=== PATIENT | male | born 1955 | race African-American/Black ===

== ENCOUNTER 2022-09-18 11:56 | Emergency (ER) | payer MEDICARE, MEDICAID, SELFPAY ==
[2022-09-18] VITALS (41 sets, daily range): BP systolic 88–153; BP diastolic 51–110; PULSE 79–164; RESP 11–32; TEMP 39.3–39.7; O2SAT 90–99; BMI 25.1
--- NOTE | 2022-09-18 12:03 | XR_ITS ---
The [address] [address] Patient Name: FEDE ARGUETA MRN: [id number] date: 1955 Sex: M Assigned Patient Location: ED.MAIN Current Patient Location: ED.MAIN Accession/Order Number: [id number] Exam Date: 09/18/2022 14:32 Report Date: 09/18/2022 17:30 At the request of: DONNA BLAIR Procedure: XR chest 1V EXAM: XR chest 1V HISTORY: altered MS, fever COMPARISON: None. TECHNIQUE: AP portable study FINDINGS: The cardiovascular silhouette is normal. Lung diana are well-expanded and clear. Pleural spaces are clear. The bony structures are unremarkable. A nasogastric tube traverses the thorax and enters the stomach. IMPRESSION: No evidence for acute cardiopulmonary disease. Electronically authenticated by: Layne DIETRICH Date: 09/18/2022 17:30
--- NOTE | 2022-09-18 12:03 | ECG_ITS ---
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
--- NOTE | 2022-09-18 12:07 | CT_ITS ---
[address] [address] Patient Name: FEDE ARGUETA MRN: [id number] date: 1955 Sex: M Assigned Patient Location: ER Current Patient Location: Accession/Order Number: [id number] Exam Date: 09/18/2022 14:32 Report Date: 09/18/2022 15:41 At the request of: DONNA BLAIR Procedure: CT abdomen pelvis wo con CT abdomen pelvis wo con, 09/18/2022 2:32 PM EDT INDICATION: Fever, suprapubic catheter, vomiting COMPARISON: Noncontrast CT scan of the abdomen and pelvis 07/20/2022 TECHNIQUE: Axial images of the abdomen and pelvis were obtained without IV contrast. Multiplanar reformatted images were generated and reviewed as needed. Dose reduction techniques were achieved by using automated exposure control and/or adjustment of mA and/or kV according to patient size and/or use of iterative reconstruction technique. FINDINGS: Subsegmental atelectasis and dependent atelectasis at the lung base bilaterally. Trace left pleural effusion. Cholelithiasis. The liver is 21 cm in craniocaudal dimension. The pancreas, spleen and adrenals are unremarkable on a non contrast scan. Small nonobstructing right renal calculi. 1.5 x 1.2 cm calculus within the left renal pelvis with moderate left pelvicaliectasis. The left kidney is enlarged with perinephric fat stranding. Mild bilateral retroperitoneal fat stranding extending into the pelvis. The urinary bladder is collapsed around a suprapubic Hernandez catheter balloon. Diffuse urinary bladder wall thickening. Central calcifications within a normal-sized prostate gland. No aortic aneurysm. Right central venous catheter with tip in the right external iliac vein. Nasogastric tube tip within the gastric lumen with side hole at the EG junction. Large amount of stool distending a redundant distal rectosigmoid colon 7.4 cm in maximum diameter. Mild perirectal fat stranding and presacral edema. No pneumatosis, pneumoperitoneum or ascites. No mesenteric or retroperitoneal lymphadenopathy. No acute fracture or dislocation. Stable sclerotic foci within the pelvis and small radiopacities within the left femoral head. IMPRESSION: 1. Large calculus within the left renal pelvis with moderate left hydronephrosis. Small nonobstructing right renal calculi. Underlying infection cannot be excluded. 2. Mild proctitis with dilatation of the distal rectosigmoid colon secondary to constipation/fecal impaction. 3. Nasogastric tube side hole at the EG junction. This places the patient risk for aspiration. Recommend advancing enteric tube 5 cm for more optimal placement. 4. Bilateral lower lobe atelectasis with trace left pleural effusion. 5. Right central venous catheter in satisfactory position. 6. Cholelithiasis. 7. Hepatomegaly. Electronically authenticated by: CAROLYN HERRING Date: 09/18/2022 15:41
[2022-09-18 13:41] LABS: Hematocrit 37.9 % (42.0-54.0); Hemoglobin 12.5 g/dL (14.0-18.0); Mean Corpuscular Hemoglobin 28.2 pg (25.9-34.0); Mean Corpuscular Volume 85.6 fL (80.0-94.0); Mean Platelet Volume 9.5 fL (9.5-13.5); Platelet Count 202 10^3/uL (150-450); Red Blood Count 4.43 10^6/uL (4.70-6.10); Red Cell Distribution Width 14.2 % (11.0-15.0); White Blood Count 9.8 10^3/uL (4.0-11.0)
--- NOTE | 2022-09-18 13:41 | PC.NURSE ---
Charting delayed due to inability to get IV access. Pt came in unable to answer any questions and yelling. Pt has suprapubic catheter in at time of arrival with cloudy sediment filled urine in bag. Sample was obtained after pinching off tubing and sent to lab. multiple IV attmepts by this RN as well as Rand RN unscuccessfully. Dr. Haas was able to place central line in right groin area. Blood was obtained from central line as well as cultures and sent to lab. lab was able to draw the second culture. NG was placed due to pt having dark brown emesis noted at time of arrival. Pt recently had a ureter stent in after kidney stone surgery. Pt is supposed to have another stent placed due to stones in kidney on left side.
[2022-09-18 13:42] LABS: Bilirubin Urine NEGATIVE (NEGATIVE); Blood Urine LARGE (NEGATIVE); Clarity Urine CLEAR (CLEAR); Color Urine LT. YELLOW (YELLOW); Glucose Urine UA NEGATIVE (NEGATIVE); Ketones Urine NEGATIVE (NEGATIVE); Leukocyte Esterase Urine MODERATE (NEGATIVE); Nitrite Urine POSITIVE (NEGATIVE); Protein Urine 100 mg/dL (NEG/TRACE); Specific Gravity Urine 1.025 (1.005-1.025); Urobilinogen Urine 0.2 EU/dL (0.2-1.0); pH Urine 5.5 (5.0-9.0)
[2022-09-18 13:43] LABS: Urine Microscopic Indicated YES
--- NOTE | 2022-09-18 13:44 | PC.NURSE ---
NG was placed in right nare with no issues and taped. Auscultation verified placement and x ray will be ordered.
[2022-09-18 13:50] LABS: WBC Urine 75-100 #/HPF (NONE SEEN)
[2022-09-18 13:51] LABS: Bacteria Urine MODERATE #/HPF (NONE SEEN); Cast Seen? NONE SEEN #/LPF (NONE SEEN); Crystals Seen? None Seen #/HPF (None Seen); Mucus Urine SMALL (NONE SEEN); Squamous Epithelial Cell Urine FEW #/LPF (NONE/RARE); Urine Culture Indicated YES
[2022-09-18] MEDS: LORAZEPAM 2 MG/ML 1 ML VIAL 1 MG IV (13:53)
[2022-09-18] MEDS: MORPHINE SULFATE 2 MG/ML SYRINGE (13:58)
[2022-09-18] MEDS: 0.9 % SODIUM CHLORIDE 1,000 ML 999 ML (13:58)
[2022-09-18] MEDS: ACETAMINOPHEN 650 MG RECTAL SUPPOSITORY PR (13:59)
[2022-09-18 14:01] LABS: Alanine Aminotransferase 12 U/L (16-63); Albumin Globulin Ratio 0.7; Alkaline Phosphatase 83 U/L (46-116); Aspartate Amino Transferase 18 U/L (15-37); BUN Creatinine Ratio 11.1; Calcium 8.8 mg/dL (8.5-10.1); Carbon Dioxide 20.9 mmol/L (21.0-32.0); Chloride 104 mmol/L (98-107); Estimated GFR (African America 37 (>=60); Estimated GFR (Non-African Ame 31 (>=60); Globulin 4.4 g/dL; Glucose 135 mg/dL (74-106); Potassium 3.9 mmol/L (3.5-5.1); Sodium 139 mmol/L (136-145); Total Protein 7.4 g/dL (6.4-8.2)
[2022-09-18 14:09] LABS: Lymphocytes Absolute Manual 0.29 10^3/uL (1.20-3.80); Monocytes Absolute Manual 0.19 10^3/uL (0.30-0.80); Segmented Neut Absolute Manual 9.31 10^3/uL (1.4-6.5)
[2022-09-18 14:36] LABS: Lactate/Lactic Acid 4.1 mmol/L (0.4-2.0)
[2022-09-18] MEDS: ONDANSETRON PF 4 MG/2 ML VIAL (14:38)
[2022-09-18] MEDS: PIPERACILLIN SODIUM/TAZOBACTAM 3.375 GM in 0.9 % SODIUM CHLORIDE 50 ML IV (14:39)
[2022-09-18] MEDS: 0.9 % SODIUM CHLORIDE 1,000 ML 1000 ML IV (16:40)
[2022-09-18] MEDS: ERTAPENEM SODIUM 1,000 MG in 0.9 % SODIUM CHLORIDE 50 ML IV (18:00)
--- NOTE | 2022-09-18 18:04 | ED.AMS1 ---
HPI - Altered Mental Status General Chief Complaint: Altered Mental Status Stated Complaint: FEVER Time Seen by Provider: 09/18/22 12:01 Source: other Source comment: squad Mode of arrival: ambulance Limitations: altered mental status and physical limitation History of Present Illness HPI narrative: 67-year-old male who has quadriplegia presents from home for altered mental status and fever. He is unable to give any history. His gives some history. Paramedics gave more history. The states that a month ago he had a kidney stone on the right and they had to take it out. He had a stent which has been removed. He was scheduled next month to have this other stone removed. It's not clear when the symptoms started but it appears to be within the last day. No further history is obtainable from the patient. Related Data Allergies Allergy/AdvReac Type Severity Reaction Status Date / Time No Known Drug Allergies Allergy Verified 09/18/22 13:48 Review of Systems ROS Narrative unable to be obtained, altered mental status Exam Narrative Exam Narrative: Nurses note and vital signs reviewed and patient is not hypoxic. General: The patient appears to be rocking back and forth and is frequently moaning. He is nonverbal now. Skin: Warm, dry, no pallor noted. There is no rash noted. Head: Normocephalic, atraumatic Eye: Normal conjunctiva, no drainage Ears, Nose, Mouth, and Throat: oral mucosa is mildly dry Cardiovascular: Regular Rate and Rhythm, quite tachycardic Respiratory: Patient is in no distress, no accessory muscle use, lungs are clear to auscultation, no wheezing, rales or rhonchi Back: non-tender GI: no tenderness on palpation nor any distention Musculoskeletal: The patient has no evidence of calf tenderness, no pitting edema, symmetrical pulses noted bilaterally. no bedsores were noted. Neurological: his eyes are open and he is moaning and rocking. He doesn't follow commands. Psychiatric: cannot be assessed Constitutional Vital Signs - 24 hr 09/18/22 11:58 09/18/22 14:50 09/18/22 12:42 Temperature 103.4 F H 102.8 F H Pulse Rate Pulse Rate [Monitor] 134 H Respiratory Rate 28 H Blood Pressure Blood Pressure [Right Arm] 153/110 H Pulse Oximetry 97 93 L Oxygen Delivery Method Room Air 09/18/22 12:50 09/18/22 13:00 09/18/22 13:10 Temperature Pulse Rate 164 H 158 H 152 H Pulse Rate [Monitor] Respiratory Rate 25 H 19 15 Blood Pressure Blood Pressure [Right Arm] Pulse Oximetry 93 L 94 L 90 L Oxygen Delivery Method 09/18/22 13:20 09/18/22 13:30 09/18/22 13:31 Temperature Pulse Rate 144 H 139 H 139 H Pulse Rate [Monitor] Respiratory Rate 17 20 26 H Blood Pressure Blood Pressure [Right Arm] Pulse Oximetry 93 L 94 L Oxygen Delivery Method 09/18/22 13:32 09/18/22 13:45 09/18/22 14:01 Temperature Pulse Rate 134 H 124 H 124 H Pulse Rate [Monitor] Respiratory Rate 17 18 17 Blood Pressure 118/72 104/69 Blood Pressure [Right Arm] Pulse Oximetry 95 94 L Oxygen Delivery Method 09/18/22 14:10 09/18/22 14:20 09/18/22 14:31 Temperature Pulse Rate 121 H 123 H 79 Pulse Rate [Monitor] Respiratory Rate 14 11 L Blood Pressure Blood Pressure [Right Arm] Pulse Oximetry Oxygen Delivery Method 09/18/22 14:38 09/18/22 14:38 09/18/22 14:38 Temperature Pulse Rate 119 H 119 H 120 H Pulse Rate [Monitor] Respiratory Rate Blood Pressure 90/58 L 90/58 L Blood Pressure [Right Arm] Pulse Oximetry 97 99 95 Oxygen Delivery Method 09/18/22 14:45 09/18/22 14:45 09/18/22 15:00 Temperature Pulse Rate 118 H 120 H 122 H Pulse Rate [Monitor] Respiratory Rate 21 18 15 Blood Pressure 92/55 L 92/55 L 91/54 L Blood Pressure [Right Arm] Pulse Oximetry 96 93 L 94 L Oxygen Delivery Method 09/18/22 15:15 09/18/22 15:30 09/18/22 15:45 Temperature Pulse Rate 127 H 130 H 133 H Pulse Rate [Monitor] Respiratory Rate 14 20 14 Blood Pressure 98/51 L 101/58 L 116/62 Blood Pressure [Right Arm] Pulse Oximetry 94 L 96 95 Oxygen Delivery Method 09/18/22 16:00 09/18/22 16:16 09/18/22 16:30 Temperature Pulse Rate 132 H 133 H 132 H Pulse Rate [Monitor] Respiratory Rate 28 H 15 14 Blood Pressure 110/55 L 102/60 107/63 Blood Pressure [Right Arm] Pulse Oximetry 95 95 95 Oxygen Delivery Method 09/18/22 16:45 Temperature Pulse Rate 135 H Pulse Rate [Monitor] Respiratory Rate 14 Blood Pressure 98/63 Blood Pressure [Right Arm] Pulse Oximetry 93 L Oxygen Delivery Method Course Vital Signs Vital signs: Vital Signs Temperature 103.4 F H 09/18/22 11:58 Pulse Rate 134 H 09/18/22 11:58 Respiratory Rate 28 H 09/18/22 11:58 Blood Pressure 153/110 H 09/18/22 11:58 Pulse Oximetry 97 09/18/22 11:58 Oxygen Delivery Method Room Air 09/18/22 11:58 Temperature 102.8 F H 09/18/22 14:50 Pulse Rate 135 H 09/18/22 16:45 Respiratory Rate 14 09/18/22 16:45 Blood Pressure 98/63 09/18/22 16:45 Pulse Oximetry 93 L 09/18/22 16:45 Oxygen Delivery Method Room Air 09/18/22 11:58 MDM - Altered Mental Status MDM Narrative Medical decision making narrative: My clinical impression is that he has a septic kidney stone. He has remained tachycardic but was given IV fluids and blood pressure has been maintained. Initially IV Zosyn was given but then by telephone when I spoke to the [facility] urologist she was able to look up some old cultures and she recommended that Ertapenam and amikacin be given, so this was accomplished. No evidence of pneumonia. BUN and creatinine are increased from a month ago according to the [facility] physician. Lactic acid is 4.1. I have spoken to and at the [facility] and they accept the patient to their ICU. The plan is for interventional radiology to place an emergent nephrostomy tube.findings are discussed thoroughly with his and she requests transfer to the [facility] and this is being accomplished as well. He is stable for transfer. Differential Diagnosis Differential diagnosis: Likely altered mental status, delirium, hyponatremia and sepsis Lab Data Attestation: I reviewed the patient's lab results. Labs: Lab Results 09/18/22 09/18/22 09/18/22 Range/Units 12:30 12:45 13:43 WBC 9.8 (4.0-11.0) 10^3/uL RBC 4.43 L (4.70-6.10) 10^6/uL Hgb 12.5 L (14.0-18.0) g/dL Hct 37.9 L (42.0-54.0) % MCV 85.6 (80.0-94.0) fL MCH 28.2 (25.9-34.0) pg MCHC 33.0 (29.9-35.2) g/dL RDW 14.2 (11.0-15.0) % Plt Count 202 (150-450) 10^3/uL MPV 9.5 (9.5-13.5) fL Seg Neuts % (Manual) 95.0 Lymphocytes % (Manual) 3.0 L (20.5-60.0) % Monocytes % (Manual) 2.0 (1.7-12.0) % Eosinophils % (Manual) 0.0 L (0.9-7.0) % Basophils % (Manual) 0.0 L (0.2-2.0) % Neutrophils # (Manual) 9.31 H (1.4-6.5) 10^3/uL Lymphocytes # (Manual) 0.29 L (1.20-3.80) 10^3/uL Monocytes # (Manual) 0.19 L (0.30-0.80) 10^3/uL Eosinophils # (Manual) 0.00 (0.00-0.70) 10^3/uL Basophils # (Manual) 0.00 (0.00-0.10) 10^3/uL Sodium 139 (136-145) mmol/L Potassium 3.9 (3.5-5.1) mmol/L Chloride 104 (98-107) mmol/L Carbon Dioxide 20.9 L (21.0-32.0) mmol/L Anion Gap 18.0 BUN 24.0 H (7.0-18.0) mg/dL Creatinine 2.16 H (0.70-1.30) mg/dL Est GFR ( Amer) 37 L (>=60) Est GFR (Non-Af Amer) 31 L (>=60) BUN/Creatinine Ratio 11.1 Glucose 135 H (74-106) mg/dL Lactate 4.1 H* (0.4-2.0) mmol/L Calcium 8.8 (8.5-10.1) mg/dL Total Bilirubin 1.0 (0.2-1.0) mg/dL AST 18 (15-37) U/L ALT 12 L (16-63) U/L Alkaline Phosphatase 83 (46-116) U/L Total Protein 7.4 (6.4-8.2) g/dL Albumin 3.0 L (3.4-5.0) g/dL Globulin 4.4 g/dL Albumin/Globulin Ratio 0.7 Urine Color Lt. yellow (YELLOW) Urine Clarity Clear (CLEAR) Urine pH 5.5 (5.0-9.0) Ur Specific [place] 1.025 (1.005-1.025) Urine Protein 100 A (NEG/TRACE) mg/dL Urine Glucose (UA) Negative (NEGATIVE) mg/dL Urine Ketones Negative (NEGATIVE) mg/dL Urine Occult Blood Large A (NEGATIVE) Urine Nitrite Positive A (NEGATIVE) Urine Bilirubin Negative (NEGATIVE) Urine Urobilinogen 0.2 (0.2-1.0) EU/dL Ur Leukocyte Esterase Moderate A (NEGATIVE) Urine RBC 5-10 A (0-2) #/HPF Urine WBC 75-100 A (NONE SEEN) #/HPF Ur Squamous Epith Cells Few A (NONE/RARE) #/LPF Urine Crystals None seen (None Seen) #/HPF Urine Bacteria Moderate A (NONE SEEN) #/HPF Urine Casts None seen (NONE SEEN) #/LPF Urine Mucus Small A (NONE SEEN) Ur Culture Indicated? Yes ECG Data Attestation: I personally reviewed and interpreted this ECG as follows: ( EKG on my interpretation shows sinus tachycardia with a rate of118) Critical Care Time Critical Care Time Critical Care Time: Yes Total Critical Care Time: 120 Attestation: Due to the high probability of deterioration in this patient critical care time was necessary. Critical care time noted is in addition to any procedures performed. Discharge Plan Discharge Chief Complaint: Altered Mental Status Clinical Impression: Urinary tract infection, Kidney stone, Sepsis Patient Disposition: [facility] Time of Disposition Decision: 18:02 Discharge Location: [facility] Condition: Fair Mode of Transportation: EMS Procedures ED Procedure Instructions Procedures Procedures: the following procedure was performed by me. The patient has poor peripheral access. I have decided to place central line. Right femoral central line was placed. The area was prepped and draped sterilely. Local infiltration was carried out with one percent lidocaine without epinephrine resulting in good skin anesthesia. The 1st two attempts resulted in obtaining venous blood but the patient was moving around and access was lost. On the 3rd attempt venous blood was obtained and the wire was passed without difficulty. The triple-lumen catheter was then placed and sutured in place. Blood blood return and flush ?3. No complications.
[2022-09-18 18:54] LABS: Lactate/Lactic Acid 3.4 mmol/L (0.4-2.0)
[2022-09-18] MEDS: 0.9 % SODIUM CHLORIDE 1,000 ML 100 ML IV (18:58)
[2022-09-18] MEDS: ONDANSETRON PF 4 MG/2 ML VIAL IV (20:56)
[2022-09-18] MEDS: HYDROMORPHONE HCL 1 MG/ML CARTRIDGE IVP (20:56)
--- NOTE | 2022-09-18 21:22 | PC.NURSE ---
Report called to HANY Juarez at [facility] G62 bed 2 at [phone]
[2022-09-18] MEDS: HYDROMORPHONE HCL 2 MG/ML VIAL 1 MG IV (22:58)
--- NOTE | 2022-09-18 23:22 | PC.NURSE ---
SITE CLEAN, DRY, PATENT, LINE FLUSH.
--- NOTE | 2022-09-18 23:27 | PC.NURSE ---
NG AT 69IN. AND DRAINAING
[2022-09-19 01:28] LABS: A. calcoaceticus-baumannii Cpx NOT DETECTED (NOT DETECTE); Bacteroides fragilis NOT DETECTED (NOT DETECTE); Candida albicans NOT DETECTED (NOT DETECTE); Candida auris NOT DETECTED (NOT DETECTE); Candida glabrata NOT DETECTED (NOT DETECTE); Candida krusei NOT DETECTED (NOT DETECTE); Candida parapsilosis NOT DETECTED (NOT DETECTE); Candida tropicalis NOT DETECTED (NOT DETECTE); Cryptococcus neoformans/gattii NOT DETECTED (NOT DETECTE); Enterobacter cloacae complex NOT DETECTED (NOT DETECTE); Enterococcus faecalis NOT DETECTED (NOT DETECTE); Enterococcus faecium NOT DETECTED (NOT DETECTE); Haemophilus influenzae NOT DETECTED (NOT DETECTE); IMP NOT DETECTED (NOT DETECTE); KPC NOT DETECTED (NOT DETECTE); Klebsiella aerogenes NOT DETECTED (NOT DETECTE); Listeria monocytogenes NOT DETECTED (NOT DETECTE); NDM NOT DETECTED (NOT DETECTE); Neisseria meningitidis NOT DETECTED (NOT DETECTE); OXA-48-like NOT DETECTED (NOT DETECTE); Proteus spp. NOT DETECTED (NOT DETECTE); Pseudomonas aeruginosa NOT DETECTED (NOT DETECTE); Salmonella spp. NOT DETECTED (NOT DETECTE); Serratia marcescens NOT DETECTED (NOT DETECTE); Staphylococcus epidermidis NOT DETECTED (NOT DETECTE); Staphylococcus lugdunensis NOT DETECTED (NOT DETECTE); Staphylococcus spp. NOT DETECTED (NOT DETECTE); Stenotrophomonas maltophilia NOT DETECTED (NOT DETECTE); Streptococcus agalactiae NOT DETECTED (NOT DETECTE); Streptococcus pneumoniae NOT DETECTED (NOT DETECTE); Streptococcus pyogenes NOT DETECTED (NOT DETECTE); Streptococcus spp. NOT DETECTED (NOT DETECTE); VIM NOT DETECTED (NOT DETECTE); mcr-1 NOT DETECTED (NOT DETECTE); mecA/C NOT DETECTED (NOT DETECTE); mecA/C and MREJ (MRSA) NOT DETECTED (NOT DETECTE); vanA/B NOT DETECTED (NOT DETECTE)
[2022-09-19 01:30] LABS: CTX-M DETECTED (NOT DETECTE); Klebsiella pneumoniae group DETECTED (NOT DETECTE)
[2022-09-19 01:31] LABS: Enterobacterales DETECTED (NOT DETECTE)
--- NOTE | 2022-09-19 01:42 | NUTR.NU ---
This nurse called [facility] and spoke to the nurse caring for pt, relayed findings of blood cultures
== END 2022-09-18 23:30 | disposition short-term general hospital (02) ==
PROVIDERS: Emergency Provider Emergency Medicine
DX: A41.9 Sepsis, unspecified organism (principal); N39.0 Urinary tract infection, site not specified; N20.0 Calculus of kidney; Z87.442 Personal history of urinary calculi
CPT/HCPCS: 36415; 36556; 71045; 74176; 80053; 81003; 81015; 83605; 85007; 85025; 87040; 87086; 87150; 87186; 93005; 96365; 96375; 96376; 99291; 99292; J1170; J1335

== ENCOUNTER 2023-02-14 12:30 | Outpatient (REF) | payer MEDICARE, MEDICAID, SELFPAY ==
[2023-02-14 14:02] LABS: Bilirubin Urine NEGATIVE (NEGATIVE); Blood Urine SMALL (NEGATIVE); Clarity Urine CLEAR (CLEAR); Color Urine LT. YELLOW (YELLOW); Glucose Urine UA NEGATIVE (NEGATIVE); Ketones Urine NEGATIVE (NEGATIVE); Leukocyte Esterase Urine NEGATIVE (NEGATIVE); Nitrite Urine NEGATIVE (NEGATIVE); Protein Urine 100 mg/dL (NEG/TRACE); Urine Microscopic Indicated YES; Urobilinogen Urine 0.2 EU/dL (0.2-1.0); pH Urine 8.5 (5.0-9.0)
[2023-02-14 14:32] LABS: Bacteria Urine TRACE #/HPF (NONE SEEN); Mucus Urine LARGE (NONE SEEN)
[2023-02-14 14:33] LABS: Calcium Oxalate Crystals Urine RARE; Crystals Seen? Seen #/HPF (None Seen); Squamous Epithelial Cell Urine FEW #/LPF (NONE/RARE)
[2023-02-14 14:34] LABS: Amorphous Sediment Urine MODERATE; Cast Seen? SEEN #/LPF (NONE SEEN); Fine Granular Casts Urine FEW
== END 2023-02-14 12:31 | disposition home or self-care (01) ==
LOC: LAB 12:30
PROVIDERS: Visit Provider Family Medicine
DX: G82.50 Quadriplegia, unspecified (principal)
CPT/HCPCS: 81001

== ENCOUNTER 2023-03-15 13:36 | Emergency (ER) | payer MEDICARE, MEDICAID, SELFPAY ==
[2023-03-15] VITALS (58 sets, daily range): BP systolic 64–148; BP diastolic 28–87; PULSE 114–137; RESP 14–45; TEMP 38.2–39.5; O2SAT 77–100; BMI 27.4
--- NOTE | 2023-03-15 13:43 | ECG_ITS ---
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
--- NOTE | 2023-03-15 13:43 | XR_ITS ---
The [address] [address] Patient Name: FEDE ARGUETA MRN: [id number] date: 1955 Sex: M Assigned Patient Location: ER Current Patient Location: ER Accession/Order Number: [id number] Exam Date: 03/15/2023 15:24 Report Date: 03/15/2023 15:48 At the request of: JOSH ZAZUETA Procedure: XR chest 1V EXAM: XR chest 1V HISTORY: Fever, AMS COMPARISON: Chest study dated 03/15/2023 TECHNIQUE: AP view of the chest was obtained with portable technique at 3:29 PM. FINDINGS: Heart and mediastinal contours are unremarkable in appearance. Mild patchy density suggested in the right lower lung field region compatible with atelectatic and/or infiltrative changes. No obvious pneumothorax. Bony structures appear grossly intact. XR/XR chest 1V IMPRESSION: Mild atelectatic and/or infiltrative changes in the right lower lung field. Electronically authenticated by: FAIZA ACOSTA Date: 03/15/2023 15:48
--- NOTE | 2023-03-15 13:45 | ED.GENADUL1 ---
HPI - General Adult General Chief complaint: Altered Mental Status Stated complaint: ALTERED MENTAL STATUS Time Seen by Provider: 03/15/23 13:40 Source: EMR Mode of arrival: ambulance Limitations: altered mental status History of Present Illness HPI narrative: Patient is a 67-year-old male with a history of quadriplegia presents to the emergency department by ambulance for altered mental status that began sometime last night per family. Patient is unaccompanied at time of arrival to the ER so history is extremely limited. He was apparently at [facility] emergency department yesterday to have a catheter replaced, he has a chronic indwelling Hernandez catheter. He was found to have ureterolithiasis and sepsis at this facility several months ago and was sent to [facility]. Patient arrives to the ER today in his gown from [facility] emergency department. EMS reports that the patient has been laying around the home, he is not able to ambulate on a regular day, he has significant contractures of the extremities. He follows some commands but is not verbal at time of arrival. He is noted to be febrile and was hypotensive for EMS. Related Data Home Medications Medication Instructions Recorded Confirmed baclofen 20 mg tablet 20 mg PO Q8H PRN pain 03/15/23 03/15/23 bisacodyl 10 mg rectal suppository 10 mg VA DAILY PRN constipation 03/15/23 03/15/23 diclofenac potassium 50 mg tablet 50 mg PO Q12H PRN pain 03/15/23 03/15/23 gabapentin 300 mg capsule 600 mg PO Q8H 03/15/23 03/15/23 loratadine 10 mg tablet 10 mg PO Q24H 03/15/23 03/15/23 polyethylene glycol 3350 17 17 g PO DAILY PRN constipation 03/15/23 03/15/23 gram/dose oral powder sennosides 8.6 mg tablet (senna) 8.6 mg PO .QHS 03/15/23 03/15/23 trospium 20 mg tablet 20 mg PO Q12H 03/15/23 03/15/23 Allergies Allergy/AdvReac Type Severity Reaction Status Date / Time No Known Drug Allergies Allergy Verified 03/15/23 15:21 Review of Systems ROS Status of ROS unobtainable due to mental status PFSH PFSH Social History Smoking status: Unknown if ever smoked Exam Narrative Exam Narrative: Gen.: Awake, alert, breathing easily and follows some basic commands Head: Normocephalic, atraumatic ENT: Dry mucous membranes Respiratory: No respiratory distress, lungs clear bilaterally Cardio: Regular rate and rhythm Gastrointestinal: Abdomen is soft, nondistended; large bowel movement noted in diaper Extremities: Contractures of the bilateral upper extremities, left lower extremity with a large well-healed surgical incision over the hip. Small healing wound over the coccyx with no significant secondary infection Psych: Flat affect Neuro: Nonverbal, alert and oriented x 0, patient turns his head when called by his name Skin: Warm, dry, intact Constitutional Vital Signs, click to edit/add: Last Vital Signs Temp 100.7 F H 03/15/23 16:32 Pulse 117 H 03/15/23 17:50 Resp 18 03/15/23 17:50 BP 100/63 03/15/23 17:50 Pulse Ox 100 03/15/23 17:50 O2 Del Method Room Air 03/15/23 13:49 Course Vital Signs Vital signs: Vital Signs Temperature 103.1 F H 03/15/23 13:49 Pulse Rate 137 H 03/15/23 13:49 Respiratory Rate 18 03/15/23 13:49 Blood Pressure 76/50 L 03/15/23 13:49 Pulse Oximetry 95 03/15/23 13:49 Oxygen Delivery Method Room Air 03/15/23 13:49 Temperature 100.7 F H 03/15/23 16:32 Pulse Rate 117 H 03/15/23 17:50 Respiratory Rate 18 03/15/23 17:50 Blood Pressure 100/63 03/15/23 17:50 Pulse Oximetry 100 03/15/23 17:50 Oxygen Delivery Method Room Air 03/15/23 13:49 Medical Decision Making MDM Narrative Medical decision making narrative: On arrival to the emergency department, patient was found to be hypotensive, febrile with decreased responsiveness. We had significant difficulty with IV placement, an IO line was placed by nursing staff so fluids could be started. We were able to obtain some labs. fleet service manager was contacted at [phone], and contacted again at [phone] after we did not hear back from the company to have a PICC line placed for the patient. IV fluids were initiated, blood cultures were obtained and the patient was empirically placed on Zosyn, previous urine specimen at this facility was positive for Klebsiella and susceptible to Zosyn. Vancomycin was also given for MRSA coverage. Urine specimen shows UTI, patient is being actively treated for sepsis. 1630: Patient has received 2 full liters of IV fluids with improvement of blood pressure, mild improvement of tachycardia. Lab studies reviewed and noted showing leukocytosis with bandemia, significantly elevated lactic acid, acute renal failure and elevated troponin. After administration of fluids and Tylenol, patient is significantly more awake and alert. He is interactive with his family at bedside. CT of the brain with no evidence of acute abnormalities, chest x-ray with questionable right lower lobe infiltrate and CT of the abdomen and pelvis without contrast does not show any evidence of obstructed stone although there is significant fecal impaction causing colitis. Attempted fecal impaction by nursing staff at bedside without significant success, stool is soft and patient is passing stool into his diaper. fleet service manager has now arrived and presented to bedside to speak with family regarding PICC line placement, they are in agreement with this and provided consent and PICC line will be placed. 1800: PICC line placed, chest x-ray to confirm placement. I discussed the case with Dr. Osorio for admission to ICU at this facility, but on discussion with the patient's , who is and does not live with the patient, she prefers that he is transferred to [facility] where he has been admitted in the past. This facility is closer to her home and she would like him transferred there. We did discuss this with the patient who is much more awake and alert, attending physician at bedside and the patient is in agreement with transfer to [facility]. We will contact the hospitalist service to request transfer. Patient's blood pressure at this time is 103/66 with heart rate 116 and patient is 100% on room air. 1830: Patient accepted by Dr. Quick to [facility], she requested imipenem in addition to the Zosyn and vancomycin that has already been given. Patient will be transferred to [facility] by ambulance. He is much more stable at this time, although blood pressures remain soft and if needed the patient will be treated with Levophed although he is much improved at this time. Troponin and lactic acid are downtrending. Critical care time 45 minutes Medical Records Medical records reviewed: Yes I reviewed the patient's medical records Lab Data Lab results reviewed: Yes I reviewed the patient's lab results Labs: Lab Results 03/15/23 03/15/23 03/15/23 Range/Units 13:48 14:00 14:45 WBC 19.2 H (4.0-11.0) 10^3/uL RBC 5.05 (4.70-6.10) 10^6/uL Hgb 13.9 L (14.0-18.0) g/dL Hct 46.0 (42.0-54.0) % MCV 91.1 (80.0-94.0) fL MCH 27.5 (25.9-34.0) pg MCHC 30.2 (29.9-35.2) g/dL RDW 15.6 H (11.0-15.0) % Plt Count 148 L (150-450) 10^3/uL MPV 10.2 (9.5-13.5) fL Seg Neuts % (Manual) 72.0 Band Neutrophils % 18.0 H (0-5) % Lymphocytes % (Manual) 5.0 L (20.5-60.0) % Monocytes % (Manual) 5.0 (1.7-12.0) % Eosinophils % (Manual) 0.0 L (0.9-7.0) % Basophils % (Manual) 0.0 L (0.2-2.0) % Neutrophils # (Manual) 13.82 H (1.4-6.5) 10^3/uL Band Neutrophils # 3.5 H (0.0-0.3) 10^3/uL Lymphocytes # (Manual) 0.96 L (1.20-3.80) 10^3/uL Monocytes # (Manual) 0.96 H (0.30-0.80) 10^3/uL Eosinophils # (Manual) 0.00 (0.00-0.70) 10^3/uL Basophils # (Manual) 0.00 (0.00-0.10) 10^3/uL Anisocytosis 1+ ESR 55 H (<=20) mm/hr PT (9.0-11.6) sec INR VBG pH 7.400 (7.330-7.430) VBG pCO2 28.7 L (40.0-52.0) mmHg Sodium 141 (136-145) mmol/L Potassium 5.0 (3.5-5.1) mmol/L Chloride 105 (98-107) mmol/L Carbon Dioxide 21.8 (21.0-32.0) mmol/L Anion Gap 19.2 BUN 37.0 H (7.0-18.0) mg/dL Creatinine 4.30 H (0.70-1.30) mg/dL Est GFR ( Amer) 17 L (>=60) Est GFR (Non-Af Amer) 14 L (>=60) BUN/Creatinine Ratio 8.6 Glucose 61 L (74-106) mg/dL Lactate 5.3 H* (0.4-2.0) mmol/L Calcium 8.2 L (8.5-10.1) mg/dL Total Bilirubin 0.7 (0.2-1.0) mg/dL AST 169 H (15-37) U/L ALT 50 (16-63) U/L Alkaline Phosphatase 65 (46-116) U/L Ammonia 29 (11-32) umol/L Troponin I High Sens 142.4 H* (4.0-76.1) pg/mL C-Reactive Protein 18.19 H (<=0.50) mg/dL Total Protein 6.8 (6.4-8.2) g/dL Albumin 3.0 L (3.4-5.0) g/dL Globulin 3.8 g/dL Albumin/Globulin Ratio 0.8 Procalcitonin >200.00 H (0.00-0.50) ng/mL Urine Color Brown A (YELLOW) Urine Clarity Cloudy A (CLEAR) Urine pH 6.0 (5.0-9.0) Ur Specific Dennis 1.015 (1.005-1.025) Urine Protein 100 A (NEG/TRACE) mg/dL Urine Glucose (UA) Negative (NEGATIVE) mg/dL Urine Ketones Trace A (NEGATIVE) mg/dL Urine Occult Blood Large A (NEGATIVE) Urine Nitrite Negative (NEGATIVE) Urine Bilirubin Negative (NEGATIVE) Urine Urobilinogen 0.2 (0.2-1.0) EU/dL Ur Leukocyte Esterase Large A (NEGATIVE) Urine RBC 2-5 A (0-2) #/HPF Urine WBC >100 A (NONE SEEN) #/HPF Ur Squamous Epith Cells None seen (NONE/RARE) #/LPF Urine Crystals None seen (None Seen) #/HPF Urine Bacteria Moderate A (NONE SEEN) #/HPF Urine Casts None seen (NONE SEEN) #/LPF Urine Mucus None seen (NONE SEEN) Ur Culture Indicated? Yes Adenovirus (PCR) Not detected (NOT DETECTE) C. pneumoniae DNA (PCR) Not detected (NOT DETECTE) Coronavirus Type OC43 Not detected (NOT DETECTE) Coronavirus Type HKU1 Not detected (NOT DETECTE) Coronavirus Type 229E Not detected (NOT DETECTE) Coronavirus Type NL63 Not detected (NOT DETECTE) Human Metapneumovir PCR Not detected (NOT DETECTE) M. pneumoniae (PCR) Not detected (NOT DETECTE) Parainfluenza PCR Not detected (NOT DETECTE) Parainfluenza 2 (PCR) Not detected (NOT DETECTE) Parainfluenza 3 (PCR) Not detected (NOT DETECTE) Parainfluenza 4 (PCR) Not detected (NOT DETECTE) RSV (RT-PCR) Not detected (NOT DETECTE) Entero/Rhino (PCR) Not detected (NOT DETECTE) SARS-CoV-2 (PCR) Not detected (NOT DETECTE) Bordetella pertussis (PCR) Not detected (NOT DETECTE) B parapertussis DNA PCR Not detected (NOT DETECTE) Influenza Type A (PCR) Not detected (NOT DETECTE) Influenza Type B (PCR) Not detected (NOT DETECTE) 03/15/23 03/15/23 Range/Units 15:53 17:50 WBC (4.0-11.0) 10^3/uL RBC (4.70-6.10) 10^6/uL Hgb (14.0-18.0) g/dL Hct (42.0-54.0) % MCV (80.0-94.0) fL MCH (25.9-34.0) pg MCHC (29.9-35.2) g/dL RDW (11.0-15.0) % Plt Count (150-450) 10^3/uL MPV (9.5-13.5) fL Seg Neuts % (Manual) Band Neutrophils % (0-5) % Lymphocytes % (Manual) (20.5-60.0) % Monocytes % (Manual) (1.7-12.0) % Eosinophils % (Manual) (0.9-7.0) % Basophils % (Manual) (0.2-2.0) % Neutrophils # (Manual) (1.4-6.5) 10^3/uL Band Neutrophils # (0.0-0.3) 10^3/uL Lymphocytes # (Manual) (1.20-3.80) 10^3/uL Monocytes # (Manual) (0.30-0.80) 10^3/uL Eosinophils # (Manual) (0.00-0.70) 10^3/uL Basophils # (Manual) (0.00-0.10) 10^3/uL Anisocytosis ESR (<=20) mm/hr PT 14.3 H (9.0-11.6) sec INR 1.37 VBG pH (7.330-7.430) VBG pCO2 (40.0-52.0) mmHg Sodium (136-145) mmol/L Potassium (3.5-5.1) mmol/L Chloride (98-107) mmol/L Carbon Dioxide (21.0-32.0) mmol/L Anion Gap BUN (7.0-18.0) mg/dL Creatinine 4.24 H (0.70-1.30) mg/dL Est GFR ( Amer) 17 L (>=60) Est GFR (Non-Af Amer) 14 L (>=60) BUN/Creatinine Ratio Glucose (74-106) mg/dL Lactate 4.3 H* (0.4-2.0) mmol/L Calcium (8.5-10.1) mg/dL Total Bilirubin (0.2-1.0) mg/dL AST (15-37) U/L ALT (16-63) U/L Alkaline Phosphatase (46-116) U/L Ammonia (11-32) umol/L Troponin I High Sens 135.5 H* (4.0-76.1) pg/mL C-Reactive Protein (<=0.50) mg/dL Total Protein (6.4-8.2) g/dL Albumin (3.4-5.0) g/dL Globulin g/dL Albumin/Globulin Ratio Procalcitonin (0.00-0.50) ng/mL Urine Color (YELLOW) Urine Clarity (CLEAR) Urine pH (5.0-9.0) Ur Specific Dennis (1.005-1.025) Urine Protein (NEG/TRACE) mg/dL Urine Glucose (UA) (NEGATIVE) mg/dL Urine Ketones (NEGATIVE) mg/dL Urine Occult Blood (NEGATIVE) Urine Nitrite (NEGATIVE) Urine Bilirubin (NEGATIVE) Urine Urobilinogen (0.2-1.0) EU/dL Ur Leukocyte Esterase (NEGATIVE) Urine RBC (0-2) #/HPF Urine WBC (NONE SEEN) #/HPF Ur Squamous Epith Cells (NONE/RARE) #/LPF Urine Crystals (None Seen) #/HPF Urine Bacteria (NONE SEEN) #/HPF Urine Casts (NONE SEEN) #/LPF Urine Mucus (NONE SEEN) Ur Culture Indicated? Adenovirus (PCR) (NOT DETECTE) C. pneumoniae DNA (PCR) (NOT DETECTE) Coronavirus Type OC43 (NOT DETECTE) Coronavirus Type HKU1 (NOT DETECTE) Coronavirus Type 229E (NOT DETECTE) Coronavirus Type NL63 (NOT DETECTE) Human Metapneumovir PCR (NOT DETECTE) M. pneumoniae (PCR) (NOT DETECTE) Parainfluenza PCR (NOT DETECTE) Parainfluenza 2 (PCR) (NOT DETECTE) Parainfluenza 3 (PCR) (NOT DETECTE) Parainfluenza 4 (PCR) (NOT DETECTE) RSV (RT-PCR) (NOT DETECTE) Entero/Rhino (PCR) (NOT DETECTE) SARS-CoV-2 (PCR) (NOT DETECTE) Bordetella pertussis (PCR) (NOT DETECTE) B parapertussis DNA PCR (NOT DETECTE) Influenza Type A (PCR) (NOT DETECTE) Influenza Type B (PCR) (NOT DETECTE) Imaging Data CT scan - head: Attestation: I have reviewed the pertinent imaging results. Radiologist's impression: Procedure: CT stroke head/brain wo con CT stroke head/brain wo con, 03/15/2023 3:24 PM EST INDICATION: AMS COMPARISON: No prior CT scan of the head available for comparison at the time of this dictation. TECHNIQUE: Axial CT images of the brain from skull base to vertex, including portions of the face and sinuses, were obtained without contrast. Multiplanar reformatted images were generated and reviewed as needed. FINDINGS: No intracranial mass, hydrocephalus, midline shift or acute hemorrhage. No extra-axial collection. Cano-white matter differentiation is preserved. The paranasal sinuses and mastoid air cells are clear. Orbits are within normal limits. No acute skull fracture. IMPRESSION: No acute intracranial abnormality. Electronically authenticated by: CAROLYN HERRING Date: 03/15/2023 15:45 Chest x-ray: Attestation: I have reviewed the pertinent imaging results. Radiologist's impression: Procedure: XR chest 1V EXAM: XR chest 1V HISTORY: Fever, AMS COMPARISON: Chest study dated 03/15/2023 TECHNIQUE: AP view of the chest was obtained with portable technique at 3:29 PM. FINDINGS: Heart and mediastinal contours are unremarkable in appearance. Mild patchy density suggested in the right lower lung field region compatible with atelectatic and/or infiltrative changes. No obvious pneumothorax. Bony structures appear grossly intact. IMPRESSION: Mild atelectatic and/or infiltrative changes in the right lower lung field. Electronically authenticated by: FIAZA ACOSTA Date: 03/15/2023 15:48 CT scan - abdomen: Attestation: I have reviewed the pertinent imaging results. Radiologist's impression: Procedure: CT abdomen pelvis wo con CT abdomen pelvis wo con, 03/15/2023 3:24 PM EST INDICATION: Sepsis, hx septic stone COMPARISON: Noncontrast CT of the abdomen and pelvis 09/18/2022 TECHNIQUE: Axial images of the abdomen and pelvis were obtained without IV contrast. Multiplanar reformatted images were generated and reviewed as needed. Dose reduction techniques were achieved by using automated exposure control and/or adjustment of mA and/or kV according to patient size and/or use of iterative reconstruction technique. FINDINGS: Images degraded by motion artifact. Mild dependent consolidation within the lower lobes bilaterally with trace right pleural fluid. Cholelithiasis. Probable liver, pancreas, spleen and adrenals grossly unremarkable on a noncontrast scan. No gross findings of hydronephrosis or nephrolithiasis. Dense intraluminal contents within a partially collapsed urinary bladder. Hernandez catheter in satisfactory position. Punctate calcifications adjacent to Hernandez catheter balloon at the base of the urinary bladder. Calcifications within an enlarged prostate gland. No aortic aneurysm. No bowel obstruction. No pneumatosis or pneumoperitoneum. No free fluid in the pelvis. Mild perirectal and presacral fat stranding. Large amounts of stool distending the rectosigmoid colon with circumferential rectal wall thickening. Prominent external iliac lymph nodes bilaterally, the largest a right external iliac lymph node 1.0 cm short axis. No acute fracture. Stable sclerotic foci within the pelvis. Radiopacities within the head of the left femur and left acetabular roof. IMPRESSION: 1. Fecal impaction of the rectosigmoid colon with stercoral colitis. 2. Mild retroperitoneal lymphadenopathy. 3. Small urinary bladder calculi. Dense intraluminal content within the urinary bladder may represent proteinaceous urine or blood products. No hydronephrosis or nephrolithiasis. 4. Cholelithiasis. 5. Bilateral lower lobe consolidation with trace right pleural effusion. Underlying infection cannot be excluded. 6. Prostatomegaly. Electronically authenticated by: CAROLYN HERRING Date: 03/15/2023 15:58 ECG Data Attestation: I personally reviewed and interpreted this ECG as follows: (Sinus tachycardia at a rate of 136, artifact present with no acute ST elevation or ectopy. EKG reviewed by attending physician) Critical Care Time Critical Care Time Total Critical Care Time: 45 Discharge Plan Discharge Chief Complaint: Altered Mental Status Clinical Impression: Urinary tract infection, Acute renal failure, Sepsis, Altered mental status Patient Disposition: [facility] Time of Disposition Decision: 18:33 Discharge Location: [facility] Prescriptions / Home Meds: No Action sennosides [senna] 8.6 mg tablet 8.6 mg PO .QHS baclofen 20 mg tablet 20 mg PO Q8H PRN (Reason: pain) loratadine 10 mg tablet 10 mg PO Q24H trospium 20 mg tablet 20 mg PO Q12H Rx Instructions: before meals bisacodyl 10 mg suppository 10 mg VA DAILY PRN (Reason: constipation) diclofenac potassium 50 mg tablet 50 mg PO Q12H PRN (Reason: pain) gabapentin 300 mg capsule 600 mg PO Q8H polyethylene glycol 3350 17 gram/dose powder 17 g PO DAILY PRN (Reason: constipation) Referrals: Physician,Non-Staff, MD [Primary Care Provider] - 1 week
[2023-03-15] MEDS: ACETAMINOPHEN 325 MG RECTAL SUPPOSITORY 975 MG PR (13:58)
[2023-03-15 14:21] LABS: Adenovirus NOT DETECTED (NOT DETECTE); Bordetella parapertussis NOT DETECTED (NOT DETECTE); Coronavirus 229E NOT DETECTED (NOT DETECTE); Coronavirus HKU1 NOT DETECTED (NOT DETECTE); Coronavirus NL63 NOT DETECTED (NOT DETECTE); Coronavirus OC43 NOT DETECTED (NOT DETECTE); Human Metapneumovirus NOT DETECTED (NOT DETECTE); Human Rhinovirus/Enterovirus NOT DETECTED (NOT DETECTE); Influenza A NOT DETECTED (NOT DETECTE); Influenza B NOT DETECTED (NOT DETECTE); Mycoplasma pneumoniae NOT DETECTED (NOT DETECTE); Parainfluenza Virus 1 NOT DETECTED (NOT DETECTE); Parainfluenza Virus 2 NOT DETECTED (NOT DETECTE); Parainfluenza Virus 3 NOT DETECTED (NOT DETECTE); Parainfluenza Virus 4 NOT DETECTED (NOT DETECTE); Respiratory Syncytial Virus NOT DETECTED (NOT DETECTE); SARS-CoV-2 NOT DETECTED (NOT DETECTE)
[2023-03-15 14:24] LABS: Bilirubin Urine NEGATIVE (NEGATIVE); Blood Urine LARGE (NEGATIVE); Clarity Urine CLOUDY (CLEAR); Color Urine BROWN (YELLOW); Glucose Urine UA NEGATIVE (NEGATIVE); Ketones Urine TRACE mg/dL (NEGATIVE); Leukocyte Esterase Urine LARGE (NEGATIVE); Nitrite Urine NEGATIVE (NEGATIVE); Protein Urine 100 mg/dL (NEG/TRACE); Specific Gravity Urine 1.015 (1.005-1.025); Urine Microscopic Indicated YES; Urobilinogen Urine 0.2 EU/dL (0.2-1.0)
[2023-03-15 14:30] LABS: Bacteria Urine MODERATE #/HPF (NONE SEEN); Cast Seen? NONE SEEN #/LPF (NONE SEEN); Crystals Seen? None Seen #/HPF (None Seen); Mucus Urine NONE SEEN (NONE SEEN); Squamous Epithelial Cell Urine NONE SEEN #/LPF (NONE/RARE); WBC Urine >100 #/HPF (NONE SEEN)
[2023-03-15 14:31] LABS: Urine Culture Indicated YES
[2023-03-15] MEDS: 0.9 % SODIUM CHLORIDE 1,000 ML 1000 ML IV ×2 (14:37→15:17)
[2023-03-15] MEDS: PIPERACILLIN SODIUM/TAZOBACTAM 4.5 GM in 0.9 % SODIUM CHLORIDE 50 ML IV (14:50)
[2023-03-15 14:59] LABS: PCO2 VBG 28.7 mmHg (40.0-52.0)
[2023-03-15 15:04] LABS: Hemoglobin 13.9 g/dL (14.0-18.0); Mean Corpuscular HGB Conc 30.2 g/dL (29.9-35.2); Mean Corpuscular Hemoglobin 27.5 pg (25.9-34.0); Mean Corpuscular Volume 91.1 fL (80.0-94.0); Mean Platelet Volume 10.2 fL (9.5-13.5); Platelet Count 148 10^3/uL (150-450); Red Blood Count 5.05 10^6/uL (4.70-6.10); Red Cell Distribution Width 15.6 % (11.0-15.0); White Blood Count 19.2 10^3/uL (4.0-11.0)
[2023-03-15 15:09] LABS: Ammonia 29 umol/L (11-32)
[2023-03-15 15:13] LABS: Erythrocyte Sedimentation Rate 55 mm/hr (<=20)
[2023-03-15 15:15] LABS: Anion Gap 19.2; Band Neutrophils Absolute 3.5 10^3/uL (0.0-0.3); Segmented Neut Absolute Manual 13.82 10^3/uL (1.4-6.5)
[2023-03-15 15:16] LABS: Anisocytosis 1+; Lymphocytes Absolute Manual 0.96 10^3/uL (1.20-3.80); Monocytes Absolute Manual 0.96 10^3/uL (0.30-0.80)
[2023-03-15 15:17] LABS: Alanine Aminotransferase 50 U/L (16-63); Albumin Globulin Ratio 0.8; Alkaline Phosphatase 65 U/L (46-116); Aspartate Amino Transferase 169 U/L (15-37); BUN Creatinine Ratio 8.6; Bilirubin Total 0.7 mg/dL (0.2-1.0); Calcium 8.2 mg/dL (8.5-10.1); Carbon Dioxide 21.8 mmol/L (21.0-32.0); Chloride 105 mmol/L (98-107); Estimated GFR (African America 17 (>=60); Estimated GFR (Non-African Ame 14 (>=60); Globulin 3.8 g/dL; Glucose 61 mg/dL (74-106); Sodium 141 mmol/L (136-145); Total Protein 6.8 g/dL (6.4-8.2)
--- NOTE | 2023-03-15 15:20 | CT_ITS ---
The [address] [address] Patient Name: FEDE ARGUETA MRN: [id number] date: 1955 Sex: M Assigned Patient Location: ER Current Patient Location: ER Accession/Order Number: [id number] Exam Date: 03/15/2023 15:24 Report Date: 03/15/2023 15:45 At the request of: JOSH ZAZUETA Procedure: CT stroke head/brain wo con CT stroke head/brain wo con, 03/15/2023 3:24 PM EST INDICATION: AMS COMPARISON: No prior CT scan of the head available for comparison at the time of this dictation. TECHNIQUE: Axial CT images of the brain from skull base to vertex, including portions of the face and sinuses, were obtained without contrast. Multiplanar reformatted images were generated and reviewed as needed. FINDINGS: No intracranial mass, hydrocephalus, midline shift or acute hemorrhage. No extra-axial collection. Cano-white matter differentiation is preserved. The paranasal sinuses and mastoid air cells are clear. Orbits are within normal limits. No acute skull fracture. CT/CT stroke head/brain wo con IMPRESSION: No acute intracranial abnormality. Electronically authenticated by: CAROLYN HERRING Date: 03/15/2023 15:45
--- NOTE | 2023-03-15 15:20 | CT_ITS ---
[address] [address] Patient Name: FEDE ARGUETA MRN: [id number] date: 1955 Sex: M Assigned Patient Location: ER Current Patient Location: Accession/Order Number: [id number] Exam Date: 03/15/2023 15:24 Report Date: 03/15/2023 15:58 At the request of: JOSH ZAZUETA Procedure: CT abdomen pelvis wo con CT abdomen pelvis wo con, 03/15/2023 3:24 PM EST INDICATION: Sepsis, hx septic stone COMPARISON: Noncontrast CT of the abdomen and pelvis 09/18/2022 TECHNIQUE: Axial images of the abdomen and pelvis were obtained without IV contrast. Multiplanar reformatted images were generated and reviewed as needed. Dose reduction techniques were achieved by using automated exposure control and/or adjustment of mA and/or kV according to patient size and/or use of iterative reconstruction technique. FINDINGS: Images degraded by motion artifact. Mild dependent consolidation within the lower lobes bilaterally with trace right pleural fluid. Cholelithiasis. Probable liver, pancreas, spleen and adrenals grossly unremarkable on a noncontrast scan. No gross findings of hydronephrosis or nephrolithiasis. Dense intraluminal contents within a partially collapsed urinary bladder. Hernandez catheter in satisfactory position. Punctate calcifications adjacent to Hernandez catheter balloon at the base of the urinary bladder. Calcifications within an enlarged prostate gland. No aortic aneurysm. No bowel obstruction. No pneumatosis or pneumoperitoneum. No free fluid in the pelvis. Mild perirectal and presacral fat stranding. Large amounts of stool distending the rectosigmoid colon with circumferential rectal wall thickening. Prominent external iliac lymph nodes bilaterally, the largest a right external iliac lymph node 1.0 cm short axis. No acute fracture. Stable sclerotic foci within the pelvis. Radiopacities within the head of the left femur and left acetabular roof. CT/CT abdomen pelvis wo con IMPRESSION: 1. Fecal impaction of the rectosigmoid colon with stercoral colitis. 2. Mild retroperitoneal lymphadenopathy. 3. Small urinary bladder calculi. Dense intraluminal content within the urinary bladder may represent proteinaceous urine or blood products. No hydronephrosis or nephrolithiasis. 4. Cholelithiasis. 5. Bilateral lower lobe consolidation with trace right pleural effusion. Underlying infection cannot be excluded. 6. Prostatomegaly. Electronically authenticated by: CAROLYN HERRING Date: 03/15/2023 15:58
[2023-03-15 15:23] LABS: Lactate/Lactic Acid 5.3 mmol/L (0.4-2.0); Troponin I High Sensitivity 142.4 pg/mL (4.0-76.1)
[2023-03-15 15:31] LABS: C Reactive Protein 18.19 mg/dL (<=0.50)
[2023-03-15 15:32] LABS: PROCALCITONIN >200.00 ng/mL (0.00-0.50)
[2023-03-15] MEDS: VANCOMYCIN HCL 1,000 MG in 0.9 % SODIUM CHLORIDE 250 ML 250 MG IV (15:41)
[2023-03-15 16:14] LABS: INR 1.37; Prothrombin Time 14.3 sec (9.0-11.6)
--- NOTE | 2023-03-15 16:33 | PC.NURSE ---
Patient alert and answers questions appropriately. Family in room and patient interact with family.
[2023-03-15] MEDS: 0.9 % SODIUM CHLORIDE 500 ML IV (16:39)
--- NOTE | 2023-03-15 18:02 | XR_ITS ---
The [address] [address] Patient Name: FEDE ARGUETA MRN: [id number] date: 1955 Sex: M Assigned Patient Location: ER Current Patient Location: ED.MAIN Accession/Order Number: [id number] Exam Date: 03/15/2023 18:10 Report Date: 03/15/2023 18:56 At the request of: JOSH ZAZUETA Procedure: XR chest 1V EXAMINATION: XR chest 1V 03/15/2023 3:55 PM PST HISTORY: PICC placement TECHNIQUE: Single frontal view of the chest acquired. COMPARISONS: Chest x-ray 03/15/2023 at 3:29 PM. FINDINGS: Lines/tubes/other: Right-sided central venous catheter terminates at the superior cavoatrial junction. Heart and mediastinum: Stable. Bones: No acute osseous abnormality. Lungs: The lungs are clear. There is no evidence of pneumonia or pulmonary edema. Pleura: There is no significant pleural effusion or pneumothorax. Other: None. XR/XR chest 1V IMPRESSION: Central venous catheter appears appropriately positioned terminating near the superior cavoatrial junction. Electronically authenticated by: MINI SHELDON Date: 03/15/2023 18:56
[2023-03-15 18:12] LABS: Estimated GFR (African America 17 (>=60); Estimated GFR (Non-African Ame 14 (>=60)
[2023-03-15 18:13] LABS: Lactate/Lactic Acid 4.3 mmol/L (0.4-2.0); Troponin I High Sensitivity 135.5 pg/mL (4.0-76.1)
[2023-03-15] MEDS: 0.9 % SODIUM CHLORIDE 1,000 ML 250 ML IV (18:13)
[2023-03-15] MEDS: IMIPENEM/CILASTATIN SODIUM 1,000 MG in 0.9 % SODIUM CHLORIDE 100 ML 100 MG IV (18:43)
--- NOTE | 2023-03-15 20:41 | PC.NURSE ---
[facility] arrives at this time for transport.
== END 2023-03-15 20:45 | disposition short-term general hospital (02) ==
PROVIDERS: Physician Assistant; Emergency Provider Emergency Medicine
DX: A41.9 Sepsis, unspecified organism (principal); G82.50 Quadriplegia, unspecified; Z79.899 Other long term (current) drug therapy; R50.9 Fever, unspecified; N17.9 Acute kidney failure, unspecified; N39.0 Urinary tract infection, site not specified; K80.20 Calculus of gallbladder without cholecystitis without obstruction; K56.41 Fecal impaction; K52.9 Noninfective gastroenteritis and colitis, unspecified
CPT/HCPCS: 0202U; 36415; 36569; 70450; 71045; 74176; 80053; 81001; 82140; 82565; 82800; 83605; 84145; 84484; 85007; 85027; 85610; 85652; 86140; 87040; 87086; 87150; 87186; 93005; 96361; 96365; 96366; 96367; 96368; 99285; C1887; J3370

== ENCOUNTER 2023-04-15 01:24 | Emergency (ER) | payer MEDICARE, MEDICAID, SELFPAY ==
[2023-04-15] VITALS (35 sets, daily range): BP systolic 125–156; BP diastolic 72–97; PULSE 59–88; RESP 3–32; TEMP 36.4; O2SAT 91–100
--- NOTE | 2023-04-15 01:31 | XR_ITS ---
The [address] [address] Patient Name: FEDE ARGUETA MRN: [id number] date: 1955 Sex: M Assigned Patient Location: ER Current Patient Location: ER Accession/Order Number: [id number] Exam Date: 04/15/2023 01:50 Report Date: 04/15/2023 02:17 At the request of: DONNA BLAIR Procedure: XR chest 1V EXAM: XR chest 1V HISTORY: weak COMPARISON: Chest radiograph dated 03/15/2023. TECHNIQUE: One view of the chest was obtained. FINDINGS: The cardiac silhouette is normal in size. Aortic atherosclerotic disease is seen. The lungs are clear. There is no significant pneumothorax or pleural effusion. No acute osseous abnormality is seen. XR/XR chest 1V IMPRESSION: 1. No acute cardiopulmonary abnormality. Electronically authenticated by: Gaviota SALCIDO Date: 04/15/2023 02:17
--- NOTE | 2023-04-15 01:31 | ECG_ITS ---
[facility] Test Date: 2023-04-15 Pat Name: FEDE ARGUETA Department: Room: - Gender: Male [employer] Claim [employer]er: : [id number] Requested By: [id number] Order Number: [id number] Reading MD: CHRISTOPHER GONZALEZ Measurements Intervals [place] Rate: 59 P: -53180 HI: -93600 QRS: 26 QRSD: 74 T: 57 QT: 398 QTc: 397 Interpretive Statements Sinus bradycardia 9140 abnormal rhythm ECG Compared to ECG 03/15/2023 13:53:45 Sinus tachycardia no longer present Electronically Signed On 04-15-2023 7:30:33 EST by CHRISTOPHER GONZALEZ
[2023-04-15] MEDS: ONDANSETRON PF 4 MG/2 ML VIAL IV (01:43)
[2023-04-15 01:57] LABS: Bilirubin Urine NEGATIVE (NEGATIVE); Blood Urine TRACE-I (NEGATIVE); Clarity Urine CLEAR (CLEAR); Color Urine LT. YELLOW (YELLOW); Glucose Urine UA NEGATIVE (NEGATIVE); Ketones Urine NEGATIVE (NEGATIVE); Leukocyte Esterase Urine LARGE (NEGATIVE); Nitrite Urine NEGATIVE (NEGATIVE); Protein Urine NEGATIVE (NEG/TRACE); Urobilinogen Urine 0.2 EU/dL (0.2-1.0); pH Urine 6.5 (5.0-9.0)
[2023-04-15 01:57] LABS: Basophils Absolute Auto 0.1 10^3/uL (0.0-0.1); Basophils Percent Auto 0.7 % (0.2-2.0); Eosinophils Absolute Auto 0.4 10^3/uL (0.0-0.7); Eosinophils Percent Auto 4.4 % (0.9-7.0); Hemoglobin 12.4 g/dL (14.0-18.0); Immature Granulocytes Abs Auto 0.04 10^3/uL (0.00-0.03); Immature Granulocytes Pct Auto 0.5 % (0.0-0.5); Lymphocytes Absolute Auto 1.6 10^3/uL (1.2-3.8); Lymphocytes Percent Auto 19.4 % (20.5-60.0); Mean Corpuscular Hemoglobin 27.4 pg (25.9-34.0); Mean Corpuscular Volume 88.5 fL (80.0-94.0); Mean Platelet Volume 9.5 fL (9.5-13.5); Monocytes Absolute Auto 0.7 10^3/uL (0.3-0.8); Monocytes Percent Auto 7.9 % (1.7-12.0); Neutrophils Absolute Auto 5.6 10^3/uL (1.4-6.5); Neutrophils Percent Auto 67.1 % (43.0-75.0); Platelet Count 426 10^3/uL (150-450); Red Blood Count 4.52 10^6/uL (4.70-6.10); Red Cell Distribution Width 14.1 % (11.0-15.0); White Blood Count 8.4 10^3/uL (4.0-11.0)
[2023-04-15 02:03] LABS: Amorphous Sediment Urine MANY; Bacteria Urine LARGE #/HPF (NONE SEEN); Crystals Seen? Seen #/HPF (None Seen); Mucus Urine NONE SEEN (NONE SEEN); RBC Urine 0-2 #/HPF (0-2); Squamous Epithelial Cell Urine FEW #/LPF (NONE/RARE)
[2023-04-15 02:04] LABS: Cast Seen? NONE SEEN #/LPF (NONE SEEN)
[2023-04-15 02:11] LABS: Influenza Virus A Antigen Negative; Influenza Virus B Antigen Negative; Internal Control Within Normal Limits; SARS-CoV-2 Ag NEGATIVE (NEGATIVE)
[2023-04-15 02:14] LABS: Anion Gap 13.5; BUN Creatinine Ratio 8.2; Calcium 9.9 mg/dL (8.5-10.1); Carbon Dioxide 27.4 mmol/L (21.0-32.0); Chloride 109 mmol/L (98-107); Estimated GFR (African America >60 (>=60); Estimated GFR (Non-African Ame >60 (>=60); Glucose 123 mg/dL (74-106); Potassium 3.9 mmol/L (3.5-5.1); Sodium 146 mmol/L (136-145); Troponin I High Sensitivity 5.2 pg/mL (4.0-76.1)
--- OUTSIDE RECORDS SUMMARY | 2023-04-15 02:25 | XMS_ITS | CCD ---
Author Name Unknown Address [address] [place] [address] Organization [facility] Care Team Providers Care It Integration Architect Name Role Phone ERIN LUDWIG Admitting Unavailable ERIN LUDWIG Attending Unavailable AMNA MCGARRY Consulting Unavailable YOMAIRA EDUARDO Consulting Unavailable Unavailable Primary Care Provider UnavailAna Rm Unavailable NON STAFF Primary Care Provider UnavailMD Robbi Scott Attending Provider Pamela Hill Unavailable YAZMIN CHILEL Attending Unavailable Robbi Quezada V Referring Unavailable William STRICKLAND Attending Unavailable William STRICKLAND Attending Unavailable Ana Foley DO Primary Care Provider REQUEST, NONE LISTED Primary Care Unavaila ble DIAB ., JASSON Admitting Unavailable AUSTIN WHALEY Consulting Unavailable DIAB ., JASSON Attending Unavailable DIAB ., JASSON Consulting Unavailable REQUEST, NONE LISTED Primary Care Unavaila ble STRICKLAND ., DR THOMAS Consulting Unavailable STRICKLAND ., DR THOMAS Admitting Unavailable STRICKLAND ., DR THOMAS Attending Unavailable GELA, DR MINERVA Mondragon Consulting Unavailable ANUJA LEE Consulting Unavailable STRICKLAND ., DR THOMAS Attending Unavailable PAMELA HILL Primary Care Unavailable STRICKLAND ., DR THOMAS Admitting Unavailable MISC, DR PUENTES Attending Unavailable MISC, DR PUENTES Admitting Unavailable PAMELA HILL Primary Care Unavailable STRICKLAND ., DR THOMAS Attending Unavailable STRICKLAND ., DR THOMAS Admitting Unavailable REQUEST, NONE LISTED Primary Care Unavaila ble STRICKLAND ., DR THOMAS Admitting Unavailable STRICKLAND ., DR THOMAS Attending Unavailable RALEIGH, DR JACQUELINE Sparrow Consulting Unavailable REQUEST, NONE LISTED Primary Care Unavaila ble YAZMIN CHILEL Admitting Unavailable ALGHOTHOWEN, MOHAMAD Attending Unavailable ALGHOSYED, MOHAMAD Consulting Unavailable MISC, DOCTOR Admitting Unavailable MISC, DOCTOR Attending Unavailable MISC, DOCTOR Consulting Unavailable MISC, DOCTOR Admitting Unavailable HILLPAMELA VARMA Primary Care Unavailable MISC, DOCTOR Attending Unavailable MISC, DOCTOR Consulting Unavailable MISC, DOCTOR Admitting Unavailable REQUEST, DR NONE LISTED Primary Care Unavaila ble MISC, DOCTOR Attending Unavailable MISC, DOCTOR Attending Unavailable MISC, DOCTOR Admitting Unavailable ZIEBER, DR MINERVA Mondragon Consulting Unavailable LOCO ., BELINDA Admitting Unavailable LOCO ., BELINDA Attending Unavailable PAMELA HILL Primary Care Unavailable DONNA BLAIR Consulting Unavailable ANDERSON, JAVIER Consulting Unavailable LOCO ., BELINDA Consulting Unavailable JUDI Marino Attending Provider DO Amy Foleyria A Primary Care Provider [phone] DO Jun Gaona Emergency Provider JUDI Marino Attending Provider [phone] FoleyDO Ana A Primary Care Provider [phone] DO Jun Gaona Emergency Provider DO Christin Manzanares Emergency Provider MD Magdaleno Paige Admit Provider MD Magdaleno Paige Attending Provider MD Ray Betancourt Attending Provider [phone] [facility] DO Ana Veronica Primary Care Provider VICENTA, ANA VERONICA Primary Care Unavailable DUARTE, ERIKA Referring Unavailable FOLEY, ANA VERONICA Primary Care Unavailable DUARTE, ERIKA Referring Unavailable FOLEY, ANA VERONICA Primary Care Unavailable DUARTE, ERIKA Admitting Unavailable DUARTE, ERIKA Attending Unavailable DORI PELAYO Attending Unavailable CARLOS ALEXANDER Admitting Unavailable FOLEY, ANA VERONICA Primary Care Unavailable LOCO, BELINDA Referring Unavailable ABRAHAN ANDERSON Attending Unavailable ROGER BLAIR Referring Unavailable STEPH AGUILAR Admitting Unavailable FOLEY, ANA VERONICA Primary Care Unavailable FOLEY, ANA VERONICA Primary Care Unavailable DUARTE, ERIKA Referring Unavailable THALIA BOSCH Attending Unavailable FOLEY, ANA VERONICA Primary Care Unavailable DUARTE, ERIKA Referring Unavailable FOLEY, ANA VERONICA Primary Care Unavailable DUARTE, ERIKA Referring Unavailable DUARTE, ERIKA Attending Unavailable DUARTE, DAMEON Aggarwal Admitting Unavailable FOLEY, ANA VERONICA Primary Care Unavailable DUARTE, ERIKA Attending Unavailable FOLEY, ANA VERONICA Primary Care Unavailable DUARTE, ERIKA Referring Unavailable KORY BOOTH Referring Unavailable FOLEY, ANA VERONICA Primary Care Unavailable DUARTE, ERIKA Attending Unavailable FOLEY, ANA VERONICA Primary Care Unavailable DUARTE, ERIKA Referring Unavailable FOLEY, ANA VERONICA Primary Care Unavailable DUARTE, ERIKA Referring Unavailable DUARTE, ERIKA Attending Unavailable Foley, DO Ana A Primary Care Provider [phone] JUDI Marino Attending Provider DO William Carver Emergency Provider [phone] DORIS Alberto Emergency Provider DO Jim Arcos Admit Provider [phone] DO Jim Arcos Other Provider MD Zeinab Poole Attending Provider Foley, Ana A Primary Care Unavailable Jun Gaona Admitting Unavailable Jun Gaona Attending Unavailable Annabella Marino Admitting Unavailable Annabella Marino Attending Unavailable Foley, Ana A Primary Care Unavailable Annabella Marino Admitting Unavailable Annabella Marino Attending Unavailable Foley, Ana A Primary Care Unavailable Obermeyer Lavonne L Admitting Unavailable Obermeyer, Lavonne L Attending Unavailable Foley, Ana A Primary Care Unavailable Jim Arcos Admitting Unavailable Jim Arcos Consulting Unavailable Zeinab Poole Attending Unavailable Foley, Ana A Primary Care Unavailable Magdaleno Paige Admitting Unavailable Ray Betancourt Attending Unavailable Foley, Ana A Primary Care Unavailable Foley, Ana A Primary Care Unavailable River Alberto Admitting Unavailable River Alberto Attending Unavailable Foley, Ana A Primary Care Unavailable William Carver Admitting Unavailable William Carver Attending Unavailable Medications Current Medications Medication Drug Class(es) Dates Sig (Normalized) Sig (Original) acetaminophen 500 mg oral tablet (20 sources) Start: 08-13-2022 End: 09-12-2022 take 2 tablets by mouth every six hours as needed acetaminophen (TYLENOL) 500 mg tablet Take 2 tablets by ORAL/FEEDING TUBE route every 6 hours as needed for pain. 60 tablet 0 08/13/2022 09/12/2022 Active Start: 07-27-2022 take 2 tablets by mo uth every six hours as needed acetaminophen (TYLENOL) 500 mg tablet 2 tablets by ORAL/FEEDING TUBE route every 6 hours as needed for pain. 0 07/27/2022 Suspended Start: 09-23-2019 acetaminophen (TYLENOL) tablet 1,000 mg take 1 capsule by mo uth every six hours Acetaminophen 500 MG 1 capsule as needed Orally every 6 hrs PRN Not-Taking/PRN End: 07-27-2022 take 975 mg by mouth every eight hours acetaminophen (TYLENOL 8 HOUR ORAL) Take 975 mg by mouth every 8 hours. 0 07/27/2022 Discontinued take 975 mg by mouth every eight hours acetaminophen (TYLENOL 8 HOUR ORAL) Take 975 mg by mouth every 8 hours. 0 Suspended Comment on above: Take 975 mg by mouth every 8 hours. 2 tablets by ORAL/FE EDING TUBE route every 6 hours as needed for pain. Take 2 tablets by OR AL/FEEDING TUBE route every 6 hours as needed for pain. acetaminophen 325 mg / HYDROcodone bitartrate 5 mg oral tablet (4 sources) Opioid Agonist Start: 02-26-20 HYDROcodone-Acetam inophen 5-325 MG 1 tablet as needed for severe pain scale 8-10 Orally BID for 7 days Feb, Active albuterol 0.833 mg/ml / ipratropium bromide 0.167 mg/ml inhalant solution (1 source) Anticholinergic, beta2-Adrenergic Agonist Start: 09-25-19 ipratropium-albute rol (DUONEB) nebulizer solution 1 ampule amLODIPine 5 mg oral tablet (2 sources) Dihydropyridine Calcium Channel Roni Start: 03-22-20 take 5 mg by mouth once daily Amlodipine Active 5 MG PO Daily March 22, 2023 12:00am baclofen 10 mg oral tablet (20 sources) gamma-Aminobutyric Acid-ergic Agonist Start: 02-26-20 Baclofen 10 MG 1 tablet as needed Orally midday for 90 days Feb, Active Start: 02-06-2023 take 1 tablet by joaquin th every eight hours Baclofen 10 MG 1 tablet as needed Orally Three times a day for 90 days [facility] Jan, Active Start: 02-06-2023 End: 03-22-2023 Baclofen 20 MG 1 tablet as n eeded Orally in morning and evening for 90 days Jan, Active Start: 02-04-2023 End: 02-04-2023 take 20 mg by mouth three times daily Baclofen Discontinued 20 MG PO Three times daily February 04, 2023 12:00am February 04, 2023 11:18pm Start: 03-23-2020 take 20 mg by mouth three times daily Baclofen Active 20 MG PO Three times daily March 23, 2020 12:00am Start: 03-23-2020 take 10 mg by mouth three times daily Baclofen Active 10 MG PO Three times daily March 23, 2020 12:00am Start: 10-05-2019 End: 10-05-2019 baclofen (LIORESAL) tablet 1 0 mg Start: 10-03-2019 End: 10-06-2019 take 1 tablet by mouth three times daily baclofen 5 MG TABS Take 5 mg by mouth 3 times daily for 3 days 6 tablet 0 10/03/2019 10/06/2019 Start: 10-03-2019 End: 10-05-2019 baclofen (LIORESAL) tablet 5 mg Comment on above: Take 20 mg by mouth three times daily. bisacodyl 10 mg rectal suppository (20 sources) Stimulant Laxative Start: 01-25-2023 Dulcolax 10 MG 1 suppository as needed Rectal Once a day for 30 days Dec, Active Start: 09-24-2019 End: 07-27-2022 bisacodyl (DULCOLAX) [address] 1 suppository rectally daily 30 suppository 0 10/05/2019 11/04/2019 Active Comment on above: 10 mg [address] RECTAL rout e once daily. [address]AL [address] e once daily as needed. calcium carbonate 1250 mg oral tablet (20 sources) take 1 tablet by mouth every twelve hours Calcium 500 MG 1 tablet with meals Orally Twice a day Active take 1 tablet by mouth every twe lve hours Calcium 500 MG 1 tablet with meals Orally Twice a day Active ciprofloxacin 500 mg oral tablet (17 sources) Quinolone Antimicrobial Start: 10-27-2022 End: 01-25-2023 take 1 tablet by mouth twice daily ciprofloxacin HCl (CIPRO) 500 mg tablet Take 1 tablet by mouth twice daily. 6 tablet 0 10/27/2022 01/25/2023 Active Start: 03-23-2020 End: 09-30-2020 take 500 mg by mouth twice daily Ciprofloxacin Hcl Discontinued 500 MG PO Twice daily March 23, 2020 12:00am September 30, 2020 12:39pm Comment on above: Take 1 tablet by [facility] twice daily. docusate sodium 100 mg oral capsule (20 sources) Start: 08-13-2022 End: 09-12-2022 take 1 capsule by mouth three times daily docusate sodium (COLACE) 100 mg capsule Take 1 capsule by mouth three times daily. 90 capsule 0 08/13/2022 09/12/2022 Active Start: 10-03-2019 End: 10-07-2019 take 1 capsule by mouth once daily docusate sodium (COLACE, DULCOLAX) 100 MG CAPS Take 100 mg by mouth daily for 3 days 0 10/04/2019 10/07/2019 Start: 09-23-2019 End: 10-03-2019 docusate (COLACE) 50 MG/5ML liquid 100 mg take 15 mL by mouth once daily as needed Docusate Sodium 60 MG/15ML 15 ml as needed Orally Once a day Not-Taking/PRN take 15 mL by mouth once daily as needed Docusate Sodium 60 MG/15ML 15 ml as needed Orally Once a day Not-Taking take 1 capsule by [facility] three times daily docusate sodium (COLACE) 100 mg capsule Take 100 mg by mouth three times daily. 0 Suspended Comment on above: Take 100 mg by mouth three times daily. Take 1 capsule by mo [facility] three times daily. doxycycline hyclate 100 mg oral capsule (13 sources) Tetracycline-class Drug Start: 02-07-20 End: 03-22-20 take 1 capsule by mouth every twelve hours Doxycycline Hyclate 100 MG 1 capsule Orally Twice a day [facility] Jan, Active ertapenem 1000 mg injection (14 sources) Penem Antibacterial Start: 09-27-19 End: 10-10-19 ertapenem (INVANZ) 1 g in NaCl 0.9% 100 mL Inject 100 mL intravenously every 24 hours for 13 days. 1300 mL 0 09/26/2022 10/09/2022 Active Start: 07-28-2022 ertapenem (INV ANZ) 1 g in NaCl 0.9% 100 mL Inject 100 mL intravenously every 24 hours. 0 07/28/2022 Suspended Comment on above: Inject 100 mL intrav enously every 24 hours. Inject 100 mL intrav enously every 24 hours for 13 days. folic acid 1 mg oral tablet (14 sources) Start: 0 folic acid (FOLVITE) tablet 1 mg Comment on above: Take 1 mg by mouth o nce daily. gabapentin 300 mg oral capsule (20 sources) Anti-epileptic Agent Start: 3 End: 4 take 300 mg by mouth three times daily Gabapentin Active 300 MG PO Three times daily February 04, 2023 12:00am Start: 09-26-2022 End: 09-26-2023 take 1 capsule by mouth three times daily gabapentin (NEURONTIN) 300 mg capsule 1 capsule by ORAL/FEEDING TUBE route three times daily. 0 09/26/2022 09/26/2023 Active Start: 04-10-2020 take 1 capsule by mo ut every eight hours Gabapentin 400 MG 1 capsule Orally tid for 30 day(s) Mar, Not-Taking/PRN Start: 03-23-2020 End: 02-04-2023 take 400 mg by mouth three times daily Gabapentin Discontinued 400 MG PO Three times daily March 23, 2020 12:00am February 04, 2023 10:47am Start: 10-03-2019 take 2 capsules by m outh every eight hours gabapentin (NEURONTIN) 300 MG capsule Take 2 capsules by mouth every 8 hours for 3 days. 18 capsule 0 10/03/2019 Active Start: 09-28-2019 gabapentin (NE URONTIN) capsule 600 mg Start: 09-23-2019 End: 09-28-2019 take 300 mg by mouth every eight hours 300 mg, Oral, EVERY 8 HOURS, First dose on 09/23/19 at 0315 take 1 tablet by joaquin th every eight hours Gabapentin 600 MG 1 tablet Orally TID for 90 days Active gabapentin (NEUR ONTIN) 100 mg capsule Take 600 mg by mouth three times daily. 0 Suspended Comment on above: Take 600 mg by mouth three times daily. 1 capsule by ORAL/FE EDING TUBE route three times daily. ibuprofen 600 mg oral tablet (9 sources) Nonsteroidal Anti-inflammatory Drug Start: 10-04-2019 ibuprofen (ADVIL;MOTRIN) tablet 600 mg Start: 09-26-2019 End: 10-04-2019 ibuprofen (ADVIL;MOTRIN) tab let 400 mg Start: 09-14-2017 End: 01-26-2018 Ibuprofen Discontinued 600 M G PO every 6 to 8 hours September 13, 2017 11:00pm January 26, 2018 8:16am loratadine 10 mg oral tablet (20 sources) Start: 02-04-2023 take 10 mg by mouth once daily Loratadine Active 10 MG PO Daily February 04, 2023 12:00am melatonin 1 mg oral tablet (4 sources) Start: 10-03-2019 take 5 tablets by mouth once daily melatonin 1 MG tablet Take 5 tablets by mouth nightly for 3 days 15 tablet 0 10/03/2019 Active Start: 09-24-2019 melatonin tabl et 5 mg End: 07-27-2022 take 2 tablets by mouth once daily at bedtime melatonin 3 mg tablet Take 6 mg by mouth daily at bedtime. 0 07/27/2022 Discontinued Comment on above: Take 6 mg by mouth d aily at bedtime. polyethylene glycol 3350 00416 mg powder for oral solution (20 sources) Osmotic Laxative Start: 02-25-2023 MiraLax 17 GM/SCOOP 1 scoop mixed with 8 ounces of fluid Orally Once a day for 30 days Feb, Active Start: 02-14-2023 Polyethylene G lycol 3350 (Miralax) 17 gram powder in packet Active 17 GM PO Daily 04 06February 14, 2023 12:00am mix into 4-8 oz. of any hot/cold/room temp. beverage; use immediately Start: 09-26-2022 polyethylene g lycol 3350 17 gram packet 1 Packet by ORAL/FEEDING TUBE route once daily. Dissolve dose in 4 - 8 ounces of liquid and take as directed. 0 09/26/2022 Active Start: 09-26-2022 polyethylene g lycol 3350 17 gram packet 1 Packet by ORAL/FEEDING TUBE route once daily. Dissolve dose in 4 - 8 ounces of liquid and take as directed. 0 09/26/2022 Active Start: 03-23-2020 End: 02-04-2023 Polyethylene Glycol 3350 (Mi ralax) 17 gram/dose powder Discontinued 17 GM PO Twice daily 238 March 23, 2020 12:00am February 04, 2023 10:47am mix into 4-8 oz. of any hot/cold/room temp. beverage; use immediately Start: 09-23-2019 End: 10-07-2019 take 17 g by mouth once daily polyethylene glycol (GLY COLAX) 17 g packet Take 17 g by mouth daily for 3 days 3 each 0 10/04/2019 10/07/2019 Comment on above: 1 Packet by ORAL/FEE DING TUBE route once daily. Dissolve dose in 4 - 8 ounces of liquid and take as directed. Senna Leaves (6 sources) take 1 tablet by mouth twice daily as needed Senna 8.6 MG 1 tablet as needed Orally BID for 90 days Active take 1 tablet by joaquin th once daily at bedtime as needed Senna 8.6 MG 1 tablet at bedtime as needed Orally Once a day for 90 day(s) Active Sennosides (Senna) 8.6 mg Tablet (7 sources) Start: 03-23-2020 take 1 tablet by mouth once daily at bedtime Sennosides (Senna) 8.6 mg Tablet Active 8.6 MG PO Daily at bedtime March 23, 2020 1:00am Start: 03-23-2020 take 1 tablet by joaquin th once daily at bedtime Sennosides (Senna) 8.6 mg Tablet Active 8.6 MG PO Daily at bedtime March 23, 2020 12:00am sennosides, fdc 8.6 mg oral tablet (20 sources) take 1 tablet by joaquin th every twelve hours Senna 8.6 MG 1 tablet as needed Orally BID for 90 days Active Sennosides (ELIAS A) 8.6 mg cap Take 17.2 mg by mouth. 0 Active take 1 tablet by joaquin th every twenty-four hours Senna 8.6 MG 1 tablet at bedtime as need ed Orally Once a day for 90 day(s) Active Comment on above: Take 17.2 mg by mout h. 3 ml sodium chloride 9 mg/ml injection (3 sources) Start: 09-23-2019 10 mL, Intravenous, EVERY 12 HOURS SCHEDULED (2 times per day), First dose on 09/23/19 at 0900 Start: 09-23-2019 take 10 mL intraveno us route once as needed 10 mL, Intravenous, PRN, Line Care, After every IV line use, Starting 09/23/19 at 0249 Start: 09-23-2019 End: 09-24-2019 Intravenous, at 125 mL/hr, CONTINUOUS, Starting 09/23/19 at 0315 thiamine 100 mg oral tablet (15 sources) Start: 09-23-2019 take 1 tablet by mouth once daily vitamin B-1 100 MG tablet Take 1 tablet by mouth daily for 3 days 3 tablet 0 10/04/2019 Active Comment on above: Take 100 mg by mouth once daily. traMADol hydrochloride 50 mg oral tablet (4 sources) Opioid Agonist Start: 02-06-2023 take 50 mg by mouth every twelve hours Tramadol Active 50 MG PO Q12H 14 7 February 06, 2023 12:00am trospium chloride 20 mg oral tablet (20 sources) Cholinergic Muscarinic Antagonist Start: 02-04-2023 take 20 mg by mouth before breakfast Trospium Active 20 MG PO Before breakfast and supper February 04, 2023 12:00am Start: 08-13-2022 End: 09-12-2022 take 1 tablet by mouth twice daily before mealtime trospium (SANCTURA) 20 mg tablet Take 1 tablet by mouth twice daily before meals. 180 tablet 3 09/01/2022 Active Comment on above: Take 1 tablet by joaquin th twice daily before meals. Completed/Discontinued Medications Medication Drug Class(es) Dates Sig (Normalized) Sig (Original) aluminum hydroxide 80 mg/ml / magnesium hydroxide 80 mg/ml / simethicone 8 mg/ml oral suspension (20 sources) take 10 mL by mouth every four hours as needed aluminum & magnesium hydroxide-simethi cone (MAALOX PLUS EXTRA STRENGTH) 400-400-40 mg/5 mL suspension Take 10 mL by mouth every 4 hours as needed. 0 Active Comment on above: Take 10 mL by mouth every 4 hours as needed. amantadine hydrochloride 100 mg oral capsule (12 sources) Influenza A M2 Protein Inhibitor take 1 capsule by mouth twice daily amantadine HCl (SYMMETREL) 100 mg capsule Take 100 mg by mouth twice daily. 0 Active Comment on above: Take 100 mg by mouth twice daily. amoxicillin 875 mg / clavulanate 125 mg oral tablet (11 sources) Penicillin-class Antibacterial Start: 12-09-2022 take 1 tablet by mouth every twelve hours Amoxicillin-Pot Clavulanate 875-125 MG 1 tablet Orally every 12 hrs for 10 days Nov, Not-Taking Start: 09-25-2019 End: 10-02-2019 amoxicillin-clavulanate (AUG MENTIN) 875-125 MG per tablet 1 tablet Artificial Tears 0.1-0.3 % (20 sources) Artificial Tears 0.1-0.3 % as directed Ophthalmic PRN Not-Taking ascorbic acid 500 mg oral tablet (20 sources) Vitamin C Start: 07-15-2021 End: 02-04-2023 take 1 tablet by mouth once daily Ascorbic Acid (Vitamin C) (Vitamin C) 500 mg Tablet Discontinued 500 MG PO Daily July 14, 2021 11:00pm February 04, 2023 10:47am take 1 tablet by mouth twice priscilla ly Ascorbic Acid 500 MG 1 tablet Orally bid Active atorvastatin 10 mg oral tablet (7 sources) HMG-CoA Reductase Inhibitor Start: 07-15-2021 End: 02-04-2023 take 10 mg by mouth once daily Atorvastatin Discontinued 10 MG PO Daily July 14, 2021 11:00pm February 04, 2023 10:47am Calcium (7 sources) Phosphate Binder, Calcium Start: 03-23-2020 End: 02-04-2023 take 500 mg by mouth once daily Calcium Discontinued 500 MG PO Daily March 23, 2020 12:00am February 04, 2023 10:47am Start: 03-23-2020 take 500 mg by mouth once dayo y Calcium Active 500 MG PO Daily March 23, 2020 1:00am Start: 03-23-2020 take 500 mg by mouth once dayo y Calcium Active 500 MG PO Daily March 23, 2020 12:00am celecoxib 200 mg oral capsule (13 sources) Nonsteroidal Anti-inflammatory Drug take 1 capsule by mouth twice daily celecoxib (CELEBREX) 200 mg capsule Take 200 mg by mouth twice daily. 0 Suspended Comment on above: Take 200 mg by mouth twice daily. cephalexin 500 mg oral capsule (20 sources) Cephalosporin Antibacterial Start: 12-08-19 End: 02-01-20 take 500 mg by mouth every six hours Cephalexin Discontinued 500 MG PO Q6H 28 December 06, 2022 11:00pm January 31, 2023 8:10am Start: 09-14-2017 End: 09-19-2017 take 1 capsule by mouth three times daily Cephalexin (Keflex) 500 mg capsule Discontinued 500 MG PO Three times daily 15 5 September 13, 2017 11:00pm September 18, 2017 11:02pm space evenly during waking hours cholecalciferol 0.125 mg oral tablet (7 sources) Vitamin D Start: 03-23-2020 End: 02-04-2023 take 1 tablet by mouth once daily Cholecalciferol (Vitamin D3) (Vitamin D3) 125 mcg (5,000 unit) Tablet Discontinued 125 MCG PO Daily March 23, 2020 12:00am February 04, 2023 10:47am Commode Bedside - (20 sources) Start: 02-28-2020 Commode Bedsid e - as directed Feb, Not-Taking/PRN Start: 02-28-2020 Commode Bedsid e - as directed Feb, Not-Taking Start: 02-28-2020 dexamethasone 0.5 mg oral tablet (20 sources) Corticosteroid Start: 03-23-2020 End: 02-04-2023 take 0.5 mg by mouth once daily Dexamethasone Discontinued 0.5 MG PO Daily March 23, 2020 12:00am February 04, 2023 10:47am 100 ml dexmedetomidine 0.004 mg/ml injection (1 source) Central alpha-2 Adrenergic Agonist Start: 09-23-2019 End: 09-24-2019 dexmedetomidine (PRECEDEX) 400 mcg in sodium chloride 0.9 % 100 mL infusion dextran 70 1 mg/ml / hypromellose 3 mg/ml ophthalmic solution (1 source) Plasma Volume Embedded Systems Software Developer Artificial Tears 0.1-0.3 % as directed Ophthalmic PRN Not-Taking/PRN diclofenac potassium 50 mg oral tablet (20 sources) Nonsteroidal Anti-inflammatory Drug Start: 06-11-2022 End: 03-22-2023 take 50 mg by mouth twice daily Diclofenac Potassium Discontinued 50 MG PO Twice daily February 04, 2023 12:00am March 22, 2023 11:44am Diclofenac Sodiu m 1 % as directed Transdermal Not-Taking/PRN dronabinol 2.5 mg oral capsule (20 sources) Cannabinoid Start: 03-23-2020 End: 02-04-2023 take 1 capsule by mouth three times daily Dronabinol (Marinol) 2.5 mg Capsule Discontinued 2.5 MG PO Three times daily March 23, 2020 12:00am February 04, 2023 10:47am DULoxetine 30 mg delayed release oral capsule (20 sources) Serotonin and Norepinephrine Reuptake Inhibitor Start: 03-23-2020 End: 02-04-2023 take 30 mg by mouth once daily Duloxetine Discontinued 30 MG PO Daily March 23, 2020 12:00am February 04, 2023 10:47am 0.4 ml enoxaparin sodium 100 mg/ml prefilled syringe (20 sources) Low Molecular Weight Heparin Start: 10-13-2022 enoxaparin (LOVENOX) 40 mg/0.4 mL Inject 0.4 mL subcutaneously every 24 hours. Do not resume until 10/18 0 10/13/2022 Active Start: 10-03-2019 End: 10-06-2019 enoxaparin (LOVENOX) 30 MG/0 .3ML injection Inject 0.3 mLs into the skin 2 times daily for 3 days 0 10/03/2019 10/06/2019 Start: 09-25-2019 enoxaparin (LO VENOX) injection 30 mg Start: 09-23-2019 End: 09-24-2019 enoxaparin (LOVENOX) injecti on 30 mg Comment on above: Inject 40 mg subcuta neously every 24 hours. Inject 0.4 mL subcut aneously every 24 hours. Do not resume until 10/18 famotidine 20 mg oral tablet (15 sources) Histamine-2 Receptor Antagonist Start: 09-24-2019 End: 09-26-2019 famotidine (PEPCID) tablet 20 mg Start: 09-23-2019 End: 09-24-2019 famotidine (PEPCID) injectio n 20 mg Comment on above: Take 20 mg by mouth twice daily. 2 ml fentaNYL 0.05 mg/ml injection (4 sources) Opioid Agonist Start: 09-26-2019 End: 09-27-2019 fentaNYL (SUBLIMAZE) injection 50 mcg Start: 09-24-2019 End: 09-25-2019 fentaNYL (SUBLIMAZE) injecti on 25 mcg Start: 09-24-2019 End: 09-24-2019 fentaNYL (SUBLIMAZE) injecti on 100 mcg Start: 09-23-2019 End: 09-23-2019 fentaNYL (SUBLIMAZE) 100 MCG /2ML injection fentaNYL 20 mcg/mL Infusion (1 source) Start: 09-23-2019 End: 09-24-2019 fentaNYL 20 mcg/mL Infusion ferrous sulfate 325 mg oral tablet (20 sources) Start: 03-23-2020 End: 02-04-2023 take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 [facility] [address] [place] [address] [place] GFR/1.73 sq M.predicted MDRD (S/P/Bld) [Vol rate/Area] mL/min/{1.73_m2} Normal [facility] Comment on above: Performed By: #### S CAN CBC, BMP #### [facility] [address] Glucose [Mass/Vol] 97 mg/dL Normal 70-100 [facility] Comment on above: Result Comment: [place] Glucose Reference Range is dependent on time and content of last meal. Glucose of more than 200 mg/dL in a nonstressed, ambulatory subject supports the diagnosis of Diabetes Mellitus. ADA recommended reference range Performed By: #### S CAN CBC, BMP #### [facility] [address] Potassium [Moles/Vol] 3.9 mmol/L Normal 3.5-5.1 [facility] Comment on above: Performed By: #### S CAN CBC, BMP #### [facility] [address] [place] [address] [place] Sodium [Moles/Vol] 138 mmol/L Normal 136-145 [facility] Comment on above: Performed By: #### S CAN CBC, BMP #### [facility] [address] [place] [address] [place] Urea nitrogen [Mass/Vol] 29 mg/dL High 7-25 [facility] Comment on above: Performed By: #### S CAN CBC, BMP #### [facility] [address] [place] [address] [place] Calcium [Mass/volume] in Ser um or PlasmaOrdered By: Zeinab Poole on 03-20-2023 Calcium [Mass/Vol] 8.2 mg/dL 8.6-10.3 [facility] Carbon dioxide, total [Moles /volume] in Serum or PlasmaOrdered By: Zeinab Poole on 03-20-2023 CO2 [Moles/Vol] 25.6 mmol/L 21.0-31.0 [facility] Chloride [Moles/volume] in S jennifer or PlasmaOrdered By: Zeinab Poole on 03-20-2023 Chloride [Moles/Vol] 109 mmol/L 98-[address] [facility] Creatinine [Mass/volume] in Serum or PlasmaOrdered By: Zeinab Poole on 03-20-2023 Creatinine [Mass/Vol] 1.28 mg/dL 0.70-1.30 [facility] Glucose [Mass/volume] in Ser um or PlasmaOrdered By: Zeinab Poole on 03-20-2023 Glucose [Mass/Vol] 97 mg/dL 70-100 [facility] Comment on above: ADA recommended refe rence rangeRandom Glucose Reference Range is dependent on time and content of last meal. Glucose of more than 200 mg/dL in a nonstressed, ambulatory subject supports the diagnosis of Diabetes Mellitus. No Panel InformationOrdered By: Zeinab Poole on 03-20-2023 Estimated GFR (CKD-EPI) > 60.0 mL/Min [facility] Creatinine Clearance (Chem 55.23 [facility] Potassium [Moles/volume] in Serum or PlasmaOrdered By: Zeinab Poole on 03-20-2023 Potassium [Moles/Vol] 3.9 mmol/L 3.5-5.1 [facility] Serum or plasma anion gap de terminationOrdered By: Zeinab Poole on 03-20-2023 Anion gap [Moles/Vol] 7.3 mmol/L 6.0-15.0 [facility] Sodium [Moles/volume] in Ser um or PlasmaOrdered By: Zeinab Poole on 03-20-2023 Sodium [Moles/Vol] 138 mmol/L 136-145 [facility] Urea nitrogen [Mass/volume] in Serum or PlasmaOrdered By: Zeinab Poole on 03-20-2023 Urea nitrogen [Mass/Vol] 29 mg/dL 7-25 [facility] Anisocytosis LM Ql (Bld)Orde red By: Zeinab Poole on 03-19-2023 Anisocytosis Ql (Bld) Slight [facility] Band form neutrophils/100 WB C Manual cnt (Bld)Ordered By: Zeinab Poole on 03-19-2023 Band form neutrophils/100 WBC (Bld) 1 % 0-5 [facility] Basic Metabolic Panelon 12-2 Anion gap [Moles/Vol] 9.4 mmol/L Normal 6.0-15.0 [facility] Comment on above: Performed By: #### C MEENA ADDONUAPLUS #### [facility] [address] Calcium [Mass/Vol] 8.3 mg/dL Low 8.6-10.3 [facility] Comment on above: Performed By: #### C MEENA ADDONUAPLUS #### [facility] [address] Chloride [Moles/Vol] 112 mmol/L High 98-[address] [facility] Comment on above: Performed By: #### C MEENA ADDONUAPLUS #### [address] CO2 [Moles/Vol] 23.6 mmol/L Normal 21.0-31.0 [facility] Comment on above: Performed By: #### C MEENA ADDONUAPLUS #### [address] Creatinine [Mass/Vol] 1.48 mg/dL High 0.70-1.30 [facility] Comment on above: Performed By: #### C MEENA ADDONUAPLUS #### [place] [address] [place] Creatinine Clr Calc Pharmacy 47.77 [facility] Comment on above: Result Comment: PERF ORMED BY: [place] [address] PATHOLOGIST METAPHYSICIAN RENETTA MONACO M.D. Performed By: #### C UChelle ADDONUAPLUS #### [place] [address] [place] GFR/1.73 sq M.predicted MDRD (S/P/Bld) [Vol rate/Area] 51.215 mL/min/{1.73_m2} [facility] Comment on above: Performed By: #### C UChelle ADDONUAPLUS #### [facility] [address] [place] [address] Glucose [Mass/Vol] 84 mg/dL Normal 70-100 [facility] Comment on above: Result Comment: [place] Glucose Reference Range is dependent on time and content of last meal. Glucose of more than 200 mg/dL in a nonstressed, ambulatory subject supports the diagnosis of Diabetes Mellitus. ADA recommended reference range Performed By: #### C UU, ADDONUAPLUS #### [facility] [address] [place] [address] Potassium [Moles/Vol] 4.0 mmol/L Normal 3.5-5.1 [facility] Comment on above: Performed By: #### C UU, ADDONUAPLUS #### [address] Sodium [Moles/Vol] 141 mmol/L Normal 136-145 [facility] Comment on above: Performed By: #### C UU, ADDONUAPLUS #### [address] Urea nitrogen [Mass/Vol] 37 mg/dL High 7-25 [facility] Comment on above: Performed By: #### C UU, ADDONUAPLUS #### [address] Basophils Auto (Bld) [#/Vol] Ordered By: Zeinab Poole on 03-19-2023 Basophils (Bld) [#/Vol] N/A F [facility] Basophils/100 WBC Auto (Bld) Ordered By: Zeinab Poole on 03-19-2023 Basophils/100 WBC (Bld) N/A F [facility] Hayes cells [Presence] in Blo od by Light microscopyOrdered By: Zeinab Poole on 03-19-2023 Ney cells LM Ql (Bld) Slight Fi [facility] Diff and CBCon 03-19-2023 Anisocytosis Ql (Bld) Slight Normal [facility] Comment on above: Performed By: #### C UU, ADDONUAPLUS #### [address] [place] [address] [place] Band form neutrophils/100 WBC (Bld) 1 % Normal 0-5 [facility] Comment on above: Performed By: #### C UChelle ADDONUAPLUS #### [address] Crenated RBC Slight Normal [facility] Comment on above: Performed By: #### C UU ADDONUAPLUS #### [address] Eosinophils/100 WBC (Bld) 3 % Normal 1-3 [facility] Comment on above: Performed By: #### C UChelle ADDONUAPLUS #### [address] Erythrocyte distribution width (RBC) [Ratio] 15.5 % High 12.0-14.8 [facility] Comment on above: Performed By: #### C UChelle ADDONUAPLUS #### [address] Giant Platelet Tally 1 /100{WBC} Normal [facility] Comment on above: Performed By: #### C UChelle ADDONUAPLUS #### [address] Hematocrit (Bld) [Volume fraction] 31.0 % Low 38.8-50.0 [facility] Comment on above: Performed By: #### C UChelle ADDONUAPLUS #### [address] Hemoglobin (Bld) [Mass/Vol] 10.4 g/dL Low 13.0-17.0 [facility] Comment on above: Performed By: #### C UU ADDONUAPLUS #### [address] Large Platelets Slight Normal [facility] Comment on above: Result Comment: PERF ORMED BY: [place] [address] PATHOLOGIST METAPHYSICIAN JIANLAN SUN M.D. Performed By: #### C UU, ADDONUAPLUS #### [facility] [address] [place] [address] Lymphocytes/100 WBC (Bld) 14 % Low 18-42 [facility] Comment on above: Performed By: #### C UU, ADDONUAPLUS #### [facility] [address] [place] [address] Macrocytosis Slight Normal [facility] Comment on above: Performed By: #### C UU, ADDONUAPLUS #### [address] MCH (RBC) [Entitic mass] 27.9 pg Normal 27.5-35.2 [facility] Comment on above: Performed By: #### C UU, ADDONUAPLUS #### [address] MCV (RBC) [Entitic vol] 83.7 fL Normal 83.5-101 F [facility] Comment on above: Performed By: #### C UU, ADDONUAPLUS #### [address] Mean Corpuscular HGB Conc 33.4 g/dL Normal 32.5-35.6 [facility] Comment on above: Performed By: #### C UU, ADDONUAPLUS #### [address] Microcytosis Slight Normal [facility] Comment on above: Performed By: #### C UU, ADDONUAPLUS #### [address] Monocytes/100 WBC (Bld) 8 % Normal 2-11 F [facility] Comment on above: Performed By: #### C UU, ADDONUAPLUS #### [address] Ovalocytes Slight Normal [facility] Comment on above: Performed By: #### C UU, ADDONUAPLUS #### [address] Platelet Estimate Decreased Normal Normal [facility] Comment on above: Performed By: #### C UU, ADDONUAPLUS #### [facility] [address] [place] [address] Platelet mean volume (Bld) [Entitic vol] 8.6 fL Normal 6.6-10.1 [facility] Comment on above: Performed By: #### C UU, ADDONUAPLUS #### [facility] [address] [place] [address] Platelet Morphology Normal Normal Normal [facility] Comment on above: Performed By: #### C UU, ADDONUAPLUS #### [address] Platelets (Bld) [#/Vol] 101 10*3/uL Low 150-450 [facility] Comment on above: Performed By: #### C UU, ADDONUAPLUS #### [address] Poikilocytosis Slight Normal [facility] Comment on above: Performed By: #### C UU, ADDONUAPLUS #### [address] RBC (Bld) [#/Vol] 3.71 10*6/uL Low 3.90-5.60 [facility] Comment on above: Performed By: #### C UU, ADDONUAPLUS #### [facility] [address] [place] [address] Segmented neutrophils/100 WBC (Bld) 74 % High 50-70 [facility] Comment on above: Performed By: #### C UU, ADDONUAPLUS #### [facility] [address] [place] [address] Target Cells Slight Normal [facility] Comment on above: Performed By: #### C UU, ADDONUAPLUS #### [address] WBC (Bld) [#/Vol] 9.4 10*3/uL Normal 4.1-10.5 [facility] Comment on above: Performed By: #### C UU, DORIAN #### [facility] [address] Eosinophils Auto (Bld) [#/Vo l]Ordered By: Zeinab Poole on 03-19-2023 Eosinophils (Bld) [#/Vol] N/A [facility] Eosinophils/100 WBC Auto (Bl d)Ordered By: Zeinab Poole on 03-19-2023 Eosinophils/100 WBC (Bld) N/A [facility] Eosinophils/100 WBC Manual c nt (Bld)Ordered By: Zeinab Poole on 03-19-2023 Eosinophils/100 WBC (Bld) 3 % 1-3 [facility] Erythrocyte distribution wid th Auto (RBC) [Ratio]Ordered By: Zeinab Poole on 03-19-2023 Erythrocyte distribution width (RBC) [Ratio] 15.5 % 12.0-14.8 [facility] Giant platelets/100 leukocyt es [Ratio] in Blood by Manual countOrdered By: Zeinab Poole on 03-19-2023 Giant platelets/100 WBC Manual cnt (Bld) [Ratio] 1 /100{WBC} [facility] Hematocrit Auto (Bld) [Volum e fraction]Ordered By: Zeinab Poole on 03-19-2023 Hematocrit (Bld) [Volume fraction] 31.0 % 38.8-50.0 [facility] Hemoglobin [Mass/volume] in BloodOrdered By: Zeinab Poole on 03-19-2023 Hemoglobin (Bld) [Mass/Vol] 10.4 g/dL 13.0-17.0 [facility] Leukocytes [#/volume] correc mayte for nucleated erythrocytes in Blood by Automated counOrdered By: Zeinab Poole on 03-19-2023 WBC corrected for nucl RBC Auto (Bld) [#/Vol] 9.4 10*3/uL 4.1-10.5 [facility] Lymphocytes Auto (Bld) [#/Vo l]Ordered By: Zeinab Poole on 03-19-2023 Lymphocytes (Bld) [#/Vol] N/A [facility] Lymphocytes/100 WBC Auto (Bl d)Ordered By: Zeinab Stephense on 03-19-2023 Lymphocytes/100 WBC (Bld) N/A [facility] Lymphocytes/100 WBC Manual c nt (Bld)Ordered By: Zeinab Stephense on 03-19-2023 Lymphocytes/100 WBC (Bld) 14 % 18-42 [facility] MCH Auto (RBC) [Entitic mass ]Ordered By: Zeinab Poole on 03-19-2023 MCH (RBC) [Entitic mass] 27.9 pg 27.5-35.2 [facility] MCHC Auto (RBC) [Mass/Vol]Or dered By: Zeinab Poole on 03-19-2023 MCHC (RBC) [Mass/Vol] 33.4 g/dL 32.5-35.6 [facility] MCV Auto (RBC) [Entitic vol] Ordered By: Zeinab Poole on 03-19-2023 MCV (RBC) [Entitic vol] 83.7 fL 83.5-101 F [facility] Macrocytes LM Ql (Bld)Ordere d By: Zeinab Poole on 03-19-2023 Macrocytes Ql (Bld) Slight [facility] Microcytes LM Ql (Bld)Ordere d By: Zeinab Stephense on 03-19-2023 Microcytes Ql (Bld) Slight [facility] Monocytes Auto (Bld) [#/Vol] Ordered By: Zeinab Poole on 03-19-2023 Monocytes (Bld) [#/Vol] N/A F [facility] Monocytes/100 WBC Auto (Bld) Ordered By: Zeinab Stephense on 03-19-2023 Monocytes/100 WBC (Bld) N/A F [facility] Monocytes/100 WBC Manual cnt (Bld)Ordered By: Zeinab Stephense on 03-19-2023 Monocytes/100 WBC (Bld) 8 % 2-11 [facility] Neutrophils Auto (Bld) [#/Vo l]Ordered By: Zeinab Poole on 03-19-2023 Neutrophils (Bld) [#/Vol] N/A [facility] Neutrophils/100 WBC Auto (Bl d)Ordered By: Zeinab Poole on 03-19-2023 Neutrophils/100 WBC (Bld) N/A [facility] Nucleated erythrocytes [Pres ence] in Blood by Automated countOrdered By: Zeinab Poole on 03-19-2023 Nucleated RBC Auto Ql (Bld) N/A [facility] Ovalocyte detectionOrdered B y: Zeinab Poole on 03-19-2023 Ovalocytes LM Ql (Bld) Slight [facility] Platelet adequacy [Presence] in Blood by Light microscopyOrdered By: Zeinab Poole on 03-19-2023 Platelets LM Ql (Bld) Decreased Normal [facility] Platelet mean volume Auto (B ld) [Entitic vol]Ordered By: Zeinab Poole on 03-19-2023 Platelet mean volume (Bld) [Entitic vol] 8.6 fL 6.6-10.1 [facility] Platelet morphology finding [Identifier] in BloodOrdered By: Zeinab Poole on 03-19-2023 Platelet morphology finding Nom (Bld) Normal Normal [facility] Platelets Auto (Bld) [#/Vol] Ordered By: Zeinab Poole on 03-19-2023 Platelets (Bld) [#/Vol] 101 10*3/uL 150-450 [facility] Platelets Large [Presence] i n Blood by Light microscopyOrdered By: Zeinab Poole on 03-19-2023 Platelets Large LM Ql (Bld) Slight [facility] Poikilocytosis [Presence] in Blood by Light microscopyOrdered By: Zeinab Poole on 03-19-2023 Poikilocytosis LM Ql (Bld) Slight [facility] RBC Auto (Bld) [#/Vol]Ordere d By: Zeinab Poole on 03-19-2023 RBC (Bld) [#/Vol] 3.71 10*6/uL 3.90-5.60 [facility] RBC morphologyOrdered By: Casper Poole on 03-19-2023 RBC morphology finding Nom (Bld) N/A [facility] Segmented neutrophils/100 WB C Manual cnt (Bld)Ordered By: Zeinab Poole on 03-19-2023 Segmented neutrophils/100 WBC (Bld) 74 % 50-70 [facility] Target cellsOrdered By: Zeinab Poole on 03-19-2023 Target cells LM Ql (Bld) Slight [facility] WBC Auto (Bld) [#/Vol]Ordere d By: Zeinab Poole on 03-19-2023 WBC (Bld) [#/Vol] 9.4 10*3/uL 4.1-10.5 [facility] XR abdomen min 2Von 03-19-20 XR abdomen min 2V [facility] [place] [address] XRay Report Signed Patient: Fede Guerra SR MR#: [id number] : 1955 Acct:[id number] Age/Sex: 68 / M ADM Date: 03/15/23 Loc: Room: [address] [place] [address] Type: ADM IN Attending Dr: Zeinab Poole MD Copies to: Zeinab Poole MD Ordering Provider: Zeinab Poole MD Date of Service: 03/19/23 XR/XR abdomen min 2V: abd pain constipation PORTABLE ACUTE ABDOMEN SERIES - 2 views COMPARISON: CT 03/15/2023 CLINICAL DATA: Constipation and abdominal pain. Supine and upright views of the abdomen and pelvis were obtained. Patient refused to remove his left arm out of the way. There are also several overlying chest lead wires. This limits evaluation. There is some air and stool within the colon. There appears to be significant decrease in rectal stool since the comparison. There is no obvious distended small bowel. No definite free air or air-fluid levels are present in the field of view on the upright view. There is mild degenerative change at the spine and hips. XR/XR abdomen min 2V IMPRESSION: NO OBVIOUS ACUTE PLAIN FILM FINDINGS WITHIN LIMITS OF OVERLYING ARTIFACTS. Impression dictated by: Christie Durán M.D.03/19/2023 3:41 PM Dictation Location: [place] [address] Transcribed By: CLIFFORD 03/19/23 1541 Dictated By: Christie Durán MD 03/19/23 1538 Signed By: 03/19/23 1541 [facility] Basic Metabolic Panelon 02-26 Anion gap [Moles/Vol] 8.5 mmol/L Normal 6.0-15.0 [facility] Comment on above: Performed By: #### S CAN CBC, BMP #### [facility] [address] Calcium [Mass/Vol] 8.1 mg/dL Low 8.6-10.3 [facility] Comment on above: Performed By: #### S CAN CBC, BMP #### [facility] [address] Chloride [Moles/Vol] 114 mmol/L High 98-[address] [facility] Comment on above: Performed By: #### S CAN CBC, BMP #### [facility] [address] CO2 [Moles/Vol] 22.7 mmol/L Normal 21.0-31.0 [facility] Comment on above: Performed By: #### S CAN CBC, BMP #### [facility] [address] [place] [address] [place] Creatinine [Mass/Vol] 1.86 mg/dL Significan t change up 0.70-1.30 [facility] Comment on above: Performed By: #### S CAN CBC, BMP #### [facility] [address] [place] [address] [place] Creatinine Clr Calc Pharmacy 38.01 [facility] Comment on above: Result Comment: PERF ORMED BY: [place] [address] PATHOLOGIST METAPHYSICIAN RENETTA MONACO M.D. Performed By: #### S CAN CBC, BMP #### [facility] [address] [place] [address] [place] GFR/1.73 sq M.predicted MDRD (S/P/Bld) [Vol rate/Area] 38.931 mL/min/{1.73_m2} Normal [facility] Comment on above: Performed By: #### S CAN CBC, BMP #### [facility] [address] Glucose [Mass/Vol] 82 mg/dL Normal 70-100 [facility] Comment on above: Result Comment: [place] Glucose Reference Range is dependent on time and content of last meal. Glucose of more than 200 mg/dL in a nonstressed, ambulatory subject supports the diagnosis of Diabetes Mellitus. ADA recommended reference range Performed By: #### S CAN CBC, BMP #### [facility] [address] Potassium [Moles/Vol] 4.2 mmol/L Normal 3.5-5.1 [facility] Comment on above: Performed By: #### S CAN CBC, BMP #### [facility] [address] [place] [address] Sodium [Moles/Vol] 141 mmol/L Normal 136-145 [facility] Comment on above: Performed By: #### S CAN CBC, BMP #### [facility] [address] [place] [address] Urea nitrogen [Mass/Vol] 47 mg/dL High 7-25 [facility] Comment on above: Performed By: #### S CAN CBC, BMP #### [facility] [address] [place] [address] Dohle bodies detectionOrdere d By: Zeinab Poole on 03-18-2023 Dohle body LM Ql (Bld) Slight [facility] Scan and CBCon 03-18-2023 Anisocytosis Ql (Bld) Slight Normal [facility] Comment on above: Performed By: #### S CAN CBC, BMP #### [facility] [address] [place] [address] [place] Basophils (Bld) [#/Vol] 0.1 10*3/uL Normal 0.0-0.2 [facility] Comment on above: Performed By: #### S CAN CBC, BMP #### [place] [address] [place] Basophils/100 WBC (Bld) 0.5 % Normal . F [facility] Comment on above: Performed By: #### S CAN CBC, BMP #### [facility] [address] [place] [address] [place] Dohle Bodies Slight Normal [facility] Comment on above: Performed By: #### S CAN CBC, BMP #### [facility] [address] Eosinophils (Bld) [#/Vol] 0.2 10*3/uL Normal 0.0-0.45 [facility] Comment on above: Performed By: #### S CAN CBC, BMP #### [facility] [address] Eosinophils/100 WBC (Bld) 1.4 % Normal . [facility] Comment on above: Performed By: #### S CAN CBC, BMP #### [facility] [address] [place] [address] Erythrocyte distribution width (RBC) [Ratio] 15.6 % High 12.0-14.8 [facility] Comment on above: Performed By: #### S CAN CBC, BMP #### [facility] [address] [place] [address] Hematocrit (Bld) [Volume fraction] 30.9 % Low 38.8-50.0 [facility] Comment on above: Performed By: #### S CAN CBC, BMP #### [facility] [address] [place] [address] Hemoglobin (Bld) [Mass/Vol] 10.1 g/dL Low 13.0-17.0 [facility] Comment on above: Performed By: #### S CAN CBC, BMP #### [facility] [address] Lymphocytes (Bld) [#/Vol] 1.1 10*3/uL Normal 1.00-4.8 [facility] Comment on above: Performed By: #### S CAN CBC, BMP #### [facility] [address] [place] [address] [place] Lymphocytes/100 WBC (Bld) 6.4 % Normal . [facility] [facility] Comment on above: Performed By: #### S CAN CBC, BMP #### [facility] [address] MCH (RBC) [Entitic mass] 27.6 pg Normal 27.5-35.2 [facility] Comment on above: Performed By: #### S CAN CBC, BMP #### [facility] [address] MCV (RBC) [Entitic vol] 84.3 fL Normal 83.5-101 F [facility] Comment on above: Performed By: #### S CAN CBC, BMP #### [facility] [address] [place] [address] Mean Corpuscular HGB Conc 32.7 g/dL Normal 32.5-35.6 [facility] Comment on above: Performed By: #### S CAN CBC, BMP #### [facility] [address] [place] [address] Microcytosis Slight Normal [facility] Comment on above: Performed By: #### S CAN CBC, BMP #### [facility] [address] [place] [address] [place] Monocytes (Bld) [#/Vol] 0.7 10*3/uL Normal 0.0-0.8 [facility] Comment on above: Performed By: #### S CAN CBC, BMP #### [facility] [address] [place] [address] Monocytes/100 WBC (Bld) 4.2 % Normal . F [facility] Comment on above: Performed By: #### S CAN CBC, BMP #### [facility] [address] [place] [address] [place] Neutrophils (Bld) [#/Vol] 14.6 10*3/uL High 1.8-7.7 [facility] Comment on above: Performed By: #### S CAN CBC, BMP #### [facility] [address] [place] [address] Neutrophils/100 WBC (Bld) 87.5 % Normal . [facility] Comment on above: Performed By: #### S CAN CBC, BMP #### [facility] [address] [place] [address] NRBC% 0.1 /100{WBC} Normal 0-0.5 [facility] Comment on above: Performed By: #### S CAN CBC, BMP #### [address] Platelet Estimate Decreased Normal Normal [facility] Comment on above: Performed By: #### S CAN CBC, BMP #### [facility] [address] [place] [address] Platelet mean volume (Bld) [Entitic vol] 8.9 fL Normal 6.6-10.1 [facility] Comment on above: Performed By: #### S CAN CBC, BMP #### [address] Platelet Morphology Normal Normal Normal [facility] Comment on above: Result Comment: PERF ORMED BY: [place] [address] PATHOLOGIST METAPHYSICIAN RENETTA MONACO M.D. Performed By: #### S CAN CBC, BMP #### [address] Platelets (Bld) [#/Vol] 105 10*3/uL Low 150-450 [facility] Comment on above: Performed By: #### S CAN CBC, BMP #### [facility] [address] [place] [address] RBC (Bld) [#/Vol] 3.66 10*6/uL Low 3.90-5.60 [facility] Comment on above: Performed By: #### S CAN CBC, BMP #### [facility] [address] [place] [address] WBC (Bld) [#/Vol] 16.6 10*3/uL High 4.1-10.5 [facility] Comment on above: Performed By: #### S CAN CBC, BMP #### [address] Basic Metabolic Panelon 12-2 Anion gap [Moles/Vol] 10.4 mmol/L Normal 6.0-15.0 [facility] Comment on above: Performed By: #### C UU, ADDONUAPLUS #### [facility] [address] Calcium [Mass/Vol] 7.9 mg/dL Low 8.6-10.3 [facility] Comment on above: Performed By: #### C UU, ADDONUAPLUS #### [facility] [address] Chloride [Moles/Vol] 114 mmol/L High 98-[address] [facility] Comment on above: Performed By: #### C UU, ADDONUAPLUS #### [address] CO2 [Moles/Vol] 21.0 mmol/L Normal 21.0-31.0 [facility] Comment on above: Performed By: #### C UU, ADDONUAPLUS #### [facility] [address] Creatinine [Mass/Vol] 2.41 mg/dL Significan t change up 0.70-1.30 [facility] Comment on above: Performed By: #### C UU, ADDONUAPLUS #### [facility] [address] [place] [address] Creatinine Clr Calc Pharmacy 29.34 [facility] Comment on above: Result Comment: PERF ORMED BY: [place] [address] PATHOLOGIST METAPHYSICIAN RENETTA MONACO M.D. Performed By: #### C UU, ADDONUAPLUS #### [facility] [address] [place] [address] GFR/1.73 sq M.predicted MDRD (S/P/Bld) [Vol rate/Area] 28.529 mL/min/{1.73_m2} [facility] Comment on above: Performed By: #### C UU, ADDONUAPLUS #### [facility] [address] Glucose [Mass/Vol] 71 mg/dL Normal 70-100 [facility] Comment on above: Result Comment: [place] Glucose Reference Range is dependent on time and content of last meal. Glucose of more than 200 mg/dL in a nonstressed, ambulatory subject supports the diagnosis of Diabetes Mellitus. ADA recommended reference range Performed By: #### C UChelle, ADDONUAPLUS #### [facility] [address] [place] [address] Potassium [Moles/Vol] 4.4 mmol/L Normal 3.5-5.1 [facility] Comment on above: Performed By: #### C UChelle ADDONUAPLUS #### [address] Sodium [Moles/Vol] 141 mmol/L Normal 136-145 [facility] Comment on above: Performed By: #### C UChelle ADDONUAPLUS #### [address] Urea nitrogen [Mass/Vol] 48 mg/dL High 7-25 [facility] Comment on above: Performed By: #### C UChelle ADDONUAPLUS #### [address] Scan and CBCon 03-17-2023 Anisocytosis Ql (Bld) Slight Normal [facility] Comment on above: Performed By: #### C UU ADDONUAPLUS #### [facility] [address] [place] [address] [place] Basophils (Bld) [#/Vol] 0.1 10*3/uL Normal 0.0-0.2 [facility] Comment on above: Performed By: #### C UU ADDONUAPLUS #### [facility] [address] [place] [address] [place] Basophils/100 WBC (Bld) 0.7 % Normal . F [facility] Comment on above: Performed By: #### C UU, ADDONUAPLUS #### [facility] [address] [place] [address] [place] Dohle Bodies Moderate Normal [facility] Comment on above: Performed By: #### C UU ADDONUAPLUS #### [address] Eosinophils (Bld) [#/Vol] 0.3 10*3/uL Normal 0.0-0.45 [facility] Comment on above: Performed By: #### C UU, ADDONUAPLUS #### [address] Eosinophils/100 WBC (Bld) 1.5 % Normal . [facility] Comment on above: Performed By: #### C UU ADDONUAPLUS #### [address] Erythrocyte distribution width (RBC) [Ratio] 16.0 % High 12.0-14.8 [facility] Comment on above: Performed By: #### C UChelle ADDONUAPLUS #### [address] Hematocrit (Bld) [Volume fraction] 30.0 % Low 38.8-50.0 [facility] Comment on above: Performed By: #### C UChelle, ADDONUAPLUS #### [address] Hemoglobin (Bld) [Mass/Vol] 9.9 g/dL Low 13.0-17.0 [facility] Comment on above: Performed By: #### C UU, ADDONUAPLUS #### [place] [address] [place] Lymphocytes (Bld) [#/Vol] 1.1 10*3/uL Normal 1.00-4.8 [facility] Comment on above: Performed By: #### C UU, ADDONUAPLUS #### [address] Lymphocytes/100 WBC (Bld) 6.0 % Normal . [facility] Comment on above: Performed By: #### C UU, ADDONUAPLUS #### [facility] [address] MCH (RBC) [Entitic mass] 28.0 pg Normal 27.5-35.2 [facility] Comment on above: Performed By: #### C UU, ADDONUAPLUS #### [facility] [address] MCV (RBC) [Entitic vol] 84.7 fL Normal 83.5-101 F [facility] Comment on above: Performed By: #### C UU, ADDONUAPLUS #### [facility] [address] Mean Corpuscular HGB Conc 33.1 g/dL Normal 32.5-35.6 [facility] Comment on above: Performed By: #### C UU, ADDONUAPLUS #### [facility] [address] Microcytosis Slight Normal [facility] Comment on above: Performed By: #### C UU, ADDONUAPLUS #### [facility] [address] [place] [address] [place] Monocytes (Bld) [#/Vol] 1.0 10*3/uL High 0.0-0.8 [facility] Comment on above: Performed By: #### C UU, ADDONUAPLUS #### [facility] [address] [place] [address] [place] Monocytes/100 WBC (Bld) 5.3 % Normal . [facility] Comment on above: Performed By: #### C UU, ADDONUAPLUS #### [facility] [address] [place] [address] [place] Neutrophils (Bld) [#/Vol] 15.8 10*3/uL High 1.8-7.7 [facility] Comment on above: Performed By: #### C UU, ADDONUAPLUS #### [facility] [address] [place] [address] [place] Neutrophils/100 WBC (Bld) 86.5 % Normal . [facility] Comment on above: Performed By: #### C UU, ADDONUAPLUS #### [facility] [address] [place] [address] NRBC% 0.0 /100{WBC} Normal 0-0.5 [facility] Comment on above: Performed By: #### C UU, ADDONUAPLUS #### [facility] [address] [place] [address] Platelet Estimate Decreased Normal Normal [facility] Comment on above: Performed By: #### C UU, ADDONUAPLUS #### [address] Platelet mean volume (Bld) [Entitic vol] 8.9 fL Normal 6.6-10.1 [facility] Comment on above: Performed By: #### C UU, ADDONUAPLUS #### [address] Platelet Morphology Normal Normal Normal [facility] Comment on above: Result Comment: PERF ORMED BY: [place] [address] PATHOLOGIST METAPHYSICIAN RENETTA MONACO M.D. Performed By: #### C UU, ADDONUAPLUS #### [address] Platelets (Bld) [#/Vol] 105 10*3/uL Low 150-450 [facility] Comment on above: Performed By: #### C UU, ADDONUAPLUS #### [address] RBC (Bld) [#/Vol] 3.54 10*6/uL Low 3.90-5.60 [facility] Comment on above: Performed By: #### C UU, ADDONUAPLUS #### [address] Toxic Vacuolation Moderate Normal [facility] Comment on above: Performed By: #### C UU, ADDONUAPLUS #### [address] [place] [address] [place] WBC (Bld) [#/Vol] 18.3 10*3/uL High 4.1-10.5 [facility] Comment on above: Performed By: #### C GUSTAVO ROBLEDOONUAPLUS #### [facility] [address] [place] [address] Toxic leukocyte vacuolation detectionOrdered By: Zeinab Poole on 03-17-2023 Leukocyte toxic vacuoles LM Ql (Bld) Moderate [facility] Alanine aminotransferase [En zymatic activity/volume] in Serum or PlasmaOrdered By: Gilbert Lockwood on 2023 ALT [Catalytic activity/Vol] 76 U/L 7-52 [facility] Albumin [Mass/volume] in Ser um or Plasma by Bromocresol green (BCG) dye binding methoOrdered By: Gilbert Lockwood on 2023 Albumin BCG dye [Mass/Vol] 3.1 g/dL 3.5-5.7 [facility] Alkaline phosphatase [Enzyma tic activity/volume] in Serum or PlasmaOrdered By: Gilbert Lockwood on 2023 ALP [Catalytic activity/Vol] 49 U/L 34-104 [facility] Aspartate aminotransferase [ Enzymatic activity/volume] in Serum or PlasmaOrdered By: Gilbert Lockwood on 2023 AST [Catalytic activity/Vol] 209 U/L 13-39 [facility] Bilirubin.total [Mass/volume ] in Serum or PlasmaOrdered By: Gilbert Lockwood on 2023 Bilirubin [Mass/Vol] 0.9 mg/dL 0.3-1.[address] [facility] Blood toxic granulation dete ction by light microscopyOrdered By: Gilbert Lockwood on 2023 Toxic granules LM Ql (Bld) Slight [facility] Comprehensive Metabolic Pane kimberly 2023 Albumin [Mass/Vol] 3.1 g/dL Low 3.5-5.7 [facility] Comment on above: Performed By: #### C MEENA ADDONUAPLUS #### [facility] [address] [place] [address] Albumin/Globulin [Mass ratio] 1.2 {ratio} Normal [facility] Comment on above: Performed By: #### C UU, ADDONUAPLUS #### [facility] [address] ALP [Catalytic activity/Vol] 49 U/L Normal 34-104 [facility] Comment on above: Performed By: #### C UU, ADDONUAPLUS #### [facility] [address] [place] [address] [place] ALT [Catalytic activity/Vol] 76 U/L High 7-52 [facility] Comment on above: Performed By: #### C UU, ADDONUAPLUS #### [facility] [address] Anion gap [Moles/Vol] 10.8 mmol/L Normal 6.0-15.0 [facility] Comment on above: Performed By: #### C UU, ADDONUAPLUS #### [facility] [address] AST [Catalytic activity/Vol] 209 U/L High 13-39 [facility] Comment on above: Performed By: #### C UU, ADDONUAPLUS #### [facility] [address] Bilirubin [Mass/Vol] 0.9 mg/dL Normal 0.3-1.[address] [facility] Comment on above: Performed By: #### C UU, ADDONUAPLUS #### [facility] [address] Calcium [Mass/Vol] 7.7 mg/dL Low 8.6-10.3 [facility] Comment on above: Performed By: #### C UU, ADDONUAPLUS #### [facility] [address] [place] [address] [place] Chloride [Moles/Vol] 113 mmol/L High 98-[address] [facility] Comment on above: Performed By: #### C UU, ADDONUAPLUS #### [facility] [address] [place] [address] [place] CO2 [Moles/Vol] 20.8 mmol/L Low 21.0-31.0 [facility] Comment on above: Performed By: #### C UU, ADDONUAPLUS #### [facility] [address] Creatinine [Mass/Vol] 3.56 mg/dL High 0.70-1.30 [facility] Comment on above: Performed By: #### C UU, ADDONUAPLUS #### [facility] [address] [place] [address] [place] Creatinine Clr Calc Pharmacy 19.86 Normal [facility] Comment on above: Result Comment: PERF ORMED BY: [place] [address] PATHOLOGIST METAPHYSICIAN RENETTA MONACO M.D. Performed By: #### C UU, ADDONUAPLUS #### [address] GFR/1.73 sq M.predicted MDRD (S/P/Bld) [Vol rate/Area] 17.864 mL/min/{1.73_m2} [facility] Comment on above: Performed By: #### C UU, ADDONUAPLUS #### [address] Globulin (S) [Mass/Vol] 2.5 g/dL Normal [facility] Comment on above: Performed By: #### C UU, ADDONUAPLUS #### [address] Glucose [Mass/Vol] 70 mg/dL Normal 70-100 [facility] Comment on above: Result Comment: [place] Glucose Reference Range is dependent on time and content of last meal. Glucose of more than 200 mg/dL in a nonstressed, ambulatory subject supports the diagnosis of Diabetes Mellitus. ADA recommended reference range Performed By: #### C UU, ADDONUAPLUS #### [facility] [address] Potassium [Moles/Vol] 4.6 mmol/L Normal 3.5-5.1 [facility] Comment on above: Performed By: #### C UU, ADDONUAPLUS #### [facility] [address] Protein [Mass/Vol] 5.6 g/dL Low 6.4-8.9 [facility] Comment on above: Performed By: #### C UU, ADDONUAPLUS #### [facility] [address] Sodium [Moles/Vol] 140 mmol/L Normal 136-145 [facility] Comment on above: Performed By: #### C UU, ADDONUAPLUS #### [facility] [address] Urea nitrogen [Mass/Vol] 42 mg/dL High 7-25 [facility] Comment on above: Performed By: #### C UU, ADDONUAPLUS #### [facility] [address] Creatinine [Mass/volume] in UrineOrdered By: Jim Arcos on 2023 Creatinine (U) [Mass/Vol] 109.0 mg/dL 14.0-26.0 [facility] Creatinine, Urine (Random)on 2023 Creatinine, Urine (Random) 109.0 mg/dL High 14.0-26.0 [facility] Comment on above: Performed By: #### C BC, BMP #### [facility] [address] [place] [address] [place] Diff and CBCon 2023 Band form neutrophils/100 WBC (Bld) 24 % High 0-5 [facility] Comment on above: Performed By: #### C UU, ADDONUAPLUS #### [facility] [address] [place] [address] [place] Dohle Bodies Slight Normal [facility] Comment on above: Performed By: #### C UU, ADDONUAPLUS #### [facility] [address] Erythrocyte distribution width (RBC) [Ratio] 15.4 % High 12.0-14.8 [facility] Comment on above: Performed By: #### C UU, ADDONUAPLUS #### [address] Hematocrit (Bld) [Volume fraction] 34.0 % Low 38.8-50.0 [facility] Comment on above: Performed By: #### C UU, ADDONUAPLUS #### [address] Hemoglobin (Bld) [Mass/Vol] 11.2 g/dL Low 13.0-17.0 [facility] Comment on above: Performed By: #### C UU, ADDONUAPLUS #### [address] Lymphocytes/100 WBC (Bld) 6 % Low 18-42 [facility] Comment on above: Performed By: #### C UU, ADDONUAPLUS #### [address] MCH (RBC) [Entitic mass] 27.6 pg Normal 27.5-35.2 [facility] Comment on above: Performed By: #### C UU, ADDONUAPLUS #### [address] MCV (RBC) [Entitic vol] 84.2 fL Normal 83.5-101 F [facility] Comment on above: Performed By: #### C UU, ADDONUAPLUS #### [address] Mean Corpuscular HGB Conc 32.8 g/dL Normal 32.5-35.6 [facility] Comment on above: Performed By: #### C UU, ADDONUAPLUS #### [address] Metamyelocytes 5 % High 0-0 [facility] Comment on above: Performed By: #### C UU, ADDONUAPLUS #### [address] Monocytes/100 WBC (Bld) 5 % Normal 2-11 F [facility] Comment on above: Performed By: #### C UU, ADDONUAPLUS #### [facility] [address] [place] [address] Platelet Estimate Decreased Normal Normal [facility] Comment on above: Performed By: #### C UU, ADDONUAPLUS #### [facility] [address] [place] [address] Platelet mean volume (Bld) [Entitic vol] 8.2 fL Normal 6.6-10.1 [facility] Comment on above: Performed By: #### C UU, ADDONUAPLUS #### [address] Platelet Morphology Normal Normal Normal [facility] Comment on above: Result Comment: PERF ORMED BY: [place] [address] PATHOLOGIST METAPHYSICIAN RENETTA MONACO M.D. Performed By: #### C UU, ADDONUAPLUS #### [address] Platelets (Bld) [#/Vol] 121 10*3/uL Low 150-450 [facility] Comment on above: Performed By: #### C UU, ADDONUAPLUS #### [address] RBC (Bld) [#/Vol] 4.04 10*6/uL Normal 3.90-5.60 [facility] Comment on above: Performed By: #### C UU, ADDONUAPLUS #### [address] RBC morphology finding Nom (Bld) Normal Normal Normal [facility] Comment on above: Performed By: #### C UU, ADDONUAPLUS #### [address] Segmented neutrophils/100 WBC (Bld) 62 % Normal 50-70 [facility] Comment on above: Performed By: #### C UU, ADDONUAPLUS #### [address] [place] [address] [place] Toxic Granulation Slight Normal [facility] Comment on above: Performed By: #### C UU, ADDONUAPLUS #### [facility] [address] Toxic Vacuolation Slight Normal [facility] Comment on above: Performed By: #### C UU, ADDONUAPLUS #### [facility] [address] WBC (Bld) [#/Vol] 17.9 10*3/uL High 4.1-10.5 [facility] Comment on above: Performed By: #### C UU, ADDONUAPLUS #### [facility] [address] ECH echo transthoracicon ECH echo transthoracic [facility] [place] [address] [place] [address] Echocardiogram Signed Patient: Fede Guerra SR MR#: [id number] : 1955 Acct:[id number] Age/Sex: 68 / M ADM Date: 03/15/23 Loc: Room: [address] [place] [address] Type: ADM IN Attending Dr: Zeinab Poole MD Ordering Provider: Jim Arcos DO Date of Service: 03/16/23 ECH/ECH echo transthoracic: elevated troponin Copies to: DO Donis Grande MD Height: 69 in Weight: 162 lb Performed By: PRASHANT Chaudhry BSA: 1.9 m2 BP: 92/70 mmHg HR: 120 Reason For Study: elevated troponin History: Hypotension Quadriplegia Interpretation Summary Mild concentric left ventricular hypertrophy. Ejection Fraction = 60-65%. A variety of Doppler measurements indicate normal left ventricular diastolic function. Procedure/Quality: A two-dimensional transthoracic echocardiogram with color flow and Doppler was performed. The study was technically suboptimal in quality due to poor acoustic windows . Left Ventricle: The left ventricular size is normal. Mild concentric left ventricular hypertrophy. Ejection Fraction = 60-65%. A variety of Doppler measurements indicate normal left ventricular diastolic function. No left ventricular thrombus or mass is seen. Left Atrium: The left atrium appears normal in size. The atrial septum appears normal. Right Atrium: The right atrium appears normal in size. Right Ventricle: The right ventricular size, thickness and function are normal. Aortic Valve: The aortic valve is normal in structure and function. Mitral Valve: The mitral valve is normal. Tricuspid Valve: The tricuspid valve is normal in structure and function. Pulmonic Valve: The pulmonic valve is not well visualized. Arteries: The aortic root is normal size. The aortic arch was visualized and no abnormalities were seen. Pericardium/Pleura: No pericardial effusion seen. There is no pleural effusion. IVC/Hepatic Viens: The inferior vena cava is normal in size, with a normal collapsibility index. Measurements with Normals IVSd: 1.1 cm (0.7-1.1 cm)LVIDd: 4.4 cm (3.7-5.4 cm) LVPWd: 1.2 cm (0.7-1.1 cm)LVIDs: 2.7 cm (2.3-3.6 cm) LA dimension: 3.0 cm(2.3-4.0 cm)Ao root diam: 3.3 cm(2.0-3.6 cm) Doppler with Normals MV E max mary: 66.4 cm/sec(0.8-1.3m/s) MV A max mary: 36.8 cm/sec(0.0-0.0m/s) MV E/A: 1.8 (<1.5) MMode/2D Measurements Calculations TAPSE: 3.5 cm FS: 38.1 % Ao root area: LVOT diam: RV S Mary: EDV(Teich): 86.8 ml 8.8 cm2 2.2 cm 21.2 cm/sec ESV(Teich): 27.3 ml LVOT area: EF(Teich): 68.5 % 3.7 cm2 __ LAV(MOD-sp4): 33.6 ml LA A2 area: 11.0 cm2 LAV(MOD-sp2): LA A4 area: 14.0 cm2 26.2 ml LA length (vol): 4.3 cm LA vol: 30.3 ml LA vol index: 16.0 ml/m2 Doppler Measurements Calculations MV dec time: E/E' lat: MV dec slope: RAP systole: 0.28 sec 4.7 237.2 cm/sec2 3.0 mmHg E/E' med: 4.3 Transcribed By: ISABELLA Performed At: 03/16/23 1012 Signed By: Donis England MD 03/16/23 1702 Normal [facility] Eosinophil,Urineon 3 Eosinophil,Urine 2 % High 0-1 [facility] Comment on above: Result Comment: PERF ORMED BY: [place] [address] PATHOLOGIST METAPHYSICIAN RENETTA MONACO M.D. Performed By: #### C BC, BMP #### [address] Eosinophils detection in uri ne sediment by Black stainOrdered By: Jim Arcos on 2023 Eosinophils Black stain Ql (Urine sed) 2 % 0-1 [facility] Globulin Calc (S) [Mass/Vol] Ordered By: Gilbert Lockwood on 2023 Globulin (S) [Mass/Vol] 2.5 g/dL F [facility] Lactate [Moles/volume] in Se rum or PlasmaOrdered By: Gilbert Lockwood on 2023 Lactate [Moles/Vol] 1.3 mmol/L 0.5-2.2 [facility] Lactic Acidon 2023 Lactate [Moles/Vol] 1.3 mmol/L Normal 0.5-2.2 [facility] Comment on above: Result Comment: PERF ORMED BY: [place] [id number] PATHOLOGIST METAPHYSICIAN RENETTA MONACO M.D. Performed By: #### C UU, ADDONUAPLUS #### [facility] [address] [place] [address] [place] Lactate [Moles/Vol] 1.8 mmol/L Normal 0.5-2.2 [facility] Comment on above: Result Comment: PERF ORMED BY: [place] [address] PATHOLOGIST METAPHYSICIAN RENETTA MONACO M.D. Performed By: #### C UU, ADDONUAPLUS #### [place] [address] [place] Metamyelocytes/100 WBC Manua l cnt (Bld)Ordered By: Gilbert Lockwood on 2023 Metamyelocytes/100 WBC (Bld) 5 % 0-0 [facility] Potassiumon 2023 Potassium [Moles/Vol] 4.7 mmol/L Normal 3.5-5.1 [facility] Comment on above: Result Comment: PERF ORMED BY: [place] [address] PATHOLOGIST METAPHYSICIAN RENETTA MONACO M.D. Performed By: #### C PETEY, BMP #### [place] [id number] [place] Potassium [Moles/volume] in UrineOrdered By: Jim Arcos on 2023 Potassium (U) [Moles/Vol] 39.7 mmol/L [facility] Comment on above: No reference range e stablished Potassium, Urine (Random)on 2023 Potassium, Urine (Random) 39.7 mmol/L Normal [facility] Comment on above: Result Comment: No r eference range established PERFORMED BY: [place] [address] PATHOLOGIST METAPHYSICIAN RENETTA MONACO M.D. Performed By: #### C PETEY, BMP #### [facility] [address] [place] [address] [place] Protein [Mass/volume] in Ser um or PlasmaOrdered By: Gilbert Lockwood on 2023 Protein [Mass/Vol] 5.6 g/dL 6.4-8.9 [facility] Protein [Mass/volume] in Uri neOrdered By: Jim Arcos on 2023 Protein (U) [Mass/Vol] 103 mg/dL 0-9 [facility] Serum or plasma albumin/glob ulin mass ratioOrdered By: Gilbert Lockwood on 2023 Albumin/Globulin [Mass ratio] 1.2 {ratio} [facility] Sodium [Moles/volume] in Uri neOrdered By: Jim Arcos on 2023 Sodium (U) [Moles/Vol] 67 mmol/L [facility] Comment on above: No reference range e stablished Sodium, Urine (Random)on Sodium (U) [Moles/Vol] 67 mmol/L Normal [facility] Comment on above: Result Comment: No r eference range established Performed By: #### C BC, BMP #### [place] [address] [place] Total Protein, Urineon 03-16 Protein (U) [Mass/Vol] 103 mg/dL High 0-9 [facility] Comment on above: Performed By: #### C BC, BMP #### [place] [address] [place] Troponin I High Sensitivityo n 2023 Troponin I High Sensitivity 93.2 pg/mL Off scale high 0.0-20.0 [facility] Comment on above: Result Comment: Crit ical Result : Called to and read back by: STEFANIE KENDALL at: 2023 06:27:35 by:ZOLTAN PERFORMED BY: [place] [address] PATHOLOGIST METAPHYSICIAN RENETTA MONACO M.D. Performed By: #### C UU, ADDONUAPLUS #### [place] [address] [place] Troponin I High Sensitivity 123.7 pg/mL Off scale high 0.0-20.0 [facility] Comment on above: Order Comment: MEENAKSHI Aggarwal AGAIN @0320, NO ANSWER Result Comment: Crit ical Result : Called to and read back by: MIGUEL KENDALL at: 2023 03:27:22 by:LORENZO PERFORMED BY: [place] [address] PATHOLOGIST METAPHYSICIAN RENETTA MONACO M.D. Performed By: #### C MEENA, DORIAN #### [address] Troponin I.cardiac [Mass/vol ume] in Serum or Plasma by Detection limit <= 0.01 ng/Ordered By: Gilbert Lockwood on 2023 Troponin I.cardiac DL <= 0.01 ng/mL [Mass/Vol] 93.2 pg/mL 0.0-20.0 [facility] Comment on above: Critical Result : Ca lled to and read back by: STEFANIE KENDALL at: 2023 06:27:35 by:ZOLTAN US renal BIon 2023 US renal BI [facility] Main [place] [address] [place] [address] Ultrasound Report Signed Patient: Fede Guerra SR MR#: [id number] : 1955 Acct:[id number] Age/Sex: 68 / M ADM Date: 03/15/23 Loc: Room: [address] [place] [address] Type: ADM IN Attending Dr: Zeinab Poole MD Ordering Provider: Jim Arcos DO Date of Service: 03/16/23 US/US renal BI: ANTOINE Copies to: MD Jim Gan DO BILATERAL RENAL AND BLADDER ULTRASOUND CLINICAL HISTORY: Acute kidney injury. Quadriplegia. COMPARISON: None The right kidney is better seen than the left. Estimation of renal size is approximately 12.9 cm on the right and 10.6 cm on the left. No shadowing calculi or hydronephrosis are identified. No renal mass lesions were imaged. There is no perinephric fluid. There is incidental cholelithiasis and sludge. The urinary bladder contains a Hernandez catheter and is not distended for assessment. US/US renal BI IMPRESSION: NO OBSTRUCTIVE UROPATHY. INCIDENTAL CHOLELITHIASIS AND SLUDGE. Impression dictated by: Christie Durán M.D.03/16/2023 9:49 AM Dictation Location: [place] [address] Tech: Leah Foreman Transcribed By: CLIFFORD [id number] Dictated By: Christie Durán MD [id number] Signed By: 03/16/23948 Normal [facility] Automated erythrocytes count in urine sediment (number/area)Ordered By: River Alberto on 03-14-2023 RBC Auto (Urine sed) [#/Area] 5-9 [HPF] 0-4 [facility] Automated leukocytes count i n urine sediment (number/area)Ordered By: River Alberto on 03-14-2023 WBC Auto (Urine sed) [#/Area] Innumerable [HPF] 0-4 [facility] Bilirubin Test strip Ql (U)O rdered By: River Alberto on 03-14-2023 Bilirubin Ql (U) Negative Negative [facility] Color Auto (U)Ordered By: Moo Alberto on 03-14-2023 Color (U) Yellow Yellow [facility] Dipstick and Microscopicon 1 05-15-2022 Appearance (U) Turbid Critically abnormal Clear [facility] Comment on above: Order Comment: Name Collection Type:: Hernandez Catheter Performed By: #### C UU, ADDONUAPLUS #### [facility] [address] [place] [address] [place] Bacteria,Urine 4+ High None Seen [facility] Comment on above: Order Comment: Name Collection Type:: Hernandez Catheter Performed By: #### C UU, ADDONUAPLUS #### [facility] [address] [place] [id number] [place] Bilirubin,Urine Negative Normal Negative [facility] Comment on above: Order Comment: Name Collection Type:: Hernandez Catheter Performed By: #### C UU, ADDONUAPLUS #### [facility] [address] [place] [id number] [place] Color (U) Yellow Normal Yellow [facility] Comment on above: Order Comment: Name Collection Type:: Hernandez Catheter Performed By: #### C UU, ADDONUAPLUS #### [facility] [address] [place] [address] Glucose Ql (U) Normal Normal Normal [facility] Comment on above: Order Comment: Name Collection Type:: Hernandez Catheter Performed By: #### C UU, ADDONUAPLUS #### [facility] [address] [place] [address] [place] Hyaline Casts,Urine None Seen Normal 0-8 [facility] Comment on above: Order Comment: Name Collection Type:: Hernandez Catheter Performed By: #### C UU, ADDONUAPLUS #### [address] Ketones Ql (U) Negative Normal Negative [facility] Comment on above: Order Comment: Name Collection Type:: Hernandez Catheter Performed By: #### C UU, ADDONUAPLUS #### [address] Leukocyte esterase Test strip Ql (U) 4+ High Negative [facility] Comment on above: Order Comment: Name Collection Type:: Hernandez Catheter Performed By: #### C UU, ADDONUAPLUS #### [place] [address] [place] Nitrite,Urine Negative Normal Negative [facility] Comment on above: Order Comment: Name Collection Type:: Hernandez Catheter Performed By: #### C UU, ADDONUAPLUS #### [facility] [address] [place] [address] [place] Occult Blood,Urine 3+ High Negative [facility] Comment on above: Order Comment: Name Collection Type:: Hernandez Catheter Result Comment: PERF ORMED BY: [place] [address] PATHOLOGIST METAPHYSICIAN RENETTA MONACO M.D. Performed By: #### C UU, ADDONUAPLUS #### [facility] [address] [place] [address] [place] pH (U) 6.0 [pH] Normal 5.0-9.0 [facility] Comment on above: Order Comment: Name Collection Type:: Hernandez Catheter Performed By: #### C UU, ADDONUAPLUS #### [facility] [address] [place] [address] Protein (U) [Mass/Vol] 30 mg/dL High Negative [facility] Comment on above: Order Comment: Name Collection Type:: Hernandez Catheter Performed By: #### C UU, ADDONUAPLUS #### [facility] [address] [place] [address] RBC,Urine 5-9 High 0-4 [facility] Comment on above: Order Comment: Name Collection Type:: Hernandez Catheter Performed By: #### C UU, ADDONUAPLUS #### [facility] [address] [place] [address] Specificy [place],Urine 1.009 Normal 1.001-1.030 [facility] Comment on above: Order Comment: Name Collection Type:: Hernandez Catheter Performed By: #### C UU, ADDONUAPLUS #### [facility] [address] [place] [address] Squamous Epithelial Cell,Urine None Seen Normal 0-2 [facility] Comment on above: Order Comment: Name Collection Type:: Hernandez Catheter Performed By: #### C UU, ADDONUAPLUS #### [facility] [address] [place] [address] Urobilinogen,Urine Normal Normal Normal [facility] Comment on above: Order Comment: Name Collection Type:: Hernandez Catheter Performed By: #### C UU, ADDONUAPLUS #### [facility] [address] [place] [address] [place] WBC,Urine Innumerable High 0-4 [facility] Comment on above: Order Comment: Name Collection Type:: Hernandez Catheter Performed By: #### C UU, ADDONUAPLUS #### [facility] [address] [place] [address] Yeast,Urine None Seen Normal None Seen [facility] Comment on above: Order Comment: Name Collection Type:: Hernandez Catheter Result Comment: PERF ORMED BY: [place] [address] PATHOLOGIST METAPHYSICIAN RENETTA MONACO M.D. Performed By: #### C UU, DORIAN #### [address] Ketones Auto test strip (U) [Mass/Vol]Ordered By: River Alberto on 03-14-2023 Ketones (U) [Mass/Vol] Negative Negative [facility] - UrinalysisOrder ed By: River Alberto on 03-14-2023 Hyaline casts LM Ql (Urine sed) None seen [LPF] 0-8 [facility] Nitrite Test strip Ql (U)Ord ered By: River Alberto on 03-14-2023 Nitrite Ql (U) Negative Negative [facility] Protein Auto test strip (U) [Mass/Vol]Ordered By: River Alberto on 03-14-2023 Protein (U) [Mass/Vol] 30 mg/dL Negative [facility] Specific gravity Auto test s trip (U) [Rel density]Ordered By: River Alberto on 03-14-2023 Specific gravity (U) [Rel density] 1.009 1.001-1.030 [facility] Squamous epithelial cells de tection in urine sediment by light microscopyOrdered By: River Alberto on 03-14-2023 Epithelial cells.squamous LM Ql (Urine sed) None seen [HPF] 0-2 [facility] Urine Cultureon 03-14-2023 Bacteria identified Cx Nom (U) ORGANISM: Enterococcus faecalis (O:ENTFAC) [place] Count >100,000 ORGANISM: Klebsiella pneumoniae (ESBL) (O:KLEPNEESBL) [place] Count >100,000 ORGANISM: Acinetobacter crystal/nosocom grp (O:ACIBAUNOS) [place] Count 50,000 Organism Comments MULTIDRUG RESISTANT ORGANISM * This is a corrected result. * A prior result that was reported as final has been changed. Isolate #2 changed from Klebsiella pneumoniae to Klebsiella pneumoniae ESBL Aerobic SCOTT Charge (PCMIC38) ----- SUSCEPTIBILITY ---- ORGANISM: O:ENTFA ANTIBIOTIC INTERPRETATION SCOTT Ampicillin R >8 Ciprofloxacin R >2 Daptomycin S 4 Levofloxacin R >4 Linezolid I 4 Nitrofurantoin S <32 Tetracycline R >8 Vancomycin S 1 Aerobic SCOTT Charge (NMIC56) ----- SUSCEPTIBILITY ---- ORGANISM: O:KERRI ANTIBIOTIC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 [#/Vol] 260 10*3/uL 150-450 [facility] Potassium [Moles/volume] in Serum or PlasmaOrdered By: William Carver on 02-14-2023 Potassium [Moles/Vol] 3.7 mmol/L 3.5-5.1 [facility] Protein Auto test strip (U) [Mass/Vol]Ordered By: William Carver on 02-14-2023 Protein (U) [Mass/Vol] 300 mg/dL Negative [facility] Protein [Mass/volume] in Ser um or PlasmaOrdered By: William Carver on 02-14-2023 Protein [Mass/Vol] 6.9 g/dL 6.4-8.9 [facility] RBC Auto (Bld) [#/Vol]Ordere d By: William Carver on 02-14-2023 RBC (Bld) [#/Vol] 4.50 10*6/uL 3.90-5.60 [facility] Serum or plasma albumin/glob ulin mass ratioOrdered By: William Carver on 02-14-2023 Albumin/Globulin [Mass ratio] 1.3 {ratio} [facility] Serum or plasma anion gap de terminationOrdered By: William Carver on 02-14-2023 Anion gap [Moles/Vol] 7.9 mmol/L 6.0-15.0 [facility] Serum or plasma non-glucuron idated bilirubin measurement (mass/volume)Ordered By: William Carver on 02-14-2023 Bilirubin.indirect [Mass/Vol] 0.5 mg/dL [facility] Sodium [Moles/volume] in Ser um or PlasmaOrdered By: William Carver on 02-14-2023 Sodium [Moles/Vol] 140 mmol/L 136-145 [facility] Specific gravity Auto test s trip (U) [Rel density]Ordered By: William Carver on 02-14-2023 Specific gravity (U) [Rel density] 1.017 1.001-1.030 [facility] Squamous epithelial cells de tection in urine sediment by light microscopyOrdered By: William Carver on 02-14-2023 Epithelial cells.squamous LM Ql (Urine sed) 0-1 [HPF] 0-2 [facility] Urea nitrogen [Mass/volume] in Serum or PlasmaOrdered By: William Carver on 02-14-2023 Urea nitrogen [Mass/Vol] 9 mg/dL 7-25 [facility] Urine Cultureon 02-14-2023 Bacteria identified Cx Nom (U) ORGANISM: Acinetobacter crystal/nosocom grp (O:ACIBAUNOS) [place] Count 15,000 Aerobic SCOTT Charge (NMIC56) ----- SUSCEPTIBILITY ---- ORGANISM: O:ACIBAFRANCINE ANTIBIOTIC INTERPRETATION SCOTT Amikacin S <16 Ampicillin/Sulbactam S 88/4 Cefepime S 8 Ceftazidime S 8 Ceftriaxone I 32 Gentamicin S <2 Meropenem R >8 Minocycline I 8 Tetracycline R >8 Tobramycin S <2 Trimethoprim/Sulfame thoxazole R >2 S = SUSCEPTIBLE I = INTERMEDIATE R = RESISTANT BLANK = DATA NOT AVAILABLE, OR DRUG NOT ADVISABLE OR TESTED R* = RESISTANCE DUE TO EXTENDED SPECTRUM BETA-LACTAMASES ESBL = EXTENDED SPECTRUM BETA-LACTAMASE TFG = THYMIDINE-DEPENDENT STRAIN ERASMO = BETA-LACTAMASE POSITIVE IB = INDUCIBLE BETA-LACTAMASE. APPEARS IN PLACE OF 'S' WITH SPECIES KNOWN TO POSSESS INDUCIBLE BETA-LACTAMASES. POTENTIALLY THEY MAY BECOME RESISTANT TO ALL B-LACTAM DRUGS. PERFORMED BY: [facility] [address] [place] [address] PATHOLOGIST METAPHYSICIAN RENETTA MONACO M.D. Normal [facility] Comment on above: Performed By: #### S CAN CBC, BMP #### [facility] [address] Urine bacteria detection by automated methodOrdered By: William Carver on 02-14-2023 Bacteria Auto Ql (U) None seen None Seen [facility] Urine clarity by refractomet ry automatedOrdered By: William Carver on 02-14-2023 Clarity Refractometry automated (U) Turbid Clear [facility] Urine culture routineOrdered By: William Carver on 02-14-2023 Bacteria identified Cx Nom (U) Acinetobacter crystal/nosocom grp [facility] Urine glucose measurement by automated test strip (mass/volume)Ordered By: William Carver on 02-14-2023 Glucose Auto test strip (U) [Mass/Vol] Normal mg/dL Normal [facility] Urine hemoglobin detection b y automated test stripOrdered By: William Carver on 02-14-2023 Hemoglobin Auto test strip Ql (U) Trace Negative [facility] Urine leukocyte esterase det ection by automated test stripOrdered By: William Carver on 02-14-2023 Leukocyte esterase Auto test strip Ql (U) 3+ Negative [facility] Urine sediment crystal ident ification by light microscopyOrdered By: William Carver on 02-14-2023 Crystals LM Nom (Urine sed) None seen [HPF] [facility] Urobilinogen Auto test strip (U) [Mass/Vol]Ordered By: William Carver on 02-14-2023 Urobilinogen (U) [Mass/Vol] Normal mg/dL Normal [facility] WBC Auto (Bld) [#/Vol]Ordere d By: William Chavezkatarina on 02-14-2023 WBC (Bld) [#/Vol] 6.0 10*3/uL 4.1-10.5 [facility] Yeast detection in urine sed iment by light microscopyOrdered By: William Wen on 02-14-2023 Yeast LM Ql (Urine sed) None seen [HPF] None Se en [facility] pH Auto test strip (U)Ordere d By: William Wen on 02-14-2023 pH (U) 7.5 [pH] 5.0-9.0 [facility] Basic Metabolic Panelon 01-26 Anion gap [Moles/Vol] 8.4 mmol/L Normal 6.0-15.0 [facility] Comment on above: Order Comment: for m uscle spasms, I let the charge @rn, she is going to let hany huitronpls. Performed By: #### S CAN CBC, BMP #### [facility] [address] [place] [address] Calcium [Mass/Vol] 8.8 mg/dL Normal 8.6-10.3 [facility] Comment on above: Order Comment: for m uscle spasms, I let the charge @rn, she is going to let rn lila huitron,pls. Performed By: #### S CAN CBC, BMP #### [facility] [address] [place] [address] [place] Chloride [Moles/Vol] 105 mmol/L Normal 98-[address] [facility] Comment on above: Order Comment: for m uscle spasms, I let the charge @rn, she is going to let rn lila huitron,pls. Performed By: #### S CAN CBC, BMP #### [facility] [address] [place] [address] [place] CO2 [Moles/Vol] 24.9 mmol/L Normal 21.0-31.0 [facility] Comment on above: Order Comment: for m uscle spasms, I let the charge @rn, she is going to let rn lila huitron,pls. Performed By: #### S CAN CBC, BMP #### [address] Creatinine [Mass/Vol] 0.84 mg/dL Normal 0.70-1.30 [facility] Comment on above: Order Comment: for wendy montero, I let the charge @rn, she is going to let rn lila huitron pls. Performed By: #### S CAN CBC, BMP #### [place] [address] [place] Creatinine Clr Calc Pharmacy 87.63 [facility] Comment on above: Order Comment: for wendy montero, I let the charge @rn, she is going to let rn lila huitron pls. Result Comment: PERF ORMED BY: [place] [address] PATHOLOGIST METAPHYSICIAN RENETTA MONACO M.D. Performed By: #### S CAN CBC, BMP #### [address] GFR/1.73 sq M.predicted MDRD (S/P/Bld) [Vol rate/Area] mL/min/{1.73_m2} [facility] Comment on above: Order Comment: for wendy montero, I let the charge @rn, she is going to let rn lila huitron pls. Performed By: #### S CAN CBC, BMP #### [address] Glucose [Mass/Vol] 125 mg/dL High 70-100 [facility] Comment on above: Order Comment: for wendy montero, I let the charge @rn, she is going to let rn lila huitronpls. Result Comment: Formerly named [facility] Glucose Reference Range is dependent on time and content of last meal. Glucose of more than 200 mg/dL in a nonstressed, ambulatory subject supports the diagnosis of Diabetes Mellitus. ADA recommended reference range Performed By: #### S CAN CBC, BMP #### [address] Potassium [Moles/Vol] 4.3 mmol/L Normal 3.5-5.1 [facility] Comment on above: Order Comment: for wendy uscle spasms, I let the charge @rn, she is going to let hany huitronpls. Performed By: #### S CAN CBC, BMP #### [facility] [address] Sodium [Moles/Vol] 134 mmol/L Low 136-145 [facility] Comment on above: Order Comment: for wendy uscle spasms, I let the charge @rn, she is going to let rn lila huitronpls. Performed By: #### S CAN CBC, BMP #### [facility] [address] Urea nitrogen [Mass/Vol] 11 mg/dL Normal 7-25 [facility] Comment on above: Order Comment: for wendy uscle spasms, I let the charge @rn, she is going to let rn lila huitronpls. Performed By: #### S CAN CBC, BMP #### [facility] [address] Basophils Auto (Bld) [#/Vol] Ordered By: Obbrandondah Daromar on 02-06-2023 Basophils (Bld) [#/Vol] 0.0 10*3/uL 0.0-0.2 [facility] Basophils/100 WBC Auto (Bld) Ordered By: Obbrandondah Daromar on 02-06-2023 Basophils/100 WBC (Bld) 1.1 % . [facility] Calcium [Mass/volume] in Ser um or PlasmaOrdered By: Obbrandondah Daromar on 02-06-2023 Calcium [Mass/Vol] 8.8 mg/dL 8.6-10.3 [facility] Carbon dioxide, total [Moles /volume] in Serum or PlasmaOrdered By: Obaydah Daromar on 02-06-2023 CO2 [Moles/Vol] 24.9 mmol/L 21.0-31.0 [facility] Chloride [Moles/volume] in S jennifer or PlasmaOrdered By: Obbrandondah Daromar on 02-06-2023 Chloride [Moles/Vol] 105 mmol/L 98-[address] [facility] Creatinine [Mass/volume] in Serum or PlasmaOrdered By: Ray Betancourt on 02-06-2023 Creatinine [Mass/Vol] 0.84 mg/dL 0.70-1.30 [facility] Eosinophils Auto (Bld) [#/Vo l]Ordered By: Ray Betancourt on 02-06-2023 Eosinophils (Bld) [#/Vol] 0.2 10*3/uL 0.0-0.45 [facility] Eosinophils/100 WBC Auto (Bl d)Ordered By: Ray Betancourt on 02-06-2023 Eosinophils/100 WBC (Bld) 6.5 % . [facility] Erythrocyte distribution wid th Auto (RBC) [Ratio]Ordered By: Ray Betancourt on 02-06-2023 Erythrocyte distribution width (RBC) [Ratio] 14.8 % 12.0-14.8 [facility] Glucose [Mass/volume] in Ser um or PlasmaOrdered By: Ray Betancourt on 02-06-2023 Glucose [Mass/Vol] 125 mg/dL 70-100 [facility] Comment on above: ADA recommended refe rence rangeRandom Glucose Reference Range is dependent on time and content of last meal. Glucose of more than 200 mg/dL in a nonstressed, ambulatory subject supports the diagnosis of Diabetes Mellitus. Hematocrit Auto (Bld) [Volum e fraction]Ordered By: Ray Betancourt on 02-06-2023 Hematocrit (Bld) [Volume fraction] 37.0 % 38.8-50.0 [facility] Hemoglobin [Mass/volume] in BloodOrdered By: Ray Betancourt on 02-06-2023 Hemoglobin (Bld) [Mass/Vol] 12.1 g/dL 13.0-17.0 [facility] Leukocytes [#/volume] correc mayte for nucleated erythrocytes in Blood by Automated counOrdered By: Ray Betancourt on 02-06-2023 WBC corrected for nucl RBC Auto (Bld) [#/Vol] 2.7 10*3/uL 4.1-10.5 [facility] Lymphocytes Auto (Bld) [#/Vo l]Ordered By: Obaydah Daromar on 02-06-2023 Lymphocytes (Bld) [#/Vol] 1.4 10*3/uL 1.00-4.8 [facility] Lymphocytes/100 WBC Auto (Bl d)Ordered By: Obaydah Daromar on 02-06-2023 Lymphocytes/100 WBC (Bld) 51.3 % . [facility] MCH Auto (RBC) [Entitic mass ]Ordered By: Obaydah Daromar on 02-06-2023 MCH (RBC) [Entitic mass] 27.4 pg 27.5-35.2 [facility] MCHC Auto (RBC) [Mass/Vol]Or dered By: Obaydah Daromar on 02-06-2023 MCHC (RBC) [Mass/Vol] 32.8 g/dL 32.5-35.6 [facility] MCV Auto (RBC) [Entitic vol] Ordered By: Obaydah Daromar on 02-06-2023 MCV (RBC) [Entitic vol] 83.5 fL 83.5-101 [facility] Monocytes Auto (Bld) [#/Vol] Ordered By: Obaydah Daromar on 02-06-2023 Monocytes (Bld) [#/Vol] 0.3 10*3/uL 0.0-0.8 [facility] Monocytes/100 WBC Auto (Bld) Ordered By: Obaydah Daromar on 02-06-2023 Monocytes/100 WBC (Bld) 10.1 % . [facility] Neutrophils Auto (Bld) [#/Vo l]Ordered By: Obaydah Daromar on 02-06-2023 Neutrophils (Bld) [#/Vol] 0.8 10*3/uL 1.8-7.7 [facility] Neutrophils/100 WBC Auto (Bl d)Ordered By: Obaydah Daromar on 02-06-2023 Neutrophils/100 WBC (Bld) 31.0 % . [facility] No Panel InformationOrdered By: Obaydah Daromar on 02-06-2023 Estimated GFR (CKD-EPI) > 60.0 mL/Min [facility] Creatinine Clearance (Chem 87.63 [facility] Nucleated erythrocytes [Pres ence] in Blood by Automated countOrdered By: Ray Betancourt on 02-06-2023 Nucleated RBC Auto Ql (Bld) 0.3 /100{WBC} 0-0.5 [facility] Platelet adequacy [Presence] in Blood by Light microscopyOrdered By: Ray Floresomar on 02-06-2023 Platelets LM Ql (Bld) Normal Normal [facility] Platelet mean volume Auto (B ld) [Entitic vol]Ordered By: Obsal Floresomar on 02-06-2023 Platelet mean volume (Bld) [Entitic vol] 7.2 fL 6.6-10.1 [facility] Platelet morphology finding [Identifier] in BloodOrdered By: Ray Floresomar on 02-06-2023 Platelet morphology finding Nom (Bld) Normal Normal [facility] Platelets Auto (Bld) [#/Vol] Ordered By: Ray Floresomar on 02-06-2023 Platelets (Bld) [#/Vol] 277 10*3/uL 150-450 [facility] Potassium [Moles/volume] in Serum or PlasmaOrdered By: Ray Betancourt on 02-06-2023 Potassium [Moles/Vol] 4.3 mmol/L 3.5-5.1 [facility] RBC Auto (Bld) [#/Vol]Ordere d By: Ray Floresomar on 02-06-2023 RBC (Bld) [#/Vol] 4.42 10*6/uL 3.90-5.60 [facility] RBC morphologyOrdered By: Yash Betancourt on 02-06-2023 RBC morphology finding Nom (Bld) Normal Normal [facility] Scan and CBCon 02-06-2023 Basophils (Bld) [#/Vol] 0.0 10*3/uL Normal 0.0-0.2 [facility] Comment on above: Order Comment: for wendy montero, I let the charge @rn, she is going to let rn lila huitronpls. Result Comment: PERF ORMED BY: [place] [address] PATHOLOGIST METAPHYSICIAN RENETTA MONACO M.D. Performed By: #### S CAN CBC, BMP #### [address] Basophils/100 WBC (Bld) 1.1 % Normal . [facility] Comment on above: Order Comment: for m uscle spasms, I let the charge @rn, she is going to let rn lila huitronpls. Performed By: #### S CAN CBC, BMP #### [address] Eosinophils (Bld) [#/Vol] 0.2 10*3/uL Normal 0.0-0.45 [facility] Comment on above: Order Comment: for m uscle spasms, I let the charge @rn, she is going to let rn lila huitron,pls. Performed By: #### S CAN CBC, BMP #### [address] Eosinophils/100 WBC (Bld) 6.5 % Normal . [facility] Comment on above: Order Comment: for m uscle spasms, I let the charge @rn, she is going to let rn lila huitronpls. Performed By: #### S CAN CBC, BMP #### [address] Erythrocyte distribution width (RBC) [Ratio] 14.8 % Normal 12.0-14.8 [facility] Comment on above: Order Comment: for m uscle spasms, I let the charge @rn, she is going to let rn lila tomy,pls. Performed By: #### S CAN CBC, BMP #### [address] Hematocrit (Bld) [Volume fraction] 37.0 % Low 38.8-50.0 [facility] Comment on above: Order Comment: for m uscle spasms, I let the charge @rn, she is going to let rn lila know,pls. Performed By: #### S CAN CBC, BMP #### [address] Hemoglobin (Bld) [Mass/Vol] 12.1 g/dL Low 13.0-17.0 [facility] Comment on above: Order Comment: for wendy uscle spasms, I let the charge @rn, she is going to let rn lila know,pls. Performed By: #### S CAN CBC, BMP #### [address] Lymphocytes (Bld) [#/Vol] 1.4 10*3/uL Normal 1.00-4.8 [facility] Comment on above: Order Comment: for wendy uscle spasms, I let the charge @rn, she is going to let rn lila know,pls. Performed By: #### S CAN CBC, BMP #### [address] Lymphocytes/100 WBC (Bld) 51.3 % Normal . [facility] Comment on above: Order Comment: for wendy uscle spasms, I let the charge @rn, she is going to let rn lila know,pls. Performed By: #### S CAN CBC, BMP #### [address] MCH (RBC) [Entitic mass] 27.4 pg Low 27.5-35.2 [facility] Comment on above: Order Comment: for m uscle spasms, I let the charge @rn, she is going to let rn lila know,pls. Performed By: #### S CAN CBC, BMP #### [address] MCV (RBC) [Entitic vol] 83.5 fL Normal 83.5-101 [facility] Comment on above: Order Comment: for m uscle spasms, I let the charge @rn, she is going to let rn lila know,pls. Performed By: #### S CAN CBC, BMP #### [place] [id number] [place] Mean Corpuscular HGB Conc 32.8 g/dL Normal 32.5-35.6 [facility] Comment on above: Order Comment: for m uscle spasms, I let the charge @rn, she is going to let rn lila know,pls. Performed By: #### S CAN CBC, BMP #### [address] Monocytes (Bld) [#/Vol] 0.3 10*3/uL Normal 0.0-0.8 [facility] Comment on above: Order Comment: for m uscle spasms, I let the charge @rn, she is going to let rn lila know,pls. Performed By: #### S CAN CBC, BMP #### [address] Monocytes/100 WBC (Bld) 10.1 % Normal . [facility] Comment on above: Order Comment: for m uscle spasms, I let the charge @rn, she is going to let rn lila know,pls. Performed By: #### S CAN CBC, BMP #### [place] [address] [place] Neutrophils (Bld) [#/Vol] 0.8 10*3/uL Low 1.8-7.7 [facility] Comment on above: Order Comment: for m uscle spasms, I let the charge @rn, she is going to let rn lila know,pls. Performed By: #### S CAN CBC, BMP #### [facility] [address] [place] [address] Neutrophils/100 WBC (Bld) 31.0 % Normal . [facility] Comment on above: Order Comment: for m uscle spasms, I let the charge @rn, she is going to let rn lila know,pls. Performed By: #### S CAN CBC, BMP #### [address] NRBC% 0.3 /100{WBC} Normal 0-0.5 [facility] Comment on above: Order Comment: for m uscle spasms, I let the charge @rn, she is going to let rn lila know,pls. Performed By: #### S CAN CBC, BMP #### [address] Platelet Estimate Normal Normal Normal [facility] Comment on above: Order Comment: for m uscle spasms, I let the charge @rn, she is going to let rn lila know,pls. Performed By: #### S CAN CBC, BMP #### [address] Platelet mean volume (Bld) [Entitic vol] 7.2 fL Normal 6.6-10.1 [facility] Comment on above: Order Comment: for wendy uscle spasms, I let the charge @rn, she is going to let rn lila know,pls. Performed By: #### S CAN CBC, BMP #### [address] Platelet Morphology Normal Normal Normal [facility] Comment on above: Order Comment: for wendy uscle spasms, I let the charge @rn, she is going to let rn lila know,pls. Result Comment: PERF ORMED BY: [place] [address] PATHOLOGIST METAPHYSICIAN RENETTA MONACO M.D. Performed By: #### S CAN CBC, BMP #### [place] [address] [place] Platelets (Bld) [#/Vol] 277 10*3/uL Normal 150-450 [facility] Comment on above: Order Comment: for m uscle spasms, I let the charge @rn, she is going to let rn lila know,pls. Performed By: #### S CAN CBC, BMP #### [place] [address] [place] RBC (Bld) [#/Vol] 4.42 10*6/uL Normal 3.90-5.60 [facility] Comment on above: Order Comment: for m uscle spasms, I let the charge @rn, she is going to let rn lila huitron,pls. Performed By: #### S CAN CBC, BMP #### [facility] [address] RBC morphology finding Nom (Bld) Normal Normal Normal [facility] Comment on above: Order Comment: for wendy lambertcle spasms, I let the charge @rn, she is going to let rn lila huitron,pls. Performed By: #### S CAN CBC, BMP #### [facility] [address] WBC (Bld) [#/Vol] 2.7 10*3/uL Low 4.1-10.5 [facility] Comment on above: Order Comment: for wendy nelson spasms, I let the charge @rn, she is going to let rn lila huitron,pls. Performed By: #### S CAN CBC, BMP #### [facility] [address] [place] [address] Serum or plasma anion gap de terminationOrdered By: Obaydah Daromar on 02-06-2023 Anion gap [Moles/Vol] 8.4 mmol/L 6.0-15.0 [facility] Sodium [Moles/volume] in Ser um or PlasmaOrdered By: Obaydah Daromar on 02-06-2023 Sodium [Moles/Vol] 134 mmol/L 136-145 [facility] Urea nitrogen [Mass/volume] in Serum or PlasmaOrdered By: Obaydah Daromar on 02-06-2023 Urea nitrogen [Mass/Vol] 11 mg/dL 10-19 [facility] WBC Auto (Bld) [#/Vol]Ordere d By: Obaydah Daromar on 02-06-2023 WBC (Bld) [#/Vol] 2.7 10*3/uL 4.1-10.5 [facility] Alanine aminotransferase [En zymatic activity/volume] in Serum or PlasmaOrdered By: Obaydah Daromar on 02-05-2023 ALT [Catalytic activity/Vol] 5 U/L [facility] Albumin [Mass/volume] in Ser um or Plasma by Bromocresol green (BCG) dye binding methoOrdered By: Obbrandondachris Floresomar on 02-05-2023 Albumin BCG dye [Mass/Vol] 3.7 g/dL 3.5-5.7 [facility] Alkaline phosphatase [Enzyma tic activity/volume] in Serum or PlasmaOrdered By: Obaydah Daromar on 02-05-2023 ALP [Catalytic activity/Vol] 43 U/L 34-104 [facility] Aspartate aminotransferase [ Enzymatic activity/volume] in Serum or PlasmaOrdered By: Obaydah Daromar on 02-05-2023 AST [Catalytic activity/Vol] 10 U/L 13-39 [facility] Bilirubin.total [Mass/volume ] in Serum or PlasmaOrdered By: Obbrandondachris Daromar on 02-05-2023 Bilirubin [Mass/Vol] 0.4 mg/dL 0.3-1.[address] [facility] Complete Blood Count Auto Di ffon 02-05-2023 Basophils (Bld) [#/Vol] 0.0 10*3/uL Normal 0.0-0.2 [facility] Comment on above: Result Comment: PERF ORMED BY: [place] [address] PATHOLOGIST METAPHYSICIAN RENETTA MONACO M.D. Performed By: #### S CAN CBC, BMP #### [facility] [address] [place] [address] [place] Basophils/100 WBC (Bld) 1.0 % Normal . [facility] Comment on above: Performed By: #### S CAN CBC, BMP #### [facility] [address] [place] [address] [place] Eosinophils (Bld) [#/Vol] 0.2 10*3/uL Normal 0.0-0.45 [facility] Comment on above: Performed By: #### S CAN CBC, BMP #### [facility] [address] [place] [address] [place] Eosinophils/100 WBC (Bld) 7.1 % Normal . [facility] Comment on above: Performed By: #### S CAN CBC, BMP #### [facility] [address] Erythrocyte distribution width (RBC) [Ratio] 14.8 % Normal 12.0-14.8 [facility] Comment on above: Performed By: #### S CAN CBC, BMP #### [facility] [address] Hematocrit (Bld) [Volume fraction] 35.5 % Low 38.8-50.0 [facility] Comment on above: Performed By: #### S CAN CBC, BMP #### [facility] [address] Hemoglobin (Bld) [Mass/Vol] 11.7 g/dL Low 13.0-17.0 [facility] Comment on above: Performed By: #### S CAN CBC, BMP #### [address] Lymphocytes (Bld) [#/Vol] 1.4 10*3/uL Normal 1.00-4.8 [facility] Comment on above: Performed By: #### S CAN CBC, BMP #### [address] Lymphocytes/100 WBC (Bld) 44.0 % Normal . [facility] Comment on above: Performed By: #### S CAN CBC, BMP #### [facility] [address] [place] [address] MCH (RBC) [Entitic mass] 27.5 pg Normal 27.5-35.2 [facility] Comment on above: Performed By: #### S CAN CBC, BMP #### [facility] [address] MCV (RBC) [Entitic vol] 83.0 fL Low 83.5-101 F [facility] Comment on above: Performed By: #### S CAN CBC, BMP #### [facility] [address] Mean Corpuscular HGB Conc 33.1 g/dL Normal 32.5-35.6 [facility] Comment on above: Performed By: #### S CAN CBC, BMP #### [facility] [address] [place] [address] [place] Monocytes (Bld) [#/Vol] 0.3 10*3/uL Normal 0.0-0.8 [facility] Comment on above: Performed By: #### S CAN CBC, BMP #### [facility] [address] [place] [address] [place] Monocytes/100 WBC (Bld) 8.1 % Normal . [facility] Comment on above: Performed By: #### S CAN CBC, BMP #### [facility] [address] [place] [address] [place] Neutrophils (Bld) [#/Vol] 1.2 10*3/uL Low 1.8-7.7 [facility] Comment on above: Performed By: #### S CAN CBC, BMP #### [facility] [address] [place] [address] [place] Neutrophils/100 WBC (Bld) 39.8 % Normal . [facility] Comment on above: Performed By: #### S CAN CBC, BMP #### [facility] [address] [place] [address] [place] NRBC% 0.1 /100{WBC} Normal 0-0.5 [facility] Comment on above: Performed By: #### S CAN CBC, BMP #### [facility] [address] [place] [address] [place] Platelet mean volume (Bld) [Entitic vol] 7.5 fL Normal 6.6-10.1 [facility] Comment on above: Performed By: #### S CAN CBC, BMP #### [facility] [address] [place] [address] [place] Platelets (Bld) [#/Vol] 318 10*3/uL Normal 150-450 [facility] Comment on above: Performed By: #### S CAN CBC, BMP #### [facility] [address] [place] [address] [place] RBC (Bld) [#/Vol] 4.27 10*6/uL Normal 3.90-5.60 [facility] Comment on above: Performed By: #### S CAN CBC, BMP #### [facility] [address] WBC (Bld) [#/Vol] 3.1 10*3/uL Low 4.1-10.5 [facility] Comment on above: Performed By: #### S CAN CBC, BMP #### [facility] [address] Comprehensive Metabolic Pane kimberly 02-05-2023 Albumin [Mass/Vol] 3.7 g/dL Normal 3.5-5.7 [facility] Comment on above: Performed By: #### S CAN CBC, BMP #### [facility] [address] [place] [address] Albumin/Globulin [Mass ratio] 1.4 {ratio} Normal [facility] Comment on above: Performed By: #### S CAN CBC, BMP #### [facility] [address] [place] [address] ALP [Catalytic activity/Vol] 43 U/L Normal 34-104 [facility] [place] Comment on above: Performed By: #### S CAN CBC, BMP #### [facility] [address] [place] [address] ALT [Catalytic activity/Vol] 5 U/L Low 7-52 [facility] [place] Comment on above: Performed By: #### S CAN CBC, BMP #### [facility] [address] [place] [address] Anion gap [Moles/Vol] 8.1 mmol/L Normal 6.0-15.0 [facility] Comment on above: Performed By: #### S CAN CBC, BMP #### [facility] [address] [place] [address] AST [Catalytic activity/Vol] 10 U/L Low 13-39 [facility] [place] Comment on above: Performed By: #### S CAN CBC, BMP #### [facility] [address] [place] [address] Bilirubin [Mass/Vol] 0.4 mg/dL Normal 0.3-1.[address] [facility] Comment on above: Performed By: #### S CAN CBC, BMP #### [facility] [address] [place] [address] [place] Calcium [Mass/Vol] 8.9 mg/dL Normal 8.6-10.3 [facility] Comment on above: Performed By: #### S CAN CBC, BMP #### [facility] [address] [place] [address] [place] Chloride [Moles/Vol] 106 mmol/L Normal 98-[address] [facility] Comment on above: Performed By: #### S CAN CBC, BMP #### [facility] [address] CO2 [Moles/Vol] 27.0 mmol/L Normal 21.0-31.0 [facility] Comment on above: Performed By: #### S CAN CBC, BMP #### [facility] [address] [place] [address] Creatinine [Mass/Vol] 0.78 mg/dL Normal 0.70-1.30 [facility] Comment on above: Performed By: #### S CAN CBC, BMP #### [facility] [address] [place] [address] [place] Creatinine Clr Calc Pharmacy 93.66 [facility] Comment on above: Result Comment: PERF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 on above: Performed By: #### 6 30-4 ####[facility] LABCLIA [id number] [facility] [id number] [address] [place] CNOVon 01-10-2023 CNOV Normal [facility] CNPNon 12-23-2022 CNPN Normal [facility] CNOVon 12-16-2022 CNOV Normal [facility] CNPTOUTREACHon 12-16-2022 CNPTOUTREACH Normal [facility] US KIDNEY/BLADDERon 12-17-19 23 US KIDNEY/BLADDER Normal [facility] XR ABDOMEN 3V KUB W/OBLIQUES on 12-16-2022 XR ABDOMEN 3V KUB W/OBLIQUES Normal [facility] Amorphous urine sedimentOrde red By: Jun Gaona on 12-07-2022 Amorphous sediment LM Ql (Urine sed) 3+ [LPF] [facility] Automated epithelial cells c ount in urine sediment (number/area)Ordered By: Jun Gaona on 12-07-2022 Epithelial cells Auto (Urine sed) [#/Area] 1-2 [HPF] 0-2 [facility] Automated erythrocytes count in urine sediment (number/area)Ordered By: Jun Gaona on 12-07-2022 RBC Auto (Urine sed) [#/Area] 3-4 [HPF] 0-4 [facility] Automated leukocytes count i n urine sediment (number/area)Ordered By: Jun Gaona on 12-07-2022 WBC Auto (Urine sed) [#/Area] Innumerable [HPF] 0-4 [facility] Automated urine hyaline cast s count (number/volume)Ordered By: Jun Gaona on 12-07-2022 Hyaline casts Auto (U) [#/Vol] None seen [LPF] 0-1 [facility] Automated urine sediment alice cium oxalate crystal count by microscopy (number/high powOrdered By: Jun Gaona on 12-07-2022 Calcium oxalate crystals LM.HPF (Urine sed) [#/Area] 1+ [HPF] [facility] Basic Metabolic Panelon 11-26 Anion gap [Moles/Vol] 8.4 mmol/L Normal 6.0-15.0 [facility] Comment on above: Performed By: #### C BC, BMP #### [facility] [address] [place] [address] [place] Calcium [Mass/Vol] 9.2 mg/dL Normal 8.6-10.3 [facility] Comment on above: Performed By: #### C BC, BMP #### [facility] [address] [place] [address] [place] Chloride [Moles/Vol] 108 mmol/L High 98-[address] [facility] Comment on above: Performed By: #### C BC, BMP #### [facility] [address] [place] [address] [place] CO2 [Moles/Vol] 27.6 mmol/L Normal 21.0-31.0 [facility] Comment on above: Performed By: #### C BC, BMP #### [facility] [address] [place] [address] [place] Creatinine [Mass/Vol] 0.70 mg/dL Normal 0.70-1.30 [facility] Comment on above: Performed By: #### C BC, BMP #### [facility] [address] [place] [address] [place] Creatinine Clr Calc Pharmacy 89.68 Normal [facility] Comment on above: Result Comment: PERF ORMED BY: [place] [address] PATHOLOGIST METAPHYSICIAN RENETTA MONACO M.D. Performed By: #### C BC, BMP #### [facility] [address] [place] [address] [place] GFR/1.73 sq M.predicted MDRD (S/P/Bld) [Vol rate/Area] mL/min/{1.73_m2} Normal [facility] Comment on above: Performed By: #### C BC, BMP #### [facility] [address] Glucose [Mass/Vol] 79 mg/dL Normal 70-100 [facility] Comment on above: Result Comment: [place] Glucose Reference Range is dependent on time and content of last meal. Glucose of more than 200 mg/dL in a nonstressed, ambulatory subject supports the diagnosis of Diabetes Mellitus. ADA recommended reference range Performed By: #### C BC, BMP #### [facility] [address] Potassium [Moles/Vol] 4.0 mmol/L Normal 3.5-5.1 [facility] Comment on above: Performed By: #### C BC, BMP #### [facility] [address] Sodium [Moles/Vol] 140 mmol/L Normal 136-145 [facility] Comment on above: Performed By: #### C BC, BMP #### [facility] [address] Urea nitrogen [Mass/Vol] 14 mg/dL Normal 7-25 [facility] Comment on above: Performed By: #### C BC, BMP #### [facility] [address] Basophils Auto (Bld) [#/Vol] Ordered By: Jun Gaona on 12-07-2022 Basophils (Bld) [#/Vol] 0.1 10*3/uL 0.0-0.2 [facility] Basophils/100 WBC Auto (Bld) Ordered By: Jun Gaona on 12-07-2022 Basophils/100 WBC (Bld) 1.5 % . [facility] Bilirubin Test strip Ql (U)O rdered By: Jun Gaona on 12-07-2022 Bilirubin Ql (U) Negative Negative [facility] Calcium [Mass/volume] in Ser um or PlasmaOrdered By: Jun Gaona on 12-07-2022 Calcium [Mass/Vol] 9.2 mg/dL 8.6-10.3 [facility] Carbon dioxide, total [Moles /volume] in Serum or PlasmaOrdered By: Jun Gaona on 12-07-2022 CO2 [Moles/Vol] 27.6 mmol/L 21.0-31.0 [facility] Casts typing in urine sedime nt by light microscopyOrdered By: Jun Gaona on 12-07-2022 Casts LM Nom (Urine sed) None seen [LPF] None Seen [facility] Chloride [Moles/volume] in S jennifer or PlasmaOrdered By: Jun Gaona on 12-07-2022 Chloride [Moles/Vol] 108 mmol/L 98-[address] [facility] Color Auto (U)Ordered By: Raheem red Candelaria on 12-07-2022 Color (U) Yellow Yellow [facility] Complete Blood Count Auto Di ffon 12-07-2022 Basophils (Bld) [#/Vol] 0.1 10*3/uL Normal 0.0-0.2 [facility] Comment on above: Result Comment: PERF ORMED BY: [place] [address] PATHOLOGIST METAPHYSICIAN RENETTA MONACO M.D. Performed By: #### C PETEY, BMP #### [address] Basophils/100 WBC (Bld) 1.5 % Normal . [facility] Comment on above: Performed By: #### C PETEY, BMP #### [facility] [address] [place] [address] [place] Eosinophils (Bld) [#/Vol] 0.3 10*3/uL Normal 0.0-0.45 [facility] Comment on above: Performed By: #### C PETEY, BMP #### [place] [address] [place] Eosinophils/100 WBC (Bld) 7.5 % Normal . [facility] Comment on above: Performed By: #### C BC, BMP #### [facility] [address] Erythrocyte distribution width (RBC) [Ratio] 14.8 % Normal 12.0-14.8 [facility] Comment on above: Performed By: #### C BC, BMP #### [facility] [address] Hematocrit (Bld) [Volume fraction] 36.9 % Low 38.8-50.0 [facility] Comment on above: Performed By: #### C BC, BMP #### [facility] [address] Hemoglobin (Bld) [Mass/Vol] 12.1 g/dL Low 13.0-17.0 [facility] Comment on above: Performed By: #### C BC, BMP #### [address] Lymphocytes (Bld) [#/Vol] 1.5 10*3/uL Normal 1.00-4.8 [facility] Comment on above: Performed By: #### C BC, BMP #### [address] Lymphocytes/100 WBC (Bld) 37.3 % Normal . [facility] Comment on above: Performed By: #### C BC, BMP #### [address] MCH (RBC) [Entitic mass] 27.1 pg Low 27.5-35.2 [facility] Comment on above: Performed By: #### C BC, BMP #### [address] MCV (RBC) [Entitic vol] 82.8 fL Low 83.5-101 F [facility] Comment on above: Performed By: #### C BC, BMP #### [facility] [address] Mean Corpuscular HGB Conc 32.8 g/dL Normal 32.5-35.6 [facility] Comment on above: Performed By: #### C BC, BMP #### [address] Monocytes (Bld) [#/Vol] 0.3 10*3/uL Normal 0.0-0.8 [facility] Comment on above: Performed By: #### C BC, BMP #### [facility] [address] Monocytes/100 WBC (Bld) 18.59 % Normal 0.00-20.00 [facility] Comment on above: Performed By: #### C BC, BMP #### [facility] [address] Monocytes/100 WBC (Bld) 6.9 % Normal . [facility] Comment on above: Performed By: #### C BC, BMP #### [address] Neutrophils (Bld) [#/Vol] 1.9 10*3/uL Normal 1.8-7.7 [facility] Comment on above: Performed By: #### C BC, BMP #### [address] Neutrophils/100 WBC (Bld) 46.8 % Normal . [facility] Comment on above: Performed By: #### C BC, BMP #### [address] NRBC% 0.2 /100{WBC} Normal 0-0.5 [facility] Comment on above: Performed By: #### C BC, BMP #### [address] Platelet mean volume (Bld) [Entitic vol] 8.1 fL Normal 6.6-10.1 [facility] Comment on above: Performed By: #### C BC, BMP #### [place] [address] [place] Platelets (Bld) [#/Vol] 204 10*3/uL Normal 150-450 [facility] Comment on above: Performed By: #### C BC, BMP #### [place] [address] [place] RBC (Bld) [#/Vol] 4.46 10*6/uL Normal 3.90-5.60 [facility] Comment on above: Performed By: #### C BC, BMP #### [address] WBC (Bld) [#/Vol] 4.1 10*3/uL Normal 4.1-10.5 [facility] Comment on above: Performed By: #### C BC, BMP #### [address] Creatinine [Mass/volume] in Serum or PlasmaOrdered By: Jun Gaona on 12-07-2022 Creatinine [Mass/Vol] 0.70 mg/dL 0.70-1.30 [facility] Dipstick and Microscopicon 0 12-07-2022 Amorphous Sediment,Urine 3+ Normal [facility] Comment on above: Order Comment: for m uscle spasms, I let the charge @rn, she is going to let rn lila know,pls. Performed By: #### S CAN CBC, BMP #### [address] Appearance (U) Turbid Critically abnormal Clear [facility] Comment on above: Order Comment: for m uscle spasms, I let the charge @rn, she is going to let rn lila know,pls. Performed By: #### S CAN CBC, BMP #### [place] [address] [place] Bacteria,Urine 3+ High None Seen [facility] Comment on above: Order Comment: for m uscle spasms, I let the charge @rn, she is going to let rn lila know,pls. Performed By: #### S CAN CBC, BMP #### [place] [address] [place] Bilirubin,Urine Negative Normal Negative [facility] Comment on above: Order Comment: for m uscle spasms, I let the charge @rn, she is going to let rn lila know,pls. Performed By: #### S CAN CBC, BMP #### [address] [place] [address] [place] Calcium Oxalate Crystals,Urine 1+ Normal [facility] Comment on above: Order Comment: for wendy uscle spasms, I let the charge @rn, she is going to let rn lila know,pls. Performed By: #### S CAN CBC, BMP #### [address] Color (U) Yellow Normal Yellow [facility] Comment on above: Order Comment: for m uscle spasms, I let the charge @rn, she is going to let rn lila know,pls. Performed By: #### S CAN CBC, BMP #### [address] Glucose Ql (U) Normal Normal Normal [facility] Comment on above: Order Comment: for wendy uscle spasms, I let the charge @rn, she is going to let rn lila know,pls. Performed By: #### S CAN CBC, BMP #### [address] Hyaline Casts,Urine None Seen Normal 0-1 [facility] Comment on above: Order Comment: for wendy uscle spasms, I let the charge @rn, she is going to let rn lila know,pls. Performed By: #### S CAN CBC, BMP #### [address] Ketones Ql (U) Negative Normal Negative [facility] Comment on above: Order Comment: for m uscle spasms, I let the charge @rn, she is going to let rn lila know,pls. Performed By: #### S CAN CBC, BMP #### [address] Leukocyte esterase Test strip Ql (U) 4+ High Negative [facility] Comment on above: Order Comment: for m uscle spasms, I let the charge @rn, she is going to let rn lila know,pls. Performed By: #### S CAN CBC, BMP #### [place] [address] [place] Nitrite,Urine Positive High Negative [facility] Comment on above: Order Comment: for wendy uscle spasms, I let the charge @rn, she is going to let rn lila hutironpls. Performed By: #### S CAN CBC, BMP #### [address] Occult Blood,Urine 2+ High Negative [facility] Comment on above: Order Comment: for wendy uscle spasms, I let the charge @rn, she is going to let rn lila huitronpls. Result Comment: PERF ORMED BY: [place] [address] PATHOLOGIST METAPHYSICIAN RENETTA MONACO M.D. Performed By: #### S CAN CBC, BMP #### [address] Other Casts,Urine None Seen Normal None Seen [facility] Comment on above: Order Comment: for wendy uscle spasms, I let the charge @rn, she is going to let rn lila huitronpls. Result Comment: PERF ORMED BY: [place] [address] PATHOLOGIST METAPHYSICIAN RENETTA MONACO M.D. Performed By: #### S CAN CBC, BMP #### [address] pH (U) 7.5 [pH] Normal 5.0-9.0 [facility] Comment on above: Order Comment: for wendy uscle spasms, I let the charge @rn, she is going to let rn illa huitron,pls. Performed By: #### S CAN CBC, BMP #### [facility] [address] [place] [address] [place] Protein,Urine Trace High Negative [facility] Comment on above: Order Comment: for wendy uscle spasms, I let the charge @rn, she is going to let rn lila huitron,pls. Performed By: #### S CAN CBC, BMP #### [place] [address] [place] RBC,Urine 3-4 Normal 0-4 [facility] Comment on above: Order Comment: for m uscle spasms, I let the charge @rn, she is going to let rn lila huitron,pls. Performed By: #### S CAN CBC, BMP #### [address] Specificy [place],Urine 1.005 Normal 1.001-1.030 [facility] Comment on above: Order Comment: for m uscle spasms, I let the charge @rn, she is going to let rn lila huitron,pls. Performed By: #### S CAN CBC, BMP #### [address] Squamous Epithelial Cell,Urine 1-2 Normal 0-2 [facility] Comment on above: Order Comment: for wendy uscle spasms, I let the charge @rn, she is going to let rn lila huitron,pls. Performed By: #### S CAN CBC, BMP #### [address] Urobilinogen,Urine Normal Normal Normal [facility] Comment on above: Order Comment: for wendy uscle spasms, I let the charge @rn, she is going to let rn lila know,pls. Performed By: #### S CAN CBC, BMP #### [facility] [address] [place] [address] WBC,Urine Innumerable High 0-4 [facility] Comment on above: Order Comment: for wendy uscle spasms, I let the charge @rn, she is going to let rn lila know,pls. Performed By: #### S CAN CBC, BMP #### [facility] [address] [place] [address] [place] Eosinophils Auto (Bld) [#/Vo l]Ordered By: Jun Gaona on 12-07-2022 Eosinophils (Bld) [#/Vol] 0.3 10*3/uL 0.0-0.45 [facility] Eosinophils/100 WBC Auto (Bl d)Ordered By: Jun Gaona on 12-07-2022 Eosinophils/100 WBC (Bld) 7.5 % . [facility] Erythrocyte distribution wid th Auto (RBC) [Ratio]Ordered By: Jun Gaona on 12-07-2022 Erythrocyte distribution width (RBC) [Ratio] 14.8 % 12.0-14.8 [facility] Glucose [Mass/volume] in Ser um or PlasmaOrdered By: Jun Gaona on 12-07-2022 Glucose [Mass/Vol] 79 mg/dL 70-100 [facility] Comment on above: ADA recommended refe rence rangeRandom Glucose Reference Range is dependent on time and content of last meal. Glucose of more than 200 mg/dL in a nonstressed, ambulatory subject supports the diagnosis of Diabetes Mellitus. Hematocrit Auto (Bld) [Volum e fraction]Ordered By: Jun Gaona on 12-07-2022 Hematocrit (Bld) [Volume fraction] 36.9 % 38.8-50.0 [facility] Hemoglobin [Mass/volume] in BloodOrdered By: Jun Gaona on 12-07-2022 Hemoglobin (Bld) [Mass/Vol] 12.1 g/dL 13.0-17.0 [facility] Ketones Auto test strip (U) [Mass/Vol]Ordered By: Jun Gaona on 12-07-2022 Ketones (U) [Mass/Vol] Negative Negative [facility] Leukocytes [#/volume] correc mayte for nucleated erythrocytes in Blood by Automated counOrdered By: Jun Gaona on 12-07-2022 WBC corrected for nucl RBC Auto (Bld) [#/Vol] 4.1 10*3/uL 4.1-10.5 [facility] Lymphocytes Auto (Bld) [#/Vo l]Ordered By: Jun Gaona on 12-07-2022 Lymphocytes (Bld) [#/Vol] 1.5 10*3/uL 1.00-4.8 [facility] Lymphocytes/100 WBC Auto (Bl d)Ordered By: Jun Gaona on 12-07-2022 Lymphocytes/100 WBC (Bld) 37.3 % . [facility] MCH Auto (RBC) [Entitic mass ]Ordered By: Jun Gaona on 12-07-2022 MCH (RBC) [Entitic mass] 27.1 pg 27.5-35.2 [facility] MCHC Auto (RBC) [Mass/Vol]Or dered By: Jun Gaona on 12-07-2022 MCHC (RBC) [Mass/Vol] 32.8 g/dL 32.5-35.6 [facility] MCV Auto (RBC) [Entitic vol] Ordered By: Jun Gaona on 12-07-2022 MCV (RBC) [Entitic vol] 82.8 fL 83.5-101 F [facility] Monocyte distribution width [Entitic volume] in Blood by AutomatedOrdered By: Jun Gaona on 12-07-2022 Monocyte distribution width Auto (Bld) [Entitic vol] 18.59 % 0.00-20.00 [facility] Monocytes Auto (Bld) [#/Vol] Ordered By: Jun Gaona on 12-07-2022 Monocytes (Bld) [#/Vol] 0.3 10*3/uL 0.0-0.8 [facility] Monocytes/100 WBC Auto (Bld) Ordered By: Jun Gaona on 12-07-2022 Monocytes/100 WBC (Bld) 6.9 % . F [facility] Neutrophils Auto (Bld) [#/Vo l]Ordered By: Jun Gaona on 12-07-2022 Neutrophils (Bld) [#/Vol] 1.9 10*3/uL 1.8-7.7 [facility] Neutrophils/100 WBC Auto (Bl d)Ordered By: Jun Gaona on 12-07-2022 Neutrophils/100 WBC (Bld) 46.8 % . [facility] Nitrite Test strip Ql (U)Ord ered By: Jun Gaona on 12-07-2022 Nitrite Ql (U) Positive Negative [facility] No Panel InformationOrdered By: Jun Gaona on 12-07-2022 Estimated GFR (CKD-EPI) > 60.0 mL/Min [facility] Creatinine Clearance (Chem 89.68 [facility] Nucleated erythrocytes [Pres ence] in Blood by Automated countOrdered By: Jun Gaona on 12-07-2022 Nucleated RBC Auto Ql (Bld) 0.2 /100{WBC} 0-0.5 [facility] Platelet mean volume Auto (B ld) [Entitic vol]Ordered By: Jun Gaona on 12-07-2022 Platelet mean volume (Bld) [Entitic vol] 8.1 fL 6.6-10.1 [facility] Platelets Auto (Bld) [#/Vol] Ordered By: Jun Gaona on 12-07-2022 Platelets (Bld) [#/Vol] 204 10*3/uL 150-450 [facility] Potassium [Moles/volume] in Serum or PlasmaOrdered By: Jun Gaona on 12-07-2022 Potassium [Moles/Vol] 4.0 mmol/L 3.5-5.1 [facility] Protein Auto test strip (U) [Mass/Vol]Ordered By: Jun Gaona on 12-07-2022 Protein (U) [Mass/Vol] Trace mg/dL Negative F [facility] RBC Auto (Bld) [#/Vol]Ordere d By: Jun Gaona on 12-07-2022 RBC (Bld) [#/Vol] 4.46 10*6/uL 3.90-5.60 [facility] Serum or plasma anion gap de terminationOrdered By: Jun Gaona on 12-07-2022 Anion gap [Moles/Vol] 8.4 mmol/L 6.0-15.0 [facility] Sodium [Moles/volume] in Ser um or PlasmaOrdered By: Jun Gaona on 12-07-2022 Sodium [Moles/Vol] 140 mmol/L 136-145 [facility] Specific gravity Auto test s trip (U) [Rel density]Ordered By: Jun Gaona on 12-07-2022 Specific gravity (U) [Rel density] 1.005 1.001-1.030 [facility] Urea nitrogen [Mass/volume] in Serum or PlasmaOrdered By: Jun Gaona on 12-07-2022 Urea nitrogen [Mass/Vol] 14 mg/dL 7-25 [facility] Urine Cultureon 12-07-2022 Bacteria identified Cx Nom (U) ORGANISM: Klebsiella pneumoniae (ESBL) (O:KLEPNEESBL) [place] Count >100,000 ORGANISM: Enterococcus faecalis (O:ENTFAC) [place] Count >100,000 Aerobic SCOTT Charge (NMIC56) ----- SUSCEPTIBILITY ---- ORGANISM: O:KLEPNEESBL ANTIBIOTIC INTERPRETATION SCOTT Amikacin S <16 Amoxacillin/K Clavulanate S <8 Ampicillin/Sulbactam I 1616/8 Aztreonam ESBL 8 Cefazolin R* >16 Cefepime R* <2 Ceftazidime ESBL 4 Ceftazidime/Avibacta m S <4 Ceftolozane/Tazobact am S <2 Ceftriaxone ESBL >32 Cefuroxime R* >16 Ciprofloxacin R >2 Ertapenem S <0.5 Gentamicin I 8 Levofloxacin R 2 Meropenem S <1 Meropenem/Vaborbacta m S <2 Nitrofurantoin I 64 Piperacillin/Tazobac alas S <8 Tetracycline R >8 Tigecycline S <2 Tobramycin R >8 Trimethoprim/Sulfame thoxazole R >2 Aerobic SCOTT Charge (PCMIC38) ----- SUSCEPTIBILITY ---- ORGANISM: O:ENTFAC ANTIBIOTIC INTERPRETATION SCOTT Ampicillin S <2 Ciprofloxacin R >2 Daptomycin S 1 Levofloxacin R >4 Linezolid S 2 Nitrofurantoin S <32 Tetracycline R >8 Vancomycin S 1 S = SUSCEPTIBLE I = INTERMEDIATE R = RESISTANT BLANK = DATA NOT AVAILABLE, OR DRUG NOT ADVISABLE OR TESTED R* = RESISTANCE DUE TO EXTENDED SPECTRUM BETA-LACTAMASES ESBL = EXTENDED SPECTRUM BETA-LACTAMASE TFG = THYMIDINE-DEPENDENT STRAIN ERASMO = BETA-LACTAMASE POSITIVE IB = INDUCIBLE BETA-LACTAMASE. APPEARS IN PLACE OF 'S' WITH SPECIES KNOWN TO POSSESS INDUCIBLE BETA-LACTAMASES. POTENTIALLY THEY MAY BECOME RESISTANT TO ALL B-LACTAM DRUGS. PERFORMED BY: [address] [place] [address] PATHOLOGIST METAPHYSICIAN RENETTA MONACO M.D. Normal [facility] Comment on above: Performed By: #### S CAN CBC, BMP #### [facility] [address] Urine bacteria detection by automated methodOrdered By: Jun Gaona on 12-07-2022 Bacteria Auto Ql (U) 3+ None Seen [facility] Urine clarity by refractomet ry automatedOrdered By: Jun Gaona on 12-07-2022 Clarity Refractometry automated (U) Turbid Clear [facility] Urine culture routineOrdered By: Jun Gaona on 12-07-2022 Bacteria identified Cx Nom (U) Klebsiella pneumoniae (ESBL) [facility] Bacteria identified Cx Nom (U) Enterococcus faecalis [facility] Bacteria identified Cx Nom (U) Klebsiella pneumoniae (ESBL) [facility] Bacteria identified Cx Nom (U) Enterococcus faecalis [facility] Urine glucose measurement by automated test strip (mass/volume)Ordered By: Jun Gaona on 12-07-2022 Glucose Auto test strip (U) [Mass/Vol] Normal mg/dL Normal [facility] Urine hemoglobin detection b y automated test stripOrdered By: Jun Gaona on 12-07-2022 Hemoglobin Auto test strip Ql (U) 2+ Negative [facility] Urine leukocyte esterase det ection by automated test stripOrdered By: Jun Gaona on 12-07-2022 Leukocyte esterase Auto test strip Ql (U) 4+ Negative [facility] Urobilinogen Auto test strip (U) [Mass/Vol]Ordered By: Jun Gaona on 12-07-2022 Urobilinogen (U) [Mass/Vol] Normal mg/dL Normal [facility] WBC Auto (Bld) [#/Vol]Ordere d By: Jun Gaona on 12-07-2022 WBC (Bld) [#/Vol] 4.1 10*3/uL 4.1-10.5 [facility] pH Auto test strip (U)Ordere d By: Jun aGona on 12-07-2022 pH (U) 7.5 [pH] 5.0-9.0 [facility] Bacteria Ur Culton 3 Bacteria identified Cx Nom (U) Abnormal [facility] Comment on above: Performed By: #### 6 30-4 ####[facility] LABCLIA [id number] [place] [address] [place] CNOVon 11-25-2022 CNOV Normal [facility] Urinalysis complete panel (U )on 11-25-2022 Bacteria LM.HPF (Urine sed) [#/Area] Moderate Abnormal None Seen [facility] Comment on above: Order Comment: Speci men Type: URINE SPECIMENOrdering Facility: [facility] Address: [address] [address] Performed By: #### 2 4356-8 ####[facility] LABCLIA [id number] [place] [address] [place] Bilirubin Ql (U) Negative Normal Negative [facility] Comment on above: Order Comment: Speci men Type: URINE SPECIMENOrdering Facility: [facility] Address: [address] [address] Performed By: #### 2 4356-8 ####[facility] LABCLIA [id number] [place] [address] [place] CALCIUM OXALATE CRYSTALS (UA) Few Abnormal None Seen [facility] Comment on above: Order Comment: Speci men Type: URINE SPECIMENOrdering Facility: [facility] Address: [address] Performed By: #### 2 4356-8 ####[facility] LABCLIA [id number] [place] [address] [place] Clarity (Unsp spec) Cloudy Abnormal Clear [facility] Comment on above: Order Comment: Speci men Type: URINE SPECIMENOrdering Facility: [facility] Address: [address] Performed By: #### 2 4356-8 ####[facility] LABCLIA [id number] [place] [address] [place] Color (U) Red Abnormal Yellow [facility] Comment on above: Order Comment: Speci men Type: URINE SPECIMENOrdering Facility: [facility] Address: [address] Performed By: #### 2 4356-8 ####[facility] LABCLIA [id number] [address] [place] Glucose Test strip (U) [Mass/Vol] Negative Normal Trace, Negative [facility] Comment on above: Order Comment: Speci men Type: URINE SPECIMENOrdering Facility: [facility] Address: [address] [place] [address] Performed By: #### 2 4356-8 ####[facility] LABCLIA [id number] [place] [address] [place] Hemoglobin Ql (U) 3+ Abnormal Negative, Trace [facility] Comment on above: Order Comment: Speci men Type: URINE SPECIMENOrdering Facility: [facility] Address: [address] Performed By: #### 2 4356-8 ####[facility] LABCLIA [id number] [place] [address] [place] Ketones Ql (U) Negative Normal Negative, Trace [facility] Comment on above: Order Comment: Speci men Type: URINE SPECIMENOrdering Facility: [facility] Address: [address] Performed By: #### 2 4356-8 ####[facility] LABCLIA [id number] [place] [address] [place] Leukocyte esterase Test strip Ql (U) 500 Arnulfo/uL Abnormal Negative, 25 Arnulfo/uL [facility] Comment on above: Order Comment: Speci men Type: URINE SPECIMENOrdering Facility: [facility] Address: [address] Performed By: #### 2 4356-8 ####[facility] LABIA [id number] [place] [address] [place] Nitrite Ql (U) 1+ Abnormal Negative [facility] Comment on above: Order Comment: Speci men Type: URINE SPECIMENOrdering Facility: [facility] Address: [address] [place] [address] Performed By: #### 2 4356-8 ####[facility] LABIA [id number] [place] [address] [place] pH (U) 7.0 [pH] Normal 5.0-8.0 [facility] Comment on above: Order Comment: Speci men Type: URINE SPECIMENOrdering Facility: [facility] Address: [address] [place] [address] Performed By: #### 2 4356-8 ####[facility] [id number] [address] [place] [facility] Protein (U) [Mass/Vol] 3+ Abnormal Trace , Negative [facility] Comment on above: Order Comment: Speci men Type: URINE SPECIMENOrdering Facility: [facility] Address: [address] [place] [address] Performed By: #### 2 4356-8 ####[facility] [id number] [place] [address] [place] RBC LM.HPF (Urine sed) [#/Area] /[HPF] Abnormal 0-3 /HPF [facility] Comment on above: Order Comment: Speci men Type: URINE SPECIMENOrdering Facility: [facility] Address: [address] [place] [address] Performed By: #### 2 4356-8 ####[facility] LABIA [id number] [place] [address] [place] Specific gravity (U) [Rel density] 1.008 Normal 1.005-1.030 [facility] Comment on above: Order Comment: Speci men Type: URINE SPECIMENOrdering Facility: [facility] Address: [address] [address] Performed By: #### 2 4356-8 ####[facility] LABCLIA [id number] [place] [address] [place] Urobilinogen Ql (U) Negative Normal Negative [facility] Comment on above: Order Comment: Speci men Type: URINE SPECIMENOrdering Facility: [facility] Address: [address] [address] Performed By: #### 2 4356-8 ####[facility] LABIA [id number] [place] [address] [place] WBC LM.HPF (Urine sed) [#/Area] /[HPF] Abnormal 0-5 /HPF [facility] Comment on above: Order Comment: Speci men Type: URINE SPECIMENOrdering Facility: [facility] Address: [address] [place] [address] Performed By: #### 2 4356-8 ####[facility] LABIA [id number] [place] [address] [place] CNPNon 11-12-2022 CNPN Normal [facility] CNOVon 10-27-2022 CNOV Normal [facility] XR ABDOMEN 1V SUPINEon 10-27 XR ABDOMEN 1V SUPINE Normal [facility] CNPNon 10-20-2022 CNPN Normal [facility] CNPNon 10-19-2022 CNPN Normal [facility] CASE MANAGEMon 10-14-2022 CASE MANAGEM Normal [facility] CASE MANAGEM Normal [facility] CNDSon 10-14-2022 CNDS Normal [facility] CONSULTon 10-14-2022 CONSULT Normal [facility] NURSING PROGon 10-14-2022 NURSING PROG Normal [facility] BRIEF OP NOTon 10-13-2022 BRIEF OP NOT Normal [facility] Basic metabolic 2000 panelon 10-13-2022 Anion gap [Moles/Vol] 10 mmol/L Normal 9-18 [facility] Comment on above: Order Comment: Speci men Type: BLOOD SPECIMENOrdering Facility: [facility] Address: [address] [place] [address] Performed By: #### 2 4321-2 ####[facility] LABCLIA [id number] [place] [address] [place] Calcium [Mass/Vol] 8.8 mg/dL Normal 8.5-10.2 [facility] Comment on above: Order Comment: Speci men Type: BLOOD SPECIMENOrdering Facility: [facility] Address: [address] [place] [address] Performed By: #### 2 4321-2 ####[facility] LABCLIA [id number] [place] [address] [place] Chloride [Moles/Vol] 108 mmol/L High 97-105 [facility] Comment on above: Order Comment: Speci men Type: BLOOD SPECIMENOrdering Facility: [facility] Address: [address] [place] [address] Performed By: #### 2 4321-2 ####[facility] LABCLIA [id number] [place] [address] [place] CO2 [Moles/Vol] 26 mmol/L Normal 22-30 [facility] Comment on above: Order Comment: Speci men Type: BLOOD SPECIMENOrdering Facility: [facility] Address: [address] [place], [place] [address] Performed By: #### 2 4321-2 ####[facility] LABCLIA [id number] [place] [address] [place] Creatinine [Mass/Vol] 0.94 mg/dL Normal 0.73-1.22 [facility] Comment on above: Order Comment: Speci men Type: BLOOD SPECIMENOrdering Facility: [facility] Address: [address] [place] [address] Performed By: #### 2 4321-2 ####[facility] LABCLIA [id number] [address] ESTIMATED GLOMERULAR FILTRATION RATE 89 mL/min/1.73m??? Normal >=60 [facility] Comment on above: Order Comment: Cierra cartwright Type: BLOOD SPECIMENOrdering Facility: [facility] Address: [address] [place] [address] Result Comment: Ignacia mated Glomerular Filtration Rate (eGFR) is calculated using the 2020 CKD-EPI creatinine equation. This equation utilizes serum creatinine, sex, and age as parameters. The creatinine assay has traceable calibration to isotope dilution-mass spectrometry. Refer to KDIGO guidelines for clinical interpretation. In patients with unstable renal function, e.g. those with acute kidney injury, the eGFR may not accurately reflect actual GFR. Performed By: #### 2 4321-2 ####[facility] [id number] [place] [address] [place] Glucose [Mass/Vol] 88 mg/dL Normal 74-99 [facility] Comment on above: Order Comment: Cierra cartwright Type: BLOOD SPECIMENOrdering Facility: [facility] Address: [address] [place] [address] Result Comment: The [place] Diabetes [employer] (ADA) provides guidance for cutoff values for fasting glucose and random glucose. The ADA defines fasting as no caloric intake for at least 8 hours. Fasting plasma glucose results between 100 to 125 mg/dL indicate increased risk for diabetes (prediabetes).Fasting plasma glucose results greater than or equal to 126 mg/dL meet the criteria for diagnosis of diabetes. In the absence of unequivocal hyperglycemia, results should be confirmed by repeat testing. In a patient with classic symptoms of hyperglycemia or hyperglycemic crisis, random plasma glucose results greater than or equal to 200 mg/dL meet the criteria for diagnosis of diabetes.Reference: Standards of Medical Care in Diabetes 2016, [place] [employer] Association. Diabetes Care. 2016.39(Suppl 1). Performed By: #### 2 4321-2 ####[facility] LABCLIA [id number] [place] [address] [place] Potassium [Moles/Vol] 3.8 mmol/L Normal 3.7-5.1 [facility] Comment on above: Order Comment: Speci men Type: BLOOD SPECIMENOrdering Facility: [facility] Address: [address] [place] [address] Performed By: #### 2 4321-2 ####[facility] LABCLIA [id number] [place] [address] [place] Sodium [Moles/Vol] 144 mmol/L Normal 136-144 [facility] Comment on above: Order Comment: Speci men Type: BLOOD SPECIMENOrdering Facility: [facility] Address: [address] [place] [address] Performed By: #### 2 4321-2 ####[facility] LABCLIA [id number] [place] [address] [place] Urea nitrogen [Mass/Vol] 9 mg/dL Normal 9-24 [facility] Comment on above: Order Comment: Speci men Type: BLOOD SPECIMENOrdering Facility: [facility] Address: [address] [place] [address] Performed By: #### 2 4321-2 ####[facility] LABCLIA [id number] [place] [address] [place] CASE MGT INIT ASSESon 2022 CASE MGT INIT ASSES Normal [facility] CBC panel Auto (Bld)on 10-13 Erythrocyte distribution width (RBC) [Ratio] 14.1 % Normal 11.5-15.0 [facility] Comment on above: Order Comment: Speci men Type: BLOOD SPECIMENOrdering Facility: [facility] Address: [address] [place] [address] Performed By: #### 5 8410-2 ####[facility] LABCLIA [id number] [address] [facility] Hematocrit (Bld) [Volume fraction] 27.1 % Low 39.0-51.0 [facility] Comment on above: Order Comment: Speci men Type: BLOOD SPECIMENOrdering Facility: [facility] Address: [address] [place] [address] Performed By: #### 5 8410-2 ####[facility] LABCLIA [id number] [address] [place] Hemoglobin (Bld) [Mass/Vol] 8.8 g/dL Low 13.0-17.0 [facility] Comment on above: Order Comment: Speci men Type: BLOOD SPECIMENOrdering Facility: [facility] Address: [address] [place] [address] Performed By: #### 5 8410-2 ####[facility] LABCLIA [id number] [address] [place] [facility] MCH (RBC) [Entitic mass] 27.7 pg Normal 26.0-34.0 [facility] Comment on above: Order Comment: Speci men Type: BLOOD SPECIMENOrdering Facility: [facility] Address: [address] [place] [address] Performed By: #### 5 8410-2 ####[facility] LABIA [id number] [address] OF [facility] MCHC (RBC) [Mass/Vol] 32.5 g/dL Normal 30.5-36.0 [facility] Comment on above: Order Comment: Speci men Type: BLOOD SPECIMENOrdering Facility: [facility] Address: [address] [place], [place] [address] Performed By: #### 5 8410-2 ####[facility] LABCLIA [id number] [address] [place] MCV (RBC) [Entitic vol] 85.2 fL Normal 80.0-100.0 C [facility] Comment on above: Order Comment: Speci men Type: BLOOD SPECIMENOrdering Facility: [facility] Address: [address] Performed By: #### 5 8410-2 ####[facility] LABIA [id number] [place] [address] [place] Nucleated RBC (Bld) [#/Vol] 10*3/uL Normal <0.01 [facility] Comment on above: Order Comment: Speci men Type: BLOOD SPECIMENOrdering Facility: [facility] Address: [address] Performed By: #### 5 8410-2 ####[facility] LABIA [id number] [place] [address] [place] Platelet mean volume (Bld) [Entitic vol] 10.0 fL Normal 9.0-12.7 [facility] Comment on above: Order Comment: Speci men Type: BLOOD SPECIMENOrdering Facility: [facility] Address: [address] Performed By: #### 5 8410-2 ####[facility] LABIA [id number] [place] [address] [place] Platelets (Bld) [#/Vol] 186 10*3/uL Normal 150-400 [facility] Comment on above: Order Comment: Speci men Type: BLOOD SPECIMENOrdering Facility: [facility] Address: [address] Performed By: #### 5 8410-2 ####[facility] LABIA [id number] [place] [address] [place] RBC (Bld) [#/Vol] 3.18 10*6/uL Low 4.20-6.00 [facility] Comment on above: Order Comment: Speci men Type: BLOOD SPECIMENOrdering Facility: [facility] Address: [address] Performed By: #### 5 8410-2 ####[facility] LABCLIA [id number] [place] [address] [place] WBC (Bld) [#/Vol] 4.95 10*3/uL Normal 3.70-11.00 [facility] Comment on above: Order Comment: Speci men Type: BLOOD SPECIMENOrdering Facility: [facility] Address: [address] [place], [place] Performed By: #### 5 8410-2 ####[facility] LABCLIA [id number] [place] [address] [place] CONSULT PROGon 10-13-2022 CONSULT PROG Normal [facility] IR LINE REMOVAL CONSULTon IR LINE REMOVAL CONSULT Normal C [facility] THERAPY NTon 10-13-2022 THERAPY NT Normal [facility] THERAPY NT Normal [facility] Basic metabolic 2000 panelon 10-12-2022 Anion gap [Moles/Vol] 7 mmol/L Low 9-18 [facility] Comment on above: Order Comment: Speci men Type: BLOOD SPECIMENOrdering Facility: [facility] Address: [place], [place] Performed By: #### 2 4321-2 ####[facility] LABCLIA [id number] [place] [address] [place] Calcium [Mass/Vol] 8.7 mg/dL Normal 8.5-10.2 [facility] Comment on above: Order Comment: Speci men Type: BLOOD SPECIMENOrdering Facility: [facility] Address: [place] [address] Performed By: #### 2 4321-2 ####[facility] LABCLIA [id number] [place] [address] [place] Chloride [Moles/Vol] 102 mmol/L Normal 97-105 [facility] Comment on above: Order Comment: Speci men Type: BLOOD SPECIMENOrdering Facility: [facility] Address: [address] [address] Performed By: #### 2 4321-2 ####[facility] LABCLIA [id number] [address] [place] CO2 [Moles/Vol] 25 mmol/L Normal 22-30 [facility] Comment on above: Order Comment: Speci men Type: BLOOD SPECIMENOrdering Facility: [facility] Address: [address] [address] Performed By: #### 2 4321-2 ####[facility] LABIA [id number] [address] STATES OF [facility] Creatinine [Mass/Vol] 0.86 mg/dL Normal 0.73-1.22 [facility] Comment on above: Order Comment: Speci men Type: BLOOD SPECIMENOrdering Facility: [facility] Address: [address] [place] [address] Performed By: #### 2 4321-2 ####[facility] LABIA [id number] [address] [place] ESTIMATED GLOMERULAR FILTRATION RATE 95 mL/min/1.73m??? Normal >=60 [facility] Comment on above: Order Comment: Speci men Type: BLOOD SPECIMENOrdering Facility: [facility] Address: [address] [place] [address] Result Comment: Ignacia mated Glomerular Filtration Rate (eGFR) is calculated using the 2020 CKD-EPI creatinine equation. This equation utilizes serum creatinine, sex, and age as parameters. The creatinine assay has traceable calibration to isotope dilution-mass spectrometry. Refer to KDIGO guidelines for clinical interpretation. In patients with unstable renal function, e.g. those with acute kidney injury, the eGFR may not accurately reflect actual GFR. Performed By: #### 2 4321-2 ####[facility] LABCLIA [id number] [place] [address] [place] Glucose [Mass/Vol] 136 mg/dL High 74-99 [facility] Comment on above: Order Comment: Speci men Type: BLOOD SPECIMENOrdering Facility: [facility] Address: [address] [address] Result Comment: The [place] Diabetes Association (ADA) provides guidance for cutoff values for fasting glucose and random glucose. The ADA defines fasting as no caloric intake for at least 8 hours. Fasting plasma glucose results between 100 to 125 mg/dL indicate increased risk for diabetes (prediabetes).Fasting plasma glucose results greater than or equal to 126 mg/dL meet the criteria for diagnosis of diabetes. In the absence of unequivocal hyperglycemia, results should be confirmed by repeat testing. In a patient with classic symptoms of hyperglycemia or hyperglycemic crisis, random plasma glucose results greater than or equal to 200 mg/dL meet the criteria for diagnosis of diabetes.Reference: Standards of Medical Care in Diabetes 2016, [place] Diabetes Association. Diabetes Care. 2016.39(Suppl 1). Performed By: #### 2 4321-2 ####[facility] LABCLIA [id number] [place] [address] [place] Potassium [Moles/Vol] 4.3 mmol/L Normal 3.7-5.1 [facility] Comment on above: Order Comment: Speci men Type: BLOOD SPECIMENOrdering Facility: [facility] Address: [address] [address] Performed By: #### 2 4321-2 ####[facility] LABCLIA [id number] [place] [address] [place] Sodium [Moles/Vol] 134 mmol/L Low 136-144 [facility] Comment on above: Order Comment: Speci men Type: BLOOD SPECIMENOrdering Facility: [facility] Address: [address] [address] Performed By: #### 2 4321-2 ####[facility] LABCLIA [id number] [place] [address] [place] Urea nitrogen [Mass/Vol] 12 mg/dL Normal 9-24 [facility] Comment on above: Order Comment: Speci men Type: BLOOD SPECIMENOrdering Facility: [facility] Address: [address] [place] [address] Performed By: #### 2 4321-2 ####[facility] LABIA [id number] [place] [address] [place] CBC panel Auto (Bld)on 10-12 Erythrocyte distribution width (RBC) [Ratio] 13.7 % Normal 11.5-15.0 [facility] Comment on above: Order Comment: Speci men Type: BLOOD SPECIMENOrdering Facility: [facility] Address: [address] [place] [address] Performed By: #### 5 8410-2 ####[facility] LABIA [id number] [place] [address] [place] Hematocrit (Bld) [Volume fraction] 30.7 % Low 39.0-51.0 [facility] Comment on above: Order Comment: Speci men Type: BLOOD SPECIMENOrdering Facility: [facility] Address: [address] [place] [address] Performed By: #### 5 8410-2 ####[facility] LABIA [id number] [place] [address] [place] Hemoglobin (Bld) [Mass/Vol] 9.8 g/dL Low 13.0-17.0 [facility] Comment on above: Order Comment: Speci men Type: BLOOD SPECIMENOrdering Facility: [facility] Address: [address] [place] [address] Performed By: #### 5 8410-2 ####[facility] LABIA [id number] [place] [address] [place] MCH (RBC) [Entitic mass] 27.3 pg Normal 26.0-34.0 [facility] Comment on above: Order Comment: Speci men Type: BLOOD SPECIMENOrdering Facility: [facility] Address: [address] Performed By: #### 5 8410-2 ####[facility] LABIA [id number] [address] STATES [facility] MCHC (RBC) [Mass/Vol] 31.9 g/dL Normal 30.5-36.0 [facility] Comment on above: Order Comment: Speci men Type: BLOOD SPECIMENOrdering Facility: [facility] Address: [address] Performed By: #### 5 8410-2 ####[facility] LABIA [id number] [place] [address] [place] MCV (RBC) [Entitic vol] 85.5 fL Normal 80.0-100.0 [facility] Comment on above: Order Comment: Speci men Type: BLOOD SPECIMENOrdering Facility: [facility] Address: [address] Performed By: #### 5 8410-2 ####[facility] LABIA [id number] [place] [address] [place] Nucleated RBC (Bld) [#/Vol] 10*3/uL Normal <0.01 [facility] Comment on above: Order Comment: Speci men Type: BLOOD SPECIMENOrdering Facility: [facility] Address: [address] [place] [address] Performed By: #### 5 8410-2 ####[facility] LABIA [id number] [place] [address] [place] Platelet mean volume (Bld) [Entitic vol] 10.3 fL Normal 9.0-12.7 [facility] Comment on above: Order Comment: Speci men Type: BLOOD SPECIMENOrdering Facility: [facility] Address: [address] [place], [place] [address] Performed By: #### 5 8410-2 ####[facility] LABIA [id number] [place] [address] [place] Platelets (Bld) [#/Vol] 218 10*3/uL Normal 150-400 [facility] Comment on above: Order Comment: Speci men Type: BLOOD SPECIMENOrdering Facility: [facility] Address: [address] [place] [address] Performed By: #### 5 8410-2 ####[facility] LABIA [id number] [place] [address] [place] RBC (Bld) [#/Vol] 3.59 10*6/uL Low 4.20-6.00 [facility] Comment on above: Order Comment: Speci men Type: BLOOD SPECIMENOrdering Facility: [facility] Address: [address] [place] [address] Performed By: #### 5 8410-2 ####[facility] [id number] [place] [address] [place] WBC (Bld) [#/Vol] 11.23 10*3/uL High 3.70-11.00 [facility] Comment on above: Order Comment: Speci men Type: BLOOD SPECIMENOrdering Facility: [facility] Address: [address] [place] [address] Performed By: #### 5 8410-2 ####[facility] [id number] [place] [address] [place] CONSULT PROGon 10-12-2022 CONSULT PROG Normal [facility] NURSING PROGon 10-12-2022 NURSING PROG Normal [facility] ANES POSTPROC EVALon 023 ANES POSTPROC EVAL Normal [facility] ANES PRE-OPon 10-11-2022 ANES PRE-OP Normal [facility] BRIEF OP NOTon 10-11-2022 BRIEF OP NOT Normal [facility] Bacteria Ur Culton 07-17-202 3 Bacteria identified Cx Nom (U) CULTURE, URINE: No growth (<100 CFU/ml) Normal [facility] Comment on above: Performed By: #### 6 30-4 ####[facility] LABCLIA [id number] [place] [address] [place] Basic metabolic 2000 panelon 10-11-2022 Anion gap [Moles/Vol] 9 mmol/L Normal 9-18 [facility] Comment on above: Order Comment: Speci men Type: BLOOD SPECIMENOrdering Facility: [facility] Address: [address] [address] Performed By: #### 2 4321-2 ####[facility] LABIA [id number] [place] [address] [place] Calcium [Mass/Vol] 9.0 mg/dL Normal 8.5-10.2 [facility] Comment on above: Order Comment: Speci men Type: BLOOD SPECIMENOrdering Facility: [facility] Address: [address] Performed By: #### 2 4321-2 ####[facility] LABIA [id number] [place] [address] [place] Chloride [Moles/Vol] 106 mmol/L High 97-105 [facility] Comment on above: Order Comment: Speci men Type: BLOOD SPECIMENOrdering Facility: [facility] Address: [address] [place] [address] Performed By: #### 2 4321-2 ####[facility] LABCLIA [id number] [place] [address] [place] CO2 [Moles/Vol] 24 mmol/L Normal 22-30 [facility] Comment on above: Order Comment: Speci men Type: BLOOD SPECIMENOrdering Facility: [facility] Address: [address] [place] [address] Performed By: #### 2 4321-2 ####[facility] LABCLIA [id number] [place] [address] [place] Creatinine [Mass/Vol] 0.88 mg/dL Normal 0.73-1.22 [facility] Comment on above: Order Comment: Cierra cartwright Type: BLOOD SPECIMENOrdering Facility: [facility] Address: [address] [address] Performed By: #### 2 4321-2 ####[facility] LABIA [id number] [address] [place] ESTIMATED GLOMERULAR FILTRATION RATE 94 mL/min/1.73m??? Normal >=60 [facility] Comment on above: Order Comment: Cierra cartwright Type: BLOOD SPECIMENOrdering Facility: [facility] Address: [address] [place] [address] Result Comment: Ignacia mated Glomerular Filtration Rate (eGFR) is calculated using the 2020 CKD-EPI creatinine equation. This equation utilizes serum creatinine, sex, and age as parameters. The creatinine assay has traceable calibration to isotope dilution-mass spectrometry. Refer to KDIGO guidelines for clinical interpretation. In patients with unstable renal function, e.g. those with acute kidney injury, the eGFR may not accurately reflect actual GFR. Performed By: #### 2 4321-2 ####[facility] LABCLIA [id number] [place] [address] [place] Glucose [Mass/Vol] 101 mg/dL High 74-99 [facility] Comment on above: Order Comment: Cierra cartwright Type: BLOOD SPECIMENOrdering Facility: [facility] Address: [address] [place] [address] Result Comment: The [place] Diabetes Association (ADA) provides guidance for cutoff values for fasting glucose and random glucose. The ADA defines fasting as no caloric intake for at least 8 hours. Fasting plasma glucose results between 100 to 125 mg/dL indicate increased risk for diabetes (prediabetes).Fasting plasma glucose results greater than or equal to 126 mg/dL meet the criteria for diagnosis of diabetes. In the absence of unequivocal hyperglycemia, results should be confirmed by repeat testing. In a patient with classic symptoms of hyperglycemia or hyperglycemic crisis, random plasma glucose results greater than or equal to 200 mg/dL meet the criteria for diagnosis of diabetes.Reference: Standards of Medical Care in Diabetes 2016, [place] Diabetes Association. Diabetes Care. 2016.39(Suppl 1). Performed By: #### 2 4321-2 ####[facility] LABCLIA [id number] [place] [address] [place] Potassium [Moles/Vol] 4.1 mmol/L Normal 3.7-5.1 [facility] Comment on above: Order Comment: Speci men Type: BLOOD SPECIMENOrdering Facility: [facility] Address: [address] [address] Performed By: #### 2 4321-2 ####[facility] LABCLIA [id number] [place] [address] [place] Sodium [Moles/Vol] 139 mmol/L Normal 136-144 [facility] Comment on above: Order Comment: Speci men Type: BLOOD SPECIMENOrdering Facility: [facility] Address: [address] [address] Performed By: #### 2 4321-2 ####[facility] LABCLIA [id number] [place] [address] [place] Urea nitrogen [Mass/Vol] 8 mg/dL Low 9-24 [facility] Comment on above: Order Comment: Speci men Type: BLOOD SPECIMENOrdering Facility: [facility] Address: [address] Performed By: #### 2 4321-2 ####[facility] LABCLIA [id number] [place] [address] [place] Anion gap [Moles/Vol] 7 mmol/L Low 9-18 [facility] Comment on above: Order Comment: Speci men Type: BLOOD SPECIMENOrdering Facility: [facility] Address: [address] Performed By: #### 2 4321-2 ####[facility] LABCLIA [id number] [place] [address] [place] Calcium [Mass/Vol] 9.0 mg/dL Normal 8.5-10.2 [facility] Comment on above: Order Comment: Speci men Type: BLOOD SPECIMENOrdering Facility: [facility] Address: [address] [place], [place] [address] Performed By: #### 2 4321-2 ####[facility] LABCLIA [id number] [place] [address] [place] Chloride [Moles/Vol] 107 mmol/L High 97-105 [facility] Comment on above: Order Comment: Speci men Type: BLOOD SPECIMENOrdering Facility: [facility] Address: [address] [place], [place] [address] Performed By: #### 2 4321-2 ####[facility] LABCLIA [id number] [place] [address] [place] CO2 [Moles/Vol] 25 mmol/L Normal 22-30 [facility] Comment on above: Order Comment: Speci men Type: BLOOD SPECIMENOrdering Facility: [facility] Address: [address] [place], [place] [address] Performed By: #### 2 4321-2 ####[facility] LABCLIA [id number] [place] [address] [place] Creatinine [Mass/Vol] 0.82 mg/dL Normal 0.73-1.22 [facility] Comment on above: Order Comment: Speci men Type: BLOOD SPECIMENOrdering Facility: [facility] Address: [address] [place], [place] [address] Performed By: #### 2 4321-2 ####[facility] LABCLIA [id number] [place] [address] [place] ESTIMATED GLOMERULAR FILTRATION RATE 96 mL/min/1.73m??? Normal >=60 [facility] Comment on above: Order Comment: Cierra cartwright Type: BLOOD SPECIMENOrdering Facility: [facility] Address: [address] [place] [address] Result Comment: Ignacia mated Glomerular Filtration Rate (eGFR) is calculated using the 2020 CKD-EPI creatinine equation. This equation utilizes serum creatinine, sex, and age as parameters. The creatinine assay has traceable calibration to isotope dilution-mass spectrometry. Refer to KDIGO guidelines for clinical interpretation. In patients with unstable renal function, e.g. those with acute kidney injury, the eGFR may not accurately reflect actual GFR. Performed By: #### 2 4321-2 ####[facility] LABIA [id number] [place] [address] [place] Glucose [Mass/Vol] 85 mg/dL Normal 74-99 [facility] Comment on above: Order Comment: Cierra cartwright Type: BLOOD SPECIMENOrdering Facility: [facility] Address: [address] [place] [address] Result Comment: The [place] Diabetes Association (ADA) provides guidance for cutoff values for fasting glucose and random glucose. The ADA defines fasting as no caloric intake for at least 8 hours. Fasting plasma glucose results between 100 to 125 mg/dL indicate increased risk for diabetes (prediabetes).Fasting plasma glucose results greater than or equal to 126 mg/dL meet the criteria for diagnosis of diabetes. In the absence of unequivocal hyperglycemia, results should be confirmed by repeat testing. In a patient with classic symptoms of hyperglycemia or hyperglycemic crisis, random plasma glucose results greater than or equal to 200 mg/dL meet the criteria for diagnosis of diabetes.Reference: Standards of Medical Care in Diabetes 2016, [place] Diabetes Association. Diabetes Care. 2016.39(Suppl 1). Performed By: #### 2 4321-2 ####[facility] [id number] [place] [address] [place] Potassium [Moles/Vol] 3.7 mmol/L Normal 3.7-5.1 [facility] Comment on above: Order Comment: Cierra cartwright Type: BLOOD SPECIMENOrdering Facility: [facility] Address: [address] [address] Performed By: #### 2 4321-2 ####[facility] LABCLIA [id number] [place] [address] [place] Sodium [Moles/Vol] 139 mmol/L Normal 136-144 [facility] Comment on above: Order Comment: Speci men Type: BLOOD SPECIMENOrdering Facility: [facility] Address: [address] [place] [address] Performed By: #### 2 4321-2 ####[facility] LABCLIA [id number] [address] [place] Urea nitrogen [Mass/Vol] 8 mg/dL Low 9-24 [facility] Comment on above: Order Comment: Speci men Type: BLOOD SPECIMENOrdering Facility: [facility] Address: [address] [place] [address] Performed By: #### 2 4321-2 ####[facility] LABIA [id number] [address] [place] CALCULI ANALYSISon 3 Calculus analysis [Interp] Normal [facility] Comment on above: Order Comment: Speci men Type: CALCULUS SPECIMENOrdering Facility: [facility] Address: [address] [place] [address] Result Comment: This test was developed and its performance characteristics determined by [facility]). It has not been cleared or approved by the FDA. [facility] is regulated under CLIA as qualified to perform high-complexity testing. This test is used for clinical purposes. It should not be regarded as investigational or for research. Performed By: #### C SA ####[facility] LABCLIA [id number] [address] [place] CALCULUS COLOR WHITE Normal [facility] Comment on above: Order Comment: Speci men Type: CALCULUS SPECIMENOrdering Facility: [facility] Address: [address] [place] [address] Performed By: #### C SA ####[facility] LABCLIA [id number] [address] [place] CALCULUS COMPOSITION 1 100% Calcium Phosphate Normal [facility] Comment on above: Order Comment: Speci men Type: CALCULUS SPECIMENOrdering Facility: [facility] Address: [address] [place] [address] Performed By: #### C SA ####[facility] LABIA [id number] [address] [place] CALCULUS SIZE AND WT Multiple pieces. 0.1902 GRAMS Normal [facility] Comment on above: Order Comment: Speci men Type: CALCULUS SPECIMENOrdering Facility: [facility] Address: [address] [place] [address] Performed By: #### C SA ####[facility] LABIA [id number] [address] [place] CALCULUS TYPE CALCULI/CALCULUS Normal [facility] Comment on above: Order Comment: Speci men Type: CALCULUS SPECIMENOrdering Facility: [facility] Address: [address] [place] [address] Performed By: #### C SA ####[facility] LABIA [id number] [place] [address] [place] CBC W Auto Differential pane l (Bld)on 10-11-2022 Basophils (Bld) [#/Vol] 0.03 10*3/uL Normal <0.11 [facility] Comment on above: Order Comment: Speci men Type: BLOOD SPECIMENOrdering Facility: [facility] Address: [address] [place] [address] Performed By: #### 5 7021-8 ####[facility] LABIA [id number] [address] [place] Basophils/100 WBC (Bld) 0.4 % Normal C [facility] Comment on above: Order Comment: Speci men Type: BLOOD SPECIMENOrdering Facility: [facility] Address: [address] [place] [address] Performed By: #### 5 7021-8 ####[facility] LABCLIA [id number] [place] [address] [place] Differential cell count method Nom (Bld) Auto Normal [facility] Comment on above: Order Comment: Speci men Type: BLOOD SPECIMENOrdering Facility: [facility] Address: [address] [place] [address] Performed By: #### 5 7021-8 ####[facility] LABCLIA [id number] [place] [address] [place] Eosinophils (Bld) [#/Vol] 0.07 10*3/uL Normal <0.46 [facility] Comment on above: Order Comment: Speci men Type: BLOOD SPECIMENOrdering Facility: [facility] Address: [address] [place], [place] [address] Performed By: #### 5 7021-8 ####[facility] LABCLIA [id number] [address] STATES OF [facility] Eosinophils/100 WBC (Bld) 0.9 % Normal [facility] Comment on above: Order Comment: Speci men Type: BLOOD SPECIMENOrdering Facility: [facility] Address: [address] [place], [place] [address] Performed By: #### 5 7021-8 ####[facility] LABCLIA [id number] [place] [place] [address] [place] Erythrocyte distribution width (RBC) [Ratio] 14.1 % Normal 11.5-15.0 [facility] Comment on above: Order Comment: Speci men Type: BLOOD SPECIMENOrdering Facility: [facility] Address: [address] Performed By: #### 5 7021-8 ####[facility] LABCLIA [id number] [place] [address] [place] Hematocrit (Bld) [Volume fraction] 32.0 % Low 39.0-51.0 [facility] Comment on above: Order Comment: Speci men Type: BLOOD SPECIMENOrdering Facility: [facility] Address: [address] Performed By: #### 5 7021-8 ####[facility] LABIA [id number] [place] [address] [place] Hemoglobin (Bld) [Mass/Vol] 10.2 g/dL Low 13.0-17.0 [facility] Comment on above: Order Comment: Speci men Type: BLOOD SPECIMENOrdering Facility: [facility] Address: [address] [place], [place] [address] Performed By: #### 5 7021-8 ####[facility] LABIA [id number] [place] [address] [place] Immature granulocytes (Bld) [#/Vol] 0.05 10*3/uL Normal <0.10 [facility] Comment on above: Order Comment: Speci men Type: BLOOD SPECIMENOrdering Facility: [facility] Address: [address] Performed By: #### 5 7021-8 ####[facility] LABIA [id number] [place] [address] [place] Immature granulocytes/100 WBC (Bld) 0.6 % Normal [facility] Comment on above: Order Comment: Speci men Type: BLOOD SPECIMENOrdering Facility: [facility] Address: [address] [place], [place] [address] Performed By: #### 5 7021-8 ####[facility] LABCLIA [id number] [place] [address] [place] Lymphocytes (Bld) [#/Vol] 0.32 10*3/uL Low 1.00-4.00 [facility] Comment on above: Order Comment: Speci men Type: BLOOD SPECIMENOrdering Facility: [facility] Address: [address] [place] [address] Performed By: #### 5 7021-8 ####[facility] LABCLIA [id number] [address] [place] Lymphocytes/100 WBC (Bld) 4.0 % Normal [facility] Comment on above: Order Comment: Speci men Type: BLOOD SPECIMENOrdering Facility: [facility] Address: [address] [place] [address] Performed By: #### 5 7021-8 ####[facility] LABCLIA [id number] [place] [address] [place] MCH (RBC) [Entitic mass] 27.4 pg Normal 26.0-34.0 [facility] Comment on above: Order Comment: Speci men Type: BLOOD SPECIMENOrdering Facility: [facility] Address: [address] [place] [address] Performed By: #### 5 7021-8 ####[facility] LABIA [id number] [place] [address] [place] MCHC (RBC) [Mass/Vol] 31.9 g/dL Normal 30.5-36.0 [facility] Comment on above: Order Comment: Speci men Type: BLOOD SPECIMENOrdering Facility: [facility] Address: [address] [place], [place] [address] Performed By: #### 5 7021-8 ####[facility] LABCLIA [id number] [place] [address] [place] MCV (RBC) [Entitic vol] 86.0 fL Normal 80.0-100.0 [facility] Comment on above: Order Comment: Speci men Type: BLOOD SPECIMENOrdering Facility: [facility] Address: [address] Performed By: #### 5 7021-8 ####[facility] LABCLIA [id number] [place] [address] [place] Monocytes (Bld) [#/Vol] 0.08 10*3/uL Normal <0.87 [facility] Comment on above: Order Comment: Speci men Type: BLOOD SPECIMENOrdering Facility: [facility] Address: [address] Performed By: #### 5 7021-8 ####[facility] LABCLIA [id number] [place] [address] [place] Monocytes/100 WBC (Bld) 1.0 % Normal [facility] Comment on above: Order Comment: Speci men Type: BLOOD SPECIMENOrdering Facility: [facility] Address: [address] Performed By: #### 5 7021-8 ####[facility] LABCLIA [id number] [place] [address] [place] Neutrophils (Bld) [#/Vol] 7.39 10*3/uL Normal 1.45-7.50 [facility] Comment on above: Order Comment: Speci men Type: BLOOD SPECIMENOrdering Facility: [facility] Address: [address] Performed By: #### 5 7021-8 ####[facility] LABCLIA [id number] [place] [address] [place] Neutrophils/100 WBC (Bld) 93.1 % Normal [facility] Comment on above: Order Comment: Speci men Type: BLOOD SPECIMENOrdering Facility: [facility] Address: [address] Performed By: #### 5 7021-8 ####[facility] LABCLIA [id number] [place] [address] [place] Nucleated RBC (Bld) [#/Vol] 10*3/uL Normal <0.01 [facility] Comment on above: Order Comment: Speci men Type: BLOOD SPECIMENOrdering Facility: [facility] Address: [address] [place] [address] Performed By: #### 5 7021-8 ####[facility] LABCLIA [id number] [place] [address] [place] Nucleated RBC/100 WBC (Bld) [Ratio] 0.0 /100 WBC Normal [facility] Comment on above: Order Comment: Speci men Type: BLOOD SPECIMENOrdering Facility: [facility] Address: [address] [place] [address] Performed By: #### 5 7021-8 ####[facility] LABIA [id number] [place] [address] [place] Platelet mean volume (Bld) [Entitic vol] 9.3 fL Normal 9.0-12.7 [facility] Comment on above: Order Comment: Speci men Type: BLOOD SPECIMENOrdering Facility: [facility] Address: [address] [place], [place] [address] Performed By: #### 5 7021-8 ####[facility] LABIA [id number] [place] [address] [place] Platelets (Bld) [#/Vol] 212 10*3/uL Normal 150-400 [facility] Comment on above: Order Comment: Speci men Type: BLOOD SPECIMENOrdering Facility: [facility] Address: [address] [place], [place] [address] Performed By: #### 5 7021-8 ####[facility] LABCLIA [id number] [place] [address] [place] RBC (Bld) [#/Vol] 3.72 10*6/uL Low 4.20-6.00 [facility] Comment on above: Order Comment: Speci men Type: BLOOD SPECIMENOrdering Facility: [facility] Address: [address] [place], [place] [address] Performed By: #### 5 7021-8 ####[facility] LABCLIA [id number] [place] [address] [place] WBC (Bld) [#/Vol] 7.94 10*3/uL Normal 3.70-11.00 [facility] Comment on above: Order Comment: Speci men Type: BLOOD SPECIMENOrdering Facility: [facility] Address: [address] [place], [place] [address] Performed By: #### 5 7021-8 ####[facility] LABCLIA [id number] [place] [address] [place] CBC panel Auto (Bld)on 10-11 Erythrocyte distribution width (RBC) [Ratio] 14.1 % Normal 11.5-15.0 [facility] Comment on above: Order Comment: Speci men Type: BLOOD SPECIMENOrdering Facility: [facility] Address: [address] [place], [place] [address] Performed By: #### 5 8410-2 ####[facility] LABCLIA [id number] [place] [address] [place] Hematocrit (Bld) [Volume fraction] 29.1 % Low 39.0-51.0 [facility] Comment on above: Order Comment: Speci men Type: BLOOD SPECIMENOrdering Facility: [facility] Address: [address] [place], [place] [address] Performed By: #### 5 8410-2 ####[facility] LABCLIA [id number] [place] [address] [place] Hemoglobin (Bld) [Mass/Vol] 9.3 g/dL Low 13.0-17.0 [facility] Comment on above: Order Comment: Speci men Type: BLOOD SPECIMENOrdering Facility: [facility] Address: [address] [address] Performed By: #### 5 8410-2 ####[facility] LABIA [id number] [address] [place] MCH (RBC) [Entitic mass] 27.2 pg Normal 26.0-34.0 [facility] Comment on above: Order Comment: Speci men Type: BLOOD SPECIMENOrdering Facility: [facility] Address: [address] [address] Performed By: #### 5 8410-2 ####[facility] LABIA [id number] [address] [place] MCHC (RBC) [Mass/Vol] 32.0 g/dL Normal 30.5-36.0 [facility] Comment on above: Order Comment: Speci men Type: BLOOD SPECIMENOrdering Facility: [facility] Address: [address] [place] [address] Performed By: #### 5 8410-2 ####[facility] LABIA [id number] [address] [place] MCV (RBC) [Entitic vol] 85.1 fL Normal 80.0-100.0 [facility] Comment on above: Order Comment: Speci men Type: BLOOD SPECIMENOrdering Facility: [facility] Address: [address] Performed By: #### 5 8410-2 ####[facility] LABIA [id number] [address] [place] Nucleated RBC (Bld) [#/Vol] 10*3/uL Normal <0.01 [facility] Comment on above: Order Comment: Speci men Type: BLOOD SPECIMENOrdering Facility: [facility] Address: [address] [place], [place] [address] Performed By: #### 5 8410-2 ####[facility] LABCLIA [id number] [place] [address] [place] Platelet mean volume (Bld) [Entitic vol] 9.6 fL Normal 9.0-12.7 [facility] Comment on above: Order Comment: Speci men Type: BLOOD SPECIMENOrdering Facility: [facility] Address: [address] [place], [place] [address] Performed By: #### 5 8410-2 ####[facility] LABCLIA [id number] [place] [address] [place] Platelets (Bld) [#/Vol] 221 10*3/uL Normal 150-400 [facility] Comment on above: Order Comment: Speci men Type: BLOOD SPECIMENOrdering Facility: [facility] Address: [address] [place], [place] [address] Performed By: #### 5 8410-2 ####[facility] LABIA [id number] [place] [address] [place] RBC (Bld) [#/Vol] 3.42 10*6/uL Low 4.20-6.00 [facility] Comment on above: Order Comment: Speci men Type: BLOOD SPECIMENOrdering Facility: [facility] Address: [address] [place], [place] [address] Performed By: #### 5 8410-2 ####[facility] LABCLIA [id number] [place] [address] [place] WBC (Bld) [#/Vol] 4.18 10*3/uL Normal 3.70-11.00 [facility] Comment on above: Order Comment: Speci men Type: BLOOD SPECIMENOrdering Facility: [facility] Address: [address] [place], [place] [address] Performed By: #### 5 8410-2 ####[facility] LABCLIA [id number] [place] [address] [place] CONSULTon 10-11-2022 CONSULT Normal [facility] NURSING PROGon 10-11-2022 NURSING PROG Normal [facility] NURSING PROG Normal [facility] NUTRITIONon 10-11-2022 NUTRITION Normal [facility] OPERATIVE NOon 10-11-2022 OPERATIVE NO Normal [facility] XR CHEST 1V FRONTAL PORTon 0 10-11-2022 XR CHEST 1V FRONTAL PORT Normal [facility] ALLIED HEALTHon 10-10-2022 ALLIED HEALTH Normal [facility] Basic metabolic 2000 panelon 10-10-2022 Anion gap [Moles/Vol] 12 mmol/L Normal 9-18 [facility] Comment on above: Order Comment: Speci men Type: BLOOD SPECIMENOrdering Facility: [facility] Address: [address] [place] [address] Performed By: #### 2 4321-2 ####[facility] LABCLIA [id number] [place] [address] [place] Calcium [Mass/Vol] 9.4 mg/dL Normal 8.5-10.2 [facility] Comment on above: Order Comment: Speci men Type: BLOOD SPECIMENOrdering Facility: [facility] Address: [address] [place] [address] Performed By: #### 2 4321-2 ####[facility] LABCLIA [id number] [place] [address] [place] Chloride [Moles/Vol] 106 mmol/L High 97-105 [facility] Comment on above: Order Comment: Speci men Type: BLOOD SPECIMENOrdering Facility: [facility] Address: [address] [place], [place] [address] Performed By: #### 2 4321-2 ####[facility] LABCLIA [id number] [place] [address] [place] CO2 [Moles/Vol] 22 mmol/L Normal 22-30 [facility] Comment on above: Order Comment: Speci men Type: BLOOD SPECIMENOrdering Facility: [facility] Address: [address] [address] Performed By: #### 2 4321-2 ####[facility] LABIA [id number] [place] [address] [place] Creatinine [Mass/Vol] 0.74 mg/dL Normal 0.73-1.22 [facility] Comment on above: Order Comment: Speci men Type: BLOOD SPECIMENOrdering Facility: [facility] Address: [address] [address] Performed By: #### 2 4321-2 ####[facility] LABIA [id number] [address] [place] ESTIMATED GLOMERULAR FILTRATION RATE 99 mL/min/1.73m??? Normal >=60 [facility] Comment on above: Order Comment: Speci men Type: BLOOD SPECIMENOrdering Facility: [facility] Address: [address] [place] [address] Result Comment: Ignacia mated Glomerular Filtration Rate (eGFR) is calculated using the 2020 CKD-EPI creatinine equation. This equation utilizes serum creatinine, sex, and age as parameters. The creatinine assay has traceable calibration to isotope dilution-mass spectrometry. Refer to KDIGO guidelines for clinical interpretation. In patients with unstable renal function, e.g. those with acute kidney injury, the eGFR may not accurately reflect actual GFR. Performed By: #### 2 4321-2 ####[facility] LABIA [id number] [place] [address] [place] Glucose [Mass/Vol] 90 mg/dL Normal 74-99 [facility] Comment on above: Order Comment: Speci men Type: BLOOD SPECIMENOrdering Facility: [facility] Address: [address] [place] [address] Result Comment: The [place] Diabetes [employer] (ADA) provides guidance for cutoff values for fasting glucose and random glucose. The ADA defines fasting as no caloric intake for at least 8 hours. Fasting plasma glucose results between 100 to 125 mg/dL indicate increased risk for diabetes (prediabetes).Fasting plasma glucose results greater than or equal to 126 mg/dL meet the criteria for diagnosis of diabetes. In the absence of unequivocal hyperglycemia, results should be confirmed by repeat testing. In a patient with classic symptoms of hyperglycemia or hyperglycemic crisis, random plasma glucose results greater than or equal to 200 mg/dL meet the criteria for diagnosis of diabetes.Reference: Standards of Medical Care in Diabetes 2016, [place] [employer]. Diabetes Care. 2016.39(Suppl 1). Performed By: #### 2 4321-2 ####[facility] LABIA [id number] [place] [address] [place] Potassium [Moles/Vol] 3.6 mmol/L Low 3.7-5.1 [facility] Comment on above: Order Comment: Speci men Type: BLOOD SPECIMENOrdering Facility: [facility] Address: [address] [place] [address] Performed By: #### 2 4321-2 ####[facility] LABIA [id number] [place] [address] [place] Sodium [Moles/Vol] 140 mmol/L Normal 136-144 [facility] Comment on above: Order Comment: Speci men Type: BLOOD SPECIMENOrdering Facility: [facility] Address: [address] [place] [address] Performed By: #### 2 1-2 ####[facility] LABIA [id number] [place] [address] [place] Urea nitrogen [Mass/Vol] 7 mg/dL Low 9-24 [facility] Comment on above: Order Comment: Speci men Type: BLOOD SPECIMENOrdering Facility: [facility] Address: [address] [address] Performed By: #### 2 4321-2 ####[facility] LABIA [id number] [place] [address] [place] CBC W Auto Differential pane l (Bld)on 10-10-2022 Basophils (Bld) [#/Vol] 0.05 10*3/uL Normal <0.11 [facility] Comment on above: Order Comment: Speci men Type: BLOOD SPECIMENOrdering Facility: [facility] Address: [address] [place] [address] Performed By: #### 5 7021-8 ####[facility] LABCLIA [id number] [address] Basophils/100 WBC (Bld) 0.7 % Normal [facility] Comment on above: Order Comment: Speci men Type: BLOOD SPECIMENOrdering Facility: [facility] Address: [address] [place] [address] Performed By: #### 5 7021-8 ####[facility] LABCLIA [id number] [address] STATES OF [facility] Differential cell count method Nom (Bld) Auto Normal [facility] Comment on above: Order Comment: Speci men Type: BLOOD SPECIMENOrdering Facility: [facility] Address: [address] [place], [place] [address] Performed By: #### 5 7021-8 ####[facility] LABCLIA [id number] [address] [place] Eosinophils (Bld) [#/Vol] 0.26 10*3/uL Normal <0.46 [facility] Comment on above: Order Comment: Speci men Type: BLOOD SPECIMENOrdering Facility: [facility] Address: [address] [place], [place] [address] Performed By: #### 5 7021-8 ####[facility] LABCLIA [id number] [address] Eosinophils/100 WBC (Bld) 3.6 % Normal [facility] Comment on above: Order Comment: Speci men Type: BLOOD SPECIMENOrdering Facility: [facility] Address: [address] [address] Performed By: #### 5 7021-8 ####[facility] LABCLIA [id number] [place] [address] [place] Erythrocyte distribution width (RBC) [Ratio] 14.0 % Normal 11.5-15.0 [facility] Comment on above: Order Comment: Speci men Type: BLOOD SPECIMENOrdering Facility: [facility] Address: [address] [address] Performed By: #### 5 7021-8 ####[facility] LABCLIA [id number] [place] [address] [place] Hematocrit (Bld) [Volume fraction] 32.2 % Low 39.0-51.0 [facility] Comment on above: Order Comment: Speci men Type: BLOOD SPECIMENOrdering Facility: [facility] Address: [address] [place], [place] [address] Performed By: #### 5 7021-8 ####[facility] LABCLIA [id number] [place] [address] [place] Hemoglobin (Bld) [Mass/Vol] 10.4 g/dL Low 13.0-17.0 [facility] Comment on above: Order Comment: Speci men Type: BLOOD SPECIMENOrdering Facility: [facility] Address: [address] [place], [place] [address] Performed By: #### 5 7021-8 ####[facility] LABCLIA [id number] [place] [address] [place] Immature granulocytes (Bld) [#/Vol] 0.03 10*3/uL Normal <0.10 [facility] Comment on above: Order Comment: Speci men Type: BLOOD SPECIMENOrdering Facility: [facility] Address: [address] [place], [place] [address] Performed By: #### 5 7021-8 ####[facility] LABCLIA [id number] [place] [address] [place] Immature granulocytes/100 WBC (Bld) 0.4 % Normal [facility] Comment on above: Order Comment: Speci men Type: BLOOD SPECIMENOrdering Facility: [facility] Address: [address] [place] [address] Performed By: #### 5 7021-8 ####[facility] LABCLIA [id number] [place] [address] [place] Lymphocytes (Bld) [#/Vol] 2.29 10*3/uL Normal 1.00-4.00 [facility] Comment on above: Order Comment: Speci men Type: BLOOD SPECIMENOrdering Facility: [facility] Address: [address] [place] [address] Performed By: #### 5 7021-8 ####[facility] LABCLIA [id number] [place] [address] [place] Lymphocytes/100 WBC (Bld) 31.4 % Normal [facility] Comment on above: Order Comment: Speci men Type: BLOOD SPECIMENOrdering Facility: [facility] Address: [address] [place] [address] Performed By: #### 5 7021-8 ####[facility] LABCLIA [id number] [place] [address] [place] MCH (RBC) [Entitic mass] 27.4 pg Normal 26.0-34.0 [facility] Comment on above: Order Comment: Speci men Type: BLOOD SPECIMENOrdering Facility: [facility] Address: [address] [place], [place] [address] Performed By: #### 5 7021-8 ####[facility] LABCLIA [id number] [place] [address] [place] MCHC (RBC) [Mass/Vol] 32.3 g/dL Normal 30.5-36.0 [facility] Comment on above: Order Comment: Speci men Type: BLOOD SPECIMENOrdering Facility: [facility] Address: [address] Performed By: #### 5 7021-8 ####[facility] LABIA [id number] [place] [address] [place] MCV (RBC) [Entitic vol] 84.7 fL Normal 80.0-100.0 [facility] Comment on above: Order Comment: Speci men Type: BLOOD SPECIMENOrdering Facility: [facility] Address: [address] Performed By: #### 5 7021-8 ####[facility] LABIA [id number] [place] [address] [place] Monocytes (Bld) [#/Vol] 0.72 10*3/uL Normal <0.87 [facility] Comment on above: Order Comment: Speci men Type: BLOOD SPECIMENOrdering Facility: [facility] Address: [address] [place], [place] [address] Performed By: #### 5 7021-8 ####[facility] LABIA [id number] [place] [address] [place] Monocytes/100 WBC (Bld) 9.9 % Normal [facility] Comment on above: Order Comment: Speci men Type: BLOOD SPECIMENOrdering Facility: [facility] Address: [address] Performed By: #### 5 7021-8 ####[facility] LABIA [id number] [place] [address] [place] Neutrophils (Bld) [#/Vol] 3.94 10*3/uL Normal 1.45-7.50 [facility] Comment on above: Order Comment: Speci men Type: BLOOD SPECIMENOrdering Facility: [facility] Address: [address] Performed By: #### 5 7021-8 ####[facility] LABCLIA [id number] [place] [address] [place] Neutrophils/100 WBC (Bld) 54.0 % Normal [facility] Comment on above: Order Comment: Speci men Type: BLOOD SPECIMENOrdering Facility: [facility] Address: [address] [place], [place] [address] Performed By: #### 5 7021-8 ####[facility] LABCLIA [id number] [place] [address] [place] Nucleated RBC (Bld) [#/Vol] 10*3/uL Normal <0.01 [facility] Comment on above: Order Comment: Speci men Type: BLOOD SPECIMENOrdering Facility: [facility] Address: [address] [place], [place] [address] Performed By: #### 5 7021-8 ####[facility] LABIA [id number] [place] [address] [place] Nucleated RBC/100 WBC (Bld) [Ratio] 0.0 /100 WBC Normal [facility] Comment on above: Order Comment: Speci men Type: BLOOD SPECIMENOrdering Facility: [facility] Address: [address] [place], [place] [address] Performed By: #### 5 7021-8 ####[facility] LABIA [id number] [place] [address] [place] Platelet mean volume (Bld) [Entitic vol] 10.0 fL Normal 9.0-12.7 [facility] Comment on above: Order Comment: Speci men Type: BLOOD SPECIMENOrdering Facility: [facility] Address: [address] [place], [place] [address] Performed By: #### 5 7021-8 ####[facility] LABIA [id number] [place] [address] [place] Platelets (Bld) [#/Vol] 246 10*3/uL Normal 150-400 [facility] Comment on above: Order Comment: Speci men Type: BLOOD SPECIMENOrdering Facility: [facility] Address: [address] [place], [place] [address] Performed By: #### 5 7021-8 ####[facility] LABCLIA [id number] [place] [address] [place] RBC (Bld) [#/Vol] 3.80 10*6/uL Low 4.20-6.00 [facility] Comment on above: Order Comment: Speci men Type: BLOOD SPECIMENOrdering Facility: [facility] Address: [address] [place] [address] Performed By: #### 5 7021-8 ####[facility] LABCLIA [id number] [place] [address] [place] WBC (Bld) [#/Vol] 7.29 10*3/uL Normal 3.70-11.00 [facility] Comment on above: Order Comment: Speci men Type: BLOOD SPECIMENOrdering Facility: [facility] Address: [address] [place], [place] [address] Performed By: #### 5 7021-8 ####[facility] LABCLIA [id number] [place] [address] [place] XR CHEST 1V FRONTAL PORTon 0 10-10-2022 XR CHEST 1V FRONTAL PORT Normal [facility] HISTORY PHYSICALon HISTORY PHYSICAL Normal [facility] CASE MANAGEMon 09-26-2022 CASE MANAGEM Normal [facility] CNDSon 09-26-2022 CNDS Normal [facility] Renal function 2000 panelon 09-26-2022 Albumin [Mass/Vol] 3.3 g/dL Low 3.9-4.9 [facility] Comment on above: Order Comment: Speci men Type: BLOOD SPECIMENOrdering Facility: [facility] Address: [address] [place] [address] [place] [address] Performed By: #### 2 4362-6 ####[facility] LABCLIA [id number] [place] [address] [place] Anion gap [Moles/Vol] 9 mmol/L Normal 9-18 [facility] Comment on above: Order Comment: Speci men Type: BLOOD SPECIMENOrdering Facility: [facility] Address: [address] [place] [address] Performed By: #### 2 4362-6 ####[facility] LABCLIA [id number] [place] [address] [place] Calcium [Mass/Vol] 9.0 mg/dL Normal 8.5-10.2 [facility] Comment on above: Order Comment: Speci men Type: BLOOD SPECIMENOrdering Facility: [facility] Address: [address] Performed By: #### 2 4362-6 ####[facility] LABCLIA [id number] [place] [address] [place] Chloride [Moles/Vol] 105 mmol/L Normal 97-105 [facility] Comment on above: Order Comment: Speci men Type: BLOOD SPECIMENOrdering Facility: [facility] Address: [address] [place] [address] Performed By: #### 2 4362-6 ####[facility] LABCLIA [id number] [place] [address] [place] CO2 [Moles/Vol] 23 mmol/L Normal 22-30 [facility] Comment on above: Order Comment: Speci men Type: BLOOD SPECIMENOrdering Facility: [facility] Address: [address] Performed By: #### 2 4362-6 ####[facility] LABCLIA [id number] [place] [address] [place] Creatinine [Mass/Vol] 0.74 mg/dL Normal 0.73-1.22 [facility] Comment on above: Order Comment: Cierra cartwright Type: BLOOD SPECIMENOrdering Facility: [facility] Address: [address] [place] [phone] Performed By: #### 2 4362-6 ####[facility] LABCLIA [id number] [address] [facility] ESTIMATED GLOMERULAR FILTRATION RATE 99 mL/min/1.73m??? Normal >=60 [facility] Comment on above: Order Comment: Cierra cartwright Type: BLOOD SPECIMENOrdering Facility: [facility] Address: [address] [place] [address] Result Comment: Ignacia mated Glomerular Filtration Rate (eGFR) is calculated using the 2020 CKD-EPI creatinine equation. This equation utilizes serum creatinine, sex, and age as parameters. The creatinine assay has traceable calibration to isotope dilution-mass spectrometry. Refer to KDIGO guidelines for clinical interpretation. In patients with unstable renal function, e.g. those with acute kidney injury, the eGFR may not accurately reflect actual GFR. Performed By: #### 2 4362-6 ####[facility] LABCLIA [id number] [address] [place] Glucose [Mass/Vol] 104 mg/dL High 74-99 [facility] Comment on above: Order Comment: Cierra cartwright Type: BLOOD SPECIMENOrdering Facility: [facility] Address: [address] [place] [phone] Result Comment: The [place] Diabetes Association (ADA) provides guidance for cutoff values for fasting glucose and random glucose. The ADA defines fasting as no caloric intake for at least 8 hours. Fasting plasma glucose results between 100 to 125 mg/dL indicate increased risk for diabetes (prediabetes).Fasting plasma glucose results greater than or equal to 126 mg/dL meet the criteria for diagnosis of diabetes. In the absence of unequivocal hyperglycemia, results should be confirmed by repeat testing. In a patient with classic symptoms of hyperglycemia or hyperglycemic crisis, random plasma glucose results greater than or equal to 200 mg/dL meet the criteria for diagnosis of diabetes.Reference: Standards of Medical Care in Diabetes 2016, [place] Diabetes Association. Diabetes Care. 2016.39(Suppl 1). Performed By: #### 2 4362-6 ####[facility] LABCLIA [id number] [place] [address] [place] Phosphate [Mass/Vol] 2.6 mg/dL Low 2.7-4.8 [facility] Comment on above: Order Comment: Speci men Type: BLOOD SPECIMENOrdering Facility: [facility] Address: [address] Performed By: #### 2 4362-6 ####[facility] LABCLIA [id number] [place] [address] [place] Potassium [Moles/Vol] 3.9 mmol/L Normal 3.7-5.1 [facility] Comment on above: Order Comment: Speci men Type: BLOOD SPECIMENOrdering Facility: [facility] Address: [address] Performed By: #### 2 4362-6 ####[facility] LABCLIA [id number] [place] [address] [place] Sodium [Moles/Vol] 137 mmol/L Normal 136-144 [facility] Comment on above: Order Comment: Speci men Type: BLOOD SPECIMENOrdering Facility: [facility] Address: [address] [place] [address] Performed By: #### 2 4362-6 ####[facility] LABCLIA [id number] [place] [id number] [place] Urea nitrogen [Mass/Vol] 5 mg/dL Low 9-24 [facility] Comment on above: Order Comment: Speci men Type: BLOOD SPECIMENOrdering Facility: [facility] Address: [address] Performed By: #### 2 4362-6 ####[facility] LABCLIA [id number] [place] [address] [place] CASE MANAGEMon 09-25-2022 CASE MANAGEM Normal [facility] NURSING PROGon 09-25-2022 NURSING PROG Normal [facility] Renal function 2000 panelon 09-25-2022 Albumin [Mass/Vol] 3.1 g/dL Low 3.9-4.9 [facility] Comment on above: Order Comment: Speci men Type: BLOOD SPECIMENOrdering Facility: [facility] Address: [address] Performed By: #### 2 4362-6, 8 ####[facility] LABIA [id number] [place] [address] [place] Anion gap [Moles/Vol] 10 mmol/L Normal 9-18 [facility] Comment on above: Order Comment: Speci men Type: BLOOD SPECIMENOrdering Facility: [facility] Address: [address] Performed By: #### 2 4362-6, 8 ####[facility] LABIA [id number] [place] [address] [place] Calcium [Mass/Vol] 8.7 mg/dL Normal 8.5-10.2 [facility] Comment on above: Order Comment: Speci men Type: BLOOD SPECIMENOrdering Facility: [facility] Address: [address] [place] [address] Performed By: #### 2 4362-6, 8 ####[facility] LABIA [id number] [place] [address] [place] Chloride [Moles/Vol] 106 mmol/L High 97-105 [facility] Comment on above: Order Comment: Speci men Type: BLOOD SPECIMENOrdering Facility: [facility] Address: [address] Performed By: #### 2 4362-, 2571-8 ####[facility] LABCLIA [id number] [place] [address] [place] CO2 [Moles/Vol] 23 mmol/L Normal 22-30 [facility] Comment on above: Order Comment: Speci men Type: BLOOD SPECIMENOrdering Facility: [facility] Address: [address] [place] [address] Performed By: #### 2 4362-6, 2570-10 ####[facility] LABIA [id number] [place] [address] [place] Creatinine [Mass/Vol] 0.73 mg/dL Normal 0.73-1.22 [facility] Comment on above: Order Comment: Speci men Type: BLOOD SPECIMENOrdering Facility: [facility] Address: [address] [place] [address] Performed By: #### 2 4362-6, 2570-10 ####[facility] [id number] [address] [place] ESTIMATED GLOMERULAR FILTRATION RATE 100 mL/min/1.73m??? Normal >=60 [facility] Comment on above: Order Comment: Speci men Type: BLOOD SPECIMENOrdering Facility: [facility] Address: [address] [place] [address] Result Comment: Ignacia mated Glomerular Filtration Rate (eGFR) is calculated using the 2020 CKD-EPI creatinine equation. This equation utilizes serum creatinine, sex, and age as parameters. The creatinine assay has traceable calibration to isotope dilution-mass spectrometry. Refer to KDIGO guidelines for clinical interpretation. In patients with unstable renal function, e.g. those with acute kidney injury, the eGFR may not accurately reflect actual GFR. Performed By: #### 2 4362-6, 2570-10 ####[facility] LABIA [id number] [place] [address] [place] Glucose [Mass/Vol] 83 mg/dL Normal 74-99 [facility] Comment on above: Order Comment: Speci men Type: BLOOD SPECIMENOrdering Facility: [facility] Address: [address] [place], [place] [address] Result Comment: The [place] Diabetes Association (ADA) provides guidance for cutoff values for fasting glucose and random glucose. The ADA defines fasting as no caloric intake for at least 8 hours. Fasting plasma glucose results between 100 to 125 mg/dL indicate increased risk for diabetes (prediabetes).Fasting plasma glucose results greater than or equal to 126 mg/dL meet the criteria for diagnosis of diabetes. In the absence of unequivocal hyperglycemia, results should be confirmed by repeat testing. In a patient with classic symptoms of hyperglycemia or hyperglycemic crisis, random plasma glucose results greater than or equal to 200 mg/dL meet the criteria for diagnosis of diabetes.Reference: Standards of Medical Care in Diabetes 2016, [place] Diabetes Association. Diabetes Care. 2016.39(Suppl 1). Performed By: #### 2 4362-6, 2570-10 ####[facility] LABCLIA [id number] [place] [address] [place] Phosphate [Mass/Vol] 2.6 mg/dL Low 2.7-4.8 [facility] Comment on above: Order Comment: Cierra cartwright Type: BLOOD SPECIMENOrdering Facility: [facility] Address: [address] [place], [place] [address] Performed By: #### 2 4362-6, 2570-10 ####[facility] LABCLIA [id number] [place] [address] [place] Potassium [Moles/Vol] 4.1 mmol/L Normal 3.7-5.1 [facility] Comment on above: Order Comment: Cierra cartwright Type: BLOOD SPECIMENOrdering Facility: [facility] Address: [address] [place], [place] [address] Performed By: #### 2 4362-6, 2570-10 ####[facility] LABCLIA [id number] [place] [address] [place] Sodium [Moles/Vol] 139 mmol/L Normal 136-144 [facility] Comment on above: Order Comment: Speci men Type: BLOOD SPECIMENOrdering Facility: [facility] Address: [address] [place] [address] Performed By: #### 2 436-6, 2570-10 ####[facility] LABCLIA [id number] [place] [address] [place] Urea nitrogen [Mass/Vol] 7 mg/dL Low 9-24 [facility] Comment on above: Order Comment: Speci men Type: BLOOD SPECIMENOrdering Facility: [facility] Address: [address] [place] [address] Performed By: #### 2 436-6, 2570-10 ####[facility] LABCLIA [id number] [address] [place] Trigl SerPl-mCncon Triglyceride [Mass/Vol] 172 mg/dL High <150 [facility] Comment on above: Order Comment: Speci men Type: BLOOD SPECIMENOrdering Facility: [facility] Address: [address] [place] [address] Result Comment: <150 mg/dL, Normal 150-199 mg/dL, Borderline high 200-499 mg/dL, High>499 mg/dL, Very highReference:1. National Cholesterol Education Program ATP III Guideline At-A-Glance Quick Desk Reference: National Heart, Lung, and Blood Richardson. National Institutes of Health. 2001: NIH Publication No. 01-3305. Performed By: #### 2 4362-6, 2570-10 ####[facility] LABCLIA [id number] [address] [place] Triglyceride [Mass/Vol]on FASTING TIME 8 hrs Normal [facility] Comment on above: Order Comment: Speci men Type: BLOOD SPECIMENOrdering Facility: [facility] Address: [address] Performed By: #### 2 436-6, 2570-10 ####[facility] LABCLIA [id number] [place] [address] [place] XR ABDOMEN 1V SUPINEon 09-25 XR ABDOMEN 1V SUPINE Normal [facility] BRIEF OP NOTon 09-24-2022 BRIEF OP NOT Normal [facility] CASE MANAGEMon 09-24-2022 CASE MANAGEM Normal [facility] CASE MANAGEM Normal [facility] CONSULT PROGon 09-24-2022 CONSULT PROG Normal [facility] IR CENTRAL CATH PLACEMENTon 09-24-2022 IR CENTRAL CATH PLACEMENT Normal [facility] Magnesium SerPl-mCncon 09-24 Magnesium [Mass/Vol] 2.0 mg/dL Normal 1.7-2.3 [facility] Comment on above: Order Comment: Speci men Type: BLOOD SPECIMENOrdering Facility: [facility] Address: [address] [place] [address] Performed By: #### 1 9123-9, 46349-8 ####[facility] LABIA [id number] [place] [address] [place] PT EDon 09-24-2022 PT ED Normal [facility] Renal function 2000 panelon 09-24-2022 Albumin [Mass/Vol] 2.9 g/dL Low 3.9-4.9 [facility] Comment on above: Order Comment: Speci men Type: BLOOD SPECIMENOrdering Facility: [facility] Address: [address] Performed By: #### 1 9123-9, 45233-8 ####[facility] LABIA [id number] [place] [address] [place] Anion gap [Moles/Vol] 7 mmol/L Low 9-18 [facility] Comment on above: Order Comment: Speci men Type: BLOOD SPECIMENOrdering Facility: [facility] Address: [address] Performed By: #### 1 9123-9, 57239-6 ####[facility] LABCLIA [id number] [place] [address] [place] Calcium [Mass/Vol] 8.6 mg/dL Normal 8.5-10.2 [facility] Comment on above: Order Comment: Speci men Type: BLOOD SPECIMENOrdering Facility: [facility] Address: [address] [place] [address] Performed By: #### 1 9123-9, 14930-2 ####[facility] LABCLIA [id number] [place] [address] [place] Chloride [Moles/Vol] 106 mmol/L High 97-105 [facility] Comment on above: Order Comment: Speci men Type: BLOOD SPECIMENOrdering Facility: [facility] Address: [address] [place] [address] Performed By: #### 1 91239, ####[facility] LABCLIA [id number] [place] [address] [place] CO2 [Moles/Vol] 24 mmol/L Normal 22-30 [facility] Comment on above: Order Comment: Speci men Type: BLOOD SPECIMENOrdering Facility: [facility] Address: [address] [place] [address] Performed By: #### 1 9123-9, ####[facility] LABCLIA [id number] [place] [address] [place] Creatinine [Mass/Vol] 0.71 mg/dL Low 0.73-1.22 [facility] Comment on above: Order Comment: Speci men Type: BLOOD SPECIMENOrdering Facility: [facility] Address: [address] [place] [address] Performed By: #### 1 9123-9, 77223-1 ####[facility] LABCLIA [id number] [place] [address] [id number] [address] [place] ESTIMATED GLOMERULAR FILTRATION RATE 101 mL/min/1.73m??? Normal >=60 [facility] Comment on above: Order Comment: Cierra cartwright Type: BLOOD SPECIMENOrdering Facility: [facility] Address: [address] [place], [place] [address] Result Comment: Ignacia mated Glomerular Filtration Rate (eGFR) is calculated using the 2020 CKD-EPI creatinine equation. This equation utilizes serum creatinine, sex, and age as parameters. The creatinine assay has traceable calibration to isotope dilution-mass spectrometry. Refer to KDIGO guidelines for clinical interpretation. In patients with unstable renal function, e.g. those with acute kidney injury, the eGFR may not accurately reflect actual GFR. Performed By: #### 1 9123-9, 19416-4 ####[facility] LABCLIA [id number] [place] [address] [place] Glucose [Mass/Vol] 96 mg/dL Normal 74-99 [facility] Comment on above: Order Comment: Cierra cartwright Type: BLOOD SPECIMENOrdering Facility: [facility] Address: [address] [place] [address] Result Comment: The [place] Diabetes Association (ADA) provides guidance for cutoff values for fasting glucose and random glucose. The ADA defines fasting as no caloric intake for at least 8 hours. Fasting plasma glucose results between 100 to 125 mg/dL indicate increased risk for diabetes (prediabetes).Fasting plasma glucose results greater than or equal to 126 mg/dL meet the criteria for diagnosis of diabetes. In the absence of unequivocal hyperglycemia, results should be confirmed by repeat testing. In a patient with classic symptoms of hyperglycemia or hyperglycemic crisis, random plasma glucose results greater than or equal to 200 mg/dL meet the criteria for diagnosis of diabetes.Reference: Standards of Medical Care in Diabetes 2016, [place] Diabetes Association. Diabetes Care. 2016.39(Suppl 1). Performed By: #### 1 9123-9, 18451-6 ####[facility] LABCLIA [id number] [place] [address] [place] Phosphate [Mass/Vol] 3.2 mg/dL Normal 2.7-4.8 [facility] Comment on above: Order Comment: Speci men Type: BLOOD SPECIMENOrdering Facility: [facility] Address: [address] [place] [address] Performed By: #### 1 9123-9, 30049-5 ####[facility] LABIA [id number] [place] [address] [place] Potassium [Moles/Vol] 3.9 mmol/L Normal 3.7-5.1 [facility] Comment on above: Order Comment: Speci men Type: BLOOD SPECIMENOrdering Facility: [facility] Address: [address] [place] [address] Performed By: #### 1 9123-9, 83537-5 ####[facility] [id number] [place] [address] [place] Sodium [Moles/Vol] 137 mmol/L Normal 136-144 [facility] Comment on above: Order Comment: Speci men Type: BLOOD SPECIMENOrdering Facility: [facility] Address: [address] [place] [address] Performed By: #### 1 9123-9, ####[facility] [id number] [place] [address] [place] Urea nitrogen [Mass/Vol] 9 mg/dL Normal 9-24 [facility] Comment on above: Order Comment: Speci men Type: BLOOD SPECIMENOrdering Facility: [facility] Address: [address] [place] [address] Performed By: #### 1 9123-9, 67638-2 ####[facility] [id number] [place] [address] [place] SARS-CoV-2 RNA Resp Ql ROSSANA+p laith 09-24-2022 SARS-CoV-2 (COVID-19) RNA ROSSANA+probe Ql (Resp) COVID 19 RESULT: Not detected The method used is RT-PCR or an equivalent NAAT method. Reference Range(the expected result in uninfected individuals): Not detected Normal [facility] Comment on above: Performed By: #### 9 4500-6 ####[facility] LABIA [id number] [place] [address] [place] THERAPY NTon 09-24-2022 THERAPY NT Normal [facility] XR ABDOMEN 1V SUPINEon 09-24 XR ABDOMEN 1V SUPINE Normal [facility] CASE MANAGEMon 09-23-2022 CASE MANAGEM Normal [facility] CONSULT PROGon 09-23-2022 CONSULT PROG Normal [facility] THERAPY NTon 09-23-2022 THERAPY NT Normal [facility] THERAPY NT Normal [facility] XR ABDOMEN 1V SUPINEon 09-23 XR ABDOMEN 1V SUPINE Normal [facility] ALLIED HEALTHon 09-22-2022 ALLIED HEALTH Normal [facility] Bacteria Bld Culton 09-23-19 23 Bacteria identified Cx Nom (Bld) CULTURE, BLOOD: No growth 5 days Normal [facility] Comment on above: Performed By: #### 6 00-7 ####[facility] LABIA [id number] [place] [address] [place] CASE MGT INIT ASSESon 2022 CASE MGT INIT ASSES Normal [facility] CBC panel Auto (Bld)on 09-22 Erythrocyte distribution width (RBC) [Ratio] 13.8 % Normal 11.5-15.0 [facility] Comment on above: Order Comment: Speci men Type: BLOOD SPECIMENOrdering Facility: [facility] Address: [address] [place] [address] Performed By: #### 5 8410-2 ####[facility] LABIA [id number] [place] [address] [place] Hematocrit (Bld) [Volume fraction] 30.0 % Low 39.0-51.0 [facility] Comment on above: Order Comment: Speci men Type: BLOOD SPECIMENOrdering Facility: [facility] Address: [address] [address] Performed By: #### 5 8410-2 ####[facility] LABIA [id number] [place] [address] [place] Hemoglobin (Bld) [Mass/Vol] 9.7 g/dL Low 13.0-17.0 [facility] Comment on above: Order Comment: Speci men Type: BLOOD SPECIMENOrdering Facility: [facility] Address: [address] [address] Performed By: #### 5 8410-2 ####[facility] LABIA [id number] [place] [address] [place] MCH (RBC) [Entitic mass] 27.7 pg Normal 26.0-34.0 [facility] Comment on above: Order Comment: Speci men Type: BLOOD SPECIMENOrdering Facility: [facility] Address: [address] Performed By: #### 5 8410-2 ####[facility] [id number] [place] [address] [place] MCHC (RBC) [Mass/Vol] 32.3 g/dL Normal 30.5-36.0 [facility] Comment on above: Order Comment: Speci men Type: BLOOD SPECIMENOrdering Facility: [facility] Address: [address] Performed By: #### 5 8410-2 ####[facility] LABIA [id number] [place] [address] [place] MCV (RBC) [Entitic vol] 85.7 fL Normal 80.0-100.0 [facility] Comment on above: Order Comment: Speci men Type: BLOOD SPECIMENOrdering Facility: [facility] Address: [address] [place], [place] [address] Performed By: #### 5 8410-2 ####[facility] LABCLIA [id number] [place] [address] [place] Nucleated RBC (Bld) [#/Vol] 0.02 10*3/uL High <0.01 [facility] Comment on above: Order Comment: Speci men Type: BLOOD SPECIMENOrdering Facility: [facility] Address: [address] [place] [address] Performed By: #### 5 8410-2 ####[facility] LABIA [id number] [place] [address] [place] Platelet mean volume (Bld) [Entitic vol] 10.9 fL Normal 9.0-12.7 [facility] Comment on above: Order Comment: Speci men Type: BLOOD SPECIMENOrdering Facility: [facility] Address: [address] [place] [address] Performed By: #### 5 8410-2 ####[facility] LABIA [id number] [place] [address] [place] Platelets (Bld) [#/Vol] 137 10*3/uL Low 150-400 [facility] Comment on above: Order Comment: Speci men Type: BLOOD SPECIMENOrdering Facility: [facility] Address: [address] [place] [address] Result Comment: Resu lts checked and verified.No clot detected. Performed By: #### 5 8410-2 ####[facility] LABIA [id number] [place] [address] [place] RBC (Bld) [#/Vol] 3.50 10*6/uL Low 4.20-6.00 [facility] Comment on above: Order Comment: Speci men Type: BLOOD SPECIMENOrdering Facility: [facility] Address: [address] [place] [address] Performed By: #### 5 8410-2 ####[facility] LABCLIA [id number] [place] [address] [place] WBC (Bld) [#/Vol] 6.05 10*3/uL Normal 3.70-11.00 [facility] Comment on above: Order Comment: Speci men Type: BLOOD SPECIMENOrdering Facility: [facility] Address: [address] [place] [address] Performed By: #### 5 8410-2 ####[facility] LABIA [id number] [place] [address] [place] CONSULTon 09-22-2022 CONSULT Normal [facility] CONSULT PROGon 09-22-2022 CONSULT PROG Normal [facility] Comprehensive metabolic 2000 panelon 09-22-2022 Albumin [Mass/Vol] 3.0 g/dL Low 3.9-4.9 [facility] Comment on above: Order Comment: Speci men Type: BLOOD SPECIMENOrdering Facility: [facility] Address: [address] [place], [place] [address] Performed By: #### 2 4323-8, 2777-1, 2571-8, 21971-0 ####[facility] LABIA [id number] [address] [place] ALP [Catalytic activity/Vol] 53 U/L Normal 38-113 [facility] Comment on above: Order Comment: Speci men Type: BLOOD SPECIMENOrdering Facility: [facility] Address: [address] [place], [place] [address] Performed By: #### 2 4323-8, 2777-1, 2571-8, 89460-1 ####[facility] LABIA [id number] [place] [address] [place] ALT [Catalytic activity/Vol] 18 U/L Normal 10-54 [facility] Comment on above: Order Comment: Speci men Type: BLOOD SPECIMENOrdering Facility: [facility] Address: [address] [place], [place] [address] Performed By: #### 2 4323-8, 2777-1, 2571-8, 07853-3 ####[facility] LABCLIA [id number] [place] [id number] [place] Anion gap [Moles/Vol] 9 mmol/L Normal 9-18 [facility] Comment on above: Order Comment: Speci men Type: BLOOD SPECIMENOrdering Facility: [facility] Address: [address] [place] [address] Performed By: #### 2 4323-8, 2777-1, 257-8, 56203-8 ####[facility] LABIA [id number] [place] [address] [place] AST [Catalytic activity/Vol] 16 U/L Normal 14-40 [facility] Comment on above: Order Comment: Speci men Type: BLOOD SPECIMENOrdering Facility: [facility] Address: [address] [place] [address] Performed By: #### 2 4323-8, 2777-1, 257-8, 95959-6 ####[facility] LABIA [id number] [place] [address] [place] Bilirubin [Mass/Vol] 0.9 mg/dL Normal 0.2-1.3 [facility] Comment on above: Order Comment: Speci men Type: BLOOD SPECIMENOrdering Facility: [facility] Address: [address] [place] [address] Performed By: #### 2 4323-8, 2777-1, 257-8, 36923-5 ####[facility] LABIA [id number] [place] [address] [place] Calcium [Mass/Vol] 8.9 mg/dL Normal 8.5-10.2 [facility] Comment on above: Order Comment: Speci men Type: BLOOD SPECIMENOrdering Facility: [facility] Address: [address] [place] [address] Performed By: #### 2 4323-8, 2777-1, 257-8, 44661-8 ####[facility] LABCLIA [id number] [place] [address] [place] Chloride [Moles/Vol] 107 mmol/L High 97-105 [facility] Comment on above: Order Comment: Speci men Type: BLOOD SPECIMENOrdering Facility: [facility] Address: [address] [place] [address] Performed By: #### 2 4323-8, 2777-1, 257-8, 24560-4 ####[facility] LABCLIA [id number] [place] [address] [place] CO2 [Moles/Vol] 24 mmol/L Normal 22-30 [facility] Comment on above: Order Comment: Speci men Type: BLOOD SPECIMENOrdering Facility: [facility] Address: [address] [place] [address] Performed By: #### 2 4323-8, 2777-1, 257-8, 24263-3 ####[facility] LABIA [id number] [place] [address] [place] Creatinine [Mass/Vol] 0.84 mg/dL Normal 0.73-1.22 [facility] Comment on above: Order Comment: Speci men Type: BLOOD SPECIMENOrdering Facility: [facility] Address: [address] [place] [address] Performed By: #### 2 4323-8, 2777-1, 257-8, 48992-8 ####[facility] LABIA [id number] [place] [address] [place] ESTIMATED GLOMERULAR FILTRATION RATE 96 mL/min/1.73m??? Normal >=60 [facility] Comment on above: Order Comment: Speci men Type: BLOOD SPECIMENOrdering Facility: [facility] Address: [address] [place] [address], [place] [address] Result Comment: Ignacia mated Glomerular Filtration Rate (eGFR) is calculated using the 2020 CKD-EPI creatinine equation. This equation utilizes serum creatinine, sex, and age as parameters. The creatinine assay has traceable calibration to isotope dilution-mass spectrometry. Refer to KDIGO guidelines for clinical interpretation. In patients with unstable renal function, e.g. those with acute kidney injury, the eGFR may not accurately reflect actual GFR. Performed By: #### 2 4323-8, 2777-1, 2570-, ####[facility] LABIA [id number] [address] [address] [place] Glucose [Mass/Vol] 121 mg/dL High 74-99 [facility] Comment on above: Order Comment: Speccarter cartwright Type: BLOOD SPECIMENOrdering Facility: [facility] Address: [address] [id number] Result Comment: The [place] Diabetes [employer] (ADA) provides guidance for cutoff values for fasting glucose and random glucose. The ADA defines fasting as no caloric intake for at least 8 hours. Fasting plasma glucose results between 100 to 125 mg/dL indicate increased risk for diabetes (prediabetes).Fasting plasma glucose results greater than or equal to 126 mg/dL meet the criteria for diagnosis of diabetes. In the absence of unequivocal hyperglycemia, results should be confirmed by repeat testing. In a patient with classic symptoms of hyperglycemia or hyperglycemic crisis, random plasma glucose results greater than or equal to 200 mg/dL meet the criteria for diagnosis of diabetes.Reference: Standards of Medical Care in Diabetes 2016, [place] Diabetes Association. Diabetes Care. 2016.39(Suppl 1). Performed By: #### 2 4323-8, 2777-1, 2570-8, 50113-3 ####[facility] LABIA [id number] [address] [address] [place] Potassium [Moles/Vol] 3.7 mmol/L Normal 3.7-5.1 [facility] Comment on above: Order Comment: Speci men Type: BLOOD SPECIMENOrdering Facility: [facility] Address: [address] [place] [address] Performed By: #### 2 4323-8, 2777-1, 257-8, 99034-0 ####[facility] LABIA [id number] [place] [address] [place] Protein [Mass/Vol] 6.3 g/dL Normal 6.3-8.0 [facility] Comment on above: Order Comment: Speci men Type: BLOOD SPECIMENOrdering Facility: [facility] Address: [address] [place] [address] Performed By: #### 2 4323-8, 2777-1, 257-8, 11554-8 ####[facility] LABIA [id number] [place] [address] [place] Sodium [Moles/Vol] 140 mmol/L Normal 136-144 [facility] Comment on above: Order Comment: Speci men Type: BLOOD SPECIMENOrdering Facility: [facility] Address: [address] [place] [address] Performed By: #### 2 4323-8, 2777-1, 257-8, 12600-3 ####[facility] [id number] [place] [address] [place] Urea nitrogen [Mass/Vol] 18 mg/dL Normal 9-24 [facility] Comment on above: Order Comment: Speci men Type: BLOOD SPECIMENOrdering Facility: [facility] Address: [address] [place] [address] Performed By: #### 2 4323-8, 2777-1, 257-8, 28314-0 ####[facility] LABIA [id number] [place] [id number] [place] Magnesium SerPl-mCncon 09-22 Magnesium [Mass/Vol] 1.6 mg/dL Low 1.7-2.3 [facility] Comment on above: Order Comment: Speci men Type: BLOOD SPECIMENOrdering Facility: [facility] Address: [address] [place] [phone] Performed By: #### 2 4323-8, 277-1, 2570-10, ####[facility] LABCLIA [id number] [address] STATES OF [facility] Phosphate SerPl-mCncon 09-22 Phosphate [Mass/Vol] 2.4 mg/dL Low 2.7-4.8 [facility] Comment on above: Order Comment: Speci men Type: BLOOD SPECIMENOrdering Facility: [facility] Address: [address] [place] [address] Performed By: #### 2 4323-8, 2776-03, 2570-10, ####[facility] LABCLIA [id number] [address] STATES OF [facility] Trigl SerPl-mCncon Triglyceride [Mass/Vol] 213 mg/dL High <150 [facility] Comment on above: Order Comment: Speci men Type: BLOOD SPECIMENOrdering Facility: [facility] Address: [address] [place] [address] Result Comment: <150 mg/dL, Normal 150-199 mg/dL, Borderline high 200-499 mg/dL, High>499 mg/dL, Very highReference:1. National Cholesterol Education Program ATP III Guideline At-A-Glance Quick Desk Reference: National Heart, Lung, and Blood Richardson. National Institutes of Health. 2001: NIH Publication No. 01-3305. Performed By: #### 2 4323-8, 2777-1, 2570-10, ####[facility] LABCLIA [id number] [address] OF [facility] Triglyceride [Mass/Vol]on FASTING TIME 8 hrs Normal [facility] Comment on above: Order Comment: Speci men Type: BLOOD SPECIMENOrdering Facility: [facility] Address: [address] Performed By: #### 2 4323-8, 2777-1, 2571-8, 99520-7 ####[facility] LABIA [id number] [place] [address] [place] XR ABDOMEN 1V SUPINEon 09-22 XR ABDOMEN 1V SUPINE Normal [facility] CBC panel Auto (Bld)on 09-21 Erythrocyte distribution width (RBC) [Ratio] 14.3 % Normal 11.5-15.0 [facility] Comment on above: Order Comment: Speci men Type: BLOOD SPECIMENOrdering Facility: [facility] Address: [address] [place] [address] Performed By: #### 5 8410-2 ####[facility] LABIA [id number] [address] [place] Hematocrit (Bld) [Volume fraction] 30.0 % Low 39.0-51.0 [facility] Comment on above: Order Comment: Speci men Type: BLOOD SPECIMENOrdering Facility: [facility] Address: [address] [place] [address] Performed By: #### 5 8410-2 ####[facility] LABIA [id number] [place] [address] [place] Hemoglobin (Bld) [Mass/Vol] 9.4 g/dL Low 13.0-17.0 [facility] Comment on above: Order Comment: Speci men Type: BLOOD SPECIMENOrdering Facility: [facility] Address: [address] [place], [place] [address] Performed By: #### 5 8410-2 ####[facility] LABIA [id number] [place] [address] [place] MCH (RBC) [Entitic mass] 27.7 pg Normal 26.0-34.0 [facility] Comment on above: Order Comment: Speci men Type: BLOOD SPECIMENOrdering Facility: [facility] Address: [address] Performed By: #### 5 8410-2 ####[facility] [id number] [address] STATES [facility] MCHC (RBC) [Mass/Vol] 31.3 g/dL Normal 30.5-36.0 [facility] Comment on above: Order Comment: Speci men Type: BLOOD SPECIMENOrdering Facility: [facility] Address: [address] [address] Performed By: #### 5 8410-2 ####[facility] [id number] [address] [place] MCV (RBC) [Entitic vol] 88.5 fL Normal 80.0-100.0 [facility] Comment on above: Order Comment: Speci men Type: BLOOD SPECIMENOrdering Facility: [facility] Address: [address] Performed By: #### 5 8410-2 ####[facility] [id number] [place] [address] [place] Nucleated RBC (Bld) [#/Vol] 10*3/uL Normal <0.01 [facility] Comment on above: Order Comment: Speci men Type: BLOOD SPECIMENOrdering Facility: [facility] Address: [address] [place], [place] [address] Performed By: #### 5 8410-2 ####[facility] [id number] [place] [address] [place] Platelet mean volume (Bld) [Entitic vol] 11.3 fL Normal 9.0-12.7 [facility] Comment on above: Order Comment: Speci men Type: BLOOD SPECIMENOrdering Facility: [facility] Address: [address] [place], [place] [address] Performed By: #### 5 8410-2 ####[facility] LABCLIA [id number] [place] [address] [place] Platelets (Bld) [#/Vol] 127 10*3/uL Low 150-400 [facility] Comment on above: Order Comment: Speci men Type: BLOOD SPECIMENOrdering Facility: [facility] Address: [address] [place] [address] Result Comment: Resu lts checked and verified.No clot detected. Performed By: #### 5 8410-2 ####[facility] LABIA [id number] [place] [address] [place] RBC (Bld) [#/Vol] 3.39 10*6/uL Low 4.20-6.00 [facility] Comment on above: Order Comment: Speci men Type: BLOOD SPECIMENOrdering Facility: [facility] Address: [address] [place] [address] Performed By: #### 5 8410-2 ####[facility] LABCLIA [id number] [place] [address] [place] WBC (Bld) [#/Vol] 17.24 10*3/uL High 3.70-11.00 [facility] Comment on above: Order Comment: Speci men Type: BLOOD SPECIMENOrdering Facility: [facility] Address: [address] [place] [address] Performed By: #### 5 8410-2 ####[facility] LABIA [id number] [place] [id number] [place] CONSULTon 09-21-2022 CONSULT Normal [facility] CONSULT PROGon 09-21-2022 CONSULT PROG Normal [facility] CONSULT PROG Normal [facility] Comprehensive metabolic 2000 panelon 09-21-2022 Albumin [Mass/Vol] 3.1 g/dL Low 3.9-4.9 [facility] Comment on above: Order Comment: Speci men Type: BLOOD SPECIMENOrdering Facility: [facility] Address: [address] Performed By: #### 2 4323-8, 89741-4, 2776-03 ####[facility] LABCLIA [id number] [place] [address] [place] ALP [Catalytic activity/Vol] 56 U/L Normal 38-113 [facility] Comment on above: Order Comment: Speci men Type: BLOOD SPECIMENOrdering Facility: [facility] Address: [address] [place] [address] Performed By: #### 2 4323-8, , 2776-03 ####[facility] LABCLIA [id number] [place] [address] [place] ALT [Catalytic activity/Vol] 24 U/L Normal 10-54 [facility] Comment on above: Order Comment: Speci men Type: BLOOD SPECIMENOrdering Facility: [facility] Address: [address] Performed By: #### 2 4323-8, , 2776-03 ####[facility] LABIA [id number] [place] [address] [place] Anion gap [Moles/Vol] 13 mmol/L Normal 9-18 [facility] Comment on above: Order Comment: Speci men Type: BLOOD SPECIMENOrdering Facility: [facility] Address: [address] Performed By: #### 2 4323-8, , 2776-03 ####[facility] LABIA [id number] [place] [address] [place] AST [Catalytic activity/Vol] 28 U/L Normal 14-40 [facility] Comment on above: Order Comment: Speci men Type: BLOOD SPECIMENOrdering Facility: [facility] Address: [address] Performed By: #### 2 4323-8, 08922-3, 2776-03 ####[facility] LABCLIA [id number] [place] [address] [place] Bilirubin [Mass/Vol] 0.8 mg/dL Normal 0.2-1.3 [facility] Comment on above: Order Comment: Speci men Type: BLOOD SPECIMENOrdering Facility: [facility] Address: [address] Performed By: #### 2 4323-8, , 2776-03 ####[facility] LABCLIA [id number] [place] [address] [place] Calcium [Mass/Vol] 9.1 mg/dL Normal 8.5-10.2 [facility] Comment on above: Order Comment: Speci men Type: BLOOD SPECIMENOrdering Facility: [facility] Address: [address] Performed By: #### 2 4323-8, , 2776-03 ####[facility] LABIA [id number] [place] [address] [place] Chloride [Moles/Vol] 107 mmol/L High 97-105 [facility] Comment on above: Order Comment: Speci men Type: BLOOD SPECIMENOrdering Facility: [facility] Address: [address] [place] [address] Performed By: #### 2 4323-8, , 2776-03 ####[facility] LABIA [id number] [place] [address] [place] CO2 [Moles/Vol] 19 mmol/L Low 22-30 [facility] Comment on above: Order Comment: Speci men Type: BLOOD SPECIMENOrdering Facility: [facility] Address: [address] Performed By: #### 2 4323-8, , 2776-03 ####[facility] LABIA [id number] [place] [address] [place] Creatinine [Mass/Vol] 1.13 mg/dL Normal 0.73-1.22 [facility] Comment on above: Order Comment: Cierra cartwright Type: BLOOD SPECIMENOrdering Facility: [facility] Address: [address] [place] [address] Performed By: #### 2 4323-8, , 2776-03 ####[facility] LABIA [id number] [place] [address] [place] ESTIMATED GLOMERULAR FILTRATION RATE 71 mL/min/1.73m??? Normal >=60 [facility] Comment on above: Order Comment: Cierra cartwright Type: BLOOD SPECIMENOrdering Facility: [facility] Address: [address] [address] Result Comment: Ignacia mated Glomerular Filtration Rate (eGFR) is calculated using the 2020 CKD-EPI creatinine equation. This equation utilizes serum creatinine, sex, and age as parameters. The creatinine assay has traceable calibration to isotope dilution-mass spectrometry. Refer to KDIGO guidelines for clinical interpretation. In patients with unstable renal function, e.g. those with acute kidney injury, the eGFR may not accurately reflect actual GFR. Performed By: #### 2 4323-8, , 2776-03 ####[facility] LABIA [id number] [place] [address] [place] Glucose [Mass/Vol] 106 mg/dL High 74-99 [facility] Comment on above: Order Comment: Cierra cartwright Type: BLOOD SPECIMENOrdering Facility: [facility] Address: [address] [address] Result Comment: [employer] Association (ADA) provides guidance for cutoff values for fasting glucose and random glucose. The ADA defines fasting as no caloric intake for at least 8 hours. Fasting plasma glucose results between 100 to 125 mg/dL indicate increased risk for diabetes (prediabetes).Fasting plasma glucose results greater than or equal to 126 mg/dL meet the criteria for diagnosis of diabetes. In the absence of unequivocal hyperglycemia, results should be confirmed by repeat testing. In a patient with classic symptoms of hyperglycemia or hyperglycemic crisis, random plasma glucose results greater than or equal to 200 mg/dL meet the criteria for diagnosis of diabetes.Reference: Standards of Medical Care in Diabetes 2016, [place] Diabetes Association. Diabetes Care. 2016.39(Suppl 1). Performed By: #### 2 4323-8, , 2776-03 ####[facility] LABCLIA [id number] [place] [address] [place] Potassium [Moles/Vol] 4.3 mmol/L Normal 3.7-5.1 [facility] Comment on above: Order Comment: Speci men Type: BLOOD SPECIMENOrdering Facility: [facility] Address: [address] [place] [address] Performed By: #### 2 4328, , 2776-03 ####[facility] LABCLIA [id number] [place] [address] [place] Protein [Mass/Vol] 6.2 g/dL Low 6.3-8.0 [facility] Comment on above: Order Comment: Speci men Type: BLOOD SPECIMENOrdering Facility: [facility] Address: [address] [place] [address] Performed By: #### 2 432-8, , 2776-03 ####[facility] LABCLIA [id number] [place] [address] [place] Sodium [Moles/Vol] 139 mmol/L Normal 136-144 [facility] Comment on above: Order Comment: Speci men Type: BLOOD SPECIMENOrdering Facility: [facility] Address: [address] [id number] Performed By: #### 2 4323-8, , 2776-03 ####[facility] LABCLIA [id number] [place] [address] [place] Urea nitrogen [Mass/Vol] 27 mg/dL High 9-24 [facility] Comment on above: Order Comment: Speci men Type: BLOOD SPECIMENOrdering Facility: [facility] Address: [address] [place] [address] Performed By: #### 2 4323-8, 93131-5, 2776-03 ####[facility] LABCLIA [id number] [place] [address] [place] HISTORY PHYSICALon HISTORY PHYSICAL Normal [facility] Magnesium SerPl-mCncon 09-21 Magnesium [Mass/Vol] 1.9 mg/dL Normal 1.7-2.3 [facility] Comment on above: Order Comment: Speci men Type: BLOOD SPECIMENOrdering Facility: [facility] Address: [address] [place], [place] [address] Performed By: #### 2 4323-8, , 2776-03 ####[facility] LABCLIA [id number] [place] [address] [place] NURSING PROGon 09-21-2022 NURSING PROG Normal [facility] Phosphate SerPl-ncon 09-21 Phosphate [Mass/Vol] 2.9 mg/dL Normal 2.7-4.8 [facility] Comment on above: Order Comment: Speci men Type: BLOOD SPECIMENOrdering Facility: [facility] Address: [place] Performed By: #### 2 4323-8, , 2776-03 ####[facility] LABCLIA [id number] [address] [place] XR ABDOMEN 1V SUPINEon 09-21 XR ABDOMEN 1V SUPINE Normal [facility] ARTERIAL BLOOD GASESon 09-20 Base deficit (BldA) [Moles/Vol] -1 mmol/L Normal -2-0 [facility] Comment on above: Order Comment: Speci men Type: ARTERIAL BLOOD SPECIMENOrdering Facility: [facility] Address: [address] [place], [place] [address] Performed By: #### A LLBG ####[facility] LABIA [id number] [place] [address] [place] Body temperature 98.6 [degF] Normal [facility] Comment on above: Order Comment: Speci men Type: ARTERIAL BLOOD SPECIMENOrdering Facility: [facility] Address: [address] [place], [place] [address] Performed By: #### A LLBG ####[facility] LABIA [id number] [place] [address] [place] Calcium.ionized (Bld) [Mass/Vol] 1.12 mmol/L Normal 1.08-1.30 [facility] Comment on above: Order Comment: Speci men Type: ARTERIAL BLOOD SPECIMENOrdering Facility: [facility] Address: [address] [place], [place] [address] Performed By: #### A LLBG ####[facility] [id number] [address] [place] Calcium.ionized adjusted to pH 7.4 (BldA) [Moles/Vol] 1.18 mmol/L Normal 1.08-1.30 [facility] Comment on above: Order Comment: Speci men Type: ARTERIAL BLOOD SPECIMENOrdering Facility: [facility] Address: [address] [place], [place] [address] Performed By: #### A LLBG ####[facility] LABIA [id number] [place] [address] [place] Carboxyhemoglobin (BldA) [Mass fraction] 0.6 % Normal 0.0-2.0 [facility] Comment on above: Order Comment: Speci men Type: ARTERIAL BLOOD SPECIMENOrdering Facility: [facility] Address: [address] Result Comment: Carb oxyhemoglobin Reference Range for Smokers: 2.0-8.0% Performed By: #### A LLBG ####[facility] LABCLIA [id number] [place] [address] [place] CO2 (Bld) [Partial pressure] 27 mm Hg Low 36-46 [facility] Comment on above: Order Comment: Speci men Type: ARTERIAL BLOOD SPECIMENOrdering Facility: [facility] Address: [address] [address] Performed By: #### A LLBG ####[facility] LABCLIA [id number] [place] [address] [place] CO2 [Moles/Vol] 22 mmol/L Normal 22-28 [facility] Comment on above: Order Comment: Speci men Type: ARTERIAL BLOOD SPECIMENOrdering Facility: [facility] Address: [address] Performed By: #### A LLBG ####[facility] LABCLIA [id number] [place] [address] [place] Glucose [Mass/Vol] 120 mg/dL High 60-105 [facility] Comment on above: Order Comment: Speci men Type: ARTERIAL BLOOD SPECIMENOrdering Facility: [facility] Address: [address] Performed By: #### A LLBG ####[facility] LABCLIA [id number] [place] [address] [place] HCO3 (Bld) [Moles/Vol] 21 mmol/L Low 22-26 [facility] Comment on above: Order Comment: Speci men Type: ARTERIAL BLOOD SPECIMENOrdering Facility: [facility] Address: [address] Performed By: #### A LLBG ####[facility] LABCLIA [id number] [address] [place] Hematocrit (Bld) [Volume fraction] 29.5 % Low 39.0-51.0 [facility] Comment on above: Order Comment: Speci men Type: ARTERIAL BLOOD SPECIMENOrdering Facility: [facility] Address: [address] [place] [address] Performed By: #### A LLBG ####[facility] LABCLIA [id number] [address] [place] Hemoglobin (Bld) [Mass/Vol] 9.5 g/dL Low 13.0-17.0 [facility] Comment on above: Order Comment: Speci men Type: ARTERIAL BLOOD SPECIMENOrdering Facility: [facility] Address: [address] [place] [address] Performed By: #### A LLBG ####[facility] LABCLIA [id number] [address] [place] Lactate [Moles/Vol] 1.3 mmol/L Normal 0.5-2.2 [facility] Comment on above: Order Comment: Speci men Type: ARTERIAL BLOOD SPECIMENOrdering Facility: [facility] Address: [address] [place], [place] [address] Performed By: #### A LLBG ####[facility] LABCLIA [id number] [address] [place] Methemoglobin (Bld) [Mass fraction] 1.4 % Normal 0.0-1.5 [facility] Comment on above: Order Comment: Speci men Type: ARTERIAL BLOOD SPECIMENOrdering Facility: [facility] Address: [address] [place], [place] [address] Performed By: #### A LLBG ####[facility] LABCLIA [id number] [place] [address] [place] O2 THERAPY Ventilator Normal [facility] Comment on above: Order Comment: Speci men Type: ARTERIAL BLOOD SPECIMENOrdering Facility: [facility] Address: [address] Performed By: #### A LLBG ####[facility] LABIA [id number] [place] [address] [place] Oxygen (Bld) [Partial pressure] 140 mm Hg High 85-95 [facility] Comment on above: Order Comment: Speci men Type: ARTERIAL BLOOD SPECIMENOrdering Facility: [facility] Address: [address] [address] Performed By: #### A LLBG ####[facility] LABIA [id number] [place] [address] [place] Oxyhemoglobin (BldA) [Mass fraction] 97 % Normal 95-98 [facility] Comment on above: Order Comment: Speci men Type: ARTERIAL BLOOD SPECIMENOrdering Facility: [facility] Address: [address] Performed By: #### A LLBG ####[facility] LABIA [id number] [place] [address] [place] pH (Bld) 7.50 [pH] High 7.35-7.45 [facility] Comment on above: Order Comment: Speci men Type: ARTERIAL BLOOD SPECIMENOrdering Facility: [facility] Address: [address] [place], [place] [address] Performed By: #### A LLBG ####[facility] LABIA [id number] [place] [address] [place] Potassium [Moles/Vol] 4.0 mmol/L Normal 3.5-5.0 [facility] Comment on above: Order Comment: Speci men Type: ARTERIAL BLOOD SPECIMENOrdering Facility: [facility] Address: [address] Performed By: #### A LLBG ####[facility] LABIA [id number] [place] [address] [place] Sodium [Moles/Vol] 140 mmol/L Normal 136-144 [facility] Comment on above: Order Comment: Speci men Type: ARTERIAL BLOOD SPECIMENOrdering Facility: [facility] Address: [address] [place] [address] Performed By: #### A LLBG ####[facility] LABCLIA [id number] [place] [address] [place] Basic metabolic 2000 panelon 09-20-2022 Anion gap [Moles/Vol] 13 mmol/L Normal 9-18 [facility] Comment on above: Order Comment: Speci men Type: BLOOD SPECIMENOrdering Facility: [facility] Address: [address] [place] [address] Performed By: #### 2 4321-2 ####[facility] LABCLIA [id number] [place] [address] [place] Calcium [Mass/Vol] 8.3 mg/dL Low 8.5-10.2 [facility] Comment on above: Order Comment: Speci men Type: BLOOD SPECIMENOrdering Facility: [facility] Address: [address] [place] [address] Performed By: #### 2 4321-2 ####[facility] LABCLIA [id number] [place] [address] [place] Chloride [Moles/Vol] 108 mmol/L High 97-105 [facility] Comment on above: Order Comment: Speci men Type: BLOOD SPECIMENOrdering Facility: [facility] Address: [address] [place], [place] [address] Performed By: #### 2 4321-2 ####[facility] LABCLIA [id number] [place] [address] [place] CO2 [Moles/Vol] 18 mmol/L Low 22-30 [facility] Comment on above: Order Comment: Speci men Type: BLOOD SPECIMENOrdering Facility: [facility] Address: [address] [address] Performed By: #### 2 4321-2 ####[facility] [id number] [address] [place] Creatinine [Mass/Vol] 1.66 mg/dL High 0.73-1.22 [facility] Comment on above: Order Comment: Speci men Type: BLOOD SPECIMENOrdering Facility: [facility] Address: [address] [address] Performed By: #### 2 4321-2 ####[facility] LABIA [id number] [place] [address] [place] ESTIMATED GLOMERULAR FILTRATION RATE 45 mL/min/1.73m??? Low >=60 [facility] Comment on above: Order Comment: Speci men Type: BLOOD SPECIMENOrdering Facility: [facility] Address: [address] [address] Result Comment: Ignacia mated Glomerular Filtration Rate (eGFR) is calculated using the 2020 CKD-EPI creatinine equation. This equation utilizes serum creatinine, sex, and age as parameters. The creatinine assay has traceable calibration to isotope dilution-mass spectrometry. Refer to KDIGO guidelines for clinical interpretation. In patients with unstable renal function, e.g. those with acute kidney injury, the eGFR may not accurately reflect actual GFR. Performed By: #### 2 4321-2 ####[facility] LABIA [id number] [place] [address] [place] Glucose [Mass/Vol] 116 mg/dL High 74-99 [facility] Comment on above: Order Comment: Speci men Type: BLOOD SPECIMENOrdering Facility: [facility] Address: [address] [place] [address] Result Comment: The [place] Diabetes Association (ADA) provides guidance for cutoff values for fasting glucose and random glucose. The ADA defines fasting as no caloric intake for at least 8 hours. Fasting plasma glucose results between 100 to 125 mg/dL indicate increased risk for diabetes (prediabetes).Fasting plasma glucose results greater than or equal to 126 mg/dL meet the criteria for diagnosis of diabetes. In the absence of unequivocal hyperglycemia, results should be confirmed by repeat testing. In a patient with classic symptoms of hyperglycemia or hyperglycemic crisis, random plasma glucose results greater than or equal to 200 mg/dL meet the criteria for diagnosis of diabetes.Reference: Standards of Medical Care in Diabetes 2016, [place] Diabetes Association. Diabetes Care. 2016.39(Suppl 1). Performed By: #### 2 4321-2 ####[facility] LABCLIA [id number] [place] [address] [place] Potassium [Moles/Vol] 4.1 mmol/L Normal 3.7-5.1 [facility] Comment on above: Order Comment: Cierra cartwright Type: BLOOD SPECIMENOrdering Facility: [facility] Address: [address] [place] [address] Performed By: #### 2 4321-2 ####[facility] LABIA [id number] [place] [address] [place] Sodium [Moles/Vol] 139 mmol/L Normal 136-144 [facility] Comment on above: Order Comment: Cierra cartwright Type: BLOOD SPECIMENOrdering Facility: [facility] Address: [address] [place] [address] Performed By: #### 2 4321-2 ####[facility] LABIA [id number] [place] [address] [place] Urea nitrogen [Mass/Vol] 27 mg/dL High 9-24 [facility] Comment on above: Order Comment: Guadalu[place] men Type: BLOOD SPECIMENOrdering Facility: [facility] Address: [address] [place] [address] Performed By: #### 2 4321-2 ####[facility] LABIA [id number] [place] [address] [place] CBC panel Auto (Bld)on 09-20 Erythrocyte distribution width (RBC) [Ratio] 14.2 % Normal 11.5-15.0 [facility] Comment on above: Order Comment: Speci men Type: BLOOD SPECIMENOrdering Facility: [facility] Address: [address] [place] [address] Performed By: #### 5 8410-2 ####[facility] LABCLIA [id number] [address] [facility] Hematocrit (Bld) [Volume fraction] 27.6 % Low 39.0-51.0 [facility] Comment on above: Order Comment: Speci men Type: BLOOD SPECIMENOrdering Facility: [facility] Address: [address] [place] [address] Performed By: #### 5 8410-2 ####[facility] LABIA [id number] [address] [place] Hemoglobin (Bld) [Mass/Vol] 9.1 g/dL Low 13.0-17.0 [facility] Comment on above: Order Comment: Speci men Type: BLOOD SPECIMENOrdering Facility: [facility] Address: [address] [place], [place] [address] Performed By: #### 5 8410-2 ####[facility] LABCLIA [id number] [address] [place] MCH (RBC) [Entitic mass] 27.8 pg Normal 26.0-34.0 [facility] Comment on above: Order Comment: Speci men Type: BLOOD SPECIMENOrdering Facility: [facility] Address: [address] [place], [place] [address] Performed By: #### 5 8410-2 ####[facility] LABCLIA [id number] [address] [place] MCHC (RBC) [Mass/Vol] 33.0 g/dL Normal 30.5-36.0 [facility] Comment on above: Order Comment: Speci men Type: BLOOD SPECIMENOrdering Facility: [facility] Address: [address] Performed By: #### 5 8410-2 ####[facility] LABIA [id number] [address] MCV (RBC) [Entitic vol] 84.4 fL Normal 80.0-100.0 [facility] Comment on above: Order Comment: Speci men Type: BLOOD SPECIMENOrdering Facility: [facility] Address: [address] [place], [place] [address] Performed By: #### 5 8410-2 ####[facility] LABIA [id number] [address] [place] Nucleated RBC (Bld) [#/Vol] 10*3/uL Normal <0.01 [facility] Comment on above: Order Comment: Speci men Type: BLOOD SPECIMENOrdering Facility: [facility] Address: [address] [place], [place] [address] Performed By: #### 5 8410-2 ####[facility] [id number] [address] [place] Platelet mean volume (Bld) [Entitic vol] 11.4 fL Normal 9.0-12.7 [facility] Comment on above: Order Comment: Speci men Type: BLOOD SPECIMENOrdering Facility: [facility] Address: [address] [place], [place] [address] Performed By: #### 5 8410-2 ####[facility] LABIA [id number] [place] [address] [place] Platelets (Bld) [#/Vol] 121 10*3/uL Low 150-400 [facility] Comment on above: Order Comment: Speci men Type: BLOOD SPECIMENOrdering Facility: [facility] Address: [address] [place], [place] [address] Result Comment: Resu lts checked and verified.No clot detected. Performed By: #### 5 8410-2 ####[facility] LABIA [id number] [place] [address] [place] RBC (Bld) [#/Vol] 3.27 10*6/uL Low 4.20-6.00 [facility] Comment on above: Order Comment: Speci men Type: BLOOD SPECIMENOrdering Facility: [facility] Address: [address] [address] Performed By: #### 5 8410-2 ####[facility] LABIA [id number] [place] [address] [place] WBC (Bld) [#/Vol] 19.14 10*3/uL High 3.70-11.00 [facility] Comment on above: Order Comment: Speci men Type: BLOOD SPECIMENOrdering Facility: [facility] Address: [address] [address] Performed By: #### 5 8410-2 ####[facility] [id number] [place] [address] [place] CONSULT PROGon 09-20-2022 CONSULT PROG Normal [facility] CONSULT PROG Normal [facility] CONSULT PROG Normal [facility] NUTRITIONon 09-20-2022 NUTRITION Normal [facility] ARTERIAL BLOOD GASESon 09-19 Base deficit (BldA) [Moles/Vol] -2 mmol/L Normal -2-0 [facility] Comment on above: Order Comment: Speci men Type: ARTERIAL BLOOD SPECIMENOrdering Facility: [facility] Address: [address] Performed By: #### A LLBG ####[facility] LABIA [id number] [place] [address] [place] Body temperature 98.78 [degF] Normal [facility] Comment on above: Order Comment: Speci men Type: ARTERIAL BLOOD SPECIMENOrdering Facility: [facility] Address: [address] Performed By: #### A LLBG ####[facility] [id number] [place] [address] [place] Calcium.ionized (Bld) [Mass/Vol] 1.11 mmol/L Normal 1.08-1.30 [facility] Comment on above: Order Comment: Speci men Type: ARTERIAL BLOOD SPECIMENOrdering Facility: [facility] Address: [address] [place], [place] [address] Performed By: #### A LLBG ####[facility] [id number] [place] [address] [place] Calcium.ionized adjusted to pH 7.4 (BldA) [Moles/Vol] 1.15 mmol/L Normal 1.08-1.30 [facility] Comment on above: Order Comment: Speci men Type: ARTERIAL BLOOD SPECIMENOrdering Facility: [facility] Address: [address] [place], [place] [address] Performed By: #### A LLBG ####[facility] [id number] [place] [address] [place] Carboxyhemoglobin (BldA) [Mass fraction] 1.3 % Normal 0.0-2.0 [facility] Comment on above: Order Comment: Speci men Type: ARTERIAL BLOOD SPECIMENOrdering Facility: [facility] Address: [address] [place] [address] Result Comment: Carb oxyhemoglobin Reference Range for Smokers: 2.0-8.0% Performed By: #### A LLBG ####[facility] [id number] [place] [address] [place] CO2 (Bld) [Partial pressure] 28 mm Hg Low 36-46 [facility] Comment on above: Order Comment: Speci men Type: ARTERIAL BLOOD SPECIMENOrdering Facility: [facility] Address: [address] [place], [place] [address] Performed By: #### A LLBG ####[facility] LABCLIA [id number] [place] [address] [place] CO2 [Moles/Vol] 21 mmol/L Low 22-28 [facility] Comment on above: Order Comment: Speci men Type: ARTERIAL BLOOD SPECIMENOrdering Facility: [facility] Address: [address] [place], [place] [address] Performed By: #### A LLBG ####[facility] LABCLIA [id number] [place] [address] [place] CO2 adjusted to patient's actual temperature (Bld) [Partial pressure] 28 mmHg Low 36-46 [facility] Comment on above: Order Comment: Speci men Type: ARTERIAL BLOOD SPECIMENOrdering Facility: [facility] Address: [address] Performed By: #### A LLBG ####[facility] LABCLIA [id number] [place] [address] [place] FIO2 30 % Normal [facility] Comment on above: Order Comment: Speci men Type: ARTERIAL BLOOD SPECIMENOrdering Facility: [facility] Address: [address] Performed By: #### A LLBG ####[facility] LABCLIA [id number] [place] [address] [place] Glucose [Mass/Vol] 154 mg/dL High 60-105 [facility] Comment on above: Order Comment: Speci men Type: ARTERIAL BLOOD SPECIMENOrdering Facility: [facility] Address: [address] Performed By: #### A LLBG ####[facility] LABCLIA [id number] [place] [address] [place] HCO3 (Bld) [Moles/Vol] 20 mmol/L Low 22-26 [facility] Comment on above: Order Comment: Speci men Type: ARTERIAL BLOOD SPECIMENOrdering Facility: [facility] Address: [address] [place] [place] [address] Performed By: #### A LLBG ####[facility] LABIA [id number] [place] [address] [place] Hematocrit (Bld) [Volume fraction] 29.0 % Low 39.0-51.0 [facility] Comment on above: Order Comment: Speci men Type: ARTERIAL BLOOD SPECIMENOrdering Facility: [facility] Address: [address] [address] Performed By: #### A LLBG ####[facility] LABIA [id number] [place] [address] [place] Hemoglobin (Bld) [Mass/Vol] 9.4 g/dL Low 13.0-17.0 [facility] Comment on above: Order Comment: Speci men Type: ARTERIAL BLOOD SPECIMENOrdering Facility: [facility] Address: [address] Performed By: #### A LLBG ####[facility] LABIA [id number] [place] [address] [place] Lactate [Moles/Vol] 1.7 mmol/L Normal 0.5-2.2 [facility] Comment on above: Order Comment: Speci men Type: ARTERIAL BLOOD SPECIMENOrdering Facility: [facility] Address: [address] Performed By: #### A LLBG ####[facility] LABIA [id number] [place] [address] [place] Methemoglobin (Bld) [Mass fraction] 1.2 % Normal 0.0-1.5 [facility] Comment on above: Order Comment: Speci men Type: ARTERIAL BLOOD SPECIMENOrdering Facility: [facility] Address: [address] Performed By: #### A LLBG ####[facility] LABCLIA [id number] [place] [address] [place] O2 THERAPY Ventilator Normal [facility] Comment on above: Order Comment: Speci men Type: ARTERIAL BLOOD SPECIMENOrdering Facility: [facility] Address: [address] [place] [address] Performed By: #### A LLBG ####[facility] LABCLIA [id number] [place] [address] [place] Oxygen (Bld) [Partial pressure] 133 mm Hg High 85-95 [facility] Comment on above: Order Comment: Speci men Type: ARTERIAL BLOOD SPECIMENOrdering Facility: [facility] Address: [address] [place] [address] Performed By: #### A LLBG ####[facility] LABCLIA [id number] [address] [place] Oxygen adjusted to patient's actual temperature (Bld) [Partial pressure] 133 mmHg High 85-95 [facility] Comment on above: Order Comment: Speci men Type: ARTERIAL BLOOD SPECIMENOrdering Facility: [facility] Address: [address] [place] [address] Performed By: #### A LLBG ####[facility] LABCLIA [id number] [place] [address] [place] Oxyhemoglobin (BldA) [Mass fraction] 97 % Normal 95-98 [facility] Comment on above: Order Comment: Speci men Type: ARTERIAL BLOOD SPECIMENOrdering Facility: [facility] Address: [address] [place] [address] Performed By: #### A LLBG ####[facility] LABCLIA [id number] [place] [id number] [place] pH (Bld) 7.47 [pH] High 7.35-7.45 [facility] Comment on above: Order Comment: Speci men Type: ARTERIAL BLOOD SPECIMENOrdering Facility: [facility] Address: [address] Performed By: #### A LLBG ####[facility] LABCLIA [id number] [place] [address] [place] pH adjusted to patient's actual temperature (Bld) 7.47 High 7.35-7.45 [facility] Comment on above: Order Comment: Speci men Type: ARTERIAL BLOOD SPECIMENOrdering Facility: [facility] Address: [address] Performed By: #### A LLBG ####[facility] LABCLIA [id number] [place] [address] [place] Potassium [Moles/Vol] 4.3 mmol/L Normal 3.5-5.0 [facility] Comment on above: Order Comment: Speci men Type: ARTERIAL BLOOD SPECIMENOrdering Facility: [facility] Address: [address] Performed By: #### A LLBG ####[facility] LABCLIA [id number] [place] [address] [place] Sodium [Moles/Vol] 139 mmol/L Normal 136-144 [facility] Comment on above: Order Comment: Speci men Type: ARTERIAL BLOOD SPECIMENOrdering Facility: [facility] Address: [address] [place] [address] Performed By: #### A LLBG ####[facility] LABCLIA [id number] [place] [address] [place] Base deficit (BldA) [Moles/Vol] -4 mmol/L Low -2-0 [facility] Comment on above: Order Comment: Speci men Type: ARTERIAL BLOOD SPECIMENOrdering Facility: [facility] Address: [address] Performed By: #### A LLBG ####[facility] LABCLIA [id number] [place] [address] [place] Body temperature 102.74 [degF] Normal [facility] Comment on above: Order Comment: Speci men Type: ARTERIAL BLOOD SPECIMENOrdering Facility: [facility] Address: [address] [place] [address] Performed By: #### A LLBG ####[facility] LABCLIA [id number] [place] [address] [place] Calcium.ionized (Bld) [Mass/Vol] 1.09 mmol/L Normal 1.08-1.30 [facility] Comment on above: Order Comment: Speci men Type: ARTERIAL BLOOD SPECIMENOrdering Facility: [facility] Address: [address] [place] [address] Performed By: #### A LLBG ####[facility] LABIA [id number] [address] [place] Calcium.ionized adjusted to pH 7.4 (BldA) [Moles/Vol] 1.10 mmol/L Normal 1.08-1.30 [facility] Comment on above: Order Comment: Speci men Type: ARTERIAL BLOOD SPECIMENOrdering Facility: [facility] Address: [address] [place] [address] Performed By: #### A LLBG ####[facility] LABCLIA [id number] [address] [place] Carboxyhemoglobin (BldA) [Mass fraction] 0.6 % Normal 0.0-2.0 [facility] Comment on above: Order Comment: Speci men Type: ARTERIAL BLOOD SPECIMENOrdering Facility: [facility] Address: [address] [place] [address] Result Comment: Carb oxyhemoglobin Reference Range for Smokers: 2.0-8.0% Performed By: #### A LLBG ####[facility] LABCLIA [id number] [place] [address] [place] CO2 (Bld) [Partial pressure] 31 mm Hg Low 36-46 [facility] Comment on above: Order Comment: Speci men Type: ARTERIAL BLOOD SPECIMENOrdering Facility: [facility] Address: [address] Performed By: #### A LLBG ####[facility] LABCLIA [id number] [place] [address] [place] CO2 [Moles/Vol] 21 mmol/L Low 22-28 [facility] Comment on above: Order Comment: Speci men Type: ARTERIAL BLOOD SPECIMENOrdering Facility: [facility] Address: [address] Performed By: #### A LLBG ####[facility] LABCLIA [id number] [address] [place] CO2 adjusted to patient's actual temperature (Bld) [Partial pressure] 34 mmHg Low 36-46 [facility] Comment on above: Order Comment: Speci men Type: ARTERIAL BLOOD SPECIMENOrdering Facility: [facility] Address: [address] [place], [place] [address] Performed By: #### A LLBG ####[facility] LABCLIA [id number] [place] [address] [place] FIO2 30 % Normal [facility] Comment on above: Order Comment: Speci men Type: ARTERIAL BLOOD SPECIMENOrdering Facility: [facility] Address: [address] Performed By: #### A LLBG ####[facility] LABCLIA [id number] [place] [address] [place] Glucose [Mass/Vol] 128 mg/dL High 60-105 [facility] Comment on above: Order Comment: Speci men Type: ARTERIAL BLOOD SPECIMENOrdering Facility: [facility] Address: [address] Performed By: #### A LLBG ####[facility] LABCLIA [id number] [place] [address] [place] HCO3 (Bld) [Moles/Vol] 20 mmol/L Low 22-26 [facility] Comment on above: Order Comment: Speci men Type: ARTERIAL BLOOD SPECIMENOrdering Facility: [facility] Address: [address] [place], [place] [address] Performed By: #### A LLBG ####[facility] LABCLIA [id number] [place] [address] [place] Hematocrit (Bld) [Volume fraction] 30.6 % Low 39.0-51.0 [facility] Comment on above: Order Comment: Speci men Type: ARTERIAL BLOOD SPECIMENOrdering Facility: [facility] Address: [address] [place] [address] Performed By: #### A LLBG ####[facility] LABIA [id number] [place] [address] [place] Hemoglobin (Bld) [Mass/Vol] 9.9 g/dL Low 13.0-17.0 [facility] Comment on above: Order Comment: Speci men Type: ARTERIAL BLOOD SPECIMENOrdering Facility: [facility] Address: [address] [place], [place] [address] Performed By: #### A LLBG ####[facility] LABIA [id number] [place] [address] [place] Lactate [Moles/Vol] 2.8 mmol/L High 0.5-2.2 [facility] Comment on above: Order Comment: Speci men Type: ARTERIAL BLOOD SPECIMENOrdering Facility: [facility] Address: [address] [place], [place] [address] Performed By: #### A LLBG ####[facility] LABIA [id number] [place] [address] [place] Methemoglobin (Bld) [Mass fraction] 1.3 % Normal 0.0-1.5 [facility] Comment on above: Order Comment: Speci men Type: ARTERIAL BLOOD SPECIMENOrdering Facility: [facility] Address: [address] Performed By: #### A LLBG ####[facility] LABCLIA [id number] [place] [address] [place] MINUTE VENTILATION 9 L/min Normal [facility] Comment on above: Order Comment: Speci men Type: ARTERIAL BLOOD SPECIMENOrdering Facility: [facility] Address: [address] Performed By: #### A LLBG ####[facility] LABCLIA [id number] [address] [place] O2 THERAPY Ventilator Normal [facility] Comment on above: Order Comment: Speci men Type: ARTERIAL BLOOD SPECIMENOrdering Facility: [facility] Address: [address] Performed By: #### A LLBG ####[facility] LABCLIA [id number] [address] [place] Oxygen (Bld) [Partial pressure] 131 mm Hg High 85-95 [facility] Comment on above: Order Comment: Speci men Type: ARTERIAL BLOOD SPECIMENOrdering Facility: [facility] Address: [address] [place] [id number] Performed By: #### A LLBG ####[facility] LABCLIA [id number] [place] [address] [place] Oxygen adjusted to patient's actual temperature (Bld) [Partial pressure] 144 mmHg High 85-95 [facility] Comment on above: Order Comment: Speci men Type: ARTERIAL BLOOD SPECIMENOrdering Facility: [facility] Address: [address] [place] [address] Performed By: #### A LLBG ####[facility] LABCLIA [id number] [place] [address] [place] Oxyhemoglobin (BldA) [Mass fraction] 97 % Normal 95-98 [facility] Comment on above: Order Comment: Speci men Type: ARTERIAL BLOOD SPECIMENOrdering Facility: [facility] Address: [address] [place] [address] Performed By: #### A LLBG ####[facility] LABCLIA [id number] [place] [address] [place] PEEP/CPAP 5 cmH2O Normal [facility] Comment on above: Order Comment: Speci men Type: ARTERIAL BLOOD SPECIMENOrdering Facility: [facility] Address: [address] [place] [address] Performed By: #### A LLBG ####[facility] LABCLIA [id number] [place] [address] [place] pH (Bld) 7.42 [pH] Normal 7.35-7.45 [facility] Comment on above: Order Comment: Speci men Type: ARTERIAL BLOOD SPECIMENOrdering Facility: [facility] Address: [address] [place], [place] [address] Performed By: #### A LLBG ####[facility] LABCLIA [id number] [place] [address] [place] pH adjusted to patient's actual temperature (Bld) 7.39 Normal 7.35-7.45 [facility] Comment on above: Order Comment: Speci men Type: ARTERIAL BLOOD SPECIMENOrdering Facility: [facility] Address: [address] [place], [place] [address] Performed By: #### A LLBG ####[facility] LABCLIA [id number] [place] [address] [place] Potassium [Moles/Vol] 4.1 mmol/L Normal 3.5-5.0 [facility] Comment on above: Order Comment: Speci men Type: ARTERIAL BLOOD SPECIMENOrdering Facility: [facility] Address: [address] Performed By: #### A LLBG ####[facility] LABCLIA [id number] [place] [address] [place] Sodium [Moles/Vol] 141 mmol/L Normal 136-144 [facility] Comment on above: Order Comment: Speci men Type: ARTERIAL BLOOD SPECIMENOrdering Facility: [facility] Address: [address] Performed By: #### A LLBG ####[facility] LABCLIA [id number] [place] [address] [place] Base deficit (BldA) [Moles/Vol] -4 mmol/L Low -2-0 [facility] Comment on above: Order Comment: Speci men Type: ARTERIAL BLOOD SPECIMENOrdering Facility: [facility] Address: [address] Performed By: #### A LLBG ####[facility] LABCLIA [id number] [place] [address] [place] Body temperature 98.6 [degF] Normal [facility] Comment on above: Order Comment: Speci men Type: ARTERIAL BLOOD SPECIMENOrdering Facility: [facility] Address: [address] Performed By: #### A LLBG ####[facility] LABCLIA [id number] [place] [address] [place] Calcium.ionized (Bld) [Mass/Vol] 1.12 mmol/L Normal 1.08-1.30 [facility] Comment on above: Order Comment: Speci men Type: ARTERIAL BLOOD SPECIMENOrdering Facility: [facility] Address: [address] Performed By: #### A LLBG ####[facility] LABCLIA [id number] [place] [address] [place] Calcium.ionized adjusted to pH 7.4 (BldA) [Moles/Vol] 1.14 mmol/L Normal 1.08-1.30 [facility] Comment on above: Order Comment: Speci men Type: ARTERIAL BLOOD SPECIMENOrdering Facility: [facility] Address: [address] [place] [address] Performed By: #### A LLBG ####[facility] [id number] [place] [address] [place] Carboxyhemoglobin (BldA) [Mass fraction] 0.8 % Normal 0.0-2.0 [facility] Comment on above: Order Comment: Speci men Type: ARTERIAL BLOOD SPECIMENOrdering Facility: [facility] Address: [address] [place] [address] Result Comment: Carb oxyhemoglobin Reference Range for Smokers: 2.0-8.0% Performed By: #### A LLBG ####[facility] [id number] [place] [address] [place] CO2 (Bld) [Partial pressure] 27 mm Hg Low 36-46 [facility] Comment on above: Order Comment: Speci men Type: ARTERIAL BLOOD SPECIMENOrdering Facility: [facility] Address: [address] [place], [place] [address] Performed By: #### A LLBG ####[facility] LABIA [id number] [place] [address] [place] CO2 [Moles/Vol] 19 mmol/L Low 22-28 [facility] Comment on above: Order Comment: Speci men Type: ARTERIAL BLOOD SPECIMENOrdering Facility: [facility] Address: [address] [place], [place] [address] Performed By: #### A LLBG ####[facility] [id number] [place] [address] [place] Glucose [Mass/Vol] 97 mg/dL Normal 60-105 [facility] Comment on above: Order Comment: Speci men Type: ARTERIAL BLOOD SPECIMENOrdering Facility: [facility] Address: [address] [place], [place] [address] Performed By: #### A LLBG ####[facility] LABCLIA [id number] [place] [address] [place] HCO3 (Bld) [Moles/Vol] 18 mmol/L Low 22-26 [facility] Comment on above: Order Comment: Speci men Type: ARTERIAL BLOOD SPECIMENOrdering Facility: [facility] Address: [address] [place], [place] [address] Performed By: #### A LLBG ####[facility] LABCLIA [id number] [place] [address] [place] Hematocrit (Bld) [Volume fraction] 31.8 % Low 39.0-51.0 [facility] Comment on above: Order Comment: Speci men Type: ARTERIAL BLOOD SPECIMENOrdering Facility: [facility] Address: [address] [place], [place] [address] Performed By: #### A LLBG ####[facility] LABCLIA [id number] [place] [address] [place] Hemoglobin (Bld) [Mass/Vol] 10.3 g/dL Low 13.0-17.0 [facility] Comment on above: Order Comment: Speci men Type: ARTERIAL BLOOD SPECIMENOrdering Facility: [facility] Address: [address] [place], [place] [address] Performed By: #### A LLBG ####[facility] LABCLIA [id number] [place] [address] [place] Lactate [Moles/Vol] 3.8 mmol/L High 0.5-2.2 [facility] Comment on above: Order Comment: Speci men Type: ARTERIAL BLOOD SPECIMENOrdering Facility: [facility] Address: [address] [place] [address] Performed By: #### A LLBG ####[facility] LABCLIA [id number] [place] [address] [place] LITERS 2 Liters/min Normal [facility] Comment on above: Order Comment: Speci men Type: ARTERIAL BLOOD SPECIMENOrdering Facility: [facility] Address: [address] Performed By: #### A LLBG ####[facility] LABIA [id number] [place] [address] [place] Methemoglobin (Bld) [Mass fraction] 1.1 % Normal 0.0-1.5 [facility] Comment on above: Order Comment: Speci men Type: ARTERIAL BLOOD SPECIMENOrdering Facility: [facility] Address: [address] Performed By: #### A LLBG ####[facility] LABIA [id number] [place] [address] [place] O2 THERAPY NC = Nasal Cannula Normal [facility] Comment on above: Order Comment: Speci men Type: ARTERIAL BLOOD SPECIMENOrdering Facility: [facility] Address: [address] Performed By: #### A LLBG ####[facility] LABIA [id number] [place] [address] [place] Oxygen (Bld) [Partial pressure] 144 mm Hg High 85-95 [facility] Comment on above: Order Comment: Speci men Type: ARTERIAL BLOOD SPECIMENOrdering Facility: [facility] Address: [address] [place] [address] Performed By: #### A LLBG ####[facility] LABCLIA [id number] [place] [id number] [place] Oxyhemoglobin (BldA) [Mass fraction] 97 % Normal 95-98 [facility] Comment on above: Order Comment: Speci men Type: ARTERIAL BLOOD SPECIMENOrdering Facility: [facility] Address: [address] [place], [place] [address] Performed By: #### A LLBG ####[facility] LABIA [id number] [place] [address] [place] pH (Bld) 7.44 [pH] Normal 7.35-7.45 [facility] Comment on above: Order Comment: Speci men Type: ARTERIAL BLOOD SPECIMENOrdering Facility: [facility] Address: [address] Performed By: #### A LLBG ####[facility] LABIA [id number] [place] [address] [place] Potassium [Moles/Vol] 3.7 mmol/L Normal 3.5-5.0 [facility] Comment on above: Order Comment: Speci men Type: ARTERIAL BLOOD SPECIMENOrdering Facility: [facility] Address: [address] Performed By: #### A LLBG ####[facility] LABIA [id number] [place] [address] [place] Sodium [Moles/Vol] 141 mmol/L Normal 136-144 [facility] Comment on above: Order Comment: Speci men Type: ARTERIAL BLOOD SPECIMENOrdering Facility: [facility] Address: [address] Performed By: #### A LLBG ####[facility] LABCLIA [id number] [place] [address] [place] Base deficit (BldA) [Moles/Vol] -4 mmol/L Low -2-0 [facility] Comment on above: Order Comment: Speci men Type: ARTERIAL BLOOD SPECIMENOrdering Facility: [facility] Address: [address] Performed By: #### A LLBG ####[facility] LABCLIA [id number] [place] [address] [place] Body temperature 98.6 [degF] Normal [facility] Comment on above: Order Comment: Speci men Type: ARTERIAL BLOOD SPECIMENOrdering Facility: [facility] Address: [address] [place] [address] Performed By: #### A LLBG ####[facility] LABCLIA [id number] [place] [address] [place] Calcium.ionized (Bld) [Mass/Vol] 1.06 mmol/L Low 1.08-1.30 [facility] Comment on above: Order Comment: Speci men Type: ARTERIAL BLOOD SPECIMENOrdering Facility: [facility] Address: [address] [place] [address] Performed By: #### A LLBG ####[facility] LABCLIA [id number] [address] [place] Calcium.ionized adjusted to pH 7.4 (BldA) [Moles/Vol] 1.10 mmol/L Normal 1.08-1.30 [facility] Comment on above: Order Comment: Speci men Type: ARTERIAL BLOOD SPECIMENOrdering Facility: SELECT [facility] Address: [address] [place] [address] Performed By: #### A LLBG ####[facility] LABIA [id number] [address] [place] Carboxyhemoglobin (BldA) [Mass fraction] 1.2 % Normal 0.0-2.0 [facility] Comment on above: Order Comment: Speci men Type: ARTERIAL BLOOD SPECIMENOrdering Facility: [facility] Address: [address] [address] Result Comment: Carb oxyhemoglobin Reference Range for Smokers: 2.0-8.0% Performed By: #### A LLBG ####[facility] LABCLIA [id number] [place] [address] [place] CO2 (Bld) [Partial pressure] 25 mm Hg Low 36-46 [facility] Comment on above: Order Comment: Speci men Type: ARTERIAL BLOOD SPECIMENOrdering Facility: [facility] Address: [address] [place] [address] Performed By: #### A LLBG ####[facility] LABCLIA [id number] [place] [address] [place] CO2 [Moles/Vol] 19 mmol/L Low 22-28 [facility] Comment on above: Order Comment: Speci men Type: ARTERIAL BLOOD SPECIMENOrdering Facility: [facility] Address: [address] [place] [address] Performed By: #### A LLBG ####[facility] LABCLIA [id number] [place] [address] [place] Glucose [Mass/Vol] 96 mg/dL Normal 60-105 [facility] Comment on above: Order Comment: Speci men Type: ARTERIAL BLOOD SPECIMENOrdering Facility: [facility] Address: [address] [place], [place] [address] Performed By: #### A LLBG ####[facility] LABCLIA [id number] [place] [address] [place] HCO3 (Bld) [Moles/Vol] 18 mmol/L Low 22-26 [facility] Comment on above: Order Comment: Speci men Type: ARTERIAL BLOOD SPECIMENOrdering Facility: [facility] Address: [address] [place], [place] [address] Performed By: #### A LLBG ####[facility] LABCLIA [id number] [place] [address] [place] Hematocrit (Bld) [Volume fraction] 35.0 % Low 39.0-51.0 [facility] Comment on above: Order Comment: Speci men Type: ARTERIAL BLOOD SPECIMENOrdering Facility: [facility] Address: [address] Performed By: #### A LLBG ####[facility] LABCLIA [id number] [place] [address] [place] Hemoglobin (Bld) [Mass/Vol] 11.4 g/dL Low 13.0-17.0 [facility] Comment on above: Order Comment: Speci men Type: ARTERIAL BLOOD SPECIMENOrdering Facility: [facility] Address: [address] Performed By: #### A LLBG ####[facility] LABCLIA [id number] [place] [address] [place] Lactate [Moles/Vol] 6.2 mmol/L High 0.5-2.2 [facility] Comment on above: Order Comment: Speci men Type: ARTERIAL BLOOD SPECIMENOrdering Facility: [facility] Address: [address] [place] [address] Performed By: #### A LLBG ####[facility] LABCLIA [id number] [place] [address] [place] LITERS 4 Liters/min Normal [facility] Comment on above: Order Comment: Speci men Type: ARTERIAL BLOOD SPECIMENOrdering Facility: [facility] Address: [address] Performed By: #### A LLBG ####[facility] LABCLIA [id number] [place] [address] [place] Methemoglobin (Bld) [Mass fraction] 1.4 % Normal 0.0-1.5 [facility] Comment on above: Order Comment: Speci men Type: ARTERIAL BLOOD SPECIMENOrdering Facility: [facility] Address: [address] [place], [place] [address] Performed By: #### A LLBG ####[facility] LABCLIA [id number] [place] [address] [place] O2 THERAPY NC = Nasal Cannula Normal [facility] Comment on above: Order Comment: Speci men Type: ARTERIAL BLOOD SPECIMENOrdering Facility: [facility] Address: [address] [place] [address] Performed By: #### A LLBG ####[facility] LABCLIA [id number] [place] [address] [place] Oxygen (Bld) [Partial pressure] 76 mm Hg Low 85-95 [facility] Comment on above: Order Comment: Speci men Type: ARTERIAL BLOOD SPECIMENOrdering Facility: [facility] Address: [address] [place], [place] [address] Performed By: #### A LLBG ####[facility] LABCLIA [id number] [place] [address] [place] Oxyhemoglobin (BldA) [Mass fraction] 94 % Low 95-98 [facility] Comment on above: Order Comment: Speci men Type: ARTERIAL BLOOD SPECIMENOrdering Facility: [facility] Address: [address] [place], [place] [address] Performed By: #### A LLBG ####[facility] LABCLIA [id number] [place] [address] [place] pH (Bld) 7.47 [pH] High 7.35-7.45 [facility] Comment on above: Order Comment: Speci men Type: ARTERIAL BLOOD SPECIMENOrdering Facility: [facility] Address: [address] [place], [place] [address] Performed By: #### A LLBG ####[facility] LABCLIA [id number] [place] [address] [place] Potassium [Moles/Vol] 3.9 mmol/L Normal 3.5-5.0 [facility] Comment on above: Order Comment: Speci men Type: ARTERIAL BLOOD SPECIMENOrdering Facility: [facility] Address: [address] [place] [address], [place] Performed By: #### A LLBG ####[facility] LABCLIA [id number] [place] [address] [place] Sodium [Moles/Vol] 142 mmol/L Normal 136-144 [facility] Comment on above: Order Comment: Speci men Type: ARTERIAL BLOOD SPECIMENOrdering Facility: [facility] Address: [address] [place] Performed By: #### A LLBG ####[facility] LABCLIA [id number] [place] [address] [place] BRIEF OP NOTon 09-19-2022 BRIEF OP NOT Normal [facility] Bacteria Bld Culton 09-20-19 23 Bacteria identified Cx Nom (Bld) CULTURE, BLOOD: No growth 5 days Normal [facility] Comment on above: Performed By: #### 6 00-7 ####[facility] LABCLIA [id number] [place] [address] [place] Bacteria Ur Culton 3 Bacteria identified Cx Nom (U) Abnormal [facility] Comment on above: Performed By: #### 6 30-4 ####[facility] LABCLIA [id number] [place] [address] [place] CBC panel Auto (Bld)on 09-19 Erythrocyte distribution width (RBC) [Ratio] 14.5 % Normal 11.5-15.0 [facility] Comment on above: Order Comment: Speci men Type: BLOOD SPECIMENOrdering Facility: [facility] Address: [address] [place] Performed By: #### 5 8410-2 ####[facility] LABCLIA [id number] [place] [address] [place] Hematocrit (Bld) [Volume fraction] 36.1 % Low 39.0-51.0 [facility] Comment on above: Order Comment: Speci men Type: BLOOD SPECIMENOrdering Facility: [facility] Address: [address] [address] Performed By: #### 5 8410-2 ####[facility] LABCLIA [id number] [place] [address] [place] Hemoglobin (Bld) [Mass/Vol] 11.3 g/dL Low 13.0-17.0 [facility] Comment on above: Order Comment: Speci men Type: BLOOD SPECIMENOrdering Facility: [facility] Address: [address] [address] Performed By: #### 5 8410-2 ####[facility] LABCLIA [id number] [address] [place] MCH (RBC) [Entitic mass] 27.8 pg Normal 26.0-34.0 [facility] Comment on above: Order Comment: Speci men Type: BLOOD SPECIMENOrdering Facility: [facility] Address: [address] [address] Performed By: #### 5 8410-2 ####[facility] LABIA [id number] [address] [place] MCHC (RBC) [Mass/Vol] 31.3 g/dL Normal 30.5-36.0 [facility] Comment on above: Order Comment: Speci men Type: BLOOD SPECIMENOrdering Facility: [facility] Address: [address] Performed By: #### 5 8410-2 ####[facility] LABIA [id number] [place] [address] [place] MCV (RBC) [Entitic vol] 88.9 fL Normal 80.0-100.0 [facility] Comment on above: Order Comment: Speci men Type: BLOOD SPECIMENOrdering Facility: [facility] Address: [address] [place], [place] [address] Performed By: #### 5 8410-2 ####[facility] LABCLIA [id number] [place] [address] [place] Nucleated RBC (Bld) [#/Vol] 10*3/uL Normal <0.01 [facility] Comment on above: Order Comment: Speci men Type: BLOOD SPECIMENOrdering Facility: [facility] Address: [address] [place] [address] Performed By: #### 5 8410-2 ####[facility] LABCLIA [id number] [place] [address] [place] Platelet mean volume (Bld) [Entitic vol] 10.0 fL Normal 9.0-12.7 [facility] Comment on above: Order Comment: Speci men Type: BLOOD SPECIMENOrdering Facility: [facility] Address: [address] [place], [place] [address] Performed By: #### 5 8410-2 ####[facility] LABCLIA [id number] [place] [address] [place] Platelets (Bld) [#/Vol] 164 10*3/uL Normal 150-400 [facility] Comment on above: Order Comment: Speci men Type: BLOOD SPECIMENOrdering Facility: [facility] Address: [address] [place] [id number] Performed By: #### 5 8410-2 ####[facility] LABCLIA [id number] [place] [address] [place] RBC (Bld) [#/Vol] 4.06 10*6/uL Low 4.20-6.00 [facility] Comment on above: Order Comment: Speci men Type: BLOOD SPECIMENOrdering Facility: [facility] Address: [address] [place], [place] [address] Performed By: #### 5 8410-2 ####[facility] LABCLIA [id number] [place] [address] [place] WBC (Bld) [#/Vol] 5.21 10*3/uL Normal 3.70-11.00 [facility] Comment on above: Order Comment: Speci men Type: BLOOD SPECIMENOrdering Facility: [facility] Address: [address] [place] [address] Performed By: #### 5 8410-2 ####[facility] LABCLIA [id number] [place] [address] [place] CK SerPl-cCncon 09-19-2022 CK [Catalytic activity/Vol] 1838 U/L High 51-298 [facility] Comment on above: Order Comment: Speci men Type: BLOOD SPECIMENOrdering Facility: [facility] Address: [address] [place] [address] Performed By: #### 2 157-6, 71730-2, 2777-1, 24644-7 ####[facility] LABCLIA [id number] [place] [address] [place] CONSULTon 09-19-2022 CONSULT Normal [facility] CONSULT Normal [facility] Comprehensive metabolic 2000 panelon 09-19-2022 Albumin [Mass/Vol] 3.4 g/dL Low 3.9-4.9 [facility] Comment on above: Order Comment: Speci men Type: BLOOD SPECIMENOrdering Facility: [facility] Address: [address] [place], [place] [address] Performed By: #### 2 157-6, 76796-6, 2777-1, 84817-9 ####[facility] LABCLIA [id number] [place] [address] [place] ALP [Catalytic activity/Vol] 90 U/L Normal 38-113 [facility] Comment on above: Order Comment: Speci men Type: BLOOD SPECIMENOrdering Facility: [facility] Address: [address] [place] [address] Performed By: #### 2 157-6, 48940-9, 277-1, ####[facility] LABCLIA [id number] [place] [address] [place] ALT [Catalytic activity/Vol] 11 U/L Normal 10-54 [facility] Comment on above: Order Comment: Speci men Type: BLOOD SPECIMENOrdering Facility: [facility] Address: [address] [place] [address] Performed By: #### 2 157-6, 12517-6, 277-, ####[facility] LABCLIA [id number] [place] [address] [place] Anion gap [Moles/Vol] 21 mmol/L High 9-18 [facility] Comment on above: Order Comment: Speci men Type: BLOOD SPECIMENOrdering Facility: [facility] Address: [address] [place] [address] Performed By: #### 2 157-6, 72279-2, 27709-25, ####[facility] LABIA [id number] [place] [address] [place] AST [Catalytic activity/Vol] 29 U/L Normal 14-40 [facility] Comment on above: Order Comment: Speci men Type: BLOOD SPECIMENOrdering Facility: [facility] Address: [address] [place], [place] [address] Performed By: #### 2 157-6, 15067-8, 277-1, ####[facility] LABIA [id number] [place] [id number] [place] Bilirubin [Mass/Vol] 0.6 mg/dL Normal 0.2-1.3 [facility] Comment on above: Order Comment: Speci men Type: BLOOD SPECIMENOrdering Facility: [facility] Address: [address] [place] [address] Performed By: #### 2 157-6, 41889-5, 2776-, ####[facility] LABCLIA [id number] [address] [address] [place] Calcium [Mass/Vol] 8.5 mg/dL Normal 8.5-10.2 [facility] Comment on above: Order Comment: Speci men Type: BLOOD SPECIMENOrdering Facility: [facility] Address: [address] [place], [place] [address] Performed By: #### 2 157-6, 81006-1, 2776-03, ####[facility] LABCLIA [id number] [place] [address] [place] Chloride [Moles/Vol] 105 mmol/L Normal 97-105 [facility] Comment on above: Order Comment: Speci men Type: BLOOD SPECIMENOrdering Facility: [facility] Address: [address] [place], [place] [address] Performed By: #### 2 157-6, 48410-7, 2776-03, ####[facility] LABCLIA [id number] [place] [address] [place] CO2 [Moles/Vol] 14 mmol/L Low 22-30 [facility] Comment on above: Order Comment: Speci men Type: BLOOD SPECIMENOrdering Facility: [facility] Address: [address] [place], [place] [address] Performed By: #### 2 157-6, 66380-6, 2776-03, ####[facility] LABCLIA [id number] [place] [id number] [place] Creatinine [Mass/Vol] 2.45 mg/dL High 0.73-1.22 [facility] Comment on above: Order Comment: Speci men Type: BLOOD SPECIMENOrdering Facility: [facility] Address: [address] [place], [place] [address] Performed By: #### 2 157-6, 06252-3, 2777-, ####[facility] LABCLIA [id number] [place] [address] [place] ESTIMATED GLOMERULAR FILTRATION RATE 28 mL/min/1.73m??? Low >=60 [facility] Comment on above: Order Comment: Cierra cartwright Type: BLOOD SPECIMENOrdering Facility: [facility] Address: [address] [place] [address] Result Comment: Ignacia mated Glomerular Filtration Rate (eGFR) is calculated using the 2020 CKD-EPI creatinine equation. This equation utilizes serum creatinine, sex, and age as parameters. The creatinine assay has traceable calibration to isotope dilution-mass spectrometry. Refer to KDIGO guidelines for clinical interpretation. In patients with unstable renal function, e.g. those with acute kidney injury, the eGFR may not accurately reflect actual GFR. Performed By: #### 2 157-6, 37122-3, 2776-03, ####[facility] LABCLIA [id number] [place] [address] [place] Glucose [Mass/Vol] 86 mg/dL Normal 74-99 [facility] Comment on above: Order Comment: Cierra cartwright Type: BLOOD SPECIMENOrdering Facility: [facility] Address: [address] [place] [address] Result Comment: The [place] Diabetes [employer] (ADA) provides guidance for cutoff values for fasting glucose and random glucose. The ADA defines fasting as no caloric intake for at least 8 hours. Fasting plasma glucose results between 100 to 125 mg/dL indicate increased risk for diabetes (prediabetes).Fasting plasma glucose results greater than or equal to 126 mg/dL meet the criteria for diagnosis of diabetes. In the absence of unequivocal hyperglycemia, results should be confirmed by repeat testing. In a patient with classic symptoms of hyperglycemia or hyperglycemic crisis, random plasma glucose results greater than or equal to 200 mg/dL meet the criteria for diagnosis of diabetes.Reference: Standards of Medical Care in Diabetes 2016, [place] Diabetes Association. Diabetes Care. 2016.39(Suppl 1). Performed By: #### 2 157-6, 74017-7, 2776-, ####[facility] LABCLIA [id number] [address] [address] [place] Potassium [Moles/Vol] 4.7 mmol/L Normal 3.7-5.1 [facility] Comment on above: Order Comment: Speci men Type: BLOOD SPECIMENOrdering Facility: [facility] Address: [address] [place] [address] Performed By: #### 2 157-6, 07212-6, 2776-03, ####[facility] LABIA [id number] [place] [address] [place] Protein [Mass/Vol] 6.7 g/dL Normal 6.3-8.0 [facility] Comment on above: Order Comment: Speci men Type: BLOOD SPECIMENOrdering Facility: [facility] Address: [address] [place], [place] [address] Performed By: #### 2 157-6, 57810-3, 2776-03, ####[facility] LABIA [id number] [place] [address] [place] Sodium [Moles/Vol] 140 mmol/L Normal 136-144 [facility] Comment on above: Order Comment: Speci men Type: BLOOD SPECIMENOrdering Facility: [facility] Address: [address] [place], [place] [address] Performed By: #### 2 157-6, 70351-3, 2776-03, ####[facility] LABIA [id number] [place] [id number] [place] Urea nitrogen [Mass/Vol] 28 mg/dL High 9-24 [facility] Comment on above: Order Comment: Speci men Type: BLOOD SPECIMENOrdering Facility: [facility] Address: [address] [place], [place] [address] Performed By: #### 2 157-6, 59908-6, 2776-03, ####[facility] LABIA [id number] [place] [address] [place] ECG COMPLETEon 09-19-2022 ECG COMPLETE Normal [facility] Gas and Carbon monoxide pane l (BldV)on 09-19-2022 BASE DEFICIT, VENOUS -12 mmol/L Low -2-0 [facility] Comment on above: Order Comment: Speci men Type: VENOUS BLOOD SPECIMENOrdering Facility: [facility] Address: [address] [place] [address] Performed By: #### 2 4344-4 ####[facility] [id number] [place] [address] [place] Body temperature 98.6 [degF] Normal [facility] Comment on above: Order Comment: Speci men Type: VENOUS BLOOD SPECIMENOrdering Facility: [facility] Address: [address] [place] [address] Performed By: #### 2 4344-4 ####[facility] [id number] [place] [address] [place] Calcium.ionized (Bld) [Mass/Vol] 1.20 mmol/L Normal 1.08-1.30 [facility] Comment on above: Order Comment: Speci men Type: VENOUS BLOOD SPECIMENOrdering Facility: [facility] Address: [address] [place], [place] [address] Performed By: #### 2 4344-4 ####[facility] [id number] [place] [address] [place] Calcium.ionized adjusted to pH 7.4 (BldA) [Moles/Vol] Normal [facility] Comment on above: Order Comment: Speci men Type: VENOUS BLOOD SPECIMENOrdering Facility: [facility] Address: [address] [place] [address] Result Comment: Aletha ured pH is <7.20. Unable to report normalized Calcium. Performed By: #### 2 4344-4 ####[facility] LABCLIA [id number] [address] STATES OF [facility] Carboxyhemoglobin (BldV) [Mass fraction] 1.0 % Normal 0.0-2.0 [facility] Comment on above: Order Comment: Speci men Type: VENOUS BLOOD SPECIMENOrdering Facility: [facility] Address: [address] [place] [address] Result Comment: Carb oxyhemoglobin Reference Range for Smokers: 2.0-8.0% Performed By: #### 2 4344-4 ####[facility] LABIA [id number] [address] [place] CO2 (BldV) [Partial pressure] 48 mm[Hg] Normal 42-55 [facility] Comment on above: Order Comment: Speci men Type: VENOUS BLOOD SPECIMENOrdering Facility: [facility] Address: [address] [place] [address] Performed By: #### 2 4344-4 ####[facility] LABIA [id number] [address] [place] CO2 [Moles/Vol] 18 mmol/L Low 25-29 [facility] Comment on above: Order Comment: Speci men Type: VENOUS BLOOD SPECIMENOrdering Facility: [facility] Address: [address] [place] [address] Performed By: #### 2 4344-4 ####[facility] LABIA [id number] [address] [place] COMMENTS Critical Value: pH, pHTC Urgent Value: LACT Normal [facility] Comment on above: Order Comment: Speci men Type: VENOUS BLOOD SPECIMENOrdering Facility: [facility] Address: [address] [address] Performed By: #### 2 4344-4 ####[facility] LABIA [id number] [place] [address] [place] DATE/TIME NOTIFIED [id number] AM Normal [facility] Comment on above: Order Comment: Speci men Type: VENOUS BLOOD SPECIMENOrdering Facility: [facility] Address: [address] [place] [address] Performed By: #### 2 4344-4 ####[facility] LABCLIA [id number] [place] [address] [place] Glucose [Mass/Vol] 108 mg/dL High 60-105 [facility] Comment on above: Order Comment: Speci men Type: VENOUS BLOOD SPECIMENOrdering Facility: [facility] Address: [address] [place], [place] [address] Performed By: #### 2 4344-4 ####[facility] LABCLIA [id number] [place] [address] [place] HCO3 (Bld) [Moles/Vol] 16 mmol/L Low 24-28 [facility] Comment on above: Order Comment: Speci men Type: VENOUS BLOOD SPECIMENOrdering Facility: [facility] Address: [address] [place], [place] [address] Performed By: #### 2 4344-4 ####[facility] LABCLIA [id number] [place] [address] [place] Hematocrit (Bld) [Volume fraction] 36.9 % Low 39.0-51.0 [facility] Comment on above: Order Comment: Speci men Type: VENOUS BLOOD SPECIMENOrdering Facility: [facility] Address: [address] [place], [place] [address] Performed By: #### 2 4344-4 ####[facility] LABCLIA [id number] [place] [address] [place] Hemoglobin (Bld) [Mass/Vol] 12.0 g/dL Low 13.0-17.0 [facility] Comment on above: Order Comment: Speci men Type: VENOUS BLOOD SPECIMENOrdering Facility: [facility] Address: [address] [place] [address] Performed By: #### 2 4344-4 ####[facility] LABCLIA [id number] [place] [address] [place] Lactate [Moles/Vol] 11.2 mmol/L High 0.5-2.2 [facility] Comment on above: Order Comment: Speci men Type: VENOUS BLOOD SPECIMENOrdering Facility: [facility] Address: [address] Performed By: #### 2 4344-4 ####[facility] LABIA [id number] [place] [address] [place] Methemoglobin (Bld) [Mass fraction] 0.9 % Normal 0.0-1.5 [facility] Comment on above: Order Comment: Speci men Type: VENOUS BLOOD SPECIMENOrdering Facility: [facility] Address: [address] Performed By: #### 2 4344-4 ####[facility] LABIA [id number] [place] [address] [place] NOTIFIED WHOM Rosy Curtis RN G62, Analia Lizama Normal [facility] Comment on above: Order Comment: Speci men Type: VENOUS BLOOD SPECIMENOrdering Facility: [facility] Address: [address] [place] [address] Performed By: #### 2 4344-4 ####[facility] LABIA [id number] [place] [address] [place] O2 THERAPY RA=Room Air Normal [facility] Comment on above: Order Comment: Speci men Type: VENOUS BLOOD SPECIMENOrdering Facility: [facility] Address: [address] [place] [address] Performed By: #### 2 4344-4 ####[facility] LABCLIA [id number] [place] [address] [place] Oxygen (BldV) [Partial pressure] 40 mm[Hg] Normal 35-45 [facility] Comment on above: Order Comment: Speci men Type: VENOUS BLOOD SPECIMENOrdering Facility: [facility] Address: [address] [place] [address] Performed By: #### 2 4344-4 ####[facility] LABCLIA [id number] [place] [address] [place] Oxygen saturation in Venous blood 56 % Low 60-85 [facility] Comment on above: Order Comment: Speci men Type: VENOUS BLOOD SPECIMENOrdering Facility: [facility] Address: [address] [place] [address] Performed By: #### 2 4344-4 ####[facility] LABCLIA [id number] [place] [address] [place] Oxyhemoglobin (BldV) [Mass fraction] 55 % Low 60-85 [facility] Comment on above: Order Comment: Speci men Type: VENOUS BLOOD SPECIMENOrdering Facility: [facility] Address: [address] [place], [place] [address] Performed By: #### 2 4344-4 ####[facility] LABCLIA [id number] [place] [address] [place] pH (BldV) 7.16 [pH] Critically low 7.32-7.42 [facility] Comment on above: Order Comment: Speci men Type: VENOUS BLOOD SPECIMENOrdering Facility: [facility] Address: [address] [place], [place] [address] Performed By: #### 2 4344-4 ####[facility] LABCLIA [id number] [place] [address] [place] Potassium [Moles/Vol] 5.8 mmol/L High 3.5-5.0 [facility] Comment on above: Order Comment: Speci men Type: VENOUS BLOOD SPECIMENOrdering Facility: [facility] Address: [address] [place] [id number] Performed By: #### 2 4344-4 ####[facility] LABIA [id number] [place] [address] [place] Sodium [Moles/Vol] 141 mmol/L Normal 136-144 [facility] Comment on above: Order Comment: Speci men Type: VENOUS BLOOD SPECIMENOrdering Facility: [facility] Address: [address] [place] [address] Performed By: #### 2 4344-4 ####[facility] [id number] [place] [address] [place] HISTORY PHYSICALon HISTORY PHYSICAL Normal [facility] HISTORY PHYSICAL Normal [facility] IR NEPHROSTOMY TUBE PLACEon 09-19-[address] Normal [facility] Magnesium SerPl-mCncon 09-19 Magnesium [Mass/Vol] 1.4 mg/dL Low 1.7-2.3 [facility] Comment on above: Order Comment: Speci men Type: BLOOD SPECIMENOrdering Facility: [facility] Address: [address] [place] [address] Performed By: #### 2 157-6, 03139-0, 2777-1, 99071-0 ####[facility] [id number] [place] [address] [place] NURSING PROGon 09-19-2022 NURSING PROG Normal [facility] PT EDon 09-19-2022 PT ED Normal [facility] PT panel Coag (PPP)on 2022 INR Coag (PPP) [Relative time] 1.3 {INR} Normal 0.9-1.3 [facility] Comment on above: Order Comment: Speci men Type: BLOOD SPECIMENOrdering Facility: [facility] Address: [address] [place] [address] Result Comment: Kendra min K Antagonist (VKA) Therapeutic Range: INR 2 to 3 (Target INR of 2.5)Note: For patients treated with VKA drugs, such as warfarin, the [employer] 2012 Guideline recommends a therapeutic INR range of 2 to 3 (target INR of 2.5). This recommendation includes high-risk patients with antiphospholipid syndrome with previous arterial or venous thromboembolism, current-generation mechanical or bioprosthetic aortic heart valve replacement.Note: Patients with mechanical aortic valve replacement and additional risk factors for thromboembolic events (atrial fibrillation, previous thromboembolism, LV dysfunction, hypercoagulable conditions) or an older generation mechanical AVR (i.e., ball in-Cage) or any mechanical MVR should have a INR therapeutic range of 2.5 to 3.5 (target INR of 3).Farzaneh GH, et al. Chest 2012, 141:7S-47SNishelise RA, et al. [facility] 2017, 70: 252-289 Performed By: #### 3 4528-0 ####[facility] LABCLIA [id number] [place] [address] [place] PT Coag (PPP) [Time] 13.7 s High 9.7-13.0 [facility] Comment on above: Order Comment: Speci men Type: BLOOD SPECIMENOrdering Facility: [facility] Address: [address] [place] [address] Performed By: #### 3 4528-0 ####[facility] LABIA [id number] [place] [address] [place] Phosphate SerPl-mCncon 09-19 Phosphate [Mass/Vol] 5.4 mg/dL High 2.7-4.8 [facility] Comment on above: Order Comment: Speci men Type: BLOOD SPECIMENOrdering Facility: [facility] Address: [address] [place] [address] Performed By: #### 2 157-6, 07435-1, 2777-1, 13581-5 ####[facility] LABCLIA [id number] [place] [address] [place] SARS-CoV-2 RNA Resp Ql ROSSANA+p robeon 09-19-2022 SARS-CoV-2 (COVID-19) RNA ROSSANA+probe Ql (Resp) COVID 19 RESULT: Not detected The method used is RT-PCR or an equivalent NAAT method. Reference Range(the expected result in uninfected individuals): Not detected Normal [facility] Comment on above: Performed By: #### 9 4500-6 ####[facility] LABIA [id number] [address] [place] STAPH AUREUS PCRon S. aureus and MRSA panel ROSSANA+probe (Nose) Abnormal Negative [facility] Comment on above: Order Comment: Speci men Type: SWAB OF INTERNAL NOSEOrdering Facility: [facility] Address: [address] [place] [address] Result Comment: Posi tive for Staphylococcus aureus by PCR.Negative for MRSA by PCR Performed By: #### S APCR ####[facility] [id number] [place] [address] [place] Urinalysis complete panel (U )on 09-19-2022 Bacteria LM.HPF (Urine sed) [#/Area] Moderate Abnormal None Seen [facility] Comment on above: Order Comment: Speci men Type: URINE SPECIMENOrdering Facility: [facility] Address: [address] [place] [address] Performed By: #### 2 4356-8 ####[facility] LABIA [id number] [place] [address] [place] Bilirubin Ql (U) Negative Normal Negative [facility] Comment on above: Order Comment: Speci men Type: URINE SPECIMENOrdering Facility: [facility] Address: [address] [place] [address] Performed By: #### 2 4356-8 ####[facility] LABIA [id number] [place] [address] [place] Clarity (Unsp spec) Turbid Abnormal Clear Moi [facility] Comment on above: Order Comment: Speci men Type: URINE SPECIMENOrdering Facility: [facility] Address: [address] Performed By: #### 2 4356-8 ####[facility] LABCLIA [id number] [place] [address] [place] Color (U) Yellow Normal Yellow [facility] Comment on above: Order Comment: Speci men Type: URINE SPECIMENOrdering Facility: [facility] Address: [address] Performed By: #### 2 4356-8 ####[facility] LABCLIA [id number] [place] [address] [place] Glucose Test strip (U) [Mass/Vol] Negative Normal Trace, Negative [facility] Comment on above: Order Comment: Speci men Type: URINE SPECIMENOrdering Facility: [facility] Address: [address] Performed By: #### 2 6-8 ####[facility] LABCLIA [id number] [place] [address] [place] Hemoglobin Ql (U) 3+ Abnormal Negative, Trace [facility] Comment on above: Order Comment: Speci men Type: URINE SPECIMENOrdering Facility: [facility] Address: [address] Performed By: #### 2 4356-8 ####[facility] LABCLIA [id number] [place] [address] [place] Ketones Ql (U) Negative Normal Trace, Negative [facility] Comment on above: Order Comment: Speci men Type: URINE SPECIMENOrdering Facility: [facility] Address: [address] [place] [address] Performed By: #### 2 4356-8 ####[facility] LABCLIA [id number] [place] [address] [place] Leukocyte esterase Test strip Ql (U) 500 Arnulfo/uL Abnormal Negative, 25 Arnulfo/uL [facility] Comment on above: Order Comment: Speci men Type: URINE SPECIMENOrdering Facility: [facility] Address: [address] [place] [address] Performed By: #### 2 4356-8 ####[facility] LABCLIA [id number] [place] [address] [place] Nitrite Ql (U) 2+ Abnormal Negative [facility] Comment on above: Order Comment: Speci men Type: URINE SPECIMENOrdering Facility: [facility] Address: [address] [place] [address] Performed By: #### 2 4356-8 ####[facility] LABIA [id number] [place] [address] [place] pH (U) 6.0 [pH] Normal 5.0-8.0 [facility] Comment on above: Order Comment: Speci men Type: URINE SPECIMENOrdering Facility: [facility] Address: [address] [place] [address] Performed By: #### 2 4356-8 ####[facility] LABIA [id number] [place] [address] [place] Protein (U) [Mass/Vol] 2+ Abnormal Trace , Negative [facility] Comment on above: Order Comment: Speci men Type: URINE SPECIMENOrdering Facility: [facility] Address: [address] [place] [address] Performed By: #### 2 4356-8 ####[facility] LABIA [id number] [place] [address] [place] RBC LM.HPF (Urine sed) [#/Area] /[HPF] Abnormal 0-3 /HPF [facility] Comment on above: Order Comment: Speci men Type: URINE SPECIMENOrdering Facility: [facility] Address: [address] [place] [address] Performed By: #### 2 4356-8 ####[facility] LABCLIA [id number] [address] [place] Specific gravity (U) [Rel density] 1.015 Normal 1.005-1.030 [facility] Comment on above: Order Comment: Speci men Type: URINE SPECIMENOrdering Facility: [facility] Address: [address] [place] [address] Performed By: #### 2 4356-8 ####[facility] LABCLIA [id number] [place] [address] [place] Urobilinogen Ql (U) Negative Normal Negative [facility] Comment on above: Order Comment: Speci men Type: URINE SPECIMENOrdering Facility: [facility] Address: [address] [place] [address] Performed By: #### 2 4356-8 ####[facility] LABCLIA [id number] [place] [address] [place] WBC LM.HPF (Urine sed) [#/Area] /[HPF] Abnormal 0-5 /HPF [facility] Comment on above: Order Comment: Speci men Type: URINE SPECIMENOrdering Facility: [facility] Address: [address] [place], [place] [address] Performed By: #### 2 4356-8 ####[facility] LABCLIA [id number] [place] [address] [place] Urinalysis complete pnl Uron 09-19-2022 Urinalysis complete panel (U) Normal [facility] Comment on above: Order Comment: Speci men Type: URINE SPECIMENOrdering Facility: [facility] Address: [address] [place] [address] Performed By: #### 2 4356-8 ####[facility] LABIA [id number] [place] [address] [place] XR ABDOMEN 1V SUPINEon 09-19 XR ABDOMEN 1V SUPINE Normal [facility] XR CHEST 1V FRONTAL PORTon 0 09-19-2022 XR CHEST 1V FRONTAL PORT Normal [facility] XR CHEST 1V FRONTAL PORT Normal [facility] CNOVon 09-01-2022 CNOV Normal [facility] CNPNon 08-17-2022 CNPN Normal [facility] CASE MANAGEMon 08-13-2022 CASE MANAGEM Normal [facility] CNPNon 08-13-2022 CNPN Normal [facility] CASE MANAGEMon 08-12-2022 CASE MANAGEM Normal [facility] CONSULT PROGon 08-12-2022 CONSULT PROG Normal [facility] Basic metabolic 2000 panelon 08-11-2022 Anion gap [Moles/Vol] 10 mmol/L Normal -18 [facility] Comment on above: Order Comment: Speci men Type: BLOOD SPECIMENOrdering Facility: [facility] Address: [address] Performed By: #### 2 4321-2 ####[facility] LABIA [id number] [place] [address] [place] Calcium [Mass/Vol] 8.7 mg/dL Normal 8.5-10.2 [facility] Comment on above: Order Comment: Speci men Type: BLOOD SPECIMENOrdering Facility: [facility] Address: [address] [place] [address] Performed By: #### 2 4321-2 ####[facility] LABIA [id number] [place] [address] [place] Chloride [Moles/Vol] 107 mmol/L High 97-105 [facility] Comment on above: Order Comment: Speci men Type: BLOOD SPECIMENOrdering Facility: [facility] Address: [address] [place] [address] Performed By: #### 2 4321-2 ####[facility] LABCLIA [id number] [place] [address] [place] CO2 [Moles/Vol] 23 mmol/L Normal 22-30 [facility] Comment on above: Order Comment: Speci men Type: BLOOD SPECIMENOrdering Facility: [facility] Address: [address] [place] [address] Performed By: #### 2 4321-2 ####[facility] LABIA [id number] [address] [place] Creatinine [Mass/Vol] 0.73 mg/dL Normal 0.73-1.22 [facility] Comment on above: Order Comment: Speci men Type: BLOOD SPECIMENOrdering Facility: [facility] Address: [address] [place] [address] Performed By: #### 2 4321-2 ####[facility] LABIA [id number] [address] STATES OF [facility] ESTIMATED GLOMERULAR FILTRATION RATE 100 mL/min/1.73m??? Normal >=60 [facility] Comment on above: Order Comment: Speci men Type: BLOOD SPECIMENOrdering Facility: [facility] Address: [address] [place] [address] Result Comment: Ignacia mated Glomerular Filtration Rate (eGFR) is calculated using the 2020 CKD-EPI creatinine equation. This equation utilizes serum creatinine, sex, and age as parameters. The creatinine assay has traceable calibration to isotope dilution-mass spectrometry. Refer to KDIGO guidelines for clinical interpretation. In patients with unstable renal function, e.g. those with acute kidney injury, the eGFR may not accurately reflect actual GFR. Performed By: #### 2 4321-2 ####[facility] LABIA [id number] [place] [address] [place] Glucose [Mass/Vol] 74 mg/dL Normal 74-99 [facility] Comment on above: Order Comment: Speci men Type: BLOOD SPECIMENOrdering Facility: [facility] Address: [address] [place] [address] Result Comment: The [place] Diabetes [employer] (ADA) provides guidance for cutoff values for fasting glucose and random glucose. The ADA defines fasting as no caloric intake for at least 8 hours. Fasting plasma glucose results between 100 to 125 mg/dL indicate increased risk for diabetes (prediabetes).Fasting plasma glucose results greater than or equal to 126 mg/dL meet the criteria for diagnosis of diabetes. In the absence of unequivocal hyperglycemia, results should be confirmed by repeat testing. In a patient with classic symptoms of hyperglycemia or hyperglycemic crisis, random plasma glucose results greater than or equal to 200 mg/dL meet the criteria for diagnosis of diabetes.Reference: Standards of Medical Care in Diabetes 2016, [place] [employer]. Diabetes Care. 2016.39(Suppl 1). Performed By: #### 2 4321-2 ####[facility] LABCLIA [id number] [place] [address] [place] Potassium [Moles/Vol] 4.0 mmol/L Normal 3.7-5.1 [facility] Comment on above: Order Comment: Speci men Type: BLOOD SPECIMENOrdering Facility: [facility] Address: [address] [place] [address] Performed By: #### 2 4321-2 ####[facility] LABCLIA [id number] [place] [address] [place] Sodium [Moles/Vol] 140 mmol/L Normal 136-144 [facility] Comment on above: Order Comment: Speci men Type: BLOOD SPECIMENOrdering Facility: [facility] Address: [address] [place] [address] Performed By: #### 2 4321-2 ####[facility] LABCLIA [id number] [place] [address] [place] Urea nitrogen [Mass/Vol] 7 mg/dL Low 9-24 [facility] Comment on above: Order Comment: Speci men Type: BLOOD SPECIMENOrdering Facility: [facility] Address: [address] [place] [address] Performed By: #### 2 4321-2 ####[facility] LABCLIA [id number] [address] [place] CBC panel Auto (Bld)on 08-11 Erythrocyte distribution width (RBC) [Ratio] 13.6 % Normal 11.5-15.0 [facility] Comment on above: Order Comment: Speci men Type: BLOOD SPECIMENOrdering Facility: [facility] Address: [address] Performed By: #### 5 8410-2 ####[facility] LABIA [id number] [address] [place] Hematocrit (Bld) [Volume fraction] 28.0 % Low 39.0-51.0 [facility] Comment on above: Order Comment: Speci men Type: BLOOD SPECIMENOrdering Facility: [facility] Address: [address] Performed By: #### 5 8410-2 ####[facility] LABIA [id number] [address] [place] Hemoglobin (Bld) [Mass/Vol] 9.1 g/dL Low 13.0-17.0 [facility] Comment on above: Order Comment: Speci men Type: BLOOD SPECIMENOrdering Facility: [facility] Address: [address] [place] [address] Performed By: #### 5 8410-2 ####[facility] LABIA [id number] [place] [address] [place] MCH (RBC) [Entitic mass] 28.3 pg Normal 26.0-34.0 [facility] Comment on above: Order Comment: Speci men Type: BLOOD SPECIMENOrdering Facility: [facility] Address: [address] Performed By: #### 5 8410-2 ####[facility] LABCLIA [id number] [place] [address] [place] MCHC (RBC) [Mass/Vol] 32.5 g/dL Normal 30.5-36.0 [facility] Comment on above: Order Comment: Speci men Type: BLOOD SPECIMENOrdering Facility: [facility] Address: [address] [place] [address] Performed By: #### 5 8410-2 ####[facility] LABIA [id number] [address] [place] MCV (RBC) [Entitic vol] 87.2 fL Normal 80.0-100.0 [facility] Comment on above: Order Comment: Speci men Type: BLOOD SPECIMENOrdering Facility: [facility] Address: [address] [place] [address] Performed By: #### 5 8410-2 ####[facility] LABIA [id number] [place] [address] [place] Nucleated RBC (Bld) [#/Vol] 10*3/uL Normal <0.01 [facility] Comment on above: Order Comment: Speci men Type: BLOOD SPECIMENOrdering Facility: [facility] Address: [address] [place] [address] Performed By: #### 5 8410-2 ####[facility] LABIA [id number] [place] [address] [place] Platelet mean volume (Bld) [Entitic vol] 9.5 fL Normal 9.0-12.7 [facility] Comment on above: Order Comment: Speci men Type: BLOOD SPECIMENOrdering Facility: [facility] Address: [address] [place] [address] Performed By: #### 5 8410-2 ####[facility] LABIA [id number] [place] [address] [place] Platelets (Bld) [#/Vol] 251 10*3/uL Normal 150-400 [facility] Comment on above: Order Comment: Speci men Type: BLOOD SPECIMENOrdering Facility: [facility] Address: [address] [place], [place] [address] Performed By: #### 5 8410-2 ####[facility] LABCLIA [id number] [place] [address] [place] RBC (Bld) [#/Vol] 3.21 10*6/uL Low 4.20-6.00 [facility] Comment on above: Order Comment: Speci men Type: BLOOD SPECIMENOrdering Facility: [facility] Address: [address] [place], [place] [address] Performed By: #### 5 8410-2 ####[facility] LABCLIA [id number] [place] [address] [place] WBC (Bld) [#/Vol] 4.70 10*3/uL Normal 3.70-11.00 [facility] Comment on above: Order Comment: Speci men Type: BLOOD SPECIMENOrdering Facility: [facility] Address: [address] [place], [place] [address] Performed By: #### 5 8410-2 ####[facility] LABCLIA [id number] [place] [address] [place] Basic metabolic 2000 panelon 08-10-2022 Anion gap [Moles/Vol] 11 mmol/L Normal 9-18 [facility] Comment on above: Order Comment: Speci men Type: BLOOD SPECIMENOrdering Facility: [facility] Address: [address] [place], [place] [address] Performed By: #### 2 4321-2 ####[facility] LABCLIA [id number] [place] [address] [place] Calcium [Mass/Vol] 9.1 mg/dL Normal 8.5-10.2 [facility] Comment on above: Order Comment: Speci men Type: BLOOD SPECIMENOrdering Facility: [facility] Address: [address] [address] Performed By: #### 2 4321-2 ####[facility] LABCLIA [id number] [place] [address] [place] Chloride [Moles/Vol] 102 mmol/L Normal 97-105 [facility] Comment on above: Order Comment: Speci men Type: BLOOD SPECIMENOrdering Facility: [facility] Address: [address] [address] Performed By: #### 2 4321-2 ####[facility] LABCLIA [id number] [place] [address] [place] CO2 [Moles/Vol] 22 mmol/L Normal 22-30 [facility] Comment on above: Order Comment: Speci men Type: BLOOD SPECIMENOrdering Facility: [facility] Address: [address] [address] Performed By: #### 2 4321-2 ####[facility] LABCLIA [id number] [place] [address] [place] Creatinine [Mass/Vol] 0.67 mg/dL Low 0.73-1.22 [facility] Comment on above: Order Comment: Speci men Type: BLOOD SPECIMENOrdering Facility: [facility] Address: [address] [address] Performed By: #### 2 4321-2 ####[facility] LABCLIA [id number] [place] [address] [place] ESTIMATED GLOMERULAR FILTRATION RATE 102 mL/min/1.73m??? Normal >=60 [facility] Comment on above: Order Comment: Speci men Type: BLOOD SPECIMENOrdering Facility: [facility] Address: [address] [place] [address] Result Comment: Ignacia mated Glomerular Filtration Rate (eGFR) is calculated using the 2020 CKD-EPI creatinine equation. This equation utilizes serum creatinine, sex, and age as parameters. The creatinine assay has traceable calibration to isotope dilution-mass spectrometry. Refer to KDIGO guidelines for clinical interpretation. In patients with unstable renal function, e.g. those with acute kidney injury, the eGFR may not accurately reflect actual GFR. Performed By: #### 2 4321-2 ####[facility] LABIA [id number] [place] [address] [place] Glucose [Mass/Vol] 128 mg/dL High 74-99 [facility] Comment on above: Order Comment: Cierra cartwright Type: BLOOD SPECIMENOrdering Facility: [facility] Address: [address] [address] Result Comment: The [place] Diabetes Association (ADA) provides guidance for cutoff values for fasting glucose and random glucose. The ADA defines fasting as no caloric intake for at least 8 hours. Fasting plasma glucose results between 100 to 125 mg/dL indicate increased risk for diabetes (prediabetes).Fasting plasma glucose results greater than or equal to 126 mg/dL meet the criteria for diagnosis of diabetes. In the absence of unequivocal hyperglycemia, results should be confirmed by repeat testing. In a patient with classic symptoms of hyperglycemia or hyperglycemic crisis, random plasma glucose results greater than or equal to 200 mg/dL meet the criteria for diagnosis of diabetes.Reference: Standards of Medical Care in Diabetes 2016, [place] Diabetes Association. Diabetes Care. 2016.39(Suppl 1). Performed By: #### 2 4321-2 ####[facility] LABIA [id number] [place] [address] [place] Potassium [Moles/Vol] 3.8 mmol/L Normal 3.7-5.1 [facility] Comment on above: Order Comment: Cierra cartwright Type: BLOOD SPECIMENOrdering Facility: [facility] Address: [address] [phone] Performed By: #### 2 4321-2 ####[facility] LABCLIA [id number] [place] [address] [place] Sodium [Moles/Vol] 135 mmol/L Low 136-144 [facility] Comment on above: Order Comment: Speci men Type: BLOOD SPECIMENOrdering Facility: [facility] Address: [address] [place], [place] [address] Performed By: #### 2 4321-2 ####[facility] LABCLIA [id number] [place] [address] [place] Urea nitrogen [Mass/Vol] 9 mg/dL Normal 9-24 [facility] Comment on above: Order Comment: Speci men Type: BLOOD SPECIMENOrdering Facility: [facility] Address: [address] Performed By: #### 2 4321-2 ####[facility] LABIA [id number] [place] [address] [place] CASE MGT INIT ASSESon 2022 CASE MGT INIT ASSES Normal [facility] CBC panel Auto (Bld)on 08-10 Erythrocyte distribution width (RBC) [Ratio] 13.2 % Normal 11.5-15.0 [facility] Comment on above: Order Comment: Speci men Type: BLOOD SPECIMENOrdering Facility: [facility] Address: [address] [place], [place] [address] Performed By: #### 5 8410-2 ####[facility] LABCLIA [id number] [place] [address] [place] Hematocrit (Bld) [Volume fraction] 28.5 % Low 39.0-51.0 [facility] Comment on above: Order Comment: Speci men Type: BLOOD SPECIMENOrdering Facility: [facility] Address: [address] Performed By: #### 5 8410-2 ####[facility] LABCLIA [id number] [place] [address] [place] Hemoglobin (Bld) [Mass/Vol] 9.7 g/dL Low 13.0-17.0 [facility] Comment on above: Order Comment: Speci men Type: BLOOD SPECIMENOrdering Facility: [facility] Address: [address] [address] Performed By: #### 5 8410-2 ####[facility] LABIA [id number] [address] [place] MCH (RBC) [Entitic mass] 28.9 pg Normal 26.0-34.0 [facility] Comment on above: Order Comment: Speci men Type: BLOOD SPECIMENOrdering Facility: [facility] Address: [address] [address] Performed By: #### 5 8410-2 ####[facility] LABIA [id number] [address] STATES [facility] MCHC (RBC) [Mass/Vol] 34.0 g/dL Normal 30.5-36.0 [facility] Comment on above: Order Comment: Speci men Type: BLOOD SPECIMENOrdering Facility: [facility] Address: [address] [place] [address] Performed By: #### 5 8410-2 ####[facility] LABIA [id number] [address] [place] MCV (RBC) [Entitic vol] 84.8 fL Normal 80.0-100.0 [facility] Comment on above: Order Comment: Speci men Type: BLOOD SPECIMENOrdering Facility: [facility] Address: [address] Performed By: #### 5 8410-2 ####[facility] LABIA [id number] [address] [place] Nucleated RBC (Bld) [#/Vol] 10*3/uL Normal <0.01 [facility] Comment on above: Order Comment: Speci men Type: BLOOD SPECIMENOrdering Facility: [facility] Address: [address] [place], [place] [address] Performed By: #### 5 8410-2 ####[facility] LABCLIA [id number] [place] [address] [place] Platelet mean volume (Bld) [Entitic vol] 9.3 fL Normal 9.0-12.7 [facility] Comment on above: Order Comment: Speci men Type: BLOOD SPECIMENOrdering Facility: [facility] Address: [address] [place], [place] [address] Performed By: #### 5 8410-2 ####[facility] LABCLIA [id number] [place] [address] [place] Platelets (Bld) [#/Vol] 234 10*3/uL Normal 150-400 [facility] Comment on above: Order Comment: Speci men Type: BLOOD SPECIMENOrdering Facility: [facility] Address: [address] [place], [place] [address] Performed By: #### 5 8410-2 ####[facility] LABIA [id number] [place] [address] [place] RBC (Bld) [#/Vol] 3.36 10*6/uL Low 4.20-6.00 [facility] Comment on above: Order Comment: Speci men Type: BLOOD SPECIMENOrdering Facility: [facility] Address: [address] [place] [address] Performed By: #### 5 8410-2 ####[facility] LABCLIA [id number] [place] [address] [place] WBC (Bld) [#/Vol] 5.31 10*3/uL Normal 3.70-11.00 [facility] Comment on above: Order Comment: Speci men Type: BLOOD SPECIMENOrdering Facility: [facility] Address: [address] [place], [place] [address] Performed By: #### 5 8410-2 ####[facility] LABCLIA [id number] [place] [address] [place] CONSULT PROGon 08-10-2022 CONSULT PROG Normal [facility] NURSING PROGon 08-10-2022 NURSING PROG Normal [facility] ANES POSTPROC EVALon 023 ANES POSTPROC EVAL Normal [facility] ANES PRE-OPon 08-09-2022 ANES PRE-OP Normal [facility] BRIEF OP NOTon 08-09-2022 BRIEF OP NOT Normal [facility] Bacteria Ur Culton Bacteria identified Cx Nom (U) Abnormal [facility] Comment on above: Performed By: #### 6 30-4 ####[facility] LABCLIA [id number] [place] [address] [place] Basic metabolic 2000 panelon 08-09-2022 Anion gap [Moles/Vol] 10 mmol/L Normal 9-18 [facility] Comment on above: Order Comment: Speci men Type: BLOOD SPECIMENOrdering Facility: [facility] Address: [address] [address] Performed By: #### 2 4321-2 ####[facility] LABIA [id number] [place] [address] [place] Calcium [Mass/Vol] 8.7 mg/dL Normal 8.5-10.2 [facility] Comment on above: Order Comment: Speci men Type: BLOOD SPECIMENOrdering Facility: [facility] Address: [address] [phone] Performed By: #### 2 4321-2 ####[facility] LABIA [id number] [place] [address] [place] Chloride [Moles/Vol] 108 mmol/L High 97-105 [facility] Comment on above: Order Comment: Speci men Type: BLOOD SPECIMENOrdering Facility: [facility] Address: [address] [place] [address] Performed By: #### 2 4321-2 ####[facility] LABCLIA [id number] [place] [address] [place] CO2 [Moles/Vol] 23 mmol/L Normal 22-30 [facility] Comment on above: Order Comment: Speci men Type: BLOOD SPECIMENOrdering Facility: [facility] Address: [address] [place] [address] Performed By: #### 2 4321-2 ####[facility] LABCLIA [id number] [place] [address] [place] Creatinine [Mass/Vol] 0.72 mg/dL Low 0.73-1.22 [facility] Comment on above: Order Comment: Speci men Type: BLOOD SPECIMENOrdering Facility: [facility] Address: [address] [place] [address] Performed By: #### 2 4321-2 ####[facility] LABCLIA [id number] [address] [place] ESTIMATED GLOMERULAR FILTRATION RATE 100 mL/min/1.73m??? Normal >=60 [facility] Comment on above: Order Comment: Speci men Type: BLOOD SPECIMENOrdering Facility: [facility] Address: [address] [place] [address] Result Comment: Ignacia mated Glomerular Filtration Rate (eGFR) is calculated using the 2020 CKD-EPI creatinine equation. This equation utilizes serum creatinine, sex, and age as parameters. The creatinine assay has traceable calibration to isotope dilution-mass spectrometry. Refer to KDIGO guidelines for clinical interpretation. In patients with unstable renal function, e.g. those with acute kidney injury, the eGFR may not accurately reflect actual GFR. Performed By: #### 2 4321-2 ####[facility] LABCLIA [id number] [place] [address] [place] Glucose [Mass/Vol] 74 mg/dL Normal 74-99 [facility] Comment on above: Order Comment: Speci men Type: BLOOD SPECIMENOrdering Facility: [facility] Address: [address] [place], [place] [phone] Result Comment: The [place] Diabetes Association (ADA) provides guidance for cutoff values for fasting glucose and random glucose. The ADA defines fasting as no caloric intake for at least 8 hours. Fasting plasma glucose results between 100 to 125 mg/dL indicate increased risk for diabetes (prediabetes).Fasting plasma glucose results greater than or equal to 126 mg/dL meet the criteria for diagnosis of diabetes. In the absence of unequivocal hyperglycemia, results should be confirmed by repeat testing. In a patient with classic symptoms of hyperglycemia or hyperglycemic crisis, random plasma glucose results greater than or equal to 200 mg/dL meet the criteria for diagnosis of diabetes.Reference: Standards of Medical Care in Diabetes 2016, [place] Diabetes [employer]. Diabetes Care. 2016.39(Suppl 1). Performed By: #### 2 4321-2 ####[facility] LABCLIA [id number] [place] [address] [place] Potassium [Moles/Vol] 3.8 mmol/L Normal 3.7-5.1 [facility] Comment on above: Order Comment: Speci men Type: BLOOD SPECIMENOrdering Facility: [facility] Address: [address] [place], [place] [address] Performed By: #### 2 4321-2 ####[facility] LABCLIA [id number] [place] [address] [place] Sodium [Moles/Vol] 141 mmol/L Normal 136-144 [facility] Comment on above: Order Comment: Speci men Type: BLOOD SPECIMENOrdering Facility: [facility] Address: [address] [place], [place] [address] Performed By: #### 2 4321-2 ####[facility] LABCLIA [id number] [place] [address] [place] Urea nitrogen [Mass/Vol] 8 mg/dL Low 9-24 [facility] Comment on above: Order Comment: Speci men Type: BLOOD SPECIMENOrdering Facility: [facility] Address: [address] [place] [address] Performed By: #### 2 4321-2 ####[facility] [id number] [address] [place] CALCULI ANALYSISon 3 Calculus analysis [Interp] Normal [facility] Comment on above: Order Comment: Speci men Type: CALCULUS SPECIMENOrdering Facility: [facility] Address: [address] [place] [address] Result Comment: This test was developed and its performance characteristics determined by [facility] Pathology [facility] [place] ([facility]). It has not been cleared or approved by the FDA. -[facility] is regulated under CLIA as qualified to perform high-complexity testing. This test is used for clinical purposes. It should not be regarded as investigational or for research. Performed By: #### C SA ####[facility] LABIA [id number] [address] [place] CALCULUS COLOR BEIGE Normal [facility] Comment on above: Order Comment: Speci men Type: CALCULUS SPECIMENOrdering Facility: [facility] Address: [address] [place] [address] Performed By: #### C SA ####[facility] [id number] [address] [place] CALCULUS COMPOSITION 1 90% Calcium Phosphate Normal [facility] Comment on above: Order Comment: Speci men Type: CALCULUS SPECIMENOrdering Facility: [facility] Address: [address] [place] [address] Performed By: #### C SA ####[facility] [id number] [address] [place] CALCULUS COMPOSITION 2 10% Minor Components Normal [facility] Comment on above: Order Comment: Speci men Type: CALCULUS SPECIMENOrdering Facility: [facility] Address: [address] Performed By: #### C SA ####[facility] LABCLIA [id number] [address] [place] CALCULUS SIZE AND WT Multiple pieces. 1.3581 GRAMS Normal [facility] Comment on above: Order Comment: Speci men Type: CALCULUS SPECIMENOrdering Facility: [facility] Address: [address] [place] [address] Performed By: #### C SA ####[facility] LABIA [id number] [place] [address] [place] CALCULUS TYPE Calculus, CALCULI/CALCULUS Normal [facility] Comment on above: Order Comment: Speci men Type: CALCULUS SPECIMENOrdering Facility: [facility] Address: [address] [place] [address] Performed By: #### C SA ####[facility] LABIA [id number] [address] [place] CBC panel Auto (Bld)on 08-09 Erythrocyte distribution width (RBC) [Ratio] 13.5 % Normal 11.5-15.0 [facility] Comment on above: Order Comment: Speci men Type: BLOOD SPECIMENOrdering Facility: [facility] Address: [address] [place] [address] Performed By: #### 5 8410-2 ####[facility] LABIA [id number] [address] [place] Hematocrit (Bld) [Volume fraction] 31.1 % Low 39.0-51.0 [facility] Comment on above: Order Comment: Speci men Type: BLOOD SPECIMENOrdering Facility: [facility] Address: [address] Performed By: #### 5 8410-2 ####[facility] LABIA [id number] [place] [id number] Hemoglobin (Bld) [Mass/Vol] 9.7 g/dL Low 13.0-17.0 [facility] Comment on above: Order Comment: Speci men Type: BLOOD SPECIMENOrdering Facility: [facility] Address: [address] [place] [address] Performed By: #### 5 8410-2 ####[facility] LABCLIA [id number] [address] MCH (RBC) [Entitic mass] 27.9 pg Normal 26.0-34.0 [facility] Comment on above: Order Comment: Speci men Type: BLOOD SPECIMENOrdering Facility: [facility] Address: [address] [place] [address] Performed By: #### 5 8410-2 ####[facility] LABIA [id number] [address] MCHC (RBC) [Mass/Vol] 31.2 g/dL Normal 30.5-36.0 [facility] Comment on above: Order Comment: Speci men Type: BLOOD SPECIMENOrdering Facility: [facility] Address: [address] [place], [place] [address] Performed By: #### 5 8410-2 ####[facility] LABIA [id number] [address] OF [facility] MCV (RBC) [Entitic vol] 89.4 fL Normal 80.0-100.0 [facility] Comment on above: Order Comment: Speci men Type: BLOOD SPECIMENOrdering Facility: [facility] Address: [address] [place], [place] [address] Performed By: #### 5 8410-2 ####[facility] LABCLIA [id number] [address] [place] Nucleated RBC (Bld) [#/Vol] 10*3/uL Normal <0.01 [facility] Comment on above: Order Comment: Speci men Type: BLOOD SPECIMENOrdering Facility: [facility] Address: [address] Performed By: #### 5 8410-2 ####[facility] LABCLIA [id number] [place] [address] [place] Platelet mean volume (Bld) [Entitic vol] 9.7 fL Normal 9.0-12.7 [facility] Comment on above: Order Comment: Speci men Type: BLOOD SPECIMENOrdering Facility: [facility] Address: [address] Performed By: #### 5 8410-2 ####[facility] LABCLIA [id number] [place] [address] [place] Platelets (Bld) [#/Vol] 258 10*3/uL Normal 150-400 [facility] Comment on above: Order Comment: Speci men Type: BLOOD SPECIMENOrdering Facility: [facility] Address: [address] [place], [place] [address] Performed By: #### 5 8410-2 ####[facility] LABIA [id number] [place] [address] [place] RBC (Bld) [#/Vol] 3.48 10*6/uL Low 4.20-6.00 [facility] Comment on above: Order Comment: Speci men Type: BLOOD SPECIMENOrdering Facility: [facility] Address: [address] [place], [place] [address] Performed By: #### 5 8410-2 ####[facility] LABCLIA [id number] [place] [address] [place] WBC (Bld) [#/Vol] 3.10 10*3/uL Low 3.70-11.00 [facility] Comment on above: Order Comment: Speci men Type: BLOOD SPECIMENOrdering Facility: [facility] Address: [address] [place], [place] [address] Performed By: #### 5 8410-2 ####[facility] LABIA [id number] [place] [id number] [place] CNDSon 08-09-2022 CNDS Normal [facility] CONSULTon 08-09-2022 CONSULT Normal [facility] NURSING PROGon 08-09-2022 NURSING PROG Normal [facility] NURSING PROG Normal [facility] NURSING PROG Normal [facility] OPERATIVE NOon 08-09-2022 OPERATIVE NO Normal [facility] PT panel Coag (PPP)on 2022 INR Coag (PPP) [Relative time] 1.0 {INR} Normal 0.9-1.3 [facility] Comment on above: Order Comment: Speci men Type: BLOOD SPECIMENOrdering Facility: [facility] Address: [address] [place] [address] Result Comment: Kendra min K Antagonist (VKA) Therapeutic Range: INR 2 to 3 (Target INR of 2.5)Note: For patients treated with VKA drugs, such as warfarin, the [employer] 2012 Guideline recommends a therapeutic INR range of 2 to 3 (target INR of 2.5). This recommendation includes high-risk patients with antiphospholipid syndrome with previous arterial or venous thromboembolism, current-generation mechanical or bioprosthetic aortic heart valve replacement.Note: Patients with mechanical aortic valve replacement and additional risk factors for thromboembolic events (atrial fibrillation, previous thromboembolism, LV dysfunction, hypercoagulable conditions) or an older generation mechanical AVR (i.e., ball in-Cage) or any mechanical MVR should have a INR therapeutic range of 2.5 to 3.5 (target INR of 3).Farzaneh GH, et al. Chest 2012, 141:7S-47SNishimura RA, et al. JAC 2017, 70: 252-289 Performed By: #### 1 4979-9, 66328-7 ####[facility] LABCLIA [id number] [place] [address] [place] PT Coag (PPP) [Time] 10.3 s Normal 9.7-13.0 [facility] Comment on above: Order Comment: Speci men Type: BLOOD SPECIMENOrdering Facility: [facility] Address: [address] [place] [address] Performed By: #### 1 4979-9, 54262-6 ####[facility] LABCLIA [id number] [address] [place] TYPE + SCREENon 08-09-2022 ABO O Normal [facility] Comment on above: Order Comment: Speci men Type: BLOOD SPECIMENOrdering Facility: [facility] Address: [address] [place] [address] Performed By: #### T SCR ####CC MAIN BLOOD BANKCLIA [id number] [address] [place] HISTORICAL AB SCR STATUS Negative Normal [facility] Comment on above: Order Comment: Speci men Type: BLOOD SPECIMENOrdering Facility: [facility] Address: [address] [place], [place] [address] Performed By: #### T SCR ####CC MAIN BLOOD BANKCLIA [id number] [place] [address] [place] Rh Nom (Bld) Positive Normal [facility] Comment on above: Order Comment: Speci men Type: BLOOD SPECIMENOrdering Facility: [facility] Address: [address] [place], [place] [address] Performed By: #### T SCR ####CC MAIN BLOOD BANKCLIA [id number] [place] [address] [place] TYPE AND SCREEN EXPIRATION 08/12/2022 23:59 Normal [facility] Comment on above: Order Comment: Speci men Type: BLOOD SPECIMENOrdering Facility: [facility] Address: [address] [place], [place] [address] Performed By: #### T SCR ####CC MAIN BLOOD BANKCLIA [id number] [address] [place] aPTT PPPon 08-09-2022 aPTT Coag (PPP) [Time] 28.2 s Normal 23.0-32.4 [facility] Comment on above: Order Comment: Speci men Type: BLOOD SPECIMENOrdering Facility: [facility] Address: [address] [place] [address] Performed By: #### 1 4979-9, 95147-0 ####[facility] LABCLIA [id number] [place] [address] [place] Basic metabolic 2000 panelon 08-08-2022 Anion gap [Moles/Vol] 9 mmol/L Normal 9-18 [facility] Comment on above: Order Comment: Speci men Type: BLOOD SPECIMENOrdering Facility: [facility] Address: [address] [place] [address] Performed By: #### 2 4321-2 ####[facility] LABCLIA [id number] [place] [address] [place] Calcium [Mass/Vol] 7.3 mg/dL Low 8.5-10.2 [facility] Comment on above: Order Comment: Speci men Type: BLOOD SPECIMENOrdering Facility: [facility] Address: [address] [place] [address] Performed By: #### 2 4321-2 ####[facility] LABCLIA [id number] [place] [address] [place] Chloride [Moles/Vol] 115 mmol/L High 97-105 [facility] Comment on above: Order Comment: Speci men Type: BLOOD SPECIMENOrdering Facility: [facility] Address: [address] [place], [place] [address] Performed By: #### 2 4321-2 ####[facility] LABCLIA [id number] [place] [address] [place] CO2 [Moles/Vol] 19 mmol/L Low 22-30 [facility] Comment on above: Order Comment: Speci men Type: BLOOD SPECIMENOrdering Facility: [facility] Address: [address] [address] Performed By: #### 2 4321-2 ####[facility] LABIA [id number] [place] [address] [place] Creatinine [Mass/Vol] 0.54 mg/dL Low 0.73-1.22 [facility] Comment on above: Order Comment: Speci men Type: BLOOD SPECIMENOrdering Facility: [facility] Address: [address] [address] Performed By: #### 2 4321-2 ####[facility] LABIA [id number] [address] [place] ESTIMATED GLOMERULAR FILTRATION RATE 109 mL/min/1.73m??? Normal >=60 [facility] Comment on above: Order Comment: Speci men Type: BLOOD SPECIMENOrdering Facility: [facility] Address: [address] [place] [address] Result Comment: Ignacia mated Glomerular Filtration Rate (eGFR) is calculated using the 2020 CKD-EPI creatinine equation. This equation utilizes serum creatinine, sex, and age as parameters. The creatinine assay has traceable calibration to isotope dilution-mass spectrometry. Refer to KDIGO guidelines for clinical interpretation. In patients with unstable renal function, e.g. those with acute kidney injury, the eGFR may not accurately reflect actual GFR. Performed By: #### 2 4321-2 ####[facility] LABIA [id number] [place] [address] [place] Glucose [Mass/Vol] 74 mg/dL Normal 74-99 [facility] Comment on above: Order Comment: Speci men Type: BLOOD SPECIMENOrdering Facility: [facility] Address: [address] [address] Result Comment: The [place] Diabetes Association (ADA) provides guidance for cutoff values for fasting glucose and random glucose. The ADA defines fasting as no caloric intake for at least 8 hours. Fasting plasma glucose results between 100 to 125 mg/dL indicate increased risk for diabetes (prediabetes).Fasting plasma glucose results greater than or equal to 126 mg/dL meet the criteria for diagnosis of diabetes. In the absence of unequivocal hyperglycemia, results should be confirmed by repeat testing. In a patient with classic symptoms of hyperglycemia or hyperglycemic crisis, random plasma glucose results greater than or equal to 200 mg/dL meet the criteria for diagnosis of diabetes.Reference: Standards of Medical Care in Diabetes 2016, [place] Diabetes Association. Diabetes Care. 2016.39(Suppl 1). Performed By: #### 2 4321-2 ####[facility] LABCLIA [id number] [place] [address] [place] Potassium [Moles/Vol] 3.3 mmol/L Low 3.7-5.1 [facility] Comment on above: Order Comment: Speci men Type: BLOOD SPECIMENOrdering Facility: [facility] Address: [address] [place] [address] Performed By: #### 2 1-2 ####[facility] LABIA [id number] [place] [address] [place] Sodium [Moles/Vol] 143 mmol/L Normal 136-144 [facility] Comment on above: Order Comment: Cierra cartwright Type: BLOOD SPECIMENOrdering Facility: [facility] Address: [address] [place] [address] Performed By: #### 2 1-2 ####[facility] LABCLIA [id number] [place] [address] [place] Urea nitrogen [Mass/Vol] 7 mg/dL Low 9-24 [facility] Comment on above: Order Comment: Guadalu[place] men Type: BLOOD SPECIMENOrdering Facility: [facility] Address: [address] [address] Performed By: #### 2 4321-2 ####[facility] LABCLIA [id number] [place] [address] [place] CBC panel Auto (Bld)on 08-08 Erythrocyte distribution width (RBC) [Ratio] 13.5 % Normal 11.5-15.0 [facility] Comment on above: Order Comment: Speci men Type: BLOOD SPECIMENOrdering Facility: [facility] Address: [address] [place] [address] Performed By: #### 5 8410-2 ####[facility] LABIA [id number] [address] [place] [facility] Hematocrit (Bld) [Volume fraction] 31.7 % Low 39.0-51.0 [facility] Comment on above: Order Comment: Speci men Type: BLOOD SPECIMENOrdering Facility: [facility] Address: [address] [place] [address] Performed By: #### 5 8410-2 ####[facility] LABIA [id number] [address] [place] Hemoglobin (Bld) [Mass/Vol] 9.9 g/dL Low 13.0-17.0 [facility] Comment on above: Order Comment: Speci men Type: BLOOD SPECIMENOrdering Facility: [facility] Address: [address] [place] [address] Performed By: #### 5 8410-2 ####[facility] LABIA [id number] [place] [address] [place] MCH (RBC) [Entitic mass] 27.9 pg Normal 26.0-34.0 [facility] Comment on above: Order Comment: Speci men Type: BLOOD SPECIMENOrdering Facility: [facility] Address: [address] [place] [address] Performed By: #### 5 8410-2 ####[facility] LABIA [id number] [place] [address] [place] MCHC (RBC) [Mass/Vol] 31.2 g/dL Normal 30.5-36.0 [facility] Comment on above: Order Comment: Speci men Type: BLOOD SPECIMENOrdering Facility: [facility] Address: [address] Performed By: #### 5 8410-2 ####[facility] LABIA [id number] [address] [place] MCV (RBC) [Entitic vol] 89.3 fL Normal 80.0-100.0 [facility] Comment on above: Order Comment: Speci men Type: BLOOD SPECIMENOrdering Facility: [facility] Address: [address] Performed By: #### 5 8410-2 ####[facility] [id number] [address] [place] Nucleated RBC (Bld) [#/Vol] 10*3/uL Normal <0.01 [facility] Comment on above: Order Comment: Speci men Type: BLOOD SPECIMENOrdering Facility: [facility] Address: [address] Performed By: #### 5 8410-2 ####[facility] [id number] [address] [place] Platelet mean volume (Bld) [Entitic vol] 9.5 fL Normal 9.0-12.7 [facility] Comment on above: Order Comment: Speci men Type: BLOOD SPECIMENOrdering Facility: [facility] Address: [address] [place] [address] Performed By: #### 5 8410-2 ####[facility] LABIA [id number] [place] [address] [place] Platelets (Bld) [#/Vol] 268 10*3/uL Normal 150-400 [facility] Comment on above: Order Comment: Speci men Type: BLOOD SPECIMENOrdering Facility: [facility] Address: [address] [place], [place] [address] Performed By: #### 5 8410-2 ####[facility] LABIA [id number] [place] [address] [place] RBC (Bld) [#/Vol] 3.55 10*6/uL Low 4.20-6.00 [facility] Comment on above: Order Comment: Speci men Type: BLOOD SPECIMENOrdering Facility: [facility] Address: [address] [place], [place] [address] Performed By: #### 5 8410-2 ####[facility] [id number] [place] [address] [place] WBC (Bld) [#/Vol] 2.90 10*3/uL Low 3.70-11.00 [facility] Comment on above: Order Comment: Speci men Type: BLOOD SPECIMENOrdering Facility: [facility] Address: [address] [place], [place] [address] Performed By: #### 5 8410-2 ####[facility] [id number] [place] [address] [place] NURSING PROGon 08-08-2022 NURSING PROG Normal [facility] CBC W Auto Differential pane l (Bld)on 08-07-2022 Basophils (Bld) [#/Vol] 0.07 10*3/uL Normal <0.11 [facility] Comment on above: Order Comment: Speci men Type: BLOOD SPECIMENOrdering Facility: [facility] Address: [address] [place], [place] [address] Performed By: #### 5 7021-8 ####[facility] [id number] [address] [place] Basophils/100 WBC (Bld) 1.4 % Normal [facility] Comment on above: Order Comment: Speci men Type: BLOOD SPECIMENOrdering Facility: [facility] Address: [address] [place], [place] [address] Performed By: #### 5 7021-8 ####[facility] LABCLIA [id number] [place] [address] [place] Differential cell count method Nom (Bld) Auto Normal [facility] Comment on above: Order Comment: Speci men Type: BLOOD SPECIMENOrdering Facility: [facility] Address: [address] [place], [place] [address] Performed By: #### 5 7021-8 ####[facility] LABCLIA [id number] [place] [address] [place] Eosinophils (Bld) [#/Vol] 0.15 10*3/uL Normal <0.46 [facility] Comment on above: Order Comment: Speci men Type: BLOOD SPECIMENOrdering Facility: [facility] Address: [address] [place], [place] [address] Performed By: #### 5 7021-8 ####[facility] LABIA [id number] [address] [place] [facility] Eosinophils/100 WBC (Bld) 3.1 % Normal [facility] Comment on above: Order Comment: Speci men Type: BLOOD SPECIMENOrdering Facility: [facility] Address: [address] [place] [id number] Performed By: #### 5 7021-8 ####[facility] LABIA [id number] [place] [address] [place] Erythrocyte distribution width (RBC) [Ratio] 13.9 % Normal 11.5-15.0 [facility] Comment on above: Order Comment: Speci men Type: BLOOD SPECIMENOrdering Facility: [facility] Address: [address] [place] [address] Performed By: #### 5 7021-8 ####[facility] LABCLIA [id number] [place] [address] [place] Hematocrit (Bld) [Volume fraction] 34.2 % Low 39.0-51.0 [facility] Comment on above: Order Comment: Speci men Type: BLOOD SPECIMENOrdering Facility: [facility] Address: [address] [place], [place] [address] Performed By: #### 5 7021-8 ####[facility] LABCLIA [id number] [place] [address] [place] Hemoglobin (Bld) [Mass/Vol] 10.6 g/dL Low 13.0-17.0 [facility] Comment on above: Order Comment: Speci men Type: BLOOD SPECIMENOrdering Facility: [facility] Address: [address] [place], [place] [address] Performed By: #### 5 7021-8 ####[facility] LABCLIA [id number] [place] [address] [place] Immature granulocytes (Bld) [#/Vol] 0.03 10*3/uL Normal <0.10 [facility] Comment on above: Order Comment: Speci men Type: BLOOD SPECIMENOrdering Facility: [facility] Address: [address] [place], [place] [address] Performed By: #### 5 7021-8 ####[facility] LABIA [id number] [place] [address] [place] Immature granulocytes/100 WBC (Bld) 0.6 % Normal [facility] Comment on above: Order Comment: Speci men Type: BLOOD SPECIMENOrdering Facility: [facility] Address: [address] [place], [place] [address] Performed By: #### 5 7021-8 ####[facility] LABIA [id number] [place] [address] [place] Lymphocytes (Bld) [#/Vol] 1.73 10*3/uL Normal 1.00-4.00 [facility] Comment on above: Order Comment: Speci men Type: BLOOD SPECIMENOrdering Facility: [facility] Address: [address] [place], [place] [address] Performed By: #### 5 7021-8 ####[facility] LABIA [id number] [address] [place] [facility] Lymphocytes/100 WBC (Bld) 35.4 % Normal [facility] Comment on above: Order Comment: Speci men Type: BLOOD SPECIMENOrdering Facility: [facility] Address: [address] [place], [place] [address] Performed By: #### 5 7021-8 ####[facility] [id number] [place] [address] [place] MCH (RBC) [Entitic mass] 28.2 pg Normal 26.0-34.0 [facility] Comment on above: Order Comment: Speci men Type: BLOOD SPECIMENOrdering Facility: [facility] Address: [address] [place], [place] [address] Performed By: #### 5 7021-8 ####[facility] [id number] [place] [address] [place] MCHC (RBC) [Mass/Vol] 31.0 g/dL Normal 30.5-36.0 [facility] Comment on above: Order Comment: Speci men Type: BLOOD SPECIMENOrdering Facility: [facility] Address: [address] [place], [place] [address] Performed By: #### 5 7021-8 ####[facility] LABIA [id number] [address] [place] MCV (RBC) [Entitic vol] 91.0 fL Normal 80.0-100.0 [facility] Comment on above: Order Comment: Speci men Type: BLOOD SPECIMENOrdering Facility: [facility] Address: [address] [place], [place] [address] Performed By: #### 5 7021-8 ####[facility] LABIA [id number] [place] [address] [place] Monocytes (Bld) [#/Vol] 0.57 10*3/uL Normal <0.87 [facility] Comment on above: Order Comment: Speci men Type: BLOOD SPECIMENOrdering Facility: [facility] Address: [address] [address] Performed By: #### 5 7021-8 ####[facility] LABCLIA [id number] [place] [address] [place] Monocytes/100 WBC (Bld) 11.7 % Normal [facility] Comment on above: Order Comment: Speci men Type: BLOOD SPECIMENOrdering Facility: [facility] Address: [address] [address] Performed By: #### 5 7021-8 ####[facility] LABCLIA [id number] [place] [address] [place] Neutrophils (Bld) [#/Vol] 2.34 10*3/uL Normal 1.45-7.50 [facility] Comment on above: Order Comment: Speci men Type: BLOOD SPECIMENOrdering Facility: [facility] Address: [address] Performed By: #### 5 7021-8 ####[facility] LABCLIA [id number] [place] [address] [place] Neutrophils/100 WBC (Bld) 47.8 % Normal [facility] Comment on above: Order Comment: Speci men Type: BLOOD SPECIMENOrdering Facility: [facility] Address: [address] [place], [place] [address] Performed By: #### 5 7021-8 ####[facility] LABCLIA [id number] [place] [address] [place] Nucleated RBC (Bld) [#/Vol] 10*3/uL Normal <0.01 [facility] Comment on above: Order Comment: Speci men Type: BLOOD SPECIMENOrdering Facility: [facility] Address: [address] Performed By: #### 5 7021-8 ####[facility] LABIA [id number] [place] [address] [place] Nucleated RBC/100 WBC (Bld) [Ratio] 0.0 /100 WBC Normal [facility] Comment on above: Order Comment: Speci men Type: BLOOD SPECIMENOrdering Facility: [facility] Address: [address] Performed By: #### 5 7021-8 ####[facility] LABIA [id number] [place] [address] [place] Platelet mean volume (Bld) [Entitic vol] 9.1 fL Normal 9.0-12.7 [facility] Comment on above: Order Comment: Speci men Type: BLOOD SPECIMENOrdering Facility: [facility] Address: [address] Performed By: #### 5 7021-8 ####[facility] LABIA [id number] [place] [address] [place] Platelets (Bld) [#/Vol] 280 10*3/uL Normal 150-400 [facility] Comment on above: Order Comment: Speci men Type: BLOOD SPECIMENOrdering Facility: [facility] Address: [address] [place] [address] Performed By: #### 5 7021-8 ####[facility] LABIA [id number] [place] [address] [place] RBC (Bld) [#/Vol] 3.76 10*6/uL Low 4.20-6.00 [facility] Comment on above: Order Comment: Speci men Type: BLOOD SPECIMENOrdering Facility: [facility] Address: [address] [place], [place] [address] Performed By: #### 5 7021-8 ####[facility] LABCLIA [id number] [place] [address] [place] WBC (Bld) [#/Vol] 4.89 10*3/uL Normal 3.70-11.00 [facility] Comment on above: Order Comment: Speci men Type: BLOOD SPECIMENOrdering Facility: [facility] Address: [address] [place], [place] [address] Performed By: #### 5 7021-8 ####[facility] LABCLIA [id number] [place] [address] [place] CONSULTon 08-07-2022 CONSULT Normal [facility] Comprehensive metabolic 2000 panelon 08-07-2022 Albumin [Mass/Vol] 3.2 g/dL Low 3.9-4.9 [facility] Comment on above: Order Comment: Speci men Type: BLOOD SPECIMENOrdering Facility: [facility] Address: [address] [place], [place] [address] Performed By: #### 2 4323-8 ####[facility] LABCLIA [id number] [place] [address] [place] ALP [Catalytic activity/Vol] 94 U/L Normal 38-113 [facility] Comment on above: Order Comment: Speci men Type: BLOOD SPECIMENOrdering Facility: [facility] Address: [address] [place], [place] [address] Performed By: #### 2 4323-8 ####[facility] LABCLIA [id number] [place] [address] [place] ALT [Catalytic activity/Vol] 12 U/L Normal 10-54 [facility] Comment on above: Order Comment: Speci men Type: BLOOD SPECIMENOrdering Facility: [facility] Address: [address] [place], [place] [address] Performed By: #### 2 4323-8 ####[facility] LABCLIA [id number] [place] [address] [place] Anion gap [Moles/Vol] 10 mmol/L Normal 9-18 [facility] Comment on above: Order Comment: Speci men Type: BLOOD SPECIMENOrdering Facility: [facility] Address: [address] [place] [address] Performed By: #### 2 4323-8 ####[facility] LABCLIA [id number] [place] [address] [place] AST [Catalytic activity/Vol] 15 U/L Normal 14-40 [facility] Comment on above: Order Comment: Speci men Type: BLOOD SPECIMENOrdering Facility: [facility] Address: [address] [place] [address] Performed By: #### 2 4323-8 ####[facility] LABCLIA [id number] [place] [address] [place] Bilirubin [Mass/Vol] 0.2 mg/dL Normal 0.2-1.3 [facility] Comment on above: Order Comment: Speci men Type: BLOOD SPECIMENOrdering Facility: [facility] Address: [address] [place], [place] [address] Performed By: #### 2 4323-8 ####[facility] LABCLIA [id number] [place] [address] [place] Calcium [Mass/Vol] 9.1 mg/dL Normal 8.5-10.2 [facility] Comment on above: Order Comment: Speci men Type: BLOOD SPECIMENOrdering Facility: [facility] Address: [address] [place], [place] [address] Performed By: #### 2 4323-8 ####[facility] LABCLIA [id number] [place] [address] [place] Chloride [Moles/Vol] 106 mmol/L High 97-105 [facility] Comment on above: Order Comment: Speci men Type: BLOOD SPECIMENOrdering Facility: [facility] Address: [address] [address] Performed By: #### 2 4323-8 ####[facility] LABIA [id number] [place] [address] [place] CO2 [Moles/Vol] 24 mmol/L Normal 22-30 [facility] Comment on above: Order Comment: Speci men Type: BLOOD SPECIMENOrdering Facility: [facility] Address: [address] [address] Performed By: #### 2 4323-8 ####[facility] LABIA [id number] [place] [address] [place] Creatinine [Mass/Vol] 0.81 mg/dL Normal 0.73-1.22 [facility] Comment on above: Order Comment: Speci men Type: BLOOD SPECIMENOrdering Facility: [facility] Address: [address] [place] [address] Performed By: #### 2 4323-8 ####[facility] LABIA [id number] [place] [address] [place] ESTIMATED GLOMERULAR FILTRATION RATE 97 mL/min/1.73m??? Normal >=60 [facility] Comment on above: Order Comment: Speci men Type: BLOOD SPECIMENOrdering Facility: [facility] Address: [address] [place] [address] Result Comment: Ignacia mated Glomerular Filtration Rate (eGFR) is calculated using the 2020 CKD-EPI creatinine equation. This equation utilizes serum creatinine, sex, and age as parameters. The creatinine assay has traceable calibration to isotope dilution-mass spectrometry. Refer to KDIGO guidelines for clinical interpretation. In patients with unstable renal function, e.g. those with acute kidney injury, the eGFR may not accurately reflect actual GFR. Performed By: #### 2 4323-8 ####[facility] LABCLIA [id number] [place] [address] [place] Glucose [Mass/Vol] 100 mg/dL High 74-99 [facility] Comment on above: Order Comment: Speci men Type: BLOOD SPECIMENOrdering Facility: [facility] Address: [address] [place] [address] Result Comment: The [place] Diabetes Association (ADA) provides guidance for cutoff values for fasting glucose and random glucose. The ADA defines fasting as no caloric intake for at least 8 hours. Fasting plasma glucose results between 100 to 125 mg/dL indicate increased risk for diabetes (prediabetes).Fasting plasma glucose results greater than or equal to 126 mg/dL meet the criteria for diagnosis of diabetes. In the absence of unequivocal hyperglycemia, results should be confirmed by repeat testing. In a patient with classic symptoms of hyperglycemia or hyperglycemic crisis, random plasma glucose results greater than or equal to 200 mg/dL meet the criteria for diagnosis of diabetes.Reference: Standards of Medical Care in Diabetes 2016, [place] Diabetes Association. Diabetes Care. 2016.39(Suppl 1). Performed By: #### 2 4323-8 ####[facility] LABCLIA [id number] [place] [address] [place] Potassium [Moles/Vol] 3.7 mmol/L Normal 3.7-5.1 [facility] Comment on above: Order Comment: Guadalupei men Type: BLOOD SPECIMENOrdering Facility: [facility] Address: [address] [place] [address] Performed By: #### 2 4323-8 ####[facility] LABCLIA [id number] [place] [address] [place] Protein [Mass/Vol] 7.0 g/dL Normal 6.3-8.0 [facility] Comment on above: Order Comment: Speci men Type: BLOOD SPECIMENOrdering Facility: [facility] Address: [address] [place] [address] Performed By: #### 2 4323-8 ####[facility] LABCLIA [id number] [place] [address] [place] Sodium [Moles/Vol] 140 mmol/L Normal 136-144 [facility] Comment on above: Order Comment: Cierra gabbie Type: BLOOD SPECIMENOrdering Facility: [facility] Address: [address] [address] Performed By: #### 2 4323-8 ####[facility] LABIA [id number] [address] [place] Urea nitrogen [Mass/Vol] 12 mg/dL Normal 9-24 [facility] Comment on above: Order Comment: Cierra gabbie Type: BLOOD SPECIMENOrdering Facility: [facility] Address: [address] [address] Performed By: #### 2 4323-8 ####[facility] [id number] [address] [place] ED PROV NOTEon 08-07-2022 ED PROV NOTE Normal [facility] HISTORY PHYSICALon HISTORY PHYSICAL Normal [facility] PT panel Coag (PPP)on 2022 INR Coag (PPP) [Relative time] 0.9 {INR} Normal 0.9-1.3 [facility] Comment on above: Order Comment: Cierra gabbie Type: BLOOD SPECIMENOrdering Facility: [facility] Address: [address] [address] Result Comment: Kendra min K Antagonist (VKA) Therapeutic Range: INR 2 to 3 (Target INR of 2.5)Note: For patients treated with VKA drugs, such as warfarin, the [employer] 2012 Guideline recommends a therapeutic INR range of 2 to 3 (target INR of 2.5). This recommendation includes high-risk patients with antiphospholipid syndrome with previous arterial or venous thromboembolism, current-generation mechanical or bioprosthetic aortic heart valve replacement.Note: Patients with mechanical aortic valve replacement and additional risk factors for thromboembolic events (atrial fibrillation, previous thromboembolism, LV dysfunction, hypercoagulable conditions) or an older generation mechanical AVR (i.e., ball in-Cage) or any mechanical MVR should have a INR therapeutic range of 2.5 to 3.5 (target INR of 3).Guyatt GH, et al. Chest 2012, 141:7S-47SNishimura RA, et al. [facility] 2017, 70: 252-289 Performed By: #### 3 4528-0 ####[facility] LABCLIA [id number] [place] [address] [place] PT Coag (PPP) [Time] 9.8 s Normal 9.7-13.0 [facility] Comment on above: Order Comment: Speci men Type: BLOOD SPECIMENOrdering Facility: [facility] Address: [address] [place] [address] Performed By: #### 3 4528-0 ####[facility] LABCLIA [id number] [address] TYPE + SCREENon 08-07-2022 ABO O Normal [facility] Comment on above: Order Comment: Speci men Type: BLOOD SPECIMENOrdering Facility: [facility] Address: [address] [place] [address] Performed By: #### T SCR ####[facility] BLOOD BANKIA [id number] [address] HISTORICAL AB SCR STATUS Negative Normal [facility] Comment on above: Order Comment: Speci men Type: BLOOD SPECIMENOrdering Facility: [facility] Address: [address] [place] [address] Performed By: #### T SCR ####[facility] BLOOD BANKCLIA [id number] [address] [place] Rh Nom (Bld) Positive Normal [facility] Comment on above: Order Comment: Speci men Type: BLOOD SPECIMENOrdering Facility: [facility] Address: [address] [place] [address] Performed By: #### T SCR ####[facility] BLOOD BANKCLIA [id number] [address] OF [facility] TYPE AND SCREEN EXPIRATION 08/09/2022 23:59 Normal [facility] Comment on above: Order Comment: Speci men Type: BLOOD SPECIMENOrdering Facility: [facility] Address: [address] [address] Performed By: #### T SCR ####[facility] BLOOD BANKIA [id number] [place] [address] [place] Urinalysis complete panel (U )on 08-07-2022 Bacteria LM.HPF (Urine sed) [#/Area] Rare Abnormal None Seen [facility] Comment on above: Order Comment: Speci men Type: URINE SPECIMENOrdering Facility: [facility] Address: [address] [place] [address] Performed By: #### 2 4356-8 ####[facility] LABCLIA [id number] [place] [address] [place] Bilirubin Ql (U) Negative Normal Negative [facility] Comment on above: Order Comment: Speci men Type: URINE SPECIMENOrdering Facility: [facility] Address: [address] [address] Performed By: #### 2 4356-8 ####[facility] LABCLIA [id number] [place] [address] [place] Clarity (Unsp spec) Cloudy Abnormal Clear [facility] Comment on above: Order Comment: Speci men Type: URINE SPECIMENOrdering Facility: [facility] Address: [address] [address] Performed By: #### 2 4356-8 ####[facility] LABCLIA [id number] [address] STATES OF [facility] Color (U) Light Yellow Normal Yellow [facility] Comment on above: Order Comment: Speci men Type: URINE SPECIMENOrdering Facility: [facility] Address: [address] [address] Performed By: #### 2 4356-8 ####[facility] LABCLIA [id number] [place] [address] [place] Epithelial cells LM.HPF (Urine sed) [#/Area] Few Normal [facility] Comment on above: Order Comment: Speci men Type: URINE SPECIMENOrdering Facility: [facility] Address: [address] [place] [address] Performed By: #### 2 4356-8 ####[facility] LABCLIA [id number] [place] [address] [place] Glucose Test strip (U) [Mass/Vol] Negative Normal Trace, Negative [facility] Comment on above: Order Comment: Speci men Type: URINE SPECIMENOrdering Facility: [facility] Address: [address] [place] [address] Performed By: #### 2 4356-8 ####[facility] LABIA [id number] [place] [address] [place] Hemoglobin Ql (U) 3+ Abnormal Negative, Trace [facility] Comment on above: Order Comment: Speci men Type: URINE SPECIMENOrdering Facility: [facility] Address: [address] [place] [address] Performed By: #### 2 4356-8 ####[facility] LABIA [id number] [place] [address] [place] Ketones Ql (U) Negative Normal Trace, Negative [facility] Comment on above: Order Comment: Speci men Type: URINE SPECIMENOrdering Facility: [facility] Address: [address] [place] [address] Performed By: #### 2 4356-8 ####[facility] LABIA [id number] [place] [address] [place] Leukocyte esterase Test strip Ql (U) 75 Arnulfo/uL Abnormal Negative, 25 Arnulfo/uL [facility] Comment on above: Order Comment: Speci men Type: URINE SPECIMENOrdering Facility: [facility] Address: [address] Performed By: #### 2 4356-8 ####[facility] LABIA [id number] [place] [address] [place] Nitrite Ql (U) Negative Normal Negative [facility] Comment on above: Order Comment: Speci men Type: URINE SPECIMENOrdering Facility: [facility] Address: [address] [place] [address] Performed By: #### 2 4356-8 ####[facility] LABIA [id number] [place] [address] [place] pH (U) 7.0 [pH] Normal 5.0-8.0 [facility] Comment on above: Order Comment: Speci men Type: URINE SPECIMENOrdering Facility: [facility] Address: [address] [place] [address] Performed By: #### 2 4356-8 ####[facility] LABIA [id number] [place] [address] [place] Protein (U) [Mass/Vol] 1+ Abnormal Trace , Negative [facility] Comment on above: Order Comment: Speci men Type: URINE SPECIMENOrdering Facility: [facility] Address: [address] [place] [address] Performed By: #### 2 4356-8 ####[facility] LABIA [id number] [place] [address] [place] RBC LM.HPF (Urine sed) [#/Area] /[HPF] Abnormal 0-3 /HPF [facility] Comment on above: Order Comment: Speci men Type: URINE SPECIMENOrdering Facility: [facility] Address: [address] [place], [place] [address] Performed By: #### 2 4356-8 ####[facility] LABIA [id number] [place] [address] [place] Specific gravity (U) [Rel density] 1.015 Normal 1.005-1.030 [facility] Comment on above: Order Comment: Speci men Type: URINE SPECIMENOrdering Facility: [facility] Address: [address] [place] [address] Performed By: #### 2 4356-8 ####[facility] LABIA [id number] [place] [address] [place] Urobilinogen Ql (U) Negative Normal Negative [facility] Comment on above: Order Comment: Speci men Type: URINE SPECIMENOrdering Facility: [facility] Address: [address] [place] [address] Performed By: #### 2 4356-8 ####[facility] LABIA [id number] [place] [address] [place] WBC LM.HPF (Urine sed) [#/Area] 6-10 /HPF Abnormal 0-5 /HPF [facility] Comment on above: Order Comment: Speci men Type: URINE SPECIMENOrdering Facility: [facility] Address: [address] [place] [address] Performed By: #### 2 4356-8 ####[facility] LABIA [id number] [place] [address] [place] [facility] 08-06-2022 CNPN Normal [facility] ED NOTEon 08-06-2022 ED NOTE HNO ID: [id number] Author: Marielena Moss RN Service: ? Author Type: Registered Nurse Type: ED Notes Filed: 08/06/2022 9:59 PM Note Text: Bed: E1208 Expected date: 08/06/22 Expected time: 9:54 PM Means of arrival: [facility] Normal [facility] BILIRUBIN TOTAL BLDon 2022 Bilirubin [Mass/Vol] 0.2 mg/dL 0.2 - 1 [facility] CBC W Auto Differential pane l (Bld)on 08-02-2022 Hematocrit (Bld) [Volume fraction] 34.1 % Abnormal 42 - 54 % [facility] Hemoglobin (Bld) [Mass/Vol] 10.7 g/dL Abnormal 14 - 18 g/dL [facility] Platelets (Bld) [#/Vol] 379 10*3/uL 150 - 450 K/uL [facility] WBC (Bld) [#/Vol] 4.9 10*3/uL 4.0 - 11.0 K/uL [facility] CNPNon 08-02-2022 CNPN Normal [facility] CREATININEon 08-02-2022 Creatinine [Mass/Vol] 0.92 mg/dL Normal 0.70-1.30 [facility] Comment on above: Performed By: #### R SPLUS #### [facility] [address] [address] [address] Cuba Weber EGFR-AF ITALIAN >60 Normal >=60 [facility] Comment on above: Performed By: #### R SPLUS #### [facility] [address] [address] [address] Cuba Weber EGFR-NON AF ITALIAN >60 Normal >=60 [facility] Comment on above: Performed By: #### R SPLUS #### [facility] [address] [address] [address] Cuba Weber Comprehensive metabolic 2000 panelon 08-02-2022 ALP [Catalytic activity/Vol] 73 U/L 46 - 116 [facility] ALT [Catalytic activity/Vol] 19 U/L 16 - 63 [facility] AST [Catalytic activity/Vol] 21 U/L 15 - 37 [facility] Creatinine [Mass/Vol] 0.92 mg/dL 0.7 - 1.3 MG/DL [facility] HEMOGRAM AND PLATELon 2022 Hematocrit (Bld) [Volume fraction] 34.1 % Critically low 42.0-54.0 [facility] Comment on above: Performed By: #### H H ####[facility] [address] [address]Dr[address] Cuba Weber Hemoglobin (Bld) [Mass/Vol] 10.7 g/dL Critically low 14.0-18.0 [facility] Comment on above: Performed By: #### H H ####[facility] [address] [address]Dr[address] Cuba Weber MCH (RBC) [Entitic mass] 28.3 pg Normal 25.9-34.0 [facility] Comment on above: Performed By: #### H H ####[facility] [address] [address]DrGlory Weber MCHC (RBC) [Mass/Vol] 31.4 g/dL Normal 29.9-35.2 [facility] Comment on above: Performed By: #### H H ####[facility] [address] [address]Dr[address] Cuba Weber MCV (RBC) [Entitic vol] 90.2 fL Normal 80.0-94.0 [facility] Comment on above: Performed By: #### H H ####[facility] [address] [address]Dr[address] Cuba Weber PLT 379 103/ul Normal 150-450 [facility] Comment on above: Performed By: #### H H ####[facility] [address] [address]Dr[address] Cuba Weber RBC 3.78 106/ul Critically low 4.70-6.10 [facility] Comment on above: Performed By: #### H H ####[facility] [address] [id number][address] Cuba Weber WBC 4.9 103/ul Normal 4.0-11.0 [facility] Comment on above: Performed By: #### H H ####[facility] [address] [id number][address] Cuba Weber LIVER PROFILEon 08-02-2022 Albumin [Mass/Vol] 2.6 g/dL Critically low 3.4-5.0 [facility] Comment on above: Performed By: #### R SPLUS #### [facility] [address] [address] [address] Cuba Weber Albumin/Globulin [Mass ratio] 0.6 {ratio} Normal [facility] Comment on above: Performed By: #### R SPLUS #### [facility] [address] [address] [address] Cuba Weber ALP [Catalytic activity/Vol] 73 U/L Normal 46-116 [facility] Comment on above: Performed By: #### R SPLUS #### [facility] [address] [address] [address] Cuba Weber ALT [Catalytic activity/Vol] 19 U/L Normal 16-63 [facility] Comment on above: Performed By: #### R SPLUS #### [facility] [address] [place] [address] Dr. Cuba Weber AST [Catalytic activity/Vol] 21 U/L Normal 15-37 [facility] Comment on above: Performed By: #### R SPLUS #### [facility] [address] [address] [address] Cuba Weber BILI, CONJUGATED 0.1 mg/dL Normal 0.0-0.2 [facility] Comment on above: Performed By: #### R SPLUS #### [facility] [address] [place] [address] Dr. Cuba Weber Bilirubin [Mass/Vol] 0.2 mg/dL Normal 0.2-1.0 [facility] Comment on above: Performed By: #### R SPLUS #### [facility] [address] [place] [address] Dr. Cuba Weber Globulin (S) [Mass/Vol] 4.6 g/dL Normal T [facility] Comment on above: Performed By: #### R SPLUS #### [facility] [address] [address] [address] Cuba Weber Protein [Mass/Vol] 7.2 g/dL Normal 6.4-8.2 [facility] Comment on above: Performed By: #### R SPLUS #### [facility] [address] [place] [address] Dr. Cuba Weber CASE MANAGEMon 07-27-2022 CASE MANAGEM Normal [facility] CASE MANAGEM Normal [facility] CBC W Auto Differential pane l (Bld)on 07-27-2022 Basophils (Bld) [#/Vol] 0.00 10*3/uL Normal <0.11 [facility] Comment on above: Order Comment: Speci men Type: BLOOD SPECIMENOrdering Facility: [facility] Address: [address] [place] [address] Performed By: #### 5 7021-8 ####[facility] LABCLIA [id number] [place] [address] [place] Basophils/100 WBC (Bld) 0.0 % Normal [facility] Comment on above: Order Comment: Speci men Type: BLOOD SPECIMENOrdering Facility: [facility] Address: [address] [place] [address] Performed By: #### 5 7021-8 ####[facility] LABCLIA [id number] [place] [address] [place] Differential cell count method Nom (Bld) Manual Normal [facility] Comment on above: Order Comment: Speci men Type: BLOOD SPECIMENOrdering Facility: [facility] Address: [address] [place] [address] Performed By: #### 5 7021-8 ####[facility] LABCLIA [id number] [place] [address] [place] Eosinophils (Bld) [#/Vol] 0.14 10*3/uL Normal <0.46 [facility] Comment on above: Order Comment: Speci men Type: BLOOD SPECIMENOrdering Facility: [facility] Address: [address] [place] [address] Performed By: #### 5 7021-8 ####[facility] LABCLIA [id number] [place] [address] [place] Eosinophils/100 WBC (Bld) 2.0 % Normal [facility] Comment on above: Order Comment: Speci men Type: BLOOD SPECIMENOrdering Facility: [facility] Address: [address] Performed By: #### 5 7021-8 ####[facility] LABIA [id number] [place] [address] [place] Erythrocyte distribution width (RBC) [Ratio] 14.4 % Normal 11.5-15.0 [facility] Comment on above: Order Comment: Speci men Type: BLOOD SPECIMENOrdering Facility: [facility] Address: [address] Performed By: #### 5 7021-8 ####[facility] LABIA [id number] [place] [address] [place] Hematocrit (Bld) [Volume fraction] 32.8 % Low 39.0-51.0 [facility] Comment on above: Order Comment: Speci men Type: BLOOD SPECIMENOrdering Facility: [facility] Address: [address] [place], [place] [address] Performed By: #### 5 7021-8 ####[facility] LABIA [id number] [place] [address] [place] Hemoglobin (Bld) [Mass/Vol] 10.5 g/dL Low 13.0-17.0 [facility] Comment on above: Order Comment: Speci men Type: BLOOD SPECIMENOrdering Facility: [facility] Address: [address] [place], [place] [address] Performed By: #### 5 7021-8 ####[facility] LABIA [id number] [place] [address] [place] Lymphocytes (Bld) [#/Vol] 1.22 10*3/uL Normal 1.00-4.00 [facility] Comment on above: Order Comment: Speci men Type: BLOOD SPECIMENOrdering Facility: [facility] Address: [address] [place], [place] [address] Performed By: #### 5 7021-8 ####[facility] LABIA [id number] [address] STATES [facility] Lymphocytes/100 WBC (Bld) 17.0 % Normal [facility] Comment on above: Order Comment: Speci men Type: BLOOD SPECIMENOrdering Facility: [facility] Address: [address] [place], [place] [address] Performed By: #### 5 7021-8 ####[facility] LABIA [id number] [place] [address] [place] MCH (RBC) [Entitic mass] 28.4 pg Normal 26.0-34.0 [facility] Comment on above: Order Comment: Speci men Type: BLOOD SPECIMENOrdering Facility: [facility] Address: [address] [place], [place] [address] Performed By: #### 5 7021-8 ####[facility] [id number] [address] STATES [facility] MCHC (RBC) [Mass/Vol] 32.0 g/dL Normal 30.5-36.0 [facility] Comment on above: Order Comment: Speci men Type: BLOOD SPECIMENOrdering Facility: SELECT [facility] Address: [address] [place], [place] [address] Performed By: #### 5 7021-8 ####[facility] LABIA [id number] [address] [place] MCV (RBC) [Entitic vol] 88.6 fL Normal 80.0-100.0 C [facility] Comment on above: Order Comment: Speci men Type: BLOOD SPECIMENOrdering Facility: [facility] Address: [address] [place], [place] [address] Performed By: #### 5 7021-8 ####[facility] [id number] [id number] [address] [place] Monocytes (Bld) [#/Vol] 0.29 10*3/uL Normal <0.87 [facility] Comment on above: Order Comment: Speci men Type: BLOOD SPECIMENOrdering Facility: [facility] Address: [address] [place] [address] Performed By: #### 5 7021-8 ####[facility] LABCLIA [id number] [facility] [place] [address] [place] Monocytes/100 WBC (Bld) 4.0 % Normal C [facility] Comment on above: Order Comment: Speci men Type: BLOOD SPECIMENOrdering Facility: [facility] Address: [address] [place] [address] Performed By: #### 5 7021-8 ####[facility] LABCLIA [id number] [place] [address] [place] MYELO% 5.0 % Normal [facility] Comment on above: Order Comment: Speci men Type: BLOOD SPECIMENOrdering Facility: [facility] Address: [address] [place], [place] [address] Performed By: #### 5 7021-8 ####[facility] LABCLIA [id number] [place] [address] [place] Neutrophils (Bld) [#/Vol] 5.17 10*3/uL Normal 1.45-7.50 [facility] Comment on above: Order Comment: Speci men Type: BLOOD SPECIMENOrdering Facility: [facility] Address: [address] [place], [place] [address] Performed By: #### 5 7021-8 ####[facility] LABCLIA [id number] [address] [place] Neutrophils/100 WBC (Bld) 72.0 % Normal [facility] Comment on above: Order Comment: Speci men Type: BLOOD SPECIMENOrdering Facility: [facility] Address: [address] [place], [place] [address] Performed By: #### 5 7021-8 ####[facility] LABCLIA [id number] [place] [address] [place] Nucleated RBC (Bld) [#/Vol] 10*3/uL Normal <0.01 [facility] Comment on above: Order Comment: Speci men Type: BLOOD SPECIMENOrdering Facility: [facility] Address: [address] [place], [place] [address] Performed By: #### 5 7021-8 ####[facility] LABIA [id number] [place] [address] [place] Nucleated RBC/100 WBC (Bld) [Ratio] 0.0 /100 WBC Normal [facility] Comment on above: Order Comment: Speci men Type: BLOOD SPECIMENOrdering Facility: [facility] Address: [address] [place], [place] [address] Performed By: #### 5 7021-8 ####[facility] LABIA [id number] [place] [address] [place] Ovalocytes LM Ql (Bld) Few Normal [facility] Comment on above: Order Comment: Speci men Type: BLOOD SPECIMENOrdering Facility: [facility] Address: [address] [place], [place] [address] Performed By: #### 5 7021-8 ####[facility] LABIA [id number] [place] [address] [place] Platelet mean volume (Bld) [Entitic vol] 10.0 fL Normal 9.0-12.7 [facility] Comment on above: Order Comment: Speci men Type: BLOOD SPECIMENOrdering Facility: [facility] Address: [address] [place], [place] [address] Performed By: #### 5 7021-8 ####[facility] LABCLIA [id number] [place] [address] [place] Platelets (Bld) [#/Vol] 333 10*3/uL Normal 150-400 [facility] Comment on above: Order Comment: Speci men Type: BLOOD SPECIMENOrdering Facility: [facility] Address: [address] [place], [place] [address] Performed By: #### 5 7021-8 ####[facility] LABCLIA [id number] [place] [address] [place] Platelets Estimate (Bld) [#/Vol] Adequate Normal [facility] Comment on above: Order Comment: Speci men Type: BLOOD SPECIMENOrdering Facility: [facility] Address: [address] [place], [place] [address] Performed By: #### 5 7021-8 ####[facility] LABCLIA [id number] [place] [address] [place] RBC (Bld) [#/Vol] 3.70 10*6/uL Low 4.20-6.00 [facility] Comment on above: Order Comment: Speci men Type: BLOOD SPECIMENOrdering Facility: [facility] Address: [address] [place], [place] [address] Performed By: #### 5 7021-8 ####[facility] LABCLIA [id number] [place] [address] [place] RED CELL MORPH Reviewed: see results of individual morphologies Normal [facility] Comment on above: Order Comment: Speci men Type: BLOOD SPECIMENOrdering Facility: [facility] Address: [address] [place] [address] Performed By: #### 5 7021-8 ####[facility] LABCLIA [id number] [place] [address] [place] WBC (Bld) [#/Vol] 7.18 10*3/uL Normal 3.70-11.00 [facility] Comment on above: Order Comment: Speci men Type: BLOOD SPECIMENOrdering Facility: [facility] Address: [address] Performed By: #### 5 7021-8 ####[facility] LABCLIA [id number] [place] [address] [place] WBC Left Shift Ql (Bld) Present Normal C [facility] Comment on above: Order Comment: Speci men Type: BLOOD SPECIMENOrdering Facility: [facility] Address: [address] Performed By: #### 5 7021-8 ####[facility] LABCLIA [id number] [place] [address] [place] CNDSon 07-27-2022 CNDS Normal [facility] PT EDon 07-27-2022 PT ED Normal [facility] Renal function 2000 panelon 07-27-2022 Albumin [Mass/Vol] 3.0 g/dL Low 3.9-4.9 [facility] Comment on above: Order Comment: Speci men Type: BLOOD SPECIMENOrdering Facility: [facility] Address: [address] Performed By: #### 2 4362-6 ####[facility] LABCLIA [id number] [place] [address] [place] Anion gap [Moles/Vol] 9 mmol/L Normal 9-18 [facility] Comment on above: Order Comment: Speci men Type: BLOOD SPECIMENOrdering Facility: [facility] Address: [address] [place] [id number] Performed By: #### 2 4362-6 ####[facility] LABCLIA [id number] [place] [address] [place] Calcium [Mass/Vol] 8.7 mg/dL Normal 8.5-10.2 [facility] Comment on above: Order Comment: Speci men Type: BLOOD SPECIMENOrdering Facility: [facility] Address: [address] Performed By: #### 2 4362-6 ####[facility] LABCLIA [id number] [place] [address] [place] Chloride [Moles/Vol] 105 mmol/L Normal 97-105 [facility] Comment on above: Order Comment: Speci men Type: BLOOD SPECIMENOrdering Facility: [facility] Address: [address] [place] [address] Performed By: #### 2 4362-6 ####[facility] LABCLIA [id number] [place] [address] [place] CO2 [Moles/Vol] 23 mmol/L Normal 22-30 [facility] Comment on above: Order Comment: Speci men Type: BLOOD SPECIMENOrdering Facility: [facility] Address: [address] [place] [address] Performed By: #### 2 4362-6 ####[facility] LABCLIA [id number] [address] [place] Creatinine [Mass/Vol] 0.72 mg/dL Low 0.73-1.22 [facility] Comment on above: Order Comment: Speci men Type: BLOOD SPECIMENOrdering Facility: [facility] Address: [address] [place] [address] Performed By: #### 2 4362-6 ####[facility] LABIA [id number] [address] ESTIMATED GLOMERULAR FILTRATION RATE 100 mL/min/1.73m??? Normal >=60 [facility] Comment on above: Order Comment: Speci men Type: BLOOD SPECIMENOrdering Facility: [facility] Address: [address] [place] [address] Result Comment: Ignacia mated Glomerular Filtration Rate (eGFR) is calculated using the 2020 CKD-EPI creatinine equation. This equation utilizes serum creatinine, sex, and age as parameters. The creatinine assay has traceable calibration to isotope dilution-mass spectrometry. Refer to KDIGO guidelines for clinical interpretation. In patients with unstable renal function, e.g. those with acute kidney injury, the eGFR may not accurately reflect actual GFR. Performed By: #### 2 4362-6 ####[facility] LABIA [id number] [address] [address] [place] Glucose [Mass/Vol] 100 mg/dL High 74-99 [facility] Comment on above: Order Comment: Speci men Type: BLOOD SPECIMENOrdering Facility: [facility] Address: [address] [place], [place] [address] Result Comment: The [place] Diabetes [employer] (ADA) provides guidance for cutoff values for fasting glucose and random glucose. The ADA defines fasting as no caloric intake for at least 8 hours. Fasting plasma glucose results between 100 to 125 mg/dL indicate increased risk for diabetes (prediabetes).Fasting plasma glucose results greater than or equal to 126 mg/dL meet the criteria for diagnosis of diabetes. In the absence of unequivocal hyperglycemia, results should be confirmed by repeat testing. In a patient with classic symptoms of hyperglycemia or hyperglycemic crisis, random plasma glucose results greater than or equal to 200 mg/dL meet the criteria for diagnosis of diabetes.Reference: Standards of Medical Care in Diabetes 2016, [place] [employer]. Diabetes Care. 2016.39(Suppl 1). Performed By: #### 2 4362-6 ####[facility] LABIA [id number] [place] [address] [place] Phosphate [Mass/Vol] 3.3 mg/dL Normal 2.7-4.8 [facility] Comment on above: Order Comment: [place] men Type: BLOOD SPECIMENOrdering Facility: [facility] Address: [address] [place] [address] Performed By: #### 2 4362-6 ####[facility] LABIA [id number] [address] [address] [place] Potassium [Moles/Vol] 4.3 mmol/L Normal 3.7-5.1 [facility] Comment on above: Order Comment: [place] men Type: BLOOD SPECIMENOrdering Facility: [facility] Address: [address] Performed By: #### 2 4362-6 ####[facility] LABCLIA [id number] [place] [address] [place] Sodium [Moles/Vol] 137 mmol/L Normal 136-144 [facility] Comment on above: Order Comment: Speci men Type: BLOOD SPECIMENOrdering Facility: [facility] Address: [address] [place] [address] Performed By: #### 2 4362-6 ####[facility] LABCLIA [id number] [place] [address] [place] Urea nitrogen [Mass/Vol] 9 mg/dL Normal 9-24 [facility] Comment on above: Order Comment: Speci men Type: BLOOD SPECIMENOrdering Facility: [facility] Address: [address] [place], [place] [address] Performed By: #### 2 4362-6 ####[facility] LABIA [id number] [place] [address] [place] THERAPY NTon 07-27-2022 THERAPY NT Normal [facility] THERAPY NT Normal [facility] CASE MANAGEMon 07-26-2022 CASE MANAGEM Normal [facility] CBC panel Auto (Bld)on 07-26 Erythrocyte distribution width (RBC) [Ratio] 14.6 % Normal 11.5-15.0 [facility] Comment on above: Order Comment: Speci men Type: BLOOD SPECIMENOrdering Facility: [facility] Address: [address] [place], [place] [address] Performed By: #### 5 8410-2 ####[facility] LABCLIA [id number] [place] [address] [place] Hematocrit (Bld) [Volume fraction] 30.3 % Low 39.0-51.0 [facility] Comment on above: Order Comment: Speci men Type: BLOOD SPECIMENOrdering Facility: [facility] Address: [address] [place] [address] Performed By: #### 5 8410-2 ####[facility] [id number] [address] [place] Hemoglobin (Bld) [Mass/Vol] 9.9 g/dL Low 13.0-17.0 [facility] Comment on above: Order Comment: Speci men Type: BLOOD SPECIMENOrdering Facility: [facility] Address: [address] [place] [address] Performed By: #### 5 8410-2 ####[facility] [id number] [address] [place] MCH (RBC) [Entitic mass] 28.4 pg Normal 26.0-34.0 [facility] Comment on above: Order Comment: Speci men Type: BLOOD SPECIMENOrdering Facility: [facility] Address: [address] [place] [address] Performed By: #### 5 8410-2 ####[facility] [id number] [address] [place] MCHC (RBC) [Mass/Vol] 32.7 g/dL Normal 30.5-36.0 [facility] Comment on above: Order Comment: Speci men Type: BLOOD SPECIMENOrdering Facility: [facility] Address: [address] Performed By: #### 5 8410-2 ####[facility] [id number] [address] [place] MCV (RBC) [Entitic vol] 87.1 fL Normal 80.0-100.0 C [facility] Comment on above: Order Comment: Speci men Type: BLOOD SPECIMENOrdering Facility: [facility] Address: [address] [place], [place] [address] Performed By: #### 5 8410-2 ####[facility] LABCLIA [id number] [place] [address] [place] Nucleated RBC (Bld) [#/Vol] 10*3/uL Normal <0.01 [facility] Comment on above: Order Comment: Speci men Type: BLOOD SPECIMENOrdering Facility: [facility] Address: [address] [place] [address] Performed By: #### 5 8410-2 ####[facility] LABIA [id number] [place] [address] [place] Platelet mean volume (Bld) [Entitic vol] 10.9 fL Normal 9.0-12.7 [facility] Comment on above: Order Comment: Speci men Type: BLOOD SPECIMENOrdering Facility: [facility] Address: [address] [place] [address] Performed By: #### 5 8410-2 ####[facility] LABIA [id number] [place] [address] [place] Platelets (Bld) [#/Vol] 302 10*3/uL Normal 150-400 [facility] Comment on above: Order Comment: Speci men Type: BLOOD SPECIMENOrdering Facility: [facility] Address: [address] [place] [address] Performed By: #### 5 8410-2 ####[facility] LABIA [id number] [place] [address] [place] RBC (Bld) [#/Vol] 3.48 10*6/uL Low 4.20-6.00 [facility] Comment on above: Order Comment: Speci men Type: BLOOD SPECIMENOrdering Facility: [facility] Address: [address] [place] [address] Performed By: #### 5 8410-2 ####[facility] LABIA [id number] [place] [address] [place] WBC (Bld) [#/Vol] 7.84 10*3/uL Normal 3.70-11.00 [facility] Comment on above: Order Comment: Speci men Type: BLOOD SPECIMENOrdering Facility: [facility] Address: [address] [place] [address] Performed By: #### 5 8410-2 ####[facility] LABCLIA [id number] [place] [address] [place] CONSULT PROGon 07-26-2022 CONSULT PROG Normal [facility] Magnesium SerPl-mCncon 07-26 Magnesium [Mass/Vol] 1.7 mg/dL Normal 1.7-2.3 [facility] Comment on above: Order Comment: Speci men Type: BLOOD SPECIMENOrdering Facility: [facility] Address: [address] [place], [place] [address] Performed By: #### 2 4362-6, ####[facility] LABCLIA [id number] [place] [address] [place] NUTRITIONon 07-26-2022 NUTRITION Normal [facility] Renal function 2000 panelon 07-26-2022 Albumin [Mass/Vol] 2.8 g/dL Low 3.9-4.9 [facility] Comment on above: Order Comment: Speci men Type: BLOOD SPECIMENOrdering Facility: [facility] Address: [address] [place], [place] [address] Performed By: #### 2 4362-6, ####[facility] LABIA [id number] [place] [address] [place] Anion gap [Moles/Vol] 8 mmol/L Low 9-18 [facility] Comment on above: Order Comment: Speci men Type: BLOOD SPECIMENOrdering Facility: [facility] Address: [address] [place], [place] [address] Performed By: #### 2 4362-6, ####[facility] LABCLIA [id number] [facility] [place] [address] [place] Calcium [Mass/Vol] 8.4 mg/dL Low 8.5-10.2 [facility] Comment on above: Order Comment: Speci men Type: BLOOD SPECIMENOrdering Facility: [facility] Address: [address] [place] [address] Performed By: #### 2 436-6, ####[facility] LABCLIA [id number] [facility] [place] [address] [place] Chloride [Moles/Vol] 105 mmol/L Normal 97-105 [facility] Comment on above: Order Comment: Speci men Type: BLOOD SPECIMENOrdering Facility: [facility] Address: [address] [place] [address] Performed By: #### 2 4366, ####[facility] LABCLIA [id number] [place] [address] [place] CO2 [Moles/Vol] 24 mmol/L Normal 22-30 [facility] Comment on above: Order Comment: Speci men Type: BLOOD SPECIMENOrdering Facility: [facility] Address: [address] [place] [address] Performed By: #### 2 4366, ####[facility] LABCLIA [id number] [place] [address] [place] Creatinine [Mass/Vol] 0.71 mg/dL Low 0.73-1.22 [facility] Comment on above: Order Comment: Speci men Type: BLOOD SPECIMENOrdering Facility: [facility] Address: [address] [place], [place] [address] Performed By: #### 2 436-6, ####[facility] LABCLIA [id number] [place] [address] [place] ESTIMATED GLOMERULAR FILTRATION RATE 101 mL/min/1.73m??? Normal >=60 [facility] Comment on above: Order Comment: Cierra cartwright Type: BLOOD SPECIMENOrdering Facility: [facility] Address: [address] [place], [place] [address] Result Comment: Ignacia mated Glomerular Filtration Rate (eGFR) is calculated using the 2020 CKD-EPI creatinine equation. This equation utilizes serum creatinine, sex, and age as parameters. The creatinine assay has traceable calibration to isotope dilution-mass spectrometry. Refer to KDIGO guidelines for clinical interpretation. In patients with unstable renal function, e.g. those with acute kidney injury, the eGFR may not accurately reflect actual GFR. Performed By: #### 2 4362-6, 81716-2 ####[facility] LABCLIA [id number] [place] [address] [place] Glucose [Mass/Vol] 107 mg/dL High 74-99 [facility] Comment on above: Order Comment: Cierra cartwright Type: BLOOD SPECIMENOrdering Facility: [facility] Address: [address] [place], [place] [address] Result Comment: The [place] Diabetes Association (ADA) provides guidance for cutoff values for fasting glucose and random glucose. The ADA defines fasting as no caloric intake for at least 8 hours. Fasting plasma glucose results between 100 to 125 mg/dL indicate increased risk for diabetes (prediabetes).Fasting plasma glucose results greater than or equal to 126 mg/dL meet the criteria for diagnosis of diabetes. In the absence of unequivocal hyperglycemia, results should be confirmed by repeat testing. In a patient with classic symptoms of hyperglycemia or hyperglycemic crisis, random plasma glucose results greater than or equal to 200 mg/dL meet the criteria for diagnosis of diabetes.Reference: Standards of Medical Care in Diabetes 2016, [place] [employer]. Diabetes Care. 2016.39(Suppl 1). Performed By: #### 2 4362-6, 81824-4 ####[facility] LABIA [id number] [place] [id number] [place] Phosphate [Mass/Vol] 2.5 mg/dL Low 2.7-4.8 [facility] Comment on above: Order Comment: Speci men Type: BLOOD SPECIMENOrdering Facility: [facility] Address: [address] Performed By: #### 2 4362-6, ####[facility] LABCLIA [id number] [place] [address] [place] Potassium [Moles/Vol] 4.3 mmol/L Normal 3.7-5.1 [facility] Comment on above: Order Comment: Speci men Type: BLOOD SPECIMENOrdering Facility: [facility] Address: [address] Performed By: #### 2 4362-6, ####[facility] LABIA [id number] [place] [address] [place] Sodium [Moles/Vol] 137 mmol/L Normal 136-144 [facility] Comment on above: Order Comment: Speci men Type: BLOOD SPECIMENOrdering Facility: [facility] Address: [address] Performed By: #### 2 4362-6, ####[facility] LABIA [id number] [place] [address] [place] Urea nitrogen [Mass/Vol] 11 mg/dL Normal 9-24 [facility] Comment on above: Order Comment: Speci men Type: BLOOD SPECIMENOrdering Facility: [facility] Address: [address] Performed By: #### 2 4362-6, ####[facility] LABIA [id number] [place] [address] [place] CBC panel Auto (Bld)on 07-25 Erythrocyte distribution width (RBC) [Ratio] 14.5 % Normal 11.5-15.0 [facility] Comment on above: Order Comment: Speci men Type: BLOOD SPECIMENOrdering Facility: [facility] Address: [address] Performed By: #### 5 8410-2 ####[facility] LABCLIA [id number] [place] [address] [place] Hematocrit (Bld) [Volume fraction] 28.4 % Low 39.0-51.0 [facility] Comment on above: Order Comment: Speci men Type: BLOOD SPECIMENOrdering Facility: [facility] Address: [address] Performed By: #### 5 8410-2 ####[facility] LABIA [id number] [place] [address] [place] Hemoglobin (Bld) [Mass/Vol] 10.0 g/dL Low 13.0-17.0 [facility] Comment on above: Order Comment: Speci men Type: BLOOD SPECIMENOrdering Facility: [facility] Address: [address] [address] Performed By: #### 5 8410-2 ####[facility] LABIA [id number] [place] [address] [place] MCH (RBC) [Entitic mass] 28.4 pg Normal 26.0-34.0 [facility] Comment on above: Order Comment: Speci men Type: BLOOD SPECIMENOrdering Facility: [facility] Address: [address] Performed By: #### 5 8410-2 ####[facility] LABCLIA [id number] [place] [address] [place] MCHC (RBC) [Mass/Vol] 35.2 g/dL Normal 30.5-36.0 [facility] Comment on above: Order Comment: Speci men Type: BLOOD SPECIMENOrdering Facility: [facility] Address: [address] Performed By: #### 5 8410-2 ####[facility] LABCLIA [id number] [place] [address] [place] MCV (RBC) [Entitic vol] 80.7 fL Normal 80.0-100.0 [facility] Comment on above: Order Comment: Speci men Type: BLOOD SPECIMENOrdering Facility: [facility] Address: [address] [place] [address] Performed By: #### 5 8410-2 ####[facility] [id number] [place] [address] [place] Nucleated RBC (Bld) [#/Vol] 10*3/uL Normal <0.01 [facility] Comment on above: Order Comment: Speci men Type: BLOOD SPECIMENOrdering Facility: [facility] Address: [address] [place] [address] Performed By: #### 5 8410-2 ####[facility] [id number] [address] [place] Platelet mean volume (Bld) [Entitic vol] 10.7 fL Normal 9.0-12.7 [facility] Comment on above: Order Comment: Speci men Type: BLOOD SPECIMENOrdering Facility: [facility] Address: [address] [place], [place] [address] Performed By: #### 5 8410-2 ####[facility] [id number] [place] [address] [place] Platelets (Bld) [#/Vol] 206 10*3/uL Normal 150-400 [facility] Comment on above: Order Comment: Speci men Type: BLOOD SPECIMENOrdering Facility: [facility] Address: [address] [place], [place] [address] Performed By: #### 5 8410-2 ####[facility] [id number] [place] [address] [place] RBC (Bld) [#/Vol] 3.52 10*6/uL Low 4.20-6.00 [facility] Comment on above: Order Comment: Speci men Type: BLOOD SPECIMENOrdering Facility: [facility] Address: [address] [place], [place] [address] Performed By: #### 5 8410-2 ####[facility] LABCLIA [id number] [place] [address] [place] WBC (Bld) [#/Vol] 12.49 10*3/uL High 3.70-11.00 [facility] Comment on above: Order Comment: Speci men Type: BLOOD SPECIMENOrdering Facility: [facility] Address: [address] [place], [place] [address] Performed By: #### 5 8410-2 ####[facility] LABCLIA [id number] [place] [address] [place] NURSING PROGon 07-25-2022 NURSING PROG Normal [facility] Renal function 2000 panelon 07-25-2022 Albumin [Mass/Vol] 2.5 g/dL Low 3.9-4.9 [facility] Comment on above: Order Comment: Speci men Type: BLOOD SPECIMENOrdering Facility: [facility] Address: [address] [place], [place] [address] Performed By: #### 2 4362-6 ####[facility] LABCLIA [id number] [place] [address] [place] Anion gap [Moles/Vol] 9 mmol/L Normal 9-18 [facility] Comment on above: Order Comment: Speci men Type: BLOOD SPECIMENOrdering Facility: [facility] Address: [address] [place], [place] [address] Performed By: #### 2 4362-6 ####[facility] LABCLIA [id number] [place] [address] [place] Calcium [Mass/Vol] 8.1 mg/dL Low 8.5-10.2 [facility] Comment on above: Order Comment: Speci men Type: BLOOD SPECIMENOrdering Facility: [facility] Address: [address] Performed By: #### 2 4362-6 ####[facility] LABCLIA [id number] [place] [address] [place] Chloride [Moles/Vol] 105 mmol/L Normal 97-105 [facility] Comment on above: Order Comment: Speci men Type: BLOOD SPECIMENOrdering Facility: [facility] Address: [address] [address] Performed By: #### 2 4362-6 ####[facility] LABCLIA [id number] [place] [address] [place] CO2 [Moles/Vol] 25 mmol/L Normal 22-30 [facility] Comment on above: Order Comment: Speci men Type: BLOOD SPECIMENOrdering Facility: [facility] Address: [address] [place], [place] [address] Performed By: #### 2 4362-6 ####[facility] LABCLIA [id number] [place] [address] [place] Creatinine [Mass/Vol] 0.70 mg/dL Low 0.73-1.22 [facility] Comment on above: Order Comment: Speci men Type: BLOOD SPECIMENOrdering Facility: [facility] Address: [address] Performed By: #### 2 4362-6 ####[facility] LABCLIA [id number] [place] [address] [place] ESTIMATED GLOMERULAR FILTRATION RATE 101 mL/min/1.73m??? Normal >=60 [facility] Comment on above: Order Comment: Speci men Type: BLOOD SPECIMENOrdering Facility: [facility] Address: [address] [place], [place] [address] Result Comment: Ignacia mated Glomerular Filtration Rate (eGFR) is calculated using the 2020 CKD-EPI creatinine equation. This equation utilizes serum creatinine, sex, and age as parameters. The creatinine assay has traceable calibration to isotope dilution-mass spectrometry. Refer to KDIGO guidelines for clinical interpretation. In patients with unstable renal function, e.g. those with acute kidney injury, the eGFR may not accurately reflect actual GFR. Performed By: #### 2 4362-6 ####[facility] LABIA [id number] [place] [address] [place] Glucose [Mass/Vol] 118 mg/dL High 74-99 [facility] Comment on above: Order Comment: Cierra cartwright Type: BLOOD SPECIMENOrdering Facility: [facility] Address: [address] [place] [address] Result Comment: The [place] Diabetes Association (ADA) provides guidance for cutoff values for fasting glucose and random glucose. The ADA defines fasting as no caloric intake for at least 8 hours. Fasting plasma glucose results between 100 to 125 mg/dL indicate increased risk for diabetes (prediabetes).Fasting plasma glucose results greater than or equal to 126 mg/dL meet the criteria for diagnosis of diabetes. In the absence of unequivocal hyperglycemia, results should be confirmed by repeat testing. In a patient with classic symptoms of hyperglycemia or hyperglycemic crisis, random plasma glucose results greater than or equal to 200 mg/dL meet the criteria for diagnosis of diabetes.Reference: Standards of Medical Care in Diabetes 2016, [place] Diabetes Association. Diabetes Care. 2016.39(Suppl 1). Performed By: #### 2 4362-6 ####[facility] LABIA [id number] [address] [id number] [place] Phosphate [Mass/Vol] 2.9 mg/dL Normal 2.7-4.8 [facility] Comment on above: Order Comment: Cierra cartwright Type: BLOOD SPECIMENOrdering Facility: [facility] Address: [address] [place] [address] Performed By: #### 2 4362-6 ####[facility] LABIA [id number] [address] [id number] [place] Potassium [Moles/Vol] 3.8 mmol/L Normal 3.7-5.1 [facility] Comment on above: Order Comment: Speci men Type: BLOOD SPECIMENOrdering Facility: [facility] Address: [address] [place] [address] Performed By: #### 2 4362-6 ####[facility] LABCLIA [id number] [place] [address] [place] Sodium [Moles/Vol] 139 mmol/L Normal 136-144 [facility] Comment on above: Order Comment: Speci men Type: BLOOD SPECIMENOrdering Facility: [facility] Address: [address] [place] [address] Performed By: #### 2 4362-6 ####[facility] LABCLIA [id number] [place] [address] [place] Urea nitrogen [Mass/Vol] 13 mg/dL Normal 9-24 [facility] Comment on above: Order Comment: Speci men Type: BLOOD SPECIMENOrdering Facility: [facility] Address: [address] [place] [address] Performed By: #### 2 4362-6 ####[facility] LABCLIA [id number] [place] [address] [place] CONSULT PROGon 07-24-2022 CONSULT PROG Normal [facility] NURSING PROGon 07-24-2022 NURSING PROG Normal [facility] NURSING PROG Normal [facility] STOOL CULTUREon 07-24-2022 Campylobacter Culture Final report Normal [facility] Comment on above: Performed By: #### L ACT #### [facility] [address] [place] [address] Dr. Cuba Weber E coli Shiga Toxin EIA Negative Normal Negative [facility] Comment on above: Performed By: #### L ACT #### [facility] [address] [address] [address] Cuba Weber Result 1 Comment Normal [facility] Comment on above: Result Comment: No S almonella or Shigella recovered. Performed By: #### L ACT #### [facility] [address] [address] [address] Cuba Weber Result Comment: No C ampylobacter species isolated. Salmonella/Shigella Screen Final report Normal [facility] Comment on above: Performed By: #### L ACT #### [facility] [address] [address] [address] Cuba Weber Bacteria Ur Culton 3 Bacteria identified Cx Nom (U) Abnormal [facility] Comment on above: Performed By: #### 6 30-4 ####[facility] LABCLIA [id number] [place] [address] [place] CASE MGT INIT ASSESon 2022 CASE MGT INIT ASSES Normal [facility] CBC panel Auto (Bld)on 07-23 Erythrocyte distribution width (RBC) [Ratio] 14.2 % Normal 11.5-15.0 [facility] Comment on above: Order Comment: Speci men Type: BLOOD SPECIMENOrdering Facility: [facility] Address: [address] [place] [address] Performed By: #### 5 8410-2 ####[facility] LABCLIA [id number] [place] [address] [place] Hematocrit (Bld) [Volume fraction] 33.1 % Low 39.0-51.0 [facility] Comment on above: Order Comment: Speci men Type: BLOOD SPECIMENOrdering Facility: [facility] Address: [address] [place] [address] Performed By: #### 5 8410-2 ####[facility] LABCLIA [id number] [place] [address] [place] Hemoglobin (Bld) [Mass/Vol] 11.5 g/dL Low 13.0-17.0 [facility] Comment on above: Order Comment: Speci men Type: BLOOD SPECIMENOrdering Facility: [facility] Address: [address] Performed By: #### 5 8410-2 ####[facility] [id number] [address] MCH (RBC) [Entitic mass] 28.5 pg Normal 26.0-34.0 [facility] Comment on above: Order Comment: Speci men Type: BLOOD SPECIMENOrdering Facility: [facility] Address: [address] Performed By: #### 5 8410-2 ####[facility] [id number] [address] MCHC (RBC) [Mass/Vol] 34.7 g/dL Normal 30.5-36.0 [facility] Comment on above: Order Comment: Speci men Type: BLOOD SPECIMENOrdering Facility: [facility] Address: [address] Performed By: #### 5 8410-2 ####[facility] [id number] [address] [place] MCV (RBC) [Entitic vol] 81.9 fL Normal 80.0-100.0 [facility] Comment on above: Order Comment: Speci men Type: BLOOD SPECIMENOrdering Facility: [facility] Address: [address] Performed By: #### 5 8410-2 ####[facility] [id number] [address] [place] Nucleated RBC (Bld) [#/Vol] 10*3/uL Normal <0.01 [facility] Comment on above: Order Comment: Speci men Type: BLOOD SPECIMENOrdering Facility: [facility] Address: [address] Performed By: #### 5 8410-2 ####[facility] LABCLIA [id number] [place] [address] [place] Platelet mean volume (Bld) [Entitic vol] 12.5 fL Normal 9.0-12.7 [facility] Comment on above: Order Comment: Speci men Type: BLOOD SPECIMENOrdering Facility: [facility] Address: [address] [place] [address] Performed By: #### 5 8410-2 ####[facility] LABIA [id number] [place] [address] [place] Platelets (Bld) [#/Vol] 87 10*3/uL Low 150-400 [facility] Comment on above: Order Comment: Speci men Type: BLOOD SPECIMENOrdering Facility: [facility] Address: [address] [place] [address] Result Comment: No c lot detected. Performed By: #### 5 8410-2 ####[facility] LABIA [id number] [place] [address] [place] RBC (Bld) [#/Vol] 4.04 10*6/uL Low 4.20-6.00 [facility] Comment on above: Order Comment: Speci men Type: BLOOD SPECIMENOrdering Facility: [facility] Address: [address] [place], [place] [address] Performed By: #### 5 8410-2 ####[facility] LABIA [id number] [place] [address] [place] WBC (Bld) [#/Vol] 11.10 10*3/uL High 3.70-11.00 [facility] Comment on above: Order Comment: Speci men Type: BLOOD SPECIMENOrdering Facility: [facility] Address: [address] [place] [address] Performed By: #### 5 8410-2 ####[facility] LABIA [id number] [address] [place] Erythrocyte distribution width (RBC) [Ratio] 14.8 % Normal 11.5-15.0 [facility] Comment on above: Order Comment: Speci men Type: BLOOD SPECIMENOrdering Facility: [facility] Address: [address] [place] [address] Performed By: #### 5 8410-2 ####[facility] LABIA [id number] [address] [place] Hematocrit (Bld) [Volume fraction] 32.6 % Low 39.0-51.0 [facility] Comment on above: Order Comment: Speci men Type: BLOOD SPECIMENOrdering Facility: [facility] Address: [address] [place] [address] Performed By: #### 5 8410-2 ####[facility] LABIA [id number] [place] [address] [place] Hemoglobin (Bld) [Mass/Vol] 11.2 g/dL Low 13.0-17.0 [facility] Comment on above: Order Comment: Speci men Type: BLOOD SPECIMENOrdering Facility: [facility] Address: [address] [place] [address] Performed By: #### 5 8410-2 ####[facility] LABIA [id number] [place] [address] [place] MCH (RBC) [Entitic mass] 28.7 pg Normal 26.0-34.0 [facility] Comment on above: Order Comment: Speci men Type: BLOOD SPECIMENOrdering Facility: [facility] Address: [address] [place], [place] [address] Performed By: #### 5 8410-2 ####[facility] LABIA [id number] [place] [address] [place] MCHC (RBC) [Mass/Vol] 34.4 g/dL Normal 30.5-36.0 [facility] Comment on above: Order Comment: Speci men Type: BLOOD SPECIMENOrdering Facility: [facility] Address: [address] Performed By: #### 5 8410-2 ####[facility] LABIA [id number] [address] [place] MCV (RBC) [Entitic vol] 83.6 fL Normal 80.0-100.0 [facility] Comment on above: Order Comment: Speci men Type: BLOOD SPECIMENOrdering Facility: [facility] Address: [address] Performed By: #### 5 8410-2 ####[facility] [id number] [address] [place] Nucleated RBC (Bld) [#/Vol] 10*3/uL Normal <0.01 [facility] Comment on above: Order Comment: Speci men Type: BLOOD SPECIMENOrdering Facility: [facility] Address: [address] [place], [place] [address] Performed By: #### 5 8410-2 ####[facility] [id number] [address] [place] Platelet mean volume (Bld) [Entitic vol] 12.0 fL Normal 9.0-12.7 [facility] Comment on above: Order Comment: Speci men Type: BLOOD SPECIMENOrdering Facility: [facility] Address: [address] Performed By: #### 5 8410-2 ####[facility] [id number] [place] [address] [place] Platelets (Bld) [#/Vol] 61 10*3/uL Low 150-400 [facility] Comment on above: Order Comment: Speci men Type: BLOOD SPECIMENOrdering Facility: [facility] Address: [address] [place], [place] [address] Result Comment: No c lot detected. Performed By: #### 5 8410-2 ####[facility] LABCLIA [id number] [place] [address] [place] RBC (Bld) [#/Vol] 3.90 10*6/uL Low 4.20-6.00 [facility] Comment on above: Order Comment: Speci men Type: BLOOD SPECIMENOrdering Facility: [facility] Address: [address] Performed By: #### 5 8410-2 ####[facility] LABCLIA [id number] [place] [address] [place] WBC (Bld) [#/Vol] 10.61 10*3/uL Normal 3.70-11.00 [facility] Comment on above: Order Comment: Speci men Type: BLOOD SPECIMENOrdering Facility: [facility] Address: [address] Performed By: #### 5 8410-2 ####[facility] LABCLIA [id number] [place] [address] [place] CNPNon 07-23-2022 CNPN Normal [facility] CONFIRM BLOOD TYPEon 023 ABO O Normal [facility] Comment on above: Order Comment: Speci men Type: BLOOD SPECIMENOrdering Facility: [facility] Address: [address] Performed By: #### C ONABO ####[facility] BLOOD BANKCLIA [id number] [place] [address] [place] Rh Nom (Bld) Positive Normal [facility] Comment on above: Order Comment: Speci men Type: BLOOD SPECIMENOrdering Facility: [facility] Address: [address] Performed By: #### C ONABO ####[facility]ANK[facility] [id number] [place] [id number] [place] CONSULT PROGon 07-23-2022 CONSULT PROG Normal [facility] CONSULT PROG Normal [facility] CRP SerPl-mCncon 07-23-2022 CRP [Mass/Vol] 7.6 mg/dL High <0.9 [facility] Comment on above: Order Comment: Speci men Type: BLOOD SPECIMENOrdering Facility: [facility] Address: [address] [place] [address] Performed By: #### 2 4362-6, 62551-7, 12610-5, 1987- ####[facility] LABCLIA [id number] [place] [address] [place] [facility] Comprehensive metabolic 2000 panelon 07-23-2022 Albumin [Mass/Vol] 2.5 g/dL Low 3.9-4.9 [facility] Comment on above: Order Comment: Speci men Type: BLOOD SPECIMENOrdering Facility: [facility] Address: [address] [place], [place] [address] Performed By: #### 2 4323-8, 33546-0, 277- ####[facility] LABCLIA [id number] [place] [address] [place] ALP [Catalytic activity/Vol] 62 U/L Normal 38-113 [facility] Comment on above: Order Comment: Speci men Type: BLOOD SPECIMENOrdering Facility: [facility] Address: [address] [place], [place] [address] Performed By: #### 2 4323-8, 20741-0, 277- ####[facility] LABCLIA [id number] [address] [place] ALT [Catalytic activity/Vol] 19 U/L Normal 10-54 [facility] Comment on above: Order Comment: Speci men Type: BLOOD SPECIMENOrdering Facility: [facility] Address: [address] [place], [place] [address] Performed By: #### 2 4323-8, , 2776-03 ####[facility] LABIA [id number] [place] [address] [place] Anion gap [Moles/Vol] 11 mmol/L Normal 9-18 [facility] Comment on above: Order Comment: Speci men Type: BLOOD SPECIMENOrdering Facility: [facility] Address: [address] Performed By: #### 2 4323-8, , 2776-03 ####[facility] LABIA [id number] [place] [address] [place] AST [Catalytic activity/Vol] 19 U/L Normal 14-40 [facility] Comment on above: Order Comment: Speci men Type: BLOOD SPECIMENOrdering Facility: [facility] Address: [address] Performed By: #### 2 4323-8, , 2776-03 ####[facility] LABIA [id number] [place] [address] [place] Bilirubin [Mass/Vol] 0.8 mg/dL Normal 0.2-1.3 [facility] Comment on above: Order Comment: Speci men Type: BLOOD SPECIMENOrdering Facility: [facility] Address: [address] Performed By: #### 2 4323-8, , 2776-03 ####[facility] [id number] [place] [address] [place] Calcium [Mass/Vol] 7.2 mg/dL Low 8.5-10.2 [facility] Comment on above: Order Comment: Speci men Type: BLOOD SPECIMENOrdering Facility: [facility] Address: [address] Performed By: #### 2 4323-8, , 2776-03 ####[facility] LABIA [id number] [place] [address] [place] Chloride [Moles/Vol] 111 mmol/L High 97-105 [facility] Comment on above: Order Comment: Speci men Type: BLOOD SPECIMENOrdering Facility: [facility] Address: [address] [place] [address] Performed By: #### 2 4323-8, , 2776-03 ####[facility] LABIA [id number] [place] [address] [place] CO2 [Moles/Vol] 18 mmol/L Low 22-30 [facility] Comment on above: Order Comment: Speci men Type: BLOOD SPECIMENOrdering Facility: [facility] Address: [address] [place] [address] Performed By: #### 2 4328, , 2776-03 ####[facility] LABIA [id number] [place] [address] [place] Creatinine [Mass/Vol] 0.88 mg/dL Normal 0.73-1.22 [facility] Comment on above: Order Comment: Speci men Type: BLOOD SPECIMENOrdering Facility: SELECT [facility] Address: [address] [place] [address] Performed By: #### 2 432-8, , 2776-03 ####[facility] [id number] [place] [address] [place] ESTIMATED GLOMERULAR FILTRATION RATE 94 mL/min/1.73m??? Normal >=60 [facility] Comment on above: Order Comment: Speci men Type: BLOOD SPECIMENOrdering Facility: [facility] Address: [address] [place] [address] Result Comment: Ignacia mated Glomerular Filtration Rate (eGFR) is calculated using the 2020 CKD-EPI creatinine equation. This equation utilizes serum creatinine, sex, and age as parameters. The creatinine assay has traceable calibration to isotope dilution-mass spectrometry. Refer to KDIGO guidelines for clinical interpretation. In patients with unstable renal function, e.g. those with acute kidney injury, the eGFR may not accurately reflect actual GFR. Performed By: #### 2 4323-8, , 2776-03 ####[facility] LABCLIA [id number] [place] [address] [place] Glucose [Mass/Vol] 116 mg/dL High 74-99 [facility] Comment on above: Order Comment: Speccarter cartwright Type: BLOOD SPECIMENOrdering Facility: [facility] Address: [address] [address] Result Comment: The [place] Diabetes Association (ADA) provides guidance for cutoff values for fasting glucose and random glucose. The ADA defines fasting as no caloric intake for at least 8 hours. Fasting plasma glucose results between 100 to 125 mg/dL indicate increased risk for diabetes (prediabetes).Fasting plasma glucose results greater than or equal to 126 mg/dL meet the criteria for diagnosis of diabetes. In the absence of unequivocal hyperglycemia, results should be confirmed by repeat testing. In a patient with classic symptoms of hyperglycemia or hyperglycemic crisis, random plasma glucose results greater than or equal to 200 mg/dL meet the criteria for diagnosis of diabetes.Reference: Standards of Medical Care in Diabetes 2016, [place] Diabetes Association. Diabetes Care. 2016.39(Suppl 1). Performed By: #### 2 4323-8, , 2776-03 ####[facility] LABCLIA [id number] [place] [address] [place] Potassium [Moles/Vol] 3.5 mmol/L Low 3.7-5.1 [facility] Comment on above: Order Comment: Cierra cartwright Type: BLOOD SPECIMENOrdering Facility: [facility] Address: [address] [phone] Performed By: #### 2 4323-8, , 2776-03 ####[facility] LABCLIA [id number] [place] [address] [place] Protein [Mass/Vol] 4.9 g/dL Low 6.3-8.0 [facility] Comment on above: Order Comment: Speci men Type: BLOOD SPECIMENOrdering Facility: [facility] Address: [address] [place] [address] Performed By: #### 2 4323-8, 78883-2, 2776- ####[facility] LABCLIA [id number] [place] [address] [place] Sodium [Moles/Vol] 140 mmol/L Normal 136-144 [facility] Comment on above: Order Comment: Speci men Type: BLOOD SPECIMENOrdering Facility: [facility] Address: [address] [place] [address] Performed By: #### 2 4323-8, 20483-9, 2776- ####[facility] LABCLIA [id number] [place] [address] [place] Urea nitrogen [Mass/Vol] 26 mg/dL High 9-24 [facility] Comment on above: Order Comment: Speci men Type: BLOOD SPECIMENOrdering Facility: [facility] Address: [address] [place] [address] Performed By: #### 2 4323-8, 66939-6, 277- ####[facility] LABIA [id number] [place] [address] [place] ESR Westergren method (Bld) [Velocity]on 07-23-2022 ESR (Bld) [Velocity] 44 mm/h High 0-15 [facility] Comment on above: Order Comment: Speci men Type: BLOOD SPECIMENOrdering Facility: [facility] Address: [address] [place] [address] Performed By: #### 1 6128-1, 62411-9, 4537-7 ####[facility] LABCLIA [id number] [place] [address] [place] HCV Ab Ser Qlon 07-23-2022 HCV Ab Ql (S) Positive Abnormal Negative [facility] Comment on above: Order Comment: Speci men Type: BLOOD SPECIMENOrdering Facility: [facility] Address: [address] [place] [address] Performed By: #### 1 6128-1, 26144-1, 4537-7 ####[facility] LABCLIA [id number] [place] [address] [place] HCV RNA SerPl ROSSANA+probe-aCnc on 07-23-2022 HCV RNA ROSSANA+probe Qn Not detected Normal HCV RNA not detected by PCR. [facility] Comment on above: Order Comment: Speci men Type: BLOOD SPECIMENOrdering Facility: [facility] Address: [address] [place] [address] Performed By: #### 1 6128-1, 24558-4, 4537-7 ####[facility] LABCLIA [id number] [address] HCV RNA ROSSANA+probe Qn Not detected Normal HCV RNA not detected by PCR. [facility] Comment on above: Order Comment: Speci men Type: BLOOD SPECIMENOrdering Facility: [facility] Address: [address] [place] [address] Performed By: #### 1 1011-4 ####[facility] LABCLIA [id number] [place] [address] [place] Magnesium SerPl-mCncon 07-23 Magnesium [Mass/Vol] 1.6 mg/dL Low 1.7-2.3 [facility] Comment on above: Order Comment: Speci men Type: BLOOD SPECIMENOrdering Facility: [facility] Address: [address] [place] [address] Performed By: #### 2 4362-6, 41843-7, 88276-1, 1988- ####[facility] LABCLIA [id number] [place] [address] [place] Magnesium [Mass/Vol] 1.5 mg/dL Low 1.7-2.3 [facility] Comment on above: Order Comment: Speci men Type: BLOOD SPECIMENOrdering Facility: [facility] Address: [address] [place] [address] Performed By: #### 2 4323-8, , 2776-03 ####[facility] LABIA [id number] [place] [address] [place] NURSING PROGon 07-23-2022 NURSING PROG Normal [facility] Phosphate SerPl-mCncon 07-23 Phosphate [Mass/Vol] 2.0 mg/dL Low 2.7-4.8 [facility] Comment on above: Order Comment: Speci men Type: BLOOD SPECIMENOrdering Facility: [facility] Address: [address] [place] [address] Performed By: #### 2 4323-8, , 2776-03 ####[facility] LABIA [id number] [address] [place] Procalcitonin SerPl-mCncon 0 07-23-2022 Procalcitonin [Mass/Vol] 28.74 ng/mL High <0.09 [facility] Comment on above: Order Comment: Speci men Type: BLOOD SPECIMENOrdering Facility: [facility] Address: [address] [place] [address] Result Comment: For a guided interpretation of test results, please visit the Change in Procalcitonin Calculator, [email or web address]. Performed By: #### 2 4362-6, 34553-4, 44656-4, 1987- ####[facility] LABCLIA [id number] [address] [place] [id number] [place] Renal function 2000 panelon 07-23-2022 Albumin [Mass/Vol] 2.8 g/dL Low 3.9-4.9 [facility] Comment on above: Order Comment: Speci men Type: BLOOD SPECIMENOrdering Facility: [facility] Address: [address] [place] [address] Performed By: #### 2 4362-6, 62566-4, , 1987-07 ####[facility] LABCLIA [id number] [address] [id number] [place] Anion gap [Moles/Vol] 9 mmol/L Normal 9-18 [facility] Comment on above: Order Comment: Speci men Type: BLOOD SPECIMENOrdering Facility: [facility] Address: [address] [place] [address] Performed By: #### 2 4362-6, 92270-2, , 1987-07 ####[facility] LABCLIA [id number] [place] [address] [place] Calcium [Mass/Vol] 8.4 mg/dL Low 8.5-10.2 [facility] Comment on above: Order Comment: Speci men Type: BLOOD SPECIMENOrdering Facility: [facility] Address: [address] [place] [address] Performed By: #### 2 4362-6, 88775-5, , 1987-07 ####[facility] LABCLIA [id number] [address] [place] [id number] [place] Chloride [Moles/Vol] 103 mmol/L Normal 97-105 [facility] Comment on above: Order Comment: Speci men Type: BLOOD SPECIMENOrdering Facility: [facility] Address: [address] [place] [address] Performed By: #### 2 4362-6, 48173-7, , 1987-07 ####[facility] LABCLIA [id number] [address] [address] [place] CO2 [Moles/Vol] 23 mmol/L Normal 22-30 [facility] Comment on above: Order Comment: Speci men Type: BLOOD SPECIMENOrdering Facility: [facility] Address: [address] [place], [place] [address] Performed By: #### 2 4362-6, 84431-3, , 1987-07 ####[facility] LABCLIA [id number] [address] [place] Creatinine [Mass/Vol] 0.99 mg/dL Normal 0.73-1.22 [facility] Comment on above: Order Comment: Speci men Type: BLOOD SPECIMENOrdering Facility: [facility] Address: [address] [place] [address] Performed By: #### 2 4362-6, 03764-0, , 1987-07 ####[facility] LABIA [id number] [address] [facility] ESTIMATED GLOMERULAR FILTRATION RATE 83 mL/min/1.73m??? Normal >=60 [facility] Comment on above: Order Comment: Guadalupei men Type: BLOOD SPECIMENOrdering Facility: [facility] Address: [address] [place] [address] Result Comment: Ignacia mated Glomerular Filtration Rate (eGFR) is calculated using the 2020 CKD-EPI creatinine equation. This equation utilizes serum creatinine, sex, and age as parameters. The creatinine assay has traceable calibration to isotope dilution-mass spectrometry. Refer to KDIGO guidelines for clinical interpretation. In patients with unstable renal function, e.g. those with acute kidney injury, the eGFR may not accurately reflect actual GFR. Performed By: #### 2 4362-6, 98302-6, , 1987-07 ####[facility] LABCLIA [id number] [address] [place] [id number] [place] Glucose [Mass/Vol] 159 mg/dL High 74-99 [facility] Comment on above: Order Comment: Speci men Type: BLOOD SPECIMENOrdering Facility: [facility] Address: [address] [place] [phone] Result Comment: The [place] Diabetes Association (ADA) provides guidance for cutoff values for fasting glucose and random glucose. The ADA defines fasting as no caloric intake for at least 8 hours. Fasting plasma glucose results between 100 to 125 mg/dL indicate increased risk for diabetes (prediabetes).Fasting plasma glucose results greater than or equal to 126 mg/dL meet the criteria for diagnosis of diabetes. In the absence of unequivocal hyperglycemia, results should be confirmed by repeat testing. In a patient with classic symptoms of hyperglycemia or hyperglycemic crisis, random plasma glucose results greater than or equal to 200 mg/dL meet the criteria for diagnosis of diabetes.Reference: Standards of Medical Care in Diabetes 2016, [place] Diabetes Association. Diabetes Care. 2016.39(Suppl 1). Performed By: #### 2 4362-6, 35877-1, , 1987-07 ####[facility] LABCLIA [id number] [address] [place] [id number] [place] Phosphate [Mass/Vol] 2.3 mg/dL Low 2.7-4.8 [facility] Comment on above: Order Comment: Speci men Type: BLOOD SPECIMENOrdering Facility: [facility] Address: [address] [place] [phone] Performed By: #### 2 4362-6, 42590-6, , 1987-07 ####[facility] LABCLIA [id number] [address] [place] [id number] [place] Potassium [Moles/Vol] 3.8 mmol/L Normal 3.7-5.1 [facility] Comment on above: Order Comment: Speci men Type: BLOOD SPECIMENOrdering Facility: [facility] Address: [address] [place] [phone] Performed By: #### 2 4362-6, 09786-3, , 1987-07 ####[facility] LABCLIA [id number] [address] [address] [place] Sodium [Moles/Vol] 135 mmol/L Low 136-144 [facility] Comment on above: Order Comment: Speci men Type: BLOOD SPECIMENOrdering Facility: [facility] Address: [address] [place], [place] [address] Performed By: #### 2 4362-6, 87037-3, , 1987-07 ####[facility] LABCLIA [id number] [place] [address] [place] Urea nitrogen [Mass/Vol] 27 mg/dL High 9-24 [facility] Comment on above: Order Comment: Speci men Type: BLOOD SPECIMENOrdering Facility: [facility] Address: [address] [place], [place] [address] Performed By: #### 2 4362-6, 63915-1, , 1987-07 ####[facility] LABCLIA [id number] [place] [address] [place] THERAPY NTon 07-23-2022 THERAPY NT Normal [facility] THERAPY NT Normal [facility] TYPE + SCREENon 07-23-2022 ABO O Normal [facility] Comment on above: Order Comment: Speci men Type: BLOOD SPECIMENOrdering Facility: [facility] Address: [address] [place], [place] [address] Performed By: #### T SCR ####[facility] BLOOD BANKCLIA [id number] [place] [address] [place] HISTORICAL AB SCR STATUS Negative Normal [facility] Comment on above: Order Comment: Speci men Type: BLOOD SPECIMENOrdering Facility: [facility] Address: [address] [place], [place] [address] Performed By: #### T SCR ####[facility] BLOOD BANKCLIA [id number] [place] [address] [place] Rh Nom (Bld) Positive Normal [facility] Comment on above: Order Comment: Speci men Type: BLOOD SPECIMENOrdering Facility: [facility] Address: [address] Performed By: #### T SCR ####[facility] BLOOD BANKCLIA [id number] [address] TYPE AND SCREEN EXPIRATION 07/26/2022 23:59 Normal [facility] Comment on above: Order Comment: Speci men Type: BLOOD SPECIMENOrdering Facility: [facility] Address: [address] Performed By: #### T SCR ####[facility] BLOOD BANKIA [id number] [address] OF [facility] ALLIED HEALTHon 07-22-2022 ALLIED HEALTH Normal [facility] BRIEF OP NOTon 07-22-2022 BRIEF OP NOT Normal [facility] Bacteria Ur Culton 3 Bacteria identified Cx Nom (U) ORGANISM ID: 1 <10,000 CFU/ml Mixed microbiota Insignificant colony count. No further workup. Normal [facility] Comment on above: Performed By: #### 6 30-4 ####[facility] LABCLIA [id number] [address] [place] CBC panel Auto (Bld)on 07-22 Erythrocyte distribution width (RBC) [Ratio] 14.8 % Normal 11.5-15.0 [facility] Comment on above: Order Comment: Speci men Type: BLOOD SPECIMENOrdering Facility: [facility] Address: [address] [place], [place] [address] Performed By: #### 5 8410-2 ####[facility] LABCLIA [id number] [address] [place] Hematocrit (Bld) [Volume fraction] 31.5 % Low 39.0-51.0 [facility] Comment on above: Order Comment: Speci men Type: BLOOD SPECIMENOrdering Facility: [facility] Address: [address] [place], [place] [address] Performed By: #### 5 8410-2 ####[facility] LABIA [id number] [address] STATES OF [facility] Hemoglobin (Bld) [Mass/Vol] 10.6 g/dL Low 13.0-17.0 [facility] Comment on above: Order Comment: Speci men Type: BLOOD SPECIMENOrdering Facility: [facility] Address: [address] [place], [place] [address] Performed By: #### 5 8410-2 ####[facility] [id number] [address] [place] MCH (RBC) [Entitic mass] 27.9 pg Normal 26.0-34.0 [facility] Comment on above: Order Comment: Speci men Type: BLOOD SPECIMENOrdering Facility: [facility] Address: [address] [place], [place] [address] Performed By: #### 5 8410-2 ####[facility] [id number] [address] [place] MCHC (RBC) [Mass/Vol] 33.7 g/dL Normal 30.5-36.0 [facility] Comment on above: Order Comment: Speci men Type: BLOOD SPECIMENOrdering Facility: [facility] Address: [address] [place], [place] [address] Performed By: #### 5 8410-2 ####[facility] [id number] [address] STATES OF [facility] MCV (RBC) [Entitic vol] 82.9 fL Normal 80.0-100.0 [facility] Comment on above: Order Comment: Speci men Type: BLOOD SPECIMENOrdering Facility: [facility] Address: [address] [place], [place] [address] Performed By: #### 5 8410-2 ####[facility] [id number] [place] [address] [place] Nucleated RBC (Bld) [#/Vol] 10*3/uL Normal <0.01 [facility] Comment on above: Order Comment: Speci men Type: BLOOD SPECIMENOrdering Facility: [facility] Address: [address] [place] [address] Performed By: #### 5 8410-2 ####[facility] LABCLIA [id number] [place] [address] [place] Platelet mean volume (Bld) [Entitic vol] 12.5 fL Normal 9.0-12.7 [facility] Comment on above: Order Comment: Speci men Type: BLOOD SPECIMENOrdering Facility: [facility] Address: [address] [place] [address] Performed By: #### 5 8410-2 ####[facility] LABCLIA [id number] [place] [address] [place] Platelets (Bld) [#/Vol] 84 10*3/uL Low 150-400 [facility] Comment on above: Order Comment: Speci men Type: BLOOD SPECIMENOrdering Facility: [facility] Address: [address] [place], [place] [address] Result Comment: No c lot detected. Performed By: #### 5 8410-2 ####[facility] LABCLIA [id number] [place] [address] [place] RBC (Bld) [#/Vol] 3.80 10*6/uL Low 4.20-6.00 [facility] Comment on above: Order Comment: Speci men Type: BLOOD SPECIMENOrdering Facility: [facility] Address: [address] [place], [place] [address] Performed By: #### 5 8410-2 ####[facility] LABCLIA [id number] [place] [address] [place] WBC (Bld) [#/Vol] 19.67 10*3/uL High 3.70-11.00 [facility] Comment on above: Order Comment: Speci men Type: BLOOD SPECIMENOrdering Facility: [facility] Address: [address] [facility] [address] [phone] Performed By: #### 5 8410-2 ####[facility] LABCLIA [id number] [address] [place] [address] [place] CONSULTon 07-22-2022 CONSULT Normal [facility] CULTURE BLOODon 07-22-2022 Microscopic examination of blood, culture Culture Observations: Aerobic bottle positive; BCID= Klebsiella Pneumoniae Culture Observations: BCID called to Diana Chester RN on 07/20 @ 0742 Culture Observations: No growth in anaerobic bottle at 5 days Isolate 1 BC_BA_NA Growth of ORGANISM 1 BC_BA_NA ANTIBIOTIC M.I.C RX STATUS Ampicillin 16 R F Ampicillin/Sulbactam 4 S F Piperacillin/Tazobac alas <=4 S F Cefazolin <=4 S F Ceftazidime <=1 S F Ceftriaxone <=1 S F Ertapenem <=0.5 S F Imipenem <=0.25 S F Amikacin <=2 S F Gentamicin <=1 S F Tobramycin <=1 S F Ciprofloxacin <=0.25 S F Levofloxacin <=0.12 S F Trimethoprim/Sulfame thoxazole <=20 S F Normal [facility] Comment on above: Performed By: #### C BC #### [facility] [address] [place] [address] Dr. Cuba Weber CULTURE URINEon 07-22-2022 CULTURE URINE Isolate 1 Klebsiella pneumoniae >100,000 cfu/mL of ORGANISM 1 Klebsiella pneumoniae ANTIBIOTIC M.I.C RX STATUS Ampicillin >=32 R F Ampicillin/Sulbactam >=32 R F Piperacillin/Tazobac alas <=4 S F Cefazolin >=64 R F Ceftazidime 4 R F Ceftriaxone 32 R F Ertapenem <=0.5 S F Imipenem <=0.25 S F Amikacin <=2 S F Gentamicin <=1 S F Tobramycin <=1 S F Ciprofloxacin 0.5 S F Levofloxacin 1 S F Nitrofurantoin 64 I F Trimethoprim/Sulfame thoxazole >=320 R F Normal [facility] Comment on above: Performed By: #### C BC #### [facility] [address] [address] [address] Cuba Weber Comp Metab 2000 Pnl SerPlon 07-22-2022 Glucose [Mass/Vol] 132 mg/dL High 60-105 [facility] Comment on above: Order Comment: Speci men Type: BLOOD SPECIMENOrdering Facility: [facility] Address: [address] [address] Result Comment: The [place] Diabetes Association (ADA) provides guidance for cutoff values for fasting glucose and random glucose. The ADA defines fasting as no caloric intake for at least 8 hours. Fasting plasma glucose results between 100 to 125 mg/dL indicate increased risk for diabetes (prediabetes).Fasting plasma glucose results greater than or equal to 126 mg/dL meet the criteria for diagnosis of diabetes. In the absence of unequivocal hyperglycemia, results should be confirmed by repeat testing. In a patient with classic symptoms of hyperglycemia or hyperglycemic crisis, random plasma glucose results greater than or equal to 200 mg/dL meet the criteria for diagnosis of diabetes.Reference: Standards of Medical Care in Diabetes 2016, [place] Diabetes Association. Diabetes Care. 2016.39(Suppl 1). Performed By: #### 2 4323-8, 86827-0, 2777-1 ####[facility] LABCLIA [id number] [place] [address] [place] Order Comment: Speci men Type: VENOUS BLOOD SPECIMENOrdering Facility: [facility] Address: [address] [address] Performed By: #### 2 4344-4 ####[facility] LABCLIA [id number] [place] [address] [place] Comprehensive metabolic 2000 panelon 07-22-2022 Albumin [Mass/Vol] 2.7 g/dL Low 3.9-4.9 [facility] Comment on above: Order Comment: Speci men Type: BLOOD SPECIMENOrdering Facility: [facility] Address: [address] [address] Performed By: #### 2 4323-8, 85465-7, 2776- ####[facility] LABCLIA [id number] [place] [address] [place] ALP [Catalytic activity/Vol] 74 U/L Normal 38-113 [facility] Comment on above: Order Comment: Speci men Type: BLOOD SPECIMENOrdering Facility: [facility] Address: [address] [place] [address] Performed By: #### 2 4323-8, , 2776- ####[facility] LABCLIA [id number] [address] [place] ALT [Catalytic activity/Vol] 27 U/L Normal 10-54 [facility] [facility] Comment on above: Order Comment: Speci men Type: BLOOD SPECIMENOrdering Facility: [facility] Address: [address] [place] [address] Performed By: #### 2 4323-8, , 2776-03 ####[facility] LABCLIA [id number] [place] [address] [place] Anion gap [Moles/Vol] 8 mmol/L Low 9-18 [facility] Comment on above: Order Comment: Speci men Type: BLOOD SPECIMENOrdering Facility: [facility] Address: [address] [place] [address] Performed By: #### 2 4323-8, , 2776-03 ####[facility] LABCLIA [id number] [place] [address] [place] AST [Catalytic activity/Vol] 29 U/L Normal 14-40 [facility] Comment on above: Order Comment: Speci men Type: BLOOD SPECIMENOrdering Facility: [facility] Address: [address] [place] [address] Result Comment: Resu lts may be falsely increased due to interference from hemolysis. Suggest reorder as clinically indicated. Performed By: #### 2 4323-8, , 2776-03 ####[facility] LABCLIA [id number] [place] [address] [place] Bilirubin [Mass/Vol] 0.8 mg/dL Normal 0.2-1.3 [facility] Comment on above: Order Comment: Speci men Type: BLOOD SPECIMENOrdering Facility: [facility] Address: [address] Performed By: #### 2 4323-8, , 2776-03 ####[facility] LABCLIA [id number] [place] [address] [place] Calcium [Mass/Vol] 8.6 mg/dL Normal 8.5-10.2 [facility] Comment on above: Order Comment: Speci men Type: BLOOD SPECIMENOrdering Facility: [facility] Address: [address] [place] [address] Performed By: #### 2 432-8, , 2776-03 ####[facility] LABIA [id number] [place] [address] [place] Chloride [Moles/Vol] 106 mmol/L High 97-105 [facility] Comment on above: Order Comment: Speci men Type: BLOOD SPECIMENOrdering Facility: [facility] Address: [address] Performed By: #### 2 4323-8, , 2776-03 ####[facility] LABCLIA [id number] [place] [address] [place] CO2 [Moles/Vol] 21 mmol/L Low 22-30 [facility] Comment on above: Order Comment: Speci men Type: BLOOD SPECIMENOrdering Facility: [facility] Address: [address] Performed By: #### 2 4323-, , 2776-03 ####[facility] LABCLIA [id number] [place] [address] [place] Creatinine [Mass/Vol] 1.15 mg/dL Normal 0.73-1.22 [facility] Comment on above: Order Comment: Speci men Type: BLOOD SPECIMENOrdering Facility: [facility] Address: [address] [place] [address] Performed By: #### 2 4322-8, , 2776-03 ####[facility] LABCLIA [id number] [place] [address] [place] ESTIMATED GLOMERULAR FILTRATION RATE 70 mL/min/1.73m??? Normal >=60 [facility] Comment on above: Order Comment: Speci men Type: BLOOD SPECIMENOrdering Facility: [facility] Address: [address] [place] [address] Result Comment: Ignacia mated Glomerular Filtration Rate (eGFR) is calculated using the 2020 CKD-EPI creatinine equation. This equation utilizes serum creatinine, sex, and age as parameters. The creatinine assay has traceable calibration to isotope dilution-mass spectrometry. Refer to KDIGO guidelines for clinical interpretation. In patients with unstable renal function, e.g. those with acute kidney injury, the eGFR may not accurately reflect actual GFR. Performed By: #### 2 8, , 2776-03 ####[facility] LABIA [id number] [place] [address] [place] Potassium [Moles/Vol] 4.5 mmol/L Normal 3.7-5.1 [facility] Comment on above: Order Comment: Speci men Type: BLOOD SPECIMENOrdering Facility: [facility] Address: [address] [place] [address] Performed By: #### 2 432-8, , 2776-03 ####[facility] LABCLIA [id number] [place] [address] [place] Protein [Mass/Vol] 6.0 g/dL Low 6.3-8.0 [facility] Comment on above: Order Comment: Speci men Type: BLOOD SPECIMENOrdering Facility: [facility] Address: [address] [place] [address] Performed By: #### 2 4323-8, 48472-4, 2776-1 ####[facility] LABCLIA [id number] [place] [address] [place] Sodium [Moles/Vol] 135 mmol/L Low 136-144 [facility] Comment on above: Order Comment: Speci men Type: BLOOD SPECIMENOrdering Facility: [facility] Address: [address] [place] [address] Performed By: #### 2 4323-8, , 2776- ####[facility] LABIA [id number] [place] [address] [place] Urea nitrogen [Mass/Vol] 31 mg/dL High 9-24 [facility] Comment on above: Order Comment: Speci men Type: BLOOD SPECIMENOrdering Facility: [facility] Address: [address] [place] [address] Performed By: #### 2 4323-8, , 2776- ####[facility] LABIA [id number] [place] [address] [place] Gas and Carbon monoxide pane l (BldV)on 07-22-2022 BASE DEFICIT, VENOUS -1 mmol/L Normal -2-0 [facility] Comment on above: Order Comment: Speci men Type: VENOUS BLOOD SPECIMENOrdering Facility: [facility] Address: [address] [place] [address] Performed By: #### 2 4344-4 ####[facility] LABCLIA [id number] [place] [address] [place] Body temperature 98.6 [degF] Normal [facility] Comment on above: Order Comment: Speci men Type: VENOUS BLOOD SPECIMENOrdering Facility: [facility] Address: [address] Performed By: #### 2 4344-4 ####[facility] LABCLIA [id number] [place] [address] [place] Calcium.ionized (Bld) [Mass/Vol] 1.20 mmol/L Normal 1.08-1.30 [facility] Comment on above: Order Comment: Speci men Type: VENOUS BLOOD SPECIMENOrdering Facility: [facility] Address: [address] Performed By: #### 2 4344-4 ####[facility] LABIA [id number] [place] [address] [place] Calcium.ionized adjusted to pH 7.4 (BldA) [Moles/Vol] 1.23 mmol/L Normal 1.08-1.30 [facility] Comment on above: Order Comment: Speci men Type: VENOUS BLOOD SPECIMENOrdering Facility: [facility] Address: [address] [address] Performed By: #### 2 4344-4 ####[facility] LABIA [id number] [place] [address] [place] Carboxyhemoglobin (BldV) [Mass fraction] 1.3 % Normal 0.0-2.0 [facility] Comment on above: Order Comment: Speci men Type: VENOUS BLOOD SPECIMENOrdering Facility: [facility] Address: [address] Result Comment: Carb oxyhemoglobin Reference Range for Smokers: 2.0-8.0% Performed By: #### 2 4344-4 ####[facility] LABIA [id number] [place] [address] [place] CO2 (BldV) [Partial pressure] 34 mm[Hg] Low 42-55 [facility] Comment on above: Order Comment: Speci men Type: VENOUS BLOOD SPECIMENOrdering Facility: [facility] Address: [address] Performed By: #### 2 4344-4 ####[facility] LABCLIA [id number] [place] [address] [place] CO2 [Moles/Vol] 24 mmol/L Low 25-29 [facility] Comment on above: Order Comment: Speci men Type: VENOUS BLOOD SPECIMENOrdering Facility: [facility] Address: [address] Performed By: #### 2 4344-4 ####[facility] LABCLIA [id number] [place] [address] [place] HCO3 (Bld) [Moles/Vol] 23 mmol/L Low 24-28 [facility] Comment on above: Order Comment: Speci men Type: VENOUS BLOOD SPECIMENOrdering Facility: [facility] Address: [address] Performed By: #### 2 4344-4 ####[facility] LABCLIA [id number] [place] [address] [place] Hematocrit (Bld) [Volume fraction] 34.1 % Low 39.0-51.0 [facility] Comment on above: Order Comment: Speci men Type: VENOUS BLOOD SPECIMENOrdering Facility: [facility] Address: [address] Performed By: #### 2 4344-4 ####[facility] LABCLIA [id number] [place] [address] [place] Hemoglobin (Bld) [Mass/Vol] 11.0 g/dL Low 13.0-17.0 [facility] Comment on above: Order Comment: Speci men Type: VENOUS BLOOD SPECIMENOrdering Facility: [facility] Address: [address] Performed By: #### 2 4344-4 ####[facility] LABCLIA [id number] [place] [address] [place] Lactate [Moles/Vol] 1.3 mmol/L Normal 0.5-2.2 [facility] Comment on above: Order Comment: Speci men Type: VENOUS BLOOD SPECIMENOrdering Facility: [facility] Address: [address] Performed By: #### 2 4344-4 ####[facility] LABCLIA [id number] [place] [address] [place] Methemoglobin (Bld) [Mass fraction] 1.1 % Normal 0.0-1.5 [facility] Comment on above: Order Comment: Speci men Type: VENOUS BLOOD SPECIMENOrdering Facility: [facility] Address: [address] [place], [place] [address] Performed By: #### 2 4344-4 ####[facility] LABIA [id number] [place] [address] [place] [facility] O2 THERAPY RA=Room Air Normal [facility] Comment on above: Order Comment: Speci men Type: VENOUS BLOOD SPECIMENOrdering Facility: [facility] Address: [address] Performed By: #### 2 4344-4 ####[facility] LABCLIA [id number] [place] [address] [place] Oxygen (BldV) [Partial pressure] 90 mm[Hg] High 35-45 [facility] Comment on above: Order Comment: Speci men Type: VENOUS BLOOD SPECIMENOrdering Facility: [facility] Address: [address] Performed By: #### 2 4344-4 ####[facility] LABCLIA [id number] [place] [address] [place] Oxygen saturation in Venous blood 97 % High 60-85 [facility] Comment on above: Order Comment: Speci men Type: VENOUS BLOOD SPECIMENOrdering Facility: [facility] Address: [address] [place] [address] Performed By: #### 2 4344-4 ####[facility] LABCLIA [id number] [address] [address] [place] Oxyhemoglobin (BldV) [Mass fraction] 95 % High 60-85 [facility] Comment on above: Order Comment: Speci men Type: VENOUS BLOOD SPECIMENOrdering Facility: [facility] Address: [address] Performed By: #### 2 4344-4 ####[facility] LABCLIA [id number] [place] [address] [place] pH (BldV) 7.44 [pH] High 7.32-7.42 [facility] Comment on above: Order Comment: Speci men Type: VENOUS BLOOD SPECIMENOrdering Facility: [facility] Address: [address] Performed By: #### 2 4344-4 ####[facility] LABIA [id number] [place] [address] [place] Potassium [Moles/Vol] 4.1 mmol/L Normal 3.5-5.0 [facility] Comment on above: Order Comment: Speci men Type: VENOUS BLOOD SPECIMENOrdering Facility: [facility] Address: [address] [place] [address] Performed By: #### 2 4344-4 ####[facility] LABIA [id number] [place] [address] [place] Sodium [Moles/Vol] 137 mmol/L Normal 136-144 [facility] Comment on above: Order Comment: Speci men Type: VENOUS BLOOD SPECIMENOrdering Facility: [facility] Address: [address] [place] [address] Performed By: #### 2 4344-4 ####[facility] LABCLIA [id number] [place] [address] [place] IR NEPHROSTOMY TUBE PLACEon 07-22-[address] Normal [facility] Magnesium SerPl-mCncon 07-22 Magnesium [Mass/Vol] 2.0 mg/dL Normal 1.7-2.3 [facility] Comment on above: Order Comment: Speci men Type: BLOOD SPECIMENOrdering Facility: [facility] Address: [address] Performed By: #### 2 4323-8, , 2776-03 ####[facility] LABCLIA [id number] [place] [address] [place] NURSING PROGon 07-22-2022 NURSING PROG Normal [facility] NURSING PROG Normal [facility] NUTRITIONon 07-22-2022 NUTRITION Normal [facility] PT EDon 07-22-2022 PT ED Normal [facility] Phosphate SerPl-mCncon 07-22 Phosphate [Mass/Vol] 1.8 mg/dL Low 2.7-4.8 [facility] Comment on above: Order Comment: Speci men Type: BLOOD SPECIMENOrdering Facility: [facility] Address: [address] [place] [address] Performed By: #### 2 4323-8, , 27709-25 ####[facility] LABCLIA [id number] [address] [address] [place] THERAPY NTon 07-22-2022 THERAPY NT Normal [facility] THERAPY NT Normal [facility] Bacteria Bld Culton 07-22-19 23 Bacteria identified Cx Nom (Bld) CULTURE, BLOOD: No growth 5 days Normal [facility] Comment on above: Performed By: #### 6 00-7 ####[facility] LABCLIA [id number] [place] [id number] [place] CBC AUTO DIFFon 07-21-2022 BASO # 0.1 103/ul Normal 0.0-0.1 [facility] Comment on above: Performed By: #### C BC #### [facility] [address] [place] [address] Dr. Cuba Weber Basophils/100 WBC (Bld) 0.3 % Normal 0.2-2.0 [facility] Comment on above: Performed By: #### C BC #### [facility] [address] [place] [address] Dr. Cuba Weber EO # 0.3 103/ul Normal 0.0-0.7 [facility] Comment on above: Performed By: #### C BC #### [facility] [address] [place] [address] Dr. Cuba Weber Eosinophils/100 WBC (Bld) 1.4 % Normal 0.9-7.0 [facility] Comment on above: Performed By: #### C BC #### [facility] [address] [place] [address] Dr. Cuba Weber Erythrocyte distribution width (RBC) [Ratio] 14.9 % Normal 11.0-15.0 [facility] Comment on above: Performed By: #### C BC #### [facility] [address] [place] [address] Dr. Cuba Weber Hematocrit (Bld) [Volume fraction] 30.0 % Critically low 42.0-54.0 [facility] Comment on above: Performed By: #### C BC #### [facility] [address] [place] [address] Dr. Cuba Weber Hemoglobin (Bld) [Mass/Vol] 10.1 g/dL Critically low 14.0-18.0 [facility] Comment on above: Performed By: #### C BC #### [facility] [address] [place] [address] Dr. Cuba Weber IG # 2.09 10e3/ul Critically high 0.00-0.03 [facility] Comment on above: Performed By: #### C BC #### [facility] [address] [place] [address] Dr. Cuba Weber IG % 11.5 % Critically high 0.0-0.5 [facility] Comment on above: Performed By: #### C BC #### [facility] [address] [place] [address] Dr. Cuba Weber LYMPH # 0.4 103/ul Critically low 1.2-3.8 [facility] Comment on above: Performed By: #### C BC #### [facility] [address] [place] [address] Dr. Cuba Weber Lymphocytes/100 WBC (Bld) 2.1 % Critically low 20.5-60.0 [facility] Comment on above: Performed By: #### C BC #### [facility] [address] [place] [address] Dr. Cuba Weber MANUAL DIFF REQ NO Normal [facility] Comment on above: Performed By: #### C BC #### [facility] [address] [place] [address] Dr. Cuba Weber MCH (RBC) [Entitic mass] 28.5 pg Normal 25.9-34.0 [facility] Comment on above: Performed By: #### C BC #### [facility] [address] [place] [address] Dr. Cuba Weber MCHC (RBC) [Mass/Vol] 33.7 g/dL Normal 29.9-35.2 [facility] Comment on above: Performed By: #### C BC #### [facility] [address] [place] [address] Dr. Cuba Weber MCV (RBC) [Entitic vol] 84.5 fL Normal 80.0-94.0 [facility] Comment on above: Performed By: #### C BC #### [facility] [address] [place] [address] Dr. Cuba Weber MONO # 0.5 103/ul Normal 0.3-0.8 [facility] Comment on above: Performed By: #### C BC #### [facility] [address] [address] [address] Cuba Weber Monocytes/100 WBC (Bld) 2.9 % Normal 1.7-12.0 [facility] Comment on above: Performed By: #### C BC #### [facility] [address] [address] [address] Cuba Weber NEUT # 14.9 103/ul Critically high 1.4-6.5 [facility] Comment on above: Performed By: #### C BC #### [facility] [address] [address] [address] Cuba Weber Neutrophils/100 WBC (Bld) 81.8 % Critically high 43.0-75.0 [facility] Comment on above: Performed By: #### C BC #### [facility] [address] [place] [address] Dr. Cuba Weber Platelet mean volume (Bld) [Entitic vol] 11.8 fL Normal 9.5-13.5 [facility] Comment on above: Performed By: #### C BC #### [facility] [address] [address] [address] Cuba Weber PLT 74 103/ul Critically low 150-450 [facility] Comment on above: Performed By: #### C BC #### [facility] [address] [address] [address] Cuba Weber RBC 3.55 106/ul Critically low 4.70-6.10 [facility] Comment on above: Performed By: #### C BC #### [facility] [address] [address] [address] Cuba Weber WBC 18.2 103/ul Critically high 4.0-11.0 [facility] Comment on above: Performed By: #### C BC #### [facility] [address] [place] [address] Dr. Cuba Weber CBC W Auto Differential pane l (Bld)on 07-21-2022 Basophils (Bld) [#/Vol] 0.00 10*3/uL Normal <0.11 [facility] Comment on above: Order Comment: Speci men Type: BLOOD SPECIMENOrdering Facility: [facility] Address: [address] [address] Performed By: #### 5 7021-8 ####[facility] LABCLIA [id number] [address] [place] Basophils/100 WBC (Bld) 0.0 % Normal [facility] Comment on above: Order Comment: Speci men Type: BLOOD SPECIMENOrdering Facility: [facility] Address: [address] [address] Performed By: #### 5 7021-8 ####[facility] LABCLIA [id number] [address] [place] Differential cell count method Nom (Bld) Manual Normal [facility] Comment on above: Order Comment: Speci men Type: BLOOD SPECIMENOrdering Facility: [facility] Address: [address] [place] [address] Performed By: #### 5 7021-8 ####[facility] LABCLIA [id number] [place] [address] [place] Eosinophils (Bld) [#/Vol] 0.00 10*3/uL Normal <0.46 [facility] Comment on above: Order Comment: Speci men Type: BLOOD SPECIMENOrdering Facility: [facility] Address: [address] Performed By: #### 5 7021-8 ####[facility] LABCLIA [id number] [address] [place] Eosinophils/100 WBC (Bld) 0.0 % Normal [facility] Comment on above: Order Comment: Speci men Type: BLOOD SPECIMENOrdering Facility: [facility] Address: [address] [place], [place] [address] Performed By: #### 5 7021-8 ####[facility] LABCLIA [id number] [place] [address] [place] Erythrocyte distribution width (RBC) [Ratio] 14.6 % Normal 11.5-15.0 [facility] Comment on above: Order Comment: Speci men Type: BLOOD SPECIMENOrdering Facility: [facility] Address: [address] [place] [address] Performed By: #### 5 7021-8 ####[facility] LABIA [id number] [place] [address] [place] Hematocrit (Bld) [Volume fraction] 29.5 % Low 39.0-51.0 [facility] Comment on above: Order Comment: Speci men Type: BLOOD SPECIMENOrdering Facility: [facility] Address: [address] [place] [address] Performed By: #### 5 7021-8 ####[facility] LABIA [id number] [place] [address] [place] Hemoglobin (Bld) [Mass/Vol] 10.3 g/dL Low 13.0-17.0 [facility] Comment on above: Order Comment: Speci men Type: BLOOD SPECIMENOrdering Facility: [facility] Address: [address] [place] [address] Performed By: #### 5 7021-8 ####[facility] LABIA [id number] [place] [address] [place] Lymphocytes (Bld) [#/Vol] 0.15 10*3/uL Low 1.00-4.00 [facility] Comment on above: Order Comment: Speci men Type: BLOOD SPECIMENOrdering Facility: [facility] Address: [address] [place], [place] [address] Performed By: #### 5 7021-8 ####[facility] LABCLIA [id number] [place] [address] [place] Lymphocytes/100 WBC (Bld) 1.0 % Normal [facility] Comment on above: Order Comment: Speci men Type: BLOOD SPECIMENOrdering Facility: [facility] Address: [address] Performed By: #### 5 7021-8 ####[facility] LABIA [id number] [address] [place] MCH (RBC) [Entitic mass] 28.5 pg Normal 26.0-34.0 [facility] Comment on above: Order Comment: Speci men Type: BLOOD SPECIMENOrdering Facility: [facility] Address: [address] Performed By: #### 5 7021-8 ####[facility] LABIA [id number] [address] [place] MCHC (RBC) [Mass/Vol] 34.9 g/dL Normal 30.5-36.0 [facility] Comment on above: Order Comment: Speci men Type: BLOOD SPECIMENOrdering Facility: [facility] Address: [address] Performed By: #### 5 7021-8 ####[facility] LABIA [id number] [address] [place] MCV (RBC) [Entitic vol] 81.7 fL Normal 80.0-100.0 C [facility] Comment on above: Order Comment: Speci men Type: BLOOD SPECIMENOrdering Facility: [facility] Address: [address] Performed By: #### 5 7021-8 ####[facility] LABIA [id number] [place] [address] [place] Monocytes (Bld) [#/Vol] 0.00 10*3/uL Normal <0.87 [facility] Comment on above: Order Comment: Speci men Type: BLOOD SPECIMENOrdering Facility: [facility] Address: [address] Performed By: #### 5 7021-8 ####[facility] LABCLIA [id number] [place] [address] [place] Monocytes/100 WBC (Bld) 0.0 % Normal [facility] Comment on above: Order Comment: Speci men Type: BLOOD SPECIMENOrdering Facility: [facility] Address: [address] [place], [place] [address] Performed By: #### 5 7021-8 ####[facility] LABCLIA [id number] [place] [address] [place] Neutrophils (Bld) [#/Vol] 15.26 10*3/uL High 1.45-7.50 [facility] Comment on above: Order Comment: Speci men Type: BLOOD SPECIMENOrdering Facility: [facility] Address: [address] [place], [place] [address] Performed By: #### 5 7021-8 ####[facility] LABCLIA [id number] [place] [address] [place] Neutrophils/100 WBC (Bld) 99.0 % Normal [facility] Comment on above: Order Comment: Speci men Type: BLOOD SPECIMENOrdering Facility: [facility] Address: [address] [place], [place] [address] Performed By: #### 5 7021-8 ####[facility] LABCLIA [id number] [place] [address] [place] Nucleated RBC (Bld) [#/Vol] 10*3/uL Normal <0.01 [facility] Comment on above: Order Comment: Speci men Type: BLOOD SPECIMENOrdering Facility: [facility] Address: [address] [place], [place] [address] Performed By: #### 5 7021-8 ####[facility] LABCLIA [id number] [place] [address] [place] Nucleated RBC/100 WBC (Bld) [Ratio] 0.0 /100 WBC Normal [facility] Comment on above: Order Comment: Speci men Type: BLOOD SPECIMENOrdering Facility: [facility] Address: [address] [place] [address] Performed By: #### 5 7021-8 ####[facility] LABIA [id number] [place] [address] [place] Ovalocytes LM Ql (Bld) Few Normal [facility] Comment on above: Order Comment: Speci men Type: BLOOD SPECIMENOrdering Facility: [facility] Address: [address] [place] [address] Performed By: #### 5 7021-8 ####[facility] LABIA [id number] [place] [address] [place] Platelet mean volume (Bld) [Entitic vol] 12.0 fL Normal 9.0-12.7 [facility] Comment on above: Order Comment: Speci men Type: BLOOD SPECIMENOrdering Facility: [facility] Address: [address] [place] [address] Performed By: #### 5 7021-8 ####[facility] LABIA [id number] [place] [address] [place] Platelets (Bld) [#/Vol] 75 10*3/uL Low 150-400 C [facility] Comment on above: Order Comment: Speci men Type: BLOOD SPECIMENOrdering Facility: [facility] Address: [address] [place] [address] Result Comment: Resu lts checked and verified.No clot detected. Performed By: #### 5 7021-8 ####[facility] LABIA [id number] [place] [address] [place] Platelets Estimate (Bld) [#/Vol] Decreased Normal [facility] Comment on above: Order Comment: Speci men Type: BLOOD SPECIMENOrdering Facility: [facility] Address: [address] Performed By: #### 5 7021-8 ####[facility] LABCLIA [id number] [place] [address] [place] [facility] Polychromasia LM Ql (Bld) Slight Normal [facility] Comment on above: Order Comment: Speci men Type: BLOOD SPECIMENOrdering Facility: [facility] Address: [address] [place], [place] [address] Performed By: #### 5 7021-8 ####[facility] LABCLIA [id number] [address] OF [facility] RBC (Bld) [#/Vol] 3.61 10*6/uL Low 4.20-6.00 [facility] Comment on above: Order Comment: Speci men Type: BLOOD SPECIMENOrdering Facility: [facility] Address: [address] [place], [place] [address] Performed By: #### 5 7021-8 ####[facility] LABCLIA [id number] [place] [address] [place] RBC FRAGMENTS Few Abnormal None Seen [facility] Comment on above: Order Comment: Speci men Type: BLOOD SPECIMENOrdering Facility: [facility] Address: [address] [place], [place] [address] Performed By: #### 5 7021-8 ####[facility] LABCLIA [id number] [place] [address] [place] RED CELL MORPH Reviewed: see results of individual morphologies Normal [facility] Comment on above: Order Comment: Speci men Type: BLOOD SPECIMENOrdering Facility: [facility] Address: [address] [place] [address] Performed By: #### 5 7021-8 ####[facility] LABCLIA [id number] [address] [place] WBC (Bld) [#/Vol] 15.41 10*3/uL High 3.70-11.00 [facility] Comment on above: Order Comment: Speci men Type: BLOOD SPECIMENOrdering Facility: [facility] Address: [address] [place] [address] Performed By: #### 5 7021-8 ####[facility] LABCLIA [id number] [place] [address] [place] CONSULTon 07-21-2022 CONSULT Normal [facility] CONSULT PROGon 07-21-2022 CONSULT PROG Normal [facility] CONSULT PROG Normal [facility] Comprehensive metabolic 2000 panelon 07-21-2022 Albumin [Mass/Vol] 2.8 g/dL Low 3.9-4.9 [facility] Comment on above: Order Comment: Speci men Type: BLOOD SPECIMENOrdering Facility: [facility] Address: [address] [place], [place] [address] Performed By: #### 2 4323-8, 2777-1 ####[facility] LABCLIA [id number] [place] [address] [place] ALP [Catalytic activity/Vol] 72 U/L Normal 38-113 [facility] Comment on above: Order Comment: Speci men Type: BLOOD SPECIMENOrdering Facility: [facility] Address: [address] [place], [place] [address] Performed By: #### 2 4323-8, 2777- ####[facility] LABCLIA [id number] [place] [address] [place] ALT [Catalytic activity/Vol] 32 U/L Normal 10-54 [facility] Comment on above: Order Comment: Speci men Type: BLOOD SPECIMENOrdering Facility: [facility] Address: [address] [place], [place] [address] Performed By: #### 2 4323-8, 2777-1 ####[facility] LABCLIA [id number] [place] [address] [place] Anion gap [Moles/Vol] 10 mmol/L Normal 9-18 [facility] Comment on above: Order Comment: Speci men Type: BLOOD SPECIMENOrdering Facility: [facility] Address: [address] [place] [address] Performed By: #### 2 4323-8, 2777- ####[facility] LABCLIA [id number] [place] [address] [place] AST [Catalytic activity/Vol] 36 U/L Normal 14-40 [facility] Comment on above: Order Comment: Speci men Type: BLOOD SPECIMENOrdering Facility: [facility] Address: [address] [place] [address] Performed By: #### 2 4323-8, 277- ####[facility] LABCLIA [id number] [place] [address] [place] Bilirubin [Mass/Vol] 0.7 mg/dL Normal 0.2-1.3 [facility] Comment on above: Order Comment: Speci men Type: BLOOD SPECIMENOrdering Facility: [facility] Address: [address] [place], [place] [address] Performed By: #### 2 4323-8, 277- ####[facility] LABCLIA [id number] [place] [address] [place] Calcium [Mass/Vol] 8.4 mg/dL Low 8.5-10.2 [facility] Comment on above: Order Comment: Speci men Type: BLOOD SPECIMENOrdering Facility: [facility] Address: [address] [place], [place] [address] Performed By: #### 2 4323-8, 2777- ####[facility] LABCLIA [id number] [place] [address] [place] Chloride [Moles/Vol] 104 mmol/L Normal 97-105 [facility] Comment on above: Order Comment: Speci men Type: BLOOD SPECIMENOrdering Facility: [facility] Address: [address] [address] Performed By: #### 2 4323-8, 2776-03 ####[facility] LABCLIA [id number] [place] [address] [place] CO2 [Moles/Vol] 21 mmol/L Low 22-30 [facility] Comment on above: Order Comment: Speci men Type: BLOOD SPECIMENOrdering Facility: [facility] Address: [address] [address] Performed By: #### 2 4323-8, 2776-03 ####[facility] LABCLIA [id number] [address] STATES OF [facility] Creatinine [Mass/Vol] 1.42 mg/dL High 0.73-1.22 [facility] Comment on above: Order Comment: Speci men Type: BLOOD SPECIMENOrdering Facility: [facility] Address: [address] [address] Performed By: #### 2 4323-8, 2776-03 ####[facility] LABCLIA [id number] [address] [place] ESTIMATED GLOMERULAR FILTRATION RATE 54 mL/min/1.73m??? Low >=60 [facility] Comment on above: Order Comment: Speci men Type: BLOOD SPECIMENOrdering Facility: [facility] Address: [address] [address] Result Comment: Ignacia mated Glomerular Filtration Rate (eGFR) is calculated using the 2020 CKD-EPI creatinine equation. This equation utilizes serum creatinine, sex, and age as parameters. The creatinine assay has traceable calibration to isotope dilution-mass spectrometry. Refer to KDIGO guidelines for clinical interpretation. In patients with unstable renal function, e.g. those with acute kidney injury, the eGFR may not accurately reflect actual GFR. Performed By: #### 2 4323-8, 27709-25 ####[facility] LABCLIA [id number] [place] [address] [place] Glucose [Mass/Vol] 146 mg/dL High 74-99 [facility] Comment on above: Order Comment: Speci men Type: BLOOD SPECIMENOrdering Facility: [facility] Address: [address] [place] [address] Result Comment: The [place] Diabetes Association (ADA) provides guidance for cutoff values for fasting glucose and random glucose. The ADA defines fasting as no caloric intake for at least 8 hours. Fasting plasma glucose results between 100 to 125 mg/dL indicate increased risk for diabetes (prediabetes).Fasting plasma glucose results greater than or equal to 126 mg/dL meet the criteria for diagnosis of diabetes. In the absence of unequivocal hyperglycemia, results should be confirmed by repeat testing. In a patient with classic symptoms of hyperglycemia or hyperglycemic crisis, random plasma glucose results greater than or equal to 200 mg/dL meet the criteria for diagnosis of diabetes.Reference: Standards of Medical Care in Diabetes 2016, [place] [employer] Association. Diabetes Care. 2016.39(Suppl 1). Performed By: #### 2 4323-8, 277- ####[facility] LABCLIA [id number] [place] [address] [place] Potassium [Moles/Vol] 4.2 mmol/L Normal 3.7-5.1 [facility] Comment on above: Order Comment: Speci men Type: BLOOD SPECIMENOrdering Facility: [facility] Address: [address] [place], [place] [address] Performed By: #### 2 4323-8, 277- ####[facility] LABIA [id number] [place] [address] [place] Protein [Mass/Vol] 6.0 g/dL Low 6.3-8.0 [facility] Comment on above: Order Comment: Speci men Type: BLOOD SPECIMENOrdering Facility: [facility] Address: [address] [place] [address] Performed By: #### 2 4323-8, 2776-03 ####[facility] LABCLIA [id number] [place] [address] [place] Sodium [Moles/Vol] 135 mmol/L Low 136-144 [facility] Comment on above: Order Comment: Speci men Type: BLOOD SPECIMENOrdering Facility: [facility] Address: [address] [place] [address] Performed By: #### 2 4323-8, 2776-03 ####[facility] LABCLIA [id number] [place] [address] [place] Urea nitrogen [Mass/Vol] 30 mg/dL High 9-24 [facility] Comment on above: Order Comment: Speci men Type: BLOOD SPECIMENOrdering Facility: [facility] Address: [address] [place] [address] Performed By: #### 2 4323-8, 2776-03 ####[facility] LABCLIA [id number] [place] [address] [place] Albumin [Mass/Vol] 2.6 g/dL Low 3.9-4.9 [facility] Comment on above: Order Comment: Speci men Type: BLOOD SPECIMENOrdering Facility: [facility] Address: [address] [place] [address] Performed By: #### 1 9123-9, 27709-25, 94347-5 ####[facility] LABCLIA [id number] [place] [address] [place] ALP [Catalytic activity/Vol] 89 U/L Normal 38-113 [facility] Comment on above: Order Comment: Speci men Type: BLOOD SPECIMENOrdering Facility: [facility] Address: [address] [place], [place] [address] Performed By: #### 1 9123-9, 277-1, 20124-3 ####[facility] LABCLIA [id number] [place] [address] [place] [facility] ALT [Catalytic activity/Vol] 35 U/L Normal 10-54 [facility] Comment on above: Order Comment: Speci men Type: BLOOD SPECIMENOrdering Facility: [facility] Address: [address] [place] [address] Result Comment: Resu lts may be falsely increased due to interference from hemolysis. Suggest reorder as clinically indicated. Performed By: #### 1 9123-9, 2777-, 52081-5 ####[facility] LABCLIA [id number] [address] [place] Anion gap [Moles/Vol] 12 mmol/L Normal 9-18 [facility] Comment on above: Order Comment: Speci men Type: BLOOD SPECIMENOrdering Facility: [facility] Address: [address] [place] [address] Performed By: #### 1 9123-9, 27709-25, 10816-8 ####[facility] LABIA [id number] [address] [place] [facility] AST [Catalytic activity/Vol] 52 U/L High 14-40 [facility] Comment on above: Order Comment: Speci men Type: BLOOD SPECIMENOrdering Facility: [facility] Address: [address] [place] [address] Result Comment: Resu lts may be falsely increased due to interference from hemolysis. Suggest reorder as clinically indicated. Performed By: #### 1 9123-9, 2777-, 80466-9 ####[facility] LABIA [id number] [place] [address] [place] Bilirubin [Mass/Vol] 0.6 mg/dL Normal 0.2-1.3 [facility] Comment on above: Order Comment: Speci men Type: BLOOD SPECIMENOrdering Facility: [facility] Address: [address] [place] [address] Performed By: #### 1 9123-9, 2777-, 12277-2 ####[facility] LABCLIA [id number] [place] [address] [place] Calcium [Mass/Vol] 8.4 mg/dL Low 8.5-10.2 [facility] Comment on above: Order Comment: Speci men Type: BLOOD SPECIMENOrdering Facility: [facility] Address: [address] [address] Performed By: #### 1 9123-9, 27709-25, ####[facility] LABCLIA [id number] [place] [address] [place] Chloride [Moles/Vol] 104 mmol/L Normal 97-105 [facility] Comment on above: Order Comment: Speci men Type: BLOOD SPECIMENOrdering Facility: [facility] Address: [address] [place] [address] Performed By: #### 1 9123-9, 27709-25, ####[facility] LABCLIA [id number] [place] [address] [place] CO2 [Moles/Vol] 18 mmol/L Low 22-30 [facility] Comment on above: Order Comment: Speci men Type: BLOOD SPECIMENOrdering Facility: [facility] Address: [address] [place] [address] Performed By: #### 1 9123-9, 2776-03, ####[facility] LABCLIA [id number] [place] [address] [place] Creatinine [Mass/Vol] 1.32 mg/dL High 0.73-1.22 [facility] Comment on above: Order Comment: Speci men Type: BLOOD SPECIMENOrdering Facility: [facility] Address: [address] Performed By: #### 1 9123-9, 27709-25, 68886-9 ####[facility] LABCLIA [id number] [place] [address] [place] ESTIMATED GLOMERULAR FILTRATION RATE 59 mL/min/1.73m??? Low >=60 [facility] Comment on above: Order Comment: Cierra cartwright Type: BLOOD SPECIMENOrdering Facility: [facility] Address: [address] [place] [address] Result Comment: Ignacia mated Glomerular Filtration Rate (eGFR) is calculated using the 2020 CKD-EPI creatinine equation. This equation utilizes serum creatinine, sex, and age as parameters. The creatinine assay has traceable calibration to isotope dilution-mass spectrometry. Refer to KDIGO guidelines for clinical interpretation. In patients with unstable renal function, e.g. those with acute kidney injury, the eGFR may not accurately reflect actual GFR. Performed By: #### 1 9123-9, 2777-1, 49782-7 ####[facility] LABIA [id number] [place] [address] [place] Glucose [Mass/Vol] 119 mg/dL High 74-99 [facility] Comment on above: Order Comment: Cierra cartwright Type: BLOOD SPECIMENOrdering Facility: [facility] Address: [address] [place] [address] Result Comment: The [place] Diabetes Association (ADA) provides guidance for cutoff values for fasting glucose and random glucose. The ADA defines fasting as no caloric intake for at least 8 hours. Fasting plasma glucose results between 100 to 125 mg/dL indicate increased risk for diabetes (prediabetes).Fasting plasma glucose results greater than or equal to 126 mg/dL meet the criteria for diagnosis of diabetes. In the absence of unequivocal hyperglycemia, results should be confirmed by repeat testing. In a patient with classic symptoms of hyperglycemia or hyperglycemic crisis, random plasma glucose results greater than or equal to 200 mg/dL meet the criteria for diagnosis of diabetes.Reference: Standards of Medical Care in Diabetes 2016, [place] Diabetes [employer]. Diabetes Care. 2016.39(Suppl 1). Performed By: #### 1 9123-9, 2777-1, 38407-7 ####[facility] LABIA [id number] [place] [id number] [place] Potassium [Moles/Vol] Normal [facility] Comment on above: Order Comment: Speci men Type: BLOOD SPECIMENOrdering Facility: [facility] Address: [address] [place], [place] [address] Result Comment: Unab le to assay due to interference from hemolysis. Suggest reorder as clinically indicated. Performed By: #### 1 9123-9, 277-, 38342-2 ####[facility] LABCLIA [id number] [place] [address] [place] Protein [Mass/Vol] 6.1 g/dL Low 6.3-8.0 [facility] Comment on above: Order Comment: Speci men Type: BLOOD SPECIMENOrdering Facility: [facility] Address: [address] [place] [address] Performed By: #### 1 9123-9, 2776-03, 08569-1 ####[facility] LABCLIA [id number] [place] [address] [place] Sodium [Moles/Vol] 134 mmol/L Low 136-144 [facility] Comment on above: Order Comment: Speci men Type: BLOOD SPECIMENOrdering Facility: [facility] Address: [address] [place], [place] [address] Performed By: #### 1 9123-9, 2776-03, 77437-6 ####[facility] LABCLIA [id number] [place] [address] [place] Urea nitrogen [Mass/Vol] 30 mg/dL High 9-24 [facility] Comment on above: Order Comment: Speci men Type: BLOOD SPECIMENOrdering Facility: [facility] Address: [address] [place], [place] [address] Performed By: #### 1 9123-9, 277-, 25662-7 ####[facility] LABCLIA [id number] [place] [id number] [place] HISTORY PHYSICALon 3 HISTORY PHYSICAL Normal [facility] MAGNESIUMon 07-21-2022 Magnesium [Mass/Vol] 2.0 mg/dL Normal 1.8-2.4 [facility] Comment on above: Performed By: #### R SPLUS #### [facility] [address] [address] [address] Cuba Weber Magnesium SerPl-mCncon 07-21 Magnesium [Mass/Vol] 1.8 mg/dL Normal 1.7-2.3 [facility] Comment on above: Order Comment: Speci men Type: BLOOD SPECIMENOrdering Facility: [facility] Address: [address] [place] [address] Performed By: #### 1 9123-9, 2777-1, 53699-0 ####[facility] LABCLIA [id number] [facility] [id number] [place] [address] [place] PROF 14(COMP METB)on 023 Albumin [Mass/Vol] 2.1 g/dL Critically low 3.4-5.0 [facility] Comment on above: Performed By: #### R SPLUS #### [facility] [address] [address] [address] Cuba Weber Albumin/Globulin [Mass ratio] 0.6 {ratio} Normal [facility] Comment on above: Performed By: #### R SPLUS #### [facility] [address] [address] [address] Cuba Weber ALP [Catalytic activity/Vol] 67 U/L Normal 46-116 [facility] Comment on above: Performed By: #### R SPLUS #### [facility] [address] [address] [address] Cuba Weber ALT [Catalytic activity/Vol] 35 U/L Normal 16-63 [facility] Comment on above: Performed By: #### R SPLUS #### [facility] [address] [address] [address] Cuba Weber Anion gap [Moles/Vol] 16.8 mmol/L Normal [facility] Comment on above: Performed By: #### R SPLUS #### [facility] [address] [address] [address] Cuba Weber AST [Catalytic activity/Vol] 50 U/L Critically high 15-37 [facility] Comment on above: Performed By: #### R SPLUS #### [facility] [address] [address] [address] Cuba Weber Bilirubin [Mass/Vol] 1.0 mg/dL Normal 0.2-1.0 [facility] Comment on above: Performed By: #### R SPLUS #### [facility] [facility] [address] [address] [address] Cuba Weber Calcium [Mass/Vol] 8.2 mg/dL Critically low 8.5-10.1 [facility] Comment on above: Performed By: #### R SPLUS #### [facility] [address] [address] [address] Cuba Weber Chloride [Moles/Vol] 102 mmol/L Normal 98-107 [facility] Comment on above: Performed By: #### R SPLUS #### [facility] [address] [address] [address] Cuba Weber CO2 [Moles/Vol] 18.4 mmol/L Critically low 21.0-32.0 [facility] Comment on above: Performed By: #### R SPLUS #### [facility] [address] [address] [address] Cuba Weber Creatinine [Mass/Vol] 1.53 mg/dL Critically high 0.70-1.30 [facility] Comment on above: Performed By: #### R SPLUS #### [facility] [address] [address] [address] Cuba Weber EGFR-AF ITALIAN 55 mL/min/1.73m2 Critically low >=60 [facility] Comment on above: Performed By: #### R SPLUS #### [facility] [address] [address] [address] Cuba Weber EGFR-NON AF ITALIAN 46 mL/min/1.73m2 Critically low >=60 [facility] Comment on above: Performed By: #### R SPLUS #### [facility] [address] [address] [address] Cuba Weber Globulin (S) [Mass/Vol] 3.7 g/dL Normal [facility] Comment on above: Performed By: #### R SPLUS #### [facility] [address] [address] [address] Cuba Weber Glucose [Mass/Vol] 107 mg/dL Critically high 74-106 [facility] Comment on above: Performed By: #### R SPLUS #### [facility] [address] [address] [address] Cuba Weber Potassium [Moles/Vol] 4.2 mmol/L Normal 3.5-5.1 [facility] Comment on above: Performed By: #### R SPLUS #### [facility] [address] [place] [address] Dr. Cuba Weber Protein [Mass/Vol] 5.8 g/dL Critically low 6.4-8.2 [facility] Comment on above: Performed By: #### R SPLUS #### [facility] [address] [place] [address] Dr. Cuba Weber Sodium [Moles/Vol] 133 mmol/L Critically low 136-145 [facility] Comment on above: Performed By: #### R SPLUS #### [facility] [address] [place] [address] Dr. Cuba Weber Urea nitrogen [Mass/Vol] 27.0 mg/dL Critically high 7.0-18.0 [facility] Comment on above: Performed By: #### R SPLUS #### [facility] [address] [place] [address] Dr. Cuba Weber Urea nitrogen/Creatinine [Mass ratio] 17.6 mg/mg Normal [facility] Comment on above: Performed By: #### R SPLUS #### [facility] [address] [place] [address] Dr. Cuba Weber Phosphate SerPl-ncon 07-21 Phosphate [Mass/Vol] 1.9 mg/dL Low 2.7-4.8 [facility] Comment on above: Order Comment: Speci men Type: BLOOD SPECIMENOrdering Facility: [facility] Address: [address] [place] [address] Performed By: #### 2 4323-8, 2777-1 ####[facility] LABCLIA [id number] [address] [place] [facility] Phosphate [Mass/Vol] 1.7 mg/dL Low 2.7-4.8 [facility] Comment on above: Order Comment: Speci men Type: BLOOD SPECIMENOrdering Facility: [facility] Address: [address] [place] [address] Performed By: #### 1 9123-9, 2777-1, 06683-5 ####[facility] LABCLIA [id number] [address] ST[employer] AURE[employer] PCRon S. aureus and MRSA panel ROSSANA+probe (Nose) Normal Negative [facility] Comment on above: Order Comment: Speci men Type: SWAB OF INTERNAL NOSEOrdering Facility: [facility] Address: [address] [place] [address] Result Comment: Nega tive for Staphylococcus aureus by PCR.Negative for MRSA by PCR Performed By: #### S APCR ####[facility] LABCLIA [id number] [address] [place] URINALYSIS, REFLEX MICROSCOP ICon 07-21-2022 Bacteria LM.HPF (Urine sed) [#/Area] Rare Abnormal None Seen [facility] Comment on above: Order Comment: Speci men Type: URINE SPECIMENOrdering Facility: [facility] Address: [address] [place] [address] Performed By: #### L [id number] ####[facility] LABCLIA [id number] [place] [address] [place] Bilirubin Ql (U) Negative Normal Negative [facility] Comment on above: Order Comment: Speci men Type: URINE SPECIMENOrdering Facility: [facility] Address: [address] Performed By: #### L [id number] ####[facility] LABCLIA [id number] [place] [address] [place] Clarity (Unsp spec) Clear Normal Clear [facility] Comment on above: Order Comment: Speci men Type: URINE SPECIMENOrdering Facility: [facility] Address: [address] [address] Performed By: #### L [id number] ####[facility] LABCLIA [id number] [place] [address] [place] [facility] Color (U) Yellow Normal Yellow [facility] Comment on above: Order Comment: Speci men Type: URINE SPECIMENOrdering Facility: [facility] Address: [address] [place], [place] [id number] Performed By: #### L [id number] ####[facility] LABCLIA [id number] [place] [address] [place] Glucose Test strip (U) [Mass/Vol] Negative Normal Trace, Negative [facility] Comment on above: Order Comment: Speci men Type: URINE SPECIMENOrdering Facility: [facility] Address: [address] Performed By: #### L [id number] ####[facility] LABCLIA [id number] [place] [address] [place] Hemoglobin Ql (U) 3+ Abnormal Negative, Trace [facility] Comment on above: Order Comment: Speci men Type: URINE SPECIMENOrdering Facility: [facility] Address: [address] Performed By: #### L [id number] ####[facility] LABCLIA [id number] [address] [place] Ketones Ql (U) 1+ Abnormal Trace, Negative [facility] Comment on above: Order Comment: Speci men Type: URINE SPECIMENOrdering Facility: [facility] Address: [address] [place] [address] Performed By: #### L [id number] ####[facility] LABCLIA [id number] [place] [address] [place] Leukocyte esterase Test strip Ql (U) 500 Arnulfo/uL Abnormal Negative, 25 Arnulfo/uL [facility] Comment on above: Order Comment: Speci men Type: URINE SPECIMENOrdering Facility: [facility] Address: [address] [place] [address] Performed By: #### L [id number] ####[facility] LABCLIA [id number] [address] STATES [facility] Nitrite Ql (U) Negative Normal Negative [facility] Comment on above: Order Comment: Speci men Type: URINE SPECIMENOrdering Facility: [facility] Address: [address] [place] [address] Performed By: #### L [id number] ####[facility] LABCLIA [id number] [place] [address] [place] pH (U) 6.0 [pH] Normal 5.0-8.0 [facility] Comment on above: Order Comment: Speci men Type: URINE SPECIMENOrdering Facility: [facility] Address: [address] [place] [address] Performed By: #### L [id number] ####[facility] LABCLIA [id number] [place] [address] [place] [facility] Protein (U) [Mass/Vol] 2+ Abnormal Trace , Negative [facility] Comment on above: Order Comment: Speci men Type: URINE SPECIMENOrdering Facility: [facility] Address: [address] [place] [address] Performed By: #### L [id number] ####[facility] LABCLIA [id number] [place] [address] [place] RBC LM.HPF (Urine sed) [#/Area] /[HPF] Abnormal 0-3 /HPF [facility] Comment on above: Order Comment: Speci men Type: URINE SPECIMENOrdering Facility: [facility] Address: [address] [place] [address] Performed By: #### L [id number] ####[facility] LABIA [id number] [place] [address] [place] Specific gravity (U) [Rel density] 1.019 Normal 1.005-1.030 [facility] Comment on above: Order Comment: Speci men Type: URINE SPECIMENOrdering Facility: [facility] Address: [address] [place] [address] Performed By: #### L [id number] ####[facility] LABIA [id number] [place] [address] [place] Urobilinogen Ql (U) 1+ Abnormal Negative [facility] Comment on above: Order Comment: Speci men Type: URINE SPECIMENOrdering Facility: [facility] Address: [address] [place] [address] Performed By: #### L [id number] ####[facility] LABIA [id number] [place] [address] [place] WBC LM.HPF (Urine sed) [#/Area] /[HPF] Abnormal 0-5 /HPF [facility] Comment on above: Order Comment: Speci men Type: URINE SPECIMENOrdering Facility: [facility] Address: [address] [place] [address] Performed By: #### L [id number] ####[facility] LABIA [id number] [place] [address] [place] US KIDNEY/BLADDERon 07-22-19 23 US KIDNEY/BLADDER Normal [facility] XR CHEST 1V FRONTAL PORTon 0 07-21-2022 XR CHEST 1V FRONTAL PORT Normal [facility] C. DIFF PCRon 07-20-2022 C. DIFFICILE PCR Negative Normal NEGATIVE [facility] Comment on above: Performed By: #### L ACT #### [facility] [address] [address] [address] Cuba Weber CBC W MANUAL DIFFon 07-21-19 23 ANISOCYTOSIS 1+ Normal [facility] Comment on above: Performed By: #### C YAHIR #### [facility] [address] [place] [address] Dr. Cuba Weber ATYPICAL LYMPH # Normal [facility] Comment on above: Performed By: #### C YAHIR #### [facility] [address] [place] [address] Dr. Cuba Weber ATYPICAL LYMPH % Normal [facility] Comment on above: Performed By: #### C YAHIR #### [facility] [address] [place] [address] Dr. Cuba Weber BAND # 0.7 103/ul Critically high 0.0-0.[address] [facility] Comment on above: Performed By: #### C YAHIR #### [facility] [address] [place] [address] Dr. Cuba Weber BAND % 11 % Critically high 0-[address] [facility] Comment on above: Performed By: #### C YAHIR #### [facility] [address] [place] [address] Dr. Cuba Weber BASOM # 0.00 103/ul Normal 0.00-0.10 [facility] Comment on above: Performed By: #### C YAHIR #### [facility] [address] [place] [address] Dr. Cuba Weber BASOM % 0.0 % Critically low 0.2-2.0 [facility] Comment on above: Performed By: #### C YAHIR #### [facility] [address] [place] [address] Dr. Cuba Weber BLAST # Normal [facility] Comment on above: Performed By: #### C YAHIR #### [facility] [address] [address] [address] Cuba Weber BLAST % Normal [facility] Comment on above: Performed By: #### C YAHIR #### [facility] [address] [address] [address] Cuba Weber CORRECTED WBC Normal 4.0-11.0 [facility] Comment on above: Performed By: #### C YAHIR #### [facility] [address] [address] [address] Cuba Weber EOS # 0.06 103/ul Normal 0.00-0.70 [facility] Comment on above: Performed By: #### C YAHIR #### [facility] [address] [place] [address] Dr. Cuba Weber EOS% 1.0 % Normal 0.9-7.0 [facility] Comment on above: Performed By: #### C YAHIR #### [facility] [address] [place] [address] Dr. Cuba Weber HCT 34.7 % Critically low 42.0-54.0 [facility] Comment on above: Performed By: #### C YAHIR #### [facility] [address] [place] [address] Dr. Cuba Weber HGB 11.7 g/dl Critically low 14.0-18.0 [facility] Comment on above: Performed By: #### C YAHIR #### [facility] [address] [place] [address] Dr. Cuba Weber LYMPHM # 0.48 103/ul Critically low 1.20-3.[address] [facility] Comment on above: Performed By: #### C YAHIR #### [facility] [address] [place] [address] Dr. Cuba Weber LYMPHM% 8.0 % Critically low 20.5-60.0 [facility] Comment on above: Performed By: #### C YAHIR #### [facility] [address] [address] [address] Cuba Weber MCH 28.4 pg Normal 25.9-34.0 [facility] Comment on above: Performed By: #### C YAHIR #### [facility] [address] [place] [address] Dr. Cuba Weber MCHC 33.7 g/dl Normal 29.9-35.2 [facility] Comment on above: Performed By: #### C YAHIR #### [facility] [address] [place] [address] Dr. Cuba Weber MCV 84.2 fL Normal 80.0-94.0 [facility] Comment on above: Performed By: #### C BCTERE #### [facility] [address] [place] [address] Dr. Cuba Weber METAMYELOCYTE # Normal [facility] Comment on above: Performed By: #### C YAHIR #### [facility] [address] [place] [address] Dr. Cuba Weber METAMYELOCYTE % Normal [facility] Comment on above: Performed By: #### C YAHIR #### [facility] [address] [place] [address] Dr. Cuba Weber MONOM# 0.18 103/ul Critically low 0.30-0.80 [facility] Comment on above: Performed By: #### C YAHIR #### [facility] [address] [place] [address] Dr. Cuba Weber MONOM% 3.0 % Normal 1.7-12.0 [facility] Comment on above: Performed By: #### C YAHIR #### [facility] [address] [place] [address] Dr. Cuab Weber MPV 10.6 fL Normal 9.5-13.5 [facility] Comment on above: Performed By: #### C YAHIR #### [facility] [address] [place] [address] Dr. Cuba Weber MYELOCYTE # Normal [facility] Comment on above: Performed By: #### C YAHIR #### [facility] [address] [address] [address] Cuba Weber MYELOCYTE % Normal [facility] Comment on above: Performed By: #### C YAHIR #### [facility] [address] [address] [address] Cuba Weber NRBC Normal [facility] Comment on above: Performed By: #### C BCTERE #### [facility] [address] [address] [address] Cuba Weber PLT 80 103/ul Critically low 150-450 [facility] Comment on above: Performed By: #### C BCTERE #### [facility] [address] [address] [address] Cuba Weber RBC 4.12 106/ul Critically low 4.70-6.10 [facility] Comment on above: Performed By: #### C YAHIR #### [facility] [address] [place] [address] Dr. Cuba Weber RDW 14.9 % Normal 11.0-15.0 [facility] Comment on above: Performed By: #### C YAHIR #### [facility] [address] [place] [address] Dr. Cuba Weber SEG # 4.62 103/ul Normal 1.40-6.50 [facility] Comment on above: Performed By: #### C YAHIR #### [facility] [address] [place] [address] Dr. Cuba Weber SEG % 77.0 % Critically high 43.0-75.0 [facility] Comment on above: Performed By: #### C BCMAN #### [facility] [address] [place] [address] Dr. Cuba Weber WBC 6.0 103/ul Normal 4.0-11.0 [facility] Comment on above: Performed By: #### C BCMAN #### [facility] [address] [place] [address] Dr. Cuba Weber ATYPICAL LYMPH # Normal [facility] Comment on above: Performed By: #### L ACT #### [facility] [address] [place] [address] Dr. Cuba Weber ATYPICAL LYMPH % Normal [facility] Comment on above: Performed By: #### L ACT #### [facility] [address] [place] [address] Dr. Cuba Weber BAND # 1.9 103/ul Critically high 0.0-0.3 [facility] Comment on above: Performed By: #### L ACT #### [facility] [address] [place] [address] Dr. Cuba Weber BAND % 10 % Critically high 0-[address] [facility] Comment on above: Performed By: #### L ACT #### [facility] [address] [place] [address] Dr. Cuba Weber BASOM # 0.00 103/ul Normal 0.00-0.10 [facility] Comment on above: Performed By: #### L ACT #### [facility] [address] [place] [address] Dr. Cuba Weber BASOM % 0.0 % Critically low 0.2-2.0 [facility] Comment on above: Performed By: #### L ACT #### [facility] [address] [place] [address] Dr. Cuba Weber BLAST # Normal [facility] Comment on above: Performed By: #### L ACT #### [facility] [address] [place] [address] Dr. Cuba Weber BLAST % Normal [facility] Comment on above: Performed By: #### L ACT #### [facility] [address] [place] [address] Dr. Cuba Weber CORRECTED WBC Normal 4.0-11.0 [facility] Comment on above: Performed By: #### L ACT #### [facility] [address] [place] [address] Dr. Cuba Weber EOS # 0.00 103/ul Normal 0.00-0.70 [facility] Comment on above: Performed By: #### L ACT #### [facility] [address] [place] [address] Dr. Cuba Weber EOS% 0.0 % Critically low 0.9-7.0 [facility] Comment on above: Performed By: #### L ACT #### [facility] [address] [place] [address] Dr. Cuba Weber HCT 31.9 % Critically low 42.0-54.0 [facility] Comment on above: Performed By: #### L ACT #### [facility] [address] [address] [address] Cuba Weber HGB 10.6 g/dl Critically low 14.0-18.0 [facility] Comment on above: Performed By: #### L ACT #### [facility] [address] [place] [address] Dr. Cuba Weber LYMPHM # 1.15 103/ul Critically low 1.20-3.80 [facility] Comment on above: Performed By: #### L ACT #### [facility] [address] [place] [address] Dr. Cuba Weber LYMPHM% 6.0 % Critically low 20.5-60.0 [facility] Comment on above: Performed By: #### L ACT #### [facility] [address] [place] [address] Dr. Cuba Weber MCH 28.5 pg Normal 25.9-34.0 [facility] Comment on above: Performed By: #### L ACT #### [facility] [address] [place] [address] Dr. Cuba Weber MCHC 33.2 g/dl Normal 29.9-35.2 [facility] Comment on above: Performed By: #### L ACT #### [facility] [address] [place] [address] Dr. Cuba Weber MCV 85.8 fL Normal 80.0-94.0 [facility] Comment on above: Performed By: #### L ACT #### [facility] [address] [place] [address] Dr. Cuba Weber METAMYELOCYTE # Normal [facility] Comment on above: Performed By: #### L ACT #### [facility] [address] [place] [address] Dr. Cuba Weber METAMYELOCYTE % Normal [facility] Comment on above: Performed By: #### L ACT #### [facility] [address] [place] [address] Dr. Cuba Weber MONOM# 0.00 103/ul Critically low 0.30-0.80 [facility] Comment on above: Performed By: #### L ACT #### [facility] [address] [place] [address] Dr. Cuba Weber MONOM% 0.0 % Critically low 1.7-12.0 [facility] Comment on above: Performed By: #### L ACT #### [facility] [address] [place] [address] Dr. [place] Weber MPV 10.7 fL Normal 9.5-13.5 [facility] Comment on above: Performed By: #### L ACT #### [facility] [address] [place] [address] Dr. Cuba Weber MYELOCYTE # Normal [facility] Comment on above: Performed By: #### L ACT #### [facility] [address] [place] [address] Dr. Cuba Weber MYELOCYTE % Normal [facility] Comment on above: Performed By: #### L ACT #### [facility] [address] [place] [address] Dr. Cuba Weber NRBC Normal [facility] Comment on above: Performed By: #### L ACT #### [facility] [address] [place] [address] Dr. Cuba Weber PLT 93 103/ul Critically low 150-450 [facility] Comment on above: Performed By: #### L ACT #### [facility] [address] [place] [address] Dr. Cuba Weber RBC 3.72 106/ul Critically low 4.70-6.10 [facility] Comment on above: Performed By: #### L ACT #### [facility] [address] [place] [address] Dr. Cuba Weber RDW 14.7 % Normal 11.0-15.0 [facility] Comment on above: Performed By: #### L ACT #### [facility] [place] [facility] [address] [place], [place] [address] Dr. Cuba Weber SEG # 16.13 103/ul Critically high 1.40-6.50 [facility] Comment on above: Performed By: #### L ACT #### [facility] [address] [id number] Cuba Weber SEG % 84.0 % Critically high 43.0-75.0 [facility] Comment on above: Performed By: #### L ACT #### [facility] [place] [facility] [address] [place], [place] [address] Dr. Cuba Weber WBC 19.2 103/ul Critically high 4.0-11.0 [facility] Comment on above: Performed By: #### L ACT #### [facility] [place] [facility] [address] [address] [address] ABD/PELVIS WO CONon 07-20 CT ABD/PELVIS WO CON EXAMINATION: CT ABD/PELVIS WO CON HISTORY: CALCULUS OF KIDNEY , fever COMPARISON: CT abdomen pelvis 10/17/2020 TECHNIQUE: Axial, Coronal, and Sagittal images were obtained without and/or with IV contrast as indicated by examination type. Dose reduction techniques were achieved by using automated exposure control and/or adjustment of mA and/or kV according to patient size and/or use of iterative reconstruction technique. FINDINGS: LUNG BASES: Mild atelectasis versus infiltrates within dependent lung bases and trace amount of pleural fluid bilaterally. LIVER: No enlargement, atrophy, suspicious density, or significant focal lesion. BILIARY: Small amount of dense sludge versus layering tiny granular stones within gallbladder. PANCREAS: No lesion, fluid collection, or abnormal duct dilatation. SPLEEN: No enlargement or focal lesion. ADRENALS: No mass or enlargement. KIDNEYS: 18 x 11 x 14 mm stone within right renal pelvis at the ureteropelvic junction causing mild hydronephrosis. Numerous stones/collections of stones within inferior pole calyces. 15 x 15 x 14 mm nonobstructing stone in left renal pelvis. BOWEL/MESENTERY: No visible mass, obstruction, or bowel wall thickening. AORTA/VASCULAR: No aneurysm or dissection. RETROPERITONEUM: No mass or adenopathy. LYMPH NODES: No adenopathy. URINARY BLADDER: No visible focal wall thickening, lesion, or calculus. PELVIC ORGANS: No visible mass. Pelvic organs appropriate for patient age. ABDOMINAL WALL: No mass or hernia. BONES: No bony lesion or fracture. OTHER: Negative. IMPRESSION: 1.Moderate right hydronephrosis secondary to an 18 mm calcification within renal pelvis at the ureteropelvic junction. 2.Several additional large stones versus collection of stones within inferior pole of right kidney. 3. Large nonobstructing 15 mm stone within left renal pelvis. 4.Mild atelectasis versus infiltrates within posterior lung bases and trace amount of pleural fluid bilaterally. 5. Suspect cholelithiasis. This could also represent dense sludge. Electronically authenticated by: MINERVA REN Date: 2022-07-20 16:47 Normal [facility] MAGNESIUMon 07-20-2022 Magnesium [Mass/Vol] 1.5 mg/dL Critically low 1.8-2.4 [facility] [place] Comment on above: Performed By: #### L ACT #### [facility] [place] [facility] [address] [address] [address] Cuba Weber Magnesium [Mass/Vol] 1.3 mg/dL Critically low 1.8-2.4 [facility] Comment on above: Performed By: #### M G, CMP ####[facility] [place] [id number] [place], [place] [address]JvDr. Cuba Weber PROF 14(COMP METB)on 023 Albumin [Mass/Vol] 2.7 g/dL Critically low 3.4-5.0 [facility] Comment on above: Performed By: #### L ACT #### [facility] [place] [facility] [address] [place], [place] [address] Dr. Cuba Weber Albumin/Globulin [Mass ratio] 0.7 {ratio} Normal [facility] [place] Comment on above: Performed By: #### L ACT #### [facility] [place] [facility] [address] [address] [address] Cuba Weber ALP [Catalytic activity/Vol] 89 U/L Normal 46-116 [facility] [place] Comment on above: Performed By: #### L ACT #### [facility] [place] [facility] [address] [address] [address] Cuba Weber ALT [Catalytic activity/Vol] 42 U/L Normal 16-63 [facility] Comment on above: Performed By: #### L ACT #### [facility] [place] [facility] [address] [address] [address] Cuba Weber Anion gap [Moles/Vol] 19.1 mmol/L Normal [facility] Comment on above: Performed By: #### L ACT #### [facility] [place] [facility] [address] [address] [address] Cuba Weber AST [Catalytic activity/Vol] 60 U/L Critically high 15-37 [facility] Comment on above: Performed By: #### L ACT #### [facility] [place] [facility] [address] [place] [address] Dr. Cuba Weber Bilirubin [Mass/Vol] 1.9 mg/dL Critically high 0.2-1.0 [facility] Comment on above: Performed By: #### L ACT #### [facility] [place] [facility] [address] [address] [address] Cuba Weber Calcium [Mass/Vol] 8.2 mg/dL Critically low 8.5-10.1 [facility] Comment on above: Performed By: #### L ACT #### [facility] [place] [facility] [address] [place] [address] Dr. Cuba Weber Chloride [Moles/Vol] 102 mmol/L Normal 98-107 [facility] Comment on above: Performed By: #### L ACT #### [facility] [place] [facility] [address] [address] [address] Cuba Weber CO2 [Moles/Vol] 20.2 mmol/L Critically low 21.0-32.0 [facility] Comment on above: Performed By: #### L ACT #### [facility] [place] [facility] [address] [address] [address] Cuba Weber Creatinine [Mass/Vol] 2.29 mg/dL Critically high 0.70-1.30 [facility] Comment on above: Performed By: #### L ACT #### [facility] [place] [facility] [address] [address] [address] Cuba Weber EGFR-AF ITALIAN 35 mL/min/1.73m2 Critically low >=60 [facility] Comment on above: Performed By: #### L ACT #### [facility] [place] [facility] [address] [address] [address] Cuba Weber EGFR-NON AF ITALIAN 29 mL/min/1.73m2 Critically low >=60 [facility] Comment on above: Performed By: #### L ACT #### [facility] [place] [facility] [address] [address] [address] Cuba Weber Globulin (S) [Mass/Vol] 3.9 g/dL Normal [facility] Comment on above: Performed By: #### L ACT #### [facility] [place] [facility] [address] [address] [address] Cuba Weber Glucose [Mass/Vol] 78 mg/dL Normal 74-106 [facility] Comment on above: Performed By: #### L ACT #### [facility] [place] [facility] [address] [address] [address] Cuba Weber Potassium [Moles/Vol] 4.3 mmol/L Normal 3.5-5.1 [facility] Comment on above: Performed By: #### L ACT #### [facility] [place] [facility] [address] [address] [address] Cuba Weber Protein [Mass/Vol] 6.6 g/dL Normal 6.4-8.2 [facility] Comment on above: Performed By: #### L ACT #### [facility] [place] [facility] [address] [address] [address] Cuba Weber Sodium [Moles/Vol] 137 mmol/L Normal 136-145 [facility] Comment on above: Performed By: #### L ACT #### [facility] [place] [facility] [address] [address] [address] Cuba Weber Urea nitrogen [Mass/Vol] 30.0 mg/dL Critically high 7.0-18.0 [facility] Comment on above: Performed By: #### L ACT #### [facility] [place] [facility] [address] [address] [address] Cuba Weber Urea nitrogen/Creatinine [Mass ratio] 13.1 mg/mg Normal [facility] Comment on above: Performed By: #### L ACT #### [facility] [place] [facility] [address] [address] [address] Cuba Weber Albumin [Mass/Vol] 2.4 g/dL Critically low 3.4-5.0 [facility] Comment on above: Performed By: #### Wendy Dunham, CMP ####[facility] [place] [address] [address]Dr. Cuba Weber Albumin/Globulin [Mass ratio] 0.7 {ratio} Normal [facility] Comment on above: Performed By: #### Wendy Dunham, CMP ####[facility] [place] [address] [address]DrGlory Weber ALP [Catalytic activity/Vol] 65 U/L Normal 46-116 [facility] Comment on above: Performed By: #### Wendy Dunham, CMP ####[facility] [place] [address] [address]Dr. [place] Weber ALT [Catalytic activity/Vol] 33 U/L Normal 16-63 [facility] Comment on above: Performed By: #### Wendy Dunham, CMP ####[facility] [place] [address] [address]DrGlory Weber Anion gap [Moles/Vol] 14.1 mmol/L Normal [facility] Comment on above: Performed By: #### Wendy Dunham, CMP ####[facility] [place] [address] [address]DrGlory Weber AST [Catalytic activity/Vol] 42 U/L Critically high 15-37 [facility] Comment on above: Performed By: #### Wendy Dunham, CMP ####[facility] [place] [address] [address]DrGlory Weber Bilirubin [Mass/Vol] 1.5 mg/dL Critically high 0.2-1.0 [facility] Comment on above: Performed By: #### Wendy Dunham, CMP ####[facility] [place] [address] [address]Dr. [place] Weber Calcium [Mass/Vol] 7.8 mg/dL Critically low 8.5-10.1 Th e [facility] [place] Comment on above: Performed By: #### M Charla, CMP ####[facility] [place] [address] [address]Dr. Cuba Weber Chloride [Moles/Vol] 104 mmol/L Normal 98-107 [facility] Comment on above: Performed By: #### M Charla, CMP ####[facility] [place] [address] [place], [place] [address]Dr. Cuba Weber CO2 [Moles/Vol] 20.8 mmol/L Critically low 21.0-32.0 [facility] Comment on above: Performed By: #### Wendy Dunham, CMP ####[facility] [place] [address] [place], [place] [address]Dr. [place] Weber Creatinine [Mass/Vol] 2.41 mg/dL Critically high 0.70-1.30 [facility] Comment on above: Performed By: #### Wendy Dunham, CMP ####[facility] [place] [address] [place], [place] [address]Dr. [place] Gus EGFR-AF ITALIAN 33 mL/min/1.73m2 Critically low >=60 [facility] Comment on above: Performed By: #### Wendy Dunham, CMP ####[facility] [place] [address] [place], [place] [address]Dr. [place] Gus EGFR-NON AF ITALIAN 27 mL/min/1.73m2 Critically low >=60 [facility] Comment on above: Performed By: #### Wendy Dunham, CMP ####[facility] [place] [address] [address]Dr. [place] Gus Globulin (S) [Mass/Vol] 3.5 g/dL Normal [facility] Comment on above: Performed By: #### M Charla, CMP ####[facility] [place] [address] [place], [place] [address]Dr. [place] Weber Glucose [Mass/Vol] 85 mg/dL Normal 74-106 [facility] Comment on above: Performed By: #### Wendy Dunham, CMP ####[facility] [place] [address] [address]Dr. Cuba Weber Potassium [Moles/Vol] 3.9 mmol/L Normal 3.5-5.1 [facility] Comment on above: Performed By: #### M G, CMP ####[facility] [place] [address] [address]Dr. [place] Weber Protein [Mass/Vol] 5.9 g/dL Critically low 6.4-8.2 [facility] Comment on above: Performed By: #### M G, CMP ####[facility] [place] [address] [address]Dr. Cuba Weber Sodium [Moles/Vol] 135 mmol/L Critically low 136-145 [facility] Comment on above: Performed By: #### M Charla, CMP ####[facility] [place] [address] [place], [place] [address]Dr. [place] Weber Urea nitrogen [Mass/Vol] 36.0 mg/dL Critically high 7.0-18.0 [facility] Comment on above: Performed By: #### Wendy Dunham, CMP ####[facility] [place] [address] [place], [place] [address]Dr. Cuba Weber Urea nitrogen/Creatinine [Mass ratio] 14.9 mg/mg Normal [facility] Comment on above: Performed By: #### M G, CMP ####[facility] [place] [address] [place], [place] [address]Dr. Cuba Weber UA RANDOMon 07-20-2022 Bilirubin Ql (U) Negative Normal NEGATIVE [facility] Comment on above: Performed By: #### R SPLUS #### [facility] [place] [facility] [address] [place] [address] Dr. Cuba Weber Clarity (U) CLEAR Normal CLEAR [facility] Comment on above: Performed By: #### R SPLUS #### [facility] [place] [facility] [address] [address] [address] Cuba Weber Color (U) YELLOW Normal YELLOW [facility] Comment on above: Performed By: #### R SPLUS #### [facility] [place] [facility] [address] [place] [address] Dr. [place] Weber Glucose Ql (U) Negative Normal NEGATIVE [facility] Comment on above: Performed By: #### R SPLUS #### [facility] [place] [facility] [address] [place] [address] Dr. [place] Weber Hemoglobin Ql (U) LARGE Abnormal NEGATIVE [facility] Comment on above: Performed By: #### R SPLUS #### [facility] [place] [facility] [address] [place] [address] Dr. Cuba Weber Ketones Ql (U) Negative Normal NEGATIVE [facility] Comment on above: Performed By: #### R SPLUS #### [facility] [place] [facility] [address] [place] [address] Dr. Cuba Weber LEUKOCYTES LARGE Abnormal NEGATIVE [facility] Comment on above: Performed By: #### R SPLUS #### [facility] [place] [facility] [address] [place] [address] Dr. [place] Weber Nitrite Ql (U) Negative Normal NEGATIVE [facility] Comment on above: Performed By: #### R SPLUS #### [facility] [place] [facility] [address] [place] [address] Dr. [place] Weber pH (U) 6.5 [pH] Normal 5-9 [facility] [place] Comment on above: Performed By: #### R SPLUS #### [facility] [place] [facility] [address] [place] [address] Dr. Cuba Weber SPEC GRAVITY <=1.005 Abnormal 1.005-<=1.[address] [place] [address] Comment on above: Performed By: #### R SPLUS #### [facility] [place] [facility] [address] [place] [address] Dr. Cuba Weber UA PROTEIN 100 mg/dl Abnormal NEGATIVE/ TRACE [facility] [place] Comment on above: Performed By: #### R SPLUS #### [facility] [place] [facility] [address] [place] [address] Dr. [place] Weber Urobilinogen Qn (U) 1.0 {Kalina'U}/dL Normal 0.2 - 1. 0 [facility] Comment on above: Performed By: #### R SPLUS #### [facility] [place] [facility] [address] [address] [address] Cuba Weber BLOOD CULTURE ID PANELon A. baumannii Not detected Normal NOT DETECTED [facility] Comment on above: Performed By: #### L ACT #### [facility] [place] [facility] [address] [address] [address] Cuba Weber Bacteriodes fragilis Not detected Normal NOT DETECTED [facility] Comment on above: Performed By: #### L ACT #### [facility] [place] [facility] [address] [address] [address] Cuba Weber BCID CONTROLS PASSED Normal [facility] [place] [facility] Comment on above: Performed By: #### L ACT #### [facility] [place] [facility] [address] [address] [address] Cuba TOBARDBTHD BLOOD CULTURE BOTTLE INFORMATION Normal [facility] Comment on above: Performed By: #### L ACT #### [facility] [place] [facility] [address] [place] [address] Dr. Cuba TOBARDHD1 ANTIMICROBIAL RESISTANCE GENES [facility] Comment on above: Performed By: #### L ACT #### [facility] [place] [facility] [address] [address] [address] Cuba TOBARDHD2 SEE BELOW [facility] Comment on above: Result Comment: Note : Antimicrobial resitance can occur via multiple mechanisms. A Not Detected result for the [employer] antomicrobial resistance gene assays does not indicate antimicrobial susceptibility. Subculturing is required for species identification and susceptibility testing of isolates. Performed By: #### L ACT #### [facility] [place] [facility] [address] [address] [address] Cuba Weber BCIDHD3 Positive [facility] Comment on above: Performed By: #### L ACT #### [facility] [place] [facility] [address] [place] [address] Dr. Cuba TOBARDHD4 Negative [facility] Comment on above: Performed By: #### L ACT #### [facility] [place] [facility] [address] [place] [address] Dr. Cuba TOBARDHD5 YEAST Normal [facility] Comment on above: Performed By: #### L ACT #### [facility] [place] [facility] [address] [address] [address] Cuba Weber Bottle Set: Set 1 Normal [facility] Comment on above: Performed By: #### L ACT #### [facility] [place] [facility] [address] [place] [address] Dr. Cuba Weber Bottle: Aerobic Normal [facility] Comment on above: Performed By: #### L ACT #### [facility] [place] [facility] [address] [address] [address] Cuba Weber C. neoformans/gattii Not detected Normal NOT DETECTED [facility] [place] Comment on above: Performed By: #### L ACT #### [facility] [place] [facility] [address] [place] [address] Dr. Cuba Weber Marleny albicans Not detected Normal NOT DETECTED [facility] Comment on above: Performed By: #### L ACT #### [facility] [place] [facility] [address] [place] [address] Dr. [place] Weber Marleny auris Not detected Normal NOT DETECTED [facility] Comment on above: Performed By: #### L ACT #### [facility] [place] [facility] [address] [place] [address] Dr. Cuba Weber Marleny glabrata Not detected Normal NOT DETECTED [facility] [place] Comment on above: Performed By: #### L ACT #### [facility] [place] [facility] [address] [place] [address] Dr. [place] Weber Marleny Krusei Not detected Normal NOT DETECTED [facility] Comment on above: Performed By: #### L ACT #### [facility] [place] [facility] [address] [place] [address] Dr. Cuba Weber Marleny Parapsilosis Not detected Normal NOT DETECTED [facility] [place] Comment on above: Performed By: #### L ACT #### [facility] [place] [facility] [address] [place] [address] Dr. [place] Weber Marleny Tropicalis Not detected Normal NOT DETECTED [facility] Comment on above: Performed By: #### L ACT #### [facility] [place] [facility] [address] [place] [address] Dr. [place] Weber CTX-M Resistant Gene Detected Abnormal NOT DETECTED [facility] Comment on above: Performed By: #### L ACT #### [facility] [place] [facility] [address] [address] [address] Cuba Weber E. Cloacae complex Not detected Normal NOT DETECTED [facility] Comment on above: Performed By: #### L ACT #### [facility] [place] [facility] [address] [address] [address] [place] Weber E. faecalis Not detected Normal NOT DETECTED [facility] Comment on above: Performed By: #### L ACT #### [facility] [place] [facility] [address] [address] [address] [place] Weber E. faecium Not detected Normal NOT DETECTED [facility] Comment on above: Performed By: #### L ACT #### [facility] [place] [facility] [address] [place] [address] Dr. [place] Weber Enterobacteriaceae Detected Critically abnormal NOT DETECTED [facility] [place] Comment on above: Performed By: #### L ACT #### [facility] [place] [facility] [address] [place] [address] Dr. [place] Weber Escherichia coli Not detected Normal NOT DETECTED [facility] [place] Comment on above: Performed By: #### L ACT #### [facility] [place] [facility] [address] [place] [address] Dr. [place] Weber H. influenzae Not detected Normal NOT DETECTED [facility] Comment on above: Performed By: #### L ACT #### [facility] [place] [facility] [address] [place] [address] Dr. [place] Weber IMP Resistant Gene Not detected Normal NOT DETECTED [facility] Comment on above: Performed By: #### L ACT #### [facility] [place] [facility] [address] [place] [address] Dr. [place] Weber K. oxytoca Not detected Normal NOT DETECTED [facility] Comment on above: Performed By: #### L ACT #### [facility] [place] [facility] [address] [place] [address] Dr. [place] Weber K. pneumoniae Detected Critically abnormal NOT DETECTED [facility] [place] Comment on above: Performed By: #### L ACT #### [facility] [place] [facility] [address] [place] [address] Dr. [place] Weber Klebsiella aerogenes Not detected Normal NOT DETECTED [facility] [place] Comment on above: Performed By: #### L ACT #### [facility] [place] [facility] [address] [place] [address] Dr. [place] Weber KPC Resistant Gene Not detected Normal NOT DETECTED [facility] Comment on above: Performed By: #### L ACT #### [facility] [place] [facility] [address] [place] [address] Dr. Cuba Weber List. monocytogenes Not detected Normal NOT DETECTED [facility] Comment on above: Performed By: #### L ACT #### [facility] [place] [facility] [address] [place] [address] Dr. [place] Weber Mcr-1 Resistant Gene Not detected Normal NOT DETECTED [facility] [place] Comment on above: Performed By: #### L ACT #### [facility] [place] [facility] [address] [place] [address] Dr. [place] Weber mecA/C Not Applicable Normal NOT DETECTED [facility] Comment on above: Performed By: #### L ACT #### [facility] [place] [facility] [address] [place] [address] Dr. Cuba Weber mecA/C MREJ Not Applicable Normal NOT DETECTED [facility] Comment on above: Performed By: #### L ACT #### [facility] [place] [facility] [address] [place] [address] Dr. [place] Weber N. meningitidis Not detected Normal NOT DETECTED [facility] Comment on above: Performed By: #### L ACT #### [facility] [place] [facility] [address] [place] [address] Dr. Cuba Weber NDM Resistant Gene Not detected Normal NOT DETECTED [facility] Comment on above: Performed By: #### L ACT #### [facility] [place] [facility] [address] [place] [address] Dr. Cuba Weber Oxa-48-like Not detected Normal NOT DETECTED [facility] Comment on above: Performed By: #### L ACT #### [facility] [place] [facility] [address] [place] [address] Dr. [place] Weber Proteus Not detected Normal NOT DETECTED [facility] Comment on above: Performed By: #### L ACT #### [facility] [place] [facility] [address] [address] [address] Cuba Weber Pseud. aeruginosa Not detected Normal NOT DETECTED [facility] [place] Comment on above: Performed By: #### L ACT #### [facility] [place] [facility] [address] [place] [address] Dr. [place] Weber S. maltophilia Not detected Normal NOT DETECTED [facility] Comment on above: Performed By: #### L ACT #### [facility] [place] [facility] [address] [address] [address] [place] Weber Salmonella Not detected Normal NOT DETECTED [facility] Comment on above: Performed By: #### L ACT #### [facility] [place] [facility] [address] [place] [address] Dr. [place] Weber Seratia marcescens Not detected Normal NOT DETECTED [facility] Comment on above: Performed By: #### L ACT #### [facility] [place] [facility] [address] [place] [address] Dr. [place] Weber Site: Rt Ac Normal [facility] [place] Comment on above: Performed By: #### L ACT #### [facility] [place] [facility] [address] [place] [address] Dr. [place] Weber Staph. aureus Not detected Normal NOT DETECTED [facility] Comment on above: Performed By: #### L ACT #### [facility] [place] [facility] [address] [place] [address] Dr. [place] Weber Staph. epidermidis Not detected Normal NOT DETECTED [facility] Comment on above: Performed By: #### L ACT #### [facility] [place] [facility] [address] [place] [address] Dr. [place] Weber Staph. lugdunensis Not detected Normal NOT DETECTED [facility] Comment on above: Performed By: #### L ACT #### [facility] [address] [place] [address] Dr. [place] Weber Staphylococcus Not detected Normal NOT DETECTED [facility] Comment on above: Performed By: #### L ACT #### [facility] [address] [place] [address] Dr. Cuba Weber Strep. agalactiae Not detected Normal NOT DETECTED [facility] Comment on above: Performed By: #### L ACT #### [facility] [address] [place] [address] Dr. [place] Weber Strep. pneumoniae Not detected Normal NOT DETECTED [facility] Comment on above: Performed By: #### L ACT #### [facility] [address] [place] [address] Dr. uCba Weber Strep. pyogenes Not detected Normal NOT DETECTED [facility] Comment on above: Performed By: #### L ACT #### [facility] [address] [place] [address] Dr. [place] Weber Streptococcus Not detected Normal NOT DETECTED [facility] Comment on above: Performed By: #### L ACT #### [facility] [address] [place] [address] Dr. Cuba Weber Wilbert/B Resist. Gene Not Applicable Normal NOT DETECTED [facility] Comment on above: Performed By: #### L ACT #### [facility] [address] [place] [address] Dr. Cuba Weber VIM Resistant Gene Not detected Normal NOT DETECTED [facility] Comment on above: Performed By: #### L ACT #### [facility] [address] [place] [address] Dr. Cuba Weber CBC W MANUAL DIFFon 07-20-19 23 ANISOCYTOSIS 1+ Normal [facility] Comment on above: Performed By: #### C BCMAN #### [facility] [address] [place] [address] Dr. Cuba Weber ATYPICAL LYMPH # Normal [facility] Comment on above: Performed By: #### C BCMAN #### [facility] [address] [place] [address] Dr. Cuba Weber ATYPICAL LYMPH % Normal [facility] Comment on above: Performed By: #### C BCMAN #### [facility] [address] [place] [address] Dr. [place] Weber BAND # 0.1 103/ul Normal 0.0-0.3 [facility] Comment on above: Performed By: #### C BCMAN #### [facility] [address] [address] [address] Cuba Weber BAND % 1 % Normal 0-5 [facility] Comment on above: Performed By: #### C YAHIR #### [facility] [address] [place] [address] Dr. [place] Weber BASOM # 0.00 103/ul Normal 0.00-0.10 [facility] Comment on above: Performed By: #### C YAHIR #### [facility] [address] [place] [address] Dr. [place] Weber BASOM % 0.0 % Critically low 0.2-2.0 [facility] Comment on above: Performed By: #### C YAHIR #### [facility] [address] [place] [address] Dr. Cuba Weber BLAST # Normal [facility] Comment on above: Performed By: #### C YAHIR #### [facility] [address] [place] [address] Dr. Cuba Weber BLAST % Normal [facility] Comment on above: Performed By: #### C YAHIR #### [facility] [address] [place] [address] Dr. [place] eWber CORRECTED WBC Normal 4.0-11.0 [facility] Comment on above: Performed By: #### C YAHIR #### [facility] [address] [place] [address] Dr. Cuba Weber EOS # 0.00 103/ul Normal 0.00-0.70 [facility] Comment on above: Performed By: #### C YAHIR #### [facility] [address] [place] [address] Dr. [place] Weber EOS% 0.0 % Critically low 0.9-7.0 [facility] Comment on above: Performed By: #### C YAHIR #### [facility] [address] [place] [address] Dr. Cuba Weber HCT 39.0 % Critically low 42.0-54.0 [facility] Comment on above: Performed By: #### C YAHIR #### [facility] [address] [address] [address] Cuba Weber HGB 13.2 g/dl Critically low 14.0-18.0 [facility] Comment on above: Performed By: #### C YAHIR #### [facility] [address] [address] [address] Cuba Weber LYMPHM # 0.67 103/ul Critically low 1.20-3.80 [facility] Comment on above: Performed By: #### C YAHIR #### [facility] [address] [address] [address] Cuba Weber LYMPHM% 7.0 % Critically low 20.5-60.0 [facility] Comment on above: Performed By: #### C YAHIR #### [facility] [address] [place] [address] Dr. Cuba Weber MCH 28.6 pg Normal 25.9-34.0 [facility] Comment on above: Performed By: #### C YAHIR #### [facility] [address] [address] [address] Cuba Weber MCHC 33.8 g/dl Normal 29.9-35.2 [facility] Comment on above: Performed By: #### C YAHIR #### [facility] [address] [place] [address] Dr. [place] Weber MCV 84.6 fL Normal 80.0-94.0 [facility] Comment on above: Performed By: #### C YAHIR #### [facility] [address] [address] [address] Cuba Weber METAMYELOCYTE # Normal [facility] Comment on above: Performed By: #### C YAHIR #### [facility] [address] [place] [address] Dr. [place] Weber METAMYELOCYTE % Normal [facility] Comment on above: Performed By: #### C YAHIR #### [facility] [address] [address] [address] Cuba Weber MONOM# 0.29 103/ul Critically low 0.30-0.80 [facility] Comment on above: Performed By: #### C BCTERE #### [facility] [address] [place] [address] Dr. [place] Weber MONOM% 3.0 % Normal 1.7-12.0 [facility] Comment on above: Performed By: #### C BCMAN #### [facility] [address] [place] [address] Dr. [place] Weber MPV 10.1 fL Normal 9.5-13.5 [facility] Comment on above: Performed By: #### C BCTERE #### [facility] [address] [place] [address] Dr. [place] Weber MYELOCYTE # Normal [facility] Comment on above: Performed By: #### C YAHIR #### [facility] [address] [place] [address] Dr. [place] Weber MYELOCYTE % Normal [facility] Comment on above: Performed By: #### C YAHIR #### [facility] [address] [place] [address] Dr. Cuba Weber NRBC Normal [facility] Comment on above: Performed By: #### C YAHIR #### [facility] [address] [place] [address] Dr. [place] eWber PLT 115 103/ul Critically low 150-450 [facility] Comment on above: Performed By: #### C YAHIR #### [facility] [address] [place] [address] Dr. Cuba Weber RBC 4.61 106/ul Critically low 4.70-6.10 [facility] Comment on above: Performed By: #### C BCMAN #### [facility] [address] [place] [address] Dr. Cuba Weber RDW 14.3 % Normal 11.0-15.0 [facility] Comment on above: Performed By: #### C YAHIR #### [facility] [address] [place] [address] Dr. Cuba Weber SEG # 8.54 103/ul Critically high 1.40-6.50 [facility] Comment on above: Performed By: #### C BCMAN #### [facility] [address] [address] [address] Cuba Weber SEG % 89.0 % Critically high 43.0-75.0 [facility] Comment on above: Performed By: #### C BCMAN #### [facility] [address] [id number] [address] Cuba Weber WBC 9.6 103/ul Normal 4.0-11.0 [facility] Comment on above: Performed By: #### C BCMAN #### [facility] [address] [address] [address] Cuba Weber CULTURE BLOODon 07-19-2022 Microscopic examination of blood, culture Culture Observations: Pediatric bottle positive; BCID= Klebsiella Pneumoniae Culture Observations: Refer to accession #[id number] for susceptibilities. Isolate 1 Klebsiella pneumoniae Growth of Normal [facility] Comment on above: Performed By: #### C BC #### [facility] [address] [address] [address] Cuba Weber LACTATE/LACTIC ACIDon 2022 Lactate [Moles/Vol] 2.9 mmol/L Critically high 0.4-2.0 [facility] Comment on above: Performed By: #### C BC #### [facility] [address] [address] [address] Cuba Weber Lactate [Moles/Vol] 3.4 mmol/L Critically high 0.4-2.0 [facility] Comment on above: Performed By: #### L ACT #### [facility] [address] [address] [address] Cuba Weber OCC BLD IMMUNO SCREENon 06-27 OCCULT BLOOD Negative Normal NEGATIVE [facility] Comment on above: Performed By: #### O BSCRN ####[facility] [address] [address]Dr. Cuba Weber PROF CHEM 8 (BAS METB)on Anion gap [Moles/Vol] 15.1 mmol/L Normal [facility] Comment on above: Performed By: #### B VERNA, HSTROPN ####[facility] [id number] [address]Dr. Cuba Weber Calcium [Mass/Vol] 8.6 mg/dL Normal 8.5-10.1 [facility] Comment on above: Performed By: #### B VERNA, HSTROPN ####[facility] [address] [address]Dr. Cuba Weber Chloride [Moles/Vol] 99 mmol/L Normal 98-107 [facility] Comment on above: Performed By: #### B VERNA, HSTROPN ####[facility] [address] [place], [place] [address]Dr. Cuba Weber CO2 [Moles/Vol] 21.5 mmol/L Normal 21.0-32.0 [facility] Comment on above: Performed By: #### B VERNA, HSTROPN ####[facility] [id number] [place], [place] [address]Dr. Cuba Weber Creatinine [Mass/Vol] 2.93 mg/dL Critically high 0.70-1.30 [facility] Comment on above: Performed By: #### B VERNA, HSTROPN ####[facility] [id number] [place], [place] [address]Dr. Cuab Weber EGFR-AF ITALIAN 26 mL/min/1.73m2 Critically low >=60 [facility] Comment on above: Performed By: #### B VERNA, HSTROPN ####[facility] [id number] [place], [place] [address]Dr. Cuba Weber EGFR-NON AF ITALIAN 22 mL/min/1.73m2 Critically low >=60 [facility] Comment on above: Performed By: #### B VERNA, HSTROPN ####[facility] [address] [place], [place] [address]Dr. Cuba Weber Glucose [Mass/Vol] 123 mg/dL Critically high 74-106 [facility] Comment on above: Performed By: #### B VERNA, HSTROPN ####[facility] [address] [address]Dr. Cuba Weber Potassium [Moles/Vol] 3.6 mmol/L Normal 3.5-5.1 [facility] Comment on above: Performed By: #### B VERNA, HSTROPN ####[facility] [address] [address]Dr. Cuba Weber Sodium [Moles/Vol] 132 mmol/L Critically low 136-145 Th e [facility] Comment on above: Performed By: #### B VERNA, HSTROPN ####[facility] [address] [address]Dr. Cuba Weber Urea nitrogen [Mass/Vol] 34.0 mg/dL Critically high 7.0-18.0 [facility] Comment on above: Performed By: #### B VERNA, HSTROPN ####[facility] [address] [address]. Cuba Weber Urea nitrogen/Creatinine [Mass ratio] 11.6 mg/mg Normal [facility] Comment on above: Performed By: #### B VERNA, HSTROPN ####[facility] [address] [address]DrGlory Weber PROTIMEon 07-19-2022 INR Coag (PPP) [Relative time] 1.21 {INR} Normal [facility] Comment on above: Performed By: #### L ACT #### [facility] [address] [address] [address] Cuba Weber INR GUIDELINES SEE BELOW Normal [facility] Comment on above: Result Comment: GRAZYNA RED INR: 2.0 - 3.0 CONDITIONS NOT LISTED BELOW 2.5 - 3.5 FOR PROSTHETIC HEART VALVE REPLACEMENT 2.5 - 3.5 RECURRENT THROMBOSIS Performed By: #### L ACT #### [facility] [address] [address] [address] Cuba Weber PT Coag (PPP) [Time] 12.7 s Critically high 9.0-11.6 [facility] Comment on above: Performed By: #### L ACT #### [facility] [address] [address] [address] Cuba Weber PTTon 07-19-2022 aPTT Coag (Bld) [Time] 27.7 s Normal 22.3-36.2 Th e [facility] Comment on above: Performed By: #### L ACT #### [facility] [address] [place] [address] Dr. [place] Weber RESPIRATORY PANEL PLUSon Adenovirus Not detected Normal NOT DETECTED [facility] Comment on above: Performed By: #### R SPLUS #### [facility] [address] [place] [address] Dr. Cuba Monahan. Parapertusis Not detected Normal NOT DETECTED [facility] Comment on above: Performed By: #### R SPLUS #### [facility] [address] [place] [address] Dr. Cuba Monahan. Pertussis Not detected Normal NOT DETECTED [facility] Comment on above: Performed By: #### R SPLUS #### [facility] [address] [place] [address] Dr. [place] Weber Chlamydia Pneumoniae Not detected Normal NOT DETECTED [facility] Comment on above: Performed By: #### R SPLUS #### [facility] [address] [place] [address] Dr. [place] Weber Coronavirus 229E Not detected Normal NOT DETECTED [facility] Comment on above: Performed By: #### R SPLUS #### [facility] [address] [place] [address] Dr. Cuba Weber Coronavirus HKU1 Not detected Normal NOT DETECTED [facility] Comment on above: Performed By: #### R SPLUS #### [facility] [address] [place] [address] Dr. Cuba Weber Coronavirus NL63 Not detected Normal NOT DETECTED [facility] Comment on above: Performed By: #### R SPLUS #### [facility] [address] [place] [address] Dr. [place] Weber Coronavirus OC43 Not detected Normal NOT DETECTED [facility] Comment on above: Performed By: #### R SPLUS #### [facility] [address] [address] [address] Cuba Weber Influenza A H1 Not detected Normal NOT DETECTED [facility] Comment on above: Performed By: #### R SPLUS #### [facility] [address] [address] [address] Cuba Weber Influenza A H1 2009 Not detected Normal NOT DETECTED [facility] Comment on above: Performed By: #### R SPLUS #### [facility] [address] [place] [address] Dr. [place] Weber Influenza A H3 Not detected Normal NOT DETECTED [facility] Comment on above: Performed By: #### R SPLUS #### [facility] [address] [place] [address] Dr. [place] Weber Influenza B Not detected Normal NOT DETECTED [facility] Comment on above: Performed By: #### R SPLUS #### [facility] [address] [place] [address] Dr. [place] Weber Metapneumovirus Not detected Normal NOT DETECTED [facility] Comment on above: Performed By: #### R SPLUS #### [facility] [address] [place] [address] Dr. [place] Weber Mycoplas. Pneumoniae Not detected Normal NOT DETECTED [facility] Comment on above: Performed By: #### R SPLUS #### [facility] [address] [place] [address] Dr. [place] Weber Parainfluenza 1 Not detected Normal NOT DETECTED [facility] Comment on above: Performed By: #### R SPLUS #### [facility] [address] [place] [address] Dr. Cuba Weber Parainfluenza 2 Not detected Normal NOT DETECTED [facility] Comment on above: Performed By: #### R SPLUS #### [facility] [address] [place] [address] Dr. Cuba Weber Parainfluenza 3 Not detected Normal NOT DETECTED [facility] Comment on above: Performed By: #### R SPLUS #### [facility] [address] [place] [address] Dr. Cuba Weber Parainfluenza 4 Not detected Normal NOT DETECTED [facility] Comment on above: Performed By: #### R SPLUS #### [facility] [address] [address] [address] Cuba Weber Rhino/Enterovirus Not detected Normal NOT DETECTED [facility] Comment on above: Performed By: #### R SPLUS #### [facility] [address] [place] [address] Dr. Cuba Weber RP2 Header 1 RESPIRATORY PANEL: VIRUSES Normal [facility] Comment on above: Performed By: #### R SPLUS #### [facility] [address] [address] [address] Cuba Weber RP2 Header 2 RESPIRATORY PANEL: BACTERIA Normal [facility] Comment on above: Performed By: #### R SPLUS #### [facility] [address] [place] [address] Dr. Cuba Weber RSV Not detected Normal NOT DETECTED [facility] Comment on above: Performed By: #### R SPLUS #### [facility] [address] [address] [address] Cuba Weber SARS-CoV-2 (COVID-19) RNA ROSSANA+probe Ql (Unsp spec) Not detected Normal NOT DETECTED [facility] Comment on above: Performed By: #### R SPLUS #### [facility] [address] [place] [address] Dr. Cuba Weber TROPONIN, HIGH SENSITIVITYon 07-19-2022 HSTROP 42.9 pg/mL Normal 4.0-76.1 [facility] Comment on above: Result Comment: CUT- OFF POINTS HAVE BEEN ESTABLISHED BASED ON THE FOURTH UNIVERSAL DEFINITIONS OF MYOCARDIAL INFARCTION. THE UPPER REFERENCE LIMIT (URL) OF TROPONIN, DEFINED THE 99TH PERCENTILE OF cTnI DISTRIBUTION IN A REFERENCE POPULATION, HAS BEEN CONFIRMED THE DECISION THRESHOLD FOR DC DIAGNOSIS. Performed By: #### B MP, HSTROPN ####[facility] [address] [address]Dr. Cuba Weber XR CHEST 1 Von 07-19-2022 XR CHEST 1 V EXAMINATION: XR CHEST 1 V HISTORY: Asthenia ; hypotension, abdominal pain, coffee-ground emesis COMPARISON: XR chest 05/01/2022 FINDINGS: LUNGS: No significant pulmonary parenchymal abnormalities. VASCULATURE: No increased pulmonary vasculature. PLEURA: No pneumothorax, effusion, or pleural thickening. CARDIAC: No cardiomegaly or cardiac silhouette abnormality. MEDIASTINUM: No visible mass or adenopathy. BONES: Mechanical fusion of the mid cervical spine. OTHER: Negative. IMPRESSION: 1. No acute cardiopulmonary process or significant chronic interstitial changes. Electronically authenticated by: MINERVA REN Date: 2022-07-19 12:00 Normal [facility] [employer] 06-03-2022 Forms [id number] #[id number]:127 Normal [facility] ECHOCARDIO M/2D COMPLETEon 0 05-10-2022 ECHOCARDIO M/2D COMPLETE Patient: FEDE GUERRA Exam Date: 05/10/2022 : 1955 Gender:M Ordering : YAZMIN CHILEL Admission #: [id number] Family : Order #: [id number] CLICK HERE TO VIEW EXAM ECHOCARDIOGRAM REPORT PROCEDURE: CARDIO PULMONARY ECHOCARDIO M/2D COMP INDICATIONS: Abnormal EKG pre op COMPARISON: None. DESCRIPTION: COMPLETE ECHOCARDIOGRAM Real-time transthoracic echocardiography with 2D, M-mode, spectral and color flow Doppler performed. QUALITY: Technical quality was adequate. LEFT VENTRICLE: Normal chamber size. Mild concentric left ventricular hypertrophy. LV EF: Global left ventricular systolic function is normal. Calculated left ventricular ejection fraction is 57% DIASTOLIC: Normal diastolic function. ATRIAL SEPTUM: Inadequately seen. LEFT ATRIUM: Normal chamber size. RIGHT ATRIUM: Normal chamber size. RIGHT VENTRICLE: Normal chamber size. Normal right ventricular systolic function. TRICUSPID VALVE: Normal mobility and thickness. No stenosis with trivial regurgitation. No evidence of pulmonary hypertension. MITRAL VALVE: Normal mobility and thickness. No mitral valve prolapse. No evidence of mitral valve stenosis. There is no mitral annular calcification. Trivial mitral regurgitation. AORTIC VALVE: Normal trileaflet appearance. No visible sclerosis. Normal leaflet mobility. No evidence of aortic valve stenosis. Trivial aortic regurgitation. AORTIC ROOT: Normal diameter and appearance. PULMONIC VALVE: Normal thickness and mobility. No stenosis. Trivial regurgitation. PERICARDIUM: No evidence of pericardial effusion. IVC: Collapses with inspirations. Normal size CONCLUSION: Global left ventricular systolic function is normal; visually estimated ejection fraction is 55 to 60%. No wall motion abnormalities. Mild left ventricular hypertrophy. Right ventricle is normal in size and systolic function. No significant valvular abnormalities. Adult Echocardiography Procedure Report Left Ventricle LVEDD (3.7 - 5.6 cm): 4.52 cm LVESD (2.2 - 4.0 cm): 3.21 cm LVIVS thickness (0.6 - 1.2 cm): 1.34 cm LVPW thickness (0.5 - 1.0 cm): 1.31 cm e': 0.12 m/s E - e': 4.78 LVOT Max Gradient: 2.38 mm[Hg] Peak Velocity (LVOT): 0.77 m/s Mean Velocity (LVOT): 0.51 m/s LVOT Diameter 2.06 cm Left Ventricular Ejection Fraction: 55.73 %, 55.73 % Left Atrium LA Volume Index (2D A2C): 65.36 ml, 65.36 ml Left Atrium Systolic Dimension: 3.77 cm Mitral Valve MV E to A Ratio: 0.69 Mitral Valve A-Wave Peak Velocity: 0.85 m/s Mitral Valve E-Wave Peak Velocity: 0.59 m/s Right Ventricle RV Internal Diastolic Dimension: 3.04 cm Aorta AO Root Diam: 3.50 cm Aortic Valve AoV Area (Peak Mary): 2.62 cm2, 2.62 cm2 AoV Area (VTI): 2.59 cm2, 2.59 cm2 Peak Velocity(Antegrade Flow): 0.98 m/s Peak Gradient(Antegrade Flow): 3.84 mm[Hg] Mean Velocity(Antegrade Flow): 0.66 m/s Mean Gradient(Antegrade Flow): 1.97 mm[Hg] Velocity Time Integral: 21.73 cm Tricuspid Valve Peak Velocity (Regurgitant Flow): 0.85 m/s, 1.23 m/s, 1.28 m/s Peak Velocity: 0.48 m/s Pulmonic Valve Mean Gradient: 1.00 mm[Hg] Mean Velocity: 0.47 m/s Peak Velocity: 0.72 m/s, 0.86 m/s Peak Gradient: 2.05 mm[Hg], 2.96 mm[Hg] Right Atrium Right Atrium Systolic Pressure: 55.71 ml, 55.71 ml Dictated by: Tash Vera M.D. on 05/11/2022 at 08:19 Approved by: Tash Vera M.D. on 05/11/2022 at 08:22 Normal [facility] NM STRESS/REST MULTIon 05-10 NM STRESS/REST MULTI Patient: FEDE GUERRA Exam Date: 05/10/2022 : 1955 Gender:M Ordering : YAZMIN CHILEL Admission #: [id number] Family : Order #: [id number] CLICK HERE TO VIEW EXAM RADIOLOGY REPORT PROCEDURE: RADIONUCLIDE IMAGING STRESS/REST MULTI COMPARISON: None. INDICATIONS: Preoperative cardiovascular examination TECHNIQUE: Exam Description: Stress/Rest one day protocol gated SPECT Rest Imagin.5 mCi Tc-99m Cardiolite IV on 05/10/2022 Stress Imaging 29.9 mCi Tc-99m Cardiolite IV on 05/10/2022 Exercise Protocol: 0.4 mg Lexiscan given IV Heart Rate (bpm): Rest: 82 Max: 106 PMHR: 69 Blood Pressure: Rest: 136/80 Max: 136/80 Symptoms: Rest and peak stress ECG findings were normal and the exercise portion of the study was normal per attending physician Dr. Vera . For more details please see separate cardiac stress test report. FINDINGS: QUALITY OF STUDY: Good. PERFUSION DEFECT: LOCATION: Basal inferior. Mid-inferior. SIZE: Small (1-2 segments). SEVERITY: Moderate. TYPE: Persistent. WALL MOTION: Normal. LV SIZE: Normal. 95 mL. TID / TCD: None; 0.9 LVEF: Normal. Calculated EF 62%. SUMMARY: Myocardial perfusion imaging study has ABNORMAL findings. CONCLUSION: 1. Moderate-sized area mildly decreased uptake in the inferior wall with no evidence of reversible ischemia 2. Normal exercise test Dictated by: Jacqueline Evangelista MD on 05/12/2022 at 06:05 Approved by: Jacqueline Evangelista MD on 05/12/2022 at 06:07 Normal [facility] [place] CARDIAC ERIKA ADMITon 023 CK [Catalytic activity/Vol] 88 U/L Normal 39-308 [facility] Comment on above: Performed By: #### L ACT #### [facility] [place] [facility] [address] [place] [address] Dr. Cuba Weber CK.MB [Mass/Vol] ng/mL Normal <=3.60 [facility] Comment on above: Performed By: #### L ACT #### [facility] [place] [facility] [address] [place] [address] Dr. Cuba Weber HSTROP 5.9 pg/mL Normal 4.0-76.1 [facility] [place] Comment on above: Result Comment: CUT- OFF POINTS HAVE BEEN ESTABLISHED BASED ON THE FOURTH UNIVERSAL DEFINITIONS OF MYOCARDIAL INFARCTION. THE UPPER REFERENCE LIMIT (URL) OF TROPONIN, DEFINED THE 99TH PERCENTILE OF cTnI DISTRIBUTION IN A REFERENCE POPULATION, HAS BEEN CONFIRMED THE DECISION THRESHOLD FOR DC DIAGNOSIS. Performed By: #### L ACT #### [facility] [place] [facility] [address] [place] [address] Dr. Cuba Weber MOISÉS 46 ng/mL Normal 16-96 [facility] [place] Comment on above: Performed By: #### L ACT #### [facility] [place] [facility] [address] [place] [address] Dr. Cuba Weber CBC AUTO DIFFon 05-01-2022 BASO # 0.0 103/ul Normal 0.0-0.1 [facility] Comment on above: Performed By: #### R SPLUS #### [facility] [place] [facility] [address] [place] [address] Dr. Cuba Weber Basophils/100 WBC (Bld) 1.1 % Normal 0.2-2.0 [facility] Comment on above: Performed By: #### R SPLUS #### [facility] [place] [facility] [address] [place] [address] Dr. Cuba Weber EO # 0.2 103/ul Normal 0.0-0.7 [facility] Comment on above: Performed By: #### R SPLUS #### [facility] [place] [facility] [address] [place] [address] Dr. Cuba Weber Eosinophils/100 WBC (Bld) 6.4 % Normal 0.9-7.0 [facility] Comment on above: Performed By: #### R SPLUS #### [facility] [place] [facility] [address] [place] [address] Dr. Cuba Weber Erythrocyte distribution width (RBC) [Ratio] 13.3 % Normal 11.0-15.0 [facility] Comment on above: Performed By: #### R SPLUS #### [facility] [place] [facility] [address] [place] [address] Dr. Cuba Weber Hematocrit (Bld) [Volume fraction] 43.5 % Normal 42.0-54.0 [facility] Comment on above: Performed By: #### R SPLUS #### [facility] [place] [facility] [address] [place] [address] Dr. Cuba Weber Hemoglobin (Bld) [Mass/Vol] 13.5 g/dL Critically low 14.0-18.0 [facility] Comment on above: Performed By: #### R SPLUS #### [facility] [place] [facility] [address] [place] [address] Dr. Cuba Weber IG # 0.01 10e3/ul Normal 0.00-0.03 [facility] Comment on above: Performed By: #### R SPLUS #### [facility] [place] [facility] [address] [place] [address] Dr. Cuba Weber IG % 0.3 % Normal 0.0-0.5 [facility] Comment on above: Performed By: #### R SPLUS #### [facility] [place] [facility] [address] [place] [address] Dr. Cuba Weber LYMPH # 1.5 103/ul Normal 1.2-3.8 [facility] Comment on above: Performed By: #### R SPLUS #### [facility] [place] [facility] [address] [place] [address] Dr. Cuba Weber Lymphocytes/100 WBC (Bld) 40.1 % Normal 20.5-60.0 [facility] [place] Comment on above: Performed By: #### R SPLUS #### [facility] [place] [facility] [address] [place] [address] Dr. Cuba Weber MANUAL DIFF REQ NO Normal [facility] Comment on above: Performed By: #### R SPLUS #### [facility] [place] [facility] [address] [place] [address] Dr. Cuba Weber MCH (RBC) [Entitic mass] 28.0 pg Normal 25.9-34.0 [facility] Comment on above: Performed By: #### R SPLUS #### [facility] [place] [facility] [address] [place] [address] Dr. Cuba Weber MCHC (RBC) [Mass/Vol] 31.0 g/dL Normal 29.9-35.2 [facility] Comment on above: Performed By: #### R SPLUS #### [facility] [place] [facility] [address] [place] [address] Dr. Cuba Weber MCV (RBC) [Entitic vol] 90.2 fL Normal 80.0-94.0 [facility] Comment on above: Performed By: #### R SPLUS #### [facility] [place] [facility] [address] [place] [address] Dr. Cuba Weber MONO # 0.4 103/ul Normal 0.3-0.8 [facility] Comment on above: Performed By: #### R SPLUS #### [facility] [place] [facility] [address] [place] [address] Dr. Cuba Weber Monocytes/100 WBC (Bld) 11.9 % Normal 1.7-12.0 [facility] Comment on above: Performed By: #### R SPLUS #### [facility] [place] [facility] [address] [place] [address] Dr. Cuba Weber NEUT # 1.5 103/ul Normal 1.4-6.5 [facility] Comment on above: Performed By: #### R SPLUS #### [facility] [place] [facility] [address] [place] [address] Dr. Cuba Weber Neutrophils/100 WBC (Bld) 40.2 % Critically low 43.0-75.0 [facility] Comment on above: Performed By: #### R SPLUS #### [facility] [place] [facility] [address] [place] [address] Dr. Cuba Weber Platelet mean volume (Bld) [Entitic vol] 9.5 fL Normal 9.5-13.5 [facility] Comment on above: Performed By: #### R SPLUS #### [facility] [place] [facility] [address] [place] [address] Dr. Cuba Weber PLT 239 103/ul Normal 150-450 [facility] Comment on above: Performed By: #### R SPLUS #### [facility] [place] [facility] [address] [place] [address] Dr. Cuba Weber RBC 4.82 106/ul Normal 4.70-6.10 [facility] Comment on above: Performed By: #### R SPLUS #### [facility] [place] [facility] [address] [place] [address] Dr. Cuba Weber WBC 3.6 103/ul Critically low 4.0-11.0 [facility] Comment on above: Performed By: #### R SPLUS #### [facility] [place] [facility] [address] [place] [address] Dr. Cuba Weber PROF 14(COMP METB)on 023 Albumin [Mass/Vol] 3.7 g/dL Normal 3.4-5.0 [facility] Comment on above: Performed By: #### L ACT #### [facility] [place] [facility] [address] [place] [address] Dr. Cuba Weber Albumin/Globulin [Mass ratio] 0.9 {ratio} Normal [facility] Comment on above: Performed By: #### L ACT #### [facility] [place] [facility] [address] [place] [address] Dr. Cuba Weber ALP [Catalytic activity/Vol] 91 U/L Normal 46-116 [facility] Comment on above: Performed By: #### L ACT #### [facility] [place] [facility] [address] [place] [address] Dr. Cuba Weber ALT [Catalytic activity/Vol] 20 U/L Normal 16-63 [facility] Comment on above: Performed By: #### L ACT #### [facility] [place] [facility] [address] [place] [address] Dr. Cuba Weber Anion gap [Moles/Vol] 11.3 mmol/L Normal [facility] Comment on above: Performed By: #### L ACT #### [facility] [place] [facility] [address] [place] [address] Dr. Cuba Weber AST [Catalytic activity/Vol] 22 U/L Normal 15-37 [facility] Comment on above: Performed By: #### L ACT #### [facility] [place] [facility] [address] [place] [address] Dr. Cuba Weber Bilirubin [Mass/Vol] 0.6 mg/dL Normal 0.2-1.0 [facility] Comment on above: Performed By: #### L ACT #### [facility] [place] [facility] [address] [address] [address] Cuba Weber Calcium [Mass/Vol] 9.7 mg/dL Normal 8.5-10.1 [facility] Comment on above: Performed By: #### L ACT #### [facility] [place] [facility] [address] [place] [address] Dr. Cuba Weber Chloride [Moles/Vol] 107 mmol/L Normal 98-107 [facility] Comment on above: Performed By: #### L ACT #### [facility] [place] [facility] [address] [place] [address] Dr. Cuba Weber CO2 [Moles/Vol] 29.0 mmol/L Normal 21.0-32.0 [facility] Comment on above: Performed By: #### L ACT #### [facility] [place] [facility] [address] [place] [address] Dr. Cuba Weber Creatinine [Mass/Vol] 0.79 mg/dL Normal 0.70-1.30 [facility] Comment on above: Performed By: #### L ACT #### [facility] [place] [facility] [address] [place] [address] Dr. Cuba Weber EGFR-AF ITALIAN >60 Normal >=60 [facility] Comment on above: Performed By: #### L ACT #### [facility] [place] [facility] [address] [place] [address] Dr. Cuba Weber EGFR-NON AF ITALIAN >60 Normal >=60 [facility] Comment on above: Performed By: #### L ACT #### [facility] [place] [facility] [address] [place] [address] Dr. Cuba Weber Globulin (S) [Mass/Vol] 4.0 g/dL Normal [facility] Comment on above: Performed By: #### L ACT #### [facility] [place] [facility] [address] [address] [address] Cuba Weber Glucose [Mass/Vol] 97 mg/dL Normal 74-106 [facility] Comment on above: Performed By: #### L ACT #### [facility] [place] [facility] [address] [address] [address] Cuba Weber Potassium [Moles/Vol] 4.3 mmol/L Normal 3.5-5.1 [facility] Comment on above: Performed By: #### L ACT #### [facility] [place] [facility] [address] [address] [address] Cuba Weber Protein [Mass/Vol] 7.7 g/dL Normal 6.4-8.2 [facility] Comment on above: Performed By: #### L ACT #### [facility] [place] [facility] [address] [place] [address] Dr. Cuba Weber Sodium [Moles/Vol] 143 mmol/L Normal 136-145 [facility] Comment on above: Performed By: #### L ACT #### [facility] [place] [facility] [address] [address] [address] Cuba Weber Urea nitrogen [Mass/Vol] 11.0 mg/dL Normal 7.0-18.0 [facility] Comment on above: Performed By: #### L ACT #### [facility] [place] [facility] [address] [place] [address] Dr. Cuba Weber Urea nitrogen/Creatinine [Mass ratio] 13.9 mg/mg Normal [facility] Comment on above: Performed By: #### L ACT #### [facility] [place] [facility] [address] [address] [address] Cuba Weber TROPONIN, HIGH SENSITIVITYon 05-01-2022 HSTROP <4.0 Normal 4.0-76.1 [facility] Comment on above: Result Comment: CUT- OFF POINTS HAVE BEEN ESTABLISHED BASED ON THE FOURTH UNIVERSAL DEFINITIONS OF MYOCARDIAL INFARCTION. THE UPPER REFERENCE LIMIT (URL) OF TROPONIN, DEFINED THE 99TH PERCENTILE OF cTnI DISTRIBUTION IN A REFERENCE POPULATION, HAS BEEN CONFIRMED THE DECISION THRESHOLD FOR DC DIAGNOSIS. Performed By: #### H STROPN ####[facility] [place] [address] [place], [place] [address]HxGlory Weber XR CHEST 1 Von 05-01-2022 XR CHEST 1 V EXAM: XR CHEST 1 V HISTORY: Chest pain and tightness for several weeks COMPARISON: None. TECHNIQUE: AP semierect portable chest radiograph performed. FINDINGS: The trachea air column is within normal limits. The cardiac silhouette is normal size. The hilar shadows are unremarkable. Except for a couple foci of discoid atelectasis within the left lower chest, the lung diana are clear. There is no pneumothorax. The bony structures are osteopenic. There is no acute osseous abnormality. IMPRESSION: There are a couple small foci of discoid atelectasis within the left lower chest. There is otherwise no acute cardiopulmonary process. Electronically authenticated by: AUSTIN WHALEY Date: 2022-05-01 09:55 Normal [facility] Telemedicineon 04-23-2022 Telemedicine [id number] Lately,Fede Drew Sr. 1955 Date Provider Department Center 04/23/2022 3848-YAZMIN CHILEL [facility] No family history on file Level of Service:14122 [place] OFFICE/OUTPATIENT NEW MODERATE MDM 45-[address] [facility] Formson 04-21-2022 Forms [id number] #1.00CD:127 Normal [facility] ECG 12-Leadon 04-15-2022 ECG 12-Lead [id number] #1.00CD:127 Normal [facility] ECG 12-Lead [id number] #1.00CD:127 Normal [facility] ECG 12-Lead [id number] #1.00CD:127 Normal [facility] Formson 04-15-2022 Forms [id number] #1.00CD:127 Normal [facility] Lab Reportson 04-15-2022 Lab Reports [id number] #1.00CD:127 Normal [facility] Lab Reportson 04-12-2022 Lab Reports [id number] #1.00CD:127 Normal [facility] RAD - CT Reporton 04-12-2022 RAD - CT Report [id number] #1.00CD:127 Normal [facility] RAD - MISCon 04-12-2022 RAD - MISC [id number] #1.00CD:127 Normal [facility] CBC AUTO DIFFon 04-09-2022 BASO # 0.0 103/ul Normal 0.0-0.1 [facility] Comment on above: Performed By: #### C BC ####[facility] [place] [address] [address]Dr. Cuba Weber Basophils/100 WBC (Bld) 0.7 % Normal 0.2-2.0 [facility] Comment on above: Performed By: #### C BC ####[facility] [place] [address] [place], [place] [address]DrGlory Weber EO # 0.3 103/ul Normal 0.0-0.7 [facility] Comment on above: Performed By: #### C BC ####[facility] [place] [address] [address]Dr. Cuba Weber Eosinophils/100 WBC (Bld) 6.8 % Normal 0.9-7.0 [facility] Comment on above: Performed By: #### C BC ####[facility] [place] [address] [place], [place] [address]DrGlory Weber Erythrocyte distribution width (RBC) [Ratio] 13.2 % Normal 11.0-15.0 [facility] Comment on above: Performed By: #### C BC ####[facility] [place] [address] [place], [place] [address]DrGlory Weber Hematocrit (Bld) [Volume fraction] 42.5 % Normal 42.0-54.0 [facility] Comment on above: Performed By: #### C BC ####[facility] [place] [address] [address]Dr. Cuba Gus Hemoglobin (Bld) [Mass/Vol] 13.7 g/dL Critically low 14.0-18.0 [facility] Comment on above: Performed By: #### C BC ####[facility] [place] [address] [address]Dr. Sharynshasta Gus IG # 0.01 10e3/ul Normal 0.00-0.03 [facility] Comment on above: Performed By: #### C BC ####[facility] [place] [address] [place], [place] [address]Dr. Cuba Weber IG % 0.2 % Normal 0.0-0.5 [facility] Comment on above: Performed By: #### C BC ####[facility] [place] [address] [place], [place] [address]Dr. Cuba Weber LYMPH # 1.5 103/ul Normal 1.2-3.8 [facility] Comment on above: Performed By: #### C BC ####[facility] [place] [address] [place], [place] [address]DrGlory Weber Lymphocytes/100 WBC (Bld) 35.8 % Normal 20.5-60.0 [facility] Comment on above: Performed By: #### C BC ####[facility] [place] [address] [address]Dr. Cuba Weber MANUAL DIFF REQ NO Normal [facility] Comment on above: Performed By: #### C BC ####[facility] [place] [address] [id number] Weber MCH (RBC) [Entitic mass] 27.5 pg Normal 25.9-34.0 [facility] Comment on above: Performed By: #### C BC ####[facility] [place] [address] [address]Dr. Cuba Weber MCHC (RBC) [Mass/Vol] 32.2 g/dL Normal 29.9-35.2 [facility] Comment on above: Performed By: #### C BC ####[facility] [place] [address] [id number] Cuba Gus MCV (RBC) [Entitic vol] 85.3 fL Normal 80.0-94.0 [facility] Comment on above: Performed By: #### C BC ####[facility] [place] [address] [id number] Weber MONO # 0.5 103/ul Normal 0.3-0.8 [facility] Comment on above: Performed By: #### C BC ####[facility] [place] [address] [address]Dr. Cuba Weber Monocytes/100 WBC (Bld) 11.2 % Normal 1.7-12.0 [facility] Comment on above: Performed By: #### C BC ####[facility] [place] [address] [place], [place] [address]Dr. Cuba Weber NEUT # 1.9 103/ul Normal 1.4-6.5 [facility] Comment on above: Performed By: #### C BC ####[facility] [place] [address] [place], [place] [address]Dr. Cuba Weber Neutrophils/100 WBC (Bld) 45.3 % Normal 43.0-75.0 [facility] Comment on above: Performed By: #### C BC ####[facility] [place] [address] [address]Dr. Cuba Weber Platelet mean volume (Bld) [Entitic vol] 10.2 fL Normal 9.5-13.5 [facility] Comment on above: Performed By: #### C BC ####[facility] [place] [address] [id number]. Cuba Weber PLT 232 103/ul Normal 150-450 [facility] [place] Comment on above: Performed By: #### C BC ####[facility] [place] [address] [id number]. Cuba Weber RBC 4.98 106/ul Normal 4.70-6.10 [facility] Comment on above: Performed By: #### C BC ####[facility] [place] [address] [place], [place] [address]GjDr. Cuba Weber WBC 4.3 103/ul Normal 4.0-11.0 [facility] Comment on above: Performed By: #### C BC ####[facility] [place] [address] [place], [place] [address]PsDr. Cuba Weber Covid-19 PCR ([facility])on 03-28 SARS-CoV-2 (COVID-19) RNA ROSSANA+probe Ql (Unsp spec) Not detected Normal NOT DETECTED [facility] [place] Comment on above: Result Comment: This test is not yet approved or cleared by the [place] FDA. When there are no FDA-approved or cleared tests available, and other criteria are met, FDA can make tests available under an emergency access mechanism called an Emergency Use Authorization (EUA). The EUA for this test is supported by the [employer]'s (HHS's) declaration that circumstances exist to justify the emergency use of in vitro diagnostics for the detection and/or diagnosis of the virus that causes COVID-19. This EUA will remain in effect (meaning this test can be used) for the duration of the COVID-19 declaration justifying emergency of IVDs, unless it is terminated or revoked by FDA (after which the test may no longer be used). When diagnostic testing is negative, the possibility of a false negative should be considered in the context of a patient's recent exposures and the presence of clinical signs and symptoms consistent with SARS-CoV-2. Performed By: #### R SPLUS #### [facility] [place] [facility] [address] [place], [place] [address] Dr. Cuba Weber PROF CHEM 8 (BAS METB)on Anion gap [Moles/Vol] 14.1 mmol/L Normal [facility] Comment on above: Performed By: #### B MP ####[facility] [place] [address] [place], [place] [address]UrDr. Cuba Weber Calcium [Mass/Vol] 9.3 mg/dL Normal 8.5-10.1 [facility] Comment on above: Performed By: #### B MP ####[facility] [place] [address] [address]Dr. Cuba Weber Chloride [Moles/Vol] 106 mmol/L Normal 98-107 [facility] Comment on above: Performed By: #### B MP ####[facility] [place] [address] [address]Dr. Cuba Weber CO2 [Moles/Vol] 26.1 mmol/L Normal 21.0-32.0 [facility] Comment on above: Performed By: #### B MP ####[facility] [place] [address] [address]Dr. Cuba Weber Creatinine [Mass/Vol] 0.93 mg/dL Normal 0.70-1.30 [facility] Comment on above: Performed By: #### B MP ####[facility] [place] [address] [place], [place] [address]Dr. Cuba Weber EGFR-AF ITALIAN >60 Normal >=60 [facility] Comment on above: Performed By: #### B MP ####[facility] [place] [address] [place], [place] [address]Dr. Cuba Weber EGFR-NON AF ITALIAN >60 Normal >=60 [facility] Comment on above: Performed By: #### B MP ####[facility] [place] [address] [place], [place] [address]Dr. Cuba Weber Glucose [Mass/Vol] 111 mg/dL Critically high 74-106 [facility] Comment on above: Performed By: #### B MP ####[facility] [place] [address] [place], [place] [address]Dr. Cuba Weber Potassium [Moles/Vol] 4.0 mmol/L Normal 3.5-5.1 [facility] [place] Comment on above: Performed By: #### B MP ####[facility] [place] [address] [address]Dr. Sharynshasta Weber Sodium [Moles/Vol] 142 mmol/L Normal 136-145 [facility] Comment on above: Performed By: #### B MP ####[facility] [place] [address] [place], [place] [address]DhDr. Cuba Weber Urea nitrogen [Mass/Vol] 9.0 mg/dL Normal 7.0-18.0 [facility] Comment on above: Performed By: #### B MP ####[facility] [place] [address] [place], [place] [address]SoDr. Cuba Weber Urea nitrogen/Creatinine [Mass ratio] 9.6 mg/mg Normal [facility] Comment on above: Performed By: #### B MP ####[facility] [place] [address] [place], [place] [address]ThDr. Cuba Weber PROTIMEon 04-09-2022 INR Coag (PPP) [Relative time] 0.99 {INR} Normal [facility] [place] Comment on above: Performed By: #### P TT, PT #### [facility] [place] [facility] [address] [place] [address] Dr. Cuba Weebr INR GUIDELINES SEE BELOW Normal [facility] Comment on above: Result Comment: GRAZYNA RED INR: 2.0 - 3.0 CONDITIONS NOT LISTED BELOW 2.5 - 3.5 FOR PROSTHETIC HEART VALVE REPLACEMENT 2.5 - 3.5 RECURRENT THROMBOSIS Performed By: #### P TT, PT #### [facility] [place] [facility] [address] [address] [address] Cuba Weber PT Coag (PPP) [Time] 10.5 s Normal 9.0-11.6 [facility] Comment on above: Performed By: #### P TT, PT #### [facility] [place] [facility] [address] [place] [address] Dr. Cuba Weber PTTon 04-09-2022 aPTT Coag (Bld) [Time] 29.2 s Normal 22.3-36.2 Th [facility] Comment on above: Performed By: #### P TT, PT #### [facility] [place] Laboratory [address] [place] [address] Dr. Cuba Weber XR KUB 1 VIEWon 04-09-2022 XR KUB 1 VIEW EXAMINATION: XR KUB 1 VIEW HISTORY: Kidney stone , left flank pain COMPARISON: No relevant comparison available. FINDINGS: KIDNEY/URETER - RIGHT: 18 mm calcification projecting over right kidney. KIDNEY/URETER - LEFT: 10 mm calcification projecting over left kidney. PELVIS: No visible ureteral stones. Pelvic calcifications favor phleboliths or prostate calcifications. BOWEL: No abnormal dilation or deviation. BONES: No acute abnormality. OTHER: Negative. No abnormal gaseous collections. IMPRESSION: 1. Bilateral nephrolithiasis containing large stones. Electronically authenticated by: MINERVA REN Date: 2022-04-09 16:33 Normal [facility] Consent for Procedure/Surger yon 04-07-2022 Consent for Procedure/Surgery [id number] #[id number]:127 Normal [facility] Physician Referralon 023 Physician Referral [id number] #1.00CD:127 Normal [facility] Ambulatory Visit Summaryon 0 04-05-2022 Ambulatory Visit Summary LATELY FEDE Viki :1955 Visit Date:04/05/2022 Ambulatory Visit Instructions Your Diagnosis Ureterovesical junction (UVJ) obstruction UTI (urinary tract infection) Ureteral stone Tests Performed XR Abdomen 1 View -- Results Pending -- Please visit your patient portal for your results or contact your primary care physician. Your Care Team Attending Physician - MARCO A BUI, William Mondragon Primary Care Physician - MINERVA HILL MD Referring Physician - Robbi Quezada MD, V This Is Your Medications List cephalexin (Keflex 500 mg Cap) Contact prescribing physician if questions or concerns atorvastatin (atorvastatin 10 mg Tab) baclofen (baclofen 10 mg Tab) cholecalciferol (Vitamin D3 5000 intl units (125 mcg) oral tab) duloxetine (duloxetine 30 mg oral delayed release capsule) ferrous sulfate gabapentin (gabapentin 300 mg Cap) loratadine (loratadine 10 mg Tab) oxybutynin (oxybutynin 5 mg Tab) tamsulosin (tamsulosin 0.4 mg Cap) Procedures Performed Colonoscopy, Neck. Discharge Vitals Height 176 cm Height 69 in Weight 77.5 kg Weight 170.5 lb BMI 25.02 What to do next You Need to Schedule the Following Appointments Follow Up with MARCO A BUI, William Mondragon, URL When: Comments: sched laser litho and KUB Where: [facility] [address], [place] [address] [phone] Medications What How Much When Instructions New cephalexin (Keflex 500 mg Cap) 1 Capsules By Mouth Every 12 hours Pickup at [facility]/pharmacy #[id number] Unchanged atorvastatin (atorvastatin 10 mg Tab) 90 EA, TAKE 1 TABLET BY MOUTH EVERY DAY Contact prescribing physician if questions or concerns Unchanged baclofen (baclofen 10 mg Tab) 1 Tablets By Mouth 3 times a day Contact prescribing physician if questions or concerns Unchanged cholecalciferol (Vitamin D3 5000 intl units (125 mcg) oral tab) 90 EA, TAKE 1 TABLET BY MOUTH EVERY DAY Contact prescribing physician if questions or concerns Unchanged duloxetine (duloxetine 30 mg oral delayed release capsule) 30 EA, TAKE 1 CAPSULE BY MOUTH EVERY DAY FOR 30 DAYS Contact prescribing physician if questions or concerns Unchanged ferrous sulfate 300 Milligram By Mouth 3 times a day Contact prescribing physician if questions or concerns Unchanged gabapentin (gabapentin 300 mg Cap) 1 Capsules By Mouth 3 times a day Contact prescribing physician if questions or concerns Unchanged loratadine (loratadine 10 mg Tab) 90 EA, TAKE 1 TABLET (10 MG) BY MOUTH DAILY. Contact prescribing physician if questions or concerns Unchanged oxybutynin (oxybutynin 5 mg Tab) 60 EA, TAKE 1 TABLET BY MOUTH TWICE A DAY FOR 30 DAYS Contact prescribing physician if questions or concerns Unchanged tamsulosin (tamsulosin 0.4 mg Cap) 1 Capsules By Mouth Every day Contact prescribing physician if questions or concerns Pharmacy Information [facility]/pharmacy #[id number]: [address], [place] [phone] Allergies No Known Allergies Problems Ongoing - Any problem that you are currently receiving treatment for. Bilateral nephrolithiasis Cervical spinal cord injury without spinal bone injury Chronic hepatitis C Depression Distended bladder Dyslipidemia Flank pain Irritable bowel syndrome with diarrhea Muscle spasm Tetraplegia Ureteral stone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 Psychiatric/Behavior al: Negative for agitation. Physical Exam BP 132/87 Pulse 63 Temp (Src) 98.2 (Oral) Resp 12 Ht 5' 10 (1.78m) Wt 167 lb (75.8kg) SpO2 99% BMI 23.96 kg/(m2). O2 Therapy: Room Air Physical Exam Vitals signs and nursing note reviewed. Constitutional: General: He is not in acute distress. Appearance: He is well-developed. He is not diaphoretic. HENT: Head: Normocephalic and atraumatic. Mouth/Throat: Pharynx: No oropharyngeal exudate. Eyes: General: No scleral icterus. Right eye: No discharge. Left eye: No discharge. Conjunctiva/sclera: Conjunctivae normal. Pupils: Pupils are equal, round, and reactive to light. Neck: Musculoskeletal: Normal range of motion and neck supple. Trachea: No tracheal deviation. Cardiovascular: Rate and Rhythm: Normal rate and regular rhythm. Heart sounds: Normal heart sounds. No murmur. Pulmonary: Effort: Pulmonary effort is normal. No respiratory distress. Breath sounds: Normal breath sounds. No wheezing. Abdominal: Palpations: Abdomen is soft. There is no mass. Tenderness: There is no abdominal tenderness. Musculoskeletal: Normal range of motion. General: No tenderness. Lymphadenopathy: Cervical: No cervical adenopathy. Skin: General: Skin is warm and dry. Findings: No erythema. Neurological: Mental Status: He is alert. Comments: Quadriplegic Alert and oriented communicative answers questions appropriately Psychiatric: Behavior: Behavior normal. Diagnostic Testing ED Labs Ordered and Reviewed CBC + AUTO DIFF (AK,AV,EU,FV,HL,SOHAM,M M,SP) - Abnormal; Notable for the following components: Result Value Ref Range RBC 4.11 (*) 4.20 - 6.00 m/uL Hemoglobin 11.9 (*) 13.0 - 17.0 g/dL Hematocrit 36.7 (*) 39.0 - 51.0 % All other components within normal limits COMPREHENSIVE METABOLIC PANEL (AK,AV,EU,FV,HL,SOHAM,M M,SP) - Abnormal; Notable for the following components: Bilirubin, Total <0.2 (*) 0.2 - 1.3 mg/dL Glucose 120 (*) 74 - 99 mg/dL All other components within normal limits TROPONIN T (AK,EU,FV,HL,SOHAM,MM,S P) PROBNP N-TERMINAL (AK,AV,EU,FV,HL,SOHAM,M M,SP) MAGNESIUM BLOOD (AK,AV,EU,FV,HL,SOHAM,M M,SP) CT CHEST W IVCON PE Final Result IMPRESSION: No CT evidence of pulmonary embolism. Mild atelectasis Marzipan Molder: ENEIDA Transcribe Date/Time: Oct 13 2019 12:38P Dictated by : ERIKA DAVIS MD This examination was interpreted and the report reviewed and electronically signed by: ERIKA DAVIS MD on Oct 13 2019 12:43PM EST XR CHEST 1V FRONTAL PORT Final Result IMPRESSION: Mild, somewhat linear opacity in the right lung base, appears improved from x-ray dated 10/09/2019. Could again reflect atelectasis although resolving infiltrate is also possible. Marzipan Molder: ENEIDA Transcribe Date/Time: Oct 13 2019 10:30A Dictated by : MILO SORTO MD This examination was interpreted and the report reviewed and electronically signed by: MIOL SORTO MD on Oct 13 2019 10:31AM EST Procedures ED Course / Clinical Impression Clinical Impressions as of Oct 12 1445 Chest pain, unspecified type SOB (shortness of breath) MDM / Disposition / Plan 64-year-old male history of quadriplegia is here today with chest pain that started about 9 AM this morning. Vitals; stable on arrival Labs; cbc, cmp, trop, bnp Imaging; cxr Ekg: NSR no ST elevation or depression Labs are nondiagnostic, troponin negative here. Nonischemic EKG. CT PE study was ordered due to quadriplegia and shortness of breath with acute onset chest pain, this was negative. Low concern for acute ACS however given patient's onset of symptoms, comorbidities would like to observe and observation for trending troponins. Patient refuses this. He understands the risks and benefits of this. He understands that he could potentially be having an early heart attack. He will still wishes to go home. Does not wish to stay in the hospital. Patient left AGAINST MEDICAL ADVICE. The patient have informed us that they wish to leave against medical advice. The reason given is that they don't want any further tests, don't wish hospitalization, think the problem will resolve on it's own and dont think the problem is serious . They have been informed of the risks of refusing further testing, admission, treatment and surgery including , permanent disability, undiagnosed serious problems and permanent organ dysfunction. They have expressed an understanding of these risks and they still wish to leave against medical advice. They have been informed that they can return to the emergency department at any time for further treatment or testing. They have been provided with appropriate warnings, followup instructions, and whatever treatment can be determined to be appropriate given their desire to leave against medical advice. Discussed plan and management with Dr. Pérez. SIGNATURE: DORIS Mo(Doris) KATARINA Bender 10/13/19 1446 Attending Note I have personally performed a face to face assessment of the patient and have reviewed the PA/SEASONING MIXER note. My locke findings include: History is a 64-year-old male with history of quadriplegia came in by EMS and was given nitroglycerin prior to arrival for chest pain this morning the cause of the shortness of breath he described it as sharp but then described also as pressure like he did get nitroglycerin and aspirin prior to arrival he is stating he is feeling better he denies fevers chills cough or vomiting. Or abdominal pain or diarrhea. Exam is quadriplegic male lying supine in the bed cardiovascular regular rate and rhythm awake alert and oriented ?3. Assessment/Plan are EKG shows sinus rhythm at [address] elevation, showed likely anteroseptal infarct due to Q waves stated it was old, otherwise nonspecific nondiagnostic ST-T wave changes. No previous to compare to. Given patient's story history we did scan him for ulnar embolism was well this was negative for acute PE troponin unremarkable, BMP shows no significant elevation there is no significant electrolyte abnormality CT chest shows no CT evidence of PE only mild atelectasis patient has no infectious symptoms. We recommended admission for further cardiac evaluation given symptom improvement with nitroglycerin and aspirin as well as the patient's history as well as EKG findings. Patient declined signing out AGAINST MEDICAL ADVICE and discussion of permanent neurologic disability and cardiac arrest were discussed he still signed out AMA. Signature: Shashi Pérez DO Date: 10/13/2019 Time: 2:54 PM Shashi Pérez 10/13/19 1458 Normal [facility] Magnesiumon 10-13-2019 Magnesium [Mass/Vol] 1.7 mg/dL Normal 1.7-2.3 [facility] NT Pro BNPon 10-13-2019 PRO B Natr Peptide 52 pg/mL Normal <125 [facility] PROGRESSon 10-13-2019 PROGRESS HNO ID: [id number] Author: NBA Bose (Ct) Service: Radiology Author Type: Clinical Research Management Associate Type: Progress Notes Filed: 10/13/2019 12:27 PM Note Text: RADIOLOGY SERVICE PROGRESS NOTE DATE OF SERVICE: October 13, 2019 TIME OF SERVICE: 1200 EVENT: INFILTRATE - Type of Infiltrate: Contrast (specify) - omni 350. Location: Left antecubital site. Skin Assessment: (1) Skin blanched; edema <1 inch in any direction; cool to touch; with or without pain. Symptoms: None. Physician notified: shashi pérez MD Treatment: Peripheral IV access discontinued and Cold compress. ADDITIONAL DATA: N/A SIGNATURE: NBA Bose PATIENT NAME: Fede Guerra DATE: October 13, 2019 TIME: 12:26 PM PAGER/CONTACT #: Normal [facility] PROGRESS HNO ID: [id number] Author: NBA Bose (Ct) Service: Radiology Author Type: Clinical Research Management Associate Type: Progress Notes Filed: 10/13/2019 12:26 PM Note Text: Radiology Service Progress Note PATIENT NAME: Fede Guerra DATE OF SERVICE: October 13, 2019 TIME: 12:26 PM PATIENT IDENTITY VERIFICATION COMPLETED USING TWO (2) IDENTIFIERS: Name and Date of confirmed by patient verbally and Name and Date of confirmed by identification band. FALL SCREENING: Has the patient had 2 falls in the last year or 1 fall with injury or currently using an Ambulatory Assistive Device (Walker, Cane, Wheelchair, Crutches, etc.)? Inpatient: Screened on floor PATIENT GENDER DATA: Male PATIENT RELEVANT IMPLANT DATA REVIEWED: Not Applicable RADIOLOGY DEPARTMENT: CT; Exam(s) Completed: PE Study PERIPHERAL IV DATA: Inpatient: see LDA documentation SIGNED BY: NBA Bose October 13, 2019 12:26 PM Normal [facility] PROGRESS HNO ID: [id number] Author: Pat Mijares (Rt) Service: Radiology Author Type: Clinical Research Management Associate Type: Progress Notes Filed: 10/13/2019 10:19 AM Note Text: Radiology Service Progress Note PATIENT NAME: Fede Guerra DATE OF SERVICE: October 13, 2019 TIME: 10:18 AM PATIENT IDENTITY VERIFICATION COMPLETED USING TWO (2) IDENTIFIERS: Name and Date of confirmed by patient verbally and Name and Date of confirmed by identification band. FALL SCREENING: Has the patient had 2 falls in the last year or 1 fall with injury or currently using an Ambulatory Assistive Device (Walker, Cane, Wheelchair, Crutches, etc.)? No PATIENT GENDER DATA: Male PATIENT RELEVANT IMPLANT DATA REVIEWED: Not Applicable RADIOLOGY DEPARTMENT: General X-ray: Exam(s) Completed: Chest X-Ray PERIPHERAL IV DATA: Not applicable SIGNED BY: David COLLINS(R) October 13, 2019 10:18 AM Normal [facility] Troponin Ton 10-13-2019 Troponin T.cardiac [Mass/Vol] ug/L Normal 0.000-0.029 [facility] XR CHEST 1V FRONTAL PORTon 0 10-13-2019 XR CHEST 1V FRONTAL PORT * * *Final Report* * * DATE OF EXAM: Oct 13 2019 10:17AM [id number] - XR CHEST 1V FRONTAL PORT / PROCEDURE REASON: Chest pain * * * * Physician Interpretation * * * * EXAMINATION: CHEST RADIOGRAPH (PORTABLE SINGLE VIEW AP) Exam Date/Time: 10/13/2019 10:17 AM CLINICAL HISTORY: Chest pain MQ: XCPR_5 Comparison: Chest x-ray 10/09/2019 RESULT: Lines, tubes, and devices: None Lungs and pleura: No pneumothorax or pleural effusions. Mild somewhat linear opacity in the right lung base is again seen, appears improved from prior study. Cardiomediastinal silhouette: Stable cardiomediastinal silhouette. Other: . IMPRESSION: Mild, somewhat linear opacity in the right lung base, appears improved from x-ray dated 10/09/2019. Could again reflect atelectasis although resolving infiltrate is also possible. Marzipan Molder: PSCB Transcribe Date/Time: Oct 13 2019 10:30A Dictated by : MILO SORTO MD This examination was interpreted and the report reviewed and electronically signed by: MILO SORTO MD on Oct 13 2019 10:31AM EST [id number] Normal [facility] EKG 12 Leadon 10-09-2019 Atrial Rate 57 BPM [facility] we[facility] energy[facility] [place] P [place] 76 degrees [facility], [place] P-R Interval 170 ms [facility], [place] Q-T Interval 400 ms [facility], [place] QRS Duration 92 ms [facility], [place] QTc Calculation (Bazett) 389 ms [facility] we[facility], [place] R [place] 51 degrees [facility] [place], [place] T [place] 45 degrees [facility], [place] Ventricular Rate 57 BPM [place], [place] Sinus bradycardia with sinus arrhythmia Septal infarct , age undetermined Abnormal ECG No previous ECGs available [place], [place] Samm, [employer] Incoming Ekg Results From [employer] [place] - 10/09/2019 12:35 PM EDT Sinus bradycardia with sinus arrhythmia Septal infarct , age undetermined Abnormal ECG No previous ECGs available [facility] [employer] [place], [place] POC Glucose Fingerstickon Glucose [Mass/Vol] 115 mg/dL High 75 - 110 mg/dL [facility], [place] Interpretation and review of laboratory results Abnormal [place], [place] Glucose [Mass/Vol] 132 mg/dL High 75 - 110 mg/dL [place] Interpretation and review of laboratory results Abnormal [place] Glucose [Mass/Vol] 120 mg/dL High 75 - 110 mg/dL [place] Interpretation and review of laboratory results Abnormal [place] BASIC METABOLIC PANELon Anion gap [Moles/Vol] 10 mmol/L 9 - 17 mmol/L [place] Bun/Cre Ratio NOT REPORTED [place], [place] Calcium [Mass/Vol] 8.4 mg/dL Low 8.6 - 10. 4 mg/dL [place] Chloride [Moles/Vol] 103 mmol/L 98 - 10 7 mmol/L [place] CO2 [Moles/Vol] 28 mmol/L 20 - 31 mmol/L [place] Creatinine [Mass/Vol] 0.67 mg/dL Low 0.7 - 1.2 mg/dL [place] GFR >60 >60 mL/min [place], [place] GFR Non- >60 >60 mL/min [place] GFR/1.73 sq M predicted among non-blacks MDRD (S/P/Bld) [Vol rate/Area] [place], [place] Comment on above: Average GFR for 60-6 9 years old: 85 mL/min/1.73sq m Chronic Kidney Disease: <60 mL/min/1.73sq m Kidney failure: <15 mL/min/1.73sq m eGFR calculated using average adult body mass. Additional eGFR calculator available at: http://www.[employer]/multiple_crcl_2012.htm GFR/1.73 sq M predicted among non-blacks MDRD (S/P/Bld) [Vol rate/Area] NOT REPORTED [place], [place] Glucose [Mass/Vol] 121 mg/dL High 70 - 99 mg/dL [place] Interpretation and review of laboratory results Abnormal [place] Potassium [Moles/Vol] 4.1 mmol/L 3.7 - 5.3 mmol/L [place] Sodium [Moles/Vol] 141 mmol/L 135 - 144 mmol/L [place] Urea nitrogen [Mass/Vol] 10 mg/dL 8 - 23 mg/dL [facility] [place], [place] Basic Metabolic Profon 09-27 (cont.) Normal [facility] Comment on above: Result Comment: Aver age GFR for 60-69 years old: 85 mL/min/1.73sq m Chronic Kidney Disease: <60 mL/min/1.73sq m Kidney failure: <15 mL/min/1.73sq m eGFR calculated using average adult body mass. Additional eGFR calculator available at: http://www.[employer]/multiple_crcl_2012.htm Performed By: #### T YS #### [facility] [employer] [address] [place] [id number] Health Advocate: Tre Ferrell MD Anion gap [Moles/Vol] 10 mmol/L Normal 9-17 [facility] [place] Comment on above: Performed By: #### T YS #### [address] [address] Health Advocate: Tre Ferrell MD Calcium [Mass/Vol] 8.4 mg/dL Low 8.6-10.4 [facility] Comment on above: Performed By: #### T YS #### [address] [address] Health Advocate: Tre Ferrell MD Chloride [Moles/Vol] 103 mmol/L Normal 98-107 [facility] Comment on above: Performed By: #### T YS #### [address] [address] Health Advocate: Tre Ferrell MD CO2 [Moles/Vol] 28 mmol/L Normal 20-31 [facility] Comment on above: Performed By: #### T YS #### [address] [address] Health Advocate: Tre Ferrell MD Creatinine [Mass/Vol] 0.67 mg/dL Low 0.70-1.20 [facility] [place] Comment on above: Performed By: #### T YS #### [address] [address] Health Advocate: Tre Ferrell MD GFR, Amer >60 Normal >60 [facility] Comment on above: Performed By: #### T YS #### [address] [address] Health Advocate: Tre Ferrell MD GFR,non Amer >60 Normal >60 [facility] Comment on above: Performed By: #### T YS #### [address] [address] Health Advocate: Tre Ferrell MD Glucose [Mass/Vol] 121 mg/dL High 70-99 [facility] Comment on above: Performed By: #### T YS #### [address] [address] Health Advocate: Tre Ferrell MD Potassium [Moles/Vol] 4.1 mmol/L Normal 3.7-5.3 [facility] [place] Comment on above: Performed By: #### T YS #### [address] [address] Health Advocate: Tre Ferrell MD Sodium [Moles/Vol] 141 mmol/L Normal 135-144 [facility] Comment on above: Performed By: #### T YS #### [address] [address] Health Advocate: Tre Ferrell MD Urea nitrogen [Mass/Vol] 10 mg/dL Normal 8-23 [facility] Comment on above: Performed By: #### T YS #### [address] [address] Health Advocate: Tre Ferrell MD BUN/CRE Ratio NOT REPORTED Normal 9-20 [facility] Comment on above: Performed By: #### T YS #### [address] [place] [address] Health Advocate: Tre Ferrell MD Staging: NOT REPORTED Normal [facility] Comment on above: Performed By: #### T YS #### [address] [address] Health Advocate: Tre Ferrell MD CBCon 09-28-2019 Erythrocyte distribution width (RBC) [Ratio] 12.7 % Normal 11.8-14.4 [facility] Comment on above: Performed By: #### T YS #### [address] [address] Health Advocate: Tre Ferrell MD Hematocrit (Bld) [Volume fraction] 32.0 % Low 40.7-50.3 [facility] Comment on above: Performed By: #### T YS #### [address] [address] Health Advocate: Tre Ferrell MD Hemoglobin (Bld) [Mass/Vol] 10.2 g/dL Low 13.0-17.0 [facility] Comment on above: Performed By: #### T YS #### [address] [address] Health Advocate: Tre Ferrell MD MCH (RBC) [Entitic mass] 29.7 pg Normal 25.2-33.5 [facility] Comment on above: Performed By: #### T YS #### [address] [address] Health Advocate: Tre Ferrell MD MCHC (RBC) [Mass/Vol] 31.9 g/dL Normal 28.4-34.8 [facility] [place] Comment on above: Performed By: #### T YS #### [address] [address] Health Advocate: Tre Ferrell MD MCV (RBC) [Entitic vol] 93.0 fL Normal 82.6-102.9 M [facility] Comment on above: Performed By: #### T YS #### [facility] [employer] [address] [place] [address] Health Advocate: Tre Ferrell MD NRBC Automated 0.0 per 100 WBC Normal 0.0 [facility] Comment on above: Performed By: #### T YS #### [address] [address] Health Advocate: Tre Ferrell MD Platelet mean volume (Bld) [Entitic vol] 10.4 fL Normal 8.1-13.5 [facility] Comment on above: Performed By: #### T YS #### [address] [address] Health Advocate: Tre Ferrell MD Platelets (Bld) [#/Vol] 173 10*3/uL Normal 138-453 [facility] Comment on above: Performed By: #### T YS #### [address] [address] [address] Health Advocate: Tre Ferrell MD RBC (Bld) [#/Vol] 3.44 10*6/uL Low 4.21-5.77 [facility] Comment on above: Performed By: #### T YS #### [address] [address] Health Advocate: Tre Ferrell MD WBC (Bld) [#/Vol] 7.2 10*3/uL Normal 3.5-11.3 [facility] Comment on above: Performed By: #### T YS #### [address] [address] Health Advocate: Tre Ferrell MD Erythrocyte distribution width (RBC) [Ratio] 12.7 % 11.8 - 14.4 % [place] Hematocrit (Bld) [Volume fraction] 32.0 % Low 40.7 - 50.3 % [place] Hemoglobin (Bld) [Mass/Vol] 10.2 g/dL Low 13 - 17 g/dL [place] Interpretation and review of laboratory results Abnormal [place] MCH (RBC) [Entitic mass] 29.7 pg 25.2 - 33.5 pg [place] MCHC (RBC) [Mass/Vol] 31.9 g/dL 28.4 - 34.8 g/dL [place] MCV (RBC) [Entitic vol] 93.0 fL 82.6 - 102.9 fL [place] Platelet mean volume (Bld) [Entitic vol] 10.4 fL 8.1 - 13.5 fL [place] Platelets (Bld) [#/Vol] 173 10*3/uL [place] RBC (Bld) [#/Vol] 3.44 10*6/uL Low 4.21 - 5.7 7 m/uL [place] WBC (Bld) [#/Vol] 7.2 10*3/uL [place] WBC (Bld) [#/Vol] 0.0 10*3/uL 0.0 per 10 0 WBC [place] MAGNESIUMon 09-28-2019 Magnesium [Mass/Vol] 1.9 mg/dL 1.6 - 2 .6 mg/dL [place] Magnesiumon 09-28-2019 Magnesium [Mass/Vol] 1.9 mg/dL Normal 1.6-2.6 [facility] Comment on above: Performed By: #### T YS #### [facility] [address] [place] [address] Health Advocate: Tre Ferrell MD PHOSPHORUSon 09-28-2019 Phosphate [Mass/Vol] 3.8 mg/dL 2.5 - 4 .5 mg/dL [place] POC Glucose Fingerstickon Glucose [Mass/Vol] 111 mg/dL High 75 - 110 mg/dL [place] Interpretation and review of laboratory results Abnormal [place] Glucose [Mass/Vol] 143 mg/dL High 75 - 110 mg/dL [place] Interpretation and review of laboratory results Abnormal [place] Glucose [Mass/Vol] 141 mg/dL High 75 - 110 mg/dL [place] Interpretation and review of laboratory results Abnormal [place] Glucose [Mass/Vol] 106 mg/dL 75 - 110 mg/dL [place] PROTIME-INRon 09-28-2019 INR Coag (PPP) [Relative time] 0.9 {INR} [place] Comment on above: Therapeutic Range: Moderate Anticoagulant Intensity: INR = 2.0-3.0 High Anticoagulant Intensity: INR = 2.5-3.5 PT Coag (PPP) [Time] 9.8 s [place], [place] PTon 09-28-2019 INR Coag (PPP) [Relative time] 0.9 {INR} Normal [facility] Comment on above: Result Comment: Therapeutic Range: Moderate Anticoagulant Intensity: INR = 2.0-3.0 High Anticoagulant Intensity: INR = 2.5-3.5 Performed By: #### T YS #### [facility] [address] [place] [address] Health Advocate: Tre Ferrell MD PT Coag (PPP) [Time] 9.8 s Normal 9.0-12.0 [facility] Comment on above: Performed By: #### T YS #### [facility] [address] [place] [address] Health Advocate: Tre Ferrell MD Phosphorus, Inorg.on 020 Phosphorus, Inorg. 3.8 mg/dL Normal 2.5-4.5 [facility] Comment on above: Performed By: #### T YS #### [facility] [address] [place] [address] Health Advocate: Tre Ferrell MD Basic Metab w/rfx MGon 09-26 (cont.) Normal [facility] Comment on above: Result Comment: Aver age GFR for 60-69 years old: 85 mL/min/1.73sq m Chronic Kidney Disease: <60 mL/min/1.73sq m Kidney failure: <15 mL/min/1.73sq m eGFR calculated using average adult body mass. Additional eGFR calculator available at: http://www.Smart Adventure/multiple_crcl_2012.htm Performed By: #### T YS #### [facility] [address] [place] [address] Health Advocate: Tre Ferrell MD Anion gap [Moles/Vol] 9 mmol/L Normal 9-17 [facility] Comment on above: Performed By: #### T YS #### [facility] [address] [place] [address] Health Advocate: Tre Ferrell MD Calcium [Mass/Vol] 8.1 mg/dL Low 8.6-10.4 [facility] Comment on above: Performed By: #### T YS #### [facility] [address] [place] [address] Health Advocate: Tre Ferrell MD Chloride [Moles/Vol] 106 mmol/L Normal 98-107 [facility] Comment on above: Performed By: #### T YS #### [facility] [address] [place] [address] Health Advocate: Tre Ferrell MD CO2 [Moles/Vol] 27 mmol/L Normal 20-31 [facility] Comment on above: Performed By: #### T YS #### [facility] [address] [place] [address] Health Advocate: Tre Ferrell MD Creatinine [Mass/Vol] 0.63 mg/dL Low 0.70-1.20 [facility] Comment on above: Performed By: #### T YS #### [facility] [address] [place] [address] Health Advocate: Tre Ferrell MD GFR, Amer >60 Normal >60 [facility] Comment on above: Performed By: #### T YS #### [address] [address] Health Advocate: Tre Ferrell MD GFR,non Amer >60 Normal >60 [facility] Comment on above: Performed By: #### T YS #### [address] [address] Health Advocate: Tre Ferrell MD Glucose [Mass/Vol] 108 mg/dL High 70-99 [facility] Comment on above: Performed By: #### T YS #### [address] [address] Health Advocate: Tre Ferrell MD Potassium [Moles/Vol] 3.9 mmol/L Normal 3.7-5.3 [facility] Comment on above: Performed By: #### T YS #### [address] [address] Health Advocate: Tre Ferrell MD Sodium [Moles/Vol] 142 mmol/L Normal 135-144 [facility] Comment on above: Performed By: #### T YS #### [address] [address] Health Advocate: Tre Ferrell MD Urea nitrogen [Mass/Vol] 10 mg/dL Normal 8- [facility] Comment on above: Performed By: #### T YS #### [address] [address] Health Advocate: Tre Ferrell MD BUN/CRE Ratio NOT REPORTED Normal 9-20 [facility] Comment on above: Performed By: #### T YS #### [address] [address] Health Advocate: Tre Ferrell MD Staging: NOT REPORTED Normal [facility] Comment on above: Performed By: #### T YS #### [facility] [address] [place] [address] Health Advocate: Tre Ferrell MD Basic Metabolic Panel w/ Ref kylee to MGon 09-27-2019 Anion gap [Moles/Vol] 9 mmol/L 9 - 17 mmol/L [place] Bun/Cre Ratio NOT REPORTED [place] Calcium [Mass/Vol] 8.1 mg/dL Low 8.6 - 10. 4 mg/dL [place] Chloride [Moles/Vol] 106 mmol/L 98 - 10 7 mmol/L [place] CO2 [Moles/Vol] 27 mmol/L 20 - 31 mmol/L [place] Creatinine [Mass/Vol] 0.63 mg/dL Low 0.7 - 1.2 mg/dL [place] GFR >60 >60 mL/min [place] GFR Non- >60 >60 mL/min [place] GFR/1.73 sq M predicted among non-blacks MDRD (S/P/Bld) [Vol rate/Area] NOT REPORTED [place] GFR/1.73 sq M predicted among non-blacks MDRD (S/P/Bld) [Vol rate/Area] [place] Comment on above: Average GFR for 60-6 9 years old: 85 mL/min/1.73sq m Chronic Kidney Disease: <60 mL/min/1.73sq m Kidney failure: <15 mL/min/1.73sq m eGFR calculated using average adult body mass. Additional eGFR calculator available at: http://www.[employer]io[employer]/multiple_crcl_2012.htm Glucose [Mass/Vol] 108 mg/dL High 70 - 99 mg/dL [place] Interpretation and review of laboratory results Abnormal [place] Potassium [Moles/Vol] 3.9 mmol/L 3.7 - 5.3 mmol/L [place] Sodium [Moles/Vol] 142 mmol/L 135 - 144 mmol/L [place] Urea nitrogen [Mass/Vol] 10 mg/dL 8 - 23 mg/dL [place] CBC WITH AUTO DIFFERENTIALon 09-27-2019 Basophils (Bld) [#/Vol] 10*3/uL M [place] Basophils/100 WBC (Bld) 0 % 0 - 2 % M [place] Differential Type NOT REPORTED [place] Eosinophils (Bld) [#/Vol] 0.15 10*3/uL [place] Eosinophils/100 WBC (Bld) 2 % 1 - 4 % [place] Erythrocyte distribution width (RBC) [Ratio] 13.1 % 11.8 - 14.4 % [place] Hematocrit (Bld) [Volume fraction] 30.9 % Low 40.7 - 50.3 % [place] Hemoglobin (Bld) [Mass/Vol] 9.7 g/dL Low 13 - 17 g/dL [place] Immature granulocytes (Bld) [#/Vol] 0 % 0 [place] Immature granulocytes (Bld) [#/Vol] 0.03 10*3/uL [place] Interpretation and review of laboratory results Abnormal [place] Lymphocytes (Bld) [#/Vol] 1.52 10*3/uL [place] Lymphocytes/100 WBC (Bld) 16 % Low 24 - 43 % [place] MCH (RBC) [Entitic mass] 29.0 pg 25.2 - 33.5 pg [place] MCHC (RBC) [Mass/Vol] 31.4 g/dL 28.4 - 34.8 g/dL [place] MCV (RBC) [Entitic vol] 92.5 fL 82.6 - 102.9 fL [place] Monocytes (Bld) [#/Vol] 0.93 10*3/uL [place] Monocytes/100 WBC (Bld) 10 % 3 - 12 % [place] Platelet mean volume (Bld) [Entitic vol] 10.4 fL 8.1 - 13.5 fL [place] Platelets (Bld) [#/Vol] 144 10*3/uL [place] Platelets (Bld) [#/Vol] NOT REPORTED [place] RBC (Bld) [#/Vol] 3.34 10*6/uL Low 4.21 - 5.7 7 m/uL [place] RBC morphology finding Nom (Bld) NOT REPORTED [place] Segmented neutrophils/100 WBC (Bld) 72 % High 36 - 65 % [place] Segs Absolute 6.64 [place] WBC (Bld) [#/Vol] 0.0 10*3/uL 0.0 per 10 0 WBC [place] WBC (Bld) [#/Vol] 9.3 10*3/uL [place] WBC Morphology NOT REPORTED [place] CBC with Diffon 09-27-2019 Abs. Basophil <0.03 Normal 0.00-0.20 [facility] Comment on above: Performed By: #### T YS #### [place] [address] Health Advocate: Tre Ferrell MD Abs.Imm.Granulocyte 0.03 k/uL Normal 0.00-0.30 [facility] Comment on above: Performed By: #### T YS #### [place] [id number] Health Advocate: Tre Ferrell MD Abs.Neutrophil (Seg) 6.64 k/uL Normal 1.50-8.10 [facility] Comment on above: Performed By: #### T YS #### [place] [id number] Health Advocate: Tre Ferrell MD Basophils/100 WBC (Bld) 0 % Normal 0-2 M [facility] Comment on above: Performed By: #### T YS #### [address] [address] Health Advocate: Tre Ferrell MD Eosinophils (Bld) [#/Vol] 0.15 10*3/uL Normal 0.00-0.44 [facility] Comment on above: Performed By: #### T YS #### [address] [address] Health Advocate: Tre Ferrell MD Eosinophils/100 WBC (Bld) 2 % Normal 1-4 [facility] Comment on above: Performed By: #### T YS #### [address] [address] Health Advocate: Tre Ferrell MD Erythrocyte distribution width (RBC) [Ratio] 13.1 % Normal 11.8-14.4 [facility] Comment on above: Performed By: #### T YS #### [place] [address] Health Advocate: Tre Ferrell MD Hematocrit (Bld) [Volume fraction] 30.9 % Low 40.7-50.3 [facility] Comment on above: Performed By: #### T YS #### [address] [address] Health Advocate: Tre Ferrell MD Hemoglobin (Bld) [Mass/Vol] 9.7 g/dL Low 13.0-17.0 [facility] Comment on above: Performed By: #### T YS #### [address] [address] Health Advocate: Tre Ferrell MD Immature granulocytes (Bld) [#/Vol] 0 % Normal 0 [facility] Comment on above: Performed By: #### T YS #### [address] [address] Health Advocate: Tre Ferrell MD Lymphocytes (Bld) [#/Vol] 1.52 10*3/uL Normal 1.10-3.70 [facility] Comment on above: Performed By: #### T YS #### [address] [address] Health Advocate: Tre Ferrell MD Lymphocytes/100 WBC (Bld) 16 % Low 24-43 [facility] Comment on above: Performed By: #### T YS #### [place] [address] Health Advocate: Tre Ferrell MD MCH (RBC) [Entitic mass] 29.0 pg Normal 25.2-33.5 [facility] Comment on above: Performed By: #### T YS #### [place] [address] Health Advocate: Tre Ferrell MD MCHC (RBC) [Mass/Vol] 31.4 g/dL Normal 28.4-34.8 [facility] Comment on above: Performed By: #### T YS #### [place] [address] Health Advocate: Tre Ferrell MD MCV (RBC) [Entitic vol] 92.5 fL Normal 82.6-102.9 [facility] Comment on above: Performed By: #### T YS #### [place] [address] Health Advocate: Tre Ferrell MD Monocytes (Bld) [#/Vol] 0.93 10*3/uL Normal 0.10-1.20 [facility] Comment on above: Performed By: #### T YS #### [address] [address] Health Advocate: Tre Ferrell MD Monocytes/100 WBC (Bld) 10 % Normal 3-12 M [facility] Comment on above: Performed By: #### T YS #### [address] [address] Health Advocate: Tre Ferrell MD Neutrophil (Seg) 72 % High 36-65 [facility] Comment on above: Performed By: #### T YS #### [address] [address] Health Advocate: Tre Ferrell MD NRBC Automated 0.0 per 100 WBC Normal 0.0 [facility] Comment on above: Performed By: #### T YS #### [address] [address] Health Advocate: Tre Ferrell MD Platelet mean volume (Bld) [Entitic vol] 10.4 fL Normal 8.1-13.5 [facility] Comment on above: Performed By: #### T YS #### [address] [address] Health Advocate: Tre Ferrell MD Platelets (Bld) [#/Vol] 144 10*3/uL Normal 138-453 [facility] Comment on above: Performed By: #### T YS #### [address] [address] Health Advocate: Tre Ferrell MD RBC (Bld) [#/Vol] 3.34 10*6/uL Low 4.21-5.77 [facility] Comment on above: Performed By: #### T YS #### [address] [address] Health Advocate: Tre Ferrell MD WBC (Bld) [#/Vol] 9.3 10*3/uL Normal 3.5-11.3 [facility] Comment on above: Performed By: #### T YS #### [address] [address] Health Advocate: Tre Ferrell MD Auto Diff Performed NOT REPORTED Normal [facility] Comment on above: Performed By: #### T YS #### [facility] [address] [place] [address] Health Advocate: Tre Ferrell MD Platelets (Bld) [#/Vol] NOT REPORTED Normal [facility] Comment on above: Performed By: #### T YS #### [facility] [place] [address] Health Advocate: Tre Ferrell MD RBC morphology finding Nom (Bld) NOT REPORTED Normal [facility] Comment on above: Performed By: #### T YS #### [facility] [address] [place] [address] Health Advocate: Tre Ferrell MD WBC Morphology NOT REPORTED Normal [facility] Comment on above: Performed By: #### T YS #### [facility] [address] [place] [address] Health Advocate: Tre Ferrell MD POC Glucose Fingerstickon Glucose [Mass/Vol] 151 mg/dL High 75 - 110 mg/dL [place] Interpretation and review of laboratory results Abnormal [place] Glucose [Mass/Vol] 93 mg/dL 75 - 110 mg/dL [place] XR CHEST PORTABLEon 09-27-19 20 XR CHEST PORTABLE EXAMINATION: ONE XRAY VIEW OF THE CHEST 09/27/2019 7:18 am COMPARISON: AP chest from 09/26/2019 HISTORY: ORDERING SYSTEM PROVIDED HISTORY: intubated TECHNOLOGIST PROVIDED HISTORY: intubated Reason for Exam: intubated Postop cervical fusion FINDINGS: [place] and cervical hardware again demonstrated; ETT has been removed. Enteric tube tip and side hole again project below the left hemidiaphragm. Overlying ECG monitor leads and gown snaps. Cardiomediastinal shadow stable and within normal limits for AP technique. Interval increased elevation right hemidiaphragm with some increased opacity medial right base. No large pleural effusion or pneumothorax. Bones unchanged. IMPRESSION: Interval extubation. Enteric tube stable. Elevation right hemidiaphragm with some opacity medial right base; consider atelectasis; aspiration/pneumonia should also be considered. Interpreted by: Karan Palomo MD Signed by: Karan Palomo MD 09/27/19 Final result Normal [facility] Interval extubation. Enteric tube stable. Elevation right hemidiaphragm with some opacity medial right base; consider atelectasis; aspiration/pneumonia should also be considered. [place] EXAMINATION: ONE XRAY VIEW OF THE CHEST 09/27/2019 7:18 am COMPARISON: AP chest from 09/26/2019 HISTORY: ORDERING SYSTEM PROVIDED HISTORY: intubated TECHNOLOGIST PROVIDED HISTORY: intubated Reason for Exam: intubated Postop cervical fusion FINDINGS: [place] and cervical hardware again demonstrated; ETT has been removed. Enteric tube tip and side hole again project below the left hemidiaphragm. Overlying ECG monitor leads and gown snaps. Cardiomediastinal shadow stable and within normal limits for AP technique. Interval increased elevation right hemidiaphragm with some increased opacity medial right base. No large pleural effusion or pneumothorax. Bones unchanged. [place] Samm, [facility] Incoming Radiant Results From [employer] - 09/27/2019 8:29 AM EDT EXAMINATION: ONE XRAY VIEW OF THE CHEST 09/27/2019 7:18 am COMPARISON: AP chest from 09/26/2019 HISTORY: ORDERING SYSTEM PROVIDED HISTORY: intubated TECHNOLOGIST PROVIDED HISTORY: intubated Reason for Exam: intubated Postop cervical fusion FINDINGS: [place] and cervical hardware again demonstrated; ETT has been removed. Enteric tube tip and side hole again project below the left hemidiaphragm. Overlying ECG monitor leads and gown snaps. Cardiomediastinal shadow stable and within normal limits for AP technique. Interval increased elevation right hemidiaphragm with some increased opacity medial right base. No large pleural effusion or pneumothorax. Bones unchanged. IMPRESSION: Interval extubation. Enteric tube stable. Elevation right hemidiaphragm with some opacity medial right base; consider atelectasis; aspiration/pneumonia should also be considered. [place] Arterial Blood Gas, POCon Mino Test NOT REPORTED [place] aPTT Coag (Bld) [Time] NOT REPORTED [place] FIO2 30.0 [place] Mode NOT REPORTED [place] Negative Base Excess, Art NOT REPORTED [place] O2 Device/Flow/% Adult Ventilator [place] Oxygen saturation in Blood 97 % 94 - 98 % [place] POC HCO3 31.2 mmol/L High 21 - 28 mmol/L [place] POC pCO2 49.1 High [place] POC pCO2 Temp NOT REPORTED mm Hg [place] POC pH 7.411 [place] POC pH Temp NOT REPORTED [place] POC PO2 88.2 [place] POC pO2 Temp NOT REPORTED mm Hg [place] Positive Base Excess, Art 6 High [place] Sample Site Arterial Line [place] TCO2 (calc), Art 33 mmol/L High 22 - 29 mmol/L [place] Mino Test NOT REPORTED [place], [place] aPTT Coag (Bld) [Time] NOT REPORTED [place] FIO2 30.0 [place] Mode NOT REPORTED [place] Negative Base Excess, Art NOT REPORTED [place] O2 Device/Flow/% Adult Ventilator [place] Oxygen saturation in Blood 98 % 94 - 98 % [place] POC HCO3 29.8 mmol/L High 21 - 28 mmol/L [place] POC pCO2 46.0 [place] POC pCO2 Temp NOT REPORTED mm Hg [place] POC pH 7.420 [place] POC pH Temp NOT REPORTED [place] POC PO2 112.3 High [place] POC pO2 Temp NOT REPORTED mm Hg [place] Positive Base Excess, Art 5 High [place] Sample Site Arterial Line [place] TCO2 (calc), Art 31 mmol/L High 22 - 29 mmol/L [place] Basic Metab w/rfx MGon 09-25 (cont.) Normal [facility] Comment on above: Result Comment: Aver age GFR for 60-69 years old: 85 mL/min/1.73sq m Chronic Kidney Disease: <60 mL/min/1.73sq m Kidney failure: <15 mL/min/1.73sq m eGFR calculated using average adult body mass. Additional eGFR calculator available at: http://www.[employer]/multiple_crcl_2012.htm Performed By: #### E RTPF #### [facility] [address] [place] [address] Health Advocate: Tre Ferrell MD Anion gap [Moles/Vol] 9 mmol/L Normal 9-17 [facility] Comment on above: Performed By: #### E RTPF #### [address] [address] Health Advocate: Tre Ferrell MD Calcium [Mass/Vol] 8.2 mg/dL Low 8.6-10.4 [facility] Comment on above: Performed By: #### E RTPF #### [facility] [address] [place] [address] Health Advocate: Tre Ferrell MD Chloride [Moles/Vol] 103 mmol/L Normal 98-107 [facility] Comment on above: Performed By: #### E RTPF #### [facility] [address] [place] [address] Health Advocate: Tre Ferrell MD CO2 [Moles/Vol] 26 mmol/L Normal 20-31 [facility] Comment on above: Performed By: #### E RTPF #### [facility] [address] [place] [address] Health Advocate: Tre Ferrell MD Creatinine [Mass/Vol] 0.60 mg/dL Low 0.70-1.20 [facility] Comment on above: Performed By: #### E RTPF #### [address] [address] Health Advocate: Tre Ferrell MD GFR, Amer >60 Normal >60 [facility] Comment on above: Performed By: #### E RTPF #### [address] [address] Health Advocate: Tre Ferrell MD GFR,non Amer >60 Normal >60 [facility] Comment on above: Performed By: #### E RTPF #### [address] [address] Health Advocate: Tre Ferrell MD Glucose [Mass/Vol] 158 mg/dL High 70-99 [facility] Comment on above: Performed By: #### E RTPF #### [address] [address] Health Advocate: Tre Ferrell MD Potassium [Moles/Vol] 4.0 mmol/L Normal 3.7-5.3 [facility] Comment on above: Performed By: #### E RTPF #### [address] [address] Health Advocate: Tre Ferrell MD Sodium [Moles/Vol] 138 mmol/L Normal 135-144 [facility] Comment on above: Performed By: #### E RTPF #### [address] [address] Health Advocate: Tre Ferrell MD Urea nitrogen [Mass/Vol] 10 mg/dL Normal 8-23 [facility] Comment on above: Performed By: #### E RTPF #### [address] [address] Health Advocate: Tre Ferrell MD BUN/CRE Ratio NOT REPORTED Normal 9-20 [facility] Comment on above: Performed By: #### E RTPF #### [facility] [address] [place] [address] Health Advocate: Tre Ferrell MD Staging: NOT REPORTED Normal [facility] Comment on above: Performed By: #### E RTPF #### [facility] [address] [place], [place] [id number] Health Advocate: Tre Ferrell MD Basic Metabolic Panel w/ Ref kylee to on 09-26-2019 Anion gap [Moles/Vol] 9 mmol/L 9 - 17 mmol/L [place] Bun/Cre Ratio NOT REPORTED [place] Calcium [Mass/Vol] 8.2 mg/dL Low 8.6 - 10. 4 mg/dL [place] Chloride [Moles/Vol] 103 mmol/L 98 - 10 7 mmol/L [place] CO2 [Moles/Vol] 26 mmol/L 20 - 31 mmol/L [place] Creatinine [Mass/Vol] 0.6 mg/dL Low 0.7 - 1.2 mg/dL [place] GFR >60 >60 mL/min [place] GFR Non- >60 >60 mL/min [place] GFR/1.73 sq M predicted among non-blacks MDRD (S/P/Bld) [Vol rate/Area] [place] Comment on above: Average GFR for 60-6 9 years old: 85 mL/min/1.73sq m Chronic Kidney Disease: <60 mL/min/1.73sq m Kidney failure: <15 mL/min/1.73sq m eGFR calculated using average adult body mass. Additional eGFR calculator available at: http://www.[employer]/multiple_crcl_2012.htm GFR/1.73 sq M predicted among non-blacks MDRD (S/P/Bld) [Vol rate/Area] NOT REPORTED [place] Glucose [Mass/Vol] 158 mg/dL High 70 - 99 mg/dL [place] Interpretation and review of laboratory results Abnormal [place] Potassium [Moles/Vol] 4.0 mmol/L 3.7 - 5.3 mmol/L [place] Sodium [Moles/Vol] 138 mmol/L 135 - 144 mmol/L [place] Urea nitrogen [Mass/Vol] 10 mg/dL 8 - 23 mg/dL [place] CBC WITH AUTO DIFFERENTIALon 09-26-2019 Basophils (Bld) [#/Vol] 0.03 10*3/uL [place] Basophils/100 WBC (Bld) 0 % 0 - 2 % M [place] Differential Type NOT REPORTED [place] Eosinophils (Bld) [#/Vol] 0.08 10*3/uL [place] Eosinophils/100 WBC (Bld) 1 % 1 - 4 % [place] Erythrocyte distribution width (RBC) [Ratio] 13.2 % 11.8 - 14.4 % [place] Hematocrit (Bld) [Volume fraction] 30.7 % Low 40.7 - 50.3 % [place] Hemoglobin (Bld) [Mass/Vol] 9.6 g/dL Low 13 - 17 g/dL [place] Immature granulocytes (Bld) [#/Vol] 0.04 10*3/uL [place] Immature granulocytes (Bld) [#/Vol] 1 % High 0 [place] Interpretation and review of laboratory results Abnormal [place] Lymphocytes (Bld) [#/Vol] 1.10 10*3/uL [place] Lymphocytes/100 WBC (Bld) 14 % Low 24 - 43 % [place] MCH (RBC) [Entitic mass] 29.2 pg 25.2 - 33.5 pg [place] MCHC (RBC) [Mass/Vol] 31.3 g/dL 28.4 - 34.8 g/dL [place] MCV (RBC) [Entitic vol] 93.3 fL 82.6 - 102.9 fL [place] Monocytes (Bld) [#/Vol] 0.81 10*3/uL [place] Monocytes/100 WBC (Bld) 10 % 3 - 12 % [place] Platelet mean volume (Bld) [Entitic vol] NOT REPORTED 8.1 - 13.5 fL [place] Platelets (Bld) [#/Vol] NOT REPORTED [place] Platelets (Bld) [#/Vol] See Reflexed IPF Result [place] RBC (Bld) [#/Vol] 3.29 10*6/uL Low 4.21 - 5.7 7 m/uL [place] RBC morphology finding Nom (Bld) NOT REPORTED [place] Segmented neutrophils/100 WBC (Bld) 74 % High 36 - 65 % [place] Segs Absolute 5.82 [place] WBC (Bld) [#/Vol] 7.9 10*3/uL [place] WBC (Bld) [#/Vol] 0.0 10*3/uL 0.0 per 10 0 WBC [place] WBC Morphology NOT REPORTED [place], [place] CBC with Diffon 09-26-2019 Abs. Basophil 0.03 k/uL Normal 0.00-0.20 [facility] Comment on above: Performed By: #### E RTPF #### [facility] [address] [place] [phone] Health Advocate: Tre Ferrell MD Abs.Imm.Granulocyte 0.04 k/uL Normal 0.00-0.30 [facility] Comment on above: Performed By: #### E RTPF #### [facility] [place] [address] Health Advocate: Tre Ferrell MD Abs.Neutrophil (Seg) 5.82 k/uL Normal 1.50-8.10 [facility] Comment on above: Performed By: #### E RTPF #### [facility] [address] [place] [id number] Health Advocate: Tre Ferrell MD Basophils/100 WBC (Bld) 0 % Normal 0-2 M [facility] Comment on above: Performed By: #### E RTPF #### [address] [address] Health Advocate: Tre Ferrell MD Eosinophils (Bld) [#/Vol] 0.08 10*3/uL Normal 0.00-0.44 [facility] Comment on above: Performed By: #### E RTPF #### [address] [address] Health Advocate: Tre Ferrell MD Eosinophils/100 WBC (Bld) 1 % Normal 1-4 [facility] Comment on above: Performed By: #### E RTPF #### [address] [address] Health Advocate: Tre Ferrell MD Erythrocyte distribution width (RBC) [Ratio] 13.2 % Normal 11.8-14.4 [facility] Comment on above: Performed By: #### E RTPF #### [address] [address] Health Advocate: Tre Ferrell MD Hematocrit (Bld) [Volume fraction] 30.7 % Low 40.7-50.3 [facility] Comment on above: Performed By: #### E RTPF #### [address] [address] Health Advocate: Tre Ferrell MD Hemoglobin (Bld) [Mass/Vol] 9.6 g/dL Low 13.0-17.0 [facility] Comment on above: Performed By: #### E RTPF #### [address] [address] Health Advocate: Tre Ferrell MD Immature granulocytes (Bld) [#/Vol] 1 % High 0 [facility] Comment on above: Performed By: #### E RTPF #### [place] [address] Health Advocate: Tre Ferrell MD Lymphocytes (Bld) [#/Vol] 1.10 10*3/uL Normal 1.10-3.70 [facility] Comment on above: Performed By: #### E RTPF #### [place] [address] Health Advocate: Tre Ferrell MD Lymphocytes/100 WBC (Bld) 14 % Low 24-43 [facility] Comment on above: Performed By: #### E RTPF #### [place] [address] Health Advocate: Tre Ferrell MD MCH (RBC) [Entitic mass] 29.2 pg Normal 25.2-33.5 [facility] Comment on above: Performed By: #### E RTPF #### [place] [address] Health Advocate: Tre Ferrell MD MCHC (RBC) [Mass/Vol] 31.3 g/dL Normal 28.4-34.8 [facility] Comment on above: Performed By: #### E RTPF #### [place] [address] Health Advocate: Tre Ferrell MD MCV (RBC) [Entitic vol] 93.3 fL Normal 82.6-102.9 M [facility] Comment on above: Performed By: #### E RTPF #### [place] [address] Health Advocate: Tre Ferrell MD Monocytes (Bld) [#/Vol] 0.81 10*3/uL Normal 0.10-1.20 [facility] Comment on above: Performed By: #### E RTPF #### [address] [address] Health Advocate: Tre Ferrell MD Monocytes/100 WBC (Bld) 10 % Normal 3-12 M [facility] Comment on above: Performed By: #### E RTPF #### [address] [address] Health Advocate: Tre Ferrell MD Neutrophil (Seg) 74 % High 36-65 [facility] Comment on above: Performed By: #### E RTPF #### [address] [address] Health Advocate: Tre Ferrell MD NRBC Automated 0.0 per 100 WBC Normal 0.0 [facility] Comment on above: Performed By: #### E RTPF #### [address] [address] Health Advocate: Tre Ferrell MD Platelets (Bld) [#/Vol] See Reflexed IPF Result Normal 138-453 [facility] Comment on above: Performed By: #### E RTPF #### [address] [address] Health Advocate: Tre Ferrell MD RBC (Bld) [#/Vol] 3.29 10*6/uL Low 4.21-5.77 [facility] Comment on above: Performed By: #### E RTPF #### [address] [address] Health Advocate: Tre Ferrell MD WBC (Bld) [#/Vol] 7.9 10*3/uL Normal 3.5-11.3 [facility] Comment on above: Performed By: #### E RTPF #### [address] [address] Health Advocate: Tre Ferrell MD Auto Diff Performed NOT REPORTED Normal [facility] Comment on above: Performed By: #### E RTPF #### [address] [address] Health Advocate: Tre Ferrell MD Platelet mean volume (Bld) [Entitic vol] NOT REPORTED Normal 8.1-13.5 [facility] Comment on above: Performed By: #### E RTPF #### [address] [address] Health Advocate: Tre Ferrell MD Platelets (Bld) [#/Vol] NOT REPORTED Normal [facility] Comment on above: Performed By: #### E RTPF #### [address] [address] Health Advocate: Tre Ferrell MD RBC morphology finding Nom (Bld) NOT REPORTED Normal [facility] Comment on above: Performed By: #### E RTPF #### [address] [address] Health Advocate: Tre Ferrell MD WBC Morphology NOT REPORTED Normal [facility] Comment on above: Performed By: #### E RTPF #### [address] [address] Health Advocate: Tre Ferrell MD Extubationon 09-26-2019 Braden Ziegler RCP 09/26/2019 6:36 PM Order obtained for extubation. SpO2 of 30 on 100% FiO2. Patient extubated and placed on 30% O2 via HFNC. Patient had mild cough that was productive of clear and white sputum. Extubation Well tolerated by patient.. Breath Sounds: clear BRADEN ZIEGLER 6:35 PM [place] Immature Platelet Fractionon 09-26-2019 Interpretation and review of laboratory results Abnormal [place] Platelet, Fluorescence [address] [place] Comment on above: ORDERED BY LAB Platelet, Immature Fraction 4.7 % 1.1 - 10.3 % [place] Comment on above: ORDERED BY LAB Lactic Acid, POCon 0 POC Lactic Acid 0.35 mmol/L Low 0.56 - 1.39 mmol/L [place] POC Lactic Acid 0.32 mmol/L Low 0.56 - 1.39 mmol/L [place] Otheron 09-26-2019 Interpretation and review of laboratory results Abnormal [place] Interpretation and review of laboratory results Abnormal [place] PLT, Immature Fract.on 09-25 Platelet, Fluoresc. 123 k/uL Low 138-453 [facility] Comment on above: Result Comment: ORDE RED BY LAB Performed By: #### E RTPF #### [facility] [address] [place], [place] [id number] Health Advocate: Tre Ferrell MD PLT, Immature Fract. 4.7 % Normal 1.1-10.3 [facility] Comment on above: Result Comment: ORDE RED BY LAB Performed By: #### E RTPF #### [facility] [address] [place], [place] [phone] Health Advocate: Tre Ferrell MD POC Glucose Fingerstickon Glucose [Mass/Vol] 88 mg/dL 75 - 110 mg/dL [place] Glucose [Mass/Vol] 122 mg/dL High 75 - 110 mg/dL [place] Interpretation and review of laboratory results Abnormal [place] Glucose [Mass/Vol] 124 mg/dL High 75 - 110 mg/dL [place] Interpretation and review of laboratory results Abnormal [place] POCT Glucoseon 09-26-2019 Glucose [Mass/Vol] 130 mg/dL High 74 - 100 mg/dL [place] Glucose [Mass/Vol] 156 mg/dL High 74 - 100 mg/dL [place] XR CHEST PORTABLEon 09-26-19 20 XR CHEST PORTABLE EXAMINATION: ONE XRAY VIEW OF THE CHEST 09/26/2019 9:39 am COMPARISON: Chest radiograph performed 09/24/2019. HISTORY: ORDERING SYSTEM PROVIDED HISTORY: intubated TECHNOLOGIST PROVIDED HISTORY: intubated FINDINGS: There is no acute consolidation or effusion. There is no pneumothorax. The mediastinal structures are unremarkable. The upper abdomen is unremarkable. The extrathoracic soft tissues are unremarkable. There is an endotracheal tube with the tip in the midtrachea. There is a gastric tube and the tip is not visualized. IMPRESSION: No acute cardiopulmonary process. Stable support tubes. Interpreted by: Dewayne Lopez MD Signed by: Dewayne Lopez MD 09/26/19 Final result Normal [facility] No acute cardiopulmonary process. Stable support tubes. [place], [place] Samm, Mhpn Incoming Radiant Results From [employer] - 09/26/2019 10:01 AM EDT EXAMINATION: ONE XRAY VIEW OF THE CHEST 09/26/2019 9:39 am COMPARISON: Chest radiograph performed 09/24/2019. HISTORY: ORDERING SYSTEM PROVIDED HISTORY: intubated TECHNOLOGIST PROVIDED HISTORY: intubated FINDINGS: There is no acute consolidation or effusion. There is no pneumothorax. The mediastinal structures are unremarkable. The upper abdomen is unremarkable. The extrathoracic soft tissues are unremarkable. There is an endotracheal tube with the tip in the midtrachea. There is a gastric tube and the tip is not visualized. IMPRESSION: No acute cardiopulmonary process. Stable support tubes. [place] EXAMINATION: ONE XRAY VIEW OF THE CHEST 09/26/2019 9:39 am COMPARISON: Chest radiograph performed 09/24/2019. HISTORY: ORDERING SYSTEM PROVIDED HISTORY: intubated TECHNOLOGIST PROVIDED HISTORY: intubated FINDINGS: There is no acute consolidation or effusion. There is no pneumothorax. The mediastinal structures are unremarkable. The upper abdomen is unremarkable. The extrathoracic soft tissues are unremarkable. There is an endotracheal tube with the tip in the midtrachea. There is a gastric tube and the tip is not visualized. [place] Arterial Blood Gas, POCon Mino Test NOT REPORTED [place] aPTT Coag (Bld) [Time] NOT REPORTED [facility] [place] FIO2 30.0 [place] Mode NOT REPORTED [place], [place] Negative Base Excess, Art NOT REPORTED [place] O2 Device/Flow/% Adult Ventilator Me [place] Oxygen saturation in Blood 98 % 94 - 98 % [place] POC HCO3 25.9 mmol/L 21 - 28 mmol/L [place] POC pCO2 45.8 [place] POC pCO2 Temp NOT REPORTED mm [facility] [place] POC pH 7.361 [place] POC pH Temp NOT REPORTED [facility] [place] P[place] PO2 100.9 [place] POC pO2 Temp NOT REPORTED mm Hg [place] Positive Base Excess, Art 0 [place] Sample Site Arterial Line [place] TCO2 (calc), Art 27 mmol/L 22 - 29 mmol/L [place] Basic Metab w/rfx MGon 09-24 (cont.) Normal [facility] Comment on above: Result Comment: Aver age GFR for 60-69 years old: 85 mL/min/1.73sq m Chronic Kidney Disease: <60 mL/min/1.73sq m Kidney failure: <15 mL/min/1.73sq m eGFR calculated using average adult body mass. Additional eGFR calculator available at: http://www.[employer]/multiple_crcl_2011.htm Performed By: #### E RTPF #### [facility] [address] [place] [phone] Health Advocate: Tre Ferrell MD Anion gap [Moles/Vol] 11 mmol/L Normal 9-17 [facility] Comment on above: Performed By: #### E RTPF #### [facility] [address] [place] [phone] Health Advocate: Tre Ferrell MD Calcium [Mass/Vol] 8.1 mg/dL Low 8.6-10.4 [facility] Comment on above: Performed By: #### E RTPF #### [facility] [address] [place] [address] [phone] Health Advocate: Tre Ferrell MD Chloride [Moles/Vol] 110 mmol/L High 98-107 [facility] Comment on above: Performed By: #### E RTPF #### [address] [address] Health Advocate: Tre Ferrell MD CO2 [Moles/Vol] 21 mmol/L Normal 20-31 [facility] Comment on above: Performed By: #### E RTPF #### [address] [address] Health Advocate: Tre Ferrell MD Creatinine [Mass/Vol] 0.73 mg/dL Normal 0.70-1.20 [facility] Comment on above: Performed By: #### E RTPF #### [address] [address] Health Advocate: Tre Ferrell MD GFR, Amer >60 Normal >60 [facility] Comment on above: Performed By: #### E RTPF #### [address] [address] Health Advocate: Tre Ferrell MD GFR,non Amer >60 Normal >60 [facility] Comment on above: Performed By: #### E RTPF #### [address] [address] Health Advocate: Tre Ferrell MD Glucose [Mass/Vol] 134 mg/dL High 70-99 [facility] Comment on above: Performed By: #### E RTPF #### [address] [address] Health Advocate: Tre Ferrell MD Potassium [Moles/Vol] 4.1 mmol/L Normal 3.7-5.3 [facility] Comment on above: Performed By: #### E RTPF #### [address] [place] [address] Health Advocate: Tre Ferrell MD Sodium [Moles/Vol] 142 mmol/L Normal 135-144 [facility] Comment on above: Performed By: #### E RTPF #### [facility] [address] [place] [address] Health Advocate: Tre Ferrell MD Urea nitrogen [Mass/Vol] 13 mg/dL Normal 8- [facility] Comment on above: Performed By: #### E RTPF #### [facility] [address] [place] [address] Health Advocate: Tre Ferrell MD BUN/CRE Ratio NOT REPORTED Normal - [facility] Comment on above: Performed By: #### E RTPF #### [facility] [address] [place] [address] Health Advocate: Tre Ferrell MD Staging: NOT REPORTED Normal [facility] Comment on above: Performed By: #### E RTPF #### [address] [address] Health Advocate: Tre Ferrell MD Basic Metabolic Panel w/ Ref kylee to MGon 09-25-2019 Anion gap [Moles/Vol] 11 mmol/L 9 - 17 mmol/L [place] Bun/Cre Ratio NOT REPORTED [place] Calcium [Mass/Vol] 8.1 mg/dL Low 8.6 - 10. 4 mg/dL [place] Chloride [Moles/Vol] 110 mmol/L High 98 - 10 7 mmol/L [place] CO2 [Moles/Vol] 21 mmol/L 20 - 31 mmol/L [place] Creatinine [Mass/Vol] 0.73 mg/dL 0.7 - 1.2 mg/dL [place] GFR >60 >60 mL/min [place] GFR Non- >60 >60 mL/min [place] GFR/1.73 sq M predicted among non-blacks MDRD (S/P/Bld) [Vol rate/Area] [place] Comment on above: Average GFR for 60-6 9 years old: 85 mL/min/1.73sq m Chronic Kidney Disease: <60 mL/min/1.73sq m Kidney failure: <15 mL/min/1.73sq m eGFR calculated using average adult body mass. Additional eGFR calculator available at: http://www.[employer]/multiple_crcl_2012.htm GFR/1.73 sq M predicted among non-blacks MDRD (S/P/Bld) [Vol rate/Area] NOT REPORTED [place] Glucose [Mass/Vol] 134 mg/dL High 70 - 99 mg/dL [place] Interpretation and review of laboratory results Abnormal [place] Potassium [Moles/Vol] 4.1 mmol/L 3.7 - 5.3 mmol/L [place] Sodium [Moles/Vol] 142 mmol/L 135 - 144 mmol/L [place] Urea nitrogen [Mass/Vol] 13 mg/dL 8 - 23 mg/dL [place] CBC WITH AUTO DIFFERENTIALon 09-25-2019 Basophils (Bld) [#/Vol] 10*3/uL M [place] Basophils/100 WBC (Bld) 0 % 0 - 2 % [place] Differential Type NOT REPORTED [place] Eosinophils (Bld) [#/Vol] 10*3/uL [place] Eosinophils/100 WBC (Bld) 0 % Low 1 - 4 % [place] Erythrocyte distribution width (RBC) [Ratio] 13.5 % 11.8 - 14.4 % [place] Hematocrit (Bld) [Volume fraction] 32.9 % Low 40.7 - 50.3 % [place] Hemoglobin (Bld) [Mass/Vol] 10.1 g/dL Low 13 - 17 g/dL [place] Immature granulocytes (Bld) [#/Vol] 0.06 10*3/uL [place] Immature granulocytes (Bld) [#/Vol] 1 % High 0 [place] Interpretation and review of laboratory results Abnormal [place] Lymphocytes (Bld) [#/Vol] 1.20 10*3/uL [place] Lymphocytes/100 WBC (Bld) 12 % Low 24 - 43 % [place] MCH (RBC) [Entitic mass] 28.5 pg 25.2 - 33.5 pg [place] MCHC (RBC) [Mass/Vol] 30.7 g/dL 28.4 - 34.8 g/dL [place] MCV (RBC) [Entitic vol] 92.9 fL 82.6 - 102.9 fL [place] Monocytes (Bld) [#/Vol] 1.34 10*3/uL [place] Monocytes/100 WBC (Bld) 14 % High 3 - 12 % [place] Platelet mean volume (Bld) [Entitic vol] NOT REPORTED 8.1 - 13.5 fL [place] Platelets (Bld) [#/Vol] See Reflexed IPF Result [place] Platelets (Bld) [#/Vol] NOT REPORTED [place] RBC (Bld) [#/Vol] 3.54 10*6/uL Low 4.21 - 5.7 7 m/uL [place] RBC morphology finding Nom (Bld) NOT REPORTED [place] Segmented neutrophils/100 WBC (Bld) 74 % High 36 - 65 % [place] Segs Absolute 7.33 [place] WBC (Bld) [#/Vol] 10.0 10*3/uL [place] WBC (Bld) [#/Vol] 0.0 10*3/uL 0.0 per 10 0 WBC [place] WBC Morphology NOT REPORTED [place] CBC with Diffon 09-25-2019 Abs. Basophil <0.03 Normal 0.00-0.20 [facility] Comment on above: Performed By: #### E RTPF #### [address] [address] Health Advocate: Tre Ferrell MD Abs.Imm.Granulocyte 0.06 k/uL Normal 0.00-0.30 [facility] Comment on above: Performed By: #### E RTPF #### [address] [address] Health Advocate: Tre Ferrell MD Abs.Neutrophil (Seg) 7.33 k/uL Normal 1.50-8.10 [facility] Comment on above: Performed By: #### E RTPF #### [address] [address] Health Advocate: Tre Ferrell MD Basophils/100 WBC (Bld) 0 % Normal 0-2 M [facility] Comment on above: Performed By: #### E RTPF #### [address] [address] Health Advocate: Tre Ferrell MD Eosinophils (Bld) [#/Vol] 10*3/uL Normal 0.00-0.44 [facility] Comment on above: Performed By: #### E RTPF #### [address] [address] Health Advocate: Tre Ferrell MD Eosinophils/100 WBC (Bld) 0 % Low 1-4 [facility] Comment on above: Performed By: #### E RTPF #### [address] [address] Health Advocate: Tre Ferrell MD Erythrocyte distribution width (RBC) [Ratio] 13.5 % Normal 11.8-14.4 [facility] Comment on above: Performed By: #### E RTPF #### [address] [address] Health Advocate: Tre Ferrell MD Hematocrit (Bld) [Volume fraction] 32.9 % Low 40.7-50.3 [facility] Comment on above: Performed By: #### E RTPF #### [address] [address] Health Advocate: Tre Ferrell MD Hemoglobin (Bld) [Mass/Vol] 10.1 g/dL Low 13.0-17.0 [facility] Comment on above: Performed By: #### E RTPF #### [address] [address] Health Advocate: Tre Ferrell MD Immature granulocytes (Bld) [#/Vol] 1 % High 0 [facility] Comment on above: Performed By: #### E RTPF #### [address] [address] Health Advocate: Tre Ferrell MD Lymphocytes (Bld) [#/Vol] 1.20 10*3/uL Normal 1.10-3.70 [facility] Comment on above: Performed By: #### E RTPF #### [address] [address] Health Advocate: Tre Ferrell MD Lymphocytes/100 WBC (Bld) 12 % Low 24-43 [facility] Comment on above: Performed By: #### E RTPF #### [address] [address] Health Advocate: Tre Ferrell MD MCH (RBC) [Entitic mass] 28.5 pg Normal 25.2-33.5 [facility] Comment on above: Performed By: #### E RTPF #### [address] [address] Health Advocate: Tre Ferrell MD MCHC (RBC) [Mass/Vol] 30.7 g/dL Normal 28.4-34.8 [facility] Comment on above: Performed By: #### E RTPF #### [place] [address] Health Advocate: Tre Ferrell MD MCV (RBC) [Entitic vol] 92.9 fL Normal 82.6-102.9 [facility] Comment on above: Performed By: #### E RTPF #### [place] [address] Health Advocate: Tre Ferrell MD Monocytes (Bld) [#/Vol] 1.34 10*3/uL High 0.10-1.20 [facility] Comment on above: Performed By: #### E RTPF #### [place] [address] Health Advocate: Tre Ferrell MD Monocytes/100 WBC (Bld) 14 % High 3-12 M [facility] Comment on above: Performed By: #### E RTPF #### [place] [address] Health Advocate: Tre Ferrell MD Neutrophil (Seg) 74 % High 36-65 [facility] Comment on above: Performed By: #### E RTPF #### [place] [address] Health Advocate: Tre Ferrell MD NRBC Automated 0.0 per 100 WBC Normal 0.0 [facility] Comment on above: Performed By: #### E RTPF #### [place] [address] Health Advocate: Tre Ferrell MD Platelets (Bld) [#/Vol] See Reflexed IPF Result Normal 138-453 [facility] Comment on above: Performed By: #### E RTPF #### [address] [address] Health Advocate: Tre Ferrell MD RBC (Bld) [#/Vol] 3.54 10*6/uL Low 4.21-5.77 [facility] Comment on above: Performed By: #### E RTPF #### [address] [address] Health Advocate: Tre Ferrell MD WBC (Bld) [#/Vol] 10.0 10*3/uL Normal 3.5-11.3 [facility] Comment on above: Performed By: #### E RTPF #### [address] [address] Health Advocate: Tre Ferrell MD Auto Diff Performed NOT REPORTED Normal [facility] Comment on above: Performed By: #### E RTPF #### [address] [address] Health Advocate: Tre Ferrell MD Platelet mean volume (Bld) [Entitic vol] NOT REPORTED Normal 8.1-13.5 [facility] Comment on above: Performed By: #### E RTPF #### [address] [address] Health Advocate: Tre Ferrell MD Platelets (Bld) [#/Vol] NOT REPORTED Normal [facility] Comment on above: Performed By: #### E RTPF #### [address] [address] Health Advocate: Tre Ferrell MD RBC morphology finding Nom (Bld) NOT REPORTED Normal [facility] Comment on above: Performed By: #### E RTPF #### [address] [address] Health Advocate: Tre Ferrell MD WBC Morphology NOT REPORTED Normal [facility] Comment on above: Performed By: #### E RTPF #### [address] [address] Health Advocate: Tre Ferrell MD Immature Platelet Fractionon 09-25-2019 Interpretation and review of laboratory results Abnormal [place] Platelet, Fluorescence [address] [place] Comment on above: ORDERED BY LAB Platelet, Immature Fraction 4.3 % 1.1 - 10.3 % [place] Comment on above: ORDERED BY LAB Lactic Acid, POCon 0 POC Lactic Acid 0.68 mmol/L 0.56 - 1.39 mmol/L [place] PLT, Immature Fract.on 09-24 Platelet, Fluoresc. 129 k/uL Low 138-453 [facility] Comment on above: Result Comment: ORDE RED BY LAB Performed By: #### E RTPF #### [address] [address] Health Advocate: Tre Ferrell MD PLT, Immature Fract. 4.3 % Normal 1.1-10.3 [facility] Comment on above: Result Comment: ORDE RED BY LAB Performed By: #### E RTPF #### [address] [address] Health Advocate: Tre Ferrell MD XR CERVICAL SPINE (2-3 VIEWS )on 09-25-2019 XR CERVICAL SPINE (2-3 VIEWS) EXAMINATION: 2 XRAY VIEWS OF THE CERVICAL SPINE 09/25/2019 2:46 pm COMPARISON: 09/24/2019 HISTORY: ORDERING SYSTEM PROVIDED HISTORY: s/p posterior cervical fixation C3-5 TECHNOLOGIST PROVIDED HISTORY: Obtain upright in bed A/P and LAT s/p posterior cervical fixation C3-5 Reason for Exam: ap/rt lateral uprt portable post op Type of Exam: Subsequent/Follow-up FINDINGS: There is posterior cervical fusion hardware at C3, C4, and C5. Laminectomies are also noted at these levels. There is a surgical drain overlying the posterior soft tissues. Vertebral body heights and alignment are normal. There is moderate to severe disc space narrowing and endplate spurring at C5-C6 and C6-C7. Endotracheal and enteric tubes are noted. IMPRESSION: Status post C3-C5 posterior decompression and fusion. Interpreted by: Beverly Allen DO Signed by: Beverly Allen DO 09/25/19 Final result Normal [facility] Status post C3-C5 posterior decompression and fusion. [place] EXAMINATION: 2 XRAY VIEWS OF THE CERVICAL SPINE 09/25/2019 2:46 pm COMPARISON: 09/24/2019 HISTORY: ORDERING SYSTEM PROVIDED HISTORY: s/p posterior cervical fixation C3-5 TECHNOLOGIST PROVIDED HISTORY: Obtain upright in bed A/P and LAT s/p posterior cervical fixation C3-5 Reason for Exam: ap/rt lateral uprt portable post op Type of Exam: Subsequent/Follow-up FINDINGS: There is posterior cervical fusion hardware at C3, C4, and C5. Laminectomies are also noted at these levels. There is a surgical drain overlying the posterior soft tissues. Vertebral body heights and alignment are normal. There is moderate to severe disc space narrowing and endplate spurring at C5-C6 and C6-C7. Endotracheal and enteric tubes are noted. [place] Samm, [employer] Incoming Radiant Results From [employer] - 09/25/2019 4:44 PM EDT EXAMINATION: 2 XRAY VIEWS OF THE CERVICAL SPINE 09/25/2019 2:46 pm COMPARISON: 09/24/2019 HISTORY: ORDERING SYSTEM PROVIDED HISTORY: s/p posterior cervical fixation C3-5 TECHNOLOGIST PROVIDED HISTORY: Obtain upright in bed A/P and LAT s/p posterior cervical fixation C3-5 Reason for Exam: ap/rt lateral uprt portable post op Type of Exam: Subsequent/Follow-up FINDINGS: There is posterior cervical fusion hardware at C3, C4, and C5. Laminectomies are also noted at these levels. There is a surgical drain overlying the posterior soft tissues. Vertebral body heights and alignment are normal. There is moderate to severe disc space narrowing and endplate spurring at C5-C6 and C6-C7. Endotracheal and enteric tubes are noted. IMPRESSION: Status post C3-C5 posterior decompression and fusion. [facility] [place] Arterial Blood Gas, POCon Mino Test NOT REPORTED [facility] [place] aPTT Coag (Bld) [Time] NOT REPORTED [facility] [place] FIO2 30.0 [place] Negative Base Excess, Art NOT REPORTED [place] O2 Device/Flow/% Adult Ventilator [place] Oxygen saturation in Blood 97 % 94 - 98 % [place] POC HCO3 24.7 mmol/L 21 - 28 mmol/L [place] POC pCO2 41.7 [place] POC pCO2 Temp NOT REPORTED mm Hg [place], [place] POC pH 7.381 [place] POC pH Temp NOT REPORTED [place] POC PO2 97.7 [place] POC pO2 Temp NOT REPORTED mm Hg [place] Positive Base Excess, Art 0 [place], [place] Sample Site Arterial Line [place] TCO2 (calc), Art 26 mmol/L 22 - 29 mmol/L [place] Mino Test NOT REPORTED [place] aPTT Coag (Bld) [Time] NOT REPORTED [place] FIO2 60.0 [place] Negative Base Excess, Art 2 [place] O2 Device/Flow/% Adult Ventilator [place] Oxygen saturation in Blood 100 % High 94 - 98 % [place] POC HCO3 23.7 mmol/L 21 - 28 mmol/L [place] POC pCO2 45.3 [place] POC pCO2 Temp NOT REPORTED mm Hg [place], [place] POC pH 7.327 Low [place] POC pH Temp NOT REPORTED [place] POC PO2 242.1 High [place] POC pO2 Temp NOT REPORTED mm Hg [place] Positive Base Excess, Art NOT REPORTED [place] Sample Site Arterial Line [place] TCO2 (calc), Art 25 mmol/L 22 - 29 mmol/L [place] Basic Metab w/rfx MGon 09-23 (cont.) Normal [facility] Comment on above: Result Comment: Aver age GFR for 60-69 years old: 85 mL/min/1.73sq m Chronic Kidney Disease: <60 mL/min/1.73sq m Kidney failure: <15 mL/min/1.73sq m eGFR calculated using average adult body mass. Additional eGFR calculator available at: http://www.[employer].CardioGenics/multiple_crcl_2012.htm Performed By: #### E RTPF #### [address] [address] Health Advocate: Tre Ferrell MD GFR, Amer >60 Normal >60 [facility] Comment on above: Performed By: #### E RTPF #### [address] [address] Health Advocate: Tre Ferrell MD GFR,non Amer >60 Normal >60 [facility] Comment on above: Performed By: #### E RTPF #### [address] [address] Health Advocate: Tre Ferrell MD BUN/CRE Ratio NOT REPORTED Normal - [facility] Comment on above: Performed By: #### E RTPF #### [address] [address] Health Advocate: Tre Ferrell MD Staging: NOT REPORTED Normal [facility] Comment on above: Performed By: #### E RTPF #### [address] [address] Health Advocate: Tre Ferrell MD Calcium [Mass/Vol] 8.1 mg/dL Low 8.6-10.4 [facility] [place] Comment on above: Performed By: #### E RTPF #### [address] [address] Health Advocate: Tre Ferrell MD CO2 [Moles/Vol] 21 mmol/L Normal 20-31 [place] Comment on above: Performed By: #### E RTPF #### [facility] [address] [place] [address] Health Advocate: Tre Ferrell MD Creatinine [Mass/Vol] 0.64 mg/dL Low 0.70-1.20 [place] Comment on above: Performed By: #### E RTPF #### [facility] [address] [place] [address] Health Advocate: Tre Ferrell MD Glucose [Mass/Vol] 154 mg/dL High 70-99 [place] Comment on above: Performed By: #### E RTPF #### [address] [address] Health Advocate: Tre Ferrell MD Potassium [Moles/Vol] 4.5 mmol/L Normal 3.7-5.3 [place] Comment on above: Performed By: #### E RTPF #### [address] [address] Health Advocate: Tre Ferrell MD Sodium [Moles/Vol] 142 mmol/L Normal 135-144 [place] Comment on above: Performed By: #### E RTPF #### [facility] [address] [place] [address] Health Advocate: Tre Ferrell MD Urea nitrogen [Mass/Vol] 15 mg/dL Normal 8-23 [place] Comment on above: Performed By: #### E RTPF #### [facility] [address] [place] [address] Health Advocate: Tre Ferrell MD Anion gap [Moles/Vol] 12 mmol/L Normal 9-17 [place] Comment on above: Performed By: #### E RTPF #### [facility] [address] [place] [address] [phone] Health Advocate: Tre Ferrell MD Chloride [Moles/Vol] 109 mmol/L High 98-107 [place], [place] Comment on above: Performed By: #### E RTPF #### [facility] [address], [place] [phone] Health Advocate: Tre Ferrell MD Basic Metabolic Panel w/ Ref kylee to MGon 09-24-2019 Bun/Cre Ratio NOT REPORTED [place], [place] GFR >60 >60 mL/min [place], [place] GFR Non- >60 >60 mL/min [place] GFR/1.73 sq M predicted among non-blacks MDRD (S/P/Bld) [Vol rate/Area] [place] Comment on above: Average GFR for 60-6 9 years old: 85 mL/min/1.73sq m Chronic Kidney Disease: <60 mL/min/1.73sq m Kidney failure: <15 mL/min/1.73sq m eGFR calculated using average adult body mass. Additional eGFR calculator available at: http://www.[employer]/multiple_crcl_2012.htm GFR/1.73 sq M predicted among non-blacks MDRD (S/P/Bld) [Vol rate/Area] NOT REPORTED [place] Interpretation and review of laboratory results Abnormal [place] CALCIUM, IONIC (POC)on 09-23 POC Ionized Calcium 1.17 mmol/L 1.15 - 1 .33 mmol/L [place] CBCon 09-24-2019 Erythrocyte distribution width (RBC) [Ratio] 13.1 % Normal 11.8-14.4 [facility] Comment on above: Performed By: #### BRANDY Nunez DAU #### [facility] [address], [place] [phone] Health Advocate: Tre Ferrell MD Hematocrit (Bld) [Volume fraction] 37.3 % Low 40.7-50.3 [facility] Comment on above: Performed By: #### BRANDY Nunez DAU #### [address] [address] Health Advocate: Tre Ferrell MD Hemoglobin (Bld) [Mass/Vol] 11.8 g/dL Low 13.0-17.0 [facility] Comment on above: Performed By: #### BRANDY Nunez DAU #### [address] [address] Health Advocate: Tre Ferrell MD MCH (RBC) [Entitic mass] 28.9 pg Normal 25.2-33.5 [facility] Comment on above: Performed By: #### BRANDY Nunez DAU #### [address] [address] Health Advocate: Tre Ferrell MD MCHC (RBC) [Mass/Vol] 31.6 g/dL Normal 28.4-34.8 [facility] [place] Comment on above: Performed By: #### BRANDY Nunez DAU #### [address] [address] Health Advocate: Tre Ferrell MD MCV (RBC) [Entitic vol] 91.4 fL Normal 82.6-102.9 M [facility] Comment on above: Performed By: #### BRANDY Nunez DAU #### [address] [address] Health Advocate: Tre Ferrell MD NRBC Automated 0.0 per 100 WBC Normal 0.0 [facility] Comment on above: Performed By: #### BRANDY Nunez DAU #### [address] [address] Health Advocate: Tre Ferrell MD Platelets (Bld) [#/Vol] See Reflexed IPF Result Normal 138-453 [facility] Comment on above: Performed By: #### BRANDY Nunez DAU #### [employer] [address] [place] [address] Health Advocate: Tre Ferrell MD RBC (Bld) [#/Vol] 4.08 10*6/uL Low 4.21-5.77 [facility] Comment on above: Performed By: #### BRANDY Nunez DAU #### [employer] [address] [place] [address] Health Advocate: Tre Ferrell MD WBC (Bld) [#/Vol] 6.7 10*3/uL Normal 3.5-11.3 [facility] Comment on above: Performed By: #### BRANDY Nunez DAU #### [facility] [address] [place] [address] Health Advocate: Tre Ferrell MD Platelet mean volume (Bld) [Entitic vol] NOT REPORTED Normal 8.1-13.5 [facility] Comment on above: Performed By: #### BRANDY Nunez DAU #### [employer] [address] [place] [address] Health Advocate: Tre Ferrell MD Erythrocyte distribution width (RBC) [Ratio] 13.1 % 11.8 - 14.4 % [place] Hematocrit (Bld) [Volume fraction] 37.3 % Low 40.7 - 50.3 % [place] Hemoglobin (Bld) [Mass/Vol] 11.8 g/dL Low 13 - 17 g/dL [place] Interpretation and review of laboratory results Abnormal [place] MCH (RBC) [Entitic mass] 28.9 pg 25.2 - 33.5 pg [place] MCHC (RBC) [Mass/Vol] 31.6 g/dL 28.4 - 34.8 g/dL [place] MCV (RBC) [Entitic vol] 91.4 fL 82.6 - 102.9 fL [place], [place] Platelet mean volume (Bld) [Entitic vol] NOT REPORTED 8.1 - 13.5 fL [place] Platelets (Bld) [#/Vol] See Reflexed IPF Result [place] RBC (Bld) [#/Vol] 4.08 10*6/uL Low 4.21 - 5.7 7 m/uL [place] WBC (Bld) [#/Vol] 0.0 10*3/uL 0.0 per 10 0 WBC [place] WBC (Bld) [#/Vol] 6.7 10*3/uL [place] Creatinine W/GFR Point of Ca reon 09-24-2019 Creatinine [Mass/Vol] 1.03 mg/dL 0.51 - 1.19 mg/dL [place] GFR Non- CANNOT BE CALCULATED >60 mL/min [place] GFR/1.73 sq M predicted among non-blacks MDRD (S/P/Bld) [Vol rate/Area] [place], [place] Comment on above: Average GFR for 60-6 9 years old: 85 mL/min/1.73sq m Chronic Kidney Disease: <60 mL/min/1.73sq m Kidney failure: <15 mL/min/1.73sq m eGFR calculated using average adult body mass. Additional eGFR calculator available at: http://www.[employer].CardioGenics/multiple_crcl_2012.htm GFR/1.73 sq M predicted among non-blacks MDRD (S/P/Bld) [Vol rate/Area] CANNOT BE CALCULATED >60 mL/min [place] Hemoglobin and hematocrit, b loodon 09-24-2019 Hematocrit (Bld) [Volume fraction] 37 % Low 41 - 53 % [place] Hemoglobin (Bld) [Mass/Vol] 12.7 g/dL Low 13.5 - 17.5 g/dL [place] Immature Platelet Fractionon 09-24-2019 Interpretation and review of laboratory results Abnormal [place] Platelet, Fluorescence 129 [address] [place], [place] Comment on above: ORDERED BY LAB Platelet, Immature Fraction 4.3 % 1.1 - 10.3 % [place] Comment on above: ORDERED BY LAB Lactic Acidon 09-24-2019 Lactate [Moles/Vol] 1.9 mmol/L Normal 0.7-2.1 [facility] Comment on above: Performed By: #### BRANDY Nunez DAU #### [employer] [address] [place] [address] [phone] Health Advocate: Tre Ferrell MD Lactate [Moles/Vol] NOT REPORTED Normal [facility] [place] Comment on above: Performed By: #### BRANDY Nunez DAU #### [facility] [address] [place] [address] [phone] Health Advocate: Tre Ferrell MD Lactic Acid, POCon 0 POC Lactic Acid 0.92 mmol/L 0.56 - 1.39 mmol/L [place] POC Lactic Acid 2.45 mmol/L High 0.56 - 1.39 mmol/L [place] Lactic acid, plasmaon 2019 Lactate [Moles/Vol] NOT REPORTED mmol/L [place] Lactic Acid, Whole Blood 1.9 mmol/L 0.7 - 2.1 mmol/L [place] Otheron 09-24-2019 Interpretation and review of laboratory results Abnormal [place] PLT, Immature Fract.on 09-23 Platelet, Fluoresc. 129 k/uL Low 138-453 [facility] Comment on above: Result Comment: ORDE RED BY LAB Performed By: #### BRANDY Nunez DAU #### [employer] [address] [place] [address] [phone] Health Advocate: Tre Ferrell MD PLT, Immature Fract. 4.3 % Normal 1.1-10.3 [facility] Comment on above: Result Comment: ORDE RED BY LAB Performed By: #### BRANDY Nunez DAU #### [employer] [address] [place] [address] Health Advocate: Tre Ferrell MD POCT Glucoseon 09-24-2019 Glucose [Mass/Vol] 97 mg/dL 74 - 100 mg/dL [place] POTASSIUM (POC)on 09-24-2019 Potassium [Moles/Vol] 3.6 mmol/L 3.5 - 4.5 mmol/L [place] SODIUM (POC)on 09-24-2019 Sodium [Moles/Vol] 145 mmol/L 138 - 146 mmol/L [place] XR CERVICAL SPINE (2-3 VIEWS )on 09-24-2019 XR CERVICAL SPINE (2-3 VIEWS) EXAMINATION: 2 XRAY VIEWS OF THE CERVICAL SPINE 09/24/2019 6:21 am COMPARISON: None. HISTORY: ORDERING SYSTEM PROVIDED HISTORY: intra op TECHNOLOGIST PROVIDED HISTORY: intra op FINDINGS: Fluoroscopic time 6 seconds. AP and lateral intra operative fluoroscopic views of the cervical spine. Posterior fusion of C3, C4 and C5 with bilateral pedicle screws in place and vertical bridging rods. Surgical retractors in the posterior soft tissues. Satisfactory alignment and position on these views. Support tubes in place. IMPRESSION: Intraoperative views of posterior fusion of C3, C4 and C5. Interpreted by: Dameon Ramirez MD Signed by: Dameon Ramirez MD 09/24/19 Final result Normal [facility] EXAMINATION: 2 XRAY VIEWS OF THE CERVICAL SPINE 09/24/2019 6:21 am COMPARISON: None. HISTORY: ORDERING SYSTEM PROVIDED HISTORY: intra op TECHNOLOGIST PROVIDED HISTORY: intra op FINDINGS: Fluoroscopic time 6 seconds. AP and lateral intra operative fluoroscopic views of the cervical spine. Posterior fusion of C3, C4 and C5 with bilateral pedicle screws in place and vertical bridging rods. Surgical retractors in the posterior soft tissues. Satisfactory alignment and position on these views. Support tubes in place. [place] Intraoperative views of posterior fusion of C3, C4 and C5. [place] Samm, [employer] Incoming Radiant Results From [employer] - 09/24/2019 7:55 AM EDT EXAMINATION: 2 XRAY VIEWS OF THE CERVICAL SPINE 09/24/2019 6:21 am COMPARISON: None. HISTORY: ORDERING SYSTEM PROVIDED HISTORY: intra op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 pg 25.2 - 33.5 pg [place] MCHC (RBC) [Mass/Vol] 31.3 g/dL 28.4 - 34.8 g/dL [place] MCV (RBC) [Entitic vol] 94.2 fL 82.6 - 102.9 fL [place] Methemoglobin NOT REPORTED 0 - 1.5 % [place] Mode NOT REPORTED [place], [place] Negative Base Excess, John 5.4 mmol/L High 0 - 2 mmol/L [place] NOTIFICATION NOT REPORTED [place] NOTIFICATION TIME NOT REPORTED [place] O2 Device/Flow/% NOT REPORTED [place] Oxygen saturation in Blood 96.7 % High 60 - 85 % [place] Oxyhemoglobin NOT REPORTED 95 - 98 % [place] pCO2, John 48.4 [place] pCO2, John, Temp Adj NOT REPORTED [place], [place] Peep/Cpap NOT REPORTED [place], [place] pH, John 7.266 Low [place] pH, John, Temp Adj NOT REPORTED [place] Platelet mean volume (Bld) [Entitic vol] 9.9 fL 8.1 - 13.5 fL [place] Platelets (Bld) [#/Vol] 212 10*3/uL [place] pO2, John 106.0 High [place] pO2, John, Temp Adj NOT REPORTED [place], [place] Positive Base Excess, John NOT REPORTED 0 - 2 mmol/L [place] Potassium [Moles/Vol] 4.0 mmol/L 3.7 - 5.3 mmol/L [place] PSV NOT REPORTED [place] PT Coag (PPP) [Time] 9.9 s [place] Pt. Position NOT REPORTED [place] RBC (Bld) [#/Vol] 4.34 10*6/uL 4.21 - 5.7 7 m/uL [place] Sample Site NOT REPORTED [place], [place] Set Rate NOT REPORTED [place] Sodium [Moles/Vol] 142 mmol/L 135 - 144 mmol/L [place] Text for Respiratory NOT REPORTED [place] Total Hb NOT REPORTED 12 - 16 g/dl [place] Total Rate NOT REPORTED [place] Urea nitrogen [Mass/Vol] 16 mg/dL 8 - 23 mg/dL [place] VT NOT REPORTED [place] WBC (Bld) [#/Vol] 0.0 10*3/uL 0.0 per 10 0 WBC [place] WBC (Bld) [#/Vol] 3.9 10*3/uL [place] Trauma Profileon 09-23-2019 Anion gap [Moles/Vol] 15 mmol/L Normal 9-17 [facility] [place] Comment on above: Performed By: #### E RTPF #### [facility] [employer] [address] [place], [place] [id number] Health Advocate: Tre Ferrell MD Chloride [Moles/Vol] 109 mmol/L High 98-107 [facility] Comment on above: Performed By: #### E RTPF #### [address] [address] Health Advocate: Tre Ferrell MD CO2 [Moles/Vol] 18 mmol/L Low 20-31 [facility] Comment on above: Performed By: #### E RTPF #### [address] [address] Health Advocate: Tre Ferrell MD Creatinine [Mass/Vol] 1.14 mg/dL Normal 0.70-1.20 [facility] [place] Comment on above: Performed By: #### E RTPF #### [address] [address] Health Advocate: Tre Ferrell MD Ethanol [Mass/Vol] 161 mg/dL High <10 [facility] Comment on above: Performed By: #### E RTPF #### [address] [address] Health Advocate: Tre Ferrell MD Ethanol percent 0.161 % High <0.010 [facility] Comment on above: Performed By: #### E RTPF #### [address] [address] Health Advocate: Tre Ferrell MD Glucose [Mass/Vol] 141 mg/dL High 70-99 [facility] Comment on above: Performed By: #### E RTPF #### [address] [address] Health Advocate: Tre Ferrell MD Potassium [Moles/Vol] 4.0 mmol/L Normal 3.7-5.3 [facility] Comment on above: Performed By: #### E RTPF #### [address] [address] Health Advocate: Tre Ferrell MD Sodium [Moles/Vol] 142 mmol/L Normal 135-144 [facility] Comment on above: Performed By: #### E RTPF #### [address] [address] Health Advocate: Tre Ferrell MD Urea nitrogen [Mass/Vol] 16 mg/dL Normal 8-23 [facility] Comment on above: Performed By: #### E RTPF #### [address] [address] Health Advocate: Tre Ferrell MD aPTT Coag (Bld) [Time] 22.3 s Normal 20.5-30.5 [facility] Comment on above: Performed By: #### E RTPF #### [address] [address] Health Advocate: Tre Ferrell MD INR Coag (PPP) [Relative time] 0.9 {INR} [facility] Comment on above: Result Comment: Therapeutic Range: Moderate Anticoagulant Intensity: INR = 2.0-3.0 High Anticoagulant Intensity: INR = 2.5-3.5 Performed By: #### E RTPF #### [address] [address] Health Advocate: Tre Ferrell MD PT Coag (PPP) [Time] 9.9 s Normal 9.0-12.0 [facility] Comment on above: Performed By: #### E RTPF #### [address] [address] Health Advocate: Tre Ferrell MD Body Temp. 37.0 Normal [facility] Comment on above: Performed By: #### E RTPF #### [address] [address] Health Advocate: Tre Ferrell MD Carboxy Hgb 5.1 % High 0-5 [facility] Comment on above: Result Comment: Reference Range: Non-Smokers 0-2% Average Smoker 2-4% Heavy Smoker <10% Performed By: #### E RTPF #### [address] [address] Health Advocate: Tre Ferrell MD FIO2 INFORMATION NOT PROVIDED [facility] Comment on above: Performed By: #### E RTPF #### [address] [address] Health Advocate: Tre Ferrell MD HCO3 (Bld) [Moles/Vol] 21.3 mmol/L Low 24-30 M [facility] Comment on above: Performed By: #### E RTPF #### [address] [address] Health Advocate: Tre Ferrell MD Negative Base Excess 5.4 mmol/L High 0.0-2.0 [facility] Comment on above: Performed By: #### E RTPF #### [address] [address] Health Advocate: Tre Ferrell MD Oxygen (Bld) [Partial pressure] 106.0 mm[Hg] High 30-50 [facility] Comment on above: Performed By: #### E RTPF #### [address] [address] Health Advocate: Tre Ferrell MD Oxygen saturation in Blood 96.7 % High 60.0-85.0 [facility] Comment on above: Performed By: #### E RTPF #### [address] [address] Health Advocate: Tre Ferrell MD pCO2 48.4 Normal 39-55 [facility] Comment on above: Performed By: #### E RTPF #### [address] [address] Health Advocate: Tre Ferrell MD pH (Bld) 7.266 [pH] Low 7.320-7.420 [facility] Comment on above: Performed By: #### E RTPF #### [address] [address] Health Advocate: Tre Ferrell MD Erythrocyte distribution width (RBC) [Ratio] 12.8 % Normal 11.8-14.4 [facility] Comment on above: Performed By: #### E RTPF #### [address] [address] Health Advocate: Tre Ferrell MD Hematocrit (Bld) [Volume fraction] 40.9 % Normal 40.7-50.3 [facility] Comment on above: Performed By: #### E RTPF #### [address] [address] Health Advocate: Tre Ferrell MD Hemoglobin (Bld) [Mass/Vol] 12.8 g/dL Low 13.0-17.0 [facility] Comment on above: Performed By: #### E RTPF #### [address] [address] Health Advocate: Tre Ferrell MD MCH (RBC) [Entitic mass] 29.5 pg Normal 25.2-33.5 [facility] Comment on above: Performed By: #### E RTPF #### [address] [address] Health Advocate: Tre Ferrell MD MCHC (RBC) [Mass/Vol] 31.3 g/dL Normal 28.4-34.8 [facility] [place] Comment on above: Performed By: #### E RTPF #### [address] [address] Health Advocate: Tre Ferrell MD MCV (RBC) [Entitic vol] 94.2 fL Normal 82.6-102.9 M [facility] Comment on above: Performed By: #### E RTPF #### [address] [address] Health Advocate: Tre Ferrell MD NRBC Automated 0.0 per 100 WBC Normal 0.0 [facility] Comment on above: Performed By: #### E RTPF #### [address] [address] Health Advocate: Tre Ferrell MD Platelet mean volume (Bld) [Entitic vol] 9.9 fL Normal 8.1-13.5 [facility] Comment on above: Performed By: #### E RTPF #### [address] [address] Health Advocate: Tre Ferrell MD Platelets (Bld) [#/Vol] 212 10*3/uL Normal 138-453 [facility] Comment on above: Performed By: #### E RTPF #### [address] [address] Health Advocate: Tre Ferrell MD RBC (Bld) [#/Vol] 4.34 10*6/uL Normal 4.21-5.77 [facility] Comment on above: Performed By: #### E RTPF #### [address] [address] Health Advocate: Tre Ferrell MD WBC (Bld) [#/Vol] 3.9 10*3/uL Normal 3.5-11.3 [facility] Comment on above: Performed By: #### E RTPF #### [address] [address] Health Advocate: Tre Ferrell MD Blood Bank BILL FOR SERVICES PERFORMED Normal [facility] Comment on above: Performed By: #### E RTPF #### [facility] [employer] [address] [place] [address] Health Advocate: Tre Ferrell MD (cont.) NOT REPORTED Normal [facility] Comment on above: Performed By: #### E RTPF #### [address] [address] Health Advocate: Tre Ferrell MD Mino Test NOT REPORTED Normal [facility] Comment on above: Performed By: #### E RTPF #### [address] [address] Health Advocate: Tre Ferrell MD GFR, Amer NOT REPORTED Normal >60 [facility] Comment on above: Performed By: #### E RTPF #### [address] [address] Health Advocate: Tre Ferrell MD GFR,non Amer NOT REPORTED Normal >60 [facility] Comment on above: Performed By: #### E RTPF #### [address] [address] Health Advocate: Tre Ferrell MD Methemoglobin NOT REPORTED Normal 0.0-1.5 [facility] Comment on above: Performed By: #### E RTPF #### [address] [address] Health Advocate: Tre Ferrell MD Mode NOT REPORTED Normal [facility] Comment on above: Performed By: #### E RTPF #### [address] [address] Health Advocate: Tre Ferrell MD Notification Time NOT REPORTED Normal [facility] Comment on above: Performed By: #### E RTPF #### [address] [id number] Health Advocate: Tre Ferrell MD Notification: NOT REPORTED Normal [facility] Comment on above: Performed By: #### E RTPF #### [address] [address] Health Advocate: Tre Ferrell MD O2 Device/Flow/% NOT REPORTED Normal [facility] Comment on above: Performed By: #### E RTPF #### [address] [address] Health Advocate: Tre Ferrell MD Oxyhemoglobin NOT REPORTED Normal 95.0-98.0 [facility] Comment on above: Performed By: #### E RTPF #### [address] [address] Health Advocate: Tre Ferrell MD Pco2 Adj'd for Temp. NOT REPORTED Normal 39-55 [facility] Comment on above: Performed By: #### E RTPF #### [address] [address] Health Advocate: Tre Ferrell MD PEEP/CPAP NOT REPORTED Normal [facility] Comment on above: Performed By: #### E RTPF #### [address] [address] Health Advocate: Tre Ferrell MD pH Adjst'd for Temp. NOT REPORTED Normal 7.320-7.420 M [facility] Comment on above: Performed By: #### E RTPF #### [address] [address] Health Advocate: Tre Ferrell MD pO2 Adj'd for Temp. NOT REPORTED Normal 30-50 [facility] Comment on above: Performed By: #### E RTPF #### [address] [address] Health Advocate: Tre Ferrell MD Positive Base Excess NOT REPORTED Normal 0.0-2.0 [facility] Comment on above: Performed By: #### E RTPF #### [address] [address] Health Advocate: Tre Ferrell MD PSV NOT REPORTED Normal [facility] Comment on above: Performed By: #### E RTPF #### [address] [address] Health Advocate: Tre Ferrell MD Pt. Position NOT REPORTED Normal [facility] Comment on above: Performed By: #### E RTPF #### [address] [address] Health Advocate: Tre Ferrell MD Set Rate NOT REPORTED Normal [facility] Comment on above: Performed By: #### E RTPF #### [address] [address] Health Advocate: Tre Ferrell MD Site Drawn NOT REPORTED Normal [facility] Comment on above: Performed By: #### E RTPF #### [address] [address] Health Advocate: Tre Ferrell MD Staging: NOT REPORTED Normal [facility] Comment on above: Performed By: #### E RTPF #### [facility] [address] [place] [address] Health Advocate: Tre Ferrell MD Text for Respiratory NOT REPORTED Normal [facility] Comment on above: Performed By: #### E RTPF #### [address] [address] Health Advocate: Tre Ferrell MD Total Hb NOT REPORTED Normal 12.0-16.0 [facility] Comment on above: Performed By: #### E RTPF #### [facility] [place] [address] Health Advocate: Tre Ferrell MD Total Rate NOT REPORTED Normal [facility] Comment on above: Performed By: #### E RTPF #### [facility] [address] [place] [address] Health Advocate: Tre Ferrell MD VT NOT REPORTED Normal [facility] Comment on above: Performed By: #### E RTPF #### [address] [id number] Health Advocate: Tre Ferrell MD Type + Screenon 09-23-2019 Type + Screen Sample Expiration 09/26/2019,2359 Arm Band Number [id number] ABO/Rh(D) O POSITIVE Antibody Screen NEGATIVE Normal [facility] Comment on above: Performed By: #### T YS #### [address] [address] Health Advocate: Tre Ferrell MD Urinalysison 09-23-2019 Bilirubin Urine Negative NEGATIVE [place], [place] Color, UA YELLOW YELLOW [place], [place] Glucose, Ur Negative NEGATIVE [place] Interpretation and review of laboratory results Abnormal [place], [place] Ketones Ql (U) Negative NEGATIVE [place] Leukocyte esterase Test strip Ql (U) Negative NEGATIVE [facility], [place] Nitrite, Urine Negative NEGATIVE [facility], [place] pH, UA 6.0 [place], [place] Protein (U) [Mass/Vol] 1+ Abnormal NEGATIVE [facility], [place] Specific [place], UA 1.021 [facility], [place] Turbidity UA CLEAR CLEAR [place], [place] Urinalysis Comments NOT REPORTED [facility], [place] Urine Hgb Negative NEGATIVE [facility], [place] Urobilinogen, Urine Normal Normal [place], [place] Urinalysis, Routineon 2019 Acetoacetic Acid,Ur Negative Normal NEG [facility] Comment on above: Performed By: #### U A, UMICAO, MK #### [facility] [address] [place] [address] Health Advocate: Tre Ferrell MD Bilirubin, SemiQt,Ur Negative Normal NEG [facility] Comment on above: Performed By: #### U A, UMICAO, MK #### [facility] [address] [place] [address] Health Advocate: Tre Ferrell MD Color (U) YELLOW Normal YEL [facility] Comment on above: Performed By: #### U A, UMICAO, MK #### [facility] [address] [place] [address] Health Advocate: Tre Ferrell MD Glucose Ql (U) Negative Normal NEG [facility] Comment on above: Performed By: #### U A, UMICAO, MK #### [facility] [address] [place] [address] Health Advocate: Tre Ferrell MD Hemoglobin, Ur Negative Normal NEG [facility] Comment on above: Performed By: #### U A, UMICAO, MK #### [facility] [address] [place] [address] Health Advocate: Tre Ferrell MD Leukocyte esterase Test strip Ql (U) Negative Normal NEG [facility] Comment on above: Performed By: #### U A, UMICAO, MK #### [facility] [address] [place] [address] Health Advocate: Tre Ferrell MD Nitrite,Ur Negative Normal NEG [facility] Comment on above: Performed By: #### U A, UMICAO, MK #### [facility] [address] [place] [address] Health Advocate: Tre Ferrell MD pH (U) 6.0 [pH] Normal 5.0-8.0 [facility] Comment on above: Performed By: #### U A, UMMEGANO, MK #### [facility] [address] [place] [address] Health Advocate: Tre Ferrell MD Protein Ql (U) 1+ Abnormal NEG [facility] Comment on above: Performed By: #### U A, UMMEGANO, MK #### [facility] [address] [place] [address] Health Advocate: Tre Frerell MD Specific gravity (U) [Rel density] 1.021 Normal 1.005-1.030 [facility] Comment on above: Performed By: #### U A, UMMEGANO, MK #### [facility] [address] [place] [address] Health Advocate: Tre Ferrell MD Turbidity CLEAR Normal CLEAR [facility] Comment on above: Performed By: #### U A, UMMEGANO, MK #### [facility] [address] [place] [address] Health Advocate: Tre Ferrell MD Urobilinogen,Ur Normal Normal NORM [facility] Comment on above: Performed By: #### U A, UMMEGANO, MK #### [facility] [address] [place] [address] Health Advocate: Tre Ferrell MD Comment NOT REPORTED Normal [facility] Comment on above: Performed By: #### U A, UMICAO, MK #### [facility] [address] [place] [address] Health Advocate: Tre Ferrell MD Urinalysis,Microon 0 ----- Normal [facility] Comment on above: Performed By: #### U A, UMICAO, MK #### [facility] [address] [place] [address] Health Advocate: Tre Ferrell MD Casts LM.LPF (Urine sed) [#/Area] 2 TO 5 HYALINE Normal 0-8 [facility] Comment on above: Result Comment: Refe rence range defined for non-centrifuged specimen. Performed By: #### U A, UMICAO, MK #### [facility] [address] [place] [address] Health Advocate: Tre Ferrell MD Epithelial cells LM.HPF (Urine sed) [#/Area] 0 TO 2 Normal 0-5 [facility] Comment on above: Performed By: #### U A, UMICAO, MK #### [facility] [address] [place] [address] Health Advocate: Tre Ferrell MD RBC (U) [#/Vol] 2 TO 5 Normal 0-4 [facility] Comment on above: Result Comment: Refe rence range defined for non-centrifuged specimen. Performed By: #### U A, UMICAO, MK #### [facility] [address] [place] [address] Health Advocate: Tre Ferrell MD WBC (U) [#/Vol] 2 TO 5 Normal 0-5 [facility] Comment on above: Performed By: #### U A, UMICAO, MK #### [facility] [address] [place] [address] Health Advocate: Tre Ferrell MD Amorphous sediment LM Ql (Urine sed) NOT REPORTED Normal NONE [facility] Comment on above: Performed By: #### U A, UMICAO, MK #### [facility] [address] [place] [address] Health Advocate: Tre Ferrell MD Bacteria LM.HPF (Urine sed) [#/Area] NOT REPORTED Normal NONE [facility] Comment on above: Performed By: #### U A, UMICAO, MK #### [facility] [address] [place] [address] Health Advocate: Tre Ferrell MD Crystals LM Nom (Urine sed) NOT REPORTED Normal NONE [facility] Comment on above: Performed By: #### U A, UMMEGANO, MK #### [address] [address] Health Advocate: Tre Ferrell MD Epithelial, Renal NOT REPORTED Normal 0 [facility] Comment on above: Performed By: #### U A, UMICAO, MK #### [address] [address] Health Advocate: Tre Ferrell MD Mucus Strands NOT REPORTED Normal NONE [facility] Comment on above: Performed By: #### U A, BRANDY, MK #### [address] [address] Health Advocate: Tre Ferrell MD Other Observations NOT REPORTED Normal NREQ [facility] Comment on above: Performed By: #### U A, BRANDY, MK #### [address] [address] Health Advocate: Tre Ferrell MD Trichomonas NOT REPORTED Normal NONE [facility] Comment on above: Performed By: #### U A, BRANDY, MK #### [facility] [address] [place] [address] Health Advocate: Tre Ferrell MD Yeast LM Ql (Urine sed) NOT REPORTED Normal NONE [facility] Comment on above: Performed By: #### U A, UMISATU, MK #### [facility] [address] [place] [address] Health Advocate: Tre Ferrell MD Urine Drug Screenon 09-23-19 20 Amphetamine Screen, Ur Negative NEGATIVE [facility], [place] Comment on above: (Positive cutoff 1000 ng/mL) Barbiturate Screen, Ur Negative NEGATIVE [place], [place] Comment on above: (Positive cutoff 200 ng/mL) Benzodiazepine Screen, Urine Negative NEGATIVE [place], [place] Comment on above: (Positive cutoff 200 ng/mL) Buprenorphine Urine NOT REPORTED NEGATIVE [place], [place] Cannabinoid Scrn, Ur Positive Abnormal NEGATIVE [place], [place] Comment on above: (Positive cutoff 50 ng/mL) Cocaine Metabolite, Urine Negative NEGATIVE [place], [place] Comment on above: (Positive cutoff 300 ng/mL) Interpretation and review of laboratory results Abnormal [place], [place] MDMA, Urine NOT REPORTED NEGATIVE [place], [place] Methadone Screen, Urine Negative NEGATIVE [place], [place] Comment on above: (Positive cutoff 300 ng/mL) Methamphetamine, Urine NOT REPORTED NEGATIVE [place] Opiates, Urine Negative NEGATIVE [place] Comment on above: (Positive cutoff 300 ng/mL) Oxycodone Screen, Ur Negative NEGATIVE [place], [place] Comment on above: (Positive cutoff 100 ng/mL) Phencyclidine, Urine Negative NEGATIVE [place] Comment on above: (Positive cutoff 25 ng/mL) Propoxyphene, Urine NOT REPORTED NEGATIVE [place], [place] Test Information Assay provides medical screening only. The absence of expected drug(s) and/or metabolite(s) may indicate diluted or adulterated urine, limitations of testing or timing of collection. [place], [place] Comment on above: Testing for legal pu rposes should be confirmed by another method. To request confirmation of test result, please call the lab within 7 days of sample submission. Tricyclic Antidepressants, Urine NOT REPORTED NEGATIVE [place], [place] XR CHEST PORTABLEon 09-23-19 20 XR CHEST PORTABLE EXAMINATION: ONE XRAY VIEW OF THE CHEST 09/23/2019 10:11 am COMPARISON: 09/23/2019, 1:09 a.m. HISTORY: ORDERING SYSTEM PROVIDED HISTORY: intubated TECHNOLOGIST PROVIDED HISTORY: intubated 64-year-old intubated male FINDINGS: Portable supine view of the chest. quality assurance monitor leads overlie the chest. Enteric tube traverses the GE junction with distal tip in the lateral left upper quadrant likely within the body/fundus of the stomach. Endotracheal tube distal tip overlying the upper trachea approximately 8.3 cm above the level of the carlyn. No pneumothorax on limited portable supine imaging. Bandlike atelectasis and scarring at the left lung base. Cardiac and mediastinal contours unchanged and within normal limits. No acute focal airspace consolidation or pleural effusions. Visualized osseous structures remain unchanged. IMPRESSION: 1. Bandlike atelectasis and scarring at the left lung base. 2. No acute focal airspace consolidation or pleural effusions. 3. Enteric and endotracheal tube as above. Endotracheal tube is high in position. Advancement by an estimated 3.5 cm would be beneficial for optimal positioning. The findings were sent to the [facility] at 10:37 am on 09/23/2019to be communicated to a licensed caregiver. Interpreted by: Ghassan Sharpe MD Signed by: Ghassan Sharpe MD 09/23/19 Final result Normal [facility] EXAMINATION: ONE XRAY VIEW OF THE CHEST 09/23/2019 10:11 am COMPARISON: 09/23/2019, 1:09 a.m. HISTORY: ORDERING SYSTEM PROVIDED HISTORY: intubated TECHNOLOGIST PROVIDED HISTORY: intubated 64-year-old intubated male FINDINGS: Portable supine view of the chest. quality assurance monitor leads overlie the chest. Enteric tube traverses the GE junction with distal tip in the lateral left upper quadrant likely within the body/fundus of the stomach. Endotracheal tube distal tip overlying the upper trachea approximately 8.3 cm above the level of the carlyn. No pneumothorax on limited portable supine imaging. Bandlike atelectasis and scarring at the left lung base. Cardiac and mediastinal contours unchanged and within normal limits. No acute focal airspace consolidation or pleural effusions. Visualized osseous structures remain unchanged. [facility] [place], [place] [facility], [employer] Incoming Radiant Results From [employer] - 09/23/2019 10:40 AM EDT EXAMINATION: ONE XRAY VIEW OF THE CHEST 09/23/2019 10:11 am COMPARISON: 09/23/2019, 1:09 a.m. HISTORY: ORDERING SYSTEM PROVIDED HISTORY: intubated TECHNOLOGIST PROVIDED HISTORY: intubated 64-year-old intubated male FINDINGS: Portable supine view of the chest. quality assurance monitor leads overlie the chest. Enteric tube traverses the GE junction with distal tip in the lateral left upper quadrant likely within the body/fundus of the stomach. Endotracheal tube distal tip overlying the upper trachea approximately 8.3 cm above the level of the carlyn. No pneumothorax on limited portable supine imaging. Bandlike atelectasis and scarring at the left lung base. Cardiac and mediastinal contours unchanged and within normal limits. No acute focal airspace consolidation or pleural effusions. Visualized osseous structures remain unchanged. IMPRESSION: 1. Bandlike atelectasis and scarring at the left lung base. 2. No acute focal airspace consolidation or pleural effusions. 3. Enteric and endotracheal tube as above. Endotracheal tube is high in position. Advancement by an estimated 3.5 cm would be beneficial for optimal positioning. The findings were sent to the [facility] Communication [facility] at 10:37 am on 09/23/2019to be communicated to a licensed caregiver. [facility] [place] 1. Bandlike atelectasis and scarring at the left lung base. 2. No acute focal airspace consolidation or pleural effusions. 3. Enteric and endotracheal tube as above. Endotracheal tube is high in position. Advancement by an estimated 3.5 cm would be beneficial for optimal positioning. The findings were sent to the [facility] Communication [facility] at 10:37 am on 09/23/2019to be communicated to a licensed caregiver. [facility] [place] XR CHEST PORTABLE EXAMINATION: ONE XRAY VIEW OF THE CHEST 09/23/2019 1:20 am COMPARISON: None. HISTORY: ORDERING SYSTEM PROVIDED HISTORY: [facility] TECHNOLOGIST PROVIDED HISTORY: [facility] FINDINGS: And oral gastric tube extends to the stomach. Endotracheal tube tip is at the superior margin of the clavicles approximately 8 cm above the carlyn. Heart size and configuration are normal. There is mild left basilar atelectasis. Lungs are otherwise clear. No pneumothorax or pleural fluid. No acute bone finding. IMPRESSION: Mild left basilar atelectasis. Lungs are otherwise clear. OG tube courses to the stomach. The tip was not visualized. Endotracheal tube is borderline high in position as above. Interpreted by: Gianni Panda MD Signed by: Gianni Panda MD 09/23/19 Final result Normal [facility] Cholesterol in LDL [Mass/Vol] Mild left basilar atelectasis. Lungs are otherwise clear. OG tube courses to the stomach. The tip was not visualized. Endotracheal tube is borderline high in position as above. [place] EXAMINATION: ONE XRAY VIEW OF THE CHEST 09/23/2019 1:20 am COMPARISON: None. HISTORY: ORDERING SYSTEM PROVIDED HISTORY: [employer] TECHNOLOGIST PROVIDED HISTORY: [employer] FINDINGS: And oral gastric tube extends to the stomach. Endotracheal tube tip is at the superior margin of the clavicles approximately 8 cm above the carlyn. Heart size and configuration are normal. There is mild left basilar atelectasis. Lungs are otherwise clear. No pneumothorax or pleural fluid. No acute bone finding. [place], [place] [employer], [employer] Incoming Radiant Results From [employer] - 09/23/2019 2:30 AM EDT EXAMINATION: ONE XRAY VIEW OF THE CHEST 09/23/2019 1:20 am COMPARISON: None. HISTORY: ORDERING SYSTEM PROVIDED HISTORY: [employer] TECHNOLOGIST PROVIDED HISTORY: [employer] FINDINGS: And oral gastric tube extends to the stomach. Endotracheal tube tip is at the superior margin of the clavicles approximately 8 cm above the carlyn. Heart size and configuration are normal. There is mild left basilar atelectasis. Lungs are otherwise clear. No pneumothorax or pleural fluid. No acute bone finding. IMPRESSION: Mild left basilar atelectasis. Lungs are otherwise clear. OG tube courses to the stomach. The tip was not visualized. Endotracheal tube is borderline high in position as above. [place] Vital Signs Date Time Vital Sign Value Performing Clinician Facility 03-22-2023 16:00-0500 Body temperature 97.8 [degF] DO Ana Foley Work Phone: [facility] 03-22-2023 16:00-0500 Diastolic blood pressure 90 mm[Hg] DO Ana Foley Work Phone: [facility] 03-22-2023 16:00-0500 Heart rate 84 /min DO Ana Foley Work Phone: [facility] 03-22-2023 16:00-0500 Respiratory rate 18 /min DO Ana Foley Work Phone: [facility] 03-22-2023 16:00-0500 SaO2% (BldA) [Mass fraction] 99 % DO Ana Foley Work Phone: [facility] 03-22-2023 16:00-0500 Systolic blood pressure 146 mm[Hg] DO Ana Foley Work Phone: [facility] 03-22-2023 04:41-0500 Body weight 69.2 kg DO Ana Foley Work Phone: [facility] 03-18-2023 13:12-0500 Body height 175.26 cm DO Ana Foley Work Phone: [facility] 03-14-2023 14:19-0500 Heart rate 98 /min DO Ana Foley Work Phone: [facility] 03-14-2023 14:19-0500 Respiratory rate 18 /min DO Ana Foley Work Phone: [facility] 03-14-2023 14:19-0500 SaO2% (BldA) [Mass fraction] 100 % DO Ana Foley Work Phone: [facility] 03-14-2023 13:18-0500 Body height 175.26 cm DO Ana Foley Work Phone: [facility] 03-14-2023 13:18-0500 Body temperature 97.4 [degF] DO Ana Foley Work Phone: [facility] 03-14-2023 13:18-0500 Body weight 73.02 kg DO Ana Foley Work Phone: [facility] 03-14-2023 13:18-0500 Diastolic blood pressure 83 mm[Hg] DO Ana Foley Work Phone: [facility] 03-14-2023 13:18-0500 Systolic blood pressure 122 mm[Hg] DO Ana Foley Work Phone: [facility] 02-25-2023 10:00-0500 Body height 177.8 cm Ana Foley Other [employer] Other 02-25-2023 10:00-0500 Diastolic blood pressure 80 mm[Hg] Ana Foley Other [employer] Other 02-25-2023 10:00-0500 Respiratory rate 18 /min Ana Foley Other [employer] Other 02-25-2023 10:00-0500 SaO2% (BldA) [Mass fraction] 99 % Ana Foley Other [employer] Other 02-25-2023 10:00-0500 Systolic blood pressure 140 mm[Hg] Ana Foley Other [employer] Other 02-14-2023 18:00-0500 Diastolic blood pressure 52 mm[Hg] DO Ana Foley Work Phone: [facility] 02-14-2023 18:00-0500 Heart rate 93 /min DO Ana Foley Work Phone: [facility] 02-14-2023 18:00-0500 Respiratory rate 18 /min DO Ana Foley Work Phone: [facility] 02-14-2023 18:00-0500 SaO2% (BldA) [Mass fraction] 97 % DO Ana Foley Work Phone: [facility] 02-14-2023 18:00-0500 Systolic blood pressure 105 mm[Hg] DO Ana Foley Work Phone: [facility] 02-14-2023 14:31-0500 Body temperature 97.1 [degF] DO Ana Foley Work Phone: [facility] 02-06-2023 11:31-0500 Diastolic blood pressure 82 mm[Hg] DO Ana Foley Work Phone: [facility] 02-06-2023 11:31-0500 Heart rate 80 /min DO Ana Foley Work Phone: [facility] 02-06-2023 11:31-0500 Respiratory rate 18 /min DO Ana Foley Work Phone: [facility] 02-06-2023 11:31-0500 SaO2% (BldA) [Mass fraction] 100 % DO Ana Foley Work Phone: [facility] 02-06-2023 11:31-0500 Systolic blood pressure 128 mm[Hg] DO Ana Foley Work Phone: [facility] 02-06-2023 08:00-0500 Body temperature 98.1 [degF] DO Ana Foley Work Phone: [facility] 02-06-2023 06:00-0500 Body weight 72.6 kg DO Ana Foley Work Phone: [facility] 02-04-2023 12:53-0500 Body height 180.34 cm DO Ana Foley Work Phone: [facility] 02-04-2023 00:02-0500 Diastolic blood pressure 66 mm[Hg] DO Ana Foley Work Phone: [facility] 02-04-2023 00:02-0500 Heart rate 75 /min DO Ana Foley Work Phone: [facility] 02-04-2023 00:02-0500 Respiratory rate 16 /min DO Ana Foley Work Phone: [facility] 02-04-2023 00:02-0500 SaO2% (BldA) [Mass fraction] 99 % DO Ana Foley Work Phone: [phone] [place] [address] 02-04-2023 00:02-0500 Systolic blood pressure 103 mm[Hg] DO Ana Foley Work Phone: [facility] 02-03-2023 19:08-0500 Body height 180.34 cm DO Ana Foley Work Phone: [facility] 02-03-2023 19:08-0500 Body temperature 97.5 [degF] DO Ana Foley Work Phone: [facility] 02-03-2023 19:08-0500 Body weight 76.2 kg DO Ana Foley Work Phone: [facility] 01-31-2023 08:29-0500 Body height 180.34 cm DO Ana Foley Work Phone: [facility] 01-31-2023 08:29-0500 Body mass index (BMI) [Ratio] 23.7 kg/m2 DO Ana Foley Work Phone: [facility] 01-31-2023 08:29-0500 Body weight 77.11 kg DO Ana Foley Work Phone: [facility] 01-31-2023 08:10-0500 Body temperature 98.6 [degF] DO Ana Foley Work Phone: [facility] 01-31-2023 08:10-0500 Diastolic blood pressure 87 mm[Hg] DO Ana Foley Work Phone: [facility] 01-31-2023 08:10-0500 Heart rate 96 /min DO Ana Foley Work Phone: [facility] 01-31-2023 08:10-0500 Respiratory rate 20 /min DO Ana Foley Work Phone: [facility] 01-31-2023 08:10-0500 Systolic blood pressure 136 mm[Hg] DO Ana Foley Work Phone: [facility] 12-16-2022 16:00-0400 Diastolic blood pressure 82 mm[Hg] Thalia O'Gianni PA-C Work Phone: [facility] 12-16-2022 16:00-0400 Heart rate 84 /min Thalia O'Gianni PA-C Work Phone: [facility] 12-16-2022 16:00-0400 Systolic blood pressure 117 mm[Hg] Thalia O'Gianni PA-C Work Phone: [facility] 12-07-2022 14:20-0400 Diastolic blood pressure 78 mm[Hg] DO Ana Foley Work Phone: [facility] 12-07-2022 14:20-0400 Heart rate 82 /min DO Ana Foley Work Phone: [facility] 12-07-2022 14:20-0400 Respiratory rate 18 /min DO Ana Foley Work Phone: [facility] 12-07-2022 14:20-0400 SaO2% (BldA) [Mass fraction] 97 % DO Ana Foley Work Phone: [facility] 12-07-2022 14:20-0400 Systolic blood pressure 127 mm[Hg] DO Ana Foley Work Phone: [facility] 12-07-2022 11:12-0400 Body height 177.8 cm DO Ana Foley Work Phone: [facility] 12-07-2022 11:12-0400 Body weight 70.76 kg DO Ana Foley Work Phone: [facility] 11-22-2022 09:13-0400 Body height 177.8 cm DO Ana Foley Work Phone: [facility] 11-22-2022 09:13-0400 Body mass index (BMI) [Ratio] 21.7 kg/m2 DO Ana Foley Work Phone: [facility] 11-22-2022 09:13-0400 Body weight 68.49 kg DO Ana Foley Work Phone: [facility] 11-22-2022 09:04-0400 Diastolic blood pressure 85 mm[Hg] DO Ana Foley Work Phone: [facility] 11-22-2022 09:04-0400 Heart rate 90 /min DO Ana Foley Work Phone: [facility] 11-22-2022 09:04-0400 Respiratory rate 18 /min DO Ana Foley Work Phone: [facility] 11-22-2022 09:04-0400 Systolic blood pressure 119 mm[Hg] DO Ana Foley Work Phone: [facility] 11-10-2022 08:00-0400 Body height 177.8 cm Ana Vicenta Other [employer] Other 11-10-2022 08:00-0400 Diastolic blood pressure 80 mm[Hg] Ana Vicenta Other [employer] Other 11-10-2022 08:00-0400 Respiratory rate 18 /min Ana Foley Other [employer] Other 11-10-2022 08:00-0400 SaO2% (BldA) [Mass fraction] 99 % Ana Foley Other [employer] Other 11-10-2022 08:00-0400 Systolic blood pressure 116 mm[Hg] Ana Foley Other [employer] Other 10-25-2022 08:26-0400 Body temperature 97.4 [degF] DO Ana Foley Work Phone: [facility] 09-20-2022 02:25-0400 SaO2% (BldA) [Mass fraction] 99 % ANA FOLEY [facility] Comment on above: Order Comment: Specimen Type: ARTERIAL B LOOD SPECIMENOrdering Facility: [facility] Address: [address] [place] [address] Performed By: #### A LLBG ####[facility] LABIA [id number] [address] 09-19-2022 15:18-0400 SaO2% (BldA) [Mass fraction] 99 % ANA FOLEY [facility] Comment on above: Order Comment: Specimen Type: ARTERIAL B LOOD SPECIMENOrdering Facility: [facility] Address: [address] [place] [address] Performed By: #### A LLBG ####[facility]IA [id number] [address] 09-19-2022 11:14-0400 SaO2% (BldA) [Mass fraction] 99 % ANA FOLEY [facility] Comment on above: Order Comment: Specimen Type: ARTERIAL B LOOD SPECIMENOrdering Facility: [facility] Address: [address] [place] [address] Performed By: #### A LLBG ####[facility] LABCLIA [id number] [address] 09-19-2022 07:00-0400 SaO2% (BldA) [Mass fraction] 99 % ANA FOLEY [facility] Comment on above: Order Comment: Specimen Type: ARTERIAL B LOOD SPECIMENOrdering Facility: [facility] Address: [address] [place] [address] Performed By: #### A LLBG ####[facility] LABIA [id number] [address] [address] [place] 09-19-2022 05:25-0400 SaO2% (BldA) [Mass fraction] 96 % ANA FOLEY [facility] Comment on above: Order Comment: Specimen Type: ARTERIAL B LOOD SPECIMENOrdering Facility: [facility] Address: [address] [place] [address] Performed By: #### A LLBG ####[facility] LABIA [id number] [address] [address] [place] 01-01-2022 12:30-0400 Body height 177.8 cm Anayani Foley Other [employer] Other 01-01-2022 12:30-0400 Diastolic blood pressure 72 mm[Hg] Ana Vicenta Other [employer] Other 01-01-2022 12:30-0400 Respiratory rate 18 /min Ana Vicenta Other [employer] Other 01-01-2022 12:30-0400 SaO2% (BldA) [Mass fraction] 98 % Ana Vicenta Other [employer] Other 01-01-2022 12:30-0400 Systolic blood pressure 120 mm[Hg] Ana Foley Other [employer] Other 10-09-2019 08:05-0400 Body Temperature 97.9 [degF] [employer] [place] 10-09-2019 08:05-0400 BP Diastolic 69 mm[Hg] [facility] [place] , [place] 10-09-2019 08:05-0400 BP Systolic 100 mm[Hg] [employer] [facility] , [place] 10-09-2019 08:05-0400 Pulse (Heart Rate) 64 /min Fercho Lehman [facility], [place] 10-09-2019 08:05-0400 Pulse Oximetry 97 % Fercho Lehman [facility] , [place] 10-09-2019 08:05-0400 Respiratory Rate 12 /min Fercho Lehman [facility], [place] 10-08-2019 13:58-0400 Height 180.3 cm Fercho Lehman [facility] , [place] 09-27-2019 06:00-0400 BMI (Body Mass Index) 23.79 kg/m2 Fercho Lehman [facility], [place] 09-27-2019 06:00-0400 Body weight 77.38 kg Fercho Lehman [facility] , [place] 09-23-2019 03:18-0400 Respiratory rate NOT REPORTED ERIN LUDWIG [facility] Comment on above: Performed By: #### ERTPF #### [employer] [facility] [address] [place] [address] Health Advocate: Tre Ferrell MD 09-23-2019 01:51-0400 Respiratory rate NOT REPORTED Fercho Lehman [place], [place] Encounters Encounter Date Encounter Type Care Provider Facility Start: 04-13-2023 End: 04-13-2023 ambulatory Ana Foley Other [facility] [employer] Other Start: 04-13-2023 Telephone encounter Ana Foley [facility] [place] Start: 04-04-2023 ambulatory Lavonne Luz ty:[facility] Start: 2023 End: 03-22-2023 Evaluation and management of inpatient Jim Arcos Facility:[facility] Start: 03-15-2023 End: 03-22-2023 Evaluation and management of inpatient DO Ana Foley Work Phone: [facility] [place] [facility] Work Phone: Start: 03-14-2023 End: 03-14-2023 Emergency department patient visit Ana A Foley Facility:[facility] Start: 03-14-2023 End: 03-14-2023 Emergency department patient visit DO Ana Foley Work Phone: [facility] Work Phone: Start: 03-02-2023 Orders Only Erika Duarte MD Work Phone: Urology Comment on above: Neurogenic bladder ( Primary Dx); Quadriplegia (HCC); History of spinal cord injury Start: 03-01-2023 Telephone encounter Alana Avila [facility] Comment on above: Orders Start: 02-28-2023 End: 02-28-2023 ambulatory Ana Foley Other [employer] Other Start: 02-28-2023 Telephone encounter Ana Foley [facility] Start: 02-25-2023 End: 02-25-2023 ambulatory Ana Foley Other [employer] Other Start: 02-25-2023 Office outpatient vi sit 25 minutes Ana Foley [facility] Start: 02-18-2023 End: 02-18-2023 ambulatory Ana Foley Other [employer] Other Start: 02-18-2023 Telephone encounter Anayani Foley [facility] Start: 02-16-2023 End: 02-16-2023 ambulatory Ana Foley Other [employer] Other Start: 02-16-2023 Telephone encounter Ana Foley [facility] Start: 02-14-2023 End: 02-14-2023 Emergency department patient visit Ana Foley Facility:[facility] Start: 02-14-2023 End: 02-14-2023 Emergency department patient visit DO Ana Foley Work Phone: [facility] Work Phone: Start: 02-11-2023 End: 02-11-2023 ambulatory Ana Foley Other [employer] Other Start: 02-11-2023 Telephone encounter Anayani Foley [facility] Start: 02-07-2023 End: 02-07-2023 ambulatory Ana Foley Other [employer] Other Start: 02-07-2023 Telephone encounter Ana Foley [facility] Start: 02-04-2023 End: 02-06-2023 Evaluation and management of inpatient Magdaleno Paige Facility:[facility] Start: 02-03-2023 End: 02-06-2023 Evaluation and management of inpatient DO Anayani Foley Work Phone: [facility] [place] [facility] Work Phone: Start: 02-03-2023 End: 02-03-2023 ambulatory ANA VERONICA FOLEY Facility:[facility] Start: 02-03-2023 End: 02-03-2023 Patient encounter procedure Nurse Urol Work Phone: Urology Comment on above: Neurogenic bladder ( Primary Dx) Start: 01-31-2023 End: 01-31-2023 ambulatory Annabella Marino Facility:[facility] Start: 01-31-2023 End: 01-31-2023 ambulatory DO Ana Omar Foley Work Phone: [facility] Work Phone: Start: 01-31-2023 End: 01-31-2023 Discharged Recurring DO Ana Vicenta Work Phone: [facility] [place] Work Phone: Start: 01-31-2023 Registered Recurring DO Ana Vicenta Work Phone: [facility] [place] Work Phone: Start: 01-25-2023 End: 01-25-2023 ambulatory Ana Foley Other [employer] Other Start: 01-25-2023 Telephone encounter Ana Foley [facility] Start: 01-21-2023 End: 01-21-2023 ambulatory Ana Foley Other [employer] Other Start: 01-21-2023 Telephone encounter Ana Foley [facility] Start: 01-10-2023 End: 01-10-2023 Orders Only Anoop Carver MD Work Phone: Urology Comment on above: Acute cystitis witho ut hematuria (Primary Dx) Start: 01-09-2023 Orders Only Erika Duarte MD Work Phone: Urology Comment on above: Neurogenic bladder ( Primary Dx) Start: 01-05-2023 End: 01-05-2023 ambulatory Ana Foley Other [employer] Other Start: 01-05-2023 Telephone encounter Ana Foley [facility] [place] Start: 12-20-2022 End: 12-20-2022 ambulatory Ana Foley Other [employer] Other Start: 12-20-2022 Telephone encounter Ana Foley [facility] Start: 12-16-2022 End: 12-16-2022 Patient encounter procedure Thalia Bosch PA-C Work Phone: Urology Comment on above: Nephrolithiasis (Maria Elena danisha Dx); Muscle spasms of both lower extremities; Tremor, unspecified; Suprapubic catheter (HCC) Start: 12-16-2022 End: 12-17-2022 ambulatory Thalia Bosch PA-C Work Phone: Urology Start: 12-09-2022 End: 12-09-2022 ambulatory Ana Foley Other [employer] Other Start: 12-09-2022 Telephone encounter Ana Foley [facility] [place] Start: 12-08-2022 End: 12-08-2022 ambulatory Ana Foley Other [employer] Other Start: 12-08-2022 Telephone encounter Ana Foley [facility] [place] Start: 12-07-2022 End: 12-07-2022 ambulatory Ana Foley Other [employer] Other Start: 12-07-2022 Telephone encounter Ana Foley [facility] Start: 12-07-2022 End: 12-07-2022 Emergency department patient visit Ana Omar Foley Facility:[facility] Start: 12-07-2022 End: 12-07-2022 Emergency department patient visit DO Ana Foley Work Phone: [facility] Work Phone: Start: 12-03-2022 End: 12-03-2022 ambulatory Ana Foley Other [employer] Other Start: 12-03-2022 Telephone encounter Ana Foley [facility] [place] Start: 11-25-2022 End: 11-25-2022 Orders Only Keeley Resendez PA Work Phone: Urology Comment on above: Neurogenic bladder ( Primary Dx) Start: 11-23-2022 End: 11-23-2022 ambulatory Ana Foley Other [employer] Other Start: 11-23-2022 Telephone encounter Anaomar Foley [facility] [place] Start: 11-22-2022 Telephone encounter Anayani Foley [facility] Start: 11-22-2022 End: 11-23-2022 ambulatory DO Ana Foley Work Phone: [employer] Other Start: 11-22-2022 End: 11-22-2022 Discharged Recurring DO Ana Foley Work Phone: [facility] [place] Work Phone: Start: 11-17-2022 End: 11-17-2022 ambulatory Ana Foley Other [employer] Other Start: 11-17-2022 Telephone encounter Ana Foley [facility] [place] Start: 11-12-2022 Telephone encounter Valeria aaron Comment on above: Returning Patient's Call Start: 11-10-2022 End: 11-10-2022 ambulatory Ana Foley Other [employer] Other Start: 11-10-2022 Encounter for genera l adult medical examination without abnormal findings Ana Foley [facility] [place] Start: 11-10-2022 Office outpatient vi sit 25 minutes Ana Foley [facility] [place] Start: 10-29-2022 End: 10-29-2022 ambulatory Ana Foley Other [employer] Other Start: 10-29-2022 Telephone encounter Ana Foley [facility] [place] Start: 10-27-2022 End: 10-28-2022 ambulatory ANA FOLEY Facility:[facility] Start: 10-27-2022 End: 10-27-2022 Patient encounter procedure Erika Duarte MD Work Phone: Urology Comment on above: Nephrolithiasis (Maria Elena danisha Dx); Neurogenic bladder; Encounter for care or replacement of suprapubic tube (HCC) Start: 10-27-2022 End: 10-27-2022 Subsequent hospital visit by physician Xr Main Q[facility] Radiology Comment on above: Nephrolithiasis [N20 .0] Start: 10-26-2022 Orders Only Erika Duarte MD Work Phone: Urology Start: 10-13-2022 Orders Only Heena Stevens MD Work Phone: Urology Comment on above: Nephrolithiasis (Maria Elena danisha Dx) Start: 10-12-2022 ambulatory Erika Duarte MD Work Phone: Urology Comment on above: post-op check in Start: 10-12-2022 E-mail encounter fro m caregiver Erika Duarte MD Work Phone: [facility] Start: 10-11-2022 Admission to establishment Dewayne Rodriguez MD Work Phone: Infectious Disease Comment on above: [employer] [facility]; Hospital Admission Start: 10-11-2022 ambulatory Dewayne velarde MD Work Phone: [facility] Start: 10-09-2022 End: 10-14-2022 Evaluation and management of inpatient [facility] Facility:[facility] Start: 10-05-2022 End: 10-05-2022 Orders Only Dewayne Rodriguez MD Work Phone: Infectious Disease Comment on above: Pyelonephritis (Prim socorro Dx) [employer] [facility] Start: 10-05-2022 Telephone encounter [facility] Medicine [place] Start: 09-27-2022 ambulatory Dewayne velarde MD Work Phone: Infectious Disease Comment on above: [employer] Agency Start: 09-23-2022 ambulatory Dewayne velarde MD Work Phone: [facility] Comment on above: [employer] Start Start: 09-19-2022 End: 09-27-2022 Evaluation and management of inpatient ABRAHAN LORETTAUNMI Facility:[facility] Start: 09-09-2022 Orders Only Erika Duarte MD Work Phone: Urology Comment on above: Nephrolithiasis (Maria Elena danisha Dx); Quadriplegia (HCC) Start: 09-08-2022 End: 09-08-2022 ambulatory Anaomar Foley Other [employer] Other Start: 09-08-2022 Telephone encounter Anaomar Foley [facility] [place] Start: 09-01-2022 End: 09-02-2022 ambulatory KORY BOOTH Facility:[facility] Start: 09-01-2022 End: 09-01-2022 Patient encounter procedure Erika Duarte MD Work Phone: Urology Comment on above: Nephrolithiasis (Maria Elena danisha Dx); Neurogenic bladder; Encounter for care or replacement of suprapubic tube (HCC); Calculus of kidney Start: 08-30-2022 Orders Only Erika Duarte MD Work Phone: Urology Start: 08-24-2022 End: 08-24-2022 ambulatory Ana Foley Other [employer] Other Start: 08-24-2022 Telephone encounter Ana Foley [facility] Start: 08-09-2022 Admission to establishment Belinda Mcghee MD Work Phone: Infectious Disease Comment on above: [employer] [facility]; Hospital Admission Start: 08-09-2022 End: 08-09-2022 ambulatory Belinda Mcghee MD Work Phone: [facility] Start: 08-09-2022 Telephone encounter Ana Foley [facility] Start: 08-06-2022 End: 08-13-2022 Evaluation and management of inpatient DAMEON DUARTE Facility:[facility] Start: 08-06-2022 Telephone encounter Valeria aaron Comment on above: 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 No answer. ) Start: 08-02-2022 End: 08-02-2022 ambulatory Belinda Mcghee MD Work Phone: Infectious Disease Comment on above: Outside Lab Results (copat) Start: 08-02-2022 Telephone encounter Belinda nguyen MD Work Phone: Infectious Disease Comment on above: Midline Start: 07-28-2022 ambulatory Shila Patino RN NURS E SHUTTLE FIXER Comment on above: Medication Question Start: 07-27-2022 End: 07-27-2022 ambulatory Dena Grant RNsiderographer Comment on above: [employer] [facility] Start: 07-27-[facility] [place] Start: 07-26-2022 End: 07-26-2022 ambulatory Belinda Mcghee MD Work Phone: [employer] Other Comment on above: [employer] Start Start: 07-26-2022 Telephone encounter Ana [facility] [place] Start: 07-21-2022 End: 07-27-2022 Evaluation and management of inpatient DORI OSCARKATRINErica Facility:[facility] Start: 07-19-2022 End: 07-21-2022 Evaluation and management of inpatient DR MINERVA REN Facility: Start: 07-14-2022 End: 07-14-2022 ambulatory ANA FOLEY Facility:[facility] Start: 07-13-2022 End: 07-13-2022 ambulatory ERIKA DUARTE Facility:[facility] Start: 06-24-2022 ambulatory William Giraldoi ty:[id number] Start: 06-09-[address] WILLIAM STRICKLAND . Fac ility:[facility] Start: 05-14-2022 Encounter for other preprocedural examination YAZMIN CHILEL [facility] Start: 05-10-2022 End: 05-11-[address] JACQUELINE EVANGELISTA Facility:[facility] Start: 05-10-2022 End: 05-11-2022 Encounter for other preprocedural examination DR JACQUELINE EVANGELISTA Facility:[facility] Start: 05-01-2022 End: 05-01-[address] NONE LISTED REQUEST Facility:[facility] Start: 04-23-2022 End: 04-23-2022 ambulatory SDLINCOLNJasen [facility] Start: 04-16-2022 Encounter for preprocedural cardiovascular examination DR WILLIAM STRICKLAND . [facility] Start: 04-15-2022 ambulatory NONE LISTED REQUEST Facility:[facility] Start: 04-12-2022 End: 04-12-2022 ambulatory Ana Foley Other [employer] Other Start: 04-12-2022 Telephone encounter Ana Foley [facility] [place] Start: 04-09-2022 End: 04-10-2022 ambulatory NONE LISTED REQUEST Facility:[facility] Start: 04-09-2022 End: 04-10-2022 Encounter for preprocedural cardiovascular examination NONE LISTED REQUEST Facility: Start: 04-08-2022 End: 04-08-2022 ambulatory Ana Foley Other [employer] Other Start: 04-08-2022 Telephone encounter Ana Foley [facility] [place] Start: 04-05-2022 End: 04-06-2022 ambulatory Robbi Quezada Facility:[facility] Start: 03-30-2022 End: 03-30-2022 ambulatory Ana Foley Other [employer] Other Start: 03-30-2022 Telephone encounter Ana Foley [facility] [place] Start: 03-28-2022 End: 04-09-[address] DOCTOR ANDERSON Facility:[facility] Start: 03-05-2022 End: 03-05-2022 ambulatory Anayani Foley Other [employer] Other Start: 03-05-2022 Telephone encounter Ana Foley [facility] [place] Start: 03-01-2022 End: 03-01-2022 ambulatory Ana Foley Other [employer] Other Start: 03-01-2022 Telephone encounter Ana Foley [facility] [place] Start: 02-22-2022 End: 02-22-2022 ambulatory NON STAFF [facility] Work Phone: Start: 02-22-2022 End: 02-22-2022 Patient encounter procedure [facility]-CT Scan Main [place] Start: 02-06-2022 Encounter for genera l adult medical examination without abnormal findings DR DOCTOR ANDERSON [facility] Start: 02-01-2022 End: 02-02-[address] DOCTOR ANDERSON Facility:[facility] Start: 02-01-2022 End: 02-02-2022 Encounter for general adult medical examination without abnormal findings DR DOCTOR ANDERSON Facility:[facility] Start: 01-27-2022 End: 01-27-2022 ambulatory Ana Foley Other [employer] Other Start: 01-27-2022 Telephone encounter Ana Foley [facility] [place] Start: 01-18-2022 End: 01-18-2022 ambulatory Ana Foley Other [employer] Other Start: 01-18-2022 Telephone encounter Ana Foley [facility] [place] Start: 01-01-2022 End: 01-01-2022 ambulatory Ana Foley Other [employer] Other Start: 01-01-2022 Encounter for genera l adult medical examination without abnormal findings Ana Foley [facility] [place] Start: 01-01-2022 Office outpatient vi sit 25 minutes Ana Foley [facility] [place] Start: 12-22-2021 End: 12-22-2021 ambulatory Pamela Hill Other [employer] Other Start: 12-22-2021 Telephone encounter Pamela [facility] [place] Start: 10-12-2021 End: 03-27-[address] DOCTOR ANDERSON Facility: Start: 09-23-2019 End: 10-09-2019 Evaluation and management of inpatient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 09-23-2019 ANION GAP (CALC) POC Sergio Ludwig Work Phone: Start: 09-23-2019 ARTERIAL BLOOD GAS, POC rEin Ludwig Work Phone: Start: 09-23-2019 Blood count hemoglobin Erin Ludwig Work Phone: Start: 09-23-2019 CALCIUM, IONIC (POC) Sergio Avila Lduwig Work Phone: Start: 09-23-2019 Chloride [Moles/Vol] Sergio Ludwig Work Phone: Start: 09-23-2019 CREATININE W/GFR POI NT OF CARE Erin Avila Oziel Work Phone: Start: 09-23-2019 Gluc bld gluc mntr d ev cleared fda spec home use Erin Avila Oziel Work Phone: Start: 09-23-2019 LACTIC ACID,POINT OF CARE Erin Avila Ludwig Work Phone: Start: 09-23-2019 Potassium [Moles/Vol] A kermit Austin Ludwig Work Phone: Start: 09-23-2019 Sodium [Moles/Vol] Maxwell Avila Ludwig Work Phone: Start: 09-23-2019 PATIENT STATUS (FROM ED OR OR/PROCEDURAL) ERIN OZIEL Start: 09-23-2019 Ct cervical spine w/ o contrast material ERIN LUDWIG Start: 09-23-2019 Ct head/brain w/o co ntrast material ERIN LUDWIG Start: 09-23-2019 Ct maxillofacial w/o contrast material ERIN OZIEL Start: 09-23-2019 Assay of ammonia Nina Zaire Work Phone: Start: 09-23-2019 Drug screen class list a ERIN LUDWIG Start: 09-23-2019 Urinalysis microscopic only ERIN LUDWIG Start: 09-23-2019 Urnls dip stick/tabl et rgnt auto w/o microscopy ERIN LUDWIG Start: 09-23-2019 Radiologic exam ches t single view ERIN LUDWIG Start: 09-23-2019 Cell enumeration imm une selectj & id fluid spec ERIN LUDWIG Start: 09-23-2019 TYPE AND SCREEN ERIN SRINIVASAN Start: 09-23-2019 COVID-19 Nina Rit truong Work Phone: Start: 09-23-2019 Speech and language therapy regime Veronique Partida Work Phone: Start: 09-23-2019 Ct lumbar spine w/o contrast material Fede Gibbons Work Phone: Start: 09-23-2019 Ct thoracic spine w/ o contrast material Fede Gibbons Work Phone: Start: 09-23-2019 Ct thorax w/contrast material Fede Nelson Gibbons Work Phone: Start: 09-23-2019 Antibody screen Claudia Torre Start: 09-23-2019 Ct cervical spine w/ o contrast material Fede Gibbons Work Phone: Start: 09-23-2019 Ct head/brain w/o co ntrast material Fede Gibbons Work Phone: Start: 09-23-2019 Ct maxillofacial w/o contrast material Fede Gibbons Work Phone: Start: 09-23-2019 Drug screen class list a Fercho Torre Work Phone: Start: 09-23-2019 Urinalysis microscopic only Fercho Torre Work Phone: Start: 09-23-2019 Urnls dip stick/tabl et rgnt auto w/o microscopy Fercho Torre Work Phone: Start: 09-23-2019 Radiologic exam ches t single view Fede Gibbons Work Phone: Start: 09-23-2019 Blood typing serologic abo Fercho Torre Work Phone: Start: 09-23-2019 TRAUMA PANEL Fercho Torre Work Phone: Plan of Treatment Date Care Activity Detail Author Start: 10-13-2025 DIABETES SCREEN DIABETES SCREEN [facility] Start: 10-13-2025 Diabetes Screening Diabetes Screenin g [facility] Start: 10-12-2025 DIABETES SCREEN DIABETES SCREEN [facility] Start: 10-11-2025 DIABETES SCREEN DIABETES SCREEN [facility] Start: 09-22-2025 DIABETES SCREEN DIABETES SCREEN [facility] Start: 08-11-2025 DIABETES SCREEN DIABETES SCREEN [facility] Start: 08-09-2025 DIABETES SCREEN DIABETES SCREEN [facility] Start: 08-02-2025 DIABETES SCREEN [facility]CREEN [facility] Start: 07-22-2025 DIABETES SCREEN DIABETES SCREEN [facility] Start: 03-22-2023 [facility] Start: 2023 Administration of prophylactic treatment [facility] Start: 2023 [facility] Start: 2023 Referral to infectio us diseases physician [facility] Start: [address] [facility] Start: 2023 [facility] Start: 03-14-2023 Bacteria identified in Urine by Culture [facility] Start: 02-06-2023 [facility] Start: 02-04-[address] [facility] Start: 02-04-2023 [facility] Start: 01-10-2023 End: 03-12-2023 Bacteria identified in Urine by Culture [facility] Work Phone: Comment on above: Expected: 01/10/2023 , Expires: 03/12/2023 Start: 11-26-2022 Influenza vaccination [facility] Start: 03-28-2022 ADVANCE DIRECTIVE DISCUSSION ADVANCE DIRECTIVE DISCUSSION [facility] Start: 03-28-2022 DEPRESSION ASSESSMENT DEPRESSION ASS ESSMENT [facility] Start: 09-22-2020 HbA1c (Bld) [Mass fraction] A1C test (Diabetic or Prediabetic) [place], [place] Start: 2020 Pneumococcal Vaccine : 65+ (1 - PCV) Pneumococcal Vaccine: 65+ (1 - PCV) [facility] Start: 2020 PNEUMOCOCCAL: 65+ (1 - PCV) PNEUMOCOCCAL: 65+ (1 - PCV) [facility] Start: 11-27-2019 Influenza vaccination Flu vaccine (# 1) [place], [place] Start: 2015 RSV Vaccine (1 - 1-d ose 60+ series) RSV Vaccine (1 - 1-dose 60+ series) [facility] Start: 2010 PROSTATE CANCER SCREENING DISCUSSION PROSTATE CANCER SCREENING DISCUSSION [facility] Start: 2005 Screening for malign ant neoplasm of colon Colon cancer screen colonoscopy [place], [place] Start: 2005 Shingles Vaccine (1 of 2) Shingles Vaccine (1 of 2) [place], [place] Start: 2005 SHINGRIX VACCINE (1 of 2) SHINGRIX VACCINE (1 of 2) [facility] Start: 2000 COLOGUARD (FIT-DNA) COLOGUARD (FIT-D NA) [facility] Start: 2000 Colonoscopy COLONOSCOPY [facility] Start: 2000 COLORECTAL CANCER SCREENING COLORECTAL CANCER SCREENING [facility] Start: [address] COLONOGRAPHY [facility] Start: 2000 FECAL OCCULT BLOOD FECAL OCCULT BLOO D [facility] Start: 2000 SIGMOIDOSCOPY SIGMOIDOSCOPY [facility] Start: 1995 Lipid panel Lipid screen [place], [place] Start: 1990 Lipid 1996 panel - S jennifer or Plasma Lipid Screening [facility] Start: 1990 LIPID SCREEN LIPID SCREEN [facility] Start: 1974 DTaP/Tdap/Td vaccine (1 - Tdap) DTaP/Tdap/Td vaccine (1 - Tdap) [place], [place] Start: 1974 Urine microalbumin profile [facility] Start: 1970 HIV screening HIV screen [place], [place] Start: 1955 COVID-19 VACCINE (#1) COVID-19 VACCI NE (#1) [facility] Start: 1955 Hepatitis C screening Hepatitis C sc reen [place], [place] Acapella Acapella Respira tory Care Routine Daily until discontinued starting 09/27/2019 [place], [place] Comment on above: Daily until disconti nued starting 09/27/2019 Bacteria identified in Urine by Culture [facility] CATHETER INSERT-HERNANDEZ CATHETER I NSERT-HERNANDEZ Procedures Routine Neurogenic bladder Ordered: 01/09/2023 [facility] Work Phone: Comment on above: Ordered: 01/09/2023 Change cystostomy tu be simple IR SUPRAPUBIC TUBE EXCHANGE Radiology Routine Neurogenic bladder Ordered: 11/25/2022 [facility] Work Phone: Comment on above: Ordered: 11/25/2022 End: 09-23-[address] 3D RECONSTRUCTION Imaging Routine Once for 1 Occurrences starting 09/23/2019 until 09[facility] on above: Once for 1 Occurrenc es starting 09/23/2019 until 09/23/[address] 3D RECON STRUCTION Imaging STAT 09/23/2019 2:14 AM [facility]T [facility] End: 10-01-2023 Ct abdomen & pelvis w/o contrast material CT FLANK WO IVCON Radiology Routine Calculus of kidney 1 Occurrences starting 09/01/2022 until 10/01/2023 [facility] Work Phone: Comment on above: 1 Occurrences starti ng 09/01/2022 until 10/01/2023 HERNANDEZ CHANGE HERNANDEZ CHANGE Pro cedures Routine Neurogenic bladder Quadriplegia (HCC) History of spinal cord injury Ordered: 03/02/2023 [facility] Work Phone: Comment on above: Ordered: 03/02/2023 HHN Treatment HHN Treatment Re spiratory Care STAT 4X Daily until discontinued starting 09/25/2019 [facility] [place] Comment on above: 4X Daily until disco ntinued starting 09/25/2019 Incentive spirometry RT Incentiv e spirometry RT Respiratory Care Routine Every 2hr while awake until discontinued starting 09/27/2019 [facility] Comment on above: Every 2hr while awak e until discontinued starting 09/27/2019 Initiate Oxygen Ther apy Protocol Initiate Oxygen Therapy Protocol Respiratory Care Routine Daily until discontinued starting 09/23/2019 [facility] Comment on above: Daily until disconti nued starting 09/23/2019 IR CENTRAL LINE REMOVAL IR CENTR AL LINE REMOVAL Radiology Routine Pyelonephritis Ordered: 10/05/2022 [facility] Work Phone: Comment on above: Ordered: 10/05/[address] IR NEPHROSTOMY TUBE PLACE Radiology Routine Nephrolithiasis Quadriplegia (HCC) Ordered: 09/09/2022 [facility] Work Phone: Comment on above: Ordered: 09/09/2022 Patient Education [facility] Work Phone: Patient referral [facility] Work Phone: End: 11-26-2023 Radiologic exam abdomen 3+ views XR ABDOMEN 3V KUB W/OBLIQUES Radiology Routine Nephrolithiasis Neurogenic bladder Encounter for care or replacement of suprapubic tube (HCC) 1 Occurrences starting 10/27/2022 until 11/26/2023 [facility] Work Phone: Comment on above: 1 Occurrences starti ng 10/27/2022 until 11/26/2023 End: 01-15-2024 Radiologic exam abdomen 3+ views XR ABDOMEN 3V KUB W/OBLIQUES Radiology Routine Nephrolithiasis 1 Occurrences starting 12/16/2022 until 01/15/2024 [facility] Work Phone: Comment on above: 1 Occurrences starti ng 12/16/2022 until 01/15/2024 URINALYSIS, REFLEX MICROSCOPIC URINALYSIS, REFLEX MICROSCOPIC Lab Routine Screening for genitourinary condition Ordered: 12/16/2022 [facility] Work Phone: Comment on above: Ordered: 12/16/2022 End: 11-26-2023 US KIDNEY/BLADDER US KIDNEY/BLADDER Radiology Routine Nephrolithiasis Neurogenic bladder Encounter for care or replacement of suprapubic tube (HCC) 1 Occurrences starting 10/27/2022 until 11/26/2023 [facility] Work Phone: Comment on above: 1 Occurrences starti ng 10/27/2022 until 11/26/2023 End: 01-16-2024 US KIDNEY/BLADDER US KIDNEY/BLADDER Radiology Routine Nephrolithiasis 1 Occurrences starting 12/16/2022 until 01/16/2024 [facility] Work Phone: Comment on above: 1 Occurrences starti ng 12/16/2022 until 01/16/2024 End: 11-12-2023 XR ABDOMEN 1V SUPINE XR ABDOMEN 1V SUPINE Radiology Routine Nephrolithiasis 1 Occurrences starting 10/13/2022 until 11/12/2023 [facility] Work Phone: Comment on above: 1 Occurrences starti ng 10/13/2022 until 11/12/2023 [facility]6 [facility] Payers Date Payer Category Payer Private Health Insurance [id number] 2022 Self-pay [id number] 2021 Medicaid MEDICAID [facility] MEDICAID [id number] 2021-Present [phone] [address] [place] [address] Medicaid [id number] 2020 Medicare [id number] 2019 Unknown [id number] 2019 Unknown GENERIC AUTO INS URANCE GENERIC AUTO INSURANCE [id number] 2019-Present 2017 Unknown [id number] 2017 Unknown BCBS BCBS OUT OF STATE [id number] 2017-Present [address] [place] [address] [id number]. [id number] 1959 Medicaid [id number] 2.16.840.1.128781.19 1959 Medicare [id number] 2.16.840.1.076096.19 1955 Unknown [id number] 2.16.840.1.906401.3.579.2. 175 1955 Unknown [id number] 2.16.840.1.186851.3.579.2. 727 1955 Unknown [id number] 2.16.840.1.165299.3.579.2. 593 1955 Unknown [id number] 2.16.840.1.529750.3.579.2. 593 1955 Unknown [id number] 2.16.840.1.755213.3.579.2. 593 1955 Unknown [id number] 2.16.840.1.811689.3.579.2. 593 1955 Unknown [id number] 2.16.840.1.726825.3.579.2. 593 1955 Unknown [id number] 2.16.840.1.163415.3.579.2. 593 1955 Unknown [id number] 2.16.840.1.135866.3.579.2. 593 1955 Unknown [id number] 2.16.840.1.909705.3.579.2. 593 1955 Unknown [id number] 2.16.840.1.820824.3.579.2. 593 1955 Unknown [id number] 2.16.840.1.307554.3.579.2. 593 1955 Unknown [id number] 2.16.840.1.750744.3.579.2. 593 1955 Unknown [id number] 2.16.840.1.395079.3.579.2. 593 Unknown [id number] 2.16.840.1.868269.3.579.2. 531 Unknown [id number] 2.16.840.1.477916.3.579.2. 531 Unknown [id number] 2.16.840.1.201336.3.579.2. 531 Unknown [id number] 2.16.840.1.175382.3.579.2. 531 Unknown [id number] 2.16.840.1.749082.3.579.2. 531 Unknown [id number] 2.16.840.1.960668.3.579.2. 531 Unknown [id number] 2.16.840.1.528385.3.579.2. 531 Unknown [id number] 2.16.840.1.983691.3.579.2. 531 Social History Date Type Detail Facility Start: 09-25-2019 End: 10-13-2019 Tobacco smoking status NDIS Unknown if ever smoked [facility] Start: 09-25-2019 Alcohol intake Current drinke r of alcohol (finding) [facility] [place] Start: 09-23-2019 Alcohol Comment unable to asses [facility] [place] Start: 1955 Sex Assigned At Not on file M [place], [place] Exposure to SARS-CoV -2 (event) Unable to assess [place], [place] Start: 07-23-2022 End: 09-01-2022 Sex Assigned At [facility] Start: 07-15-2021 End: 02-04-2023 Tobacco smoking status NHIS Smoker (finding) [facility] Start: 1955 Sex Assigned At Male F [facility] Start: 07-23-2022 End: 08-06-2022 Alcohol intake Ex-drinker (finding) [facility] Start: 07-23-2022 History SDOH Financial 5 [facility] Start: 07-23-2022 History SDOH Food Worry 1 [facility] Start: 07-23-2022 History SDOH Transpo rt Med 2 [facility] Start: 07-23-2022 End: 09-01-2022 History of Social function [facility] How hard is it for y ou to pay for the very basics like food, housing, medical care, and heating Not hard at all [facility] (I/We) worried annamaria er (my/our) food would run out before (I/we) got money to buy more. Never true [facility] In the past 12 month s, was there a time when you were not able to pay the mortgage or rent on time? No [facility] Start: 03-14-2023 End: 2023 Tobacco smoking status NHIS Never smoked tobacco (finding) [facility] Medical Equipment Procedure Code Equipment Code Equipment Original Text Equipment Identifier Dates Screw Multi Axia l 3.5x14mm [id number] Start: 09-24-2019 Screw Lk Infinity Ti Set [id number] Start: 09-24-2019 Impl Librado Pre-Cut 3.5x30mm [id number] Start: 09-24-2019 Impl Spine Librado I nfinity 3.5x40mm [id number] Start: 09-24-2019 Stent Inlay Opti ma 7fr Taper [place] Polymer Phreecoat 26cm Ureteral - [id number] Start: 08-09-2022 Tray Powerline S urecuff 5fr Polyurethane Catheter 1 Lumen Microintroducer - [id number] Start: 09-24-2022 Stent Inlay Opti ma 7fr Taper [place] Phreecoat Polymer 28cm Ureteral - [id number] Start: 10-11-2022 Goals Date Patient Goal Desired Activity /State Functional Status Date Assessment Result Facility 03-22-2023 Functional status Patient at Baseline [facility] Work Phone: 02-06-2023 Functional status Patient at Baseline [facility] Work Phone: Mental Status Date Assessment Result Facility 03-22-2023 Cognitive function Cognitive Sta tus Patient at Baseline [facility] Work Phone: 02-06-2023 Cognitive function Cognitive Sta tus Patient at Baseline [facility] Work Phone: Clinical Notes 01-01-2022 to 03-22-2023 Note Date & Type Note Facility 03-22-2023 Hospital Discharg e instructions Ambulatory OrdersInitiate Home Health Time Frame: 03/22/23, Location: Determined By Patient Additional Instructions Speech therapy recommendations: *Thin liquids *Dental soft solids *Chopped meats *Extra bowl of gravy *Take pills whole, one at a time, with water *Sit upright at 90 degrees during all oral intake *Effortful swallow *Take small bites and sips *Alternate liquids and solids *Pace yourself and eat at a slow-rate *Sit upright for 30 minutes after meals and snacks Maintain and perform routine care to chronic hernandez catheter Dietitian recommendations: *Ensure plus, 1 container, three times daily with meals Home health to manage: -RN/PT/OT/ST to eval and treat -Monitor VS per protocol -Fall precautions -Perform genitourinary and GI assessments -Assist with medication management and education -Monitor intake and output -Change dressing every 3 days: *Coccyx ulcer- Clean with Theraworx protect foam. Pat dry and apply Mepilex border foam for protection. -Maintain and perform routine care to chronic hernandez catheter-- changed on 03/14/23 -Dietitian recommendations: *Ensure plus, 1 container, three times daily with meals -Speech therapy recommendations: *Thin liquids *Dental soft solids *Chopped meats *Extra bowl of gravy *Take pills whole, one at a time, with water *Sit upright at 90 degrees during all oral intake *Effortful swallow *Take small bites and sips *Alternate liquids and solids *Pace yourself and eat at a slow-rate *Sit upright for 30 minutes after meals and snacks [facility] Work Phone: 03-21-2023 Progress note Note Date/Time March 21, 2023 2:10pm [facility] [address] [place] [address] Hospitalist Progress Note Signed Patient: Fede Guerra MR#: [id number] : 1955 Acct:[id number] Age/Sex: 68 / M Adm Date: 3 Loc: 3T Room: [address] [place] [address] Type: ADM IN Attending Dr: Fede Darby DO Copies to: ~ Date of Service: 03/21/2023 Subjective Subjective Narrative: Seen and examined today. Denies any complaints Physical exam: General -awake, alert, oriented ?3, not in acute distress, appears to be quite comfortable Cardiovascular -S1 with S2, no murmurs, no rubs, no gallops Pulmonary - clear to auscultation bilaterally Gastrointestinal - abdomen is soft, nondistended but diffusely tender, with positive bowel sound Extremities - no significant edema Neurological -chronic quadriplegia with contracted upper extremities Exam Physical Exam Vital Signs: Temp Pulse Resp BP Pulse Ox O2 Del Method 36.9 C 91 H 18 147/85 H 100 Room Air 03/21/23 08:00 03/21/23 08:00 03/21/23 08:00 03/21/23 08:00 03/21/23 08:00 03/21/23 08:00 Objective Lab Results 03/19/23 04:20 03/20/23 04:25 Meds Allergies and Active Meds Allergies No Known Allergies Allergy (Verified 02/03/23 19:14) Active Meds: Active Medications Generic Name Dose Route Start Last Admin Trade Name Freq PRN Reason Stop Dose Admin Acetaminophen 500 mg 03/16/23 00:21 03/17/23 02:24 Acetaminophen 500 Mg Tablet PO 03/15/24 00:20 500 mg Q6H PRN Administration Pain Scale 1 - 3 or fever Amlodipine Besylate 5 mg 03/19/23 13:05 03/21/23 08:39 Amlodipine 5 Mg Tablet PO 03/18/24 13:04 5 mg DAILY EVELYN Administration Baclofen 10 mg 03/18/23 22:00 03/21/23 08:39 Baclofen 10 Mg Tablet PO 03/17/24 21:59 10 mg TID EVELYN Administration Bisacodyl 10 mg 03/16/23 14:26 Bisacodyl 10 Mg Supp.Rect AZ 03/15/24 14:25 DAILY PRN Constipation Calcium Carbonate 1,000 mg 03/17/23 12:57 03/17/23 13:58 Calcium Carbonate 500 Mg Tab.Chew PO 03/16/24 12:56 1,000 mg Q4H PRN Administration Dyspepsia Gabapentin 300 mg 03/19/23 14:00 03/21/23 08:39 Gabapentin 300 Mg Capsule PO 03/18/24 13:59 300 mg TID EVELYN Administration Heparin Sodium (Porcine) 5,000 unit 03/16/23 09:00 03/21/23 08:39 Heparin 5,000 Unit/Ml Vial SUBCUT 03/15/24 08:59 5,000 unit Q12HR EVELYN Administration Hydralazine HCl 10 mg 03/17/23 12:58 Hydralazine 20 Mg/Ml Vial IV-PUSH 03/16/24 12:57 Q4H PRN if SBP > 185 Tigecycline 50 mg in 100 mls @ 200 mls/hr 03/16/23 21:00 03/21/23 08:38 Tygacil IV 03/22/23 23:55 200 mls/hr Q12H EVELYN Administration Loratadine 10 mg 03/17/23 09:00 03/21/23 08:40 Loratadine 10 Mg Tablet PO 03/16/24 08:59 10 mg DAILY EVELYN Administration Multi-Ingredient Mouthwash/Gargle 5 ml 03/16/23 10:00 03/21/23 10:18 Magic Mouthwash With Lidocaine PO 03/15/24 09:59 5 ml Q4HR EVELYN Administration Ondansetron HCl 4 mg 03/16/23 00:21 03/21/23 10:30 Ondansetron Odt 4 Mg Tab.Rapdis PO 03/15/24 00:20 4 mg Q8HR PRN Administration Nausea And Vomiting Pantoprazole Sodium 40 mg 03/16/23 17:19 03/21/23 08:39 Pantoprazole 40 Mg Tablet.Dr PO 03/15/24 17:18 40 mg DAILY EVELYN Administration Polyethylene Glycol 17 gm 03/18/23 09:00 03/21/23 08:40 Polyethylene Glycol 3350 17 Gm Powd.Pack PO 03/17/24 08:59 Not Given DAILY EVELYN Sennosides 2 tab 03/17/23 21:00 03/21/23 08:40 Sennosides 8.6 Mg Tablet PO 03/16/24 20:59 Not Given BID EVELYN Sodium Chloride 0 ml 03/16/23 06:00 03/21/23 06:55 Sodium Chloride 0.9 % 10 Ml Syringe IV-PUSH 03/15/24 05:59 10 ml QSHIFT EVELYN Administration Tolterodine Tartrate 2 mg 03/16/23 16:30 03/21/23 06:54 Tolterodine 2 Mg Cap.Er.24h PO 03/15/24 16:29 2 mg BID.AC.BKFAST.SUPPER EVELYN Administration Tramadol HCl 25 mg 03/18/23 14:16 03/21/23 06:54 Tramadol 50 Mg Tablet PO 09/13/23 12:56 25 mg Q6H PRN Administration pain A&P - Hospitalist Assessment/Plan (1) Acute kidney injury: (2) Lactic acidosis: (3) Colitis: (4) Acute UTI: Plan 1. Severe sepsis suspected due to acute complicated cystitis due to chronic Hernandez catheter with underlying neurogenic bladder Urine cultures revealed Enterococcus faecalis and Klebsiella ESBL more than 100,000 colony-forming units, Acinetobacter less than 100,000 Appreciate ID input, continue with Tygacil discussed with ID, recommends total 7days of antibiotic therapy (correction from previous note) It seems to be improving, blood pressure improved, leukocytosis improving 2. Nonoliguric acute kidney injury, suspected prerenal due to dehydration/hypotension/severe sepsis Kidney function improving, good urine output noted 3. Chronic quadriplegia with upper extremity contractures secondary to trauma in 2019, patient lives at home with caregivers and the help from the family Restarted baclofen, dose adjusted for kidney function, restarted gabapentin 4. Constipation, medications adjusted Dulcolax per rectum, add lactulose Enemas Abdominal x-ray no acute 5. DVT prophylaxis heparin Plan to discharge in a.m. Documented By: Zeinab Poole MD 03/21/23 1409 Signed By: <Electronically signed by Zeinab Poole MD> 03/21/23 1410 [facility] Work Phone: 1(986) 801-979512-24-2023 Progress note Author Fede Darby [facility] March 20, 2023 8:45pm Note Date/Time March 20, 2023 8:45pm [facility] [address] [place] [address] Hospitalist Progress Note Signed Patient: eFde Guerra MR#: [id number] : 1955 Acct:[id number] Age/Sex: 68 / M Adm Date: 3 Loc: Room: [address] [place] [address] Type: ADM IN Attending Dr: Fede Darby DO Copies to: ~ Date of Service: 03/20/2023 Subjective Subjective Narrative: Seen and examined today. Moved to [facility] floor. No new complaints Physical exam: General -awake, alert, oriented ?3, not in acute distress, appears to be quite comfortable Cardiovascular -S1 with S2, no murmurs, no rubs, no gallops Pulmonary - clear to auscultation bilaterally Gastrointestinal - abdomen is soft, nondistended but diffusely tender, with positive bowel sound Extremities -1+ edema bilateral, edema seems to be improved Neurological -chronic quadriplegia with contracted upper extremities Exam Physical Exam Vital Signs: Temp Pulse Resp BP Pulse Ox O2 Del Method 97.5 F L 55 L 18 157/93 H 100 Room Air 03/20/23 16:00 03/20/23 16:00 03/20/23 16:00 03/20/23 16:00 03/20/23 16:00 03/20/23 16:00 Objective Lab Results 03/19/23 04:20 03/20/23 04:25 Meds Allergies and Active Meds Allergies No Known Allergies Allergy (Verified 02/03/23 19:14) Active Meds: Active Medications Generic Name Dose Route Start Last Admin Trade Name Nell PRN Reason Stop Dose Admin Acetaminophen 500 mg 03/16/23 00:21 03/17/23 02:24 Acetaminophen 500 Mg Tablet PO 03/15/24 00:20 500 mg Q6H PRN Administration Pain Scale 1 - 3 or fever Amlodipine Besylate 5 mg 03/19/23 13:05 03/20/23 08:57 Amlodipine 5 Mg Tablet PO 03/18/24 13:04 5 mg DAILY EVELYN Administration Baclofen 10 mg 03/18/23 22:00 03/20/23 13:41 Baclofen 10 Mg Tablet PO 03/17/24 21:59 10 mg TID EVELYN Administration Bisacodyl 10 mg 03/16/23 14:26 Bisacodyl 10 Mg Supp.Rect AZ 03/15/24 14:25 DAILY PRN Constipation Calcium Carbonate 1,000 mg 03/17/23 12:57 03/17/23 13:58 Calcium Carbonate 500 Mg Tab.Chew PO 03/16/24 12:56 1,000 mg Q4H PRN Administration Dyspepsia Gabapentin 300 mg 03/19/23 14:00 03/20/23 13:41 Gabapentin 300 Mg Capsule PO 03/18/24 13:59 300 mg TID EVELYN Administration Heparin Sodium (Porcine) 5,000 unit 03/16/23 09:00 03/20/23 08:59 Heparin 5,000 Unit/Ml Vial SUBCUT 03/15/24 08:59 5,000 unit Q12HR EVELYN Administration Hydralazine HCl 10 mg 03/17/23 12:58 Hydralazine 20 Mg/Ml Vial IV-PUSH 03/16/24 12:57 Q4H PRN if SBP > 185 Tigecycline 50 mg in 100 mls @ 200 mls/hr 03/16/23 21:00 03/20/23 09:04 Tygacil IV 03/22/23 23:55 200 mls/hr Q12H EVELYN Administration Loratadine 10 mg 03/17/23 09:00 03/20/23 08:57 Loratadine 10 Mg Tablet PO 03/16/24 08:59 10 mg DAILY EVELYN Administration Multi-Ingredient Mouthwash/Gargle 5 ml 03/16/23 10:00 03/20/23 13:42 Magic Mouthwash With Lidocaine PO 03/15/24 09:59 5 ml Q4HR EVELYN Administration Ondansetron HCl 4 mg 03/16/23 00:21 03/17/23 14:03 Ondansetron Odt 4 Mg Tab.Rapdis PO 03/15/24 00:20 4 mg Q8HR PRN Administration Nausea And Vomiting Pantoprazole Sodium 40 mg 03/16/23 17:19 03/20/23 08:57 Pantoprazole 40 Mg Tablet.Dr PO 03/15/24 17:18 40 mg DAILY EVELYN Administration Polyethylene Glycol 17 gm 03/18/23 09:00 03/20/23 08:56 Polyethylene Glycol 3350 17 Gm Powd.Pack PO 03/17/24 08:59 17 gm DAILY EVELYN Administration Sennosides 2 tab 03/17/23 21:00 03/20/23 08:57 Sennosides 8.6 Mg Tablet PO 03/16/24 20:59 2 tab BID EVELYN Administration Sodium Chloride 0 ml 03/16/23 06:00 03/20/23 13:42 Sodium Chloride 0.9 % 10 Ml Syringe IV-PUSH 03/15/24 05:59 10 ml QSHIFT EVELYN Administration Tolterodine Tartrate 2 mg 03/16/23 16:30 03/20/23 09:49 Tolterodine 2 Mg Cap.Er.24h PO 03/15/24 16:29 2 mg BID.AC.BKFAST.SUPPER EVELYN Administration Tramadol HCl 25 mg 03/18/23 14:16 03/18/23 21:32 Tramadol 50 Mg Tablet PO 09/13/23 12:56 25 mg Q6H PRN Administration pain A&P - Hospitalist Assessment/Plan (1) Acute kidney injury: (2) Lactic acidosis: (3) Colitis: (4) Acute UTI: Plan 1. Severe sepsis suspected due to acute complicated cystitis due to chronic Hernandez catheter with underlying neurogenic bladder Urine cultures revealed Enterococcus faecalis and Klebsiella ESBL more than 100,000 colony-forming units, Acinetobacter less than 100,000 Appreciate ID input, continue with Tygacil discussed with ID, recommends total 7days of antibiotic therapy (correction from previous note) It seems to be improving, blood pressure improved, leukocytosis improving 2. Nonoliguric acute kidney injury, suspected prerenal due to dehydration/hypotension/severe sepsis Kidney function improving, good urine output noted 3. Chronic quadriplegia with upper extremity contractures secondary to trauma in 2019, patient lives at home with caregivers and the help from the family Restarted baclofen, dose adjusted for kidney function, restarted gabapentin 4. Constipation, medications adjusted Dulcolax per rectum, add lactulose Enemas Complains of abdominal pain today, will check x-ray 5. DVT prophylaxis heparin Documented By: Fede Darby DO 03/20/23 44 Signed By: <Electronically signed by Fede Darby DO> 03/20/232044 [facility] Work Phone: [phone] 342-298212-24-2023 Progress note Author Fede Shah [facility] March 20, 2023 10:46am Note Date/Time March 20, 2023 10:46am [facility] [address] [place] [address] Infect. Disease Progress Note Signed Patient: LatelyFede MR#: [id number] : 1955 Acct:[id number] Age/Sex: 68 / M Adm Date: 3 Loc: Room: [address] [place] [address] Type: ADM IN Attending Dr: Fede Darby DO Copies to: ~ Date of Service: 03/20/2023 Subjective Interval history: Patient without new complaints today states today he is doing a little better. Exam Physical Exam Vital Signs: Temp Pulse Resp BP Pulse Ox O2 Del Method 98.3 F 88 15 133/71 99 Room Air 03/20/23 04:00 03/20/23 04:00 03/20/23 04:00 03/20/23 04:00 03/20/23 04:00 03/20/23 04:00 Const General: comfortable and no acute distress Orientation: oriented x3 HEENT Head: normal to inspection Mouth: abnormal oral mucosae, moist mucous membranes and other (mild thrush on tonuge; upper lip apthous ulcer; poor dentition) Eyes General: appearance normal, both eyes and all related structures Neck Neck: normal visual inspection Chest Chest palpation & inspection: normal inspection of the chest Resp Effort & Inspection: normal respiratory effort Cardio Palpation: normal PMI Rate: regular rate Rhythm: regular rhythm GI Inspection: normal to inspection Palpation: soft and tender (Slightly less) in the LLQ Auscultation: normal bowel sounds External: other (hernandez in place) Skin General: other (Per wound care small opening over scar without signs of infection on sacrum) Neuro General: patient oriented x3 Extrem General: pedal edema Objective Labs CBC/BMP: CBC, BMP 03/20/23 04:25 Sodium 138 Potassium 3.9 Chloride 109 H Carbon Dioxide 25.6 Anion Gap 7.3 BUN 29 H Creatinine 1.28 Calcium 8.2 L Labs: 03/20/23 04:25 BUN 29 H Creatinine 1.28 Allergies and Medications Allergies and Active Meds Allergies No Known Allergies Allergy (Verified 02/03/23 19:14) Active Medications Acetaminophen (Acetaminophen 500 Mg Tablet) 500 mg PO Q6H PRN PRN Reason: Pain Scale 1 - 3 or fever Stop: 03/15/24 00:20 Last Admin: 03/17/23 02:24 Dose: 500 mg Amlodipine Besylate (Amlodipine 5 Mg Tablet) 5 mg PO DAILY EVELYN Stop: 03/18/24 13:04 Last Admin: 03/20/23 08:57 Dose: 5 mg Baclofen (Baclofen 10 Mg Tablet) 10 mg PO TID EVELYN Stop: 03/17/24 21:59 Last Admin: 03/20/23 08:58 Dose: 10 mg Bisacodyl (Bisacodyl 10 Mg Supp.Rect) 10 mg AZ DAILY PRN PRN Reason: Constipation Stop: 03/15/24 14:25 Calcium Carbonate (Calcium Carbonate 500 Mg Tab.Chew) 1,000 mg PO Q4H PRN PRN Reason: Dyspepsia Stop: 03/16/24 12:56 Last Admin: 03/17/23 13:58 Dose: 1,000 mg Gabapentin (Gabapentin 300 Mg Capsule) 300 mg PO TID EVELYN Stop: 03/18/24 13:59 Last Admin: 03/20/23 08:56 Dose: 300 mg Heparin Sodium (Porcine) (Heparin 5,000 Unit/Ml Vial) 5,000 unit SUBCUT Q12HR EVELYN Stop: 03/15/24 08:59 Last Admin: 03/20/23 08:59 Dose: 5,000 unit Hydralazine HCl (Hydralazine 20 Mg/Ml Vial) 10 mg IV-PUSH Q4H PRN PRN Reason: if SBP > 185 Stop: 03/16/24 12:57 Tigecycline (Tygacil) 50 mg in 100 mls @ 200 mls/hr IV Q12H [facility] Last Admin: 03/20/23 09:04 Dose: 200 mls/hr Loratadine (Loratadine 10 Mg Tablet) 10 mg PO DAILY [facility] Stop: 03/16/24 08:59 Last Admin: 03/20/23 08:57 Dose: 10 mg Multi-Ingredient Mouthwash/Gargle (Magic Mouthwash With Lidocaine) 5 ml PO [id number] Stop: 03/15/24 09:59 Last Admin: 03/20/23 10:17 Dose: Not Given Ondansetron HCl (Ondansetron Odt 4 Mg Tab.Rapdis) 4 mg PO Q8HR PRN PRN Reason: Nausea And Vomiting Stop: 03/15/24 00:20 Last Admin: 03/17/23 14:03 Dose: 4 mg Pantoprazole Sodium (Pantoprazole 40 Mg Tablet.Dr) 40 mg PO DAILY [facility] Stop: 03/15/24 17:18 Last Admin: 03/20/23 08:57 Dose: 40 mg Polyethylene Glycol (Polyethylene Glycol 3350 17 Gm Powd.Pack) 17 gm PO DAILY [facility] Stop: 03/17/24 08:59 Last Admin: 03/20/23 08:56 Dose: 17 gm Sennosides (Sennosides 8.6 Mg Tablet) 2 tab PO BID EVELYN Stop: 03/16/24 20:59 Last Admin: 03/20/23 08:57 Dose: 2 tab Sodium Chloride (Sodium Chloride 0.9 % 10 Ml Syringe) 0 ml IV-PUSH QSHIFT EVELYN Stop: 03/15/24 05:59 Last Admin: 03/20/23 06:08 Dose: 20 ml Tolterodine Tartrate (Tolterodine 2 Mg Cap.Er.24h) 2 mg PO BID.AC.BKFAST.SUPPERSCH Stop: 03/15/24 16:29 Last Admin: 03/20/23 09:49 Dose: 2 mg Tramadol HCl (Tramadol 50 Mg Tablet) 25 mg PO Q6H PRN PRN Reason: pain Stop: 09/13/23 12:56 Last Admin: 03/18/23 21:32 Dose: 25 mg A&P - Infectious Disease Assessment/Plan (1) Catheter-associated urinary tract infection: (2) Leukocytosis: (3) Abdominal pain: (4) Spinal cord injury: Plan Today is day 5 of Tygacil. Complete 7 days then stop. CBC not done today. White count yesterday was normal. Patient remains afebrile Documented By: Fede Shah MD 03/20/231042 Signed By: <Electronically signed by MD Fede Shah> 03/20/236 [facility] Work Phone: [phone]) 648-435912-23-2023 Progress note Author Zeinab Poole [facility] March 19, 2023 1:12pm Note Date/Time March 19, 2023 1:08pm [facility] [address] [place] [address] Hospitalist Progress Note Signed Patient: HarithalyFede MR#: [id number] : 1955 Acct:[id number] Age/Sex: 68 / M Adm Date: 3 Loc: Room: [address] [place] [address] Type: ADM IN Attending Dr: Zeinab Poole MD Copies to: ~ Date of Service: 03/19/2023 Subjective Subjective Narrative: Patient has been seen and examined today. He is not feeling well. He complains of some nausea, but able to tolerate breakfast and lunch, he complains of abdominal pain, per nursing report he did have large bowel movements yesterday, he feels that he needs to go to the bathroom now otherwise he denies any chest pain any indigestion Physical exam: General -awake, alert, oriented ?3, not in acute distress, appears to be quite comfortable Cardiovascular -S1 with S2, no murmurs, no rubs, no gallops Pulmonary - clear to auscultation bilaterally Gastrointestinal - abdomen is soft, nondistended but diffusely tender, with positive bowel sound Extremities -1+ edema bilateral, edema seems to be improved Neurological -chronic quadriplegia with contracted upper extremities Exam Physical Exam Vital Signs: Temp Pulse Resp BP Pulse Ox O2 Del Method 37.0 C 81 12 166/87 H 99 Room Air 03/19/23 12:00 03/19/23 12:00 03/19/23 12:00 03/19/23 12:00 03/19/23 12:00 03/19/23 12:00 Objective Lab Results 03/19/23 04:20 03/19/23 04:20 Meds Allergies and Active Meds Allergies No Known Allergies Allergy (Verified 02/03/23 19:14) Active Meds: Active Medications Generic Name Dose Route Start Last Admin Trade Name Freq PRN Reason Stop Dose Admin Acetaminophen 500 mg 03/16/23 00:21 03/17/23 02:24 Acetaminophen 500 Mg Tablet PO 03/15/24 00:20 500 mg Q6H PRN Administration Pain Scale 1 - 3 or fever Baclofen 10 mg 03/18/23 22:00 03/19/23 08:19 Baclofen 10 Mg Tablet PO 03/17/24 21:59 10 mg TID EVELYN Administration Bisacodyl 10 mg 03/16/23 14:26 Bisacodyl 10 Mg Supp.Rect AZ 03/15/24 14:25 DAILY PRN Constipation Calcium Carbonate 1,000 mg 03/17/23 12:57 03/17/23 13:58 Calcium Carbonate 500 Mg Tab.Chew PO 03/16/24 12:56 1,000 mg Q4H PRN Administration Dyspepsia Heparin Sodium (Porcine) 5,000 unit 03/16/23 09:00 03/19/23 08:19 Heparin 5,000 Unit/Ml Vial SUBCUT 03/15/24 08:59 5,000 unit Q12HR EVELYN Administration Hydralazine HCl 10 mg 12/21/23 12:58 Hydralazine 20 Mg/Ml Vial IV-PUSH 03/16/24 12:57 Q4H PRN if SBP > 185 Tigecycline 50 mg in 100 mls @ 200 mls/hr 03/16/23 21:00 03/19/23 08:20 Tygacil IV 200 mls/hr Q12H EVELYN Administration Loratadine 10 mg 03/17/23 09:00 03/19/23 08:19 Loratadine 10 Mg Tablet PO 03/16/24 08:59 10 mg DAILY EVELYN Administration Multi-Ingredient Mouthwash/Gargle 5 ml 03/16/23 10:00 03/19/23 09:17 Magic Mouthwash With Lidocaine PO 03/15/24 09:59 Not Given Q4HR EVELYN Ondansetron HCl 4 mg 03/16/23 00:21 03/17/23 14:03 Ondansetron Odt 4 Mg Tab.Rapdis PO 03/15/24 00:20 4 mg Q8HR PRN Administration Nausea And Vomiting Pantoprazole Sodium 40 mg 03/16/23 17:19 03/19/23 08:19 Pantoprazole 40 Mg Tablet.Dr PO 03/15/24 17:18 40 mg DAILY EVELYN Administration Polyethylene Glycol 17 gm 03/18/23 09:00 03/19/23 08:20 Polyethylene Glycol 3350 17 Gm Powd.Pack PO 03/17/24 08:59 Not Given DAILY EVELYN Sennosides 2 tab 03/17/23 21:00 03/19/23 08:20 Sennosides 8.6 Mg Tablet PO 03/16/24 20:59 Not Given BID EVELYN Sodium Chloride 0 ml 03/16/23 06:00 03/19/23 05:49 Sodium Chloride 0.9 % 10 Ml Syringe IV-PUSH 03/15/24 05:59 10 ml QSHIFT EVELYN Administration Tolterodine Tartrate 2 mg 03/16/23 16:30 03/19/23 08:15 Tolterodine 2 Mg Cap.Er.24h PO 03/15/24 16:29 2 mg BID.AC.BKFAST.SUPPER EVELYN Administration Tramadol HCl 25 mg 03/18/23 14:16 03/18/23 21:32 Tramadol 50 Mg Tablet PO 09/13/23 12:56 25 mg Q6H PRN Administration pain A&P - Hospitalist Assessment/Plan (1) Acute kidney injury: (2) Lactic acidosis: (3) Colitis: (4) Acute UTI: Plan 1. Severe sepsis suspected due to acute complicated cystitis due to chronic Hernandez catheter with underlying neurogenic bladder Urine cultures revealed Enterococcus faecalis and Klebsiella ESBL more than 100,000 colony-forming units, Acinetobacter less than 100,000 Appreciate ID input, continue with Tygacil discussed with ID, recommends total 7days of antibiotic therapy (correction from previous note) It seems to be improving, blood pressure improved, leukocytosis improving 2. Nonoliguric acute kidney injury, suspected prerenal due to dehydration/hypotension/severe sepsis Kidney function improving, good urine output noted, self diuresis noted Continue to avoid nephrotoxic medications, home medications dose adjusted for kidney function 3. Chronic quadriplegia with upper extremity contractures secondary to trauma in 2019, patient lives at home with caregivers and the help from the family Restarted baclofen, dose adjusted for kidney function, restarted gabapentin 4. Constipation, medications adjusted Dulcolax per rectum, add lactulose Enemas Complains of abdominal pain today, will check x-ray 5. DVT prophylaxis heparin Documented By: Zeinab Poole MD 03/19/23 1306 Signed By: <Electronically signed by Zeinab Poole MD> 03/19/23 1312 [facility] Work Phone: [phone]) [phone] Progress note Author Fede Shah [facility] March 19, 2023 10:38am Note Date/Time March 19, 2023 10:12am [facility] [address] [place] [address] Infect. Disease Progress Note Signed Patient: HarithalyFede MR#: [id number] : 1955 Acct:[id number] Age/Sex: 68 / M Adm Date: 3 Loc: Room: [address] [place] [address] Type: ADM IN Attending Dr: Zeinab Poole MD Copies to: ~ Date of Service: 03/19/2023 Subjective Interval history: Patient had an enema yesterday as well as suppository and did apparently have a bowel movement but patient still complaining of some left-sided abdominal pain. Patient eating minimally and is also complaining of heartburn immediately after eating. His Hernandez however has been functioning well and urine looks normal. Heis being treated with Tygacil for a Hernandez related urinary tract infection/mechanical complication of Hernandez catheter due to blockgage Exam Physical Exam Vital Signs: Temp Pulse Resp BP Pulse Ox O2 Del Method 98.5 F 86 14 163/87 H 99 Room Air 03/19/23 08:00 03/19/23 09:00 03/19/23 09:00 03/19/23 09:00 03/19/23 09:00 03/19/23 09:00 Const General: comfortable and no acute distress Orientation: oriented x3 HEENT Head: normal to inspection Mouth: abnormal oral mucosae and moist mucous membranes Eyes General: appearance normal, both eyes and all related structures Neck Neck: normal visual inspection Chest Chest palpation & inspection: normal inspection of the chest Resp Effort & Inspection: normal respiratory effort Cardio Palpation: normal PMI Rate: regular rate Rhythm: regular rhythm GI Inspection: normal to inspection Palpation: soft and tender in the LLQ Auscultation: normal bowel sounds External: other (hernandez in place) Skin General: other (Per wound care small opening over scar without signs of infection on sacrum) Neuro General: patient oriented x3 Extrem General: pedal edema Objective Labs CBC/BMP: CBC, BMP 03/19/23 03/19/23 04:20 04:20 Corrected WBC 9.4 Uncorrected WBC Count 9.4 RBC 3.71 L Hgb 10.4 L Hct 31.0 L Plt Count 101 L Sodium 141 Potassium 4.0 Chloride 112 H Carbon Dioxide 23.6 Anion Gap 9.4 BUN 37 H Creatinine 1.48 H Calcium 8.3 L Labs: 03/19/23 04:20 BUN 37 H Creatinine 1.48 H Allergies and Medications Allergies and Active Meds Allergies No Known Allergies Allergy (Verified 02/03/23 19:14) Active Medications Acetaminophen (Acetaminophen 500 Mg Tablet) 500 mg PO Q6H PRN PRN Reason: Pain Scale 1 - 3 or fever Stop: 03/15/24 00:20 Last Admin: 03/17/23 02:24 Dose: 500 mg Baclofen (Baclofen 10 Mg Tablet) 10 mg PO TID EVELYN Stop: 03/17/24 21:59 Last Admin: 03/19/23 08:19 Dose: 10 mg Bisacodyl (Bisacodyl 10 Mg Supp.Rect) 10 mg AZ DAILY PRN PRN Reason: Constipation Stop: 03/15/24 14:25 Calcium Carbonate (Calcium Carbonate 500 Mg Tab.Chew) 1,000 mg PO Q4H PRN PRN Reason: Dyspepsia Stop: 03/16/24 12:56 Last Admin: 03/17/23 13:58 Dose: 1,000 mg Gabapentin (Gabapentin 100 Mg Capsule) 200 mg PO TID [facility] Stop: 03/17/24 21:59 Last Admin: 03/19/23 08:15 Dose: 200 mg Heparin Sodium (Porcine) (Heparin 5,000 Unit/Ml Vial) 5,000 unit SUBCUT Q12HR EVELYN Stop: 03/15/24 08:59 Last Admin: 03/19/23 08:19 Dose: 5,000 unit Hydralazine HCl (Hydralazine 20 Mg/Ml Vial) 10 mg IV-PUSH Q4H PRN PRN Reason: if SBP > 185 Stop: 03/16/24 12:57 Tigecycline (Tygacil) 50 mg in 100 mls @ 200 mls/hr IV Q12H [facility] Last Admin: 03/19/23 08:20 Dose: 200 mls/hr Loratadine (Loratadine 10 Mg Tablet) 10 mg PO DAILY [facility] Stop: 03/16/24 08:59 Last Admin: 03/19/23 08:19 Dose: 10 mg Multi-Ingredient Mouthwash/Gargle (Magic Mouthwash With Lidocaine) 5 ml PO [id number] Stop: 03/15/24 09:59 Last Admin: 03/19/23 09:17 Dose: Not Given Ondansetron HCl (Ondansetron Odt 4 Mg Tab.Rapdis) 4 mg PO Q8HR PRN PRN Reason: Nausea And Vomiting Stop: 03/15/24 00:20 Last Admin: 03/17/23 14:03 Dose: 4 mg Pantoprazole Sodium (Pantoprazole 40 Mg Tablet.Dr) 40 mg PO DAILY [facility] Stop: 03/15/24 17:18 Last Admin: 03/19/23 08:19 Dose: 40 mg Polyethylene Glycol (Polyethylene Glycol 3350 17 Gm Powd.Pack) 17 gm PO DAILY [facility] Stop: 03/17/24 08:59 Last Admin: 03/19/23 08:20 Dose: Not Given Sennosides (Sennosides 8.6 Mg Tablet) 2 tab PO BID EVELYN Stop: 03/16/24 20:59 Last Admin: 03/19/23 08:20 Dose: Not Given Sodium Chloride (Sodium Chloride 0.9 % 10 Ml Syringe) 0 ml IV-PUSH QSHIFT EVELYN Stop: 03/15/24 05:59 Last Admin: 03/19/23 05:49 Dose: 10 ml Tolterodine Tartrate (Tolterodine 2 Mg Cap.Er.24h) 2 mg PO BID.AC.BKFAST.SUPPERSCH Stop: 03/15/24 16:29 Last Admin: 03/19/23 08:15 Dose: 2 mg Tramadol HCl (Tramadol 50 Mg Tablet) 25 mg PO Q6H PRN PRN Reason: pain Stop: 09/13/23 12:56 Last Admin: 03/18/23 21:32 Dose: 25 mg A&P - Infectious Disease Assessment/Plan (1) Catheter-associated urinary tract infection: (2) Leukocytosis: (3) Abdominal pain: (4) Spinal cord injury: Plan White count has normalized today. I do not know if it is with a bowel movement yesterday of his elevated due to abdominal pain but despite he still having abdominal pain this morning with exam white count is now normal. Patient has been on Tygacil for 3 days for his catheter associated urinary tract infection. He has chronic Hernandez that did have issues with blockage apparently. It was changed already. He grew various bacteria including Enterococcus faecalis, ESBLKlebsiella pneumonia as well as a multidrug-resistant Acinetobacter. Favor finishing out 7 days of Tygacil therapy. Patient does not need prolonged courseof antibiotics. Documented By: Fede Shah MD 03/19/23 1007 Signed By: <Electronically signed by MD Fede Shah> 03/19/23 1038 [facility] Work Phone: [phone] 150-697212-22-2023 Progress note Author Zeinab Poole [facility] March 18, 2023 2:14pm Note Date/Time March 18, 2023 2:14pm [facility] [address] [place] [address] Hospitalist Progress Note Signed Patient: Lately,Fede Drew SR MR#: [id number] : 1955 Acct:[id number] Age/Sex: 68 / M Adm Date: 3 Loc: Room: [address] [place] [address] Type: ADM IN Attending Dr: Zeinab Poole MD Copies to: ~ Date of Service: 03/18/2023 Subjective Subjective Narrative: Patient has been seen and examined today. He appears to be more awake, acid reflux better, still complains of pain all over, minimal bowel movements, requesting enema Physical exam: General -awake, alert, oriented ?3, not in acute distress, appears to be quite comfortable Cardiovascular -S1 with S2, no murmurs, no rubs, no gallops Pulmonary - clear to auscultation bilaterally Gastrointestinal - abdomen is soft, nondistended, bowel sounds positive Extremities -1+ edema bilateral, edema seems to be improved Neurological -chronic quadriplegia with contracted upper extremities Exam Physical Exam Vital Signs: Temp Pulse Resp BP Pulse Ox O2 Del Method 36.8 C 95 H 13 159/88 H 95 Room Air 03/18/23 12:00 03/18/23 12:00 03/18/23 12:00 03/18/23 12:00 03/18/23 12:00 03/18/23 12:00 Objective Lab Results 03/18/23 05:00 03/18/23 05:00 Meds Allergies and Active Meds Allergies No Known Allergies Allergy (Verified 02/03/23 19:14) Active Meds: Active Medications Generic Name Dose Route Start Last Admin Trade Name Freq PRN Reason Stop Dose Admin Acetaminophen 500 mg 03/16/23 00:21 03/17/23 02:24 Acetaminophen 500 Mg Tablet PO 03/15/24 00:20 500 mg Q6H PRN Administration Pain Scale 1 - 3 or fever Baclofen 5 mg 03/16/23 22:00 03/18/23 13:48 Baclofen 10 Mg Tablet PO 03/15/24 21:59 5 mg TID EVELYN Administration Bisacodyl 10 mg 03/16/23 14:26 Bisacodyl 10 Mg Supp.Rect AZ 03/15/24 14:25 DAILY PRN Constipation Calcium Carbonate 1,000 mg 03/17/23 12:57 03/17/23 13:58 Calcium Carbonate 500 Mg Tab.Chew PO 03/16/24 12:56 1,000 mg Q4H PRN Administration Dyspepsia Gabapentin 100 mg 03/16/23 22:00 03/18/23 13:48 Gabapentin 100 Mg Capsule PO 03/15/24 21:59 100 mg TID EVELYN Administration Heparin Sodium (Porcine) 5,000 unit 03/16/23 09:00 03/18/23 10:11 Heparin 5,000 Unit/Ml Vial SUBCUT 03/15/24 08:59 5,000 unit Q12HR EVELYN Administration Hydralazine HCl 10 mg 03/17/23 12:58 Hydralazine 20 Mg/Ml Vial IV-PUSH 03/16/24 12:57 Q4H PRN if SBP > 185 Tigecycline 50 mg in 100 mls @ 200 mls/hr 03/16/23 21:00 03/18/23 10:31 Tygacil IV 200 mls/hr Q12H EVELYN Administration Loratadine 10 mg 03/17/23 09:00 03/18/23 10:10 Loratadine 10 Mg Tablet PO 03/16/24 08:59 10 mg DAILY EVELYN Administration Multi-Ingredient Mouthwash/Gargle 5 ml 03/16/23 10:00 03/18/23 10:10 Magic Mouthwash With Lidocaine PO 03/15/24 09:59 Not Given Q4HR EVELYN Ondansetron HCl 4 mg 03/16/23 00:21 03/17/23 14:03 Ondansetron Odt 4 Mg Tab.Rapdis PO 03/15/24 00:20 4 mg Q8HR PRN Administration Nausea And Vomiting Pantoprazole Sodium 40 mg 03/16/23 17:19 03/18/23 10:10 Pantoprazole 40 Mg Tablet.Dr PO 03/15/24 17:18 40 mg DAILY EVELYN Administration Polyethylene Glycol 17 gm 03/18/23 09:00 03/18/23 10:10 Polyethylene Glycol 3350 17 Gm Powd.Pack PO 03/17/24 08:59 17 gm DAILY EVELYN Administration Sennosides 2 tab 03/17/23 21:00 03/18/23 10:10 Sennosides 8.6 Mg Tablet PO 03/16/24 20:59 2 tab BID EVELYN Administration Sodium Chloride 0 ml 03/16/23 06:00 03/18/23 06:47 Sodium Chloride 0.9 % 10 Ml Syringe IV-PUSH 03/15/24 05:59 10 ml QSHIFT EVELYN Administration Tolterodine Tartrate 2 mg 03/16/23 16:30 03/18/23 06:47 Tolterodine 2 Mg Cap.Er.24h PO 03/15/24 16:29 2 mg BID.AC.BKFAST.SUPPER EVELYN Administration Tramadol HCl 25 mg 03/17/23 12:57 03/17/23 21:05 Tramadol 50 Mg Tablet PO 09/13/23 12:56 25 mg Q8H PRN Administration pain A&P - Hospitalist Assessment/Plan (1) Acute kidney injury: (2) Lactic acidosis: (3) Colitis: (4) Acute UTI: Plan 1. Severe sepsis suspected due to acute complicated cystitis due to chronic Hernandez catheter with underlying neurogenic bladder Urine cultures revealed Enterococcus faecalis and Klebsiella ESBL more than 100,000 colony-forming units, Acinetobacter less than 100,000 Appreciate ID input, continue with Tygacil discussed with ID, recommends total 42 days of antibiotic therapy It seems to be improving, blood pressure improved, leukocytosis improving 2. Nonoliguric acute kidney injury, suspected prerenal due to dehydration/hypotension/severe sepsis Kidney function improving, good urine output noted, some diuresis noted Continue to avoid nephrotoxic medications, home medications dose adjusted for kidney function 3. Chronic quadriplegia with upper extremity contractures secondary to trauma in 2020, patient lives at home with caregivers and the help from the family Restarted baclofen, dose adjusted for kidney function, restarted gabapentin 4. Constipation, medications adjusted Dulcolax per rectum, add lactulose Enemas 5. DVT prophylaxis heparin Documented By: Zeinab Poole MD 03/18/23 1410 Signed By: <Electronically signed by Zeinab Poole MD> 03/18/23 1412 [facility] Work Phone: 1(379) 596-910412-22-2023 Progress note Author Fede Shah [facility] March 18, 2023 12:22pm Note Date/Time March 18, 2023 12:22pm [facility] [address] [place] [address] Infect. Disease Progress Note Signed Patient: Lately,Fede Drew MR#: [id number] : 1955 Acct:[id number] Age/Sex: 68 / M Adm Date: 3 Loc: Room: [address] [place] [address] Type: ADM IN Attending Dr: Zeinab Poole MD Copies to: ~ Date of Service: 03/18/2023 Subjective Interval history: Patient still complaining of abdominal pain and feels like he is having indigestion. Despite bowel regime only had small loose bowel movement yesterday. Otherwise afebrile. Continues on Tygacil. Exam Physical Exam Vital Signs: Temp Pulse Resp BP Pulse Ox O2 Del Method 98.3 F 95 H 13 159/88 H 95 Room Air 03/18/23 12:00 03/18/23 12:00 03/18/23 12:00 03/18/23 12:00 03/18/23 12:00 03/18/23 12:00 Const General: comfortable and no acute distress Orientation: oriented x3 HEENT Head: normal to inspection Mouth: abnormal oral mucosae and moist mucous membranes Eyes General: appearance normal, both eyes and all related structures Neck Neck: normal visual inspection Chest Chest palpation & inspection: normal inspection of the chest Resp Effort & Inspection: normal respiratory effort Cardio Palpation: normal PMI Rate: regular rate Rhythm: regular rhythm GI Inspection: normal to inspection Palpation: soft and tender in the LLQ Auscultation: normal bowel sounds External: other (hernandez in place) Skin General: other (Per wound care small opening over scar without signs of infection on sacrum) Neuro General: patient oriented x3 Extrem General: pedal edema Objective Labs CBC/BMP: CBC, BMP 03/18/23 03/18/23 05:00 05:00 Corrected WBC 16.6 H Uncorrected WBC Count 16.6 H RBC 3.66 L Hgb 10.1 L Hct 30.9 L Plt Count 105 L Sodium 141 Potassium 4.2 Chloride 114 H Carbon Dioxide 22.7 Anion Gap 8.5 BUN 47 H Creatinine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 [place] [address] PCP - General Family Medicine 07/14/22 It Integration Architect Relationship Specialty Start Date End Date Ana Foley DO [address] [place] [address] PCP - General Family Medicine 07/14/22 It Integration Architect Relationship Specialty Start Date End Date Ana Foley DO [address] [place] [address] PCP - General Family Medicine 07/14/22 It Integration Architect Relationship Specialty Start Date End Date Ana Foley DO [address] [place] [address] PCP - General Family Medicine 07/14/22 It Integration Architect Relationship Specialty Start Date End Date Ana Foley DO [address] [place] [address] PCP - General Family Medicine 07/14/22 It Integration Architect Relationship Specialty Start Date End Date Marbella Foleya Veronica DO [address] [place] [address] PCP - General Family Medicine 07/14/22 It Integration Architect Relationship Specialty Start Date End Date Marbella Foleya Veronica DO [address] [place] [address] PCP - General Family Medicine 07/14/22 It Integration Architect Relationship Specialty Start Date End Date Marbella Foleyomar Martin DO [address] [place] [address] PCP - General Family Medicine 07/14/22 It Integration Architect Relationship Specialty Start Date End Date Ana Foley DO [address] [place] [address] PCP - General Family Medicine 07/14/22 It Integration Architect Relationship Specialty Start Date End Date Ana Foley DO [address] [place] [address] PCP - General Family Medicine 07/14/22 It Integration Architect Relationship Specialty Start Date End Date Ana Foley DO [address] [place] [address] PCP - General Family Medicine 07/14/22 It Integration Architect Relationship Specialty Start Date End Date Ana Foley DO [address] [place] [address] PCP - General Family Medicine 07/14/22 It Integration Architect Relationship Specialty Start Date End Date Ana Foley DO [address] [place] [address] PCP - General Family Medicine 07/14/22 It Integration Architect Relationship Specialty Start Date End Date Ana Foley DO [address] [place] [address] PCP - General Family Medicine 07/14/22 It Integration Architect Relationship Specialty Start Date End Date Ana Foley DO [address] [place] [address] PCP - General Family Medicine 07/14/22 It Integration Architect Relationship Specialty Start Date End Date Vicenta Ana VeronicaDO [address] [facility] [place] [address] PCP - General Family Medicine 07/14/22 It Integration Architect Relationship Specialty Start Date End Date Vicenta Ana VeronicaDO [address] [facility] [place] [place] [address] PCP - General Family Medicine 07/14/22 It Integration Architect Relationship Specialty Start Date End Date Vicenta Ana VeronicaDO [address] [facility] [address] PCP - General Family Medicine 07/14/22 It Integration Architect Relationship Specialty Start Date End Date Vicenta Ana Martin DO [address] [place] [address] PCP - General Family Medicine 07/14/22 Team Status: Active Member Role Status Dates Ana Foley , DO Primary Care Provider Active Team Status: Inactive Member Role Status Dates Jun Gaona , DO Emergency Provider Active Ana oFley , DO Primary Care Provider Active Team Status: Inactive Member Role Status Dates Annabella Marino APRN Attending Provider Active Ana Foley , DO Primary Care Provider Active It Integration Architect Relationship Specialty Start Date End Date FoleyAna DO [address] [place] [address] PCP - General Family Medicine 07/14/22 Team Status: Active Member Role Status Dates Ana Foley , DO Primary Care Provider Active Christin Manzanares , DO Emergency Provider Active Magdaleno Paige MD Admit Provider, Attending Provider Active Team Status: Active Member Role Status Dates Ana Foley , DO Primary Care Provider Active Annabella Marino APRN Attending Provider Active Team Status: Inactive Member Role Status Dates Ana Foley , DO Primary Care Provider Active Christin Manzanares , DO Emergency Provider Active Magdaleno Paige MD Admit Provider Active Ray Betancourt MD Attending Provider Active It Integration Architect Relationship Specialty Start Date End Date Ana Foley DO [address] [place] [place] [address] PCP - General Family Medicine 07/14/22 It Integration Architect Relationship Specialty Start Date End Date Ana Foley DO [address] [place] [address] PCP - General Family Medicine 07/14/22 Team Status: Inactive Member Role Status Dates Ana Foley , DO Primary Care Provider Active William Carver , DO Emergency Provider Active Team Status: Inactive Member Role Status Dates Ana Foley , DO Primary Care Provider Active River Alberto PA-C Emergency Provider Active Team Status: Inactive Member Role Status Dates Ana Foley , DO Primary Care Provider Active Jim Arcos , DO Admit Provider, Other Provider Act berto Poole MD Attending Provider Active Team Status: Inactive Member Role Status Dates Ana Foley , DO Primary Care Provider Active Annabella Marino APRN Attending Provider Active Goals (unrecognized section and content) Goals may be documented in a n alternate section Source Comments (unrecognize d section and content) In the event this informatio n is protected by the Federal Confidentiality of Alcohol and Drug Abuse Patient Records regulations: The Federal rules restrict any use of the information to criminally investigate or prosecute any alcohol or drug abuse patient.[facility] the event this information is protected by the Federal Confidentiality of Alcohol and Drug Abuse Patient Records regulations: The Federal rules restrict any use of the information to criminally investigate or prosecute any alcohol or drug abuse patient.[facility] Hospital[facility] the event this information is protected by the Federal Confidentiality of Alcohol and Drug Abuse Patient Records regulations: The Federal rules restrict any use of the information to criminally investigate or prosecute any alcohol or drug abuse patient.[facility] the event this information is protected by the Federal Confidentiality of Alcohol and Drug Abuse Patient Records regulations: The Federal rules restrict any use of the information to criminally investigate or prosecute any alcohol or drug abuse patient.[facility] HospitalIn the event this information is protected by the Federal Confidentiality of Alcohol and Drug Abuse Patient Records regulations: The Federal rules restrict any use of the information to criminally investigate or prosecute any alcohol or drug abuse patient.[facility] HospitalIn the event this information is protected by the Federal Confidentiality of Alcohol and Drug Abuse Patient Records regulations: The Federal rules restrict any use of the information to criminally investigate or prosecute any alcohol or drug abuse patient.[facility] HospitalIn the event this information is protected by the Federal Confidentiality of Alcohol and Drug Abuse Patient Records regulations: The Federal rules restrict any use of the information to criminally investigate or prosecute any alcohol or drug abuse patient.[facility] HospitalIn the event this information is protected by the Federal Confidentiality of Alcohol and Drug Abuse Patient Records regulations: The Federal rules restrict any use of the information to criminally investigate or prosecute any alcohol or drug abuse patient.[facility] HospitalIn the event this information is protected by the Federal Confidentiality of Alcohol and Drug Abuse Patient Records regulations: The Federal rules restrict any use of the information to criminally investigate or prosecute any alcohol or drug abuse patient.[facility] HospitalIn the event this information is protected by the Federal Confidentiality of Alcohol and Drug Abuse Patient Records regulations: The Federal rules restrict any use of the information to criminally investigate or prosecute any alcohol or drug abuse patient.[facility] HospitalIn the event this information is protected by the Federal Confidentiality of Alcohol and Drug Abuse Patient Records regulations: The Federal rules restrict any use of the information to criminally investigate or prosecute any alcohol or drug abuse patient.[facility] HospitalIn the event this information is protected by the Federal Confidentiality of Alcohol and Drug Abuse Patient Records regulations: The Federal rules restrict any use of the information to criminally investigate or prosecute any alcohol or drug abuse patient.[facility] HospitalIn the event this information is protected by the Federal Confidentiality of Alcohol and Drug Abuse Patient Records regulations: The Federal rules restrict any use of the information to criminally investigate or prosecute any alcohol or drug abuse patient.[facility] HospitalIn the event this information is protected by the Federal Confidentiality of Alcohol and Drug Abuse Patient Records regulations: The Federal rules restrict any use of the information to criminally investigate or prosecute any alcohol or drug abuse patient.[facility] HospitalIn the event this information is protected by the Federal Confidentiality of Alcohol and Drug Abuse Patient Records regulations: The Federal rules restrict any use of the information to criminally investigate or prosecute any alcohol or drug abuse patient.[facility] HospitalIn the event this information is protected by the Federal Confidentiality of Alcohol and Drug Abuse Patient Records regulations: The Federal rules restrict any use of the information to criminally investigate or prosecute any alcohol or drug abuse patient.[facility] HospitalIn the event this information is protected by the Federal Confidentiality of Alcohol and Drug Abuse Patient Records regulations: The Federal rules restrict any use of the information to criminally investigate or prosecute any alcohol or drug abuse patient.[facility] HospitalIn the event this information is protected by the Federal Confidentiality of Alcohol and Drug Abuse Patient Records regulations: The Federal rules restrict any use of the information to criminally investigate or prosecute any alcohol or drug abuse patient.[facility] HospitalIn the event this information is protected by the Federal Confidentiality of Alcohol and Drug Abuse Patient Records regulations: The Federal rules restrict any use of the information to criminally investigate or prosecute any alcohol or drug abuse patient.[facility] HospitalIn the event this information is protected by the Federal Confidentiality of Alcohol and Drug Abuse Patient Records regulations: The Federal rules restrict any use of the information to criminally investigate or prosecute any alcohol or drug abuse patient.[facility] HospitalIn the event this information is protected by the Federal Confidentiality of Alcohol and Drug Abuse Patient Records regulations: The Federal rules restrict any use of the information to criminally investigate or prosecute any alcohol or drug abuse patient.[facility] HospitalIn the event this information is protected by the Federal Confidentiality of Alcohol and Drug Abuse Patient Records regulations: The Federal rules restrict any use of the information to criminally investigate or prosecute any alcohol or drug abuse patient.[facility] HospitalIn the event this information is protected by the Federal Confidentiality of Alcohol and Drug Abuse Patient Records regulations: The Federal rules restrict any use of the information to criminally investigate or prosecute any alcohol or drug abuse patient.[facility] HospitalIn the event this information is protected by the Federal Confidentiality of Alcohol and Drug Abuse Patient Records regulations: The Federal rules restrict any use of the information to criminally investigate or prosecute any alcohol or drug abuse patient.[facility] HospitalIn the event this information is protected by the Federal Confidentiality of Alcohol and Drug Abuse Patient Records regulations: The Federal rules restrict any use of the information to criminally investigate or prosecute any alcohol or drug abuse patient.[facility] HospitalIn the event this information is protected by the Federal Confidentiality of Alcohol and Drug Abuse Patient Records regulations: The Federal rules restrict any use of the information to criminally investigate or prosecute any alcohol or drug abuse patient.[facility] HospitalIn the event this information is protected by the Federal Confidentiality of Alcohol and Drug Abuse Patient Records regulations: The Federal rules restrict any use of the information to criminally investigate or prosecute any alcohol or drug abuse patient.[facility] HospitalIn the event this information is protected by the Federal Confidentiality of Alcohol and Drug Abuse Patient Records regulations: The Federal rules restrict any use of the information to criminally investigate or prosecute any alcohol or drug abuse patient.[facility] Hospital[facility] the event this information is protected by the Federal Confidentiality of Alcohol and Drug Abuse Patient Records regulations: The Federal rules restrict any use of the information to criminally investigate or prosecute any alcohol or drug abuse patient.[facility] the event this information is protected by the Federal Confidentiality of Alcohol and Drug Abuse Patient Records regulations: The Federal rules restrict any use of the information to criminally investigate or prosecute any alcohol or drug abuse patient.[facility] the event this information is protected by the Federal Confidentiality of Alcohol and Drug Abuse Patient Records regulations: The Federal rules restrict any use of the information to criminally investigate or prosecute any alcohol or drug abuse patient.[facility] Hospital[facility] the event this information is protected by the Federal Confidentiality of Alcohol and Drug Abuse Patient Records regulations: The Federal rules restrict any use of the information to criminally investigate or prosecute any alcohol or drug abuse patient.[facility] FOR RECORDS PERTAINING TO PATIENTS WHO ARE OR HAVE BEEN ENROLLED IN A CHEMICAL DEPENDENCY/SUBSTANCEABUSE PROGRAM, SOME INFORMATION MAY BE OMITTED. This clinical summary was aggregated from multiple sources. Caution should be exercised in using it in the provision of clinical care. This summary normalizes information from multiple sources, and as a consequence, information in this document may materially change the coding, format and clinical context of patient data. In addition, data may be omitted in some cases. CLINICAL DECISIONS SHOULD BE BASED ON THE PRIMARY CLINICAL RECORDS. [facility] provides no warranty or guarantee of the accuracy or completeness of information in this document.
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
[2023-04-15] MEDS: TRAMADOL HCL 50 MG TABLET PO (03:27)
--- NOTE | 2023-04-15 03:41 | PC.NURSE ---
Call light answered and pt asked if we can stop him from coughing. Pt has been observed to have a intermitted weak cough and it was explained to pt that he will need to try to clear his throat or cough harder to bring up what ever is bothering him. Pt continues to yell please stop my cough . This nurse informs pt and that a chest xray, COVID and Flu swab were all completed and results all came back fine. Pt again yells please stop my cough . This nurse sits pt up higher in bed so he can get a better cough to clear his throat. Pt shows no s/s of altered mental status while in this ER. Pt is definitely agitated but will not communicate what he needs. This was explained to pt and . Pt just yells out help me over and over again. Pt also keeps accusing the nursing staff of laughing at him and at no time was any nursing staff laughing at him. He continues to yell at his , this nurse is unsure the knows what to do for pt as it sounds like these two are agitated with each other.
--- NOTE | 2023-04-15 04:29 | ED_ITS ---
HPI - General Adult General Chief complaint: Altered Mental Status Stated complaint: mental status Time Seen by Provider: 04/15/23 01:27 Source: patient Limitations: no limitations History of Present Illness HPI narrative: 68-year-old male presents from home for vague complaints. Paramedics brought him in and the patient repeatedly kept saying help me! Initially he would not explain to us what he needed help with. He was talking about coughing and needing to clear out some phlegm. Apparently he told the paramedics that his stomach was hurting. He does not have the ability to walk and is bedridden. He has had issues with constipation in the past. Related Data Home Medications Medication Instructions Recorded Confirmed baclofen 20 mg tablet 20 mg PO Q8H PRN pain 03/15/23 04/15/23 gabapentin 300 mg capsule 600 mg PO Q8H 03/15/23 04/15/23 loratadine 10 mg tablet 10 mg PO Q24H 03/15/23 04/15/23 trospium 20 mg tablet 20 mg PO Q12H 03/15/23 04/15/23 Allergies Allergy/AdvReac Type Severity Reaction Status Date / Time No Known Drug Allergies Allergy Verified 04/15/23 01:30 Review of Systems ROS Narrative not obtainable, uncooperative [facility] Medical History (Updated 04/15/23 @ 04:28 by Chino Haas MD) Chronic indwelling Hernandez catheter ?Z97.8 - Presence of other specified devices (ICD-10) Quadriplegic spinal paralysis ?G82.50 - Quadriplegia, unspecified (ICD-10) Social History Smoking status: Unknown if ever smoked Exam Narrative Exam Narrative: Nurses note and vital signs reviewed and patient is not hypoxic. General: The patient appears in no apparent distress. patient is frequently screaming out help me! Skin: Warm, dry, no pallor noted. There is no rash noted. Head: Normocephalic, atraumatic Eye: Normal conjunctiva, no drainage Ears, Nose, Mouth, and Throat: oral mucosa is moist. Nares patent. Cardiovascular: Regular Rate and Rhythm Respiratory: Patient is in no distress, no accessory muscle use, lungs are clear to auscultation, no wheezing, rales or rhonchi GI: Hernandez catheter in place. Nondistended. No apparent tenderness. Musculoskeletal: feet have wrappings to prevent pressure sores. Neurological: A&O x4, normal speech Psychiatric: uncooperative Constitutional Vital Signs, click to edit/add: Last Vital Signs Temp 97.5 F L 04/15/23 01:25 Pulse 72 04/15/23 04:00 Resp 15 04/15/23 04:00 BP 144/84 H 04/15/23 03:31 Pulse Ox 100 04/15/23 03:30 O2 Del Method Room Air 04/15/23 01:52 Course Vital Signs Vital signs: Vital Signs Temperature 97.5 F L 04/15/23 01:25 Pulse Rate 81 04/15/23 01:25 Respiratory Rate 16 04/15/23 01:25 Blood Pressure 144/91 H 04/15/23 01:25 Pulse Oximetry 100 04/15/23 01:25 Oxygen Delivery Method Room Air 04/15/23 01:25 Temperature 97.5 F L 04/15/23 01:25 Pulse Rate 72 04/15/23 04:00 Respiratory Rate 15 04/15/23 04:00 Blood Pressure 144/84 H 04/15/23 03:31 Pulse Oximetry 100 04/15/23 03:30 Oxygen Delivery Method Room Air 04/15/23 01:52 Medical Decision Making MDM Narrative Medical decision making narrative: laboratory analysis is negative. WBC is normal. He has presacral fat stranding, posterior to the rectum. My concern is for potential perforation and bacterial invasion of the rectal wall. His is requesting transfer to [facility] and he has been accepted there by Dr. Darby. The patient is stable and agreeable for transfer. Differential Diagnosis Differential Diagnosis: anxiety, bowel obstruction, constipation Medical Records Medical records reviewed: Yes I reviewed the patient's medical records Lab Data Lab results reviewed: Yes I reviewed the patient's lab results Labs: Lab Results 04/15/23 04/15/23 04/15/23 Range/Units 01:40 01:44 01:45 WBC 8.4 (4.0-11.0) 10^3/uL RBC 4.52 L (4.70-6.10) 10^6/uL Hgb 12.4 L (14.0-18.0) g/dL Hct 40.0 L (42.0-54.0) % MCV 88.5 (80.0-94.0) fL MCH 27.4 (25.9-34.0) pg MCHC 31.0 (29.9-35.2) g/dL RDW 14.1 (11.0-15.0) % Plt Count 426 (150-450) 10^3/uL MPV 9.5 (9.5-13.5) fL Neut % (Auto) 67.1 (43.0-75.0) % Lymph % (Auto) 19.4 L (20.5-60.0) % Nobles % (Auto) 7.9 (1.7-12.0) % Eos % (Auto) 4.4 (0.9-7.0) % Baso % (Auto) 0.7 (0.2-2.0) % Neut # (Auto) 5.6 (1.4-6.5) 10^3/uL Lymph # (Auto) 1.6 (1.2-3.8) 10^3/uL Nobles # (Auto) 0.7 (0.3-0.8) 10^3/uL Eos # (Auto) 0.4 (0.0-0.7) 10^3/uL Baso # (Auto) 0.1 (0.0-0.1) 10^3/uL Abs Immat Gran (auto) 0.04 H (0.00-0.03) 10^3/uL Imm/Tot Granulo (auto) 0.5 (0.0-0.5) % Sodium 146 H (136-145) mmol/L Potassium 3.9 (3.5-5.1) mmol/L Chloride 109 H (98-107) mmol/L Carbon Dioxide 27.4 (21.0-32.0) mmol/L Anion Gap 13.5 BUN 8.0 (7.0-18.0) mg/dL Creatinine 0.97 (0.70-1.30) mg/dL Est GFR ( Amer) >60 (>=60) Est GFR (Non-Af Amer) >60 (>=60) BUN/Creatinine Ratio 8.2 Glucose 123 H (74-106) mg/dL Calcium 9.9 (8.5-10.1) mg/dL Troponin I High Sens 5.2 (4.0-76.1) pg/mL Urine Color Lt. yellow (YELLOW) Urine Clarity Clear (CLEAR) Urine pH 6.5 (5.0-9.0) Ur Specific [place] 1.010 (1.005-1.025) Urine Protein Negative (NEG/TRACE) mg/dL Urine Glucose (UA) Negative (NEGATIVE) mg/dL Urine Ketones Negative (NEGATIVE) mg/dL Urine Occult Blood Trace-i (NEGATIVE) Urine Nitrite Negative (NEGATIVE) Urine Bilirubin Negative (NEGATIVE) Urine Urobilinogen 0.2 (0.2-1.0) EU/dL Ur Leukocyte Esterase Large A (NEGATIVE) Urine RBC 0-2 (0-2) #/HPF Urine WBC 10-20 A (NONE SEEN) #/HPF Ur Squamous Epith Cells Few A (NONE/RARE) #/LPF Urine Crystals Seen A (None Seen) #/HPF Amorphous Sediment Many Urine Bacteria Large A (NONE SEEN) #/HPF Urine Casts None seen (NONE SEEN) #/LPF Urine Mucus None seen (NONE SEEN) Influenza Type A Ag Negative Influenza Type B Ag Negative SARS-CoV-2 Ag (CV2AG) Negative (NEGATIVE) Imaging Data CT scan - abdomen: Radiologist's impression: ITS Impressions Chest X-Ray 04/15/23 01:31 IMPRESSION: 1. No acute cardiopulmonary abnormality. Electronically authenticated by: Gaviota SALCIDO Date: 04/15/2023 02:17 Abdomen/Pelvis CT 04/15/23 02:50 IMPRESSION: 1. Dense stool distending the rectal vault with adjacent posterior perirectal fat stranding in the presacral fat. Fecal impaction with mild stercoral proctitis cannot be excluded. Moderate stool is seen in the remainder the colon. 2. Nonspecific diffuse urinary bladder wall thickening could reflect bladder decompression around an indwelling Hernandez catheter, chronic wall hypertrophy or cystitis. No other potential acute findings are seen in the abdomen or pelvis. 3. Cholelithiasis. 4. Prostatomegaly. Electronically authenticated by: RYLEE GIBSON Date: 04/15/2023 03:49 Discharge Plan Discharge Chief Complaint: Altered Mental Status Clinical Impression: Acute proctitis, Constipation Patient Disposition: [facility] Time of Disposition Decision: 04:28 Discharge Location: [facility] Condition: Good Mode of Transportation: Private Vehicle
--- NOTE | 2023-04-15 04:39 | PC.NURSE ---
pt repositioned for comfort with pillows, heels elevated with pillows. wive informs this nurse pt has home health at home and sees wound care at [facility] for wound care. pt agitated that will not reposition him herself and continues to yell at . and pt informed that [place] [facility] [place].
--- NOTE | 2023-04-15 04:56 | PC.NURSE ---
pt repositioned to right side with pillows. water given and will continue to monitor.
--- NOTE | 2023-04-15 06:13 | PC.NURSE ---
[place] H[place] [facility] [phone]
== END 2023-04-15 06:32 | disposition short-term general hospital (02) ==
PROVIDERS: Emergency Provider Emergency Medicine
DX: K62.89 Other specified diseases of anus and rectum (principal); K59.00 Constipation, unspecified; Z79.899 Other long term (current) drug therapy; G82.50 Quadriplegia, unspecified; Z97.8 Presence of other specified devices; Z74.01 Bed confinement status; Z20.822 Contact with and (suspected) exposure to COVID-19
CPT/HCPCS: 36415; 71045; 74176; 80048; 81001; 84484; 85025; 87804; 87811; 93005; 99285; J2405

== ENCOUNTER 2023-05-05 17:15 | Emergency (ER) | payer MEDICARE, MEDICAID, SELFPAY ==
[2023-05-05 17:17] VITALS: BP 154/81; PULSE 80; RESP 16; TEMP 36.8; O2SAT 99; BMI 23.1
--- NOTE | 2023-05-05 17:18 | ED.GENADUL1 ---
HPI - General Adult General Chief complaint: Recheck/Abnormal Lab/Rx Stated complaint: Medical Devise Time Seen by Provider: 05/05/23 17:17 History of Present Illness HPI narrative: Patient is a 68-year-old male who presents to the Emergency department for Hernandez catheter placement. Patient has a home health nurse that attempted to replace a Hernandez catheter that fell out, she was unable to get a urine return and sent the patient to the ER. Patient has no focal medical complaints at this time. He has a history of quadriplegia and has a chronic indwelling Hernandez catheter. Related Data Home Medications Medication Instructions Recorded Confirmed baclofen 20 mg tablet 20 mg PO Q8H PRN pain 03/15/23 04/15/23 gabapentin 300 mg capsule 600 mg PO Q8H 03/15/23 04/15/23 loratadine 10 mg tablet 10 mg PO Q24H 03/15/23 04/15/23 trospium 20 mg tablet 20 mg PO Q12H 03/15/23 04/15/23 Allergies Allergy/AdvReac Type Severity Reaction Status Date / Time No Known Drug Allergies Allergy Verified 05/05/23 17:17 Review of Systems ROS Constitutional Denies: fever or chills Ears, nose, mouth, and throat Denies: throat pain or nasal congestion Cardiovascular Denies: chest pain Respiratory Denies: shortness of breath Gastrointestinal Denies: abdominal pain, nausea or vomiting Genitourinary Reports: difficulty urinating Integumentary/Breast Denies: rash Neurological Denies: headache Endocrine Denies: excessive urination [facility] Medical History (Updated 05/05/23 @ 17:36 by KATARINA Wheeler) Chronic indwelling Hernandez catheter ?Z97.8 - Presence of other specified devices (ICD-10) Quadriplegic spinal paralysis ?G82.50 - Quadriplegia, unspecified (ICD-10) Social History Smoking status: Current every day smoker Exam Narrative Exam Narrative: Gen.: Awake, alert, in no distress; Smiling, talkative Head: Normocephalic, atraumatic ENT: Moist mucous membranes Respiratory: No respiratory distress Gastrointestinal: Abdomen is soft, nondistended and nontender to palpation Extremities: Contractures of the upper and lower extremities Psych: Normal mood and affect Neuro: Quadriplegia at baseline Skin: Warm, dry, intact Constitutional Vital Signs, click to edit/add: Last Vital Signs Temp 98.2 F 05/05/23 17:17 Pulse 80 05/05/23 17:17 Resp 16 05/05/23 17:17 BP 154/81 H 05/05/23 17:17 Pulse Ox 99 05/05/23 17:17 O2 Del Method Room Air 05/05/23 17:17 Course Vital Signs Vital signs: Vital Signs Temperature 98.2 F 05/05/23 17:17 Pulse Rate 80 05/05/23 17:17 Respiratory Rate 16 05/05/23 17:17 Blood Pressure 154/81 H 05/05/23 17:17 Pulse Oximetry 99 05/05/23 17:17 Oxygen Delivery Method Room Air 05/05/23 17:17 Temperature 98.2 F 05/05/23 17:17 Pulse Rate 80 05/05/23 17:17 Respiratory Rate 16 05/05/23 17:17 Blood Pressure 154/81 H 05/05/23 17:17 Pulse Oximetry 99 05/05/23 17:17 Oxygen Delivery Method Room Air 05/05/23 17:17 Medical Decision Making MDM Narrative Medical decision making narrative: Hernandez catheter replaced with no difficulty by nursing staff, He has stable vital signs and no other focal medical complaints in the ER. He is discharged home To follow-up with home health and PCP. Urine specimen sent for culture. Return to the ER if symptoms change or worsen. Medical Records Medical records reviewed: Yes I reviewed the patient's medical records Discharge Plan Discharge Chief Complaint: Recheck/Abnormal Lab/Rx Clinical Impression: Encounter for Hernandez catheter replacement Patient Disposition: Home, Self-Care Time of Disposition Decision: 17:36 Condition: Good Prescriptions / Home Meds: No Action baclofen 20 mg tablet 20 mg PO Q8H PRN (Reason: pain) loratadine 10 mg tablet 10 mg PO Q24H trospium 20 mg tablet 20 mg PO Q12H Rx Instructions: before meals gabapentin 300 mg capsule 600 mg PO Q8H Instructions: Hernandez Catheter Placement and Care (ED) Stand Alone Forms: Portal Instructions Referrals: Physician,Non-Staff, MD [Primary Care Provider] - 1 week Discharge Date/Time: 05/05/23 18:31
== END 2023-05-05 18:31 | disposition home or self-care (01) ==
PROVIDERS: Emergency Provider Emergency Medicine
DX: Z46.6 Encounter for fitting and adjustment of urinary device (principal); G82.50 Quadriplegia, unspecified; Z79.899 Other long term (current) drug therapy; F17.200 Nicotine dependence, unspecified, uncomplicated
CPT/HCPCS: 51702; 99284

== ENCOUNTER 2023-05-12 12:35 | Outpatient (REF) | payer MEDICARE, MEDICAID, SELFPAY ==
[2023-05-12 14:06] LABS: Bilirubin Urine NEGATIVE (NEGATIVE); Blood Urine SMALL (NEGATIVE); Clarity Urine CLEAR (CLEAR); Color Urine LT. YELLOW (YELLOW); Glucose Urine UA NEGATIVE (NEGATIVE); Ketones Urine NEGATIVE (NEGATIVE); Leukocyte Esterase Urine SMALL (NEGATIVE); Nitrite Urine POSITIVE (NEGATIVE); Protein Urine TRACE mg/dL (NEG/TRACE); Urobilinogen Urine 0.2 EU/dL (0.2-1.0)
[2023-05-12 14:19] LABS: Urine Microscopic Indicated YES
[2023-05-12 14:21] LABS: Bacteria Urine LARGE #/HPF (NONE SEEN); Mucus Urine NONE SEEN (NONE SEEN)
[2023-05-12 14:22] LABS: Cast Seen? NONE SEEN #/LPF (NONE SEEN); Crystals Seen? None Seen #/HPF (None Seen); Squamous Epithelial Cell Urine NONE SEEN #/LPF (NONE/RARE); Urine Culture Indicated YES
== END 2023-05-12 12:36 | disposition home or self-care (01) ==
LOC: LAB 12:35
DX: N39.0 Urinary tract infection, site not specified (principal)
CPT/HCPCS: 81001; 87086; 87150; 87186

== ENCOUNTER 2023-08-17 08:10 | Emergency (ER) | payer MEDICARE, MEDICAID, SELFPAY ==
[2023-08-17 08:12] VITALS: BP 168/98; PULSE 71; TEMP 36.8; O2SAT 99; BMI 23.7
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
--- NOTE | 2023-08-17 08:56 | PC.NURSE ---
Enema completed. Pt tolerated well. Pt able to push during enema and able to get two large BM's. Pt states that he feels better after procedure
[2023-08-17 10:57] VITALS: BP 137/89; PULSE 88; O2SAT 98
--- NOTE | 2023-08-17 12:38 | ECG_ITS ---
The [facility] Test Date: 2023-08-17 Pat Name: FEDE ARGUETA Department: Room: - Gender: Male Manager Personnel Selection: : 1955 Requested By: Order Number: [id number] Reading MD: CHRISTOPHER GONZALEZ Measurements Intervals Thor Rate: 80 P: 75 RI: 178 QRS: 45 QRSD: 76 T: 64 QT: 354 QTc: 391 Interpretive Statements 1100 Sinus rhythm 9110 normal ECG Compared to ECG 04/15/2023 01:29:11 Sinus bradycardia no longer present Electronically Signed On 08-17-2023 22:17:54 EDT by CHRISTOPHER GONZALEZ
== END 2023-08-17 10:58 | disposition home or self-care (01) ==
PROVIDERS: Emergency Provider Emergency Medicine
DX: K59.00 Constipation, unspecified (principal); G82.50 Quadriplegia, unspecified; Z97.8 Presence of other specified devices; F17.210 Nicotine dependence, cigarettes, uncomplicated; Z79.899 Other long term (current) drug therapy
CPT/HCPCS: 93005; 99283

== ENCOUNTER 2023-08-31 11:13 | Outpatient (REF) | payer MEDICARE, MEDICAID, SELFPAY ==
[2023-08-31 12:45] LABS: Bilirubin Urine NEGATIVE (NEGATIVE); Blood Urine TRACE-I (NEGATIVE); Clarity Urine CLEAR (CLEAR); Color Urine YELLOW (YELLOW); Glucose Urine UA NEGATIVE (NEGATIVE); Ketones Urine NEGATIVE (NEGATIVE); Leukocyte Esterase Urine MODERATE (NEGATIVE); Nitrite Urine POSITIVE (NEGATIVE); Protein Urine 30 mg/dL (NEG/TRACE); Specific Gravity Urine 1.025 (1.005-1.025)
[2023-08-31 12:49] LABS: Urine Microscopic Indicated YES
[2023-08-31 13:33] LABS: Bacteria Urine LARGE #/HPF (NONE SEEN); Cast Seen? NONE SEEN #/LPF (NONE SEEN); Crystals Seen? None Seen #/HPF (None Seen); Mucus Urine NONE SEEN (NONE SEEN); Squamous Epithelial Cell Urine RARE #/LPF (NONE/RARE); WBC Urine 50-75 #/HPF (NONE SEEN)
[2023-08-31 13:34] LABS: Urine Culture Indicated YES
== END 2023-08-31 11:14 | disposition home or self-care (01) ==
LOC: LAB 11:13
PROVIDERS: Visit Provider Family Medicine
DX: N31.9 Neuromuscular dysfunction of bladder, unspecified (principal); G82.50 Quadriplegia, unspecified; Z93.59 Other cystostomy status; R13.10 Dysphagia, unspecified
CPT/HCPCS: 81001; 87086; 87150; 87186

== ENCOUNTER 2023-09-06 02:13 | Inpatient (IN) | payer MEDICARE, MEDICAID, SELFPAY ==
[2023-09-06] VITALS (11 sets, daily range): BP systolic 106–195; BP diastolic 70–95; PULSE 74–87; TEMP 36.5–36.8; O2SAT 96–100; BMI 27.4
--- NOTE | 2023-09-06 02:23 | PC.NURSE ---
Pt reports generalized stiff ness that is worse than his normal, pt has contracted BUE. Pt reports PCP ordered xrays of sacrum, abd, and chest pt has not gone for xrays. Pt has chronic reyez.
--- NOTE | 2023-09-06 02:34 | ED.GENADUL1 ---
HPI HPI - General Adult General Chief complaint: Weakness Stated complaint: OTHER Time Seen by Provider: 09/06/23 02:16 Source: patient Mode of arrival: ambulance Limitations: physical limitation History of Present Illness HPI narrative: 68-year-old male presents to the emergency department apparently for a urinary tract infection. He is a poor historian but it seems that he had a urine test done last week as well as a culture and he received a phone call on September 04 that he should go to the emergency department because he needs IV antibiotic. It turns out that he had a urine culture performed which showed Klebsiella which is only sensitive to amikacin, ertapenem, and imipenem on the sensitivities. He does not have any complaints of fever or vomiting. He has chronic contractures. He does not complain to me of abdominal pain. He states he is not on any antibiotics now. Related Data Home Medications ?Medication ?Instructions ?Recorded ?Confirmed baclofen 20 mg tablet 20 mg PO Q8H PRN pain 03/15/23 04/15/23 gabapentin 300 mg capsule 600 mg PO Q8H 03/15/23 04/15/23 loratadine 10 mg tablet 10 mg PO Q24H 03/15/23 04/15/23 trospium 20 mg tablet 20 mg PO Q12H 03/15/23 04/15/23 Allergies Allergy/AdvReac Type Severity Reaction Status Date / Time No Known Drug Allergies Allergy Verified 09/06/23 02:16 Opioid HPI Opioid Management Most Recent Opioid Data: No Data to Display Review of Systems ROS Narrative A ten point review of systems is negative except as noted above. [facility] Medical History (Updated 09/06/23 @ 03:34 by Chino Haas MD) Chronic indwelling Hernandez catheter ?Z97.8 - Presence of other specified devices (ICD-10) Quadriplegic spinal paralysis ?G82.50 - Quadriplegia, unspecified (ICD-10) Social History Smoking status: Current every day smoker Exam Narrative Exam Narrative: Nurses note and vital signs reviewed and patient is not hypoxic. General: The patient appears well and in no apparent distress. Patient is resting comfortably on cart. Skin: Warm, dry, no pallor noted. There is some skin breakdown on the presacral area. Head: Normocephalic, atraumatic Eye: Normal conjunctiva, no drainage Ears, Nose, Mouth, and Throat: oral mucosa is moist. Nares patent. Cardiovascular: Regular Rate and Rhythm Respiratory: Patient is in no distress, no accessory muscle use, lungs are clear to auscultation, no wheezing, rales or rhonchi Back: non-tender GI: Soft and nontender : Hernandez catheter has cloudy urine in it Musculoskeletal: Chronic contractures of his arms. He is not able to move his legs but he is able to manipulate his arms and use his cell phone. Neurological: Awake and alert Psychiatric: Cooperative Constitutional Vital Signs, click to edit/add: Last Vital Signs Temp 98.1 F 09/06/23 02:13 Pulse 87 09/06/23 02:59 Resp 16 09/06/23 02:59 BP 137/95 H 09/06/23 02:59 Pulse Ox 100 09/06/23 02:59 O2 Del Method Room Air 09/06/23 02:13 Course Vital Signs Vital signs: Vital Signs Temperature 98.1 F 09/06/23 02:13 Pulse Rate 87 09/06/23 02:13 Respiratory Rate 18 09/06/23 02:13 Blood Pressure 195/95 H 09/06/23 02:13 Pulse Oximetry 98 09/06/23 02:13 Oxygen Delivery Method Room Air 09/06/23 02:13 Temperature 98.1 F 09/06/23 02:13 Pulse Rate 87 09/06/23 02:59 Respiratory Rate 16 09/06/23 02:59 Blood Pressure 137/95 H 09/06/23 02:59 Pulse Oximetry 100 09/06/23 02:59 Oxygen Delivery Method Room Air 09/06/23 02:13 Medical Decision Making [facility] Narrative Medical decision making narrative: Blood work is nonspecific, WBC is 5.2. Lactic acid is normal. Renal function is normal. The patient has Klebsiella pneumonia on a urine culture which is only sensitive to IV antibiotics. He was ordered IV ertapenem and blood cultures were obtained as well. I have no clinical suspicion for sepsis at this point. Treatment diagnosis and disposition were discussed with the patient. He is requesting to be admitted to [facility]. Differential Diagnosis Differential Diagnosis: UTI, dehydration Lab Data Lab results reviewed: Yes I reviewed the patient's lab results Labs: Lab Results 09/06/23 09/06/23 Range/Units 02:19 02:48 WBC 5.2 (4.0-11.0) 10^3/uL RBC 4.70 (4.70-6.10) 10^6/uL Hgb 13.1 L (14.0-18.0) g/dL Hct 40.9 L (42.0-54.0) % MCV 87.0 (80.0-94.0) fL MCH 27.9 (25.9-34.0) pg MCHC 32.0 (29.9-35.2) g/dL RDW 13.7 (11.0-15.0) % Plt Count 260 (150-450) 10^3/uL MPV 10.0 (9.5-13.5) fL Neut % (Auto) 36.2 L (43.0-75.0) % Lymph % (Auto) 48.3 (20.5-60.0) % [place] % (Auto) 8.1 (1.7-12.0) % Eos % (Auto) 6.0 (0.9-7.0) % Baso % (Auto) 1.2 (0.2-2.0) % Neut # (Auto) 1.9 (1.4-6.5) 10^3/uL Lymph # (Auto) 2.5 (1.2-3.8) 10^3/uL [place] # (Auto) 0.4 (0.3-0.8) 10^3/uL Eos # (Auto) 0.3 (0.0-0.7) 10^3/uL Baso # (Auto) 0.1 (0.0-0.1) 10^3/uL Abs Immat Gran (auto) 0.01 (0.00-0.03) 10^3/uL Imm/Tot Granulo (auto) 0.2 (0.0-0.5) % Sodium 136 (136-145) mmol/L Potassium 4.0 (3.5-5.1) mmol/L Chloride 104 (98-107) mmol/L Carbon Dioxide 26.8 (21.0-32.0) mmol/L Anion Gap 9.2 BUN 15.0 (7.0-18.0) mg/dL Creatinine 0.90 (0.70-1.30) mg/dL Est GFR ( Amer) >60 (>=60) Est GFR (Non-Af Amer) >60 (>=60) BUN/Creatinine Ratio 16.7 Glucose 91 (74-106) mg/dL Lactate 1.3 (0.4-2.0) mmol/L Calcium 9.2 (8.5-10.1) mg/dL Urine Color Yellow (YELLOW) Urine Clarity Clear (CLEAR) Urine pH 6.5 (5.0-9.0) Ur Specific [place] 1.020 (1.005-1.025) Urine Protein 30 A (NEG/TRACE) mg/dL Urine Glucose (UA) Negative (NEGATIVE) mg/dL Urine Ketones Trace A (NEGATIVE) mg/dL Urine Occult Blood Moderate A (NEGATIVE) Urine Nitrite Negative (NEGATIVE) Urine Bilirubin Negative (NEGATIVE) Urine Urobilinogen 4.0 A (0.2-1.0) EU/dL Ur Leukocyte Esterase Large A (NEGATIVE) Urine RBC 0-2 (0-2) #/HPF Urine WBC 5-10 A (NONE SEEN) #/HPF Ur Squamous Epith Cells Rare (NONE/RARE) #/LPF Ur Transition Epith Cell Few A (NONE SEEN) #/LPF Urine Crystals Seen A (None Seen) #/HPF Calcium Oxalate Crystal Moderate Uric Acid Crystals Few Urine Bacteria Large A (NONE SEEN) #/HPF Urine Casts None seen (NONE SEEN) #/LPF Urine Mucus None seen (NONE SEEN) Ur Culture Indicated? 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
--- OUTSIDE RECORDS SUMMARY | 2023-09-06 02:44 | XMS_ITS | CCD ---
Author Organization [facility] Inform ion [facility] Care Team Providers Care Software Tools Engineer Name Role Phone ERIN LUDWIG Admitting Unavailable ERIN LUDWIG Attending Unavailable AMNA MCGARRY Consulting Unavailable YOMAIRA EDUARDO Consulting Unavailable Unavailable Primary Care Provider UnavailAna Rm Unavailable NON STAFF Primary Care Provider UnavailMD Robbi Scott Attending Provider [phone] Unavailable YAZMIN CHILEL Attending Unavailable Robbi Quezada V Referring Unavailable William STRICKLAND Attending Unavailable William STRICKLAND Attending Unavailable Ana Foley DO Primary Care Provider REQUEST, NONE LISTED Primary Care Unavaila ble DIAB ., JASSON Admitting Unavailable AUSTIN WHALEY Consulting Unavailable DIAB ., JASSON Attending Unavailable CHANDAN ., JASSON Consulting Unavailable REQUEST, NONE LISTED Primary Care Unavaila ble STRICKLAND ., DR THOMAS Consulting Unavailable STRICKLAND ., DR THOMAS Admitting Unavailable STRICKLAND ., DR THOMAS Attending Unavailable ZIEBER, DR MINERVA Mondragon Consulting Unavailable ANUJA LEE Consulting Unavailable STRICKLAND ., DR THOMAS Attending Unavailable PAMELA HILL Primary Care Unavailable STRICKLAND ., DR THOMAS Admitting Unavailable MISC, DR PUENTES Attending Unavailable MISC, DR PUENTES Admitting Unavailable PAMELA HILL Primary Care Unavailable MARCO A ., DR THOMAS Attending Unavailable MARCO A ., DR THOMAS Admitting Unavailable REQUEST, DR GUO LISTED Primary Care Unavaila ble STRICKLAND ., DR THOMAS Admitting Unavailable MARCO A ., DR THOMAS Attending Unavailable FRANCESCO, DR JACQUELINE Sparrow Consulting Unavailable REQUEST, NONE LISTED Primary Care Unavaila ble YAZMIN CHILEL Admitting Unavailable YAZMIN CHILEL Attending Unavailable SD CHILELAMAD Consulting Unavailable MISC, DOCTOR Admitting Unavailable MISC, [...] Admitting Unavailable LOCO ., BELINDA Attending Unavailable HILL, PAMELA Primary Care Unavailable KATKO, DONNA Aggarwal Consulting Unavailable ANDERSON, JAVIER Consulting Unavailable LOCO ., BELINDA Consulting Unavailable JUDI Marino Attending Provider DO Marbella Foleya Omar Primary Care Provider DO Jun Gaona Emergency Provider [phone] JUDI Marino Attending Provider DO Marbella Foleya Omar Primary Care Provider DO Jun Gaona Emergency Provider DO Christin Manzanares Emergency Provider MD Magdaleno Paige Admit Provider MD Magdaleno Paige Attending Provider MD Ghulam Betancourt Wendy Attending Provider [facility] Ana RIDDLE Primary Care Provider DO Marbella Foleya Omar Primary Care Provider [phone] JUDI Marino Attending Provider DO William Carver Emergency Provider DORIS Alberto Emergency Provider DO Jim Arcos Admit Provider [phone] DO Jim Arcos Other Provider MD Zeinab Poole Attending Provider JUDI Barrett Attending Provider JUDI Boone Emergency Provider [phone] Foley Ana A Primary Care Provider [phone] JUDI Marino Attending Provider [phone] DO Danial Gould Emergency Provider Foley DO, Ana Veronica Primary Care Provider [phone] FOLEY, ANA VERONICA Primary Care Unavailable DUARTE, ERIKA Referring Unavailable DUARTE, ERIKA Attending Unavailable DUARTE, DAMEON Aggarwal Admitting Unavailable FOLEY, ANA VERONICA Primary Care Unavailable FOLEY, ANA VERONICA Primary Care Unavailable DUARTE, ERIKA Referring Unavailable DUARTE, ERIKA Attending Unavailable FOLEY, ANA VERONICA Primary Care Unavailable DUARTE, ERIKA Referring Unavailable DUARTE, ERIKA Attending Unavailable KORY BOOTH Referring Unavailable FOLEY, ANA VERONICA Primary Care Unavailable DUARTE, ERIKA Referring Unavailable FOLEY, ANA VERONICA Primary Care Unavailable FOLEY, ANA VERONICA Primary Care Unavailable DUARTE, ERIKA Referring Unavailable THALIA BOSCH Attending Unavailable FOLEY, ANA VERONICA Primary Care Unavailable DUARTE, ERIKA Referring Unavailable FOLEY, ANA VERONICA Primary Care Unavailable DUARTE, ERIKA Admitting Unavailable DUARTE, ERIKA Attending Unavailable ROGER BLAIR Referring Unavailable STEPH AGUILAR Admitting Unavailable ABRAHAN ANDERSON Attending Unavailable FOLEY, ANA VERONICA Primary Care Unavailable FOLEY, ANA VERONICA Primary Care Unavailable DUARTE, ERIKA Referring Unavailable FOLEY, ANA VERONICA Primary Care Unavailable DUARTE, ERIKA Referring Unavailable Jun Gaona Attending Unavailable Foley, Ana A Primary Care Unavailable Jun Gaona Admitting Unavailable Copsey, Annabella Admitting Unavailable Copsey, Annabella Attending Unavailable Foley, Ana A Primary Care Unavailable Copsey, Annabella Attending Unavailable Copsey, Annabella Admitting Unavailable Foley, Ana A Primary Care Unavailable River Alberto Attending Unavailable Foley, Ana A Primary Care Unavailable River Alberto Admitting Unavailable Copsey, Annabella Attending Unavailable Foley, Ana A Primary Care Unavailable Copsey, Annabella Admitting Unavailable Danial Gould Attending Unavailable Foley, Ana A Primary Care Unavailable Danial Gould Admitting Unavailable Kary Boone Attending Unavailable Vicenta, Ana A Primary Care Unavailable Kary Boone Admitting Unavailable William Carver Attending Unavailable Vicenta, Ana A Primary Care Unavailable William Carver Admitting Unavailable Jim Arcos Admitting Unavailable Jim Arcos Consulting Unavailable Vicenta, Ana A Primary Care Unavailable Zeinab Poole Attending Unavailable Vicenta, Ana A Primary Care Unavailable Kip Hunt Attending Unavailable Jim Arcos Admitting Unavailable Medardo Muñiz Consulting UnavailJacqueline Higgins Consulting Unavailable Francisco Turpin Consulting Unavailable Ahmed, Rodriguez Consulting Unavailable Joaquin Eduardo Consulting Unavailable Zacarias Adamse Consulting Unavailable Luther Beatty Consulting Unavailable Asaad, Imad Consulting Unavailable Wan Gordon Consulting Unavailable Foley, Ana A Primary Care Unavailable Ray Betancourt Attending Unavailable Magdaleno Paige Admitting Unavailable Medications Current Medications Medication Drug Class(es) Dates Sig (Normalized) Sig (Original) acetaminophen 500 mg oral capsule (20 sources) Start: 07-01-2023 take 1 capsule by mouth every six hours as needed Start: 08-13-2022 End: 09-12-2022 take 2 tablets by mouth every six hours as needed acetaminophen (TYLENOL) 500 mg tablet Take 2 tablets by ORAL/FEEDING TUBE route every 6 hours as needed for pain. 60 tablet 0 08/13/2022 09/12/2022 Active Start: 07-27-2022 take 2 tablets by mo ut every six hours as needed acetaminophen (TYLENOL) [...] / HYDROcodone bitartrate 5 mg oral tablet (12 sources) Opioid Agonist Start: 07-01-2023 take 1 tablet by mouth twice daily as needed for pain, then take 8-10 tablets by mouth twice daily as needed for pain Hydrocodone-Acet aminophen Active 1 TAB PO Twice daily July 01, 2023 12:00am 1 tablet as needed for severe pain scale 8-10 Orally BID Start: 02-25-2023 HYDROcodone-Ac etaminophen 5-325 MG 1 tablet as needed for severe pain scale 8-10 Orally BID for 7 days Feb, Not-Taking/PRN albuterol 0.833 mg/ml / ipratropium bromide 0.167 mg/ml inhalant solution (1 source) Anticholinergic, beta2-Adrenergic Agonist Start: 09-25-2019 ipratropium-albuterol (DUONEB) nebulizer solution 1 ampule aluminum hydroxide 80 mg/ml / magnesium hydroxide 80 mg/ml / simethicone 8 mg/ml oral suspension (20 sources) take 10 mL by mouth every four hours as needed aluminum & magnesium hydroxide-simethicone (MAALOX PLUS EXTRA STRENGTH) 400-400-40 mg/5 mL suspension Take 10 mL by mouth every 4 hours as needed. 0 Active Comment on above: Take 10 mL by mouth every 4 hours as nee ded. amLODIPine 5 mg oral tablet (5 sources) Dihydropyridine Calcium Channel Roni Start: 03-22-2023 take 5 mg by mouth once daily Amlodipine Active 5 MG PO Daily March 22, 2023 1:00am ascorbic acid 500 mg chewable tablet (20 sources) Vitamin C Start: 07-01-2023 take 1 tablet by mouth twice daily Ascorbic Acid (Vitamin C) Active 1 TAB PO Twice daily July 01, 2023 12:00am FreeTextSi tablet Orally bid; Note: Source Status: Taking; Provider: Vicenta Perez ( ) Start: 07-15-2021 End: 02-04-2023 take 1 tablet by mouth once daily Ascorbic Acid (Vitamin C) (Vitamin C) 500 mg Tablet Discontinued 500 MG PO Daily July 15, 2021 12:00am February 04, 2023 11:47am take 1 tablet by joaquin th twice daily Ascorbic Acid 500 MG 1 tablet Orally bid Active bisacodyl 10 mg rectal suppository (20 sources) Stimulant Laxative Start: 01-25-2023 Bisacodyl A ctive 10 MG DC Daily February 04, 2023 1:00am Start: 09-24-2019 End: 07-27-2022 bisacodyl (DULCOLAX) [address] 1 suppository rectally daily 30 suppository 0 10/05/2019 11/04/2019 Active Comment on above: 10 mg [address]AL [address] e once daily. 10 [address]AL [address] e once daily as needed. calcium carbonate 1250 mg oral tablet (20 sources) Start: 07-01-2023 take 500 mg by mouth twice daily Calcium Carbonate Active 500 MG PO Twice daily July 01, 2023 12:00am take 1 tablet by joaquin every twelve hours Calcium 500 MG 1 tablet with meals Orall y Twice a day Not-Taking/PRN take 1 tablet by joaquin th every twelve hours Calcium 500 MG 1 tablet with meals Orall y Twice a day Active cephalexin 500 mg oral capsule (20 sources) Cephalosporin Antibacterial Start: 07-22-2023 take 500 mg by mouth twice daily Cephalexin Active 500 MG PO Twice daily 20 July 22, 2023 12:00am Start: 12-07-2022 End: 01-31-2023 take 500 mg by mouth every six hours Cephalexin Discontinued 500 MG PO Q6H 28 December 07, 2022 12:00am January 31, 2023 9:10am Start: 09-14-2017 End: 09-19-2017 take 1 capsule by mouth three times daily Cephalexin (Keflex) 500 mg capsule Discontinued 500 MG PO Three times daily 15 September 14, 2017 12:00am September 19, 2017 12:02am space evenly during waking hours ciprofloxacin 500 mg oral tablet (20 sources) Quinolone Antimicrobial Start: 10-27-2022 End: 01-25-2023 take 1 tablet by mouth twice daily ciprofloxacin HCl (CIPRO) 500 mg tablet Take 1 tablet by mouth twice daily. 6 tablet 0 10/27/2022 01/25/2023 Active Start: 03-23-2020 End: 09-30-2020 take 500 mg by mouth twice daily Ciprofloxacin Hcl Discontinued 500 MG PO Twice daily March 23, 2020 1:00am September 30, 2020 1:39pm Comment on above: Take 1 tablet by joaquin th twice daily. dexamethasone 0.5 mg oral tablet (20 sources) Corticosteroid Start: 07-01-19 take 0.5 mg by mouth once daily Dexamethasone Active 0.5 MG PO Daily July 01, 2023 12:00am Start: 03-23-2020 End: 02-04-2023 take 0.5 mg by mouth once daily Dexamethasone Discontinued 0.5 MG PO Daily March 23, 2020 1:00am February 04, 2023 11:47am diclofenac sodium 0.01 mg/mg topical gel (20 sources) Nonsteroidal Anti-inflammatory Drug Start: 07-01-2023 Diclofenac Sodium Active 2 GM TOPICAL As Directed July 01, 2023 12:00am Start: 06-29-2023 take 1 tablet by joaquin twice daily as needed Diclofenac Potassium Active 0 .ROUTE .COMPLEX 60 June 29, 2023 2:16pm TAKE 1 TABLET BY MOUTH TWICE A DAY NEEDED WITH FOOD OR MILK Start: 06-29-2023 End: 06-29-2023 take 50 mg by mouth twice daily Diclofenac Potassium Discontinued 50 MG PO Twice daily June 29, 2023 12:00am June 29, 2023 2:16pm Start: 06-11-2022 End: 03-22-2023 take 50 mg by mouth twice daily Diclofenac Potassium Discontinued 50 MG PO Twice daily February 04, 2023 1:00am March 22, 2023 12:44pm Diclofenac Sodiu m 1 % as directed Transdermal Not-Taking/PRN docusate sodium 100 mg oral capsule (20 [...] a day Not-Taking take 1 capsule by mo uth three times daily docusate sodium (COLACE) 100 mg capsule Take 100 mg by mouth three times daily. 0 Suspended Comment on above: Take 100 mg by mouth three times daily. Take 1 capsule by mo uth three times daily. dronabinol 2.5 mg oral capsule (20 sources) Cannabinoid Start: 07-01-2023 take 2.5 mg by mouth three times daily Dronabinol Active 2.5 MG PO Three times daily July 01, 2023 12:00am Start: 03-23-2020 End: 02-04-2023 take 1 capsule by mouth three times daily Dronabinol (Marinol) 2.5 mg Capsule Discontinued 2.5 MG PO Three times daily March 23, 2020 1:00am February 04, 2023 11:47am DULoxetine 30 mg delayed release oral capsule (20 sources) Serotonin and Norepinephrine Reuptake Inhibitor Start: 07-01-2023 take 30 mg by mouth once daily Duloxetine Active 30 MG PO Daily July 01, 2023 12:00am Start: 03-23-2020 End: 02-04-2023 take 30 mg by mouth once daily Duloxetine Discontinued 30 MG PO Daily March 23, 2020 1:00am February 04, 2023 11:47am 0.4 ml enoxaparin sodium 100 mg/ml prefilled [...] hours. Do not resume until Tuesday, 10/18 ertapenem 1000 mg injection (14 sources) Penem Antibacterial Start: 09-26-2022 End: 10-09-2022 ertapenem (INVANZ) 1 g in NaCl 0.9% [...] enously every 24 hours for 13 days. ferrous sulfate 325 mg oral tablet (20 sources) Start: 07-01-2023 take 325 mg by mouth twice daily Ferrous Sulfate Active 325 MG PO Twice daily July 01, 2023 12:00am Start: 03-23-2020 End: 02-04-2023 take 325 mg by mouth twice daily Ferrous Sulfate Discontinued 325 MG PO Twice daily March 23, 2020 1:00am February 04, 2023 11:47am take 1 tablet by joaquin th twice daily Ferrous Sulfate 325 (65 Fe) MG 1 tablet Orally bid for 90 day(s) Not-Taking take 1 tablet by joaquin th twice daily folic acid 1 mg oral tablet (14 sources) Start: 09-23-2019 folic acid (FOLVITE) tablet 1 mg Comment on above: Take 1 mg by mouth o nce daily. gabapentin 400 mg oral capsule (20 sources) Anti-epileptic Agent Start: 07-01-2023 take 400 mg by mouth three times daily Gabapentin Active 400 MG PO Three times daily July 01, 2023 12:00am Start: 06-14-2023 End: 07-01-2023 take 1 tablet by mouth three times daily Gabapentin Discontinued 0 .ROUTE .COMPLEX 270 June 14, 2023 7:41am July 01, 2023 1:32pm TAKE 1 TABLET BY MOUTH THREE TIMES A DAY Start: 02-04-2023 End: 06-14-2023 take 600 mg by mouth three times daily Gabapentin Discontinued 600 MG PO Three times daily February 04, 2023 1:00am June 14, 2023 7:41am Start: 09-26-2022 End: 09-26-2023 take 1 capsule by mouth three times daily gabapentin (NEURONTIN) 300 mg capsule 1 capsule by ORAL/FEEDING TUBE route three times daily. 0 09/26/2022 09/26/2023 Active Start: 09-26-2022 End: 09-26-2023 take 300 mg by mouth three times daily Gabapentin Active 300 MG PO Three times daily February 04, 2023 12:00am Start: 04-10-2020 take 1 capsule by mo uth every eight hours Gabapentin 400 MG 1 capsule Orally tid for 30 day(s) Mar, Not-Taking/PRN Start: 03-23-2020 End: 02-04-2023 take 400 mg by mouth three times daily Gabapentin Discontinued 400 MG PO Three times daily March 23, 2020 1:00am February 04, 2023 11:47am Start: 10-03-2019 take 2 capsules by m [...] at 0315 take 1 tablet by joaquin every eight hours Gabapentin 600 MG 1 tablet Orally TID for 90 days Active gabapentin (NEUR ONTIN) 100 mg capsule Take 600 mg by mouth three times daily. 0 Suspended Comment on above: Take 600 mg by mouth three times daily. 1 capsule by ORAL/FE EDING TUBE route three times daily. gentamicin 0.001 mg/mg topical ointment (1 source) Start: 04-25-2023 Gentamicin Active 1 APPLIC TOPICAL .every other day April 25, 2023 1:00am apply to the right hip ulcer as per wound care orders Glycerin (1 source) Non-Standardized Chemical Allergen Start: 07-01-2023 glycerin Active 2 DROPS OPHTHALMIC As Directed July 01, 2023 12:00am sodium hypochlorite 2.5 mg/ml topical solution (1 source) Start: 04-25-2023 Sodium Hypochlorite (Dakin's Solution) 0.25 % solution Active 1 APPLIC TOPICAL .every other day 473 April 25, 2023 1:00am cleanse all ulcers as per wound care orders please ibuprofen 600 mg oral tablet (12 sources) Nonsteroidal Anti-inflammatory Drug Start: 10-04-2019 ibuprofen (ADVIL;MOTRIN) tablet 600 mg Start: 09-26-2019 End: 10-04-2019 ibuprofen (ADVIL;MOTRIN) tab let 400 mg Start: 09-14-2017 End: 01-26-2018 Ibuprofen Discontinued 600 M G PO every 6 to 8 hours September 14, 2017 12:00am January 26, 2018 9:16am ipratropium/albuterol sulfat e (DUONEB INHALATION) (20 sources) ipratropium/albu terol sulfate (DUONEB INHALATION) Inhale as instructed as needed. 0 Active ipratropium/albu terol sulfate (DUONEB INHALATION) Inhale as instructed as needed. 0 Suspended Comment on above: Inhale as instructed as needed. ketorolac tromethamine 10 mg oral tablet (12 sources) Nonsteroidal Anti-inflammatory Drug, Cyclooxygenase Inhibitor Start: 3 take 1 tablet by mouth every six hours as needed keTORolac (TORADOL) 10 mg tablet Take 1 tablet by mouth every 6 hours as needed. 20 tablet 0 12/16/2022 Active Comment on above: Take 1 tablet by joaquin every 6 hours as needed. lidocaine 0.05 mg/mg medicated patch (20 sources) Antiarrhythmic, Amide Local Anesthetic Start: 4 Lidocaine Active 1 PATCH TOPICAL Daily July 01, 2023 12:00am FreeTextSi patch remove after 12 hours Externally Once a day; Note: Source Status: Taking; Refills: 3; Provider: Chuckie Mondragon Start: 10-27-2022 End: 11-26-2022 lidocaine urojet 2 % 10 mL t opical gel (GLYDO) Start: 09-01-2022 End: 10-01-2022 lidocaine urojet 2 % 10 mL t opical gel (GLYDO) Start: 09-30-2020 End: 02-04-2023 apply 1 dose topically twice daily Lidocaine Discontinued 2 PATCH TOPICAL Twice daily September 30, 2020 12:00am February 04, 2023 11:47am Lidocaine 5 % 1 patch remove after 12 hours Externally Once a day for 30 day(s) Not-Taking/PRN loratadine 10 mg oral tablet (20 sources) Start: 02-04-2023 take 10 mg by mouth once daily Loratadine Active 10 MG PO Daily February 04, 2023 1:00am m-vit,tx,iron,mins/calc/ folic (THERA M PLUS ORAL) (20 sources) m-vit,tx,iron,mi ns/calc /folic (THERA M PLUS ORAL) Take by mouth once daily. 0 Active m-vit,tx,iron,mi ns/calc/folic (THERA M PLUS ORAL) Take by mouth once daily. 0 Suspended Comment on above: Take by mouth once d aily. melatonin 1 mg oral tablet (4 sources) [...] mg by mouth d aily at bedtime. multivitamin,tx-iron- minerals (1 source) Start: 4 take 1 tablet by mouth once daily multivitamin,tx-iron -minerals Active 1 TAB PO Daily July 01, 2023 12:00am ondansetron 4 mg oral tablet (20 sources) Serotonin-3 Receptor Antagonist Start: 4 take 4 mg by mouth once daily Ondansetron Hcl Active 4 MG PO Daily July 01, 2023 12:00am Start: 09-30-2020 End: 02-04-2023 take 4 mg by mouth every six hours Ondansetron Discontinued 4 MG PO Q6H September 30, 2020 12:00am February 04, 2023 11:47am Start: 10-08-2019 ondansetron (Z OFRAN) injection 4 mg take 1 tablet by joaquin once daily as needed Zofran 4 MG 1 tablet Orally Once a day Not-Taking/PRN oxybutynin chloride 5 mg oral tablet (20 sources) Cholinergic Muscarinic Antagonist Start: 07-01-2023 take 5 mg by mouth twice daily Oxybutynin Chloride Active 5 MG PO Twice daily July 01, 2023 12:00am Start: 09-01-2022 take 1 tablet by joaquin th three times daily oxybutynin (DITROPAN) 5 mg tablet Take 1 tablet by mouth three times daily. 90 tablet 3 09/01/2022 Active Start: 03-23-2020 End: 02-04-2023 take 5 mg by mouth twice daily Oxybutynin Chloride Dis continued 5 MG PO Twice daily March 23, 2020 1:00am February 04, 2023 11:47am Comment on above: Take 1 tablet by [...] as needed. Take 1 tablet by joaquin th every 8 hours as needed for pain. Take 1 tablet by joaquin th every 4 hours as needed. pantoprazole 40 mg delayed release oral tablet (20 sources) Proton Pump Inhibitor Start: 3 take 1 tablet by mouth once daily, then take 6 tablets by mouth in the morning pantoprazole DR (PROTONIX) 40 mg tablet Take 1 tablet by mouth DAILY (6 AM). 0 09/26/2022 Active Comment on above: Take 1 tablet by joaquin th DAILY (6 AM). polyethylene glycol 3350 66198 mg powder for oral solution (20 sources) Osmotic Laxative Start: Polyethylene Glycol 3350 (Healthylax) 17 gram Powder In Packet Active 17 GM PO Twice daily April 19, 2023 1:00am Start: 02-25-2023 MiraLax 17 GM/ SCOOP 1 scoop mixed with 8 ounces of fluid Orally Once a day for 30 days Feb, Active Start: 02-14-2023 End: 04-19-2023 Polyethylene Glycol 3350 (Mi ralax) 17 gram powder in packet Discontinued 17 GM PO Daily 04 06February 14, 2023 1:00am April 19, 2023 1:53pm mix into 4-8 oz. of any hot/cold/room [...] powder Discontinued 17 GM PO Twice daily March 23, 2020 1:00am February 04, 2023 11:47am mix into 4-8 oz. of any hot/cold/room [...] ounces of liquid and take as directed. potassium-sodium phosphates (PHOS-NAK) 280-160-250 mg pwpk (20 sources) Start: 09-26-2022 potassium-sodium phosphates (PHOS-NAK) 280-160-250 mg pwpk Take [...] on above: Take 2 Packets by mo [facility] twice daily with meals for 7 days. psyllium 3400 mg powder for oral suspension (3 sources) Start: 04-19-2023 Psyllium Husk (Metamucil) 3.4 gram/5.4 gram powder Active 1 TBSP PO Daily April 19, 2023 1:00am mix into at least 8 oz of water or juice before administering Senna Leaves (6 sources) take 1 tablet by mouth twice daily as needed Senna 8.6 MG 1 tablet as needed Orally BID for 90 days [facility] at bedtime as needed Senna 8.6 MG 1 tablet at bedtime as needed Orally Once a day for 90 day(s) Active Sennosides (Senna) 8.6 mg Tablet (10 sources) Start: 03-23-2020 take 1 tablet by mouth once daily at bedtime Sennosides (Senna) 8.6 mg Tablet Active 8.6 MG PO Daily at bedtime March 23, 2020 1:00am Start: 03-23-2020 take 1 tablet by joaquin th once daily at bedtime Sennosides (Senna) 8.6 mg Tablet Active 8.6 MG PO Daily at bedtime March 23, 2020 12:00am sennosides, mcc 8.6 mg oral capsule (20 sources) Sennosides (ELIAS A) 8.6 mg cap Take 17.2 mg by mouth. 0 Active take 1 tablet by mouth every twe lve hours Senna 8.6 MG 1 tablet as [...] 125 mL/hr, CONTINUOUS, Starting 09/23/19 at 0315 sodium phosphate, dibasic 59.3 mg/ml / sodium phosphate, monobasic 161 mg/ml enema (1 source) Start: 07-15-2023 Sodium Phospha chante (Fleet Enema) 19-7 gram/118 mL enema Active 118 ML DC Daily 532 July 15, 2023 12:00am tamsulosin hydrochloride 0.4 mg oral capsule (20 sources) alpha-Adrenergi c Roni Start: 05-18-2023 End: 06-17-2023 take 1 capsule by mouth once daily tamsulosin (FLOMAX) 0.4 mg Take 1 capsule by mouth once daily. Stop two days after your stent is removed. 30 capsule 0 05/18/2023 Active Start: 03-23-2020 End: 05-11-2023 take 0.4 mg by mouth once daily Tamsulosin Discontinued 0.4 MG PO Daily March 23, 2020 1:00am February 04, 2023 11:47am Comment on above: Take 1 capsule by [facility] once daily. Stop two days after your stent is removed. thiamine 100 mg oral tablet (15 sources) Start: 0 take 1 tablet by mouth once daily vitamin B-1 100 MG tablet Take 1 tablet by mouth daily for 3 days 3 tablet 0 10/04/2019 Active Comment on above: Take 100 mg by mouth once daily. traMADol hydrochloride 50 mg oral tablet (7 sources) Opioid Agonist Start: 3 take 50 mg by mouth every twelve hours Tramadol Active 50 MG PO Q12H 14 February 06, 2023 1:00am trospium chloride 20 mg oral tablet (20 sources) Cholinergic Muscarinic Antagonist Start: 4 take 1 tablet by mouth twice daily before mealtime trospium (SANCTURA) 20 mg tablet Take 1 tablet by mouth two times a day before meals. 180 tablet 3 06/17/2023 Active Start: 08-13-2022 End: 06-14-2023 take 1 tablet by mouth twice daily before mealtime trospium (SANCTURA) 20 mg tablet Take 1 tablet by mouth two times a day before meals. 180 tablet 3 06/17/2023 Active Comment on above: Take 1 tablet by joaquin twice daily before meals. Take 1 tablet by joaquin two times a day before meals. zinc oxide 0.4 mg/mg paste (20 sources) Start: 09-26-2022 zinc oxide-cod liver oil (DESITIN 40%) 40 % paste Apply 1 application to affected area twice daily. 0 09/26/2022 Active Comment on above: Apply 1 application to affected area twice daily. zinc sulfate 220 mg oral capsule (20 sources) Start: 07-01-2023 take 50 mg by mouth once daily Zinc Sulfate Active 50 MG PO Daily July 01, 2023 12:00am take 1 capsule by [facility] every twenty-four hours Zinc 220 (50 Zn) MG 1 capsule Orally Onc e a day Not-Taking/PRN Completed/Discontinued Medications Medication Drug Class(es) Dates Sig (Normalized) Sig (Original) amantadine hydrochloride 100 mg oral capsule (12 [...] 0.1-0.3 % as directed Ophthalmic PRN Not-Taking atorvastatin 10 mg oral tablet (10 sources) HMG-CoA Reductase Inhibitor Start: 07-15-2021 End: 02-04-2023 take 10 mg by mouth once daily Atorvastatin Discontinued 10 MG PO Daily July 15, 2021 12:00am February 04, 2023 11:47am baclofen 20 mg oral tablet (20 sources) gamma-Aminobutyri c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 of iterative reconstruction technique. COMPARISON: 03/15/2023 FINDINGS: Lower Chest: Mild dependent scarring and atelectasis is noted in the lung bases. ABDOMEN: Liver: Within normal limits. Bile Ducts: Normal caliber. Gallbladder: Stones layer dependently within the gallbladder lumen. Pancreas: Within normal limits. Spleen: Within normal limits. Adrenals: Within normal limits. Kidneys: There is a 2 mm stone in the right renal collecting system. Pelvis: Reproductive Organs: No pelvic masses. Ureters: Within normal limits. Bladder: There is a Hernandez catheter in the bladder. The bladder wall is mildly thickened without adjacent fat stranding. This appears be chronic in nature. Bowel: There is a large amount of stool within the rectum and colon suggesting constipation. There is no bowel obstruction. There is a normal appendix extending into the midline. Mesenteric Lymph Nodes: No enlarged mesenteric lymph nodes. Peritoneum: No ascites or free air, no fluid collection. Vessels: Atherosclerotic changes are noted in the abdominal aorta and its branches Retroperitoneum: Within normal limits. Abdominal Wall: Within normal limits. Bones: Degenerative changes are noted in the thoracolumbar spine, hips, and sacroiliac joints. Metallic foreign bodies are noted along the left hip. CT/CT abdomen pelvis wo con IMPRESSION: There is a Hernandez catheter in the bladder. The bladder wall is mildly thickened without adjacent fat stranding. This appears be chronic in nature. No bowel obstruction or obstructive uropathy. There is a 2 mm stone at the inferior pole of the right renal collecting system. Gallstones are present. There is a large amount of stool within the rectum and colon suggesting constipation. Impression dictated by: Erika Pitts M.D.07/22/2023 7:49 PM Dictation Location: [place] [address] Transcribed By: [facility] 07/22/231948 Dictated By: Erika Pitts II, MD 07/22/231941 Signed By: 07/22/231948 Normal [facility] Calcium [Mass/volume] in Ser um or PlasmaOrdered By: Danial Gould on 07-22-2023 Calcium [Mass/Vol] 9.3 mg/dL Normal 8.6-10.3 [facility] Comment on above: Performed By: #### C EDILSON ROBLEDOPLUS #### [address] Carbon dioxide, total [Moles /volume] in Serum or PlasmaOrdered By: Danial Gould on 07-22-2023 CO2 [Moles/Vol] 24.7 mmol/L Normal 21.0-31.0 [facility] Comment on above: Performed By: #### C GUSTAVO ROBLEDOONRENZOPLUS #### [address] Chloride [Moles/volume] in S jennifer or PlasmaOrdered By: Danial Gould on 07-22-2023 Chloride [Moles/Vol] 108 mmol/L High 98-107 [facility] Comment on above: Performed By: #### C EDILSON ROBLEDOPLUS #### [facility] [address] [place] [address] Complete Blood Count Auto Di ffon 07-22-2023 Mean Corpuscular HGB Conc 33.2 g/dL Normal 32.5-35.6 [facility] Comment on above: Performed By: #### C BC BMP #### [address] Monocytes/100 WBC (Bld) 19.05 % Normal 0.00-20.00 [facility] Comment on above: Performed By: #### C BC BMP #### [place] [address] [place] NRBC% 0.1 /100{WBC} Normal 0-0.[address] [facility] Comment on above: Performed By: #### C BC, BMP #### [address] Comprehensive Metabolic Pane kimberly 07-22-2023 Albumin [Mass/Vol] 3.9 g/dL Normal 3.5-5.7 [facility] Comment on above: Performed By: #### C UU, ADDONUAPLUS #### [place] [address] [place] Creatinine Clr Calc Pharmacy 84.39 Normal [facility] Comment on above: Performed By: #### C UU, ADDONUAPLUS #### [place] [address] [place] GFR/1.73 sq M.predicted MDRD (S/P/Bld) [Vol rate/Area] mL/min/{1.73_m2} Normal [facility] Comment on above: Performed By: #### C UU, ADDONUAPLUS #### [address] Creatinine [Mass/volume] in Serum or PlasmaOrdered By: Danial Gould on 07-22-2023 Creatinine [Mass/Vol] 0.86 mg/dL Normal 0.70-1.30 [facility] Comment on above: Performed By: #### C UU, ADDONUAPLUS #### [place] [address] [place] Dipstick and Microscopicon 0 07-22-2023 Amorphous Sediment,Urine Rare Normal [facility] Comment on above: Order Comment: Name Collection Type:: Hernandez Catheter Performed By: #### C BC, BMP #### [address] Appearance (U) Turbid Critically abnormal Clear [facility] Comment on above: Order Comment: Name Collection Type:: Hernandez Catheter Performed By: #### C BC, BMP #### [place] [address] [place] Bacteria,Urine 2+ High None Seen [facility] Comment on above: Order Comment: Name Collection Type:: Hernandez Catheter Performed By: #### C BC, BMP #### [place] [address] [place] Bilirubin,Urine Negative Normal Negative [facility] Comment on above: Order Comment: Name Collection Type:: Hernandez Catheter Performed By: #### C BC, BMP #### [place] [address] [place] Glucose Ql (U) Normal Normal Normal [facility] Comment on above: Order Comment: Name Collection Type:: Hernandez Catheter Performed By: #### C BC, BMP #### [address] Hyaline Casts,Urine 0-1 Normal 0-8 [facility] Comment on above: Order Comment: Name Collection Type:: Hernandez Catheter Result Comment: PERF ORMED BY: [place] [address] PATHOLOGIST MANAGER [employer] ERNETTA MONACO M.D. Performed By: #### C BC, BMP #### [address] Ketones Ql (U) Negative Normal Negative [facility] Comment on above: Order Comment: Name Collection Type:: Hernandez Catheter Performed By: #### C BC, BMP #### [place] [address] [place] Leukocyte esterase Test strip Ql (U) 4+ High Negative [facility] Comment on above: Order Comment: Name Collection Type:: Hernandez Catheter Performed By: #### C BC, BMP #### [place] [address] [place] Nitrite,Urine Positive High Negative [facility] Comment on above: Order Comment: Name Collection Type:: Hernandez Catheter Performed By: #### C BC, BMP #### [place] [address] [place] Occult Blood,Urine 3+ High Negative [facility] Comment on above: Order Comment: Name Collection Type:: Hernandez Catheter Result Comment: PERF ORMED BY: [place] [address] PATHOLOGIST MANAGER [employer] RENETTA MONACO M.D. Performed By: #### C BC, BMP #### [place] [address] [place] RBC,Urine Innumerable High 0-4 [facility] Comment on above: Order Comment: Name Collection Type:: Hernandez Catheter Performed By: #### C BC, BMP #### [place] [address] [place] Specificy [place],Urine 1.023 Normal 1.001-1.030 [facility] Comment on above: Order Comment: Name Collection Type:: Hernandez Catheter Performed By: #### C BC, BMP #### [address] Squamous Epithelial Cell,Urine 0-1 Normal 0-2 [facility] Comment on above: Order Comment: Name Collection Type:: Hernandez Catheter Performed By: #### C BC, BMP #### [place] [address] [place] Urobilinogen,Urine Normal Normal Normal [facility] Comment on above: Order Comment: Name Collection Type:: Hernandez Catheter Performed By: #### C BC, BMP #### [place] [address] [place] WBC,Urine Innumerable High 0-4 [facility] Comment on above: Order Comment: Name Collection Type:: Hernandez Catheter Performed By: #### C BC, BMP #### [place] [address] [place] ECG 12 lead ECGon 07-22-2023 ECG 12 lead ECG [facility] [place] [address] Electrocardiograph Report Signed Patient: Fede Guerra Sr MR#: [id number] : 1955 Acct:[id number] Age/Sex: 68 / M ADM Date: 07/22/23 Loc: ER Room: Type: DEP ER Attending Dr: Ordering Provider: Danial Gould DO Date of Service: 07/22/23 ECG/ECG 12 lead ECG: Urogenital Copies to: Test Reason : Blood Pressure : 138/077 mmHG Vent. Rate : 078 BPM Atrial Rate : 078 BPM P-R Int : 180 ms QRS Dur : 082 ms QT Int : 362 ms P-R-T Axes : 074 017 059 degrees QTc Int : 412 ms Normal sinus rhythm Normal ECG When compared with ECG of 19-APR-2023 10:52, ST no longer elevated in Lateral leads Confirmed by DANIAL GOULD DO ([id number]) on 07/23/2023 1:23:31 AM Referred By: Electronically Signed By:DANIAL GOULD DO Transcribed By: MUS Signed By Danial Gould DO 07/22 0123 Normal [facility] Erythrocyte distribution wid th [Ratio] by Automated countOrdered By: Danial Gould on 07-22-2023 Erythrocyte distribution width (RBC) [Ratio] 14.7 % Normal 12.0-14.8 [facility] Comment on above: Performed By: #### C PETEY, BMP #### [facility] [address] Erythrocytes [#/volume] in B lood by Automated countOrdered By: Danial Gould on 07-22-2023 RBC (Bld) [#/Vol] 4.55 10*6/uL Normal 3.90-5.60 [facility] Comment on above: Performed By: #### C PETEY, BMP #### [facility] [address] Glucose [Mass/volume] in Ser um or PlasmaOrdered By: Danial Gould on 07-22-2023 Glucose [Mass/Vol] 125 mg/dL High 70-100 [facility] Comment on above: ADA recommended refe rence rangeRandom Glucose Reference Range is dependent on time and content of last meal. Glucose of more than 200 mg/dL in a nonstressed, ambulatory subject supports the diagnosis of Diabetes Mellitus. Result Comment: [place] om Glucose Reference Range is dependent on time and content of last meal. Glucose of more than 200 mg/dL in a nonstressed, ambulatory subject supports the diagnosis of Diabetes Mellitus. ADA recommended reference range Performed By: #### C UU, ADDONUAPLUS #### [address] Hematocrit [Volume Fraction] of Blood by Automated countOrdered By: Danial Gould on 07-22-2023 Hematocrit (Bld) [Volume fraction] 38.9 % Normal 38.8-50.0 [facility] Comment on above: Performed By: #### C BC, BMP #### [address] Hemoglobin [Mass/volume] in BloodOrdered By: Danial Gould on 07-22-2023 Hemoglobin (Bld) [Mass/Vol] 12.9 g/dL Low 13.0-17.0 [facility] Comment on above: Performed By: #### C BC, BMP #### [address] Ketones Auto test strip (U) [Mass/Vol]Ordered By: Danial Gould on 07-22-2023 Ketones (U) [Mass/Vol] Negative Negative [facility] - UrinalysisOrder ed By: Danial Gould on 07-22-2023 Hyaline casts LM Ql (Urine sed) 0-1 [LPF] 0-8 [facility] Leukocytes [#/volume] correc mayte for nucleated erythrocytes in Blood by Automated counOrdered By: Danial Gould on 07-22-2023 WBC corrected for nucl RBC Auto (Bld) [#/Vol] 4.1 10*3/uL 4.1-10.5 [facility] Leukocytes [#/volume] in Blo od by Automated countOrdered By: Danial Gould on 07-22-2023 WBC (Bld) [#/Vol] 4.1 10*3/uL Normal 4.1-10.5 [facility] Comment on above: Performed By: #### C BC, BMP #### [address] Lipase [Enzymatic activity/v olume] in Serum or PlasmaOrdered By: Danial Gould on 07-22-2023 Lipase [Catalytic activity/Vol] 24.0 U/L Normal 11.0-82.0 [facility] Comment on above: Result Comment: PERF ORMED BY: [place] [address] PATHOLOGIST MANAGER [employer] RENETTA MONACO M.D. Performed By: #### C UU, ADDONUAPLUS #### [address] Lymphocytes [#/volume] in Bl ood by Automated countOrdered By: Danial Gould on 07-22-2023 Lymphocytes (Bld) [#/Vol] 1.5 10*3/uL Normal 1.00-4.8 [facility] Comment on above: Performed By: #### C BC, BMP #### [address] Lymphocytes/100 leukocytes i n Blood by Automated countOrdered By: Danial Gould on 07-22-2023 Lymphocytes/100 WBC (Bld) 37.7 % Normal . [facility] Comment on above: Performed By: #### C BC, BMP #### [address] MCH [Entitic mass] by Automa mayte countOrdered By: Danial Gould on 07-22-2023 MCH (RBC) [Entitic mass] 28.4 pg Normal 27.5-35.2 [facility] Comment on above: Performed By: #### C BC, BMP #### [address] MCHC Auto (RBC) [Mass/Vol]Or dered By: Danial Gould on 07-22-2023 MCHC (RBC) [Mass/Vol] 33.2 g/dL 32.5-35.6 [facility] MCV [Entitic volume] by Auto mated countOrdered By: Danial Gould on 07-22-2023 MCV (RBC) [Entitic vol] 85.4 fL Normal 83.5-101 F [facility] Comment on above: Performed By: #### C BC, BMP #### [address] [place] [address] [place] Monocyte distribution width [Entitic volume] in Blood by AutomatedOrdered By: Danial Gould on 07-22-2023 Monocyte distribution width Auto (Bld) [Entitic vol] 19.05 % 0.00-20.00 [facility] Neutrophils [#/volume] in Bl ood by Automated countOrdered By: Danial Gould on 07-22-2023 Neutrophils (Bld) [#/Vol] 1.8 10*3/uL Normal 1.8-7.7 [facility] Comment on above: Performed By: #### C BC, BMP #### [facility] [address] Nitrite Test strip Ql (U)Ord ered By: Danial Gould on 07-22-2023 Nitrite Ql (U) Positive Negative [facility] No Panel InformationOrdered By: Danial Gould on 07-22-2023 Estimated GFR (CKD-EPI) > 60.0 mL/Min [facility] Creatinine Clearance (Chem 84.39 [facility] Nucleated erythrocytes [Pres ence] in Blood by Automated countOrdered By: Danial Gould on 07-22-2023 Nucleated RBC Auto Ql (Bld) 0.1 /100{WBC} 0-0.5 [facility] Platelet mean volume [Entiti c volume] in Blood by Automated countOrdered By: Danial Gould on 07-22-2023 Platelet mean volume (Bld) [Entitic vol] 8.0 fL Normal 6.6-10.1 [facility] Comment on above: Performed By: #### C PETEY, BMP #### [facility] [address] [place] [address] [place] Platelets [#/volume] in Bloo d by Automated countOrdered By: Danial Gould on 07-22-2023 Platelets (Bld) [#/Vol] 214 10*3/uL Normal 150-450 [facility] Comment on above: Performed By: #### C BC, BMP #### [facility] [address] [place] [address] [place] Potassium [Moles/volume] in Serum or PlasmaOrdered By: Danial Gould on 07-22-2023 Potassium [Moles/Vol] 4.3 mmol/L Normal 3.5-5.1 [facility] Comment on above: Performed By: #### C UU, ADDONUAPLUS #### [address] Protein [Mass/volume] in Ser um or PlasmaOrdered By: Danial Gould on 07-22-2023 Protein [Mass/Vol] 7.0 g/dL Normal 6.4-8.9 [facility] Comment on above: Performed By: #### C UU, ADDONUAPLUS #### [address] Serum globulin measurement b y calculation (mass/volume)Ordered By: Danial Gould on 07-22-2023 Globulin (S) [Mass/Vol] 3.1 g/dL Normal [facility] Comment on above: Performed By: #### C UU, ADDONUAPLUS #### [address] Serum or plasma albumin/glob ulin mass ratioOrdered By: Danial Gould on 07-22-2023 Albumin/Globulin [Mass ratio] 1.3 {ratio} Normal [facility] Comment on above: Performed By: #### C UU, ADDONUAPLUS #### [address] Serum or plasma anion gap de terminationOrdered By: Danial Gould on 07-22-2023 Anion gap [Moles/Vol] 10.6 mmol/L Normal 6.0-15.0 [facility] Comment on above: Performed By: #### C UU, ADDONUAPLUS #### [place] [address] [place] Sodium [Moles/volume] in Ser um or PlasmaOrdered By: Danial Gould on 07-22-2023 Sodium [Moles/Vol] 139 mmol/L Normal 136-145 [facility] Comment on above: Performed By: #### C UU, ADDONUAPLUS #### [address] [place] [address] [place] Specific gravity Auto test s trip (U) [Rel density]Ordered By: Danial Gould on 07-22-2023 Specific gravity (U) [Rel density] 1.023 1.001-1.030 [facility] Squamous epithelial cells de tection in urine sediment by light microscopyOrdered By: Danial Gould on 07-22-2023 Epithelial cells.squamous LM Ql (Urine sed) 0-1 [HPF] 0-2 [facility] Urea nitrogen [Mass/volume] in Serum or PlasmaOrdered By: Danial Gould on 07-22-2023 Urea nitrogen [Mass/Vol] 22 mg/dL Normal 7-25 [facility] Comment on above: Performed By: #### C UU, ADDNICOLE #### [address] Urine Cultureon 07-22-2023 Bacteria identified Cx Nom (U) ORGANISM: Klebsiella pneumoniae (ESBL) (O:KLEPNEESBL) [place] Count >100,000 Aerobic SCOTT Charge (NMIC56) ----- SUSCEPTIBILITY ---- ORGANISM: O:KLEPNSHARLENE ANTIBIOTIC INTERPRETATION SCOTT Amikacin S <16 Amoxacillin/K Clavulanate S <8 Ampicillin/Sulbactam R >16 Aztreonam ESBL >16 Cefazolin R* >16 Cefepime R* 16 Ceftazidime ESBL 16 Ceftazidime/Avibacta m S <4 Ceftolozane/Tazobact am S <2 Ceftriaxone ESBL >32 Cefuroxime R* >16 Ciprofloxacin R 2 Ertapenem S <0.5 Gentamicin R >8 Levofloxacin I 1 Meropenem S <1 Meropenem/Vaborbacta m S <2 Nitrofurantoin S <32 Piperacillin/Tazobac alas S <8 Tetracycline S <4 Tigecycline S <2 Tobramycin I 8 Trimethoprim/Sulfame thoxazole R >2 S = SUSCEPTIBLE [...] RESISTANT TO ALL B-LACTAM DRUGS. PERFORMED BY: [place] [address] PATHOLOGIST MANAGER [employer] RENETTA MONACO M.D. Normal [facility] Comment on above: Performed By: #### C PETEY, BMP #### [address] Urine bacteria detection by automated methodOrdered By: Danial Gould on 07-22-2023 Bacteria Auto Ql (U) 2+ None Seen [facility] Urine clarity by refractomet ry automatedOrdered By: Danial Gould on 07-22-2023 Clarity Refractometry automated (U) Turbid Clear [facility] Urine glucose measurement by automated test strip (mass/volume)Ordered By: Danial Gould on 07-22-2023 Glucose Auto test strip (U) [Mass/Vol] Normal mg/dL Normal [facility] Urine hemoglobin detection b y automated test stripOrdered By: Danial Gould on 07-22-2023 Hemoglobin Auto test strip Ql (U) 3+ Negative [facility] Urine leukocyte esterase det ection by automated test stripOrdered By: Danial Gould on 07-22-2023 Leukocyte esterase Auto test strip Ql (U) 4+ Negative [facility] Urine pH measurement by auto mated test stripOrdered By: Danial Gould on 07-22-2023 pH (U) 7.0 [pH] Normal 5.0-9.0 [facility] Comment on above: Order Comment: Name Collection Type:: Hernandez Catheter Performed By: #### C PETEY, BMP #### [facility] [address] [place] [address] Urine protein measurement by automated test strip (mass/volume)Ordered By: Danial Gould on 07-22-2023 Protein (U) [Mass/Vol] 100 mg/dL High Negative [facility] Comment on above: Order Comment: Name Collection Type:: Hernandez Catheter Performed By: #### C PETEY, BMP #### [address] Urobilinogen Auto test strip (U) [Mass/Vol]Ordered By: Danial Gould on 07-22-2023 Urobilinogen (U) [Mass/Vol] Normal mg/dL Normal [facility] Automated basophil %Ordered By: Kary Boone on 04-22-2023 Basophils/100 WBC (Bld) 1.0 % Normal . [facility] Comment on above: Performed By: #### C UU, ADDONUAPLUS #### [address] Automated basophil countOrde red By: Kary Boone on 04-22-2023 Basophils (Bld) [#/Vol] 0.1 10*3/uL Normal 0.0-0.2 [facility] Comment on above: Result Comment: PERF ORMED BY: [place] [address] PATHOLOGIST MANAGER [employer] RENETTA MONACO M.D. Performed By: #### C UU, ADDONUAPLUS #### [address] Automated blood monocyte cou ntOrdered By: Kary Boone on 04-22-2023 Monocytes (Bld) [#/Vol] 0.7 10*3/uL Normal 0.0-0.8 [facility] Comment on above: Performed By: #### C UU, ADDONUAPLUS #### [address] Automated eosinophil %Ordere d By: Kary Boone on 04-22-2023 Eosinophils/100 WBC (Bld) 7.0 % Normal . [facility] Comment on above: Performed By: #### C UU, ADDONUAPLUS #### [address] Automated eosinophil countOr dered By: Kary Boone on 04-22-2023 Eosinophils (Bld) [#/Vol] 0.4 10*3/uL Normal 0.0-0.45 [facility] Comment on above: Performed By: #### C UU, ADDONUAPLUS #### [address] Automated monocyte %Ordered By: Kary Boone on 04-22-2023 Monocytes/100 WBC (Bld) 13.3 % Normal . [facility] Comment on above: Performed By: #### C UU, ADDONUAPLUS #### [address] Automated neutrophil %Ordere d By: Kary Boone on 04-22-2023 Neutrophils/100 WBC (Bld) 45.2 % Normal . [facility] Comment on above: Performed By: #### C UU, ADDONUAPLUS #### [address] Basic Metabolic Panelon 03-29 Creatinine Clr Calc Pharmacy 87.50 Normal [facility] Comment on above: Result Comment: PERF ORMED BY: [place] [address] PATHOLOGIST MANAGER [employer] RENETTA MONACO M.D. Performed By: #### C UU, ADDONUAPLUS #### [address] GFR/1.73 sq M.predicted MDRD (S/P/Bld) [Vol rate/Area] mL/min/{1.73_m2} Normal [facility] Comment on above: Performed By: #### C UU, ADDONUAPLUS #### [address] Blood Cultureon 04-22-2023 Bacteria identified Cx Nom (Bld) NO GROWTH 5 DAYS PERFORMED BY: [place] [address] PATHOLOGIST MANAGER [employer] RENETTA MONACO M.D. Normal [facility] Comment on above: Performed By: #### C UU, ADDONUAPLUS #### [address] Bacteria identified Cx Nom (Bld) NO GROWTH 5 DAYS PERFORMED BY: [place] [address] PATHOLOGIST MANAGER [employer] RENETTA MONACO M.D. Normal [facility] Comment on above: Performed By: #### C UU, ADDONUAPLUS #### [address] Calcium [Mass/volume] in Ser um or PlasmaOrdered By: Kary Boone on 04-22-2023 Calcium [Mass/Vol] 9.5 mg/dL Normal 8.6-10.3 [facility] Comment on above: Performed By: #### C UChelle, ADDONUAPLUS #### [address] Carbon dioxide, total [Moles /volume] in Serum or PlasmaOrdered By: Kary Boone on 04-22-2023 CO2 [Moles/Vol] 26.9 mmol/L Normal 21.0-31.0 [facility] Comment on above: Performed By: #### C UChelle, ADDONUAPLUS #### [place] [address] [place] Chloride [Moles/volume] in S jennifer or PlasmaOrdered By: Kary Boone on 04-22-2023 Chloride [Moles/Vol] 106 mmol/L Normal 98-107 [facility] Comment on above: Performed By: #### C UU, ADDONUAPLUS #### [address] Complete Blood Count Auto Di ffon 04-22-2023 Mean Corpuscular HGB Conc 33.0 g/dL Normal 32.5-35.6 [facility] Comment on above: Performed By: #### C UU, ADDONUAPLUS #### [address] Monocytes/100 WBC (Bld) 18.01 % Normal 0.00-20.00 T [facility] Comment on above: Performed By: #### C UU, ADDONUAPLUS #### [facility] [address] NRBC% 0.2 /100{WBC} Normal 0-0.[address] [facility] Comment on above: Performed By: #### C UU, ADDONUAPLUS #### [address] Creatinine [Mass/volume] in Serum or PlasmaOrdered By: Kary Boone on 04-22-2023 Creatinine [Mass/Vol] 0.66 mg/dL Low 0.70-1.30 [facility] Comment on above: Performed By: #### C UU, ADDONUAPLUS #### [address] Erythrocyte distribution wid th [Ratio] by Automated countOrdered By: Kary Boone on 04-22-2023 Erythrocyte distribution width (RBC) [Ratio] 14.8 % Normal 12.0-14.8 [facility] Comment on above: Performed By: #### C UU, ADDONUAPLUS #### [address] Erythrocytes [#/volume] in B lood by Automated countOrdered By: Kary Boone on 04-22-2023 RBC (Bld) [#/Vol] 4.26 10*6/uL Normal 3.90-5.60 [facility] Comment on above: Performed By: #### C UU, ADDONUAPLUS #### [address] Glucose [Mass/volume] in Ser um or PlasmaOrdered By: Kary Boone on 04-22-2023 Glucose [Mass/Vol] 115 mg/dL High 70-100 [facility] Comment on above: ADA recommended refe rence rangeRandom Glucose Reference Range is dependent on time and content of last meal. Glucose of more than 200 mg/dL in a nonstressed, ambulatory subject supports the diagnosis of Diabetes Mellitus. Result Comment: [place] om Glucose Reference Range is dependent on time and content of last meal. Glucose of more than 200 mg/dL in a nonstressed, ambulatory subject supports the diagnosis of Diabetes Mellitus. ADA recommended reference range Performed By: #### C UU, ADDONUAPLUS #### [facility] [address] [place] [address] Hematocrit [Volume Fraction] of Blood by Automated countOrdered By: Kary Boone on 04-22-2023 Hematocrit (Bld) [Volume fraction] 36.0 % Low 38.8-50.0 [facility] Comment on above: Performed By: #### C UU, ADDONUAPLUS #### [address] Hemoglobin [Mass/volume] in BloodOrdered By: Kary Boone on 04-22-2023 Hemoglobin (Bld) [Mass/Vol] 11.9 g/dL Low 13.0-17.0 [facility] Comment on above: Performed By: #### C UU, ADDONUAPLUS #### [address] Leukocytes [#/volume] correc mayte for nucleated erythrocytes in Blood by Automated counOrdered By: Kary Boone on 04-22-2023 WBC corrected for nucl RBC Auto (Bld) [#/Vol] 5.7 10*3/uL 4.1-10.5 [facility] Leukocytes [#/volume] in Blo od by Automated countOrdered By: Kary Boone on 04-22-2023 WBC (Bld) [#/Vol] 5.7 10*3/uL Normal 4.1-10.5 [facility] Comment on above: Performed By: #### C UU, ADDONUAPLUS #### [facility] [address] [place] [address] [place] Lymphocytes [#/volume] in Bl ood by Automated countOrdered By: Kary Boone on 04-22-2023 Lymphocytes (Bld) [#/Vol] 1.9 10*3/uL Normal 1.00-4.8 [facility] Comment on above: Performed By: #### C UU, ADDONUAPLUS #### [address] [place] [address] [place] Lymphocytes/100 leukocytes i n Blood by Automated countOrdered By: Kary Boone on 04-22-2023 Lymphocytes/100 WBC (Bld) 33.5 % Normal . [facility] Comment on above: Performed By: #### C UU, ADDONUAPLUS #### [address] MCH [Entitic mass] by Automa mayte countOrdered By: Kary Boone on 04-22-2023 MCH (RBC) [Entitic mass] 27.9 pg Normal 27.5-35.2 [facility] Comment on above: Performed By: #### C UU, ADDONUAPLUS #### [address] MCHC Auto (RBC) [Mass/Vol]Or dered By: Kary Boone on 04-22-2023 MCHC (RBC) [Mass/Vol] 33.0 g/dL 32.5-35.6 [facility] MCV [Entitic volume] by Auto mated countOrdered By: Kary Boone on 04-22-2023 MCV (RBC) [Entitic vol] 84.7 fL Normal 83.5-101 F [facility] Comment on above: Performed By: #### C UU, ADDONUAPLUS #### [address] Monocyte distribution width [Entitic volume] in Blood by AutomatedOrdered By: Kary Boone on 04-22-2023 Monocyte distribution width Auto (Bld) [Entitic vol] 18.01 % 0.00-20.00 [facility] Neutrophils [#/volume] in Bl ood by Automated countOrdered By: Kary Boone on 04-22-2023 Neutrophils (Bld) [#/Vol] 2.6 10*3/uL Normal 1.8-7.7 [facility] Comment on above: Performed By: #### C UU, ADDONUAPLUS #### [address] No Panel InformationOrdered By: Kary Boone on 04-22-2023 Estimated GFR (CKD-EPI) > 60.0 mL/Min [facility] Creatinine Clearance (Chem 87.50 [facility] Nucleated erythrocytes [Pres ence] in Blood by Automated countOrdered By: Kary Boone on 04-22-2023 Nucleated RBC Auto Ql (Bld) 0.2 /100{WBC} 0-0.5 [facility] Platelet mean volume [Entiti c volume] in Blood by Automated countOrdered By: Kary Boone on 04-22-2023 Platelet mean volume (Bld) [Entitic vol] 8.2 fL Normal 6.6-10.1 [facility] Comment on above: Performed By: #### C UU, ADDONUAPLUS #### [facility] [address] [place] [address] [place] Platelets [#/volume] in Bloo d by Automated countOrdered By: Kary Boone on 04-22-2023 Platelets (Bld) [#/Vol] 241 10*3/uL Normal 150-450 [facility] Comment on above: Performed By: #### C UU, ADDONUAPLUS #### [facility] [address] [place] [address] [place] Potassium [Moles/volume] in Serum or PlasmaOrdered By: Kary Boone on 04-22-2023 Potassium [Moles/Vol] 4.1 mmol/L Normal 3.5-5.1 [facility] Comment on above: Performed By: #### C UU, ADDONUAPLUS #### [facility] [address] [place] [address] [place] Serum or plasma anion gap de terminationOrdered By: Kary Boone on 04-22-2023 Anion gap [Moles/Vol] 10.2 mmol/L Normal 6.0-15.0 [facility] Comment on above: Performed By: #### C UU, ADDONUAPLUS #### [facility] [address] [place] [address] [place] Sodium [Moles/volume] in Ser um or PlasmaOrdered By: Kary Boone on 04-22-2023 Sodium [Moles/Vol] 139 mmol/L Normal 136-145 [facility] Comment on above: Performed By: #### C JUSTIN ROBLEDOUAPLUS #### [facility] [address] Superficial Wound Cultureon 04-22-2023 Superficial Wound Culture Light Normal Skin [place] 2 Days PERFORMED BY: [place] [address] PATHOLOGIST MANAGER [employer] RENETTA MONACO M.D. Normal [facility] Comment on above: Performed By: #### C USUP #### [facility] [address] Superficial Wound Culture ORGANISM: [place]ineto. crystal/nosocom grp MDRO (O:ACIBNMDRO) Quantity of Growth Moderate Growth ORGANISM: Enterococcus faecalis (VRE) (O:ENTFACVRE) Quantity of Growth Light Growth VRE Vancomycin Resistant Enterococcus ORGANISM: Proteus mirabilis (O:PROMIR) Quantity of Growth Moderate Growth Aerobic SCOTT Charge (NMIC56) ----- SUSCEPTIBILITY ---- ORGANISM: O:ACIBNMDRO ANTIBIOTIC INTERPRETATION SCOTT Amikacin S <16 Ampicillin/Sulbactam S 88/4 Cefepime S 8 Ceftazidime S 4 Ceftriaxone I 32 Gentamicin S 4 Meropenem R >8 Minocycline I 8 Tetracycline R >8 Tobramycin R >8 Trimethoprim/Sulfame thoxazole R >2 Aerobic SCOTT Charge (PCMIC38) ----- SUSCEPTIBILITY ---- ORGANISM: O:ENTFACVRE ANTIBIOTIC INTERPRETATION SCOTT Ampicillin S <2 Daptomycin S 1 Linezolid S <1 Vancomycin R >16 Aerobic SCOTT Charge (NMIC56) ----- SUSCEPTIBILITY ---- ORGANISM: O:PROMIR ANTIBIOTIC INTERPRETATION SCOTT Amikacin S <16 Amoxacillin/K Clavulanate S <8 Ampicillin S <8 Ampicillin/Sulbactam S <4 Aztreonam S <4 Cefazolin S <2 Cefepime S <2 Ceftazidime S <1 Ceftazidime/Avibacta m S <4 Ceftolozane/Tazobact am S <2 Ceftriaxone S <1 Cefuroxime S <4 Ciprofloxacin S <0.25 Ertapenem S <0.5 Gentamicin S <2 Levofloxacin S <0.5 Meropenem S <1 Meropenem/Vaborbacta m S <2 Piperacillin/Tazobac alas S <8 Tobramycin S <2 Trimethoprim/Sulfame thoxazole S <0.5 S = SUSCEPTIBLE I = INTERMEDIATE R [...] RESISTANT TO ALL B-LACTAM DRUGS. PERFORMED BY: [place] [address] PATHOLOGIST MANAGER [employer] RENETTA MONACO M.D. Normal [facility] Comment on above: Performed By: #### B MP, CBC #### [facility] [address] [place] [address] Urea nitrogen [Mass/volume] in Serum or PlasmaOrdered By: Kary Boone on 04-22-2023 Urea nitrogen [Mass/Vol] 14 mg/dL Normal 10-19 [facility] Comment on above: Performed By: #### C EDILSON ROBLEDOPLUS #### [facility] [address] [place] [address] XR hip RT min 2V(w/wo pelvis )*on 04-22-2023 XR hip RT min 2V(w/wo pelvis)* [facility] [place] [address] XRay Report Signed Patient: Fede Guerra Sr MR#: [id number] : 1955 Acct:[id number] Age/Sex: 68 / M ADM Date: 04/22/23 Loc: ER Room: Type: [facility] ER Attending Dr: Chris to: Kary Boone APRN Ordering Provider: Kary Boone APRN Date of Service: 04/22/23 XR/XR hip RT min 2V(w/wo pelvis)*: Extremity Injury, Lower XR hip RT min 2V(w/wo pelvis)* 04/22/2023 4:29 PM SIGNS AND SYMPTOMS: Open wound over right hip with drainage PROTOCOL: Frontal radiograph the pelvis with frontal and frog-leg views of the right hip COMPARISON: None FINDINGS: There is moderate narrowing of the right hip joint space with subchondral sclerosis of the acetabular roof. This is present to some extent on the left. There is no fracture or dislocation. No osteolytic or bony destructive process. Enthesophyte formation is noted along the iliac wings and at the ischial tuberosities. Radiodense foreign body fragments are noted over the left hip. XR/XR hip RT min 2V(w/wo pelvis)* IMPRESSION: No fracture or dislocation. Degenerative changes are noted in the hips. No osteolytic or bony destructive process. Impression dictated by: Erika Pitts M.D.04/22/2023 6:39 PM Dictation Location: [place] [address] Transcribed By: [facility] 04/22/231838 Dictated By: Erika Pitts II, MD 04/22/231835 Signed By: 04/22/231838 Normal [facility] ECG 12 lead ECGon 04-19-2023 ECG 12 lead ECG [facility] [place] [address] [place] [address] Electrocardiograph Report Signed Patient: Fede Guerra Sr MR#: [id number] : 1955 Acct:[id number] Age/Sex: 68 / M ADM Date: 04/15/23 Loc: Room: [address] [place] [address] Type: ADM IN Attending Dr: Kip Hunt MD Ordering Provider: Emily Benites APRN Date of Service: 04/19/23 ECG/ECG 12 lead ECG: Baseline Copies to: Test Reason : Blood Pressure : / mmHG Vent. Rate : 077 BPM Atrial Rate : 077 BPM P-R Int : 176 ms QRS Dur : 080 ms QT Int : 384 ms P-R-T Axes : 089 056 081 degrees QTc Int : 434 ms Poor data quality, interpretation may be adversely affected Normal sinus rhythm Normal ECG No previous ECGs available Confirmed by BA RUELAS MD ([id number]) on 04/19/2023 4:42:30 PM Referred By: Electronically Signed By:BA RUELAS MD Transcribed By: MUS Signed By Ba Ruelas MD 0 04/19/23 1642 Normal [facility] Dipstick and Microscopicon 0 04-15-2023 Appearance (U) Turbid Critically abnormal Clear [facility] Comment on above: Order Comment: Name Collection Type:: Hernandez Catheter Performed By: #### C UU, ADDONUAPLUS #### [facility] [address] [place] [address] [place] Bacteria,Urine 4+ High None Seen [facility] Comment on above: Order Comment: Name Collection Type:: Hernandez Catheter Performed By: #### C UU, ADDONUAPLUS #### [facility] [address] [place] [address] [place] Bilirubin,Urine Negative Normal Negative [facility] Comment on above: Order Comment: Name Collection Type:: Hernandez Catheter Performed By: #### C UU, ADDONUAPLUS #### [facility] [address] [place] [address] [place] Color (U) Yellow Normal Yellow [facility] Comment on above: Order Comment: Name Collection Type:: Hernandez Catheter Performed By: #### C UU, ADDONUAPLUS #### [facility] [address] [place] [address] [place] Glucose Ql (U) Normal Normal Normal [facility] Comment on above: Order Comment: Name Collection Type:: Hernandez Catheter Performed By: #### C UU, ADDONUAPLUS #### [facility] [address] [place] [address] [place] Hyaline Casts,Urine 0-8 Normal 0-8 [facility] Comment on above: Order Comment: Name Collection Type:: Hernandez Catheter Performed By: #### C UU, ADDONUAPLUS #### [address] Ketones Ql (U) Negative Normal Negative [facility] Comment on above: Order Comment: Name Collection Type:: Hernandez Catheter Performed By: #### C UU, ADDONUAPLUS #### [address] Leukocyte esterase Test strip Ql (U) 4+ High Negative [facility] Comment on above: Order Comment: Name Collection Type:: Hernandez Catheter Performed By: #### C UU, ADDONUAPLUS #### [place] [address] [place] Nitrite,Urine Positive High Negative [facility] Comment on above: Order Comment: Name Collection Type:: Hernandez Catheter Performed By: #### C UU, ADDONUAPLUS #### [place] [address] [place] Occult Blood,Urine Trace High Negative [facility] Comment on above: Order Comment: Name Collection Type:: Hernandez Catheter Result Comment: PERF ORMED BY: [address] [place] [address] PATHOLOGIST MANAGER [employer] RENETTA MONACO M.D. Performed By: #### C UU, ADDONUAPLUS #### [place] [address] [place] pH (U) 8.0 [pH] Normal 5.0-9.0 [facility] Comment on above: Order Comment: Name Collection Type:: Hernandez Catheter Performed By: #### C UU, ADDONUAPLUS #### [place] [address] [place] Protein (U) [Mass/Vol] 30 mg/dL High Negative [facility] Comment on above: Order Comment: Name Collection Type:: Hernandez Catheter Performed By: #### C UU, ADDONUAPLUS #### [address] RBC,Urine 5-9 High 0-4 [facility] Comment on above: Order Comment: Name Collection Type:: Hernandez Catheter Performed By: #### C UU, ADDONUAPLUS #### [address] Specificy [place],Urine 1.018 Normal 1.001-1.030 [facility] Comment on above: Order Comment: Name Collection Type:: Hernandez Catheter Performed By: #### C UU, ADDONUAPLUS #### [address] Squamous Epithelial Cell,Urine 0-1 Normal 0-2 [facility] Comment on above: Order Comment: Name Collection Type:: Hernandez Catheter Performed By: #### C UU, ADDONUAPLUS #### [address] Urobilinogen,Urine Normal Normal Normal [facility] Comment on above: Order Comment: Name Collection Type:: Hernandez Catheter Performed By: #### C UU, ADDONUAPLUS #### [address] WBC,Urine Innumerable High 0-4 [facility] Comment on above: Order Comment: Name Collection Type:: Hernandez Catheter Performed By: #### C UU, ADDONUAPLUS #### [place] [address] [place] Yeast,Urine None Seen Normal None Seen [facility] Comment on above: Order Comment: Name Collection Type:: Hernandez Catheter Result Comment: PERF ORMED BY: [place] [address] PATHOLOGIST MANAGER [employer] RENETTA MONACO M.D. Performed By: #### C UU, ADDONUAPLUS #### [address] Urine Cultureon 04-15-2023 Bacteria identified Cx Nom (U) ORGANISM: Klebsiella pneumoniae (ESBL) (O:KERRI) [place] Count >100,000 Aerobic SCOTT Charge (NMIC56) ----- SUSCEPTIBILITY ---- ORGANISM: O:KLEPNEESBL ANTIBIOTIC INTERPRETATION SCOTT Amikacin S <16 Amoxacillin/K Clavulanate I 1616/8 Ampicillin/Sulbactam R >16 Aztreonam ESBL >16 Cefazolin R* >16 Cefepime R* >16 Ceftazidime ESBL 16 Ceftazidime/Avibacta m S <4 Ceftolozane/Tazobact am S <2 Ceftriaxone ESBL >32 Cefuroxime R* >16 Ciprofloxacin R >2 Ertapenem S <0.5 Gentamicin R >8 Levofloxacin S <0.5 Meropenem S <1 Meropenem/Vaborbacta m S <2 Nitrofurantoin I 64 Piperacillin/Tazobac alas I 32 Tetracycline R >8 Tigecycline S <2 Tobramycin [...] RESISTANT TO ALL B-LACTAM DRUGS. PERFORMED BY: [place] [address] PATHOLOGIST MANAGER [employer] RENETTA MONACO M.D. Normal [facility] Comment on above: Performed By: #### C BC, BMP #### [address] Basic Metabolic Panelon 12-2 Creatinine Clr Calc Pharmacy 55.23 Normal [facility] Comment on above: Result Comment: PERF ORMED BY: [address] [place] [address] PATHOLOGIST MANAGER [employer] RENETTA MONACO M.D. Performed By: #### B MP, CBC #### [place] [address] [place] GFR/1.73 sq M.predicted MDRD (S/P/Bld) [Vol rate/Area] mL/min/{1.73_m2} Normal [facility] Comment on above: Performed By: #### B MP, CBC #### [place] [address] [place] Calcium [Mass/volume] in Ser um or PlasmaOrdered By: Zeinab Rebeccaskiene on 03-20-2023 Calcium [Mass/Vol] 8.2 mg/dL Low 8.6-10.3 [facility] Comment on above: Performed By: #### B MP, CBC #### [place] [address] [place] Carbon dioxide, total [Moles /volume] in Serum or PlasmaOrdered By: Zeinab Angeloe on 03-20-2023 CO2 [Moles/Vol] 25.6 mmol/L Normal 21.0-31.0 [facility] Comment on above: Performed By: #### B MP, CBC #### [place] [address] [place] Chloride [Moles/volume] in S jennifer or PlasmaOrdered By: Zeinab Rebeccaskmelle on 03-20-2023 Chloride [Moles/Vol] 109 mmol/L High 98-107 [facility] Comment on above: Performed By: #### B MP, CBC #### [place] [address] [place] Creatinine [Mass/volume] in Serum or PlasmaOrdered By: Zeinab Semaskiene on 03-20-2023 Creatinine [Mass/Vol] 1.28 mg/dL Normal 0.70-1.30 [facility] Comment on above: Performed By: #### B MP, CBC #### [place] [address] [place] Glucose [Mass/volume] in Ser um or PlasmaOrdered By: Zeinab Poole on 03-20-2023 Glucose [Mass/Vol] 97 mg/dL Normal 70-100 [facility] Comment on above: ADA recommended refe rence rangeRandom Glucose Reference Range is dependent on time and content of last meal. Glucose of more than 200 mg/dL in a nonstressed, ambulatory subject supports the diagnosis of Diabetes Mellitus. Result Comment: [place] om Glucose Reference Range is dependent on time and content of last meal. Glucose of more than 200 mg/dL in a nonstressed, ambulatory subject supports the diagnosis of Diabetes Mellitus. ADA recommended reference range Performed By: #### B MP, CBC #### [facility] [address] No Panel InformationOrdered By: Zeinab Poole on 03-20-2023 Estimated GFR (CKD-EPI) > 60.0 mL/Min [facility] Creatinine Clearance (Chem 55.23 [facility] Potassium [Moles/volume] in Serum or PlasmaOrdered By: Zeinab Poole on 03-20-2023 Potassium [Moles/Vol] 3.9 mmol/L Normal 3.5-5.1 [facility] Comment on above: Performed By: #### B MP, CBC #### [facility] [address] Serum or plasma anion gap de terminationOrdered By: Zeinab Poole on 03-20-2023 Anion gap [Moles/Vol] 7.3 mmol/L Normal 6.0-15.0 [facility] Comment on above: Performed By: #### B MP, CBC #### [facility] [address] [place] [address] [place] Sodium [Moles/volume] in Ser um or PlasmaOrdered By: Zeinab Poole on 03-20-2023 Sodium [Moles/Vol] 138 mmol/L Normal 136-145 [facility] Comment on above: Performed By: #### B MP, CBC #### [facility] [address] [place] [address] [place] Urea nitrogen [Mass/volume] in Serum or PlasmaOrdered By: Zeinab Poole on 03-20-2023 Urea nitrogen [Mass/Vol] 29 mg/dL High 7-25 [facility] Comment on above: Performed By: #### B MP, CBC #### [facility] [address] Anisocytosis [Presence] in B lood by Light microscopyOrdered By: Zeinab Poole on 03-19-2023 Anisocytosis Ql (Bld) Slight Normal [facility] Comment on above: Performed By: #### C UU, ADDONUAPLUS #### [address] Basic Metabolic Panelon 02-26 Anion gap [Moles/Vol] 9.4 mmol/L Normal 6.0-15.0 [facility] Comment on above: Performed By: #### C UU, ADDONUAPLUS #### [address] Calcium [Mass/Vol] 8.3 mg/dL Low 8.6-10.3 [facility] Comment on above: Performed By: #### C UU, ADDONUAPLUS #### [address] Chloride [Moles/Vol] 112 mmol/L High 98-107 [facility] Comment on above: Performed By: #### C UU, ADDONUAPLUS #### [address] CO2 [Moles/Vol] 23.6 mmol/L Normal 21.0-31.0 [facility] Comment on above: Performed By: #### C UU, ADDONUAPLUS #### [place] [address] [place] Creatinine [Mass/Vol] 1.48 mg/dL High 0.70-1.30 [facility] Comment on above: Performed By: #### C UU, ADDONUAPLUS #### [place] [address] [place] Creatinine Clr Calc Pharmacy 47.77 Normal [facility] Comment on above: Result Comment: PERF ORMED BY: [place] [address] PATHOLOGIST MANAGER [employer] RENETTA MONACO M.D. Performed By: #### C UU, ADDONUAPLUS #### [place] [address] [place] GFR/1.73 sq M.predicted MDRD (S/P/Bld) [Vol rate/Area] 51.215 mL/min/{1.73_m2} Normal [facility] Comment on above: Performed By: #### C UU, ADDONUAPLUS #### [address] Glucose [Mass/Vol] 84 mg/dL Normal 70-100 [facility] Comment on above: Result Comment: [place] Glucose Reference Range is dependent on time and content of last meal. Glucose of more than 200 mg/dL in a nonstressed, ambulatory subject supports the diagnosis of Diabetes Mellitus. ADA recommended reference range Performed By: #### C UU, ADDONUAPLUS #### [place] [address] [place] Potassium [Moles/Vol] 4.0 mmol/L Normal 3.5-5.1 [facility] Comment on above: Performed By: #### C UU, ADDONUAPLUS #### [place] [address] [place] Sodium [Moles/Vol] 141 mmol/L Normal 136-145 [facility] Comment on above: Performed By: #### C UU, ADDONUAPLUS #### [place] [address] [place] Urea nitrogen [Mass/Vol] 37 mg/dL High 7-25 [facility] Comment on above: Performed By: #### C UU, ADDONUAPLUS #### [place] [address] [place] Basophils Auto (Bld) [#/Vol] Ordered By: Zeinab Poole on 03-19-2023 Basophils (Bld) [#/Vol] N/A F [facility] Basophils/100 WBC Auto (Bld) Ordered By: Zeinab Poole on 03-19-2023 Basophils/100 WBC (Bld) N/A F [facility] Ney cells [Presence] in Blo od by Light microscopyOrdered By: Zeinab Poole on 03-19-2023 Ney cells LM Ql (Bld) Slight [facility] and CBCon 03-19-2023 Crenated RBC Slight Normal [facility] Comment on above: Performed By: #### C UU, ADDONUAPLUS #### [address] Giant Platelet Tally 1 /100{WBC} Normal [facility] Comment on above: Performed By: #### C UU, ADDONUAPLUS #### [address] Large Platelets Slight Normal [facility] Comment on above: Result Comment: PERF ORMED BY: [place] [address] PATHOLOGIST MANAGER [employer] RENETTA MONACO M.D. Performed By: #### C UU, ADDONUAPLUS #### [address] Macrocytosis Slight Normal [facility] Comment on above: Performed By: #### C UU, ADDONUAPLUS #### [address] Mean Corpuscular HGB Conc 33.4 g/dL Normal 32.5-35.6 [facility] Comment on above: Performed By: #### C UU, ADDONUAPLUS #### [address] Microcytosis Slight Normal [facility] Comment on above: Performed By: #### C UU, ADDONUAPLUS #### [address] Ovalocytes Slight Normal [facility] Comment on above: Performed By: #### C UU, ADDONUAPLUS #### [facility] [address] [place] [address] Platelet Estimate Decreased Normal Normal [facility] Comment on above: Performed By: #### C UU, ADDONUAPLUS #### [facility] [address] [place] [address] Platelet Morphology Normal Normal Normal [facility] Comment on above: Performed By: #### C UU, ADDONUAPLUS #### [address] Poikilocytosis Slight Normal [facility] Comment on above: Performed By: #### C UU, ADDONUAPLUS #### [address] Target Cells Slight Normal [facility] Comment on above: Performed By: #### C UU, ADDONUAPLUS #### [facility] [address] [place] [address] Eosinophils Auto (Bld) [#/Vo l]Ordered By: Zeinab Poole on 03-19-2023 Eosinophils (Bld) [#/Vol] N/A [facility] Eosinophils/100 WBC Auto (Bl d)Ordered By: Zeinab Poole on 03-19-2023 Eosinophils/100 WBC (Bld) N/A [facility] Eosinophils/100 leukocytes i n Blood by Manual countOrdered By: Zeinab Poole on 03-19-2023 Eosinophils/100 WBC (Bld) 3 % Normal 1-3 [facility] Comment on above: Performed By: #### C UU, ADDONUAPLUS #### [facility] [address] [place] [address] [place] Erythrocyte distribution wid th [Ratio] by Automated countOrdered By: Zeinab Poole on 03-19-2023 Erythrocyte distribution width (RBC) [Ratio] 15.5 % High 12.0-14.8 [facility] Comment on above: Performed By: #### C UU, ADDONUAPLUS #### [facility] [address] [place] [address] [place] Erythrocytes [#/volume] in B lood by Automated countOrdered By: Zeinab Poole on 03-19-2023 RBC (Bld) [#/Vol] 3.71 10*6/uL Low 3.90-5.60 [facility] Comment on above: Performed By: #### C UChelle, ADDONUAPLUS #### [facility] [address] [place] [address] [place] Giant platelets/100 leukocyt es [Ratio] in Blood by Manual countOrdered By: Zeinab Poole on 03-19-2023 Giant platelets/100 WBC Manual cnt (Bld) [Ratio] 1 /100{WBC} [facility] Hematocrit [Volume Fraction] of Blood by Automated countOrdered By: Zeinab Poole on 03-19-2023 Hematocrit (Bld) [Volume fraction] 31.0 % Low 38.8-50.0 [facility] Comment on above: Performed By: #### C UChelle, ADDONUAPLUS #### [facility] [address] [place] [address] Hemoglobin [Mass/volume] in BloodOrdered By: Zeinab Poole on 03-19-2023 Hemoglobin (Bld) [Mass/Vol] 10.4 g/dL Low 13.0-17.0 [facility] Comment on above: Performed By: #### C UChelle, ADDONUAPLUS #### [facility] [address] [place] [address] Leukocytes [#/volume] correc mayte for nucleated erythrocytes in Blood by Automated counOrdered By: Zeinab Poole on 03-19-2023 WBC corrected for nucl RBC Auto (Bld) [#/Vol] 9.4 10*3/uL 4.1-10.5 [facility] Leukocytes [#/volume] in Blo od by Automated countOrdered By: Zeinab Poole on 03-19-2023 WBC (Bld) [#/Vol] 9.4 10*3/uL Normal 4.1-10.5 [facility] Comment on above: Performed By: #### C GUSTAVO ROBLEDOONUAPLUS #### [facility] [address] [place] [address] Lymphocytes Auto (Bld) [#/Vo l]Ordered By: Zeinab Poole on 03-19-2023 Lymphocytes (Bld) [#/Vol] N/A [facility] Lymphocytes/100 WBC Auto (Bl d)Ordered By: Zeinab Stpehense on 03-19-2023 Lymphocytes/100 WBC (Bld) N/A [facility] Lymphocytes/100 leukocytes i n Blood by Manual countOrdered By: Zeinab Poole on 03-19-2023 Lymphocytes/100 WBC (Bld) 14 % Low 18-42 [facility] Comment on above: Performed By: #### C UU, ADDONUAPLUS #### [address] MCH [Entitic mass] by Automa mayte countOrdered By: Zeinab Poole on 03-19-2023 MCH (RBC) [Entitic mass] 27.9 pg Normal 27.5-35.2 [facility] Comment on above: Performed By: #### C UU, ADDONUAPLUS #### [facility] [address] [place] [address] MCHC Auto (RBC) [Mass/Vol]Or dered By: Zeinab Poole on 03-19-2023 MCHC (RBC) [Mass/Vol] 33.4 g/dL 32.5-35.6 [facility] MCV [Entitic volume] by Auto mated countOrdered By: Zeinab Poole on 03-19-2023 MCV (RBC) [Entitic vol] 83.7 fL Normal 83.5-101 F [facility] Comment on above: Performed By: #### C UU, ADDONUAPLUS #### [address] Macrocytes LM Ql (Bld)Ordere d By: Zeinab Poole on 03-19-2023 Macrocytes Ql (Bld) Slight [facility] Manual blood segmented neutr ophils/100 leukocytesOrdered By: Zeinab Stephense on 03-19-2023 Segmented neutrophils/100 WBC (Bld) 74 % High 50-70 [facility] Comment on above: Performed By: #### C UU, ADDONUAPLUS #### [facility] [address] [place] [address] [place] Microcytes LM Ql (Bld)Ordere d By: Zeinab Rebeccaskiene on 03-19-2023 Microcytes Ql (Bld) Slight [facility] Monocytes Auto (Bld) [#/Vol] Ordered By: Zeinab Semaskiene on 03-19-2023 Monocytes (Bld) [#/Vol] N/A F [facility] Monocytes/100 WBC Auto (Bld) Ordered By: Zeinab Semaskiene on 03-19-2023 Monocytes/100 WBC (Bld) N/A F [facility] Monocytes/100 leukocytes in Blood by Manual countOrdered By: Zeinab Rebeccaskiene on 03-19-2023 Monocytes/100 WBC (Bld) 8 % Normal 2-11 F [facility] Comment on above: Performed By: #### C UU, ADDONUAPLUS #### [facility] [address] [place] [address] Neutrophils Auto (Bld) [#/Vo l]Ordered By: Zeinab Semaskiene on 03-19-2023 Neutrophils (Bld) [#/Vol] N/A [facility] Neutrophils/100 WBC Auto (Bl d)Ordered By: Zeinab Semaskiene on 03-19-2023 Neutrophils/100 WBC (Bld) N/A [facility] Nucleated erythrocytes [Pres ence] in Blood by Automated countOrdered By: Zeinab Semaskiene on 03-19-2023 Nucleated RBC Auto Ql (Bld) N/A [facility] Ovalocyte detectionOrdered B y: Zeinab Semaskiene on 03-19-2023 Ovalocytes LM Ql (Bld) Slight Fi [facility] Peripheral white blood cell differential % bands, microscopic examOrdered By: Zeinab Rebeccaskiene on 03-19-2023 Band form neutrophils/100 WBC (Bld) 1 % Normal 0-5 [facility] Comment on above: Performed By: #### C UU, ADDONUAPLUS #### [facility] [address] [place] [address] [place] Platelet adequacy [Presence] in Blood by Light microscopyOrdered By: Zeinab Poole on 03-19-2023 Platelets LM Ql (Bld) Decreased Normal [facility] Platelet mean volume [Entiti c volume] in Blood by Automated countOrdered By: Zeinab Poole on 03-19-2023 Platelet mean volume (Bld) [Entitic vol] 8.6 fL Normal 6.6-10.1 [facility] Comment on above: Performed By: #### C UU, ADDONUAPLUS #### [facility] [address] [place] [address] Platelet morphology finding [Identifier] in BloodOrdered By: Zeinab Poole on 03-19-2023 Platelet morphology finding Nom (Bld) Normal Normal [facility] Platelets Large [Presence] i n Blood by Light microscopyOrdered By: Zeinab Poole on 03-19-2023 Platelets Large LM Ql (Bld) Slight [facility] Platelets [#/volume] in Bloo d by Automated countOrdered By: Zeinab Poole on 03-19-2023 Platelets (Bld) [#/Vol] 101 10*3/uL Low 150-450 [facility] Comment on above: Performed By: #### C UU, ADDONUAPLUS #### [facility] [address] [place] [address] Poikilocytosis [Presence] in Blood by Light microscopyOrdered By: Zeinab Poole on 03-19-2023 Poikilocytosis LM Ql (Bld) Slight [facility] RBC morphologyOrdered By: Casper Poole on 03-19-2023 RBC morphology finding Nom (Bld) N/A [facility] Target cellsOrdered By: Zeinab Poole on 03-19-2023 Target cells LM Ql (Bld) Slight [facility] XR abdomen min 2Von 03-19-20 XR abdomen min 2V [facility] [address] [place] [address] XRay Report Signed Patient: Fede Guerra SR MR#: [id number] : 1955 Acct:[id number] Age/Sex: 68 / M ADM Date: 03/15/23 Loc: Room: [address] [place] [address] Type: ADM IN Attending Dr: Zeinab Poole [...] Christie Durán M.D.03/19/2023 3:41 PM Dictation Location: [place] [address] Transcribed By: [facility] 03/19/23 1541 Dictated By: Christie Durán MD 03/19/23 1538 Signed By: 03/19/23 1541 Normal [facility] Basic Metabolic Panelon 02-26 Anion gap [Moles/Vol] 8.5 mmol/L Normal 6.0-15.0 [facility] Comment on above: Performed By: #### C EDILSON ROBLEDOPLUS #### [place] [id number] [facility] Calcium [Mass/Vol] 8.1 mg/dL Low 8.6-10.3 [facility] Comment on above: Performed By: #### C UU, ADDONUAPLUS #### [address] Chloride [Moles/Vol] 114 mmol/L High 98-107 [facility] Comment on above: Performed By: #### C UU, ADDONUAPLUS #### [address] CO2 [Moles/Vol] 22.7 mmol/L Normal 21.0-31.0 [facility] Comment on above: Performed By: #### C UU, ADDONUAPLUS #### [address] Creatinine [Mass/Vol] 1.86 mg/dL Significan t change up 0.70-1.30 [facility] Comment on above: Performed By: #### C UU, ADDONUAPLUS #### [address] Creatinine Clr Calc Pharmacy 38.01 Normal [facility] Comment on above: Result Comment: PERF ORMED BY: [place] [address] PATHOLOGIST MANAGER [employer] RENETTA MONACO M.D. Performed By: #### C UU, ADDONUAPLUS #### [address] GFR/1.73 sq M.predicted MDRD (S/P/Bld) [Vol rate/Area] 38.931 mL/min/{1.73_m2} Normal [facility] Comment on above: Performed By: #### C UU, ADDONUAPLUS #### [address] Glucose [Mass/Vol] 82 mg/dL Normal 70-100 [facility] Comment on above: Result Comment: [place] Glucose Reference Range is dependent on time and content of last meal. Glucose of more than 200 mg/dL in a nonstressed, ambulatory subject supports the diagnosis of Diabetes Mellitus. ADA recommended reference range Performed By: #### C UU, ADDONUAPLUS #### [place] [address] [place] Potassium [Moles/Vol] 4.2 mmol/L Normal 3.5-5.1 [facility] Comment on above: Performed By: #### C UU, ADDONUAPLUS #### [address] Sodium [Moles/Vol] 141 mmol/L Normal 136-145 [facility] Comment on above: Performed By: #### C UU, ADDONUAPLUS #### [address] Urea nitrogen [Mass/Vol] 47 mg/dL High 7-25 [facility] Comment on above: Performed By: #### C UU, ADDONUAPLUS #### [address] Dohle bodies detectionOrdere d By: Zeinab Poole on 03-18-2023 Dohle body LM Ql (Bld) Slight [facility] Scan and CBCon 03-18-2023 Anisocytosis Ql (Bld) Slight Normal [facility] Comment on above: Performed By: #### C UU, ADDONUAPLUS #### [place] [address] [place] Basophils (Bld) [#/Vol] 0.1 10*3/uL Normal 0.0-0.2 [facility] Comment on above: Performed By: #### C UU, ADDONUAPLUS #### [place] [address] [place] Basophils/100 WBC (Bld) 0.5 % Normal . T [facility] Comment on above: Performed By: #### C UU, ADDONUAPLUS #### [address] Dohle Bodies Slight Normal [facility] Comment on above: Performed By: #### C UU, ADDONUAPLUS #### [address] Eosinophils (Bld) [#/Vol] 0.2 10*3/uL Normal 0.0-0.45 [facility] Comment on above: Performed By: #### C UU, ADDONUAPLUS #### [address] Eosinophils/100 WBC (Bld) 1.4 % Normal . [facility] Comment on above: Performed By: #### C UU, ADDONUAPLUS #### [address] Erythrocyte distribution width (RBC) [Ratio] 15.6 % High 12.0-14.8 [facility] Comment on above: Performed By: #### C UU, ADDONUAPLUS #### [address] Hematocrit (Bld) [Volume fraction] 30.9 % Low 38.8-50.0 [facility] Comment on above: Performed By: #### C UU, ADDONUAPLUS #### [address] Hemoglobin (Bld) [Mass/Vol] 10.1 g/dL Low 13.0-17.0 [facility] Comment on above: Performed By: #### C UU, ADDONUAPLUS #### [address] Lymphocytes (Bld) [#/Vol] 1.1 10*3/uL Normal 1.00-4.8 [facility] Comment on above: Performed By: #### C UU, ADDONUAPLUS #### [address] Lymphocytes/100 WBC (Bld) 6.4 % Normal . [facility] Comment on above: Performed By: #### C UU, ADDONUAPLUS #### [address] MCH (RBC) [Entitic mass] 27.6 pg Normal 27.5-35.2 [facility] Comment on above: Performed By: #### C UU, ADDONUAPLUS #### [address] [place] [address] [place] MCV (RBC) [Entitic vol] 84.3 fL Normal 83.5-101 [facility] Comment on above: Performed By: #### C UChelle, ADDONUAPLUS #### [address] Mean Corpuscular HGB Conc 32.7 g/dL Normal 32.5-35.6 [facility] Comment on above: Performed By: #### C UU, ADDONUAPLUS #### [address] Microcytosis Slight Normal [facility] Comment on above: Performed By: #### C UChelle, ADDONUAPLUS #### [address] Monocytes (Bld) [#/Vol] 0.7 10*3/uL Normal 0.0-0.8 [facility] Comment on above: Performed By: #### C UChelle, ADDONUAPLUS #### [address] Monocytes/100 WBC (Bld) 4.2 % Normal . [facility] Comment on above: Performed By: #### C UChelle ADDONUAPLUS #### [address] Neutrophils (Bld) [#/Vol] 14.6 10*3/uL High 1.8-7.7 [facility] Comment on above: Performed By: #### C UU, ADDONUAPLUS #### [place] [address] [place] Neutrophils/100 WBC (Bld) 87.5 % Normal . [facility] Comment on above: Performed By: #### C UU, ADDONUAPLUS #### [address] NRBC% 0.1 /100{WBC} Normal 0-0.[address] [facility] Comment on above: Performed By: #### C UU, ADDONUAPLUS #### [address] Platelet Estimate Decreased Normal Normal [facility] Comment on above: Performed By: #### C UU, ADDONUAPLUS #### [address] Platelet mean volume (Bld) [Entitic vol] 8.9 fL Normal 6.6-10.1 [facility] Comment on above: Performed By: #### C UU, ADDONUAPLUS #### [address] Platelet Morphology Normal Normal Normal [facility] Comment on above: Result Comment: PERF ORMED BY: [place] [address] PATHOLOGIST MANAGER [employer] RENETTA MONACO M.D. Performed By: #### C UU, ADDONUAPLUS #### [address] Platelets (Bld) [#/Vol] 105 10*3/uL Low 150-450 [facility] Comment on above: Performed By: #### C UU, ADDONUAPLUS #### [address] RBC (Bld) [#/Vol] 3.66 10*6/uL Low 3.90-5.60 [facility] Comment on above: Performed By: #### C UU, ADDONUAPLUS #### [address] WBC (Bld) [#/Vol] 16.6 10*3/uL High 4.1-10.5 [facility] Comment on above: Performed By: #### C UU, ADDONUAPLUS #### [address] Basic Metabolic Panelon 12-2 Anion gap [Moles/Vol] 10.4 mmol/L Normal 6.0-15.[address] [facility] Comment on above: Performed By: #### C UU, ADDONUAPLUS #### [address] Calcium [Mass/Vol] 7.9 mg/dL Low 8.6-10.3 [facility] Comment on above: Performed By: #### C UU, ADDONUAPLUS #### [address] Chloride [Moles/Vol] 114 mmol/L High 98-107 [facility] Comment on above: Performed By: #### C UU, ADDONUAPLUS #### [address] CO2 [Moles/Vol] 21.0 mmol/L Normal 21.0-31.0 [facility] Comment on above: Performed By: #### C UU, ADDONUAPLUS #### [address] Creatinine [Mass/Vol] 2.41 mg/dL Significan t change up 0.70-1.30 [facility] Comment on above: Performed By: #### C UU, ADDONUAPLUS #### [place] [address] [place] Creatinine Clr Calc Pharmacy 29.34 Normal [facility] Comment on above: Result Comment: PERF ORMED BY: [place] [address] PATHOLOGIST MANAGER [employer] RENETTA MONACO M.D. Performed By: #### C UU, ADDONUAPLUS #### [place] [address] [place] GFR/1.73 sq M.predicted MDRD (S/P/Bld) [Vol rate/Area] 28.529 mL/min/{1.73_m2} Normal [facility] Comment on above: Performed By: #### C UU, ADDONUAPLUS #### [address] Glucose [Mass/Vol] 71 mg/dL Normal 70-100 [facility] Comment on above: Result Comment: [place] Glucose Reference Range is dependent on time and content of last meal. Glucose of more than 200 mg/dL in a nonstressed, ambulatory subject supports the diagnosis of Diabetes Mellitus. ADA recommended reference range Performed By: #### C MEENA ADDONUAPLUS #### [address] Potassium [Moles/Vol] 4.4 mmol/L Normal 3.5-5.1 [facility] Comment on above: Performed By: #### C UChelle ADDONUAPLUS #### [address] Sodium [Moles/Vol] 141 mmol/L Normal 136-145 [facility] Comment on above: Performed By: #### C UChelle ADDONUAPLUS #### [address] Urea nitrogen [Mass/Vol] 48 mg/dL High 7-25 [facility] Comment on above: Performed By: #### C UChelle ADDONUAPLUS #### [address] Scan and CBCon 03-17-2023 Anisocytosis Ql (Bld) Slight Normal [facility] Comment on above: Performed By: #### C UChelle ADDONUAPLUS #### [place] [address] [place] Basophils (Bld) [#/Vol] 0.1 10*3/uL Normal 0.0-0.2 [facility] Comment on above: Performed By: #### C UU ADDONUAPLUS #### [place] [address] [place] Basophils/100 WBC (Bld) 0.7 % Normal . T l[facility] Comment on above: Performed By: #### C UU ADDONUAPLUS #### [address] Dohle Bodies Moderate Normal [facility] Comment on above: Performed By: #### C UU ADDONUAPLUS #### [place] [id number] [place] Eosinophils (Bld) [#/Vol] 0.3 10*3/uL Normal 0.0-0.45 [facility] Comment on above: Performed By: #### C UU, ADDONUAPLUS #### [address] Eosinophils/100 WBC (Bld) 1.5 % Normal . [facility] Comment on above: Performed By: #### C UU, ADDONUAPLUS #### [address] Erythrocyte distribution width (RBC) [Ratio] 16.0 % High 12.0-14.8 [facility] Comment on above: Performed By: #### C UU, ADDONUAPLUS #### [address] Hematocrit (Bld) [Volume fraction] 30.0 % Low 38.8-50.0 [facility] Comment on above: Performed By: #### C UChelle, ADDONUAPLUS #### [address] Hemoglobin (Bld) [Mass/Vol] 9.9 g/dL Low 13.0-17.0 [facility] Comment on above: Performed By: #### C UU, ADDONUAPLUS #### [address] Lymphocytes (Bld) [#/Vol] 1.1 10*3/uL Normal 1.00-4.8 [facility] Comment on above: Performed By: #### C UU, ADDONUAPLUS #### [address] Lymphocytes/100 WBC (Bld) 6.0 % Normal . [facility] Comment on above: Performed By: #### C UU, ADDONUAPLUS #### [address] MCH (RBC) [Entitic mass] 28.0 pg Normal 27.5-35.2 [facility] Comment on above: Performed By: #### C UU, ADDONUAPLUS #### [facility] [address] MCV (RBC) [Entitic vol] 84.7 fL Normal 83.5-101 [facility] Comment on above: Performed By: #### C UU, ADDONUAPLUS #### [address] Mean Corpuscular HGB Conc 33.1 g/dL Normal 32.5-35.6 [facility] Comment on above: Performed By: #### C UU, ADDONUAPLUS #### [address] Microcytosis Slight Normal [facility] Comment on above: Performed By: #### C UU, ADDONUAPLUS #### [address] Monocytes (Bld) [#/Vol] 1.0 10*3/uL High 0.0-0.8 [facility] Comment on above: Performed By: #### C UU, ADDONUAPLUS #### [place] [address] [place] Monocytes/100 WBC (Bld) 5.3 % Normal . [facility] Comment on above: Performed By: #### C UU, ADDONUAPLUS #### [place] [address] [place] Neutrophils (Bld) [#/Vol] 15.8 10*3/uL High 1.8-7.7 [facility] Comment on above: Performed By: #### C UU, ADDONUAPLUS #### [place] [address] [place] Neutrophils/100 WBC (Bld) 86.5 % Normal . [facility] Comment on above: Performed By: #### C UU, ADDONUAPLUS #### [place] [address] [place] NRBC% 0.0 /100{WBC} Normal 0-0.[address] [facility] Comment on above: Performed By: #### C UU, ADDONUAPLUS #### [address] Platelet Estimate Decreased Normal Normal [facility] Comment on above: Performed By: #### C UU, ADDONUAPLUS #### [address] Platelet mean volume (Bld) [Entitic vol] 8.9 fL Normal 6.6-10.1 [facility] Comment on above: Performed By: #### C UU, ADDONUAPLUS #### [address] Platelet Morphology Normal Normal Normal [facility] Comment on above: Result Comment: PERF ORMED BY: [place] [address] PATHOLOGIST MANAGER [employer] RENETTA MONACO M.D. Performed By: #### C UU, ADDONUAPLUS #### [address] Platelets (Bld) [#/Vol] 105 10*3/uL Low 150-450 [facility] Comment on above: Performed By: #### C UU, ADDONUAPLUS #### [address] RBC (Bld) [#/Vol] 3.54 10*6/uL Low 3.90-5.60 [facility] Comment on above: Performed By: #### C UU, ADDONUAPLUS #### [address] Toxic Vacuolation Moderate Normal [facility] Comment on above: Performed By: #### C UU, ADDONUAPLUS #### [address] WBC (Bld) [#/Vol] 18.3 10*3/uL High 4.1-10.5 [facility] Comment on above: Performed By: #### C UU, ADDONUAPLUS #### [facility] [address] [place] [address] Toxic leukocyte vacuolation detectionOrdered By: Zeinab Poole on 03-17-2023 Leukocyte toxic vacuoles LM Ql (Bld) Moderate [facility] Alanine aminotransferase [En zymatic activity/volume] in Serum or PlasmaOrdered By: Gilbert Lockwood on 2023 ALT [Catalytic activity/Vol] 76 U/L High 7-52 [facility] Comment on above: Performed By: #### C UU, ADDONUAPLUS #### [facility] [address] [place] [address] Albumin [Mass/volume] in Ser um or Plasma by Bromocresol green (BCG) dye binding methoOrdered By: Gilbert Lockwood on 2023 Albumin BCG dye [Mass/Vol] 3.1 g/dL 3.5-5.7 [facility] Alkaline phosphatase [Enzyma tic activity/volume] in Serum or PlasmaOrdered By: Gilbert Lockwood on 2023 ALP [Catalytic activity/Vol] 49 U/L Normal 34-104 [facility] Comment on above: Performed By: #### C UU, ADDONUAPLUS #### [facility] [address] [place] [address] Aspartate aminotransferase [ Enzymatic activity/volume] in Serum or PlasmaOrdered By: Gilbert Lockwood on 2023 AST [Catalytic activity/Vol] 209 U/L High 13-39 [facility] Comment on above: Performed By: #### C UU, ADDONUAPLUS #### [facility] [address] [place] [address] Bilirubin.total [Mass/volume ] in Serum or PlasmaOrdered By: Gilbert Lockwood on 2023 Bilirubin [Mass/Vol] 0.9 mg/dL Normal 0.3-1.0 [facility] Comment on above: Performed By: #### C UU, ADDONUAPLUS #### [facility] [address] [place] [address] Blood toxic granulation dete ction by light microscopyOrdered By: Gilbert Lockwood on 2023 Toxic granules LM Ql (Bld) Slight [facility] Comprehensive Metabolic Pane kimberly 2023 Albumin [Mass/Vol] 3.1 g/dL Low 3.5-5.7 The [facility] Comment on above: Performed By: #### C UU, ADDONUAPLUS #### [address] Anion gap [Moles/Vol] 10.8 mmol/L Normal 6.0-15.0 Th e [facility] Comment on above: Performed By: #### C UU, ADDONUAPLUS #### [address] Calcium [Mass/Vol] 7.7 mg/dL Low 8.6-10.3 The [facility] Comment on above: Performed By: #### C UU, ADDONUAPLUS #### [address] Chloride [Moles/Vol] 113 mmol/L High 98-107 The [facility] Comment on above: Performed By: #### C UU, ADDONUAPLUS #### [address] CO2 [Moles/Vol] 20.8 mmol/L Low 21.0-31.0 The [facility] Comment on above: Performed By: #### C UU, ADDONUAPLUS #### [address] Creatinine [Mass/Vol] 3.56 mg/dL High 0.70-1.30 The [facility] Comment on above: Performed By: #### C UU, ADDONUAPLUS #### [address] Creatinine Clr Calc Pharmacy 19.86 Normal The [facility] Comment on above: Result Comment: PERF ORMED BY: [place] [address] PATHOLOGIST MANAGER [employer] RENETTA MONACO M.D. Performed By: #### C UU, ADDONUAPLUS #### [facility] [address] [place] [address] [place] GFR/1.73 sq M.predicted MDRD (S/P/Bld) [Vol rate/Area] 17.864 mL/min/{1.73_m2} Normal The [facility] Comment on above: Performed By: #### C UU, ADDONUAPLUS #### [address] Glucose [Mass/Vol] 70 mg/dL Normal 70-100 The [facility] Comment on above: Result Comment: [place] Glucose Reference Range is dependent on time and content of last meal. Glucose of more than 200 mg/dL in a nonstressed, ambulatory subject supports the diagnosis of Diabetes Mellitus. ADA recommended reference range Performed By: #### C UU, ADDONUAPLUS #### [address] Potassium [Moles/Vol] 4.6 mmol/L Normal 3.5-5.1 The [facility] Comment on above: Performed By: #### C UU, ADDONUAPLUS #### [place] [address] [place] Sodium [Moles/Vol] 140 mmol/L Normal 136-145 The [facility] Comment on above: Performed By: #### C UU, ADDONUAPLUS #### [place] [address] [place] Urea nitrogen [Mass/Vol] 42 mg/dL High 7-25 The [facility] Comment on above: Performed By: #### C UU, ADDONUAPLUS #### [place] [address] [place] Creatinine [Mass/volume] in UrineOrdered By: Jim Arcos on 2023 Creatinine (U) [Mass/Vol] 109.0 mg/dL 14.0-26.0 [facility] Creatinine, Urine (Random)on 2023 Creatinine, Urine (Random) 109.0 mg/dL High 14.0-26.0 The [facility] Comment on above: Performed By: #### B MP, CBC #### [place] [address] Diff and CBCon 2023 Band form neutrophils/100 WBC (Bld) 24 % High 0-5 The [facility] Comment on above: Performed By: #### B MP, CBC #### [address] Dohle Bodies Slight Normal The [facility] Comment on above: Performed By: #### B MP, CBC #### [address] Erythrocyte distribution width (RBC) [Ratio] 15.4 % High 12.0-14.8 The [facility] Comment on above: Performed By: #### B MP, CBC #### [address] Hematocrit (Bld) [Volume fraction] 34.0 % Low 38.8-50.0 The [facility] Comment on above: Performed By: #### B MP, CBC #### [address] Hemoglobin (Bld) [Mass/Vol] 11.2 g/dL Low 13.0-17.0 The [facility] Comment on above: Performed By: #### B MP, CBC #### [address] Lymphocytes/100 WBC (Bld) 6 % Low 18-42 The [facility] Comment on above: Performed By: #### B MP, CBC #### [address] MCH (RBC) [Entitic mass] 27.6 pg Normal 27.5-35.2 The [facility] Comment on above: Performed By: #### B MP, CBC #### [address] MCV (RBC) [Entitic vol] 84.2 fL Normal 83.5-101 T he [facility] Comment on above: Performed By: #### B MP, CBC #### [address] Mean Corpuscular HGB Conc 32.8 g/dL Normal 32.5-35.6 The [facility] Comment on above: Performed By: #### B MP, CBC #### [address] Metamyelocytes 5 % High 0-0 The [facility] Comment on above: Performed By: #### B MP, CBC #### [place] [address] [place] Monocytes/100 WBC (Bld) 5 % Normal 2-11 T he [facility] Comment on above: Performed By: #### B MP, CBC #### [address] Platelet Estimate Decreased Normal Normal The [facility] Comment on above: Performed By: #### B MP, CBC #### [address] Platelet mean volume (Bld) [Entitic vol] 8.2 fL Normal 6.6-10.1 The [facility] Comment on above: Performed By: #### B MP, CBC #### [address] Platelet Morphology Normal Normal Normal The [facility] Comment on above: Result Comment: PERF ORMED BY: [place] [address] PATHOLOGIST MANAGER [employer] RENETTA MONACO M.D. Performed By: #### B MP, CBC #### [place] [address] [place] Platelets (Bld) [#/Vol] 121 10*3/uL Low 150-450 The [facility] Comment on above: Performed By: #### B MP, CBC #### [place] [address] [place] RBC (Bld) [#/Vol] 4.04 10*6/uL Normal 3.90-5.60 The [facility] Comment on above: Performed By: #### B MP, CBC #### [address] RBC morphology finding Nom (Bld) Normal Normal Normal The [facility] Comment on above: Performed By: #### B MP, CBC #### [facility] [address] [place] [address] [place] Segmented neutrophils/100 WBC (Bld) 62 % Normal 50-70 The [facility] Comment on above: Performed By: #### B MP, CBC #### [address] Toxic Granulation Slight Normal The [facility] Comment on above: Performed By: #### B MP, CBC #### [facility] [address] [place] [address] Toxic Vacuolation Slight Normal The [facility] Comment on above: Performed By: #### B MP, CBC #### [facility] [address] [place] [address] WBC (Bld) [#/Vol] 17.9 10*3/uL High 4.1-10.5 The [facility] Comment on above: Performed By: #### B MP, CBC #### [address] ECH echo transthoracicon ECH echo transthoracic [facility] [place] [address] [place] [address] Echocardiogram Signed Patient: Fede Guerra SR MR#: [id number] : 1955 Acct:[id number] Age/Sex: 68 / M ADM Date: 03/15/23 Loc: Room: [address] [place] [address] Type: ADM IN Attending Dr: Zeinab Poole [...] 3.0 mmHg E/E' med: 4.3 Transcribed By: SCV Performed At: 03/16/23 1012 Signed By: Donis England MD 03/16/23 1702 Normal The [facility] Eosinophil,Urineon 3 Eosinophil,Urine 2 % High 0-1 The [facility] Comment on above: Result Comment: PERF ORMED BY: [place] [address] PATHOLOGIST MANAGER [employer] RENETTA MONACO M.D. Performed By: #### B MP, CBC #### [address] Eosinophils detection in uri ne sediment by Black stainOrdered By: Jim Arcos on 2023 Eosinophils Black stain Ql (Urine sed) 2 % 0-1 [facility] Lactate [Moles/volume] in Se rum or PlasmaOrdered By: Gilbert Lockwood on 2023 Lactate [Moles/Vol] 1.3 mmol/L Normal 0.5-2.2 [facility] Comment on above: Result Comment: PERF ORMED BY: [place] [address] PATHOLOGIST MANAGER [employer] JIANLAN SUN M.D. Performed By: #### C UU, ADDONUAPLUS #### [facility] [address] [place] [address] [place] Lactic Acidon 2023 Lactate [Moles/Vol] 1.8 mmol/L Normal 0.5-2.2 The [facility] Comment on above: Result Comment: PERF ORMED BY: [place] [address] PATHOLOGIST MANAGER [employer] RENETTA MONACO M.D. Performed By: #### L ACTIC, HS TROP #### [place] [address] [place] Metamyelocytes/100 WBC Manua l cnt (Bld)Ordered By: Gilbert Lockwood on 2023 Metamyelocytes/100 WBC (Bld) 5 % 0-0 [facility] Potassiumon 2023 Potassium [Moles/Vol] 4.7 mmol/L Normal 3.5-5.1 The [facility] Comment on above: Result Comment: PERF ORMED BY: [place] [address] PATHOLOGIST MANAGER [employer] RENETTA MONACO M.D. Performed By: #### B MP, CBC #### [place] [address] [place] Potassium [Moles/volume] in UrineOrdered By: Jim Arcos on 2023 Potassium (U) [Moles/Vol] 39.7 mmol/L [facility] Comment on above: No reference range e stablished Potassium, Urine (Random)on 2023 Potassium, Urine (Random) 39.7 mmol/L Normal The [facility] Comment on above: Result Comment: No r eference range established PERFORMED BY: [place] [address] PATHOLOGIST MANAGER [employer] RENETTA MONACO M.D. Performed By: #### B MP, CBC #### [place] [id number] [place] Protein [Mass/volume] in Ser um or PlasmaOrdered By: Gilbert Lockwood on 2023 Protein [Mass/Vol] 5.6 g/dL Low 6.4-8.9 [facility] Comment on above: Performed By: #### C UChelle, GUSTAVOONRENZOPLUS #### [address] Protein [Mass/volume] in Uri neOrdered By: Jim Arcos on 2023 Protein (U) [Mass/Vol] 103 mg/dL High 0-9 [facility] Comment on above: Performed By: #### B MP, CBC #### [address] Serum globulin measurement b y calculation (mass/volume)Ordered By: Gilbert Lockwood on 2023 Globulin (S) [Mass/Vol] 2.5 g/dL Normal [facility] Comment on above: Performed By: #### C UChelle, GUSTAVOONRENZOPLUS #### [address] Serum or plasma albumin/glob ulin mass ratioOrdered By: Gilbert Lockwood on 2023 Albumin/Globulin [Mass ratio] 1.2 {ratio} Normal [facility] Comment on above: Performed By: #### C UU, ADDONRENZOPLUS #### [address] Sodium [Moles/volume] in Uri neOrdered By: Jim Arcos on 2023 Sodium (U) [Moles/Vol] 67 mmol/L Normal [facility] Comment on above: No reference range e stablished Result Comment: No r eference range established Performed By: #### B MP, CBC #### [facility] [address] [place] [address] [place] Troponin I High Sensitivityo n 2023 Troponin I High Sensitivity 93.2 pg/mL Off scale high 0.0-20.0 The [facility] Comment on above: Result Comment: Crit ical Result : Called to and read back by: STEFANIE KENDALL at: 2023 06:27:35 by:ZOLTAN PERFORMED BY: [place] [address] PATHOLOGIST MANAGER [employer] RENETTA MONACO M.D. Performed By: #### B MP, CBC #### [facility] [address] [place] [address] Troponin I High Sensitivity 123.7 pg/mL Off scale high 0.0-20.0 [facility] Comment on above: Order Comment: ARRIETA D AGAIN @0320, NO ANSWER Result Comment: Crit ical Result : Called to and read back by: MIGUEL KENDALL at: 2023 03:27:22 by:LORENZO PERFORMED BY: [place] [address] PATHOLOGIST MANAGER [employer] RENETTA MONACO M.D. Performed By: #### L ACTIC, HS TROP #### [facility] [address] [place] [address] Troponin I.cardiac [Mass/vol ume] in Serum or Plasma by Detection limit <= 0.01 ng/Ordered By: Gilbert Lockwood on 2023 Troponin I.cardiac DL <= 0.01 ng/mL [Mass/Vol] 93.2 pg/mL 0.0-20.0 [facility] Comment on above: Critical Result : Ca lled to and read back by: STEFANIE KENDALL at: 2023 06:27:35 by:ZOLTAN US renal BIon 2023 US renal BI [facility] [place] [address] Ultrasound Report Signed Patient: Fede Guerra SR MR#: [id number] : 1955 Acct:[id number] Age/Sex: 68 / M ADM Date: 03/15/23 Loc: Room: [address] [place] [address] Type: ADM IN Attending Dr: Zeinab Poole MD Ordering Provider: iJm Arcos DO Date of Service: 03/16/23 US/US [...] Christie Durán M.D.03/16/2023 9:49 AM Dictation Location: [place] [address] Tech: Leah Foreman Transcribed By: CLIFFORD 03/16/23948 Dictated By: Christie Durán MD [id number] Signed By: 03/16/23948 Normal [facility] Automated erythrocytes count in urine sediment (number/area)Ordered By: River Alberto on 03-14-2023 RBC Auto (Urine sed) [#/Area] 5-9 [HPF] 0-4 [facility] Automated leukocytes count i n urine sediment (number/area)Ordered By: River Alberto on 03-14-2023 WBC Auto (Urine sed) [#/Area] Innumerable [HPF] 0-4 [facility] Automated urine color determ inationOrdered By: River Alberto on 03-14-2023 Color (U) Yellow Normal Yellow [facility] Comment on above: Order Comment: Name Collection Type:: Hernandez Catheter Performed By: #### B MP, CBC #### [facility] [address] [place], [place] [address] Bilirubin Test strip Ql (U)O rdered By: River Alberto on 03-14-2023 Bilirubin Ql (U) Negative Negative [facility] Dipstick and Microscopicon 1 05-15-2022 Appearance (U) Turbid Critically abnormal Clear [facility] Comment on above: Order Comment: Name Collection Type:: Hernandez Catheter Performed By: #### B MP, CBC #### [facility] [address] [place] [address] [place] Bacteria,Urine 4+ High None Seen [facility] Comment on above: Order Comment: Name Collection Type:: Hernandez Catheter Performed By: #### B MP, CBC #### [facility] [address] [place] [address] [place] Bilirubin,Urine Negative Normal Negative The [facility] Comment on above: Order Comment: Name Collection Type:: Hernandez Catheter Performed By: #### B MP, CBC #### [place] [address] [place] Glucose Ql (U) Normal Normal Normal [facility] Comment on above: Order Comment: Name Collection Type:: Hernandez Catheter Performed By: #### B MP, CBC #### [place] [address] [place] Hyaline Casts,Urine None Seen Normal 0-8 [facility] Comment on above: Order Comment: Name Collection Type:: Hernandez Catheter Performed By: #### B MP, CBC #### [place] [address] [place] Ketones Ql (U) Negative Normal Negative [facility] Comment on above: Order Comment: Name Collection Type:: Hernandez Catheter Performed By: #### B MP, CBC #### [place] [address] [place] Leukocyte esterase Test strip Ql (U) 4+ High Negative [facility] Comment on above: Order Comment: Name Collection Type:: Hernandez Catheter Performed By: #### B MP, CBC #### [place] [address] [place] Nitrite,Urine Negative Normal Negative The [facility] Comment on above: Order Comment: Name Collection Type:: Hernandez Catheter Performed By: #### B MP, CBC #### [place] [address] [place] Occult Blood,Urine 3+ High Negative [facility] Comment on above: Order Comment: Name Collection Type:: Hernandez Catheter Result Comment: PERF ORMED BY: [place] [address] PATHOLOGIST MANAGER [employer] RENETTA MONACO M.D. Performed By: #### B MP, CBC #### [address] RBC,Urine 5-9 High 0-4 [facility] Comment on above: Order Comment: Name Collection Type:: Hernandez Catheter Performed By: #### B MP, CBC #### [address] Specificy [place],Urine 1.009 Normal 1.001-1.030 [facility] Comment on above: Order Comment: Name Collection Type:: Hernandez Catheter Performed By: #### B MP, CBC #### [address] Squamous Epithelial Cell,Urine None Seen Normal 0-2 [facility] Comment on above: Order Comment: Name Collection Type:: Hernandez Catheter Performed By: #### B MP, CBC #### [address] Urobilinogen,Urine Normal Normal Normal [facility] Comment on above: Order Comment: Name Collection Type:: Hernandez Catheter Performed By: #### B MP, CBC #### [address] WBC,Urine Innumerable High 0-4 [facility] Comment on above: Order Comment: Name Collection Type:: Hernandez Catheter Performed By: #### B MP, CBC #### [address] Yeast,Urine None Seen Normal None Seen [facility] Comment on above: Order Comment: Name Collection Type:: Hernandez Catheter Result Comment: PERF ORMED BY: [place] [address] PATHOLOGIST MANAGER [employer] RENETTA MONACO M.D. Performed By: #### B MP, CBC #### [address] Ketones Auto test strip (U) [Mass/Vol]Ordered By: River Alberto on 03-14-2023 Ketones (U) [Mass/Vol] Negative Negative [facility] - UrinalysisOrder ed By: River Alberto on 03-14-2023 Hyaline casts LM Ql (Urine sed) None seen [LPF] 0-8 [facility] Nitrite Test strip Ql (U)Ord ered By: River Alberto on 03-14-2023 Nitrite Ql (U) Negative Negative [facility] Specific gravity Auto test s trip (U) [Rel density]Ordered By: River Alberto on 03-14-2023 Specific gravity (U) [Rel density] 1.009 1.001-1.030 [facility] Squamous epithelial cells de tection in urine sediment by light microscopyOrdered By: River Alberto on 03-14-2023 Epithelial cells.squamous LM Ql (Urine sed) None seen [HPF] 0-2 [facility] Urine Cultureon 03-14-2023 Bacteria identified Cx Nom (U) ORGANISM: Enterococcus faecalis (O:ENTFAC) [place] Count >100,000 ORGANISM: Klebsiella pneumoniae (ESBL) (O:KLEPNEESBL) [place] Count >100,000 ORGANISM: Acinetobacter crystal/nosocom grp (O:ACIBAUNOS) [place] Count 50,000 Organism Comments MULTIDRUG RESISTANT ORGANISM * This is a corrected result. * A prior result that was reported as final has been changed. Isolate #2 changed from Klebsiella pneumoniae to Klebsiella pneumoniae ESBL Aerobic SCOTT Charge (PCMIC38) ----- SUSCEPTIBILITY ---- ORGANISM: O:ENTFAC ANTIBIOTIC INTERPRETATION SCOTT Ampicillin R >8 Ciprofloxacin [...] RESISTANT TO ALL B-LACTAM DRUGS. PERFORMED BY: [address] [place] [address] PATHOLOGIST MANAGER [employer] RENETTA MONACO M.D. Normal [facility] Comment on above: Performed By: #### L ANDREW BRADFORD TROP #### [facility] [address] [place] [address] [place] Urine bacteria detection by automated methodOrdered By: River Alberto on 03-14-2023 Bacteria Auto Ql (U) 4+ None Seen [facility] Urine clarity by refractomet ry automatedOrdered By: River Alberto on 03-14-2023 Clarity Refractometry automated (U) Turbid Clear [facility] Urine culture routineOrdered By: River Alberto on 03-14-2023 Bacteria identified Cx Nom (U) Enterococcus faecalis [facility] Bacteria identified Cx Nom (U) Klebsiella pneumoniae (ESBL) [facility] Bacteria identified Cx Nom (U) Acinetobacter crystal/nosocom grp [facility] Urine glucose measurement by automated test strip (mass/volume)Ordered By: River Alberto on 03-14-2023 Glucose Auto test strip (U) [Mass/Vol] Normal mg/dL Normal [facility] Urine hemoglobin detection b y automated test stripOrdered By: River Alberto on 03-14-2023 Hemoglobin Auto test strip Ql (U) 3+ Negative [facility] Urine leukocyte esterase det ection by automated test stripOrdered By: River Alberto on 03-14-2023 Leukocyte esterase Auto test strip Ql (U) 4+ Negative [facility] Urine pH measurement by auto mated test stripOrdered By: River Alberto on 03-14-2023 pH (U) 6.0 [pH] Normal 5.0-9.0 [facility] Comment on above: Order Comment: Name Collection Type:: Hernandez Catheter Performed By: #### B MP, CBC #### [facility] [address] [place] [address] [place] Urine protein measurement by automated test strip (mass/volume)Ordered By: River Alberto on 03-14-2023 Protein (U) [Mass/Vol] 30 mg/dL High Negative [facility] Comment on above: Order Comment: Name Collection Type:: Hernandez Catheter Performed By: #### B MP, CBC #### [facility] [address] [place] [address] [place] Urobilinogen Auto test strip (U) [Mass/Vol]Ordered By: River Alberto on 03-14-2023 Urobilinogen (U) [Mass/Vol] Normal mg/dL Normal [facility] Yeast detection in urine sed iment by light microscopyOrdered By: River Alberto on 03-14-2023 Yeast LM Ql (Urine sed) None seen [HPF] None Se en [facility] CNPNon 03-01-2023 CNPN Normal [facility] Alanine aminotransferase [En zymatic activity/volume] in Serum or PlasmaOrdered By: William Carver on 02-14-2023 ALT [Catalytic activity/Vol] 7 U/L Normal 7-52 [facility] Comment on above: Performed By: #### B MP, CBC #### [facility] [address] [place] [address] [place] Albumin [Mass/volume] in Ser um or Plasma by Bromocresol green (BCG) dye binding methoOrdered By: William Carver on 02-14-2023 Albumin BCG dye [Mass/Vol] 3.9 g/dL 3.5-5.7 [facility] Alkaline phosphatase [Enzyma tic activity/volume] in Serum or PlasmaOrdered By: William Carver on 02-14-2023 ALP [Catalytic activity/Vol] 55 U/L Normal 34-104 [facility] Comment on above: Performed By: #### B MP, CBC #### [facility] [address] [place] [address] Aspartate aminotransferase [ Enzymatic activity/volume] in Serum or PlasmaOrdered By: William Carver on 02-14-2023 AST [Catalytic activity/Vol] 10 U/L Low 13-39 [facility] Comment on above: Performed By: #### B MP, CBC #### [facility] [address] [place] [address] [place] Automated basophil %Ordered By: William Carver on 02-14-2023 Basophils/100 WBC (Bld) 1.1 % Normal . F [facility] Comment on above: Performed By: #### B MP, CBC #### [facility] [address] [place] [address] [place] Automated basophil countOrde red By: William Carver on 02-14-2023 Basophils (Bld) [#/Vol] 0.1 10*3/uL Normal 0.0-0.2 [facility] Comment on above: Result Comment: PERF ORMED BY: [place] [address] PATHOLOGIST MANAGER [employer] RENETTA MONACO M.D. Performed By: #### B MP, CBC #### [address] Automated blood monocyte cou ntOrdered By: William Carver on 02-14-2023 Monocytes (Bld) [#/Vol] 0.6 10*3/uL Normal 0.0-0.8 [facility] Comment on above: Performed By: #### B MP, CBC #### [address] Automated eosinophil %Ordere d By: William Carver on 02-14-2023 Eosinophils/100 WBC (Bld) 3.2 % Normal . [facility] Comment on above: Performed By: #### B MP, CBC #### [address] Automated eosinophil countOr dered By: William Carver on 02-14-2023 Eosinophils (Bld) [#/Vol] 0.2 10*3/uL Normal 0.0-0.45 [facility] Comment on above: Performed By: #### B MP, CBC #### [address] Automated erythrocytes count in urine sediment (number/area)Ordered By: William Carver on 02-14-2023 RBC Auto (Urine sed) [#/Area] 1-2 [HPF] 0-4 [facility] Automated leukocytes count i n urine sediment (number/area)Ordered By: William Carver on 02-14-2023 WBC Auto (Urine sed) [#/Area] 50-100 [HPF] 0-4 [facility] Automated monocyte %Ordered By: William Carver on 02-14-2023 Monocytes/100 WBC (Bld) 9.8 % Normal . F [facility] Comment on above: Performed By: #### B MP, CBC #### [address] [address] [place] [address] [place] Automated neutrophil %Ordere d By: William Carver on 02-14-2023 Neutrophils/100 WBC (Bld) 55.6 % Normal . [facility] Comment on above: Performed By: #### B MP, CBC #### [address] Automated urine color determ inationOrdered By: William Carver on 02-14-2023 Color (U) Yellow Normal Yellow [facility] Comment on above: Order Comment: Name Collection Type:: Hernandez Catheter Performed By: #### B MP, CBC #### [address] Automated urine hyaline cast s count (number/volume)Ordered By: William Carver on 02-14-2023 Hyaline casts Auto (U) [#/Vol] 5-9 [LPF] 0-1 [facility] Automated urine sediment alice cium oxalate crystal count by microscopy (number/high powOrdered By: William Carver on 02-14-2023 Calcium oxalate crystals LM.HPF (Urine sed) [#/Area] 1+ [HPF] [facility] Basic Metabolic Panelon 01-27 GFR/1.73 sq M.predicted MDRD (S/P/Bld) [Vol rate/Area] mL/min/{1.73_m2} Normal [facility] Comment on above: Performed By: #### B MP, CBC #### [facility] [address] [place] [address] Bilirubin Test strip Ql (U)O rdered By: William Carver on 02-14-2023 Bilirubin Ql (U) Negative Negative [facility] Bilirubin.direct [Mass/volum e] in Serum or PlasmaOrdered By: William Carver on 02-14-2023 Bilirubin.direct [Mass/Vol] 0.00 mg/dL 0.03-0.18 [facility] Comment on above: If the DBIL is less than 0.1, IBIL is not able to becalculated. Bilirubin.total [Mass/volume ] in Serum or PlasmaOrdered By: William Carver on 02-14-2023 Bilirubin [Mass/Vol] 0.5 mg/dL Normal 0.3-1.0 [facility] Comment on above: Performed By: #### B MP, CBC #### [facility] [address] [address] [facility] CT abdomen pelvis w conon CT abdomen pelvis w con [facility] [address] [place] [address] CT Scan Report Signed Patient: Fede Guerra SR MR#: [id number] : 1955 Acct:[id number] Age/Sex: 67 / M ADM Date: 02/14/23 Loc: ER Room: Type: [facility] ER Attending Dr: Copies to: William Carver [...] Roger Diana M.D.02/14/2023 5:33 PM Dictation Location: [place] [address] Transcribed By: [facility] 02/14/231732 Dictated By: Roger Diana DO 02/14/231724 Signed By: 02/14/231732 Normal [facility] Calcium [Mass/volume] in Ser um or PlasmaOrdered By: William Carver on 02-14-2023 Calcium [Mass/Vol] 9.4 mg/dL Normal 8.6-10.3 [facility] Comment on above: Performed By: #### B MP, CBC #### [address] Carbon dioxide, total [Moles /volume] in Serum or PlasmaOrdered By: William Carver on 02-14-2023 CO2 [Moles/Vol] 26.8 mmol/L Normal 21.0-31.0 [facility] Comment on above: Performed By: #### B MP, CBC #### [address] Casts typing in urine sedime nt by light microscopyOrdered By: William Carver on 02-14-2023 Casts LM Nom (Urine sed) None seen [LPF] None Seen [facility] Chloride [Moles/volume] in S jennifer or PlasmaOrdered By: William Carver on 02-14-2023 Chloride [Moles/Vol] 109 mmol/L High 98-107 [facility] Comment on above: Performed By: #### B MP, CBC #### [address] Complete Blood Count Auto Di ffon 02-14-2023 Mean Corpuscular HGB Conc 33.0 g/dL Normal 32.5-35.6 [facility] Comment on above: Performed By: #### B MP, CBC #### [facility] [address] [place] [address] [place] Monocytes/100 WBC (Bld) 16.55 % Normal 0.00-20.00 [facility] Comment on above: Performed By: #### B MP, CBC #### [place] [address] [place] NRBC% 0.1 /100{WBC} Normal 0-0.[address] [facility] Comment on above: Performed By: #### B MP, CBC #### [place] [address] [place] Creatinine [Mass/volume] in Serum or PlasmaOrdered By: William Carver on 02-14-2023 Creatinine [Mass/Vol] 0.65 mg/dL Low 0.70-1.30 [facility] Comment on above: Performed By: #### B MP, CBC #### [place] [address] [place] Dipstick and Microscopicon 1 04-16-2022 Appearance (U) Turbid Critically abnormal Clear [facility] Comment on above: Order Comment: Name Collection Type:: Hernandez Catheter Performed By: #### B MP, CBC #### [place] [address] [place] Bacteria,Urine None Seen Normal None Seen [facility] Comment on above: Order Comment: Name Collection Type:: Hernandez Catheter Performed By: #### B MP, CBC #### [place] [address] [place] Bilirubin,Urine Negative Normal Negative [facility] Comment on above: Order Comment: Name Collection Type:: Hernandez Catheter Performed By: #### B MP, CBC #### [place] [address] [place] Calcium Oxalate Crystals,Urine 1+ Normal [facility] Comment on above: Order Comment: Name Collection Type:: Hernandez Catheter Performed By: #### B MP, CBC #### [place] [address] [place] Fine Granular Casts,Urine 3-4 High 0-1 [facility] Comment on above: Order Comment: Name Collection Type:: Hernandez Catheter Performed By: #### B MP, CBC #### [facility] [address] Glucose Ql (U) Normal Normal Normal [facility] Comment on above: Order Comment: Name Collection Type:: Hernandez Catheter Performed By: #### B MP, CBC #### [facility] [address] [place] [address] [place] Hyaline Casts,Urine 5-9 High 0-1 [facility] Comment on above: Order Comment: Name Collection Type:: Hernandez Catheter Performed By: #### B MP, CBC #### [facility] [address] Ketones Ql (U) Trace High Negative [facility] Comment on above: Order Comment: Name Collection Type:: Hernandez Catheter Performed By: #### B MP, CBC #### [facility] [address] Leukocyte esterase Test strip Ql (U) 3+ High Negative [facility] Comment on above: Order Comment: Name Collection Type:: Hernandez Catheter Performed By: #### B MP, CBC #### [place] [address] [place] Nitrite,Urine Negative Normal Negative [facility] Comment on above: Order Comment: Name Collection Type:: Hernandez Catheter Performed By: #### B MP, CBC #### [facility] [address] [place] [address] [place] Occult Blood,Urine Trace High Negative [facility] Comment on above: Order Comment: Name Collection Type:: Hernandez Catheter Result Comment: PERF ORMED BY: [place] [address] PATHOLOGIST MANAGER [employer] RENETTA MONACO M.D. Performed By: #### B MP, CBC #### [place] [address] [place] Othe Crystals,Urine None Seen Normal [facility] Comment on above: Order Comment: Name Collection Type:: Hernandez Catheter Performed By: #### B MP, CBC #### [address] Other Casts,Urine None Seen Normal None Seen [facility] Comment on above: Order Comment: Name Collection Type:: Hernandez Catheter Performed By: #### B MP, CBC #### [address] RBC,Urine 1-2 Normal 0-4 [facility] Comment on above: Order Comment: Name Collection Type:: Hernandez Catheter Performed By: #### B MP, CBC #### [address] Specificy [place],Urine 1.017 Normal 1.001-1.030 [facility] Comment on above: Order Comment: Name Collection Type:: Hernandez Catheter Performed By: #### B MP, CBC #### [address] Squamous Epithelial Cell,Urine 0-1 Normal 0-2 [facility] Comment on above: Order Comment: Name Collection Type:: Hernandez Catheter Performed By: #### B MP, CBC #### [address] Urobilinogen,Urine Normal Normal Normal [facility] Comment on above: Order Comment: Name Collection Type:: Hernandez Catheter Performed By: #### B MP, CBC #### [place] [address] [place] WBC,Urine 50-100 High 0-4 [facility] Comment on above: Order Comment: Name Collection Type:: Hernandez Catheter Performed By: #### B MP, CBC #### [address] Yeast,Urine None Seen Normal None Seen [facility] Comment on above: Order Comment: Name Collection Type:: Hernandez Catheter Result Comment: PERF ORMED BY: [place] [address] PATHOLOGIST MANAGER [employer] RENETTA MONACO M.D. Performed By: #### B MP, CBC #### [address] [place] [address] [place] Erythrocyte distribution wid th [Ratio] by Automated countOrdered By: William Carver on 02-14-2023 Erythrocyte distribution width (RBC) [Ratio] 14.9 % High 12.0-14.8 [facility] Comment on above: Performed By: #### B MP, CBC #### [address] Erythrocytes [#/volume] in B lood by Automated countOrdered By: William Carver on 02-14-2023 RBC (Bld) [#/Vol] 4.50 10*6/uL Normal 3.90-5.60 [facility] Comment on above: Performed By: #### B MP, CBC #### [address] Fine granular cast count in urine sediment by microscopy (number/low power field )Ordered By: William Carver on 02-14-2023 Fine Granular Casts LM.LPF (Urine sed) [#/Area] 3-4 [LPF] 0-1 [facility] Glucose [Mass/volume] in Ser um or PlasmaOrdered By: William Carver on 02-14-2023 Glucose [Mass/Vol] 101 mg/dL High 70-100 [facility] Comment on above: ADA recommended refe rence rangeRandom Glucose Reference Range is dependent on time and content of last meal. Glucose of more than 200 mg/dL in a nonstressed, ambulatory subject supports the diagnosis of Diabetes Mellitus. Result Comment: [place] om Glucose Reference Range is dependent on time and content of last meal. Glucose of more than 200 mg/dL in a nonstressed, ambulatory subject supports the diagnosis of Diabetes Mellitus. ADA recommended reference range Performed By: #### B MP, CBC #### [address] Hematocrit [Volume Fraction] of Blood by Automated countOrdered By: William Carver on 02-14-2023 Hematocrit (Bld) [Volume fraction] 37.2 % Low 38.8-50.0 [facility] Comment on above: Performed By: #### B MP, CBC #### [facility] [address] Hemoglobin [Mass/volume] in BloodOrdered By: William Carver on 02-14-2023 Hemoglobin (Bld) [Mass/Vol] 12.3 g/dL Low 13.0-17.0 [facility] Comment on above: Performed By: #### B MP, CBC #### [address] Hepatic Panelon 02-14-2023 Albumin [Mass/Vol] 3.9 g/dL Normal 3.5-5.7 [facility] Comment on above: Performed By: #### B MP, CBC #### [address] Bilirubin,Indirect 0.5 mg/dL Normal [facility] Comment on above: Performed By: #### B MP, CBC #### [address] Bilirubin.indirect [Mass/Vol] 0.00 mg/dL Low 0.03-0.18 [facility] Comment on above: Result Comment: If t he DBIL is less than 0.1, IBIL is not able to be calculated. Performed By: #### B MP, CBC #### [address] Ketones Auto test strip (U) [Mass/Vol]Ordered By: William Carver on 02-14-2023 Ketones (U) [Mass/Vol] Trace Negative [facility] Leukocytes [#/volume] correc mayte for nucleated erythrocytes in Blood by Automated counOrdered By: William Carver on 02-14-2023 WBC corrected for nucl RBC Auto (Bld) [#/Vol] 6.0 10*3/uL 4.1-10.5 [facility] Leukocytes [#/volume] in Blo od by Automated countOrdered By: William Carver on 02-14-2023 WBC (Bld) [#/Vol] 6.0 10*3/uL Normal 4.1-10.5 [facility] Comment on above: Performed By: #### B MP, CBC #### [facility] [address] [place] [address] Lipase [Enzymatic activity/v olume] in Serum or PlasmaOrdered By: William Carver on 02-14-2023 Lipase [Catalytic activity/Vol] 7.0 U/L Low 11.0-82.0 [facility] Comment on above: Result Comment: PERF ORMED BY: [place] [address] PATHOLOGIST MANAGER [employer] RENETTA MONACO M.D. Performed By: #### B MP, CBC #### [address] Lymphocytes [#/volume] in Bl ood by Automated countOrdered By: William Carver on 02-14-2023 Lymphocytes (Bld) [#/Vol] 1.8 10*3/uL Normal 1.00-4.8 [facility] Comment on above: Performed By: #### B MP, CBC #### [place] [address] [place] Lymphocytes/100 leukocytes i n Blood by Automated countOrdered By: William Carver on 02-14-2023 Lymphocytes/100 WBC (Bld) 30.3 % Normal . [facility] Comment on above: Performed By: #### B MP, CBC #### [facility] [address] [place] [address] [place] MCH [Entitic mass] by Automa mayte countOrdered By: William Carver on 02-14-2023 MCH (RBC) [Entitic mass] 27.3 pg Low 27.5-35.2 [facility] Comment on above: Performed By: #### B MP, CBC #### [place] [address] [place] MCHC Auto (RBC) [Mass/Vol]Or dered By: William Carver on 02-14-2023 MCHC (RBC) [Mass/Vol] 33.0 g/dL 32.5-35.6 [facility] MCV [Entitic volume] by Auto mated countOrdered By: William Carver on 02-14-2023 MCV (RBC) [Entitic vol] 82.7 fL Low 83.5-101 F [facility] Comment on above: Performed By: #### B MP, CBC #### [facility] [address] Monocyte distribution width [Entitic volume] in Blood by AutomatedOrdered By: William Wen on 02-14-2023 Monocyte distribution width Auto (Bld) [Entitic vol] 16.55 % 0.00-20.00 [facility] Neutrophils [#/volume] in Bl ood by Automated countOrdered By: William Carver on 02-14-2023 Neutrophils (Bld) [#/Vol] 3.3 10*3/uL Normal 1.8-7.7 [facility] Comment on above: Performed By: #### B MP, CBC #### [address] Nitrite Test strip Ql (U)Ord ered By: William Carver on 02-14-2023 Nitrite Ql (U) Negative Negative [facility] No Panel InformationOrdered By: William Carver on 02-14-2023 Estimated GFR (CKD-EPI) > 60.0 mL/Min [facility] Creatinine Clearance (Chem N/A [facility] Nucleated erythrocytes [Pres ence] in Blood by Automated countOrdered By: William Carver on 02-14-2023 Nucleated RBC Auto Ql (Bld) 0.1 /100{WBC} 0-0.5 [facility] Platelet mean volume [Entiti c volume] in Blood by Automated countOrdered By: William Carver on 02-14-2023 Platelet mean volume (Bld) [Entitic vol] 7.7 fL Normal 6.6-10.1 [facility] Comment on above: Performed By: #### B MP, CBC #### [facility] [address] [place] [address] Platelets [#/volume] in Bloo d by Automated countOrdered By: William Carver on 02-14-2023 Platelets (Bld) [#/Vol] 260 10*3/uL Normal 150-450 [facility] Comment on above: Performed By: #### B MP, CBC #### [facility] [address] [place] [address] Potassium [Moles/volume] in Serum or PlasmaOrdered By: William Carver on 02-14-2023 Potassium [Moles/Vol] 3.7 mmol/L Normal 3.5-5.1 [facility] Comment on above: Performed By: #### B MP, CBC #### [address] Protein [Mass/volume] in Ser um or PlasmaOrdered By: William Carver on 02-14-2023 Protein [Mass/Vol] 6.9 g/dL Normal 6.4-8.9 [facility] Comment on above: Performed By: #### B MP, CBC #### [address] Serum globulin measurement b y calculation (mass/volume)Ordered By: William Carver on 02-14-2023 Globulin (S) [Mass/Vol] 3.0 g/dL Normal [facility] Comment on above: Performed By: #### B MP, CBC #### [facility] [address] [place] [address] Serum or plasma albumin/glob ulin mass ratioOrdered By: William Carver on 02-14-2023 Albumin/Globulin [Mass ratio] 1.3 {ratio} Normal [facility] Comment on above: Performed By: #### B MP, CBC #### [address] Serum or plasma anion gap de terminationOrdered By: William Carver on 02-14-2023 Anion gap [Moles/Vol] 7.9 mmol/L Normal 6.0-15.0 [facility] Comment on above: Performed By: #### B MP, CBC #### [address] Serum or plasma non-glucuron idated bilirubin measurement (mass/volume)Ordered By: William Carver on 02-14-2023 Bilirubin.indirect [Mass/Vol] 0.5 mg/dL [facility] Sodium [Moles/volume] in Ser um or PlasmaOrdered By: William Wen on 02-14-2023 Sodium [Moles/Vol] 140 mmol/L Normal 136-145 [facility] Comment on above: Performed By: #### B VERNA, CBC #### [facility] [address] [address] [facility] Specific gravity Auto test s trip (U) [Rel density]Ordered By: William Wen on 02-14-2023 Specific gravity (U) [Rel density] 1.017 1.001-1.030 [facility] Squamous epithelial cells de tection in urine sediment by light microscopyOrdered By: William Carver on 02-14-2023 Epithelial cells.squamous LM Ql (Urine sed) 0-1 [HPF] 0-2 [facility] Urea nitrogen [Mass/volume] in Serum or PlasmaOrdered By: William Carver on 02-14-2023 Urea nitrogen [Mass/Vol] 9 mg/dL Normal 7-25 [facility] Comment on above: Performed By: #### B VERNA, CBC #### [facility] [address] Urine Cultureon 02-14-2023 Bacteria identified Cx Nom (U) ORGANISM: Acinetobacter crystal/nosocom grp (O:ACIBAUNOS) [place] Count 15,000 Aerobic SCOTT Charge ([id number]) ----- [...] RESISTANT TO ALL B-LACTAM DRUGS. PERFORMED BY: [place] [address] PATHOLOGIST MANAGER [employer] RENETTA MONACO M.D. Normal [facility] Comment on above: Performed By: #### B VERNA, CBC #### [facility] [address] [place] [address] Urine bacteria detection by automated methodOrdered By: William Carver on 02-14-2023 Bacteria Auto Ql (U) None seen None Seen [facility] Urine clarity by refractomet ry automatedOrdered By: William Carver on 02-14-2023 Clarity Refractometry automated (U) Turbid Clear [facility] Urine culture routineOrdered By: William Carver on 02-14-2023 Bacteria identified Cx Nom (U) Acinetobacter crystal/nosocom grp [facility] Urine glucose measurement by automated test strip (mass/volume)Ordered By: William Carver on 02-14-2023 Glucose Auto test strip (U) [Mass/Vol] Normal mg/dL Normal [facility] Urine hemoglobin detection b y automated test stripOrdered By: William Carver on 02-14-2023 Hemoglobin Auto test strip Ql (U) Trace Negative [facility] Urine leukocyte esterase det ection by automated test stripOrdered By: William Carver on 02-14-2023 Leukocyte esterase Auto test strip Ql (U) 3+ Negative [facility] Urine pH measurement by auto mated test stripOrdered By: William Carver on 02-14-2023 pH (U) 7.5 [pH] Normal 5.0-9.0 [facility] Comment on above: Order Comment: Name Collection Type:: Hernandez Catheter Performed By: #### B VERNA, CBC #### [place] [id number] [facility] Urine protein measurement by automated test strip (mass/volume)Ordered By: William Carver on 02-14-2023 Protein (U) [Mass/Vol] 300 mg/dL High Negative [facility] Comment on above: Order Comment: Name Collection Type:: Hernandez Catheter Performed By: #### B MP, CBC #### [facility] [address] [place] [address] Urine sediment crystal ident ification by light microscopyOrdered By: William Carver on 02-14-2023 Crystals LM Nom (Urine sed) None seen [HPF] [facility] Urobilinogen Auto test strip (U) [Mass/Vol]Ordered By: William Carver on 02-14-2023 Urobilinogen (U) [Mass/Vol] Normal mg/dL Normal [facility] Yeast detection in urine sed iment by light microscopyOrdered By: William Carver on 02-14-2023 Yeast LM Ql (Urine sed) None seen [HPF] None Se en [facility] Automated basophil %Ordered By: Ray Gainesr on 02-06-2023 Basophils/100 WBC (Bld) 1.1 % Normal . [facility] Comment on above: Order Comment: for m uscle spasms, I let the charge @rn, she is going to let hany huitron,pls. Performed By: #### L ACTIC, HS TROP #### [facility] [address] [place] [address] Automated basophil countOrde red By: Ray Floresomar on 02-06-2023 Basophils (Bld) [#/Vol] 0.0 10*3/uL Normal 0.0-0.2 [facility] Comment on above: Order Comment: for m uscle spasms, I let the charge @rn, she is going to let hany huitronpls. Result Comment: PERF ORMED BY: [place] [address] PATHOLOGIST MANAGER [employer] REN[employer]TA MONACO M.D. Performed By: #### L ACTIC, HS TROP #### [address] Automated blood monocyte cou ntOrdered By: Obaydah Daromar on 02-06-2023 Monocytes (Bld) [#/Vol] 0.3 10*3/uL Normal 0.0-0.8 [facility] Comment on above: Order Comment: for m uscle spasms, I let the charge @rn, she is going to let rn lila know,pls. Performed By: #### L ACTIC, HS TROP #### [facility] [address] [place] [address] Automated eosinophil %Ordere d By: Obaydah Daromar on 02-06-2023 Eosinophils/100 WBC (Bld) 6.5 % Normal . [facility] Comment on above: Order Comment: for m uscle spasms, I let the charge @rn, she is going to let rn lila know,pls. Performed By: #### L ACTIC, HS TROP #### [facility] [address] [place] [address] Automated eosinophil countOr dered By: Obbrandondachris Daromar on 02-06-2023 Eosinophils (Bld) [#/Vol] 0.2 10*3/uL Normal 0.0-0.45 [facility] Comment on above: Order Comment: for m uscle spasms, I let the charge @rn, she is going to let rn lila know,pls. Performed By: #### L ACTIC, HS TROP #### [facility] [address] [place] [address] Automated monocyte %Ordered By: Obaydah Daromar on 02-06-2023 Monocytes/100 WBC (Bld) 10.1 % Normal . [facility] Comment on above: Order Comment: for m uscle spasms, I let the charge @rn, she is going to let rn lila know,pls. Performed By: #### L ACTIC, HS TROP #### [facility] [address] [place] [address] Automated neutrophil %Ordere d By: Obaydah Daromar on 02-06-2023 Neutrophils/100 WBC (Bld) 31.0 % Normal . [facility] Comment on above: Order Comment: for m uscle spasms, I let the charge @rn, she is going to let rn lila know,pls. Performed By: #### L ACTIC, HS TROP #### [facility] [address] Basic Metabolic Panelon 01-26 Creatinine Clr Calc Pharmacy 87.63 Normal [facility] Comment on above: Order Comment: for wendy uscle spasms, I let the charge @rn, she is going to let hany huitronpls. Result Comment: PERF ORMED BY: [place] [address] PATHOLOGIST MANAGER [employer] RENETTA MONACO M.D. Performed By: #### L ACTIC, HS TROP #### [address] GFR/1.73 sq M.predicted MDRD (S/P/Bld) [Vol rate/Area] mL/min/{1.73_m2} Normal [facility] Comment on above: Order Comment: for wendy uscle spasms, I let the charge @rn, she is going to let hany huitronpls. Performed By: #### L ACTIC, HS TROP #### [address] Calcium [Mass/volume] in Ser um or PlasmaOrdered By: Ray Betancourt on 02-06-2023 Calcium [Mass/Vol] 8.8 mg/dL Normal 8.6-10.3 [facility] Comment on above: Order Comment: for m uscle spasms, I let the charge @rn, she is going to let hany huitronpls. Performed By: #### L ACTIC, HS TROP #### [facility] [address] [place] [address] [place] Carbon dioxide, total [Moles /volume] in Serum or PlasmaOrdered By: Ray Floresomar on 02-06-2023 CO2 [Moles/Vol] 24.9 mmol/L Normal 21.0-31.0 [facility] Comment on above: Order Comment: for m uscle spasms, I let the charge @rn, she is going to let hany huitronpls. Performed By: #### L ACTIC, HS TROP #### [facility] [address] Chloride [Moles/volume] in S jennifer or PlasmaOrdered By: Ray Floresomamary ann on 02-06-2023 Chloride [Moles/Vol] 105 mmol/L Normal 98-107 [facility] Comment on above: Order Comment: for m uscle spasms, I let the charge @rn, she is going to let hany huitron pls. Performed By: #### L ACTIC, HS TROP #### [facility] [address] Creatinine [Mass/volume] in Serum or PlasmaOrdered By: Ray Floresomar on 02-06-2023 Creatinine [Mass/Vol] 0.84 mg/dL Normal 0.70-1.30 [facility] Comment on above: Order Comment: for m uscle spasms, I let the charge @rn, she is going to let hany huitron pls. Performed By: #### L ACTIC, HS TROP #### [address] Erythrocyte distribution wid th [Ratio] by Automated countOrdered By: Ray Betancourt on 02-06-2023 Erythrocyte distribution width (RBC) [Ratio] 14.8 % Normal 12.0-14.8 [facility] Comment on above: Order Comment: for m uscle spasms, I let the charge @rn, she is going to let hany huitron pls. Performed By: #### L ACTIC, HS TROP #### [facility] [address] [place] [address] [place] Erythrocytes [#/volume] in B lood by Automated countOrdered By: Ray Betancourt on 02-06-2023 RBC (Bld) [#/Vol] 4.42 10*6/uL Normal 3.90-5.60 [facility] Comment on above: Order Comment: for m uscle spasms, I let the charge @rn, she is going to let hany huitronpls. Performed By: #### L ACTIC, HS TROP #### [facility] [address] [place] [address] [place] Glucose [Mass/volume] in Ser um or PlasmaOrdered By: Ray Betancourt on 02-06-2023 Glucose [Mass/Vol] 125 mg/dL High 70-100 [facility] Comment on above: ADA recommended refe rence rangeRandom Glucose Reference Range is dependent on time and content of last meal. Glucose of more than 200 mg/dL in a nonstressed, ambulatory subject supports the diagnosis of Diabetes Mellitus. Order Comment: for wendy nelson spasms, I let the charge @rn, she is going to let hany huitronpls. Result Comment: [place] Glucose Reference Range is dependent on time and content of last meal. Glucose of more than 200 mg/dL in a nonstressed, ambulatory subject supports the diagnosis of Diabetes Mellitus. ADA recommended reference range Performed By: #### L ACTIC, HS TROP #### [facility] [address] [place] [address] [place] Hematocrit [Volume Fraction] of Blood by Automated countOrdered By: Ray Betancourt on 02-06-2023 Hematocrit (Bld) [Volume fraction] 37.0 % Low 38.8-50.0 [facility] Comment on above: Order Comment: for wendy nelson spasms, I let the charge @rn, she is going to let hany huitronpls. Performed By: #### L ACTIC, HS TROP #### [facility] [address] [place] [address] [place] Hemoglobin [Mass/volume] in BloodOrdered By: Ray Betancourt on 02-06-2023 Hemoglobin (Bld) [Mass/Vol] 12.1 g/dL Low 13.0-17.0 [facility] Comment on above: Order Comment: for wendy nelson spasms, I let the charge @rn, she is going to let hany huitronpls. Performed By: #### L ACTIC, HS TROP #### [facility] [address] [place] [address] [place] Leukocytes [#/volume] correc mayte for nucleated erythrocytes in Blood by Automated counOrdered By: Ray Gainesr on 02-06-2023 WBC corrected for nucl RBC Auto (Bld) [#/Vol] 2.7 10*3/uL 4.1-10.5 [facility] Leukocytes [#/volume] in Blo od by Automated countOrdered By: Obbrandondah Daromar on 02-06-2023 WBC (Bld) [#/Vol] 2.7 10*3/uL Low 4.1-10.5 [facility] Comment on above: Order Comment: for m uscle spasms, I let the charge @rn, she is going to let rn lila huitron,pls. Performed By: #### L ACTIC, HS TROP #### [facility] [address] [place] [address] [place] Lymphocytes [#/volume] in Bl ood by Automated countOrdered By: Obbrandondachris Daromar on 02-06-2023 Lymphocytes (Bld) [#/Vol] 1.4 10*3/uL Normal 1.00-4.8 [facility] Comment on above: Order Comment: for m uscle spasms, I let the charge @rn, she is going to let rn lila huitron,pls. Performed By: #### L ACTIC, HS TROP #### [facility] [address] [place] [address] [place] Lymphocytes/100 leukocytes i n Blood by Automated countOrdered By: Tiannadachris Floresomar on 02-06-2023 Lymphocytes/100 WBC (Bld) 51.3 % Normal . [facility] Comment on above: Order Comment: for m uscle spasms, I let the charge @rn, she is going to let rn lila huitron,pls. Performed By: #### L ACTIC, HS TROP #### [facility] [address] [place], [place] [id number] [place] MCH [Entitic mass] by Automa mayte countOrdered By: Obbrandondah Daromar on 02-06-2023 MCH (RBC) [Entitic mass] 27.4 pg Low 27.5-35.2 [facility] Comment on above: Order Comment: for m uscle spasms, I let the charge @rn, she is going to let hany huitronpls. Performed By: #### L ACTIC, HS TROP #### [facility] [address] MCHC Auto (RBC) [Mass/Vol]Or dered By: Ray Floresomar on 02-06-2023 MCHC (RBC) [Mass/Vol] 32.8 g/dL 32.5-35.6 [facility] MCV [Entitic volume] by Auto mated countOrdered By: Ray Gainesr on 02-06-2023 MCV (RBC) [Entitic vol] 83.5 fL Normal 83.5-101 F [facility] Comment on above: Order Comment: for wendy nelson spasms, I let the charge @rn, she is going to let hany huitronpls. Performed By: #### L ACTIC, HS TROP #### [facility] [address] [place] [address] Neutrophils [#/volume] in Bl ood by Automated countOrdered By: Ray Betancourt on 02-06-2023 Neutrophils (Bld) [#/Vol] 0.8 10*3/uL Low 1.8-7.7 [facility] Comment on above: Order Comment: for wendy nelson spasms, I let the charge @rn, she is going to let hany huitronpls. Performed By: #### L ACTIC, HS TROP #### [facility] [address] [place] [address] No Panel InformationOrdered By: Ray Betancourt on 02-06-2023 Estimated GFR (CKD-EPI) > 60.0 mL/Min [facility] Creatinine Clearance (Chem 87.63 [facility] Nucleated erythrocytes [Pres ence] in Blood by Automated countOrdered By: Ray Betancourt on 02-06-2023 Nucleated RBC Auto Ql (Bld) 0.3 /100{WBC} 0-0.5 [facility] Platelet adequacy [Presence] in Blood by Light microscopyOrdered By: Ray Betancourt on 02-06-2023 Platelets LM Ql (Bld) Normal Normal [facility] Platelet mean volume [Entiti c volume] in Blood by Automated countOrdered By: Tiannadachris Floresomar on 02-06-2023 Platelet mean volume (Bld) [Entitic vol] 7.2 fL Normal 6.6-10.1 [facility] Comment on above: Order Comment: for m uscle spasms, I let the charge @rn, she is going to let hany huitron,pls. Performed By: #### L ACTIC, HS TROP #### [facility] [address] Platelet morphology finding [Identifier] in BloodOrdered By: Ray Floresomar on 02-06-2023 Platelet morphology finding Nom (Bld) Normal Normal [facility] Platelets [#/volume] in Bloo d by Automated countOrdered By: Ray Floresomar on 02-06-2023 Platelets (Bld) [#/Vol] 277 10*3/uL Normal 150-450 [facility] Comment on above: Order Comment: for m uscle spasms, I let the charge @rn, she is going to let rn lila huitron,pls. Performed By: #### L ACTIC, HS TROP #### [facility] [address] [place] [address] [place] Potassium [Moles/volume] in Serum or PlasmaOrdered By: Ray Floresomar on 02-06-2023 Potassium [Moles/Vol] 4.3 mmol/L Normal 3.5-5.1 [facility] Comment on above: Order Comment: for m uscle spasms, I let the charge @rn, she is going to let rn lila huitron,pls. Performed By: #### L ACTIC, HS TROP #### [facility] [address] [place] [address] [place] RBC morphologyOrdered By: Ob brandondachris Floresomar on 02-06-2023 RBC morphology finding Nom (Bld) Normal Normal Normal [facility] Comment on above: Order Comment: for m uscle spasms, I let the charge @rn, she is going to let hany huitron,pls. Performed By: #### L ACTIC, HS TROP #### [address] Scan and CBCon 02-06-2023 Mean Corpuscular HGB Conc 32.8 g/dL Normal 32.5-35.6 [facility] Comment on above: Order Comment: for wendy uscle spasms, I let the charge @rn, she is going to let hany huitron,pls. Performed By: #### L ACTIC, HS TROP #### [address] NRBC% 0.3 /100{WBC} Normal 0-0.[address] [facility] Comment on above: Order Comment: for wendy uscle spasms, I let the charge @rn, she is going to let hany huitron,pls. Performed By: #### L ACTIC, HS TROP #### [address] Platelet Estimate Normal Normal Normal [facility] Comment on above: Order Comment: for wendy uscle spasms, I let the charge @rn, she is going to let hany huitron,pls. Performed By: #### L ACTIC, HS TROP #### [address] Platelet Morphology Normal Normal Normal [facility] Comment on above: Order Comment: for wendy uscle spasms, I let the charge @rn, she is going to let hany huitron,pls. Result Comment: PERF ORMED BY: [place] [address] PATHOLOGIST MANAGER [employer] RENETTA MONACO M.D. Performed By: #### L ACTIC, HS TROP #### [address] Serum or plasma anion gap de terminationOrdered By: Ray Betancourt on 02-06-2023 Anion gap [Moles/Vol] 8.4 mmol/L Normal 6.0-15.0 [facility] Comment on above: Order Comment: for m uscle spasms, I let the charge @rn, she is going to let rn lila huitronpls. Performed By: #### L ACTIC, HS TROP #### [facility] [address] [place] [address] [place] Sodium [Moles/volume] in Ser um or PlasmaOrdered By: Obaydah Daromar on 02-06-2023 Sodium [Moles/Vol] 134 mmol/L Low 136-145 [facility] Comment on above: Order Comment: for wendy uscle spasms, I let the charge @rn, she is going to let rn lila huitronpls. Performed By: #### L ACTIC, HS TROP #### [facility] [address] [place] [address] [place] Urea nitrogen [Mass/volume] in Serum or PlasmaOrdered By: Obaydah Daromar on 02-06-2023 Urea nitrogen [Mass/Vol] 11 mg/dL Normal 7-25 [facility] Comment on above: Order Comment: for wendy uscle spasms, I let the charge @rn, she is going to let rn lila huitronpls. Performed By: #### L ACTIC, HS TROP #### [facility] [address] [place] [address] [place] Alanine aminotransferase [En zymatic activity/volume] in Serum or PlasmaOrdered By: Obbrandondah Daromar on 02-05-2023 ALT [Catalytic activity/Vol] 5 U/L Low 7-52 [facility] Comment on above: Performed By: #### B MP, CBC #### [facility] [address] [place] [address] [place] Albumin [Mass/volume] in Ser um or Plasma by Bromocresol green (BCG) dye binding methoOrdered By: Obaydah Daromar on 02-05-2023 Albumin BCG dye [Mass/Vol] 3.7 g/dL 3.5-5.7 [facility] Alkaline phosphatase [Enzyma tic activity/volume] in Serum or PlasmaOrdered By: Obaydah Daromar on 02-05-2023 ALP [Catalytic activity/Vol] 43 U/L Normal 34-104 [facility] Comment on above: Performed By: #### B MP, CBC #### [address] Aspartate aminotransferase [ Enzymatic activity/volume] in Serum or PlasmaOrdered By: Obaydah Daromar on 02-05-2023 AST [Catalytic activity/Vol] 10 U/L Low 13-39 [facility] Comment on above: Performed By: #### B MP, CBC #### [address] Bilirubin.total [Mass/volume ] in Serum or PlasmaOrdered By: Obaydah Daromar on 02-05-2023 Bilirubin [Mass/Vol] 0.4 mg/dL Normal 0.3-1.0 [facility] Comment on above: Performed By: #### B MP, CBC #### [address] Complete Blood Count Auto Di ffon 02-05-2023 Basophils (Bld) [#/Vol] 0.0 10*3/uL Normal 0.0-0.2 [facility] Comment on above: Result Comment: PERF ORMED BY: [place] [address] PATHOLOGIST MANAGER [employer] RENETTA MONACO M.D. Performed By: #### B MP, CBC #### [address] Basophils/100 WBC (Bld) 1.0 % Normal . T lillian [facility] Comment on above: Performed By: #### B MP, CBC #### [place] [address] [place] Eosinophils (Bld) [#/Vol] 0.2 10*3/uL Normal 0.0-0.45 [facility] Comment on above: Performed By: #### B MP, CBC #### [place] [address] [place] Eosinophils/100 WBC (Bld) 7.1 % Normal . [facility] Comment on above: Performed By: #### B MP, CBC #### [address] Erythrocyte distribution width (RBC) [Ratio] 14.8 % Normal 12.0-14.8 [facility] Comment on above: Performed By: #### B MP, CBC #### [address] Hematocrit (Bld) [Volume fraction] 35.5 % Low 38.8-50.0 [facility] Comment on above: Performed By: #### B MP, CBC #### [address] Hemoglobin (Bld) [Mass/Vol] 11.7 g/dL Low 13.0-17.0 [facility] Comment on above: Performed By: #### B MP, CBC #### [address] Lymphocytes (Bld) [#/Vol] 1.4 10*3/uL Normal 1.00-4.8 [facility] Comment on above: Performed By: #### B MP, CBC #### [address] Lymphocytes/100 WBC (Bld) 44.0 % Normal . [facility] Comment on above: Performed By: #### B MP, CBC #### [address] MCH (RBC) [Entitic mass] 27.5 pg Normal 27.5-35.2 [facility] Comment on above: Performed By: #### B MP, CBC #### [address] MCV (RBC) [Entitic vol] 83.0 fL Low 83.5-101 [facility] Comment on above: Performed By: #### B MP, CBC #### [address] Mean Corpuscular HGB Conc 33.1 g/dL Normal 32.5-35.6 [facility] Comment on above: Performed By: #### B MP, CBC #### [address] [address] [place] Monocytes (Bld) [#/Vol] 0.3 10*3/uL Normal 0.0-0.8 [facility] Comment on above: Performed By: #### B MP, CBC #### [address] Monocytes/100 WBC (Bld) 8.1 % Normal . [facility] Comment on above: Performed By: #### B MP, CBC #### [address] Neutrophils (Bld) [#/Vol] 1.2 10*3/uL Low 1.8-7.7 [facility] Comment on above: Performed By: #### B MP, CBC #### [address] Neutrophils/100 WBC (Bld) 39.8 % Normal . [facility] Comment on above: Performed By: #### B MP, CBC #### [address] NRBC% 0.1 /100{WBC} Normal 0-0.[address] [facility] Comment on above: Performed By: #### B MP, CBC #### [address] Platelet mean volume (Bld) [Entitic vol] 7.5 fL Normal 6.6-10.1 [facility] Comment on above: Performed By: #### B MP, CBC #### [place] [address] [place] Platelets (Bld) [#/Vol] 318 10*3/uL Normal 150-450 [facility] Comment on above: Performed By: #### B MP, CBC #### [place] [address] [place] RBC (Bld) [#/Vol] 4.27 10*6/uL Normal 3.90-5.60 [facility] Comment on above: Performed By: #### B MP, CBC #### [place] [id number] [place] WBC (Bld) [#/Vol] 3.1 10*3/uL Low 4.1-10.5 [facility] Comment on above: Performed By: #### B MP, CBC #### [address] Comprehensive Metabolic Pane kimberly 02-05-2023 Albumin [Mass/Vol] 3.7 g/dL Normal 3.5-5.7 [facility] Comment on above: Performed By: #### B MP, CBC #### [address] Anion gap [Moles/Vol] 8.1 mmol/L Normal 6.0-15.0 [facility] Comment on above: Performed By: #### B MP, CBC #### [address] Calcium [Mass/Vol] 8.9 mg/dL Normal 8.6-10.3 [facility] Comment on above: Performed By: #### B MP, CBC #### [address] Chloride [Moles/Vol] 106 mmol/L Normal 98-107 [facility] Comment on above: Performed By: #### B MP, CBC #### [address] CO2 [Moles/Vol] 27.0 mmol/L Normal 21.0-31.0 [facility] Comment on above: Performed By: #### B MP, CBC #### [address] Creatinine [Mass/Vol] 0.78 mg/dL Normal 0.70-1.30 [facility] Comment on above: Performed By: #### B MP, CBC #### [address] Creatinine Clr Calc Pharmacy 93.66 Normal [facility] Comment on above: Result Comment: PERF ORMED BY: [place] [address] PATHOLOGIST MANAGER [employer] RENETTA MONACO M.D. Performed By: #### B MP, CBC #### [facility] [address] [place] [address] [place] GFR/1.73 sq M.predicted MDRD (S/P/Bld) [Vol rate/Area] mL/min/{1.73_m2} Normal [facility] Comment on above: Performed By: #### B MP, CBC #### [address] Glucose [Mass/Vol] 98 mg/dL Normal 70-100 [facility] Comment on above: Result Comment: [facility] Glucose Reference Range is dependent on time and content of last meal. Glucose of more than 200 mg/dL in a nonstressed, ambulatory subject supports the diagnosis of Diabetes Mellitus. ADA recommended reference range Performed By: #### B MP, CBC #### [address] Potassium [Moles/Vol] 4.1 mmol/L Normal 3.5-5.1 [facility] Comment on above: Performed By: #### B MP, CBC #### [address] Sodium [Moles/Vol] 137 mmol/L Normal 136-145 [facility] Comment on above: Performed By: #### B MP, CBC #### [address] Urea nitrogen [Mass/Vol] 9 mg/dL Normal 7-25 [facility] Comment on above: Performed By: #### B MP, CBC #### [place] [address] [place] Protein [Mass/volume] in Ser um or PlasmaOrdered By: Ray Betancourt on 02-05-2023 Protein [Mass/Vol] 6.3 g/dL Low 6.4-8.9 [facility] Comment on above: Performed By: #### B MP, CBC #### [address] Serum globulin measurement b y calculation (mass/volume)Ordered By: Obsal Betancourt on 02-05-2023 Globulin (S) [Mass/Vol] 2.6 g/dL Normal F [facility] Comment on above: Performed By: #### B MP, CBC #### [address] Serum or plasma albumin/glob ulin mass ratioOrdered By: Obbrandondachris Daromar on 02-05-2023 Albumin/Globulin [Mass ratio] 1.4 {ratio} Normal [facility] Comment on above: Performed By: #### B MP, CBC #### [address] Automated basophil %Ordered By: Christin Manzanares on 02-03-2023 Basophils/100 WBC (Bld) 0.6 % Normal . F [facility] Comment on above: Performed By: #### C BC, BMP #### [address] Automated basophil countOrde red By: Christin Manzanares on 02-03-2023 Basophils (Bld) [#/Vol] 0.0 10*3/uL Normal 0.0-0.2 [facility] Comment on above: Result Comment: PERF ORMED BY: [place] [address] PATHOLOGIST MANAGER [employer] RENETTA MONACO M.D. Performed By: #### C BC, BMP #### [address] Automated blood monocyte cou ntOrdered By: Christin Manzanares on 02-03-2023 Monocytes (Bld) [#/Vol] 0.5 10*3/uL Normal 0.0-0.8 [facility] Comment on above: Performed By: #### C BC, BMP #### [address] Automated eosinophil %Ordere d By: Christin Manzanares on 02-03-2023 Eosinophils/100 WBC (Bld) 4.0 % Normal . [facility] Comment on above: Performed By: #### C BC, BMP #### [facility] [address] Automated eosinophil countOr dered By: Christin Manzanares on 02-03-2023 Eosinophils (Bld) [#/Vol] 0.2 10*3/uL Normal 0.0-0.45 [facility] Comment on above: Performed By: #### C BC, BMP #### [address] Automated epithelial cells c ount in urine sediment (number/area)Ordered By: Christin Manzanares on 02-03-2023 Epithelial cells Auto (Urine sed) [#/Area] 0-1 [HPF] 0-2 [facility] Automated erythrocytes count in urine sediment (number/area)Ordered By: Christin Manzanares on 02-03-2023 RBC Auto (Urine sed) [#/Area] 5-9 [HPF] 0-4 [facility] Automated leukocytes count i n urine sediment (number/area)Ordered By: Christin Manzanares on 02-03-2023 WBC Auto (Urine sed) [#/Area] 20-49 [HPF] 0-4 [facility] Automated monocyte %Ordered By: Christin Manzanares on 02-03-2023 Monocytes/100 WBC (Bld) 8.1 % Normal . F [facility] Comment on above: Performed By: #### C BC, BMP #### [address] Automated neutrophil %Ordere d By: Christin Manzanares on 02-03-2023 Neutrophils/100 WBC (Bld) 58.6 % Normal . [facility] Comment on above: Performed By: #### C BC, BMP #### [address] Automated urine color determ inationOrdered By: Christin Manzanares on 02-03-2023 Color (U) Yellow Normal Yellow [facility] Comment on above: Order Comment: Name Collection Type:: Hernandez Catheter Performed By: #### C UU, ADDONUAPLUS #### [address] Automated urine hyaline cast s count (number/volume)Ordered By: Christin Manzanares on 02-03-2023 Hyaline casts Auto (U) [#/Vol] None seen [LPF] 0-1 [facility] Automated urine sediment alice cium oxalate crystal count by microscopy (number/high powOrdered By: Christin Manzanares on 02-03-2023 Calcium oxalate crystals LM.HPF (Urine sed) [#/Area] Rare [HPF] [facility] Basic Metabolic Panelon Creatinine Clr Calc Pharmacy 95.43 Normal [facility] Comment on above: Result Comment: PERF ORMED BY: [place] [address] PATHOLOGIST MANAGER [employer] RENETTA MONACO M.D. Performed By: #### C BC, BMP #### [facility] [address] [place] [address] GFR/1.73 sq M.predicted MDRD (S/P/Bld) [Vol rate/Area] mL/min/{1.73_m2} Normal [facility] Comment on above: Performed By: #### C BC, BMP #### [facility] [address] [place] [address] Bilirubin Test strip Ql (U)O rdered By: Christin Manzanares on 02-03-2023 Bilirubin Ql (U) Negative Negative [facility] CNOVon 02-03-2023 CNOV Normal [facility] CT abdomen pelvis wo conon 1 04-05-2022 CT abdomen pelvis wo con [facility] [place] [address] [place] [address] CT Scan Report Signed Patient: Fede Guerra MR#: [id number] : 1955 Acct:[id number] Age/Sex: 67 / M ADM Date: 02/03/23 Loc: ER Room: Type: [facility] ER Attending Dr: Copies to: Christin Manzanares [...] Christie Durán M.D.02/03/2023 8:36 PM Dictation Location: [place] [address] Transcribed By: [facility] 02/03/232035 Dictated By: Christie Durán MD 02/03/232026 Signed By: 02/03/232035 Normal [facility] Calcium [Mass/volume] in Ser um or PlasmaOrdered By: Christin Manzanares on 02-03-2023 Calcium [Mass/Vol] 9.0 mg/dL Normal 8.6-10.3 [facility] Comment on above: Performed By: #### C BC, BMP #### [address] Carbon dioxide, total [Moles /volume] in Serum or PlasmaOrdered By: Christinsasha Manzanares on 02-03-2023 CO2 [Moles/Vol] 25.3 mmol/L Normal 21.0-31.0 [facility] Comment on above: Performed By: #### C BC, BMP #### [address] Chloride [Moles/volume] in S jennifer or PlasmaOrdered By: Christin Manzanares on 02-03-2023 Chloride [Moles/Vol] 108 mmol/L High 98-107 [facility] Comment on above: Performed By: #### C BC, BMP #### [address] Complete Blood Count Auto Di ffon 02-03-2023 Mean Corpuscular HGB Conc 33.1 g/dL Normal 32.5-35.6 [facility] Comment on above: Performed By: #### C BC, BMP #### [place] [address] [place] Monocytes/100 WBC (Bld) 19.15 % Normal 0.00-20.00 [facility] [facility] Comment on above: Performed By: #### C BC, BMP #### [place] [address] [place] NRBC% 0.1 /100{WBC} Normal 0-0.[address] [facility] Comment on above: Performed By: #### C BC, BMP #### [address] Creatinine [Mass/volume] in Serum or PlasmaOrdered By: Christin Manzanares on 02-03-2023 Creatinine [Mass/Vol] 0.70 mg/dL Normal 0.70-1.30 [facility] Comment on above: Performed By: #### C BC, BMP #### [place] [address] [place] Dipstick and Microscopicon 1 04-05-2022 Appearance (U) Clear Normal Clear [facility] Comment on above: Order Comment: Name Collection Type:: Hernandez Catheter Performed By: #### C UU, ADDONUAPLUS #### [place] [address] [place] Bacteria,Urine 4+ High None Seen [facility] Comment on above: Order Comment: Name Collection Type:: Hernandez Catheter Performed By: #### C UU, ADDONUAPLUS #### [place] [address] [place] Bilirubin,Urine Negative Normal Negative [facility] Comment on above: Order Comment: Name Collection Type:: Hernandez Catheter Performed By: #### C UU, ADDONUAPLUS #### [address] Calcium Oxalate Crystals,Urine Rare Normal [facility] Comment on above: Order Comment: Name Collection Type:: Hernandez Catheter Performed By: #### C UU, ADDONUAPLUS #### [address] Glucose Ql (U) Normal Normal Normal [facility] Comment on above: Order Comment: Name Collection Type:: Hernandez Catheter Performed By: #### C UU, ADDONUAPLUS #### [place] [address] [place] Hyaline Casts,Urine None Seen Normal 0-1 [facility] Comment on above: Order Comment: Name Collection Type:: Hernandez Catheter Result Comment: PERF ORMED BY: [place] [address] PATHOLOGIST MANAGER [employer] RENETTA MONACO M.D. Performed By: #### C UU, ADDONUAPLUS #### [address] Ketones Ql (U) Negative Normal Negative [facility] Comment on above: Order Comment: Name Collection Type:: Hernandez Catheter Performed By: #### C UU, ADDONUAPLUS #### [address] Leukocyte esterase Test strip Ql (U) 4+ High Negative [facility] Comment on above: Order Comment: Name Collection Type:: Hernandez Catheter Performed By: #### C UU, ADDONUAPLUS #### [place] [address] [place] Nitrite,Urine Positive High Negative [facility] Comment on above: Order Comment: Name Collection Type:: Hernandez Catheter Performed By: #### C UU, ADDONUAPLUS #### [address] Occult Blood,Urine 1+ High Negative [facility] Comment on above: Order Comment: Name Collection Type:: Hernandez Catheter Result Comment: PERF ORMED BY: [place] [address] PATHOLOGIST MANAGER [employer] RENETTA MONACO M.D. Performed By: #### C UU, ADDONUAPLUS #### [place] [address] [place] Protein,Urine Negative Normal Negative [facility] Comment on above: Order Comment: Name Collection Type:: Hernandez Catheter Performed By: #### C UU, ADDONUAPLUS #### [address] RBC,Urine 5-9 High 0-4 [facility] Comment on above: Order Comment: Name Collection Type:: Hernandez Catheter Performed By: #### C UU, ADDONUAPLUS #### [place] [address] [place] Specificy [place],Urine 1.005 Normal 1.001-1.030 [facility] Comment on above: Order Comment: Name Collection Type:: Hernandez Catheter Performed By: #### C UU, ADDONUAPLUS #### [place] [address] [place] Squamous Epithelial Cell,Urine 0-1 Normal 0-2 [facility] Comment on above: Order Comment: Name Collection Type:: Hernandez Catheter Performed By: #### C UU, ADDONUAPLUS #### [facility] [address] Urobilinogen,Urine Normal Normal Normal [facility] Comment on above: Order Comment: Name Collection Type:: Hernandez Catheter Performed By: #### C UU, ADDONUAPLUS #### [facility] [address] WBC,Urine 20-49 High 0-4 [facility] Comment on above: Order Comment: Name Collection Type:: Hernandez Catheter Performed By: #### C UU, ADDONUAPLUS #### [facility] [address] [place] [address] ECG 12 lead ECGon 02-03-2023 ECG 12 lead ECG [facility] [place] [address] [place] [address] Electrocardiograph Report Signed Patient: Fede Guerra MR#: [id number] : 1955 Acct:[id number] Age/Sex: 67 / M ADM Date: 02/03/23 Loc: ER Room: Type: [facility] ER Attending Dr: Ordering Provider: Christin Manzanares [...] Sinus tachycardia Confirmed by Leighton OAKLEY DO ([id number]) on 02/03/2023 8:08:15 PM Referred By: Electronically Signed By:Leighton OAKLEY DO Transcribed By: MUS Signed By Leighton Oakley DO 04/05/22 2008 Normal [facility] Erythrocyte distribution wid th [Ratio] by Automated countOrdered By: Christin Manzanares on 02-03-2023 Erythrocyte distribution width (RBC) [Ratio] 14.5 % Normal 12.0-14.8 [facility] Comment on above: Performed By: #### C BC, BMP #### [facility] [address] Erythrocytes [#/volume] in B lood by Automated countOrdered By: Christin Manzanares on 02-03-2023 RBC (Bld) [#/Vol] 4.40 10*6/uL Normal 3.90-5.60 [facility] Comment on above: Performed By: #### C PETEY, BMP #### [facility] [address] Glucose [Mass/volume] in Ser um or PlasmaOrdered By: Christin Manzanares on 02-03-2023 Glucose [Mass/Vol] 115 mg/dL High 70-100 [facility] Comment on above: ADA recommended refe rence rangeRandom Glucose Reference Range is dependent on time and content of last meal. Glucose of more than 200 mg/dL in a nonstressed, ambulatory subject supports the diagnosis of Diabetes Mellitus. Result Comment: [place] om Glucose Reference Range is dependent on time and content of last meal. Glucose of more than 200 mg/dL in a nonstressed, ambulatory subject supports the diagnosis of Diabetes Mellitus. ADA recommended reference range Performed By: #### C PETEY, BMP #### [address] Hematocrit [Volume Fraction] of Blood by Automated countOrdered By: Christin Manzanares on 02-03-2023 Hematocrit (Bld) [Volume fraction] 36.4 % Low 38.8-50.0 [facility] Comment on above: Performed By: #### C PETEY, BMP #### [address] Hemoglobin [Mass/volume] in BloodOrdered By: Christin Manzanares on 02-03-2023 Hemoglobin (Bld) [Mass/Vol] 12.0 g/dL Low 13.0-17.0 [facility] Comment on above: Performed By: #### C BC, BMP #### [address] Ketones Auto test strip (U) [Mass/Vol]Ordered By: Christin Manzanares on 02-03-2023 Ketones (U) [Mass/Vol] Negative Negative [facility] Lactate [Moles/volume] in Se rum or PlasmaOrdered By: Christin Manzanares on 02-03-2023 Lactate [Moles/Vol] 0.8 mmol/L Normal 0.5-2.2 [facility] Comment on above: Result Comment: PERF ORMED BY: [place] [address] PATHOLOGIST MANAGER [employer] RENETTA OMNACO M.D. Performed By: #### B MP, CBC #### [place] [address] [place] Leukocytes [#/volume] correc mayte for nucleated erythrocytes in Blood by Automated counOrdered By: Christin Manzanares on 02-03-2023 WBC corrected for nucl RBC Auto (Bld) [#/Vol] 6.1 10*3/uL 4.1-10.5 [facility] Leukocytes [#/volume] in Blo od by Automated countOrdered By: Christin Manzanares on 02-03-2023 WBC (Bld) [#/Vol] 6.1 10*3/uL Normal 4.1-10.5 [facility] Comment on above: Performed By: #### C BC, BMP #### [place] [address] [place] Lymphocytes [#/volume] in Bl ood by Automated countOrdered By: Christin Manzanares on 02-03-2023 Lymphocytes (Bld) [#/Vol] 1.8 10*3/uL Normal 1.00-4.8 [facility] Comment on above: Performed By: #### C BC, BMP #### [place] [address] [place] Lymphocytes/100 leukocytes i n Blood by Automated countOrdered By: Christinsasha Manzanares on 02-03-2023 Lymphocytes/100 WBC (Bld) 28.7 % Normal . [facility] Comment on above: Performed By: #### C BC, BMP #### [place] [address] [place] MCH [Entitic mass] by Automa mayte countOrdered By: Christin Manzanares on 02-03-2023 MCH (RBC) [Entitic mass] 27.4 pg Low 27.5-35.2 [facility] Comment on above: Performed By: #### C PETEY, JOSE #### [facility] [address] [place] [address] MCHC Auto (RBC) [Mass/Vol]Or dered By: Christin Manzanares on 02-03-2023 MCHC (RBC) [Mass/Vol] 33.1 g/dL 32.5-35.6 [facility] MCV [Entitic volume] by Auto mated countOrdered By: Christin Manzanares on 02-03-2023 MCV (RBC) [Entitic vol] 82.8 fL Low 83.5-101 F [facility] Comment on above: Performed By: #### C PETEY, BMP #### [facility] [address] [place] [address] Monocyte distribution width [Entitic volume] in Blood by AutomatedOrdered By: Christin Manzanares on 02-03-2023 Monocyte distribution width Auto (Bld) [Entitic vol] 19.15 % 0.00-20.00 [facility] Neutrophils [#/volume] in Bl ood by Automated countOrdered By: Christin Manzanares on 02-03-2023 Neutrophils (Bld) [#/Vol] 3.6 10*3/uL Normal 1.8-7.7 [facility] Comment on above: Performed By: #### C PETEY, BMP #### [facility] [address] [place] [address] Nitrite Test strip Ql (U)Ord ered By: Christin Manzanares on 02-03-2023 Nitrite Ql (U) Positive Negative [facility] No Panel InformationOrdered By: Christin Manzanares on 02-03-2023 Estimated GFR (CKD-EPI) > 60.0 mL/Min [facility] Creatinine Clearance (Chem 95.43 [facility] Nucleated erythrocytes [Pres ence] in Blood by Automated countOrdered By: Christin Manzanares on 02-03-2023 Nucleated RBC Auto Ql (Bld) 0.1 /100{WBC} 0-0.5 [facility] Platelet mean volume [Entiti c volume] in Blood by Automated countOrdered By: Christin Manzanares on 02-03-2023 Platelet mean volume (Bld) [Entitic vol] 7.1 fL Normal 6.6-10.1 [facility] Comment on above: Performed By: #### C BC, BMP #### [facility] [address] Platelets [#/volume] in Bloo d by Automated countOrdered By: Christin Manzanares on 02-03-2023 Platelets (Bld) [#/Vol] 307 10*3/uL Normal 150-450 [facility] Comment on above: Performed By: #### C BC, BMP #### [address] Potassium [Moles/volume] in Serum or PlasmaOrdered By: Christin Manzanares on 02-03-2023 Potassium [Moles/Vol] 4.0 mmol/L Normal 3.5-5.1 [facility] Comment on above: Performed By: #### C BC, BMP #### [address] Protein Auto test strip (U) [Mass/Vol]Ordered By: Christin Manzanares on 02-03-2023 Protein (U) [Mass/Vol] Negative Negative [facility] Serum or plasma anion gap de terminationOrdered By: Christin Manzanares on 02-03-2023 Anion gap [Moles/Vol] 8.7 mmol/L Normal 6.0-15.0 [facility] Comment on above: Performed By: #### C BC, BMP #### [place] [id number] [place] Sodium [Moles/volume] in Ser um or PlasmaOrdered By: Christin Manzanares on 02-03-2023 Sodium [Moles/Vol] 138 mmol/L Normal 136-145 [facility] Comment on above: Performed By: #### C BC, BMP #### [place] [address] [place] Specific gravity Auto test s trip (U) [Rel density]Ordered By: Christin Manzanares on 02-03-2023 Specific gravity (U) [Rel density] 1.005 1.001-1.030 [facility] Urea nitrogen [Mass/volume] in Serum or PlasmaOrdered By: Christin Manzanares on 02-03-2023 Urea nitrogen [Mass/Vol] 11 mg/dL Normal 7-25 [facility] Comment on above: Performed By: #### C , BMP #### [address] Urine Cultureon 02-03-2023 Bacteria identified Cx Nom (U) ORGANISM: Klebsiella pneumoniae (ESBL) (O:KLEPNEESBL) [place] Count >100,000 Aerobic SCOTT Charge (NMIC56) ----- [...] EXTENDED SPECTRUM BETA-LACTAMASE TFG = THYMIDINE-DEPENDENT STRAIN ERAMSO = BETA-LACTAMASE POSITIVE IB = INDUCIBLE BETA-LACTAMASE. APPEARS IN PLACE OF 'S' WITH SPECIES KNOWN TO POSSESS INDUCIBLE BETA-LACTAMASES. POTENTIALLY THEY MAY BECOME RESISTANT TO ALL B-LACTAM DRUGS. PERFORMED BY: [facility] [address] [place] [phone] PATHOLOGIST MANAGER [employer] RENETTA MONACO M.D. Normal [facility] Comment on above: Performed By: #### C EDILSON ROBLEDOPLUS #### [facility] [address] [place] [address] Urine bacteria detection by automated methodOrdered By: Christin Manzanares on 02-03-2023 Bacteria Auto Ql (U) 4+ None Seen [facility] Urine clarity by refractomet ry automatedOrdered By: Christin Manzanares on 02-03-2023 Clarity Refractometry automated (U) Clear Clear [facility] Urine culture routineOrdered By: Christin Manzanares on 02-03-2023 Bacteria identified Cx Nom (U) Klebsiella pneumoniae (ESBL) [facility] Urine glucose measurement by automated test strip (mass/volume)Ordered By: Christin Manzanares on 02-03-2023 Glucose Auto test strip (U) [Mass/Vol] Normal mg/dL Normal [facility] Urine hemoglobin detection b y automated test stripOrdered By: Christin Manzanares on 02-03-2023 Hemoglobin Auto test strip Ql (U) 1+ Negative [facility] Urine leukocyte esterase det ection by automated test stripOrdered By: Christin Manzanares on 02-03-2023 Leukocyte esterase Auto test strip Ql (U) 4+ Negative [facility] Urine pH measurement by auto mated test stripOrdered By: Christin Manzanares on 02-03-2023 pH (U) 6.5 [pH] Normal 5.0-9.0 [facility] Comment on above: Order Comment: Name Collection Type:: Hernandez Catheter Performed By: #### C EDILSON ROBLEDOPLUS #### [facility] [address] [place] [address] Urobilinogen Auto test strip (U) [Mass/Vol]Ordered By: Christin Manzanares on 02-03-2023 Urobilinogen (U) [Mass/Vol] Normal mg/dL Normal [facility] Bacteria Ur Culton 3 Bacteria identified Cx Nom (U) Abnormal [facility] Comment on above: Performed By: #### 6 30-4 ####[facility] [id number] [place] [id number] [place] CNOVon 01-10-2023 CNOV Normal [facility] CNPNon 12-23-2022 CNPN Normal [facility] CNOVon 12-16-2022 CNOV Normal [facility] CNPTOUTREACHon 12-16-2022 CNPTOUTREACH Normal [facility] US KIDNEY/BLADDERon 12-17-19 US KIDNEY/BLADDER Normal [facility] XR ABDOMEN 3V KUB W/OBLIQUES on 12-16-2022 XR ABDOMEN 3V KUB W/OBLIQUES Normal [facility] Amorphous urine sedimentOrde red By: Jun Gaona on 12-07-2022 Amorphous sediment LM Ql (Urine sed) 3+ [LPF] [facility] Automated basophil %Ordered By: Jun Gaona on 12-07-2022 Basophils/100 WBC (Bld) 1.5 % Normal . [facility] Comment on above: Performed By: #### B MP, CBC #### [address] Automated basophil countOrde red By: Jun Gaona on 12-07-2022 Basophils (Bld) [#/Vol] 0.1 10*3/uL Normal 0.0-0.2 [facility] Comment on above: Result Comment: PERF ORMED BY: [place] [address] PATHOLOGIST MANAGER [employer] RENETTA MONACO M.D. Performed By: #### B MP, CBC #### [facility] [address] Automated blood monocyte cou ntOrdered By: Jun Gaona on 12-07-2022 Monocytes (Bld) [#/Vol] 0.3 10*3/uL Normal 0.0-0.8 [facility] Comment on above: Performed By: #### B MP, CBC #### [facility] [address] Automated eosinophil %Ordere d By: Jun Gaona on 12-07-2022 Eosinophils/100 WBC (Bld) 7.5 % Normal . [facility] Comment on above: Performed By: #### B MP, CBC #### [facility] [address] Automated eosinophil countOr dered By: Jun Gaona on 12-07-2022 Eosinophils (Bld) [#/Vol] 0.3 10*3/uL Normal 0.0-0.45 [facility] Comment on above: Performed By: #### B MP, CBC #### [facility] [address] Automated epithelial cells c ount in urine sediment (number/area)Ordered By: Jun Gaona on 12-07-2022 Epithelial cells Auto (Urine sed) [#/Area] 1-2 [HPF] 0-2 [facility] Automated erythrocytes count in urine sediment (number/area)Ordered By: Jun Gaona on 12-07-2022 RBC Auto (Urine sed) [#/Area] 3-4 [HPF] 0-4 [facility] Automated leukocytes count i n urine sediment (number/area)Ordered By: Jun Gaona on 12-07-2022 WBC Auto (Urine sed) [#/Area] Innumerable [HPF] 0-4 [facility] Automated monocyte %Ordered By: Jun Gaona on 12-07-2022 Monocytes/100 WBC (Bld) 6.9 % Normal . [facility] Comment on above: Performed By: #### B MP, CBC #### [facility] [address] Automated neutrophil %Ordere d By: Jun Gaona on 12-07-2022 Neutrophils/100 WBC (Bld) 46.8 % Normal . [facility] Comment on above: Performed By: #### B MP, CBC #### [address] Automated urine color determ inationOrdered By: Jun Gaona on 12-07-2022 Color (U) Yellow Normal Yellow [facility] Comment on above: Order Comment: Name Collection Type:: Suprapubic Collection Performed By: #### C BC, BMP #### [address] Automated urine hyaline cast s count (number/volume)Ordered By: Jun Gaona on 12-07-2022 Hyaline casts Auto (U) [#/Vol] None seen [LPF] 0-1 [facility] Automated urine sediment alice cium oxalate crystal count by microscopy (number/high powOrdered By: uJn Gaona on 12-07-2022 Calcium oxalate crystals LM.HPF (Urine sed) [#/Area] 1+ [HPF] [facility] Basic Metabolic Panelon 11-26 Creatinine Clr Calc Pharmacy 89.68 Normal [facility] Comment on above: Result Comment: PERF ORMED BY: [place] [address] PATHOLOGIST MANAGER [employer] RENETTA MONACO M.D. Performed By: #### B MP, CBC #### [address] GFR/1.73 sq M.predicted MDRD (S/P/Bld) [Vol rate/Area] mL/min/{1.73_m2} Normal [facility] Comment on above: Performed By: #### B MP, CBC #### [address] Bilirubin Test strip Ql (U)O rdered By: Jun Gaona on 12-07-2022 Bilirubin Ql (U) Negative Negative [facility] Calcium [Mass/volume] in Ser um or PlasmaOrdered By: Jun Gaona on 12-07-2022 Calcium [Mass/Vol] 9.2 mg/dL Normal 8.6-10.3 [facility] Comment on above: Performed By: #### B MP, CBC #### [address] Carbon dioxide, total [Moles /volume] in Serum or PlasmaOrdered By: Jun Gaona on 12-07-2022 CO2 [Moles/Vol] 27.6 mmol/L Normal 21.0-31.0 [facility] Comment on above: Performed By: #### B MP, CBC #### [address] Casts typing in urine sedime nt by light microscopyOrdered By: Jun Gaona on 12-07-2022 Casts LM Nom (Urine sed) None seen [LPF] None Seen [facility] Chloride [Moles/volume] in S jennifer or PlasmaOrdered By: Jun Gaona on 12-07-2022 Chloride [Moles/Vol] 108 mmol/L High 98-107 [facility] Comment on above: Performed By: #### B MP, CBC #### [address] Complete Blood Count Auto Di ffon 12-07-2022 Mean Corpuscular HGB Conc 32.8 g/dL Normal 32.5-35.6 [facility] Comment on above: Performed By: #### B MP, CBC #### [place] [address] [place] Monocytes/100 WBC (Bld) 18.59 % Normal 0.00-20.00 [facility] Comment on above: Performed By: #### B MP, CBC #### [address] NRBC% 0.2 /100{WBC} Normal 0-0.[address] [facility] Comment on above: Performed By: #### B MP, CBC #### [place] [address] [place] Creatinine [Mass/volume] in Serum or PlasmaOrdered By: Jun Gaona on 12-07-2022 Creatinine [Mass/Vol] 0.70 mg/dL Normal 0.70-1.30 [facility] Comment on above: Performed By: #### B MP, CBC #### [place] [address] [place] Dipstick and Microscopicon 0 12-07-2022 Amorphous Sediment,Urine 3+ Normal [facility] Comment on above: Order Comment: Name Collection Type:: Suprapubic Collection Performed By: #### C BC, BMP #### [address] [place] [address] [place] Appearance (U) Turbid Critically abnormal Clear [facility] Comment on above: Order Comment: Name Collection Type:: Suprapubic Collection Performed By: #### C BC, BMP #### [facility] [address] [place] [address] [place] Bacteria,Urine 3+ High None Seen [facility] Comment on above: Order Comment: Name Collection Type:: Suprapubic Collection Performed By: #### C BC, BMP #### [place] [id number] [place] Bilirubin,Urine Negative Normal Negative [facility] Comment on above: Order Comment: Name Collection Type:: Suprapubic Collection Performed By: #### C BC, BMP #### [place] [address] [place] Calcium Oxalate Crystals,Urine 1+ Normal [facility] Comment on above: Order Comment: Name Collection Type:: Suprapubic Collection Performed By: #### C BC, BMP #### [place] [id number] [place] Glucose Ql (U) Normal Normal Normal [facility] Comment on above: Order Comment: Name Collection Type:: Suprapubic Collection Performed By: #### C BC, BMP #### [place] [id number] [place] Hyaline Casts,Urine None Seen Normal 0-1 [facility] Comment on above: Order Comment: Name Collection Type:: Suprapubic Collection Performed By: #### C BC, BMP #### [place] [id number] [place] Ketones Ql (U) Negative Normal Negative [facility] Comment on above: Order Comment: Name Collection Type:: Suprapubic Collection Performed By: #### C BC, BMP #### [place] [id number] [place] Leukocyte esterase Test strip Ql (U) 4+ High Negative [facility] Comment on above: Order Comment: Name Collection Type:: Suprapubic Collection Performed By: #### C BC, BMP #### [place] [address] [place] Nitrite,Urine Positive High Negative [facility] Comment on above: Order Comment: Name Collection Type:: Suprapubic Collection Performed By: #### C BC, BMP #### [address] Occult Blood,Urine 2+ High Negative [facility] Comment on above: Order Comment: Name Collection Type:: Suprapubic Collection Result Comment: PERF ORMED BY: [place] [address] PATHOLOGIST MANAGER [employer] RENETTA MONACO M.D. Performed By: #### C BC, BMP #### [address] Other Casts,Urine None Seen Normal None Seen [facility] Comment on above: Order Comment: Name Collection Type:: Suprapubic Collection Result Comment: PERF ORMED BY: [place] [address] PATHOLOGIST MANAGER [employer] RENETTA MONACO M.D. Performed By: #### C BC, BMP #### [place] [address] [place] Protein,Urine Trace High Negative [facility] Comment on above: Order Comment: Name Collection Type:: Suprapubic Collection Performed By: #### C BC, BMP #### [place] [address] [place] RBC,Urine 3-4 Normal 0-4 [facility] Comment on above: Order Comment: Name Collection Type:: Suprapubic Collection Performed By: #### C BC, BMP #### [place] [address] [place] Specificy [place],Urine 1.005 Normal 1.001-1.030 [facility] Comment on above: Order Comment: Name Collection Type:: Suprapubic Collection Performed By: #### C BC, BMP #### [place] [address] [place] Squamous Epithelial Cell,Urine 1-2 Normal 0-2 [facility] Comment on above: Order Comment: Name Collection Type:: Suprapubic Collection Performed By: #### C BC, BMP #### [address] Urobilinogen,Urine Normal Normal Normal [facility] Comment on above: Order Comment: Name Collection Type:: Suprapubic Collection Performed By: #### C BC, BMP #### [address] WBC,Urine Innumerable High 0-4 [facility] Comment on above: Order Comment: Name Collection Type:: Suprapubic Collection Performed By: #### C BC, BMP #### [address] Erythrocyte distribution wid th [Ratio] by Automated countOrdered By: Jun Gaona on 12-07-2022 Erythrocyte distribution width (RBC) [Ratio] 14.8 % Normal 12.0-14.8 [facility] Comment on above: Performed By: #### B MP, CBC #### [address] Erythrocytes [#/volume] in B lood by Automated countOrdered By: Jun Gaona on 12-07-2022 RBC (Bld) [#/Vol] 4.46 10*6/uL Normal 3.90-5.60 [facility] Comment on above: Performed By: #### B MP, CBC #### [address] Glucose [Mass/volume] in Ser um or PlasmaOrdered By: Jun Gaona on 12-07-2022 Glucose [Mass/Vol] 79 mg/dL Normal 70-100 [facility] Comment on above: ADA recommended refe rence rangeRandom Glucose Reference Range is dependent on time and content of last meal. Glucose of more than 200 mg/dL in a nonstressed, ambulatory subject supports the diagnosis of Diabetes Mellitus. Result Comment: [place] om Glucose Reference Range is dependent on time and content of last meal. Glucose of more than 200 mg/dL in a nonstressed, ambulatory subject supports the diagnosis of Diabetes Mellitus. ADA recommended reference range Performed By: #### B MP, CBC #### [address] Hematocrit [Volume Fraction] of Blood by Automated countOrdered By: Jun Gaona on 12-07-2022 Hematocrit (Bld) [Volume fraction] 36.9 % Low 38.8-50.0 [facility] Comment on above: Performed By: #### B MP, CBC #### [address] Hemoglobin [Mass/volume] in BloodOrdered By: Jun Gaona on 12-07-2022 Hemoglobin (Bld) [Mass/Vol] 12.1 g/dL Low 13.0-17.0 [facility] Comment on above: Performed By: #### B MP, CBC #### [address] Ketones Auto test strip (U) [Mass/Vol]Ordered By: Jun Gaona on 12-07-2022 Ketones (U) [Mass/Vol] Negative Negative [facility] Leukocytes [#/volume] correc mayte for nucleated erythrocytes in Blood by Automated counOrdered By: Jun Gaona on 12-07-2022 WBC corrected for nucl RBC Auto (Bld) [#/Vol] 4.1 10*3/uL 4.1-10.5 [facility] Leukocytes [#/volume] in Blo od by Automated countOrdered By: Jun Gaona on 12-07-2022 WBC (Bld) [#/Vol] 4.1 10*3/uL Normal 4.1-10.5 [facility] Comment on above: Performed By: #### B MP, CBC #### [place] [address] [place] Lymphocytes [#/volume] in Bl ood by Automated countOrdered By: Jun Gaona on 12-07-2022 Lymphocytes (Bld) [#/Vol] 1.5 10*3/uL Normal 1.00-4.8 [facility] Comment on above: Performed By: #### B MP, CBC #### [address] Lymphocytes/100 leukocytes i n Blood by Automated countOrdered By: Jun Gaona on 12-07-2022 Lymphocytes/100 WBC (Bld) 37.3 % Normal . [facility] Comment on above: Performed By: #### B MP, CBC #### [place] [address] [place] MCH [Entitic mass] by Automa mayte countOrdered By: uJn Gaona on 12-07-2022 MCH (RBC) [Entitic mass] 27.1 pg Low 27.5-35.2 [facility] Comment on above: Performed By: #### B MP, CBC #### [address] MCHC Auto (RBC) [Mass/Vol]Or dered By: Jun Gaona on 12-07-2022 MCHC (RBC) [Mass/Vol] 32.8 g/dL 32.5-35.6 [facility] MCV [Entitic volume] by Auto mated countOrdered By: Jun Gaona on 12-07-2022 MCV (RBC) [Entitic vol] 82.8 fL Low 83.5-101 F [facility] Comment on above: Performed By: #### B MP, CBC #### [address] Monocyte distribution width [Entitic volume] in Blood by AutomatedOrdered By: Jun Gaona on 12-07-2022 Monocyte distribution width Auto (Bld) [Entitic vol] 18.59 % 0.00-20.00 [facility] Neutrophils [#/volume] in Bl ood by Automated countOrdered By: Jun Gaona on 12-07-2022 Neutrophils (Bld) [#/Vol] 1.9 10*3/uL Normal 1.8-7.7 [facility] Comment on above: Performed By: #### B MP, CBC #### [address] Nitrite Test strip Ql (U)Ord ered By: Jun Gaona on 12-07-2022 Nitrite Ql (U) Positive Negative [facility] No Panel InformationOrdered By: Jun Gaona on 12-07-2022 Estimated GFR (CKD-EPI) > 60.0 mL/Min [facility] Creatinine Clearance (Chem 89.68 [facility] Nucleated erythrocytes [Pres ence] in Blood by Automated countOrdered By: Jun Gaona on 12-07-2022 Nucleated RBC Auto Ql (Bld) 0.2 /100{WBC} 0-0.5 [facility] Platelet mean volume [Entiti c volume] in Blood by Automated countOrdered By: Jun Gaona on 12-07-2022 Platelet mean volume (Bld) [Entitic vol] 8.1 fL Normal 6.6-10.1 [facility] Comment on above: Performed By: #### B MP, CBC #### [facility] [address] [place] [address] [place] Platelets [#/volume] in Bloo d by Automated countOrdered By: Jun Gaona on 12-07-2022 Platelets (Bld) [#/Vol] 204 10*3/uL Normal 150-450 [facility] Comment on above: Performed By: #### B MP, CBC #### [facility] [address] [place] [address] [place] Potassium [Moles/volume] in Serum or PlasmaOrdered By: Jun Gaona on 12-07-2022 Potassium [Moles/Vol] 4.0 mmol/L Normal 3.5-5.1 [facility] Comment on above: Performed By: #### B MP, CBC #### [facility] [address] Protein Auto test strip (U) [Mass/Vol]Ordered By: Jun Gaona on 12-07-2022 Protein (U) [Mass/Vol] Trace mg/dL Negative [facility] Serum or plasma anion gap de terminationOrdered By: Jun Gaona on 12-07-2022 Anion gap [Moles/Vol] 8.4 mmol/L Normal 6.0-15.0 [facility] Comment on above: Performed By: #### B MP, CBC #### [facility] [address] [place] [address] [place] Sodium [Moles/volume] in Ser um or PlasmaOrdered By: Jun Gaona on 12-07-2022 Sodium [Moles/Vol] 140 mmol/L Normal 136-145 [facility] Comment on above: Performed By: #### B MP, CBC #### [facility] [address] Specific gravity Auto test s trip (U) [Rel density]Ordered By: Jun Gaona on 12-07-2022 Specific gravity (U) [Rel density] 1.005 1.001-1.030 [facility] Urea nitrogen [Mass/volume] in Serum or PlasmaOrdered By: Jun Gaona on 12-07-2022 Urea nitrogen [Mass/Vol] 14 mg/dL Normal 7-25 [facility] Comment on above: Performed By: #### B VERNA, CBC #### [facility] [address] Urine Cultureon 12-07-2022 Bacteria identified Cx Nom (U) ORGANISM: Klebsiella pneumoniae (ESBL) (O:KLEPNEESBL) [place] Count >100,000 ORGANISM: Enterococcus faecalis (O:ENTFAC) [place] Count >100,000 Aerobic SCOTT Charge (NMIC56) ----- [...] RESISTANT TO ALL B-LACTAM DRUGS. PERFORMED BY: [place] [address] PATHOLOGIST MANAGER [employer] RENETTA MONACO M.D. Normal [facility] Comment on above: Performed By: #### C , BMP #### [address] Urine bacteria detection by automated methodOrdered By: Jun Gaona on 12-07-2022 Bacteria Auto Ql (U) 3+ None Seen [facility] Urine clarity by refractomet ry automatedOrdered By: Jun Gaona on 12-07-2022 Clarity Refractometry automated (U) Turbid Clear [facility] Urine culture routineOrdered By: Jun Gaona on 12-07-2022 Bacteria identified Cx Nom (U) Klebsiella pneumoniae (ESBL) [facility] Bacteria identified Cx Nom (U) Enterococcus faecalis [facility] Bacteria identified Cx Nom (U) Klebsiella pneumoniae (ESBL) [facility] Bacteria identified Cx Nom (U) Enterococcus faecalis [facility] Urine glucose measurement by automated test strip (mass/volume)Ordered By: Jun Gaona on 12-07-2022 Glucose Auto test strip (U) [Mass/Vol] Normal mg/dL Normal [facility] Urine hemoglobin detection b y automated test stripOrdered By: Jun Gaona on 12-07-2022 Hemoglobin Auto test strip Ql (U) 2+ Negative [facility] Urine leukocyte esterase det ection by automated test stripOrdered By: Jun Gaona on 12-07-2022 Leukocyte esterase Auto test strip Ql (U) 4+ Negative [facility] Urine pH measurement by auto mated test stripOrdered By: Jun Gaona on 12-07-2022 pH (U) 7.5 [pH] Normal 5.0-9.0 [facility] Comment on above: Order Comment: Name Collection Type:: Suprapubic Collection Performed By: #### C BC, BMP #### [address] Urobilinogen Auto test strip (U) [Mass/Vol]Ordered By: Jun Gaona on 12-07-2022 Urobilinogen (U) [Mass/Vol] Normal mg/dL Normal [facility] Bacteria Ur Culton 3 Bacteria identified Cx Nom (U) Abnormal [facility] Comment on above: Performed By: #### 6 30-4 ####[facility] [id number] [place] [address] [place] CNOVon 11-25-2022 CNOV Normal [facility] Urinalysis complete panel (U )on 11-25-2022 Bacteria LM.HPF (Urine sed) [#/Area] Moderate Abnormal None Seen [facility] Comment on above: Order Comment: Speci men Type: URINE SPECIMENOrdering Facility: [facility] Address: [address] [place], [place] [address] Performed By: #### 2 4356-8 ####[facility] [id number] [place] [address] [place] Bilirubin Ql (U) Negative Normal Negative [facility] Comment on above: Order Comment: Speci men Type: URINE SPECIMENOrdering Facility: [facility] Address: [address] [place] [address] Performed By: #### 2 4356-8 ####[facility] [id number] [place] [address] [place] CALCIUM OXALATE CRYSTALS (UA) Few Abnormal None Seen [facility] Comment on above: Order Comment: Speci men Type: URINE SPECIMENOrdering Facility: [facility] Address: [address] [place] [address] Performed By: #### 2 4356-8 ####[facility] [id number] [place] [address] [place] Clarity (Unsp spec) Cloudy Abnormal Clear [facility] Comment on above: Order Comment: Speci men Type: URINE SPECIMENOrdering Facility: [facility] Address: [address] Performed By: #### 2 4356-8 ####[facility] [id number] [place] [address] [place] Color (U) Red Abnormal Yellow [facility] Comment on above: Order Comment: Speci men Type: URINE SPECIMENOrdering Facility: [facility] Address: [address] [place] [address] Performed By: #### 2 4356-8 ####[facility] [id number] [place] [address] [place] Glucose Test strip (U) [Mass/Vol] Negative Normal Trace, Negative [facility] Comment on above: Order Comment: Speci men Type: URINE SPECIMENOrdering Facility: [facility] Address: [address] [place] [address] Performed By: #### 2 4356-8 ####[facility] [id number] [place] [address] [place] Hemoglobin Ql (U) 3+ Abnormal Negative, Trace [facility] Comment on above: Order Comment: Speci men Type: URINE SPECIMENOrdering Facility: [facility] Address: [address] [place] [address] Performed By: #### 2 4356-8 ####[facility] [id number] [place] [address] [place] Ketones Ql (U) Negative Normal Negative, Trace [facility] Comment on above: Order Comment: Speci men Type: URINE SPECIMENOrdering Facility: [facility] Address: [address] [place] [address] Performed By: #### 2 4356-8 ####[facility] [id number] [place] [address] [place] Leukocyte esterase Test strip Ql (U) 500 Arnulfo/uL Abnormal Negative, 25 Arnulfo/uL [facility] Comment on above: Order Comment: Speci men Type: URINE SPECIMENOrdering Facility: [facility] Address: [address] [place], [place] [address] Performed By: #### 2 4356-8 ####[facility] [id number] [place] [address] [place] Nitrite Ql (U) 1+ Abnormal Negative [facility] Comment on above: Order Comment: Speci men Type: URINE SPECIMENOrdering Facility: [facility] Address: [address] [place], [place] [address] Performed By: #### 2 4356-8 ####[facility] [id number] [place] [address] [place] pH (U) 7.0 [pH] Normal 5.0-8.0 [facility] Comment on above: Order Comment: Speci men Type: URINE SPECIMENOrdering Facility: [facility] Address: [address] Performed By: #### 2 4356-8 ####[facility] [id number] [address] STATES [facility] Protein (U) [Mass/Vol] 3+ Abnormal Trace , Negative [facility] Comment on above: Order Comment: Speci men Type: URINE SPECIMENOrdering Facility: [facility] Address: [address] [place] [address] Performed By: #### 2 4356-8 ####[facility] [id number] [address] [place] [facility] RBC LM.HPF (Urine sed) [#/Area] /[HPF] Abnormal 0-3 /HPF [facility] Comment on above: Order Comment: Speci men Type: URINE SPECIMENOrdering Facility: [facility] Address: [address] [place] [address] Performed By: #### 2 4356-8 ####[facility] [id number] [address] Specific gravity (U) [Rel density] 1.008 Normal 1.005-1.030 [facility] Comment on above: Order Comment: Speci men Type: URINE SPECIMENOrdering Facility: [facility] Address: [address] [place] [address] Performed By: #### 2 4356-8 ####[facility] [id number] [address] Urobilinogen Ql (U) Negative Normal Negative [facility] Comment on above: Order Comment: Speci men Type: URINE SPECIMENOrdering Facility: [facility] Address: [address] [place] [address] Performed By: #### 2 4356-8 ####[facility] [id number] [address] [place] WBC LM.HPF (Urine sed) [#/Area] /[HPF] Abnormal 0-5 /HPF [facility] Comment on above: Order Comment: Speci men Type: URINE SPECIMENOrdering Facility: [facility] Address: [address] Performed By: #### 2 4356-8 ####[facility] [id number] [place] [address] [place] CNPNon 11-12-2022 CNPN Normal [facility] CNOVon 10-27-2022 CNOV Normal [facility] XR ABDOMEN 1V SUPINEon 10-27 XR ABDOMEN 1V SUPINE Normal [facility] CNPNon 10-20-2022 CNPN Normal [facility] CNPNon 10-19-2022 CNPN Normal [facility] CASE MANAGEMon 10-14-2022 CASE MANAGEM Normal [facility] CASE MANAGEM Normal [facility] CNDSon 10-14-2022 CNDS Normal [facility] CONSULTon 10-14-2022 CONSULT Normal [facility] NURSING PROGon 10-14-2022 NURSING PROG Normal [facility] BRIEF OP NOTon 10-13-2022 BRIEF OP NOT Normal [facility] Basic metabolic 2000 panelon 10-13-2022 Anion gap [Moles/Vol] 10 mmol/L Normal 9-18 [facility] Comment on above: Order Comment: Speci men Type: BLOOD SPECIMENOrdering Facility: [facility] Address: [address] Performed By: #### 2 4321-2 ####[facility] [id number] [place] [address] [place] Calcium [Mass/Vol] 8.8 mg/dL Normal 8.5-10.2 [facility] Comment on above: Order Comment: Speci men Type: BLOOD SPECIMENOrdering Facility: [facility] Address: [address] [place] [address] Performed By: #### 2 4321-2 ####[facility] [id number] [place] [address] [id number] Chloride [Moles/Vol] 108 mmol/L High 97-105 [facility] Comment on above: Order Comment: Speci men Type: BLOOD SPECIMENOrdering Facility: [facility] Address: [address] [place] [address] Performed By: #### 2 4321-2 ####[facility] [id number] [address] [place] CO2 [Moles/Vol] 26 mmol/L Normal 22-30 [facility] Comment on above: Order Comment: Speci men Type: BLOOD SPECIMENOrdering Facility: [facility] Address: [address] [place] [address] Performed By: #### 2 4321-2 ####[facility] [id number] [address] OF [facility] Creatinine [Mass/Vol] 0.94 mg/dL Normal 0.73-1.22 [facility] Comment on above: Order Comment: Speci men Type: BLOOD SPECIMENOrdering Facility: [facility] Address: [address] [place] [address] Performed By: #### 2 4321-2 ####[facility] [id number] [address] OF [facility] ESTIMATED GLOMERULAR FILTRATION RATE 89 mL/min/1.73m??? Normal >=60 [facility] Comment on above: Order Comment: Speci men Type: BLOOD SPECIMENOrdering Facility: [facility] Address: [address] [place] [address] Result Comment: Ignacia mated Glomerular Filtration Rate [...] actual GFR. Performed By: #### 2 4321-2 ####[facility] [id number] [place] [address] [place] Glucose [Mass/Vol] 88 mg/dL Normal 74-99 [facility] Comment on above: Order Comment: Speci men Type: BLOOD SPECIMENOrdering Facility: [facility] Address: [address] [place] [address] Result Comment: The [place] Diabetes [employer] (ADA) provides guidance for cutoff [...] Standards of Medical Care in Diabetes 2016, [place] [employer]. Diabetes Care. 2016.39(Suppl 1). Performed By: #### 2 4321-2 ####[facility] [id number] [place] [address] [place] Potassium [Moles/Vol] 3.8 mmol/L Normal 3.7-5.1 [facility] Comment on above: Order Comment: Speci men Type: BLOOD SPECIMENOrdering Facility: [facility] Address: [address] [place] [address] Performed By: #### 2 4321-2 ####[facility] [id number] [place] [address] [place] Sodium [Moles/Vol] 144 mmol/L Normal 136-144 [facility] Comment on above: Order Comment: Speci men Type: BLOOD SPECIMENOrdering Facility: [facility] Address: [address] [place] [address] Performed By: #### 2 4321-2 ####[facility] [id number] [place] [address] [place] Urea nitrogen [Mass/Vol] 9 mg/dL Normal 9-24 [facility] Comment on above: Order Comment: Speci men Type: BLOOD SPECIMENOrdering Facility: [facility] Address: [address] [place] [address] Performed By: #### 2 4321-2 ####[facility] [id number] [place] [address] [place] CASE MGT INIT ASSESon 2022 CASE MGT INIT ASSES Normal [facility] CBC panel Auto (Bld)on 10-13 Erythrocyte distribution width (RBC) [Ratio] 14.1 % Normal 11.5-15.0 [facility] Comment on above: Order Comment: Speci men Type: BLOOD SPECIMENOrdering Facility: [facility] Address: [address] [place] [address] Performed By: #### 5 8410-2 ####[facility] [id number] [place] [address] [place] Hematocrit (Bld) [Volume fraction] 27.1 % Low 39.0-51.0 [facility] Comment on above: Order Comment: Speci men Type: BLOOD SPECIMENOrdering Facility: [facility] Address: [address] [place] [address] Performed By: #### 5 8410-2 ####[facility] [id number] [place] [address] [place] Hemoglobin (Bld) [Mass/Vol] 8.8 g/dL Low 13.0-17.0 [facility] Comment on above: Order Comment: Speci men Type: BLOOD SPECIMENOrdering Facility: [facility] Address: [address] [place] [address] Performed By: #### 5 8410-2 ####[facility] [id number] [address] MCH (RBC) [Entitic mass] 27.7 pg Normal 26.0-34.0 [facility] Comment on above: Order Comment: Speci men Type: BLOOD SPECIMENOrdering Facility: [facility] Address: [address] [place] [address] Performed By: #### 5 8410-2 ####[facility] [id number] [address] MCHC (RBC) [Mass/Vol] 32.5 g/dL Normal 30.5-36.0 [facility] Comment on above: Order Comment: Speci men Type: BLOOD SPECIMENOrdering Facility: [facility] Address: [address] [place] [address] Performed By: #### 5 8410-2 ####[facility] [id number] [address] OF [facility] MCV (RBC) [Entitic vol] 85.2 fL Normal 80.0-100.0 C [facility] Comment on above: Order Comment: Speci men Type: BLOOD SPECIMENOrdering Facility: [facility] Address: [address] [place] [address] Performed By: #### 5 8410-2 ####[facility] [id number] [place] [address] [place] Nucleated RBC (Bld) [#/Vol] 10*3/uL Normal <0.01 [facility] Comment on above: Order Comment: Speci men Type: BLOOD SPECIMENOrdering Facility: [facility] Address: [address] [place], [place] [address] Performed By: #### 5 8410-2 ####[facility] [id number] [address] [place] Platelet mean volume (Bld) [Entitic vol] 10.0 fL Normal 9.0-12.7 [facility] Comment on above: Order Comment: Speci men Type: BLOOD SPECIMENOrdering Facility: [facility] Address: [address] Performed By: #### 5 8410-2 ####[facility] [id number] [place] [address] [place] Platelets (Bld) [#/Vol] 186 10*3/uL Normal 150-400 [facility] Comment on above: Order Comment: Speci men Type: BLOOD SPECIMENOrdering Facility: [facility] Address: [address] [place], [place] [address] Performed By: #### 5 8410-2 ####[facility] [id number] [place] [address] [place] RBC (Bld) [#/Vol] 3.18 10*6/uL Low 4.20-6.00 [facility] Comment on above: Order Comment: Speci men Type: BLOOD SPECIMENOrdering Facility: [facility] Address: [address] [place], [place] [address] Performed By: #### 5 8410-2 ####[facility] [id number] [place] [address] [place] WBC (Bld) [#/Vol] 4.95 10*3/uL Normal 3.70-11.00 [facility] Comment on above: Order Comment: Speci men Type: BLOOD SPECIMENOrdering Facility: [facility] Address: [address] [place], [place] [address] Performed By: #### 5 8410-2 ####[facility] [id number] [place] [address] [place] CONSULT PROGon 10-13-2022 CONSULT PROG Normal [facility] IR LINE REMOVAL CONSULTon IR LINE REMOVAL CONSULT Normal C [facility] THERAPY NTon 07-19-2023 THERAPY NT Normal [facility] THERAPY NT Normal [facility] Basic metabolic 2000 panelon 10-12-2022 Anion gap [Moles/Vol] 7 mmol/L Low 9-18 [facility] Comment on above: Order Comment: Speci men Type: BLOOD SPECIMENOrdering Facility: [facility] Address: [address] [place] [address] Performed By: #### 2 4321-2 ####[facility] [id number] [place] [address] [place] Calcium [Mass/Vol] 8.7 mg/dL Normal 8.5-10.2 [facility] Comment on above: Order Comment: Speci men Type: BLOOD SPECIMENOrdering Facility: [facility] Address: [address] [place] [address] Performed By: #### 2 4321-2 ####[facility] [id number] [place] [address] [place] Chloride [Moles/Vol] 102 mmol/L Normal 97-105 [facility] Comment on above: Order Comment: Speci men Type: BLOOD SPECIMENOrdering Facility: [facility] Address: [address] [place] [address] Performed By: #### 2 4321-2 ####[facility] [id number] [place] [address] [place] CO2 [Moles/Vol] 25 mmol/L Normal 22-30 [facility] Comment on above: Order Comment: Speci men Type: BLOOD SPECIMENOrdering Facility: [facility] Address: [address] [place], [place] [address] Performed By: #### 2 4321-2 ####[facility] [id number] [place] [address] [place] Creatinine [Mass/Vol] 0.86 mg/dL Normal 0.73-1.22 [facility] Comment on above: Order Comment: Speci men Type: BLOOD SPECIMENOrdering Facility: [facility] Address: [address] [address] Performed By: #### 2 4321-2 ####[facility] [id number] [place] [address] [place] ESTIMATED GLOMERULAR FILTRATION RATE 95 mL/min/1.73m??? Normal >=60 [facility] Comment on above: Order Comment: Cierra men Type: BLOOD SPECIMENOrdering Facility: [facility] Address: [address] [address] Result Comment: Ignacia mated Glomerular Filtration Rate [...] actual GFR. Performed By: #### 2 4321-2 ####[facility] [id number] [place] [address] [place] Glucose [Mass/Vol] 136 mg/dL High 74-99 [facility] Comment on above: Order Comment: Cierra cartwright Type: BLOOD SPECIMENOrdering Facility: [facility] Address: [address] [place] [address] Result Comment: The [place] [employer] (ADA) provides guidance for cutoff [...] Standards of Medical Care in Diabetes 2016, [place] [employer]. Diabetes Care. 2016.39(Suppl 1). Performed By: #### 2 4321-2 ####[facility] [id number] [place] [address] [place] Potassium [Moles/Vol] 4.3 mmol/L Normal 3.7-5.1 [facility] Comment on above: Order Comment: Speci men Type: BLOOD SPECIMENOrdering Facility: [facility] Address: [address] [place] [address] Performed By: #### 2 4321-2 ####[facility] [id number] [place] [address] [place] Sodium [Moles/Vol] 134 mmol/L Low 136-144 [facility] Comment on above: Order Comment: Speci men Type: BLOOD SPECIMENOrdering Facility: [facility] Address: [address] [place] [address] Performed By: #### 2 4321-2 ####[facility] [id number] [place] [address] [place] Urea nitrogen [Mass/Vol] 12 mg/dL Normal 9-24 [facility] Comment on above: Order Comment: Speci men Type: BLOOD SPECIMENOrdering Facility: [facility] Address: [address] [place] [address] Performed By: #### 2 4321-2 ####[facility] [id number] [place] [address] [place] CBC panel Auto (Bld)on 10-12 Erythrocyte distribution width (RBC) [Ratio] 13.7 % Normal 11.5-15.0 [facility] Comment on above: Order Comment: Speci men Type: BLOOD SPECIMENOrdering Facility: [facility] Address: [address] [place] [address] Performed By: #### 5 8410-2 ####[facility] [id number] [place] [address] [place] Hematocrit (Bld) [Volume fraction] 30.7 % Low 39.0-51.0 [facility] Comment on above: Order Comment: Speci men Type: BLOOD SPECIMENOrdering Facility: [facility] Address: [address] [place] [address] Performed By: #### 5 8410-2 ####[facility] [id number] [place] [address] [place] Hemoglobin (Bld) [Mass/Vol] 9.8 g/dL Low 13.0-17.0 [facility] Comment on above: Order Comment: Speci men Type: BLOOD SPECIMENOrdering Facility: [facility] Address: [address] [place] [address] Performed By: #### 5 8410-2 ####[facility] [id number] [address] [place] MCH (RBC) [Entitic mass] 27.3 pg Normal 26.0-34.0 [facility] Comment on above: Order Comment: Speci men Type: BLOOD SPECIMENOrdering Facility: [facility] Address: [address] [place] [address] Performed By: #### 5 8410-2 ####[facility] [id number] [address] [place] MCHC (RBC) [Mass/Vol] 31.9 g/dL Normal 30.5-36.0 [facility] Comment on above: Order Comment: Speci men Type: BLOOD SPECIMENOrdering Facility: [facility] Address: [address] [place], [place] [address] Performed By: #### 5 8410-2 ####[facility] [id number] [address] [place] MCV (RBC) [Entitic vol] 85.5 fL Normal 80.0-100.0 [facility] Comment on above: Order Comment: Speci men Type: BLOOD SPECIMENOrdering Facility: [facility] Address: [address] Performed By: #### 5 8410-2 ####[facility] [id number] [place] [address] [place] Nucleated RBC (Bld) [#/Vol] 10*3/uL Normal <0.01 [facility] Comment on above: Order Comment: Speci men Type: BLOOD SPECIMENOrdering Facility: [facility] Address: [address] Performed By: #### 5 8410-2 ####[facility] [id number] [place] [address] [place] Platelet mean volume (Bld) [Entitic vol] 10.3 fL Normal 9.0-12.7 [facility] Comment on above: Order Comment: Speci men Type: BLOOD SPECIMENOrdering Facility: [facility] Address: [address] Performed By: #### 5 8410-2 ####[facility] [id number] [place] [address] [place] Platelets (Bld) [#/Vol] 218 10*3/uL Normal 150-400 [facility] Comment on above: Order Comment: Speci men Type: BLOOD SPECIMENOrdering Facility: [facility] Address: [address] [place] [address] Performed By: #### 5 8410-2 ####[facility] [id number] [place] [address] [place] RBC (Bld) [#/Vol] 3.59 10*6/uL Low 4.20-6.00 [facility] Comment on above: Order Comment: Speci men Type: BLOOD SPECIMENOrdering Facility: [facility] Address: [address] [place], [place] [address] Performed By: #### 5 8410-2 ####[facility] [id number] [address] [address] [place] WBC (Bld) [#/Vol] 11.23 10*3/uL High 3.70-11.00 [facility] Comment on above: Order Comment: Speci men Type: BLOOD SPECIMENOrdering Facility: [facility] Address: [place] [address] Performed By: #### 5 8410-2 ####[facility] [id number] [place] [address] [place] CONSULT PROGon 10-12-2022 CONSULT PROG Normal [facility] NURSING PROGon 10-12-2022 NURSING PROG Normal [facility] ANES POSTPROC EVALon 023 ANES POSTPROC EVAL Normal [facility] ANES PRE-OPon 10-11-2022 ANES PRE-OP Normal [facility] BRIEF OP NOTon 10-11-2022 BRIEF OP NOT Normal [facility] Bacteria Ur Culton Bacteria identified Cx Nom (U) CULTURE, URINE: No growth (<100 CFU/ml) Normal [facility] Comment on above: Performed By: #### 6 30-4 ####[facility] [id number] [place] [address] [place] Basic metabolic 2000 panelon 10-11-2022 Anion gap [Moles/Vol] 9 mmol/L Normal 9-18 [facility] Comment on above: Order Comment: Speci men Type: BLOOD SPECIMENOrdering Facility: [facility] Address: [place] [address] Performed By: #### 2 4321-2 ####[facility] [id number] [place] [address] [place] Calcium [Mass/Vol] 9.0 mg/dL Normal 8.5-10.2 [facility] Comment on above: Order Comment: Speci men Type: BLOOD SPECIMENOrdering Facility: [facility] Address: [address] [address] Performed By: #### 2 4321-2 ####[facility] [id number] [place] [address] [place] Chloride [Moles/Vol] 106 mmol/L High 97-105 [facility] Comment on above: Order Comment: Speci men Type: BLOOD SPECIMENOrdering Facility: [facility] Address: [address] [address] Performed By: #### 2 4321-2 ####[facility] [id number] [place] [address] [place] CO2 [Moles/Vol] 24 mmol/L Normal 22-30 [facility] Comment on above: Order Comment: Speci men Type: BLOOD SPECIMENOrdering Facility: [facility] Address: [address] Performed By: #### 2 4321-2 ####[facility] [id number] [place] [address] [place] Creatinine [Mass/Vol] 0.88 mg/dL Normal 0.73-1.22 [facility] Comment on above: Order Comment: Speci men Type: BLOOD SPECIMENOrdering Facility: [facility] Address: [address] Performed By: #### 2 4321-2 ####[facility] [id number] [place] [address] [place] ESTIMATED GLOMERULAR FILTRATION RATE 94 mL/min/1.73m??? Normal >=60 [facility] Comment on above: Order Comment: Speci men Type: BLOOD SPECIMENOrdering Facility: [facility] Address: [address] Result Comment: Ignacia mated Glomerular Filtration Rate [...] actual GFR. Performed By: #### 2 4321-2 ####[facility] [id number] [place] [address] [place] Glucose [Mass/Vol] 101 mg/dL High 74-99 [facility] Comment on above: Order Comment: Cierra cartwright Type: BLOOD SPECIMENOrdering Facility: [facility] Address: [address] [address] Result Comment: The [place] Diabetes Association (ADA) provides guidance for cutoff [...] Standards of Medical Care in Diabetes 2016, [place] [employer]. Diabetes Care. 2016.39(Suppl 1). Performed By: #### 2 4321-2 ####[facility] [id number] [place] [address] [place] Potassium [Moles/Vol] 4.1 mmol/L Normal 3.7-5.1 [facility] Comment on above: Order Comment: Cierra cartwright Type: BLOOD SPECIMENOrdering Facility: [facility] Address: [address] [id number] Performed By: #### 2 4321-2 ####[facility] [id number] [place] [address] [place] Sodium [Moles/Vol] 139 mmol/L Normal 136-144 [facility] Comment on above: Order Comment: Speci men Type: BLOOD SPECIMENOrdering Facility: [facility] Address: [address] Performed By: #### 2 4321-2 ####[facility] [id number] [place] [address] [place] Urea nitrogen [Mass/Vol] 8 mg/dL Low 9-24 [facility] Comment on above: Order Comment: Speci men Type: BLOOD SPECIMENOrdering Facility: [facility] Address: [address] Performed By: #### 2 4321-2 ####[facility] [id number] [place] [address] [place] Anion gap [Moles/Vol] 7 mmol/L Low 9-18 [facility] Comment on above: Order Comment: Speci men Type: BLOOD SPECIMENOrdering Facility: [facility] Address: [address] Performed By: #### 2 4321-2 ####[facility] [id number] [place] [address] [place] Calcium [Mass/Vol] 9.0 mg/dL Normal 8.5-10.2 [facility] Comment on above: Order Comment: Speci men Type: BLOOD SPECIMENOrdering Facility: [facility] Address: [address] Performed By: #### 2 4321-2 ####[facility] [id number] [place] [address] [place] Chloride [Moles/Vol] 107 mmol/L High 97-105 [facility] Comment on above: Order Comment: Speci men Type: BLOOD SPECIMENOrdering Facility: [facility] Address: [address] Performed By: #### 2 4321-2 ####[facility] [id number] [place] [address] [place] CO2 [Moles/Vol] 25 mmol/L Normal 22-30 [facility] Comment on above: Order Comment: Speci men Type: BLOOD SPECIMENOrdering Facility: [facility] Address: [address] [place] [address] Performed By: #### 2 4321-2 ####[facility] [id number] [place] [address] [place] Creatinine [Mass/Vol] 0.82 mg/dL Normal 0.73-1.22 [facility] Comment on above: Order Comment: Speci men Type: BLOOD SPECIMENOrdering Facility: [facility] Address: [address] [place] [address] Performed By: #### 2 4321-2 ####[facility] [id number] [address] [place] ESTIMATED GLOMERULAR FILTRATION RATE 96 mL/min/1.73m??? Normal >=60 [facility] Comment on above: Order Comment: Speci men Type: BLOOD SPECIMENOrdering Facility: [facility] Address: [address] [place] [address] Result Comment: Ignacia mated Glomerular Filtration Rate [...] actual GFR. Performed By: #### 2 4321-2 ####[facility] [id number] [place] [address] [place] Glucose [Mass/Vol] 85 mg/dL Normal 74-99 [facility] Comment on above: Order Comment: Speci men Type: BLOOD SPECIMENOrdering Facility: [facility] Address: [address] [place], [place] [address] Result Comment: The [place] Diabetes Association (ADA) provides guidance for cutoff [...] Standards of Medical Care in Diabetes 2016, [place] [employer]. Diabetes Care. 2016.39(Suppl 1). Performed By: #### 2 4321-2 ####[facility] [id number] [place] [address] [place] Potassium [Moles/Vol] 3.7 mmol/L Normal 3.7-5.1 [facility] Comment on above: Order Comment: Speci men Type: BLOOD SPECIMENOrdering Facility: [facility] Address: [address] [place], [place] [address] Performed By: #### 2 4321-2 ####[facility] [id number] [place] [address] [place] Sodium [Moles/Vol] 139 mmol/L Normal 136-144 [facility] Comment on above: Order Comment: Speci men Type: BLOOD SPECIMENOrdering Facility: [facility] Address: [address] [place], [place] [address] Performed By: #### 2 4321-2 ####[facility] [id number] [place] [address] [place] Urea nitrogen [Mass/Vol] 8 mg/dL Low 9-24 [facility] Comment on above: Order Comment: Speci men Type: BLOOD SPECIMENOrdering Facility: [facility] Address: [address] [place] [address] Performed By: #### 2 4321-2 ####[facility] [id number] [address] [place] CALCULI ANALYSISon 3 Calculus analysis [Interp] Normal [facility] Comment on above: Order Comment: Speci men Type: CALCULUS SPECIMENOrdering Facility: [facility] Address: [address] [place] [address] Result Comment: This test was developed and its performance characteristics determined by [facility]'s [facility] [place] ([facility]). It has not been cleared or approved by the FDA. -[facility] is regulated under CLIA as qualified to perform high-complexity testing. This test is used for clinical purposes. It should not be regarded as investigational or for research. Performed By: #### C SA ####[facility] [id number] [address] [place] CALCULUS COLOR WHITE Normal [facility] Comment on above: Order Comment: Speci men Type: CALCULUS SPECIMENOrdering Facility: [facility] Address: [address] [place] [address] Performed By: #### C SA ####[facility] [id number] [address] [place] CALCULUS COMPOSITION 1 100% Calcium Phosphate Normal [facility] Comment on above: Order Comment: Speci men Type: CALCULUS SPECIMENOrdering Facility: [facility] Address: [address] [place] [address] Performed By: #### C SA ####[facility] [id number] [address] [place] CALCULUS SIZE AND WT Multiple pieces. 0.1902 GRAMS Normal [facility] Comment on above: Order Comment: Speci men Type: CALCULUS SPECIMENOrdering Facility: [facility] Address: [address] [place], [place] [address] Performed By: #### C SA ####[facility] [id number] [place] [address] [place] CALCULUS TYPE CALCULI/CALCULUS Normal [facility] Comment on above: Order Comment: Speci men Type: CALCULUS SPECIMENOrdering Facility: [facility] Address: [address] [place] [address] Performed By: #### C SA ####[facility] [id number] [place] [address] [place] CBC W Auto Differential pane l (Bld)on 10-11-2022 Basophils (Bld) [#/Vol] 0.03 10*3/uL Normal <0.11 [facility] Comment on above: Order Comment: Speci men Type: BLOOD SPECIMENOrdering Facility: [facility] Address: [address] [place] [address] Performed By: #### 5 7021-8 ####[facility] [id number] [place] [address] [place] Basophils/100 WBC (Bld) 0.4 % Normal [facility] Comment on above: Order Comment: Speci men Type: BLOOD SPECIMENOrdering Facility: [facility] Address: [address] [place], [place] [address] Performed By: #### 5 7021-8 ####[facility] [id number] [address] [place] Differential cell count method Nom (Bld) Auto Normal [facility] Comment on above: Order Comment: Speci men Type: BLOOD SPECIMENOrdering Facility: [facility] Address: [address] [place], [place] [address] Performed By: #### 5 7021-8 ####[facility] [id number] [place] [address] [place] Eosinophils (Bld) [#/Vol] 0.07 10*3/uL Normal <0.46 [facility] Comment on above: Order Comment: Speci men Type: BLOOD SPECIMENOrdering Facility: [facility] Address: [address] [place] [address] Performed By: #### 5 7021-8 ####[facility] [id number] [address] [place] Eosinophils/100 WBC (Bld) 0.9 % Normal [facility] Comment on above: Order Comment: Speci men Type: BLOOD SPECIMENOrdering Facility: [facility] Address: [address] [place] [address] Performed By: #### 5 7021-8 ####[facility] [id number] [address] [place] Erythrocyte distribution width (RBC) [Ratio] 14.1 % Normal 11.5-15.0 [facility] Comment on above: Order Comment: Speci men Type: BLOOD SPECIMENOrdering Facility: [facility] Address: [address] [place], [place] [address] Performed By: #### 5 7021-8 ####[facility] [id number] [address] [place] Hematocrit (Bld) [Volume fraction] 32.0 % Low 39.0-51.0 [facility] Comment on above: Order Comment: Speci men Type: BLOOD SPECIMENOrdering Facility: [facility] Address: [address] [place], [place] [address] Performed By: #### 5 7021-8 ####[facility] [id number] [place] [address] [place] Hemoglobin (Bld) [Mass/Vol] 10.2 g/dL Low 13.0-17.0 [facility] Comment on above: Order Comment: Speci men Type: BLOOD SPECIMENOrdering Facility: [facility] Address: [address] Performed By: #### 5 7021-8 ####[facility] [id number] [place] [address] [place] Immature granulocytes (Bld) [#/Vol] 0.05 10*3/uL Normal <0.10 [facility] Comment on above: Order Comment: Speci men Type: BLOOD SPECIMENOrdering Facility: [facility] Address: [address] Performed By: #### 5 7021-8 ####[facility] [id number] [address] STATES OF [facility] Immature granulocytes/100 WBC (Bld) 0.6 % Normal [facility] Comment on above: Order Comment: Speci men Type: BLOOD SPECIMENOrdering Facility: [facility] Address: [address] [place], [place] [address] Performed By: #### 5 7021-8 ####[facility] [id number] [place] [address] [place] Lymphocytes (Bld) [#/Vol] 0.32 10*3/uL Low 1.00-4.00 [facility] Comment on above: Order Comment: Speci men Type: BLOOD SPECIMENOrdering Facility: [facility] Address: [address] [place], [place] [address] Performed By: #### 5 7021-8 ####[facility] [id number] [address] [place] Lymphocytes/100 WBC (Bld) 4.0 % Normal [facility] Comment on above: Order Comment: Speci men Type: BLOOD SPECIMENOrdering Facility: [facility] Address: [address] [place], [place] [address] Performed By: #### 5 7021-8 ####[facility] [id number] [address] MCH (RBC) [Entitic mass] 27.4 pg Normal 26.0-34.0 [facility] Comment on above: Order Comment: Speci men Type: BLOOD SPECIMENOrdering Facility: [facility] Address: [address] [place] [address] Performed By: #### 5 7021-8 ####[facility] [id number] [address] MCHC (RBC) [Mass/Vol] 31.9 g/dL Normal 30.5-36.0 [facility] Comment on above: Order Comment: Speci men Type: BLOOD SPECIMENOrdering Facility: [facility] Address: [address] [place] [address] Performed By: #### 5 7021-8 ####[facility] [id number] [address] MCV (RBC) [Entitic vol] 86.0 fL Normal 80.0-100.0 [facility] Comment on above: Order Comment: Speci men Type: BLOOD SPECIMENOrdering Facility: [facility] Address: [address] [place] [address] Performed By: #### 5 7021-8 ####[facility] [id number] [place] [address] [place] Monocytes (Bld) [#/Vol] 0.08 10*3/uL Normal <0.87 [facility] Comment on above: Order Comment: Speci men Type: BLOOD SPECIMENOrdering Facility: [facility] Address: [address] [place], [place] [address] Performed By: #### 5 7021-8 ####[facility] [id number] [address] [place] Monocytes/100 WBC (Bld) 1.0 % Normal [facility] Comment on above: Order Comment: Speci men Type: BLOOD SPECIMENOrdering Facility: [facility] Address: [address] Performed By: #### 5 7021-8 ####[facility] [id number] [place] [address] [place] Neutrophils (Bld) [#/Vol] 7.39 10*3/uL Normal 1.45-7.50 [facility] Comment on above: Order Comment: Speci men Type: BLOOD SPECIMENOrdering Facility: [facility] Address: [address] [address] Performed By: #### 5 7021-8 ####[facility] [id number] [place] [address] [place] Neutrophils/100 WBC (Bld) 93.1 % Normal [facility] Comment on above: Order Comment: Speci men Type: BLOOD SPECIMENOrdering Facility: [facility] Address: [address] Performed By: #### 5 7021-8 ####[facility] [id number] [place] [address] [place] Nucleated RBC (Bld) [#/Vol] 10*3/uL Normal <0.01 [facility] Comment on above: Order Comment: Speci men Type: BLOOD SPECIMENOrdering Facility: [facility] Address: [address] Performed By: #### 5 7021-8 ####[facility] [id number] [place] [address] [place] Nucleated RBC/100 WBC (Bld) [Ratio] 0.0 /100 WBC Normal [facility] Comment on above: Order Comment: Speci men Type: BLOOD SPECIMENOrdering Facility: [facility] Address: [address] [address] Performed By: #### 5 7021-8 ####[facility] [id number] [place] [address] [place] Platelet mean volume (Bld) [Entitic vol] 9.3 fL Normal 9.0-12.7 [facility] Comment on above: Order Comment: Speci men Type: BLOOD SPECIMENOrdering Facility: [facility] Address: [address] [place] [address] Performed By: #### 5 7021-8 ####[facility] [id number] [place] [address] [place] Platelets (Bld) [#/Vol] 212 10*3/uL Normal 150-400 [facility] Comment on above: Order Comment: Speci men Type: BLOOD SPECIMENOrdering Facility: [facility] Address: [address] [place], [place] [address] Performed By: #### 5 7021-8 ####[facility] [id number] [place] [address] [place] RBC (Bld) [#/Vol] 3.72 10*6/uL Low 4.20-6.00 [facility] Comment on above: Order Comment: Speci men Type: BLOOD SPECIMENOrdering Facility: [facility] Address: [address] [place] [address] Performed By: #### 5 7021-8 ####[facility] [id number] [place] [address] [place] WBC (Bld) [#/Vol] 7.94 10*3/uL Normal 3.70-11.00 [facility] Comment on above: Order Comment: Speci men Type: BLOOD SPECIMENOrdering Facility: [facility] Address: [address] [place] [phone] Performed By: #### 5 7021-8 ####[facility] [id number] [place] [address] [place] CBC panel Auto (Bld)on 10-11 Erythrocyte distribution width (RBC) [Ratio] 14.1 % Normal 11.5-15.0 [facility] Comment on above: Order Comment: Speci men Type: BLOOD SPECIMENOrdering Facility: [facility] Address: [address] [place] [address] Performed By: #### 5 8410-2 ####[facility] [id number] [address] [place] Hematocrit (Bld) [Volume fraction] 29.1 % Low 39.0-51.0 [facility] Comment on above: Order Comment: Speci men Type: BLOOD SPECIMENOrdering Facility: [facility] Address: [address] [place] [address] Performed By: #### 5 8410-2 ####[facility] [id number] [address] [place] Hemoglobin (Bld) [Mass/Vol] 9.3 g/dL Low 13.0-17.0 [facility] Comment on above: Order Comment: Speci men Type: BLOOD SPECIMENOrdering Facility: [facility] Address: [address] [place] [address] Performed By: #### 5 8410-2 ####[facility] [id number] [place] [address] [place] MCH (RBC) [Entitic mass] 27.2 pg Normal 26.0-34.0 [facility] Comment on above: Order Comment: Speci men Type: BLOOD SPECIMENOrdering Facility: [facility] Address: [address] [place] [address] Performed By: #### 5 8410-2 ####[facility] [id number] [address] [place] MCHC (RBC) [Mass/Vol] 32.0 g/dL Normal 30.5-36.0 [facility] Comment on above: Order Comment: Speci men Type: BLOOD SPECIMENOrdering Facility: [facility] Address: [address] [place], [place] [address] Performed By: #### 5 8410-2 ####[facility] [id number] [address] [place] MCV (RBC) [Entitic vol] 85.1 fL Normal 80.0-100.0 [facility] Comment on above: Order Comment: Speci men Type: BLOOD SPECIMENOrdering Facility: [facility] Address: [address] [place], [place] [address] Performed By: #### 5 8410-2 ####[facility] [id number] [place] [address] [place] Nucleated RBC (Bld) [#/Vol] 10*3/uL Normal <0.01 [facility] Comment on above: Order Comment: Speci men Type: BLOOD SPECIMENOrdering Facility: [facility] Address: [address] [place], [place] [address] Performed By: #### 5 8410-2 ####[facility] [id number] [place] [address] [place] Platelet mean volume (Bld) [Entitic vol] 9.6 fL Normal 9.0-12.7 [facility] Comment on above: Order Comment: Speci men Type: BLOOD SPECIMENOrdering Facility: [facility] Address: [address] [place], [place] [address] Performed By: #### 5 8410-2 ####[facility] [id number] [place] [address] [place] Platelets (Bld) [#/Vol] 221 10*3/uL Normal 150-400 [facility] Comment on above: Order Comment: Speci men Type: BLOOD SPECIMENOrdering Facility: [facility] Address: [address] [place] [address], [place] [address] Performed By: #### 5 8410-2 ####[facility] [id number] [place] [address] [place] RBC (Bld) [#/Vol] 3.42 10*6/uL Low 4.20-6.00 [facility] Comment on above: Order Comment: Speci men Type: BLOOD SPECIMENOrdering Facility: [facility] Address: [address] Performed By: #### 5 8410-2 ####[facility] [id number] [place] [address] [place] WBC (Bld) [#/Vol] 4.18 10*3/uL Normal 3.70-11.00 [facility] Comment on above: Order Comment: Speci men Type: BLOOD SPECIMENOrdering Facility: [facility] Address: [address] [place] [address] Performed By: #### 5 8410-2 ####[facility] [id number] [place] [address] [place] CONSULTon 10-11-2022 CONSULT Normal [facility] NURSING PROGon 10-11-2022 NURSING PROG Normal [facility] NURSING PROG Normal [facility] NUTRITIONon 10-11-2022 NUTRITION Normal [facility] OPERATIVE NOon 10-11-2022 OPERATIVE NO Normal [facility] XR CHEST 1V FRONTAL PORTon 0 10-11-2022 XR CHEST 1V FRONTAL PORT Normal [facility] ALLIED HEALTHon 10-10-2022 ALLIED HEALTH Normal [facility] Basic metabolic 2000 panelon 10-10-2022 Anion gap [Moles/Vol] 12 mmol/L Normal 9-18 [facility] Comment on above: Order Comment: Speci men Type: BLOOD SPECIMENOrdering Facility: [facility] Address: [address] [place] [phone] Performed By: #### 2 4321-2 ####[facility] [id number] [place] [address] [place] Calcium [Mass/Vol] 9.4 mg/dL Normal 8.5-10.2 [facility] Comment on above: Order Comment: Speci men Type: BLOOD SPECIMENOrdering Facility: [facility] Address: [address] [place] [address] Performed By: #### 2 4321-2 ####[facility] [id number] [place] [address] [place] Chloride [Moles/Vol] 106 mmol/L High 97-105 [facility] Comment on above: Order Comment: Speci men Type: BLOOD SPECIMENOrdering Facility: [facility] Address: [address] [place] [address] Performed By: #### 2 4321-2 ####[facility] [id number] [place] [address] [place] CO2 [Moles/Vol] 22 mmol/L Normal 22-30 [facility] Comment on above: Order Comment: Speci men Type: BLOOD SPECIMENOrdering Facility: [facility] Address: [address] [place], [place] [address] Performed By: #### 2 4321-2 ####[facility] [id number] [place] [address] [place] Creatinine [Mass/Vol] 0.74 mg/dL Normal 0.73-1.22 [facility] Comment on above: Order Comment: Speci men Type: BLOOD SPECIMENOrdering Facility: [facility] Address: [address] [place], [place] [address] Performed By: #### 2 4321-2 ####[facility] [id number] [place] [address] [place] ESTIMATED GLOMERULAR FILTRATION RATE 99 mL/min/1.73m??? Normal >=60 [facility] Comment on above: Order Comment: Cierra cartwright Type: BLOOD SPECIMENOrdering Facility: [facility] Address: [address] [place] [address] Result Comment: Ignacia mated Glomerular Filtration Rate [...] actual GFR. Performed By: #### 2 4321-2 ####[facility] [id number] [place] [address] [place] Glucose [Mass/Vol] 90 mg/dL Normal 74-99 [facility] Comment on above: Order Comment: Cierra cartwright Type: BLOOD SPECIMENOrdering Facility: [facility] Address: [address] [place] [address] Result Comment: The [place] [employer] (ADA) provides guidance for cutoff [...] Standards of Medical Care in Diabetes 2016, [place] [employer]. Diabetes Care. 2016.39(Suppl 1). Performed By: #### 2 4321-2 ####[facility] [id number] [place] [address] [place] Potassium [Moles/Vol] 3.6 mmol/L Low 3.7-5.1 [facility] Comment on above: Order Comment: Cierra cartwright Type: BLOOD SPECIMENOrdering Facility: [facility] Address: [address] [place] [address] Performed By: #### 2 4321-2 ####[facility] [id number] [place] [address] [place] Sodium [Moles/Vol] 140 mmol/L Normal 136-144 [facility] Comment on above: Order Comment: Speci men Type: BLOOD SPECIMENOrdering Facility: [facility] Address: [address] Performed By: #### 2 4321-2 ####[facility] [id number] [place] [address] [place] Urea nitrogen [Mass/Vol] 7 mg/dL Low 9-24 [facility] Comment on above: Order Comment: Speci men Type: BLOOD SPECIMENOrdering Facility: [facility] Address: [address] Performed By: #### 2 4321-2 ####[facility] [id number] [place] [address] [place] CBC W Auto Differential pane l (Bld)on 10-10-2022 Basophils (Bld) [#/Vol] 0.05 10*3/uL Normal <0.11 [facility] Comment on above: Order Comment: Speci men Type: BLOOD SPECIMENOrdering Facility: [facility] Address: [address] Performed By: #### 5 7021-8 ####[facility] [id number] [place] [address] [place] Basophils/100 WBC (Bld) 0.7 % Normal [facility] Comment on above: Order Comment: Speci men Type: BLOOD SPECIMENOrdering Facility: [facility] Address: [address] Performed By: #### 5 7021-8 ####[facility] [id number] [place] [address] [place] Differential cell count method Nom (Bld) Auto Normal [facility] Comment on above: Order Comment: Speci men Type: BLOOD SPECIMENOrdering Facility: [facility] Address: [address] [place] [address] Performed By: #### 5 7021-8 ####[facility] [id number] [place] [address] [place] Eosinophils (Bld) [#/Vol] 0.26 10*3/uL Normal <0.46 [facility] Comment on above: Order Comment: Speci men Type: BLOOD SPECIMENOrdering Facility: [facility] Address: [address] [place] [address] Performed By: #### 5 7021-8 ####[facility] [id number] [place] [address] [place] Eosinophils/100 WBC (Bld) 3.6 % Normal [facility] Comment on above: Order Comment: Speci men Type: BLOOD SPECIMENOrdering Facility: [facility] Address: [address] [place], [place] [address] Performed By: #### 5 7021-8 ####[facility] [id number] [place] [address] [place] Erythrocyte distribution width (RBC) [Ratio] 14.0 % Normal 11.5-15.0 [facility] Comment on above: Order Comment: Speci men Type: BLOOD SPECIMENOrdering Facility: [facility] Address: [address] [place], [place] [address] Performed By: #### 5 7021-8 ####[facility] [id number] [place] [address] [place] Hematocrit (Bld) [Volume fraction] 32.2 % Low 39.0-51.0 [facility] Comment on above: Order Comment: Speci men Type: BLOOD SPECIMENOrdering Facility: [facility] Address: [address] Performed By: #### 5 7021-8 ####[facility] [id number] [place] [address] [place] Hemoglobin (Bld) [Mass/Vol] 10.4 g/dL Low 13.0-17.0 [facility] Comment on above: Order Comment: Speci men Type: BLOOD SPECIMENOrdering Facility: [facility] Address: [address] Performed By: #### 5 7021-8 ####[facility] [id number] [place] [address] [place] Immature granulocytes (Bld) [#/Vol] 0.03 10*3/uL Normal <0.10 [facility] Comment on above: Order Comment: Speci men Type: BLOOD SPECIMENOrdering Facility: [facility] Address: [address] Performed By: #### 5 7021-8 ####[facility] [id number] [place] [address] [place] Immature granulocytes/100 WBC (Bld) 0.4 % Normal [facility] Comment on above: Order Comment: Speci men Type: BLOOD SPECIMENOrdering Facility: [facility] Address: [address] Performed By: #### 5 7021-8 ####[facility] [id number] [place] [address] [place] Lymphocytes (Bld) [#/Vol] 2.29 10*3/uL Normal 1.00-4.00 [facility] Comment on above: Order Comment: Speci men Type: BLOOD SPECIMENOrdering Facility: [facility] Address: [address] [place], [place] [address] Performed By: #### 5 7021-8 ####[facility] [id number] [address] [place] Lymphocytes/100 WBC (Bld) 31.4 % Normal [facility] Comment on above: Order Comment: Speci men Type: BLOOD SPECIMENOrdering Facility: [facility] Address: [address] [place] [address] Performed By: #### 5 7021-8 ####[facility] [id number] [address] MCH (RBC) [Entitic mass] 27.4 pg Normal 26.0-34.0 [facility] Comment on above: Order Comment: Speci men Type: BLOOD SPECIMENOrdering Facility: [facility] Address: [address] [place] [address] Performed By: #### 5 7021-8 ####[facility] [id number] [address] MCHC (RBC) [Mass/Vol] 32.3 g/dL Normal 30.5-36.0 [facility] Comment on above: Order Comment: Speci men Type: BLOOD SPECIMENOrdering Facility: [facility] Address: [address] [place], [place] [address] Performed By: #### 5 7021-8 ####[facility] [id number] [address] [place] MCV (RBC) [Entitic vol] 84.7 fL Normal 80.0-100.0 [facility] Comment on above: Order Comment: Speci men Type: BLOOD SPECIMENOrdering Facility: [facility] Address: [address] [place], [place] [address] Performed By: #### 5 7021-8 ####[facility] [id number] [address] [place] Monocytes (Bld) [#/Vol] 0.72 10*3/uL Normal <0.87 [facility] Comment on above: Order Comment: Speci men Type: BLOOD SPECIMENOrdering Facility: [facility] Address: [address] Performed By: #### 5 7021-8 ####[facility] [id number] [place] [address] [place] Monocytes/100 WBC (Bld) 9.9 % Normal [facility] Comment on above: Order Comment: Speci men Type: BLOOD SPECIMENOrdering Facility: [facility] Address: [address] Performed By: #### 5 7021-8 ####[facility] [id number] [place] [address] [place] Neutrophils (Bld) [#/Vol] 3.94 10*3/uL Normal 1.45-7.50 [facility] Comment on above: Order Comment: Speci men Type: BLOOD SPECIMENOrdering Facility: [facility] Address: [address] Performed By: #### 5 7021-8 ####[facility] [id number] [place] [address] [place] Neutrophils/100 WBC (Bld) 54.0 % Normal [facility] Comment on above: Order Comment: Speci men Type: BLOOD SPECIMENOrdering Facility: [facility] Address: [address] Performed By: #### 5 7021-8 ####[facility] [id number] [place] [address] [place] Nucleated RBC (Bld) [#/Vol] 10*3/uL Normal <0.01 [facility] Comment on above: Order Comment: Speci men Type: BLOOD SPECIMENOrdering Facility: [facility] Address: [address] Performed By: #### 5 7021-8 ####[facility] [id number] [place] [address] [place] Nucleated RBC/100 WBC (Bld) [Ratio] 0.0 /100 WBC Normal [facility] Comment on above: Order Comment: Speci men Type: BLOOD SPECIMENOrdering Facility: [facility] Address: [address] [place], [place] [address] Performed By: #### 5 7021-8 ####[facility] [id number] [place] [address] [place] Platelet mean volume (Bld) [Entitic vol] 10.0 fL Normal 9.0-12.7 [facility] Comment on above: Order Comment: Speci men Type: BLOOD SPECIMENOrdering Facility: [facility] Address: [address] [place], [place] [address] Performed By: #### 5 7021-8 ####[facility] [id number] [place] [address] [place] Platelets (Bld) [#/Vol] 246 10*3/uL Normal 150-400 [facility] Comment on above: Order Comment: Speci men Type: BLOOD SPECIMENOrdering Facility: [facility] Address: [address] [place] [address] Performed By: #### 5 7021-8 ####[facility] [id number] [place] [address] [place] RBC (Bld) [#/Vol] 3.80 10*6/uL Low 4.20-6.00 [facility] Comment on above: Order Comment: Speci men Type: BLOOD SPECIMENOrdering Facility: [facility] Address: [address] [place] [address] Performed By: #### 5 7021-8 ####[facility] [id number] [place] [address] [place] WBC (Bld) [#/Vol] 7.29 10*3/uL Normal 3.70-11.00 [facility] Comment on above: Order Comment: Speci men Type: BLOOD SPECIMENOrdering Facility: [facility] Address: [address] Performed By: #### 5 7021-8 ####[facility] [id number] [place] [address] [place] XR CHEST 1V FRONTAL PORTon 0 10-10-2022 XR CHEST 1V FRONTAL PORT Normal [facility] HISTORY PHYSICALon HISTORY PHYSICAL Normal [facility] CASE MANAGEMon 09-26-2022 CASE MANAGEM Normal [facility] CNDSon 09-26-2022 CNDS Normal [facility] Renal function 2000 panelon 09-26-2022 Albumin [Mass/Vol] 3.3 g/dL Low 3.9-4.9 [facility] Comment on above: Order Comment: Speci men Type: BLOOD SPECIMENOrdering Facility: [facility] Address: [address] [place] [address] Performed By: #### 2 4362-6 ####[facility] [id number] [place] [address] [place] Anion gap [Moles/Vol] 9 mmol/L Normal 9-18 [facility] Comment on above: Order Comment: Speci men Type: BLOOD SPECIMENOrdering Facility: [facility] Address: [address] Performed By: #### 2 4362-6 ####[facility] [id number] [place] [address] [place] Calcium [Mass/Vol] 9.0 mg/dL Normal 8.5-10.2 [facility] Comment on above: Order Comment: Speci men Type: BLOOD SPECIMENOrdering Facility: [facility] Address: [address] Performed By: #### 2 4362-6 ####[facility] [id number] [place] [address] [place] Chloride [Moles/Vol] 105 mmol/L Normal 97-105 [facility] Comment on above: Order Comment: Speci men Type: BLOOD SPECIMENOrdering Facility: [facility] Address: [address] [place] [address] Performed By: #### 2 4362-6 ####[facility] [id number] [place] [address] [place] CO2 [Moles/Vol] 23 mmol/L Normal 22-30 [facility] Comment on above: Order Comment: Speci men Type: BLOOD SPECIMENOrdering Facility: [facility] Address: [address] [place] [address] Performed By: #### 2 4362-6 ####[facility] [id number] [place] [address] [place] Creatinine [Mass/Vol] 0.74 mg/dL Normal 0.73-1.22 [facility] Comment on above: Order Comment: Speci men Type: BLOOD SPECIMENOrdering Facility: [facility] Address: [address] [place] [address] Performed By: #### 2 4362-6 ####[facility] [id number] [address] [place] ESTIMATED GLOMERULAR FILTRATION RATE 99 mL/min/1.73m??? Normal >=60 [facility] Comment on above: Order Comment: Speci men Type: BLOOD SPECIMENOrdering Facility: [facility] Address: [address] [place] [address] Result Comment: Ignacia mated Glomerular Filtration Rate [...] actual GFR. Performed By: #### 2 4362-6 ####[facility] [id number] [place] [address] [place] Glucose [Mass/Vol] 104 mg/dL High 74-99 [facility] Comment on above: Order Comment: Speci men Type: BLOOD SPECIMENOrdering Facility: [facility] Address: [address] [phone] Result Comment: The [place] Diabetes [employer] (ADA) provides guidance for cutoff [...] Standards of Medical Care in Diabetes 2016, [place] [employer]. Diabetes Care. 2016.39(Suppl 1). Performed By: #### 2 4362-6 ####[facility] [id number] [place] [address] [place] Phosphate [Mass/Vol] 2.6 mg/dL Low 2.7-4.8 [facility] Comment on above: Order Comment: Speci men Type: BLOOD SPECIMENOrdering Facility: [facility] Address: [address] [place] [address] Performed By: #### 2 4362-6 ####[facility] [id number] [address] [address] [place] Potassium [Moles/Vol] 3.9 mmol/L Normal 3.7-5.1 [facility] Comment on above: Order Comment: Speci men Type: BLOOD SPECIMENOrdering Facility: [facility] Address: [address] [place] [address] Performed By: #### 2 4362-6 ####[facility] [id number] [place] [address] [place] Sodium [Moles/Vol] 137 mmol/L Normal 136-144 [facility] Comment on above: Order Comment: Speci men Type: BLOOD SPECIMENOrdering Facility: [facility] Address: [address] [place] [address] Performed By: #### 2 4362-6 ####[facility] [id number] [place] [address] [place] Urea nitrogen [Mass/Vol] 5 mg/dL Low 9-24 [facility] Comment on above: Order Comment: Speci men Type: BLOOD SPECIMENOrdering Facility: [facility] Address: [address] [place] [address] Performed By: #### 2 4362-6 ####[facility] [id number] [place] [address] [place] CASE MANAGEMon 09-25-2022 CASE MANAGEM Normal [facility] NURSING PROGon 09-25-2022 NURSING PROG Normal [facility] Renal function 2000 panelon 09-25-2022 Albumin [Mass/Vol] 3.1 g/dL Low 3.9-4.9 [facility] Comment on above: Order Comment: Speci men Type: BLOOD SPECIMENOrdering Facility: [facility] Address: [address] Performed By: #### 2 4362-6, 2571-8 ####[facility] [id number] [place] [address] [place] Anion gap [Moles/Vol] 10 mmol/L Normal 9-18 [facility] Comment on above: Order Comment: Speci men Type: BLOOD SPECIMENOrdering Facility: [facility] Address: [address] Performed By: #### 2 4362-6, 2570-10 ####[facility] [id number] [place] [address] [place] Calcium [Mass/Vol] 8.7 mg/dL Normal 8.5-10.2 [facility] Comment on above: Order Comment: Speci men Type: BLOOD SPECIMENOrdering Facility: [facility] Address: [address] Performed By: #### 2 4362-6, 2570-10 ####[facility] [id number] [place] [address] [place] Chloride [Moles/Vol] 106 mmol/L High 97-105 [facility] Comment on above: Order Comment: Speci men Type: BLOOD SPECIMENOrdering Facility: [facility] Address: [address] Performed By: #### 2 4362-6, 2570-10 ####[facility] [id number] [place] [address] [place] CO2 [Moles/Vol] 23 mmol/L Normal 22-30 [facility] Comment on above: Order Comment: Speci men Type: BLOOD SPECIMENOrdering Facility: [facility] Address: [address] Performed By: #### 2 4362-6, 2570-10 ####[facility] [id number] [place] [address] [place] Creatinine [Mass/Vol] 0.73 mg/dL Normal 0.73-1.22 [facility] Comment on above: Order Comment: Speci men Type: BLOOD SPECIMENOrdering Facility: [facility] Address: [address] Performed By: #### 2 4362-6, 2570-8 ####[facility] [id number] [address] STATES OF [facility] ESTIMATED GLOMERULAR FILTRATION RATE 100 mL/min/1.73m??? Normal >=60 [facility] Comment on above: Order Comment: Cierra cartwright Type: BLOOD SPECIMENOrdering Facility: [facility] Address: [address] [place] [address] Result Comment: Ignacia mated Glomerular Filtration Rate [...] actual GFR. Performed By: #### 2 4362-6, 2570-8 ####[facility] [id number] [address] OF [facility] Glucose [Mass/Vol] 83 mg/dL Normal 74-99 [facility] Comment on above: Order Comment: Cierra cartwright Type: BLOOD SPECIMENOrdering Facility: [facility] Address: [address] [place] [address] Result Comment: The [place] Diabetes Association (ADA) provides guidance for cutoff [...] Standards of Medical Care in Diabetes 2016, [place] [employer]. Diabetes Care. 2016.39(Suppl 1). Performed By: #### 2 4362-6, 257-8 ####[facility] [id number] [place] [address] [place] Phosphate [Mass/Vol] 2.6 mg/dL Low 2.7-4.8 [facility] Comment on above: Order Comment: Speci men Type: BLOOD SPECIMENOrdering Facility: [facility] Address: [address] [place], [place] [address] Performed By: #### 2 4362-6, 8 ####[facility] [id number] [place] [address] [place] Potassium [Moles/Vol] 4.1 mmol/L Normal 3.7-5.1 [facility] Comment on above: Order Comment: Speci men Type: BLOOD SPECIMENOrdering Facility: [facility] Address: [address] [place], [place] [address] Performed By: #### 2 4362-6, 8 ####[facility] [id number] [place] [address] [place] Sodium [Moles/Vol] 139 mmol/L Normal 136-144 [facility] Comment on above: Order Comment: Speci men Type: BLOOD SPECIMENOrdering Facility: [facility] Address: [address] [place], [place] [address] Performed By: #### 2 4362-6, 8 ####[facility] [id number] [place] [address] [place] Urea nitrogen [Mass/Vol] 7 mg/dL Low 9-24 [facility] Comment on above: Order Comment: Speci men Type: BLOOD SPECIMENOrdering Facility: [facility] Address: [address] [place] [address] Performed By: #### 2 4362-6, 8 ####[facility] [id number] [place] [address] [place] Trigl SerPl-mCncon 3 Triglyceride [Mass/Vol] 172 mg/dL High <150 C [facility] Comment on above: Order Comment: Speci men Type: BLOOD SPECIMENOrdering Facility: [facility] Address: [address] [place], [place] [address] Result Comment: <150 mg/dL, Normal 150-199 mg/dL, Borderline high 200-499 mg/dL, High>499 mg/dL, Very highReference:1. National Cholesterol Education Program ATP III Guideline At-A-Glance Quick Desk Reference: National Heart, Lung, and Blood [place]. National Institutes of Health. 2001: NIH Publication No. 01-3305. Performed By: #### 2 4362-6, 2571-8 ####[facility] [id number] [address] OF [facility] Triglyceride [Mass/Vol]on FASTING TIME 8 hrs Normal [facility] Comment on above: Order Comment: Speci men Type: BLOOD SPECIMENOrdering Facility: [facility] Address: [address] [place] [address] Performed By: #### 2 4362-6, 2571-8 ####[facility] [id number] [address] OF [facility] XR ABDOMEN 1V SUPINEon 09-25 XR ABDOMEN 1V SUPINE Normal [facility] BRIEF OP NOTon 09-24-2022 BRIEF OP NOT Normal [facility] CASE MANAGEMon 09-24-2022 CASE MANAGEM Normal [facility] CASE MANAGEM Normal [facility] CONSULT PROGon 09-24-2022 CONSULT PROG Normal [facility] IR CENTRAL CATH PLACEMENTon 09-24-2022 IR CENTRAL CATH PLACEMENT Normal [facility] Magnesium SerPl-mCncon 09-24 Magnesium [Mass/Vol] 2.0 mg/dL Normal 1.7-2.3 [facility] Comment on above: Order Comment: Speci men Type: BLOOD SPECIMENOrdering Facility: [facility] Address: [address] [place] [address] Performed By: #### 1 9123-9, 33925-2 ####[facility] [id number] [place] [address] [place] PT EDon 09-24-2022 PT ED Normal [facility] Renal function 2000 panelon 09-24-2022 Albumin [Mass/Vol] 2.9 g/dL Low 3.9-4.9 [facility] Comment on above: Order Comment: Speci men Type: BLOOD SPECIMENOrdering Facility: [facility] Address: [address] Performed By: #### 1 9123-9, 85225-5 ####[facility] [id number] [place] [address] [place] Anion gap [Moles/Vol] 7 mmol/L Low 9-18 [facility] Comment on above: Order Comment: Speci men Type: BLOOD SPECIMENOrdering Facility: [facility] Address: [address] Performed By: #### 1 9123-9, 70525-6 ####[facility] [id number] [place] [address] [place] Calcium [Mass/Vol] 8.6 mg/dL Normal 8.5-10.2 [facility] Comment on above: Order Comment: Speci men Type: BLOOD SPECIMENOrdering Facility: [facility] Address: [address] [place] [address] Performed By: #### 1 9123-9, 55869-8 ####[facility] [id number] [place] [address] [place] Chloride [Moles/Vol] 106 mmol/L High 97-105 [facility] Comment on above: Order Comment: Speci men Type: BLOOD SPECIMENOrdering Facility: [facility] Address: [address] Performed By: #### 1 9123-9, 05791-2 ####[facility] [id number] [place] [address] [place] CO2 [Moles/Vol] 24 mmol/L Normal 22-30 [facility] Comment on above: Order Comment: Speci men Type: BLOOD SPECIMENOrdering Facility: [facility] Address: [address] [place] [address] Performed By: #### 1 91239, ####[facility] [id number] [place] [address] [place] Creatinine [Mass/Vol] 0.71 mg/dL Low 0.73-1.22 [facility] Comment on above: Order Comment: Speci men Type: BLOOD SPECIMENOrdering Facility: [facility] Address: [address] [place] [address] Performed By: #### 1 91239, ####[facility] [id number] [place] [address] [place] ESTIMATED GLOMERULAR FILTRATION RATE 101 mL/min/1.73m??? Normal >=60 [facility] Comment on above: Order Comment: Speci men Type: BLOOD SPECIMENOrdering Facility: [facility] Address: [address] [place] [address] Result Comment: Ignacia mated Glomerular Filtration Rate [...] actual GFR. Performed By: #### 1 9123-9, 20540-0 ####[facility] [id number] [place] [address] [place] Glucose [Mass/Vol] 96 mg/dL Normal 74-99 [facility] Comment on above: Order Comment: Cierra cartwright Type: BLOOD SPECIMENOrdering Facility: [facility] Address: [address] [place] [place] [address] Result Comment: The [place] Diabetes Association (ADA) provides guidance for cutoff [...] Standards of Medical Care in Diabetes 2016, [place] Diabetes Association. Diabetes Care. 2016.39(Suppl 1). Performed By: #### 1 9123-9, 20036-4 ####[facility] [id number] [place] [address] [place] Phosphate [Mass/Vol] 3.2 mg/dL Normal 2.7-4.8 [facility] Comment on above: Order Comment: Cierra cartwright Type: BLOOD SPECIMENOrdering Facility: [facility] Address: [address] [place], [place] [address] Performed By: #### 1 9123-9, 52822-5 ####[facility] [id number] [place] [address] [place] Potassium [Moles/Vol] 3.9 mmol/L Normal 3.7-5.1 [facility] Comment on above: Order Comment: Cierra cartwright Type: BLOOD SPECIMENOrdering Facility: [facility] Address: [address] Performed By: #### 1 9123-9, 24210-3 ####[facility] [id number] [place] [address] [place] Sodium [Moles/Vol] 137 mmol/L Normal 136-144 [facility] Comment on above: Order Comment: Speci men Type: BLOOD SPECIMENOrdering Facility: [facility] Address: [address] [place] [address] Performed By: #### 1 9123-9, 26209-4 ####[facility] [id number] [place] [address] [place] Urea nitrogen [Mass/Vol] 9 mg/dL Normal 9-24 [facility] Comment on above: Order Comment: Speci men Type: BLOOD SPECIMENOrdering Facility: [facility] Address: [address] [place] [address] Performed By: #### 1 9123-9, 15252-4 ####[facility] [id number] [place] [address] [place] SARS-CoV-2 RNA Resp Ql ROSSANA+p robeon 09-24-2022 SARS-CoV-2 (COVID-19) RNA ROSSANA+probe Ql (Resp) COVID 19 RESULT: Not detected The method used is RT-PCR or an equivalent NAAT method. Reference Range(the expected result in uninfected individuals): Not detected Normal [facility] Comment on above: Performed By: #### 9 4500-6 ####[facility] [id number] [place] [address] [place] THERAPY NTon 09-24-2022 THERAPY NT Normal [facility] XR ABDOMEN 1V SUPINEon 09-24 XR ABDOMEN 1V SUPINE Normal [facility] CASE MANAGEMon 09-23-2022 CASE MANAGEM Normal [facility] CONSULT PROGon 09-23-2022 CONSULT PROG Normal [facility] THERAPY NTon 09-23-2022 THERAPY NT Normal [facility] THERAPY NT Normal [facility] XR ABDOMEN 1V SUPINEon 09-23 XR ABDOMEN 1V SUPINE Normal [facility] ALLIED HEALTHon 09-22-2022 ALLIED HEALTH Normal [facility] Bacteria Bld Culton 09-23-19 23 Bacteria identified Cx Nom (Bld) CULTURE, BLOOD: No growth 5 days Normal [facility] Comment on above: Performed By: #### 6 00-7 ####[facility] [id number] [place] [address] [place] CASE MGT INIT ASSESon 2022 CASE MGT INIT ASSES Normal [facility] CBC panel Auto (Bld)on 09-22 Erythrocyte distribution width (RBC) [Ratio] 13.8 % Normal 11.5-15.0 [facility] Comment on above: Order Comment: Speci men Type: BLOOD SPECIMENOrdering Facility: [facility] Address: [address] [place] [address] Performed By: #### 5 8410-2 ####[facility] [id number] [address] [place] Hematocrit (Bld) [Volume fraction] 30.0 % Low 39.0-51.0 [facility] Comment on above: Order Comment: Speci men Type: BLOOD SPECIMENOrdering Facility: [facility] Address: [address] [place] [address] Performed By: #### 5 8410-2 ####[facility] [id number] [place] [address] [place] Hemoglobin (Bld) [Mass/Vol] 9.7 g/dL Low 13.0-17.0 [facility] Comment on above: Order Comment: Speci men Type: BLOOD SPECIMENOrdering Facility: [facility] Address: [address] [place] [address] Performed By: #### 5 8410-2 ####[facility] [id number] [place] [address] [place] MCH (RBC) [Entitic mass] 27.7 pg Normal 26.0-34.0 [facility] Comment on above: Order Comment: Speci men Type: BLOOD SPECIMENOrdering Facility: [facility] Address: [address] Performed By: #### 5 8410-2 ####[facility] [id number] [address] [place] MCHC (RBC) [Mass/Vol] 32.3 g/dL Normal 30.5-36.0 [facility] Comment on above: Order Comment: Speci men Type: BLOOD SPECIMENOrdering Facility: [facility] Address: [address] [place] [address] Performed By: #### 5 8410-2 ####[facility] [id number] [address] [place] MCV (RBC) [Entitic vol] 85.7 fL Normal 80.0-100.0 [facility] Comment on above: Order Comment: Speci men Type: BLOOD SPECIMENOrdering Facility: [facility] Address: [address] [place], [place] [address] Performed By: #### 5 8410-2 ####[facility] [id number] [address] [place] Nucleated RBC (Bld) [#/Vol] 0.02 10*3/uL High <0.01 [facility] Comment on above: Order Comment: Speci men Type: BLOOD SPECIMENOrdering Facility: [facility] Address: [address] Performed By: #### 5 8410-2 ####[facility] [id number] [address] [place] Platelet mean volume (Bld) [Entitic vol] 10.9 fL Normal 9.0-12.7 [facility] Comment on above: Order Comment: Speci men Type: BLOOD SPECIMENOrdering Facility: [facility] Address: [address] [place], [place] [address] Performed By: #### 5 8410-2 ####[facility] [id number] [place] [address] [place] Platelets (Bld) [#/Vol] 137 10*3/uL Low 150-400 [facility] Comment on above: Order Comment: Speci men Type: BLOOD SPECIMENOrdering Facility: [facility] Address: [address] [place] [address] Result Comment: Resu lts checked and verified.No clot detected. Performed By: #### 5 8410-2 ####[facility] [id number] [place] [address] [place] RBC (Bld) [#/Vol] 3.50 10*6/uL Low 4.20-6.00 [facility] Comment on above: Order Comment: Speci men Type: BLOOD SPECIMENOrdering Facility: [facility] Address: [address] [place] [address] Performed By: #### 5 8410-2 ####[facility] [id number] [place] [address] [place] WBC (Bld) [#/Vol] 6.05 10*3/uL Normal 3.70-11.00 [facility] Comment on above: Order Comment: Speci men Type: BLOOD SPECIMENOrdering Facility: [facility] Address: [address] [place] [address] Performed By: #### 5 8410-2 ####[facility] [id number] [place] [id number] [place] CONSULTon 09-22-2022 CONSULT Normal [facility] CONSULT PROGon 09-22-2022 CONSULT PROG Normal [facility] Comprehensive metabolic 2000 panelon 09-22-2022 Albumin [Mass/Vol] 3.0 g/dL Low 3.9-4.9 [facility] Comment on above: Order Comment: Speci men Type: BLOOD SPECIMENOrdering Facility: [facility] Address: [address] [place], [place] [address] Performed By: #### 2 571-8, 2777-1, 92670-3, 42329-2 ####[facility] [id number] [place] [address] [place] ALP [Catalytic activity/Vol] 53 U/L Normal 38-113 [facility] Comment on above: Order Comment: Speci men Type: BLOOD SPECIMENOrdering Facility: [facility] Address: [address] [place] [address] Performed By: #### 2 571-8, 2777-1, 42536-3, 84156-6 ####[facility] [id number] [place] [address] [place] ALT [Catalytic activity/Vol] 18 U/L Normal 10-54 [facility] Comment on above: Order Comment: Speci men Type: BLOOD SPECIMENOrdering Facility: [facility] Address: [address] [place] [address] Performed By: #### 2 571-8, 2777-1, 10036-1, 58078-9 ####[facility] [id number] [place] [address] [place] Anion gap [Moles/Vol] 9 mmol/L Normal 9-18 [facility] Comment on above: Order Comment: Speci men Type: BLOOD SPECIMENOrdering Facility: [facility] Address: [address] [place] [address] Performed By: #### 2 571-8, 2777-1, 88138-2, 12387-5 ####[facility] [id number] [place] [address] [place] AST [Catalytic activity/Vol] 16 U/L Normal 14-40 [facility] Comment on above: Order Comment: Speci men Type: BLOOD SPECIMENOrdering Facility: [facility] Address: [address] Performed By: #### 2 571-8, 2777-1, 04037-4, 01268-8 ####[facility] [id number] [place] [address] [place] Bilirubin [Mass/Vol] 0.9 mg/dL Normal 0.2-1.3 [facility] Comment on above: Order Comment: Speci men Type: BLOOD SPECIMENOrdering Facility: [facility] Address: [address] [place] [address] Performed By: #### 2 571-8, 277-1, , ####[facility] [id number] [place] [address] [place] Calcium [Mass/Vol] 8.9 mg/dL Normal 8.5-10.2 [facility] Comment on above: Order Comment: Speci men Type: BLOOD SPECIMENOrdering Facility: [facility] Address: [address] [place] [address] Performed By: #### 2 571-8, 277-1, , ####[facility] [id number] [place] [address] [place] Chloride [Moles/Vol] 107 mmol/L High 97-105 [facility] Comment on above: Order Comment: Speci men Type: BLOOD SPECIMENOrdering Facility: [facility] Address: [address] [place], [place] [address] Performed By: #### 2 571-8, 277-1, , ####[facility] [id number] [place] [address] [place] CO2 [Moles/Vol] 24 mmol/L Normal 22-30 [facility] Comment on above: Order Comment: Speci men Type: BLOOD SPECIMENOrdering Facility: [facility] Address: [address] [phone] Performed By: #### 2 571-8, 2777-1, 90957-0, 40445-9 ####[facility] [id number] [place] [address] [place] Creatinine [Mass/Vol] 0.84 mg/dL Normal 0.73-1.22 [facility] Comment on above: Order Comment: Speci men Type: BLOOD SPECIMENOrdering Facility: [facility] Address: [address] [place] [address] Performed By: #### 2 571-8, 277-1, 53064-7, ####[facility] [id number] [place] [address] [place] ESTIMATED GLOMERULAR FILTRATION RATE 96 mL/min/1.73m??? Normal >=60 [facility] Comment on above: Order Comment: Speci men Type: BLOOD SPECIMENOrdering Facility: [facility] Address: [address] [address] Result Comment: Ignacia mated Glomerular Filtration Rate [...] reflect actual GFR. Performed By: #### 2 571-8, 2777-1, 79590-0, ####[facility] [id number] [place] [id number] [place] Glucose [Mass/Vol] 121 mg/dL High 74-99 [facility] Comment on above: Order Comment: Speci men Type: BLOOD SPECIMENOrdering Facility: [facility] Address: [address] Result Comment: The [place] Diabetes Association (ADA) provides guidance for cutoff [...] Standards of Medical Care in Diabetes 2016, [place] [employer] Association. Diabetes Care. 2016.39(Suppl 1). Performed By: #### 2 571-8, 2777-1, 59751-9, ####[facility] [id number] [place] [address] [place] Potassium [Moles/Vol] 3.7 mmol/L Normal 3.7-5.1 [facility] Comment on above: Order Comment: Speci men Type: BLOOD SPECIMENOrdering Facility: [facility] Address: [address] [phone] Performed By: #### 2 571-8, 2777-1, , ####[facility] [id number] [place] [address] [place] Protein [Mass/Vol] 6.3 g/dL Normal 6.3-8.0 [facility] Comment on above: Order Comment: Speci men Type: BLOOD SPECIMENOrdering Facility: [facility] Address: [address] [place] [address] Performed By: #### 2 571-8, 2777-1, , ####[facility] [id number] [address] [address] [place] Sodium [Moles/Vol] 140 mmol/L Normal 136-144 [facility] Comment on above: Order Comment: Speci men Type: BLOOD SPECIMENOrdering Facility: [facility] Address: [address] [place] [address] Performed By: #### 2 571-8, 2776-1, , ####[facility] [id number] [place] [address] [place] Urea nitrogen [Mass/Vol] 18 mg/dL Normal 9-24 [facility] Comment on above: Order Comment: Speci men Type: BLOOD SPECIMENOrdering Facility: [facility] Address: [address] [place] [address] Performed By: #### 2 571-8, 2776-1, , ####[facility] [id number] [place] [address] [place] Magnesium SerPl-ncon 09-22 Magnesium [Mass/Vol] 1.6 mg/dL Low 1.7-2.3 [facility] Comment on above: Order Comment: Speci men Type: BLOOD SPECIMENOrdering Facility: [facility] Address: [address] [place] [address] Performed By: #### 2 571-8, 2771, , ####[facility] [id number] [place] [address] [place] Phosphate SerPl-mCncon 09-22 Phosphate [Mass/Vol] 2.4 mg/dL Low 2.7-4.8 [facility] Comment on above: Order Comment: Speci men Type: BLOOD SPECIMENOrdering Facility: [facility] Address: [address] [place], [place] [address] Performed By: #### 2 571-8, 277-1, , ####[facility] [id number] [place] [id number] Trigl SerPl-mCncon 3 Triglyceride [Mass/Vol] 213 mg/dL High <150 C [facility] Comment on above: Order Comment: Speci men Type: BLOOD SPECIMENOrdering Facility: [facility] Address: [place] [address] Result Comment: <150 mg/dL, Normal 150-199 mg/dL, Borderline high 200-499 mg/dL, High>499 mg/dL, Very highReference:1. National Cholesterol Education Program ATP III Guideline At-A-Glance Quick Desk Reference: National Heart, Lung, and Blood [place]. National Institutes of Health. 2001: NIH Publication No. 01-3305. Performed By: #### 2 571-8, 2777-1, 32784-7, 55555-3 ####[facility] [id number] [address] Triglyceride [Mass/Vol]on FASTING TIME 8 hrs Normal [facility] Comment on above: Order Comment: Speci men Type: BLOOD SPECIMENOrdering Facility: [facility] Address: [address] [place] [address] Performed By: #### 2 571-8, 2777-1, 54884-2, ####[facility] [id number] [address] [place] XR ABDOMEN 1V SUPINEon 09-22 XR ABDOMEN 1V SUPINE Normal [facility] CBC panel Auto (Bld)on 09-21 Erythrocyte distribution width (RBC) [Ratio] 14.3 % Normal 11.5-15.0 [facility] Comment on above: Order Comment: Speci men Type: BLOOD SPECIMENOrdering Facility: [facility] Address: [address] [place] [address] Performed By: #### 5 8410-2 ####[facility] [id number] [address] STATES OF [facility] Hematocrit (Bld) [Volume fraction] 30.0 % Low 39.0-51.0 [facility] Comment on above: Order Comment: Speci men Type: BLOOD SPECIMENOrdering Facility: [facility] Address: [address] [place] [address] Performed By: #### 5 8410-2 ####[facility] [id number] [address] [place] Hemoglobin (Bld) [Mass/Vol] 9.4 g/dL Low 13.0-17.0 [facility] Comment on above: Order Comment: Speci men Type: BLOOD SPECIMENOrdering Facility: [facility] Address: [address] [place] [address] Performed By: #### 5 8410-2 ####[facility] [id number] [address] OF [facility] MCH (RBC) [Entitic mass] 27.7 pg Normal 26.0-34.0 [facility] Comment on above: Order Comment: Speci men Type: BLOOD SPECIMENOrdering Facility: [facility] Address: [address] [place], [place] [address] Performed By: #### 5 8410-2 ####[facility] [id number] [address] [place] MCHC (RBC) [Mass/Vol] 31.3 g/dL Normal 30.5-36.0 [facility] Comment on above: Order Comment: Speci men Type: BLOOD SPECIMENOrdering Facility: [facility] Address: [address] [place], [place] [address] Performed By: #### 5 8410-2 ####[facility] [id number] [address] [place] MCV (RBC) [Entitic vol] 88.5 fL Normal 80.0-100.0 [facility] Comment on above: Order Comment: Speci men Type: BLOOD SPECIMENOrdering Facility: [facility] Address: [address] [place] [address] Performed By: #### 5 8410-2 ####[facility] [id number] [place] [address] [place] Nucleated RBC (Bld) [#/Vol] 10*3/uL Normal <0.01 [facility] Comment on above: Order Comment: Speci men Type: BLOOD SPECIMENOrdering Facility: [facility] Address: [address] [place] [address] Performed By: #### 5 8410-2 ####[facility] [id number] [place] [address] [place] Platelet mean volume (Bld) [Entitic vol] 11.3 fL Normal 9.0-12.7 [facility] Comment on above: Order Comment: Speci men Type: BLOOD SPECIMENOrdering Facility: [facility] Address: [address] [place] [address] Performed By: #### 5 8410-2 ####[facility] [id number] [place] [address] [place] Platelets (Bld) [#/Vol] 127 10*3/uL Low 150-400 [facility] Comment on above: Order Comment: Speci men Type: BLOOD SPECIMENOrdering Facility: [facility] Address: [address] [place] [address] Result Comment: Resu lts checked and verified.No clot detected. Performed By: #### 5 8410-2 ####[facility] [id number] [place] [address] [place] RBC (Bld) [#/Vol] 3.39 10*6/uL Low 4.20-6.00 [facility] Comment on above: Order Comment: Speci men Type: BLOOD SPECIMENOrdering Facility: [facility] Address: [address] [place] [address] [place] [address] Performed By: #### 5 8410-2 ####[facility] [id number] [place] [address] [place] WBC (Bld) [#/Vol] 17.24 10*3/uL High 3.70-11.00 [facility] Comment on above: Order Comment: Speci men Type: BLOOD SPECIMENOrdering Facility: [facility] Address: [address] [place] [address] Performed By: #### 5 8410-2 ####[facility] [id number] [place] [address] [place] CONSULTon 09-21-2022 CONSULT Normal [facility] CONSULT PROGon 09-21-2022 CONSULT PROG Normal [facility] CONSULT PROG Normal [facility] Comprehensive metabolic 2000 panelon 09-21-2022 Albumin [Mass/Vol] 3.1 g/dL Low 3.9-4.9 [facility] Comment on above: Order Comment: Speci men Type: BLOOD SPECIMENOrdering Facility: [facility] Address: [place] [address] Performed By: #### 2 777-1, , ####[facility] [id number] [place] [address] [place] ALP [Catalytic activity/Vol] 56 U/L Normal 38-113 [facility] Comment on above: Order Comment: Speci men Type: BLOOD SPECIMENOrdering Facility: [facility] Address: [address] [place] [address] Performed By: #### 2 777-1, , ####[facility] [id number] [place] [id number] [place] ALT [Catalytic activity/Vol] 24 U/L Normal 10-54 [facility] Comment on above: Order Comment: Speci men Type: BLOOD SPECIMENOrdering Facility: [facility] Address: [address] Performed By: #### 2 777-1, , ####[facility] [id number] [place] [address] [place] Anion gap [Moles/Vol] 13 mmol/L Normal 9-18 [facility] Comment on above: Order Comment: Speci men Type: BLOOD SPECIMENOrdering Facility: [facility] Address: [address] [place] [address] Performed By: #### 2 777-1, , ####[facility] [id number] [place] [address] [place] AST [Catalytic activity/Vol] 28 U/L Normal 14-40 [facility] Comment on above: Order Comment: Speci men Type: BLOOD SPECIMENOrdering Facility: [facility] Address: [address] [place] [address] Performed By: #### 2 777-1, , ####[facility] [id number] [place] [address] [place] Bilirubin [Mass/Vol] 0.8 mg/dL Normal 0.2-1.3 [facility] Comment on above: Order Comment: Speci men Type: BLOOD SPECIMENOrdering Facility: [facility] Address: [address] Performed By: #### 2 777-1, , ####[facility] [id number] [place] [id number] [place] Calcium [Mass/Vol] 9.1 mg/dL Normal 8.5-10.2 [facility] Comment on above: Order Comment: Speci men Type: BLOOD SPECIMENOrdering Facility: [facility] Address: [address] [place] [address] Performed By: #### 2 777-1, , ####[facility] [id number] [place] [address] [place] Chloride [Moles/Vol] 107 mmol/L High 97-105 [facility] Comment on above: Order Comment: Speci men Type: BLOOD SPECIMENOrdering Facility: [facility] Address: [address] [place], [place] [address] Performed By: #### 2 777-1, , ####[facility] [id number] [place] [address] [place] CO2 [Moles/Vol] 19 mmol/L Low 22-30 [facility] Comment on above: Order Comment: Speci men Type: BLOOD SPECIMENOrdering Facility: [facility] Address: [address] [place], [place] [address] Performed By: #### 2 777-1, , ####[facility] [id number] [place] [address] [place] Creatinine [Mass/Vol] 1.13 mg/dL Normal 0.73-1.22 [facility] Comment on above: Order Comment: Speci men Type: BLOOD SPECIMENOrdering Facility: [facility] Address: [address] [place], [place] [address] Performed By: #### 2 777-1, , ####[facility] [id number] [place] [address] [place] ESTIMATED GLOMERULAR FILTRATION RATE 71 mL/min/1.73m??? Normal >=60 [facility] Comment on above: Order Comment: Speci men Type: BLOOD SPECIMENOrdering Facility: [facility] Address: [address] [place] [address] [place] [address] Result Comment: Ignacia mated Glomerular Filtration Rate [...] reflect actual GFR. Performed By: #### 2 777-1, , ####[facility] [id number] [address] [address] [place] Glucose [Mass/Vol] 106 mg/dL High 74-99 [facility] Comment on above: Order Comment: Speccarter cartwright Type: BLOOD SPECIMENOrdering Facility: [facility] Address: [address] [place] [id number] Result Comment: The [place] Diabetes [employer] (ADA) provides guidance for cutoff [...] Standards of Medical Care in Diabetes 2016, [place] [employer]. Diabetes Care. 2016.39(Suppl 1). Performed By: #### 2 777-1, , ####[facility] [id number] [place] [id number] [place] Potassium [Moles/Vol] 4.3 mmol/L Normal 3.7-5.1 [facility] Comment on above: Order Comment: Speci men Type: BLOOD SPECIMENOrdering Facility: [facility] Address: [address] [place] [address] Performed By: #### 2 777-1, , ####[facility] [id number] [place] [address] [place] Protein [Mass/Vol] 6.2 g/dL Low 6.3-8.0 [facility] Comment on above: Order Comment: Speci men Type: BLOOD SPECIMENOrdering Facility: [facility] Address: [address] [place] [address] Performed By: #### 2 777-1, , ####[facility] [id number] [place] [address] [place] Sodium [Moles/Vol] 139 mmol/L Normal 136-144 [facility] Comment on above: Order Comment: Speci men Type: BLOOD SPECIMENOrdering Facility: [facility] Address: [address] [place] [address] Performed By: #### 2 777-1, , ####[facility] [id number] [place] [address] [place] Urea nitrogen [Mass/Vol] 27 mg/dL High 9-24 [facility] Comment on above: Order Comment: Speci men Type: BLOOD SPECIMENOrdering Facility: [facility] Address: [address] [place] [address] Performed By: #### 2 777-1, , ####[facility] [id number] [place] [id number] [place] HISTORY PHYSICALon HISTORY PHYSICAL Normal [facility] Magnesium SerPl-mCncon 09-21 Magnesium [Mass/Vol] 1.9 mg/dL Normal 1.7-2.3 [facility] Comment on above: Order Comment: Speci men Type: BLOOD SPECIMENOrdering Facility: [facility] Address: [address] [place] [address] [place] [address] Performed By: #### 2 777-1, , 19523-3 ####[facility] [id number] [place] [address] [place] NURSING PROGon 09-21-2022 NURSING PROG Normal [facility] Phosphate SerPl-mCncon 09-21 Phosphate [Mass/Vol] 2.9 mg/dL Normal 2.7-4.8 [facility] Comment on above: Order Comment: Speci men Type: BLOOD SPECIMENOrdering Facility: [facility] Address: [address] Performed By: #### 2 777-1, , ####[facility] [id number] [place] [address] [place] XR ABDOMEN 1V SUPINEon 09-21 XR ABDOMEN 1V SUPINE Normal [facility] ARTERIAL BLOOD GASESon 09-20 Base deficit (BldA) [Moles/Vol] -1 mmol/L Normal -2-0 [facility] Comment on above: Order Comment: Speci men Type: ARTERIAL BLOOD SPECIMENOrdering Facility: [facility] Address: [address] Performed By: #### A LLBG ####[facility] [id number] [place] [address] [place] Body temperature 98.6 [degF] Normal [facility] Comment on above: Order Comment: Speci men Type: ARTERIAL BLOOD SPECIMENOrdering Facility: [facility] Address: [address] Performed By: #### A LLBG ####[facility] [id number] [place] [address] [place] Calcium.ionized (Bld) [Mass/Vol] 1.12 mmol/L Normal 1.08-1.30 [facility] Comment on above: Order Comment: Speci men Type: ARTERIAL BLOOD SPECIMENOrdering Facility: [facility] Address: [address] [place] [address] Performed By: #### A LLBG ####[facility] [id number] [place] [address] [place] Calcium.ionized adjusted to pH 7.4 (BldA) [Moles/Vol] 1.18 mmol/L Normal 1.08-1.30 [facility] Comment on above: Order Comment: Speci men Type: ARTERIAL BLOOD SPECIMENOrdering Facility: [facility] Address: [address] [place] [address] Performed By: #### A LLBG ####[facility] [id number] [place] [address] [place] Carboxyhemoglobin (BldA) [Mass fraction] 0.6 % Normal 0.0-2.0 [facility] Comment on above: Order Comment: Speci men Type: ARTERIAL BLOOD SPECIMENOrdering Facility: [facility] Address: [address] [place] [address] Result Comment: Carb oxyhemoglobin Reference Range for Smokers: 2.0-8.0% Performed By: #### A LLBG ####[facility] [id number] [place] [address] [place] CO2 (Bld) [Partial pressure] 27 mm Hg Low 36-46 [facility] Comment on above: Order Comment: Speci men Type: ARTERIAL BLOOD SPECIMENOrdering Facility: [facility] Address: [address] [place] [address] Performed By: #### A LLBG ####[facility] [id number] [place] [address] [place] CO2 [Moles/Vol] 22 mmol/L Normal 22-28 [facility] Comment on above: Order Comment: Speci men Type: ARTERIAL BLOOD SPECIMENOrdering Facility: [facility] Address: [address] Performed By: #### A LLBG ####[facility] [id number] [place] [address] [place] Glucose [Mass/Vol] 120 mg/dL High 60-105 [facility] Comment on above: Order Comment: Speci men Type: ARTERIAL BLOOD SPECIMENOrdering Facility: [facility] Address: [address] [place] [address] Performed By: #### A LLBG ####[facility] [id number] [place] [address] [place] HCO3 (Bld) [Moles/Vol] 21 mmol/L Low 22-26 [facility] Comment on above: Order Comment: Speci men Type: ARTERIAL BLOOD SPECIMENOrdering Facility: [facility] Address: [address] [place], [place] [address] Performed By: #### A LLBG ####[facility] [id number] [place] [address] [place] Hematocrit (Bld) [Volume fraction] 29.5 % Low 39.0-51.0 [facility] Comment on above: Order Comment: Speci men Type: ARTERIAL BLOOD SPECIMENOrdering Facility: [facility] Address: [address] [place], [place] [address] Performed By: #### A LLBG ####[facility] [id number] [place] [address] [place] Hemoglobin (Bld) [Mass/Vol] 9.5 g/dL Low 13.0-17.0 [facility] Comment on above: Order Comment: Speci men Type: ARTERIAL BLOOD SPECIMENOrdering Facility: [facility] Address: [address] Performed By: #### A LLBG ####[facility] [id number] [place] [address] [place] Lactate [Moles/Vol] 1.3 mmol/L Normal 0.5-2.2 [facility] Comment on above: Order Comment: Speci men Type: ARTERIAL BLOOD SPECIMENOrdering Facility: [facility] Address: [address] [place] [address] Performed By: #### A LLBG ####[facility] [id number] [place] [address] [place] Methemoglobin (Bld) [Mass fraction] 1.4 % Normal 0.0-1.5 [facility] Comment on above: Order Comment: Speci men Type: ARTERIAL BLOOD SPECIMENOrdering Facility: [facility] Address: [address] [place] [address] Performed By: #### A LLBG ####[facility] [id number] [place] [address] [place] O2 THERAPY Ventilator Normal [facility] Comment on above: Order Comment: Speci men Type: ARTERIAL BLOOD SPECIMENOrdering Facility: [facility] Address: [address] [place], [place] [address] Performed By: #### A LLBG ####[facility] [id number] [place] [address] [place] Oxygen (Bld) [Partial pressure] 140 mm Hg High 85-95 [facility] Comment on above: Order Comment: Speci men Type: ARTERIAL BLOOD SPECIMENOrdering Facility: [facility] Address: [address] Performed By: #### A LLBG ####[facility] [id number] [place] [address] [place] Oxyhemoglobin (BldA) [Mass fraction] 97 % Normal 95-98 [facility] Comment on above: Order Comment: Speci men Type: ARTERIAL BLOOD SPECIMENOrdering Facility: [facility] Address: [address] [place] [address] Performed By: #### A LLBG ####[facility] [id number] [place] [address] [place] pH (Bld) 7.50 [pH] High 7.35-7.45 [facility] Comment on above: Order Comment: Speci men Type: ARTERIAL BLOOD SPECIMENOrdering Facility: [facility] Address: [address] [place] [address] Performed By: #### A LLBG ####[facility] [id number] [place] [address] [place] Potassium [Moles/Vol] 4.0 mmol/L Normal 3.5-5.0 [facility] Comment on above: Order Comment: Speci men Type: ARTERIAL BLOOD SPECIMENOrdering Facility: [facility] Address: [address] Performed By: #### A LLBG ####[facility] [id number] [place] [address] [place] Sodium [Moles/Vol] 140 mmol/L Normal 136-144 [facility] Comment on above: Order Comment: Speci men Type: ARTERIAL BLOOD SPECIMENOrdering Facility: [facility] Address: [address] [place] [address] Performed By: #### A LLBG ####[facility] [id number] [place] [address] [place] Basic metabolic 2000 panelon 09-20-2022 Anion gap [Moles/Vol] 13 mmol/L Normal 9-18 [facility] Comment on above: Order Comment: Speci men Type: BLOOD SPECIMENOrdering Facility: [facility] Address: [address] Performed By: #### 2 4321-2 ####[facility] [id number] [place] [address] [place] Calcium [Mass/Vol] 8.3 mg/dL Low 8.5-10.2 [facility] Comment on above: Order Comment: Speci men Type: BLOOD SPECIMENOrdering Facility: [facility] Address: [address] [place] [address] Performed By: #### 2 4321-2 ####[facility] [id number] [place] [address] [place] Chloride [Moles/Vol] 108 mmol/L High 97-105 [facility] Comment on above: Order Comment: Speci men Type: BLOOD SPECIMENOrdering Facility: [facility] Address: [address] [place] [address] Performed By: #### 2 4321-2 ####[facility] [id number] [place] [address] [place] CO2 [Moles/Vol] 18 mmol/L Low 22-30 [facility] Comment on above: Order Comment: Speci men Type: BLOOD SPECIMENOrdering Facility: [facility] Address: [address] [place] [address] Performed By: #### 2 4321-2 ####[facility] [id number] [place] [address] [place] Creatinine [Mass/Vol] 1.66 mg/dL High 0.73-1.22 [facility] Comment on above: Order Comment: Speci men Type: BLOOD SPECIMENOrdering Facility: [facility] Address: [address] [place], [place] [address] Performed By: #### 2 4321-2 ####[facility] [id number] [place] [address] [place] ESTIMATED GLOMERULAR FILTRATION RATE 45 mL/min/1.73m??? Low >=60 [facility] Comment on above: Order Comment: Speci men Type: BLOOD SPECIMENOrdering Facility: [facility] Address: [address] [place] [id number] Result Comment: Ignacia mated Glomerular Filtration Rate [...] actual GFR. Performed By: #### 2 4321-2 ####[facility] [id number] [place] [address] [place] Glucose [Mass/Vol] 116 mg/dL High 74-99 [facility] Comment on above: Order Comment: Cierra cartwright Type: BLOOD SPECIMENOrdering Facility: [facility] Address: [address] [place] [address] Result Comment: The [place] Diabetes [employer] (ADA) provides guidance for cutoff [...] Standards of Medical Care in Diabetes 2016, [place] [employer]. Diabetes Care. 2016.39(Suppl 1). Performed By: #### 2 4321-2 ####[facility] [id number] [place] [address] [place] Potassium [Moles/Vol] 4.1 mmol/L Normal 3.7-5.1 [facility] Comment on above: Order Comment: Cierra cartwright Type: BLOOD SPECIMENOrdering Facility: [facility] Address: [address] [place] [place] [address] Performed By: #### 2 4321-2 ####[facility] [id number] [place] [address] [place] Sodium [Moles/Vol] 139 mmol/L Normal 136-144 [facility] Comment on above: Order Comment: Speci men Type: BLOOD SPECIMENOrdering Facility: [facility] Address: [address] [place] [address] Performed By: #### 2 4321-2 ####[facility] [id number] [place] [address] [place] Urea nitrogen [Mass/Vol] 27 mg/dL High 9-24 [facility] Comment on above: Order Comment: Speci men Type: BLOOD SPECIMENOrdering Facility: [facility] Address: [address] [place] [address] Performed By: #### 2 4321-2 ####[facility] [id number] [place] [address] [place] CBC panel Auto (Bld)on 09-20 Erythrocyte distribution width (RBC) [Ratio] 14.2 % Normal 11.5-15.0 [facility] Comment on above: Order Comment: Speci men Type: BLOOD SPECIMENOrdering Facility: [facility] Address: [address] [place] [address] Performed By: #### 5 8410-2 ####[facility] [id number] [place] [address] [place] Hematocrit (Bld) [Volume fraction] 27.6 % Low 39.0-51.0 [facility] Comment on above: Order Comment: Speci men Type: BLOOD SPECIMENOrdering Facility: [facility] Address: [address] [place] [address] Performed By: #### 5 8410-2 ####[facility] [id number] [place] [address] [place] Hemoglobin (Bld) [Mass/Vol] 9.1 g/dL Low 13.0-17.0 [facility] Comment on above: Order Comment: Speci men Type: BLOOD SPECIMENOrdering Facility: [facility] Address: [address] [place], [place] [address] Performed By: #### 5 8410-2 ####[facility] [id number] [address] [place] MCH (RBC) [Entitic mass] 27.8 pg Normal 26.0-34.0 [facility] Comment on above: Order Comment: Speci men Type: BLOOD SPECIMENOrdering Facility: [facility] Address: [address] [place], [place] [address] Performed By: #### 5 8410-2 ####[facility] [id number] [address] [place] MCHC (RBC) [Mass/Vol] 33.0 g/dL Normal 30.5-36.0 [facility] Comment on above: Order Comment: Speci men Type: BLOOD SPECIMENOrdering Facility: [facility] Address: [address] [place], [place] [address] Performed By: #### 5 8410-2 ####[facility] [id number] [place] [address] [place] MCV (RBC) [Entitic vol] 84.4 fL Normal 80.0-100.0 [facility] Comment on above: Order Comment: Speci men Type: BLOOD SPECIMENOrdering Facility: [facility] Address: [address] [place], [place] [address] Performed By: #### 5 8410-2 ####[facility] [id number] [address] [place] Nucleated RBC (Bld) [#/Vol] 10*3/uL Normal <0.01 [facility] Comment on above: Order Comment: Speci men Type: BLOOD SPECIMENOrdering Facility: [facility] Address: [address] [place] [address] Performed By: #### 5 8410-2 ####[facility] [id number] [place] [address] [place] Platelet mean volume (Bld) [Entitic vol] 11.4 fL Normal 9.0-12.7 [facility] Comment on above: Order Comment: Speci men Type: BLOOD SPECIMENOrdering Facility: [facility] [facility] Address: [address] [place] [address] Performed By: #### 5 8410-2 ####[facility] [id number] [place] [address] [place] Platelets (Bld) [#/Vol] 121 10*3/uL Low 150-400 [facility] Comment on above: Order Comment: Speci men Type: BLOOD SPECIMENOrdering Facility: [facility] Address: [address] [place] [address] Result Comment: Resu lts checked and verified.No clot detected. Performed By: #### 5 8410-2 ####[facility] [id number] [place] [address] [place] RBC (Bld) [#/Vol] 3.27 10*6/uL Low 4.20-6.00 [facility] Comment on above: Order Comment: Speci men Type: BLOOD SPECIMENOrdering Facility: [facility] Address: [address] [place] [address] Performed By: #### 5 8410-2 ####[facility] [id number] [place] [address] [place] WBC (Bld) [#/Vol] 19.14 10*3/uL High 3.70-11.00 [facility] Comment on above: Order Comment: Speci men Type: BLOOD SPECIMENOrdering Facility: [facility] Address: [address] [place] [id number] Performed By: #### 5 8410-2 ####[facility] [id number] [place] [address] [place] CONSULT PROGon 09-20-2022 CONSULT PROG Normal [facility] CONSULT PROG Normal [facility] CONSULT PROG Normal [facility] NUTRITIONon 09-20-2022 NUTRITION Normal [facility] ARTERIAL BLOOD GASESon 09-19 Base deficit (BldA) [Moles/Vol] -2 mmol/L Normal -2-0 [facility] Comment on above: Order Comment: Speci men Type: ARTERIAL BLOOD SPECIMENOrdering Facility: [facility] Address: [address] [place] [address] Performed By: #### A LLBG ####[facility] [id number] [place] [address] [place] Body temperature 98.78 [degF] Normal [facility] Comment on above: Order Comment: Speci men Type: ARTERIAL BLOOD SPECIMENOrdering Facility: [facility] Address: [address] [place] [address] Performed By: #### A LLBG ####[facility] [id number] [address] [place] Calcium.ionized (Bld) [Mass/Vol] 1.11 mmol/L Normal 1.08-1.30 [facility] Comment on above: Order Comment: Speci men Type: ARTERIAL BLOOD SPECIMENOrdering Facility: [facility] Address: [address] [place], [place] [address] Performed By: #### A LLBG ####[facility] [id number] [place] [address] [place] Calcium.ionized adjusted to pH 7.4 (BldA) [Moles/Vol] 1.15 mmol/L Normal 1.08-1.30 [facility] Comment on above: Order Comment: Speci men Type: ARTERIAL BLOOD SPECIMENOrdering Facility: [facility] Address: [address] [address] Performed By: #### A LLBG ####[facility] [id number] [place] [address] [place] Carboxyhemoglobin (BldA) [Mass fraction] 1.3 % Normal 0.0-2.0 [facility] Comment on above: Order Comment: Speci men Type: ARTERIAL BLOOD SPECIMENOrdering Facility: [facility] Address: [address] Result Comment: Carb oxyhemoglobin Reference Range for Smokers: 2.0-8.0% Performed By: #### A LLBG ####[facility] [id number] [place] [address] [place] CO2 (Bld) [Partial pressure] 28 mm Hg Low 36-46 [facility] Comment on above: Order Comment: Speci men Type: ARTERIAL BLOOD SPECIMENOrdering Facility: [facility] Address: [address] [address] Performed By: #### A LLBG ####[facility] [id number] [place] [address] [place] CO2 [Moles/Vol] 21 mmol/L Low 22-28 [facility] Comment on above: Order Comment: Speci men Type: ARTERIAL BLOOD SPECIMENOrdering Facility: [facility] Address: [address] Performed By: #### A LLBG ####[facility] [id number] [place] [address] [place] CO2 adjusted to patient's actual temperature (Bld) [Partial pressure] 28 mmHg Low 36-46 [facility] Comment on above: Order Comment: Speci men Type: ARTERIAL BLOOD SPECIMENOrdering Facility: [facility] Address: [address] Performed By: #### A LLBG ####[facility] [id number] [place] [address] [place] FIO2 30 % Normal [facility] Comment on above: Order Comment: Speci men Type: ARTERIAL BLOOD SPECIMENOrdering Facility: [facility] Address: [address] [place] [address] Performed By: #### A LLBG ####[facility] [id number] [place] [address] [place] Glucose [Mass/Vol] 154 mg/dL High 60-105 [facility] Comment on above: Order Comment: Speci men Type: ARTERIAL BLOOD SPECIMENOrdering Facility: [facility] Address: [address] [place], [place] [address] Performed By: #### A LLBG ####[facility] [id number] [place] [address] [place] HCO3 (Bld) [Moles/Vol] 20 mmol/L Low 22-26 [facility] Comment on above: Order Comment: Speci men Type: ARTERIAL BLOOD SPECIMENOrdering Facility: [facility] Address: [address] [place], [place] [address] Performed By: #### A LLBG ####[facility] [id number] [place] [address] [place] Hematocrit (Bld) [Volume fraction] 29.0 % Low 39.0-51.0 [facility] Comment on above: Order Comment: Speci men Type: ARTERIAL BLOOD SPECIMENOrdering Facility: [facility] Address: [address] [place], [place] [address] Performed By: #### A LLBG ####[facility] [id number] [place] [address] [place] Hemoglobin (Bld) [Mass/Vol] 9.4 g/dL Low 13.0-17.0 [facility] Comment on above: Order Comment: Speci men Type: ARTERIAL BLOOD SPECIMENOrdering Facility: [facility] Address: [address] Performed By: #### A LLBG ####[facility] [id number] [place] [address] [place] Lactate [Moles/Vol] 1.7 mmol/L Normal 0.5-2.2 [facility] Comment on above: Order Comment: Speci men Type: ARTERIAL BLOOD SPECIMENOrdering Facility: [facility] Address: [address] Performed By: #### A LLBG ####[facility] [id number] [place] [address] [place] Methemoglobin (Bld) [Mass fraction] 1.2 % Normal 0.0-1.5 [facility] Comment on above: Order Comment: Speci men Type: ARTERIAL BLOOD SPECIMENOrdering Facility: [facility] Address: [address] Performed By: #### A LLBG ####[facility] [id number] [place] [address] [place] O2 THERAPY Ventilator Normal [facility] Comment on above: Order Comment: Speci men Type: ARTERIAL BLOOD SPECIMENOrdering Facility: [facility] Address: [address] Performed By: #### A LLBG ####[facility] [id number] [place] [address] [place] Oxygen (Bld) [Partial pressure] 133 mm Hg High 85-95 [facility] Comment on above: Order Comment: Speci men Type: ARTERIAL BLOOD SPECIMENOrdering Facility: [facility] Address: [address] Performed By: #### A LLBG ####[facility] [id number] [place] [address] [place] Oxygen adjusted to patient's actual temperature (Bld) [Partial pressure] 133 mmHg High 85-95 [facility] Comment on above: Order Comment: Speci men Type: ARTERIAL BLOOD SPECIMENOrdering Facility: [facility] Address: [address] [place] [address] Performed By: #### A LLBG ####[facility] [id number] [place] [address] [place] Oxyhemoglobin (BldA) [Mass fraction] 97 % Normal 95-98 [facility] Comment on above: Order Comment: Speci men Type: ARTERIAL BLOOD SPECIMENOrdering Facility: [facility] Address: [address] [place] [address] Performed By: #### A LLBG ####[facility] [id number] [place] [address] [place] pH (Bld) 7.47 [pH] High 7.35-7.45 [facility] Comment on above: Order Comment: Speci men Type: ARTERIAL BLOOD SPECIMENOrdering Facility: [facility] Address: [address] [place], [place] [address] Performed By: #### A LLBG ####[facility] [id number] [place] [address] [place] pH adjusted to patient's actual temperature (Bld) 7.47 High 7.35-7.45 [facility] Comment on above: Order Comment: Speci men Type: ARTERIAL BLOOD SPECIMENOrdering Facility: [facility] Address: [address] [place], [place] [address] Performed By: #### A LLBG ####[facility] [id number] [place] [address] [place] Potassium [Moles/Vol] 4.3 mmol/L Normal 3.5-5.0 [facility] Comment on above: Order Comment: Speci men Type: ARTERIAL BLOOD SPECIMENOrdering Facility: [facility] Address: [address] Performed By: #### A LLBG ####[facility] [id number] [place] [address] [place] Sodium [Moles/Vol] 139 mmol/L Normal 136-144 [facility] Comment on above: Order Comment: Speci men Type: ARTERIAL BLOOD SPECIMENOrdering Facility: [facility] Address: [address] Performed By: #### A LLBG ####[facility] [id number] [place] [address] [place] Base deficit (BldA) [Moles/Vol] -4 mmol/L Low -2-0 [facility] Comment on above: Order Comment: Speci men Type: ARTERIAL BLOOD SPECIMENOrdering Facility: [facility] Address: [address] Performed By: #### A LLBG ####[facility] [id number] [place] [address] [place] Body temperature 102.74 [degF] Normal [facility] Comment on above: Order Comment: Speci men Type: ARTERIAL BLOOD SPECIMENOrdering Facility: [facility] Address: [address] Performed By: #### A LLBG ####[facility] [id number] [place] [address] [place] Calcium.ionized (Bld) [Mass/Vol] 1.09 mmol/L Normal 1.08-1.30 [facility] Comment on above: Order Comment: Speci men Type: ARTERIAL BLOOD SPECIMENOrdering Facility: [facility] Address: [address] Performed By: #### A LLBG ####[facility] [id number] [place] [address] [place] Calcium.ionized adjusted to pH 7.4 (BldA) [Moles/Vol] 1.10 mmol/L Normal 1.08-1.30 [facility] Comment on above: Order Comment: Speci men Type: ARTERIAL BLOOD SPECIMENOrdering Facility: [facility] Address: [address] [place], [place] [address] Performed By: #### A LLBG ####[facility] [id number] [place] [address] [place] Carboxyhemoglobin (BldA) [Mass fraction] 0.6 % Normal 0.0-2.0 [facility] Comment on above: Order Comment: Speci men Type: ARTERIAL BLOOD SPECIMENOrdering Facility: [facility] Address: [address] [place], [place] [address] Result Comment: Carb oxyhemoglobin Reference Range for Smokers: 2.0-8.0% Performed By: #### A LLBG ####[facility] [id number] [place] [address] [place] CO2 (Bld) [Partial pressure] 31 mm Hg Low 36-46 [facility] Comment on above: Order Comment: Speci men Type: ARTERIAL BLOOD SPECIMENOrdering Facility: [facility] Address: [address] Performed By: #### A LLBG ####[facility] [id number] [place] [address] [place] CO2 [Moles/Vol] 21 mmol/L Low 22-28 [facility] Comment on above: Order Comment: Speci men Type: ARTERIAL BLOOD SPECIMENOrdering Facility: [facility] Address: [address] Performed By: #### A LLBG ####[facility] [id number] [place] [address] [place] CO2 adjusted to patient's actual temperature (Bld) [Partial pressure] 34 mmHg Low 36-46 [facility] Comment on above: Order Comment: Speci men Type: ARTERIAL BLOOD SPECIMENOrdering Facility: [facility] Address: [address] Performed By: #### A LLBG ####[facility] [id number] [place] [address] [place] FIO2 30 % Normal [facility] Comment on above: Order Comment: Speci men Type: ARTERIAL BLOOD SPECIMENOrdering Facility: [facility] Address: [address] Performed By: #### A LLBG ####[facility] [id number] [address] [place] Glucose [Mass/Vol] 128 mg/dL High 60-105 [facility] Comment on above: Order Comment: Speci men Type: ARTERIAL BLOOD SPECIMENOrdering Facility: [facility] Address: [address] Performed By: #### A LLBG ####[facility] [id number] [address] [place] HCO3 (Bld) [Moles/Vol] 20 mmol/L Low 22-26 [facility] Comment on above: Order Comment: Speci men Type: ARTERIAL BLOOD SPECIMENOrdering Facility: [facility] Address: [address] Performed By: #### A LLBG ####[facility] [id number] [address] [place] Hematocrit (Bld) [Volume fraction] 30.6 % Low 39.0-51.0 [facility] Comment on above: Order Comment: Speci men Type: ARTERIAL BLOOD SPECIMENOrdering Facility: [facility] Address: [address] Performed By: #### A LLBG ####[facility] [id number] [place] [address] [place] Hemoglobin (Bld) [Mass/Vol] 9.9 g/dL Low 13.0-17.0 [facility] Comment on above: Order Comment: Speci men Type: ARTERIAL BLOOD SPECIMENOrdering Facility: [facility] Address: [address] Performed By: #### A LLBG ####[facility] [id number] [place] [address] [place] Lactate [Moles/Vol] 2.8 mmol/L High 0.5-2.2 [facility] Comment on above: Order Comment: Speci men Type: ARTERIAL BLOOD SPECIMENOrdering Facility: [facility] Address: [address] [place], [place] [address] Performed By: #### A LLBG ####[facility] [id number] [address] [place] Methemoglobin (Bld) [Mass fraction] 1.3 % Normal 0.0-1.5 [facility] Comment on above: Order Comment: Speci men Type: ARTERIAL BLOOD SPECIMENOrdering Facility: [facility] Address: [address] Performed By: #### A LLBG ####[facility] [id number] [place] [address] [place] MINUTE VENTILATION 9 L/min Normal [facility] Comment on above: Order Comment: Speci men Type: ARTERIAL BLOOD SPECIMENOrdering Facility: [facility] Address: [address] [place] [address] Performed By: #### A LLBG ####[facility] [id number] [place] [address] [place] O2 THERAPY Ventilator Normal [facility] Comment on above: Order Comment: Speci men Type: ARTERIAL BLOOD SPECIMENOrdering Facility: [facility] Address: [address] [place] [address] Performed By: #### A LLBG ####[facility] [id number] [place] [address] [place] Oxygen (Bld) [Partial pressure] 131 mm Hg High 85-95 [facility] Comment on above: Order Comment: Speci men Type: ARTERIAL BLOOD SPECIMENOrdering Facility: [facility] Address: [address] Performed By: #### A LLBG ####[facility] [id number] [place] [address] [place] Oxygen adjusted to patient's actual temperature (Bld) [Partial pressure] 144 mmHg High 85-95 [facility] Comment on above: Order Comment: Speci men Type: ARTERIAL BLOOD SPECIMENOrdering Facility: [facility] Address: [address] Performed By: #### A LLBG ####[facility] [id number] [place] [address] [place] Oxyhemoglobin (BldA) [Mass fraction] 97 % Normal 95-98 [facility] Comment on above: Order Comment: Speci men Type: ARTERIAL BLOOD SPECIMENOrdering Facility: [facility] Address: [address] [place] [address] Performed By: #### A LLBG ####[facility] [id number] [place] [address] [place] PEEP/CPAP 5 cmH2O Normal [facility] Comment on above: Order Comment: Speci men Type: ARTERIAL BLOOD SPECIMENOrdering Facility: [facility] Address: [address] [place] [address] Performed By: #### A LLBG ####[facility] [id number] [place] [address] [place] pH (Bld) 7.42 [pH] Normal 7.35-7.45 [facility] Comment on above: Order Comment: Speci men Type: ARTERIAL BLOOD SPECIMENOrdering Facility: [facility] Address: [address] [place] [address] Performed By: #### A LLBG ####[facility] [id number] [place] [address] [place] pH adjusted to patient's actual temperature (Bld) 7.39 Normal 7.35-7.45 [facility] Comment on above: Order Comment: Speci men Type: ARTERIAL BLOOD SPECIMENOrdering Facility: [facility] Address: [address] [place] [address] Performed By: #### A LLBG ####[facility] [id number] [place] [address] [place] Potassium [Moles/Vol] 4.1 mmol/L Normal 3.5-5.0 [facility] Comment on above: Order Comment: Speci men Type: ARTERIAL BLOOD SPECIMENOrdering Facility: [facility] Address: [address] [place] [address] Performed By: #### A LLBG ####[facility] [id number] [place] [address] [place] Sodium [Moles/Vol] 141 mmol/L Normal 136-144 [facility] Comment on above: Order Comment: Speci men Type: ARTERIAL BLOOD SPECIMENOrdering Facility: [facility] Address: [address] [place], [place] [address] Performed By: #### A LLBG ####[facility] [id number] [place] [address] [place] Base deficit (BldA) [Moles/Vol] -4 mmol/L Low -2-0 [facility] Comment on above: Order Comment: Speci men Type: ARTERIAL BLOOD SPECIMENOrdering Facility: [facility] Address: [address] [address] Performed By: #### A LLBG ####[facility] [id number] [place] [address] [place] Body temperature 98.6 [degF] Normal [facility] Comment on above: Order Comment: Speci men Type: ARTERIAL BLOOD SPECIMENOrdering Facility: [facility] Address: [address] [address] Performed By: #### A LLBG ####[facility] [id number] [place] [address] [place] Calcium.ionized (Bld) [Mass/Vol] 1.12 mmol/L Normal 1.08-1.30 [facility] Comment on above: Order Comment: Speci men Type: ARTERIAL BLOOD SPECIMENOrdering Facility: [facility] Address: [address] [place] [address] Performed By: #### A LLBG ####[facility] [id number] [place] [address] [place] Calcium.ionized adjusted to pH 7.4 (BldA) [Moles/Vol] 1.14 mmol/L Normal 1.08-1.30 [facility] Comment on above: Order Comment: Speci men Type: ARTERIAL BLOOD SPECIMENOrdering Facility: [facility] Address: [address] Performed By: #### A LLBG ####[facility] [id number] [place] [address] [place] Carboxyhemoglobin (BldA) [Mass fraction] 0.8 % Normal 0.0-2.0 [facility] Comment on above: Order Comment: Speci men Type: ARTERIAL BLOOD SPECIMENOrdering Facility: [facility] Address: [address] [place], [place] [address] Result Comment: Carb oxyhemoglobin Reference Range for Smokers: 2.0-8.0% Performed By: #### A LLBG ####[facility] [id number] [place] [address] [place] CO2 (Bld) [Partial pressure] 27 mm Hg Low 36-46 [facility] Comment on above: Order Comment: Speci men Type: ARTERIAL BLOOD SPECIMENOrdering Facility: [facility] Address: [address] [address] Performed By: #### A LLBG ####[facility] [id number] [place] [address] [place] CO2 [Moles/Vol] 19 mmol/L Low 22-28 [facility] Comment on above: Order Comment: Speci men Type: ARTERIAL BLOOD SPECIMENOrdering Facility: [facility] Address: [address] [address] Performed By: #### A LLBG ####[facility] [id number] [place] [address] [place] Glucose [Mass/Vol] 97 mg/dL Normal 60-105 [facility] Comment on above: Order Comment: Speci men Type: ARTERIAL BLOOD SPECIMENOrdering Facility: [facility] Address: [address] [address] Performed By: #### A LLBG ####[facility] [id number] [place] [address] [place] HCO3 (Bld) [Moles/Vol] 18 mmol/L Low 22-26 [facility] Comment on above: Order Comment: Speci men Type: ARTERIAL BLOOD SPECIMENOrdering Facility: [facility] Address: [address] [address] Performed By: #### A LLBG ####[facility] [id number] [place] [address] [place] Hematocrit (Bld) [Volume fraction] 31.8 % Low 39.0-51.0 [facility] Comment on above: Order Comment: Speci men Type: ARTERIAL BLOOD SPECIMENOrdering Facility: [facility] Address: [address] [place] [address] Performed By: #### A LLBG ####[facility] [id number] [place] [address] [place] Hemoglobin (Bld) [Mass/Vol] 10.3 g/dL Low 13.0-17.0 [facility] Comment on above: Order Comment: Speci men Type: ARTERIAL BLOOD SPECIMENOrdering Facility: [facility] Address: [address] [place] [address] Performed By: #### A LLBG ####[facility] [id number] [place] [address] [place] Lactate [Moles/Vol] 3.8 mmol/L High 0.5-2.2 [facility] Comment on above: Order Comment: Speci men Type: ARTERIAL BLOOD SPECIMENOrdering Facility: [facility] Address: [address] [place] [address] Performed By: #### A LLBG ####[facility] [id number] [place] [address] [place] LITERS 2 Liters/min Normal [facility] Comment on above: Order Comment: Speci men Type: ARTERIAL BLOOD SPECIMENOrdering Facility: [facility] Address: [address] [place], [place] [address] Performed By: #### A LLBG ####[facility] [id number] [place] [address] [place] Methemoglobin (Bld) [Mass fraction] 1.1 % Normal 0.0-1.5 [facility] Comment on above: Order Comment: Speci men Type: ARTERIAL BLOOD SPECIMENOrdering Facility: [facility] Address: [address] [place], [place] [address] Performed By: #### A LLBG ####[facility] [id number] [address] [place] O2 THERAPY NC = Nasal Cannula Normal [facility] Comment on above: Order Comment: Speci men Type: ARTERIAL BLOOD SPECIMENOrdering Facility: [facility] Address: [address] Performed By: #### A LLBG ####[facility] [id number] [address] [place] Oxygen (Bld) [Partial pressure] 144 mm Hg High 85-95 [facility] Comment on above: Order Comment: Speci men Type: ARTERIAL BLOOD SPECIMENOrdering Facility: [facility] Address: [address] Performed By: #### A LLBG ####[facility] [id number] [place] [address] [place] Oxyhemoglobin (BldA) [Mass fraction] 97 % Normal 95-98 [facility] Comment on above: Order Comment: Speci men Type: ARTERIAL BLOOD SPECIMENOrdering Facility: [facility] Address: [address] Performed By: #### A LLBG ####[facility] [id number] [place] [address] [place] pH (Bld) 7.44 [pH] Normal 7.35-7.45 [facility] Comment on above: Order Comment: Speci men Type: ARTERIAL BLOOD SPECIMENOrdering Facility: [facility] Address: [address] Performed By: #### A LLBG ####[facility] [id number] [place] [address] [place] Potassium [Moles/Vol] 3.7 mmol/L Normal 3.5-5.0 [facility] Comment on above: Order Comment: Speci men Type: ARTERIAL BLOOD SPECIMENOrdering Facility: [facility] Address: [address] [place], [place] [address] Performed By: #### A LLBG ####[facility] [id number] [place] [address] [place] Sodium [Moles/Vol] 141 mmol/L Normal 136-144 [facility] Comment on above: Order Comment: Speci men Type: ARTERIAL BLOOD SPECIMENOrdering Facility: [facility] Address: [address] [place] [address] Performed By: #### A LLBG ####[facility] [id number] [place] [address] [place] Base deficit (BldA) [Moles/Vol] -4 mmol/L Low -2-0 [facility] Comment on above: Order Comment: Speci men Type: ARTERIAL BLOOD SPECIMENOrdering Facility: [facility] Address: [address] Performed By: #### A LLBG ####[facility] [id number] [place] [address] [place] Body temperature 98.6 [degF] Normal [facility] Comment on above: Order Comment: Speci men Type: ARTERIAL BLOOD SPECIMENOrdering Facility: [facility] Address: [address] Performed By: #### A LLBG ####[facility] [id number] [place] [address] [place] Calcium.ionized (Bld) [Mass/Vol] 1.06 mmol/L Low 1.08-1.30 [facility] Comment on above: Order Comment: Speci men Type: ARTERIAL BLOOD SPECIMENOrdering Facility: [facility] Address: [address] Performed By: #### A LLBG ####[facility] [id number] [place] [address] [place] Calcium.ionized adjusted to pH 7.4 (BldA) [Moles/Vol] 1.10 mmol/L Normal 1.08-1.30 [facility] Comment on above: Order Comment: Speci men Type: ARTERIAL BLOOD SPECIMENOrdering Facility: [facility] Address: [address] [place], [place] [address] Performed By: #### A LLBG ####[facility] [id number] [place] [address] [place] Carboxyhemoglobin (BldA) [Mass fraction] 1.2 % Normal 0.0-2.0 [facility] Comment on above: Order Comment: Speci men Type: ARTERIAL BLOOD SPECIMENOrdering Facility: [facility] Address: [address] [place], [place] [address] Result Comment: Carb oxyhemoglobin Reference Range for Smokers: 2.0-8.0% Performed By: #### A LLBG ####[facility] [id number] [place] [address] [place] CO2 (Bld) [Partial pressure] 25 mm Hg Low 36-46 [facility] Comment on above: Order Comment: Speci men Type: ARTERIAL BLOOD SPECIMENOrdering Facility: [facility] Address: [address] [place], [place] [address] Performed By: #### A LLBG ####[facility] [id number] [place] [address] [place] CO2 [Moles/Vol] 19 mmol/L Low 22-28 [facility] Comment on above: Order Comment: Speci men Type: ARTERIAL BLOOD SPECIMENOrdering Facility: [facility] Address: [address] [place], [place] [address] Performed By: #### A LLBG ####[facility] [id number] [place] [address] [place] Glucose [Mass/Vol] 96 mg/dL Normal 60-105 [facility] Comment on above: Order Comment: Speci men Type: ARTERIAL BLOOD SPECIMENOrdering Facility: [facility] Address: [address] [place] [address] Performed By: #### A LLBG ####[facility] [id number] [place] [address] [place] HCO3 (Bld) [Moles/Vol] 18 mmol/L Low 22-26 [facility] Comment on above: Order Comment: Speci men Type: ARTERIAL BLOOD SPECIMENOrdering Facility: [facility] Address: [address] [place] [address] Performed By: #### A LLBG ####[facility] [id number] [place] [address] [place] Hematocrit (Bld) [Volume fraction] 35.0 % Low 39.0-51.0 [facility] Comment on above: Order Comment: Speci men Type: ARTERIAL BLOOD SPECIMENOrdering Facility: [facility] Address: [address] [place], [place] [address] Performed By: #### A LLBG ####[facility] [id number] [place] [address] [place] Hemoglobin (Bld) [Mass/Vol] 11.4 g/dL Low 13.0-17.0 [facility] Comment on above: Order Comment: Speci men Type: ARTERIAL BLOOD SPECIMENOrdering Facility: [facility] Address: [address] [place], [place] [address] Performed By: #### A LLBG ####[facility] [id number] [place] [address] [place] Lactate [Moles/Vol] 6.2 mmol/L High 0.5-2.2 [facility] Comment on above: Order Comment: Speci men Type: ARTERIAL BLOOD SPECIMENOrdering Facility: [facility] Address: [address] Performed By: #### A LLBG ####[facility] [id number] [place] [address] [place] LITERS 4 Liters/min Normal [facility] Comment on above: Order Comment: Speci men Type: ARTERIAL BLOOD SPECIMENOrdering Facility: [facility] Address: [address] Performed By: #### A LLBG ####[facility] [id number] [place] [address] [place] Methemoglobin (Bld) [Mass fraction] 1.4 % Normal 0.0-1.5 [facility] Comment on above: Order Comment: Speci men Type: ARTERIAL BLOOD SPECIMENOrdering Facility: [facility] Address: [address] Performed By: #### A LLBG ####[facility] [id number] [place] [address] [place] O2 THERAPY NC = Nasal Cannula Normal [facility] Comment on above: Order Comment: Speci men Type: ARTERIAL BLOOD SPECIMENOrdering Facility: [facility] Address: [address] Performed By: #### A LLBG ####[facility] [id number] [place] [address] [place] Oxygen (Bld) [Partial pressure] 76 mm Hg Low 85-95 [facility] Comment on above: Order Comment: Speci men Type: ARTERIAL BLOOD SPECIMENOrdering Facility: [facility] Address: [address] Performed By: #### A LLBG ####[facility] [id number] [place] [address] [place] Oxyhemoglobin (BldA) [Mass fraction] 94 % Low 95-98 [facility] Comment on above: Order Comment: Speci men Type: ARTERIAL BLOOD SPECIMENOrdering Facility: [facility] Address: [address] [place], [place] [address] Performed By: #### A LLBG ####[facility] [id number] [place] [address] [place] pH (Bld) 7.47 [pH] High 7.35-7.45 [facility] Comment on above: Order Comment: Speci men Type: ARTERIAL BLOOD SPECIMENOrdering Facility: [facility] Address: [address] [place] [address] Performed By: #### A LLBG ####[facility] [id number] [place] [address] [place] Potassium [Moles/Vol] 3.9 mmol/L Normal 3.5-5.0 [facility] Comment on above: Order Comment: Speci men Type: ARTERIAL BLOOD SPECIMENOrdering Facility: [facility] Address: [address] [place], [place] [address] Performed By: #### A LLBG ####[facility] [id number] [place] [address] [place] Sodium [Moles/Vol] 142 mmol/L Normal 136-144 [facility] Comment on above: Order Comment: Speci men Type: ARTERIAL BLOOD SPECIMENOrdering Facility: [facility] Address: [address] [place], [place] [address] Performed By: #### A LLBG ####[facility] [id number] [place] [address] [place] BRIEF OP NOTon 09-19-2022 BRIEF OP NOT Normal [facility] Bacteria Bld Culton 09-20-19 23 Bacteria identified Cx Nom (Bld) CULTURE, BLOOD: No growth 5 days Normal [facility] Comment on above: Performed By: #### 6 00-7 ####[facility] [id number] [address] OF [facility] Bacteria Ur Culton Bacteria identified Cx Nom (U) Abnormal [facility] Comment on above: Performed By: #### 6 30-4 ####[facility] [id number] [address] OF [facility] CBC panel Auto (Bld)on 09-19 Erythrocyte distribution width (RBC) [Ratio] 14.5 % Normal 11.5-15.0 [facility] Comment on above: Order Comment: Speci men Type: BLOOD SPECIMENOrdering Facility: [facility] Address: [address] [place] [address] Performed By: #### 5 8410-2 ####[facility] [id number] [address] STATES OF [facility] Hematocrit (Bld) [Volume fraction] 36.1 % Low 39.0-51.0 [facility] Comment on above: Order Comment: Speci men Type: BLOOD SPECIMENOrdering Facility: [facility] Address: [address] [place] [address] Performed By: #### 5 8410-2 ####[facility] [id number] [address] [place] Hemoglobin (Bld) [Mass/Vol] 11.3 g/dL Low 13.0-17.0 [facility] Comment on above: Order Comment: Speci men Type: BLOOD SPECIMENOrdering Facility: [facility] Address: [address] [place] [address] Performed By: #### 5 8410-2 ####[facility] [id number] [place] [address] [place] MCH (RBC) [Entitic mass] 27.8 pg Normal 26.0-34.0 [facility] Comment on above: Order Comment: Speci men Type: BLOOD SPECIMENOrdering Facility: [facility] Address: [address] Performed By: #### 5 8410-2 ####[facility] [id number] [place] [address] [place] MCHC (RBC) [Mass/Vol] 31.3 g/dL Normal 30.5-36.0 [facility] Comment on above: Order Comment: Speci men Type: BLOOD SPECIMENOrdering Facility: [facility] Address: [address] Performed By: #### 5 8410-2 ####[facility] [id number] [place] [address] [place] MCV (RBC) [Entitic vol] 88.9 fL Normal 80.0-100.0 [facility] Comment on above: Order Comment: Speci men Type: BLOOD SPECIMENOrdering Facility: [facility] Address: [address] [place], [place] [address] Performed By: #### 5 8410-2 ####[facility] [id number] [place] [address] [place] Nucleated RBC (Bld) [#/Vol] 10*3/uL Normal <0.01 [facility] Comment on above: Order Comment: Speci men Type: BLOOD SPECIMENOrdering Facility: [facility] Address: [address] Performed By: #### 5 8410-2 ####[facility] [id number] [place] [address] [place] Platelet mean volume (Bld) [Entitic vol] 10.0 fL Normal 9.0-12.7 [facility] Comment on above: Order Comment: Speci men Type: BLOOD SPECIMENOrdering Facility: [facility] Address: [address] [place], [place] [address] Performed By: #### 5 8410-2 ####[facility] [id number] [place] [address] [place] Platelets (Bld) [#/Vol] 164 10*3/uL Normal 150-400 [facility] Comment on above: Order Comment: Speci men Type: BLOOD SPECIMENOrdering Facility: [facility] Address: [address] [place], [place] [address] Performed By: #### 5 8410-2 ####[facility] [id number] [address] OF [facility] RBC (Bld) [#/Vol] 4.06 10*6/uL Low 4.20-6.00 [facility] Comment on above: Order Comment: Speci men Type: BLOOD SPECIMENOrdering Facility: [facility] Address: [address] [place], [place] [address] Performed By: #### 5 8410-2 ####[facility] [id number] [place] [address] [place] WBC (Bld) [#/Vol] 5.21 10*3/uL Normal 3.70-11.00 [facility] Comment on above: Order Comment: Speci men Type: BLOOD SPECIMENOrdering Facility: [facility] Address: [address] [place], [place] [address] Performed By: #### 5 8410-2 ####[facility] [id number] [place] [address] [place] CK SerPl-cCncon 09-19-2022 CK [Catalytic activity/Vol] 1838 U/L High 51-298 [facility] Comment on above: Order Comment: Speci men Type: BLOOD SPECIMENOrdering Facility: [facility] Address: [address] [place], [place] [address] Performed By: #### 2 4323-8, 277-1, 2156-08, ####[facility] [id number] [place] [id number] [place] CONSULTon 09-19-2022 CONSULT Normal [facility] CONSULT Normal [facility] Comprehensive metabolic 2000 panelon 09-19-2022 Albumin [Mass/Vol] 3.4 g/dL Low 3.9-4.9 [facility] Comment on above: Order Comment: Speci men Type: BLOOD SPECIMENOrdering Facility: [facility] Address: [address] Performed By: #### 2 4323-8, 277-, 2156-08, ####[facility] [id number] [place] [address] [place] ALP [Catalytic activity/Vol] 90 U/L Normal 38-113 [facility] Comment on above: Order Comment: Speci men Type: BLOOD SPECIMENOrdering Facility: [facility] Address: [address] [place], [place] [address] Performed By: #### 2 4323-8, 2776-, 2156-08, ####[facility] [id number] [place] [address] [place] ALT [Catalytic activity/Vol] 11 U/L Normal 10-54 [facility] Comment on above: Order Comment: Speci men Type: BLOOD SPECIMENOrdering Facility: [facility] Address: [address] [place] [id number] Performed By: #### 2 4323-8, 277-1, 2156-08, ####[facility] [id number] [place] [address] [place] Anion gap [Moles/Vol] 21 mmol/L High 9-18 [facility] Comment on above: Order Comment: Speci men Type: BLOOD SPECIMENOrdering Facility: [facility] Address: [address] [place], [place] [address] Performed By: #### 2 4323-8, 2777-1, 2156-08, ####[facility] [id number] [place] [address] [place] AST [Catalytic activity/Vol] 29 U/L Normal 14-40 [facility] Comment on above: Order Comment: Speci men Type: BLOOD SPECIMENOrdering Facility: [facility] Address: [address] [place] [address] Performed By: #### 2 4323-8, 2777-1, 2156-08, ####[facility] [id number] [place] [address] [place] Bilirubin [Mass/Vol] 0.6 mg/dL Normal 0.2-1.3 [facility] Comment on above: Order Comment: Speci men Type: BLOOD SPECIMENOrdering Facility: [facility] Address: [address] [place], [place] [address] Performed By: #### 2 4323-8, 2777-1, 2156-08, ####[facility] [id number] [place] [address] [place] Calcium [Mass/Vol] 8.5 mg/dL Normal 8.5-10.2 [facility] Comment on above: Order Comment: Speci men Type: BLOOD SPECIMENOrdering Facility: [facility] Address: [address] [place], [place] [address] Performed By: #### 2 4323-8, 2777-1, 2156-08, ####[facility] [id number] [place] [address] [place] Chloride [Moles/Vol] 105 mmol/L Normal 97-105 [facility] Comment on above: Order Comment: Speci men Type: BLOOD SPECIMENOrdering Facility: [facility] Address: [address] [place], [place] [address] Performed By: #### 2 4323-8, 2777-, 2156-08, ####[facility] [id number] [place] [address] [place] CO2 [Moles/Vol] 14 mmol/L Low 22-30 [facility] Comment on above: Order Comment: Speci men Type: BLOOD SPECIMENOrdering Facility: [facility] Address: [address] [place] [address] Performed By: #### 2 4323-8, 2777-, 2156-08, ####[facility] [id number] [place] [address] [place] Creatinine [Mass/Vol] 2.45 mg/dL High 0.73-1.22 [facility] Comment on above: Order Comment: Speci men Type: BLOOD SPECIMENOrdering Facility: [facility] Address: [address] [place] [address] Performed By: #### 2 4323-8, 2777, 2156-08, ####[facility] [id number] [place] [address] [place] ESTIMATED GLOMERULAR FILTRATION RATE 28 mL/min/1.73m??? Low >=60 [facility] Comment on above: Order Comment: Speci men Type: BLOOD SPECIMENOrdering Facility: [facility] Address: [address] [place] [address] Result Comment: Ignacia mated Glomerular Filtration Rate [...] GFR. Performed By: #### 2 4323-8, 2777-1, 2156-08, ####[facility] [id number] [address] [address] [place] Glucose [Mass/Vol] 86 mg/dL Normal 74-99 [facility] Comment on above: Order Comment: Speci men Type: BLOOD SPECIMENOrdering Facility: [facility] Address: [address] [place], [place] [phone] Result Comment: The [place] [employer] (ADA) provides guidance for cutoff [...] Standards of Medical Care in Diabetes 2016, [place] [employer]. Diabetes Care. 2016.39(Suppl 1). Performed By: #### 2 4323-8, 277-1, 2156-08, ####[facility] [id number] [address] [address] [place] Potassium [Moles/Vol] 4.7 mmol/L Normal 3.7-5.1 [facility] Comment on above: Order Comment: Speci men Type: BLOOD SPECIMENOrdering Facility: [facility] Address: [address] [place] [address] Performed By: #### 2 4323-8, 2777-1, 2156-08, ####[facility] [id number] [address] [address] [place] Protein [Mass/Vol] 6.7 g/dL Normal 6.3-8.0 [facility] Comment on above: Order Comment: Speci men Type: BLOOD SPECIMENOrdering Facility: [facility] Address: [address] [id number] Performed By: #### 2 4323-8, 2777-1, 2156-08, ####[facility] [id number] [place] [address] [place] Sodium [Moles/Vol] 140 mmol/L Normal 136-144 [facility] Comment on above: Order Comment: Speci men Type: BLOOD SPECIMENOrdering Facility: [facility] Address: [address] [address] Performed By: #### 2 4323-8, 2776-, 2156-08, ####[facility] [id number] [place] [address] [place] Urea nitrogen [Mass/Vol] 28 mg/dL High 9-24 [facility] Comment on above: Order Comment: Speci men Type: BLOOD SPECIMENOrdering Facility: [facility] Address: [address] Performed By: #### 2 4323-8, 2776-, 2156-08, ####[facility] [id number] [place] [address] [place] ECG COMPLETEon 09-19-2022 ECG COMPLETE Normal [facility] Gas and Carbon monoxide pane l (BldV)on 09-19-2022 BASE DEFICIT, VENOUS -12 mmol/L Low -2-0 [facility] Comment on above: Order Comment: Speci men Type: VENOUS BLOOD SPECIMENOrdering Facility: [facility] Address: [address] Performed By: #### 2 4344-4 ####[facility] [id number] [place] [address] [place] Body temperature 98.6 [degF] Normal [facility] Comment on above: Order Comment: Speci men Type: VENOUS BLOOD SPECIMENOrdering Facility: [facility] Address: [address] [place] [address] Performed By: #### 2 4344-4 ####[facility] [id number] [place] [address] [place] Calcium.ionized (Bld) [Mass/Vol] 1.20 mmol/L Normal 1.08-1.30 [facility] Comment on above: Order Comment: Speci men Type: VENOUS BLOOD SPECIMENOrdering Facility: [facility] Address: [address] [place] [address] Performed By: #### 2 4344-4 ####[facility] [id number] [place] [address] [place] Calcium.ionized adjusted to pH 7.4 (BldA) [Moles/Vol] Normal [facility] Comment on above: Order Comment: Speci men Type: VENOUS BLOOD SPECIMENOrdering Facility: [facility] Address: [address] [place] [address] Result Comment: Aletha ured pH is <7.20. Unable to report normalized Calcium. Performed By: #### 2 4344-4 ####[facility] [id number] [place] [address] [place] Carboxyhemoglobin (BldV) [Mass fraction] 1.0 % Normal 0.0-2.0 [facility] Comment on above: Order Comment: Speci men Type: VENOUS BLOOD SPECIMENOrdering Facility: [facility] Address: [address] [place] [address] Result Comment: Carb oxyhemoglobin Reference Range for Smokers: 2.0-8.0% Performed By: #### 2 4344-4 ####[facility] [id number] [place] [address] [place] CO2 (BldV) [Partial pressure] 48 mm[Hg] Normal 42-55 [facility] Comment on above: Order Comment: Speci men Type: VENOUS BLOOD SPECIMENOrdering Facility: [facility] Address: [address] [place] [address] Performed By: #### 2 4344-4 ####[facility] [id number] [place] [address] [place] CO2 [Moles/Vol] 18 mmol/L Low 25-29 [facility] Comment on above: Order Comment: Speci men Type: VENOUS BLOOD SPECIMENOrdering Facility: [facility] Address: [address] [place] [address] Performed By: #### 2 4344-4 ####[facility] [id number] [place] [address] [place] COMMENTS Critical Value: pH, pHTC Urgent Value: LACT Normal [facility] Comment on above: Order Comment: Speci men Type: VENOUS BLOOD SPECIMENOrdering Facility: [facility] Address: [address] [place] [address] Performed By: #### 2 4344-4 ####[facility] [id number] [place] [address] [place] DATE/TIME NOTIFIED [id number] AM Normal [facility] Comment on above: Order Comment: Speci men Type: VENOUS BLOOD SPECIMENOrdering Facility: [facility] Address: [address] Performed By: #### 2 4344-4 ####[facility] [id number] [place] [address] [place] Glucose [Mass/Vol] 108 mg/dL High 60-105 [facility] Comment on above: Order Comment: Speci men Type: VENOUS BLOOD SPECIMENOrdering Facility: [facility] Address: [address] Performed By: #### 2 4344-4 ####[facility] [id number] [place] [address] [place] HCO3 (Bld) [Moles/Vol] 16 mmol/L Low 24-28 [facility] Comment on above: Order Comment: Speci men Type: VENOUS BLOOD SPECIMENOrdering Facility: [facility] Address: [address] [place] [address] Performed By: #### 2 4344-4 ####[facility] [id number] [place] [address] [place] [place] Hematocrit (Bld) [Volume fraction] 36.9 % Low 39.0-51.0 [facility] Comment on above: Order Comment: Speci men Type: VENOUS BLOOD SPECIMENOrdering Facility: [facility] Address: [address] [place] [address] Performed By: #### 2 4344-4 ####[facility] [id number] [address] [place] Hemoglobin (Bld) [Mass/Vol] 12.0 g/dL Low 13.0-17.0 [facility] Comment on above: Order Comment: Speci men Type: VENOUS BLOOD SPECIMENOrdering Facility: [facility] Address: [address] [place] [address] Performed By: #### 2 4344-4 ####[facility] [id number] [place] [address] [place] Lactate [Moles/Vol] 11.2 mmol/L High 0.5-2.2 [facility] Comment on above: Order Comment: Speci men Type: VENOUS BLOOD SPECIMENOrdering Facility: [facility] Address: [address] [place], [place] [address] Performed By: #### 2 4344-4 ####[facility] [id number] [place] [address] [place] Methemoglobin (Bld) [Mass fraction] 0.9 % Normal 0.0-1.5 [facility] Comment on above: Order Comment: Speci men Type: VENOUS BLOOD SPECIMENOrdering Facility: [facility] Address: [address] Performed By: #### 2 4344-4 ####[facility] [id number] [place] [address] [place] NOTIFIED WHOM Rosy Curtis RN G62[place] Normal [facility] Comment on above: Order Comment: Speci men Type: VENOUS BLOOD SPECIMENOrdering Facility: [facility] Address: [address] Performed By: #### 2 4344-4 ####[facility] [id number] [place] [address] [place] O2 THERAPY RA=Room Air Normal [facility] Comment on above: Order Comment: Speci men Type: VENOUS BLOOD SPECIMENOrdering Facility: [facility] Address: [address] [place] [address] Performed By: #### 2 4344-4 ####[facility] [id number] [place] [address] [place] Oxygen (BldV) [Partial pressure] 40 mm[Hg] Normal 35-45 [facility] Comment on above: Order Comment: Speci men Type: VENOUS BLOOD SPECIMENOrdering Facility: [facility] Address: [address] [place] [address] Performed By: #### 2 4344-4 ####[facility] [id number] [place] [address] [place] Oxygen saturation in Venous blood 56 % Low 60-85 [facility] Comment on above: Order Comment: Speci men Type: VENOUS BLOOD SPECIMENOrdering Facility: [facility] Address: [address] Performed By: #### 2 4344-4 ####[facility] [id number] [place] [address] [place] Oxyhemoglobin (BldV) [Mass fraction] 55 % Low 60-85 [facility] Comment on above: Order Comment: Speci men Type: VENOUS BLOOD SPECIMENOrdering Facility: [facility] Address: [address] [place] [address] Performed By: #### 2 4344-4 ####[facility] [id number] [place] [address] [place] pH (BldV) 7.16 [pH] Critically low 7.32-7.42 [facility] Comment on above: Order Comment: Speci men Type: VENOUS BLOOD SPECIMENOrdering Facility: [facility] Address: [address] [place] [address] Performed By: #### 2 4344-4 ####[facility] [id number] [place] [address] [place] Potassium [Moles/Vol] 5.8 mmol/L High 3.5-5.0 [facility] Comment on above: Order Comment: Speci men Type: VENOUS BLOOD SPECIMENOrdering Facility: [facility] Address: [address] [place], [place] [address] Performed By: #### 2 4344-4 ####[facility] [id number] [place] [address] [place] Sodium [Moles/Vol] 141 mmol/L Normal 136-144 [facility] Comment on above: Order Comment: Speci men Type: VENOUS BLOOD SPECIMENOrdering Facility: [facility] Address: [address] [place], [place] [address] Performed By: #### 2 4344-4 ####[facility] [id number] [place] [address] [place] HISTORY PHYSICALon 3 HISTORY PHYSICAL Normal [facility] HISTORY PHYSICAL Normal [facility] IR NEPHROSTOMY TUBE PLACEon 09-19-[address] Normal [facility] Magnesium SerPl-mCncon 09-19 Magnesium [Mass/Vol] 1.4 mg/dL Low 1.7-2.3 [facility] Comment on above: Order Comment: Speci men Type: BLOOD SPECIMENOrdering Facility: [facility] Address: [place] [id number] Performed By: #### 2 4323-8, 2777-1, 2157-6, 08176-6 ####[facility] [id number] [facility] [place] [id number] [facility] NURSING PROGon 09-19-2022 NURSING PROG Normal [facility] PT EDon 09-19-2022 PT ED Normal [facility] PT panel Coag (PPP)on 2022 INR Coag (PPP) [Relative time] 1.3 {INR} Normal 0.9-1.3 [facility] Comment on above: Order Comment: Speci men Type: BLOOD SPECIMENOrdering Facility: [facility] Address: [place] [id number] Result Comment: Kendra min K Antagonist (VKA) Therapeutic Range: INR 2 to 3 (Target INR of 2.5)Note: For patients treated with VKA drugs, such as warfarin, the [place] [employer] 2012 Guideline recommends [...] al. Chest 2012, 141:7S-47SNishelise RA, et al. JACC 2017, 70: 252-289 Performed By: #### 3 4528-0 ####[facility] [id number] [place] [address] [place] PT Coag (PPP) [Time] 13.7 s High 9.7-13.0 [facility] Comment on above: Order Comment: Speci men Type: BLOOD SPECIMENOrdering Facility: [facility] Address: [address] [place] [address] Performed By: #### 3 4528-0 ####[facility] [id number] [place] [address] [place] Phosphate SerPl-mCncon 09-19 Phosphate [Mass/Vol] 5.4 mg/dL High 2.7-4.8 [facility] Comment on above: Order Comment: Speci men Type: BLOOD SPECIMENOrdering Facility: [facility] Address: [address] [place] [address] Performed By: #### 2 4323-8, 2777-1, 2157-6, 03602-9 ####[facility] [id number] [address] [place] SARS-CoV-2 RNA Resp Ql ROSSANA+p robeon 09-19-2022 SARS-CoV-2 (COVID-19) RNA ROSSANA+probe Ql (Resp) COVID 19 RESULT: Not detected The method used is RT-PCR or an equivalent NAAT method. Reference Range(the expected result in uninfected individuals): Not detected Normal [facility] Comment on above: Performed By: #### 9 4500-6 ####[facility] [id number] [address] [place] STAPH AUREUS PCRon S. aureus and MRSA panel ROSSANA+probe (Nose) Abnormal Negative [facility] Comment on above: Order Comment: Speci men Type: SWAB OF INTERNAL NOSEOrdering Facility: [facility] Address: [address] [place] [address] Result Comment: Posi tive for Staphylococcus aureus by PCR.Negative for MRSA by PCR Performed By: #### S APCR ####[facility] [id number] [address] [place] Urinalysis complete panel (U )on 09-19-2022 Bacteria LM.HPF (Urine sed) [#/Area] Moderate Abnormal None Seen [facility] Comment on above: Order Comment: Speci men Type: URINE SPECIMENOrdering Facility: [facility] Address: [address] [place] [address] Performed By: #### 2 4356-8 ####[facility] [id number] [place] [address] [place] Bilirubin Ql (U) Negative Normal Negative [facility] Comment on above: Order Comment: Speci men Type: URINE SPECIMENOrdering Facility: [facility] Address: [address] [place] [address] Performed By: #### 2 4356-8 ####[facility] [id number] [place] [address] [place] Clarity (Unsp spec) Turbid Abnormal Clear [facility] Comment on above: Order Comment: Speci men Type: URINE SPECIMENOrdering Facility: [facility] Address: [address] [place], [place] [address] Performed By: #### 2 4356-8 ####[facility] [id number] [place] [address] [place] Color (U) Yellow Normal Yellow [facility] Comment on above: Order Comment: Speci men Type: URINE SPECIMENOrdering Facility: [facility] Address: [address] [place] [address] Performed By: #### 2 4356-8 ####[facility] [id number] [place] [address] [place] Glucose Test strip (U) [Mass/Vol] Negative Normal Trace, Negative [facility] Comment on above: Order Comment: Speci men Type: URINE SPECIMENOrdering Facility: [facility] Address: [address] [place] [address] Performed By: #### 2 4356-8 ####[facility] [id number] [place] [address] [place] Hemoglobin Ql (U) 3+ Abnormal Negative, Trace [facility] Comment on above: Order Comment: Speci men Type: URINE SPECIMENOrdering Facility: [facility] Address: [address] [place] [address] Performed By: #### 2 4356-8 ####[facility] [id number] [address] [place] Ketones Ql (U) Negative Normal Trace, Negative [facility] Comment on above: Order Comment: Speci men Type: URINE SPECIMENOrdering Facility: [facility] Address: [address] [place], [place] [address] Performed By: #### 2 4356-8 ####[facility] [id number] [place] [address] [place] Leukocyte esterase Test strip Ql (U) 500 Arnulfo/uL Abnormal Negative, 25 Arnulfo/uL [facility] Comment on above: Order Comment: Speci men Type: URINE SPECIMENOrdering Facility: [facility] Address: [address] Performed By: #### 2 4356-8 ####[facility] [id number] [place] [address] [place] Nitrite Ql (U) 2+ Abnormal Negative [facility] Comment on above: Order Comment: Speci men Type: URINE SPECIMENOrdering Facility: [facility] Address: [address] Performed By: #### 2 4356-8 ####[facility] [id number] [place] [address] [place] pH (U) 6.0 [pH] Normal 5.0-8.0 [facility] Comment on above: Order Comment: Speci men Type: URINE SPECIMENOrdering Facility: [facility] Address: [address] [place] [address] Performed By: #### 2 4356-8 ####[facility] [id number] [place] [address] [place] Protein (U) [Mass/Vol] 2+ Abnormal Trace , Negative [facility] Comment on above: Order Comment: Speci men Type: URINE SPECIMENOrdering Facility: [facility] Address: [address] [place] [address] Performed By: #### 2 4356-8 ####[facility] [id number] [place] [address] [place] RBC LM.HPF (Urine sed) [#/Area] /[HPF] Abnormal 0-3 /HPF [facility] Comment on above: Order Comment: Speci men Type: URINE SPECIMENOrdering Facility: [facility] Address: [address] [place] [address] Performed By: #### 2 4356-8 ####[facility] [id number] [place] [address] [place] Specific gravity (U) [Rel density] 1.015 Normal 1.005-1.030 [facility] Comment on above: Order Comment: Speci men Type: URINE SPECIMENOrdering Facility: [facility] Address: [address] [place], [place] [address] Performed By: #### 2 4356-8 ####[facility] [id number] [address] [place] Urobilinogen Ql (U) Negative Normal Negative [facility] Comment on above: Order Comment: Speci men Type: URINE SPECIMENOrdering Facility: [facility] Address: [address] [place] [address] Performed By: #### 2 4356-8 ####[facility] [id number] [place] [address] [place] WBC LM.HPF (Urine sed) [#/Area] /[HPF] Abnormal 0-5 /HPF [facility] Comment on above: Order Comment: Speci men Type: URINE SPECIMENOrdering Facility: [facility] Address: [address] [place] [address] Performed By: #### 2 4356-8 ####[facility] [id number] [place] [address] [place] Urinalysis complete pnl Uron 09-19-2022 Urinalysis complete panel (U) Normal [facility] Comment on above: Order Comment: Speci men Type: URINE SPECIMENOrdering Facility: [facility] Address: [address] [place] [address] Performed By: #### 2 4356-8 ####[facility] [id number] [place] [address] [place] XR ABDOMEN 1V SUPINEon 09-19 XR ABDOMEN 1V SUPINE Normal [facility] XR CHEST 1V FRONTAL PORTon 0 09-19-2022 XR CHEST 1V FRONTAL PORT Normal [facility] XR CHEST 1V FRONTAL PORT Normal [facility] CNOVon 09-01-2022 CNOV Normal [facility] CNPNon 08-17-2022 CNPN Normal [facility] CASE MANAGEMon 08-13-2022 CASE MANAGEM Normal [facility] CNPNon 08-13-2022 CNPN Normal [facility] CASE MANAGEMon 08-12-2022 CASE MANAGEM Normal [facility] CONSULT PROGon 08-12-2022 CONSULT PROG Normal [facility] Basic metabolic 2000 panelon 08-11-2022 Anion gap [Moles/Vol] 10 mmol/L Normal 9-18 [facility] Comment on above: Order Comment: Speci men Type: BLOOD SPECIMENOrdering Facility: [facility] Address: [address] [place], [place] [address] Performed By: #### 2 4321-2 ####[facility] [id number] [place] [address] [place] Calcium [Mass/Vol] 8.7 mg/dL Normal 8.5-10.2 [facility] Comment on above: Order Comment: Speci men Type: BLOOD SPECIMENOrdering Facility: [facility] Address: [address] [place] [address] Performed By: #### 2 4321-2 ####[facility] [id number] [place] [address] [place] Chloride [Moles/Vol] 107 mmol/L High 97-105 [facility] Comment on above: Order Comment: Speci men Type: BLOOD SPECIMENOrdering Facility: [facility] Address: [address] [place] [address] Performed By: #### 2 4321-2 ####[facility] [id number] [place] [address] [place] CO2 [Moles/Vol] 23 mmol/L Normal 22-30 [facility] Comment on above: Order Comment: Speci men Type: BLOOD SPECIMENOrdering Facility: [facility] Address: [address] [place], [place] [address] Performed By: #### 2 4321-2 ####[facility] [id number] [place] [address] [place] Creatinine [Mass/Vol] 0.73 mg/dL Normal 0.73-1.22 [facility] Comment on above: Order Comment: Speci men Type: BLOOD SPECIMENOrdering Facility: [facility] Address: [address] [place] [address] Performed By: #### 2 4321-2 ####[facility] [id number] [address] ESTIMATED GLOMERULAR FILTRATION RATE 100 mL/min/1.73m??? Normal >=60 [facility] Comment on above: Order Comment: Cierra cartwright Type: BLOOD SPECIMENOrdering Facility: [facility] Address: [address] [place] [address] Result Comment: Ignacia mated Glomerular Filtration Rate [...] actual GFR. Performed By: #### 2 4321-2 ####[facility] [id number] [address] OF [facility] Glucose [Mass/Vol] 74 mg/dL Normal 74-99 [facility] Comment on above: Order Comment: Cierra cartwright Type: BLOOD SPECIMENOrdering Facility: [facility] Address: [address] [place] [address] Result Comment: The [place] Diabetes [employer] (ADA) provides guidance for cutoff [...] Standards of Medical Care in Diabetes 2016, [place] [employer]. Diabetes Care. 2016.39(Suppl 1). Performed By: #### 2 4321-2 ####[facility] [id number] [place] [address] [place] Potassium [Moles/Vol] 4.0 mmol/L Normal 3.7-5.1 [facility] Comment on above: Order Comment: Speci men Type: BLOOD SPECIMENOrdering Facility: [facility] Address: [address] [place] [address] Performed By: #### 2 4321-2 ####[facility] [id number] [place] [address] [place] Sodium [Moles/Vol] 140 mmol/L Normal 136-144 [facility] Comment on above: Order Comment: Speci men Type: BLOOD SPECIMENOrdering Facility: [facility] Address: [address] [place] [address] Performed By: #### 2 4321-2 ####[facility] [id number] [place] [address] [place] Urea nitrogen [Mass/Vol] 7 mg/dL Low 9-24 [facility] Comment on above: Order Comment: Speci men Type: BLOOD SPECIMENOrdering Facility: [facility] Address: [address] [place] [address] Performed By: #### 2 4321-2 ####[facility] [id number] [place] [address] [place] CBC panel Auto (Bld)on 08-11 Erythrocyte distribution width (RBC) [Ratio] 13.6 % Normal 11.5-15.0 [facility] Comment on above: Order Comment: Speci men Type: BLOOD SPECIMENOrdering Facility: [facility] Address: [address] [place] [address] Performed By: #### 5 8410-2 ####[facility] [id number] [place] [address] [place] Hematocrit (Bld) [Volume fraction] 28.0 % Low 39.0-51.0 [facility] Comment on above: Order Comment: Speci men Type: BLOOD SPECIMENOrdering Facility: [facility] Address: [address] [place] [address] Performed By: #### 5 8410-2 ####[facility] [id number] [place] [address] [place] Hemoglobin (Bld) [Mass/Vol] 9.1 g/dL Low 13.0-17.0 [facility] Comment on above: Order Comment: Speci men Type: BLOOD SPECIMENOrdering Facility: [facility] Address: [address] [place] [address] Performed By: #### 5 8410-2 ####[facility] [id number] [address] [place] MCH (RBC) [Entitic mass] 28.3 pg Normal 26.0-34.0 [facility] Comment on above: Order Comment: Speci men Type: BLOOD SPECIMENOrdering Facility: [facility] Address: [address] [place] [address] Performed By: #### 5 8410-2 ####[facility] [id number] [place] [address] [place] MCHC (RBC) [Mass/Vol] 32.5 g/dL Normal 30.5-36.0 [facility] Comment on above: Order Comment: Speci men Type: BLOOD SPECIMENOrdering Facility: [facility] Address: [address] Performed By: #### 5 8410-2 ####[facility] [id number] [place] [address] [place] MCV (RBC) [Entitic vol] 87.2 fL Normal 80.0-100.0 [facility] Comment on above: Order Comment: Speci men Type: BLOOD SPECIMENOrdering Facility: [facility] Address: [address] [place] [address] Performed By: #### 5 8410-2 ####[facility] [id number] [place] [address] [place] Nucleated RBC (Bld) [#/Vol] 10*3/uL Normal <0.01 [facility] Comment on above: Order Comment: Speci men Type: BLOOD SPECIMENOrdering Facility: [facility] Address: [address] Performed By: #### 5 8410-2 ####[facility] [id number] [place] [address] [place] Platelet mean volume (Bld) [Entitic vol] 9.5 fL Normal 9.0-12.7 [facility] Comment on above: Order Comment: Speci men Type: BLOOD SPECIMENOrdering Facility: [facility] Address: [address] Performed By: #### 5 8410-2 ####[facility] [id number] [place] [address] [place] Platelets (Bld) [#/Vol] 251 10*3/uL Normal 150-400 [facility] Comment on above: Order Comment: Speci men Type: BLOOD SPECIMENOrdering Facility: [facility] Address: [address] [place] [address] Performed By: #### 5 8410-2 ####[facility] [id number] [place] [address] [place] RBC (Bld) [#/Vol] 3.21 10*6/uL Low 4.20-6.00 [facility] Comment on above: Order Comment: Speci men Type: BLOOD SPECIMENOrdering Facility: [facility] Address: [address] Performed By: #### 5 8410-2 ####[facility] [id number] [place] [address] [place] WBC (Bld) [#/Vol] 4.70 10*3/uL Normal 3.70-11.00 [facility] Comment on above: Order Comment: Speci men Type: BLOOD SPECIMENOrdering Facility: [facility] Address: [address] [place] [address] Performed By: #### 5 8410-2 ####[facility] [id number] [place] [address] [place] Basic metabolic 2000 panelon 08-10-2022 Anion gap [Moles/Vol] 11 mmol/L Normal 9-18 [facility] Comment on above: Order Comment: Speci men Type: BLOOD SPECIMENOrdering Facility: [facility] Address: [address] [place] [address] Performed By: #### 2 4321-2 ####[facility] [id number] [place] [address] [place] Calcium [Mass/Vol] 9.1 mg/dL Normal 8.5-10.2 [facility] Comment on above: Order Comment: Speci men Type: BLOOD SPECIMENOrdering Facility: [facility] Address: [address] [place] [address] Performed By: #### 2 4321-2 ####[facility] [id number] [place] [address] [place] Chloride [Moles/Vol] 102 mmol/L Normal 97-105 [facility] Comment on above: Order Comment: Speci men Type: BLOOD SPECIMENOrdering Facility: [facility] Address: [address] [place], [place] [address] Performed By: #### 2 4321-2 ####[facility] [id number] [place] [address] [place] CO2 [Moles/Vol] 22 mmol/L Normal 22-30 [facility] Comment on above: Order Comment: Speci men Type: BLOOD SPECIMENOrdering Facility: [facility] Address: [address] [place] [address] Performed By: #### 2 4321-2 ####[facility] [id number] [place] [address] [place] Creatinine [Mass/Vol] 0.67 mg/dL Low 0.73-1.22 [facility] Comment on above: Order Comment: Speci men Type: BLOOD SPECIMENOrdering Facility: [facility] Address: [address] [place] [address] Performed By: #### 2 4321-2 ####[facility] [id number] [place] [address] [place] ESTIMATED GLOMERULAR FILTRATION RATE 102 mL/min/1.73m??? Normal >=60 [facility] Comment on above: Order Comment: Speci men Type: BLOOD SPECIMENOrdering Facility: [facility] Address: [address] [place] [address] Result Comment: Ignacia mated Glomerular Filtration Rate [...] actual GFR. Performed By: #### 2 4321-2 ####[facility] [id number] [place] [address] [place] Glucose [Mass/Vol] 128 mg/dL High 74-99 [facility] Comment on above: Order Comment: Speci men Type: BLOOD SPECIMENOrdering Facility: [facility] Address: [address] [place] [address] Result Comment: The [place] Diabetes [employer] (ADA) provides guidance for cutoff [...] Standards of Medical Care in Diabetes 2016, [place] [employer]. Diabetes Care. 2016.39(Suppl 1). Performed By: #### 2 4321-2 ####[facility] [id number] [place] [address] [place] Potassium [Moles/Vol] 3.8 mmol/L Normal 3.7-5.1 [facility] Comment on above: Order Comment: Speci men Type: BLOOD SPECIMENOrdering Facility: [facility] Address: [address] [place] [address] Performed By: #### 2 1-2 ####[facility] [id number] [place] [address] [place] Sodium [Moles/Vol] 135 mmol/L Low 136-144 [facility] Comment on above: Order Comment: Speci men Type: BLOOD SPECIMENOrdering Facility: [facility] Address: [address] [address] Performed By: #### 2 1-2 ####[facility] [id number] [place] [address] [place] Urea nitrogen [Mass/Vol] 9 mg/dL Normal 9-24 [facility] Comment on above: Order Comment: Speci men Type: BLOOD SPECIMENOrdering Facility: [facility] Address: [address] [address] Performed By: #### 2 4321-2 ####[facility] [id number] [place] [address] [place] CASE MGT INIT ASSESon 2022 CASE MGT INIT ASSES Normal [facility] CBC panel Auto (Bld)on 08-10 Erythrocyte distribution width (RBC) [Ratio] 13.2 % Normal 11.5-15.0 [facility] Comment on above: Order Comment: Speci men Type: BLOOD SPECIMENOrdering Facility: [facility] Address: [address] [place] [address] Performed By: #### 5 8410-2 ####[facility] [id number] [place] [address] [place] Hematocrit (Bld) [Volume fraction] 28.5 % Low 39.0-51.0 [facility] Comment on above: Order Comment: Speci men Type: BLOOD SPECIMENOrdering Facility: [facility] Address: [address] [place] [address] Performed By: #### 5 8410-2 ####[facility] [id number] [address] [place] Hemoglobin (Bld) [Mass/Vol] 9.7 g/dL Low 13.0-17.0 [facility] Comment on above: Order Comment: Speci men Type: BLOOD SPECIMENOrdering Facility: [facility] Address: [address] [place] [address] Performed By: #### 5 8410-2 ####[facility] [id number] [place] [address] [place] MCH (RBC) [Entitic mass] 28.9 pg Normal 26.0-34.0 [facility] Comment on above: Order Comment: Speci men Type: BLOOD SPECIMENOrdering Facility: [facility] Address: [address] [place] [address] Performed By: #### 5 8410-2 ####[facility] [id number] [place] [address] [place] MCHC (RBC) [Mass/Vol] 34.0 g/dL Normal 30.5-36.0 [facility] Comment on above: Order Comment: Speci men Type: BLOOD SPECIMENOrdering Facility: [facility] Address: [address] [place], [place] [address] Performed By: #### 5 8410-2 ####[facility] [id number] [place] [address] [place] MCV (RBC) [Entitic vol] 84.8 fL Normal 80.0-100.0 [facility] Comment on above: Order Comment: Speci men Type: BLOOD SPECIMENOrdering Facility: [facility] Address: [address] [place], [place] [address] Performed By: #### 5 8410-2 ####[facility] [id number] [place] [address] [place] Nucleated RBC (Bld) [#/Vol] 10*3/uL Normal <0.01 [facility] Comment on above: Order Comment: Speci men Type: BLOOD SPECIMENOrdering Facility: [facility] Address: [address] [place], [place] [address] Performed By: #### 5 8410-2 ####[facility] [id number] [place] [address] [place] Platelet mean volume (Bld) [Entitic vol] 9.3 fL Normal 9.0-12.7 [facility] Comment on above: Order Comment: Speci men Type: BLOOD SPECIMENOrdering Facility: [facility] Address: [address] [place], [place] [address] Performed By: #### 5 8410-2 ####[facility] [id number] [place] [address] [place] Platelets (Bld) [#/Vol] 234 10*3/uL Normal 150-400 [facility] Comment on above: Order Comment: Speci men Type: BLOOD SPECIMENOrdering Facility: [facility] Address: [address] [place] [address] Performed By: #### 5 8410-2 ####[facility] [id number] [place] [address] [place] RBC (Bld) [#/Vol] 3.36 10*6/uL Low 4.20-6.00 [facility] Comment on above: Order Comment: Speci men Type: BLOOD SPECIMENOrdering Facility: [facility] Address: [address] [place] [address] Performed By: #### 5 8410-2 ####[facility] [id number] [place] [address] [place] WBC (Bld) [#/Vol] 5.31 10*3/uL Normal 3.70-11.00 [facility] Comment on above: Order Comment: Speci men Type: BLOOD SPECIMENOrdering Facility: [facility] Address: [address] [place] [address] Performed By: #### 5 8410-2 ####[facility] [id number] [place] [address] [place] CONSULT PROGon 08-10-2022 CONSULT PROG Normal [facility] NURSING PROGon 08-10-2022 NURSING PROG Normal [facility] ANES POSTPROC EVALon 023 ANES POSTPROC EVAL Normal [facility] ANES PRE-OPon 08-09-2022 ANES PRE-OP Normal [facility] BRIEF OP NOTon 08-09-2022 BRIEF OP NOT Normal [facility] Bacteria Ur Culton 3 Bacteria identified Cx Nom (U) Abnormal [facility] Comment on above: Performed By: #### 6 30-4 ####[facility] [id number] [address] [id number] [address] [place] Basic metabolic 2000 panelon 08-09-2022 Anion gap [Moles/Vol] 10 mmol/L Normal 9-18 [facility] Comment on above: Order Comment: Speci men Type: BLOOD SPECIMENOrdering Facility: [facility] Address: [address] [place] [address] Performed By: #### 2 4321-2 ####[facility] [id number] [place] [address] [place] Calcium [Mass/Vol] 8.7 mg/dL Normal 8.5-10.2 [facility] Comment on above: Order Comment: Speci men Type: BLOOD SPECIMENOrdering Facility: [facility] Address: [address] [place] [address] Performed By: #### 2 4321-2 ####[facility] [id number] [place] [address] [place] Chloride [Moles/Vol] 108 mmol/L High 97-105 [facility] Comment on above: Order Comment: Speci men Type: BLOOD SPECIMENOrdering Facility: [facility] Address: [address] [place] [address] Performed By: #### 2 4321-2 ####[facility] [id number] [place] [address] [place] CO2 [Moles/Vol] 23 mmol/L Normal 22-30 [facility] Comment on above: Order Comment: Speci men Type: BLOOD SPECIMENOrdering Facility: [facility] Address: [address] [place], [place] [address] Performed By: #### 2 4321-2 ####[facility] [id number] [place] [address] [place] Creatinine [Mass/Vol] 0.72 mg/dL Low 0.73-1.22 [facility] Comment on above: Order Comment: Speci men Type: BLOOD SPECIMENOrdering Facility: [facility] Address: [address] [address] Performed By: #### 2 4321-2 ####[facility] [id number] [address] ESTIMATED GLOMERULAR FILTRATION RATE 100 mL/min/1.73m??? Normal >=60 [facility] Comment on above: Order Comment: Cierra cartwright Type: BLOOD SPECIMENOrdering Facility: [facility] Address: [address] [address] Result Comment: Ignacia mated Glomerular Filtration Rate [...] actual GFR. Performed By: #### 2 4321-2 ####[facility] [id number] [address] OF [facility] Glucose [Mass/Vol] 74 mg/dL Normal 74-99 [facility] Comment on above: Order Comment: Cierra cartwright Type: BLOOD SPECIMENOrdering Facility: [facility] Address: [address] [place] [address] Result Comment: The [place] [employer] (ADA) provides guidance for cutoff [...] Standards of Medical Care in Diabetes 2016, [place] [employer]. Diabetes Care. 2016.39(Suppl 1). Performed By: #### 2 4321-2 ####[facility] [id number] [place] [address] [place] Potassium [Moles/Vol] 3.8 mmol/L Normal 3.7-5.1 [facility] Comment on above: Order Comment: Speci men Type: BLOOD SPECIMENOrdering Facility: [facility] Address: [address] [place] [address] Performed By: #### 2 4321-2 ####[facility] [id number] [place] [address] [place] Sodium [Moles/Vol] 141 mmol/L Normal 136-144 [facility] Comment on above: Order Comment: Speci men Type: BLOOD SPECIMENOrdering Facility: [facility] Address: [address] [place] [address] Performed By: #### 2 4321-2 ####[facility] [id number] [place] [address] [place] Urea nitrogen [Mass/Vol] 8 mg/dL Low 9-24 [facility] Comment on above: Order Comment: Speci men Type: BLOOD SPECIMENOrdering Facility: [facility] Address: [address] [place] [address] Performed By: #### 2 4321-2 ####[facility] [id number] [place] [address] [place] CALCULI ANALYSISon 3 Calculus analysis [Interp] Normal [facility] Comment on above: Order Comment: Speci men Type: CALCULUS SPECIMENOrdering Facility: [facility] Address: [address] [place] [address] Result Comment: This test was developed and its performance characteristics determined by [facility]'s [facility] [place] ([facility] It has not been cleared or approved by the FDA. [facility] is regulated under CLIA as qualified to perform high-complexity testing. This test is used for clinical purposes. It should not be regarded as investigational or for research. Performed By: #### C SA ####[facility] [id number] [address] [place] CALCULUS COLOR BEIGE Normal [facility] Comment on above: Order Comment: Speci men Type: CALCULUS SPECIMENOrdering Facility: [facility] Address: [address] [address] Performed By: #### C SA ####[facility] [id number] [address] [place] CALCULUS COMPOSITION 1 90% Calcium Phosphate Normal [facility] Comment on above: Order Comment: Speci men Type: CALCULUS SPECIMENOrdering Facility: [facility] Address: [address] [place] [address] Performed By: #### C SA ####[facility] [id number] [address] [place] CALCULUS COMPOSITION 2 10% Minor Components Normal [facility] Comment on above: Order Comment: Speci men Type: CALCULUS SPECIMENOrdering Facility: [facility] Address: [address] [place] [address] Performed By: #### C SA ####[facility] [id number] [address] [place] CALCULUS SIZE AND WT Multiple pieces. 1.3581 GRAMS Normal [facility] Comment on above: Order Comment: Speci men Type: CALCULUS SPECIMENOrdering Facility: [facility] Address: [address] [place] [address] Performed By: #### C SA ####[facility] [id number] [address] [place] CALCULUS TYPE Calculus, CALCULI/CALCULUS Normal [facility] Comment on above: Order Comment: Speci men Type: CALCULUS SPECIMENOrdering Facility: [facility] Address: [address] Performed By: #### C SA ####[facility] [id number] [address] [place] CBC panel Auto (Bld)on 08-09 Erythrocyte distribution width (RBC) [Ratio] 13.5 % Normal 11.5-15.0 [facility] Comment on above: Order Comment: Speci men Type: BLOOD SPECIMENOrdering Facility: [facility] Address: [address] Performed By: #### 5 8410-2 ####[facility] [id number] [address] [place] Hematocrit (Bld) [Volume fraction] 31.1 % Low 39.0-51.0 [facility] Comment on above: Order Comment: Speci men Type: BLOOD SPECIMENOrdering Facility: [facility] Address: [address] Performed By: #### 5 8410-2 ####[facility] [id number] [address] [place] Hemoglobin (Bld) [Mass/Vol] 9.7 g/dL Low 13.0-17.0 [facility] Comment on above: Order Comment: Speci men Type: BLOOD SPECIMENOrdering Facility: [facility] Address: [address] [place] [address] Performed By: #### 5 8410-2 ####[facility] [id number] [place] [address] [place] MCH (RBC) [Entitic mass] 27.9 pg Normal 26.0-34.0 [facility] Comment on above: Order Comment: Speci men Type: BLOOD SPECIMENOrdering Facility: [facility] Address: [address] Performed By: #### 5 8410-2 ####[facility] [id number] [place] [address] [place] MCHC (RBC) [Mass/Vol] 31.2 g/dL Normal 30.5-36.0 [facility] Comment on above: Order Comment: Speci men Type: BLOOD SPECIMENOrdering Facility: [facility] Address: [address] [place] [address] Performed By: #### 5 8410-2 ####[facility] [id number] [place] [address] [place] MCV (RBC) [Entitic vol] 89.4 fL Normal 80.0-100.0 [facility] Comment on above: Order Comment: Speci men Type: BLOOD SPECIMENOrdering Facility: [facility] Address: [address] [place] [address] Performed By: #### 5 8410-2 ####[facility] [id number] [place] [address] [place] Nucleated RBC (Bld) [#/Vol] 10*3/uL Normal <0.01 [facility] Comment on above: Order Comment: Speci men Type: BLOOD SPECIMENOrdering Facility: [facility] Address: [address] [place], [place] [address] Performed By: #### 5 8410-2 ####[facility] [id number] [place] [address] [place] Platelet mean volume (Bld) [Entitic vol] 9.7 fL Normal 9.0-12.7 [facility] Comment on above: Order Comment: Speci men Type: BLOOD SPECIMENOrdering Facility: [facility] Address: [address] [place], [place] [address] Performed By: #### 5 8410-2 ####[facility] [id number] [place] [address] [place] Platelets (Bld) [#/Vol] 258 10*3/uL Normal 150-400 [facility] Comment on above: Order Comment: Speci men Type: BLOOD SPECIMENOrdering Facility: [facility] Address: [address] [place], [place] [address] Performed By: #### 5 8410-2 ####[facility] [id number] [place] [address] [place] RBC (Bld) [#/Vol] 3.48 10*6/uL Low 4.20-6.00 [facility] Comment on above: Order Comment: Speci men Type: BLOOD SPECIMENOrdering Facility: [facility] Address: [address] [place], [place] [address] Performed By: #### 5 8410-2 ####[facility] [id number] [place] [address] [place] WBC (Bld) [#/Vol] 3.10 10*3/uL Low 3.70-11.00 [facility] Comment on above: Order Comment: Speci men Type: BLOOD SPECIMENOrdering Facility: [facility] Address: [address] [place], [place] [address] Performed By: #### 5 8410-2 ####[facility] [id number] [place] [address] [place] CNDSon 08-09-2022 CNDS Normal [facility] CONSULTon 08-09-2022 CONSULT Normal [facility] NURSING PROGon 08-09-2022 NURSING PROG Normal [facility] NURSING PROG Normal [facility] NURSING PROG Normal [facility] OPERATIVE NOon 08-09-2022 OPERATIVE NO Normal [facility] PT panel Coag (PPP)on 2022 INR Coag (PPP) [Relative time] 1.0 {INR} Normal 0.9-1.3 [facility] Comment on above: Order Comment: Speci men Type: BLOOD SPECIMENOrdering Facility: [facility] Address: [address] [address] Result Comment: Kendra min K Antagonist (VKA) Therapeutic Range: INR 2 to 3 (Target INR of 2.5)Note: For patients treated with VKA drugs, such as warfarin, the [place] [employer] 2012 Guideline recommends [...] 2.5 to 3.5 (target INR of 3).Farzaneh GARY, et al. Chest 2012, 141:7S-47SNishelise RA, et al. [facility] 2017, 70: 252-289 Performed By: #### 3 4528-0, 90055-2 ####[facility] [id number] [place] [address] [place] PT Coag (PPP) [Time] 10.3 s Normal 9.7-13.0 [facility] Comment on above: Order Comment: Speci men Type: BLOOD SPECIMENOrdering Facility: [facility] Address: [address] [place] [address] Performed By: #### 3 4528-0, 46373-3 ####[facility] [id number] [address] [place] TYPE + SCREENon 08-09-2022 ABO O Normal [facility] Comment on above: Order Comment: Speci men Type: BLOOD SPECIMENOrdering Facility: [facility] Address: [address] [place] [address] Performed By: #### T SCR ####[facility]ANKCLIA [id number] [place] [address] [place] HISTORICAL AB SCR STATUS Negative Normal [facility] Comment on above: Order Comment: Speci men Type: BLOOD SPECIMENOrdering Facility: [facility] Address: [address] [place] [address] Performed By: #### T SCR ####[facility]ANKCLIA [id number] [address] Rh Nom (Bld) Positive Normal [facility] Comment on above: Order Comment: Speci men Type: BLOOD SPECIMENOrdering Facility: [facility] Address: [address] [place] [address] Performed By: #### T SCR ####[facility] BLOOD [facility]ANKIA [id number] [address] TYPE AND SCREEN EXPIRATION 08/12/2022 23:59 Normal [facility] Comment on above: Order Comment: Speci men Type: BLOOD SPECIMENOrdering Facility: [facility] Address: [address] [place] [address] Performed By: #### T SCR ####[facility]LO[facility]ANKIA [id number] [address] [place] aPTT PPPon 08-09-2022 aPTT Coag (PPP) [Time] 28.2 s Normal 23.0-32.4 [facility] Comment on above: Order Comment: Speci men Type: BLOOD SPECIMENOrdering Facility: [facility] Address: [address] [place], [place] [address] Performed By: #### 3 4528-0, 90411-2 ####[facility] [id number] [address] [place] Basic metabolic 2000 panelon 08-08-2022 Anion gap [Moles/Vol] 9 mmol/L Normal 9-18 [facility] Comment on above: Order Comment: Speci men Type: BLOOD SPECIMENOrdering Facility: [facility] Address: [address] [place], [place] [address] Performed By: #### 2 4321-2 ####[facility] [id number] [place] [address] [place] Calcium [Mass/Vol] 7.3 mg/dL Low 8.5-10.2 [facility] Comment on above: Order Comment: Speci men Type: BLOOD SPECIMENOrdering Facility: [facility] Address: [address] Performed By: #### 2 4321-2 ####[facility] [id number] [place] [address] [place] Chloride [Moles/Vol] 115 mmol/L High 97-105 [facility] Comment on above: Order Comment: Speci men Type: BLOOD SPECIMENOrdering Facility: [facility] Address: [address] [place], [place] [address] Performed By: #### 2 4321-2 ####[facility] [id number] [place] [address] [place] CO2 [Moles/Vol] 19 mmol/L Low 22-30 [facility] Comment on above: Order Comment: Speci men Type: BLOOD SPECIMENOrdering Facility: [facility] Address: [address] [place], [place] [address] Performed By: #### 2 4321-2 ####[facility] [id number] [place] [address] [place] Creatinine [Mass/Vol] 0.54 mg/dL Low 0.73-1.22 [facility] Comment on above: Order Comment: Speci men Type: BLOOD SPECIMENOrdering Facility: [facility] Address: [address] Performed By: #### 2 4321-2 ####[facility] [id number] [place] [address] [place] ESTIMATED GLOMERULAR FILTRATION RATE 109 mL/min/1.73m??? Normal >=60 [facility] Comment on above: Order Comment: Cierra cartwright Type: BLOOD SPECIMENOrdering Facility: [facility] Address: [address] [place] [address] Result Comment: Ignacia mated Glomerular Filtration Rate [...] actual GFR. Performed By: #### 2 4321-2 ####[facility] [id number] [place] [address] [place] Glucose [Mass/Vol] 74 mg/dL Normal 74-99 [facility] Comment on above: Order Comment: Cierra cartwright Type: BLOOD SPECIMENOrdering Facility: [facility] Address: [address] [place] [address] Result Comment: The [place] [employer] (ADA) provides guidance for cutoff [...] Standards of Medical Care in Diabetes 2016, [place] [employer]. Diabetes Care. 2016.39(Suppl 1). Performed By: #### 2 4321-2 ####[facility] [id number] [place] [address] [place] Potassium [Moles/Vol] 3.3 mmol/L Low 3.7-5.1 [facility] Comment on above: Order Comment: Speci men Type: BLOOD SPECIMENOrdering Facility: [facility] Address: [address] Performed By: #### 2 4321-2 ####[facility] [id number] [place] [address] [place] Sodium [Moles/Vol] 143 mmol/L Normal 136-144 [facility] Comment on above: Order Comment: Speci men Type: BLOOD SPECIMENOrdering Facility: [facility] Address: [address] [address] Performed By: #### 2 4321-2 ####[facility] [id number] [place] [address] [place] Urea nitrogen [Mass/Vol] 7 mg/dL Low 9-24 [facility] Comment on above: Order Comment: Speci men Type: BLOOD SPECIMENOrdering Facility: [facility] Address: [address] Performed By: #### 2 4321-2 ####[facility] [id number] [place] [address] [place] CBC panel Auto (Bld)on 08-08 Erythrocyte distribution width (RBC) [Ratio] 13.5 % Normal 11.5-15.0 [facility] Comment on above: Order Comment: Speci men Type: BLOOD SPECIMENOrdering Facility: [facility] Address: [address] Performed By: #### 5 8410-2 ####[facility] [id number] [place] [address] [place] Hematocrit (Bld) [Volume fraction] 31.7 % Low 39.0-51.0 [facility] Comment on above: Order Comment: Speci men Type: BLOOD SPECIMENOrdering Facility: [facility] Address: [address] Performed By: #### 5 8410-2 ####[facility] [id number] [place] [address] [place] Hemoglobin (Bld) [Mass/Vol] 9.9 g/dL Low 13.0-17.0 [facility] Comment on above: Order Comment: Speci men Type: BLOOD SPECIMENOrdering Facility: [facility] Address: [address] [place] [address] Performed By: #### 5 8410-2 ####[facility] [id number] [place] [address] [place] MCH (RBC) [Entitic mass] 27.9 pg Normal 26.0-34.0 [facility] Comment on above: Order Comment: Speci men Type: BLOOD SPECIMENOrdering Facility: [facility] Address: [address] [place] [address] Performed By: #### 5 8410-2 ####[facility] [id number] [address] STATES OF [facility] MCHC (RBC) [Mass/Vol] 31.2 g/dL Normal 30.5-36.0 [facility] Comment on above: Order Comment: Speci men Type: BLOOD SPECIMENOrdering Facility: [facility] Address: [address] [place] [address] Performed By: #### 5 8410-2 ####[facility] [id number] [address] [place] MCV (RBC) [Entitic vol] 89.3 fL Normal 80.0-100.0 C [facility] Comment on above: Order Comment: Speci men Type: BLOOD SPECIMENOrdering Facility: [facility] Address: [address] [place] [address] Performed By: #### 5 8410-2 ####[facility] [id number] [place] [address] [place] Nucleated RBC (Bld) [#/Vol] 10*3/uL Normal <0.01 [facility] Comment on above: Order Comment: Speci men Type: BLOOD SPECIMENOrdering Facility: [facility] Address: [address] [place], [place] [address] Performed By: #### 5 8410-2 ####[facility] [id number] [place] [address] [place] Platelet mean volume (Bld) [Entitic vol] 9.5 fL Normal 9.0-12.7 [facility] Comment on above: Order Comment: Speci men Type: BLOOD SPECIMENOrdering Facility: [facility] Address: [address] [place], [place] [address] Performed By: #### 5 8410-2 ####[facility] [id number] [place] [address] [place] Platelets (Bld) [#/Vol] 268 10*3/uL Normal 150-400 [facility] Comment on above: Order Comment: Speci men Type: BLOOD SPECIMENOrdering Facility: [facility] Address: [address] [place], [place] [address] Performed By: #### 5 8410-2 ####[facility] [id number] [place] [address] [place] RBC (Bld) [#/Vol] 3.55 10*6/uL Low 4.20-6.00 [facility] Comment on above: Order Comment: Speci men Type: BLOOD SPECIMENOrdering Facility: [facility] Address: [address] [place], [place] [address] Performed By: #### 5 8410-2 ####[facility] [id number] [place] [address] [place] WBC (Bld) [#/Vol] 2.90 10*3/uL Low 3.70-11.00 [facility] Comment on above: Order Comment: Speci men Type: BLOOD SPECIMENOrdering Facility: [facility] Address: [address] [place] [address] Performed By: #### 5 8410-2 ####[facility] [id number] [place] [address] [place] NURSING PROGon 08-08-2022 NURSING PROG Normal [facility] CBC W Auto Differential pane l (Bld)on 08-07-2022 Basophils (Bld) [#/Vol] 0.07 10*3/uL Normal <0.11 [facility] Comment on above: Order Comment: Speci men Type: BLOOD SPECIMENOrdering Facility: [facility] Address: [address] [place] [address] Performed By: #### 5 7021-8 ####[facility] [id number] [place] [address] [place] Basophils/100 WBC (Bld) 1.4 % Normal C [facility] Comment on above: Order Comment: Speci men Type: BLOOD SPECIMENOrdering Facility: [facility] Address: [address] [place] [address] Performed By: #### 5 7021-8 ####[facility] [id number] [place] [address] [place] Differential cell count method Nom (Bld) Auto Normal [facility] Comment on above: Order Comment: Speci men Type: BLOOD SPECIMENOrdering Facility: [facility] Address: [address] [place], [place] [address] Performed By: #### 5 7021-8 ####[facility] [id number] [place] [address] [place] Eosinophils (Bld) [#/Vol] 0.15 10*3/uL Normal <0.46 [facility] Comment on above: Order Comment: Speci men Type: BLOOD SPECIMENOrdering Facility: [facility] Address: [address] [place], [place] [address] Performed By: #### 5 7021-8 ####[facility] [id number] [place] [address] [place] Eosinophils/100 WBC (Bld) 3.1 % Normal [facility] Comment on above: Order Comment: Speci men Type: BLOOD SPECIMENOrdering Facility: [facility] Address: [address] [place], [place] [address] Performed By: #### 5 7021-8 ####[facility] [id number] [place] [address] [place] Erythrocyte distribution width (RBC) [Ratio] 13.9 % Normal 11.5-15.0 [facility] Comment on above: Order Comment: Speci men Type: BLOOD SPECIMENOrdering Facility: [facility] Address: [address] [place], [place] [address] Performed By: #### 5 7021-8 ####[facility] [id number] [place] [address] [place] Hematocrit (Bld) [Volume fraction] 34.2 % Low 39.0-51.0 [facility] Comment on above: Order Comment: Speci men Type: BLOOD SPECIMENOrdering Facility: [facility] Address: [address] [place], [place] [address] Performed By: #### 5 7021-8 ####[facility] [id number] [place] [address] [place] Hemoglobin (Bld) [Mass/Vol] 10.6 g/dL Low 13.0-17.0 [facility] Comment on above: Order Comment: Speci men Type: BLOOD SPECIMENOrdering Facility: [facility] Address: [address] [place], [place] [address] Performed By: #### 5 7021-8 ####[facility] [id number] [place] Immature granulocytes (Bld) [#/Vol] 0.03 10*3/uL Normal <0.10 [facility] Comment on above: Order Comment: Speci men Type: BLOOD SPECIMENOrdering Facility: [facility] Address: [address] [place] [address] Performed By: #### 5 7021-8 ####[facility] [id number] [address] Immature granulocytes/100 WBC (Bld) 0.6 % Normal [facility] Comment on above: Order Comment: Speci men Type: BLOOD SPECIMENOrdering Facility: [facility] Address: [address] [place] [address] Performed By: #### 5 7021-8 ####[facility] [id number] [place] [address] [place] Lymphocytes (Bld) [#/Vol] 1.73 10*3/uL Normal 1.00-4.00 [facility] Comment on above: Order Comment: Speci men Type: BLOOD SPECIMENOrdering Facility: [facility] Address: [address] [place], [place] [address] Performed By: #### 5 7021-8 ####[facility] [id number] [address] [place] Lymphocytes/100 WBC (Bld) 35.4 % Normal [facility] Comment on above: Order Comment: Speci men Type: BLOOD SPECIMENOrdering Facility: [facility] Address: [address] [place], [place] [address] Performed By: #### 5 7021-8 ####[facility] [id number] [place] [address] [place] MCH (RBC) [Entitic mass] 28.2 pg Normal 26.0-34.0 [facility] Comment on above: Order Comment: Speci men Type: BLOOD SPECIMENOrdering Facility: [facility] Address: [address] Performed By: #### 5 7021-8 ####[facility] [id number] [address] [place] MCHC (RBC) [Mass/Vol] 31.0 g/dL Normal 30.5-36.0 [facility] Comment on above: Order Comment: Speci men Type: BLOOD SPECIMENOrdering Facility: [facility] Address: [address] Performed By: #### 5 7021-8 ####[facility] [id number] [place] [address] [place] MCV (RBC) [Entitic vol] 91.0 fL Normal 80.0-100.0 C [facility] Comment on above: Order Comment: Speci men Type: BLOOD SPECIMENOrdering Facility: [facility] Address: [address] Performed By: #### 5 7021-8 ####[facility] [id number] [place] [address] [place] Monocytes (Bld) [#/Vol] 0.57 10*3/uL Normal <0.87 [facility] Comment on above: Order Comment: Speci men Type: BLOOD SPECIMENOrdering Facility: [facility] Address: [address] [place] [address] Performed By: #### 5 7021-8 ####[facility] [id number] [address] [place] Monocytes/100 WBC (Bld) 11.7 % Normal C [facility] Comment on above: Order Comment: Speci men Type: BLOOD SPECIMENOrdering Facility: [facility] Address: [address] Performed By: #### 5 7021-8 ####[facility] [id number] [place] [address] [place] Neutrophils (Bld) [#/Vol] 2.34 10*3/uL Normal 1.45-7.50 [facility] Comment on above: Order Comment: Speci men Type: BLOOD SPECIMENOrdering Facility: [facility] Address: [address] [place] [address] Performed By: #### 5 7021-8 ####[facility] [id number] [place] [address] [place] Neutrophils/100 WBC (Bld) 47.8 % Normal [facility] Comment on above: Order Comment: Speci men Type: BLOOD SPECIMENOrdering Facility: [facility] Address: [address] [place] [address] Performed By: #### 5 7021-8 ####[facility] [id number] [place] [address] [place] Nucleated RBC (Bld) [#/Vol] 10*3/uL Normal <0.01 [facility] Comment on above: Order Comment: Speci men Type: BLOOD SPECIMENOrdering Facility: [facility] Address: [address] [place], [place] [address] Performed By: #### 5 7021-8 ####[facility] [id number] [place] [address] [place] Nucleated RBC/100 WBC (Bld) [Ratio] 0.0 /100 WBC Normal [facility] Comment on above: Order Comment: Speci men Type: BLOOD SPECIMENOrdering Facility: [facility] Address: [address] [place], [place] [address] Performed By: #### 5 7021-8 ####[facility] [id number] [place] [address] [place] Platelet mean volume (Bld) [Entitic vol] 9.1 fL Normal 9.0-12.7 [facility] Comment on above: Order Comment: Speci men Type: BLOOD SPECIMENOrdering Facility: [facility] Address: [address] [place], [place] [address] Performed By: #### 5 7021-8 ####[facility] [id number] [place] [address] [place] Platelets (Bld) [#/Vol] 280 10*3/uL Normal 150-400 [facility] Comment on above: Order Comment: Speci men Type: BLOOD SPECIMENOrdering Facility: [facility] Address: [address] Performed By: #### 5 7021-8 ####[facility] [id number] [place] [address] [place] RBC (Bld) [#/Vol] 3.76 10*6/uL Low 4.20-6.00 [facility] Comment on above: Order Comment: Speci men Type: BLOOD SPECIMENOrdering Facility: [facility] Address: [address] Performed By: #### 5 7021-8 ####[facility] [id number] [place] [address] [place] WBC (Bld) [#/Vol] 4.89 10*3/uL Normal 3.70-11.00 [facility] Comment on above: Order Comment: Speci men Type: BLOOD SPECIMENOrdering Facility: [facility] Address: [address] Performed By: #### 5 7021-8 ####[facility] [id number] [place] [address] [place] CONSULTon 08-07-2022 CONSULT Normal [facility] Comprehensive metabolic 2000 panelon 08-07-2022 Albumin [Mass/Vol] 3.2 g/dL Low 3.9-4.9 [facility] Comment on above: Order Comment: Speci men Type: BLOOD SPECIMENOrdering Facility: [facility] Address: [address] Performed By: #### 2 4323-8 ####[facility] [id number] [place] [address] [place] ALP [Catalytic activity/Vol] 94 U/L Normal 38-113 [facility] Comment on above: Order Comment: Speci men Type: BLOOD SPECIMENOrdering Facility: [facility] Address: [address] Performed By: #### 2 4323-8 ####[facility] [id number] [place] [address] [place] ALT [Catalytic activity/Vol] 12 U/L Normal 10-54 [facility] Comment on above: Order Comment: Speci men Type: BLOOD SPECIMENOrdering Facility: [facility] Address: [address] Performed By: #### 2 4323-8 ####[facility] [id number] [place] [address] [place] Anion gap [Moles/Vol] 10 mmol/L Normal 9-18 [facility] Comment on above: Order Comment: Speci men Type: BLOOD SPECIMENOrdering Facility: [facility] Address: [address] [place] [address] Performed By: #### 2 4323-8 ####[facility] [id number] [place] [address] [place] AST [Catalytic activity/Vol] 15 U/L Normal 14-40 [facility] Comment on above: Order Comment: Speci men Type: BLOOD SPECIMENOrdering Facility: [facility] Address: [address] Performed By: #### 2 4323-8 ####[facility] [id number] [place] [address] [place] Bilirubin [Mass/Vol] 0.2 mg/dL Normal 0.2-1.3 [facility] Comment on above: Order Comment: Speci men Type: BLOOD SPECIMENOrdering Facility: [facility] Address: [address] [place] [address] Performed By: #### 2 4323-8 ####[facility] [id number] [place] [address] [place] Calcium [Mass/Vol] 9.1 mg/dL Normal 8.5-10.2 [facility] Comment on above: Order Comment: Speci men Type: BLOOD SPECIMENOrdering Facility: [facility] Address: [address] [place] [address] Performed By: #### 2 4323-8 ####[facility] [id number] [place] [address] [place] Chloride [Moles/Vol] 106 mmol/L High 97-105 [facility] Comment on above: Order Comment: Speci men Type: BLOOD SPECIMENOrdering Facility: [facility] Address: [address] [place] [address] Performed By: #### 2 4323-8 ####[facility] [id number] [place] [address] [place] CO2 [Moles/Vol] 24 mmol/L Normal 22-30 [facility] Comment on above: Order Comment: Speci men Type: BLOOD SPECIMENOrdering Facility: [facility] Address: [address] [place], [place] [address] Performed By: #### 2 4323-8 ####[facility] [id number] [place] [address] [place] Creatinine [Mass/Vol] 0.81 mg/dL Normal 0.73-1.22 [facility] Comment on above: Order Comment: Guadalupecarter gabbie Type: BLOOD SPECIMENOrdering Facility: [facility] Address: [address] [place] [address] Performed By: #### 2 4323-8 ####[facility] [id number] [place] [address] [place] ESTIMATED GLOMERULAR FILTRATION RATE 97 mL/min/1.73m??? Normal >=60 [facility] Comment on above: Order Comment: Cierra men Type: BLOOD SPECIMENOrdering Facility: [facility] Address: [address] [place] [address] Result Comment: Ignacia mated Glomerular Filtration Rate [...] actual GFR. Performed By: #### 2 4323-8 ####[facility] [id number] [place] [address] [place] Glucose [Mass/Vol] 100 mg/dL High 74-99 [facility] Comment on above: Order Comment: Cierra cartwright Type: BLOOD SPECIMENOrdering Facility: [facility] Address: [address] [place] [address] Result Comment: The [place] [employer] (ADA) provides guidance for cutoff [...] Standards of Medical Care in Diabetes 2016, [place] [employer]. Diabetes Care. 2016.39(Suppl 1). Performed By: #### 2 4323-8 ####[facility] [id number] [place] [address] [place] Potassium [Moles/Vol] 3.7 mmol/L Normal 3.7-5.1 [facility] Comment on above: Order Comment: Speci men Type: BLOOD SPECIMENOrdering Facility: [facility] Address: [address] [place] [address] Performed By: #### 2 4323-8 ####[facility] [id number] [place] [address] [place] Protein [Mass/Vol] 7.0 g/dL Normal 6.3-8.0 [facility] Comment on above: Order Comment: Speci men Type: BLOOD SPECIMENOrdering Facility: [facility] Address: [address] [place] [address] Performed By: #### 2 4323-8 ####[facility] [id number] [place] [address] [place] Sodium [Moles/Vol] 140 mmol/L Normal 136-144 [facility] Comment on above: Order Comment: Speci men Type: BLOOD SPECIMENOrdering Facility: [facility] Address: [address] [place] [address] Performed By: #### 2 4323-8 ####[facility] [id number] [place] [address] [place] Urea nitrogen [Mass/Vol] 12 mg/dL Normal 9-24 [facility] Comment on above: Order Comment: Speci men Type: BLOOD SPECIMENOrdering Facility: [facility] Address: [address] [place], [place] [address] Performed By: #### 2 4323-8 ####[facility] [id number] [place] [address] [place] ED PROV NOTEon 08-07-2022 ED PROV NOTE Normal [facility] HISTORY PHYSICALon HISTORY PHYSICAL Normal [facility] PT panel Coag (PPP)on 2022 INR Coag (PPP) [Relative time] 0.9 {INR} Normal 0.9-1.3 [facility] Comment on above: Order Comment: Speci men Type: BLOOD SPECIMENOrdering Facility: [facility] Address: [address] [place] [id number] Result Comment: Kendra min K Antagonist (VKA) Therapeutic Range: INR 2 to 3 (Target INR of 2.5)Note: For patients treated with VKA drugs, such as warfarin, the [place] [employer] 2012 Guideline recommends [...] al. Chest 2012, 141:7S-47SNishimura RA, et al. [facility] 2017, 70: 252-289 Performed By: #### 3 4528-0 ####[facility] [id number] [place] [id number] [place] PT Coag (PPP) [Time] 9.8 s Normal 9.7-13.0 [facility] Comment on above: Order Comment: Speci men Type: BLOOD SPECIMENOrdering Facility: [facility] Address: [place] [address] Performed By: #### 3 4528-0 ####[facility] [id number] [place] [id number] [place] TYPE + SCREENon 08-07-2022 ABO O Normal [facility] Comment on above: Order Comment: Speci men Type: BLOOD SPECIMENOrdering Facility: [facility] Address: [address] [place] [address] Performed By: #### T SCR ####[facility]CL[facility] [id number] [address] HISTORICAL AB SCR STATUS Negative Normal [facility] Comment on above: Order Comment: Speci men Type: BLOOD SPECIMENOrdering Facility: [facility] Address: [address] [place] [address] Performed By: #### T SCR ####[facility] B[facility]ANK[facility] [id number] [address] [place] Rh Nom (Bld) Positive Normal [facility] Comment on above: Order Comment: Speci men Type: BLOOD SPECIMENOrdering Facility: [facility] Address: [address] [place] [address] Performed By: #### T SCR ####[facility] B[facility]ANKCLIA [id number] [address] [place] TYPE AND SCREEN EXPIRATION 08/09/2022 23:59 Normal [facility] Comment on above: Order Comment: Speci men Type: BLOOD SPECIMENOrdering Facility: [facility] Address: [address] [place] [address] Performed By: #### T SCR ####[facility] BLO[facility]ANKCLIA [id number] [address] [place] Urinalysis complete panel (U )on 08-07-2022 Bacteria LM.HPF (Urine sed) [#/Area] Rare Abnormal None Seen [facility] Comment on above: Order Comment: Speci men Type: URINE SPECIMENOrdering Facility: [facility] Address: [address] [place] [address] Performed By: #### 2 4356-8 ####[facility] [id number] [place] [address] [place] Bilirubin Ql (U) Negative Normal Negative [facility] Comment on above: Order Comment: Speci men Type: URINE SPECIMENOrdering Facility: [facility] Address: [address] [place] [address] Performed By: #### 2 4356-8 ####[facility] [id number] [place] [address] [place] Clarity (Unsp spec) Cloudy Abnormal Clear [facility] Comment on above: Order Comment: Speci men Type: URINE SPECIMENOrdering Facility: [facility] Address: [address] [place] [address] Performed By: #### 2 4356-8 ####[facility] [id number] [place] [address] [place] [facility] Color (U) Light Yellow Normal Yellow [facility] Comment on above: Order Comment: Speci men Type: URINE SPECIMENOrdering Facility: [facility] Address: [address] Performed By: #### 2 4356-8 ####[facility] [id number] [place] [address] [place] Epithelial cells LM.HPF (Urine sed) [#/Area] Few Normal [facility] Comment on above: Order Comment: Speci men Type: URINE SPECIMENOrdering Facility: [facility] Address: [address] Performed By: #### 2 4356-8 ####[facility] [id number] [place] [address] [place] Glucose Test strip (U) [Mass/Vol] Negative Normal Trace, Negative [facility] Comment on above: Order Comment: Speci men Type: URINE SPECIMENOrdering Facility: [facility] Address: [address] Performed By: #### 2 4356-8 ####[facility] [id number] [place] [address] [place] Hemoglobin Ql (U) 3+ Abnormal Negative, Trace [facility] Comment on above: Order Comment: Speci men Type: URINE SPECIMENOrdering Facility: [facility] Address: [address] [place] [address] Performed By: #### 2 4356-8 ####[facility] [id number] [place] [address] [place] Ketones Ql (U) Negative Normal Trace, Negative [facility] Comment on above: Order Comment: Speci men Type: URINE SPECIMENOrdering Facility: [facility] Address: [address] [place] [address] Performed By: #### 2 4356-8 ####[facility] [id number] [place] [address] [place] Leukocyte esterase Test strip Ql (U) 75 Arnulfo/uL Abnormal Negative, 25 Arnulfo/uL [facility] Comment on above: Order Comment: Speci men Type: URINE SPECIMENOrdering Facility: [facility] Address: [address] [place] [address] Performed By: #### 2 4356-8 ####[facility] [id number] [place] [address] [place] Nitrite Ql (U) Negative Normal Negative [facility] Comment on above: Order Comment: Speci men Type: URINE SPECIMENOrdering Facility: [facility] Address: [address] [place] [address] Performed By: #### 2 4356-8 ####[facility] [id number] [place] [address] [place] pH (U) 7.0 [pH] Normal 5.0-8.0 [facility] Comment on above: Order Comment: Speci men Type: URINE SPECIMENOrdering Facility: [facility] Address: [address] [place] [address] Performed By: #### 2 4356-8 ####[facility] [id number] [address] Protein (U) [Mass/Vol] 1+ Abnormal Trace , Negative [facility] Comment on above: Order Comment: Speci men Type: URINE SPECIMENOrdering Facility: [facility] Address: [address] [place] [address] Performed By: #### 2 4356-8 ####[facility] [id number] [place] [address] [place] RBC LM.HPF (Urine sed) [#/Area] /[HPF] Abnormal 0-3 /HPF [facility] Comment on above: Order Comment: Speci men Type: URINE SPECIMENOrdering Facility: [facility] Address: [address] [place] [address] Performed By: #### 2 4356-8 ####[facility] [id number] [place] [address] [place] Specific gravity (U) [Rel density] 1.015 Normal 1.005-1.030 [facility] Comment on above: Order Comment: Speci men Type: URINE SPECIMENOrdering Facility: [facility] Address: [address] [place], [place] [address] Performed By: #### 2 4356-8 ####[facility] [id number] [address] [place] Urobilinogen Ql (U) Negative Normal Negative [facility] Comment on above: Order Comment: Speci men Type: URINE SPECIMENOrdering Facility: [facility] Address: [address] [place] [address] Performed By: #### 2 4356-8 ####[facility] [id number] [address] WBC LM.HPF (Urine sed) [#/Area] 6-10 /HPF Abnormal 0-5 /HPF [facility] Comment on above: Order Comment: Speci men Type: URINE SPECIMENOrdering Facility: [facility] Address: [address] [place] [address] Performed By: #### 2 4356-8 ####[facility] [id number] [place] [id number] [facility] ED NOTEon 08-06-2022 ED NOTE HNO ID: [id number] Author: Marielena Moss RN Service: ? Author Type: Registered Nurse Type: ED Notes Filed: 08/06/2022 9:59 PM Note Text: Bed: E1208 Expected date: 08/06/22 Expected time: 9:54 PM Means of arrival: Comments: EMS Normal [facility] BILIRUBIN TOTAL BLDon 2022 Bilirubin [Mass/Vol] 0.2 mg/dL 0.2 - 1 [facility] CBC W Auto Differential pane l (Bld)on 08-02-2022 Hematocrit (Bld) [Volume fraction] 34.1 % Abnormal 42 - 54 % [facility] Hemoglobin (Bld) [Mass/Vol] 10.7 g/dL Abnormal 14 - 18 g/dL [facility] Platelets (Bld) [#/Vol] 379 10*3/uL 150 - 450 K/uL [facility] WBC (Bld) [#/Vol] 4.9 10*3/uL 4.0 - 11.0 K/uL [facility] CREATININEon 08-02-2022 Creatinine [Mass/Vol] 0.92 mg/dL Normal 0.70-1.30 The [facility] Comment on above: Performed By: #### R SPLUS #### [facility] [address] [place] [address] Dr. Cuba Weber EGFR-AF URUGUAYAN >60 Normal >=60 [facility] Comment on above: Performed By: #### R SPLUS #### [facility] [address] [place] [address] Dr. Cuba Weber EGFR-NON AF URUGUAYAN >60 Normal >=60 [facility] Comment on above: Performed By: #### R SPLUS #### [facility] [address] [place], [place] [address] Dr. Cuba Weber Comprehensive metabolic 2000 panelon 08-02-2022 ALP [Catalytic activity/Vol] 73 U/L 46 - 116 [facility] ALT [Catalytic activity/Vol] 19 U/L 16 - 63 [facility] AST [Catalytic activity/Vol] 21 U/L 15 - 37 [facility] Creatinine [Mass/Vol] 0.92 mg/dL 0.7 - 1.3 MG/DL [facility] HEMOGRAM AND PLATELon 2022 Hematocrit (Bld) [Volume fraction] 34.1 % Critically low 42.0-54.0 [facility] Comment on above: Performed By: #### H H ####[facility] [address] [place] [address]Dr. Cuba Weber Hemoglobin (Bld) [Mass/Vol] 10.7 g/dL Critically low 14.0-18.0 [facility] Comment on above: Performed By: #### H H ####[facility] [address] [place] [id number]. Cuba Weber MCH (RBC) [Entitic mass] 28.3 pg Normal 25.9-34.0 [facility] Comment on above: Performed By: #### H H ####[facility] [address] [place] [address]Dr. Cuba Weber MCHC (RBC) [Mass/Vol] 31.4 g/dL Normal 29.9-35.2 [facility] Comment on above: Performed By: #### H H ####[facility] [address] [place] [address]Dr. Cuba Weber MCV (RBC) [Entitic vol] 90.2 fL Normal 80.0-94.0 [facility] Comment on above: Performed By: #### H H ####[facility] [address] [place] [id number]. Cuba Weber PLT 379 103/ul Normal 150-450 The [facility] Comment on above: Performed By: #### H H ####[facility] [address] [place], [place] [address]UqDr. Cuba Weber RBC 3.78 106/ul Critically low 4.70-6.10 [facility] Comment on above: Performed By: #### H H ####[facility] [address] [place], [place] [address]UyDr. Cuba Weber WBC 4.9 103/ul Normal 4.0-11.0 [facility] Comment on above: Performed By: #### H H ####[facility] [address] [place], [place] [address]WfGlory Weber LIVER PROFILEon 08-02-2022 Albumin [Mass/Vol] 2.6 g/dL Critically low 3.4-5.0 Th e [facility] Comment on above: Performed By: #### R SPLUS #### [facility] [address] [place] [address] [address] Cuba Weber Albumin/Globulin [Mass ratio] 0.6 {ratio} Normal [facility] Comment on above: Performed By: #### R SPLUS #### [facility] [address] [place] [address] [address] Cuba Weber ALP [Catalytic activity/Vol] 73 U/L Normal 46-116 [facility] Comment on above: Performed By: #### R SPLUS #### [facility] [address] [place] [address] [address] Cuba Weber ALT [Catalytic activity/Vol] 19 U/L Normal 16-63 The [facility] Comment on above: Performed By: #### R SPLUS #### [facility] [address] [place] [address] [address] Cuba Weber AST [Catalytic activity/Vol] 21 U/L Normal 15-37 The [facility] Comment on above: Performed By: #### R SPLUS #### [facility] [address] [place] [address] [address] Cuba Weber BILI, CONJUGATED 0.1 mg/dL Normal 0.0-0.2 [facility] Comment on above: Performed By: #### R SPLUS #### [facility] [address] [place] [address] [address] Cuba Weber Bilirubin [Mass/Vol] 0.2 mg/dL Normal 0.2-1.0 [facility] Comment on above: Performed By: #### R SPLUS #### [facility] [address] [place] [address] [address] Cuba Weber Globulin (S) [Mass/Vol] 4.6 g/dL Normal [facility] Comment on above: Performed By: #### R SPLUS #### [facility] [address] [place] [address] Dr. Cuba Weber Protein [Mass/Vol] 7.2 g/dL Normal 6.4-8.2 [facility] Comment on above: Performed By: #### R SPLUS #### [facility] [address] [place] [address] Dr. Cuba Weber STOOL CULTUREon 07-24-2022 Campylobacter Culture Final report Normal [facility] Comment on above: Performed By: #### L ACT #### [facility] [address] [place] [address] Dr. Cuba Weber E coli Shiga Toxin EIA Negative Normal Negative [facility] [place] Comment on above: Performed By: #### L ACT #### [facility] [address] [place] [address] Dr. Cuba Weber Result 1 Comment Normal [facility] Comment on above: Result Comment: No S almonella or Shigella recovered. Performed By: #### L ACT #### [facility] [address] [place] [address] Dr. Cuba Weber Result Comment: No C ampylobacter species isolated. Salmonella/Shigella Screen Final report Normal [facility] Comment on above: Performed By: #### L ACT #### [facility] [address] [place] [address] Dr. Cuba Weber CULTURE BLOODon 07-22-2022 Microscopic examination of blood, [...] F Trimethoprim/Sulfame thoxazole <=20 S F Normal [facility] Comment on above: Performed By: #### C BC #### [facility] [address] [place] [address] Dr. Cuba Weber CULTURE URINEon 07-22-2022 CULTURE [...] F Trimethoprim/Sulfame thoxazole >=320 R F Normal [facility] Comment on above: Performed By: #### C BC #### [facility] [address] [place] [address] Dr. Cuba Weber CBC AUTO DIFFon 07-21-2022 BASO # 0.1 103/ul Normal 0.0-0.1 [facility] Comment on above: Performed By: #### C BC #### [facility] [address] [place] [address] Dr. Cuba Weber Basophils/100 WBC (Bld) 0.3 % Normal 0.2-2.0 [facility] Comment on above: Performed By: #### C BC #### [facility] [address] [place] [address] [address] Cuba Weber EO # 0.3 103/ul Normal 0.0-0.7 The [facility] Comment on above: Performed By: #### C BC #### [facility] [address] [place] [address] Dr. Cuba Weber Eosinophils/100 WBC (Bld) 1.4 % Normal 0.9-7.0 [facility] Comment on above: Performed By: #### C BC #### [facility] [address] [place] [address] Dr. Cuba Weber Erythrocyte distribution width (RBC) [Ratio] 14.9 % Normal 11.0-15.0 [facility] Comment on above: Performed By: #### C BC #### [facility] [address] [place] [address] Dr. Cuba Weber Hematocrit (Bld) [Volume fraction] 30.0 % Critically low 42.0-54.0 [facility] Comment on above: Performed By: #### C BC #### [facility] [address] [place] [address] Dr. Cuba Weber Hemoglobin (Bld) [Mass/Vol] 10.1 g/dL Critically low 14.0-18.0 [facility] Comment on above: Performed By: #### C BC #### [facility] [address] [place] [address] Dr. Cuba Weber IG # 2.09 10e3/ul Critically high 0.00-0.03 [facility] Comment on above: Performed By: #### C BC #### [facility] [address] [place] [address] Dr. Cuba Weber IG % 11.5 % Critically high 0.0-0.5 [facility] Comment on above: Performed By: #### C BC #### [facility] [address] [place] [address] Dr. Cuba Weber LYMPH # 0.4 103/ul Critically low 1.2-3.8 [facility] Comment on above: Performed By: #### C BC #### [facility] [address] [place] [address] [address] Cuba Weber Lymphocytes/100 WBC (Bld) 2.1 % Critically low 20.5-60.0 [facility] Comment on above: Performed By: #### C BC #### [facility] [address] [place] [address] [address] Cuba Weber MANUAL DIFF REQ NO Normal [facility] Comment on above: Performed By: #### C BC #### [facility] [address] [place] [address] Dr. Cuba Weber MCH (RBC) [Entitic mass] 28.5 pg Normal 25.9-34.0 [facility] Comment on above: Performed By: #### C BC #### [facility] [address] [place] [address] Dr. Cuba Weber MCHC (RBC) [Mass/Vol] 33.7 g/dL Normal 29.9-35.2 [facility] Comment on above: Performed By: #### C BC #### [facility] [address] [place] [address] Dr. Cuba Weber MCV (RBC) [Entitic vol] 84.5 fL Normal 80.0-94.0 [facility] Comment on above: Performed By: #### C BC #### [facility] [address] [place] [address] Dr. Cuba Weber MONO # 0.5 103/ul Normal 0.3-0.8 [facility] Comment on above: Performed By: #### C BC #### [facility] [address] [place] [address] Dr. Cuba Weber Monocytes/100 WBC (Bld) 2.9 % Normal 1.7-12.0 [facility] Comment on above: Performed By: #### C BC #### [facility] [address] [place] [address] Dr. Cuba Weber NEUT # 14.9 103/ul Critically high 1.4-6.5 [facility] Comment on above: Performed By: #### C BC #### [facility] [address] [place] [place] [address] [address] Cuba Weber Neutrophils/100 WBC (Bld) 81.8 % Critically high 43.0-75.0 [facility] Comment on above: Performed By: #### C BC #### [facility] [address] [place] [place] [address] [address] Cuba Weber Platelet mean volume (Bld) [Entitic vol] 11.8 fL Normal 9.5-13.5 [facility] Comment on above: Performed By: #### C BC #### [facility] [address] [place] [address] [address] Cuba Weber PLT 74 103/ul Critically low 150-450 [facility] Comment on above: Performed By: #### C BC #### [facility] [address] [place] [address] Dr. Cuba Weber RBC 3.55 106/ul Critically low 4.70-6.10 [facility] Comment on above: Performed By: #### C BC #### [facility] [address] [place] [address] [address] Cuba Weber WBC 18.2 103/ul Critically high 4.0-11.0 [facility] Comment on above: Performed By: #### C BC #### [facility] [address] [place] [address] Dr. Cuba Weber MAGNESIUMon 07-21-2022 Magnesium [Mass/Vol] 2.0 mg/dL Normal 1.8-2.4 [facility] Comment on above: Performed By: #### R SPLUS #### [facility] [address] [place] [address] Dr. Cuba Weber PROF 14(COMP METB)on 023 Albumin [Mass/Vol] 2.1 g/dL Critically low 3.4-5.0 [facility] [place] Comment on above: Performed By: #### R SPLUS #### [facility] [address] [place] [address] Dr. Cuba Weber Albumin/Globulin [Mass ratio] 0.6 {ratio} Normal [facility] Comment on above: Performed By: #### R SPLUS #### [facility] [address] [place] [address] [address] Cuba Weber ALP [Catalytic activity/Vol] 67 U/L Normal 46-116 [facility] Comment on above: Performed By: #### R SPLUS #### [facility] [address] [place] [address] [address] Cuba Weber ALT [Catalytic activity/Vol] 35 U/L Normal 16-63 [facility] Comment on above: Performed By: #### R SPLUS #### [facility] [address] [place] [address] [address] Cuba Weber Anion gap [Moles/Vol] 16.8 mmol/L Normal [facility] [place] Comment on above: Performed By: #### R SPLUS #### [facility] [address] [place] [address] [address] Cuba Weber AST [Catalytic activity/Vol] 50 U/L Critically high 15-37 [facility] Comment on above: Performed By: #### R SPLUS #### [facility] [address] [place] [address] [address] Cuba Weber Bilirubin [Mass/Vol] 1.0 mg/dL Normal 0.2-1.0 [facility] Comment on above: Performed By: #### R SPLUS #### [facility] [address] [place] [address] [address] Cuba Weber Calcium [Mass/Vol] 8.2 mg/dL Critically low 8.5-10.1 [facility] [place] Comment on above: Performed By: #### R SPLUS #### [facility] [address] [place] [address] [address] Cuba Weber Chloride [Moles/Vol] 102 mmol/L Normal 98-107 [facility] Comment on above: Performed By: #### R SPLUS #### [facility] [address] [place] [address] [address] Cuba Weber CO2 [Moles/Vol] 18.4 mmol/L Critically low 21.0-32.0 [facility] Comment on above: Performed By: #### R SPLUS #### [facility] [address] [place] [address] [address] Cuba Weber Creatinine [Mass/Vol] 1.53 mg/dL Critically high 0.70-1.30 [facility] Comment on above: Performed By: #### R SPLUS #### [facility] [address] [place] [address] [address] Cuba Weber EGFR-AF URUGUAYAN 55 mL/min/1.73m2 Critically low >=60 [facility] Comment on above: Performed By: #### R SPLUS #### [facility] [address] [place] [address] [address] Cuba Weber EGFR-NON AF URUGUAYAN 46 mL/min/1.73m2 Critically low >=60 [facility] Comment on above: Performed By: #### R SPLUS #### [facility] [address] [place] [address] [address] Cuba Weber Globulin (S) [Mass/Vol] 3.7 g/dL Normal [facility] Comment on above: Performed By: #### R SPLUS #### [facility] [address] [place] [address] [address] Cuba Weber Glucose [Mass/Vol] 107 mg/dL Critically high 74-106 [facility] Comment on above: Performed By: #### R SPLUS #### [facility] [address] [place] [address] [address] Cuba Weber Potassium [Moles/Vol] 4.2 mmol/L Normal 3.5-5.1 [facility] Comment on above: Performed By: #### R SPLUS #### [facility] [address] [place] [address] [address] Cuba Weber Protein [Mass/Vol] 5.8 g/dL Critically low 6.4-8.2 [facility] [place] Comment on above: Performed By: #### R SPLUS #### [facility] [address] [place] [address] [address] Cuba Weber Sodium [Moles/Vol] 133 mmol/L Critically low 136-145 [facility] Comment on above: Performed By: #### R SPLUS #### [facility] [address] [place] [address] [address] Cuba Weber Urea nitrogen [Mass/Vol] 27.0 mg/dL Critically high 7.0-18.0 The [facility] Comment on above: Performed By: #### R SPLUS #### [facility] [address] [place] [address] Dr. Cuba Weber Urea nitrogen/Creatinine [Mass ratio] 17.6 mg/mg Normal The [facility] Comment on above: Performed By: #### R SPLUS #### [facility] [address] [place] [address] Dr. Cuba Weber C. DIFF PCRon 07-20-2022 C. DIFFICILE PCR Negative Normal NEGATIVE [facility] Comment on above: Performed By: #### L ACT #### [facility] [address] [place] [address] Dr. Cuba Weber CBC W MANUAL DIFFon 07-21-19 ANISOCYTOSIS 1+ Normal The [facility] Comment on above: Performed By: #### C BCMAN #### [facility] [address] [place] [address] Dr. Cuba Weber ATYPICAL LYMPH # Normal [facility] Comment on above: Performed By: #### C BCMAN #### [facility] [address] [place] [address] Dr. Cuba Weber ATYPICAL LYMPH % Normal [facility] Comment on above: Performed By: #### C PETEYMAN #### [facility] [address] [place] [address] Dr. Cuba Weber BAND # 0.7 103/ul Critically high 0.0-0.3 [facility] Comment on above: Performed By: #### C BCMAN #### [facility] [address] [place] [address] Dr. Cuba Weber BAND % 11 % Critically high 0-5 [facility] Comment on above: Performed By: #### C PETEYMAN #### [facility] [address] [place] [address] Dr. Cuba Weber BASOM # 0.00 103/ul Normal 0.00-0.10 [facility] Comment on above: Performed By: #### C BCTEER #### [facility] [address] [place] [address] Dr. Cuba Weber BASOM % 0.0 % Critically low 0.2-2.0 [facility] Comment on above: Performed By: #### C BCTERE #### [facility] [address] [place] [address] Dr. Cuba Weber BLAST # Normal [facility] Comment on above: Performed By: #### C BCTERE #### [facility] [address] [place] [address] Dr. Cuba Weber BLAST % Normal [facility] Comment on above: Performed By: #### C YAHIR #### [facility] [address] [place] [address] Dr. Cuba Weber CORRECTED WBC Normal 4.0-11.0 [facility] Comment on above: Performed By: #### C YAHIR #### [facility] [address] [place] [address] Dr. Cuba Weber EOS # 0.06 103/ul Normal 0.00-0.70 [facility] Comment on above: Performed By: #### C BCTERE #### [facility] [address] [place] [address] Dr. Cuba Weber EOS% 1.0 % Normal 0.9-7.0 [facility] Comment on above: Performed By: #### C YAHIR #### [facility] [address] [place] [address] Dr. Cuba Weber HCT 34.7 % Critically low 42.0-54.0 [facility] Comment on above: Performed By: #### C BCTERE #### [facility] [address] [place] [address] Dr. Cuba Weber HGB 11.7 g/dl Critically low 14.0-18.0 [facility] Comment on above: Performed By: #### C YAHIR #### [facility] [address] [place] [address] Dr. Cuba Weber LYMPHM # 0.48 103/ul Critically low 1.20-3.80 [facility] Comment on above: Performed By: #### C YAHIR #### [facility] [address] [place] [address] Dr. Cuba Weber LYMPHM% 8.0 % Critically low 20.5-60.0 [facility] Comment on above: Performed By: #### C YAHIR #### [facility] [address] [place] [address] Dr. Cuba Weber MCH 28.4 pg Normal 25.9-34.0 [facility] Comment on above: Performed By: #### C YAHIR #### [facility] [address] [place] [address] Dr. Cuba Weber MCHC 33.7 g/dl Normal 29.9-35.2 [facility] Comment on above: Performed By: #### C YAHIR #### [facility] [address] [place] [address] Dr. Cuba Weber MCV 84.2 fL Normal 80.0-94.0 [facility] Comment on above: Performed By: #### C YAHIR #### [facility] [address] [place] [address] Dr. Cuba Weber METAMYELOCYTE # Normal [facility] Comment on above: Performed By: #### C YAHIR #### [facility] [address] [place] [address] Dr. Cuba Weber METAMYELOCYTE % Normal [facility] Comment on above: Performed By: #### C YAHIR #### [facility] [address] [place] [address] Dr. Cuba Weber MONOM# 0.18 103/ul Critically low 0.30-0.80 [facility] Comment on above: Performed By: #### C YAHIR #### [facility] [address] [place] [address] Dr. Cuba Weber MONOM% 3.0 % Normal 1.7-12.0 [facility] Comment on above: Performed By: #### C YAHIR #### [facility] [address] [address] [address] Cuba Weber MPV 10.6 fL Normal 9.5-13.5 [facility] Comment on above: Performed By: #### C YAHIR #### [facility] [address] [place] [address] Dr. Cuba Weber MYELOCYTE # Normal [facility] Comment on above: Performed By: #### C YAHIR #### [facility] [address] [place] [address] Dr. Cuba Weber MYELOCYTE % Normal [facility] Comment on above: Performed By: #### C YAHIR #### [facility] [address] [place] [address] Dr. Cuba Weber NRBC Normal [facility] Comment on above: Performed By: #### C YAHIR #### [facility] [facility] [address] [place] [address] Dr. Cuba Weber PLT 80 103/ul Critically low 150-450 [facility] Comment on above: Performed By: #### C YAHIR #### [facility] [address] [place] [address] Dr. Cuba Weber RBC 4.12 106/ul Critically low 4.70-6.10 [facility] Comment on above: Performed By: #### C YAHIR #### [facility] [address] [place] [address] Dr. Cuba Weber RDW 14.9 % Normal 11.0-15.0 [facility] Comment on above: Performed By: #### C YAHIR #### [facility] [address] [place] [address] Dr. Cuba Weber SEG # 4.62 103/ul Normal 1.40-6.50 [facility] Comment on above: Performed By: #### C YAHIR #### [facility] [address] [place] [address] Dr. Cuba Weber SEG % 77.0 % Critically high 43.0-75.0 [facility] Comment on above: Performed By: #### C YAHIR #### [facility] [address] [place] [address] Dr. Cuba Weber WBC 6.0 103/ul Normal 4.0-11.0 [facility] Comment on above: Performed By: #### C BCMAN #### [facility] [address] [address] [address] Cuba Weber ATYPICAL LYMPH # Normal [facility] Comment on above: Performed By: #### L ACT #### [facility] [address] [address] [address] Cuba Weber ATYPICAL LYMPH % Normal [facility] Comment on above: Performed By: #### L ACT #### [facility] [address] [address] [address] Cuba Weber BAND # 1.9 103/ul Critically high 0.0-0.3 [facility] Comment on above: Performed By: #### L ACT #### [facility] [address] [place] [address] Dr. Cuba Weber BAND % 10 % Critically high 0-5 [facility] Comment on above: Performed By: #### L ACT #### [facility] [address] [place] [address] Dr. Cuba Weber BASOM # 0.00 103/ul Normal 0.00-0.10 The [facility] Comment on above: Performed By: #### L ACT #### [facility] [address] [address] [address] Cuba Weber BASOM % 0.0 % Critically low 0.2-2.0 [facility] Comment on above: Performed By: #### L ACT #### [facility] [address] [address] [address] Cuba Weber BLAST # Normal [facility] Comment on above: Performed By: #### L ACT #### [facility] [address] [address] [address] Cuba Weber BLAST % Normal The [facility] Comment on above: Performed By: #### L ACT #### [facility] [address] [address] [address] Cuba Weber CORRECTED WBC Normal 4.0-11.0 The [facility] Comment on above: Performed By: #### L ACT #### [facility] [address] [address] [address] Cuba Weber EOS # 0.00 103/ul Normal 0.00-0.70 The [facility] Comment on above: Performed By: #### L ACT #### [facility] [address] [address] [address] Cuba Weber EOS% 0.0 % Critically low 0.9-7.0 [facility] Comment on above: Performed By: #### L ACT #### [facility] [address] [address] [address] Cuba Weber HCT 31.9 % Critically low 42.0-54.0 [facility] Comment on above: Performed By: #### L ACT #### [facility] [address] [address] [address] Cuba Weber HGB 10.6 g/dl Critically low 14.0-18.0 [facility] Comment on above: Performed By: #### L ACT #### [facility] [address] [address] [address] Cuba Weber LYMPHM # 1.15 103/ul Critically low 1.20-3.80 [facility] Comment on above: Performed By: #### L ACT #### [facility] [address] [address] [address] Cuba Weber LYMPHM% 6.0 % Critically low 20.5-60.0 [facility] Comment on above: Performed By: #### L ACT #### [facility] [address] [address] [address] Cuba Weber MCH 28.5 pg Normal 25.9-34.0 The [facility] Comment on above: Performed By: #### L ACT #### [facility] [address] [address] [address] Cuba Weber MCHC 33.2 g/dl Normal 29.9-35.2 The [facility] Comment on above: Performed By: #### L ACT #### [facility] [address] [address] [address] Cuba Weber MCV 85.8 fL Normal 80.0-94.0 [facility] Comment on above: Performed By: #### L ACT #### [facility] [address] [place] [address] Dr. Cuba Weber METAMYELOCYTE # Normal [facility] Comment on above: Performed By: #### L ACT #### [facility] [address] [place] [address] Dr. Cuba Weber METAMYELOCYTE % Normal [facility] Comment on above: Performed By: #### L ACT #### [facility] [address] [place] [address] Dr. Cuba Weber MONOM# 0.00 103/ul Critically low 0.30-0.80 [facility] Comment on above: Performed By: #### L ACT #### [facility] [address] [place] [address] Dr. Cuba Weber MONOM% 0.0 % Critically low 1.7-12.0 [facility] Comment on above: Performed By: #### L ACT #### [facility] [address] [place] [address] Dr. Cuba Weber MPV 10.7 fL Normal 9.5-13.5 [facility] Comment on above: Performed By: #### L ACT #### [facility] [address] [place] [address] Dr. Cuba Weber MYELOCYTE # Normal The [facility] Comment on above: Performed By: #### L ACT #### [facility] [address] [place] [address] Dr. Cuba Weber MYELOCYTE % Normal [facility] Comment on above: Performed By: #### L ACT #### [facility] [address] [place] [address] Dr. Cuba Weber NRBC Normal [facility] Comment on above: Performed By: #### L ACT #### [facility] [address] [place] [address] Dr. Cuba Weber PLT 93 103/ul Critically low 150-450 [facility] Comment on above: Performed By: #### L ACT #### [facility] [address] [place], [place] [address] [address] Cuba Weber RBC 3.72 106/ul Critically low 4.70-6.10 [facility] Comment on above: Performed By: #### L ACT #### [facility] [address] [place], [place] [address] Dr[address] Cuba Weber RDW 14.7 % Normal 11.0-15.0 [facility] Comment on above: Performed By: #### L ACT #### [facility] [address] [place], [place] [address] Dr[address] Cuba Weber SEG # 16.13 103/ul Critically high 1.40-6.50 [facility] Comment on above: Performed By: #### L ACT #### [facility] [address] [place], [place] [address] Dr[address] Cuba Weber SEG % 84.0 % Critically high 43.0-75.0 [facility] Comment on above: Performed By: #### L ACT #### [facility] [address] [place], [place] [address] Dr[address] Cuba Weber WBC 19.2 103/ul Critically high 4.0-11.0 [facility] Comment on above: Performed By: #### L ACT #### [facility] [id number] Cuba Weber CT ABD/PELVIS WO CONon [...] by: MINERVA REN Date: 2022-07-20 16:47 Normal The [facility] MAGNESIUMon 07-20-2022 Magnesium [Mass/Vol] 1.5 mg/dL Critically low 1.8-2.4 [facility] Comment on above: Performed By: #### L ACT #### [facility] [address] [place], [place] [address] Dr. Cuba Weber Magnesium [Mass/Vol] 1.3 mg/dL Critically low 1.8-2.4 [facility] Comment on above: Performed By: #### M Charla, CMP ####[facility] [address] [place], [place] [address]JjDr. Cuba Weber PROF 14(COMP METB)on 023 Albumin [Mass/Vol] 2.7 g/dL Critically low 3.4-5.0 Th e [facility] Comment on above: Performed By: #### L ACT #### [facility] [address] [place] [address] Dr. Cuba Weber Albumin/Globulin [Mass ratio] 0.7 {ratio} Normal [facility] Comment on above: Performed By: #### L ACT #### [facility] [address] [place] [address] Dr. Cuba Weber ALP [Catalytic activity/Vol] 89 U/L Normal 46-116 [facility] Comment on above: Performed By: #### L ACT #### [facility] [address] [place] [address] Dr. Cuba Weber ALT [Catalytic activity/Vol] 42 U/L Normal 16-63 [facility] Comment on above: Performed By: #### L ACT #### [facility] [address] [place] [address] Dr. Cuba Weber Anion gap [Moles/Vol] 19.1 mmol/L Normal [facility] [place] Comment on above: Performed By: #### L ACT #### [facility] [address] [place] [address] Dr. Cuba Weber AST [Catalytic activity/Vol] 60 U/L Critically high 15-37 [facility] Comment on above: Performed By: #### L ACT #### [facility] [address] [place] [address] Dr. Cuba Weber Bilirubin [Mass/Vol] 1.9 mg/dL Critically high 0.2-1.0 [facility] Comment on above: Performed By: #### L ACT #### [facility] [address] [place] [address] Dr. Cuba Weber Calcium [Mass/Vol] 8.2 mg/dL Critically low 8.5-10.1 [facility] [place] Comment on above: Performed By: #### L ACT #### [facility] [address] [place] [address] Dr. Cuba Weber Chloride [Moles/Vol] 102 mmol/L Normal 98-107 [facility] Comment on above: Performed By: #### L ACT #### [facility] [address] [place] [address] Dr. Cuba Weber CO2 [Moles/Vol] 20.2 mmol/L Critically low 21.0-32.0 [facility] Comment on above: Performed By: #### L ACT #### [facility] [address] [address] [address] Cuba Weber Creatinine [Mass/Vol] 2.29 mg/dL Critically high 0.70-1.30 [facility] Comment on above: Performed By: #### L ACT #### [facility] [address] [address] [address] Cuba Weber EGFR-AF URUGUAYAN 35 mL/min/1.73m2 Critically low >=60 [facility] Comment on above: Performed By: #### L ACT #### [facility] [address] [address] [address] Cuba Weber EGFR-NON AF URUGUAYAN 29 mL/min/1.73m2 Critically low >=60 [facility] Comment on above: Performed By: #### L ACT #### [facility] [address] [address] [address] Cuba Weber Globulin (S) [Mass/Vol] 3.9 g/dL Normal [facility] Comment on above: Performed By: #### L ACT #### [facility] [address] [place] [address] Dr. Cuba Weber Glucose [Mass/Vol] 78 mg/dL Normal 74-106 [facility] Comment on above: Performed By: #### L ACT #### [facility] [address] [address] [address] Cuba Weber Potassium [Moles/Vol] 4.3 mmol/L Normal 3.5-5.1 [facility] Comment on above: Performed By: #### L ACT #### [facility] [address] [address] [address] Cuba Weber Protein [Mass/Vol] 6.6 g/dL Normal 6.4-8.2 [facility] Comment on above: Performed By: #### L ACT #### [facility] [address] [address] [address] Cuba Weber Sodium [Moles/Vol] 137 mmol/L Normal 136-145 [facility] Comment on above: Performed By: #### L ACT #### [facility] [address] [address] [address] Cuba Weber Urea nitrogen [Mass/Vol] 30.0 mg/dL Critically high 7.0-18.0 [facility] Comment on above: Performed By: #### L ACT #### [facility] [address] [address] [address] Cuba Weber Urea nitrogen/Creatinine [Mass ratio] 13.1 mg/mg Normal [facility] Comment on above: Performed By: #### L ACT #### [facility] [address] [address] [address] Cuba Weber Albumin [Mass/Vol] 2.4 g/dL Critically low 3.4-5.0 [facility] [place] Comment on above: Performed By: #### M G, CMP ####[facility] [address] [id number][address] Cuba Weber Albumin/Globulin [Mass ratio] 0.7 {ratio} Normal [facility] Comment on above: Performed By: #### M G, CMP ####[facility] [address] [address]Dr[address] Cuba Weber ALP [Catalytic activity/Vol] 65 U/L Normal 46-116 [facility] Comment on above: Performed By: #### M G, CMP ####[facility] [address] [id number][address] Cuba Weber ALT [Catalytic activity/Vol] 33 U/L Normal 16-63 [facility] Comment on above: Performed By: #### M G, CMP ####[facility] [address] [address]DrGlory Weber Anion gap [Moles/Vol] 14.1 mmol/L Normal [facility] [place] Comment on above: Performed By: #### M G, CMP ####[facility] [address] [id number]. Cuba Weber AST [Catalytic activity/Vol] 42 U/L Critically high 15-37 The [facility] Comment on above: Performed By: #### M G, CMP ####[facility] [address] [address]Dr. Cuba Weber Bilirubin [Mass/Vol] 1.5 mg/dL Critically high 0.2-1.0 [facility] Comment on above: Performed By: #### M G, CMP ####[facility] [address] [place], [place] [address]Dr. Cuba Weber Calcium [Mass/Vol] 7.8 mg/dL Critically low 8.5-10.1 Th e [facility] Comment on above: Performed By: #### M Charla, CMP ####[facility] [address] [place], [place] [address]Dr. Cuba Weber Chloride [Moles/Vol] 104 mmol/L Normal 98-107 [facility] Comment on above: Performed By: #### Wendy Dunham, CMP ####[facility] [address] [place], [place] [address]Dr. Cuba Weber CO2 [Moles/Vol] 20.8 mmol/L Critically low 21.0-32.0 The [facility] Comment on above: Performed By: #### Wendy Dunham, CMP ####[facility] [address] [place], [place] [address]Dr. Cuba Weber Creatinine [Mass/Vol] 2.41 mg/dL Critically high 0.70-1.30 [facility] Comment on above: Performed By: #### Wendy Dunham, CMP ####[facility] [address] [place], [place] [address]Dr. Cuba Weber EGFR-AF URUGUAYAN 33 mL/min/1.73m2 Critically low >=60 The [facility] Comment on above: Performed By: #### Wendy Dunham, CMP ####[facility] [address] [place], [place] [address]Dr. Cuba Weber EGFR-NON AF URUGUAYAN 27 mL/min/1.73m2 Critically low >=60 The [facility] Comment on above: Performed By: #### Wendy Dunham, CMP ####[facility] [address] [place], [place] [address]Dr. Cuba Weber Globulin (S) [Mass/Vol] 3.5 g/dL Normal [facility] Comment on above: Performed By: #### Wendy Dunham, CMP ####[facility] [address] [address] Sharynshasta Weber Glucose [Mass/Vol] 85 mg/dL Normal 74-106 [facility] Comment on above: Performed By: #### Wendy Dunham, CMP ####[facility] [address] [address]Dr[address] Cuba Weber Potassium [Moles/Vol] 3.9 mmol/L Normal 3.5-5.1 [facility] Comment on above: Performed By: #### Wendy Dunham, CMP ####[facility] [address] [place], [place] [address]Dr. Cuba Weber Protein [Mass/Vol] 5.9 g/dL Critically low 6.4-8.2 [facility] Comment on above: Performed By: #### Wendy Dunham, CMP ####[facility] [address] [place], [place] [address]Dr. Cuba Weber Sodium [Moles/Vol] 135 mmol/L Critically low 136-145 [facility] [place] Comment on above: Performed By: #### Wendy Dunham, CMP ####[facility] [address] [place], [place] [address]Dr. Cuba Weber Urea nitrogen [Mass/Vol] 36.0 mg/dL Critically high 7.0-18.0 [facility] Comment on above: Performed By: #### Wendy Dunham, CMP ####[facility] [address] [address]Dr[address] Cuba Weber Urea nitrogen/Creatinine [Mass ratio] 14.9 mg/mg Normal [facility] Comment on above: Performed By: #### Wendy Dunham, CMP ####[facility] [address] [address] Cuba Weber UA RANDOMon 07-20-2022 Bilirubin Ql (U) Negative Normal NEGATIVE [facility] Comment on above: Performed By: #### R SPLUS #### [facility] [address] [place] [address] Dr. Cuba Weber Clarity (U) CLEAR Normal CLEAR The [facility] Comment on above: Performed By: #### R SPLUS #### [facility] [address] [place] [address] Dr. Cuba Weber Color (U) YELLOW Normal YELLOW The [facility] Comment on above: Performed By: #### R SPLUS #### [facility] [address] [place] [address] Dr. Cuba Weber Glucose Ql (U) Negative Normal NEGATIVE [facility] Comment on above: Performed By: #### R SPLUS #### [facility] [address] [place] [address] Dr. Cuba Weber Hemoglobin Ql (U) LARGE Abnormal NEGATIVE The [facility] Comment on above: Performed By: #### R SPLUS #### [facility] [address] [place] [address] Dr. Cuba Weber Ketones Ql (U) Negative Normal NEGATIVE [facility] Comment on above: Performed By: #### R SPLUS #### [facility] [address] [place] [address] Dr. Cuba Weber LEUKOCYTES LARGE Abnormal NEGATIVE [facility] Comment on above: Performed By: #### R SPLUS #### [facility] [address] [place] [address] Dr. Cuba Weber Nitrite Ql (U) Negative Normal NEGATIVE [facility] Comment on above: Performed By: #### R SPLUS #### [facility] [address] [place] [address] Dr. Cuba Weber pH (U) 6.5 [pH] Normal 5-9 The [facility] Comment on above: Performed By: #### R SPLUS #### [facility] [address] [place] [address] Dr. Cuba Weber SPEC GRAVITY <=1.005 Abnormal 1.005-<=1.02 5 [facility] Comment on above: Performed By: #### R SPLUS #### [facility] [address] [place] [address] Dr. Cuba Weber UA PROTEIN 100 mg/dl Abnormal NEGATIVE/ TRACE The [facility] Comment on above: Performed By: #### R SPLUS #### [facility] [address] [place] [address] Dr. Cuba Weber Urobilinogen Qn (U) 1.0 {Kalina'U}/dL Normal 0.2 - 1. 0 [facility] Comment on above: Performed By: #### R SPLUS #### [facility] [address] [place] [address] Dr. uCba Weber BLOOD CULTURE ID PANELon A. baumannii Not detected Normal NOT DETECTED The [facility] Comment on above: Performed By: #### L ACT #### [facility] [address] [place] [address] Dr. Cuba Weber Bacteriodes fragilis Not detected Normal NOT DETECTED The [facility] Comment on above: Performed By: #### L ACT #### [facility] [address] [place] [address] Dr. Cuba TOBARD CONTROLS PASSED Normal The [facility] Comment on above: Performed By: #### L ACT #### [facility] [address] [place] [address] Dr. Cuba Weber BCIDBTHD BLOOD CULTURE BOTTLE INFORMATION Normal The [facility] Comment on above: Performed By: #### L ACT #### [facility] [address] [place] [address] Dr. Cuba Weber BCIDHD1 ANTIMICROBIAL RESISTANCE GENES Normal [facility] Comment on above: Performed By: #### L ACT #### [facility] [address] [place] [address] Dr. Cuba Weber BCIDHD2 SEE BELOW Normal The [facility] Comment on above: Result Comment: Note : Antimicrobial resitance can occur via multiple mechanisms. A Not Detected result for the [employer] antomicrobial resistance gene assays does not indicate antimicrobial susceptibility. Subculturing is required for species identification and susceptibility testing of isolates. Performed By: #### L ACT #### [facility] [address] [place] [address] Dr. Cuba Weber BCIDHD3 Positive [facility] Comment on above: Performed By: #### L ACT #### [facility] [address] [address] [address] Cuba Weber BCIDHD4 Negative Normal The [facility] Comment on above: Performed By: #### L ACT #### [facility] [address] [address] [address] Cuba Weber BCIDHD5 YEAST Normal [facility] Comment on above: Performed By: #### L ACT #### [facility] [address] [address] [address] Cuba Weber Bottle Set: Set 1 Normal [facility] Comment on above: Performed By: #### L ACT #### [facility] [address] [address] [address] Cuba Weber Bottle: Aerobic Normal [facility] Comment on above: Performed By: #### L ACT #### [facility] [address] [address] [address] Cuba Weber C. neoformans/gattii Not detected Normal NOT DETECTED [facility] Comment on above: Performed By: #### L ACT #### [facility] [address] [address] [address] Cuba Weber Marleny albicans Not detected Normal NOT DETECTED The [facility] Comment on above: Performed By: #### L ACT #### [facility] [address] [address] [address] Cuba Weber Marleny auris Not detected Normal NOT DETECTED The [facility] Comment on above: Performed By: #### L ACT #### [facility] [address] [address] [address] Cuba Weber Marleny glabrata Not detected Normal NOT DETECTED The [facility] Comment on above: Performed By: #### L ACT #### [facility] [address] [address] [address] Cuba Weber Marleny Krusei Not detected Normal NOT DETECTED The [facility] Comment on above: Performed By: #### L ACT #### [facility] [address] [address] [address] Cuba Weber Marleny Parapsilosis Not detected Normal NOT DETECTED The [facility] Comment on above: Performed By: #### L ACT #### [facility] [address] [place] [address] Dr. Cuba Weber Marleny Tropicalis Not detected Normal NOT DETECTED [facility] [place] Comment on above: Performed By: #### L ACT #### [facility] [address] [address] [address] Cuba Weber CTX-M Resistant Gene Detected Abnormal NOT DETECTED [facility] Comment on above: Performed By: #### L ACT #### [facility] [address] [place] [address] Dr. Cuba Weber E. Cloacae complex Not detected Normal NOT DETECTED [facility] Comment on above: Performed By: #### L ACT #### [facility] [address] [place] [address] Dr. Cuba Weber E. faecalis Not detected Normal NOT DETECTED [facility] Comment on above: Performed By: #### L ACT #### [facility] [address] [place] [address] Dr. Cuba Weber E. faecium Not detected Normal NOT DETECTED [facility] Comment on above: Performed By: #### L ACT #### [facility] [address] [place] [address] Dr. Cuba Weber Enterobacteriaceae Detected Critically abnormal NOT DETECTED The [facility] Comment on above: Performed By: #### L ACT #### [facility] [address] [place] [address] Dr. Cuba Weber Escherichia coli Not detected Normal NOT DETECTED The [facility] Comment on above: Performed By: #### L ACT #### [facility] [address] [place] [address] Dr. Cuba Weber H. influenzae Not detected Normal NOT DETECTED The [facility] Comment on above: Performed By: #### L ACT #### [facility] [address] [place] [address] Dr. Cuba Weber IMP Resistant Gene Not detected Normal NOT DETECTED [facility] Comment on above: Performed By: #### L ACT #### [facility] [address] [place] [address] Dr. Cuba Weber K. oxytoca Not detected Normal NOT DETECTED [facility] Comment on above: Performed By: #### L ACT #### [facility] [address] [place] [address] Dr. Cuba Weber K. pneumoniae Detected Critically abnormal NOT DETECTED [facility] Comment on above: Performed By: #### L ACT #### [facility] [address] [place] [address] Dr. Cuba Weber Klebsiella aerogenes Not detected Normal NOT DETECTED The [facility] Comment on above: Performed By: #### L ACT #### [facility] [address] [place] [address] Dr. Cuab Weber KPC Resistant Gene Not detected Normal NOT DETECTED [facility] Comment on above: Performed By: #### L ACT #### [facility] [address] [place] [address] Dr. Cuba Weber List. monocytogenes Not detected Normal NOT DETECTED [facility] Comment on above: Performed By: #### L ACT #### [facility] [address] [place] [address] Dr. Cuba Weber Mcr-1 Resistant Gene Not detected Normal NOT DETECTED The [facility] Comment on above: Performed By: #### L ACT #### [facility] [address] [place] [address] Dr. Cuba Weber mecA/C Not Applicable Normal NOT DETECTED The [facility] Comment on above: Performed By: #### L ACT #### [facility] [address] [place] [address] Dr. Cuba Weber mecA/C MREJ Not Applicable Normal NOT DETECTED [facility] Comment on above: Performed By: #### L ACT #### [facility] [address] [place] [address] Dr. Cuba Weber N. meningitidis Not detected Normal NOT DETECTED The [facility] Comment on above: Performed By: #### L ACT #### [facility] [address] [place] [address] Dr. Cuba Weber NDM Resistant Gene Not detected Normal NOT DETECTED [facility] Comment on above: Performed By: #### L ACT #### [facility] [address] [place] [address] Dr. Cuba Weber Oxa-48-like Not detected Normal NOT DETECTED [facility] Comment on above: Performed By: #### L ACT #### [facility] [address] [address] [address] Cuba Weber Proteus Not detected Normal NOT DETECTED [facility] Comment on above: Performed By: #### L ACT #### [facility] [address] [place] [address] Dr. Cuba Weber Pseud. aeruginosa Not detected Normal NOT DETECTED The [facility] Comment on above: Performed By: #### L ACT #### [facility] [address] [place] [address] Dr. Cuba Weber S. maltophilia Not detected Normal NOT DETECTED The [facility] Comment on above: Performed By: #### L ACT #### [facility] [address] [place] [address] Dr. Cuba Weber Salmonella Not detected Normal NOT DETECTED [facility] Comment on above: Performed By: #### L ACT #### [facility] [address] [place] [address] Dr. Cuba Weber Seratia marcescens Not detected Normal NOT DETECTED [facility] Comment on above: Performed By: #### L ACT #### [facility] [address] [place] [address] Dr. Cuba Weber Site: Rt Ac Normal The [facility] Comment on above: Performed By: #### L ACT #### [facility] [address] [place] [address] Dr. Cuba Weber Staph. aureus Not detected Normal NOT DETECTED [facility] Comment on above: Performed By: #### L ACT #### [facility] [address] [place] [address] Dr. Cuba Weber Staph. epidermidis Not detected Normal NOT DETECTED [facility] Comment on above: Performed By: #### L ACT #### [facility] [address] [place] [address] Dr. Cuba Weber Staph. lugdunensis Not detected Normal NOT DETECTED [facility] Comment on above: Performed By: #### L ACT #### [facility] [address] [place] [address] Dr. Cuba Weber Staphylococcus Not detected Normal NOT DETECTED The [facility] Comment on above: Performed By: #### L ACT #### [facility] [address] [place] [address] Dr. Cuba Weber Strep. agalactiae Not detected Normal NOT DETECTED [facility] Comment on above: Performed By: #### L ACT #### [facility] [address] [place] [address] Dr. Cuba Weber Strep. pneumoniae Not detected Normal NOT DETECTED [facility] Comment on above: Performed By: #### L ACT #### [facility] [address] [place] [address] Dr. Cuba Weber Strep. pyogenes Not detected Normal NOT DETECTED [facility] Comment on above: Performed By: #### L ACT #### [facility] [address] [place] [address] Dr. Cuba Weber Streptococcus Not detected Normal NOT DETECTED [facility] Comment on above: Performed By: #### L ACT #### [facility] [address] [place] [address] Dr. Cuba Weber Wilbert/B Resist. Gene Not Applicable Normal NOT DETECTED [facility] Comment on above: Performed By: #### L ACT #### [facility] [address] [place] [address] Dr. Cuba Weber VIM Resistant Gene Not detected Normal NOT DETECTED [facility] Comment on above: Performed By: #### L ACT #### [facility] [address] [place] [address] Dr. Cuba Weber CBC W MANUAL DIFFon 07-20-19 23 ANISOCYTOSIS 1+ Normal [facility] Comment on above: Performed By: #### C PETEYMAN #### [facility] [address] [place] [address] Dr. Cuba Weber ATYPICAL LYMPH # Normal [facility] Comment on above: Performed By: #### C BCMAN #### [facility] [address] [place] [address] Dr. Cuba Weber ATYPICAL LYMPH % Normal [facility] Comment on above: Performed By: #### C YAHIR #### [facility] [address] [place] [address] Dr. Cuba Weber BAND # 0.1 103/ul Normal 0.0-0.3 [facility] Comment on above: Performed By: #### C YAHIR #### [facility] [address] [place] [address] Dr. Cuba Weber BAND % 1 % Normal 0-5 [facility] Comment on above: Performed By: #### C YAHIR #### [facility] [address] [place] [address] Dr. Cuba Weber BASOM # 0.00 103/ul Normal 0.00-0.10 [facility] Comment on above: Performed By: #### C YAHIR #### [facility] [address] [place] [address] Dr. Cuba Weber BASOM % 0.0 % Critically low 0.2-2.0 [facility] Comment on above: Performed By: #### C YAHIR #### [facility] [address] [place] [address] Dr. Cuba Weber BLAST # Normal [facility] Comment on above: Performed By: #### C YAHIR #### [facility] [address] [place] [address] Dr. Cuba Weber BLAST % Normal The [facility] Comment on above: Performed By: #### C YAHIR #### [facility] [address] [place] [address] Dr. Cuba Weber CORRECTED WBC Normal 4.0-11.0 The [facility] Comment on above: Performed By: #### C YAHIR #### [facility] [address] [place] [address] Dr. Cuba Weber EOS # 0.00 103/ul Normal 0.00-0.70 [facility] Comment on above: Performed By: #### C YAHIR #### [facility] [address] [address] [address] Cuba Weber EOS% 0.0 % Critically low 0.9-7.0 [facility] Comment on above: Performed By: #### C YAHIR #### [facility] [address] [place] [address] Dr. Cuba Weber HCT 39.0 % Critically low 42.0-54.0 [facility] Comment on above: Performed By: #### C YAHIR #### [facility] [address] [address] [address] Cuba Weber HGB 13.2 g/dl Critically low 14.0-18.0 [facility] Comment on above: Performed By: #### C YAHIR #### [facility] [address] [place] [address] Dr. Cuba Weber LYMPHM # 0.67 103/ul Critically low 1.20-3.80 [facility] Comment on above: Performed By: #### Donnell SINCLAIR #### [facility] [address] [place] [address] Dr. Cuba Weber LYMPHM% 7.0 % Critically low 20.5-60.0 [facility] Comment on above: Performed By: #### Donnell SINCLAIR #### [facility] [address] [place] [address] Dr. Cuba Weber MCH 28.6 pg Normal 25.9-34.0 The [facility] Comment on above: Performed By: #### Donnell SINCLAIR #### [facility] [address] [address] [address] Cuba Weber MCHC 33.8 g/dl Normal 29.9-35.2 The [facility] Comment on above: Performed By: #### Donnell SINCLAIR #### [facility] [address] [place] [address] Dr. Cuba Weber MCV 84.6 fL Normal 80.0-94.0 The [facility] Comment on above: Performed By: #### Donnell SINCLAIR #### [facility] [address] [place] [address] Dr. Cuba Weber METAMYELOCYTE # Normal [facility] Comment on above: Performed By: #### C YAHIR #### [facility] [address] [address] [address] Cuba Weber METAMYELOCYTE % Normal [facility] Comment on above: Performed By: #### C YAHIR #### [facility] [address] [address] [address] Cuba Weber MONOM# 0.29 103/ul Critically low 0.30-0.80 [facility] Comment on above: Performed By: #### C AYHIR #### [facility] [address] [place] [address] Dr. Cuba Weber MONOM% 3.0 % Normal 1.7-12.0 [facility] Comment on above: Performed By: #### C YAHIR #### [facility] [address] [place] [address] Dr. Cuba Weber MPV 10.1 fL Normal 9.5-13.5 [facility] Comment on above: Performed By: #### C YAHIR #### [facility] [address] [place] [address] Dr. Cuba Weber MYELOCYTE # Normal [facility] Comment on above: Performed By: #### C YAHIR #### [facility] [address] [place] [address] Dr. Cuba Weber MYELOCYTE % Normal The [facility] Comment on above: Performed By: #### C YAHIR #### [facility] [address] [place] [address] Dr. Cuba Weber NRBC Normal [facility] Comment on above: Performed By: #### C YAHIR #### [facility] [address] [address] [address] Cuba Weber PLT 115 103/ul Critically low 150-450 [facility] Comment on above: Performed By: #### C YAHIR #### [facility] [address] [place] [address] Dr. Cuba Weber RBC 4.61 106/ul Critically low 4.70-6.10 [facility] Comment on above: Performed By: #### C BCMAN #### [facility] [address] [place] [address] Dr. Cuba Weber RDW 14.3 % Normal 11.0-15.0 [facility] Comment on above: Performed By: #### C BCMAN #### [facility] [address] [place] [address] Dr. Cuba Weber SEG # 8.54 103/ul Critically high 1.40-6.50 [facility] Comment on above: Performed By: #### C BCMAN #### [facility] [address] [place] [address] Dr. Cuba Weber SEG % 89.0 % Critically high 43.0-75.0 [facility] Comment on above: Performed By: #### C BCMAN #### [facility] [address] [place] [address] Dr. Cuba Weber WBC 9.6 103/ul Normal 4.0-11.0 [facility] Comment on above: Performed By: #### C BCMAN #### [facility] [address] [place] [address] Dr. Cuba Weber CULTURE BLOODon 07-19-2022 Microscopic examination of blood, culture Culture Observations: Pediatric bottle positive; BCID= Klebsiella Pneumoniae Culture Observations: Refer to accession #[id number] for susceptibilities. Isolate 1 Klebsiella pneumoniae Growth of Normal The [facility] Comment on above: Performed By: #### C BC #### [facility] [address] [place] [address] Dr. Cuba Weber LACTATE/LACTIC ACIDon 2022 Lactate [Moles/Vol] 2.9 mmol/L Critically high 0.4-2.0 [facility] Comment on above: Performed By: #### C BC #### [facility] [address] [place] [address] Dr. Cuba Weber Lactate [Moles/Vol] 3.4 mmol/L Critically high 0.4-2.0 [facility] Comment on above: Performed By: #### L ACT #### [facility] [address] [place] [address] Dr. Cuba Weber OCC BLD IMMUNO SCREENon 06-27 OCCULT BLOOD Negative Normal NEGATIVE [facility] Comment on above: Performed By: #### O BSCRN ####[facility] [id number] [address]Dr[address] Cuba Weber PROF CHEM 8 (BAS METB)on Anion gap [Moles/Vol] 15.1 mmol/L Normal [facility] Comment on above: Performed By: #### B MP, HSTROPN ####[facility] [id number] [address]Dr[address] Cuba Weber Calcium [Mass/Vol] 8.6 mg/dL Normal 8.5-10.1 [facility] Comment on above: Performed By: #### B MP, HSTROPN ####[facility] [id number] [address]Dr[address] Cuba Weber Chloride [Moles/Vol] 99 mmol/L Normal 98-107 [facility] Comment on above: Performed By: #### B MP, HSTROPN ####[facility] [address] [address] Cuba Weber CO2 [Moles/Vol] 21.5 mmol/L Normal 21.0-32.0 [facility] Comment on above: Performed By: #### B MP, HSTROPN ####[facility] [id number] [address]Dr[address] Cuba Weber Creatinine [Mass/Vol] 2.93 mg/dL Critically high 0.70-1.30 [facility] Comment on above: Performed By: #### B MP, HSTROPN ####[facility] [address] [address] Cuba Weber EGFR-AF URUGUAYAN 26 mL/min/1.73m2 Critically low >=60 [facility] Comment on above: Performed By: #### B MP, HSTROPN ####[facility] [address] [address] Cuba Weber EGFR-NON AF URUGUAYAN 22 mL/min/1.73m2 Critically low >=60 [facility] Comment on above: Performed By: #### B VERNA, HSTROPN ####[facility] [id number] [address]Dr[address] Cuba Weber Glucose [Mass/Vol] 123 mg/dL Critically high 74-106 T [facility] Comment on above: Performed By: #### B VERNA, HSTROPN ####[facility] [address] [address]Dr[address] Cuba Weber Potassium [Moles/Vol] 3.6 mmol/L Normal 3.5-5.1 [facility] Comment on above: Performed By: #### B VERNA, HSTROPN ####[facility] [address] [address]Dr[address] Cuba Weber Sodium [Moles/Vol] 132 mmol/L Critically low 136-145 Th [facility] Comment on above: Performed By: #### B VERNA HSTROPN ####[facility] [address] [address] Cuba Weber Urea nitrogen [Mass/Vol] 34.0 mg/dL Critically high 7.0-18.0 [facility] Comment on above: Performed By: #### B VERNA HSTROPN ####[facility] [address] [address] Cuba Weber Urea nitrogen/Creatinine [Mass ratio] 11.6 mg/mg Normal [facility] Comment on above: Performed By: #### B VERNA HSTROPN ####[facility] [address] [address]Dr[address] Cuba Weber PROTIMEon 07-19-2022 INR Coag (PPP) [Relative time] 1.21 {INR} Normal [facility] Comment on above: Performed By: #### L ACT #### [facility] [address] [address] [address] Cuba Weber INR GUIDELINES SEE BELOW Normal [facility] Comment on above: Result Comment: GRAZYNA RED INR: 2.0 - 3.0 CONDITIONS NOT LISTED BELOW 2.5 - 3.5 FOR PROSTHETIC HEART VALVE REPLACEMENT 2.5 - 3.5 RECURRENT THROMBOSIS Performed By: #### L ACT #### [facility] [address] [place] [address] Dr. Cuba Weber PT Coag (PPP) [Time] 12.7 s Critically high 9.0-11.6 [facility] Comment on above: Performed By: #### L ACT #### [facility] [address] [place] [address] Dr. Cuba Weber PTTon 07-19-2022 aPTT Coag (Bld) [Time] 27.7 s Normal 22.3-36.2 Th [facility] Comment on above: Performed By: #### L ACT #### [facility] [address] [place] [address] Dr. Cuba Weber RESPIRATORY PANEL PLUSon Adenovirus Not detected Normal NOT DETECTED [facility] Comment on above: Performed By: #### R SPLUS #### [facility] [address] [place] [address] Dr. Cuba Monahan. Parapertusis Not detected Normal NOT DETECTED [facility] Comment on above: Performed By: #### R SPLUS #### [facility] [address] [place] [address] Dr. Cuba Gallegos Pertussis Not detected Normal NOT DETECTED [facility] Comment on above: Performed By: #### R SPLUS #### [facility] [address] [place] [address] Dr. Cuba Weber Chlamydia Pneumoniae Not detected Normal NOT DETECTED The [facility] Comment on above: Performed By: #### R SPLUS #### [facility] [address] [place] [address] Dr. Cuba Weber Coronavirus 229E Not detected Normal NOT DETECTED The [facility] Comment on above: Performed By: #### R SPLUS #### [facility] [address] [place] [address] Dr. Cuba Weber Coronavirus HKU1 Not detected Normal NOT DETECTED The [facility] Comment on above: Performed By: #### R SPLUS #### [facility] [address] [address] [address] Cuba Weber Coronavirus NL63 Not detected Normal NOT DETECTED The [facility] Comment on above: Performed By: #### R SPLUS #### [facility] [address] [address] [address] Cuba Weber Coronavirus OC43 Not detected Normal NOT DETECTED The [facility] Comment on above: Performed By: #### R SPLUS #### [facility] [address] [address] [address] Cuba Weber Influenza A H1 Not detected Normal NOT DETECTED The [facility] Comment on above: Performed By: #### R SPLUS #### [facility] [address] [place] [address] Dr. Cuba Weber Influenza A H1 2009 Not detected Normal NOT DETECTED [facility] Comment on above: Performed By: #### R SPLUS #### [facility] [address] [place] [address] Dr. Cuba Weber Influenza A H3 Not detected Normal NOT DETECTED [facility] Comment on above: Performed By: #### R SPLUS #### [facility] [address] [place] [address] Dr. Cuba Weber Influenza B Not detected Normal NOT DETECTED [facility] Comment on above: Performed By: #### R SPLUS #### [facility] [address] [place] [address] Dr. Cuba Weber Metapneumovirus Not detected Normal NOT DETECTED [facility] Comment on above: Performed By: #### R SPLUS #### [facility] [address] [place] [address] Dr. Cuba Weber Mycoplas. Pneumoniae Not detected Normal NOT DETECTED The [facility] Comment on above: Performed By: #### R SPLUS #### [facility] [address] [place] [address] Dr. Cuba Weber Parainfluenza 1 Not detected Normal NOT DETECTED [facility] Comment on above: Performed By: #### R SPLUS #### [facility] [address] [place] [address] Dr. Cuba Weber Parainfluenza 2 Not detected Normal NOT DETECTED [facility] Comment on above: Performed By: #### R SPLUS #### [facility] [address] [place] [address] Dr. Cuba Weber Parainfluenza 3 Not detected Normal NOT DETECTED [facility] Comment on above: Performed By: #### R SPLUS #### [facility] [address] [place] [address] Dr. Cuba Weber Parainfluenza 4 Not detected Normal NOT DETECTED [facility] Comment on above: Performed By: #### R SPLUS #### [facility] [address] [place] [address] Dr. Cuba Weber Rhino/Enterovirus Not detected Normal NOT DETECTED The [facility] Comment on above: Performed By: #### R SPLUS #### [facility] [address] [place] [address] Dr. Cuba Weber RP2 Header 1 RESPIRATORY PANEL: VIRUSES Normal The [facility] Comment on above: Performed By: #### R SPLUS #### [facility] Laboratory [address] [place] [address] Dr. Cuba Weber RP2 Header 2 RESPIRATORY PANEL: BACTERIA Normal The [facility] Comment on above: Performed By: #### R SPLUS #### [facility] [address] [place] [address] Dr. Cuba Weber RSV Not detected Normal NOT DETECTED [facility] Comment on above: Performed By: #### R SPLUS #### [facility] [address] [place] [address] Dr. Cuba Weber SARS-CoV-2 (COVID-19) RNA ROSSANA+probe Ql (Unsp spec) Not detected Normal NOT DETECTED The [facility] Comment on above: Performed By: #### R SPLUS #### [facility] [address] [place] [address] Dr. Cuba Weber TROPONIN, HIGH SENSITIVITYon 07-19-2022 HSTROP 42.9 pg/mL Normal 4.0-76.1 The [facility] Comment on above: Result Comment: CUT- OFF POINTS HAVE BEEN ESTABLISHED BASED ON THE FOURTH UNIVERSAL DEFINITIONS OF MYOCARDIAL INFARCTION. THE UPPER REFERENCE LIMIT (URL) OF TROPONIN, DEFINED THE 99TH PERCENTILE OF cTnI DISTRIBUTION IN A REFERENCE POPULATION, HAS BEEN CONFIRMED THE DECISION THRESHOLD FOR NE DIAGNOSIS. Performed By: #### B VERNA, HSTROPN ####[facility] [address] [place], [place] [address]NxGlory Weber XR CHEST 1 Von 07-19-2022 XR [...] by: MINERVA REN Date: 2022-07-19 12:00 Normal [facility] Formson 06-03-2022 Forms [id number] #1.00CD:127 Normal [facility] ECHOCARDIO M/2D COMPLETEon 0 05-10-2022 ECHOCARDIO M/2D COMPLETE Patient: FEDE GUERRA Exam Date: 05/10/2022 : 1955 Gender:M Ordering : YAZMIN CHILEL Admission #: [id number] Family : Order #: [id number] CLICK HERE TO VIEW EXAM ECHOCARDIOGRAM REPORT [...] Vera M.D. on 05/11/2022 at 08:22 Normal [facility] NM STRESS/REST MULTIon 05-10 NM STRESS/REST MULTI Patient: FEDE GUERRA Exam Date: 05/10/2022 : 1955 Gender:M Ordering : YAZMIN CHILEL Admission #: [id number] Family : Order #: [id number] CLICK HERE TO VIEW EXAM RADIOLOGY REPORT [...] MD on 05/12/2022 at 06:07 Normal The [facility] CARDIAC ERIKA ADMITon 023 CK [Catalytic activity/Vol] 88 U/L Normal 39-308 [facility] Comment on above: Performed By: #### L ACT #### [facility] [address] [place] [address] Dr. Cuba Weber CK.MB [Mass/Vol] ng/mL Normal <=3.60 [facility] Comment on above: Performed By: #### L ACT #### [facility] [address] [place] [address] Dr. Cuba Weber HSTROP 5.9 pg/mL Normal 4.0-76.1 [facility] Comment on above: Result Comment: CUT- OFF POINTS HAVE BEEN ESTABLISHED BASED ON THE FOURTH UNIVERSAL DEFINITIONS OF MYOCARDIAL INFARCTION. THE UPPER REFERENCE LIMIT (URL) OF TROPONIN, DEFINED THE 99TH PERCENTILE OF cTnI DISTRIBUTION IN A REFERENCE POPULATION, HAS BEEN CONFIRMED THE DECISION THRESHOLD FOR NE DIAGNOSIS. Performed By: #### L ACT #### [facility] [address] [place] [address] Dr. Cuba Weber MOISÉS 46 ng/mL Normal 16-96 [facility] Comment on above: Performed By: #### L ACT #### [facility] [address] [place] [address] Dr. Cuba Weber CBC AUTO DIFFon 05-01-2022 BASO # 0.0 103/ul Normal 0.0-0.1 [facility] Comment on above: Performed By: #### R SPLUS #### [facility] [address] [place] [address] Dr. Cuba Weber Basophils/100 WBC (Bld) 1.1 % Normal 0.2-2.0 [facility] Comment on above: Performed By: #### R SPLUS #### [facility] [address] [place] [address] Dr. Cuba Weber EO # 0.2 103/ul Normal 0.0-0.7 [facility] Comment on above: Performed By: #### R SPLUS #### [facility] [address] [place] [address] Dr. Cuba Weber Eosinophils/100 WBC (Bld) 6.4 % Normal 0.9-7.0 [facility] Comment on above: Performed By: #### R SPLUS #### [facility] [address] [place] [address] Dr. Cuba Weber Erythrocyte distribution width (RBC) [Ratio] 13.3 % Normal 11.0-15.0 [facility] Comment on above: Performed By: #### R SPLUS #### [facility] [address] [place] [address] Dr. Cuba Weber Hematocrit (Bld) [Volume fraction] 43.5 % Normal 42.0-54.0 [facility] Comment on above: Performed By: #### R SPLUS #### [facility] [address] [place] [address] Dr. Cuba Weber Hemoglobin (Bld) [Mass/Vol] 13.5 g/dL Critically low 14.0-18.0 [facility] Comment on above: Performed By: #### R SPLUS #### [facility] [address] [place] [address] Dr. Cuba Weber IG # 0.01 10e3/ul Normal 0.00-0.03 [facility] Comment on above: Performed By: #### R SPLUS #### [facility] [address] [place] [address] Dr. Cuba Weber IG % 0.3 % Normal 0.0-0.5 The [facility] Comment on above: Performed By: #### R SPLUS #### [facility] [address] [place] [address] Dr. Cuba Weber LYMPH # 1.5 103/ul Normal 1.2-3.8 The [facility] Comment on above: Performed By: #### R SPLUS #### [facility] [address] [place] [address] Dr. Cuba Weber Lymphocytes/100 WBC (Bld) 40.1 % Normal 20.5-60.0 [facility] Comment on above: Performed By: #### R SPLUS #### [facility] [address] [place] [address] Dr. Cuba Weber MANUAL DIFF REQ NO Normal [facility] Comment on above: Performed By: #### R SPLUS #### [facility] [address] [place] [address] Dr. Cuba Weber MCH (RBC) [Entitic mass] 28.0 pg Normal 25.9-34.0 [facility] Comment on above: Performed By: #### R SPLUS #### [facility] [address] [place] [address] Dr. Cuba Weber MCHC (RBC) [Mass/Vol] 31.0 g/dL Normal 29.9-35.2 [facility] Comment on above: Performed By: #### R SPLUS #### [facility] [address] [place] [address] Dr. Cuba Weber MCV (RBC) [Entitic vol] 90.2 fL Normal 80.0-94.0 [facility] Comment on above: Performed By: #### R SPLUS #### [facility] [address] [place] [address] Dr. Cuba Weber MONO # 0.4 103/ul Normal 0.3-0.8 [facility] Comment on above: Performed By: #### R SPLUS #### [facility] [address] [place] [address] Dr. Cuba Weber Monocytes/100 WBC (Bld) 11.9 % Normal 1.7-12.0 [facility] Comment on above: Performed By: #### R SPLUS #### [facility] [address] [place] [address] Dr. Cuba Weber NEUT # 1.5 103/ul Normal 1.4-6.5 [facility] Comment on above: Performed By: #### R SPLUS #### [facility] [address] [place] [address] Dr. Cuba Weber Neutrophils/100 WBC (Bld) 40.2 % Critically low 43.0-75.0 [facility] Comment on above: Performed By: #### R SPLUS #### [facility] [address] [place] [address] Dr. Cuba Weber Platelet mean volume (Bld) [Entitic vol] 9.5 fL Normal 9.5-13.5 [facility] Comment on above: Performed By: #### R SPLUS #### [facility] [address] [place] [address] Dr. Cuba Weber PLT 239 103/ul Normal 150-450 [facility] Comment on above: Performed By: #### R SPLUS #### [facility] [address] [place] [address] Dr. Cuba Weber RBC 4.82 106/ul Normal 4.70-6.10 [facility] Comment on above: Performed By: #### R SPLUS #### [facility] [address] [place] [address] Dr. Cuba Weber WBC 3.6 103/ul Critically low 4.0-11.0 [facility] Comment on above: Performed By: #### R SPLUS #### [facility] [address] [place] [address] Dr. Cuba Weber PROF 14(COMP METB)on 023 Albumin [Mass/Vol] 3.7 g/dL Normal 3.4-5.0 [facility] Comment on above: Performed By: #### L ACT #### [facility] [address] [place] [address] Dr. Cuba Weber Albumin/Globulin [Mass ratio] 0.9 {ratio} Normal The [facility] Comment on above: Performed By: #### L ACT #### [facility] [address] [place] [address] Dr. Cuba Weber ALP [Catalytic activity/Vol] 91 U/L Normal 46-116 [facility] Comment on above: Performed By: #### L ACT #### [facility] [address] [place] [address] Dr. Cuba Weber ALT [Catalytic activity/Vol] 20 U/L Normal 16-63 [facility] Comment on above: Performed By: #### L ACT #### [facility] [address] [address] [address] Cuba Weber Anion gap [Moles/Vol] 11.3 mmol/L Normal Th [facility] Comment on above: Performed By: #### L ACT #### [facility] [address] [address] [address] Cuba Weber AST [Catalytic activity/Vol] 22 U/L Normal 15-37 [facility] Comment on above: Performed By: #### L ACT #### [facility] [address] [address] [address] Cuba Weber Bilirubin [Mass/Vol] 0.6 mg/dL Normal 0.2-1.0 [facility] Comment on above: Performed By: #### L ACT #### [facility] [address] [address] [address] Cuba Weber Calcium [Mass/Vol] 9.7 mg/dL Normal 8.5-10.1 [facility] Comment on above: Performed By: #### L ACT #### [facility] [address] [address] [address] Cuba Weber Chloride [Moles/Vol] 107 mmol/L Normal 98-107 [facility] Comment on above: Performed By: #### L ACT #### [facility] [address] [address] [address] Cuba Weber CO2 [Moles/Vol] 29.0 mmol/L Normal 21.0-32.0 [facility] Comment on above: Performed By: #### L ACT #### [facility] [address] [address] [address] Cuba Weber Creatinine [Mass/Vol] 0.79 mg/dL Normal 0.70-1.30 [facility] Comment on above: Performed By: #### L ACT #### [facility] [address] [address] [address] Cuba Weber EGFR-AF URUGUAYAN >60 Normal >=60 [facility] Comment on above: Performed By: #### L ACT #### [facility] [address] [address] [address] Cuba Weber EGFR-NON AF URUGUAYAN >60 Normal >=60 [facility] Comment on above: Performed By: #### L ACT #### [facility] [address] [address] [address] Cuba Weber Globulin (S) [Mass/Vol] 4.0 g/dL Normal T [facility] Comment on above: Performed By: #### L ACT #### [facility] [address] [address] [address] Cuba Weber Glucose [Mass/Vol] 97 mg/dL Normal 74-106 [facility] Comment on above: Performed By: #### L ACT #### [facility] [address] [place] [address] Dr. Cuba Weber Potassium [Moles/Vol] 4.3 mmol/L Normal 3.5-5.1 [facility] Comment on above: Performed By: #### L ACT #### [facility] [address] [place] [address] Dr. Cuba Weber Protein [Mass/Vol] 7.7 g/dL Normal 6.4-8.2 [facility] Comment on above: Performed By: #### L ACT #### [facility] [address] [place] [address] Dr. Cuba Weber Sodium [Moles/Vol] 143 mmol/L Normal 136-145 [facility] Comment on above: Performed By: #### L ACT #### [facility] [address] [address] [address] Cuba Weber Urea nitrogen [Mass/Vol] 11.0 mg/dL Normal 7.0-18.0 [facility] Comment on above: Performed By: #### L ACT #### [facility] [address] [place] [address] Dr. Cuba Weber Urea nitrogen/Creatinine [Mass ratio] 13.9 mg/mg Normal [facility] Comment on above: Performed By: #### L ACT #### [facility] [address] [address] [address] Cuba Weber TROPONIN, HIGH SENSITIVITYon 05-01-2022 HSTROP <4.0 Normal 4.0-76.1 [facility] Comment on above: Result Comment: CUT- OFF POINTS HAVE BEEN ESTABLISHED BASED ON THE FOURTH UNIVERSAL DEFINITIONS OF MYOCARDIAL INFARCTION. THE UPPER REFERENCE LIMIT (URL) OF TROPONIN, DEFINED THE 99TH PERCENTILE OF cTnI DISTRIBUTION IN A REFERENCE POPULATION, HAS BEEN CONFIRMED THE DECISION THRESHOLD FOR NE DIAGNOSIS. Performed By: #### H STROPN ####[facility] [address] [place], [place] [address]SiDr. Cuba Weber XR CHEST 1 Von 05-01-2022 XR [...] by: AUSTIN WHALEY Date: 2022-05-01 09:55 Normal [facility] Telemedicineon 04-23-2022 Telemedicine [id number] Lately,Fede Drew Sr. 1955 M Date Provider Department Center 04/23/2022 3848-YAZMIN CHILEL [facility] No family history on file Level of Service:92167 DC OFFICE/OUTPATIENT NEW MODERATE MDM 45-59 MINUTES Normal [facility] Formson 04-21-2022 Forms [id number] #1.00CD:127 Normal [facility] ECG 12-Leadon 04-15-2022 ECG 12-Lead [id number] #1.00CD:127 Normal [facility] ECG 12-Lead [id number] #1.00CD:127 Normal [facility] ECG 12-Lead [id number] #1.00CD:127 Normal [facility] Formson 04-15-2022 Forms [id number] #1.00CD:127 Normal [facility] Lab Reportson 04-15-2022 Lab Reports [id number] #1.00CD:127 Normal [facility] Lab Reportson 04-12-2022 Lab Reports [id number] #1.00CD:127 Normal [facility] RAD - CT Reporton 04-12-2022 RAD - CT Report [id number] #1.00CD:127 Normal [facility] RAD - MISCon 04-12-2022 RAD - MISC [id number] #1.00CD:127 Normal [facility] CBC AUTO DIFFon 04-09-2022 BASO # 0.0 103/ul Normal 0.0-0.1 [facility] Comment on above: Performed By: #### C BC ####[facility] [address] [place] [address]Dr. Cuba Weber Basophils/100 WBC (Bld) 0.7 % Normal 0.2-2.0 [facility] Comment on above: Performed By: #### C BC ####[facility] [address] [place] [address]Dr. Cuba Weber EO # 0.3 103/ul Normal 0.0-0.7 [facility] Comment on above: Performed By: #### C BC ####[facility] [address] [place] [address]Dr. Cuba Weber Eosinophils/100 WBC (Bld) 6.8 % Normal 0.9-7.0 [facility] Comment on above: Performed By: #### C BC ####[facility] [address] [place] [address]Dr. Cuba Weber Erythrocyte distribution width (RBC) [Ratio] 13.2 % Normal 11.0-15.0 [facility] Comment on above: Performed By: #### C BC ####[facility] [address] [place], [place] [address]Dr. Cuba Weber Hematocrit (Bld) [Volume fraction] 42.5 % Normal 42.0-54.0 [facility] Comment on above: Performed By: #### C BC ####[facility] [address] [place], [place] [address]Dr. Cuba Weber Hemoglobin (Bld) [Mass/Vol] 13.7 g/dL Critically low 14.0-18.0 [facility] Comment on above: Performed By: #### C BC ####[facility] [address] [place], [place] [address]Dr. Cuba Weber IG # 0.01 10e3/ul Normal 0.00-0.03 [facility] Comment on above: Performed By: #### C BC ####[facility] [address] [place], [place] [address]Dr. Cbua Weber IG % 0.2 % Normal 0.0-0.5 [facility] Comment on above: Performed By: #### C BC ####[facility] [address] [place], [place] [address]Dr. Cuba Weber LYMPH # 1.5 103/ul Normal 1.2-3.8 The [facility] Comment on above: Performed By: #### C BC ####[facility] [address] [place], [place] [address]Dr. Cuba Weber Lymphocytes/100 WBC (Bld) 35.8 % Normal 20.5-60.0 The [facility] Comment on above: Performed By: #### C BC ####[facility] [address] [place], [place] [address]Dr. Cuba Weber MANUAL DIFF REQ NO Normal [facility] Comment on above: Performed By: #### C BC ####[facility] [address] [address]Dr. Cuba Gus MCH (RBC) [Entitic mass] 27.5 pg Normal 25.9-34.0 [facility] Comment on above: Performed By: #### C BC ####[facility] [address] [place] [address]Dr. Cuba Gus MCHC (RBC) [Mass/Vol] 32.2 g/dL Normal 29.9-35.2 [facility] Comment on above: Performed By: #### C BC ####[facility] [address] [place] [address]Dr. Cuba Weber MCV (RBC) [Entitic vol] 85.3 fL Normal 80.0-94.0 [facility] Comment on above: Performed By: #### C BC ####[facility] [address] [place], [place] [address]Dr. Cuba Weber MONO # 0.5 103/ul Normal 0.3-0.8 [facility] Comment on above: Performed By: #### C BC ####[facility] [address] [place], [place] [address]Dr. Cuba Weber Monocytes/100 WBC (Bld) 11.2 % Normal 1.7-12.0 [facility] Comment on above: Performed By: #### C BC ####[facility] [address] [place], [place] [address]Dr. Cuba Weber NEUT # 1.9 103/ul Normal 1.4-6.5 [facility] Comment on above: Performed By: #### C BC ####[facility] [address] [place], [place] [address]Dr. Cuba Weber Neutrophils/100 WBC (Bld) 45.3 % Normal 43.0-75.0 The [facility] Comment on above: Performed By: #### C BC ####[facility] [address] [place], [place] [address]Dr. Cuba Weber Platelet mean volume (Bld) [Entitic vol] 10.2 fL Normal 9.5-13.5 [facility] Comment on above: Performed By: #### C BC ####[facility] [address] [place], [place] [address]Cx. Cuba Weber PLT 232 103/ul Normal 150-450 The [facility] Comment on above: Performed By: #### C BC ####[facility] [address] [place], [place] [address]Oc. Cuba Weber RBC 4.98 106/ul Normal 4.70-6.10 The [facility] Comment on above: Performed By: #### C BC ####[facility] [address] [place], [place] [address]He. Cuba Weber WBC 4.3 103/ul Normal 4.0-11.0 The [facility] Comment on above: Performed By: #### C BC ####[facility] [address] [place], [place] [address]GfDr. Cuba Weber Covid-19 PCR (CVDTB)on 03-28 SARS-CoV-2 (COVID-19) RNA ROSSANA+probe Ql (Unsp spec) Not detected Normal NOT DETECTED The [facility] Comment on above: Result Comment: This test is not yet approved or cleared by the [place] FDA. When there are no FDA-approved or cleared tests available, and other criteria are met, FDA can make tests available under an emergency access mechanism called an Emergency Use Authorization (EUA). The EUA for this test is supported by the [place] of Health and Human Service's (HHS's) declaration [...] SARS-CoV-2. Performed By: #### R SPLUS #### [facility] [address] [place], [place] [address] Dr. Cuba Weber PROF CHEM 8 (BAS METB)on Anion gap [Moles/Vol] 14.1 mmol/L Normal [facility] [place] Comment on above: Performed By: #### B MP ####[facility] [address] [address]Dr. Cuba Weber Calcium [Mass/Vol] 9.3 mg/dL Normal 8.5-10.1 [facility] Comment on above: Performed By: #### B MP ####[facility] [address] [place], [place] [address]Dr. Cuba Weber Chloride [Moles/Vol] 106 mmol/L Normal 98-107 [facility] Comment on above: Performed By: #### B MP ####[facility] [address] [place], [place] [address]Dr. Cuba Weber CO2 [Moles/Vol] 26.1 mmol/L Normal 21.0-32.0 [facility] Comment on above: Performed By: #### B MP ####[facility] [address] [place], [place] [address]Dr. Cuba Weber Creatinine [Mass/Vol] 0.93 mg/dL Normal 0.70-1.30 [facility] Comment on above: Performed By: #### B MP ####[facility] [address] [place], [place] [address]Dr. Cuba Weber EGFR-AF URUGUAYAN >60 Normal >=60 [facility] Comment on above: Performed By: #### B MP ####[facility] [address] [place], [place] [address]Dr. Cuba Weber EGFR-NON AF URUGUAYAN >60 Normal >=60 [facility] Comment on above: Performed By: #### B MP ####[facility] [address] [place], [place] [address]DrGlory Weber Glucose [Mass/Vol] 111 mg/dL Critically high 74-106 [facility] Comment on above: Performed By: #### B MP ####[facility] [address] [place], [place] [address]DrGlory Weber Potassium [Moles/Vol] 4.0 mmol/L Normal 3.5-5.1 [facility] Comment on above: Performed By: #### B MP ####[facility] [address] [place] [id number] Weber Sodium [Moles/Vol] 142 mmol/L Normal 136-145 [facility] Comment on above: Performed By: #### B MP ####[facility] [address] [address]Dr. Cuba Weber Urea nitrogen [Mass/Vol] 9.0 mg/dL Normal 7.0-18.0 [facility] Comment on above: Performed By: #### B MP ####[facility] [address] [address]DrGlory Weber Urea nitrogen/Creatinine [Mass ratio] 9.6 mg/mg Normal [facility] Comment on above: Performed By: #### B MP ####[facility] [address] [address]Dr. Cuba Weber PROTIMEon 04-09-2022 INR Coag (PPP) [Relative time] 0.99 {INR} Normal [facility] Comment on above: Performed By: #### P TT, PT #### [facility] Laboratory [address] [place] [address] Dr. Cuba Weber INR GUIDELINES SEE BELOW Normal [facility] Comment on above: Result Comment: GRAZYNA RED INR: 2.0 - 3.0 CONDITIONS NOT LISTED BELOW 2.5 - 3.5 FOR PROSTHETIC HEART VALVE REPLACEMENT 2.5 - 3.5 RECURRENT THROMBOSIS Performed By: #### P TT, PT #### [facility] [address] [address] [address] Cuba Weber PT Coag (PPP) [Time] 10.5 s Normal 9.0-11.6 [facility] Comment on above: Performed By: #### P TT, PT #### [facility] [address] [address] [address] Cuba Weber PTTon 04-09-2022 aPTT Coag (Bld) [Time] 29.2 s Normal 22.3-36.2 Th e [facility] Comment on above: Performed By: #### P TT, PT #### [facility] [address] [address] [address] Cuba Weber XR KUB 1 VIEWon [...] by: MINERVA REN Date: 2022-04-09 16:33 Normal [facility] Consent for Procedure/Surger yon 04-07-2022 Consent for Procedure/Surgery [id number] #[id number]:127 Normal [facility] Physician Referralon 023 Physician Referral [id number] #1.00CD:127 Normal [facility] Ambulatory Visit Summaryon 0 04-05-2022 Ambulatory Visit Summary LATELY FEDE RUFF :1955 Visit Date:04/05/2022 Ambulatory Visit Instructions Your Diagnosis Ureterovesical junction (UVJ) obstruction UTI (urinary tract infection) Ureteral stone Tests Performed XR Abdomen 1 View -- Results Pending -- Please visit your patient portal for your results or contact your primary care physician. Your Care Team Attending Physician - MARCO A BUI, William Mondragon Primary Care Physician - CHUCKIE BUI, MINERVA Aggarwal Referring Physician - Damien BUI, Robbi Sparrow This Is Your Medications List cephalexin (Keflex [...] Appointments Follow Up with MARCO A BUI, ASHWINI Alexander When: Comments: sched laser litho and KUB Where: [facility] [address] , [place] [address] [phone] Medications What How Much When Instructions New cephalexin (Keflex 500 mg Cap) 1 Capsules By Mouth Every 12 hours Pickup at [facility]/pharmacy #[id number] Unchanged atorvastatin (atorvastatin 10 mg Tab) [...] physician if questions or concerns Pharmacy Information [facility]/pharmacy #[id number]: [address], [place] [phone] Allergies No Known Allergies Problems Ongoing - [...] as: ? (more content not included)... Normal [facility] Patient Educationon 04-05-19 23 Patient Education Obstetrics and Gynecology Urinary Tract [...] these instructions at home: Medicines ? Take nvjq-jqg-juseieg and prescription medicines only as told by [...] 08/30/2008 Document Revised: 03/01/2019 Document Reviewed: 09/21/2018 [employer] Patient Education ? 2020 [employer]. Urology Kidney Stones Kidney stones are rock-like [...] kidney o (more content not included)... Normal [facility] Creatinine and Glomerular fi ltration rate.predicted panel (S/P/Bld)Ordered By: Robbi Quezada on 02-22-2022 Creatinine [Mass/Vol] 0.83 mg/dL 0.64-1.27 [facility] Estimated glomerular filtrat ion rate (GFR) non- AmericanOrdered By: Robbi Quezada on 02-22-2022 GFR/1.73 sq M.predicted among non-blacks MDRD (S/P/Bld) [Vol rate/Area] > 60 mL/Min [facility] No Panel InformationOrdered By: Robbi Quezada on 02-22-2022 Estimated GFR () > 60 mL/Min [facility] Comment on above: GFR estimated refere nce range: According to KDOQI guidelines, <60 ml/min/1.73m2 is sufficient to diagnose a patient with chronic kidney disease. Pharmacy Creatinine Clearance (Chem N/A [facility] Serum or plasma urea nitroge n measurement (mass/volume)Ordered By: Robbi Quezada on 02-22-2022 Urea nitrogen [Mass/Vol] 12 mg/dL 12-18 [facility] HEMOGRAM AND PLATELon 2021 Hematocrit (Bld) [Volume fraction] 44.5 % Normal 42.0-54.0 [facility] Comment on above: Performed By: #### H H ####[facility] [address] [address]DrGlory Weber Hemoglobin (Bld) [Mass/Vol] 14.8 g/dL Normal 14.0-18.0 [facility] Comment on above: Performed By: #### H H ####[facility] [address] [address]DrGlory Weber MCH (RBC) [Entitic mass] 29.0 pg Normal 25.9-34.0 [facility] Comment on above: Performed By: #### H H ####[facility] [address] [address]DrGlory Weber MCHC (RBC) [Mass/Vol] 33.3 g/dL Normal 29.9-35.2 [facility] Comment on above: Performed By: #### H H ####[facility] [address] [address]Dr. Cuba Weber MCV (RBC) [Entitic vol] 87.3 fL Normal 80.0-94.0 [facility] Comment on above: Performed By: #### H H ####[facility] [address] [address] [id number]. Cuba Weber PLT 253 103/ul Normal 150-450 [facility] Comment on above: Performed By: #### H H ####[facility] [address] [address]Dr. Cuba Weber RBC 5.10 106/ul Normal 4.70-6.10 [facility] Comment on above: Performed By: #### H H ####[facility] [address] [address]DrGlory Weber WBC 4.0 103/ul Normal 4.0-11.0 [facility] Comment on above: Performed By: #### H H ####[facility] [address] [address]DrGlory Weber LIPID PROFILEon 02-01-2022 CHOL-HDL RATIO NORM SEE BELOW Normal [facility] Comment on above: Result Comment: 3.3 - 4.4 LOW RISK 4.4 - 7.1 AVERAGE RISK 7.1 - 11.0 MODERATE RISK >11.0 HIGH RISK Performed By: #### L IPID, CMP #### [facility] [address] [address] [address] Cuba Weber Cholesterol [Mass/Vol] 140 mg/dL Normal <=200 Th [facility] Comment on above: Performed By: #### L IPID, CMP #### [facility] [address] [address] [address] Cuba Weber Cholesterol in HDL [Mass/Vol] 38 mg/dL Critically low 40-60 [facility] Comment on above: Performed By: #### L IPID, CMP #### [facility] [address] [address] [address] Cuba Weber Cholesterol in LDL [Mass/Vol] 92.4 mg/dL Normal [facility] Comment on above: Performed By: #### L IPID, CMP #### [facility] [address] [address] [address] Cuba Weber Cholesterol.total/Eboni sterol in HDL [Mass ratio] 3.7 {ratio} Normal [facility] Comment on above: Performed By: #### L IPID, CMP #### [facility] [address] [address] [address] Cuba Weber HDL NORMAL > or = 60 mg/dl - LOW CARDIOVASCULAR RISK <40 mg/dl - HIGH CARDIOVASCULAR RISK Normal [facility] Comment on above: Performed By: #### L IPID, CMP #### [facility] [address] [address] [address] Cuba Weber LDL CALC NORMAL SEE BELOW Normal [facility] Comment on above: Result Comment: <100 mg/dl OPTIMAL 100 - 129 mg/dl NEAR OR ABOVE OPTIMAL 130 - 159 mg/dl BORDERLINE HIGH 160 - 189 mg/dl HIGH >190 mg/dl VERY HIGH Performed By: #### L IPID, CMP #### [facility] [address] [address] [address] Cuba Weber Triglyceride [Mass/Vol] 48 mg/dL Normal <=150 T [facility] Comment on above: Performed By: #### L IPID, CMP #### [facility] [address] [address] [address] Cuba Weber VLDL CALC 9.6 mg/dL Normal [facility] Comment on above: Performed By: #### L IPID, CMP #### [facility] [address] [address] [address] Cuba Weber PROF 14(COMP METB)on 022 Albumin [Mass/Vol] 3.7 g/dL Normal 3.4-5.0 [facility] Comment on above: Performed By: #### L IPID, CMP #### [facility] [address] [address] [address] Cuba Weber Albumin/Globulin [Mass ratio] 0.9 {ratio} Normal [facility] Comment on above: Performed By: #### L IPID, CMP #### [facility] [address] [address] [address] Cuba Weber ALP [Catalytic activity/Vol] 92 U/L Normal 46-116 [facility] Comment on above: Performed By: #### L IPID, CMP #### [facility] [address] [address] [address] Cuba Weber ALT [Catalytic activity/Vol] 10 U/L Critically low 16-63 [facility] Comment on above: Performed By: #### L IPID, CMP #### [facility] [address] [address] [address] Cuba Weber Anion gap [Moles/Vol] 7.4 mmol/L Normal [facility] Comment on above: Performed By: #### L IPID, CMP #### [facility] [address] [address] [address] Cuba Weber AST [Catalytic activity/Vol] 12 U/L Critically low 15-37 [facility] Comment on above: Performed By: #### L IPID, CMP #### [facility] [address] [address] [address] Cuba Weber Bilirubin [Mass/Vol] 0.5 mg/dL Normal 0.2-1.0 [facility] Comment on above: Performed By: #### L IPID, CMP #### [facility] [address] [address] [address] Cuba Weber Calcium [Mass/Vol] 9.3 mg/dL Normal 8.5-10.1 [facility] Comment on above: Performed By: #### L IPID, CMP #### [facility] [address] [address] [address] Cuba Weber Chloride [Moles/Vol] 105 mmol/L Normal 98-107 [facility] Comment on above: Performed By: #### L IPID, CMP #### [facility] [address] [address] [address] Cuba Weber CO2 [Moles/Vol] 27.8 mmol/L Normal 21.0-32.0 [facility] Comment on above: Performed By: #### L IPID, CMP #### [facility] [address] [address] [address] Cuba Weber Creatinine [Mass/Vol] 0.83 mg/dL Normal 0.70-1.30 [facility] Comment on above: Performed By: #### L IPID, CMP #### [facility] [address] [address] [address] Cuba Weber EGFR-AF URUGUAYAN >60 Normal >=60 [facility] Comment on above: Performed By: #### L IPID, CMP #### [facility] [address] [address] [address] Cuba Weber EGFR-NON AF URUGUAYAN >60 Normal >=60 [facility] Comment on above: Performed By: #### L IPID, CMP #### [facility] [address] [address] [address] Cuba Weber Globulin (S) [Mass/Vol] 4.2 g/dL Normal [facility] Comment on above: Performed By: #### L IPID, CMP #### [facility] [address] [address] [address] Cuba Weber Glucose [Mass/Vol] 80 mg/dL Normal 74-106 [facility] Comment on above: Performed By: #### L IPID, CMP #### [facility] [address] [address] [address] Cuba Weber Potassium [Moles/Vol] 4.2 mmol/L Normal 3.5-5.1 [facility] Comment on above: Performed By: #### L IPID, CMP #### [facility] [address] [address] [address] Cuba Weber Protein [Mass/Vol] 7.9 g/dL Normal 6.4-8.2 [facility] Comment on above: Performed By: #### L IPID, CMP #### [facility] [address] [address] [address] Cuba Weber Sodium [Moles/Vol] 136 mmol/L Normal 136-145 [facility] Comment on above: Performed By: #### L IPID, CMP #### [facility] [address] [address] [address] Cuba Weber Urea nitrogen [Mass/Vol] 15.0 mg/dL Normal 7.0-18.0 [facility] Comment on above: Performed By: #### L IPID, CMP #### [facility] [address] [address] [address] Cuba Weber Urea nitrogen/Creatinine [Mass ratio] 18.1 mg/mg Normal [facility] Comment on above: Performed By: #### L IPID, CMP #### [facility] [address] [address] [address] Cuba Weber CBC and Differentialon 10-12 Abs Baso 0.04 k/uL Normal <0.11 [facility] Abs [place] 0.81 k/uL Normal <0.87 [facility] Abs Neut 3.32 k/uL Normal 1.45-7.50 [facility] Absolute nRBC <0.01 [facility]0.01 [facility] WBC (Bld) 0.7 % Normal [facility] DTYPE Auto Diff Normal [facility] Eosinophils (Bld) [#/Vol] 0.13 10*3/uL Normal <0.46 [facility] Eosinophils/100 WBC (Bld) 2.4 % Normal [facility] Erythrocyte distribution width (RBC) [Ratio] 12.4 % Normal 11.5-15.0 [facility] Hematocrit (Bld) [Volume fraction] 36.7 % Low 39.0-51.0 [facility] Hemoglobin (Bld) [Mass/Vol] 11.9 g/dL Low 13.0-17.0 [facility] Lymphocytes (Bld) [#/Vol] 1.19 10*3/uL Normal 1.00-4.00 [facility] Lymphocytes/100 WBC (Bld) 21.7 % Normal [facility] MCH (RBC) [Entitic mass] 29.0 pG Normal 26.0-34.0 [facility] MCHC (RBC) [Mass/Vol] 32.4 g/dL Normal 30.5-36.0 [facility] MCV (RBC) [Entitic vol] 89.3 fL Normal 80.0-100.0 [facility] Monocytes/100 WBC (Bld) 14.8 % Normal [facility] Neutrophils/100 WBC (Bld) 60.4 % Normal [facility] NRBCs 0.0 /100 WBC Normal 0 [facility] Platelet mean volume (Bld) [Entitic vol] 9.7 fL Normal 9.0-12.7 [facility] Platelets (Bld) [#/Vol] 388 10*3/uL Normal 150-400 [facility] RBC (Bld) [#/Vol] 4.11 10*6/uL Low 4.20-6.00 [facility] WBC (Bld) [#/Vol] 5.49 10*3/uL Normal 3.70-11.[address] [facility] [address] CHEST W IVCON PEon 2019 CT CHEST W IVCON PE * * *Final Report* * * DATE OF EXAM: Oct 13 2019 12:23PM [facility] 0540 - CT CHEST W IVCON PE [...] No abnormality in the imaged upper abdomen. Elastic Cutter (topogram) images: Unremarkable. IMPRESSION: No CT evidence of pulmonary embolism. Mild atelectasis Manager Corporate Strategy: [facility] Transcribe Date/Time: Oct 13 2019 12:38P Dictated by : ERIKA DAVIS MD This examination was interpreted and the report reviewed and electronically signed by: ERIKA DAVIS MD on Oct 13 2019 12:43PM EST [id number] Normal [facility] Comp Metabolic Panelon 10-12 Albumin [Mass/Vol] 3.9 g/dL Normal 3.9-4.9 [facility] ALP [Catalytic activity/Vol] 62 U/L Normal 38-113 [facility] ALT [Catalytic activity/Vol] 14 U/L Normal 10-54 [facility] Anion gap [Moles/Vol] 10 mmol/L Normal 9-18 [facility] AST [Catalytic activity/Vol] 14 U/L Normal 14-40 [facility] Bilirubin [Mass/Vol] mg/dL Low 0.2-1.3 [facility] Calcium [Mass/Vol] 9.9 mg/dL Normal 8.5-10.2 [facility] Chloride [Moles/Vol] 101 mmol/L Normal 97-105 [facility] CO2 [Moles/Vol] 26 mmol/L Normal 22-30 [facility] Creatinine [Mass/Vol] 0.85 mg/dL Normal 0.73-1.22 [facility] eGFR- Amer. >60 Normal [facility] GFR/1.73 sq M predicted among non-blacks MDRD (S/P/Bld) [Vol rate/Area] mL/min/{1.73_m2} Normal [facility] Comment on above: Result Comment: eGFR (Estimated [...] GFR. Glucose [Mass/Vol] 120 mg/dL High 74-99 [facility] Comment on above: Result Comment: The [place] Diabetes Association (ADA) provides guidance for cutoff [...] Standards of Medical Care in Diabetes 2016, [place] [employer]. Diabetes Care. 2016.39(Suppl 1). Potassium [Moles/Vol] 4.2 mmol/L Normal 3.7-5.1 [facility] Protein [Mass/Vol] 6.9 g/dL Normal 6.3-8.0 [facility] Sodium [Moles/Vol] 137 mmol/L Normal 136-144 [facility] Urea nitrogen [Mass/Vol] 14 mg/dL Normal 9-24 [facility] ED NOTEon 10-13-2019 ED NOTE HNO ID: [id number] Author: Elzbieta (Rn) HANY Ayala Service: Nursing Author Type: Registered Nurse Type: ED Notes Filed: 10/13/2019 2:01 PM Note Text: [facility] [place] [facility] in stable condition, but AMA. Pt states that he understands that he is leaving AMA and accepts the implications of doing so. [facility] Report also given to [place] ambulance personal. [facility] ED NOTE HNO ID: [id number] Author: Kaykay Rivero RN Service: ? Author Type: Registered Nurse Type: ED Notes Filed: 10/13/2019 10:39 AM Note Text: Dr. Pérez at bedside to examine pt. [facility] ED NOTE HNO ID: [id number] Author: Kaykay Rivero RN Service: ? Author Type: Registered Nurse Type: ED Notes Filed: 10/13/2019 10:10 AM Note Text: Portable CXR being done [facility] ED NOTE HNO ID: [id number] Author: Kaykay Rivero RN Service: ? Author [...] in bed with siderails up x 2. [facility] ED NOTE HNO ID: [id number] Author: Kaykay Rivero RN Service: ? Author Type: Registered Nurse Type: ED Notes Filed: 10/13/2019 9:52 AM Note Text: Bed: ED-09 Expected date: 10/13/19 Expected time: 9:52 AM Means of arrival: [facility] FD Comments: AFD [facility] ED PROV NOTEon 10-13-2019 ED PROV NOTE HNO ID: [id number] Author: Shashi Pérez Service: Emergency Medicine Author [...] - Anemia - ARF (acute respiratory failure) ([facility]) - Central cord syndrome ([facility]) - Cognitive impairment - Depression - Dysphagia - Gait abnormality - Heart attack ([facility]) - Hypotension - Neurogenic bladder - Neurogenic bowel - 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 No pertinent surgical history. No [...] CT evidence of pulmonary embolism. Mild atelectasis Manager Corporate Strategy: [employer] Transcribe Date/Time: Oct 13 2019 12:38P [...] atelectasis although resolving infiltrate is also possible. Manager Corporate Strategy: [employer] Transcribe Date/Time: Oct 13 2019 10:30A [...] and management with Dr. Pérez. 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 My locke findings include: History is [...] 2:54 PM Shashi Pérez 10/13/19 1458 Normal [facility] Magnesiumon 10-13-2019 Magnesium [Mass/Vol] 1.7 mg/dL Normal 1.7-2.3 [facility] NT Pro BNPon 10-13-2019 PRO B Natr Peptide 52 pg/mL Normal <125 [facility] PROGRESSon 10-13-2019 PROGRESS HNO ID: [id number] Author: Samantha (Ct) NBA Azul Service: Radiology Author Type: Power Wood Sawyer Type: Progress Notes Filed: 10/13/2019 12:27 PM [...] 13, 2019 TIME: 12:26 PM PAGER/CONTACT #: [facility] PROGRESS HNO ID: [id number] Author: NBA Bose (Ct) Service: Radiology Author Type: Power Wood Sawyer Type: Progress Notes Filed: 10/13/2019 12:26 PM [...] NBA Bose October 13, 2019 12:26 PM [facility] PROGRESS HNO ID: [id number] Author: Pat Mijares (Rt) Service: Radiology Author Type: Power Wood Sawyer Type: Progress Notes Filed: 10/13/2019 10:19 AM [...] David COLLINS(R) October 13, 2019 10:18 AM [facility] Troponin Ton 10-13-2019 Troponin T.cardiac [Mass/Vol] ug/L Normal 0.000-0.029 [facility] XR CHEST 1V FRONTAL PORTon 0 10-13-2019 [...] atelectasis although resolving infiltrate is also possible. Manager Corporate Strategy: [employer] Transcribe Date/Time: Oct 13 2019 10:30A Dictated by : MILO SORTO MD This examination was interpreted and the report reviewed and electronically signed by: MILO SORTO MD on Oct 13 2019 10:31AM EST [id number] Normal [facility] EKG 12 Leadon 10-09-2019 Atrial Rate 57 BPM [employer], [employer] P [place] 76 degrees [place], [place] P-R Interval 170 ms [employer] [place] Q-T Interval 400 ms [facility] [place], [facility] QRS Duration 92 ms [facility] [place] QTc Calculation (Bazett) 389 ms [place], [place] R [place] 51 degrees [place] T [place] 45 degrees [place] Ventricular Rate 57 BPM [facility] [place] Sinus bradycardia with sinus arrhythmia Septal infarct , age undetermined Abnormal ECG No previous ECGs available [employer], [employer] [place], [employer] Incoming Ekg Results From [employer] - 10/09/2019 12:35 PM EDT Sinus bradycardia with sinus arrhythmia Septal infarct , age undetermined Abnormal ECG No previous ECGs available [place] POC Glucose Fingerstickon Glucose [Mass/Vol] 115 mg/dL High 75 - 110 mg/dL [place] Interpretation and review of laboratory results Abnormal [place] Glucose [Mass/Vol] 132 mg/dL High 75 - 110 mg/dL [place] Interpretation and review of laboratory results Abnormal [place] Glucose [Mass/Vol] 120 mg/dL High 75 - 110 mg/dL [place] Interpretation and review of laboratory results Abnormal [place] BASIC METABOLIC PANELon Anion gap [Moles/Vol] 10 mmol/L 9 - 17 mmol/L [place] Bun/Cre Ratio NOT REPORTED [place] Calcium [Mass/Vol] 8.4 mg/dL Low 8.6 - 10. 4 mg/dL [place] Chloride [Moles/Vol] 103 mmol/L 98 - 10 7 mmol/L [place] CO2 [Moles/Vol] 28 mmol/L 20 - 31 mmol/L [place] Creatinine [Mass/Vol] 0.67 mg/dL Low 0.7 - 1.2 mg/dL [place] GFR >60 >60 mL/min [place] GFR Non- >60 >60 mL/min [place] GFR/1.73 sq M predicted among non-blacks MDRD (S/P/Bld) [Vol rate/Area] [place] Comment on above: Average GFR for 60-6 9 years old: 85 mL/min/1.73sq m Chronic Kidney Disease: <60 mL/min/1.73sq m Kidney failure: <15 mL/min/1.73sq m eGFR calculated using average adult body mass. Additional eGFR calculator available at: http://www.[employer]/multiple_crcl_2012.htm GFR/1.73 sq M predicted among non-blacks MDRD (S/P/Bld) [Vol rate/Area] NOT REPORTED [place] Glucose [Mass/Vol] 121 mg/dL High 70 - 99 mg/dL [place] Interpretation and review of laboratory results Abnormal [place] Potassium [Moles/Vol] 4.1 mmol/L 3.7 - 5.3 mmol/L [place] Sodium [Moles/Vol] 141 mmol/L 135 - 144 mmol/L [place] Urea nitrogen [Mass/Vol] 10 mg/dL 8 - 23 mg/dL [place] Basic Metabolic Profon 09-27 (cont.) Normal [facility] Comment on above: Result Comment: Aver age GFR for 60-69 years old: 85 mL/min/1.73sq m Chronic Kidney Disease: <60 mL/min/1.73sq m Kidney failure: <15 mL/min/1.73sq m eGFR calculated using average adult body mass. Additional eGFR calculator available at: http://www.[employer]oquo/multiple_crcl_2012.htm Performed By: #### T YS #### [facility] [address] [place] [id number] [employer]ord[employer] Tuner: Tre Ferrell MD Anion gap [Moles/Vol] 10 mmol/L Normal 9-17 [facility] Comment on above: Performed By: #### T YS #### [facility] [address] [place] [address] [employer] Tuner: Tre Ferrell MD Calcium [Mass/Vol] 8.4 mg/dL Low 8.6-10.4 [facility] Comment on above: Performed By: #### T YS #### [facility] [address] [place] [address] [employer] Tuner: Tre Ferrell MD Chloride [Moles/Vol] 103 mmol/L Normal 98-107 [facility] Comment on above: Performed By: #### T YS #### [facility] [address] [place] [address] [employer] Tuner: Tre Ferrell MD CO2 [Moles/Vol] 28 mmol/L Normal 20-31 [facility] Comment on above: Performed By: #### T YS #### [address] [address] [employer] Tuner: Tre Ferrell MD Creatinine [Mass/Vol] 0.67 mg/dL Low 0.70-1.20 [facility] Comment on above: Performed By: #### T YS #### [address] [address] [employer] Tuner: Tre Ferrell MD GFR, Amer >60 Normal >60 [facility] Comment on above: Performed By: #### T YS #### [address] [address] [employer] Tuner: Tre Ferrell MD GFR,non Amer >60 Normal >60 [facility] Comment on above: Performed By: #### T YS #### [address] [address] [employer] Tuner: Tre Ferrell MD Glucose [Mass/Vol] 121 mg/dL High 70-99 [facility] Comment on above: Performed By: #### T YS #### [address] [address] [employer] Tuner: Tre Ferrell MD Potassium [Moles/Vol] 4.1 mmol/L Normal 3.7-5.3 [facility] Comment on above: Performed By: #### T YS #### [address] [address] [employer] Tuner: Tre Ferrell MD Sodium [Moles/Vol] 141 mmol/L Normal 135-144 [facility] Comment on above: Performed By: #### T YS #### [address] [address] Accordion Tuner: Tre Ferrell MD Urea nitrogen [Mass/Vol] 10 mg/dL Normal 8-23 [facility] Comment on above: Performed By: #### T YS #### [address] [address] [employer]ordion Tuner: Tre Ferrell MD BUN/CRE Ratio NOT REPORTED Normal 9- [facility] Comment on above: Performed By: #### T YS #### [address] [address] Accordion Tuner: Tre Ferrell MD Staging: NOT REPORTED Normal [facility] Comment on above: Performed By: #### T YS #### [address] [address] Acc[employer] Tuner: Tre Ferrell MD CBCon 09-28-2019 Erythrocyte distribution width (RBC) [Ratio] 12.7 % Normal 11.8-14.4 [facility] Comment on above: Performed By: #### T YS #### [address] [address] Accordion Tuner: Tre Ferrell MD Hematocrit (Bld) [Volume fraction] 32.0 % Low 40.7-50.3 [facility] Comment on above: Performed By: #### T YS #### [address] [address] Accordion Tuner: Tre Ferrell MD Hemoglobin (Bld) [Mass/Vol] 10.2 g/dL Low 13.0-17.0 [facility] Comment on above: Performed By: #### T YS #### [address] [address] Accordion Tuner: Tre Ferrell MD MCH (RBC) [Entitic mass] 29.7 pg Normal 25.2-33.5 [facility] Comment on above: Performed By: #### T YS #### [address] [address] Accordion Tuner: Tre Ferrell MD MCHC (RBC) [Mass/Vol] 31.9 g/dL Normal 28.4-34.8 [facility] Comment on above: Performed By: #### T YS #### [address] [address] Accordion Tuner: Tre Ferrell MD MCV (RBC) [Entitic vol] 93.0 fL Normal 82.6-102.9 [facility] Comment on above: Performed By: #### T YS #### [address] [address] Accordion Tuner: Tre Ferrell MD NRBC Automated 0.0 per [address] [facility] Comment on above: Performed By: #### T YS #### [address] [address] Accordion Tuner: Tre Ferrell MD Platelet mean volume (Bld) [Entitic vol] 10.4 fL Normal 8.1-13.5 [facility] Comment on above: Performed By: #### T YS #### [address] [address] [employer]ordion Tuner: Tre Ferrell MD Platelets (Bld) [#/Vol] 173 10*3/uL Normal 138-453 [facility] Comment on above: Performed By: #### T YS #### [address] [address] Accordion Tuner: Tre Ferrell MD RBC (Bld) [#/Vol] 3.44 10*6/uL Low 4.21-5.77 [facility] Comment on above: Performed By: #### T YS #### [address] [address] Accordion Tuner: Tre Ferrell MD WBC (Bld) [#/Vol] 7.2 10*3/uL Normal 3.5-11.3 [facility] Comment on above: Performed By: #### T YS #### [employer] [facility] [place] [address] Accordion Tuner: Tre Ferrell MD Erythrocyte distribution width (RBC) [Ratio] 12.7 % 11.8 - 14.4 % [place] Hematocrit (Bld) [Volume fraction] 32.0 % Low 40.7 - 50.3 % [place] Hemoglobin (Bld) [Mass/Vol] 10.2 g/dL Low 13 - 17 g/dL [place] Interpretation and review of laboratory results Abnormal [place] MCH (RBC) [Entitic mass] 29.7 pg 25.2 - 33.5 pg [place] MCHC (RBC) [Mass/Vol] 31.9 g/dL 28.4 - 34.8 g/dL [place] MCV (RBC) [Entitic vol] 93.0 fL 82.6 - 102.9 fL [place] Platelet mean volume (Bld) [Entitic vol] 10.4 fL 8.1 - 13.5 fL [place] Platelets (Bld) [#/Vol] 173 10*3/uL [place] RBC (Bld) [#/Vol] 3.44 10*6/uL Low 4.21 - 5.7 7 m/uL [place] WBC (Bld) [#/Vol] 7.2 10*3/uL [place] WBC (Bld) [#/Vol] 0.0 10*3/uL 0.0 per 10 0 WBC [place] MAGNESIUMon 09-28-2019 Magnesium [Mass/Vol] 1.9 mg/dL 1.6 - 2 .6 mg/dL [place] Magnesiumon 09-28-2019 Magnesium [Mass/Vol] 1.9 mg/dL Normal 1.6-2.6 [facility] Comment on above: Performed By: #### T YS #### [employer] [address] [place] [id number] Acc[employer] Tuner: Tre Ferrell MD PHOSPHORUSon 09-28-2019 Phosphate [Mass/Vol] 3.8 mg/dL 2.5 - 4 .5 mg/dL [place] POC Glucose Fingerstickon Glucose [Mass/Vol] 111 mg/dL High 75 - 110 mg/dL [place] Interpretation and review of laboratory results Abnormal [place] Glucose [Mass/Vol] 143 mg/dL High 75 - 110 mg/dL [place] Interpretation and review of laboratory results Abnormal [place] Glucose [Mass/Vol] 141 mg/dL High 75 - 110 mg/dL [place] Interpretation and review of laboratory results Abnormal [place] Glucose [Mass/Vol] 106 mg/dL 75 - 110 mg/dL [place] PROTIME-INRon 09-28-2019 INR Coag (PPP) [Relative time] 0.9 {INR} [place] Comment on above: Therapeutic Range: Moderate Anticoagulant Intensity: INR = 2.0-3.0 High Anticoagulant Intensity: INR = 2.5-3.5 PT Coag (PPP) [Time] 9.8 s [place] PTon 09-28-2019 INR Coag (PPP) [Relative time] 0.9 {INR} Normal [facility] Comment on above: Result Comment: Therapeutic Range: Moderate Anticoagulant Intensity: INR = 2.0-3.0 High Anticoagulant Intensity: INR = 2.5-3.5 Performed By: #### T YS #### [employer] [facility] [place], [place] [phone] Accordion Tuner: Tre Ferrell MD PT Coag (PPP) [Time] 9.8 s Normal 9.0-12.0 [facility] Comment on above: Performed By: #### T YS #### [employer] [address] [place], [place] [phone] Accordion Tuner: Tre Ferrell MD Phosphorus, Inorg.on 020 Phosphorus, Inorg. 3.8 mg/dL Normal 2.5-4.5 [facility] Comment on above: Performed By: #### T YS #### [address] [address] Accordion Tuner: Tre Ferrell MD Basic Metab w/rfx MGon 09-26 (cont.) Normal [facility] Comment on above: Result Comment: Aver age GFR for 60-69 years old: 85 mL/min/1.73sq m Chronic Kidney Disease: <60 mL/min/1.73sq m Kidney failure: <15 mL/min/1.73sq m eGFR calculated using average adult body mass. Additional eGFR calculator available at: http://www.emoquo/multiple_crcl_2012.htm Performed By: #### T YS #### [place] [address] Accord[employer] Tuner: Tre Ferrell MD Anion gap [Moles/Vol] 9 mmol/L Normal 9-17 [facility] Comment on above: Performed By: #### T YS #### [address] [address] Accordion Tuner: Tre Ferrell MD Calcium [Mass/Vol] 8.1 mg/dL Low 8.6-10.4 [facility] Comment on above: Performed By: #### T YS #### [facility] [address] [place] [address] Accordion Tuner: Tre Ferrell MD Chloride [Moles/Vol] 106 mmol/L Normal 98-107 [facility] Comment on above: Performed By: #### T YS #### [facility] [address] [place] [address] Accordion Tuner: Tre Ferrell MD CO2 [Moles/Vol] 27 mmol/L Normal 20-31 [facility] Comment on above: Performed By: #### T YS #### [address] [address] Accordion Tuner: Tre Ferrell MD Creatinine [Mass/Vol] 0.63 mg/dL Low 0.70-1.20 [facility] Comment on above: Performed By: #### T YS #### [address] [address] Accordion Tuner: Tre Ferrell MD GFR, Amer >60 Normal >60 [facility] Comment on above: Performed By: #### T YS #### [address] [address] Accordion Tuner: Tre Ferrell MD GFR,non Amer >60 Normal >60 [facility] Comment on above: Performed By: #### T YS #### [address] [address] Accordion Tuner: Tre Ferrell MD Glucose [Mass/Vol] 108 mg/dL High 70-99 [facility] Comment on above: Performed By: #### T YS #### [address] [address] Accordion Tuner: Tre Ferrell MD Potassium [Moles/Vol] 3.9 mmol/L Normal 3.7-5.3 [facility] Comment on above: Performed By: #### T YS #### [address] [address] Accordion Tuner: Tre Ferrell MD Sodium [Moles/Vol] 142 mmol/L Normal 135-144 [facility] Comment on above: Performed By: #### T YS #### [address] [address] Acc[employer]ion Tuner: Tre Ferrell MD Urea nitrogen [Mass/Vol] 10 mg/dL Normal 8-23 [facility] Comment on above: Performed By: #### T YS #### [facility] [address] [place], [place] [phone] Accordion Tuner: Tre Ferrell MD BUN/CRE Ratio NOT REPORTED Normal 12-15 [facility] Comment on above: Performed By: #### T YS #### [facility] [address] [place], [place] [phone] Accordion Tuner: Tre Ferrell MD Staging: NOT REPORTED Normal [facility] Comment on above: Performed By: #### T YS #### [facility] [address] [place], [place] [phone] Accordion Tuner: Tre Ferrell MD Basic Metabolic Panel w/ Ref kylee to [facility] 09-27-2019 Anion gap [Moles/Vol] 9 mmol/L 9 - 17 mmol/L [place] Bun/Cre Ratio NOT REPORTED [place] Calcium [Mass/Vol] 8.1 mg/dL Low 8.6 - 10. 4 mg/dL [place] Chloride [Moles/Vol] 106 mmol/L 98 - 10 7 mmol/L [place] CO2 [Moles/Vol] 27 mmol/L 20 - 31 mmol/L [place] Creatinine [Mass/Vol] 0.63 mg/dL Low 0.7 - 1.2 mg/dL [place] GFR >60 >60 mL/min [place] GFR Non- >60 >60 mL/min [place] GFR/1.73 sq M predicted among non-blacks MDRD (S/P/Bld) [Vol rate/Area] NOT REPORTED [place] GFR/1.73 sq M predicted among non-blacks MDRD (S/P/Bld) [Vol rate/Area] [place] Comment on above: Average GFR for 60-6 9 years old: 85 mL/min/1.73sq m Chronic Kidney Disease: <60 mL/min/1.73sq m Kidney failure: <15 mL/min/1.73sq m eGFR calculated using average adult body mass. Additional eGFR calculator available at: http://www.[employer]/multiple_crcl_2012.htm Glucose [Mass/Vol] 108 mg/dL High 70 - 99 mg/dL [place] Interpretation and review of laboratory results Abnormal [place] Potassium [Moles/Vol] 3.9 mmol/L 3.7 - 5.3 mmol/L [place] Sodium [Moles/Vol] 142 mmol/L 135 - 144 mmol/L [place] Urea nitrogen [Mass/Vol] 10 mg/dL 8 - 23 mg/dL [place] CBC WITH AUTO DIFFERENTIALon 09-27-2019 Basophils (Bld) [#/Vol] 10*3/uL [place] Basophils/100 WBC (Bld) 0 % 0 - 2 % [place] Differential Type NOT REPORTED [place] Eosinophils (Bld) [#/Vol] 0.15 10*3/uL [place] Eosinophils/100 WBC (Bld) 2 % 1 - 4 % [place] Erythrocyte distribution width (RBC) [Ratio] 13.1 % 11.8 - 14.4 % [place] Hematocrit (Bld) [Volume fraction] 30.9 % Low 40.7 - 50.3 % [place] Hemoglobin (Bld) [Mass/Vol] 9.7 g/dL Low 13 - 17 g/dL [place] Immature granulocytes (Bld) [#/Vol] 0 % 0 [place] Immature granulocytes (Bld) [#/Vol] 0.03 10*3/uL [place] Interpretation and review of laboratory results Abnormal [place] Lymphocytes (Bld) [#/Vol] 1.52 10*3/uL [place] Lymphocytes/100 WBC (Bld) 16 % Low 24 - 43 % [place] MCH (RBC) [Entitic mass] 29.0 pg 25.2 - 33.5 pg [place] MCHC (RBC) [Mass/Vol] 31.4 g/dL 28.4 - 34.8 g/dL [place] MCV (RBC) [Entitic vol] 92.5 fL 82.6 - 102.9 fL [place] Monocytes (Bld) [#/Vol] 0.93 10*3/uL [place] Monocytes/100 WBC (Bld) 10 % 3 - 12 % [place] Platelet mean volume (Bld) [Entitic vol] 10.4 fL 8.1 - 13.5 fL [place] Platelets (Bld) [#/Vol] 144 10*3/uL [place] Platelets (Bld) [#/Vol] NOT REPORTED [place] RBC (Bld) [#/Vol] 3.34 10*6/uL Low 4.21 - 5.7 7 m/uL [place] RBC morphology finding Nom (Bld) NOT REPORTED [place] Segmented neutrophils/100 WBC (Bld) 72 % High 36 - 65 % [place] Segs Absolute 6.64 [place] WBC (Bld) [#/Vol] 0.0 10*3/uL 0.0 per 10 0 WBC [place] WBC (Bld) [#/Vol] 9.3 10*3/uL [place] WBC Morphology NOT REPORTED [place] CBC with Diffon 09-27-2019 Abs. Basophil <0.03 Normal 0.00-0.20 [facility] Comment on above: Performed By: #### T YS #### [facility] [address] [place] [phone] Accordion Tuner: Tre Ferrell MD Abs.Imm.Granulocyte 0.03 k/uL Normal 0.00-0.30 [facility] Comment on above: Performed By: #### T YS #### [facility] [address] [place] [phone] Accordion Tuner: Tre Ferrell MD Abs.Neutrophil (Seg) 6.64 k/uL Normal 1.50-8.10 [facility] Comment on above: Performed By: #### T YS #### [address] [address] Accordion Tuner: Tre Ferrell MD Basophils/100 WBC (Bld) 0 % Normal 0-2 [facility] Comment on above: Performed By: #### T YS #### [address] [address] Accordion Tuner: Tre Ferrell MD Eosinophils (Bld) [#/Vol] 0.15 10*3/uL Normal 0.00-0.44 [facility] Comment on above: Performed By: #### T YS #### [address] [address] Accordion Tuner: Tre Ferrell MD Eosinophils/100 WBC (Bld) 2 % Normal 1-4 [facility] Comment on above: Performed By: #### T YS #### [address] [address] Accordion Tuner: Tre Ferrell MD Erythrocyte distribution width (RBC) [Ratio] 13.1 % Normal 11.8-14.4 [facility] Comment on above: Performed By: #### T YS #### [address] [address] Accordion Tuner: Tre Ferrell MD Hematocrit (Bld) [Volume fraction] 30.9 % Low 40.7-50.3 [facility] Comment on above: Performed By: #### T YS #### [address] [address] Accordion Tuner: Tre Ferrell MD Hemoglobin (Bld) [Mass/Vol] 9.7 g/dL Low 13.0-17.0 [facility] Comment on above: Performed By: #### T YS #### [employer] [address] Accordion Tuner: Tre Ferrell MD Immature granulocytes (Bld) [#/Vol] 0 % Normal 0 [facility] Comment on above: Performed By: #### T YS #### [address] [address] Accordion Tuner: Tre Ferrell MD Lymphocytes (Bld) [#/Vol] 1.52 10*3/uL Normal 1.10-3.70 [facility] Comment on above: Performed By: #### T YS #### [address] [address] Accordion Tuner: Tre Ferrell MD Lymphocytes/100 WBC (Bld) 16 % Low 24-43 [facility] Comment on above: Performed By: #### T YS #### [address] [address] Accordion Tuner: Tre Ferrell MD MCH (RBC) [Entitic mass] 29.0 pg Normal 25.2-33.5 [facility] Comment on above: Performed By: #### T YS #### [address] [address] Accordion Tuner: Tre Ferrell MD MCHC (RBC) [Mass/Vol] 31.4 g/dL Normal 28.4-34.8 [facility] Comment on above: Performed By: #### T YS #### [address] [address] Accordion Tuner: Tre Ferrell MD MCV (RBC) [Entitic vol] 92.5 fL Normal 82.6-102.9 [facility] Comment on above: Performed By: #### T YS #### [address] [address] Accordion Tuner: Tre Ferrell MD Monocytes (Bld) [#/Vol] 0.93 10*3/uL Normal 0.10-1.20 [facility] Comment on above: Performed By: #### T YS #### [address] [address] Accordion Tuner: Tre Ferrell MD Monocytes/100 WBC (Bld) 10 % Normal 3-12 [facility] Comment on above: Performed By: #### T YS #### [address] [address] Accordion Tuner: Tre Ferrell MD Neutrophil (Seg) 72 % High 36-65 [facility] Comment on above: Performed By: #### T YS #### [address] [address] Accordion Tuner: Tre Ferrell MD NRBC Automated 0.0 per [address] [facility] Comment on above: Performed By: #### T YS #### [address] [address] Accordion Tuner: Tre Ferrell MD Platelet mean volume (Bld) [Entitic vol] 10.4 fL Normal 8.1-13.5 [facility] Comment on above: Performed By: #### T YS #### [address] [address] Accordion Tuner: Tre Ferrell MD Platelets (Bld) [#/Vol] 144 10*3/uL Normal 138-453 [facility] Comment on above: Performed By: #### T YS #### [address] [address] Accordion Tuner: Tre Ferrell MD RBC (Bld) [#/Vol] 3.34 10*6/uL Low 4.21-5.77 [facility] Comment on above: Performed By: #### T YS #### [address] [address] Accordion Tuner: Tre Ferrell MD WBC (Bld) [#/Vol] 9.3 10*3/uL Normal 3.5-11.3 [facility] Comment on above: Performed By: #### T YS #### [address] [address] Accordion Tuner: Tre Ferrell MD Auto Diff Performed NOT REPORTED Normal [facility] Comment on above: Performed By: #### T YS #### [address] [address] Accordion Tuner: Tre Ferrell MD Platelets (Bld) [#/Vol] NOT REPORTED Normal [facility] Comment on above: Performed By: #### T YS #### [address] [address] Accordion Tuner: Tre Ferrell MD RBC morphology finding Nom (Bld) NOT REPORTED Normal [facility] Comment on above: Performed By: #### T YS #### [address] [address] Accordion Tuner: Tre Ferrell MD WBC Morphology NOT REPORTED Normal [facility] Comment on above: Performed By: #### T YS #### [address] [address] Accordion Tuner: Tre Ferrell MD POC Glucose Fingerstickon Glucose [Mass/Vol] 151 mg/dL High 75 - 110 mg/dL [place] Interpretation and review of laboratory results Abnormal [place] Glucose [Mass/Vol] 93 mg/dL 75 - 110 mg/dL [place] XR CHEST PORTABLEon 09-27-19 20 XR [...] Karan Palomo MD 09/27/[address] [facility] Interval extubation. Enteric tube stable. Elevation right hemidiaphragm with some opacity medial right base; consider atelectasis; aspiration/pneumonia should also be considered. [place] EXAMINATION: ONE XRAY VIEW OF THE [...] large pleural effusion or pneumothorax. Bones unchanged. [place] Samm, [employer] Incoming Radiant Results From [employer] - 09/27/2019 8:29 AM EDT EXAMINATION: ONE XRAY VIEW OF THE CHEST 09/27/2019 7:18 am COMPARISON: AP chest from 09/26/2019 HISTORY: ORDERING SYSTEM PROVIDED HISTORY: intubated TECHNOLOGIST PROVIDED HISTORY: intubated Reason for Exam: intubated Postop cervical fusion FINDINGS: [place] and cervical hardware again demonstrated; ETT has [...] consider atelectasis; aspiration/pneumonia should also be considered. [place] Arterial Blood Gas, POCon Mino Test NOT REPORTED [place], [place] aPTT Coag (Bld) [Time] NOT REPORTED [place] FIO2 30.0 [place] Mode NOT REPORTED [place], [place] Negative Base Excess, Art NOT REPORTED [place] O2 Device/Flow/% Adult Ventilator Me [place] Oxygen saturation in Blood 97 % 94 - 98 % [place] POC HCO3 31.2 mmol/L High 21 - 28 mmol/L [place] POC pCO2 49.1 High [place] POC pCO2 Temp NOT REPORTED mm Hg [place] POC pH 7.411 [place] POC pH Temp NOT REPORTED [place]OC PO2 88.2 [place] POC pO2 Temp NOT REPORTED mm Hg [place], [place] Positive Base Excess, Art 6 High [place] Sample Site Arterial Line [place] TCO2 (calc), Art 33 mmol/L High 22 - 29 mmol/L [place] Mino Test NOT REPORTED [place], [place] aPTT Coag (Bld) [Time] NOT REPORTED [place] FIO2 30.0 [place] Mode NOT REPORTED [place] Negative Base Excess, Art NOT REPORTED [place] O2 Device/Flow/% Adult Ventilator [place] Oxygen saturation in Blood 98 % 94 - 98 % [place] POC HCO3 29.8 mmol/L High 21 - 28 mmol/L [place] POC pCO2 46.0 [place] POC pCO2 Temp NOT REPORTED mm Hg [place] POC pH 7.420 [place] POC pH Temp NOT REPORTED [place] POC PO2 112.3 High [place] POC pO2 Temp NOT REPORTED mm Hg [place], [place] Positive Base Excess, Art 5 High [place] Sample Site Arterial Line [place] TCO2 (calc), Art 31 mmol/L High 22 - 29 mmol/L [place] Basic Metab w/rfx MGon 09-25 (cont.) Normal [facility] Comment on above: Result Comment: Aver age GFR for 60-69 years old: 85 mL/min/1.73sq m Chronic Kidney Disease: <60 mL/min/1.73sq m Kidney failure: <15 mL/min/1.73sq m eGFR calculated using average adult body mass. Additional eGFR calculator available at: http://www.emoquo/multiple_crcl_2012.htm Performed By: #### E RTPF #### [address] [address] Accordion Tuner: Tre Ferrell MD Anion gap [Moles/Vol] 9 mmol/L Normal 9-17 [facility] Comment on above: Performed By: #### E RTPF #### [address] [address] Accordion Tuner: Tre Ferrell MD Calcium [Mass/Vol] 8.2 mg/dL Low 8.6-10.4 [facility] Comment on above: Performed By: #### E RTPF #### [facility] [address] [place] [address] Accordion Tuner: Tre Ferrell MD Chloride [Moles/Vol] 103 mmol/L Normal 98-107 [facility] Comment on above: Performed By: #### E RTPF #### [facility] [address] [place] [address] Accordion Tuner: Tre Ferrell MD CO2 [Moles/Vol] 26 mmol/L Normal 20-31 [facility] Comment on above: Performed By: #### E RTPF #### [address] [address] Accordion Tuner: Tre Ferrell MD Creatinine [Mass/Vol] 0.60 mg/dL Low 0.70-1.20 [facility] Comment on above: Performed By: #### E RTPF #### [address] [address] Accordion Tuner: Tre Ferrell MD GFR, Amer >60 Normal >60 [facility] Comment on above: Performed By: #### E RTPF #### [address] [address] Accordion Tuner: Tre Ferrell MD GFR,non Amer >60 Normal >60 [facility] Comment on above: Performed By: #### E RTPF #### [address] [address] Accordion Tuner: Tre Ferrell MD Glucose [Mass/Vol] 158 mg/dL High 70-99 [facility] Comment on above: Performed By: #### E RTPF #### [address] [address] Accordion Tuner: Tre Ferrell MD Potassium [Moles/Vol] 4.0 mmol/L Normal 3.7-5.3 [facility] Comment on above: Performed By: #### E RTPF #### [address] [address] Accordion Tuner: Tre Ferrell MD Sodium [Moles/Vol] 138 mmol/L Normal 135-144 [facility] Comment on above: Performed By: #### E RTPF #### [address] [address] Accordion Tuner: Tre Ferrell MD Urea nitrogen [Mass/Vol] 10 mg/dL Normal 8-23 [facility] Comment on above: Performed By: #### E RTPF #### [facility] [address] [place], [place] [phone] Accordion Tuner: Tre Ferrell MD BUN/CRE Ratio NOT REPORTED Normal 9-20 [facility] Comment on above: Performed By: #### E RTPF #### [facility] [address] [place], [place] [phone] Accordion Tuner: Tre Ferrell MD Staging: NOT REPORTED Normal [facility] Comment on above: Performed By: #### E RTPF #### [facility] [address] [place], [place] [phone] Accordion Tuner: Tre Ferrell MD Basic Metabolic Panel w/ Ref kylee to on 09-26-2019 Anion gap [Moles/Vol] 9 mmol/L 9 - 17 mmol/L [place] Bun/Cre Ratio NOT REPORTED [place] Calcium [Mass/Vol] 8.2 mg/dL Low 8.6 - 10. 4 mg/dL [place] Chloride [Moles/Vol] 103 mmol/L 98 - 10 7 mmol/L [place] CO2 [Moles/Vol] 26 mmol/L 20 - 31 mmol/L [place] Creatinine [Mass/Vol] 0.6 mg/dL Low 0.7 - 1.2 mg/dL [place] GFR >60 >60 mL/min [place] GFR Non- >60 >60 mL/min [place] GFR/1.73 sq M predicted among non-blacks MDRD (S/P/Bld) [Vol rate/Area] [place] Comment on above: Average GFR for 60-6 9 years old: 85 mL/min/1.73sq m Chronic Kidney Disease: <60 mL/min/1.73sq m Kidney failure: <15 mL/min/1.73sq m eGFR calculated using average adult body mass. Additional eGFR calculator available at: http://www.[employer]/multiple_crcl_2012.htm GFR/1.73 sq M predicted among non-blacks MDRD (S/P/Bld) [Vol rate/Area] NOT REPORTED [place], [place] Glucose [Mass/Vol] 158 mg/dL High 70 - 99 mg/dL [place] Interpretation and review of laboratory results Abnormal [place] Potassium [Moles/Vol] 4.0 mmol/L 3.7 - 5.3 mmol/L [place] Sodium [Moles/Vol] 138 mmol/L 135 - 144 mmol/L [place] Urea nitrogen [Mass/Vol] 10 mg/dL 8 - 23 mg/dL [place] CBC WITH AUTO DIFFERENTIALon 09-26-2019 Basophils (Bld) [#/Vol] 0.03 10*3/uL [place] Basophils/100 WBC (Bld) 0 % 0 - 2 % M [place] Differential Type NOT REPORTED [place] Eosinophils (Bld) [#/Vol] 0.08 10*3/uL [place] Eosinophils/100 WBC (Bld) 1 % 1 - 4 % [place] Erythrocyte distribution width (RBC) [Ratio] 13.2 % 11.8 - 14.4 % [place] Hematocrit (Bld) [Volume fraction] 30.7 % Low 40.7 - 50.3 % [place] Hemoglobin (Bld) [Mass/Vol] 9.6 g/dL Low 13 - 17 g/dL [place] Immature granulocytes (Bld) [#/Vol] 0.04 10*3/uL [place] Immature granulocytes (Bld) [#/Vol] 1 % High 0 [place] Interpretation and review of laboratory results Abnormal [place] Lymphocytes (Bld) [#/Vol] 1.10 10*3/uL [place] Lymphocytes/100 WBC (Bld) 14 % Low 24 - 43 % [place] MCH (RBC) [Entitic mass] 29.2 pg 25.2 - 33.5 pg [place] MCHC (RBC) [Mass/Vol] 31.3 g/dL 28.4 - 34.8 g/dL [place] MCV (RBC) [Entitic vol] 93.3 fL 82.6 - 102.9 fL [place] Monocytes (Bld) [#/Vol] 0.81 10*3/uL [place] Monocytes/100 WBC (Bld) 10 % 3 - 12 % [place] Platelet mean volume (Bld) [Entitic vol] NOT REPORTED 8.1 - 13.5 fL [place] Platelets (Bld) [#/Vol] NOT REPORTED [place] Platelets (Bld) [#/Vol] See Reflexed IPF Result [place] RBC (Bld) [#/Vol] 3.29 10*6/uL Low 4.21 - 5.7 7 m/uL [place] RBC morphology finding Nom (Bld) NOT REPORTED [place] Segmented neutrophils/100 WBC (Bld) 74 % High 36 - 65 % [place] Segs Absolute 5.82 [place] WBC (Bld) [#/Vol] 7.9 10*3/uL [place] WBC (Bld) [#/Vol] 0.0 10*3/uL 0.0 per 10 0 WBC [place] WBC Morphology NOT REPORTED [place] CBC with Diffon 09-26-2019 Abs. Basophil 0.03 k/uL Normal 0.00-0.20 [facility] Comment on above: Performed By: #### E RTPF #### [facility] [address] [place] [address] Accordion Tuner: Tre Ferrell MD Abs.Imm.Granulocyte 0.04 k/uL Normal 0.00-0.30 [facility] Comment on above: Performed By: #### E RTPF #### [address] [address] Accordion Tuner: Tre Ferrell MD Abs.Neutrophil (Seg) 5.82 k/uL Normal 1.50-8.10 [facility] Comment on above: Performed By: #### E RTPF #### [address] [address] Accordion Tuner: Tre Ferrell MD Basophils/100 WBC (Bld) 0 % Normal 0-2 [facility] Comment on above: Performed By: #### E RTPF #### [address] [address] Accordion Tuner: Tre Ferrell MD Eosinophils (Bld) [#/Vol] 0.08 10*3/uL Normal 0.00-0.44 [facility] Comment on above: Performed By: #### E RTPF #### [address] [address] Accordion Tuner: Tre Ferrell MD Eosinophils/100 WBC (Bld) 1 % Normal 1-4 [facility] Comment on above: Performed By: #### E RTPF #### [address] [address] Accordion Tuner: Tre Ferrell MD Erythrocyte distribution width (RBC) [Ratio] 13.2 % Normal 11.8-14.4 [facility] Comment on above: Performed By: #### E RTPF #### [address] [address] Accordion Tuner: Tre Ferrell MD Hematocrit (Bld) [Volume fraction] 30.7 % Low 40.7-50.3 [facility] Comment on above: Performed By: #### E RTPF #### [address] [address] Accordion Tuner: Tre Ferrell MD Hemoglobin (Bld) [Mass/Vol] 9.6 g/dL Low 13.0-17.0 [facility] Comment on above: Performed By: #### E RTPF #### [address] [address] Accordion Tuner: Tre Ferrell MD Immature granulocytes (Bld) [#/Vol] 1 % High 0 [facility] Comment on above: Performed By: #### E RTPF #### [address] [address] Accordion Tuner: Tre Ferrell MD Lymphocytes (Bld) [#/Vol] 1.10 10*3/uL Normal 1.10-3.70 [facility] Comment on above: Performed By: #### E RTPF #### [address] [address] Accordion Tuner: Tre Ferrell MD Lymphocytes/100 WBC (Bld) 14 % Low 24-43 [facility] Comment on above: Performed By: #### E RTPF #### [address] [address] Accordion Tuner: Tre Ferrell MD MCH (RBC) [Entitic mass] 29.2 pg Normal 25.2-33.5 [facility] Comment on above: Performed By: #### E RTPF #### [address] [address] Accordion Tuner: Tre Ferrell MD MCHC (RBC) [Mass/Vol] 31.3 g/dL Normal 28.4-34.8 [facility] Comment on above: Performed By: #### E RTPF #### [address] [address] Accordion Tuner: Tre Ferrell MD MCV (RBC) [Entitic vol] 93.3 fL Normal 82.6-102.9 [facility] Comment on above: Performed By: #### E RTPF #### [address] [address] Accordion Tuner: Tre Ferrell MD Monocytes (Bld) [#/Vol] 0.81 10*3/uL Normal 0.10-1.20 [facility] Comment on above: Performed By: #### E RTPF #### [address] [address] Accordion Tuner: Tre Ferrell MD Monocytes/100 WBC (Bld) 10 % Normal 3-12 [facility] Comment on above: Performed By: #### E RTPF #### [address] [address] Accordion Tuner: Tre Ferrell MD Neutrophil (Seg) 74 % High 36-65 [facility] Comment on above: Performed By: #### E RTPF #### [address] [address] Accordion Tuner: Tre Ferrell MD NRBC Automated 0.0 per [address] [facility] Comment on above: Performed By: #### E RTPF #### [address] [address] Accordion Tuner: Tre Ferrell MD Platelets (Bld) [#/Vol] See Reflexed IPF Result Normal 138-453 [facility] Comment on above: Performed By: #### E RTPF #### [address] [address] Accordion Tuner: Tre Ferrell MD RBC (Bld) [#/Vol] 3.29 10*6/uL Low 4.21-5.77 [facility] Comment on above: Performed By: #### E RTPF #### [address] [address] Accordion Tuner: Tre Ferrell MD WBC (Bld) [#/Vol] 7.9 10*3/uL Normal 3.5-11.3 [facility] Comment on above: Performed By: #### E RTPF #### [address] [address] Accordion Tuner: Tre Ferrell MD Auto Diff Performed NOT REPORTED Normal [facility] Comment on above: Performed By: #### E RTPF #### [address] [address] Accordion Tuner: Tre Ferrell MD Platelet mean volume (Bld) [Entitic vol] NOT REPORTED Normal 8.1-13.5 [facility] Comment on above: Performed By: #### E RTPF #### [address] [address] Accordion Tuner: Tre Ferrell MD Platelets (Bld) [#/Vol] NOT REPORTED Normal [facility] Comment on above: Performed By: #### E RTPF #### [address] [address] Accordion Tuner: Tre Ferrell MD RBC morphology finding Nom (Bld) NOT REPORTED Normal [facility] Comment on above: Performed By: #### E RTPF #### [address] [address] Accordion Tuner: Tre Ferrell MD WBC Morphology NOT REPORTED Normal [facility] Comment on above: Performed By: #### E RTPF #### [address] [address] Accordion Tuner: Tre Ferrell MD Extubationon 09-26-2019 Braden Ziegler RCP 09/26/2019 6:36 PM Order obtained for extubation. SpO2 of 30 on 100% FiO2. Patient extubated and placed on 30% O2 via HFNC. Patient had mild cough that was productive of clear and white sputum. Extubation Well tolerated by patient.. Breath Sounds: clear BRADEN Jasen EMMANUELTZ 6:35 PM [place] Immature Platelet Fractionon 09-26-2019 Interpretation and review of laboratory results Abnormal [place] Platelet, Fluorescence [address] [place] Comment on above: ORDERED BY LAB Platelet, Immature Fraction 4.7 % 1.1 - 10.3 % [place] Comment on above: ORDERED BY LAB Lactic Acid, POCon 0 POC Lactic Acid 0.35 mmol/L Low 0.56 - 1.39 mmol/L [place] POC Lactic Acid 0.32 mmol/L Low 0.56 - 1.39 mmol/L [place] Otheron 09-26-2019 Interpretation and review of laboratory results Abnormal [place] Interpretation and review of laboratory results Abnormal [place] PLT, Immature Fract.on 09-25 Platelet, Fluoresc. 123 k/uL Low 138-453 [facility] Comment on above: Result Comment: ORDE RED BY LAB Performed By: #### E RTPF #### [facility] [address] [place] [address] Accordion Tuner: Tre Ferrell MD PLT, Immature Fract. 4.7 % Normal 1.1-10.3 [facility] Comment on above: Result Comment: ORDE RED BY LAB Performed By: #### E RTPF #### [facility] [address] [place] [address] Accordion Tuner: Tre Ferrell MD POC Glucose Fingerstickon Glucose [Mass/Vol] 88 mg/dL 75 - 110 mg/dL [place] Glucose [Mass/Vol] 122 mg/dL High 75 - 110 mg/dL [place] Interpretation and review of laboratory results Abnormal [place] Glucose [Mass/Vol] 124 mg/dL High 75 - 110 mg/dL [place] Interpretation and review of laboratory results Abnormal [place] POCT Glucoseon 09-26-2019 Glucose [Mass/Vol] 130 mg/dL High 74 - 100 mg/dL [place] Glucose [Mass/Vol] 156 mg/dL High 74 - 100 mg/dL [place] XR CHEST PORTABLEon 09-26-19 20 XR [...] Dewayne Lopez MD 09/26/[address] [facility] No acute cardiopulmonary process. Stable support tubes. [place] Samm, Mhpn Incoming Radiant Results From [employer] - 09/26/2019 10:01 AM EDT EXAMINATION: ONE [...] No acute cardiopulmonary process. Stable support tubes. [place] EXAMINATION: ONE XRAY VIEW OF THE [...] tube and the tip is not visualized. [place] Arterial Blood Gas, POCon Mino Test NOT REPORTED [place] aPTT Coag (Bld) [Time] NOT REPORTED [place] FIO2 30.0 [place] Mode NOT REPORTED [place], [place] Negative Base Excess, Art NOT REPORTED [place] O2 Device/Flow/% Adult Ventilator [place] Oxygen saturation in Blood 98 % 94 - 98 % [place] POC HCO3 25.9 mmol/L 21 - 28 mmol/L [place] POC pCO2 45.8 [place] POC pCO2 Temp NOT REPORTED mm Hg [place] POC pH 7.361 [place] POC pH Temp NOT REPORTED [place] POC PO2 100.9 [place] POC pO2 Temp NOT REPORTED mm Hg [place], [place] Positive Base Excess, Art 0 [place] Sample Site Arterial Line [place], [place] TCO2 (calc), Art 27 mmol/L 22 - 29 mmol/L [place] Basic Metab w/rfx MGon 09-24 (cont.) Normal [facility] Comment on above: Result Comment: Aver age GFR for 60-69 years old: 85 mL/min/1.73sq m Chronic Kidney Disease: <60 mL/min/1.73sq m Kidney failure: <15 mL/min/1.73sq m eGFR calculated using average adult body mass. Additional eGFR calculator available at: http://www.[employer]/multiple_crcl_2012.htm Performed By: #### E RTPF #### [employer] [address] [place] [address] Accordion Tuner: Tre Ferrell MD Anion gap [Moles/Vol] 11 mmol/L Normal 9-17 [facility] Comment on above: Performed By: #### E RTPF #### [address] [address] Accordion Tuner: Tre Ferrell MD Calcium [Mass/Vol] 8.1 mg/dL Low 8.6-10.4 [facility] Comment on above: Performed By: #### E RTPF #### [address] [address] Accordion Tuner: Tre Ferrell MD Chloride [Moles/Vol] 110 mmol/L High 98-107 [facility] Comment on above: Performed By: #### E RTPF #### [address] [address] Accordion Tuner: Tre Frerell MD CO2 [Moles/Vol] 21 mmol/L Normal 20-31 [facility] Comment on above: Performed By: #### E RTPF #### [address] [address] Accordion Tuner: Tre Ferrell MD Creatinine [Mass/Vol] 0.73 mg/dL Normal 0.70-1.20 [facility] Comment on above: Performed By: #### E RTPF #### [address] [address] Accordion Tuner: Tre Ferrell MD GFR, Amer >60 Normal >60 [facility] Comment on above: Performed By: #### E RTPF #### [address] [address] Accordion Tuner: Tre Ferrell MD GFR,non Amer >60 Normal >60 [facility] Comment on above: Performed By: #### E RTPF #### [address] [address] Accordion Tuner: Tre Ferrell MD Glucose [Mass/Vol] 134 mg/dL High 70-99 [facility] Comment on above: Performed By: #### E RTPF #### [address] [address] Accordion Tuner: Tre Ferrell MD Potassium [Moles/Vol] 4.1 mmol/L Normal 3.7-5.3 [facility] Comment on above: Performed By: #### E RTPF #### [address] [address] Accordion Tuner: Tre Ferrell MD Sodium [Moles/Vol] 142 mmol/L Normal 135-144 [facility] Comment on above: Performed By: #### E RTPF #### [address] [address] Accordion Tuner: Tre Ferrell MD Urea nitrogen [Mass/Vol] 13 mg/dL Normal 8- [facility] Comment on above: Performed By: #### E RTPF #### [address] [address] Accordion Tuner: Tre Ferrell MD BUN/CRE Ratio NOT REPORTED Normal 12-15 [facility] Comment on above: Performed By: #### E RTPF #### [address] [address] Accordion Tuner: Tre Ferrell MD Staging: NOT REPORTED Normal [facility] Comment on above: Performed By: #### E RTPF #### [address] [address] Accordion Tuner: Tre Ferrell MD Basic Metabolic Panel w/ Ref kylee to MGon 09-25-2019 Anion gap [Moles/Vol] 11 mmol/L 9 - 17 mmol/L [place] Bun/Cre Ratio NOT REPORTED [place] Calcium [Mass/Vol] 8.1 mg/dL Low 8.6 - 10. 4 mg/dL [place] Chloride [Moles/Vol] 110 mmol/L High 98 - 10 7 mmol/L [place] CO2 [Moles/Vol] 21 mmol/L 20 - 31 mmol/L [place] Creatinine [Mass/Vol] 0.73 mg/dL 0.7 - 1.2 mg/dL [place] GFR >60 >60 mL/min [place] GFR Non- >60 >60 mL/min [place] GFR/1.73 sq M predicted among non-blacks MDRD (S/P/Bld) [Vol rate/Area] [place] Comment on above: Average GFR for 60-6 9 years old: 85 mL/min/1.73sq m Chronic Kidney Disease: <60 mL/min/1.73sq m Kidney failure: <15 mL/min/1.73sq m eGFR calculated using average adult body mass. Additional eGFR calculator available at: http://www.[employer]/multiple_crcl_2012.htm GFR/1.73 sq M predicted among non-blacks MDRD (S/P/Bld) [Vol rate/Area] NOT REPORTED [place] Glucose [Mass/Vol] 134 mg/dL High 70 - 99 mg/dL [place] Interpretation and review of laboratory results Abnormal [place] Potassium [Moles/Vol] 4.1 mmol/L 3.7 - 5.3 mmol/L [place] Sodium [Moles/Vol] 142 mmol/L 135 - 144 mmol/L [place] Urea nitrogen [Mass/Vol] 13 mg/dL 8 - 23 mg/dL [place] CBC WITH AUTO DIFFERENTIALon 09-25-2019 Basophils (Bld) [#/Vol] 10*3/uL M [place] Basophils/100 WBC (Bld) 0 % 0 - 2 % M [place] Differential Type NOT REPORTED [place] Eosinophils (Bld) [#/Vol] 10*3/uL [place] Eosinophils/100 WBC (Bld) 0 % Low 1 - 4 % [place] Erythrocyte distribution width (RBC) [Ratio] 13.5 % 11.8 - 14.4 % [place] Hematocrit (Bld) [Volume fraction] 32.9 % Low 40.7 - 50.3 % [place] Hemoglobin (Bld) [Mass/Vol] 10.1 g/dL Low 13 - 17 g/dL [place] Immature granulocytes (Bld) [#/Vol] 0.06 10*3/uL [place] Immature granulocytes (Bld) [#/Vol] 1 % High 0 [place] Interpretation and review of laboratory results Abnormal [place] Lymphocytes (Bld) [#/Vol] 1.20 10*3/uL [place] Lymphocytes/100 WBC (Bld) 12 % Low 24 - 43 % [place] MCH (RBC) [Entitic mass] 28.5 pg 25.2 - 33.5 pg [place] MCHC (RBC) [Mass/Vol] 30.7 g/dL 28.4 - 34.8 g/dL [place] MCV (RBC) [Entitic vol] 92.9 fL 82.6 - 102.9 fL [place] Monocytes (Bld) [#/Vol] 1.34 10*3/uL High [place] Monocytes/100 WBC (Bld) 14 % High 3 - 12 % [place] Platelet mean volume (Bld) [Entitic vol] NOT REPORTED 8.1 - 13.5 fL [place] Platelets (Bld) [#/Vol] See Reflexed IPF Result [place] Platelets (Bld) [#/Vol] NOT REPORTED [place] RBC (Bld) [#/Vol] 3.54 10*6/uL Low 4.21 - 5.7 7 m/uL [place] RBC morphology finding Nom (Bld) NOT REPORTED [place] Segmented neutrophils/100 WBC (Bld) 74 % High 36 - 65 % [place] Segs Absolute 7.33 [place] WBC (Bld) [#/Vol] 10.0 10*3/uL [place] WBC (Bld) [#/Vol] 0.0 10*3/uL 0.0 per 10 0 WBC [place] WBC Morphology NOT REPORTED [place] CBC with Diffon 09-25-2019 Abs. Basophil <0.03 Normal 0.00-0.20 [facility] Comment on above: Performed By: #### E RTPF #### [address] [address] Accordion Tuner: Tre Ferrell MD Abs.Imm.Granulocyte 0.06 k/uL Normal 0.00-0.30 [facility] Comment on above: Performed By: #### E RTPF #### [address] [address] Accordion Tuner: Tre Ferrell MD Abs.Neutrophil (Seg) 7.33 k/uL Normal 1.50-8.10 [facility] Comment on above: Performed By: #### E RTPF #### [address] [address] Accordion Tuner: Tre Ferrell MD Basophils/100 WBC (Bld) 0 % Normal 0-2 [facility] Comment on above: Performed By: #### E RTPF #### [address] [address] Accordion Tuner: Tre Ferrell MD Eosinophils (Bld) [#/Vol] 10*3/uL Normal 0.00-0.44 [facility] Comment on above: Performed By: #### E RTPF #### [address] [address] Accordion Tuner: Tre Ferrell MD Eosinophils/100 WBC (Bld) 0 % Low 1-4 [facility] Comment on above: Performed By: #### E RTPF #### [address] [address] Accordion Tuner: Tre Ferrell MD Erythrocyte distribution width (RBC) [Ratio] 13.5 % Normal 11.8-14.4 [facility] Comment on above: Performed By: #### E RTPF #### [address] [address] Accordion Tuner: Tre Ferrell MD Hematocrit (Bld) [Volume fraction] 32.9 % Low 40.7-50.3 [facility] Comment on above: Performed By: #### E RTPF #### [address] [address] Accordion Tuner: Tre Ferrell MD Hemoglobin (Bld) [Mass/Vol] 10.1 g/dL Low 13.0-17.0 [facility] Comment on above: Performed By: #### E RTPF #### [address] [address] Accordion Tuner: Tre Ferrell MD Immature granulocytes (Bld) [#/Vol] 1 % High 0 [facility] Comment on above: Performed By: #### E RTPF #### [address] [address] Accordion Tuner: Tre Ferrell MD Lymphocytes (Bld) [#/Vol] 1.20 10*3/uL Normal 1.10-3.70 [facility] Comment on above: Performed By: #### E RTPF #### [address] [address] Accordion Tuner: Tre Ferrell MD Lymphocytes/100 WBC (Bld) 12 % Low 24-43 [facility] Comment on above: Performed By: #### E RTPF #### [address] [address] Accordion Tuner: Tre Ferrell MD MCH (RBC) [Entitic mass] 28.5 pg Normal 25.2-33.5 [facility] Comment on above: Performed By: #### E RTPF #### [address] [address] Accordion Tuner: Tre Ferrell MD MCHC (RBC) [Mass/Vol] 30.7 g/dL Normal 28.4-34.8 [facility] Comment on above: Performed By: #### E RTPF #### [address] [address] Accordion Tuner: Tre Ferrell MD MCV (RBC) [Entitic vol] 92.9 fL Normal 82.6-102.9 [facility] Comment on above: Performed By: #### E RTPF #### [address] [address] Accordion Tuner: Tre Ferrell MD Monocytes (Bld) [#/Vol] 1.34 10*3/uL High 0.10-1.20 [facility] Comment on above: Performed By: #### E RTPF #### [address] [address] Accordion Tuner: Tre Ferrell MD Monocytes/100 WBC (Bld) 14 % High 3-12 [facility] Comment on above: Performed By: #### E RTPF #### [address] [address] Accordion Tuner: Tre Ferrell MD Neutrophil (Seg) 74 % High 36-65 [facility] Comment on above: Performed By: #### E RTPF #### [address] [address] Accordion Tuner: Tre Ferrell MD NRBC Automated 0.0 per [address] [facility] Comment on above: Performed By: #### E RTPF #### [address] [address] Accordion Tuner: Tre Ferrell MD Platelets (Bld) [#/Vol] See Reflexed IPF Result Normal 138-453 [facility] Comment on above: Performed By: #### E RTPF #### [address] [address] Accordion Tuner: Tre Ferrell MD RBC (Bld) [#/Vol] 3.54 10*6/uL Low 4.21-5.77 [facility] Comment on above: Performed By: #### E RTPF #### [address] [address] Accordion Tuner: Tre Ferrell MD WBC (Bld) [#/Vol] 10.0 10*3/uL Normal 3.5-11.3 [facility] Comment on above: Performed By: #### E RTPF #### [address] [address] Accordion Tuner: Tre Ferrell MD Auto Diff Performed NOT REPORTED Normal [facility] Comment on above: Performed By: #### E RTPF #### [address] [address] Accordion Tuner: Tre Ferrell MD Platelet mean volume (Bld) [Entitic vol] NOT REPORTED Normal 8.1-13.5 [facility] Comment on above: Performed By: #### E RTPF #### [address] [address] Accordion Tuner: Tre Ferrell MD Platelets (Bld) [#/Vol] NOT REPORTED Normal [facility] Comment on above: Performed By: #### E RTPF #### [address] [place] [address] Accordion Tuner: Tre Ferrell MD RBC morphology finding Nom (Bld) NOT REPORTED Normal [facility] Comment on above: Performed By: #### E RTPF #### [address] [address] Accordion Tuner: Tre Ferrell MD WBC Morphology NOT REPORTED Normal [facility] Comment on above: Performed By: #### E RTPF #### [address] [address] Accordion Tuner: Tre Ferrell MD Immature Platelet Fractionon 09-25-2019 Interpretation and review of laboratory results Abnormal [place] Platelet, Fluorescence [address] [place], [place] Comment on above: ORDERED BY LAB Platelet, Immature Fraction 4.3 % 1.1 - 10.3 % [place] Comment on above: ORDERED BY LAB Lactic Acid, POCon 0 POC Lactic Acid 0.68 mmol/L 0.56 - 1.39 mmol/L [place] PLT, Immature Fract.on 09-24 Platelet, Fluoresc. 129 k/uL Low 138-453 [facility] Comment on above: Result Comment: ORDE RED BY LAB Performed By: #### E RTPF #### [address] [address] Accordion Tuner: Tre Ferrlel MD PLT, Immature Fract. 4.3 % Normal 1.1-10.3 [facility] Comment on above: Result Comment: ORDE RED BY LAB Performed By: #### E RTPF #### [address] [address] Accordion Tuner: Tre Ferrell MD XR CERVICAL SPINE (2-3 [...] Beverly Allen DO 09/25/[address] [facility] Status post C3-C5 posterior decompression and fusion. [place] EXAMINATION: 2 XRAY VIEWS OF THE [...] C6-C7. Endotracheal and enteric tubes are noted. [place], [place] Incoming Radiant Results From [employer] - 09/25/2019 4:44 PM EDT EXAMINATION: 2 [...] Status post C3-C5 posterior decompression and fusion. [place] Arterial Blood Gas, POCon Mino Test NOT REPORTED [place], [place] aPTT Coag (Bld) [Time] NOT REPORTED [place] FIO2 30.0 [place] Mode [place] Negative Base Excess, Art NOT REPORTED [place] O2 Device/Flow/% Adult Ventilator [place], [place] Oxygen saturation in Blood 97 % 94 - 98 % [place] POC HCO3 24.7 mmol/L 21 - 28 mmol/L [place] POC pCO2 41.7 [place] POC pCO2 Temp NOT REPORTED mm Hg [place] POC pH 7.381 [place] POC pH Temp NOT REPORTED [place] POC PO2 97.7 [place] POC pO2 Temp NOT REPORTED mm Hg [place], [place] Positive Base Excess, Art 0 [place] Sample Site Arterial Line [place], [place] TCO2 (calc), Art 26 mmol/L 22 - 29 mmol/L [place] Mino Test NOT REPORTED [place] aPTT Coag (Bld) [Time] NOT REPORTED [place] FIO2 60.0 [place] Mode [place] Negative Base Excess, Art 2 [place] O2 Device/Flow/% Adult Ventilator [place] Oxygen saturation in Blood 100 % High 94 - 98 % [place] POC HCO3 23.7 mmol/L 21 - 28 mmol/L [place] POC pCO2 45.3 [place] POC pCO2 Temp NOT REPORTED mm Hg [place] POC pH 7.327 Low [place] POC pH Temp NOT REPORTED [place] POC PO2 242.1 High [place] POC pO2 Temp NOT REPORTED mm Hg [place], [place] Positive Base Excess, Art NOT REPORTED [place] Sample Site Arterial Line [place] TCO2 (calc), Art 25 mmol/L 22 - 29 mmol/L [place] Basic Metab w/rfx MGon 09-23 (cont.) Normal [facility] Comment on above: Result Comment: Aver age GFR for 60-69 years old: 85 mL/min/1.73sq m Chronic Kidney Disease: <60 mL/min/1.73sq m Kidney failure: <15 mL/min/1.73sq m eGFR calculated using average adult body mass. Additional eGFR calculator available at: http://www.[employer]/multiple_crcl_2012.htm Performed By: #### E RTPF #### [address] [address] Accordion Tuner: Tre Ferrell MD GFR, Amer >60 Normal >60 [facility] Comment on above: Performed By: #### E RTPF #### [address] [id number] Acc[employer] Tuner: Tre Ferrell MD GFR,non Amer >60 Normal >60 [facility] Comment on above: Performed By: #### E RTPF #### [address] [id number] Accord[employer] Tuner: Tre Ferrell MD BUN/CRE Ratio NOT REPORTED Normal -20 [facility] Comment on above: Performed By: #### E RTPF #### [address] [id number] Acc[employer] Tuner: Tre Ferrell MD Staging: NOT REPORTED Normal [facility] Comment on above: Performed By: #### E RTPF #### [address] [place] [address] Accordion Tuner: Tre Ferrell MD Calcium [Mass/Vol] 8.1 mg/dL Low 8.6-10.4 [place] Comment on above: Performed By: #### E RTPF #### [address] [address] Accordion Tuner: Tre Ferrell MD CO2 [Moles/Vol] 21 mmol/L Normal 20-31 [place] Comment on above: Performed By: #### E RTPF #### [address] [address] Accordion Tuner: Tre Ferrell MD Creatinine [Mass/Vol] 0.64 mg/dL Low 0.70-1.20 [place] Comment on above: Performed By: #### E RTPF #### [address] [address] Accordion Tuner: Tre Ferrell MD Glucose [Mass/Vol] 154 mg/dL High 70-99 [place] Comment on above: Performed By: #### E RTPF #### [address] [address] Accordion Tuner: Tre Ferrell MD Potassium [Moles/Vol] 4.5 mmol/L Normal 3.7-5.3 [place] Comment on above: Performed By: #### E RTPF #### [address] [address] [employer] Tuner: Tre Ferrell MD Sodium [Moles/Vol] 142 mmol/L Normal 135-144 [place] Comment on above: Performed By: #### E RTPF #### [address] [address] Accordion Tuner: Tre Ferrell MD Urea nitrogen [Mass/Vol] 15 mg/dL Normal 8-23 [place] Comment on above: Performed By: #### E RTPF #### [facility] [address] [place], [place] [id number] Accordion Tuner: Tre Ferrell MD Anion gap [Moles/Vol] 12 mmol/L Normal 9-17 [place], [place] Comment on above: Performed By: #### E RTPF #### [facility] [address] [place], [place] [id number] Accordion Tuner: Tre Ferrell MD Chloride [Moles/Vol] 109 mmol/L High 98-107 [place], [place] Comment on above: Performed By: #### E RTPF #### [facility] [address] [place], [place] [phone] Accordion Tuner: Tre Ferrell MD Basic Metabolic Panel w/ Ref kylee to MGon 09-24-2019 Bun/Cre Ratio NOT REPORTED [place], [place] GFR >60 >60 mL/min [place] GFR Non- >60 >60 mL/min [place] GFR/1.73 sq M predicted among non-blacks MDRD (S/P/Bld) [Vol rate/Area] [place], [place] Comment on above: Average GFR for 60-6 9 years old: 85 mL/min/1.73sq m Chronic Kidney Disease: <60 mL/min/1.73sq m Kidney failure: <15 mL/min/1.73sq m eGFR calculated using average adult body mass. Additional eGFR calculator available at: http://www.[employer]/multiple_crcl_2012.htm GFR/1.73 sq M predicted among non-blacks MDRD (S/P/Bld) [Vol rate/Area] NOT REPORTED [place] Interpretation and review of laboratory results Abnormal [place] CALCIUM, IONIC (POC)on 09-23 POC Ionized Calcium 1.17 mmol/L 1.15 - 1 .33 mmol/L [place] CBCon 09-24-2019 Erythrocyte distribution width (RBC) [Ratio] 13.1 % Normal 11.8-14.4 [facility] Comment on above: Performed By: #### BRANDY Nunez DAU #### [facility] [address] [place] [phone] Accordion Tuner: Tre Ferrell MD Hematocrit (Bld) [Volume fraction] 37.3 % Low 40.7-50.3 [facility] Comment on above: Performed By: #### BRANDY Nunez DAU #### [facility] [address] [place] [phone] Accordion Tuner: Tre Ferrell MD Hemoglobin (Bld) [Mass/Vol] 11.8 g/dL Low 13.0-17.0 [facility] Comment on above: Performed By: #### BRANDY Nunez DAU #### [address] [address] Accordion Tuner: Tre Ferrell MD MCH (RBC) [Entitic mass] 28.9 pg Normal 25.2-33.5 [facility] Comment on above: Performed By: #### BRANDY Nunez DAU #### [facility] [address] [place] [phone] Accordion Tuner: Tre Ferrell MD MCHC (RBC) [Mass/Vol] 31.6 g/dL Normal 28.4-34.8 [facility] Comment on above: Performed By: #### BRANDY Nunez DAU #### [facility] [address] [place] [phone] Accordion Tuner: Tre Ferrell MD MCV (RBC) [Entitic vol] 91.4 fL Normal 82.6-102.9 M [facility] Comment on above: Performed By: #### BRANDY Nunez DAU #### [facility] [address] [place] [phone] Accordion Tuner: Tre Ferrell MD NRBC Automated 0.0 per [address] [facility] Comment on above: Performed By: #### BRANDY Nunez DAU #### [facility] [address] [place] [phone] Accordion Tuner: Tre Ferrell MD Platelets (Bld) [#/Vol] See Reflexed IPF Result Normal 138-453 [facility] Comment on above: Performed By: #### BRANDY Nunez DAU #### [facility] [address] [place] [phone] Accordion Tuner: Tre Ferrell MD RBC (Bld) [#/Vol] 4.08 10*6/uL Low 4.21-5.77 [facility] Comment on above: Performed By: #### BRANDY Nunez DAU #### [facility] [address] [place] [phone] Accordion Tuner: Tre Ferrell MD WBC (Bld) [#/Vol] 6.7 10*3/uL Normal 3.5-11.3 [facility] Comment on above: Performed By: #### BRANDY Nunez DAU #### [facility] [address] [place] [phone] Accordion Tuner: Tre Ferrell MD Platelet mean volume (Bld) [Entitic vol] NOT REPORTED Normal 8.1-13.5 [facility] Comment on above: Performed By: #### BRANDY Nunez DAU #### [facility] [address] [place] [phone] Accordion Tuner: Tre Ferrell MD Erythrocyte distribution width (RBC) [Ratio] 13.1 % 11.8 - 14.4 % [place] Hematocrit (Bld) [Volume fraction] 37.3 % Low 40.7 - 50.3 % [place] Hemoglobin (Bld) [Mass/Vol] 11.8 g/dL Low 13 - 17 g/dL [place] Interpretation and review of laboratory results Abnormal [place] MCH (RBC) [Entitic mass] 28.9 pg 25.2 - 33.5 pg [place] MCHC (RBC) [Mass/Vol] 31.6 g/dL 28.4 - 34.8 g/dL [place] MCV (RBC) [Entitic vol] 91.4 fL 82.6 - 102.9 fL [place] Platelet mean volume (Bld) [Entitic vol] NOT REPORTED 8.1 - 13.5 fL [place] Platelets (Bld) [#/Vol] See Reflexed IPF Result [place] RBC (Bld) [#/Vol] 4.08 10*6/uL Low 4.21 - 5.7 7 m/uL [place] WBC (Bld) [#/Vol] 0.0 10*3/uL 0.0 per 10 0 WBC [place] WBC (Bld) [#/Vol] 6.7 10*3/uL [place] Creatinine W/GFR Point of Ca reon 09-24-2019 Creatinine [Mass/Vol] 1.03 mg/dL 0.51 - 1.19 mg/dL [place] GFR Non- CANNOT BE CALCULATED >60 mL/min [place] GFR/1.73 sq M predicted among non-blacks MDRD (S/P/Bld) [Vol rate/Area] [place] Comment on above: Average GFR for 60-6 9 years old: 85 mL/min/1.73sq m Chronic Kidney Disease: <60 mL/min/1.73sq m Kidney failure: <15 mL/min/1.73sq m eGFR calculated using average adult body mass. Additional eGFR calculator available at: http://www.[employer]/multiple_crcl_2012.htm GFR/1.73 sq M predicted among non-blacks MDRD (S/P/Bld) [Vol rate/Area] CANNOT BE CALCULATED >60 mL/min [place] Hemoglobin and hematocrit, b loodon 09-24-2019 Hematocrit (Bld) [Volume fraction] 37 % Low 41 - 53 % [place] Hemoglobin (Bld) [Mass/Vol] 12.7 g/dL Low 13.5 - 17.5 g/dL [place] Immature Platelet Fractionon 09-24-2019 Interpretation and review of laboratory results Abnormal [place] Platelet, Fluorescence 129 [address] [place], [place] Comment on above: ORDERED BY LAB Platelet, Immature Fraction 4.3 % 1.1 - 10.3 % [place] Comment on above: ORDERED BY LAB Lactic Acidon 09-24-2019 Lactate [Moles/Vol] 1.9 mmol/L Normal 0.7-2.1 [facility] Comment on above: Performed By: #### BRANDY Nunez DAU #### [facility] [address] [place] [address] [phone] Accordion Tuner: Tre Ferrell MD Lactate [Moles/Vol] NOT REPORTED Normal [facility] Comment on above: Performed By: #### BRANDY Nunez DAU #### [facility] [address] [place] [address] [phone] Accordion Tuner: Tre Ferrell MD Lactic Acid, POCon 0 POC Lactic Acid 0.92 mmol/L 0.56 - 1.39 mmol/L [place] POC Lactic Acid 2.45 mmol/L High 0.56 - 1.39 mmol/L [place] Lactic acid, plasmaon 2019 Lactate [Moles/Vol] NOT REPORTED mmol/L [place] Lactic Acid, Whole Blood 1.9 mmol/L 0.7 - 2.1 mmol/L [place] Otheron 09-24-2019 Interpretation and review of laboratory results Abnormal [place] PLT, Immature Fract.on 09-23 Platelet, Fluoresc. 129 k/uL Low 138-453 [facility] Comment on above: Result Comment: ORDE RED BY LAB Performed By: #### U A, UMICAO, MK #### [facility] [address] [place] [address] Accordion Tuner: Tre Ferrell MD PLT, Immature Fract. 4.3 % Normal 1.1-10.3 [facility] Comment on above: Result Comment: ORDE RED BY LAB Performed By: #### BRANDY Nunez DAU #### [facility] [address] [place] [address] Accordion Tuner: Tre Ferrell MD POCT Glucoseon 09-24-2019 Glucose [Mass/Vol] 97 mg/dL 74 - 100 mg/dL [place] POTASSIUM (POC)on 09-24-2019 Potassium [Moles/Vol] 3.6 mmol/L 3.5 - 4.5 mmol/L [place] SODIUM (POC)on 09-24-2019 Sodium [Moles/Vol] 145 mmol/L 138 - 146 mmol/L [place] XR CERVICAL SPINE (2-3 VIEWS )on [...] Dameon Ramirez MD 09/24/[address] [facility] EXAMINATION: 2 XRAY VIEWS OF THE CERVICAL [...] on these views. Support tubes in place. [facility] [place] Intraoperative views of posterior fusion of C3, C4 and C5. [place] Samm, Mhpn Incoming Radiant Results From [email or web address] - 09/24/2019 7:55 AM EDT EXAMINATION: 2 [...] posterior fusion of C3, C4 and C5. [place] XR CHEST PORTABLEon 09-24-19 20 XR CHEST [...] Fede Stafford MD 09/24/[address] [facility] EXAMINATION: ONE XRAY VIEW OF THE CHEST [...] is stable. The osseous structures are stable. [place], [place] Incoming Radiant Results From [email or web address] - 09/24/2019 2:08 PM EDT EXAMINATION: ONE [...] structures are stable. IMPRESSION: No acute process. [place] No acute process. [place] AMMONIAon 09-23-2019 Ammonia (P) [Mass/Vol] 37 umol/L 16 - 60 umol/L [place] Ammoniaon 09-23-2019 Ammonia (P) [Mass/Vol] 37 umol/L Normal 16-60 [facility] Comment on above: Performed By: #### BRANDY Nunez DAU #### [facility] [place] [address] Accordion Tuner: Tre Ferrell MD Arterial Blood Gas, POCon Mino Test NOT REPORTED [place], [place] aPTT Coag (Bld) [Time] NOT REPORTED [place] FIO2 30.0 [place] Mode PRVC [place] Negative Base Excess, Art NOT REPORTED [place] O2 Device/Flow/% Adult Ventilator [place], [place] Oxygen saturation in Blood 94 % 94 - 98 % [place] POC HCO3 27.3 mmol/L 21 - 28 mmol/L [place] POC pCO2 50.8 High [place], [place] POC pCO2 Temp NOT REPORTED mm Hg [place], [place] POC pH 7.338 Low [place], [place] POC pH Temp NOT REPORTED [place] POC PO2 76.9 Low [place] POC pO2 Temp NOT REPORTED mm Hg [place], [place] Positive Base Excess, Art 1 [place], [place] Sample Site Arterial Line [facility] [place] TCO2 (calc), Art 29 mmol/L 22 - 29 mmol/L [place] Basic Metab w/rfx MGon 09-22 (cont.) Normal [facility] Comment on above: Result Comment: Aver age GFR for 60-69 years old: 85 mL/min/1.73sq m Chronic Kidney Disease: <60 mL/min/1.73sq m Kidney failure: <15 mL/min/1.73sq m eGFR calculated using average adult body mass. Additional eGFR calculator available at: http://www.[employer]oquo/multiple_crcl_2011.htm Performed By: #### BRANDY Nunez DAU #### [facility] [address] [place] [phone] Accordion Tuner: Tre Ferrell MD Anion gap [Moles/Vol] 11 mmol/L Normal 9-17 [facility] Comment on above: Performed By: #### BRANDY Nunez DAU #### [facility] [address] [place] [phone] Accordion Tuner: Tre Ferrell MD Calcium [Mass/Vol] 8.4 mg/dL Low 8.6-10.4 [facility] Comment on above: Performed By: #### BRANDY Nunez DAU #### [facility] [address] [place] [phone] Accordion Tuner: Tre Ferrell MD Chloride [Moles/Vol] 108 mmol/L High 98-107 [facility] Comment on above: Performed By: #### BRANDY Nunez DAU #### [facility] [address] [place] [phone] Accordion Tuner: Tre Ferrell MD CO2 [Moles/Vol] 23 mmol/L Normal 20-31 [facility] Comment on above: Performed By: #### BRANDY Nunez DAU #### [facility] [address] [place] [address] [place] [address] Accordion Tuner: Tre Ferrell MD Creatinine [Mass/Vol] 0.68 mg/dL Low 0.70-1.20 [facility] Comment on above: Performed By: #### U A, BRANDY, MK #### [facility] [address] [place] [phone] Accordion Tuner: Tre Ferrell MD GFR, Amer >60 Normal >60 [facility] Comment on above: Performed By: #### U A, BRANDY, MK #### [facility] [address] [place] [phone] Accordion Tuner: Tre Ferrell MD GFR,non Amer >60 Normal >60 [facility] Comment on above: Performed By: #### U ABRANDY MK #### [facility] [address] [place] [phone] Accordion Tuner: Tre Ferrell MD Glucose [Mass/Vol] 85 mg/dL Normal 70-99 [facility] Comment on above: Performed By: #### U ABRANDY MK #### [facility] [address] [place] [phone] Accordion Tuner: Tre Ferrell MD Potassium [Moles/Vol] 3.9 mmol/L Normal 3.7-5.3 [facility] Comment on above: Performed By: #### U A, BRANDY MK #### [facility] [address] [place] [phone] Accordion Tuner: Tre Ferrell MD Sodium [Moles/Vol] 142 mmol/L Normal 135-144 [facility] Comment on above: Performed By: #### U A, BRANDY, MK #### [facility] [address] [place] [phone] Accordion Tuner: Tre Ferrell MD Urea nitrogen [Mass/Vol] 15 mg/dL Normal 8-23 [facility] Comment on above: Performed By: #### BRANDY Nunez DAU #### [facility] [address] [place], [place] [phone] Accordion Tuner: Tre Ferrell MD BUN/CRE Ratio NOT REPORTED Normal 9-20 [facility] Comment on above: Performed By: #### BRANDY Nunez DAU #### [facility] [address] [place], [place] [phone] Accordion Tuner: Tre Ferrell MD Staging: NOT REPORTED Normal [facility] Comment on above: Performed By: #### BRANDY Nunez DAU #### [facility] [address] [place], [place] [phone] Accordion Tuner: Tre Ferrell MD Basic Metabolic Panel w/ Ref kylee to MGon 09-23-2019 Anion gap [Moles/Vol] 11 mmol/L 9 - 17 mmol/L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 Phone: Start: 09-28-2019 INCENTIVE SPIROMETRY RT ERIN LUDWIG Start: 09-28-2019 INCENTIVE SPIROMETRY RT ERIN LUDWIG Start: 09-28-2019 NEBULIZER TX INTERMITTENT ERIN LUDWIG Start: 09-28-2019 INCENTIVE SPIROMETRY RT ERIN LUDWIG Start: 09-28-2019 Glucose blood reagent strip Erin Ludwig Work Phone: Start: 09-28-2019 INCENTIVE SPIROMETRY RT ERIN LUDWIG Start: 09-28-2019 NEBULIZER TX INTERMITTENT ERIN LUDWIG Start: 09-28-2019 Glucose blood reagent strip ERIN LUDWIG Start: 09-28-2019 INCENTIVE SPIROMETRY RT ERIN LUDWIG Start: 09-28-2019 Glucose blood reagent strip Erin Ludwig Work Phone: Start: 09-28-2019 ACAPELLA ERIN MARROQUINOR E Start: 09-28-2019 INCENTIVE SPIROMETRY RT ERIN LUDWIG Start: 09-28-2019 INITIATE OXYGEN THER APY PROTOCOL ERIN LUDWIG Start: 09-28-2019 NEBULIZER TX INTERMITTENT ERIN LUDWIG Start: 09-28-2019 Assay of magnesium MAXWELL LUDWIG Start: 09-28-2019 Assay of phosphorus inorganic ERIN LUDWIG Start: 09-28-2019 Basic metabolic pane l calcium total ERIN LUDWIG Start: 09-28-2019 Blood count complete automated ERIN LUDWIG Start: 09-28-2019 Prothrombin time ERIN LUDWIG Start: 09-28-2019 INCENTIVE SPIROMETRY RT ERIN LUDWIG Start: 09-28-2019 Glucose blood reagent strip Erin Avila Oziel Work Phone: Start: 09-28-2019 DIET GENERAL ERIN MADELINE E Start: 09-28-2019 Assay of magnesium Micheal s Erica Piedra Work Phone: Start: 09-28-2019 Assay of phosphorus inorganic Gianni Piedra Work Phone: Start: 09-28-2019 Basic metabolic pane l calcium total Gianni Piedra Work Phone: Start: 09-28-2019 Blood count complete automated Gianni Piedra Work Phone: Start: 09-28-2019 Prothrombin time Gianni Silveira Piedra Work Phone: Start: 09-28-2019 INCENTIVE SPIROMETRY RT ERIN LUDWIG Start: 09-27-2019 INCENTIVE SPIROMETRY RT ERIN LUDWIG Start: 09-27-2019 NEBULIZER TX INTERMITTENT ERIN LUDWIG Start: 09-27-2019 INCENTIVE SPIROMETRY RT ERIN LUDWIG Start: 09-27-2019 Glucose blood reagent strip ERIN OZIEL Start: 09-27-2019 INCENTIVE SPIROMETRY RT ERIN LUDWIG Start: 09-27-2019 NEBULIZER TX INTERMITTENT ERIN LUDWIG Start: 09-27-2019 Glucose blood reagent strip Erinnatalie Ludwig Work Phone: Start: 09-27-2019 INCENTIVE SPIROMETRY RT ERIN LUDWIG Start: 09-27-2019 TURN COUGH DEEP BREATHE ERIN LUDWIG Start: 09-27-2019 ACAPELLA ERIN MADELINE E Start: 09-27-2019 INCENTIVE SPIROMETRY RT ERIN LUDWIG Start: 09-27-2019 NEBULIZER TX INTERMITTENT ERIN LUDWIG Start: 09-27-2019 Glucose blood reagent strip ERIN LUDWIG Start: 09-27-2019 INITIATE OXYGEN THER APY PROTOCOL ERIN LUDWIG Start: 09-27-2019 NEBULIZER TX INTERMITTENT ERIN LUDWIG Start: 09-27-2019 Radiologic exam ches t single view ERIN LUDWIG Start: 09-27-2019 Glucose blood reagent strip Erinnatalie Ludwig Work Phone: Start: 09-27-2019 Blood count complete auto&auto difrntl wbc ERIN LUDWIG Start: 09-27-2019 Comprehensive metabolic panel ERIN OZIEL Start: 09-27-2019 Radiologic exam ches t single view Diana Wyatt Work Phone: Start: 09-27-2019 BASIC METABOLIC PANE L W/ REFLEX TO MG FOR LOW K Diana Wyatt Work Phone: Start: 09-27-2019 Blood count complete auto&auto difrntl wbc Diana Wyatt Work Phone: Start: 09-26-2019 NEBULIZER TX INTERMITTENT ERIN LUDWIG Start: 09-26-2019 EXTUBATION ERIN CORREA Prachi Start: 09-26-2019 Glucose blood reagent strip ERIN OZIEL Start: 09-26-2019 ARTERIAL BLOOD GAS, POC ERIN LUDWIG Start: 09-26-2019 Gluc bld gluc mntr d ev cleared fda spec home use ERIN OZIEL Start: 09-26-2019 LACTIC ACID,POINT OF CARE ERIN OZIEL Start: 09-26-2019 EXTUBATION Colton Gisselle Cl malindaradha Work Phone: Start: 09-26-2019 NEBULIZER TX INTERMITTENT ERIN LUDWIG Start: 09-26-2019 Glucose blood reagent strip Erin Elaine Ludwig Work Phone: Start: 09-26-2019 ARTERIAL BLOOD GAS, POC Erin Avila Oziel Work Phone: Start: 09-26-2019 Gluc bld gluc mntr d ev cleared fda spec home use Erin Elaine Ludwig Work Phone: Start: 09-26-2019 LACTIC ACID,POINT OF CARE Erin Avila Oziel Work Phone: Start: 09-26-2019 NEBULIZER TX INTERMITTENT ERIN LUDWIG Start: 09-26-2019 Glucose blood reagent strip ERIN OZIEL Start: 09-26-2019 Blood count complete auto&auto difrntl wbc ERIN OZIEL Start: 09-26-2019 Comprehensive metabolic panel ERIN OZIEL Start: 09-26-2019 Reticulated platelet assay ERIN OZIEL Start: 09-26-2019 Radiologic exam ches t single view ERIN OZIEL Start: 09-26-2019 Glucose blood reagent strip Erin Elaine Ludwig Work Phone: Start: 09-26-2019 ARTERIAL BLOOD [...] Start: 09-26-2019 ARTERIAL BLOOD GAS, POC Erin Elaine Ludwig Work Phone: Start: 09-26-2019 Gluc bld gluc mntr d ev cleared fda spec home use Erin Avila Ludwig Work Phone: Start: 09-26-2019 LACTIC ACID,POINT OF CARE Erin Elaine Ludwig Work Phone: Start: 09-26-2019 Glucose blood reagent strip ERIN LUDWIG Start: 09-26-2019 Glucose blood reagent strip Erin Ludwig Work Phone: Start: 09-25-2019 NEBULIZER TX INTERMITTENT ERIN LUDWIG Start: 09-25-2019 NEBULIZER TX INTERMITTENT ERIN LUDWIG Start: 09-25-2019 Radex spine cervical 2 or 3 views ERIN LUDWIG Start: 09-25-2019 Radex spine cervical 2 or 3 views Veronique Partida Work Phone: Start: 09-25-2019 Blood count complete auto&auto difrntl wbc ERIN LUDWIG Start: 09-25-2019 Comprehensive metabolic panel ERIN LUDWIG Start: 09-25-2019 Reticulated platelet assay ERIN LUDWIG Start: 09-25-2019 ARTERIAL BLOOD GAS, POC ERIN LUDWIG Start: 09-25-2019 LACTIC ACID,POINT OF CARE ERIN LUDWIG Start: 09-25-2019 INITIATE OXYGEN THER APY PROTOCOL ERIN LUDWIG Start: 09-25-2019 BASIC METABOLIC PANE L W/ REFLEX TO MG FOR LOW K Diana Wyatt Work Phone: Start: 09-25-2019 Blood count complete auto&auto difrntl wbc Diana Wyatt Work Phone: Start: 09-25-2019 IMMATURE PLATELET FRACTION Diana Wyatt Work Phone: Start: 09-25-2019 ARTERIAL BLOOD GAS, POC Erni Elaine Ludwig Work Phone: Start: 09-25-2019 LACTIC ACID,POINT OF CARE Erin Ludwig Work Phone: Start: 09-24-2019 ARTERIAL BLOOD GAS, POC ERIN LUDWIG Start: 09-24-2019 LACTIC ACID,POINT OF CARE ERIN LUDWIG Start: 09-24-2019 Blood gases any comb ination ph pco2 po2 co2 hco3 ERIN LUDWIG Start: 09-24-2019 POC BLOOD GAS AND CHEMISTRY ERIN LUDWIG Start: 09-24-2019 RESTRAINTS NON-VIOLE NT OR TEO-GIXE-ILPODHTZUMN ERIN LUDWIG Start: 09-24-2019 ARTERIAL BLOOD GAS, POC Erin Ludwig Work Phone: Start: 09-24-2019 LACTIC ACID,POINT OF CARE Erin Ludwig Work Phone: Start: 09-24-2019 Radiologic exam ches t single view ERIN LUDWIG Start: 09-24-2019 Radiologic exam ches t single [...] LUDWIG Start: 09-24-2019 Assay of lactate Nina Drew Work Phone: Start: 09-24-2019 BASIC METABOLIC PANE L W/ REFLEX TO MG FOR LOW K Nina Zaire Work Phone: Start: 09-24-2019 Blood count complete automated Nina Zaire Work Phone: Start: 09-24-2019 IMMATURE PLATELET FRACTION Nina Drew Work Phone: Start: 09-24-2019 Radex spine cervical 2 or 3 views ERIN OZIEL Start: 09-24-2019 Radex spine cervical 2 or 3 views Amna Mcgarry Work Phone: Start: 09-24-2019 End: 09-24-2019 CERVICAL LAMINECTOMY POSTERIOR Amna Melodymarcelo Work Phone: Start: 09-24-2019 IP CONSULT TO NEUROSURGERY ERIN LUDWIG Start: 09-23-2019 Mri spinal canal cer vical w/o contrast fide LUDWIG Start: 09-23-2019 Mri spinal canal lum bar w/o contrast material ERIN LUDWIG Start: 09-23-2019 Mri spinal canal tho racic w/o contrast matrl ERIN LUDWIG Start: 09-23-2019 Mri spinal canal cer vical w/o contrast matrl Mariam L Westhoven Work Phone: Start: 09-23-2019 Mri spinal canal lum bar w/o contrast material Mariam L Westhoven Work Phone: Start: 09-23-2019 Mri spinal canal tho racic w/o contrast matrl Mariam L Westhoven Work Phone: Start: 09-23-2019 Ct orbit sella/post fossa/ear w/o contrast matrl ERIN LUDWIG Start: 09-23-2019 Glucose blood reagent [...] LUDWIG Start: 09-23-2019 Assay of lactate ERIN LUDWIG Start: 09-23-2019 Assay of magnesium MAXWELL LUDWIG Start: 09-23-2019 Assay of phosphorus inorganic ERIN LUDWIG Start: 09-23-2019 Blood count complete auto&auto difrntl wbc ERIN LUDWIG Start: 09-23-2019 Calcium ionized ERIN M KalinaORE Start: 09-23-2019 Comprehensive metabolic panel ERIN LUDWIG Start: 09-23-2019 Hemoglobin glycosylated a1c ERIN LUDWIG Start: 09-23-2019 Radiologic exam ches t single view ERIN LUDWIG Start: 09-23-2019 Blood gases any comb ination ph pco2 po2 co2 hco3 ERIN LUDWIG Start: 09-23-2019 INCENTIVE SPIROMETRY NURSING ERIN OZIEL Start: 09-23-2019 ARTERIAL BLOOD GAS, POC Erin Elaine Ludwig Work Phone: Start: 09-23-2019 LACTIC ACID,POINT OF CARE Erin Avila Oziel Work Phone: Start: 09-23-2019 Assay of lactate Gianni Gasparis Work Phone: Start: 09-23-2019 Assay of magnesium Micheal Silveira Piedra Work Phone: Start: 09-23-2019 Assay of phosphorus inorganic Gianni Silveira Piedra Work Phone: Start: 09-23-2019 BASIC METABOLIC PANE L W/ REFLEX TO MG FOR LOW K Gianni Piedra Work Phone: Start: 09-23-2019 Blood count complete auto&auto difrntl wbc Gianni Erica Gasparis Work Phone: Start: 09-23-2019 Calcium ionized Gianni Piedra Work Phone: Start: 09-23-2019 Hemoglobin glycosylated a1c Gianni Erica Piedra Work Phone: Start: 09-23-2019 Radiologic exam ches t single view Gianni Piedra Work Phone: Start: 09-23-2019 INITIATE OXYGEN THER APY PROTOCOL ERIN LUDWIG Start: 09-23-2019 Blood gases any comb ination ph pco2 po2 co2 hco3 ERIN LUDWIG Start: 09-23-2019 ANION GAP (CALC) POC SERGIO LUDWIG Start: 09-23-2019 ARTERIAL BLOOD GAS, POC ERIN OZIEL Start: 09-23-2019 Blood count hemoglobin ERIN LUDWIG Start: 09-23-2019 Calcium ionized ERIN SRINIVASAN Start: 09-23-2019 Chloride other source A KERMIT [...] LUDWIG Start: 09-23-2019 NOTIFY PHYSICIAN (SPECIFY) ERIN OZIEL Start: 09-23-2019 OT EVAL AND TREAT ERIN LUDWIG Start: 09-23-2019 PLACE INTERMITTENT P NEUMATIC COMPRESSION DEVICE ERIN LUDWIG Start: 09-23-2019 PT EVAL AND TREAT ERIN LUDWIG Start: 09-23-2019 REASON FOR NO CHEMIC AL VTE PROPHYLAXIS ERIN OZIEL Start: 09-23-2019 RELAY SHOP SUPERVISOR EVAL AND TREAT MAXWELL LUDWIG Start: 09-23-2019 VITAL SIGNS ERIN Velarde Start: 09-23-2019 ELEVATE HOB ERIN Velarde Start: 09-23-2019 3d rendering w/inter p & postprocess supervision ERIN OZIEL Start: 09-23-2019 Ct lumbar spine w/o contrast material ERIN OZIEL Start: 09-23-2019 Ct thoracic spine w/ o contrast material ERIN OZIEL Start: 09-23-2019 Ct thorax w/contrast material ERIN OZIEL Start: 09-23-2019 ANION GAP (CALC) POC Sergio levi Elaine Ludwig Work Phone: Start: 09-23-2019 ARTERIAL BLOOD GAS, POC Erin Elaine Ludwig Work Phone: Start: 09-23-2019 Blood count hemoglobin Erin Ludwig Work Phone: Start: 09-23-2019 CALCIUM, IONIC (POC) Sergio Ludwig Work Phone: Start: 09-23-2019 Chloride [Moles/Vol] Sergio Ludwig Work Phone: Start: 09-23-2019 CREATININE W/GFR POI NT OF CARE Erin Ludwig Work Phone: Start: 09-23-2019 Gluc bld gluc mntr d ev cleared fda spec home use Erin Ludwig Work Phone: Start: 09-23-2019 LACTIC ACID,POINT OF CARE Erin Ludwig Work Phone: Start: 09-23-2019 Potassium [Moles/Vol] Omar kermit Elaine Ludwig Work Phone: Start: 09-23-2019 Sodium [Moles/Vol] Jacquelinekalina elaine Avila Ludwig Work Phone: Start: 09-23-2019 PATIENT STATUS (FROM ED OR OR/PROCEDURAL) ERIN LUDWIG Start: 09-23-2019 Ct cervical spine w/ o contrast material ERIN LUDWIG Start: 09-23-2019 Ct head/brain w/o co ntrast material ERIN LUDWIG Start: 09-23-2019 Ct maxillofacial w/o contrast material ERIN LUDWIG Start: 09-23-2019 Assay of ammonia Nina Drew Work Phone: Start: 09-23-2019 Drug screen class list a ERIN LUDWIG Start: 09-23-2019 Urinalysis microscopic only ERIN LUDWIG Start: 09-23-2019 Urnls dip stick/tabl et rgnt auto w/o microscopy ERIN LUDWIG Start: 09-23-2019 Radiologic exam ches t single view ERIN LUDWIG Start: 09-23-2019 Cell enumeration imm une selectj & id fluid spec ERIN LUDWIG Start: 09-23-2019 TYPE AND SCREEN ERIN Nguyen ZARINA Start: 09-23-2019 COVID-19 Nina Rit truong Work Phone: Start: 09-23-2019 Speech and language therapy regime Veronique Partida Work Phone: Start: 09-23-2019 Ct lumbar spine w/o contrast material Fdee Gibbons Work Phone: Start: 09-23-2019 Ct thoracic spine w/ o contrast material Fede Gibbons Work Phone: Start: 09-23-2019 Ct thorax w/contrast material Fede Gibbons Work Phone: Start: 09-23-2019 Antibody screen Claudia Torre Start: 09-23-2019 Ct cervical spine w/ o contrast material Feed Gibbons Work Phone: Start: 09-23-2019 Ct head/brain w/o co ntrast material Fede Gibbons Work Phone: Start: 09-23-2019 Ct maxillofacial w/o contrast material Fede Nelson Work Phone: Start: 09-23-2019 Drug screen class list a Fercho Torre Work Phone: Start: 09-23-2019 Urinalysis microscopic only Fercho Torre Work Phone: Start: 09-23-2019 Urnls dip stick/tabl et rgnt auto w/o microscopy Fercho Torre Work Phone: Start: 09-23-2019 Radiologic exam ches t single view Fede Nelson Work Phone: Start: 09-23-2019 Blood typing serologic abo Fercho Torre Work Phone: Start: 09-23-2019 TRAUMA PANEL Fercho Torre Work Phone: Plan of Treatment Date Care Activity Detail Author Start: 10-13-2025 DIABETES SCREEN DIABETES SCREEN [facility] Start: 10-13-2025 Diabetes Screening Diabetes Screening [facility] Start: 10-12-2025 DIABETES SCREEN DIABETES SCREEN [facility] Start: 10-11-2025 DIABETES SCREEN DIABETES SCREEN [facility] Start: 09-22-2025 DIABETES SCREEN DIABETES SCREEN [facility] Start: 08-11-2025 DIABETES SCREEN DIABETES SCREEN [facility] Start: 08-09-2025 DIABETES SCREEN DIABETES SCREEN [facility] Start: 08-02-2025 DIABETES SCREEN DIABETES SCREEN [facility] Start: 07-22-2025 DIABETES SCREEN DIABETES SCREEN [facility] Start: 11-27-2023 Influenza vaccination Influenza Vaccine (Season Ended) [facility] Start: 07-22-2023 Bacteria identified in Urine by Culture [facility] Start: 04-22-2023 Bacteria identified in Blood by Culture [facility] Start: 04-22-2023 Superficial Wound Culture Superficial Wound Culture [facility] Start: 04-19-2023 [facility] Start: 04-18-2023 Administration of prophylactic treatment [facility] Start: 04-15-2023 Referral to hospital personnel director [facility] Start: 04-15-2023 Hospital admission [facility] Start: 03-28-2023 Advance Directive Discussion Advance Directive Discussion [facility] Start: 03-28-2023 Behavioral Health Screening Behavioral Health Screening [facility] Start: 03-28-2023 Depression Assessment Depression Assessment [facility] Start: 03-22-2023 [facility] Start: 2023 Administration of prophylactic treatment [facility] Start: 2023 [facility] Start: 2023 Referral to infectious diseases physician [facility] Start: 2023 Hospital admission [facility] Start: 2023 [facility] Start: 03-14-2023 Bacteria identified in Urine by Culture [facility] Start: 02-06-2023 [facility] Start: 02-04-2023 Hospital admission [facility] Start: 02-04-2023 [facility] Start: 01-10-2023 End: 03-12-2023 Bacteria identified in Urine by Culture [facility] Work Phone: Comment on above: Expected: 01/10/2023, Expires: 3 Start: 11-26-2022 Covid-19 Vaccine (2022- season) Covid-19 Vaccine ( season) [facility] Start: 11-26-2022 Influenza vaccination [facility] Start: 03-28-2022 ADVANCE DIRECTIVE DISCUSSION ADVANCE DIRECTIVE DISCUSSION [facility] Start: 03-28-2022 DEPRESSION ASSESSMENT DEPRESSION ASSESSMENT [facility] Start: 09-22-2020 HbA1c (Bld) [Mass fraction] A1C test (Diabetic or Prediabetic) [place] Start: 2020 Pneumococcal Vaccine: 65+ (1 - PCV) Pneumococcal Vaccine: 65+ (1 - PCV) [facility] Start: 2020 Pneumococcal Vaccine: 65+ (1 of 1 - PCV) Pneumococcal Vaccine: 65+ (1 of 1 - PCV) [facility] Start: 2020 PNEUMOCOCCAL: 65+ (1 - PCV) PNEUMOCOCCAL: 65+ (1 - PCV) [facility] Start: 11-27-2019 Influenza vaccination Flu vaccine (#1) [place] Start: 2015 RSV Vaccine (1 - 1-dose 60+ series) RSV Vaccine (1 - 1-dose 60+ series) [facility] Start: 2010 PROSTATE CANCER SCREENING DISCUSSION PROSTATE CANCER SCREENING DISCUSSION [facility] Start: 2010 Prostate specific antigen measurement Prostate Cancer Screening Discussion [facility] Start: 2005 Screening for malignant neoplasm of colon Colon cancer screen colonoscopy [place] Start: 2005 Shingles Vaccine (1 of 2) Shingles Vaccine (1 of 2) [place] Start: 2005 SHINGRIX VACCINE (1 of 2) SHINGRIX VACCINE (1 of 2) [facility] Start: 2000 COLOGUARD (FIT-DNA) COLOGUARD (FIT-DNA) [facility] Start: 2000 Colonoscopy COLONOSCOPY [facility] Start: 2000 COLORECTAL CANCER SCREENING COLORECTAL CANCER SCREENING [facility] Start: [address] COLONOGRAPHY [facility] Start: 2000 FECAL OCCULT BLOOD FECAL OCCULT BLOOD [facility] Start: 2000 Screening for malignant neoplasm of colon [facility] Start: 2000 SIGMOIDOSCOPY SIGMOIDOSCOPY [facility] Start: 1995 Lipid panel Lipid screen [place] Start: 1990 Lipid 1996 panel - Serum or Plasma Lipid Screening [facility] Start: 1990 Lipid panel Lipid Screening [facility] Start: 1990 LIPID SCREEN LIPID SCREEN [facility] Start: 1974 DTaP/Tdap/Td vaccine (1 - Tdap) DTaP/Tdap/Td vaccine (1 - Tdap) [place] Start: 1974 Urine microalbumin profile [facility] Start: 1970 HIV screening HIV screen [place], [place] Start: 1955 COVID-19 VACCINE (#1) COVID-19 VACCINE (#1) [facility] Start: 1955 Hepatitis C screening Hepatitis C screen [place] Acapella Acapella Respira tory Care Routine Daily until discontinued starting 09/27/2019 [place] Comment on above: Daily until discontinued starting 2019 Bacteria identified in Unspecified specimen by Aerobe culture [facility] Bacteria identified in Urine by Culture [facility] CATHETER INSERT-HERNANDEZ CATHETER I NSERT-HERNANDEZ Procedures Routine Neurogenic bladder Ordered: 01/09/2023 [facility] Work Phone: Comment on above: Ordered: 01/09/2023 Change cystostomy tu be simple IR SUPRAPUBIC TUBE EXCHANGE Radiology Routine Neurogenic bladder Ordered: 11/25/2022 [facility] Work Phone: Comment on above: Ordered: 11/25/2022 End: 09-23-[address] 3D RECONSTRUCTION Imaging Routine Once for 1 Occurrences starting 09/23/2019 until 09/23/2019 [facility] Comment on above: Once for 1 Occurrences starting 09/23/19 20 until 09/23/[address] 3D RECON STRUCTION Imaging STAT 09/23/2019 2:14 AM EDT [facility] End: 10-01-2023 Ct abdomen & pelvis w/o contrast material CT FLANK WO IVCON Radiology Routine Calculus of kidney 1 Occurrences starting 09/01/2022 until 10/01/2023 [facility] Work Phone: Comment on above: 1 Occurrences starting 09/01/2022 until 10/01/2023 HERNANDEZ - DISCONTINUE HERNANDEZ - DISC ONTINUE Procedures Routine Neurogenic bladder Ordered: 08/05/2023 [facility] Work Phone: Comment on above: Ordered: 08/05/2023 HERNANDEZ CHANGE HERNANDEZ CHANGE Pro cedures Routine Neurogenic bladder Quadriplegia (HCC) History of spinal cord injury Ordered: 03/02/2023 [facility] Work Phone: Comment on above: Ordered: 03/02/2023 HHN Treatment HHN Treatment Respiratory Care STAT 4X Daily until discontinued starting 09/25/2019 [facility] Comment on above: 4X Daily until discontinued starting Incentive spirometry RT Incentiv e spirometry RT Respiratory Care Routine Every 2hr while awake until discontinued [facility] above: Every 2hr while awake until discontinued starting 09/27/2019 Initiate Oxygen Ther apy Protocol Initiate Oxygen Therapy Protocol Respiratory Care Routine Daily until discontinued starting 09/23/2019 [facility] [place] Comment on above: Daily until discontinued starting 2019 IR CENTRAL LINE REMOVAL IR CENTR AL LINE REMOVAL Radiology Routine Pyelonephritis Ordered: 10/05/2022 [facility] Work Phone: Comment on above: Ordered: 10/05/[address] IR NEP HROSTOMY TUBE PLACE Radiology Routine Nephrolithiasis Quadriplegia (HCC) Ordered: 09/09/2022 [facility] Work Phone: Comment on above: Ordered: 09/09/2022 Patient Education [facility] Work Phone: Patient referral [facility] Work Phone: End: 11-26-2023 Radiologic exam abdomen 3+ views XR ABDOMEN 3V KUB W/OBLIQUES Radiology Routine Nephrolithiasis Neurogenic bladder Encounter for care or replacement of suprapubic tube (HCC) 1 Occurrences starting 10/27/2022 until 11/26/2023 [facility] Work Phone: Comment on above: 1 Occurrences starting 10/27/2022 until 11/26/2023 End: 01-15-2024 Radiologic exam abdomen 3+ views XR ABDOMEN 3V KUB W/OBLIQUES Radiology Routine Nephrolithiasis 1 Occurrences starting 12/16/2022 until 01/15/2024 [facility] Work Phone: Comment on above: 1 Occurrences starting 12/16/2022 until 01/15/2024 URINALYSIS, REFLEX MICROSCOPIC URINALYSIS, REFLEX MICROSCOPIC Lab Routine Screening for genitourinary condition Ordered: 12/16/2022 [facility] Work Phone: Comment on above: Ordered: 12/16/2022 End: 11-26-2023 US KIDNEY/BLADDER US KIDNEY/BLADDER Radiology Routine Nephrolithiasis Neurogenic bladder Encounter for care or replacement of suprapubic tube (HCC) 1 Occurrences starting 10/27/2022 until 11/26/2023 [facility] Work Phone: Comment on above: 1 Occurrences starting 10/27/2022 until 11/26/2023 End: 01-16-2024 US KIDNEY/BLADDER US KIDNEY/BLADDER Radiology Routine Nephrolithiasis 1 Occurrences starting 12/16/2022 until 01/16/2024 [facility] Work Phone: Comment on above: 1 Occurrences starting 12/16/2022 until 01/16/2024 End: 11-12-2023 XR ABDOMEN 1V SUPINE XR ABDOMEN 1V SUPINE Radiology Routine Nephrolithiasis 1 Occurrences starting 10/13/2022 until 11/12/2023 [facility] Work Phone: Comment on above: 1 Occurrences starting 10/13/2022 until 11/12/2023 [facility] Payers Date Payer Category Payer Private Health Insurance [id number] 2022 Self-pay [id number] 2021 Medicaid MEDICAID [facility] MEDICAID [id number] 2021-Present [phone] [address] [place] [address] Medicaid [id number] 2020 Medicare [id number] 2019 Unknown [id number] 2019 Unknown GENERIC AUTO INS URANCE GENERIC AUTO INSURANCE [id number] 2019-Present 2017 Unknown [id number] 2017 Unknown BCBS BCBS OUT OF STATE [id number] 2017-Present [address] [place] [address] [id number]. [id number] 1959 Medicaid [id number] [id number] 1959 Medicare [id number] 2.16.840.1.846892.19 1955 Unknown [id number] 2.16.840.1.276935.3.579.2. 175 1955 Unknown [id number] 2.16.840.1.592982.3.579.2. 727 1955 Unknown [id number] 2.16.840.1.837186.3.579.2. 593 1955 Unknown [id number] 2.16.840.1.036692.3.579.2. 593 1955 Unknown [id number] 2.16.840.1.347541.3.579.2. 593 1955 Unknown [id number] 2.16.840.1.615407.3.579.2. 593 1955 Unknown [id number] 2.16.840.1.269232.3.579.2. 593 1955 Unknown [id number] 2.16.840.1.360773.3.579.2. 593 1955 Unknown [id number] 2.16.840.1.984654.3.579.2. 593 1955 Unknown [id number] 2.16.840.1.769456.3.579.2. 593 1955 Unknown [id number] 2.16.840.1.042081.3.579.2. 593 1955 Unknown [id number] 2.16.840.1.531035.3.579.2. 593 1955 Unknown [id number] 2.16.840.1.392341.3.579.2. 593 1955 Unknown [id number] 2.16.840.1.115517.3.579.2. 593 Unknown [id number] 2.16.840.1.268006.3.579.2. 531 Unknown [id number] 2.16.840.1.078091.3.579.2. 531 Unknown [id number] 2.16.840.1.557812.3.579.2. 531 Unknown [id number] 2.16.840.1.231572.3.579.2. 531 Unknown [id number] 2.16.840.1.827730.3.579.2. 531 Unknown [id number] 2.16.840.1.091358.3.579.2. 531 Unknown [id number] 2.16.840.1.222363.3.579.2. 531 Unknown [id number] 2.16.840.1.076006.3.579.2. 531 Unknown [id number] 2.16.840.1.994252.3.579.2. 531 Unknown [id number] 2.16.840.1.815074.3.579.2. 531 Unknown [id number] 2.16.840.1.677142.3.579.2. 531 Social History Date Type Detail Facility Start: 09-25-2019 End: 10-13-2019 Tobacco smoking status PRIS Unknown if ever smoked [facility] Start: 09-25-2019 Alcohol intake Current drinke r of alcohol (finding) [place] Start: 09-23-2019 Alcohol Comment unable to asses [place], [place] Start: 1955 Sex Assigned At Not on file M [place], [place] Exposure to SARS-CoV -2 (event) Unable to assess [place] Start: 07-23-2022 End: 09-01-2022 Sex Assigned At [facility] Start: 07-15-2021 End: 07-22-2023 Tobacco smoking status NHIS Smoker (finding) [facility] Start: 1955 Sex Assigned At Male F [facility] Start: 07-23-2022 End: 08-06-2022 Alcohol intake Ex-drinker (finding) [facility] Start: 07-23-2022 History SDOH Financial 5 [facility] Start: 07-23-2022 History SDOH Food Worry 1 [facility] Start: 07-23-2022 History SDOH Transpo rt Med 2 [facility] Start: 07-23-2022 End: 09-01-2022 History of Social function [facility] How hard is it for y ou to pay for the very basics like food, housing, medical care, and heating Not hard at all [facility] (I/We) worried wheth er (my/our) food would run out before (I/we) got money to buy more. Never true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 the Federal Confidentiality of Alcohol and Drug Abuse Patient Records regulations: The Federal rules restrict any use of the information to criminally investigate or prosecute any alcohol or drug abuse patient.[facility]In the event this information is protected by the Federal Confidentiality of Alcohol and Drug Abuse Patient Records regulations: The Federal rules restrict any use of the information to criminally investigate or prosecute any alcohol or drug abuse patient.[facility]In the event this information is protected by the Federal Confidentiality of Alcohol and Drug Abuse Patient Records regulations: The Federal rules restrict any use of the information to criminally investigate or prosecute any alcohol or drug abuse patient.[facility]In the event this information is protected by the Federal Confidentiality of Alcohol and Drug Abuse Patient Records regulations: The Federal rules restrict any use of the information to criminally investigate or prosecute any alcohol or drug abuse patient.[facility]In the event this information is protected by the Federal Confidentiality of Alcohol and Drug Abuse Patient Records regulations: The Federal rules restrict any use of the information to criminally investigate or prosecute any alcohol or drug abuse patient.[facility]In the event this information is protected by the Federal Confidentiality of Alcohol and Drug Abuse Patient Records regulations: The Federal rules restrict any use of the information to criminally investigate or prosecute any alcohol or drug abuse patient.[facility]In the event this information is protected by the Federal Confidentiality of Alcohol and Drug Abuse Patient Records regulations: The Federal rules restrict any use of the information to criminally investigate or prosecute any alcohol or drug abuse patient.[facility]In the event this information is protected by the Federal Confidentiality of Alcohol and Drug Abuse Patient Records regulations: The Federal rules restrict any use of the information to criminally investigate or prosecute any alcohol or drug abuse patient.[facility]In the event this information is protected by the Federal Confidentiality of Alcohol and Drug Abuse Patient Records regulations: The Federal rules restrict any use of the information to criminally investigate or prosecute any alcohol or drug abuse patient.[facility]In the event this information is protected by the Federal Confidentiality of Alcohol and Drug Abuse Patient Records regulations: The Federal rules restrict any use of the information to criminally investigate or prosecute any alcohol or drug abuse patient.[facility] HospitalIn the event this information is protected by the Federal Confidentiality of Alcohol and Drug Abuse Patient Records regulations: The Federal rules restrict any use of the information to criminally investigate or prosecute any alcohol or drug abuse patient.[facility] HospitalIn the event this information is protected by the Federal Confidentiality of Alcohol and Drug Abuse Patient Records regulations: The Federal rules restrict any use of the information to criminally investigate or prosecute any alcohol or drug abuse patient.[facility]In the event this information is protected by the Federal Confidentiality of Alcohol and Drug Abuse Patient Records regulations: The Federal rules restrict any use of the information to criminally investigate or prosecute any alcohol or drug abuse patient.[facility] HospitalIn the event this information is protected by the Federal Confidentiality of Alcohol and Drug Abuse Patient Records regulations: The Federal rules restrict any use of the information to criminally investigate or prosecute any alcohol or drug abuse patient.[facility] HospitalIn the event this information is protected by the Federal Confidentiality of Alcohol and Drug Abuse Patient Records regulations: The Federal rules restrict any use of the information to criminally investigate or prosecute any alcohol or drug abuse patient.[facility] HospitalIn the event this information is protected by the Federal Confidentiality of Alcohol and Drug Abuse Patient Records regulations: The Federal rules restrict any use of the information to criminally investigate or prosecute any alcohol or drug abuse patient.[facility] HospitalIn the event this information is protected by the Federal Confidentiality of Alcohol and Drug Abuse Patient Records regulations: The Federal rules restrict any use of the information to criminally investigate or prosecute any alcohol or drug abuse patient.[facility] FOR RECORDS PERTAINING TO PATIENTS [...] BE BASED ON THE PRIMARY CLINICAL RECORDS. [facility] [employer] [facility]. provides no warranty or guarantee of the accuracy or completeness of information in this document.
[2023-09-06 02:46] LABS: Bilirubin Urine NEGATIVE (NEGATIVE); Blood Urine MODERATE (NEGATIVE); Clarity Urine CLEAR (CLEAR); Color Urine YELLOW (YELLOW); Glucose Urine UA NEGATIVE (NEGATIVE); Ketones Urine TRACE mg/dL (NEGATIVE); Leukocyte Esterase Urine LARGE (NEGATIVE); Nitrite Urine NEGATIVE (NEGATIVE); Protein Urine 30 mg/dL (NEG/TRACE); pH Urine 6.5 (5.0-9.0)
[2023-09-06 02:57] LABS: Bacteria Urine LARGE #/HPF (NONE SEEN); Calcium Oxalate Crystals Urine MODERATE; Cast Seen? NONE SEEN #/LPF (NONE SEEN); Crystals Seen? Seen #/HPF (None Seen); Mucus Urine NONE SEEN (NONE SEEN); RBC Urine 0-2 #/HPF (0-2); Squamous Epithelial Cell Urine RARE #/LPF (NONE/RARE); Transitional Epi Cells Urine FEW #/LPF (NONE SEEN); Uric Acid Crystals Urine FEW; Urine Culture Indicated YES
[2023-09-06 03:11] LABS: Basophils Absolute Auto 0.1 10^3/uL (0.0-0.1); Basophils Percent Auto 1.2 % (0.2-2.0); Eosinophils Absolute Auto 0.3 10^3/uL (0.0-0.7); Hematocrit 40.9 % (42.0-54.0); Hemoglobin 13.1 g/dL (14.0-18.0); Immature Granulocytes Abs Auto 0.01 10^3/uL (0.00-0.03); Immature Granulocytes Pct Auto 0.2 % (0.0-0.5); Lymphocytes Absolute Auto 2.5 10^3/uL (1.2-3.8); Lymphocytes Percent Auto 48.3 % (20.5-60.0); Mean Corpuscular Hemoglobin 27.9 pg (25.9-34.0); Monocytes Absolute Auto 0.4 10^3/uL (0.3-0.8); Monocytes Percent Auto 8.1 % (1.7-12.0); Neutrophils Absolute Auto 1.9 10^3/uL (1.4-6.5); Neutrophils Percent Auto 36.2 % (43.0-75.0); Platelet Count 260 10^3/uL (150-450); Red Cell Distribution Width 13.7 % (11.0-15.0); White Blood Count 5.2 10^3/uL (4.0-11.0)
[2023-09-06 03:23] LABS: Anion Gap 9.2; BUN Creatinine Ratio 16.7; Calcium 9.2 mg/dL (8.5-10.1); Carbon Dioxide 26.8 mmol/L (21.0-32.0); Chloride 104 mmol/L (98-107); Estimated GFR (African America >60 (>=60); Estimated GFR (Non-African Ame >60 (>=60); Glucose 91 mg/dL (74-106); Sodium 136 mmol/L (136-145)
[2023-09-06 03:28] LABS: Lactate/Lactic Acid 1.3 mmol/L (0.4-2.0)
[2023-09-06] MEDS: ERTAPENEM SODIUM 1 GM in 0.9 % SODIUM CHLORIDE 50 ML IV (03:34)
--- OUTSIDE RECORDS SUMMARY | 2023-09-06 04:17 | XMS_ITS | CCD ---
Author Organization [facility] Inform ion [facility] Care Team Providers Care Plush Weaver Name Role Phone ERIN LUDWIG Admitting Unavailable [...] DR GUO LISTED Primary Care Unavaila ble SRTICKLAND ., DR THOMAS Admitting Unavailable MARCO A [...] BELINDA Consulting Unavailable JUDI Marino Attending Provider [phone] DO Marbella Foleya Omar Primary Care Provider DO Jun Gaona Emergency Provider JUDI Marino Attending Provider DO Marbella Foleya Omar Primary Care Provider [phone] DO Jun Gaona Emergency Provider DO Christin Manzanares Emergency Provider MD Magdaleno Paige Admit Provider MD Magdaleno Paige Attending Provider MD Ghulam Betancourt Wendy Attending Provider [phone] [facility] Ana RIDDLE Primary Care Provider DO Marbella Foleya Omar Primary Care Provider [phone] JUDI Marino Attending Provider [phone] DO William Carver Emergency Provider [phone] DORIS Alberto Emergency Provider DO Jim Arcos Admit Provider DO Jim Arcos Other Provider [phone] MD Zeinab Poole Attending Provider JUDI Barrett Attending Provider JUDI Boone Emergency Provider [phone] Foley Ana A Primary Care Provider JUDI Marino Attending Provider DO Danial Gould Emergency Provider Foley DO, Ana Veronica Primary Care Provider [phone] FOLEY, ANA VERONICA Primary Care Unavailable DUARTE, [...] Consulting Unavailable Joaquin Eduardo Consulting Unavailable Zacarias Adames Consulting Unavailable Luther Beatty Consulting Unavailable Asaad, [...] Start: 01-25-2023 Bisacodyl A ctive 10 MG MN Daily February 04, 2023 1:00am Start: 09-24-2019 [...] th DAILY (6 AM). polyethylene glycol 3350 05678 mg powder for oral solution (20 sources) [...] on above: Take 2 Packets by [facility] twice daily with meals for 7 days. [...] Active [facility] daily at bedtime as needed Senna [...] at bedtime March 23, 2020 12:00am sennosides, shelter 8.6 mg oral capsule (20 sources) Sennosides [...] 19-7 gram/118 mL enema Active 118 ML MN Daily 532 July 15, 2023 12:00am tamsulosin [...] Comment on above: Take 1 capsule by [facility] once daily. Stop two days after [...] 01, 2023 12:00am take 1 capsule by [facility] every twenty-four hours Zinc 220 (50 [...] Three times a day for 90 days [facility] Jan, Active Start: 02-06-2023 End: 03-22-2023 take [...] (Bisacodyl)) 10 mg suppository Discontinued 10 MG MN Daily July 15, 2023 12:00am July 22, [...] mg/ml ophthalmic solution (8 sources) Plasma Volume [facility] Artificial Tears 0.1-0.3 % as directed Ophthalmic PRN Not-Taking/PRN doxycycline hyclate 100 mg oral capsule (20 sources) Tetracycline-cla ss Drug Start: 04-22-2023 take 1 capsule by mouth every twelve hours Doxycycline Hyclate 100 MG 1 capsule Orally Twice a day [facility] Mar, Not-Taking/PRN Start: 04-22-2023 take 100 mg [...] 0 10-03-2019 Episodic Other aftercare (4 sources) detention (current) use of antibiotics; Translations: [RETIREMENT CURRENT USE ANTIBIOTICS] Onset: 3 Episodic Other aftercare (1 source) Other retirement (current) drug therapy; Translations: [OTH [employer] ESTATE CURRENT DRUG THERAPY] Onset: 3 Episodic Other [...] Test Name Value Interpretation Reference Range [facility] C[facility] Normal [facility] Alanine aminotransferase [En zymatic activity/volume] in Serum or PlasmaOrdered By: Danial Gould on 07-22-2023 ALT [Catalytic activity/Vol] 9 U/L Normal 7-52 [facility] Comment on above: Performed By: #### C UU, ADDONUAPLUS #### [facility] [address] Albumin [Mass/volume] in Ser um or Plasma by Bromocresol green (BCG) dye binding methoOrdered By: Danial Gould on 07-22-2023 Albumin BCG dye [Mass/Vol] 3.9 g/dL 3.5-5.7 [facility] Alkaline phosphatase [Enzyma tic activity/volume] in Serum or PlasmaOrdered By: Danial Gould on 07-22-2023 ALP [Catalytic activity/Vol] 65 U/L Normal 34-104 [facility] Comment on above: Performed By: #### C UU, ADDONUAPLUS #### [facility] [address] Amorphous urine sedimentOrde red By: Danial Gould on 07-22-2023 Amorphous sediment LM Ql (Urine sed) Rare [LPF] [facility] Aspartate aminotransferase [ Enzymatic activity/volume] in Serum or PlasmaOrdered By: Danial Gould on 07-22-2023 AST [Catalytic activity/Vol] 15 U/L Normal 13-39 [facility] Comment on above: Performed By: #### C UU, ADDONUAPLUS #### [address] Automated basophil %Ordered By: Danial Gould on 07-22-2023 Basophils/100 WBC (Bld) 1.0 % Normal . [facility] Comment on above: Performed By: #### C BC, BMP #### [address] Automated basophil countOrde red By: Danial Gould on 07-22-2023 Basophils (Bld) [#/Vol] 0.0 10*3/uL Normal 0.0-0.2 [facility] Comment on above: Result Comment: PERF ORMED BY: [place] [address] PATHOLOGIST NAMED ACCOUNT EXECUTIVE RENETTA MONACO M.D. Performed By: #### C BC, BMP #### [address] Automated blood monocyte cou ntOrdered By: Danial Gould on 07-22-2023 Monocytes (Bld) [#/Vol] 0.5 10*3/uL Normal 0.0-0.8 [facility] Comment on above: Performed By: #### C BC, BMP #### [address] Automated eosinophil %Ordere d By: Danial Gould on 07-22-2023 Eosinophils/100 WBC (Bld) 6.4 % Normal . [facility] Comment on above: Performed By: #### C BC, BMP #### [address] Automated eosinophil countOr dered By: Danial Gould on 07-22-2023 Eosinophils (Bld) [#/Vol] 0.3 10*3/uL Normal 0.0-0.45 [facility] Comment on above: Performed By: #### C BC, BMP #### [address] Automated erythrocytes count in urine sediment (number/area)Ordered By: Danial Gould on 07-22-2023 RBC Auto (Urine sed) [#/Area] Innumerable [HPF] 0-4 [facility] Automated leukocytes count i n urine sediment (number/area)Ordered By: Danial Gould on 07-22-2023 WBC Auto (Urine sed) [#/Area] Innumerable [HPF] 0-4 [facility] Automated monocyte %Ordered By: Danial Gould on 07-22-2023 Monocytes/100 WBC (Bld) 12.1 % Normal . [facility] Comment on above: Performed By: #### C BC, BMP #### [facility] [address] Automated neutrophil %Ordere d By: Danial Gould on 07-22-2023 Neutrophils/100 WBC (Bld) 42.8 % Normal . [facility] Comment on above: Performed By: #### C BC, BMP #### [address] Automated urine color determ inationOrdered By: Danial Gould on 07-22-2023 Color (U) Lee Critically abnormal Yellow [facility] Comment on above: Order Comment: Name Collection Type:: Hernandez Catheter Performed By: #### C BC, BMP #### [address] Bilirubin Test strip Ql (U)O rdered By: Danial Gould on 07-22-2023 Bilirubin Ql (U) Negative Negative [facility] Bilirubin.total [Mass/volume ] in Serum or PlasmaOrdered By: Danial Gould on 07-22-2023 Bilirubin [Mass/Vol] 0.3 mg/dL Normal 0.3-1.0 [facility] Comment on above: Performed By: #### C UU, ADDONUAPLUS #### [facility] [address] [place] [address] CT abdomen pelvis wo conon 0 07-22-2023 CT abdomen pelvis wo [facility] [place] [address] [place] [address] CT Scan Report Signed Patient: Lately,Fede Drew Sr MR#: [id number] : 1955 Acct:[id number] Age/Sex: 68 / M ADM Date: 07/22/23 Loc: ER Room: Type: [facility] ER Attending Dr: Copies to: Danial Gould [...] Erika Pitts M.D.07/22/2023 7:49 PM Dictation Location: [place] [address] Transcribed By: [facility] 07/22/231948 Dictated By: Erika Pitts II, MD 07/22/231941 Signed By: 07/22/231948 Normal [facility] Calcium [Mass/volume] in Ser um or PlasmaOrdered By: Danial Gould on 07-22-2023 Calcium [Mass/Vol] 9.3 mg/dL Normal 8.6-10.3 [facility] Comment on above: Performed By: #### C EDILSON ROBLEDOPLUS #### [address] Carbon dioxide, total [Moles /volume] in Serum or PlasmaOrdered By: Danial Gould on 07-22-2023 CO2 [Moles/Vol] 24.7 mmol/L Normal 21.0-31.0 [facility] Comment on above: Performed By: #### C GUSTAVO ROBLEDOONRENZOPLUS #### [address] Chloride [Moles/volume] in S jennifer or PlasmaOrdered By: Danial Gould on 07-22-2023 Chloride [Moles/Vol] 108 mmol/L High 98-107 [facility] Comment on above: Performed By: #### C EDILSON ROBLEDOPLUS #### [facility] [address] [place] [address] Complete Blood Count Auto Di ffon 07-22-2023 Mean Corpuscular HGB Conc 33.2 g/dL Normal 32.5-35.[address] [facility] Comment on above: Performed By: #### C BC BMP #### [address] Monocytes/100 WBC (Bld) 19.05 % Normal 0.00-20.[address] [facility] Comment on above: Performed By: #### C BC BMP #### [place] [address] [place] NRBC% 0.1 /100{WBC} Normal 0-0.5 [facility] Comment on above: Performed By: #### C BC, BMP #### [address] Comprehensive Metabolic Pane kimberly 07-22-2023 Albumin [Mass/Vol] 3.9 g/dL Normal 3.5-5.7 [facility] Comment on above: Performed By: #### C UU, ADDONUAPLUS #### [place] [address] [place] Creatinine Clr Calc Pharmacy 84.[address] [facility] Comment on above: Performed By: #### C UU, ADDONUAPLUS #### [place] [address] [place] GFR/1.73 sq M.predicted MDRD (S/P/Bld) [Vol rate/Area] mL/min/{1.73_m2} Normal [facility] Comment on above: Performed By: #### C UU, ADDONUAPLUS #### [address] Creatinine [Mass/volume] in Serum or PlasmaOrdered By: Danial Gould on 07-22-2023 Creatinine [Mass/Vol] 0.86 mg/dL Normal 0.70-1.30 [facility] Comment on above: Performed By: #### C UU, ADDONUAPLUS #### [place] [address] [place] Dipstick and Microscopicon 0 07-22-2023 Amorphous Sediment,Urine Rare Normal [facility] Comment on above: Order Comment: Name Collection Type:: Hernandez Catheter Performed By: #### C BC, BMP #### [address] Appearance (U) Turbid Critically abnormal Clear [facility] Comment on above: Order Comment: Name Collection Type:: Hernandez Catheter Performed By: #### C BC, BMP #### [place] [address] [place] Bacteria,Urine 2+ High None Seen [facility] Comment on above: Order Comment: Name Collection Type:: Hernandez Catheter Performed By: #### C BC, BMP #### [place] [address] [place] Bilirubin,Urine Negative Normal Negative [facility] Comment on above: Order Comment: Name Collection Type:: Hernandez Catheter Performed By: #### C BC, BMP #### [place] [address] [place] Glucose Ql (U) Normal Normal Normal [facility] Comment on above: Order Comment: Name Collection Type:: Hernandez Catheter Performed By: #### C BC, BMP #### [address] Hyaline Casts,Urine 0-1 Normal 0-8 [facility] Comment on above: Order Comment: Name Collection Type:: Hernandez Catheter Result Comment: PERF ORMED BY: [place] [address] PATHOLOGIST NAMED ACCOUNT EXECUTIVE RENETTA MONACO M.D. Performed By: #### C BC, BMP #### [address] Ketones Ql (U) Negative Normal Negative [facility] Comment on above: Order Comment: Name Collection Type:: Hernandez Catheter Performed By: #### C BC, BMP #### [place] [address] [place] Leukocyte esterase Test strip Ql (U) 4+ High Negative [facility] Comment on above: Order Comment: Name Collection Type:: Hernandez Catheter Performed By: #### C BC, BMP #### [place] [address] [place] Nitrite,Urine Positive High Negative [facility] Comment on above: Order Comment: Name Collection Type:: Hernandez Catheter Performed By: #### C BC, BMP #### [place] [address] [place] Occult Blood,Urine 3+ High Negative [facility] Comment on above: Order Comment: Name Collection Type:: Hernandez Catheter Result Comment: PERF ORMED BY: [place] [address] PATHOLOGIST NAMED ACCOUNT EXECUTIVE RENETTA MONACO M.D. Performed By: #### C BC, BMP #### [place] [address] [place] RBC,Urine Innumerable High 0-[address] [facility] Comment on above: Order Comment: Name Collection Type:: Hernandez Catheter Performed By: #### C BC, BMP #### [place] [address] [place] Specificy Merkel,Urine 1.023 Normal 1.001-1.[address] [facility] Comment on above: Order Comment: Name Collection Type:: Hernandez Catheter Performed By: #### C BC, BMP #### [address] Squamous Epithelial Cell,Urine 0-1 Normal 0-[address] [facility] Comment on above: Order Comment: Name Collection Type:: Hernandez Catheter Performed By: #### C BC, BMP #### [place] [address] [place] Urobilinogen,Urine Normal Normal Normal [facility] Comment on above: Order Comment: Name Collection Type:: Hernandez Catheter Performed By: #### C BC, BMP #### [place] [address] [place] WBC,Urine Innumerable High 0-[address] [facility] Comment on above: Order Comment: Name Collection Type:: Hernandez Catheter Performed By: #### C BC, BMP #### [place] [address] [place] ECG 12 lead ECGon 07-22-2023 ECG 12 lead ECG [facility] [place] [address] Electrocardiograph Report Signed Patient: Fede Guerra Sr MR#: [id number] : 1955 Acct:[id number] Age/Sex: 68 / M ADM Date: 07/22/23 [...] Lateral leads Confirmed by DANIAL GOULD DO ([id number]) on 07/23/2023 1:23:31 AM Referred By: Electronically Signed By:DANIAL GOULD DO Transcribed By: MUS Signed By Danial Gould DO 07/[address] [facility] Erythrocyte distribution wid th [Ratio] by Automated countOrdered By: Danial Gould on 07-22-2023 Erythrocyte distribution width (RBC) [Ratio] 14.7 % Normal 12.0-14.8 [facility] Comment on above: Performed By: #### C PETEY, BMP #### [facility] [address] Erythrocytes [#/volume] in B lood by Automated countOrdered By: Danial Gould on 07-22-2023 RBC (Bld) [#/Vol] 4.55 10*6/uL Normal 3.90-5.60 [facility] Comment on above: Performed By: #### C PETEY, BMP #### [facility] [address] Glucose [Mass/volume] in Ser um or PlasmaOrdered By: Danial Gould on 07-22-2023 Glucose [Mass/Vol] 125 mg/dL High 70-100 [facility] Comment on above: ADA recommended refe rence rangeRandom Glucose Reference Range is dependent on time and content of last meal. Glucose of more than 200 mg/dL in a nonstressed, ambulatory subject supports the diagnosis of Diabetes Mellitus. Result Comment: [place] om Glucose Reference Range is dependent on time and content of last meal. Glucose of more than 200 mg/dL in a nonstressed, ambulatory subject supports the diagnosis of Diabetes Mellitus. ADA recommended reference range Performed By: #### C UU, ADDONUAPLUS #### [address] Hematocrit [Volume Fraction] of Blood by Automated countOrdered By: Danial Gould on 07-22-2023 Hematocrit (Bld) [Volume fraction] 38.9 % Normal 38.8-50.0 [facility] Comment on above: Performed By: #### C BC, BMP #### [address] Hemoglobin [Mass/volume] in BloodOrdered By: Danial Gould on 07-22-2023 Hemoglobin (Bld) [Mass/Vol] 12.9 g/dL Low 13.0-17.0 [facility] Comment on above: Performed By: #### C BC, BMP #### [address] Ketones Auto test strip (U) [Mass/Vol]Ordered By: Danial Gould on 07-22-2023 Ketones (U) [Mass/Vol] Negative Negative [facility] - UrinalysisOrder ed By: Danial Gould on 07-22-2023 Hyaline casts LM Ql (Urine sed) 0-1 [LPF] 0-8 [facility] Leukocytes [#/volume] correc mayte for nucleated erythrocytes in Blood by Automated counOrdered By: Danial Gould on 07-22-2023 WBC corrected for nucl RBC Auto (Bld) [#/Vol] 4.1 10*3/uL 4.1-10.5 [facility] Leukocytes [#/volume] in Blo od by Automated countOrdered By: Danial Gould on 07-22-2023 WBC (Bld) [#/Vol] 4.1 10*3/uL Normal 4.1-10.5 [facility] Comment on above: Performed By: #### C BC, BMP #### [address] Lipase [Enzymatic activity/v olume] in Serum or PlasmaOrdered By: Danial Gould on 07-22-2023 Lipase [Catalytic activity/Vol] 24.0 U/L Normal 11.0-82.0 [facility] Comment on above: Result Comment: PERF ORMED BY: [place] [address] PATHOLOGIST NAMED ACCOUNT EXECUTIVE RENETTA MONACO M.D. Performed By: #### C UU, ADDONUAPLUS #### [address] Lymphocytes [#/volume] in Bl ood by Automated countOrdered By: Danial Gould on 07-22-2023 Lymphocytes (Bld) [#/Vol] 1.5 10*3/uL Normal 1.00-4.8 [facility] Comment on above: Performed By: #### C BC, BMP #### [address] Lymphocytes/100 leukocytes i n Blood by Automated countOrdered By: Danial Gould on 07-22-2023 Lymphocytes/100 WBC (Bld) 37.7 % Normal . [facility] Comment on above: Performed By: #### C BC, BMP #### [address] MCH [Entitic mass] by Automa mayte countOrdered By: Danial Gould on 07-22-2023 MCH (RBC) [Entitic mass] 28.4 pg Normal 27.5-35.2 [facility] Comment on above: Performed By: #### C BC, BMP #### [address] MCHC Auto (RBC) [Mass/Vol]Or dered By: Danial Gould on 07-22-2023 MCHC (RBC) [Mass/Vol] 33.2 g/dL 32.5-35.6 [facility] MCV [Entitic volume] by Auto mated countOrdered By: Danial Gould on 07-22-2023 MCV (RBC) [Entitic vol] 85.4 fL Normal 83.5-101 F [facility] Comment on above: Performed By: #### C BC, BMP #### [address] [place] [address] [place] Monocyte distribution width [Entitic volume] in Blood by AutomatedOrdered By: Danial Gould on 07-22-2023 Monocyte distribution width Auto (Bld) [Entitic vol] 19.05 % 0.00-20.00 [facility] Neutrophils [#/volume] in Bl ood by Automated countOrdered By: Danial Gould on 07-22-2023 Neutrophils (Bld) [#/Vol] 1.8 10*3/uL Normal 1.8-7.7 [facility] Comment on above: Performed By: #### C BC, BMP #### [facility] [address] Nitrite Test strip Ql (U)Ord ered By: Danial Gould on 07-22-2023 Nitrite Ql (U) Positive Negative [facility] No Panel InformationOrdered By: Dainal Gould on 07-22-2023 Estimated GFR (CKD-EPI) > 60.0 mL/Min [facility] Creatinine Clearance (Chem 84.39 [facility] Nucleated erythrocytes [Pres ence] in Blood by Automated countOrdered By: Danial Gould on 07-22-2023 Nucleated RBC Auto Ql (Bld) 0.1 /100{WBC} 0-0.5 [facility] Platelet mean volume [Entiti c volume] in Blood by Automated countOrdered By: Danial Gould on 07-22-2023 Platelet mean volume (Bld) [Entitic vol] 8.0 fL Normal 6.6-10.1 [facility] Comment on above: Performed By: #### C PETEY, BMP #### [facility] [address] [place] [id number] [place] Platelets [#/volume] in Bloo d by Automated countOrdered By: Danial Gould on 07-22-2023 Platelets (Bld) [#/Vol] 214 10*3/uL Normal 150-450 [facility] Comment on above: Performed By: #### C BC, BMP #### [facility] [address] [place] [id number] [place] Potassium [Moles/volume] in Serum or PlasmaOrdered By: Danial Gould on 07-22-2023 Potassium [Moles/Vol] 4.3 mmol/L Normal 3.5-5.1 [facility] Comment on above: Performed By: #### C UU, ADDONUAPLUS #### [address] Protein [Mass/volume] in Ser um or PlasmaOrdered By: Danial Gould on 07-22-2023 Protein [Mass/Vol] 7.0 g/dL Normal 6.4-8.9 [facility] Comment on above: Performed By: #### C UU, ADDONUAPLUS #### [address] Serum globulin measurement b y calculation (mass/volume)Ordered By: Danial Gould on 07-22-2023 Globulin (S) [Mass/Vol] 3.1 g/dL Normal [facility] Comment on above: Performed By: #### C UU, ADDONUAPLUS #### [address] Serum or plasma albumin/glob ulin mass ratioOrdered By: Danial Gould on 07-22-2023 Albumin/Globulin [Mass ratio] 1.3 {ratio} Normal [facility] Comment on above: Performed By: #### C UU, ADDONUAPLUS #### [address] Serum or plasma anion gap de terminationOrdered By: Danial Gould on 07-22-2023 Anion gap [Moles/Vol] 10.6 mmol/L Normal 6.0-15.0 [facility] Comment on above: Performed By: #### C UU, ADDONUAPLUS #### [place] [address] [place] Sodium [Moles/volume] in Ser um or PlasmaOrdered By: Danial Gould on 07-22-2023 Sodium [Moles/Vol] 139 mmol/L Normal 136-145 [facility] Comment on above: Performed By: #### C UU, ADDONUAPLUS #### [address] [place] [address] [place] Specific gravity Auto test s trip (U) [Rel density]Ordered By: Danial Gould on 07-22-2023 Specific gravity (U) [Rel density] 1.023 1.001-1.030 [facility] Squamous epithelial cells de tection in urine sediment by light microscopyOrdered By: Danial Gould on 07-22-2023 Epithelial cells.squamous LM Ql (Urine sed) 0-1 [HPF] 0-2 [facility] Urea nitrogen [Mass/volume] in Serum or PlasmaOrdered By: Danial Gould on 07-22-2023 Urea nitrogen [Mass/Vol] 22 mg/dL Normal 7-25 [facility] Comment on above: Performed By: #### C UU, ADDNICOLE #### [address] Urine Cultureon 07-22-2023 Bacteria identified Cx Nom (U) ORGANISM: Klebsiella pneumoniae (ESBL) (O:KLEPNEESBL) Minto Count >100,000 Aerobic SCOTT Charge (NMIC56) ----- [...] RESISTANT TO ALL B-LACTAM DRUGS. PERFORMED BY: [place] [address] PATHOLOGIST NAMED ACCOUNT EXECUTIVE RENETTA MONACO M.D. Normal [facility] Comment on above: Performed By: #### C PETEY, BMP #### [address] Urine bacteria detection by automated methodOrdered By: Danial Gould on 07-22-2023 Bacteria Auto Ql (U) 2+ None Seen [facility] Urine clarity by refractomet ry automatedOrdered By: Danial Gould on 07-22-2023 Clarity Refractometry automated (U) Turbid Clear [facility] Urine glucose measurement by automated test strip (mass/volume)Ordered By: Danial Gould on 07-22-2023 Glucose Auto test strip (U) [Mass/Vol] Normal mg/dL Normal [facility] Urine hemoglobin detection b y automated test stripOrdered By: Danial Gould on 07-22-2023 Hemoglobin Auto test strip Ql (U) 3+ Negative [facility] Urine leukocyte esterase det ection by automated test stripOrdered By: Danial Gould on 07-22-2023 Leukocyte esterase Auto test strip Ql (U) 4+ Negative [facility] Urine pH measurement by auto mated test stripOrdered By: Danial Gould on 07-22-2023 pH (U) 7.0 [pH] Normal 5.0-9.0 [facility] Comment on above: Order Comment: Name Collection Type:: Hernandez Catheter Performed By: #### C PETEY, BMP #### [facility] [address] [place] [address] Urine protein measurement by automated test strip (mass/volume)Ordered By: Danial Gould on 07-22-2023 Protein (U) [Mass/Vol] 100 mg/dL High Negative [facility] Comment on above: Order Comment: Name Collection Type:: Hernandez Catheter Performed By: #### C PETEY, BMP #### [address] Urobilinogen Auto test strip (U) [Mass/Vol]Ordered By: Danial Gould on 07-22-2023 Urobilinogen (U) [Mass/Vol] Normal mg/dL Normal [facility] Automated basophil %Ordered By: Kary Boone on 04-22-2023 Basophils/100 WBC (Bld) 1.0 % Normal . F [facility] Comment on above: Performed By: #### C UU, ADDONUAPLUS #### [address] Automated basophil countOrde red By: Kary Boone on 04-22-2023 Basophils (Bld) [#/Vol] 0.1 10*3/uL Normal 0.0-0.2 [facility] Comment on above: Result Comment: PERF ORMED BY: [place] [address] PATHOLOGIST NAMED ACCOUNT EXECUTIVE RENETTA MONACO M.D. Performed By: #### C UU, ADDONUAPLUS #### [address] Automated blood monocyte cou ntOrdered By: Kary Boone on 04-22-2023 Monocytes (Bld) [#/Vol] 0.7 10*3/uL Normal 0.0-0.8 [facility] Comment on above: Performed By: #### C UU, ADDONUAPLUS #### [address] Automated eosinophil %Ordere d By: Kary Boone on 04-22-2023 Eosinophils/100 WBC (Bld) 7.0 % Normal . [facility] Comment on above: Performed By: #### C UU, ADDONUAPLUS #### [address] Automated eosinophil countOr dered By: Kary Boone on 04-22-2023 Eosinophils (Bld) [#/Vol] 0.4 10*3/uL Normal 0.0-0.45 [facility] Comment on above: Performed By: #### C UU, ADDONUAPLUS #### [address] Automated monocyte %Ordered By: Kary Boone on 04-22-2023 Monocytes/100 WBC (Bld) 13.3 % Normal . [facility] Comment on above: Performed By: #### C UU, ADDONUAPLUS #### [address] Automated neutrophil %Ordere d By: Kary Boone on 04-22-2023 Neutrophils/100 WBC (Bld) 45.2 % Normal . [facility] Comment on above: Performed By: #### C UU, ADDONUAPLUS #### [address] Basic Metabolic Panelon 03-29 Creatinine Clr Calc Pharmacy 87.[address] [facility] Comment on above: Result Comment: PERF ORMED BY: [place] [address] PATHOLOGIST NAMED ACCOUNT EXECUTIVE RENETTA MONACO M.D. Performed By: #### C UU, ADDONUAPLUS #### [address] GFR/1.73 sq M.predicted MDRD (S/P/Bld) [Vol rate/Area] mL/min/{1.73_m2} Normal [facility] Comment on above: Performed By: #### C UU, ADDONUAPLUS #### [address] Blood Cultureon 04-22-2023 Bacteria identified Cx Nom (Bld) NO GROWTH 5 DAYS PERFORMED BY: [place] [address] PATHOLOGIST NAMED ACCOUNT EXECUTIVE RENETTA MONACO M.D. Normal [facility] Comment on above: Performed By: #### C UU, ADDONUAPLUS #### [address] Bacteria identified Cx Nom (Bld) NO GROWTH 5 DAYS PERFORMED BY: [place] [address] PATHOLOGIST NAMED ACCOUNT EXECUTIVE RENETTA MONACO M.D. Normal [facility] Comment on above: Performed By: #### C UU, ADDONUAPLUS #### [address] Calcium [Mass/volume] in Ser um or PlasmaOrdered By: Kary Boone on 04-22-2023 Calcium [Mass/Vol] 9.5 mg/dL Normal 8.6-10.3 [facility] Comment on above: Performed By: #### C UChelle, ADDONUAPLUS #### [address] Carbon dioxide, total [Moles /volume] in Serum or PlasmaOrdered By: Kary Boone on 04-22-2023 CO2 [Moles/Vol] 26.9 mmol/L Normal 21.0-31.0 [facility] Comment on above: Performed By: #### C UChelle, ADDONUAPLUS #### [place] [address] [place] Chloride [Moles/volume] in S jennifer or PlasmaOrdered By: Kary Boone on 04-22-2023 Chloride [Moles/Vol] 106 mmol/L Normal 98-107 [facility] Comment on above: Performed By: #### C UU, ADDONUAPLUS #### [address] Complete Blood Count Auto Di ffon 04-22-2023 Mean Corpuscular HGB Conc 33.0 g/dL Normal 32.5-35.[address] [facility] Comment on above: Performed By: #### C UU, ADDONUAPLUS #### [address] Monocytes/100 WBC (Bld) 18.01 % Normal 0.00-20.[address] [facility] Comment on above: Performed By: #### C UU, ADDONUAPLUS #### [facility] [address] NRBC% 0.2 /100{WBC} Normal 0-0.5 [facility] Comment on above: Performed By: #### C UU, ADDONUAPLUS #### [address] Creatinine [Mass/volume] in Serum or PlasmaOrdered By: Kary Boone on 04-22-2023 Creatinine [Mass/Vol] 0.66 mg/dL Low 0.70-1.30 [facility] Comment on above: Performed By: #### C UU, ADDONUAPLUS #### [address] Erythrocyte distribution wid th [Ratio] by Automated countOrdered By: Kary Boone on 04-22-2023 Erythrocyte distribution width (RBC) [Ratio] 14.8 % Normal 12.0-14.8 [facility] Comment on above: Performed By: #### C UU, ADDONUAPLUS #### [address] Erythrocytes [#/volume] in B lood by Automated countOrdered By: Kary Boone on 04-22-2023 RBC (Bld) [#/Vol] 4.26 10*6/uL Normal 3.90-5.60 [facility] Comment on above: Performed By: #### C UU, ADDONUAPLUS #### [address] Glucose [Mass/volume] in Ser um or PlasmaOrdered By: Kary Boone on 04-22-2023 Glucose [Mass/Vol] 115 mg/dL High 70-100 [facility] Comment on above: ADA recommended refe rence rangeRandom Glucose Reference Range is dependent on time and content of last meal. Glucose of more than 200 mg/dL in a nonstressed, ambulatory subject supports the diagnosis of Diabetes Mellitus. Result Comment: [place] om Glucose Reference Range is dependent on time and content of last meal. Glucose of more than 200 mg/dL in a nonstressed, ambulatory subject supports the diagnosis of Diabetes Mellitus. ADA recommended reference range Performed By: #### C UU, ADDONUAPLUS #### [facility] [address] [place] [address] Hematocrit [Volume Fraction] of Blood by Automated countOrdered By: Kary Boone on 04-22-2023 Hematocrit (Bld) [Volume fraction] 36.0 % Low 38.8-50.0 [facility] Comment on above: Performed By: #### C UU, ADDONUAPLUS #### [address] Hemoglobin [Mass/volume] in BloodOrdered By: Kary Boone on 04-22-2023 Hemoglobin (Bld) [Mass/Vol] 11.9 g/dL Low 13.0-17.0 [facility] Comment on above: Performed By: #### C UU, ADDONUAPLUS #### [address] Leukocytes [#/volume] correc mayte for nucleated erythrocytes in Blood by Automated counOrdered By: Kary Boone on 04-22-2023 WBC corrected for nucl RBC Auto (Bld) [#/Vol] 5.7 10*3/uL 4.1-10.5 [facility] Leukocytes [#/volume] in Blo od by Automated countOrdered By: Kary Boone on 04-22-2023 WBC (Bld) [#/Vol] 5.7 10*3/uL Normal 4.1-10.5 [facility] Comment on above: Performed By: #### C UU, ADDONUAPLUS #### [facility] [address] [place] [address] [place] Lymphocytes [#/volume] in Bl ood by Automated countOrdered By: Kary Boone on 04-22-2023 Lymphocytes (Bld) [#/Vol] 1.9 10*3/uL Normal 1.00-4.8 [facility] Comment on above: Performed By: #### C UU, ADDONUAPLUS #### [address] [place] [address] [place] Lymphocytes/100 leukocytes i n Blood by Automated countOrdered By: Kary Boone on 04-22-2023 Lymphocytes/100 WBC (Bld) 33.5 % Normal . [facility] Comment on above: Performed By: #### C UU, ADDONUAPLUS #### [address] MCH [Entitic mass] by Automa mayte countOrdered By: Kary Boone on 04-22-2023 MCH (RBC) [Entitic mass] 27.9 pg Normal 27.5-35.2 [facility] Comment on above: Performed By: #### C UU, ADDONUAPLUS #### [address] MCHC Auto (RBC) [Mass/Vol]Or dered By: Kary Boone on 04-22-2023 MCHC (RBC) [Mass/Vol] 33.0 g/dL 32.5-35.6 [facility] MCV [Entitic volume] by Auto mated countOrdered By: Kary Boone on 04-22-2023 MCV (RBC) [Entitic vol] 84.7 fL Normal 83.5-101 F [facility] Comment on above: Performed By: #### C UU, ADDONUAPLUS #### [address] Monocyte distribution width [Entitic volume] in Blood by AutomatedOrdered By: Kary Boone on 04-22-2023 Monocyte distribution width Auto (Bld) [Entitic vol] 18.01 % 0.00-20.00 [facility] Neutrophils [#/volume] in Bl ood by Automated countOrdered By: Kary Boone on 04-22-2023 Neutrophils (Bld) [#/Vol] 2.6 10*3/uL Normal 1.8-7.7 [facility] Comment on above: Performed By: #### C UU, ADDONUAPLUS #### [address] No Panel InformationOrdered By: Kary Boone on 04-22-2023 Estimated GFR (CKD-EPI) > 60.0 mL/Min [facility] Creatinine Clearance (Chem 87.50 [facility] Nucleated erythrocytes [Pres ence] in Blood by Automated countOrdered By: Kary Boone on 04-22-2023 Nucleated RBC Auto Ql (Bld) 0.2 /100{WBC} 0-0.5 [facility] Platelet mean volume [Entiti c volume] in Blood by Automated countOrdered By: Kary Boone on 04-22-2023 Platelet mean volume (Bld) [Entitic vol] 8.2 fL Normal 6.6-10.1 [facility] Comment on above: Performed By: #### C UU, ADDONUAPLUS #### [facility] [address] [place] [address] [place] Platelets [#/volume] in Bloo d by Automated countOrdered By: Kary Boone on 04-22-2023 Platelets (Bld) [#/Vol] 241 10*3/uL Normal 150-450 [facility] Comment on above: Performed By: #### C UU, ADDONUAPLUS #### [facility] [address] [place] [address] [place] Potassium [Moles/volume] in Serum or PlasmaOrdered By: Kary Boone on 04-22-2023 Potassium [Moles/Vol] 4.1 mmol/L Normal 3.5-5.1 [facility] Comment on above: Performed By: #### C UU, ADDONUAPLUS #### [facility] [address] [place] [address] [place] Serum or plasma anion gap de terminationOrdered By: Kary Boone on 04-22-2023 Anion gap [Moles/Vol] 10.2 mmol/L Normal 6.0-15.0 [facility] Comment on above: Performed By: #### C UU, ADDONUAPLUS #### [facility] [address] [place] [address] [place] Sodium [Moles/volume] in Ser um or PlasmaOrdered By: Kary Boone on 04-22-2023 Sodium [Moles/Vol] 139 mmol/L Normal 136-145 [facility] Comment on above: Performed By: #### C JUSTIN ROBLEDOUAPLUS #### [facility] [address] Superficial Wound Cultureon 04-22-2023 Superficial Wound Culture Light Normal Skin [place] 2 Days PERFORMED BY: [place] [address] PATHOLOGIST NAMED ACCOUNT EXECUTIVE RENETTA MONACO M.D. Normal [facility] Comment on above: Performed By: #### C USUP #### [facility] [address] Superficial Wound Culture ORGANISM: Acineto. crystal/nosocom [...] RESISTANT TO ALL B-LACTAM DRUGS. PERFORMED BY: [place] [address] PATHOLOGIST NAMED ACCOUNT EXECUTIVE RENETTA MONACO M.D. Normal [facility] Comment on above: Performed By: #### B MP, CBC #### [facility] [address] [place] [address] Urea nitrogen [Mass/volume] in Serum or PlasmaOrdered By: Kary Boone on 04-22-2023 Urea nitrogen [Mass/Vol] 14 mg/dL Normal 10-19 [facility] Comment on above: Performed By: #### C EDILSON ROBLEDOPLUS #### [facility] [address] [place] [address] XR hip RT min 2V(w/wo pelvis )*on 04-22-2023 XR hip RT min 2V(w/wo pelvis)* [facility] [place] [address] XRay Report Signed Patient: Fede Guerra Sr MR#: [id number] : 1955 Acct:[id number] Age/Sex: 68 / M ADM Date: 04/22/23 Loc: ER Room: Type: [facility] ER Attending Dr: Chris to: Kary Boone [...] Erika Pitts M.D.04/22/2023 6:39 PM Dictation Location: [place] [address] Transcribed By: [facility] 04/22/231838 Dictated By: Erika Pitts II, MD 04/22/231835 Signed By: 04/22/231838 [address] [facility] ECG 12 lead ECGon 04-19-2023 ECG 12 lead ECG [facility] [place] [address] [place] [id number] Electrocardiograph Report Signed Patient: Fede Guerra Sr MR#: [id number] : 1955 Acct:[id number] Age/Sex: 68 / M ADM Date: 04/15/23 Loc: Room: [address] [place] [address] Type: ADM IN Attending Dr: Kip Hunt [...] Ruelas MD 0 04/19/[address] [facility] Dipstick and Microscopicon 0 04-15-2023 Appearance (U) Turbid Critically abnormal Clear [facility] Comment on above: Order Comment: Name Collection Type:: Hernandez Catheter Performed By: #### C UU, ADDONUAPLUS #### [facility] [address] [place] [id number] [place] Bacteria,Urine 4+ High None Seen [facility] Comment on above: Order Comment: Name Collection Type:: Hernandez Catheter Performed By: #### C UU, ADDONUAPLUS #### [facility] [address] [place] [address] [place] Bilirubin,Urine Negative Normal Negative [facility] Comment on above: Order Comment: Name Collection Type:: Hernandez Catheter Performed By: #### C UU, ADDONUAPLUS #### [facility] [address] [place] [address] [place] Color (U) Yellow Normal Yellow [facility] Comment on above: Order Comment: Name Collection Type:: Hernandez Catheter Performed By: #### C UU, ADDONUAPLUS #### [facility] [address] [place] [address] [place] Glucose Ql (U) Normal Normal Normal [facility] Comment on above: Order Comment: Name Collection Type:: Hernandez Catheter Performed By: #### C UU, ADDONUAPLUS #### [facility] [address] [place] [address] [place] Hyaline Casts,Urine 0-8 Normal 0-8 [facility] Comment on above: Order Comment: Name Collection Type:: Hernandez Catheter Performed By: #### C UU, ADDONUAPLUS #### [address] Ketones Ql (U) Negative Normal Negative [facility] Comment on above: Order Comment: Name Collection Type:: Hernandez Catheter Performed By: #### C UU, ADDONUAPLUS #### [address] Leukocyte esterase Test strip Ql (U) 4+ High Negative [facility] Comment on above: Order Comment: Name Collection Type:: Hernandez Catheter Performed By: #### C UU, ADDONUAPLUS #### [place] [address] [place] Nitrite,Urine Positive High Negative [facility] Comment on above: Order Comment: Name Collection Type:: Hernandez Catheter Performed By: #### C UU, ADDONUAPLUS #### [place] [address] [place] Occult Blood,Urine Trace High Negative [facility] Comment on above: Order Comment: Name Collection Type:: Hernandez Catheter Result Comment: PERF ORMED BY: [address] [place] [address] PATHOLOGIST NAMED ACCOUNT EXECUTIVE RENETTA MONACO M.D. Performed By: #### C UU, ADDONUAPLUS #### [place] [address] [place] pH (U) 8.0 [pH] Normal 5.0-9.[address] [facility] Comment on above: Order Comment: Name Collection Type:: Hernandez Catheter Performed By: #### C UU, ADDONUAPLUS #### [place] [address] [place] Protein (U) [Mass/Vol] 30 mg/dL High Negative [facility] Comment on above: Order Comment: Name Collection Type:: Hernandez Catheter Performed By: #### C UU, ADDONUAPLUS #### [address] RBC,Urine 5-9 High 0-[address] [facility] Comment on above: Order Comment: Name Collection Type:: Hernandez Catheter Performed By: #### C UU, ADDONUAPLUS #### [address] Specificy Merkel,Urine 1.018 Normal 1.001-1.[address] [facility] Comment on above: Order Comment: Name Collection Type:: Hernandez Catheter Performed By: #### C UU, ADDONUAPLUS #### [address] Squamous Epithelial Cell,Urine 0-1 Normal 0-[address] [facility] Comment on above: Order Comment: Name Collection Type:: Hernadnez Catheter Performed By: #### C UU, ADDONUAPLUS #### [address] Urobilinogen,Urine Normal Normal Normal [facility] Comment on above: Order Comment: Name Collection Type:: Hernandez Catheter Performed By: #### C UU, ADDONUAPLUS #### [address] WBC,Urine Innumerable High 0-[address] [facility] Comment on above: Order Comment: Name Collection Type:: Hernandez Catheter Performed By: #### C UU, ADDONUAPLUS #### [place] [address] [place] Yeast,Urine None Seen Normal None Seen [facility] Comment on above: Order Comment: Name Collection Type:: Hernandez Catheter Result Comment: PERF ORMED BY: [place] [address] PATHOLOGIST NAMED ACCOUNT EXECUTIVE RENETTA MONACO M.D. Performed By: #### C UU, ADDONUAPLUS #### [address] Urine Cultureon 04-15-2023 Bacteria identified Cx Nom (U) ORGANISM: Klebsiella pneumoniae (ESBL) (O:KERRI) Minto Count >100,000 Aerobic SCOTT Charge (NMIC56) ----- [...] RESISTANT TO ALL B-LACTAM DRUGS. PERFORMED BY: [place] [address] PATHOLOGIST NAMED ACCOUNT EXECUTIVE RENETTA MONACO M.D. Normal [facility] Comment on above: Performed By: #### C BC, BMP #### [address] Basic Metabolic Panelon 12-2 Creatinine Clr Calc Pharmacy 55.[address] [facility] Comment on above: Result Comment: PERF ORMED BY: [address] [place] [address] PATHOLOGIST NAMED ACCOUNT EXECUTIVE RENETTA MONACO M.D. Performed By: #### B MP, CBC #### [place] [address] [place] GFR/1.73 sq M.predicted MDRD (S/P/Bld) [Vol rate/Area] mL/min/{1.73_m2} Normal [facility] Comment on above: Performed By: #### B MP, CBC #### [place] [address] [place] Calcium [Mass/volume] in Ser um or PlasmaOrdered By: Zeinab Rebeccaskiene on 03-20-2023 Calcium [Mass/Vol] 8.2 mg/dL Low 8.6-10.3 [facility] Comment on above: Performed By: #### B MP, CBC #### [place] [address] [place] Carbon dioxide, total [Moles /volume] in Serum or PlasmaOrdered By: Zeinab Angeloe on 03-20-2023 CO2 [Moles/Vol] 25.6 mmol/L Normal 21.0-31.0 [facility] Comment on above: Performed By: #### B MP, CBC #### [place] [address] [place] Chloride [Moles/volume] in S jennifer or PlasmaOrdered By: Zeinab Rebeccaskmelle on 03-20-2023 Chloride [Moles/Vol] 109 mmol/L High 98-107 [facility] Comment on above: Performed By: #### B MP, CBC #### [place] [address] [place] Creatinine [Mass/volume] in Serum or PlasmaOrdered By: Zeinab Semaskiene on 03-20-2023 Creatinine [Mass/Vol] 1.28 mg/dL Normal 0.70-1.30 [facility] Comment on above: Performed By: #### B MP, CBC #### [place] [address] [place] Glucose [Mass/volume] in Ser um or PlasmaOrdered By: Zeinab Poole on 03-20-2023 Glucose [Mass/Vol] 97 mg/dL Normal 70-100 [facility] Comment on above: ADA recommended refe rence rangeRandom Glucose Reference Range is dependent on time and content of last meal. Glucose of more than 200 mg/dL in a nonstressed, ambulatory subject supports the diagnosis of Diabetes Mellitus. Result Comment: [place] om Glucose Reference Range is dependent on time and content of last meal. Glucose of more than 200 mg/dL in a nonstressed, ambulatory subject supports the diagnosis of Diabetes Mellitus. ADA recommended reference range Performed By: #### B MP, CBC #### [facility] [address] No Panel InformationOrdered By: Zeinab Poole on 03-20-2023 Estimated GFR (CKD-EPI) > 60.0 mL/Min [facility] Creatinine Clearance (Chem 55.23 [facility] Potassium [Moles/volume] in Serum or PlasmaOrdered By: Zeinab Poole on 03-20-2023 Potassium [Moles/Vol] 3.9 mmol/L Normal 3.5-5.1 [facility] Comment on above: Performed By: #### B MP, CBC #### [facility] [address] Serum or plasma anion gap de terminationOrdered By: Zeinab Poole on 03-20-2023 Anion gap [Moles/Vol] 7.3 mmol/L Normal 6.0-15.0 [facility] Comment on above: Performed By: #### B MP, CBC #### [facility] [address] [place] [address] [place] Sodium [Moles/volume] in Ser um or PlasmaOrdered By: Zeinab Poole on 03-20-2023 Sodium [Moles/Vol] 138 mmol/L Normal 136-145 [facility] Comment on above: Performed By: #### B MP, CBC #### [facility] [address] [place] [address] [place] Urea nitrogen [Mass/volume] in Serum or PlasmaOrdered By: Zeinab Poole on 03-20-2023 Urea nitrogen [Mass/Vol] 29 mg/dL High 7-25 [facility] Comment on above: Performed By: #### B MP, CBC #### [facility] [address] Anisocytosis [Presence] in B lood by Light microscopyOrdered By: Zeinab Poole on 03-19-2023 Anisocytosis Ql (Bld) Slight Normal [facility] Comment on above: Performed By: #### C UU, ADDONUAPLUS #### [address] Basic Metabolic Panelon 02-26 Anion gap [Moles/Vol] 9.4 mmol/L Normal 6.0-15.[address] [facility] Comment on above: Performed By: #### C UU, ADDONUAPLUS #### [address] Calcium [Mass/Vol] 8.3 mg/dL Low 8.6-10.3 [facility] Comment on above: Performed By: #### C UU, ADDONUAPLUS #### [address] Chloride [Moles/Vol] 112 mmol/L High 98-[address] [facility] Comment on above: Performed By: #### C UU, ADDONUAPLUS #### [address] CO2 [Moles/Vol] 23.6 mmol/L Normal 21.0-31.0 [facility] Comment on above: Performed By: #### C UU, ADDONUAPLUS #### [place] [address] [place] Creatinine [Mass/Vol] 1.48 mg/dL High 0.70-1.[address] [facility] Comment on above: Performed By: #### C UU, ADDONUAPLUS #### [place] [address] [place] Creatinine Clr Calc Pharmacy 47.[address] [facility] Comment on above: Result Comment: PERF ORMED BY: [place] [address] PATHOLOGIST NAMED ACCOUNT EXECUTIVE RENETTA MONACO M.D. Performed By: #### C UU, ADDONUAPLUS #### [place] [address] [place] GFR/1.73 sq M.predicted MDRD (S/P/Bld) [Vol rate/Area] 51.215 mL/min/{1.73_m2} Normal [facility] Comment on above: Performed By: #### C UU, ADDONUAPLUS #### [address] Glucose [Mass/Vol] 84 mg/dL Normal 70-100 [facility] Comment on above: Result Comment: [place] Glucose Reference Range is dependent on time and content of last meal. Glucose of more than 200 mg/dL in a nonstressed, ambulatory subject supports the diagnosis of Diabetes Mellitus. ADA recommended reference range Performed By: #### C UU, ADDONUAPLUS #### [place] [address] [place] Potassium [Moles/Vol] 4.0 mmol/L Normal 3.5-5.[address] [facility] Comment on above: Performed By: #### C UU, ADDONUAPLUS #### [place] [address] [place] Sodium [Moles/Vol] 141 mmol/L Normal 136-145 [facility] Comment on above: Performed By: #### C UU, ADDONUAPLUS #### [place] [address] [place] Urea nitrogen [Mass/Vol] 37 mg/dL High 7-[address] [facility] Comment on above: Performed By: #### C UU, ADDONUAPLUS #### [place] [address] [place] Basophils Auto (Bld) [#/Vol] Ordered By: Zeinab Poole on 03-19-2023 Basophils (Bld) [#/Vol] N/A F [facility] Basophils/100 WBC Auto (Bld) Ordered By: Zeinab Poole on 03-19-2023 Basophils/100 WBC (Bld) N/A F [facility] Ney cells [Presence] in Blo od by Light microscopyOrdered By: Zeinab Poole on 03-19-2023 Ney cells LM Ql (Bld) Slight [facility] CBCon 03-19-2023 Crenated RBC Slight Normal [facility] Comment on above: Performed By: #### C UU, ADDONUAPLUS #### [address] Giant Platelet Tally 1 /100{WBC} Normal [facility] Comment on above: Performed By: #### C UU, ADDONUAPLUS #### [address] Large Platelets Slight Normal [facility] Comment on above: Result Comment: PERF ORMED BY: [place] [address] PATHOLOGIST NAMED ACCOUNT EXECUTIVE RENETTA MONACO M.D. Performed By: #### C UU, ADDONUAPLUS #### [address] Macrocytosis Slight Normal [facility] Comment on above: Performed By: #### C UU, ADDONUAPLUS #### [address] Mean Corpuscular HGB Conc 33.4 g/dL Normal 32.5-35.[address] [facility] Comment on above: Performed By: #### C UU, ADDONUAPLUS #### [address] Microcytosis Slight Normal [facility] Comment on above: Performed By: #### C UU, ADDONUAPLUS #### [address] Ovalocytes Slight Normal [facility] Comment on above: Performed By: #### C UU, ADDONUAPLUS #### [facility] [address] [place] [address] Platelet Estimate Decreased Normal Normal [facility] Comment on above: Performed By: #### C UU, ADDONUAPLUS #### [facility] [address] [place] [address] Platelet Morphology Normal Normal Normal [facility] Comment on above: Performed By: #### C UU, ADDONUAPLUS #### [address] Poikilocytosis Slight Normal [facility] Comment on above: Performed By: #### C UU, ADDONUAPLUS #### [address] Target Cells Slight Normal [facility] Comment on above: Performed By: #### C UU, ADDONUAPLUS #### [facility] [address] [place] [address] Eosinophils Auto (Bld) [#/Vo l]Ordered By: Zeinab Poole on 03-19-2023 Eosinophils (Bld) [#/Vol] N/A [facility] Eosinophils/100 WBC Auto (Bl d)Ordered By: Zeinab Poole on 03-19-2023 Eosinophils/100 WBC (Bld) N/A [facility] Eosinophils/100 leukocytes i n Blood by Manual countOrdered By: Zeinab Poole on 03-19-2023 Eosinophils/100 WBC (Bld) 3 % Normal 1-3 [facility] Comment on above: Performed By: #### C UU, ADDONUAPLUS #### [facility] [address] [place] [address] [place] Erythrocyte distribution wid th [Ratio] by Automated countOrdered By: Zeinab Poole on 03-19-2023 Erythrocyte distribution width (RBC) [Ratio] 15.5 % High 12.0-14.8 [facility] Comment on above: Performed By: #### C UU, ADDONUAPLUS #### [facility] [address] [place] [address] [place] Erythrocytes [#/volume] in B lood by Automated countOrdered By: Zeinab Poole on 03-19-2023 RBC (Bld) [#/Vol] 3.71 10*6/uL Low 3.90-5.60 [facility] Comment on above: Performed By: #### C UChelle, ADDONUAPLUS #### [facility] [address] [place] [address] [place] Giant platelets/100 leukocyt es [Ratio] in Blood by Manual countOrdered By: Zeinab Poole on 03-19-2023 Giant platelets/100 WBC Manual cnt (Bld) [Ratio] 1 /100{WBC} [facility] Hematocrit [Volume Fraction] of Blood by Automated countOrdered By: Zeinab Poole on 03-19-2023 Hematocrit (Bld) [Volume fraction] 31.0 % Low 38.8-50.0 [facility] Comment on above: Performed By: #### C UChelle, ADDONUAPLUS #### [facility] [address] [place] [address] Hemoglobin [Mass/volume] in BloodOrdered By: Zeinab Poole on 03-19-2023 Hemoglobin (Bld) [Mass/Vol] 10.4 g/dL Low 13.0-17.0 [facility] Comment on above: Performed By: #### C UChelle, ADDONUAPLUS #### [facility] [address] [place] [address] Leukocytes [#/volume] correc mayte for nucleated erythrocytes in Blood by Automated counOrdered By: Zeinab Poole on 03-19-2023 WBC corrected for nucl RBC Auto (Bld) [#/Vol] 9.4 10*3/uL 4.1-10.5 [facility] Leukocytes [#/volume] in Blo od by Automated countOrdered By: Zeinab Poole on 03-19-2023 WBC (Bld) [#/Vol] 9.4 10*3/uL Normal 4.1-10.5 [facility] Comment on above: Performed By: #### C GUSTAVO ROBLEDOONUAPLUS #### [facility] [address] [place] [address] Lymphocytes Auto (Bld) [#/Vo l]Ordered By: Zeinab Poole on 03-19-2023 Lymphocytes (Bld) [#/Vol] N/A [facility] Lymphocytes/100 WBC Auto (Bl d)Ordered By: Zeinab Stephense on 03-19-2023 Lymphocytes/100 WBC (Bld) N/A [facility] Lymphocytes/100 leukocytes i n Blood by Manual countOrdered By: Zeinab Poole on 03-19-2023 Lymphocytes/100 WBC (Bld) 14 % Low 18-42 [facility] Comment on above: Performed By: #### C UU, ADDONUAPLUS #### [address] MCH [Entitic mass] by Automa mayte countOrdered By: Zeinab Poole on 03-19-2023 MCH (RBC) [Entitic mass] 27.9 pg Normal 27.5-35.2 [facility] Comment on above: Performed By: #### C UU, ADDONUAPLUS #### [facility] [address] [place] [address] MCHC Auto (RBC) [Mass/Vol]Or dered By: Zeinab Poole on 03-19-2023 MCHC (RBC) [Mass/Vol] 33.4 g/dL 32.5-35.6 [facility] MCV [Entitic volume] by Auto mated countOrdered By: Zeinab Poole on 03-19-2023 MCV (RBC) [Entitic vol] 83.7 fL Normal 83.5-101 F [facility] Comment on above: Performed By: #### C UU, ADDONUAPLUS #### [address] Macrocytes LM Ql (Bld)Ordere d By: Zeinab Poole on 03-19-2023 Macrocytes Ql (Bld) Slight [facility] Manual blood segmented neutr ophils/100 leukocytesOrdered By: Zeinab Stephense on 03-19-2023 Segmented neutrophils/100 WBC (Bld) 74 % High 50-70 [facility] Comment on above: Performed By: #### C UU, ADDONUAPLUS #### [facility] [address] [place] [address] [place] Microcytes LM Ql (Bld)Ordere d By: Zeinab Rebeccaskiene on 03-19-2023 Microcytes Ql (Bld) Slight [facility] Monocytes Auto (Bld) [#/Vol] Ordered By: Zeinab Semaskiene on 03-19-2023 Monocytes (Bld) [#/Vol] N/A F [facility] Monocytes/100 WBC Auto (Bld) Ordered By: Zeinab Semaskiene on 03-19-2023 Monocytes/100 WBC (Bld) N/A F [facility] Monocytes/100 leukocytes in Blood by Manual countOrdered By: Zeinab Rebeccaskiene on 03-19-2023 Monocytes/100 WBC (Bld) 8 % Normal 2-11 F [facility] Comment on above: Performed By: #### C UU, ADDONUAPLUS #### [facility] [address] [place] [address] Neutrophils Auto (Bld) [#/Vo l]Ordered By: Zeinab Semaskiene on 03-19-2023 Neutrophils (Bld) [#/Vol] N/A [facility] Neutrophils/100 WBC Auto (Bl d)Ordered By: Zeinab Semaskiene on 03-19-2023 Neutrophils/100 WBC (Bld) N/A [facility] Nucleated erythrocytes [Pres ence] in Blood by Automated countOrdered By: Zeinab Semaskiene on 03-19-2023 Nucleated RBC Auto Ql (Bld) N/A [facility] Ovalocyte detectionOrdered B y: Zeinab Semaskiene on 03-19-2023 Ovalocytes LM Ql (Bld) Slight Fi [facility] Peripheral white blood cell differential % bands, microscopic examOrdered By: Zeinab Rebeccaskiene on 03-19-2023 Band form neutrophils/100 WBC (Bld) 1 % Normal 0-5 [facility] Comment on above: Performed By: #### C UU, ADDONUAPLUS #### [facility] [address] [place] [address] [place] Platelet adequacy [Presence] in Blood by Light microscopyOrdered By: Zeinab Poole on 03-19-2023 Platelets LM Ql (Bld) Decreased Normal Fir [facility] Platelet mean volume [Entiti c volume] in Blood by Automated countOrdered By: Zeinab Poole on 03-19-2023 Platelet mean volume (Bld) [Entitic vol] 8.6 fL Normal 6.6-10.1 [facility] Comment on above: Performed By: #### C UU, ADDONUAPLUS #### [facility] [address] [place] [address] Platelet morphology finding [Identifier] in BloodOrdered By: Zeinab Poole on 03-19-2023 Platelet morphology finding Nom (Bld) Normal Normal [facility] Platelets Large [Presence] i n Blood by Light microscopyOrdered By: Zeinab Poole on 03-19-2023 Platelets Large LM Ql (Bld) Slight [facility] Platelets [#/volume] in Bloo d by Automated countOrdered By: Zeinab Poole on 03-19-2023 Platelets (Bld) [#/Vol] 101 10*3/uL Low 150-450 [facility] Comment on above: Performed By: #### C UU, ADDONUAPLUS #### [facility] [address] [place] [address] Poikilocytosis [Presence] in Blood by Light microscopyOrdered By: Zeinab Poole on 03-19-2023 Poikilocytosis LM Ql (Bld) Slight [facility] RBC morphologyOrdered By: Casper Poole on 03-19-2023 RBC morphology finding Nom (Bld) N/A [facility] Target cellsOrdered By: Zeinab Poole on 03-19-2023 Target cells LM Ql (Bld) Slight [facility] XR abdomen min 2Von 03-19-20 XR abdomen min 2V [facility] [address] [place] [address] XRay Report Signed Patient: Fede Guerra SR MR#: [id number] : 1955 Acct:[id number] Age/Sex: 68 / M ADM Date: 03/15/23 Loc: Room: [address] [place] [address] Type: ADM IN Attending Dr: Zeinab Poole [...] Christie Durán M.D.03/19/2023 3:41 PM Dictation Location: [place] [address] Transcribed By: [facility] 03/19/23 1541 Dictated By: Christie Durán MD 03/19/23 1538 Signed By: 03/19/[address] [facility] Basic Metabolic Panelon 02-26 Anion gap [Moles/Vol] 8.5 mmol/L Normal 6.0-15.[address] [facility] Comment on above: Performed By: #### C EDLISON ROBLEDOPLUS #### [place] [id number] [facility] Calcium [Mass/Vol] 8.1 mg/dL Low 8.6-10.3 [facility] Comment on above: Performed By: #### C UU, ADDONUAPLUS #### [address] Chloride [Moles/Vol] 114 mmol/L High 98-[address] [facility] Comment on above: Performed By: #### C UU, ADDONUAPLUS #### [address] CO2 [Moles/Vol] 22.7 mmol/L Normal 21.0-31.0 [facility] Comment on above: Performed By: #### C UU, ADDONUAPLUS #### [address] Creatinine [Mass/Vol] 1.86 mg/dL Significan t change up 0.70-1.[address] [facility] Comment on above: Performed By: #### C UU, ADDONUAPLUS #### [address] Creatinine Clr Calc Pharmacy 38.[address] [facility] Comment on above: Result Comment: PERF ORMED BY: [place] [id number] PATHOLOGIST NAMED ACCOUNT EXECUTIVE RENETTA MONACO M.D. Performed By: #### C UU, ADDONUAPLUS #### [address] GFR/1.73 sq M.predicted MDRD (S/P/Bld) [Vol rate/Area] 38.931 mL/min/{1.73_m2} Normal [facility] Comment on above: Performed By: #### C UU, ADDONUAPLUS #### [address] Glucose [Mass/Vol] 82 mg/dL Normal 70-100 [facility] Comment on above: Result Comment: [place] Glucose Reference Range is dependent on time and content of last meal. Glucose of more than 200 mg/dL in a nonstressed, ambulatory subject supports the diagnosis of Diabetes Mellitus. ADA recommended reference range Performed By: #### C UU, ADDONUAPLUS #### [place] [address] [place] Potassium [Moles/Vol] 4.2 mmol/L Normal 3.5-5.[address] [facility] Comment on above: Performed By: #### C UU, ADDONUAPLUS #### [address] Sodium [Moles/Vol] 141 mmol/L Normal 136-145 [facility] Comment on above: Performed By: #### C UU, ADDONUAPLUS #### [address] Urea nitrogen [Mass/Vol] 47 mg/dL High 7-[address] [facility] Comment on above: Performed By: #### C UU, ADDONUAPLUS #### [address] Dohle bodies detectionOrdere d By: Zeinab Poole on 03-18-2023 Dohle body LM Ql (Bld) Slight [facility] Scan and CBCon 03-18-2023 Anisocytosis Ql (Bld) Slight Normal [facility] Comment on above: Performed By: #### C UU, ADDONUAPLUS #### [place] [address] [place] Basophils (Bld) [#/Vol] 0.1 10*3/uL Normal 0.0-0.[address] [facility] Comment on above: Performed By: #### C UU, ADDONUAPLUS #### [place] [address] [place] Basophils/100 WBC (Bld) 0.5 % Normal . [facility] Comment on above: Performed By: #### C UU, ADDONUAPLUS #### [address] Dohle Bodies Slight Normal [facility] Comment on above: Performed By: #### C UU, ADDONUAPLUS #### [address] Eosinophils (Bld) [#/Vol] 0.2 10*3/uL Normal 0.0-0.[address] [facility] Comment on above: Performed By: #### C UU, ADDONUAPLUS #### [address] Eosinophils/100 WBC (Bld) 1.4 % Normal . [facility] Comment on above: Performed By: #### C UU, ADDONUAPLUS #### [address] Erythrocyte distribution width (RBC) [Ratio] 15.6 % High 12.0-14.[address] [facility] Comment on above: Performed By: #### C UU, ADDONUAPLUS #### [address] Hematocrit (Bld) [Volume fraction] 30.9 % Low 38.8-50.[address] [facility] Comment on above: Performed By: #### C UU, ADDONUAPLUS #### [address] Hemoglobin (Bld) [Mass/Vol] 10.1 g/dL Low 13.0-17.[address] [facility] Comment on above: Performed By: #### C UU, ADDONUAPLUS #### [address] Lymphocytes (Bld) [#/Vol] 1.1 10*3/uL Normal 1.00-4.[address] [facility] Comment on above: Performed By: #### C UU, ADDONUAPLUS #### [address] Lymphocytes/100 WBC (Bld) 6.4 % Normal . [facility] Comment on above: Performed By: #### C UU, ADDONUAPLUS #### [address] MCH (RBC) [Entitic mass] 27.6 pg Normal 27.5-35.[address] [facility] Comment on above: Performed By: #### C UU, ADDONUAPLUS #### [address] [place] [address] [place] MCV (RBC) [Entitic vol] 84.3 fL Normal 83.5-101 [facility] Comment on above: Performed By: #### C UChelle, ADDONUAPLUS #### [address] Mean Corpuscular HGB Conc 32.7 g/dL Normal 32.5-35.[address] [facility] Comment on above: Performed By: #### C UU, ADDONUAPLUS #### [address] Microcytosis Slight Normal [facility] Comment on above: Performed By: #### C UChelle, ADDONUAPLUS #### [address] Monocytes (Bld) [#/Vol] 0.7 10*3/uL Normal 0.0-0.[address] [facility] Comment on above: Performed By: #### C UChelle, ADDONUAPLUS #### [address] Monocytes/100 WBC (Bld) 4.2 % Normal . [facility] Comment on above: Performed By: #### C UChelle ADDONUAPLUS #### [address] Neutrophils (Bld) [#/Vol] 14.6 10*3/uL High 1.8-7.[address] [facility] Comment on above: Performed By: #### C UU, ADDONUAPLUS #### [place] [address] [place] Neutrophils/100 WBC (Bld) 87.5 % Normal . [facility] Comment on above: Performed By: #### C UU, ADDONUAPLUS #### [address] NRBC% 0.1 /100{WBC} Normal 0-0.5 [facility] Comment on above: Performed By: #### C UU, ADDONUAPLUS #### [address] Platelet Estimate Decreased Normal Normal [facility] Comment on above: Performed By: #### C UU, ADDONUAPLUS #### [address] Platelet mean volume (Bld) [Entitic vol] 8.9 fL Normal 6.6-10.1 [facility] Comment on above: Performed By: #### C UU, ADDONUAPLUS #### [address] Platelet Morphology Normal Normal Normal [facility] Comment on above: Result Comment: PERF ORMED BY: [place] [id number] PATHOLOGIST NAMED ACCOUNT EXECUTIVE RENETTA MONACO M.D. Performed By: #### C UU, ADDONUAPLUS #### [address] Platelets (Bld) [#/Vol] 105 10*3/uL Low 150-[address] [facility] Comment on above: Performed By: #### C UU, ADDONUAPLUS #### [address] RBC (Bld) [#/Vol] 3.66 10*6/uL Low 3.90-5.60 [facility] Comment on above: Performed By: #### C UU, ADDONUAPLUS #### [address] WBC (Bld) [#/Vol] 16.6 10*3/uL High 4.1-10.5 [facility] Comment on above: Performed By: #### C UU, ADDONUAPLUS #### [address] Basic Metabolic Panelon 12-2 Anion gap [Moles/Vol] 10.4 mmol/L Normal 6.0-15.0 [facility] Comment on above: Performed By: #### C UU, ADDONUAPLUS #### [address] Calcium [Mass/Vol] 7.9 mg/dL Low 8.6-10.3 [facility] Comment on above: Performed By: #### C UU, ADDONUAPLUS #### [address] Chloride [Moles/Vol] 114 mmol/L High 98-[address] [facility] Comment on above: Performed By: #### C UU, ADDONUAPLUS #### [address] CO2 [Moles/Vol] 21.0 mmol/L Normal 21.0-31.0 [facility] Comment on above: Performed By: #### C UU, ADDONUAPLUS #### [address] Creatinine [Mass/Vol] 2.41 mg/dL Significan t change up 0.70-1.[address] [facility] Comment on above: Performed By: #### C UU, ADDONUAPLUS #### [place] [address] [place] Creatinine Clr Calc Pharmacy 29.[address] [facility] Comment on above: Result Comment: PERF ORMED BY: [place] [id number] PATHOLOGIST NAMED ACCOUNT EXECUTIVE RENETTA MONACO M.D. Performed By: #### C UU, ADDONUAPLUS #### [place] [address] [place] GFR/1.73 sq M.predicted MDRD (S/P/Bld) [Vol rate/Area] 28.529 mL/min/{1.73_m2} Normal [facility] Comment on above: Performed By: #### C UU, ADDONUAPLUS #### [address] Glucose [Mass/Vol] 71 mg/dL Normal 70-100 [facility] Comment on above: Result Comment: [place] Glucose Reference Range is dependent on time and content of last meal. Glucose of more than 200 mg/dL in a nonstressed, ambulatory subject supports the diagnosis of Diabetes Mellitus. ADA recommended reference range Performed By: #### C MEENA ADDONUAPLUS #### [address] Potassium [Moles/Vol] 4.4 mmol/L Normal 3.5-5.[address] [facility] Comment on above: Performed By: #### C UChelle ADDONUAPLUS #### [address] Sodium [Moles/Vol] 141 mmol/L Normal 136-145 [facility] Comment on above: Performed By: #### C UChelle ADDONUAPLUS #### [address] Urea nitrogen [Mass/Vol] 48 mg/dL High 7-[address] [facility] Comment on above: Performed By: #### C UChelle ADDONUAPLUS #### [address] Scan and CBCon 03-17-2023 Anisocytosis Ql (Bld) Slight Normal [facility] Comment on above: Performed By: #### C UChelle ADDONUAPLUS #### [place] [address] [place] Basophils (Bld) [#/Vol] 0.1 10*3/uL Normal 0.0-0.[address] [facility] Comment on above: Performed By: #### C UU ADDONUAPLUS #### [place] [address] [place] Basophils/100 WBC (Bld) 0.7 % Normal . [facility] Comment on above: Performed By: #### C UU ADDONUAPLUS #### [address] Dohle Bodies Moderate Normal [facility] Comment on above: Performed By: #### C UU ADDONUAPLUS #### [place] [id number] [place] Eosinophils (Bld) [#/Vol] 0.3 10*3/uL Normal 0.0-0.[address] [facility] Comment on above: Performed By: #### C UU, ADDONUAPLUS #### [address] Eosinophils/100 WBC (Bld) 1.5 % Normal . [facility] Comment on above: Performed By: #### C UU, ADDONUAPLUS #### [address] Erythrocyte distribution width (RBC) [Ratio] 16.0 % High 12.0-14.[address] [facility] Comment on above: Performed By: #### C UU, ADDONUAPLUS #### [address] Hematocrit (Bld) [Volume fraction] 30.0 % Low 38.8-50.[address] [facility] Comment on above: Performed By: #### C UChelle, ADDONUAPLUS #### [address] Hemoglobin (Bld) [Mass/Vol] 9.9 g/dL Low 13.0-17.[address] [facility] Comment on above: Performed By: #### C UU, ADDONUAPLUS #### [address] Lymphocytes (Bld) [#/Vol] 1.1 10*3/uL Normal 1.00-4.[address] [facility] Comment on above: Performed By: #### C UU, ADDONUAPLUS #### [address] Lymphocytes/100 WBC (Bld) 6.0 % Normal . [facility] Comment on above: Performed By: #### C UU, ADDONUAPLUS #### [address] MCH (RBC) [Entitic mass] 28.0 pg Normal 27.5-35.[address] [facility] Comment on above: Performed By: #### C UU, ADDONUAPLUS #### [facility] [address] MCV (RBC) [Entitic vol] 84.7 fL Normal 83.5-101 [facility] Comment on above: Performed By: #### C UU, ADDONUAPLUS #### [address] Mean Corpuscular HGB Conc 33.1 g/dL Normal 32.5-35.[address] [facility] Comment on above: Performed By: #### C UU, ADDONUAPLUS #### [address] Microcytosis Slight Normal [facility] Comment on above: Performed By: #### C UU, ADDONUAPLUS #### [address] Monocytes (Bld) [#/Vol] 1.0 10*3/uL High 0.0-0.[address] [facility] Comment on above: Performed By: #### C UU, ADDONUAPLUS #### [place] [address] [place] Monocytes/100 WBC (Bld) 5.3 % Normal . [facility] Comment on above: Performed By: #### C UU, ADDONUAPLUS #### [place] [address] [place] Neutrophils (Bld) [#/Vol] 15.8 10*3/uL High 1.8-7.[address] [facility] Comment on above: Performed By: #### C UU, ADDONUAPLUS #### [place] [address] [place] Neutrophils/100 WBC (Bld) 86.5 % Normal . [facility] Comment on above: Performed By: #### C UU, ADDONUAPLUS #### [place] [address] [place] NRBC% 0.0 /100{WBC} Normal 0-0.5 [facility] Comment on above: Performed By: #### C UU, ADDONUAPLUS #### [address] Platelet Estimate Decreased Normal Normal [facility] Comment on above: Performed By: #### C UU, ADDONUAPLUS #### [address] Platelet mean volume (Bld) [Entitic vol] 8.9 fL Normal 6.6-10.1 [facility] Comment on above: Performed By: #### C UU, ADDONUAPLUS #### [address] Platelet Morphology Normal Normal Normal [facility] Comment on above: Result Comment: PERF ORMED BY: [place] [id number] PATHOLOGIST NAMED ACCOUNT EXECUTIVE RENETTA MONACO M.D. Performed By: #### C UU, ADDONUAPLUS #### [address] Platelets (Bld) [#/Vol] 105 10*3/uL Low 150-[address] [facility] Comment on above: Performed By: #### C UU, ADDONUAPLUS #### [address] RBC (Bld) [#/Vol] 3.54 10*6/uL Low 3.90-5.60 [facility] Comment on above: Performed By: #### C UU, ADDONUAPLUS #### [address] Toxic Vacuolation Moderate Normal [facility] Comment on above: Performed By: #### C UU, ADDONUAPLUS #### [address] WBC (Bld) [#/Vol] 18.3 10*3/uL High 4.1-10.5 [facility] Comment on above: Performed By: #### C UU, ADDONUAPLUS #### [facility] [address] [place] [address] Toxic leukocyte vacuolation detectionOrdered By: Zeinab Poole on 03-17-2023 Leukocyte toxic vacuoles LM Ql (Bld) Moderate [facility] Alanine aminotransferase [En zymatic activity/volume] in Serum or PlasmaOrdered By: Gilbert [place] on 2023 ALT [Catalytic activity/Vol] 76 U/L High 7-52 [facility] Comment on above: Performed By: #### C UU, ADDONUAPLUS #### [facility] [address] [place] [address] Albumin [Mass/volume] in Ser um or Plasma by Bromocresol green (BCG) dye binding methoOrdered By: Gilbert [place] on 2023 Albumin BCG dye [Mass/Vol] 3.1 g/dL 3.5-5.7 [facility] Alkaline phosphatase [Enzyma tic activity/volume] in Serum or PlasmaOrdered By: Gilbert [place] on 2023 ALP [Catalytic activity/Vol] 49 U/L Normal 34-104 [facility] Comment on above: Performed By: #### C UU, ADDONUAPLUS #### [facility] [address] [place] [address] Aspartate aminotransferase [ Enzymatic activity/volume] in Serum or PlasmaOrdered By: Gilbert [place] on 2023 AST [Catalytic activity/Vol] 209 U/L High 13-39 [facility] Comment on above: Performed By: #### C UU, ADDONUAPLUS #### [facility] [address] [place] [address] Bilirubin.total [Mass/volume ] in Serum or PlasmaOrdered By: Gilbert [place] on 2023 Bilirubin [Mass/Vol] 0.9 mg/dL Normal 0.3-1.0 [facility] Comment on above: Performed By: #### C UU, ADDONUAPLUS #### [facility] [address] [place] [address] Blood toxic granulation dete ction by light microscopyOrdered By: Gilbert [place] on 2023 Toxic granules LM Ql (Bld) Slight [facility] Comprehensive Metabolic Pane kimberly 2023 Albumin [Mass/Vol] 3.1 g/dL Low 3.5-5.7 [facility] Comment on above: Performed By: #### C UU, ADDONUAPLUS #### [address] Anion gap [Moles/Vol] 10.8 mmol/L Normal 6.0-15.[address] [facility] Comment on above: Performed By: #### C UU, ADDONUAPLUS #### [address] Calcium [Mass/Vol] 7.7 mg/dL Low 8.6-10.3 [facility] Comment on above: Performed By: #### C UU, ADDONUAPLUS #### [address] Chloride [Moles/Vol] 113 mmol/L High 98-[address] [facility] Comment on above: Performed By: #### C UU, ADDONUAPLUS #### [address] CO2 [Moles/Vol] 20.8 mmol/L Low 21.0-31.0 [facility] Comment on above: Performed By: #### C UU, ADDONUAPLUS #### [address] Creatinine [Mass/Vol] 3.56 mg/dL High 0.70-1.[address] [facility] Comment on above: Performed By: #### C UU, ADDONUAPLUS #### [address] Creatinine Clr Calc Pharmacy 19.[address] [facility] Comment on above: Result Comment: PERF ORMED BY: [place] [id number] PATHOLOGIST NAMED ACCOUNT EXECUTIVE RENETTA MONACO M.D. Performed By: #### C UU, ADDONUAPLUS #### [facility] [address] [place] [address] [place] GFR/1.73 sq M.predicted MDRD (S/P/Bld) [Vol rate/Area] 17.864 mL/min/{1.73_m2} Normal [facility] Comment on above: Performed By: #### C UU, ADDONUAPLUS #### [address] Glucose [Mass/Vol] 70 mg/dL Normal 70-100 [facility] Comment on above: Result Comment: [place] Glucose Reference Range is dependent on time and content of last meal. Glucose of more than 200 mg/dL in a nonstressed, ambulatory subject supports the diagnosis of Diabetes Mellitus. ADA recommended reference range Performed By: #### C UU, ADDONUAPLUS #### [address] Potassium [Moles/Vol] 4.6 mmol/L Normal 3.5-5.[address] [facility] Comment on above: Performed By: #### C UU, ADDONUAPLUS #### [place] [address] [place] Sodium [Moles/Vol] 140 mmol/L Normal 136-145 [facility] Comment on above: Performed By: #### C UU, ADDONUAPLUS #### [place] [address] [place] Urea nitrogen [Mass/Vol] 42 mg/dL High 7-[address] [facility] Comment on above: Performed By: #### C UU, ADDONUAPLUS #### [place] [address] [place] Creatinine [Mass/volume] in UrineOrdered By: Jim Arcos on 2023 Creatinine (U) [Mass/Vol] 109.0 mg/dL 14.0-26.0 [facility] Creatinine, Urine (Random)on 2023 Creatinine, Urine (Random) 109.0 mg/dL High 14.0-26.[address] [facility] Comment on above: Performed By: #### B MP, CBC #### [place] [address] Diff and CBCon 2023 Band form neutrophils/100 WBC (Bld) 24 % High 0-[address] [facility] Comment on above: Performed By: #### B MP, CBC #### [address] Dohle Bodies Slight Normal [facility] Comment on above: Performed By: #### B MP, CBC #### [address] Erythrocyte distribution width (RBC) [Ratio] 15.4 % High 12.0-14.[address] [facility] Comment on above: Performed By: #### B MP, CBC #### [address] Hematocrit (Bld) [Volume fraction] 34.0 % Low 38.8-50.[address] [facility] Comment on above: Performed By: #### B MP, CBC #### [address] Hemoglobin (Bld) [Mass/Vol] 11.2 g/dL Low 13.0-17.[address] [facility] Comment on above: Performed By: #### B MP, CBC #### [address] Lymphocytes/100 WBC (Bld) 6 % Low 18-[address] [facility] Comment on above: Performed By: #### B MP, CBC #### [address] MCH (RBC) [Entitic mass] 27.6 pg Normal 27.5-35.[address] [facility] Comment on above: Performed By: #### B MP, CBC #### [address] MCV (RBC) [Entitic vol] 84.2 fL Normal 83.5-[address] [facility] Comment on above: Performed By: #### B MP, CBC #### [address] Mean Corpuscular HGB Conc 32.8 g/dL Normal 32.5-35.[address] [facility] Comment on above: Performed By: #### B MP, CBC #### [address] Metamyelocytes 5 % High 0-0 [facility] Comment on above: Performed By: #### B MP, CBC #### [place] [address] [place] Monocytes/100 WBC (Bld) 5 % Normal 2-[address] [facility] Comment on above: Performed By: #### B MP, CBC #### [address] Platelet Estimate Decreased Normal Normal [facility] Comment on above: Performed By: #### B MP, CBC #### [address] Platelet mean volume (Bld) [Entitic vol] 8.2 fL Normal 6.6-10.1 [facility] Comment on above: Performed By: #### B MP, CBC #### [address] Platelet Morphology Normal Normal Normal [facility] Comment on above: Result Comment: PERF ORMED BY: [place] [id number] PATHOLOGIST NAMED ACCOUNT EXECUTIVE RENETTA MONACO M.D. Performed By: #### B MP, CBC #### [place] [address] [place] Platelets (Bld) [#/Vol] 121 10*3/uL Low 150-[address] [facility] Comment on above: Performed By: #### B MP, CBC #### [place] [address] [place] RBC (Bld) [#/Vol] 4.04 10*6/uL Normal 3.90-5.60 [facility] Comment on above: Performed By: #### B MP, CBC #### [address] RBC morphology finding Nom (Bld) Normal Normal Normal [facility] Comment on above: Performed By: #### B MP, CBC #### [facility] [address] [place] [address] [place] Segmented neutrophils/100 WBC (Bld) 62 % Normal 50-[address] [facility] Comment on above: Performed By: #### B MP, CBC #### [address] Toxic Granulation Slight Normal [facility] Comment on above: Performed By: #### B MP, CBC #### [facility] [address] [place] [address] Toxic Vacuolation Slight Normal [facility] Comment on above: Performed By: #### B MP, CBC #### [facility] [address] [place] [address] WBC (Bld) [#/Vol] 17.9 10*3/uL High 4.1-10.5 [facility] Comment on above: Performed By: #### B MP, CBC #### [address] ECH echo transthoracicon E[facility] echo transthoracic [facility] Main [place] [address] [place] [address] Echocardiogram Signed Patient: Fede Guerra SR MR#: [id number] : 1955 Acct:[id number] Age/Sex: 68 / M ADM Date: 03/15/23 Loc: Room: [address] [place] [address] Type: ADM IN Attending Dr: Zeinab Poole [...] Donis England MD 03/16/[address] [facility] Eosinophil,Urineon 3 Eosinophil,Urine 2 % High 0-1 [facility] Comment on above: Result Comment: PERF ORMED BY: [place] [id number] PATHOLOGIST NAMED ACCOUNT EXECUTIVE RENETTA MONACO M.D. Performed By: #### B MP, CBC #### [address] Eosinophils detection in uri ne sediment by Black stainOrdered By: Jim Arcos on 2023 Eosinophils Black stain Ql (Urine sed) 2 % 0-1 [facility] Lactate [Moles/volume] in Se rum or PlasmaOrdered By: Gilbert [place] on 2023 Lactate [Moles/Vol] 1.3 mmol/L Normal 0.5-2.2 [facility] Comment on above: Result Comment: PERF ORMED BY: [place] [id number] PATHOLOGIST NAMED ACCOUNT EXECUTIVE JIANLAN SUN M.D. Performed By: #### C UU, ADDONUAPLUS #### [facility] [address] [place] [address] [place] Lactic Acidon 2023 Lactate [Moles/Vol] 1.8 mmol/L Normal 0.5-2.2 [facility] Comment on above: Result Comment: PERF ORMED BY: [place] [id number] PATHOLOGIST NAMED ACCOUNT EXECUTIVE RENETTA MONACO M.D. Performed By: #### L ACTIC, HS TROP #### [place] [address] [place] Metamyelocytes/100 WBC Manua l cnt (Bld)Ordered By: Gilbert [place] on 2023 Metamyelocytes/100 WBC (Bld) 5 % 0-0 [facility] Potassiumon 2023 Potassium [Moles/Vol] 4.7 mmol/L Normal 3.5-5.[address] [facility] Comment on above: Result Comment: PERF ORMED BY: [place] [address] PATHOLOGIST NAMED ACCOUNT EXECUTIVE RENETTA MONACO M.D. Performed By: #### B MP, CBC #### [place] [address] [place] Potassium [Moles/volume] in UrineOrdered By: Jim Arcos on 2023 Potassium (U) [Moles/Vol] 39.7 mmol/L [facility] Comment on above: No reference range e stablished Potassium, Urine (Random)on 2023 Potassium, Urine (Random) 39.7 mmol/L Normal [facility] Comment on above: Result Comment: No r eference range established PERFORMED BY: [place] [id number] PATHOLOGIST NAMED ACCOUNT EXECUTIVE RENETTA MONACO M.D. Performed By: #### B MP, CBC #### [place] [id number] [place] Protein [Mass/volume] in Ser um or PlasmaOrdered By: Gilbert [place] on 2023 Protein [Mass/Vol] 5.6 g/dL Low 6.4-8.9 [facility] Comment on above: Performed By: #### C UChelle, GUSTAVOONRENZOPLUS #### [address] Protein [Mass/volume] in Uri neOrdered By: Jim Arcos on 2023 Protein (U) [Mass/Vol] 103 mg/dL High 0-9 [facility] Comment on above: Performed By: #### B MP, CBC #### [address] Serum globulin measurement b y calculation (mass/volume)Ordered By: Gilbert [place] on 2023 Globulin (S) [Mass/Vol] 2.5 g/dL Normal [facility] Comment on above: Performed By: #### C UChelle, GUSTAVOONRENZOPLUS #### [address] Serum or plasma albumin/glob ulin mass ratioOrdered By: Gilbert [place] on 2023 Albumin/Globulin [Mass ratio] 1.2 {ratio} Normal [facility] Comment on above: Performed By: #### C UU, ADDONRENZOPLUS #### [address] Sodium [Moles/volume] in Uri neOrdered By: Jim Arcos on 2023 Sodium (U) [Moles/Vol] 67 mmol/L Normal [facility] Comment on above: No reference range e stablished Result Comment: No r eference range established Performed By: #### B MP, CBC #### [facility] [address] [place] [address] [place] Troponin I High Sensitivityo n 2023 Troponin I High Sensitivity 93.2 pg/mL Off scale high 0.0-20.[address] [facility] Comment on above: Result Comment: Crit ical Result : Called to and read back by: STEFANIE KENDALL at: 2023 06:27:35 by:ZOLTAN PERFORMED BY: [place] [id number] PATHOLOGIST NAMED ACCOUNT EXECUTIVE RENETTA MONACO M.D. Performed By: #### B MP, CBC #### [facility] [address] [place] [address] Troponin I High Sensitivity 123.7 pg/mL Off scale high 0.0-20.[address] [facility] Comment on above: Order Comment: ARRIETA D AGAIN @0320, NO ANSWER Result Comment: Crit ical Result : Called to and read back by: MIGUEL KENDALL at: 2023 03:27:22 by:LORENZO PERFORMED BY: [place] [address] PATHOLOGIST NAMED ACCOUNT EXECUTIVE RENETTA MONACO M.D. Performed By: #### L ACTIC, HS TROP #### [facility] [address] [place] [address] Troponin I.cardiac [Mass/vol ume] in Serum or Plasma by Detection limit <= 0.01 ng/Ordered By: Gilbert [place] on 2023 Troponin I.cardiac DL <= 0.01 ng/mL [Mass/Vol] 93.2 pg/mL 0.0-20.0 [facility] Comment on above: Critical Result : Ca lled to and read back by: STEFANIE KENDALL at: 2023 06:27:35 by:ZOLTAN US renal BIon 2023 US renal BI [facility] [address] Ultrasound Report Signed Patient: Fede Guerra SR MR#: [id number] : 1955 Acct:[id number] Age/Sex: 68 / M ADM Date: 03/15/23 Loc: Room: [address] [place] [address] Type: ADM IN Attending Dr: Zeinab Poole [...] Christie Durán M.D.03/16/2023 9:49 AM Dictation Location: [place] [address] Tech: Leah Foreman Transcribed By: CLIFFORD 03/16/23948 Dictated By: Christie Durán MD [id number] Signed By: 03/16/[address] [facility] Automated erythrocytes count in urine sediment (number/area)Ordered By: River Alberto on 03-14-2023 RBC Auto (Urine sed) [#/Area] 5-9 [HPF] 0-4 [facility] Automated leukocytes count i n urine sediment (number/area)Ordered By: River Alberto on 03-14-2023 WBC Auto (Urine sed) [#/Area] Innumerable [HPF] 0-4 [facility] Automated urine color determ inationOrdered By: River Alberto on 03-14-2023 Color (U) Yellow Normal Yellow [facility] Comment on above: Order Comment: Name Collection Type:: Hernandez Catheter Performed By: #### B MP, CBC #### [facility] [address] [place], [place] [address] Bilirubin Test strip Ql (U)O rdered By: River Alberto on 03-14-2023 Bilirubin Ql (U) Negative Negative [facility] Dipstick and Microscopicon 1 05-15-2022 Appearance (U) Turbid Critically abnormal Clear [facility] Comment on above: Order Comment: Name Collection Type:: Hernandez Catheter Performed By: #### B MP, CBC #### [facility] [address] [place] [address] [place] Bacteria,Urine 4+ High None Seen [facility] Comment on above: Order Comment: Name Collection Type:: Hernandez Catheter Performed By: #### B MP, CBC #### [facility] [address] [place] [address] [place] Bilirubin,Urine Negative Normal Negative [facility] Comment on above: Order Comment: Name Collection Type:: Hernandez Catheter Performed By: #### B MP, CBC #### [place] [address] [place] Glucose Ql (U) Normal Normal Normal [facility] Comment on above: Order Comment: Name Collection Type:: Hernandez Catheter Performed By: #### B MP, CBC #### [place] [address] [place] Hyaline Casts,Urine None Seen Normal 0-8 [facility] Comment on above: Order Comment: Name Collection Type:: Hernandez Catheter Performed By: #### B MP, CBC #### [place] [address] [place] Ketones Ql (U) Negative Normal Negative [facility] Comment on above: Order Comment: Name Collection Type:: Hernandez Catheter Performed By: #### B MP, CBC #### [place] [address] [place] Leukocyte esterase Test strip Ql (U) 4+ High Negative [facility] Comment on above: Order Comment: Name Collection Type:: Hernandez Catheter Performed By: #### B MP, CBC #### [place] [address] [place] Nitrite,Urine Negative Normal Negative [facility] Comment on above: Order Comment: Name Collection Type:: Hernandez Catheter Performed By: #### B MP, CBC #### [place] [address] [place] Occult Blood,Urine 3+ High Negative [facility] Comment on above: Order Comment: Name Collection Type:: Hernandez Catheter Result Comment: PERF ORMED BY: [place] [address] PATHOLOGIST NAMED ACCOUNT EXECUTIVE RENETTA MONACO M.D. Performed By: #### B MP, CBC #### [address] RBC,Urine 5-9 High 0-[address] [facility] Comment on above: Order Comment: Name Collection Type:: Hernandez Catheter Performed By: #### B MP, CBC #### [address] Specificy Merkel,Urine 1.009 Normal 1.001-1.[address] [facility] Comment on above: Order Comment: Name Collection Type:: Hernandez Catheter Performed By: #### B MP, CBC #### [address] Squamous Epithelial Cell,Urine None Seen Normal 0-[address] [facility] Comment on above: Order Comment: Name Collection Type:: Hernandez Catheter Performed By: #### B MP, CBC #### [address] Urobilinogen,Urine Normal Normal Normal [facility] Comment on above: Order Comment: Name Collection Type:: Hernandez Catheter Performed By: #### B MP, CBC #### [address] WBC,Urine Innumerable High 0-[address] [facility] Comment on above: Order Comment: Name Collection Type:: Hernandez Catheter Performed By: #### B MP, CBC #### [address] Yeast,Urine None Seen Normal None Seen [facility] Comment on above: Order Comment: Name Collection Type:: Hernandez Catheter Result Comment: PERF ORMED BY: [place] [address] PATHOLOGIST NAMED ACCOUNT EXECUTIVE RENETTA MONACO M.D. Performed By: #### B MP, CBC #### [address] Ketones Auto test strip (U) [Mass/Vol]Ordered By: River Alberto on 03-14-2023 Ketones (U) [Mass/Vol] Negative Negative [facility] - UrinalysisOrder ed By: River Alberto on 03-14-2023 Hyaline casts LM Ql (Urine sed) None seen [LPF] 0-8 [facility] Nitrite Test strip Ql (U)Ord ered By: River Alberto on 03-14-2023 Nitrite Ql (U) Negative Negative [facility] Specific gravity Auto test s trip (U) [Rel density]Ordered By: River Alberto on 03-14-2023 Specific gravity (U) [Rel density] 1.009 1.001-1.030 [facility] Squamous epithelial cells de tection in urine sediment by light microscopyOrdered By: River Alberto on 03-14-2023 Epithelial cells.squamous LM Ql (Urine sed) None seen [HPF] 0-2 [facility] Urine Cultureon 03-14-2023 Bacteria identified Cx Nom (U) ORGANISM: Enterococcus faecalis (O:ENTFAC) [place] Count >100,000 ORGANISM: Klebsiella pneumoniae (ESBL) (O:KLEPNEESBL) [place] Count >100,000 ORGANISM: Acinetobacter crystal/nosocom grp (O:ACIBAUNOS) [place] Count 50,000 Organism Comments MULTIDRUG RESISTANT ORGANISM [...] RESISTANT TO ALL B-LACTAM DRUGS. PERFORMED BY: [address] [place] [address] PATHOLOGIST NAMED ACCOUNT EXECUTIVE RENETTA MONACO M.D. Normal [facility] Comment on above: Performed By: #### L ANDREW BRADFORD TROP #### [facility] [address] [place] [address] [place] Urine bacteria detection by automated methodOrdered By: River Alberto on 03-14-2023 Bacteria Auto Ql (U) 4+ None Seen [facility] Urine clarity by refractomet ry automatedOrdered By: River Alberto on 03-14-2023 Clarity Refractometry automated (U) Turbid Clear [facility] Urine culture routineOrdered By: River Alberto on 03-14-2023 Bacteria identified Cx Nom (U) Enterococcus faecalis [facility] Bacteria identified Cx Nom (U) Klebsiella pneumoniae (ESBL) [facility] Bacteria identified Cx Nom (U) Acinetobacter crystal/nosocom grp [facility] Urine glucose measurement by automated test strip (mass/volume)Ordered By: River Alberto on 03-14-2023 Glucose Auto test strip (U) [Mass/Vol] Normal mg/dL Normal [facility] Urine hemoglobin detection b y automated test stripOrdered By: River Alberto on 03-14-2023 Hemoglobin Auto test strip Ql (U) 3+ Negative [facility] Urine leukocyte esterase det ection by automated test stripOrdered By: River Alberto on 03-14-2023 Leukocyte esterase Auto test strip Ql (U) 4+ Negative [facility] Urine pH measurement by auto mated test stripOrdered By: River Alberto on 03-14-2023 pH (U) 6.0 [pH] Normal 5.0-9.0 [facility] Comment on above: Order Comment: Name Collection Type:: Hernandez Catheter Performed By: #### B MP, CBC #### [facility] [address] [place] [address] [place] Urine protein measurement by automated test strip (mass/volume)Ordered By: River Alberto on 03-14-2023 Protein (U) [Mass/Vol] 30 mg/dL High Negative [facility] Comment on above: Order Comment: Name Collection Type:: Hernandez Catheter Performed By: #### B MP, CBC #### [facility] [address] [place] [id number] [place] Urobilinogen Auto test strip (U) [Mass/Vol]Ordered By: River Alberto on 03-14-2023 Urobilinogen (U) [Mass/Vol] Normal mg/dL Normal [facility] Yeast detection in urine sed iment by light microscopyOrdered By: River Alberto on 03-14-2023 Yeast LM Ql (Urine sed) None seen [HPF] None Se en [facility] CNPNon 03-01-2023 CNPN Normal [facility] Alanine aminotransferase [En zymatic activity/volume] in Serum or PlasmaOrdered By: William Carver on 02-14-2023 ALT [Catalytic activity/Vol] 7 U/L Normal 7-52 [facility] Comment on above: Performed By: #### B MP, CBC #### [facility] [address] [place] [address] [place] Albumin [Mass/volume] in Ser um or Plasma by Bromocresol green (BCG) dye binding methoOrdered By: William Carver on 02-14-2023 Albumin BCG dye [Mass/Vol] 3.9 g/dL 3.5-5.7 [facility] Alkaline phosphatase [Enzyma tic activity/volume] in Serum or PlasmaOrdered By: William Carver on 02-14-2023 ALP [Catalytic activity/Vol] 55 U/L Normal 34-104 [facility] Comment on above: Performed By: #### B MP, CBC #### [facility] [address] [place] [address] Aspartate aminotransferase [ Enzymatic activity/volume] in Serum or PlasmaOrdered By: William Carver on 02-14-2023 AST [Catalytic activity/Vol] 10 U/L Low 13-39 [facility] Comment on above: Performed By: #### B MP, CBC #### [facility] [address] [place] [address] [place] Automated basophil %Ordered By: William Carver on 02-14-2023 Basophils/100 WBC (Bld) 1.1 % Normal . F [facility] Comment on above: Performed By: #### B MP, CBC #### [facility] [address] [place] [address] [place] Automated basophil countOrde red By: William Carver on 02-14-2023 Basophils (Bld) [#/Vol] 0.1 10*3/uL Normal 0.0-0.2 [facility] Comment on above: Result Comment: PERF ORMED BY: [place] [address] PATHOLOGIST NAMED ACCOUNT EXECUTIVE RENETTA MONACO M.D. Performed By: #### B MP, CBC #### [address] Automated blood monocyte cou ntOrdered By: William Carver on 02-14-2023 Monocytes (Bld) [#/Vol] 0.6 10*3/uL Normal 0.0-0.8 [facility] Comment on above: Performed By: #### B MP, CBC #### [address] Automated eosinophil %Ordere d By: William Carver on 02-14-2023 Eosinophils/100 WBC (Bld) 3.2 % Normal . [facility] Comment on above: Performed By: #### B MP, CBC #### [address] Automated eosinophil countOr dered By: William Carver on 02-14-2023 Eosinophils (Bld) [#/Vol] 0.2 10*3/uL Normal 0.0-0.45 [facility] Comment on above: Performed By: #### B MP, CBC #### [address] Automated erythrocytes count in urine sediment (number/area)Ordered By: William Carver on 02-14-2023 RBC Auto (Urine sed) [#/Area] 1-2 [HPF] 0-4 [facility] Automated leukocytes count i n urine sediment (number/area)Ordered By: William Carver on 02-14-2023 WBC Auto (Urine sed) [#/Area] 50-100 [HPF] 0-4 [facility] Automated monocyte %Ordered By: William Carver on 02-14-2023 Monocytes/100 WBC (Bld) 9.8 % Normal . F [facility] Comment on above: Performed By: #### B MP, CBC #### [address] [place] [address] [place] Automated neutrophil %Ordere d By: William Carver on 02-14-2023 Neutrophils/100 WBC (Bld) 55.6 % Normal . [facility] Comment on above: Performed By: #### B MP, CBC #### [address] Automated urine color determ inationOrdered By: William Carver on 02-14-2023 Color (U) Yellow Normal Yellow [facility] Comment on above: Order Comment: Name Collection Type:: Hernandez Catheter Performed By: #### B MP, CBC #### [address] Automated urine hyaline cast s count (number/volume)Ordered By: William Carver on 02-14-2023 Hyaline casts Auto (U) [#/Vol] 5-9 [LPF] 0-1 [facility] Automated urine sediment alice cium oxalate crystal count by microscopy (number/high powOrdered By: William Carver on 02-14-2023 Calcium oxalate crystals LM.HPF (Urine sed) [#/Area] 1+ [HPF] [facility] Basic Metabolic Panelon 01-27 GFR/1.73 sq M.predicted MDRD (S/P/Bld) [Vol rate/Area] mL/min/{1.73_m2} Normal [facility] Comment on above: Performed By: #### B MP, CBC #### [facility] [address] [place] [address] Bilirubin Test strip Ql (U)O rdered By: William Carver on 02-14-2023 Bilirubin Ql (U) Negative Negative [facility] Bilirubin.direct [Mass/volum e] in Serum or PlasmaOrdered By: William Carver on 02-14-2023 Bilirubin.direct [Mass/Vol] 0.00 mg/dL 0.03-0.18 [facility] Comment on above: If the DBIL is less than 0.1, IBIL is not able to becalculated. Bilirubin.total [Mass/volume ] in Serum or PlasmaOrdered By: William Carver on 02-14-2023 Bilirubin [Mass/Vol] 0.5 mg/dL Normal 0.3-1.0 [facility] Comment on above: Performed By: #### B MP, CBC #### [facility] [address] [place] [id number] [facility] CT abdomen pelvis w conon CT abdomen pelvis w con [facility] Main [place] [address] [place] [address] CT Scan Report Signed Patient: Fede Guerra SR MR#: [id number] : 1955 Acct:[id number] Age/Sex: 67 / M ADM Date: 02/14/23 Loc: ER Room: Type: [facility] ER Attending Dr: Copies to: William [...] Roger Diana M.D.02/14/2023 5:33 PM Dictation Location: [place] [address] Transcribed By: [facility] 02/14/231732 Dictated By: Roger Diana DO 02/14/231724 Signed By: 02/14/231732 Normal [facility] Calcium [Mass/volume] in Ser um or PlasmaOrdered By: William Carver on 02-14-2023 Calcium [Mass/Vol] 9.4 mg/dL Normal 8.6-10.3 [facility] Comment on above: Performed By: #### B MP, CBC #### [address] Carbon dioxide, total [Moles /volume] in Serum or PlasmaOrdered By: William Carver on 02-14-2023 CO2 [Moles/Vol] 26.8 mmol/L Normal 21.0-31.0 [facility] Comment on above: Performed By: #### B MP, CBC #### [address] Casts typing in urine sedime nt by light microscopyOrdered By: William Carver on 02-14-2023 Casts LM Nom (Urine sed) None seen [LPF] None Seen [facility] Chloride [Moles/volume] in S jennifer or PlasmaOrdered By: William Carver on 02-14-2023 Chloride [Moles/Vol] 109 mmol/L High 98-107 [facility] Comment on above: Performed By: #### B MP, CBC #### [address] Complete Blood Count Auto Di ffon 02-14-2023 Mean Corpuscular HGB Conc 33.0 g/dL Normal 32.5-35.[address] [facility] Comment on above: Performed By: #### B MP, CBC #### [facility] [address] [place] [address] [place] Monocytes/100 WBC (Bld) 16.55 % Normal 0.00-20.[address] [facility] Comment on above: Performed By: #### B MP, CBC #### [place] [address] [place] NRBC% 0.1 /100{WBC} Normal 0-0.5 [facility] Comment on above: Performed By: #### B MP, CBC #### [place] [address] [place] Creatinine [Mass/volume] in Serum or PlasmaOrdered By: William Carver on 02-14-2023 Creatinine [Mass/Vol] 0.65 mg/dL Low 0.70-1.30 [facility] Comment on above: Performed By: #### B MP, CBC #### [place] [address] [place] Dipstick and Microscopicon 1 04-16-2022 Appearance (U) Turbid Critically abnormal Clear [facility] Comment on above: Order Comment: Name Collection Type:: Hernandez Catheter Performed By: #### B MP, CBC #### [place] [address] [place] Bacteria,Urine None Seen Normal None Seen [facility] Comment on above: Order Comment: Name Collection Type:: Hernandez Catheter Performed By: #### B MP, CBC #### [place] [address] [place] Bilirubin,Urine Negative Normal Negative [facility] Comment on above: Order Comment: Name Collection Type:: Hernandez Catheter Performed By: #### B MP, CBC #### [place] [address] [place] Calcium Oxalate Crystals,Urine 1+ Normal [facility] Comment on above: Order Comment: Name Collection Type:: Hernandez Catheter Performed By: #### B MP, CBC #### [place] [address] [place] Fine Granular Casts,Urine 3-4 High 0-[address] [facility] Comment on above: Order Comment: Name Collection Type:: Hernandez Catheter Performed By: #### B MP, CBC #### [facility] [address] Glucose Ql (U) Normal Normal Normal [facility] Comment on above: Order Comment: Name Collection Type:: Hernandez Catheter Performed By: #### B MP, CBC #### [facility] [address] [place] [address] [place] Hyaline Casts,Urine 5-9 High 0-1 [facility] Comment on above: Order Comment: Name Collection Type:: Hernandez Catheter Performed By: #### B MP, CBC #### [facility] [address] Ketones Ql (U) Trace High Negative [facility] Comment on above: Order Comment: Name Collection Type:: Hernandez Catheter Performed By: #### B MP, CBC #### [facility] [address] Leukocyte esterase Test strip Ql (U) 3+ High Negative [facility] Comment on above: Order Comment: Name Collection Type:: Hernandez Catheter Performed By: #### B MP, CBC #### [place] [address] [place] Nitrite,Urine Negative Normal Negative [facility] Comment on above: Order Comment: Name Collection Type:: Hernandez Catheter Performed By: #### B MP, CBC #### [facility] [address] [place] [address] [place] Occult Blood,Urine Trace High Negative [facility] Comment on above: Order Comment: Name Collection Type:: Hernandez Catheter Result Comment: PERF ORMED BY: [place] [address] PATHOLOGIST NAMED ACCOUNT EXECUTIVE RENETTA MONACO M.D. Performed By: #### B MP, CBC #### [place] [address] [place] Othe Crystals,Urine None Seen Normal [facility] Comment on above: Order Comment: Name Collection Type:: Hernandez Catheter Performed By: #### B MP, CBC #### [address] Other Casts,Urine None Seen Normal None Seen [facility] Comment on above: Order Comment: Name Collection Type:: Hernandez Catheter Performed By: #### B MP, CBC #### [address] RBC,Urine 1-2 Normal 0-[address] [facility] Comment on above: Order Comment: Name Collection Type:: Hernandez Catheter Performed By: #### B MP, CBC #### [address] Specificy Merkel,Urine 1.017 Normal 1.001-1.[address] [facility] Comment on above: Order Comment: Name Collection Type:: Hernandez Catheter Performed By: #### B MP, CBC #### [address] Squamous Epithelial Cell,Urine 0-1 Normal 0-[address] [facility] Comment on above: Order Comment: Name Collection Type:: Hernandez Catheter Performed By: #### B MP, CBC #### [address] Urobilinogen,Urine Normal Normal Normal [facility] Comment on above: Order Comment: Name Collection Type:: Hernandez Catheter Performed By: #### B MP, CBC #### [place] [address] [place] WBC,Urine 50-100 High 0-[address] [facility] Comment on above: Order Comment: Name Collection Type:: Hernandez Catheter Performed By: #### B MP, CBC #### [address] Yeast,Urine None Seen Normal None Seen [facility] Comment on above: Order Comment: Name Collection Type:: Hernandez Catheter Result Comment: PERF ORMED BY: [place] [address] PATHOLOGIST NAMED ACCOUNT EXECUTIVE RENETTA MONACO M.D. Performed By: #### B MP, CBC #### [address] [place] [address] [place] Erythrocyte distribution wid th [Ratio] by Automated countOrdered By: William Carver on 02-14-2023 Erythrocyte distribution width (RBC) [Ratio] 14.9 % High 12.0-14.8 [facility] Comment on above: Performed By: #### B MP, CBC #### [address] Erythrocytes [#/volume] in B lood by Automated countOrdered By: William Carver on 02-14-2023 RBC (Bld) [#/Vol] 4.50 10*6/uL Normal 3.90-5.60 [facility] Comment on above: Performed By: #### B MP, CBC #### [address] Fine granular cast count in urine sediment by microscopy (number/low power field )Ordered By: William Carver on 02-14-2023 Fine Granular Casts LM.LPF (Urine sed) [#/Area] 3-4 [LPF] 0-1 [facility] Glucose [Mass/volume] in Ser um or PlasmaOrdered By: William Carver on 02-14-2023 Glucose [Mass/Vol] 101 mg/dL High 70-100 [facility] Comment on above: ADA recommended refe rence rangeRandom Glucose Reference Range is dependent on time and content of last meal. Glucose of more than 200 mg/dL in a nonstressed, ambulatory subject supports the diagnosis of Diabetes Mellitus. Result Comment: [place] Glucose Reference Range is dependent on time and content of last meal. Glucose of more than 200 mg/dL in a nonstressed, ambulatory subject supports the diagnosis of Diabetes Mellitus. ADA recommended reference range Performed By: #### B MP, CBC #### [address] Hematocrit [Volume Fraction] of Blood by Automated countOrdered By: William Carver on 02-14-2023 Hematocrit (Bld) [Volume fraction] 37.2 % Low 38.8-50.0 [facility] Comment on above: Performed By: #### B MP, CBC #### [facility] [address] Hemoglobin [Mass/volume] in BloodOrdered By: William Carver on 02-14-2023 Hemoglobin (Bld) [Mass/Vol] 12.3 g/dL Low 13.0-17.0 [facility] Comment on above: Performed By: #### B MP, CBC #### [address] Hepatic Panelon 02-14-2023 Albumin [Mass/Vol] 3.9 g/dL Normal 3.5-5.7 [facility] Comment on above: Performed By: #### B MP, CBC #### [address] Bilirubin,Indirect 0.5 mg/dL Normal [facility] Comment on above: Performed By: #### B MP, CBC #### [address] Bilirubin.indirect [Mass/Vol] 0.00 mg/dL Low 0.03-0.[address] [facility] Comment on above: Result Comment: If t he DBIL is less than 0.1, IBIL is not able to be calculated. Performed By: #### B MP, CBC #### [address] Ketones Auto test strip (U) [Mass/Vol]Ordered By: William Carver on 02-14-2023 Ketones (U) [Mass/Vol] Trace Negative [facility] Leukocytes [#/volume] correc mayte for nucleated erythrocytes in Blood by Automated counOrdered By: William Carver on 02-14-2023 WBC corrected for nucl RBC Auto (Bld) [#/Vol] 6.0 10*3/uL 4.1-10.5 [facility] Leukocytes [#/volume] in Blo od by Automated countOrdered By: William Carver on 02-14-2023 WBC (Bld) [#/Vol] 6.0 10*3/uL Normal 4.1-10.5 [facility] Comment on above: Performed By: #### B MP, CBC #### [facility] [address] [place] [address] Lipase [Enzymatic activity/v olume] in Serum or PlasmaOrdered By: William Carver on 02-14-2023 Lipase [Catalytic activity/Vol] 7.0 U/L Low 11.0-82.0 [facility] Comment on above: Result Comment: PERF ORMED BY: [place] [address] PATHOLOGIST NAMED ACCOUNT EXECUTIVE RENETTA MONACO M.D. Performed By: #### B MP, CBC #### [address] Lymphocytes [#/volume] in Bl ood by Automated countOrdered By: William Carver on 02-14-2023 Lymphocytes (Bld) [#/Vol] 1.8 10*3/uL Normal 1.00-4.8 [facility] Comment on above: Performed By: #### B MP, CBC #### [place] [address] [place] Lymphocytes/100 leukocytes i n Blood by Automated countOrdered By: William Carver on 02-14-2023 Lymphocytes/100 WBC (Bld) 30.3 % Normal . [facility] Comment on above: Performed By: #### B MP, CBC #### [facility] [address] [place] [address] [place] MCH [Entitic mass] by Automa mayte countOrdered By: William Carver on 02-14-2023 MCH (RBC) [Entitic mass] 27.3 pg Low 27.5-35.2 [facility] Comment on above: Performed By: #### B MP, CBC #### [place] [address] [place] MCHC Auto (RBC) [Mass/Vol]Or dered By: William Carver on 02-14-2023 MCHC (RBC) [Mass/Vol] 33.0 g/dL 32.5-35.6 [facility] MCV [Entitic volume] by Auto mated countOrdered By: William Carver on 02-14-2023 MCV (RBC) [Entitic vol] 82.7 fL Low 83.5-101 F [facility] Comment on above: Performed By: #### B MP, CBC #### [facility] [address] Monocyte distribution width [Entitic volume] in Blood by AutomatedOrdered By: William Wen on 02-14-2023 Monocyte distribution width Auto (Bld) [Entitic vol] 16.55 % 0.00-20.00 [facility] Neutrophils [#/volume] in Bl ood by Automated countOrdered By: William Carver on 02-14-2023 Neutrophils (Bld) [#/Vol] 3.3 10*3/uL Normal 1.8-7.7 [facility] Comment on above: Performed By: #### B MP, CBC #### [address] Nitrite Test strip Ql (U)Ord ered By: William Carver on 02-14-2023 Nitrite Ql (U) Negative Negative [facility] No Panel InformationOrdered By: William Carver on 02-14-2023 Estimated GFR (CKD-EPI) > 60.0 mL/Min [facility] Creatinine Clearance (Chem N/A [facility] Nucleated erythrocytes [Pres ence] in Blood by Automated countOrdered By: William Carver on 02-14-2023 Nucleated RBC Auto Ql (Bld) 0.1 /100{WBC} 0-0.5 [facility] Platelet mean volume [Entiti c volume] in Blood by Automated countOrdered By: William Carver on 02-14-2023 Platelet mean volume (Bld) [Entitic vol] 7.7 fL Normal 6.6-10.1 [facility] Comment on above: Performed By: #### B MP, CBC #### [facility] [address] [place] [address] Platelets [#/volume] in Bloo d by Automated countOrdered By: William Carver on 02-14-2023 Platelets (Bld) [#/Vol] 260 10*3/uL Normal 150-450 [facility] Comment on above: Performed By: #### B MP, CBC #### [facility] [address] [place] [address] Potassium [Moles/volume] in Serum or PlasmaOrdered By: William Carver on 02-14-2023 Potassium [Moles/Vol] 3.7 mmol/L Normal 3.5-5.1 [facility] Comment on above: Performed By: #### B MP, CBC #### [address] Protein [Mass/volume] in Ser um or PlasmaOrdered By: William Carver on 02-14-2023 Protein [Mass/Vol] 6.9 g/dL Normal 6.4-8.9 [facility] Comment on above: Performed By: #### B MP, CBC #### [address] Serum globulin measurement b y calculation (mass/volume)Ordered By: William Carver on 02-14-2023 Globulin (S) [Mass/Vol] 3.0 g/dL Normal [facility] Comment on above: Performed By: #### B MP, CBC #### [facility] [address] [place] [address] Serum or plasma albumin/glob ulin mass ratioOrdered By: William Carver on 02-14-2023 Albumin/Globulin [Mass ratio] 1.3 {ratio} Normal [facility] Comment on above: Performed By: #### B MP, CBC #### [address] Serum or plasma anion gap de terminationOrdered By: William Carver on 02-14-2023 Anion gap [Moles/Vol] 7.9 mmol/L Normal 6.0-15.0 [facility] Comment on above: Performed By: #### B MP, CBC #### [address] Serum or plasma non-glucuron idated bilirubin measurement (mass/volume)Ordered By: William Carver on 02-14-2023 Bilirubin.indirect [Mass/Vol] 0.5 mg/dL [facility] Sodium [Moles/volume] in Ser um or PlasmaOrdered By: William Wen on 02-14-2023 Sodium [Moles/Vol] 140 mmol/L Normal 136-145 [facility] Comment on above: Performed By: #### B VERNA, CBC #### [facility] [address] [place] [id number] [facility] Specific gravity Auto test s trip (U) [Rel density]Ordered By: William Wen on 02-14-2023 Specific gravity (U) [Rel density] 1.017 1.001-1.030 [facility] Squamous epithelial cells de tection in urine sediment by light microscopyOrdered By: William Carver on 02-14-2023 Epithelial cells.squamous LM Ql (Urine sed) 0-1 [HPF] 0-2 [facility] Urea nitrogen [Mass/volume] in Serum or PlasmaOrdered By: William Carver on 02-14-2023 Urea nitrogen [Mass/Vol] 9 mg/dL Normal 7-25 [facility] Comment on above: Performed By: #### B VERNA, CBC #### [facility] [address] Urine Cultureon 02-14-2023 Bacteria identified Cx Nom (U) ORGANISM: Acinetobacter crystal/nosocom grp (O:ACIBAUNOS) Minto Count 15,000 Aerobic SCOTT Charge (NMIC56) ----- [...] RESISTANT TO ALL B-LACTAM DRUGS. PERFORMED BY: [place] [address] PATHOLOGIST NAMED ACCOUNT EXECUTIVE RENETTA MONACO M.D. Normal [facility] Comment on above: Performed By: #### B VERNA, CBC #### [facility] [address] [place] [address] Urine bacteria detection by automated methodOrdered By: William Carver on 02-14-2023 Bacteria Auto Ql (U) None seen None Seen [facility] Urine clarity by refractomet ry automatedOrdered By: William Carver on 02-14-2023 Clarity Refractometry automated (U) Turbid Clear [facility] Urine culture routineOrdered By: William Carver on 02-14-2023 Bacteria identified Cx Nom (U) Acinetobacter crystal/nosocom grp [facility] Urine glucose measurement by automated test strip (mass/volume)Ordered By: William Carver on 02-14-2023 Glucose Auto test strip (U) [Mass/Vol] Normal mg/dL Normal [facility] Urine hemoglobin detection b y automated test stripOrdered By: William Carver on 02-14-2023 Hemoglobin Auto test strip Ql (U) Trace Negative [facility] Urine leukocyte esterase det ection by automated test stripOrdered By: William Carver on 02-14-2023 Leukocyte esterase Auto test strip Ql (U) 3+ Negative [facility] Urine pH measurement by auto mated test stripOrdered By: William Carver on 02-14-2023 pH (U) 7.5 [pH] Normal 5.0-9.0 [facility] Comment on above: Order Comment: Name Collection Type:: Hernandez Catheter Performed By: #### B VERNA, CBC #### [place] [id number] [facility] Urine protein measurement by automated test strip (mass/volume)Ordered By: William Carver on 02-14-2023 Protein (U) [Mass/Vol] 300 mg/dL High Negative [facility] Comment on above: Order Comment: Name Collection Type:: Hernandez Catheter Performed By: #### B MP, CBC #### [facility] [address] [place] [address] Urine sediment crystal ident ification by light microscopyOrdered By: William Carver on 02-14-2023 Crystals LM Nom (Urine sed) None seen [HPF] [facility] Urobilinogen Auto test strip (U) [Mass/Vol]Ordered By: William Carver on 02-14-2023 Urobilinogen (U) [Mass/Vol] Normal mg/dL Normal [facility] Yeast detection in urine sed iment by light microscopyOrdered By: William Carver on 02-14-2023 Yeast LM Ql (Urine sed) None seen [HPF] None Se en [facility] Automated basophil %Ordered By: Ray Gainesr on 02-06-2023 Basophils/100 WBC (Bld) 1.1 % Normal . [facility] Comment on above: Order Comment: for m uscle spasms, I let the charge @rn, she is going to let hany huitron,pls. Performed By: #### L ACTIC, HS TROP #### [facility] [address] [place] [address] Automated basophil countOrde red By: Ray Floresomar on 02-06-2023 Basophils (Bld) [#/Vol] 0.0 10*3/uL Normal 0.0-0.2 [facility] Comment on above: Order Comment: for m uscle spasms, I let the charge @rn, she is going to let hany huitronpls. Result Comment: PERF ORMED BY: [place] [address] PATHOLOGIST NAMED ACCOUNT EXECUTIVE RENETTA MONACO M.D. Performed By: #### L ACTIC, HS TROP #### [address] Automated blood monocyte cou ntOrdered By: Obaydah Daromar on 02-06-2023 Monocytes (Bld) [#/Vol] 0.3 10*3/uL Normal 0.0-0.8 [facility] Comment on above: Order Comment: for m uscle spasms, I let the charge @rn, she is going to let rn lila know,pls. Performed By: #### L ACTIC, HS TROP #### [facility] [address] [place] [address] Automated eosinophil %Ordere d By: Obaydah Daromar on 02-06-2023 Eosinophils/100 WBC (Bld) 6.5 % Normal . [facility] Comment on above: Order Comment: for m uscle spasms, I let the charge @rn, she is going to let rn lila know,pls. Performed By: #### L ACTIC, HS TROP #### [facility] [address] [place] [address] Automated eosinophil countOr dered By: Obbrandondachris Daromar on 02-06-2023 Eosinophils (Bld) [#/Vol] 0.2 10*3/uL Normal 0.0-0.45 [facility] Comment on above: Order Comment: for m uscle spasms, I let the charge @rn, she is going to let rn lila know,pls. Performed By: #### L ACTIC, HS TROP #### [facility] [address] [place] [address] Automated monocyte %Ordered By: Obaydah Daromar on 02-06-2023 Monocytes/100 WBC (Bld) 10.1 % Normal . [facility] Comment on above: Order Comment: for m uscle spasms, I let the charge @rn, she is going to let rn lila know,pls. Performed By: #### L ACTIC, HS TROP #### [facility] [address] [place] [address] Automated neutrophil %Ordere d By: Obaydah Daromar on 02-06-2023 Neutrophils/100 WBC (Bld) 31.0 % Normal . [facility] Comment on above: Order Comment: for m uscle spasms, I let the charge @rn, she is going to let rn lila know,pls. Performed By: #### L ACTIC, HS TROP #### [facility] [address] Basic Metabolic Panelon 01-26 Creatinine Clr Calc Pharmacy 87.[address] [facility] Comment on above: Order Comment: for wendy uscle spasms, I let the charge @rn, she is going to let hany huitronpls. Result Comment: PERF ORMED BY: [place] [address] PATHOLOGIST NAMED ACCOUNT EXECUTIVE RENETTA MONACO M.D. Performed By: #### L ACTIC, HS TROP #### [address] GFR/1.73 sq M.predicted MDRD (S/P/Bld) [Vol rate/Area] mL/min/{1.73_m2} Normal [facility] Comment on above: Order Comment: for wendy uscle spasms, I let the charge @rn, she is going to let hany huitronpls. Performed By: #### L ACTIC, HS TROP #### [address] Calcium [Mass/volume] in Ser um or PlasmaOrdered By: Ray Betancourt on 02-06-2023 Calcium [Mass/Vol] 8.8 mg/dL Normal 8.6-10.3 [facility] Comment on above: Order Comment: for m uscle spasms, I let the charge @rn, she is going to let hany huitronpls. Performed By: #### L ACTIC, HS TROP #### [facility] [address] [place] [address] [place] Carbon dioxide, total [Moles /volume] in Serum or PlasmaOrdered By: Ray Floresomar on 02-06-2023 CO2 [Moles/Vol] 24.9 mmol/L Normal 21.0-31.0 [facility] Comment on above: Order Comment: for m uscle spasms, I let the charge @rn, she is going to let hany huitronpls. Performed By: #### L ACTIC, HS TROP #### [facility] [address] Chloride [Moles/volume] in S jennifer or PlasmaOrdered By: Ray Floresomamary ann on 02-06-2023 Chloride [Moles/Vol] 105 mmol/L Normal 98-107 [facility] Comment on above: Order Comment: for m uscle spasms, I let the charge @rn, she is going to let hany huitron pls. Performed By: #### L ACTIC, HS TROP #### [facility] [address] Creatinine [Mass/volume] in Serum or PlasmaOrdered By: Ray Floresomar on 02-06-2023 Creatinine [Mass/Vol] 0.84 mg/dL Normal 0.70-1.30 [facility] Comment on above: Order Comment: for m uscle spasms, I let the charge @rn, she is going to let hany huitron pls. Performed By: #### L ACTIC, HS TROP #### [address] Erythrocyte distribution wid th [Ratio] by Automated countOrdered By: Ray Betancourt on 02-06-2023 Erythrocyte distribution width (RBC) [Ratio] 14.8 % Normal 12.0-14.8 [facility] Comment on above: Order Comment: for m uscle spasms, I let the charge @rn, she is going to let hany huitron pls. Performed By: #### L ACTIC, HS TROP #### [facility] [address] [place] [id number] [place] Erythrocytes [#/volume] in B lood by Automated countOrdered By: Ray Betancourt on 02-06-2023 RBC (Bld) [#/Vol] 4.42 10*6/uL Normal 3.90-5.60 [facility] Comment on above: Order Comment: for m uscle spasms, I let the charge @rn, she is going to let hany huitronpls. Performed By: #### L ACTIC, HS TROP #### [facility] [address] [place] [id number] [place] Glucose [Mass/volume] in Ser um or PlasmaOrdered By: Ray Betancourt on 02-06-2023 Glucose [Mass/Vol] 125 mg/dL High 70-100 [facility] Comment on above: ADA recommended refe rence rangeRandom Glucose Reference Range is dependent on time and content of last meal. Glucose of more than 200 mg/dL in a nonstressed, ambulatory subject supports the diagnosis of Diabetes Mellitus. Order Comment: for wendy nelson spasms, I let the charge @rn, she is going to let hany huitronpls. Result Comment: [place] om Glucose Reference Range is dependent on time and content of last meal. Glucose of more than 200 mg/dL in a nonstressed, ambulatory subject supports the diagnosis of Diabetes Mellitus. ADA recommended reference range Performed By: #### L ACTIC, HS TROP #### [facility] [address] [place] [id number] [place] Hematocrit [Volume Fraction] of Blood by Automated countOrdered By: Ray Betancourt on 02-06-2023 Hematocrit (Bld) [Volume fraction] 37.0 % Low 38.8-50.0 [facility] Comment on above: Order Comment: for wendy nelson spasms, I let the charge @rn, she is going to let hany huitronpls. Performed By: #### L ACTIC, HS TROP #### [facility] [address] [place] [id number] [place] Hemoglobin [Mass/volume] in BloodOrdered By: Ray Betancourt on 02-06-2023 Hemoglobin (Bld) [Mass/Vol] 12.1 g/dL Low 13.0-17.0 [facility] Comment on above: Order Comment: for wendy nelson spasms, I let the charge @rn, she is going to let hany huitronpls. Performed By: #### L ACTIC, HS TROP #### [facility] [address] [place] [id number] [place] Leukocytes [#/volume] correc mayte for nucleated erythrocytes in Blood by Automated counOrdered By: Ray Gainesr on 02-06-2023 WBC corrected for nucl RBC Auto (Bld) [#/Vol] 2.7 10*3/uL 4.1-10.5 [facility] Leukocytes [#/volume] in Blo od by Automated countOrdered By: Obbrandondah Daromar on 02-06-2023 WBC (Bld) [#/Vol] 2.7 10*3/uL Low 4.1-10.5 [facility] Comment on above: Order Comment: for m uscle spasms, I let the charge @rn, she is going to let rn lila huitron,pls. Performed By: #### L ACTIC, HS TROP #### [facility] [address] [place] [address] [place] Lymphocytes [#/volume] in Bl ood by Automated countOrdered By: Obbrandondachris Daromar on 02-06-2023 Lymphocytes (Bld) [#/Vol] 1.4 10*3/uL Normal 1.00-4.8 [facility] Comment on above: Order Comment: for m uscle spasms, I let the charge @rn, she is going to let rn lila huitron,pls. Performed By: #### L ACTIC, HS TROP #### [facility] [address] [place] [address] [place] Lymphocytes/100 leukocytes i n Blood by Automated countOrdered By: Tiannadachris Floresomar on 02-06-2023 Lymphocytes/100 WBC (Bld) 51.3 % Normal . [facility] Comment on above: Order Comment: for m uscle spasms, I let the charge @rn, she is going to let rn lila huitron,pls. Performed By: #### L ACTIC, HS TROP #### [facility] [address] [place], [place] [id number] [place] MCH [Entitic mass] by Automa mayte countOrdered By: Obbrandondah Daromar on 02-06-2023 MCH (RBC) [Entitic mass] 27.4 pg Low 27.5-35.2 [facility] Comment on above: Order Comment: for m uscle spasms, I let the charge @rn, she is going to let hany huitronpls. Performed By: #### L ACTIC, HS TROP #### [facility] [address] MCHC Auto (RBC) [Mass/Vol]Or dered By: Ray Floresomar on 02-06-2023 MCHC (RBC) [Mass/Vol] 32.8 g/dL 32.5-35.6 [facility] MCV [Entitic volume] by Auto mated countOrdered By: Ray Gainesr on 02-06-2023 MCV (RBC) [Entitic vol] 83.5 fL Normal 83.5-101 F [facility] Comment on above: Order Comment: for wendy nelson spasms, I let the charge @rn, she is going to let hany huitronpls. Performed By: #### L ACTIC, HS TROP #### [facility] [address] [place] [address] Neutrophils [#/volume] in Bl ood by Automated countOrdered By: Ray Betancourt on 02-06-2023 Neutrophils (Bld) [#/Vol] 0.8 10*3/uL Low 1.8-7.7 [facility] Comment on above: Order Comment: for wendy nelson spasms, I let the charge @rn, she is going to let hany huitronpls. Performed By: #### L ACTIC, HS TROP #### [facility] [address] [place] [address] No Panel InformationOrdered By: Ray Betancourt on 02-06-2023 Estimated GFR (CKD-EPI) > 60.0 mL/Min [facility] Creatinine Clearance (Chem 87.63 [facility] Nucleated erythrocytes [Pres ence] in Blood by Automated countOrdered By: Ray Betancourt on 02-06-2023 Nucleated RBC Auto Ql (Bld) 0.3 /100{WBC} 0-0.5 [facility] Platelet adequacy [Presence] in Blood by Light microscopyOrdered By: Ray Betancourt on 02-06-2023 Platelets LM Ql (Bld) Normal Normal [facility] Platelet mean volume [Entiti c volume] in Blood by Automated countOrdered By: Tiannadachris Floresomar on 02-06-2023 Platelet mean volume (Bld) [Entitic vol] 7.2 fL Normal 6.6-10.1 [facility] Comment on above: Order Comment: for m uscle spasms, I let the charge @rn, she is going to let hany huitron,pls. Performed By: #### L ACTIC, HS TROP #### [facility] [address] Platelet morphology finding [Identifier] in BloodOrdered By: Ray Floresomar on 02-06-2023 Platelet morphology finding Nom (Bld) Normal Normal [facility] Platelets [#/volume] in Bloo d by Automated countOrdered By: Ray Floresomar on 02-06-2023 Platelets (Bld) [#/Vol] 277 10*3/uL Normal 150-450 [facility] Comment on above: Order Comment: for m uscle spasms, I let the charge @rn, she is going to let rn lila huitron,pls. Performed By: #### L ACTIC, HS TROP #### [facility] [address] [place] [address] [place] Potassium [Moles/volume] in Serum or PlasmaOrdered By: Ray Floresomar on 02-06-2023 Potassium [Moles/Vol] 4.3 mmol/L Normal 3.5-5.1 [facility] Comment on above: Order Comment: for m uscle spasms, I let the charge @rn, she is going to let rn lila huitron,pls. Performed By: #### L ACTIC, HS TROP #### [facility] [address] [place] [address] [place] RBC morphologyOrdered By: Ob brandondachris Floresomar on 02-06-2023 RBC morphology finding Nom (Bld) Normal Normal Normal [facility] Comment on above: Order Comment: for m uscle spasms, I let the charge @rn, she is going to let hany huitron,pls. Performed By: #### L ACTIC, HS TROP #### [address] Scan and CBCon 02-06-2023 Mean Corpuscular HGB Conc 32.8 g/dL Normal 32.5-35.[address] [facility] Comment on above: Order Comment: for wendy uscle spasms, I let the charge @rn, she is going to let hany huitron,pls. Performed By: #### L ACTIC, HS TROP #### [address] NRBC% 0.3 /100{WBC} Normal 0-0.5 [facility] Comment on above: Order Comment: for wendy uscle spasms, I let the charge @rn, she is going to let hany huitron,pls. Performed By: #### L ACTIC, HS TROP #### [address] Platelet Estimate Normal Normal Normal [facility] Comment on above: Order Comment: for wendy uscle spasms, I let the charge @rn, she is going to let hany huitron,pls. Performed By: #### L ACTIC, HS TROP #### [address] Platelet Morphology Normal Normal Normal [facility] Comment on above: Order Comment: for wendy uscle spasms, I let the charge @rn, she is going to let hany huitron,pls. Result Comment: PERF ORMED BY: [place] [id number] PATHOLOGIST NAMED ACCOUNT EXECUTIVE RENETTA MONACO M.D. Performed By: #### L ACTIC, HS TROP #### [address] Serum or plasma anion gap de terminationOrdered By: Ray Betancourt on 02-06-2023 Anion gap [Moles/Vol] 8.4 mmol/L Normal 6.0-15.0 [facility] Comment on above: Order Comment: for m uscle spasms, I let the charge @rn, she is going to let rn lila huitronpls. Performed By: #### L ACTIC, HS TROP #### [facility] [address] [place] [address] [place] Sodium [Moles/volume] in Ser um or PlasmaOrdered By: Obaydah Daromar on 02-06-2023 Sodium [Moles/Vol] 134 mmol/L Low 136-145 [facility] Comment on above: Order Comment: for wendy uscle spasms, I let the charge @rn, she is going to let rn lila huitronpls. Performed By: #### L ACTIC, HS TROP #### [facility] [address] [place] [address] [place] Urea nitrogen [Mass/volume] in Serum or PlasmaOrdered By: Obaydah Daromar on 02-06-2023 Urea nitrogen [Mass/Vol] 11 mg/dL Normal 7-25 [facility] Comment on above: Order Comment: for wendy uscle spasms, I let the charge @rn, she is going to let rn lila huitronpls. Performed By: #### L ACTIC, HS TROP #### [facility] [address] [place] [address] [place] Alanine aminotransferase [En zymatic activity/volume] in Serum or PlasmaOrdered By: Obbrandondah Daromar on 02-05-2023 ALT [Catalytic activity/Vol] 5 U/L Low 7-52 [facility] Comment on above: Performed By: #### B MP, CBC #### [facility] [address] [place] [address] [place] Albumin [Mass/volume] in Ser um or Plasma by Bromocresol green (BCG) dye binding methoOrdered By: Obaydah Daromar on 02-05-2023 Albumin BCG dye [Mass/Vol] 3.7 g/dL 3.5-5.7 [facility] Alkaline phosphatase [Enzyma tic activity/volume] in Serum or PlasmaOrdered By: Obaydah Daromar on 02-05-2023 ALP [Catalytic activity/Vol] 43 U/L Normal 34-104 [facility] Comment on above: Performed By: #### B MP, CBC #### [address] Aspartate aminotransferase [ Enzymatic activity/volume] in Serum or PlasmaOrdered By: Obaydah Daromar on 02-05-2023 AST [Catalytic activity/Vol] 10 U/L Low 13-39 [facility] Comment on above: Performed By: #### B MP, CBC #### [address] Bilirubin.total [Mass/volume ] in Serum or PlasmaOrdered By: Obaydah Daromar on 02-05-2023 Bilirubin [Mass/Vol] 0.4 mg/dL Normal 0.3-1.0 [facility] Comment on above: Performed By: #### B MP, CBC #### [address] Complete Blood Count Auto Di ffon 02-05-2023 Basophils (Bld) [#/Vol] 0.0 10*3/uL Normal 0.0-0.[address] [facility] Comment on above: Result Comment: PERF ORMED BY: [place] [id number] PATHOLOGIST NAMED ACCOUNT EXECUTIVE RENETTA MONACO M.D. Performed By: #### B MP, CBC #### [address] Basophils/100 WBC (Bld) 1.0 % Normal . [facility] Comment on above: Performed By: #### B MP, CBC #### [place] [address] [place] Eosinophils (Bld) [#/Vol] 0.2 10*3/uL Normal 0.0-0.[address] [facility] Comment on above: Performed By: #### B MP, CBC #### [place] [address] [place] Eosinophils/100 WBC (Bld) 7.1 % Normal . [facility] Comment on above: Performed By: #### B MP, CBC #### [address] Erythrocyte distribution width (RBC) [Ratio] 14.8 % Normal 12.0-14.[address] [facility] Comment on above: Performed By: #### B MP, CBC #### [address] Hematocrit (Bld) [Volume fraction] 35.5 % Low 38.8-50.[address] [facility] Comment on above: Performed By: #### B MP, CBC #### [address] Hemoglobin (Bld) [Mass/Vol] 11.7 g/dL Low 13.0-17.[address] [facility] Comment on above: Performed By: #### B MP, CBC #### [address] Lymphocytes (Bld) [#/Vol] 1.4 10*3/uL Normal 1.00-4.[address] [facility] Comment on above: Performed By: #### B MP, CBC #### [address] Lymphocytes/100 WBC (Bld) 44.0 % Normal . [facility] Comment on above: Performed By: #### B MP, CBC #### [address] MCH (RBC) [Entitic mass] 27.5 pg Normal 27.5-35.[address] [facility] Comment on above: Performed By: #### B MP, CBC #### [address] MCV (RBC) [Entitic vol] 83.0 fL Low 83.5-[address] [facility] Comment on above: Performed By: #### B MP, CBC #### [address] Mean Corpuscular HGB Conc 33.1 g/dL Normal 32.5-35.[address] [facility] Comment on above: Performed By: #### B MP, CBC #### [address] [address] [place] Monocytes (Bld) [#/Vol] 0.3 10*3/uL Normal 0.0-0.[address] [facility] Comment on above: Performed By: #### B MP, CBC #### [address] Monocytes/100 WBC (Bld) 8.1 % Normal . [facility] Comment on above: Performed By: #### B MP, CBC #### [address] Neutrophils (Bld) [#/Vol] 1.2 10*3/uL Low 1.8-7.[address] [facility] Comment on above: Performed By: #### B MP, CBC #### [address] Neutrophils/100 WBC (Bld) 39.8 % Normal . [facility] Comment on above: Performed By: #### B MP, CBC #### [address] NRBC% 0.1 /100{WBC} Normal 0-0.5 [facility] Comment on above: Performed By: #### B MP, CBC #### [address] Platelet mean volume (Bld) [Entitic vol] 7.5 fL Normal 6.6-10.1 [facility] Comment on above: Performed By: #### B MP, CBC #### [place] [address] [place] Platelets (Bld) [#/Vol] 318 10*3/uL Normal 150-[address] [facility] Comment on above: Performed By: #### B MP, CBC #### [place] [address] [place] RBC (Bld) [#/Vol] 4.27 10*6/uL Normal 3.90-5.60 [facility] Comment on above: Performed By: #### B MP, CBC #### [place] [id number] [place] WBC (Bld) [#/Vol] 3.1 10*3/uL Low 4.1-10.5 [facility] Comment on above: Performed By: #### B MP, CBC #### [address] Comprehensive Metabolic Pane kimberly 02-05-2023 Albumin [Mass/Vol] 3.7 g/dL Normal 3.5-5.7 [facility] Comment on above: Performed By: #### B MP, CBC #### [address] Anion gap [Moles/Vol] 8.1 mmol/L Normal 6.0-15.[address] [facility] Comment on above: Performed By: #### B MP, CBC #### [address] Calcium [Mass/Vol] 8.9 mg/dL Normal 8.6-10.3 [facility] Comment on above: Performed By: #### B MP, CBC #### [address] Chloride [Moles/Vol] 106 mmol/L Normal 98-[address] [facility] Comment on above: Performed By: #### B MP, CBC #### [address] CO2 [Moles/Vol] 27.0 mmol/L Normal 21.0-31.0 [facility] Comment on above: Performed By: #### B MP, CBC #### [address] Creatinine [Mass/Vol] 0.78 mg/dL Normal 0.70-1.[address] [facility] Comment on above: Performed By: #### B MP, CBC #### [address] Creatinine Clr Calc Pharmacy 93.[address] [facility] Comment on above: Result Comment: PERF ORMED BY: [place] [address] PATHOLOGIST NAMED ACCOUNT EXECUTIVE RENETTA MONACO M.D. Performed By: #### B MP, CBC #### [facility] [address] [place] [address] [place] GFR/1.73 sq M.predicted MDRD (S/P/Bld) [Vol rate/Area] mL/min/{1.73_m2} Normal [facility] Comment on above: Performed By: #### B MP, CBC #### [address] Glucose [Mass/Vol] 98 mg/dL Normal 70-100 [facility] Comment on above: Result Comment: [facility] [place][note 2] Glucose Reference Range is dependent on time and content of last meal. Glucose of more than 200 mg/dL in a nonstressed, ambulatory subject supports the diagnosis of Diabetes Mellitus. ADA recommended reference range Performed By: #### B MP, CBC #### [address] Potassium [Moles/Vol] 4.1 mmol/L Normal 3.5-5.[address] [facility] Comment on above: Performed By: #### B MP, CBC #### [address] Sodium [Moles/Vol] 137 mmol/L Normal 136-145 [facility] Comment on above: Performed By: #### B MP, CBC #### [address] Urea nitrogen [Mass/Vol] 9 mg/dL Normal 7-[address] [facility] Comment on above: Performed By: #### B MP, CBC #### [place] [address] [place] Protein [Mass/volume] in Ser um or PlasmaOrdered By: Ray Betancourt on 02-05-2023 Protein [Mass/Vol] 6.3 g/dL Low 6.4-8.9 [facility] Comment on above: Performed By: #### B MP, CBC #### [address] Serum globulin measurement b y calculation (mass/volume)Ordered By: Obsal Betancourt on 02-05-2023 Globulin (S) [Mass/Vol] 2.6 g/dL Normal F [facility] Comment on above: Performed By: #### B MP, CBC #### [address] Serum or plasma albumin/glob ulin mass ratioOrdered By: Obbrandondachris Daromar on 02-05-2023 Albumin/Globulin [Mass ratio] 1.4 {ratio} Normal [facility] Comment on above: Performed By: #### B MP, CBC #### [address] Automated basophil %Ordered By: Christin Manzanares on 02-03-2023 Basophils/100 WBC (Bld) 0.6 % Normal . [facility] Comment on above: Performed By: #### C BC, BMP #### [address] Automated basophil countOrde red By: Christin Manzanares on 02-03-2023 Basophils (Bld) [#/Vol] 0.0 10*3/uL Normal 0.0-0.2 [facility] Comment on above: Result Comment: PERF ORMED BY: [place] [id number] PATHOLOGIST NAMED ACCOUNT EXECUTIVE RENETTA MONACO M.D. Performed By: #### C BC, BMP #### [address] Automated blood monocyte cou ntOrdered By: Christin Manzanares on 02-03-2023 Monocytes (Bld) [#/Vol] 0.5 10*3/uL Normal 0.0-0.8 [facility] Comment on above: Performed By: #### C BC, BMP #### [address] Automated eosinophil %Ordere d By: Christin Manzanares on 02-03-2023 Eosinophils/100 WBC (Bld) 4.0 % Normal . [facility] Comment on above: Performed By: #### C BC, BMP #### [facility] [address] Automated eosinophil countOr dered By: Christin Manzanares on 02-03-2023 Eosinophils (Bld) [#/Vol] 0.2 10*3/uL Normal 0.0-0.45 [facility] Comment on above: Performed By: #### C BC, BMP #### [address] Automated epithelial cells c ount in urine sediment (number/area)Ordered By: Christin Manzanares on 02-03-2023 Epithelial cells Auto (Urine sed) [#/Area] 0-1 [HPF] 0-2 [facility] Automated erythrocytes count in urine sediment (number/area)Ordered By: Christin Manzanares on 02-03-2023 RBC Auto (Urine sed) [#/Area] 5-9 [HPF] 0-4 [facility] Automated leukocytes count i n urine sediment (number/area)Ordered By: Christin Manzanares on 02-03-2023 WBC Auto (Urine sed) [#/Area] 20-49 [HPF] 0-4 [facility] Automated monocyte %Ordered By: Christin Manzanares on 02-03-2023 Monocytes/100 WBC (Bld) 8.1 % Normal . [facility] Comment on above: Performed By: #### C BC, BMP #### [address] Automated neutrophil %Ordere d By: Christin Manzanares on 02-03-2023 Neutrophils/100 WBC (Bld) 58.6 % Normal . [facility] Comment on above: Performed By: #### C BC, BMP #### [address] Automated urine color determ inationOrdered By: Christin Manzanares on 02-03-2023 Color (U) Yellow Normal Yellow [facility] Comment on above: Order Comment: Name Collection Type:: Hernandez Catheter Performed By: #### C UU, ADDONUAPLUS #### [address] Automated urine hyaline cast s count (number/volume)Ordered By: Christin Manzanares on 02-03-2023 Hyaline casts Auto (U) [#/Vol] None seen [LPF] 0-1 [facility] Automated urine sediment alice cium oxalate crystal count by microscopy (number/high powOrdered By: Christin Manzanares on 02-03-2023 Calcium oxalate crystals LM.HPF (Urine sed) [#/Area] Rare [HPF] [facility] Basic Metabolic Panelon Creatinine Clr Calc Pharmacy 95.[address] [facility] Comment on above: Result Comment: PERF ORMED BY: [place] [address] PATHOLOGIST NAMED ACCOUNT EXECUTIVE RENETTA MONACO M.D. Performed By: #### C BC, BMP #### [facility] [address] [place] [address] GFR/1.73 sq M.predicted MDRD (S/P/Bld) [Vol rate/Area] mL/min/{1.73_m2} Normal [facility] Comment on above: Performed By: #### C BC, BMP #### [facility] [address] [place] [address] Bilirubin Test strip Ql (U)O rdered By: Christin Manzanares on 02-03-2023 Bilirubin Ql (U) Negative Negative [facility] CNOVon 02-03-2023 CNOV Normal [facility] CT abdomen pelvis wo conon 1 04-05-2022 CT abdomen pelvis wo con [facility] [place] [address] [place] [address] CT Scan Report Signed Patient: Fede Guerra MR#: [id number] : 1955 Acct:[id number] Age/Sex: 67 / M ADM Date: 02/03/23 Loc: ER Room: Type: [facility] ER Attending Dr: Copies to: Christin [...] Christie Durán M.D.02/03/2023 8:36 PM Dictation Location: [place] [address] Transcribed By: [facility] 02/03/232035 Dictated By: Christie Durán MD 02/03/232026 Signed By: 02/03/23[address] [facility] Calcium [Mass/volume] in Ser um or PlasmaOrdered By: Christin Manzanares on 02-03-2023 Calcium [Mass/Vol] 9.0 mg/dL Normal 8.6-10.3 [facility] Comment on above: Performed By: #### C BC, BMP #### [address] Carbon dioxide, total [Moles /volume] in Serum or PlasmaOrdered By: Christinsasha Manzanares on 02-03-2023 CO2 [Moles/Vol] 25.3 mmol/L Normal 21.0-31.0 [facility] Comment on above: Performed By: #### C BC, BMP #### [address] Chloride [Moles/volume] in S jennifer or PlasmaOrdered By: Christin Manzanares on 02-03-2023 Chloride [Moles/Vol] 108 mmol/L High 98-107 [facility] Comment on above: Performed By: #### C BC, BMP #### [address] Complete Blood Count Auto Di ffon 02-03-2023 Mean Corpuscular HGB Conc 33.1 g/dL Normal 32.5-35.[address] [facility] Comment on above: Performed By: #### C BC, BMP #### [place] [address] [place] Monocytes/100 WBC (Bld) 19.15 % Normal 0.00-20.00 [facility] Comment on above: Performed By: #### C BC, BMP #### [place] [address] [place] NRBC% 0.1 /100{WBC} Normal 0-0.5 [facility] Comment on above: Performed By: #### C BC, BMP #### [address] Creatinine [Mass/volume] in Serum or PlasmaOrdered By: Christin Manzanares on 02-03-2023 Creatinine [Mass/Vol] 0.70 mg/dL Normal 0.70-1.30 [facility] Comment on above: Performed By: #### C BC, BMP #### [place] [address] [place] Dipstick and Microscopicon 1 04-05-2022 Appearance (U) Clear Normal Clear [facility] Comment on above: Order Comment: Name Collection Type:: Hernandez Catheter Performed By: #### C UU, ADDONUAPLUS #### [place] [address] [place] Bacteria,Urine 4+ High None Seen [facility] Comment on above: Order Comment: Name Collection Type:: Hernandez Catheter Performed By: #### C UU, ADDONUAPLUS #### [place] [address] [place] Bilirubin,Urine Negative Normal Negative [facility] Comment on above: Order Comment: Name Collection Type:: Hernandez Catheter Performed By: #### C UU, ADDONUAPLUS #### [address] Calcium Oxalate Crystals,Urine Rare Normal [facility] Comment on above: Order Comment: Name Collection Type:: Hernandez Catheter Performed By: #### C UU, ADDONUAPLUS #### [address] Glucose Ql (U) Normal Normal Normal [facility] Comment on above: Order Comment: Name Collection Type:: Hernandez Catheter Performed By: #### C UU, ADDONUAPLUS #### [place] [address] [place] Hyaline Casts,Urine None Seen Normal 0-1 [facility] Comment on above: Order Comment: Name Collection Type:: Hernandez Catheter Result Comment: PERF ORMED BY: [place] [address] PATHOLOGIST NAMED ACCOUNT EXECUTIVE RENETTA MONACO M.D. Performed By: #### C UU, ADDONUAPLUS #### [address] Ketones Ql (U) Negative Normal Negative [facility] Comment on above: Order Comment: Name Collection Type:: Hernandez Catheter Performed By: #### C UU, ADDONUAPLUS #### [address] Leukocyte esterase Test strip Ql (U) 4+ High Negative [facility] Comment on above: Order Comment: Name Collection Type:: Hernandez Catheter Performed By: #### C UU, ADDONUAPLUS #### [place] [address] [place] Nitrite,Urine Positive High Negative [facility] Comment on above: Order Comment: Name Collection Type:: Hernandez Catheter Performed By: #### C UU, ADDONUAPLUS #### [address] Occult Blood,Urine 1+ High Negative [facility] Comment on above: Order Comment: Name Collection Type:: Hernandez Catheter Result Comment: PERF ORMED BY: [place] [address] PATHOLOGIST NAMED ACCOUNT EXECUTIVE RENETTA MONACO M.D. Performed By: #### C UU, ADDONUAPLUS #### [place] [address] [place] Protein,Urine Negative Normal Negative [facility] Comment on above: Order Comment: Name Collection Type:: Hernandez Catheter Performed By: #### C UU, ADDONUAPLUS #### [address] RBC,Urine 5-9 High 0-[address] [facility] Comment on above: Order Comment: Name Collection Type:: Hernandez Catheter Performed By: #### C UU, ADDONUAPLUS #### [place] [address] [place] Specificy Merkel,Urine 1.005 Normal 1.001-1.[address] [facility] Comment on above: Order Comment: Name Collection Type:: Hernandez Catheter Performed By: #### C UU, ADDONUAPLUS #### [place] [address] [place] Squamous Epithelial Cell,Urine 0-1 Normal 0-[address] [facility] Comment on above: Order Comment: Name Collection Type:: Hernandez Catheter Performed By: #### C UU, ADDONUAPLUS #### [facility] [address] Urobilinogen,Urine Normal Normal Normal [facility] Comment on above: Order Comment: Name Collection Type:: Hernandez Catheter Performed By: #### C UU, ADDONUAPLUS #### [facility] [address] WBC,Urine 20-49 High 0-[address] [facility] Comment on above: Order Comment: Name Collection Type:: Hernandez Catheter Performed By: #### C UU, ADDONUAPLUS #### [facility] [address] [place] [address] ECG 12 lead ECGon 02-03-2023 ECG 12 lead ECG [facility] [place] [address] [place] [address] Electrocardiograph Report Signed Patient: Fdee Guerra MR#: [id number] : 1955 Acct:[id number] Age/Sex: 67 / M ADM Date: 02/03/23 Loc: ER Room: Type: [facility] ER Attending Dr: Ordering Provider: Christin [...] Sinus tachycardia Confirmed by Leighton OAKLEY DO ([id number]) on 02/03/2023 8:08:15 PM Referred By: Electronically Signed By:Leighton OAKLEY DO Transcribed By: MUS Signed By Leighton Oakley DO 04/05/[address] [facility] Erythrocyte distribution wid th [Ratio] by Automated countOrdered By: Christin Manzanares on 02-03-2023 Erythrocyte distribution width (RBC) [Ratio] 14.5 % Normal 12.0-14.8 [facility] Comment on above: Performed By: #### C BC, BMP #### [facility] [address] Erythrocytes [#/volume] in B lood by Automated countOrdered By: Christin Manzanares on 02-03-2023 RBC (Bld) [#/Vol] 4.40 10*6/uL Normal 3.90-5.60 [facility] Comment on above: Performed By: #### C PETEY, BMP #### [facility] [address] Glucose [Mass/volume] in Ser um or PlasmaOrdered By: Christin Manzanares on 02-03-2023 Glucose [Mass/Vol] 115 mg/dL High 70-100 [facility] Comment on above: ADA recommended refe rence rangeRandom Glucose Reference Range is dependent on time and content of last meal. Glucose of more than 200 mg/dL in a nonstressed, ambulatory subject supports the diagnosis of Diabetes Mellitus. Result Comment: [place] om Glucose Reference Range is dependent on time and content of last meal. Glucose of more than 200 mg/dL in a nonstressed, ambulatory subject supports the diagnosis of Diabetes Mellitus. ADA recommended reference range Performed By: #### C PETEY, BMP #### [address] Hematocrit [Volume Fraction] of Blood by Automated countOrdered By: Christin Manzanares on 02-03-2023 Hematocrit (Bld) [Volume fraction] 36.4 % Low 38.8-50.0 [facility] Comment on above: Performed By: #### C PETEY, BMP #### [address] Hemoglobin [Mass/volume] in BloodOrdered By: Christin Manzanares on 02-03-2023 Hemoglobin (Bld) [Mass/Vol] 12.0 g/dL Low 13.0-17.0 [facility] Comment on above: Performed By: #### C BC, BMP #### [address] Ketones Auto test strip (U) [Mass/Vol]Ordered By: Christin Manzanares on 02-03-2023 Ketones (U) [Mass/Vol] Negative Negative [facility] Lactate [Moles/volume] in Se rum or PlasmaOrdered By: Christin Manzanares on 02-03-2023 Lactate [Moles/Vol] 0.8 mmol/L Normal 0.5-2.2 [facility] Comment on above: Result Comment: PERF ORMED BY: [place] [id number] PATHOLOGIST NAMED ACCOUNT EXECUTIVE RENETTA MONACO M.D. Performed By: #### B MP, CBC #### [place] [address] [place] Leukocytes [#/volume] correc mayte for nucleated erythrocytes in Blood by Automated counOrdered By: Christin Manzanares on 02-03-2023 WBC corrected for nucl RBC Auto (Bld) [#/Vol] 6.1 10*3/uL 4.1-10.5 [facility] Leukocytes [#/volume] in Blo od by Automated countOrdered By: Christin Manzanares on 02-03-2023 WBC (Bld) [#/Vol] 6.1 10*3/uL Normal 4.1-10.5 [facility] Comment on above: Performed By: #### C BC, BMP #### [place] [address] [place] Lymphocytes [#/volume] in Bl ood by Automated countOrdered By: Christin Manzanares on 02-03-2023 Lymphocytes (Bld) [#/Vol] 1.8 10*3/uL Normal 1.00-4.8 [facility] Comment on above: Performed By: #### C BC, BMP #### [place] [address] [place] Lymphocytes/100 leukocytes i n Blood by Automated countOrdered By: Christinsasha Manzanares on 02-03-2023 Lymphocytes/100 WBC (Bld) 28.7 % Normal . [facility] Comment on above: Performed By: #### C BC, BMP #### [place] [address] [place] MCH [Entitic mass] by Automa mayte countOrdered By: Christin Manzanares on 02-03-2023 MCH (RBC) [Entitic mass] 27.4 pg Low 27.5-35.2 [facility] Comment on above: Performed By: #### C PETEY, JOSE #### [facility] [address] [place] [address] MCHC Auto (RBC) [Mass/Vol]Or dered By: Christin Manzanares on 02-03-2023 MCHC (RBC) [Mass/Vol] 33.1 g/dL 32.5-35.6 [facility] MCV [Entitic volume] by Auto mated countOrdered By: Christin Manzanares on 02-03-2023 MCV (RBC) [Entitic vol] 82.8 fL Low 83.5-101 F [facility] Comment on above: Performed By: #### C PETEY, BMP #### [facility] [address] [place] [address] Monocyte distribution width [Entitic volume] in Blood by AutomatedOrdered By: Christin Manzanares on 02-03-2023 Monocyte distribution width Auto (Bld) [Entitic vol] 19.15 % 0.00-20.00 [facility] Neutrophils [#/volume] in Bl ood by Automated countOrdered By: Christin Manzanares on 02-03-2023 Neutrophils (Bld) [#/Vol] 3.6 10*3/uL Normal 1.8-7.7 [facility] Comment on above: Performed By: #### C PETEY, BMP #### [facility] [address] [place] [address] Nitrite Test strip Ql (U)Ord ered By: Christin Manzanares on 02-03-2023 Nitrite Ql (U) Positive Negative [facility] No Panel InformationOrdered By: Christin Manzanares on 02-03-2023 Estimated GFR (CKD-EPI) > 60.0 mL/Min [facility] Creatinine Clearance (Chem 95.43 [facility] Nucleated erythrocytes [Pres ence] in Blood by Automated countOrdered By: Christin Manzanares on 02-03-2023 Nucleated RBC Auto Ql (Bld) 0.1 /100{WBC} 0-0.5 [facility] Platelet mean volume [Entiti c volume] in Blood by Automated countOrdered By: Christin Manzanares on 02-03-2023 Platelet mean volume (Bld) [Entitic vol] 7.1 fL Normal 6.6-10.1 [facility] Comment on above: Performed By: #### C BC, BMP #### [facility] [address] Platelets [#/volume] in Bloo d by Automated countOrdered By: Christin Manzanares on 02-03-2023 Platelets (Bld) [#/Vol] 307 10*3/uL Normal 150-450 [facility] Comment on above: Performed By: #### C BC, BMP #### [address] Potassium [Moles/volume] in Serum or PlasmaOrdered By: Christin Manzanares on 02-03-2023 Potassium [Moles/Vol] 4.0 mmol/L Normal 3.5-5.1 [facility] Comment on above: Performed By: #### C BC, BMP #### [address] Protein Auto test strip (U) [Mass/Vol]Ordered By: Christin Manzanares on 02-03-2023 Protein (U) [Mass/Vol] Negative Negative [facility] Serum or plasma anion gap de terminationOrdered By: Christin Manzanares on 02-03-2023 Anion gap [Moles/Vol] 8.7 mmol/L Normal 6.0-15.0 [facility] Comment on above: Performed By: #### C BC, BMP #### [place] [id number] [place] Sodium [Moles/volume] in Ser um or PlasmaOrdered By: Christin Manzanares on 02-03-2023 Sodium [Moles/Vol] 138 mmol/L Normal 136-145 [facility] Comment on above: Performed By: #### C BC, BMP #### [place] [address] [place] Specific gravity Auto test s trip (U) [Rel density]Ordered By: Christin Manzanares on 02-03-2023 Specific gravity (U) [Rel density] 1.005 1.001-1.030 [facility] Urea nitrogen [Mass/volume] in Serum or PlasmaOrdered By: Christin Manzanares on 02-03-2023 Urea nitrogen [Mass/Vol] 11 mg/dL Normal 7-25 [facility] Comment on above: Performed By: #### C , BMP #### [address] Urine Cultureon 02-03-2023 Bacteria identified Cx Nom (U) ORGANISM: Klebsiella pneumoniae (ESBL) (O:KLEPNEESBL) [place] Count >100,000 Aerobic SCOTT Charge (NMIC56) ----- [...] TO ALL B-LACTAM DRUGS. PERFORMED BY: [facility] [address] [place] [phone] PATHOLOGIST NAMED ACCOUNT EXECUTIVE RENETTA MONACO M.D. Normal [facility] Comment on above: Performed By: #### C EDILSON ROBLEDOPLUS #### [facility] [address] [place] [address] Urine bacteria detection by automated methodOrdered By: Christin Manzanares on 02-03-2023 Bacteria Auto Ql (U) 4+ None Seen [facility] Urine clarity by refractomet ry automatedOrdered By: Christin Manzanares on 02-03-2023 Clarity Refractometry automated (U) Clear Clear [facility] Urine culture routineOrdered By: Christin Manzanares on 02-03-2023 Bacteria identified Cx Nom (U) Klebsiella pneumoniae (ESBL) [facility] Urine glucose measurement by automated test strip (mass/volume)Ordered By: Christin Manzanares on 02-03-2023 Glucose Auto test strip (U) [Mass/Vol] Normal mg/dL Normal [facility] Urine hemoglobin detection b y automated test stripOrdered By: Christin Manzanares on 02-03-2023 Hemoglobin Auto test strip Ql (U) 1+ Negative [facility] Urine leukocyte esterase det ection by automated test stripOrdered By: Christin Manzanares on 02-03-2023 Leukocyte esterase Auto test strip Ql (U) 4+ Negative [facility] Urine pH measurement by auto mated test stripOrdered By: Christin Manzanares on 02-03-2023 pH (U) 6.5 [pH] Normal 5.0-9.0 [facility] Comment on above: Order Comment: Name Collection Type:: Hernandez Catheter Performed By: #### C EDILSON ROBLEDOPLUS #### [facility] [address] [place] [address] Urobilinogen Auto test strip (U) [Mass/Vol]Ordered By: Christin Manzanares on 02-03-2023 Urobilinogen (U) [Mass/Vol] Normal mg/dL Normal [facility] Bacteria Ur Culton 3 Bacteria identified Cx Nom (U) Abnormal [facility] Comment on above: Performed By: #### 6 30-4 ####[facility] [id number] [place] [id number] [place] CNOVon 01-10-2023 CNOV Normal [facility] CNPNon 12-23-2022 CNPN Normal [facility] CNOVon 12-16-2022 CNOV Normal [facility] CNPTOUTREACHon 12-16-2022 CNPTOUTREACH Normal [facility] US KIDNEY/BLADDERon 12-17-19 US KIDNEY/BLADDER Normal [facility] XR ABDOMEN 3V KUB W/OBLIQUES on 12-16-2022 XR ABDOMEN 3V KUB W/OBLIQUES Normal [facility] Amorphous urine sedimentOrde red By: Jun Gaona on 12-07-2022 Amorphous sediment LM Ql (Urine sed) 3+ [LPF] [facility] Automated basophil %Ordered By: Jun Gaona on 12-07-2022 Basophils/100 WBC (Bld) 1.5 % Normal . [facility] Comment on above: Performed By: #### B MP, CBC #### [address] Automated basophil countOrde red By: Jun Gaona on 12-07-2022 Basophils (Bld) [#/Vol] 0.1 10*3/uL Normal 0.0-0.2 [facility] Comment on above: Result Comment: PERF ORMED BY: [place] [address] PATHOLOGIST NAMED ACCOUNT EXECUTIVE RENETTA MONACO M.D. Performed By: #### B MP, CBC #### [facility] [address] Automated blood monocyte cou ntOrdered By: Jun Gaona on 12-07-2022 Monocytes (Bld) [#/Vol] 0.3 10*3/uL Normal 0.0-0.8 [facility] Comment on above: Performed By: #### B MP, CBC #### [facility] [address] Automated eosinophil %Ordere d By: Jun Gaona on 12-07-2022 Eosinophils/100 WBC (Bld) 7.5 % Normal . [facility] Comment on above: Performed By: #### B MP, CBC #### [facility] [address] Automated eosinophil countOr dered By: Jun Gaona on 12-07-2022 Eosinophils (Bld) [#/Vol] 0.3 10*3/uL Normal 0.0-0.45 [facility] Comment on above: Performed By: #### B MP, CBC #### [facility] [address] Automated epithelial cells c ount in urine sediment (number/area)Ordered By: Jun Gaona on 12-07-2022 Epithelial cells Auto (Urine sed) [#/Area] 1-2 [HPF] 0-2 [facility] Automated erythrocytes count in urine sediment (number/area)Ordered By: Jun Gaona on 12-07-2022 RBC Auto (Urine sed) [#/Area] 3-4 [HPF] 0-4 [facility] Automated leukocytes count i n urine sediment (number/area)Ordered By: Jun Gaona on 12-07-2022 WBC Auto (Urine sed) [#/Area] Innumerable [HPF] 0-4 [facility] Automated monocyte %Ordered By: Jun Gaona on 12-07-2022 Monocytes/100 WBC (Bld) 6.9 % Normal . [facility] Comment on above: Performed By: #### B MP, CBC #### [facility] [address] Automated neutrophil %Ordere d By: Jun Gaona on 12-07-2022 Neutrophils/100 WBC (Bld) 46.8 % Normal . [facility] Comment on above: Performed By: #### B MP, CBC #### [address] Automated urine color determ inationOrdered By: Jun Gaona on 12-07-2022 Color (U) Yellow Normal Yellow [facility] Comment on above: Order Comment: Name Collection Type:: Suprapubic Collection Performed By: #### C BC, BMP #### [address] Automated urine hyaline cast s count (number/volume)Ordered By: Jun Gaona on 12-07-2022 Hyaline casts Auto (U) [#/Vol] None seen [LPF] 0-1 [facility] Automated urine sediment alice cium oxalate crystal count by microscopy (number/high powOrdered By: Jun Gaona on 12-07-2022 Calcium oxalate crystals LM.HPF (Urine sed) [#/Area] 1+ [HPF] [facility] Basic Metabolic Panelon 11-26 Creatinine Clr Calc Pharmacy 89.[address] [facility] Comment on above: Result Comment: PERF ORMED BY: [place] [address] PATHOLOGIST NAMED ACCOUNT EXECUTIVE RENETTA MONACO M.D. Performed By: #### B MP, CBC #### [address] GFR/1.73 sq M.predicted MDRD (S/P/Bld) [Vol rate/Area] mL/min/{1.73_m2} Normal [facility] Comment on above: Performed By: #### B MP, CBC #### [address] Bilirubin Test strip Ql (U)O rdered By: Jun Gaona on 12-07-2022 Bilirubin Ql (U) Negative Negative [facility] Calcium [Mass/volume] in Ser um or PlasmaOrdered By: Jun Gaona on 12-07-2022 Calcium [Mass/Vol] 9.2 mg/dL Normal 8.6-10.3 [facility] Comment on above: Performed By: #### B MP, CBC #### [address] Carbon dioxide, total [Moles /volume] in Serum or PlasmaOrdered By: Jun Gaona on 12-07-2022 CO2 [Moles/Vol] 27.6 mmol/L Normal 21.0-31.0 [facility] Comment on above: Performed By: #### B MP, CBC #### [address] Casts typing in urine sedime nt by light microscopyOrdered By: Jun Gaona on 12-07-2022 Casts LM Nom (Urine sed) None seen [LPF] None Seen [facility] Chloride [Moles/volume] in S jennifer or PlasmaOrdered By: Jun Gaona on 12-07-2022 Chloride [Moles/Vol] 108 mmol/L High 98-107 [facility] Comment on above: Performed By: #### B MP, CBC #### [address] Complete Blood Count Auto Di ffon 12-07-2022 Mean Corpuscular HGB Conc 32.8 g/dL Normal 32.5-35.[address] [facility] Comment on above: Performed By: #### B MP, CBC #### [place] [address] [place] Monocytes/100 WBC (Bld) 18.59 % Normal 0.00-20.00 [facility] Comment on above: Performed By: #### B MP, CBC #### [address] NRBC% 0.2 /100{WBC} Normal 0-0.5 [facility] Comment on above: Performed By: #### B MP, CBC #### [place] [address] [place] Creatinine [Mass/volume] in Serum or PlasmaOrdered By: Jun Gaona on 12-07-2022 Creatinine [Mass/Vol] 0.70 mg/dL Normal 0.70-1.30 [facility] Comment on above: Performed By: #### B MP, CBC #### [place] [address] [place] Dipstick and Microscopicon 0 12-07-2022 Amorphous Sediment,Urine 3+ Normal [facility] Comment on above: Order Comment: Name Collection Type:: Suprapubic Collection Performed By: #### C BC, BMP #### [address] [place] [address] [place] Appearance (U) Turbid Critically abnormal Clear [facility] Comment on above: Order Comment: Name Collection Type:: Suprapubic Collection Performed By: #### C BC, BMP #### [facility] [address] [place] [address] [place] Bacteria,Urine 3+ High None Seen [facility] Comment on above: Order Comment: Name Collection Type:: Suprapubic Collection Performed By: #### C BC, BMP #### [place] [id number] [place] Bilirubin,Urine Negative Normal Negative [facility] Comment on above: Order Comment: Name Collection Type:: Suprapubic Collection Performed By: #### C BC, BMP #### [place] [address] [place] Calcium Oxalate Crystals,Urine 1+ Normal [facility] Comment on above: Order Comment: Name Collection Type:: Suprapubic Collection Performed By: #### C BC, BMP #### [place] [id number] [place] Glucose Ql (U) Normal Normal Normal [facility] Comment on above: Order Comment: Name Collection Type:: Suprapubic Collection Performed By: #### C BC, BMP #### [place] [id number] [place] Hyaline Casts,Urine None Seen Normal 0-1 [facility] Comment on above: Order Comment: Name Collection Type:: Suprapubic Collection Performed By: #### C BC, BMP #### [place] [id number] [place] Ketones Ql (U) Negative Normal Negative [facility] Comment on above: Order Comment: Name Collection Type:: Suprapubic Collection Performed By: #### C BC, BMP #### [place] [id number] [place] Leukocyte esterase Test strip Ql (U) 4+ High Negative [facility] Comment on above: Order Comment: Name Collection Type:: Suprapubic Collection Performed By: #### C BC, BMP #### [place] [address] [place] Nitrite,Urine Positive High Negative [facility] Comment on above: Order Comment: Name Collection Type:: Suprapubic Collection Performed By: #### C BC, BMP #### [address] Occult Blood,Urine 2+ High Negative [facility] Comment on above: Order Comment: Name Collection Type:: Suprapubic Collection Result Comment: PERF ORMED BY: [place] [address] PATHOLOGIST NAMED ACCOUNT EXECUTIVE RENETTA MONACO M.D. Performed By: #### C BC, BMP #### [address] Other Casts,Urine None Seen Normal None Seen [facility] Comment on above: Order Comment: Name Collection Type:: Suprapubic Collection Result Comment: PERF ORMED BY: [place] [address] PATHOLOGIST NAMED ACCOUNT EXECUTIVE RENETTA MONACO M.D. Performed By: #### C BC, BMP #### [place] [address] [place] Protein,Urine Trace High Negative [facility] Comment on above: Order Comment: Name Collection Type:: Suprapubic Collection Performed By: #### C BC, BMP #### [place] [address] [place] RBC,Urine 3-4 Normal 0-[address] [facility] Comment on above: Order Comment: Name Collection Type:: Suprapubic Collection Performed By: #### C BC, BMP #### [place] [address] [place] Specificy Merkel,Urine 1.005 Normal 1.001-1.[address] [facility] Comment on above: Order Comment: Name Collection Type:: Suprapubic Collection Performed By: #### C BC, BMP #### [place] [address] [place] Squamous Epithelial Cell,Urine 1-2 Normal 0-[address] [facility] Comment on above: Order Comment: Name Collection Type:: Suprapubic Collection Performed By: #### C BC, BMP #### [address] Urobilinogen,Urine Normal Normal Normal [facility] Comment on above: Order Comment: Name Collection Type:: Suprapubic Collection Performed By: #### C BC, BMP #### [address] WBC,Urine Innumerable High 0-[address] [facility] Comment on above: Order Comment: Name Collection Type:: Suprapubic Collection Performed By: #### C BC, BMP #### [address] Erythrocyte distribution wid th [Ratio] by Automated countOrdered By: Jun Gaona on 12-07-2022 Erythrocyte distribution width (RBC) [Ratio] 14.8 % Normal 12.0-14.8 [facility] Comment on above: Performed By: #### B MP, CBC #### [address] Erythrocytes [#/volume] in B lood by Automated countOrdered By: Jun Gaona on 12-07-2022 RBC (Bld) [#/Vol] 4.46 10*6/uL Normal 3.90-5.60 [facility] Comment on above: Performed By: #### B MP, CBC #### [address] Glucose [Mass/volume] in Ser um or PlasmaOrdered By: Jun Gaona on 12-07-2022 Glucose [Mass/Vol] 79 mg/dL Normal 70-100 [facility] Comment on above: ADA recommended refe rence rangeRandom Glucose Reference Range is dependent on time and content of last meal. Glucose of more than 200 mg/dL in a nonstressed, ambulatory subject supports the diagnosis of Diabetes Mellitus. Result Comment: [place] om Glucose Reference Range is dependent on time and content of last meal. Glucose of more than 200 mg/dL in a nonstressed, ambulatory subject supports the diagnosis of Diabetes Mellitus. ADA recommended reference range Performed By: #### B MP, CBC #### [address] Hematocrit [Volume Fraction] of Blood by Automated countOrdered By: Jun Gaona on 12-07-2022 Hematocrit (Bld) [Volume fraction] 36.9 % Low 38.8-50.0 [facility] Comment on above: Performed By: #### B MP, CBC #### [address] Hemoglobin [Mass/volume] in BloodOrdered By: Jun Gaona on 12-07-2022 Hemoglobin (Bld) [Mass/Vol] 12.1 g/dL Low 13.0-17.0 [facility] Comment on above: Performed By: #### B MP, CBC #### [address] Ketones Auto test strip (U) [Mass/Vol]Ordered By: Jun Gaona on 12-07-2022 Ketones (U) [Mass/Vol] Negative Negative [facility] Leukocytes [#/volume] correc mayte for nucleated erythrocytes in Blood by Automated counOrdered By: Jun Gaona on 12-07-2022 WBC corrected for nucl RBC Auto (Bld) [#/Vol] 4.1 10*3/uL 4.1-10.5 [facility] Leukocytes [#/volume] in Blo od by Automated countOrdered By: Jun Gaona on 12-07-2022 WBC (Bld) [#/Vol] 4.1 10*3/uL Normal 4.1-10.5 [facility] Comment on above: Performed By: #### B MP, CBC #### [place] [address] [place] Lymphocytes [#/volume] in Bl ood by Automated countOrdered By: Jun Gaona on 12-07-2022 Lymphocytes (Bld) [#/Vol] 1.5 10*3/uL Normal 1.00-4.8 [facility] Comment on above: Performed By: #### B MP, CBC #### [address] Lymphocytes/100 leukocytes i n Blood by Automated countOrdered By: Jun Gaona on 12-07-2022 Lymphocytes/100 WBC (Bld) 37.3 % Normal . [facility] Comment on above: Performed By: #### B MP, CBC #### [place] [address] [place] MCH [Entitic mass] by Automa mayte countOrdered By: Jun Gaona on 12-07-2022 MCH (RBC) [Entitic mass] 27.1 pg Low 27.5-35.2 [facility] Comment on above: Performed By: #### B MP, CBC #### [address] MCHC Auto (RBC) [Mass/Vol]Or dered By: Jun Gaona on 12-07-2022 MCHC (RBC) [Mass/Vol] 32.8 g/dL 32.5-35.6 [facility] MCV [Entitic volume] by Auto mated countOrdered By: Jun Gaona on 12-07-2022 MCV (RBC) [Entitic vol] 82.8 fL Low 83.5-101 F [facility] Comment on above: Performed By: #### B MP, CBC #### [address] Monocyte distribution width [Entitic volume] in Blood by AutomatedOrdered By: Jun Gaona on 12-07-2022 Monocyte distribution width Auto (Bld) [Entitic vol] 18.59 % 0.00-20.00 [facility] Neutrophils [#/volume] in Bl ood by Automated countOrdered By: Jun Gaona on 12-07-2022 Neutrophils (Bld) [#/Vol] 1.9 10*3/uL Normal 1.8-7.7 [facility] Comment on above: Performed By: #### B MP, CBC #### [address] Nitrite Test strip Ql (U)Ord ered By: Jun Gaona on 12-07-2022 Nitrite Ql (U) Positive Negative [facility] No Panel InformationOrdered By: Jun Gaona on 12-07-2022 Estimated GFR (CKD-EPI) > 60.0 mL/Min [facility] Creatinine Clearance (Chem 89.68 [facility] Nucleated erythrocytes [Pres ence] in Blood by Automated countOrdered By: Jun Gaona on 12-07-2022 Nucleated RBC Auto Ql (Bld) 0.2 /100{WBC} 0-0.5 [facility] Platelet mean volume [Entiti c volume] in Blood by Automated countOrdered By: Jun Gaona on 12-07-2022 Platelet mean volume (Bld) [Entitic vol] 8.1 fL Normal 6.6-10.1 [facility] Comment on above: Performed By: #### B MP, CBC #### [facility] [address] [place] [address] [place] Platelets [#/volume] in Bloo d by Automated countOrdered By: Jun Gaona on 12-07-2022 Platelets (Bld) [#/Vol] 204 10*3/uL Normal 150-450 [facility] Comment on above: Performed By: #### B MP, CBC #### [facility] [address] [place] [address] [place] Potassium [Moles/volume] in Serum or PlasmaOrdered By: Jun Gaona on 12-07-2022 Potassium [Moles/Vol] 4.0 mmol/L Normal 3.5-5.1 [facility] Comment on above: Performed By: #### B MP, CBC #### [facility] [address] Protein Auto test strip (U) [Mass/Vol]Ordered By: Jun Gaona on 12-07-2022 Protein (U) [Mass/Vol] Trace mg/dL Negative [facility] Serum or plasma anion gap de terminationOrdered By: Jun Gaona on 12-07-2022 Anion gap [Moles/Vol] 8.4 mmol/L Normal 6.0-15.0 [facility] Comment on above: Performed By: #### B MP, CBC #### [facility] [address] [place] [address] [place] Sodium [Moles/volume] in Ser um or PlasmaOrdered By: Jun Gaona on 12-07-2022 Sodium [Moles/Vol] 140 mmol/L Normal 136-145 [facility] Comment on above: Performed By: #### B MP, CBC #### [facility] [address] Specific gravity Auto test s trip (U) [Rel density]Ordered By: Jun Gaona on 12-07-2022 Specific gravity (U) [Rel density] 1.005 1.001-1.030 [facility] Urea nitrogen [Mass/volume] in Serum or PlasmaOrdered By: Jun Gaona on 12-07-2022 Urea nitrogen [Mass/Vol] 14 mg/dL Normal 7-25 [facility] Comment on above: Performed By: #### B EVRNA, CBC #### [facility] [address] Urine Cultureon 12-07-2022 Bacteria identified Cx Nom (U) ORGANISM: Klebsiella pneumoniae (ESBL) (O:KLEPNEESBL) Minto Count >100,000 ORGANISM: Enterococcus faecalis (O:ENTFAC) Minto Count >100,000 Aerobic SCOTT Charge (NMIC56) ----- [...] RESISTANT TO ALL B-LACTAM DRUGS. PERFORMED BY: [place] [address] PATHOLOGIST NAMED ACCOUNT EXECUTIVE RENETTA MONACO M.D. Normal [facility] Comment on above: Performed By: #### C , BMP #### [address] Urine bacteria detection by automated methodOrdered By: Jun Gaona on 12-07-2022 Bacteria Auto Ql (U) 3+ None Seen [facility] Urine clarity by refractomet ry automatedOrdered By: Jun Gaona on 12-07-2022 Clarity Refractometry automated (U) Turbid Clear [facility] Urine culture routineOrdered By: Jun Gaona on 12-07-2022 Bacteria identified Cx Nom (U) Klebsiella pneumoniae (ESBL) [facility] Bacteria identified Cx Nom (U) Enterococcus faecalis [facility] Bacteria identified Cx Nom (U) Klebsiella pneumoniae (ESBL) [facility] Bacteria identified Cx Nom (U) Enterococcus faecalis [facility] Urine glucose measurement by automated test strip (mass/volume)Ordered By: Jun Gaona on 12-07-2022 Glucose Auto test strip (U) [Mass/Vol] Normal mg/dL Normal [facility] Urine hemoglobin detection b y automated test stripOrdered By: Jun Gaona on 12-07-2022 Hemoglobin Auto test strip Ql (U) 2+ Negative [facility] Urine leukocyte esterase det ection by automated test stripOrdered By: Jun Gaona on 12-07-2022 Leukocyte esterase Auto test strip Ql (U) 4+ Negative [facility] Urine pH measurement by auto mated test stripOrdered By: Jun Gaona on 12-07-2022 pH (U) 7.5 [pH] Normal 5.0-9.0 [facility] Comment on above: Order Comment: Name Collection Type:: Suprapubic Collection Performed By: #### C BC, BMP #### [address] Urobilinogen Auto test strip (U) [Mass/Vol]Ordered By: Jun Gaona on 12-07-2022 Urobilinogen (U) [Mass/Vol] Normal mg/dL Normal [facility] Bacteria Ur Culton 3 Bacteria identified Cx Nom (U) Abnormal [facility] Comment on above: Performed By: #### 6 30-4 ####[facility] [id number] [place] [address] [place] CNOVon 11-25-2022 CNOV Normal [facility] Urinalysis complete panel (U )on 11-25-2022 Bacteria LM.HPF (Urine sed) [#/Area] Moderate Abnormal None Seen [facility] Comment on above: Order Comment: Speci men Type: URINE SPECIMENOrdering Facility: [facility] Address: [address] [place], [place] [address] Performed By: #### 2 4356-8 ####[facility] [id number] [place] [address] [place] Bilirubin Ql (U) Negative Normal Negative [facility] Comment on above: Order Comment: Speci men Type: URINE SPECIMENOrdering Facility: [facility] Address: [address] [place] [address] Performed By: #### 2 4356-8 ####[facility] [id number] [place] [address] [place] CALCIUM OXALATE CRYSTALS (UA) Few Abnormal None Seen [facility] Comment on above: Order Comment: Speci men Type: URINE SPECIMENOrdering Facility: [facility] Address: [address] [place] [address] Performed By: #### 2 4356-8 ####[facility] [id number] [place] [address] [place] Clarity (Unsp spec) Cloudy Abnormal Clear [facility] Comment on above: Order Comment: Speci men Type: URINE SPECIMENOrdering Facility: [facility] Address: [address] Performed By: #### 2 4356-8 ####[facility] [id number] [place] [address] [place] Color (U) Red Abnormal Yellow [facility] Comment on above: Order Comment: Speci men Type: URINE SPECIMENOrdering Facility: [facility] Address: [address] [place] [address] Performed By: #### 2 4356-8 ####[facility] [id number] [place] [address] [place] Glucose Test strip (U) [Mass/Vol] Negative Normal Trace, Negative [facility] Comment on above: Order Comment: Speci men Type: URINE SPECIMENOrdering Facility: [facility] Address: [address] [place] [address] Performed By: #### 2 4356-8 ####[facility] [id number] [place] [address] [place] Hemoglobin Ql (U) 3+ Abnormal Negative, Trace [facility] Comment on above: Order Comment: Speci men Type: URINE SPECIMENOrdering Facility: [facility] Address: [address] [place] [address] Performed By: #### 2 4356-8 ####[facility] [id number] [place] [address] [place] Ketones Ql (U) Negative Normal Negative, Trace [facility] Comment on above: Order Comment: Speci men Type: URINE SPECIMENOrdering Facility: [facility] Address: [address] [place] [address] Performed By: #### 2 4356-8 ####[facility] [id number] [place] [address] [place] Leukocyte esterase Test strip Ql (U) 500 Arnulfo/uL Abnormal Negative, 25 Arnulfo/uL [facility] Comment on above: Order Comment: Speci men Type: URINE SPECIMENOrdering Facility: [facility] Address: [address] [place], [place] [address] Performed By: #### 2 4356-8 ####[facility] [id number] [place] [address] [place] Nitrite Ql (U) 1+ Abnormal Negative [facility] Comment on above: Order Comment: Speci men Type: URINE SPECIMENOrdering Facility: [facility] Address: [address] [place], [place] [address] Performed By: #### 2 4356-8 ####[facility] [id number] [place] [address] [place] pH (U) 7.0 [pH] Normal 5.0-8.0 [facility] Comment on above: Order Comment: Speci men Type: URINE SPECIMENOrdering Facility: [facility] Address: [address] Performed By: #### 2 4356-8 ####[facility] [id number] [address] STATES [facility] Protein (U) [Mass/Vol] 3+ Abnormal Trace , Negative [facility] Comment on above: Order Comment: Speci men Type: URINE SPECIMENOrdering Facility: [facility] Address: [address] [place] [address] Performed By: #### 2 4356-8 ####[facility] [id number] [address] STATES [facility] RBC LM.HPF (Urine sed) [#/Area] /[HPF] Abnormal 0-3 /HPF [facility] Comment on above: Order Comment: Speci men Type: URINE SPECIMENOrdering Facility: [facility] Address: [address] [place] [address] Performed By: #### 2 4356-8 ####[facility] [id number] [address] Specific gravity (U) [Rel density] 1.008 Normal 1.005-1.030 [facility] Comment on above: Order Comment: Speci men Type: URINE SPECIMENOrdering Facility: [facility] Address: [address] [place] [address] Performed By: #### 2 4356-8 ####[facility] [id number] [address] Urobilinogen Ql (U) Negative Normal Negative [facility] Comment on above: Order Comment: Speci men Type: URINE SPECIMENOrdering Facility: [facility] Address: [address] [place] [address] Performed By: #### 2 4356-8 ####[facility] [id number] [address] [place] WBC LM.HPF (Urine sed) [#/Area] /[HPF] Abnormal 0-5 /HPF [facility] Comment on above: Order Comment: Speci men Type: URINE SPECIMENOrdering Facility: [facility] Address: [address] Performed By: #### 2 4356-8 ####[facility] [id number] [place] [address] [place] CNPNon 11-12-2022 CNPN Normal [facility] CNOVon 10-27-2022 CNOV Normal [facility] XR ABDOMEN 1V SUPINEon 10-27 XR ABDOMEN 1V SUPINE Normal [facility] CNPNon 10-20-2022 CNPN Normal [facility] CNPNon 10-19-2022 CNPN Normal [facility] CASE MANAGEMon 10-14-2022 CASE MANAGEM Normal [facility] CASE MANAGEM Normal [facility] CNDSon 10-14-2022 CNDS Normal [facility] CONSULTon 10-14-2022 CONSULT Normal [facility] NURSING PROGon 10-14-2022 NURSING PROG Normal [facility] BRIEF OP NOTon 10-13-2022 BRIEF OP NOT Normal [facility] Basic metabolic 2000 panelon 10-13-2022 Anion gap [Moles/Vol] 10 mmol/L Normal 9-18 [facility] Comment on above: Order Comment: Speci men Type: BLOOD SPECIMENOrdering Facility: [facility] Address: [address] Performed By: #### 2 4321-2 ####[facility] [id number] [place] [address] [place] Calcium [Mass/Vol] 8.8 mg/dL Normal 8.5-10.2 [facility] Comment on above: Order Comment: Speci men Type: BLOOD SPECIMENOrdering Facility: [facility] Address: [address] [place] [address] Performed By: #### 2 4321-2 ####[facility] [id number] [address] [id number] Chloride [Moles/Vol] 108 mmol/L High 97-105 [facility] Comment on above: Order Comment: Speci men Type: BLOOD SPECIMENOrdering Facility: [facility] Address: [address] [place] [address] Performed By: #### 2 4321-2 ####[facility] [id number] [address] [place] CO2 [Moles/Vol] 26 mmol/L Normal 22-30 [facility] Comment on above: Order Comment: Speci men Type: BLOOD SPECIMENOrdering Facility: [facility] Address: [address] [place] [address] Performed By: #### 2 4321-2 ####[facility] [id number] [address] OF [facility] Creatinine [Mass/Vol] 0.94 mg/dL Normal 0.73-1.22 [facility] Comment on above: Order Comment: Speci men Type: BLOOD SPECIMENOrdering Facility: [facility] Address: [address] [place] [address] Performed By: #### 2 4321-2 ####[facility] [id number] [address] OF [facility] ESTIMATED GLOMERULAR FILTRATION RATE 89 mL/min/1.73m??? Normal >=60 [facility] Comment on above: Order Comment: Speci men Type: BLOOD SPECIMENOrdering Facility: [facility] Address: [address] [place] [address] Result Comment: Ignacia mated Glomerular Filtration Rate [...] actual GFR. Performed By: #### 2 4321-2 ####[facility] [id number] [place] [address] [place] Glucose [Mass/Vol] 88 mg/dL Normal 74-99 [facility] Comment on above: Order Comment: Speci men Type: BLOOD SPECIMENOrdering Facility: [facility] Address: [address] [place] [address] Result Comment: The [place] Diabetes Association (ADA) provides guidance for cutoff [...] Standards of Medical Care in Diabetes 2016, [place] [employer]. Diabetes Care. 2016.39(Suppl 1). Performed By: #### 2 4321-2 ####[facility] [id number] [place] [address] [place] Potassium [Moles/Vol] 3.8 mmol/L Normal 3.7-5.1 [facility] Comment on above: Order Comment: Speci men Type: BLOOD SPECIMENOrdering Facility: [facility] Address: [address] [place] [address] Performed By: #### 2 4321-2 ####[facility] [id number] [place] [address] [place] Sodium [Moles/Vol] 144 mmol/L Normal 136-144 [facility] Comment on above: Order Comment: Speci men Type: BLOOD SPECIMENOrdering Facility: [facility] Address: [address] [place] [address] Performed By: #### 2 4321-2 ####[facility] [id number] [place] [address] [place] Urea nitrogen [Mass/Vol] 9 mg/dL Normal 9-24 [facility] Comment on above: Order Comment: Speci men Type: BLOOD SPECIMENOrdering Facility: [facility] Address: [address] [place] [address] Performed By: #### 2 4321-2 ####[facility] [id number] [place] [address] [place] CASE MGT INIT ASSESon 2022 CASE MGT INIT ASSES Normal [facility] CBC panel Auto (Bld)on 10-13 Erythrocyte distribution width (RBC) [Ratio] 14.1 % Normal 11.5-15.0 [facility] Comment on above: Order Comment: Speci men Type: BLOOD SPECIMENOrdering Facility: [facility] Address: [address] [place] [address] Performed By: #### 5 8410-2 ####[facility] [id number] [place] [address] [place] Hematocrit (Bld) [Volume fraction] 27.1 % Low 39.0-51.0 [facility] Comment on above: Order Comment: Speci men Type: BLOOD SPECIMENOrdering Facility: [facility] Address: [address] [place] [address] Performed By: #### 5 8410-2 ####[facility] [id number] [place] [address] [place] Hemoglobin (Bld) [Mass/Vol] 8.8 g/dL Low 13.0-17.0 [facility] Comment on above: Order Comment: Speci men Type: BLOOD SPECIMENOrdering Facility: [facility] Address: [address] [place] [address] Performed By: #### 5 8410-2 ####[facility] [id number] [address] MCH (RBC) [Entitic mass] 27.7 pg Normal 26.0-34.0 [facility] Comment on above: Order Comment: Speci men Type: BLOOD SPECIMENOrdering Facility: [facility] Address: [address] [place] [address] Performed By: #### 5 8410-2 ####[facility] [id number] [address] MCHC (RBC) [Mass/Vol] 32.5 g/dL Normal 30.5-36.0 [facility] Comment on above: Order Comment: Speci men Type: BLOOD SPECIMENOrdering Facility: [facility] Address: [address] [place] [address] Performed By: #### 5 8410-2 ####[facility] [id number] [address] OF [facility] MCV (RBC) [Entitic vol] 85.2 fL Normal 80.0-100.[address] [facility] Comment on above: Order Comment: Speci men Type: BLOOD SPECIMENOrdering Facility: [facility] Address: [address] [place] [address] Performed By: #### 5 8410-2 ####[facility] [id number] [place] [address] [place] Nucleated RBC (Bld) [#/Vol] 10*3/uL Normal <0.01 [facility] Comment on above: Order Comment: Speci men Type: BLOOD SPECIMENOrdering Facility: [facility] Address: [address] [place], [place] [address] Performed By: #### 5 8410-2 ####[facility] [id number] [address] [place] Platelet mean volume (Bld) [Entitic vol] 10.0 fL Normal 9.0-12.7 [facility] Comment on above: Order Comment: Speci men Type: BLOOD SPECIMENOrdering Facility: [facility] Address: [address] Performed By: #### 5 8410-2 ####[facility] [id number] [place] [address] [place] Platelets (Bld) [#/Vol] 186 10*3/uL Normal 150-400 [facility] Comment on above: Order Comment: Speci men Type: BLOOD SPECIMENOrdering Facility: [facility] Address: [address] [place], [place] [address] Performed By: #### 5 8410-2 ####[facility] [id number] [place] [address] [place] RBC (Bld) [#/Vol] 3.18 10*6/uL Low 4.20-6.00 [facility] Comment on above: Order Comment: Speci men Type: BLOOD SPECIMENOrdering Facility: [facility] Address: [address] [place], [place] [address] Performed By: #### 5 8410-2 ####[facility] [id number] [place] [address] [place] WBC (Bld) [#/Vol] 4.95 10*3/uL Normal 3.70-11.00 [facility] Comment on above: Order Comment: Speci men Type: BLOOD SPECIMENOrdering Facility: [facility] Address: [address] [place], [place] [address] Performed By: #### 5 8410-2 ####[facility] [id number] [place] [address] [place] CONSULT PROGon 10-13-2022 CONSULT PROG Normal [facility] IR LINE REMOVAL CONSULTon IR LINE REMOVAL CONSULT Normal [facility] THERAPY NTon 07-19-2023 THERAPY NT Normal [facility] THERAPY NT Normal [facility] Basic metabolic 2000 panelon 10-12-2022 Anion gap [Moles/Vol] 7 mmol/L Low 9-18 [facility] Comment on above: Order Comment: Speci men Type: BLOOD SPECIMENOrdering Facility: [facility] Address: [address] [place] [address] Performed By: #### 2 4321-2 ####[facility] [id number] [place] [address] [place] Calcium [Mass/Vol] 8.7 mg/dL Normal 8.5-10.2 [facility] Comment on above: Order Comment: Speci men Type: BLOOD SPECIMENOrdering Facility: [facility] Address: [address] [place] [address] Performed By: #### 2 4321-2 ####[facility] [id number] [place] [address] [place] Chloride [Moles/Vol] 102 mmol/L Normal 97-105 [facility] Comment on above: Order Comment: Speci men Type: BLOOD SPECIMENOrdering Facility: [facility] Address: [address] [place] [address] Performed By: #### 2 4321-2 ####[facility] [id number] [place] [address] [place] CO2 [Moles/Vol] 25 mmol/L Normal 22-30 [facility] Comment on above: Order Comment: Speci men Type: BLOOD SPECIMENOrdering Facility: [facility] Address: [address] [place] [address] Performed By: #### 2 4321-2 ####[facility] [id number] [place] [address] [place] Creatinine [Mass/Vol] 0.86 mg/dL Normal 0.73-1.22 [facility] Comment on above: Order Comment: Speci men Type: BLOOD SPECIMENOrdering Facility: [facility] Address: [address] [place] [address] Performed By: #### 2 4321-2 ####[facility] [id number] [place] [address] [place] ESTIMATED GLOMERULAR FILTRATION RATE 95 mL/min/1.73m??? Normal >=60 [facility] Comment on above: Order Comment: Cierra men Type: BLOOD SPECIMENOrdering Facility: [facility] Address: [address] [place] [address] Result Comment: Ignacia mated Glomerular Filtration Rate [...] actual GFR. Performed By: #### 2 4321-2 ####[facility] [id number] [place] [address] [place] Glucose [Mass/Vol] 136 mg/dL High 74-99 [facility] Comment on above: Order Comment: Cierra cartwright Type: BLOOD SPECIMENOrdering Facility: [facility] Address: [address] [place] [address] Result Comment: The [place] Diabetes Association (ADA) provides guidance for cutoff [...] Standards of Medical Care in Diabetes 2016, [place] [employer]. Diabetes Care. 2016.39(Suppl 1). Performed By: #### 2 4321-2 ####[facility] [id number] [place] [address] [place] Potassium [Moles/Vol] 4.3 mmol/L Normal 3.7-5.1 [facility] Comment on above: Order Comment: Speci men Type: BLOOD SPECIMENOrdering Facility: [facility] Address: [address] [place] [address] Performed By: #### 2 4321-2 ####[facility] [id number] [place] [address] [place] Sodium [Moles/Vol] 134 mmol/L Low 136-144 [facility] Comment on above: Order Comment: Speci men Type: BLOOD SPECIMENOrdering Facility: [facility] Address: [address] [place] [address] Performed By: #### 2 4321-2 ####[facility] [id number] [place] [address] [place] Urea nitrogen [Mass/Vol] 12 mg/dL Normal 9-24 [facility] Comment on above: Order Comment: Speci men Type: BLOOD SPECIMENOrdering Facility: [facility] Address: [address] [place] [address] Performed By: #### 2 4321-2 ####[facility] [id number] [place] [address] [place] CBC panel Auto (Bld)on 10-12 Erythrocyte distribution width (RBC) [Ratio] 13.7 % Normal 11.5-15.0 [facility] Comment on above: Order Comment: Speci men Type: BLOOD SPECIMENOrdering Facility: [facility] Address: [address] [place] [address] Performed By: #### 5 8410-2 ####[facility] [id number] [place] [address] [place] Hematocrit (Bld) [Volume fraction] 30.7 % Low 39.0-51.0 [facility] Comment on above: Order Comment: Speci men Type: BLOOD SPECIMENOrdering Facility: [facility] Address: [address] [place] [address] Performed By: #### 5 8410-2 ####[facility] [id number] [place] [address] [place] Hemoglobin (Bld) [Mass/Vol] 9.8 g/dL Low 13.0-17.0 [facility] Comment on above: Order Comment: Speci men Type: BLOOD SPECIMENOrdering Facility: [facility] Address: [address] [place] [address] Performed By: #### 5 8410-2 ####[facility] [id number] [address] [place] MCH (RBC) [Entitic mass] 27.3 pg Normal 26.0-34.0 [facility] Comment on above: Order Comment: Speci men Type: BLOOD SPECIMENOrdering Facility: [facility] Address: [address] [place] [address] Performed By: #### 5 8410-2 ####[facility] [id number] [address] [place] MCHC (RBC) [Mass/Vol] 31.9 g/dL Normal 30.5-36.0 [facility] Comment on above: Order Comment: Speci men Type: BLOOD SPECIMENOrdering Facility: [facility] Address: [address] [place] [address] Performed By: #### 5 8410-2 ####[facility] [id number] [address] [place] MCV (RBC) [Entitic vol] 85.5 fL Normal 80.0-100.[address] [facility] Comment on above: Order Comment: Speci men Type: BLOOD SPECIMENOrdering Facility: [facility] Address: [address] Performed By: #### 5 8410-2 ####[facility] [id number] [place] [address] [place] Nucleated RBC (Bld) [#/Vol] 10*3/uL Normal <0.01 [facility] Comment on above: Order Comment: Speci men Type: BLOOD SPECIMENOrdering Facility: [facility] Address: [address] Performed By: #### 5 8410-2 ####[facility] [id number] [place] [address] [place] Platelet mean volume (Bld) [Entitic vol] 10.3 fL Normal 9.0-12.7 [facility] Comment on above: Order Comment: Speci men Type: BLOOD SPECIMENOrdering Facility: [facility] Address: [address] Performed By: #### 5 8410-2 ####[facility] [id number] [place] [address] [place] Platelets (Bld) [#/Vol] 218 10*3/uL Normal 150-400 [facility] Comment on above: Order Comment: Speci men Type: BLOOD SPECIMENOrdering Facility: [facility] Address: [address] [place] [address] Performed By: #### 5 8410-2 ####[facility] [id number] [place] [address] [place] RBC (Bld) [#/Vol] 3.59 10*6/uL Low 4.20-6.00 [facility] Comment on above: Order Comment: Speci men Type: BLOOD SPECIMENOrdering Facility: [facility] Address: [address] [place] [address] Performed By: #### 5 8410-2 ####[facility] [id number] [address] [address] [place] WBC (Bld) [#/Vol] 11.23 10*3/uL High 3.70-11.00 [facility] Comment on above: Order Comment: Speci men Type: BLOOD SPECIMENOrdering Facility: [facility] Address: [place] [address] Performed By: #### 5 8410-2 ####[facility] [id number] [place] [address] [place] CONSULT PROGon 10-12-2022 CONSULT PROG Normal [facility] NURSING PROGon 10-12-2022 NURSING PROG Normal [facility] ANES POSTPROC EVALon 023 ANES POSTPROC EVAL Normal [facility] ANES PRE-OPon 10-11-2022 ANES PRE-OP Normal [facility] BRIEF OP NOTon 10-11-2022 BRIEF OP NOT Normal [facility] Bacteria Ur Culton Bacteria identified Cx Nom (U) CULTURE, URINE: No growth (<100 CFU/ml) Normal [facility] Comment on above: Performed By: #### 6 30-4 ####[facility] [id number] [place] [address] [place] Basic metabolic 2000 panelon 10-11-2022 Anion gap [Moles/Vol] 9 mmol/L Normal 9-18 [facility] Comment on above: Order Comment: Speci men Type: BLOOD SPECIMENOrdering Facility: [facility] Address: [place] [address] Performed By: #### 2 4321-2 ####[facility] [id number] [place] [address] [place] Calcium [Mass/Vol] 9.0 mg/dL Normal 8.5-10.2 [facility] Comment on above: Order Comment: Speci men Type: BLOOD SPECIMENOrdering Facility: [facility] Address: [address] [address] Performed By: #### 2 4321-2 ####[facility] [id number] [place] [address] [place] Chloride [Moles/Vol] 106 mmol/L High 97-105 [facility] Comment on above: Order Comment: Speci men Type: BLOOD SPECIMENOrdering Facility: [facility] Address: [address] [address] Performed By: #### 2 4321-2 ####[facility] [id number] [place] [address] [place] CO2 [Moles/Vol] 24 mmol/L Normal 22-30 [facility] Comment on above: Order Comment: Speci men Type: BLOOD SPECIMENOrdering Facility: [facility] Address: [address] Performed By: #### 2 4321-2 ####[facility] [id number] [place] [address] [place] Creatinine [Mass/Vol] 0.88 mg/dL Normal 0.73-1.22 [facility] Comment on above: Order Comment: Speci men Type: BLOOD SPECIMENOrdering Facility: [facility] Address: [address] Performed By: #### 2 4321-2 ####[facility] [id number] [place] [address] [place] ESTIMATED GLOMERULAR FILTRATION RATE 94 mL/min/1.73m??? Normal >=60 [facility] Comment on above: Order Comment: Speci men Type: BLOOD SPECIMENOrdering Facility: [facility] Address: [address] Result Comment: Ignacia mated Glomerular Filtration [...] actual GFR. Performed By: #### 2 4321-2 ####[facility] [id number] [place] [address] [place] Glucose [Mass/Vol] 101 mg/dL High 74-99 [facility] Comment on above: Order Comment: Cierra cartwright Type: BLOOD SPECIMENOrdering Facility: [facility] Address: [address] [address] Result Comment: The [place] Diabetes Association (ADA) provides guidance for cutoff [...] Standards of Medical Care in Diabetes 2016, [place] [employer]. Diabetes Care. 2016.39(Suppl 1). Performed By: #### 2 4321-2 ####[facility] [id number] [place] [address] [place] Potassium [Moles/Vol] 4.1 mmol/L Normal 3.7-5.1 [facility] Comment on above: Order Comment: Cierra cartwright Type: BLOOD SPECIMENOrdering Facility: [facility] Address: [address] [phone] Performed By: #### 2 4321-2 ####[facility] [id number] [place] [address] [place] Sodium [Moles/Vol] 139 mmol/L Normal 136-144 [facility] Comment on above: Order Comment: Speci men Type: BLOOD SPECIMENOrdering Facility: [facility] Address: [address] Performed By: #### 2 4321-2 ####[facility] [id number] [place] [address] [place] Urea nitrogen [Mass/Vol] 8 mg/dL Low 9-24 [facility] Comment on above: Order Comment: Speci men Type: BLOOD SPECIMENOrdering Facility: [facility] Address: [address] Performed By: #### 2 4321-2 ####[facility] [id number] [place] [address] [place] Anion gap [Moles/Vol] 7 mmol/L Low 9-18 [facility] Comment on above: Order Comment: Speci men Type: BLOOD SPECIMENOrdering Facility: [facility] Address: [address] Performed By: #### 2 4321-2 ####[facility] [id number] [place] [address] [place] Calcium [Mass/Vol] 9.0 mg/dL Normal 8.5-10.2 [facility] Comment on above: Order Comment: Speci men Type: BLOOD SPECIMENOrdering Facility: [facility] Address: [address] Performed By: #### 2 4321-2 ####[facility] [id number] [place] [address] [place] Chloride [Moles/Vol] 107 mmol/L High 97-105 [facility] Comment on above: Order Comment: Speci men Type: BLOOD SPECIMENOrdering Facility: [facility] Address: [address] Performed By: #### 2 4321-2 ####[facility] [id number] [place] [address] [place] CO2 [Moles/Vol] 25 mmol/L Normal 22-30 [facility] Comment on above: Order Comment: Speci men Type: BLOOD SPECIMENOrdering Facility: [facility] Address: [address] [place] [address] Performed By: #### 2 4321-2 ####[facility] [id number] [place] [address] [place] Creatinine [Mass/Vol] 0.82 mg/dL Normal 0.73-1.22 [facility] Comment on above: Order Comment: Speci men Type: BLOOD SPECIMENOrdering Facility: [facility] Address: [address] [place] [address] Performed By: #### 2 4321-2 ####[facility] [id number] [address] [place] ESTIMATED GLOMERULAR FILTRATION RATE 96 mL/min/1.73m??? Normal >=60 [facility] Comment on above: Order Comment: Speci men Type: BLOOD SPECIMENOrdering Facility: [facility] Address: [address] [place] [address] Result Comment: Ignacia mated Glomerular Filtration Rate [...] actual GFR. Performed By: #### 2 4321-2 ####[facility] [id number] [place] [address] [place] Glucose [Mass/Vol] 85 mg/dL Normal 74-99 [facility] Comment on above: Order Comment: Speci men Type: BLOOD SPECIMENOrdering Facility: [facility] Address: [address] [place], [place] [phone] Result Comment: The [place] Diabetes Association (ADA) provides guidance for cutoff [...] Standards of Medical Care in Diabetes 2016, [place] Diabetes Association. Diabetes Care. 2016.39(Suppl 1). Performed By: #### 2 4321-2 ####[facility] [id number] [place] [address] [place] Potassium [Moles/Vol] 3.7 mmol/L Normal 3.7-5.1 [facility] Comment on above: Order Comment: Speci men Type: BLOOD SPECIMENOrdering Facility: [facility] Address: [address] [place], [place] [address] Performed By: #### 2 4321-2 ####[facility] [id number] [place] [address] [place] Sodium [Moles/Vol] 139 mmol/L Normal 136-144 [facility] Comment on above: Order Comment: Speci men Type: BLOOD SPECIMENOrdering Facility: [facility] Address: [address] [place], [place] [address] Performed By: #### 2 4321-2 ####[facility] [id number] [place] [address] [place] Urea nitrogen [Mass/Vol] 8 mg/dL Low 9-24 [facility] Comment on above: Order Comment: Speci men Type: BLOOD SPECIMENOrdering Facility: [facility] Address: [address] [place] [address] Performed By: #### 2 4321-2 ####[facility] [id number] [address] [place] CALCULI ANALYSISon 3 Calculus analysis [Interp] Normal [facility] Comment on above: Order Comment: Speci men Type: CALCULUS SPECIMENOrdering Facility: [facility] Address: [address] [place] [address] Result Comment: This test was developed and its performance characteristics determined by [facility] [place] ([facility]). It has not been cleared or approved by the FDA. -[facility] is regulated under CLIA as qualified to perform high-complexity testing. This test is used for clinical purposes. It should not be regarded as investigational or for research. Performed By: #### C SA ####[facility] [id number] [address] [place] CALCULUS COLOR WHITE Normal [facility] Comment on above: Order Comment: Speci men Type: CALCULUS SPECIMENOrdering Facility: [facility] Address: [address] [place] [address] Performed By: #### C SA ####[facility] [id number] [address] [place] CALCULUS COMPOSITION 1 100% Calcium Phosphate Normal [facility] Comment on above: Order Comment: Speci men Type: CALCULUS SPECIMENOrdering Facility: [facility] Address: [address] [place] [address] Performed By: #### C SA ####[facility] [id number] [address] [place] CALCULUS SIZE AND WT Multiple pieces. 0.1902 GRAMS Normal [facility] Comment on above: Order Comment: Speci men Type: CALCULUS SPECIMENOrdering Facility: [facility] Address: [address] [place], [place] [address] Performed By: #### C SA ####[facility] [id number] [place] [address] [place] CALCULUS TYPE CALCULI/CALCULUS Normal [facility] Comment on above: Order Comment: Speci men Type: CALCULUS SPECIMENOrdering Facility: [facility] Address: [address] [place] [address] Performed By: #### C SA ####[facility] [id number] [place] [address] [place] CBC W Auto Differential pane l (Bld)on 10-11-2022 Basophils (Bld) [#/Vol] 0.03 10*3/uL Normal <0.11 [facility] Comment on above: Order Comment: Speci men Type: BLOOD SPECIMENOrdering Facility: [facility] Address: [address] [place] [address] Performed By: #### 5 7021-8 ####[facility] [id number] [place] [address] [place] Basophils/100 WBC (Bld) 0.4 % Normal [facility] Comment on above: Order Comment: Speci men Type: BLOOD SPECIMENOrdering Facility: [facility] Address: [address] [place] [address] Performed By: #### 5 7021-8 ####[facility] [id number] [address] [place] Differential cell count method Nom (Bld) Auto Normal [facility] Comment on above: Order Comment: Speci men Type: BLOOD SPECIMENOrdering Facility: [facility] Address: [address] [place] [address] Performed By: #### 5 7021-8 ####[facility] [id number] [place] [address] [place] Eosinophils (Bld) [#/Vol] 0.07 10*3/uL Normal <0.46 [facility] Comment on above: Order Comment: Speci men Type: BLOOD SPECIMENOrdering Facility: [facility] Address: [address] [place] [address] Performed By: #### 5 7021-8 ####[facility] [id number] [address] [place] Eosinophils/100 WBC (Bld) 0.9 % Normal [facility] Comment on above: Order Comment: Speci men Type: BLOOD SPECIMENOrdering Facility: [facility] Address: [address] [place] [address] Performed By: #### 5 7021-8 ####[facility] [id number] [address] [place] Erythrocyte distribution width (RBC) [Ratio] 14.1 % Normal 11.5-15.0 [facility] Comment on above: Order Comment: Speci men Type: BLOOD SPECIMENOrdering Facility: [facility] Address: [address] [place] [address] Performed By: #### 5 7021-8 ####[facility] [id number] [address] [place] Hematocrit (Bld) [Volume fraction] 32.0 % Low 39.0-51.0 [facility] Comment on above: Order Comment: Speci men Type: BLOOD SPECIMENOrdering Facility: [facility] Address: [address] [place] [address] Performed By: #### 5 7021-8 ####[facility] [id number] [place] [address] [place] Hemoglobin (Bld) [Mass/Vol] 10.2 g/dL Low 13.0-17.0 [facility] Comment on above: Order Comment: Speci men Type: BLOOD SPECIMENOrdering Facility: [facility] Address: [address] Performed By: #### 5 7021-8 ####[facility] [id number] [place] [address] [place] Immature granulocytes (Bld) [#/Vol] 0.05 10*3/uL Normal <0.10 [facility] Comment on above: Order Comment: Speci men Type: BLOOD SPECIMENOrdering Facility: [facility] Address: [address] Performed By: #### 5 7021-8 ####[facility] [id number] [address] STATES OF [facility] Immature granulocytes/100 WBC (Bld) 0.6 % Normal [facility] Comment on above: Order Comment: Speci men Type: BLOOD SPECIMENOrdering Facility: [facility] Address: [address] [place] [address] Performed By: #### 5 7021-8 ####[facility] [id number] [place] [address] [place] Lymphocytes (Bld) [#/Vol] 0.32 10*3/uL Low 1.00-4.00 [facility] Comment on above: Order Comment: Speci men Type: BLOOD SPECIMENOrdering Facility: [facility] Address: [address] [place] [address] Performed By: #### 5 7021-8 ####[facility] [id number] [address] [place] Lymphocytes/100 WBC (Bld) 4.0 % Normal [facility] Comment on above: Order Comment: Speci men Type: BLOOD SPECIMENOrdering Facility: [facility] Address: [address] [place] [address] Performed By: #### 5 7021-8 ####[facility] [id number] [address] MCH (RBC) [Entitic mass] 27.4 pg Normal 26.0-34.0 [facility] Comment on above: Order Comment: Speci men Type: BLOOD SPECIMENOrdering Facility: [facility] Address: [address] [place] [address] Performed By: #### 5 7021-8 ####[facility] [id number] [address] MCHC (RBC) [Mass/Vol] 31.9 g/dL Normal 30.5-36.0 [facility] Comment on above: Order Comment: Speci men Type: BLOOD SPECIMENOrdering Facility: [facility] Address: [address] [place] [address] Performed By: #### 5 7021-8 ####[facility] [id number] [address] MCV (RBC) [Entitic vol] 86.0 fL Normal 80.0-100.[address] [facility] Comment on above: Order Comment: Speci men Type: BLOOD SPECIMENOrdering Facility: [facility] Address: [address] [place] [address] Performed By: #### 5 7021-8 ####[facility] [id number] [place] [address] [place] Monocytes (Bld) [#/Vol] 0.08 10*3/uL Normal <0.87 [facility] Comment on above: Order Comment: Speci men Type: BLOOD SPECIMENOrdering Facility: [facility] Address: [address] [place] [address] Performed By: #### 5 7021-8 ####[facility] [id number] [address] [place] Monocytes/100 WBC (Bld) 1.0 % Normal [facility] Comment on above: Order Comment: Speci men Type: BLOOD SPECIMENOrdering Facility: [facility] Address: [address] Performed By: #### 5 7021-8 ####[facility] [id number] [place] [address] [place] Neutrophils (Bld) [#/Vol] 7.39 10*3/uL Normal 1.45-7.50 [facility] Comment on above: Order Comment: Speci men Type: BLOOD SPECIMENOrdering Facility: [facility] Address: [address] [address] Performed By: #### 5 7021-8 ####[facility] [id number] [place] [address] [place] Neutrophils/100 WBC (Bld) 93.1 % Normal [facility] Comment on above: Order Comment: Speci men Type: BLOOD SPECIMENOrdering Facility: [facility] Address: [address] Performed By: #### 5 7021-8 ####[facility] [id number] [place] [address] [place] Nucleated RBC (Bld) [#/Vol] 10*3/uL Normal <0.01 [facility] Comment on above: Order Comment: Speci men Type: BLOOD SPECIMENOrdering Facility: [facility] Address: [address] Performed By: #### 5 7021-8 ####[facility] [id number] [place] [address] [place] Nucleated RBC/100 WBC (Bld) [Ratio] 0.0 /100 WBC Normal [facility] Comment on above: Order Comment: Speci men Type: BLOOD SPECIMENOrdering Facility: [facility] Address: [address] Performed By: #### 5 7021-8 ####[facility] [id number] [place] [address] [place] Platelet mean volume (Bld) [Entitic vol] 9.3 fL Normal 9.0-12.7 [facility] Comment on above: Order Comment: Speci men Type: BLOOD SPECIMENOrdering Facility: [facility] Address: [address] [place] [address] Performed By: #### 5 7021-8 ####[facility] [id number] [place] [address] [place] Platelets (Bld) [#/Vol] 212 10*3/uL Normal 150-400 [facility] Comment on above: Order Comment: Speci men Type: BLOOD SPECIMENOrdering Facility: [facility] Address: [address] [place] [address] Performed By: #### 5 7021-8 ####[facility] [id number] [place] [address] [place] RBC (Bld) [#/Vol] 3.72 10*6/uL Low 4.20-6.00 [facility] Comment on above: Order Comment: Speci men Type: BLOOD SPECIMENOrdering Facility: [facility] Address: [address] [place] [address] Performed By: #### 5 7021-8 ####[facility] [id number] [place] [address] [place] WBC (Bld) [#/Vol] 7.94 10*3/uL Normal 3.70-11.00 [facility] Comment on above: Order Comment: Speci men Type: BLOOD SPECIMENOrdering Facility: [facility] Address: [address] [place] [address] Performed By: #### 5 7021-8 ####[facility] [id number] [place] [address] [place] CBC panel Auto (Bld)on 10-11 Erythrocyte distribution width (RBC) [Ratio] 14.1 % Normal 11.5-15.0 [facility] Comment on above: Order Comment: Speci men Type: BLOOD SPECIMENOrdering Facility: [facility] Address: [address] [place] [address] Performed By: #### 5 8410-2 ####[facility] [id number] [address] [place] Hematocrit (Bld) [Volume fraction] 29.1 % Low 39.0-51.0 [facility] Comment on above: Order Comment: Speci men Type: BLOOD SPECIMENOrdering Facility: [facility] Address: [address] [place] [address] Performed By: #### 5 8410-2 ####[facility] [id number] [address] [place] Hemoglobin (Bld) [Mass/Vol] 9.3 g/dL Low 13.0-17.0 [facility] Comment on above: Order Comment: Speci men Type: BLOOD SPECIMENOrdering Facility: [facility] Address: [address] [place] [address] Performed By: #### 5 8410-2 ####[facility] [id number] [place] [address] [place] MCH (RBC) [Entitic mass] 27.2 pg Normal 26.0-34.0 [facility] Comment on above: Order Comment: Speci men Type: BLOOD SPECIMENOrdering Facility: [facility] Address: [address] [place] [address] Performed By: #### 5 8410-2 ####[facility] [id number] [address] [place] MCHC (RBC) [Mass/Vol] 32.0 g/dL Normal 30.5-36.0 [facility] Comment on above: Order Comment: Speci men Type: BLOOD SPECIMENOrdering Facility: [facility] Address: [address] [place] [address] Performed By: #### 5 8410-2 ####[facility] [id number] [address] [place] MCV (RBC) [Entitic vol] 85.1 fL Normal 80.0-100.0 [facility] Comment on above: Order Comment: Speci men Type: BLOOD SPECIMENOrdering Facility: [facility] Address: [address] [place] [address] Performed By: #### 5 8410-2 ####[facility] [id number] [place] [address] [place] Nucleated RBC (Bld) [#/Vol] 10*3/uL Normal <0.01 [facility] Comment on above: Order Comment: Speci men Type: BLOOD SPECIMENOrdering Facility: [facility] Address: [address] [place] [address] Performed By: #### 5 8410-2 ####[facility] [id number] [place] [address] [place] Platelet mean volume (Bld) [Entitic vol] 9.6 fL Normal 9.0-12.7 [facility] Comment on above: Order Comment: Speci men Type: BLOOD SPECIMENOrdering Facility: [facility] Address: [address] [place] [address] Performed By: #### 5 8410-2 ####[facility] [id number] [place] [address] [place] Platelets (Bld) [#/Vol] 221 10*3/uL Normal 150-400 [facility] Comment on above: Order Comment: Speci men Type: BLOOD SPECIMENOrdering Facility: [facility] Address: [address] [place] [address], [place] [address] Performed By: #### 5 8410-2 ####[facility] [id number] [place] [address] [place] RBC (Bld) [#/Vol] 3.42 10*6/uL Low 4.20-6.00 [facility] Comment on above: Order Comment: Speci men Type: BLOOD SPECIMENOrdering Facility: [facility] Address: [address] Performed By: #### 5 8410-2 ####[facility] [id number] [place] [address] [place] WBC (Bld) [#/Vol] 4.18 10*3/uL Normal 3.70-11.00 [facility] Comment on above: Order Comment: Speci men Type: BLOOD SPECIMENOrdering Facility: [facility] Address: [address] [place] [address] Performed By: #### 5 8410-2 ####[facility] [id number] [place] [address] [place] CONSULTon 10-11-2022 CONSULT Normal [facility] NURSING PROGon 10-11-2022 NURSING PROG Normal [facility] NURSING PROG Normal [facility] NUTRITIONon 10-11-2022 NUTRITION Normal [facility] OPERATIVE NOon 10-11-2022 OPERATIVE NO Normal [facility] XR CHEST 1V FRONTAL PORTon 0 10-11-2022 XR CHEST 1V FRONTAL PORT Normal [facility] ALLIED HEALTHon 10-10-2022 ALLIED HEALTH Normal [facility] Basic metabolic 2000 panelon 10-10-2022 Anion gap [Moles/Vol] 12 mmol/L Normal 9-18 [facility] Comment on above: Order Comment: Speci men Type: BLOOD SPECIMENOrdering Facility: [facility] Address: [address] [phone] Performed By: #### 2 4321-2 ####[facility] [id number] [place] [address] [place] Calcium [Mass/Vol] 9.4 mg/dL Normal 8.5-10.2 [facility] Comment on above: Order Comment: Speci men Type: BLOOD SPECIMENOrdering Facility: [facility] Address: [address] [place] [address] Performed By: #### 2 4321-2 ####[facility] [id number] [place] [address] [place] Chloride [Moles/Vol] 106 mmol/L High 97-105 [facility] Comment on above: Order Comment: Speci men Type: BLOOD SPECIMENOrdering Facility: [facility] Address: [address] [place] [address] Performed By: #### 2 4321-2 ####[facility] [id number] [place] [address] [place] CO2 [Moles/Vol] 22 mmol/L Normal 22-30 [facility] Comment on above: Order Comment: Speci men Type: BLOOD SPECIMENOrdering Facility: [facility] Address: [address] [place] [address] Performed By: #### 2 4321-2 ####[facility] [id number] [place] [address] [place] Creatinine [Mass/Vol] 0.74 mg/dL Normal 0.73-1.22 [facility] Comment on above: Order Comment: Speci men Type: BLOOD SPECIMENOrdering Facility: [facility] Address: [address] [place] [address] Performed By: #### 2 4321-2 ####[facility] [id number] [place] [address] [place] ESTIMATED GLOMERULAR FILTRATION RATE 99 mL/min/1.73m??? Normal >=60 [facility] Comment on above: Order Comment: Cierra cartwright Type: BLOOD SPECIMENOrdering Facility: [facility] Address: [address] [place] [address] Result Comment: Ignacia mated Glomerular Filtration Rate [...] actual GFR. Performed By: #### 2 4321-2 ####[facility] [id number] [place] [address] [place] Glucose [Mass/Vol] 90 mg/dL Normal 74-99 [facility] Comment on above: Order Comment: Cierra cartwright Type: BLOOD SPECIMENOrdering Facility: [facility] Address: [address] [address] Result Comment: The [place] [employer] (ADA) provides guidance for cutoff [...] Standards of Medical Care in Diabetes 2016, [place] [employer]. Diabetes Care. 2016.39(Suppl 1). Performed By: #### 2 4321-2 ####[facility] [id number] [place] [address] [place] Potassium [Moles/Vol] 3.6 mmol/L Low 3.7-5.1 [facility] Comment on above: Order Comment: Cierra cartwright Type: BLOOD SPECIMENOrdering Facility: [facility] Address: [address] [place] [address] Performed By: #### 2 4321-2 ####[facility] [id number] [place] [address] [place] Sodium [Moles/Vol] 140 mmol/L Normal 136-144 [facility] Comment on above: Order Comment: Speci men Type: BLOOD SPECIMENOrdering Facility: [facility] Address: [address] Performed By: #### 2 4321-2 ####[facility] [id number] [place] [address] [place] Urea nitrogen [Mass/Vol] 7 mg/dL Low 9-24 [facility] Comment on above: Order Comment: Speci men Type: BLOOD SPECIMENOrdering Facility: [facility] Address: [address] Performed By: #### 2 4321-2 ####[facility] [id number] [place] [address] [place] CBC W Auto Differential pane l (Bld)on 10-10-2022 Basophils (Bld) [#/Vol] 0.05 10*3/uL Normal <0.11 [facility] Comment on above: Order Comment: Speci men Type: BLOOD SPECIMENOrdering Facility: [facility] Address: [address] Performed By: #### 5 7021-8 ####[facility] [id number] [place] [address] [place] Basophils/100 WBC (Bld) 0.7 % Normal [facility] Comment on above: Order Comment: Speci men Type: BLOOD SPECIMENOrdering Facility: [facility] Address: [address] Performed By: #### 5 7021-8 ####[facility] [id number] [place] [address] [place] Differential cell count method Nom (Bld) Auto Normal [facility] Comment on above: Order Comment: Speci men Type: BLOOD SPECIMENOrdering Facility: [facility] Address: [address] [place] [address] Performed By: #### 5 7021-8 ####[facility] [id number] [place] [address] [place] Eosinophils (Bld) [#/Vol] 0.26 10*3/uL Normal <0.46 [facility] Comment on above: Order Comment: Speci men Type: BLOOD SPECIMENOrdering Facility: [facility] Address: [address] [place] [address] Performed By: #### 5 7021-8 ####[facility] [id number] [place] [address] [place] Eosinophils/100 WBC (Bld) 3.6 % Normal [facility] Comment on above: Order Comment: Speci men Type: BLOOD SPECIMENOrdering Facility: [facility] Address: [address] [place], [place] [address] Performed By: #### 5 7021-8 ####[facility] [id number] [place] [address] [place] Erythrocyte distribution width (RBC) [Ratio] 14.0 % Normal 11.5-15.0 [facility] Comment on above: Order Comment: Speci men Type: BLOOD SPECIMENOrdering Facility: [facility] Address: [address] [place], [place] [address] Performed By: #### 5 7021-8 ####[facility] [id number] [place] [address] [place] Hematocrit (Bld) [Volume fraction] 32.2 % Low 39.0-51.0 [facility] Comment on above: Order Comment: Speci men Type: BLOOD SPECIMENOrdering Facility: [facility] Address: [address] Performed By: #### 5 7021-8 ####[facility] [id number] [place] [address] [place] Hemoglobin (Bld) [Mass/Vol] 10.4 g/dL Low 13.0-17.0 [facility] Comment on above: Order Comment: Speci men Type: BLOOD SPECIMENOrdering Facility: [facility] Address: [address] Performed By: #### 5 7021-8 ####[facility] [id number] [place] [address] [place] Immature granulocytes (Bld) [#/Vol] 0.03 10*3/uL Normal <0.10 [facility] Comment on above: Order Comment: Speci men Type: BLOOD SPECIMENOrdering Facility: [facility] Address: [address] Performed By: #### 5 7021-8 ####[facility] [id number] [place] [address] [place] Immature granulocytes/100 WBC (Bld) 0.4 % Normal [facility] Comment on above: Order Comment: Speci men Type: BLOOD SPECIMENOrdering Facility: [facility] Address: [address] Performed By: #### 5 7021-8 ####[facility] [id number] [place] [address] [place] Lymphocytes (Bld) [#/Vol] 2.29 10*3/uL Normal 1.00-4.00 [facility] Comment on above: Order Comment: Speci men Type: BLOOD SPECIMENOrdering Facility: [facility] Address: [address] [place] [address] Performed By: #### 5 7021-8 ####[facility] [id number] [address] [place] Lymphocytes/100 WBC (Bld) 31.4 % Normal [facility] Comment on above: Order Comment: Speci men Type: BLOOD SPECIMENOrdering Facility: [facility] Address: [address] [place] [address] Performed By: #### 5 7021-8 ####[facility] [id number] [address] MCH (RBC) [Entitic mass] 27.4 pg Normal 26.0-34.0 [facility] Comment on above: Order Comment: Speci men Type: BLOOD SPECIMENOrdering Facility: [facility] Address: [address] [place] [address] Performed By: #### 5 7021-8 ####[facility] [id number] [address] MCHC (RBC) [Mass/Vol] 32.3 g/dL Normal 30.5-36.0 [facility] Comment on above: Order Comment: Speci men Type: BLOOD SPECIMENOrdering Facility: [facility] Address: [address] [place] [address] Performed By: #### 5 7021-8 ####[facility] [id number] [address] [place] MCV (RBC) [Entitic vol] 84.7 fL Normal 80.0-100.[address] [facility] Comment on above: Order Comment: Speci men Type: BLOOD SPECIMENOrdering Facility: [facility] Address: [address] [place] [address] Performed By: #### 5 7021-8 ####[facility] [id number] [address] [place] Monocytes (Bld) [#/Vol] 0.72 10*3/uL Normal <0.87 [facility] Comment on above: Order Comment: Speci men Type: BLOOD SPECIMENOrdering Facility: [facility] Address: [address] Performed By: #### 5 7021-8 ####[facility] [id number] [place] [address] [place] Monocytes/100 WBC (Bld) 9.9 % Normal [facility] Comment on above: Order Comment: Speci men Type: BLOOD SPECIMENOrdering Facility: [facility] Address: [address] Performed By: #### 5 7021-8 ####[facility] [id number] [place] [address] [place] Neutrophils (Bld) [#/Vol] 3.94 10*3/uL Normal 1.45-7.50 [facility] Comment on above: Order Comment: Speci men Type: BLOOD SPECIMENOrdering Facility: [facility] Address: [address] Performed By: #### 5 7021-8 ####[facility] [id number] [place] [address] [place] Neutrophils/100 WBC (Bld) 54.0 % Normal [facility] Comment on above: Order Comment: Speci men Type: BLOOD SPECIMENOrdering Facility: [facility] Address: [address] Performed By: #### 5 7021-8 ####[facility] [id number] [place] [address] [place] Nucleated RBC (Bld) [#/Vol] 10*3/uL Normal <0.01 [facility] Comment on above: Order Comment: Speci men Type: BLOOD SPECIMENOrdering Facility: [facility] Address: [address] Performed By: #### 5 7021-8 ####[facility] [id number] [place] [address] [place] Nucleated RBC/100 WBC (Bld) [Ratio] 0.0 /100 WBC Normal [facility] Comment on above: Order Comment: Speci men Type: BLOOD SPECIMENOrdering Facility: [facility] Address: [address] [place] [address] Performed By: #### 5 7021-8 ####[facility] [id number] [place] [address] [place] Platelet mean volume (Bld) [Entitic vol] 10.0 fL Normal 9.0-12.7 [facility] Comment on above: Order Comment: Speci men Type: BLOOD SPECIMENOrdering Facility: [facility] Address: [address] [place] [address] Performed By: #### 5 7021-8 ####[facility] [id number] [place] [address] [place] Platelets (Bld) [#/Vol] 246 10*3/uL Normal 150-400 [facility] Comment on above: Order Comment: Speci men Type: BLOOD SPECIMENOrdering Facility: [facility] Address: [address] [place] [address] Performed By: #### 5 7021-8 ####[facility] [id number] [place] [address] [place] RBC (Bld) [#/Vol] 3.80 10*6/uL Low 4.20-6.00 [facility] Comment on above: Order Comment: Speci men Type: BLOOD SPECIMENOrdering Facility: [facility] Address: [address] [place] [address] Performed By: #### 5 7021-8 ####[facility] [id number] [place] [address] [place] WBC (Bld) [#/Vol] 7.29 10*3/uL Normal 3.70-11.00 [facility] Comment on above: Order Comment: Speci men Type: BLOOD SPECIMENOrdering Facility: [facility] Address: [address] Performed By: #### 5 7021-8 ####[facility] [id number] [place] [address] [place] XR CHEST 1V FRONTAL PORTon 0 10-10-2022 XR CHEST 1V FRONTAL PORT Normal [facility] HISTORY PHYSICALon HISTORY PHYSICAL Normal [facility] CASE MANAGEMon 09-26-2022 CASE MANAGEM Normal [facility] CNDSon 09-26-2022 CNDS Normal [facility] Renal function 2000 panelon 09-26-2022 Albumin [Mass/Vol] 3.3 g/dL Low 3.9-4.9 [facility] Comment on above: Order Comment: Speci men Type: BLOOD SPECIMENOrdering Facility: [facility] Address: [address] [place] [address] Performed By: #### 2 4362-6 ####[facility] [id number] [place] [address] [place] Anion gap [Moles/Vol] 9 mmol/L Normal 9-18 [facility] Comment on above: Order Comment: Speci men Type: BLOOD SPECIMENOrdering Facility: [facility] Address: [address] Performed By: #### 2 4362-6 ####[facility] [id number] [place] [address] [place] Calcium [Mass/Vol] 9.0 mg/dL Normal 8.5-10.2 [facility] Comment on above: Order Comment: Speci men Type: BLOOD SPECIMENOrdering Facility: [facility] Address: [address] Performed By: #### 2 4362-6 ####[facility] [id number] [place] [address] [place] Chloride [Moles/Vol] 105 mmol/L Normal 97-105 [facility] Comment on above: Order Comment: Speci men Type: BLOOD SPECIMENOrdering Facility: [facility] Address: [address] [place] [address] Performed By: #### 2 4362-6 ####[facility] [id number] [place] [address] [place] CO2 [Moles/Vol] 23 mmol/L Normal 22-30 [facility] Comment on above: Order Comment: Speci men Type: BLOOD SPECIMENOrdering Facility: [facility] Address: [address] [place] [address] Performed By: #### 2 4362-6 ####[facility] [id number] [place] [address] [place] Creatinine [Mass/Vol] 0.74 mg/dL Normal 0.73-1.22 [facility] Comment on above: Order Comment: Speci men Type: BLOOD SPECIMENOrdering Facility: [facility] Address: [address] [place] [address] Performed By: #### 2 4362-6 ####[facility] [id number] [address] [place] ESTIMATED GLOMERULAR FILTRATION RATE 99 mL/min/1.73m??? Normal >=60 [facility] Comment on above: Order Comment: Speci men Type: BLOOD SPECIMENOrdering Facility: [facility] Address: [address] [place] [address] Result Comment: Ignacia mated Glomerular Filtration Rate [...] actual GFR. Performed By: #### 2 4362-6 ####[facility] [id number] [place] [address] [place] Glucose [Mass/Vol] 104 mg/dL High 74-99 [facility] Comment on above: Order Comment: Speci men Type: BLOOD SPECIMENOrdering Facility: [facility] Address: [address] [place] [phone] Result Comment: The [place] Diabetes Association (ADA) provides guidance for cutoff [...] Standards of Medical Care in Diabetes 2016, [place] [employer]. Diabetes Care. 2016.39(Suppl 1). Performed By: #### 2 4362-6 ####[facility] [id number] [place] [address] [place] Phosphate [Mass/Vol] 2.6 mg/dL Low 2.7-4.8 [facility] Comment on above: Order Comment: Speci men Type: BLOOD SPECIMENOrdering Facility: [facility] Address: [address] [place] [address] Performed By: #### 2 4362-6 ####[facility] [id number] [address] [address] [place] Potassium [Moles/Vol] 3.9 mmol/L Normal 3.7-5.1 [facility] Comment on above: Order Comment: Speci men Type: BLOOD SPECIMENOrdering Facility: [facility] Address: [address] [place] [address] Performed By: #### 2 4362-6 ####[facility] [id number] [place] [address] [place] Sodium [Moles/Vol] 137 mmol/L Normal 136-144 [facility] Comment on above: Order Comment: Speci men Type: BLOOD SPECIMENOrdering Facility: [facility] Address: [address] [place] [address] Performed By: #### 2 4362-6 ####[facility] [id number] [place] [address] [place] Urea nitrogen [Mass/Vol] 5 mg/dL Low 9-24 [facility] Comment on above: Order Comment: Speci men Type: BLOOD SPECIMENOrdering Facility: [facility] Address: [address] [place] [address] Performed By: #### 2 4362-6 ####[facility] [id number] [place] [address] [place] CASE MANAGEMon 09-25-2022 CASE MANAGEM Normal [facility] NURSING PROGon 09-25-2022 NURSING PROG Normal [facility] Renal function 2000 panelon 09-25-2022 Albumin [Mass/Vol] 3.1 g/dL Low 3.9-4.9 [facility] Comment on above: Order Comment: Speci men Type: BLOOD SPECIMENOrdering Facility: [facility] Address: [address] Performed By: #### 2 4362-6, 2571-8 ####[facility] [id number] [place] [address] [place] Anion gap [Moles/Vol] 10 mmol/L Normal 9-18 [facility] Comment on above: Order Comment: Speci men Type: BLOOD SPECIMENOrdering Facility: [facility] Address: [address] Performed By: #### 2 4362-6, 2570-10 ####[facility] [id number] [place] [address] [place] Calcium [Mass/Vol] 8.7 mg/dL Normal 8.5-10.2 [facility] Comment on above: Order Comment: Speci men Type: BLOOD SPECIMENOrdering Facility: [facility] Address: [address] Performed By: #### 2 4362-6, 2570-10 ####[facility] [id number] [place] [address] [place] Chloride [Moles/Vol] 106 mmol/L High 97-105 [facility] Comment on above: Order Comment: Speci men Type: BLOOD SPECIMENOrdering Facility: [facility] Address: [address] Performed By: #### 2 4362-6, 2570-10 ####[facility] [id number] [place] [address] [place] CO2 [Moles/Vol] 23 mmol/L Normal 22-30 [facility] Comment on above: Order Comment: Speci men Type: BLOOD SPECIMENOrdering Facility: [facility] Address: [address] Performed By: #### 2 4362-6, 2570-10 ####[facility] [id number] [place] [address] [place] Creatinine [Mass/Vol] 0.73 mg/dL Normal 0.73-1.22 [facility] Comment on above: Order Comment: Speci men Type: BLOOD SPECIMENOrdering Facility: [facility] Address: [address] Performed By: #### 2 4362-6, 2570-8 ####[facility] [id number] [address] STATES OF [facility] ESTIMATED GLOMERULAR FILTRATION RATE 100 mL/min/1.73m??? Normal >=60 [facility] Comment on above: Order Comment: Cierra cartwright Type: BLOOD SPECIMENOrdering Facility: [facility] Address: [address] [place] [address] Result Comment: Ignacia mated Glomerular Filtration Rate [...] GFR. Performed By: #### 2 4362-6, 2570-8 ####[facility] [id number] [address] OF [facility] Glucose [Mass/Vol] 83 mg/dL Normal 74-99 [facility] Comment on above: Order Comment: Cierra cartwright Type: BLOOD SPECIMENOrdering Facility: [facility] Address: [address] [place] [address] Result Comment: The [place] Diabetes Association (ADA) provides guidance for cutoff [...] Standards of Medical Care in Diabetes 2016, [place] [employer]. Diabetes Care. 2016.39(Suppl 1). Performed By: #### 2 4362-6, 257-8 ####[facility] [id number] [place] [address] [place] Phosphate [Mass/Vol] 2.6 mg/dL Low 2.7-4.8 [facility] Comment on above: Order Comment: Speci men Type: BLOOD SPECIMENOrdering Facility: [facility] Address: [address] [place], [place] [address] Performed By: #### 2 4362-6, 8 ####[facility] [id number] [place] [address] [place] Potassium [Moles/Vol] 4.1 mmol/L Normal 3.7-5.1 [facility] Comment on above: Order Comment: Speci men Type: BLOOD SPECIMENOrdering Facility: [facility] Address: [address] [place], [place] [address] Performed By: #### 2 4362-6, 8 ####[facility] [id number] [place] [address] [place] Sodium [Moles/Vol] 139 mmol/L Normal 136-144 [facility] Comment on above: Order Comment: Speci men Type: BLOOD SPECIMENOrdering Facility: [facility] Address: [address] [place], [place] [address] Performed By: #### 2 4362-6, 8 ####[facility] [id number] [place] [address] [place] Urea nitrogen [Mass/Vol] 7 mg/dL Low 9-24 [facility] Comment on above: Order Comment: Speci men Type: BLOOD SPECIMENOrdering Facility: [facility] Address: [address] [place] [address] Performed By: #### 2 4362-6, 8 ####[facility] [id number] [place] [address] [place] Trigl SerPl-mCncon 3 Triglyceride [Mass/Vol] 172 mg/dL High <[address] [facility] Comment on above: Order Comment: Speci men Type: BLOOD SPECIMENOrdering Facility: [facility] Address: [address] [place], [place] [address] Result Comment: <150 mg/dL, Normal 150-199 mg/dL, Borderline high 200-499 mg/dL, High>499 mg/dL, Very highReference:1. National Cholesterol Education Program ATP III Guideline At-A-Glance Quick Desk Reference: National Heart, Lung, and Blood [place]. National Institutes of Health. 2001: NIH Publication No. 01-3305. Performed By: #### 2 4362-6, 2571-8 ####[facility] [id number] [address] OF [facility] Triglyceride [Mass/Vol]on FASTING TIME 8 hrs Normal [facility] Comment on above: Order Comment: Speci men Type: BLOOD SPECIMENOrdering Facility: [facility] Address: [address] [place] [address] Performed By: #### 2 4362-6, 2571-8 ####[facility] [id number] [address] OF [facility] XR ABDOMEN 1V SUPINEon 09-25 XR ABDOMEN 1V SUPINE Normal [facility] BRIEF OP NOTon 09-24-2022 BRIEF OP NOT Normal [facility] CASE MANAGEMon 09-24-2022 CASE MANAGEM Normal [facility] CASE MANAGEM Normal [facility] CONSULT PROGon 09-24-2022 CONSULT PROG Normal [facility] IR CENTRAL CATH PLACEMENTon 09-24-2022 IR CENTRAL CATH PLACEMENT Normal [facility] Magnesium SerPl-mCncon 09-24 Magnesium [Mass/Vol] 2.0 mg/dL Normal 1.7-2.3 [facility] Comment on above: Order Comment: Speci men Type: BLOOD SPECIMENOrdering Facility: [facility] Address: [address] [place] [address] Performed By: #### 1 9123-9, 09472-8 ####[facility] [id number] [place] [address] [place] PT EDon 09-24-2022 PT ED Normal [facility] Renal function 2000 panelon 09-24-2022 Albumin [Mass/Vol] 2.9 g/dL Low 3.9-4.9 [facility] Comment on above: Order Comment: Speci men Type: BLOOD SPECIMENOrdering Facility: [facility] Address: [address] Performed By: #### 1 9123-9, 51731-9 ####[facility] [id number] [place] [address] [place] Anion gap [Moles/Vol] 7 mmol/L Low 9-18 [facility] Comment on above: Order Comment: Speci men Type: BLOOD SPECIMENOrdering Facility: [facility] Address: [address] Performed By: #### 1 9123-9, 94120-5 ####[facility] [id number] [place] [address] [place] Calcium [Mass/Vol] 8.6 mg/dL Normal 8.5-10.2 [facility] Comment on above: Order Comment: Speci men Type: BLOOD SPECIMENOrdering Facility: [facility] Address: [address] [place] [address] Performed By: #### 1 9123-9, 91015-0 ####[facility] [id number] [place] [address] [place] Chloride [Moles/Vol] 106 mmol/L High 97-105 [facility] Comment on above: Order Comment: Speci men Type: BLOOD SPECIMENOrdering Facility: [facility] Address: [address] Performed By: #### 1 9123-9, 36740-2 ####[facility] [id number] [place] [address] [place] CO2 [Moles/Vol] 24 mmol/L Normal 22-30 [facility] Comment on above: Order Comment: Speci men Type: BLOOD SPECIMENOrdering Facility: [facility] Address: [address] [place] [address] Performed By: #### 1 912[address], ####[facility] [id number] [place] [address] [place] Creatinine [Mass/Vol] 0.71 mg/dL Low 0.73-1.22 [facility] Comment on above: Order Comment: Speci men Type: BLOOD SPECIMENOrdering Facility: [facility] Address: [address] [place] [address] Performed By: #### 1 [address]12[address], ####[facility] [id number] [place] [address] [place] ESTIMATED GLOMERULAR FILTRATION RATE 101 mL/min/1.73m??? Normal >=60 [facility] Comment on above: Order Comment: Speci men Type: BLOOD SPECIMENOrdering Facility: [facility] Address: [address] [place] [address] Result Comment: Ignacia mated Glomerular Filtration Rate [...] actual GFR. Performed By: #### 1 9123-9, 61677-4 ####[facility] [id number] [place] [address] [place] Glucose [Mass/Vol] 96 mg/dL Normal 74-99 [facility] Comment on above: Order Comment: Cierra cartwright Type: BLOOD SPECIMENOrdering Facility: [facility] Address: [address] [place] [place] [address] Result Comment: The [place] Diabetes Association (ADA) provides guidance for cutoff [...] Standards of Medical Care in Diabetes 2016, [place] [employer]. Diabetes Care. 2016.39(Suppl 1). Performed By: #### 1 9123-9, 31535-0 ####[facility] [id number] [place] [address] [place] Phosphate [Mass/Vol] 3.2 mg/dL Normal 2.7-4.8 [facility] Comment on above: Order Comment: Cierra cartwright Type: BLOOD SPECIMENOrdering Facility: [facility] Address: [address] [place], [place] [address] Performed By: #### 1 9123-9, 34522-8 ####[facility] [id number] [place] [address] [place] Potassium [Moles/Vol] 3.9 mmol/L Normal 3.7-5.1 [facility] Comment on above: Order Comment: Cierra cartwright Type: BLOOD SPECIMENOrdering Facility: [facility] Address: [address] Performed By: #### 1 9123-9, 52994-3 ####[facility] [id number] [place] [address] [place] Sodium [Moles/Vol] 137 mmol/L Normal 136-144 [facility] Comment on above: Order Comment: Speci men Type: BLOOD SPECIMENOrdering Facility: [facility] Address: [address] [place] [address] Performed By: #### 1 9123-9, 10386-0 ####[facility] [id number] [place] [address] [place] Urea nitrogen [Mass/Vol] 9 mg/dL Normal 9-24 [facility] Comment on above: Order Comment: Speci men Type: BLOOD SPECIMENOrdering Facility: [facility] Address: [address] [place] [address] Performed By: #### 1 9123-9, 78053-5 ####[facility] [id number] [place] [address] [place] SARS-CoV-2 RNA Resp Ql ROSSANA+p robeon 09-24-2022 SARS-CoV-2 (COVID-19) RNA ROSSANA+probe Ql (Resp) COVID 19 RESULT: Not detected The method used is RT-PCR or an equivalent NAAT method. Reference Range(the expected result in uninfected individuals): Not detected Normal [facility] Comment on above: Performed By: #### 9 4500-6 ####[facility] [id number] [place] [address] [place] THERAPY NTon 09-24-2022 THERAPY NT Normal [facility] XR ABDOMEN 1V SUPINEon 09-24 XR ABDOMEN 1V SUPINE Normal [facility] CASE MANAGEMon 09-23-2022 CASE MANAGEM Normal [facility] CONSULT PROGon 09-23-2022 CONSULT PROG Normal [facility] THERAPY NTon 09-23-2022 THERAPY NT Normal [facility] THERAPY NT Normal [facility] XR ABDOMEN 1V SUPINEon 09-23 XR ABDOMEN 1V SUPINE Normal [facility] ALLIED HEALTHon 09-22-2022 ALLIED HEALTH Normal [facility] Bacteria Bld Culton 09-23-19 23 Bacteria identified Cx Nom (Bld) CULTURE, BLOOD: No growth 5 days Normal [facility] Comment on above: Performed By: #### 6 00-7 ####[facility] [id number] [place] [address] [place] CASE MGT INIT ASSESon 2022 CASE MGT INIT ASSES Normal [facility] CBC panel Auto (Bld)on 09-22 Erythrocyte distribution width (RBC) [Ratio] 13.8 % Normal 11.5-15.0 [facility] Comment on above: Order Comment: Speci men Type: BLOOD SPECIMENOrdering Facility: [facility] Address: [address] [place] [address] Performed By: #### 5 8410-2 ####[facility] [id number] [address] [place] Hematocrit (Bld) [Volume fraction] 30.0 % Low 39.0-51.0 [facility] Comment on above: Order Comment: Speci men Type: BLOOD SPECIMENOrdering Facility: [facility] Address: [address] [place] [address] Performed By: #### 5 8410-2 ####[facility] [id number] [place] [address] [place] Hemoglobin (Bld) [Mass/Vol] 9.7 g/dL Low 13.0-17.0 [facility] Comment on above: Order Comment: Speci men Type: BLOOD SPECIMENOrdering Facility: [facility] Address: [address] [place] [address] Performed By: #### 5 8410-2 ####[facility] [id number] [place] [address] [place] MCH (RBC) [Entitic mass] 27.7 pg Normal 26.0-34.0 [facility] Comment on above: Order Comment: Speci men Type: BLOOD SPECIMENOrdering Facility: [facility] Address: [address] Performed By: #### 5 8410-2 ####[facility] [id number] [address] [place] MCHC (RBC) [Mass/Vol] 32.3 g/dL Normal 30.5-36.0 [facility] Comment on above: Order Comment: Speci men Type: BLOOD SPECIMENOrdering Facility: [facility] Address: [address] [place] [address] Performed By: #### 5 8410-2 ####[facility] [id number] [address] [place] MCV (RBC) [Entitic vol] 85.7 fL Normal 80.0-100.0 [facility] Comment on above: Order Comment: Speci men Type: BLOOD SPECIMENOrdering Facility: [facility] Address: [address] [place], [place] [address] Performed By: #### 5 8410-2 ####[facility] [id number] [address] [place] Nucleated RBC (Bld) [#/Vol] 0.02 10*3/uL High <0.01 [facility] Comment on above: Order Comment: Speci men Type: BLOOD SPECIMENOrdering Facility: [facility] Address: [address] Performed By: #### 5 8410-2 ####[facility] [id number] [address] [place] Platelet mean volume (Bld) [Entitic vol] 10.9 fL Normal 9.0-12.7 [facility] Comment on above: Order Comment: Speci men Type: BLOOD SPECIMENOrdering Facility: [facility] Address: [address] [place] [address] Performed By: #### 5 8410-2 ####[facility] [id number] [place] [address] [place] Platelets (Bld) [#/Vol] 137 10*3/uL Low 150-400 [facility] Comment on above: Order Comment: Speci men Type: BLOOD SPECIMENOrdering Facility: [facility] Address: [address] [place] [address] Result Comment: Resu lts checked and verified.No clot detected. Performed By: #### 5 8410-2 ####[facility] [id number] [place] [address] [place] RBC (Bld) [#/Vol] 3.50 10*6/uL Low 4.20-6.00 [facility] Comment on above: Order Comment: Speci men Type: BLOOD SPECIMENOrdering Facility: [facility] Address: [address] [place] [address] Performed By: #### 5 8410-2 ####[facility] [id number] [place] [address] [place] WBC (Bld) [#/Vol] 6.05 10*3/uL Normal 3.70-11.00 [facility] Comment on above: Order Comment: Speci men Type: BLOOD SPECIMENOrdering Facility: [facility] Address: [address] [place] [address] Performed By: #### 5 8410-2 ####[facility] [id number] [place] [id number] [place] CONSULTon 09-22-2022 CONSULT Normal [facility] CONSULT PROGon 09-22-2022 CONSULT PROG Normal [facility] Comprehensive metabolic 2000 panelon 09-22-2022 Albumin [Mass/Vol] 3.0 g/dL Low 3.9-4.9 [facility] Comment on above: Order Comment: Speci men Type: BLOOD SPECIMENOrdering Facility: [facility] Address: [address] [place] [address] Performed By: #### 2 571-8, 2777-1, 38843-4, 63869-7 ####[facility] [id number] [place] [address] [place] ALP [Catalytic activity/Vol] 53 U/L Normal 38-113 [facility] Comment on above: Order Comment: Speci men Type: BLOOD SPECIMENOrdering Facility: [facility] Address: [address] [place] [address] Performed By: #### 2 571-8, 2777-1, 58749-7, 03326-6 ####[facility] [id number] [place] [address] [place] ALT [Catalytic activity/Vol] 18 U/L Normal 10-54 [facility] Comment on above: Order Comment: Speci men Type: BLOOD SPECIMENOrdering Facility: [facility] Address: [address] [place] [address] Performed By: #### 2 571-8, 2777-1, 05544-4, 78151-6 ####[facility] [id number] [place] [address] [place] Anion gap [Moles/Vol] 9 mmol/L Normal 9-18 [facility] Comment on above: Order Comment: Speci men Type: BLOOD SPECIMENOrdering Facility: [facility] Address: [address] [place] [address] Performed By: #### 2 571-8, 2777-1, 56833-0, 36075-9 ####[facility] [id number] [place] [address] [place] AST [Catalytic activity/Vol] 16 U/L Normal 14-40 [facility] Comment on above: Order Comment: Speci men Type: BLOOD SPECIMENOrdering Facility: [facility] Address: [address] Performed By: #### 2 571-8, 2777-1, 95398-7, 27727-2 ####[facility] [id number] [place] [address] [place] Bilirubin [Mass/Vol] 0.9 mg/dL Normal 0.2-1.3 [facility] Comment on above: Order Comment: Speci men Type: BLOOD SPECIMENOrdering Facility: [facility] Address: [address] [place] [address] Performed By: #### 2 571-8, 277-1, , ####[facility] [id number] [place] [address] [place] Calcium [Mass/Vol] 8.9 mg/dL Normal 8.5-10.2 [facility] Comment on above: Order Comment: Speci men Type: BLOOD SPECIMENOrdering Facility: [facility] Address: [address] [place] [address] Performed By: #### 2 571-8, 277-1, , ####[facility] [id number] [place] [address] [place] Chloride [Moles/Vol] 107 mmol/L High 97-105 [facility] Comment on above: Order Comment: Speci men Type: BLOOD SPECIMENOrdering Facility: [facility] Address: [address] [place] [address] Performed By: #### 2 571-8, 277-1, , ####[facility] [id number] [place] [address] [place] CO2 [Moles/Vol] 24 mmol/L Normal 22-30 [facility] Comment on above: Order Comment: Speci men Type: BLOOD SPECIMENOrdering Facility: [facility] Address: [address] [phone] Performed By: #### 2 571-8, 2777-1, 34105-9, 75809-8 ####[facility] [id number] [place] [address] [place] Creatinine [Mass/Vol] 0.84 mg/dL Normal 0.73-1.22 [facility] Comment on above: Order Comment: Speci men Type: BLOOD SPECIMENOrdering Facility: [facility] Address: [address] [place] [address] Performed By: #### 2 571-8, 277-1, 79077-5, ####[facility] [id number] [place] [address] [place] ESTIMATED GLOMERULAR FILTRATION RATE 96 mL/min/1.73m??? Normal >=60 [facility] Comment on above: Order Comment: Speci men Type: BLOOD SPECIMENOrdering Facility: [facility] Address: [address] [place] [address] Result Comment: Ignacia mated Glomerular Filtration Rate [...] GFR. Performed By: #### 2 571-8, 2777-1, 67727-1, ####[facility] [id number] [place] [address] [place] Glucose [Mass/Vol] 121 mg/dL High 74-99 [facility] Comment on above: Order Comment: Speci men Type: BLOOD SPECIMENOrdering Facility: [facility] Address: [address] Result Comment: The [place] Diabetes Association (ADA) provides guidance for cutoff [...] Standards of Medical Care in Diabetes 2016, [place] [employer]. Diabetes Care. 2016.39(Suppl 1). Performed By: #### 2 571-8, 2777-1, 12024-5, ####[facility] [id number] [place] [address] [place] Potassium [Moles/Vol] 3.7 mmol/L Normal 3.7-5.1 [facility] Comment on above: Order Comment: Speci men Type: BLOOD SPECIMENOrdering Facility: [facility] Address: [address] [place] [phone] Performed By: #### 2 571-8, 2777-1, , ####[facility] [id number] [place] [address] [place] Protein [Mass/Vol] 6.3 g/dL Normal 6.3-8.0 [facility] Comment on above: Order Comment: Speci men Type: BLOOD SPECIMENOrdering Facility: [facility] Address: [address] [place] [address] Performed By: #### 2 571-8, 2777-1, , ####[facility] [id number] [address] [address] [place] Sodium [Moles/Vol] 140 mmol/L Normal 136-144 [facility] Comment on above: Order Comment: Speci men Type: BLOOD SPECIMENOrdering Facility: [facility] Address: [address] [place] [address] Performed By: #### 2 571-8, 2776-1, , ####[facility] [id number] [place] [address] [place] Urea nitrogen [Mass/Vol] 18 mg/dL Normal 9-24 [facility] Comment on above: Order Comment: Speci men Type: BLOOD SPECIMENOrdering Facility: [facility] Address: [address] [place] [address] Performed By: #### 2 571-8, 2776-1, , ####[facility] [id number] [place] [address] [place] Magnesium SerPl-ncon 09-22 Magnesium [Mass/Vol] 1.6 mg/dL Low 1.7-2.3 [facility] Comment on above: Order Comment: Speci men Type: BLOOD SPECIMENOrdering Facility: [facility] Address: [address] [place] [address] Performed By: #### 2 571-8, 2771, , ####[facility] [id number] [place] [address] [place] Phosphate SerPl-mCncon 09-22 Phosphate [Mass/Vol] 2.4 mg/dL Low 2.7-4.8 [facility] Comment on above: Order Comment: Speci men Type: BLOOD SPECIMENOrdering Facility: [facility] Address: [address] [place], [place] [address] Performed By: #### 2 571-8, 277-1, , ####[facility] [id number] [place] [id number] Trigl SerPl-mCncon 3 Triglyceride [Mass/Vol] 213 mg/dL High <[address] [facility] Comment on above: Order Comment: Speci men Type: BLOOD SPECIMENOrdering Facility: [facility] Address: [place] [address] Result Comment: <150 mg/dL, Normal 150-199 mg/dL, Borderline high 200-499 mg/dL, High>499 mg/dL, Very highReference:1. National Cholesterol Education Program ATP III Guideline At-A-Glance Quick Desk Reference: National Heart, Lung, and Blood [place]. National Institutes of Health. 2001: NIH Publication No. 01-3305. Performed By: #### 2 571-8, 2777-1, 09448-6, 20700-7 ####[facility] [id number] [address] Triglyceride [Mass/Vol]on FASTING TIME 8 hrs Normal [facility] Comment on above: Order Comment: Speci men Type: BLOOD SPECIMENOrdering Facility: [facility] Address: [address] [place] [address] Performed By: #### 2 571-8, 2777-1, 18131-6, ####[facility] [id number] [address] [place] XR ABDOMEN 1V SUPINEon 09-22 XR ABDOMEN 1V SUPINE Normal [facility] CBC panel Auto (Bld)on 09-21 Erythrocyte distribution width (RBC) [Ratio] 14.3 % Normal 11.5-15.0 [facility] Comment on above: Order Comment: Speci men Type: BLOOD SPECIMENOrdering Facility: [facility] Address: [address] [place] [address] Performed By: #### 5 8410-2 ####[facility] [id number] [address] STATES OF [facility] Hematocrit (Bld) [Volume fraction] 30.0 % Low 39.0-51.0 [facility] Comment on above: Order Comment: Speci men Type: BLOOD SPECIMENOrdering Facility: [facility] Address: [address] [place] [address] Performed By: #### 5 8410-2 ####[facility] [id number] [address] [place] Hemoglobin (Bld) [Mass/Vol] 9.4 g/dL Low 13.0-17.0 [facility] Comment on above: Order Comment: Speci men Type: BLOOD SPECIMENOrdering Facility: [facility] Address: [address] [place] [address] Performed By: #### 5 8410-2 ####[facility] [id number] [address] OF [facility] MCH (RBC) [Entitic mass] 27.7 pg Normal 26.0-34.0 [facility] Comment on above: Order Comment: Speci men Type: BLOOD SPECIMENOrdering Facility: [facility] Address: [address] [place] [address] Performed By: #### 5 8410-2 ####[facility] [id number] [address] [place] MCHC (RBC) [Mass/Vol] 31.3 g/dL Normal 30.5-36.0 [facility] Comment on above: Order Comment: Speci men Type: BLOOD SPECIMENOrdering Facility: [facility] Address: [address] [place] [address] Performed By: #### 5 8410-2 ####[facility] [id number] [address] [place] MCV (RBC) [Entitic vol] 88.5 fL Normal 80.0-100.[address] [facility] Comment on above: Order Comment: Speci men Type: BLOOD SPECIMENOrdering Facility: [facility] Address: [address] [place] [address] Performed By: #### 5 8410-2 ####[facility] [id number] [place] [address] [place] Nucleated RBC (Bld) [#/Vol] 10*3/uL Normal <0.01 [facility] Comment on above: Order Comment: Speci men Type: BLOOD SPECIMENOrdering Facility: [facility] Address: [address] [place] [address] Performed By: #### 5 8410-2 ####[facility] [id number] [place] [address] [place] Platelet mean volume (Bld) [Entitic vol] 11.3 fL Normal 9.0-12.7 [facility] Comment on above: Order Comment: Speci men Type: BLOOD SPECIMENOrdering Facility: [facility] Address: [address] [place] [address] Performed By: #### 5 8410-2 ####[facility] [id number] [place] [address] [place] Platelets (Bld) [#/Vol] 127 10*3/uL Low 150-400 [facility] Comment on above: Order Comment: Speci men Type: BLOOD SPECIMENOrdering Facility: [facility] Address: [address] [place] [address] Result Comment: Resu lts checked and verified.No clot detected. Performed By: #### 5 8410-2 ####[facility] [id number] [place] [address] [place] RBC (Bld) [#/Vol] 3.39 10*6/uL Low 4.20-6.00 [facility] Comment on above: Order Comment: Speci men Type: BLOOD SPECIMENOrdering Facility: [facility] Address: [address] [place] [address] [place] [address] Performed By: #### 5 8410-2 ####[facility] [id number] [place] [address] [place] WBC (Bld) [#/Vol] 17.24 10*3/uL High 3.70-11.00 [facility] Comment on above: Order Comment: Speci men Type: BLOOD SPECIMENOrdering Facility: [facility] Address: [address] [facility] [place] [place] [address] Performed By: #### 5 8410-2 ####[facility] [id number] [place] [address] [place] CONSULTon 09-21-2022 CONSULT Normal [facility] CONSULT PROGon 09-21-2022 CONSULT PROG Normal [facility] CONSULT PROG Normal [facility] Comprehensive metabolic 2000 panelon 09-21-2022 Albumin [Mass/Vol] 3.1 g/dL Low 3.9-4.9 [facility] Comment on above: Order Comment: Speci men Type: BLOOD SPECIMENOrdering Facility: [facility] Address: [place] [address] Performed By: #### 2 777-1, , ####[facility] [id number] [place] [address] [place] ALP [Catalytic activity/Vol] 56 U/L Normal 38-113 [facility] Comment on above: Order Comment: Speci men Type: BLOOD SPECIMENOrdering Facility: [facility] Address: [address] [place] [address] Performed By: #### 2 777-1, , ####[facility] [id number] [place] [id number] [place] ALT [Catalytic activity/Vol] 24 U/L Normal 10-54 [facility] Comment on above: Order Comment: Speci men Type: BLOOD SPECIMENOrdering Facility: [facility] Address: [address] Performed By: #### 2 777-1, , ####[facility] [id number] [place] [address] [place] Anion gap [Moles/Vol] 13 mmol/L Normal 9-18 [facility] Comment on above: Order Comment: Speci men Type: BLOOD SPECIMENOrdering Facility: [facility] Address: [address] [place] [address] Performed By: #### 2 777-1, , ####[facility] [id number] [place] [address] [place] AST [Catalytic activity/Vol] 28 U/L Normal 14-40 [facility] Comment on above: Order Comment: Speci men Type: BLOOD SPECIMENOrdering Facility: [facility] Address: [address] [place] [address] Performed By: #### 2 777-1, , ####[facility] [id number] [place] [address] [place] Bilirubin [Mass/Vol] 0.8 mg/dL Normal 0.2-1.3 [facility] Comment on above: Order Comment: Speci men Type: BLOOD SPECIMENOrdering Facility: [facility] Address: [address] Performed By: #### 2 777-1, , ####[facility] [id number] [place] [id number] [place] Calcium [Mass/Vol] 9.1 mg/dL Normal 8.5-10.2 [facility] Comment on above: Order Comment: Speci men Type: BLOOD SPECIMENOrdering Facility: [facility] Address: [address] [place] [address] Performed By: #### 2 777-1, , ####[facility] [id number] [place] [address] [place] Chloride [Moles/Vol] 107 mmol/L High 97-105 [facility] Comment on above: Order Comment: Speci men Type: BLOOD SPECIMENOrdering Facility: [facility] Address: [address] [place] [address] Performed By: #### 2 777-1, , ####[facility] [id number] [place] [address] [place] CO2 [Moles/Vol] 19 mmol/L Low 22-30 [facility] Comment on above: Order Comment: Speci men Type: BLOOD SPECIMENOrdering Facility: [facility] Address: [address] [place] [address] Performed By: #### 2 777-1, , ####[facility] [id number] [place] [address] [place] Creatinine [Mass/Vol] 1.13 mg/dL Normal 0.73-1.22 [facility] Comment on above: Order Comment: Speci men Type: BLOOD SPECIMENOrdering Facility: [facility] Address: [address] [place] [address] Performed By: #### 2 777-1, , ####[facility] [id number] [place] [address] [place] ESTIMATED GLOMERULAR FILTRATION RATE 71 mL/min/1.73m??? Normal >=60 [facility] Comment on above: Order Comment: Speci men Type: BLOOD SPECIMENOrdering Facility: [facility] Address: [address] [place] [address] [place] [address] Result Comment: Ignacia mated Glomerular Filtration Rate [...] GFR. Performed By: #### 2 777-1, , ####[facility] [id number] [address] [address] [place] Glucose [Mass/Vol] 106 mg/dL High 74-99 [facility] Comment on above: Order Comment: Speccarter cartwright Type: BLOOD SPECIMENOrdering Facility: [facility] Address: [address] [phone] Result Comment: The [place] Diabetes Association (ADA) provides guidance for cutoff [...] Standards of Medical Care in Diabetes 2016, [place] [employer]. Diabetes Care. 2016.39(Suppl 1). Performed By: #### 2 777-1, , ####[facility] [id number] [place] [id number] [place] Potassium [Moles/Vol] 4.3 mmol/L Normal 3.7-5.1 [facility] Comment on above: Order Comment: Speci men Type: BLOOD SPECIMENOrdering Facility: [facility] Address: [address] [place] [address] Performed By: #### 2 777-1, , ####[facility] [id number] [place] [address] [place] Protein [Mass/Vol] 6.2 g/dL Low 6.3-8.0 [facility] Comment on above: Order Comment: Speci men Type: BLOOD SPECIMENOrdering Facility: [facility] Address: [address] [place] [address] Performed By: #### 2 777-1, , ####[facility] [id number] [place] [address] [place] Sodium [Moles/Vol] 139 mmol/L Normal 136-144 [facility] Comment on above: Order Comment: Speci men Type: BLOOD SPECIMENOrdering Facility: [facility] Address: [address] [place] [address] Performed By: #### 2 777-1, , ####[facility] [id number] [place] [address] [place] Urea nitrogen [Mass/Vol] 27 mg/dL High 9-24 [facility] Comment on above: Order Comment: Speci men Type: BLOOD SPECIMENOrdering Facility: [facility] Address: [address] [place] [address] Performed By: #### 2 777-1, , ####[facility] [id number] [place] [id number] [place] HISTORY PHYSICALon HISTORY PHYSICAL Normal [facility] Magnesium SerPl-mCncon 09-21 Magnesium [Mass/Vol] 1.9 mg/dL Normal 1.7-2.3 [facility] Comment on above: Order Comment: Speci men Type: BLOOD SPECIMENOrdering Facility: [facility] Address: [address] [place] [address] [place] [address] Performed By: #### 2 777-1, , 71374-0 ####[facility] [id number] [place] [address] [place] NURSING PROGon 09-21-2022 NURSING PROG Normal [facility] Phosphate SerPl-mCncon 09-21 Phosphate [Mass/Vol] 2.9 mg/dL Normal 2.7-4.8 [facility] Comment on above: Order Comment: Speci men Type: BLOOD SPECIMENOrdering Facility: [facility] Address: [address] Performed By: #### 2 777-1, , ####[facility] [id number] [place] [address] [place] XR ABDOMEN 1V SUPINEon 09-21 XR ABDOMEN 1V SUPINE Normal [facility] ARTERIAL BLOOD GASESon 09-20 Base deficit (BldA) [Moles/Vol] -1 mmol/L Normal -2-0 [facility] Comment on above: Order Comment: Speci men Type: ARTERIAL BLOOD SPECIMENOrdering Facility: [facility] Address: [address] Performed By: #### A LLBG ####[facility] [id number] [place] [address] [place] Body temperature 98.6 [degF] Normal [facility] Comment on above: Order Comment: Speci men Type: ARTERIAL BLOOD SPECIMENOrdering Facility: [facility] Address: [address] Performed By: #### A LLBG ####[facility] [id number] [place] [address] [place] Calcium.ionized (Bld) [Mass/Vol] 1.12 mmol/L Normal 1.08-1.30 [facility] Comment on above: Order Comment: Speci men Type: ARTERIAL BLOOD SPECIMENOrdering Facility: [facility] Address: [address] [place] [address] Performed By: #### A LLBG ####[facility] [id number] [place] [address] [place] Calcium.ionized adjusted to pH 7.4 (BldA) [Moles/Vol] 1.18 mmol/L Normal 1.08-1.30 [facility] Comment on above: Order Comment: Speci men Type: ARTERIAL BLOOD SPECIMENOrdering Facility: [facility] Address: [address] [place] [address] Performed By: #### A LLBG ####[facility] [id number] [place] [address] [place] Carboxyhemoglobin (BldA) [Mass fraction] 0.6 % Normal 0.0-2.0 [facility] Comment on above: Order Comment: Speci men Type: ARTERIAL BLOOD SPECIMENOrdering Facility: [facility] Address: [address] [place] [address] Result Comment: Carb oxyhemoglobin Reference Range for Smokers: 2.0-8.0% Performed By: #### A LLBG ####[facility] [id number] [place] [address] [place] CO2 (Bld) [Partial pressure] 27 mm Hg Low 36-46 [facility] Comment on above: Order Comment: Speci men Type: ARTERIAL BLOOD SPECIMENOrdering Facility: [facility] Address: [address] [address] Performed By: #### A LLBG ####[facility] [id number] [place] [address] [place] CO2 [Moles/Vol] 22 mmol/L Normal 22-28 [facility] Comment on above: Order Comment: Speci men Type: ARTERIAL BLOOD SPECIMENOrdering Facility: [facility] Address: [address] Performed By: #### A LLBG ####[facility] [id number] [place] [address] [place] Glucose [Mass/Vol] 120 mg/dL High 60-105 [facility] Comment on above: Order Comment: Speci men Type: ARTERIAL BLOOD SPECIMENOrdering Facility: [facility] Address: [address] [place] [address] Performed By: #### A LLBG ####[facility] [id number] [place] [address] [place] HCO3 (Bld) [Moles/Vol] 21 mmol/L Low 22-26 [facility] Comment on above: Order Comment: Speci men Type: ARTERIAL BLOOD SPECIMENOrdering Facility: [facility] Address: [address] [place], [place] [id number] Performed By: #### A LLBG ####[facility] [id number] [place] [address] [place] Hematocrit (Bld) [Volume fraction] 29.5 % Low 39.0-51.0 [facility] Comment on above: Order Comment: Speci men Type: ARTERIAL BLOOD SPECIMENOrdering Facility: [facility] Address: [address] [place] [id number] Performed By: #### A LLBG ####[facility] [id number] [place] [address] [place] Hemoglobin (Bld) [Mass/Vol] 9.5 g/dL Low 13.0-17.0 [facility] Comment on above: Order Comment: Speci men Type: ARTERIAL BLOOD SPECIMENOrdering Facility: [facility] Address: [address] Performed By: #### A LLBG ####[facility] [id number] [place] [address] [place] Lactate [Moles/Vol] 1.3 mmol/L Normal 0.5-2.2 [facility] Comment on above: Order Comment: Speci men Type: ARTERIAL BLOOD SPECIMENOrdering Facility: [facility] Address: [address] [place] [address] Performed By: #### A LLBG ####[facility] [id number] [place] [address] [place] Methemoglobin (Bld) [Mass fraction] 1.4 % Normal 0.0-1.5 [facility] Comment on above: Order Comment: Speci men Type: ARTERIAL BLOOD SPECIMENOrdering Facility: [facility] Address: [address] [place] [address] Performed By: #### A LLBG ####[facility] [id number] [place] [address] [place] O2 THERAPY Ventilator Normal [facility] Comment on above: Order Comment: Speci men Type: ARTERIAL BLOOD SPECIMENOrdering Facility: [facility] Address: [address] [place] [phone] Performed By: #### A LLBG ####[facility] [id number] [place] [address] [place] Oxygen (Bld) [Partial pressure] 140 mm Hg High 85-95 [facility] Comment on above: Order Comment: Speci men Type: ARTERIAL BLOOD SPECIMENOrdering Facility: [facility] Address: [address] Performed By: #### A LLBG ####[facility] [id number] [place] [address] [place] Oxyhemoglobin (BldA) [Mass fraction] 97 % Normal 95-98 [facility] Comment on above: Order Comment: Speci men Type: ARTERIAL BLOOD SPECIMENOrdering Facility: [facility] Address: [address] [place] [address] Performed By: #### A LLBG ####[facility] [id number] [place] [address] [place] pH (Bld) 7.50 [pH] High 7.35-7.45 [facility] Comment on above: Order Comment: Speci men Type: ARTERIAL BLOOD SPECIMENOrdering Facility: [facility] Address: [address] [place] [address] Performed By: #### A LLBG ####[facility] [id number] [place] [address] [place] Potassium [Moles/Vol] 4.0 mmol/L Normal 3.5-5.0 [facility] Comment on above: Order Comment: Speci men Type: ARTERIAL BLOOD SPECIMENOrdering Facility: [facility] Address: [address] Performed By: #### A LLBG ####[facility] [id number] [place] [address] [place] Sodium [Moles/Vol] 140 mmol/L Normal 136-144 [facility] Comment on above: Order Comment: Speci men Type: ARTERIAL BLOOD SPECIMENOrdering Facility: [facility] Address: [address] [place] [address] Performed By: #### A LLBG ####[facility] [id number] [place] [address] [place] Basic metabolic 2000 panelon 09-20-2022 Anion gap [Moles/Vol] 13 mmol/L Normal 9-18 [facility] Comment on above: Order Comment: Speci men Type: BLOOD SPECIMENOrdering Facility: [facility] Address: [address] Performed By: #### 2 4321-2 ####[facility] [id number] [place] [address] [place] Calcium [Mass/Vol] 8.3 mg/dL Low 8.5-10.2 [facility] Comment on above: Order Comment: Speci men Type: BLOOD SPECIMENOrdering Facility: [facility] Address: [address] [place] [address] Performed By: #### 2 4321-2 ####[facility] [id number] [place] [address] [place] Chloride [Moles/Vol] 108 mmol/L High 97-105 [facility] Comment on above: Order Comment: Speci men Type: BLOOD SPECIMENOrdering Facility: [facility] Address: [address] [place] [address] Performed By: #### 2 4321-2 ####[facility] [id number] [place] [address] [place] CO2 [Moles/Vol] 18 mmol/L Low 22-30 [facility] Comment on above: Order Comment: Speci men Type: BLOOD SPECIMENOrdering Facility: [facility] Address: [address] [place] [address] Performed By: #### 2 4321-2 ####[facility] [id number] [place] [address] [place] Creatinine [Mass/Vol] 1.66 mg/dL High 0.73-1.22 [facility] Comment on above: Order Comment: Speci men Type: BLOOD SPECIMENOrdering Facility: [facility] Address: [address] [place] [id number] Performed By: #### 2 4321-2 ####[facility] [id number] [place] [address] [place] ESTIMATED GLOMERULAR FILTRATION RATE 45 mL/min/1.73m??? Low >=60 [facility] Comment on above: Order Comment: Speci men Type: BLOOD SPECIMENOrdering Facility: [facility] Address: [address] [id number] Result Comment: Ignacia mated Glomerular Filtration Rate [...] actual GFR. Performed By: #### 2 4321-2 ####[facility] [id number] [place] [address] [place] Glucose [Mass/Vol] 116 mg/dL High 74-99 [facility] Comment on above: Order Comment: Cierra cartwright Type: BLOOD SPECIMENOrdering Facility: [facility] Address: [address] [address] Result Comment: The [place] [employer] (ADA) provides guidance for cutoff [...] Standards of Medical Care in Diabetes 2016, [place] [employer]. Diabetes Care. 2016.39(Suppl 1). Performed By: #### 2 4321-2 ####[facility] [id number] [place] [address] [place] Potassium [Moles/Vol] 4.1 mmol/L Normal 3.7-5.1 [facility] Comment on above: Order Comment: Cierra cartwright Type: BLOOD SPECIMENOrdering Facility: [facility] Address: [address] [address] Performed By: #### 2 4321-2 ####[facility] [id number] [place] [address] [place] Sodium [Moles/Vol] 139 mmol/L Normal 136-144 [facility] Comment on above: Order Comment: Speci men Type: BLOOD SPECIMENOrdering Facility: [facility] Address: [address] [place] [address] Performed By: #### 2 4321-2 ####[facility] [id number] [place] [address] [place] Urea nitrogen [Mass/Vol] 27 mg/dL High 9-24 [facility] Comment on above: Order Comment: Speci men Type: BLOOD SPECIMENOrdering Facility: [facility] Address: [address] [place] [address] Performed By: #### 2 4321-2 ####[facility] [id number] [place] [address] [place] CBC panel Auto (Bld)on 09-20 Erythrocyte distribution width (RBC) [Ratio] 14.2 % Normal 11.5-15.0 [facility] Comment on above: Order Comment: Speci men Type: BLOOD SPECIMENOrdering Facility: [facility] Address: [address] [place] [address] Performed By: #### 5 8410-2 ####[facility] [id number] [place] [address] [place] Hematocrit (Bld) [Volume fraction] 27.6 % Low 39.0-51.0 [facility] Comment on above: Order Comment: Speci men Type: BLOOD SPECIMENOrdering Facility: [facility] Address: [address] [place] [address] Performed By: #### 5 8410-2 ####[facility] [id number] [place] [address] [place] Hemoglobin (Bld) [Mass/Vol] 9.1 g/dL Low 13.0-17.0 [facility] Comment on above: Order Comment: Speci men Type: BLOOD SPECIMENOrdering Facility: [facility] Address: [address] [place] [id number] Performed By: #### 5 8410-2 ####[facility] [id number] [address] [place] MCH (RBC) [Entitic mass] 27.8 pg Normal 26.0-34.0 [facility] Comment on above: Order Comment: Speci men Type: BLOOD SPECIMENOrdering Facility: [facility] Address: [address] [place] [id number] Performed By: #### 5 8410-2 ####[facility] [id number] [address] [place] MCHC (RBC) [Mass/Vol] 33.0 g/dL Normal 30.5-36.0 [facility] Comment on above: Order Comment: Speci men Type: BLOOD SPECIMENOrdering Facility: [facility] Address: [address] [place] [id number] Performed By: #### 5 8410-2 ####[facility] [id number] [place] [address] [place] MCV (RBC) [Entitic vol] 84.4 fL Normal 80.0-100.0 [facility] Comment on above: Order Comment: Speci men Type: BLOOD SPECIMENOrdering Facility: [facility] Address: [address] [place] [id number] Performed By: #### 5 8410-2 ####[facility] [id number] [address] [place] Nucleated RBC (Bld) [#/Vol] 10*3/uL Normal <0.01 [facility] Comment on above: Order Comment: Speci men Type: BLOOD SPECIMENOrdering Facility: [facility] Address: [address] [place] [address] Performed By: #### 5 8410-2 ####[facility] [id number] [place] [address] [place] Platelet mean volume (Bld) [Entitic vol] 11.4 fL Normal 9.0-12.7 [facility] Comment on above: Order Comment: Speci men Type: BLOOD SPECIMENOrdering Facility: [facility] Address: [address] [place] [address] Performed By: #### 5 8410-2 ####[facility] [id number] [place] [address] [place] Platelets (Bld) [#/Vol] 121 10*3/uL Low 150-400 [facility] Comment on above: Order Comment: Speci men Type: BLOOD SPECIMENOrdering Facility: [facility] Address: [address] [place] [address] Result Comment: Resu lts checked and verified.No clot detected. Performed By: #### 5 8410-2 ####[facility] [id number] [place] [address] [place] RBC (Bld) [#/Vol] 3.27 10*6/uL Low 4.20-6.00 [facility] Comment on above: Order Comment: Speci men Type: BLOOD SPECIMENOrdering Facility: [facility] Address: [address] [place] [address] Performed By: #### 5 8410-2 ####[facility] [id number] [place] [address] [place] WBC (Bld) [#/Vol] 19.14 10*3/uL High 3.70-11.00 [facility] Comment on above: Order Comment: Speci men Type: BLOOD SPECIMENOrdering Facility: [facility] Address: [address] [place] [id number] Performed By: #### 5 8410-2 ####[facility] [id number] [place] [address] [place] CONSULT PROGon 09-20-2022 CONSULT PROG Normal [facility] CONSULT PROG Normal [facility] CONSULT PROG Normal [facility] NUTRITIONon 09-20-2022 NUTRITION Normal [facility] ARTERIAL BLOOD GASESon 09-19 Base deficit (BldA) [Moles/Vol] -2 mmol/L Normal -2-0 [facility] Comment on above: Order Comment: Speci men Type: ARTERIAL BLOOD SPECIMENOrdering Facility: [facility] Address: [address] [place] [address] Performed By: #### A LLBG ####[facility] [id number] [place] [address] [place] Body temperature 98.78 [degF] Normal [facility] Comment on above: Order Comment: Speci men Type: ARTERIAL BLOOD SPECIMENOrdering Facility: [facility] Address: [address] [place] [address] Performed By: #### A LLBG ####[facility] [id number] [address] [place] Calcium.ionized (Bld) [Mass/Vol] 1.11 mmol/L Normal 1.08-1.30 [facility] Comment on above: Order Comment: Speci men Type: ARTERIAL BLOOD SPECIMENOrdering Facility: [facility] Address: [address] [place] [phone] Performed By: #### A LLBG ####[facility] [id number] [place] [address] [place] Calcium.ionized adjusted to pH 7.4 (BldA) [Moles/Vol] 1.15 mmol/L Normal 1.08-1.30 [facility] Comment on above: Order Comment: Speci men Type: ARTERIAL BLOOD SPECIMENOrdering Facility: [facility] Address: [address] [address] Performed By: #### A LLBG ####[facility] [id number] [place] [address] [place] Carboxyhemoglobin (BldA) [Mass fraction] 1.3 % Normal 0.0-2.0 [facility] Comment on above: Order Comment: Speci men Type: ARTERIAL BLOOD SPECIMENOrdering Facility: [facility] Address: [address] Result Comment: Carb oxyhemoglobin Reference Range for Smokers: 2.0-8.0% Performed By: #### A LLBG ####[facility] [id number] [place] [address] [place] CO2 (Bld) [Partial pressure] 28 mm Hg Low 36-46 [facility] Comment on above: Order Comment: Speci men Type: ARTERIAL BLOOD SPECIMENOrdering Facility: [facility] Address: [address] [address] Performed By: #### A LLBG ####[facility] [id number] [place] [address] [place] CO2 [Moles/Vol] 21 mmol/L Low 22-28 [facility] Comment on above: Order Comment: Speci men Type: ARTERIAL BLOOD SPECIMENOrdering Facility: [facility] Address: [address] Performed By: #### A LLBG ####[facility] [id number] [place] [address] [place] CO2 adjusted to patient's actual temperature (Bld) [Partial pressure] 28 mmHg Low 36-46 [facility] Comment on above: Order Comment: Speci men Type: ARTERIAL BLOOD SPECIMENOrdering Facility: [facility] Address: [address] Performed By: #### A LLBG ####[facility] [id number] [place] [address] [place] FIO2 30 % Normal [facility] Comment on above: Order Comment: Speci men Type: ARTERIAL BLOOD SPECIMENOrdering Facility: [facility] Address: [address] [place] [address] Performed By: #### A LLBG ####[facility] [id number] [place] [address] [place] Glucose [Mass/Vol] 154 mg/dL High 60-105 [facility] Comment on above: Order Comment: Speci men Type: ARTERIAL BLOOD SPECIMENOrdering Facility: [facility] Address: [address] [place] [id number] Performed By: #### A LLBG ####[facility] [id number] [place] [address] [place] HCO3 (Bld) [Moles/Vol] 20 mmol/L Low 22-26 [facility] Comment on above: Order Comment: Speci men Type: ARTERIAL BLOOD SPECIMENOrdering Facility: [facility] Address: [address] [place] [id number] Performed By: #### A LLBG ####[facility] [id number] [place] [address] [place] Hematocrit (Bld) [Volume fraction] 29.0 % Low 39.0-51.0 [facility] Comment on above: Order Comment: Speci men Type: ARTERIAL BLOOD SPECIMENOrdering Facility: [facility] Address: [address] [place] [id number] Performed By: #### A LLBG ####[facility] [id number] [place] [address] [place] Hemoglobin (Bld) [Mass/Vol] 9.4 g/dL Low 13.0-17.0 [facility] Comment on above: Order Comment: Speci men Type: ARTERIAL BLOOD SPECIMENOrdering Facility: [facility] Address: [address] Performed By: #### A LLBG ####[facility] [id number] [place] [address] [place] Lactate [Moles/Vol] 1.7 mmol/L Normal 0.5-2.2 [facility] Comment on above: Order Comment: Speci men Type: ARTERIAL BLOOD SPECIMENOrdering Facility: [facility] Address: [address] Performed By: #### A LLBG ####[facility] [id number] [place] [address] [place] Methemoglobin (Bld) [Mass fraction] 1.2 % Normal 0.0-1.5 [facility] Comment on above: Order Comment: Speci men Type: ARTERIAL BLOOD SPECIMENOrdering Facility: [facility] Address: [address] Performed By: #### A LLBG ####[facility] [id number] [place] [address] [place] O2 THERAPY Ventilator Normal [facility] Comment on above: Order Comment: Speci men Type: ARTERIAL BLOOD SPECIMENOrdering Facility: [facility] Address: [address] Performed By: #### A LLBG ####[facility] [id number] [place] [address] [place] Oxygen (Bld) [Partial pressure] 133 mm Hg High 85-95 [facility] Comment on above: Order Comment: Speci men Type: ARTERIAL BLOOD SPECIMENOrdering Facility: [facility] Address: [address] Performed By: #### A LLBG ####[facility] [id number] [place] [address] [place] Oxygen adjusted to patient's actual temperature (Bld) [Partial pressure] 133 mmHg High 85-95 [facility] Comment on above: Order Comment: Speci men Type: ARTERIAL BLOOD SPECIMENOrdering Facility: [facility] Address: [address] [place] [address] Performed By: #### A LLBG ####[facility] [id number] [place] [address] [place] Oxyhemoglobin (BldA) [Mass fraction] 97 % Normal 95-98 [facility] Comment on above: Order Comment: Speci men Type: ARTERIAL BLOOD SPECIMENOrdering Facility: [facility] Address: [address] [place] [address] Performed By: #### A LLBG ####[facility] [id number] [place] [address] [place] pH (Bld) 7.47 [pH] High 7.35-7.45 [facility] Comment on above: Order Comment: Speci men Type: ARTERIAL BLOOD SPECIMENOrdering Facility: [facility] Address: [address] [place] [phone] Performed By: #### A LLBG ####[facility] [id number] [place] [address] [place] pH adjusted to patient's actual temperature (Bld) 7.47 High 7.35-7.45 [facility] Comment on above: Order Comment: Speci men Type: ARTERIAL BLOOD SPECIMENOrdering Facility: [facility] Address: [address] [place] [phone] Performed By: #### A LLBG ####[facility] [id number] [place] [address] [place] Potassium [Moles/Vol] 4.3 mmol/L Normal 3.5-5.0 [facility] Comment on above: Order Comment: Speci men Type: ARTERIAL BLOOD SPECIMENOrdering Facility: [facility] Address: [address] Performed By: #### A LLBG ####[facility] [id number] [place] [address] [place] Sodium [Moles/Vol] 139 mmol/L Normal 136-144 [facility] Comment on above: Order Comment: Speci men Type: ARTERIAL BLOOD SPECIMENOrdering Facility: [facility] Address: [address] Performed By: #### A LLBG ####[facility] [id number] [place] [address] [place] Base deficit (BldA) [Moles/Vol] -4 mmol/L Low -2-0 [facility] Comment on above: Order Comment: Speci men Type: ARTERIAL BLOOD SPECIMENOrdering Facility: [facility] Address: [address] Performed By: #### A LLBG ####[facility] [id number] [place] [address] [place] Body temperature 102.74 [degF] Normal [facility] Comment on above: Order Comment: Speci men Type: ARTERIAL BLOOD SPECIMENOrdering Facility: [facility] Address: [address] Performed By: #### A LLBG ####[facility] [id number] [place] [address] [place] Calcium.ionized (Bld) [Mass/Vol] 1.09 mmol/L Normal 1.08-1.30 [facility] Comment on above: Order Comment: Speci men Type: ARTERIAL BLOOD SPECIMENOrdering Facility: [facility] Address: [address] Performed By: #### A LLBG ####[facility] [id number] [place] [address] [place] Calcium.ionized adjusted to pH 7.4 (BldA) [Moles/Vol] 1.10 mmol/L Normal 1.08-1.30 [facility] Comment on above: Order Comment: Speci men Type: ARTERIAL BLOOD SPECIMENOrdering Facility: [facility] Address: [address] [place] [phone] Performed By: #### A LLBG ####[facility] [id number] [place] [address] [place] Carboxyhemoglobin (BldA) [Mass fraction] 0.6 % Normal 0.0-2.0 [facility] Comment on above: Order Comment: Speci men Type: ARTERIAL BLOOD SPECIMENOrdering Facility: [facility] Address: [address] [place] [phone] Result Comment: Carb oxyhemoglobin Reference Range for Smokers: 2.0-8.0% Performed By: #### A LLBG ####[facility] [id number] [place] [address] [place] CO2 (Bld) [Partial pressure] 31 mm Hg Low 36-46 [facility] Comment on above: Order Comment: Speci men Type: ARTERIAL BLOOD SPECIMENOrdering Facility: [facility] Address: [address] Performed By: #### A LLBG ####[facility] [id number] [place] [address] [place] CO2 [Moles/Vol] 21 mmol/L Low 22-28 [facility] Comment on above: Order Comment: Speci men Type: ARTERIAL BLOOD SPECIMENOrdering Facility: [facility] Address: [address] Performed By: #### A LLBG ####[facility] [id number] [place] [address] [place] CO2 adjusted to patient's actual temperature (Bld) [Partial pressure] 34 mmHg Low 36-46 [facility] Comment on above: Order Comment: Speci men Type: ARTERIAL BLOOD SPECIMENOrdering Facility: [facility] Address: [address] Performed By: #### A LLBG ####[facility] [id number] [place] [address] [place] FIO2 30 % Normal [facility] Comment on above: Order Comment: Speci men Type: ARTERIAL BLOOD SPECIMENOrdering Facility: [facility] Address: [address] Performed By: #### A LLBG ####[facility] [id number] [address] [place] Glucose [Mass/Vol] 128 mg/dL High 60-105 [facility] [facility] Comment on above: Order Comment: Speci men Type: ARTERIAL BLOOD SPECIMENOrdering Facility: [facility] Address: [address] Performed By: #### A LLBG ####[facility] [id number] [address] [place] HCO3 (Bld) [Moles/Vol] 20 mmol/L Low 22-26 Cl [facility] Comment on above: Order Comment: Speci men Type: ARTERIAL BLOOD SPECIMENOrdering Facility: [facility] Address: [address] Performed By: #### A LLBG ####[facility] [id number] [address] [place] Hematocrit (Bld) [Volume fraction] 30.6 % Low 39.0-51.0 [facility] Comment on above: Order Comment: Speci men Type: ARTERIAL BLOOD SPECIMENOrdering Facility: [facility] Address: [address] Performed By: #### A LLBG ####[facility] [id number] [place] [address] [place] Hemoglobin (Bld) [Mass/Vol] 9.9 g/dL Low 13.0-17.0 [facility] Comment on above: Order Comment: Speci men Type: ARTERIAL BLOOD SPECIMENOrdering Facility: [facility] Address: [address] Performed By: #### A LLBG ####[facility] [id number] [place] [address] [place] Lactate [Moles/Vol] 2.8 mmol/L High 0.5-2.2 [facility] Comment on above: Order Comment: Speci men Type: ARTERIAL BLOOD SPECIMENOrdering Facility: [facility] Address: [address] [place], [place] [id number] Performed By: #### A LLBG ####[facility] [id number] [address] [place] Methemoglobin (Bld) [Mass fraction] 1.3 % Normal 0.0-1.5 [facility] Comment on above: Order Comment: Speci men Type: ARTERIAL BLOOD SPECIMENOrdering Facility: [facility] Address: [address] Performed By: #### A LLBG ####[facility] [id number] [place] [address] [place] MINUTE VENTILATION 9 L/min Normal [facility] Comment on above: Order Comment: Speci men Type: ARTERIAL BLOOD SPECIMENOrdering Facility: [facility] Address: [address] [place] [address] Performed By: #### A LLBG ####[facility] [id number] [place] [address] [place] O2 THERAPY Ventilator Normal [facility] Comment on above: Order Comment: Speci men Type: ARTERIAL BLOOD SPECIMENOrdering Facility: [facility] Address: [address] [place] [address] Performed By: #### A LLBG ####[facility] [id number] [place] [address] [place] Oxygen (Bld) [Partial pressure] 131 mm Hg High 85-95 [facility] Comment on above: Order Comment: Speci men Type: ARTERIAL BLOOD SPECIMENOrdering Facility: [facility] Address: [address] Performed By: #### A LLBG ####[facility] [id number] [place] [address] [place] Oxygen adjusted to patient's actual temperature (Bld) [Partial pressure] 144 mmHg High 85-95 [facility] Comment on above: Order Comment: Speci men Type: ARTERIAL BLOOD SPECIMENOrdering Facility: [facility] Address: [address] Performed By: #### A LLBG ####[facility] [id number] [place] [address] [place] Oxyhemoglobin (BldA) [Mass fraction] 97 % Normal 95-98 [facility] Comment on above: Order Comment: Speci men Type: ARTERIAL BLOOD SPECIMENOrdering Facility: [facility] Address: [address] [place] [address] Performed By: #### A LLBG ####[facility] [id number] [place] [address] [place] PEEP/CPAP 5 cmH2O Normal [facility] Comment on above: Order Comment: Speci men Type: ARTERIAL BLOOD SPECIMENOrdering Facility: [facility] Address: [address] [place] [address] Performed By: #### A LLBG ####[facility] [id number] [place] [address] [place] pH (Bld) 7.42 [pH] Normal 7.35-7.45 [facility] Comment on above: Order Comment: Speci men Type: ARTERIAL BLOOD SPECIMENOrdering Facility: [facility] Address: [address] [place] [address] Performed By: #### A LLBG ####[facility] [id number] [place] [address] [place] pH adjusted to patient's actual temperature (Bld) 7.39 Normal 7.35-7.45 [facility] Comment on above: Order Comment: Speci men Type: ARTERIAL BLOOD SPECIMENOrdering Facility: [facility] Address: [address] [place] [address] Performed By: #### A LLBG ####[facility] [id number] [place] [address] [place] Potassium [Moles/Vol] 4.1 mmol/L Normal 3.5-5.0 [facility] Comment on above: Order Comment: Speci men Type: ARTERIAL BLOOD SPECIMENOrdering Facility: [facility] Address: [address] [place] [address] Performed By: #### A LLBG ####[facility] [id number] [place] [address] [place] Sodium [Moles/Vol] 141 mmol/L Normal 136-144 [facility] Comment on above: Order Comment: Speci men Type: ARTERIAL BLOOD SPECIMENOrdering Facility: [facility] Address: [address] [place] [id number] Performed By: #### A LLBG ####[facility] [id number] [place] [address] [place] Base deficit (BldA) [Moles/Vol] -4 mmol/L Low -2-0 [facility] Comment on above: Order Comment: Speci men Type: ARTERIAL BLOOD SPECIMENOrdering Facility: [facility] Address: [address] [place] [address] Performed By: #### A LLBG ####[facility] [id number] [place] [address] [place] Body temperature 98.6 [degF] Normal [facility] Comment on above: Order Comment: Speci men Type: ARTERIAL BLOOD SPECIMENOrdering Facility: [facility] Address: [address] [place] [address] Performed By: #### A LLBG ####[facility] [id number] [place] [address] [place] Calcium.ionized (Bld) [Mass/Vol] 1.12 mmol/L Normal 1.08-1.30 [facility] Comment on above: Order Comment: Speci men Type: ARTERIAL BLOOD SPECIMENOrdering Facility: [facility] Address: [address] [place] [address] Performed By: #### A LLBG ####[facility] [id number] [place] [address] [place] Calcium.ionized adjusted to pH 7.4 (BldA) [Moles/Vol] 1.14 mmol/L Normal 1.08-1.30 [facility] Comment on above: Order Comment: Speci men Type: ARTERIAL BLOOD SPECIMENOrdering Facility: [facility] Address: [address] Performed By: #### A LLBG ####[facility] [id number] [place] [address] [place] Carboxyhemoglobin (BldA) [Mass fraction] 0.8 % Normal 0.0-2.0 [facility] Comment on above: Order Comment: Speci men Type: ARTERIAL BLOOD SPECIMENOrdering Facility: [facility] Address: [address] [place] [id number] Result Comment: Carb oxyhemoglobin Reference Range for Smokers: 2.0-8.0% Performed By: #### A LLBG ####[facility] [id number] [place] [address] [place] CO2 (Bld) [Partial pressure] 27 mm Hg Low 36-46 [facility] Comment on above: Order Comment: Speci men Type: ARTERIAL BLOOD SPECIMENOrdering Facility: [facility] Address: [address] [place] [address] Performed By: #### A LLBG ####[facility] [id number] [place] [address] [place] CO2 [Moles/Vol] 19 mmol/L Low 22-28 [facility] Comment on above: Order Comment: Speci men Type: ARTERIAL BLOOD SPECIMENOrdering Facility: [facility] Address: [address] [place] [address] Performed By: #### A LLBG ####[facility] [id number] [place] [address] [place] Glucose [Mass/Vol] 97 mg/dL Normal 60-105 [facility] Comment on above: Order Comment: Speci men Type: ARTERIAL BLOOD SPECIMENOrdering Facility: [facility] Address: [address] [place] [address] Performed By: #### A LLBG ####[facility] [id number] [place] [address] [place] HCO3 (Bld) [Moles/Vol] 18 mmol/L Low 22-26 [facility] Comment on above: Order Comment: Speci men Type: ARTERIAL BLOOD SPECIMENOrdering Facility: [facility] Address: [address] [place] [address] Performed By: #### A LLBG ####[facility] [id number] [place] [address] [place] Hematocrit (Bld) [Volume fraction] 31.8 % Low 39.0-51.0 [facility] Comment on above: Order Comment: Speci men Type: ARTERIAL BLOOD SPECIMENOrdering Facility: [facility] Address: [address] [place] [address] Performed By: #### A LLBG ####[facility] [id number] [place] [address] [place] Hemoglobin (Bld) [Mass/Vol] 10.3 g/dL Low 13.0-17.0 [facility] Comment on above: Order Comment: Speci men Type: ARTERIAL BLOOD SPECIMENOrdering Facility: [facility] Address: [address] [place] [address] Performed By: #### A LLBG ####[facility] [id number] [place] [address] [place] Lactate [Moles/Vol] 3.8 mmol/L High 0.5-2.2 [facility] Comment on above: Order Comment: Speci men Type: ARTERIAL BLOOD SPECIMENOrdering Facility: [facility] Address: [address] [place] [address] Performed By: #### A LLBG ####[facility] [id number] [place] [address] [place] LITERS 2 Liters/min Normal [facility] Comment on above: Order Comment: Speci men Type: ARTERIAL BLOOD SPECIMENOrdering Facility: [facility] Address: [address] [place] [id number] Performed By: #### A LLBG ####[facility] [id number] [place] [address] [place] Methemoglobin (Bld) [Mass fraction] 1.1 % Normal 0.0-1.5 [facility] Comment on above: Order Comment: Speci men Type: ARTERIAL BLOOD SPECIMENOrdering Facility: [facility] Address: [address] [place] [id number] Performed By: #### A LLBG ####[facility] [id number] [address] [place] O2 THERAPY NC = Nasal Cannula Normal [facility] Comment on above: Order Comment: Speci men Type: ARTERIAL BLOOD SPECIMENOrdering Facility: [facility] Address: [address] Performed By: #### A LLBG ####[facility] [id number] [address] [place] Oxygen (Bld) [Partial pressure] 144 mm Hg High 85-95 [facility] Comment on above: Order Comment: Speci men Type: ARTERIAL BLOOD SPECIMENOrdering Facility: [facility] Address: [address] Performed By: #### A LLBG ####[facility] [id number] [place] [address] [place] Oxyhemoglobin (BldA) [Mass fraction] 97 % Normal 95-98 [facility] Comment on above: Order Comment: Speci men Type: ARTERIAL BLOOD SPECIMENOrdering Facility: [facility] Address: [address] Performed By: #### A LLBG ####[facility] [id number] [place] [address] [place] pH (Bld) 7.44 [pH] Normal 7.35-7.45 [facility] Comment on above: Order Comment: Speci men Type: ARTERIAL BLOOD SPECIMENOrdering Facility: [facility] Address: [address] Performed By: #### A LLBG ####[facility] [id number] [place] [address] [place] Potassium [Moles/Vol] 3.7 mmol/L Normal 3.5-5.0 [facility] Comment on above: Order Comment: Speci men Type: ARTERIAL BLOOD SPECIMENOrdering Facility: [facility] Address: [address] [place] [id number] Performed By: #### A LLBG ####[facility] [id number] [place] [address] [place] Sodium [Moles/Vol] 141 mmol/L Normal 136-144 [facility] Comment on above: Order Comment: Speci men Type: ARTERIAL BLOOD SPECIMENOrdering Facility: [facility] Address: [address] [place] [address] Performed By: #### A LLBG ####[facility] [id number] [place] [address] [place] Base deficit (BldA) [Moles/Vol] -4 mmol/L Low -2-0 [facility] Comment on above: Order Comment: Speci men Type: ARTERIAL BLOOD SPECIMENOrdering Facility: [facility] Address: [address] Performed By: #### A LLBG ####[facility] [id number] [place] [address] [place] Body temperature 98.6 [degF] Normal [facility] Comment on above: Order Comment: Speci men Type: ARTERIAL BLOOD SPECIMENOrdering Facility: [facility] Address: [address] Performed By: #### A LLBG ####[facility] [id number] [place] [address] [place] Calcium.ionized (Bld) [Mass/Vol] 1.06 mmol/L Low 1.08-1.30 [facility] Comment on above: Order Comment: Speci men Type: ARTERIAL BLOOD SPECIMENOrdering Facility: [facility] Address: [address] Performed By: #### A LLBG ####[facility] [id number] [place] [address] [place] Calcium.ionized adjusted to pH 7.4 (BldA) [Moles/Vol] 1.10 mmol/L Normal 1.08-1.30 [facility] Comment on above: Order Comment: Speci men Type: ARTERIAL BLOOD SPECIMENOrdering Facility: [facility] Address: [address] [place] [id number] Performed By: #### A LLBG ####[facility] [id number] [place] [address] [place] Carboxyhemoglobin (BldA) [Mass fraction] 1.2 % Normal 0.0-2.0 [facility] Comment on above: Order Comment: Speci men Type: ARTERIAL BLOOD SPECIMENOrdering Facility: [facility] Address: [address] [place] [id number] Result Comment: Carb oxyhemoglobin Reference Range for Smokers: 2.0-8.0% Performed By: #### A LLBG ####[facility] [id number] [place] [address] [place] CO2 (Bld) [Partial pressure] 25 mm Hg Low 36-46 [facility] Comment on above: Order Comment: Speci men Type: ARTERIAL BLOOD SPECIMENOrdering Facility: [facility] Address: [address] [place] [phone] Performed By: #### A LLBG ####[facility] [id number] [place] [address] [place] CO2 [Moles/Vol] 19 mmol/L Low 22-28 [facility] Comment on above: Order Comment: Speci men Type: ARTERIAL BLOOD SPECIMENOrdering Facility: [facility] Address: [address] [place] [phone] Performed By: #### A LLBG ####[facility] [id number] [place] [address] [place] Glucose [Mass/Vol] 96 mg/dL Normal 60-105 [facility] Comment on above: Order Comment: Speci men Type: ARTERIAL BLOOD SPECIMENOrdering Facility: [facility] Address: [address] [place] [address] Performed By: #### A LLBG ####[facility] [id number] [place] [address] [place] HCO3 (Bld) [Moles/Vol] 18 mmol/L Low 22-26 [facility] Comment on above: Order Comment: Speci men Type: ARTERIAL BLOOD SPECIMENOrdering Facility: [facility] Address: [address] [place] [address] Performed By: #### A LLBG ####[facility] [id number] [place] [address] [place] Hematocrit (Bld) [Volume fraction] 35.0 % Low 39.0-51.0 [facility] Comment on above: Order Comment: Speci men Type: ARTERIAL BLOOD SPECIMENOrdering Facility: [facility] Address: [address] [place] [phone] Performed By: #### A LLBG ####[facility] [id number] [place] [address] [place] Hemoglobin (Bld) [Mass/Vol] 11.4 g/dL Low 13.0-17.0 [facility] Comment on above: Order Comment: Speci men Type: ARTERIAL BLOOD SPECIMENOrdering Facility: [facility] Address: [address] [place] [phone] Performed By: #### A LLBG ####[facility] [id number] [place] [address] [place] Lactate [Moles/Vol] 6.2 mmol/L High 0.5-2.2 [facility] Comment on above: Order Comment: Speci men Type: ARTERIAL BLOOD SPECIMENOrdering Facility: [facility] Address: [address] Performed By: #### A LLBG ####[facility] [id number] [place] [address] [place] LITERS 4 Liters/min Normal [facility] Comment on above: Order Comment: Speci men Type: ARTERIAL BLOOD SPECIMENOrdering Facility: [facility] Address: [address] Performed By: #### A LLBG ####[facility] [id number] [place] [address] [place] Methemoglobin (Bld) [Mass fraction] 1.4 % Normal 0.0-1.5 [facility] Comment on above: Order Comment: Speci men Type: ARTERIAL BLOOD SPECIMENOrdering Facility: [facility] Address: [address] Performed By: #### A LLBG ####[facility] [id number] [place] [address] [place] O2 THERAPY NC = Nasal Cannula Normal [facility] Comment on above: Order Comment: Speci men Type: ARTERIAL BLOOD SPECIMENOrdering Facility: [facility] Address: [address] Performed By: #### A LLBG ####[facility] [id number] [place] [address] [place] Oxygen (Bld) [Partial pressure] 76 mm Hg Low 85-95 [facility] Comment on above: Order Comment: Speci men Type: ARTERIAL BLOOD SPECIMENOrdering Facility: [facility] Address: [address] Performed By: #### A LLBG ####[facility] [id number] [place] [address] [place] Oxyhemoglobin (BldA) [Mass fraction] 94 % Low 95-98 [facility] Comment on above: Order Comment: Speci men Type: ARTERIAL BLOOD SPECIMENOrdering Facility: [facility] Address: [address] [place] [id number] Performed By: #### A LLBG ####[facility] [id number] [place] [address] [place] pH (Bld) 7.47 [pH] High 7.35-7.45 [facility] Comment on above: Order Comment: Speci men Type: ARTERIAL BLOOD SPECIMENOrdering Facility: [facility] Address: [address] [place] [address] Performed By: #### A LLBG ####[facility] [id number] [place] [address] [place] Potassium [Moles/Vol] 3.9 mmol/L Normal 3.5-5.0 [facility] Comment on above: Order Comment: Speci men Type: ARTERIAL BLOOD SPECIMENOrdering Facility: [facility] Address: [address] [place], [place] [address] Performed By: #### A LLBG ####[facility] [id number] [place] [address] [place] Sodium [Moles/Vol] 142 mmol/L Normal 136-144 [facility] Comment on above: Order Comment: Speci men Type: ARTERIAL BLOOD SPECIMENOrdering Facility: [facility] Address: [address] [place] [address] Performed By: #### A LLBG ####[facility] [id number] [place] [address] [place] BRIEF OP NOTon 09-19-2022 BRIEF OP NOT Normal [facility] Bacteria Bld Culton 09-20-19 23 Bacteria identified Cx Nom (Bld) CULTURE, BLOOD: No growth 5 days Normal [facility] Comment on above: Performed By: #### 6 00-7 ####[facility] [id number] [address] OF [facility] Bacteria Ur Culton Bacteria identified Cx Nom (U) Abnormal [facility] Comment on above: Performed By: #### 6 30-4 ####[facility] [id number] [address] OF [facility] CBC panel Auto (Bld)on 09-19 Erythrocyte distribution width (RBC) [Ratio] 14.5 % Normal 11.5-15.0 [facility] Comment on above: Order Comment: Speci men Type: BLOOD SPECIMENOrdering Facility: [facility] Address: [address] [place] [address] Performed By: #### 5 8410-2 ####[facility] [id number] [address] STATES OF [facility] Hematocrit (Bld) [Volume fraction] 36.1 % Low 39.0-51.0 [facility] Comment on above: Order Comment: Speci men Type: BLOOD SPECIMENOrdering Facility: [facility] Address: [address] [place] [address] Performed By: #### 5 8410-2 ####[facility] [id number] [address] [place] Hemoglobin (Bld) [Mass/Vol] 11.3 g/dL Low 13.0-17.0 [facility] Comment on above: Order Comment: Speci men Type: BLOOD SPECIMENOrdering Facility: [facility] Address: [address] [place] [address] Performed By: #### 5 8410-2 ####[facility] [id number] [place] [address] [place] MCH (RBC) [Entitic mass] 27.8 pg Normal 26.0-34.0 [facility] Comment on above: Order Comment: Speci men Type: BLOOD SPECIMENOrdering Facility: [facility] Address: [address] Performed By: #### 5 8410-2 ####[facility] [id number] [place] [address] [place] MCHC (RBC) [Mass/Vol] 31.3 g/dL Normal 30.5-36.0 [facility] Comment on above: Order Comment: Speci men Type: BLOOD SPECIMENOrdering Facility: [facility] Address: [address] Performed By: #### 5 8410-2 ####[facility] [id number] [place] [address] [place] MCV (RBC) [Entitic vol] 88.9 fL Normal 80.0-100.0 [facility] Comment on above: Order Comment: Speci men Type: BLOOD SPECIMENOrdering Facility: [facility] Address: [address] [place] [address] Performed By: #### 5 8410-2 ####[facility] [id number] [place] [address] [place] Nucleated RBC (Bld) [#/Vol] 10*3/uL Normal <0.01 [facility] Comment on above: Order Comment: Speci men Type: BLOOD SPECIMENOrdering Facility: [facility] Address: [address] Performed By: #### 5 8410-2 ####[facility] [id number] [place] [address] [place] Platelet mean volume (Bld) [Entitic vol] 10.0 fL Normal 9.0-12.7 [facility] Comment on above: Order Comment: Speci men Type: BLOOD SPECIMENOrdering Facility: [facility] Address: [address] [place], [place] [address] Performed By: #### 5 8410-2 ####[facility] [id number] [place] [address] [place] Platelets (Bld) [#/Vol] 164 10*3/uL Normal 150-400 [facility] Comment on above: Order Comment: Speci men Type: BLOOD SPECIMENOrdering Facility: [facility] Address: [address] [place] [address] Performed By: #### 5 8410-2 ####[facility] [id number] [address] OF [facility] RBC (Bld) [#/Vol] 4.06 10*6/uL Low 4.20-6.00 [facility] Comment on above: Order Comment: Speci men Type: BLOOD SPECIMENOrdering Facility: [facility] Address: [address] [place] [address] Performed By: #### 5 8410-2 ####[facility] [id number] [place] [address] [place] WBC (Bld) [#/Vol] 5.21 10*3/uL Normal 3.70-11.00 [facility] Comment on above: Order Comment: Speci men Type: BLOOD SPECIMENOrdering Facility: [facility] Address: [address] [place], [place] [address] Performed By: #### 5 8410-2 ####[facility] [id number] [place] [address] [place] CK SerPl-cCncon 09-19-2022 CK [Catalytic activity/Vol] 1838 U/L High 51-298 [facility] Comment on above: Order Comment: Speci men Type: BLOOD SPECIMENOrdering Facility: [facility] Address: [address] [place] [address] Performed By: #### 2 4323-8, 277-1, 2156-08, ####[facility] [id number] [place] [id number] [place] CONSULTon 09-19-2022 CONSULT Normal [facility] CONSULT Normal [facility] Comprehensive metabolic 2000 panelon 09-19-2022 Albumin [Mass/Vol] 3.4 g/dL Low 3.9-4.9 [facility] Comment on above: Order Comment: Speci men Type: BLOOD SPECIMENOrdering Facility: [facility] Address: [address] Performed By: #### 2 4323-8, 277-, 2156-08, ####[facility] [id number] [place] [address] [place] ALP [Catalytic activity/Vol] 90 U/L Normal 38-113 [facility] Comment on above: Order Comment: Speci men Type: BLOOD SPECIMENOrdering Facility: [facility] Address: [address] [place] [address] Performed By: #### 2 4323-8, 2776-, 2156-08, ####[facility] [id number] [place] [address] [place] ALT [Catalytic activity/Vol] 11 U/L Normal 10-54 [facility] Comment on above: Order Comment: Speci men Type: BLOOD SPECIMENOrdering Facility: [facility] Address: [address] [phone] Performed By: #### 2 4323-8, 277-1, 2156-08, ####[facility] [id number] [place] [address] [place] Anion gap [Moles/Vol] 21 mmol/L High 9-18 [facility] Comment on above: Order Comment: Speci men Type: BLOOD SPECIMENOrdering Facility: [facility] Address: [address] [place], [place] [address] Performed By: #### 2 4323-8, 2777-1, 2156-08, ####[facility] [id number] [place] [address] [place] AST [Catalytic activity/Vol] 29 U/L Normal 14-40 [facility] Comment on above: Order Comment: Speci men Type: BLOOD SPECIMENOrdering Facility: [facility] Address: [address] [place] [address] Performed By: #### 2 4323-8, 2777-1, 2156-08, ####[facility] [id number] [place] [address] [place] Bilirubin [Mass/Vol] 0.6 mg/dL Normal 0.2-1.3 [facility] Comment on above: Order Comment: Speci men Type: BLOOD SPECIMENOrdering Facility: [facility] Address: [address] [place], [place] [phone] Performed By: #### 2 4323-8, 2777-1, 2156-08, ####[facility] [id number] [place] [address] [place] Calcium [Mass/Vol] 8.5 mg/dL Normal 8.5-10.2 [facility] Comment on above: Order Comment: Speci men Type: BLOOD SPECIMENOrdering Facility: [facility] Address: [address] [place], [place] [address] Performed By: #### 2 4323-8, 2777-1, 2156-08, ####[facility] [id number] [place] [address] [place] Chloride [Moles/Vol] 105 mmol/L Normal 97-105 [facility] Comment on above: Order Comment: Speci men Type: BLOOD SPECIMENOrdering Facility: [facility] Address: [address] [place], [place] [phone] Performed By: #### 2 4323-8, 2777-, 2156-08, ####[facility] [id number] [place] [address] [place] CO2 [Moles/Vol] 14 mmol/L Low 22-30 [facility] Comment on above: Order Comment: Speci men Type: BLOOD SPECIMENOrdering Facility: [facility] Address: [address] [place] [address] Performed By: #### 2 4323-8, 2777-, 2156-08, ####[facility] [id number] [place] [address] [place] Creatinine [Mass/Vol] 2.45 mg/dL High 0.73-1.22 [facility] Comment on above: Order Comment: Speci men Type: BLOOD SPECIMENOrdering Facility: [facility] Address: [address] [place] [address] Performed By: #### 2 4323-8, 2777, 2156-08, ####[facility] [id number] [place] [address] [place] ESTIMATED GLOMERULAR FILTRATION RATE 28 mL/min/1.73m??? Low >=60 [facility] Comment on above: Order Comment: Speci men Type: BLOOD SPECIMENOrdering Facility: [facility] Address: [address] [place] [address] Result Comment: Ignacia mated Glomerular Filtration Rate [...] Performed By: #### 2 4323-8, 2777-1, 2156-08, ####[facility] [id number] [address] [address] [place] Glucose [Mass/Vol] 86 mg/dL Normal 74-99 [facility] Comment on above: Order Comment: Speci men Type: BLOOD SPECIMENOrdering Facility: [facility] Address: [address] [place], [place] [address] Result Comment: The [place] [employer] (ADA) provides guidance for cutoff [...] Standards of Medical Care in Diabetes 2016, [place] [employer]. Diabetes Care. 2016.39(Suppl 1). Performed By: #### 2 4323-8, 277-1, 2156-08, ####[facility] [id number] [address] [address] [place] Potassium [Moles/Vol] 4.7 mmol/L Normal 3.7-5.1 [facility] Comment on above: Order Comment: Speci men Type: BLOOD SPECIMENOrdering Facility: [facility] Address: [address] [place] [phone] Performed By: #### 2 4323-8, 2777-1, 2156-08, ####[facility] [id number] [address] [address] [place] Protein [Mass/Vol] 6.7 g/dL Normal 6.3-8.0 [facility] Comment on above: Order Comment: Speci men Type: BLOOD SPECIMENOrdering Facility: [facility] Address: [address] [phone] Performed By: #### 2 4323-8, 2777-1, 2156-08, ####[facility] [id number] [place] [address] [place] Sodium [Moles/Vol] 140 mmol/L Normal 136-144 [facility] Comment on above: Order Comment: Speci men Type: BLOOD SPECIMENOrdering Facility: [facility] Address: [address] [address] Performed By: #### 2 4323-8, 2776-, 2156-08, ####[facility] [id number] [place] [address] [place] Urea nitrogen [Mass/Vol] 28 mg/dL High 9-24 [facility] Comment on above: Order Comment: Speci men Type: BLOOD SPECIMENOrdering Facility: [facility] Address: [address] Performed By: #### 2 4323-8, 2776-, 2156-08, ####[facility] [id number] [place] [address] [place] ECG COMPLETEon 09-19-2022 ECG COMPLETE Normal [facility] Gas and Carbon monoxide pane l (BldV)on 09-19-2022 BASE DEFICIT, VENOUS -12 mmol/L Low -2-0 [facility] Comment on above: Order Comment: Speci men Type: VENOUS BLOOD SPECIMENOrdering Facility: [facility] Address: [address] Performed By: #### 2 4344-4 ####[facility] [id number] [place] [address] [place] Body temperature 98.6 [degF] Normal [facility] Comment on above: Order Comment: Speci men Type: VENOUS BLOOD SPECIMENOrdering Facility: [facility] Address: [address] [address] Performed By: #### 2 4344-4 ####[facility] [id number] [place] [address] [place] Calcium.ionized (Bld) [Mass/Vol] 1.20 mmol/L Normal 1.08-1.30 [facility] Comment on above: Order Comment: Speci men Type: VENOUS BLOOD SPECIMENOrdering Facility: [facility] Address: [address] [address] Performed By: #### 2 4344-4 ####[facility] [id number] [place] [address] [place] Calcium.ionized adjusted to pH 7.4 (BldA) [Moles/Vol] Normal [facility] Comment on above: Order Comment: Speci men Type: VENOUS BLOOD SPECIMENOrdering Facility: [facility] Address: [address] [place] [address] Result Comment: Aletha ured pH is <7.20. Unable to report normalized Calcium. Performed By: #### 2 4344-4 ####[facility] [id number] [place] [address] [place] Carboxyhemoglobin (BldV) [Mass fraction] 1.0 % Normal 0.0-2.0 [facility] Comment on above: Order Comment: Speci men Type: VENOUS BLOOD SPECIMENOrdering Facility: [facility] Address: [address] [address] Result Comment: Carb oxyhemoglobin Reference Range for Smokers: 2.0-8.0% Performed By: #### 2 4344-4 ####[facility] [id number] [place] [address] [place] CO2 (BldV) [Partial pressure] 48 mm[Hg] Normal 42-55 [facility] Comment on above: Order Comment: Speci men Type: VENOUS BLOOD SPECIMENOrdering Facility: [facility] Address: [address] [address] Performed By: #### 2 4344-4 ####[facility] [id number] [place] [address] [place] CO2 [Moles/Vol] 18 mmol/L Low 25-29 [facility] Comment on above: Order Comment: Speci men Type: VENOUS BLOOD SPECIMENOrdering Facility: [facility] Address: [address] [address] Performed By: #### 2 4344-4 ####[facility] [id number] [place] [address] [place] COMMENTS Critical Value: pH, pHTC Urgent Value: LACT Normal [facility] Comment on above: Order Comment: Speci men Type: VENOUS BLOOD SPECIMENOrdering Facility: [facility] Address: [address] [address] Performed By: #### 2 4344-4 ####[facility] [id number] [place] [address] [place] DATE/TIME NOTIFIED [id number] AM Normal [facility] Comment on above: Order Comment: Speci men Type: VENOUS BLOOD SPECIMENOrdering Facility: [facility] Address: [address] Performed By: #### 2 4344-4 ####[facility] [id number] [place] [address] [place] Glucose [Mass/Vol] 108 mg/dL High 60-105 [facility] Comment on above: Order Comment: Speci men Type: VENOUS BLOOD SPECIMENOrdering Facility: [facility] Address: [address] Performed By: #### 2 4344-4 ####[facility] [id number] [place] [address] [place] HCO3 (Bld) [Moles/Vol] 16 mmol/L Low 24-28 [facility] Comment on above: Order Comment: Speci men Type: VENOUS BLOOD SPECIMENOrdering Facility: [facility] Address: [address] [place] [address] Performed By: #### 2 4344-4 ####[facility] [id number] [place] [address] [place] Hematocrit (Bld) [Volume fraction] 36.9 % Low 39.0-51.0 [facility] Comment on above: Order Comment: Speci men Type: VENOUS BLOOD SPECIMENOrdering Facility: [facility] Address: [address] [place] [address] Performed By: #### 2 4344-4 ####[facility] [id number] [address] [place] Hemoglobin (Bld) [Mass/Vol] 12.0 g/dL Low 13.0-17.0 [facility] Comment on above: Order Comment: Speci men Type: VENOUS BLOOD SPECIMENOrdering Facility: [facility] Address: [address] [place] [address] Performed By: #### 2 4344-4 ####[facility] [id number] [place] [address] [place] Lactate [Moles/Vol] 11.2 mmol/L High 0.5-2.2 [facility] Comment on above: Order Comment: Speci men Type: VENOUS BLOOD SPECIMENOrdering Facility: [facility] Address: [address] [place], [place] [phone] Performed By: #### 2 4344-4 ####[facility] [id number] [place] [address] [place] Methemoglobin (Bld) [Mass fraction] 0.9 % Normal 0.0-1.5 [facility] Comment on above: Order Comment: Speci men Type: VENOUS BLOOD SPECIMENOrdering Facility: [facility] Address: [address] Performed By: #### 2 4344-4 ####[facility] [id number] [place] [address] [place] NOTIFIED WHOM Rosy Curtis RN G62Analia Normal [facility] Comment on above: Order Comment: Speci men Type: VENOUS BLOOD SPECIMENOrdering Facility: [facility] Address: [address] Performed By: #### 2 4344-4 ####[facility] [id number] [place] [address] [place] O2 THERAPY RA=Room Air Normal [facility] Comment on above: Order Comment: Speci men Type: VENOUS BLOOD SPECIMENOrdering Facility: [facility] Address: [address] [place] [address] Performed By: #### 2 4344-4 ####[facility] [id number] [place] [address] [place] Oxygen (BldV) [Partial pressure] 40 mm[Hg] Normal 35-45 [facility] Comment on above: Order Comment: Speci men Type: VENOUS BLOOD SPECIMENOrdering Facility: [facility] Address: [address] [place] [address] Performed By: #### 2 4344-4 ####[facility] [id number] [place] [address] [place] Oxygen saturation in Venous blood 56 % Low 60-85 [facility] Comment on above: Order Comment: Speci men Type: VENOUS BLOOD SPECIMENOrdering Facility: [facility] Address: [address] Performed By: #### 2 4344-4 ####[facility] [id number] [place] [address] [place] Oxyhemoglobin (BldV) [Mass fraction] 55 % Low 60-85 [facility] Comment on above: Order Comment: Speci men Type: VENOUS BLOOD SPECIMENOrdering Facility: [facility] Address: [address] [place] [address] Performed By: #### 2 4344-4 ####[facility] [id number] [place] [address] [place] pH (BldV) 7.16 [pH] Critically low 7.32-7.42 [facility] Comment on above: Order Comment: Speci men Type: VENOUS BLOOD SPECIMENOrdering Facility: [facility] Address: [address] [place] [address] Performed By: #### 2 4344-4 ####[facility] [id number] [place] [address] [place] Potassium [Moles/Vol] 5.8 mmol/L High 3.5-5.0 [facility] Comment on above: Order Comment: Speci men Type: VENOUS BLOOD SPECIMENOrdering Facility: [facility] Address: [address] [place], [place] [address] Performed By: #### 2 4344-4 ####[facility] [id number] [place] [address] [place] Sodium [Moles/Vol] 141 mmol/L Normal 136-144 [facility] Comment on above: Order Comment: Speci men Type: VENOUS BLOOD SPECIMENOrdering Facility: [facility] Address: [address] [place], [place] [address] Performed By: #### 2 4344-4 ####[facility] [id number] [place] [address] [place] HISTORY PHYSICALon 3 HISTORY PHYSICAL Normal [facility] HISTORY PHYSICAL Normal [facility] IR NEPHROSTOMY TUBE PLACEon 09-19-[address] Normal [facility] Magnesium SerPl-mCncon 09-19 Magnesium [Mass/Vol] 1.4 mg/dL Low 1.7-2.3 [facility] Comment on above: Order Comment: Speci men Type: BLOOD SPECIMENOrdering Facility: [facility] Address: [address] [phone] Performed By: #### 2 4323-8, 2777-1, 2157-6, 25235-7 ####[facility] [id number] [facility] [address] [phone] [facility] NURSING PROGon 09-19-2022 NURSING PROG Normal [facility] PT EDon 09-19-2022 PT ED Normal [facility] PT panel Coag (PPP)on 2022 INR Coag (PPP) [Relative time] 1.3 {INR} Normal 0.9-1.3 [facility] Comment on above: Order Comment: Speci men Type: BLOOD SPECIMENOrdering Facility: [facility] Address: [address] [phone] Result Comment: Kendra min K Antagonist (VKA) Therapeutic Range: INR 2 to 3 (Target INR of 2.5)Note: For patients treated with VKA drugs, such as warfarin, the [place] [employer] 2012 Guideline recommends [...] 70: 252-289 Performed By: #### 3 4528-0 ####[facility] [id number] [place] [address] [place] PT Coag (PPP) [Time] 13.7 s High 9.7-13.0 [facility] Comment on above: Order Comment: Speci men Type: BLOOD SPECIMENOrdering Facility: [facility] Address: [address] [place] [address] Performed By: #### 3 4528-0 ####[facility] [id number] [place] [address] [place] Phosphate SerPl-mCncon 09-19 Phosphate [Mass/Vol] 5.4 mg/dL High 2.7-4.8 [facility] Comment on above: Order Comment: Speci men Type: BLOOD SPECIMENOrdering Facility: [facility] Address: [address] [place] [address] Performed By: #### 2 4323-8, 2777-1, 2157-6, 88053-6 ####[facility] [id number] [address] [place] SARS-CoV-2 RNA Resp Ql ROSSANA+p robeon 09-19-2022 SARS-CoV-2 (COVID-19) RNA ROSSANA+probe Ql (Resp) COVID 19 RESULT: Not detected The method used is RT-PCR or an equivalent NAAT method. Reference Range(the expected result in uninfected individuals): Not detected Normal [facility] Comment on above: Performed By: #### 9 4500-6 ####[facility] [id number] [address] [place] STAPH AUREUS PCRon S. aureus and MRSA panel ROSSANA+probe (Nose) Abnormal Negative [facility] Comment on above: Order Comment: Speci men Type: SWAB OF INTERNAL NOSEOrdering Facility: [facility] Address: [address] [place] [address] Result Comment: Posi tive for Staphylococcus aureus by PCR.Negative for MRSA by PCR Performed By: #### S APCR ####[facility] [id number] [address] [place] Urinalysis complete panel (U )on 09-19-2022 Bacteria LM.HPF (Urine sed) [#/Area] Moderate Abnormal None Seen [facility] Comment on above: Order Comment: Speci men Type: URINE SPECIMENOrdering Facility: [facility] Address: [address] [place] [address] Performed By: #### 2 4356-8 ####[facility] [id number] [place] [address] [place] Bilirubin Ql (U) Negative Normal Negative [facility] Comment on above: Order Comment: Speci men Type: URINE SPECIMENOrdering Facility: [facility] Address: [address] [place] [address] Performed By: #### 2 4356-8 ####[facility] [id number] [place] [address] [place] Clarity (Unsp spec) Turbid Abnormal Clear [facility] Comment on above: Order Comment: Speci men Type: URINE SPECIMENOrdering Facility: [facility] Address: [address] [place], [place] [phone] Performed By: #### 2 4356-8 ####[facility] [id number] [place] [address] [place] Color (U) Yellow Normal Yellow [facility] Comment on above: Order Comment: Speci men Type: URINE SPECIMENOrdering Facility: [facility] Address: [address] [place] [address] Performed By: #### 2 4356-8 ####[facility] [id number] [place] [address] [place] Glucose Test strip (U) [Mass/Vol] Negative Normal Trace, Negative [facility] Comment on above: Order Comment: Speci men Type: URINE SPECIMENOrdering Facility: [facility] Address: [address] [place] [address] Performed By: #### 2 4356-8 ####[facility] [id number] [place] [address] [place] Hemoglobin Ql (U) 3+ Abnormal Negative, Trace [facility] Comment on above: Order Comment: Speci men Type: URINE SPECIMENOrdering Facility: [facility] Address: [address] [place] [address] Performed By: #### 2 4356-8 ####[facility] [id number] [address] [place] Ketones Ql (U) Negative Normal Trace, Negative [facility] Comment on above: Order Comment: Speci men Type: URINE SPECIMENOrdering Facility: [facility] Address: [address] [place], [place] [phone] Performed By: #### 2 4356-8 ####[facility] [id number] [place] [address] [place] Leukocyte esterase Test strip Ql (U) 500 Arnulfo/uL Abnormal Negative, 25 Arnulfo/uL [facility] Comment on above: Order Comment: Speci men Type: URINE SPECIMENOrdering Facility: [facility] Address: [address] Performed By: #### 2 4356-8 ####[facility] [id number] [place] [address] [place] Nitrite Ql (U) 2+ Abnormal Negative [facility] Comment on above: Order Comment: Speci men Type: URINE SPECIMENOrdering Facility: [facility] Address: [address] Performed By: #### 2 4356-8 ####[facility] [id number] [place] [address] [place] pH (U) 6.0 [pH] Normal 5.0-8.0 [facility] Comment on above: Order Comment: Speci men Type: URINE SPECIMENOrdering Facility: [facility] Address: [address] [place] [address] Performed By: #### 2 4356-8 ####[facility] [id number] [place] [address] [place] Protein (U) [Mass/Vol] 2+ Abnormal Trace , Negative [facility] Comment on above: Order Comment: Speci men Type: URINE SPECIMENOrdering Facility: [facility] Address: [address] [place] [address] Performed By: #### 2 4356-8 ####[facility] [id number] [place] [address] [place] RBC LM.HPF (Urine sed) [#/Area] /[HPF] Abnormal 0-3 /HPF [facility] Comment on above: Order Comment: Speci men Type: URINE SPECIMENOrdering Facility: [facility] Address: [address] [place] [address] Performed By: #### 2 4356-8 ####[facility] [id number] [place] [address] [place] Specific gravity (U) [Rel density] 1.015 Normal 1.005-1.030 [facility] Comment on above: Order Comment: Speci men Type: URINE SPECIMENOrdering Facility: [facility] Address: [address] [place] [phone] Performed By: #### 2 4356-8 ####[facility] [id number] [address] [place] Urobilinogen Ql (U) Negative Normal Negative [facility] Comment on above: Order Comment: Speci men Type: URINE SPECIMENOrdering Facility: [facility] Address: [address] [address] Performed By: #### 2 4356-8 ####[facility] [id number] [place] [address] [place] WBC LM.HPF (Urine sed) [#/Area] /[HPF] Abnormal 0-5 /HPF [facility] Comment on above: Order Comment: Speci men Type: URINE SPECIMENOrdering Facility: [facility] Address: [address] [place] [address] Performed By: #### 2 4356-8 ####[facility] [id number] [place] [address] [place] Urinalysis complete pnl Uron 09-19-2022 Urinalysis complete panel (U) Normal [facility] Comment on above: Order Comment: Speci men Type: URINE SPECIMENOrdering Facility: [facility] Address: [address] [place] [address] Performed By: #### 2 4356-8 ####[facility] [id number] [place] [address] [place] XR ABDOMEN 1V SUPINEon 09-19 XR ABDOMEN 1V SUPINE Normal [facility] XR CHEST 1V FRONTAL PORTon 0 09-19-2022 XR CHEST 1V FRONTAL PORT Normal [facility] XR CHEST 1V FRONTAL PORT Normal [facility] CNOVon 09-01-2022 CNOV Normal [facility] CNPNon 08-17-2022 CNPN Normal [facility] CASE MANAGEMon 08-13-2022 CASE MANAGEM Normal [facility] CNPNon 08-13-2022 CNPN Normal [facility] CASE MANAGEMon 08-12-2022 CASE MANAGEM Normal [facility] CONSULT PROGon 08-12-2022 CONSULT PROG Normal [facility] Basic metabolic 2000 panelon 08-11-2022 Anion gap [Moles/Vol] 10 mmol/L Normal 9-18 [facility] Comment on above: Order Comment: Speci men Type: BLOOD SPECIMENOrdering Facility: [facility] Address: [address] [place] [phone] Performed By: #### 2 4321-2 ####[facility] [id number] [place] [address] [place] Calcium [Mass/Vol] 8.7 mg/dL Normal 8.5-10.2 [facility] Comment on above: Order Comment: Speci men Type: BLOOD SPECIMENOrdering Facility: [facility] Address: [address] [place] [address] Performed By: #### 2 4321-2 ####[facility] [id number] [place] [address] [place] Chloride [Moles/Vol] 107 mmol/L High 97-105 [facility] Comment on above: Order Comment: Speci men Type: BLOOD SPECIMENOrdering Facility: [facility] Address: [address] [place] [address] Performed By: #### 2 4321-2 ####[facility] [id number] [place] [address] [place] CO2 [Moles/Vol] 23 mmol/L Normal 22-30 [facility] Comment on above: Order Comment: Speci men Type: BLOOD SPECIMENOrdering Facility: [facility] Address: [address] [place] [phone] Performed By: #### 2 4321-2 ####[facility] [id number] [place] [address] [place] Creatinine [Mass/Vol] 0.73 mg/dL Normal 0.73-1.22 [facility] Comment on above: Order Comment: Speci men Type: BLOOD SPECIMENOrdering Facility: [facility] Address: [address] [address] Performed By: #### 2 4321-2 ####[facility] [id number] ESTIMATED GLOMERULAR FILTRATION RATE 100 mL/min/1.73m??? Normal >=60 [facility] Comment on above: Order Comment: Cierra cartwright Type: BLOOD SPECIMENOrdering Facility: [facility] Address: [address] [address] Result Comment: Ignacia mated Glomerular Filtration Rate [...] actual GFR. Performed By: #### 2 4321-2 ####[facility] [id number] [address] [facility] Glucose [Mass/Vol] 74 mg/dL Normal 74-99 [facility] [facility] Comment on above: Order Comment: Cierra cartwright Type: BLOOD SPECIMENOrdering Facility: [facility] Address: [address] [place] [address] Result Comment: The [place] Diabetes Association (ADA) provides guidance for cutoff [...] Standards of Medical Care in Diabetes 2016, [place] [employer]. Diabetes Care. 2016.39(Suppl 1). Performed By: #### 2 4321-2 ####[facility] [id number] [place] [address] [place] Potassium [Moles/Vol] 4.0 mmol/L Normal 3.7-5.1 [facility] Comment on above: Order Comment: Speci men Type: BLOOD SPECIMENOrdering Facility: [facility] Address: [address] [place] [address] Performed By: #### 2 4321-2 ####[facility] [id number] [place] [address] [place] Sodium [Moles/Vol] 140 mmol/L Normal 136-144 [facility] Comment on above: Order Comment: Speci men Type: BLOOD SPECIMENOrdering Facility: [facility] Address: [address] [place] [address] Performed By: #### 2 4321-2 ####[facility] [id number] [place] [address] [place] Urea nitrogen [Mass/Vol] 7 mg/dL Low 9-24 [facility] Comment on above: Order Comment: Speci men Type: BLOOD SPECIMENOrdering Facility: [facility] Address: [address] [place] [address] Performed By: #### 2 4321-2 ####[facility] [id number] [place] [address] [place] CBC panel Auto (Bld)on 08-11 Erythrocyte distribution width (RBC) [Ratio] 13.6 % Normal 11.5-15.0 [facility] Comment on above: Order Comment: Speci men Type: BLOOD SPECIMENOrdering Facility: [facility] Address: [address] [place] [address] Performed By: #### 5 8410-2 ####[facility] [id number] [place] [address] [place] Hematocrit (Bld) [Volume fraction] 28.0 % Low 39.0-51.0 [facility] Comment on above: Order Comment: Speci men Type: BLOOD SPECIMENOrdering Facility: [facility] Address: [address] [place] [address] Performed By: #### 5 8410-2 ####[facility] [id number] [place] [address] [place] Hemoglobin (Bld) [Mass/Vol] 9.1 g/dL Low 13.0-17.0 [facility] Comment on above: Order Comment: Speci men Type: BLOOD SPECIMENOrdering Facility: [facility] Address: [address] [place] [address] Performed By: #### 5 8410-2 ####[facility] [id number] [address] [place] MCH (RBC) [Entitic mass] 28.3 pg Normal 26.0-34.0 [facility] Comment on above: Order Comment: Speci men Type: BLOOD SPECIMENOrdering Facility: [facility] Address: [address] [place] [address] Performed By: #### 5 8410-2 ####[facility] [id number] [place] [address] [place] MCHC (RBC) [Mass/Vol] 32.5 g/dL Normal 30.5-36.0 [facility] Comment on above: Order Comment: Speci men Type: BLOOD SPECIMENOrdering Facility: [facility] Address: [address] Performed By: #### 5 8410-2 ####[facility] [id number] [place] [address] [place] MCV (RBC) [Entitic vol] 87.2 fL Normal 80.0-100.[address] [facility] Comment on above: Order Comment: Speci men Type: BLOOD SPECIMENOrdering Facility: [facility] Address: [address] [place] [address] Performed By: #### 5 8410-2 ####[facility] [id number] [place] [address] [place] Nucleated RBC (Bld) [#/Vol] 10*3/uL Normal <0.01 [facility] Comment on above: Order Comment: Speci men Type: BLOOD SPECIMENOrdering Facility: [facility] Address: [address] Performed By: #### 5 8410-2 ####[facility] [id number] [place] [address] [place] Platelet mean volume (Bld) [Entitic vol] 9.5 fL Normal 9.0-12.7 [facility] Comment on above: Order Comment: Speci men Type: BLOOD SPECIMENOrdering Facility: [facility] Address: [address] Performed By: #### 5 8410-2 ####[facility] [id number] [place] [address] [place] Platelets (Bld) [#/Vol] 251 10*3/uL Normal 150-400 [facility] Comment on above: Order Comment: Speci men Type: BLOOD SPECIMENOrdering Facility: [facility] Address: [address] [place] [address] Performed By: #### 5 8410-2 ####[facility] [id number] [place] [address] [place] RBC (Bld) [#/Vol] 3.21 10*6/uL Low 4.20-6.00 [facility] Comment on above: Order Comment: Speci men Type: BLOOD SPECIMENOrdering Facility: [facility] Address: [address] Performed By: #### 5 8410-2 ####[facility] [id number] [place] [address] [place] WBC (Bld) [#/Vol] 4.70 10*3/uL Normal 3.70-11.00 [facility] Comment on above: Order Comment: Speci men Type: BLOOD SPECIMENOrdering Facility: [facility] Address: [address] [place] [address] Performed By: #### 5 8410-2 ####[facility] [id number] [place] [address] [place] Basic metabolic 2000 panelon 08-10-2022 Anion gap [Moles/Vol] 11 mmol/L Normal 9-18 [facility] Comment on above: Order Comment: Speci men Type: BLOOD SPECIMENOrdering Facility: [facility] Address: [address] [place] [address] Performed By: #### 2 4321-2 ####[facility] [id number] [place] [address] [place] Calcium [Mass/Vol] 9.1 mg/dL Normal 8.5-10.2 [facility] Comment on above: Order Comment: Speci men Type: BLOOD SPECIMENOrdering Facility: [facility] Address: [address] [place] [address] Performed By: #### 2 4321-2 ####[facility] [id number] [place] [address] [place] Chloride [Moles/Vol] 102 mmol/L Normal 97-105 [facility] Comment on above: Order Comment: Speci men Type: BLOOD SPECIMENOrdering Facility: [facility] Address: [address] [place], [place] [address] Performed By: #### 2 4321-2 ####[facility] [id number] [place] [address] [place] CO2 [Moles/Vol] 22 mmol/L Normal 22-30 [facility] Comment on above: Order Comment: Speci men Type: BLOOD SPECIMENOrdering Facility: [facility] Address: [address] [place] [address] Performed By: #### 2 4321-2 ####[facility] [id number] [place] [address] [place] Creatinine [Mass/Vol] 0.67 mg/dL Low 0.73-1.22 [facility] Comment on above: Order Comment: Speci men Type: BLOOD SPECIMENOrdering Facility: [facility] Address: [address] [place] [address] Performed By: #### 2 4321-2 ####[facility] [id number] [place] [address] [place] ESTIMATED GLOMERULAR FILTRATION RATE 102 mL/min/1.73m??? Normal >=60 [facility] Comment on above: Order Comment: Speci men Type: BLOOD SPECIMENOrdering Facility: [facility] Address: [address] [place] [address] Result Comment: Ignacia mated Glomerular Filtration Rate [...] actual GFR. Performed By: #### 2 4321-2 ####[facility] [id number] [place] [address] [place] Glucose [Mass/Vol] 128 mg/dL High 74-99 [facility] Comment on above: Order Comment: Speci men Type: BLOOD SPECIMENOrdering Facility: [facility] Address: [address] [place] [address] Result Comment: The [place] Diabetes Association (ADA) provides guidance for cutoff [...] Standards of Medical Care in Diabetes 2016, [place] [employer]. Diabetes Care. 2016.39(Suppl 1). Performed By: #### 2 4321-2 ####[facility] [id number] [place] [address] [place] Potassium [Moles/Vol] 3.8 mmol/L Normal 3.7-5.1 [facility] Comment on above: Order Comment: Speci men Type: BLOOD SPECIMENOrdering Facility: [facility] Address: [address] [place] [address] Performed By: #### 2 1-2 ####[facility] [id number] [place] [address] [place] Sodium [Moles/Vol] 135 mmol/L Low 136-144 [facility] Comment on above: Order Comment: Speci men Type: BLOOD SPECIMENOrdering Facility: [facility] Address: [address] [place] [address] Performed By: #### 2 1-2 ####[facility] [id number] [place] [address] [place] Urea nitrogen [Mass/Vol] 9 mg/dL Normal 9-24 [facility] Comment on above: Order Comment: Speci men Type: BLOOD SPECIMENOrdering Facility: [facility] Address: [address] [place] [address] Performed By: #### 2 4321-2 ####[facility] [id number] [place] [address] [place] CASE MGT INIT ASSESon 2022 CASE MGT INIT ASSES Normal [facility] CBC panel Auto (Bld)on 08-10 Erythrocyte distribution width (RBC) [Ratio] 13.2 % Normal 11.5-15.0 [facility] Comment on above: Order Comment: Speci men Type: BLOOD SPECIMENOrdering Facility: [facility] Address: [address] [place] [address] Performed By: #### 5 8410-2 ####[facility] [id number] [place] [address] [place] Hematocrit (Bld) [Volume fraction] 28.5 % Low 39.0-51.0 [facility] Comment on above: Order Comment: Speci men Type: BLOOD SPECIMENOrdering Facility: [facility] Address: [address] [place] [address] Performed By: #### 5 8410-2 ####[facility] [id number] [address] [place] Hemoglobin (Bld) [Mass/Vol] 9.7 g/dL Low 13.0-17.0 [facility] Comment on above: Order Comment: Speci men Type: BLOOD SPECIMENOrdering Facility: [facility] Address: [address] [place] [address] Performed By: #### 5 8410-2 ####[facility] [id number] [place] [address] [place] MCH (RBC) [Entitic mass] 28.9 pg Normal 26.0-34.0 [facility] Comment on above: Order Comment: Speci men Type: BLOOD SPECIMENOrdering Facility: [facility] Address: [address] [place] [address] Performed By: #### 5 8410-2 ####[facility] [id number] [place] [address] [place] MCHC (RBC) [Mass/Vol] 34.0 g/dL Normal 30.5-36.0 [facility] Comment on above: Order Comment: Speci men Type: BLOOD SPECIMENOrdering Facility: [facility] Address: [address] [place], [place] [address] Performed By: #### 5 8410-2 ####[facility] [id number] [place] [address] [place] MCV (RBC) [Entitic vol] 84.8 fL Normal 80.0-100.[address] [facility] Comment on above: Order Comment: Speci men Type: BLOOD SPECIMENOrdering Facility: [facility] Address: [address] [place], [place] [address] Performed By: #### 5 8410-2 ####[facility] [id number] [place] [address] [place] Nucleated RBC (Bld) [#/Vol] 10*3/uL Normal <0.01 [facility] Comment on above: Order Comment: Speci men Type: BLOOD SPECIMENOrdering Facility: [facility] Address: [address] [place], [place] [address] Performed By: #### 5 8410-2 ####[facility] [id number] [place] [address] [place] Platelet mean volume (Bld) [Entitic vol] 9.3 fL Normal 9.0-12.7 [facility] Comment on above: Order Comment: Speci men Type: BLOOD SPECIMENOrdering Facility: [facility] Address: [address] [place], [place] [address] Performed By: #### 5 8410-2 ####[facility] [id number] [place] [address] [place] Platelets (Bld) [#/Vol] 234 10*3/uL Normal 150-400 [facility] Comment on above: Order Comment: Speci men Type: BLOOD SPECIMENOrdering Facility: [facility] Address: [address] [place] [address] Performed By: #### 5 8410-2 ####[facility] [id number] [place] [address] [place] RBC (Bld) [#/Vol] 3.36 10*6/uL Low 4.20-6.00 [facility] Comment on above: Order Comment: Speci men Type: BLOOD SPECIMENOrdering Facility: [facility] Address: [address] [place] [address] Performed By: #### 5 8410-2 ####[facility] [id number] [place] [address] [place] WBC (Bld) [#/Vol] 5.31 10*3/uL Normal 3.70-11.00 [facility] Comment on above: Order Comment: Speci men Type: BLOOD SPECIMENOrdering Facility: [facility] Address: [address] [place] [address] Performed By: #### 5 8410-2 ####[facility] [id number] [place] [address] [place] CONSULT PROGon 08-10-2022 CONSULT PROG Normal [facility] NURSING PROGon 08-10-2022 NURSING PROG Normal [facility] ANES POSTPROC EVALon 023 ANES POSTPROC EVAL Normal [facility] ANES PRE-OPon 08-09-2022 ANES PRE-OP Normal [facility] BRIEF OP NOTon 08-09-2022 BRIEF OP NOT Normal [facility] Bacteria Ur Culton 3 Bacteria identified Cx Nom (U) Abnormal [facility] Comment on above: Performed By: #### 6 30-4 ####[facility] [id number] [address] [id number] [address] [place] Basic metabolic 2000 panelon 08-09-2022 Anion gap [Moles/Vol] 10 mmol/L Normal 9-18 [facility] Comment on above: Order Comment: Speci men Type: BLOOD SPECIMENOrdering Facility: [facility] Address: [address] [place] [address] Performed By: #### 2 4321-2 ####[facility] [id number] [place] [address] [place] Calcium [Mass/Vol] 8.7 mg/dL Normal 8.5-10.2 [facility] Comment on above: Order Comment: Speci men Type: BLOOD SPECIMENOrdering Facility: [facility] Address: [address] [place] [address] Performed By: #### 2 4321-2 ####[facility] [id number] [place] [address] [place] Chloride [Moles/Vol] 108 mmol/L High 97-105 [facility] Comment on above: Order Comment: Speci men Type: BLOOD SPECIMENOrdering Facility: [facility] Address: [address] [place] [address] Performed By: #### 2 4321-2 ####[facility] [id number] [place] [address] [place] CO2 [Moles/Vol] 23 mmol/L Normal 22-30 [facility] Comment on above: Order Comment: Speci men Type: BLOOD SPECIMENOrdering Facility: [facility] Address: [address] [place] [address] Performed By: #### 2 4321-2 ####[facility] [id number] [place] [address] [place] Creatinine [Mass/Vol] 0.72 mg/dL Low 0.73-1.22 [facility] Comment on above: Order Comment: Speci men Type: BLOOD SPECIMENOrdering Facility: [facility] Address: [address] [place] [address] Performed By: #### 2 4321-2 ####[facility] [id number] [address] ESTIMATED GLOMERULAR FILTRATION RATE 100 mL/min/1.73m??? Normal >=60 [facility] Comment on above: Order Comment: Cierra cartwright Type: BLOOD SPECIMENOrdering Facility: [facility] Address: [address] [place] [address] Result Comment: Ignacia mated Glomerular Filtration Rate [...] actual GFR. Performed By: #### 2 4321-2 ####[facility] [id number] [address] [facility] Glucose [Mass/Vol] 74 mg/dL Normal 74-99 [facility] Comment on above: Order Comment: Cierra cartwright Type: BLOOD SPECIMENOrdering Facility: [facility] Address: [address] [place] [address] Result Comment: The [place] Diabetes Association (ADA) provides guidance for cutoff [...] Standards of Medical Care in Diabetes 2016, [place] [employer]. Diabetes Care. 2016.39(Suppl 1). Performed By: #### 2 4321-2 ####[facility] [id number] [place] [address] [place] Potassium [Moles/Vol] 3.8 mmol/L Normal 3.7-5.1 [facility] Comment on above: Order Comment: Speci men Type: BLOOD SPECIMENOrdering Facility: [facility] Address: [address] [place] [address] Performed By: #### 2 4321-2 ####[facility] [id number] [place] [address] [place] Sodium [Moles/Vol] 141 mmol/L Normal 136-144 [facility] Comment on above: Order Comment: Speci men Type: BLOOD SPECIMENOrdering Facility: [facility] Address: [address] [place] [address] Performed By: #### 2 4321-2 ####[facility] [id number] [place] [address] [place] Urea nitrogen [Mass/Vol] 8 mg/dL Low 9-24 [facility] Comment on above: Order Comment: Speci men Type: BLOOD SPECIMENOrdering Facility: [facility] Address: [address] [place] [address] Performed By: #### 2 4321-2 ####[facility] [id number] [place] [address] [place] CALCULI ANALYSISon 3 Calculus analysis [Interp] Normal [facility] Comment on above: Order Comment: Speci men Type: CALCULUS SPECIMENOrdering Facility: [facility] Address: [address] [place] [address] Result Comment: This test was developed and its performance characteristics determined by [facility]'s [facility] Pathology and Laboratory Medicine [place] ([facility]ATIONPLMI). It has not been cleared or approved by the FDA. [facility] is regulated under CLIA as qualified to perform high-complexity testing. This test is used for clinical purposes. It should not be regarded as investigational or for research. Performed By: #### C SA ####[facility] [id number] [address] OF [place] CALCULUS COLOR BEIGE Normal [facility] Comment on above: Order Comment: Speci men Type: CALCULUS SPECIMENOrdering Facility: [facility] Address: [address] [place] [address] Performed By: #### C SA ####[facility] [id number] [address] [place] CALCULUS COMPOSITION 1 90% Calcium Phosphate Normal [facility] Comment on above: Order Comment: Speci men Type: CALCULUS SPECIMENOrdering Facility: [facility] Address: [address] [place] [address] Performed By: #### C SA ####[facility] [id number] [address] [place] CALCULUS COMPOSITION 2 10% Minor Components Normal [facility] Comment on above: Order Comment: Speci men Type: CALCULUS SPECIMENOrdering Facility: [facility] Address: [address] [place] [address] Performed By: #### C SA ####[facility] [id number] [address] [place] CALCULUS SIZE AND WT Multiple pieces. 1.3581 GRAMS Normal [facility] Comment on above: Order Comment: Speci men Type: CALCULUS SPECIMENOrdering Facility: [facility] Address: [address] [place] [address] Performed By: #### C SA ####[facility] [id number] [address] [place] CALCULUS TYPE Calculus, CALCULI/CALCULUS Normal [facility] Comment on above: Order Comment: Speci men Type: CALCULUS SPECIMENOrdering Facility: [facility] Address: [address] Performed By: #### C SA ####[facility] [id number] [address] [place] CBC panel Auto (Bld)on 08-09 Erythrocyte distribution width (RBC) [Ratio] 13.5 % Normal 11.5-15.0 [facility] Comment on above: Order Comment: Speci men Type: BLOOD SPECIMENOrdering Facility: [facility] Address: [address] Performed By: #### 5 8410-2 ####[facility] [id number] [address] [place] Hematocrit (Bld) [Volume fraction] 31.1 % Low 39.0-51.0 [facility] Comment on above: Order Comment: Speci men Type: BLOOD SPECIMENOrdering Facility: [facility] Address: [address] Performed By: #### 5 8410-2 ####[facility] [id number] [address] [place] Hemoglobin (Bld) [Mass/Vol] 9.7 g/dL Low 13.0-17.0 [facility] Comment on above: Order Comment: Speci men Type: BLOOD SPECIMENOrdering Facility: [facility] Address: [address] [place] [address] Performed By: #### 5 8410-2 ####[facility] [id number] [place] [address] [place] MCH (RBC) [Entitic mass] 27.9 pg Normal 26.0-34.0 [facility] Comment on above: Order Comment: Speci men Type: BLOOD SPECIMENOrdering Facility: [facility] Address: [address] Performed By: #### 5 8410-2 ####[facility] [id number] [place] [address] [place] MCHC (RBC) [Mass/Vol] 31.2 g/dL Normal 30.5-36.0 [facility] Comment on above: Order Comment: Speci men Type: BLOOD SPECIMENOrdering Facility: [facility] Address: [address] [place] [address] Performed By: #### 5 8410-2 ####[facility] [id number] [place] [address] [place] MCV (RBC) [Entitic vol] 89.4 fL Normal 80.0-100.0 [facility] Comment on above: Order Comment: Speci men Type: BLOOD SPECIMENOrdering Facility: [facility] Address: [address] [place] [address] Performed By: #### 5 8410-2 ####[facility] [id number] [place] [address] [place] Nucleated RBC (Bld) [#/Vol] 10*3/uL Normal <0.01 [facility] Comment on above: Order Comment: Speci men Type: BLOOD SPECIMENOrdering Facility: [facility] Address: [address] [place], [place] [address] Performed By: #### 5 8410-2 ####[facility] [id number] [place] [address] [place] Platelet mean volume (Bld) [Entitic vol] 9.7 fL Normal 9.0-12.7 [facility] Comment on above: Order Comment: Speci men Type: BLOOD SPECIMENOrdering Facility: [facility] Address: [address] [place], [place] [address] Performed By: #### 5 8410-2 ####[facility] [id number] [place] [address] [place] Platelets (Bld) [#/Vol] 258 10*3/uL Normal 150-400 [facility] Comment on above: Order Comment: Speci men Type: BLOOD SPECIMENOrdering Facility: [facility] Address: [address] [place], [place] [address] Performed By: #### 5 8410-2 ####[facility] [id number] [place] [address] [place] RBC (Bld) [#/Vol] 3.48 10*6/uL Low 4.20-6.00 [facility] Comment on above: Order Comment: Speci men Type: BLOOD SPECIMENOrdering Facility: [facility] Address: [address] [place] [address] Performed By: #### 5 8410-2 ####[facility] [id number] [place] [address] [place] WBC (Bld) [#/Vol] 3.10 10*3/uL Low 3.70-11.00 [facility] Comment on above: Order Comment: Speci men Type: BLOOD SPECIMENOrdering Facility: [facility] Address: [address] [place] [address] Performed By: #### 5 8410-2 ####[facility] [id number] [place] [address] [place] CNDSon 08-09-2022 CNDS Normal [facility] CONSULTon 08-09-2022 CONSULT Normal [facility] NURSING PROGon 08-09-2022 NURSING PROG Normal [facility] NURSING PROG Normal [facility] NURSING PROG Normal [facility] OPERATIVE NOon 08-09-2022 OPERATIVE NO Normal [facility] PT panel Coag (PPP)on 2022 INR Coag (PPP) [Relative time] 1.0 {INR} Normal 0.9-1.3 [facility] Comment on above: Order Comment: Speci men Type: BLOOD SPECIMENOrdering Facility: [facility] Address: [address] [place] [address] Result Comment: Kendra min K Antagonist (VKA) Therapeutic Range: INR 2 to 3 (Target INR of 2.5)Note: For patients treated with VKA drugs, such as warfarin, the [place] [employer] 2012 Guideline recommends [...] al. Chest 2012, 141:7S-47SNishelise RA, et al. [facility] 2017, 70: 252-289 Performed By: #### 3 4528-0, 69498-0 ####[facility] [id number] [place] [address] [place] PT Coag (PPP) [Time] 10.3 s Normal 9.7-13.0 [facility] Comment on above: Order Comment: Speci men Type: BLOOD SPECIMENOrdering Facility: [facility] Address: [address] [place] [address] Performed By: #### 3 4528-0, 57396-6 ####[facility] [id number] [address] [place] TYPE + SCREENon 08-09-2022 ABO O Normal [facility] Comment on above: Order Comment: Speci men Type: BLOOD SPECIMENOrdering Facility: [facility] Address: [address] [place] [address] Performed By: #### T SCR ####CC [facility] BLOOD BANKCLIA [id number] [place] [address] [place] HISTORICAL AB SCR STATUS Negative Normal [facility] Comment on above: Order Comment: Speci men Type: BLOOD SPECIMENOrdering Facility: [facility] Address: [address] [place] [address] Performed By: #### T SCR ####CC [facility] BLOOD BANKCLIA [id number] [address] Rh Nom (Bld) Positive Normal [facility] Comment on above: Order Comment: Speci men Type: BLOOD SPECIMENOrdering Facility: [facility] Address: [address] [place] [address] Performed By: #### T SCR ####CC [facility] BLOOD BANKIA [id number] [address] TYPE AND SCREEN EXPIRATION 08/12/2022 23:59 Normal [facility] Comment on above: Order Comment: Speci men Type: BLOOD SPECIMENOrdering Facility: [facility] Address: [address] [place] [address] Performed By: #### T SCR ####CC [facility] BLOOD BANKIA [id number] [address] [place] aPTT PPPon 08-09-2022 aPTT Coag (PPP) [Time] 28.2 s Normal 23.0-32.4 [facility] Comment on above: Order Comment: Speci men Type: BLOOD SPECIMENOrdering Facility: [facility] Address: [address] [place], [place] [address] Performed By: #### 3 4528-0, 42422-4 ####[facility] [id number] [address] [place] Basic metabolic 2000 panelon 08-08-2022 Anion gap [Moles/Vol] 9 mmol/L Normal 9-18 [facility] Comment on above: Order Comment: Speci men Type: BLOOD SPECIMENOrdering Facility: [facility] Address: [address] [place] [address] Performed By: #### 2 4321-2 ####[facility] [id number] [place] [address] [place] Calcium [Mass/Vol] 7.3 mg/dL Low 8.5-10.2 [facility] Comment on above: Order Comment: Speci men Type: BLOOD SPECIMENOrdering Facility: [facility] Address: [address] Performed By: #### 2 4321-2 ####[facility] [id number] [place] [address] [place] Chloride [Moles/Vol] 115 mmol/L High 97-105 [facility] Comment on above: Order Comment: Speci men Type: BLOOD SPECIMENOrdering Facility: [facility] Address: [address] [place] [address] Performed By: #### 2 4321-2 ####[facility] [id number] [place] [address] [place] CO2 [Moles/Vol] 19 mmol/L Low 22-30 [facility] Comment on above: Order Comment: Speci men Type: BLOOD SPECIMENOrdering Facility: [facility] Address: [address] [place] [address] Performed By: #### 2 4321-2 ####[facility] [id number] [place] [address] [place] Creatinine [Mass/Vol] 0.54 mg/dL Low 0.73-1.22 [facility] Comment on above: Order Comment: Speci men Type: BLOOD SPECIMENOrdering Facility: [facility] Address: [address] Performed By: #### 2 4321-2 ####[facility] [id number] [place] [address] [place] ESTIMATED GLOMERULAR FILTRATION RATE 109 mL/min/1.73m??? Normal >=60 [facility] Comment on above: Order Comment: Cierra cartwright Type: BLOOD SPECIMENOrdering Facility: [facility] Address: [address] [place] [address] Result Comment: Ignacia mated Glomerular Filtration Rate [...] actual GFR. Performed By: #### 2 4321-2 ####[facility] [id number] [place] [address] [place] Glucose [Mass/Vol] 74 mg/dL Normal 74-99 [facility] Comment on above: Order Comment: Cierra cartwright Type: BLOOD SPECIMENOrdering Facility: [facility] Address: [address] [place] [address] Result Comment: The [place] Diabetes Association (ADA) provides guidance for cutoff [...] Standards of Medical Care in Diabetes 2016, [place] [employer]. Diabetes Care. 2016.39(Suppl 1). Performed By: #### 2 4321-2 ####[facility] [id number] [place] [address] [place] Potassium [Moles/Vol] 3.3 mmol/L Low 3.7-5.1 [facility] Comment on above: Order Comment: Speci men Type: BLOOD SPECIMENOrdering Facility: [facility] Address: [address] Performed By: #### 2 4321-2 ####[facility] [id number] [place] [address] [place] Sodium [Moles/Vol] 143 mmol/L Normal 136-144 [facility] Comment on above: Order Comment: Speci men Type: BLOOD SPECIMENOrdering Facility: [facility] Address: [address] [place] [address] Performed By: #### 2 4321-2 ####[facility] [id number] [place] [address] [place] Urea nitrogen [Mass/Vol] 7 mg/dL Low 9-24 [facility] Comment on above: Order Comment: Speci men Type: BLOOD SPECIMENOrdering Facility: [facility] Address: [address] Performed By: #### 2 4321-2 ####[facility] [id number] [place] [address] [place] CBC panel Auto (Bld)on 08-08 Erythrocyte distribution width (RBC) [Ratio] 13.5 % Normal 11.5-15.0 [facility] Comment on above: Order Comment: Speci men Type: BLOOD SPECIMENOrdering Facility: [facility] Address: [address] Performed By: #### 5 8410-2 ####[facility] [id number] [place] [address] [place] Hematocrit (Bld) [Volume fraction] 31.7 % Low 39.0-51.0 [facility] Comment on above: Order Comment: Speci men Type: BLOOD SPECIMENOrdering Facility: [facility] Address: [address] Performed By: #### 5 8410-2 ####[facility] [id number] [place] [address] [place] Hemoglobin (Bld) [Mass/Vol] 9.9 g/dL Low 13.0-17.0 [facility] Comment on above: Order Comment: Speci men Type: BLOOD SPECIMENOrdering Facility: [facility] Address: [address] [place] [address] Performed By: #### 5 8410-2 ####[facility] [id number] [place] [address] [place] MCH (RBC) [Entitic mass] 27.9 pg Normal 26.0-34.0 [facility] Comment on above: Order Comment: Speci men Type: BLOOD SPECIMENOrdering Facility: [facility] Address: [address] [place] [address] Performed By: #### 5 8410-2 ####[facility] [id number] [address] STATES OF [facility] MCHC (RBC) [Mass/Vol] 31.2 g/dL Normal 30.5-36.0 [facility] Comment on above: Order Comment: Speci men Type: BLOOD SPECIMENOrdering Facility: [facility] Address: [address] [place] [address] Performed By: #### 5 8410-2 ####[facility] [id number] [address] [place] MCV (RBC) [Entitic vol] 89.3 fL Normal 80.0-100.[address] [facility] Comment on above: Order Comment: Speci men Type: BLOOD SPECIMENOrdering Facility: [facility] Address: [address] [place] [address] Performed By: #### 5 8410-2 ####[facility] [id number] [place] [address] [place] Nucleated RBC (Bld) [#/Vol] 10*3/uL Normal <0.01 [facility] Comment on above: Order Comment: Speci men Type: BLOOD SPECIMENOrdering Facility: [facility] Address: [address] [place] [address] Performed By: #### 5 8410-2 ####[facility] [id number] [place] [address] [place] Platelet mean volume (Bld) [Entitic vol] 9.5 fL Normal 9.0-12.7 [facility] Comment on above: Order Comment: Speci men Type: BLOOD SPECIMENOrdering Facility: [facility] Address: [address] [place] [address] Performed By: #### 5 8410-2 ####[facility] [id number] [place] [address] [place] Platelets (Bld) [#/Vol] 268 10*3/uL Normal 150-400 [facility] Comment on above: Order Comment: Speci men Type: BLOOD SPECIMENOrdering Facility: [facility] Address: [address] [place] [address] Performed By: #### 5 8410-2 ####[facility] [id number] [place] [address] [place] RBC (Bld) [#/Vol] 3.55 10*6/uL Low 4.20-6.00 [facility] Comment on above: Order Comment: Speci men Type: BLOOD SPECIMENOrdering Facility: [facility] Address: [address] [place] [address] Performed By: #### 5 8410-2 ####[facility] [id number] [place] [address] [place] WBC (Bld) [#/Vol] 2.90 10*3/uL Low 3.70-11.00 [facility] Comment on above: Order Comment: Speci men Type: BLOOD SPECIMENOrdering Facility: [facility] Address: [address] [place] [address] Performed By: #### 5 8410-2 ####[facility] [id number] [place] [address] [place] NURSING PROGon 08-08-2022 NURSING PROG Normal [facility] CBC W Auto Differential pane l (Bld)on 08-07-2022 Basophils (Bld) [#/Vol] 0.07 10*3/uL Normal <0.11 [facility] Comment on above: Order Comment: Speci men Type: BLOOD SPECIMENOrdering Facility: [facility] Address: [address] [place] [address] Performed By: #### 5 7021-8 ####[facility] [id number] [place] [address] [place] Basophils/100 WBC (Bld) 1.4 % Normal [facility] Comment on above: Order Comment: Speci men Type: BLOOD SPECIMENOrdering Facility: [facility] Address: [address] [place] [address] Performed By: #### 5 7021-8 ####[facility] [id number] [place] [address] [place] Differential cell count method Nom (Bld) Auto Normal [facility] Comment on above: Order Comment: Speci men Type: BLOOD SPECIMENOrdering Facility: [facility] Address: [address] [place] [address] Performed By: #### 5 7021-8 ####[facility] [id number] [place] [address] [place] Eosinophils (Bld) [#/Vol] 0.15 10*3/uL Normal <0.46 [facility] Comment on above: Order Comment: Speci men Type: BLOOD SPECIMENOrdering Facility: [facility] Address: [address] [place] [address] Performed By: #### 5 7021-8 ####[facility] [id number] [place] [address] [place] Eosinophils/100 WBC (Bld) 3.1 % Normal [facility] Comment on above: Order Comment: Speci men Type: BLOOD SPECIMENOrdering Facility: [facility] Address: [address] [place] [address] Performed By: #### 5 7021-8 ####[facility] [id number] [place] [address] [place] Erythrocyte distribution width (RBC) [Ratio] 13.9 % Normal 11.5-15.0 [facility] Comment on above: Order Comment: Speci men Type: BLOOD SPECIMENOrdering Facility: [facility] Address: [address] [place] [address] Performed By: #### 5 7021-8 ####[facility] [id number] [place] [address] [place] Hematocrit (Bld) [Volume fraction] 34.2 % Low 39.0-51.0 [facility] Comment on above: Order Comment: Speci men Type: BLOOD SPECIMENOrdering Facility: [facility] Address: [address] [place] [address] Performed By: #### 5 7021-8 ####[facility] [id number] [place] [address] [place] Hemoglobin (Bld) [Mass/Vol] 10.6 g/dL Low 13.0-17.0 [facility] Comment on above: Order Comment: Speci men Type: BLOOD SPECIMENOrdering Facility: [facility] Address: [address] [place] [address] Performed By: #### 5 7021-8 ####[facility] [id number] [place] Immature granulocytes (Bld) [#/Vol] 0.03 10*3/uL Normal <0.10 [facility] Comment on above: Order Comment: Speci men Type: BLOOD SPECIMENOrdering Facility: [facility] Address: [address] [place] [address] Performed By: #### 5 7021-8 ####[facility] [id number] [address] Immature granulocytes/100 WBC (Bld) 0.6 % Normal [facility] Comment on above: Order Comment: Speci men Type: BLOOD SPECIMENOrdering Facility: [facility] Address: [address] [place] [address] Performed By: #### 5 7021-8 ####[facility] [id number] [place] [address] [place] Lymphocytes (Bld) [#/Vol] 1.73 10*3/uL Normal 1.00-4.00 [facility] Comment on above: Order Comment: Speci men Type: BLOOD SPECIMENOrdering Facility: [facility] Address: [address] [place] [address] Performed By: #### 5 7021-8 ####[facility] [id number] [address] [place] Lymphocytes/100 WBC (Bld) 35.4 % Normal [facility] Comment on above: Order Comment: Speci men Type: BLOOD SPECIMENOrdering Facility: [facility] Address: [address] [place] [address] Performed By: #### 5 7021-8 ####[facility] [id number] [place] [address] [place] MCH (RBC) [Entitic mass] 28.2 pg Normal 26.0-34.0 [facility] Comment on above: Order Comment: Speci men Type: BLOOD SPECIMENOrdering Facility: [facility] Address: [address] Performed By: #### 5 7021-8 ####[facility] [id number] [address] [place] MCHC (RBC) [Mass/Vol] 31.0 g/dL Normal 30.5-36.0 [facility] Comment on above: Order Comment: Speci men Type: BLOOD SPECIMENOrdering Facility: [facility] Address: [address] Performed By: #### 5 7021-8 ####[facility] [id number] [place] [address] [place] MCV (RBC) [Entitic vol] 91.0 fL Normal 80.0-100.[address] [facility] Comment on above: Order Comment: Speci men Type: BLOOD SPECIMENOrdering Facility: [facility] Address: [address] Performed By: #### 5 7021-8 ####[facility] [id number] [place] [address] [place] Monocytes (Bld) [#/Vol] 0.57 10*3/uL Normal <0.87 [facility] Comment on above: Order Comment: Speci men Type: BLOOD SPECIMENOrdering Facility: [facility] Address: [address] [place] [address] Performed By: #### 5 7021-8 ####[facility] [id number] [address] [place] Monocytes/100 WBC (Bld) 11.7 % Normal [facility] Comment on above: Order Comment: Speci men Type: BLOOD SPECIMENOrdering Facility: [facility] Address: [address] Performed By: #### 5 7021-8 ####[facility] [id number] [place] [address] [place] Neutrophils (Bld) [#/Vol] 2.34 10*3/uL Normal 1.45-7.50 [facility] Comment on above: Order Comment: Speci men Type: BLOOD SPECIMENOrdering Facility: [facility] Address: [address] [place] [address] Performed By: #### 5 7021-8 ####[facility] [id number] [place] [address] [place] Neutrophils/100 WBC (Bld) 47.8 % Normal [facility] Comment on above: Order Comment: Speci men Type: BLOOD SPECIMENOrdering Facility: [facility] Address: [address] [place] [address] Performed By: #### 5 7021-8 ####[facility] [id number] [place] [address] [place] Nucleated RBC (Bld) [#/Vol] 10*3/uL Normal <0.01 [facility] Comment on above: Order Comment: Speci men Type: BLOOD SPECIMENOrdering Facility: [facility] Address: [address] [place] [address] Performed By: #### 5 7021-8 ####[facility] [id number] [place] [address] [place] Nucleated RBC/100 WBC (Bld) [Ratio] 0.0 /100 WBC Normal [facility] Comment on above: Order Comment: Speci men Type: BLOOD SPECIMENOrdering Facility: [facility] Address: [address] [place] [address] Performed By: #### 5 7021-8 ####[facility] [id number] [place] [address] [place] Platelet mean volume (Bld) [Entitic vol] 9.1 fL Normal 9.0-12.7 [facility] Comment on above: Order Comment: Speci men Type: BLOOD SPECIMENOrdering Facility: [facility] Address: [address] [place] [address] Performed By: #### 5 7021-8 ####[facility] [id number] [place] [address] [place] Platelets (Bld) [#/Vol] 280 10*3/uL Normal 150-400 [facility] Comment on above: Order Comment: Speci men Type: BLOOD SPECIMENOrdering Facility: [facility] Address: [address] Performed By: #### 5 7021-8 ####[facility] [id number] [place] [address] [place] RBC (Bld) [#/Vol] 3.76 10*6/uL Low 4.20-6.00 [facility] Comment on above: Order Comment: Speci men Type: BLOOD SPECIMENOrdering Facility: [facility] Address: [address] Performed By: #### 5 7021-8 ####[facility] [id number] [place] [address] [place] WBC (Bld) [#/Vol] 4.89 10*3/uL Normal 3.70-11.00 [facility] Comment on above: Order Comment: Speci men Type: BLOOD SPECIMENOrdering Facility: [facility] Address: [address] Performed By: #### 5 7021-8 ####[facility] [id number] [place] [address] [place] CONSULTon 08-07-2022 CONSULT Normal [facility] Comprehensive metabolic 2000 panelon 08-07-2022 Albumin [Mass/Vol] 3.2 g/dL Low 3.9-4.9 [facility] Comment on above: Order Comment: Speci men Type: BLOOD SPECIMENOrdering Facility: [facility] Address: [address] Performed By: #### 2 4323-8 ####[facility] [id number] [place] [address] [place] ALP [Catalytic activity/Vol] 94 U/L Normal 38-113 [facility] Comment on above: Order Comment: Speci men Type: BLOOD SPECIMENOrdering Facility: [facility] Address: [address] Performed By: #### 2 4323-8 ####[facility] [id number] [place] [address] [place] ALT [Catalytic activity/Vol] 12 U/L Normal 10-54 [facility] Comment on above: Order Comment: Speci men Type: BLOOD SPECIMENOrdering Facility: [facility] Address: [address] Performed By: #### 2 4323-8 ####[facility] [id number] [place] [address] [place] Anion gap [Moles/Vol] 10 mmol/L Normal 9-18 [facility] Comment on above: Order Comment: Speci men Type: BLOOD SPECIMENOrdering Facility: [facility] Address: [address] [place] [address] Performed By: #### 2 4323-8 ####[facility] [id number] [place] [address] [place] AST [Catalytic activity/Vol] 15 U/L Normal 14-40 [facility] Comment on above: Order Comment: Speci men Type: BLOOD SPECIMENOrdering Facility: [facility] Address: [address] Performed By: #### 2 4323-8 ####[facility] [id number] [place] [address] [place] Bilirubin [Mass/Vol] 0.2 mg/dL Normal 0.2-1.3 [facility] Comment on above: Order Comment: Speci men Type: BLOOD SPECIMENOrdering Facility: [facility] Address: [address] [place] [address] Performed By: #### 2 4323-8 ####[facility] [id number] [place] [address] [place] Calcium [Mass/Vol] 9.1 mg/dL Normal 8.5-10.2 [facility] Comment on above: Order Comment: Speci men Type: BLOOD SPECIMENOrdering Facility: [facility] Address: [address] [place] [address] Performed By: #### 2 4323-8 ####[facility] [id number] [place] [address] [place] Chloride [Moles/Vol] 106 mmol/L High 97-105 [facility] Comment on above: Order Comment: Speci men Type: BLOOD SPECIMENOrdering Facility: [facility] Address: [address] [place] [address] Performed By: #### 2 4323-8 ####[facility] [id number] [place] [address] [place] CO2 [Moles/Vol] 24 mmol/L Normal 22-30 [facility] Comment on above: Order Comment: Speci men Type: BLOOD SPECIMENOrdering Facility: [facility] Address: [address] [place] [address] Performed By: #### 2 4323-8 ####[facility] [id number] [place] [address] [place] Creatinine [Mass/Vol] 0.81 mg/dL Normal 0.73-1.22 [facility] Comment on above: Order Comment: Guadalupecarter gabbie Type: BLOOD SPECIMENOrdering Facility: [facility] Address: [address] [place] [address] Performed By: #### 2 4323-8 ####[facility] [id number] [place] [address] [place] ESTIMATED GLOMERULAR FILTRATION RATE 97 mL/min/1.73m??? Normal >=60 [facility] Comment on above: Order Comment: Cierra men Type: BLOOD SPECIMENOrdering Facility: [facility] Address: [address] [place] [address] Result Comment: Ignacia mated Glomerular Filtration Rate [...] actual GFR. Performed By: #### 2 4323-8 ####[facility] [id number] [place] [address] [place] Glucose [Mass/Vol] 100 mg/dL High 74-99 [facility] Comment on above: Order Comment: Cierra cartwright Type: BLOOD SPECIMENOrdering Facility: [facility] Address: [address] [place] [address] Result Comment: The [place] [employer] (ADA) provides guidance for cutoff [...] Standards of Medical Care in Diabetes 2016, [place] [employer]. Diabetes Care. 2016.39(Suppl 1). Performed By: #### 2 4323-8 ####[facility] [id number] [place] [address] [place] Potassium [Moles/Vol] 3.7 mmol/L Normal 3.7-5.1 [facility] Comment on above: Order Comment: Speci men Type: BLOOD SPECIMENOrdering Facility: [facility] Address: [address] [place] [address] Performed By: #### 2 4323-8 ####[facility] [id number] [place] [address] [place] Protein [Mass/Vol] 7.0 g/dL Normal 6.3-8.0 [facility] Comment on above: Order Comment: Speci men Type: BLOOD SPECIMENOrdering Facility: [facility] Address: [address] [place] [address] Performed By: #### 2 4323-8 ####[facility] [id number] [place] [address] [place] Sodium [Moles/Vol] 140 mmol/L Normal 136-144 [facility] Comment on above: Order Comment: Speci men Type: BLOOD SPECIMENOrdering Facility: [facility] Address: [address] [place] [address] Performed By: #### 2 4323-8 ####[facility] [id number] [place] [address] [place] Urea nitrogen [Mass/Vol] 12 mg/dL Normal 9-24 [facility] Comment on above: Order Comment: Speci men Type: BLOOD SPECIMENOrdering Facility: [facility] Address: [address] [place] [address] Performed By: #### 2 4323-8 ####[facility] [id number] [place] [address] [place] ED PROV NOTEon 08-07-2022 ED PROV NOTE Normal [facility] HISTORY PHYSICALon HISTORY PHYSICAL Normal [facility] PT panel Coag (PPP)on 2022 INR Coag (PPP) [Relative time] 0.9 {INR} Normal 0.9-1.3 [facility] Comment on above: Order Comment: Speci men Type: BLOOD SPECIMENOrdering Facility: [facility] Address: [address] [place] [id number] Result Comment: Kendra min K Antagonist (VKA) Therapeutic Range: INR 2 to 3 (Target INR of 2.5)Note: For patients treated with VKA drugs, such as warfarin, the [place] [employer] 2012 Guideline recommends [...] al. Chest 2012, 141:7S-47SNishimura RA, et al. [facility] 2017, 70: 252-289 Performed By: #### 3 4528-0 ####[facility] [id number] [place] [id number] [place] PT Coag (PPP) [Time] 9.8 s Normal 9.7-13.0 [facility] Comment on above: Order Comment: Speci men Type: BLOOD SPECIMENOrdering Facility: [facility] Address: [place] [address] Performed By: #### 3 4528-0 ####[facility] [id number] [place] [id number] [place] TYPE + SCREENon 08-07-2022 ABO O Normal [facility] Comment on above: Order Comment: Speci men Type: BLOOD SPECIMENOrdering Facility: [facility] Address: [address] [place] [address] Performed By: #### T SCR ####[facility] B[facility] BANKCLIA [id number] 03 [address] HISTORICAL AB SCR STATUS Negative Normal [facility] Comment on above: Order Comment: Speci men Type: BLOOD SPECIMENOrdering Facility: [facility] Address: [address] [place] [address] Performed By: #### T SCR ####CC [facility] BLOOD BANKIA [id number] [address] [place] Rh Nom (Bld) Positive Normal [facility] Comment on above: Order Comment: Speci men Type: BLOOD SPECIMENOrdering Facility: [facility] Address: [address] [place] [address] Performed By: #### T SCR ####CC [facility] BLOOD BANKCLIA [id number] [address] [place] TYPE AND SCREEN EXPIRATION 08/09/2022 23:59 Normal [facility] Comment on above: Order Comment: Speci men Type: BLOOD SPECIMENOrdering Facility: [facility] Address: [address] [place] [address] Performed By: #### T SCR ####CC [facility] BLOOD BANKCLIA [id number] [address] [place] Urinalysis complete panel (U )on 08-07-2022 Bacteria LM.HPF (Urine sed) [#/Area] Rare Abnormal None Seen [facility] Comment on above: Order Comment: Speci men Type: URINE SPECIMENOrdering Facility: [facility] Address: [address] [place] [address] Performed By: #### 2 4356-8 ####[facility] [id number] [place] [address] [place] Bilirubin Ql (U) Negative Normal Negative [facility] Comment on above: Order Comment: Speci men Type: URINE SPECIMENOrdering Facility: [facility] Address: [address] [address] Performed By: #### 2 4356-8 ####[facility] [id number] [place] [address] [place] Clarity (Unsp spec) Cloudy Abnormal Clear [facility] Comment on above: Order Comment: Speci men Type: URINE SPECIMENOrdering Facility: [facility] Address: [address] [address] Performed By: #### 2 4356-8 ####[facility] [id number] [place] [address] [place] [facility] Color (U) Light Yellow Normal Yellow [facility] Comment on above: Order Comment: Speci men Type: URINE SPECIMENOrdering Facility: [facility] Address: [address] Performed By: #### 2 4356-8 ####[facility] [id number] [place] [address] [place] Epithelial cells LM.HPF (Urine sed) [#/Area] Few Normal [facility] Comment on above: Order Comment: Speci men Type: URINE SPECIMENOrdering Facility: [facility] Address: [address] Performed By: #### 2 4356-8 ####[facility] [id number] [place] [address] [place] Glucose Test strip (U) [Mass/Vol] Negative Normal Trace, Negative [facility] Comment on above: Order Comment: Speci men Type: URINE SPECIMENOrdering Facility: [facility] Address: [address] Performed By: #### 2 4356-8 ####[facility] [id number] [place] [address] [place] Hemoglobin Ql (U) 3+ Abnormal Negative, Trace [facility] Comment on above: Order Comment: Speci men Type: URINE SPECIMENOrdering Facility: [facility] Address: [address] [place] [address] Performed By: #### 2 4356-8 ####[facility] [id number] [place] [address] [place] Ketones Ql (U) Negative Normal Trace, Negative [facility] Comment on above: Order Comment: Speci men Type: URINE SPECIMENOrdering Facility: [facility] Address: [address] [place] [address] Performed By: #### 2 4356-8 ####[facility] [id number] [place] [address] [place] Leukocyte esterase Test strip Ql (U) 75 Arnulfo/uL Abnormal Negative, 25 Arnulfo/uL [facility] Comment on above: Order Comment: Speci men Type: URINE SPECIMENOrdering Facility: [facility] Address: [address] [place] [address] Performed By: #### 2 4356-8 ####[facility] [id number] [place] [address] [place] Nitrite Ql (U) Negative Normal Negative [facility] Comment on above: Order Comment: Speci men Type: URINE SPECIMENOrdering Facility: [facility] Address: [address] [place] [address] Performed By: #### 2 4356-8 ####[facility] [id number] [place] [address] [place] pH (U) 7.0 [pH] Normal 5.0-8.0 [facility] Comment on above: Order Comment: Speci men Type: URINE SPECIMENOrdering Facility: [facility] Address: [address] [place] [address] Performed By: #### 2 4356-8 ####[facility] [id number] [address] Protein (U) [Mass/Vol] 1+ Abnormal Trace , Negative [facility] Comment on above: Order Comment: Speci men Type: URINE SPECIMENOrdering Facility: [facility] Address: [address] [place] [address] Performed By: #### 2 4356-8 ####[facility] [id number] [place] [address] [place] RBC LM.HPF (Urine sed) [#/Area] /[HPF] Abnormal 0-3 /HPF [facility] Comment on above: Order Comment: Speci men Type: URINE SPECIMENOrdering Facility: [facility] Address: [address] [place] [address] Performed By: #### 2 4356-8 ####[facility] [id number] [place] [address] [place] Specific gravity (U) [Rel density] 1.015 Normal 1.005-1.030 [facility] Comment on above: Order Comment: Speci men Type: URINE SPECIMENOrdering Facility: [facility] Address: [address] [place], [place] [id number] Performed By: #### 2 4356-8 ####[facility] [id number] [address] [place] Urobilinogen Ql (U) Negative Normal Negative [facility] Comment on above: Order Comment: Speci men Type: URINE SPECIMENOrdering Facility: [facility] Address: [address] [place] [address] Performed By: #### 2 4356-8 ####[facility] [id number] [address] WBC LM.HPF (Urine sed) [#/Area] 6-10 /HPF Abnormal 0-5 /HPF [facility] Comment on above: Order Comment: Speci men Type: URINE SPECIMENOrdering Facility: [facility] Address: [address] [place] [address] Performed By: #### 2 4356-8 ####[facility] [id number] [place] [id number] [facility] ED NOTEon 08-06-2022 ED NOTE HNO ID: [id number] Author: Marielena Moss RN Service: ? Author Type: Registered Nurse Type: ED Notes Filed: 08/06/2022 9:59 PM Note Text: Bed: E1208 Expected date: 08/06/22 Expected time: 9:54 PM Means of arrival: Comments: EMS Normal [facility] BILIRUBIN TOTAL BLDon 2022 Bilirubin [Mass/Vol] 0.2 mg/dL 0.2 - 1 [facility] CBC W Auto Differential pane l (Bld)on 08-02-2022 Hematocrit (Bld) [Volume fraction] 34.1 % Abnormal 42 - 54 % [facility] Hemoglobin (Bld) [Mass/Vol] 10.7 g/dL Abnormal 14 - 18 g/dL [facility] Platelets (Bld) [#/Vol] 379 10*3/uL 150 - 450 K/uL [facility] WBC (Bld) [#/Vol] 4.9 10*3/uL 4.0 - 11.0 K/uL [facility] CREATININEon 08-02-2022 Creatinine [Mass/Vol] 0.92 mg/dL Normal 0.70-1.30 [facility] Comment on above: Performed By: #### R SPLUS #### [facility] [address] [place] [address] Dr. Cuba Weber EGFR-AF GUINEAN >60 Normal >=60 [facility] Comment on above: Performed By: #### R SPLUS #### [facility] [address] [place] [address] Dr. Cuba Weber EGFR-NON AF GUINEAN >60 Normal >=60 [facility] Comment on above: Performed By: #### R SPLUS #### [facility] [address] [place], [place] [address] Dr. Cuba Weber Comprehensive metabolic 2000 panelon 08-02-2022 ALP [Catalytic activity/Vol] 73 U/L 46 - 116 [facility] ALT [Catalytic activity/Vol] 19 U/L 16 - 63 [facility] AST [Catalytic activity/Vol] 21 U/L 15 - 37 [facility] Creatinine [Mass/Vol] 0.92 mg/dL 0.7 - 1.3 MG/DL [facility] HEMOGRAM AND PLATELon 2022 Hematocrit (Bld) [Volume fraction] 34.1 % Critically low 42.0-54.0 [facility] Comment on above: Performed By: #### H H ####[facility] [address] [address]Dr[address] Cuba Weber Hemoglobin (Bld) [Mass/Vol] 10.7 g/dL Critically low 14.0-18.0 [facility] Comment on above: Performed By: #### H H ####[facility] [id number] [id number][address] Cuba Weber MCH (RBC) [Entitic mass] 28.3 pg Normal 25.9-34.0 [facility] Comment on above: Performed By: #### H H ####[facility] [address] [place] [id number]. [place] Weber MCHC (RBC) [Mass/Vol] 31.4 g/dL Normal 29.9-35.2 [facility] Comment on above: Performed By: #### H H ####[facility] [address] [id number]. [place] Weber MCV (RBC) [Entitic vol] 90.2 fL Normal 80.0-94.0 [facility] Comment on above: Performed By: #### H H ####[facility] [address] [place] [id number]. Cuba Weber PLT 379 103/ul Normal 150-450 [facility] Comment on above: Performed By: #### H H ####[facility] [address] [place], [place] [address]OyDr. Cuba Weber RBC 3.78 106/ul Critically low 4.70-6.10 [facility] Comment on above: Performed By: #### H H ####[facility] [address] [place], [place] [address]IyDr. Cuba Weber WBC 4.9 103/ul Normal 4.0-11.0 [facility] Comment on above: Performed By: #### H H ####[facility] [address] [place], [place] [address]EpGlory Weber LIVER PROFILEon 08-02-2022 Albumin [Mass/Vol] 2.6 g/dL Critically low 3.4-5.0 [facility] Comment on above: Performed By: #### R SPLUS #### [facility] [address] [address] [address] Cuba Weber Albumin/Globulin [Mass ratio] 0.6 {ratio} Normal [facility] Comment on above: Performed By: #### R SPLUS #### [facility] [address] [address] [address] [place] Weber ALP [Catalytic activity/Vol] 73 U/L Normal 46-116 [facility] Comment on above: Performed By: #### R SPLUS #### [facility] [address] [address] [address] Cuba Weber ALT [Catalytic activity/Vol] 19 U/L Normal 16-63 [facility] Comment on above: Performed By: #### R SPLUS #### [facility] [address] [address] [address] Cuba Weber AST [Catalytic activity/Vol] 21 U/L Normal 15-37 [facility] Comment on above: Performed By: #### R SPLUS #### [facility] [address] [address] [address] Cuba Weber BILI, CONJUGATED 0.1 mg/dL Normal 0.0-0.2 [facility] Comment on above: Performed By: #### R SPLUS #### [facility] [address] [address] [address] Cuba Weber Bilirubin [Mass/Vol] 0.2 mg/dL Normal 0.2-1.0 [facility] Comment on above: Performed By: #### R SPLUS #### [facility] [address] [address] [address] Cuba Weber Globulin (S) [Mass/Vol] 4.6 g/dL Normal [facility] Comment on above: Performed By: #### R SPLUS #### [facility] [address] [place] [address] Dr. [place] Weber Protein [Mass/Vol] 7.2 g/dL Normal 6.4-8.2 [facility] Comment on above: Performed By: #### R SPLUS #### [facility] [address] [place] [address] Dr. Cuba Weber STOOL CULTUREon 07-24-2022 Campylobacter Culture Final report Normal [facility] Comment on above: Performed By: #### L ACT #### [facility] [address] [place] [address] Dr. Cuba Weber E coli Shiga Toxin EIA Negative Normal Negative [facility] Comment on above: Performed By: #### L ACT #### [facility] [address] [place] [address] Dr. Cuba Weber Result 1 Comment Normal [facility] Comment on above: Result Comment: No S almonella or Shigella recovered. Performed By: #### L ACT #### [facility] [address] [place] [address] Dr. [place] Weber Result Comment: No C ampylobacter species isolated. Salmonella/Shigella Screen Final report Normal [facility] Comment on above: Performed By: #### L ACT #### [facility] [address] [place] [address] Dr. [place] Weber CULTURE BLOODon 07-22-2022 Microscopic [...] Trimethoprim/Sulfame thoxazole <=20 S F Normal [facility] Comment on above: Performed By: #### C BC #### [facility] [address] [place] [address] Dr. [place] Weber CULTURE URINEon 07-22-2022 CULTURE [...] Trimethoprim/Sulfame thoxazole >=320 R F Normal [facility] Comment on above: Performed By: #### C BC #### [facility] [address] [place] [address] Dr. [place] Weber CBC AUTO DIFFon 07-21-2022 BASO # 0.1 103/ul Normal 0.0-0.1 [facility] Comment on above: Performed By: #### C BC #### [facility] [address] [place] [address] Dr. [place] Weber Basophils/100 WBC (Bld) 0.3 % Normal 0.2-2.0 [facility] Comment on above: Performed By: #### C BC #### [facility] [address] [address] [address] [place] Weber EO # 0.3 103/ul Normal 0.0-0.7 [facility] Comment on above: Performed By: #### C BC #### [facility] [address] [place] [address] Dr. [place] Weber Eosinophils/100 WBC (Bld) 1.4 % Normal 0.9-7.0 [facility] Comment on above: Performed By: #### C BC #### [facility] [address] [place] [address] Dr. [place] Weber Erythrocyte distribution width (RBC) [Ratio] 14.9 % Normal 11.0-15.0 [facility] Comment on above: Performed By: #### C BC #### [facility] [address] [place] [address] Dr. [place] Weber Hematocrit (Bld) [Volume fraction] 30.0 % Critically low 42.0-54.0 [facility] Comment on above: Performed By: #### C BC #### [facility] [address] [place] [address] Dr. [place] Weber Hemoglobin (Bld) [Mass/Vol] 10.1 g/dL Critically low 14.0-18.0 [facility] Comment on above: Performed By: #### C BC #### [facility] [address] [place] [address] Dr. [place] Weber IG # 2.09 10e3/ul Critically high 0.00-0.03 [facility] Comment on above: Performed By: #### C BC #### [facility] [address] [place] [address] Dr. [place] Weber IG % 11.5 % Critically high 0.0-0.5 [facility] Comment on above: Performed By: #### C BC #### [facility] [address] [place] [address] Dr. [place] Weber LYMPH # 0.4 103/ul Critically low 1.2-3.8 [facility] Comment on above: Performed By: #### C BC #### [facility] [address] [address] [address] [place] Weber Lymphocytes/100 WBC (Bld) 2.1 % Critically low 20.5-60.0 [facility] Comment on above: Performed By: #### C BC #### [facility] [address] [address] [address] [place] Weber MANUAL DIFF REQ NO Normal [facility] Comment on above: Performed By: #### C BC #### [facility] [address] [place] [address] Dr. [place] Weber MCH (RBC) [Entitic mass] 28.5 pg Normal 25.9-34.0 [facility] Comment on above: Performed By: #### C BC #### [facility] [address] [place] [address] Dr. [place] Weber MCHC (RBC) [Mass/Vol] 33.7 g/dL Normal 29.9-35.2 [facility] Comment on above: Performed By: #### C BC #### [facility] [address] [place] [address] Dr. [place] Weber MCV (RBC) [Entitic vol] 84.5 fL Normal 80.0-94.0 [facility] Comment on above: Performed By: #### C BC #### [facility] [address] [place] [address] Dr. [place] Weber MONO # 0.5 103/ul Normal 0.3-0.8 [facility] Comment on above: Performed By: #### C BC #### [facility] [address] [place] [address] Dr. [place] Weber Monocytes/100 WBC (Bld) 2.9 % Normal 1.7-12.0 [facility] Comment on above: Performed By: #### C BC #### [facility] [address] [place] [address] Dr. Cuba Weber NEUT # 14.9 103/ul Critically high 1.4-6.5 [facility] Comment on above: Performed By: #### C BC #### [facility] [address] [address] [address] [place] Weber Neutrophils/100 WBC (Bld) 81.8 % Critically high 43.0-75.0 [facility] Comment on above: Performed By: #### C BC #### [facility] [address] [address] [address] [place] Weber Platelet mean volume (Bld) [Entitic vol] 11.8 fL Normal 9.5-13.5 [facility] Comment on above: Performed By: #### C BC #### [facility] [address] [address] [address] [place] Weber PLT 74 103/ul Critically low 150-450 [facility] Comment on above: Performed By: #### C BC #### [facility] [address] [place] [address] Dr. [place] Weber RBC 3.55 106/ul Critically low 4.70-6.10 [facility] Comment on above: Performed By: #### C BC #### [facility] [address] [address] [address] [place] Weber WBC 18.2 103/ul Critically high 4.0-11.0 [facility] Comment on above: Performed By: #### C BC #### [facility] [address] [place] [address] Dr. [place] Weber MAGNESIUMon 07-21-2022 Magnesium [Mass/Vol] 2.0 mg/dL Normal 1.8-2.4 [facility] Comment on above: Performed By: #### R SPLUS #### [facility] [address] [place] [address] Dr. [place] Weber PROF 14(COMP METB)on 023 Albumin [Mass/Vol] 2.1 g/dL Critically low 3.4-5.0 [facility] Comment on above: Performed By: #### R SPLUS #### [facility] [address] [place] [address] Dr. [place] Weber Albumin/Globulin [Mass ratio] 0.6 {ratio} Normal [facility] Comment on above: Performed By: #### R SPLUS #### [facility] [address] [address] [address] [place] Weber ALP [Catalytic activity/Vol] 67 U/L Normal 46-116 [facility] Comment on above: Performed By: #### R SPLUS #### [facility] [address] [address] [address] [place] Weber ALT [Catalytic activity/Vol] 35 U/L Normal 16-63 [facility] Comment on above: Performed By: #### R SPLUS #### [facility] [address] [address] [address] [place] Weber Anion gap [Moles/Vol] 16.8 mmol/L Normal [facility] Comment on above: Performed By: #### R SPLUS #### [facility] [address] [address] [address] [place] Weber AST [Catalytic activity/Vol] 50 U/L Critically high 15-37 [facility] Comment on above: Performed By: #### R SPLUS #### [facility] [address] [address] [address] [place] Weber Bilirubin [Mass/Vol] 1.0 mg/dL Normal 0.2-1.0 [facility] Comment on above: Performed By: #### R SPLUS #### [facility] [address] [address] [address] [place] Weber Calcium [Mass/Vol] 8.2 mg/dL Critically low 8.5-10.1 [facility] Comment on above: Performed By: #### R SPLUS #### [facility] [address] [address] [address] Cuba Weber Chloride [Moles/Vol] 102 mmol/L Normal 98-107 [facility] Comment on above: Performed By: #### R SPLUS #### [facility] [address] [address] [address] [place] Weber CO2 [Moles/Vol] 18.4 mmol/L Critically low 21.0-32.0 [facility] Comment on above: Performed By: #### R SPLUS #### [facility] [address] [address] [address] [place] Weber Creatinine [Mass/Vol] 1.53 mg/dL Critically high 0.70-1.30 [facility] Comment on above: Performed By: #### R SPLUS #### [facility] [address] [address] [address] [place] Weber EGFR-AF GUINEAN 55 mL/min/1.73m2 Critically low >=60 [facility] Comment on above: Performed By: #### R SPLUS #### [facility] [address] [address] [address] [place] Weber EGFR-NON AF GUINEAN 46 mL/min/1.73m2 Critically low >=60 [facility] Comment on above: Performed By: #### R SPLUS #### [facility] [address] [address] [address] [place] Weber Globulin (S) [Mass/Vol] 3.7 g/dL Normal [facility] Comment on above: Performed By: #### R SPLUS #### [facility] [address] [address] [address] [place] Weber Glucose [Mass/Vol] 107 mg/dL Critically high 74-106 [facility] Comment on above: Performed By: #### R SPLUS #### [facility] [address] [address] [address] [place] Weber Potassium [Moles/Vol] 4.2 mmol/L Normal 3.5-5.1 [facility] Comment on above: Performed By: #### R SPLUS #### [facility] [address] [address] [address] [place] Weber Protein [Mass/Vol] 5.8 g/dL Critically low 6.4-8.2 [facility] Comment on above: Performed By: #### R SPLUS #### [facility] [address] [address] [address] [place] Weber Sodium [Moles/Vol] 133 mmol/L Critically low 136-145 [facility] Comment on above: Performed By: #### R SPLUS #### [facility] [address] [address] [address] [place] Weber Urea nitrogen [Mass/Vol] 27.0 mg/dL Critically high 7.0-18.0 [facility] Comment on above: Performed By: #### R SPLUS #### [facility] [address] [place] [address] Dr. [place] Weber Urea nitrogen/Creatinine [Mass ratio] 17.6 mg/mg Normal [facility] Comment on above: Performed By: #### R SPLUS #### [facility] [address] [place] [address] Dr. [place] Weber C. DIFF PCRon 07-20-2022 C. DIFFICILE PCR Negative Normal NEGATIVE [facility] Comment on above: Performed By: #### L ACT #### [facility] [address] [place] [address] Dr. [place] Weber CBC W MANUAL DIFFon 07-21-19 ANISOCYTOSIS 1+ Normal [facility] Comment on above: Performed By: #### C BCMAN #### [facility] [address] [place] [address] Dr. [place] Weber ATYPICAL LYMPH # Normal [facility] Comment on above: Performed By: #### C BCMAN #### [facility] [address] [place] [address] Dr. [place] Weber ATYPICAL LYMPH % Normal [facility] Comment on above: Performed By: #### C PETEYMAN #### [facility] [address] [place] [address] Dr. Cuba Weber BAND # 0.7 103/ul Critically high 0.0-0.3 [facility] Comment on above: Performed By: #### C BCMAN #### [facility] [address] [place] [address] Dr. [place] Weber BAND % 11 % Critically high 0-5 [facility] [facility] Comment on above: Performed By: #### C PETEYMAN #### [facility] [address] [place] [address] Dr. [place] Weber BASOM # 0.00 103/ul Normal 0.00-0.10 [facility] Comment on above: Performed By: #### C BCTERE #### [facility] [address] [place] [address] Dr. [place] Weber BASOM % 0.0 % Critically low 0.2-2.0 [facility] Comment on above: Performed By: #### C BCTERE #### [facility] [address] [place] [address] Dr. Cuba Weber BLAST # Normal [facility] Comment on above: Performed By: #### C BCTERE #### [facility] [address] [place] [address] Dr. Cuba Weber BLAST % Normal [facility] Comment on above: Performed By: #### C YAHIR #### [facility] [address] [place] [address] Dr. Cuba Weber CORRECTED WBC Normal 4.0-11.0 [facility] Comment on above: Performed By: #### C YAHIR #### [facility] [address] [place] [address] Dr. Cuba Weber EOS # 0.06 103/ul Normal 0.00-0.70 [facility] Comment on above: Performed By: #### C BCTERE #### [facility] [address] [place] [address] Dr. Cuba Weber EOS% 1.0 % Normal 0.9-7.0 [facility] Comment on above: Performed By: #### C YAHIR #### [facility] [address] [place] [address] Dr. Cuba Weber HCT 34.7 % Critically low 42.0-54.0 [facility] Comment on above: Performed By: #### C BCTERE #### [facility] [address] [place] [address] Dr. Cuba Weber HGB 11.7 g/dl Critically low 14.0-18.0 [facility] Comment on above: Performed By: #### C YAHIR #### [facility] [address] [place] [address] Dr. Cuba Weber LYMPHM # 0.48 103/ul Critically low 1.20-3.80 [facility] Comment on above: Performed By: #### C YAHIR #### [facility] [address] [place] [address] Dr. Cuba Weber LYMPHM% 8.0 % Critically low 20.5-60.0 [facility] Comment on above: Performed By: #### C YAHIR #### [facility] [address] [place] [address] Dr. Cuba Weber MCH 28.4 pg Normal 25.9-34.0 [facility] Comment on above: Performed By: #### C YAHIR #### [facility] [address] [place] [address] Dr. Cuba Weber MCHC 33.7 g/dl Normal 29.9-35.2 [facility] Comment on above: Performed By: #### C YAHIR #### [facility] [address] [place] [address] Dr. Cuba Weber MCV 84.2 fL Normal 80.0-94.0 [facility] Comment on above: Performed By: #### C YAHIR #### [facility] [address] [place] [address] Dr. Cuba Weber METAMYELOCYTE # Normal [facility] Comment on above: Performed By: #### C YAHIR #### [facility] [address] [place] [address] Dr. Cuba Weber METAMYELOCYTE % Normal [facility] Comment on above: Performed By: #### C YAHIR #### [facility] [address] [place] [address] Dr. Cuba Weber MONOM# 0.18 103/ul Critically low 0.30-0.80 [facility] Comment on above: Performed By: #### C YAHIR #### [facility] [address] [place] [address] Dr. Cuba Weber MONOM% 3.0 % Normal 1.7-12.0 [facility] Comment on above: Performed By: #### C YAHIR #### [facility] [address] [address] [address] Cuba Weber MPV 10.6 fL Normal 9.5-13.5 [facility] Comment on above: Performed By: #### C YAHIR #### [facility] [address] [place] [address] Dr. Cuba Weber MYELOCYTE # Normal [facility] Comment on above: Performed By: #### C YAHIR #### [facility] [address] [place] [address] Dr. Cuba Weber MYELOCYTE % Normal [facility] Comment on above: Performed By: #### C YAHIR #### [facility] [address] [place] [address] Dr. Cuba Weber NRBC Normal [facility] Comment on above: Performed By: #### C YAHIR #### [facility] [address] [place] [address] Dr. Cuba Weber PLT 80 103/ul Critically low 150-450 [facility] Comment on above: Performed By: #### C YAHIR #### [facility] [address] [place] [address] Dr. Cuba Weber RBC 4.12 106/ul Critically low 4.70-6.10 [facility] Comment on above: Performed By: #### C YAHIR #### [facility] [address] [place] [address] Dr. Cuba Weber RDW 14.9 % Normal 11.0-15.0 [facility] Comment on above: Performed By: #### C YAHIR #### [facility] [address] [place] [address] Dr. Cuba Weber SEG # 4.62 103/ul Normal 1.40-6.50 [facility] Comment on above: Performed By: #### C YAHIR #### [facility] [address] [place] [address] Dr. Cuba Weber SEG % 77.0 % Critically high 43.0-75.0 [facility] Comment on above: Performed By: #### C YAHIR #### [facility] [address] [place] [address] Dr. Cuba Weber WBC 6.0 103/ul Normal 4.0-11.0 [facility] Comment on above: Performed By: #### C BCMAN #### [facility] [address] [address] [address] Cuba Weber ATYPICAL LYMPH # Normal [facility] Comment on above: Performed By: #### L ACT #### [facility] [address] [address] [address] Cuba Weber ATYPICAL LYMPH % Normal [facility] Comment on above: Performed By: #### L ACT #### [facility] [address] [address] [address] Cuba Weber BAND # 1.9 103/ul Critically high 0.0-0.3 [facility] Comment on above: Performed By: #### L ACT #### [facility] [address] [place] [address] Dr. Cuba Weber BAND % 10 % Critically high 0-5 [facility] Comment on above: Performed By: #### L ACT #### [facility] [address] [place] [address] Dr. Cuba Weber BASOM # 0.00 103/ul Normal 0.00-0.10 [facility] Comment on above: Performed By: #### L ACT #### [facility] [address] [address] [address] Cuba Weber BASOM % 0.0 % Critically low 0.2-2.0 [facility] Comment on above: Performed By: #### L ACT #### [facility] [address] [address] [address] Cuba Weber BLAST # Normal [facility] Comment on above: Performed By: #### L ACT #### [facility] [address] [address] [address] Cuba Weber BLAST % Normal [facility] Comment on above: Performed By: #### L ACT #### [facility] [address] [address] [address] Cuba Weber CORRECTED WBC Normal 4.0-11.0 [facility] Comment on above: Performed By: #### L ACT #### [facility] [address] [address] [address] Cuba Weber EOS # 0.00 103/ul Normal 0.00-0.70 [facility] Comment on above: Performed By: #### L ACT #### [facility] [address] [address] [address] Cuba Weber EOS% 0.0 % Critically low 0.9-7.0 [facility] Comment on above: Performed By: #### L ACT #### [facility] [address] [address] [address] Cuba Weber HCT 31.9 % Critically low 42.0-54.0 [facility] Comment on above: Performed By: #### L ACT #### [facility] [address] [address] [address] Cuba Weber HGB 10.6 g/dl Critically low 14.0-18.0 [facility] Comment on above: Performed By: #### L ACT #### [facility] [address] [address] [address] Cuba Weber LYMPHM # 1.15 103/ul Critically low 1.20-3.80 [facility] Comment on above: Performed By: #### L ACT #### [facility] [address] [address] [address] Cuba Weber LYMPHM% 6.0 % Critically low 20.5-60.0 [facility] Comment on above: Performed By: #### L ACT #### [facility] [address] [address] [address] Cuba Weber MCH 28.5 pg Normal 25.9-34.0 [facility] Comment on above: Performed By: #### L ACT #### [facility] [address] [address] [address] Cuba Weber MCHC 33.2 g/dl Normal 29.9-35.2 [facility] Comment on above: Performed By: #### L ACT #### [facility] [address] [address] [address] Cuba Weber MCV 85.8 fL Normal 80.0-94.0 [facility] Comment on above: Performed By: #### L ACT #### [facility] [address] [place] [address] Dr. [place] Weber METAMYELOCYTE # Normal [facility] Comment on above: Performed By: #### L ACT #### [facility] [address] [place] [address] Dr. Cuba Weber METAMYELOCYTE % Normal [facility] Comment on above: Performed By: #### L ACT #### [facility] [address] [place] [address] Dr. Cuba Weber MONOM# 0.00 103/ul Critically low 0.30-0.80 [facility] Comment on above: Performed By: #### L ACT #### [facility] [address] [place] [address] Dr. Cuba Weber MONOM% 0.0 % Critically low 1.7-12.0 [facility] Comment on above: Performed By: #### L ACT #### [facility] [address] [place] [address] Dr. Cuba Weber MPV 10.7 fL Normal 9.5-13.5 [facility] Comment on above: Performed By: #### L ACT #### [facility] [address] [place] [address] Dr. Cuba Wbeer MYELOCYTE # Normal [facility] Comment on above: Performed By: #### L ACT #### [facility] [address] [place] [address] Dr. Cuba Weber MYELOCYTE % Normal [facility] Comment on above: Performed By: #### L ACT #### [facility] [address] [place] [address] Dr. [place] Weber NRBC Normal [facility] Comment on above: Performed By: #### L ACT #### [facility] [address] [place] [address] Dr. Cuba Weber PLT 93 103/ul Critically low 150-450 [facility] Comment on above: Performed By: #### L ACT #### [facility] [address] [place], [place] [address] Dr. Cuba Weber RBC 3.72 106/ul Critically low 4.70-6.10 [facility] Comment on above: Performed By: #### L ACT #### [facility] [address] [place], [place] [address] Dr. Cuba Weber RDW 14.7 % Normal 11.0-15.0 [facility] Comment on above: Performed By: #### L ACT #### [facility] [address] [place], [place] [address] Dr. Cuba Weber SEG # 16.13 103/ul Critically high 1.40-6.50 [facility] Comment on above: Performed By: #### L ACT #### [facility] [address] [place], [place] [address] Dr. Cuba Weber SEG % 84.0 % Critically high 43.0-75.0 [facility] Comment on above: Performed By: #### L ACT #### [facility] [address] [place], [place] [address] Dr. Cuba Weber WBC 19.2 103/ul Critically high 4.0-11.0 [facility] Comment on above: Performed By: #### L ACT #### [facility] [id number] Cuba Weber CT ABD/PELVIS WO CONon [...] MINERVA REN Date: 2022-07-20 16:47 Normal [facility] MAGNESIUMon 07-20-2022 Magnesium [Mass/Vol] 1.5 mg/dL Critically low 1.8-2.4 [facility] Comment on above: Performed By: #### L ACT #### [facility] [address] [place], [place] [address] Dr. Cuba Weber Magnesium [Mass/Vol] 1.3 mg/dL Critically low 1.8-2.4 [facility] Comment on above: Performed By: #### M Charla, CMP ####[facility] [address] [place], [place] [address]MhDr. Cuba Weber PROF 14(COMP METB)on 023 Albumin [Mass/Vol] 2.7 g/dL Critically low 3.4-5.0 [facility] Comment on above: Performed By: #### L ACT #### [facility] [address] [place] [address] Dr. [place] Weber Albumin/Globulin [Mass ratio] 0.7 {ratio} Normal [facility] Comment on above: Performed By: #### L ACT #### [facility] [address] [place] [address] Dr. Cuba Weber ALP [Catalytic activity/Vol] 89 U/L Normal 46-116 [facility] Comment on above: Performed By: #### L ACT #### [facility] [address] [place] [address] Dr. Cuba Weber ALT [Catalytic activity/Vol] 42 U/L Normal 16-63 [facility] Comment on above: Performed By: #### L ACT #### [facility] [address] [place] [address] Dr. Cuba Weber Anion gap [Moles/Vol] 19.1 mmol/L Normal [facility] Comment on above: Performed By: #### L ACT #### [facility] [address] [place] [address] Dr. [place] Weber AST [Catalytic activity/Vol] 60 U/L Critically high 15-37 [facility] Comment on above: Performed By: #### L ACT #### [facility] [address] [place] [address] Dr. Cuba Weber Bilirubin [Mass/Vol] 1.9 mg/dL Critically high 0.2-1.0 [facility] Comment on above: Performed By: #### L ACT #### [facility] [address] [place] [address] Dr. Cuba Weber Calcium [Mass/Vol] 8.2 mg/dL Critically low 8.5-10.1 [facility] Comment on above: Performed By: #### L ACT #### [facility] [address] [place] [address] Dr. Cuba Weber Chloride [Moles/Vol] 102 mmol/L Normal 98-107 [facility] Comment on above: Performed By: #### L ACT #### [facility] [address] [place] [address] Dr. Cuba Weber CO2 [Moles/Vol] 20.2 mmol/L Critically low 21.0-32.0 [facility] Comment on above: Performed By: #### L ACT #### [facility] [address] [address] [address] Cuba Weber Creatinine [Mass/Vol] 2.29 mg/dL Critically high 0.70-1.30 [facility] Comment on above: Performed By: #### L ACT #### [facility] [address] [address] [address] Cuba Weber EGFR-AF GUINEAN 35 mL/min/1.73m2 Critically low >=60 [facility] Comment on above: Performed By: #### L ACT #### [facility] [address] [address] [address] [place] Weber EGFR-NON AF GUINEAN 29 mL/min/1.73m2 Critically low >=60 [facility] Comment on above: Performed By: #### L ACT #### [facility] [address] [address] [address] Cuba Weber Globulin (S) [Mass/Vol] 3.9 g/dL Normal [facility] Comment on above: Performed By: #### L ACT #### [facility] [address] [place] [address] Dr. [place] Weber Glucose [Mass/Vol] 78 mg/dL Normal 74-106 [facility] Comment on above: Performed By: #### L ACT #### [facility] [address] [address] [address] Cuba Weber Potassium [Moles/Vol] 4.3 mmol/L Normal 3.5-5.1 [facility] Comment on above: Performed By: #### L ACT #### [facility] [address] [address] [address] Cuba Weber Protein [Mass/Vol] 6.6 g/dL Normal 6.4-8.2 [facility] Comment on above: Performed By: #### L ACT #### [facility] [address] [address] [address] Cuba Weber Sodium [Moles/Vol] 137 mmol/L Normal 136-145 [facility] Comment on above: Performed By: #### L ACT #### [facility] [address] [address] [address] [place] Weber Urea nitrogen [Mass/Vol] 30.0 mg/dL Critically high 7.0-18.0 [facility] Comment on above: Performed By: #### L ACT #### [facility] [address] [address] [address] [place] Weber Urea nitrogen/Creatinine [Mass ratio] 13.1 mg/mg Normal [facility] Comment on above: Performed By: #### L ACT #### [facility] [address] [address] [address] Cuba Weber Albumin [Mass/Vol] 2.4 g/dL Critically low 3.4-5.0 [facility] Comment on above: Performed By: #### M G, CMP ####[facility] [address] [id number] Cuba Weber Albumin/Globulin [Mass ratio] 0.7 {ratio} Normal [facility] Comment on above: Performed By: #### M G, CMP ####[facility] [address] [id number] Cuba Weber ALP [Catalytic activity/Vol] 65 U/L Normal 46-116 [facility] Comment on above: Performed By: #### M G, CMP ####[facility] [address] [id number][address] [place] Weber ALT [Catalytic activity/Vol] 33 U/L Normal 16-63 [facility] Comment on above: Performed By: #### M G, CMP ####[facility] [address] [id number] Weber Anion gap [Moles/Vol] 14.1 mmol/L Normal [facility] Comment on above: Performed By: #### M G, CMP ####[facility] [address] [id number][address] Cuba Weber AST [Catalytic activity/Vol] 42 U/L Critically high 15-37 [facility] Comment on above: Performed By: #### M G, CMP ####[facility] [address] [address]Dr. Cuba Weber Bilirubin [Mass/Vol] 1.5 mg/dL Critically high 0.2-1.0 [facility] Comment on above: Performed By: #### M G, CMP ####[facility] [address] [place], [place] [address]Dr. Cuba Weber Calcium [Mass/Vol] 7.8 mg/dL Critically low 8.5-10.1 [facility] Comment on above: Performed By: #### M Charla, CMP ####[facility] [address] [place], [place] [address]Dr. Cuba Weber Chloride [Moles/Vol] 104 mmol/L Normal 98-107 [facility] Comment on above: Performed By: #### Wendy Dunham, CMP ####[facility] [address] [place], [place] [address]Dr. [place] Weber CO2 [Moles/Vol] 20.8 mmol/L Critically low 21.0-32.0 [facility] Comment on above: Performed By: #### Wendy Dunham, CMP ####[facility] [address] [place], [place] [address]Dr. Cuba Weber Creatinine [Mass/Vol] 2.41 mg/dL Critically high 0.70-1.30 [facility] Comment on above: Performed By: #### Wendy Dunham, CMP ####[facility] [address] [place], [place] [address]Dr. [place] Weber EGFR-AF GUINEAN 33 mL/min/1.73m2 Critically low >=60 [facility] Comment on above: Performed By: #### Wendy Dunham, CMP ####[facility] [address] [place], [place] [address]Dr. Cuba Weber EGFR-NON AF GUINEAN 27 mL/min/1.73m2 Critically low >=60 [facility] Comment on above: Performed By: #### Wendy Dunham, CMP ####[facility] [address] [place], [place] [address]Dr. [place] Weber Globulin (S) [Mass/Vol] 3.5 g/dL Normal [facility] Comment on above: Performed By: #### Wendy Dunham, CMP ####[facility] [address] [address]Dr. Sharynshasta Weber Glucose [Mass/Vol] 85 mg/dL Normal 74-106 [facility] Comment on above: Performed By: #### Wendy Dunham, CMP ####[facility] [address] [address]Dr. Cuba Weber Potassium [Moles/Vol] 3.9 mmol/L Normal 3.5-5.1 [facility] Comment on above: Performed By: #### Wendy Dunham, CMP ####[facility] [address] [place], [place] [address]Dr. Cuba Weber Protein [Mass/Vol] 5.9 g/dL Critically low 6.4-8.2 [facility] Comment on above: Performed By: #### Wendy Dunham, CMP ####[facility] [address] [place], [place] [address]Dr. Cuba Weber Sodium [Moles/Vol] 135 mmol/L Critically low 136-145 [facility] Comment on above: Performed By: #### Wendy Dunham, CMP ####[facility] [address] [place], [place] [address]Dr. Cuba Weber Urea nitrogen [Mass/Vol] 36.0 mg/dL Critically high 7.0-18.0 [facility] Comment on above: Performed By: #### Wendy Dunham, CMP ####[facility] [address] [address]Dr. Cuba Weber Urea nitrogen/Creatinine [Mass ratio] 14.9 mg/mg Normal [facility] Comment on above: Performed By: #### Wendy Dunham, CMP ####[facility] [address] [address]Dr. Cuba Weber UA RANDOMon 07-20-2022 Bilirubin Ql (U) Negative Normal NEGATIVE [facility] Comment on above: Performed By: #### R SPLUS #### [facility] [address] [place] [address] Dr. [place] Weber Clarity (U) CLEAR Normal CLEAR [facility] Comment on above: Performed By: #### R SPLUS #### [facility] [address] [place] [address] Dr. [place] Weber Color (U) YELLOW Normal YELLOW [facility] Comment on above: Performed By: #### R SPLUS #### [facility] [address] [place] [address] Dr. [place] Weber Glucose Ql (U) Negative Normal NEGATIVE [facility] Comment on above: Performed By: #### R SPLUS #### [facility] [address] [place] [address] Dr. [place] Weber Hemoglobin Ql (U) LARGE Abnormal NEGATIVE [facility] Comment on above: Performed By: #### R SPLUS #### [facility] [address] [place] [address] Dr. [place] Weber Ketones Ql (U) Negative Normal NEGATIVE [facility] Comment on above: Performed By: #### R SPLUS #### [facility] [address] [place] [address] Dr. Cuba Weber LEUKOCYTES LARGE Abnormal NEGATIVE [facility] Comment on above: Performed By: #### R SPLUS #### [facility] [address] [place] [address] Dr. [place] Weber Nitrite Ql (U) Negative Normal NEGATIVE [facility] Comment on above: Performed By: #### R SPLUS #### [facility] [address] [place] [address] Dr. [place] Weber pH (U) 6.5 [pH] Normal 5-9 [facility] Comment on above: Performed By: #### R SPLUS #### [facility] [address] [place] [address] Dr. Cuab Weber SPEC GRAVITY <=1.005 Abnormal 1.005-<=1.02 5 [facility] Comment on above: Performed By: #### R SPLUS #### [facility] [address] [place] [address] Dr. [place] Weber UA PROTEIN 100 mg/dl Abnormal NEGATIVE/ TRACE [facility] Comment on above: Performed By: #### R SPLUS #### [facility] [address] [place] [address] Dr. [place] Weber Urobilinogen Qn (U) 1.0 {Kalina'U}/dL Normal 0.2 - 1. 0 [facility] Comment on above: Performed By: #### R SPLUS #### [facility] [address] [place] [address] Dr. [place] Weber BLOOD CULTURE ID PANELon A. baumannii Not detected Normal NOT DETECTED [facility] Comment on above: Performed By: #### L ACT #### [facility] [address] [place] [address] Dr. [place] Weber Bacteriodes fragilis Not detected Normal NOT DETECTED [facility] Comment on above: Performed By: #### L ACT #### [facility] [address] [place] [address] Dr. [place] TOBARD CONTROLS PASSED Normal The [facility] Comment on above: Performed By: #### L ACT #### [facility] [address] [place] [address] Dr. [place] Weber BCIDBTHD BLOOD CULTURE BOTTLE INFORMATION Normal [facility] Comment on above: Performed By: #### L ACT #### [facility] [address] [place] [address] Dr. [place] Weber BCIDHD1 ANTIMICROBIAL RESISTANCE GENES Normal [facility] Comment on above: Performed By: #### L ACT #### [facility] [address] [place] [address] Dr. [place] Weber BCIDHD2 SEE BELOW Normal [facility] Comment on above: Result Comment: Note : Antimicrobial resitance can occur via multiple mechanisms. A Not Detected result for the [employer] antomicrobial resistance gene assays does not indicate antimicrobial susceptibility. Subculturing is required for species identification and susceptibility testing of isolates. Performed By: #### L ACT #### [facility] [address] [place] [address] Dr. [place] Weber BCIDHD3 Positive [facility] Comment on above: Performed By: #### L ACT #### [facility] [address] [address] [address] [place] Weber BCIDHD4 Negative Normal [facility] Comment on above: Performed By: #### L ACT #### [facility] [address] [address] [address] [place] Weber BCIDHD5 YEAST Normal [facility] Comment on above: Performed By: #### L ACT #### [facility] [address] [address] [address] [place] Weber Bottle Set: Set 1 Normal [facility] Comment on above: Performed By: #### L ACT #### [facility] [address] [address] [address] [place] Weber Bottle: Aerobic Normal [facility] Comment on above: Performed By: #### L ACT #### [facility] [address] [address] [address] [place] Weber C. neoformans/gattii Not detected Normal NOT DETECTED [facility] Comment on above: Performed By: #### L ACT #### [facility] [address] [address] [address] Cuba Weber Marleny albicans Not detected Normal NOT DETECTED [facility] Comment on above: Performed By: #### L ACT #### [facility] [address] [address] [address] [place] Weber Marleny auris Not detected Normal NOT DETECTED [facility] Comment on above: Performed By: #### L ACT #### [facility] [address] [address] [address] [place] Weber Marleny glabrata Not detected Normal NOT DETECTED [facility] Comment on above: Performed By: #### L ACT #### [facility] [address] [address] [address] [place] Weber [place]y Krusei Not detected Normal NOT DETECTED [facility] Comment on above: Performed By: #### L ACT #### [facility] [address] [address] [address] Cuba Weber [place]y Parapsilosis Not detected Normal NOT DETECTED [facility] Comment on above: Performed By: #### L ACT #### [facility] [address] [place] [address] Dr. Cuba Weber Marleny Tropicalis Not detected Normal NOT DETECTED [facility] Comment on above: Performed By: #### L ACT #### [facility] [address] [address] [address] [place] Weber CTX-M Resistant Gene Detected Abnormal NOT DETECTED [facility] Comment on above: Performed By: #### L ACT #### [facility] [address] [place] [address] Dr. [place] Weber E. Cloacae complex Not detected Normal NOT DETECTED [facility] Comment on above: Performed By: #### L ACT #### [facility] [address] [place] [address] Dr. [place] Weber E. faecalis Not detected Normal NOT DETECTED [facility] Comment on above: Performed By: #### L ACT #### [facility] [address] [place] [address] Dr. [place] Weber E. faecium Not detected Normal NOT DETECTED [facility] Comment on above: Performed By: #### L ACT #### [facility] [address] [place] [address] Dr. [place] Weber Enterobacteriaceae Detected Critically abnormal NOT DETECTED [facility] Comment on above: Performed By: #### L ACT #### [facility] [address] [place] [address] Dr. [place] Weber Escherichia coli Not detected Normal NOT DETECTED [facility] Comment on above: Performed By: #### L ACT #### [facility] [address] [place] [address] Dr. [place] Weber H. influenzae Not detected Normal NOT DETECTED [facility] Comment on above: Performed By: #### L ACT #### [facility] [address] [place] [address] Dr. Cuba Weber IMP Resistant Gene Not detected Normal NOT DETECTED [facility] Comment on above: Performed By: #### L ACT #### [facility] [address] [place] [address] Dr. [place] Weber K. oxytoca Not detected Normal NOT DETECTED [facility] Comment on above: Performed By: #### L ACT #### [facility] [address] [place] [address] Dr. [place] Weber K. pneumoniae Detected Critically abnormal NOT DETECTED [facility] Comment on above: Performed By: #### L ACT #### [facility] [address] [place] [address] Dr. [place] Weber Klebsiella aerogenes Not detected Normal NOT DETECTED [facility] Comment on above: Performed By: #### L ACT #### [facility] [address] [place] [address] Dr. Cuba Weber KPC Resistant Gene Not detected Normal NOT DETECTED [facility] Comment on above: Performed By: #### L ACT #### [facility] [address] [place] [address] Dr. [place] Weber List. monocytogenes Not detected Normal NOT DETECTED [facility] Comment on above: Performed By: #### L ACT #### [facility] [address] [place] [address] Dr. [place] Weber Mcr-1 Resistant Gene Not detected Normal NOT DETECTED [facility] Comment on above: Performed By: #### L ACT #### [facility] [address] [place] [address] Dr. [place] Weber mecA/C Not Applicable Normal NOT DETECTED [facility] Comment on above: Performed By: #### L ACT #### [facility] [address] [place] [address] Dr. [place] Weber mecA/C MREJ Not Applicable Normal NOT DETECTED [facility] Comment on above: Performed By: #### L ACT #### [facility] [address] [place] [address] Dr. [place] Weber N. meningitidis Not detected Normal NOT DETECTED [facility] Comment on above: Performed By: #### L ACT #### [facility] [address] [place] [address] Dr. [place] Weber NDM Resistant Gene Not detected Normal NOT DETECTED [facility] Comment on above: Performed By: #### L ACT #### [facility] [address] [place] [address] Dr. [place] Weber Oxa-48-like Not detected Normal NOT DETECTED [facility] Comment on above: Performed By: #### L ACT #### [facility] [address] [address] [address] Cuba Weber Proteus Not detected Normal NOT DETECTED [facility] Comment on above: Performed By: #### L ACT #### [facility] [address] [place] [address] Dr. [place] Weber Pseud. aeruginosa Not detected Normal NOT DETECTED [facility] Comment on above: Performed By: #### L ACT #### [facility] [address] [place] [address] Dr. [place] Weber S. maltophilia Not detected Normal NOT DETECTED [facility] Comment on above: Performed By: #### L ACT #### [facility] [address] [place] [address] Dr. [place] Weber Salmonella Not detected Normal NOT DETECTED [facility] Comment on above: Performed By: #### L ACT #### [facility] [address] [place] [address] Dr. [place] Weber Seratia marcescens Not detected Normal NOT DETECTED [facility] Comment on above: Performed By: #### L ACT #### [facility] [address] [place] [address] Dr. Cuba Weber Site: Rt Ac Normal [facility] Comment on above: Performed By: #### L ACT #### [facility] [address] [place] [address] Dr. [place] Weber Staph. aureus Not detected Normal NOT DETECTED [facility] Comment on above: Performed By: #### L ACT #### [facility] [address] [place] [address] Dr. [place] Weber Staph. epidermidis Not detected Normal NOT DETECTED [facility] Comment on above: Performed By: #### L ACT #### [facility] [address] [place] [address] Dr. [place] Weber Staph. lugdunensis Not detected Normal NOT DETECTED [facility] Comment on above: Performed By: #### L ACT #### [facility] [address] [place] [address] Dr. [place] Weber Staphylococcus Not detected Normal NOT DETECTED [facility] Comment on above: Performed By: #### L ACT #### [facility] [address] [place] [address] Dr. [place] Weber Strep. agalactiae Not detected Normal NOT DETECTED [facility] Comment on above: Performed By: #### L ACT #### [facility] [address] [place] [address] Dr. [place] Weber Strep. pneumoniae Not detected Normal NOT DETECTED [facility] Comment on above: Performed By: #### L ACT #### [facility] [address] [place] [address] Dr. [place] Weber Strep. pyogenes Not detected Normal NOT DETECTED [facility] Comment on above: Performed By: #### L ACT #### [facility] [address] [place] [address] Dr. [place] Weber Streptococcus Not detected Normal NOT DETECTED [facility] Comment on above: Performed By: #### L ACT #### [facility] [address] [place] [address] Dr. [place] Weber Wilbert/B Resist. Gene Not Applicable Normal NOT DETECTED [facility] Comment on above: Performed By: #### L ACT #### [facility] [address] [place] [address] Dr. [place] Weber VIM Resistant Gene Not detected Normal NOT DETECTED [facility] Comment on above: Performed By: #### L ACT #### [facility] [address] [place] [address] Dr. [place] Weber CBC W MANUAL DIFFon 07-20-19 23 ANISOCYTOSIS 1+ Normal [facility] Comment on above: Performed By: #### C PETEYMAN #### [facility] [address] [place] [address] Dr. [place] Weber ATYPICAL LYMPH # Normal [facility] Comment on above: Performed By: #### C BCMAN #### [facility] [address] [place] [address] Dr. [place] Weber ATYPICAL LYMPH % Normal [facility] Comment on above: Performed By: #### C YAHIR #### [facility] [address] [place] [address] Dr. [place] Weber BAND # 0.1 103/ul Normal 0.0-0.3 [facility] Comment on above: Performed By: #### C YAHIR #### [facility] [address] [place] [address] Dr. [place] Weber BAND % 1 % Normal 0-5 [facility] Comment on above: Performed By: #### C YAHIR #### [facility] [address] [place] [address] Dr. [place] Weber BASOM # 0.00 103/ul Normal 0.00-0.10 [facility] Comment on above: Performed By: #### C YAHIR #### [facility] [address] [place] [address] Dr. [place] Weber BASOM % 0.0 % Critically low 0.2-2.0 [facility] Comment on above: Performed By: #### C YAHIR #### [facility] [address] [place] [address] Dr. Cuba Weber BLAST # Normal [facility] Comment on above: Performed By: #### C YAHIR #### [facility] [address] [place] [address] Dr. [place] Weber BLAST % Normal [facility] Comment on above: Performed By: #### C YAHIR #### [facility] [address] [place] [address] Dr. [place] Weber CORRECTED WBC Normal 4.0-11.0 [facility] Comment on above: Performed By: #### C AYHIR #### [facility] [address] [place] [address] Dr. [place] Weber EOS # 0.00 103/ul Normal 0.00-0.70 [facility] Comment on above: Performed By: #### C YAHIR #### [facility] [address] [address] [address] [place] Weber EOS% 0.0 % Critically low 0.9-7.0 [facility] Comment on above: Performed By: #### C YAHIR #### [facility] [address] [place] [address] Dr. [place] Weber HCT 39.0 % Critically low 42.0-54.0 [facility] Comment on above: Performed By: #### C YAHIR #### [facility] [address] [address] [address] [place] Weber HGB 13.2 g/dl Critically low 14.0-18.0 [facility] Comment on above: Performed By: #### C YAHIR #### [facility] [address] [place] [address] Dr. [place] Weber LYMPHM # 0.67 103/ul Critically low 1.20-3.80 [facility] Comment on above: Performed By: #### Donnell SINCLAIR #### [facility] [address] [place] [address] Dr. [place] Weber LYMPHM% 7.0 % Critically low 20.5-60.0 [facility] Comment on above: Performed By: #### Donnell SINCLAIR #### [facility] [address] [place] [address] Dr. [place] Weber MCH 28.6 pg Normal 25.9-34.0 [facility] Comment on above: Performed By: #### Donnell SINCLAIR #### [facility] [address] [address] [address] [place] Weber MCHC 33.8 g/dl Normal 29.9-35.2 [facility] Comment on above: Performed By: #### Donnell SICNLAIR #### [facility] [address] [place] [address] Dr. [place] Weber MCV 84.6 fL Normal 80.0-94.0 [facility] Comment on above: Performed By: #### Donnell SINCLAIR #### [facility] [address] [place] [address] Dr. [place] Weber METAMYELOCYTE # Normal [facility] Comment on above: Performed By: #### C YAHIR #### [facility] [address] [address] [address] [place] Weber METAMYELOCYTE % Normal [facility] Comment on above: Performed By: #### C YAHIR #### [facility] [address] [address] [address] [place] Weber MONOM# 0.29 103/ul Critically low 0.30-0.80 [facility] Comment on above: Performed By: #### C YAHIR #### [facility] [address] [place] [address] Dr. Cuba Weebr MONOM% 3.0 % Normal 1.7-12.0 [facility] Comment on above: Performed By: #### C YAHIR #### [facility] [address] [place] [address] Dr. [place] Weber MPV 10.1 fL Normal 9.5-13.5 [facility] Comment on above: Performed By: #### C YAHIR #### [facility] [address] [place] [address] Dr. [place] Weber MYELOCYTE # Normal [facility] Comment on above: Performed By: #### C YAHIR #### [facility] [address] [place] [address] Dr. [place] Weber MYELOCYTE % Normal [facility] Comment on above: Performed By: #### C YAHIR #### [facility] [address] [place] [address] Dr. [place] Weber NRBC Normal [facility] Comment on above: Performed By: #### C YAHIR #### [facility] [address] [address] [address] Cuba Weber PLT 115 103/ul Critically low 150-450 [facility] Comment on above: Performed By: #### C YAHIR #### [facility] [address] [place] [address] Dr. [place] Weber RBC 4.61 106/ul Critically low 4.70-6.10 [facility] Comment on above: Performed By: #### C BCMAN #### [facility] [address] [place] [address] Dr. [place] Weber RDW 14.3 % Normal 11.0-15.0 [facility] Comment on above: Performed By: #### C BCMAN #### [facility] [address] [place] [address] Dr. [place] Weber SEG # 8.54 103/ul Critically high 1.40-6.50 [facility] Comment on above: Performed By: #### C BCMAN #### [facility] [address] [place] [address] Dr. [place] Weber SEG % 89.0 % Critically high 43.0-75.0 [facility] Comment on above: Performed By: #### C BCMAN #### [facility] [address] [place] [address] Dr. [place] Weber WBC 9.6 103/ul Normal 4.0-11.0 [facility] Comment on above: Performed By: #### C BCMAN #### [facility] [address] [place] [address] Dr. [place] Weber CULTURE BLOODon 07-19-2022 Microscopic examination of blood, culture Culture Observations: Pediatric bottle positive; BCID= Klebsiella Pneumoniae Culture Observations: Refer to accession #[id number] for susceptibilities. Isolate 1 Klebsiella pneumoniae Growth of Normal [facility] Comment on above: Performed By: #### C BC #### [facility] [address] [place] [address] Dr. [place] Weber LACTATE/LACTIC ACIDon 2022 Lactate [Moles/Vol] 2.9 mmol/L Critically high 0.4-2.0 [facility] Comment on above: Performed By: #### C BC #### [facility] [address] [place] [address] Dr. [place] Weber Lactate [Moles/Vol] 3.4 mmol/L Critically high 0.4-2.0 [facility] Comment on above: Performed By: #### L ACT #### [facility] [address] [place] [address] Dr. [place] Weber OCC BLD IMMUNO SCREENon 06-27 OCCULT BLOOD Negative Normal NEGATIVE [facility] Comment on above: Performed By: #### O BSCRN ####[facility] [id number] [address]Dr[address] Cuba Weber PROF CHEM 8 (BAS METB)on Anion gap [Moles/Vol] 15.1 mmol/L Normal [facility] Comment on above: Performed By: #### B MP, HSTROPN ####[facility] [id number] [address]Dr[address] Cuba Weber Calcium [Mass/Vol] 8.6 mg/dL Normal 8.5-10.1 [facility] Comment on above: Performed By: #### B MP, HSTROPN ####[facility] [address] [address]Dr[address] [place] Weber Chloride [Moles/Vol] 99 mmol/L Normal 98-107 [facility] Comment on above: Performed By: #### B MP, HSTROPN ####[facility] [address] [address]Dr[address] Cuba Weber CO2 [Moles/Vol] 21.5 mmol/L Normal 21.0-32.0 [facility] Comment on above: Performed By: #### B MP, HSTROPN ####[facility] [address] [address]Dr[address] Cuba Weber Creatinine [Mass/Vol] 2.93 mg/dL Critically high 0.70-1.30 [facility] Comment on above: Performed By: #### B MP, HSTROPN ####[facility] [address] [address]Dr[address] [place] Weber EGFR-AF GUINEAN 26 mL/min/1.73m2 Critically low >=60 [facility] Comment on above: Performed By: #### B MP, HSTROPN ####[facility] [address] [address] [place] Weber EGFR-NON AF GUINEAN 22 mL/min/1.73m2 Critically low >=60 [facility] Comment on above: Performed By: #### B VERNA, HSTROPN ####[facility] [address] [address]Dr[address] Cuba Weber Glucose [Mass/Vol] 123 mg/dL Critically high 74-106 T [facility] Comment on above: Performed By: #### B VERNA, HSTROPN ####[facility] [address] [address]Dr[address] Cuba Weber Potassium [Moles/Vol] 3.6 mmol/L Normal 3.5-5.1 [facility] Comment on above: Performed By: #### B VERNA, HSTROPN ####[facility] [address] [address] [place] Weber Sodium [Moles/Vol] 132 mmol/L Critically low 136-145 Th [facility] Comment on above: Performed By: #### B VERNA HSTROPN ####[facility] [address] [address]Dr[address] [place] Weber Urea nitrogen [Mass/Vol] 34.0 mg/dL Critically high 7.0-18.0 [facility] Comment on above: Performed By: #### B VERNA HSTROPN ####[facility] [address] [address]Dr[address] [place] Weber Urea nitrogen/Creatinine [Mass ratio] 11.6 mg/mg Normal [facility] Comment on above: Performed By: #### B VERNA HSTROPN ####[facility] [address] [address]Dr[address] [place] Weber PROTIMEon 07-19-2022 INR Coag (PPP) [Relative time] 1.21 {INR} Normal [facility] Comment on above: Performed By: #### L ACT #### [facility] [address] [address] [address] [place] Weber INR GUIDELINES SEE BELOW Normal [facility] Comment on above: Result Comment: GRAZYNA RED INR: 2.0 - 3.0 CONDITIONS NOT LISTED BELOW 2.5 - 3.5 FOR PROSTHETIC HEART VALVE REPLACEMENT 2.5 - 3.5 RECURRENT THROMBOSIS Performed By: #### L ACT #### [facility] [address] [place] [address] Dr. [place] Weber PT Coag (PPP) [Time] 12.7 s Critically high 9.0-11.6 [facility] Comment on above: Performed By: #### L ACT #### [facility] [address] [place] [address] Dr. [place] Weber PTTon 07-19-2022 aPTT Coag (Bld) [Time] 27.7 s Normal 22.3-36.2 Th [facility] Comment on above: Performed By: #### L ACT #### [facility] [facility] [address] [place] [address] Dr. Cuba Weber RESPIRATORY PANEL PLUSon Adenovirus Not detected Normal NOT DETECTED [facility] Comment on above: Performed By: #### R SPLUS #### [facility] [address] [place] [address] Dr. Cuba Monahan. Parapertusis Not detected Normal NOT DETECTED [facility] Comment on above: Performed By: #### R SPLUS #### [facility] [address] [place] [address] Dr. Cuba Gallegos Pertussis Not detected Normal NOT DETECTED [facility] Comment on above: Performed By: #### R SPLUS #### [facility] [address] [place] [address] Dr. Cuba Weber Chlamydia Pneumoniae Not detected Normal NOT DETECTED [facility] Comment on above: Performed By: #### R SPLUS #### [facility] [address] [place] [address] Dr. Cuba Weber Coronavirus 229E Not detected Normal NOT DETECTED [facility] Comment on above: Performed By: #### R SPLUS #### [facility] [address] [place] [address] Dr. Cuba Weber Coronavirus HKU1 Not detected Normal NOT DETECTED [facility] Comment on above: Performed By: #### R SPLUS #### [facility] [address] [address] [address] Cuba Weber Coronavirus NL63 Not detected Normal NOT DETECTED [facility] Comment on above: Performed By: #### R SPLUS #### [facility] [address] [address] [address] Cuba Weber Coronavirus OC43 Not detected Normal NOT DETECTED [facility] Comment on above: Performed By: #### R SPLUS #### [facility] [address] [address] [address] Cuba Weber Influenza A H1 Not detected Normal NOT DETECTED [facility] Comment on above: Performed By: #### R SPLUS #### [facility] [address] [place] [address] Dr. Cuba Weber Influenza A H1 2009 Not detected Normal NOT DETECTED [facility] Comment on above: Performed By: #### R SPLUS #### [facility] [address] [place] [address] Dr. Cuba Weber Influenza A H3 Not detected Normal NOT DETECTED [facility] Comment on above: Performed By: #### R SPLUS #### [facility] [address] [place] [address] Dr. Cuba Weber Influenza B Not detected Normal NOT DETECTED [facility] Comment on above: Performed By: #### R SPLUS #### [facility] [address] [place] [address] Dr. Cuba Weber Metapneumovirus Not detected Normal NOT DETECTED [facility] Comment on above: Performed By: #### R SPLUS #### [facility] [address] [place] [address] Dr. Cuba Weber Mycoplas. Pneumoniae Not detected Normal NOT DETECTED [facility] Comment on above: Performed By: #### R SPLUS #### [facility] [address] [place] [address] Dr. Cuba Weber Parainfluenza 1 Not detected Normal NOT DETECTED [facility] Comment on above: Performed By: #### R SPLUS #### [facility] [address] [place] [address] Dr. Cuba Weber Parainfluenza 2 Not detected Normal NOT DETECTED [facility] Comment on above: Performed By: #### R SPLUS #### [facility] [address] [place] [address] Dr. Cuab Weber Parainfluenza 3 Not detected Normal NOT DETECTED [facility] Comment on above: Performed By: #### R SPLUS #### [facility] [address] [place] [address] Dr. Cuba Weber Parainfluenza 4 Not detected Normal NOT DETECTED [facility] Comment on above: Performed By: #### R SPLUS #### [facility] [address] [place] [address] Dr. Cuba Weber Rhino/Enterovirus Not detected Normal NOT DETECTED [facility] Comment on above: Performed By: #### R SPLUS #### [facility] [address] [place] [address] Dr. Cuba Weber RP2 Header 1 RESPIRATORY PANEL: VIRUSES Normal [facility] Comment on above: Performed By: #### R SPLUS #### [facility] [address] [place] [address] Dr. Cuba Weber RP2 Header 2 RESPIRATORY PANEL: BACTERIA Normal [facility] Comment on above: Performed By: #### R SPLUS #### [facility] [address] [place] [address] Dr. Cuba Weber RSV Not detected Normal NOT DETECTED [facility] Comment on above: Performed By: #### R SPLUS #### [facility] [address] [place] [address] Dr. Cuba Weber SARS-CoV-2 (COVID-19) RNA ROSSANA+probe Ql (Unsp spec) Not detected Normal NOT DETECTED [facility] Comment on above: Performed By: #### R SPLUS #### [facility] [address] [place] [address] Dr. Cuba Weber TROPONIN, HIGH SENSITIVITYon 07-19-2022 HSTROP 42.9 pg/mL Normal 4.0-76.1 [facility] Comment on above: Result Comment: CUT- OFF POINTS HAVE BEEN ESTABLISHED BASED ON THE FOURTH UNIVERSAL DEFINITIONS OF MYOCARDIAL INFARCTION. THE UPPER REFERENCE LIMIT (URL) OF TROPONIN, DEFINED THE 99TH PERCENTILE OF cTnI DISTRIBUTION IN A REFERENCE POPULATION, HAS BEEN CONFIRMED THE DECISION THRESHOLD FOR [place] DIAGNOSIS. Performed By: #### B VERNA, HSTROPN ####[facility] [address] [place], [place] [address]JcGlory Weber XR CHEST 1 Von 07-19-2022 XR [...] MINERVA REN Date: 2022-07-19 12:00 Normal [facility] Formson 06-03-2022 Forms [id number] #1.00CD:127 Normal [facility] ECHOCARDIO M/2D COMPLETEon 0 05-10-2022 ECHOCARDIO M/2D COMPLETE Patient: FEDE GUERRA Exam Date: 05/10/2022 : 1955 Gender:M Ordering : YAZMIN CHILEL Admission #: [id number] Family : Order #: [id number] CLICK HERE TO VIEW EXAM ECHOCARDIOGRAM REPORT [...] M.D. on 05/11/2022 at 08:22 Normal [facility] NM STRESS/REST MULTIon 05-10 NM STRESS/REST MULTI Patient: FEDE GUERRA Exam Date: 05/10/2022 : 1955 Gender:M Ordering : YAZMIN CHILEL Admission #: [id number] Family : Order #: [id number] CLICK HERE TO VIEW EXAM RADIOLOGY REPORT [...] MD on 05/12/2022 at 06:07 Normal [facility] CARDIAC ERIKA ADMITon 023 CK [Catalytic activity/Vol] 88 U/L Normal 39-308 [facility] Comment on above: Performed By: #### L ACT #### [facility] [address] [place] [address] Dr. Cuba Weber CK.MB [Mass/Vol] ng/mL Normal <=3.60 [facility] [place] Comment on above: Performed By: #### L ACT #### [facility] [address] [place] [address] Dr. Cuba Weber HSTROP 5.9 pg/mL Normal 4.0-76.1 [facility] Comment on above: Result Comment: CUT- OFF POINTS HAVE BEEN ESTABLISHED BASED ON THE FOURTH UNIVERSAL DEFINITIONS OF MYOCARDIAL INFARCTION. THE UPPER REFERENCE LIMIT (URL) OF TROPONIN, DEFINED THE 99TH PERCENTILE OF cTnI DISTRIBUTION IN A REFERENCE POPULATION, HAS BEEN CONFIRMED THE DECISION THRESHOLD FOR [place] DIAGNOSIS. Performed By: #### L ACT #### [facility] [address] [place] [address] Dr. Cuba Weber MOISÉS 46 ng/mL Normal 16-96 [facility] Comment on above: Performed By: #### L ACT #### [facility] [address] [place] [address] Dr. Cuba Weber CBC AUTO DIFFon 05-01-2022 BASO # 0.0 103/ul Normal 0.0-0.1 [facility] Comment on above: Performed By: #### R SPLUS #### [facility] [address] [place] [address] Dr. Cuba Weber Basophils/100 WBC (Bld) 1.1 % Normal 0.2-2.0 [facility] Comment on above: Performed By: #### R SPLUS #### [facility] [address] [place] [address] Dr. Cuba Weber EO # 0.2 103/ul Normal 0.0-0.7 [facility] Comment on above: Performed By: #### R SPLUS #### [facility] [address] [place] [address] Dr. Cuba Weber Eosinophils/100 WBC (Bld) 6.4 % Normal 0.9-7.0 [facility] Comment on above: Performed By: #### R SPLUS #### [facility] [address] [place] [address] Dr. Cuba Weber Erythrocyte distribution width (RBC) [Ratio] 13.3 % Normal 11.0-15.0 [facility] Comment on above: Performed By: #### R SPLUS #### [facility] [address] [place] [address] Dr. Cuba Weber Hematocrit (Bld) [Volume fraction] 43.5 % Normal 42.0-54.0 [facility] Comment on above: Performed By: #### R SPLUS #### [facility] [address] [place] [address] Dr. Cuba Weber Hemoglobin (Bld) [Mass/Vol] 13.5 g/dL Critically low 14.0-18.0 [facility] Comment on above: Performed By: #### R SPLUS #### [facility] [address] [place] [address] Dr. Cuba Weber IG # 0.01 10e3/ul Normal 0.00-0.03 [facility] Comment on above: Performed By: #### R SPLUS #### [facility] [address] [place] [address] Dr. Cuba Weber IG % 0.3 % Normal 0.0-0.5 [facility] Comment on above: Performed By: #### R SPLUS #### [facility] [address] [place] [address] Dr. Cuba Weber LYMPH # 1.5 103/ul Normal 1.2-3.8 [facility] Comment on above: Performed By: #### R SPLUS #### [facility] [address] [place] [address] Dr. Cuba Weber Lymphocytes/100 WBC (Bld) 40.1 % Normal 20.5-60.0 [facility] Comment on above: Performed By: #### R SPLUS #### [facility] [address] [place] [address] Dr. Cuba Weber MANUAL DIFF REQ NO Normal [facility] Comment on above: Performed By: #### R SPLUS #### [facility] [address] [place] [address] Dr. Cuba Weber MCH (RBC) [Entitic mass] 28.0 pg Normal 25.9-34.0 [facility] Comment on above: Performed By: #### R SPLUS #### [facility] [address] [place] [address] Dr. Cuba Weber MCHC (RBC) [Mass/Vol] 31.0 g/dL Normal 29.9-35.2 [facility] Comment on above: Performed By: #### R SPLUS #### [facility] [address] [place] [address] Dr. Cuba Weber MCV (RBC) [Entitic vol] 90.2 fL Normal 80.0-94.0 [facility] Comment on above: Performed By: #### R SPLUS #### [facility] [address] [place] [address] Dr. Cuba Weber MONO # 0.4 103/ul Normal 0.3-0.8 [facility] Comment on above: Performed By: #### R SPLUS #### [facility] [address] [place] [address] Dr. Cuba Weber Monocytes/100 WBC (Bld) 11.9 % Normal 1.7-12.0 [facility] Comment on above: Performed By: #### R SPLUS #### [facility] [address] [place] [address] Dr. Cuba Weber NEUT # 1.5 103/ul Normal 1.4-6.5 [facility] Comment on above: Performed By: #### R SPLUS #### [facility] [address] [place] [address] Dr. Cuba Weber Neutrophils/100 WBC (Bld) 40.2 % Critically low 43.0-75.0 [facility] Comment on above: Performed By: #### R SPLUS #### [facility] [address] [place] [address] Dr. Cuba Weber Platelet mean volume (Bld) [Entitic vol] 9.5 fL Normal 9.5-13.5 [facility] Comment on above: Performed By: #### R SPLUS #### [facility] [address] [place] [address] Dr. Cuba Weber PLT 239 103/ul Normal 150-450 [facility] Comment on above: Performed By: #### R SPLUS #### [facility] [address] [place] [address] Dr. Cuba Weber RBC 4.82 106/ul Normal 4.70-6.10 [facility] Comment on above: Performed By: #### R SPLUS #### [facility] [address] [place] [address] Dr. Cuba Weber WBC 3.6 103/ul Critically low 4.0-11.0 [facility] Comment on above: Performed By: #### R SPLUS #### [facility] [address] [place] [address] Dr. Cuba Weber PROF 14(COMP METB)on 023 Albumin [Mass/Vol] 3.7 g/dL Normal 3.4-5.0 [facility] Comment on above: Performed By: #### L ACT #### [facility] [address] [place] [address] Dr. Cuba Weber Albumin/Globulin [Mass ratio] 0.9 {ratio} Normal [facility] Comment on above: Performed By: #### L ACT #### [facility] [address] [place] [address] Dr. Cuba Weber ALP [Catalytic activity/Vol] 91 U/L Normal 46-116 [facility] Comment on above: Performed By: #### L ACT #### [facility] [address] [place] [address] Dr. Cuba Weber ALT [Catalytic activity/Vol] 20 U/L Normal 16-63 [facility] Comment on above: Performed By: #### L ACT #### [facility] [address] [address] [address] Cuba Weber Anion gap [Moles/Vol] 11.3 mmol/L Normal Th [facility] Comment on above: Performed By: #### L ACT #### [facility] [address] [address] [address] Cuba Weber AST [Catalytic activity/Vol] 22 U/L Normal 15-37 [facility] Comment on above: Performed By: #### L ACT #### [facility] [address] [address] [address] Cuba Weber Bilirubin [Mass/Vol] 0.6 mg/dL Normal 0.2-1.0 [facility] Comment on above: Performed By: #### L ACT #### [facility] [address] [address] [address] Cuba Weber Calcium [Mass/Vol] 9.7 mg/dL Normal 8.5-10.1 [facility] Comment on above: Performed By: #### L ACT #### [facility] [address] [address] [address] Cuba Weber Chloride [Moles/Vol] 107 mmol/L Normal 98-107 [facility] Comment on above: Performed By: #### L ACT #### [facility] [address] [address] [address] Cuba Weber CO2 [Moles/Vol] 29.0 mmol/L Normal 21.0-32.0 [facility] [place] Comment on above: Performed By: #### L ACT #### [facility] [address] [address] [address] Cuba Weber Creatinine [Mass/Vol] 0.79 mg/dL Normal 0.70-1.30 [facility] Comment on above: Performed By: #### L ACT #### [facility] [address] [address] [address] Cuba Weber EGFR-AF GUINEAN >60 Normal >=60 [facility] Comment on above: Performed By: #### L ACT #### [facility] [address] [address] [address] Cuba Weber EGFR-NON AF GUINEAN >60 Normal >=60 [facility] Comment on above: Performed By: #### L ACT #### [facility] [address] [address] [address] Cuba Weber Globulin (S) [Mass/Vol] 4.0 g/dL Normal [facility] Comment on above: Performed By: #### L ACT #### [facility] [address] [address] [address] Cuba Weber Glucose [Mass/Vol] 97 mg/dL Normal 74-106 [facility] Comment on above: Performed By: #### L ACT #### [facility] [address] [place] [address] Dr. Cuba Weber Potassium [Moles/Vol] 4.3 mmol/L Normal 3.5-5.1 [facility] Comment on above: Performed By: #### L ACT #### [facility] [address] [place] [address] Dr. Cuba Weber Protein [Mass/Vol] 7.7 g/dL Normal 6.4-8.2 [facility] Comment on above: Performed By: #### L ACT #### [facility] [address] [place] [address] Dr. Cuba Weber Sodium [Moles/Vol] 143 mmol/L Normal 136-145 [facility] Comment on above: Performed By: #### L ACT #### [facility] [address] [address] [address] Cuba Weber Urea nitrogen [Mass/Vol] 11.0 mg/dL Normal 7.0-18.0 [facility] Comment on above: Performed By: #### L ACT #### [facility] [address] [place] [address] Dr. Cuba Weber Urea nitrogen/Creatinine [Mass ratio] 13.9 mg/mg Normal [facility] Comment on above: Performed By: #### L ACT #### [facility] [address] [address] [address] Cuba Weber TROPONIN, HIGH SENSITIVITYon 05-01-2022 HSTROP <4.0 Normal 4.0-76.1 [facility] Comment on above: Result Comment: CUT- OFF POINTS HAVE BEEN ESTABLISHED BASED ON THE FOURTH UNIVERSAL DEFINITIONS OF MYOCARDIAL INFARCTION. THE UPPER REFERENCE LIMIT (URL) OF TROPONIN, DEFINED THE 99TH PERCENTILE OF cTnI DISTRIBUTION IN A REFERENCE POPULATION, HAS BEEN CONFIRMED THE DECISION THRESHOLD FOR [place] DIAGNOSIS. Performed By: #### H STROPN ####[facility] [address] [place], [place] [address]ToDr. Cuba Weber XR CHEST 1 Von 05-01-2022 [...] AUSTIN WHALEY Date: 2022-05-01 09:55 Normal [facility] Telemedicineon 04-23-2022 Telemedicine [id number] Lately,Fede Drew Sr. 1955 M Date Provider Department Center 04/23/2022 3848-YAZMIN CHILEL [facility] No family history on file Level of Service:[address] [place] OFFICE/OUTPATIENT NEW MODERATE MDM 45-[address] [facility] Formson 04-21-2022 Forms [id number] #1.00CD:127 Normal [facility] ECG 12-Leadon 04-15-2022 ECG 12-Lead [id number] #1.00CD:127 Normal [facility] ECG 12-Lead [id number] #1.00CD:127 Normal [facility] ECG 12-Lead [id number] #1.00CD:127 Normal [facility] Formson 04-15-2022 Forms [id number] #1.00CD:127 Normal [facility] Lab Reportson 04-15-2022 Lab Reports [id number] #1.00CD:127 Normal [facility] Lab Reportson 04-12-2022 Lab Reports [id number] #1.00CD:127 Normal [facility] RAD - CT Reporton 04-12-2022 RAD - CT Report [id number] #1.00CD:127 Normal [facility] RAD - MISCon 04-12-2022 RAD - MISC [id number] #1.00CD:127 Normal [facility] CBC AUTO DIFFon 04-09-2022 BASO # 0.0 103/ul Normal 0.0-0.1 [facility] Comment on above: Performed By: #### C BC ####[facility] [address] [address]Dr. Cuba Weber Basophils/100 WBC (Bld) 0.7 % Normal 0.2-2.0 [facility] Comment on above: Performed By: #### C BC ####[facility] [address] [address]Dr. Cuba Weber EO # 0.3 103/ul Normal 0.0-0.7 [facility] Comment on above: Performed By: #### C BC ####[facility] [address] [address]Dr. Cuba Weber Eosinophils/100 WBC (Bld) 6.8 % Normal 0.9-7.0 [facility] Comment on above: Performed By: #### C BC ####[facility] [address] [address]Dr. Cuba Weber Erythrocyte distribution width (RBC) [Ratio] 13.2 % Normal 11.0-15.0 [facility] Comment on above: Performed By: #### C BC ####[facility] [address] [place], [place] [address]Dr. Cuba Weber Hematocrit (Bld) [Volume fraction] 42.5 % Normal 42.0-54.0 [facility] Comment on above: Performed By: #### C BC ####[facility] [address] [place], [place] [address]Dr. Cuba Weber Hemoglobin (Bld) [Mass/Vol] 13.7 g/dL Critically low 14.0-18.0 [facility] Comment on above: Performed By: #### C BC ####[facility] [address] [place], [place] [address]Dr. Cuba Weber IG # 0.01 10e3/ul Normal 0.00-0.03 [facility] Comment on above: Performed By: #### C BC ####[facility] [address] [place], [place] [address]Dr. Cuba Weber IG % 0.2 % Normal 0.0-0.5 [facility] Comment on above: Performed By: #### C BC ####[facility] [address] [place], [place] [address]Dr. Cuba Weber LYMPH # 1.5 103/ul Normal 1.2-3.8 [facility] Comment on above: Performed By: #### C BC ####[facility] [address] [place], [place] [address]Dr. Cuba Weber Lymphocytes/100 WBC (Bld) 35.8 % Normal 20.5-60.0 [facility] Comment on above: Performed By: #### C BC ####[facility] [address] [place], [place] [address]Dr. Cuba Weber MANUAL DIFF REQ NO Normal [facility] Comment on above: Performed By: #### C BC ####[facility] [address] [id number]. Cuba Gus MCH (RBC) [Entitic mass] 27.5 pg Normal 25.9-34.0 [facility] Comment on above: Performed By: #### C BC ####[facility] [address] [id number]. Cuba Gus MCHC (RBC) [Mass/Vol] 32.2 g/dL Normal 29.9-35.2 [facility] Comment on above: Performed By: #### C BC ####[facility] [address] [address]Dr. Cuba Weber MCV (RBC) [Entitic vol] 85.3 fL Normal 80.0-94.0 [facility] Comment on above: Performed By: #### C BC ####[facility] [address] [place], [place] [address]Dr. Cuba Weber MONO # 0.5 103/ul Normal 0.3-0.8 [facility] Comment on above: Performed By: #### C BC ####[facility] [address] [place], [place] [address]Dr. Cuba Weber Monocytes/100 WBC (Bld) 11.2 % Normal 1.7-12.0 [facility] Comment on above: Performed By: #### C BC ####[facility] [address] [place], [place] [address]Dr. Cuba Weber NEUT # 1.9 103/ul Normal 1.4-6.5 [facility] Comment on above: Performed By: #### C BC ####[facility] [address] [place], [place] [address]Dr. Cuba Weber Neutrophils/100 WBC (Bld) 45.3 % Normal 43.0-75.0 [facility] Comment on above: Performed By: #### C BC ####[facility] [address] [place], [place] [address]Dr. Cuba Weber Platelet mean volume (Bld) [Entitic vol] 10.2 fL Normal 9.5-13.5 [facility] Comment on above: Performed By: #### C BC ####[facility] [address] [place], [place] [address]Nx. Cuba Weber PLT 232 103/ul Normal 150-450 [facility] Comment on above: Performed By: #### C BC ####[facility] [address] [place], [place] [address]Ix. Cuba Weber RBC 4.98 106/ul Normal 4.70-6.10 [facility] Comment on above: Performed By: #### C BC ####[facility] [id number] [place], [place] [address]Bz. Cuba Weber WBC 4.3 103/ul Normal 4.0-11.0 [facility] Comment on above: Performed By: #### C BC ####[facility] [address] [place], [place] [address]AzDr. Cuba Weber Covid-19 PCR (CVDTB)on 03-28 SARS-CoV-2 (COVID-19) RNA ROSSANA+probe Ql (Unsp spec) Not detected Normal NOT DETECTED [facility] Comment on above: Result Comment: This test is not yet approved or cleared by the [place] FDA. When there are no FDA-approved or cleared tests available, and other criteria are met, FDA can make tests available under an emergency access mechanism called an Emergency Use Authorization (EUA). The EUA for this test is supported by the [place] of Health and Human Service's (HHS's) declaration [...] SARS-CoV-2. Performed By: #### R SPLUS #### [facility] [address] [place], [place] [address] Dr. Cuba Weber PROF CHEM 8 (BAS METB)on Anion gap [Moles/Vol] 14.1 mmol/L Normal [facility] Comment on above: Performed By: #### B MP ####[facility] [address] [place] [address]Dr. Cuba Weber Calcium [Mass/Vol] 9.3 mg/dL Normal 8.5-10.1 [facility] Comment on above: Performed By: #### B MP ####[facility] [address] [place], [place] [address]Dr. Cuba Weber Chloride [Moles/Vol] 106 mmol/L Normal 98-107 [facility] Comment on above: Performed By: #### B MP ####[facility] M[address] [place], [place] [address]Dr. Cuba Weber CO2 [Moles/Vol] 26.1 mmol/L Normal 21.0-32.0 [facility] [place] Comment on above: Performed By: #### B MP ####[facility] [address] [place], [place] [address]Dr. Cuba Weber Creatinine [Mass/Vol] 0.93 mg/dL Normal 0.70-1.30 [facility] Comment on above: Performed By: #### B MP ####[facility] [address] [place], [place] [address]Dr. Cuba Weber EGFR-AF GUINEAN >60 Normal >=60 [facility] [place] Comment on above: Performed By: #### B MP ####[facility] [address] [place], [place] [address]Dr. Cuba Weber EGFR-NON AF GUINEAN >60 Normal >=60 [facility] Comment on above: Performed By: #### B MP ####[facility] [address] [place], [place] [address]DrGlory Weber Glucose [Mass/Vol] 111 mg/dL Critically high 74-106 [facility] Comment on above: Performed By: #### B MP ####[facility] [address] [place], [place] [address]DrGlory Weber Potassium [Moles/Vol] 4.0 mmol/L Normal 3.5-5.1 [facility] Comment on above: Performed By: #### B MP ####[facility] [address] [place] [id number] Weber Sodium [Moles/Vol] 142 mmol/L Normal 136-145 [facility] Comment on above: Performed By: #### B MP ####[facility] [address] [place] [id number]. Cuba Weber Urea nitrogen [Mass/Vol] 9.0 mg/dL Normal 7.0-18.0 [facility] Comment on above: Performed By: #### B MP ####[facility] [address] [place] [address]DrGlory Weber Urea nitrogen/Creatinine [Mass ratio] 9.6 mg/mg Normal [facility] Comment on above: Performed By: #### B MP ####[facility] [address] [place] [address]Dr. Cuba Weber PROTIMEon 04-09-2022 INR Coag (PPP) [Relative time] 0.99 {INR} Normal [facility] Comment on above: Performed By: #### P TT, PT #### [facility] [address] [place] [address] Dr. Cuba Weebr INR GUIDELINES SEE BELOW Normal [facility] Comment on above: Result Comment: GRAZYNA RED INR: 2.0 - 3.0 CONDITIONS NOT LISTED BELOW 2.5 - 3.5 FOR PROSTHETIC HEART VALVE REPLACEMENT 2.5 - 3.5 RECURRENT THROMBOSIS Performed By: #### P TT, PT #### [facility] [address] [place] [address] [address] Cuba Weber PT Coag (PPP) [Time] 10.5 s Normal 9.0-11.6 [facility] Comment on above: Performed By: #### P TT, PT #### [facility] [address] [place] [address] [address] Cuba Weber PTTon 04-09-2022 aPTT Coag (Bld) [Time] 29.2 s Normal 22.3-36.2 [facility] Comment on above: Performed By: #### P TT, PT #### [facility] [address] [place] [address] [address] Cuba Weber XR KUB 1 VIEWon [...] MINERVA REN Date: 2022-04-09 16:33 Normal [facility] Consent for Procedure/Surger yon 04-07-2022 Consent for Procedure/Surgery [id number] #1.00CD:127 Normal [facility] Physician Referralon 023 Physician Referral [id number] #1.00CD:127 Normal [facility] Ambulatory Visit Summaryon 0 04-05-2022 Ambulatory Visit [...] KUB Where: [facility] [address] , [place] [phone] Medications What How Much When Instructions New cephalexin (Keflex 500 mg Cap) 1 Capsules By Mouth Every 12 hours Pickup at [facility]/pharmacy #[id number] Unchanged atorvastatin (atorvastatin 10 mg Tab) [...] physician if questions or concerns Pharmacy Information [facility]/pharmacy #[id number]: [address], [place] [id number] [phone] Allergies No Known Allergies Problems Ongoing - [...] as: ? (more content not included)... Normal [facility] Patient Educationon 04-05-19 23 Patient Education Obstetrics [...] these instructions at home: Medicines ? Take tena-czb-tpqmaxc and prescription medicines only as told by [...] 08/30/2008 Document Revised: 03/01/2019 Document Reviewed: 09/21/2018 [employer] Patient Education ? 2020 [employer]. Urology Kidney Stones Kidney stones are rock-like [...] kidney o (more content not included)... Normal [facility] Creatinine and Glomerular fi ltration rate.predicted panel (S/P/Bld)Ordered By: Robbi Quezada on 02-22-2022 Creatinine [Mass/Vol] 0.83 mg/dL 0.64-1.27 [facility] Estimated glomerular filtrat ion rate (GFR) non- AmericanOrdered By: Robbi Quezada on 02-22-2022 GFR/1.73 sq M.predicted among non-blacks MDRD (S/P/Bld) [Vol rate/Area] > 60 mL/Min [facility] No Panel InformationOrdered By: Robbi Quezada on 02-22-2022 Estimated GFR () > 60 mL/Min [facility] Comment on above: GFR estimated refere nce range: According to KDOQI guidelines, <60 ml/min/1.73m2 is sufficient to diagnose a patient with chronic kidney disease. Pharmacy Creatinine Clearance (Chem N/A [facility] Serum or plasma urea nitroge n measurement (mass/volume)Ordered By: Robbi Quezada on 02-22-2022 Urea nitrogen [Mass/Vol] 12 mg/dL 12-18 [facility] HEMOGRAM AND PLATELon 2021 Hematocrit (Bld) [Volume fraction] 44.5 % Normal 42.0-54.0 [facility] Comment on above: Performed By: #### H H ####[facility] [address] [place] [address]DrGlory Weber Hemoglobin (Bld) [Mass/Vol] 14.8 g/dL Normal 14.0-18.0 [facility] Comment on above: Performed By: #### H H ####[facility] [address] [place] [address]DrGlory Weber MCH (RBC) [Entitic mass] 29.0 pg Normal 25.9-34.0 [facility] Comment on above: Performed By: #### H H ####[facility] [address] [place] [address]DrGlory Weber MCHC (RBC) [Mass/Vol] 33.3 g/dL Normal 29.9-35.2 [facility] Comment on above: Performed By: #### H H ####[facility] [address] [place] [address]Dr. Cuba Weber MCV (RBC) [Entitic vol] 87.3 fL Normal 80.0-94.0 [facility] Comment on above: Performed By: #### H H ####[facility] [address] [place] [id number]. Cuba Weber PLT 253 103/ul Normal 150-450 [facility] Comment on above: Performed By: #### H H ####[facility] [address] [place] [address]Dr. Cuba Weber RBC 5.10 106/ul Normal 4.70-6.10 [facility] Comment on above: Performed By: #### H H ####[facility] [address] [place] [address]DrGlory Weber WBC 4.0 103/ul Normal 4.0-11.0 [facility] Comment on above: Performed By: #### H H ####[facility] [address] [place] [address]DrGlory Weber LIPID PROFILEon 02-01-2022 CHOL-HDL RATIO NORM SEE BELOW Normal [facility] Comment on above: Result Comment: 3.3 - 4.4 LOW RISK 4.4 - 7.1 AVERAGE RISK 7.1 - 11.0 MODERATE RISK >11.0 HIGH RISK Performed By: #### L IPID, CMP #### [facility] [address] [place] [address] [address] Cuba Weber Cholesterol [Mass/Vol] 140 mg/dL Normal <=200 Th [facility] Comment on above: Performed By: #### L IPID, CMP #### [facility] [address] [place] [address] [address] Cuba Weber Cholesterol in HDL [Mass/Vol] 38 mg/dL Critically low 40-60 [facility] Comment on above: Performed By: #### L IPID, CMP #### [facility] [address] [place] [address] [address] Cuab Weber Cholesterol in LDL [Mass/Vol] 92.4 mg/dL Normal [facility] Comment on above: Performed By: #### L IPID, CMP #### [facility] [address] [place] [address] [address] Cuba Weber Cholesterol.total/Eboni sterol in HDL [Mass ratio] 3.7 {ratio} Normal [facility] Comment on above: Performed By: #### L IPID, CMP #### [facility] [address] [place] [address] [address] Cuba Weber HDL NORMAL > or = 60 mg/dl - LOW CARDIOVASCULAR RISK <40 mg/dl - HIGH CARDIOVASCULAR RISK Normal [facility] Comment on above: Performed By: #### L IPID, CMP #### [facility] [address] [place] [address] [address] Cuba Weber LDL CALC NORMAL SEE BELOW Normal [facility] Comment on above: Result Comment: <100 mg/dl OPTIMAL 100 - 129 mg/dl NEAR OR ABOVE OPTIMAL 130 - 159 mg/dl BORDERLINE HIGH 160 - 189 mg/dl HIGH >190 mg/dl VERY HIGH Performed By: #### L IPID, CMP #### [facility] [address] [place] [address] [address] Cuba Weber Triglyceride [Mass/Vol] 48 mg/dL Normal <=150 T [facility] Comment on above: Performed By: #### L IPID, CMP #### [facility] [address] [place] [address] [address] Cuba Weber VLDL CALC 9.6 mg/dL Normal [facility] Comment on above: Performed By: #### L IPID, CMP #### [facility] [address] [place] [address] [address] Cuba Weber PROF 14(COMP METB)on 022 Albumin [Mass/Vol] 3.7 g/dL Normal 3.4-5.0 [facility] Comment on above: Performed By: #### L IPID, CMP #### [facility] [address] [place] [address] [address] Cuba Weber Albumin/Globulin [Mass ratio] 0.9 {ratio} Normal [facility] Comment on above: Performed By: #### L IPID, CMP #### [facility] [address] [place] [address] [address] Cuba Weber ALP [Catalytic activity/Vol] 92 U/L Normal 46-116 [facility] Comment on above: Performed By: #### L IPID, CMP #### [facility] [address] [place] [address] [address] Cuba Weber ALT [Catalytic activity/Vol] 10 U/L Critically low 16-63 [facility] Comment on above: Performed By: #### L IPID, CMP #### [facility] [address] [place] [address] [address] Cuba Weber Anion gap [Moles/Vol] 7.4 mmol/L Normal [facility] Comment on above: Performed By: #### L IPID, CMP #### [facility] [address] [place] [address] [address] Cuba Weber AST [Catalytic activity/Vol] 12 U/L Critically low 15-37 [facility] Comment on above: Performed By: #### L IPID, CMP #### [facility] [address] [place] [address] [address] Cuba Weber Bilirubin [Mass/Vol] 0.5 mg/dL Normal 0.2-1.0 [facility] Comment on above: Performed By: #### L IPID, CMP #### [facility] [address] [place] [address] [address] Cuba Weber Calcium [Mass/Vol] 9.3 mg/dL Normal 8.5-10.1 [facility] Comment on above: Performed By: #### L IPID, CMP #### [facility] [address] [place] [address] [address] Cuba Weber Chloride [Moles/Vol] 105 mmol/L Normal 98-107 [facility] Comment on above: Performed By: #### L IPID, CMP #### [facility] [address] [place] [address] [address] Cuba Weber CO2 [Moles/Vol] 27.8 mmol/L Normal 21.0-32.0 [facility] [place] Comment on above: Performed By: #### L IPID, CMP #### [facility] [address] [place] [address] [address] Cuba Weber Creatinine [Mass/Vol] 0.83 mg/dL Normal 0.70-1.30 [facility] Comment on above: Performed By: #### L IPID, CMP #### [facility] [address] [place] [address] [address] Cuba Weber EGFR-AF GUINEAN >60 Normal >=60 [facility] [place] Comment on above: Performed By: #### L IPID, CMP #### [facility] [address] [place] [address] [address] Cuba Weber EGFR-NON AF GUINEAN >60 Normal >=60 [facility] Comment on above: Performed By: #### L IPID, CMP #### [facility] [address] [place] [address] [address] Cuba Weber Globulin (S) [Mass/Vol] 4.2 g/dL Normal [facility] Comment on above: Performed By: #### L IPID, CMP #### [facility] [address] [place] [address] [address] Cuba Weber Glucose [Mass/Vol] 80 mg/dL Normal 74-106 [facility] Comment on above: Performed By: #### L IPID, CMP #### [facility] [address] [place] [address] [address] Cuba Weber Potassium [Moles/Vol] 4.2 mmol/L Normal 3.5-5.1 [facility] Comment on above: Performed By: #### L IPID, CMP #### [facility] [address] [place] [address] [address] Cuba Weber Protein [Mass/Vol] 7.9 g/dL Normal 6.4-8.2 [facility] Comment on above: Performed By: #### L IPID, CMP #### [facility] [address] [place] [address] [address] Cuba Weber Sodium [Moles/Vol] 136 mmol/L Normal 136-145 [facility] Comment on above: Performed By: #### L IPID, CMP #### [facility] [address] [place] [address] [address] Cuba Weber Urea nitrogen [Mass/Vol] 15.0 mg/dL Normal 7.0-18.0 [facility] Comment on above: Performed By: #### L IPID, CMP #### [facility] [address] [place] [address] [address] Cuba Weber Urea nitrogen/Creatinine [Mass ratio] 18.1 mg/mg Normal [facility] Comment on above: Performed By: #### L IPID, CMP #### [facility] [address] [place] [address] [address] Cuba Weber CBC and Differentialon 10-12 Abs Baso 0.04 k/uL Normal <0.11 [facility] Abs Power 0.81 k/uL Normal <0.87 [facility] Abs Neut 3.32 k/uL Normal 1.45-7.50 [facility] Absolute nRBC <0.01 Normal [facility]0.01 [facility] WBC (Bld) 0.7 % Normal [facility] DTYPE Auto Diff Normal [facility] Eosinophils (Bld) [#/Vol] 0.13 10*3/uL Normal <0.46 [facility] Eosinophils/100 WBC (Bld) 2.4 % Normal [facility] Erythrocyte distribution width (RBC) [Ratio] 12.4 % Normal 11.5-15.0 [facility] Hematocrit (Bld) [Volume fraction] 36.7 % Low 39.0-51.0 [facility] Hemoglobin (Bld) [Mass/Vol] 11.9 g/dL Low 13.0-17.0 [facility] Lymphocytes (Bld) [#/Vol] 1.19 10*3/uL Normal 1.00-4.00 [facility] Lymphocytes/100 WBC (Bld) 21.7 % Normal [facility] MCH (RBC) [Entitic mass] 29.0 pG Normal 26.0-34.0 [facility] MCHC (RBC) [Mass/Vol] 32.4 g/dL Normal 30.5-36.0 [facility] MCV (RBC) [Entitic vol] 89.3 fL Normal 80.0-100.0 [facility] Monocytes/100 WBC (Bld) 14.8 % Normal [facility] Neutrophils/100 WBC (Bld) 60.4 % Normal [facility] NRBCs 0.0 /100 WBC Normal 0 [facility] Platelet mean volume (Bld) [Entitic vol] 9.7 fL Normal 9.0-12.7 [facility] Platelets (Bld) [#/Vol] 388 10*3/uL Normal 150-400 [facility] RBC (Bld) [#/Vol] 4.11 10*6/uL Low 4.20-6.00 [facility] WBC (Bld) [#/Vol] 5.49 10*3/uL Normal 3.70-11.[address] [facility] [address] CHEST W IVCON PEon 2019 CT CHEST W IVCON PE * * *Final Report* * * DATE OF EXAM: Oct 13 2019 12:23PM [facility] 0540 - CT CHEST W IVCON [...] No abnormality in the imaged upper abdomen. Pull Tab Dealer (topogram) images: Unremarkable. IMPRESSION: No CT evidence of pulmonary embolism. Mild atelectasis Erosion Control Coordinator: [facility]ITAL[facility] Transcribe Date/Time: Oct 13 2019 12:38P Dictated by : ERIKA DAVIS MD This examination was interpreted and the report reviewed and electronically signed by: ERIKA DAVIS MD on Oct 13 2019 12:43PM EST [id number] CN Normal [facility] Comp Metabolic Panelon 10-12 Albumin [Mass/Vol] 3.9 g/dL Normal 3.9-4.9 [facility] ALP [Catalytic activity/Vol] 62 U/L Normal 38-113 [facility] ALT [Catalytic activity/Vol] 14 U/L Normal 10-54 [facility] Anion gap [Moles/Vol] 10 mmol/L Normal 9-18 [facility] AST [Catalytic activity/Vol] 14 U/L Normal 14-40 [facility] Bilirubin [Mass/Vol] mg/dL Low 0.2-1.3 [facility] Calcium [Mass/Vol] 9.9 mg/dL Normal 8.5-10.2 [facility] Chloride [Moles/Vol] 101 mmol/L Normal 97-105 [facility] CO2 [Moles/Vol] 26 mmol/L Normal 22-30 [facility] ital Creatinine [Mass/Vol] 0.85 mg/dL Normal 0.73-1.22 [facility] eGFR- Amer. >60 Normal [facility] GFR/1.73 sq M predicted among non-blacks MDRD (S/P/Bld) [Vol rate/Area] mL/min/{1.73_m2} Normal [facility] Comment on above: Result Comment: eGFR (Estimated [...] GFR. Glucose [Mass/Vol] 120 mg/dL High 74-99 [facility] Comment on above: Result Comment: The [place] Diabetes Association (ADA) provides guidance for cutoff [...] Standards of Medical Care in Diabetes 2016, [place] Diabetes Association. Diabetes Care. 2016.39(Suppl 1). Potassium [Moles/Vol] 4.2 mmol/L Normal 3.7-5.1 [facility] Protein [Mass/Vol] 6.9 g/dL Normal 6.3-8.0 [facility] Sodium [Moles/Vol] 137 mmol/L Normal 136-144 [facility] Urea nitrogen [Mass/Vol] 14 mg/dL Normal 9-24 [facility] ED NOTEon 10-13-2019 ED NOTE HNO ID: [id number] Author: Elzbieta (Rn) HANY Ayala Service: Nursing Author Type: Registered Nurse Type: ED Notes Filed: 10/13/2019 2:01 PM Note Text: [facility] in stable condition, but AMA. Pt states that he understands that he is leaving AMA and accepts the implications of doing so. [facility] Report also given to [facility] personal. [facility] ED NOTE HNO ID: [id number] Author: Kaykay Riveor RN Service: ? Author Type: Registered Nurse Type: ED Notes Filed: 10/13/2019 10:39 AM Note Text: Dr. Pérez at bedside to examine pt. [facility] ED NOTE HNO ID: [id number] Author: Kaykay Rivero RN Service: ? Author Type: Registered Nurse Type: ED Notes Filed: 10/13/2019 10:10 AM Note Text: Portable CXR being done [facility] ED NOTE HNO ID: [id number] Author: Kaykay Rivero RN Service: ? Author [...] in bed with siderails up x 2. [facility] ED NOTE HNO ID: [id number] Author: Kaykay Rivero RN Service: ? Author Type: Registered Nurse Type: ED Notes Filed: 10/13/2019 9:52 AM Note Text: Bed: ED-09 Expected date: 10/13/19 Expected time: 9:52 AM Means of arrival: [facility] FD Comments: AFD [facility] ED PROV NOTEon 10-13-2019 ED PROV NOTE HNO ID: [id number] Author: Shashi Pérez Service: Emergency Medicine Author [...] - Anemia - ARF (acute respiratory failure) ([facility]) - Central cord syndrome ([facility]) - Cognitive impairment - Depression - Dysphagia - Gait abnormality - Heart attack ([facility]) - Hypotension - Neurogenic bladder - Neurogenic bowel - 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 No pertinent surgical history. [...] CT evidence of pulmonary embolism. Mild atelectasis Erosion Control Coordinator: ENEIDA Transcribe Date/Time: Oct 13 2019 12:38P [...] atelectasis although resolving infiltrate is also possible. Erosion Control Coordinator: ENEIDA Transcribe Date/Time: Oct 13 2019 10:30A [...] of the patient and have reviewed the PA/ENGRAVER LETTER note. My locke findings include: History is [...] 2:54 PM Shashi Pérez 10/13/19 1458 Normal [facility] Magnesiumon 10-13-2019 Magnesium [Mass/Vol] 1.7 mg/dL Normal 1.7-2.3 [facility] NT Pro BNPon 10-13-2019 PRO B Natr Peptide 52 pg/mL Normal <125 [facility] PROGRESSon 10-13-2019 PROGRESS HNO ID: [id number] Author: Samantha (Ct) NBA Azul Service: Radiology Author Type: Mechanical Energy Engineer Type: Progress Notes Filed: 10/13/2019 12:27 PM [...] 13, 2019 TIME: 12:26 PM PAGER/CONTACT #: [facility] PROGRESS HNO ID: [id number] Author: NBA Bose (Ct) Service: Radiology Author Type: Mechanical Energy Engineer Type: Progress Notes Filed: 10/13/2019 12:26 PM [...] NBA Bose October 13, 2019 12:26 PM [facility] PROGRESS HNO ID: [id number] Author: Pat Mijares (Rt) Service: Radiology Author Type: Mechanical Energy Engineer Type: Progress Notes Filed: 10/13/2019 10:19 AM [...] David COLLINS(R) October 13, 2019 10:18 AM [facility] Troponin Ton 10-13-2019 Troponin T.cardiac [Mass/Vol] ug/L Normal 0.000-0.029 [facility] XR CHEST 1V FRONTAL PORTon 0 10-13-2019 [...] atelectasis although resolving infiltrate is also possible. Erosion Control Coordinator: ENEIDA Transcribe Date/Time: Oct 13 2019 10:30A Dictated by : MILO SORTO MD This examination was interpreted and the report reviewed and electronically signed by: MILO SORTO MD on Oct 13 2019 10:31AM EST [id number] CN Normal [facility] EKG 12 Leadon 10-09-2019 Atrial Rate 57 BPM [employer] P [place] 76 degrees [employer] [place], [place] P-R Interval 170 ms [employer] [place], [place] Q-T Interval 400 ms [facility] [place], [employer] QRS Duration 92 ms [facility] CenterCamp[facility] [place], [place] QTc Calculation (Bazett) 389 ms [employer] [place], [place] R [place] 51 degrees [employer] [place], [place] T [place] 45 degrees [employer]- [place], [place] Ventricular Rate 57 BPM [facility] Center[facility] [place], [place] Sinus bradycardia with sinus arrhythmia Septal infarct , age undetermined Abnormal ECG No previous ECGs available [employer], [employer] Incoming Ekg Results From [facility] - 10/09/2019 12:35 PM EDT Sinus bradycardia with sinus arrhythmia Septal infarct , age undetermined Abnormal ECG No previous ECGs available [place], [place] POC Glucose Fingerstickon Glucose [Mass/Vol] 115 mg/dL High 75 - 110 mg/dL [place] Interpretation and review of laboratory results Abnormal [place] Glucose [Mass/Vol] 132 mg/dL High 75 - 110 mg/dL [place] Interpretation and review of laboratory results Abnormal [place] Glucose [Mass/Vol] 120 mg/dL High 75 - 110 mg/dL [place] Interpretation and review of laboratory results Abnormal [place] BASIC METABOLIC PANELon Anion gap [Moles/Vol] 10 mmol/L 9 - 17 mmol/L [place] Bun/Cre Ratio NOT REPORTED [place] Calcium [Mass/Vol] 8.4 mg/dL Low 8.6 - 10. 4 mg/dL [place] Chloride [Moles/Vol] 103 mmol/L 98 - 10 7 mmol/L [place] CO2 [Moles/Vol] 28 mmol/L 20 - 31 mmol/L [place] Creatinine [Mass/Vol] 0.67 mg/dL Low 0.7 - 1.2 mg/dL [place] GFR >60 >60 mL/min [place] GFR Non- >60 >60 mL/min [place] GFR/1.73 sq M predicted among non-blacks MDRD (S/P/Bld) [Vol rate/Area] [place] Comment on above: Average GFR for 60-6 9 years old: 85 mL/min/1.73sq m Chronic Kidney Disease: <60 mL/min/1.73sq m Kidney failure: <15 mL/min/1.73sq m eGFR calculated using average adult body mass. Additional eGFR calculator available at: http://www.magnetU.K[employer]/multiple_crcl_2012.htm GFR/1.73 sq M predicted among non-blacks MDRD (S/P/Bld) [Vol rate/Area] NOT REPORTED [place] Glucose [Mass/Vol] 121 mg/dL High 70 - 99 mg/dL [place] Interpretation and review of laboratory results Abnormal [place] Potassium [Moles/Vol] 4.1 mmol/L 3.7 - 5.3 mmol/L [place] Sodium [Moles/Vol] 141 mmol/L 135 - 144 mmol/L [place] Urea nitrogen [Mass/Vol] 10 mg/dL 8 - 23 mg/dL [place] Basic Metabolic Profon 09-27 (cont.) Normal [facility] Comment on above: Result Comment: Aver age GFR for 60-69 years old: 85 mL/min/1.73sq m Chronic Kidney Disease: <60 mL/min/1.73sq m Kidney failure: <15 mL/min/1.73sq m eGFR calculated using average adult body mass. Additional eGFR calculator available at: http://www.[employer]/multiple_crcl_2012.htm Performed By: #### T YS #### [facility] [address] [place] [phone] Retail Representative: Tre Ferrell MD Anion gap [Moles/Vol] 10 mmol/L Normal 9-17 [facility] Comment on above: Performed By: #### T YS #### [facility] [address] [place] [phone] Retail Representative: Tre Ferrell MD Calcium [Mass/Vol] 8.4 mg/dL Low 8.6-10.4 [facility] Comment on above: Performed By: #### T YS #### [facility] [address] [place] [phone] Retail Representative: Tre Ferrell MD Chloride [Moles/Vol] 103 mmol/L Normal 98-107 [facility] Comment on above: Performed By: #### T YS #### [facility] [address] [place] [phone] Retail Representative: Tre Ferrell MD CO2 [Moles/Vol] 28 mmol/L Normal 20-31 [facility] Comment on above: Performed By: #### T YS #### [address] [address] Retail Representative: Tre Ferrell MD Creatinine [Mass/Vol] 0.67 mg/dL Low 0.70-1.20 [facility] Comment on above: Performed By: #### T YS #### [address] [address] Retail Representative: Tre Ferrell MD GFR, Amer >60 Normal >60 [facility] Comment on above: Performed By: #### T YS #### [address] [address] Retail Representative: Tre Ferrell MD GFR,non Amer >60 Normal >60 [facility] Comment on above: Performed By: #### T YS #### [address] [address] Retail Representative: Tre Ferrell MD Glucose [Mass/Vol] 121 mg/dL High 70-99 [facility] Comment on above: Performed By: #### T YS #### [address] [address] Retail Representative: Tre Ferrell MD Potassium [Moles/Vol] 4.1 mmol/L Normal 3.7-5.3 [facility] Comment on above: Performed By: #### T YS #### [address] [address] Retail Representative: Tre Ferrell MD Sodium [Moles/Vol] 141 mmol/L Normal 135-144 [facility] Comment on above: Performed By: #### T YS #### [address] [address] Retail Representative: Tre Ferrell MD Urea nitrogen [Mass/Vol] 10 mg/dL Normal 8-23 [facility] Comment on above: Performed By: #### T YS #### [address] [address] Retail Representative: Tre Ferrell MD BUN/CRE Ratio NOT REPORTED Normal 9- [facility] Comment on above: Performed By: #### T YS #### [address] [address] Retail Representative: Tre Ferrell MD Staging: NOT REPORTED Normal [facility] Comment on above: Performed By: #### T YS #### [address] [address] Retail Representative: Tre Ferrell MD CBCon 09-28-2019 Erythrocyte distribution width (RBC) [Ratio] 12.7 % Normal 11.8-14.4 [facility] Comment on above: Performed By: #### T YS #### [address] [address] Retail Representative: Tre Ferrell MD Hematocrit (Bld) [Volume fraction] 32.0 % Low 40.7-50.3 [facility] Comment on above: Performed By: #### T YS #### [address] [address] Retail Representative: Tre Ferrell MD Hemoglobin (Bld) [Mass/Vol] 10.2 g/dL Low 13.0-17.0 [facility] Comment on above: Performed By: #### T YS #### [address] [address] Retail Representative: Tre Ferrell MD MCH (RBC) [Entitic mass] 29.7 pg Normal 25.2-33.5 [facility] Comment on above: Performed By: #### T YS #### [address] [address] Retail Representative: Tre Ferrell MD MCHC (RBC) [Mass/Vol] 31.9 g/dL Normal 28.4-34.8 [facility] Comment on above: Performed By: #### T YS #### [address] [address] Retail Representative: Tre Ferrell MD MCV (RBC) [Entitic vol] 93.0 fL Normal 82.6-102.9 M [facility] Comment on above: Performed By: #### T YS #### [address] [address] Retail Representative: Tre Ferrell MD NRBC Automated 0.0 per 100 WBC Normal 0.0 [facility] Comment on above: Performed By: #### T YS #### [address] [address] Retail Representative: Tre Ferrell MD Platelet mean volume (Bld) [Entitic vol] 10.4 fL Normal 8.1-13.5 [facility] Comment on above: Performed By: #### T YS #### [address] [address] Retail Representative: Tre Ferrell MD Platelets (Bld) [#/Vol] 173 10*3/uL Normal 138-453 [facility] Comment on above: Performed By: #### T YS #### [address] [address] Retail Representative: Tre Ferrell MD RBC (Bld) [#/Vol] 3.44 10*6/uL Low 4.21-5.77 [facility] Comment on above: Performed By: #### T YS #### [address] [address] Retail Representative: Tre Ferrell MD WBC (Bld) [#/Vol] 7.2 10*3/uL Normal 3.5-11.3 [facility] Comment on above: Performed By: #### T YS #### [facility] [place] [address] Retail Representative: Tre Ferrell MD Erythrocyte distribution width (RBC) [Ratio] 12.7 % 11.8 - 14.4 % [place] Hematocrit (Bld) [Volume fraction] 32.0 % Low 40.7 - 50.3 % [place] Hemoglobin (Bld) [Mass/Vol] 10.2 g/dL Low 13 - 17 g/dL [place] Interpretation and review of laboratory results Abnormal [place] MCH (RBC) [Entitic mass] 29.7 pg 25.2 - 33.5 pg [place] MCHC (RBC) [Mass/Vol] 31.9 g/dL 28.4 - 34.8 g/dL [place] MCV (RBC) [Entitic vol] 93.0 fL 82.6 - 102.9 fL [place] Platelet mean volume (Bld) [Entitic vol] 10.4 fL 8.1 - 13.5 fL [place] Platelets (Bld) [#/Vol] 173 10*3/uL [place] RBC (Bld) [#/Vol] 3.44 10*6/uL Low 4.21 - 5.7 7 m/uL [place] WBC (Bld) [#/Vol] 7.2 10*3/uL [place] WBC (Bld) [#/Vol] 0.0 10*3/uL 0.0 per 10 0 WBC [place] MAGNESIUMon 09-28-2019 Magnesium [Mass/Vol] 1.9 mg/dL 1.6 - 2 .6 mg/dL [place] Magnesiumon 09-28-2019 Magnesium [Mass/Vol] 1.9 mg/dL Normal 1.6-2.6 [facility] Comment on above: Performed By: #### T YS #### [facility] [address] [place] [address] [phone] Retail Representative: Tre Ferrell MD PHOSPHORUSon 09-28-2019 Phosphate [Mass/Vol] 3.8 mg/dL 2.5 - 4 .5 mg/dL [place] POC Glucose Fingerstickon Glucose [Mass/Vol] 111 mg/dL High 75 - 110 mg/dL [place] Interpretation and review of laboratory results Abnormal [place] Glucose [Mass/Vol] 143 mg/dL High 75 - 110 mg/dL [place] Interpretation and review of laboratory results Abnormal [place] Glucose [Mass/Vol] 141 mg/dL High 75 - 110 mg/dL [place] Interpretation and review of laboratory results Abnormal [place] Glucose [Mass/Vol] 106 mg/dL 75 - 110 mg/dL [place] PROTIME-INRon 09-28-2019 INR Coag (PPP) [Relative time] 0.9 {INR} [place] Comment on above: Therapeutic Range: Moderate Anticoagulant Intensity: INR = 2.0-3.0 High Anticoagulant Intensity: INR = 2.5-3.5 PT Coag (PPP) [Time] 9.8 s [place] PTon 09-28-2019 INR Coag (PPP) [Relative time] 0.9 {INR} Normal [facility] Comment on above: Result Comment: Therapeutic Range: Moderate Anticoagulant Intensity: INR = 2.0-3.0 High Anticoagulant Intensity: INR = 2.5-3.5 Performed By: #### T YS #### [facility] [place], [place] [phone] Retail Representative: Tre Ferrell MD PT Coag (PPP) [Time] 9.8 s Normal 9.0-12.0 [facility] Comment on above: Performed By: #### T YS #### [facility] [address] [place], [place] [phone] Retail Representative: Tre Ferrell MD Phosphorus, Inorg.on 020 Phosphorus, Inorg. 3.8 mg/dL Normal 2.5-4.5 [facility] Comment on above: Performed By: #### T YS #### [address] [address] Retail Representative: Tre Ferrell MD Basic Metab w/rfx MGon 09-26 (cont.) Normal [facility] Comment on above: Result Comment: Aver age GFR for 60-69 years old: 85 mL/min/1.73sq m Chronic Kidney Disease: <60 mL/min/1.73sq m Kidney failure: <15 mL/min/1.73sq m eGFR calculated using average adult body mass. Additional eGFR calculator available at: http://www.[employer]/multiple_crcl_2012.htm Performed By: #### T YS #### [place] [address] Retail Representative: Tre Ferrell MD Anion gap [Moles/Vol] 9 mmol/L Normal 9-17 [facility] Comment on above: Performed By: #### T YS #### [address] [address] Retail Representative: Tre Ferrell MD Calcium [Mass/Vol] 8.1 mg/dL Low 8.6-10.4 [facility] Comment on above: Performed By: #### T YS #### [facility] [address] [place] [phone] Retail Representative: Tre Ferrell MD Chloride [Moles/Vol] 106 mmol/L Normal 98-107 [facility] Comment on above: Performed By: #### T YS #### [facility] [address] [place] [phone] Retail Representative: Tre Ferrell MD CO2 [Moles/Vol] 27 mmol/L Normal 20-31 [facility] Comment on above: Performed By: #### T YS #### [address] [address] Retail Representative: Tre Ferrell MD Creatinine [Mass/Vol] 0.63 mg/dL Low 0.70-1.20 [facility] Comment on above: Performed By: #### T YS #### [address] [address] Retail Representative: Tre Ferrell MD GFR, Amer >60 Normal >60 [facility] Comment on above: Performed By: #### T YS #### [address] [address] Retail Representative: Tre Ferrell MD GFR,non Amer >60 Normal >60 [facility] Comment on above: Performed By: #### T YS #### [address] [address] Retail Representative: Tre Ferrell MD Glucose [Mass/Vol] 108 mg/dL High 70-99 [facility] Comment on above: Performed By: #### T YS #### [address] [address] Retail Representative: Tre Ferrell MD Potassium [Moles/Vol] 3.9 mmol/L Normal 3.7-5.3 [facility] Comment on above: Performed By: #### T YS #### [address] [address] Retail Representative: Tre Ferrell MD Sodium [Moles/Vol] 142 mmol/L Normal 135-144 [facility] Comment on above: Performed By: #### T YS #### [address] [address] Retail Representative: Tre Ferrell MD Urea nitrogen [Mass/Vol] 10 mg/dL Normal 8-23 [facility] Comment on above: Performed By: #### T YS #### [facility] [address] [place], [place] [phone] Retail Representative: Tre Ferrell MD BUN/CRE Ratio NOT REPORTED Normal 12-15 [facility] Comment on above: Performed By: #### T YS #### [facility] [address] [place], [place] [phone] Retail Representative: Tre Ferrell MD Staging: NOT REPORTED Normal [facility] Comment on above: Performed By: #### T YS #### [facility] [address] [place], [place] [phone] Retail Representative: Tre Ferrell MD Basic Metabolic Panel w/ Ref kylee to [facility] 09-27-2019 Anion gap [Moles/Vol] 9 mmol/L 9 - 17 mmol/L [place] Bun/Cre Ratio NOT REPORTED [place] Calcium [Mass/Vol] 8.1 mg/dL Low 8.6 - 10. 4 mg/dL [place] Chloride [Moles/Vol] 106 mmol/L 98 - 10 7 mmol/L [place] CO2 [Moles/Vol] 27 mmol/L 20 - 31 mmol/L [place] Creatinine [Mass/Vol] 0.63 mg/dL Low 0.7 - 1.2 mg/dL [place] GFR >60 >60 mL/min [place] GFR Non- >60 >60 mL/min [place] GFR/1.73 sq M predicted among non-blacks MDRD (S/P/Bld) [Vol rate/Area] NOT REPORTED [place] GFR/1.73 sq M predicted among non-blacks MDRD (S/P/Bld) [Vol rate/Area] [place] Comment on above: Average GFR for 60-6 9 years old: 85 mL/min/1.73sq m Chronic Kidney Disease: <60 mL/min/1.73sq m Kidney failure: <15 mL/min/1.73sq m eGFR calculated using average adult body mass. Additional eGFR calculator available at: http://www.magnetU.[employer]/multiple_crcl_2012.htm Glucose [Mass/Vol] 108 mg/dL High 70 - 99 mg/dL [place] Interpretation and review of laboratory results Abnormal [place] Potassium [Moles/Vol] 3.9 mmol/L 3.7 - 5.3 mmol/L [place] Sodium [Moles/Vol] 142 mmol/L 135 - 144 mmol/L [place] Urea nitrogen [Mass/Vol] 10 mg/dL 8 - 23 mg/dL [place] CBC WITH AUTO DIFFERENTIALon 09-27-2019 Basophils (Bld) [#/Vol] 10*3/uL [place] Basophils/100 WBC (Bld) 0 % 0 - 2 % [place] Differential Type NOT REPORTED [place] Eosinophils (Bld) [#/Vol] 0.15 10*3/uL [place] Eosinophils/100 WBC (Bld) 2 % 1 - 4 % [place] Erythrocyte distribution width (RBC) [Ratio] 13.1 % 11.8 - 14.4 % [place] Hematocrit (Bld) [Volume fraction] 30.9 % Low 40.7 - 50.3 % [place] Hemoglobin (Bld) [Mass/Vol] 9.7 g/dL Low 13 - 17 g/dL [place] Immature granulocytes (Bld) [#/Vol] 0 % 0 [place] Immature granulocytes (Bld) [#/Vol] 0.03 10*3/uL [place] Interpretation and review of laboratory results Abnormal [place] Lymphocytes (Bld) [#/Vol] 1.52 10*3/uL [place] Lymphocytes/100 WBC (Bld) 16 % Low 24 - 43 % [place] MCH (RBC) [Entitic mass] 29.0 pg 25.2 - 33.5 pg [place] MCHC (RBC) [Mass/Vol] 31.4 g/dL 28.4 - 34.8 g/dL [place] MCV (RBC) [Entitic vol] 92.5 fL 82.6 - 102.9 fL [place] Monocytes (Bld) [#/Vol] 0.93 10*3/uL [place] Monocytes/100 WBC (Bld) 10 % 3 - 12 % [place] Platelet mean volume (Bld) [Entitic vol] 10.4 fL 8.1 - 13.5 fL [place] Platelets (Bld) [#/Vol] 144 10*3/uL [place] Platelets (Bld) [#/Vol] NOT REPORTED [place] RBC (Bld) [#/Vol] 3.34 10*6/uL Low 4.21 - 5.7 7 m/uL [place] RBC morphology finding Nom (Bld) NOT REPORTED [place] Segmented neutrophils/100 WBC (Bld) 72 % High 36 - 65 % [place] Segs Absolute 6.64 [place] WBC (Bld) [#/Vol] 0.0 10*3/uL 0.0 per 10 0 WBC [place] WBC (Bld) [#/Vol] 9.3 10*3/uL [place] WBC Morphology NOT REPORTED [place] CBC with Diffon 09-27-2019 Abs. Basophil <0.03 Normal 0.00-0.20 [facility] Comment on above: Performed By: #### T YS #### [facility] [address] [place] [phone] Retail Representative: Tre Ferrell MD Abs.Imm.Granulocyte 0.03 k/uL Normal 0.00-0.30 [facility] Comment on above: Performed By: #### T YS #### [facility] [address] [place] [address] [phone] Retail Representative: Tre Ferrell MD Abs.Neutrophil (Seg) 6.64 k/uL Normal 1.50-8.10 [facility] Comment on above: Performed By: #### T YS #### [address] [address] Retail Representative: Tre Ferrell MD Basophils/100 WBC (Bld) 0 % Normal 0-2 M [facility] Comment on above: Performed By: #### T YS #### [address] [address] Retail Representative: Tre Ferrell MD Eosinophils (Bld) [#/Vol] 0.15 10*3/uL Normal 0.00-0.44 [facility] Comment on above: Performed By: #### T YS #### [address] [address] Retail Representative: Tre Ferrell MD Eosinophils/100 WBC (Bld) 2 % Normal 1-4 [facility] Comment on above: Performed By: #### T YS #### [address] [address] Retail Representative: Tre Ferrell MD Erythrocyte distribution width (RBC) [Ratio] 13.1 % Normal 11.8-14.4 [facility] Comment on above: Performed By: #### T YS #### [address] [address] Retail Representative: Tre Ferrell MD Hematocrit (Bld) [Volume fraction] 30.9 % Low 40.7-50.3 [facility] Comment on above: Performed By: #### T YS #### [address] [address] Retail Representative: Tre Ferrell MD Hemoglobin (Bld) [Mass/Vol] 9.7 g/dL Low 13.0-17.0 [facility] Comment on above: Performed By: #### T YS #### [address] [address] Retail Representative: Tre Ferrell MD Immature granulocytes (Bld) [#/Vol] 0 % Normal 0 [facility] Comment on above: Performed By: #### T YS #### [address] [address] Retail Representative: Tre Ferrell MD Lymphocytes (Bld) [#/Vol] 1.52 10*3/uL Normal 1.10-3.70 [facility] Comment on above: Performed By: #### T YS #### [address] [address] Retail Representative: Tre Ferrell MD Lymphocytes/100 WBC (Bld) 16 % Low 24-43 [facility] Comment on above: Performed By: #### T YS #### [address] [address] Retail Representative: Tre Ferrell MD MCH (RBC) [Entitic mass] 29.0 pg Normal 25.2-33.5 [facility] Comment on above: Performed By: #### T YS #### [address] [address] Retail Representative: Tre Ferrell MD MCHC (RBC) [Mass/Vol] 31.4 g/dL Normal 28.4-34.8 [facility] Comment on above: Performed By: #### T YS #### [address] [address] Retail Representative: Tre Ferrell MD MCV (RBC) [Entitic vol] 92.5 fL Normal 82.6-102.9 M [facility] Comment on above: Performed By: #### T YS #### [address] [address] Retail Representative: Tre Ferrell MD Monocytes (Bld) [#/Vol] 0.93 10*3/uL Normal 0.10-1.20 [facility] Comment on above: Performed By: #### T YS #### [address] [address] Retail Representative: Tre Ferrell MD Monocytes/100 WBC (Bld) 10 % Normal 3-12 [facility] Comment on above: Performed By: #### T YS #### [address] [address] Retail Representative: Tre Fererll MD Neutrophil (Seg) 72 % High 36-65 [facility] Comment on above: Performed By: #### T YS #### [address] [address] Retail Representative: Tre Ferrell MD NRBC Automated 0.0 per 100 WBC Normal 0.0 [facility] Comment on above: Performed By: #### T YS #### [address] [address] Retail Representative: Tre Ferrell MD Platelet mean volume (Bld) [Entitic vol] 10.4 fL Normal 8.1-13.5 [facility] Comment on above: Performed By: #### T YS #### [address] [address] Retail Representative: Tre Ferrell MD Platelets (Bld) [#/Vol] 144 10*3/uL Normal 138-453 [facility] Comment on above: Performed By: #### T YS #### [address] [address] Retail Representative: Tre Ferrell MD RBC (Bld) [#/Vol] 3.34 10*6/uL Low 4.21-5.77 [facility] Comment on above: Performed By: #### T YS #### [address] [address] Retail Representative: Tre Ferrell MD WBC (Bld) [#/Vol] 9.3 10*3/uL Normal 3.5-11.3 [facility] Comment on above: Performed By: #### T YS #### [address] [address] Retail Representative: Tre Ferrell MD Auto Diff Performed NOT REPORTED Normal [facility] Comment on above: Performed By: #### T YS #### [address] [address] Retail Representative: Tre Ferrell MD Platelets (Bld) [#/Vol] NOT REPORTED Normal [facility] Comment on above: Performed By: #### T YS #### [address] [address] Retail Representative: Tre Ferrell MD RBC morphology finding Nom (Bld) NOT REPORTED Normal [facility] Comment on above: Performed By: #### T YS #### [address] [address] Retail Representative: Tre Ferrell MD WBC Morphology NOT REPORTED Normal [facility] Comment on above: Performed By: #### T YS #### [address] [address] Retail Representative: Tre Ferrell MD POC Glucose Fingerstickon Glucose [Mass/Vol] 151 mg/dL High 75 - 110 mg/dL [place] Interpretation and review of laboratory results Abnormal [place] Glucose [Mass/Vol] 93 mg/dL 75 - 110 mg/dL [place] XR CHEST PORTABLEon 09-27-19 20 XR [...] Karan Palomo MD 09/27/19 Final result Normal [facility] Interval extubation. Enteric tube stable. Elevation right hemidiaphragm with some opacity medial right base; consider atelectasis; aspiration/pneumonia should also be considered. [place] EXAMINATION: ONE XRAY VIEW OF THE [...] large pleural effusion or pneumothorax. Bones unchanged. [place] Samm, [facility] Incoming Radiant Results From [employer] - 09/27/2019 8:29 AM EDT EXAMINATION: ONE XRAY VIEW OF THE CHEST 09/27/2019 7:18 am COMPARISON: AP chest from 09/26/2019 HISTORY: ORDERING SYSTEM PROVIDED HISTORY: intubated TECHNOLOGIST PROVIDED HISTORY: intubated Reason for Exam: intubated Postop cervical fusion FINDINGS: [place] and cervical hardware again demonstrated; ETT has [...] consider atelectasis; aspiration/pneumonia should also be considered. [place] Arterial Blood Gas, POCon Mino Test NOT REPORTED [place] aPTT Coag (Bld) [Time] NOT REPORTED [place] FIO2 30.0 [place] Mode NOT REPORTED [place] Negative Base Excess, Art NOT REPORTED [place] O2 Device/Flow/% Adult Ventilator Me [place] Oxygen saturation in Blood 97 % 94 - 98 % [place] POC HCO3 31.2 mmol/L High 21 - 28 mmol/L [place] POC pCO2 49.1 High [place] POC pCO2 Temp NOT REPORTED mm Hg [place] POC pH 7.411 [place] POC pH Temp NOT REPORTED [place] POC PO2 88.2 [place] POC pO2 Temp NOT REPORTED mm Hg [place] Positive Base Excess, Art 6 High [place] Sample Site Arterial Line [place] TCO2 (calc), Art 33 mmol/L High 22 - 29 mmol/L [place] Mino Test NOT REPORTED [place] aPTT Coag (Bld) [Time] NOT REPORTED [place] FIO2 30.0 [place] Mode NOT REPORTED [place] Negative Base Excess, Art NOT REPORTED [place] O2 Device/Flow/% Adult Ventilator [place], [place] Oxygen saturation in Blood 98 % 94 - 98 % [place] POC HCO3 29.8 mmol/L High 21 - 28 mmol/L [place] POC pCO2 46.0 [place] POC pCO2 Temp NOT REPORTED mm Hg [place] POC pH 7.420 [place] POC pH Temp NOT REPORTED [place] POC PO2 112.3 High [place] POC pO2 Temp NOT REPORTED mm Hg [place] Positive Base Excess, Art 5 High [place] Sample Site Arterial Line [place] TCO2 (calc), Art 31 mmol/L High 22 - 29 mmol/L [place] Basic Metab w/rfx MGon 09-25 (cont.) Normal [facility] Comment on above: Result Comment: Aver age GFR for 60-69 years old: 85 mL/min/1.73sq m Chronic Kidney Disease: <60 mL/min/1.73sq m Kidney failure: <15 mL/min/1.73sq m eGFR calculated using average adult body mass. Additional eGFR calculator available at: http://www.[employer]/multiple_crcl_2012.htm Performed By: #### E RTPF #### [address] [address] Retail Representative: Tre Ferrell MD Anion gap [Moles/Vol] 9 mmol/L Normal 9-17 [facility] Comment on above: Performed By: #### E RTPF #### [address] [address] Retail Representative: Tre Ferrell MD Calcium [Mass/Vol] 8.2 mg/dL Low 8.6-10.4 [facility] Comment on above: Performed By: #### E RTPF #### [facility] [address] [place] [phone] Retail Representative: Tre Ferrell MD Chloride [Moles/Vol] 103 mmol/L Normal 98-107 [facility] Comment on above: Performed By: #### E RTPF #### [facility] [address] [place] [phone] Retail Representative: Tre Ferrell MD CO2 [Moles/Vol] 26 mmol/L Normal 20-31 [facility] Comment on above: Performed By: #### E RTPF #### [address] [address] Retail Representative: Tre Ferrell MD Creatinine [Mass/Vol] 0.60 mg/dL Low 0.70-1.20 [facility] Comment on above: Performed By: #### E RTPF #### [address] [address] Retail Representative: Tre Ferrell MD GFR, Amer >60 Normal >60 [facility] Comment on above: Performed By: #### E RTPF #### [address] [address] [address] Retail Representative: Tre Ferrell MD GFR,non Amer >60 Normal >60 [facility] Comment on above: Performed By: #### E RTPF #### [address] [address] Retail Representative: Tre Ferrell MD Glucose [Mass/Vol] 158 mg/dL High 70-99 [facility] Comment on above: Performed By: #### E RTPF #### [address] [address] Retail Representative: Tre Ferrell MD Potassium [Moles/Vol] 4.0 mmol/L Normal 3.7-5.3 [facility] Comment on above: Performed By: #### E RTPF #### [address] [address] Retail Representative: Tre Ferrell MD Sodium [Moles/Vol] 138 mmol/L Normal 135-144 [facility] Comment on above: Performed By: #### E RTPF #### [address] [address] Retail Representative: Tre Ferrell MD Urea nitrogen [Mass/Vol] 10 mg/dL Normal 8-23 [facility] Comment on above: Performed By: #### E RTPF #### [facility] [address] [place], [place] [phone] Retail Representative: Tre Ferrell MD BUN/CRE Ratio NOT REPORTED Normal 9-20 [facility] Comment on above: Performed By: #### E RTPF #### [facility] [address] [place], [place] [phone] Retail Representative: Tre Ferrell MD Staging: NOT REPORTED Normal [facility] Comment on above: Performed By: #### E RTPF #### [facility] [address] [place], [place] [phone] Retail Representative: Tre Ferrell MD Basic Metabolic Panel w/ Ref kylee to on 09-26-2019 Anion gap [Moles/Vol] 9 mmol/L 9 - 17 mmol/L [place] Bun/Cre Ratio NOT REPORTED [place] Calcium [Mass/Vol] 8.2 mg/dL Low 8.6 - 10. 4 mg/dL [place] Chloride [Moles/Vol] 103 mmol/L 98 - 10 7 mmol/L [place] CO2 [Moles/Vol] 26 mmol/L 20 - 31 mmol/L [place] Creatinine [Mass/Vol] 0.6 mg/dL Low 0.7 - 1.2 mg/dL [place] GFR >60 >60 mL/min [place] GFR Non- >60 >60 mL/min [place] GFR/1.73 sq M predicted among non-blacks MDRD (S/P/Bld) [Vol rate/Area] [place] Comment on above: Average GFR for 60-6 9 years old: 85 mL/min/1.73sq m Chronic Kidney Disease: <60 mL/min/1.73sq m Kidney failure: <15 mL/min/1.73sq m eGFR calculated using average adult body mass. Additional eGFR calculator available at: http://www.[employer]/multiple_crcl_2012.htm GFR/1.73 sq M predicted among non-blacks MDRD (S/P/Bld) [Vol rate/Area] NOT REPORTED [place] Glucose [Mass/Vol] 158 mg/dL High 70 - 99 mg/dL [place] Interpretation and review of laboratory results Abnormal [place] Potassium [Moles/Vol] 4.0 mmol/L 3.7 - 5.3 mmol/L [place] Sodium [Moles/Vol] 138 mmol/L 135 - 144 mmol/L [place] Urea nitrogen [Mass/Vol] 10 mg/dL 8 - 23 mg/dL [place] CBC WITH AUTO DIFFERENTIALon 09-26-2019 Basophils (Bld) [#/Vol] 0.03 10*3/uL [place] Basophils/100 WBC (Bld) 0 % 0 - 2 % [place] Differential Type NOT REPORTED [place] Eosinophils (Bld) [#/Vol] 0.08 10*3/uL [place] Eosinophils/100 WBC (Bld) 1 % 1 - 4 % [place] Erythrocyte distribution width (RBC) [Ratio] 13.2 % 11.8 - 14.4 % [place] Hematocrit (Bld) [Volume fraction] 30.7 % Low 40.7 - 50.3 % [place] Hemoglobin (Bld) [Mass/Vol] 9.6 g/dL Low 13 - 17 g/dL [place] Immature granulocytes (Bld) [#/Vol] 0.04 10*3/uL [place] Immature granulocytes (Bld) [#/Vol] 1 % High 0 [place] Interpretation and review of laboratory results Abnormal [place] Lymphocytes (Bld) [#/Vol] 1.10 10*3/uL [place] Lymphocytes/100 WBC (Bld) 14 % Low 24 - 43 % [place] MCH (RBC) [Entitic mass] 29.2 pg 25.2 - 33.5 pg [place] MCHC (RBC) [Mass/Vol] 31.3 g/dL 28.4 - 34.8 g/dL [place] MCV (RBC) [Entitic vol] 93.3 fL 82.6 - 102.9 fL [place] Monocytes (Bld) [#/Vol] 0.81 10*3/uL [place] Monocytes/100 WBC (Bld) 10 % 3 - 12 % [place] Platelet mean volume (Bld) [Entitic vol] NOT REPORTED 8.1 - 13.5 fL [place] Platelets (Bld) [#/Vol] NOT REPORTED [place] Platelets (Bld) [#/Vol] See Reflexed IPF Result [place] RBC (Bld) [#/Vol] 3.29 10*6/uL Low 4.21 - 5.7 7 m/uL [place] RBC morphology finding Nom (Bld) NOT REPORTED [place] Segmented neutrophils/100 WBC (Bld) 74 % High 36 - 65 % [place] Segs Absolute 5.82 [place] WBC (Bld) [#/Vol] 7.9 10*3/uL [place] WBC (Bld) [#/Vol] 0.0 10*3/uL 0.0 per 10 0 WBC [place] WBC Morphology NOT REPORTED [place] CBC with Diffon 09-26-2019 Abs. Basophil 0.03 k/uL Normal 0.00-0.20 [facility] Comment on above: Performed By: #### E RTPF #### [facility] [address] [place] [phone] Retail Representative: Tre Ferrell MD Abs.Imm.Granulocyte 0.04 k/uL Normal 0.00-0.30 [facility] Comment on above: Performed By: #### E RTPF #### [address] [address] Retail Representative: Tre Ferrell MD Abs.Neutrophil (Seg) 5.82 k/uL Normal 1.50-8.10 [facility] Comment on above: Performed By: #### E RTPF #### [address] [address] Retail Representative: Tre Ferrell MD Basophils/100 WBC (Bld) 0 % Normal 0-2 M [facility] Comment on above: Performed By: #### E RTPF #### [address] [address] Retail Representative: Tre Ferrell MD Eosinophils (Bld) [#/Vol] 0.08 10*3/uL Normal 0.00-0.44 [facility] Comment on above: Performed By: #### E RTPF #### [address] [address] Retail Representative: Tre Ferrell MD Eosinophils/100 WBC (Bld) 1 % Normal 1-4 [facility] Comment on above: Performed By: #### E RTPF #### [address] [address] Retail Representative: Tre Ferrell MD Erythrocyte distribution width (RBC) [Ratio] 13.2 % Normal 11.8-14.4 [facility] Comment on above: Performed By: #### E RTPF #### [address] [address] Retail Representative: Tre Ferrell MD Hematocrit (Bld) [Volume fraction] 30.7 % Low 40.7-50.3 [facility] Comment on above: Performed By: #### E RTPF #### [address] [address] Retail Representative: Tre Ferrell MD Hemoglobin (Bld) [Mass/Vol] 9.6 g/dL Low 13.0-17.0 [facility] Comment on above: Performed By: #### E RTPF #### [address] [address] Retail Representative: Tre Ferrell MD Immature granulocytes (Bld) [#/Vol] 1 % High 0 [facility] Comment on above: Performed By: #### E RTPF #### [address] [address] Retail Representative: Tre Ferrell MD Lymphocytes (Bld) [#/Vol] 1.10 10*3/uL Normal 1.10-3.70 [facility] Comment on above: Performed By: #### E RTPF #### [address] [address] Retail Representative: Tre Ferrell MD Lymphocytes/100 WBC (Bld) 14 % Low 24-43 [facility] Comment on above: Performed By: #### E RTPF #### [address] [address] Retail Representative: Tre Ferrell MD MCH (RBC) [Entitic mass] 29.2 pg Normal 25.2-33.5 [facility] Comment on above: Performed By: #### E RTPF #### [address] [address] Retail Representative: Tre Ferrell MD MCHC (RBC) [Mass/Vol] 31.3 g/dL Normal 28.4-34.8 [facility] Comment on above: Performed By: #### E RTPF #### [address] [address] Retail Representative: Tre Ferrell MD MCV (RBC) [Entitic vol] 93.3 fL Normal 82.6-102.9 M [facility] Comment on above: Performed By: #### E RTPF #### [address] [address] Retail Representative: Tre Ferrell MD Monocytes (Bld) [#/Vol] 0.81 10*3/uL Normal 0.10-1.20 [facility] Comment on above: Performed By: #### E RTPF #### [address] [address] Retail Representative: Tre Ferrell MD Monocytes/100 WBC (Bld) 10 % Normal 3-12 M [facility] Comment on above: Performed By: #### E RTPF #### [address] [address] Retail Representative: Tre Ferrell MD Neutrophil (Seg) 74 % High 36-65 [facility] Comment on above: Performed By: #### E RTPF #### [address] [address] Retail Representative: Tre Ferrell MD NRBC Automated 0.0 per 100 WBC Normal 0.0 [facility] Comment on above: Performed By: #### E RTPF #### [address] [address] Retail Representative: Tre Ferrell MD Platelets (Bld) [#/Vol] See Reflexed IPF Result Normal 138-453 [facility] Comment on above: Performed By: #### E RTPF #### [address] [address] Retail Representative: Tre Ferrell MD RBC (Bld) [#/Vol] 3.29 10*6/uL Low 4.21-5.77 [facility] Comment on above: Performed By: #### E RTPF #### [address] [address] Retail Representative: Tre Ferrell MD WBC (Bld) [#/Vol] 7.9 10*3/uL Normal 3.5-11.3 [facility] Comment on above: Performed By: #### E RTPF #### [address] [address] Retail Representative: Tre Ferrell MD Auto Diff Performed NOT REPORTED Normal [facility] Comment on above: Performed By: #### E RTPF #### [address] [address] Retail Representative: Tre Ferrell MD Platelet mean volume (Bld) [Entitic vol] NOT REPORTED Normal 8.1-13.5 [facility] Comment on above: Performed By: #### E RTPF #### [address] [address] Retail Representative: Tre Ferrell MD Platelets (Bld) [#/Vol] NOT REPORTED Normal [facility] Comment on above: Performed By: #### E RTPF #### [address] [address] Retail Representative: Tre Ferrell MD RBC morphology finding Nom (Bld) NOT REPORTED Normal [facility] Comment on above: Performed By: #### E RTPF #### [address] [address] Retail Representative: Tre Ferrell MD WBC Morphology NOT REPORTED Normal [facility] Comment on above: Performed By: #### E RTPF #### [address] [address] Retail Representative: Tre Ferrell MD Extubationon 09-26-2019 Braden Ziegler RCP 09/26/2019 6:36 PM Order obtained for extubation. SpO2 of 30 on 100% FiO2. Patient extubated and placed on 30% O2 via HFNC. Patient had mild cough that was productive of clear and white sputum. Extubation Well tolerated by patient.. Breath Sounds: clear BRADEN Jasen EMMANUELTZ 6:35 PM [place] Immature Platelet Fractionon 09-26-2019 Interpretation and review of laboratory results Abnormal [place] Platelet, Fluorescence [address] [place] Comment on above: ORDERED BY LAB Platelet, Immature Fraction 4.7 % 1.1 - 10.3 % [place] Comment on above: ORDERED BY LAB Lactic Acid, POCon 0 POC Lactic Acid 0.35 mmol/L Low 0.56 - 1.39 mmol/L [place] POC Lactic Acid 0.32 mmol/L Low 0.56 - 1.39 mmol/L [place] Otheron 09-26-2019 Interpretation and review of laboratory results Abnormal [place] Interpretation and review of laboratory results Abnormal [place] PLT, Immature Fract.on 09-25 Platelet, Fluoresc. 123 k/uL Low 138-453 [facility] Comment on above: Result Comment: ORDE RED BY LAB Performed By: #### E RTPF #### [facility] [address] [place] [phone] Retail Representative: Tre Ferrell MD PLT, Immature Fract. 4.7 % Normal 1.1-10.3 [facility] Comment on above: Result Comment: ORDE RED BY LAB Performed By: #### E RTPF #### [facility] [address] [place] [address] Retail Representative: Tre Ferrell MD POC Glucose Fingerstickon Glucose [Mass/Vol] 88 mg/dL 75 - 110 mg/dL [place] Glucose [Mass/Vol] 122 mg/dL High 75 - 110 mg/dL [place] Interpretation and review of laboratory results Abnormal [place] Glucose [Mass/Vol] 124 mg/dL High 75 - 110 mg/dL [place] Interpretation and review of laboratory results Abnormal [place] POCT Glucoseon 09-26-2019 Glucose [Mass/Vol] 130 mg/dL High 74 - 100 mg/dL [place] Glucose [Mass/Vol] 156 mg/dL High 74 - 100 mg/dL [place] XR CHEST PORTABLEon 09-26-19 20 XR [...] Dewayne Lopez MD 09/26/19 Final result Normal [facility] No acute cardiopulmonary process. Stable support tubes. [place] Samm, [facility] Incoming Radiant Results From [id number] - 09/26/2019 10:01 AM EDT EXAMINATION: ONE [...] No acute cardiopulmonary process. Stable support tubes. [place] EXAMINATION: ONE XRAY VIEW OF THE [...] tube and the tip is not visualized. [place] Arterial Blood Gas, POCon Mino Test NOT REPORTED [place] aPTT Coag (Bld) [Time] NOT REPORTED [place] FIO2 30.0 [place] Mode NOT REPORTED [place] Negative Base Excess, Art NOT REPORTED [place] O2 Device/Flow/% Adult Ventilator [place] Oxygen saturation in Blood 98 % 94 - 98 % [place] POC HCO3 25.9 mmol/L 21 - 28 mmol/L [place] POC pCO2 45.8 [place] POC pCO2 Temp NOT REPORTED mm Hg [place] POC pH 7.361 [place] POC pH Temp NOT REPORTED [place] POC PO2 100.9 [place] POC pO2 Temp NOT REPORTED mm Hg [place] Positive Base Excess, Art 0 [place] Sample Site Arterial Line [place] TCO2 (calc), Art 27 mmol/L 22 - 29 mmol/L [place] Basic Metab w/rfx MGon 09-24 (cont.) Normal [facility] Comment on above: Result Comment: Aver age GFR for 60-69 years old: 85 mL/min/1.73sq m Chronic Kidney Disease: <60 mL/min/1.73sq m Kidney failure: <15 mL/min/1.73sq m eGFR calculated using average adult body mass. Additional eGFR calculator available at: http://www.[employer]/multiple_crcl_2012.htm Performed By: #### E RTPF #### [facility] [address] [place] [address] Retail Representative: Tre Ferrell MD Anion gap [Moles/Vol] 11 mmol/L Normal 9-17 [facility] Comment on above: Performed By: #### E RTPF #### [address] [address] Retail Representative: Tre Ferrell MD Calcium [Mass/Vol] 8.1 mg/dL Low 8.6-10.4 [facility] Comment on above: Performed By: #### E RTPF #### [address] [address] Retail Representative: Tre Ferrell MD Chloride [Moles/Vol] 110 mmol/L High 98-107 [facility] Comment on above: Performed By: #### E RTPF #### [address] [address] Retail Representative: Tre Ferrell MD CO2 [Moles/Vol] 21 mmol/L Normal 20-31 [facility] Comment on above: Performed By: #### E RTPF #### [address] [address] Retail Representative: Tre Ferrell MD Creatinine [Mass/Vol] 0.73 mg/dL Normal 0.70-1.20 [facility] Comment on above: Performed By: #### E RTPF #### [address] [address] Retail Representative: Tre Ferrell MD GFR, Amer >60 Normal >60 [facility] Comment on above: Performed By: #### E RTPF #### [address] [address] Retail Representative: Tre Ferrell MD GFR,non Amer >60 Normal >60 [facility] Comment on above: Performed By: #### E RTPF #### [address] [address] Retail Representative: Tre Ferrell MD Glucose [Mass/Vol] 134 mg/dL High 70-99 [facility] Comment on above: Performed By: #### E RTPF #### [address] [address] Retail Representative: Tre Ferrell MD Potassium [Moles/Vol] 4.1 mmol/L Normal 3.7-5.3 [facility] Comment on above: Performed By: #### E RTPF #### [address] [address] Retail Representative: Tre Ferrell MD Sodium [Moles/Vol] 142 mmol/L Normal 135-144 [facility] Comment on above: Performed By: #### E RTPF #### [address] [address] Retail Representative: Tre Ferrell MD Urea nitrogen [Mass/Vol] 13 mg/dL Normal 8- [facility] Comment on above: Performed By: #### E RTPF #### [address] [address] Retail Representative: Tre Ferrell MD BUN/CRE Ratio NOT REPORTED Normal 12-15 [facility] Comment on above: Performed By: #### E RTPF #### [address] [address] Retail Representative: Tre Ferrell MD Staging: NOT REPORTED Normal [facility] Comment on above: Performed By: #### E RTPF #### [address] [address] Retail Representative: Tre Ferrell MD Basic Metabolic Panel w/ Ref kylee to MGon 09-25-2019 Anion gap [Moles/Vol] 11 mmol/L 9 - 17 mmol/L [place] Bun/Cre Ratio NOT REPORTED [place] Calcium [Mass/Vol] 8.1 mg/dL Low 8.6 - 10. 4 mg/dL [place] Chloride [Moles/Vol] 110 mmol/L High 98 - 10 7 mmol/L [place] CO2 [Moles/Vol] 21 mmol/L 20 - 31 mmol/L [place] Creatinine [Mass/Vol] 0.73 mg/dL 0.7 - 1.2 mg/dL [place] GFR >60 >60 mL/min [place] GFR Non- >60 >60 mL/min [place] GFR/1.73 sq M predicted among non-blacks MDRD (S/P/Bld) [Vol rate/Area] [place] Comment on above: Average GFR for 60-6 9 years old: 85 mL/min/1.73sq m Chronic Kidney Disease: <60 mL/min/1.73sq m Kidney failure: <15 mL/min/1.73sq m eGFR calculated using average adult body mass. Additional eGFR calculator available at: http://www.[employer]/multiple_crcl_2012.htm GFR/1.73 sq M predicted among non-blacks MDRD (S/P/Bld) [Vol rate/Area] NOT REPORTED [place] Glucose [Mass/Vol] 134 mg/dL High 70 - 99 mg/dL [place] Interpretation and review of laboratory results Abnormal [place] Potassium [Moles/Vol] 4.1 mmol/L 3.7 - 5.3 mmol/L [place] Sodium [Moles/Vol] 142 mmol/L 135 - 144 mmol/L [place] Urea nitrogen [Mass/Vol] 13 mg/dL 8 - 23 mg/dL [place] CBC WITH AUTO DIFFERENTIALon 09-25-2019 Basophils (Bld) [#/Vol] 10*3/uL [place] Basophils/100 WBC (Bld) 0 % 0 - 2 % [place] Differential Type NOT REPORTED [place] Eosinophils (Bld) [#/Vol] 10*3/uL [place] Eosinophils/100 WBC (Bld) 0 % Low 1 - 4 % [place] Erythrocyte distribution width (RBC) [Ratio] 13.5 % 11.8 - 14.4 % [place] Hematocrit (Bld) [Volume fraction] 32.9 % Low 40.7 - 50.3 % [place] Hemoglobin (Bld) [Mass/Vol] 10.1 g/dL Low 13 - 17 g/dL [place] Immature granulocytes (Bld) [#/Vol] 0.06 10*3/uL [place] Immature granulocytes (Bld) [#/Vol] 1 % High 0 [place] Interpretation and review of laboratory results Abnormal [place] Lymphocytes (Bld) [#/Vol] 1.20 10*3/uL [place] Lymphocytes/100 WBC (Bld) 12 % Low 24 - 43 % [place] MCH (RBC) [Entitic mass] 28.5 pg 25.2 - 33.5 pg [place] MCHC (RBC) [Mass/Vol] 30.7 g/dL 28.4 - 34.8 g/dL [place] MCV (RBC) [Entitic vol] 92.9 fL 82.6 - 102.9 fL [place] Monocytes (Bld) [#/Vol] 1.34 10*3/uL High [place] Monocytes/100 WBC (Bld) 14 % High 3 - 12 % [place] Platelet mean volume (Bld) [Entitic vol] NOT REPORTED 8.1 - 13.5 fL [place] Platelets (Bld) [#/Vol] See Reflexed IPF Result [place] Platelets (Bld) [#/Vol] NOT REPORTED [place] RBC (Bld) [#/Vol] 3.54 10*6/uL Low 4.21 - 5.7 7 m/uL [place] RBC morphology finding Nom (Bld) NOT REPORTED [place] Segmented neutrophils/100 WBC (Bld) 74 % High 36 - 65 % [place] Segs Absolute 7.33 [place] WBC (Bld) [#/Vol] 10.0 10*3/uL [place] WBC (Bld) [#/Vol] 0.0 10*3/uL 0.0 per 10 0 WBC [place] WBC Morphology NOT REPORTED [place] CBC with Diffon 09-25-2019 Abs. Basophil <0.03 Normal 0.00-0.20 [facility] Comment on above: Performed By: #### E RTPF #### [address] [address] Retail Representative: Tre Ferrell MD Abs.Imm.Granulocyte 0.06 k/uL Normal 0.00-0.30 [facility] Comment on above: Performed By: #### E RTPF #### [address] [address] Retail Representative: Tre Ferrell MD Abs.Neutrophil (Seg) 7.33 k/uL Normal 1.50-8.10 [facility] Comment on above: Performed By: #### E RTPF #### [address] [address] Retail Representative: Tre Ferrell MD Basophils/100 WBC (Bld) 0 % Normal 0-2 M [facility] Comment on above: Performed By: #### E RTPF #### [address] [address] Retail Representative: Tre Ferrell MD Eosinophils (Bld) [#/Vol] 10*3/uL Normal 0.00-0.44 [facility] Comment on above: Performed By: #### E RTPF #### [address] [address] Retail Representative: Tre Ferrell MD Eosinophils/100 WBC (Bld) 0 % Low 1-4 [facility] Comment on above: Performed By: #### E RTPF #### [address] [address] Retail Representative: Tre Ferrell MD Erythrocyte distribution width (RBC) [Ratio] 13.5 % Normal 11.8-14.4 [facility] Comment on above: Performed By: #### E RTPF #### [address] [address] Retail Representative: Tre Ferrell MD Hematocrit (Bld) [Volume fraction] 32.9 % Low 40.7-50.3 [facility] Comment on above: Performed By: #### E RTPF #### [address] [address] Retail Representative: Tre Ferrell MD Hemoglobin (Bld) [Mass/Vol] 10.1 g/dL Low 13.0-17.0 [facility] Comment on above: Performed By: #### E RTPF #### [address] [address] Retail Representative: Tre Ferrell MD Immature granulocytes (Bld) [#/Vol] 1 % High 0 [facility] Comment on above: Performed By: #### E RTPF #### [address] [address] Retail Representative: Tre Ferrell MD Lymphocytes (Bld) [#/Vol] 1.20 10*3/uL Normal 1.10-3.70 [facility] Comment on above: Performed By: #### E RTPF #### [address] [address] Retail Representative: Tre Ferrell MD Lymphocytes/100 WBC (Bld) 12 % Low 24-43 [facility] Comment on above: Performed By: #### E RTPF #### [address] [address] Retail Representative: Tre Ferrell MD MCH (RBC) [Entitic mass] 28.5 pg Normal 25.2-33.5 [facility] Comment on above: Performed By: #### E RTPF #### [address] [address] Retail Representative: Tre Ferrell MD MCHC (RBC) [Mass/Vol] 30.7 g/dL Normal 28.4-34.8 [facility] Comment on above: Performed By: #### E RTPF #### [address] [address] Retail Representative: Tre Ferrell MD MCV (RBC) [Entitic vol] 92.9 fL Normal 82.6-102.9 [facility] Comment on above: Performed By: #### E RTPF #### [address] [address] Retail Representative: Tre Ferrell MD Monocytes (Bld) [#/Vol] 1.34 10*3/uL High 0.10-1.20 [facility] Comment on above: Performed By: #### E RTPF #### [address] [address] Retail Representative: Tre Ferrell MD Monocytes/100 WBC (Bld) 14 % High 3-12 M [facility] Comment on above: Performed By: #### E RTPF #### [address] [address] Retail Representative: Tre Ferrell MD Neutrophil (Seg) 74 % High 36-65 [facility] Comment on above: Performed By: #### E RTPF #### [address] [address] Retail Representative: Tre Ferrell MD NRBC Automated 0.0 per 100 WBC Normal 0.0 [facility] Comment on above: Performed By: #### E RTPF #### [address] [address] Retail Representative: Tre Ferrell MD Platelets (Bld) [#/Vol] See Reflexed IPF Result Normal 138-453 [facility] Comment on above: Performed By: #### E RTPF #### [address] [address] Retail Representative: Tre Ferrell MD RBC (Bld) [#/Vol] 3.54 10*6/uL Low 4.21-5.77 [facility] Comment on above: Performed By: #### E RTPF #### [address] [address] Retail Representative: Tre Ferrell MD WBC (Bld) [#/Vol] 10.0 10*3/uL Normal 3.5-11.3 [facility] Comment on above: Performed By: #### E RTPF #### [address] [address] Retail Representative: Tre Ferrell MD Auto Diff Performed NOT REPORTED Normal [facility] Comment on above: Performed By: #### E RTPF #### [address] [address] Retail Representative: Tre Ferrell MD Platelet mean volume (Bld) [Entitic vol] NOT REPORTED Normal 8.1-13.5 [facility] Comment on above: Performed By: #### E RTPF #### [address] [address] Retail Representative: Tre Ferrell MD Platelets (Bld) [#/Vol] NOT REPORTED Normal [facility] Comment on above: Performed By: #### E RTPF #### [address] [place] [address] Retail Representative: Tre Ferrell MD RBC morphology finding Nom (Bld) NOT REPORTED Normal [facility] Comment on above: Performed By: #### E RTPF #### [address] [address] Retail Representative: Tre Ferrell MD WBC Morphology NOT REPORTED Normal [facility] Comment on above: Performed By: #### E RTPF #### [address] [address] Retail Representative: Tre Ferrell MD Immature Platelet Fractionon 09-25-2019 Interpretation and review of laboratory results Abnormal [place] Platelet, Fluorescence [address] [place] Comment on above: ORDERED BY LAB Platelet, Immature Fraction 4.3 % 1.1 - 10.3 % [place] Comment on above: ORDERED BY LAB Lactic Acid, POCon 0 POC Lactic Acid 0.68 mmol/L 0.56 - 1.39 mmol/L [place] PLT, Immature Fract.on 09-24 Platelet, Fluoresc. 129 k/uL Low 138-453 [facility] Comment on above: Result Comment: ORDE RED BY LAB Performed By: #### E RTPF #### [address] [address] Retail Representative: Tre Ferrell MD PLT, Immature Fract. 4.3 % Normal 1.1-10.3 [facility] Comment on above: Result Comment: ORDE RED BY LAB Performed By: #### E RTPF #### [address] [address] Retail Representative: Tre Ferrell MD XR CERVICAL SPINE (2-3 [...] Beverly Allen DO 09/25/19 Final result Normal [facility] Status post C3-C5 posterior decompression and fusion. [place] EXAMINATION: 2 XRAY VIEWS OF THE [...] C6-C7. Endotracheal and enteric tubes are noted. [place], [place] Incoming Radiant Results From [facility] - 09/25/2019 4:44 PM EDT EXAMINATION: 2 [...] Status post C3-C5 posterior decompression and fusion. [place] Arterial Blood Gas, POCon Mino Test NOT REPORTED [place] aPTT Coag (Bld) [Time] NOT REPORTED [place] FIO2 30.0 [place] Mode [place] Negative Base Excess, Art NOT REPORTED [place] O2 Device/Flow/% Adult Ventilator [place], [place] Oxygen saturation in Blood 97 % 94 - 98 % [place] POC HCO3 24.7 mmol/L 21 - 28 mmol/L [place] POC pCO2 41.7 [place] POC pCO2 Temp NOT REPORTED mm Hg [place] POC pH 7.381 [place] POC pH Temp NOT REPORTED [place] POC PO2 97.7 [place] POC pO2 Temp NOT REPORTED mm Hg [place], [place] Positive Base Excess, Art 0 [place] Sample Site Arterial Line [place] TCO2 (calc), Art 26 mmol/L 22 - 29 mmol/L [place] Mino Test NOT REPORTED [place] aPTT Coag (Bld) [Time] NOT REPORTED [place] FIO2 60.0 [place] Mode [place] Negative Base Excess, Art 2 [place] O2 Device/Flow/% Adult Ventilator [place], [place] Oxygen saturation in Blood 100 % High 94 - 98 % [place] POC HCO3 23.7 mmol/L 21 - 28 mmol/L [place] POC pCO2 45.3 [place] POC pCO2 Temp NOT REPORTED mm Hg [place] POC pH 7.327 Low [place] POC pH Temp NOT REPORTED [place] POC PO2 242.1 High [place] POC pO2 Temp NOT REPORTED mm Hg [place] Positive Base Excess, Art NOT REPORTED [place] Sample Site Arterial Line [place] TCO2 (calc), Art 25 mmol/L 22 - 29 mmol/L [place] Basic Metab w/rfx MGon 09-23 (cont.) Normal [facility] Comment on above: Result Comment: Aver age GFR for 60-69 years old: 85 mL/min/1.73sq m Chronic Kidney Disease: <60 mL/min/1.73sq m Kidney failure: <15 mL/min/1.73sq m eGFR calculated using average adult body mass. Additional eGFR calculator available at: http://www.[employer]/multiple_crcl_2012.htm Performed By: #### E RTPF #### [address] [address] Retail Representative: Tre Ferrell MD GFR, Amer >60 Normal >60 [facility] Comment on above: Performed By: #### E RTPF #### [address] [phone] Retail Representative: Tre Ferrell MD GFR,non Amer >60 Normal >60 [facility] Comment on above: Performed By: #### E RTPF #### [address] [phone] Retail Representative: Tre Ferrell MD BUN/CRE Ratio NOT REPORTED Normal -20 [facility] Comment on above: Performed By: #### E RTPF #### [address] [phone] Retail Representative: Tre Ferrell MD Staging: NOT REPORTED Normal [facility] Comment on above: Performed By: #### E RTPF #### [address] [place] [address] Retail Representative: Tre Ferrell MD Calcium [Mass/Vol] 8.1 mg/dL Low 8.6-10.4 [place] Comment on above: Performed By: #### E RTPF #### [address] [address] Retail Representative: Tre Ferrell MD CO2 [Moles/Vol] 21 mmol/L Normal 20-31 [place] Comment on above: Performed By: #### E RTPF #### [address] [address] Retail Representative: Tre Ferrell MD Creatinine [Mass/Vol] 0.64 mg/dL Low 0.70-1.20 [place] Comment on above: Performed By: #### E RTPF #### [address] [address] Retail Representative: Tre Ferrell MD Glucose [Mass/Vol] 154 mg/dL High 70-99 [place] Comment on above: Performed By: #### E RTPF #### [address] [address] Retail Representative: Tre Ferrell MD Potassium [Moles/Vol] 4.5 mmol/L Normal 3.7-5.3 [place] Comment on above: Performed By: #### E RTPF #### [address] [address] Retail Representative: Tre Ferrell MD Sodium [Moles/Vol] 142 mmol/L Normal 135-144 [place] Comment on above: Performed By: #### E RTPF #### [address] [address] Retail Representative: Tre Ferrell MD Urea nitrogen [Mass/Vol] 15 mg/dL Normal 8-23 [place] Comment on above: Performed By: #### E RTPF #### [facility] [address] [place], [place] [phone] Retail Representative: Tre Ferrell MD Anion gap [Moles/Vol] 12 mmol/L Normal 9-17 [place] Comment on above: Performed By: #### E RTPF #### [facility] [address] [place], [place] [phone] Retail Representative: Tre Ferrell MD Chloride [Moles/Vol] 109 mmol/L High 98-107 [place], [place] Comment on above: Performed By: #### E RTPF #### [facility] [address] [place], [place] [phone] Retail Representative: Tre Ferrell MD Basic Metabolic Panel w/ Ref kylee to MGon 09-24-2019 Bun/Cre Ratio NOT REPORTED [place] GFR >60 >60 mL/min [place], [place] GFR Non- >60 >60 mL/min [place] GFR/1.73 sq M predicted among non-blacks MDRD (S/P/Bld) [Vol rate/Area] [place] Comment on above: Average GFR for 60-6 9 years old: 85 mL/min/1.73sq m Chronic Kidney Disease: <60 mL/min/1.73sq m Kidney failure: <15 mL/min/1.73sq m eGFR calculated using average adult body mass. Additional eGFR calculator available at: http://www.[employer]/multiple_crcl_2012.htm GFR/1.73 sq M predicted among non-blacks MDRD (S/P/Bld) [Vol rate/Area] NOT REPORTED [place] Interpretation and review of laboratory results Abnormal [place] CALCIUM, IONIC (POC)on 09-23 POC Ionized Calcium 1.17 mmol/L 1.15 - 1 .33 mmol/L [place] CBCon 09-24-2019 Erythrocyte distribution width (RBC) [Ratio] 13.1 % Normal 11.8-14.4 [facility] Comment on above: Performed By: #### BRANDY Nunez DAU #### [facility] [address] [place] [phone] Retail Representative: Tre Ferrell MD Hematocrit (Bld) [Volume fraction] 37.3 % Low 40.7-50.3 [facility] Comment on above: Performed By: #### BRANDY Nunez DAU #### [facility] [address] [place] [address] Retail Representative: Tre Ferrell MD Hemoglobin (Bld) [Mass/Vol] 11.8 g/dL Low 13.0-17.0 [facility] Comment on above: Performed By: #### BRANDY Nunez DAU #### [address] [address] Retail Representative: Tre Ferrell MD MCH (RBC) [Entitic mass] 28.9 pg Normal 25.2-33.5 [facility] Comment on above: Performed By: #### BRANDY Nunez DAU #### [facility] [address] [place] [phone] Retail Representative: Tre Ferrell MD MCHC (RBC) [Mass/Vol] 31.6 g/dL Normal 28.4-34.8 [facility] Comment on above: Performed By: #### BRANDY Nunez DAU #### [facility] [address] [place] [phone] Retail Representative: Tre Ferrell MD MCV (RBC) [Entitic vol] 91.4 fL Normal 82.6-102.9 M [facility] Comment on above: Performed By: #### BRANDY Nunez DAU #### [facility] [address] [place] [phone] Retail Representative: Tre Ferrell MD NRBC Automated 0.0 per 100 WBC Normal 0.0 [facility] Comment on above: Performed By: #### BRANDY Nunez DAU #### [facility] [address] [place] [phone] Retail Representative: Tre Ferrell MD Platelets (Bld) [#/Vol] See Reflexed IPF Result Normal 138-453 [facility] Comment on above: Performed By: #### BRANDY Nunez DAU #### [facility] [address] [place] [phone] Retail Representative: Tre Ferrell MD RBC (Bld) [#/Vol] 4.08 10*6/uL Low 4.21-5.77 [facility] Comment on above: Performed By: #### BRANDY Nunez DAU #### [facility] [address] [place] [phone] Retail Representative: Tre Ferrell MD WBC (Bld) [#/Vol] 6.7 10*3/uL Normal 3.5-11.3 [facility] Comment on above: Performed By: #### BRANDY Nunez DAU #### [facility] [address] [place] [phone] Retail Representative: Tre Ferrell MD Platelet mean volume (Bld) [Entitic vol] NOT REPORTED Normal 8.1-13.5 [facility] Comment on above: Performed By: #### BRANDY Nunez DAU #### [facility] [address] [place] [phone] Retail Representative: Tre Fererll MD Erythrocyte distribution width (RBC) [Ratio] 13.1 % 11.8 - 14.4 % [place] Hematocrit (Bld) [Volume fraction] 37.3 % Low 40.7 - 50.3 % [place] Hemoglobin (Bld) [Mass/Vol] 11.8 g/dL Low 13 - 17 g/dL [place] Interpretation and review of laboratory results Abnormal [place] MCH (RBC) [Entitic mass] 28.9 pg 25.2 - 33.5 pg [place] MCHC (RBC) [Mass/Vol] 31.6 g/dL 28.4 - 34.8 g/dL [place] MCV (RBC) [Entitic vol] 91.4 fL 82.6 - 102.9 fL [place] Platelet mean volume (Bld) [Entitic vol] NOT REPORTED 8.1 - 13.5 fL [place] Platelets (Bld) [#/Vol] See Reflexed IPF Result [place] RBC (Bld) [#/Vol] 4.08 10*6/uL Low 4.21 - 5.7 7 m/uL [place] WBC (Bld) [#/Vol] 0.0 10*3/uL 0.0 per 10 0 WBC [place] WBC (Bld) [#/Vol] 6.7 10*3/uL [place] Creatinine W/GFR Point of Ca reon 09-24-2019 Creatinine [Mass/Vol] 1.03 mg/dL 0.51 - 1.19 mg/dL [place] GFR Non- CANNOT BE CALCULATED >60 mL/min [place] GFR/1.73 sq M predicted among non-blacks MDRD (S/P/Bld) [Vol rate/Area] [place] Comment on above: Average GFR for 60-6 9 years old: 85 mL/min/1.73sq m Chronic Kidney Disease: <60 mL/min/1.73sq m Kidney failure: <15 mL/min/1.73sq m eGFR calculated using average adult body mass. Additional eGFR calculator available at: http://www.[employer]/multiple_crcl_2012.htm GFR/1.73 sq M predicted among non-blacks MDRD (S/P/Bld) [Vol rate/Area] CANNOT BE CALCULATED >60 mL/min [place] Hemoglobin and hematocrit, b loodon 09-24-2019 Hematocrit (Bld) [Volume fraction] 37 % Low 41 - 53 % [place] Hemoglobin (Bld) [Mass/Vol] 12.7 g/dL Low 13.5 - 17.5 g/dL [place] Immature Platelet Fractionon 09-24-2019 Interpretation and review of laboratory results Abnormal [place] Platelet, Fluorescence 129 [place] Comment on above: ORDERED BY LAB Platelet, Immature Fraction 4.3 % 1.1 - 10.3 % [place] Comment on above: ORDERED BY LAB Lactic Acidon 09-24-2019 Lactate [Moles/Vol] 1.9 mmol/L Normal 0.7-2.1 [facility] Comment on above: Performed By: #### BRANDY Nunez DAU #### [facility] [address] [place] [address] [phone] Retail Representative: Tre Ferrell MD Lactate [Moles/Vol] NOT REPORTED Normal [facility] Comment on above: Performed By: #### BRANDY Nunez DAU #### [facility] [address] [place] [address] [phone] Retail Representative: Tre Ferrell MD Lactic Acid, POCon 0 POC Lactic Acid 0.92 mmol/L 0.56 - 1.39 mmol/L [place] POC Lactic Acid 2.45 mmol/L High 0.56 - 1.39 mmol/L [place] Lactic acid, plasmaon 2019 Lactate [Moles/Vol] NOT REPORTED mmol/L [place] Lactic Acid, Whole Blood 1.9 mmol/L 0.7 - 2.1 mmol/L [place] Otheron 09-24-2019 Interpretation and review of laboratory results Abnormal [place] PLT, Immature Fract.on 09-23 Platelet, Fluoresc. 129 k/uL Low 138-453 [facility] Comment on above: Result Comment: ORDE RED BY LAB Performed By: #### U A, UMICAO, MK #### [facility] [address] [place] [address] Retail Representative: Tre Ferrell MD PLT, Immature Fract. 4.3 % Normal 1.1-10.3 [facility] Comment on above: Result Comment: ORDE RED BY LAB Performed By: #### BRANDY Nunez DAU #### [facility] [address] [place] [address] Retail Representative: Tre Ferrell MD POCT Glucoseon 09-24-2019 Glucose [Mass/Vol] 97 mg/dL 74 - 100 mg/dL [place] POTASSIUM (POC)on 09-24-2019 Potassium [Moles/Vol] 3.6 mmol/L 3.5 - 4.5 mmol/L [place] SODIUM (POC)on 09-24-2019 Sodium [Moles/Vol] 145 mmol/L 138 - 146 mmol/L [place] XR CERVICAL SPINE (2-3 VIEWS )on [...] Dameon Ramirez MD 09/24/19 Final result Normal [facility] EXAMINATION: 2 XRAY VIEWS OF THE [...] on these views. Support tubes in place. [facility] CT Intraoperative views of posterior fusion of C3, C4 and C5. [place] Incoming Radiant Results From [facility] - 09/24/2019 7:55 AM EDT EXAMINATION: 2 [...] posterior fusion of C3, C4 and C5. [place] XR CHEST PORTABLEon 09-24-19 20 XR [...] Fede Stafford MD 09/24/19 Final result Normal [facility] EXAMINATION: ONE XRAY VIEW OF THE [...] is stable. The osseous structures are stable. [place] Incoming Radiant Results From [facility] - 09/24/2019 2:08 PM EDT EXAMINATION: ONE [...] structures are stable. IMPRESSION: No acute process. [place] No acute process. [place] AMMONIAon 09-23-2019 Ammonia (P) [Mass/Vol] 37 umol/L 16 - 60 umol/L [place] Ammoniaon 09-23-2019 Ammonia (P) [Mass/Vol] 37 umol/L Normal 16-60 [facility] Comment on above: Performed By: #### BRANDY Nunez DAU #### [facility] [place] [address] Retail Representative: Tre Ferrell MD Arterial Blood Gas, POCon Mino Test NOT REPORTED [place] aPTT Coag (Bld) [Time] NOT REPORTED [place] FIO2 30.0 [place] Mode PRVC [place] Negative Base Excess, Art NOT REPORTED [place] O2 Device/Flow/% Adult Ventilator [place], [place] Oxygen saturation in Blood 94 % 94 - 98 % [place] POC HCO3 27.3 mmol/L 21 - 28 mmol/L [place] POC pCO2 50.8 High [place] POC pCO2 Temp NOT REPORTED mm Hg [place], [place] POC pH 7.338 Low [place], [place] POC pH Temp NOT REPORTED [place], [place] POC PO2 76.9 Low [place] POC pO2 Temp NOT REPORTED mm Hg [place] Positive Base Excess, Art 1 [place] Sample Site Arterial [facility] TCO2 (calc), Art 29 mmol/L 22 - 29 mmol/L [place] Basic Metab w/rfx MGon 09-22 (cont.) Normal [facility] Comment on above: Result Comment: Aver age GFR for 60-69 years old: 85 mL/min/1.73sq m Chronic Kidney Disease: <60 mL/min/1.73sq m Kidney failure: <15 mL/min/1.73sq m eGFR calculated using average adult body mass. Additional eGFR calculator available at: http://www.[employer]/multiple_crcl_2011.htm Performed By: #### BRANDY Nunez DAU #### [facility] [address] [place] [phone] Retail Representative: Tre Ferrell MD Anion gap [Moles/Vol] 11 mmol/L Normal 9-17 [facility] Comment on above: Performed By: #### BRANDY Nunez DAU #### [facility] [address] [place] [phone] Retail Representative: Tre Ferrell MD Calcium [Mass/Vol] 8.4 mg/dL Low 8.6-10.4 [facility] Comment on above: Performed By: #### BRANDY Nunez DAU #### [facility] [address] [place] [phone] Retail Representative: Tre Ferrell MD Chloride [Moles/Vol] 108 mmol/L High 98-107 [facility] Comment on above: Performed By: #### BRANDY Nunez DAU #### [facility] [address] [place] [phone] Retail Representative: Tre Ferrell MD CO2 [Moles/Vol] 23 mmol/L Normal 20-31 [facility] Comment on above: Performed By: #### BRANDY Nunez DAU #### [facility] [address] [place] [address] [place] [address] Retail Representative: Tre Ferrell MD Creatinine [Mass/Vol] 0.68 mg/dL Low 0.70-1.20 [facility] Comment on above: Performed By: #### U A, BRANDY, MK #### [facility] [address] [place] [address] Retail Representative: Tre Ferrell MD GFR, Amer >60 Normal >60 [facility] Comment on above: Performed By: #### U A, BRANDY, MK #### [facility] [address] [place] [phone] Retail Representative: Tre Ferrell MD GFR,non Amer >60 Normal >60 [facility] Comment on above: Performed By: #### U ABRANDY MK #### [facility] [address] [place] [phone] Retail Representative: Tre Ferrell MD Glucose [Mass/Vol] 85 mg/dL Normal 70-99 [facility] Comment on above: Performed By: #### U ABRANDY MK #### [facility] [address] [place] [phone] Retail Representative: Tre Ferrell MD Potassium [Moles/Vol] 3.9 mmol/L Normal 3.7-5.3 [facility] Comment on above: Performed By: #### U A, BRANDY MK #### [facility] [address] [place] [phone] Retail Representative: Tre Ferrell MD Sodium [Moles/Vol] 142 mmol/L Normal 135-144 [facility] Comment on above: Performed By: #### U A, BRANDY, MK #### [facility] [address] [place] [phone] Retail Representative: Tre Ferrell MD Urea nitrogen [Mass/Vol] 15 mg/dL Normal 8-23 [facility] Comment on above: Performed By: #### BRANDY Nunez DAU #### [facility] [address] [place], [place] [phone] Retail Representative: Tre Ferrell MD BUN/CRE Ratio NOT REPORTED Normal 9-20 [facility] Comment on above: Performed By: #### BRANDY Nunez DAU ####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 10-13-2025 DIABETES SCREEN DIABETES SCREEN [facility] Start: 10-13-2025 Diabetes Screening Diabetes Screening [facility] Start: 10-12-2025 DIABETES SCREEN DIABETES SCREEN [facility] Start: 10-11-2025 DIABETES SCREEN DIABETES SCREEN [facility] Start: 09-22-2025 DIABETES SCREEN DIABETES SCREEN [facility] Start: 08-11-2025 DIABETES SCREEN DIABETES SCREEN [facility] Start: 08-09-2025 DIABETES SCREEN DIABETES SCREEN [facility] Start: 08-02-2025 DIABETES SCREEN DIABETES SCREEN [facility] Start: 07-22-2025 DIABETES SCREEN DIABETES SCREEN [facility] Start: 11-27-2023 Influenza vaccination Influenza Vaccine (Season Ended) [facility] Start: 07-22-2023 Bacteria identified in Urine by Culture [facility] Start: 04-22-2023 Bacteria identified in Blood by Culture [facility] Start: 04-22-2023 Superficial Wound Culture Superficial Wound Culture [facility] Start: 04-19-2023 [facility] Start: 04-18-2023 Administration of prophylactic treatment [facility] Start: 04-15-2023 Referral to podiatrist orthopedic [facility] Start: 04-15-2023 Hospital admission [facility] Start: 03-28-2023 Advance Directive Discussion Advance Directive Discussion [facility] Start: 03-28-2023 Behavioral Health Screening Behavioral Health Screening [facility] Start: 03-28-2023 Depression Assessment Depression Assessment [facility] Start: 03-22-2023 [facility] Start: 2023 Administration of prophylactic treatment [facility] Start: 2023 [facility] Start: 2023 Referral to infectious diseases physician [facility] Start: 2023 Hospital admission [facility] Start: 2023 [facility] Start: 03-14-2023 Bacteria identified in Urine by Culture [facility] Start: 02-06-2023 [facility] Start: 02-04-2023 Hospital admission [facility] Start: 02-04-2023 [facility] Start: 01-10-2023 End: 03-12-2023 Bacteria identified in Urine by Culture [facility] Work Phone: Comment on above: Expected: 01/10/2023, Expires: 3 Start: 11-26-2022 Covid-19 Vaccine (2022- season) Covid-19 Vaccine ( season) [facility] Start: 11-26-2022 Influenza vaccination [facility] Start: 03-28-2022 ADVANCE DIRECTIVE DISCUSSION ADVANCE DIRECTIVE DISCUSSION [facility] Start: 03-28-2022 DEPRESSION ASSESSMENT DEPRESSION ASSESSMENT [facility] Start: 09-22-2020 HbA1c (Bld) [Mass fraction] A1C test (Diabetic or Prediabetic) [place] Start: 2020 Pneumococcal Vaccine: 65+ (1 - PCV) Pneumococcal Vaccine: 65+ (1 - PCV) [facility] Start: 2020 Pneumococcal Vaccine: 65+ (1 of 1 - PCV) Pneumococcal Vaccine: 65+ (1 of 1 - PCV) [facility] Start: 2020 PNEUMOCOCCAL: 65+ (1 - PCV) PNEUMOCOCCAL: 65+ (1 - PCV) [facility] Start: 11-27-2019 Influenza vaccination Flu vaccine (#1) [place], [place] Start: 2015 RSV Vaccine (1 - 1-dose 60+ series) RSV Vaccine (1 - 1-dose 60+ series) [facility] Start: 2010 PROSTATE CANCER SCREENING DISCUSSION PROSTATE CANCER SCREENING DISCUSSION [facility] Start: 2010 Prostate specific antigen measurement Prostate Cancer Screening Discussion [facility] Start: 2005 Screening for malignant neoplasm of colon Colon cancer screen colonoscopy [place], [place] Start: 2005 Shingles Vaccine (1 of 2) Shingles Vaccine (1 of 2) [place] Start: 2005 SHINGRIX VACCINE (1 of 2) SHINGRIX VACCINE (1 of 2) [facility] Start: 2000 COLOGUARD (FIT-DNA) COLOGUARD (FIT-DNA) [facility] Start: 2000 Colonoscopy COLONOSCOPY [facility] Start: 2000 COLORECTAL CANCER SCREENING COLORECTAL CANCER SCREENING [facility] Start: [address] COLONOGRAPHY [facility] Start: 2000 FECAL OCCULT BLOOD FECAL OCCULT BLOOD [facility] Start: 2000 Screening for malignant neoplasm of colon [facility] Start: 2000 SIGMOIDOSCOPY SIGMOIDOSCOPY [facility] Start: 1995 Lipid panel Lipid screen [place], [place] Start: 1990 Lipid 1996 panel - Serum or Plasma Lipid Screening [facility] Start: 1990 Lipid panel Lipid Screening [facility] Start: 1990 LIPID SCREEN LIPID SCREEN [facility] Start: 1974 DTaP/Tdap/Td vaccine (1 - Tdap) DTaP/Tdap/Td vaccine (1 - Tdap) [place], [place] Start: 1974 Urine microalbumin profile [facility] Start: 1970 HIV screening HIV screen [place], [place] Start: 1955 COVID-19 VACCINE (#1) COVID-19 VACCINE (#1) [facility] Start: 1955 Hepatitis C screening Hepatitis C screen [place], [place] Acapella Acapella Respira tory Care Routine Daily until discontinued starting 09/27/2019 [place] Comment on above: Daily until discontinued starting 2019 Bacteria identified in Unspecified specimen by Aerobe culture [facility] Bacteria identified in Urine by Culture [facility] CATHETER INSERT-HERNANDEZ CATHETER I NSERT-HERNANDEZ Procedures Routine Neurogenic bladder Ordered: 01/09/2023 [facility] Work Phone: Comment on above: Ordered: 01/09/2023 Change cystostomy tu be simple IR SUPRAPUBIC TUBE EXCHANGE Radiology Routine Neurogenic bladder Ordered: 11/25/2022 [facility] Work Phone: Comment on above: Ordered: 11/25/2022 End: 09-23-[address] 3D RECONSTRUCTION Imaging Routine Once for 1 Occurrences starting 09/23/2019 until 09/23/2019 [facility] Comment on above: Once for 1 Occurrences starting 09/23/19 20 until 09/23/[address] 3D RECON STRUCTION Imaging STAT 09/23/2019 2:14 AM EDT [facility] End: 10-01-2023 Ct abdomen & pelvis w/o contrast material CT FLANK WO IVCON Radiology Routine Calculus of kidney 1 Occurrences starting 09/01/2022 until 10/01/2023 [facility] Work Phone: Comment on above: 1 Occurrences starting 09/01/2022 until 10/01/2023 HERNANDEZ - DISCONTINUE HERNANDEZ - DISC ONTINUE Procedures Routine Neurogenic bladder Ordered: 08/05/2023 [facility] Work Phone: Comment on above: Ordered: 08/05/2023 HERNANDEZ CHANGE HERNANDEZ CHANGE Pro cedures Routine Neurogenic bladder Quadriplegia (HCC) History of spinal cord injury Ordered: 03/02/2023 [facility] Work Phone: Comment on above: Ordered: 03/02/2023 HHN Treatment HHN Treatment Respiratory Care STAT 4X Daily until discontinued starting 09/25/2019 [facility] Comment on above: 4X Daily until discontinued starting Incentive spirometry RT Incentiv e spirometry RT Respiratory Care Routine Every 2hr while awake until discontinued [facility]: Every 2hr while awake until discontinued starting 09/27/2019 Initiate Oxygen Ther apy Protocol Initiate Oxygen Therapy Protocol Respiratory Care Routine Daily until discontinued starting 09/23/2019 [facility] [place] Comment on above: Daily until discontinued starting 2019 IR CENTRAL LINE REMOVAL IR CENTR AL LINE REMOVAL Radiology Routine Pyelonephritis Ordered: 10/05/2022 [facility] Work Phone: Comment on above: Ordered: 10/05/[address] IR NEP HROSTOMY TUBE PLACE Radiology Routine Nephrolithiasis Quadriplegia (HCC) Ordered: 09/09/2022 [facility] Work Phone: Comment on above: Ordered: 09/09/2022 Patient Education [facility] Work Phone: Patient referral [facility] Work Phone: End: 11-26-2023 Radiologic exam abdomen 3+ views XR ABDOMEN 3V KUB W/OBLIQUES Radiology Routine Nephrolithiasis Neurogenic bladder Encounter for care or replacement of suprapubic tube (HCC) 1 Occurrences starting 10/27/2022 until 11/26/2023 [facility] Work Phone: Comment on above: 1 Occurrences starting 10/27/2022 until 11/26/2023 End: 01-15-2024 Radiologic exam abdomen 3+ views XR ABDOMEN 3V KUB W/OBLIQUES Radiology Routine Nephrolithiasis 1 Occurrences starting 12/16/2022 until 01/15/2024 [facility] Work Phone: Comment on above: 1 Occurrences starting 12/16/2022 until 01/15/2024 URINALYSIS, REFLEX MICROSCOPIC URINALYSIS, REFLEX MICROSCOPIC Lab Routine Screening for genitourinary condition Ordered: 12/16/2022 [facility] Work Phone: Comment on above: Ordered: 12/16/2022 End: 11-26-2023 US KIDNEY/BLADDER US KIDNEY/BLADDER Radiology Routine Nephrolithiasis Neurogenic bladder Encounter for care or replacement of suprapubic tube (HCC) 1 Occurrences starting 10/27/2022 until 11/26/2023 [facility] Work Phone: Comment on above: 1 Occurrences starting 10/27/2022 until 11/26/2023 End: 01-16-2024 US KIDNEY/BLADDER US KIDNEY/BLADDER Radiology Routine Nephrolithiasis 1 Occurrences starting 12/16/2022 until 01/16/2024 [facility] Work Phone: Comment on above: 1 Occurrences starting 12/16/2022 until 01/16/2024 End: 11-12-2023 XR ABDOMEN 1V SUPINE XR ABDOMEN 1V SUPINE Radiology Routine Nephrolithiasis 1 Occurrences starting 10/13/2022 until 11/12/2023 [facility] Work Phone: Comment on above: 1 Occurrences starting 10/13/2022 until 11/12/2023 [facility] Payers Date Payer Category Payer Private Health Insurance [id number] 2022 Self-pay [id number] 2021 Medicaid MEDICAID [facility] MEDICAID [id number] 2021-Present [phone] [address] [place] [address] Medicaid [id number] 2020 Medicare [id number] [id number]. [id number] 2019 Unknown [id number] 2019 Unknown GENERIC AUTO INS URANCE GENERIC AUTO INSURANCE [id number] 2019-Present 2017 Unknown [id number] 2017 Unknown BCBS BCBS OUT OF STATE [id number] 2017-Present [address] [id number]. [id number] 1959 Medicaid [id number] 2.16.840.1.736194.19 1959 Medicare [id number] 2.16.840.1.703287.19 1955 Unknown [id number] 2.16.840.1.657755.3.579.2. 175 1955 Unknown [id number] 2.16.840.1.561372.3.579.2. 727 1955 Unknown [id number] 2.16.840.1.823437.3.579.2. 593 1955 Unknown [id number] 2.16.840.1.342432.3.579.2. 593 1955 Unknown [id number] 2.16.840.1.706370.3.579.2. 593 1955 Unknown [id number] 2.16.840.1.127790.3.579.2. 593 1955 Unknown [id number] 2.16.840.1.354089.3.579.2. 593 1955 Unknown [id number] 2.16.840.1.238277.3.579.2. 593 1955 Unknown [id number] 2.16.840.1.689010.3.579.2. 593 1955 Unknown [id number] 2.16.840.1.255418.3.579.2. 593 1955 Unknown [id number] 2.16.840.1.912739.3.579.2. 593 1955 Unknown [id number] 2.16.840.1.018374.3.579.2. 593 1955 Unknown [id number] 2.16.840.1.982393.3.579.2. 593 1955 Unknown [id number] 2.16.840.1.132562.3.579.2. 593 Unknown [id number] 2.16.840.1.009969.3.579.2. 531 Unknown [id number] 2.16.840.1.386673.3.579.2. 531 Unknown [id number] 2.16.840.1.003206.3.579.2. 531 Unknown [id number] 2.16.840.1.292699.3.579.2. 531 Unknown [id number] 2.16.840.1.552337.3.579.2. 531 Unknown [id number] 2.16.840.1.241627.3.579.2. 531 Unknown [id number] 2.16.840.1.650005.3.579.2. 531 Unknown [id number] 2.16.840.1.395536.3.579.2. 531 Unknown [id number] 2.16.840.1.067628.3.579.2. 531 Unknown [id number] 2.16.840.1.818032.3.579.2. 531 Unknown [id number] 2.16.840.1.362873.3.579.2. 531 Social History Date Type Detail Facility Start: 09-25-2019 End: 10-13-2019 Tobacco smoking status ALIS Unknown if ever smoked [facility] Start: 09-25-2019 Alcohol intake Current drinke r of alcohol (finding) [place], [place] Start: 09-23-2019 Alcohol Comment unable to asses [place], [place] Start: 1955 Sex Assigned At Not on file [place], [place] Exposure to SARS-CoV -2 (event) Unable to assess [place], [place] Start: 07-23-2022 End: 09-01-2022 Sex Assigned At [facility] Start: 07-15-2021 End: 07-22-2023 Tobacco smoking status NHIS Smoker (finding) [facility] Start: 1955 Sex Assigned At Male F [facility] Start: 07-23-2022 End: 08-06-2022 Alcohol intake Ex-drinker (finding) [facility] Start: 07-23-2022 History SDOH Financial 5 [facility] Start: 07-23-2022 History SDOH Food Worry 1 [facility] Start: 07-23-2022 History SDOH Transpo rt Med 2 [facility] Start: 07-23-2022 End: 09-01-2022 History of Social function [facility] How hard is it for y ou to pay for the very basics like food, housing, medical care, and heating Not hard at all [facility] (I/We) worried wheth er (my/our) food would run out before (I/we) got money to buy more. Never true [facility] In the past 12 month s, was there a time when you were not able to pay the mortgage or rent on time? No [facility] Start: 03-14-2023 End: 2023 Tobacco smoking status ALIS Never smoked tobacco (finding) [facility] Start: 04-15-2023 Tobacco smoking stat us ALIS Ex-smoker (finding) [facility] Medical Equipment Procedure Code Equipment Code Equipment Original Text Equipment Identifier Dates Screw Multi Axia l 3.5x14mm [id number] Start: 09-24-2019 Screw Lk Infinity Ti Set [id number] Start: 09-24-2019 Impl Librado Pre-Cut 3.5x30mm [id number] Start: 09-24-2019 Impl Spine Librado I nfinity 3.5x40mm [id number] Start: 09-24-2019 Stent Inlay Opti ma 7fr Taper [place] Green Polymer Phreecoat 26cm Ureteral - [id number] Start: 08-09-2022 Tray Powerline S urecuff 5fr Polyurethane Catheter 1 Lumen Microintroducer - [id number] Start: 09-24-2022 Stent Inlay Opti ma 7fr Taper [place] Green Phreecoat Polymer 28cm Ureteral - [id number] Start: 10-11-2022 Goals Date Patient Goal Desired Activity /State Functional Status Date Assessment Result Facility 03-22-2023 Functional status Patient at Baseline [facility] Work Phone: 02-06-2023 Functional status Patient at Baseline [facility] Work Phone: Mental Status Date Assessment Result Facility 03-22-2023 Cognitive function Cognitive Sta tus Patient at Baseline [facility] Work Phone: 02-06-2023 Cognitive function Cognitive Sta tus Patient at Baseline [facility] Work Phone: Clinical Notes 01-01-2022 to [...] Doran RN August 05, 2023 4:04 PM [facility] 08-05-2023 Miscellaneous Notes Formattin g of this [...] Nichole Das Urology documented in this encounter [facility] 08-05-2023 Telephone encount er Note Called and [...] removed locally. Please advise. ThanksNichole Adm Urology [facility] 06-14-2023 Miscellaneous Notes Formattin g of this note is different from the original. Requested Prescriptions Pending Prescriptions Disp Refills trospium (SANCTURA) 20 mg tablet 180 tablet 3 Sig: Take 1 tablet by mouth two times a day before meals. documented in this encounter [facility] 05-11-2023 Miscellaneous Notes Formattin g of this note is different from the original. Requested Prescriptions Pending Prescriptions Disp Refills tamsulosin (FLOMAX) 0.4 mg 30 capsule 0 Sig: Take 1 capsule by mouth once daily. Stop two days after your stent is removed. documented in this encounter [facility] 05-04-2023 Evaluation note Encounter Date Diagnosis Assessment [...] home PT/OT, home health aide. Need of director social service eval as well given he typically lives alone, difficulty with transportation at times. Apr, Suprapubic catheter (ICD-10 - Z93.59) Recommend longterm for catheter care. Apr, Neurogenic bladder (ICD-10 - N31.9) Apr, Constipation (ICD-10 - K59.00) Per patient has been taking miralax daily, he has use of Senna PRN and suppository PRN. Discussed importance of daily miralax for bowel regimen and adequate fluid intake Apr, Pressure ulcer of buttock (ICD-10 - L89.309) Seeing [facility] wound care weekly, requires longterm for wound care at home. Apr, Protein calorie malnutrition (ICD-10 - E46) Recommend Ensure BID for sufficient protein intake for wound healing [facility] Other 01-22-2024 Hospital Discharge instructionsAmbulatory Orders* Initiate [...] Provide education on above Speech Therapy recommendations [facility] Work Phone: 1(232) 536-781801-17-2024 Evaluation note* Encounter Date Diagnosis Assessment Notes Treatment Notes Treatment Clinical Notes Mar, Thoracic back pain (ICD-10 - M54.6) [facility] 12-26-2023 Hospital Discharge instructionsAmbulatory Orders* Initiate [...] upright [facility] Work Phone: 1(840) 873-737812-25-2023 Progress note Author Zeinab Poole [facility] March 21, 2023 2:10pm Note Date/Time March 21, 2023 2:10pm [facility] [address] [place] [address] Hospitalist Progress Note Signed Patient: Fede Guerra SR MR#: [id number] : 1955 Acct:[id number] Age/Sex: 68 / M Adm Date: 3 Loc: Room: [address] [place] [address] Type: ADM IN Attending Dr: Fede Darby [...] mg 03/16/23 14:26 Bisacodyl 10 Mg Supp.Rect MN 03/15/24 14:25 DAILY PRN Constipation Calcium Carbonate [...] a.m. Documented By: Zeinab Poole MD 03/21/23 1403 Signed By: <Electronically signed by Zeinab Poole MD> 03/21/23 1410 [facility] Work Phone: 1(526) 900-460212-24-2023 Progress note Author Fede Darby [facility] March 20, 2023 8:45pm Note Date/Time March 20, 2023 8:45pm [facility] [address] [place] [address] Hospitalist Progress Note Signed Patient: Fede Guerra SR MR#: [id number] : 1955 Acct:[id number] Age/Sex: 68 / M Adm Date: 3 Loc: Room: [address] [place] [address] Type: ADM IN Attending Dr: Fede Darby DO Copies to: ~ Date of Service: 03/20/2023 Subjective Subjective Narrative: Se[facility] and examined today[facility] No new complaints Physical exam: General [...] mg 03/16/23 14:26 Bisacodyl 10 Mg Supp.Rect MN 03/15/24 14:25 DAILY PRN Constipation Calcium Carbonate [...] <Electronically signed by Fede Darby DO> 03/20/232044 [facility] Work Phone: 1(558) 238-581912-24-2023 Progress note Author Fede Shah [facility] March 20, 2023 10:46am Note Date/Time March 20, 2023 10:46am [facility] [address] [place], [place] [id number] Infect. Disease Progress Note Signed Patient: Lately,Fede Drew SR MR#: [id number] : 1955 Acct:[id number] Age/Sex: 68 / M Adm Date: 3 Loc: Room: [address] [place] [address] Type: ADM IN Attending Dr: Fede Draby DO Copies to: ~ Date of Service: [...] Mg Tablet) 5 mg PO DAILY [facility] Stop: 03/18/24 13:04 Last Admin: 03/20/23 08:57 Dose: 5 mg Baclofen (Baclofen 10 Mg Tablet) 10 mg PO TID EVELYN Stop: 03/17/24 21:59 Last Admin: 03/20/23 08:58 Dose: 10 mg Bisacodyl (Bisacodyl 10 Mg Supp.Rect) 10 mg MN DAILY PRN PRN Reason: Constipation Stop: 03/15/24 14:25 Calcium Carbonate (Calcium Carbonate 500 Mg Tab.Chew) 1,000 mg PO Q4H PRN PRN Reason: Dyspepsia Stop: 03/16/24 12:56 Last Admin: 03/17/23 13:58 Dose: 1,000 mg Gabapentin (Gabapentin 300 Mg Capsule) 300 mg PO TID [facility] Stop: 03/18/24 13:59 Last Admin: 03/20/23 08:56 [...] mls @ 200 mls/hr IV Q12H [facility] Last Admin: 03/20/23 09:04 Dose: 200 mls/hr Loratadine (Loratadine 10 Mg Tablet) 10 mg PO DAILY [facility] Stop: 03/16/24 08:59 Last Admin: 03/20/23 08:57 Dose: 10 mg Multi-Ingredient Mouthwash/Gargle (Magic Mouthwash With Lidocaine) 5 ml PO [id number] Stop: 03/15/24 09:59 Last Admin: 03/20/23 10:17 Dose: Not Given Ondansetron HCl (Ondansetron Odt 4 Mg Tab.Rapdis) 4 mg PO Q8HR PRN PRN Reason: Nausea And Vomiting Stop: 03/15/24 00:20 Last Admin: 03/17/23 14:03 Dose: 4 mg Pantoprazole Sodium (Pantoprazole 40 Mg Tablet.Dr) 40 mg PO DAILY [facility] Stop: 03/15/24 17:18 Last Admin: 03/20/23 08:57 Dose: 40 mg Polyethylene Glycol (Polyethylene Glycol 3350 17 Gm Powd.Pack) 17 gm PO DAILY EVELYN Stop: 03/17/24 08:59 Last Admin: 03/20/23 08:56 Dose: 17 gm Sennosides (Sennosides 8.6 Mg Tablet) 2 tab PO BID [facility] Stop: 03/16/24 20:59 Last Admin: 03/20/23 08:57 Dose: 2 tab Sodium Chloride (Sodium Chloride 0.9 % 10 Ml Syringe) 0 ml IV-PUSH QSHIFT [facility] Stop: 03/15/24 05:59 Last Admin: 03/20/23 06:08 [...] <Electronically signed by MD Fede Shah> 03/20/231045 [facility] Work Phone: 1(624) 154-538012-23-2023 Progress note Author Zeinab Poole [facility] March 19, 2023 1:12pm Note Date/Time March 19, 2023 1:08pm [facility] [address] [place] [address] Hospitalist Progress Note Signed Patient: Fede Guerra SR MR#: [id number] : 1955 Acct:[id number] Age/Sex: 68 / M Adm Date: 3 Loc: Room: [address] [place] [address] Type: ADM IN Attending Dr: Zeinab Poole [...] mg 03/16/23 14:26 Bisacodyl 10 Mg Supp.Rect MN 03/15/24 14:25 DAILY PRN Constipation Calcium Carbonate [...] signed by Zeinab Poole MD> 03/19/23 1312 [facility] Work Phone: 1(698) 386-467212-23-2023 Progress note Author Fede Shah [facility] March 19, 2023 10:38am Note Date/Time March 19, 2023 10:12am [facility] [address] [place] [address] Infect. Disease Progress Note Signed Patient: Fede Guerra SR MR#: [id number] : 1955 Acct:[id number] Age/Sex: 68 / M Adm Date: 3 Loc: Room: [address] [place] [address] Type: ADM IN Attending Dr: Zeinab Poole [...] Mg Tablet) 10 mg PO TID [facility] [facility] Stop: 03/17/24 21:59 Last Admin: 03/19/23 08:19 Dose: 10 mg Bisacodyl (Bisacodyl 10 Mg Supp.Rect) 10 mg MN DAILY PRN PRN Reason: Constipation Stop: 03/15/24 14:25 Calcium Carbonate (Calcium Carbonate 500 Mg Tab.Chew) 1,000 mg PO Q4H PRN PRN Reason: Dyspepsia Stop: 03/16/24 12:56 Last Admin: 03/17/23 13:58 Dose: 1,000 mg Gabapentin (Gabapentin 100 Mg Capsule) 200 mg PO TID [facility] Stop: 03/17/24 21:59 Last Admin: 03/19/23 08:15 [...] mls @ 200 mls/hr IV Q12H [facility] Last Admin: 03/19/23 08:20 Dose: 200 mls/hr Loratadine (Loratadine 10 Mg Tablet) 10 mg PO DAILY [facility] Stop: 03/16/24 08:59 Last Admin: 03/19/23 08:19 Dose: 10 mg Multi-Ingredient Mouthwash/Gargle (Magic Mouthwash With Lidocaine) 5 ml PO [id number] Stop: 03/15/24 09:59 Last Admin: 03/19/23 09:17 [...] signed by MD Fede Shah> 03/19/23 1038 [facility] Work Phone: 1([phone] 949-286112-22-2023 Progress note Author Zeinab Poole [facility] March 18, 2023 2:14pm Note Date/Time March 18, 2023 2:14pm [facility] [address] [place] [address] Hospitalist Progress Note Signed Patient: Lately,Fede Drew SR MR#: [id number] : 1955 Acct:[id number] Age/Sex: 68 / M Adm Date: 3 Loc: Room: [address] [place] [address] Type: ADM IN Attending Dr: Zeinab Poole [...] mg 03/16/23 14:26 Bisacodyl 10 Mg Supp.Rect MN 03/15/24 14:25 DAILY PRN Constipation Calcium Carbonate [...] PO 03/15/24 09:59 Not Given Q4HR [facility] Ondansetron HCl 4 mg 03/16/23 00:21 03/17/23 [...] Cap.Er.24h PO 03/15/24 16:29 2 mg BID.AC.BKFAST.SUPPER EVLEYN Administration Tramadol HCl 25 mg 03/17/23 12:57 [...] <Electronically signed by Zeinab Poole MD> 03/18/23 1417 [facility] Work Phone: 1(421) 213-929012-22-2023 Progress note Author Fede Shah [facility] March 18, 2023 12:22pm Note Date/Time March 18, 2023 12:22pm [facility] [address] [place] [address] Infect. Disease Progress Note Signed Patient: Lately,Fede Drew SR MR#: [id number] : 1955 Acct:[id number] Age/Sex: 68 / M Adm Date: 3 Loc: Room: [address] [place] [address] Type: ADM IN Attending Dr: Zeinab Poole [...] Mg Tablet) 5 mg PO TID [facility] Stop: 03/15/24 21:59 Last Admin: 03/18/23 10:10 Dose: 5 mg Bisacodyl (Bisacodyl 10 Mg Supp.Rect) 10 mg MN DAILY PRN PRN Reason: Constipation Stop: 03/15/24 14:25 Calcium Carbonate (Calcium Carbonate 500 Mg Tab.Chew) 1,000 mg PO Q4H PRN PRN Reason: Dyspepsia Stop: 03/16/24 12:56 Last Admin: 03/17/23 13:58 Dose: 1,000 mg Gabapentin (Gabapentin 100 Mg Capsule) 100 mg PO TID [facility] Stop: 03/15/24 21:59 Last Admin: 03/18/23 10:10 Dose: 100 mg Heparin Sodium (Porcine) (Heparin 5,000 Unit/Ml Vial) 5,000 unit SUBCUT Q12HR [facility] Stop: 03/15/24 08:59 Last Admin: 03/18/23 10:11 Dose: 5,000 unit Hydralazine HCl (Hydralazine 20 Mg/Ml Vial) 10 mg IV-PUSH Q4H PRN PRN Reason: if SBP > 185 Stop: 03/16/24 12:57 Tigecycline (Tygacil) 50 mg in 100 mls @ 200 mls/hr IV Q12H [facility] Last Admin: 03/18/23 10:31 Dose: 200 mls/hr Loratadine (Loratadine 10 Mg Tablet) 10 mg PO DAILY [facility] Stop: 03/16/24 08:59 Last Admin: 03/18/23 10:10 Dose: 10 mg Multi-Ingredient Mouthwash/Gargle (Magic Mouthwash With Lidocaine) 5 ml PO [id number] Stop: 03/15/24 09:59 Last Admin: 03/18/23 10:10 [...] signed by MD Fede Shah> 03/18/23 1222 [facility] Work Phone: 1([phone]) 233-473012-21-2023 Progress note Author Zeinab Poole [facility] March 17, 2023 1:05pm Note Date/Time March 17, 2023 1:05pm [facility] [address] [place] [address] Hospitalist Progress Note Signed Patient: HarithalyFede SR MR#: [id number] : 1955 Acct:[id number] Age/Sex: 68 / M Adm Date: 3 Loc: Room: [address] [place] [address] Type: ADM IN Attending Dr: Zeinab Poole [...] mg 03/16/23 14:26 Bisacodyl 10 Mg Supp.Rect MN 03/15/24 14:25 DAILY PRN Constipation Calcium Carbonate [...] signed by Zeinab Poole MD> 03/17/23 1305 [facility] Work Phone: 1([phone] 146-720512-21-2023 Progress note Author Fede Shah [facility] March 17, 2023 8:34am Note Date/Time March 17, 2023 8:34am [facility] [address] [place], [place] [address] Infect. Disease Progress Note Signed Patient: Harithaly,Fede Drew SR MR#: [id number] : 1955 Acct:[id number] Age/Sex: 68 / M Adm Date: 3 Loc: Room: [address] [place] [address] Type: ADM IN Attending Dr: Zeinab Poole [...] Mg Tablet) 5 mg PO TID [facility] Stop: 03/15/24 21:59 Last Admin: 03/16/23 21:38 Dose: 5 mg Bisacodyl (Bisacodyl 10 Mg Supp.Rect) 10 mg MN DAILY PRN PRN Reason: Constipation Stop: 03/15/24 14:25 Gabapentin (Gabapentin 100 Mg Capsule) 100 mg PO TID [facility] Stop: 03/15/24 21:59 Last Admin: 03/16/23 21:37 Dose: 100 mg Heparin Sodium (Porcine) (Heparin 5,000 Unit/Ml Vial) 5,000 unit SUBCUT Q12HR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 [address] [place] [address] PCP - General Family Medicine 07/14/22 Plush Weaver Relationship Specialty Start Date End Date Ana Foley DO [address] [place] [address] PCP - General Family Medicine 07/14/22 Plush Weaver Relationship Specialty Start Date End Date Ana Foley DO [address] [place] [address] PCP - General Family Medicine 07/14/22 Plush Weaver Relationship Specialty Start Date End Date Ana Foley DO [address] [place] [address] PCP - General Family Medicine 07/14/22 Plush Weaver Relationship Specialty Start Date End Date Ana Foley DO [address] [place] [address] PCP - General Family Medicine 07/14/22 Plush Weaver Relationship Specialty Start Date End Date Ana Foley DO [address] [place] [address] PCP - General Family Medicine 07/14/22 Plush Weaver Relationship Specialty Start Date End Date Ana Foley DO [address] [place] [address] PCP - General Family Medicine 07/14/22 Plush Weaver Relationship Specialty Start Date End Date Ana Foley DO [address] [place] [address] PCP - General Family Medicine 07/14/22 Plush Weaver Relationship Specialty Start Date End Date Ana Foley DO [address] [place] [address] PCP - General Family Medicine 07/14/22 Plush Weaver Relationship Specialty Start Date End Date Ana Foley DO [address] [place] [address] PCP - General Family Medicine 07/14/22 Plush Weaver Relationship Specialty Start Date End Date Ana Foley DO [address] [facility] [facility] [place] [address] PCP - General Family Medicine 07/14/22 Team [...] Foley , DO Primary Care Provider Active Plush Weaver Relationship Specialty Start Date End Date Ana Foley, DO [address] [facility] [place] [address] PCP - General Family Medicine 07/14/22 Team [...] Active Ray Betancourt MD Attending Provider Active Plush Weaver Relationship Specialty Start Date End Date Ana Foley, DO [address] [place] [address] PCP - General Family Medicine 07/14/22 Plush Weaver Relationship Specialty Start Date End Date Ana Foley, DO [address] [place] [address] PCP - General Family Medicine 07/14/22 Team [...] March 14, 2023 End: March 14, 2023 iRver Alberto PA-C Emergency Provider Active Start: March [...] April 22, 2023 End: April 22, 2023 Plush Weaver Relationship Specialty Start Date End Date Ana Foley DO [address] [facility] [place] [address] [place] [address] PCP - General Family Medicine 07/14/22 Team Status: Active Member Role Status Dates Janeth Lehman LPN Care Manager Active Ana Foley DO Primary Care Provider Active Team Status: Active Member Role Status Dates Ana Foley DO Primary Care Provide r, Attending [...] July 22, 2023 End: July 23, 2023 Plush Weaver Relationship Specialty Start Date End Date Ana Foley DO [address] [facility] [place] [address] PCP - General Family Medicine 07/14/22 Plush Weaver Relationship Specialty Start Date End Date Ana Foley DO [address] [facility] [address] PCP - General Family Medicine 07/14/22 Goals [...] or prosecute any alcohol or drug abuse patient.[facility]In the event this information is protected by the Federal Confidentiality of Alcohol and Drug Abuse Patient Records regulations: The Federal rules restrict any use of the information to criminally investigate or prosecute any alcohol or drug abuse patient.[facility] SpringfieldIn the event this information is protected by the Federal Confidentiality of Alcohol and Drug Abuse Patient Records regulations: The Federal rules restrict any use of the information to criminally investigate or prosecute any alcohol or drug abuse patient.[facility] SpringfieldIn the event this information is protected by the Federal Confidentiality of Alcohol and Drug Abuse Patient Records regulations: The Federal rules restrict any use of the information to criminally investigate or prosecute any alcohol or drug abuse patient.[facility] SpringfieldIn the event this information is protected by the Federal Confidentiality of Alcohol and Drug Abuse Patient Records regulations: The Federal rules restrict any use of the information to criminally investigate or prosecute any alcohol or drug abuse patient.[facility] SpringfieldIn the event this information is protected by the Federal Confidentiality of Alcohol and Drug Abuse Patient Records regulations: The Federal rules restrict any use of the information to criminally investigate or prosecute any alcohol or drug abuse patient.[facility] SpringfieldIn the event this information is protected by the Federal Confidentiality of Alcohol and Drug Abuse Patient Records regulations: The Federal rules restrict any use of the information to criminally investigate or prosecute any alcohol or drug abuse patient.[facility] SpringfieldIn the event this information is protected by the Federal Confidentiality of Alcohol and Drug Abuse Patient Records regulations: The Federal rules restrict any use of the information to criminally investigate or prosecute any alcohol or drug abuse patient.[facility] SpringfieldIn the event this information is protected by the Federal Confidentiality of Alcohol and Drug Abuse Patient Records regulations: The Federal rules restrict any use of the information to criminally investigate or prosecute any alcohol or drug abuse patient.[facility] SpringfieldIn the event this information is protected by the Federal Confidentiality of Alcohol and Drug Abuse Patient Records regulations: The Federal rules restrict any use of the information to criminally investigate or prosecute any alcohol or drug abuse patient.[facility]In the event this information is protected by the Federal Confidentiality of Alcohol and Drug Abuse Patient Records regulations: The Federal rules restrict any use of the information to criminally investigate or prosecute any alcohol or drug abuse patient.[facility] SpringfieldIn the event this information is protected by the Federal Confidentiality of Alcohol and Drug Abuse Patient Records regulations: The Federal rules restrict any use of the information to criminally investigate or prosecute any alcohol or drug abuse patient.[facility]In the event this information is protected by the Federal Confidentiality of Alcohol and Drug Abuse Patient Records regulations: The Federal rules restrict any use of the information to criminally investigate or prosecute any alcohol or drug abuse patient.[facility] SpringfieldIn the event this information is protected by the Federal Confidentiality of Alcohol and Drug Abuse Patient Records regulations: The Federal rules restrict any use of the information to criminally investigate or prosecute any alcohol or drug abuse patient.[facility] SpringfieldIn the event this information is protected by the Federal Confidentiality of Alcohol and Drug Abuse Patient Records regulations: The Federal rules restrict any use of the information to criminally investigate or prosecute any alcohol or drug abuse patient.[facility] SpringfieldIn the event this information is protected by the Federal Confidentiality of Alcohol and Drug Abuse Patient Records regulations: The Federal rules restrict any use of the information to criminally investigate or prosecute any alcohol or drug abuse patient.[facility] SpringfieldIn the event this information is protected by the Federal Confidentiality of Alcohol and Drug Abuse Patient Records regulations: The Federal rules restrict any use of the information to criminally investigate or prosecute any alcohol or drug abuse patient.[facility] SpringfieldIn the event this information is protected by the Federal Confidentiality of Alcohol and Drug Abuse Patient Records regulations: The Federal rules restrict any use of the information to criminally investigate or prosecute any alcohol or drug abuse patient.[facility] SpringfieldIn the event this information is protected by the Federal Confidentiality of Alcohol and Drug Abuse Patient Records regulations: The Federal rules restrict any use of the information to criminally investigate or prosecute any alcohol or drug abuse patient.[facility] SpringfieldIn the event this information is protected by the Federal Confidentiality of Alcohol and Drug Abuse Patient Records regulations: The Federal rules restrict any use of the information to criminally investigate or prosecute any alcohol or drug abuse patient.[facility] SpringfieldIn the event this information is protected by the Federal Confidentiality of Alcohol and Drug Abuse Patient Records regulations: The Federal rules restrict any use of the information to criminally investigate or prosecute any alcohol or drug abuse patient.[facility] SpringfieldIn the event this information is protected by the Federal Confidentiality of Alcohol and Drug Abuse Patient Records regulations: The Federal rules restrict any use of the information to criminally investigate or prosecute any alcohol or drug abuse patient.[facility] SpringfieldIn the event this information is protected by the Federal Confidentiality of Alcohol and Drug Abuse Patient Records regulations: The Federal rules restrict any use of the information to criminally investigate or prosecute any alcohol or drug abuse patient.[facility] SpringfieldIn the event this information is protected by the Federal Confidentiality of Alcohol and Drug Abuse Patient Records regulations: The Federal rules restrict any use of the information to criminally investigate or prosecute any alcohol or drug abuse patient.[facility] SpringfieldIn the event this information is protected by the Federal Confidentiality of Alcohol and Drug Abuse Patient Records regulations: The Federal rules restrict any use of the information to criminally investigate or prosecute any alcohol or drug abuse patient.[facility] SpringfieldIn the event this information is protected by the Federal Confidentiality of Alcohol and Drug Abuse Patient Records regulations: The Federal rules restrict any use of the information to criminally investigate or prosecute any alcohol or drug abuse patient.[facility] SpringfieldIn the event this information is protected by the Federal Confidentiality of Alcohol and Drug Abuse Patient Records regulations: The Federal rules restrict any use of the information to criminally investigate or prosecute any alcohol or drug abuse patient.[facility] SpringfieldIn the event this information is protected by the Federal Confidentiality of Alcohol and Drug Abuse Patient Records regulations: The Federal rules restrict any use of the information to criminally investigate or prosecute any alcohol or drug abuse patient.[facility] SpringfieldIn the event this information is protected by the Federal Confidentiality of Alcohol and Drug Abuse Patient Records regulations: The Federal rules restrict any use of the information to criminally investigate or prosecute any alcohol or drug abuse patient.[facility] SpringfieldIn the event this information is protected by the Federal Confidentiality of Alcohol and Drug Abuse Patient Records regulations: The Federal rules restrict any use of the information to criminally investigate or prosecute any alcohol or drug abuse patient.[facility] SpringfieldIn the event this information is protected by the Federal Confidentiality of Alcohol and Drug Abuse Patient Records regulations: The Federal rules restrict any use of the information to criminally investigate or prosecute any alcohol or drug abuse patient.[facility]In the event this information is protected by the Federal Confidentiality of Alcohol and Drug Abuse Patient Records regulations: The Federal rules restrict any use of the information to criminally investigate or prosecute any alcohol or drug abuse patient.[facility] SpringfieldIn the event this information is protected by the Federal Confidentiality of Alcohol and Drug Abuse Patient Records regulations: The Federal rules restrict any use of the information to criminally investigate or prosecute any alcohol or drug abuse patient.[facility] SpringfieldIn the event this information is protected by the Federal Confidentiality of Alcohol and Drug Abuse Patient Records regulations: The Federal rules restrict any use of the information to criminally investigate or prosecute any alcohol or drug abuse patient.[facility] SpringfieldIn the event this information is protected by the Federal Confidentiality of Alcohol and Drug Abuse Patient Records regulations: The Federal rules restrict any use of the information to criminally investigate or prosecute any alcohol or drug abuse patient.[facility] SpringfieldIn the event this information is protected by the Federal Confidentiality of Alcohol and Drug Abuse Patient Records regulations: The Federal rules restrict any use of the information to criminally investigate or prosecute any alcohol or drug abuse patient.[facility] SpringfieldIn the event this information is protected by the Federal Confidentiality of Alcohol and Drug Abuse Patient Records regulations: The Federal rules restrict any use of the information to criminally investigate or prosecute any alcohol or drug abuse patient.[facility] FOR RECORDS PERTAINING TO PATIENTS WHO ARE [...] BE BASED ON THE PRIMARY CLINICAL RECORDS. [facility] [employer] [facility]. provides no warranty or guarantee of the accuracy or completeness of information in this document.
[2023-09-06] MEDS: GABAPENTIN 300 MG CAPSULE 600 MG PO ×3 (06:08→22:04)
--- NOTE | 2023-09-06 09:22 | SWNOTE1 ---
Pt will need IV antibiotics at discharge. Nurse Practitioner is working on this. Pt is current with ROSA, QUINN to find out who.
[2023-09-06] MEDS: ENOXAPARIN SODIUM 40 MG/0.4 ML SYRINGE SUBQ (09:36)
[2023-09-06] MEDS: CETIRIZINE HCL 10 MG TABLET PO (09:36)
[2023-09-06] MEDS: SOLIFENACIN SUCCINATE 10 MG TABLET PO (09:36)
--- NOTE | 2023-09-06 09:42 | SWNOTE1 ---
SW received message from case management and pt has [facility] .
--- NOTE | 2023-09-06 09:56 | SWNOTE1 ---
Pt will discharge on IV Ertapenem for 14 days. SW sent over face sheet, labs, med list, and ED note to [facility] and to [facility] for the medication.
--- NOTE | 2023-09-06 11:22 | CM.NOTE ---
Rounds made with Dr. Altamirano. Plan for discharge possible today pending IV antibiotic with Home Health.
--- NOTE | 2023-09-06 11:34 | SWNOTE1 ---
QUINN called [facility] in [place] and spoke to Jim, he stated they forwarded this referral on to [place] office. Jim provided QUINN with fax and phone number and transferred SW. QUINN called and spoke with Lolis. She stated they did not receive referral or it is in the inbox. QUINN sent referral to fax number provided.
--- NOTE | 2023-09-06 11:38 | SWNOTE1 ---
QUINN met with pt to discuss dc needs. Pt lives at home with family. Pt has all DME needed at home and has [facility] coming in and an aide as well. SW udpated him and let him know SW is working on his home IV antibiotics and will let hime know when everything is set. Pt voiced he will need an ambulance to go home.
--- NOTE | 2023-09-06 12:14 | P.HP_ITS ---
<Statement entered by Kiel Altamirano MD - 09/06/23 18:18> Patient seen and examined, agree with assessment and plan below. Sent to ER due to multi drug resistant UTI. Started invanz and admitted. Doing well and afebrile. IV access obtained and school social worker arranging for home IV infusions. Not able to arrange today and will need to keep overnight. Diagnosis: 1. Catheter associated UTI 2. UTI due to multi drug resistant organism 3. 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 The patient was apparently contacted by his PCP yesterday but did not arrive in the ED until after 2 AM in the morning. Workup in the ED repeated blood cultures and urine culture but those are still pending. Otherwise his labs were unremarkable without evidence of leukocytosis and stable normal kidney function. A repeat UA did show large leukocyte Estrace and bacteria but the culture is still pending. The patient was admitted in observation early this morning for IV antibiotic administration as the culture obtained on 08 30 was resistant to everything except amikacin and carbapenems. The patient was given his first dose of ertapenem in the ED prior to arrival on the medical floor. At the time of my exam the patient is resting comfortably on his bed sleeping. He awakens to voice and cooperates appropriately with exam. He complains of suprapubic/left lower quadrant pain that radiates through to his left flank. Otherwise he has no acute complaints. We have ordered a midline to be placed today and as the patient already has home health nursing and has experienced previously with giving IV antibiotics at home, he will be discharged home later today with home health services and a prescription for IV ertapenem for 14 total days of treatment. ADDENDUM 1620: The pt's HH agency is refusing to take him back. Please see social service technician documentation. ground services instructor is attempting to find another HH agency who will accept the pt and his insurance. The pt remains discharged pending HH acceptance, but this may not be possible until tomorrow pending referral acceptance. Opioid HPI Opioid Management Most Recent Opioid Data: Last Pain Scale 5 09/06/23 13:00 Last Pain Assessment 09/06/23 15:47 Last ORT Total Score 0 09/06/23 04:36 Last ORT Risk Category Low Risk 09/06/23 04:36 Review of Systems ROS Status of ROS 10 or more systems reviewed and unremark able except as noted in history and below [facility] Medical History (Updated 09/06/23 @ 14:35 by Elzbieta Alvarado NP) Quadriplegic spinal paralysis ?G82.50 - Quadriplegia, unspecified (ICD-10) Chronic indwelling Hernandez catheter ?Z97.8 - Presence of other specified devices (ICD-10) Social History Smoking status: Current every day smoker Highest level of school completed/degree received: high school graduate Meds Home Medications and Allergies Home Medications ?Medication ?Instructions ?Recorded ?Confirmed ?Type baclofen 20 mg tablet 20 mg PO BID pain 03/15/23 09/06/23 History loratadine 10 mg tablet 10 mg PO Q24H 03/15/23 09/06/23 History trospium 20 mg tablet 20 mg PO Q12H 03/15/23 09/06/23 History ammonium lactate 12 % topical cream 1 applic topical BID 09/06/23 09/06/23 History baclofen 10 mg tablet 10 mg PO Q8H PRN spasms 09/06/23 09/06/23 History ertapenem 1 gram solution for 1 g IV DAILY 13 days #13 ea 09/06/23 Rx injection gabapentin 600 mg tablet 600 mg PO Q8H 09/06/23 09/06/23 History nystatin 100,000 unit/gram topical 1 applic topical BID 09/06/23 09/06/23 History powder Allergies Allergy/AdvReac Type Severity Reaction Status Date / Time No Known Drug Allergies Allergy Verified 09/06/23 02:16 Exam Constitutional Vital Signs, click to edit/add: Last Vital Signs Temp 97.7 F 09/06/23 04:45 Pulse 78 09/06/23 04:45 Resp 12 09/06/23 04:45 BP 126/80 09/06/23 04:45 Pulse Ox 99 09/06/23 04:45 O2 Del Method Room Air 09/06/23 04:45 Common normals: no apparent distress, oriented x3, alert and well nourished General appearance: cooperative Orientation/consciousness: Yes awake HENMT Common normals: normocephalic, head/scalp atraumatic, hearing grossly normal bilaterally, external nose normal and moist oral mucous membranes Eye Common normals: PERRL, EOMs intact bilaterally, conjunctivae normal and no scleral icterus Alignment: alignment normal Eyelid: eyelids normal Neck & C-Spine Common normals: full ROM, supple and no JVD Chest Common normals: inspection of chest normal Chest: symmetrical chest wall rise Respiratory Common normals: normal respiratory effort, no retractions, no use of accessory muscles and clear to auscultation bilaterally Effort & inspection: able to speak in complete sentences Cardio Common normals: no JVD, regular rate, regular rhythm, S1 normal heart sound, S2 normal heart sound, no gallops, no clicks, no murmurs, no rub and peripheral pulses 2+ throughout GI Common normals: Normal to inspection, nondistended, normoactive bowel sounds present, soft to palpation, non-tender, no hepatosplenomegaly, no masses and no bruits Bladder/kidney exam: bladder normal to palpation Extremity Common normals: normal capillary refill General: normal exam except as noted; no clubbing and no cyanosis Other: Hx of quadriplegia. Chronic contracture of BUE, BLE. Some limited motion to all extremities noted. Neuro [place] Coma Scale: GCS not evaluated Common normals: CN's II-XII intact bilaterally and no sensory deficits noted Speech: speech normal Psych Common normals: mental status grossly normal, thought process normal, affect normal and activity/motor behavior normal Results Labs Labs: Short CBC 09/06/23 Range/Units 02:48 WBC 5.2 (4.0-11.0) 10^3/uL Hgb 13.1 L (14.0-18.0) g/dL Hct 40.9 L (42.0-54.0) % Plt Count 260 (150-450) 10^3/uL BMP 09/06/23 02:48 Sodium 136 Potassium 4.0 Chloride 104 Carbon Dioxide 26.8 BUN 15.0 Creatinine 0.90 Glucose 91 Calcium 9.2 Urine 09/06/23 Range/Units 02:19 Urine Color Yellow (YELLOW) Urine Clarity Clear (CLEAR) Urine pH 6.5 (5.0-9.0) Ur Specific Barton 1.020 (1.005-1.025) Urine Protein 30 A (NEG/TRACE) mg/dL Urine Glucose (UA) Negative (NEGATIVE) mg/dL Pulse Oximetry Attestation: I have reviewed the pertinent pulse oximetry results. Assessment and Plan Assessment and Plan (1) Catheter-associated urinary tract infection: Assessment and Plan: Acute * Adm observation * Pt w/ chronic indwelling catheter. UA obtained outpatient on 08/31/23 * Resulted w/ kessler-resistant K.Pneumoniae - sensitive to amikacin, ertapenem, imipenem only * Sent by PCP on 09/05/23 to the ED - the pt's spouse works nights and brought him in after work * Pt afebrile w/o S/S of sepsis - stable BP/mentation/no evidence of mottling or end-organ damage * Ertapenem initiated in the ED - 1gm daily. Plan 14 day total course d/t complicated UTI * Midline catheter ordered for prolonged IVPB administration * Plan to discharge home with HH services (pt already is current with HH) to assist/educate on IVPB administration (2) Infection due to drug-resistant organism: Assessment and Plan: Acute * See above (3) Quadriplegic spinal paralysis: Assessment and Plan: Chronic * Long-term quadriplegia from an accident * Cared for at home w/ assistance of aids and HH services * Continue home baclofen and gabapentin Urinary Catheter Management Urinary Catheter Management Urethral: Cath placed during this visit: no
--- NOTE | 2023-09-06 12:28 | SWNOTE1 ---
SW spoke to someone at [facility] and they did receive information and are running benefits. QUINN then received a call from Charity at [facility] and she stated there director is stating they are not able to accept this patient back due to safety reasons . Charity stated she is going to call the director and fight to keep him on services. QUINN voiced that pt is discharged and he needs these IV antibiotics and this is for the pt's health. QUINN waiting to hear back.
--- NOTE | 2023-09-06 12:30 | SWNOTE1 ---
SW updated doctor.
[2023-09-06] MEDS: BACLOFEN 10 MG TABLET 20 MG PO (13:28)
--- NOTE | 2023-09-06 14:02 | SWNOTE1 ---
[facility] is not able to accept back. QUINN sent referral to [facility]. SW then received call from Carmen at [facility] and she reached out to [address] and they said they were still active. SW let Charity at [employer] know and she was going to let administration at [facility] know. SW let Carmen at [facility] know that they are done and SW is reaching out to to make sure she is teachable. QUINN spoke to Melonie, pt's . She stated she does not actually live there. She works midnights and gets off works around 5:30 am and goes straight over to care for him. Pt also has 2 aides from [employer] coming in morning and night. Pt's step son also moved right beside pt and is helping as needed. Melonie voiced he was staying there all the time, but now has his own apt beside patient. Melonie voiced soemone is there nearly all the time. He is by himself sometimes. QUINN notified Melonie about the IV antibiotics and someone has to be taught how to do them. Melonie is able to be taught and so is step son. SW let her know that [address] is not able to come back in due to safety reasons and they are advising pt to go to SNF and have contacted [facility]. Melonie voiced she was surprised at this. SW let her know that SW sent to another company, [employer]. QUINN spoke to Melonie about pt going to a SNF. She stated he has been to several and he hits the call lights and nobody comes, he gets bed sores because nobody turns him. She stated they are terrible and they care for him better at home. Pt is alert and oriented and QUINN is not sure he would agree to SNF. Ange voiced she is coming in. QUINN then received call from Esperanza at [facility]. She received call from pt and is upset about [facility] not coming back in. QUINN explained the situation. Esperanza was calling [employer]. QUINN then received call back and Esperanza stated [employer] would like SW to calll back. QUINN called and spoke to the DON of [facility] (sales project administrator) and they are still not accepting pt back. SW to speak with pt.
--- NOTE | 2023-09-06 14:48 | SWNOTE1 ---
QUINN updated pt.
--- NOTE | 2023-09-06 15:40 | SWNOTE1 ---
[facility] is not able to accept. [facility], [facility], [facility], and [facility] does not accept insurance. [facility] and [facility] does accept. [facility] can't start IV until Tuesday. SW waiting bundler seasonal greenery back to see when [facility] can start IV. SW updated VALVE [employer]KER and pt and and nursing.
--- NOTE | 2023-09-06 16:24 | SWNOTE1 ---
QUINN sent referral to [facility] and [facility]. At this time QUINN hopeful one of the HH companies will accept. QUINN explained to pt and Melonie that if we can't get HH to accept, then the alternative is going to a facility for the IV'S. Pt voice dhe will not. SW did talk to them about [facility], but no transport to and from due to pt needing to be in at least a wheelchair and family not being able to transport. Pt has a message out to Sosa at [facility] to see if she has any other recommendations. Esperanza at [facility] did state that Sosa has told her if pt does not find care overnight his aide service will end as well.
[2023-09-06 17:07] LABS: Bacteroides fragilis NOT DETECTED (NOT DETECTE); Candida albicans NOT DETECTED (NOT DETECTE); Candida auris NOT DETECTED (NOT DETECTE); Candida glabrata NOT DETECTED (NOT DETECTE); Candida krusei NOT DETECTED (NOT DETECTE); Candida parapsilosis NOT DETECTED (NOT DETECTE); Candida tropicalis NOT DETECTED (NOT DETECTE); Cryptococcus neoformans/gattii NOT DETECTED (NOT DETECTE); Enterobacter cloacae complex NOT DETECTED (NOT DETECTE); Enterobacterales NOT DETECTED (NOT DETECTE); Enterococcus faecalis NOT DETECTED (NOT DETECTE); Enterococcus faecium NOT DETECTED (NOT DETECTE); Haemophilus influenzae NOT DETECTED (NOT DETECTE); Klebsiella aerogenes NOT DETECTED (NOT DETECTE); Klebsiella pneumoniae group NOT DETECTED (NOT DETECTE); Listeria monocytogenes NOT DETECTED (NOT DETECTE); Neisseria meningitidis NOT DETECTED (NOT DETECTE); Proteus spp. NOT DETECTED (NOT DETECTE); Pseudomonas aeruginosa NOT DETECTED (NOT DETECTE); Salmonella spp. NOT DETECTED (NOT DETECTE); Serratia marcescens NOT DETECTED (NOT DETECTE); Staphylococcus epidermidis NOT DETECTED (NOT DETECTE); Staphylococcus lugdunensis NOT DETECTED (NOT DETECTE); Stenotrophomonas maltophilia NOT DETECTED (NOT DETECTE); Streptococcus agalactiae NOT DETECTED (NOT DETECTE); Streptococcus pneumoniae NOT DETECTED (NOT DETECTE); Streptococcus pyogenes NOT DETECTED (NOT DETECTE); Streptococcus spp. NOT DETECTED (NOT DETECTE)
[2023-09-06 18:30] LABS: CTX-M NOT DETECTED (NOT DETECTE); IMP NOT DETECTED (NOT DETECTE); KPC NOT DETECTED (NOT DETECTE); NDM NOT DETECTED (NOT DETECTE); Source Blood; VIM NOT DETECTED (NOT DETECTE); mecA/C and MREJ (MRSA) NOT DETECTED (NOT DETECTE)
[2023-09-06 18:33] LABS: A. calcoaceticus-baumannii Cpx DETECTED (NOT DETECTE); Staphylococcus spp. DETECTED (NOT DETECTE)
[2023-09-06] MEDS: DICYCLOMINE HCL 10 MG CAPSULE 20 MG PO (22:04)
[2023-09-07] VITALS (7 sets, daily range): BP systolic 112–160; BP diastolic 72–84; PULSE 75–89; TEMP 36.4–36.7; O2SAT 97–99
[2023-09-07] MEDS: ERTAPENEM SODIUM 1 GM in 0.9 % SODIUM CHLORIDE 50 ML IV (03:39)
[2023-09-07] MEDS: GABAPENTIN 300 MG CAPSULE 600 MG PO ×3 (06:15→21:44)
[2023-09-07 08:27] LABS: Basophils Absolute Auto 0.1 10^3/uL (0.0-0.1); Basophils Percent Auto 1.3 % (0.2-2.0); Eosinophils Absolute Auto 0.3 10^3/uL (0.0-0.7); Eosinophils Percent Auto 8.4 % (0.9-7.0); Hematocrit 38.8 % (42.0-54.0); Hemoglobin 12.4 g/dL (14.0-18.0); Immature Granulocytes Abs Auto 0.01 10^3/uL (0.00-0.03); Immature Granulocytes Pct Auto 0.3 % (0.0-0.5); Lymphocytes Absolute Auto 1.5 10^3/uL (1.2-3.8); Lymphocytes Percent Auto 38.7 % (20.5-60.0); Mean Corpuscular Hemoglobin 27.4 pg (25.9-34.0); Mean Corpuscular Volume 85.7 fL (80.0-94.0); Mean Platelet Volume 9.7 fL (9.5-13.5); Monocytes Absolute Auto 0.5 10^3/uL (0.3-0.8); Monocytes Percent Auto 13.6 % (1.7-12.0); Neutrophils Absolute Auto 1.4 10^3/uL (1.4-6.5); Neutrophils Percent Auto 37.7 % (43.0-75.0); Platelet Count 241 10^3/uL (150-450); Red Blood Count 4.53 10^6/uL (4.70-6.10); Red Cell Distribution Width 13.6 % (11.0-15.0); White Blood Count 3.8 10^3/uL (4.0-11.0)
[2023-09-07 08:43] LABS: Alanine Aminotransferase 14 U/L (16-63); Albumin Globulin Ratio 0.9; Albumin Level 3.3 g/dL (3.4-5.0); Alkaline Phosphatase 68 U/L (46-116); Anion Gap 12.9; Aspartate Amino Transferase 13 U/L (15-37); BUN Creatinine Ratio 17.5; Bilirubin Total 0.8 mg/dL (0.2-1.0); Calcium 8.6 mg/dL (8.5-10.1); Carbon Dioxide 26.1 mmol/L (21.0-32.0); Chloride 105 mmol/L (98-107); Estimated GFR (African America >60 (>=60); Estimated GFR (Non-African Ame >60 (>=60); Globulin 3.8 g/dL; Glucose 80 mg/dL (74-106); Sodium 140 mmol/L (136-145); Total Protein 7.1 g/dL (6.4-8.2)
[2023-09-07] MEDS: NYSTATIN 15 GM POWDER 1 APPLIC TOPICAL ×2 (09:20→21:47)
[2023-09-07] MEDS: ENOXAPARIN SODIUM 40 MG/0.4 ML SYRINGE SUBQ (09:20)
[2023-09-07] MEDS: BACLOFEN 10 MG TABLET PO ×2 (09:20→17:03)
[2023-09-07] MEDS: CETIRIZINE HCL 10 MG TABLET PO (09:20)
[2023-09-07] MEDS: SOLIFENACIN SUCCINATE 10 MG TABLET PO (09:20)
[2023-09-07] MEDS: 0.9 % SODIUM CHLORIDE 250 ML 10 ML IV (09:21)
[2023-09-07] MEDS: AMMONIUM LACTATE 226 GM BOTTLE 1 APPLIC TOPICAL ×2 (09:21→21:46)
[2023-09-07] MEDS: AMPICILLIN SODIUM/SULBACTAM NA 3 GM in 0.9 % SODIUM CHLORIDE 100 ML IV ×3 (09:21→21:44)
--- NOTE | 2023-09-07 09:47 | SWNOTE1 ---
QUINN had message from [facility] and they are not able to accept as they have had in past. QUINN called Elzbieta at [facility] and they can likely start care Tuesday. QUINN did find out pt will need another IV antibiotic that runs continuously. SW let [facility] know this and they are alright with this as long as someone is teachable at home. QUINN did speak with Melonie, , yesterday and she is willing and has done before. QUINN spoke to Chrystal at [facility] and let her know about the continuous IV. She voiced they can do that. She stated he will need double lumen and that might be a good idea to get infectious disease involved. She stated he has seen someone in [place] in past. QUINN passed this information on to Nurse Practitioner, doctor, case management, and director of [facility]. Elzbieta our nurse practitioner is going to reach out to Chrystal at [facility].
--- NOTE | 2023-09-07 10:44 | P.PN_ITS ---
<Statement entered by Kiel Altamirano MD - 09/07/23 11:45> Patient seen and examined, agree with assessment and plan below. Feels well but c/o muscle spasms and tightness. Afebrile. Decreased appetite but no emesis or diarrhea. Blood culture PCR shows bacteremia and adjusted antibiotics. director of business services working on home care for IV antibiotics. Diagnosis: 1. Catheter associated UTI 2. Bacteremia 3. UTI due to multi drug resistant organism 4. Quadriplegic Progress Note: Subjective Subjective Interval history: 09/07/23 0915 The patient is resting quietly in bed. He notes increased spasm activity this morning and nursing has been made aware that he will need his home baclofen given. Otherwise the patient denies any acute complaints. He continues to note mild LLQ/flank tenderness consistent with his presentation and we clinically suspect possible pyelonephritis in addition to UTI (treatment is the same), but his renal function remains stable at baseline. director of business services is continuing to work with the patient's discharge plan. Due to the presence of bacteremia today on the ID, he has been changed to an inpatient status and we have adjusted his antibiotics as noted below. Exam Constitutional Vital Signs, click to edit/add: Last Vital Signs Temp 97.8 F 09/07/23 03:58 Pulse 76 09/07/23 07:18 Resp 18 09/07/23 07:18 BP 112/72 09/07/23 03:58 Pulse Ox 98 09/07/23 03:58 O2 Del Method Room Air 09/07/23 03:58 Common normals: no apparent distress, oriented x3 and alert General appearance: cooperative Orientation/consciousness: Yes awake HENAK Common normals: normocephalic, head/scalp atraumatic and hearing grossly normal bilaterally Eye Common normals: PERRL, EOMs intact bilaterally, conjunctivae normal and no scleral icterus Chest Common normals: inspection of chest normal Chest: symmetrical chest wall rise and tenderness other (L distal/lateral chest wall, increase w/ insp) Respiratory Common normals: normal respiratory effort, no use of accessory muscles and clear to auscultation bilaterally Effort & inspection: able to speak in complete sentences Auscultation: diminished lung sounds (BLL) Cardio Common normals: regular rate, regular rhythm, S1 normal heart sound, S2 normal heart sound, no murmurs and peripheral pulses 2+ throughout GI Common normals: Normal to inspection, nondistended, normoactive bowel sounds present, soft to palpation and no hepatosplenomegaly Palpation: tender Details: LLQ; no guarding, not rigid and no rebound tenderness present Bladder/kidney exam: bladder normal to palpation Extremity Common normals: normal to inspection and no calf tenderness General: edema (Bilat ankles. Insteps resolved); no clubbing and no cyanosis Neuro Common normals: CN's II-XII intact bilaterally and no sensory deficits noted Gait (neuro): other (Quadriplegia, minimal motion still present in all extremeties. Contractures) Psych Common normals: mental status grossly normal Progress Note: Objective Labs Labs: Short CBC 09/07/23 Range/Units 08:13 WBC 3.8 L (4.0-11.0) 10^3/uL Hgb 12.4 L (14.0-18.0) g/dL Hct 38.8 L (42.0-54.0) % Plt Count 241 (150-450) 10^3/uL BMP 09/07/23 08:13 Sodium 140 Potassium 4.0 Chloride 105 Carbon Dioxide 26.1 BUN 17.0 Creatinine 0.97 Glucose 80 Calcium 8.6 Liver Function 09/07/23 Range/Units 08:13 Total Bilirubin 0.8 (0.2-1.0) mg/dL AST 13 L (15-37) U/L ALT 14 L (16-63) U/L Alkaline Phosphatase 68 (46-116) U/L Albumin 3.3 L (3.4-5.0) g/dL Progress Note: A&P Assessment and Plan (1) Catheter-associated urinary tract infection: Assessment and Plan: Acute * Change to full inpatient admission * We expect greater than a total 2 midnight stay for medically necessary hospital care including IV ABX and close monitoring of culture results and vital signs q4h * Pt w/ chronic indwelling catheter. UA obtained outpatient on 08/31/23 * Resulted w/ kessler-resistant K.Pneumoniae - sensitive to amikacin, ertapenem, imipenem only * Pt remains afebrile w/o S/S of sepsis - stable BP/mentation/no evidence of mottling or end-organ damage * Continue Ertapenem 1gm daily. Plan 14 day total course d/t complicated UTI * Midline catheter placed 6/11/24 * Plan to discharge home with HH services (pt already is current with HH) to assist/educate on IVPB administration. * May need short SNF stay for rehab and ABX pending HH agencies ability to manage multiple antibiotics - see bacteremia * CBC, CMP daily (2) Bacteremia: Assessment and Plan: Acute * BCID resulted positive MSSA and Acinetobacter calcoaceticus-baumannii * Recent hx of UTI (05/12/23) w/ A. Baumannii that was MDR (Sensitive to Unasyn, Gentamycin, Tobramycin only) * High likelihood of similar MDR sensitivities in the current blood sample - final sensitivities still pending, likely available 09/08/23 * Add IVPB Unasyn, 3gm q6h * Plan continuous infusion via pump after discharge home unless SNF stay is planned * Pt remains afebrile, with stable VS and baseline mentation. 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
--- NOTE | 2023-09-07 11:40 | CM.NOTE ---
Rounds made with Dr. Altamirano. Dr. Altamirano explained the need for a second IV antibiotic to treat bacteremia as well as UTI. Discharge options reviewed with Mr. Lately and still would like to go home with Home Health and IV antibiotics at home.
[2023-09-07] MEDS: ENSURE HP 237 ML LIQUID PO ×2 (12:21→21:46)
--- NOTE | 2023-09-07 12:59 | SWNOTE1 ---
[facility] will likely be able to start care on Tuesday. Pt does need 2 antibiotics, one is continuous. QUINN sent over the updated medication information, labs, and progress note to [facility] and let them know to let SW know if they can accept for sure. Nurse Practitioner called [facility] and pt does only need single lumen, just needs a 30 min pause to transfuse ertapenem. QUINN called and left message for Chrystal at [facility], waiting to hear back. QUINN faxed updated script, labs, and progress note from today to [facility].
--- NOTE | 2023-09-07 13:03 | SWNOTE1 ---
QUINN did speak with pt and Esperanza from [facility] who was in pt's room. Pt was aware of everything and needing another medication. SW advised that he will have to stay tonight as the company that QUINN potentially has set can't come until Tuesday. Pt did ask SW about the overnight care and if I spoke with Sosa. QUINN advised pt and Esperanza that [place] did not call back, but SW to try again. Pt did voice he really wants to go home and SW advised pt that SW is trying. SW did let him know that [facility] said no as well because they had him in past. SW let pt and Esperanza know that it comes down to [facility]. Esperanza asked about a company in [place], but it is private caregivers. QUINN called and left message for Sosa at [facility]. SW received 2 calls and messages from [address] and they are asking for updates and what HH company he signed with. QUINN then received call from Charity at [address] and she voiced the [place] is through them, so the aides coming in are through [facility]. She spoke with her director and the aides are going to continue, they just can't do the skilled nurse.
--- NOTE | 2023-09-07 14:01 | SWNOTE1 ---
Sosa called SW back when in pt's room. Sosa voiced that she expressed to pt and Melonie that for safety and health reasons if they do not have a back up plan if a caregiver is sick and can't come in, then waiver program can stop the aides coming in. Pt expressed that he does have family as a back up plan. SW to keep Sosa updated.
--- NOTE | 2023-09-07 14:50 | SWNOTE1 ---
QUINN spoke to [facility] and provided them with PCP information, the final step is for the to verify his PCP will follow. QUINN spoke to Chrystal at [facility] and they are all set for delivery for tomorrow evening.
--- NOTE | 2023-09-07 16:22 | SWNOTE1 ---
Important Message from Medicare reviewed and discussed with patient. Pt. verbalized understanding and had SW sign form on behalf of pt. Original given to patient and copy placed in patient?s chart.
[2023-09-07] MEDS: DIAZEPAM 5 MG TABLET PO (21:45)
[2023-09-08] VITALS (7 sets, daily range): BP systolic 103–150; BP diastolic 64–92; PULSE 72–89; TEMP 36.3–36.8; O2SAT 94–98
[2023-09-08] MEDS: ERTAPENEM SODIUM 1 GM in 0.9 % SODIUM CHLORIDE 50 ML IV (04:03)
[2023-09-08] MEDS: AMPICILLIN SODIUM/SULBACTAM NA 3 GM in 0.9 % SODIUM CHLORIDE 100 ML IV ×2 (05:08→11:09)
[2023-09-08 05:26] LABS: Basophils Percent Auto 0.8 % (0.2-2.0); Eosinophils Absolute Auto 0.4 10^3/uL (0.0-0.7); Eosinophils Percent Auto 11.7 % (0.9-7.0); Hematocrit 37.2 % (42.0-54.0); Hemoglobin 12.2 g/dL (14.0-18.0); Immature Granulocytes Abs Auto 0.01 10^3/uL (0.00-0.03); Immature Granulocytes Pct Auto 0.3 % (0.0-0.5); Lymphocytes Absolute Auto 1.7 10^3/uL (1.2-3.8); Lymphocytes Percent Auto 44.6 % (20.5-60.0); Mean Corpuscular HGB Conc 32.8 g/dL (29.9-35.2); Mean Corpuscular Volume 85.3 fL (80.0-94.0); Mean Platelet Volume 10.3 fL (9.5-13.5); Monocytes Absolute Auto 0.6 10^3/uL (0.3-0.8); Monocytes Percent Auto 14.9 % (1.7-12.0); Neutrophils Absolute Auto 1.1 10^3/uL (1.4-6.5); Neutrophils Percent Auto 27.7 % (43.0-75.0); Platelet Count 226 10^3/uL (150-450); Red Blood Count 4.36 10^6/uL (4.70-6.10); Red Cell Distribution Width 13.4 % (11.0-15.0); White Blood Count 3.8 10^3/uL (4.0-11.0)
[2023-09-08 05:53] LABS: Alanine Aminotransferase 11 U/L (16-63); Albumin Globulin Ratio 0.9; Albumin Level 3.3 g/dL (3.4-5.0); Alkaline Phosphatase 64 U/L (46-116); Anion Gap 8.8; Aspartate Amino Transferase 11 U/L (15-37); BUN Creatinine Ratio 14.1; Bilirubin Total 0.8 mg/dL (0.2-1.0); Calcium 8.8 mg/dL (8.5-10.1); Carbon Dioxide 26.9 mmol/L (21.0-32.0); Chloride 105 mmol/L (98-107); Estimated GFR (African America >60 (>=60); Estimated GFR (Non-African Ame >60 (>=60); Globulin 3.5 g/dL; Glucose 76 mg/dL (74-106); Potassium 3.7 mmol/L (3.5-5.1); Sodium 137 mmol/L (136-145); Total Protein 6.8 g/dL (6.4-8.2)
[2023-09-08] MEDS: GABAPENTIN 300 MG CAPSULE 600 MG PO ×3 (05:59→22:31)
--- NOTE | 2023-09-08 09:20 | SWNOTE1 ---
QUINN had a message on voicemail from [facility]. They spoke with pt's PCP office and they are not going to follow pt for home IV anbx. They are in fact kicking him out of the practice for frequent no shows. [facility] can not follow unless we have a PCP that will follow. QUINN sent this message on to Nurse Practitioner and case management.
[2023-09-08] MEDS: SOLIFENACIN SUCCINATE 10 MG TABLET PO (11:09)
[2023-09-08] MEDS: ENSURE HP 237 ML LIQUID PO ×2 (11:09→20:21)
[2023-09-08] MEDS: ENOXAPARIN SODIUM 40 MG/0.4 ML SYRINGE SUBQ (11:09)
[2023-09-08] MEDS: CETIRIZINE HCL 10 MG TABLET PO (11:09)
[2023-09-08] MEDS: AMMONIUM LACTATE 226 GM BOTTLE 1 APPLIC TOPICAL ×2 (11:10→20:21)
[2023-09-08] MEDS: NYSTATIN 15 GM POWDER 1 APPLIC TOPICAL ×2 (11:10→20:21)
--- NOTE | 2023-09-08 11:34 | CM.NOTE ---
Rounds made with Dr. Altamirano. Dr. Altamirano discussed may need an alternate plan of care as there is no physician willing to follow with Home Health for IV antibiotics. Mr. Lately not agreeable to SNF for antibiotic therapy. Dr. Altamirano and Key Alvarado, MACHINE TANK OPERATOR to discuss with pharmacist for options.
--- NOTE | 2023-09-08 11:38 | SWNOTE1 ---
CONSTRUCTION PROJECT COORDINATOR, doctor, and pharmacy discussing dc plans.
--- NOTE | 2023-09-08 14:01 | SWNOTE1 ---
Elzbieta, nurse practitioner has agreed to follow pt at home for one month. [facility] and [facility] is alright with this. Both stressed the importance of pt getting PCP. Pt is complex and we were not able to find someone for a new pt appointment. [facility] will start services tomorrow morning. QUINN updated and expressed she has to be there and aide should be there as well. Melonie voiced she may video tape it so she can rememeber. CRF and dc med rec sent to [facility].
--- NOTE | 2023-09-08 14:30 | P.DS_ITS ---
<Statement entered by Kiel Altamirano MD - 09/08/23 21:28> Patient seen and examined, agree with assessment and plan below. Feels well but still c/o muscle spasms and tightness. Afebrile. Decreased appetite but no emesis or diarrhea. Multi drug resistant bacteria in urine and blood. Arranging home health for infusions. Will use high dose infusion of unasyn and invanz. Infusion company requested patient be monitored in hospital for next few days to make sure tolerating high dose unasyn protocol. Diagnosis: 1. Catheter associated UTI 2. Bacteremia 3. UTI due to multi drug resistant organism 4. Quadriplegic DS: Providers Provider Date of admission: 09/07/23 10:43 Primary care physician: Non-Staff PhysicianMD Consults: 09/06/23 09:00 Occupational Therapy Eval and Treat Routine Reason for consultation: quadriplegia Has provider been notified: No Physical Therapy Eval and Treat Routine Reason for consultation: quadriplegia Has provider been notified: No Discharging clinician: Elzbieta Alvarado DS: Diagnosis Discharge Diagnosis (1) Catheter-associated urinary tract infection: (2) Bacteremia: (3) Infection due to drug-resistant organism: (4) Quadriplegic spinal paralysis: (5) Chronic indwelling Hernandez catheter: DS: Summary Hospital Course Hospital Course: The patient was admitted with a multidrug-resistant UTI that was found on outpatient labs growing Klebsiella pneumoniae resistant to almost all agents except for amikacin and carbapenems.. A midline catheter was placed and he was initiated on ertapenem daily. Blood cultures were obtained on admission and those popped positive for Acinetobacter Baumannii and Staphylococcus aureus (MSSA) with the Acetobacter being multidrug-resistant and sensitive only to Unasyn, ceftazidime, and aminoglycosides. Unasyn is really the only agent that is indicated for bacteremia the patient was initiated on this IV as well. We plan a 14-day course as the patient is doing well and is not showing signs of sepsis as he remains afebrile with stable vital signs and normal mentation. He is being discharged home in stable condition with home health services to assist with administration of his IV antibiotics. Ertapenem will be dosed once daily and the Unasyn will be given by continuous IV infusion. The patient should establish with a new PCP the patient should establish with a new PCP as soon as possible and follow-up with them hopefully within the next 2 weeks. ADDENDUM 1530: We were contacted by the pharmacy providing antibiotic for the home health service. Since we have just increased the Unasyn dosing today to 27gm q24h continuous infusion (per [employer] for MDR acinetobacter bacteremia), they are requesting that the pt remain in the hospital through the weekend to monitor for drug toxicity as this is an extremely high dose. Discharge has been cancelled at this time. The pt remains in stable condition without s/s of sepsis. We will attempt to arrange for a follow up visit with ID after discharge as we do not have ID available for inpatient consultation at this facility Time Spent with Patient Time attestation: Total time spent providing and/or coordinating discharge services: Time spent: greater than 30 minutes Specific discharge activities: Physical exam, discussion of discharge plan, questions answered. Exam Constitutional Vital Signs, click to edit/add: Last Vital Signs Temp 97.7 F 09/08/23 11:15 Pulse 72 09/08/23 11:15 Resp 18 09/08/23 11:15 BP 143/80 H 09/08/23 11:15 Pulse Ox 97 09/08/23 11:15 O2 Del Method Room Air 09/08/23 11:15 Common normals: no apparent distress, oriented x3 and alert General appearance: cooperative Orientation/consciousness: Yes awake HENMT Common normals: normocephalic and head/scalp atraumatic Eye Common normals: PERRL, EOMs intact bilaterally, conjunctivae normal and no scleral icterus Conjunctiva: conjunctiva(e) normal Pupil: PERRL Neck & C-Spine Common normals: no JVD Respiratory Common normals: normal respiratory effort, no use of accessory muscles and clear to auscultation bilaterally Effort & inspection: able to speak in complete sentences and symmetric chest movement Cardio Common normals: no JVD, regular rate, regular rhythm, S1 normal heart sound, S2 normal heart sound, no murmurs and peripheral pulses 2+ throughout GI Common normals: Normal to inspection, nondistended, normoactive bowel sounds present and soft to palpation Palpation: soft and tender Details: LLQ; no guarding, not rigid and no rebound tenderness present Bladder/kidney exam: bladder normal to palpation Extremity Common normals: normal to inspection, full ROM and normal capillary refill General: edema (1+ bilat ankles); no clubbing and no cyanosis Neuro Common normals: moves all extremities (minimal movement remains) and no sensory deficits noted Speech: speech normal Motor exam: other (Quadriplegic. Chronic impairment w/ contractures) Psych Common normals: mental status grossly normal and activity/motor behavior normal DS: Data Data Completed and Pending Labs on day of discharge: Labs from last 24 hours 09/08/23 04:05 WBC 3.8 L RBC 4.36 L Hgb 12.2 L Hct 37.2 L MCV 85.3 MCH 28.0 MCHC 32.8 RDW 13.4 Plt Count 226 MPV 10.3 Neut % (Auto) 27.7 L Lymph % (Auto) 44.6 [place] % (Auto) 14.9 H Eos % (Auto) 11.7 H Baso % (Auto) 0.8 Neut # (Auto) 1.1 L Lymph # (Auto) 1.7 [place] # (Auto) 0.6 Eos # (Auto) 0.4 Baso # (Auto) 0.0 Abs Immat Gran (auto) 0.01 Imm/Tot Granulo (auto) 0.3 Sodium 137 Potassium 3.7 Chloride 105 Carbon Dioxide 26.9 Anion Gap 8.8 BUN 13.0 Creatinine 0.92 Est GFR ( Amer) >60 Est GFR (Non-Af Amer) >60 BUN/Creatinine Ratio 14.1 Glucose 76 Calcium 8.8 Total Bilirubin 0.8 AST 11 L ALT 11 L Alkaline Phosphatase 64 Total Protein 6.8 Albumin 3.3 L Globulin 3.5 Albumin/Globulin Ratio 0.9 Preliminary micro results at discharge 09/06/23 02:19 Urine Culture - Preliminary Urine,Clean Catch Klebsiella pneumoniae Stenotrophomonas maltophilia Acinetobacter baumannii 09/06/23 03:03 - Preliminary Blood Acinetobacter baumannii Staphylococcus aureus Discharge Plan Discharge Disposition: Home Health Service Condition: Good Discharge Medications: New ertapenem 1 gram recon soln 1 g IV DAILY 13 Days Qty: 13 0RF Rx Instructions: Mixed w/ 50 mls NS to be given IVPB ampicillin-sulbactam 3 gram recon soln 27 g IV .q24 14 Days Rx Instructions: Continuous infusion per pump Continued baclofen 20 mg tablet 20 mg PO BID loratadine 10 mg tablet 10 mg PO Q24H trospium 20 mg tablet 20 mg PO Q12H Rx Instructions: before meals ammonium lactate 12 % cream 1 applic TOPICAL BID baclofen 10 mg tablet 10 mg PO Q8H PRN (Reason: spasms) gabapentin 600 mg tablet 600 mg PO Q8H nystatin 100,000 unit/gram powder 1 applic TOPICAL BID Diet: advance to your usual diet Print Language: Turkmen Activity Restrictions/Additional Instructions: - Give IV antibiotic daily around 8 AM - Unasyn may be paused for 30 min to allow for Ertapenem infusion, then resume continuous Unasyn infusion. - Elzbieta Alvarado NP-C, will provide medical orders for home care for no more than 1 month to bridge until a new PCP can be found. Tooth Cutter Contact Wheel/Crepe Machine Operator Instructions: Discharge home with [facility], start of care will be 09/09/23 at 9:00am. Please call [facility] at [phone] with any questions. Contact [employer] in regards to follow up appointment that needs to be made with a physician They will assist with finding a new PCP. Phone number is [phone] Forms: Portal Instructions Follow Up Appointments: Follow up appt. to be made by the patient/family due to physician availability.
[2023-09-08] MEDS: BACLOFEN 10 MG TABLET PO (15:21)
[2023-09-08] MEDS: DIAZEPAM 5 MG TABLET PO ×2 (15:21→20:19)
--- NOTE | 2023-09-08 16:15 | SWNOTE1 ---
QUINN received a call from Chrystal at [facility] and she had questions in regards to the script and dosage for Unison. SW passed phone to TELETYPESETTER MONITOR that was in room. Our pharmacy then spoke with [facility] and it was determine that they can't deliver mediations today as he needs higher dosage and they want pt to be monitored at the hospital until at least Tuesday due to the high dosage he needs. SW, case management, and TELETYPESETTER MONITOR went to room to let pt know. QUINN called and cancelled transport and called Shaina at [facility]. QUINN called and let pt's Melonie know.
[2023-09-08] MEDS: SULBACTAM NA IV (17:09)
[2023-09-08] MEDS: SODIUM CHLORIDE 0.9% IV (17:09)
[2023-09-08] MEDS: AMPICILLIN SODIUM IV (17:09)
[2023-09-08] MEDS: BACLOFEN 10 MG TABLET 20 MG PO (20:19)
[2023-09-08] MEDS: SULFAMETHOXAZOLE/TRIMETHOPRIM 800-160 MG TABLET 1 TAB PO (20:20)
[2023-09-09] VITALS (7 sets, daily range): BP systolic 112–157; BP diastolic 79–86; PULSE 72–85; TEMP 36.4–36.6; O2SAT 95–98
[2023-09-09] MEDS: ERTAPENEM SODIUM 1 GM in 0.9 % SODIUM CHLORIDE 50 ML IV (04:53)
[2023-09-09 05:20] LABS: Eosinophils Absolute Auto 0.4 10^3/uL (0.0-0.7); Eosinophils Percent Auto 10.4 % (0.9-7.0); Hemoglobin 11.6 g/dL (14.0-18.0); Immature Granulocytes Abs Auto 0.01 10^3/uL (0.00-0.03); Immature Granulocytes Pct Auto 0.3 % (0.0-0.5); Lymphocytes Absolute Auto 1.8 10^3/uL (1.2-3.8); Lymphocytes Percent Auto 44.7 % (20.5-60.0); Mean Corpuscular HGB Conc 32.2 g/dL (29.9-35.2); Mean Platelet Volume 10.2 fL (9.5-13.5); Monocytes Absolute Auto 0.6 10^3/uL (0.3-0.8); Monocytes Percent Auto 14.7 % (1.7-12.0); Neutrophils Absolute Auto 1.1 10^3/uL (1.4-6.5); Neutrophils Percent Auto 28.9 % (43.0-75.0); Platelet Count 223 10^3/uL (150-450); Red Blood Count 4.14 10^6/uL (4.70-6.10); Red Cell Distribution Width 13.6 % (11.0-15.0); White Blood Count 3.9 10^3/uL (4.0-11.0)
[2023-09-09 05:43] LABS: Alanine Aminotransferase 12 U/L (16-63); Albumin Globulin Ratio 0.9; Albumin Level 3.1 g/dL (3.4-5.0); Alkaline Phosphatase 63 U/L (46-116); Anion Gap 12.2; Aspartate Amino Transferase 13 U/L (15-37); BUN Creatinine Ratio 16.3; Bilirubin Total 0.5 mg/dL (0.2-1.0); Calcium 8.4 mg/dL (8.5-10.1); Carbon Dioxide 25.8 mmol/L (21.0-32.0); Chloride 108 mmol/L (98-107); Estimated GFR (African America >60 (>=60); Estimated GFR (Non-African Ame >60 (>=60); Globulin 3.5 g/dL; Glucose 66 mg/dL (74-106); Sodium 142 mmol/L (136-145); Total Protein 6.6 g/dL (6.4-8.2)
[2023-09-09] MEDS: BACLOFEN 10 MG TABLET 20 MG PO ×2 (07:07→21:00)
[2023-09-09] MEDS: DIAZEPAM 5 MG TABLET PO ×2 (07:08→21:47)
--- NOTE | 2023-09-09 08:33 | CM.NOTE ---
Rounds made with Dr. Altamirano. Mr. Lately with multiple questions regarding care. Dr. Altamirano answers all questions.
--- NOTE | 2023-09-09 09:36 | PM.PN ---
Progress Note: Subjective Subjective Interval history: Patient stable this am. Continues to c/o spasms from contractures which are chronic. Arranging home health for IV antibiotics and changed to continuous infusion of unasyn. Afebrile. Urine with additional growth of drug resistant organisms. No nausea or emesis. No SOB or chest tightness. Exam Constitutional Vital Signs, click to edit/add: Last Vital Signs Temp 97.5 F L 09/09/23 00:00 Pulse 72 09/09/23 05:00 Resp 16 09/09/23 05:00 BP 126/80 09/09/23 05:00 Pulse Ox 95 09/09/23 05:00 O2 Del Method Room Air 09/09/23 05:00 Documenting provider has reviewed patient's vital signs: yes Common normals: no apparent distress, oriented x3 and alert HENMT Common normals: normocephalic Eye Common normals: PERRL and EOMs intact bilaterally Respiratory Common normals: normal respiratory effort and clear to auscultation bilaterally Cardio Common normals: regular rate, regular rhythm, no gallops, no murmurs and no rub GI Common normals: Normal to inspection, nondistended, normoactive bowel sounds present and non-tender Extremity Common normals: no pedal edema Progress Note: Objective Labs Labs: Short CBC 09/09/23 Range/Units 05:00 WBC 3.9 L (4.0-11.0) 10^3/uL Hgb 11.6 L (14.0-18.0) g/dL Hct 36.0 L (42.0-54.0) % Plt Count 223 (150-450) 10^3/uL BMP 09/09/23 05:00 Sodium 142 Potassium 4.0 Chloride 108 H Carbon Dioxide 25.8 BUN 15.0 Creatinine 0.92 Glucose 66 L Calcium 8.4 L Liver Function 09/09/23 Range/Units 05:00 Total Bilirubin 0.5 (0.2-1.0) mg/dL AST 13 L (15-37) U/L ALT 12 L (16-63) U/L Alkaline Phosphatase 63 (46-116) U/L Albumin 3.1 L (3.4-5.0) g/dL Progress Note: A&P Assessment and Plan (1) Catheter-associated urinary tract infection: (2) Bacteremia: (3) 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 pneumonia, S. maltophilia, and A. baumannii. S. maltophilia resistant but possibly represents colonization on catheter and not true infection. Continue Invanz and Unasyn for UTI and bacteremia. Add oral doxycycline and levaquin to cover S. maltophilia. Changed to continuous infusion unasyn and monitor labs and vitals. Home health will not be able to get antibiotics until 09/11. Urinary Catheter Management Urinary Catheter Management Urethral: Cath placed during this visit: no
[2023-09-09] MEDS: CETIRIZINE HCL 10 MG TABLET PO (09:59)
[2023-09-09] MEDS: SOLIFENACIN SUCCINATE 10 MG TABLET PO (09:59)
[2023-09-09] MEDS: ENOXAPARIN SODIUM 40 MG/0.4 ML SYRINGE SUBQ (09:59)
[2023-09-09] MEDS: ENSURE HP 237 ML LIQUID PO ×2 (09:59→21:27)
[2023-09-09] MEDS: AMMONIUM LACTATE 226 GM BOTTLE 1 APPLIC TOPICAL ×2 (10:00→21:27)
[2023-09-09] MEDS: NYSTATIN 15 GM POWDER 1 APPLIC TOPICAL ×2 (10:01→21:28)
[2023-09-09] MEDS: LEVOFLOXACIN 750 MG TABLET PO (10:04)
[2023-09-09] MEDS: GABAPENTIN 300 MG CAPSULE 600 MG PO ×3 (10:04→21:47)
[2023-09-09] MEDS: DOXYCYCLINE MONOHYDRATE 100 MG CAPSULE PO ×2 (10:04→21:26)
--- NOTE | 2023-09-09 14:12 | SWNOTE1 ---
QUINN spoke to Celine from [employer]. She voiced they do have a company for QUINN to try to get patient in to for her doctor. It is called [facility]. It would be a nurse to come out monthly and a doctor as well. They would not follow pt until they come out to see him. QUINN advised out [employer] is following for a month, so if we can get pt in to see this doctor within the next 30 days that would be great. Celine is faxing paperwork over for pt to fill out. QUINN received paperwork and will fill out whatever SW can and let the pt know so his can fill out the rest.
[2023-09-09] MEDS: SODIUM CHLORIDE 0.9% IV (18:16)
[2023-09-09] MEDS: SULBACTAM NA IV (18:16)
[2023-09-09] MEDS: AMPICILLIN SODIUM IV (18:16)
[2023-09-09 19:19] LABS: Bilirubin Urine NEGATIVE (NEGATIVE); Blood Urine SMALL (NEGATIVE); Clarity Urine CLEAR (CLEAR); Color Urine LT. YELLOW (YELLOW); Glucose Urine UA NEGATIVE (NEGATIVE); Ketones Urine NEGATIVE (NEGATIVE); Leukocyte Esterase Urine NEGATIVE (NEGATIVE); Nitrite Urine NEGATIVE (NEGATIVE); Protein Urine 30 mg/dL (NEG/TRACE)
[2023-09-10] VITALS: BP 142/73; PULSE 82; TEMP 36.6; O2SAT 97
[2023-09-10] MEDS: ERTAPENEM SODIUM 1 GM in 0.9 % SODIUM CHLORIDE 50 ML IV (02:55)
[2023-09-10 04:00] VITALS: BP 123/79; PULSE 73; TEMP 36.6; O2SAT 98
[2023-09-10 04:15] VITALS: O2SAT 98
[2023-09-10 05:12] LABS: Basophils Percent Auto 0.8 % (0.2-2.0); Eosinophils Absolute Auto 0.4 10^3/uL (0.0-0.7); Eosinophils Percent Auto 11.5 % (0.9-7.0); Hematocrit 34.1 % (42.0-54.0); Immature Granulocytes Abs Auto 0.01 10^3/uL (0.00-0.03); Immature Granulocytes Pct Auto 0.3 % (0.0-0.5); Lymphocytes Absolute Auto 1.7 10^3/uL (1.2-3.8); Lymphocytes Percent Auto 44.5 % (20.5-60.0); Mean Corpuscular HGB Conc 32.3 g/dL (29.9-35.2); Mean Corpuscular Hemoglobin 27.9 pg (25.9-34.0); Mean Corpuscular Volume 86.5 fL (80.0-94.0); Monocytes Absolute Auto 0.6 10^3/uL (0.3-0.8); Monocytes Percent Auto 15.2 % (1.7-12.0); Neutrophils Percent Auto 27.7 % (43.0-75.0); Platelet Count 206 10^3/uL (150-450); Red Blood Count 3.94 10^6/uL (4.70-6.10); Red Cell Distribution Width 13.6 % (11.0-15.0); White Blood Count 3.8 10^3/uL (4.0-11.0)
[2023-09-10 05:26] LABS: Alanine Aminotransferase 11 U/L (16-63); Albumin Globulin Ratio 0.8; Albumin Level 2.9 g/dL (3.4-5.0); Alkaline Phosphatase 65 U/L (46-116); Anion Gap 10.1; Aspartate Amino Transferase 10 U/L (15-37); BUN Creatinine Ratio 10.9; Bilirubin Total 0.3 mg/dL (0.2-1.0); Calcium 8.3 mg/dL (8.5-10.1); Carbon Dioxide 26.7 mmol/L (21.0-32.0); Chloride 109 mmol/L (98-107); Estimated GFR (African America >60 (>=60); Estimated GFR (Non-African Ame >60 (>=60); Globulin 3.5 g/dL; Glucose 101 mg/dL (74-106); Potassium 3.8 mmol/L (3.5-5.1); Sodium 142 mmol/L (136-145); Total Protein 6.4 g/dL (6.4-8.2)
[2023-09-10] MEDS: GABAPENTIN 300 MG CAPSULE 600 MG PO ×3 (07:30→22:33)
--- NOTE | 2023-09-10 07:40 | PM.PN ---
Progress Note: Subjective Subjective Interval history: Patient stable this am. Continues to have spasms from contractures which are chronic but reports his Baclofen dosage is incorrect. Arranging home health for IV antibiotics for Tuesday. Afebrile. No nausea or emesis. No SOB or chest tightness. Also complains of some left flank pain Exam Narrative Exam Narrative: General: Patient is alert, and oriented to person, place and time with normal affect, proper hygiene, upper arm contractures Skin: no visible rashes, or ulcers Head: atraumatic, acephalic Eyes: PERRLA, no nystagmus present, conjunctiva clear, no scleral icterus Heart: Normal rate and rhythm, no murmurs/rubs/gallops Lungs: no audible wheezes, crackles and normal breath sounds all lung diana Abdomen: Normal audible bowel sounds, no distension, No palpable masses, no organomegaly, no rebound/guarding/ or rigidity Musculoskeletal: no swelling bilateral lower extremities Constitutional Vital Signs, click to edit/add: Last Vital Signs Temp 97.8 F 09/10/23 04:00 Pulse 73 09/10/23 04:00 Resp 18 09/10/23 04:00 BP 123/79 09/10/23 04:00 Pulse Ox 98 09/10/23 04:15 O2 Del Method Room Air 09/10/23 04:15 Progress Note: Objective Labs Labs: Short CBC 09/10/23 Range/Units 04:51 WBC 3.8 L (4.0-11.0) 10^3/uL Hgb 11.0 L (14.0-18.0) g/dL Hct 34.1 L (42.0-54.0) % Plt Count 206 (150-450) 10^3/uL BMP 09/10/23 04:51 Sodium 142 Potassium 3.8 Chloride 109 H Carbon Dioxide 26.7 BUN 12.0 Creatinine 1.10 Glucose 101 Calcium 8.3 L Liver Function 09/10/23 Range/Units 04:51 Total Bilirubin 0.3 (0.2-1.0) mg/dL AST 10 L (15-37) U/L ALT 11 L (16-63) U/L Alkaline Phosphatase 65 (46-116) U/L Albumin 2.9 L (3.4-5.0) g/dL Urine 09/09/23 Range/Units 19:00 Urine Color Lt. yellow (YELLOW) Urine Clarity Clear (CLEAR) Urine pH 8.0 (5.0-9.0) Ur Specific [place] 1.020 (1.005-1.025) Urine Protein 30 A (NEG/TRACE) mg/dL Urine Glucose (UA) Negative (NEGATIVE) mg/dL Progress Note: A&P Assessment and Plan (1) Catheter-associated urinary tract infection: Assessment and Plan: continue Unasyn and INVANZ recent addition of Levaquin and Doxy PO due to multidrug resistance. continue to monitor daily labs closely. 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 continue gabapentin Plan Patient is a full code Lovenox for DVT prophylaxis Patient is inpatient and hopeful discharge Tuesday with IV infusions at home. Urinary Catheter Management Urinary Catheter Management Urethral: Cath placed during this visit: no
[2023-09-10] MEDS: ENOXAPARIN SODIUM 40 MG/0.4 ML SYRINGE SUBQ (09:39)
[2023-09-10] MEDS: DOXYCYCLINE MONOHYDRATE 100 MG CAPSULE PO ×2 (09:39→22:31)
[2023-09-10] MEDS: POLYETHYLENE GLYCOL 3350 17 GM POWDER PACKET PO (09:39)
[2023-09-10] MEDS: SOLIFENACIN SUCCINATE 10 MG TABLET PO (09:39)
[2023-09-10] MEDS: BACLOFEN 10 MG TABLET 20 MG PO ×3 (09:39→22:32)
[2023-09-10] MEDS: SENNOSIDES/DOCUSATE SODIUM 1 TAB TABLET PO (09:40)
[2023-09-10] MEDS: LEVOFLOXACIN 750 MG TABLET PO (09:40)
[2023-09-10] MEDS: CETIRIZINE HCL 10 MG TABLET PO (09:40)
[2023-09-10] MEDS: AMMONIUM LACTATE 226 GM BOTTLE 1 APPLIC TOPICAL ×2 (09:41→22:30)
[2023-09-10] MEDS: NYSTATIN 15 GM POWDER 1 APPLIC TOPICAL ×2 (09:42→22:32)
[2023-09-10 11:29] VITALS: O2SAT 97
[2023-09-10] MEDS: HYDROCODONE/ACET 5-325 MG TABLET 1 TAB PO ×2 (11:45→22:36)
[2023-09-10] MEDS: AMPICILLIN SODIUM IV (15:00)
[2023-09-10] MEDS: SODIUM CHLORIDE 0.9% IV (15:00)
[2023-09-10] MEDS: SULBACTAM NA IV (15:00)
[2023-09-10 19:31] VITALS: O2SAT 97
[2023-09-10] MEDS: DIAZEPAM 5 MG TABLET PO (22:36)
[2023-09-10 22:38] VITALS: PULSE 80
[2023-09-11] VITALS (7 sets, daily range): BP systolic 103–156; BP diastolic 59–94; PULSE 65–89; TEMP 36.3–36.8; O2SAT 93–99
[2023-09-11 05:11] LABS: Hemoglobin 10.9 g/dL (14.0-18.0); Mean Corpuscular HGB Conc 32.1 g/dL (29.9-35.2); Mean Corpuscular Hemoglobin 27.7 pg (25.9-34.0); Mean Corpuscular Volume 86.5 fL (80.0-94.0); Mean Platelet Volume 9.8 fL (9.5-13.5); Platelet Count 194 10^3/uL (150-450); Red Blood Count 3.93 10^6/uL (4.70-6.10); Red Cell Distribution Width 13.6 % (11.0-15.0); White Blood Count 3.2 10^3/uL (4.0-11.0)
[2023-09-11 05:25] LABS: Alanine Aminotransferase 12 U/L (16-63); Albumin Globulin Ratio 0.8; Albumin Level 2.8 g/dL (3.4-5.0); Alkaline Phosphatase 59 U/L (46-116); Anion Gap 9.9; Aspartate Amino Transferase 11 U/L (15-37); Bilirubin Total 0.6 mg/dL (0.2-1.0); Calcium 8.5 mg/dL (8.5-10.1); Carbon Dioxide 26.8 mmol/L (21.0-32.0); Chloride 107 mmol/L (98-107); Estimated GFR (African America >60 (>=60); Estimated GFR (Non-African Ame >60 (>=60); Globulin 3.4 g/dL; Glucose 91 mg/dL (74-106); Potassium 3.7 mmol/L (3.5-5.1); Sodium 140 mmol/L (136-145); Total Protein 6.2 g/dL (6.4-8.2)
[2023-09-11 05:47] LABS: Atypical Lymphocytes Abs Man 0.25; Eosinophils Absolute Manual 0.32 10^3/uL (0.00-0.70); Hypersegmented Neutrophils 2+; Lymphocytes Absolute Manual 1.53 10^3/uL (1.20-3.80); Monocytes Absolute Manual 0.22 10^3/uL (0.30-0.80); Segmented Neut Absolute Manual 0.89 10^3/uL (1.4-6.5)
[2023-09-11] MEDS: ERTAPENEM SODIUM 1 GM in 0.9 % SODIUM CHLORIDE 50 ML IV (05:55)
--- NOTE | 2023-09-11 07:26 | PM.PN ---
Progress Note: Subjective Subjective Interval history: Patient resting comfortably in bed. Denies any new complaints or issues. Afebrile overnight. Discussed normal renal and liver labs with patient and the plan for hopeful discharge home tomorrow with IV antibiotics. Exam Narrative Exam Narrative: General: Patient is alert, and oriented to person, place and time with normal affect, proper hygiene, upper arm contractures Skin: no visible rashes, or ulcers Head: atraumatic, acephalic Eyes: PERRLA, no nystagmus present, conjunctiva clear, no scleral icterus Heart: Normal rate and rhythm, no murmurs/rubs/gallops Lungs: no audible wheezes, crackles and normal breath sounds all lung diana Abdomen: Normal audible bowel sounds, no distension, No palpable masses, no organomegaly, no rebound/guarding/ or rigidity Musculoskeletal: no swelling bilateral lower extremities Constitutional Vital Signs, click to edit/add: Last Vital Signs Temp 97.4 F L 09/11/23 04:43 Pulse 65 09/11/23 04:43 Resp 18 09/11/23 04:43 BP 103/59 09/11/23 04:43 Pulse Ox 93 L 09/11/23 04:43 O2 Del Method Room Air 09/11/23 04:43 Progress Note: Objective Labs Labs: Short CBC 09/11/23 Range/Units 05:01 WBC 3.2 L (4.0-11.0) 10^3/uL Hgb 10.9 L (14.0-18.0) g/dL Hct 34.0 L (42.0-54.0) % Plt Count 194 (150-450) 10^3/uL BMP 09/11/23 05:01 Sodium 140 Potassium 3.7 Chloride 107 Carbon Dioxide 26.8 BUN 12.0 Creatinine 0.92 Glucose 91 Calcium 8.5 Liver Function 09/11/23 Range/Units 05:01 Total Bilirubin 0.6 (0.2-1.0) mg/dL AST 11 L (15-37) U/L ALT 12 L (16-63) U/L Alkaline Phosphatase 59 (46-116) U/L Albumin 2.8 L (3.4-5.0) g/dL Progress Note: A&P Assessment and Plan (1) Catheter-associated urinary tract infection: Assessment and Plan: continue Unasyn and INVANZ recent addition of Levaquin and Doxy PO (14 day course total) due to multidrug resistance. continue to monitor daily labs closely, normal renal and liver functions today. 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 (4) Quadriplegic spinal paralysis: Assessment and Plan: scheduled Baclofen and add PO [place] as needed. continue gabapentin Plan Patient is a full code Lovenox for DVT prophylaxis Patient is inpatient and hopeful discharge tomorrow with IV infusions at home. Urinary Catheter Management Urinary Catheter Management Urethral: Cath placed during this visit: no
[2023-09-11] MEDS: ENOXAPARIN SODIUM 40 MG/0.4 ML SYRINGE SUBQ (10:03)
[2023-09-11] MEDS: LEVOFLOXACIN 750 MG TABLET PO (10:04)
[2023-09-11] MEDS: CETIRIZINE HCL 10 MG TABLET PO (10:04)
[2023-09-11] MEDS: SOLIFENACIN SUCCINATE 10 MG TABLET PO (10:04)
[2023-09-11] MEDS: BACLOFEN 10 MG TABLET 20 MG PO ×3 (10:04→21:11)
[2023-09-11] MEDS: NYSTATIN 15 GM POWDER 1 APPLIC TOPICAL (10:05)
[2023-09-11] MEDS: DOXYCYCLINE MONOHYDRATE 100 MG CAPSULE PO ×2 (10:05→21:11)
[2023-09-11] MEDS: SENNOSIDES/DOCUSATE SODIUM 1 TAB TABLET PO (10:05)
[2023-09-11] MEDS: GABAPENTIN 300 MG CAPSULE 600 MG PO ×3 (10:05→21:11)
[2023-09-11] MEDS: AMMONIUM LACTATE 226 GM BOTTLE 1 APPLIC TOPICAL (10:06)
[2023-09-11] MEDS: SULBACTAM NA IV (15:31)
[2023-09-11] MEDS: AMPICILLIN SODIUM IV (15:31)
[2023-09-11] MEDS: SODIUM CHLORIDE 0.9% IV (15:31)
[2023-09-11] MEDS: HYDROCODONE/ACET 5-325 MG TABLET 1 TAB PO (18:50)
[2023-09-11] MEDS: DIAZEPAM 5 MG TABLET PO (18:50)
[2023-09-12] MEDS: ERTAPENEM SODIUM 1 GM in 0.9 % SODIUM CHLORIDE 50 ML IV (02:10)
[2023-09-12 06:19] VITALS: BP 155/89; PULSE 71; TEMP 36.4; O2SAT 98
[2023-09-12] MEDS: BACLOFEN 10 MG TABLET 20 MG PO ×2 (06:32→13:57)
[2023-09-12] MEDS: GABAPENTIN 300 MG CAPSULE 600 MG PO ×2 (06:32→13:57)
--- NOTE | 2023-09-12 07:39 | PM.DS1 ---
DS: Providers Provider Date of admission: 09/07/23 10:43 Primary care physician: Non-Staff PhysicianMD Admitting clinician: Kiel Altamirano Consults: 09/06/23 09:00 Occupational Therapy Eval and Treat Routine Reason for consultation: quadriplegia Has provider been notified: No Physical Therapy Eval and Treat Routine Reason for consultation: quadriplegia Has provider been notified: No 09/09/23 08:54 Consult to Wound Care Routine Consulting Provider: Trevor Muñoz Reason for consultation: Wound Discharging clinician: Belinda Tucker DS: Diagnosis Discharge Diagnosis (1) Catheter-associated urinary tract infection: Qualifiers: Encounter type: initial encounter Indwelling urinary catheter type: indwelling urethral catheter Qualified Code(s): T83.511A - Infection and inflammatory reaction due to indwelling urethral catheter, initial encounter; N39.0 - Urinary tract infection, site not specified (2) Bacteremia: (3) 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 A midline catheter was placed and he was initiated on ertapenem daily. Blood cultures were obtained on admission and those popped positive for Acinetobacter Baumannii and Staphylococcus aureus (MSSA) with the Acetobacter being multidrug-resistant and sensitive only to Unasyn, ceftazidime, and aminoglycosides. Unasyn is really the only agent that is indicated for bacteremia the patient was initiated on this IV as well. We plan a 14-day course as the patient is doing well and is not showing signs of sepsis as he remains afebrile with stable vital signs and normal mentation. He is being discharged home in stable condition with home health services to assist with administration of his IV antibiotics. Ertapenem will be dosed once daily and the Unasyn will be given by continuous IV infusion. The patient should establish with a new PCP the patient should establish with a new PCP as soon as possible and follow-up with them hopefully within the next 2 weeks. ADDENDUM 1530: We were contacted by the pharmacy providing antibiotic for the home health service. Since we have just increased the Unasyn dosing today to 27gm q24h continuous infusion (per [facility] for MDR acinetobacter bacteremia), they are requesting that the pt remain in the hospital through the weekend to monitor for drug toxicity as this is an extremely high dose. Discharge has been cancelled at this time. The pt remains in stable condition without s/s of sepsis. We will attempt to arrange for a follow up visit with ID after discharge as we do not have ID available for inpatient consultation at this facility Addendum 09/12/23: patient did well over the weekend, labs at the time of discharge are stable. I have updated IV antibiotic orders to include a CMP weekly x 2 and stop dates for both antibiotics. The oral Levaquin and Doxycycline will be for 11 more days, all antibiotics will be for 14 day duration total. He may return to the ER with any worsening signs or symptoms. Discharge with PICC. Time Spent with Patient Time attestation: Total time spent providing and/or coordinating discharge services: Exam Narrative Exam Narrative: General: Patient is alert, and oriented to person, place and time with normal affect, proper hygiene, upper arm contractures Skin: no visible rashes, or ulcers Head: atraumatic, acephalic Eyes: PERRLA, no nystagmus present, conjunctiva clear, no scleral icterus Heart: Normal rate and rhythm, no murmurs/rubs/gallops Lungs: no audible wheezes, crackles and normal breath sounds all lung diana Abdomen: Normal audible bowel sounds, no distension, No palpable masses, no organomegaly, no rebound/guarding/ or rigidity Musculoskeletal: no swelling bilateral lower extremities Constitutional Vital Signs, click to edit/add: Last Vital Signs Temp 97.6 F 09/12/23 06:19 Pulse 71 09/12/23 06:19 Resp 18 09/12/23 06:19 BP 155/89 H 09/12/23 06:19 Pulse Ox 98 09/12/23 06:19 O2 Del Method Room Air 09/12/23 06:19 DS: Data Data Completed and Pending Labs on day of discharge: Preliminary micro results at discharge 09/08/23 04:32 - Preliminary Blood NO GROWTH AT 36-48 HOURS. FINAL TO FOLLOW. 09/08/23 04:05 Blood Culture Result 1 - Preliminary Blood NO GROWTH AT 36-48 HOURS. FINAL TO FOLLOW. Discharge Plan Discharge Disposition: Home Health Service Condition: Good Discharge Medications: New ertapenem 1 gram recon soln 1 g IV DAILY 13 Days Qty: 13 0RF Rx Instructions: Mixed w/ 50 mls NS to be given IVPB ampicillin-sulbactam 3 gram recon soln 27 g IV .q24 14 Days Rx Instructions: Continuous infusion per pump doxycycline monohydrate 100 mg Capsule 100 mg PO BID 11 Days Qty: 22 0RF levofloxacin 750 mg Tablet 750 mg PO QD 11 Days Qty: 11 0RF Continued baclofen 20 mg tablet 20 mg PO BID loratadine 10 mg tablet 10 mg PO Q24H trospium 20 mg tablet 20 mg PO Q12H Rx Instructions: before meals ammonium lactate 12 % cream 1 applic TOPICAL BID baclofen 10 mg tablet 10 mg PO Q8H PRN (Reason: spasms) gabapentin 600 mg tablet 600 mg PO Q8H nystatin 100,000 unit/gram powder 1 applic TOPICAL BID Diet: advance to your usual diet Print Language: Filipino Activity Restrictions/Additional Instructions: - Give IV antibiotic daily around 8 AM - Unasyn may be paused for 30 min to allow for Ertapenem infusion, then resume continuous Unasyn infusion. - Elzbieta Alvarado NP-C, will provide medical orders for home care for no more than 1 month to bridge until a new PCP can be found. 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 Please call [facility] at [phone] with any questions. Contact [facility] in regards to follow up appointment that needs to be made with a physician They will assist with finding a new PCP. Phone number is [phone] Forms: Portal Instructions Follow Up Appointments: Follow up appt. to be made by the patient/family due to physician availability. Discharge location: Home with Home health
[2023-09-12 08:00] VITALS: BP 144/88; PULSE 81; TEMP 36.4; O2SAT 97
--- NOTE | 2023-09-12 09:14 | W.PM.WC_ITS ---
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 Air mattress already in place. Patient is an incomplete quad, still has some movement of legs and arms and can lift up his torso. He is upset that he is still in the hospital and he has been here for a week and why haven't you come by already, this should have been looked at and been cared for already. Reassured him that his skin has been cared for by the nursing staff and that they called me to give them my opinion on continued care after discharge. Patient is in agreement to assessment. When turning patient to assess skin, patient is found to have been incontinent of large amount of loose brown stool. Explained to patient that he is stooling and that I will help get him cleaned up and called floor nursing home physician to help. Upon assessment, patient has areas of scaring and healing to back and buttocks/sacral area. Patient asks if there is a bandage on the area, I told patient he did not and he was upset stating there is supposed to be a bandage on it. I told him that due to his stooling it may have come off at some point. Mid upper back area is scarred, no active drainage or open skin. Right and left buttocks with pink scarred skin as well. Dried skin noted to right buttock, did not aggressively remove as skin is fragile and did not want to cause trauma to the area. No active drainage noted, however, right buttock scarred skin does appear to be somewhat fragile from apparent friction/shearing. He does ask me if I see the hole , I told patient what I see appears to be healing well. No areas of redness, warmth, edema, odor or other signs of infection noted. Back is dry, intact with exception of scarred area to upper mid back. Elbows intact. Occipital intact. Ears intact. Bilateral groin/scrotum intact. Patient denies any other open skin or concerns at this time. Reiterates that he wants to go home today and does not understand what is taking so long to get things set up. He is also concerned about his incontinent stooling and apologizes that he did not know he had a bowel movement. Asked patient if his stomach was upset and he did state that he does not have an appetite currently and did not want breakfast ordered. Floor nursing home physician updated bedside RN. Recommendations: Triad paste to buttocks - do not recommend bandage with current loose stooling - reapply as needed, thin layer. reposition frequently continue nystatin powder as written Continue air mattress Photos and orders in chart. Please call [phone] with any questions or concerns. Trevor Muñoz, MERRITTN, RN, CWON
--- NOTE | 2023-09-12 09:30 | SWNOTE1 ---
Plan is for pt to be dc today with [facility] home care and get IV anbx at home. QUINN spoke with Chrystal at [facility] and she would like SW to fax over labs and doctor note from the weekend. QUINN asked if they would need labs from today since pt refused and she stated no she does not think so. QUINN also asked if a new script is needed and she stated yes. QUINN sent information on to doctor and provided her with a blank script to fill out.
--- NOTE | 2023-09-12 09:38 | SWNOTE1 ---
QUINN faxed over labs from 09/10/23 and 09/11/23 and progress notes from the same days to [facility].
[2023-09-12] MEDS: ENOXAPARIN SODIUM 40 MG/0.4 ML SYRINGE SUBQ (09:54)
[2023-09-12] MEDS: DOXYCYCLINE MONOHYDRATE 100 MG CAPSULE PO (09:54)
[2023-09-12] MEDS: LEVOFLOXACIN 750 MG TABLET PO (09:55)
[2023-09-12] MEDS: NYSTATIN 15 GM POWDER 1 APPLIC TOPICAL (09:55)
[2023-09-12] MEDS: CETIRIZINE HCL 10 MG TABLET PO (09:55)
[2023-09-12] MEDS: SOLIFENACIN SUCCINATE 10 MG TABLET PO (09:55)
[2023-09-12] MEDS: AMMONIUM LACTATE 226 GM BOTTLE 1 APPLIC TOPICAL (09:56)
--- NOTE | 2023-09-12 10:03 | PC.NURSE ---
All laxatives and stool softeners were held at morning med pass d/t diarrhea.
--- NOTE | 2023-09-12 10:06 | SWNOTE1 ---
Pt and completed paperwork for Santi, the doctor that comes to the home to visit. SW faxed it over to them and advised them to reach out to patient directly with further questions. SW did speak with pt to let him know that SW has sent updated lab work and progress notes to [facility] and [facility] and we have to wait until we have the final approval for pt to be discharged. Pt voiced understanding and he advised SW that he better be able to go home today, he has been here for a week and that is way too long, per patient.
[2023-09-12 11:13] VITALS: O2SAT 97
--- NOTE | 2023-09-12 11:25 | CM.NOTE ---
Rounds made with Dr. Tucker. Potential for discharge today to home with Home Health and IV antibiotics.
--- NOTE | 2023-09-12 11:49 | SWNOTE1 ---
SW called and left message for Chrystal at [facility] to see if they received updates and if pt is able to be discharged, waiting to hear back.
[2023-09-12 12:00] VITALS: BP 143/87; PULSE 80; TEMP 36.6; O2SAT 98
--- NOTE | 2023-09-12 13:34 | SWNOTE1 ---
SW spoke to Pharmacy at [facility] and they have everything they need and will deliver medication tonight. SW spoke to [facility] and they will start care tomorrow morning between 8am&9am. All is set. SW called [facility] and they will be here at 5:45pm. SW notified nursing. SW called pt's Melonie and left her a voicemail. SW expressed the importance of her, an aide, or step son being there in morning to be educated on IV's. Pt now only has 7 days for one IV and 8 days left for the other IV. SW also expressed via voicemail to Melnoie that they are delivering meds tonight and someone has to be home just in case pt is not home in time. SW to let pt know as well.
[2023-09-12] MEDS: AMPICILLIN SODIUM IV (16:58)
[2023-09-12] MEDS: SODIUM CHLORIDE 0.9% IV (16:58)
[2023-09-12] MEDS: SULBACTAM NA IV (16:58)
--- NOTE | 2023-09-13 15:06 | CM.DCFOLLOWU ---
Person spoke with: patient How are you feeling? well How is your pain? no pain Did you understand your discharge instructions? yes Do you have any questions about your discharge instructions? no Were you given any prescriptions at discharge? yes Were you able to get your prescriptions filled? yes Do you understand how to take your medications as ordered? yes Do you have any questions about your follow up appointment and do you plan to keep your follow up appointment? [facility] came this morning and IV's are started. He has not heard from [facility] yet. Is there anything else that you would like to discuss? no Questions/Comments/Concerns/Other: no
== END 2023-09-12 18:04 | disposition home health service (06) | DRG 698 ==
LOC: ER 03:39 → ICU 04:11 → MS 09-07 13:05
PROVIDERS: Family Medicine; Admitting Provider Nurse Practitioner; Emergency Provider Emergency Medicine; Visit Provider Family Medicine
DX: T83.511A Infection and inflammatory reaction due to indwelling urethral catheter, initial encounter (principal); G82.50 Quadriplegia, unspecified; Z16.24 Resistance to multiple antibiotics; R78.81 Bacteremia; Y84.6 Urinary catheterization as the cause of abnormal reaction of the patient, or of later complication, without mention of misadventure at the time of the procedure; N39.0 Urinary tract infection, site not specified; B95.61 Methicillin susceptible Staphylococcus aureus infection as the cause of diseases classified elsewhere; B96.89 Other specified bacterial agents as the cause of diseases classified elsewhere; B96.1 Klebsiella pneumoniae [K. pneumoniae] as the cause of diseases classified elsewhere; N31.2 Flaccid neuropathic bladder, not elsewhere classified; F17.200 Nicotine dependence, unspecified, uncomplicated; Z79.899 Other long term (current) drug therapy
CPT/HCPCS: 36415; 36569; 36592; 51702; 80048; 80053; 81001; 81003; 83605; 85007; 85025; 85027; 87040; 87086; 87150; 87186; 94761; 96365; 96366; 96367; 96368; 96372; 97161; 99285; C1887; G0378; J0295; J1335; J1650

== ENCOUNTER 2023-10-17 14:56 | Outpatient (OUT) | payer MEDICARE, MEDICAID, SELFPAY ==
--- NOTE | 2023-10-17 15:07 | XR_ITS ---
The [address] [address] Patient Name: FEDE ARGUETA MRN: [id number] date: 1955 Sex: M Assigned Patient Location: [facility] Current Patient Location: [facility] Accession/Order Number: [id number] Exam Date: 10/17/2023 15:11 Report Date: 10/18/2023 15:04 At the request of: LISA WEBBER Procedure: XR abdomen 1V EXAMINATION: XR abdomen 1V HISTORY: Left Side Abdominal Pain, History Kidney Stones COMPARISON: No relevant comparison available. FINDINGS: KIDNEY/URETER - RIGHT: No visible renal or ureteral calcifications. KIDNEY/URETER - LEFT: No visible renal or ureteral calcifications. PELVIS: No visible ureteral stones. Stable pelvic calcifications compatible with phleboliths. BOWEL: No abnormal dilation or deviation. BONES: No acute abnormality. OTHER: Negative. No abnormal gaseous collections. XR/XR abdomen 1V IMPRESSION: 1. No urinary tract calculi. 2. Normal bowel gas pattern. Electronically authenticated by: MINERVA REN Date: 10/18/2023 15:04
== END 2023-10-17 14:57 | disposition home or self-care (01) ==
LOC: RAD 14:59
PROVIDERS: Visit Provider Nurse Practitioner
DX: R10.9 Unspecified abdominal pain (principal); Z96.0 Presence of urogenital implants; Z87.442 Personal history of urinary calculi
CPT/HCPCS: 74018

== ENCOUNTER 2023-10-17 15:01 | Outpatient (OUT) | payer MEDICARE, MEDICAID, SELFPAY ==
--- NOTE | 2023-10-17 15:09 | XR_ITS ---
The [address] [address] Patient Name: FEDE ARGUETA MRN: [id number] date: 1955 Sex: M Assigned Patient Location: LAB Current Patient Location: [facility] Accession/Order Number: [id number] Exam Date: 10/17/2023 15:11 Report Date: 10/18/2023 15:08 At the request of: JACQUE PAEZ Procedure: XR pelvis 1-2V PROCEDURE: XR pelvis 1-2V HISTORY: Stage 4 Sacral Pressure Ulcer COMPARISON: None. FINDINGS: BONES:Moderate degenerative change of the hip joints. Disc space narrowing of the lower lumbar spine. No fracture, cortical destruction, periosteal reaction. Limited evaluation of lower sacrum and coccyx which are secured by dense overlying bowel content. SOFT TISSUES:No visible soft tissue swelling. EFFUSION:None visible. OTHER: Negative. XR/XR pelvis 1-2V IMPRESSION: 1. Very limited evaluation of distal sacrum and coccyx. I suspect that these are obscured by dense bowel content however, bone destruction cannot be excluded. Consider CT pelvis for further evaluation. 2. Degenerative changes of lumbar spine and bilateral hip joints. Electronically authenticated by: MINERVA REN Date: 10/18/2023 15:08
== END 2023-10-17 15:02 | disposition home or self-care (01) ==
LOC: LAB 15:01
PROVIDERS: Visit Provider Nurse Practitioner Adult Health
DX: R10.9 Unspecified abdominal pain (principal); Z96.0 Presence of urogenital implants; Z87.442 Personal history of urinary calculi; L89.154 Pressure ulcer of sacral region, stage 4
CPT/HCPCS: 72170; 74018

== ENCOUNTER 2023-11-15 13:22 | Outpatient (OUT) | payer MEDICARE, MEDICAID, SELFPAY ==
--- NOTE | 2023-11-15 13:36 | CT_ITS ---
The [address] [address] Patient Name: FEDE ARGUETA MRN: [id number] date: 1955 Sex: M Assigned Patient Location: LAB Current Patient Location: Accession/Order Number: [id number] Exam Date: 11/15/2023 14:20 Report Date: 11/16/2023 06:07 At the request of: JACQUE PAEZ Procedure: CT pelvis wo con EXAMINATION: CT pelvis wo con HISTORY: Nonhealing Sacral Ulcer COMPARISON: CT abdomen pelvis 04/15/2023 TECHNIQUE: Axial, Coronal, and Sagittal images were obtained without and/or with IV contrast as indicated by examination type. Dose reduction techniques were achieved by using automated exposure control and/or adjustment of mA and/or kV according to patient size and/or use of iterative reconstruction technique FINDINGS: BOWEL: Large amount of stool within rectal vault. LYMPH NODES: No adenopathy. URINARY BLADDER: Hernandez catheter within nondistended urinary bladder. No visible focal wall thickening, lesion, or calculus. PELVIC ORGANS: No visible mass. Pelvic organs appropriate for patient age. ANTERIOR WALL: No hernia. BONES: Soft tissue ulceration posterior midline overlying the distal sacrum and coccyx with mild inflammatory changes and small amount of free air adjacent to the distal margin of the sacrum. Osseous destruction involving the right side of sacrum at this level. 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 OTHER: Negative. CT/CT pelvis wo con IMPRESSION: 1. Decubitus ulcer with extension to the distal aspect of the sacrum/coccyx; greater than previously seen. 2. Mild osseous destruction of distal right aspect of sacrum; greater than previously seen compatible with osteomyelitis. Electronically authenticated by: MINERVA REN Date: 11/16/2023 06:07
[2023-11-15 13:44] LABS: Estimated GFR (African America >60 (>=60); Estimated GFR (Non-African Ame >60 (>=60)
== END 2023-11-15 13:23 | disposition home or self-care (01) ==
LOC: LAB 13:23
PROVIDERS: Visit Provider Nurse Practitioner Adult Health
DX: L89.159 Pressure ulcer of sacral region, unspecified stage (principal)
CPT/HCPCS: 36415; 72192; 82565

== ENCOUNTER 2023-11-20 05:27 | Emergency (ER) | payer MEDICARE, MEDICAID, SELFPAY ==
--- OUTSIDE RECORDS SUMMARY | 2023-11-20 05:35 | XMS_ITS | CCD ---
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 aminotransferase [ Enzymatic activity/volume] in Serum or PlasmaOrdered By: Danial Gould on 07-22-2023 AST [Catalytic activity/Vol] 15 U/L Normal 13-39 [facility] Comment on above: Performed By: #### C PETEY, BMP #### [address] Automated basophil %Ordered By: Danial Gould on 07-22-2023 Basophils/100 WBC (Bld) 1.0 % Normal . [facility] Comment on above: Performed By: #### C BC, BMP #### [address] Automated basophil countOrde red By: Danial Gould on 07-22-2023 Basophils (Bld) [#/Vol] 0.0 10*3/uL Normal 0.0-0.2 [facility] Comment on above: Result Comment: PERF ORMED BY: [place] [address] PATHOLOGIST PROFESSIONAL TUTOR RENETTA MONACO M.D. Performed By: #### C BC, BMP #### [address] Automated blood monocyte cou ntOrdered By: Danial Gould on 07-22-2023 Monocytes (Bld) [#/Vol] 0.5 10*3/uL Normal 0.0-0.8 [facility] Comment on above: Performed By: #### C BC, BMP #### [address] Automated eosinophil %Ordere d By: Danial Gould on 07-22-2023 Eosinophils/100 WBC (Bld) 6.4 % Normal . [facility] Comment on above: Performed By: #### C BC, BMP #### [address] Automated eosinophil countOr dered By: Danial Gould on 07-22-2023 Eosinophils (Bld) [#/Vol] 0.3 10*3/uL Normal 0.0-0.45 [facility] Comment on above: Performed By: #### C BC, BMP #### [address] Automated erythrocytes count in urine sediment (number/area)Ordered By: Danial Gould on 07-22-2023 RBC Auto (Urine sed) [#/Area] Innumerable [HPF] 0-4 [facility] Automated leukocytes count i n urine sediment (number/area)Ordered By: Danial Gould on 07-22-2023 WBC Auto (Urine sed) [#/Area] Innumerable [HPF] 0-4 [facility] Automated monocyte %Ordered By: Danial Gould on 07-22-2023 Monocytes/100 WBC (Bld) 12.1 % Normal . [facility] Comment on above: Performed By: #### C BC, BMP #### [place] [id number] [place] Automated neutrophil %Ordere d By: Danial Gould on 07-22-2023 Neutrophils/100 WBC (Bld) 42.8 % Normal . [facility] Comment on above: Performed By: #### C PETEY, BMP #### [facility] [address] Automated urine color determ inationOrdered By: Danial Gould on 07-22-2023 Color (U) [place] Critically abnormal Yellow [facility] Comment on above: Order Comment: Name Collection Type:: Hernandez Catheter Performed By: #### C PETEY, BMP #### [facility] [address] [place] [address] Bilirubin Test strip Ql (U)O rdered By: Danial Gould on 07-22-2023 Bilirubin Ql (U) Negative Negative [facility] Bilirubin.total [Mass/volume ] in Serum or PlasmaOrdered By: Danial Gould on 07-22-2023 Bilirubin [Mass/Vol] 0.3 mg/dL Normal 0.3-1.0 [facility] Comment on above: Performed By: #### C PETEY, BMP #### [facility] [address] [place] [address] CT abdomen pelvis wo conon 0 07-22-2023 CT abdomen pelvis wo con [facility] [place] [address] CT Scan Report Signed Patient: Fede Guerra Sr MR#: [id number] : 1955 Acct:[id number] Age/Sex: 68 / M ADM Date: 07/22/23 Loc: ER Room: Type: [facility] ER Attending Dr: Copies to: Danial [...] Erika Pitts M.D.07/22/2023 7:49 PM Dictation Location: [place] [address] Transcribed By: [facility] 07/22/231948 Dictated By: Erika Pitts II, MD 07/22/231941 Signed By: 07/22/231948 Normal [facility] Calcium [Mass/volume] in Ser um or PlasmaOrdered By: Danial Gould on 07-22-2023 Calcium [Mass/Vol] 9.3 mg/dL Normal 8.6-10.3 [facility] Comment on above: Performed By: #### C BC, BMP #### [address] Carbon dioxide, total [Moles /volume] in Serum or PlasmaOrdered By: Danial Gould on 07-22-2023 CO2 [Moles/Vol] 24.7 mmol/L Normal 21.0-31.0 [facility] Comment on above: Performed By: #### C BC, BMP #### [address] Chloride [Moles/volume] in S jennifer or PlasmaOrdered By: Danial Gould on 07-22-2023 Chloride [Moles/Vol] 108 mmol/L High 98-107 [facility] Comment on above: Performed By: #### C BC, BMP #### [address] Complete Blood Count Auto Di ffon 07-22-2023 Mean Corpuscular HGB Conc 33.2 g/dL Normal 32.5-35.6 [facility] Comment on above: Performed By: #### C BC, BMP #### [place] [address] [place] Monocytes/100 WBC (Bld) 19.05 % Normal 0.00-20.00 [facility] Comment on above: Performed By: #### C BC, BMP #### [address] NRBC% 0.1 /100{WBC} Normal 0-0.5 [facility] Comment on above: Performed By: #### C BC, BMP #### [address] Comprehensive Metabolic Pane kimberly 07-22-2023 Albumin [Mass/Vol] 3.9 g/dL Normal 3.5-5.7 [facility] Comment on above: Performed By: #### C BC, BMP #### [place] [address] [place] Creatinine Clr Calc Pharmacy 84.39 Normal [facility] Comment on above: Performed By: #### C BC, BMP #### [facility] [address] [place] [address] [place] GFR/1.73 sq M.predicted MDRD (S/P/Bld) [Vol rate/Area] mL/min/{1.73_m2} Normal [facility] Comment on above: Performed By: #### C BC, BMP #### [address] Creatinine [Mass/volume] in Serum or PlasmaOrdered By: Danial Gould on 07-22-2023 Creatinine [Mass/Vol] 0.86 mg/dL Normal 0.70-1.30 [facility] Comment on above: Performed By: #### C BC, BMP #### [place] [address] [place] Dipstick and Microscopicon 0 07-22-2023 Amorphous Sediment,Urine Rare Normal [facility] Comment on above: Order Comment: Name Collection Type:: Hernandez Catheter Performed By: #### C BC, BMP #### [place] [address] [place] Appearance (U) Turbid Critically abnormal Clear [facility] Comment on above: Order Comment: Name Collection Type:: Hernandez Catheter Performed By: #### C BC, BMP #### [place] [address] [place] Bacteria,Urine 2+ High None Seen [facility] Comment on above: Order Comment: Name Collection Type:: Hernandez Catheter Performed By: #### C BC, BMP #### [place] [id number] [place] Bilirubin,Urine Negative Normal Negative [facility] Comment on above: Order Comment: Name Collection Type:: Hernandez Catheter Performed By: #### C BC, BMP #### [place] [id number] [place] Glucose Ql (U) Normal Normal Normal [facility] Comment on above: Order Comment: Name Collection Type:: Hernandez Catheter Performed By: #### C BC, BMP #### [place] [address] [place] Hyaline Casts,Urine 0-1 Normal 0-[address] [facility] Comment on above: Order Comment: Name Collection Type:: Hernandez Catheter Result Comment: PERF ORMED BY: [place] [address] PATHOLOGIST PROFESSIONAL TUTOR RENETTA MONACO M.D. Performed By: #### C BC, BMP #### [address] Ketones Ql (U) Negative Normal Negative [facility] Comment on above: Order Comment: Name Collection Type:: Hernandez Catheter Performed By: #### C BC, BMP #### [address] Leukocyte esterase Test strip Ql (U) 4+ High Negative [facility] Comment on above: Order Comment: Name Collection Type:: Hernandez Catheter Performed By: #### C BC, BMP #### [place] [address] [place] Nitrite,Urine Positive High Negative [facility] Comment on above: Order Comment: Name Collection Type:: Hernandez Catheter Performed By: #### C BC, BMP #### [place] [address] [place] Occult Blood,Urine 3+ High Negative [facility] Comment on above: Order Comment: Name Collection Type:: Hernandez Catheter Result Comment: PERF ORMED BY: [place] [address] PATHOLOGIST PROFESSIONAL TUTOR RENETTA MONACO M.D. Performed By: #### C BC, BMP #### [place] [address] [place] RBC,Urine Innumerable High 0-4 [facility] Comment on above: Order Comment: Name Collection Type:: Hernandez Catheter Performed By: #### C BC, BMP #### [place] [address] [place] Specificy [place],Urine 1.023 Normal 1.001-1.030 [facility] Comment on above: Order Comment: Name Collection Type:: Hernandez Catheter Performed By: #### C BC, BMP #### [facility] [address] Squamous Epithelial Cell,Urine 0-1 Normal 0-2 [facility] Comment on above: Order Comment: Name Collection Type:: Hernandez Catheter Performed By: #### C BC, BMP #### [facility] [address] Urobilinogen,Urine Normal Normal Normal [facility] Comment on above: Order Comment: Name Collection Type:: Hernandez Catheter Performed By: #### C BC, BMP #### [address] WBC,Urine Innumerable High 0-4 [facility] Comment on above: Order Comment: Name Collection Type:: Hernandez Catheter Performed By: #### C BC, BMP #### [address] ECG 12 lead ECGon 07-22-2023 ECG 12 lead ECG [facility] [place] [address] [place] [address] Electrocardiograph Report Signed Patient: Fede Guerra Sr MR#: [id number] : 1955 Acct:[id number] Age/Sex: 68 / M ADM Date: 07/22/23 Loc: ER Room: Type: [facility] ER Attending Dr: Ordering Provider: Danial Gould [...] Lateral leads Confirmed by DANIAL GOULD DO ([id number]) on 07/23/2023 1:23:31 AM Referred By: Electronically Signed By:DANIAL GOULD DO Transcribed By: MUS Signed By Danial Gould DO 07/22 0123 Normal [facility] Erythrocyte distribution wid th [Ratio] by Automated countOrdered By: Danial Gould on 07-22-2023 Erythrocyte distribution width (RBC) [Ratio] 14.7 % Normal 12.0-14.8 [facility] Comment on above: Performed By: #### C PETEY, BMP #### [facility] [address] Erythrocytes [#/volume] in B lood by Automated countOrdered By: Danial Gould on 07-22-2023 RBC (Bld) [#/Vol] 4.55 10*6/uL Normal 3.90-5.60 [facility] Comment on above: Performed By: #### C PETEY, BMP #### [facility] [address] [place] [id number] [facility] Glucose [Mass/volume] in Ser um or PlasmaOrdered By: Danial Gould on 07-22-2023 Glucose [Mass/Vol] 125 mg/dL High 70-100 [facility] Comment on above: ADA recommended refe rence rangeRandom Glucose Reference Range is dependent on time and content of last meal. Glucose of more than 200 mg/dL in a nonstressed, ambulatory subject supports the diagnosis of Diabetes Mellitus. Result Comment: [place] om Glucose Reference Range is dependent on time and content of last meal. Glucose of more than 200 mg/dL in a nonstressed, ambulatory subject supports the diagnosis of Diabetes Mellitus. ADA recommended reference range Performed By: #### C PETEY, BMP #### [facility] [address] [place] [id number] [place] Hematocrit [Volume Fraction] of Blood by Automated countOrdered By: Danial Gould on 07-22-2023 Hematocrit (Bld) [Volume fraction] 38.9 % Normal 38.8-50.0 [facility] Comment on above: Performed By: #### C PETEY, BMP #### [facility] [address] [place] [id number] [place] Hemoglobin [Mass/volume] in BloodOrdered By: Danial Gould on 07-22-2023 Hemoglobin (Bld) [Mass/Vol] 12.9 g/dL Low 13.0-17.0 [facility] Comment on above: Performed By: #### C PETEY, BMP #### [facility] [address] [place] [address] Ketones Auto test strip (U) [Mass/Vol]Ordered By: Danial Gould on 07-22-2023 Ketones (U) [Mass/Vol] Negative Negative [facility] - UrinalysisOrder ed By: Danial Gould on 07-22-2023 Hyaline casts LM Ql (Urine sed) 0-1 [LPF] 0-8 [facility] Leukocytes [#/volume] correc mayte for nucleated erythrocytes in Blood by Automated counOrdered By: Danial Gould on 07-22-2023 WBC corrected for nucl RBC Auto (Bld) [#/Vol] 4.1 10*3/uL 4.1-10.5 [facility] Leukocytes [#/volume] in Blo od by Automated countOrdered By: Danial Gould on 07-22-2023 WBC (Bld) [#/Vol] 4.1 10*3/uL Normal 4.1-10.5 [facility] Comment on above: Performed By: #### C PETEY, BMP #### [address] Lipase [Enzymatic activity/v olume] in Serum or PlasmaOrdered By: Danial Gould on 07-22-2023 Lipase [Catalytic activity/Vol] 24.0 U/L Normal 11.0-82.0 [facility] Comment on above: Result Comment: PERF ORMED BY: [place] [address] PATHOLOGIST PROFESSIONAL TUTOR RENETTA MONACO M.D. Performed By: #### C PETEY, BMP #### [address] Lymphocytes [#/volume] in Bl ood by Automated countOrdered By: Danial Gould on 07-22-2023 Lymphocytes (Bld) [#/Vol] 1.5 10*3/uL Normal 1.00-4.8 [facility] Comment on above: Performed By: #### C BC, BMP #### [address] Lymphocytes/100 leukocytes i n Blood by Automated countOrdered By: Danial Gould on 07-22-2023 Lymphocytes/100 WBC (Bld) 37.7 % Normal . [facility] Comment on above: Performed By: #### C BC, BMP #### [address] MCH [Entitic mass] by Automa mayte countOrdered By: Danial Gould on 07-22-2023 MCH (RBC) [Entitic mass] 28.4 pg Normal 27.5-35.2 [facility] Comment on above: Performed By: #### C BC, BMP #### [address] MCHC Auto (RBC) [Mass/Vol]Or dered By: Danial Gould on 07-22-2023 MCHC (RBC) [Mass/Vol] 33.2 g/dL 32.5-35.6 [facility] MCV [Entitic volume] by Auto mated countOrdered By: Danial Gould on 07-22-2023 MCV (RBC) [Entitic vol] 85.4 fL Normal 83.5-101 [facility] Comment on above: Performed By: #### C PETEY, BMP #### [address] Monocyte distribution width [Entitic volume] in Blood by AutomatedOrdered By: Danial Gould on 07-22-2023 Monocyte distribution width Auto (Bld) [Entitic vol] 19.05 % 0.00-20.00 [facility] Neutrophils [#/volume] in Bl ood by Automated countOrdered By: Danial Gould on 07-22-2023 Neutrophils (Bld) [#/Vol] 1.8 10*3/uL Normal 1.8-7.7 [facility] Comment on above: Performed By: #### C BC, BMP #### [address] Nitrite Test strip Ql (U)Ord ered By: Danial Gould on 07-22-2023 Nitrite Ql (U) Positive Negative [facility] No Panel InformationOrdered By: Danial Gould on 07-22-2023 Estimated GFR (CKD-EPI) > 60.0 mL/Min [facility] Creatinine Clearance (Chem 84.39 [facility] Nucleated erythrocytes [Pres ence] in Blood by Automated countOrdered By: Danial Gould on 07-22-2023 Nucleated RBC Auto Ql (Bld) 0.1 /100{WBC} 0-0.5 [facility] Platelet mean volume [Entiti c volume] in Blood by Automated countOrdered By: Danial Gould on 07-22-2023 Platelet mean volume (Bld) [Entitic vol] 8.0 fL Normal 6.6-10.1 [facility] Comment on above: Performed By: #### C BC, BMP #### [facility] [address] [place] [address] [place] Platelets [#/volume] in Bloo d by Automated countOrdered By: Danial Gould on 07-22-2023 Platelets (Bld) [#/Vol] 214 10*3/uL Normal 150-450 [facility] Comment on above: Performed By: #### C BC, BMP #### [facility] [address] [place] [address] [place] Potassium [Moles/volume] in Serum or PlasmaOrdered By: Danial Gould on 07-22-2023 Potassium [Moles/Vol] 4.3 mmol/L Normal 3.5-5.1 [facility] Comment on above: Performed By: #### C BC, BMP #### [facility] [address] [place] [address] [place] Protein [Mass/volume] in Ser um or PlasmaOrdered By: Danial Gould on 07-22-2023 Protein [Mass/Vol] 7.0 g/dL Normal 6.4-8.9 [facility] Comment on above: Performed By: #### C BC, BMP #### [facility] [address] [place] [address] [place] Serum globulin measurement b y calculation (mass/volume)Ordered By: Danial Gould on 07-22-2023 Globulin (S) [Mass/Vol] 3.1 g/dL Normal [facility] Comment on above: Performed By: #### C PETEY, BMP #### [address] Serum or plasma albumin/glob ulin mass ratioOrdered By: Danial Gould on 07-22-2023 Albumin/Globulin [Mass ratio] 1.3 {ratio} Normal [facility] Comment on above: Performed By: #### C PETEY, BMP #### [address] Serum or plasma anion gap de terminationOrdered By: Danial Gould on 07-22-2023 Anion gap [Moles/Vol] 10.6 mmol/L Normal 6.0-15.0 [facility] Comment on above: Performed By: #### C PETEY, BMP #### [address] Sodium [Moles/volume] in Ser um or PlasmaOrdered By: Danial Gould on 07-22-2023 Sodium [Moles/Vol] 139 mmol/L Normal 136-145 [facility] Comment on above: Performed By: #### C PETEY, BMP #### [address] Specific gravity Auto test s trip (U) [Rel density]Ordered By: Danial Gould on 07-22-2023 Specific gravity (U) [Rel density] 1.023 1.001-1.030 [facility] Squamous epithelial cells de tection in urine sediment by light microscopyOrdered By: Danial Gould on 07-22-2023 Epithelial cells.squamous LM Ql (Urine sed) 0-1 [HPF] 0-2 [facility] Urea nitrogen [Mass/volume] in Serum or PlasmaOrdered By: Danial Gould on 07-22-2023 Urea nitrogen [Mass/Vol] 22 mg/dL Normal 7-25 [facility] Comment on above: Performed By: #### C PETEY, BMP #### [address] Urine Cultureon 07-22-2023 Bacteria identified Cx Nom (U) ORGANISM: Klebsiella pneumoniae (ESBL) (O:KLEPNEESBL) [place] Count >100,000 Aerobic SCOTT Charge (NMIC56) ----- [...] RESISTANT TO ALL B-LACTAM DRUGS. PERFORMED BY: [place] [address] PATHOLOGIST PROFESSIONAL TUTOR RENETTA MONACO M.D. Normal [facility] Comment on above: Performed By: #### C BC, BMP #### [address] Urine bacteria detection by automated methodOrdered By: Danial Gould on 07-22-2023 Bacteria Auto Ql (U) 2+ None Seen [facility] Urine clarity by refractomet ry automatedOrdered By: Danial Gould on 07-22-2023 Clarity Refractometry automated (U) Turbid Clear [facility] Urine glucose measurement by automated test strip (mass/volume)Ordered By: Danial Gould on 07-22-2023 Glucose Auto test strip (U) [Mass/Vol] Normal mg/dL Normal [facility] Urine hemoglobin detection b y automated test stripOrdered By: Danial Gould on 07-22-2023 Hemoglobin Auto test strip Ql (U) 3+ Negative [facility] Urine leukocyte esterase det ection by automated test stripOrdered By: Danial Gould on 07-22-2023 Leukocyte esterase Auto test strip Ql (U) 4+ Negative [facility] Urine pH measurement by auto mated test stripOrdered By: Danial Gould on 07-22-2023 pH (U) 7.0 [pH] Normal 5.0-9.0 [facility] Comment on above: Order Comment: Name Collection Type:: Hernandez Catheter Performed By: #### C BC, BMP #### [address] Urine protein measurement by automated test strip (mass/volume)Ordered By: Danial Gould on 07-22-2023 Protein (U) [Mass/Vol] 100 mg/dL High Negative [facility] Comment on above: Order Comment: Name Collection Type:: Hernandez Catheter Performed By: #### C BC, BMP #### [address] Urobilinogen Auto test strip (U) [Mass/Vol]Ordered By: Danial Gould on 07-22-2023 Urobilinogen (U) [Mass/Vol] Normal mg/dL Normal [facility] Automated basophil %Ordered By: Kary Boone on 04-22-2023 Basophils/100 WBC (Bld) 1.0 % Normal . [facility] Comment on above: Performed By: #### C BC, BMP #### [address] Automated basophil countOrde red By: Kary Boone on 04-22-2023 Basophils (Bld) [#/Vol] 0.1 10*3/uL Normal 0.0-0.2 [facility] Comment on above: Result Comment: PERF ORMED BY: [place] [address] PATHOLOGIST PROFESSIONAL TUTOR RENETTA MONACO M.D. Performed By: #### C BC, BMP #### [address] Automated blood monocyte cou ntOrdered By: Kary Shahabnicolasa on 04-22-2023 Monocytes (Bld) [#/Vol] 0.7 10*3/uL Normal 0.0-0.8 [facility] Comment on above: Performed By: #### C BC, BMP #### [address] Automated eosinophil %Ordere d By: Kary Shahabnicolasa on 04-22-2023 Eosinophils/100 WBC (Bld) 7.0 % Normal . [facility] Comment on above: Performed By: #### C BC, BMP #### [address] Automated eosinophil countOr dered By: Kary Shahabnicolasa on 04-22-2023 Eosinophils (Bld) [#/Vol] 0.4 10*3/uL Normal 0.0-0.45 [facility] Comment on above: Performed By: #### C BC, BMP #### [address] Automated monocyte %Ordered By: Kary Shahabnicolasa on 04-22-2023 Monocytes/100 WBC (Bld) 13.3 % Normal . [facility] Comment on above: Performed By: #### C BC, BMP #### [address] Automated neutrophil %Ordere d By: Kary Shahabnicolasa on 04-22-2023 Neutrophils/100 WBC (Bld) 45.2 % Normal . [facility] Comment on above: Performed By: #### C BC, BMP #### [address] Basic Metabolic Panelon 03-29 Creatinine Clr Calc Pharmacy 87.50 Normal [facility] Comment on above: Result Comment: PERF ORMED BY: [place] [address] PATHOLOGIST PROFESSIONAL TUTOR RENETTA MONACO M.D. Performed By: #### C BC, BMP #### [address] GFR/1.73 sq M.predicted MDRD (S/P/Bld) [Vol rate/Area] mL/min/{1.73_m2} Normal [facility] Comment on above: Performed By: #### C BC, BMP #### [address] Blood Cultureon 04-22-2023 Bacteria identified Cx Nom (Bld) NO GROWTH 5 DAYS PERFORMED BY: [place] [address] PATHOLOGIST PROFESSIONAL TUTOR RENETTA MONACO M.D. Normal [facility] Comment on above: Performed By: #### C BC, BMP #### [address] Bacteria identified Cx Nom (Bld) NO GROWTH 5 DAYS PERFORMED BY: [place] [address] PATHOLOGIST PROFESSIONAL TUTOR RENETTA MONACO M.D. Normal [facility] Comment on above: Performed By: #### C BC, BMP #### [address] Calcium [Mass/volume] in Ser um or PlasmaOrdered By: Kary Boone on 04-22-2023 Calcium [Mass/Vol] 9.5 mg/dL Normal 8.6-10.3 [facility] Comment on above: Performed By: #### C BC, BMP #### [address] Carbon dioxide, total [Moles /volume] in Serum or PlasmaOrdered By: Kary Boone on 04-22-2023 CO2 [Moles/Vol] 26.9 mmol/L Normal 21.0-31.0 [facility] Comment on above: Performed By: #### C BC, BMP #### [address] Chloride [Moles/volume] in S jennifer or PlasmaOrdered By: Kary Boone on 04-22-2023 Chloride [Moles/Vol] 106 mmol/L Normal 98-107 [facility] Comment on above: Performed By: #### C BC, BMP #### [address] Complete Blood Count Auto Di ffon 04-22-2023 Mean Corpuscular HGB Conc 33.0 g/dL Normal 32.5-35.6 [facility] Comment on above: Performed By: #### C BC, BMP #### [address] Monocytes/100 WBC (Bld) 18.01 % Normal 0.00-20.00 [facility] Comment on above: Performed By: #### C BC, BMP #### [address] NRBC% 0.2 /100{WBC} Normal 0-0.5 [facility] Comment on above: Performed By: #### C BC, BMP #### [address] Creatinine [Mass/volume] in Serum or PlasmaOrdered By: Kary Boone on 04-22-2023 Creatinine [Mass/Vol] 0.66 mg/dL Low 0.70-1.30 [facility] Comment on above: Performed By: #### C BC, BMP #### [address] Erythrocyte distribution wid th [Ratio] by Automated countOrdered By: Kary Boone on 04-22-2023 Erythrocyte distribution width (RBC) [Ratio] 14.8 % Normal 12.0-14.8 [facility] Comment on above: Performed By: #### C BC, BMP #### [place] [address] [place] Erythrocytes [#/volume] in B lood by Automated countOrdered By: Kary Boone on 04-22-2023 RBC (Bld) [#/Vol] 4.26 10*6/uL Normal 3.90-5.60 [facility] Comment on above: Performed By: #### C PETEY, BMP #### [facility] [address] Glucose [Mass/volume] in Ser um or PlasmaOrdered By: Kary Boone on 04-22-2023 Glucose [Mass/Vol] 115 mg/dL High 70-100 [facility] Comment on above: ADA recommended refe rence rangeRandom Glucose Reference Range is dependent on time and content of last meal. Glucose of more than 200 mg/dL in a nonstressed, ambulatory subject supports the diagnosis of Diabetes Mellitus. Result Comment: [place] om Glucose Reference Range is dependent on time and content of last meal. Glucose of more than 200 mg/dL in a nonstressed, ambulatory subject supports the diagnosis of Diabetes Mellitus. ADA recommended reference range Performed By: #### C PETEY, BMP #### [facility] [address] Hematocrit [Volume Fraction] of Blood by Automated countOrdered By: Kary Boone on 04-22-2023 Hematocrit (Bld) [Volume fraction] 36.0 % Low 38.8-50.0 [facility] Comment on above: Performed By: #### C PETEY, BMP #### [facility] [address] [place] [address] [place] Hemoglobin [Mass/volume] in BloodOrdered By: Kary Boone on 04-22-2023 Hemoglobin (Bld) [Mass/Vol] 11.9 g/dL Low 13.0-17.0 [facility] Comment on above: Performed By: #### C PETEY, BMP #### [address] Leukocytes [#/volume] correc mayte for nucleated erythrocytes in Blood by Automated counOrdered By: Kary Boone on 04-22-2023 WBC corrected for nucl RBC Auto (Bld) [#/Vol] 5.7 10*3/uL 4.1-10.5 [facility] Leukocytes [#/volume] in Blo od by Automated countOrdered By: Kary Boone on 04-22-2023 WBC (Bld) [#/Vol] 5.7 10*3/uL Normal 4.1-10.5 [facility] Comment on above: Performed By: #### C BC, BMP #### [facility] [address] [place] [address] [place] Lymphocytes [#/volume] in Bl ood by Automated countOrdered By: Kary Boone on 04-22-2023 Lymphocytes (Bld) [#/Vol] 1.9 10*3/uL Normal 1.00-4.8 [facility] Comment on above: Performed By: #### C BC, BMP #### [address] Lymphocytes/100 leukocytes i n Blood by Automated countOrdered By: Kary Boone on 04-22-2023 Lymphocytes/100 WBC (Bld) 33.5 % Normal . [facility] Comment on above: Performed By: #### C BC, BMP #### [place] [address] [place] MCH [Entitic mass] by Automa mayte countOrdered By: Kary Boone on 04-22-2023 MCH (RBC) [Entitic mass] 27.9 pg Normal 27.5-35.2 [facility] Comment on above: Performed By: #### C BC, BMP #### [address] MCHC Auto (RBC) [Mass/Vol]Or dered By: Kary Boone on 04-22-2023 MCHC (RBC) [Mass/Vol] 33.0 g/dL 32.5-35.6 [facility] MCV [Entitic volume] by Auto mated countOrdered By: Kary Boone on 04-22-2023 MCV (RBC) [Entitic vol] 84.7 fL Normal 83.5-101 [facility] Comment on above: Performed By: #### C BC, BMP #### [facility] [address] [place] [address] Monocyte distribution width [Entitic volume] in Blood by AutomatedOrdered By: Kary Boone on 04-22-2023 Monocyte distribution width Auto (Bld) [Entitic vol] 18.01 % 0.00-20.00 [facility] Neutrophils [#/volume] in Bl ood by Automated countOrdered By: Kary Boone on 04-22-2023 Neutrophils (Bld) [#/Vol] 2.6 10*3/uL Normal 1.8-7.7 [facility] Comment on above: Performed By: #### C PETEY, BMP #### [address] No Panel InformationOrdered By: Kary Boone on 04-22-2023 Estimated GFR (CKD-EPI) > 60.0 mL/Min [facility] Creatinine Clearance (Chem 87.50 [facility] Nucleated erythrocytes [Pres ence] in Blood by Automated countOrdered By: Kary Boone on 04-22-2023 Nucleated RBC Auto Ql (Bld) 0.2 /100{WBC} 0-0.5 [facility] Platelet mean volume [Entiti c volume] in Blood by Automated countOrdered By: Kary Boone on 04-22-2023 Platelet mean volume (Bld) [Entitic vol] 8.2 fL Normal 6.6-10.1 [facility] Comment on above: Performed By: #### C PETEY, BMP #### [facility] [address] [place] [address] [place] Platelets [#/volume] in Bloo d by Automated countOrdered By: Kary Boone on 04-22-2023 Platelets (Bld) [#/Vol] 241 10*3/uL Normal 150-450 [facility] Comment on above: Performed By: #### C PETEY, BMP #### [place] [address] [place] Potassium [Moles/volume] in Serum or PlasmaOrdered By: Kary Boone on 04-22-2023 Potassium [Moles/Vol] 4.1 mmol/L Normal 3.5-5.1 [facility] Comment on above: Performed By: #### C BC, BMP #### [address] Serum or plasma anion gap de terminationOrdered By: Kary Boone on 04-22-2023 Anion gap [Moles/Vol] 10.2 mmol/L Normal 6.0-15.0 [facility] Comment on above: Performed By: #### C BC, BMP #### [address] Sodium [Moles/volume] in Ser um or PlasmaOrdered By: Kary Boone on 04-22-2023 Sodium [Moles/Vol] 139 mmol/L Normal 136-145 [facility] Comment on above: Performed By: #### C BC, BMP #### [address] Superficial Wound Cultureon 04-22-2023 Superficial Wound Culture Light Normal Skin [place] 2 Days PERFORMED BY: [place] [address] PATHOLOGIST PROFESSIONAL TUTOR RENETTA MONACO M.D. Normal [facility] Comment on above: Performed By: #### C USUP #### [address] Superficial Wound Culture ORGANISM: Acineto. crystal/nosocom [...] RESISTANT TO ALL B-LACTAM DRUGS. PERFORMED BY: [place] [address] [address] [place] [address] PATHOLOGIST PROFESSIONAL TUTOR RENETTA MONACO M.D. Normal [facility] Comment on above: Performed By: #### C UU, ADDONUAPLUS #### [facility] [address] [place] [address] Urea nitrogen [Mass/volume] in Serum or PlasmaOrdered By: Kary Boone on 04-22-2023 Urea nitrogen [Mass/Vol] 14 mg/dL Normal 7-25 [facility] Comment on above: Performed By: #### C BC, BMP #### [facility] [address] [place] [address] XR hip RT min 2V(w/wo pelvis )*on 04-22-2023 XR hip RT min 2V(w/wo pelvis)* [facility] [place] [address] [place] [address] XRay Report Signed Patient: Fede Guerra Sr MR#: [id number] : 1955 Acct:[id number] Age/Sex: 68 / M ADM Date: 04/22/23 Loc: ER Room: Type: [facility] ER Attending Dr: Copies to: Kary Boone APRN Ordering Provider: Kary [...] Erika Pitts M.D.04/22/2023 6:39 PM Dictation Location: [place] [address] Transcribed By: [facility] 04/22/231838 Dictated By: Erika Pitts II, MD 04/22/231835 Signed By: 04/22/231838 Normal [facility] ECG 12 lead ECGon 04-19-2023 ECG 12 lead ECG [facility] [place] [address] [place] [id number] Electrocardiograph Report Signed Patient: Fede Guerra Sr MR#: [id number] : 1955 Acct:[id number] Age/Sex: 68 / M ADM Date: 04/15/23 Loc: Room: [address] [place] [address] Type: ADM IN Attending Dr: Kip Hunt [...] Ruelas MD 0 04/19/23 1642 Normal [facility] Dipstick and Microscopicon 0 04-15-2023 Appearance (U) Turbid Critically abnormal Clear [facility] Comment on above: Order Comment: Name Collection Type:: Hernandez Catheter Performed By: #### C UChelle ADDONUAPLUS #### [facility] [address] [place] [address] [place] Bacteria,Urine 4+ High None Seen [facility] Comment on above: Order Comment: Name Collection Type:: Hernandez Catheter Performed By: #### C UChelle ADDONUAPLUS #### [place] [address] [place] Bilirubin,Urine Negative Normal Negative [facility] Comment on above: Order Comment: Name Collection Type:: Hernandez Catheter Performed By: #### C UU, ADDONUAPLUS #### [address] Color (U) Yellow Normal Yellow [facility] Comment on above: Order Comment: Name Collection Type:: Hernandez Catheter Performed By: #### C UU, ADDONUAPLUS #### [address] Glucose Ql (U) Normal Normal Normal [facility] Comment on above: Order Comment: Name Collection Type:: Hernandez Catheter Performed By: #### C UU, ADDONUAPLUS #### [place] [address] [place] Hyaline Casts,Urine 0-8 Normal 0-8 [facility] Comment on above: Order Comment: Name Collection Type:: Hernandez Catheter Performed By: #### C UU, ADDONUAPLUS #### [address] Ketones Ql (U) Negative Normal Negative [facility] Comment on above: Order Comment: Name Collection Type:: Hernandez Catheter Performed By: #### C UU, ADDONUAPLUS #### [address] Leukocyte esterase Test strip Ql (U) 4+ High Negative [facility] Comment on above: Order Comment: Name Collection Type:: Hernandez Catheter Performed By: #### C UU, ADDONUAPLUS #### [place] [address] [place] Nitrite,Urine Positive High Negative [facility] Comment on above: Order Comment: Name Collection Type:: Hernandez Catheter Performed By: #### C UU, ADDONUAPLUS #### [place] [address] [place] Occult Blood,Urine Trace High Negative The [facility] Comment on above: Order Comment: Name Collection Type:: Hernandez Catheter Result Comment: PERF ORMED BY: [place] [address] PATHOLOGIST PROFESSIONAL TUTOR RENETTA MONACO M.D. Performed By: #### C UU, ADDONUAPLUS #### [address] pH (U) 8.0 [pH] Normal 5.0-9.0 [facility] Comment on above: Order Comment: Name Collection Type:: Hernandez Catheter Performed By: #### C UU, ADDONUAPLUS #### [address] Protein (U) [Mass/Vol] 30 mg/dL High Negative Th e [facility] Comment on above: Order Comment: Name Collection Type:: Hernandez Catheter Performed By: #### C UU, ADDONUAPLUS #### [address] RBC,Urine 5-9 High 0-4 [facility] Comment on above: Order Comment: Name Collection Type:: Hernandez Catheter Performed By: #### C UU, ADDONUAPLUS #### [address] Specificy [place],Urine 1.018 Normal 1.001-1.030 [facility] Comment on above: Order Comment: Name Collection Type:: Hernandez Catheter Performed By: #### C UU, ADDONUAPLUS #### [address] Squamous Epithelial Cell,Urine 0-1 Normal 0-2 [facility] Comment on above: Order Comment: Name Collection Type:: Hernandez Catheter Performed By: #### C UU, ADDONUAPLUS #### [address] Urobilinogen,Urine Normal Normal Normal [facility] Comment on above: Order Comment: Name Collection Type:: Hernandez Catheter Performed By: #### C UU, ADDONUAPLUS #### [address] WBC,Urine Innumerable High 0-4 [facility] Comment on above: Order Comment: Name Collection Type:: Hernandez Catheter Performed By: #### C UU, ADDONUAPLUS #### [address] Yeast,Urine None Seen Normal None Seen [facility] Comment on above: Order Comment: Name Collection Type:: Hernandez Catheter Result Comment: PERF ORMED BY: [place] [address] PATHOLOGIST PROFESSIONAL TUTOR RENETTA MONACO M.D. Performed By: #### C UU, ADDONUAPLUS #### [address] Urine Cultureon 04-15-2023 Bacteria identified Cx Nom (U) ORGANISM: Klebsiella pneumoniae (ESBL) (O:KLEPNEESBL) [place] Count >100,000 Aerobic SCOTT Charge (NMIC56) ----- [...] RESISTANT TO ALL B-LACTAM DRUGS. PERFORMED BY: [place] [address] PATHOLOGIST PROFESSIONAL TUTOR RENETTA MONACO M.D. Normal [facility] Comment on above: Performed By: #### C UU, ADDONUAPLUS #### [address] Basic Metabolic Panelon 02-26 Creatinine Clr Calc Pharmacy 55.23 Normal [facility] Comment on above: Result Comment: PERF ORMED BY: [place] [address] PATHOLOGIST PROFESSIONAL TUTOR RENETTA MONACO M.D. Performed By: #### C BC, BMP #### [address] GFR/1.73 sq M.predicted MDRD (S/P/Bld) [Vol rate/Area] mL/min/{1.73_m2} Normal [facility] Comment on above: Performed By: #### C BC, BMP #### [address] Calcium [Mass/volume] in Ser um or PlasmaOrdered By: Zeinab Poole on 03-20-2023 Calcium [Mass/Vol] 8.2 mg/dL Low 8.6-10.3 [facility] Comment on above: Performed By: #### C BC, BMP #### [place] [address] [place] Carbon dioxide, total [Moles /volume] in Serum or PlasmaOrdered By: Zeinab Poole on 03-20-2023 CO2 [Moles/Vol] 25.6 mmol/L Normal 21.0-31.0 [facility] Comment on above: Performed By: #### C BC, BMP #### [place] [address] [place] Chloride [Moles/volume] in S jennifer or PlasmaOrdered By: Zeinab Poole on 03-20-2023 Chloride [Moles/Vol] 109 mmol/L High 98-107 [facility] Comment on above: Performed By: #### C BC, BMP #### [facility] [address] Creatinine [Mass/volume] in Serum or PlasmaOrdered By: Zeinab Poole on 03-20-2023 Creatinine [Mass/Vol] 1.28 mg/dL Normal 0.70-1.30 [facility] Comment on above: Performed By: #### C BC, BMP #### [facility] [address] Glucose [Mass/volume] in Ser um or PlasmaOrdered By: Zeinab Poole on 03-20-2023 Glucose [Mass/Vol] 97 mg/dL Normal 70-100 [facility] Comment on above: ADA recommended refe rence rangeRandom Glucose Reference Range is dependent on time and content of last meal. Glucose of more than 200 mg/dL in a nonstressed, ambulatory subject supports the diagnosis of Diabetes Mellitus. Result Comment: [place] om Glucose Reference Range is dependent on time and content of last meal. Glucose of more than 200 mg/dL in a nonstressed, ambulatory subject supports the diagnosis of Diabetes Mellitus. ADA recommended reference range Performed By: #### C BC, BMP #### [facility] [address] No Panel InformationOrdered By: Zeinab Poole on 03-20-2023 Estimated GFR (CKD-EPI) > 60.0 mL/Min [facility] Creatinine Clearance (Chem 55.23 [facility] Potassium [Moles/volume] in Serum or PlasmaOrdered By: Zeinab Poole on 03-20-2023 Potassium [Moles/Vol] 3.9 mmol/L Normal 3.5-5.1 [facility] Comment on above: Performed By: #### C BC, BMP #### [facility] [address] Serum or plasma anion gap de terminationOrdered By: Zeinab Poole on 03-20-2023 Anion gap [Moles/Vol] 7.3 mmol/L Normal 6.0-15.0 [facility] Comment on above: Performed By: #### C BC, BMP #### [facility] [address] [place] [address] [place] Sodium [Moles/volume] in Ser um or PlasmaOrdered By: Zeinab Poole on 03-20-2023 Sodium [Moles/Vol] 138 mmol/L Normal 136-145 [facility] Comment on above: Performed By: #### C BC, BMP #### [place] [address] [place] Urea nitrogen [Mass/volume] in Serum or PlasmaOrdered By: Zeinab Poole on 03-20-2023 Urea nitrogen [Mass/Vol] 29 mg/dL High 7-25 [facility] Comment on above: Performed By: #### C BC, BMP #### [place] [address] [place] Anisocytosis [Presence] in B lood by Light microscopyOrdered By: Zeinab Poole on 03-19-2023 Anisocytosis Ql (Bld) Slight Normal [facility] Comment on above: Performed By: #### C BC, BMP #### [address] Basic Metabolic Panelon 122 Anion gap [Moles/Vol] 9.4 mmol/L Normal 6.0-15.0 [facility] Comment on above: Performed By: #### C BC, BMP #### [address] Calcium [Mass/Vol] 8.3 mg/dL Low 8.6-10.3 [facility] Comment on above: Performed By: #### C BC, BMP #### [place] [address] [place] Chloride [Moles/Vol] 112 mmol/L High 98-107 [facility] Comment on above: Performed By: #### C BC, BMP #### [address] CO2 [Moles/Vol] 23.6 mmol/L Normal 21.0-31.0 [facility] Comment on above: Performed By: #### C BC, BMP #### [address] Creatinine [Mass/Vol] 1.48 mg/dL High 0.70-1.30 [facility] Comment on above: Performed By: #### C BC, BMP #### [place] [address] [place] Creatinine Clr Calc Pharmacy 47.77 Normal [facility] Comment on above: Result Comment: PERF ORMED BY: [place] [address] PATHOLOGIST PROFESSIONAL TUTOR RENETTA MONACO M.D. Performed By: #### C BC, BMP #### [address] GFR/1.73 sq M.predicted MDRD (S/P/Bld) [Vol rate/Area] 51.215 mL/min/{1.73_m2} Normal [facility] Comment on above: Performed By: #### C BC, BMP #### [address] Glucose [Mass/Vol] 84 mg/dL Normal 70-100 [facility] Comment on above: Result Comment: [place] Glucose Reference Range is dependent on time and content of last meal. Glucose of more than 200 mg/dL in a nonstressed, ambulatory subject supports the diagnosis of Diabetes Mellitus. ADA recommended reference range Performed By: #### C BC, BMP #### [place] [address] [place] Potassium [Moles/Vol] 4.0 mmol/L Normal 3.5-5.1 [facility] Comment on above: Performed By: #### C BC, BMP #### [place] [address] [place] Sodium [Moles/Vol] 141 mmol/L Normal 136-145 [facility] Comment on above: Performed By: #### C BC, BMP #### [address] Urea nitrogen [Mass/Vol] 37 mg/dL High 7-25 [facility] Comment on above: Performed By: #### C BC, BMP #### [address] Basophils Auto (Bld) [#/Vol] Ordered By: Zeinab Poole on 03-19-2023 Basophils (Bld) [#/Vol] N/A [facility] Basophils/100 WBC Auto (Bld) Ordered By: Zeinab Poole on 03-19-2023 Basophils/100 WBC (Bld) N/A [facility] [place] cells [Presence] in Blo od by Light microscopyOrdered By: Zeinab Poole on 03-19-2023 Ney cells LM Ql (Bld) Slight [facility] Diff and CBCon 03-19-2023 Crenated RBC Slight Normal [facility] Comment on above: Performed By: #### C BC, BMP #### [address] Giant Platelet Tally 1 /100{WBC} Normal [facility] Comment on above: Performed By: #### C BC, BMP #### [address] Large Platelets Slight Normal [facility] Comment on above: Result Comment: PERF ORMED BY: [place] [address] PATHOLOGIST PROFESSIONAL TUTOR RENETTA MONACO M.D. Performed By: #### C BC, BMP #### [address] Macrocytosis Slight Normal [facility] Comment on above: Performed By: #### C BC, BMP #### [address] Mean Corpuscular HGB Conc 33.4 g/dL Normal 32.5-35.6 [facility] Comment on above: Performed By: #### C BC, BMP #### [facility] [address] Microcytosis Slight Normal [facility] Comment on above: Performed By: #### C BC, BMP #### [facility] [address] Ovalocytes Slight Normal [facility] Comment on above: Performed By: #### C BC, BMP #### [facility] [address] Platelet Estimate Decreased Normal Normal [facility] Comment on above: Performed By: #### C BC, BMP #### [facility] [address] Platelet Morphology Normal Normal Normal The [facility] Comment on above: Performed By: #### C BC, BMP #### [address] Poikilocytosis Slight Normal [facility] Comment on above: Performed By: #### C BC, BMP #### [address] Target Cells Slight Normal [facility] Comment on above: Performed By: #### C BC, BMP #### [place] [address] [place] Eosinophils Auto (Bld) [#/Vo l]Ordered By: Zeinab Poole on 03-19-2023 Eosinophils (Bld) [#/Vol] N/A [facility] Eosinophils/100 WBC Auto (Bl d)Ordered By: Zeinab Poole on 03-19-2023 Eosinophils/100 WBC (Bld) N/A [facility] Eosinophils/100 leukocytes i n Blood by Manual countOrdered By: Zeinab Poole on 03-19-2023 Eosinophils/100 WBC (Bld) 3 % Normal 1-3 [facility] Comment on above: Performed By: #### C BC, BMP #### [facility] [address] [place] [address] [place] Erythrocyte distribution wid th [Ratio] by Automated countOrdered By: Zeinab Poole on 03-19-2023 Erythrocyte distribution width (RBC) [Ratio] 15.5 % High 12.0-14.8 [facility] Comment on above: Performed By: #### C PETEY, BMP #### [address] Erythrocytes [#/volume] in B lood by Automated countOrdered By: Zeinab Poole on 03-19-2023 RBC (Bld) [#/Vol] 3.71 10*6/uL Low 3.90-5.60 [facility] Comment on above: Performed By: #### C PETEY, BMP #### [place] [address] [place] Giant platelets/100 leukocyt es [Ratio] in Blood by Manual countOrdered By: Zeinab Poole on 03-19-2023 Giant platelets/100 WBC Manual cnt (Bld) [Ratio] 1 /100{WBC} [facility] Hematocrit [Volume Fraction] of Blood by Automated countOrdered By: Zeinab Poole on 03-19-2023 Hematocrit (Bld) [Volume fraction] 31.0 % Low 38.8-50.0 [facility] Comment on above: Performed By: #### C PETEY, BMP #### [address] Hemoglobin [Mass/volume] in BloodOrdered By: Zeinab Poole on 03-19-2023 Hemoglobin (Bld) [Mass/Vol] 10.4 g/dL Low 13.0-17.0 [facility] Comment on above: Performed By: #### C PETEY, BMP #### [address] Leukocytes [#/volume] correc mayte for nucleated erythrocytes in Blood by Automated counOrdered By: Zeinab Poole on 03-19-2023 WBC corrected for nucl RBC Auto (Bld) [#/Vol] 9.4 10*3/uL 4.1-10.5 [facility] Leukocytes [#/volume] in Blo od by Automated countOrdered By: Zeinab Poole on 03-19-2023 WBC (Bld) [#/Vol] 9.4 10*3/uL Normal 4.1-10.5 [facility] Comment on above: Performed By: #### C BC, BMP #### [address] Lymphocytes Auto (Bld) [#/Vo l]Ordered By: Zeinab Poole on 03-19-2023 Lymphocytes (Bld) [#/Vol] N/A [facility] Lymphocytes/100 WBC Auto (Bl d)Ordered By: Zeinab Poole on 03-19-2023 Lymphocytes/100 WBC (Bld) N/A [facility] Lymphocytes/100 leukocytes i n Blood by Manual countOrdered By: Zeinab Poole on 03-19-2023 Lymphocytes/100 WBC (Bld) 14 % Low 18-42 [facility] Comment on above: Performed By: #### C BC, BMP #### [address] MCH [Entitic mass] by Automa mayte countOrdered By: Zeinab Poole on 03-19-2023 MCH (RBC) [Entitic mass] 27.9 pg Normal 27.5-35.2 [facility] Comment on above: Performed By: #### C BC, BMP #### [address] MCHC Auto (RBC) [Mass/Vol]Or dered By: Zeinab Poole on 03-19-2023 MCHC (RBC) [Mass/Vol] 33.4 g/dL 32.5-35.6 [facility] MCV [Entitic volume] by Auto mated countOrdered By: Zeinab Poole on 03-19-2023 MCV (RBC) [Entitic vol] 83.7 fL Normal 83.5-101 [facility] Comment on above: Performed By: #### C BC, BMP #### [address] Macrocytes LM Ql (Bld)Ordere d By: Zeinab Rebeccaskiene on 03-19-2023 Macrocytes Ql (Bld) Slight [facility] Manual blood segmented neutr ophils/100 leukocytesOrdered By: Zeinab Rebeccaskiene on 03-19-2023 Segmented neutrophils/100 WBC (Bld) 74 % High 50-70 [facility] Comment on above: Performed By: #### C BC, BMP #### [facility] [address] [place] [address] [place] Microcytes LM Ql (Bld)Ordere d By: Zeinab Rebeccaskiene on 03-19-2023 Microcytes Ql (Bld) Slight [facility] Monocytes Auto (Bld) [#/Vol] Ordered By: Zeinab Semaskiene on 03-19-2023 Monocytes (Bld) [#/Vol] N/A [facility] Monocytes/100 WBC Auto (Bld) Ordered By: Zeinab Rebeccaskiene on 03-19-2023 Monocytes/100 WBC (Bld) N/A [facility] Monocytes/100 leukocytes in Blood by Manual countOrdered By: Zeinab Rebeccaskiene on 03-19-2023 Monocytes/100 WBC (Bld) 8 % Normal 2-11 [facility] Comment on above: Performed By: #### C BC, BMP #### [place] [address] [place] Neutrophils Auto (Bld) [#/Vo l]Ordered By: Zeinab Rebeccaskiene on 03-19-2023 Neutrophils (Bld) [#/Vol] N/A [facility] Neutrophils/100 WBC Auto (Bl d)Ordered By: Zeinab Semaskiene on 03-19-2023 Neutrophils/100 WBC (Bld) N/A [facility] Nucleated erythrocytes [Pres ence] in Blood by Automated countOrdered By: Zeinab Rebeccaskiene on 03-19-2023 Nucleated RBC Auto Ql (Bld) N/A [facility] Ovalocyte detectionOrdered B y: Zeinab Rebeccaskiene on 03-19-2023 Ovalocytes LM Ql (Bld) [facility] Peripheral white blood cell differential % bands, microscopic examOrdered By: Zeinab Poole on 03-19-2023 Band form neutrophils/100 WBC (Bld) 1 % Normal 0-5 [facility] Comment on above: Performed By: #### C PETEY, BMP #### [facility] [address] [place] [address] [place] Platelet adequacy [Presence] in Blood by Light microscopyOrdered By: Zeinab Poole on 03-19-2023 Platelets LM Ql (Bld) Decreased Normal [facility] Platelet mean volume [Entiti c volume] in Blood by Automated countOrdered By: Zeinab Poole on 03-19-2023 Platelet mean volume (Bld) [Entitic vol] 8.6 fL Normal 6.6-10.1 [facility] Comment on above: Performed By: #### C PETEY, BMP #### [facility] [address] [place] [address] Platelet morphology finding [Identifier] in BloodOrdered By: Zeinab Poole on 03-19-2023 Platelet morphology finding Nom (Bld) Normal Normal [facility] Platelets Large [Presence] i n Blood by Light microscopyOrdered By: Zeinab Poole on 03-19-2023 Platelets Large LM Ql (Bld) [facility] Platelets [#/volume] in Bloo d by Automated countOrdered By: Zeinab Poole on 03-19-2023 Platelets (Bld) [#/Vol] 101 10*3/uL Low 150-450 [facility] Comment on above: Performed By: #### C PETEY, BMP #### [facility] [address] [place] [address] [place] Poikilocytosis [Presence] in Blood by Light microscopyOrdered By: Zeinab Poole on 03-19-2023 Poikilocytosis LM Ql (Bld) [facility] RBC morphologyOrdered By: Casper Poole on 03-19-2023 RBC morphology finding Nom (Bld) N/A [facility] Target cellsOrdered By: Zeinab Poole on 03-19-2023 Target cells LM Ql (Bld) [facility] XR abdomen min 2Von 03-19-20 XR abdomen min 2V [facility] [place] [address] [place] [address] XRay Report Signed Patient: Fede Guerra SR MR#: [id number] : 1955 Acct:[id number] Age/Sex: 68 / M ADM Date: 03/15/23 Loc: Room: [address] [place] [address] Type: ADM IN Attending Dr: Zeinab Poole [...] Christie Durán M.D.03/19/2023 3:41 PM Dictation Location: [place] [address] Transcribed By: CLIFFORD 03/19/23 1541 Dictated By: Christie Durán MD 03/19/23 1538 Signed By: 03/19/23 1541 Normal [facility] Basic Metabolic Panelon 02-26 Anion gap [Moles/Vol] 8.5 mmol/L Normal 6.0-15.0 [facility] Comment on above: Performed By: #### C BC, BMP #### [place] [id number] [facility] Calcium [Mass/Vol] 8.1 mg/dL Low 8.6-10.3 [facility] Comment on above: Performed By: #### C BC, BMP #### [place] [address] [place] Chloride [Moles/Vol] 114 mmol/L High 98-107 [facility] Comment on above: Performed By: #### C BC, BMP #### [facility] [address] CO2 [Moles/Vol] 22.7 mmol/L Normal 21.0-31.0 [facility] Comment on above: Performed By: #### C BC, BMP #### [place] [address] [place] Creatinine [Mass/Vol] 1.86 mg/dL Significan t change up 0.70-1.30 [facility] Comment on above: Performed By: #### C BC, BMP #### [place] [address] [place] Creatinine Clr Calc Pharmacy 38.01 Normal [facility] Comment on above: Result Comment: PERF ORMED BY: [place] [address] PATHOLOGIST PROFESSIONAL TUTOR RENETTA MONACO M.D. Performed By: #### C BC, BMP #### [address] GFR/1.73 sq M.predicted MDRD (S/P/Bld) [Vol rate/Area] 38.931 mL/min/{1.73_m2} Normal [facility] Comment on above: Performed By: #### C BC, BMP #### [address] Glucose [Mass/Vol] 82 mg/dL Normal 70-100 [facility] Comment on above: Result Comment: [place] Glucose Reference Range is dependent on time and content of last meal. Glucose of more than 200 mg/dL in a nonstressed, ambulatory subject supports the diagnosis of Diabetes Mellitus. ADA recommended reference range Performed By: #### C BC, BMP #### [place] [address] [place] Potassium [Moles/Vol] 4.2 mmol/L Normal 3.5-5.1 [facility] Comment on above: Performed By: #### C BC, BMP #### [address] Sodium [Moles/Vol] 141 mmol/L Normal 136-145 [facility] Comment on above: Performed By: #### C BC, BMP #### [address] Urea nitrogen [Mass/Vol] 47 mg/dL High 7-25 [facility] Comment on above: Performed By: #### C BC, BMP #### [address] Dohle bodies detectionOrdere d By: Zeinab Poole on 03-18-2023 Dohle body LM Ql (Bld) Slight [facility] Scan and CBCon 03-18-2023 Anisocytosis Ql (Bld) Slight Normal [facility] Comment on above: Performed By: #### C BC, BMP #### [address] Basophils (Bld) [#/Vol] 0.1 10*3/uL Normal 0.0-0.2 [facility] Comment on above: Performed By: #### C BC, BMP #### [address] Basophils/100 WBC (Bld) 0.5 % Normal . T he [facility] Comment on above: Performed By: #### C BC, BMP #### [address] Dohle Bodies Slight Normal [facility] Comment on above: Performed By: #### C BC, BMP #### [address] Eosinophils (Bld) [#/Vol] 0.2 10*3/uL Normal 0.0-0.45 [facility] Comment on above: Performed By: #### C BC, BMP #### [address] Eosinophils/100 WBC (Bld) 1.4 % Normal . [facility] Comment on above: Performed By: #### C BC, BMP #### [address] Erythrocyte distribution width (RBC) [Ratio] 15.6 % High 12.0-14.8 [facility] Comment on above: Performed By: #### C BC, BMP #### [address] Hematocrit (Bld) [Volume fraction] 30.9 % Low 38.8-50.0 [facility] Comment on above: Performed By: #### C BC, BMP #### [address] Hemoglobin (Bld) [Mass/Vol] 10.1 g/dL Low 13.0-17.0 [facility] Comment on above: Performed By: #### C BC, BMP #### [address] Lymphocytes (Bld) [#/Vol] 1.1 10*3/uL Normal 1.00-4.8 [facility] Comment on above: Performed By: #### C BC, BMP #### [address] Lymphocytes/100 WBC (Bld) 6.4 % Normal . [facility] Comment on above: Performed By: #### C BC, BMP #### [address] MCH (RBC) [Entitic mass] 27.6 pg Normal 27.5-35.2 [facility] Comment on above: Performed By: #### C BC, BMP #### [address] MCV (RBC) [Entitic vol] 84.3 fL Normal 83.5-101 T he [facility] Comment on above: Performed By: #### C BC, BMP #### [address] Mean Corpuscular HGB Conc 32.7 g/dL Normal 32.5-35.6 [facility] Comment on above: Performed By: #### C BC, BMP #### [address] Microcytosis Slight Normal [facility] Comment on above: Performed By: #### C BC, BMP #### [address] Monocytes (Bld) [#/Vol] 0.7 10*3/uL Normal 0.0-0.8 [facility] Comment on above: Performed By: #### C BC, BMP #### [address] Monocytes/100 WBC (Bld) 4.2 % Normal . [facility] Comment on above: Performed By: #### C BC, BMP #### [address] Neutrophils (Bld) [#/Vol] 14.6 10*3/uL High 1.8-7.7 [facility] Comment on above: Performed By: #### C BC, BMP #### [address] Neutrophils/100 WBC (Bld) 87.5 % Normal . [facility] Comment on above: Performed By: #### C BC, BMP #### [address] NRBC% 0.1 /100{WBC} Normal 0-0.5 [facility] Comment on above: Performed By: #### C BC, BMP #### [address] Platelet Estimate Decreased Normal Normal [facility] Comment on above: Performed By: #### C BC, BMP #### [address] Platelet mean volume (Bld) [Entitic vol] 8.9 fL Normal 6.6-10.1 [facility] Comment on above: Performed By: #### C BC, BMP #### [address] Platelet Morphology Normal Normal Normal [facility] Comment on above: Result Comment: PERF ORMED BY: [place] [address] PATHOLOGIST PROFESSIONAL TUTOR RENETTA MONACO M.D. Performed By: #### C BC, BMP #### [address] Platelets (Bld) [#/Vol] 105 10*3/uL Low 150-450 [facility] Comment on above: Performed By: #### C BC, BMP #### [address] RBC (Bld) [#/Vol] 3.66 10*6/uL Low 3.90-5.[address] [facility] Comment on above: Performed By: #### C BC, BMP #### [address] WBC (Bld) [#/Vol] 16.6 10*3/uL High 4.1-10.[address] [facility] Comment on above: Performed By: #### C BC, BMP #### [address] Basic Metabolic Panelon 12-2 Anion gap [Moles/Vol] 10.4 mmol/L Normal 6.0-15.0 [facility] Comment on above: Performed By: #### C UU, ADDONUAPLUS #### [address] Calcium [Mass/Vol] 7.9 mg/dL Low 8.6-10.3 [facility] Comment on above: Performed By: #### C UU ADDONUAPLUS #### [address] Chloride [Moles/Vol] 114 mmol/L High 98-107 [facility] Comment on above: Performed By: #### C UU ADDONUAPLUS #### [address] CO2 [Moles/Vol] 21.0 mmol/L Normal 21.0-31.0 [facility] Comment on above: Performed By: #### C UU, ADDONUAPLUS #### [address] Creatinine [Mass/Vol] 2.41 mg/dL Significan t change up 0.70-1.30 [facility] Comment on above: Performed By: #### C UU, ADDONUAPLUS #### [place] [address] [place] Creatinine Clr Calc Pharmacy 29.34 Normal [facility] Comment on above: Result Comment: PERF ORMED BY: [place] [address] PATHOLOGIST PROFESSIONAL TUTOR RENETTA MONACO M.D. Performed By: #### C UU, ADDONUAPLUS #### [place] [address] [place] GFR/1.73 sq M.predicted MDRD (S/P/Bld) [Vol rate/Area] 28.529 mL/min/{1.73_m2} Normal [facility] Comment on above: Performed By: #### C UU, ADDONUAPLUS #### [address] Glucose [Mass/Vol] 71 mg/dL Normal 70-100 [facility] Comment on above: Result Comment: [place] Glucose Reference Range is dependent on time and content of last meal. Glucose of more than 200 mg/dL in a nonstressed, ambulatory subject supports the diagnosis of Diabetes Mellitus. ADA recommended reference range Performed By: #### C UU, ADDONUAPLUS #### [address] Potassium [Moles/Vol] 4.4 mmol/L Normal 3.5-5.1 [facility] Comment on above: Performed By: #### C UU, ADDONUAPLUS #### [address] Sodium [Moles/Vol] 141 mmol/L Normal 136-145 [facility] Comment on above: Performed By: #### C UU ADDONUAPLUS #### [address] Urea nitrogen [Mass/Vol] 48 mg/dL High 7-25 [facility] Comment on above: Performed By: #### C UChelle ADDONUAPLUS #### [address] Scan and CBCon 03-17-2023 Anisocytosis Ql (Bld) Slight Normal [facility] Comment on above: Performed By: #### C UChelle ADDONUAPLUS #### [address] Basophils (Bld) [#/Vol] 0.1 10*3/uL Normal 0.0-0.2 [facility] Comment on above: Performed By: #### C UU ADDONUAPLUS #### [address] Basophils/100 WBC (Bld) 0.7 % Normal . T lillian [facility] Comment on above: Performed By: #### C UChelle ADDONUAPLUS #### [address] Dohle Bodies Moderate Normal [facility] Comment on above: Performed By: #### C UU, ADDONUAPLUS #### [address] Eosinophils (Bld) [#/Vol] 0.3 10*3/uL Normal 0.0-0.45 [facility] Comment on above: Performed By: #### C UU ADDONUAPLUS #### [address] Eosinophils/100 WBC (Bld) 1.5 % Normal . [facility] Comment on above: Performed By: #### C UU ADDONUAPLUS #### [address] Erythrocyte distribution width (RBC) [Ratio] 16.0 % High 12.0-14.8 [facility] Comment on above: Performed By: #### C UU, ADDONUAPLUS #### [address] Hematocrit (Bld) [Volume fraction] 30.0 % Low 38.8-50.0 [facility] Comment on above: Performed By: #### C UU, ADDONUAPLUS #### [address] Hemoglobin (Bld) [Mass/Vol] 9.9 g/dL Low 13.0-17.0 [facility] Comment on above: Performed By: #### C UU, ADDONUAPLUS #### [address] Lymphocytes (Bld) [#/Vol] 1.1 10*3/uL Normal 1.00-4.8 [facility] Comment on above: Performed By: #### C UU, ADDONUAPLUS #### [address] Lymphocytes/100 WBC (Bld) 6.0 % Normal . [facility] Comment on above: Performed By: #### C UU, ADDONUAPLUS #### [address] MCH (RBC) [Entitic mass] 28.0 pg Normal 27.5-35.2 [facility] Comment on above: Performed By: #### C UU, ADDONUAPLUS #### [address] MCV (RBC) [Entitic vol] 84.7 fL Normal 83.5-101 T he [facility] Comment on above: Performed By: #### C UU, ADDONUAPLUS #### [address] Mean Corpuscular HGB Conc 33.1 g/dL Normal 32.5-35.6 [facility] Comment on above: Performed By: #### C UU, ADDONUAPLUS #### [address] Microcytosis Slight Normal [facility] Comment on above: Performed By: #### C UU, ADDONUAPLUS #### [facility] [address] [place] [address] Monocytes (Bld) [#/Vol] 1.0 10*3/uL High 0.0-0.8 [facility] Comment on above: Performed By: #### C UU, ADDONUAPLUS #### [place] [address] [place] Monocytes/100 WBC (Bld) 5.3 % Normal . [facility] Comment on above: Performed By: #### C UU, ADDONUAPLUS #### [place] [address] [place] Neutrophils (Bld) [#/Vol] 15.8 10*3/uL High 1.8-7.7 [facility] Comment on above: Performed By: #### C UU, ADDONUAPLUS #### [address] Neutrophils/100 WBC (Bld) 86.5 % Normal . [facility] Comment on above: Performed By: #### C UU, ADDONUAPLUS #### [place] [address] [place] NRBC% 0.0 /100{WBC} Normal 0-0.5 [facility] Comment on above: Performed By: #### C UU, ADDONUAPLUS #### [address] Platelet Estimate Decreased Normal Normal [facility] Comment on above: Performed By: #### C UU, ADDONUAPLUS #### [address] Platelet mean volume (Bld) [Entitic vol] 8.9 fL Normal 6.6-10.1 [facility] Comment on above: Performed By: #### C UU, ADDONUAPLUS #### [address] Platelet Morphology Normal Normal Normal [facility] Comment on above: Result Comment: PERF ORMED BY: [place] [address] PATHOLOGIST PROFESSIONAL TUTOR RENETTA MONACO M.D. Performed By: #### C UU, ADDONUAPLUS #### [address] Platelets (Bld) [#/Vol] 105 10*3/uL Low 150-450 [facility] Comment on above: Performed By: #### C UU, ADDONUAPLUS #### [address] RBC (Bld) [#/Vol] 3.54 10*6/uL Low 3.90-5.[address] [facility] Comment on above: Performed By: #### C UU, ADDONUAPLUS #### [address] Toxic Vacuolation Moderate Normal [facility] Comment on above: Performed By: #### C UU, ADDONUAPLUS #### [address] WBC (Bld) [#/Vol] 18.3 10*3/uL High 4.1-10.[address] [facility] Comment on above: Performed By: #### C UU, ADDONUAPLUS #### [address] Toxic leukocyte vacuolation detectionOrdered By: Zeinab Poole on 03-17-2023 Leukocyte toxic vacuoles LM Ql (Bld) Moderate [facility] Alanine aminotransferase [En zymatic activity/volume] in Serum or PlasmaOrdered By: Gilbert Lockwood on 2023 ALT [Catalytic activity/Vol] 76 U/L High 7-52 [facility] Comment on above: Performed By: #### S CAN CBC, BMP #### [address] [place] [address] [place] Albumin [Mass/volume] in Ser um or Plasma by Bromocresol green (BCG) dye binding methoOrdered By: Gilbert Lockwood on 2023 Albumin BCG dye [Mass/Vol] 3.1 g/dL 3.5-5.7 [facility] Alkaline phosphatase [Enzyma tic activity/volume] in Serum or PlasmaOrdered By: Gilbert Lockwood on 2023 ALP [Catalytic activity/Vol] 49 U/L Normal 34-104 [facility] Comment on above: Performed By: #### S CAN CBC, BMP #### [address] Aspartate aminotransferase [ Enzymatic activity/volume] in Serum or PlasmaOrdered By: Gilbert Lockwood on 2023 AST [Catalytic activity/Vol] 209 U/L High 13-39 [facility] Comment on above: Performed By: #### S CAN CBC, BMP #### [address] Bilirubin.total [Mass/volume ] in Serum or PlasmaOrdered By: Gilbert Lockwood on 2023 Bilirubin [Mass/Vol] 0.9 mg/dL Normal 0.3-1.0 [facility] Comment on above: Performed By: #### S CAN CBC, BMP #### [address] Blood toxic granulation dete ction by light microscopyOrdered By: Gilbert Lockwood on 2023 Toxic granules LM Ql (Bld) Slight [facility] Comprehensive Metabolic Pane kimberly 2023 Albumin [Mass/Vol] 3.1 g/dL Low 3.5-5.7 [facility] Comment on above: Performed By: #### S CAN CBC, BMP #### [address] Anion gap [Moles/Vol] 10.8 mmol/L Normal 6.0-15.0 Th e [facility] Comment on above: Performed By: #### S CAN CBC, BMP #### [address] [address] [place] Calcium [Mass/Vol] 7.7 mg/dL Low 8.6-10.3 [facility] Comment on above: Performed By: #### S CAN CBC, BMP #### [address] Chloride [Moles/Vol] 113 mmol/L High 98-107 [facility] Comment on above: Performed By: #### S CAN CBC, BMP #### [address] CO2 [Moles/Vol] 20.8 mmol/L Low 21.0-31.0 [facility] Comment on above: Performed By: #### S CAN CBC, BMP #### [address] Creatinine [Mass/Vol] 3.56 mg/dL High 0.70-1.30 [facility] Comment on above: Performed By: #### S CAN CBC, BMP #### [address] Creatinine Clr Calc Pharmacy 19.86 Normal [facility] Comment on above: Result Comment: PERF ORMED BY: [place] [address] PATHOLOGIST PROFESSIONAL TUTOR RENETTA MONACO M.D. Performed By: #### S CAN CBC, BMP #### [address] GFR/1.73 sq M.predicted MDRD (S/P/Bld) [Vol rate/Area] 17.864 mL/min/{1.73_m2} Normal [facility] Comment on above: Performed By: #### S CAN CBC, BMP #### [address] Glucose [Mass/Vol] 70 mg/dL Normal 70-100 [facility] Comment on above: Result Comment: [place] Glucose Reference Range is dependent on time and content of last meal. Glucose of more than 200 mg/dL in a nonstressed, ambulatory subject supports the diagnosis of Diabetes Mellitus. ADA recommended reference range Performed By: #### S CAN CBC, BMP #### [facility] [address] Potassium [Moles/Vol] 4.6 mmol/L Normal 3.5-5.1 [facility] Comment on above: Performed By: #### S CAN CBC, BMP #### [facility] [address] Sodium [Moles/Vol] 140 mmol/L Normal 136-145 [facility] Comment on above: Performed By: #### S CAN CBC, BMP #### [facility] [address] Urea nitrogen [Mass/Vol] 42 mg/dL High 7-25 [facility] Comment on above: Performed By: #### S CAN CBC, BMP #### [address] Creatinine [Mass/volume] in UrineOrdered By: Jim Arcos on 2023 Creatinine (U) [Mass/Vol] 109.0 mg/dL 14.0-26.0 [facility] Creatinine, Urine (Random)on 2023 Creatinine, Urine (Random) 109.0 mg/dL High 14.0-26.0 [facility] Comment on above: Performed By: #### C UU, ADDONUAPLUS #### [place] [address] [place] Diff and CBCon 2023 Band form neutrophils/100 WBC (Bld) 24 % High 0-5 [facility] Comment on above: Performed By: #### S CAN CBC, BMP #### [facility] [address] [place] [address] [place] Dohle Bodies Slight Normal [facility] Comment on above: Performed By: #### S CAN CBC, BMP #### [facility] [address] [place] [address] [place] Erythrocyte distribution width (RBC) [Ratio] 15.4 % High 12.0-14.8 [facility] Comment on above: Performed By: #### S CAN CBC, BMP #### [facility] [address] Hematocrit (Bld) [Volume fraction] 34.0 % Low 38.8-50.0 [facility] Comment on above: Performed By: #### S CAN CBC, BMP #### [address] Hemoglobin (Bld) [Mass/Vol] 11.2 g/dL Low 13.0-17.0 [facility] Comment on above: Performed By: #### S CAN CBC, BMP #### [address] Lymphocytes/100 WBC (Bld) 6 % Low 18-42 [facility] Comment on above: Performed By: #### S CAN CBC, BMP #### [address] MCH (RBC) [Entitic mass] 27.6 pg Normal 27.5-35.2 [facility] Comment on above: Performed By: #### S CAN CBC, BMP #### [address] MCV (RBC) [Entitic vol] 84.2 fL Normal 83.5-101 [facility] Comment on above: Performed By: #### S CAN CBC, BMP #### [address] Mean Corpuscular HGB Conc 32.8 g/dL Normal 32.5-35.6 [facility] Comment on above: Performed By: #### S CAN CBC, BMP #### [address] Metamyelocytes 5 % High 0-0 [facility] Comment on above: Performed By: #### S CAN CBC, BMP #### [address] Monocytes/100 WBC (Bld) 5 % Normal 2-11 [facility] Comment on above: Performed By: #### S CAN CBC, BMP #### [place] [id number] [place] Platelet Estimate Decreased Normal Normal The [facility] Comment on above: Performed By: #### S CAN CBC, BMP #### [address] Platelet mean volume (Bld) [Entitic vol] 8.2 fL Normal 6.6-10.1 [facility] Comment on above: Performed By: #### S CAN CBC, BMP #### [address] Platelet Morphology Normal Normal Normal The [facility] Comment on above: Result Comment: PERF ORMED BY: [place] [address] PATHOLOGIST PROFESSIONAL TUTOR RENETTA MONACO M.D. Performed By: #### S CAN CBC, BMP #### [address] Platelets (Bld) [#/Vol] 121 10*3/uL Low 150-450 [facility] Comment on above: Performed By: #### S CAN CBC, BMP #### [address] RBC (Bld) [#/Vol] 4.04 10*6/uL Normal 3.90-5.[address] [facility] Comment on above: Performed By: #### S CAN CBC, BMP #### [address] RBC morphology finding Nom (Bld) Normal Normal Normal [facility] Comment on above: Performed By: #### S CAN CBC, BMP #### [place] [address] [place] Segmented neutrophils/100 WBC (Bld) 62 % Normal 50-70 [facility] Comment on above: Performed By: #### S CAN CBC, BMP #### [address] Toxic Granulation Slight Normal [facility] Comment on above: Performed By: #### S CAN CBC, BMP #### [place] [address] [place] Toxic Vacuolation Slight Normal [facility] Comment on above: Performed By: #### S CAN CBC, BMP #### [facility] [address] WBC (Bld) [#/Vol] 17.9 10*3/uL High 4.1-10.5 [facility] Comment on above: Performed By: #### S CAN CBC, BMP #### [facility] [address] echo transthoracicon [facility] echo transthoracic [facility] [address] [place] [address] [place] [address] Echocardiogram Signed Patient: Fede Guerra SR MR#: [id number] : 1955 Acct:[id number] Age/Sex: 68 / M ADM Date: 03/15/23 Loc: Room: [address] [place] [address] Type: ADM IN Attending Dr: Zeinab Poole MD Ordering Provider: Jim Arcos DO Date of Service: 03/16/23 [facility] echo transthoracic: elevated troponin Copies to: DO [...] Donis England MD 03/16/23 1702 Normal [facility] Eosinophil,Urineon 3 Eosinophil,Urine 2 % High 0-1 The [facility] Comment on above: Result Comment: PERF ORMED BY: [place] [address] PATHOLOGIST PROFESSIONAL TUTOR RENETTA MONACO M.D. Performed By: #### C UU, ADDONUAPLUS #### [address] Eosinophils detection in uri ne sediment by Black stainOrdered By: Jim Arcos on 2023 Eosinophils Black stain Ql (Urine sed) 2 % 0-1 [facility] Lactate [Moles/volume] in Se rum or PlasmaOrdered By: Gilbert Lockwood on 2023 Lactate [Moles/Vol] 1.3 mmol/L Normal 0.5-2.2 [facility] Comment on above: Result Comment: PERF ORMED BY: [place] [address] PATHOLOGIST PROFESSIONAL TUTOR RENETTA MONACO M.D. Performed By: #### S CAN CBC, BMP #### [facility] [address] [place] [address] [place] Lactic Acidon 2023 Lactate [Moles/Vol] 1.8 mmol/L Normal 0.5-2.[address] [facility] Comment on above: Result Comment: PERF ORMED BY: [place] [address] PATHOLOGIST PROFESSIONAL TUTOR RENETTA MONACO M.D. Performed By: #### A ERC #### [address] Metamyelocytes/100 WBC Manua l cnt (Bld)Ordered By: Gilbert Lockwood on 2023 Metamyelocytes/100 WBC (Bld) 5 % 0-0 [facility] Potassiumon 2023 Potassium [Moles/Vol] 4.7 mmol/L Normal 3.5-5.1 [facility] Comment on above: Result Comment: PERF ORMED BY: [place] [address] PATHOLOGIST PROFESSIONAL TUTOR RENETTA MONACO M.D. Performed By: #### C UU, ADDONUAPLUS #### [place] [id number] [place] Potassium [Moles/volume] in UrineOrdered By: iJm Arcos on 2023 Potassium (U) [Moles/Vol] 39.7 mmol/L [facility] Comment on above: No reference range e stablished Potassium, Urine (Random)on 2023 Potassium, Urine (Random) 39.7 mmol/L Normal [facility] Comment on above: Result Comment: No r eference range established PERFORMED BY: [place] [address] PATHOLOGIST PROFESSIONAL TUTOR RENETTA MONACO M.D. Performed By: #### C UU, GUSTAVOONUAPLUS #### [place] [id number] [place] Protein [Mass/volume] in Ser um or PlasmaOrdered By: Gilbert Lockwood on 2023 Protein [Mass/Vol] 5.6 g/dL Low 6.4-8.9 [facility] Comment on above: Performed By: #### S CAN CBC, BMP #### [facility] [address] [place], [place] [id number] [place] Protein [Mass/volume] in Uri neOrdered By: Jim Arcos on 2023 Protein (U) [Mass/Vol] 103 mg/dL High 0-9 [facility] Comment on above: Performed By: #### C UU, ADDONUAPLUS #### [facility] [address] Serum globulin measurement b y calculation (mass/volume)Ordered By: Gilbert Lockwood on 2023 Globulin (S) [Mass/Vol] 2.5 g/dL Normal [facility] Comment on above: Performed By: #### S CAN CBC, BMP #### [facility] [address] [place] [address] Serum or plasma albumin/glob ulin mass ratioOrdered By: Gilbert Lockwood on 2023 Albumin/Globulin [Mass ratio] 1.2 {ratio} Normal [facility] Comment on above: Performed By: #### S CAN CBC, BMP #### [address] Sodium [Moles/volume] in Uri neOrdered By: Jim Arcos on 2023 Sodium (U) [Moles/Vol] 67 mmol/L Normal [facility] Comment on above: No reference range e stablished Result Comment: No r eference range established Performed By: #### C UU, ADDONUAPLUS #### [address] Troponin I High Sensitivityo n 2023 Troponin I High Sensitivity 93.2 pg/mL Off scale high 0.0-20.0 [facility] Comment on above: Result Comment: Crit ical Result : Called to and read back by: STEFANIE KENDALL at: 2023 06:27:35 by:ZOLTAN PERFORMED BY: [place] [address] PATHOLOGIST PROFESSIONAL TUTOR RENETTA MONACO M.D. Performed By: #### S CAN CBC, BMP #### [facility] [address] [place] [address] Troponin I High Sensitivity 123.7 pg/mL Off scale high 0.0-20.0 [facility] Comment on above: Order Comment: ARRIETAPrachi FOSTER @0320, NO ANSWER Result Comment: Crit ical Result : Called to and read back by: MIGUEL KENDALL at: 2023 03:27:22 by:LORENZO PERFORMED BY: [place] [address] PATHOLOGIST PROFESSIONAL TUTOR RENETTA MONACO M.D. Performed By: #### A [facility] #### [address] Troponin I.cardiac [Mass/vol ume] in Serum or Plasma by Detection limit <= 0.01 ng/Ordered By: Gilbert Lockwood on 2023 Troponin I.cardiac DL <= 0.01 ng/mL [Mass/Vol] 93.2 pg/mL 0.0-20.0 [facility] Comment on above: Critical Result : Ca lled to and read back by: STEFANIE KENDALL at: 2023 06:27:35 by:ZOLTAN US renal BIon 2023 US renal BI [facility] [address] [place] [address] [place] [address] Ultrasound Report Signed Patient: Fede Guerra SR MR#: [id number] : 1955 Acct:[id number] Age/Sex: 68 / M ADM Date: 03/15/23 Loc: Room: [address] [place] [address] Type: ADM IN Attending Dr: Zeinab Poole [...] Christie Durán M.D.03/16/2023 9:49 AM Dictation Location: [place] [address] Tech: Leah Foreman Transcribed By: CLIFFORD 03/16/23948 Dictated By: Christie Durán MD [id number] Signed By: 03/16/23948 Normal [facility] Automated erythrocytes count in urine sediment (number/area)Ordered By: River Alberto on 03-14-2023 RBC Auto (Urine sed) [#/Area] 5-9 [HPF] 0-4 [facility] Automated leukocytes count i n urine sediment (number/area)Ordered By: River Alberto on 03-14-2023 WBC Auto (Urine sed) [#/Area] Innumerable [HPF] 0-4 [facility] Automated urine color determ inationOrdered By: River Alberto on 03-14-2023 Color (U) Yellow Normal Yellow [facility] Comment on above: Order Comment: Name Collection Type:: Hernandez Catheter Performed By: #### C UU, ADDONUAPLUS #### [facility] [address] Bilirubin Test strip Ql (U)O rdered By: River Alberto on 03-14-2023 Bilirubin Ql (U) Negative Negative [facility] Dipstick and Microscopicon 1 05-15-2022 Appearance (U) Turbid Critically abnormal Clear [facility] Comment on above: Order Comment: Name Collection Type:: Hernandez Catheter Performed By: #### C UU, ADDONUAPLUS #### [facility] [address] [place] [address] [place] Bacteria,Urine 4+ High None Seen [facility] Comment on above: Order Comment: Name Collection Type:: Hernandez Catheter Performed By: #### C UU, ADDONUAPLUS #### [facility] [address] [place] [address] [place] Bilirubin,Urine Negative Normal Negative [facility] Comment on above: Order Comment: Name Collection Type:: Hernandez Catheter Performed By: #### C UU, ADDONUAPLUS #### [facility] [address] [place] [id number] [place] Glucose Ql (U) Normal Normal Normal [facility] Comment on above: Order Comment: Name Collection Type:: Hernandez Catheter Performed By: #### C UU, ADDONUAPLUS #### [address] Hyaline Casts,Urine None Seen Normal 0-8 [facility] Comment on above: Order Comment: Name Collection Type:: Hernandez Catheter Performed By: #### C UU, ADDONUAPLUS #### [address] Ketones Ql (U) Negative Normal Negative [facility] Comment on above: Order Comment: Name Collection Type:: Hernandez Catheter Performed By: #### C UU, ADDONUAPLUS #### [address] Leukocyte esterase Test strip Ql (U) 4+ High Negative [facility] Comment on above: Order Comment: Name Collection Type:: Hernandez Catheter Performed By: #### C UU, ADDONUAPLUS #### [address] Nitrite,Urine Negative Normal Negative [facility] Comment on above: Order Comment: Name Collection Type:: Hernandez Catheter Performed By: #### C UU, ADDONUAPLUS #### [address] Occult Blood,Urine 3+ High Negative The [facility] Comment on above: Order Comment: Name Collection Type:: Hernandez Catheter Result Comment: PERF ORMED BY: [place] [address] PATHOLOGIST PROFESSIONAL TUTOR RENETTA MONACO M.D. Performed By: #### C UU, ADDONUAPLUS #### [place] [address] [place] RBC,Urine 5-9 High 0-4 [facility] Comment on above: Order Comment: Name Collection Type:: Hernandez Catheter Performed By: #### C UU, ADDONUAPLUS #### [address] [place] [address] [place] Specificy [place],Urine 1.009 Normal 1.001-1.030 [facility] Comment on above: Order Comment: Name Collection Type:: Hernandez Catheter Performed By: #### C UU, ADDONUAPLUS #### [address] Squamous Epithelial Cell,Urine None Seen Normal 0-2 [facility] Comment on above: Order Comment: Name Collection Type:: Hernandez Catheter Performed By: #### C UU, ADDONUAPLUS #### [address] Urobilinogen,Urine Normal Normal Normal [facility] Comment on above: Order Comment: Name Collection Type:: Hernandez Catheter Performed By: #### C UU, ADDONUAPLUS #### [address] WBC,Urine Innumerable High 0-4 [facility] Comment on above: Order Comment: Name Collection Type:: Hernandez Catheter Performed By: #### C UU, ADDONUAPLUS #### [address] Yeast,Urine None Seen Normal None Seen [facility] Comment on above: Order Comment: Name Collection Type:: Hernandez Catheter Result Comment: PERF ORMED BY: [place] [address] PATHOLOGIST PROFESSIONAL TUTOR RENETTA MONACO M.D. Performed By: #### C UU, ADDONUAPLUS #### [address] Ketones Auto test strip (U) [Mass/Vol]Ordered By: River Alberto on 03-14-2023 Ketones (U) [Mass/Vol] Negative Negative [facility] - UrinalysisOrder ed By: River Alberto on 03-14-2023 Hyaline casts LM Ql (Urine sed) None seen [LPF] 0-8 [facility] Nitrite Test strip Ql (U)Ord ered By: River Alberto on 03-14-2023 Nitrite Ql (U) Negative Negative [facility] Specific gravity Auto test s trip (U) [Rel density]Ordered By: Riverstacia Alberto on 03-14-2023 Specific gravity (U) [Rel density] 1.009 1.001-1.030 [facility] Squamous epithelial cells de tection in urine sediment by light microscopyOrdered By: River Alberto on 03-14-2023 Epithelial cells.squamous LM Ql (Urine sed) None seen [HPF] 0-2 [facility] Urine Cultureon 03-14-2023 Bacteria identified Cx Nom (U) ORGANISM: Enterococcus faecalis (O:ENTFAC) [place] Count >100,000 ORGANISM: Klebsiella pneumoniae (ESBL) (O:KLEPNEESBL) [place] Count >100,000 ORGANISM: Acinetobacter crystal/nosocom grp (O:ACIBAUNOS) [place] Count 50,000 Organism Comments MULTIDRUG RESISTANT ORGANISM [...] RESISTANT TO ALL B-LACTAM DRUGS. PERFORMED BY: [place] [address] PATHOLOGIST PROFESSIONAL TUTOR RENETTA MONACO M.D. Normal [facility] Comment on above: Performed By: #### C DORIAN ROBLEDO #### [address] Urine bacteria detection by automated methodOrdered By: River Alberto on 03-14-2023 Bacteria Auto Ql (U) 4+ None Seen [facility] Urine clarity by refractomet ry automatedOrdered By: River Alberto on 03-14-2023 Clarity Refractometry automated (U) Turbid Clear [facility] Urine culture routineOrdered By: River Alberto on 03-14-2023 Bacteria identified Cx Nom (U) Enterococcus faecalis [facility] Bacteria identified Cx Nom (U) Klebsiella pneumoniae (ESBL) [facility] Bacteria identified Cx Nom (U) Acinetobacter crystal/nosocom grp [facility] Urine glucose measurement by automated test strip (mass/volume)Ordered By: River Alberto on 03-14-2023 Glucose Auto test strip (U) [Mass/Vol] Normal mg/dL Normal [facility] Urine hemoglobin detection b y automated test stripOrdered By: River Alberto on 03-14-2023 Hemoglobin Auto test strip Ql (U) 3+ Negative [facility] Urine leukocyte esterase det ection by automated test stripOrdered By: River Alberto on 03-14-2023 Leukocyte esterase Auto test strip Ql (U) 4+ Negative [facility] Urine pH measurement by auto mated test stripOrdered By: River Alberto on 03-14-2023 pH (U) 6.0 [pH] Normal 5.0-9.0 [facility] Comment on above: Order Comment: Name Collection Type:: Hernandez Catheter Performed By: #### C UU, ADDONUAPLUS #### [facility] [address] Urine protein measurement by automated test strip (mass/volume)Ordered By: River Alberto on 03-14-2023 Protein (U) [Mass/Vol] 30 mg/dL High Negative [facility] Comment on above: Order Comment: Name Collection Type:: Hernandez Catheter Performed By: #### C UU, ADDONUAPLUS #### [facility] [address] [place] [id number] [facility] Urobilinogen Auto test strip (U) [Mass/Vol]Ordered By: River Alberto on 03-14-2023 Urobilinogen (U) [Mass/Vol] Normal mg/dL Normal [facility] Yeast detection in urine sed iment by light microscopyOrdered By: River Alberto on 03-14-2023 Yeast LM Ql (Urine sed) None seen [HPF] None Se en [facility] CNPNon 03-01-2023 CNPN Normal [facility] Alanine aminotransferase [En zymatic activity/volume] in Serum or PlasmaOrdered By: Williamnahun Carver on 02-14-2023 ALT [Catalytic activity/Vol] 7 U/L Normal 7-52 [facility] Comment on above: Performed By: #### C UU, ADDONUAPLUS #### [facility] [address] [place] [address] Albumin [Mass/volume] in Ser um or Plasma by Bromocresol green (BCG) dye binding methoOrdered By: William Carver on 02-14-2023 Albumin BCG dye [Mass/Vol] 3.9 g/dL 3.5-5.7 [facility] Alkaline phosphatase [Enzyma tic activity/volume] in Serum or PlasmaOrdered By: William Carver on 02-14-2023 ALP [Catalytic activity/Vol] 55 U/L Normal 34-104 [facility] Comment on above: Performed By: #### C UU, ADDONUAPLUS #### [facility] [address] [place] [address] Aspartate aminotransferase [ Enzymatic activity/volume] in Serum or PlasmaOrdered By: William Carver on 02-14-2023 AST [Catalytic activity/Vol] 10 U/L Low 13-39 [facility] Comment on above: Performed By: #### C UChelle, ADDONUAPLUS #### [address] Automated basophil %Ordered By: William Carver on 02-14-2023 Basophils/100 WBC (Bld) 1.1 % Normal . [facility] Comment on above: Performed By: #### C UU, ADDONUAPLUS #### [address] Automated basophil countOrde red By: William Carver on 02-14-2023 Basophils (Bld) [#/Vol] 0.1 10*3/uL Normal 0.0-0.2 [facility] Comment on above: Result Comment: PERF ORMED BY: [place] [address] PATHOLOGIST PROFESSIONAL TUTOR RENETTA MONACO M.D. Performed By: #### C UU, ADDONUAPLUS #### [address] Automated blood monocyte cou ntOrdered By: William Carver on 02-14-2023 Monocytes (Bld) [#/Vol] 0.6 10*3/uL Normal 0.0-0.8 [facility] Comment on above: Performed By: #### C UU, ADDONUAPLUS #### [address] Automated eosinophil %Ordere d By: William Carver on 02-14-2023 Eosinophils/100 WBC (Bld) 3.2 % Normal . [facility] Comment on above: Performed By: #### C UU, ADDONUAPLUS #### [address] Automated eosinophil countOr dered By: William Carver on 02-14-2023 Eosinophils (Bld) [#/Vol] 0.2 10*3/uL Normal 0.0-0.45 [facility] Comment on above: Performed By: #### C UU, ADDONUAPLUS #### [address] Automated erythrocytes count in urine sediment (number/area)Ordered By: William Carver on 02-14-2023 RBC Auto (Urine sed) [#/Area] 1-2 [HPF] 0-4 [facility] Automated leukocytes count i n urine sediment (number/area)Ordered By: William Carver on 02-14-2023 WBC Auto (Urine sed) [#/Area] 50-100 [HPF] 0-4 [facility] Automated monocyte %Ordered By: William Carver on 02-14-2023 Monocytes/100 WBC (Bld) 9.8 % Normal . [facility] Comment on above: Performed By: #### C UU, ADDONUAPLUS #### [address] Automated neutrophil %Ordere d By: William Carver on 02-14-2023 Neutrophils/100 WBC (Bld) 55.6 % Normal . [facility] Comment on above: Performed By: #### C ChelleU, GUSTAVOONUAPLUS #### [facility] [address] [place] [address] Automated urine color determ inationOrdered By: William Carver on 02-14-2023 Color (U) Yellow Normal Yellow [facility] Comment on above: Order Comment: Name Collection Type:: Hernandez Catheter Performed By: #### C ChelleU, ADDONUAPLUS #### [facility] [address] [place] [address] Automated urine hyaline cast s count (number/volume)Ordered By: William Carver on 02-14-2023 Hyaline casts Auto (U) [#/Vol] 5-9 [LPF] 0-1 [facility] Automated urine sediment alice cium oxalate crystal count by microscopy (number/high powOrdered By: William Carver on 02-14-2023 Calcium oxalate crystals LM.HPF (Urine sed) [#/Area] 1+ [HPF] [facility] Basic Metabolic Panelon 01-27 GFR/1.73 sq M.predicted MDRD (S/P/Bld) [Vol rate/Area] mL/min/{1.73_m2} Normal [facility] Comment on above: Performed By: #### C MEENA, ADDONUAPLUS #### [facility] [address] [place] [address] Bilirubin Test strip Ql (U)O rdered By: William Carver on 02-14-2023 Bilirubin Ql (U) Negative Negative [facility] Bilirubin.direct [Mass/volum e] in Serum or PlasmaOrdered By: William Carver on 02-14-2023 Bilirubin.direct [Mass/Vol] 0.00 mg/dL 0.03-0.18 [facility] Comment on above: If the DBIL is less than 0.1, IBIL is not able to becalculated. Bilirubin.total [Mass/volume ] in Serum or PlasmaOrdered By: William Carver on 02-14-2023 Bilirubin [Mass/Vol] 0.5 mg/dL Normal 0.3-1.0 [facility] Comment on above: Performed By: #### C MEENA, JUSTINUAPLUS #### [facility] [address] abdomen pelvis w conon CT abdomen pelvis w con [facility] [address] [place] [address] [place] [address] CT Scan Report Signed Patient: Shanialy,Fede Drew SR MR#: [id number] : 1955 Acct:[id number] Age/Sex: 67 / M ADM Date: 02/14/23 Loc: ER Room: Type: [facility] ER Attending Dr: Copies to: William [...] Roger Diana M.D.02/14/2023 5:33 PM Dictation Location: [place] [address] Transcribed By: [facility] 02/14/231732 Dictated By: Roger Diana DO 02/14/23 172 Signed By: 02/14/231732 Normal [facility] [facility] Calcium [Mass/volume] in Ser um or PlasmaOrdered By: William Carver on 02-14-2023 Calcium [Mass/Vol] 9.4 mg/dL Normal 8.6-10.3 [facility] Comment on above: Performed By: #### C UU, ADDONUAPLUS #### [facility] [address] [place] [address] Carbon dioxide, total [Moles /volume] in Serum or PlasmaOrdered By: William Carver on 02-14-2023 CO2 [Moles/Vol] 26.8 mmol/L Normal 21.0-31.0 [facility] Comment on above: Performed By: #### C UU, ADDONUAPLUS #### [facility] [address] [place] [address] Casts typing in urine sedime nt by light microscopyOrdered By: William Carver on 02-14-2023 Casts LM Nom (Urine sed) None seen [LPF] None Seen [facility] Chloride [Moles/volume] in S jennifer or PlasmaOrdered By: William Carver on 02-14-2023 Chloride [Moles/Vol] 109 mmol/L High 98-107 [facility] Comment on above: Performed By: #### C UU, ADDONUAPLUS #### [facility] [address] [place] [address] Complete Blood Count Auto Di ffon 02-14-2023 Mean Corpuscular HGB Conc 33.0 g/dL Normal 32.5-35.6 [facility] Comment on above: Performed By: #### C UU, ADDONUAPLUS #### [place] [address] [place] Monocytes/100 WBC (Bld) 16.55 % Normal 0.00-20.00 [facility] Comment on above: Performed By: #### C UU, ADDONUAPLUS #### [place] [address] [place] NRBC% 0.1 /100{WBC} Normal 0-0.5 [facility] Comment on above: Performed By: #### C UU, ADDONUAPLUS #### [place] [address] [place] Creatinine [Mass/volume] in Serum or PlasmaOrdered By: William Carver on 02-14-2023 Creatinine [Mass/Vol] 0.65 mg/dL Low 0.70-1.30 [facility] Comment on above: Performed By: #### C UU, ADDONUAPLUS #### [place] [address] [place] Dipstick and Microscopicon 1 04-16-2022 Appearance (U) Turbid Critically abnormal Clear [facility] Comment on above: Order Comment: Name Collection Type:: Hernandez Catheter Performed By: #### C UU, ADDONUAPLUS #### [place] [address] [place] Bacteria,Urine None Seen Normal None Seen [facility] Comment on above: Order Comment: Name Collection Type:: Hernandez Catheter Performed By: #### C UU, ADDONUAPLUS #### [place] [address] [place] Bilirubin,Urine Negative Normal Negative [facility] Comment on above: Order Comment: Name Collection Type:: Hernandez Catheter Performed By: #### C UU, ADDONUAPLUS #### [place] [address] [place] Calcium Oxalate Crystals,Urine 1+ Normal [facility] Comment on above: Order Comment: Name Collection Type:: Hernandez Catheter Performed By: #### C UU, ADDONUAPLUS #### [place] [address] [place] Fine Granular Casts,Urine 3-4 High 0-1 [facility] Comment on above: Order Comment: Name Collection Type:: Hernandez Catheter Performed By: #### C UU, ADDONUAPLUS #### [address] Glucose Ql (U) Normal Normal Normal [facility] Comment on above: Order Comment: Name Collection Type:: Hernandez Catheter Performed By: #### C UU, ADDONUAPLUS #### [place] [address] [place] Hyaline Casts,Urine 5-9 High 0-1 [facility] Comment on above: Order Comment: Name Collection Type:: Hernandez Catheter Performed By: #### C UU, ADDONUAPLUS #### [place] [address] [place] Ketones Ql (U) Trace High Negative [facility] Comment on above: Order Comment: Name Collection Type:: Hernandez Catheter Performed By: #### C UU, ADDONUAPLUS #### [place] [address] [place] Leukocyte esterase Test strip Ql (U) 3+ High Negative [facility] Comment on above: Order Comment: Name Collection Type:: Hernandez Catheter Performed By: #### C UU, ADDONUAPLUS #### [place] [address] [place] Nitrite,Urine Negative Normal Negative [facility] Comment on above: Order Comment: Name Collection Type:: Hernandez Catheter Performed By: #### C UU, ADDONUAPLUS #### [place] [address] [place] Occult Blood,Urine Trace High Negative The [facility] Comment on above: Order Comment: Name Collection Type:: Hernandez Catheter Result Comment: PERF ORMED BY: [place] [address] PATHOLOGIST PROFESSIONAL TUTOR RENETTA MONACO M.D. Performed By: #### C UU, ADDONUAPLUS #### [facility] [address] [place] [address] Othe Crystals,Urine None Seen Normal The [facility] Comment on above: Order Comment: Name Collection Type:: Hernandez Catheter Performed By: #### C UU, ADDONUAPLUS #### [facility] [address] [place] [address] Other Casts,Urine None Seen Normal None Seen [facility] Comment on above: Order Comment: Name Collection Type:: Hernandez Catheter Performed By: #### C UU, ADDONUAPLUS #### [address] RBC,Urine 1-2 Normal 0-4 [facility] Comment on above: Order Comment: Name Collection Type:: Hernandez Catheter Performed By: #### C UU, ADDONUAPLUS #### [address] Specificy [place],Urine 1.017 Normal 1.001-1.030 [facility] Comment on above: Order Comment: Name Collection Type:: Hernandez Catheter Performed By: #### C UU, ADDONUAPLUS #### [place] [address] [place] Squamous Epithelial Cell,Urine 0-1 Normal 0-2 [facility] Comment on above: Order Comment: Name Collection Type:: Hernandez Catheter Performed By: #### C UU, ADDONUAPLUS #### [facility] [address] [place] [address] Urobilinogen,Urine Normal Normal Normal [facility] Comment on above: Order Comment: Name Collection Type:: Hernandez Catheter Performed By: #### C UU, ADDONUAPLUS #### [facility] [address] [place] [address] [place] WBC,Urine 50-100 High 0-4 [facility] Comment on above: Order Comment: Name Collection Type:: Hernandez Catheter Performed By: #### C UU, ADDONUAPLUS #### [facility] [address] [place] [address] [place] Yeast,Urine None Seen Normal None Seen [facility] Comment on above: Order Comment: Name Collection Type:: Hernandez Catheter Result Comment: PERF ORMED BY: [place] [address] PATHOLOGIST PROFESSIONAL TUTOR RENETTA MONACO M.D. Performed By: #### C UU, ADDONUAPLUS #### [facility] [address] [place] [address] Erythrocyte distribution wid th [Ratio] by Automated countOrdered By: William Carver on 02-14-2023 Erythrocyte distribution width (RBC) [Ratio] 14.9 % High 12.0-14.8 [facility] Comment on above: Performed By: #### C UU, ADDONUAPLUS #### [address] Erythrocytes [#/volume] in B lood by Automated countOrdered By: William Carver on 02-14-2023 RBC (Bld) [#/Vol] 4.50 10*6/uL Normal 3.90-5.60 [facility] Comment on above: Performed By: #### C UU, ADDONUAPLUS #### [address] Fine granular cast count in urine sediment by microscopy (number/low power field )Ordered By: William Carver on 02-14-2023 Fine Granular Casts LM.LPF (Urine sed) [#/Area] 3-4 [LPF] 0-1 [facility] Glucose [Mass/volume] in Ser um or PlasmaOrdered By: William Carver on 02-14-2023 Glucose [Mass/Vol] 101 mg/dL High 70-100 [facility] Comment on above: ADA recommended refe rence rangeRandom Glucose Reference Range is dependent on time and content of last meal. Glucose of more than 200 mg/dL in a nonstressed, ambulatory subject supports the diagnosis of Diabetes Mellitus. Result Comment: [place] om Glucose Reference Range is dependent on time and content of last meal. Glucose of more than 200 mg/dL in a nonstressed, ambulatory subject supports the diagnosis of Diabetes Mellitus. ADA recommended reference range Performed By: #### C UU, ADDONUAPLUS #### [address] Hematocrit [Volume Fraction] of Blood by Automated countOrdered By: William Carver on 02-14-2023 Hematocrit (Bld) [Volume fraction] 37.2 % Low 38.8-50.0 [facility] Comment on above: Performed By: #### C UU, ADDONUAPLUS #### [address] Hemoglobin [Mass/volume] in BloodOrdered By: William Carver on 02-14-2023 Hemoglobin (Bld) [Mass/Vol] 12.3 g/dL Low 13.0-17.0 [facility] Comment on above: Performed By: #### C UU, ADDONUAPLUS #### [address] Hepatic Panelon 02-14-2023 Albumin [Mass/Vol] 3.9 g/dL Normal 3.5-5.7 [facility] Comment on above: Performed By: #### C UU, ADDONUAPLUS #### [address] Bilirubin,Indirect 0.5 mg/dL Normal [facility] Comment on above: Performed By: #### C UU, ADDONUAPLUS #### [address] Bilirubin.indirect [Mass/Vol] 0.00 mg/dL Low 0.03-0.18 [facility] Comment on above: Result Comment: If t he DBIL is less than 0.1, IBIL is not able to be calculated. Performed By: #### C UU, ADDONUAPLUS #### [address] Ketones Auto test strip (U) [Mass/Vol]Ordered By: William Carver on 02-14-2023 Ketones (U) [Mass/Vol] Trace Negative [facility] Leukocytes [#/volume] correc mayte for nucleated erythrocytes in Blood by Automated counOrdered By: William Carver on 02-14-2023 WBC corrected for nucl RBC Auto (Bld) [#/Vol] 6.0 10*3/uL 4.1-10.5 [facility] Leukocytes [#/volume] in Blo od by Automated countOrdered By: William Carver on 02-14-2023 WBC (Bld) [#/Vol] 6.0 10*3/uL Normal 4.1-10.5 [facility] Comment on above: Performed By: #### C UU, ADDONUAPLUS #### [facility] [address] [place] [address] [place] Lipase [Enzymatic activity/v olume] in Serum or PlasmaOrdered By: William Carver on 02-14-2023 Lipase [Catalytic activity/Vol] 7.0 U/L Low 11.0-82.0 [facility] Comment on above: Result Comment: PERF ORMED BY: [place] [address] PATHOLOGIST PROFESSIONAL TUTOR RENETTA MONACO M.D. Performed By: #### C UU, ADDONUAPLUS #### [facility] [address] [place] [address] [place] Lymphocytes [#/volume] in Bl ood by Automated countOrdered By: William Carver on 02-14-2023 Lymphocytes (Bld) [#/Vol] 1.8 10*3/uL Normal 1.00-4.8 [facility] Comment on above: Performed By: #### C UU, ADDONUAPLUS #### [facility] [address] [place] [address] [place] Lymphocytes/100 leukocytes i n Blood by Automated countOrdered By: William Carver on 02-14-2023 Lymphocytes/100 WBC (Bld) 30.3 % Normal . [facility] Comment on above: Performed By: #### C UU, ADDONUAPLUS #### [facility] [address] [place] [address] [place] MCH [Entitic mass] by Automa mayte countOrdered By: William Carver on 02-14-2023 MCH (RBC) [Entitic mass] 27.3 pg Low 27.5-35.2 [facility] Comment on above: Performed By: #### C EDILSON ROBLEDOPLUS #### [facility] [address] [place] [address] MCHC Auto (RBC) [Mass/Vol]Or dered By: William Carver on 02-14-2023 MCHC (RBC) [Mass/Vol] 33.0 g/dL 32.5-35.6 [facility] MCV [Entitic volume] by Auto mated countOrdered By: William Carver on 02-14-2023 MCV (RBC) [Entitic vol] 82.7 fL Low 83.5-101 [facility] Comment on above: Performed By: #### C EMENA, EDILSONPLUS #### [facility] [address] [place] [address] Monocyte distribution width [Entitic volume] in Blood by AutomatedOrdered By: William Carver on 02-14-2023 Monocyte distribution width Auto (Bld) [Entitic vol] 16.55 % 0.00-20.00 [facility] Neutrophils [#/volume] in Bl ood by Automated countOrdered By: William Carver on 02-14-2023 Neutrophils (Bld) [#/Vol] 3.3 10*3/uL Normal 1.8-7.7 [facility] Comment on above: Performed By: #### C MEENA, GUSTAVOONUAPLUS #### [facility] [address] [place] [address] Nitrite Test strip Ql (U)Ord ered By: William Carver on 02-14-2023 Nitrite Ql (U) Negative Negative [facility] No Panel InformationOrdered By: William Carver on 02-14-2023 Estimated GFR (CKD-EPI) > 60.0 mL/Min [facility] Creatinine Clearance (Chem N/A [facility] Nucleated erythrocytes [Pres ence] in Blood by Automated countOrdered By: William Carver on 02-14-2023 Nucleated RBC Auto Ql (Bld) 0.1 /100{WBC} 0-0.5 [facility] Platelet mean volume [Entiti c volume] in Blood by Automated countOrdered By: Williamnahun Carver on 02-14-2023 Platelet mean volume (Bld) [Entitic vol] 7.7 fL Normal 6.6-10.1 [facility] Comment on above: Performed By: #### C UU, ADDONUAPLUS #### [facility] [address] [place] [address] Platelets [#/volume] in Bloo d by Automated countOrdered By: William Carver on 02-14-2023 Platelets (Bld) [#/Vol] 260 10*3/uL Normal 150-450 [facility] Comment on above: Performed By: #### C UU, ADDONUAPLUS #### [address] Potassium [Moles/volume] in Serum or PlasmaOrdered By: William Carver on 02-14-2023 Potassium [Moles/Vol] 3.7 mmol/L Normal 3.5-5.1 [facility] Comment on above: Performed By: #### C UU, ADDONUAPLUS #### [address] Protein [Mass/volume] in Ser um or PlasmaOrdered By: William Carver on 02-14-2023 Protein [Mass/Vol] 6.9 g/dL Normal 6.4-8.9 [facility] Comment on above: Performed By: #### C UU, ADDONUAPLUS #### [facility] [address] [place] [address] Serum globulin measurement b y calculation (mass/volume)Ordered By: William Carver on 02-14-2023 Globulin (S) [Mass/Vol] 3.0 g/dL Normal [facility] Comment on above: Performed By: #### C UU, ADDONUAPLUS #### [address] Serum or plasma albumin/glob ulin mass ratioOrdered By: William Carver on 02-14-2023 Albumin/Globulin [Mass ratio] 1.3 {ratio} Normal [facility] Comment on above: Performed By: #### C UU, ADDONUAPLUS #### [facility] [address] [place] [address] Serum or plasma anion gap de terminationOrdered By: William Carver on 02-14-2023 Anion gap [Moles/Vol] 7.9 mmol/L Normal 6.0-15.0 [facility] Comment on above: Performed By: #### C UU, ADDONUAPLUS #### [address] Serum or plasma non-glucuron idated bilirubin measurement (mass/volume)Ordered By: William Carver on 02-14-2023 Bilirubin.indirect [Mass/Vol] 0.5 mg/dL [facility] Sodium [Moles/volume] in Ser um or PlasmaOrdered By: William Carver on 02-14-2023 Sodium [Moles/Vol] 140 mmol/L Normal 136-145 [facility] Comment on above: Performed By: #### C UU, ADDONUAPLUS #### [address] Specific gravity Auto test s trip (U) [Rel density]Ordered By: William Carver on 02-14-2023 Specific gravity (U) [Rel density] 1.017 1.001-1.030 [facility] Squamous epithelial cells de tection in urine sediment by light microscopyOrdered By: William Carver on 02-14-2023 Epithelial cells.squamous LM Ql (Urine sed) 0-1 [HPF] 0-2 [facility] Urea nitrogen [Mass/volume] in Serum or PlasmaOrdered By: William Carver on 02-14-2023 Urea nitrogen [Mass/Vol] 9 mg/dL Normal 7-25 [facility] Comment on above: Performed By: #### C UU, ADDONUAPLUS #### [address] Urine Cultureon 02-14-2023 Bacteria identified Cx Nom (U) ORGANISM: Acinetobacter crystal/nosocom grp (O:ACIBAUNOS) [place] Count 15,000 Aerobic SCOTT Charge ([id number]) ----- [...] RESISTANT TO ALL B-LACTAM DRUGS. PERFORMED BY: [place] [address] PATHOLOGIST PROFESSIONAL TUTOR RENETTA MONACO M.D. Normal [facility] Comment on above: Performed By: #### C DORIAN ROBLEDO #### [address] Urine bacteria detection by automated methodOrdered By: William Carver on 02-14-2023 Bacteria Auto Ql (U) None seen None Seen [facility] Urine clarity by refractomet ry automatedOrdered By: William Carver on 02-14-2023 Clarity Refractometry automated (U) Turbid Clear [facility] Urine culture routineOrdered By: William Carver on 02-14-2023 Bacteria identified Cx Nom (U) Acinetobacter crystal/nosocom grp [facility] Urine glucose measurement by automated test strip (mass/volume)Ordered By: William Carver on 02-14-2023 Glucose Auto test strip (U) [Mass/Vol] Normal mg/dL Normal [facility] Urine hemoglobin detection b y automated test stripOrdered By: William Carver on 02-14-2023 Hemoglobin Auto test strip Ql (U) Trace Negative [facility] Urine leukocyte esterase det ection by automated test stripOrdered By: Williamnahun Carver on 02-14-2023 Leukocyte esterase Auto test strip Ql (U) 3+ Negative [facility] Urine pH measurement by auto mated test stripOrdered By: William Carevr on 02-14-2023 pH (U) 7.5 [pH] Normal 5.0-9.0 [facility] Comment on above: Order Comment: Name Collection Type:: Hernandez Catheter Performed By: #### C UU, ADDONUAPLUS #### [facility] [address] [place] [address] Urine protein measurement by automated test strip (mass/volume)Ordered By: William Carver on 02-14-2023 Protein (U) [Mass/Vol] 300 mg/dL High Negative [facility] Comment on above: Order Comment: Name Collection Type:: Hernandez Catheter Performed By: #### C UU, ADDONUAPLUS #### [facility] [address] [place] [address] Urine sediment crystal ident ification by light microscopyOrdered By: William Carver on 02-14-2023 Crystals LM Nom (Urine sed) None seen [HPF] [facility] Urobilinogen Auto test strip (U) [Mass/Vol]Ordered By: William Carver on 02-14-2023 Urobilinogen (U) [Mass/Vol] Normal mg/dL Normal [facility] Yeast detection in urine sed iment by light microscopyOrdered By: William Carver on 02-14-2023 Yeast LM Ql (Urine sed) None seen [HPF] None Se en [facility] Automated basophil %Ordered By: Ray Betancourt on 02-06-2023 Basophils/100 WBC (Bld) 1.1 % Normal . [facility] Comment on above: Order Comment: for wendy uscle spasms, I let the charge @rn, she is going to let hany sharp know,pls. Performed By: #### S CAN CBC, BMP #### [facility] [address] [place] [address] Automated basophil countOrde red By: Ray Betancourt on 02-06-2023 Basophils (Bld) [#/Vol] 0.0 10*3/uL Normal 0.0-0.2 [facility] Comment on above: Order Comment: for m uscle spasms, I let the charge @rn, she is going to let rn lila huitronpls. Result Comment: PERF ORMED BY: [place] [address] PATHOLOGIST PROFESSIONAL TUTOR RENETTA MONACO M.D. Performed By: #### S CAN CBC, BMP #### [address] Automated blood monocyte cou ntOrdered By: Ray Betancourt on 02-06-2023 Monocytes (Bld) [#/Vol] 0.3 10*3/uL Normal 0.0-0.8 [facility] Comment on above: Order Comment: for m uscle spasms, I let the charge @rn, she is going to let rn lila huitron,pls. Performed By: #### S CAN CBC, BMP #### [address] Automated eosinophil %Ordere d By: Ray Betancourt on 02-06-2023 Eosinophils/100 WBC (Bld) 6.5 % Normal . [facility] Comment on above: Order Comment: for m uscle spasms, I let the charge @rn, she is going to let rn llia huitron,pls. Performed By: #### S CAN CBC, BMP #### [address] Automated eosinophil countOr dered By: Ray Betancourt on 02-06-2023 Eosinophils (Bld) [#/Vol] 0.2 10*3/uL Normal 0.0-0.45 [facility] Comment on above: Order Comment: for m uscle spasms, I let the charge @rn, she is going to let rn lila huitron,pls. Performed By: #### S CAN CBC, BMP #### [address] Automated monocyte %Ordered By: Tiannadanathaniel Floresomar on 02-06-2023 Monocytes/100 WBC (Bld) 10.1 % Normal . [facility] Comment on above: Order Comment: for wendy lambertcle spasms, I let the charge @rn, she is going to let rn lila huitronpls. Performed By: #### S CAN CBC, BMP #### [address] Automated neutrophil %Ordere d By: Tiannadanathaniel Daromar on 02-06-2023 Neutrophils/100 WBC (Bld) 31.0 % Normal . [facility] Comment on above: Order Comment: for wendy lambertcle spasms, I let the charge @rn, she is going to let rn lila huitronpls. Performed By: #### S CAN CBC, BMP #### [address] Basic Metabolic Panelon 01-26 Creatinine Clr Calc Pharmacy 87.63 Normal [facility] Comment on above: Order Comment: for wendy lambertcle spasms, I let the charge @rn, she is going to let rn lila huitronpls. Result Comment: PERF ORMED BY: [place] [address] PATHOLOGIST PROFESSIONAL TUTOR RENETTA MONACO M.D. Performed By: #### S CAN CBC, BMP #### [address] GFR/1.73 sq M.predicted MDRD (S/P/Bld) [Vol rate/Area] mL/min/{1.73_m2} Normal [facility] Comment on above: Order Comment: for wendy uscle spasms, I let the charge @rn, she is going to let rn lila huitronpls. Performed By: #### S CAN CBC, BMP #### [address] Calcium [Mass/volume] in Ser um or PlasmaOrdered By: Obbrandondanathaniel Floresomar on 02-06-2023 Calcium [Mass/Vol] 8.8 mg/dL Normal 8.6-10.3 [facility] Comment on above: Order Comment: for m uscle spasms, I let the charge @rn, she is going to let hany huitron pls. Performed By: #### S CAN CBC, BMP #### [facility] [address] Carbon dioxide, total [Moles /volume] in Serum or PlasmaOrdered By: Obbrandondanathaniel Daromar on 02-06-2023 CO2 [Moles/Vol] 24.9 mmol/L Normal 21.0-31.0 [facility] Comment on above: Order Comment: for m uscle spasms, I let the charge @rn, she is going to let hany huitronpls. Performed By: #### S CAN CBC, BMP #### [place] [address] [place] Chloride [Moles/volume] in S jennifer or PlasmaOrdered By: Obbrandondanathaniel Daromar on 02-06-2023 Chloride [Moles/Vol] 105 mmol/L Normal 98-107 [facility] Comment on above: Order Comment: for m uscle spasms, I let the charge @rn, she is going to let hany huitronpls. Performed By: #### S CAN CBC, BMP #### [facility] [address] [place] [address] [place] Creatinine [Mass/volume] in Serum or PlasmaOrdered By: Obbrandondanathaniel Floresomar on 02-06-2023 Creatinine [Mass/Vol] 0.84 mg/dL Normal 0.70-1.30 [facility] Comment on above: Order Comment: for m uscle spasms, I let the charge @rn, she is going to let hany huitronpls. Performed By: #### S CAN CBC, BMP #### [facility] [address] [place], [place] [id number] [place] Erythrocyte distribution wid th [Ratio] by Automated countOrdered By: Obbrandondanathaniel Floresomar on 02-06-2023 Erythrocyte distribution width (RBC) [Ratio] 14.8 % Normal 12.0-14.8 [facility] Comment on above: Order Comment: for wendy lambertcle spasms, I let the charge @rn, she is going to let hany huitronpls. Performed By: #### S CAN CBC, BMP #### [facility] [address] [id number] [place] Erythrocytes [#/volume] in B lood by Automated countOrdered By: Ray Gainesr on 02-06-2023 RBC (Bld) [#/Vol] 4.42 10*6/uL Normal 3.90-5.60 [facility] Comment on above: Order Comment: for wendy uscle spasms, I let the charge @rn, she is going to let hany huitronpls. Performed By: #### S CAN CBC, BMP #### [facility] [facility] [address] [place] [address] [place] Glucose [Mass/volume] in Ser um or PlasmaOrdered By: Ray Gainesr on 02-06-2023 Glucose [Mass/Vol] 125 mg/dL High 70-100 [facility] Comment on above: ADA recommended refe rence rangeRandom Glucose Reference Range is dependent on time and content of last meal. Glucose of more than 200 mg/dL in a nonstressed, ambulatory subject supports the diagnosis of Diabetes Mellitus. Order Comment: for wendy lambertcle spasms, I let the charge @rn, she is going to let hany huitronpls. Result Comment: [place] om Glucose Reference Range is dependent on time and content of last meal. Glucose of more than 200 mg/dL in a nonstressed, ambulatory subject supports the diagnosis of Diabetes Mellitus. ADA recommended reference range Performed By: #### S CAN CBC, BMP #### [facility] [address] [place] [id number] [place] Hematocrit [Volume Fraction] of Blood by Automated countOrdered By: Ray Floresomar on 02-06-2023 Hematocrit (Bld) [Volume fraction] 37.0 % Low 38.8-50.0 [facility] Comment on above: Order Comment: for wendy uscle spasms, I let the charge @rn, she is going to let rn lila know,pls. Performed By: #### S CAN CBC, BMP #### [facility] [address] [place] [id number] [place] Hemoglobin [Mass/volume] in BloodOrdered By: Obbrandondah Markomar on 02-06-2023 Hemoglobin (Bld) [Mass/Vol] 12.1 g/dL Low 13.0-17.0 [facility] Comment on above: Order Comment: for m uscle spasms, I let the charge @rn, she is going to let hany huitron,pls. Performed By: #### S CAN CBC, BMP #### [facility] [address] [place] [address] [place] Leukocytes [#/volume] correc mayte for nucleated erythrocytes in Blood by Automated counOrdered By: Tiannadanathaniel Floresomar on 02-06-2023 WBC corrected for nucl RBC Auto (Bld) [#/Vol] 2.7 10*3/uL 4.1-10.5 [facility] Leukocytes [#/volume] in Blo od by Automated countOrdered By: Tiannadanathaniel Floresomar on 02-06-2023 WBC (Bld) [#/Vol] 2.7 10*3/uL Low 4.1-10.5 [facility] Comment on above: Order Comment: for m uscle spasms, I let the charge @rn, she is going to let hany huitron,pls. Performed By: #### S CAN CBC, BMP #### [facility] [address] [place] [address] [place] Lymphocytes [#/volume] in Bl ood by Automated countOrdered By: Tiannadanathaniel Floresomar on 02-06-2023 Lymphocytes (Bld) [#/Vol] 1.4 10*3/uL Normal 1.00-4.8 [facility] Comment on above: Order Comment: for m uscle spasms, I let the charge @rn, she is going to let hany huitron,pls. Performed By: #### S CAN CBC, BMP #### [facility] [address] [place] [id number] [place] Lymphocytes/100 leukocytes i n Blood by Automated countOrdered By: Obbrandondah Markomar on 02-06-2023 Lymphocytes/100 WBC (Bld) 51.3 % Normal . [facility] Comment on above: Order Comment: for wendy uscle spasms, I let the charge @rn, she is going to let hany huitronpls. Performed By: #### S CAN CBC, BMP #### [address] MCH [Entitic mass] by Automa mayte countOrdered By: Ray Betancourt on 02-06-2023 MCH (RBC) [Entitic mass] 27.4 pg Low 27.5-35.2 [facility] Comment on above: Order Comment: for wendy uscle spasms, I let the charge @rn, she is going to let hany huitronpls. Performed By: #### S CAN CBC, BMP #### [address] MCHC Auto (RBC) [Mass/Vol]Or dered By: Ray Betancourt on 02-06-2023 MCHC (RBC) [Mass/Vol] 32.8 g/dL 32.5-35.6 [facility] MCV [Entitic volume] by Auto mated countOrdered By: Ray Betancourt on 02-06-2023 MCV (RBC) [Entitic vol] 83.5 fL Normal 83.5-101 [facility] Comment on above: Order Comment: for m uscle spasms, I let the charge @rn, she is going to let hany huitronpls. Performed By: #### S CAN CBC, BMP #### [place] [address] [place] Neutrophils [#/volume] in Bl ood by Automated countOrdered By: Ray Betancourt on 02-06-2023 Neutrophils (Bld) [#/Vol] 0.8 10*3/uL Low 1.8-7.7 [facility] Comment on above: Order Comment: for m uscle spasms, I let the charge @rn, she is going to let hany huitronpls. Performed By: #### S CAN CBC, BMP #### [facility] [address] No Panel InformationOrdered By: Ray Floresomar on 02-06-2023 Estimated GFR (CKD-EPI) > 60.0 mL/Min [facility] Creatinine Clearance (Chem 87.63 [facility] Nucleated erythrocytes [Pres ence] in Blood by Automated countOrdered By: Ray Floresomar on 02-06-2023 Nucleated RBC Auto Ql (Bld) 0.3 /100{WBC} 0-0.5 [facility] Platelet adequacy [Presence] in Blood by Light microscopyOrdered By: Ray Floresomar on 02-06-2023 Platelets LM Ql (Bld) Normal Normal [facility] Platelet mean volume [Entiti c volume] in Blood by Automated countOrdered By: Ray Floresomar on 02-06-2023 Platelet mean volume (Bld) [Entitic vol] 7.2 fL Normal 6.6-10.1 [facility] Comment on above: Order Comment: for wendy nelson spasms, I let the charge @rn, she is going to let hany huitron,pls. Performed By: #### S CAN CBC, BMP #### [facility] [address] Platelet morphology finding [Identifier] in BloodOrdered By: Ray Floresomar on 02-06-2023 Platelet morphology finding Nom (Bld) Normal Normal [facility] Platelets [#/volume] in Bloo d by Automated countOrdered By: Ray Floresomar on 02-06-2023 Platelets (Bld) [#/Vol] 277 10*3/uL Normal 150-450 [facility] Comment on above: Order Comment: for wendy nelson spasms, I let the charge @rn, she is going to let hany huitron,pls. Performed By: #### S CAN CBC, BMP #### [facility] [address] Potassium [Moles/volume] in Serum or PlasmaOrdered By: Tiannadanathaniel Floresomar on 02-06-2023 Potassium [Moles/Vol] 4.3 mmol/L Normal 3.5-5.1 [facility] Comment on above: Order Comment: for m uscle spasms, I let the charge @rn, she is going to let rn lila know,pls. Performed By: #### S CAN CBC, BMP #### [address] RBC morphologyOrdered By: Yash Betancourt on 02-06-2023 RBC morphology finding Nom (Bld) Normal Normal Normal [facility] Comment on above: Order Comment: for m uscle spasms, I let the charge @rn, she is going to let rn lila know,pls. Performed By: #### S CAN CBC, BMP #### [address] Scan and CBCon 02-06-2023 Mean Corpuscular HGB Conc 32.8 g/dL Normal 32.5-35.6 [facility] Comment on above: Order Comment: for m uscle spasms, I let the charge @rn, she is going to let rn lila know,pls. Performed By: #### S CAN CBC, BMP #### [address] NRBC% 0.3 /100{WBC} Normal 0-0.5 [facility] Comment on above: Order Comment: for m uscle spasms, I let the charge @rn, she is going to let rn lila know,pls. Performed By: #### S CAN CBC, BMP #### [address] Platelet Estimate Normal Normal Normal [facility] Comment on above: Order Comment: for m uscle spasms, I let the charge @rn, she is going to let rn lila know,pls. Performed By: #### S CAN CBC, BMP #### [address] Platelet Morphology Normal Normal Normal [facility] Comment on above: Order Comment: for m uscle spasms, I let the charge @rn, she is going to let hany huitron pls. Result Comment: PERF ORMED BY: [place] [address] PATHOLOGIST PROFESSIONAL TUTOR RENETTA MONACO M.D. Performed By: #### S CAN CBC, BMP #### [address] Serum or plasma anion gap de terminationOrdered By: Obaydah Daromar on 02-06-2023 Anion gap [Moles/Vol] 8.4 mmol/L Normal 6.0-15.0 [facility] Comment on above: Order Comment: for m uscle spasms, I let the charge @rn, she is going to let hany huitron pls. Performed By: #### S CAN CBC, BMP #### [address] Sodium [Moles/volume] in Ser um or PlasmaOrdered By: Obaydah Daromar on 02-06-2023 Sodium [Moles/Vol] 134 mmol/L Low 136-145 [facility] Comment on above: Order Comment: for m uscle spasms, I let the charge @rn, she is going to let rn lila huitronpls. Performed By: #### S CAN CBC, BMP #### [address] Urea nitrogen [Mass/volume] in Serum or PlasmaOrdered By: Obaydah Daromar on 02-06-2023 Urea nitrogen [Mass/Vol] 11 mg/dL Normal 7-25 [facility] Comment on above: Order Comment: for m uscle spasms, I let the charge @rn, she is going to let rn lila huitronpls. Performed By: #### S CAN CBC, BMP #### [address] Alanine aminotransferase [En zymatic activity/volume] in Serum or PlasmaOrdered By: Obaydah Daromar on 02-05-2023 ALT [Catalytic activity/Vol] 5 U/L Low 7-52 [facility] Comment on above: Performed By: #### C UU, ADDONUAPLUS #### [facility] [address] [place] [address] [place] Albumin [Mass/volume] in Ser um or Plasma by Bromocresol green (BCG) dye binding methoOrdered By: Obbrandondanathaniel Floresomar on 02-05-2023 Albumin BCG dye [Mass/Vol] 3.7 g/dL 3.5-5.7 [facility] Alkaline phosphatase [Enzyma tic activity/volume] in Serum or PlasmaOrdered By: Obaydah Daromar on 02-05-2023 ALP [Catalytic activity/Vol] 43 U/L Normal 34-104 [facility] Comment on above: Performed By: #### C UU, ADDONUAPLUS #### [address] Aspartate aminotransferase [ Enzymatic activity/volume] in Serum or PlasmaOrdered By: Obbrandondanathaniel Floresomar on 02-05-2023 AST [Catalytic activity/Vol] 10 U/L Low 13-39 [facility] Comment on above: Performed By: #### C UU, ADDONUAPLUS #### [address] Bilirubin.total [Mass/volume ] in Serum or PlasmaOrdered By: Obbrandondanathaniel Floresomar on 02-05-2023 Bilirubin [Mass/Vol] 0.4 mg/dL Normal 0.3-1.0 [facility] Comment on above: Performed By: #### C UU, ADDONUAPLUS #### [address] Complete Blood Count Auto Di ffon 02-05-2023 Basophils (Bld) [#/Vol] 0.0 10*3/uL Normal 0.0-0.2 [facility] Comment on above: Result Comment: PERF ORMED BY: [place] [address] PATHOLOGIST PROFESSIONAL TUTOR RENETTA MONACO M.D. Performed By: #### C UU, ADDONUAPLUS #### [address] Basophils/100 WBC (Bld) 1.0 % Normal . T lillian [facility] Comment on above: Performed By: #### C UU, ADDONUAPLUS #### [address] Eosinophils (Bld) [#/Vol] 0.2 10*3/uL Normal 0.0-0.45 [facility] Comment on above: Performed By: #### C UU, ADDONUAPLUS #### [address] Eosinophils/100 WBC (Bld) 7.1 % Normal . [facility] Comment on above: Performed By: #### C UU, ADDONUAPLUS #### [address] Erythrocyte distribution width (RBC) [Ratio] 14.8 % Normal 12.0-14.8 [facility] Comment on above: Performed By: #### C UU, ADDONUAPLUS #### [address] Hematocrit (Bld) [Volume fraction] 35.5 % Low 38.8-50.0 [facility] Comment on above: Performed By: #### C UU, ADDONUAPLUS #### [address] Hemoglobin (Bld) [Mass/Vol] 11.7 g/dL Low 13.0-17.0 [facility] Comment on above: Performed By: #### C UU, ADDONUAPLUS #### [place] [address] [place] Lymphocytes (Bld) [#/Vol] 1.4 10*3/uL Normal 1.00-4.8 [facility] Comment on above: Performed By: #### C UU, ADDONUAPLUS #### [address] Lymphocytes/100 WBC (Bld) 44.0 % Normal . [facility] Comment on above: Performed By: #### C UU, ADDONUAPLUS #### [address] MCH (RBC) [Entitic mass] 27.5 pg Normal 27.5-35.2 [facility] Comment on above: Performed By: #### C UU, ADDONUAPLUS #### [address] MCV (RBC) [Entitic vol] 83.0 fL Low 83.5-101 [facility] Comment on above: Performed By: #### C UU, ADDONUAPLUS #### [address] Mean Corpuscular HGB Conc 33.1 g/dL Normal 32.5-35.6 [facility] Comment on above: Performed By: #### C UU, ADDONUAPLUS #### [address] Monocytes (Bld) [#/Vol] 0.3 10*3/uL Normal 0.0-0.8 [facility] Comment on above: Performed By: #### C UU, ADDONUAPLUS #### [address] Monocytes/100 WBC (Bld) 8.1 % Normal . [facility] Comment on above: Performed By: #### C UU, ADDONUAPLUS #### [address] Neutrophils (Bld) [#/Vol] 1.2 10*3/uL Low 1.8-7.7 [facility] Comment on above: Performed By: #### C UU, ADDONUAPLUS #### [address] Neutrophils/100 WBC (Bld) 39.8 % Normal . [facility] Comment on above: Performed By: #### C UU, ADDONUAPLUS #### [address] NRBC% 0.1 /100{WBC} Normal 0-0.5 [facility] Comment on above: Performed By: #### C UU, ADDONUAPLUS #### [address] Platelet mean volume (Bld) [Entitic vol] 7.5 fL Normal 6.6-10.1 [facility] Comment on above: Performed By: #### C UU, ADDONUAPLUS #### [address] Platelets (Bld) [#/Vol] 318 10*3/uL Normal 150-450 [facility] Comment on above: Performed By: #### C UU, ADDONUAPLUS #### [address] RBC (Bld) [#/Vol] 4.27 10*6/uL Normal 3.90-5.[address] [facility] Comment on above: Performed By: #### C UU, ADDONUAPLUS #### [address] WBC (Bld) [#/Vol] 3.1 10*3/uL Low 4.1-10.5 [facility] Comment on above: Performed By: #### C UU, ADDONUAPLUS #### [address] Comprehensive Metabolic Pane [facility] 02-05-2023 Albumin [Mass/Vol] 3.7 g/dL Normal 3.5-5.7 [facility] Comment on above: Performed By: #### C UU, ADDONUAPLUS #### [address] Anion gap [Moles/Vol] 8.1 mmol/L Normal 6.0-15.0 [facility] Comment on above: Performed By: #### C UU, ADDONUAPLUS #### [address] Calcium [Mass/Vol] 8.9 mg/dL Normal 8.6-10.3 [facility] Comment on above: Performed By: #### C UU, ADDONUAPLUS #### [facility] [address] [place] [address] [place] Chloride [Moles/Vol] 106 mmol/L Normal 98-107 [facility] Comment on above: Performed By: #### C UU, ADDONUAPLUS #### [facility] [address] [place] [address] [place] CO2 [Moles/Vol] 27.0 mmol/L Normal 21.0-31.0 [facility] Comment on above: Performed By: #### C UU, ADDONUAPLUS #### [facility] [address] [place] [address] [place] Creatinine [Mass/Vol] 0.78 mg/dL Normal 0.70-1.30 [facility] Comment on above: Performed By: #### C UU, ADDONUAPLUS #### [place] [address] [place] Creatinine Clr Calc Pharmacy 93.66 Normal [facility] Comment on above: Result Comment: PERF ORMED BY: [place] [address] PATHOLOGIST PROFESSIONAL TUTOR RENETTA MONACO M.D. Performed By: #### C UU, ADDONUAPLUS #### [place] [address] [place] GFR/1.73 sq M.predicted MDRD (S/P/Bld) [Vol rate/Area] mL/min/{1.73_m2} Normal [facility] Comment on above: Performed By: #### C UU, ADDONUAPLUS #### [place] [address] [place] Glucose [Mass/Vol] 98 mg/dL Normal 70-100 [facility] Comment on above: Result Comment: [place] Glucose Reference Range is dependent on time and content of last meal. Glucose of more than 200 mg/dL in a nonstressed, ambulatory subject supports the diagnosis of Diabetes Mellitus. ADA recommended reference range Performed By: #### C UU, ADDONUAPLUS #### [facility] [address] [place] [address] Potassium [Moles/Vol] 4.1 mmol/L Normal 3.5-5.1 [facility] Comment on above: Performed By: #### C UU, ADDONUAPLUS #### [address] Sodium [Moles/Vol] 137 mmol/L Normal 136-145 [facility] Comment on above: Performed By: #### C UU, ADDONUAPLUS #### [address] Urea nitrogen [Mass/Vol] 9 mg/dL Normal 7-25 [facility] Comment on above: Performed By: #### C UU, ADDONUAPLUS #### [address] Protein [Mass/volume] in Ser um or PlasmaOrdered By: Obaydah Daromar on 02-05-2023 Protein [Mass/Vol] 6.3 g/dL Low 6.4-8.9 [facility] Comment on above: Performed By: #### C UU, ADDONUAPLUS #### [facility] [address] [place] [address] Serum globulin measurement b y calculation (mass/volume)Ordered By: Obaydah Daromar on 02-05-2023 Globulin (S) [Mass/Vol] 2.6 g/dL Normal [facility] Comment on above: Performed By: #### C UU, ADDONUAPLUS #### [facility] [address] [place] [address] Serum or plasma albumin/glob ulin mass ratioOrdered By: Obaydah Daromar on 02-05-2023 Albumin/Globulin [Mass ratio] 1.4 {ratio} Normal [facility] Comment on above: Performed By: #### C UU, ADDONUAPLUS #### [facility] [address] [place] [address] Automated basophil %Ordered By: Christin Manzanares on 02-03-2023 Basophils/100 WBC (Bld) 0.6 % Normal . [facility] Comment on above: Performed By: #### C BC, BMP #### [address] Automated basophil countOrde red By: Christin Manzanares on 02-03-2023 Basophils (Bld) [#/Vol] 0.0 10*3/uL Normal 0.0-0.2 [facility] Comment on above: Result Comment: PERF ORMED BY: [place] [address] PATHOLOGIST PROFESSIONAL TUTOR RENETTA MONACO M.D. Performed By: #### C BC, BMP #### [address] Automated blood monocyte cou ntOrdered By: Christin Manzanares on 02-03-2023 Monocytes (Bld) [#/Vol] 0.5 10*3/uL Normal 0.0-0.8 [facility] Comment on above: Performed By: #### C BC, BMP #### [address] Automated eosinophil %Ordere d By: Christin Manzanares on 02-03-2023 Eosinophils/100 WBC (Bld) 4.0 % Normal . [facility] Comment on above: Performed By: #### C BC, BMP #### [address] Automated eosinophil countOr dered By: Christin Manzanares on 02-03-2023 Eosinophils (Bld) [#/Vol] 0.2 10*3/uL Normal 0.0-0.45 [facility] Comment on above: Performed By: #### C BC, BMP #### [address] Automated epithelial cells c ount in urine sediment (number/area)Ordered By: Christin Manzanares on 02-03-2023 Epithelial cells Auto (Urine sed) [#/Area] 0-1 [HPF] 0-2 [facility] Automated erythrocytes count in urine sediment (number/area)Ordered By: Christin Manzanares on 02-03-2023 RBC Auto (Urine sed) [#/Area] 5-9 [HPF] 0-4 [facility] Automated leukocytes count i n urine sediment (number/area)Ordered By: Christin Manzanares on 02-03-2023 WBC Auto (Urine sed) [#/Area] 20-49 [HPF] 0-4 [facility] Automated monocyte %Ordered By: Christni Manzanares on 02-03-2023 Monocytes/100 WBC (Bld) 8.1 % Normal . [facility] Comment on above: Performed By: #### C BC, BMP #### [facility] [address] [place] [address] Automated neutrophil %Ordere d By: Christin Manzanares on 02-03-2023 Neutrophils/100 WBC (Bld) 58.6 % Normal . [facility] Comment on above: Performed By: #### C BC, BMP #### [facility] [address] [place] [address] Automated urine color determ inationOrdered By: Christin Manzanares on 02-03-2023 Color (U) Yellow Normal Yellow [facility] Comment on above: Order Comment: Name Collection Type:: Hernandez Catheter Performed By: #### C UU, ADDONUAPLUS #### [facility] [address] [place] [address] Automated urine hyaline cast s count (number/volume)Ordered By: Christin Manzanares on 02-03-2023 Hyaline casts Auto (U) [#/Vol] None seen [LPF] 0-1 [facility] Automated urine sediment alice cium oxalate crystal count by microscopy (number/high powOrdered By: Christin Manzanares on 02-03-2023 Calcium oxalate crystals LM.HPF (Urine sed) [#/Area] Rare [HPF] [facility] Basic Metabolic Panelon Creatinine Clr Calc Pharmacy 95.43 Normal [facility] Comment on above: Result Comment: PERF ORMED BY: [place] [address] PATHOLOGIST PROFESSIONAL TUTOR RENETTA MONACO M.D. Performed By: #### C BC, BMP #### [facility] [address] [place] [id number] [place] GFR/1.73 sq M.predicted MDRD (S/P/Bld) [Vol rate/Area] mL/min/{1.73_m2} Normal [facility] Comment on above: Performed By: #### C BC, BMP #### [address] Bilirubin Test strip Ql (U)O rdered By: Christin Manzanares on 02-03-2023 Bilirubin Ql (U) Negative Negative [facility] CNOVon 02-03-2023 CNOV Normal [facility] CT abdomen pelvis wo conon 1 04-05-2022 CT abdomen pelvis wo con [facility] [place] [address] [place] [address] CT Scan Report Signed Patient: Shanialy,Fede Drew SR MR#: [id number] : 1955 Acct:[id number] Age/Sex: 67 / M ADM Date: 02/03/23 Loc: ER Room: Type: [facility] ER Attending Dr: Copies to: Christin [...] Christie Durán M.D.02/03/2023 8:36 PM Dictation Location: [place] [address] Transcribed By: [facility] 02/03/232035 Dictated By: Christie Durán MD 02/03/232026 Signed By: 02/03/232035 Normal [facility] Calcium [Mass/volume] in Ser um or PlasmaOrdered By: Christin Manzanares on 02-03-2023 Calcium [Mass/Vol] 9.0 mg/dL Normal 8.6-10.3 [facility] Comment on above: Performed By: #### C PETEY, BMP #### [facility] [address] [place] [address] Carbon dioxide, total [Moles /volume] in Serum or PlasmaOrdered By: Christin Manzanares on 02-03-2023 CO2 [Moles/Vol] 25.3 mmol/L Normal 21.0-31.0 [facility] Comment on above: Performed By: #### C PETEY, BMP #### [facility] [address] [place] [address] [place] Chloride [Moles/volume] in S jennifer or PlasmaOrdered By: Christin Manzanares on 02-03-2023 Chloride [Moles/Vol] 108 mmol/L High 98-107 [facility] Comment on above: Performed By: #### C BC, BMP #### [address] Complete Blood Count Auto Di ffon 02-03-2023 Mean Corpuscular HGB Conc 33.1 g/dL Normal 32.5-35.6 [facility] Comment on above: Performed By: #### C BC, BMP #### [address] Monocytes/100 WBC (Bld) 19.15 % Normal 0.00-20.00 [facility] Comment on above: Performed By: #### C BC, BMP #### [address] NRBC% 0.1 /100{WBC} Normal 0-0.5 [facility] Comment on above: Performed By: #### C BC, BMP #### [address] Creatinine [Mass/volume] in Serum or PlasmaOrdered By: Christin Manzanares on 02-03-2023 Creatinine [Mass/Vol] 0.70 mg/dL Normal 0.70-1.30 [facility] Comment on above: Performed By: #### C BC, BMP #### [address] Dipstick and Microscopicon 1 04-05-2022 Appearance (U) Clear Normal Clear [facility] Comment on above: Order Comment: Name Collection Type:: Hernandez Catheter Performed By: #### C UU, ADDONUAPLUS #### [place] [address] [place] Bacteria,Urine 4+ High None Seen [facility] Comment on above: Order Comment: Name Collection Type:: Hernandez Catheter Performed By: #### C UU, ADDONUAPLUS #### [place] [address] [place] Bilirubin,Urine Negative Normal Negative [facility] Comment on above: Order Comment: Name Collection Type:: Hernandez Catheter Performed By: #### C UU, ADDONUAPLUS #### [address] Calcium Oxalate Crystals,Urine Rare Normal [facility] Comment on above: Order Comment: Name Collection Type:: Hernandez Catheter Performed By: #### C UU, ADDONUAPLUS #### [address] Glucose Ql (U) Normal Normal Normal [facility] Comment on above: Order Comment: Name Collection Type:: Hernandez Catheter Performed By: #### C UU, ADDONUAPLUS #### [address] Hyaline Casts,Urine None Seen Normal 0-1 [facility] Comment on above: Order Comment: Name Collection Type:: Hernandez Catheter Result Comment: PERF ORMED BY: [place] [address] PATHOLOGIST PROFESSIONAL TUTOR RENETTA MONACO M.D. Performed By: #### C UU, ADDONUAPLUS #### [address] Ketones Ql (U) Negative Normal Negative [facility] Comment on above: Order Comment: Name Collection Type:: Hernandez Catheter Performed By: #### C UU, ADDONUAPLUS #### [address] Leukocyte esterase Test strip Ql (U) 4+ High Negative [facility] Comment on above: Order Comment: Name Collection Type:: Hernandez Catheter Performed By: #### C UU, ADDONUAPLUS #### [place] [address] [place] Nitrite,Urine Positive High Negative [facility] Comment on above: Order Comment: Name Collection Type:: Hernandez Catheter Performed By: #### C UU, ADDONUAPLUS #### [place] [address] [place] Occult Blood,Urine 1+ High Negative [facility] Comment on above: Order Comment: Name Collection Type:: Hernandez Catheter Result Comment: PERF ORMED BY: [place] [address] PATHOLOGIST PROFESSIONAL TUTOR RENETTA MONACO M.D. Performed By: #### C UU, ADDONUAPLUS #### [address] Protein,Urine Negative Normal Negative [facility] Comment on above: Order Comment: Name Collection Type:: Hernandez Catheter Performed By: #### C UU, ADDONUAPLUS #### [address] RBC,Urine 5-9 High 0-4 [facility] Comment on above: Order Comment: Name Collection Type:: Hernandez Catheter Performed By: #### C UU, ADDONUAPLUS #### [address] Specificy [place],Urine 1.005 Normal 1.001-1.030 [facility] Comment on above: Order Comment: Name Collection Type:: Hernandez Catheter Performed By: #### C UU, ADDONUAPLUS #### [address] Squamous Epithelial Cell,Urine 0-1 Normal 0-2 [facility] Comment on above: Order Comment: Name Collection Type:: Hernandez Catheter Performed By: #### C UU, ADDONUAPLUS #### [address] Urobilinogen,Urine Normal Normal Normal [facility] Comment on above: Order Comment: Name Collection Type:: Hernandez Catheter Performed By: #### C UU, ADDONUAPLUS #### [place] [address] [place] WBC,Urine 20-49 High 0-4 [facility] Comment on above: Order Comment: Name Collection Type:: Hernandez Catheter Performed By: #### C UU, ADDONUAPLUS #### [address] ECG 12 lead ECGon 02-03-2023 ECG 12 lead ECG [facility] [place] [address] [place] [address] Electrocardiograph Report Signed Patient: Fede Guerra SR MR#: [id number] : 1955 Acct:[id number] Age/Sex: 67 / M ADM Date: 02/03/23 Loc: ER Room: Type: [facility] ER Attending Dr: Ordering Provider: Christin [...] Sinus tachycardia Confirmed by Leighton OAKLEY DO ([id number]) on 02/03/2023 8:08:15 PM Referred By: Electronically Signed By:Leighton OAKLEY DO Transcribed By: MUS Signed By Leighton Oakley DO 1 04/05/222007 Normal [facility] Erythrocyte distribution wid th [Ratio] by Automated countOrdered By: Christin Manzanares on 02-03-2023 Erythrocyte distribution width (RBC) [Ratio] 14.5 % Normal 12.0-14.8 [facility] Comment on above: Performed By: #### C PETEY, BMP #### [facility] [address] [place] [address] [place] Erythrocytes [#/volume] in B lood by Automated countOrdered By: Christin Manzanares on 02-03-2023 RBC (Bld) [#/Vol] 4.40 10*6/uL Normal 3.90-5.60 [facility] Comment on above: Performed By: #### C PETEY, BMP #### [facility] [address] [place] [address] Glucose [Mass/volume] in Ser um or PlasmaOrdered By: Christin Manzanares on 02-03-2023 Glucose [Mass/Vol] 115 mg/dL High 70-100 [facility] Comment on above: ADA recommended refe rence rangeRandom Glucose Reference Range is dependent on time and content of last meal. Glucose of more than 200 mg/dL in a nonstressed, ambulatory subject supports the diagnosis of Diabetes Mellitus. Result Comment: [place] om Glucose Reference Range is dependent on time and content of last meal. Glucose of more than 200 mg/dL in a nonstressed, ambulatory subject supports the diagnosis of Diabetes Mellitus. ADA recommended reference range Performed By: #### C BC, BMP #### [address] Hematocrit [Volume Fraction] of Blood by Automated countOrdered By: Christin Manzanares on 02-03-2023 Hematocrit (Bld) [Volume fraction] 36.4 % Low 38.8-50.0 [facility] Comment on above: Performed By: #### C BC, BMP #### [address] Hemoglobin [Mass/volume] in BloodOrdered By: Christin Manzanares on 02-03-2023 Hemoglobin (Bld) [Mass/Vol] 12.0 g/dL Low 13.0-17.0 [facility] Comment on above: Performed By: #### C BC, BMP #### [address] Ketones Auto test strip (U) [Mass/Vol]Ordered By: Christin Manzanares on 02-03-2023 Ketones (U) [Mass/Vol] Negative Negative [facility] Lactate [Moles/volume] in Se rum or PlasmaOrdered By: Christin Manzanares on 02-03-2023 Lactate [Moles/Vol] 0.8 mmol/L Normal 0.5-2.2 [facility] Comment on above: Result Comment: PERF ORMED BY: [place] [address] PATHOLOGIST PROFESSIONAL TUTOR RENETTA MONACO M.D. Performed By: #### C UU, ADDONUAPLUS #### [address] Leukocytes [#/volume] correc mayte for nucleated erythrocytes in Blood by Automated counOrdered By: Christin Manzanares on 02-03-2023 WBC corrected for nucl RBC Auto (Bld) [#/Vol] 6.1 10*3/uL 4.1-10.5 [facility] Leukocytes [#/volume] in Blo od by Automated countOrdered By: Christin Manzanares on 02-03-2023 WBC (Bld) [#/Vol] 6.1 10*3/uL Normal 4.1-10.5 [facility] Comment on above: Performed By: #### C BC, BMP #### [facility] [address] [place] [address] [place] Lymphocytes [#/volume] in Bl ood by Automated countOrdered By: Christin Manzanares on 02-03-2023 Lymphocytes (Bld) [#/Vol] 1.8 10*3/uL Normal 1.00-4.8 [facility] Comment on above: Performed By: #### C BC, BMP #### [facility] [address] [place] [address] Lymphocytes/100 leukocytes i n Blood by Automated countOrdered By: Christin Manzanares on 02-03-2023 Lymphocytes/100 WBC (Bld) 28.7 % Normal . [facility] Comment on above: Performed By: #### C BC, BMP #### [address] MCH [Entitic mass] by Automa mayte countOrdered By: Christin Manzanares on 02-03-2023 MCH (RBC) [Entitic mass] 27.4 pg Low 27.5-35.2 [facility] Comment on above: Performed By: #### C BC, BMP #### [facility] [address] [place] [address] MCHC Auto (RBC) [Mass/Vol]Or dered By: Christin Manzanares on 02-03-2023 MCHC (RBC) [Mass/Vol] 33.1 g/dL 32.5-35.6 [facility] MCV [Entitic volume] by Auto mated countOrdered By: Christin Manzanares on 02-03-2023 MCV (RBC) [Entitic vol] 82.8 fL Low 83.5-101 [facility] Comment on above: Performed By: #### C BC, BMP #### [facility] [address] Monocyte distribution width [Entitic volume] in Blood by AutomatedOrdered By: Christin Manzanares on 02-03-2023 Monocyte distribution width Auto (Bld) [Entitic vol] 19.15 % 0.00-20.00 [facility] Neutrophils [#/volume] in Bl ood by Automated countOrdered By: Christin Manzanares on 02-03-2023 Neutrophils (Bld) [#/Vol] 3.6 10*3/uL Normal 1.8-7.7 [facility] Comment on above: Performed By: #### C BC, BMP #### [address] Nitrite Test strip Ql (U)Ord ered By: Christin Manzanares on 02-03-2023 Nitrite Ql (U) Positive Negative [facility] No Panel InformationOrdered By: Christin Manzanares on 02-03-2023 Estimated GFR (CKD-EPI) > 60.0 mL/Min [facility] Creatinine Clearance (Chem 95.43 [facility] Nucleated erythrocytes [Pres ence] in Blood by Automated countOrdered By: Christin Manzanares on 02-03-2023 Nucleated RBC Auto Ql (Bld) 0.1 /100{WBC} 0-0.5 [facility] Platelet mean volume [Entiti c volume] in Blood by Automated countOrdered By: Christin Manzanares on 02-03-2023 Platelet mean volume (Bld) [Entitic vol] 7.1 fL Normal 6.6-10.1 [facility] Comment on above: Performed By: #### C BC, BMP #### [facility] [address] [place] [address] Platelets [#/volume] in Bloo d by Automated countOrdered By: Christin Manzanares on 02-03-2023 Platelets (Bld) [#/Vol] 307 10*3/uL Normal 150-450 [facility] Comment on above: Performed By: #### C BC, BMP #### [place] [id number] [place] Potassium [Moles/volume] in Serum or PlasmaOrdered By: Christin Manzanares on 02-03-2023 Potassium [Moles/Vol] 4.0 mmol/L Normal 3.5-5.1 [facility] Comment on above: Performed By: #### C PETEY, BMP #### [address] Protein Auto test strip (U) [Mass/Vol]Ordered By: Christin Manzanares on 02-03-2023 Protein (U) [Mass/Vol] Negative Negative [facility] Serum or plasma anion gap de terminationOrdered By: Christin Manzanares on 02-03-2023 Anion gap [Moles/Vol] 8.7 mmol/L Normal 6.0-15.0 [facility] Comment on above: Performed By: #### C PETEY, BMP #### [address] Sodium [Moles/volume] in Ser um or PlasmaOrdered By: Christin Manzanares on 02-03-2023 Sodium [Moles/Vol] 138 mmol/L Normal 136-145 [facility] Comment on above: Performed By: #### C PETEY, BMP #### [address] Specific gravity Auto test s trip (U) [Rel density]Ordered By: Christin Manzanares on 02-03-2023 Specific gravity (U) [Rel density] 1.005 1.001-1.030 [facility] Urea nitrogen [Mass/volume] in Serum or PlasmaOrdered By: Christin Manzanares on 02-03-2023 Urea nitrogen [Mass/Vol] 11 mg/dL Normal 7-25 [facility] Comment on above: Performed By: #### C PETEY, BMP #### [address] Urine Cultureon 02-03-2023 Bacteria identified Cx Nom (U) ORGANISM: Klebsiella pneumoniae (ESBL) (O:KLEPNEESBL) [place] Count >100,000 Aerobic SCOTT Charge ([id number]) ----- SUSCEPTIBILITY ---- ORGANISM: O:FATIMAHDEVANTESHARLENE ANTIBIOTIC INTERPRETATION SCOTT Amikacin S <16 Amoxacillin/K [...] RESISTANT TO ALL B-LACTAM DRUGS. PERFORMED BY: [place] [address] PATHOLOGIST PROFESSIONAL TUTOR RENETTA MONACO M.D. Normal [facility] Comment on above: Performed By: #### C ChelleU, ADDNICOLE #### [address] Urine bacteria detection by automated methodOrdered By: Christin Manzanares on 02-03-2023 Bacteria Auto Ql (U) 4+ None Seen [facility] Urine clarity by refractomet ry automatedOrdered By: Christin Manzanares on 02-03-2023 Clarity Refractometry automated (U) Clear Clear [facility] Urine culture routineOrdered By: Christin Manzanares on 02-03-2023 Bacteria identified Cx Nom (U) Klebsiella pneumoniae (ESBL) [facility] Urine glucose measurement by automated test strip (mass/volume)Ordered By: Christin Manzanares on 02-03-2023 Glucose Auto test strip (U) [Mass/Vol] Normal mg/dL Normal [facility] Urine hemoglobin detection b y automated test stripOrdered By: Christin Manzanares on 02-03-2023 Hemoglobin Auto test strip Ql (U) 1+ Negative [facility] Urine leukocyte esterase det ection by automated test stripOrdered By: Christin Manzanares on 02-03-2023 Leukocyte esterase Auto test strip Ql (U) 4+ Negative [facility] Urine pH measurement by auto mated test stripOrdered By: Christin Manzanares on 02-03-2023 pH (U) 6.5 [pH] Normal 5.0-9.0 [facility] Comment on above: Order Comment: Name Collection Type:: Hernandez Catheter Performed By: #### C UU, ADDONUAPLUS #### [address] Urobilinogen Auto test strip (U) [Mass/Vol]Ordered By: Christin Manzanares on 02-03-2023 Urobilinogen (U) [Mass/Vol] Normal mg/dL Normal [facility] Bacteria Ur Culton Bacteria identified Cx Nom (U) Abnormal [facility] Comment on above: Performed By: #### 6 30-4 ####[facility] LABCLIA [id number] [place] [address] [place] CNOVon 01-10-2023 CNOV Normal [facility] CNPNon 12-23-2022 CNPN Normal [facility] CNOVon 12-16-2022 CNOV Normal [facility] CNPTOUTREACHon 12-16-2022 CNPTOUTREACH Normal [facility] US KIDNEY/BLADDERon 12-17-19 US KIDNEY/BLADDER Normal [facility] XR ABDOMEN 3V KUB W/OBLIQUES on 12-16-2022 XR ABDOMEN 3V KUB W/OBLIQUES Normal [facility] Amorphous urine sedimentOrde red By: Jun Gaona on 12-07-2022 Amorphous sediment LM Ql (Urine sed) 3+ [LPF] [facility] Automated basophil %Ordered By: Jun Gaona on 12-07-2022 Basophils/100 WBC (Bld) 1.5 % Normal . [facility] Comment on above: Performed By: #### A ERC #### [address] Automated basophil countOrde red By: Jun Gaona on 12-07-2022 Basophils (Bld) [#/Vol] 0.1 10*3/uL Normal 0.0-0.2 [facility] Comment on above: Result Comment: PERF ORMED BY: [place] [address] PATHOLOGIST PROFESSIONAL TUTOR RENETTA MONACO M.D. Performed By: #### A ERC #### [address] Automated blood monocyte cou ntOrdered By: Jun Gaona on 12-07-2022 Monocytes (Bld) [#/Vol] 0.3 10*3/uL Normal 0.0-0.8 [facility] Comment on above: Performed By: #### A ERC #### [address] Automated eosinophil %Ordere d By: Jun Gaona on 12-07-2022 Eosinophils/100 WBC (Bld) 7.5 % Normal . [facility] Comment on above: Performed By: #### A ERC #### [address] Automated eosinophil countOr dered By: Jun Gaona on 12-07-2022 Eosinophils (Bld) [#/Vol] 0.3 10*3/uL Normal 0.0-0.45 [facility] Comment on above: Performed By: #### A ERC #### [address] Automated epithelial cells c ount in urine sediment (number/area)Ordered By: Jun Gaona on 12-07-2022 Epithelial cells Auto (Urine sed) [#/Area] 1-2 [HPF] 0-2 [facility] Automated erythrocytes count in urine sediment (number/area)Ordered By: Jun Gaona on 12-07-2022 RBC Auto (Urine sed) [#/Area] 3-4 [HPF] 0-4 [facility] Automated leukocytes count i n urine sediment (number/area)Ordered By: Jun Gaona on 12-07-2022 WBC Auto (Urine sed) [#/Area] Innumerable [HPF] 0-4 [facility] Automated monocyte %Ordered By: Jun Gaona on 12-07-2022 Monocytes/100 WBC (Bld) 6.9 % Normal . [facility] Comment on above: Performed By: #### A ERC #### [address] Automated neutrophil %Ordere d By: Jun Gaona on 12-07-2022 Neutrophils/100 WBC (Bld) 46.8 % Normal . [facility] Comment on above: Performed By: #### A ERC #### [address] Automated urine color determ inationOrdered By: Jun Gaona on 12-07-2022 Color (U) Yellow Normal Yellow [facility] Comment on above: Order Comment: for m uscle spasms, I let the charge @rn, she is going to let rn lila know,pls. Performed By: #### S CAN CBC, BMP #### [facility] [address] [place] [address] Automated urine hyaline cast s count (number/volume)Ordered By: Jun Gaona on 12-07-2022 Hyaline casts Auto (U) [#/Vol] None seen [LPF] 0-1 [facility] Automated urine sediment alice cium oxalate crystal count by microscopy (number/high powOrdered By: Jun Gaona on 12-07-2022 Calcium oxalate crystals LM.HPF (Urine sed) [#/Area] 1+ [HPF] [facility] Basic Metabolic Panelon 11-26 Creatinine Clr Calc Pharmacy 89.68 Normal [facility] Comment on above: Result Comment: PERF ORMED BY: [address] [place] [address] PATHOLOGIST PROFESSIONAL TUTOR RENETTA MONACO M.D. Performed By: #### A ERC #### [address] GFR/1.73 sq M.predicted MDRD (S/P/Bld) [Vol rate/Area] mL/min/{1.73_m2} Normal [facility] Comment on above: Performed By: #### A ERC #### [address] Bilirubin Test strip Ql (U)O rdered By: Jun Gaona on 12-07-2022 Bilirubin Ql (U) Negative Negative [facility] Calcium [Mass/volume] in Ser um or PlasmaOrdered By: Jun Gaona on 12-07-2022 Calcium [Mass/Vol] 9.2 mg/dL Normal 8.6-10.3 [facility] Comment on above: Performed By: #### A ERC #### [address] Carbon dioxide, total [Moles /volume] in Serum or PlasmaOrdered By: Jun Gaona on 12-07-2022 CO2 [Moles/Vol] 27.6 mmol/L Normal 21.0-31.0 [facility] Comment on above: Performed By: #### A ERC #### [address] Casts typing in urine sedime nt by light microscopyOrdered By: Jun Gaona on 12-07-2022 Casts LM Nom (Urine sed) None seen [LPF] None Seen [facility] Chloride [Moles/volume] in S jennifer or PlasmaOrdered By: Jun Gaona on 12-07-2022 Chloride [Moles/Vol] 108 mmol/L High 98-107 [facility] Comment on above: Performed By: #### A ERC #### [address] Complete Blood Count Auto Di ffon 12-07-2022 Mean Corpuscular HGB Conc 32.8 g/dL Normal 32.5-35.6 [facility] Comment on above: Performed By: #### A ERC #### [facility] [address] Monocytes/100 WBC (Bld) 18.59 % Normal 0.00-20.00 T [facility] Comment on above: Performed By: #### A ERC #### [facility] [address] NRBC% 0.2 /100{WBC} Normal 0-0.5 [facility] Comment on above: Performed By: #### A ERC #### [address] Creatinine [Mass/volume] in Serum or PlasmaOrdered By: Jun Gaona on 12-07-2022 Creatinine [Mass/Vol] 0.70 mg/dL Normal 0.70-1.30 [facility] Comment on above: Performed By: #### A ERC #### [address] Dipstick and Microscopicon 0 12-07-2022 Amorphous Sediment,Urine 3+ Normal [facility] Comment on above: Order Comment: for m uscle spasms, I let the charge @rn, she is going to let rn lila know,pls. Performed By: #### S CAN CBC, BMP #### [address] Appearance (U) Turbid Critically abnormal Clear [facility] Comment on above: Order Comment: for m uscle spasms, I let the charge @rn, she is going to let rn lila know,pls. Performed By: #### S CAN CBC, BMP #### [place] [address] [place] Bacteria,Urine 3+ High None Seen [facility] Comment on above: Order Comment: for m uscle spasms, I let the charge @rn, she is going to let rn lila know,pls. Performed By: #### S CAN CBC, BMP #### [place] [address] [place] Bilirubin,Urine Negative Normal Negative [facility] Comment on above: Order Comment: for m uscle spasms, I let the charge @rn, she is going to let rn lila know,pls. Performed By: #### S CAN CBC, BMP #### [facility] [address] Calcium Oxalate Crystals,Urine 1+ Normal [facility] Comment on above: Order Comment: for m uscle spasms, I let the charge @rn, she is going to let rn lila know,pls. Performed By: #### S CAN CBC, BMP #### [facility] [address] Glucose Ql (U) Normal Normal Normal [facility] Comment on above: Order Comment: for m uscle spasms, I let the charge @rn, she is going to let rn lila know,pls. Performed By: #### S CAN CBC, BMP #### [address] Hyaline Casts,Urine None Seen Normal 0-[address] [facility] Comment on above: Order Comment: for m uscle spasms, I let the charge @rn, she is going to let rn lila know,pls. Performed By: #### S CAN CBC, BMP #### [address] Ketones Ql (U) Negative Normal Negative [facility] Comment on above: Order Comment: for m uscle spasms, I let the charge @rn, she is going to let rn lila know,pls. Performed By: #### S CAN CBC, BMP #### [address] Leukocyte esterase Test strip Ql (U) 4+ High Negative [facility] Comment on above: Order Comment: for m uscle spasms, I let the charge @rn, she is going to let rn lila know,pls. Performed By: #### S CAN CBC, BMP #### [address] Nitrite,Urine Positive High Negative [facility] Comment on above: Order Comment: for wendy uscle spasms, I let the charge @rn, she is going to let rn lila huitron,pls. Performed By: #### S CAN CBC, BMP #### [address] Occult Blood,Urine 2+ High Negative [facility] Comment on above: Order Comment: for wendy uscle spasms, I let the charge @rn, she is going to let rn lila huitron,pls. Result Comment: PERF ORMED BY: [place] [address] PATHOLOGIST PROFESSIONAL TUTOR RENETTA MONACO M.D. Performed By: #### S CAN CBC, BMP #### [address] Other Casts,Urine None Seen Normal None Seen [facility] Comment on above: Order Comment: for wendy uscle spasms, I let the charge @rn, she is going to let rn lila huitron,pls. Result Comment: PERF ORMED BY: [place] [address] PATHOLOGIST PROFESSIONAL TUTOR RENETTA MONACO M.D. Performed By: #### S CAN CBC, BMP #### [place] [address] [place] Protein,Urine Trace High Negative [facility] Comment on above: Order Comment: for wendy uscle spasms, I let the charge @rn, she is going to let rn lila huitron,pls. Performed By: #### S CAN CBC, BMP #### [place] [address] [place] RBC,Urine 3-4 Normal 0-4 [facility] Comment on above: Order Comment: for wendy uscle spasms, I let the charge @rn, she is going to let rn lila huitron,pls. Performed By: #### S CAN CBC, BMP #### [place] [address] [place] Specificy [place],Urine 1.005 Normal 1.001-1.030 [facility] Comment on above: Order Comment: for m uscle spasms, I let the charge @rn, she is going to let rn lila know,pls. Performed By: #### S CAN CBC, BMP #### [address] Squamous Epithelial Cell,Urine 1-2 Normal 0-2 [facility] Comment on above: Order Comment: for m uscle spasms, I let the charge @rn, she is going to let rn lila know,pls. Performed By: #### S CAN CBC, BMP #### [address] Urobilinogen,Urine Normal Normal Normal [facility] Comment on above: Order Comment: for m uscle spasms, I let the charge @rn, she is going to let rn lila know,pls. Performed By: #### S CAN CBC, BMP #### [address] WBC,Urine Innumerable High 0-4 [facility] Comment on above: Order Comment: for m uscle spasms, I let the charge @rn, she is going to let rn lila know,pls. Performed By: #### S CAN CBC, BMP #### [address] Erythrocyte distribution wid th [Ratio] by Automated countOrdered By: Jun Gaona on 12-07-2022 Erythrocyte distribution width (RBC) [Ratio] 14.8 % Normal 12.0-14.8 [facility] Comment on above: Performed By: #### A ERC #### [address] Erythrocytes [#/volume] in B lood by Automated countOrdered By: Jun Gaona on 12-07-2022 RBC (Bld) [#/Vol] 4.46 10*6/uL Normal 3.90-5.60 [facility] Comment on above: Performed By: #### A ERC #### [place] [id number] [place] Glucose [Mass/volume] in Ser um or PlasmaOrdered By: Jun Gaona on 12-07-2022 Glucose [Mass/Vol] 79 mg/dL Normal 70-100 [facility] Comment on above: ADA recommended refe rence rangeRandom Glucose Reference Range is dependent on time and content of last meal. Glucose of more than 200 mg/dL in a nonstressed, ambulatory subject supports the diagnosis of Diabetes Mellitus. Result Comment: [place] om Glucose Reference Range is dependent on time and content of last meal. Glucose of more than 200 mg/dL in a nonstressed, ambulatory subject supports the diagnosis of Diabetes Mellitus. ADA recommended reference range Performed By: #### A ERC #### [address] Hematocrit [Volume Fraction] of Blood by Automated countOrdered By: Jun Gaona on 12-07-2022 Hematocrit (Bld) [Volume fraction] 36.9 % Low 38.8-50.0 [facility] Comment on above: Performed By: #### A ERC #### [address] Hemoglobin [Mass/volume] in BloodOrdered By: Jun Gaona on 12-07-2022 Hemoglobin (Bld) [Mass/Vol] 12.1 g/dL Low 13.0-17.0 [facility] Comment on above: Performed By: #### A ERC #### [address] Ketones Auto test strip (U) [Mass/Vol]Ordered By: Jun Gaona on 12-07-2022 Ketones (U) [Mass/Vol] Negative Negative [facility] Leukocytes [#/volume] correc mayte for nucleated erythrocytes in Blood by Automated counOrdered By: Jun Gaona on 12-07-2022 WBC corrected for nucl RBC Auto (Bld) [#/Vol] 4.1 10*3/uL 4.1-10.5 [facility] Leukocytes [#/volume] in Blo od by Automated countOrdered By: Jun Gaona on 12-07-2022 WBC (Bld) [#/Vol] 4.1 10*3/uL Normal 4.1-10.5 [facility] Comment on above: Performed By: #### A ERC #### [address] Lymphocytes [#/volume] in Bl ood by Automated countOrdered By: Jun Gaona on 12-07-2022 Lymphocytes (Bld) [#/Vol] 1.5 10*3/uL Normal 1.00-4.8 [facility] Comment on above: Performed By: #### A ERC #### [address] Lymphocytes/100 leukocytes i n Blood by Automated countOrdered By: Jun Gaona on 12-07-2022 Lymphocytes/100 WBC (Bld) 37.3 % Normal . [facility] Comment on above: Performed By: #### A ERC #### [address] MCH [Entitic mass] by Automa mayte countOrdered By: Jun Gaona on 12-07-2022 MCH (RBC) [Entitic mass] 27.1 pg Low 27.5-35.2 [facility] Comment on above: Performed By: #### A ERC #### [address] MCHC Auto (RBC) [Mass/Vol]Or dered By: Jun Gaona on 12-07-2022 MCHC (RBC) [Mass/Vol] 32.8 g/dL 32.5-35.6 [facility] MCV [Entitic volume] by Auto mated countOrdered By: Jun Gaona on 12-07-2022 MCV (RBC) [Entitic vol] 82.8 fL Low 83.5-101 [facility] Comment on above: Performed By: #### A ERC #### [place] [address] [place] Monocyte distribution width [Entitic volume] in Blood by AutomatedOrdered By: Jun Gaona on 12-07-2022 Monocyte distribution width Auto (Bld) [Entitic vol] 18.59 % 0.00-20.00 [facility] Neutrophils [#/volume] in Bl ood by Automated countOrdered By: Jun Gaona on 12-07-2022 Neutrophils (Bld) [#/Vol] 1.9 10*3/uL Normal 1.8-7.7 [facility] Comment on above: Performed By: #### A ERC #### [address] Nitrite Test strip Ql (U)Ord ered By: Jun Gaona on 12-07-2022 Nitrite Ql (U) Positive Negative [facility] No Panel InformationOrdered By: Jun Gaona on 12-07-2022 Estimated GFR (CKD-EPI) > 60.0 mL/Min [facility] Creatinine Clearance (Chem 89.68 [facility] Nucleated erythrocytes [Pres ence] in Blood by Automated countOrdered By: Jun Gaona on 12-07-2022 Nucleated RBC Auto Ql (Bld) 0.2 /100{WBC} 0-0.5 [facility] Platelet mean volume [Entiti c volume] in Blood by Automated countOrdered By: Jun Gaona on 12-07-2022 Platelet mean volume (Bld) [Entitic vol] 8.1 fL Normal 6.6-10.1 [facility] Comment on above: Performed By: #### A ERC #### [address] Platelets [#/volume] in Bloo d by Automated countOrdered By: Jun Gaona on 12-07-2022 Platelets (Bld) [#/Vol] 204 10*3/uL Normal 150-450 [facility] Comment on above: Performed By: #### A ERC #### [address] Potassium [Moles/volume] in Serum or PlasmaOrdered By: Jun Gaona on 12-07-2022 Potassium [Moles/Vol] 4.0 mmol/L Normal 3.5-5.1 [facility] Comment on above: Performed By: #### A ERC #### [address] [place] [address] [place] Protein Auto test strip (U) [Mass/Vol]Ordered By: Jun Gaona on 12-07-2022 Protein (U) [Mass/Vol] Trace mg/dL Negative [facility] Serum or plasma anion gap de terminationOrdered By: Jun Gaona on 12-07-2022 Anion gap [Moles/Vol] 8.4 mmol/L Normal 6.0-15.0 [facility] Comment on above: Performed By: #### A ERC #### [address] Sodium [Moles/volume] in Ser um or PlasmaOrdered By: Jun Gaona on 12-07-2022 Sodium [Moles/Vol] 140 mmol/L Normal 136-145 [facility] Comment on above: Performed By: #### A ERC #### [facility] [address] [place] [address] Specific gravity Auto test s trip (U) [Rel density]Ordered By: Jun Gaona on 12-07-2022 Specific gravity (U) [Rel density] 1.005 1.001-1.030 [facility] Urea nitrogen [Mass/volume] in Serum or PlasmaOrdered By: Jun Gaona on 12-07-2022 Urea nitrogen [Mass/Vol] 14 mg/dL Normal 7-25 [facility] Comment on above: Performed By: #### A ERC #### [facility] [address] [place] [address] Urine Cultureon 12-07-2022 Bacteria identified Cx Nom (U) ORGANISM: Klebsiella pneumoniae (ESBL) (O:KLEPNEESBL) [place] Count >100,000 ORGANISM: Enterococcus faecalis (O:ENTFAC) [place] Count >100,000 Aerobic SCOTT Charge (NMIC56) ----- [...] RESISTANT TO ALL B-LACTAM DRUGS. PERFORMED BY: [place] [address] PATHOLOGIST PROFESSIONAL TUTOR RENETTA MONACO M.D. Normal [facility] Comment on above: Performed By: #### S CAN CBC, BMP #### [address] Urine bacteria detection by automated methodOrdered By: Jun Gaona on 12-07-2022 Bacteria Auto Ql (U) 3+ None Seen [facility] Urine clarity by refractomet ry automatedOrdered By: Jun Gaona on 12-07-2022 Clarity Refractometry automated (U) Turbid Clear [facility] Urine culture routineOrdered By: Jun Gaona on 12-07-2022 Bacteria identified Cx Nom (U) Klebsiella pneumoniae (ESBL) [facility] Bacteria identified Cx Nom (U) Enterococcus faecalis [facility] Bacteria identified Cx Nom (U) Klebsiella pneumoniae (ESBL) [facility] Bacteria identified Cx Nom (U) Enterococcus faecalis [facility] Urine glucose measurement by automated test strip (mass/volume)Ordered By: Jun Gaona on 12-07-2022 Glucose Auto test strip (U) [Mass/Vol] Normal mg/dL Normal [facility] Urine hemoglobin detection b y automated test stripOrdered By: Jun Gaona on 12-07-2022 Hemoglobin Auto test strip Ql (U) 2+ Negative [facility] Urine leukocyte esterase det ection by automated test stripOrdered By: Jun Gaona on 12-07-2022 Leukocyte esterase Auto test strip Ql (U) 4+ Negative [facility] Urine pH measurement by auto mated test stripOrdered By: Jun Gaona on 12-07-2022 pH (U) 7.5 [pH] Normal 5.0-9.0 [facility] Comment on above: Order Comment: for wendy nelson spasms, I let the charge @rn, she is going to let rn lila know,pls. Performed By: #### S CAN CBC, BMP #### [facility] [address] Urobilinogen Auto test strip (U) [Mass/Vol]Ordered By: Jun Gaona on 12-07-2022 Urobilinogen (U) [Mass/Vol] Normal mg/dL Normal [facility] Bacteria Ur Culton 3 Bacteria identified Cx Nom (U) Abnormal [facility] Comment on above: Performed By: #### 6 30-4 ####[facility] LABCLIA [id number] [place] [address] [place] CNOVon 11-25-2022 CNOV Normal [facility] Urinalysis complete panel (U )on 11-25-2022 Bacteria LM.HPF (Urine sed) [#/Area] Moderate Abnormal None Seen [facility] Comment on above: Order Comment: Speci men Type: URINE SPECIMENOrdering Facility: [facility] Address: [address] [place] [address] Performed By: #### 2 4356-8 ####[facility] LABCLIA [id number] [place] [address] [place] Bilirubin Ql (U) Negative Normal Negative [facility] Comment on above: Order Comment: Speci men Type: URINE SPECIMENOrdering Facility: [facility] Address: [address] Performed By: #### 2 4356-8 ####[facility] LABCLIA [id number] [place] [address] [place] CALCIUM OXALATE CRYSTALS (UA) Few Abnormal None Seen [facility] Comment on above: Order Comment: Speci men Type: URINE SPECIMENOrdering Facility: [facility] Address: [address] [place] [address] Performed By: #### 2 4356-8 ####[facility] LABCLIA [id number] [place] [address] [place] Clarity (Unsp spec) Cloudy Abnormal Clear [facility] Comment on above: Order Comment: Speci men Type: URINE SPECIMENOrdering Facility: [facility] Address: [address] Performed By: #### 2 4356-8 ####[facility] LABCLIA [id number] [place] [address] [place] Color (U) Red Abnormal Yellow [facility] Comment on above: Order Comment: Speci men Type: URINE SPECIMENOrdering Facility: [facility] Address: [address] [place] [address] Performed By: #### 2 4356-8 ####[facility] LABCLIA [id number] [place] [address] [place] Glucose Test strip (U) [Mass/Vol] Negative Normal Trace, Negative [facility] Comment on above: Order Comment: Speci men Type: URINE SPECIMENOrdering Facility: [facility] Address: [address] Performed By: #### 2 4356-8 ####[facility] LABCLIA [id number] [place] [address] [place] Hemoglobin Ql (U) 3+ Abnormal Negative, Trace [facility] Comment on above: Order Comment: Speci men Type: URINE SPECIMENOrdering Facility: [facility] Address: [address] Performed By: #### 2 4356-8 ####[facility] LABCLIA [id number] [place] [address] [place] Ketones Ql (U) Negative Normal Negative, Trace [facility] Comment on above: Order Comment: Speci men Type: URINE SPECIMENOrdering Facility: [facility] Address: [address] Performed By: #### 2 4356-8 ####[facility] LABCLIA [id number] [place] [address] [place] Leukocyte esterase Test strip Ql (U) 500 Arnulfo/uL Abnormal Negative, 25 Arnulfo/uL [facility] Comment on above: Order Comment: Speci men Type: URINE SPECIMENOrdering Facility: [facility] Address: [address] Performed By: #### 2 4356-8 ####[facility] LABCLIA [id number] [place] [address] [place] Nitrite Ql (U) 1+ Abnormal Negative [facility] Comment on above: Order Comment: Speci men Type: URINE SPECIMENOrdering Facility: [facility] Address: [address] Performed By: #### 2 4356-8 ####[facility] LABCLIA [id number] [place] [address] [place] pH (U) 7.0 [pH] Normal 5.0-8.0 [facility] Comment on above: Order Comment: Speci men Type: URINE SPECIMENOrdering Facility: [facility] Address: [address] [place] [address] Performed By: #### 2 4356-8 ####[facility] LABIA [id number] [place] [address] [place] Protein (U) [Mass/Vol] 3+ Abnormal Trace , Negative [facility] Comment on above: Order Comment: Speci men Type: URINE SPECIMENOrdering Facility: [facility] Address: [address] [place] [address] Performed By: #### 2 4356-8 ####[facility] LABIA [id number] [place] [address] [place] RBC LM.HPF (Urine sed) [#/Area] /[HPF] Abnormal 0-3 /HPF [facility] Comment on above: Order Comment: Speci men Type: URINE SPECIMENOrdering Facility: [facility] Address: [address] [place] [address] Performed By: #### 2 4356-8 ####[facility] LABIA [id number] [place] [address] [place] Specific gravity (U) [Rel density] 1.008 Normal 1.005-1.030 [facility] Comment on above: Order Comment: Speci men Type: URINE SPECIMENOrdering Facility: [facility] Address: [address] [place] [address] Performed By: #### 2 4356-8 ####[facility] LABIA [id number] [place] [address] [place] Urobilinogen Ql (U) Negative Normal Negative [facility] Comment on above: Order Comment: Speci men Type: URINE SPECIMENOrdering Facility: [facility] Address: [address] Performed By: #### 2 4356-8 ####[facility] LABCLIA [id number] [place] [address] [place] WBC LM.HPF (Urine sed) [#/Area] /[HPF] Abnormal 0-5 /HPF [facility] Comment on above: Order Comment: Speci men Type: URINE SPECIMENOrdering Facility: [facility] Address: [address] Performed By: #### 2 4356-8 ####[facility] LABCLIA [id number] [place] [address] [place] CNPNon 11-12-2022 CNPN Normal [facility] CNOVon 10-27-2022 CNOV Normal [facility] XR ABDOMEN 1V SUPINEon 10-27 XR ABDOMEN 1V SUPINE Normal [facility] CNPNon 10-20-2022 CNPN Normal [facility] CNPNon 10-19-2022 CNPN Normal [facility] CASE MANAGEMon 10-14-2022 CASE MANAGEM Normal [facility] CASE MANAGEM Normal [facility] CNDSon 10-14-2022 CNDS Normal [facility] CONSULTon 10-14-2022 CONSULT Normal [facility] NURSING PROGon 10-14-2022 NURSING PROG Normal [facility] BRIEF OP NOTon 10-13-2022 BRIEF OP NOT Normal [facility] Basic metabolic 2000 panelon 10-13-2022 Anion gap [Moles/Vol] 10 mmol/L Normal 9-18 [facility] Comment on above: Order Comment: Speci men Type: BLOOD SPECIMENOrdering Facility: [facility] Address: [address] Performed By: #### 2 4321-2 ####[facility] LABCLIA [id number] [place] [address] [place] Calcium [Mass/Vol] 8.8 mg/dL Normal 8.5-10.2 [facility] Comment on above: Order Comment: Speci men Type: BLOOD SPECIMENOrdering Facility: [facility] Address: [address] [place] [address] Performed By: #### 2 4321-2 ####[facility] LABCLIA [id number] [place] [address] [place] Chloride [Moles/Vol] 108 mmol/L High 97-105 [facility] Comment on above: Order Comment: Speci men Type: BLOOD SPECIMENOrdering Facility: [facility] Address: [address] [place] [address] Performed By: #### 2 4321-2 ####[facility] LABCLIA [id number] [place] [address] [place] CO2 [Moles/Vol] 26 mmol/L Normal 22-30 [facility] Comment on above: Order Comment: Speci men Type: BLOOD SPECIMENOrdering Facility: [facility] Address: [address] [place], [place] [address] Performed By: #### 2 4321-2 ####[facility] LABCLIA [id number] [place] [address] [place] Creatinine [Mass/Vol] 0.94 mg/dL Normal 0.73-1.22 [facility] Comment on above: Order Comment: Speci men Type: BLOOD SPECIMENOrdering Facility: [facility] Address: [address] [place], [place] [address] Performed By: #### 2 4321-2 ####[facility] LABCLIA [id number] [place] [address] [place] ESTIMATED GLOMERULAR FILTRATION RATE 89 mL/min/1.73m??? Normal >=60 [facility] Comment on above: Order Comment: Speci men Type: BLOOD SPECIMENOrdering Facility: [facility] Address: [address] [id number] Result Comment: Ignacia mated Glomerular Filtration Rate [...] Performed By: #### 2 4321-2 ####[facility] LABCLIA [id number] [place] [address] [place] Glucose [Mass/Vol] 88 mg/dL Normal 74-99 [facility] Comment on above: Order Comment: Cierra cartwright Type: BLOOD SPECIMENOrdering Facility: [facility] Address: [address] [address] Result Comment: The [place] [employer] Association (ADA) provides guidance for cutoff [...] Standards of Medical Care in Diabetes 2016, [place] [employer]. Diabetes Care. 2016.39(Suppl 1). Performed By: #### 2 4321-2 ####[facility] LABCLIA [id number] [place] [address] [place] Potassium [Moles/Vol] 3.8 mmol/L Normal 3.7-5.1 [facility] Comment on above: Order Comment: Cierra cartwright Type: BLOOD SPECIMENOrdering Facility: [facility] Address: [address] [address] Performed By: #### 2 4321-2 ####[facility] LABCLIA [id number] [place] [address] [place] Sodium [Moles/Vol] 144 mmol/L Normal 136-144 [facility] Comment on above: Order Comment: Speci men Type: BLOOD SPECIMENOrdering Facility: [facility] Address: [address] [place] [address] Performed By: #### 2 4321-2 ####[facility] LABCLIA [id number] [place] [address] [place] Urea nitrogen [Mass/Vol] 9 mg/dL Normal 9-24 [facility] Comment on above: Order Comment: Speci men Type: BLOOD SPECIMENOrdering Facility: [facility] Address: [address] [place] [address] Performed By: #### 2 4321-2 ####[facility] LABIA [id number] [place] [address] [place] CASE MGT INIT ASSESon 2022 CASE MGT INIT ASSES Normal [facility] CBC panel Auto (Bld)on 10-13 Erythrocyte distribution width (RBC) [Ratio] 14.1 % Normal 11.5-15.0 [facility] Comment on above: Order Comment: Speci men Type: BLOOD SPECIMENOrdering Facility: [facility] Address: [address] [place] [address] Performed By: #### 5 8410-2 ####[facility] LABIA [id number] [address] [place] Hematocrit (Bld) [Volume fraction] 27.1 % Low 39.0-51.0 [facility] Comment on above: Order Comment: Speci men Type: BLOOD SPECIMENOrdering Facility: [facility] Address: [address] [place] [address] Performed By: #### 5 8410-2 ####[facility] LABCLIA [id number] [address] STATES OF [facility] Hemoglobin (Bld) [Mass/Vol] 8.8 g/dL Low 13.0-17.0 [facility] Comment on above: Order Comment: Speci men Type: BLOOD SPECIMENOrdering Facility: [facility] Address: [address] [place] [address] Performed By: #### 5 8410-2 ####[facility] LABIA [id number] [address] MCH (RBC) [Entitic mass] 27.7 pg Normal 26.0-34.0 [facility] Comment on above: Order Comment: Speci men Type: BLOOD SPECIMENOrdering Facility: [facility] Address: [address] [place] [address] Performed By: #### 5 8410-2 ####[facility] LABIA [id number] [address] STATES OF [facility] MCHC (RBC) [Mass/Vol] 32.5 g/dL Normal 30.5-36.0 [facility] Comment on above: Order Comment: Speci men Type: BLOOD SPECIMENOrdering Facility: [facility] Address: [address] [place] [address] Performed By: #### 5 8410-2 ####[facility] LABIA [id number] [address] [place] MCV (RBC) [Entitic vol] 85.2 fL Normal 80.0-100.0 C [facility] Comment on above: Order Comment: Speci men Type: BLOOD SPECIMENOrdering Facility: [facility] Address: [address] [place], [place] [address] Performed By: #### 5 8410-2 ####[facility] LABIA [id number] [address] [place] Nucleated RBC (Bld) [#/Vol] 10*3/uL Normal <0.01 [facility] Comment on above: Order Comment: Speci men Type: BLOOD SPECIMENOrdering Facility: [facility] Address: [address] [place], [place] [address] Performed By: #### 5 8410-2 ####[facility] LABCLIA [id number] [place] [address] [place] Platelet mean volume (Bld) [Entitic vol] 10.0 fL Normal 9.0-12.7 [facility] Comment on above: Order Comment: Speci men Type: BLOOD SPECIMENOrdering Facility: [facility] Address: [address] [place], [place] [address] Performed By: #### 5 8410-2 ####[facility] LABCLIA [id number] [place] [address] [place] Platelets (Bld) [#/Vol] 186 10*3/uL Normal 150-400 [facility] Comment on above: Order Comment: Speci men Type: BLOOD SPECIMENOrdering Facility: [facility] Address: [address] [place], [place] [address] Performed By: #### 5 8410-2 ####[facility] LABIA [id number] [place] [address] [place] RBC (Bld) [#/Vol] 3.18 10*6/uL Low 4.20-6.00 [facility] Comment on above: Order Comment: Speci men Type: BLOOD SPECIMENOrdering Facility: [facility] Address: [address] [place], [place] [address] Performed By: #### 5 8410-2 ####[facility] LABCLIA [id number] [place] [address] [place] WBC (Bld) [#/Vol] 4.95 10*3/uL Normal 3.70-11.00 [facility] Comment on above: Order Comment: Speci men Type: BLOOD SPECIMENOrdering Facility: [facility] Address: [address] Performed By: #### 5 8410-2 ####[facility] LABCLIA [id number] [place] [address] [place] CONSULT PROGon 10-13-2022 CONSULT PROG Normal [facility] IR LINE REMOVAL CONSULTon IR LINE REMOVAL CONSULT Normal C [facility] THERAPY NTon 10-13-2022 THERAPY NT Normal [facility] THERAPY NT Normal [facility] Basic metabolic 2000 panelon 10-12-2022 Anion gap [Moles/Vol] 7 mmol/L Low 9-18 [facility] Comment on above: Order Comment: Speci men Type: BLOOD SPECIMENOrdering Facility: [facility] Address: [address] [address] Performed By: #### 2 4321-2 ####[facility] LABCLIA [id number] [place] [address] [place] Calcium [Mass/Vol] 8.7 mg/dL Normal 8.5-10.2 [facility] Comment on above: Order Comment: Speci men Type: BLOOD SPECIMENOrdering Facility: [facility] Address: [address] [address] Performed By: #### 2 4321-2 ####[facility] LABCLIA [id number] [place] [address] [place] Chloride [Moles/Vol] 102 mmol/L Normal 97-105 [facility] Comment on above: Order Comment: Speci men Type: BLOOD SPECIMENOrdering Facility: [facility] Address: [address] Performed By: #### 2 4321-2 ####[facility] LABCLIA [id number] [place] [address] [place] CO2 [Moles/Vol] 25 mmol/L Normal 22-30 [facility] Comment on above: Order Comment: Speci men Type: BLOOD SPECIMENOrdering Facility: [facility] Address: [address] [address] Performed By: #### 2 4321-2 ####[facility] LABIA [id number] [address] [place] Creatinine [Mass/Vol] 0.86 mg/dL Normal 0.73-1.22 [facility] Comment on above: Order Comment: Speci men Type: BLOOD SPECIMENOrdering Facility: [facility] Address: [address] [address] Performed By: #### 2 4321-2 ####[facility] LABIA [id number] [address] [place] ESTIMATED GLOMERULAR FILTRATION RATE 95 mL/min/1.73m??? Normal >=60 [facility] Comment on above: Order Comment: Speci men Type: BLOOD SPECIMENOrdering Facility: [facility] Address: [address] [address] Result Comment: Ignacia mated Glomerular Filtration Rate [...] Performed By: #### 2 4321-2 ####[facility] LABIA [id number] [place] [address] [place] Glucose [Mass/Vol] 136 mg/dL High 74-99 [facility] Comment on above: Order Comment: Speci men Type: BLOOD SPECIMENOrdering Facility: [facility] Address: [address] [address] Result Comment: The [place] Diabetes Association (ADA) provides guidance for cutoff [...] Standards of Medical Care in Diabetes 2016, [place] [employer]. Diabetes Care. 2016.39(Suppl 1). Performed By: #### 2 4321-2 ####[facility] LABCLIA [id number] [place] [address] [place] Potassium [Moles/Vol] 4.3 mmol/L Normal 3.7-5.1 [facility] Comment on above: Order Comment: Guadalu[place] men Type: BLOOD SPECIMENOrdering Facility: [facility] Address: [address] [place] [address] Performed By: #### 2 4321-2 ####[facility] LABIA [id number] [place] [address] [place] Sodium [Moles/Vol] 134 mmol/L Low 136-144 [facility] Comment on above: Order Comment: Cierra cartwright Type: BLOOD SPECIMENOrdering Facility: [facility] Address: [address] [place] [address] Performed By: #### 2 4321-2 ####[facility] LABCLIA [id number] [place] [address] [place] Urea nitrogen [Mass/Vol] 12 mg/dL Normal 9-24 [facility] Comment on above: Order Comment: Guadalu[place] men Type: BLOOD SPECIMENOrdering Facility: [facility] Address: [address] [address] Performed By: #### 2 4321-2 ####[facility] LABIA [id number] [place] [address] [place] CBC panel Auto (Bld)on 10-12 Erythrocyte distribution width (RBC) [Ratio] 13.7 % Normal 11.5-15.0 [facility] Comment on above: Order Comment: Speci men Type: BLOOD SPECIMENOrdering Facility: [facility] Address: [address] [place] [address] Performed By: #### 5 8410-2 ####[facility] LABCLIA [id number] [address] [place] Hematocrit (Bld) [Volume fraction] 30.7 % Low 39.0-51.0 [facility] Comment on above: Order Comment: Speci men Type: BLOOD SPECIMENOrdering Facility: [facility] Address: [address] [place] [address] Performed By: #### 5 8410-2 ####[facility] LABIA [id number] [address] [place] Hemoglobin (Bld) [Mass/Vol] 9.8 g/dL Low 13.0-17.0 [facility] Comment on above: Order Comment: Speci men Type: BLOOD SPECIMENOrdering Facility: [facility] Address: [address] [place] [address] Performed By: #### 5 8410-2 ####[facility] LABCLIA [id number] [place] [address] [place] MCH (RBC) [Entitic mass] 27.3 pg Normal 26.0-34.0 [facility] Comment on above: Order Comment: Speci men Type: BLOOD SPECIMENOrdering Facility: [facility] Address: [address] [place], [place] [address] Performed By: #### 5 8410-2 ####[facility] LABCLIA [id number] [address] [place] MCHC (RBC) [Mass/Vol] 31.9 g/dL Normal 30.5-36.0 [facility] Comment on above: Order Comment: Speci men Type: BLOOD SPECIMENOrdering Facility: [facility] Address: [address] Performed By: #### 5 8410-2 ####[facility] [id number] [address] MCV (RBC) [Entitic vol] 85.5 fL Normal 80.0-100.0 [facility] Comment on above: Order Comment: Speci men Type: BLOOD SPECIMENOrdering Facility: [facility] Address: [address] Performed By: #### 5 8410-2 ####[facility]UN[facility] [id number] [address] [place] Nucleated RBC (Bld) [#/Vol] 10*3/uL Normal <0.01 [facility] Comment on above: Order Comment: Speci men Type: BLOOD SPECIMENOrdering Facility: [facility] Address: [address] Performed By: #### 5 8410-2 ####[facility] [id number] [address] [place] Platelet mean volume (Bld) [Entitic vol] 10.3 fL Normal 9.0-12.7 [facility] Comment on above: Order Comment: Speci men Type: BLOOD SPECIMENOrdering Facility: [facility] Address: [address] [place] [address] Performed By: #### 5 8410-2 ####[facility] LABUNIVERS[facility] [id number] [place] [address] [place] Platelets (Bld) [#/Vol] 218 10*3/uL Normal 150-400 [facility] Comment on above: Order Comment: Speci men Type: BLOOD SPECIMENOrdering Facility: [facility] Address: [address] Performed By: #### 5 8410-2 ####[facility] LABCLIA [id number] [place] [address] [place] RBC (Bld) [#/Vol] 3.59 10*6/uL Low 4.20-6.00 [facility] Comment on above: Order Comment: Speci men Type: BLOOD SPECIMENOrdering Facility: [facility] Address: [address] [place] [address] Performed By: #### 5 8410-2 ####[facility] LABIA [id number] [place] [address] [place] WBC (Bld) [#/Vol] 11.23 10*3/uL High 3.70-11.00 [facility] Comment on above: Order Comment: Speci men Type: BLOOD SPECIMENOrdering Facility: [facility] Address: [address] [place] [address] Performed By: #### 5 8410-2 ####[facility] LABIA [id number] [place] [address] [place] CONSULT PROGon 10-12-2022 CONSULT PROG Normal [facility] NURSING PROGon 10-12-2022 NURSING PROG Normal [facility] ANES POSTPROC EVALon 023 ANES POSTPROC EVAL Normal [facility] ANES PRE-OPon 10-11-2022 ANES PRE-OP Normal [facility] BRIEF OP NOTon 10-11-2022 BRIEF OP NOT Normal [facility] Bacteria Ur Culton Bacteria identified Cx Nom (U) CULTURE, URINE: No growth (<100 CFU/ml) Normal [facility] Comment on above: Performed By: #### 6 30-4 ####[facility] LABCLIA [id number] [place] [address] [place] Basic metabolic 2000 panelon 10-11-2022 Anion gap [Moles/Vol] 9 mmol/L Normal 9-18 [facility] Comment on above: Order Comment: Speci men Type: BLOOD SPECIMENOrdering Facility: [facility] Address: [address] Performed By: #### 2 4321-2 ####[facility] LABCLIA [id number] [place] [address] [place] Calcium [Mass/Vol] 9.0 mg/dL Normal 8.5-10.2 [facility] Comment on above: Order Comment: Speci men Type: BLOOD SPECIMENOrdering Facility: [facility] Address: [address] Performed By: #### 2 4321-2 ####[facility] LABCLIA [id number] [place] [address] [place] Chloride [Moles/Vol] 106 mmol/L High 97-105 [facility] Comment on above: Order Comment: Speci men Type: BLOOD SPECIMENOrdering Facility: [facility] Address: [address] Performed By: #### 2 4321-2 ####[facility] LABCLIA [id number] [place] [address] [place] CO2 [Moles/Vol] 24 mmol/L Normal 22-30 [facility] Comment on above: Order Comment: Speci men Type: BLOOD SPECIMENOrdering Facility: [facility] Address: [address] Performed By: #### 2 4321-2 ####[facility] LABCLIA [id number] [place] [address] [place] Creatinine [Mass/Vol] 0.88 mg/dL Normal 0.73-1.22 [facility] Comment on above: Order Comment: Speci men Type: BLOOD SPECIMENOrdering Facility: [facility] Address: [address] Performed By: #### 2 4321-2 ####[facility] LABCLIA [id number] [place] [address] [place] ESTIMATED GLOMERULAR FILTRATION RATE 94 mL/min/1.73m??? Normal >=60 [facility] Comment on above: Order Comment: Cierra cartwright Type: BLOOD SPECIMENOrdering Facility: [facility] Address: [address] [address] Result Comment: Ignacia mated Glomerular Filtration Rate [...] Performed By: #### 2 4321-2 ####[facility] LABIA [id number] [place] [address] [place] Glucose [Mass/Vol] 101 mg/dL High 74-99 [facility] Comment on above: Order Comment: Cierra cartwright Type: BLOOD SPECIMENOrdering Facility: [facility] Address: [address] [place] [address] Result Comment: The [place] Diabetes Association (ADA) provides guidance for cutoff [...] Standards of Medical Care in Diabetes 2016, [place] [employer]. Diabetes Care. 2016.39(Suppl 1). Performed By: #### 2 4321-2 ####[facility] LABIA [id number] [address] [id number] [address] [place] Potassium [Moles/Vol] 4.1 mmol/L Normal 3.7-5.1 [facility] Comment on above: Order Comment: Speci men Type: BLOOD SPECIMENOrdering Facility: [facility] Address: [address] [address] Performed By: #### 2 4321-2 ####[facility] LABCLIA [id number] [place] [address] [place] Sodium [Moles/Vol] 139 mmol/L Normal 136-144 [facility] Comment on above: Order Comment: Speci men Type: BLOOD SPECIMENOrdering Facility: [facility] Address: [address] [place] [address] Performed By: #### 2 4321-2 ####[facility] LABCLIA [id number] [place] [address] [place] Urea nitrogen [Mass/Vol] 8 mg/dL Low 9-24 [facility] Comment on above: Order Comment: Speci men Type: BLOOD SPECIMENOrdering Facility: [facility] Address: [address] [place] [address] Performed By: #### 2 4321-2 ####[facility] LABCLIA [id number] [place] [address] [place] Anion gap [Moles/Vol] 7 mmol/L Low 9-18 [facility] Comment on above: Order Comment: Speci men Type: BLOOD SPECIMENOrdering Facility: [facility] Address: [address] Performed By: #### 2 4321-2 ####[facility] LABCLIA [id number] [place] [address] [place] Calcium [Mass/Vol] 9.0 mg/dL Normal 8.5-10.2 [facility] Comment on above: Order Comment: Speci men Type: BLOOD SPECIMENOrdering Facility: [facility] Address: [address] [place] [address] Performed By: #### 2 4321-2 ####[facility] LABCLIA [id number] [place] [address] [place] Chloride [Moles/Vol] 107 mmol/L High 97-105 [facility] Comment on above: Order Comment: Speci men Type: BLOOD SPECIMENOrdering Facility: [facility] Address: [address] [place] [address] Performed By: #### 2 4321-2 ####[facility] LABCLIA [id number] [place] [address] [place] CO2 [Moles/Vol] 25 mmol/L Normal 22-30 [facility] Comment on above: Order Comment: Speci men Type: BLOOD SPECIMENOrdering Facility: [facility] Address: [address] [place] [address] Performed By: #### 2 4321-2 ####[facility] LABCLIA [id number] [place] [address] [place] Creatinine [Mass/Vol] 0.82 mg/dL Normal 0.73-1.22 [facility] Comment on above: Order Comment: Speci men Type: BLOOD SPECIMENOrdering Facility: [facility] Address: [address] [place] [address] Performed By: #### 2 4321-2 ####[facility] LABCLIA [id number] [address] [place] ESTIMATED GLOMERULAR FILTRATION RATE 96 mL/min/1.73m??? Normal >=60 [facility] Comment on above: Order Comment: Speci men Type: BLOOD SPECIMENOrdering Facility: [facility] Address: [address] [place] [address] Result Comment: Ignacia mated Glomerular Filtration Rate [...] Performed By: #### 2 4321-2 ####[facility] LABCLIA [id number] [address] [address] [place] Glucose [Mass/Vol] 85 mg/dL Normal 74-99 [facility] Comment on above: Order Comment: Speci men Type: BLOOD SPECIMENOrdering Facility: [facility] Address: [address] [place] [address] Result Comment: The [place] Diabetes Association (ADA) provides guidance for cutoff [...] Standards of Medical Care in Diabetes 2016, [place] [employer]. Diabetes Care. 2016.39(Suppl 1). Performed By: #### 2 4321-2 ####[facility] LABCLIA [id number] [place] [id number] [place] Potassium [Moles/Vol] 3.7 mmol/L Normal 3.7-5.1 [facility] Comment on above: Order Comment: Speci men Type: BLOOD SPECIMENOrdering Facility: [facility] Address: [address] [place] [address] Performed By: #### 2 4321-2 ####[facility] LABCLIA [id number] [address] [address] [place] Sodium [Moles/Vol] 139 mmol/L Normal 136-144 [facility] Comment on above: Order Comment: Speci men Type: BLOOD SPECIMENOrdering Facility: [facility] Address: [address] [address] Performed By: #### 2 4321-2 ####[facility] LABIA [id number] [address] [place] Urea nitrogen [Mass/Vol] 8 mg/dL Low 9-24 [facility] Comment on above: Order Comment: Speci men Type: BLOOD SPECIMENOrdering Facility: [facility] Address: [address] [place] [address] Performed By: #### 2 4321-2 ####[facility] [id number] [address] [place] CALCULI ANALYSISon 3 Calculus analysis [Interp] Normal [facility] Comment on above: Order Comment: Speci men Type: CALCULUS SPECIMENOrdering Facility: [facility] Address: [address] [place] [address] Result Comment: This test was developed and its performance characteristics determined by [facility] [place] (-[facility]). It has not been cleared or approved by the FDA. [facility] is regulated under CLIA as qualified to perform high-complexity testing. This test is used for clinical purposes. It should not be regarded as investigational or for research. Performed By: #### C SA ####[facility] LABIA [id number] [address] [place] CALCULUS COLOR WHITE Normal [facility] Comment on above: Order Comment: Speci men Type: CALCULUS SPECIMENOrdering Facility: [facility] Address: [address] [place] [address] Performed By: #### C SA ####[facility] LABIA [id number] [address] [place] CALCULUS COMPOSITION 1 100% Calcium Phosphate Normal [facility] Comment on above: Order Comment: Speci men Type: CALCULUS SPECIMENOrdering Facility: [facility] Address: [address] [address] Performed By: #### C SA ####[facility] LABIA [id number] [address] CALCULUS SIZE AND WT Multiple pieces. 0.1902 GRAMS Normal [facility] Comment on above: Order Comment: Speci men Type: CALCULUS SPECIMENOrdering Facility: [facility] Address: [address] [place] [address] Performed By: #### C SA ####[facility] LABIA [id number] [place] [address] [place] CALCULUS TYPE CALCULI/CALCULUS Normal [facility] Comment on above: Order Comment: Speci men Type: CALCULUS SPECIMENOrdering Facility: [facility] Address: [address] [place] [address] Performed By: #### C SA ####[facility] LABIA [id number] [place] [address] [place] CBC W Auto Differential pane l (Bld)on 10-11-2022 Basophils (Bld) [#/Vol] 0.03 10*3/uL Normal <0.11 [facility] Comment on above: Order Comment: Speci men Type: BLOOD SPECIMENOrdering Facility: [facility] Address: [address] [place], [place] [address] Performed By: #### 5 7021-8 ####[facility] LABIA [id number] [place] [address] [place] Basophils/100 WBC (Bld) 0.4 % Normal [facility] Comment on above: Order Comment: Speci men Type: BLOOD SPECIMENOrdering Facility: [facility] Address: [address] [place] [address] Performed By: #### 5 7021-8 ####[facility] LABIA [id number] [place] [address] [place] Differential cell count method Nom (Bld) Auto Normal [facility] Comment on above: Order Comment: Speci men Type: BLOOD SPECIMENOrdering Facility: [facility] Address: [address] [place] [address] Performed By: #### 5 7021-8 ####[facility] LABCLIA [id number] [place] [address] [place] Eosinophils (Bld) [#/Vol] 0.07 10*3/uL Normal <0.46 [facility] Comment on above: Order Comment: Speci men Type: BLOOD SPECIMENOrdering Facility: [facility] Address: [address] [place] [address] Performed By: #### 5 7021-8 ####[facility] LABCLIA [id number] [place] [address] [place] Eosinophils/100 WBC (Bld) 0.9 % Normal [facility] Comment on above: Order Comment: Speci men Type: BLOOD SPECIMENOrdering Facility: [facility] Address: [address] [place], [place] [address] Performed By: #### 5 7021-8 ####[facility] LABCLIA [id number] [place] [address] [place] Erythrocyte distribution width (RBC) [Ratio] 14.1 % Normal 11.5-15.0 [facility] Comment on above: Order Comment: Speci men Type: BLOOD SPECIMENOrdering Facility: [facility] Address: [address] [place], [place] [address] Performed By: #### 5 7021-8 ####[facility] LABCLIA [id number] [place] [address] [place] Hematocrit (Bld) [Volume fraction] 32.0 % Low 39.0-51.0 [facility] Comment on above: Order Comment: Speci men Type: BLOOD SPECIMENOrdering Facility: [facility] Address: [address] Performed By: #### 5 7021-8 ####[facility] LABCLIA [id number] [place] [address] [place] Hemoglobin (Bld) [Mass/Vol] 10.2 g/dL Low 13.0-17.0 [facility] Comment on above: Order Comment: Speci men Type: BLOOD SPECIMENOrdering Facility: [facility] Address: [address] Performed By: #### 5 7021-8 ####[facility] LABCLIA [id number] [place] [address] [place] Immature granulocytes (Bld) [#/Vol] 0.05 10*3/uL Normal <0.10 [facility] Comment on above: Order Comment: Speci men Type: BLOOD SPECIMENOrdering Facility: [facility] Address: [address] Performed By: #### 5 7021-8 ####[facility] LABCLIA [id number] [place] [address] [place] Immature granulocytes/100 WBC (Bld) 0.6 % Normal [facility] Comment on above: Order Comment: Speci men Type: BLOOD SPECIMENOrdering Facility: [facility] Address: [address] Performed By: #### 5 7021-8 ####[facility] LABCLIA [id number] [place] [address] [place] Lymphocytes (Bld) [#/Vol] 0.32 10*3/uL Low 1.00-4.00 [facility] Comment on above: Order Comment: Speci men Type: BLOOD SPECIMENOrdering Facility: [facility] Address: [address] Performed By: #### 5 7021-8 ####[facility] LABCLIA [id number] [address] [place] Lymphocytes/100 WBC (Bld) 4.0 % Normal [facility] Comment on above: Order Comment: Speci men Type: BLOOD SPECIMENOrdering Facility: [facility] Address: [address] [place] [address] Performed By: #### 5 7021-8 ####[facility] LABIA [id number] [address] MCH (RBC) [Entitic mass] 27.4 pg Normal 26.0-34.0 [facility] Comment on above: Order Comment: Speci men Type: BLOOD SPECIMENOrdering Facility: [facility] Address: [address] [place] [address] Performed By: #### 5 7021-8 ####[facility] LABIA [id number] [address] MCHC (RBC) [Mass/Vol] 31.9 g/dL Normal 30.5-36.0 [facility] Comment on above: Order Comment: Speci men Type: BLOOD SPECIMENOrdering Facility: [facility] Address: [address] [place], [place] [address] Performed By: #### 5 7021-8 ####[facility] LABIA [id number] [address] [place] MCV (RBC) [Entitic vol] 86.0 fL Normal 80.0-100.0 C [facility] Comment on above: Order Comment: Speci men Type: BLOOD SPECIMENOrdering Facility: [facility] Address: [address] [place], [place] [address] Performed By: #### 5 7021-8 ####[facility] LABIA [id number] [address] [place] Monocytes (Bld) [#/Vol] 0.08 10*3/uL Normal <0.87 [facility] Comment on above: Order Comment: Speci men Type: BLOOD SPECIMENOrdering Facility: [facility] Address: [address] Performed By: #### 5 7021-8 ####[facility] LABCLIA [id number] [place] [address] [place] Monocytes/100 WBC (Bld) 1.0 % Normal [facility] Comment on above: Order Comment: Speci men Type: BLOOD SPECIMENOrdering Facility: [facility] Address: [address] Performed By: #### 5 7021-8 ####[facility] LABIA [id number] [place] [address] [place] Neutrophils (Bld) [#/Vol] 7.39 10*3/uL Normal 1.45-7.50 [facility] Comment on above: Order Comment: Speci men Type: BLOOD SPECIMENOrdering Facility: [facility] Address: [address] Performed By: #### 5 7021-8 ####[facility] LABIA [id number] [place] [address] [place] Neutrophils/100 WBC (Bld) 93.1 % Normal [facility] Comment on above: Order Comment: Speci men Type: BLOOD SPECIMENOrdering Facility: [facility] Address: [address] Performed By: #### 5 7021-8 ####[facility] LABIA [id number] [place] [address] [place] Nucleated RBC (Bld) [#/Vol] 10*3/uL Normal <0.01 [facility] Comment on above: Order Comment: Speci men Type: BLOOD SPECIMENOrdering Facility: [facility] Address: [address] Performed By: #### 5 7021-8 ####[facility] LABCLIA [id number] [place] [address] [place] Nucleated RBC/100 WBC (Bld) [Ratio] 0.0 /100 WBC Normal [facility] Comment on above: Order Comment: Speci men Type: BLOOD SPECIMENOrdering Facility: [facility] Address: [address] [place], [place] [address] Performed By: #### 5 7021-8 ####[facility] LABIA [id number] [place] [address] [place] Platelet mean volume (Bld) [Entitic vol] 9.3 fL Normal 9.0-12.7 [facility] Comment on above: Order Comment: Speci men Type: BLOOD SPECIMENOrdering Facility: [facility] Address: [address] [place], [place] [address] Performed By: #### 5 7021-8 ####[facility] LABIA [id number] [place] [address] [place] Platelets (Bld) [#/Vol] 212 10*3/uL Normal 150-400 [facility] Comment on above: Order Comment: Speci men Type: BLOOD SPECIMENOrdering Facility: [facility] Address: [address] [place], [place] [address] Performed By: #### 5 7021-8 ####[facility] LABIA [id number] [place] [address] [place] RBC (Bld) [#/Vol] 3.72 10*6/uL Low 4.20-6.00 [facility] Comment on above: Order Comment: Speci men Type: BLOOD SPECIMENOrdering Facility: [facility] Address: [address] [place], [place] [address] Performed By: #### 5 7021-8 ####[facility] LABIA [id number] [id number] [address] [place] WBC (Bld) [#/Vol] 7.94 10*3/uL Normal 3.70-11.00 [facility] Comment on above: Order Comment: Speci men Type: BLOOD SPECIMENOrdering Facility: [facility] Address: [address] [place] [address] Performed By: #### 5 7021-8 ####[facility] LABCLIA [id number] [address] OF [facility] CBC panel Auto (Bld)on 10-11 Erythrocyte distribution width (RBC) [Ratio] 14.1 % Normal 11.5-15.0 [facility] Comment on above: Order Comment: Speci men Type: BLOOD SPECIMENOrdering Facility: [facility] Address: [address] [place] [address] Performed By: #### 5 8410-2 ####[facility] LABIA [id number] [address] STATES OF [facility] Hematocrit (Bld) [Volume fraction] 29.1 % Low 39.0-51.0 [facility] Comment on above: Order Comment: Speci men Type: BLOOD SPECIMENOrdering Facility: [facility] Address: [address] [place] [address] Performed By: #### 5 8410-2 ####[facility] LABCLIA [id number] [place] [address] [place] Hemoglobin (Bld) [Mass/Vol] 9.3 g/dL Low 13.0-17.0 [facility] Comment on above: Order Comment: Speci men Type: BLOOD SPECIMENOrdering Facility: [facility] Address: [address] [place] [address] Performed By: #### 5 8410-2 ####[facility] LABCLIA [id number] [place] [address] [place] MCH (RBC) [Entitic mass] 27.2 pg Normal 26.0-34.0 [facility] Comment on above: Order Comment: Speci men Type: BLOOD SPECIMENOrdering Facility: [facility] Address: [address] [place] [address] Performed By: #### 5 8410-2 ####[facility] LABIA [id number] [address] [place] MCHC (RBC) [Mass/Vol] 32.0 g/dL Normal 30.5-36.0 [facility] Comment on above: Order Comment: Speci men Type: BLOOD SPECIMENOrdering Facility: [facility] Address: [address] [place] [address] Performed By: #### 5 8410-2 ####[facility] LABIA [id number] [place] [address] [place] MCV (RBC) [Entitic vol] 85.1 fL Normal 80.0-100.0 [facility] Comment on above: Order Comment: Speci men Type: BLOOD SPECIMENOrdering Facility: [facility] Address: [address] [place] [address] Performed By: #### 5 8410-2 ####[facility] LABIA [id number] [place] [address] [place] Nucleated RBC (Bld) [#/Vol] 10*3/uL Normal <0.01 [facility] Comment on above: Order Comment: Speci men Type: BLOOD SPECIMENOrdering Facility: [facility] Address: [address] [place] [address] Performed By: #### 5 8410-2 ####[facility] LABIA [id number] [place] [address] [place] Platelet mean volume (Bld) [Entitic vol] 9.6 fL Normal 9.0-12.7 [facility] Comment on above: Order Comment: Speci men Type: BLOOD SPECIMENOrdering Facility: [facility] Address: [address] Performed By: #### 5 8410-2 ####[facility] LABCLIA [id number] [place] [address] [place] Platelets (Bld) [#/Vol] 221 10*3/uL Normal 150-400 [facility] Comment on above: Order Comment: Speci men Type: BLOOD SPECIMENOrdering Facility: [facility] Address: [address] [place] [address] Performed By: #### 5 8410-2 ####[facility] LABIA [id number] [place] [address] [place] RBC (Bld) [#/Vol] 3.42 10*6/uL Low 4.20-6.00 [facility] Comment on above: Order Comment: Speci men Type: BLOOD SPECIMENOrdering Facility: [facility] Address: [address] [place] [address] Performed By: #### 5 8410-2 ####[facility] LABIA [id number] [place] [address] [facility] [place] WBC (Bld) [#/Vol] 4.18 10*3/uL Normal 3.70-11.00 [facility] Comment on above: Order Comment: Speci men Type: BLOOD SPECIMENOrdering Facility: [facility] Address: [address] [place] [address] Performed By: #### 5 8410-2 ####[facility] LABIA [id number] [place] [address] [place] CONSULTon 10-11-2022 CONSULT Normal [facility] NURSING PROGon 10-11-2022 NURSING PROG Normal [facility] NURSING PROG Normal [facility] NUTRITIONon 10-11-2022 NUTRITION Normal [facility] OPERATIVE NOon 10-11-2022 OPERATIVE NO Normal [facility] XR CHEST 1V FRONTAL PORTon 0 10-11-2022 XR CHEST 1V FRONTAL PORT Normal [facility] ALLIED HEALTHon 10-10-2022 ALLIED HEALTH Normal [facility] Basic metabolic 2000 panelon 10-10-2022 Anion gap [Moles/Vol] 12 mmol/L Normal 9-18 [facility] Comment on above: Order Comment: Speci men Type: BLOOD SPECIMENOrdering Facility: [facility] Address: [address] [place] [address] Performed By: #### 2 4321-2 ####[facility] LABCLIA [id number] [place] [address] [place] Calcium [Mass/Vol] 9.4 mg/dL Normal 8.5-10.2 [facility] Comment on above: Order Comment: Speci men Type: BLOOD SPECIMENOrdering Facility: [facility] Address: [address] [place], [place] [address] Performed By: #### 2 4321-2 ####[facility] LABCLIA [id number] [place] [address] [place] Chloride [Moles/Vol] 106 mmol/L High 97-105 [facility] Comment on above: Order Comment: Speci men Type: BLOOD SPECIMENOrdering Facility: [facility] Address: [address] [place] [address] Performed By: #### 2 4321-2 ####[facility] LABCLIA [id number] [place] [address] [place] CO2 [Moles/Vol] 22 mmol/L Normal 22-30 [facility] Comment on above: Order Comment: Speci men Type: BLOOD SPECIMENOrdering Facility: [facility] Address: [address] Performed By: #### 2 4321-2 ####[facility] LABCLIA [id number] [place] [address] [place] Creatinine [Mass/Vol] 0.74 mg/dL Normal 0.73-1.22 [facility] Comment on above: Order Comment: Cierra gabbie Type: BLOOD SPECIMENOrdering Facility: [facility] Address: [address] [address] Performed By: #### 2 4321-2 ####[facility] LABCLIA [id number] [place] [address] [place] ESTIMATED GLOMERULAR FILTRATION RATE 99 mL/min/1.73m??? Normal >=60 [facility] Comment on above: Order Comment: Guadalupecarter cartwright Type: BLOOD SPECIMENOrdering Facility: [facility] Address: [address] [address] Result Comment: Ignacia mated Glomerular Filtration Rate [...] Performed By: #### 2 4321-2 ####[facility] LABCLIA [id number] [place] [address] [place] Glucose [Mass/Vol] 90 mg/dL Normal 74-99 [facility] Comment on above: Order Comment: Cierra cartwright Type: BLOOD SPECIMENOrdering Facility: [facility] Address: [address] [address] Result Comment: The [place] [employer] (ADA) provides guidance for cutoff [...] Standards of Medical Care in Diabetes 2016, [place] [employer]. Diabetes Care. 2016.39(Suppl 1). Performed By: #### 2 4321-2 ####[facility] LABCLIA [id number] [place] [address] [place] Potassium [Moles/Vol] 3.6 mmol/L Low 3.7-5.1 [facility] Comment on above: Order Comment: Speci men Type: BLOOD SPECIMENOrdering Facility: [facility] Address: [address] [address] Performed By: #### 2 4321-2 ####[facility] LABIA [id number] [place] [address] [place] Sodium [Moles/Vol] 140 mmol/L Normal 136-144 [facility] Comment on above: Order Comment: Speci men Type: BLOOD SPECIMENOrdering Facility: [facility] Address: [address] [address] Performed By: #### 2 4321-2 ####[facility] LABIA [id number] [place] [address] [place] Urea nitrogen [Mass/Vol] 7 mg/dL Low 9-24 [facility] Comment on above: Order Comment: Speci men Type: BLOOD SPECIMENOrdering Facility: [facility] Address: [address] [address] Performed By: #### 2 4321-2 ####[facility] LABIA [id number] [place] [address] [place] CBC W Auto Differential pane l (Bld)on 10-10-2022 Basophils (Bld) [#/Vol] 0.05 10*3/uL Normal <0.11 [facility] Comment on above: Order Comment: Speci men Type: BLOOD SPECIMENOrdering Facility: [facility] Address: [address] [address] Performed By: #### 5 7021-8 ####[facility] LABCLIA [id number] [place] [address] [place] Basophils/100 WBC (Bld) 0.7 % Normal [facility] Comment on above: Order Comment: Speci men Type: BLOOD SPECIMENOrdering Facility: [facility] Address: [address] [place] [address] Performed By: #### 5 7021-8 ####[facility] LABCLIA [id number] [place] [address] [place] Differential cell count method Nom (Bld) Auto Normal [facility] Comment on above: Order Comment: Speci men Type: BLOOD SPECIMENOrdering Facility: [facility] Address: [address] [place] [address] Performed By: #### 5 7021-8 ####[facility] LABCLIA [id number] [place] [address] [place] Eosinophils (Bld) [#/Vol] 0.26 10*3/uL Normal <0.46 [facility] Comment on above: Order Comment: Speci men Type: BLOOD SPECIMENOrdering Facility: [facility] Address: [address] [place] [address] Performed By: #### 5 7021-8 ####[facility] LABCLIA [id number] [address] [place] Eosinophils/100 WBC (Bld) 3.6 % Normal [facility] Comment on above: Order Comment: Speci men Type: BLOOD SPECIMENOrdering Facility: [facility] Address: [address] [place], [place] [address] Performed By: #### 5 7021-8 ####[facility] LABCLIA [id number] [place] [address] [place] Erythrocyte distribution width (RBC) [Ratio] 14.0 % Normal 11.5-15.0 [facility] Comment on above: Order Comment: Speci men Type: BLOOD SPECIMENOrdering Facility: [facility] Address: [address] Performed By: #### 5 7021-8 ####[facility] LABCLIA [id number] [address] [place] Hematocrit (Bld) [Volume fraction] 32.2 % Low 39.0-51.0 [facility] Comment on above: Order Comment: Speci men Type: BLOOD SPECIMENOrdering Facility: [facility] Address: [address] [place], [place] [address] Performed By: #### 5 7021-8 ####[facility] LABIA [id number] [place] [address] [place] Hemoglobin (Bld) [Mass/Vol] 10.4 g/dL Low 13.0-17.0 [facility] Comment on above: Order Comment: Speci men Type: BLOOD SPECIMENOrdering Facility: [facility] Address: [address] [place], [place] [address] Performed By: #### 5 7021-8 ####[facility] LABIA [id number] [address] [place] Immature granulocytes (Bld) [#/Vol] 0.03 10*3/uL Normal <0.10 [facility] Comment on above: Order Comment: Speci men Type: BLOOD SPECIMENOrdering Facility: [facility] Address: [address] [place], [place] [address] Performed By: #### 5 7021-8 ####[facility] LABCLIA [id number] [address] [place] Immature granulocytes/100 WBC (Bld) 0.4 % Normal [facility] Comment on above: Order Comment: Speci men Type: BLOOD SPECIMENOrdering Facility: [facility] Address: [address] [place], [place] [address] Performed By: #### 5 7021-8 ####[facility] LABCLIA [id number] [place] [address] [place] Lymphocytes (Bld) [#/Vol] 2.29 10*3/uL Normal 1.00-4.00 [facility] Comment on above: Order Comment: Speci men Type: BLOOD SPECIMENOrdering Facility: [facility] Address: [address] [place] [address] Performed By: #### 5 7021-8 ####[facility] LABIA [id number] [address] [place] Lymphocytes/100 WBC (Bld) 31.4 % Normal [facility] Comment on above: Order Comment: Speci men Type: BLOOD SPECIMENOrdering Facility: [facility] Address: [address] [place] [address] Performed By: #### 5 7021-8 ####[facility] LABIA [id number] [address] [place] MCH (RBC) [Entitic mass] 27.4 pg Normal 26.0-34.0 [facility] Comment on above: Order Comment: Speci men Type: BLOOD SPECIMENOrdering Facility: [facility] Address: [address] [place] [address] Performed By: #### 5 7021-8 ####[facility] LABIA [id number] [place] [address] [place] MCHC (RBC) [Mass/Vol] 32.3 g/dL Normal 30.5-36.0 [facility] Comment on above: Order Comment: Speci men Type: BLOOD SPECIMENOrdering Facility: [facility] Address: [address] [place], [place] [address] Performed By: #### 5 7021-8 ####[facility] LABIA [id number] [address] [place] MCV (RBC) [Entitic vol] 84.7 fL Normal 80.0-100.0 [facility] Comment on above: Order Comment: Speci men Type: BLOOD SPECIMENOrdering Facility: [facility] Address: [address] Performed By: #### 5 7021-8 ####[facility] LABCLIA [id number] [place] [address] [place] Monocytes (Bld) [#/Vol] 0.72 10*3/uL Normal <0.87 [facility] Comment on above: Order Comment: Speci men Type: BLOOD SPECIMENOrdering Facility: [facility] Address: [address] [place], [place] [address] Performed By: #### 5 7021-8 ####[facility] LABCLIA [id number] [place] [address] [place] Monocytes/100 WBC (Bld) 9.9 % Normal [facility] Comment on above: Order Comment: Speci men Type: BLOOD SPECIMENOrdering Facility: [facility] Address: [address] [place], [place] [address] Performed By: #### 5 7021-8 ####[facility] LABCLIA [id number] [place] [address] [place] Neutrophils (Bld) [#/Vol] 3.94 10*3/uL Normal 1.45-7.50 [facility] Comment on above: Order Comment: Speci men Type: BLOOD SPECIMENOrdering Facility: [facility] Address: [address] Performed By: #### 5 7021-8 ####[facility] LABCLIA [id number] [place] [address] [place] Neutrophils/100 WBC (Bld) 54.0 % Normal [facility] Comment on above: Order Comment: Speci men Type: BLOOD SPECIMENOrdering Facility: [facility] Address: [address] Performed By: #### 5 7021-8 ####[facility] LABCLIA [id number] [place] [address] [place] Nucleated RBC (Bld) [#/Vol] 10*3/uL Normal <0.01 [facility] Comment on above: Order Comment: Speci men Type: BLOOD SPECIMENOrdering Facility: [facility] Address: [address] [place] [id number] Performed By: #### 5 7021-8 ####[facility] LABCLIA [id number] [place] [address] [place] Nucleated RBC/100 WBC (Bld) [Ratio] 0.0 /100 WBC Normal [facility] Comment on above: Order Comment: Speci men Type: BLOOD SPECIMENOrdering Facility: [facility] Address: [address] [place] [address] Performed By: #### 5 7021-8 ####[facility] LABIA [id number] [place] [address] [place] Platelet mean volume (Bld) [Entitic vol] 10.0 fL Normal 9.0-12.7 [facility] Comment on above: Order Comment: Speci men Type: BLOOD SPECIMENOrdering Facility: [facility] Address: [address] [place] [address] Performed By: #### 5 7021-8 ####[facility] LABIA [id number] [place] [address] [place] Platelets (Bld) [#/Vol] 246 10*3/uL Normal 150-400 [facility] Comment on above: Order Comment: Speci men Type: BLOOD SPECIMENOrdering Facility: [facility] Address: [address] [place] [address] Performed By: #### 5 7021-8 ####[facility] LABIA [id number] [address] [place] RBC (Bld) [#/Vol] 3.80 10*6/uL Low 4.20-6.00 [facility] Comment on above: Order Comment: Speci men Type: BLOOD SPECIMENOrdering Facility: [facility] Address: [address] Performed By: #### 5 7021-8 ####[facility] LABCLIA [id number] [place] [address] [place] WBC (Bld) [#/Vol] 7.29 10*3/uL Normal 3.70-11.00 [facility] Comment on above: Order Comment: Speci men Type: BLOOD SPECIMENOrdering Facility: [facility] Address: [address] [place], [place] [address] Performed By: #### 5 7021-8 ####[facility] LABCLIA [id number] [place] [address] [place] XR CHEST 1V FRONTAL PORTon 0 10-10-2022 XR CHEST 1V FRONTAL PORT Normal [facility] HISTORY PHYSICALon HISTORY PHYSICAL Normal [facility] CASE MANAGEMon 09-26-2022 CASE MANAGEM Normal [facility] CNDSon 09-26-2022 CNDS Normal [facility] Renal function 2000 panelon 09-26-2022 Albumin [Mass/Vol] 3.3 g/dL Low 3.9-4.9 [facility] Comment on above: Order Comment: Speci men Type: BLOOD SPECIMENOrdering Facility: [facility] Address: [address] Performed By: #### 2 4362-6 ####[facility] LABCLIA [id number] [place] [address] [place] Anion gap [Moles/Vol] 9 mmol/L Normal 9-18 [facility] Comment on above: Order Comment: Speci men Type: BLOOD SPECIMENOrdering Facility: [facility] Address: [address] [place], [place] [address] Performed By: #### 2 4362-6 ####[facility] LABCLIA [id number] [place] [address] [place] Calcium [Mass/Vol] 9.0 mg/dL Normal 8.5-10.2 [facility] Comment on above: Order Comment: Speci men Type: BLOOD SPECIMENOrdering Facility: [facility] Address: [address] Performed By: #### 2 4362-6 ####[facility] LABCLIA [id number] [place] [address] [place] Chloride [Moles/Vol] 105 mmol/L Normal 97-105 [facility] Comment on above: Order Comment: Speci men Type: BLOOD SPECIMENOrdering Facility: [facility] Address: [address] [place], [place] [address] Performed By: #### 2 4362-6 ####[facility] LABCLIA [id number] [place] [address] [place] CO2 [Moles/Vol] 23 mmol/L Normal 22-30 [facility] Comment on above: Order Comment: Speci men Type: BLOOD SPECIMENOrdering Facility: [facility] Address: [address] [place], [place] [address] Performed By: #### 2 4362-6 ####[facility] LABCLIA [id number] [place] [address] [place] Creatinine [Mass/Vol] 0.74 mg/dL Normal 0.73-1.22 [facility] Comment on above: Order Comment: Speci men Type: BLOOD SPECIMENOrdering Facility: [facility] Address: [address] Performed By: #### 2 4362-6 ####[facility] LABCLIA [id number] [place] [address] [place] ESTIMATED GLOMERULAR FILTRATION RATE 99 mL/min/1.73m??? Normal >=60 [facility] Comment on above: Order Comment: Cierra cartwright Type: BLOOD SPECIMENOrdering Facility: [facility] Address: [address] [place] [address] Result Comment: Ignacia mated Glomerular Filtration Rate [...] actual GFR. Performed By: #### 2 4362-6 ####[facility] LABIA [id number] [place] [address] [place] Glucose [Mass/Vol] 104 mg/dL High 74-99 [facility] Comment on above: Order Comment: Cierra cartwright Type: BLOOD SPECIMENOrdering Facility: [facility] Address: [address] [place] [address] Result Comment: The [place] [employer] (ADA) provides guidance for cutoff [...] Standards of Medical Care in Diabetes 2016, [place] [employer]. Diabetes Care. 2016.39(Suppl 1). Performed By: #### 2 4362-6 ####[facility] LABIA [id number] [place] [address] [place] Phosphate [Mass/Vol] 2.6 mg/dL Low 2.7-4.8 [facility] Comment on above: Order Comment: Speci men Type: BLOOD SPECIMENOrdering Facility: [facility] Address: [address] [address] Performed By: #### 2 4362-6 ####[facility] LABCLIA [id number] [place] [address] [place] Potassium [Moles/Vol] 3.9 mmol/L Normal 3.7-5.1 [facility] Comment on above: Order Comment: Speci men Type: BLOOD SPECIMENOrdering Facility: [facility] Address: [address] [place] [address] Performed By: #### 2 4362-6 ####[facility] LABCLIA [id number] [place] [address] [place] Sodium [Moles/Vol] 137 mmol/L Normal 136-144 [facility] Comment on above: Order Comment: Speci men Type: BLOOD SPECIMENOrdering Facility: [facility] Address: [address] [place] [address] Performed By: #### 2 4362-6 ####[facility] LABCLIA [id number] [place] [address] [place] Urea nitrogen [Mass/Vol] 5 mg/dL Low 9-24 [facility] Comment on above: Order Comment: Speci men Type: BLOOD SPECIMENOrdering Facility: [facility] Address: [address] [place], [place] [address] Performed By: #### 2 4362-6 ####[facility] LABCLIA [id number] [place] [address] [place] CASE MANAGEMon 09-25-2022 CASE MANAGEM Normal [facility] NURSING PROGon 09-25-2022 NURSING PROG Normal [facility] Renal function 2000 panelon 09-25-2022 Albumin [Mass/Vol] 3.1 g/dL Low 3.9-4.9 [facility] Comment on above: Order Comment: Speci men Type: BLOOD SPECIMENOrdering Facility: [facility] Address: [address] Performed By: #### 2 4362-6, 8 ####[facility] LABCLIA [id number] [place] [address] [place] Anion gap [Moles/Vol] 10 mmol/L Normal 9-18 [facility] Comment on above: Order Comment: Speci men Type: BLOOD SPECIMENOrdering Facility: [facility] Address: [address] Performed By: #### 2 4362-6, 2570-10 ####[facility] LABIA [id number] [place] [address] [place] Calcium [Mass/Vol] 8.7 mg/dL Normal 8.5-10.2 [facility] Comment on above: Order Comment: Speci men Type: BLOOD SPECIMENOrdering Facility: [facility] Address: [address] Performed By: #### 2 4362-6, 2570-10 ####[facility] LABIA [id number] [place] [address] [place] Chloride [Moles/Vol] 106 mmol/L High 97-105 [facility] Comment on above: Order Comment: Speci men Type: BLOOD SPECIMENOrdering Facility: [facility] Address: [address] [place] [address] Performed By: #### 2 4362-6, 8 ####[facility] LABCLIA [id number] [place] [address] [place] CO2 [Moles/Vol] 23 mmol/L Normal 22-30 [facility] Comment on above: Order Comment: Speci men Type: BLOOD SPECIMENOrdering Facility: [facility] Address: [address] Performed By: #### 2 4362-6, 8 ####[facility] LABCLIA [id number] [place] [address] [place] [facility] Creatinine [Mass/Vol] 0.73 mg/dL Normal 0.73-1.22 [facility] Comment on above: Order Comment: Cierra cartwright Type: BLOOD SPECIMENOrdering Facility: [facility] Address: [address] [place] [place] [address] Performed By: #### 2 4362-6, 8 ####[facility] LABIA [id number] [place] [address] [place] ESTIMATED GLOMERULAR FILTRATION RATE 100 mL/min/1.73m??? Normal >=60 [facility] Comment on above: Order Comment: Cierra cartwright Type: BLOOD SPECIMENOrdering Facility: [facility] Address: [address] [address] Result Comment: Ignacia mated Glomerular Filtration Rate [...] actual GFR. Performed By: #### 2 4362-6, 8 ####[facility] LABIA [id number] [place] [address] [place] Glucose [Mass/Vol] 83 mg/dL Normal 74-99 [facility] Comment on above: Order Comment: Cierra cartwright Type: BLOOD SPECIMENOrdering Facility: [facility] Address: [address] [address] Result Comment: The [place] Diabetes Association (ADA) provides guidance for cutoff [...] Standards of Medical Care in Diabetes 2016, [place] [employer]. Diabetes Care. 2016.39(Suppl 1). Performed By: #### 2 4362-6, 8 ####[facility] LABCLIA [id number] [place] [address] [place] Phosphate [Mass/Vol] 2.6 mg/dL Low 2.7-4.8 [facility] Comment on above: Order Comment: Speci men Type: BLOOD SPECIMENOrdering Facility: [facility] Address: [address] [place] [address] Performed By: #### 2 4362-6, 8 ####[facility] LABCLIA [id number] [place] [address] [place] Potassium [Moles/Vol] 4.1 mmol/L Normal 3.7-5.1 [facility] Comment on above: Order Comment: Speci men Type: BLOOD SPECIMENOrdering Facility: [facility] Address: [address] [address] Performed By: #### 2 4362-6, 8 ####[facility] LABCLIA [id number] [place] [address] [place] Sodium [Moles/Vol] 139 mmol/L Normal 136-144 [facility] Comment on above: Order Comment: Speci men Type: BLOOD SPECIMENOrdering Facility: [facility] Address: [address] [place] [address] Performed By: #### 2 4362-6, 8 ####[facility] LABCLIA [id number] [place] [id number] [place] Urea nitrogen [Mass/Vol] 7 mg/dL Low 9-24 [facility] Comment on above: Order Comment: Speci men Type: BLOOD SPECIMENOrdering Facility: [facility] Address: [address] [place] [address] Performed By: #### 2 4362-6, 2570-10 ####[facility] LABCLIA [id number] [address] [place] Trigl SerPl-mCncon 3 Triglyceride [Mass/Vol] 172 mg/dL High <150 [facility] Comment on above: Order Comment: Speci men Type: BLOOD SPECIMENOrdering Facility: [facility] Address: [address] [place] [address] Result Comment: <150 mg/dL, Normal 150-199 mg/dL, Borderline high 200-499 mg/dL, High>499 mg/dL, Very highReference:1. National Cholesterol Education Program ATP III Guideline At-A-Glance Quick Desk Reference: National Heart, Lung, and Blood [place]. National Institutes of Health. 2001: NIH Publication No. 01-3305. Performed By: #### 2 4362-6, 2570-10 ####[facility] LABIA [id number] [address] [place] Triglyceride [Mass/Vol]on FASTING TIME 8 hrs Normal [facility] Comment on above: Order Comment: Speci men Type: BLOOD SPECIMENOrdering Facility: [facility] Address: [address] Performed By: #### 2 4362-6, 2570-10 ####[facility] LABIA [id number] [address] [place] XR ABDOMEN 1V SUPINEon 09-25 XR ABDOMEN 1V SUPINE Normal [facility] BRIEF OP NOTon 09-24-2022 BRIEF OP NOT Normal [facility] CASE MANAGEMon 09-24-2022 CASE MANAGEM Normal [facility] CASE MANAGEM Normal [facility] CONSULT PROGon 09-24-2022 CONSULT PROG Normal [facility] IR CENTRAL CATH PLACEMENTon 09-24-2022 IR CENTRAL CATH PLACEMENT Normal [facility] Magnesium SerPl-mCncon 09-24 Magnesium [Mass/Vol] 2.0 mg/dL Normal 1.7-2.3 [facility] Comment on above: Order Comment: Speci men Type: BLOOD SPECIMENOrdering Facility: [facility] Address: [address] Performed By: #### 1 9123-9, 23352-4 ####[facility] LABCLIA [id number] [place] [address] [place] PT EDon 09-24-2022 PT ED Normal [facility] Renal function 2000 panelon 09-24-2022 Albumin [Mass/Vol] 2.9 g/dL Low 3.9-4.9 [facility] Comment on above: Order Comment: Speci men Type: BLOOD SPECIMENOrdering Facility: [facility] Address: [address] Performed By: #### 1 9123-9, 84934-8 ####[facility] LABCLIA [id number] [place] [address] [place] Anion gap [Moles/Vol] 7 mmol/L Low 9-18 [facility] Comment on above: Order Comment: Speci men Type: BLOOD SPECIMENOrdering Facility: [facility] Address: [address] Performed By: #### 1 9123-9, 89920-5 ####[facility] LABCLIA [id number] [place] [address] [place] Calcium [Mass/Vol] 8.6 mg/dL Normal 8.5-10.2 [facility] Comment on above: Order Comment: Speci men Type: BLOOD SPECIMENOrdering Facility: [facility] Address: [address] Performed By: #### 1 9123-9, 30966-8 ####[facility] LABCLIA [id number] [place] [address] [place] Chloride [Moles/Vol] 106 mmol/L High 97-105 [facility] Comment on above: Order Comment: Speci men Type: BLOOD SPECIMENOrdering Facility: [facility] Address: [address] [place], [place] [address] Performed By: #### 1 9123-9, 58070-2 ####[facility] LABIA [id number] [place] [address] [place] CO2 [Moles/Vol] 24 mmol/L Normal 22-30 [facility] Comment on above: Order Comment: Speci men Type: BLOOD SPECIMENOrdering Facility: [facility] Address: [address] [place] [address] Performed By: #### 1 9123-9, ####[facility] LABCLIA [id number] [place] [address] [place] Creatinine [Mass/Vol] 0.71 mg/dL Low 0.73-1.22 [facility] Comment on above: Order Comment: Speci men Type: BLOOD SPECIMENOrdering Facility: [facility] Address: [address] [place] [address] Performed By: #### 1 9123-9, 19402-0 ####[facility] LABIA [id number] [place] [address] [place] ESTIMATED GLOMERULAR FILTRATION RATE 101 mL/min/1.73m??? Normal >=60 [facility] Comment on above: Order Comment: Speci men Type: BLOOD SPECIMENOrdering Facility: [facility] Address: [address] [place] [address] Result Comment: Ignacia mated Glomerular Filtration Rate [...] actual GFR. Performed By: #### 1 9123-9, 48789-2 ####[facility] LABCLIA [id number] [address] [address] [place] Glucose [Mass/Vol] 96 mg/dL Normal 74-99 [facility] Comment on above: Order Comment: Cierra cartwright Type: BLOOD SPECIMENOrdering Facility: [facility] Address: [address] [place] [address] Result Comment: The [place] Diabetes Association (ADA) provides guidance for cutoff [...] Standards of Medical Care in Diabetes 2016, [place] [employer]. Diabetes Care. 2016.39(Suppl 1). Performed By: #### 1 9123-9, 17740-4 ####[facility] LABCLIA [id number] [address] [address] [place] Phosphate [Mass/Vol] 3.2 mg/dL Normal 2.7-4.8 [facility] Comment on above: Order Comment: Cierra cartwright Type: BLOOD SPECIMENOrdering Facility: [facility] Address: [address] [place] [address] Performed By: #### 1 9123-9, 36658-5 ####[facility] LABCLIA [id number] [address] [address] [place] Potassium [Moles/Vol] 3.9 mmol/L Normal 3.7-5.1 [facility] Comment on above: Order Comment: Speci men Type: BLOOD SPECIMENOrdering Facility: [facility] Address: [address] [place] [address] Performed By: #### 1 9123-9, 47687-6 ####[facility] LABIA [id number] [place] [address] [place] Sodium [Moles/Vol] 137 mmol/L Normal 136-144 [facility] Comment on above: Order Comment: Speci men Type: BLOOD SPECIMENOrdering Facility: [facility] Address: [address] [place] [address] Performed By: #### 1 9123-9, 77710-1 ####[facility] [id number] [address] [place] Urea nitrogen [Mass/Vol] 9 mg/dL Normal 9-24 [facility] Comment on above: Order Comment: Speci men Type: BLOOD SPECIMENOrdering Facility: [facility] Address: [address] [place] [address] Performed By: #### 1 9123-9, 34801-6 ####[facility] LABIA [id number] [place] [address] [place] SARS-CoV-2 RNA Resp Ql ROSSANA+p robeon 09-24-2022 SARS-CoV-2 (COVID-19) RNA ROSSANA+probe Ql (Resp) COVID 19 RESULT: Not detected The method used is RT-PCR or an equivalent NAAT method. Reference Range(the expected result in uninfected individuals): Not detected Normal [facility] Comment on above: Performed By: #### 9 4500-6 ####[facility] LABIA [id number] [place] [address] [place] THERAPY NTon 09-24-2022 THERAPY NT Normal [facility] XR ABDOMEN 1V SUPINEon 09-24 XR ABDOMEN 1V SUPINE Normal [facility] CASE MANAGEMon 09-23-2022 CASE MANAGEM Normal [facility] CONSULT PROGon 09-23-2022 CONSULT PROG Normal [facility] THERAPY NTon 09-23-2022 THERAPY NT Normal [facility] THERAPY NT Normal [facility] XR ABDOMEN 1V SUPINEon 09-23 XR ABDOMEN 1V SUPINE Normal [facility] ALLIED HEALTHon 09-22-2022 ALLIED HEALTH Normal [facility] Bacteria Bld Culton 09-23-19 23 Bacteria identified Cx Nom (Bld) CULTURE, BLOOD: No growth 5 days Normal [facility] Comment on above: Performed By: #### 6 00-7 ####[facility] LABCLIA [id number] [place] [address] [place] CASE MGT INIT ASSESon 2022 CASE MGT INIT ASSES Normal [facility] CBC panel Auto (Bld)on 09-22 Erythrocyte distribution width (RBC) [Ratio] 13.8 % Normal 11.5-15.0 [facility] Comment on above: Order Comment: Speci men Type: BLOOD SPECIMENOrdering Facility: [facility] Address: [address] [place] [address] Performed By: #### 5 8410-2 ####[facility] LABCLIA [id number] [place] [address] [place] Hematocrit (Bld) [Volume fraction] 30.0 % Low 39.0-51.0 [facility] Comment on above: Order Comment: Speci men Type: BLOOD SPECIMENOrdering Facility: [facility] Address: [address] [place] [address] Performed By: #### 5 8410-2 ####[facility] LABCLIA [id number] [place] [address] [place] Hemoglobin (Bld) [Mass/Vol] 9.7 g/dL Low 13.0-17.0 [facility] Comment on above: Order Comment: Speci men Type: BLOOD SPECIMENOrdering Facility: [facility] Address: [address] Performed By: #### 5 8410-2 ####[facility]UN[facility] [id number] [address] STATES OF [facility] MCH (RBC) [Entitic mass] 27.7 pg Normal 26.0-34.0 [facility] Comment on above: Order Comment: Speci men Type: BLOOD SPECIMENOrdering Facility: [facility] Address: [address] Performed By: #### 5 8410-2 ####[facility] [id number] [address] [place] MCHC (RBC) [Mass/Vol] 32.3 g/dL Normal 30.5-36.0 [facility] Comment on above: Order Comment: Speci men Type: BLOOD SPECIMENOrdering Facility: [facility] Address: [address] Performed By: #### 5 8410-2 ####[facility] [id number] [address] [place] MCV (RBC) [Entitic vol] 85.7 fL Normal 80.0-100.0 [facility] Comment on above: Order Comment: Speci men Type: BLOOD SPECIMENOrdering Facility: [facility] Address: [address] Performed By: #### 5 8410-2 ####[facility] [id number] [address] [place] Nucleated RBC (Bld) [#/Vol] 0.02 10*3/uL High <0.01 [facility] Comment on above: Order Comment: Speci men Type: BLOOD SPECIMENOrdering Facility: [facility] Address: [address] Performed By: #### 5 8410-2 ####[facility] LABCLIA [id number] [place] [address] [place] Platelet mean volume (Bld) [Entitic vol] 10.9 fL Normal 9.0-12.7 [facility] Comment on above: Order Comment: Speci men Type: BLOOD SPECIMENOrdering Facility: [facility] Address: [address] [place], [place] [address] Performed By: #### 5 8410-2 ####[facility] LABIA [id number] [place] [address] [place] Platelets (Bld) [#/Vol] 137 10*3/uL Low 150-400 [facility] Comment on above: Order Comment: Speci men Type: BLOOD SPECIMENOrdering Facility: [facility] Address: [address] [place], [place] [address] Result Comment: Resu lts checked and verified.No clot detected. Performed By: #### 5 8410-2 ####[facility] LABIA [id number] [place] [address] [place] RBC (Bld) [#/Vol] 3.50 10*6/uL Low 4.20-6.00 [facility] Comment on above: Order Comment: Speci men Type: BLOOD SPECIMENOrdering Facility: [facility] Address: [address] [place] [address] Performed By: #### 5 8410-2 ####[facility] LABIA [id number] [place] [address] [place] WBC (Bld) [#/Vol] 6.05 10*3/uL Normal 3.70-11.00 [facility] Comment on above: Order Comment: Speci men Type: BLOOD SPECIMENOrdering Facility: [facility] Address: [address] [place], [place] [address] Performed By: #### 5 8410-2 ####[facility] LABIA [id number] [place] [address] [place] CONSULTon 09-22-2022 CONSULT Normal [facility] CONSULT PROGon 09-22-2022 CONSULT PROG Normal [facility] Comprehensive metabolic 2000 panelon 09-22-2022 Albumin [Mass/Vol] 3.0 g/dL Low 3.9-4.9 [facility] Comment on above: Order Comment: Speci men Type: BLOOD SPECIMENOrdering Facility: [facility] Address: [address] [place] [address] Performed By: #### 2 571-8, 2777-1, 65915-3, 42534-3 ####[facility] LABIA [id number] [place] [address] [place] ALP [Catalytic activity/Vol] 53 U/L Normal 38-113 [facility] Comment on above: Order Comment: Speci men Type: BLOOD SPECIMENOrdering Facility: [facility] Address: [address] [place] [address] Performed By: #### 2 571-8, 2777-1, 99016-4, 01510-7 ####[facility] [id number] [place] [address] [place] ALT [Catalytic activity/Vol] 18 U/L Normal 10-54 [facility] Comment on above: Order Comment: Speci men Type: BLOOD SPECIMENOrdering Facility: [facility] Address: [address] [place], [place] [address] Performed By: #### 2 571-8, 2777-1, 66427-6, 15198-7 ####[facility] LABIA [id number] [place] [address] [place] Anion gap [Moles/Vol] 9 mmol/L Normal 9-18 [facility] Comment on above: Order Comment: Speci men Type: BLOOD SPECIMENOrdering Facility: [facility] Address: [address] [place] [address] Performed By: #### 2 571-8, 2777-1, 12646-1, 63802-3 ####[facility] LABCLIA [id number] [place] [address] [place] AST [Catalytic activity/Vol] 16 U/L Normal 14-40 [facility] Comment on above: Order Comment: Speci men Type: BLOOD SPECIMENOrdering Facility: [facility] Address: [address] [place] [address] Performed By: #### 2 571-8, 2777-1, 95030-6, 44296-8 ####[facility] LABCLIA [id number] [place] [address] [place] Bilirubin [Mass/Vol] 0.9 mg/dL Normal 0.2-1.3 [facility] Comment on above: Order Comment: Speci men Type: BLOOD SPECIMENOrdering Facility: [facility] Address: [address] [place] [address] Performed By: #### 2 571-8, 2777-1, 05288-1, 21941-4 ####[facility] LABCLIA [id number] [place] [address] [place] Calcium [Mass/Vol] 8.9 mg/dL Normal 8.5-10.2 [facility] Comment on above: Order Comment: Speci men Type: BLOOD SPECIMENOrdering Facility: [facility] Address: [address] [place], [place] [address] Performed By: #### 2 571-8, 2777-1, 81218-6, 65355-4 ####[facility] LABCLIA [id number] [place] [address] [place] Chloride [Moles/Vol] 107 mmol/L High 97-105 [facility] Comment on above: Order Comment: Speci men Type: BLOOD SPECIMENOrdering Facility: [facility] Address: [address] [place], [place] [address] Performed By: #### 2 571-8, 277-1, , ####[facility] LABIA [id number] [place] [address] [place] CO2 [Moles/Vol] 24 mmol/L Normal 22-30 [facility] Comment on above: Order Comment: Speci men Type: BLOOD SPECIMENOrdering Facility: [facility] Address: [address] [place] [address] Performed By: #### 2 571-8, 277-, , ####[facility] LABIA [id number] [place] [address] [place] Creatinine [Mass/Vol] 0.84 mg/dL Normal 0.73-1.22 [facility] Comment on above: Order Comment: Speci men Type: BLOOD SPECIMENOrdering Facility: [facility] Address: [address] [place] [address] Performed By: #### 2 571-8, 27709-25, , ####[facility] LABIA [id number] [place] [address] [place] ESTIMATED GLOMERULAR FILTRATION RATE 96 mL/min/1.73m??? Normal >=60 [facility] Comment on above: Order Comment: Speci men Type: BLOOD SPECIMENOrdering Facility: [facility] Address: [address] [place] [address] Result Comment: Ignacia mated Glomerular Filtration Rate [...] GFR. Performed By: #### 2 571-8, 2777-1, 13128-6, ####[facility] LABCLIA [id number] [address] [address] [place] Glucose [Mass/Vol] 121 mg/dL High 74-99 [facility] Comment on above: Order Comment: Speci men Type: BLOOD SPECIMENOrdering Facility: [facility] Address: [address] [place], [place] [address] Result Comment: The [place] Diabetes Association (ADA) provides guidance for cutoff [...] Standards of Medical Care in Diabetes 2016, [place] [employer]. Diabetes Care. 2016.39(Suppl 1). Performed By: #### 2 571-8, 2777-1, 33059-2, ####[facility] LABCLIA [id number] [address] [address] [place] Potassium [Moles/Vol] 3.7 mmol/L Normal 3.7-5.1 [facility] Comment on above: Order Comment: Speci men Type: BLOOD SPECIMENOrdering Facility: [facility] Address: [address] [place] [address] Performed By: #### 2 571-8, 2777-1, 28139-2, ####[facility] LABIA [id number] [address] [address] [place] Protein [Mass/Vol] 6.3 g/dL Normal 6.3-8.0 [facility] Comment on above: Order Comment: Speci men Type: BLOOD SPECIMENOrdering Facility: [facility] Address: [address] Performed By: #### 2 571-8, 2777-1, 94633-6, ####[facility] [facility]CLIA [id number] [place] [address] [place] Sodium [Moles/Vol] 140 mmol/L Normal 136-144 [facility] Comment on above: Order Comment: Speci men Type: BLOOD SPECIMENOrdering Facility: [facility] Address: [address] Performed By: #### 2 571-8, 2777-1, , ####[facility]CLIA [id number] [place] [address] [place] Urea nitrogen [Mass/Vol] 18 mg/dL Normal 9-24 [facility] Comment on above: Order Comment: Speci men Type: BLOOD SPECIMENOrdering Facility: [facility] Address: [address] Performed By: #### 2 571-8, 2777-1, , ####[facility] LABIA [id number] [place] [address] [place] Magnesium SerPl-mCncon 09-22 Magnesium [Mass/Vol] 1.6 mg/dL Low 1.7-2.3 [facility] Comment on above: Order Comment: Speci men Type: BLOOD SPECIMENOrdering Facility: [facility] Address: [address] Performed By: #### 2 571-8, 2777-1, 91972-8, ####[facility]CLIA [id number] [place] [address] [place] Phosphate SerPl-mCncon 09-22 Phosphate [Mass/Vol] 2.4 mg/dL Low 2.7-4.8 [facility] Comment on above: Order Comment: Speci men Type: BLOOD SPECIMENOrdering Facility: [facility] Address: [address] [place] [address] Performed By: #### 2 571-8, 2777-1, 86542-8, 61485-5 ####[facility]CLIA [id number] [place] [address] [place] Trigl SerPl-mCncon 3 Triglyceride [Mass/Vol] 213 mg/dL High <150 [facility] Comment on above: Order Comment: Speci men Type: BLOOD SPECIMENOrdering Facility: [facility] Address: [address] Result Comment: <150 mg/dL, Normal 150-199 mg/dL, Borderline high 200-499 mg/dL, High>499 mg/dL, Very highReference:1. National Cholesterol Education Program ATP III Guideline At-A-Glance Quick Desk Reference: National Heart, Lung, and Blood [place]. National Institutes of Health. 2001: NIH Publication No. 01-3305. Performed By: #### 2 571-8, 2777-1, 36031-2, ####[facility]CLIA [id number] [place] [id number] [place] Triglyceride [Mass/Vol]on FASTING TIME 8 hrs Normal [facility] Comment on above: Order Comment: Speci men Type: BLOOD SPECIMENOrdering Facility: [facility] Address: [place] [address] Performed By: #### 2 571-8, 2777-1, 55904-8, 03330-4 ####[facility]CLIA [id number] [place] [id number] [place] XR ABDOMEN 1V SUPINEon 09-22 XR ABDOMEN 1V SUPINE Normal [facility] CBC panel Auto (Bld)on 09-21 Erythrocyte distribution width (RBC) [Ratio] 14.3 % Normal 11.5-15.0 [facility] Comment on above: Order Comment: Speci men Type: BLOOD SPECIMENOrdering Facility: [facility] Address: [address] [place] [address] Performed By: #### 5 8410-2 ####[facility] LABIA [id number] [address] STATES OF [facility] Hematocrit (Bld) [Volume fraction] 30.0 % Low 39.0-51.0 [facility] Comment on above: Order Comment: Speci men Type: BLOOD SPECIMENOrdering Facility: [facility] Address: [address] [place] [address] Performed By: #### 5 8410-2 ####[facility] LABIA [id number] [address] OF [facility] Hemoglobin (Bld) [Mass/Vol] 9.4 g/dL Low 13.0-17.0 [facility] Comment on above: Order Comment: Speci men Type: BLOOD SPECIMENOrdering Facility: [facility] Address: [address] [place] [address] Performed By: #### 5 8410-2 ####[facility] LABIA [id number] [place] [address] [place] MCH (RBC) [Entitic mass] 27.7 pg Normal 26.0-34.0 [facility] Comment on above: Order Comment: Speci men Type: BLOOD SPECIMENOrdering Facility: [facility] Address: [address] [place] [address] Performed By: #### 5 8410-2 ####[facility] LABIA [id number] [address] [place] MCHC (RBC) [Mass/Vol] 31.3 g/dL Normal 30.5-36.0 [facility] Comment on above: Order Comment: Speci men Type: BLOOD SPECIMENOrdering Facility: [facility] Address: [address] [place], [place] [address] Performed By: #### 5 8410-2 ####[facility] LABIA [id number] [address] [place] MCV (RBC) [Entitic vol] 88.5 fL Normal 80.0-100.0 C [facility] Comment on above: Order Comment: Speci men Type: BLOOD SPECIMENOrdering Facility: [facility] Address: [address] [place], [place] [address] Performed By: #### 5 8410-2 ####[facility] [id number] [address] [place] Nucleated RBC (Bld) [#/Vol] 10*3/uL Normal <0.01 [facility] Comment on above: Order Comment: Speci men Type: BLOOD SPECIMENOrdering Facility: [facility] Address: [address] [place], [place] [address] Performed By: #### 5 8410-2 ####[facility] [id number] [address] [place] Platelet mean volume (Bld) [Entitic vol] 11.3 fL Normal 9.0-12.7 [facility] Comment on above: Order Comment: Speci men Type: BLOOD SPECIMENOrdering Facility: [facility] Address: [address] [place], [place] [address] Performed By: #### 5 8410-2 ####[facility]UN[facility] [id number] [place] [address] [place] Platelets (Bld) [#/Vol] 127 10*3/uL Low 150-400 [facility] Comment on above: Order Comment: Speci men Type: BLOOD SPECIMENOrdering Facility: [facility] Address: [address] [place], [place] [address] Result Comment: Resu lts checked and verified.No clot detected. Performed By: #### 5 8410-2 ####[facility]CLIA [id number] [place] [address] [place] RBC (Bld) [#/Vol] 3.39 10*6/uL Low 4.20-6.00 [facility] Comment on above: Order Comment: Speci men Type: BLOOD SPECIMENOrdering Facility: [facility] Address: [address] [place] [address] Performed By: #### 5 8410-2 ####[facility] LABIA [id number] [place] [address] [place] WBC (Bld) [#/Vol] 17.24 10*3/uL High 3.70-11.00 [facility] Comment on above: Order Comment: Speci men Type: BLOOD SPECIMENOrdering Facility: [facility] Address: [address] Performed By: #### 5 8410-2 ####[facility] LABIA [id number] [place] [address] [place] CONSULTon 09-21-2022 CONSULT Normal [facility] CONSULT PROGon 09-21-2022 CONSULT PROG Normal [facility] CONSULT PROG Normal [facility] Comprehensive metabolic 2000 panelon 09-21-2022 Albumin [Mass/Vol] 3.1 g/dL Low 3.9-4.9 [facility] Comment on above: Order Comment: Speci men Type: BLOOD SPECIMENOrdering Facility: [facility] Address: [address] Performed By: #### 2 777-1, 29803-5, 16290-9 ####[facility]CLIA [id number] [place] [address] [place] ALP [Catalytic activity/Vol] 56 U/L Normal 38-113 [facility] Comment on above: Order Comment: Speci men Type: BLOOD SPECIMENOrdering Facility: [facility] Address: [address] [place] [address] Performed By: #### 2 777-1, , ####[facility] LABCLIA [id number] [place] [address] [place] ALT [Catalytic activity/Vol] 24 U/L Normal 10-54 [facility] Comment on above: Order Comment: Speci men Type: BLOOD SPECIMENOrdering Facility: [facility] Address: [address] [place] [address] Performed By: #### 2 777-1, , ####[facility]CLIA [id number] [place] [address] [place] Anion gap [Moles/Vol] 13 mmol/L Normal 9-18 [facility] Comment on above: Order Comment: Speci men Type: BLOOD SPECIMENOrdering Facility: [facility] Address: [address] [place] [address] Performed By: #### 2 777-1, , ####[facility] LABCLIA [id number] [place] [address] [place] AST [Catalytic activity/Vol] 28 U/L Normal 14-40 [facility] Comment on above: Order Comment: Speci men Type: BLOOD SPECIMENOrdering Facility: [facility] Address: [address] Performed By: #### 2 777-1, , ####[facility] LABCLIA [id number] [place] [address] [place] Bilirubin [Mass/Vol] 0.8 mg/dL Normal 0.2-1.3 [facility] Comment on above: Order Comment: Speci men Type: BLOOD SPECIMENOrdering Facility: [facility] Address: [address] Performed By: #### 2 777-1, , ####[facility] LABCLIA [id number] [place] [address] [place] Calcium [Mass/Vol] 9.1 mg/dL Normal 8.5-10.2 [facility] Comment on above: Order Comment: Speci men Type: BLOOD SPECIMENOrdering Facility: [facility] Address: [address] Performed By: #### 2 777-1, , ####[facility] LABCLIA [id number] [place] [address] [place] Chloride [Moles/Vol] 107 mmol/L High 97-105 [facility] Comment on above: Order Comment: Speci men Type: BLOOD SPECIMENOrdering Facility: [facility] Address: [address] Performed By: #### 2 777-1, , ####[facility]CLIA [id number] [place] [address] [place] CO2 [Moles/Vol] 19 mmol/L Low 22-30 [facility] Comment on above: Order Comment: Speci men Type: BLOOD SPECIMENOrdering Facility: [facility] Address: [address] Performed By: #### 2 777-1, , ####[facility] LABCLIA [id number] [place] [id number] [place] Creatinine [Mass/Vol] 1.13 mg/dL Normal 0.73-1.22 [facility] Comment on above: Order Comment: Speci men Type: BLOOD SPECIMENOrdering Facility: [facility] Address: [address] [place] [address] Performed By: #### 2 777-1, 24392-9, 21760-9 ####[facility] LABIA [id number] [place] [address] [place] ESTIMATED GLOMERULAR FILTRATION RATE 71 mL/min/1.73m??? Normal >=60 [facility] Comment on above: Order Comment: Cierra cartwright Type: BLOOD SPECIMENOrdering Facility: [facility] Address: [address] [place] [address] Result Comment: Ignacia mated Glomerular Filtration Rate [...] actual GFR. Performed By: #### 2 777-1, 18890-6, ####[facility] LABIA [id number] [place] [address] [place] Glucose [Mass/Vol] 106 mg/dL High 74-99 [facility] Comment on above: Order Comment: Cierra cartwright Type: BLOOD SPECIMENOrdering Facility: [facility] Address: [address] [place] [address] Result Comment: The [place] [employer] Association (ADA) provides guidance for cutoff [...] Standards of Medical Care in Diabetes 2016, [place] [employer]. Diabetes Care. 2016.39(Suppl 1). Performed By: #### 2 777-, , ####[facility] LABCLIA [id number] [place] [address] [place] Potassium [Moles/Vol] 4.3 mmol/L Normal 3.7-5.1 [facility] Comment on above: Order Comment: Speci men Type: BLOOD SPECIMENOrdering Facility: [facility] Address: [address] [place] [address] Performed By: #### 2 777-1, , ####[facility] LABCLIA [id number] [place] [address] [place] Protein [Mass/Vol] 6.2 g/dL Low 6.3-8.0 [facility] Comment on above: Order Comment: Speci men Type: BLOOD SPECIMENOrdering Facility: [facility] Address: [address] [place], [place] [address] Performed By: #### 2 777-1, , ####[facility] LABCLIA [id number] [place] [address] [place] Sodium [Moles/Vol] 139 mmol/L Normal 136-144 [facility] Comment on above: Order Comment: Speci men Type: BLOOD SPECIMENOrdering Facility: [facility] Address: [address] [place] [address] Performed By: #### 2 777-1, , ####[facility] LABCLIA [id number] [place] [id number] [place] Urea nitrogen [Mass/Vol] 27 mg/dL High 9-24 [facility] Comment on above: Order Comment: Speci men Type: BLOOD SPECIMENOrdering Facility: [facility] Address: [address] [place] [id number] Performed By: #### 2 777-1, , ####[facility] LABCLIA [id number] [place] [id number] [place] HISTORY PHYSICALon HISTORY PHYSICAL Normal [facility] Magnesium SerPl-ncon 09-21 Magnesium [Mass/Vol] 1.9 mg/dL Normal 1.7-2.3 [facility] Comment on above: Order Comment: Speci men Type: BLOOD SPECIMENOrdering Facility: [facility] Address: [address] Performed By: #### 2 777-1, 76690-5, ####[facility] LABCLIA [id number] [place] [address] [place] NURSING PROGon 09-21-2022 NURSING PROG Normal [facility] Phosphate [facility] 09-21 Phosphate [Mass/Vol] 2.9 mg/dL Normal 2.7-4.8 [facility] Comment on above: Order Comment: Speci men Type: BLOOD SPECIMENOrdering Facility: [facility] Address: [address] Performed By: #### 2 777-1, , ####[facility] LABIA [id number] [place] [address] [place] XR ABDOMEN 1V SUPINEon 09-21 XR ABDOMEN 1V SUPINE Normal [facility] ARTERIAL BLOOD GASESon 09-20 Base deficit (BldA) [Moles/Vol] -1 mmol/L Normal -2-0 [facility] Comment on above: Order Comment: Speci men Type: ARTERIAL BLOOD SPECIMENOrdering Facility: [facility] Address: [place] [address] Performed By: #### A LLBG ####[facility] LABCLIA [id number] [place] [address] [place] Body temperature 98.6 [degF] Normal [facility] Comment on above: Order Comment: Speci men Type: ARTERIAL BLOOD SPECIMENOrdering Facility: [facility] Address: [address] [place] [address] Performed By: #### A LLBG ####[facility] LABCLIA [id number] [place] [address] [place] Calcium.ionized (Bld) [Mass/Vol] 1.12 mmol/L Normal 1.08-1.30 [facility] Comment on above: Order Comment: Speci men Type: ARTERIAL BLOOD SPECIMENOrdering Facility: [facility] Address: [address] [place] [address] Performed By: #### A LLBG ####[facility] LABIA [id number] [place] [address] [place] Calcium.ionized adjusted to pH 7.4 (BldA) [Moles/Vol] 1.18 mmol/L Normal 1.08-1.30 [facility] Comment on above: Order Comment: Speci men Type: ARTERIAL BLOOD SPECIMENOrdering Facility: [facility] Address: [address] [place] [address] Performed By: #### A LLBG ####[facility] LABIA [id number] [place] [address] [place] Carboxyhemoglobin (BldA) [Mass fraction] 0.6 % Normal 0.0-2.0 [facility] Comment on above: Order Comment: Speci men Type: ARTERIAL BLOOD SPECIMENOrdering Facility: [facility] Address: [address] [place] [address] Result Comment: Carb oxyhemoglobin Reference Range for Smokers: 2.0-8.0% Performed By: #### A LLBG ####[facility] LABIA [id number] [place] [address] [place] CO2 (Bld) [Partial pressure] 27 mm Hg Low 36-46 [facility] Comment on above: Order Comment: Speci men Type: ARTERIAL BLOOD SPECIMENOrdering Facility: [facility] Address: [address] Performed By: #### A LLBG ####[facility] LABCLIA [id number] [place] [address] [place] CO2 [Moles/Vol] 22 mmol/L Normal 22-28 [facility] Comment on above: Order Comment: Speci men Type: ARTERIAL BLOOD SPECIMENOrdering Facility: [facility] Address: [address] Performed By: #### A LLBG ####[facility] LABCLIA [id number] [place] [address] [place] Glucose [Mass/Vol] 120 mg/dL High 60-105 [facility] Comment on above: Order Comment: Speci men Type: ARTERIAL BLOOD SPECIMENOrdering Facility: [facility] Address: [address] Performed By: #### A LLBG ####[facility] LABCLIA [id number] [place] [address] [place] HCO3 (Bld) [Moles/Vol] 21 mmol/L Low 22-26 [facility] Comment on above: Order Comment: Speci men Type: ARTERIAL BLOOD SPECIMENOrdering Facility: [facility] Address: [address] Performed By: #### A LLBG ####[facility] LABCLIA [id number] [place] [address] [place] Hematocrit (Bld) [Volume fraction] 29.5 % Low 39.0-51.0 [facility] Comment on above: Order Comment: Speci men Type: ARTERIAL BLOOD SPECIMENOrdering Facility: [facility] Address: [address] Performed By: #### A LLBG ####[facility] LABCLIA [id number] [place] [address] [place] Hemoglobin (Bld) [Mass/Vol] 9.5 g/dL Low 13.0-17.0 [facility] Comment on above: Order Comment: Speci men Type: ARTERIAL BLOOD SPECIMENOrdering Facility: [facility] Address: [address] [place] [address] Performed By: #### A LLBG ####[facility] LABIA [id number] [place] [address] [place] Lactate [Moles/Vol] 1.3 mmol/L Normal 0.5-2.2 [facility] Comment on above: Order Comment: Speci men Type: ARTERIAL BLOOD SPECIMENOrdering Facility: [facility] Address: [address] [place] [address] Performed By: #### A LLBG ####[facility] LABIA [id number] [address] [place] Methemoglobin (Bld) [Mass fraction] 1.4 % Normal 0.0-1.5 [facility] Comment on above: Order Comment: Speci men Type: ARTERIAL BLOOD SPECIMENOrdering Facility: [facility] Address: [address] [place], [place] [address] Performed By: #### A LLBG ####[facility] LABIA [id number] [place] [address] [place] O2 THERAPY Ventilator Normal [facility] Comment on above: Order Comment: Speci men Type: ARTERIAL BLOOD SPECIMENOrdering Facility: [facility] Address: [address] [place], [place] [address] Performed By: #### A LLBG ####[facility] LABIA [id number] [place] [address] [place] Oxygen (Bld) [Partial pressure] 140 mm Hg High 85-95 [facility] Comment on above: Order Comment: Speci men Type: ARTERIAL BLOOD SPECIMENOrdering Facility: [facility] Address: [address] Performed By: #### A LLBG ####[facility] LABCLIA [id number] [place] [address] [place] Oxyhemoglobin (BldA) [Mass fraction] 97 % Normal 95-98 [facility] Comment on above: Order Comment: Speci men Type: ARTERIAL BLOOD SPECIMENOrdering Facility: [facility] Address: [address] [place], [place] [address] Performed By: #### A LLBG ####[facility] LABIA [id number] [place] [address] [place] pH (Bld) 7.50 [pH] High 7.35-7.45 [facility] Comment on above: Order Comment: Speci men Type: ARTERIAL BLOOD SPECIMENOrdering Facility: [facility] Address: [address] [place], [place] [address] Performed By: #### A LLBG ####[facility] LABIA [id number] [place] [address] [place] Potassium [Moles/Vol] 4.0 mmol/L Normal 3.5-5.0 [facility] Comment on above: Order Comment: Speci men Type: ARTERIAL BLOOD SPECIMENOrdering Facility: [facility] Address: [address] [place], [place] [address] Performed By: #### A LLBG ####[facility] LABIA [id number] [place] [address] [place] Sodium [Moles/Vol] 140 mmol/L Normal 136-144 [facility] Comment on above: Order Comment: Speci men Type: ARTERIAL BLOOD SPECIMENOrdering Facility: [facility] Address: [address] Performed By: #### A LLBG ####[facility] LABIA [id number] [place] [address] [place] Basic metabolic 2000 panelon 09-20-2022 Anion gap [Moles/Vol] 13 mmol/L Normal 9-18 [facility] Comment on above: Order Comment: Speci men Type: BLOOD SPECIMENOrdering Facility: [facility] Address: [address] [place] [address] Performed By: #### 2 4321-2 ####[facility] LABCLIA [id number] [place] [address] [place] Calcium [Mass/Vol] 8.3 mg/dL Low 8.5-10.2 [facility] Comment on above: Order Comment: Speci men Type: BLOOD SPECIMENOrdering Facility: [facility] Address: [address] [place] [address] Performed By: #### 2 4321-2 ####[facility] LABCLIA [id number] [place] [address] [place] Chloride [Moles/Vol] 108 mmol/L High 97-105 [facility] Comment on above: Order Comment: Speci men Type: BLOOD SPECIMENOrdering Facility: [facility] Address: [address] [place] [address] Performed By: #### 2 4321-2 ####[facility] LABCLIA [id number] [place] [address] [place] CO2 [Moles/Vol] 18 mmol/L Low 22-30 [facility] Comment on above: Order Comment: Speci men Type: BLOOD SPECIMENOrdering Facility: [facility] Address: [address] [place], [place] [address] Performed By: #### 2 4321-2 ####[facility] LABCLIA [id number] [place] [address] [place] Creatinine [Mass/Vol] 1.66 mg/dL High 0.73-1.22 [facility] Comment on above: Order Comment: Speci men Type: BLOOD SPECIMENOrdering Facility: [facility] Address: [address] [address] Performed By: #### 2 4321-2 ####[facility] LABIA [id number] [place] [address] [place] ESTIMATED GLOMERULAR FILTRATION RATE 45 mL/min/1.73m??? Low >=60 [facility] Comment on above: Order Comment: Guadalupecarter men Type: BLOOD SPECIMENOrdering Facility: [facility] Address: [address] [address] Result Comment: Ignacia mated Glomerular Filtration Rate [...] Performed By: #### 2 4321-2 ####[facility] LABCLIA [id number] [place] [address] [place] Glucose [Mass/Vol] 116 mg/dL High 74-99 [facility] Comment on above: Order Comment: Cierra cartwright Type: BLOOD SPECIMENOrdering Facility: [facility] Address: [address] [place] [address] Result Comment: The [place] [employer] (ADA) provides guidance for cutoff [...] Standards of Medical Care in Diabetes 2016, [place] [employer]. Diabetes Care. 2016.39(Suppl 1). Performed By: #### 2 4321-2 ####[facility] LABCLIA [id number] [place] [address] [place] Potassium [Moles/Vol] 4.1 mmol/L Normal 3.7-5.1 [facility] Comment on above: Order Comment: Speci men Type: BLOOD SPECIMENOrdering Facility: [facility] Address: [address] [place] [address] Performed By: #### 2 4321-2 ####[facility] LABCLIA [id number] [place] [address] [place] Sodium [Moles/Vol] 139 mmol/L Normal 136-144 [facility] Comment on above: Order Comment: Speci men Type: BLOOD SPECIMENOrdering Facility: [facility] Address: [address] [place] [address] Performed By: #### 2 4321-2 ####[facility] LABCLIA [id number] [place] [address] [place] Urea nitrogen [Mass/Vol] 27 mg/dL High 9-24 [facility] Comment on above: Order Comment: Speci men Type: BLOOD SPECIMENOrdering Facility: [facility] Address: [address] [place] [address] Performed By: #### 2 4321-2 ####[facility] LABIA [id number] [place] [address] [place] CBC panel Auto (Bld)on 09-20 Erythrocyte distribution width (RBC) [Ratio] 14.2 % Normal 11.5-15.0 [facility] Comment on above: Order Comment: Speci men Type: BLOOD SPECIMENOrdering Facility: [facility] Address: [address] [place] [address] Performed By: #### 5 8410-2 ####[facility] LABCLIA [id number] [place] [address] [place] Hematocrit (Bld) [Volume fraction] 27.6 % Low 39.0-51.0 [facility] Comment on above: Order Comment: Speci men Type: BLOOD SPECIMENOrdering Facility: [facility] Address: [address] [place] [address] Performed By: #### 5 8410-2 ####[facility] LABCLIA [id number] [place] [address] [place] Hemoglobin (Bld) [Mass/Vol] 9.1 g/dL Low 13.0-17.0 [facility] Comment on above: Order Comment: Speci men Type: BLOOD SPECIMENOrdering Facility: [facility] Address: [address] [place] [address] Performed By: #### 5 8410-2 ####[facility] LABIA [id number] [address] [place] MCH (RBC) [Entitic mass] 27.8 pg Normal 26.0-34.0 [facility] Comment on above: Order Comment: Speci men Type: BLOOD SPECIMENOrdering Facility: [facility] Address: [address] [place] [address] Performed By: #### 5 8410-2 ####[facility] LABIA [id number] [address] [place] MCHC (RBC) [Mass/Vol] 33.0 g/dL Normal 30.5-36.0 [facility] Comment on above: Order Comment: Speci men Type: BLOOD SPECIMENOrdering Facility: [facility] Address: [address] [place], [place] [address] Performed By: #### 5 8410-2 ####[facility] LABIA [id number] [address] [place] MCV (RBC) [Entitic vol] 84.4 fL Normal 80.0-100.0 C [facility] Comment on above: Order Comment: Speci men Type: BLOOD SPECIMENOrdering Facility: [facility] Address: [address] [address] Performed By: #### 5 8410-2 ####[facility] [id number] [place] [address] [place] Nucleated RBC (Bld) [#/Vol] 10*3/uL Normal <0.01 [facility] Comment on above: Order Comment: Speci men Type: BLOOD SPECIMENOrdering Facility: [facility] Address: [address] [place] [address] Performed By: #### 5 8410-2 ####[facility] [id number] [place] [address] [place] Platelet mean volume (Bld) [Entitic vol] 11.4 fL Normal 9.0-12.7 [facility] Comment on above: Order Comment: Speci men Type: BLOOD SPECIMENOrdering Facility: [facility] Address: [address] [place] [address] Performed By: #### 5 8410-2 ####[facility] [id number] [place] [address] [place] Platelets (Bld) [#/Vol] 121 10*3/uL Low 150-400 [facility] Comment on above: Order Comment: Speci men Type: BLOOD SPECIMENOrdering Facility: [facility] Address: [address] [place] [address] Result Comment: Resu lts checked and verified.No clot detected. Performed By: #### 5 8410-2 ####[facility] [id number] [place] [address] [place] RBC (Bld) [#/Vol] 3.27 10*6/uL Low 4.20-6.00 [facility] Comment on above: Order Comment: Speci men Type: BLOOD SPECIMENOrdering Facility: [facility] Address: [address] [place] [address] Performed By: #### 5 8410-2 ####[facility] LABCLIA [id number] [place] [address] [place] WBC (Bld) [#/Vol] 19.14 10*3/uL High 3.70-11.00 [facility] Comment on above: Order Comment: Speci men Type: BLOOD SPECIMENOrdering Facility: [facility] Address: [address] Performed By: #### 5 8410-2 ####[facility] LABIA [id number] [place] [address] [place] CONSULT PROGon 09-20-2022 CONSULT PROG Normal [facility] CONSULT PROG Normal [facility] CONSULT PROG Normal [facility] NUTRITIONon 09-20-2022 NUTRITION Normal [facility] ARTERIAL BLOOD GASESon 09-19 Base deficit (BldA) [Moles/Vol] -2 mmol/L Normal -2-0 [facility] Comment on above: Order Comment: Speci men Type: ARTERIAL BLOOD SPECIMENOrdering Facility: [facility] Address: [address] Performed By: #### A LLBG ####[facility] LABIA [id number] [place] [address] [place] Body temperature 98.78 [degF] Normal [facility] Comment on above: Order Comment: Speci men Type: ARTERIAL BLOOD SPECIMENOrdering Facility: [facility] Address: [address] Performed By: #### A LLBG ####[facility] LABIA [id number] [place] [address] [place] Calcium.ionized (Bld) [Mass/Vol] 1.11 mmol/L Normal 1.08-1.30 [facility] Comment on above: Order Comment: Speci men Type: ARTERIAL BLOOD SPECIMENOrdering Facility: [facility] Address: [address] [address] Performed By: #### A LLBG ####[facility] [id number] [place] [address] [place] Calcium.ionized adjusted to pH 7.4 (BldA) [Moles/Vol] 1.15 mmol/L Normal 1.08-1.30 [facility] Comment on above: Order Comment: Speci men Type: ARTERIAL BLOOD SPECIMENOrdering Facility: [facility] Address: [address] [address] Performed By: #### A LLBG ####[facility] [id number] [place] [address] [place] Carboxyhemoglobin (BldA) [Mass fraction] 1.3 % Normal 0.0-2.0 [facility] Comment on above: Order Comment: Speci men Type: ARTERIAL BLOOD SPECIMENOrdering Facility: [facility] Address: [address] [place] [address] Result Comment: Carb oxyhemoglobin Reference Range for Smokers: 2.0-8.0% Performed By: #### A LLBG ####[facility] [id number] [place] [address] [place] CO2 (Bld) [Partial pressure] 28 mm Hg Low 36-46 [facility] Comment on above: Order Comment: Speci men Type: ARTERIAL BLOOD SPECIMENOrdering Facility: [facility] Address: [address] Performed By: #### A LLBG ####[facility] [id number] [place] [address] [place] CO2 [Moles/Vol] 21 mmol/L Low 22-28 [facility] Comment on above: Order Comment: Speci men Type: ARTERIAL BLOOD SPECIMENOrdering Facility: [facility] Address: [address] Performed By: #### A LLBG ####[facility] LABCLIA [id number] [place] [address] [place] CO2 adjusted to patient's actual temperature (Bld) [Partial pressure] 28 mmHg Low 36-46 [facility] Comment on above: Order Comment: Speci men Type: ARTERIAL BLOOD SPECIMENOrdering Facility: [facility] Address: [address] [place], [place] [address] Performed By: #### A LLBG ####[facility] LABCLIA [id number] [place] [address] [place] FIO2 30 % Normal [facility] Comment on above: Order Comment: Speci men Type: ARTERIAL BLOOD SPECIMENOrdering Facility: [facility] Address: [address] [place], [place] [address] Performed By: #### A LLBG ####[facility] LABCLIA [id number] [place] [address] [place] Glucose [Mass/Vol] 154 mg/dL High 60-105 [facility] Comment on above: Order Comment: Speci men Type: ARTERIAL BLOOD SPECIMENOrdering Facility: [facility] Address: [address] [place], [place] [address] Performed By: #### A LLBG ####[facility] LABCLIA [id number] [place] [address] [place] HCO3 (Bld) [Moles/Vol] 20 mmol/L Low 22-26 [facility] Comment on above: Order Comment: Speci men Type: ARTERIAL BLOOD SPECIMENOrdering Facility: [facility] Address: [address] [place], [place] [address] Performed By: #### A LLBG ####[facility] LABCLIA [id number] [place] [address] [place] Hematocrit (Bld) [Volume fraction] 29.0 % Low 39.0-51.0 [facility] Comment on above: Order Comment: Speci men Type: ARTERIAL BLOOD SPECIMENOrdering Facility: [facility] Address: [address] Performed By: #### A LLBG ####[facility] LABCLIA [id number] [address] [place] Hemoglobin (Bld) [Mass/Vol] 9.4 g/dL Low 13.0-17.0 [facility] Comment on above: Order Comment: Speci men Type: ARTERIAL BLOOD SPECIMENOrdering Facility: [facility] Address: [address] Performed By: #### A LLBG ####[facility] LABCLIA [id number] [address] [place] Lactate [Moles/Vol] 1.7 mmol/L Normal 0.5-2.2 [facility] Comment on above: Order Comment: Speci men Type: ARTERIAL BLOOD SPECIMENOrdering Facility: [facility] Address: [address] Performed By: #### A LLBG ####[facility] LABCLIA [id number] [address] [place] Methemoglobin (Bld) [Mass fraction] 1.2 % Normal 0.0-1.5 [facility] Comment on above: Order Comment: Speci men Type: ARTERIAL BLOOD SPECIMENOrdering Facility: [facility] Address: [address] Performed By: #### A LLBG ####[facility] LABCLIA [id number] [place] [address] [place] O2 THERAPY Ventilator Normal [facility] Comment on above: Order Comment: Speci men Type: ARTERIAL BLOOD SPECIMENOrdering Facility: [facility] Address: [address] Performed By: #### A LLBG ####[facility] LABCLIA [id number] [place] [address] [place] Oxygen (Bld) [Partial pressure] 133 mm Hg High 85-95 [facility] Comment on above: Order Comment: Speci men Type: ARTERIAL BLOOD SPECIMENOrdering Facility: [facility] Address: [address] [place] [address] Performed By: #### A LLBG ####[facility] LABCLIA [id number] [place] [address] [place] Oxygen adjusted to patient's actual temperature (Bld) [Partial pressure] 133 mmHg High 85-95 [facility] Comment on above: Order Comment: Speci men Type: ARTERIAL BLOOD SPECIMENOrdering Facility: [facility] Address: [address] [place] [address] Performed By: #### A LLBG ####[facility] LABCLIA [id number] [place] [address] [place] Oxyhemoglobin (BldA) [Mass fraction] 97 % Normal 95-98 [facility] Comment on above: Order Comment: Speci men Type: ARTERIAL BLOOD SPECIMENOrdering Facility: [facility] Address: [address] [place], [place] [address] Performed By: #### A LLBG ####[facility] LABCLIA [id number] [place] [address] [place] pH (Bld) 7.47 [pH] High 7.35-7.45 [facility] Comment on above: Order Comment: Speci men Type: ARTERIAL BLOOD SPECIMENOrdering Facility: [facility] Address: [address] [place], [place] [address] Performed By: #### A LLBG ####[facility] LABCLIA [id number] [place] [address] [place] pH adjusted to patient's actual temperature (Bld) 7.47 High 7.35-7.45 [facility] Comment on above: Order Comment: Speci men Type: ARTERIAL BLOOD SPECIMENOrdering Facility: [facility] Address: [address] Performed By: #### A LLBG ####[facility] LABCLIA [id number] [place] [address] [place] Potassium [Moles/Vol] 4.3 mmol/L Normal 3.5-5.0 [facility] Comment on above: Order Comment: Speci men Type: ARTERIAL BLOOD SPECIMENOrdering Facility: [facility] Address: [address] Performed By: #### A LLBG ####[facility] LABCLIA [id number] [place] [address] [place] Sodium [Moles/Vol] 139 mmol/L Normal 136-144 [facility] Comment on above: Order Comment: Speci men Type: ARTERIAL BLOOD SPECIMENOrdering Facility: [facility] Address: [address] Performed By: #### A LLBG ####[facility] LABCLIA [id number] [place] [address] [place] Base deficit (BldA) [Moles/Vol] -4 mmol/L Low -2-0 [facility] Comment on above: Order Comment: Speci men Type: ARTERIAL BLOOD SPECIMENOrdering Facility: [facility] Address: [address] Performed By: #### A LLBG ####[facility] LABCLIA [id number] [place] [address] [place] Body temperature 102.74 [degF] Normal [facility] Comment on above: Order Comment: Speci men Type: ARTERIAL BLOOD SPECIMENOrdering Facility: [facility] Address: [address] Performed By: #### A LLBG ####[facility] LABCLIA [id number] [place] [address] [place] Calcium.ionized (Bld) [Mass/Vol] 1.09 mmol/L Normal 1.08-1.30 [facility] Comment on above: Order Comment: Speci men Type: ARTERIAL BLOOD SPECIMENOrdering Facility: [facility] Address: [address] [place] [address] Performed By: #### A LLBG ####[facility] LABCLIA [id number] [place] [address] [place] Calcium.ionized adjusted to pH 7.4 (BldA) [Moles/Vol] 1.10 mmol/L Normal 1.08-1.30 [facility] Comment on above: Order Comment: Speci men Type: ARTERIAL BLOOD SPECIMENOrdering Facility: [facility] Address: [address] [place] [address] Performed By: #### A LLBG ####[facility] LABIA [id number] [place] [address] [place] Carboxyhemoglobin (BldA) [Mass fraction] 0.6 % Normal 0.0-2.0 [facility] Comment on above: Order Comment: Speci men Type: ARTERIAL BLOOD SPECIMENOrdering Facility: [facility] Address: [address] [place] [address] Result Comment: Carb oxyhemoglobin Reference Range for Smokers: 2.0-8.0% Performed By: #### A LLBG ####[facility] LABCLIA [id number] [place] [address] [place] CO2 (Bld) [Partial pressure] 31 mm Hg Low 36-46 [facility] Comment on above: Order Comment: Speci men Type: ARTERIAL BLOOD SPECIMENOrdering Facility: [facility] Address: [address] [place] [address] Performed By: #### A LLBG ####[facility] LABCLIA [id number] [place] [address] [place] CO2 [Moles/Vol] 21 mmol/L Low 22-28 [facility] Comment on above: Order Comment: Speci men Type: ARTERIAL BLOOD SPECIMENOrdering Facility: [facility] Address: [address] [address] Performed By: #### A LLBG ####[facility] LABCLIA [id number] [place] [address] [place] CO2 adjusted to patient's actual temperature (Bld) [Partial pressure] 34 mmHg Low 36-46 [facility] Comment on above: Order Comment: Speci men Type: ARTERIAL BLOOD SPECIMENOrdering Facility: [facility] Address: [address] [place] [address] Performed By: #### A LLBG ####[facility] LABCLIA [id number] [place] [address] [place] FIO2 30 % Normal [facility] Comment on above: Order Comment: Speci men Type: ARTERIAL BLOOD SPECIMENOrdering Facility: [facility] Address: [address] Performed By: #### A LLBG ####[facility] LABCLIA [id number] [place] [address] [place] Glucose [Mass/Vol] 128 mg/dL High 60-105 [facility] Comment on above: Order Comment: Speci men Type: ARTERIAL BLOOD SPECIMENOrdering Facility: [facility] Address: [address] Performed By: #### A LLBG ####[facility] LABCLIA [id number] [place] [address] [place] HCO3 (Bld) [Moles/Vol] 20 mmol/L Low 22-26 [facility] Comment on above: Order Comment: Speci men Type: ARTERIAL BLOOD SPECIMENOrdering Facility: [facility] Address: [address] Performed By: #### A LLBG ####[facility] LABCLIA [id number] [address] [place] Hematocrit (Bld) [Volume fraction] 30.6 % Low 39.0-51.0 [facility] Comment on above: Order Comment: Speci men Type: ARTERIAL BLOOD SPECIMENOrdering Facility: [facility] Address: [address] Performed By: #### A LLBG ####[facility] LABIA [id number] [place] [address] [place] Hemoglobin (Bld) [Mass/Vol] 9.9 g/dL Low 13.0-17.0 [facility] Comment on above: Order Comment: Speci men Type: ARTERIAL BLOOD SPECIMENOrdering Facility: [facility] Address: [address] Performed By: #### A LLBG ####[facility] LABIA [id number] [place] [address] [place] Lactate [Moles/Vol] 2.8 mmol/L High 0.5-2.2 [facility] Comment on above: Order Comment: Speci men Type: ARTERIAL BLOOD SPECIMENOrdering Facility: [facility] Address: [address] Performed By: #### A LLBG ####[facility] LABIA [id number] [place] [address] [place] Methemoglobin (Bld) [Mass fraction] 1.3 % Normal 0.0-1.5 [facility] Comment on above: Order Comment: Speci men Type: ARTERIAL BLOOD SPECIMENOrdering Facility: [facility] Address: [address] Performed By: #### A LLBG ####[facility] LABIA [id number] [address] [place] MINUTE VENTILATION 9 L/min Normal [facility] Comment on above: Order Comment: Speci men Type: ARTERIAL BLOOD SPECIMENOrdering Facility: [facility] Address: [address] Performed By: #### A LLBG ####[facility] LABCLIA [id number] [address] OF [facility] O2 THERAPY Ventilator Normal [facility] Comment on above: Order Comment: Speci men Type: ARTERIAL BLOOD SPECIMENOrdering Facility: [facility] Address: [address] Performed By: #### A LLBG ####[facility] LABCLIA [id number] [address] [place] Oxygen (Bld) [Partial pressure] 131 mm Hg High 85-95 [facility] Comment on above: Order Comment: Speci men Type: ARTERIAL BLOOD SPECIMENOrdering Facility: [facility] Address: [address] [place] [address] Performed By: #### A LLBG ####[facility] LABCLIA [id number] [address] Oxygen adjusted to patient's actual temperature (Bld) [Partial pressure] 144 mmHg High 85-95 [facility] Comment on above: Order Comment: Speci men Type: ARTERIAL BLOOD SPECIMENOrdering Facility: [facility] Address: [address] [place] [address] Performed By: #### A LLBG ####[facility] LABCLIA [id number] [place] [address] [place] Oxyhemoglobin (BldA) [Mass fraction] 97 % Normal 95-98 [facility] Comment on above: Order Comment: Speci men Type: ARTERIAL BLOOD SPECIMENOrdering Facility: [facility] Address: [address] [place] [address] Performed By: #### A LLBG ####[facility] LABCLIA [id number] [place] [address] [place] PEEP/CPAP 5 cmH2O Normal [facility] Comment on above: Order Comment: Speci men Type: ARTERIAL BLOOD SPECIMENOrdering Facility: [facility] Address: [address] [place] [address] Performed By: #### A LLBG ####[facility] LABCLIA [id number] [place] [address] [place] pH (Bld) 7.42 [pH] Normal 7.35-7.45 [facility] Comment on above: Order Comment: Speci men Type: ARTERIAL BLOOD SPECIMENOrdering Facility: [facility] Address: [address] [place] [address] Performed By: #### A LLBG ####[facility] LABCLIA [id number] [place] [address] [place] pH adjusted to patient's actual temperature (Bld) 7.39 Normal 7.35-7.45 [facility] Comment on above: Order Comment: Speci men Type: ARTERIAL BLOOD SPECIMENOrdering Facility: [facility] Address: [address] [place] [address] Performed By: #### A LLBG ####[facility] LABCLIA [id number] [place] [address] [place] Potassium [Moles/Vol] 4.1 mmol/L Normal 3.5-5.0 [facility] Comment on above: Order Comment: Speci men Type: ARTERIAL BLOOD SPECIMENOrdering Facility: [facility] Address: [address] [place], [place] [address] Performed By: #### A LLBG ####[facility] LABCLIA [id number] [place] [address] [place] Sodium [Moles/Vol] 141 mmol/L Normal 136-144 [facility] Comment on above: Order Comment: Speci men Type: ARTERIAL BLOOD SPECIMENOrdering Facility: [facility] Address: [address] [address] Performed By: #### A LLBG ####[facility] LABCLIA [id number] [address] [place] Base deficit (BldA) [Moles/Vol] -4 mmol/L Low -2-0 [facility] Comment on above: Order Comment: Speci men Type: ARTERIAL BLOOD SPECIMENOrdering Facility: [facility] Address: [address] [place] [address] Performed By: #### A LLBG ####[facility] LABIA [id number] [address] [place] Body temperature 98.6 [degF] Normal [facility] Comment on above: Order Comment: Speci men Type: ARTERIAL BLOOD SPECIMENOrdering Facility: [facility] Address: [address] [place] [address] Performed By: #### A LLBG ####[facility] LABIA [id number] [address] [place] Calcium.ionized (Bld) [Mass/Vol] 1.12 mmol/L Normal 1.08-1.30 [facility] Comment on above: Order Comment: Speci men Type: ARTERIAL BLOOD SPECIMENOrdering Facility: [facility] Address: [address] [place], [place] [address] Performed By: #### A LLBG ####[facility] LABIA [id number] [address] [place] Calcium.ionized adjusted to pH 7.4 (BldA) [Moles/Vol] 1.14 mmol/L Normal 1.08-1.30 [facility] Comment on above: Order Comment: Speci men Type: ARTERIAL BLOOD SPECIMENOrdering Facility: [facility] Address: [address] [place], [place] [address] Performed By: #### A LLBG ####[facility] LABCLIA [id number] [place] [address] [place] Carboxyhemoglobin (BldA) [Mass fraction] 0.8 % Normal 0.0-2.0 [facility] Comment on above: Order Comment: Speci men Type: ARTERIAL BLOOD SPECIMENOrdering Facility: [facility] Address: [address] [place], [place] [address] Result Comment: Carb oxyhemoglobin Reference Range for Smokers: 2.0-8.0% Performed By: #### A LLBG ####[facility] LABCLIA [id number] [place] [address] [place] CO2 (Bld) [Partial pressure] 27 mm Hg Low 36-46 [facility] Comment on above: Order Comment: Speci men Type: ARTERIAL BLOOD SPECIMENOrdering Facility: [facility] Address: [address] [place], [place] [address] Performed By: #### A LLBG ####[facility] LABCLIA [id number] [place] [address] [place] CO2 [Moles/Vol] 19 mmol/L Low 22-28 [facility] Comment on above: Order Comment: Speci men Type: ARTERIAL BLOOD SPECIMENOrdering Facility: [facility] Address: [address] Performed By: #### A LLBG ####[facility] LABCLIA [id number] [place] [address] [place] Glucose [Mass/Vol] 97 mg/dL Normal 60-105 [facility] Comment on above: Order Comment: Speci men Type: ARTERIAL BLOOD SPECIMENOrdering Facility: [facility] Address: [address] [place], [place] [address] Performed By: #### A LLBG ####[facility] LABCLIA [id number] [address] [id number] [address] [place] HCO3 (Bld) [Moles/Vol] 18 mmol/L Low 22-26 [facility] Comment on above: Order Comment: Speci men Type: ARTERIAL BLOOD SPECIMENOrdering Facility: [facility] Address: [address] [place] [address] Performed By: #### A LLBG ####[facility] LABCLIA [id number] [place] [address] [place] Hematocrit (Bld) [Volume fraction] 31.8 % Low 39.0-51.0 [facility] Comment on above: Order Comment: Speci men Type: ARTERIAL BLOOD SPECIMENOrdering Facility: [facility] Address: [address] [place] [address] Performed By: #### A LLBG ####[facility] LABCLIA [id number] [place] [address] [place] Hemoglobin (Bld) [Mass/Vol] 10.3 g/dL Low 13.0-17.0 [facility] Comment on above: Order Comment: Speci men Type: ARTERIAL BLOOD SPECIMENOrdering Facility: [facility] Address: [address] [place], [place] [address] Performed By: #### A LLBG ####[facility] LABIA [id number] [place] [address] [place] Lactate [Moles/Vol] 3.8 mmol/L High 0.5-2.2 [facility] Comment on above: Order Comment: Speci men Type: ARTERIAL BLOOD SPECIMENOrdering Facility: [facility] Address: [address] Performed By: #### A LLBG ####[facility] LABIA [id number] [place] [address] [place] LITERS 2 Liters/min Normal [facility] Comment on above: Order Comment: Speci men Type: ARTERIAL BLOOD SPECIMENOrdering Facility: [facility] Address: [address] [place], [place] [address] Performed By: #### A LLBG ####[facility] LABCLIA [id number] [address] [place] Methemoglobin (Bld) [Mass fraction] 1.1 % Normal 0.0-1.5 [facility] Comment on above: Order Comment: Speci men Type: ARTERIAL BLOOD SPECIMENOrdering Facility: [facility] Address: [address] Performed By: #### A LLBG ####[facility] LABIA [id number] [address] [place] O2 THERAPY NC = Nasal Cannula Normal [facility] Comment on above: Order Comment: Speci men Type: ARTERIAL BLOOD SPECIMENOrdering Facility: [facility] Address: [address] Performed By: #### A LLBG ####[facility] LABIA [id number] [place] [address] [place] Oxygen (Bld) [Partial pressure] 144 mm Hg High 85-95 [facility] Comment on above: Order Comment: Speci men Type: ARTERIAL BLOOD SPECIMENOrdering Facility: [facility] Address: [address] Performed By: #### A LLBG ####[facility] LABIA [id number] [address] [place] Oxyhemoglobin (BldA) [Mass fraction] 97 % Normal 95-98 [facility] Comment on above: Order Comment: Speci men Type: ARTERIAL BLOOD SPECIMENOrdering Facility: [facility] Address: [address] [place] [address] Performed By: #### A LLBG ####[facility] LABIA [id number] [place] [address] [place] pH (Bld) 7.44 [pH] Normal 7.35-7.45 [facility] Comment on above: Order Comment: Speci men Type: ARTERIAL BLOOD SPECIMENOrdering Facility: [facility] Address: [address] Performed By: #### A LLBG ####[facility] LABCLIA [id number] [place] [address] [place] Potassium [Moles/Vol] 3.7 mmol/L Normal 3.5-5.0 [facility] Comment on above: Order Comment: Speci men Type: ARTERIAL BLOOD SPECIMENOrdering Facility: [facility] Address: [address] Performed By: #### A LLBG ####[facility] LABCLIA [id number] [place] [address] [place] Sodium [Moles/Vol] 141 mmol/L Normal 136-144 [facility] Comment on above: Order Comment: Speci men Type: ARTERIAL BLOOD SPECIMENOrdering Facility: [facility] Address: [address] Performed By: #### A LLBG ####[facility] LABCLIA [id number] [place] [address] [place] Base deficit (BldA) [Moles/Vol] -4 mmol/L Low -2-0 [facility] Comment on above: Order Comment: Speci men Type: ARTERIAL BLOOD SPECIMENOrdering Facility: [facility] Address: [address] Performed By: #### A LLBG ####[facility] LABCLIA [id number] [place] [address] [place] Body temperature 98.6 [degF] Normal [facility] Comment on above: Order Comment: Speci men Type: ARTERIAL BLOOD SPECIMENOrdering Facility: [facility] Address: [address] Performed By: #### A LLBG ####[facility] LABCLIA [id number] [place] [address] [place] Calcium.ionized (Bld) [Mass/Vol] 1.06 mmol/L Low 1.08-1.30 [facility] Comment on above: Order Comment: Speci men Type: ARTERIAL BLOOD SPECIMENOrdering Facility: [facility] Address: [address] [place] [address] Performed By: #### A LLBG ####[facility] LABCLIA [id number] [place] [address] [place] Calcium.ionized adjusted to pH 7.4 (BldA) [Moles/Vol] 1.10 mmol/L Normal 1.08-1.30 [facility] Comment on above: Order Comment: Speci men Type: ARTERIAL BLOOD SPECIMENOrdering Facility: [facility] Address: [address] [place], [place] [address] Performed By: #### A LLBG ####[facility] LABCLIA [id number] [place] [address] [place] Carboxyhemoglobin (BldA) [Mass fraction] 1.2 % Normal 0.0-2.0 [facility] Comment on above: Order Comment: Speci men Type: ARTERIAL BLOOD SPECIMENOrdering Facility: [facility] Address: [address] [place] [address] Result Comment: Carb oxyhemoglobin Reference Range for Smokers: 2.0-8.0% Performed By: #### A LLBG ####[facility] LABCLIA [id number] [place] [address] [place] CO2 (Bld) [Partial pressure] 25 mm Hg Low 36-46 [facility] Comment on above: Order Comment: Speci men Type: ARTERIAL BLOOD SPECIMENOrdering Facility: [facility] Address: [address] [place] [address] Performed By: #### A LLBG ####[facility] LABCLIA [id number] [place] [address] [place] CO2 [Moles/Vol] 19 mmol/L Low 22-28 [facility] Comment on above: Order Comment: Speci men Type: ARTERIAL BLOOD SPECIMENOrdering Facility: [facility] Address: [address] [place] [address] Performed By: #### A LLBG ####[facility] LABCLIA [id number] [place] [address] [place] Glucose [Mass/Vol] 96 mg/dL Normal 60-105 [facility] Comment on above: Order Comment: Speci men Type: ARTERIAL BLOOD SPECIMENOrdering Facility: [facility] Address: [address] [place] [address] Performed By: #### A LLBG ####[facility] LABCLIA [id number] [place] [address] [place] HCO3 (Bld) [Moles/Vol] 18 mmol/L Low 22-26 [facility] Comment on above: Order Comment: Speci men Type: ARTERIAL BLOOD SPECIMENOrdering Facility: [facility] Address: [address] [place] [address] Performed By: #### A LLBG ####[facility] LABCLIA [id number] [place] [address] [place] Hematocrit (Bld) [Volume fraction] 35.0 % Low 39.0-51.0 [facility] Comment on above: Order Comment: Speci men Type: ARTERIAL BLOOD SPECIMENOrdering Facility: [facility] Address: [address] [place] [address] Performed By: #### A LLBG ####[facility] LABCLIA [id number] [place] [address] [place] Hemoglobin (Bld) [Mass/Vol] 11.4 g/dL Low 13.0-17.0 [facility] Comment on above: Order Comment: Speci men Type: ARTERIAL BLOOD SPECIMENOrdering Facility: [facility] Address: [address] Performed By: #### A LLBG ####[facility] LABCLIA [id number] [place] [address] [place] Lactate [Moles/Vol] 6.2 mmol/L High 0.5-2.2 [facility] Comment on above: Order Comment: Speci men Type: ARTERIAL BLOOD SPECIMENOrdering Facility: [facility] Address: [address] Performed By: #### A LLBG ####[facility] LABIA [id number] [place] [address] [place] LITERS 4 Liters/min Normal [facility] Comment on above: Order Comment: Speci men Type: ARTERIAL BLOOD SPECIMENOrdering Facility: [facility] Address: [address] Performed By: #### A LLBG ####[facility] LABIA [id number] [place] [address] [place] Methemoglobin (Bld) [Mass fraction] 1.4 % Normal 0.0-1.5 [facility] Comment on above: Order Comment: Speci men Type: ARTERIAL BLOOD SPECIMENOrdering Facility: [facility] Address: [address] Performed By: #### A LLBG ####[facility] LABCLIA [id number] [place] [address] [place] O2 THERAPY NC = Nasal Cannula Normal [facility] Comment on above: Order Comment: Speci men Type: ARTERIAL BLOOD SPECIMENOrdering Facility: [facility] Address: [address] Performed By: #### A LLBG ####[facility] LABCLIA [id number] [address] [id number] [address] [place] Oxygen (Bld) [Partial pressure] 76 mm Hg Low 85-95 [facility] Comment on above: Order Comment: Speci men Type: ARTERIAL BLOOD SPECIMENOrdering Facility: [facility] Address: [address] [address] Performed By: #### A LLBG ####[facility] LABCLIA [id number] [place] [address] [place] Oxyhemoglobin (BldA) [Mass fraction] 94 % Low 95-98 [facility] Comment on above: Order Comment: Speci men Type: ARTERIAL BLOOD SPECIMENOrdering Facility: [facility] Address: [address] [place], [place] [address] Performed By: #### A LLBG ####[facility] LABCLIA [id number] [place] [address] [place] pH (Bld) 7.47 [pH] High 7.35-7.45 [facility] Comment on above: Order Comment: Speci men Type: ARTERIAL BLOOD SPECIMENOrdering Facility: [facility] Address: [address] [place], [place] [address] Performed By: #### A LLBG ####[facility] LABCLIA [id number] [place] [address] [place] Potassium [Moles/Vol] 3.9 mmol/L Normal 3.5-5.0 [facility] Comment on above: Order Comment: Speci men Type: ARTERIAL BLOOD SPECIMENOrdering Facility: [facility] Address: [address] Performed By: #### A LLBG ####[facility] LABCLIA [id number] [place] [address] [place] Sodium [Moles/Vol] 142 mmol/L Normal 136-144 [facility] Comment on above: Order Comment: Speci men Type: ARTERIAL BLOOD SPECIMENOrdering Facility: [facility] Address: [address] [place], [place] Performed By: #### A LLBG ####[facility] LABCLIA [id number] [place] [address] [place] BRIEF OP NOTon 09-19-2022 BRIEF OP NOT Normal [facility] Bacteria Bld Culton 09-20-19 23 Bacteria identified Cx Nom (Bld) CULTURE, BLOOD: No growth 5 days Normal [facility] Comment on above: Performed By: #### 6 00-7 ####[facility] LABCLIA [id number] [place] [address] [place] Bacteria Ur Culton 3 Bacteria identified Cx Nom (U) Abnormal [facility] Comment on above: Performed By: #### 6 30-4 ####[facility] LABCLIA [id number] [place] [address] [place] CBC panel Auto (Bld)on 09-19 Erythrocyte distribution width (RBC) [Ratio] 14.5 % Normal 11.5-15.0 [facility] Comment on above: Order Comment: Speci men Type: BLOOD SPECIMENOrdering Facility: [facility] Address: [address] Performed By: #### 5 8410-2 ####[facility] LABCLIA [id number] [place] [address] [place] Hematocrit (Bld) [Volume fraction] 36.1 % Low 39.0-51.0 [facility] Comment on above: Order Comment: Speci men Type: BLOOD SPECIMENOrdering Facility: [facility] Address: [address] [place] [address] Performed By: #### 5 8410-2 ####[facility] LABCLIA [id number] [place] [address] [place] Hemoglobin (Bld) [Mass/Vol] 11.3 g/dL Low 13.0-17.0 [facility] Comment on above: Order Comment: Speci men Type: BLOOD SPECIMENOrdering Facility: [facility] Address: [address] Performed By: #### 5 8410-2 ####[facility] LABIA [id number] [address] [place] MCH (RBC) [Entitic mass] 27.8 pg Normal 26.0-34.0 [facility] Comment on above: Order Comment: Speci men Type: BLOOD SPECIMENOrdering Facility: [facility] Address: [address] Performed By: #### 5 8410-2 ####[facility] LABIA [id number] [address] [place] MCHC (RBC) [Mass/Vol] 31.3 g/dL Normal 30.5-36.0 [facility] Comment on above: Order Comment: Speci men Type: BLOOD SPECIMENOrdering Facility: [facility] Address: [address] [place], [place] [address] Performed By: #### 5 8410-2 ####[facility] [id number] [address] [place] MCV (RBC) [Entitic vol] 88.9 fL Normal 80.0-100.0 C [facility] Comment on above: Order Comment: Speci men Type: BLOOD SPECIMENOrdering Facility: [facility] Address: [address] Performed By: #### 5 8410-2 ####[facility] LABIA [id number] [address] [place] Nucleated RBC (Bld) [#/Vol] 10*3/uL Normal <0.01 [facility] Comment on above: Order Comment: Speci men Type: BLOOD SPECIMENOrdering Facility: [facility] Address: [address] [place], [place] [address] Performed By: #### 5 8410-2 ####[facility] LABCLIA [id number] [place] [address] [place] Platelet mean volume (Bld) [Entitic vol] 10.0 fL Normal 9.0-12.7 [facility] Comment on above: Order Comment: Speci men Type: BLOOD SPECIMENOrdering Facility: [facility] Address: [address] [place] [address] Performed By: #### 5 8410-2 ####[facility] LABIA [id number] [place] [address] [place] Platelets (Bld) [#/Vol] 164 10*3/uL Normal 150-400 [facility] Comment on above: Order Comment: Speci men Type: BLOOD SPECIMENOrdering Facility: [facility] Address: [address] [place], [place] [address] Performed By: #### 5 8410-2 ####[facility] LABIA [id number] [place] [address] [place] RBC (Bld) [#/Vol] 4.06 10*6/uL Low 4.20-6.00 [facility] Comment on above: Order Comment: Speci men Type: BLOOD SPECIMENOrdering Facility: [facility] Address: [address] [place] [address] Performed By: #### 5 8410-2 ####[facility] LABCLIA [id number] [place] [address] [place] WBC (Bld) [#/Vol] 5.21 10*3/uL Normal 3.70-11.00 [facility] Comment on above: Order Comment: Speci men Type: BLOOD SPECIMENOrdering Facility: [facility] Address: [address] [place], [place] [address] Performed By: #### 5 8410-2 ####[facility] LABCLIA [id number] [place] [id number] [place] CK SerPl-cCncon 09-19-2022 CK [Catalytic activity/Vol] 1838 U/L High 51-298 [facility] Comment on above: Order Comment: Speci men Type: BLOOD SPECIMENOrdering Facility: [facility] Address: [address] [address] Performed By: #### 2 4323-8, 2777-1, 2156-08, ####[facility] LABCLIA [id number] [place] [id number] [place] CONSULTon 09-19-2022 CONSULT Normal [facility] CONSULT Normal [facility] Comprehensive metabolic 2000 panelon 09-19-2022 Albumin [Mass/Vol] 3.4 g/dL Low 3.9-4.9 [facility] Comment on above: Order Comment: Speci men Type: BLOOD SPECIMENOrdering Facility: [facility] Address: [address] [place], [place] [address] Performed By: #### 2 4323-8, 2777-1, 2156-08, ####[facility] LABIA [id number] [place] [address] [place] ALP [Catalytic activity/Vol] 90 U/L Normal 38-113 [facility] Comment on above: Order Comment: Speci men Type: BLOOD SPECIMENOrdering Facility: [facility] Address: [address] Performed By: #### 2 4323-8, 2777-1, 2156-08, ####[facility] LABIA [id number] [place] [address] [place] ALT [Catalytic activity/Vol] 11 U/L Normal 10-54 [facility] Comment on above: Order Comment: Speci men Type: BLOOD SPECIMENOrdering Facility: [facility] Address: [address] [place] [address] Performed By: #### 2 4323-8, 2777-1, 6, ####[facility] LABCLIA [id number] [place] [address] [place] Anion gap [Moles/Vol] 21 mmol/L High 9-18 [facility] Comment on above: Order Comment: Speci men Type: BLOOD SPECIMENOrdering Facility: [facility] Address: [address] [place] [address] Performed By: #### 2 4323-8, 2777-1, 2156-08, ####[facility] LABCLIA [id number] [place] [address] [place] AST [Catalytic activity/Vol] 29 U/L Normal 14-40 [facility] Comment on above: Order Comment: Speci men Type: BLOOD SPECIMENOrdering Facility: [facility] Address: [address] [place] [address] Performed By: #### 2 4323-8, 2777-1, 2156-08, ####[facility] LABCLIA [id number] [place] [address] [place] Bilirubin [Mass/Vol] 0.6 mg/dL Normal 0.2-1.3 [facility] Comment on above: Order Comment: Speci men Type: BLOOD SPECIMENOrdering Facility: [facility] Address: [address] [place] [address] Performed By: #### 2 4323-8, 2777-1, 2156-08, ####[facility] LABCLIA [id number] [place] [address] [place] Calcium [Mass/Vol] 8.5 mg/dL Normal 8.5-10.2 [facility] Comment on above: Order Comment: Speci men Type: BLOOD SPECIMENOrdering Facility: [facility] Address: [address] [place], [place] [address] Performed By: #### 2 4323-8, 2777-1, 2156-08, ####[facility] LABCLIA [id number] [place] [address] [place] Chloride [Moles/Vol] 105 mmol/L Normal 97-105 [facility] Comment on above: Order Comment: Speci men Type: BLOOD SPECIMENOrdering Facility: [facility] Address: [address] [place], [place] [address] Performed By: #### 2 4323-8, 2777-1, 2156-08, ####[facility] LABCLIA [id number] [place] [address] [place] CO2 [Moles/Vol] 14 mmol/L Low 22-30 [facility] Comment on above: Order Comment: Speci men Type: BLOOD SPECIMENOrdering Facility: [facility] Address: [address] [place], [place] [address] Performed By: #### 2 4323-8, 2777-1, 2156-08, ####[facility] LABCLIA [id number] [place] [address] [place] Creatinine [Mass/Vol] 2.45 mg/dL High 0.73-1.22 [facility] Comment on above: Order Comment: Speci men Type: BLOOD SPECIMENOrdering Facility: [facility] Address: [address] [place], [place] [address] Performed By: #### 2 4323-8, 2777-1, 2156-08, ####[facility] LABCLIA [id number] [address] [address] [place] ESTIMATED GLOMERULAR FILTRATION RATE 28 mL/min/1.73m??? Low >=60 [facility] Comment on above: Order Comment: Speci men Type: BLOOD SPECIMENOrdering Facility: [facility] Address: [facility] [place] [address] Result Comment: Ignacia mated Glomerular Filtration Rate [...] Performed By: #### 2 4323-8, 2777-1, 2156-08, ####[facility] LABCLIA [id number] [place] [id number] [place] Glucose [Mass/Vol] 86 mg/dL Normal 74-99 [facility] Comment on above: Order Comment: Cierra cartwright Type: BLOOD SPECIMENOrdering Facility: [facility] Address: [address] [id number] Result Comment: The [place] [employer] (ADA) provides guidance for cutoff [...] Standards of Medical Care in Diabetes 2016, [place] [employer]. Diabetes Care. 2016.39(Suppl 1). Performed By: #### 2 4323-8, 2777-1, 2156-08, ####[facility] LABIA [id number] [address] [place] [id number] [place] Potassium [Moles/Vol] 4.7 mmol/L Normal 3.7-5.1 [facility] Comment on above: Order Comment: Cierra men Type: BLOOD SPECIMENOrdering Facility: [facility] Address: [address] [place] [address] Performed By: #### 2 4323-8, 2777-1, 2156-08, ####[facility] LABIA [id number] [place] [id number] [place] Protein [Mass/Vol] 6.7 g/dL Normal 6.3-8.0 [facility] Comment on above: Order Comment: Speci men Type: BLOOD SPECIMENOrdering Facility: [facility] Address: [address] Performed By: #### 2 4323-8, 2777-1, 2156-08, ####[facility] LABIA [id number] [place] [address] [place] Sodium [Moles/Vol] 140 mmol/L Normal 136-144 [facility] Comment on above: Order Comment: Speci men Type: BLOOD SPECIMENOrdering Facility: [facility] Address: [address] Performed By: #### 2 4323-8, 2777-1, 2156-08, ####[facility] LABIA [id number] [place] [address] [place] Urea nitrogen [Mass/Vol] 28 mg/dL High 9-24 [facility] Comment on above: Order Comment: Speci men Type: BLOOD SPECIMENOrdering Facility: [facility] Address: [address] [phone] Performed By: #### 2 4323-8, 2777-1, 2156-08, ####[facility] LABIA [id number] [place] [id number] [place] ECG COMPLETEon 09-19-2022 ECG COMPLETE Normal [facility] Gas and Carbon monoxide pane l (BldV)on 09-19-2022 BASE DEFICIT, VENOUS -12 mmol/L Low -2-0 [facility] Comment on above: Order Comment: Speci men Type: VENOUS BLOOD SPECIMENOrdering Facility: [facility] Address: [address] [address] Performed By: #### 2 4344-4 ####[facility] LABIA [id number] [place] [address] [place] Body temperature 98.6 [degF] Normal [facility] Comment on above: Order Comment: Speci men Type: VENOUS BLOOD SPECIMENOrdering Facility: [facility] Address: [address] [address] Performed By: #### 2 4344-4 ####[facility] [id number] [place] [address] [place] Calcium.ionized (Bld) [Mass/Vol] 1.20 mmol/L Normal 1.08-1.30 [facility] Comment on above: Order Comment: Speci men Type: VENOUS BLOOD SPECIMENOrdering Facility: [facility] Address: [address] [place] [address] Performed By: #### 2 4344-4 ####[facility] [id number] [place] [address] [place] Calcium.ionized adjusted to pH 7.4 (BldA) [Moles/Vol] Normal [facility] Comment on above: Order Comment: Speci men Type: VENOUS BLOOD SPECIMENOrdering Facility: [facility] Address: [address] [place] [address] Result Comment: Aletha ured pH is <7.20. Unable to report normalized Calcium. Performed By: #### 2 4344-4 ####[facility] [id number] [place] [address] [place] Carboxyhemoglobin (BldV) [Mass fraction] 1.0 % Normal 0.0-2.0 [facility] Comment on above: Order Comment: Speci men Type: VENOUS BLOOD SPECIMENOrdering Facility: [facility] Address: [address] [address] Result Comment: Carb oxyhemoglobin Reference Range for Smokers: 2.0-8.0% Performed By: #### 2 4344-4 ####[facility] LABCLIA [id number] [address] [place] CO2 (BldV) [Partial pressure] 48 mm[Hg] Normal 42-55 [facility] Comment on above: Order Comment: Speci men Type: VENOUS BLOOD SPECIMENOrdering Facility: [facility] Address: [address] [address] Performed By: #### 2 4344-4 ####[facility] LABCLIA [id number] [address] CO2 [Moles/Vol] 18 mmol/L Low 25-29 [facility] Comment on above: Order Comment: Speci men Type: VENOUS BLOOD SPECIMENOrdering Facility: [facility] Address: [address] [address] Performed By: #### 2 4344-4 ####[facility] LABCLIA [id number] [address] [place] COMMENTS Critical Value: pH, pHTC Urgent Value: LACT Normal [facility] Comment on above: Order Comment: Speci men Type: VENOUS BLOOD SPECIMENOrdering Facility: [facility] Address: [address] Performed By: #### 2 4344-4 ####[facility] LABCLIA [id number] [address] OF [facility] DATE/TIME NOTIFIED [id number] AM Normal [facility] Comment on above: Order Comment: Speci men Type: VENOUS BLOOD SPECIMENOrdering Facility: [facility] Address: [address] [address] Performed By: #### 2 4344-4 ####[facility] LABCLIA [id number] [place] [address] [place] Glucose [Mass/Vol] 108 mg/dL High 60-105 [facility] Comment on above: Order Comment: Speci men Type: VENOUS BLOOD SPECIMENOrdering Facility: [facility] Address: [address] [place] [address] Performed By: #### 2 4344-4 ####[facility] LABCLIA [id number] [place] [address] [place] HCO3 (Bld) [Moles/Vol] 16 mmol/L Low 24-28 [facility] Comment on above: Order Comment: Speci men Type: VENOUS BLOOD SPECIMENOrdering Facility: [facility] Address: [address] [place] [address] Performed By: #### 2 4344-4 ####[facility] LABIA [id number] [place] [address] [place] Hematocrit (Bld) [Volume fraction] 36.9 % Low 39.0-51.0 [facility] Comment on above: Order Comment: Speci men Type: VENOUS BLOOD SPECIMENOrdering Facility: [facility] Address: [address] [place] [address] Performed By: #### 2 4344-4 ####[facility] LABCLIA [id number] [place] [address] [place] Hemoglobin (Bld) [Mass/Vol] 12.0 g/dL Low 13.0-17.0 [facility] Comment on above: Order Comment: Speci men Type: VENOUS BLOOD SPECIMENOrdering Facility: [facility] Address: [address] [place], [place] [address] Performed By: #### 2 4344-4 ####[facility] LABCLIA [id number] [place] [address] [place] Lactate [Moles/Vol] 11.2 mmol/L High 0.5-2.2 [facility] Comment on above: Order Comment: Speci men Type: VENOUS BLOOD SPECIMENOrdering Facility: [facility] Address: [address] Performed By: #### 2 4344-4 ####[facility] LABCLIA [id number] [place] [address] [place] Methemoglobin (Bld) [Mass fraction] 0.9 % Normal 0.0-1.5 [facility] Comment on above: Order Comment: Speci men Type: VENOUS BLOOD SPECIMENOrdering Facility: [facility] Address: [address] Performed By: #### 2 4344-4 ####[facility] LABCLIA [id number] [address] [place] NOTIFIED WHOM Rosy Curtis RN G62, Analia Lizama Normal [facility] Comment on above: Order Comment: Speci men Type: VENOUS BLOOD SPECIMENOrdering Facility: [facility] Address: [address] Performed By: #### 2 4344-4 ####[facility] LABIA [id number] [place] [address] [place] O2 THERAPY RA=Room Air Normal [facility] Comment on above: Order Comment: Speci men Type: VENOUS BLOOD SPECIMENOrdering Facility: [facility] Address: [address] Performed By: #### 2 4344-4 ####[facility] LABCLIA [id number] [place] [address] [place] Oxygen (BldV) [Partial pressure] 40 mm[Hg] Normal 35-45 [facility] Comment on above: Order Comment: Speci men Type: VENOUS BLOOD SPECIMENOrdering Facility: [facility] Address: [address] Performed By: #### 2 4344-4 ####[facility] LABCLIA [id number] [place] [address] [place] Oxygen saturation in Venous blood 56 % Low 60-85 [facility] Comment on above: Order Comment: Speci men Type: VENOUS BLOOD SPECIMENOrdering Facility: [facility] Address: [address] [place], [place] [address] Performed By: #### 2 4344-4 ####[facility] LABCLIA [id number] [place] [address] [place] Oxyhemoglobin (BldV) [Mass fraction] 55 % Low 60-85 [facility] Comment on above: Order Comment: Speci men Type: VENOUS BLOOD SPECIMENOrdering Facility: [facility] Address: [address] [place] [address] Performed By: #### 2 4344-4 ####[facility] LABCLIA [id number] [place] [address] [place] pH (BldV) 7.16 [pH] Critically low 7.32-7.42 [facility] Comment on above: Order Comment: Speci men Type: VENOUS BLOOD SPECIMENOrdering Facility: [facility] Address: [address] [place] [address] Performed By: #### 2 4344-4 ####[facility] LABCLIA [id number] [place] [address] [place] Potassium [Moles/Vol] 5.8 mmol/L High 3.5-5.0 [facility] Comment on above: Order Comment: Speci men Type: VENOUS BLOOD SPECIMENOrdering Facility: [facility] Address: [address] [place] [address] Performed By: #### 2 4344-4 ####[facility] LABCLIA [id number] [place] [address] [place] Sodium [Moles/Vol] 141 mmol/L Normal 136-144 [facility] Comment on above: Order Comment: Speci men Type: VENOUS BLOOD SPECIMENOrdering Facility: [facility] Address: [address] [id number] Performed By: #### 2 4344-4 ####[facility] LABCLIA [id number] [address] [id number] [place] HISTORY PHYSICALon HISTORY PHYSICAL Normal [facility] HISTORY PHYSICAL Normal [facility] IR NEPHROSTOMY TUBE PLACEon 09-19-[address] Normal [facility] Magnesium SerPl-mCncon 09-19 Magnesium [Mass/Vol] 1.4 mg/dL Low 1.7-2.3 [facility] Comment on above: Order Comment: Speci men Type: BLOOD SPECIMENOrdering Facility: [facility] Address: [address] [address] Performed By: #### 2 4323-8, 2777-1, 2157-6, 19691-1 ####[facility] LABCLIA [id number] [place] [address] [place] NURSING PROGon 09-19-2022 NURSING PROG Normal [facility] PT EDon 09-19-2022 PT ED Normal [facility] PT panel Coag (PPP)on 2022 INR Coag (PPP) [Relative time] 1.3 {INR} Normal 0.9-1.3 [facility] Comment on above: Order Comment: Speci men Type: BLOOD SPECIMENOrdering Facility: [facility] Address: [address] [phone] Result Comment: Kendra min K Antagonist (VKA) Therapeutic Range: INR 2 to 3 (Target INR of 2.5)Note: For patients treated with VKA drugs, such as warfarin, the [place] [employer] 2012 Guideline recommends [...] al. Chest 2012, 141:7S-47SNishimura RA, et al. [facility] 2017, 70: 252-289 Performed By: #### 3 4528-0 ####[facility] [id number] [place] [address] [place] PT Coag (PPP) [Time] 13.7 s High 9.7-13.0 [facility] Comment on above: Order Comment: Speci men Type: BLOOD SPECIMENOrdering Facility: [facility] Address: [address] [place] [address] Performed By: #### 3 4528-0 ####[facility] [id number] [place] [address] [place] Phosphate SerPl-mCncon 09-19 Phosphate [Mass/Vol] 5.4 mg/dL High 2.7-4.8 [facility] Comment on above: Order Comment: Speci gabbie Type: BLOOD SPECIMENOrdering Facility: [facility] Address: [address] [place] [address] Performed By: #### 2 4323-8, 2777-1, 2157-6, 06554-3 ####[facility] [id number] [place] [address] [place] SARS-CoV-2 RNA Resp Ql ROSSANA+p robeon 09-19-2022 SARS-CoV-2 (COVID-19) RNA ROSSANA+probe Ql (Resp) COVID 19 RESULT: Not detected The method used is RT-PCR or an equivalent NAAT method. Reference Range(the expected result in uninfected individuals): Not detected Normal [facility] Comment on above: Performed By: #### 9 4500-6 ####[facility] LABCLIA [id number] [address] [employer] PCRon S. aureus and MRSA panel ROSSANA+probe (Nose) Abnormal Negative [facility] Comment on above: Order Comment: Speci men Type: SWAB OF INTERNAL NOSEOrdering Facility: [facility] Address: [address] [place] [address] Result Comment: Posi tive for Staphylococcus aureus by PCR.Negative for MRSA by PCR Performed By: #### S APCR ####[facility] LABCLIA [id number] [address] [place] Urinalysis complete panel (U )on 09-19-2022 Bacteria LM.HPF (Urine sed) [#/Area] Moderate Abnormal None Seen [facility] Comment on above: Order Comment: Speci men Type: URINE SPECIMENOrdering Facility: [facility] Address: [address] [address] Performed By: #### 2 4356-8 ####[facility] LABCLIA [id number] [address] [place] Bilirubin Ql (U) Negative Normal Negative [facility] Comment on above: Order Comment: Speci men Type: URINE SPECIMENOrdering Facility: [facility] Address: [address] [place] [address] Performed By: #### 2 4356-8 ####[facility] LABCLIA [id number] [address] [place] Clarity (Unsp spec) Turbid Abnormal Clear [facility] Comment on above: Order Comment: Speci men Type: URINE SPECIMENOrdering Facility: [facility] Address: [address] [address] Performed By: #### 2 4356-8 ####[facility] LABCLIA [id number] [place] [address] [place] Color (U) Yellow Normal Yellow [facility] Comment on above: Order Comment: Speci men Type: URINE SPECIMENOrdering Facility: [facility] Address: [address] [address] Performed By: #### 2 4356-8 ####[facility] LABCLIA [id number] [place] [address] [place] Glucose Test strip (U) [Mass/Vol] Negative Normal Trace, Negative [facility] Comment on above: Order Comment: Speci men Type: URINE SPECIMENOrdering Facility: [facility] Address: [address] [place] [address] Performed By: #### 2 4356-8 ####[facility] LABIA [id number] [place] [address] [place] Hemoglobin Ql (U) 3+ Abnormal Negative, Trace [facility] Comment on above: Order Comment: Speci men Type: URINE SPECIMENOrdering Facility: [facility] Address: [address] [place] [address] Performed By: #### 2 4356-8 ####[facility] LABIA [id number] [place] [address] [place] Ketones Ql (U) Negative Normal Trace, Negative [facility] Comment on above: Order Comment: Speci men Type: URINE SPECIMENOrdering Facility: [facility] Address: [address] Performed By: #### 2 4356-8 ####[facility] LABIA [id number] [place] [address] [place] Leukocyte esterase Test strip Ql (U) 500 Arnulfo/uL Abnormal Negative, 25 Arnulfo/uL [facility] Comment on above: Order Comment: Speci men Type: URINE SPECIMENOrdering Facility: [facility] Address: [address] [place] [address] Performed By: #### 2 4356-8 ####[facility] LABIA [id number] [place] [address] [place] Nitrite Ql (U) 2+ Abnormal Negative [facility] Comment on above: Order Comment: Speci men Type: URINE SPECIMENOrdering Facility: [facility] Address: [address] [place] [address] Performed By: #### 2 4356-8 ####[facility] LABIA [id number] [place] [address] [place] pH (U) 6.0 [pH] Normal 5.0-8.0 [facility] Comment on above: Order Comment: Speci men Type: URINE SPECIMENOrdering Facility: [facility] Address: [address] [place] [address] Performed By: #### 2 4356-8 ####[facility] [id number] [place] [address] [place] Protein (U) [Mass/Vol] 2+ Abnormal Trace , Negative [facility] Comment on above: Order Comment: Speci men Type: URINE SPECIMENOrdering Facility: [facility] Address: [address] [place] [address] Performed By: #### 2 4356-8 ####[facility] LABIA [id number] [place] [address] [place] RBC LM.HPF (Urine sed) [#/Area] /[HPF] Abnormal 0-3 /HPF [facility] Comment on above: Order Comment: Speci men Type: URINE SPECIMENOrdering Facility: [facility] Address: [address] [place], [place] [address] Performed By: #### 2 4356-8 ####[facility] LABIA [id number] [place] [address] [place] Specific gravity (U) [Rel density] 1.015 Normal 1.005-1.030 [facility] Comment on above: Order Comment: Speci men Type: URINE SPECIMENOrdering Facility: [facility] Address: [address] Performed By: #### 2 4356-8 ####[facility] LABCLIA [id number] [place] [address] [place] Urobilinogen Ql (U) Negative Normal Negative [facility] Comment on above: Order Comment: Speci men Type: URINE SPECIMENOrdering Facility: [facility] Address: [address] Performed By: #### 2 4356-8 ####[facility] LABCLIA [id number] [place] [address] [place] WBC LM.HPF (Urine sed) [#/Area] /[HPF] Abnormal 0-5 /HPF [facility] Comment on above: Order Comment: Speci men Type: URINE SPECIMENOrdering Facility: [facility] Address: [address] [place], [place] [address] Performed By: #### 2 4356-8 ####[facility] LABIA [id number] [place] [address] [place] Urinalysis complete pnl Uron 09-19-2022 Urinalysis complete panel (U) Normal [facility] Comment on above: Order Comment: Speci men Type: URINE SPECIMENOrdering Facility: [facility] Address: [address] [place], [place] [address] Performed By: #### 2 4356-8 ####[facility] LABIA [id number] [place] [address] [place] XR ABDOMEN 1V SUPINEon 09-19 XR ABDOMEN 1V SUPINE Normal [facility] XR CHEST 1V FRONTAL PORTon 0 09-19-2022 XR CHEST 1V FRONTAL PORT Normal [facility] XR CHEST 1V FRONTAL PORT Normal [facility] CNOVon 09-01-2022 CNOV Normal [facility] CNPNon 08-17-2022 CNPN Normal [facility] CASE MANAGEMon 08-13-2022 CASE MANAGEM Normal [facility] CNPNon 08-13-2022 CNPN Normal [facility] CASE MANAGEMon 08-12-2022 CASE MANAGEM Normal [facility] CONSULT PROGon 08-12-2022 CONSULT PROG Normal [facility] Basic metabolic 2000 panelon 08-11-2022 Anion gap [Moles/Vol] 10 mmol/L Normal 9-18 [facility] Comment on above: Order Comment: Speci men Type: BLOOD SPECIMENOrdering Facility: [facility] Address: [address] [place] [address] Performed By: #### 2 4321-2 ####[facility] LABCLIA [id number] [place] [address] [place] Calcium [Mass/Vol] 8.7 mg/dL Normal 8.5-10.2 [facility] Comment on above: Order Comment: Speci men Type: BLOOD SPECIMENOrdering Facility: [facility] Address: [address] [place], [place] [address] Performed By: #### 2 4321-2 ####[facility] LABCLIA [id number] [place] [address] [place] Chloride [Moles/Vol] 107 mmol/L High 97-105 [facility] Comment on above: Order Comment: Speci men Type: BLOOD SPECIMENOrdering Facility: [facility] Address: [address] [place] [address] Performed By: #### 2 4321-2 ####[facility] LABCLIA [id number] [place] [address] [place] CO2 [Moles/Vol] 23 mmol/L Normal 22-30 [facility] Comment on above: Order Comment: Speci men Type: BLOOD SPECIMENOrdering Facility: [facility] Address: [address] [id number] Performed By: #### 2 4321-2 ####[facility] LABIA [id number] [address] STATES [facility] Creatinine [Mass/Vol] 0.73 mg/dL Normal 0.73-1.22 [facility] Comment on above: Order Comment: Speci men Type: BLOOD SPECIMENOrdering Facility: [facility] Address: [address] [address] Performed By: #### 2 4321-2 ####[facility] LABIA [id number] [address] OF [facility] ESTIMATED GLOMERULAR FILTRATION RATE 100 mL/min/1.73m??? Normal >=60 [facility] Comment on above: Order Comment: Speci men Type: BLOOD SPECIMENOrdering Facility: [facility] Address: [address] [address] Result Comment: Ignacia mated Glomerular Filtration Rate [...] Performed By: #### 2 4321-2 ####[facility] LABIA [id number] [place] [address] [place] Glucose [Mass/Vol] 74 mg/dL Normal 74-99 [facility] Comment on above: Order Comment: Speci men Type: BLOOD SPECIMENOrdering Facility: [facility] Address: [address] [place] [address] Result Comment: The [place] [employer] (ADA) provides guidance for cutoff [...] Standards of Medical Care in Diabetes 2016, [place] [employer]. Diabetes Care. 2016.39(Suppl 1). Performed By: #### 2 4321-2 ####[facility] LABCLIA [id number] [place] [address] [place] Potassium [Moles/Vol] 4.0 mmol/L Normal 3.7-5.1 [facility] Comment on above: Order Comment: Speci men Type: BLOOD SPECIMENOrdering Facility: [facility] Address: [address] [address] Performed By: #### 2 4321-2 ####[facility] LABIA [id number] [address] STATES OF [facility] Sodium [Moles/Vol] 140 mmol/L Normal 136-144 [facility] Comment on above: Order Comment: [place] gabbie Type: BLOOD SPECIMENOrdering Facility: [facility] Address: [address] [address] Performed By: #### 2 4321-2 ####[facility] LABIA [id number] [place] [address] [place] Urea nitrogen [Mass/Vol] 7 mg/dL Low 9-24 [facility] Comment on above: Order Comment: Speci men Type: BLOOD SPECIMENOrdering Facility: [facility] Address: [address] [address] Performed By: #### 2 4321-2 ####[facility] LABIA [id number] [place] [address] [place] CBC panel Auto (Bld)on 08-11 Erythrocyte distribution width (RBC) [Ratio] 13.6 % Normal 11.5-15.0 [facility] Comment on above: Order Comment: Speci men Type: BLOOD SPECIMENOrdering Facility: [facility] Address: [address] [place], [place] [address] Performed By: #### 5 8410-2 ####[facility] LABIA [id number] [address] [place] Hematocrit (Bld) [Volume fraction] 28.0 % Low 39.0-51.0 [facility] Comment on above: Order Comment: Speci men Type: BLOOD SPECIMENOrdering Facility: [facility] Address: [address] [place], [place] [address] Performed By: #### 5 8410-2 ####[facility] LABIA [id number] [address] [place] Hemoglobin (Bld) [Mass/Vol] 9.1 g/dL Low 13.0-17.0 [facility] Comment on above: Order Comment: Speci men Type: BLOOD SPECIMENOrdering Facility: [facility] Address: [address] [place], [place] [address] Performed By: #### 5 8410-2 ####[facility] LABIA [id number] [place] [address] [place] MCH (RBC) [Entitic mass] 28.3 pg Normal 26.0-34.0 [facility] Comment on above: Order Comment: Speci men Type: BLOOD SPECIMENOrdering Facility: [facility] Address: [address] Performed By: #### 5 8410-2 ####[facility] LABIA [id number] [place] [address] [place] MCHC (RBC) [Mass/Vol] 32.5 g/dL Normal 30.5-36.0 [facility] Comment on above: Order Comment: Speci men Type: BLOOD SPECIMENOrdering Facility: [facility] Address: [address] [place] [address], [place] Performed By: #### 5 8410-2 ####[facility] LABCLIA [id number] [address] STATES OF [facility] MCV (RBC) [Entitic vol] 87.2 fL Normal 80.0-100.0 [facility] Comment on above: Order Comment: Speci men Type: BLOOD SPECIMENOrdering Facility: [facility] Address: [address] [place] [address] Performed By: #### 5 8410-2 ####[facility] LABIA [id number] [address] [place] Nucleated RBC (Bld) [#/Vol] 10*3/uL Normal <0.01 [facility] Comment on above: Order Comment: Speci men Type: BLOOD SPECIMENOrdering Facility: [facility] Address: [address] Performed By: #### 5 8410-2 ####[facility] LABIA [id number] [place] [address] [place] Platelet mean volume (Bld) [Entitic vol] 9.5 fL Normal 9.0-12.7 [facility] Comment on above: Order Comment: Speci men Type: BLOOD SPECIMENOrdering Facility: [facility] Address: [address] [place] [address] Performed By: #### 5 8410-2 ####[facility] LABIA [id number] [place] [address] [place] Platelets (Bld) [#/Vol] 251 10*3/uL Normal 150-400 [facility] Comment on above: Order Comment: Speci men Type: BLOOD SPECIMENOrdering Facility: [facility] Address: [address] [place] [address] Performed By: #### 5 8410-2 ####[facility] LABCLIA [id number] [place] [address] [place] RBC (Bld) [#/Vol] 3.21 10*6/uL Low 4.20-6.00 [facility] Comment on above: Order Comment: Speci men Type: BLOOD SPECIMENOrdering Facility: [facility] Address: [address] [place] [address] Performed By: #### 5 8410-2 ####[facility] LABCLIA [id number] [place] [address] [place] WBC (Bld) [#/Vol] 4.70 10*3/uL Normal 3.70-11.00 [facility] Comment on above: Order Comment: Speci men Type: BLOOD SPECIMENOrdering Facility: [facility] Address: [address] [place] [address] Performed By: #### 5 8410-2 ####[facility] LABCLIA [id number] [place] [address] [place] Basic metabolic 2000 panelon 08-10-2022 Anion gap [Moles/Vol] 11 mmol/L Normal 9-18 [facility] Comment on above: Order Comment: Speci men Type: BLOOD SPECIMENOrdering Facility: [facility] Address: [address] [place] [address] Performed By: #### 2 4321-2 ####[facility] LABCLIA [id number] [place] [address] [place] Calcium [Mass/Vol] 9.1 mg/dL Normal 8.5-10.2 [facility] Comment on above: Order Comment: Speci men Type: BLOOD SPECIMENOrdering Facility: [facility] Address: [address] [place], [place] [address] Performed By: #### 2 4321-2 ####[facility] LABCLIA [id number] [place] [address] [place] Chloride [Moles/Vol] 102 mmol/L Normal 97-105 [facility] Comment on above: Order Comment: Speci men Type: BLOOD SPECIMENOrdering Facility: [facility] Address: [address] [place] [address] Performed By: #### 2 4321-2 ####[facility] LABCLIA [id number] [place] [address] [place] CO2 [Moles/Vol] 22 mmol/L Normal 22-30 [facility] Comment on above: Order Comment: Speci men Type: BLOOD SPECIMENOrdering Facility: [facility] Address: [address] [place] [address] Performed By: #### 2 4321-2 ####[facility] LABCLIA [id number] [address] OF [facility] Creatinine [Mass/Vol] 0.67 mg/dL Low 0.73-1.22 [facility] Comment on above: Order Comment: Speci men Type: BLOOD SPECIMENOrdering Facility: [facility] Address: [address] [place] [address] Performed By: #### 2 4321-2 ####[facility] LABCLIA [id number] [address] ESTIMATED GLOMERULAR FILTRATION RATE 102 mL/min/1.73m??? Normal >=60 [facility] Comment on above: Order Comment: Speci men Type: BLOOD SPECIMENOrdering Facility: [facility] Address: [address] [address] Result Comment: Ignacia mated Glomerular Filtration Rate [...] Performed By: #### 2 4321-2 ####[facility] LABCLIA [id number] [place] [address] [place] Glucose [Mass/Vol] 128 mg/dL High 74-99 [facility] Comment on above: Order Comment: Speci men Type: BLOOD SPECIMENOrdering Facility: [facility] Address: [address] [address] Result Comment: The [place] [employer] (ADA) provides guidance for cutoff [...] Standards of Medical Care in Diabetes 2016, [place] [employer]. Diabetes Care. 2016.39(Suppl 1). Performed By: #### 2 4321-2 ####[facility] LABIA [id number] [place] [address] [place] Potassium [Moles/Vol] 3.8 mmol/L Normal 3.7-5.1 [facility] Comment on above: Order Comment: Speci men Type: BLOOD SPECIMENOrdering Facility: [facility] Address: [address] [place] [address] Performed By: #### 2 4321-2 ####[facility] LABIA [id number] [place] [address] [place] Sodium [Moles/Vol] 135 mmol/L Low 136-144 [facility] Comment on above: Order Comment: Speci men Type: BLOOD SPECIMENOrdering Facility: [facility] Address: [address] [address] Performed By: #### 2 4321-2 ####[facility] LABIA [id number] [place] [id number] [place] Urea nitrogen [Mass/Vol] 9 mg/dL Normal 9-24 [facility] Comment on above: Order Comment: Speci men Type: BLOOD SPECIMENOrdering Facility: [facility] Address: [address] [place] [address] Performed By: #### 2 4321-2 ####[facility] LABCLIA [id number] [place] [address] [place] CASE MGT INIT ASSESon 2022 CASE MGT INIT ASSES Normal [facility] CBC panel Auto (Bld)on 08-10 Erythrocyte distribution width (RBC) [Ratio] 13.2 % Normal 11.5-15.0 [facility] Comment on above: Order Comment: Speci men Type: BLOOD SPECIMENOrdering Facility: [facility] Address: [address] [place] [address] Performed By: #### 5 8410-2 ####[facility] LABCLIA [id number] [place] [address] [place] Hematocrit (Bld) [Volume fraction] 28.5 % Low 39.0-51.0 [facility] Comment on above: Order Comment: Speci men Type: BLOOD SPECIMENOrdering Facility: [facility] Address: [address] [place] [address] Performed By: #### 5 8410-2 ####[facility] LABCLIA [id number] [place] [address] [place] Hemoglobin (Bld) [Mass/Vol] 9.7 g/dL Low 13.0-17.0 [facility] Comment on above: Order Comment: Speci men Type: BLOOD SPECIMENOrdering Facility: [facility] Address: [address] [place] [address] Performed By: #### 5 8410-2 ####[facility] LABCLIA [id number] [id number] MCH (RBC) [Entitic mass] 28.9 pg Normal 26.0-34.0 [facility] Comment on above: Order Comment: Speci men Type: BLOOD SPECIMENOrdering Facility: [facility] Address: [address] [place] [address] Performed By: #### 5 8410-2 ####[facility] LABCLIA [id number] [address] [place] MCHC (RBC) [Mass/Vol] 34.0 g/dL Normal 30.5-36.0 [facility] Comment on above: Order Comment: Speci men Type: BLOOD SPECIMENOrdering Facility: [facility] Address: [address] [place] [address] Performed By: #### 5 8410-2 ####[facility] LABCLIA [id number] [address] [place] MCV (RBC) [Entitic vol] 84.8 fL Normal 80.0-100.0 [facility] Comment on above: Order Comment: Speci men Type: BLOOD SPECIMENOrdering Facility: [facility] Address: [address] [place], [place] [address] Performed By: #### 5 8410-2 ####[facility] LABCLIA [id number] [address] [place] Nucleated RBC (Bld) [#/Vol] 10*3/uL Normal <0.01 [facility] Comment on above: Order Comment: Speci men Type: BLOOD SPECIMENOrdering Facility: [facility] Address: [address] [place] [address] Performed By: #### 5 8410-2 ####[facility] LABCLIA [id number] [address] [place] Platelet mean volume (Bld) [Entitic vol] 9.3 fL Normal 9.0-12.7 [facility] Comment on above: Order Comment: Speci men Type: BLOOD SPECIMENOrdering Facility: [facility] Address: [address] [address] Performed By: #### 5 8410-2 ####[facility] LABCLIA [id number] [place] [address] [place] Platelets (Bld) [#/Vol] 234 10*3/uL Normal 150-400 [facility] Comment on above: Order Comment: Speci men Type: BLOOD SPECIMENOrdering Facility: [facility] Address: [address] Performed By: #### 5 8410-2 ####[facility] LABIA [id number] [place] [address] [place] RBC (Bld) [#/Vol] 3.36 10*6/uL Low 4.20-6.00 [facility] Comment on above: Order Comment: Speci men Type: BLOOD SPECIMENOrdering Facility: [facility] Address: [address] [place] [address] Performed By: #### 5 8410-2 ####[facility] LABIA [id number] [place] [address] [place] WBC (Bld) [#/Vol] 5.31 10*3/uL Normal 3.70-11.00 [facility] Comment on above: Order Comment: Speci men Type: BLOOD SPECIMENOrdering Facility: [facility] Address: [address] [place] [address] Performed By: #### 5 8410-2 ####[facility] LABIA [id number] [place] [address] [place] CONSULT PROGon 08-10-2022 CONSULT PROG Normal [facility] NURSING PROGon 08-10-2022 NURSING PROG Normal [facility] ANES POSTPROC EVALon 023 ANES POSTPROC EVAL Normal [facility] ANES PRE-OPon 08-09-2022 ANES PRE-OP Normal [facility] BRIEF OP NOTon 08-09-2022 BRIEF OP NOT Normal [facility] Bacteria Ur Culton 3 Bacteria identified Cx Nom (U) Abnormal [facility] Comment on above: Performed By: #### 6 30-4 ####[facility] LABCLIA [id number] [place] [address] [place] Basic metabolic 2000 panelon 08-09-2022 Anion gap [Moles/Vol] 10 mmol/L Normal 9-18 [facility] Comment on above: Order Comment: Speci men Type: BLOOD SPECIMENOrdering Facility: [facility] Address: [address] [place] [address] Performed By: #### 2 4321-2 ####[facility] LABCLIA [id number] [place] [address] [place] Calcium [Mass/Vol] 8.7 mg/dL Normal 8.5-10.2 [facility] Comment on above: Order Comment: Speci men Type: BLOOD SPECIMENOrdering Facility: [facility] Address: [address] [place] [address] Performed By: #### 2 4321-2 ####[facility] LABCLIA [id number] [place] [address] [place] Chloride [Moles/Vol] 108 mmol/L High 97-105 [facility] Comment on above: Order Comment: Speci men Type: BLOOD SPECIMENOrdering Facility: [facility] Address: [address] [id number] Performed By: #### 2 4321-2 ####[facility] LABCLIA [id number] [place] [address] [place] CO2 [Moles/Vol] 23 mmol/L Normal 22-30 [facility] Comment on above: Order Comment: Speci men Type: BLOOD SPECIMENOrdering Facility: [facility] Address: [address] [address] Performed By: #### 2 4321-2 ####[facility] LABIA [id number] [address] STATES OF [facility] Creatinine [Mass/Vol] 0.72 mg/dL Low 0.73-1.22 [facility] Comment on above: Order Comment: Speci men Type: BLOOD SPECIMENOrdering Facility: [facility] Address: [address] [address] Performed By: #### 2 4321-2 ####[facility] LABIA [id number] [address] STATES OF [facility] ESTIMATED GLOMERULAR FILTRATION RATE 100 mL/min/1.73m??? Normal >=60 [facility] Comment on above: Order Comment: Speci men Type: BLOOD SPECIMENOrdering Facility: [facility] Address: [address] [place] [address] Result Comment: Ignacia mated Glomerular Filtration Rate [...] Performed By: #### 2 4321-2 ####[facility] LABIA [id number] [address] [place] Glucose [Mass/Vol] 74 mg/dL Normal 74-99 [facility] Comment on above: Order Comment: Speci men Type: BLOOD SPECIMENOrdering Facility: [facility] Address: [address] [place] [address] Result Comment: The [place] Diabetes [employer] (ADA) provides guidance for cutoff [...] Standards of Medical Care in Diabetes 2016, [place] [employer]. Diabetes Care. 2016.39(Suppl 1). Performed By: #### 2 4321-2 ####[facility] LABCLIA [id number] [place] [address] [place] Potassium [Moles/Vol] 3.8 mmol/L Normal 3.7-5.1 [facility] Comment on above: Order Comment: Speci men Type: BLOOD SPECIMENOrdering Facility: [facility] Address: [address] [place] [address] Performed By: #### 2 4321-2 ####[facility] LABIA [id number] [place] [address] [place] Sodium [Moles/Vol] 141 mmol/L Normal 136-144 [facility] Comment on above: Order Comment: [place] men Type: BLOOD SPECIMENOrdering Facility: [facility] Address: [address] [place] [address] Performed By: #### 2 4321-2 ####[facility] LABIA [id number] [place] [address] [place] Urea nitrogen [Mass/Vol] 8 mg/dL Low 9-24 [facility] Comment on above: Order Comment: Speci men Type: BLOOD SPECIMENOrdering Facility: [facility] Address: [address] [place] [address] Performed By: #### 2 4321-2 ####[facility] LABIA [id number] [place] [address] [place] CALCULI ANALYSISon 3 Calculus analysis [Interp] Normal [facility] Comment on above: Order Comment: Speci men Type: CALCULUS SPECIMENOrdering Facility: [facility] Address: [address] [place] [address] Result Comment: This test was developed and its performance characteristics determined by [facility] [place] [facility] It has not been cleared or approved by the FDA. [facility] is regulated under CLIA as qualified to perform high-complexity testing. This test is used for clinical purposes. It should not be regarded as investigational or for research. Performed By: #### C SA ####[facility] LABCLIA [id number] [address] OF [facility] CALCULUS COLOR BEIGE Normal [facility] Comment on above: Order Comment: Speci men Type: CALCULUS SPECIMENOrdering Facility: [facility] Address: [address] [place] [address] Performed By: #### C SA ####[facility] LABIA [id number] [address] [place] CALCULUS COMPOSITION 1 90% Calcium Phosphate Normal [facility] Comment on above: Order Comment: Speci men Type: CALCULUS SPECIMENOrdering Facility: [facility] Address: [address] [place] [address] Performed By: #### C SA ####[facility] LABIA [id number] [address] [place] CALCULUS COMPOSITION 2 10% Minor Components Normal [facility] Comment on above: Order Comment: Speci men Type: CALCULUS SPECIMENOrdering Facility: [facility] Address: [address] [place] [address] Performed By: #### C SA ####[facility] LABIA [id number] [address] [place] CALCULUS SIZE AND WT Multiple pieces. 1.3581 GRAMS Normal [facility] Comment on above: Order Comment: Speci men Type: CALCULUS SPECIMENOrdering Facility: [facility] Address: [address] [address] Performed By: #### C SA ####[facility] LABIA [id number] [place] [address] [place] CALCULUS TYPE Calculus, CALCULI/CALCULUS Normal [facility] Comment on above: Order Comment: Speci men Type: CALCULUS SPECIMENOrdering Facility: [facility] Address: [address] [address] Performed By: #### C SA ####[facility] LABIA [id number] [place] [address] [place] CBC panel Auto (Bld)on 08-09 Erythrocyte distribution width (RBC) [Ratio] 13.5 % Normal 11.5-15.0 [facility] Comment on above: Order Comment: Speci men Type: BLOOD SPECIMENOrdering Facility: [facility] Address: [address] [place], [place] [address] Performed By: #### 5 8410-2 ####[facility] LABIA [id number] [place] [address] [place] Hematocrit (Bld) [Volume fraction] 31.1 % Low 39.0-51.0 [facility] Comment on above: Order Comment: Speci men Type: BLOOD SPECIMENOrdering Facility: [facility] Address: [address] [place], [place] [address] Performed By: #### 5 8410-2 ####[facility] LABIA [id number] [place] [address] [place] Hemoglobin (Bld) [Mass/Vol] 9.7 g/dL Low 13.0-17.0 [facility] Comment on above: Order Comment: Speci men Type: BLOOD SPECIMENOrdering Facility: [facility] Address: [address] [place], [place] [address] Performed By: #### 5 8410-2 ####[facility] LABIA [id number] [place] [address] [place] MCH (RBC) [Entitic mass] 27.9 pg Normal 26.0-34.0 [facility] Comment on above: Order Comment: Speci men Type: BLOOD SPECIMENOrdering Facility: [facility] Address: [address] [place] [address] Performed By: #### 5 8410-2 ####[facility] [id number] [address] [place] MCHC (RBC) [Mass/Vol] 31.2 g/dL Normal 30.5-36.0 [facility] Comment on above: Order Comment: Speci men Type: BLOOD SPECIMENOrdering Facility: [facility] Address: [address] [place] [address] Performed By: #### 5 8410-2 ####[facility] [id number] [address] STATES OF [facility] MCV (RBC) [Entitic vol] 89.4 fL Normal 80.0-100.0 C [facility] Comment on above: Order Comment: Speci men Type: BLOOD SPECIMENOrdering Facility: [facility] Address: [address] [place] [address] Performed By: #### 5 8410-2 ####[facility] [id number] [address] [place] Nucleated RBC (Bld) [#/Vol] 10*3/uL Normal <0.01 [facility] Comment on above: Order Comment: Speci men Type: BLOOD SPECIMENOrdering Facility: [facility] Address: [address] [place] [address] Performed By: #### 5 8410-2 ####[facility] [id number] [address] [place] Platelet mean volume (Bld) [Entitic vol] 9.7 fL Normal 9.0-12.7 [facility] Comment on above: Order Comment: Speci men Type: BLOOD SPECIMENOrdering Facility: [facility] Address: [address] [place], [place] [address] Performed By: #### 5 8410-2 ####[facility] LABCLIA [id number] [place] [address] [place] Platelets (Bld) [#/Vol] 258 10*3/uL Normal 150-400 [facility] Comment on above: Order Comment: Speci men Type: BLOOD SPECIMENOrdering Facility: [facility] Address: [address] [place], [place] [address] Performed By: #### 5 8410-2 ####[facility] LABCLIA [id number] [place] [address] [place] RBC (Bld) [#/Vol] 3.48 10*6/uL Low 4.20-6.00 [facility] Comment on above: Order Comment: Speci men Type: BLOOD SPECIMENOrdering Facility: [facility] Address: [address] [place], [place] [address] Performed By: #### 5 8410-2 ####[facility] LABCLIA [id number] [place] [address] [place] WBC (Bld) [#/Vol] 3.10 10*3/uL Low 3.70-11.00 [facility] Comment on above: Order Comment: Speci men Type: BLOOD SPECIMENOrdering Facility: [facility] Address: [address] [place] [address] Performed By: #### 5 8410-2 ####[facility] LABCLIA [id number] [place] [id number] [place] CNDSon 08-09-2022 CNDS Normal [facility] CONSULTon 08-09-2022 CONSULT Normal [facility] NURSING PROGon 08-09-2022 NURSING PROG Normal [facility] NURSING PROG Normal [facility] NURSING PROG Normal [facility] OPERATIVE NOon 08-09-2022 OPERATIVE NO Normal [facility] PT panel Coag (PPP)on 2022 INR Coag (PPP) [Relative time] 1.0 {INR} Normal 0.9-1.3 [facility] Comment on above: Order Comment: Cierra cartwright Type: BLOOD SPECIMENOrdering Facility: [facility] Address: [address] [address] Result Comment: Kendra min K Antagonist (VKA) Therapeutic Range: INR 2 to 3 (Target INR of 2.5)Note: For patients treated with VKA drugs, such as warfarin, the [place] [employer] 2012 Guideline recommends [...] of 3).Farzaneh GARY, et al. Chest 2012, 141:7S-47SMatthew HENLEY, et al. [facility] 2017, 70: 252-289 Performed By: #### 3 4528-0, 44368-1 ####[facility] LABIA [id number] [place] [address] [place] PT Coag (PPP) [Time] 10.3 s Normal 9.7-13.0 [facility] Comment on above: Order Comment: Cierra cartwright Type: BLOOD SPECIMENOrdering Facility: [facility] Address: [address] [place] [address] Performed By: #### 3 4528-0, 87547-6 ####[facility] LABIA [id number] [address] [place] TYPE + SCREENon 08-09-2022 ABO O Normal [facility] Comment on above: Order Comment: Speci men Type: BLOOD SPECIMENOrdering Facility: [facility] Address: [address] [place] [address] Performed By: #### T SCR ####CC MAIN BLOOD BANKCLIA [id number] [address] [place] HISTORICAL AB SCR STATUS Negative Normal [facility] Comment on above: Order Comment: Speci men Type: BLOOD SPECIMENOrdering Facility: [facility] Address: [address] [place] [address] Performed By: #### T SCR ####CC MAIN BLOOD BANKCLIA [id number] [address] [place] Rh Nom (Bld) Positive Normal [facility] Comment on above: Order Comment: Speci men Type: BLOOD SPECIMENOrdering Facility: [facility] Address: [address] [place] [address] Performed By: #### T SCR ####CC MAIN BLOOD BANKCLIA [id number] [address] TYPE AND SCREEN EXPIRATION 08/12/2022 23:59 Normal [facility] Comment on above: Order Comment: Speci men Type: BLOOD SPECIMENOrdering Facility: [facility] Address: [address] [place] [address] Performed By: #### T SCR ####CC MAIN BLOOD BANKCLIA [id number] [address] [place] aPTT PPPon 08-09-2022 aPTT Coag (PPP) [Time] 28.2 s Normal 23.0-32.4 [facility] Comment on above: Order Comment: Speci men Type: BLOOD SPECIMENOrdering Facility: [facility] Address: [address] [place] [address] Performed By: #### 3 4528-0, 62028-6 ####[facility] LABCLIA [id number] [place] [address] [place] Basic metabolic 2000 panelon 08-08-2022 Anion gap [Moles/Vol] 9 mmol/L Normal 9-18 [facility] Comment on above: Order Comment: Speci men Type: BLOOD SPECIMENOrdering Facility: [facility] Address: [address] [place], [place] [address] Performed By: #### 2 4321-2 ####[facility] LABCLIA [id number] [place] [address] [place] Calcium [Mass/Vol] 7.3 mg/dL Low 8.5-10.2 [facility] Comment on above: Order Comment: Speci men Type: BLOOD SPECIMENOrdering Facility: [facility] Address: [address] [place], [place] [address] Performed By: #### 2 4321-2 ####[facility] LABCLIA [id number] [place] [address] [place] Chloride [Moles/Vol] 115 mmol/L High 97-105 [facility] Comment on above: Order Comment: Speci men Type: BLOOD SPECIMENOrdering Facility: [facility] Address: [address] [place], [place] [address] Performed By: #### 2 4321-2 ####[facility] LABCLIA [id number] [place] [address] [place] CO2 [Moles/Vol] 19 mmol/L Low 22-30 [facility] Comment on above: Order Comment: Speci men Type: BLOOD SPECIMENOrdering Facility: [facility] Address: [address] [place], [place] [address] Performed By: #### 2 4321-2 ####[facility] LABCLIA [id number] [place] [address] [place] Creatinine [Mass/Vol] 0.54 mg/dL Low 0.73-1.22 [facility] Comment on above: Order Comment: Cierra cartwright Type: BLOOD SPECIMENOrdering Facility: [facility] Address: [address] [address] Performed By: #### 2 4321-2 ####[facility] LABCLIA [id number] [address] ESTIMATED GLOMERULAR FILTRATION RATE 109 mL/min/1.73m??? Normal >=60 [facility] Comment on above: Order Comment: Cierra cartwright Type: BLOOD SPECIMENOrdering Facility: [facility] Address: [address] [address] Result Comment: Ignacia mated Glomerular Filtration Rate [...] Performed By: #### 2 4321-2 ####[facility] LABCLIA [id number] [address] STATES OF [facility] Glucose [Mass/Vol] 74 mg/dL Normal 74-99 [facility] Comment on above: Order Comment: Cierra cartwright Type: BLOOD SPECIMENOrdering Facility: [facility] Address: [address] [place] [address] Result Comment: The [place] [employer] (ADA) provides guidance for cutoff [...] Standards of Medical Care in Diabetes 2016, [place] [employer]. Diabetes Care. 2016.39(Suppl 1). Performed By: #### 2 4321-2 ####[facility] LABIA [id number] [place] [address] [place] Potassium [Moles/Vol] 3.3 mmol/L Low 3.7-5.1 [facility] Comment on above: Order Comment: Speci men Type: BLOOD SPECIMENOrdering Facility: [facility] Address: [address] [address] Performed By: #### 2 4321-2 ####[facility] LABIA [id number] [place] [address] [place] Sodium [Moles/Vol] 143 mmol/L Normal 136-144 [facility] Comment on above: Order Comment: Speci men Type: BLOOD SPECIMENOrdering Facility: [facility] Address: [address] [address] Performed By: #### 2 4321-2 ####[facility] LABIA [id number] [place] [address] [place] Urea nitrogen [Mass/Vol] 7 mg/dL Low 9-24 [facility] Comment on above: Order Comment: Speci men Type: BLOOD SPECIMENOrdering Facility: [facility] Address: [address] Performed By: #### 2 4321-2 ####[facility] LABIA [id number] [place] [address] [place] CBC panel Auto (Bld)on 08-08 Erythrocyte distribution width (RBC) [Ratio] 13.5 % Normal 11.5-15.0 [facility] Comment on above: Order Comment: Speci men Type: BLOOD SPECIMENOrdering Facility: [facility] Address: [address] [address] Performed By: #### 5 8410-2 ####[facility] LABIA [id number] [place] [address] [place] Hematocrit (Bld) [Volume fraction] 31.7 % Low 39.0-51.0 [facility] Comment on above: Order Comment: Speci men Type: BLOOD SPECIMENOrdering Facility: [facility] Address: [address] [place] [address] Performed By: #### 5 8410-2 ####[facility] LABIA [id number] [address] [place] Hemoglobin (Bld) [Mass/Vol] 9.9 g/dL Low 13.0-17.0 [facility] Comment on above: Order Comment: Speci men Type: BLOOD SPECIMENOrdering Facility: [facility] Address: [address] [place] [address] Performed By: #### 5 8410-2 ####[facility] LABIA [id number] [address] [place] MCH (RBC) [Entitic mass] 27.9 pg Normal 26.0-34.0 [facility] Comment on above: Order Comment: Speci men Type: BLOOD SPECIMENOrdering Facility: [facility] Address: [address] [place] [address] Performed By: #### 5 8410-2 ####[facility] LABIA [id number] [address] [place] MCHC (RBC) [Mass/Vol] 31.2 g/dL Normal 30.5-36.0 [facility] Comment on above: Order Comment: Speci men Type: BLOOD SPECIMENOrdering Facility: [facility] Address: [address] [place] [address] Performed By: #### 5 8410-2 ####[facility] LABUNIVERS[facility] [id number] [id number] [address] [place] MCV (RBC) [Entitic vol] 89.3 fL Normal 80.0-100.0 C [facility] Comment on above: Order Comment: Speci men Type: BLOOD SPECIMENOrdering Facility: [facility] Address: [address] [place] [address] Performed By: #### 5 8410-2 ####[facility] LABCLIA [id number] [place] [address] [place] Nucleated RBC (Bld) [#/Vol] 10*3/uL Normal <0.01 [facility] Comment on above: Order Comment: Speci men Type: BLOOD SPECIMENOrdering Facility: [facility] Address: [address] [place], [place] [address] Performed By: #### 5 8410-2 ####[facility] LABIA [id number] [place] [address] [place] Platelet mean volume (Bld) [Entitic vol] 9.5 fL Normal 9.0-12.7 [facility] Comment on above: Order Comment: Speci men Type: BLOOD SPECIMENOrdering Facility: [facility] Address: [address] [place] [address] Performed By: #### 5 8410-2 ####[facility] LABCLIA [id number] [place] [address] [place] Platelets (Bld) [#/Vol] 268 10*3/uL Normal 150-400 [facility] Comment on above: Order Comment: Speci men Type: BLOOD SPECIMENOrdering Facility: [facility] Address: [address] [place] [address] Performed By: #### 5 8410-2 ####[facility] LABCLIA [id number] [place] [address] [place] RBC (Bld) [#/Vol] 3.55 10*6/uL Low 4.20-6.00 [facility] Comment on above: Order Comment: Speci men Type: BLOOD SPECIMENOrdering Facility: [facility] Address: [address] [place] [address] Performed By: #### 5 8410-2 ####[facility] LABIA [id number] [place] [address] [place] WBC (Bld) [#/Vol] 2.90 10*3/uL Low 3.70-11.00 [facility] Comment on above: Order Comment: Speci men Type: BLOOD SPECIMENOrdering Facility: [facility] Address: [address] [place] [address] Performed By: #### 5 8410-2 ####[facility] LABIA [id number] [place] [address] [place] NURSING PROGon 08-08-2022 NURSING PROG Normal [facility] CBC W Auto Differential pane l (Bld)on 08-07-2022 Basophils (Bld) [#/Vol] 0.07 10*3/uL Normal <0.11 [facility] Comment on above: Order Comment: Speci men Type: BLOOD SPECIMENOrdering Facility: [facility] Address: [address] [place] [address] Performed By: #### 5 7021-8 ####[facility] LABIA [id number] [place] [address] [place] Basophils/100 WBC (Bld) 1.4 % Normal C [facility] Comment on above: Order Comment: Speci men Type: BLOOD SPECIMENOrdering Facility: [facility] Address: [address] [place] [address] Performed By: #### 5 7021-8 ####[facility] LABIA [id number] [place] [address] [place] Differential cell count method Nom (Bld) Auto Normal [facility] Comment on above: Order Comment: Speci men Type: BLOOD SPECIMENOrdering Facility: [facility] Address: [address] Performed By: #### 5 7021-8 ####[facility] LABCLIA [id number] [place] [address] [place] Eosinophils (Bld) [#/Vol] 0.15 10*3/uL Normal <0.46 [facility] Comment on above: Order Comment: Speci men Type: BLOOD SPECIMENOrdering Facility: [facility] Address: [address] [address] Performed By: #### 5 7021-8 ####[facility] LABCLIA [id number] [place] [address] [place] Eosinophils/100 WBC (Bld) 3.1 % Normal [facility] Comment on above: Order Comment: Speci men Type: BLOOD SPECIMENOrdering Facility: [facility] Address: [address] [place] [address] Performed By: #### 5 7021-8 ####[facility] LABCLIA [id number] [place] [address] [place] Erythrocyte distribution width (RBC) [Ratio] 13.9 % Normal 11.5-15.0 [facility] Comment on above: Order Comment: Speci men Type: BLOOD SPECIMENOrdering Facility: [facility] Address: [address] [place] [address] Performed By: #### 5 7021-8 ####[facility] LABCLIA [id number] [place] [address] [place] Hematocrit (Bld) [Volume fraction] 34.2 % Low 39.0-51.0 [facility] Comment on above: Order Comment: Speci men Type: BLOOD SPECIMENOrdering Facility: [facility] Address: [address] Performed By: #### 5 7021-8 ####[facility] LABCLIA [id number] [place] [address] [place] Hemoglobin (Bld) [Mass/Vol] 10.6 g/dL Low 13.0-17.0 [facility] Comment on above: Order Comment: Speci men Type: BLOOD SPECIMENOrdering Facility: [facility] Address: [address] [place] [address] Performed By: #### 5 7021-8 ####[facility] LABCLIA [id number] [place] [address] [place] Immature granulocytes (Bld) [#/Vol] 0.03 10*3/uL Normal <0.10 [facility] Comment on above: Order Comment: Speci men Type: BLOOD SPECIMENOrdering Facility: [facility] Address: [address] [place] [address] Performed By: #### 5 7021-8 ####[facility] LABCLIA [id number] [address] [place] Immature granulocytes/100 WBC (Bld) 0.6 % Normal [facility] Comment on above: Order Comment: Speci men Type: BLOOD SPECIMENOrdering Facility: [facility] Address: [address] [place] [address] Performed By: #### 5 7021-8 ####[facility] LABCLIA [id number] [place] [address] [place] Lymphocytes (Bld) [#/Vol] 1.73 10*3/uL Normal 1.00-4.00 [facility] Comment on above: Order Comment: Speci men Type: BLOOD SPECIMENOrdering Facility: [facility] Address: [address] [place] [address] Performed By: #### 5 7021-8 ####[facility] LABCLIA [id number] [place] [address] [place] Lymphocytes/100 WBC (Bld) 35.4 % Normal [facility] Comment on above: Order Comment: Speci men Type: BLOOD SPECIMENOrdering Facility: [facility] Address: [address] [address] Performed By: #### 5 7021-8 ####[facility] [id number] [address] MCH (RBC) [Entitic mass] 28.2 pg Normal 26.0-34.0 [facility] Comment on above: Order Comment: Speci men Type: BLOOD SPECIMENOrdering Facility: [facility] Address: [address] Performed By: #### 5 7021-8 ####[facility] [id number] [address] [place] MCHC (RBC) [Mass/Vol] 31.0 g/dL Normal 30.5-36.0 [facility] Comment on above: Order Comment: Speci men Type: BLOOD SPECIMENOrdering Facility: [facility] Address: [address] Performed By: #### 5 7021-8 ####[facility] [id number] [address] [place] MCV (RBC) [Entitic vol] 91.0 fL Normal 80.0-100.0 C [facility] Comment on above: Order Comment: Speci men Type: BLOOD SPECIMENOrdering Facility: [facility] Address: [address] Performed By: #### 5 7021-8 ####[facility] [id number] [place] [address] [facility] [place] Monocytes (Bld) [#/Vol] 0.57 10*3/uL Normal <0.87 [facility] Comment on above: Order Comment: Speci men Type: BLOOD SPECIMENOrdering Facility: [facility] Address: [address] [place], [place] [address] Performed By: #### 5 7021-8 ####[facility] LABCLIA [id number] [place] [address] [place] Monocytes/100 WBC (Bld) 11.7 % Normal [facility] Comment on above: Order Comment: Speci men Type: BLOOD SPECIMENOrdering Facility: [facility] Address: [address] [place] [address] Performed By: #### 5 7021-8 ####[facility] LABCLIA [id number] [place] [address] [place] Neutrophils (Bld) [#/Vol] 2.34 10*3/uL Normal 1.45-7.50 [facility] Comment on above: Order Comment: Speci men Type: BLOOD SPECIMENOrdering Facility: [facility] Address: [address] [place] [address] Performed By: #### 5 7021-8 ####[facility] LABCLIA [id number] [place] [address] [place] Neutrophils/100 WBC (Bld) 47.8 % Normal [facility] Comment on above: Order Comment: Speci men Type: BLOOD SPECIMENOrdering Facility: [facility] Address: [address] [place], [place] [address] Performed By: #### 5 7021-8 ####[facility] LABCLIA [id number] [place] [address] [place] Nucleated RBC (Bld) [#/Vol] 10*3/uL Normal <0.01 [facility] Comment on above: Order Comment: Speci men Type: BLOOD SPECIMENOrdering Facility: [facility] Address: [address] [place] [address] Performed By: #### 5 7021-8 ####[facility] LABCLIA [id number] [place] [address] [place] Nucleated RBC/100 WBC (Bld) [Ratio] 0.0 /100 WBC Normal [facility] Comment on above: Order Comment: Speci men Type: BLOOD SPECIMENOrdering Facility: [facility] Address: [address] [place], [place] [address] Performed By: #### 5 7021-8 ####[facility] LABCLIA [id number] [place] [address] [place] Platelet mean volume (Bld) [Entitic vol] 9.1 fL Normal 9.0-12.7 [facility] Comment on above: Order Comment: Speci men Type: BLOOD SPECIMENOrdering Facility: [facility] Address: [address] [place], [place] [address] Performed By: #### 5 7021-8 ####[facility] LABCLIA [id number] [place] [address] [place] Platelets (Bld) [#/Vol] 280 10*3/uL Normal 150-400 [facility] Comment on above: Order Comment: Speci men Type: BLOOD SPECIMENOrdering Facility: [facility] Address: [address] [place], [place] [address] Performed By: #### 5 7021-8 ####[facility] LABIA [id number] [place] [address] [place] RBC (Bld) [#/Vol] 3.76 10*6/uL Low 4.20-6.00 [facility] Comment on above: Order Comment: Speci men Type: BLOOD SPECIMENOrdering Facility: [facility] Address: [address] [place] [address] Performed By: #### 5 7021-8 ####[facility] LABCLIA [id number] [place] [address] [place] WBC (Bld) [#/Vol] 4.89 10*3/uL Normal 3.70-11.00 [facility] Comment on above: Order Comment: Speci men Type: BLOOD SPECIMENOrdering Facility: [facility] Address: [address] Performed By: #### 5 7021-8 ####[facility] LABCLIA [id number] [place] [address] [place] CONSULTon 08-07-2022 CONSULT Normal [facility] metabolic 2000 panelon 08-07-2022 Albumin [Mass/Vol] 3.2 g/dL Low 3.9-4.9 [facility] Comment on above: Order Comment: Speci men Type: BLOOD SPECIMENOrdering Facility: [facility] Address: [address] Performed By: #### 2 4323-8 ####[facility] LABCLIA [id number] [place] [address] [place] ALP [Catalytic activity/Vol] 94 U/L Normal 38-113 [facility] Comment on above: Order Comment: Speci men Type: BLOOD SPECIMENOrdering Facility: [facility] Address: [address] Performed By: #### 2 4323-8 ####[facility] LABCLIA [id number] [place] [address] [place] ALT [Catalytic activity/Vol] 12 U/L Normal 10-54 [facility] Comment on above: Order Comment: Speci men Type: BLOOD SPECIMENOrdering Facility: [facility] Address: [address] [place] [address] Performed By: #### 2 4323-8 ####[facility] LABIA [id number] [place] [address] [place] Anion gap [Moles/Vol] 10 mmol/L Normal 9-18 [facility] Comment on above: Order Comment: Speci men Type: BLOOD SPECIMENOrdering Facility: [facility] Address: [address] Performed By: #### 2 4323-8 ####[facility] LABCLIA [id number] [place] [address] [place] AST [Catalytic activity/Vol] 15 U/L Normal 14-40 [facility] Comment on above: Order Comment: Speci men Type: BLOOD SPECIMENOrdering Facility: [facility] Address: [address] [place] [address] Performed By: #### 2 4323-8 ####[facility] LABCLIA [id number] [place] [address] [place] Bilirubin [Mass/Vol] 0.2 mg/dL Normal 0.2-1.3 [facility] Comment on above: Order Comment: Speci men Type: BLOOD SPECIMENOrdering Facility: [facility] Address: [address] [place] [address] Performed By: #### 2 4323-8 ####[facility] LABCLIA [id number] [place] [address] [place] Calcium [Mass/Vol] 9.1 mg/dL Normal 8.5-10.2 [facility] Comment on above: Order Comment: Speci men Type: BLOOD SPECIMENOrdering Facility: [facility] Address: [address] [place], [place] [address] Performed By: #### 2 4323-8 ####[facility] LABCLIA [id number] [place] [address] [place] Chloride [Moles/Vol] 106 mmol/L High 97-105 [facility] Comment on above: Order Comment: Speci men Type: BLOOD SPECIMENOrdering Facility: [facility] Address: [address] [place] [address] Performed By: #### 2 4323-8 ####[facility] LABCLIA [id number] [place] [address] [place] CO2 [Moles/Vol] 24 mmol/L Normal 22-30 [facility] Comment on above: Order Comment: Speci men Type: BLOOD SPECIMENOrdering Facility: [facility] Address: [address] [address] Performed By: #### 2 4323-8 ####[facility] LABIA [id number] [place] [address] [place] Creatinine [Mass/Vol] 0.81 mg/dL Normal 0.73-1.22 [facility] Comment on above: Order Comment: Speci men Type: BLOOD SPECIMENOrdering Facility: [facility] Address: [address] [address] Performed By: #### 2 4323-8 ####[facility] LABIA [id number] [address] [place] ESTIMATED GLOMERULAR FILTRATION RATE 97 mL/min/1.73m??? Normal >=60 [facility] Comment on above: Order Comment: Speci men Type: BLOOD SPECIMENOrdering Facility: [facility] Address: [address] [address] Result Comment: Ignacia mated Glomerular Filtration Rate [...] actual GFR. Performed By: #### 2 4323-8 ####[facility] LABIA [id number] [place] [address] [place] Glucose [Mass/Vol] 100 mg/dL High 74-99 [facility] Comment on above: Order Comment: Speci men Type: BLOOD SPECIMENOrdering Facility: [facility] Address: [address] [place] [address] Result Comment: The [place] [employer] (ADA) provides guidance for cutoff [...] Standards of Medical Care in Diabetes 2016, [place] [employer]. Diabetes Care. 2016.39(Suppl 1). Performed By: #### 2 4323-8 ####[facility] LABCLIA [id number] [place] [address] [place] Potassium [Moles/Vol] 3.7 mmol/L Normal 3.7-5.1 [facility] Comment on above: Order Comment: Speci men Type: BLOOD SPECIMENOrdering Facility: [facility] Address: [address] [place] [address] Performed By: #### 2 432-8 ####[facility] LABIA [id number] [place] [address] [place] Protein [Mass/Vol] 7.0 g/dL Normal 6.3-8.0 [facility] Comment on above: Order Comment: Speci men Type: BLOOD SPECIMENOrdering Facility: [facility] Address: [address] [address] Performed By: #### 2 4323-8 ####[facility] LABIA [id number] [place] [address] [place] Sodium [Moles/Vol] 140 mmol/L Normal 136-144 [facility] Comment on above: Order Comment: Speci men Type: BLOOD SPECIMENOrdering Facility: [facility] Address: [address] [place] [address] Performed By: #### 2 4323-8 ####[facility] LABIA [id number] [place] [address] [place] Urea nitrogen [Mass/Vol] 12 mg/dL Normal 9-24 [facility] Comment on above: Order Comment: Cierra cartwright Type: BLOOD SPECIMENOrdering Facility: [facility] Address: [address] [place] [id number] Performed By: #### 2 4323-8 ####[facility] LABIA [id number] [address] OF [facility] ED PROV NOTEon 08-07-2022 ED PROV NOTE Normal [facility] HISTORY PHYSICALon HISTORY PHYSICAL Normal [facility] PT panel Coag (PPP)on 2022 INR Coag (PPP) [Relative time] 0.9 {INR} Normal 0.9-1.3 [facility] Comment on above: Order Comment: Cierra cartwright Type: BLOOD SPECIMENOrdering Facility: [facility] Address: [address] [place] [address] Result Comment: Kendra min K Antagonist (VKA) Therapeutic Range: INR 2 to 3 (Target INR of 2.5)Note: For patients treated with VKA drugs, such as warfarin, the [place] [employer] 2012 Guideline recommends [...] al. Chest 2012, 141:7S-47SNishimura RA, et al. JACC 2017, 70: 252-289 Performed By: #### 3 4528-0 ####[facility] LABCLIA [id number] [address] OF [place] PT Coag (PPP) [Time] 9.8 s Normal 9.7-13.0 [facility] Comment on above: Order Comment: Speci men Type: BLOOD SPECIMENOrdering Facility: [facility] Address: [address] [place] [address] Performed By: #### 3 4528-0 ####[facility] LABCLIA [id number] [place] [address] [facility] TYPE + SCREENon 08-07-2022 ABO O Normal [facility] Comment on above: Order Comment: Speci men Type: BLOOD SPECIMENOrdering Facility: [facility] Address: [address] [place] [address] Performed By: #### T SCR ####CC [facility]IN BLOOD BANKCLIA [id number] [address] OF [facility] HISTORICAL AB SCR STATUS Negative Normal [facility] Comment on above: Order Comment: Speci men Type: BLOOD SPECIMENOrdering Facility: [facility] Address: [address] [place], [place] [address] Performed By: #### T SCR ####CC [facility] BLOOD BANKCLIA [id number] [place] [address] [place] Rh Nom (Bld) Positive Normal [facility] Comment on above: Order Comment: Speci men Type: BLOOD SPECIMENOrdering Facility: [facility] Address: [address] [place], [place] [address] Performed By: #### T SCR ####CC MAIN BLOOD BANKCLIA [id number] [place] [address] [place] TYPE AND SCREEN EXPIRATION 08/09/2022 23:59 Normal [facility] Comment on above: Order Comment: Speci men Type: BLOOD SPECIMENOrdering Facility: [facility] Address: [address] [place], [place] [address] Performed By: #### T SCR ####CC MAIN BLOOD BANKCLIA [id number] [address] OF [facility] Urinalysis complete panel (U )on 08-07-2022 Bacteria LM.HPF (Urine sed) [#/Area] Rare Abnormal None Seen [facility] Comment on above: Order Comment: Speci men Type: URINE SPECIMENOrdering Facility: [facility] Address: [address] [place] [address] Performed By: #### 2 4356-8 ####[facility] LABCLIA [id number] [address] [place] Bilirubin Ql (U) Negative Normal Negative [facility] Comment on above: Order Comment: Speci men Type: URINE SPECIMENOrdering Facility: [facility] Address: [address] [place] [address] Performed By: #### 2 4356-8 ####[facility] LABCLIA [id number] [address] [place] Clarity (Unsp spec) Cloudy Abnormal Clear [facility] Comment on above: Order Comment: Speci men Type: URINE SPECIMENOrdering Facility: [facility] Address: [address] [place] [address] Performed By: #### 2 4356-8 ####[facility] LABCLIA [id number] [address] [place] Color (U) Light Yellow Normal Yellow [facility] Comment on above: Order Comment: Speci men Type: URINE SPECIMENOrdering Facility: [facility] Address: [address] Performed By: #### 2 4356-8 ####[facility] LABCLIA [id number] [address] [place] Epithelial cells LM.HPF (Urine sed) [#/Area] Few Normal [facility] Comment on above: Order Comment: Speci men Type: URINE SPECIMENOrdering Facility: [facility] Address: [address] [place], [place] [address] Performed By: #### 2 4356-8 ####[facility] LABCLIA [id number] [place] [address] [place] Glucose Test strip (U) [Mass/Vol] Negative Normal Trace, Negative [facility] Comment on above: Order Comment: Speci men Type: URINE SPECIMENOrdering Facility: [facility] Address: [address] [place] [address] Performed By: #### 2 4356-8 ####[facility] LABCLIA [id number] [place] [address] [place] Hemoglobin Ql (U) 3+ Abnormal Negative, Trace [facility] Comment on above: Order Comment: Speci men Type: URINE SPECIMENOrdering Facility: [facility] Address: [address] [place] [address] Performed By: #### 2 4356-8 ####[facility] LABCLIA [id number] [place] [address] [place] Ketones Ql (U) Negative Normal Trace, Negative [facility] Comment on above: Order Comment: Speci men Type: URINE SPECIMENOrdering Facility: [facility] Address: [address] [place] [address] Performed By: #### 2 4356-8 ####[facility] LABCLIA [id number] [place] [address] [place] Leukocyte esterase Test strip Ql (U) 75 Arnulfo/uL Abnormal Negative, 25 Arnulfo/uL [facility] Comment on above: Order Comment: Speci men Type: URINE SPECIMENOrdering Facility: [facility] Address: [address] [place], [place] [address] Performed By: #### 2 4356-8 ####[facility] LABCLIA [id number] [place] [address] [place] Nitrite Ql (U) Negative Normal Negative [facility] Comment on above: Order Comment: Speci men Type: URINE SPECIMENOrdering Facility: [facility] Address: [address] [place] [address] Performed By: #### 2 4356-8 ####[facility] LABIA [id number] [address] STATES [facility] pH (U) 7.0 [pH] Normal 5.0-8.0 [facility] Comment on above: Order Comment: Speci men Type: URINE SPECIMENOrdering Facility: [facility] Address: [address] [place] [address] Performed By: #### 2 4356-8 ####[facility] LABIA [id number] [place] [address] [place] Protein (U) [Mass/Vol] 1+ Abnormal Trace , Negative [facility] Comment on above: Order Comment: Speci men Type: URINE SPECIMENOrdering Facility: [facility] Address: [address] [place] [address] Performed By: #### 2 4356-8 ####[facility] LABIA [id number] [place] [address] [place] RBC LM.HPF (Urine sed) [#/Area] /[HPF] Abnormal 0-3 /HPF [facility] Comment on above: Order Comment: Speci men Type: URINE SPECIMENOrdering Facility: [facility] Address: [address] [place], [place] [address] Performed By: #### 2 4356-8 ####[facility] LABIA [id number] [place] [address] [place] Specific gravity (U) [Rel density] 1.015 Normal 1.005-1.030 [facility] Comment on above: Order Comment: Speci men Type: URINE SPECIMENOrdering Facility: [facility] Address: [address] [place] [address] Performed By: #### 2 4356-8 ####[facility] LABIA [id number] [address] OF [place] Urobilinogen Ql (U) Negative Normal Negative [facility] Comment on above: Order Comment: Speci men Type: URINE SPECIMENOrdering Facility: [facility] Address: [address] [place] [address] Performed By: #### 2 4356-8 ####[facility] LABIA [id number] [address] [place] WBC LM.HPF (Urine sed) [#/Area] 6-10 /HPF Abnormal 0-5 /HPF [facility] Comment on above: Order Comment: Speci men Type: URINE SPECIMENOrdering Facility: [facility] Address: [address] [place] [address] Performed By: #### 2 4356-8 ####[facility] [id number] [address] [place] ED NOTEon 08-06-2022 ED NOTE HNO ID: [id number] Author: Marielena Moss RN Service: ? Author Type: Registered Nurse Type: ED Notes Filed: 08/06/2022 9:59 PM Note Text: Bed: E12-08 Expected date: 08/06/22 Expected time: 9:54 PM Means of arrival: Comments: EMS Normal [facility] BILIRUBIN TOTAL BLDon 2022 Bilirubin [Mass/Vol] 0.2 mg/dL 0.2 - 1 [facility] CBC W Auto Differential pane l (Bld)on 08-02-2022 Hematocrit (Bld) [Volume fraction] 34.1 % Abnormal 42 - 54 % [facility] Hemoglobin (Bld) [Mass/Vol] 10.7 g/dL Abnormal 14 - 18 g/dL [facility] Platelets (Bld) [#/Vol] 379 10*3/uL 150 - 450 K/uL [facility] WBC (Bld) [#/Vol] 4.9 10*3/uL 4.0 - 11.0 K/uL [facility] CREATININEon 08-02-2022 Creatinine [Mass/Vol] 0.92 mg/dL Normal 0.70-1.30 [facility] Comment on above: Performed By: #### R SPLUS #### [facility] [address] [address] [address] Cuba Weber EGFR-AF ANDORRAN >60 Normal >=60 [facility] Comment on above: Performed By: #### R SPLUS #### [facility] [id number] Cuba Weebr EGFR-NON AF ANDORRAN >60 Normal >=60 [facility] Comment on above: Performed By: #### R SPLUS #### [facility] [address] [address] [address] Cuba Weber Comprehensive metabolic 2000 panelon 08-02-2022 ALP [Catalytic activity/Vol] 73 U/L 46 - 116 [facility] ALT [Catalytic activity/Vol] 19 U/L 16 - 63 [facility] AST [Catalytic activity/Vol] 21 U/L 15 - 37 [facility] Creatinine [Mass/Vol] 0.92 mg/dL 0.7 - 1.3 MG/DL [facility] HEMOGRAM AND PLATELon 2022 Hematocrit (Bld) [Volume fraction] 34.1 % Critically low 42.0-54.0 [facility] Comment on above: Performed By: #### H H ####[facility] [id number] [place] [id number]. Cuba Weber Hemoglobin (Bld) [Mass/Vol] 10.7 g/dL Critically low 14.0-18.0 [facility] Comment on above: Performed By: #### H H ####[facility] [address] [place] [id number]. Cuba Weber MCH (RBC) [Entitic mass] 28.3 pg Normal 25.9-34.0 [facility] Comment on above: Performed By: #### H H ####[facility] [id number] [place] [id number]. Cuba Weber MCHC (RBC) [Mass/Vol] 31.4 g/dL Normal 29.9-35.2 [facility] Comment on above: Performed By: #### H H ####[facility] [id number] [place] [id number]. Cuba Weber MCV (RBC) [Entitic vol] 90.2 fL Normal 80.0-94.0 [facility] Comment on above: Performed By: #### H H ####[facility] [address] [place] [id number]. Cuba Weber PLT 379 103/ul Normal 150-450 [facility] Comment on above: Performed By: #### H H ####[facility] [address] [place] [id number]. Cuba Weber RBC 3.78 106/ul Critically low 4.70-6.10 [facility] Comment on above: Performed By: #### H H ####[facility] [address] [place] [id number]. Cuba Weber WBC 4.9 103/ul Normal 4.0-11.0 [facility] Comment on above: Performed By: #### H H ####[facility] [address] [place] [id number]. Cuba Weber LIVER PROFILEon 08-02-2022 Albumin [Mass/Vol] 2.6 g/dL Critically low 3.4-5.0 [facility] Comment on above: Performed By: #### R SPLUS #### [facility] [address] [address] [address] Cuba Weber Albumin/Globulin [Mass ratio] 0.6 {ratio} Normal [facility] Comment on above: Performed By: #### R SPLUS #### [facility] [address] [address] [address] Cuba Weber ALP [Catalytic activity/Vol] 73 U/L Normal 46-116 [facility] Comment on above: Performed By: #### R SPLUS #### [facility] [address] [address] [address] Cuba Weber ALT [Catalytic activity/Vol] 19 U/L Normal 16-63 [facility] Comment on above: Performed By: #### R SPLUS #### [facility] [address] [address] [address] Cuba Weber AST [Catalytic activity/Vol] 21 U/L Normal 15-37 [facility] Comment on above: Performed By: #### R SPLUS #### [facility] [address] [address] [address] Cuba Weber BILI, CONJUGATED 0.1 mg/dL Normal 0.0-0.2 [facility] Comment on above: Performed By: #### R SPLUS #### [facility] [address] [address] [address] Cuba Weber Bilirubin [Mass/Vol] 0.2 mg/dL Normal 0.2-1.0 [facility] Comment on above: Performed By: #### R SPLUS #### [facility] [address] [place] [address] Dr. Cuba Weber Globulin (S) [Mass/Vol] 4.6 g/dL Normal [facility] Comment on above: Performed By: #### R SPLUS #### [facility] [address] [address] [address] Cuba Weber Protein [Mass/Vol] 7.2 g/dL Normal 6.4-8.2 [facility] Comment on above: Performed By: #### R SPLUS #### [facility] [address] [place] [address] Dr. Cuba Weber STOOL CULTUREon 07-24-2022 Campylobacter Culture Final report Normal [facility] Comment on above: Performed By: #### L ACT #### [facility] [address] [address] [address] Cuba Weber E coli Shiga Toxin EIA Negative Normal Negative [facility] Comment on above: Performed By: #### L ACT #### [facility] [address] [place] [address] Dr. Cuba Weber Result 1 Comment Normal [facility] Comment on above: Result Comment: No S almonella or Shigella recovered. Performed By: #### L ACT #### [facility] [address] [address] [address] Cuba Weber Result Comment: No C ampylobacter species isolated. Salmonella/Shigella Screen Final report [facility] Comment on above: Performed By: #### L ACT #### [facility] [address] [place] [address] Dr. Cuba Weber CULTURE BLOODon 07-22-2022 Microscopic [...] F Trimethoprim/Sulfame thoxazole <=20 S F Normal [facility] Comment on above: Performed By: #### C BC #### [facility] [address] [place] [address] Dr. Cuba Weber CULTURE URINEon 07-22-2022 CULTURE [...] F Trimethoprim/Sulfame thoxazole >=320 R F Normal [facility] Comment on above: Performed By: #### C BC #### [facility] [address] [place] [address] Dr. Cuba Weber CBC AUTO DIFFon 07-21-2022 BASO # 0.1 103/ul Normal 0.0-0.1 [facility] Comment on above: Performed By: #### C BC #### [facility] [address] [place] [address] Dr. Cuba Weber Basophils/100 WBC (Bld) 0.3 % Normal 0.2-2.0 [facility] Comment on above: Performed By: #### C BC #### [facility] [address] [place] [address] Dr. Cuba Weber EO # 0.3 103/ul Normal 0.0-0.7 [facility] Comment on above: Performed By: #### C BC #### [facility] [address] [place] [address] Dr. Cuba Weber Eosinophils/100 WBC (Bld) 1.4 % Normal 0.9-7.0 [facility] Comment on above: Performed By: #### C BC #### [facility] [address] [place] [address] Dr. Cuba Weber Erythrocyte distribution width (RBC) [Ratio] 14.9 % Normal 11.0-15.0 [facility] Comment on above: Performed By: #### C BC #### [facility] [address] [place] [address] Dr. Cuba Weber Hematocrit (Bld) [Volume fraction] 30.0 % Critically low 42.0-54.0 [facility] Comment on above: Performed By: #### C BC #### [facility] [address] [place] [address] Dr. Cuba Weber Hemoglobin (Bld) [Mass/Vol] 10.1 g/dL Critically low 14.0-18.0 [facility] Comment on above: Performed By: #### C BC #### [facility] [address] [place] [address] Dr. Cuba Weber IG # 2.09 10e3/ul Critically high 0.00-0.03 [facility] Comment on above: Performed By: #### C BC #### [facility] [address] [address] [address] Cuba Weber IG % 11.5 % Critically high 0.0-0.5 [facility] Comment on above: Performed By: #### C BC #### [facility] [address] [place] [address] Dr. Cuba Weber LYMPH # 0.4 103/ul Critically low 1.2-3.8 [facility] Comment on above: Performed By: #### C BC #### [facility] [address] [place] [address] Dr. Cuba Weber Lymphocytes/100 WBC (Bld) 2.1 % Critically low 20.5-60.0 [facility] Comment on above: Performed By: #### C BC #### [facility] [address] [place] [address] Dr. Cuba Weber MANUAL DIFF REQ NO Normal [facility] Comment on above: Performed By: #### C BC #### [facility] [address] [place] [address] Dr. Cuba Weber MCH (RBC) [Entitic mass] 28.5 pg Normal 25.9-34.0 [facility] Comment on above: Performed By: #### C BC #### [facility] [address] [place] [address] Dr. Cuba Weber MCHC (RBC) [Mass/Vol] 33.7 g/dL Normal 29.9-35.2 [facility] Comment on above: Performed By: #### C BC #### [facility] [address] [place] [address] Dr. Cuba Weber MCV (RBC) [Entitic vol] 84.5 fL Normal 80.0-94.0 [facility] Comment on above: Performed By: #### C BC #### [facility] [address] [place] [address] Dr. Cuba Weber MONO # 0.5 103/ul Normal 0.3-0.8 [facility] Comment on above: Performed By: #### C BC #### [facility] [address] [place] [address] Dr. Cuba Weber Monocytes/100 WBC (Bld) 2.9 % Normal 1.7-12.0 [facility] Comment on above: Performed By: #### C BC #### [facility] [address] [address] [address] Cuba Weber NEUT # 14.9 103/ul Critically high 1.4-6.5 [facility] Comment on above: Performed By: #### C BC #### [facility] [address] [address] [address] Cuba Weber Neutrophils/100 WBC (Bld) 81.8 % Critically high 43.0-75.0 [facility] Comment on above: Performed By: #### C BC #### [facility] [address] [place] [address] Dr. Cuba Weber Platelet mean volume (Bld) [Entitic vol] 11.8 fL Normal 9.5-13.5 [facility] Comment on above: Performed By: #### C BC #### [facility] [address] [place] [address] Dr. Cuba Weber PLT 74 103/ul Critically low 150-450 [facility] Comment on above: Performed By: #### C BC #### [facility] [address] [place] [address] Dr. Cuba Weber RBC 3.55 106/ul Critically low 4.70-6.10 [facility] Comment on above: Performed By: #### C BC #### [facility] [address] [address] [address] Cuba Weber WBC 18.2 103/ul Critically high 4.0-11.0 [facility] Comment on above: Performed By: #### C BC #### [facility] [address] [place] [address] Dr. Cuba Weber MAGNESIUMon 07-21-2022 Magnesium [Mass/Vol] 2.0 mg/dL Normal 1.8-2.4 [facility] Comment on above: Performed By: #### R SPLUS #### [facility] [address] [place] [address] Dr. Cuba Weber PROF 14(COMP METB)on 023 Albumin [Mass/Vol] 2.1 g/dL Critically low 3.4-5.0 [facility] Comment on above: Performed By: #### R SPLUS #### [facility] [address] [address] [address] Cuba Weber Albumin/Globulin [Mass ratio] 0.6 {ratio} Normal [facility] Comment on above: Performed By: #### R SPLUS #### [facility] [address] [address] [address] Cuba Weber ALP [Catalytic activity/Vol] 67 U/L Normal 46-116 [facility] Comment on above: Performed By: #### R SPLUS #### [facility] [address] [address] [address] Cuba Weber ALT [Catalytic activity/Vol] 35 U/L Normal 16-63 [facility] Comment on above: Performed By: #### R SPLUS #### [facility] [address] [address] [address] Cuba Weber Anion gap [Moles/Vol] 16.8 mmol/L Normal [facility] Comment on above: Performed By: #### R SPLUS #### [facility] [address] [address] [address] Cuba Weber AST [Catalytic activity/Vol] 50 U/L Critically high 15-37 [facility] Comment on above: Performed By: #### R SPLUS #### [facility] [address] [address] [address] Cuba Weber Bilirubin [Mass/Vol] 1.0 mg/dL Normal 0.2-1.0 [facility] Comment on above: Performed By: #### R SPLUS #### [facility] [address] [address] [address] Cuba Weber Calcium [Mass/Vol] 8.2 mg/dL Critically low 8.5-10.1 [facility] Comment on above: Performed By: #### R SPLUS #### [facility] [address] [address] [address] Cuba Weber Chloride [Moles/Vol] 102 mmol/L Normal 98-107 [facility] Comment on above: Performed By: #### R SPLUS #### [facility] [address] [address] [address] Cuba Weber CO2 [Moles/Vol] 18.4 mmol/L Critically low 21.0-32.0 [facility] Comment on above: Performed By: #### R SPLUS #### [facility] [address] [address] [address] Cuba Weber Creatinine [Mass/Vol] 1.53 mg/dL Critically high 0.70-1.30 [facility] Comment on above: Performed By: #### R SPLUS #### [facility] [address] [address] [address] Cuba Weber EGFR-AF ANDORRAN 55 mL/min/1.73m2 Critically low >=60 [facility] Comment on above: Performed By: #### R SPLUS #### [facility] [address] [place] [address] Dr. Cuba Weber EGFR-NON AF ANDORRAN 46 mL/min/1.73m2 Critically low >=60 [facility] Comment on above: Performed By: #### R SPLUS #### [facility] [address] [place] [address] Dr. Cuba Weber Globulin (S) [Mass/Vol] 3.7 g/dL Normal [facility] Comment on above: Performed By: #### R SPLUS #### [facility] [address] [place] [address] Dr. Cuba Weber Glucose [Mass/Vol] 107 mg/dL Critically high 74-106 [facility] Comment on above: Performed By: #### R SPLUS #### [facility] [address] [address] [address] Cuba Weber Potassium [Moles/Vol] 4.2 mmol/L Normal 3.5-5.1 [facility] Comment on above: Performed By: #### R SPLUS #### [facility] [address] [place] [address] Dr. Cuba Weber Protein [Mass/Vol] 5.8 g/dL Critically low 6.4-8.2 [facility] Comment on above: Performed By: #### R SPLUS #### [facility] [address] [place] [address] Dr. Cuba Weber Sodium [Moles/Vol] 133 mmol/L Critically low 136-145 [facility] Comment on above: Performed By: #### R SPLUS #### [facility] [address] [place] [address] Dr. Cuba Weber Urea nitrogen [Mass/Vol] 27.0 mg/dL Critically high 7.0-18.0 [facility] Comment on above: Performed By: #### R SPLUS #### [facility] [address] [place] [address] Dr. Cuba Weber Urea nitrogen/Creatinine [Mass ratio] 17.6 mg/mg Normal [facility] Comment on above: Performed By: #### R SPLUS #### [facility] [address] [place] [address] Dr. Cuba Weber C. DIFF PCRon 07-20-2022 C. DIFFICILE PCR Negative Normal NEGATIVE [facility] Comment on above: Performed By: #### L ACT #### [facility] [address] [place] [address] Dr. Cuba Weber CBC W MANUAL DIFFon 07-21-19 23 ANISOCYTOSIS 1+ Normal [facility] Comment on above: Performed By: #### C BCMAN #### [facility] [address] [place] [address] Dr. Cuba Weber ATYPICAL LYMPH # Normal [facility] Comment on above: Performed By: #### C BCMAN #### [facility] [address] [place] [address] Dr. Cuba Weber ATYPICAL LYMPH % Normal [facility] Comment on above: Performed By: #### C BCMAN #### [facility] [address] [place] [address] Dr. Cuba Weber BAND # 0.7 103/ul Critically high 0.0-0.3 [facility] Comment on above: Performed By: #### C BCMAN #### [facility] [address] [address] [address] Cuba Weber BAND % 11 % Critically high 0-5 [facility] Comment on above: Performed By: #### C BCMAN #### [facility] [address] [place] [address] Dr. Cuba Weber BASOM # 0.00 103/ul Normal 0.00-0.10 [facility] Comment on above: Performed By: #### C BCTERE #### [facility] [address] [place] [address] Dr. Cuba Weber BASOM % 0.0 % Critically low 0.2-2.0 [facility] Comment on above: Performed By: #### C BCTERE #### [facility] [address] [place] [address] Dr. Cuba Weber BLAST # Normal [facility] Comment on above: Performed By: #### C BCTREE #### [facility] [address] [place] [address] Dr. Cuba Weber BLAST % Normal [facility] Comment on above: Performed By: #### C BCTERE #### [facility] [address] [place] [address] Dr. Cuba Weber CORRECTED WBC Normal 4.0-11.0 [facility] Comment on above: Performed By: #### C BCTERE #### [facility] [address] [place] [address] Dr. Cuba Weber EOS # 0.06 103/ul Normal 0.00-0.70 [facility] Comment on above: Performed By: #### C BCTERE #### [facility] [address] [place] [address] Dr. Cuba Weber EOS% 1.0 % Normal 0.9-7.0 [facility] Comment on above: Performed By: #### C BCTERE #### [facility] [address] [place] [address] Dr. Cuba Weber HCT 34.7 % Critically low 42.0-54.0 [facility] Comment on above: Performed By: #### C BCMAN #### [facility] [address] [address] [address] Cuba Weber HGB 11.7 g/dl Critically low 14.0-18.0 [facility] Comment on above: Performed By: #### C BCMAN #### [facility] [address] [address] [address] Cuba Weber LYMPHM # 0.48 103/ul Critically low 1.20-3.80 [facility] Comment on above: Performed By: #### C BCTERE #### [facility] [address] [address] [address] Cuba Weber LYMPHM% 8.0 % Critically low 20.5-60.0 [facility] Comment on above: Performed By: #### C BCTERE #### [facility] [address] [place] [address] Dr. Cuba Weber MCH 28.4 pg Normal 25.9-34.0 [facility] Comment on above: Performed By: #### C BCTERE #### [facility] [address] [place] [address] Dr. Cuba Weber MCHC 33.7 g/dl Normal 29.9-35.2 [facility] Comment on above: Performed By: #### C BCTERE #### [facility] [address] [place] [address] Dr. Cuba Weber MCV 84.2 fL Normal 80.0-94.0 [facility] Comment on above: Performed By: #### C BCTERE #### [facility] [address] [place] [address] Dr. Cuba Weber METAMYELOCYTE # Normal [facility] Comment on above: Performed By: #### C BCTERE #### [facility] [address] [place] [address] Dr. Cuba Weber METAMYELOCYTE % Normal [facility] Comment on above: Performed By: #### C BCTERE #### [facility] [address] [address] [address] Cuba Weber MONOM# 0.18 103/ul Critically low 0.30-0.80 [facility] Comment on above: Performed By: #### C YAHIR #### [facility] [address] [place] [address] Dr. Cuba Weber MONOM% 3.0 % Normal 1.7-12.0 [facility] Comment on above: Performed By: #### C YAHIR #### [facility] [address] [address] [address] Cuba Weber MPV 10.6 fL Normal 9.5-13.5 [facility] Comment on above: Performed By: #### C YAHIR #### [facility] [address] [place] [address] Dr. Cuba Weber MYELOCYTE # Normal [facility] Comment on above: Performed By: #### C YAHIR #### [facility] [address] [place] [address] Dr. Cuba Weber MYELOCYTE % Normal [facility] Comment on above: Performed By: #### C YAHIR #### [facility] [address] [place] [address] Dr. Cuba Weber NRBC Normal [facility] Comment on above: Performed By: #### C YAHIR #### [facility] [address] [place] [address] Dr. Cuba Weber PLT 80 103/ul Critically low 150-450 [facility] Comment on above: Performed By: #### C YAHIR #### [facility] [address] [place] [address] Dr. Cuba Weber RBC 4.12 106/ul Critically low 4.70-6.[address] [facility] Comment on above: Performed By: #### C YAHIR #### [facility] [address] [place] [address] Dr. Cuba Weber RDW 14.9 % Normal 11.0-15.0 [facility] Comment on above: Performed By: #### C YAHIR #### [facility] [address] [place] [address] Dr. Cuba Weber SEG # 4.62 103/ul Normal 1.40-6.50 The [facility] Comment on above: Performed By: #### C BCMAN #### [facility] [address] [place] [address] Dr. Cuba Weber SEG % 77.0 % Critically high 43.0-75.[address] [facility] Comment on above: Performed By: #### C BCMAN #### [facility] [address] [address] [address] Cuba Weber WBC 6.0 103/ul Normal 4.0-11.0 The [facility] Comment on above: Performed By: #### C BCMAN #### [facility] [address] [place] [address] Dr. Cuba Weber ATYPICAL LYMPH # Normal [facility] Comment on above: Performed By: #### L ACT #### [facility] [address] [place] [address] Dr. Cuba Weber ATYPICAL LYMPH % Normal [facility] Comment on above: Performed By: #### L ACT #### [facility] [address] [place] [address] Dr. Cuba Weber BAND # 1.9 103/ul Critically high 0.0-0.[address] [facility] Comment on above: Performed By: #### L ACT #### [facility] [address] [place] [address] Dr. Cuba Weber BAND % 10 % Critically high 0-[address] [facility] Comment on above: Performed By: #### L ACT #### [facility] [address] [place] [address] Dr. Cuba Weber BASOM # 0.00 103/ul Normal 0.00-0.10 The [facility] Comment on above: Performed By: #### L ACT #### [facility] [address] [place] [address] Dr. Cuba Weber BASOM % 0.0 % Critically low 0.2-2.0 [facility] Comment on above: Performed By: #### L ACT #### [facility] [address] [address] [address] Cuba Weber BLAST # Normal [facility] Comment on above: Performed By: #### L ACT #### [facility] [address] [place] [address] Dr. Cuba Weber BLAST % Normal [facility] Comment on above: Performed By: #### L ACT #### [facility] [address] [place] [address] Dr. Cuba Weber CORRECTED WBC Normal 4.0-11.0 [facility] Comment on above: Performed By: #### L ACT #### [facility] [address] [place] [address] Dr. Cuba Weber EOS # 0.00 103/ul Normal 0.00-0.70 [facility] Comment on above: Performed By: #### L ACT #### [facility] [address] [place] [address] Dr. Cuba Weber EOS% 0.0 % Critically low 0.9-7.0 [facility] Comment on above: Performed By: #### L ACT #### [facility] [address] [place] [address] Dr. Cuba Weber HCT 31.9 % Critically low 42.0-54.0 [facility] Comment on above: Performed By: #### L ACT #### [facility] [address] [place] [address] Dr. Cuba Weber HGB 10.6 g/dl Critically low 14.0-18.0 [facility] Comment on above: Performed By: #### L ACT #### [facility] [address] [place] [address] Dr. Cuba Weber LYMPHM # 1.15 103/ul Critically low 1.20-3.[address] [facility] Comment on above: Performed By: #### L ACT #### [facility] [address] [place] [address] Dr. Cuba Weber LYMPHM% 6.0 % Critically low 20.5-60.0 [facility] Comment on above: Performed By: #### L ACT #### [facility] [address] [address] [address] Cuba Weber MCH 28.5 pg Normal 25.9-34.0 [facility] Comment on above: Performed By: #### L ACT #### [facility] [address] [place] [address] Dr. Cuba Weber MCHC 33.2 g/dl Normal 29.9-35.2 The [facility] Comment on above: Performed By: #### L ACT #### [facility] [address] [address] [address] Cuba Weber MCV 85.8 fL Normal 80.0-94.0 [facility] Comment on above: Performed By: #### L ACT #### [facility] [address] [place] [address] Dr. Cuba Weber METAMYELOCYTE # Normal [facility] Comment on above: Performed By: #### L ACT #### [facility] [address] [place] [address] Dr. Cuba Weber METAMYELOCYTE % Normal [facility] Comment on above: Performed By: #### L ACT #### [facility] [address] [place] [address] Dr. Cuba Weber MONOM# 0.00 103/ul Critically low 0.30-0.80 [facility] Comment on above: Performed By: #### L ACT #### [facility] [address] [place] [address] Dr. Cuba Weber MONOM% 0.0 % Critically low 1.7-12.0 [facility] Comment on above: Performed By: #### L ACT #### [facility] [address] [place] [address] Dr. Cuba Weber MPV 10.7 fL Normal 9.5-13.5 The [facility] Comment on above: Performed By: #### L ACT #### [facility] [address] [place] [address] Dr. Cuba Weber MYELOCYTE # Normal The [facility] Comment on above: Performed By: #### L ACT #### [facility] [address] [address] [address] Cuba Weber MYELOCYTE % Normal [facility] Comment on above: Performed By: #### L ACT #### [facility] [address] [address] [address] Cuba Weber NRBC Normal [facility] Comment on above: Performed By: #### L ACT #### [facility] [address] [address] [address] Cuba Weber PLT 93 103/ul Critically low 150-450 [facility] Comment on above: Performed By: #### L ACT #### [facility] [address] [address] [address] Cuba Weber RBC 3.72 106/ul Critically low 4.70-6.10 [facility] Comment on above: Performed By: #### L ACT #### [facility] [address] [place] [address] Dr. Cuba Weber RDW 14.7 % Normal 11.0-15.0 [facility] Comment on above: Performed By: #### L ACT #### [facility] [address] [address] [address] Cuba Weber SEG # 16.13 103/ul Critically high 1.40-6.50 [facility] Comment on above: Performed By: #### L ACT #### [facility] [address] [address] [address] Cuba Weber SEG % 84.0 % Critically high 43.0-75.[address] [facility] Comment on above: Performed By: #### L ACT #### [facility] [address] [address] [address] Cuba Weber WBC 19.2 103/ul Critically high 4.0-11.0 [facility] Comment on above: Performed By: #### L ACT #### [facility] [address] [place] [address] ABD/PELVIS WO CONon [...] [Mass/Vol] 1.5 mg/dL Critically low 1.8-2.4 The [facility] Comment on above: Performed By: #### L ACT #### [facility] [address] [place] [address] Dr. Cuba Weber Magnesium [Mass/Vol] 1.3 mg/dL Critically low 1.8-2.4 [facility] Comment on above: Performed By: #### M G, CMP ####[facility] [id number] [address] Cuba Weber PROF 14(COMP METB)on 023 Albumin [Mass/Vol] 2.7 g/dL Critically low 3.4-5.0 [facility] Comment on above: Performed By: #### L ACT #### [facility] [address] [address] [address] Cuba Weber Albumin/Globulin [Mass ratio] 0.7 {ratio} Normal [facility] Comment on above: Performed By: #### L ACT #### [facility] [address] [address] [address] Cuba Weber ALP [Catalytic activity/Vol] 89 U/L Normal 46-116 [facility] Comment on above: Performed By: #### L ACT #### [facility] [address] [address] [address] Cuba Weber ALT [Catalytic activity/Vol] 42 U/L Normal 16-63 [facility] Comment on above: Performed By: #### L ACT #### [facility] [address] [address] [address] Cuba Weber Anion gap [Moles/Vol] 19.1 mmol/L Normal [facility] Comment on above: Performed By: #### L ACT #### [facility] [address] [address] [address] Cuba Weber AST [Catalytic activity/Vol] 60 U/L Critically high 15-37 [facility] Comment on above: Performed By: #### L ACT #### [facility] [id number] Cuba Weber Bilirubin [Mass/Vol] 1.9 mg/dL Critically high 0.2-1.0 [facility] Comment on above: Performed By: #### L ACT #### [facility] [id number] Cuba Weber Calcium [Mass/Vol] 8.2 mg/dL Critically low 8.5-10.1 [facility] Comment on above: Performed By: #### L ACT #### [facility] [address] [address] [address] Cuba Weber Chloride [Moles/Vol] 102 mmol/L Normal 98-107 [facility] Comment on above: Performed By: #### L ACT #### [facility] [address] [address] [address] Cuba Weber CO2 [Moles/Vol] 20.2 mmol/L Critically low 21.0-32.0 [facility] Comment on above: Performed By: #### L ACT #### [facility] [address] [address] [address] Cuba Weber Creatinine [Mass/Vol] 2.29 mg/dL Critically high 0.70-1.30 [facility] Comment on above: Performed By: #### L ACT #### [facility] [address] [place] [address] Dr. Cuba Weber EGFR-AF ANDORRAN 35 mL/min/1.73m2 Critically low >=60 [facility] Comment on above: Performed By: #### L ACT #### [facility] [address] [place] [address] Dr. Cuba Weber EGFR-NON AF ANDORRAN 29 mL/min/1.73m2 Critically low >=60 [facility] Comment on above: Performed By: #### L ACT #### [facility] [address] [place] [address] Dr. Cuba Weber Globulin (S) [Mass/Vol] 3.9 g/dL Normal [facility] Comment on above: Performed By: #### L ACT #### [facility] [address] [address] [address] Cuba Weber Glucose [Mass/Vol] 78 mg/dL Normal 74-106 [facility] Comment on above: Performed By: #### L ACT #### [facility] [address] [address] [address] Cuba Weber Potassium [Moles/Vol] 4.3 mmol/L Normal 3.5-5.1 [facility] Comment on above: Performed By: #### L ACT #### [facility] [address] [address] [address] Cuba Weber Protein [Mass/Vol] 6.6 g/dL Normal 6.4-8.2 [facility] Comment on above: Performed By: #### L ACT #### [facility] [address] [address] [address] Cuba Weber Sodium [Moles/Vol] 137 mmol/L Normal 136-145 [facility] Comment on above: Performed By: #### L ACT #### [facility] [address] [address] [address] Cuba Weber Urea nitrogen [Mass/Vol] 30.0 mg/dL Critically high 7.0-18.0 [facility] Comment on above: Performed By: #### L ACT #### [facility] [address] [address] [address] Cuba Weber Urea nitrogen/Creatinine [Mass ratio] 13.1 mg/mg Normal [facility] Comment on above: Performed By: #### L ACT #### [facility] [address] [address] [address] Cuba Weber Albumin [Mass/Vol] 2.4 g/dL Critically low 3.4-5.0 [facility] Comment on above: Performed By: #### M G, CMP ####[facility] [id number] [id number] Cuba Weber Albumin/Globulin [Mass ratio] 0.7 {ratio} Normal [facility] Comment on above: Performed By: #### M G, CMP ####[facility] [id number] [id number] Cuba Weber ALP [Catalytic activity/Vol] 65 U/L Normal 46-116 [facility] Comment on above: Performed By: #### M G, CMP ####[facility] [id number] [id number] Weber ALT [Catalytic activity/Vol] 33 U/L Normal 16-63 [facility] Comment on above: Performed By: #### M G, CMP ####[facility] [id number] [address] Cuba Weber Anion gap [Moles/Vol] 14.1 mmol/L Normal [facility] Comment on above: Performed By: #### M G, CMP ####[facility] [id number] [place], [place] [address]Dr. Cuba Weber AST [Catalytic activity/Vol] 42 U/L Critically high 15-37 [facility] Comment on above: Performed By: #### M G, CMP ####[facility] [id number] [place], [place] [address]Dr. Cuba Weber Bilirubin [Mass/Vol] 1.5 mg/dL Critically high 0.2-1.0 [facility] Comment on above: Performed By: #### M G, CMP ####[facility] [address] [place], [place] [address]Dr. Cuba Weber Calcium [Mass/Vol] 7.8 mg/dL Critically low 8.5-10.1 [facility] Comment on above: Performed By: #### M G, CMP ####[facility] [id number] [place], [place] [address]Dr. Cuba Weber Chloride [Moles/Vol] 104 mmol/L Normal 98-107 [facility] Comment on above: Performed By: #### M G, CMP ####[facility] [id number] [place], [place] [address]Dr. Cuba Weber CO2 [Moles/Vol] 20.8 mmol/L Critically low 21.0-32.0 [facility] Comment on above: Performed By: #### M G, CMP ####[facility] [address] [place], [place] [address]Dr. Cuba Weber Creatinine [Mass/Vol] 2.41 mg/dL Critically high 0.70-1.30 [facility] Comment on above: Performed By: #### M G, CMP ####[facility] [address] [place], [place] [address]Dr. Cuba Weber EGFR-AF ANDORRAN 33 mL/min/1.73m2 Critically low >=60 [facility] Comment on above: Performed By: #### M Charla, CMP ####[facility] [id number] [place], [place] [address]Dr. Sharynshasta Gus EGFR-NON AF ANDORRAN 27 mL/min/1.73m2 Critically low >=60 [facility] Comment on above: Performed By: #### Wendy Dunham, CMP ####[facility] [id number] [place], [place] [address]Dr. Cuba Weber Globulin (S) [Mass/Vol] 3.5 g/dL Normal [facility] Comment on above: Performed By: #### Wendy Dunham, CMP ####[facility] [id number] [place], [place] [address]Dr. Cuba Weber Glucose [Mass/Vol] 85 mg/dL Normal 74-106 [facility] Comment on above: Performed By: #### Wendy Dunham, CMP ####[facility] [id number] [place], [place] [address]Dr. Cuba Weber Potassium [Moles/Vol] 3.9 mmol/L Normal 3.5-5.1 [facility] Comment on above: Performed By: #### Wendy Dunham, CMP ####[facility] [id number] [place], [place] [address]Dr. Cuba Weber Protein [Mass/Vol] 5.9 g/dL Critically low 6.4-8.2 [facility] Comment on above: Performed By: #### Wendy Dunham, CMP ####[facility] [id number] [place], [place] [address]Dr. Cuba Weber Sodium [Moles/Vol] 135 mmol/L Critically low 136-145 [facility] Comment on above: Performed By: #### Wendy Dunham, CMP ####[facility] [id number] [place], [place] [address]Dr. Cuba Weber Urea nitrogen [Mass/Vol] 36.0 mg/dL Critically high 7.0-18.0 [facility] Comment on above: Performed By: #### Wendy Dunham, CMP ####[facility] [id number] [address]Dr. Cuba Weber Urea nitrogen/Creatinine [Mass ratio] 14.9 mg/mg Normal [facility] Comment on above: Performed By: #### M G, CMP ####[facility] [id number] [address]Dr. Cuba Weber UA RANDOMon 07-20-2022 Bilirubin Ql (U) Negative Normal NEGATIVE [facility] Comment on above: Performed By: #### R SPLUS #### [facility] Laboratory [address] [place] [address] Dr. Cuba Weber Clarity (U) CLEAR Normal CLEAR [facility] Comment on above: Performed By: #### R SPLUS #### [facility] [address] [place] [address] Dr. Cuba Weber Color (U) YELLOW Normal YELLOW [facility] Comment on above: Performed By: #### R SPLUS #### [facility] [address] [place] [address] Dr. Cuba Weber Glucose Ql (U) Negative Normal NEGATIVE [facility] Comment on above: Performed By: #### R SPLUS #### [facility] [address] [place] [address] Dr. Cuba Weber Hemoglobin Ql (U) LARGE Abnormal NEGATIVE [facility] Comment on above: Performed By: #### R SPLUS #### [facility] [address] [place] [address] Dr. Cuba Weber Ketones Ql (U) Negative Normal NEGATIVE [facility] Comment on above: Performed By: #### R SPLUS #### [facility] [address] [place] [address] Dr. Cuba Weber LEUKOCYTES LARGE Abnormal NEGATIVE [facility] Comment on above: Performed By: #### R SPLUS #### [facility] [address] [place] [address] Dr. Cuba Weber Nitrite Ql (U) Negative Normal NEGATIVE [facility] Comment on above: Performed By: #### R SPLUS #### [facility] [address] [place] [address] Dr. Cuba Weber pH (U) 6.5 [pH] Normal 5-9 The [facility] Comment on above: Performed By: #### R SPLUS #### [facility] [address] [place] [address] Dr. Cuba Weber SPEC GRAVITY <=1.005 Abnormal 1.005-<=1.02 5 [facility] Comment on above: Performed By: #### R SPLUS #### [facility] [address] [place] [address] Dr. Cuba Weber UA PROTEIN 100 mg/dl Abnormal NEGATIVE/ TRACE The [facility] Comment on above: Performed By: #### R SPLUS #### [facility] [address] [place] [address] Dr. Cuba Weber Urobilinogen Qn (U) 1.0 {Kalina'U}/dL Normal 0.2 - 1. 0 [facility] Comment on above: Performed By: #### R SPLUS #### [facility] [address] [place] [address] Dr. Cuba Weber BLOOD CULTURE ID PANELon A. baumannii Not detected Normal NOT DETECTED [facility] Comment on above: Performed By: #### L ACT #### [facility] [address] [place] [address] Dr. Cuba Weber Bacteriodes fragilis Not detected Normal NOT DETECTED The [facility] Comment on above: Performed By: #### L ACT #### [facility] [address] [place] [address] Dr. Cuba TOBARD CONTROLS PASSED Normal [facility] Comment on above: Performed By: #### L ACT #### [facility] [address] [place] [address] Dr. Cuba TOBARDBTHD BLOOD CULTURE BOTTLE INFORMATION Normal The [facility] Comment on above: Performed By: #### L ACT #### [facility] [address] [place] [address] Dr. Cuba Weber BCIDHD1 ANTIMICROBIAL RESISTANCE GENES [facility] Comment on above: Performed By: #### L ACT #### [facility] [address] [place] [address] Dr. Cuba Weber BCIDHD2 SEE BELOW [facility] Comment on above: Result Comment: Note : Antimicrobial resitance can occur via multiple mechanisms. A Not Detected result for the [employer] antomicrobial resistance gene assays does not indicate antimicrobial susceptibility. Subculturing is required for species identification and susceptibility testing of isolates. Performed By: #### L ACT #### [facility] [address] [place] [address] Dr. Cuba Weber BCIDHD3 Positive Normal [facility] Comment on above: Performed By: #### L ACT #### [facility] [address] [place] [address] Dr. Cuba Weber BCIDHD4 Negative Normal [facility] Comment on above: Performed By: #### L ACT #### [facility] [address] [place] [address] Dr. Cuba Weber BCIDHD5 YEAST Normal [facility] Comment on above: Performed By: #### L ACT #### [facility] [address] [place] [address] Dr. Cuba Weber Bottle Set: Set 1 Normal [facility] Comment on above: Performed By: #### L ACT #### [facility] [address] [place] [address] Dr. Cuba Weber Bottle: Aerobic Normal [facility] Comment on above: Performed By: #### L ACT #### [facility] [address] [place] [address] Dr. Cuba Weber C. neoformans/gattii Not detected Normal NOT DETECTED The [facility] Comment on above: Performed By: #### L ACT #### [facility] [address] [place] [address] Dr. Cuba Weber Marleny albicans Not detected Normal NOT DETECTED The [facility] Comment on above: Performed By: #### L ACT #### [facility] [address] [place] [address] Dr. Cuba Weber Marleny auris Not detected Normal NOT DETECTED [facility] Comment on above: Performed By: #### L ACT #### [facility] [address] [place] [address] Dr. Cuba Weber Marleny glabrata Not detected Normal NOT DETECTED The [facility] Comment on above: Performed By: #### L ACT #### [facility] [address] [place] [address] Dr. Cuba Weber Marleny Krusei Not detected Normal NOT DETECTED [facility] Comment on above: Performed By: #### L ACT #### [facility] [address] [address] [address] Cuba Weber Marleny Parapsilosis Not detected Normal NOT DETECTED The [facility] Comment on above: Performed By: #### L ACT #### [facility] [address] [place] [address] Dr. Cuba Weber Marleny Tropicalis Not detected Normal NOT DETECTED [facility] Comment on above: Performed By: #### L ACT #### [facility] [address] [place] [address] Dr. Cuba Weber CTX-M Resistant Gene Detected Abnormal NOT DETECTED [facility] Comment on above: Performed By: #### L ACT #### [facility] [address] [place] [address] Dr. Cuba Weber E. Cloacae complex Not detected Normal NOT DETECTED [facility] Comment on above: Performed By: #### L ACT #### [facility] [address] [place] [address] Dr. Cuba Weber E. faecalis Not detected Normal NOT DETECTED [facility] Comment on above: Performed By: #### L ACT #### [facility] [address] [place] [address] Dr. Cuba Weber E. faecium Not detected Normal NOT DETECTED [facility] Comment on above: Performed By: #### L ACT #### [facility] [address] [address] [address] Cuba Weber Enterobacteriaceae Detected Critically abnormal NOT DETECTED The [facility] Comment on above: Performed By: #### L ACT #### [facility] [address] [place] [address] Dr. Cuba Weber Escherichia coli Not detected Normal NOT DETECTED The [facility] Comment on above: Performed By: #### L ACT #### [facility] [address] [address] [address] Cuba Weber H. influenzae Not detected Normal NOT DETECTED [facility] Comment on above: Performed By: #### L ACT #### [facility] [address] [address] [address] Cuba Weber IMP Resistant Gene Not detected Normal NOT DETECTED [facility] Comment on above: Performed By: #### L ACT #### [facility] [address] [place] [address] Dr. Cuba Weber K. oxytoca Not detected Normal NOT DETECTED [facility] Comment on above: Performed By: #### L ACT #### [facility] [address] [place] [address] Dr. Cuba Weber K. pneumoniae Detected Critically abnormal NOT DETECTED The [facility] Comment on above: Performed By: #### L ACT #### [facility] [address] [place] [address] Dr. Cuba Weber Klebsiella aerogenes Not detected Normal NOT DETECTED The [facility] Comment on above: Performed By: #### L ACT #### [facility] [address] [place] [address] Dr. Cuba Weber KPC Resistant Gene Not detected Normal NOT DETECTED [facility] Comment on above: Performed By: #### L ACT #### [facility] [address] [place] [address] Dr. Cuba Weber List. monocytogenes Not detected Normal NOT DETECTED [facility] Comment on above: Performed By: #### L ACT #### [facility] [address] [place] [address] Dr. Cuba Weber Mcr-1 Resistant Gene Not detected Normal NOT DETECTED The [facility] Comment on above: Performed By: #### L ACT #### [facility] [address] [place] [address] Dr. Cuba Weber mecA/C Not Applicable Normal NOT DETECTED [facility] Comment on above: Performed By: #### L ACT #### [facility] [address] [place] [address] Dr. Cuba Weber mecA/C MREJ Not Applicable Normal NOT DETECTED [facility] Comment on above: Performed By: #### L ACT #### [facility] [address] [address] [address] Cuba Weber N. meningitidis Not detected Normal NOT DETECTED [facility] Comment on above: Performed By: #### L ACT #### [facility] [address] [address] [address] Cuba Weber NDM Resistant Gene Not detected Normal NOT DETECTED [facility] Comment on above: Performed By: #### L ACT #### [facility] [address] [address] [address] Cuba Weber Oxa-48-like Not detected Normal NOT DETECTED [facility] Comment on above: Performed By: #### L ACT #### [facility] [address] [address] [address] Cuba Wbeer Proteus Not detected Normal NOT DETECTED [facility] Comment on above: Performed By: #### L ACT #### [facility] [address] [address] [address] Cuba Weber Pseud. aeruginosa Not detected Normal NOT DETECTED The [facility] Comment on above: Performed By: #### L ACT #### [facility] [address] [place] [address] Dr. Cuba Weber S. maltophilia Not detected Normal NOT DETECTED [facility] Comment on above: Performed By: #### L ACT #### [facility] [address] [address] [address] Cuba Weber Salmonella Not detected Normal NOT DETECTED [facility] Comment on above: Performed By: #### L ACT #### [facility] [address] [address] [address] Cuba Weber Seratia marcescens Not detected Normal NOT DETECTED [facility] Comment on above: Performed By: #### L ACT #### [facility] [address] [place] [address] Dr. Cuba Weber Site: Rt Ac Normal The [facility] Comment on above: Performed By: #### L ACT #### [facility] [address] [address] [address] Cuba Weber Staph. aureus Not detected Normal NOT DETECTED [facility] Comment on above: Performed By: #### L ACT #### [facility] [address] [place] [address] Dr. Cuba Weber Staph. epidermidis Not detected Normal NOT DETECTED [facility] Comment on above: Performed By: #### L ACT #### [facility] [address] [place] [address] Dr. Cuba Weber Staph. lugdunensis Not detected Normal NOT DETECTED [facility] Comment on above: Performed By: #### L ACT #### [facility] [address] [place] [address] Dr. Cuba Weber Staphylococcus Not detected Normal NOT DETECTED [facility] Comment on above: Performed By: #### L ACT #### [facility] [address] [place] [address] Dr. Cuba Weber Strep. agalactiae Not detected Normal NOT DETECTED The [facility] Comment on above: Performed By: #### L ACT #### [facility] [address] [place] [address] Dr. Cuba Weber Strep. pneumoniae Not detected Normal NOT DETECTED The [facility] Comment on above: Performed By: #### L ACT #### [facility] [address] [place] [address] Dr. Cuba Weber Strep. pyogenes Not detected Normal NOT DETECTED [facility] Comment on above: Performed By: #### L ACT #### [facility] [address] [place] [address] Dr. Cuba Weber Streptococcus Not detected Normal NOT DETECTED [facility] Comment on above: Performed By: #### L ACT #### [facility] [address] [place] [address] Dr. Cuba Weber Wilbert/B Resist. Gene Not Applicable Normal NOT DETECTED The [facility] Comment on above: Performed By: #### L ACT #### [facility] [address] [place] [address] Dr. Cuba Weber VIM Resistant Gene Not detected Normal NOT DETECTED [facility] Comment on above: Performed By: #### L ACT #### [facility] [address] [address] [address] Cuba Weber CBC W MANUAL DIFFon 07-20-19 23 ANISOCYTOSIS 1+ Normal [facility] Comment on above: Performed By: #### C YAHIR #### [facility] [address] [place] [address] Dr. Cuba Weber ATYPICAL LYMPH # Normal [facility] Comment on above: Performed By: #### C PETEYMAN #### [facility] [address] [place] [address] Dr. Cuba Weber ATYPICAL LYMPH % Normal [facility] Comment on above: Performed By: #### C PETEYMAN #### [facility] [address] [address] [address] Cuba Weber BAND # 0.1 103/ul Normal 0.0-0.3 [facility] Comment on above: Performed By: #### C YAHIR #### [facility] [address] [place] [address] Dr. Cuba Weber BAND % 1 % Normal 0-5 [facility] Comment on above: Performed By: #### C YAHIR #### [facility] [address] [place] [address] Dr. Cuba Weber BASOM # 0.00 103/ul Normal 0.00-0.10 [facility] Comment on above: Performed By: #### C YAHIR #### [facility] [address] [place] [address] Dr. Cuba Weber BASOM % 0.0 % Critically low 0.2-2.0 [facility] Comment on above: Performed By: #### C YAHIR #### [facility] [address] [place] [address] Dr. Cuba Weber BLAST # Normal [facility] Comment on above: Performed By: #### C YAHIR #### [facility] [address] [place] [address] Dr. Cuba Weber BLAST % Normal The [facility] Comment on above: Performed By: #### C YAHIR #### [facility] [address] [address] [address] Cuba Weber CORRECTED WBC Normal 4.0-11.0 [facility] Comment on above: Performed By: #### C YAHIR #### [facility] [address] [address] [address] Cuba Weber EOS # 0.00 103/ul Normal 0.00-0.70 [facility] Comment on above: Performed By: #### C YAHIR #### [facility] [address] [address] [address] Cuba Weber EOS% 0.0 % Critically low 0.9-7.0 [facility] Comment on above: Performed By: #### C YAHIR #### [facility] [address] [place] [address] Dr. Cuba Weber HCT 39.0 % Critically low 42.0-54.0 [facility] Comment on above: Performed By: #### C YAHIR #### [facility] [address] [place] [address] Dr. Cuba Weber HGB 13.2 g/dl Critically low 14.0-18.0 [facility] Comment on above: Performed By: #### C YAHIR #### [facility] [address] [place] [address] Dr. Cuba Weber LYMPHM # 0.67 103/ul Critically low 1.20-3.[address] [facility] Comment on above: Performed By: #### C YAHIR #### [facility] [address] [address] [address] Cuba Weber LYMPHM% 7.0 % Critically low 20.5-60.0 [facility] Comment on above: Performed By: #### C YAHIR #### [facility] [address] [place] [address] Dr. Cuba Weber MCH 28.6 pg Normal 25.9-34.0 [facility] Comment on above: Performed By: #### C YAHIR #### [facility] [address] [place] [address] Dr. Cuba Weber MCHC 33.8 g/dl Normal 29.9-35.2 [facility] Comment on above: Performed By: #### C BCMAN #### [facility] [address] [place] [address] Dr. Cuba Weber MCV 84.6 fL Normal 80.0-94.0 [facility] Comment on above: Performed By: #### C BCMAN #### [facility] [address] [place] [address] Dr. Cuba Weber METAMYELOCYTE # Normal [facility] Comment on above: Performed By: #### C BCTERE #### [facility] [address] [place] [address] Dr. Cuba Weber METAMYELOCYTE % Normal [facility] Comment on above: Performed By: #### C BCTERE #### [facility] [address] [place] [address] Dr. Cuba Weber MONOM# 0.29 103/ul Critically low 0.30-0.80 [facility] Comment on above: Performed By: #### C BCMAN #### [facility] [address] [place] [address] Dr. Cuba Weber MONOM% 3.0 % Normal 1.7-12.0 [facility] Comment on above: Performed By: #### C BCMAN #### [facility] [address] [place] [address] Dr. Cuba Weber MPV 10.1 fL Normal 9.5-13.5 [facility] Comment on above: Performed By: #### C BCMAN #### [facility] [address] [place] [address] Dr. Cuba Weber MYELOCYTE # Normal The [facility] Comment on above: Performed By: #### C BCMAN #### [facility] [address] [place] [address] Dr. Cuba Weber MYELOCYTE % Normal [facility] Comment on above: Performed By: #### C BCTERE #### [facility] [address] [place] [address] Dr. Cuba Weber NRBC Normal [facility] Comment on above: Performed By: #### C BCMAN #### [facility] [address] [address] [address] Cuba Weber PLT 115 103/ul Critically low 150-450 [facility] Comment on above: Performed By: #### C BCMAN #### [facility] [address] [address] [address] Cuba Weber RBC 4.61 106/ul Critically low 4.70-6.[address] [facility] Comment on above: Performed By: #### C BCMAN #### [facility] [address] [address] [address] Cuba Weber RDW 14.3 % Normal 11.0-15.0 [facility] Comment on above: Performed By: #### C BCMAN #### [facility] [address] [place] [address] Dr. Cuba Weber SEG # 8.54 103/ul Critically high 1.40-6.50 [facility] Comment on above: Performed By: #### C BCMAN #### [facility] [address] [address] [address] Cuba Weber SEG % 89.0 % Critically high 43.0-75.0 [facility] Comment on above: Performed By: #### C BCMAN #### [facility] [address] [address] [address] Cuba Weber WBC 9.6 103/ul Normal 4.0-11.0 [facility] Comment on above: Performed By: #### C BCMAN #### [facility] [address] [place] [address] Dr. Cuba Weber CULTURE BLOODon 07-19-2022 Microscopic examination of blood, culture Culture Observations: Pediatric bottle positive; BCID= Klebsiella Pneumoniae Culture Observations: Refer to accession #[id number] for susceptibilities. Isolate 1 Klebsiella pneumoniae Growth of Normal [facility] Comment on above: Performed By: #### C BC #### [facility] [address] [place] [address] Dr. Cuba Weber LACTATE/LACTIC ACIDon 2022 Lactate [Moles/Vol] 2.9 mmol/L Critically high 0.4-2.0 [facility] Comment on above: Performed By: #### C BC #### [facility] [address] [address] [address] Cuba Weber Lactate [Moles/Vol] 3.4 mmol/L Critically high 0.4-2.0 [facility] Comment on above: Performed By: #### L ACT #### [facility] [address] [address] [address] Cuba Weber OCC BLD IMMUNO SCREENon 06-27 OCCULT BLOOD Negative Normal NEGATIVE [facility] Comment on above: Performed By: #### O BSCRN ####[facility] [address] [address]DrGlory Weber PROF CHEM 8 (BAS METB)on Anion gap [Moles/Vol] 15.1 mmol/L Normal [facility] Comment on above: Performed By: #### B VERNA, HSTROPN ####[facility] [address] [address]DrGlory Weber Calcium [Mass/Vol] 8.6 mg/dL Normal 8.5-10.1 [facility] Comment on above: Performed By: #### B MP, HSTROPN ####[facility] [address] [address]Dr. Cuba Weber Chloride [Moles/Vol] 99 mmol/L Normal 98-107 [facility] Comment on above: Performed By: #### B MP, HSTROPN ####[facility] [address] [address]DrGlory Weber CO2 [Moles/Vol] 21.5 mmol/L Normal 21.0-32.0 [facility] Comment on above: Performed By: #### B MP, HSTROPN ####[facility] [address] [address]DrGlory Weber Creatinine [Mass/Vol] 2.93 mg/dL Critically high 0.70-1.30 [facility] Comment on above: Performed By: #### B VERNA, HSTROPN ####[facility] [address] [address]Dr. Cuba Weber EGFR-AF ANDORRAN 26 mL/min/1.73m2 Critically low >=60 [facility] Comment on above: Performed By: #### B VERNA, HSTROPN ####[facility] [address] [address]Dr. Cuba Weber EGFR-NON AF ANDORRAN 22 mL/min/1.73m2 Critically low >=60 [facility] Comment on above: Performed By: #### B VERNA, HSTROPN ####[facility] [address] [address]Dr. Cuba Weber Glucose [Mass/Vol] 123 mg/dL Critically high 74-106 [facility] Comment on above: Performed By: #### B VERNA, HSTROPN ####[facility] [address] [place], [place] [address]Dr. Cuba Weber Potassium [Moles/Vol] 3.6 mmol/L Normal 3.5-5.1 [facility] Comment on above: Performed By: #### B VERNA, HSTROPN ####[facility] [address] [place], [place] [address]Dr. Cuba Weber Sodium [Moles/Vol] 132 mmol/L Critically low 136-145 [facility] Comment on above: Performed By: #### B VERNA, HSTROPN ####[facility] [address] [place], [place] [address]Dr. Cuba Weber Urea nitrogen [Mass/Vol] 34.0 mg/dL Critically high 7.0-18.0 [facility] Comment on above: Performed By: #### B VERNA, HSTROPN ####[facility] [address] [place], [place] [address]Dr. Cuba Weber Urea nitrogen/Creatinine [Mass ratio] 11.6 mg/mg Normal [facility] Comment on above: Performed By: #### B VERNA, HSTROPN ####[facility] [address] [address]Dr. Cuba Weber PROTIMEon 07-19-2022 INR Coag (PPP) [Relative time] 1.21 {INR} Normal [facility] Comment on above: Performed By: #### L ACT #### [facility] [address] [place] [address] Dr. Cuba Weber INR GUIDELINES SEE BELOW Normal [facility] Comment on above: Result Comment: GRAZYNA RED INR: 2.0 - 3.0 CONDITIONS NOT LISTED BELOW 2.5 - 3.5 FOR PROSTHETIC HEART VALVE REPLACEMENT 2.5 - 3.5 RECURRENT THROMBOSIS Performed By: #### L ACT #### [facility] [address] [place] [address] Dr. Cuba Weber PT Coag (PPP) [Time] 12.7 s Critically high 9.0-11.6 [facility] Comment on above: Performed By: #### L ACT #### [facility] [address] [place] [address] Dr. Cuba Weber PTTon 07-19-2022 aPTT Coag (Bld) [Time] 27.7 s Normal 22.3-36.2 [facility] Comment on above: Performed By: #### L ACT #### [facility] [address] [place] [address] Dr. Cuba Weber RESPIRATORY PANEL PLUSon Adenovirus Not detected Normal NOT DETECTED [facility] Comment on above: Performed By: #### R SPLUS #### [facility] [address] [place] [address] Dr. Cuba Monahan. Parapertusis Not detected Normal NOT DETECTED [facility] Comment on above: Performed By: #### R SPLUS #### [facility] [address] [place] [address] Dr. Cuba Gallegos Pertussis Not detected Normal NOT DETECTED The [facility] Comment on above: Performed By: #### R SPLUS #### [facility] [address] [place] [address] Dr. Cuba Weber Chlamydia Pneumoniae Not detected Normal NOT DETECTED The [facility] Comment on above: Performed By: #### R SPLUS #### [facility] [address] [place] [address] Dr. Cuba Weber Coronavirus 229E Not detected Normal NOT DETECTED The [facility] Comment on above: Performed By: #### R SPLUS #### [facility] [address] [address] [address] Cuba Weber Coronavirus HKU1 Not detected Normal NOT DETECTED The [facility] Comment on above: Performed By: #### R SPLUS #### [facility] [address] [place] [address] Dr. Cuba Weber Coronavirus NL63 Not detected Normal NOT DETECTED The [facility] Comment on above: Performed By: #### R SPLUS #### [facility] [address] [place] [address] Dr. Cuba Weber Coronavirus OC43 Not detected Normal NOT DETECTED The [facility] Comment on above: Performed By: #### R SPLUS #### [facility] [address] [place] [address] Dr. Cuba Weber Influenza A H1 Not detected Normal NOT DETECTED The [facility] Comment on above: Performed By: #### R SPLUS #### [facility] [address] [place] [address] Dr. Cuba Weber Influenza A H1 2009 Not detected Normal NOT DETECTED [facility] Comment on above: Performed By: #### R SPLUS #### [facility] [address] [place] [address] Dr. Cuba Weber Influenza A H3 Not detected Normal NOT DETECTED The [facility] Comment on above: Performed By: #### R SPLUS #### [facility] [address] [place] [address] Dr. Cuba Weber Influenza B Not detected Normal NOT DETECTED The [facility] Comment on above: Performed By: #### R SPLUS #### [facility] [address] [place] [address] Dr. Cuba Weber Metapneumovirus Not detected Normal NOT DETECTED [facility] Comment on above: Performed By: #### R SPLUS #### [facility] [address] [place] [address] Dr. Cuba Weber Mycoplas. Pneumoniae Not detected Normal NOT DETECTED The [facility] Comment on above: Performed By: #### R SPLUS #### [facility] [address] [place] [address] Dr. Cuba Weber Parainfluenza 1 Not detected Normal NOT DETECTED [facility] Comment on above: Performed By: #### R SPLUS #### [facility] [address] [place] [address] Dr. Cuba Weber Parainfluenza 2 Not detected Normal NOT DETECTED [facility] Comment on above: Performed By: #### R SPLUS #### [facility] [address] [place] [address] Dr. Cuba Weber Parainfluenza 3 Not detected Normal NOT DETECTED [facility] Comment on above: Performed By: #### R SPLUS #### [facility] [address] [place] [address] Dr. Cuba Weber Parainfluenza 4 Not detected Normal NOT DETECTED [facility] Comment on above: Performed By: #### R SPLUS #### [facility] [address] [place] [address] Dr. Cuba Weber Rhino/Enterovirus Not detected Normal NOT DETECTED The [facility] Comment on above: Performed By: #### R SPLUS #### [facility] [address] [place] [address] Dr. Cuba Weber RP2 Header 1 RESPIRATORY PANEL: VIRUSES Normal The [facility] Comment on above: Performed By: #### R SPLUS #### [facility] [address] [place] [address] Dr. Cuba Weber RP2 Header 2 RESPIRATORY PANEL: BACTERIA Normal The [facility] Comment on above: Performed By: #### R SPLUS #### [facility] [address] [place] [address] Dr. Cuba Weber RSV Not detected Normal NOT DETECTED [facility] Comment on above: Performed By: #### R SPLUS #### [facility] [address] [place] [address] Dr. Cuba Weber SARS-CoV-2 (COVID-19) RNA ROSSANA+probe Ql (Unsp spec) Not detected Normal NOT DETECTED The [facility] Comment on above: Performed By: #### R SPLUS #### [facility] [address] [place], [place] [address] Dr. Cuba Weber TROPONIN, HIGH SENSITIVITYon 07-19-2022 HSTROP 42.9 pg/mL Normal 4.0-76.1 The [facility] Comment on above: Result Comment: CUT- OFF POINTS HAVE BEEN ESTABLISHED BASED ON THE FOURTH UNIVERSAL DEFINITIONS OF MYOCARDIAL INFARCTION. THE UPPER REFERENCE LIMIT (URL) OF TROPONIN, DEFINED THE 99TH PERCENTILE OF cTnI DISTRIBUTION IN A REFERENCE POPULATION, HAS BEEN CONFIRMED THE DECISION THRESHOLD FOR CO DIAGNOSIS. Performed By: #### B MP, HSTROPN ####[facility] [address] [place], [place] [address]OaDr. Cuba Weber XR CHEST 1 Von 07-19-2022 [...] by: MINERVA REN Date: 2022-07-19 12:00 Normal The [facility] ECHOCARDIO M/2D COMPLETEon 0 05-10-2022 ECHOCARDIO M/2D COMPLETE Patient: FEDE GUERRA Exam Date: 05/10/2022 : 1955 Gender:M Ordering : YAZMIN MIGUELNANCYSYED Admission #: [id number] Family : Order #: [id number] CLICK HERE TO VIEW EXAM ECHOCARDIOGRAM REPORT [...] Vera M.D. on 05/11/2022 at 08:22 Normal [facility] NM STRESS/REST MULTIon 05-10 NM STRESS/REST MULTI Patient: FEDE GUERRA Exam Date: 05/10/2022 : 1955 Gender:M Ordering : YAZMIN CHILEL Admission #: [id number] Family : Order #: [id number] CLICK HERE TO VIEW EXAM RADIOLOGY REPORT [...] CK [Catalytic activity/Vol] 88 U/L Normal 39-308 The [facility] Comment on above: Performed By: #### L ACT #### [facility] [address] [place] [address] Dr. Cuba Weber CK.MB [Mass/Vol] ng/mL Normal <=3.60 [facility] Comment on above: Performed By: #### L ACT #### [facility] [address] [place] [address] Dr. Cuba Weber HSTROP 5.9 pg/mL Normal 4.0-76.1 The [facility] Comment on above: Result Comment: CUT- OFF POINTS HAVE BEEN ESTABLISHED BASED ON THE FOURTH UNIVERSAL DEFINITIONS OF MYOCARDIAL INFARCTION. THE UPPER REFERENCE LIMIT (URL) OF TROPONIN, DEFINED THE 99TH PERCENTILE OF cTnI DISTRIBUTION IN A REFERENCE POPULATION, HAS BEEN CONFIRMED THE DECISION THRESHOLD FOR CO DIAGNOSIS. Performed By: #### L ACT #### [facility] [address] [place] [address] Dr. Cuba Weber MOISÉS 46 ng/mL Normal 16-96 The [facility] Comment on above: Performed By: #### L ACT #### [facility] [address] [place] [address] Dr. Cuba eWber CBC AUTO DIFFon 05-01-2022 BASO # 0.0 103/ul Normal 0.0-0.1 [facility] Comment on above: Performed By: #### R SPLUS #### [facility] [address] [place] [address] Dr. Cuba Weber Basophils/100 WBC (Bld) 1.1 % Normal 0.2-2.0 [facility] Comment on above: Performed By: #### R SPLUS #### [facility] [address] [place] [address] Dr. Cuba Weber EO # 0.2 103/ul Normal 0.0-0.7 [facility] Comment on above: Performed By: #### R SPLUS #### [facility] [address] [place] [address] Dr. Cuba Weber Eosinophils/100 WBC (Bld) 6.4 % Normal 0.9-7.0 [facility] Comment on above: Performed By: #### R SPLUS #### [facility] [address] [place] [address] Dr. Cuba Weber Erythrocyte distribution width (RBC) [Ratio] 13.3 % Normal 11.0-15.0 [facility] Comment on above: Performed By: #### R SPLUS #### [facility] [address] [place] [address] Dr. Cuba Weber Hematocrit (Bld) [Volume fraction] 43.5 % Normal 42.0-54.0 [facility] Comment on above: Performed By: #### R SPLUS #### [facility] [address] [place] [address] Dr. Cuba Weber Hemoglobin (Bld) [Mass/Vol] 13.5 g/dL Critically low 14.0-18.0 [facility] Comment on above: Performed By: #### R SPLUS #### [facility] [address] [place] [address] Dr. Cuba Weber IG # 0.01 10e3/ul Normal 0.00-0.03 [facility] Comment on above: Performed By: #### R SPLUS #### [facility] [address] [place] [address] Dr. Cuba Weber IG % 0.3 % Normal 0.0-0.5 [facility] Comment on above: Performed By: #### R SPLUS #### [facility] [address] [place] [address] Dr. Cuba Weber LYMPH # 1.5 103/ul Normal 1.2-3.8 [facility] Comment on above: Performed By: #### R SPLUS #### [facility] [address] [place] [address] Dr. Cuba Weber Lymphocytes/100 WBC (Bld) 40.1 % Normal 20.5-60.0 [facility] Comment on above: Performed By: #### R SPLUS #### [facility] [address] [place] [address] Dr. Cuba Weber MANUAL DIFF REQ NO Normal [facility] Comment on above: Performed By: #### R SPLUS #### [facility] [address] [place] [address] Dr. Cuba Weber MCH (RBC) [Entitic mass] 28.0 pg Normal 25.9-34.0 [facility] Comment on above: Performed By: #### R SPLUS #### [facility] [address] [place] [address] Dr. Cuba Weber MCHC (RBC) [Mass/Vol] 31.0 g/dL Normal 29.9-35.2 [facility] Comment on above: Performed By: #### R SPLUS #### [facility] [address] [place] [address] Dr. Cuba Weber MCV (RBC) [Entitic vol] 90.2 fL Normal 80.0-94.0 [facility] Comment on above: Performed By: #### R SPLUS #### [facility] [address] [place] [address] Dr. Cuba Weber MONO # 0.4 103/ul Normal 0.3-0.8 [facility] Comment on above: Performed By: #### R SPLUS #### [facility] [address] [place] [address] Dr. Cuba Weber Monocytes/100 WBC (Bld) 11.9 % Normal 1.7-12.0 [facility] Comment on above: Performed By: #### R SPLUS #### [facility] [address] [place] [address] Dr. Cuba Weber NEUT # 1.5 103/ul Normal 1.4-6.5 [facility] Comment on above: Performed By: #### R SPLUS #### [facility] [address] [place] [address] Dr. Cuba Weber Neutrophils/100 WBC (Bld) 40.2 % Critically low 43.0-75.0 [facility] Comment on above: Performed By: #### R SPLUS #### [facility] [address] [address] [address] Cuba Weber Platelet mean volume (Bld) [Entitic vol] 9.5 fL Normal 9.5-13.5 The [facility] Comment on above: Performed By: #### R SPLUS #### [facility] [address] [place] [address] Dr. Cuba Weber PLT 239 103/ul Normal 150-450 [facility] Comment on above: Performed By: #### R SPLUS #### [facility] [address] [place] [address] Dr. Cuba Weber RBC 4.82 106/ul Normal 4.70-6.10 The [facility] Comment on above: Performed By: #### R SPLUS #### [facility] [address] [place] [address] Dr. Cuba Weber WBC 3.6 103/ul Critically low 4.0-11.0 [facility] Comment on above: Performed By: #### R SPLUS #### [facility] [address] [place] [address] Dr. Cuba Weber PROF 14(COMP METB)on 023 Albumin [Mass/Vol] 3.7 g/dL Normal 3.4-5.0 [facility] Comment on above: Performed By: #### L ACT #### [facility] [address] [place] [address] Dr. Cuba Weber Albumin/Globulin [Mass ratio] 0.9 {ratio} Normal [facility] Comment on above: Performed By: #### L ACT #### [facility] [address] [place] [address] Dr. Cuba Weber ALP [Catalytic activity/Vol] 91 U/L Normal 46-116 [facility] Comment on above: Performed By: #### L ACT #### [facility] [address] [address] [address] Cuba Weber ALT [Catalytic activity/Vol] 20 U/L Normal 16-63 [facility] Comment on above: Performed By: #### L ACT #### [facility] [address] [address] [address] Cuba Weber Anion gap [Moles/Vol] 11.3 mmol/L Normal [facility] Comment on above: Performed By: #### L ACT #### [facility] [address] [place] [address] Dr. Cuba Weber AST [Catalytic activity/Vol] 22 U/L Normal 15-37 [facility] Comment on above: Performed By: #### L ACT #### [facility] [address] [place] [address] Dr. Cuba Weber Bilirubin [Mass/Vol] 0.6 mg/dL Normal 0.2-1.0 [facility] Comment on above: Performed By: #### L ACT #### [facility] [address] [place] [address] Dr. Cuba Weber Calcium [Mass/Vol] 9.7 mg/dL Normal 8.5-10.1 [facility] Comment on above: Performed By: #### L ACT #### [facility] [address] [address] [address] Cuba Weber Chloride [Moles/Vol] 107 mmol/L Normal 98-107 [facility] Comment on above: Performed By: #### L ACT #### [facility] [address] [address] [address] Cuba Weber CO2 [Moles/Vol] 29.0 mmol/L Normal 21.0-32.0 [facility] Comment on above: Performed By: #### L ACT #### [facility] [address] [address] [address] Cuba Webre Creatinine [Mass/Vol] 0.79 mg/dL Normal 0.70-1.30 [facility] Comment on above: Performed By: #### L ACT #### [facility] [address] [address] [address] Cuba Weber EGFR-AF ANDORRAN >60 Normal >=60 [facility] Comment on above: Performed By: #### L ACT #### [facility] [address] [address] [address] Cuba Weber EGFR-NON AF ANDORRAN >60 Normal >=60 [facility] Comment on above: Performed By: #### L ACT #### [facility] [address] [address] [address] Cuba Weber Globulin (S) [Mass/Vol] 4.0 g/dL Normal [facility] Comment on above: Performed By: #### L ACT #### [facility] [address] [place] [address] Dr. Cbua Weber Glucose [Mass/Vol] 97 mg/dL Normal 74-106 [facility] Comment on above: Performed By: #### L ACT #### [facility] [address] [address] [address] Cuba Weber Potassium [Moles/Vol] 4.3 mmol/L Normal 3.5-5.1 [facility] Comment on above: Performed By: #### L ACT #### [facility] [address] [place] [address] Dr. Cuba Weber Protein [Mass/Vol] 7.7 g/dL Normal 6.4-8.2 [facility] Comment on above: Performed By: #### L ACT #### [facility] [address] [address] [address] Cuba Weber Sodium [Moles/Vol] 143 mmol/L Normal 136-145 [facility] Comment on above: Performed By: #### L ACT #### [facility] [address] [address] [address] Cuba Weber Urea nitrogen [Mass/Vol] 11.0 mg/dL Normal 7.0-18.0 [facility] Comment on above: Performed By: #### L ACT #### [facility] [address] [place], [place] [address] Dr. Cuba Weber Urea nitrogen/Creatinine [Mass ratio] 13.9 mg/mg Normal [facility] Comment on above: Performed By: #### L ACT #### [facility] [address] [place], [place] [address] Dr. Cuba Weber TROPONIN, HIGH SENSITIVITYon 05-01-2022 HSTROP <4.0 Normal 4.0-76.1 [facility] Comment on above: Result Comment: CUT- OFF POINTS HAVE BEEN ESTABLISHED BASED ON THE FOURTH UNIVERSAL DEFINITIONS OF MYOCARDIAL INFARCTION. THE UPPER REFERENCE LIMIT (URL) OF TROPONIN, DEFINED THE 99TH PERCENTILE OF cTnI DISTRIBUTION IN A REFERENCE POPULATION, HAS BEEN CONFIRMED THE DECISION THRESHOLD FOR CO DIAGNOSIS. Performed By: #### H STROPN ####[facility] [address] [place], [place] [address]CwDr. Cuba Weber XR CHEST 1 Von 05-01-2022 [...] by: AUSTIN WHALEY Date: 2022-05-01 09:55 Normal [facility] Telemedicineon 04-23-2022 Telemedicine [id number] Lately,Fede Drew Sr. 1955 M Date Provider Department Center 04/23/2022 3848-YAZMIN CHILEL [facility] No family history on file Level of Service:29943 SC OFFICE/OUTPATIENT NEW MODERATE MDM 45-59 MINUTES Normal [facility] CBC AUTO DIFFon 04-09-2022 BASO # 0.0 103/ul Normal 0.0-0.1 [facility] Comment on above: Performed By: #### C BC ####[facility] [address] [id number] Cuba Weber Basophils/100 WBC (Bld) 0.7 % Normal 0.2-2.0 [facility] Comment on above: Performed By: #### C BC ####[facility] [address] [place], [place] [id number]. Cuba Weber EO # 0.3 103/ul Normal 0.0-0.7 [facility] Comment on above: Performed By: #### C BC ####[facility] [address] [id number]. Cuba Weber Eosinophils/100 WBC (Bld) 6.8 % Normal 0.9-7.0 [facility] Comment on above: Performed By: #### C BC ####[facility] [address] [place], [place] [address]Dr. Cuba Weber Erythrocyte distribution width (RBC) [Ratio] 13.2 % Normal 11.0-15.0 [facility] Comment on above: Performed By: #### C BC ####[facility] [address] [place], [place] [address]Dr. Cuba Weber Hematocrit (Bld) [Volume fraction] 42.5 % Normal 42.0-54.0 [facility] Comment on above: Performed By: #### C BC ####[facility] [address] [place], [place] [id number]. Cuba Weber Hemoglobin (Bld) [Mass/Vol] 13.7 g/dL Critically low 14.0-18.0 [facility] Comment on above: Performed By: #### C BC ####[facility] [address] [place], [place] [address]Dr. Cuba Weber IG # 0.01 10e3/ul Normal 0.00-0.03 [facility] Comment on above: Performed By: #### C BC ####[facility] [address] [place], [place] [id number]. Cuba Weber IG % 0.2 % Normal 0.0-0.5 The [facility] Comment on above: Performed By: #### C BC ####[facility] [address] [place] [id number]. Cuba Weber LYMPH # 1.5 103/ul Normal 1.2-3.8 [facility] Comment on above: Performed By: #### C BC ####[facility] [address]ua[address] [place] [id number]. Cuba Weber Lymphocytes/100 WBC (Bld) 35.8 % Normal 20.5-60.0 [facility] Comment on above: Performed By: #### C BC ####[facility] [address] [place] [id number]. Cuba Weber MANUAL DIFF REQ NO Normal [facility] Comment on above: Performed By: #### C BC ####[facility] [address] [place] [id number]. Cuba Weber MCH (RBC) [Entitic mass] 27.5 pg Normal 25.9-34.0 [facility] Comment on above: Performed By: #### C BC ####[facility] [address] [place] [phone]. Cuba Weber MCHC (RBC) [Mass/Vol] 32.2 g/dL Normal 29.9-35.2 [facility] Comment on above: Performed By: #### C BC ####[facility] [address] [place] [phone]. Cuba Weber MCV (RBC) [Entitic vol] 85.3 fL Normal 80.0-94.0 [facility] Comment on above: Performed By: #### C BC ####[facility] [address] [place] [id number]. Cuba Wbeer MONO # 0.5 103/ul Normal 0.3-0.8 [facility] Comment on above: Performed By: #### C BC ####[facility] [address] [place] [id number]. Cuba Weber Monocytes/100 WBC (Bld) 11.2 % Normal 1.7-12.0 [facility] Comment on above: Performed By: #### C BC ####[facility] [address] [place] [phone]. Cuba Weber NEUT # 1.9 103/ul Normal 1.4-6.5 [facility] Comment on above: Performed By: #### C BC ####[facility] [address] [place] [phone]. Cuba Weber Neutrophils/100 WBC (Bld) 45.3 % Normal 43.0-75.0 [facility] Comment on above: Performed By: #### C BC ####[facility] [address]uj[address] [place] [phone]. Cuba Weber Platelet mean volume (Bld) [Entitic vol] 10.2 fL Normal 9.5-13.5 [facility] Comment on above: Performed By: #### C BC ####[facility] [address] [place] [phone]. Cuba Weber PLT 232 103/ul Normal 150-450 [facility] Comment on above: Performed By: #### C BC ####[facility] E[address]od[address] [place] [phone]. Cuba Weber RBC 4.98 106/ul Normal 4.70-6.10 [facility] Comment on above: Performed By: #### C BC ####[facility] [address]cm[address] [place] [phone]. Cuba Weber WBC 4.3 103/ul Normal 4.0-11.0 [facility] Comment on above: Performed By: #### C BC ####[facility] [address] [place] [phone]. Cuba Weber Covid-19 PCR (CVDTB)on 03-28 SARS-CoV-2 [...] for this test is supported by the [employer] of Health and Human Service's (HHS's) declaration [...] #### [facility] Laboratory [address] [place] [address] Dr. Cuba Weber PROF CHEM 8 (BAS METB)on Anion gap [Moles/Vol] 14.1 mmol/L Normal [facility] Comment on above: Performed By: #### B MP ####[facility] [address] [place] [address]Dr. Cuba Weber Calcium [Mass/Vol] 9.3 mg/dL Normal 8.5-10.1 [facility] Comment on above: Performed By: #### B MP ####[facility] [address] [place] [address]Dr. Cuba Weber Chloride [Moles/Vol] 106 mmol/L Normal 98-107 [facility] Comment on above: Performed By: #### B MP ####[facility] [address]oms[address]qi[address] [place] [phone]. Cuba Weber CO2 [Moles/Vol] 26.1 mmol/L Normal 21.0-32.0 [facility] Comment on above: Performed By: #### B MP ####[facility] [address] [place] [address]Dr. Cuba Weber Creatinine [Mass/Vol] 0.93 mg/dL Normal 0.70-1.30 [facility] Comment on above: Performed By: #### B MP ####[facility] [address]ch[address]dh[address] [place] [phone]. Cuba Weber EGFR-AF ANDORRAN >60 Normal >=60 [facility] Comment on above: Performed By: #### B MP ####[facility] [address] [place] [address]Dr. Cuba Weber EGFR-NON AF ANDORRAN >60 Normal >=60 [facility] Comment on above: Performed By: #### B MP ####[facility] [address] [place] [address]Dr. Cuba Weber Glucose [Mass/Vol] 111 mg/dL Critically high 74-106 [facility] Comment on above: Performed By: #### B MP ####[facility] [address] [place] [address]Dr. Cuba Weber Potassium [Moles/Vol] 4.0 mmol/L Normal 3.5-5.1 [facility] Comment on above: Performed By: #### B MP ####[facility] [address]st[address] [place] [address]Dr. Cuba Weber Sodium [Moles/Vol] 142 mmol/L Normal 136-145 [facility] Comment on above: Performed By: #### B MP ####[facility] [address]xcs[address] [place] [address]Dr. Cuba Weber Urea nitrogen [Mass/Vol] 9.0 mg/dL Normal 7.0-18.0 [facility] Comment on above: Performed By: #### B MP ####[facility] [address] [place] [address]Dr. Cuba Weber Urea nitrogen/Creatinine [Mass ratio] 9.6 mg/mg Normal [facility] Comment on above: Performed By: #### B MP ####[facility] [address] [place] [address]Dr. Cuba Weber PROTIMEon 04-09-2022 INR Coag (PPP) [Relative time] 0.99 {INR} Normal [facility] Comment on above: Performed By: #### P TT, PT #### [facility] [address] [place] [address] [address] Cuba Weber INR GUIDELINES SEE BELOW Normal [facility] Comment on above: Result Comment: GRAZYNA RED INR: 2.0 - 3.0 CONDITIONS NOT LISTED BELOW 2.5 - 3.5 FOR PROSTHETIC HEART VALVE REPLACEMENT 2.5 - 3.5 RECURRENT THROMBOSIS Performed By: #### P TT, PT #### [facility] [address] [place] [address] [address] Cuba Weber PT Coag (PPP) [Time] 10.5 s Normal 9.0-11.6 [facility] Comment on above: Performed By: #### P TT, PT #### [facility] [address] [place] [address] [address] Cuba Weber PTTon 04-09-2022 aPTT Coag (Bld) [Time] 29.2 s Normal 22.3-36.2 [facility] Comment on above: Performed By: #### P TT, PT #### [facility] [address] [place] [address] [address] Cuba Weber XR KUB 1 VIEWon [...] by: MINERVA REN Date: 2022-04-09 16:33 Normal [facility] Creatinine and Glomerular fi ltration rate.predicted panel (S/P/Bld)Ordered By: Robbi Quezada on 02-22-2022 Creatinine [Mass/Vol] 0.83 mg/dL 0.64-1.27 [facility] Estimated glomerular filtrat ion rate (GFR) non- AmericanOrdered By: Robbi Quezada on 02-22-2022 GFR/1.73 sq M.predicted among non-blacks MDRD (S/P/Bld) [Vol rate/Area] > 60 mL/Min [facility] No Panel InformationOrdered By: Robbi Quezada on 02-22-2022 Estimated GFR () > 60 mL/Min [facility] Comment on above: GFR estimated refere nce range: According to KDOQI guidelines, <60 ml/min/1.73m2 is sufficient to diagnose a patient with chronic kidney disease. Pharmacy Creatinine Clearance (Chem N/A [facility] Serum or plasma urea nitroge n measurement (mass/volume)Ordered By: Robbi Quezada on 02-22-2022 Urea nitrogen [Mass/Vol] 12 mg/dL 12-18 [facility] HEMOGRAM AND PLATELon 2021 Hematocrit (Bld) [Volume fraction] 44.5 % Normal 42.0-54.0 [facility] Comment on above: Performed By: #### H H ####[facility] [address] [place], [place] [address]DrGlory Weber Hemoglobin (Bld) [Mass/Vol] 14.8 g/dL Normal 14.0-18.0 [facility] Comment on above: Performed By: #### H H ####[facility] [address] [place], [place] [address]DrGlory Weber MCH (RBC) [Entitic mass] 29.0 pg Normal 25.9-34.0 [facility] Comment on above: Performed By: #### H H ####[facility] [address] [place], [place] [address]DrGlory Weber MCHC (RBC) [Mass/Vol] 33.3 g/dL Normal 29.9-35.2 [facility] Comment on above: Performed By: #### H H ####[facility] [address] [place], [place] [address]DrGlory Weber MCV (RBC) [Entitic vol] 87.3 fL Normal 80.0-94.0 [facility] Comment on above: Performed By: #### H H ####[facility] [address] [place], [place] [address]DrGlory Weber PLT 253 103/ul Normal 150-450 [facility] Comment on above: Performed By: #### H H ####[facility] [address] [place], [place] [address]Zg. Sharynshasta Gus RBC 5.10 106/ul Normal 4.70-6.10 [facility] Comment on above: Performed By: #### H H ####[facility] [address] [place], [place] [address]Dm. Cuba Weber WBC 4.0 103/ul Normal 4.0-11.0 [facility] Comment on above: Performed By: #### H H ####[facility] [address] [place] [phone] Weber LIPID PROFILEon 02-01-2022 CHOL-HDL RATIO NORM SEE BELOW Normal [facility] Comment on above: Result Comment: 3.3 - 4.4 LOW RISK 4.4 - 7.1 AVERAGE RISK 7.1 - 11.0 MODERATE RISK >11.0 HIGH RISK Performed By: #### L IPID, CMP #### [facility] [address] [place] [address] [address] Cuba Weber Cholesterol [Mass/Vol] 140 mg/dL Normal <=200 [facility] Comment on above: Performed By: #### L IPID, CMP #### [facility] [address] [place] [address] [address] Cuba Weber Cholesterol in HDL [Mass/Vol] 38 mg/dL Critically low 40-60 [facility] Comment on above: Performed By: #### L IPID, CMP #### [facility] [address] [place] [address] [address] Cuba Weber Cholesterol in LDL [Mass/Vol] 92.4 mg/dL Normal [facility] Comment on above: Performed By: #### L IPID, CMP #### [facility] [address] [place] [address] [address] Cuba Weber Cholesterol.total/Eboni sterol in HDL [Mass ratio] 3.7 {ratio} Normal [facility] Comment on above: Performed By: #### L IPID, CMP #### [facility] [address] [place] [address] [address] Cuba Weber HDL NORMAL > or = 60 mg/dl - LOW CARDIOVASCULAR RISK <40 mg/dl - HIGH CARDIOVASCULAR RISK Normal [facility] Comment on above: Performed By: #### L IPID, CMP #### [facility] [address] [place] [address] [address] Cuba Weber LDL CALC NORMAL SEE BELOW Normal [facility] Comment on above: Result Comment: <100 mg/dl OPTIMAL 100 - 129 mg/dl NEAR OR ABOVE OPTIMAL 130 - 159 mg/dl BORDERLINE HIGH 160 - 189 mg/dl HIGH >190 mg/dl VERY HIGH Performed By: #### L IPID, CMP #### [facility] [address] [place] [address] Dr. Cuba Weber Triglyceride [Mass/Vol] 48 mg/dL Normal <=150 [facility] Comment on above: Performed By: #### L IPID, CMP #### [facility] [address] [place] [address] [address] Cuba Weber VLDL CALC 9.6 mg/dL Normal [facility] Comment on above: Performed By: #### L IPID, CMP #### [facility] [address] [place] [address] Dr. Cuba Weber PROF 14(COMP METB)on 022 Albumin [Mass/Vol] 3.7 g/dL Normal 3.4-5.0 [facility] Comment on above: Performed By: #### L IPID, CMP #### [facility] [address] [place] [address] Dr. Cuba Weber Albumin/Globulin [Mass ratio] 0.9 {ratio} Normal [facility] Comment on above: Performed By: #### L IPID, CMP #### [facility] [address] [place] [address] Dr. Cuba Weber ALP [Catalytic activity/Vol] 92 U/L Normal 46-116 [facility] Comment on above: Performed By: #### L IPID, CMP #### [facility] [address] [place] [address] Dr. Cuba Weber ALT [Catalytic activity/Vol] 10 U/L Critically low 16-63 [facility] Comment on above: Performed By: #### L IPID, CMP #### [facility] [address] [place] [address] Dr. Cuba Weber Anion gap [Moles/Vol] 7.4 mmol/L Normal [facility] Comment on above: Performed By: #### L IPID, CMP #### [facility] [address] [place] [address] Dr. Cuba Weber AST [Catalytic activity/Vol] 12 U/L Critically low 15-37 [facility] Comment on above: Performed By: #### L IPID, CMP #### [facility] [address] [place] [address] Dr. Cuba Weber Bilirubin [Mass/Vol] 0.5 mg/dL Normal 0.2-1.0 [facility] Comment on above: Performed By: #### L IPID, CMP #### [facility] [address] [place] [address] Dr. Cuba Weber Calcium [Mass/Vol] 9.3 mg/dL Normal 8.5-10.1 [facility] Comment on above: Performed By: #### L IPID, CMP #### [facility] [address] [place] [address] Dr. Cuba Weber Chloride [Moles/Vol] 105 mmol/L Normal 98-107 [facility] Comment on above: Performed By: #### L IPID, CMP #### [facility] [address] [place] [address] Dr. Cuba Weber CO2 [Moles/Vol] 27.8 mmol/L Normal 21.0-32.0 [facility] Comment on above: Performed By: #### L IPID, CMP #### [facility] [address] [place] [address] Dr. Cuba Weber Creatinine [Mass/Vol] 0.83 mg/dL Normal 0.70-1.30 [facility] Comment on above: Performed By: #### L IPID, CMP #### [facility] [address] [place] [address] Dr. Cuba Weber EGFR-AF ANDORRAN >60 Normal >=60 [facility] Comment on above: Performed By: #### L IPID, CMP #### [facility] [address] [place] [address] Dr. Cuba Weber EGFR-NON AF ANDORRAN >60 Normal >=60 [facility] Comment on above: Performed By: #### L IPID, CMP #### [facility] [address] [address] [address] Cuba Weber Globulin (S) [Mass/Vol] 4.2 g/dL Normal [facility] Comment on above: Performed By: #### L IPID, CMP #### [facility] [address] [place] [address] Dr. Cuba Weber Glucose [Mass/Vol] 80 mg/dL Normal 74-106 [facility] Comment on above: Performed By: #### L IPID, CMP #### [facility] [address] [place] [address] Dr. Cuba Weber Potassium [Moles/Vol] 4.2 mmol/L Normal 3.5-5.1 [facility] Comment on above: Performed By: #### L IPID, CMP #### [facility] [address] [place] [address] Dr. Cuba Weber Protein [Mass/Vol] 7.9 g/dL Normal 6.4-8.2 [facility] Comment on above: Performed By: #### L IPID, CMP #### [facility] [address] [place] [address] Dr. Cuba Weber Sodium [Moles/Vol] 136 mmol/L Normal 136-145 [facility] Comment on above: Performed By: #### L IPID, CMP #### [facility] [address] [place] [address] Dr. Cuba Weber Urea nitrogen [Mass/Vol] 15.0 mg/dL Normal 7.0-18.0 [facility] Comment on above: Performed By: #### L IPID, CMP #### [facility] [address] [place], [place] [address] Dr. Cuba Weber Urea nitrogen/Creatinine [Mass ratio] 18.1 mg/mg Normal [facility] Comment on above: Performed By: #### L IPID, CMP #### [facility] [address] [place], [place] [address] Dr. Cuba Weber CBC and Differentialon 10-12 Abs Baso 0.04 k/uL Normal <0.11 [facility] Abs Willacy 0.81 k/uL Normal <0.87 [facility] Abs Neut 3.32 k/uL Normal 1.45-7.50 [facility] Absolute nRBC <0.01 Normal [facility]100 WBC (Bld) 0.7 % Normal [facility] DTYPE Auto Diff Normal [facility] Eosinophils (Bld) [#/Vol] 0.13 10*3/uL Normal <0.46 [facility] Eosinophils/100 WBC (Bld) 2.4 % Normal [facility] Erythrocyte distribution width (RBC) [Ratio] 12.4 % Normal 11.5-15.0 [facility] Hematocrit (Bld) [Volume fraction] 36.7 % Low 39.0-51.0 [facility] Hemoglobin (Bld) [Mass/Vol] 11.9 g/dL Low 13.0-17.0 [facility] Lymphocytes (Bld) [#/Vol] 1.19 10*3/uL Normal 1.00-4.00 [facility] Lymphocytes/100 WBC (Bld) 21.7 % Normal [facility] MCH (RBC) [Entitic mass] 29.0 pG Normal 26.0-34.0 [facility] MCHC (RBC) [Mass/Vol] 32.4 g/dL Normal 30.5-36.0 [facility] MCV (RBC) [Entitic vol] 89.3 fL Normal 80.0-100.0 [facility] Monocytes/100 WBC (Bld) 14.8 % Normal [facility] Neutrophils/100 WBC (Bld) 60.4 % Normal [facility] NRBCs 0.0 /100 WBC Normal 0 [facility] l Platelet mean volume (Bld) [Entitic vol] 9.7 fL Normal 9.0-12.7 [facility] l Platelets (Bld) [#/Vol] 388 10*3/uL Normal 150-400 [facility] RBC (Bld) [#/Vol] 4.11 10*6/uL Low 4.20-6.00 [facility] WBC (d) [#/Vol] 5.49 10*3/uL Normal 3.70-11.[address] [facility] [address] CHEST W IVCON PEon 2019 CT CHEST W IVCON PE * * *Final Report* * * DATE OF EXAM: Oct 13 2019 12:23PM [facility] 0540 - CT CHEST W [...] No abnormality in the imaged upper abdomen. Mapping Pilot (topogram) images: Unremarkable. IMPRESSION: No CT evidence of pulmonary embolism. Mild atelectasis Circuit Manager: PSCB Transcribe Date/Time: Oct 13 2019 12:38P Dictated by : ERIKA DAVIS MD This examination was interpreted and the report reviewed and electronically signed by: ERIKA DAVIS MD on Oct 13 2019 12:43PM EST [id number] CN Normal [facility] Comp Metabolic Panelon 10-12 Albumin [Mass/Vol] 3.9 g/dL Normal 3.9-4.9 [facility] ospital ALP [Catalytic activity/Vol] 62 U/L Normal 38-113 [facility] ALT [Catalytic activity/Vol] 14 U/L Normal 10-54 [facility] Anion gap [Moles/Vol] 10 mmol/L Normal 9-18 [facility] AST [Catalytic activity/Vol] 14 U/L Normal 14-40 [facility] Bilirubin [Mass/Vol] mg/dL Low 0.2-1.3 [facility] Calcium [Mass/Vol] 9.9 mg/dL Normal 8.5-10.2 [facility] o[facility]ital Chloride [Moles/Vol] 101 mmol/L Normal 97-105 [facility] CO2 [Moles/Vol] 26 mmol/L Normal 22-30 [facility] ital Creatinine [Mass/Vol] 0.85 mg/dL Normal 0.73-1.22 [facility] eGFR- Amer. >60 Normal [facility] ospital GFR/1.73 sq M predicted among non-blacks MDRD (S/P/Bld) [Vol rate/Area] mL/min/{1.73_m2} Normal [facility] Comment on above: Result Comment: eGFR [...] ospital Comment on above: Result Comment: The [place] [employer] (ADA) provides guidance for cutoff [...] Standards of Medical Care in Diabetes 2016, [place] [employer]. Diabetes Care. 2016.39(Suppl 1). Potassium [Moles/Vol] 4.2 mmol/L Normal 3.7-5.1 [facility] Protein [Mass/Vol] 6.9 g/dL Normal 6.3-8.0 [facility] Sodium [Moles/Vol] 137 mmol/L Normal 136-144 [facility] Urea nitrogen [Mass/Vol] 14 mg/dL Normal 9-24 [facility] ED NOTEon 10-13-2019 ED NOTE HNO ID: [id number] Author: Elzbieta (Rn) HANY Ayala Service: Nursing Author Type: Registered Nurse Type: ED Notes Filed: 10/13/2019 2:01 PM Note Text: Pt transported back to [facility] via [facility] in stable condition, but AMA. Pt states that he understands that he is leaving AMA and accepts the implications of doing so. Report called to charge nurse at [facility]. Report also given to [facility] personal. [facility] ED NOTE HNO ID: [id number] Author: Kaykay Rivero RN Service: ? Author Type: Registered Nurse Type: ED Notes Filed: 10/13/2019 10:39 AM Note Text: Dr. Pérez at bedside to examine pt. [facility] ED NOTE HNO ID: [id number] Author: Kaykay Rivero RN Service: ? Author Type: Registered Nurse Type: ED Notes Filed: 10/13/2019 10:10 AM Note Text: Portable CXR being done [facility] ED NOTE HNO ID: [id number] Author: Kaykay Rivero RN Service: ? Author [...] bed with siderails up x 2. Normal [facility] ED NOTE HNO ID: [id number] Author: Kaykay Rivero RN Service: ? Author Type: Registered Nurse Type: ED Notes Filed: 10/13/2019 9:52 AM Note Text: Bed: ED-09 Expected date: 10/13/19 Expected time: 9:52 AM Means of arrival: [facility] FD Comments: AFD Normal [facility] ED PROV NOTEon 10-13-2019 ED PROV NOTE HNO ID: [id number] Author: Shashi Pérez Service: Emergency Medicine Author [...] bladder - Neurogenic bowel - Spastic quadriplegia [facility] - Spinal cord injury at C1-C4 level ([facility]) - TBI (traumatic brain injury) ([facility]) History reviewed. No pertinent surgical [...] CT evidence of pulmonary embolism. Mild atelectasis Circuit Manager: ENEIDA Transcribe Date/Time: Oct 13 2019 12:38P [...] atelectasis although resolving infiltrate is also possible. Circuit Manager: [facility] Transcribe Date/Time: Oct 13 2019 10:30A Dictated [...] of the patient and have reviewed the PA/SLEEP TECHNICIAN note. My locke findings include: History is [...] 2:54 PM Shashi Pérez 10/13/19 1458 Normal [facility] Magnesiumon 10-13-2019 Magnesium [Mass/Vol] 1.7 mg/dL Normal 1.7-2.3 [facility] NT Pro BNPon 10-13-2019 PRO B Natr Peptide 52 pg/mL Normal <125 [facility] ospital PROGRESSon 10-13-2019 PROGRESS HNO ID: [id number] Author: NBA Bose (Ct) Service: Radiology Author Type: Learning Design Specialist Type: Progress Notes Filed: 10/13/2019 12:27 PM [...] 2019 TIME: 12:26 PM PAGER/CONTACT #: Normal [facility] PROGRESS HNO ID: [id number] Author: NBA Bose (Ct) Service: Radiology Author Type: Learning Design Specialist Type: Progress Notes Filed: 10/13/2019 12:26 PM [...] Bose October 13, 2019 12:26 PM Normal [facility] PROGRESS HNO ID: [id number] Author: Pat ThomasRtJoel Mijares Service: Radiology Author Type: Learning Design Specialist Type: Progress Notes Filed: 10/13/2019 10:19 AM [...] COLLINS(R) October 13, 2019 10:18 AM Normal [facility] Troponin Ton 10-13-2019 Troponin T.cardiac [Mass/Vol] ug/L Normal 0.000-0.029 [facility] XR CHEST 1V FRONTAL PORTon 0 [...] atelectasis although resolving infiltrate is also possible. Circuit Manager: ENEIDA Transcribe Date/Time: Oct 13 2019 10:30A Dictated by : MILO SORTO MD This examination was interpreted and the report reviewed and electronically signed by: MILO SORTO MD on Oct 13 2019 10:31AM EST [id number] CN [facility] EKG 12 Leadon 10-09-2019 Atrial Rate 57 BPM [place] P [place] 76 degrees [facility], [place] P-R Interval 170 ms [place] Q-T Interval 400 ms [facility] [place] QRS Duration 92 ms [place] QTc Calculation (Bazett) 389 ms [facility] [place] R [place] 51 degrees [facility] [place], [place] T [place] 45 degrees [place] Ventricular Rate 57 BPM [place] Sinus bradycardia with sinus arrhythmia Septal infarct , age undetermined Abnormal ECG No previous ECGs available [place] S[place], [facility] Incoming Ekg Results From [facility] [place] - 10/09/2019 12:35 PM EDT Sinus bradycardia with sinus arrhythmia Septal infarct , age undetermined Abnormal ECG No previous ECGs available [place] POC Glucose Fingerstickon Glucose [Mass/Vol] 115 mg/dL High 75 - 110 mg/dL [place] Interpretation and review of laboratory results Abnormal [place] Glucose [Mass/Vol] 132 mg/dL High 75 - 110 mg/dL [place] Interpretation and review of laboratory results Abnormal [place] Glucose [Mass/Vol] 120 mg/dL High 75 - 110 mg/dL [place] Interpretation and review of laboratory results Abnormal [place] BASIC METABOLIC PANELon 07-0 3-2020 Anion gap [Moles/Vol] 10 mmol/L 9 - 17 mmol/L [place] Bun/Cre Ratio NOT REPORTED [place] Calcium [Mass/Vol] 8.4 mg/dL Low 8.6 - 10. 4 mg/dL [place] Chloride [Moles/Vol] 103 mmol/L 98 - 10 7 mmol/L [place] CO2 [Moles/Vol] 28 mmol/L 20 - 31 mmol/L [place] Creatinine [Mass/Vol] 0.67 mg/dL Low 0.7 - 1.2 mg/dL [place] GFR >60 >60 mL/min [place] GFR Non- >60 >60 mL/min [place] GFR/1.73 sq M predicted among non-blacks MDRD (S/P/Bld) [Vol rate/Area] [place] Comment on above: Average GFR for 60-6 9 years old: 85 mL/min/1.73sq m Chronic Kidney Disease: <60 mL/min/1.73sq m Kidney failure: <15 mL/min/1.73sq m eGFR calculated using average adult body mass. Additional eGFR calculator available at: http://www.[employer]/multiple_crcl_2012.htm GFR/1.73 sq M predicted among non-blacks MDRD (S/P/Bld) [Vol rate/Area] NOT REPORTED [place] Glucose [Mass/Vol] 121 mg/dL High 70 - 99 mg/dL [place] Interpretation and review of laboratory results Abnormal [place] Potassium [Moles/Vol] 4.1 mmol/L 3.7 - 5.3 mmol/L [place] Sodium [Moles/Vol] 141 mmol/L 135 - 144 mmol/L [place] Urea nitrogen [Mass/Vol] 10 mg/dL 8 - 23 mg/dL [place] Basic Metabolic Profon 09-27 (cont.) Normal [facility] Comment on above: Result Comment: Aver age GFR for 60-69 years old: 85 mL/min/1.73sq m Chronic Kidney Disease: <60 mL/min/1.73sq m Kidney failure: <15 mL/min/1.73sq m eGFR calculated using average adult body mass. Additional eGFR calculator available at: http://www.[employer]/multiple_crcl_2012.htm Performed By: #### T YS #### [facility] [address] [place] [address] Cartography Professor: Tre Ferrell MD Anion gap [Moles/Vol] 10 mmol/L Normal 9-17 [facility] Comment on above: Performed By: #### T YS #### [address] [address] Cartography Professor: Tre Ferrell MD Calcium [Mass/Vol] 8.4 mg/dL Low 8.6-10.4 [facility] Comment on above: Performed By: #### T YS #### [facility] [address] [place] [address] Cartography Professor: Tre Ferrell MD Chloride [Moles/Vol] 103 mmol/L Normal 98-107 [facility] Comment on above: Performed By: #### T YS #### [facility] [address] [place] [address] Cartography Professor: Tre Ferrell MD CO2 [Moles/Vol] 28 mmol/L Normal 20-31 [facility] Comment on above: Performed By: #### T YS #### [facility] [address] [place] [address] Cartography Professor: Tre Ferrell MD Creatinine [Mass/Vol] 0.67 mg/dL Low 0.70-1.20 [facility] Comment on above: Performed By: #### T YS #### [address] [address] Cartography Professor: Tre Ferrell MD GFR, Amer >60 Normal >60 [facility] Comment on above: Performed By: #### T YS #### [facility] [address] [place] [address] Cartography Professor: Tre Ferrell MD GFR,non Amer >60 Normal >60 [facility] Comment on above: Performed By: #### T YS #### [facility] [address] [place] [address] Cartography Professor: Tre Ferrell MD Glucose [Mass/Vol] 121 mg/dL High 70-99 [facility] Comment on above: Performed By: #### T YS #### [address] [address] Cartography Professor: Tre Ferrell MD Potassium [Moles/Vol] 4.1 mmol/L Normal 3.7-5.3 [facility] Comment on above: Performed By: #### T YS #### [address] [address] Cartography Professor: Tre Ferrell MD Sodium [Moles/Vol] 141 mmol/L Normal 135-144 [facility] Comment on above: Performed By: #### T YS #### [facility] [address] [place] [address] Cartography Professor: Tre Ferrell MD Urea nitrogen [Mass/Vol] 10 mg/dL Normal 8-23 [facility] Comment on above: Performed By: #### T YS #### [facility] [address] [place] [address] Cartography Professor: Tre Ferrell MD BUN/CRE Ratio NOT REPORTED Normal -20 [facility] Comment on above: Performed By: #### T YS #### [address] [address] Cartography Professor: Tre Ferrell MD Staging: NOT REPORTED Normal [facility] Comment on above: Performed By: #### T YS #### [address] [address] Cartography Professor: Tre Ferrell MD CBCon 09-28-2019 Erythrocyte distribution width (RBC) [Ratio] 12.7 % Normal 11.8-14.4 [facility] Comment on above: Performed By: #### T YS #### [address] [address] Cartography Professor: Tre Ferrell MD Hematocrit (Bld) [Volume fraction] 32.0 % Low 40.7-50.3 [facility] Comment on above: Performed By: #### T YS #### [address] [address] Cartography Professor: Tre Ferrell MD Hemoglobin (Bld) [Mass/Vol] 10.2 g/dL Low 13.0-17.0 [facility] Comment on above: Performed By: #### T YS #### [address] [address] Cartography Professor: Tre Ferrell MD MCH (RBC) [Entitic mass] 29.7 pg Normal 25.2-33.5 [facility] Comment on above: Performed By: #### T YS #### [address] [address] Cartography Professor: Tre Ferrell MD MCHC (RBC) [Mass/Vol] 31.9 g/dL Normal 28.4-34.8 [facility] Comment on above: Performed By: #### T YS #### [address] [address] Cartography Professor: Tre Ferrell MD MCV (RBC) [Entitic vol] 93.0 fL Normal 82.6-102.9 [facility] Comment on above: Performed By: #### T YS #### [address] [place] [address] Cartography Professor: Tre Ferrell MD NRBC Automated 0.0 per 100 WBC Normal 0.0 [facility] Comment on above: Performed By: #### T YS #### [address] [address] Cartography Professor: Tre Ferrell MD Platelet mean volume (Bld) [Entitic vol] 10.4 fL Normal 8.1-13.5 [facility] Comment on above: Performed By: #### T YS #### [address] [address] Cartography Professor: Tre Ferrell MD Platelets (Bld) [#/Vol] 173 10*3/uL Normal 138-453 [facility] Comment on above: Performed By: #### T YS #### [address] [address] Cartography Professor: Tre Ferrell MD RBC (Bld) [#/Vol] 3.44 10*6/uL Low 4.21-5.77 [facility] Comment on above: Performed By: #### T YS #### [address] [address] Cartography Professor: Tre Ferrell MD WBC (Bld) [#/Vol] 7.2 10*3/uL Normal 3.5-11.3 [facility] Comment on above: Performed By: #### T YS #### [address] [address] Cartography Professor: Tre Ferrell MD Erythrocyte distribution width (RBC) [Ratio] 12.7 % 11.8 - 14.4 % [place] Hematocrit (Bld) [Volume fraction] 32.0 % Low 40.7 - 50.3 % [place] Hemoglobin (Bld) [Mass/Vol] 10.2 g/dL Low 13 - 17 g/dL [place] Interpretation and review of laboratory results Abnormal [place] MCH (RBC) [Entitic mass] 29.7 pg 25.2 - 33.5 pg [place] MCHC (RBC) [Mass/Vol] 31.9 g/dL 28.4 - 34.8 g/dL [place] MCV (RBC) [Entitic vol] 93.0 fL 82.6 - 102.9 fL [place] Platelet mean volume (Bld) [Entitic vol] 10.4 fL 8.1 - 13.5 fL [place] Platelets (Bld) [#/Vol] 173 10*3/uL [place] RBC (Bld) [#/Vol] 3.44 10*6/uL Low 4.21 - 5.7 7 m/uL [place] WBC (Bld) [#/Vol] 7.2 10*3/uL [place] WBC (Bld) [#/Vol] 0.0 10*3/uL 0.0 per 10 0 WBC [place] MAGNESIUMon 09-28-2019 Magnesium [Mass/Vol] 1.9 mg/dL 1.6 - 2 .6 mg/dL [place] Magnesiumon 09-28-2019 Magnesium [Mass/Vol] 1.9 mg/dL Normal 1.6-2.6 [facility] Comment on above: Performed By: #### T YS #### [facility] [address] [place] [address] Cartography Professor: Tre Ferrell MD PHOSPHORUSon 09-28-2019 Phosphate [Mass/Vol] 3.8 mg/dL 2.5 - 4 .5 mg/dL [place] POC Glucose Fingerstickon Glucose [Mass/Vol] 111 mg/dL High 75 - 110 mg/dL [place] Interpretation and review of laboratory results Abnormal [place] Glucose [Mass/Vol] 143 mg/dL High 75 - 110 mg/dL [place] Interpretation and review of laboratory results Abnormal [place] Glucose [Mass/Vol] 141 mg/dL High 75 - 110 mg/dL [place] Interpretation and review of laboratory results Abnormal [place] Glucose [Mass/Vol] 106 mg/dL 75 - 110 mg/dL [place] PROTIME-INRon 09-28-2019 INR Coag (PPP) [Relative time] 0.9 {INR} [place] Comment on above: Therapeutic Range: Moderate Anticoagulant Intensity: INR = 2.0-3.0 High Anticoagulant Intensity: INR = 2.5-3.5 PT Coag (PPP) [Time] 9.8 s [place] PTon 09-28-2019 INR Coag (PPP) [Relative time] 0.9 {INR} Normal [facility] Comment on above: Result Comment: Therapeutic Range: Moderate Anticoagulant Intensity: INR = 2.0-3.0 High Anticoagulant Intensity: INR = 2.5-3.5 Performed By: #### T YS #### [employer] [address] [place] [address] Cartography Professor: Tre Ferrell MD PT Coag (PPP) [Time] 9.8 s Normal 9.0-12.0 [facility] Comment on above: Performed By: #### T YS #### [employer] [address] [place] [address] Cartography Professor: Tre Ferrell MD Phosphorus, Inorg.on 020 Phosphorus, Inorg. 3.8 mg/dL Normal 2.5-4.5 [facility] Comment on above: Performed By: #### T YS #### [facility] [address] [place] [address] Cartography Professor: Tre Ferrell MD Basic Metab w/rfx MGon 09-26 (cont.) Normal [facility] Comment on above: Result Comment: Aver age GFR for 60-69 years old: 85 mL/min/1.73sq m Chronic Kidney Disease: <60 mL/min/1.73sq m Kidney failure: <15 mL/min/1.73sq m eGFR calculated using average adult body mass. Additional eGFR calculator available at: http://www.[employer]/multiple_crcl_2012.htm Performed By: #### T YS #### [address] [address] Cartography Professor: Tre Ferrell MD Anion gap [Moles/Vol] 9 mmol/L Normal 9-17 [facility] Comment on above: Performed By: #### T YS #### [address] [address] Cartography Professor: Tre Ferrell MD Calcium [Mass/Vol] 8.1 mg/dL Low 8.6-10.4 [facility] Comment on above: Performed By: #### T YS #### [address] [address] Cartography Professor: Tre Ferrell MD Chloride [Moles/Vol] 106 mmol/L Normal 98-107 [facility] Comment on above: Performed By: #### T YS #### [address] [address] Cartography Professor: Tre Ferrell MD CO2 [Moles/Vol] 27 mmol/L Normal 20-31 [facility] Comment on above: Performed By: #### T YS #### [address] [address] Cartography Professor: Tre Ferrell MD Creatinine [Mass/Vol] 0.63 mg/dL Low 0.70-1.20 [facility] Comment on above: Performed By: #### T YS #### [address] [address] Cartography Professor: Tre Ferrell MD GFR, Amer >60 Normal >60 [facility] Comment on above: Performed By: #### T YS #### [facility] [place] [address] Cartography Professor: Tre Ferrell MD GFR,non Amer >60 Normal >60 [facility] Comment on above: Performed By: #### T YS #### [address] [address] Cartography Professor: Tre Ferrell MD Glucose [Mass/Vol] 108 mg/dL High 70-99 [facility] Comment on above: Performed By: #### T YS #### [address] [address] Cartography Professor: Tre Ferrell MD Potassium [Moles/Vol] 3.9 mmol/L Normal 3.7-5.3 [facility] Comment on above: Performed By: #### T YS #### [address] [address] Cartography Professor: Tre Ferrell MD Sodium [Moles/Vol] 142 mmol/L Normal 135-144 [facility] Comment on above: Performed By: #### T YS #### [facility] [address] [place] [address] Cartography Professor: Tre Ferrell MD Urea nitrogen [Mass/Vol] 10 mg/dL Normal 8-23 [facility] Comment on above: Performed By: #### T YS #### [address] [address] Cartography Professor: Tre Ferrell MD BUN/CRE Ratio NOT REPORTED Normal 9-20 [facility] Comment on above: Performed By: #### T YS #### [facility] [address] [place] [address] Cartography Professor: Tre Ferrell MD Staging: NOT REPORTED Normal [facility] Comment on above: Performed By: #### T YS #### [facility] [address] [place] [address] Cartography Professor: Tre Ferrell MD Basic Metabolic Panel w/ Ref kylee to on 09-27-2019 Anion gap [Moles/Vol] 9 mmol/L 9 - 17 mmol/L [place] Bun/Cre Ratio NOT REPORTED [place] Calcium [Mass/Vol] 8.1 mg/dL Low 8.6 - 10. 4 mg/dL [place] Chloride [Moles/Vol] 106 mmol/L 98 - 10 7 mmol/L [place] CO2 [Moles/Vol] 27 mmol/L 20 - 31 mmol/L [place] Creatinine [Mass/Vol] 0.63 mg/dL Low 0.7 - 1.2 mg/dL [place] GFR >60 >60 mL/min [place] GFR Non- >60 >60 mL/min [place] GFR/1.73 sq M predicted among non-blacks MDRD (S/P/Bld) [Vol rate/Area] NOT REPORTED [place] GFR/1.73 sq M predicted among non-blacks MDRD (S/P/Bld) [Vol rate/Area] [place] Comment on above: Average GFR for 60-6 9 years old: 85 mL/min/1.73sq m Chronic Kidney Disease: <60 mL/min/1.73sq m Kidney failure: <15 mL/min/1.73sq m eGFR calculated using average adult body mass. Additional eGFR calculator available at: http://www.[employer]/multiple_crcl_2012.htm Glucose [Mass/Vol] 108 mg/dL High 70 - 99 mg/dL [place] Interpretation and review of laboratory results Abnormal [place] Potassium [Moles/Vol] 3.9 mmol/L 3.7 - 5.3 mmol/L [place] Sodium [Moles/Vol] 142 mmol/L 135 - 144 mmol/L [place] Urea nitrogen [Mass/Vol] 10 mg/dL 8 - 23 mg/dL [place] CBC WITH AUTO DIFFERENTIALon 09-27-2019 Basophils (Bld) [#/Vol] 10*3/uL [place] Basophils/100 WBC (Bld) 0 % 0 - 2 % [place] Differential Type NOT REPORTED [place] Eosinophils (Bld) [#/Vol] 0.15 10*3/uL [place] Eosinophils/100 WBC (Bld) 2 % 1 - 4 % [place] Erythrocyte distribution width (RBC) [Ratio] 13.1 % 11.8 - 14.4 % [place] Hematocrit (Bld) [Volume fraction] 30.9 % Low 40.7 - 50.3 % [place] Hemoglobin (Bld) [Mass/Vol] 9.7 g/dL Low 13 - 17 g/dL [place] Immature granulocytes (Bld) [#/Vol] 0 % 0 [place] Immature granulocytes (Bld) [#/Vol] 0.03 10*3/uL [place] Interpretation and review of laboratory results Abnormal [place] Lymphocytes (Bld) [#/Vol] 1.52 10*3/uL [place] Lymphocytes/100 WBC (Bld) 16 % Low 24 - 43 % [place] MCH (RBC) [Entitic mass] 29.0 pg 25.2 - 33.5 pg [place] MCHC (RBC) [Mass/Vol] 31.4 g/dL 28.4 - 34.8 g/dL [place] MCV (RBC) [Entitic vol] 92.5 fL 82.6 - 102.9 fL [place] Monocytes (Bld) [#/Vol] 0.93 10*3/uL [place] Monocytes/100 WBC (Bld) 10 % 3 - 12 % [place] Platelet mean volume (Bld) [Entitic vol] 10.4 fL 8.1 - 13.5 fL [place] Platelets (Bld) [#/Vol] 144 10*3/uL [place] Platelets (Bld) [#/Vol] NOT REPORTED [place] RBC (Bld) [#/Vol] 3.34 10*6/uL Low 4.21 - 5.7 7 m/uL [place] RBC morphology finding Nom (Bld) NOT REPORTED [place] Segmented neutrophils/100 WBC (Bld) 72 % High 36 - 65 % [place] Segs Absolute 6.64 [place] WBC (Bld) [#/Vol] 0.0 10*3/uL 0.0 per 10 0 WBC [place] WBC (Bld) [#/Vol] 9.3 10*3/uL [place] WBC Morphology NOT REPORTED [place] CBC with Diffon 09-27-2019 Abs. Basophil <0.03 Normal 0.00-0.20 [facility] Comment on above: Performed By: #### T YS #### [address] [address] Cartography Professor: Tre Ferrell MD Abs.Imm.Granulocyte 0.03 k/uL Normal 0.00-0.30 [facility] Comment on above: Performed By: #### T YS #### [address] [address] Cartography Professor: Tre Ferrell MD Abs.Neutrophil (Seg) 6.64 k/uL Normal 1.50-8.10 [facility] Comment on above: Performed By: #### T YS #### [address] [address] Cartography Professor: Tre Ferrell MD Basophils/100 WBC (Bld) 0 % Normal 0-2 [facility] Comment on above: Performed By: #### T YS #### [address] [address] Cartography Professor: Tre Ferrell MD Eosinophils (Bld) [#/Vol] 0.15 10*3/uL Normal 0.00-0.44 [facility] Comment on above: Performed By: #### T YS #### [address] [address] Cartography Professor: Tre Ferrell MD Eosinophils/100 WBC (Bld) 2 % Normal 1-4 [facility] Comment on above: Performed By: #### T YS #### [address] [address] Cartography Professor: Tre Ferrell MD Erythrocyte distribution width (RBC) [Ratio] 13.1 % Normal 11.8-14.4 [facility] Comment on above: Performed By: #### T YS #### [place] [address] Cartography Professor: Tre Ferrell MD Hematocrit (Bld) [Volume fraction] 30.9 % Low 40.7-50.3 [facility] Comment on above: Performed By: #### T YS #### [place] [address] Cartography Professor: Tre Ferrell MD Hemoglobin (Bld) [Mass/Vol] 9.7 g/dL Low 13.0-17.0 [facility] Comment on above: Performed By: #### T YS #### [place] [address] Cartography Professor: Tre Ferrell MD Immature granulocytes (Bld) [#/Vol] 0 % Normal 0 [facility] Comment on above: Performed By: #### T YS #### [place] [address] Cartography Professor: Tre Ferrell MD Lymphocytes (Bld) [#/Vol] 1.52 10*3/uL Normal 1.10-3.70 [facility] Comment on above: Performed By: #### T YS #### [address] [address] Cartography Professor: Tre Ferrell MD Lymphocytes/100 WBC (Bld) 16 % Low 24-43 [facility] Comment on above: Performed By: #### T YS #### [address] [address] Cartography Professor: Tre Ferrell MD MCH (RBC) [Entitic mass] 29.0 pg Normal 25.2-33.5 [facility] Comment on above: Performed By: #### T YS #### [address] [address] Cartography Professor: Tre Ferrell MD MCHC (RBC) [Mass/Vol] 31.4 g/dL Normal 28.4-34.8 [facility] Comment on above: Performed By: #### T YS #### [address] [address] Cartography Professor: Tre Ferrell MD MCV (RBC) [Entitic vol] 92.5 fL Normal 82.6-102.9 [facility] Comment on above: Performed By: #### T YS #### [address] [address] Cartography Professor: Tre Ferrell MD Monocytes (Bld) [#/Vol] 0.93 10*3/uL Normal 0.10-1.20 [facility] Comment on above: Performed By: #### T YS #### [address] [address] Cartography Professor: Tre Ferrell MD Monocytes/100 WBC (Bld) 10 % Normal 3-12 [facility] Comment on above: Performed By: #### T YS #### [address] [address] Cartography Professor: Tre Ferrell MD Neutrophil (Seg) 72 % High 36-65 [facility] Comment on above: Performed By: #### T YS #### [address] [address] Cartography Professor: Tre Ferrell MD NRBC Automated 0.0 per 100 WBC Normal 0.0 [facility] Comment on above: Performed By: #### T YS #### [address] [address] Cartography Professor: Tre Ferrell MD Platelet mean volume (Bld) [Entitic vol] 10.4 fL Normal 8.1-13.5 [facility] Comment on above: Performed By: #### T YS #### [address] [address] Cartography Professor: Tre Ferrell MD Platelets (Bld) [#/Vol] 144 10*3/uL Normal 138-453 [facility] Comment on above: Performed By: #### T YS #### [address] [address] Cartography Professor: Tre Ferrell MD RBC (Bld) [#/Vol] 3.34 10*6/uL Low 4.21-5.77 [facility] Comment on above: Performed By: #### T YS #### [address] [address] Cartography Professor: Tre Ferrell MD WBC (Bld) [#/Vol] 9.3 10*3/uL Normal 3.5-11.3 [facility] Comment on above: Performed By: #### T YS #### [address] [address] Cartography Professor: Tre Ferrell MD Auto Diff Performed NOT REPORTED Normal [facility] Comment on above: Performed By: #### T YS #### [facility] [address] [place] [address] Cartography Professor: Tre Ferrell MD Platelets (Bld) [#/Vol] NOT REPORTED Normal [facility] Comment on above: Performed By: #### T YS #### [facility] [address] [place] [address] Cartography Professor: Tre Ferrell MD RBC morphology finding Nom (Bld) NOT REPORTED Normal [facility] Comment on above: Performed By: #### T YS #### [facility] [address] [place] [address] Cartography Professor: Tre Fererll MD WBC Morphology NOT REPORTED Normal [facility] Comment on above: Performed By: #### T YS #### [address] [place] [address] Cartography Professor: Tre Ferrell MD POC Glucose Fingerstickon Glucose [Mass/Vol] 151 mg/dL High 75 - 110 mg/dL [place] Interpretation and review of laboratory results Abnormal [place] Glucose [Mass/Vol] 93 mg/dL 75 - 110 mg/dL [place] XR CHEST PORTABLEon 09-27-19 20 XR CHEST PORTABLE EXAMINATION: ONE XRAY VIEW OF THE CHEST 09/27/2019 7:18 am COMPARISON: AP chest from 09/26/2019 HISTORY: ORDERING SYSTEM PROVIDED HISTORY: intubated TECHNOLOGIST PROVIDED HISTORY: intubated Reason for Exam: intubated Postop cervical fusion FINDINGS: Fishtail and cervical hardware again demonstrated; ETT has [...] Karan Palomo MD 09/27/19 Final result Normal [facility] Interval extubation. Enteric tube stable. Elevation right hemidiaphragm with some opacity medial right base; consider atelectasis; aspiration/pneumonia should also be considered. [place] EXAMINATION: ONE XRAY VIEW OF THE [...] large pleural effusion or pneumothorax. Bones unchanged. [place] Samm, [facility] Incoming Radiant Results From [facility] - 09/27/2019 8:29 AM EDT EXAMINATION: ONE [...] consider atelectasis; aspiration/pneumonia should also be considered. [place] Arterial Blood Gas, POCon Mino Test NOT REPORTED [place] aPTT Coag (Bld) [Time] NOT REPORTED [place] FIO2 30.0 [place] Mode NOT REPORTED [place] Negative Base Excess, Art NOT REPORTED [place] O2 Device/Flow/% Adult Ventilator Me [place] Oxygen saturation in Blood 97 % 94 - 98 % [place] POC HCO3 31.2 mmol/L High 21 - 28 mmol/L [place] POC pCO2 49.1 High [place] POC pCO2 Temp NOT REPORTED mm Hg [place], [place] POC pH 7.411 [place] POC pH Temp NOT REPORTED [place] POC PO2 88.2 [place] POC pO2 Temp NOT REPORTED mm Hg [place] Positive Base Excess, Art 6 High [place] Sample Site Arterial Line [place] TCO2 (calc), Art 33 mmol/L High 22 - 29 mmol/L [place] Mino Test NOT REPORTED [place] aPTT Coag (Bld) [Time] NOT REPORTED [place] FIO2 30.0 [place] Mode NOT REPORTED [place] Negative Base Excess, Art NOT REPORTED [place] O2 Device/Flow/% Adult Ventilator [place] Oxygen saturation in Blood 98 % 94 - 98 % [place] POC HCO3 29.8 mmol/L High 21 - 28 mmol/L [place] POC pCO2 46.0 [place] POC pCO2 Temp NOT REPORTED mm Hg [place] POC pH 7.420 [place] POC pH Temp NOT REPORTED [place] POC PO2 112.3 High [place] POC pO2 Temp NOT REPORTED mm Hg [place] Positive Base Excess, Art 5 High [place], [place] Sample Site Arterial Line [place] TCO2 (calc), Art 31 mmol/L High 22 - 29 mmol/L [place] Basic Metab w/rfx MGon 09-25 (cont.) Normal [facility] Comment on above: Result Comment: Aver age GFR for 60-69 years old: 85 mL/min/1.73sq m Chronic Kidney Disease: <60 mL/min/1.73sq m Kidney failure: <15 mL/min/1.73sq m eGFR calculated using average adult body mass. Additional eGFR calculator available at: http://www.[employer]/multiple_crcl_2012.htm Performed By: #### E RTPF #### [address] [address] Cartography Professor: Tre Ferrell MD Anion gap [Moles/Vol] 9 mmol/L Normal 9-17 [facility] Comment on above: Performed By: #### E RTPF #### [address] [address] Cartography Professor: Tre Ferrlel MD Calcium [Mass/Vol] 8.2 mg/dL Low 8.6-10.4 [facility] Comment on above: Performed By: #### E RTPF #### [address] [address] Cartography Professor: Tre Ferrell MD Chloride [Moles/Vol] 103 mmol/L Normal 98-107 [facility] Comment on above: Performed By: #### E RTPF #### [address] [address] Cartography Professor: Tre Ferrell MD CO2 [Moles/Vol] 26 mmol/L Normal 20-31 [facility] Comment on above: Performed By: #### E RTPF #### [address] [address] Cartography Professor: Tre Ferrell MD Creatinine [Mass/Vol] 0.60 mg/dL Low 0.70-1.20 [facility] Comment on above: Performed By: #### E RTPF #### [address] [address] Cartography Professor: Tre Ferrell MD GFR, Amer >60 Normal >60 [facility] Comment on above: Performed By: #### E RTPF #### [address] [address] Cartography Professor: Tre Ferrell MD GFR,non Amer >60 Normal >60 [facility] Comment on above: Performed By: #### E RTPF #### [address] [address] Cartography Professor: Tre Ferrell MD Glucose [Mass/Vol] 158 mg/dL High 70-99 [facility] Comment on above: Performed By: #### E RTPF #### [address] [address] Cartography Professor: Tre Ferrell MD Potassium [Moles/Vol] 4.0 mmol/L Normal 3.7-5.3 [facility] Comment on above: Performed By: #### E RTPF #### [address] [address] Cartography Professor: Tre Ferrell MD Sodium [Moles/Vol] 138 mmol/L Normal 135-144 [facility] Comment on above: Performed By: #### E RTPF #### [address] [address] Cartography Professor: Tre Ferrell MD Urea nitrogen [Mass/Vol] 10 mg/dL Normal 8-23 [facility] Comment on above: Performed By: #### E RTPF #### [address] [address] Cartography Professor: Tre Ferrell MD BUN/CRE Ratio NOT REPORTED Normal 9-20 [facility] Comment on above: Performed By: #### E RTPF #### [address] [address] Cartography Professor: Tre Ferrell MD Staging: NOT REPORTED Normal [facility] Comment on above: Performed By: #### E RTPF #### [facility] [address] [place] [address] Cartography Professor: Tre Ferrell MD Basic Metabolic Panel w/ Ref kylee to MGon 09-26-2019 Anion gap [Moles/Vol] 9 mmol/L 9 - 17 mmol/L [place] Bun/Cre Ratio NOT REPORTED [place] Calcium [Mass/Vol] 8.2 mg/dL Low 8.6 - 10. 4 mg/dL [place] Chloride [Moles/Vol] 103 mmol/L 98 - 10 7 mmol/L [place] CO2 [Moles/Vol] 26 mmol/L 20 - 31 mmol/L [place] Creatinine [Mass/Vol] 0.6 mg/dL Low 0.7 - 1.2 mg/dL [place] GFR >60 >60 mL/min [place] GFR Non- >60 >60 mL/min [place] GFR/1.73 sq M predicted among non-blacks MDRD (S/P/Bld) [Vol rate/Area] [place] Comment on above: Average GFR for 60-6 9 years old: 85 mL/min/1.73sq m Chronic Kidney Disease: <60 mL/min/1.73sq m Kidney failure: <15 mL/min/1.73sq m eGFR calculated using average adult body mass. Additional eGFR calculator available at: http://www.[employer]/multiple_crcl_2012.htm GFR/1.73 sq M predicted among non-blacks MDRD (S/P/Bld) [Vol rate/Area] NOT REPORTED [place] Glucose [Mass/Vol] 158 mg/dL High 70 - 99 mg/dL [place] Interpretation and review of laboratory results Abnormal [place] Potassium [Moles/Vol] 4.0 mmol/L 3.7 - 5.3 mmol/L [place] Sodium [Moles/Vol] 138 mmol/L 135 - 144 mmol/L [place] Urea nitrogen [Mass/Vol] 10 mg/dL 8 - 23 mg/dL [place] CBC WITH AUTO DIFFERENTIALon 09-26-2019 Basophils (Bld) [#/Vol] 0.03 10*3/uL [place] Basophils/100 WBC (Bld) 0 % 0 - 2 % [place] Differential Type NOT REPORTED [place] Eosinophils (Bld) [#/Vol] 0.08 10*3/uL [place] Eosinophils/100 WBC (Bld) 1 % 1 - 4 % [place] Erythrocyte distribution width (RBC) [Ratio] 13.2 % 11.8 - 14.4 % [place] Hematocrit (Bld) [Volume fraction] 30.7 % Low 40.7 - 50.3 % [place] Hemoglobin (Bld) [Mass/Vol] 9.6 g/dL Low 13 - 17 g/dL [place] Immature granulocytes (Bld) [#/Vol] 0.04 10*3/uL [place] Immature granulocytes (Bld) [#/Vol] 1 % High 0 [place] Interpretation and review of laboratory results Abnormal [place] Lymphocytes (Bld) [#/Vol] 1.10 10*3/uL [place] Lymphocytes/100 WBC (Bld) 14 % Low 24 - 43 % [place] MCH (RBC) [Entitic mass] 29.2 pg 25.2 - 33.5 pg [place] MCHC (RBC) [Mass/Vol] 31.3 g/dL 28.4 - 34.8 g/dL [place] MCV (RBC) [Entitic vol] 93.3 fL 82.6 - 102.9 fL [place] Monocytes (Bld) [#/Vol] 0.81 10*3/uL [place] Monocytes/100 WBC (Bld) 10 % 3 - 12 % [place] Platelet mean volume (Bld) [Entitic vol] NOT REPORTED 8.1 - 13.5 fL [place] Platelets (Bld) [#/Vol] NOT REPORTED [place] Platelets (Bld) [#/Vol] See Reflexed IPF Result [place] RBC (Bld) [#/Vol] 3.29 10*6/uL Low 4.21 - 5.7 7 m/uL [place] RBC morphology finding Nom (Bld) NOT REPORTED [place] Segmented neutrophils/100 WBC (Bld) 74 % High 36 - 65 % [place] Segs Absolute 5.82 [place] WBC (Bld) [#/Vol] 7.9 10*3/uL [place] WBC (Bld) [#/Vol] 0.0 10*3/uL 0.0 per 10 0 WBC [place] WBC Morphology NOT REPORTED [place] CBC with Diffon 09-26-2019 Abs. Basophil 0.03 k/uL Normal 0.00-0.20 [facility] Comment on above: Performed By: #### E RTPF #### [place] [address] Cartography Professor: Tre Ferrell MD Abs.Imm.Granulocyte 0.04 k/uL Normal 0.00-0.30 [facility] Comment on above: Performed By: #### E RTPF #### [facility] [address] [place] [address] Cartography Professor: Tre Ferrell MD Abs.Neutrophil (Seg) 5.82 k/uL Normal 1.50-8.10 [facility] Comment on above: Performed By: #### E RTPF #### [address] [address] Cartography Professor: Tre Ferrell MD Basophils/100 WBC (Bld) 0 % Normal 0-2 [facility] Comment on above: Performed By: #### E RTPF #### [address] [address] Cartography Professor: Tre Ferrell MD Eosinophils (Bld) [#/Vol] 0.08 10*3/uL Normal 0.00-0.44 [facility] Comment on above: Performed By: #### E RTPF #### [place] [address] Cartography Professor: Tre Ferrell MD Eosinophils/100 WBC (Bld) 1 % Normal 1-4 [facility] Comment on above: Performed By: #### E RTPF #### [place] [address] Cartography Professor: Tre Ferrell MD Erythrocyte distribution width (RBC) [Ratio] 13.2 % Normal 11.8-14.4 [facility] Comment on above: Performed By: #### E RTPF #### [place] [address] Cartography Professor: Tre Ferrell MD Hematocrit (Bld) [Volume fraction] 30.7 % Low 40.7-50.3 [facility] Comment on above: Performed By: #### E RTPF #### [place] [address] Cartography Professor: Tre Ferrell MD Hemoglobin (Bld) [Mass/Vol] 9.6 g/dL Low 13.0-17.0 [facility] Comment on above: Performed By: #### E RTPF #### [address] [address] Cartography Professor: Tre Ferrell MD Immature granulocytes (Bld) [#/Vol] 1 % High 0 [facility] Comment on above: Performed By: #### E RTPF #### [address] [address] Cartography Professor: Tre Ferrell MD Lymphocytes (Bld) [#/Vol] 1.10 10*3/uL Normal 1.10-3.70 [facility] Comment on above: Performed By: #### E RTPF #### [address] [address] Cartography Professor: Tre Ferrell MD Lymphocytes/100 WBC (Bld) 14 % Low 24-43 [facility] Comment on above: Performed By: #### E RTPF #### [place] [address] Cartography Professor: Tre Ferrell MD MCH (RBC) [Entitic mass] 29.2 pg Normal 25.2-33.5 [facility] Comment on above: Performed By: #### E RTPF #### [place] [address] Cartography Professor: Tre Ferrell MD MCHC (RBC) [Mass/Vol] 31.3 g/dL Normal 28.4-34.8 [facility] Comment on above: Performed By: #### E RTPF #### [place] [address] Cartography Professor: Tre Ferrell MD MCV (RBC) [Entitic vol] 93.3 fL Normal 82.6-102.9 [facility] Comment on above: Performed By: #### E RTPF #### [address] [address] Cartography Professor: Tre Ferrell MD Monocytes (Bld) [#/Vol] 0.81 10*3/uL Normal 0.10-1.20 [facility] Comment on above: Performed By: #### E RTPF #### [place] [address] Cartography Professor: Tre Ferrell MD Monocytes/100 WBC (Bld) 10 % Normal 3-12 [facility] Comment on above: Performed By: #### E RTPF #### [address] [address] Cartography Professor: Tre Ferrell MD Neutrophil (Seg) 74 % High 36-65 [facility] Comment on above: Performed By: #### E RTPF #### [address] [address] Cartography Professor: Tre Ferrell MD NRBC Automated 0.0 per 100 WBC Normal 0.0 [facility] Comment on above: Performed By: #### E RTPF #### [address] [address] Cartography Professor: Tre Ferrell MD Platelets (Bld) [#/Vol] See Reflexed IPF Result Normal 138-453 [facility] Comment on above: Performed By: #### E RTPF #### [address] [address] Cartography Professor: Tre Ferrell MD RBC (Bld) [#/Vol] 3.29 10*6/uL Low 4.21-5.77 [facility] Comment on above: Performed By: #### E RTPF #### [address] [address] Cartography Professor: Tre Ferrell MD WBC (Bld) [#/Vol] 7.9 10*3/uL Normal 3.5-11.3 [facility] Comment on above: Performed By: #### E RTPF #### [address] [address] Cartography Professor: Tre Ferrell MD Auto Diff Performed NOT REPORTED Normal [facility] Comment on above: Performed By: #### E RTPF #### [facility] [place] [address] Cartography Professor: Tre Ferrell MD Platelet mean volume (Bld) [Entitic vol] NOT REPORTED Normal 8.1-13.5 [facility] Comment on above: Performed By: #### E RTPF #### [facility] [address] [place] [address] Cartography Professor: Tre Ferrell MD Platelets (Bld) [#/Vol] NOT REPORTED Normal [facility] Comment on above: Performed By: #### E RTPF #### [facility] [address] [place] [address] Cartography Professor: Tre Ferrell MD RBC morphology finding Nom (Bld) NOT REPORTED Normal [facility] Comment on above: Performed By: #### E RTPF #### [facility] [address] [place] [address] Cartography Professor: Tre Ferrell MD WBC Morphology NOT REPORTED Normal [facility] Comment on above: Performed By: #### E RTPF #### [address] [address] Cartography Professor: Tre Ferrell MD Extubationon 09-26-2019 Braden Ziegler RCP 09/26/2019 6:36 PM Order obtained for extubation. SpO2 of 30 on 100% FiO2. Patient extubated and placed on 30% O2 via HFNC. Patient had mild cough that was productive of clear and white sputum. Extubation Well tolerated by patient.. Breath Sounds: clear BRADEN ZIEGLER 6:35 PM [place] Immature Platelet Fractionon 09-26-2019 Interpretation and review of laboratory results Abnormal [place] Platelet, Fluorescence 123 Low Me [place], [place] Comment on above: ORDERED BY LAB Platelet, Immature Fraction 4.7 % 1.1 - 10.3 % [place] Comment on above: ORDERED BY LAB Lactic Acid, POCon 0 POC Lactic Acid 0.35 mmol/L Low 0.56 - 1.39 mmol/L [place] POC Lactic Acid 0.32 mmol/L Low 0.56 - 1.39 mmol/L [place] Otheron 09-26-2019 Interpretation and review of laboratory results Abnormal [place] Interpretation and review of laboratory results Abnormal [place] PLT, Immature Fract.on 09-25 Platelet, Fluoresc. 123 k/uL Low 138-453 [facility] Comment on above: Result Comment: ORDE RED BY LAB Performed By: #### E RTPF #### [facility] [address] [place], [place] [id number] Cartography Professor: Tre Ferrell MD PLT, Immature Fract. 4.7 % Normal 1.1-10.3 [facility] Comment on above: Result Comment: ORDE RED BY LAB Performed By: #### E RTPF #### [facility] [address] [place], [place] [id number] Cartography Professor: Tre Ferrell MD POC Glucose Fingerstickon Glucose [Mass/Vol] 88 mg/dL 75 - 110 mg/dL [place] Glucose [Mass/Vol] 122 mg/dL High 75 - 110 mg/dL [place] Interpretation and review of laboratory results Abnormal [place] Glucose [Mass/Vol] 124 mg/dL High 75 - 110 mg/dL [place] Interpretation and review of laboratory results Abnormal [place] POCT Glucoseon 09-26-2019 Glucose [Mass/Vol] 130 mg/dL High 74 - 100 mg/dL [place] Glucose [Mass/Vol] 156 mg/dL High 74 - 100 mg/dL [place] XR CHEST PORTABLEon 09-26-19 20 XR [...] Dewayne Lopez MD 09/26/19 Final result Normal [facility] No acute cardiopulmonary process. Stable support tubes. [place] Samm, [facility] Incoming Radiant Results From [employer] - 09/26/2019 10:01 AM EDT EXAMINATION: ONE [...] No acute cardiopulmonary process. Stable support tubes. [place] EXAMINATION: ONE XRAY VIEW OF THE [...] tube and the tip is not visualized. [place] Arterial Blood Gas, POCon Mino Test NOT REPORTED [place] aPTT Coag (Bld) [Time] NOT REPORTED [place] FIO2 30.0 [place] Mode NOT REPORTED [place] Negative Base Excess, Art NOT REPORTED [place] O2 Device/Flow/% Adult Ventilator Me [place] Oxygen saturation in Blood 98 % 94 - 98 % [place] POC HCO3 25.9 mmol/L 21 - 28 mmol/L [place] POC pCO2 45.8 [place] POC pCO2 Temp NOT REPORTED mm Hg [facility] [place] POC pH 7.361 [place] POC pH Temp NOT REPORTED [facility] [place] POC PO2 100.9 [place] POC pO2 Temp NOT REPORTED mm Hg [place] Positive Base Excess, Art 0 [place] Sample Site Arterial Line [place] TCO2 (calc), Art 27 mmol/L 22 - 29 mmol/L [place] Basic Metab w/rfx MGon 09-24 (cont.) Normal [facility] Comment on above: Result Comment: Aver age GFR for 60-69 years old: 85 mL/min/1.73sq m Chronic Kidney Disease: <60 mL/min/1.73sq m Kidney failure: <15 mL/min/1.73sq m eGFR calculated using average adult body mass. Additional eGFR calculator available at: http://www.[employer]/multiple_crcl_2012.htm Performed By: #### E RTPF #### [facility] [address] [place] [address] Cartography Professor: Tre Ferrell MD Anion gap [Moles/Vol] 11 mmol/L Normal 9-17 [facility] Comment on above: Performed By: #### E RTPF #### [facility] [address] [place] [phone] Cartography Professor: Tre Ferrell MD Calcium [Mass/Vol] 8.1 mg/dL Low 8.6-10.4 [facility] Comment on above: Performed By: #### E RTPF #### [facility] [address] [place] [id number] Cartography Professor: Tre Ferrell MD Chloride [Moles/Vol] 110 mmol/L High 98-107 [facility] Comment on above: Performed By: #### E RTPF #### [address] [address] Cartography Professor: Tre Ferrell MD CO2 [Moles/Vol] 21 mmol/L Normal 20-31 [facility] Comment on above: Performed By: #### E RTPF #### [address] [address] Cartography Professor: Tre Ferrell MD Creatinine [Mass/Vol] 0.73 mg/dL Normal 0.70-1.20 [facility] Comment on above: Performed By: #### E RTPF #### [address] [address] Cartography Professor: Tre Ferrell MD GFR, Amer >60 Normal >60 [facility] Comment on above: Performed By: #### E RTPF #### [address] [address] Cartography Professor: Tre Ferrell MD GFR,non Amer >60 Normal >60 [facility] Comment on above: Performed By: #### E RTPF #### [address] [address] Cartography Professor: Tre Ferrell MD Glucose [Mass/Vol] 134 mg/dL High 70-99 [facility] Comment on above: Performed By: #### E RTPF #### [address] [address] Cartography Professor: Tre Ferrell MD Potassium [Moles/Vol] 4.1 mmol/L Normal 3.7-5.3 [facility] Comment on above: Performed By: #### E RTPF #### [address] [address] Cartography Professor: Tre Ferrell MD Sodium [Moles/Vol] 142 mmol/L Normal 135-144 [facility] Comment on above: Performed By: #### E RTPF #### [facility] [address] [place] [address] Cartography Professor: Tre Ferrell MD Urea nitrogen [Mass/Vol] 13 mg/dL Normal 8-23 [facility] Comment on above: Performed By: #### E RTPF #### [facility] [address] [place] [address] Cartography Professor: Tre Ferrell MD BUN/CRE Ratio NOT REPORTED Normal 9-20 [facility] Comment on above: Performed By: #### E RTPF #### [facility] [address] [place] [address] Cartography Professor: Tre Ferrell MD Staging: NOT REPORTED Normal [facility] Comment on above: Performed By: #### E RTPF #### [facility] [address] [place] [address] Cartography Professor: Tre Ferrell MD Basic Metabolic Panel w/ Ref kylee to [facility] 09-25-2019 Anion gap [Moles/Vol] 11 mmol/L 9 - 17 mmol/L [place] Bun/Cre Ratio NOT REPORTED [place] Calcium [Mass/Vol] 8.1 mg/dL Low 8.6 - 10. 4 mg/dL [place] Chloride [Moles/Vol] 110 mmol/L High 98 - 10 7 mmol/L [place] CO2 [Moles/Vol] 21 mmol/L 20 - 31 mmol/L [place] Creatinine [Mass/Vol] 0.73 mg/dL 0.7 - 1.2 mg/dL [place] GFR >60 >60 mL/min [place] GFR Non- >60 >60 mL/min [place] GFR/1.73 sq M predicted among non-blacks MDRD (S/P/Bld) [Vol rate/Area] [place] Comment on above: Average GFR for 60-6 9 years old: 85 mL/min/1.73sq m Chronic Kidney Disease: <60 mL/min/1.73sq m Kidney failure: <15 mL/min/1.73sq m eGFR calculated using average adult body mass. Additional eGFR calculator available at: http://www.[employer]/multiple_crcl_2012.htm GFR/1.73 sq M predicted among non-blacks MDRD (S/P/Bld) [Vol rate/Area] NOT REPORTED [place] Glucose [Mass/Vol] 134 mg/dL High 70 - 99 mg/dL [place] Interpretation and review of laboratory results Abnormal [place] Potassium [Moles/Vol] 4.1 mmol/L 3.7 - 5.3 mmol/L [place] Sodium [Moles/Vol] 142 mmol/L 135 - 144 mmol/L [place] Urea nitrogen [Mass/Vol] 13 mg/dL 8 - 23 mg/dL [place] CBC WITH AUTO DIFFERENTIALon 09-25-2019 Basophils (Bld) [#/Vol] 10*3/uL [place] Basophils/100 WBC (Bld) 0 % 0 - 2 % [place] Differential Type NOT REPORTED [place] Eosinophils (Bld) [#/Vol] 10*3/uL [place] Eosinophils/100 WBC (Bld) 0 % Low 1 - 4 % [place] Erythrocyte distribution width (RBC) [Ratio] 13.5 % 11.8 - 14.4 % [place] Hematocrit (Bld) [Volume fraction] 32.9 % Low 40.7 - 50.3 % [place] Hemoglobin (Bld) [Mass/Vol] 10.1 g/dL Low 13 - 17 g/dL [place] Immature granulocytes (Bld) [#/Vol] 0.06 10*3/uL [place] Immature granulocytes (Bld) [#/Vol] 1 % High 0 [place] Interpretation and review of laboratory results Abnormal [place] Lymphocytes (Bld) [#/Vol] 1.20 10*3/uL [place] Lymphocytes/100 WBC (Bld) 12 % Low 24 - 43 % [place] MCH (RBC) [Entitic mass] 28.5 pg 25.2 - 33.5 pg [place] MCHC (RBC) [Mass/Vol] 30.7 g/dL 28.4 - 34.8 g/dL [place] MCV (RBC) [Entitic vol] 92.9 fL 82.6 - 102.9 fL [place] Monocytes (Bld) [#/Vol] 1.34 10*3/uL High [place] Monocytes/100 WBC (Bld) 14 % High 3 - 12 % [place] Platelet mean volume (Bld) [Entitic vol] NOT REPORTED 8.1 - 13.5 fL [place] Platelets (Bld) [#/Vol] See Reflexed IPF Result [place] Platelets (Bld) [#/Vol] NOT REPORTED [place] RBC (Bld) [#/Vol] 3.54 10*6/uL Low 4.21 - 5.7 7 m/uL [place] RBC morphology finding Nom (Bld) NOT REPORTED [place] Segmented neutrophils/100 WBC (Bld) 74 % High 36 - 65 % [place] Segs Absolute 7.33 [place] WBC (Bld) [#/Vol] 10.0 10*3/uL [place] WBC (Bld) [#/Vol] 0.0 10*3/uL 0.0 per 10 0 WBC [place] WBC Morphology NOT REPORTED [place] CBC with Diffon 09-25-2019 Abs. Basophil <0.03 Normal 0.00-0.20 [facility] Comment on above: Performed By: #### E RTPF #### [facility] [address] [place] [address] Cartography Professor: Tre Ferrell MD Abs.Imm.Granulocyte 0.06 k/uL Normal 0.00-0.30 [facility] Comment on above: Performed By: #### E RTPF #### [address] [address] Cartography Professor: Tre Ferrell MD Abs.Neutrophil (Seg) 7.33 k/uL Normal 1.50-8.10 [facility] Comment on above: Performed By: #### E RTPF #### [address] [address] Cartography Professor: Tre Ferrell MD Basophils/100 WBC (Bld) 0 % Normal 0-2 [facility] Comment on above: Performed By: #### E RTPF #### [address] [address] Cartography Professor: Tre Ferrell MD Eosinophils (Bld) [#/Vol] 10*3/uL Normal 0.00-0.44 [facility] Comment on above: Performed By: #### E RTPF #### [address] [address] Cartography Professor: Tre Ferrell MD Eosinophils/100 WBC (Bld) 0 % Low 1-4 [facility] Comment on above: Performed By: #### E RTPF #### [address] [address] Cartography Professor: Tre Ferrell MD Erythrocyte distribution width (RBC) [Ratio] 13.5 % Normal 11.8-14.4 [facility] Comment on above: Performed By: #### E RTPF #### [address] [address] Cartography Professor: Tre Ferrell MD Hematocrit (Bld) [Volume fraction] 32.9 % Low 40.7-50.3 [facility] Comment on above: Performed By: #### E RTPF #### [address] [address] Cartography Professor: Tre Ferrell MD Hemoglobin (Bld) [Mass/Vol] 10.1 g/dL Low 13.0-17.0 [facility] Comment on above: Performed By: #### E RTPF #### [address] [address] Cartography Professor: Tre Ferrell MD Immature granulocytes (Bld) [#/Vol] 1 % High 0 [facility] Comment on above: Performed By: #### E RTPF #### [address] [address] Cartography Professor: Tre Ferrell MD Lymphocytes (Bld) [#/Vol] 1.20 10*3/uL Normal 1.10-3.70 [facility] Comment on above: Performed By: #### E RTPF #### [address] [address] Cartography Professor: Tre Ferrell MD Lymphocytes/100 WBC (Bld) 12 % Low 24-43 [facility] Comment on above: Performed By: #### E RTPF #### [place] [address] Cartography Professor: Tre Ferrell MD MCH (RBC) [Entitic mass] 28.5 pg Normal 25.2-33.5 [facility] Comment on above: Performed By: #### E RTPF #### [address] [address] Cartography Professor: Tre Ferrell MD MCHC (RBC) [Mass/Vol] 30.7 g/dL Normal 28.4-34.8 [facility] Comment on above: Performed By: #### E RTPF #### [address] [address] Cartography Professor: Tre Ferrell MD MCV (RBC) [Entitic vol] 92.9 fL Normal 82.6-102.9 [facility] Comment on above: Performed By: #### E RTPF #### [address] [address] Cartography Professor: Tre Ferrell MD Monocytes (Bld) [#/Vol] 1.34 10*3/uL High 0.10-1.20 [facility] Comment on above: Performed By: #### E RTPF #### [address] [address] Cartography Professor: Tre Ferrlel MD Monocytes/100 WBC (Bld) 14 % High 3-12 [facility] Comment on above: Performed By: #### E RTPF #### [address] [address] Cartography Professor: Tre Ferrell MD Neutrophil (Seg) 74 % High 36-65 [facility] Comment on above: Performed By: #### E RTPF #### [address] [address] Cartography Professor: Tre Ferrell MD NRBC Automated 0.0 per 100 WBC Normal 0.0 [facility] Comment on above: Performed By: #### E RTPF #### [address] [address] Cartography Professor: Tre Ferrell MD Platelets (Bld) [#/Vol] See Reflexed IPF Result Normal 138-453 [facility] Comment on above: Performed By: #### E RTPF #### [address] [address] Cartography Professor: Tre Ferrell MD RBC (Bld) [#/Vol] 3.54 10*6/uL Low 4.21-5.77 [facility] Comment on above: Performed By: #### E RTPF #### [address] [address] Cartography Professor: Tre Ferrell MD WBC (Bld) [#/Vol] 10.0 10*3/uL Normal 3.5-11.3 [facility] Comment on above: Performed By: #### E RTPF #### [address] [address] Cartography Professor: Tre Ferrell MD Auto Diff Performed NOT REPORTED Normal [facility] Comment on above: Performed By: #### E RTPF #### [address] [address] Cartography Professor: Tre Ferrell MD Platelet mean volume (Bld) [Entitic vol] NOT REPORTED Normal 8.1-13.5 [facility] Comment on above: Performed By: #### E RTPF #### [address] [address] Cartography Professor: Tre Ferrell MD Platelets (Bld) [#/Vol] NOT REPORTED Normal [facility] Comment on above: Performed By: #### E RTPF #### [address] [address] Cartography Professor: Tre Ferrell MD RBC morphology finding Nom (Bld) NOT REPORTED Normal [facility] Comment on above: Performed By: #### E RTPF #### [address] [address] Cartography Professor: Tre Ferrell MD WBC Morphology NOT REPORTED Normal [facility] Comment on above: Performed By: #### E RTPF #### [address] [place] [address] Cartography Professor: Tre Ferrell MD Immature Platelet Fractionon 09-25-2019 Interpretation and review of laboratory results Abnormal [place] Platelet, Fluorescence [address] [place], [place] Comment on above: ORDERED BY LAB Platelet, Immature Fraction 4.3 % 1.1 - 10.3 % [place] Comment on above: ORDERED BY LAB Lactic Acid, POCon 0 POC Lactic Acid 0.68 mmol/L 0.56 - 1.39 mmol/L [place] PLT, Immature Fract.on 09-24 Platelet, Fluoresc. 129 k/uL Low 138-453 [facility] Comment on above: Result Comment: ORDE RED BY LAB Performed By: #### E RTPF #### [facility] [address] [place] [address] Cartography Professor: Tre Ferrell MD PLT, Immature Fract. 4.3 % Normal 1.1-10.3 [facility] Comment on above: Result Comment: ORDE RED BY LAB Performed By: #### E RTPF #### [address] [id number] Cartography Professor: Tre Ferrell MD XR CERVICAL SPINE (2-3 [...] Beverly Allen DO 09/25/19 Final result Normal [facility] Status post C3-C5 posterior decompression and fusion. [facility] [place] EXAMINATION: 2 XRAY VIEWS OF THE CERVICAL [...] C6-C7. Endotracheal and enteric tubes are noted. [facility] [place] Samm, Mhpn Incoming Radiant Results From [employer]come/Pacs - 09/25/2019 4:44 PM EDT EXAMINATION: 2 [...] Status post C3-C5 posterior decompression and fusion. [facility] [place] Arterial Blood Gas, POCon Mino Test NOT REPORTED [place] aPTT Coag (Bld) [Time] NOT REPORTED [facility] FIO2 30.0 [facility] [place] Mode PRVC [place] Negative Base Excess, Art NOT REPORTED [place] O2 Device/Flow/% Adult Ventilator [place] Oxygen saturation in Blood 97 % 94 - 98 % [place] POC HCO3 24.7 mmol/L 21 - 28 mmol/L [place] POC pCO2 41.7 [place] POC pCO2 Temp NOT REPORTED mm Hg [place] POC pH 7.381 [place] POC pH Temp NOT REPORTED [place] POC PO2 97.7 [place] POC pO2 Temp NOT REPORTED mm Hg [place] Positive Base Excess, Art 0 [place] Sample Site Arterial Line [place] TCO2 (calc), Art 26 mmol/L 22 - 29 mmol/L [place] Mino Test NOT REPORTED [place] aPTT Coag (Bld) [Time] NOT REPORTED [place] FIO2 60.0 [place] Mode PRVC [place] Negative Base Excess, Art 2 [place] O2 Device/Flow/% Adult Ventilator [place] Oxygen saturation in Blood 100 % High 94 - 98 % [place] POC HCO3 23.7 mmol/L 21 - 28 mmol/L [place] POC pCO2 45.3 [place] POC pCO2 Temp NOT REPORTED mm Hg [place] POC pH 7.327 Low [place] POC pH Temp NOT REPORTED [place] POC PO2 242.1 High [place] POC pO2 Temp NOT REPORTED mm Hg [place] Positive Base Excess, Art NOT REPORTED [place] Sample Site Arterial Line [place] TCO2 (calc), Art 25 mmol/L 22 - 29 mmol/L [place] Basic Metab w/rfx MGon 09-23 (cont.) Normal [facility] Comment on above: Result Comment: Aver age GFR for 60-69 years old: 85 mL/min/1.73sq m Chronic Kidney Disease: <60 mL/min/1.73sq m Kidney failure: <15 mL/min/1.73sq m eGFR calculated using average adult body mass. Additional eGFR calculator available at: http://www.[employer]/multiple_crcl_2012.htm Performed By: #### E RTPF #### [address] [address] Cartography Professor: Tre Ferrell MD GFR, Amer >60 Normal >60 [facility] Comment on above: Performed By: #### E RTPF #### [address] [address] Cartography Professor: Tre Ferrell MD GFR,non Amer >60 Normal >60 [facility] Comment on above: Performed By: #### E RTPF #### [address] [address] Cartography Professor: Tre Ferrell MD BUN/CRE Ratio NOT REPORTED Normal 9-20 [facility] Comment on above: Performed By: #### E RTPF #### [address] [address] Cartography Professor: Tre Ferrell MD Staging: NOT REPORTED Normal [facility] Comment on above: Performed By: #### E RTPF #### [address] [address] Cartography Professor: Tre Ferrell MD Calcium [Mass/Vol] 8.1 mg/dL Low 8.6-10.4 [place] Comment on above: Performed By: #### E RTPF #### [address] [address] Cartography Professor: Tre Ferrell MD CO2 [Moles/Vol] 21 mmol/L Normal 20-31 [place] Comment on above: Performed By: #### E RTPF #### [facility] [address] [place] [address] Cartography Professor: Tre Ferrell MD Creatinine [Mass/Vol] 0.64 mg/dL Low 0.70-1.20 [place] Comment on above: Performed By: #### E RTPF #### [facility] [address] [place] [address] Cartography Professor: Tre Ferrell MD Glucose [Mass/Vol] 154 mg/dL High 70-99 [place] Comment on above: Performed By: #### E RTPF #### [facility] [address] [place] [address] Cartography Professor: Tre Ferrell MD Potassium [Moles/Vol] 4.5 mmol/L Normal 3.7-5.3 [place] Comment on above: Performed By: #### E RTPF #### [address] [address] Cartography Professor: Tre Ferrell MD Sodium [Moles/Vol] 142 mmol/L Normal 135-144 [place] Comment on above: Performed By: #### E RTPF #### [address] [address] Cartography Professor: Tre Ferrell MD Urea nitrogen [Mass/Vol] 15 mg/dL Normal 8-23 [place] Comment on above: Performed By: #### E RTPF #### [facility] [address] [place] [address] Cartography Professor: Tre Ferrell MD Anion gap [Moles/Vol] 12 mmol/L Normal 9-17 [place] Comment on above: Performed By: #### E RTPF #### [facility] [address] [place] [address] Cartography Professor: Tre Ferrell MD Chloride [Moles/Vol] 109 mmol/L High 98-107 [place] Comment on above: Performed By: #### E RTPF #### [employer] [facility] [place] [address] Cartography Professor: Tre Ferrell MD Basic Metabolic Panel w/ Ref kylee to MGon 09-24-2019 Bun/Cre Ratio NOT REPORTED [place] GFR >60 >60 mL/min [place] GFR Non- >60 >60 mL/min [place] GFR/1.73 sq M predicted among non-blacks MDRD (S/P/Bld) [Vol rate/Area] [place] Comment on above: Average GFR for 60-6 9 years old: 85 mL/min/1.73sq m Chronic Kidney Disease: <60 mL/min/1.73sq m Kidney failure: <15 mL/min/1.73sq m eGFR calculated using average adult body mass. Additional eGFR calculator available at: http://www.[employer]/multiple_crcl_2012.htm GFR/1.73 sq M predicted among non-blacks MDRD (S/P/Bld) [Vol rate/Area] NOT REPORTED [place] Interpretation and review of laboratory results Abnormal [place] CALCIUM, IONIC (POC)on 09-23 POC Ionized Calcium 1.17 mmol/L 1.15 - 1 .33 mmol/L [place] CBCon 09-24-2019 Erythrocyte distribution width (RBC) [Ratio] 13.1 % Normal 11.8-14.4 [facility] Comment on above: Performed By: #### BRANDY Nunez DAU #### [facility] [place], [place] [phone] Cartography Professor: Tre Ferrell MD Hematocrit (Bld) [Volume fraction] 37.3 % Low 40.7-50.3 [facility] Comment on above: Performed By: #### BRANDY Nunez DAU #### [employer] [address] [place] [address] Cartography Professor: Tre Ferrell MD Hemoglobin (Bld) [Mass/Vol] 11.8 g/dL Low 13.0-17.0 [facility] Comment on above: Performed By: #### BRANDY Nunez DAU #### [facility] [address] [place] [address] Cartography Professor: Tre Ferrell MD MCH (RBC) [Entitic mass] 28.9 pg Normal 25.2-33.5 [facility] Comment on above: Performed By: #### BRANDY Nunez DAU #### [facility] [address] [place] [address] Cartography Professor: Tre Ferrell MD MCHC (RBC) [Mass/Vol] 31.6 g/dL Normal 28.4-34.8 [facility] Comment on above: Performed By: #### BRANDY Nunez DAU #### [address] [address] Cartography Professor: Tre Ferrell MD MCV (RBC) [Entitic vol] 91.4 fL Normal 82.6-102.9 [facility] Comment on above: Performed By: #### BRANDY Nunez DAU #### [address] [address] Cartography Professor: Tre Ferrell MD NRBC Automated 0.0 per 100 WBC Normal 0.0 [facility] Comment on above: Performed By: #### BRANDY Nunez DAU #### [address] [address] Cartography Professor: Tre Ferrell MD Platelets (Bld) [#/Vol] See Reflexed IPF Result Normal 138-453 [facility] Comment on above: Performed By: #### BRANDY Nunez DAU #### [address] [place] [address] [place], [place] [phone] Cartography Professor: Tre Ferrell MD RBC (Bld) [#/Vol] 4.08 10*6/uL Low 4.21-5.77 [facility] Comment on above: Performed By: #### BRANDY Nunez DAU #### [facility] [address] [place], [place] [phone] Cartography Professor: Tre Ferrell MD WBC (Bld) [#/Vol] 6.7 10*3/uL Normal 3.5-11.3 [facility] Comment on above: Performed By: #### BRANDY Nunez DAU #### [facility] [address] [place], [place] [phone] Cartography Professor: Tre Ferrell MD Platelet mean volume (Bld) [Entitic vol] NOT REPORTED Normal 8.1-13.5 [facility] Comment on above: Performed By: #### BRANDY Nunez DAU #### [facility] [address] [place], [place] [phone] Cartography Professor: Tre Ferrell MD Erythrocyte distribution width (RBC) [Ratio] 13.1 % 11.8 - 14.4 % [place] Hematocrit (Bld) [Volume fraction] 37.3 % Low 40.7 - 50.3 % [place] Hemoglobin (Bld) [Mass/Vol] 11.8 g/dL Low 13 - 17 g/dL [place] Interpretation and review of laboratory results Abnormal [place] MCH (RBC) [Entitic mass] 28.9 pg 25.2 - 33.5 pg [place] MCHC (RBC) [Mass/Vol] 31.6 g/dL 28.4 - 34.8 g/dL [place] MCV (RBC) [Entitic vol] 91.4 fL 82.6 - 102.9 fL [place] Platelet mean volume (Bld) [Entitic vol] NOT REPORTED 8.1 - 13.5 fL [place] Platelets (Bld) [#/Vol] See Reflexed IPF Result [place] RBC (Bld) [#/Vol] 4.08 10*6/uL Low 4.21 - 5.7 7 m/uL [place] WBC (Bld) [#/Vol] 0.0 10*3/uL 0.0 per 10 0 WBC [place] WBC (Bld) [#/Vol] 6.7 10*3/uL [place] Creatinine W/GFR Point of Ca reon 09-24-2019 Creatinine [Mass/Vol] 1.03 mg/dL 0.51 - 1.19 mg/dL [place] GFR Non- CANNOT BE CALCULATED >60 mL/min [place] GFR/1.73 sq M predicted among non-blacks MDRD (S/P/Bld) [Vol rate/Area] [place] Comment on above: Average GFR for 60-6 9 years old: 85 mL/min/1.73sq m Chronic Kidney Disease: <60 mL/min/1.73sq m Kidney failure: <15 mL/min/1.73sq m eGFR calculated using average adult body mass. Additional eGFR calculator available at: http://www.[employer]ent [employer]/multiple_crcl_2012.htm GFR/1.73 sq M predicted among non-blacks MDRD (S/P/Bld) [Vol rate/Area] CANNOT BE CALCULATED >60 mL/min [place] Hemoglobin and hematocrit, b loodon 09-24-2019 Hematocrit (Bld) [Volume fraction] 37 % Low 41 - 53 % [place] Hemoglobin (Bld) [Mass/Vol] 12.7 g/dL Low 13.5 - 17.5 g/dL [place] Immature Platelet Fractionon 09-24-2019 Interpretation and review of laboratory results Abnormal [place] Platelet, Fluorescence [address] [place], [place] Comment on above: ORDERED BY LAB Platelet, Immature Fraction 4.3 % 1.1 - 10.3 % [place] Comment on above: ORDERED BY LAB Lactic Acidon 09-24-2019 Lactate [Moles/Vol] 1.9 mmol/L Normal 0.7-2.1 [facility] Comment on above: Performed By: #### BRANDY Nunez DAU #### [employer] [address] [place] [address] Cartography Professor: Tre Ferrell MD Lactate [Moles/Vol] NOT REPORTED Normal [facility] Comment on above: Performed By: #### BRANDY Nunez DAU #### [facility] [address] [place] [address] Cartography Professor: Tre Ferrell MD Lactic Acid, POCon 0 POC Lactic Acid 0.92 mmol/L 0.56 - 1.39 mmol/L [place] POC Lactic Acid 2.45 mmol/L High 0.56 - 1.39 mmol/L [place] Lactic acid, plasmaon 2019 Lactate [Moles/Vol] NOT REPORTED mmol/L [place] Lactic Acid, Whole Blood 1.9 mmol/L 0.7 - 2.1 mmol/L [place] Otheron 09-24-2019 Interpretation and review of laboratory results Abnormal [place] PLT, Immature Fract.on 09-23 Platelet, Fluoresc. 129 k/uL Low 138-453 [facility] Comment on above: Result Comment: ORDE RED BY LAB Performed By: #### BRANDY Nunez DAU #### [employer] [address] [place] [address] Cartography Professor: Tre Ferrell MD PLT, Immature Fract. 4.3 % Normal 1.1-10.3 [facility] Comment on above: Result Comment: ORDE RED BY LAB Performed By: #### BRANDY Nunez MK #### [employer] [address] [place] [address] Cartography Professor: Tre Ferrell MD POCT Glucoseon 09-24-2019 Glucose [Mass/Vol] 97 mg/dL 74 - 100 mg/dL [place] POTASSIUM (POC)on 09-24-2019 Potassium [Moles/Vol] 3.6 mmol/L 3.5 - 4.5 mmol/L [place] SODIUM (POC)on 09-24-2019 Sodium [Moles/Vol] 145 mmol/L 138 - 146 mmol/L [place] XR CERVICAL SPINE (2-3 VIEWS )on [...] Dameon Ramirez MD 09/24/19 Final result Normal [facility] EXAMINATION: 2 XRAY VIEWS OF THE [...] on these views. Support tubes in place. [place] Intraoperative views of posterior fusion of C3, C4 and C5. [place] Samm, Mhpn Incoming Radiant Results From [employer]come/[employer] - 09/24/2019 7:55 AM EDT EXAMINATION: 2 [...] posterior fusion of C3, C4 and C5. [place] XR CHEST PORTABLEon 09-24-19 20 XR [...] Fede Stafford MD 09/24/19 Final result Normal [facility] EXAMINATION: ONE XRAY VIEW OF THE [...] is stable. The osseous structures are stable. [place] Samm, Mhpn Incoming Radiant Results From [employer] - 09/24/2019 2:08 PM EDT EXAMINATION: ONE [...] structures are stable. IMPRESSION: No acute process. [place] No acute process. [place] AMMONIAon 09-23-2019 Ammonia (P) [Mass/Vol] 37 umol/L 16 - 60 umol/L [place] Ammoniaon 09-23-2019 Ammonia (P) [Mass/Vol] 37 umol/L Normal 16-60 [facility] Comment on above: Performed By: #### U BRANDY Nelson DAU #### [facility] [place], [place] [phone] Cartography Professor: Tre Ferrell MD Arterial Blood Gas, POCon Mino Test NOT REPORTED [place] aPTT Coag (Bld) [Time] NOT REPORTED [place] FIO2 30.0 [place] Mode PRVC [place] Negative Base Excess, Art NOT REPORTED [place] O2 Device/Flow/% Adult Ventilator [place] Oxygen saturation in Blood 94 % 94 - 98 % [place] POC HCO3 27.3 mmol/L 21 - 28 mmol/L [place] POC pCO2 50.8 High [place] POC pCO2 Temp NOT REPORTED mm Hg [place], [place] POC pH 7.338 Low [place] POC pH Temp NOT REPORTED [place] POC PO2 76.9 Low [place] POC pO2 Temp NOT REPORTED mm Hg [place] Positive Base Excess, Art 1 [place] Sample Site Arterial Line [place] TCO2 (calc), Art 29 mmol/L 22 - 29 mmol/L [place] Basic Metab w/rfx MGon 09-22 (cont.) Normal [facility] Comment on above: Result Comment: Aver age GFR for 60-69 years old: 85 mL/min/1.73sq m Chronic Kidney Disease: <60 mL/min/1.73sq m Kidney failure: <15 mL/min/1.73sq m eGFR calculated using average adult body mass. Additional eGFR calculator available at: http://www.[employer]rph.[employer]/multiple_crcl_2012.htm Performed By: #### BRANDY Nunez DAU #### [facility] [address] [place] [address] Cartography Professor: Tre Ferrell MD Anion gap [Moles/Vol] 11 mmol/L Normal 9-17 [facility] Comment on above: Performed By: #### BRANDY Nunez DAU #### [facility] [address] [place] [address] Cartography Professor: Tre Ferrell MD Calcium [Mass/Vol] 8.4 mg/dL Low 8.6-10.4 [facility] Comment on above: Performed By: #### BRANDY Nunez DAU #### [address] [address] Cartography Professor: Tre Ferrell MD Chloride [Moles/Vol] 108 mmol/L High 98-107 [facility] Comment on above: Performed By: #### BRANDY Nunez DAU #### [address] [address] Cartography Professor: Tre Ferrell MD CO2 [Moles/Vol] 23 mmol/L Normal 20-31 [facility] Comment on above: Performed By: #### BRANDY Nunez DAU #### [facility] [address] [place] [address] Cartography Professor: Tre Ferrell MD Creatinine [Mass/Vol] 0.68 mg/dL Low 0.70-1.20 [facility] Comment on above: Performed By: #### BRANDY Nunez DAU #### [facility] [address] [place] [address] Cartography Professor: Tre Ferrell MD GFR, Amer >60 Normal >60 [facility] Comment on above: Performed By: #### Chelle NelsonBRANDY MK #### [facility] [address] [place] [address] Cartography Professor: Tre Ferrell MD GFR,non Amer >60 Normal >60 [facility] Comment on above: Performed By: #### U A, BRANDY MK #### [facility] [address] [place] [address] Cartography Professor: Tre Ferrell MD Glucose [Mass/Vol] 85 mg/dL Normal 70-99 [facility] Comment on above: Performed By: #### U BRANDY Nelson DAU #### [facility] [address] [place] [address] Cartography Professor: Tre Ferrell MD Potassium [Moles/Vol] 3.9 mmol/L Normal 3.7-5.3 [facility] Comment on above: Performed By: #### U ABRANDY MK #### [facility] [address] [place] [address] Cartography Professor: Tre Ferrell MD Sodium [Moles/Vol] 142 mmol/L Normal 135-144 [facility] Comment on above: Performed By: #### U ABRANDY MK #### [facility] [address] [place] [address] Cartography Professor: Tre Ferrell MD Urea nitrogen [Mass/Vol] 15 mg/dL Normal 8-23 [facility] Comment on above: Performed By: #### U ABRANDY MK #### [facility] [address] [place] [address] Cartography Professor: Tre Ferrell MD BUN/CRE Ratio NOT REPORTED Normal 9-20 [facility] Comment on above: Performed By: #### U ABRANDY MK #### [facility] [address] [place] [address] Cartography Professor: Tre Ferrell MD Staging: NOT REPORTED Normal [facility] Comment on above: Performed By: #### U BRANDY Nelson DAU #### [facility] [address] [place], [place] [phone] Cartography Professor: Tre Ferrell MD Basic Metabolic Panel w/ Ref kylee to MGon 09-23-2019 Anion gap [Moles/Vol] 11 mmol/L 9 - 17 mmol/L [place] Bun/Cre Ratio NOT REPORTED [place] Calcium [Mass/Vol] 8.4 mg/dL Low 8.6 - 10. 4 mg/dL [place] Chloride [Moles/Vol] 108 mmol/L High 98 - 10 7 mmol/L [place] CO2 [Moles/Vol] 23 mmol/L 20 - 31 mmol/L [place] Creatinine [Mass/Vol] 0.68 mg/dL Low 0.7 - 1.2 mg/dL [place] GFR >60 >60 mL/min [place] GFR Non- >60 >60 mL/min [place] GFR/1.73 sq M predicted among non-blacks MDRD (S/P/Bld) [Vol rate/Area] NOT REPORTED [place] GFR/1.73 sq M predicted among non-blacks MDRD (S/P/Bld) [Vol rate/Area] [place] Comment on above: Average GFR for 60-6 9 years old: 85 mL/min/1.73sq m Chronic Kidney Disease: <60 mL/min/1.73sq m Kidney failure: <15 mL/min/1.73sq m eGFR calculated using average adult body mass. Additional eGFR calculator available at: http://www.[employer]/multiple_crcl_2012.htm Glucose [Mass/Vol] 85 mg/dL 70 - 99 mg/dL [place] Interpretation and review of laboratory results Abnormal [place] Potassium [Moles/Vol] 3.9 mmol/L 3.7 - 5.3 mmol/L [place] Sodium [Moles/Vol] 142 mmol/L 135 - 144 mmol/L [place] Urea nitrogen [Mass/Vol] 15 mg/dL 8 - 23 mg/dL [place] CBC Auto Differentialon 08-27 Basophils (Bld) [#/Vol] 10*3/uL [place] Basophils/100 WBC (Bld) 0 % 0 - 2 % [place] Differential Type NOT REPORTED [place] Eosinophils (Bld) [#/Vol] 0.08 10*3/uL [place] Eosinophils/100 WBC (Bld) 1 % 1 - 4 % [place] Erythrocyte distribution width (RBC) [Ratio] 13.3 % 11.8 - 14.4 % [place] Hematocrit (Bld) [Volume fraction] 39.0 % Low 40.7 - 50.3 % [place] Hemoglobin (Bld) [Mass/Vol] 12.3 g/dL Low 13 - 17 g/dL [place] Immature granulocytes (Bld) [#/Vol] 10*3/uL [place] Immature granulocytes (Bld) [#/Vol] 0 % 0 [place] Interpretation and review of laboratory results Abnormal [place] Lymphocytes (Bld) [#/Vol] 1.31 10*3/uL [place] Lymphocytes/100 WBC (Bld) 22 % Low 24 - 43 % [place] MCH (RBC) [Entitic mass] 28.8 pg 25.2 - 33.5 pg [place] MCHC (RBC) [Mass/Vol] 31.5 g/dL 28.4 - 34.8 g/dL [place] MCV (RBC) [Entitic vol] 91.3 fL 82.6 - 102.9 fL [place] Monocytes (Bld) [#/Vol] 0.68 10*3/uL [place] Monocytes/100 WBC (Bld) 11 % 3 - 12 % [place] Platelet mean volume (Bld) [Entitic vol] 9.8 fL 8.1 - 13.5 fL [place] Platelets (Bld) [#/Vol] NOT REPORTED [place] Platelets (Bld) [#/Vol] 197 10*3/uL [place] RBC (Bld) [#/Vol] 4.27 10*6/uL 4.21 - 5.7 7 m/uL [place] RBC morphology finding Nom (Bld) NOT REPORTED [place] Segmented neutrophils/100 WBC (Bld) 65 % 36 - 65 % [place] Segs Absolute 3.88 [place] WBC (Bld) [#/Vol] 6.0 10*3/uL [place] WBC (Bld) [#/Vol] 0.0 10*3/uL 0.0 per 10 0 WBC [place] WBC Morphology NOT REPORTED [place] CBC with Diffon 09-23-2019 Abs. Basophil <0.03 Normal 0.00-0.20 [facility] Comment on above: Performed By: #### BRANDY Nunez DAU #### [facility] [address] [place] [address] Cartography Professor: Tre Ferrell MD Abs.Imm.Granulocyte <0.03 Normal 0.00-0.30 [facility] Comment on above: Performed By: #### BRANDY Nunez DAU #### [facility] [address] [place] [address] Cartography Professor: Tre Ferrell MD Abs.Neutrophil (Seg) 3.88 k/uL Normal 1.50-8.10 [facility] Comment on above: Performed By: #### BRANDY Nunez DAU #### [facility] [address] [place] [address] Cartography Professor: Tre Ferrell MD Basophils/100 WBC (Bld) 0 % Normal 0-2 [facility] Comment on above: Performed By: #### BRANDY Nunez DAU #### [address] [address] Cartography Professor: Tre Ferrell MD Eosinophils (Bld) [#/Vol] 0.08 10*3/uL Normal 0.00-0.44 [facility] Comment on above: Performed By: #### BRANDY Nunez DAU #### [address] [address] Cartography Professor: Tre Ferrell MD Eosinophils/100 WBC (Bld) 1 % Normal 1-4 [facility] Comment on above: Performed By: #### BRANDY Nunez DAU #### [address] [phone] Cartography Professor: Tre Ferrell MD Erythrocyte distribution width (RBC) [Ratio]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 [facility] Comment on above: Performed By: #### E RTPF #### [address] [address] Cartography Professor: Tre Ferrell MD WBC (Bld) [#/Vol] 3.9 10*3/uL Normal 3.5-11.3 [facility] Comment on above: Performed By: #### E RTPF #### [address] [address] Cartography Professor: Tre Ferrell MD Blood Bank BILL FOR SERVICES PERFORMED Normal [facility] Comment on above: Performed By: #### E RTPF #### [address] [address] Cartography Professor: Tre Ferrell MD (cont.) NOT REPORTED Normal [facility] Comment on above: Performed By: #### E RTPF #### [facility] [address] [place] [address] Cartography Professor: Tre Ferrell MD Mino Test NOT REPORTED Normal [facility] Comment on above: Performed By: #### E RTPF #### [facility] [address] [place] [address] Cartography Professor: Tre Ferrell MD GFR, Amer NOT REPORTED Normal >60 [facility] Comment on above: Performed By: #### E RTPF #### [facility] [address] [place] [address] Cartography Professor: Tre Ferrell MD GFR,non Amer NOT REPORTED Normal >60 [facility] Comment on above: Performed By: #### E RTPF #### [address] [address] Cartography Professor: Tre Ferrell MD Methemoglobin NOT REPORTED Normal 0.0-1.5 [facility] Comment on above: Performed By: #### E RTPF #### [address] [address] Cartography Professor: Tre Ferrell MD Mode NOT REPORTED Normal [facility] Comment on above: Performed By: #### E RTPF #### [facility] [address] [place] [address] Cartography Professor: Tre Ferrell MD Notification Time NOT REPORTED Normal [facility] Comment on above: Performed By: #### E RTPF #### [facility] [address] [place] [address] Cartography Professor: Tre Ferrell MD Notification: NOT REPORTED Normal [facility] Comment on above: Performed By: #### E RTPF #### [address] [address] Cartography Professor: Tre Ferrell MD O2 Device/Flow/% NOT REPORTED Normal [facility] Comment on above: Performed By: #### E RTPF #### [address] [address] Cartography Professor: Tre Ferrell MD Oxyhemoglobin NOT REPORTED Normal 95.0-98.0 [facility] Comment on above: Performed By: #### E RTPF #### [address] [address] Cartography Professor: Tre Ferrell MD Pco2 Adj'd for Temp. NOT REPORTED Normal 39-55 [facility] Comment on above: Performed By: #### E RTPF #### [address] [address] Cartography Professor: Tre Ferrell MD PEEP/CPAP NOT REPORTED Normal [facility] Comment on above: Performed By: #### E RTPF #### [address] [address] Cartography Professor: Tre Ferrell MD pH Adjst'd for Temp. NOT REPORTED Normal 7.320-7.420 [facility] Comment on above: Performed By: #### E RTPF #### [address] [address] Cartography Professor: Tre Ferrell MD pO2 Adj'd for Temp. NOT REPORTED Normal 30-50 [facility] Comment on above: Performed By: #### E RTPF #### [address] [address] Cartography Professor: Tre Ferrell MD Positive Base Excess NOT REPORTED Normal 0.0-2.0 [facility] Comment on above: Performed By: #### E RTPF #### [facility] [address] [place] [address] Cartography Professor: Tre Ferrell MD PSV NOT REPORTED Normal [facility] Comment on above: Performed By: #### E RTPF #### [facility] [address] [place] [address] Cartography Professor: Tre Ferrell MD Pt. Position NOT REPORTED Normal [facility] Comment on above: Performed By: #### E RTPF #### [address] [address] Cartography Professor: Tre Ferrell MD Set Rate NOT REPORTED Normal [facility] Comment on above: Performed By: #### E RTPF #### [facility] [address] [place] [address] Cartography Professor: Tre Ferrell MD Site Drawn NOT REPORTED Normal [facility] Comment on above: Performed By: #### E RTPF #### [address] [address] Cartography Professor: Tre Ferrell MD Staging: NOT REPORTED Normal [facility] Comment on above: Performed By: #### E RTPF #### [facility] [address] [place] [address] Cartography Professor: Tre Ferrell MD Text for Respiratory NOT REPORTED Normal [facility] Comment on above: Performed By: #### E RTPF #### [address] [address] Cartography Professor: Tre Ferrell MD Total Hb NOT REPORTED Normal 12.0-16.0 [facility] Comment on above: Performed By: #### E RTPF #### [facility] [address] [place] [address] Cartography Professor: Tre Ferrell MD Total Rate NOT REPORTED Normal [facility] Comment on above: Performed By: #### E RTPF #### [address] [address] Cartography Professor: Tre Ferrell MD VT NOT REPORTED Normal [facility] Comment on above: Performed By: #### E RTPF #### [address] [id number] Cartography Professor: Tre Ferrell MD Type + Screenon 09-23-2019 Type + Screen Sample Expiration 09/26/2019,2359 Arm Band Number [id number] ABO/Rh(D) O POSITIVE Antibody Screen NEGATIVE Normal [facility] Comment on above: Performed By: #### T YS #### [address] [address] Cartography Professor: Tre Ferrell MD Urinalysison 09-23-2019 Bilirubin Urine Negative NEGATIVE [facility], [place] Color, UA YELLOW YELLOW [place], [place] Glucose, Ur Negative NEGATIVE [place] Interpretation and review of laboratory results Abnormal [place], [place] Ketones Ql (U) Negative NEGATIVE [facility], [place] Leukocyte esterase Test strip Ql (U) Negative NEGATIVE [facility], [place] Nitrite, Urine Negative NEGATIVE [facility], [place] pH, UA 6.0 [place], [place] Protein (U) [Mass/Vol] 1+ Abnormal NEGATIVE [facility], [place] Specific [place], UA 1.021 [facility], [place] Turbidity UA CLEAR CLEAR [place], [place] Urinalysis Comments NOT REPORTED [facility], [place] Urine Hgb Negative NEGATIVE [facility], [place] Urobilinogen, Urine Normal Normal [place] Urinalysis, Routineon 2019 Acetoacetic Acid,Ur Negative Normal NEG [facility] Comment on above: Performed By: #### U BRANDY Nelson DAU #### [address] [address] Cartography Professor: Tre Ferrell MD Bilirubin, SemiQt,Ur Negative Normal NEG [facility] Comment on above: Performed By: #### U A, UMMEGANO, MK #### [address] [address] Cartography Professor: Tre Ferrell MD Color (U) YELLOW Normal YEL [facility] Comment on above: Performed By: #### U A, UMMEGANO, MK #### [address] [address] Cartography Professor: Tre Ferrell MD Glucose Ql (U) Negative Normal NEG [facility] Comment on above: Performed By: #### U ABRANDY, MK #### [address] [address] Cartography Professor: Tre Ferrell MD Hemoglobin, Ur Negative Normal NEG [facility] Comment on above: Performed By: #### U ABRANDY MK #### [address] [address] Cartography Professor: Tre Ferrell MD Leukocyte esterase Test strip Ql (U) Negative Normal NEG [facility] Comment on above: Performed By: #### U ABRANDY MK #### [address] [address] Cartography Professor: Tre Ferrell MD Nitrite,Ur Negative Normal NEG [facility] Comment on above: Performed By: #### U ABRANDY MK #### [address] [address] Cartography Professor: Tre Ferrell MD pH (U) 6.0 [pH] Normal 5.0-8.0 [facility] Comment on above: Performed By: #### U ABRANDY MK #### [facility] [place] [address] Cartography Professor: Tre Ferrell MD Protein Ql (U) 1+ Abnormal NEG [facility] Comment on above: Performed By: #### U ABRANDY MK #### [facility] [address] [place] [address] Cartography Professor: Tre Ferrell MD Specific gravity (U) [Rel density] 1.021 Normal 1.005-1.030 [facility] Comment on above: Performed By: #### U BRANDY Nelson MK #### [facility] [address] [place] [address] Cartography Professor: Tre Ferrell MD Turbidity CLEAR Normal CLEAR [facility] Comment on above: Performed By: #### BRANDY Nunez MK #### [facility] [address] [place] [address] Cartography Professor: Tre Ferrell MD Urobilinogen,Ur Normal Normal NORM [facility] Comment on above: Performed By: #### U BRANDY Nelson MK #### [facility] [address] [place] [address] Cartography Professor: Tre Ferrell MD Comment NOT REPORTED Normal [facility] Comment on above: Performed By: #### U BRANDY Nelson MK #### [facility] [address] [place] [address] Cartography Professor: Tre Ferrell MD Urinalysis,Microon 0 ----- Normal [facility] Comment on above: Performed By: #### U ABRANDY, MK #### [facility] [address] [place] [address] Cartography Professor: Tre Ferrell MD Casts LM.LPF (Urine sed) [#/Area] 2 TO 5 HYALINE Normal 0-8 [facility] Comment on above: Result Comment: Refe rence range defined for non-centrifuged specimen. Performed By: #### U A, BRANDY MK #### [facility] [address] [place] [address] Cartography Professor: Tre Ferrell MD Epithelial cells LM.HPF (Urine sed) [#/Area] 0 TO 2 Normal 0-5 [facility] Comment on above: Performed By: #### U A, BRANDY, MK #### [facility] [address] [place] [address] Cartography Professor: Tre Ferrell MD RBC (U) [#/Vol] 2 TO 5 Normal 0-4 [facility] Comment on above: Result Comment: Refe rence range defined for non-centrifuged specimen. Performed By: #### U A, BRANDY MK #### [facility] [address] [place] [address] Cartography Professor: Tre Ferrell MD WBC (U) [#/Vol] 2 TO 5 Normal 0-5 [facility] Comment on above: Performed By: #### U A, BRANDY, MK #### [facility] [address] [place] [address] Cartography Professor: Tre Ferrell MD Amorphous sediment LM Ql (Urine sed) NOT REPORTED Normal NONE [facility] Comment on above: Performed By: #### U A, BRANDY, MK #### [facility] [address] [place] [address] Cartography Professor: Tre Ferrell MD Bacteria LM.HPF (Urine sed) [#/Area] NOT REPORTED Normal NONE [facility] Comment on above: Performed By: #### U A, UMMEGANO, MK #### [facility] [address] [place] [address] Cartography Professor: Tre Ferrell MD Crystals LM Nom (Urine sed) NOT REPORTED Normal NONE [facility] Comment on above: Performed By: #### U A, BRANDY, MK #### [facility] [address] [place] [address] Cartography Professor: Tre Ferrell MD Epithelial, Renal NOT REPORTED Normal 0 [facility] Comment on above: Performed By: #### U A, BRANDY, MK #### [facility] [address] [place] [address] Cartography Professor: Tre Ferrell MD Mucus Strands NOT REPORTED Normal [facility] Comment on above: Performed By: #### U A, UMMEGANO, MK #### [facility] [address] [place] [address] Cartography Professor: Tre Ferrell MD Other Observations NOT REPORTED Normal NREQ [facility] Comment on above: Performed By: #### U A, BRANDY, MK #### [facility] [address] [place] [address] Cartography Professor: Tre Ferrell MD Trichomonas NOT REPORTED Normal [facility] Comment on above: Performed By: #### U A, UMICAO, MK #### [facility] [address] [place] [address] Cartography Professor: Tre Ferrell MD Yeast LM Ql (Urine sed) NOT REPORTED Normal [facility] Comment on above: Performed By: #### U A, UMICAO, MK #### [facility] [address] [place] [address] Cartography Professor: Tre Ferrell MD Urine Drug Screenon 09-23-19 20 Amphetamine Screen, Ur Negative NEGATIVE [facility], [place] Comment on above: (Positive cutoff 1000 ng/mL) Barbiturate Screen, Ur Negative NEGATIVE [facility], [place] Comment on above: (Positive cutoff 200 ng/mL) Benzodiazepine Screen, Urine Negative NEGATIVE [place], [place] Comment on above: (Positive cutoff 200 ng/mL) Buprenorphine Urine NOT REPORTED NEGATIVE [place], [place] Cannabinoid Scrn, Ur Positive Abnormal NEGATIVE [place], [place] Comment on above: (Positive cutoff 50 ng/mL) Cocaine Metabolite, Urine Negative NEGATIVE [place] Comment on above: (Positive cutoff 300 ng/mL) Interpretation and review of laboratory results Abnormal [place] MDMA, Urine NOT REPORTED NEGATIVE [place] Methadone Screen, Urine Negative NEGATIVE [place] Comment on above: (Positive cutoff 300 ng/mL) Methamphetamine, Urine NOT REPORTED NEGATIVE [place] Opiates, Urine Negative NEGATIVE [place], [place] Comment on above: (Positive cutoff 300 ng/mL) Oxycodone Screen, Ur Negative NEGATIVE [place], [place] Comment on above: (Positive cutoff 100 ng/mL) Phencyclidine, Urine Negative NEGATIVE [place] Comment on above: (Positive cutoff 25 ng/mL) Propoxyphene, Urine NOT REPORTED NEGATIVE [place] Test Information Assay provides medical screening only. The absence of expected drug(s) and/or metabolite(s) may indicate diluted or adulterated urine, limitations of testing or timing of collection. [place], [place] Comment on above: Testing for legal pu rposes should be confirmed by another method. To request confirmation of test result, please call the lab within 7 days of sample submission. Tricyclic Antidepressants, Urine NOT REPORTED NEGATIVE [place], [place] XR CHEST PORTABLEon 09-23-19 20 XR CHEST PORTABLE EXAMINATION: ONE XRAY VIEW OF THE CHEST 09/23/2019 10:11 am COMPARISON: 09/23/2019, 1:09 a.m. HISTORY: ORDERING SYSTEM PROVIDED HISTORY: intubated TECHNOLOGIST PROVIDED HISTORY: intubated 64-year-old intubated male FINDINGS: Portable supine view of the chest. nurse monitoring leads overlie the chest. Enteric tube traverses [...] Ghassan Sharpe MD 09/23/19 Final result Normal [facility] EXAMINATION: ONE XRAY VIEW OF THE CHEST 09/23/2019 10:11 am COMPARISON: 09/23/2019, 1:09 a.m. HISTORY: ORDERING SYSTEM PROVIDED HISTORY: intubated TECHNOLOGIST PROVIDED HISTORY: intubated 64-year-old intubated male FINDINGS: Portable supine view of the chest. nurse monitoring leads overlie the chest. Enteric tube traverses [...] pleural effusions. Visualized osseous structures remain unchanged. [facility] [place], [place] [facility]amm, [facility] Incoming Radiant Results From [employer] - 09/23/2019 10:40 AM EDT EXAMINATION: ONE XRAY VIEW OF THE CHEST 09/23/2019 10:11 am COMPARISON: 09/23/2019, 1:09 a.m. HISTORY: ORDERING SYSTEM PROVIDED HISTORY: intubated TECHNOLOGIST PROVIDED HISTORY: intubated 64-year-old intubated male FINDINGS: Portable supine view of the chest. nurse monitoring leads overlie the chest. Enteric tube traverses [...] 09/23/2019to be communicated to a licensed caregiver. [place], [place] 1. Bandlike atelectasis and scarring at [...] 09/23/2019to be communicated to a licensed caregiver. [place] XR CHEST PORTABLE EXAMINATION: ONE XRAY VIEW OF THE CHEST 09/23/2019 1:20 am COMPARISON: None. HISTORY: ORDERING SYSTEM PROVIDED HISTORY: [employer] TECHNOLOGIST PROVIDED HISTORY: [employer] FINDINGS: And oral gastric tube extends to [...] Gianni Panda MD 09/23/19 Final result Normal [facility] Cholesterol in LDL [Mass/Vol] Mild left basilar atelectasis. Lungs are otherwise clear. OG tube courses to the stomach. The tip was not visualized. Endotracheal tube is borderline high in position as above. [place] EXAMINATION: ONE XRAY VIEW OF THE [...] or pleural fluid. No acute bone finding. [place], [place] Samm, [facility] Incoming Radiant Results From [employer] - 09/23/2019 2:30 AM EDT EXAMINATION: ONE [...] is borderline high in position as above. [place], [place] Vital Signs Date Time Vital Sign Value Performing Clinician Facility 07-23-2023 00:59-0400 Diastolic blood pressure 62 mm[Hg] DO Ana [employer] Work Phone: [facility] 07-23-2023 00:59-0400 Systolic blood pressure 101 mm[Hg] DO Ana [employer] Work Phone: [facility] 07-23-2023 00:53-0400 Heart rate 65 /min DO Ana [employer] Work Phone: [facility] 07-23-2023 00:53-0400 Respiratory rate 16 /min DO Ana [employer] Work Phone: [facility] 07-23-2023 00:53-0400 SaO2% (BldA) [Mass fraction] 96 % DO Ana [employer]oley Work Phone: [facility] 07-22-2023 20:52-0400 Body temperature 97.8 [degF] DO Ana Foley Work Phone: [facility] 07-22-2023 18:39-0400 Body height 177.8 cm DO Ana Foley Work Phone: [facility] 07-22-2023 18:39-0400 Body weight 72.57 kg DO Ana Foley Work Phone: [facility] 07-14-2023 10:00-0400 Body height 177.8 cm DO Ana Foley Work Phone: [facility] 07-14-2023 10:00-0400 Body mass index (BMI) [Ratio] 22.9 kg/m2 DO Ana Foley Work Phone: [facility] 07-14-2023 10:00-0400 Body weight 72.57 kg DO Ana Foley Work Phone: [facility] 07-14-2023 09:50-0400 Body temperature 98.2 [degF] DO Ana Foley Work Phone: [facility] 07-14-2023 09:50-0400 Diastolic blood pressure 88 mm[Hg] DO Ana Foley Work Phone: [facility] 07-14-2023 09:50-0400 Heart rate 72 /min DO Ana Foley Work Phone: [facility] 07-14-2023 09:50-0400 Respiratory rate 18 /min DO Ana Foley Work Phone: [facility] 07-14-2023 09:50-0400 Systolic blood pressure 129 mm[Hg] DO Ana Foley Work Phone: [facility] 05-04-2023 09:15-0500 Body height 177.8 cm Ana Foley Other [employer] Other 05-04-2023 09:15-0500 Diastolic blood pressure 72 mm[Hg] Ana Foley Other [employer] Other 05-04-2023 09:15-0500 Respiratory rate 18 /min Ana Foley Other [employer] Other 05-04-2023 09:15-0500 SaO2% (BldA) [Mass fraction] 99 % Ana Foley Other [facility] [employer] Other 05-04-2023 09:15-0500 Systolic blood pressure 120 mm[Hg] Ana Foley Other [facility] [employer] Other 04-22-2023 20:33-0500 Diastolic blood pressure 78 mm[Hg] DO Ana Foley Work Phone: [facility] 04-22-2023 20:33-0500 Heart rate 69 /min DO Ana Foley Work Phone: [facility] 04-22-2023 20:33-0500 Respiratory rate 20 /min DO Ana Foley Work Phone: [facility] 04-22-2023 20:33-0500 SaO2% (BldA) [Mass fraction] 98 % DO Ana Foley Work Phone: [facility] 04-22-2023 20:33-0500 Systolic blood pressure 128 mm[Hg] DO Ana Foley Work Phone: [facility] 04-22-2023 16:37-0500 Body height 177.8 cm DO Ana Foley Work Phone: [facility] 04-22-2023 16:37-0500 Body weight 70 kg DO Ana Foley Work Phone: [facility] 04-22-2023 16:32-0500 Body temperature 97.4 [degF] DO Ana Foley Work Phone: [facility] 04-19-2023 15:17-0500 Body temperature 97.9 [degF] DO Ana Foley Work Phone: [facility] 04-19-2023 15:17-0500 Diastolic blood pressure 66 mm[Hg] DO Ana Foley Work Phone: [facility] 04-19-2023 15:17-0500 Heart rate 75 /min DO Ana Foley Work Phone: [facility] 04-19-2023 15:17-0500 Respiratory rate 18 /min DO Ana Foley Work Phone: [facility] 04-19-2023 15:17-0500 SaO2% (BldA) [Mass fraction] 99 % DO Ana Foley Work Phone: [facility] 04-19-2023 15:17-0500 Systolic blood pressure 101 mm[Hg] DO Ana Foley Work Phone: [facility] 04-18-2023 11:40-0500 Inhaled oxygen flow rate 4 L/min DO Ana Vicenta Work Phone: [facility] 04-17-2023 06:00-0500 Body weight 61.5 kg DO Ana Foley Work Phone: [facility] 04-15-2023 15:51-0500 Body height 175.26 cm DO Ana Foley Work Phone: [facility] 04-04-2023 09:09-0500 Body height 177.8 cm DO Ana Foley Work Phone: [facility] 04-04-2023 09:09-0500 Body mass index (BMI) [Ratio] 22.9 kg/m2 DO Ana Foley Work Phone: [facility] 04-04-2023 09:09-0500 Body weight 72.57 kg DO Ana Foley Work Phone: [facility] 04-04-2023 08:22-0500 Body temperature 97.7 [degF] DO Ana Foley Work Phone: [facility] 04-04-2023 08:22-0500 Diastolic blood pressure 77 mm[Hg] DO Ana Foley Work Phone: [facility] 04-04-2023 08:22-0500 Heart rate 101 /min DO Ana Foley Work Phone: [facility] 04-04-2023 08:22-0500 Respiratory rate 20 /min DO Ana Foley Work Phone: [facility] 04-04-2023 08:22-0500 Systolic blood pressure 108 mm[Hg] DO Ana Foley Work Phone: [facility] 03-22-2023 16:00-0500 Body temperature 97.8 [degF] DO Ana Foley Work Phone: [facility] 03-22-2023 16:00-0500 Diastolic blood pressure 90 mm[Hg] DO Ana Foley Work Phone: [facility] 03-22-2023 16:00-0500 Heart rate 84 /min DO Ana Foley Work Phone: [facility] 03-22-2023 16:00-0500 Respiratory rate 18 /min DO Ana Foley Work Phone: [facility] 03-22-2023 16:00-0500 SaO2% (BldA) [Mass fraction] 99 % DO Ana Foley Work Phone: [facility] 03-22-2023 16:00-0500 Systolic blood pressure 146 mm[Hg] DO Ana Foley Work Phone: [facility] 03-22-2023 04:41-0500 Body weight 69.2 kg DO Ana Foley Work Phone: [facility] 03-18-2023 13:12-0500 Body height 175.26 cm DO Ana Foley Work Phone: [facility] 03-14-2023 14:19-0500 Heart rate 98 /min DO Ana Foley Work Phone: [facility] 03-14-2023 14:19-0500 Respiratory rate 18 /min DO Ana Foley Work Phone: [facility] 03-14-2023 14:19-0500 SaO2% (BldA) [Mass fraction] 100 % DO Ana Foley Work Phone: [facility] 03-14-2023 13:18-0500 Body height 175.26 cm DO Ana Foley Work Phone: [facility] 03-14-2023 13:18-0500 Body temperature 97.4 [degF] DO Ana Foley Work Phone: [facility] [facility] 03-14[facility]2023 13:18-0500 Body weight 73.02 kg DO Ana Foley Work Phone: [facility] 03-14-2023 13:18-0500 Diastolic blood pressure 83 mm[Hg] DO Ana Foley Work Phone: [facility] 03-14-2023 13:18-0500 Systolic blood pressure 122 mm[Hg] DO Ana Foley Work Phone: [facility] 02-25-2023 10:00-0500 Body height 177.8 cm Ana Foley Other [facility] Other 02-25-2023 10:00-0500 Diastolic blood pressure 80 mm[Hg] Ana Foley Other [facility] Other 02-25-2023 10:00-0500 Respiratory rate 18 /min Ana Foley Other [facility] Other 02-25-2023 10:00-0500 SaO2% (BldA) [Mass fraction] 99 % Ana Foley Other [facility] Other 02-25-2023 10:00-0500 Systolic blood pressure 140 mm[Hg] Ana Foley Other [facility] [employer] Other 02-14-2023 18:00-0500 Diastolic blood pressure 52 mm[Hg] DO Ana Foley Work Phone: [facility] 02-14-2023 18:00-0500 Heart rate 93 /min DO Ana Foley Work Phone: [facility] 02-14-2023 18:00-0500 Respiratory rate 18 /min DO Aan Foley Work Phone: [facility] 02-14-2023 18:00-0500 SaO2% (BldA) [Mass fraction] 97 % DO Ana Foley Work Phone: [facility] 02-14-2023 18:00-0500 Systolic blood pressure 105 mm[Hg] DO Ana Foley Work Phone: [facility] 02-14-2023 14:31-0500 Body temperature 97.1 [degF] DO Ana Foley Work Phone: [facility] 02-06-2023 11:31-0500 Diastolic blood pressure 82 mm[Hg] DO Ana Foley Work Phone: [facility] 02-06-2023 11:31-0500 Heart rate 80 /min DO Ana Foley Work Phone: [facility] 02-06-2023 11:31-0500 Respiratory rate 18 /min DO Ana Foley Work Phone: [facility] 02-06-2023 11:31-0500 SaO2% (BldA) [Mass fraction] 100 % DO Ana Foley Work Phone: [facility] 02-06-2023 11:31-0500 Systolic blood pressure 128 mm[Hg] DO Ana Foley Work Phone: [facility] 02-06-2023 08:00-0500 Body temperature 98.1 [degF] DO Ana Foley Work Phone: [facility] 02-06-2023 06:00-0500 Body weight 72.6 kg DO Ana Foley Work Phone: [facility] 02-04-2023 12:53-0500 Body height 180.34 cm DO Ana Foley Work Phone: [facility] 02-04-2023 00:02-0500 Diastolic blood pressure 66 mm[Hg] DO Ana Foley Work Phone: [facility] 02-04-2023 00:02-0500 Heart rate 75 /min DO Ana Foley Work Phone: [facility] 02-04-2023 00:02-0500 Respiratory rate 16 /min DO Ana Foley Work Phone: [facility] 02-04-2023 00:02-0500 SaO2% (BldA) [Mass fraction] 99 % DO Ana Foley Work Phone: [facility] 02-04-2023 00:02-0500 Systolic blood pressure 103 mm[Hg] DO Ana Foley Work Phone: [facility] 02-03-2023 19:08-0500 Body height 180.34 cm DO Ana Foley Work Phone: [facility] 02-03-2023 19:08-0500 Body temperature 97.5 [degF] DO Ana Foley Work Phone: [facility] 02-03-2023 19:08-0500 Body weight 76.2 kg DO Ana Foley Work Phone: [facility] 01-31-2023 08:29-0500 Body height 180.34 cm DO Ana Foley Work Phone: [facility] 01-31-2023 08:29-0500 Body mass index (BMI) [Ratio] 23.7 kg/m2 DO Ana Foley Work Phone: [facility] 01-31-2023 08:29-0500 Body weight 77.11 kg DO Ana Foley Work Phone: [facility] 01-31-2023 08:10-0500 Body temperature 98.6 [degF] DO Ana Foley Work Phone: [facility] 01-31-2023 08:10-0500 Diastolic blood pressure 87 mm[Hg] DO Ana Foley Work Phone: [facility] 01-31-2023 08:10-0500 Heart rate 96 /min DO Ana Foley Work Phone: [facility] 01-31-2023 08:10-0500 Respiratory rate 20 /min DO Ana Foley Work Phone: [facility] 01-31-2023 08:10-0500 Systolic blood pressure 136 mm[Hg] DO Ana Foley Work Phone: [facility] 12-16-2022 16:00-0400 Diastolic blood pressure 82 mm[Hg] Thalia O'Gianni PA-C Work Phone: [facility] 12-16-2022 16:00-0400 Heart rate 84 /min Thalia O'Gianni PA-C Work Phone: [facility] 12-16-2022 16:00-0400 Systolic blood pressure 117 mm[Hg] Thalia O'Gianni PA-C Work Phone: [facility] 12-07-2022 14:20-0400 Diastolic blood pressure 78 mm[Hg] DO Ana Foley Work Phone: [facility] 12-07-2022 14:20-0400 Heart rate 82 /min DO Ana Foley Work Phone: [facility] 12-07-2022 14:20-0400 Respiratory rate 18 /min DO Ana Foley Work Phone: [facility] 12-07-2022 14:20-0400 SaO2% (BldA) [Mass fraction] 97 % DO Ana Foley Work Phone: [facility] 12-07-2022 14:20-0400 Systolic blood pressure 127 mm[Hg] DO Ana Foley Work Phone: [facility] 12-07-2022 11:12-0400 Body height 177.8 cm DO Ana Foley Work Phone: [facility] 12-07-2022 11:12-0400 Body weight 70.76 kg DO Ana Foley Work Phone: [facility] 11-22-2022 09:13-0400 Body height 177.8 cm DO Ana Foley Work Phone: [facility] 11-22-2022 09:13-0400 Body mass index (BMI) [Ratio] 21.7 kg/m2 DO Ana Foley Work Phone: [facility] 11-22-2022 09:13-0400 Body weight 68.49 kg DO Ana Foley Work Phone: [facility] 11-22-2022 09:04-0400 Diastolic blood pressure 85 mm[Hg] DO Ana Foley Work Phone: [facility] 11-22-2022 09:04-0400 Heart rate 90 /min DO Ana Foley Work Phone: [facility] 11-22-2022 09:04-0400 Respiratory rate 18 /min DO Ana Foley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 spinal canal tho racic w/o contrast matrl ERIN LUDWIG Start: 09-23-2019 Mri spinal canal cer vical w/o contrast matrl Mariam L [employer] Work Phone: Start: 09-23-2019 Mri spinal canal lum bar w/o contrast material Mariam L [id number] Work Phone: Start: 09-23-2019 Mri spinal canal tho racic w/o contrast matrl Mariam L [id number] Work Phone: Start: 09-23-2019 Ct orbit sella/post [...] 09-23-2019 Calcium ionized ERIN SRINIVASAN Start: 09-23-2019 Comprehensive metabolic panel ERIN LUDWIG Start: 09-23-2019 Hemoglobin glycosylated a1c ERIN LUDWIG Start: 09-23-2019 Radiologic exam ches t single view ERIN LUDWIG Start: 09-23-2019 Blood gases any comb ination ph pco2 po2 co2 hco3 ERIN LUDWIG Start: 09-23-2019 INCENTIVE SPIROMETRY NURSING ERIN LUDWIG Start: 09-23-2019 ARTERIAL BLOOD GAS, POC Erin Austin Ludwig Work Phone: Start: 09-23-2019 LACTIC ACID,POINT OF CARE Erin Avila Oziel Work Phone: Start: 09-23-2019 Assay of lactate Gianni Piedra Work Phone: Start: 09-23-2019 Assay of magnesium Micheal mere Maldonado [employer] Work Phone: Start: 09-23-2019 Assay of phosphorus inorganic Gianni Maldonado Piedra Work Phone: Start: 09-23-2019 BASIC METABOLIC [...] BLOOD GAS, POC ERIN LUDWIG Start: 09-23-2019 Blood count hemoglobin ERIN LUDWIG [...] AL VTE PROPHYLAXIS ERIN LUDWIG Start: 09-23-2019 METAL EXTRUSION SUPERVISOR EVAL AND TREAT MAXWELL LUDWIG Start: 09-23-2019 VITAL SIGNS ERIN Velarde Start: 09-23-2019 ELEVATE HOB ERIN Velarde Start: 09-23-2019 3d rendering w/inter p & postprocess supervision ERIN OZIEL Start: 09-23-2019 Ct lumbar spine w/o contrast material ERIN OZIEL Start: 09-23-2019 Ct thoracic spine w/ o contrast material ERIN OZIEL Start: 09-23-2019 Ct thorax w/contrast material ERIN LUDWIG Start: 09-23-2019 ANION GAP (CALC) POC Sergio sims Austin Ludwig Work Phone: Start: 09-23-2019 ARTERIAL BLOOD GAS, POC Erin Austin Ludwig Work Phone: Start: 09-23-2019 Blood count hemoglobin Erin Austin Ludwig Work Phone: Start: 09-23-2019 CALCIUM, IONIC (POC) Sergio Ludwig Work Phone: Start: 09-23-2019 Chloride [Moles/Vol] Sergio Ludwig Work Phone: Start: 09-23-2019 CREATININE W/GFR POI NT OF CARE Erinnatalie Ludwig Work Phone: Start: 09-23-2019 Gluc bld gluc mntr d ev cleared fda spec home use Erin Ludwig Work Phone: Start: 09-23-2019 LACTIC ACID,POINT OF CARE Erin Ludwig Work Phone: Start: 09-23-2019 Potassium [Moles/Vol] A kermit Ludwig Work Phone: Start: 09-23-2019 Sodium [Moles/Vol] Maxwell Avila Ludwig Work Phone: Start: 09-23-2019 PATIENT STATUS (FROM ED OR OR/PROCEDURAL) ERIN LUDWIG Start: 09-23-2019 Ct cervical spine w/ o contrast material ERIN LUDWIG Start: 09-23-2019 Ct head/brain w/o co ntrast material ERIN LUDWIG Start: 09-23-2019 Ct maxillofacial w/o contrast material ERIN LUDWIG Start: 09-23-2019 Assay of ammonia Nina Frontenac Work Phone: Start: 09-23-2019 Drug screen class [...] Author Start: 10-13-2025 DIABETES SCREEN DIABETES SCREEN [facility] Start: 10-13-2025 Diabetes Screening Diabetes Screening [facility] Start: 10-12-2025 DIABETES SCREEN DIABETES SCREEN [facility] Start: 10-11-2025 DIABETES SCREEN DIABETES SCREEN [facility] Start: 09-22-2025 DIABETES SCREEN DIABETES SCREEN [facility] Start: 08-11-2025 DIABETES SCREEN DIABETES SCREEN [facility] Start: 08-09-2025 DIABETES SCREEN DIABETES SCREEN [facility] Start: 08-02-2025 DIABETES SCREEN DIABETES SCREEN [facility] Start: 07-22-2025 DIABETES SCREEN DIABETES SCREEN [facility] Start: 11-27-2023 Influenza vaccination Influenza Vaccine (Season Ended) [facility] Start: 07-22-2023 Bacteria identified in Urine by Culture [facility] Start: 04-22-2023 Bacteria identified in Blood by Culture [facility] Start: 04-22-2023 Superficial Wound Culture Superficial Wound Culture [facility] Start: 04-19-2023 [facility] Start: 04-18-2023 Administration of prophylactic treatment [facility] Start: 04-15-2023 Referral to cardiology clinical nurse specialist [facility] Start: 04-15-2023 Hospital admission [facility] Start: 03-28-2023 Advance Directive Discussion Advance Directive Discussion [facility] Start: 03-28-2023 Behavioral Health Screening Behavioral Health Screening [facility] Start: 03-28-2023 Depression Assessment Depression Assessment [facility] Start: 03-22-2023 [facility] Start: 2023 Administration of prophylactic treatment [facility] Start: 2023 [facility] Start: 2023 Referral to infectious diseases physician [facility] Start: 2023 Hospital admission [facility] Start: 2023 [facility] Start: 03-14-2023 Bacteria identified in Urine by Culture [facility] Start: 02-06-2023 [facility] Start: 02-04-2023 Hospital admission [facility] Start: 02-04-2023 [facility] Start: 01-10-2023 End: 03-12-2023 Bacteria identified in Urine by Culture [facility] Work Phone: Comment on above: Expected: 01/10/2023, Expires: Start: 11-26-2022 Covid-19 Vaccine () Covid-19 Vaccine () [facility] Start: 11-26-2022 Influenza vaccination [facility] Start: 03-28-2022 ADVANCE DIRECTIVE DISCUSSION ADVANCE DIRECTIVE DISCUSSION [facility] Start: 03-28-2022 DEPRESSION ASSESSMENT DEPRESSION ASSESSMENT [facility] Start: 09-22-2020 HbA1c (Bld) [Mass fraction] A1C test (Diabetic or Prediabetic) [place], [place] Start: 2020 Pneumococcal Vaccine: 65+ (1 - PCV) Pneumococcal Vaccine: 65+ (1 - PCV) [facility] Start: 2020 Pneumococcal Vaccine: 65+ (1 of 1 - PCV) Pneumococcal Vaccine: 65+ (1 of 1 - PCV) [facility] Start: 2020 PNEUMOCOCCAL: 65+ (1 - PCV) PNEUMOCOCCAL: 65+ (1 - PCV) [facility] Start: 11-27-2019 Influenza vaccination Flu vaccine (#1) [place], [place] Start: 2015 RSV Vaccine (1 - 1-dose 60+ series) RSV Vaccine (1 - 1-dose 60+ series) [facility] Start: 2010 PROSTATE CANCER SCREENING DISCUSSION PROSTATE CANCER SCREENING DISCUSSION [facility] Start: 2010 Prostate specific antigen measurement Prostate Cancer Screening Discussion [facility] Start: 2005 Screening for malignant neoplasm of colon Colon cancer screen colonoscopy [place], [place] Start: 2005 Shingles Vaccine (1 of 2) Shingles Vaccine (1 of 2) [place], [place] Start: 2005 SHINGRIX VACCINE (1 of 2) SHINGRIX VACCINE (1 of 2) [facility] Start: 2000 COLOGUARD (FIT-DNA) COLOGUARD (FIT-DNA) [facility] Start: 2000 Colonoscopy COLONOSCOPY [facility] Start: 2000 COLORECTAL CANCER SCREENING COLORECTAL CANCER SCREENING [facility] Start: [address] COLONOGRAPHY [facility] Start: 2000 FECAL OCCULT BLOOD FECAL OCCULT BLOOD [facility] Start: 2000 Screening for malignant neoplasm of colon [facility] Start: 2000 SIGMOIDOSCOPY SIGMOIDOSCOPY [facility] Start: 1995 Lipid panel Lipid screen [place], [place] Start: 1990 Lipid 1996 panel - Serum or Plasma Lipid Screening [facility] Start: 1990 Lipid panel Lipid Screening [facility] Start: 1990 LIPID SCREEN LIPID SCREEN [facility] Start: 1974 DTaP/Tdap/Td vaccine (1 - Tdap) DTaP/Tdap/Td vaccine (1 - Tdap) [place], [place] Start: 1974 Urine microalbumin profile [facility] Start: 1970 HIV screening HIV screen [place], [place] Start: 1955 COVID-19 VACCINE (#1) COVID-19 VACCINE (#1) [facility] Start: 1955 Hepatitis C screening Hepatitis C screen [place], [place] Acapella Acapella Respira tory Care Routine Daily until discontinued starting 09/27/2019 [place] Comment on above: Daily until discontinued starting 2019 Bacteria identified in Unspecified specimen by Aerobe culture [facility] Bacteria identified in Urine by Culture [facility] CATHETER INSERT-HERNANDEZ CATHETER I NSERT-HERNANDEZ Procedures Routine Neurogenic bladder Ordered: 01/09/2023 [facility] Work Phone: Comment on above: Ordered: 01/09/2023 Change cystostomy tu be simple IR SUPRAPUBIC TUBE EXCHANGE Radiology Routine Neurogenic bladder Ordered: 11/25/2022 [facility] Work Phone: Comment on above: Ordered: 11/25/2022 End: 09-23-[address] 3D RECONSTRUCTION Imaging Routine Once for 1 Occurrences starting 09/23/2019 until [facility]: Once for 1 Occurrences starting 09/23/19 20 until 09/23/[address] 3D RECON STRUCTION Imaging STAT 09/23/2019 2:14 AM [facility]T [facility] End: 10-01-2023 Ct abdomen & pelvis w/o contrast material CT FLANK WO IVCON Radiology Routine Calculus of kidney 1 Occurrences starting 09/01/2022 until 10/01/2023 [facility] Work Phone: Comment on above: 1 Occurrences starting 09/01/2022 until 10/01/2023 HERNANDEZ - DISCONTINUE HERNANDEZ - DISC ONTINUE Procedures Routine Neurogenic bladder Ordered: 08/05/2023 [facility] Work Phone: Comment on above: Ordered: 08/05/2023 HERNANDEZ CHANGE HERNANDEZ CHANGE Pro cedures Routine Neurogenic bladder Quadriplegia (HCC) History of spinal cord injury Ordered: 03/02/2023 [facility] Work Phone: Comment on above: Ordered: 03/02/2023 HHN Treatment HHN Treatment Respiratory Care STAT 4X Daily until discontinued starting 09/25/2019 [facility] Comment on above: 4X Daily until discontinued starting Incentive spirometry RT Incentiv e spirometry RT Respiratory Care Routine Every 2hr while awake until discontinued starting 09/27/2019 [facility] Comment on above: Every 2hr while awake until discontinued starting 09/27/2019 Initiate Oxygen Ther apy Protocol Initiate Oxygen Therapy Protocol Respiratory Care Routine Daily until discontinued starting 09/23/2019 [facility] Comment on above: Daily until discontinued starting 2019 IR CENTRAL LINE REMOVAL IR CENTR AL LINE REMOVAL Radiology Routine Pyelonephritis Ordered: 10/05/2022 [facility] Work Phone: Comment on above: Ordered: 10/05/[address] IR NEP HROSTOMY TUBE PLACE Radiology Routine Nephrolithiasis Quadriplegia (HCC) Ordered: 09/09/2022 [facility] Work Phone: Comment on above: Ordered: 09/09/2022 Patient Education [facility] Work Phone: Patient referral [facility] Work Phone: End: 11-26-2023 Radiologic exam abdomen 3+ views XR ABDOMEN 3V KUB W/OBLIQUES Radiology Routine Nephrolithiasis Neurogenic bladder Encounter for care or replacement of suprapubic tube (HCC) 1 Occurrences starting 10/27/2022 until 11/26/2023 [facility] Work Phone: Comment on above: 1 Occurrences starting 10/27/2022 until 11/26/2023 End: 01-15-2024 Radiologic exam abdomen 3+ views XR ABDOMEN 3V KUB W/OBLIQUES Radiology Routine Nephrolithiasis 1 Occurrences starting 12/16/2022 until 01/15/2024 [facility] Work Phone: Comment on above: 1 Occurrences starting 12/16/2022 until 01/15/2024 URINALYSIS, REFLEX MICROSCOPIC URINALYSIS, REFLEX MICROSCOPIC Lab Routine Screening for genitourinary condition Ordered: 12/16/2022 [facility] Work Phone: Comment on above: Ordered: 12/16/2022 End: 11-26-2023 US KIDNEY/BLADDER US KIDNEY/BLADDER Radiology Routine Nephrolithiasis Neurogenic bladder Encounter for care or replacement of suprapubic tube (HCC) 1 Occurrences starting 10/27/2022 until 11/26/2023 [facility] Work Phone: Comment on above: 1 Occurrences starting 10/27/2022 until 11/26/2023 End: 01-16-2024 US KIDNEY/BLADDER US KIDNEY/BLADDER Radiology Routine Nephrolithiasis 1 Occurrences starting 12/16/2022 until 01/16/2024 [facility] Work Phone: Comment on above: 1 Occurrences starting 12/16/2022 until 01/16/2024 End: 11-12-2023 XR ABDOMEN 1V SUPINE XR ABDOMEN 1V SUPINE Radiology Routine Nephrolithiasis 1 Occurrences starting 10/13/2022 until 11/12/2023 [facility] Work Phone: Comment on above: 1 Occurrences starting 10/13/2022 until 11/12/2023 [facility] Payers Date Payer Category Payer Private Health Insurance [id number] 2022 Self-pay [id number] 2021 Medicaid MEDICAID [facility] MEDICAID [id number] 2021-Present [phone] [address] [place] [address] Medicaid [id number] 2020 Medicare [id number]. [id number] 2019 Unknown [id number] 2019 Unknown GENERIC AUTO INS URANCE GENERIC AUTO INSURANCE [id number] 2019-Present 2017 Unknown [id number] 2017 Unknown BCBS BCBS OUT OF STATE [id number] 2017-Present [address] [place] [address] [id number]. [id number] 1959 Medicaid [id number] 2.16.840.1.602712.19 1959 Medicare [id number] 2.16.840.1.524547.19 1955 Unknown [id number] 2.16.840.1.053785.3.579.2. 175 1955 Unknown [id number] 2.16.840.1.819355.3.579.2. 593 1955 Unknown [id number] 2.16.840.1.958639.3.579.2. 593 1955 Unknown [id number] 2.16.840.1.381433.3.579.2. 593 1955 Unknown [id number] 2.16.840.1.629996.3.579.2. 593 1955 Unknown [id number] 2.16.840.1.853337.3.579.2. 593 1955 Unknown [id number] 2.16.840.1.679948.3.579.2. 593 1955 Unknown [id number] 2.16.840.1.927775.3.579.2. 593 1955 Unknown [id number] 2.16.840.1.123382.3.579.2. 593 1955 Unknown [id number] 2.16.840.1.580839.3.579.2. 593 1955 Unknown [id number] 2.16.840.1.641729.3.579.2. 593 1955 Unknown [id number] 2.16.840.1.823808.3.579.2. 593 1955 Unknown [id number] 2.16.840.1.159962.3.579.2. 593 1955 Unknown [id number] 2.16.840.1.203285.3.579.2. 727 1955 Unknown [id number] 2.16.840.1.829740.3.579.2. 727 1955 Unknown [id number] 2.16.840.1.696412.3.579.2. 727 1955 Unknown [id number] 2.16.840.1.959148.3.579.2. 727 1955 Unknown [id number] 2.16.840.1.687585.3.579.2. 727 1955 Unknown [id number] 2.16.840.1.945913.3.579.2. 727 Unknown [id number] 2.16.840.1.235274.3.579.2. 531 Unknown [id number] 2.16.840.1.829869.3.579.2. 531 Unknown [id number] 2.16.840.1.390886.3.579.2. 531 Unknown [id number] 2.16.840.1.197384.3.579.2. 531 Unknown [id number] 2.16.840.1.789568.3.579.2. 531 Unknown [id number] 2.16.840.1.083868.3.579.2. 531 Unknown [id number] 2.16.840.1.654777.3.579.2. 531 Unknown [id number] 2.16.840.1.139829.3.579.2. 531 Unknown [id number] 2.16.840.1.163167.3.579.2. 531 Unknown [id number] 2.16.840.1.920305.3.579.2. 531 Unknown [id number] 2.16.840.1.689416.3.579.2. 531 Social History Date Type Detail Facility Start: 09-25-2019 End: 10-13-2019 Tobacco smoking status SDIS Unknown if ever smoked [facility] Start: 09-25-2019 Alcohol intake [facility]ke [facility] Start: 09-23-2019 Alcohol Comment unable [facility] asses [facility] Start: 1955 [facility] Exposure to SARS-CoV -2 (event) Unable to assess [place] [facility] Start: 07-23-2022 End: 09-01-2022 Sex Assigned At [facility] Start: 07-15-2021 End: 07-22-2023 Tobacco smoking status NHIS Smoker (finding) [facility] Start: 1955 Sex Assigned At Male F [facility] Start: 07-23-2022 End: 08-06-2022 Alcohol intake Ex-drinker (finding) [facility] Start: 07-23-2022 History SDOH Financial 5 [facility] Start: 07-23-2022 History SDOH Food Worry 1 [facility] Start: 07-23-2022 History SDOH Transpo rt Med 2 [facility] Start: 07-23-2022 End: 09-01-2022 History of Social function [facility] How hard is it for y ou to pay for the very basics like food, housing, medical care, and heating Not hard at all [facility] (I/We) worried whecarlo er (my/our) food would run out before (I/we) got money to buy more. Never true [facility] In the past 12 month s, was there a time when you were not able to pay the mortgage or rent on time? No [facility] Start: 03-14-2023 End: 2023 Tobacco smoking status NHIS Never smoked tobacco (finding) [facility] Start: 04-15-2023 Tobacco smoking stat us SDIS Ex-smoker (finding) [facility] Medical Equipment Procedure Code Equipment Code Equipment Original Text Equipment Identifier Dates Screw Multi Axia l 3.5x14mm [id number] Start: 09-24-2019 Screw Lk Infinity Ti Set [id number] Start: 09-24-2019 Impl Librado Pre-Cut 3.5x30mm [id number] Start: 09-24-2019 Impl Spine Librado I nfinity 3.5x40mm [id number] Start: 09-24-2019 Stent Inlay Opti ma 7fr Taper Samish Green Polymer Phreecoat 26cm Ureteral - [id number] Start: 08-09-2022 Tramilena Powerline S urecuff 5fr Polyurethane Catheter 1 Lumen Microintroducer - [id number] Start: 09-24-2022 Stent Inlay Opti ma 7fr Taper Samish Green Phreecoat Polymer 28cm Ureteral - [id number] Start: 10-11-2022 Goals Date Patient Goal Desired Activity /State Functional Status Date Assessment Result Facility 03-22-2023 Functional status Patient at Baseline [facility] Work Phone: 02-06-2023 Functional status Patient at Baseline [facility] Work Phone: Mental Status Date Assessment Result Facility 03-22-2023 Cognitive function Cognitive Sta tus Patient at Baseline [facility] Work Phone: 02-06-2023 Cognitive function Cognitive Sta tus Patient at Baseline [facility] Work Phone: Clinical Notes 01-01-2022 to [...] Doran RN August 05, 2023 4:04 PM [facility] 08-05-2023 Miscellaneous Notes Formattin g of [...] cath removed locally. Please advise. Thanks, Nichole Lyles Adm Urology documented in this encounter [facility] 08-05-2023 Telephone encount er Note Called [...] cath removed locally. Please advise. Thanks, Nichole Lyles Adm Urology [facility] 06-14-2023 Miscellaneous Notes Formattin g of this note is different from the original. Requested Prescriptions Pending Prescriptions Disp Refills trospium (SANCTURA) 20 mg tablet 180 tablet 3 Sig: Take 1 tablet by mouth two times a day before meals. documented in this encounter [facility] 05-11-2023 Miscellaneous Notes Formattin g of this note is different from the original. Requested Prescriptions Pending Prescriptions Disp Refills tamsulosin (FLOMAX) 0.4 mg 30 capsule 0 Sig: Take 1 capsule by mouth once daily. Stop two days after your stent is removed. documented in this encounter [facility] 05-04-2023 Evaluation note Encounter Date Diagnosis [...] home PT/OT, home health aide. Need of social work specialist eval as well given he typically lives alone, difficulty with transportation at times. Apr, Suprapubic catheter (ICD-10 - Z93.59) Recommend snf for catheter care. Apr, Neurogenic bladder (ICD-10 - N31.9) Apr, Constipation (ICD-10 - K59.00) Per patient has been taking miralax daily, he has use of Senna PRN and suppository PRN. Discussed importance of daily miralax for bowel regimen and adequate fluid intake Apr, Pressure ulcer of buttock (ICD-10 - L89.309) Seeing [facility] wound care weekly, requires snf for wound care at home. Apr, Protein calorie malnutrition (ICD-10 - E46) Recommend Ensure BID for sufficient protein intake for wound healing Remind Other 01-22-2024 Hospital Discharge instructionsAmbulatory Orders* Initiate [...] Provide education on above Speech Therapy recommendations [facility] Work Phone: 1(247) 371-853101-17-2024 Evaluation note* Encounter Date Diagnosis Assessment Notes Treatment Notes Treatment Clinical Notes Mar, Thoracic back pain (ICD-10 - M54.6) Remind Other 12-26-2023 Hospital Discharge instructionsAmbulatory Orders* Initiate [...] upright for 30 minutes [facility] Work Phone: 1([phone]) 256-451312-25-2023 Progress note Author Zeinab Poole [facility] March 21, 2023 2:10pm Note Date/Time March 21, 2023 2:10pm [facility] [address] [place] [address] Hospitalist Progress Note Signed Patient: Fede Guerra SR MR#: [id number] : 1955 Acct:[id number] Age/Sex: 68 / M Adm Date: 3 Loc: Room: [address] [place] [address] Type: ADM IN Attending Dr: Fede Darby [...] mg 03/16/23 14:26 Bisacodyl 10 Mg Supp.Rect SC 03/15/24 14:25 DAILY PRN Constipation Calcium Carbonate [...] signed by Zeinab Poole MD> 03/21/23 1410 [facility] Work Phone: 1([phone]) 218-628112-24-2023 Progress note Author Fede Darby [facility] March 20, 2023 8:45pm Note Date/Time March 20, 2023 8:45pm [facility] [address] [place] [address] Hospitalist Progress Note Signed Patient: Fede Guerra SR MR#: [id number] : 1955 Acct:[id number] Age/Sex: 68 / M Adm Date: 3 Loc: Room: [address] [place] [address] Type: ADM IN Attending Dr: Fede Darby DO Copies to: ~ Date of Service: 03/20/2023 Subjective Subjective Narrative: [facility] and [facility] today[facility] No [facility] complaints Physical exam: General [...] Dose Route Start Last Admin Trade Name Luizq PRN Reason Stop Dose Admin Acetaminophen 500 [...] mg 03/16/23 14:26 Bisacodyl 10 Mg Supp.Rect SC 03/15/24 14:25 DAILY PRN Constipation Calcium Carbonate [...] <Electronically signed by Fede Darby DO> 03/20/232044 [facility] Work Phone: 1(173) 796-132312-24-2023 Progress note Author Fede Shah [facility] March 20, 2023 10:46am Note Date/Time March 20, 2023 10:46am [facility] [address] [place] [address] Infect. Disease Progress Note Signed Patient: Fede Guerra SR MR#: [id number] : 1955 Acct:[id number] Age/Sex: 68 / M Adm Date: 3 Loc: Room: [address] [place] [address] Type: ADM IN Attending Dr: Fede Darby [...] 5 Mg Tablet) 5 mg PO DAILY [facility] Stop: 03/18/24 13:04 Last Admin: 03/20/23 08:57 Dose: 5 mg Baclofen (Baclofen 10 Mg Tablet) 10 mg PO TID [facility] Stop: 03/17/24 21:59 Last Admin: 03/20/23 08:58 Dose: 10 mg Bisacodyl (Bisacodyl 10 Mg Supp.Rect) 10 mg SC DAILY PRN PRN Reason: Constipation Stop: 03/15/24 14:25 Calcium Carbonate (Calcium Carbonate 500 Mg Tab.Chew) 1,000 mg PO Q4H PRN PRN Reason: Dyspepsia Stop: 03/16/24 12:56 Last Admin: 03/17/23 13:58 Dose: 1,000 mg Gabapentin (Gabapentin 300 Mg Capsule) 300 mg PO TID [facility] Stop: 03/18/24 13:59 Last Admin: 03/20/23 08:56 [...] 100 mls @ 200 mls/hr IV Q12H [facility] Last Admin: 03/20/23 09:04 Dose: 200 mls/hr Loratadine (Loratadine 10 Mg Tablet) 10 mg PO DAILY [facility] Stop: 03/16/24 08:59 Last Admin: 03/20/23 08:57 Dose: 10 mg Multi-Ingredient Mouthwash/Gargle (Magic Mouthwash With Lidocaine) 5 ml PO [id number] Stop: 03/15/24 09:59 Last Admin: 03/20/23 10:17 Dose: Not Given Ondansetron HCl (Ondansetron Odt 4 Mg Tab.Rapdis) 4 mg PO Q8HR PRN PRN Reason: Nausea And Vomiting Stop: 03/15/24 00:20 Last Admin: 03/17/23 14:03 Dose: 4 mg Pantoprazole Sodium (Pantoprazole 40 Mg Tablet.Dr) 40 mg PO DAILY [facility] Stop: 03/15/24 17:18 Last Admin: 03/20/23 08:57 [...] 10 Ml Syringe) 0 ml IV-PUSH QSHIFT [facility] Stop: 03/15/24 05:59 Last Admin: 03/20/23 06:08 [...] By: <Electronically signed by MD Fede Shah> 03/20/23 1046 [facility] Work Phone: 1([phone]) 184-869912-23-2023 Progress note Author Zeinab Poole [facility] March 19, 2023 1:12pm Note Date/Time March 19, 2023 1:08pm [facility] [address] [place] [address] Hospitalist Progress Note Signed Patient: Lately,Fede Drew SR MR#: [id number] : 1955 Acct:[id number] Age/Sex: 68 / M Adm Date: 3 Loc: Room: [address] [place] [address] Type: ADM IN Attending Dr: Zeinab Poole [...] mg 03/16/23 14:26 Bisacodyl 10 Mg Supp.Rect SC 03/15/24 14:25 DAILY PRN Constipation Calcium Carbonate [...] signed by Zeinab Poole MD> 03/19/23 1312 [facility] Work Phone: [phone] 183-391612-23-2023 Progress note Author Fede Shah [facility] March 19, 2023 10:38am Note Date/Time March 19, 2023 10:12am [facility] [address] [place] [address] Infect. Disease Progress Note Signed Patient: ShanialyFede SR MR#: [id number] : 1955 Acct:[id number] Age/Sex: 68 / M Adm Date: 3 Loc: Room: [address] [place] [address] Type: ADM IN Attending Dr: Zeinab Poole [...] 10 Mg Tablet) 10 mg PO TID [facility] Stop: 03/17/24 21:59 Last Admin: 03/19/23 08:19 Dose: 10 mg Bisacodyl (Bisacodyl 10 Mg Supp.Rect) 10 mg SC DAILY PRN PRN Reason: Constipation Stop: 03/15/24 14:25 Calcium Carbonate (Calcium Carbonate 500 Mg Tab.Chew) 1,000 mg PO Q4H PRN PRN Reason: Dyspepsia Stop: 03/16/24 12:56 Last Admin: 03/17/23 13:58 Dose: 1,000 mg Gabapentin (Gabapentin 100 Mg Capsule) 200 mg PO TID [facility] Stop: 03/17/24 21:59 Last Admin: 03/19/23 08:15 Dose: 200 mg Heparin Sodium (Porcine) (Heparin 5,000 Unit/Ml Vial) 5,000 unit SUBCUT Q12HR [facility] Stop: 03/15/24 08:59 Last Admin: 03/19/23 08:19 Dose: 5,000 unit Hydralazine HCl (Hydralazine 20 Mg/Ml Vial) 10 mg IV-PUSH Q4H PRN PRN Reason: if SBP > 185 Stop: 03/16/24 12:57 Tigecycline (Tygacil) 50 mg in 100 mls @ 200 mls/hr IV Q12H [facility] Last Admin: 03/19/23 08:20 Dose: 200 mls/hr Loratadine (Loratadine 10 Mg Tablet) 10 mg PO DAILY [facility] Stop: 03/16/24 08:59 Last Admin: 03/19/23 08:19 Dose: 10 mg Multi-Ingredient Mouthwash/Gargle (Magic Mouthwash With Lidocaine) 5 ml PO [id number] Stop: 03/15/24 09:59 Last Admin: 03/19/23 09:17 Dose: Not Given Ondansetron HCl (Ondansetron Odt 4 Mg Tab.Rapdis) 4 mg PO Q8HR PRN PRN Reason: Nausea And Vomiting Stop: 03/15/24 00:20 Last Admin: 03/17/23 14:03 Dose: 4 mg Pantoprazole Sodium (Pantoprazole 40 Mg Tablet.Dr) 40 mg PO DAILY [facility] Stop: 03/15/24 17:18 Last Admin: 03/19/23 08:19 Dose: 40 mg Polyethylene Glycol (Polyethylene Glycol 3350 17 Gm Powd.Pack) 17 gm PO DAILY [facility] Stop: 03/17/24 08:59 Last Admin: 03/19/23 08:20 [...] signed by MD Fede Shah> 03/19/23 1038 [facility] Work Phone: 1(219) 757-906012-22-2023 Progress note Author Zeinab Poole [facility] March 18, 2023 2:14pm Note Date/Time March 18, 2023 2:14pm [facility]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
[2023-11-20 05:40] VITALS: BP 140/70; PULSE 76; TEMP 37; O2SAT 99; BMI 23.1
--- NOTE | 2023-11-20 06:00 | ED_ITS ---
HPI HPI - General Adult General Chief complaint: Weakness Time Seen by Provider: 11/20/23 05:31 Source: patient Mode of arrival: ambulance Limitations: no limitations History of Present Illness HPI narrative: 68-year-old male to the emergency department with chief complaint of malaise, fatigue, generalized weakness. Patient reports that he urinary tract infection 2 months ago with similar symptoms. He is concerned this is what is going on. He is quadriplegic and gets extremity spasms. He takes baclofen for this. Spasms worse tonight which tends to happen when he is ill per his report. He denies any fever, sweats, chills. Denies any abdominal pain. Related Data Home Medications ?Medication ?Instructions ?Recorded ?Confirmed baclofen 20 mg tablet 20 mg PO BID pain 03/15/23 09/06/23 loratadine 10 mg tablet 10 mg PO Q24H 03/15/23 09/06/23 trospium 20 mg tablet 20 mg PO Q12H 03/15/23 09/06/23 ammonium lactate 12 % topical cream 1 applic topical BID 09/06/23 09/06/23 baclofen 10 mg tablet 10 mg PO Q8H PRN spasms 09/06/23 09/06/23 gabapentin 600 mg tablet 600 mg PO Q8H 09/06/23 09/06/23 nystatin 100,000 unit/gram topical 1 applic topical BID 09/06/23 09/06/23 powder Previous Rx's ?Medication ?Instructions ?Recorded ertapenem 1 gram solution for 1 g IV DAILY 13 days #13 ea 09/06/23 injection ampicillin-sulbactam 3 gram 27 g IV .q24 14 days 09/07/23 intravenous solution doxycycline monohydrate 100 mg 100 mg PO BID 11 days #22 caps 09/12/23 capsule levofloxacin 750 mg tablet 750 mg PO QD 11 days #11 tabs 09/12/23 Allergies Allergy/AdvReac Type Severity Reaction Status Date / Time No Known Drug Allergies Allergy Verified 11/20/23 05:43 Opioid HPI Opioid Management Most Recent Opioid Data: Last Pain Scale 8 09/11/23 18:50 Last ORT Total Score 0 09/06/23 04:36 Last ORT Risk Category Low Risk 09/06/23 04:36 Review of Systems 2 ROS Status of ROS 10 or more systems reviewed and unremark able except as noted in history and below [facility] Medical History (Updated 11/20/23 @ 06:27 by Ronald Aleman MD) Chronic indwelling Hernandez catheter ?Z97.8 - Presence of other specified devices (ICD-10) Social History Smoking status: Current every day smoker Highest level of school completed/degree received: high school graduate Exam Narrative Exam Narrative: VITALS: I have reviewed the triage vital signs. GENERAL: Adult -Cymro male in no distress NEURO: Alert and oriented. 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 Face is symmetric and expressive. EYES: PERRL. No scleral icterus or conjunctival injection. No discharge. HENT: Normocephalic, atraumatic. Hearing is grossly intact. Nares grossly patent and without discharge. Mucous membranes moist. NECK: No JVD. Patient moves neck without restriction. CARDIO: Rhythm regular. Normal rate. No murmur, rub, or gallop. Pulses equal bilaterally in the upper and lower extremity. No lower extremity edema. PULM: Lungs clear to auscultation in all diana. No wheezes, rales, or rhonchi. No conversational dyspnea. No splinting, stridor, or accessory muscle use. GI/: Abdomen is soft and non-tender. Normoactive bowel sounds. EXTREMITIES: Symmetric muscle bulk. No joint swelling. No clubbing, cyanosis, or deformity. SKIN: Warm and dry. Normal turgor. No rash or lesions appreciated. PSYCH: Mood, affect, and interaction is appropriate to the setting. Constitutional Vital Signs, click to edit/add: Last Vital Signs Temp 98.6 F 11/20/23 05:40 Pulse 76 11/20/23 05:40 Resp 20 11/20/23 05:40 BP 140/70 11/20/23 05:40 Pulse Ox 99 11/20/23 05:40 O2 Del Method Room Air 11/20/23 05:40 Course Vital Signs Vital signs: Vital Signs Temperature 98.6 F 11/20/23 05:40 Pulse Rate 76 11/20/23 05:40 Respiratory Rate 20 11/20/23 05:40 Blood Pressure 140/70 11/20/23 05:40 Pulse Oximetry 99 11/20/23 05:40 Oxygen Delivery Method Room Air 11/20/23 05:40 Temperature 98.6 F 11/20/23 05:40 Pulse Rate 76 11/20/23 05:40 Respiratory Rate 20 11/20/23 05:40 Blood Pressure 140/70 11/20/23 05:40 Pulse Oximetry 99 11/20/23 05:40 Oxygen Delivery Method Room Air 11/20/23 05:40 Medical Decision Making MDM Narrative Medical decision making narrative: 68-year-old male to the emergency department with malaise, concern for UTI/bacteremia. Muscle spasms. Vital stable, the patient. Basic labs ordered. Valium and magnesium for his muscle spasms not responsive to baclofen alone at home. Nursing staff notified me that he changed his mind and does not want to receive care. He would like to leave AMA. He reports his nurse will come on Tuesday and handle things for him. The patient left AMA. Medical Records Medical records reviewed: Yes I reviewed the patient's medical records Discharge Plan Discharge Stand Alone Forms: Portal Instructions Chief Complaint: Weakness Clinical Impression: Spasmodic movement of extremities, Left against medical advice Patient Disposition: Left Against Medical Advice Time of Disposition Decision: 06:25 Condition: Fair Prescriptions / Home Meds: No Action baclofen 20 mg tablet 20 mg PO BID loratadine 10 mg tablet 10 mg PO Q24H trospium 20 mg tablet 20 mg PO Q12H Rx Instructions: before meals ammonium lactate 12 % cream 1 applic TOPICAL BID ertapenem 1 gram recon soln 1 g IV DAILY 13 Days Qty: 13 0RF Rx Instructions: Mixed w/ 50 mls NS to be given IVPB baclofen 10 mg tablet 10 mg PO Q8H PRN (Reason: spasms) gabapentin 600 mg tablet 600 mg PO Q8H nystatin 100,000 unit/gram powder 1 applic TOPICAL BID ampicillin-sulbactam 3 gram recon soln 27 g IV .q24 14 Days Rx Instructions: Continuous infusion per pump doxycycline monohydrate 100 mg Capsule 100 mg PO BID 11 Days Qty: 22 0RF levofloxacin 750 mg Tablet 750 mg PO QD 11 Days Qty: 11 0RF Print Language: Kyrgyz Instructions: Muscle Spasm (ED), Against Medical Advice (ED) Additional Instructions: Call the office of your primary care doctor to arrange for follow-up within the above-stated timeframe. Your ED visit was focused on your acute issue and does not replace primary care. You should review your labs, imaging, and diagnoses from this ED visit with your primary care physician. There may be non-emergent/ incidental findings that need further evaluation. You should review your vital signs including blood pressure with your PCP. If you were prescribed medications you should discuss possible side-effects and drug interactions with your pharmacist. Call 911 or go to the nearest Emergency Department if you develop any new or worsening symptoms. You may return at any time to continue your care. Referrals: Physician,Non-Staff, MD [Primary Care Provider] - 1 week
== END 2023-11-20 09:21 | disposition left against medical advice (07) ==
PROVIDERS: Emergency Provider Student in an Organized Health Care Education/Training Program
DX: M62.838 Other muscle spasm (principal); Z87.440 Personal history of urinary (tract) infections; Z53.29 Procedure and treatment not carried out because of patient's decision for other reasons; F17.200 Nicotine dependence, unspecified, uncomplicated
CPT/HCPCS: 80053; 83605; 83735; 87040; 99283

== ENCOUNTER 2024-04-18 11:59 | Outpatient (OUT) | payer MEDICARE, MEDICAID, SELFPAY ==
--- NOTE | 2024-04-18 12:09 | XR_ITS ---
The [address] [address] Patient Name: FEDE ARGUETA MRN: [id number] date: 1955 Sex: M Assigned Patient Location: [facility] Current Patient Location: Accession/Order Number: [id number] Exam Date: 04/18/2024 12:25 Report Date: 04/19/2024 05:49 At the request of: LISA WEBBER Procedure: XR abdomen 1V EXAMINATION: XR abdomen 1V HISTORY: kidney stone COMPARISON: No relevant comparison available. FINDINGS: KIDNEY/URETER - RIGHT: No visible renal or ureteral calcifications. KIDNEY/URETER - LEFT: No visible renal or ureteral calcifications. PELVIS: No appreciable ureteral stones. Stable pelvic calcifications compatible with phleboliths. Catheter within the bladder. BOWEL: No abnormal dilation or deviation. BONES: Moderate degenerative change of the hip joints. OTHER: Negative. No abnormal gaseous collections. XR/XR abdomen 1V IMPRESSION: 1. No appreciable urinary tract calculi. Evaluation is limited by overlying bowel. Electronically authenticated by: MINERVA REN Date: 04/19/2024 05:49
== END 2024-04-18 12:00 | disposition home or self-care (01) ==
LOC: RAD 12:02
PROVIDERS: PCP Nurse Practitioner; Visit Provider Nurse Practitioner
DX: N20.0 Calculus of kidney (principal)
CPT/HCPCS: 74018

== ENCOUNTER 2024-05-18 12:52 | Outpatient (OUT) | payer MEDICARE, MEDICAID, SELFPAY ==
--- NOTE | 2024-05-18 12:55 | US_ITS ---
The [address] [address] Patient Name: FEDE ARGUETA MRN: [id number] date: 1955 Sex: M Assigned Patient Location: [place] Current Patient Location: [place] Accession/Order Number: [id number] Exam Date: 05/18/2024 14:04 Report Date: 05/18/2024 14:09 At the request of: LISA WEBBER Procedure: US renal BI US renal BI 05/18/2024 1:55 PM SIGNS AND SYMPTOMS: Hematuria, History Of Stones COMPARISON: 04/15/2023 FINDINGS: Right kidney measures 11.1 x 5.6 x 5.0 cm . No hydronephrosis or mass. There are tiny echogenic 1 mm foci with accompanying technical artifact suspicious for tiny stones. The right renal cortex measures 1.1 cm in thickness. Left kidney measures 11.0 x 4.9 x 5.2 cm . No hydronephrosis or mass. There is an anechoic simple cyst measuring 1 cm in greatest dimension. The left renal cortex measures 1.7 cm in thickness. There is a tiny isoechoic structure adjacent to the spleen measuring up to 1.2 cm in greatest dimension. This is consistent with a small splenule seen near the inferior pole the spleen on the previous CT. A Hernandez catheter is present in the bladder. The bladder is decompressed. The bladder wall is within normal limits. IMPRESSION: Tiny echogenic 1 mm stones are noted in the right renal collecting system. No hydronephrosis or mass. Impression dictated by: George Pitts M.D.05/18/2024 2:09 PM Dictation Location: [place] [address] Electronically authenticated by: [id number] Y Date: 05/18/2024 14:09
== END 2024-05-18 12:53 | disposition home or self-care (01) ==
LOC: US 12:52
PROVIDERS: PCP Nurse Practitioner; Visit Provider Nurse Practitioner
DX: R31.9 Hematuria, unspecified (principal); N20.0 Calculus of kidney; N28.1 Cyst of kidney, acquired
CPT/HCPCS: 76775

== ENCOUNTER 2024-09-21 13:35 | Outpatient (REF) | payer MEDICARE, MEDICAID, SELFPAY ==
--- OUTSIDE RECORDS SUMMARY | 2023-11-11 06:00 | XMS_ITS | Continuity of Care Document ---
Author Organization [facility] Address [address] [place] [address] Phone Care Team Providers Care Principal Military Analyst Name Role Phone Tyler PALOMO Abdi Unavailable Unavailable Allergies, Adverse Reactions, Alerts Substance Reaction Status Criticality No Known Allergies Active No Inform ation Procedures Procedure Date Intraoral-complete Series (bw) Oral Hygiene Instruction Limited Oral Eval Advance Directives Directive Yes / No Effective Date File Name No Information Encounters Encounter Description Practice Location Reason(s) For Visit Diagnoses Date Provider Providers Copied on Encounter [facility], [address], [place], [id number], [place] tel:[phone] Dental Clinic dental new (chief complaint) Encounter for screening for dental disorders Tyler Patton. [address] [place] [address], [place], [id number], [place]. tel:[phone] Family History Family Member Type Diagnosis Age At Onset No Information Payers Payer name Insurance type Covered democrat ID Migdalia wheat(s) D Medicaid Primary [facility] [id number] Social History Type Description Quantity Date Captured Comments Alcohol Use Details Unknown Caffeine Use Details Unknown Tobacco Use Status No Information Smoking Status No Information Sex Male Sexual Orientation Straight or heterosexual Gender Identity Male Vital Signs Date / Time: Height Weight BMI Pulse Rate Blood Pressure Temperature Respiratory Rate Body Surface Area Head Circumference Head Circ. Percentile Wt./Del. Percentile BMI percentile Pulse Ox Inhaled Ox 11:19 AM 98 /min 124/84 mm[Hg] 97.80 F Chief Complaint And Reason For Visit From encounter dated '11/11/2023 10:00'. dental new (chief complaint). Description: establish dental care Reason For Referral Reason For Referral No Information Plan Of Treatment Date Type Action Status Goal Tdap Vaccine. Due on 2023 due Goal Colonoscopy. Due on due Goal FIT. Due on due Goal Lipid panel. Due on due Goal Unhealthy drug use screening . Due on due Goal Influenza vaccine. Due on Au due Goal CT-Colonography. Due on due Goal PRAPARE ASSESSMENT. Due on A due Goal Tdap. Due on due Goal Hep A. Due on du e Goal FIT-DNA. Due on due Goal Depression screening. Due on due Goal FOBT. Due on due Goal Zoster vaccine (1st). Due on due Goal Hepatitis C screening. Due o n due History Of Present Illness Encounter Date Complaint History Of Prese nt Illness dental new establish dental care Functional Status Date Functional Assessmen t No Information Instructions Date Instruction Additional Infor mation No Information Assessments Type Assessment Date No Information Patient Care Teams Name Effective Dates (start - stop) Status Members No Information
--- OUTSIDE RECORDS SUMMARY | 2024-09-21 13:39 | XMS_ITS | Referral Summary ---
Author Organization [facility] Address [address] [place] [address] Care Team Providers Care Lead Trainer Name Role Phone Unavailable Primary Care Provider Unavailabl e Allergies No known active allergies Medications atorvastatin (Lipitor) 10 mg tablet Take 10 mg by mouth in the morning. 12/16/2021 Active cholecalciferol (D3-5) 5,000 Units tablet Take 5,000 Units by mouth in the morning. 12/16/2021 Active gabapentin (Neurontin) 300 mg capsule Take 300 mg by mouth in the morning, afternoon, and at bedtime. 04/09/2022 Active loratadine (Claritin) 10 mg tablet TAKE 1 TABLET (10 MG) BY MOUTH DAILY. 01/25/2022 Active oxybutynin XL (Ditropan-XL) 5 mg 24 hr tablet Take 5 mg by mouth in the morning and 5 mg in the evening. 03/14/2021 Active tamsulosin (Flomax) 0.4 mg 24 hr capsule Take 0.4 mg by mouth in the morning. 04/18/2021 Active thiamine (Vitamin B-1) 100 mg tablet Take 100 mg by mouth. 10/04/2019 Active traMADol (Ultram) 50 mg tablet Take 50 mg by mouth if needed in the morning and at bedtime. 01/25/2022 Active baclofen (Lioresal) 10 mg tablet Take 10 mg by mouth if needed in the morning, at noon, and at bedtime. 04/09/2022 Active Social History Tobacco Use Types Packs/Day Years Used Date Smoking Tobacco: Never Assessed [place] Safety & Environment Answer Date Rec orded Fear of Current or Ex-Partner Not on file Emotionally Abused Not on file 05/19/2023 Physically Abused Not on file 05/19/2023 Sexually Abused Not on file 05/19/2023 Physically or Sexually Abused Not on file Sex and Gender Information Value Date Recorded Sex Assigned at Not on file Legal Sex Male 3:24 PM EST Gender Identity Not on file Sexual Orientation Not on file Plan of Treatment Not on file Insurance MEDICARE [place]
--- OUTSIDE RECORDS SUMMARY | 2024-09-21 13:39 | XMS_ITS | Encounter Summary ---
Author Organization [facility] Address [address] [place] [id number] Care Team Providers Care Licensed Social Worker Name Role Phone Ana Yadav Primary Care Provider [phone] Source Comments In the event this information is protected by the Federal Confidentiality of Alcohol and Drug AbusePatient Records regulations: The Federal rules restrict any use of the information to criminally investigate or prosecute any alcohol or drug abuse patient.[facility] Encounter Details Date Type Department Care Team ([facility] Contact Info) Description 11/22/2022 Patient Msg [facility] [place] [address] Provider, [facility] Appointment Social History Tobacco Use Types Packs/Day Years Used Date Smoking Tobacco: Never Assessed Alcohol Use Standard Drinks/Week Comments Not Currently 0 (1 standard drink = 0.6 oz pur e alcohol) Overall Financial Resource Strain (CARDIA) Answe r Date Recorded How hard is it for you to pa y for the very basics like food, housing, medical care, and heating? Not hard at all 07/23/2022 Hunger Vital Sign Answer Date Recorded Within the past 12 months, y ou worried that your food would run out before you got the money to buy more. Never true 07/24/19 23 Within the past 12 months, t he food you bought just didn't last and you didn't have money to get more. Never true 07/23/2022 PRAPARE - Transportation Answer Date Re corded In the past 12 months, has l ack of transportation kept you from medical appointments or from getting medications? No 06/27 In the past 12 months, has l ack of transportation kept you from meetings, work, or from getting things needed for daily living? No 07/23/2022 Housing Stability Vital Sign Answer Cedrick e Recorded In the last 12 months, was t here a time when you were not able to pay the mortgage or rent on time? No 07/23/2022 Number of Places Lived in the Last Year Not on f ile 07/23/2022 In the last 12 months, was t here a time when you did not have a steady place to sleep or slept in a mcc (including now)? No 07/23/2022 Area Deprivation Index Answer Date Aditya rded National Score (1-100), lower number is lower ri sk 63 09/01/2022 State Score (1-10), lower number is lower risk 4 09/01/2022 Data from: https://www.neighborhoodatlas.medicine.[facility].edu/. Last address used for calculation [address] 09/01/2022 Sex and Gender Information Value Date Recorded Sex Assigned at Not on file Legal Sex Male 12:38 PM EDT Gender Identity Not on file Sexual Orientation Not on file documented as of this encounter Functional Status * Are you deaf or do you have serious difficulty hearing? Answer Date of Assessment Author No 09/26/2022 2:25 PM EDT Katarina Bustos RN * Are you blind or do you have serious difficulty seeing, even when wearing glasses? Answer Date of Assessment Author No 09/26/2022 2:25 PM EDT Katarina Bustos RN * Do you have serious difficulty walking or climbing stairs? Answer Date of Assessment Author Yes 09/26/2022 2:25 PM EDT Katarina Bustos RN * Do you have difficulty dressing or bathing? Answer Date of Assessment Author Yes 09/26/2022 2:25 PM EDT Katarina Bustos RN * Because of a physical, mental, or emotional condition, do you have difficulty doing errands alone such as visiting a doctor's office or shopping? Answer Date of Assessment Author Yes 09/26/2022 2:25 PM EDT Katarina Bustos RN documented as of this encounter Mental Status * Because of a physical, mental, or emotional condition, do you have serious difficulty concentrating, remembering, or making decisions? Answer Entry Date Author No 09/26/2022 2:25 PM EDT Katarina Bustos RN documented in this encounter Plan of Treatment Not on file documented as of this encounter Visit Diagnoses Not on filedocumented in this encounter Care Teams Licensed Social Worker Relationship Specialty Start Date End Date Ana Yadav DO [address] [facility] [place] [address] PCP - General Family Medicine 07/14/22 documented as of this encounter
--- OUTSIDE RECORDS SUMMARY | 2024-09-21 13:39 | XMS_ITS | Clinical Summary ---
Author Organization [facility] Address [address] [place] [address] Phone Care Team Providers Care Bottle Selector Name Role Phone Unavailable Primary Care Provider Unavailabl e Social History Tobacco Use Types Packs/Day Years Used Date Smoking Tobacco: Never Assessed Sex and Gender Information Value Date Recorded Sex Assigned at Not on file Legal Sex Male 9:10 AM EST Gender Identity Not on file Sexual Orientation Not on file Plan of Treatment Health Maintenance Due Date Last Done Comments CT Colonography 1955 Colonoscopy 1955 Colorectal Cancer Screening 1955 FIT-DNA (Cologuard) 1955 FIT 1955 Lipid Panel 1955 Medicare Annual Wellness Vis it (AWV) 1955 Sigmoidoscopy 1955 Skin Cancer Screening 1955 Hepatitis C Screening 1973 DTaP/Tdap/Td Vaccines (1 - Tdap) 1977 Pneumococcal Vaccine (1 of 1 - PCV) 2005 Zoster Vaccines (1 of 2) 2005 COVID-19 Vaccine (1 - 2023-2 5 season) 2023 Influenza Vaccine (Season Ended) 2024 RSV High Risk: (Elderly (60+ ) or Population) (1 - 1-dose 75+ series) 2030 HIB Vaccines Aged Out No longer eligi ble based on patient's age to complete this topic HPV Vaccines (No Doses Required) Completed Hepatitis A Vaccines Aged Out No long er eligible based on patient's age to complete this topic Hepatitis B Vaccines Aged Out No long er eligible based on patient's age to complete this topic IPV Vaccines Aged Out No longer eligi ble based on patient's age to complete this topic Meningococcal Vaccine Aged Out No kimberly eliane eligible based on patient's age to complete this topic Rotavirus Vaccines Aged Out No longer eligible based on patient's age to complete this topic Insurance MEDICAID MEDICAID
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
--- OUTSIDE RECORDS SUMMARY | 2024-09-21 13:39 | XMS_ITS | Encounter Summary ---
Author Organization [facility] Address [address] [place] [address] Care Team Providers Care Repair Coil Winder Name Role Phone Ana Yadav DO Primary Care Provider [phone] Encounter Details Date Type Department Care Team (Latest Contact Info) Description 05/08/2024 Abstract [facility] Robbi Novak MD [address] [facility] [address] [place] [address] Social History Tobacco Use Types Packs/Day Years Used Date Smoking Tobacco: Every Day Cigarettes Smokeless Tobacco: Never Sex and Gender Information Value Date Recorded Sex Assigned at Not on file Legal Sex Male 6:54 PM EDT Gender Identity Not on file Sexual Orientation Not on file documented as of this encounter Plan of Treatment Not on file documented as of this encounter Visit Diagnoses Not on filedocumented in this encounter Care Teams Repair Coil Winder Relationship Specialty Start Date End Date Ana Yadav DO PCP - General Family Medicine 05/24/23 documented as of this encounter
--- OUTSIDE RECORDS SUMMARY | 2024-09-21 13:39 | XMS_ITS | Clinical Summary ---
Author Organization [facility] Address [address] [place] [address] Care Team Providers Care Hard Tile Setter Apprentice Name Role Phone Unavailable Primary Care Provider [...] Colonoscopy 1955 Colorectal Cancer Screening 1955 FIT-DNA 1955 FIT 1955 FOBT 1955 Medicare Annual Wellness (AWV) 1955 Sigmoidoscopy 1955 Depression Screening 1967 Pneumococcal Vaccine: 50+ Ye ars (1 of 2 - PCV) 1974 Adult Tetanus 1977 Zoster Vaccines (1 of 2) 2005 Fall Risk Screening 2020 COVID-19 Vaccine ( - 2023-2 5 season) 2023 Influenza Vaccine (Season Ended) 2024 HIB Vaccines Aged Out No longer eligi ble based on patient's age to complete this topic HPV Vaccines Aged Out No longer eligi ble based on patient's age to complete this topic IPV Vaccines Aged Out No longer eligi ble based on patient's age to complete this topic Meningococcal B Vaccine Aged Out No l onger eligible based on patient's age to complete this topic Meningococcal Vaccine Aged Out No kimberly eliane eligible based on patient's age to complete this topic Rotavirus Vaccines Aged Out No longer eligible based on patient's age to complete this topic Insurance MEDICARE MEDICAID [place]
--- OUTSIDE RECORDS SUMMARY | 2024-09-21 13:39 | XMS_ITS | Encounter Summary ---
Author Organization [facility] Address [address] [place] [address] Care Team Providers Care Audio Video Technician Name Role Phone Ana Yadav Primary Care Provider [phone] Source Comments In the event this information is protected by the Federal Confidentiality of Alcohol and Drug AbusePatient Records regulations: The Federal rules restrict any use of the information to criminally investigate or prosecute any alcohol or drug abuse patient.[facility] Encounter Details Date Type Department Care Team ([facility] Contact Info) Description 07/14/2022 Patient Msg Urology [address] [id number] Provider, [facility] [place] UROLOGY PRE OP~SURGERY INSTRUCTIONS Social History Tobacco Use Types Packs/Day Years Used Date Smoking Tobacco: Never Assessed Alcohol Use Standard Drinks/Week Comments Not Currently 0 (1 standard drink = 0.6 oz pur e alcohol) Area Deprivation Index Answer Date Aditya rded National Score (1-100), lower number is lower ri sk 90 06/29/2022 State Score (1-10), lower number is lower risk N ot on file 06/29/2022 Data from: https://www.neighborhoodatlas.medicine.[facility].edu/. Last address used for calculation [address] 06/29/2022 Sex and Gender Information Value Date Recorded Sex Assigned at Not on file Legal Sex Male 12:38 PM EDT Gender Identity Not on file Sexual Orientation Not on file documented as of this encounter Plan of Treatment Not on file documented as of this encounter Visit Diagnoses Not on filedocumented in this encounter Additional Health Concerns Infection Onset Date Last Indicated Resolved Time COVID-19 Rule-Out 09/19/2022 09/19/2022 09/19/2022 4:32 AM EDT COVID-19 Rule-Out 09/24/2022 09/24/2022 09/24/2022 4:57 PM EDT documented as of this encounter Care Teams Audio Video Technician Relationship Specialty Start Date End Date Ana Yadav DO [address] [place] [address] PCP - General Family Medicine 07/14/22 documented as of this encounter
--- OUTSIDE RECORDS SUMMARY | 2024-09-21 13:39 | XMS_ITS | Encounter Summary ---
Author Organization [facility] Address [address] [place] [address] Care Team Providers Care Drafter Electrical Name Role Phone Ana Yadav DO Primary Care Provider [phone] Encounter Details Date Type Department Care Team (Latest Contact Info) Description 03/13/2024 Abstract [facility] Robbi Novak MD [address] [facility] [address] [place] [address] Social History Tobacco Use Types Packs/Day Years [...] on filedocumented in this encounter Care Teams Drafter Electrical Relationship Specialty Start Date End Date Ana Yadav DO PCP - General Family Medicine 05/24/23 documented as of this encounter
--- OUTSIDE RECORDS SUMMARY | 2024-09-21 13:39 | XMS_ITS | Encounter Summary ---
Author Organization [facility] Address [address] [place] [address] Phone Care Team Providers Care Weight Clerk Name Role Phone Unavailable Primary Care Provider Unavailabl e Encounter Details Date Type Department Care Team (Late st Contact Info) Description 2023 Scanned Document [facility] [address] [place] [address] Scanning, Generic Provider Social History Tobacco Use Types Packs/Day Years Used Date Smoking Tobacco: Never Assessed Sex and Gender Information Value Date Recorded Sex Assigned at Not on file Legal Sex Male 9:10 AM EST Gender Identity Not on file Sexual Orientation Not on file documented as of this encounter Plan of Treatment Not on file documented as of this encounter Procedures Procedure Name Priority Date/Time Associated Diagnosis Comments ECHOCARDIOGRAM 2023 documented in this encounter Results * ECHOCARDIOGRAM (2023) Narrative 2023 Ordered by an unspecified provider. us Generic Provider Scanning CV ECHO PROCEDURES Fin al Result documented in this encounter Visit Diagnoses Not on filedocumented in this encounter
--- OUTSIDE RECORDS SUMMARY | 2024-09-21 13:39 | XMS_ITS | Encounter Summary ---
Author Organization [facility] Address [address] [place] [address] Care Team Providers Care Telehealth Nurse Name Role Phone Ana Yadav Primary Care Provider [phone] Source Comments In the event this information is protected by the Federal Confidentiality of Alcohol and Drug AbusePatient Records regulations: The Federal rules restrict any use of the information to criminally investigate or prosecute any alcohol or drug abuse patient.[facility] Encounter Details Date Type Department Care Team ([facility] Contact Info) Description 09/09/2022 Patient Msg [facility] [address] [place] [id number] Provider, [facility] Pre Op Surgery Instructions Social History Tobacco Use Types Packs/Day Years [...] place to sleep or slept in a [place] health care facility (including now)? No 07/23/2022 Area Deprivation Index Answer Date Aditya rded National Score (1-100), lower number is lower ri sk 63 09/01/2022 State Score (1-10), lower number is lower risk 4 09/01/2022 Data from: https://www.neighborhoodatlas.medicine.[facility].edu/. Last address used for calculation [address] 09/01/2022 Sex and Gender Information Value Date Recorded Sex Assigned at Not on file Legal Sex Male 12:38 PM EDT Gender Identity Not on file Sexual Orientation Not on file documented as of this encounter Functional Status * Are you deaf or do you have serious difficulty hearing? Answer Date of Assessment Author No 08/13/2022 11:14 AM Colton Elizabeth i, RN * Are you blind or do you have serious difficulty seeing, even when wearing glasses? Answer Date of Assessment Author No 08/13/2022 11:14 AM Colton Elizabeth i, RN * Do you have serious difficulty walking or climbing stairs? Answer Date of Assessment Author Yes 08/13/2022 11:14 AM Colton Elizabeth i, RN * Do you have difficulty dressing or bathing? Answer Date of Assessment Author Yes 08/13/2022 11:14 AM EDT Colton Trujillo i, RN * Because of a physical, mental, or emotional condition, do you have difficulty doing errands alone such as visiting a doctor's office or shopping? Answer Date of Assessment Author Yes 08/13/2022 11:14 AM EDT Colton Trujillo i, RN documented as of this encounter Mental Status * Because of a physical, mental, or emotional condition, do you have serious difficulty concentrating, remembering, or making decisions? Answer Entry Date Author Yes 08/13/2022 11:14 AM EDT Colton Trujillo i, RN documented in this encounter Plan of Treatment Not on file documented as of this encounter Visit Diagnoses Not on filedocumented in this encounter Additional Health Concerns Infection Onset Date Last Indicated Resolved Time COVID-19 Rule-Out 09/19/2022 09/19/2022 09/19/2022 4:32 AM EDT COVID-19 Rule-Out 09/24/2022 09/24/2022 09/24/2022 4:57 PM EDT documented as of this encounter Care Teams Telehealth Nurse Relationship Specialty Start Date End Date Ana Yadav DO [address] [facility] [place] [address] PCP - General Family Medicine 07/14/22 documented as of this encounter
--- OUTSIDE RECORDS SUMMARY | 2024-09-21 13:39 | XMS_ITS | Clinical Summary ---
Author Organization [facility] Address [address] [place] [address] Care Team Providers Care Senior Counsel Name Role Phone Ana Yadav DO Primary Care Provider [phone] Allergies No known active allergies Medications Santyl 250 UNIT/GM ointmentIndicat ions:Ulcer of heel, right, with fat layer exposed (HCC),Ulcer of heel, left, with fat layer exposed (HCC) APPLY ONCE A DAY TO THE ULCERATION SITES 90 g 2 5 Active ammonium lactate (Amlactin) 12 % creamIndication s:Xerosis cutis APPLY TO AFFECTED AREA TWICE A DAY 560 g 11 5 Active Active Problems No known active problems Family History Medical History Relation Name Comments Diabetes Mother Relation Name Status Comments Father Mother Social History Tobacco Use Types Packs/Day Years Used Date Smoking Tobacco: Every Day Cigarettes Smokeless Tobacco: Never Tobacco Cessation:Ready to Q uit: Not Asked; Counseling Given: Not Answered Sex and Gender Information Value Date Recorded Sex Assigned at Not on file Legal Sex Male 6:54 PM EDT Gender Identity Not on file Sexual Orientation Not on file Last Filed Vital Signs Vital Sign Reading Time Taken Comments Blood Pressure 122/74 02/03/2022 12:00 PM EST Pulse - - Temperature - - Respiratory Rate - - Oxygen Saturation - - Inhaled Oxygen Concentration - - Weight 77.1 kg (170 lb) 03/01/2022 12:00 PM EST Height 175.3 cm (5' 9 ) 03/01/2022 12:00 PM EST Body Mass Index 25.1 03/01/2022 12:00 PM EST Plan of Treatment Not on file Insurance [employer] MEDICARE MEDICAID [facility] Care Teams Senior Counsel Relationship Specialty Start Date End Date Ana Yadav DO PCP - General Family Medicine 05/24/23
--- OUTSIDE RECORDS SUMMARY | 2024-09-21 13:40 | XMS_ITS | Encounter Summary ---
Author Organization [facility] Address [address] [place] [address] Care Team Providers Care Enrichment Assistant Name Role Phone Ana Yadav DO Primary Care Provider [phone] Encounter Details Date Type Department Care Team ([facility] Contact Info) Description 10/25/[address] [facility] [address] [facility] [address] [place] [address] Robbi Quezada MD [address] [facility] [address] [place] [address] Social History Tobacco Use Types Packs/Day Years [...] on filedocumented in this encounter Care Teams Enrichment Assistant Relationship Specialty Start Date End Date Ana Yadav DO PCP - General Family Medicine 05/24/23 documented as of this encounter
[2024-09-21 13:59] LABS: Basophils Percent Auto 0.9 % (0.2-2.0); Eosinophils Absolute Auto 0.2 10^3/uL (0.0-0.7); Eosinophils Percent Auto 4.5 % (0.9-7.0); Hematocrit 39.7 % (42.0-54.0); Hemoglobin 12.9 g/dL (14.0-18.0); Immature Granulocytes Abs Auto 0.01 10^3/uL (0.00-0.03); Immature Granulocytes Pct Auto 0.2 % (0.0-0.5); Lymphocytes Absolute Auto 1.8 10^3/uL (1.2-3.8); Lymphocytes Percent Auto 39.8 % (20.5-60.0); Mean Corpuscular HGB Conc 32.5 g/dL (29.9-35.2); Mean Corpuscular Hemoglobin 28.4 pg (25.9-34.0); Mean Corpuscular Volume 87.4 fL (80.0-94.0); Mean Platelet Volume 10.6 fL (9.5-13.5); Monocytes Absolute Auto 0.7 10^3/uL (0.3-0.8); Monocytes Percent Auto 14.9 % (1.7-12.0); Neutrophils Absolute Auto 1.8 10^3/uL (1.4-6.5); Neutrophils Percent Auto 39.7 % (43.0-75.0); Platelet Count 200 10^3/uL (150-450); Red Blood Count 4.54 10^6/uL (4.70-6.10); White Blood Count 4.4 10^3/uL (4.0-11.0)
[2024-09-21 15:00] LABS: Bilirubin Urine NEGATIVE (NEGATIVE); Blood Urine TRACE-I (NEGATIVE); Clarity Urine CLOUDY (CLEAR); Color Urine LT. YELLOW (YELLOW); Glucose Urine UA NEGATIVE (NEGATIVE); Ketones Urine NEGATIVE (NEGATIVE); Leukocyte Esterase Urine MODERATE (NEGATIVE); Nitrite Urine NEGATIVE (NEGATIVE); Protein Urine NEGATIVE (NEG/TRACE); Specific Gravity Urine 1.015 (1.005-1.025)
[2024-09-21 15:01] LABS: Urine Microscopic Indicated YES
[2024-09-21 15:23] LABS: Bacteria Urine LARGE #/HPF (NONE SEEN); Mucus Urine NONE SEEN (NONE SEEN); RBC Urine 0-2 #/HPF (0-2)
[2024-09-21 15:24] LABS: Amorphous Sediment Urine MODERATE; Cast Seen? NONE SEEN #/LPF (NONE SEEN); Crystals Seen? Seen #/HPF (None Seen); Squamous Epithelial Cell Urine RARE #/LPF (NONE/RARE); Urine Culture Indicated YES-FRMC
== END 2024-09-21 13:36 | disposition home or self-care (01) ==
LOC: LAB 13:35
PROVIDERS: PCP Nurse Practitioner; Visit Provider Nurse Practitioner
DX: R50.9 Fever, unspecified (principal); Z87.440 Personal history of urinary (tract) infections; Z46.6 Encounter for fitting and adjustment of urinary device; L89.154 Pressure ulcer of sacral region, stage 4; I10 Essential (primary) hypertension
CPT/HCPCS: 36415; 81001; 85025; 87086; 87088; 87186

== ENCOUNTER 2024-11-29 11:02 | Outpatient (RCR) | payer MEDICARE, MEDICAID, SELFPAY | END 2024-12-25 23:59 | disposition home or self-care (01) | LOC: INF 11:02 | PROVIDERS: PCP Nurse Practitioner; Visit Provider Nurse Practitioner | DX: N39.0 Urinary tract infection, site not specified (principal); B96.5 Pseudomonas (aeruginosa) (mallei) (pseudomallei) as the cause of diseases classified elsewhere | CPT/HCPCS: 36410 ==

== ENCOUNTER 2024-12-11 12:46 | Outpatient (REF) | payer MEDICARE, MEDICAID, SELFPAY ==
--- OUTSIDE RECORDS SUMMARY | 2024-12-11 13:34 | XMS_ITS | CCD ---
Author Organization [facility] Care Team Providers Care English Composition Instructor Name Role Phone ERIN LUDWIG Admitting Unavailable ERIN LUDWIG Attending Unavailable AMNA MCGARRY Consulting Unavailable YOMAIRA EDUARDO Consulting Unavailable Unavailable Primary Care Provider UnavailAna Rm Unavailable NON STAFF Primary Care Provider UnavailMD Robbi Scott Attending Provider Pamela Hill Unavailable YAZMIN CHILEL Attending Unavailable Ana Foley DO Primary Care Provider [phone] REQUEST, NONE LISTED Primary Care Unavaila ble [...] Unavailable STRICKLAND ., DR THOMAS Attending Unavailable NEW BOST[place], DR JACQUELINE Sparrow Consulting Unavailable REQUEST, DR GUO LISTED Primary Care Unavaila ble YAZMIN CHILEL Admitting Unavailable YAZMIN CHILEL Attending Unavailable YAZMIN CHILEL Consulting Unavailable MISC, DR PUNETES Admitting Unavailable MISC, DR DOCTOR Attending Unavailable MISC, DOCTOR Consulting Unavailable MISC, DOCTOR Admitting Unavailable HILL, PMAELA Primary Care Unavailable MISC, DOCTOR Attending Unavailable MISC, DOCTOR Consulting Unavailable MISC, DOCTOR Admitting Unavailable REQUEST, NONE LISTED Primary Care Unavaila ble MISC, DOCTOR Attending Unavailable MISC, DOCTOR Attending Unavailable MISC, DOCTOR Admitting Unavailable ZIEBER, DR MINERVA Mondragon Consulting Unavailable LOCO ., BELINDA Admitting Unavailable LOCO ., BELINDA Attending Unavailable HILL, PAMELA Primary Care Unavailable DONNA BLAIR Consulting Unavailable ANDERSON, JAVIER Consulting Unavailable LOCO ., BELINDA Consulting Unavailable JUDI Marino Attending Provider [phone] DO Marbella Foleya Omar Primary Care Provider DO Jun Gaona Emergency Provider JUDI Marino Attending Provider DO Marbella Foleya Omar Primary Care Provider [phone] DO Jun Gaona Emergency Provider DO Christin Manzanares Emergency Provider MD Magdaleno Paige Admit Provider MD Magdaleno Paige Attending Provider [phone] MD Ray Betancourt Attending Provider [phone] [facility] Ana RIDDLE Primary Care Provider DO Marbella Foleya A Primary Care Provider [phone] JUDI Marino Attending Provider [phone] DO William Carver Emergency Provider DORIS Alberto Emergency Provider DO Jim Arcos Admit Provider DO Jim Arcos Other Provider MD Zeinab Poole Attending Provider [phone] JUDI Barrett Attending Provider JUDI Boone Emergency Provider [phone] DO Amy Foleyria A Primary Care Provider [phone] JUDI Marino Attending Provider DO Danial Gould Emergency Provider Foley , Ana Veronica Primary Care Provider [phone] FOLEY, ANA VERONICA Primary Care Unavailable DUARTE, [...] ERIKA Admitting Unavailable DUARTE, ERIKA Attending Unavailable BEE BLAIR Referring Unavailable STEPH AGUILAR Admitting Unavailable ABRAHAN ANDERSON Attending Unavailable FOLEY, ANA VERONICA Primary Care Unavailable FOLEY, ANA VERONICA Primary Care Unavailable DUARTE, ERIKA Referring Unavailable FOLEY, ANA VERONICA Primary Care Unavailable DUARTE, ERIKA Referring Unavailable Deja, Lavonne Drew Attending Unavailable Deja, Lavonne Drew Attending Unavailable FoleyDO Ana A Primary Care Provider MD Robbi Quezada Attending Provider [phone] Deja, SCIENTIFIC DIRECTOR-C Lavonne Catherine Primary Care Provider [phone] Vicenta RIDDLE, Ana Primary Care Provider [phone] Lavonne Short Primary Care Physician [phone] Deja, AUTOMATIC DRILL OPERATOR Lavonne Drew Attending Unavailable Deja, AUTOMATIC DRILL OPERATOR Lavonne L Admitting Unavailable Deja, AUTOMATIC DRILL OPERATOR Lavonne L Admitting Unavailable Deja, AUTOMATIC DRILL OPERATOR Lavonne Drew Attending Unavailable Deja, AUTOMATIC DRILL OPERATOR Lavonne Drew Attending Unavailable PAT FANG Attending Unavailable Foley DO, Ana A Primary Care Provider Robbi Quezada MD Attending Provider Deja, Lavonne L Attending Unavailable Deja, Lavonne L Attending Unavailable Deja, Lavonne L Attending Unavailable Deja, Lavonne L Attending Unavailable Deja, Lavonne L Admitting Unavailable Deja, Lavonne L Attending Unavailable Deja SCIENTIFIC DIRECTOR-C, Lavonne Catherine Primary Care Provider Matilde Dillard APRN Attending Provider Deja SCIENTIFIC DIRECTOR-C, Lavonne Catherine Attending Provider Deja, AUTOMATIC DRILL OPERATOR Lavonne L Admitting Unavailable Deja, AUTOMATIC DRILL OPERATOR Lavonne L Attending Unavailable Deja, AUTOMATIC DRILL OPERATOR Lavonne Drew Attending Unavailable Deja, AUTOMATIC DRILL OPERATOR Laovnne Drew Attending Unavailable Deja, AUTOMATIC DRILL OPERATOR Lavonne Drew Attending Unavailable Deja, Lavonne Catherine Admitting Unavailable Deja, Lavonne Catherine Attending Unavailable Robbi Quezada Admitting Unavailable Robbi Quezada Attending Unavailable Ana Foley Primary Care Unavailable DejaLavonne solomon Primary Care Unavailable Matilde Dillard Admitting Unavailable Matilde Dillard Attending Unavailable Robbi Quezada Attending Unavailable Deja, Lavonne Catherine Primary Care Unavailable Robbi Quezada Admitting Unavailable Medications Current Medications Medication Drug Class(es) Dates Sig (Normalized) Sig (Original) albuterol 0.833 mg/ml / ipratropium bromide 0.167 mg/ml inhalant solution (1 source) Anticholinergic, beta2-Adrenergic Agonist Start: 09-25-2019 ipratropium-albut margie (DUONEB) nebulizer solution 1 ampule aluminum hydroxide [...] by mouth every 4 hours as needed. baclofen 10 mg oral tablet (20 sources) gamma-Aminobutyri c Acid-ergic Agonist Start: 10-13-2023 take 1 tablet by mouth three times daily baclofen 10 mg Tab 10 mg = 1 tab(s), Oral, TID, Refills(s) 0 Start Date: 10/13/23 Status: Ordered Start: 07-01-2023 End: 07-01-2023 take 1 tablet by mouth once daily as needed Baclofen 20 mg tablet Discontinued 20 MG PO Daily as needed July 01, 2023 1:32pm July 01, 2023 2:10pm Start: 06-29-2023 End: 07-01-2023 take 1 tablet by mouth twice daily Start: 06-14-2023 End: 06-29-2023 take 1 tablet by mouth three times daily as needed Baclofen 10 mg tablet Discontinued 0 .ROUTE .COMPLEX 270 June 14, [...] Three times a day for 90 days [facility] [place] Start: 02-06-2023 End: 03-22-2023 take 1 tablet by mouth three times daily Baclofen 20 mg Tablet Discontinued 20 MG PO Three times daily 0 February 06, 2023 1:00am March 22, 2023 12:44pm Start: 02-04-2023 End: 02-04-2023 take 1 tablet by mouth three times daily Baclofen 20 mg Tablet Discontinued 20 MG PO Three times daily February 04, 2023 1:00am February 05, 2023 12:18am Start: 03-23-2020 End: 06-14-2023 take 2 tablets by mouth three times daily Baclofen 10 mg tablet Discontinued 20 MG PO Three times daily March 23, 2020 1:00am June 14, 2023 7:41am Start: 03-23-2020 End: 06-14-2023 take 20 mg [...] 20 mg by mouth three times daily. brompheniramine maleate 0.4 mg/ml / dextromethorphan hydrobromide 2 mg/ml / pseudoephedrine hydrochloride 6 mg/ml oral solution (2 sources) alpha-Adrenergic Agonist, Uncompetitive B-jxnqpi-A-aspartate Receptor Antagonist, Sigma-1 Agonist Start: 05-09-19 take 5 mL by mouth three times daily Bromfed DM oral syrup 5 mL, Oral, TID for cold symptoms, 200 mL, Refill(s) 0, [facility]/pharmacy #[id number], 177, cm, 05/09/24 11:44:00 EST, Height/Length Dosing, 70.5, kg, 02/27/24 14:53:00 EST, Weight Dosing Start Date: 05/09/24 Status: Ordered Change Hernandez Catheter every 4 weeks and as needed if issues arise (3 sources) Start: 10-14-19 Change Hernandez Catheter every 4 weeks and as needed if issues arise Change Hernandez Catheter every 4 weeks and as needed if issues arise, See Instructions, 1 EA, 0, Change Hernandez Catheter every 4 weeks and as needed if issues arise, Supply, 177.8, cm, 10/13/23 13:06:00 EDT, Height/Length Dosing, 75.7, kg, 10/13/23 13:06:00 EDT, Weight Dosing Start Date: 10/14/23 Status: Ordered ciprofloxacin 500 mg oral tablet (20 sources) Quinolone Antimicrobial Start: 05-09-19 End: 05-19-19 take 1 tablet by mouth every twelve hours Cipro 500 mg Tab 500 mg = 1 tab(s), Oral, q12hr, X 10 day(s), # 20 tab(s), Refills(s) 0, Pharmacy: [facility]/pharmacy #[id number], 177, cm, 05/09/24 11:44:00 EST, Height/Length Dosing, 70.5, kg, 02/27/24 14:53:00 EST, Weight Dosing Start Date: 05/09/24 Stop Date: 05/19/24 Status: Ordered Start: 10-27-2022 End: 01-25-2023 take 1 tablet by mouth twice daily ciprofloxacin HCl (CIPRO) 500 mg tablet Take 1 tablet by mouth twice daily. 6 tablet 0 10/27/2022 01/25/2023 Active Start: 03-23-2020 End: 09-30-2020 take 1 tablet by mouth twice daily Ciprofloxacin Hcl 500 mg tablet Discontinued 500 MG PO Twice daily March 23, 2020 1:00am September 30, 2020 1:39pm Comment on above: Take 1 tablet by joaquin th twice daily. collagenase 0.25 unt/mg topical ointment (1 source) Collagen-specific Enzyme Start: 05-29-2024 Santyl 250 UNIT/GM ointment Indications: Ulcer of heel, right, with fat layer exposed (CMS/HCC) , Ulcer of heel, left, with fat layer exposed (CMS/HCC) APPLY ONCE A DAY TO THE ULCERATION SITES 90 g 2 05/29/2024 Active Start: 05-29-2024 Santyl 250 UNI T/GM ointment Indications: Ulcer of heel, right, with fat layer exposed (CMS/HCC) , Ulcer of heel, left, with fat layer exposed (CMS/HCC) APPLY ONCE A DAY TO THE ULCERATION SITES 90 g 2 05/29/2024 Active diclofenac potassium 50 mg oral tablet (20 sources) Nonsteroidal Anti-inflammatory Drug Start: 10-13-2023 take 2 tablets by mouth twice daily diclofenac potassium 50 mg oral tablet 100 mg = 2 tab(s), Oral, BID, Refills(s) 0 Start Date: 10/13/23 Status: Ordered Start: 07-01-2023 End: 11-29-2023 Diclofenac Sodium 1 % gel Discontinued 2 GM TOPICAL As Directed July 01, 2023 12:00am November 29, 2023 9:35am Start: 07-01-2023 End: 11-29-2023 Diclofenac Sodium Discontinu ed 2 GM TOPICAL As Directed July 01, 2023 12:00am November 29, 2023 9:35am Start: 06-29-2023 End: 08-14-2024 take 1 tablet by mouth twice daily as needed Diclofenac Potassium 50 mg tablet Discontinued 0 .ROUTE .COMPLEX 60 June 29, 2023 2:16pm August 14, 2024 1:20pm TAKE 1 TABLET BY MOUTH TWICE A DAY NEEDED WITH FOOD OR MILK Start: 06-29-2023 take 1 tablet by joaquin th twice daily as needed Diclofenac Potassium Active 0 .ROUTE .COMPLEX 60 June 29, 2023 2:16pm TAKE 1 TABLET BY MOUTH TWICE A DAY NEEDED WITH FOOD OR MILK Start: 06-29-2023 End: 06-29-2023 take 1 tablet by mouth twice daily Diclofenac Potassium 50 mg tablet Discontinued 50 MG PO Twice daily June 29, 2023 12:00am June 29, 2023 2:16pm Start: 06-11-2022 End: 03-22-2023 take 1 tablet by mouth twice daily Diclofenac Potassium 50 mg tablet Discontinued 50 MG PO Twice daily February [...] three times daily. Take 1 capsule by [facility] three times daily. 0.4 ml enoxaparin sodium 100 mg/ml prefilled [...] 24 hours. Do not resume until 10/18 ertapenem 1000 mg injection (14 sources) [...] mg by mouth o nce daily. gabapentin 600 mg oral tablet (20 sources) Anti-epileptic Agent Start: 4 take 1 tablet by mouth three times daily gabapentin 600 mg Tab 600 mg = 1 tab(s), Oral, TID, # 270 tab(s), Refills(s) 1, Pharmacy: [facility]/pharmacy #[id number], 177.8, cm, 10/13/23 13:06:00 EDT, Height/Length Dosing, 75.7, kg, 10/13/23 13:06:00 EDT, Weight Dosing Start Date: 10/13/23 Status: Ordered Start: 07-01-2023 take 1 capsule by mo uth three times daily Start: 06-14-2023 End: 07-01-2023 take 1 tablet by mouth three times daily Gabapentin 600 mg tablet Discontinued 0 .ROUTE .COMPLEX 270 June 14, 2023 7:41am July 01, 2023 1:32pm TAKE 1 TABLET BY MOUTH THREE TIMES A DAY Start: 02-04-2023 End: 06-14-2023 take 2 capsules by mouth three times daily Gabapentin 300 mg capsule Discontinued 600 MG PO Three times daily February 04, 2023 1:00am June 14, 2023 7:41am Start: 02-04-2023 End: 06-14-2023 take 600 mg [...] day(s) Mar, Not-Taking/PRN Start: 03-23-2020 End: 02-04-2023 Gabapentin 300 mg capsule Discontinued 400 MG PO Three times daily March 23, 2020 1:00am February 04, 2023 11:47am Start: 03-23-2020 End: 02-04-2023 take 400 mg [...] times daily. ibuprofen 600 mg oral tablet (16 sources) Nonsteroidal Anti-inflammatory Drug Start: 10-04-2019 ibuprofen (ADVIL;MOTRIN) tablet 600 mg Start: 09-26-2019 End: 10-04-2019 ibuprofen (ADVIL;MOTRIN) tab let 400 mg Start: 09-14-2017 End: 01-26-2018 Ibuprofen 600 mg tablet Disc ontinued 600 MG PO every 6 to 8 hours as needed for pain September 14, 2017 12:00am January 26, 2018 [...] joaquin th every 6 hours as needed. ammonium lactate 120 mg/ml topical cream (4 sources) Start: 5 ammonium lactate (Amlactin) 12 % cream Indications: Xerosis cutis APPLY TO AFFECTED AREA TWICE A DAY 560 g 11 05/29/2024 Active Start: 05-24-2023 End: 05-29-2024 ammonium lactate (Amlactin) 12 % cream Indications: Xerosis cutis Apply topically 2 (two) times a day 560 g 11 05/24/2023 05/29/2024 Discontinued m-vit,tx,iron,mins/calc/foli c (THERA M PLUS ORAL) (20 [...] mg by mouth d aily at bedtime. 24 hr oxybutynin chloride 10 mg extended release oral tablet (20 sources) Cholinergic Muscarinic Antagonist Start: 04-02-2024 take 1 tablet by mouth once daily oxybutynin 10 mg ER Tab 10 mg = 1 tab(s), Oral, Daily, # 90 tab(s), Refills(s) 0, Pharmacy: [facility]/pharmacy #[id number], 177, cm, 02/27/24 14:53:00 EST, Height/Length Dosing, 70.5, kg, 02/27/24 14:53:00 EST, Weight Dosing Start Date: 04/02/24 Status: Ordered Start: 07-01-2023 End: 08-14-2024 take 1 tablet by mouth twice daily Oxybutynin Chloride 5 mg tablet Discontinued 5 MG PO Twice daily July 01, 2023 12:00am August 14, 2024 1:21pm Start: 09-01-2022 take 1 tablet by joaquin th three times daily oxybutynin (DITROPAN) 5 mg tablet Take 1 tablet by mouth three times daily. 90 tablet 3 09/01/2022 Active Start: 03-23-2020 End: 02-04-2023 take 1 tablet by mouth twice daily Oxybutynin Chloride 5 mg tablet Discontinued 5 MG PO Twice daily March 23, [...] tablet by joaquin th DAILY (6 AM). potassium-sodium phosphates (PHOS-NAK) 280-160-250 mg pwpk (20 sources) Start: potassium-sodium phosphates (PHOS-NAK) 280-160-250 mg pwpk Take [...] on above: Take 2 Packets by mo [facility] twice daily with meals for 7 days. Senna Leaves (6 sources) take 1 tablet by mouth twice daily as needed Senna 8.6 MG 1 tablet as needed Orally BID for 90 days Active take 1 tablet by joaquin once daily at bedtime as needed Senna 8.6 MG 1 tablet at bedtime as needed Orally Once a day for 90 day(s) Active Sennosides (Senna Laxative) 8.6 mg tablet (3 sources) Start: 10-09-2023 take 1 tablet by mouth once daily at bedtime as needed Sennosides (Senna Laxative) 8.6 mg tablet Active 0 .ROUTE .COMPLEX October 09, 2023 8:00pm TAKE 1 TABLET BY MOUTH EVERY DAY AT BEDTIME NEEDED FOR 90 DAYS 3 ml sodium chloride 9 mg/ml injection (3 sources) Start: 09-23-2019 10 mL, Intrave nous, EVERY 12 HOURS SCHEDULED (2 times per [...] Take 100 mg by mouth once daily. zinc oxide 0.4 mg/mg paste (20 sources) Start: 09-26-2022 zinc oxide-cod liver oil (DESITIN 40%) 40 % paste Apply 1 application to affected area twice daily. 0 09/26/2022 Active Comment on above: Apply 1 application to affected area twi ce daily. Completed/Discontinued Medications Medication Drug Class(es) Dates Sig (Normalized) Sig (Original) acetaminophen 500 mg oral capsule (20 sources) Start: 07-01-2023 End: 08-14-2024 take 1 capsule by mouth every six hours as needed for pain Start: 08-13-2022 End: 09-12-2022 take 2 tablets [...] / HYDROcodone bitartrate 5 mg oral tablet (20 sources) Opioid Agonist Start: End: take 1 tablet by mouth twice daily as needed for pain Hydrocodone-Acetamino phen 5-325 mg tablet Discontinued 1 TAB PO Twice daily as needed for pain 14 February 21, 2024 February 21, 2024 12:45pm Start: 02-21-2024 End: 08-14-2024 take 1 tablet by mouth every six hours as needed for pain Hydrocodone-Acetaminophen 5-325 mg table t Discontinued 1 TAB PO Q6H as needed for pain 28 May 08, 2024 August 14, 2024 1:20pm Start: 02-21-2024 End: 02-21-2024 take 1 tablet by mouth twice daily as needed for pain Hydrocodone-Acetaminophen 5-325 mg table t Discontinued 1 TAB PO Twice daily as needed for pain 14 February 21, 2024 February 21, 2024 12:45pm Start: 07-01-2023 End: 02-21-2024 take 1 tablet by mouth twice daily as needed for pain, then take 8-10 tablets by mouth twice daily as needed for pain Hydrocodone-Acetaminophen 5-325 mg table t Discontinued 1 TAB PO Twice daily as needed for pain July 01, 2023 12:00am February 21, 2024 12:44pm 1 tablet as needed for severe pain scale 8-10 Orally BID Start: 02-25-2023 HYDROcodone-Ac etaminophen 5-325 MG 1 tablet as needed for severe pain scale 8-10 Orally BID for 7 days Feb, Not-Taking/PRN amantadine hydrochloride 100 mg oral capsule (12 sources) Influenza A M2 Protein Inhibitor take 1 capsule by mouth twice daily amantadine HCl (SYMMETREL) 100 mg capsule Take 100 mg by mouth twice daily. 0 Active Comment on above: Take 100 mg by mouth twice daily. amLODIPine 5 mg oral tablet (9 sources) Dihydropyridine Calcium Channel Roni Start: 03-22-20 End: 08-15-19 take 1 tablet by mouth once daily Amlodipine 5 mg Tablet Discontinued 5 MG PO Daily March 22, 2023 1:00am August 14, 2024 1:19pm amoxicillin 500 mg / clavulanate 125 mg oral tablet (13 sources) Penicillin-class Antibacterial Start: 01-10-20 End: 04-10-19 take 1 tablet by mouth every twelve hours Amoxicillin-Pot Clavulanate 500-125 mg tablet Discontinued 1 TAB PO Every 12 hours January 10, 2024 12:00am April 10, 2024 12:32pm Start: 12-09-2022 take 1 tablet by joaquin th every twelve hours Amoxicillin-Pot Clavulanate 875-125 MG 1 tablet Orally every 12 hrs for 10 days Nov, Not-Taking Start: 09-25-2019 End: 10-02-2019 amoxicillin-clavulanate (AUG MENTIN) 875-125 MG per tablet 1 tablet Artificial Tears 0.1-0.3 % (20 sources) Artificial Tears 0.1-0.3 % as directed Ophthalmic PRN Not-Taking ascorbic acid 500 mg chewable tablet (20 sources) Vitamin C Start: 07-01-2023 End: 08-14-2024 take 1 tablet by mouth twice daily Ascorbic Acid (Vitamin C) 500 mg tablet,chewable Discontinued 1 TAB PO Twice daily July 01, 2023 12:00am August 14, 2024 1:20pm FreeTextSi tablet Orally bid; Note: Source Status: [...] bid Active atorvastatin 10 mg oral tablet (14 sources) HMG-CoA Reductase Inhibitor Start: 07-15-2021 End: 02-04-2023 take 1 tablet by mouth once daily Atorvastatin 10 mg Tablet Discontinued 10 MG PO Daily July 15, 2021 12:00am February 04, 2023 11:47am bisacodyl 10 mg rectal suppository (20 sources) Stimulant Laxative Start: 01-25-2023 End: 07-22-2023 Bisacodyl (Dulcolax (Bisacodyl)) 10 mg suppository Discontinued 10 MG OH Daily as needed for constipation July 15, 2023 12:00am July 22, 2023 9:24pm Start: 09-24-2019 End: 07-27-2022 bisacodyl (DULCOLAX) [address] 1 suppository rectally daily 30 suppository 0 10/05/2019 11/04/2019 Active Comment on above: [address]CTAL rout e once daily. [address] e once daily as needed. Bisacodyl (Dulcolax (Bisacodyl)) 10 mg suppository (4 sources) Start: 07-15-2023 End: 07-22-2023 Bisacodyl (Dulcolax (Bisacodyl)) 10 mg suppository Discontinued 10 MG OH Daily as needed for constipation July 15, 2023 12:00am July 22, 2023 9:24pm Start: 07-15-2023 End: 07-22-2023 Bisacodyl (Dulcolax (Bisacod yl)) 10 mg suppository Discontinued 10 MG OH Daily July 15, 2023 12:00am July 22, 2023 9:24pm Calcium (14 sources) Phosphate Binder, Calcium Start: 03-23-2020 End: 02-04-2023 take 1 tablet by mouth once daily Calcium 500 mg Tablet Discontinued 500 MG PO Daily March 23, [...] MG PO Daily March 23, 2020 12:00am calcium carbonate 1250 mg oral tablet (20 sources) Start: 07-01-2023 End: 08-14-2024 take 1 tablet by mouth twice daily Calcium Carbonate 500 mg calcium (1,250 mg) tablet Discontinued 500 MG PO Twice daily July 01, 2023 12:00am August 14, 2024 1:20pm take 1 tablet by joaquin th every twelve hours Calcium 500 MG 1 tablet with meals Orall y Twice a day Not-Taking/PRN take 1 tablet by joaquin th every twelve hours Calcium 500 MG 1 tablet with meals Orall y Twice a day Active celecoxib 200 mg oral capsule (13 sources) Nonsteroidal Anti-inflammatory Drug take 1 capsule by mouth twice daily celecoxib (CELEBREX) 200 mg capsule Take 200 mg by mouth twice daily. 0 Suspended Comment on above: Take 200 mg by mouth twice daily. cephalexin 500 mg oral capsule (20 sources) Cephalosporin Antibacterial Start: 07-22-19 End: 07-28-19 take 1 capsule by mouth twice daily Cephalexin 500 mg capsule Discontinued 500 MG PO Twice daily 14 01July 22, 2023 12:00am July 28, 2023 10:51am Start: 12-07-2022 End: 01-31-2023 take 1 capsule by mouth every six hours Cephalexin 500 mg capsule Discontinued 500 MG PO Q6H 28 December 07, 2022 12:00am January 31, 2023 9:10am Start: 09-14-2017 End: 09-19-2017 take 1 capsule by mouth three times daily Cephalexin (Keflex) 500 mg capsule Discontinued 500 MG PO Three times daily 15 5 September 14, 2017 12:00am September 18, 2017 12:00am September 19, 2017 12:02am space evenly during waking hours cholecalciferol 0.125 mg oral tablet (14 sources) Vitamin D Start: 03-23-2020 End: 02-04-2023 take 1 tablet by mouth once daily Cholecalciferol (Vitamin D3) (Vitamin D3) 125 mcg (5,000 unit) Tablet Discontinued 125 MCG PO Daily March 23, 2020 1:00am February 04, 2023 11:47am Commode Bedside - (20 sources) Start: 02-28-2020 Commode Bedsid e - as directed Feb, Not-Taking/PRN Start: 02-28-2020 Commode Bedsid e - as directed Feb, Not-Taking Start: 02-28-2020 dexamethasone 0.5 mg oral tablet (20 sources) Corticosteroid Start: 07-01-2023 End: 08-14-2024 take 1 tablet by mouth once daily Dexamethasone 0.5 mg tablet Discontinued 0.5 MG PO Daily July 01, 2023 12:00am August 14, 2024 1:20pm Start: 03-23-2020 End: 02-04-2023 take 1 tablet by mouth once daily Dexamethasone 0.5 mg tablet Discontinued 0.5 MG PO Daily March 23, 2020 1:00am February 04, 2023 11:47am 100 ml dexmedetomidine 0.004 mg/ml injection (1 source) Central alpha-2 Adrenergic Agonist Start: 09-23-2019 End: 09-24-2019 dexmedetomidine (PRECEDEX) 400 mcg in sodium chloride 0.9 % 100 mL infusion dextran 70 1 mg/ml / hypromellose 3 mg/ml ophthalmic solution (8 sources) Plasma Volume Digital Librarian Artificial Tears 0.1-0.3 % as directed Ophthalmic PRN Not-Taking/PRN doxycycline hyclate 100 mg oral capsule (20 sources) Tetracycline-cla ss Drug Start: 07-24-2023 End: 10-05-2023 take 1 capsule by mouth twice daily Doxycycline Hyclate 100 mg capsule Discontinued 100 MG PO Twice daily 14 01July 24, 2023 12:00am October 05, 2023 9:58am Start: 04-22-2023 take 1 capsule by [facility] every twelve hours Doxycycline Hyclate 100 MG 1 capsule Orally Twice a day [facility] [place], Not-Taking/PRN Start: 04-22-2023 End: 07-28-2023 take 1 tablet by mouth twice daily Doxycycline Hyclate 100 mg tablet Discontinued 100 MG PO Twice daily 14 01April 22, 2023 1:00am July 28, 2023 10:51am Start: 02-06-2023 End: 03-22-2023 take 1 capsule by mouth twice daily Doxycycline Hyclate 100 mg capsule Discontinued 100 MG PO Twice daily 08 10February 06, 2023 1:00am March 22, 2023 12:44pm dronabinol 2.5 mg oral capsule (20 sources) Cannabinoid Start: 07-01-2023 End: 08-14-2024 take 1 capsule by mouth three times daily Dronabinol 2.5 mg capsule Discontinued 2.5 MG PO Three times daily July 01, 2023 12:00am August 14, 2024 1:20pm Start: 03-23-2020 End: 02-04-2023 take 1 capsule by mouth three times daily Dronabinol (Marinol) 2.5 mg Capsule Discontinued 2.5 MG PO Three times daily March 23, 2020 1:00am February 04, 2023 11:47am DULoxetine 30 mg delayed release oral capsule (20 sources) Serotonin and Norepinephrine Reuptake Inhibitor Start: 07-01-2023 End: 08-14-2024 take 1 capsule by mouth once daily Duloxetine 30 mg capsule,delayed release(DR/EC) Discontinued 30 MG PO Daily July 01, 2023 12:00am August 14, 2024 1:20pm Start: 03-23-2020 End: 02-04-2023 take 1 capsule by mouth once daily Duloxetine 30 mg capsule,delayed release(DR/EC) Discontinued 30 MG PO Daily March 23, 2020 1:00am February 04, 2023 11:47am famotidine 20 mg oral tablet (15 sources) [...] mg oral tablet (20 sources) Start: 07-01-2023 End: 08-14-2024 take 1 tablet by mouth twice daily Ferrous Sulfate 325 mg (65 mg iron) tablet Discontinued 325 MG PO Twice daily July 01, 2023 12:00am August 14, 2024 1:20pm Start: 03-23-2020 End: 02-04-2023 take 1 tablet by mouth twice daily Ferrous Sulfate 325 mg (65 mg iron) tablet Discontinued 325 MG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 [Moles/Vol] 23.5 mmol/L 21.0-31.0 [facility] Chloride [Moles/volume] in S jennifer or PlasmaOrdered By: Robbi Quezada on 11-29-2023 Chloride [Moles/Vol] 106 mmol/L 98-107 [facility] Creatinine [Mass/volume] in Serum or PlasmaOrdered By: Robbi Quezada on 11-29-2023 Creatinine [Mass/Vol] 0.80 mg/dL 0.70-1.30 [facility] Eosinophils Auto (Bld) [#/Vo l]Ordered By: Robbi Quezada on 11-29-2023 Eosinophils (Bld) [#/Vol] N/A [facility] Eosinophils/100 WBC Auto (Bl d)Ordered By: Robbi Quezada on 11-29-2023 Eosinophils/100 WBC (Bld) N/A [facility] Eosinophils/100 WBC Manual c nt (Bld)Ordered By: Robbi Quezada on 11-29-2023 Eosinophils/100 WBC (Bld) 4 % High 1-3 [facility] Erythrocyte distribution wid th Auto (RBC) [Ratio]Ordered By: Robbi Quezada on 11-29-2023 Erythrocyte distribution width (RBC) [Ratio] 14.3 % 12.0-14.8 [facility] Giant platelets/100 leukocyt es [Ratio] in Blood by Manual countOrdered By: Robbi Quezada on 11-29-2023 Giant platelets/100 WBC Manual cnt (Bld) [Ratio] 1 /100{WBC} [facility] Glucose [Mass/volume] in Ser um or PlasmaOrdered By: Robbi Quezada on 11-29-2023 Glucose [Mass/Vol] 103 mg/dL High 70-[address] [facility] Comment on above: ADA recommended refe rence rangeRandom Glucose Reference Range is dependent on time and content of last meal. Glucose of more than 200 mg/dL in a nonstressed, ambulatory subject supports the diagnosis of Diabetes Mellitus. Random Glucose Refer ence Range is dependent on time and content of last meal. Glucose of more than 200 mg/dL in a nonstressed, ambulatory subject supports the diagnosis of Diabetes Mellitus. ADA recommended reference range Hematocrit Auto (Bld) [Volum e fraction]Ordered By: Robbi Quezada on 11-29-2023 Hematocrit (Bld) [Volume fraction] 41.7 % 38.8-50.0 [facility] Hemoglobin [Mass/volume] in BloodOrdered By: Robbi Quezada on 11-29-2023 Hemoglobin (Bld) [Mass/Vol] 13.9 g/dL 13.0-17.0 [facility] Leukocytes [#/volume] correc mayte for nucleated erythrocytes in Blood by Automated counOrdered By: Robbi Quezada on 11-29-2023 WBC corrected for nucl RBC Auto (Bld) [#/Vol] 5.9 10*3/uL 4.1-10.5 [facility] Lymphocytes Auto (Bld) [#/Vo l]Ordered By: Robbi Quezada on 11-29-2023 Lymphocytes (Bld) [#/Vol] N/A [facility] Lymphocytes/100 WBC Auto (Bl d)Ordered By: Robbi Quezada on 11-29-2023 Lymphocytes/100 WBC (Bld) N/A [facility] Lymphocytes/100 WBC Manual c nt (Bld)Ordered By: Robbi Quezada on 11-29-2023 Lymphocytes/100 WBC (Bld) 33 % 18-42 [facility] MCH Auto (RBC) [Entitic mass ]Ordered By: Robbi Quezada on 11-29-2023 MCH (RBC) [Entitic mass] 28.4 pg 27.5-35.2 [facility] MCHC Auto (RBC) [Mass/Vol]Or dered By: Robbi Quezada on 11-29-2023 MCHC (RBC) [Mass/Vol] 33.3 g/dL 32.5-35.6 [facility] MCV Auto (RBC) [Entitic vol] Ordered By: Robbi Quezada on 11-29-2023 MCV (RBC) [Entitic vol] 85.1 fL 83.5-101 [facility] Monocytes Auto (Bld) [#/Vol] Ordered By: Robbi Quezada on 11-29-2023 Monocytes (Bld) [#/Vol] N/A [facility] Monocytes/100 WBC Auto (Bld) Ordered By: Robbi Quezada on 11-29-2023 Monocytes/100 WBC (Bld) N/A [facility] Monocytes/100 WBC Manual cnt (Bld)Ordered By: Robbi Quezada on 11-29-2023 Monocytes/100 WBC (Bld) 9 % 2-11 [facility] Neutrophils Auto (Bld) [#/Vo l]Ordered By: Robbi Quezada on 11-29-2023 Neutrophils (Bld) [#/Vol] N/A [facility] Neutrophils/100 WBC Auto (Bl d)Ordered By: Robbi Quezada on 11-29-2023 Neutrophils/100 WBC (Bld) N/A [facility] No Panel InformationOrdered By: Robbi Quezada on 11-29-2023 Estimated GFR (CKD-EPI) > 60.0 mL/Min [facility] Creatinine Clearance (Chem N/A [facility] Nucleated erythrocytes [Pres ence] in Blood by Automated countOrdered By: Robbi Quezada on 11-29-2023 Nucleated RBC Auto Ql (Bld) N/A [facility] Platelet adequacy [Presence] in Blood by Light microscopyOrdered By: Robbi Quezada on 11-29-2023 Platelets LM Ql (Bld) Normal Normal [facility] Platelet mean volume Auto (B ld) [Entitic vol]Ordered By: Robbi Quezada on 11-29-2023 Platelet mean volume (Bld) [Entitic vol] 8.0 fL 6.6-10.1 [facility] Platelet morphology finding [Identifier] in BloodOrdered By: Robbi Quezada on 11-29-2023 Platelet morphology finding Nom (Bld) Normal Normal [facility] Platelets Auto (Bld) [#/Vol] Ordered By: Robbi Quezada on 11-29-2023 Platelets (Bld) [#/Vol] 319 10*3/uL 150-450 [facility] Potassium [Moles/volume] in Serum or PlasmaOrdered By: Robbi Quezada on 11-29-2023 Potassium [Moles/Vol] 4.2 mmol/L 3.5-5.1 [facility] RBC Auto (Bld) [#/Vol]Ordere d By: Robbi Quezada on 11-29-2023 RBC (Bld) [#/Vol] 4.90 10*6/uL 3.90-5.60 [facility] RBC morphologyOrdered By: Jurgen Quezada on 11-29-2023 RBC morphology finding Nom (Bld) Normal Normal [facility] Segmented neutrophils/100 WB C Manual cnt (Bld)Ordered By: Robbi Quezada on 11-29-2023 Segmented neutrophils/100 WBC (Bld) 53 % 50-70 [facility] Serum or plasma anion gap de terminationOrdered By: Robbi Quezada on 11-29-2023 Anion gap [Moles/Vol] 15.7 mmol/L High 6.0-15.0 [facility] Sodium [Moles/volume] in Ser um or PlasmaOrdered By: Robbi Quezada on 11-29-2023 Sodium [Moles/Vol] 141 mmol/L 136-[address] [facility] Urea nitrogen [Mass/volume] in Serum or PlasmaOrdered By: Robbi Quezada on 11-29-2023 Urea nitrogen [Mass/Vol] 14 mg/dL 7-25 [facility] Variant lymphocytes/100 WBC Manual cnt (Bld)Ordered By: Robbi Quezada on 11-29-2023 Variant lymphocytes/100 WBC (Bld) 1 % 0-12 [facility] WBC Auto (Bld) [#/Vol]Ordere d By: Robbi Quezada on 11-29-2023 WBC (Bld) [#/Vol] 5.9 10*3/uL 4.1-10.[address] [facility] Family Medicine Office/Clini c Noteon 11-18-2023 Family [...] Illness pt presents today to discuss needing HH nurse more than once a week and [...] Yes, 11/18/2023 Family History Diabetes mellitus: Mother. [facility] Comment on above: Result Comment: Elec tronically Signed By: Lavonne Casas\.br\Date and Time Signed: 11/18/23 12:34 EDT Pre-Visit Planningon 024 Pre-Visit Planning Pre-Visit Planning - From: Ju Albert To: Lavonne Casas; Sent: 11/15/2023 08:18:54 EDT Subject: Pre-Visit Planning Due Date/Time: 11/15/2023 08:18:00 EDT Caller Name: FEDE GUERRA SR; Caller Number: Nathaniel , Dusty Good morning Lavonne. During a pre-visit planning [...] feel free to contact me at extension [phone]. Thank you! Ju Albert LPN Clinical Side Panel [place] [address] Extension: [phone] [email or web address] - From: Lavonne Casas To: Ju Albert; Sent: 11/15/2023 08:32:38 EDT Subject: RE: Pre-Visit Planning Caller Name: FEDE GUERRA SR; Caller Number: Nathaniel , M major depressive disorder recurrent moderate Normal [facility] Anaerobic cultureOrdered By: Annabella Marino on 11-09-2023 Bacteria identified Anaer cx Nom (Unsp spec) Anaerobic culture [facility] Bacteria identified Aer cx N om (Unsp spec)Ordered By: Annabella Marino on 11-09-2023 Aerobic Culture Abnormal [facility] Aerobic Culture Abnormal [facility] Group B Strep (Streptococcus agalactiae) Group B Strep (Streptococcus agalactiae) Abnormal [facility] Gram stain for investigation of transfusion reactionOrdered By: Annabella Marino on 11-09-2023 Microscopic observation Gram stain Nom (Unsp spec) Pseudomonas aeruginosa Abnormal [facility] Gram stain microscopyOrdered By: Annabella Marino on 11-09-2023 Microscopic observation Gram stain Nom (Unsp spec) Gram stain microscopy [facility] Ambulatory Visit Summaryon 0 10-13-2023 Ambulatory Visit Summary Ambulatory Visit Summary FEDE GUERRA :1965 Visit Date:10/13/2023 Ambulatory Visit Instructions Your Diagnosis History of spinal cord injury BMI 23.0-23.9, adult Smokeless tobacco use Your Care Team Attending Physician - Lavonne Casas Procedures Performed Ablation, Surgery. Discharge Vitals Temperature (Oral) 36.8 ?C Heart Rate (Peripheral) 80 Respiratory Rate 16 Blood Pressure 110/76 Height 177.8 cm Height 70 in Weight 75.74 kg Weight 166.628 lb BMI 23.96 What to do next Scheduled Follow-Up Appointments 2023 1:00 PM EDT With: Lavonne Casas Where: [facility] [place] Normal [facility] Family Medicine Office/Clini c Noteon 10-13-2023 Family Medicine [...] been a while [place] [facility] [place] [facility] month ago Health Maintenance UTD: Colonoscopy: years [...] abdominal/kub x ray to be done at [facility]. pt also has an order for x ray of coccyx because he has an open would that is not healing. wound care physician ordered that about 1 month ago. pt forgot to bring in his meds. they will call us with med list and what needs refilled when they get home. RTC [address] [facility] [place] 2. Recurrent kidney stones (N20.0: Calculus of kidney) pt had large stones removed surgically about 1 year ago Ordered: [facility] [place] 3. Indwelling Hernandez catheter present (Z97.8: Presence of other specified devices) pt has indwelling hernandez catheter in place. urine in bag is clear and yellow. not dark and no blood noted. pt was having his catheter changed every month. he needs a referral to [facility] to continue having it changed monthly. He is requesting that [facility] continue coming to his house. Mayuri the nurse was contacted to find out what all they needed for referral. If he doesn't get it changed frequently he gets very sick with UTI and ends up in the hospital. will send referral NIKITA Ordered: [facility] [place] 4. BMI 23.0-23.9, adult (Z68.23: Body mass index [BMI] 23.0-23.9, adult) BMI education given Ordered: [facility] [place] 5. Smokeless tobacco use (Z72.0: Tobacco use) consider not using tobacco Ordered: [facility] [place] Orders: gabapentin, 600 mg = 1 tab(s), Oral, TID, # 270 tab(s), Refills(s) 0 gabapentin, 600 mg = 1 tab(s), Oral, TID, # 270 tab(s), Refills(s) 1, Pharmacy: [id number]/pharmacy #[id number], 177.8, cm, 10/13/23 13:06:00 EDT, [...] Family History Family history is negative Normal [facility] Comment on above: Result Comment: Elec tronically Signed By: Lavonne Casas\.br\Date and Time Signed: 10/13/23 14:03 EDT Basic Metabolic Profon 09-18 Anion gap [Moles/Vol] 10 mmol/L Normal 9-17 [facility] Comment on above: Performed By: #### B MP #### [facility] [address] [place] [address] Liquor Clerk: Jacqueline Oropeza MD BUN/CRE Ratio 10 Normal 9-20 [facility] Comment on above: Performed By: #### B MP #### [facility] [address] [place], [place] [id number] Liquor Clerk: Jacqueline Oropeza MD Calcium [Mass/Vol] 8.5 mg/dL Low 8.6-10.4 [facility] Comment on above: Performed By: #### B MP #### [facility] [address] [place], [place] [id number] Liquor Clerk: Jacqueline Oropeza MD Chloride [Moles/Vol] 105 mmol/L Normal 98-107 [facility] Comment on above: Performed By: #### B MP #### [facility] [address] [place], [place] [id number] Liquor Clerk: Jacqueline Oropeza MD CO2 [Moles/Vol] 25 mmol/L Normal 20-31 [facility] Comment on above: Performed By: #### B MP #### [facility] [address] [place], [place] [id number] Liquor Clerk: Jacqueline Oropeza MD Creatinine [Mass/Vol] 0.7 mg/dL Normal 0.7-1.2 [facility] Comment on above: Performed By: #### B MP #### [facility] [address] [place], [place] [id number] Liquor Clerk: Jacqueline Oropeza MD GFR/1.73 sq M.predicted among non-blacks MDRD (S/P/Bld) [Vol rate/Area] mL/min/{1.73_m2} Normal >60 [facility] Comment on above: Result Comment: These results [...] secretion. Performed By: #### B MP #### [facility] [address] [place], [place] [id number] Liquor Clerk: Jacqueline Oropeza MD Glucose [Mass/Vol] 125 mg/dL High 70-99 [facility] Comment on above: Performed By: #### B MP #### [facility] [address] [place], [place] [phone] Liquor Clerk: Jacqueline Oropeza MD Potassium [Moles/Vol] 3.3 mmol/L Low 3.7-5.3 [facility] Comment on above: Performed By: #### B MP #### [facility] [address] [place] [id number] Liquor Clerk: Jacqueline Oropeza MD Sodium [Moles/Vol] 140 mmol/L Normal 135-144 [facility] Comment on above: Performed By: #### B MP #### [facility] [address] [place], [place] [id number] Liquor Clerk: Jacqueline Oropeza MD Urea nitrogen [Mass/Vol] 7 mg/dL Low 8-23 [facility] Comment on above: Performed By: #### B MP #### [facility] [address] [place], [place] [id number] Liquor Clerk: Jacqueline Oropeza MD CNPNon 08-05-2023 CNPN Normal [facility] Alanine aminotransferase [En zymatic activity/volume] in Serum or PlasmaOrdered By: Danial Gould on 07-22-2023 ALT [Catalytic activity/Vol] 9 U/L 7-52 [facility] Albumin [Mass/volume] in Ser um or Plasma by Bromocresol green (BCG) dye binding methoOrdered By: Danial Gould on 07-22-2023 Albumin BCG dye [Mass/Vol] 3.9 g/dL 3.5-5.7 [facility] Alkaline phosphatase [Enzyma tic activity/volume] in Serum or PlasmaOrdered By: Danial Gould on 07-22-2023 ALP [Catalytic activity/Vol] 65 U/L 34-104 [facility] Amorphous urine sedimentOrde red By: Danial Gould on 07-22-2023 Amorphous sediment LM Ql (Urine sed) Rare [LPF] [facility] Aspartate aminotransferase [ Enzymatic activity/volume] in Serum or PlasmaOrdered By: Danial Gould on 07-22-2023 AST [Catalytic activity/Vol] 15 U/L 13-39 [facility] Automated erythrocytes count in urine sediment (number/area)Ordered By: Danial Gould on 07-22-2023 RBC Auto (Urine sed) [#/Area] Innumerable [HPF] 0-4 [facility] Automated leukocytes count i n urine sediment (number/area)Ordered By: Danial Gould on 07-22-2023 WBC Auto (Urine sed) [#/Area] Innumerable [HPF] 0-4 [facility] Basophils Auto (Bld) [#/Vol] Ordered By: Danial Gould on 07-22-2023 Basophils (Bld) [#/Vol] 0.0 10*3/uL 0.0-0.2 [facility] Basophils/100 WBC Auto (Bld) Ordered By: Danial Gould on 07-22-2023 Basophils/100 WBC (Bld) 1.0 % . [facility] Bilirubin Test strip Ql (U)O rdered By: Danial Gould on 07-22-2023 Bilirubin Ql (U) Negative Negative [facility] Bilirubin.total [Mass/volume ] in Serum or PlasmaOrdered By: Danial Gould on 07-22-2023 Bilirubin [Mass/Vol] 0.3 mg/dL 0.3-1.0 [facility] Calcium [Mass/volume] in Ser um or PlasmaOrdered By: Danial Gould on 07-22-2023 Calcium [Mass/Vol] 9.3 mg/dL 8.6-10.[address] [facility] Carbon dioxide, total [Moles /volume] in Serum or PlasmaOrdered By: Danial Gould on 07-22-2023 CO2 [Moles/Vol] 24.7 mmol/L 21.0-31.0 [facility] Chloride [Moles/volume] in S jennifer or PlasmaOrdered By: Danial Gould on 07-22-2023 Chloride [Moles/Vol] 108 mmol/L 98-107 [facility] Color Auto (U)Ordered By: Jean Gould on 07-22-2023 Color (U) Drumright Yellow [facility] Creatinine [Mass/volume] in Serum or PlasmaOrdered By: Danial Gould on 07-22-2023 Creatinine [Mass/Vol] 0.86 mg/dL 0.70-1.30 [facility] Eosinophils Auto (Bld) [#/Vo l]Ordered By: Danial Gould on 07-22-2023 Eosinophils (Bld) [#/Vol] 0.3 10*3/uL 0.0-0.45 [facility] Eosinophils/100 WBC Auto (Bl d)Ordered By: Danial Gould on 07-22-2023 Eosinophils/100 WBC (Bld) 6.4 % . [facility] Erythrocyte distribution wid th Auto (RBC) [Ratio]Ordered By: Danial Gould on 07-22-2023 Erythrocyte distribution width (RBC) [Ratio] 14.7 % 12.0-14.8 [facility] Globulin Calc (S) [Mass/Vol] Ordered By: Danial Gould 07-22-2023 Globulin (S) [Mass/Vol] 3.1 g/dL [facility] Glucose [Mass/volume] in Ser um or PlasmaOrdered By: Danial Gould on 07-22-2023 Glucose [Mass/Vol] 125 mg/dL 70-[address] [facility] Comment on above: ADA recommended refe rence rangeRandom Glucose Reference Range is dependent on time and content of last meal. Glucose of more than 200 mg/dL in a nonstressed, ambulatory subject supports the diagnosis of Diabetes Mellitus. Hematocrit Auto (Bld) [Volum e fraction]Ordered By: Danial Gould on 07-22-2023 Hematocrit (Bld) [Volume fraction] 38.9 % 38.8-50.0 [facility] Hemoglobin [Mass/volume] in BloodOrdered By: Danial Gould on 07-22-2023 Hemoglobin (Bld) [Mass/Vol] 12.9 g/dL 13.0-17.0 [facility] Ketones Auto test strip (U) [Mass/Vol]Ordered By: Danial Gould on 07-22-2023 Ketones (U) [Mass/Vol] Negative Negative [facility] - UrinalysisOrder ed By: Danial Gould on 07-22-2023 Hyaline casts LM Ql (Urine sed) 0-1 [LPF] 0-8 [facility] Leukocytes [#/volume] correc mayte for nucleated erythrocytes in Blood by Automated counOrdered By: Danial Gould on 07-22-2023 WBC corrected for nucl RBC Auto (Bld) [#/Vol] 4.1 10*3/uL 4.1-10.5 [facility] Lipase [Enzymatic activity/v olume] in Serum or PlasmaOrdered By: Danial Gould on 07-22-2023 Lipase [Catalytic activity/Vol] 24.0 U/L 11.0-82.0 [facility] Lymphocytes Auto (Bld) [#/Vo l]Ordered By: Danial Gould on 07-22-2023 Lymphocytes (Bld) [#/Vol] 1.5 10*3/uL 1.00-4.8 [facility] Lymphocytes/100 WBC Auto (Bl d)Ordered By: Danial Gould on 07-22-2023 Lymphocytes/100 WBC (Bld) 37.7 % . [facility] MCH Auto (RBC) [Entitic mass ]Ordered By: Danial Gould on 07-22-2023 MCH (RBC) [Entitic mass] 28.4 pg 27.5-35.2 [facility] MCHC Auto (RBC) [Mass/Vol]Or dered By: Danial Gould on 07-22-2023 MCHC (RBC) [Mass/Vol] 33.2 g/dL 32.5-35.6 [facility] MCV Auto (RBC) [Entitic vol] Ordered By: Danial Gould on 07-22-2023 MCV (RBC) [Entitic vol] 85.4 fL 83.5-101 [facility] Monocyte distribution width [Entitic volume] in Blood by AutomatedOrdered By: Danial Gould on 07-22-2023 Monocyte distribution width Auto (Bld) [Entitic vol] 19.05 % 0.00-20.00 [facility] Monocytes Auto (Bld) [#/Vol] Ordered By: Danial Gould on 07-22-2023 Monocytes (Bld) [#/Vol] 0.5 10*3/uL 0.0-0.8 [facility] Monocytes/100 WBC Auto (Bld) Ordered By: Danial Gould on 07-22-2023 Monocytes/100 WBC (Bld) 12.1 % . [facility] Neutrophils Auto (Bld) [#/Vo l]Ordered By: Danial Gould on 07-22-2023 Neutrophils (Bld) [#/Vol] 1.8 10*3/uL 1.8-7.7 [facility] Neutrophils/100 WBC Auto (Bl d)Ordered By: Danial Gould on 07-22-2023 Neutrophils/100 WBC (Bld) 42.8 % . [facility] Nitrite Test strip Ql (U)Ord ered By: Danial Gould on 07-22-2023 Nitrite Ql (U) Positive Negative [facility] No Panel InformationOrdered By: Danial Gould on 07-22-2023 Estimated GFR (CKD-EPI) > 60.0 mL/Min [facility] Creatinine Clearance (Chem 84.39 [facility] Nucleated erythrocytes [Pres ence] in Blood by Automated countOrdered By: Danial Gould on 07-22-2023 Nucleated RBC Auto Ql (Bld) 0.1 /100{WBC} 0-0.5 [facility] Platelet mean volume Auto (B ld) [Entitic vol]Ordered By: Danial Gould on 07-22-2023 Platelet mean volume (Bld) [Entitic vol] 8.0 fL 6.6-10.1 [facility] Platelets Auto (Bld) [#/Vol] Ordered By: Danial Gould on 07-22-2023 Platelets (Bld) [#/Vol] 214 10*3/uL 150-450 [facility] Potassium [Moles/volume] in Serum or PlasmaOrdered By: Danial Gould on 07-22-2023 Potassium [Moles/Vol] 4.3 mmol/L 3.5-5.1 [facility] Protein Auto test strip (U) [Mass/Vol]Ordered By: Danial Gould on 07-22-2023 Protein (U) [Mass/Vol] 100 mg/dL Negative [facility] Protein [Mass/volume] in Ser um or PlasmaOrdered By: Danial Gould on 07-22-2023 Protein [Mass/Vol] 7.0 g/dL 6.4-8.[address] [facility] RBC Auto (Bld) [#/Vol]Ordere d By: Danial Gould on 07-22-2023 RBC (Bld) [#/Vol] 4.55 10*6/uL 3.90-5.60 [facility] Serum or plasma albumin/glob ulin mass ratioOrdered By: Danial Gould on 07-22-2023 Albumin/Globulin [Mass ratio] 1.3 {ratio} [facility] Serum or plasma anion gap de terminationOrdered By: Danial Gould 07-22-2023 Anion gap [Moles/Vol] 10.6 mmol/L 6.0-15.0 [facility] Sodium [Moles/volume] in Ser um or PlasmaOrdered By: Danial Gould on 07-22-2023 Sodium [Moles/Vol] 139 mmol/L 136-[address] [facility] Specific gravity Auto test s trip (U) [Rel density]Ordered By: Danial Gould 07-22-2023 Specific gravity (U) [Rel density] 1.023 1.001-1.030 [facility] Squamous epithelial cells de tection in urine sediment by light microscopyOrdered By: Danial Gould 07-22-2023 Epithelial cells.squamous LM Ql (Urine sed) 0-1 [HPF] 0-2 [facility] Urea nitrogen [Mass/volume] in Serum or PlasmaOrdered By: Danial Gould on 07-22-2023 Urea nitrogen [Mass/Vol] 22 mg/dL 7-25 [facility] Urine bacteria detection by automated methodOrdered By: Danial Gould on 07-22-2023 Bacteria Auto Ql (U) 2+ None Seen [facility] Urine clarity by refractomet ry automatedOrdered By: Danial Gould 07-22-2023 Clarity Refractometry automated (U) Turbid Clear [facility] Urine glucose measurement by automated test strip (mass/volume)Ordered By: Danial Gould on 07-22-2023 Glucose Auto test strip (U) [Mass/Vol] Normal mg/dL Normal [facility] Urine hemoglobin detection b y automated test stripOrdered By: Danial Gould on 07-22-2023 Hemoglobin Auto test strip Ql (U) 3+ Negative [facility] Urine leukocyte esterase det ection by automated test stripOrdered By: Danial Gould on 07-22-2023 Leukocyte esterase Auto test strip Ql (U) 4+ Negative [facility] Urobilinogen Auto test strip (U) [Mass/Vol]Ordered By: Danial Gould on 07-22-2023 Urobilinogen (U) [Mass/Vol] Normal mg/dL Normal [facility] WBC Auto (Bld) [#/Vol]Ordere d By: Danial Gould on 07-22-2023 WBC (Bld) [#/Vol] 4.1 10*3/uL 4.1-10.[address] [facility] pH Auto test strip (U)Ordere d By: Danial Gould on 07-22-2023 pH (U) 7.0 [pH] 5.0-9.0 [facility] Basophils Auto (Bld) [#/Vol] Ordered By: Kary Boone on 04-22-2023 Basophils (Bld) [#/Vol] 0.1 10*3/uL 0.0-0.2 [facility] Basophils/100 WBC Auto (Bld) Ordered By: Kary Boone on 04-22-2023 Basophils/100 WBC (Bld) 1.0 % . [facility] Calcium [Mass/volume] in Ser um or PlasmaOrdered By: Kary Boone on 04-22-2023 Calcium [Mass/Vol] 9.5 mg/dL 8.6-10.[address] [facility] Carbon dioxide, total [Moles /volume] in Serum or PlasmaOrdered By: Kary Boone on 04-22-2023 CO2 [Moles/Vol] 26.9 mmol/L 21.0-31.0 [facility] Chloride [Moles/volume] in S jennifer or PlasmaOrdered By: Kary Boone on 04-22-2023 Chloride [Moles/Vol] 106 mmol/L 98-107 [facility] Creatinine [Mass/volume] in Serum or PlasmaOrdered By: Kary Boone on 04-22-2023 Creatinine [Mass/Vol] 0.66 mg/dL 0.70-1.30 [facility] Eosinophils Auto (Bld) [#/Vo l]Ordered By: Kary Boone on 04-22-2023 Eosinophils (Bld) [#/Vol] 0.4 10*3/uL 0.0-0.45 [facility] Eosinophils/100 WBC Auto (Bl d)Ordered By: Kary Boone on 04-22-2023 Eosinophils/100 WBC (Bld) 7.0 % . [facility] Erythrocyte distribution wid th Auto (RBC) [Ratio]Ordered By: Kary Boone on 04-22-2023 Erythrocyte distribution width (RBC) [Ratio] 14.8 % 12.0-14.8 [facility] Glucose [Mass/volume] in Ser um or PlasmaOrdered By: Kary Boone on 04-22-2023 Glucose [Mass/Vol] 115 mg/dL 70-[address] [facility] Comment on above: ADA recommended refe rence rangeRandom Glucose Reference Range is dependent on time and content of last meal. Glucose of more than 200 mg/dL in a nonstressed, ambulatory subject supports the diagnosis of Diabetes Mellitus. Hematocrit Auto (Bld) [Volum e fraction]Ordered By: Kary Boone on 04-22-2023 Hematocrit (Bld) [Volume fraction] 36.0 % 38.8-50.0 [facility] Hemoglobin [Mass/volume] in BloodOrdered By: Kary Boone on 04-22-2023 Hemoglobin (Bld) [Mass/Vol] 11.9 g/dL 13.0-17.0 [facility] Leukocytes [#/volume] correc mayte for nucleated erythrocytes in Blood by Automated counOrdered By: Kary Boone on 04-22-2023 WBC corrected for nucl RBC Auto (Bld) [#/Vol] 5.7 10*3/uL 4.1-10.5 [facility] Lymphocytes Auto (Bld) [#/Vo l]Ordered By: Kary Boone on 04-22-2023 Lymphocytes (Bld) [#/Vol] 1.9 10*3/uL 1.00-4.8 [facility] Lymphocytes/100 WBC Auto (Bl d)Ordered By: Kary Boone on 04-22-2023 Lymphocytes/100 WBC (Bld) 33.5 % . [facility] MCH Auto (RBC) [Entitic mass ]Ordered By: Kary Boone on 04-22-2023 MCH (RBC) [Entitic mass] 27.9 pg 27.5-35.2 [facility] MCHC Auto (RBC) [Mass/Vol]Or dered By: Kary Boone on 04-22-2023 MCHC (RBC) [Mass/Vol] 33.0 g/dL 32.5-35.6 [facility] MCV Auto (RBC) [Entitic vol] Ordered By: Kary Boone on 04-22-2023 MCV (RBC) [Entitic vol] 84.7 fL 83.5-101 [facility] Monocyte distribution width [Entitic volume] in Blood by AutomatedOrdered By: Kary Boone on 04-22-2023 Monocyte distribution width Auto (Bld) [Entitic vol] 18.01 % 0.00-20.00 [facility] Monocytes Auto (Bld) [#/Vol] Ordered By: Kary Boone on 04-22-2023 Monocytes (Bld) [#/Vol] 0.7 10*3/uL 0.0-0.8 [facility] Monocytes/100 WBC Auto (Bld) Ordered By: Kary Boone on 04-22-2023 Monocytes/100 WBC (Bld) 13.3 % . [facility] Neutrophils Auto (Bld) [#/Vo l]Ordered By: Kary Boone on 04-22-2023 Neutrophils (Bld) [#/Vol] 2.6 10*3/uL 1.8-7.7 [facility] Neutrophils/100 WBC Auto (Bl d)Ordered By: Kary Boone on 04-22-2023 Neutrophils/100 WBC (Bld) 45.2 % . [facility] No Panel InformationOrdered By: Kary Boone on 04-22-2023 Estimated GFR (CKD-EPI) > 60.0 mL/Min [facility] Creatinine Clearance (Chem 87.50 [facility] Nucleated erythrocytes [Pres ence] in Blood by Automated countOrdered By: Kary Boone on 04-22-2023 Nucleated RBC Auto Ql (Bld) 0.2 /100{WBC} 0-0.5 [facility] Platelet mean volume Auto (B ld) [Entitic vol]Ordered By: Kary Boone on 04-22-2023 Platelet mean volume (Bld) [Entitic vol] 8.2 fL 6.6-10.1 [facility] Platelets Auto (Bld) [#/Vol] Ordered By: Kary Boone on 04-22-2023 Platelets (Bld) [#/Vol] 241 10*3/uL 150-450 [facility] Potassium [Moles/volume] in Serum or PlasmaOrdered By: Kary Boone on 04-22-2023 Potassium [Moles/Vol] 4.1 mmol/L 3.5-5.1 [facility] RBC Auto (Bld) [#/Vol]Ordere d By: Kary Boone on 04-22-2023 RBC (Bld) [#/Vol] 4.26 10*6/uL 3.90-5.60 [facility] Serum or plasma anion gap de terminationOrdered By: Kary Boone on 04-22-2023 Anion gap [Moles/Vol] 10.2 mmol/L 6.0-15.0 [facility] Sodium [Moles/volume] in Ser um or PlasmaOrdered By: Kary Boone on 04-22-2023 Sodium [Moles/Vol] 139 mmol/L 136-[address] [facility] Urea nitrogen [Mass/volume] in Serum or PlasmaOrdered By: Kary Boone on 04-22-2023 Urea nitrogen [Mass/Vol] 14 mg/dL 7-25 [facility] WBC Auto (Bld) [#/Vol]Ordere d By: Kary Boone on 04-22-2023 WBC (Bld) [#/Vol] 5.7 10*3/uL 4.1-10.[address] [facility] Calcium [Mass/volume] in Ser um or PlasmaOrdered By: Zeinab Poole on 03-20-2023 Calcium [Mass/Vol] 8.2 mg/dL 8.6-10.[address] [facility] Carbon dioxide, total [Moles /volume] in Serum or PlasmaOrdered By: Zeinab Poole on 03-20-2023 CO2 [Moles/Vol] 25.6 mmol/L 21.0-31.0 [facility] Chloride [Moles/volume] in S jennifer or PlasmaOrdered By: Zeinab Poole on 03-20-2023 Chloride [Moles/Vol] 109 mmol/L 98-107 [facility] Creatinine [Mass/volume] in Serum or PlasmaOrdered By: Zeinab Poole on 03-20-2023 Creatinine [Mass/Vol] 1.28 mg/dL 0.70-1.30 [facility] Glucose [Mass/volume] in Ser um or PlasmaOrdered By: Zeinab Poole on 03-20-2023 Glucose [Mass/Vol] 97 mg/dL 70-[address] [facility] Comment on above: ADA recommended refe rence rangeRandom Glucose Reference Range is dependent on time and content of last meal. Glucose of more than 200 mg/dL in a nonstressed, ambulatory subject supports the diagnosis of Diabetes Mellitus. No Panel InformationOrdered By: Zeinab Poole on 03-20-2023 Estimated GFR (CKD-EPI) > 60.0 mL/Min [facility] Creatinine Clearance (Chem 55.23 [facility] Potassium [Moles/volume] in Serum or PlasmaOrdered By: Zeinab Poole on 03-20-2023 Potassium [Moles/Vol] 3.9 mmol/L 3.5-5.1 [facility] Serum or plasma anion gap de terminationOrdered By: Zeinab Poole on 03-20-2023 Anion gap [Moles/Vol] 7.3 mmol/L 6.0-15.0 [facility] Sodium [Moles/volume] in Ser um or PlasmaOrdered By: Zeinab Rebeccaskiene on 03-20-2023 Sodium [Moles/Vol] 138 mmol/L 136-[address] [facility] Urea nitrogen [Mass/volume] in Serum or PlasmaOrdered By: Zeinab Semaskiene on 03-20-2023 Urea nitrogen [Mass/Vol] 29 mg/dL 7-25 [facility] Anisocytosis LM Ql (Bld)Orde red By: Zeinab Semaskiene on 03-19-2023 Anisocytosis Ql (Bld) Slight [facility] Band form neutrophils/100 WB C Manual cnt (Bld)Ordered By: Zeinab Rebeccaskiene on 03-19-2023 Band form neutrophils/100 WBC (Bld) 1 % 0-5 [facility] Basophils Auto (Bld) [#/Vol] Ordered By: Zeinab Rebeccaskiene on 03-19-2023 Basophils (Bld) [#/Vol] N/A [facility] Basophils/100 WBC Auto (Bld) Ordered By: Zeinab Semaskiene on 03-19-2023 Basophils/100 WBC (Bld) N/A [facility] Ney cells [Presence] in Blo od by Light microscopyOrdered By: Zeinab Semaskiene on 03-19-2023 Ney cells LM Ql (Bld) Slight [facility] Eosinophils Auto (Bld) [#/Vo l]Ordered By: Zeinab Rebeccaskiene on 03-19-2023 Eosinophils (Bld) [#/Vol] N/A [facility] Eosinophils/100 WBC Auto (Bl d)Ordered By: Zeinab Semaskiene on 03-19-2023 Eosinophils/100 WBC (Bld) N/A [facility] Eosinophils/100 WBC Manual c nt (Bld)Ordered By: Zeinab Semaskiene on 03-19-2023 Eosinophils/100 WBC (Bld) 3 % 1-3 [facility] Erythrocyte distribution wid th Auto (RBC) [Ratio]Ordered By: Zeinab Rebeccaskiene on 03-19-2023 Erythrocyte distribution width (RBC) [Ratio] 15.5 % 12.0-14.8 [facility] Giant platelets/100 leukocyt es [Ratio] in Blood by Manual countOrdered By: Zeinab Poole on 03-19-2023 Giant platelets/100 WBC Manual cnt (Bld) [Ratio] 1 /100{WBC} [facility] Hematocrit Auto (Bld) [Volum e fraction]Ordered By: Zeinab Poole on 03-19-2023 Hematocrit (Bld) [Volume fraction] 31.0 % 38.8-50.0 [facility] Hemoglobin [Mass/volume] in BloodOrdered By: Zeinab Poole on 03-19-2023 Hemoglobin (Bld) [Mass/Vol] 10.4 g/dL 13.0-17.0 [facility] Leukocytes [#/volume] correc mayte for nucleated erythrocytes in Blood by Automated counOrdered By: Zeinab Poole on 03-19-2023 WBC corrected for nucl RBC Auto (Bld) [#/Vol] 9.4 10*3/uL 4.1-10.5 [facility] Lymphocytes Auto (Bld) [#/Vo l]Ordered By: Zeinab Poole on 03-19-2023 Lymphocytes (Bld) [#/Vol] N/A [facility] Lymphocytes/100 WBC Auto (Bl d)Ordered By: Zeinab Poole on 03-19-2023 Lymphocytes/100 WBC (Bld) N/A [facility] Lymphocytes/100 WBC Manual c nt (Bld)Ordered By: Zeinab Poole on 03-19-2023 Lymphocytes/100 WBC (Bld) 14 % 18-42 [facility] MCH Auto (RBC) [Entitic mass ]Ordered By: Zeinab Poole on 03-19-2023 MCH (RBC) [Entitic mass] 27.9 pg 27.5-35.2 [facility] MCHC Auto (RBC) [Mass/Vol]Or dered By: Zeinab Poole on 03-19-2023 MCHC (RBC) [Mass/Vol] 33.4 g/dL 32.5-35.6 [facility] MCV Auto (RBC) [Entitic vol] Ordered By: Zeinab Poole on 03-19-2023 MCV (RBC) [Entitic vol] 83.7 fL 83.5-101 [facility] Macrocytes LM Ql (Bld)Ordere d By: Zeinab Semaskiene on 03-19-2023 Macrocytes Ql (Bld) Slight [facility] Microcytes LM Ql (Bld)Ordere d By: Zeinab Semaskiene on 03-19-2023 Microcytes Ql (Bld) Slight [facility] Monocytes Auto (Bld) [#/Vol] Ordered By: Zeinab Semaskiene on 03-19-2023 Monocytes (Bld) [#/Vol] N/A [facility] Monocytes/100 WBC Auto (Bld) Ordered By: Zeinab Semaskiene on 03-19-2023 Monocytes/100 WBC (Bld) N/A [facility] Monocytes/100 WBC Manual cnt (Bld)Ordered By: Zeinab Rebeccaskiene on 03-19-2023 Monocytes/100 WBC (Bld) 8 % 2-11 [facility] Neutrophils Auto (Bld) [#/Vo l]Ordered By: Zeinab Semaskiene on 03-19-2023 Neutrophils (Bld) [#/Vol] N/A [facility] Neutrophils/100 WBC Auto (Bl d)Ordered By: Zeinab Semaskiene on 03-19-2023 Neutrophils/100 WBC (Bld) N/A [facility] Nucleated erythrocytes [Pres ence] in Blood by Automated countOrdered By: Zeinab Rebeccaskiene on 03-19-2023 Nucleated RBC Auto Ql (Bld) N/A [facility] Ovalocyte detectionOrdered B y: Zeinab Semaskiene on 03-19-2023 Ovalocytes LM Ql (Bld) Slight [facility] Platelet adequacy [Presence] in Blood by Light microscopyOrdered By: Zeinab Semaskiene on 03-19-2023 Platelets LM Ql (Bld) Decreased Normal [facility] Platelet mean volume Auto (B ld) [Entitic vol]Ordered By: Zeinab Semaskiene on 03-19-2023 Platelet mean volume (Bld) [Entitic vol] 8.6 fL 6.6-10.1 [facility] Platelet morphology finding [Identifier] in BloodOrdered By: Zeinab Poole on 03-19-2023 Platelet morphology finding Nom (Bld) Normal Normal [facility] Platelets Auto (Bld) [#/Vol] Ordered By: Zeinab Stephense on 03-19-2023 Platelets (Bld) [#/Vol] 101 10*3/uL 150-450 [facility] Platelets Large [Presence] i n Blood by Light microscopyOrdered By: Zeinab Poole on 03-19-2023 Platelets Large LM Ql (Bld) Slight [facility] Poikilocytosis [Presence] in Blood by Light microscopyOrdered By: Zeinab Poole on 03-19-2023 Poikilocytosis LM Ql (Bld) Slight [facility] RBC Auto (Bld) [#/Vol]Ordere d By: Zeinab Poole on 03-19-2023 RBC (Bld) [#/Vol] 3.71 10*6/uL 3.90-5.60 [facility] RBC morphologyOrdered By: Casper Poole on 03-19-2023 RBC morphology finding Nom (Bld) N/A [facility] Segmented neutrophils/100 WB C Manual cnt (Bld)Ordered By: Zeinab Poole on 03-19-2023 Segmented neutrophils/100 WBC (Bld) 74 % 50-70 [facility] Target cellsOrdered By: Zeinab Poole on 03-19-2023 Target cells LM Ql (Bld) Slight [facility] WBC Auto (Bld) [#/Vol]Ordere d By: Zeinab Stephense on 03-19-2023 WBC (Bld) [#/Vol] 9.4 10*3/uL 4.1-10.[address] [facility] Dohle bodies detectionOrdere d By: Zeinab Stephense on 03-18-2023 Dohle body LM Ql (Bld) Slight [facility] Toxic leukocyte vacuolation detectionOrdered By: Zeinab Poole on 03-17-2023 Leukocyte toxic vacuoles LM Ql (Bld) Moderate [facility] Alanine aminotransferase [En zymatic activity/volume] in Serum or PlasmaOrdered By: Gilbert Lockwood on 2023 ALT [Catalytic activity/Vol] 76 U/L 7-52 [facility] Albumin [Mass/volume] in Ser um or Plasma by Bromocresol green (BCG) dye binding methoOrdered By: Gilbert Lockwood on 2023 Albumin BCG dye [Mass/Vol] 3.1 g/dL 3.5-5.7 [facility] Alkaline phosphatase [Enzyma tic activity/volume] in Serum or PlasmaOrdered By: Gilbert Lockwood on 2023 ALP [Catalytic activity/Vol] 49 U/L 34-104 [facility] Aspartate aminotransferase [ Enzymatic activity/volume] in Serum or PlasmaOrdered By: Gilbert Lockwood on 2023 AST [Catalytic activity/Vol] 209 U/L 13-39 [facility] Bilirubin.total [Mass/volume ] in Serum or PlasmaOrdered By: Gilbert Lockwood on 2023 Bilirubin [Mass/Vol] 0.9 mg/dL 0.3-1.0 [facility] Blood toxic granulation dete ction by light microscopyOrdered By: Gilbert Lockwood on 2023 Toxic granules LM Ql (Bld) Slight [facility] Creatinine [Mass/volume] in UrineOrdered By: Jim Arcos on 2023 Creatinine (U) [Mass/Vol] 109.0 mg/dL 14.0-26.0 [facility] Eosinophils detection in uri ne sediment by Black stainOrdered By: Jim Arcos on 2023 Eosinophils Black stain Ql (Urine sed) 2 % 0-1 [facility] Globulin Calc (S) [Mass/Vol] Ordered By: Gilbert Lockwood on 2023 Globulin (S) [Mass/Vol] 2.5 g/dL [facility] Lactate [Moles/volume] in Se rum or PlasmaOrdered By: Gilbert Lockwood on 2023 Lactate [Moles/Vol] 1.3 mmol/L 0.5-2.2 [facility] Metamyelocytes/100 WBC Manua l cnt (Bld)Ordered By: Gilbert Lockwood on 2023 Metamyelocytes/100 WBC (Bld) 5 % 0-0 [facility] Potassium [Moles/volume] in UrineOrdered By: Jim Arcos on 2023 Potassium (U) [Moles/Vol] 39.7 mmol/L [facility] Comment on above: No reference range e stablished Protein [Mass/volume] in Ser um or PlasmaOrdered By: Gilbert Lockwood on 2023 Protein [Mass/Vol] 5.6 g/dL 6.4-8.[address] [facility] Protein [Mass/volume] in Uri neOrdered By: Jim Arcos on 2023 Protein (U) [Mass/Vol] 103 mg/dL 0-9 [facility] Serum or plasma albumin/glob ulin mass ratioOrdered By: Gilbert Lockwood on 2023 Albumin/Globulin [Mass ratio] 1.2 {ratio} [facility] Sodium [Moles/volume] in Uri neOrdered By: Jim Arcos on 2023 Sodium (U) [Moles/Vol] 67 mmol/L [facility] Comment on above: No reference range e stablished Troponin I.cardiac [Mass/vol ume] in Serum or Plasma by Detection limit <= 0.01 ng/Ordered By: Gilbert Lockwood on 2023 Troponin I.cardiac DL <= 0.01 ng/mL [Mass/Vol] 93.2 pg/mL 0.0-20.0 [facility] Comment on above: Critical Result : Ca lled to and read back by: STEFANIE KENDALL at: 2023 06:27:35 by:ZOLTAN Automated erythrocytes count in urine sediment (number/area)Ordered By: River Alberto on 03-14-2023 RBC Auto (Urine sed) [#/Area] 5-9 [HPF] 0-4 [facility] Automated leukocytes count i n urine sediment (number/area)Ordered By: River Alberto on 03-14-2023 WBC Auto (Urine sed) [#/Area] Innumerable [HPF] 0-4 [facility] Bilirubin Test strip Ql (U)O rdered By: River Alberto on 03-14-2023 Bilirubin Ql (U) Negative Negative [facility] Color Auto (U)Ordered By: Moo Alberto on 03-14-2023 Color (U) Yellow Yellow [facility] Ketones Auto test strip (U) [Mass/Vol]Ordered By: River Alberto on 03-14-2023 Ketones (U) [Mass/Vol] Negative Negative [facility] Laboratory - UrinalysisOrder ed By: River Alberto on 03-14-2023 Hyaline casts LM Ql (Urine sed) None seen [LPF] 0-8 [facility] Nitrite Test strip Ql (U)Ord ered By: River Alberto on 03-14-2023 Nitrite Ql (U) Negative Negative [facility] Protein Auto test strip (U) [Mass/Vol]Ordered By: River Alberto on 03-14-2023 Protein (U) [Mass/Vol] 30 mg/dL Negative [facility] Specific gravity Auto test s trip (U) [Rel density]Ordered By: River Alberto on 03-14-2023 Specific gravity (U) [Rel density] 1.009 1.001-1.030 [facility] Squamous epithelial cells de tection in urine sediment by light microscopyOrdered By: River Alberto on 03-14-2023 Epithelial cells.squamous LM Ql (Urine sed) None seen [HPF] 0-2 [facility] Urine bacteria detection by automated methodOrdered By: River Alberto on 03-14-2023 Bacteria Auto Ql (U) 4+ None Seen [facility] Urine clarity by refractomet ry automatedOrdered By: River Alberto on 03-14-2023 Clarity Refractometry automated (U) Turbid Clear [facility] Urine culture routineOrdered By: River Alberto on 03-14-2023 Bacteria identified Cx Nom (U) Enterococcus faecalis [facility] [facility] Cx Nom (U) Klebsiella pneumoniae (ESBL) [facility] Bacteria identified Cx Nom (U) Acinetobacter crystal/nosocom grp [facility] Urine glucose measurement by automated test strip (mass/volume)Ordered By: River Alberto on 03-14-2023 Glucose Auto test strip (U) [Mass/Vol] Normal mg/dL Normal [facility] Urine hemoglobin detection b y automated test stripOrdered By: River Alberto on 03-14-2023 Hemoglobin Auto test strip Ql (U) 3+ Negative [facility] Urine leukocyte esterase det ection by automated test stripOrdered By: River Alberto on 03-14-2023 Leukocyte esterase Auto test strip Ql (U) 4+ Negative [facility] Urobilinogen Auto test strip (U) [Mass/Vol]Ordered By: River Alberto on 03-14-2023 Urobilinogen (U) [Mass/Vol] Normal mg/dL Normal [facility] Yeast detection in urine sed iment by light microscopyOrdered By: River Alberto on 03-14-2023 Yeast LM Ql (Urine sed) None seen [HPF] None Se en [facility] pH Auto test strip (U)Ordere d By: River Alberto on 03-14-2023 pH (U) 6.0 [pH] 5.0-9.0 [facility] CNPNon 03-01-2023 CNPN Normal [facility] Alanine aminotransferase [En zymatic activity/volume] in Serum or PlasmaOrdered By: William Carver on 02-14-2023 ALT [Catalytic activity/Vol] 7 U/L 7-52 [facility] Albumin [Mass/volume] in Ser um or Plasma by Bromocresol green (BCG) dye binding methoOrdered By: William Carver on 02-14-2023 Albumin BCG dye [Mass/Vol] 3.9 g/dL 3.5-5.7 [facility] Alkaline phosphatase [Enzyma tic activity/volume] in Serum or PlasmaOrdered By: William Carver on 02-14-2023 ALP [Catalytic activity/Vol] 55 U/L 34-104 [facility] Aspartate aminotransferase [ Enzymatic activity/volume] in Serum or PlasmaOrdered By: William Carver on 02-14-2023 AST [Catalytic activity/Vol] 10 U/L 13-39 [facility] Automated erythrocytes count in urine sediment (number/area)Ordered By: William Carver on 02-14-2023 RBC Auto (Urine sed) [#/Area] 1-2 [HPF] 0-4 [facility] Automated leukocytes count i n urine sediment (number/area)Ordered By: William Carver on 02-14-2023 WBC Auto (Urine sed) [#/Area] 50-100 [HPF] 0-4 [facility] Automated urine hyaline cast s count (number/volume)Ordered By: William Carver on 02-14-2023 Hyaline casts Auto (U) [#/Vol] 5-9 [LPF] 0-1 [facility] Automated urine sediment alice cium oxalate crystal count by microscopy (number/high powOrdered By: William Carver on 02-14-2023 Calcium oxalate crystals LM.HPF (Urine sed) [#/Area] 1+ [HPF] [facility] Basophils Auto (Bld) [#/Vol] Ordered By: William Carver on 02-14-2023 Basophils (Bld) [#/Vol] 0.1 10*3/uL 0.0-0.2 [facility] Basophils/100 WBC Auto (Bld) Ordered By: William Carver on 02-14-2023 Basophils/100 WBC (Bld) 1.1 % . [facility] Bilirubin Test strip Ql (U)O rdered By: William Carver on 02-14-2023 Bilirubin Ql (U) Negative Negative [facility] Bilirubin.direct [Mass/volum e] in Serum or PlasmaOrdered By: William Carver on 02-14-2023 Bilirubin.direct [Mass/Vol] 0.00 mg/dL 0.03-0.18 [facility] Comment on above: If the DBIL is less than 0.1, IBIL is not able to becalculated. Bilirubin.total [Mass/volume ] in Serum or PlasmaOrdered By: William Carver on 02-14-2023 Bilirubin [Mass/Vol] 0.5 mg/dL 0.3-1.0 [facility] Calcium [Mass/volume] in Ser um or PlasmaOrdered By: William Carver on 02-14-2023 Calcium [Mass/Vol] 9.4 mg/dL 8.6-10.[address] [facility] Carbon dioxide, total [Moles /volume] in Serum or PlasmaOrdered By: William Carver on 02-14-2023 CO2 [Moles/Vol] 26.8 mmol/L 21.0-31.0 [facility] Casts typing in urine sedime nt by light microscopyOrdered By: William Carver on 02-14-2023 Casts LM Nom (Urine sed) None seen [LPF] None Seen [facility] Chloride [Moles/volume] in S jennifer or PlasmaOrdered By: William Carver on 02-14-2023 Chloride [Moles/Vol] 109 mmol/L 98-107 [facility] Color Auto (U)Ordered By: Katarina Carver on 02-14-2023 Color (U) Yellow Yellow [facility] Creatinine [Mass/volume] in Serum or PlasmaOrdered By: William Carver on 02-14-2023 Creatinine [Mass/Vol] 0.65 mg/dL 0.70-1.30 [facility] Eosinophils Auto (Bld) [#/Vo l]Ordered By: William Carver on 02-14-2023 Eosinophils (Bld) [#/Vol] 0.2 10*3/uL 0.0-0.45 [facility] Eosinophils/100 WBC Auto (Bl d)Ordered By: William Carver on 02-14-2023 Eosinophils/100 WBC (Bld) 3.2 % . [facility] Erythrocyte distribution wid th Auto (RBC) [Ratio]Ordered By: William Carver on 02-14-2023 Erythrocyte distribution width (RBC) [Ratio] 14.9 % 12.0-14.8 [facility] Fine granular cast count in urine sediment by microscopy (number/low power field )Ordered By: William Carver on 02-14-2023 Fine Granular Casts LM.LPF (Urine sed) [#/Area] 3-4 [LPF] 0-1 [facility] Globulin Calc (S) [Mass/Vol] Ordered By: William Carver on 02-14-2023 Globulin (S) [Mass/Vol] 3.0 g/dL [facility] Glucose [Mass/volume] in Ser um or PlasmaOrdered By: William Carver on 02-14-2023 Glucose [Mass/Vol] 101 mg/dL 70-[address] [facility] Comment on above: ADA recommended refe rence rangeRandom Glucose Reference Range is dependent on time and content of last meal. Glucose of more than 200 mg/dL in a nonstressed, ambulatory subject supports the diagnosis of Diabetes Mellitus. Hematocrit Auto (Bld) [Volum e fraction]Ordered By: William Carver on 02-14-2023 Hematocrit (Bld) [Volume fraction] 37.2 % 38.8-50.0 [facility] Hemoglobin [Mass/volume] in BloodOrdered By: William Carver on 02-14-2023 Hemoglobin (Bld) [Mass/Vol] 12.3 g/dL 13.0-17.0 [facility] Ketones Auto test strip (U) [Mass/Vol]Ordered By: William Carver on 02-14-2023 Ketones (U) [Mass/Vol] Trace Negative [facility] Leukocytes [#/volume] correc mayte for nucleated erythrocytes in Blood by Automated counOrdered By: William Carver on 02-14-2023 WBC corrected for nucl RBC Auto (Bld) [#/Vol] 6.0 10*3/uL 4.1-10.5 [facility] Lipase [Enzymatic activity/v olume] in Serum or PlasmaOrdered By: William Carver on 02-14-2023 Lipase [Catalytic activity/Vol] 7.0 U/L 11.0-82.0 [facility] Lymphocytes Auto (Bld) [#/Vo l]Ordered By: William Carver on 02-14-2023 Lymphocytes (Bld) [#/Vol] 1.8 10*3/uL 1.00-4.8 [facility] Lymphocytes/100 WBC Auto (Bl d)Ordered By: William Carver on 02-14-2023 Lymphocytes/100 WBC (Bld) 30.3 % . [facility] MCH Auto (RBC) [Entitic mass ]Ordered By: William Carver on 02-14-2023 MCH (RBC) [Entitic mass] 27.3 pg 27.5-35.2 [facility] MCHC Auto (RBC) [Mass/Vol]Or dered By: William Carver on 02-14-2023 MCHC (RBC) [Mass/Vol] 33.0 g/dL 32.5-35.6 [facility] MCV Auto (RBC) [Entitic vol] Ordered By: William Carver on 02-14-2023 MCV (RBC) [Entitic vol] 82.7 fL 83.5-101 [facility] Monocyte distribution width [Entitic volume] in Blood by AutomatedOrdered By: William Carver on 02-14-2023 Monocyte distribution width Auto (Bld) [Entitic vol] 16.55 % 0.00-20.00 [facility] Monocytes Auto (Bld) [#/Vol] Ordered By: William Carver on 02-14-2023 Monocytes (Bld) [#/Vol] 0.6 10*3/uL 0.0-0.8 [facility] Monocytes/100 WBC Auto (Bld) Ordered By: William Carver on 02-14-2023 Monocytes/100 WBC (Bld) 9.8 % . [facility] Neutrophils Auto (Bld) [#/Vo l]Ordered By: William Carver on 02-14-2023 Neutrophils (Bld) [#/Vol] 3.3 10*3/uL 1.8-7.7 [facility] Neutrophils/100 WBC Auto (Bl d)Ordered By: William Carver on 02-14-2023 Neutrophils/100 WBC (Bld) 55.6 % . [facility] Nitrite Test strip Ql (U)Ord ered By: William Carver on 02-14-2023 Nitrite Ql (U) Negative Negative [facility] No Panel InformationOrdered By: William Carver on 02-14-2023 Estimated GFR (CKD-EPI) > 60.0 mL/Min [facility] Creatinine Clearance (Chem N/A [facility] Nucleated erythrocytes [Pres ence] in Blood by Automated countOrdered By: William Carver on 02-14-2023 Nucleated RBC Auto Ql (Bld) 0.1 /100{WBC} 0-0.5 [facility] Platelet mean volume Auto (B ld) [Entitic vol]Ordered By: William Carver on 02-14-2023 Platelet mean volume (Bld) [Entitic vol] 7.7 fL 6.6-10.1 [facility] Platelets Auto (Bld) [#/Vol] Ordered By: William Carver on 02-14-2023 Platelets (Bld) [#/Vol] 260 10*3/uL 150-450 [facility] Potassium [Moles/volume] in Serum or PlasmaOrdered By: William Carver on 02-14-2023 Potassium [Moles/Vol] 3.7 mmol/L 3.5-5.1 [facility] Protein Auto test strip (U) [Mass/Vol]Ordered By: William Carver on 02-14-2023 Protein (U) [Mass/Vol] 300 mg/dL Negative [facility] Protein [Mass/volume] in Ser um or PlasmaOrdered By: William Carver on 02-14-2023 Protein [Mass/Vol] 6.9 g/dL 6.4-8.[address] [facility] RBC Auto (Bld) [#/Vol]Ordere d By: William Carver on 02-14-2023 RBC (Bld) [#/Vol] 4.50 10*6/uL 3.90-5.60 [facility] Serum or plasma albumin/glob ulin mass ratioOrdered By: William Carver on 02-14-2023 Albumin/Globulin [Mass ratio] 1.3 {ratio} [facility] Serum or plasma anion gap de terminationOrdered By: William Carver on 02-14-2023 Anion gap [Moles/Vol] 7.9 mmol/L 6.0-15.0 [facility] Serum or plasma non-glucuron idated bilirubin measurement (mass/volume)Ordered By: William Carver on 02-14-2023 Bilirubin.indirect [Mass/Vol] 0.5 mg/dL [facility] Sodium [Moles/volume] in Ser um or PlasmaOrdered By: William Carver on 02-14-2023 Sodium [Moles/Vol] 140 mmol/L 136-[address] [facility] Specific gravity Auto test s trip (U) [Rel density]Ordered By: William Carver on 02-14-2023 Specific gravity (U) [Rel density] 1.017 1.001-1.030 [facility] Squamous epithelial cells de tection in urine sediment by light microscopyOrdered By: William Carver on 02-14-2023 Epithelial cells.squamous LM Ql (Urine sed) 0-1 [HPF] 0-2 [facility] Urea nitrogen [Mass/volume] in Serum or PlasmaOrdered By: William Carver on 02-14-2023 Urea nitrogen [Mass/Vol] 9 mg/dL 7-25 [facility] Urine bacteria detection by automated methodOrdered By: William Carver on 02-14-2023 Bacteria Auto Ql (U) None seen None Seen [facility] Urine clarity by refractomet ry automatedOrdered By: William Carver on 02-14-2023 Clarity Refractometry automated (U) Turbid Clear [facility] Urine culture routineOrdered By: William Carver on 02-14-2023 Bacteria identified Cx Nom (U) Acinetobacter crystal/nosocom grp [facility] Urine glucose measurement by automated test strip (mass/volume)Ordered By: William Carver on 02-14-2023 Glucose Auto test strip (U) [Mass/Vol] Normal mg/dL Normal [facility] Urine hemoglobin detection b y automated test stripOrdered By: William Carver on 02-14-2023 Hemoglobin Auto test strip Ql (U) Trace Negative [facility] Urine leukocyte esterase det ection by automated test stripOrdered By: William Carver on 02-14-2023 Leukocyte esterase Auto test strip Ql (U) 3+ Negative [facility] Urine sediment crystal ident ification by light microscopyOrdered By: William Carver on 02-14-2023 Crystals LM Nom (Urine sed) None seen [HPF] [facility] Urobilinogen Auto test strip (U) [Mass/Vol]Ordered By: William Carver on 02-14-2023 Urobilinogen (U) [Mass/Vol] Normal mg/dL Normal [facility] WBC Auto (Bld) [#/Vol]Ordere d By: William Carver on 02-14-2023 WBC (Bld) [#/Vol] 6.0 10*3/uL 4.1-10.[address] [facility] Yeast detection in urine sed iment by light microscopyOrdered By: William Carver on 02-14-2023 Yeast LM Ql (Urine sed) None seen [HPF] None Se en [facility] pH Auto test strip (U)Ordere d By: William Carver on 02-14-2023 pH (U) 7.5 [pH] 5.0-9.0 [facility] Basophils Auto (Bld) [#/Vol] Ordered By: Obbrandondanathainel Floresomar on 02-06-2023 Basophils (Bld) [#/Vol] 0.0 10*3/uL 0.0-0.2 [facility] Basophils/100 WBC Auto (Bld) Ordered By: Obbrandondanathaniel Floresomar on 02-06-2023 Basophils/100 WBC (Bld) 1.1 % . [facility] Calcium [Mass/volume] in Ser um or PlasmaOrdered By: Obbradnondanathaniel Floresomar on 02-06-2023 Calcium [Mass/Vol] 8.8 mg/dL 8.6-10.[address] [facility] Carbon dioxide, total [Moles /volume] in Serum or PlasmaOrdered By: Obbrandondah Daromar on 02-06-2023 CO2 [Moles/Vol] 24.9 mmol/L 21.0-31.0 [facility] Chloride [Moles/volume] in S jennifer or PlasmaOrdered By: Obbrandondah Daromar on 02-06-2023 Chloride [Moles/Vol] 105 mmol/L 98-107 [facility] Creatinine [Mass/volume] in Serum or PlasmaOrdered By: Obbrandondah Daromar on 02-06-2023 Creatinine [Mass/Vol] 0.84 mg/dL 0.70-1.30 [facility] Eosinophils Auto (Bld) [#/Vo l]Ordered By: Obaydah Daromar on 02-06-2023 Eosinophils (Bld) [#/Vol] 0.2 10*3/uL 0.0-0.45 [facility] Eosinophils/100 WBC Auto (Bl d)Ordered By: Obbrandondah Markomar on 02-06-2023 Eosinophils/100 WBC (Bld) 6.5 % . [facility] Erythrocyte distribution wid th Auto (RBC) [Ratio]Ordered By: Ray Betancourt on 02-06-2023 Erythrocyte distribution width (RBC) [Ratio] 14.8 % 12.0-14.8 [facility] Glucose [Mass/volume] in Ser um or PlasmaOrdered By: Ray Betancourt on 02-06-2023 Glucose [Mass/Vol] 125 mg/dL 70-[address] [facility] Comment on above: ADA recommended refe rence rangeRandom Glucose Reference Range is dependent on time and content of last meal. Glucose of more than 200 mg/dL in a nonstressed, ambulatory subject supports the diagnosis of Diabetes Mellitus. Hematocrit Auto (Bld) [Volum e fraction]Ordered By: Ray Betancourt on 02-06-2023 Hematocrit (Bld) [Volume fraction] 37.0 % 38.8-50.0 [facility] Hemoglobin [Mass/volume] in BloodOrdered By: Rya Betancourt on 02-06-2023 Hemoglobin (Bld) [Mass/Vol] 12.1 g/dL 13.0-17.0 [facility] Leukocytes [#/volume] correc mayte for nucleated erythrocytes in Blood by Automated counOrdered By: Ray Betancourt on 02-06-2023 WBC corrected for nucl RBC Auto (Bld) [#/Vol] 2.7 10*3/uL 4.1-10.5 [facility] Lymphocytes Auto (Bld) [#/Vo l]Ordered By: Ray Betancourt on 02-06-2023 Lymphocytes (Bld) [#/Vol] 1.4 10*3/uL 1.00-4.8 [facility] Lymphocytes/100 WBC Auto (Bl d)Ordered By: Ray Betancourt on 02-06-2023 Lymphocytes/100 WBC (Bld) 51.3 % . [facility] MCH Auto (RBC) [Entitic mass ]Ordered By: Ray Betancourt on 02-06-2023 MCH (RBC) [Entitic mass] 27.4 pg 27.5-35.2 [facility] MCHC Auto (RBC) [Mass/Vol]Or dered By: Obaydah Daromar on 02-06-2023 MCHC (RBC) [Mass/Vol] 32.8 g/dL 32.5-35.6 [facility] MCV Auto (RBC) [Entitic vol] Ordered By: Obaydah Daromar on 02-06-2023 MCV (RBC) [Entitic vol] 83.5 fL 83.5-101 [facility] Monocytes Auto (Bld) [#/Vol] Ordered By: Obaydah Daromar on 02-06-2023 Monocytes (Bld) [#/Vol] 0.3 10*3/uL 0.0-0.8 [facility] Monocytes/100 WBC Auto (Bld) Ordered By: Obaydah Daromar on 02-06-2023 Monocytes/100 WBC (Bld) 10.1 % . [facility] Neutrophils Auto (Bld) [#/Vo l]Ordered By: Obbrandondanathaniel Daromar on 02-06-2023 Neutrophils (Bld) [#/Vol] 0.8 10*3/uL 1.8-7.7 [facility] Neutrophils/100 WBC Auto (Bl d)Ordered By: Obbrandondah Markomar on 02-06-2023 Neutrophils/100 WBC (Bld) 31.0 % . [facility] No Panel InformationOrdered By: Obbrandondanathaniel Floresomar on 02-06-2023 Estimated GFR (CKD-EPI) > 60.0 mL/Min [facility] Creatinine Clearance (Chem 87.63 [facility] Nucleated erythrocytes [Pres ence] in Blood by Automated countOrdered By: Obbrandondanathaniel Floresomar on 02-06-2023 Nucleated RBC Auto Ql (Bld) 0.3 /100{WBC} 0-0.5 [facility] Platelet adequacy [Presence] in Blood by Light microscopyOrdered By: Obbrandondah Markomar on 02-06-2023 Platelets LM Ql (Bld) Normal Normal [facility] Platelet mean volume Auto (B ld) [Entitic vol]Ordered By: Obbrandondah Markomar on 02-06-2023 Platelet mean volume (Bld) [Entitic vol] 7.2 fL 6.6-10.1 [facility] Platelet morphology finding [Identifier] in BloodOrdered By: Obbrandondah Daromar on 02-06-2023 Platelet morphology finding Nom (Bld) Normal Normal [facility] Platelets Auto (Bld) [#/Vol] Ordered By: Obaydah Daromar on 02-06-2023 Platelets (Bld) [#/Vol] 277 10*3/uL 150-450 [facility] Potassium [Moles/volume] in Serum or PlasmaOrdered By: Obaydah Daromar on 02-06-2023 Potassium [Moles/Vol] 4.3 mmol/L 3.5-5.1 [facility] RBC Auto (Bld) [#/Vol]Ordere d By: Obaydah Daromar on 02-06-2023 RBC (Bld) [#/Vol] 4.42 10*6/uL 3.90-5.60 [facility] RBC morphologyOrdered By: Ob aydah Daromar on 02-06-2023 RBC morphology finding Nom (Bld) Normal Normal [facility] Serum or plasma anion gap de terminationOrdered By: Obaydah Daromar on 02-06-2023 Anion gap [Moles/Vol] 8.4 mmol/L 6.0-15.0 [facility] Sodium [Moles/volume] in Ser um or PlasmaOrdered By: Obaydah Daromar on 02-06-2023 Sodium [Moles/Vol] 134 mmol/L 136-[address] [facility] Urea nitrogen [Mass/volume] in Serum or PlasmaOrdered By: Obaydah Daromar on 02-06-2023 Urea nitrogen [Mass/Vol] 11 mg/dL 7-25 [facility] WBC Auto (Bld) [#/Vol]Ordere d By: Obaydah Daromar on 02-06-2023 WBC (Bld) [#/Vol] 2.7 10*3/uL 4.1-10.[address] [facility] Alanine aminotransferase [En zymatic activity/volume] in Serum or PlasmaOrdered By: Obaydah Daromar on 02-05-2023 ALT [Catalytic activity/Vol] 5 U/L 7-52 [facility] Albumin [Mass/volume] in Ser um or Plasma by Bromocresol green (BCG) dye binding methoOrdered By: Obbrandondanathaniel Daromar on 02-05-2023 Albumin BCG dye [Mass/Vol] 3.7 g/dL 3.5-5.7 [facility] Alkaline phosphatase [Enzyma tic activity/volume] in Serum or PlasmaOrdered By: Obbrandondah Daromar on 02-05-2023 ALP [Catalytic activity/Vol] 43 U/L 34-104 [facility] Aspartate aminotransferase [ Enzymatic activity/volume] in Serum or PlasmaOrdered By: Obbrandonda Daromar on 02-05-2023 AST [Catalytic activity/Vol] 10 U/L 13-39 [facility] Bilirubin.total [Mass/volume ] in Serum or PlasmaOrdered By: Ghulam Markomar on 02-05-2023 Bilirubin [Mass/Vol] 0.4 mg/dL 0.3-1.0 [facility] Globulin Calc (S) [Mass/Vol] Ordered By: Ghulam Markomar on 02-05-2023 Globulin (S) [Mass/Vol] 2.6 g/dL [facility] Protein [Mass/volume] in Ser um or PlasmaOrdered By: Obbrandonda Daromar on 02-05-2023 Protein [Mass/Vol] 6.3 g/dL 6.4-8.[address] [facility] Serum or plasma albumin/glob ulin mass ratioOrdered By: Obbrandondah Daromar on 02-05-2023 Albumin/Globulin [Mass ratio] 1.4 {ratio} [facility] Automated epithelial cells c ount in urine sediment (number/area)Ordered By: Christin Manzanares on 02-03-2023 Epithelial cells Auto (Urine sed) [#/Area] 0-1 [HPF] 0-2 [facility] Automated erythrocytes count in urine sediment (number/area)Ordered By: Christin Manzanares on 02-03-2023 RBC Auto (Urine sed) [#/Area] 5-9 [HPF] 0-4 [facility] Automated leukocytes count i n urine sediment (number/area)Ordered By: Christin Manzanares on 02-03-2023 WBC Auto (Urine sed) [#/Area] 20-49 [HPF] 0-4 [facility] Automated urine hyaline cast s count (number/volume)Ordered By: Christin Manzanares on 02-03-2023 Hyaline casts Auto (U) [#/Vol] None seen [LPF] 0-1 [facility] Automated urine sediment alice cium oxalate crystal count by microscopy (number/high powOrdered By: Christin Manzanares on 02-03-2023 Calcium oxalate crystals LM.HPF (Urine sed) [#/Area] Rare [HPF] [facility] Basophils Auto (Bld) [#/Vol] Ordered By: Christin Manzanares on 02-03-2023 Basophils (Bld) [#/Vol] 0.0 10*3/uL 0.0-0.2 [facility] Basophils/100 WBC Auto (Bld) Ordered By: Christin Manzanares on 02-03-2023 Basophils/100 WBC (Bld) 0.6 % . [facility] Bilirubin Test strip Ql (U)O rdered By: Christin Manzanares on 02-03-2023 Bilirubin Ql (U) Negative Negative [facility] CNOVon 02-03-2023 CNOV Normal [facility] Calcium [Mass/volume] in Ser um or PlasmaOrdered By: Christin Manzanares on 02-03-2023 Calcium [Mass/Vol] 9.0 mg/dL 8.6-10.[address] [facility] Carbon dioxide, total [Moles /volume] in Serum or PlasmaOrdered By: Christin Manzanares on 02-03-2023 CO2 [Moles/Vol] 25.3 mmol/L 21.0-31.0 [facility] Chloride [Moles/volume] in S jennifer or PlasmaOrdered By: Christin Manzanares on 02-03-2023 Chloride [Moles/Vol] 108 mmol/L 98-107 [facility] Color Auto (U)Ordered By: Me martin Manzanares on 02-03-2023 Color (U) Yellow Yellow [facility] Creatinine [Mass/volume] in Serum or PlasmaOrdered By: Christin Manzanares on 02-03-2023 Creatinine [Mass/Vol] 0.70 mg/dL 0.70-1.30 [facility] Eosinophils Auto (Bld) [#/Vo l]Ordered By: Christin Manzanares on 02-03-2023 Eosinophils (Bld) [#/Vol] 0.2 10*3/uL 0.0-0.45 [facility] Eosinophils/100 WBC Auto (Bl d)Ordered By: Christin Manzanares on 02-03-2023 Eosinophils/100 WBC (Bld) 4.0 % . [facility] Erythrocyte distribution wid th Auto (RBC) [Ratio]Ordered By: Christin Manzanares on 02-03-2023 Erythrocyte distribution width (RBC) [Ratio] 14.5 % 12.0-14.8 [facility] [facility] Glucose [Mass/volume] in Ser um or PlasmaOrdered By: Christin Manzanares on 02-03-2023 Glucose [Mass/Vol] 115 mg/dL 70-[address] [facility] Comment on above: ADA recommended refe rence rangeRandom Glucose Reference Range is dependent on time and content of last meal. Glucose of more than 200 mg/dL in a nonstressed, ambulatory subject supports the diagnosis of Diabetes Mellitus. Hematocrit Auto (Bld) [Volum e fraction]Ordered By: Christin Manzanares on 02-03-2023 Hematocrit (Bld) [Volume fraction] 36.4 % 38.8-50.0 [facility] Hemoglobin [Mass/volume] in BloodOrdered By: Christin Manzanares on 02-03-2023 Hemoglobin (Bld) [Mass/Vol] 12.0 g/dL 13.0-17.0 [facility] Ketones Auto test strip (U) [Mass/Vol]Ordered By: Christin Manzanares on 02-03-2023 Ketones (U) [Mass/Vol] Negative Negative [facility] Lactate [Moles/volume] in Se rum or PlasmaOrdered By: Christin Manzanares on 02-03-2023 Lactate [Moles/Vol] 0.8 mmol/L 0.5-2.2 [facility] Leukocytes [#/volume] correc mayte for nucleated erythrocytes in Blood by Automated counOrdered By: Christin Manzanares on 11-09-2023 WBC corrected for nucl RBC Auto (Bld) [#/Vol] 6.1 10*3/uL 4.1-10.5 [facility] Lymphocytes Auto (Bld) [#/Vo l]Ordered By: Christin Manzanares on 02-03-2023 Lymphocytes (Bld) [#/Vol] 1.8 10*3/uL 1.00-4.8 [facility] Lymphocytes/100 WBC Auto (Bl d)Ordered By: Christin Manzanares on 02-03-2023 Lymphocytes/100 WBC (Bld) 28.7 % . [facility] MCH Auto (RBC) [Entitic mass ]Ordered By: Christin Manzanares on 02-03-2023 MCH (RBC) [Entitic mass] 27.4 pg 27.5-35.2 [facility] MCHC Auto (RBC) [Mass/Vol]Or dered By: Christin Manzanares on 02-03-2023 MCHC (RBC) [Mass/Vol] 33.1 g/dL 32.5-35.6 [facility] MCV Auto (RBC) [Entitic vol] Ordered By: Christin Manzanares on 02-03-2023 MCV (RBC) [Entitic vol] 82.8 fL 83.5-101 [facility] Monocyte distribution width [Entitic volume] in Blood by AutomatedOrdered By: Christin Manzanares on 02-03-2023 Monocyte distribution width Auto (Bld) [Entitic vol] 19.15 % 0.00-20.00 [facility] Monocytes Auto (Bld) [#/Vol] Ordered By: Christin Manzanares on 02-03-2023 Monocytes (Bld) [#/Vol] 0.5 10*3/uL 0.0-0.8 [facility] Monocytes/100 WBC Auto (Bld) Ordered By: Christin Manzanares on 02-03-2023 Monocytes/100 WBC (Bld) 8.1 % . [facility] Neutrophils Auto (Bld) [#/Vo l]Ordered By: Christin Manzanares on 02-03-2023 Neutrophils (Bld) [#/Vol] 3.6 10*3/uL 1.8-7.7 [facility] Neutrophils/100 WBC Auto (Bl d)Ordered By: Christin Manzanares on 02-03-2023 Neutrophils/100 WBC (Bld) 58.6 % . [facility] Nitrite Test strip Ql (U)Ord ered By: Christin Manzanares on 02-03-2023 Nitrite Ql (U) Positive Negative [facility] No Panel InformationOrdered By: Christin Manzanares on 02-03-2023 Estimated GFR (CKD-EPI) > 60.0 mL/Min [facility] Creatinine Clearance (Chem 95.43 [facility] Nucleated erythrocytes [Pres ence] in Blood by Automated countOrdered By: Christin Manzanares on 02-03-2023 Nucleated RBC Auto Ql (Bld) 0.1 /100{WBC} 0-0.5 [facility] Platelet mean volume Auto (B ld) [Entitic vol]Ordered By: Christin Manzanares on 02-03-2023 Platelet mean volume (Bld) [Entitic vol] 7.1 fL 6.6-10.1 [facility] Platelets Auto (Bld) [#/Vol] Ordered By: Christin Manzanares on 02-03-2023 Platelets (Bld) [#/Vol] 307 10*3/uL 150-450 [facility] Potassium [Moles/volume] in Serum or PlasmaOrdered By: Christin Manzanares on 02-03-2023 Potassium [Moles/Vol] 4.0 mmol/L 3.5-5.1 [facility] Protein Auto test strip (U) [Mass/Vol]Ordered By: Christin Manzanares on 02-03-2023 Protein (U) [Mass/Vol] Negative Negative [facility] RBC Auto (Bld) [#/Vol]Ordere d By: Christin Manzanares on 02-03-2023 RBC (Bld) [#/Vol] 4.40 10*6/uL 3.90-5.60 [facility] Serum or plasma anion gap de terminationOrdered By: Christin Manzanares on 02-03-2023 Anion gap [Moles/Vol] 8.7 mmol/L 6.0-15.0 [facility] Sodium [Moles/volume] in Ser um or PlasmaOrdered By: Christin Manzanares on 02-03-2023 Sodium [Moles/Vol] 138 mmol/L 136-[address] [facility] Specific gravity Auto test s trip (U) [Rel density]Ordered By: Christin Manzanares on 02-03-2023 Specific gravity (U) [Rel density] 1.005 1.001-1.030 [facility] Urea nitrogen [Mass/volume] in Serum or PlasmaOrdered By: Christin Manzanares on 02-03-2023 Urea nitrogen [Mass/Vol] 11 mg/dL 7-25 [facility] Urine bacteria detection by automated methodOrdered By: Christin Manzanares on 02-03-2023 Bacteria Auto Ql (U) 4+ None Seen [facility] Urine clarity by refractomet ry automatedOrdered By: Christin Manzanares on 02-03-2023 Clarity Refractometry automated (U) Clear Clear [facility] Urine culture routineOrdered By: Christin Manzanares on 02-03-2023 Bacteria identified Cx Nom (U) Klebsiella pneumoniae (ESBL) [facility] Urine glucose measurement by automated test strip (mass/volume)Ordered By: Christin Manzanares on 02-03-2023 Glucose Auto test strip (U) [Mass/Vol] Normal mg/dL Normal [facility] Urine hemoglobin detection b y automated test stripOrdered By: Christin Manzanares on 02-03-2023 Hemoglobin Auto test strip Ql (U) 1+ Negative [facility] Urine leukocyte esterase det ection by automated test stripOrdered By: Christin Manzanares on 02-03-2023 Leukocyte esterase Auto test strip Ql (U) 4+ Negative [facility] Urobilinogen Auto test strip (U) [Mass/Vol]Ordered By: Christin Manzanares on 02-03-2023 Urobilinogen (U) [Mass/Vol] Normal mg/dL Normal [facility] WBC Auto (Bld) [#/Vol]Ordere d By: Christin Manzanares on 02-03-2023 WBC (Bld) [#/Vol] 6.1 10*3/uL 4.1-10.[address] [facility] pH Auto test strip (U)Ordere d By: Christin Manzanares on 02-03-2023 pH (U) 6.5 [pH] 5.0-9.0 [facility] Bacteria Ur Culton 3 Bacteria identified Cx Nom (U) Abnormal [facility] Comment on above: Performed By: #### 6 30-4 ####[facility] LABCLIA [id number] [facility] [id number] [place], [place] [address] [place] CNOVon 01-10-2023 CNOV Normal [facility] CNPNon 12-23-2022 CNPN Normal [facility] CNOVon 12-16-2022 CNOV Normal [facility] CNPTOUTREACHon 12-16-2022 CNPTOUTREACH Normal [facility] US KIDNEY/BLADDERon 12-17-19 US KIDNEY/BLADDER [facility] XR ABDOMEN 3V KUB W/OBLIQUES on 12-16-2022 XR ABDOMEN 3V KUB W/OBLIQUES Normal [facility] Amorphous urine sedimentOrde red By: Jun Gaona on 12-07-2022 Amorphous sediment LM Ql (Urine sed) 3+ [LPF] [facility] Automated epithelial cells c ount in urine sediment (number/area)Ordered By: Jun Gaona on 12-07-2022 Epithelial cells Auto (Urine sed) [#/Area] 1-2 [HPF] 0-2 [facility] Automated erythrocytes count in urine sediment (number/area)Ordered By: Jun Gaona on 12-07-2022 RBC Auto (Urine sed) [#/Area] 3-4 [HPF] 0-4 [facility] Automated leukocytes count i n urine sediment (number/area)Ordered By: Jun Gaona on 12-07-2022 WBC Auto (Urine sed) [#/Area] Innumerable [HPF] 0-4 [facility] Automated urine hyaline cast s count (number/volume)Ordered By: Jun Gaona on 12-07-2022 Hyaline casts Auto (U) [#/Vol] None seen [LPF] 0-1 [facility] Automated urine sediment alice cium oxalate crystal count by microscopy (number/high powOrdered By: Jun Gaona on 12-07-2022 Calcium oxalate crystals LM.HPF (Urine sed) [#/Area] 1+ [HPF] [facility] Basophils Auto (Bld) [#/Vol] Ordered By: Jun Gaona on 12-07-2022 Basophils (Bld) [#/Vol] 0.1 10*3/uL 0.0-0.2 [facility] Basophils/100 WBC Auto (Bld) Ordered By: Jun Gaona on 12-07-2022 Basophils/100 WBC (Bld) 1.5 % . [facility] Bilirubin Test strip Ql (U)O rdered By: Jun Gaona on 12-07-2022 Bilirubin Ql (U) Negative Negative [facility] Calcium [Mass/volume] in Ser um or PlasmaOrdered By: Jun Gaona on 12-07-2022 Calcium [Mass/Vol] 9.2 mg/dL 8.6-10.[address] [facility] Carbon dioxide, total [Moles /volume] in Serum or PlasmaOrdered By: Jun Gaona on 12-07-2022 CO2 [Moles/Vol] 27.6 mmol/L 21.0-31.0 [facility] Casts typing in urine sedime nt by light microscopyOrdered By: Jun Gaona on 12-07-2022 Casts LM Nom (Urine sed) None seen [LPF] None Seen [facility] Chloride [Moles/volume] in S jennifer or PlasmaOrdered By: Jun Gaona on 12-07-2022 Chloride [Moles/Vol] 108 mmol/L 98-107 [facility] Color Auto (U)Ordered By: Raheem red Candelaria on 12-07-2022 Color (U) Yellow Yellow [facility] Creatinine [Mass/volume] in Serum or PlasmaOrdered By: Jun Gaona on 12-07-2022 Creatinine [Mass/Vol] 0.70 mg/dL 0.70-1.30 [facility] Eosinophils Auto (Bld) [#/Vo l]Ordered By: Jun Gaona on 12-07-2022 Eosinophils (Bld) [#/Vol] 0.3 10*3/uL 0.0-0.45 [facility] Eosinophils/100 WBC Auto (Bl d)Ordered By: Jun Gaona on 12-07-2022 Eosinophils/100 WBC (Bld) 7.5 % . [facility] Erythrocyte distribution wid th Auto (RBC) [Ratio]Ordered By: Jun Gaona on 12-07-2022 Erythrocyte distribution width (RBC) [Ratio] 14.8 % 12.0-14.8 [facility] Glucose [Mass/volume] in Ser um or PlasmaOrdered By: Jun Gaona on 12-07-2022 Glucose [Mass/Vol] 79 mg/dL 70-[address] [facility] Comment on above: ADA recommended refe rence rangeRandom Glucose Reference Range is dependent on time and content of last meal. Glucose of more than 200 mg/dL in a nonstressed, ambulatory subject supports the diagnosis of Diabetes Mellitus. Hematocrit Auto (Bld) [Volum e fraction]Ordered By: Jun Gaona on 12-07-2022 Hematocrit (Bld) [Volume fraction] 36.9 % 38.8-50.0 [facility] Hemoglobin [Mass/volume] in BloodOrdered By: Jun Gaona on 12-07-2022 Hemoglobin (Bld) [Mass/Vol] 12.1 g/dL 13.0-17.0 [facility] Ketones Auto test strip (U) [Mass/Vol]Ordered By: Jnu Gaona on 12-07-2022 Ketones (U) [Mass/Vol] Negative Negative [facility] Leukocytes [#/volume] correc mayte for nucleated erythrocytes in Blood by Automated counOrdered By: Jun Gaona on 12-07-2022 WBC corrected for nucl RBC Auto (Bld) [#/Vol] 4.1 10*3/uL 4.1-10.5 [facility] Lymphocytes Auto (Bld) [#/Vo l]Ordered By: Jun Gaona on 12-07-2022 Lymphocytes (Bld) [#/Vol] 1.5 10*3/uL 1.00-4.8 [facility] Lymphocytes/100 WBC Auto (Bl d)Ordered By: Jun Gaona on 12-07-2022 Lymphocytes/100 WBC (Bld) 37.3 % . [facility] MCH Auto (RBC) [Entitic mass ]Ordered By: Jun Gaona on 12-07-2022 MCH (RBC) [Entitic mass] 27.1 pg 27.5-35.2 [facility] MCHC Auto (RBC) [Mass/Vol]Or dered By: Jun Gaona on 12-07-2022 MCHC (RBC) [Mass/Vol] 32.8 g/dL 32.5-35.6 [facility] MCV Auto (RBC) [Entitic vol] Ordered By: Jun Gaona on 12-07-2022 MCV (RBC) [Entitic vol] 82.8 fL 83.5-101 [facility] Monocyte distribution width [Entitic volume] in Blood by AutomatedOrdered By: Jun Gaona on 12-07-2022 Monocyte distribution width Auto (Bld) [Entitic vol] 18.59 % 0.00-20.00 [facility] Monocytes Auto (Bld) [#/Vol] Ordered By: Jun Gaona on 12-07-2022 Monocytes (Bld) [#/Vol] 0.3 10*3/uL 0.0-0.8 [facility] Monocytes/100 WBC Auto (Bld) Ordered By: Jun Gaona on 12-07-2022 Monocytes/100 WBC (Bld) 6.9 % . [facility] Neutrophils Auto (Bld) [#/Vo l]Ordered By: Jun Gaona on 12-07-2022 Neutrophils (Bld) [#/Vol] 1.9 10*3/uL 1.8-7.7 [facility] Neutrophils/100 WBC Auto (Bl d)Ordered By: Jun Gaona on 12-07-2022 Neutrophils/100 WBC (Bld) 46.8 % . [facility] Nitrite Test strip Ql (U)Ord ered By: Jun Gaona on 12-07-2022 Nitrite Ql (U) Positive Negative [facility] No Panel InformationOrdered By: Jun Gaona on 12-07-2022 Estimated GFR (CKD-EPI) > 60.0 mL/Min [facility] Creatinine Clearance (Chem 89.68 [facility] Nucleated erythrocytes [Pres ence] in Blood by Automated countOrdered By: Jun Gaona on 12-07-2022 Nucleated RBC Auto Ql (Bld) 0.2 /100{WBC} 0-0.5 [facility] Platelet mean volume Auto (B ld) [Entitic vol]Ordered By: Jun Gaona on 12-07-2022 Platelet mean volume (Bld) [Entitic vol] 8.1 fL 6.6-10.1 [facility] Platelets Auto (Bld) [#/Vol] Ordered By: Jun Gaona on 12-07-2022 Platelets (Bld) [#/Vol] 204 10*3/uL 150-450 [facility] Potassium [Moles/volume] in Serum or PlasmaOrdered By: Jun Gaona on 12-07-2022 Potassium [Moles/Vol] 4.0 mmol/L 3.5-5.1 [facility] Protein Auto test strip (U) [Mass/Vol]Ordered By: Jun Gaona on 12-07-2022 Protein (U) [Mass/Vol] Trace mg/dL Negative [facility] RBC Auto (Bld) [#/Vol]Ordere d By: Jun Gaona on 12-07-2022 RBC (Bld) [#/Vol] 4.46 10*6/uL 3.90-5.60 [facility] Serum or plasma anion gap de terminationOrdered By: Jun Gaona on 12-07-2022 Anion gap [Moles/Vol] 8.4 mmol/L 6.0-15.0 [facility] Sodium [Moles/volume] in Ser um or PlasmaOrdered By: Jun Gaona on 12-07-2022 Sodium [Moles/Vol] 140 mmol/L 136-[address] [facility] Specific gravity Auto test s trip (U) [Rel density]Ordered By: Jun Gaona on 12-07-2022 Specific gravity (U) [Rel density] 1.005 1.001-1.030 [facility] Urea nitrogen [Mass/volume] in Serum or PlasmaOrdered By: Jun Gaona on 12-07-2022 Urea nitrogen [Mass/Vol] 14 mg/dL 7-25 [facility] Urine bacteria detection by automated methodOrdered By: Jun Gaona on 12-07-2022 Bacteria Auto Ql (U) 3+ None Seen [facility] Urine clarity by refractomet ry automatedOrdered By: Jun Gaona on 12-07-2022 Clarity Refractometry automated (U) Turbid Clear [facility] Urine culture routineOrdered By: Jun Gaona on 12-07-2022 Bacteria identified Cx Nom (U) Klebsiella pneumoniae (ESBL) [facility] Bacteria identified Cx Nom (U) Enterococcus faecalis [facility] Bacteria identified Cx Nom (U) Klebsiella pneumoniae (ESBL) [facility] Bacteria identified Cx Nom (U) Enterococcus faecalis [facility] Urine glucose measurement by automated test strip (mass/volume)Ordered By: Jun Gaona on 12-07-2022 Glucose Auto test strip (U) [Mass/Vol] Normal mg/dL Normal [facility] Urine hemoglobin detection b y automated test stripOrdered By: Jun Gaona on 12-07-2022 Hemoglobin Auto test strip Ql (U) 2+ Negative [facility] Urine leukocyte esterase det ection by automated test stripOrdered By: Jun Gaona on 12-07-2022 Leukocyte esterase Auto test strip Ql (U) 4+ Negative [facility] Urobilinogen Auto test strip (U) [Mass/Vol]Ordered By: Jun Gaona on 12-07-2022 Urobilinogen (U) [Mass/Vol] Normal mg/dL Normal [facility] WBC Auto (Bld) [#/Vol]Ordere d By: Jun Gaona on 12-07-2022 WBC (Bld) [#/Vol] 4.1 10*3/uL 4.1-10.[address] [facility] pH Auto test strip (U)Ordere d By: Jun Gaona on 12-07-2022 pH (U) 7.5 [pH] 5.0-9.0 [facility] Bacteria Ur Culton 3 Bacteria identified Cx Nom (U) Abnormal [facility] Comment on above: Performed By: #### 6 30-4 ####[facility] LABCLIA [id number] [facility] [id number] [place] [address] [place] CNOVon 11-25-2022 CNOV Normal [facility] Urinalysis complete panel (U )on 11-25-2022 Bacteria LM.HPF (Urine sed) [#/Area] Moderate Abnormal None Seen [facility] Comment on above: Order Comment: Speci men Type: URINE SPECIMENOrdering Facility: [facility] Address: [address] Performed By: #### 2 4356-8 ####[facility] LABCLIA [id number] [place] [address] [place] Bilirubin Ql (U) Negative Normal Negative [facility] Comment on above: Order Comment: Speci men Type: URINE SPECIMENOrdering Facility: [facility] Address: [address] [address] Performed By: #### 2 4356-8 ####[facility] LABCLIA [id number] [place] [address] [place] CALCIUM OXALATE CRYSTALS (UA) Few Abnormal None Seen [facility] Comment on above: Order Comment: Speci men Type: URINE SPECIMENOrdering Facility: [facility] Address: [address] Performed By: #### 2 4356-8 ####[facility] LABCLIA [id number] [place] [address] [place] Clarity (Unsp spec) Cloudy Abnormal Clear [facility] Comment on above: Order Comment: Speci men Type: URINE SPECIMENOrdering Facility: [facility] Address: [address] Performed By: #### 2 4356-8 ####[facility] LABCLIA [id number] [place] [address] [place] Color (U) Red Abnormal Yellow [facility] Comment on above: Order Comment: Speci men Type: URINE SPECIMENOrdering Facility: [facility] Address: [address] Performed By: #### 2 4356-8 ####[facility] LABCLIA [id number] [address] [place] Glucose Test strip (U) [Mass/Vol] Negative Normal Trace, Negative [facility] Comment on above: Order Comment: Speci men Type: URINE SPECIMENOrdering Facility: [facility] Address: [address] [address] Performed By: #### 2 4356-8 ####[facility] LABCLIA [id number] [place] [address] [place] Hemoglobin Ql (U) 3+ Abnormal Negative, Trace [facility] Comment on above: Order Comment: Speci men Type: URINE SPECIMENOrdering Facility: [facility] Address: [address] [place] [address] Performed By: #### 2 4356-8 ####[facility] LABCLIA [id number] [address] [place] Ketones Ql (U) Negative Normal Negative, Trace [facility] Comment on above: Order Comment: Speci men Type: URINE SPECIMENOrdering Facility: [facility] Address: [address] [place] [address] Performed By: #### 2 4356-8 ####[facility] LABCLIA [id number] [place] [address] [place] Leukocyte esterase Test strip Ql (U) 500 Arnulfo/uL Abnormal Negative, 25 Arnulfo/uL [facility] Comment on above: Order Comment: Speci men Type: URINE SPECIMENOrdering Facility: [facility] Address: [address] Performed By: #### 2 4356-8 ####[facility] LABCLIA [id number] [place] [address] [place] Nitrite Ql (U) 1+ Abnormal Negative [facility] Comment on above: Order Comment: Speci men Type: URINE SPECIMENOrdering Facility: [facility] Address: [address] [address] Performed By: #### 2 4356-8 ####[facility] LABIA [id number] [address] [place] pH (U) 7.0 [pH] Normal 5.0-8.0 [facility] Comment on above: Order Comment: Speci men Type: URINE SPECIMENOrdering Facility: [facility] Address: [address] [place], [place] [address] Performed By: #### 2 4356-8 ####[facility] LABIA [id number] [place] [address] [place] Protein (U) [Mass/Vol] 3+ Abnormal Trace , Negative [facility] Comment on above: Order Comment: Speci men Type: URINE SPECIMENOrdering Facility: [facility] Address: [address] [place] [address] Performed By: #### 2 4356-8 ####[facility] LABIA [id number] [place] [address] [place] RBC LM.HPF (Urine sed) [#/Area] /[HPF] Abnormal 0-3 /HPF [facility] Comment on above: Order Comment: Speci men Type: URINE SPECIMENOrdering Facility: [facility] Address: [address] [place], [place] [address] Performed By: #### 2 4356-8 ####[facility] LABIA [id number] [address] [place] Specific gravity (U) [Rel density] 1.008 Normal 1.005-1.030 [facility] Comment on above: Order Comment: Speci men Type: URINE SPECIMENOrdering Facility: [facility] Address: [address] [place], [place] [address] Performed By: #### 2 4356-8 ####[facility] LABIA [id number] [address] [place] Urobilinogen Ql (U) Negative Normal Negative [facility] Comment on above: Order Comment: Speci men Type: URINE SPECIMENOrdering Facility: [facility] Address: [address] [address] Performed By: #### 2 4356-8 ####[facility] LABCLIA [id number] [place] [address] [place] WBC LM.HPF (Urine sed) [#/Area] /[HPF] Abnormal 0-5 /HPF [facility] Comment on above: Order Comment: Speci men Type: URINE SPECIMENOrdering Facility: [facility] Address: [address] [address] Performed By: #### 2 4356-8 ####[facility] LABCLIA [id number] [place] [address] [place] CNPNon 11-12-2022 CNPN Normal [facility] CNOVon 10-27-2022 CNOV Normal [facility] XR ABDOMEN 1V SUPINEon 10-27 XR ABDOMEN 1V SUPINE Normal [facility] CNPNon 10-20-2022 CNPN Normal [facility] CNPNon 10-19-2022 CNPN Normal [facility] CASE MANAGEMon 10-14-2022 CASE MANAGEM Normal [facility] [facility] CASE MANAGEM Normal [facility] CNDSon 10-14-2022 CNDS Normal [facility] CONSULTon 10-14-2022 CONSULT Normal [facility] NURSING PROGon 10-14-2022 NURSING PROG Normal [facility] BRIEF OP NOTon 10-13-2022 BRIEF OP NOT Normal [facility] Basic metabolic 2000 panelon 10-13-2022 Anion gap [Moles/Vol] 10 mmol/L Normal - [facility] Comment on above: Order Comment: Speci men Type: BLOOD SPECIMENOrdering Facility: [facility] Address: [address] [address] Performed By: #### 2 4321-2 ####[facility] LABCLIA [id number] [place] [address] [place] Calcium [Mass/Vol] 8.8 mg/dL Normal 8.5-10.2 [facility] Comment on above: Order Comment: Speci men Type: BLOOD SPECIMENOrdering Facility: [facility] Address: [address] [place] [address] Performed By: #### 2 4321-2 ####[facility] LABCLIA [id number] [place] [address] [place] Chloride [Moles/Vol] 108 mmol/L High 97-105 [facility] Comment on above: Order Comment: Speci men Type: BLOOD SPECIMENOrdering Facility: [facility] Address: [address] [place] [address] Performed By: #### 2 4321-2 ####[facility] LABCLIA [id number] [place] [address] [place] CO2 [Moles/Vol] 26 mmol/L Normal 22-30 [facility] Comment on above: Order Comment: Speci men Type: BLOOD SPECIMENOrdering Facility: [facility] Address: [address] [place] [address] Performed By: #### 2 4321-2 ####[facility] LABCLIA [id number] [place] [address] [place] Creatinine [Mass/Vol] 0.94 mg/dL Normal 0.73-1.22 [facility] Comment on above: Order Comment: Speci men Type: BLOOD SPECIMENOrdering Facility: [facility] Address: [address] [place] [address] Performed By: #### 2 4321-2 ####[facility] LABCLIA [id number] [place] [address] [place] ESTIMATED GLOMERULAR FILTRATION RATE 89 mL/min/1.73m??? Normal >=60 [facility] Comment on above: Order Comment: Speci men Type: BLOOD SPECIMENOrdering Facility: [facility] Address: [address] [address] Result Comment: Ignacia mated Glomerular Filtration Rate [...] actual GFR. Performed By: #### 2 4321-2 ####[facility] LABIA [id number] [place] [address] [place] Glucose [Mass/Vol] 88 mg/dL Normal 74-99 [facility] Comment on above: Order Comment: Cierra cartwright Type: BLOOD SPECIMENOrdering Facility: [facility] Address: [address] [address] Result Comment: The [place] Diabetes [employer] (ADA) provides guidance for cutoff [...] Standards of Medical Care in Diabetes 2016, [place] [employer]. Diabetes Care. 2016.39(Suppl 1). Performed By: #### 2 4321-2 ####[facility] LABIA [id number] [place] [address] [place] Potassium [Moles/Vol] 3.8 mmol/L Normal 3.7-5.1 [facility] Comment on above: Order Comment: Cierra cartwright Type: BLOOD SPECIMENOrdering Facility: [facility] Address: [address] [address] Performed By: #### 2 4321-2 ####[facility] LABCLIA [id number] [place] [address] [place] Sodium [Moles/Vol] 144 mmol/L Normal 136-144 [facility] Comment on above: Order Comment: Speci men Type: BLOOD SPECIMENOrdering Facility: [facility] Address: [address] [place] [address] Performed By: #### 2 4321-2 ####[facility] LABIA [id number] [place] [address] [place] Urea nitrogen [Mass/Vol] 9 mg/dL Normal 9-24 [facility] Comment on above: Order Comment: Speci men Type: BLOOD SPECIMENOrdering Facility: [facility] Address: [address] [place] [address] Performed By: #### 2 4321-2 ####[facility] LABIA [id number] [place] [address] [place] CASE MGT INIT ASSESon 2022 CASE MGT INIT ASSES Normal [facility] CBC panel Auto (Bld)on 10-13 Erythrocyte distribution width (RBC) [Ratio] 14.1 % Normal 11.5-15.0 [facility] Comment on above: Order Comment: Speci men Type: BLOOD SPECIMENOrdering Facility: [facility] Address: [address] [place], [place] [address] Performed By: #### 5 8410-2 ####[facility] LABIA [id number] [place] [address] [place] Hematocrit (Bld) [Volume fraction] 27.1 % Low 39.0-51.0 [facility] Comment on above: Order Comment: Speci men Type: BLOOD SPECIMENOrdering Facility: [facility] Address: [address] [place], [place] [address] Performed By: #### 5 8410-2 ####[facility] LABIA [id number] [place] [address] [place] Hemoglobin (Bld) [Mass/Vol] 8.8 g/dL Low 13.0-17.0 [facility] Comment on above: Order Comment: Speci men Type: BLOOD SPECIMENOrdering Facility: [facility] Address: [address] [place] [address] Performed By: #### 5 8410-2 ####[facility] LABIA [id number] [place] [address] [place] MCH (RBC) [Entitic mass] 27.7 pg Normal 26.0-34.0 [facility] Comment on above: Order Comment: Speci men Type: BLOOD SPECIMENOrdering Facility: [facility] Address: [address] [place] [address] Performed By: #### 5 8410-2 ####[facility] [id number] [address] STATES OF [facility] MCHC (RBC) [Mass/Vol] 32.5 g/dL Normal 30.5-36.0 [facility] Comment on above: Order Comment: Speci men Type: BLOOD SPECIMENOrdering Facility: [facility] Address: [address] [place] [address] Performed By: #### 5 8410-2 ####[facility]BR[facility] [id number] [address] [place] MCV (RBC) [Entitic vol] 85.2 fL Normal 80.0-100.0 [facility] Comment on above: Order Comment: Speci men Type: BLOOD SPECIMENOrdering Facility: [facility] Address: [address] [place] [address] Performed By: #### 5 8410-2 ####[facility] [id number] [place] [address] [place] Nucleated RBC (Bld) [#/Vol] 10*3/uL Normal <0.01 [facility] Comment on above: Order Comment: Speci men Type: BLOOD SPECIMENOrdering Facility: [facility] Address: [address] [place], [place] [address] Performed By: #### 5 8410-2 ####[facility] LABCLIA [id number] [place] [address] [place] Platelet mean volume (Bld) [Entitic vol] 10.0 fL Normal 9.0-12.7 [facility] Comment on above: Order Comment: Speci men Type: BLOOD SPECIMENOrdering Facility: [facility] Address: [address] [place], [place] [address] Performed By: #### 5 8410-2 ####[facility] LABCLIA [id number] [place] [address] [place] Platelets (Bld) [#/Vol] 186 10*3/uL Normal 150-400 [facility] Comment on above: Order Comment: Speci men Type: BLOOD SPECIMENOrdering Facility: [facility] Address: [address] [place], [place] [address] Performed By: #### 5 8410-2 ####[facility] LABCLIA [id number] [place] [address] [place] RBC (Bld) [#/Vol] 3.18 10*6/uL Low 4.20-6.00 [facility] Comment on above: Order Comment: Speci men Type: BLOOD SPECIMENOrdering Facility: [facility] Address: [address] [place], [place] [address] Performed By: #### 5 8410-2 ####[facility] LABCLIA [id number] [place] [address] [place] WBC (Bld) [#/Vol] 4.95 10*3/uL Normal 3.70-11.00 [facility] Comment on above: Order Comment: Speci men Type: BLOOD SPECIMENOrdering Facility: [facility] Address: [address] [address] Performed By: #### 5 8410-2 ####[facility] LABCLIA [id number] [place] [address] [place] CONSULT PROGon 10-13-2022 CONSULT PROG Normal [facility] IR LINE REMOVAL CONSULTon IR LINE REMOVAL CONSULT Normal [facility] THERAPY NTon 10-13-2022 THERAPY NT Normal [facility] THERAPY NT Normal [facility] Basic metabolic 2000 panelon 10-12-2022 Anion gap [Moles/Vol] 7 mmol/L Low - [facility] Comment on above: Order Comment: Speci men Type: BLOOD SPECIMENOrdering Facility: [facility] Address: [address] [place] [address] Performed By: #### 2 4321-2 ####[facility] LABCLIA [id number] [place] [address] [place] Calcium [Mass/Vol] 8.7 mg/dL Normal 8.5-10.2 [facility] Comment on above: Order Comment: Speci men Type: BLOOD SPECIMENOrdering Facility: [facility] Address: [address] [address] Performed By: #### 2 4321-2 ####[facility] LABCLIA [id number] [place] [address] [place] Chloride [Moles/Vol] 102 mmol/L Normal 97-105 [facility] Comment on above: Order Comment: Speci men Type: BLOOD SPECIMENOrdering Facility: [facility] Address: [address] Performed By: #### 2 4321-2 ####[facility] LABCLIA [id number] [place] [address] [place] CO2 [Moles/Vol] 25 mmol/L Normal 22-30 [facility] Comment on above: Order Comment: Speci men Type: BLOOD SPECIMENOrdering Facility: [facility] Address: [address] [address] Performed By: #### 2 4321-2 ####[facility] LABCLIA [id number] [place] [address] [place] Creatinine [Mass/Vol] 0.86 mg/dL Normal 0.73-1.22 [facility] Comment on above: Order Comment: Speci men Type: BLOOD SPECIMENOrdering Facility: [facility] Address: [address] [address] Performed By: #### 2 4321-2 ####[facility] LABIA [id number] [place] [address] [place] ESTIMATED GLOMERULAR FILTRATION RATE 95 mL/min/1.73m??? Normal >=60 [facility] Comment on above: Order Comment: Speci men Type: BLOOD SPECIMENOrdering Facility: [facility] Address: [address] [place] [address] Result Comment: Ignacia mated Glomerular Filtration Rate [...] actual GFR. Performed By: #### 2 4321-2 ####[facility] LABIA [id number] [place] [address] [place] Glucose [Mass/Vol] 136 mg/dL High 74-99 [facility] Comment on above: Order Comment: Speci men Type: BLOOD SPECIMENOrdering Facility: [facility] Address: [address] [place] [address] Result Comment: The [place] Diabetes [employer] (ADA) provides guidance for cutoff [...] Standards of Medical Care in Diabetes 2016, [place] [employer]. Diabetes Care. 2016.39(Suppl 1). Performed By: #### 2 4321-2 ####[facility] LABCLIA [id number] [place] [address] [place] Potassium [Moles/Vol] 4.3 mmol/L Normal 3.7-5.1 [facility] Comment on above: Order Comment: Speci men Type: BLOOD SPECIMENOrdering Facility: [facility] Address: [address] [address] Performed By: #### 2 4321-2 ####[facility] LABIA [id number] [place] [address] [place] [facility] Sodium [Moles/Vol] 134 mmol/L Low 136-144 [facility] Comment on above: Order Comment: Speci men Type: BLOOD SPECIMENOrdering Facility: [facility] Address: [address] [address] Performed By: #### 2 4321-2 ####[facility] LABIA [id number] [place] [address] [place] Urea nitrogen [Mass/Vol] 12 mg/dL Normal 9-24 [facility] Comment on above: Order Comment: Speci men Type: BLOOD SPECIMENOrdering Facility: [facility] Address: [address] [address] Performed By: #### 2 4321-2 ####[facility] LABIA [id number] [address] OF [facility] CBC panel Auto (Bld)on 10-12 Erythrocyte distribution width (RBC) [Ratio] 13.7 % Normal 11.5-15.0 [facility] Comment on above: Order Comment: Speci men Type: BLOOD SPECIMENOrdering Facility: [facility] Address: [address] [place] [address] Performed By: #### 5 8410-2 ####[facility] LABIA [id number] [address] Hematocrit (Bld) [Volume fraction] 30.7 % Low 39.0-51.0 [facility] Comment on above: Order Comment: Speci men Type: BLOOD SPECIMENOrdering Facility: [facility] Address: [address] [place] [address] Performed By: #### 5 8410-2 ####[facility] LABIA [id number] [address] Hemoglobin (Bld) [Mass/Vol] 9.8 g/dL Low 13.0-17.0 [facility] Comment on above: Order Comment: Speci men Type: BLOOD SPECIMENOrdering Facility: [facility] Address: [address] [place] [address] Performed By: #### 5 8410-2 ####[facility] LABIA [id number] [address] [place] MCH (RBC) [Entitic mass] 27.3 pg Normal 26.0-34.0 [facility] Comment on above: Order Comment: Speci men Type: BLOOD SPECIMENOrdering Facility: [facility] Address: [address] [place] [address] Performed By: #### 5 8410-2 ####[facility] LABIA [id number] [address] [place] MCHC (RBC) [Mass/Vol] 31.9 g/dL Normal 30.5-36.0 [facility] Comment on above: Order Comment: Speci men Type: BLOOD SPECIMENOrdering Facility: [facility] Address: [address] Performed By: #### 5 8410-2 ####[facility] LABIA [id number] [address] [place] MCV (RBC) [Entitic vol] 85.5 fL Normal 80.0-100.0 [facility] Comment on above: Order Comment: Speci men Type: BLOOD SPECIMENOrdering Facility: [facility] Address: [address] Performed By: #### 5 8410-2 ####[facility]BR[facility] [id number] [place] [address] [place] Nucleated RBC (Bld) [#/Vol] 10*3/uL Normal <0.01 [facility] Comment on above: Order Comment: Speci men Type: BLOOD SPECIMENOrdering Facility: [facility] Address: [address] [place], [place] [address] Performed By: #### 5 8410-2 ####[facility] [id number] [address] [place] Platelet mean volume (Bld) [Entitic vol] 10.3 fL Normal 9.0-12.7 [facility] Comment on above: Order Comment: Speci men Type: BLOOD SPECIMENOrdering Facility: [facility] Address: [address] Performed By: #### 5 8410-2 ####[facility] LABIA [id number] [place] [address] [place] Platelets (Bld) [#/Vol] 218 10*3/uL Normal 150-400 [facility] Comment on above: Order Comment: Speci men Type: BLOOD SPECIMENOrdering Facility: [facility] Address: [address] [place] [address] Performed By: #### 5 8410-2 ####[facility] LABCLIA [id number] [place] [address] [place] RBC (Bld) [#/Vol] 3.59 10*6/uL Low 4.20-6.00 [facility] Comment on above: Order Comment: Speci men Type: BLOOD SPECIMENOrdering Facility: [facility] Address: [address] [id number] Performed By: #### 5 8410-2 ####[facility] LABIA [id number] [address] [place] WBC (Bld) [#/Vol] 11.23 10*3/uL High 3.70-11.00 [facility] Comment on above: Order Comment: Speci men Type: BLOOD SPECIMENOrdering Facility: [facility] Address: [address] [place], [place] [address] Performed By: #### 5 8410-2 ####[facility] LABIA [id number] [place] [address] [place] CONSULT PROGon 10-12-2022 CONSULT PROG Normal [facility] NURSING PROGon 10-12-2022 NURSING PROG Normal [facility] ANES POSTPROC EVALon 023 ANES POSTPROC EVAL Normal [facility] ANES PRE-OPon 10-11-2022 ANES PRE-OP Normal [facility] BRIEF OP NOTon 10-11-2022 BRIEF OP NOT Normal [facility] Bacteria Ur Culton Bacteria identified Cx Nom (U) CULTURE, URINE: No growth (<100 CFU/ml) Normal [facility] Comment on above: Performed By: #### 6 30-4 ####[facility] LABCLIA [id number] [place] [address] [place] Basic metabolic 2000 panelon 10-11-2022 Anion gap [Moles/Vol] 9 mmol/L Normal 9-18 [facility] Comment on above: Order Comment: Speci men Type: BLOOD SPECIMENOrdering Facility: [facility] Address: [address] [address] Performed By: #### 2 4321-2 ####[facility] LABCLIA [id number] [place] [address] [place] Calcium [Mass/Vol] 9.0 mg/dL Normal 8.5-10.2 [facility] Comment on above: Order Comment: Speci men Type: BLOOD SPECIMENOrdering Facility: [facility] Address: [address] [place] [address] Performed By: #### 2 4321-2 ####[facility] LABCLIA [id number] [place] [address] [place] Chloride [Moles/Vol] 106 mmol/L High 97-105 [facility] Comment on above: Order Comment: Speci men Type: BLOOD SPECIMENOrdering Facility: [facility] Address: [address] [place] [address] Performed By: #### 2 4321-2 ####[facility] LABCLIA [id number] [place] [address] [place] CO2 [Moles/Vol] 24 mmol/L Normal 22-30 [facility] Comment on above: Order Comment: Speci men Type: BLOOD SPECIMENOrdering Facility: [facility] Address: [address] Performed By: #### 2 4321-2 ####[facility] LABCLIA [id number] [place] [address] [place] Creatinine [Mass/Vol] 0.88 mg/dL Normal 0.73-1.22 [facility] Comment on above: Order Comment: Speci men Type: BLOOD SPECIMENOrdering Facility: [facility] Address: [address] [address] Performed By: #### 2 4321-2 ####[facility] LABCLIA [id number] [address] OF [facility] ESTIMATED GLOMERULAR FILTRATION RATE 94 mL/min/1.73m??? Normal >=60 [facility] Comment on above: Order Comment: Cierra cartwright Type: BLOOD SPECIMENOrdering Facility: [facility] Address: [address] [address] Result Comment: Ignacia mated Glomerular Filtration Rate [...] actual GFR. Performed By: #### 2 4321-2 ####[facility] LABIA [id number] [address] [place] Glucose [Mass/Vol] 101 mg/dL High 74-99 [facility] Comment on above: Order Comment: Cirera cartwright Type: BLOOD SPECIMENOrdering Facility: [facility] Address: [address] [place] [address] Result Comment: The [place] [employer] (ADA) provides guidance for cutoff [...] Standards of Medical Care in Diabetes 2016, [place] [employer]. Diabetes Care. 2016.39(Suppl 1). Performed By: #### 2 4321-2 ####[facility] LABCLIA [id number] [place] [address] [place] Potassium [Moles/Vol] 4.1 mmol/L Normal 3.7-5.1 [facility] Comment on above: Order Comment: Speci men Type: BLOOD SPECIMENOrdering Facility: [facility] Address: [address] [place] [address] Performed By: #### 2 4321-2 ####[facility] LABCLIA [id number] [place] [address] [place] Sodium [Moles/Vol] 139 mmol/L Normal 136-144 [facility] Comment on above: Order Comment: Speci men Type: BLOOD SPECIMENOrdering Facility: [facility] Address: [address] [place] [address] Performed By: #### 2 4321-2 ####[facility] LABCLIA [id number] [place] [address] [place] Urea nitrogen [Mass/Vol] 8 mg/dL Low 9-24 [facility] Comment on above: Order Comment: Speci men Type: BLOOD SPECIMENOrdering Facility: [facility] Address: [address] [place] [address] Performed By: #### 2 4321-2 ####[facility] LABCLIA [id number] [place] [address] [place] Anion gap [Moles/Vol] 7 mmol/L Low 9-18 [facility] Comment on above: Order Comment: Speci men Type: BLOOD SPECIMENOrdering Facility: [facility] Address: [address] [place] [address] Performed By: #### 2 4321-2 ####[facility] LABCLIA [id number] [place] [address] [place] Calcium [Mass/Vol] 9.0 mg/dL Normal 8.5-10.2 [facility] Comment on above: Order Comment: Speci men Type: BLOOD SPECIMENOrdering Facility: [facility] Address: [address] [address] Performed By: #### 2 4321-2 ####[facility] LABCLIA [id number] [place] [address] [place] Chloride [Moles/Vol] 107 mmol/L High 97-105 [facility] Comment on above: Order Comment: Speci men Type: BLOOD SPECIMENOrdering Facility: [facility] Address: [address] [address] Performed By: #### 2 4321-2 ####[facility] LABCLIA [id number] [place] [address] [place] CO2 [Moles/Vol] 25 mmol/L Normal 22-30 [facility] Comment on above: Order Comment: Speci men Type: BLOOD SPECIMENOrdering Facility: [facility] Address: [address] [place] [address] Performed By: #### 2 4321-2 ####[facility] LABIA [id number] [place] [address] [place] Creatinine [Mass/Vol] 0.82 mg/dL Normal 0.73-1.22 [facility] Comment on above: Order Comment: Speci men Type: BLOOD SPECIMENOrdering Facility: [facility] Address: [address] [place] [address] Performed By: #### 2 4321-2 ####[facility] LABCLIA [id number] [place] [address] [place] ESTIMATED GLOMERULAR FILTRATION RATE 96 mL/min/1.73m??? Normal >=60 [facility] Comment on above: Order Comment: Speci men Type: BLOOD SPECIMENOrdering Facility: [facility] Address: [address] [place] [address] Result Comment: Ignacia mated Glomerular Filtration Rate [...] actual GFR. Performed By: #### 2 4321-2 ####[facility] LABCLIA [id number] [place] [address] [place] Glucose [Mass/Vol] 85 mg/dL Normal 74-99 [facility] Comment on above: Order Comment: Speccarter cartwright Type: BLOOD SPECIMENOrdering Facility: [facility] Address: [address] [id number] Result Comment: The [place] Diabetes Association (ADA) provides guidance for cutoff [...] Standards of Medical Care in Diabetes 2016, [place] [employer]. Diabetes Care. 2016.39(Suppl 1). Performed By: #### 2 4321-2 ####[facility] LABCLIA [id number] [place] [address] [place] Potassium [Moles/Vol] 3.7 mmol/L Normal 3.7-5.1 [facility] Comment on above: Order Comment: Speccarter men Type: BLOOD SPECIMENOrdering Facility: [facility] Address: [address] [place] [address] Performed By: #### 2 4321-2 ####[facility] LABCLIA [id number] [address] [address] [place] Sodium [Moles/Vol] 139 mmol/L Normal 136-144 [facility] Comment on above: Order Comment: Speci men Type: BLOOD SPECIMENOrdering Facility: [facility] Address: [address] [address] Performed By: #### 2 4321-2 ####[facility] LABCLIA [id number] [place] [address] [place] Urea nitrogen [Mass/Vol] 8 mg/dL Low 9-24 [facility] Comment on above: Order Comment: Speci men Type: BLOOD SPECIMENOrdering Facility: [facility] Address: [address] [address] Performed By: #### 2 4321-2 ####[facility]IA [id number] [address] [place] CALCULI ANALYSISon 3 Calculus analysis [Interp] Normal [facility] Comment on above: Order Comment: Speci men Type: CALCULUS SPECIMENOrdering Facility: [facility] Address: [address] [place] [address] Result Comment: This test was developed and its performance characteristics determined by [facility]'s [facility] Pathology and Laboratory Medicine [place] (-PLMI). It has not been cleared or approved by the FDA. -PLPR is regulated under CLIA as qualified to perform high-complexity testing. This test is used for clinical purposes. It should not be regarded as investigational or for research. Performed By: #### C SA ####[facility] LABCLIA [id number] [address] [place] CALCULUS COLOR WHITE Normal [facility] Comment on above: Order Comment: Speci men Type: CALCULUS SPECIMENOrdering Facility: [facility] Address: [address] [place] [address] Performed By: #### C SA ####[facility] LABCLIA [id number] [address] [place] CALCULUS COMPOSITION 1 100% Calcium Phosphate Normal [facility] Comment on above: Order Comment: Speci men Type: CALCULUS SPECIMENOrdering Facility: [facility] Address: [address] [place] [address] Performed By: #### C SA ####[facility] [id number] [address] [place] CALCULUS SIZE AND WT Multiple pieces. 0.1902 GRAMS Normal [facility] Comment on above: Order Comment: Speci men Type: CALCULUS SPECIMENOrdering Facility: [facility] Address: [address] [place] [address] Performed By: #### C SA ####[facility] [id number] [place] [address] [place] CALCULUS TYPE CALCULI/CALCULUS Normal [facility] Comment on above: Order Comment: Speci men Type: CALCULUS SPECIMENOrdering Facility: [facility] Address: [address] [place] [address] Performed By: #### C SA ####[facility] [id number] [place] [address] [place] CBC W Auto Differential pane l (Bld)on 10-11-2022 Basophils (Bld) [#/Vol] 0.03 10*3/uL Normal <0.11 [facility] Comment on above: Order Comment: Speci men Type: BLOOD SPECIMENOrdering Facility: [facility] Address: [address] [place] [address] Performed By: #### 5 7021-8 ####[facility] [id number] [address] [place] Basophils/100 WBC (Bld) 0.4 % Normal [facility] Comment on above: Order Comment: Speci men Type: BLOOD SPECIMENOrdering Facility: [facility] Address: [address] [place] [address] Performed By: #### 5 7021-8 ####[facility] LABCLIA [id number] [place] [address] [place] Differential cell count method Nom (Bld) Auto Normal [facility] Comment on above: Order Comment: Speci men Type: BLOOD SPECIMENOrdering Facility: [facility] Address: [address] [place] [address] Performed By: #### 5 7021-8 ####[facility] LABCLIA [id number] [place] [address] [place] Eosinophils (Bld) [#/Vol] 0.07 10*3/uL Normal <0.46 [facility] Comment on above: Order Comment: Speci men Type: BLOOD SPECIMENOrdering Facility: [facility] Address: [address] [place] [address] Performed By: #### 5 7021-8 ####[facility] LABCLIA [id number] [place] [address] [place] Eosinophils/100 WBC (Bld) 0.9 % Normal [facility] Comment on above: Order Comment: Speci men Type: BLOOD SPECIMENOrdering Facility: [facility] Address: [address] [place] [address] Performed By: #### 5 7021-8 ####[facility] LABCLIA [id number] [place] [address] [place] Erythrocyte distribution width (RBC) [Ratio] 14.1 % Normal 11.5-15.0 [facility] Comment on above: Order Comment: Speci men Type: BLOOD SPECIMENOrdering Facility: [facility] Address: [address] [place], [place] [address] Performed By: #### 5 7021-8 ####[facility] LABCLIA [id number] [place] [address] [place] Hematocrit (Bld) [Volume fraction] 32.0 % Low 39.0-51.0 [facility] Comment on above: Order Comment: Speci men Type: BLOOD SPECIMENOrdering Facility: [facility] Address: [address] Performed By: #### 5 7021-8 ####[facility] LABCLIA [id number] [place] [address] [place] Hemoglobin (Bld) [Mass/Vol] 10.2 g/dL Low 13.0-17.0 [facility] Comment on above: Order Comment: Speci men Type: BLOOD SPECIMENOrdering Facility: [facility] Address: [address] [place], [place] [address] Performed By: #### 5 7021-8 ####[facility] LABCLIA [id number] [place] [address] [place] Immature granulocytes (Bld) [#/Vol] 0.05 10*3/uL Normal <0.10 [facility] Comment on above: Order Comment: Speci men Type: BLOOD SPECIMENOrdering Facility: [facility] Address: [address] [place], [place] [address] Performed By: #### 5 7021-8 ####[facility] LABIA [id number] [place] [address] [place] Immature granulocytes/100 WBC (Bld) 0.6 % Normal [facility] Comment on above: Order Comment: Speci men Type: BLOOD SPECIMENOrdering Facility: [facility] Address: [address] Performed By: #### 5 7021-8 ####[facility] LABCLIA [id number] [place] [address] [place] Lymphocytes (Bld) [#/Vol] 0.32 10*3/uL Low 1.00-4.00 [facility] Comment on above: Order Comment: Speci men Type: BLOOD SPECIMENOrdering Facility: [facility] Address: [address] [place], [place] [address] Performed By: #### 5 7021-8 ####[facility] LABIA [id number] [address] STATES [facility] Lymphocytes/100 WBC (Bld) 4.0 % Normal [facility] Comment on above: Order Comment: Speci men Type: BLOOD SPECIMENOrdering Facility: [facility] Address: [address] [place], [place] [address] Performed By: #### 5 7021-8 ####[facility] LABIA [id number] [place] [address] [place] MCH (RBC) [Entitic mass] 27.4 pg Normal 26.0-34.0 [facility] Comment on above: Order Comment: Speci men Type: BLOOD SPECIMENOrdering Facility: [facility] Address: [address] [place] [address] Performed By: #### 5 7021-8 ####[facility] [id number] [address] [place] MCHC (RBC) [Mass/Vol] 31.9 g/dL Normal 30.5-36.0 [facility] Comment on above: Order Comment: Speci men Type: BLOOD SPECIMENOrdering Facility: [facility] Address: [address] [place], [place] [address] Performed By: #### 5 7021-8 ####[facility] [id number] [address] [place] MCV (RBC) [Entitic vol] 86.0 fL Normal 80.0-100.0 [facility] Comment on above: Order Comment: Speci men Type: BLOOD SPECIMENOrdering Facility: [facility] Address: [address] [place], [place] [address] Performed By: #### 5 7021-8 ####[facility] [id number] [address] [id number] [address] [place] Monocytes (Bld) [#/Vol] 0.08 10*3/uL Normal <0.87 [facility] Comment on above: Order Comment: Speci men Type: BLOOD SPECIMENOrdering Facility: [facility] Address: [address] Performed By: #### 5 7021-8 ####[facility] LABCLIA [id number] [place] [address] [place] Monocytes/100 WBC (Bld) 1.0 % Normal [facility] Comment on above: Order Comment: Speci men Type: BLOOD SPECIMENOrdering Facility: [facility] Address: [address] [place], [place] [address] Performed By: #### 5 7021-8 ####[facility] LABCLIA [id number] [place] [address] [place] Neutrophils (Bld) [#/Vol] 7.39 10*3/uL Normal 1.45-7.50 [facility] Comment on above: Order Comment: Speci men Type: BLOOD SPECIMENOrdering Facility: [facility] Address: [address] [place], [place] [address] Performed By: #### 5 7021-8 ####[facility] LABCLIA [id number] [place] [address] [place] Neutrophils/100 WBC (Bld) 93.1 % Normal [facility] Comment on above: Order Comment: Speci men Type: BLOOD SPECIMENOrdering Facility: [facility] Address: [address] [place], [place] [address] Performed By: #### 5 7021-8 ####[facility] LABCLIA [id number] [place] [address] [place] Nucleated RBC (Bld) [#/Vol] 10*3/uL Normal <0.01 [facility] Comment on above: Order Comment: Speci men Type: BLOOD SPECIMENOrdering Facility: [facility] Address: [address] Performed By: #### 5 7021-8 ####[facility] LABCLIA [id number] [place] [address] [place] Nucleated RBC/100 WBC (Bld) [Ratio] 0.0 /100 WBC Normal [facility] Comment on above: Order Comment: Speci men Type: BLOOD SPECIMENOrdering Facility: [facility] Address: [address] Performed By: #### 5 7021-8 ####[facility] LABIA [id number] [place] [address] [place] Platelet mean volume (Bld) [Entitic vol] 9.3 fL Normal 9.0-12.7 [facility] Comment on above: Order Comment: Speci men Type: BLOOD SPECIMENOrdering Facility: [facility] Address: [address] Performed By: #### 5 7021-8 ####[facility] LABIA [id number] [place] [address] [place] Platelets (Bld) [#/Vol] 212 10*3/uL Normal 150-400 [facility] Comment on above: Order Comment: Speci men Type: BLOOD SPECIMENOrdering Facility: [facility] Address: [address] Performed By: #### 5 7021-8 ####[facility] LABCLIA [id number] [place] [address] [place] RBC (Bld) [#/Vol] 3.72 10*6/uL Low 4.20-6.00 [facility] Comment on above: Order Comment: Speci men Type: BLOOD SPECIMENOrdering Facility: [facility] Address: [address] [place], [place] [address] Performed By: #### 5 7021-8 ####[facility] LABCLIA [id number] [place] [address] [place] WBC (Bld) [#/Vol] 7.94 10*3/uL Normal 3.70-11.00 [facility] Comment on above: Order Comment: Speci men Type: BLOOD SPECIMENOrdering Facility: [facility] Address: [address] [place] [address] Performed By: #### 5 7021-8 ####[facility] LABIA [id number] [place] [address] [place] CBC panel Auto (Bld)on 10-11 Erythrocyte distribution width (RBC) [Ratio] 14.1 % Normal 11.5-15.0 [facility] Comment on above: Order Comment: Speci men Type: BLOOD SPECIMENOrdering Facility: [facility] Address: [address] [place] [address] Performed By: #### 5 8410-2 ####[facility] LABIA [id number] [place] [address] [place] Hematocrit (Bld) [Volume fraction] 29.1 % Low 39.0-51.0 [facility] Comment on above: Order Comment: Speci men Type: BLOOD SPECIMENOrdering Facility: [facility] Address: [address] [place] [address] Performed By: #### 5 8410-2 ####[facility] LABIA [id number] [place] [address] [place] Hemoglobin (Bld) [Mass/Vol] 9.3 g/dL Low 13.0-17.0 [facility] Comment on above: Order Comment: Speci men Type: BLOOD SPECIMENOrdering Facility: [facility] Address: [address] [place] [address] Performed By: #### 5 8410-2 ####[facility] LABIA [id number] [id number] MCH (RBC) [Entitic mass] 27.2 pg Normal 26.0-34.0 [facility] Comment on above: Order Comment: Speci men Type: BLOOD SPECIMENOrdering Facility: [facility] Address: [address] [place] [address] Performed By: #### 5 8410-2 ####[facility] LABCLIA [id number] [address] [place] MCHC (RBC) [Mass/Vol] 32.0 g/dL Normal 30.5-36.0 [facility] Comment on above: Order Comment: Speci men Type: BLOOD SPECIMENOrdering Facility: [facility] Address: [address] [place] [address] Performed By: #### 5 8410-2 ####[facility] LABCLIA [id number] [address] [place] MCV (RBC) [Entitic vol] 85.1 fL Normal 80.0-100.0 [facility] Comment on above: Order Comment: Speci men Type: BLOOD SPECIMENOrdering Facility: [facility] Address: [address] [place], [place] [address] Performed By: #### 5 8410-2 ####[facility] LABCLIA [id number] [address] [place] Nucleated RBC (Bld) [#/Vol] 10*3/uL Normal <0.01 [facility] Comment on above: Order Comment: Speci men Type: BLOOD SPECIMENOrdering Facility: [facility] Address: [address] [place], [place] [address] Performed By: #### 5 8410-2 ####[facility] LABCLIA [id number] [address] [place] Platelet mean volume (Bld) [Entitic vol] 9.6 fL Normal 9.0-12.7 [facility] Comment on above: Order Comment: Speci men Type: BLOOD SPECIMENOrdering Facility: [facility] Address: [address] [address] Performed By: #### 5 8410-2 ####[facility] LABCLIA [id number] [place] [address] [place] Platelets (Bld) [#/Vol] 221 10*3/uL Normal 150-400 [facility] Comment on above: Order Comment: Speci men Type: BLOOD SPECIMENOrdering Facility: [facility] Address: [address] [address] Performed By: #### 5 8410-2 ####[facility] LABIA [id number] [place] [address] [place] RBC (Bld) [#/Vol] 3.42 10*6/uL Low 4.20-6.00 [facility] Comment on above: Order Comment: Speci men Type: BLOOD SPECIMENOrdering Facility: [facility] Address: [address] [place] [address] Performed By: #### 5 8410-2 ####[facility] LABIA [id number] [place] [address] [place] WBC (Bld) [#/Vol] 4.18 10*3/uL Normal 3.70-11.00 [facility] Comment on above: Order Comment: Speci men Type: BLOOD SPECIMENOrdering Facility: [facility] Address: [address] [place], [place] [address] Performed By: #### 5 8410-2 ####[facility] LABIA [id number] [place] [address] [place] CONSULTon 10-11-2022 CONSULT Normal [facility] NURSING PROGon 10-11-2022 NURSING PROG Normal [facility] NURSING PROG Normal [facility] NUTRITIONon 10-11-2022 NUTRITION Normal [facility] OPERATIVE NOon 10-11-2022 OPERATIVE NO Normal [facility] XR CHEST 1V FRONTAL PORTon 0 10-11-2022 XR CHEST 1V FRONTAL PORT Normal [facility] ALLIED HEALTHon 10-10-2022 ALLIED HEALTH Normal [facility] Basic metabolic 2000 panelon 10-10-2022 Anion gap [Moles/Vol] 12 mmol/L Normal 9-18 [facility] Comment on above: Order Comment: Speci men Type: BLOOD SPECIMENOrdering Facility: [facility] Address: [address], [place] Performed By: #### 2 4321-2 ####[facility] LABCLIA [id number] [place] [address] [place] Calcium [Mass/Vol] 9.4 mg/dL Normal 8.5-10.2 [facility] Comment on above: Order Comment: Speci men Type: BLOOD SPECIMENOrdering Facility: [facility] Address: [address] Performed By: #### 2 4321-2 ####[facility] LABCLIA [id number] [place] [address] [place] Chloride [Moles/Vol] 106 mmol/L High 97-105 [facility] Comment on above: Order Comment: Speci men Type: BLOOD SPECIMENOrdering Facility: [facility] Address: [address] [place] [address] Performed By: #### 2 4321-2 ####[facility] LABCLIA [id number] [place] [address] [place] CO2 [Moles/Vol] 22 mmol/L Normal 22-30 [facility] Comment on above: Order Comment: Speci men Type: BLOOD SPECIMENOrdering Facility: [facility] Address: [address] [place] [address] Performed By: #### 2 4321-2 ####[facility] LABCLIA [id number] [place] [address] [place] [facility] Creatinine [Mass/Vol] 0.74 mg/dL Normal 0.73-1.22 [facility] Comment on above: Order Comment: Cierra cartwright Type: BLOOD SPECIMENOrdering Facility: [facility] Address: [address] [address] Performed By: #### 2 4321-2 ####[facility] LABCLIA [id number] [address] OF [facility] ESTIMATED GLOMERULAR FILTRATION RATE 99 mL/min/1.73m??? Normal >=60 [facility] Comment on above: Order Comment: Cierra cartwright Type: BLOOD SPECIMENOrdering Facility: [facility] Address: [address] [address] Result Comment: Ignacia mated Glomerular Filtration Rate [...] actual GFR. Performed By: #### 2 4321-2 ####[facility] LABCLIA [id number] [address] [place] Glucose [Mass/Vol] 90 mg/dL Normal 74-99 [facility] Comment on above: Order Comment: Cierra cartwright Type: BLOOD SPECIMENOrdering Facility: [facility] Address: [address] [place] [address] Result Comment: The [place] [employer] (ADA) provides guidance for cutoff [...] Standards of Medical Care in Diabetes 2016, [place] [employer]. Diabetes Care. 2016.39(Suppl 1). Performed By: #### 2 4321-2 ####[facility] LABIA [id number] [place] [address] [place] Potassium [Moles/Vol] 3.6 mmol/L Low 3.7-5.1 [facility] Comment on above: Order Comment: Speci men Type: BLOOD SPECIMENOrdering Facility: [facility] Address: [address] [address] Performed By: #### 2 4321-2 ####[facility] LABIA [id number] [place] [address] [place] Sodium [Moles/Vol] 140 mmol/L Normal 136-144 [facility] Comment on above: Order Comment: Speci men Type: BLOOD SPECIMENOrdering Facility: [facility] Address: [address] [address] Performed By: #### 2 4321-2 ####[facility] LABIA [id number] [place] [address] [place] Urea nitrogen [Mass/Vol] 7 mg/dL Low 9-24 [facility] Comment on above: Order Comment: Speci men Type: BLOOD SPECIMENOrdering Facility: [facility] Address: [address] [address] Performed By: #### 2 4321-2 ####[facility] [id number] [place] [address] [place] CBC W Auto Differential pane l (Bld)on 10-10-2022 Basophils (Bld) [#/Vol] 0.05 10*3/uL Normal <0.11 [facility] Comment on above: Order Comment: Speci men Type: BLOOD SPECIMENOrdering Facility: [facility] Address: [address] [address] Performed By: #### 5 7021-8 ####[facility] LABCLIA [id number] [place] [address] [place] Basophils/100 WBC (Bld) 0.7 % Normal [facility] Comment on above: Order Comment: Speci men Type: BLOOD SPECIMENOrdering Facility: [facility] Address: [address] [place], [place] [address] Performed By: #### 5 7021-8 ####[facility] LABCLIA [id number] [place] [address] [place] Differential cell count method Nom (Bld) Auto Normal [facility] Comment on above: Order Comment: Speci men Type: BLOOD SPECIMENOrdering Facility: [facility] Address: [address] [place], [place] [address] Performed By: #### 5 7021-8 ####[facility] LABCLIA [id number] [address] [place] Eosinophils (Bld) [#/Vol] 0.26 10*3/uL Normal <0.46 [facility] Comment on above: Order Comment: Speci men Type: BLOOD SPECIMENOrdering Facility: [facility] Address: [address] [place] [address] Performed By: #### 5 7021-8 ####[facility] LABIA [id number] [address] [place] Eosinophils/100 WBC (Bld) 3.6 % Normal [facility] Comment on above: Order Comment: Speci men Type: BLOOD SPECIMENOrdering Facility: [facility] Address: [address] [place] [address] Performed By: #### 5 7021-8 ####[facility] LABCLIA [id number] [place] [address] [place] Erythrocyte distribution width (RBC) [Ratio] 14.0 % Normal 11.5-15.0 [facility] Comment on above: Order Comment: Speci men Type: BLOOD SPECIMENOrdering Facility: [facility] Address: [address] Performed By: #### 5 7021-8 ####[facility] LABCLIA [id number] [place] [address] [place] Hematocrit (Bld) [Volume fraction] 32.2 % Low 39.0-51.0 [facility] Comment on above: Order Comment: Speci men Type: BLOOD SPECIMENOrdering Facility: [facility] Address: [address] Performed By: #### 5 7021-8 ####[facility] LABIA [id number] [place] [address] [place] Hemoglobin (Bld) [Mass/Vol] 10.4 g/dL Low 13.0-17.0 [facility] Comment on above: Order Comment: Speci men Type: BLOOD SPECIMENOrdering Facility: [facility] Address: [address] [place], [place] [address] Performed By: #### 5 7021-8 ####[facility] LABIA [id number] [address] [place] Immature granulocytes (Bld) [#/Vol] 0.03 10*3/uL Normal <0.10 [facility] Comment on above: Order Comment: Speci men Type: BLOOD SPECIMENOrdering Facility: [facility] Address: [address] Performed By: #### 5 7021-8 ####[facility] LABIA [id number] [address] [place] Immature granulocytes/100 WBC (Bld) 0.4 % Normal [facility] Comment on above: Order Comment: Speci men Type: BLOOD SPECIMENOrdering Facility: [facility] Address: [address] Performed By: #### 5 7021-8 ####[facility] LABCLIA [id number] [place] [address] [place] Lymphocytes (Bld) [#/Vol] 2.29 10*3/uL Normal 1.00-4.00 [facility] Comment on above: Order Comment: Speci men Type: BLOOD SPECIMENOrdering Facility: [facility] Address: [address] [place], [place] [address] Performed By: #### 5 7021-8 ####[facility] LABCLIA [id number] [address] [place] Lymphocytes/100 WBC (Bld) 31.4 % Normal [facility] Comment on above: Order Comment: Speci men Type: BLOOD SPECIMENOrdering Facility: [facility] Address: [address] [place], [place] [address] Performed By: #### 5 7021-8 ####[facility] LABIA [id number] [place] [address] [place] MCH (RBC) [Entitic mass] 27.4 pg Normal 26.0-34.0 [facility] Comment on above: Order Comment: Speci men Type: BLOOD SPECIMENOrdering Facility: [facility] Address: [address] [place], [place] [address] Performed By: #### 5 7021-8 ####[facility] LABCLIA [id number] [place] [address] [place] MCHC (RBC) [Mass/Vol] 32.3 g/dL Normal 30.5-36.0 [facility] Comment on above: Order Comment: Speci men Type: BLOOD SPECIMENOrdering Facility: [facility] Address: [address] [place], [place] [address] Performed By: #### 5 7021-8 ####[facility] LABIA [id number] [id number] [address] [place] MCV (RBC) [Entitic vol] 84.7 fL Normal 80.0-100.0 [facility] Comment on above: Order Comment: Speci men Type: BLOOD SPECIMENOrdering Facility: [facility] Address: [address] [place], [place] [address] Performed By: #### 5 7021-8 ####[facility] LABCLIA [id number] [place] [address] [place] Monocytes (Bld) [#/Vol] 0.72 10*3/uL Normal <0.87 [facility] Comment on above: Order Comment: Speci men Type: BLOOD SPECIMENOrdering Facility: [facility] Address: [address] [place], [place] [address] Performed By: #### 5 7021-8 ####[facility] LABCLIA [id number] [address] [place] Monocytes/100 WBC (Bld) 9.9 % Normal [facility] Comment on above: Order Comment: Speci men Type: BLOOD SPECIMENOrdering Facility: [facility] Address: [address] [place], [place] [address] Performed By: #### 5 7021-8 ####[facility] LABCLIA [id number] [place] [address] [place] Neutrophils (Bld) [#/Vol] 3.94 10*3/uL Normal 1.45-7.50 [facility] Comment on above: Order Comment: Speci men Type: BLOOD SPECIMENOrdering Facility: [facility] Address: [address] [place], [place] [address] Performed By: #### 5 7021-8 ####[facility] LABCLIA [id number] [place] [address] [place] Neutrophils/100 WBC (Bld) 54.0 % Normal [facility] Comment on above: Order Comment: Speci men Type: BLOOD SPECIMENOrdering Facility: [facility] Address: [address] Performed By: #### 5 7021-8 ####[facility] LABCLIA [id number] [place] [address] [place] [facility] Nucleated RBC (Bld) [#/Vol] 10*3/uL Normal <0.01 [facility] Comment on above: Order Comment: Speci men Type: BLOOD SPECIMENOrdering Facility: [facility] Address: [address] Performed By: #### 5 7021-8 ####[facility] LABCLIA [id number] [place] [address] [place] Nucleated RBC/100 WBC (Bld) [Ratio] 0.0 /100 WBC Normal [facility] Comment on above: Order Comment: Speci men Type: BLOOD SPECIMENOrdering Facility: [facility] Address: [address] Performed By: #### 5 7021-8 ####[facility] LABIA [id number] [place] [address] [place] Platelet mean volume (Bld) [Entitic vol] 10.0 fL Normal 9.0-12.7 [facility] Comment on above: Order Comment: Speci men Type: BLOOD SPECIMENOrdering Facility: [facility] Address: [address] [place] [address] Performed By: #### 5 7021-8 ####[facility] LABCLIA [id number] [place] [address] [place] Platelets (Bld) [#/Vol] 246 10*3/uL Normal 150-400 [facility] Comment on above: Order Comment: Speci men Type: BLOOD SPECIMENOrdering Facility: [facility] Address: [address] Performed By: #### 5 7021-8 ####[facility] LABCLIA [id number] [place] [address] [place] RBC (Bld) [#/Vol] 3.80 10*6/uL Low 4.20-6.00 [facility] Comment on above: Order Comment: Speci men Type: BLOOD SPECIMENOrdering Facility: [facility] Address: [address] [place] [address] Performed By: #### 5 7021-8 ####[facility] [id number] [place] [address] [place] WBC (Bld) [#/Vol] 7.29 10*3/uL Normal 3.70-11.00 [facility] Comment on above: Order Comment: Speci men Type: BLOOD SPECIMENOrdering Facility: [facility] Address: [address] [place] [address] Performed By: #### 5 7021-8 ####[facility] LABIA [id number] [place] [address] [place] XR CHEST 1V FRONTAL PORTon 0 10-10-2022 XR CHEST 1V FRONTAL PORT Normal [facility] HISTORY PHYSICALon HISTORY PHYSICAL Normal [facility] CASE MANAGEMon 09-26-2022 CASE MANAGEM Normal [facility] CNDSon 09-26-2022 CNDS Normal [facility] Renal function 2000 panelon 09-26-2022 Albumin [Mass/Vol] 3.3 g/dL Low 3.9-4.9 [facility] Comment on above: Order Comment: Speci men Type: BLOOD SPECIMENOrdering Facility: [facility] Address: [address] Performed By: #### 2 4362-6 ####[facility] LABIA [id number] [place] [address] [place] Anion gap [Moles/Vol] 9 mmol/L Normal 9-18 [facility] Comment on above: Order Comment: Speci men Type: BLOOD SPECIMENOrdering Facility: [facility] Address: [address] [place] [place] [address] Performed By: #### 2 4362-6 ####[facility] LABCLIA [id number] [place] [address] [place] Calcium [Mass/Vol] 9.0 mg/dL Normal 8.5-10.2 [facility] Comment on above: Order Comment: Speci men Type: BLOOD SPECIMENOrdering Facility: [facility] Address: [address] Performed By: #### 2 4362-6 ####[facility] LABCLIA [id number] [place] [address] [place] Chloride [Moles/Vol] 105 mmol/L Normal 97-105 [facility] Comment on above: Order Comment: Speci men Type: BLOOD SPECIMENOrdering Facility: [facility] Address: [address] [address] Performed By: #### 2 4362-6 ####[facility] LABCLIA [id number] [place] [address] [place] CO2 [Moles/Vol] 23 mmol/L Normal 22-30 [facility] Comment on above: Order Comment: Speci men Type: BLOOD SPECIMENOrdering Facility: [facility] Address: [address] Performed By: #### 2 4362-6 ####[facility] LABCLIA [id number] [place] [address] [place] Creatinine [Mass/Vol] 0.74 mg/dL Normal 0.73-1.22 [facility] Comment on above: Order Comment: Speci men Type: BLOOD SPECIMENOrdering Facility: [facility] Address: [address] Performed By: #### 2 4362-6 ####[facility] LABCLIA [id number] [place] [address] [place] ESTIMATED GLOMERULAR FILTRATION RATE 99 mL/min/1.73m??? Normal >=60 [facility] Comment on above: Order Comment: Cierra cartwright Type: BLOOD SPECIMENOrdering Facility: [facility] Address: [address] [address] Result Comment: Ignacia mated Glomerular Filtration Rate [...] actual GFR. Performed By: #### 2 4362-6 ####[facility] [id number] [place] [address] [place] Glucose [Mass/Vol] 104 mg/dL High 74-99 [facility] Comment on above: Order Comment: Cierra cartwright Type: BLOOD SPECIMENOrdering Facility: [facility] Address: [address] [place] [address] Result Comment: The [place] [employer] Association (ADA) provides guidance for cutoff [...] Standards of Medical Care in Diabetes 2016, [place] [employer]. Diabetes Care. 2016.39(Suppl 1). Performed By: #### 2 4362-6 ####[facility] [id number] [place] [address] [place] Phosphate [Mass/Vol] 2.6 mg/dL Low 2.7-4.8 [facility] Comment on above: Order Comment: Speci men Type: BLOOD SPECIMENOrdering Facility: [facility] Address: [address] [place], [place] [address] Performed By: #### 2 4362-6 ####[facility] LABCLIA [id number] [place] [address] [place] Potassium [Moles/Vol] 3.9 mmol/L Normal 3.7-5.1 [facility] Comment on above: Order Comment: Speci men Type: BLOOD SPECIMENOrdering Facility: [facility] Address: [address] [place], [place] [address] Performed By: #### 2 4362-6 ####[facility] LABCLIA [id number] [place] [address] [place] Sodium [Moles/Vol] 137 mmol/L Normal 136-144 [facility] Comment on above: Order Comment: Speci men Type: BLOOD SPECIMENOrdering Facility: [facility] Address: [address] [place], [place] [address] Performed By: #### 2 4362-6 ####[facility] LABCLIA [id number] [place] [address] [place] Urea nitrogen [Mass/Vol] 5 mg/dL Low 9-24 [facility] Comment on above: Order Comment: Speci men Type: BLOOD SPECIMENOrdering Facility: [facility] Address: [address] Performed By: #### 2 4362-6 ####[facility] LABCLIA [id number] [place] [address] [place] CASE MANAGEMon 09-25-2022 CASE MANAGEM Normal [facility] NURSING PROGon 09-25-2022 NURSING PROG Normal [facility] Renal function 2000 panelon 09-25-2022 Albumin [Mass/Vol] 3.1 g/dL Low 3.9-4.9 [facility] Comment on above: Order Comment: Speci men Type: BLOOD SPECIMENOrdering Facility: [facility] Address: [address] Performed By: #### 2 4362-6, 2570-10 ####[facility] LABCLIA [id number] [place] [address] [place] Anion gap [Moles/Vol] 10 mmol/L Normal 9-18 [facility] Comment on above: Order Comment: Speci men Type: BLOOD SPECIMENOrdering Facility: [facility] Address: [address] [address] Performed By: #### 2 4362-6, 2570-10 ####[facility] LABCLIA [id number] [place] [address] [place] Calcium [Mass/Vol] 8.7 mg/dL Normal 8.5-10.2 [facility] Comment on above: Order Comment: Speci men Type: BLOOD SPECIMENOrdering Facility: [facility] Address: [address] [address] Performed By: #### 2 4362-6, 2570-10 ####[facility] LABCLIA [id number] [place] [address] [place] Chloride [Moles/Vol] 106 mmol/L High 97-105 [facility] Comment on above: Order Comment: Speci men Type: BLOOD SPECIMENOrdering Facility: [facility] Address: [address] Performed By: #### 2 4362-6, 8 ####[facility] LABCLIA [id number] [place] [address] [place] CO2 [Moles/Vol] 23 mmol/L Normal 22-30 [facility] Comment on above: Order Comment: Speci men Type: BLOOD SPECIMENOrdering Facility: [facility] Address: [address] [place] [address] Performed By: #### 2 4362-6, 8 ####[facility] LABIA [id number] [address] STATES OF [facility] Creatinine [Mass/Vol] 0.73 mg/dL Normal 0.73-1.22 [facility] Comment on above: Order Comment: Cierra cartwright Type: BLOOD SPECIMENOrdering Facility: [facility] Address: [address] [facility] [address] Performed By: #### 2 4362-6, 8 ####[facility]BR[facility] [id number] [address] OF [facility] ESTIMATED GLOMERULAR FILTRATION RATE 100 mL/min/1.73m??? Normal >=60 [facility] Comment on above: Order Comment: Cierra cartwright Type: BLOOD SPECIMENOrdering Facility: [facility] Address: [address] [address] Result Comment: Ignacia mated Glomerular Filtration Rate [...] GFR. Performed By: #### 2 4362-6, 8 ####[facility] LABBRATT[facility] [id number] [place] [address] [place] Glucose [Mass/Vol] 83 mg/dL Normal 74-99 [facility] Comment on above: Order Comment: Cierra cartwright Type: BLOOD SPECIMENOrdering Facility: [facility] Address: [address] [address] Result Comment: The [place] Diabetes Association (ADA) provides guidance for cutoff [...] Standards of Medical Care in Diabetes 2016, [place] [employer]. Diabetes Care. 2016.39(Suppl 1). Performed By: #### 2 4362-6, 8 ####[facility] LABCLIA [id number] [place] [address] [place] Phosphate [Mass/Vol] 2.6 mg/dL Low 2.7-4.8 [facility] Comment on above: Order Comment: Speci men Type: BLOOD SPECIMENOrdering Facility: [facility] Address: [address] [place] [address] Performed By: #### 2 436-6, 2570-10 ####[facility] LABIA [id number] [place] [address] [place] Potassium [Moles/Vol] 4.1 mmol/L Normal 3.7-5.1 [facility] Comment on above: Order Comment: Speci men Type: BLOOD SPECIMENOrdering Facility: [facility] Address: [address] [place] [address] Performed By: #### 2 4362-6, 8 ####[facility] LABCLIA [id number] [place] [address] [place] Sodium [Moles/Vol] 139 mmol/L Normal 136-144 [facility] Comment on above: Order Comment: Speci men Type: BLOOD SPECIMENOrdering Facility: [facility] Address: [address] [place] [address] Performed By: #### 2 4362-6, 8 ####[facility] LABCLIA [id number] [address] [id number] Urea nitrogen [Mass/Vol] 7 mg/dL Low 9-24 [facility] Comment on above: Order Comment: Speci men Type: BLOOD SPECIMENOrdering Facility: [facility] Address: [address] [place] [address] Performed By: #### 2 4362-6, 2570-10 ####[facility] LABCLIA [id number] [address] [place] Trigl SerPl-mCncon 3 Triglyceride [Mass/Vol] 172 mg/dL High <150 [facility] Comment on above: Order Comment: Speci men Type: BLOOD SPECIMENOrdering Facility: [facility] Address: [address] [place] [address] Result Comment: <150 mg/dL, Normal 150-199 mg/dL, Borderline high 200-499 mg/dL, High>499 mg/dL, Very highReference:1. National Cholesterol Education Program ATP III Guideline At-A-Glance Quick Desk Reference: National Heart, Lung, and Blood [place]. National Institutes of Health. 2001: NIH Publication No. 01-3305. Performed By: #### 2 4362-6, 2570-10 ####[facility] LABCLIA [id number] [address] Triglyceride [Mass/Vol]on FASTING TIME 8 hrs Normal [facility] Comment on above: Order Comment: Speci men Type: BLOOD SPECIMENOrdering Facility: [facility] Address: [address] [place], [place] [address] Performed By: #### 2 4362-6, 8 ####[facility] LABCLIA [id number] [address] OF [facility] XR ABDOMEN 1V SUPINEon 09-25 XR ABDOMEN 1V SUPINE Normal [facility] BRIEF OP NOTon 09-24-2022 BRIEF OP NOT Normal [facility] CASE MANAGEMon 09-24-2022 CASE MANAGEM Normal [facility] CASE MANAGEM Normal [facility] CONSULT PROGon 09-24-2022 CONSULT PROG Normal [facility] IR CENTRAL CATH PLACEMENTon 09-24-2022 IR CENTRAL CATH PLACEMENT Normal [facility] Magnesium SerPl-mCncon 09-24 Magnesium [Mass/Vol] 2.0 mg/dL Normal 1.7-2.3 [facility] Comment on above: Order Comment: Speci men Type: BLOOD SPECIMENOrdering Facility: [facility] Address: [address] [address] Performed By: #### 1 9123-9, 98945-6 ####[facility] LABIA [id number] [place] [address] [place] PT EDon 09-24-2022 PT ED Normal [facility] Renal function 2000 panelon 09-24-2022 Albumin [Mass/Vol] 2.9 g/dL Low 3.9-4.9 [facility] Comment on above: Order Comment: Speci men Type: BLOOD SPECIMENOrdering Facility: [facility] Address: [address] [place] [address] Performed By: #### 1 9123-9, 36912-9 ####[facility] LABIA [id number] [place] [address] [place] Anion gap [Moles/Vol] 7 mmol/L Low 9-18 [facility] Comment on above: Order Comment: Speci men Type: BLOOD SPECIMENOrdering Facility: [facility] Address: [address] [address] Performed By: #### 1 9123-9, 25541-6 ####[facility] LABIA [id number] [place] [address] [place] Calcium [Mass/Vol] 8.6 mg/dL Normal 8.5-10.2 [facility] Comment on above: Order Comment: Speci men Type: BLOOD SPECIMENOrdering Facility: [facility] Address: [address] Performed By: #### 1 9123-9, 93389-7 ####[facility] LABCLIA [id number] [place] [address] [place] Chloride [Moles/Vol] 106 mmol/L High 97-105 [facility] Comment on above: Order Comment: Speci men Type: BLOOD SPECIMENOrdering Facility: [facility] Address: [address] [address] Performed By: #### 1 9123-9, 12783-8 ####[facility] LABCLIA [id number] [place] [address] [place] CO2 [Moles/Vol] 24 mmol/L Normal 22-30 [facility] Comment on above: Order Comment: Speci men Type: BLOOD SPECIMENOrdering Facility: [facility] Address: [address] [place] [address] Performed By: #### 1 9123-9, 85353-5 ####[facility] LABCLIA [id number] [place] [address] [place] Creatinine [Mass/Vol] 0.71 mg/dL Low 0.73-1.22 [facility] Comment on above: Order Comment: Speci men Type: BLOOD SPECIMENOrdering Facility: [facility] Address: [address] [place], [place] [address] Performed By: #### 1 9123-9, 13483-3 ####[facility] LABIA [id number] [place] [address] [place] ESTIMATED GLOMERULAR FILTRATION RATE 101 mL/min/1.73m??? Normal >=60 [facility] Comment on above: Order Comment: Speci men Type: BLOOD SPECIMENOrdering Facility: [facility] Address: [address] [place] [address] Result Comment: Ignacia mated Glomerular Filtration Rate [...] actual GFR. Performed By: #### 1 9123-9, 29427-9 ####[facility] LABCLIA [id number] [place] [address] [place] Glucose [Mass/Vol] 96 mg/dL Normal 74-99 [facility] Comment on above: Order Comment: Speci gabbie Type: BLOOD SPECIMENOrdering Facility: [facility] Address: [address] [place] [address] Result Comment: The [place] Diabetes Association (ADA) provides guidance for cutoff [...] Standards of Medical Care in Diabetes 2016, [place] [employer]. Diabetes Care. 2016.39(Suppl 1). Performed By: #### 1 9123-9, 07792-1 ####[facility] LABCLIA [id number] [place] [id number] [place] Phosphate [Mass/Vol] 3.2 mg/dL Normal 2.7-4.8 [facility] Comment on above: Order Comment: Cierra cartwright Type: BLOOD SPECIMENOrdering Facility: [facility] Address: [address] [phone] Performed By: #### 1 9123-9, 45792-6 ####[facility] LABCLIA [id number] [address] [place] Potassium [Moles/Vol] 3.9 mmol/L Normal 3.7-5.1 [facility] Comment on above: Order Comment: Speci men Type: BLOOD SPECIMENOrdering Facility: [facility] Address: [address] [place] [address] Performed By: #### 1 9123-9, 52302-4 ####[facility] LABIA [id number] [place] [address] [place] Sodium [Moles/Vol] 137 mmol/L Normal 136-144 [facility] Comment on above: Order Comment: Speci men Type: BLOOD SPECIMENOrdering Facility: [facility] Address: [address] [place] [address] Performed By: #### 1 9123-9, 41649-4 ####[facility] LABIA [id number] [address] [place] Urea nitrogen [Mass/Vol] 9 mg/dL Normal 9-24 [facility] Comment on above: Order Comment: Speci men Type: BLOOD SPECIMENOrdering Facility: [facility] Address: [address] [place] [address] Performed By: #### 1 9123-9, 07379-8 ####[facility] LABIA [id number] [place] [address] [place] SARS-CoV-2 RNA Resp Ql ROSSANA+p robeon 09-24-2022 SARS-CoV-2 (COVID-19) RNA ROSSANA+probe Ql (Resp) COVID 19 RESULT: Not detected The method used is RT-PCR or an equivalent NAAT method. Reference Range(the expected result in uninfected individuals): Not detected Normal [facility] Comment on above: Performed By: #### 9 4500-6 ####[facility] LABIA [id number] [place] [address] [place] THERAPY NTon 09-24-2022 THERAPY NT Normal [facility] XR ABDOMEN 1V SUPINEon 09-24 XR ABDOMEN 1V SUPINE Normal [facility] CASE MANAGEMon 09-23-2022 CASE MANAGEM Normal [facility] CONSULT PROGon 09-23-2022 CONSULT PROG Normal [facility] THERAPY NTon 09-23-2022 THERAPY NT Normal [facility] THERAPY NT Normal [facility] XR ABDOMEN 1V SUPINEon 09-23 XR ABDOMEN 1V SUPINE [facility] ALLIED HEALTHon 09-22-2022 ALLIED HEALTH Normal [facility] Bacteria Bld Culton 09-23-19 23 Bacteria identified Cx Nom (Bld) CULTURE, BLOOD: No growth 5 days Normal [facility] Comment on above: Performed By: #### 6 00-7 ####[facility] LABCLIA [id number] [place] [address] [place] CASE MGT INIT ASSESon 2022 CASE MGT INIT ASSES Normal [facility] CBC panel Auto (Bld)on 09-22 Erythrocyte distribution width (RBC) [Ratio] 13.8 % Normal 11.5-15.0 [facility] Comment on above: Order Comment: Speci men Type: BLOOD SPECIMENOrdering Facility: [facility] Address: [address] [place] [address] Performed By: #### 5 8410-2 ####[facility] LABCLIA [id number] [place] [address] [place] Hematocrit (Bld) [Volume fraction] 30.0 % Low 39.0-51.0 [facility] Comment on above: Order Comment: Speci men Type: BLOOD SPECIMENOrdering Facility: [facility] Address: [address] [place] [address] Performed By: #### 5 8410-2 ####[facility] LABCLIA [id number] [place] [address] [place] Hemoglobin (Bld) [Mass/Vol] 9.7 g/dL Low 13.0-17.0 [facility] Comment on above: Order Comment: Speci men Type: BLOOD SPECIMENOrdering Facility: [facility] Address: [address] [place], [place] [address] Performed By: #### 5 8410-2 ####[facility] LABIA [id number] [address] MCH (RBC) [Entitic mass] 27.7 pg Normal 26.0-34.0 [facility] Comment on above: Order Comment: Speci men Type: BLOOD SPECIMENOrdering Facility: [facility] Address: [address] [place], [place] [address] Performed By: #### 5 8410-2 ####[facility] LABIA [id number] [address] [place] MCHC (RBC) [Mass/Vol] 32.3 g/dL Normal 30.5-36.0 [facility] Comment on above: Order Comment: Speci men Type: BLOOD SPECIMENOrdering Facility: [facility] Address: [address] [place], [place] [address] Performed By: #### 5 8410-2 ####[facility] LABIA [id number] [address] [place] MCV (RBC) [Entitic vol] 85.7 fL Normal 80.0-100.0 [facility] Comment on above: Order Comment: Speci men Type: BLOOD SPECIMENOrdering Facility: [facility] Address: [address] [place], [place] [address] Performed By: #### 5 8410-2 ####[facility] LABIA [id number] [address] [place] Nucleated RBC (Bld) [#/Vol] 0.02 10*3/uL High <0.01 [facility] Comment on above: Order Comment: Speci men Type: BLOOD SPECIMENOrdering Facility: [facility] Address: [address] [place] [address] Performed By: #### 5 8410-2 ####[facility] LABIA [id number] [place] [address] [place] Platelet mean volume (Bld) [Entitic vol] 10.9 fL Normal 9.0-12.7 [facility] Comment on above: Order Comment: Speci men Type: BLOOD SPECIMENOrdering Facility: [facility] Address: [address] [place] [address] Performed By: #### 5 8410-2 ####[facility] LABIA [id number] [place] [address] [place] Platelets (Bld) [#/Vol] 137 10*3/uL Low 150-400 [facility] Comment on above: Order Comment: Speci men Type: BLOOD SPECIMENOrdering Facility: [facility] Address: [address] [place] [address] Result Comment: Resu lts checked and verified.No clot detected. Performed By: #### 5 8410-2 ####[facility] LABIA [id number] [place] [address] [place] RBC (Bld) [#/Vol] 3.50 10*6/uL Low 4.20-6.00 [facility] Comment on above: Order Comment: Speci men Type: BLOOD SPECIMENOrdering Facility: [facility] Address: [address] [place] [address] Performed By: #### 5 8410-2 ####[facility] LABIA [id number] [place] [address] [place] WBC (Bld) [#/Vol] 6.05 10*3/uL Normal 3.70-11.00 [facility] Comment on above: Order Comment: Speci men Type: BLOOD SPECIMENOrdering Facility: [facility] Address: [address] [place] [address] Performed By: #### 5 8410-2 ####[facility] LABCLIA [id number] [place] [id number] [place] CONSULTon 09-22-2022 CONSULT Normal [facility] CONSULT PROGon 09-22-2022 CONSULT PROG Normal [facility] Comprehensive metabolic 2000 panelon 09-22-2022 Albumin [Mass/Vol] 3.0 g/dL Low 3.9-4.9 [facility] Comment on above: Order Comment: Speci men Type: BLOOD SPECIMENOrdering Facility: [facility] Address: [address] [address] Performed By: #### 2 571-8, 2777-1, , ####[facility] LABCLIA [id number] [place] [address] [place] ALP [Catalytic activity/Vol] 53 U/L Normal 38-113 [facility] Comment on above: Order Comment: Speci men Type: BLOOD SPECIMENOrdering Facility: [facility] Address: [address] [address] Performed By: #### 2 571-8, 2777-1, , ####[facility] LABIA [id number] [place] [address] [place] ALT [Catalytic activity/Vol] 18 U/L Normal 10-54 [facility] Comment on above: Order Comment: Speci men Type: BLOOD SPECIMENOrdering Facility: [facility] Address: [address] Performed By: #### 2 571-8, 277-1, 90064-4, ####[facility] LABCLIA [id number] [place] [id number] [place] Anion gap [Moles/Vol] 9 mmol/L Normal 9-18 [facility] Comment on above: Order Comment: Speci men Type: BLOOD SPECIMENOrdering Facility: [facility] Address: [address] [address] Performed By: #### 2 571-8, 2777-1, 72491-9, 82118-7 ####[facility] LABCLIA [id number] [place] [address] [place] AST [Catalytic activity/Vol] 16 U/L Normal 14-40 [facility] Comment on above: Order Comment: Speci men Type: BLOOD SPECIMENOrdering Facility: [facility] Address: [address] [address] Performed By: #### 2 571-8, 2777-1, 37832-4, ####[facility] LABCLIA [id number] [place] [address] [place] Bilirubin [Mass/Vol] 0.9 mg/dL Normal 0.2-1.3 [facility] Comment on above: Order Comment: Speci men Type: BLOOD SPECIMENOrdering Facility: [facility] Address: [address] [address] Performed By: #### 2 571-8, 2777-1, 71060-5, ####[facility] LABIA [id number] [place] [address] [place] Calcium [Mass/Vol] 8.9 mg/dL Normal 8.5-10.2 [facility] Comment on above: Order Comment: Speci men Type: BLOOD SPECIMENOrdering Facility: [facility] Address: [address] [address] Performed By: #### 2 571-8, 2777-1, 96189-1, 19953-7 ####[facility] LABCLIA [id number] [place] [address] [place] Chloride [Moles/Vol] 107 mmol/L High 97-105 [facility] Comment on above: Order Comment: Speci men Type: BLOOD SPECIMENOrdering Facility: [facility] Address: [address] [phone] Performed By: #### 2 571-8, 277-1, 73778-7, ####[facility] LABIA [id number] [place] [address] [place] CO2 [Moles/Vol] 24 mmol/L Normal 22-30 [facility] Comment on above: Order Comment: Speci men Type: BLOOD SPECIMENOrdering Facility: [facility] Address: [address] [address] Performed By: #### 2 571-8, 277-1, 71899-4, ####[facility]BR[facility] [id number] [place] [address] [place] Creatinine [Mass/Vol] 0.84 mg/dL Normal 0.73-1.22 [facility] Comment on above: Order Comment: Speci men Type: BLOOD SPECIMENOrdering Facility: [facility] Address: [address] [place] [address] Performed By: #### 2 571-8, 1, , ####[facility]BR[facility] [id number] [place] [address] [place] ESTIMATED GLOMERULAR FILTRATION RATE 96 mL/min/1.73m??? Normal >=60 [facility] Comment on above: Order Comment: Speci men Type: BLOOD SPECIMENOrdering Facility: [facility] Address: [address] [place] [address] Result Comment: Ignacia mated Glomerular Filtration Rate [...] GFR. Performed By: #### 2 571-8, 2777-1, , ####[facility] LABCLIA [id number] [address] [address] [place] Glucose [Mass/Vol] 121 mg/dL High 74-99 [facility] Comment on above: Order Comment: Cierra cartwright Type: BLOOD SPECIMENOrdering Facility: [facility] Address: [address] [phone] Result Comment: The [place] Diabetes Association (ADA) provides guidance for cutoff [...] Standards of Medical Care in Diabetes 2016, [place] [employer]. Diabetes Care. 2016.39(Suppl 1). Performed By: #### 2 571-8, 2776-1, , ####[facility] LABCLIA [id number] [place] [id number] [place] Potassium [Moles/Vol] 3.7 mmol/L Normal 3.7-5.1 [facility] Comment on above: Order Comment: Cierra cartwright Type: BLOOD SPECIMENOrdering Facility: [facility] Address: [address] [place] [address] Performed By: #### 2 571-8, 2777-1, , ####[facility] LABCLIA [id number] [address] [address] [place] Protein [Mass/Vol] 6.3 g/dL Normal 6.3-8.0 [facility] Comment on above: Order Comment: Speci men Type: BLOOD SPECIMENOrdering Facility: [facility] Address: [address] [address] Performed By: #### 2 571-8, 277-1, 62543-3, ####[facility] LABCLIA [id number] [place] [address] [place] Sodium [Moles/Vol] 140 mmol/L Normal 136-144 [facility] Comment on above: Order Comment: Speci men Type: BLOOD SPECIMENOrdering Facility: [facility] Address: [address] [address] Performed By: #### 2 571-8, 277-1, , ####[facility] LABCLIA [id number] [place] [address] [place] Urea nitrogen [Mass/Vol] 18 mg/dL Normal 9-24 [facility] Comment on above: Order Comment: Speci men Type: BLOOD SPECIMENOrdering Facility: [facility] Address: [address] [place] [address] Performed By: #### 2 571-8, 2771, , ####[facility] LABCLIA [id number] [place] [id number] [place] Magnesium SerPl-mCncon 09-22 Magnesium [Mass/Vol] 1.6 mg/dL Low 1.7-2.3 [facility] Comment on above: Order Comment: Speci men Type: BLOOD SPECIMENOrdering Facility: [facility] Address: [address] [place] [address] Performed By: #### 2 571-8, 277-1, , ####[facility] LABCLIA [id number] [place] [address] [place] Phosphate SerPl-mCncon 09-22 Phosphate [Mass/Vol] 2.4 mg/dL Low 2.7-4.8 [facility] Comment on above: Order Comment: Speci men Type: BLOOD SPECIMENOrdering Facility: [facility] Address: [address] [place] [address] Performed By: #### 2 571-8, 2777-1, 94848-4, 77370-0 ####[facility] LABCLIA [id number] [place] [address] [place] Trigl SerPl-ncon Triglyceride [Mass/Vol] 213 mg/dL High <150 [facility] Comment on above: Order Comment: Speci men Type: BLOOD SPECIMENOrdering Facility: [facility] Address: [address] [place] [address] Result Comment: <150 mg/dL, Normal 150-199 mg/dL, Borderline high 200-499 mg/dL, High>499 mg/dL, Very highReference:1. National Cholesterol Education Program ATP III Guideline At-A-Glance Quick Desk Reference: National Heart, Lung, and Blood [place]. National Institutes of Health. 2001: NIH Publication No. 01-3305. Performed By: #### 2 571-8, 2777-1, 96960-1, 92011-1 ####[facility] LABCLIA [id number] [place] [id number] [place] Triglyceride [Mass/Vol]on FASTING TIME 8 hrs Normal [facility] Comment on above: Order Comment: Speci men Type: BLOOD SPECIMENOrdering Facility: [facility] Address: [address] [place], [place] [address] Performed By: #### 2 571-8, 2777-1, 68519-6, 79516-9 ####[facility] LABCLIA [id number] [address] [address] [place] XR ABDOMEN 1V SUPINEon 09-22 XR ABDOMEN 1V SUPINE Normal [facility] CBC panel Auto (Bld)on 09-21 Erythrocyte distribution width (RBC) [Ratio] 14.3 % Normal 11.5-15.0 [facility] Comment on above: Order Comment: Speci men Type: BLOOD SPECIMENOrdering Facility: [facility] Address: [address] [place] [address] Performed By: #### 5 8410-2 ####[facility] LABIA [id number] [address] [place] OF [facility] Hematocrit (Bld) [Volume fraction] 30.0 % Low 39.0-51.0 [facility] Comment on above: Order Comment: Speci men Type: BLOOD SPECIMENOrdering Facility: [facility] Address: [address] [place] [address] Performed By: #### 5 8410-2 ####[facility] LABIA [id number] [address] [place] Hemoglobin (Bld) [Mass/Vol] 9.4 g/dL Low 13.0-17.0 [facility] Comment on above: Order Comment: Speci men Type: BLOOD SPECIMENOrdering Facility: [facility] Address: [address] [place] [address] Performed By: #### 5 8410-2 ####[facility] LABIA [id number] [place] [address] [place] MCH (RBC) [Entitic mass] 27.7 pg Normal 26.0-34.0 [facility] Comment on above: Order Comment: Speci men Type: BLOOD SPECIMENOrdering Facility: [facility] Address: [address] [place] [address] Performed By: #### 5 8410-2 ####[facility] LABCLIA [id number] [place] [address] [place] MCHC (RBC) [Mass/Vol] 31.3 g/dL Normal 30.5-36.0 [facility] Comment on above: Order Comment: Speci men Type: BLOOD SPECIMENOrdering Facility: [facility] Address: [address] [place], [place] [address] Performed By: #### 5 8410-2 ####[facility] LABIA [id number] [address] [place] MCV (RBC) [Entitic vol] 88.5 fL Normal 80.0-100.0 [facility] Comment on above: Order Comment: Speci men Type: BLOOD SPECIMENOrdering Facility: [facility] Address: [address] [place], [place] [address] Performed By: #### 5 8410-2 ####[facility] LABIA [id number] [place] [address] [place] Nucleated RBC (Bld) [#/Vol] 10*3/uL Normal <0.01 [facility] Comment on above: Order Comment: Speci men Type: BLOOD SPECIMENOrdering Facility: [facility] Address: [address] [place], [place] [address] Performed By: #### 5 8410-2 ####[facility] LABIA [id number] [address] [place] Platelet mean volume (Bld) [Entitic vol] 11.3 fL Normal 9.0-12.7 [facility] Comment on above: Order Comment: Speci men Type: BLOOD SPECIMENOrdering Facility: [facility] Address: [address] [place], [place] [address] Performed By: #### 5 8410-2 ####[facility] LABIA [id number] [place] [address] [place] Platelets (Bld) [#/Vol] 127 10*3/uL Low 150-400 [facility] Comment on above: Order Comment: Speci men Type: BLOOD SPECIMENOrdering Facility: [facility] Address: [address] Result Comment: Resu lts checked and verified.No clot detected. Performed By: #### 5 8410-2 ####[facility] LABCLIA [id number] [place] [address] [place] RBC (Bld) [#/Vol] 3.39 10*6/uL Low 4.20-6.00 [facility] Comment on above: Order Comment: Speci men Type: BLOOD SPECIMENOrdering Facility: [facility] Address: [address] Performed By: #### 5 8410-2 ####[facility] LABIA [id number] [place] [address] [place] WBC (Bld) [#/Vol] 17.24 10*3/uL High 3.70-11.00 [facility] Comment on above: Order Comment: Speci men Type: BLOOD SPECIMENOrdering Facility: [facility] Address: [address] Performed By: #### 5 8410-2 ####[facility] LABIA [id number] [place] [address] [place] CONSULTon 09-21-2022 CONSULT Normal [facility] CONSULT PROGon 09-21-2022 CONSULT PROG Normal [facility] CONSULT PROG Normal [facility] Comprehensive metabolic 2000 panelon 09-21-2022 Albumin [Mass/Vol] 3.1 g/dL Low 3.9-4.9 [facility] Comment on above: Order Comment: Speci men Type: BLOOD SPECIMENOrdering Facility: [facility] Address: [address] [place], [place] [address] Performed By: #### 2 777-1, 59506-9, 71756-0 ####[facility] LABCLIA [id number] [place] [address] [place] ALP [Catalytic activity/Vol] 56 U/L Normal 38-113 [facility] Comment on above: Order Comment: Speci men Type: BLOOD SPECIMENOrdering Facility: [facility] Address: [address] [place] [address] Performed By: #### 2 777-1, , ####[facility] LABCLIA [id number] [place] [address] [place] ALT [Catalytic activity/Vol] 24 U/L Normal 10-54 [facility] Comment on above: Order Comment: Speci men Type: BLOOD SPECIMENOrdering Facility: [facility] Address: [address] [place], [place] [address] Performed By: #### 2 777-1, , ####[facility] LABCLIA [id number] [place] [address] [place] Anion gap [Moles/Vol] 13 mmol/L Normal 9-18 [facility] Comment on above: Order Comment: Speci men Type: BLOOD SPECIMENOrdering Facility: [facility] Address: [address] [place], [place] [address] Performed By: #### 2 777-1, , ####[facility] LABCLIA [id number] [place] [address] [place] AST [Catalytic activity/Vol] 28 U/L Normal 14-40 [facility] Comment on above: Order Comment: Speci men Type: BLOOD SPECIMENOrdering Facility: [facility] Address: [address] [place] [address] Performed By: #### 2 777-1, , ####[facility] LABCLIA [id number] [place] [id number] [place] Bilirubin [Mass/Vol] 0.8 mg/dL Normal 0.2-1.3 [facility] Comment on above: Order Comment: Speci men Type: BLOOD SPECIMENOrdering Facility: [facility] Address: [address] Performed By: #### 2 777-1, , ####[facility] LABCLIA [id number] [place] [address] [place] Calcium [Mass/Vol] 9.1 mg/dL Normal 8.5-10.2 [facility] Comment on above: Order Comment: Speci men Type: BLOOD SPECIMENOrdering Facility: [facility] Address: [address] Performed By: #### 2 777-1, , ####[facility] LABCLIA [id number] [place] [address] [place] Chloride [Moles/Vol] 107 mmol/L High 97-105 [facility] Comment on above: Order Comment: Speci men Type: BLOOD SPECIMENOrdering Facility: [facility] Address: [address] Performed By: #### 2 777-1, , ####[facility] LABCLIA [id number] [place] [address] [place] CO2 [Moles/Vol] 19 mmol/L Low 22-30 [facility] Comment on above: Order Comment: Speci men Type: BLOOD SPECIMENOrdering Facility: [facility] Address: [address] [place] [address] Performed By: #### 2 777-1, , ####[facility] LABCLIA [id number] [place] [id number] [place] Creatinine [Mass/Vol] 1.13 mg/dL Normal 0.73-1.22 [facility] Comment on above: Order Comment: Speci men Type: BLOOD SPECIMENOrdering Facility: [facility] Address: [address] [place] [address] Performed By: #### 2 777-1, , ####[facility] LABIA [id number] [place] [id number] [place] ESTIMATED GLOMERULAR FILTRATION RATE 71 mL/min/1.73m??? Normal >=60 [facility] Comment on above: Order Comment: Cierra men Type: BLOOD SPECIMENOrdering Facility: [facility] Address: [address] [place] [id number] Result Comment: Ignacia mated Glomerular Filtration Rate [...] actual GFR. Performed By: #### 2 777-1, 16761-2, ####[facility] LABIA [id number] [place] [id number] [place] Glucose [Mass/Vol] 106 mg/dL High 74-99 [facility] Comment on above: Order Comment: Cierra cartwright Type: BLOOD SPECIMENOrdering Facility: [facility] Address: [address] [place] [id number] Result Comment: The [place] [employer] (ADA) provides guidance for cutoff [...] Standards of Medical Care in Diabetes 2016, [place] [employer]. Diabetes Care. 2016.39(Suppl 1). Performed By: #### 2 777-1, , ####[facility] LABIA [id number] [place] [id number] [place] Potassium [Moles/Vol] 4.3 mmol/L Normal 3.7-5.1 [facility] Comment on above: Order Comment: Speci men Type: BLOOD SPECIMENOrdering Facility: [facility] Address: [address] Performed By: #### 2 777-1, , ####[facility] LABIA [id number] [place] [address] [place] Protein [Mass/Vol] 6.2 g/dL Low 6.3-8.0 [facility] Comment on above: Order Comment: Speci men Type: BLOOD SPECIMENOrdering Facility: [facility] Address: [address] Performed By: #### 2 777-1, , ####[facility] LABIA [id number] [place] [address] [place] Sodium [Moles/Vol] 139 mmol/L Normal 136-144 [facility] Comment on above: Order Comment: Speci men Type: BLOOD SPECIMENOrdering Facility: [facility] Address: [address] [place] [address] Performed By: #### 2 777-1, , ####[facility] LABIA [id number] [place] [id number] [place] Urea nitrogen [Mass/Vol] 27 mg/dL High 9-24 [facility] Comment on above: Order Comment: Speci men Type: BLOOD SPECIMENOrdering Facility: [facility] Address: [address] [place] [address] Performed By: #### 2 777-1, , ####[facility] LABCLIA [id number] [place] [id number] [place] HISTORY PHYSICALon HISTORY PHYSICAL Normal [facility] Magnesium SerPl-mCncon 09-21 Magnesium [Mass/Vol] 1.9 mg/dL Normal 1.7-2.3 [facility] Comment on above: Order Comment: Speci men Type: BLOOD SPECIMENOrdering Facility: [facility] Address: [address] [place] [phone] Performed By: #### 2 777-1, , ####[facility] LABCLIA [id number] [place] [address] [place] NURSING PROGon 09-21-2022 NURSING PROG Normal [facility] Phosphate SerPl-ncon 09-21 Phosphate [Mass/Vol] 2.9 mg/dL Normal 2.7-4.8 [facility] Comment on above: Order Comment: Speci men Type: BLOOD SPECIMENOrdering Facility: [facility] Address: [address] [place], [place] [address] Performed By: #### 2 777-1, , ####[facility] LABIA [id number] [place] [address] [place] XR ABDOMEN 1V SUPINEon 09-21 XR ABDOMEN 1V SUPINE Normal [facility] ARTERIAL BLOOD GASESon 09-20 Base deficit (BldA) [Moles/Vol] -1 mmol/L Normal -2-0 [facility] Comment on above: Order Comment: Speci men Type: ARTERIAL BLOOD SPECIMENOrdering Facility: [facility] Address: [address] [place] [address] Performed By: #### A LLBG ####[facility] LABCLIA [id number] [place] [id number] [place] Body temperature 98.6 [degF] Normal [facility] Comment on above: Order Comment: Speci men Type: ARTERIAL BLOOD SPECIMENOrdering Facility: [facility] Address: [address] [place] [address] Performed By: #### A LLBG ####[facility] LABCLIA [id number] [place] [address] [place] Calcium.ionized (Bld) [Mass/Vol] 1.12 mmol/L Normal 1.08-1.30 [facility] Comment on above: Order Comment: Speci men Type: ARTERIAL BLOOD SPECIMENOrdering Facility: [facility] Address: [address] [place] [address] Performed By: #### A LLBG ####[facility] LABCLIA [id number] [place] [address] [place] Calcium.ionized adjusted to pH 7.4 (BldA) [Moles/Vol] 1.18 mmol/L Normal 1.08-1.30 [facility] Comment on above: Order Comment: Speci men Type: ARTERIAL BLOOD SPECIMENOrdering Facility: [facility] Address: [address] [place] [address] Performed By: #### A LLBG ####[facility] LABCLIA [id number] [place] [address] [place] Carboxyhemoglobin (BldA) [Mass fraction] 0.6 % Normal 0.0-2.0 [facility] Comment on above: Order Comment: Speci men Type: ARTERIAL BLOOD SPECIMENOrdering Facility: [facility] Address: [address] [place] [address] Result Comment: Carb oxyhemoglobin Reference Range for Smokers: 2.0-8.0% Performed By: #### A LLBG ####[facility] LABCLIA [id number] [place] [address] [place] CO2 (Bld) [Partial pressure] 27 mm Hg Low 36-46 [facility] Comment on above: Order Comment: Speci men Type: ARTERIAL BLOOD SPECIMENOrdering Facility: [facility] Address: [address] Performed By: #### A LLBG ####[facility] LABCLIA [id number] [place] [address] [place] CO2 [Moles/Vol] 22 mmol/L Normal 22-28 [facility] Comment on above: Order Comment: Speci men Type: ARTERIAL BLOOD SPECIMENOrdering Facility: [facility] Address: [address] Performed By: #### A LLBG ####[facility] LABCLIA [id number] [place] [address] [place] Glucose [Mass/Vol] 120 mg/dL High 60-105 [facility] Comment on above: Order Comment: Speci men Type: ARTERIAL BLOOD SPECIMENOrdering Facility: [facility] Address: [address] Performed By: #### A LLBG ####[facility] LABCLIA [id number] [place] [address] [place] HCO3 (Bld) [Moles/Vol] 21 mmol/L Low 22-26 [facility] Comment on above: Order Comment: Speci men Type: ARTERIAL BLOOD SPECIMENOrdering Facility: [facility] Address: [address] Performed By: #### A LLBG ####[facility] LABCLIA [id number] [place] [address] [place] Hematocrit (Bld) [Volume fraction] 29.5 % Low 39.0-51.0 [facility] Comment on above: Order Comment: Speci men Type: ARTERIAL BLOOD SPECIMENOrdering Facility: [facility] Address: [address] Performed By: #### A LLBG ####[facility] LABCLIA [id number] [place] [address] [place] Hemoglobin (Bld) [Mass/Vol] 9.5 g/dL Low 13.0-17.0 [facility] Comment on above: Order Comment: Speci men Type: ARTERIAL BLOOD SPECIMENOrdering Facility: [facility] Address: [address] [place], [place] [address] Performed By: #### A LLBG ####[facility] LABIA [id number] [place] [address] [place] Lactate [Moles/Vol] 1.3 mmol/L Normal 0.5-2.2 [facility] Comment on above: Order Comment: Speci men Type: ARTERIAL BLOOD SPECIMENOrdering Facility: [facility] Address: [address] [place], [place] [address] Performed By: #### A LLBG ####[facility] LABIA [id number] [place] [address] [place] Methemoglobin (Bld) [Mass fraction] 1.4 % Normal 0.0-1.5 [facility] Comment on above: Order Comment: Speci men Type: ARTERIAL BLOOD SPECIMENOrdering Facility: [facility] Address: [address] [place], [place] [address] Performed By: #### A LLBG ####[facility] LABIA [id number] [place] [address] [place] O2 THERAPY Ventilator Normal [facility] Comment on above: Order Comment: Speci men Type: ARTERIAL BLOOD SPECIMENOrdering Facility: [facility] Address: [address] [place], [place] [address] Performed By: #### A LLBG ####[facility] LABIA [id number] [place] [address] [place] Oxygen (Bld) [Partial pressure] 140 mm Hg High 85-95 [facility] Comment on above: Order Comment: Speci men Type: ARTERIAL BLOOD SPECIMENOrdering Facility: [facility] Address: [address] Performed By: #### A LLBG ####[facility] LABCLIA [id number] [place] [address] [place] Oxyhemoglobin (BldA) [Mass fraction] 97 % Normal 95-98 [facility] Comment on above: Order Comment: Speci men Type: ARTERIAL BLOOD SPECIMENOrdering Facility: [facility] Address: [address] Performed By: #### A LLBG ####[facility] LABCLIA [id number] [place] [address] [place] pH (Bld) 7.50 [pH] High 7.35-7.45 [facility] Comment on above: Order Comment: Speci men Type: ARTERIAL BLOOD SPECIMENOrdering Facility: [facility] Address: [address] Performed By: #### A LLBG ####[facility] LABCLIA [id number] [place] [address] [place] Potassium [Moles/Vol] 4.0 mmol/L Normal 3.5-5.0 [facility] Comment on above: Order Comment: Speci men Type: ARTERIAL BLOOD SPECIMENOrdering Facility: [facility] Address: [address] [place] [address] Performed By: #### A LLBG ####[facility] LABCLIA [id number] [place] [address] [place] Sodium [Moles/Vol] 140 mmol/L Normal 136-144 [facility] Comment on above: Order Comment: Speci men Type: ARTERIAL BLOOD SPECIMENOrdering Facility: [facility] Address: [address] Performed By: #### A LLBG ####[facility] LABCLIA [id number] [place] [address] [place] Basic metabolic 2000 panelon 09-20-2022 Anion gap [Moles/Vol] 13 mmol/L Normal 9-18 [facility] Comment on above: Order Comment: Speci men Type: BLOOD SPECIMENOrdering Facility: [facility] Address: [address] Performed By: #### 2 4321-2 ####[facility] LABCLIA [id number] [place] [address] [place] Calcium [Mass/Vol] 8.3 mg/dL Low 8.5-10.2 [facility] Comment on above: Order Comment: Speci men Type: BLOOD SPECIMENOrdering Facility: [facility] Address: [address] [place] [address] Performed By: #### 2 4321-2 ####[facility] LABCLIA [id number] [place] [address] [place] Chloride [Moles/Vol] 108 mmol/L High 97-105 [facility] Comment on above: Order Comment: Speci men Type: BLOOD SPECIMENOrdering Facility: [facility] Address: [address] Performed By: #### 2 4321-2 ####[facility] LABCLIA [id number] [place] [address] [place] CO2 [Moles/Vol] 18 mmol/L Low 22-30 [facility] Comment on above: Order Comment: Speci men Type: BLOOD SPECIMENOrdering Facility: [facility] Address: [address] [place], [place] [address] Performed By: #### 2 4321-2 ####[facility] LABCLIA [id number] [place] [address] [place] Creatinine [Mass/Vol] 1.66 mg/dL High 0.73-1.22 [facility] Comment on above: Order Comment: Cierra gabbie Type: BLOOD SPECIMENOrdering Facility: [facility] Address: [address] [place] [address] Performed By: #### 2 4321-2 ####[facility] LABCLIA [id number] [place] [address] [place] ESTIMATED GLOMERULAR FILTRATION RATE 45 mL/min/1.73m??? Low >=60 [facility] Comment on above: Order Comment: Speci men Type: BLOOD SPECIMENOrdering Facility: [facility] Address: [address] [place] [address] Result Comment: Ignacia mated Glomerular Filtration Rate [...] actual GFR. Performed By: #### 2 4321-2 ####[facility] LABCLIA [id number] [place] [address] [place] Glucose [Mass/Vol] 116 mg/dL High 74-99 [facility] Comment on above: Order Comment: Cierra gabbie Type: BLOOD SPECIMENOrdering Facility: [facility] Address: [address] [place] [address] Result Comment: The [place] [employer] (ADA) provides guidance for cutoff [...] Standards of Medical Care in Diabetes 2016, [place] [employer]. Diabetes Care. 2016.39(Suppl 1). Performed By: #### 2 4321-2 ####[facility] LABCLIA [id number] [place] [address] [place] Potassium [Moles/Vol] 4.1 mmol/L Normal 3.7-5.1 [facility] Comment on above: Order Comment: Speci men Type: BLOOD SPECIMENOrdering Facility: [facility] Address: [address] [place] [address] Performed By: #### 2 4321-2 ####[facility] LABIA [id number] [place] [address] [place] Sodium [Moles/Vol] 139 mmol/L Normal 136-144 [facility] Comment on above: Order Comment: Speci men Type: BLOOD SPECIMENOrdering Facility: [facility] Address: [address] [place] [address] Performed By: #### 2 4321-2 ####[facility] LABIA [id number] [place] [address] [place] Urea nitrogen [Mass/Vol] 27 mg/dL High 9-24 [facility] Comment on above: Order Comment: Speci men Type: BLOOD SPECIMENOrdering Facility: [facility] Address: [address] [place] [address] Performed By: #### 2 4321-2 ####[facility] LABIA [id number] [place] [address] [place] CBC panel Auto (Bld)on 09-20 Erythrocyte distribution width (RBC) [Ratio] 14.2 % Normal 11.5-15.0 [facility] Comment on above: Order Comment: Speci men Type: BLOOD SPECIMENOrdering Facility: [facility] Address: [address] [place] [address] Performed By: #### 5 8410-2 ####[facility] LABIA [id number] [address] [place] [facility] Hematocrit (Bld) [Volume fraction] 27.6 % Low 39.0-51.0 [facility] Comment on above: Order Comment: Speci men Type: BLOOD SPECIMENOrdering Facility: [facility] Address: [address] [place] [address] Performed By: #### 5 8410-2 ####[facility] LABCLIA [id number] [address] [place] [facility] Hemoglobin (Bld) [Mass/Vol] 9.1 g/dL Low 13.0-17.0 [facility] Comment on above: Order Comment: Speci men Type: BLOOD SPECIMENOrdering Facility: [facility] Address: [address] [place] [address] Performed By: #### 5 8410-2 ####[facility] LABIA [id number] [address] [place] [facility] MCH (RBC) [Entitic mass] 27.8 pg Normal 26.0-34.0 [facility] Comment on above: Order Comment: Speci men Type: BLOOD SPECIMENOrdering Facility: [facility] Address: [address] [place] [address] Performed By: #### 5 8410-2 ####[facility] LABIA [id number] [address] [place] MCHC (RBC) [Mass/Vol] 33.0 g/dL Normal 30.5-36.0 [facility] Comment on above: Order Comment: Speci men Type: BLOOD SPECIMENOrdering Facility: [facility] Address: [address] [place] [address] Performed By: #### 5 8410-2 ####[facility] LABIA [id number] [place] [address] [place] MCV (RBC) [Entitic vol] 84.4 fL Normal 80.0-100.0 [facility] Comment on above: Order Comment: Speci men Type: BLOOD SPECIMENOrdering Facility: [facility] Address: [address] [place], [place] [address] Performed By: #### 5 8410-2 ####[facility] [id number] [place] [address] [place] Nucleated RBC (Bld) [#/Vol] 10*3/uL Normal <0.01 [facility] Comment on above: Order Comment: Speci men Type: BLOOD SPECIMENOrdering Facility: [facility] Address: [address] [place] [address] Performed By: #### 5 8410-2 ####[facility] [id number] [place] [address] [place] Platelet mean volume (Bld) [Entitic vol] 11.4 fL Normal 9.0-12.7 [facility] Comment on above: Order Comment: Speci men Type: BLOOD SPECIMENOrdering Facility: [facility] Address: [address] [place] [address] Performed By: #### 5 8410-2 ####[facility] [id number] [place] [address] [place] Platelets (Bld) [#/Vol] 121 10*3/uL Low 150-400 [facility] Comment on above: Order Comment: Speci men Type: BLOOD SPECIMENOrdering Facility: [facility] Address: [address] [place], [place] [address] Result Comment: Resu lts checked and verified.No clot detected. Performed By: #### 5 8410-2 ####[facility] [id number] [place] [address] [place] RBC (Bld) [#/Vol] 3.27 10*6/uL Low 4.20-6.00 [facility] Comment on above: Order Comment: Speci men Type: BLOOD SPECIMENOrdering Facility: [facility] Address: [address] Performed By: #### 5 8410-2 ####[facility] LABCLIA [id number] [place] [address] [place] WBC (Bld) [#/Vol] 19.14 10*3/uL High 3.70-11.00 [facility] Comment on above: Order Comment: Speci men Type: BLOOD SPECIMENOrdering Facility: [facility] Address: [address] Performed By: #### 5 8410-2 ####[facility] LABCLIA [id number] [place] [address] [place] CONSULT PROGon 09-20-2022 CONSULT PROG Normal [facility] CONSULT PROG Normal [facility] CONSULT PROG Normal [facility] NUTRITIONon 09-20-2022 NUTRITION Normal [facility] ARTERIAL BLOOD GASESon 09-19 Base deficit (BldA) [Moles/Vol] -2 mmol/L Normal -2-0 [facility] Comment on above: Order Comment: Speci men Type: ARTERIAL BLOOD SPECIMENOrdering Facility: [facility] Address: [address] [place] [address] Performed By: #### A LLBG ####[facility] LABIA [id number] [place] [address] [place] Body temperature 98.78 [degF] Normal [facility] Comment on above: Order Comment: Speci men Type: ARTERIAL BLOOD SPECIMENOrdering Facility: [facility] Address: [address] [place], [place] [address] Performed By: #### A LLBG ####[facility] LABCLIA [id number] [place] [address] [place] Calcium.ionized (Bld) [Mass/Vol] 1.11 mmol/L Normal 1.08-1.30 [facility] Comment on above: Order Comment: Speci men Type: ARTERIAL BLOOD SPECIMENOrdering Facility: [facility] Address: [address] [place] [address] Performed By: #### A LLBG ####[facility] LABIA [id number] [place] [address] [place] Calcium.ionized adjusted to pH 7.4 (BldA) [Moles/Vol] 1.15 mmol/L Normal 1.08-1.30 [facility] Comment on above: Order Comment: Speci men Type: ARTERIAL BLOOD SPECIMENOrdering Facility: [facility] Address: [address] [place] [address] Performed By: #### A LLBG ####[facility] LABIA [id number] [place] [address] [place] Carboxyhemoglobin (BldA) [Mass fraction] 1.3 % Normal 0.0-2.0 [facility] Comment on above: Order Comment: Speci men Type: ARTERIAL BLOOD SPECIMENOrdering Facility: [facility] Address: [address] [address] Result Comment: Carb oxyhemoglobin Reference Range for Smokers: 2.0-8.0% Performed By: #### A LLBG ####[facility] LABIA [id number] [place] [address] [place] CO2 (Bld) [Partial pressure] 28 mm Hg Low 36-46 [facility] Comment on above: Order Comment: Speci men Type: ARTERIAL BLOOD SPECIMENOrdering Facility: [facility] Address: [address] Performed By: #### A LLBG ####[facility] LABIA [id number] [place] [address] [place] CO2 [Moles/Vol] 21 mmol/L Low 22-28 [facility] Comment on above: Order Comment: Speci men Type: ARTERIAL BLOOD SPECIMENOrdering Facility: [facility] Address: [address] Performed By: #### A LLBG ####[facility] LABCLIA [id number] [place] [address] [place] CO2 adjusted to patient's actual temperature (Bld) [Partial pressure] 28 mmHg Low 36-46 [facility] Comment on above: Order Comment: Speci men Type: ARTERIAL BLOOD SPECIMENOrdering Facility: [facility] Address: [address] [place], [place] [address] Performed By: #### A LLBG ####[facility] LABCLIA [id number] [place] [address] [place] FIO2 30 % Normal [facility] Comment on above: Order Comment: Speci men Type: ARTERIAL BLOOD SPECIMENOrdering Facility: [facility] Address: [address] [place], [place] [address] Performed By: #### A LLBG ####[facility] LABCLIA [id number] [place] [address] [place] Glucose [Mass/Vol] 154 mg/dL High 60-105 [facility] Comment on above: Order Comment: Speci men Type: ARTERIAL BLOOD SPECIMENOrdering Facility: [facility] Address: [address] Performed By: #### A LLBG ####[facility] LABCLIA [id number] [place] [address] [place] HCO3 (Bld) [Moles/Vol] 20 mmol/L Low 22-26 [facility] Comment on above: Order Comment: Speci men Type: ARTERIAL BLOOD SPECIMENOrdering Facility: [facility] Address: [address] [place], [place] [address] Performed By: #### A LLBG ####[facility] LABCLIA [id number] [address] [place] Hematocrit (Bld) [Volume fraction] 29.0 % Low 39.0-51.0 [facility] Comment on above: Order Comment: Speci men Type: ARTERIAL BLOOD SPECIMENOrdering Facility: [facility] Address: [address] [place], [place] [address] Performed By: #### A LLBG ####[facility] LABIA [id number] [place] [address] [place] Hemoglobin (Bld) [Mass/Vol] 9.4 g/dL Low 13.0-17.0 [facility] Comment on above: Order Comment: Speci men Type: ARTERIAL BLOOD SPECIMENOrdering Facility: [facility] Address: [address] [place], [place] [address] Performed By: #### A LLBG ####[facility] LABCLIA [id number] [place] [address] [place] Lactate [Moles/Vol] 1.7 mmol/L Normal 0.5-2.2 [facility] Comment on above: Order Comment: Speci men Type: ARTERIAL BLOOD SPECIMENOrdering Facility: [facility] Address: [address] [place], [place] [address] Performed By: #### A LLBG ####[facility] LABIA [id number] [place] [address] [place] Methemoglobin (Bld) [Mass fraction] 1.2 % Normal 0.0-1.5 [facility] Comment on above: Order Comment: Speci men Type: ARTERIAL BLOOD SPECIMENOrdering Facility: [facility] Address: [address] [place], [place] [address] Performed By: #### A LLBG ####[facility] LABIA [id number] [place] [address] [place] O2 THERAPY Ventilator Normal [facility] Comment on above: Order Comment: Speci men Type: ARTERIAL BLOOD SPECIMENOrdering Facility: [facility] Address: [address] Performed By: #### A LLBG ####[facility] LABCLIA [id number] [place] [address] [place] Oxygen (Bld) [Partial pressure] 133 mm Hg High 85-95 [facility] Comment on above: Order Comment: Speci men Type: ARTERIAL BLOOD SPECIMENOrdering Facility: [facility] Address: [address] [place], [place] [address] Performed By: #### A LLBG ####[facility] LABCLIA [id number] [place] [address] [place] Oxygen adjusted to patient's actual temperature (Bld) [Partial pressure] 133 mmHg High 85-95 [facility] Comment on above: Order Comment: Speci men Type: ARTERIAL BLOOD SPECIMENOrdering Facility: [facility] Address: [address] [place], [place] [address] Performed By: #### A LLBG ####[facility] LABCLIA [id number] [place] [address] [place] Oxyhemoglobin (BldA) [Mass fraction] 97 % Normal 95-98 [facility] Comment on above: Order Comment: Speci men Type: ARTERIAL BLOOD SPECIMENOrdering Facility: [facility] Address: [address] [place], [place] [address] Performed By: #### A LLBG ####[facility] LABCLIA [id number] [place] [address] [place] pH (Bld) 7.47 [pH] High 7.35-7.45 [facility] Comment on above: Order Comment: Speci men Type: ARTERIAL BLOOD SPECIMENOrdering Facility: [facility] Address: [address] [place] [address] Performed By: #### A LLBG ####[facility] LABCLIA [id number] [place] [address] [place] pH adjusted to patient's actual temperature (Bld) 7.47 High 7.35-7.45 [facility] Comment on above: Order Comment: Speci men Type: ARTERIAL BLOOD SPECIMENOrdering Facility: [facility] Address: [address] Performed By: #### A LLBG ####[facility] LABCLIA [id number] [place] [address] [place] Potassium [Moles/Vol] 4.3 mmol/L Normal 3.5-5.0 [facility] Comment on above: Order Comment: Speci men Type: ARTERIAL BLOOD SPECIMENOrdering Facility: [facility] Address: [address] [place], [place] [address] Performed By: #### A LLBG ####[facility] LABCLIA [id number] [place] [address] [place] Sodium [Moles/Vol] 139 mmol/L Normal 136-144 [facility] Comment on above: Order Comment: Speci men Type: ARTERIAL BLOOD SPECIMENOrdering Facility: [facility] Address: [address] [place], [place] [address] Performed By: #### A LLBG ####[facility] LABCLIA [id number] [place] [address] [place] Base deficit (BldA) [Moles/Vol] -4 mmol/L Low -2-0 [facility] Comment on above: Order Comment: Speci men Type: ARTERIAL BLOOD SPECIMENOrdering Facility: [facility] Address: [address] Performed By: #### A LLBG ####[facility] LABCLIA [id number] [place] [address] [place] Body temperature 102.74 [degF] Normal [facility] Comment on above: Order Comment: Speci men Type: ARTERIAL BLOOD SPECIMENOrdering Facility: [facility] Address: [address] [place], [place] [address] Performed By: #### A LLBG ####[facility] LABCLIA [id number] [place] [address] [place] Calcium.ionized (Bld) [Mass/Vol] 1.09 mmol/L Normal 1.08-1.30 [facility] Comment on above: Order Comment: Speci men Type: ARTERIAL BLOOD SPECIMENOrdering Facility: [facility] Address: [address] [place], [place] [address] Performed By: #### A LLBG ####[facility] LABCLIA [id number] [place] [address] [place] Calcium.ionized adjusted to pH 7.4 (BldA) [Moles/Vol] 1.10 mmol/L Normal 1.08-1.30 [facility] Comment on above: Order Comment: Speci men Type: ARTERIAL BLOOD SPECIMENOrdering Facility: [facility] Address: [address] [place], [place] [address] Performed By: #### A LLBG ####[facility] LABCLIA [id number] [place] [address] [place] Carboxyhemoglobin (BldA) [Mass fraction] 0.6 % Normal 0.0-2.0 [facility] Comment on above: Order Comment: Speci men Type: ARTERIAL BLOOD SPECIMENOrdering Facility: [facility] Address: [address] [place], [place] [address] Result Comment: Carb oxyhemoglobin Reference Range for Smokers: 2.0-8.0% Performed By: #### A LLBG ####[facility] LABCLIA [id number] [place] [address] [place] CO2 (Bld) [Partial pressure] 31 mm Hg Low 36-46 [facility] Comment on above: Order Comment: Speci men Type: ARTERIAL BLOOD SPECIMENOrdering Facility: [facility] Address: [address] Performed By: #### A LLBG ####[facility] LABCLIA [id number] [place] [address] [place] CO2 [Moles/Vol] 21 mmol/L Low 22-28 [facility] Comment on above: Order Comment: Speci men Type: ARTERIAL BLOOD SPECIMENOrdering Facility: [facility] Address: [address] [place] [address] Performed By: #### A LLBG ####[facility] LABCLIA [id number] [place] [address] [place] CO2 adjusted to patient's actual temperature (Bld) [Partial pressure] 34 mmHg Low 36-46 [facility] Comment on above: Order Comment: Speci men Type: ARTERIAL BLOOD SPECIMENOrdering Facility: [facility] Address: [address] [place] [address] Performed By: #### A LLBG ####[facility] LABCLIA [id number] [place] [address] [place] FIO2 30 % Normal [facility] Comment on above: Order Comment: Speci men Type: ARTERIAL BLOOD SPECIMENOrdering Facility: [facility] Address: [address] [place] [address] Performed By: #### A LLBG ####[facility] LABCLIA [id number] [place] [address] [place] Glucose [Mass/Vol] 128 mg/dL High 60-105 [facility] Comment on above: Order Comment: Speci men Type: ARTERIAL BLOOD SPECIMENOrdering Facility: [facility] Address: [address] Performed By: #### A LLBG ####[facility] LABCLIA [id number] [place] [address] [place] HCO3 (Bld) [Moles/Vol] 20 mmol/L Low 22-26 [facility] Comment on above: Order Comment: Speci men Type: ARTERIAL BLOOD SPECIMENOrdering Facility: [facility] Address: [address] Performed By: #### A LLBG ####[facility] LABCLIA [id number] [place] [address] [place] Hematocrit (Bld) [Volume fraction] 30.6 % Low 39.0-51.0 [facility] Comment on above: Order Comment: Speci men Type: ARTERIAL BLOOD SPECIMENOrdering Facility: [facility] Address: [address] Performed By: #### A LLBG ####[facility] LABCLIA [id number] [place] [address] [place] Hemoglobin (Bld) [Mass/Vol] 9.9 g/dL Low 13.0-17.0 [facility] Comment on above: Order Comment: Speci men Type: ARTERIAL BLOOD SPECIMENOrdering Facility: [facility] Address: [address] [place], [place] [address] Performed By: #### A LLBG ####[facility] LABCLIA [id number] [place] [address] [place] Lactate [Moles/Vol] 2.8 mmol/L High 0.5-2.2 [facility] Comment on above: Order Comment: Speci men Type: ARTERIAL BLOOD SPECIMENOrdering Facility: [facility] Address: [address] Performed By: #### A LLBG ####[facility] LABCLIA [id number] [place] [address] [place] Methemoglobin (Bld) [Mass fraction] 1.3 % Normal 0.0-1.5 [facility] Comment on above: Order Comment: Speci men Type: ARTERIAL BLOOD SPECIMENOrdering Facility: [facility] Address: [address] Performed By: #### A LLBG ####[facility] LABCLIA [id number] [place] [id number] [place] MINUTE VENTILATION 9 L/min Normal [facility] Comment on above: Order Comment: Speci men Type: ARTERIAL BLOOD SPECIMENOrdering Facility: [facility] Address: [address] Performed By: #### A LLBG ####[facility] LABCLIA [id number] [place] [address] [place] O2 THERAPY Ventilator Normal [facility] Comment on above: Order Comment: Speci men Type: ARTERIAL BLOOD SPECIMENOrdering Facility: [facility] Address: [address] Performed By: #### A LLBG ####[facility] LABCLIA [id number] [place] [address] [place] Oxygen (Bld) [Partial pressure] 131 mm Hg High 85-95 [facility] Comment on above: Order Comment: Speci men Type: ARTERIAL BLOOD SPECIMENOrdering Facility: [facility] Address: [address] Performed By: #### A LLBG ####[facility] LABCLIA [id number] [address] [place] Oxygen adjusted to patient's actual temperature (Bld) [Partial pressure] 144 mmHg High 85-95 [facility] Comment on above: Order Comment: Speci men Type: ARTERIAL BLOOD SPECIMENOrdering Facility: [facility] Address: [address] [place] [address] Performed By: #### A LLBG ####[facility] LABIA [id number] [place] [address] [place] Oxyhemoglobin (BldA) [Mass fraction] 97 % Normal 95-98 [facility] Comment on above: Order Comment: Speci men Type: ARTERIAL BLOOD SPECIMENOrdering Facility: [facility] Address: [address] [place] [id number] Performed By: #### A LLBG ####[facility] LABCLIA [id number] [place] [address] [place] PEEP/CPAP 5 cmH2O Normal [facility] Comment on above: Order Comment: Speci men Type: ARTERIAL BLOOD SPECIMENOrdering Facility: [facility] Address: [address] [place], [place] [address] Performed By: #### A LLBG ####[facility] LABCLIA [id number] [place] [address] [place] pH (Bld) 7.42 [pH] Normal 7.35-7.45 [facility] Comment on above: Order Comment: Speci men Type: ARTERIAL BLOOD SPECIMENOrdering Facility: [facility] Address: [address] [place] [address] Performed By: #### A LLBG ####[facility] LABCLIA [id number] [address] [place] pH adjusted to patient's actual temperature (Bld) 7.39 Normal 7.35-7.45 [facility] Comment on above: Order Comment: Speci men Type: ARTERIAL BLOOD SPECIMENOrdering Facility: [facility] Address: [address] [place] [address] Performed By: #### A LLBG ####[facility] LABCLIA [id number] [place] [address] [place] Potassium [Moles/Vol] 4.1 mmol/L Normal 3.5-5.0 [facility] Comment on above: Order Comment: Speci men Type: ARTERIAL BLOOD SPECIMENOrdering Facility: [facility] Address: [address] [place], [place] [address] Performed By: #### A LLBG ####[facility] LABCLIA [id number] [place] [address] [place] Sodium [Moles/Vol] 141 mmol/L Normal 136-144 [facility] Comment on above: Order Comment: Speci men Type: ARTERIAL BLOOD SPECIMENOrdering Facility: [facility] Address: [address] [place], [place] [address] Performed By: #### A LLBG ####[facility] LABCLIA [id number] [address] [place] Base deficit (BldA) [Moles/Vol] -4 mmol/L Low -2-0 [facility] Comment on above: Order Comment: Speci men Type: ARTERIAL BLOOD SPECIMENOrdering Facility: [facility] Address: [address] [place], [place] [address] Performed By: #### A LLBG ####[facility] LABIA [id number] [address] [place] Body temperature 98.6 [degF] Normal [facility] Comment on above: Order Comment: Speci men Type: ARTERIAL BLOOD SPECIMENOrdering Facility: [facility] Address: [address] [place], [place] [address] Performed By: #### A LLBG ####[facility] LABIA [id number] [address] [place] Calcium.ionized (Bld) [Mass/Vol] 1.12 mmol/L Normal 1.08-1.30 [facility] Comment on above: Order Comment: Speci men Type: ARTERIAL BLOOD SPECIMENOrdering Facility: [facility] Address: [address] [place], [place] [address] Performed By: #### A LLBG ####[facility] LABIA [id number] [address] [place] Calcium.ionized adjusted to pH 7.4 (BldA) [Moles/Vol] 1.14 mmol/L Normal 1.08-1.30 [facility] Comment on above: Order Comment: Speci men Type: ARTERIAL BLOOD SPECIMENOrdering Facility: [facility] Address: [address] Performed By: #### A LLBG ####[facility] LABCLIA [id number] [address] [place] Carboxyhemoglobin (BldA) [Mass fraction] 0.8 % Normal 0.0-2.0 [facility] Comment on above: Order Comment: Speci men Type: ARTERIAL BLOOD SPECIMENOrdering Facility: [facility] Address: [address] Result Comment: Carb oxyhemoglobin Reference Range for Smokers: 2.0-8.0% Performed By: #### A LLBG ####[facility] LABCLIA [id number] [place] [address] [place] CO2 (Bld) [Partial pressure] 27 mm Hg Low 36-46 [facility] Comment on above: Order Comment: Speci men Type: ARTERIAL BLOOD SPECIMENOrdering Facility: [facility] Address: [address] Performed By: #### A LLBG ####[facility] LABCLIA [id number] [place] [address] [place] CO2 [Moles/Vol] 19 mmol/L Low 22-28 [facility] Comment on above: Order Comment: Speci men Type: ARTERIAL BLOOD SPECIMENOrdering Facility: [facility] Address: [address] Performed By: #### A LLBG ####[facility] LABCLIA [id number] [place] [address] [place] Glucose [Mass/Vol] 97 mg/dL Normal 60-105 [facility] Comment on above: Order Comment: Speci men Type: ARTERIAL BLOOD SPECIMENOrdering Facility: [facility] Address: [address] Performed By: #### A LLBG ####[facility] LABCLIA [id number] [place] [address] [place] HCO3 (Bld) [Moles/Vol] 18 mmol/L Low 22-26 [facility] Comment on above: Order Comment: Speci men Type: ARTERIAL BLOOD SPECIMENOrdering Facility: [facility] Address: [address] [place] [address] Performed By: #### A LLBG ####[facility] LABCLIA [id number] [place] [address] [place] Hematocrit (Bld) [Volume fraction] 31.8 % Low 39.0-51.0 [facility] Comment on above: Order Comment: Speci men Type: ARTERIAL BLOOD SPECIMENOrdering Facility: [facility] Address: [address] [place] [address] Performed By: #### A LLBG ####[facility] LABCLIA [id number] [place] [address] [place] Hemoglobin (Bld) [Mass/Vol] 10.3 g/dL Low 13.0-17.0 [facility] Comment on above: Order Comment: Speci men Type: ARTERIAL BLOOD SPECIMENOrdering Facility: [facility] Address: [address] [place] [address] Performed By: #### A LLBG ####[facility] LABCLIA [id number] [place] [address] [place] Lactate [Moles/Vol] 3.8 mmol/L High 0.5-2.2 [facility] Comment on above: Order Comment: Speci men Type: ARTERIAL BLOOD SPECIMENOrdering Facility: [facility] Address: [address] [place] [address] Performed By: #### A LLBG ####[facility] LABCLIA [id number] [place] [address] [place] LITERS 2 Liters/min Normal [facility] Comment on above: Order Comment: Speci men Type: ARTERIAL BLOOD SPECIMENOrdering Facility: [facility] Address: [address] [place] [address] Performed By: #### A LLBG ####[facility] LABCLIA [id number] [address] [place] Methemoglobin (Bld) [Mass fraction] 1.1 % Normal 0.0-1.5 [facility] Comment on above: Order Comment: Speci men Type: ARTERIAL BLOOD SPECIMENOrdering Facility: [facility] Address: [address] [place] [address] Performed By: #### A LLBG ####[facility] LABCLIA [id number] [address] [place] O2 THERAPY NC = Nasal Cannula Normal [facility] Comment on above: Order Comment: Speci men Type: ARTERIAL BLOOD SPECIMENOrdering Facility: [facility] Address: [address] [place] [id number] Performed By: #### A LLBG ####[facility] LABCLIA [id number] [place] [address] [place] Oxygen (Bld) [Partial pressure] 144 mm Hg High 85-95 [facility] Comment on above: Order Comment: Speci men Type: ARTERIAL BLOOD SPECIMENOrdering Facility: [facility] Address: [address] [place] [address] Performed By: #### A LLBG ####[facility] LABCLIA [id number] [address] [place] Oxyhemoglobin (BldA) [Mass fraction] 97 % Normal 95-98 [facility] Comment on above: Order Comment: Speci men Type: ARTERIAL BLOOD SPECIMENOrdering Facility: [facility] Address: [address] [place] [address] Performed By: #### A LLBG ####[facility] LABCLIA [id number] [place] [address] [place] pH (Bld) 7.44 [pH] Normal 7.35-7.45 [facility] Comment on above: Order Comment: Speci men Type: ARTERIAL BLOOD SPECIMENOrdering Facility: [facility] Address: [address] [place] [address] Performed By: #### A LLBG ####[facility] LABCLIA [id number] [place] [address] [place] Potassium [Moles/Vol] 3.7 mmol/L Normal 3.5-5.0 [facility] Comment on above: Order Comment: Speci men Type: ARTERIAL BLOOD SPECIMENOrdering Facility: [facility] Address: [address] [place] [address] Performed By: #### A LLBG ####[facility] LABCLIA [id number] [place] [address] [place] Sodium [Moles/Vol] 141 mmol/L Normal 136-144 [facility] [facility] Comment on above: Order Comment: Speci men Type: ARTERIAL BLOOD SPECIMENOrdering Facility: [facility] Address: [address] [place], [place] [address] Performed By: #### A LLBG ####[facility] LABCLIA [id number] [place] [address] [place] Base deficit (BldA) [Moles/Vol] -4 mmol/L Low -2-0 [facility] Comment on above: Order Comment: Speci men Type: ARTERIAL BLOOD SPECIMENOrdering Facility: [facility] Address: [address] Performed By: #### A LLBG ####[facility] LABCLIA [id number] [place] [address] [place] Body temperature 98.6 [degF] Normal [facility] Comment on above: Order Comment: Speci men Type: ARTERIAL BLOOD SPECIMENOrdering Facility: [facility] Address: [address] Performed By: #### A LLBG ####[facility] LABIA [id number] [place] [address] [place] Calcium.ionized (Bld) [Mass/Vol] 1.06 mmol/L Low 1.08-1.30 [facility] Comment on above: Order Comment: Speci men Type: ARTERIAL BLOOD SPECIMENOrdering Facility: [facility] Address: [address] [place], [place] [address] Performed By: #### A LLBG ####[facility] LABIA [id number] [place] [address] [place] Calcium.ionized adjusted to pH 7.4 (BldA) [Moles/Vol] 1.10 mmol/L Normal 1.08-1.30 [facility] Comment on above: Order Comment: Speci men Type: ARTERIAL BLOOD SPECIMENOrdering Facility: [facility] Address: [address] [place], [place] [address] Performed By: #### A LLBG ####[facility] LABIA [id number] [place] [address] [place] Carboxyhemoglobin (BldA) [Mass fraction] 1.2 % Normal 0.0-2.0 [facility] Comment on above: Order Comment: Speci men Type: ARTERIAL BLOOD SPECIMENOrdering Facility: [facility] Address: [address] [place] [address] Result Comment: Carb oxyhemoglobin Reference Range for Smokers: 2.0-8.0% Performed By: #### A LLBG ####[facility] LABIA [id number] [place] [address] [place] CO2 (Bld) [Partial pressure] 25 mm Hg Low 36-46 [facility] Comment on above: Order Comment: Speci men Type: ARTERIAL BLOOD SPECIMENOrdering Facility: [facility] Address: [address] [place], [place] [address] Performed By: #### A LLBG ####[facility] LABCLIA [id number] [place] [address] [place] CO2 [Moles/Vol] 19 mmol/L Low 22-28 [facility] Comment on above: Order Comment: Speci men Type: ARTERIAL BLOOD SPECIMENOrdering Facility: [facility] Address: [address] [place] [address] Performed By: #### A LLBG ####[facility] LABCLIA [id number] [place] [address] [place] Glucose [Mass/Vol] 96 mg/dL Normal 60-105 [facility] Comment on above: Order Comment: Speci men Type: ARTERIAL BLOOD SPECIMENOrdering Facility: [facility] Address: [address] [place] [address] Performed By: #### A LLBG ####[facility] LABCLIA [id number] [place] [address] [place] HCO3 (Bld) [Moles/Vol] 18 mmol/L Low 22-26 [facility] Comment on above: Order Comment: Speci men Type: ARTERIAL BLOOD SPECIMENOrdering Facility: [facility] Address: [address] [place] [address] Performed By: #### A LLBG ####[facility] LABCLIA [id number] [place] [address] [place] Hematocrit (Bld) [Volume fraction] 35.0 % Low 39.0-51.0 [facility] Comment on above: Order Comment: Speci men Type: ARTERIAL BLOOD SPECIMENOrdering Facility: [facility] Address: [address] [place], [place] [address] Performed By: #### A LLBG ####[facility] LABCLIA [id number] [place] [address] [place] Hemoglobin (Bld) [Mass/Vol] 11.4 g/dL Low 13.0-17.0 [facility] Comment on above: Order Comment: Speci men Type: ARTERIAL BLOOD SPECIMENOrdering Facility: [facility] Address: [address] [place], [place] [address] Performed By: #### A LLBG ####[facility] LABCLIA [id number] [place] [address] [place] Lactate [Moles/Vol] 6.2 mmol/L High 0.5-2.2 [facility] Comment on above: Order Comment: Speci men Type: ARTERIAL BLOOD SPECIMENOrdering Facility: [facility] Address: [address] Performed By: #### A LLBG ####[facility] LABCLIA [id number] [place] [address] [place] LITERS 4 Liters/min Normal [facility] Comment on above: Order Comment: Speci men Type: ARTERIAL BLOOD SPECIMENOrdering Facility: [facility] Address: [address] Performed By: #### A LLBG ####[facility] LABCLIA [id number] [place] [address] [place] Methemoglobin (Bld) [Mass fraction] 1.4 % Normal 0.0-1.5 [facility] Comment on above: Order Comment: Speci men Type: ARTERIAL BLOOD SPECIMENOrdering Facility: [facility] Address: [address] Performed By: #### A LLBG ####[facility] LABCLIA [id number] [place] [address] [place] O2 THERAPY NC = Nasal Cannula Normal [facility] Comment on above: Order Comment: Speci men Type: ARTERIAL BLOOD SPECIMENOrdering Facility: [facility] Address: [address] Performed By: #### A LLBG ####[facility] LABCLIA [id number] [place] [address] [place] Oxygen (Bld) [Partial pressure] 76 mm Hg Low 85-95 [facility] Comment on above: Order Comment: Speci men Type: ARTERIAL BLOOD SPECIMENOrdering Facility: [facility] Address: [address] [place] [address] Performed By: #### A LLBG ####[facility] LABIA [id number] [place] [address] [place] Oxyhemoglobin (BldA) [Mass fraction] 94 % Low 95-98 [facility] Comment on above: Order Comment: Speci men Type: ARTERIAL BLOOD SPECIMENOrdering Facility: [facility] Address: [address] [place] [address] Performed By: #### A LLBG ####[facility]BR[facility] [id number] [place] [address] [place] pH (Bld) 7.47 [pH] High 7.35-7.45 [facility] Comment on above: Order Comment: Speci men Type: ARTERIAL BLOOD SPECIMENOrdering Facility: [facility] Address: [address] [place], [place] [address] Performed By: #### A LLBG ####[facility]BR[facility] [id number] [place] [address] [place] Potassium [Moles/Vol] 3.9 mmol/L Normal 3.5-5.0 [facility] Comment on above: Order Comment: Speci men Type: ARTERIAL BLOOD SPECIMENOrdering Facility: [facility] Address: [address] [place], [place] [address] Performed By: #### A LLBG ####[facility] LABIA [id number] [place] [address] [place] Sodium [Moles/Vol] 142 mmol/L Normal 136-144 [facility] Comment on above: Order Comment: Speci men Type: ARTERIAL BLOOD SPECIMENOrdering Facility: [facility] Address: [address] Performed By: #### A LLBG ####[facility] LABCLIA [id number] [place] [address] [place] BRIEF OP NOTon 09-19-2022 BRIEF OP NOT Normal [facility] Bacteria Bld Culton 09-20-19 23 Bacteria identified Cx Nom (Bld) CULTURE, BLOOD: No growth 5 days Normal [facility] Comment on above: Performed By: #### 6 00-7 ####[facility] LABCLIA [id number] [place] [address] [place] Bacteria Ur Culton 3 Bacteria identified Cx Nom (U) Abnormal [facility] Comment on above: Performed By: #### 6 30-4 ####[facility] LABCLIA [id number] [place] [address] [place] CBC panel Auto (Bld)on 09-19 Erythrocyte distribution width (RBC) [Ratio] 14.5 % Normal 11.5-15.0 [facility] Comment on above: Order Comment: Speci men Type: BLOOD SPECIMENOrdering Facility: [facility] Address: [address] [place], [place] [address] Performed By: #### 5 8410-2 ####[facility] LABCLIA [id number] [place] [address] [place] Hematocrit (Bld) [Volume fraction] 36.1 % Low 39.0-51.0 [facility] Comment on above: Order Comment: Speci men Type: BLOOD SPECIMENOrdering Facility: [facility] Address: [address] [place], [place] [address] Performed By: #### 5 8410-2 ####[facility] LABCLIA [id number] [place] [address] [place] Hemoglobin (Bld) [Mass/Vol] 11.3 g/dL Low 13.0-17.0 [facility] Comment on above: Order Comment: Speci men Type: BLOOD SPECIMENOrdering Facility: [facility] Address: [address] [place], [place] [address] Performed By: #### 5 8410-2 ####[facility] LABCLIA [id number] [address] [place] MCH (RBC) [Entitic mass] 27.8 pg Normal 26.0-34.0 [facility] Comment on above: Order Comment: Speci men Type: BLOOD SPECIMENOrdering Facility: [facility] Address: [address] [place], [place] [address] Performed By: #### 5 8410-2 ####[facility] LABCLIA [id number] [address] [place] MCHC (RBC) [Mass/Vol] 31.3 g/dL Normal 30.5-36.0 [facility] Comment on above: Order Comment: Speci men Type: BLOOD SPECIMENOrdering Facility: [facility] Address: [address] [place], [place] [address] Performed By: #### 5 8410-2 ####[facility] LABCLIA [id number] [address] [place] MCV (RBC) [Entitic vol] 88.9 fL Normal 80.0-100.0 [facility] Comment on above: Order Comment: Speci men Type: BLOOD SPECIMENOrdering Facility: [facility] Address: [address] [place], [place] [address] Performed By: #### 5 8410-2 ####[facility] LABCLIA [id number] [address] [place] Nucleated RBC (Bld) [#/Vol] 10*3/uL Normal <0.01 [facility] Comment on above: Order Comment: Speci men Type: BLOOD SPECIMENOrdering Facility: [facility] Address: [address] Performed By: #### 5 8410-2 ####[facility] LABIA [id number] [place] [address] [place] Platelet mean volume (Bld) [Entitic vol] 10.0 fL Normal 9.0-12.7 [facility] Comment on above: Order Comment: Speci men Type: BLOOD SPECIMENOrdering Facility: [facility] Address: [address] [place], [place] [address] Performed By: #### 5 8410-2 ####[facility] LABIA [id number] [place] [address] [place] Platelets (Bld) [#/Vol] 164 10*3/uL Normal 150-400 [facility] Comment on above: Order Comment: Speci men Type: BLOOD SPECIMENOrdering Facility: [facility] Address: [address] [place], [place] [address] Performed By: #### 5 8410-2 ####[facility] LABIA [id number] [place] [address] [place] RBC (Bld) [#/Vol] 4.06 10*6/uL Low 4.20-6.00 [facility] Comment on above: Order Comment: Speci men Type: BLOOD SPECIMENOrdering Facility: [facility] Address: [address] [place], [place] [address] Performed By: #### 5 8410-2 ####[facility] LABIA [id number] [place] [address] [place] WBC (Bld) [#/Vol] 5.21 10*3/uL Normal 3.70-11.00 [facility] Comment on above: Order Comment: Speci men Type: BLOOD SPECIMENOrdering Facility: [facility] Address: [address] [place], [place] [address] Performed By: #### 5 8410-2 ####[facility] LABCLIA [id number] [place] [id number] [place] CK SerPl-cCncon 09-19-2022 CK [Catalytic activity/Vol] 1838 U/L High 51-298 [facility] Comment on above: Order Comment: Speci men Type: BLOOD SPECIMENOrdering Facility: [facility] Address: [address] Performed By: #### 2 4323-8, 2777-1, 2156-08, ####[facility] LABCLIA [id number] [place] [address] [place] CONSULTon 09-19-2022 CONSULT Normal [facility] CONSULT Normal [facility] Comprehensive metabolic 2000 panelon 09-19-2022 Albumin [Mass/Vol] 3.4 g/dL Low 3.9-4.9 [facility] Comment on above: Order Comment: Speci men Type: BLOOD SPECIMENOrdering Facility: [facility] Address: [address] Performed By: #### 2 4323-8, 2776-1, 2156-08, ####[facility] LABIA [id number] [place] [address] [place] ALP [Catalytic activity/Vol] 90 U/L Normal 38-113 [facility] Comment on above: Order Comment: Speci men Type: BLOOD SPECIMENOrdering Facility: [facility] Address: [address] [place] [address] Performed By: #### 2 4323-8, 2776-1, 2156-08, ####[facility] LABCLIA [id number] [place] [id number] [place] ALT [Catalytic activity/Vol] 11 U/L Normal 10-54 [facility] Comment on above: Order Comment: Speci men Type: BLOOD SPECIMENOrdering Facility: [facility] Address: [address] [place], [place] [address] Performed By: #### 2 4323-8, 2777-1, 2156-08, ####[facility] LABCLIA [id number] [place] [address] [place] Anion gap [Moles/Vol] 21 mmol/L High 9-18 [facility] Comment on above: Order Comment: Speci men Type: BLOOD SPECIMENOrdering Facility: [facility] Address: [address] [place], [place] [address] Performed By: #### 2 4323-8, 2776-1, 2156-08, ####[facility] LABCLIA [id number] [place] [address] [place] AST [Catalytic activity/Vol] 29 U/L Normal 14-40 [facility] Comment on above: Order Comment: Speci men Type: BLOOD SPECIMENOrdering Facility: [facility] Address: [address] [place], [place] [address] Performed By: #### 2 4323-8, 2776-1, 2156-08, ####[facility] LABCLIA [id number] [place] [address] [place] Bilirubin [Mass/Vol] 0.6 mg/dL Normal 0.2-1.3 [facility] Comment on above: Order Comment: Speci men Type: BLOOD SPECIMENOrdering Facility: [facility] Address: [address] [place] [address] Performed By: #### 2 4323-8, 2776-03, 2156-08, ####[facility] LABCLIA [id number] [address] [address] [place] Calcium [Mass/Vol] 8.5 mg/dL Normal 8.5-10.2 [facility] Comment on above: Order Comment: Speci men Type: BLOOD SPECIMENOrdering Facility: [facility] Address: [address] [place] [id number] Performed By: #### 2 4323-8, 2777-1, 2156-08, ####[facility] LABCLIA [id number] [address] [address] [place] Chloride [Moles/Vol] 105 mmol/L Normal 97-105 [facility] Comment on above: Order Comment: Speci men Type: BLOOD SPECIMENOrdering Facility: [facility] Address: [address] [place], [place] [address] Performed By: #### 2 4323-8, 2777-, 2156-08, ####[facility] LABCLIA [id number] [place] [address] [place] CO2 [Moles/Vol] 14 mmol/L Low 22-30 [facility] Comment on above: Order Comment: Speci men Type: BLOOD SPECIMENOrdering Facility: [facility] Address: [address] [place], [place] [address] Performed By: #### 2 4323-8, 2777-, 2156-08, ####[facility] LABCLIA [id number] [place] [address] [place] Creatinine [Mass/Vol] 2.45 mg/dL High 0.73-1.22 [facility] Comment on above: Order Comment: Speci men Type: BLOOD SPECIMENOrdering Facility: [facility] Address: [address] [place] [address] Performed By: #### 2 4323-8, 277-, 2156-08, ####[facility] LABCLIA [id number] [address] [address] [place] ESTIMATED GLOMERULAR FILTRATION RATE 28 mL/min/1.73m??? Low >=60 [facility] Comment on above: Order Comment: Cierra cartwright Type: BLOOD SPECIMENOrdering Facility: [facility] Address: [address] [place], [place] [address] Result Comment: Ignacia mated Glomerular Filtration Rate [...] Performed By: #### 2 4323-8, 2777-1, 2156-08, ####[facility] LABCLIA [id number] [place] [id number] [place] Glucose [Mass/Vol] 86 mg/dL Normal 74-99 [facility] Comment on above: Order Comment: Cierra cartwright Type: BLOOD SPECIMENOrdering Facility: [facility] Address: [address] [place], [place] [address] Result Comment: The [place] [employer] (ADA) provides guidance for cutoff [...] Standards of Medical Care in Diabetes 2016, [place] [employer]. Diabetes Care. 2016.39(Suppl 1). Performed By: #### 2 4323-8, 2777-1, 2156-08, ####[facility] LABCLIA [id number] [address] [address] [place] Potassium [Moles/Vol] 4.7 mmol/L Normal 3.7-5.1 [facility] Comment on above: Order Comment: Speci men Type: BLOOD SPECIMENOrdering Facility: [facility] Address: [address] [place] [address] Performed By: #### 2 4323-8, 2776-1, 2156-08, ####[facility] LABCLIA [id number] [address] [address] [place] Protein [Mass/Vol] 6.7 g/dL Normal 6.3-8.0 [facility] Comment on above: Order Comment: Speci men Type: BLOOD SPECIMENOrdering Facility: [facility] Address: [address] [place] [address] Performed By: #### 2 4323-8, 277-, 2156-08, ####[facility] LABIA [id number] [place] [address] [place] Sodium [Moles/Vol] 140 mmol/L Normal 136-144 [facility] Comment on above: Order Comment: Speci men Type: BLOOD SPECIMENOrdering Facility: [facility] Address: [address] [place] [address] Performed By: #### 2 4323-8, 2776-03, 2156-08, ####[facility] LABIA [id number] [place] [address] [place] Urea nitrogen [Mass/Vol] 28 mg/dL High 9-24 [facility] Comment on above: Order Comment: Speci men Type: BLOOD SPECIMENOrdering Facility: [facility] Address: [address] [place] [id number] Performed By: #### 2 4323-8, 2776-, 2156-08, ####[facility] LABIA [id number] [place] [id number] [place] ECG COMPLETEon 09-19-2022 ECG COMPLETE Normal [facility] Gas and Carbon monoxide pane l (BldV)on 09-19-2022 BASE DEFICIT, VENOUS -12 mmol/L Low -2-0 [facility] Comment on above: Order Comment: Speci men Type: VENOUS BLOOD SPECIMENOrdering Facility: [facility] Address: [address] [place] [address] Performed By: #### 2 4344-4 ####[facility] LABCLIA [id number] [place] [address] [place] Body temperature 98.6 [degF] Normal [facility] Comment on above: Order Comment: Speci men Type: VENOUS BLOOD SPECIMENOrdering Facility: [facility] Address: [address] [place] [address] Performed By: #### 2 4344-4 ####[facility] LABIA [id number] [place] [address] [place] Calcium.ionized (Bld) [Mass/Vol] 1.20 mmol/L Normal 1.08-1.30 [facility] Comment on above: Order Comment: Speci men Type: VENOUS BLOOD SPECIMENOrdering Facility: [facility] Address: [address] [place] [address] Performed By: #### 2 4344-4 ####[facility] LABIA [id number] [place] [address] [place] Calcium.ionized adjusted to pH 7.4 (BldA) [Moles/Vol] Normal [facility] Comment on above: Order Comment: Speci men Type: VENOUS BLOOD SPECIMENOrdering Facility: [facility] Address: [address] [place] [address] Result Comment: Aletha ured pH is <7.20. Unable to report normalized Calcium. Performed By: #### 2 4344-4 ####[facility] LABIA [id number] [place] [address] [place] Carboxyhemoglobin (BldV) [Mass fraction] 1.0 % Normal 0.0-2.0 [facility] Comment on above: Order Comment: Speci men Type: VENOUS BLOOD SPECIMENOrdering Facility: [facility] Address: [address] Result Comment: Carb oxyhemoglobin Reference Range for Smokers: 2.0-8.0% Performed By: #### 2 4344-4 ####[facility] LABCLIA [id number] [address] [facility] CO2 (BldV) [Partial pressure] 48 mm[Hg] Normal 42-55 [facility] Comment on above: Order Comment: Speci men Type: VENOUS BLOOD SPECIMENOrdering Facility: [facility] Address: [address] [place] [address] Performed By: #### 2 4344-4 ####[facility] LABCLIA [id number] [address] [place] CO2 [Moles/Vol] 18 mmol/L Low 25-29 [facility] Comment on above: Order Comment: Speci men Type: VENOUS BLOOD SPECIMENOrdering Facility: [facility] Address: [address] Performed By: #### 2 4344-4 ####[facility] LABCLIA [id number] [address] [place] COMMENTS Critical Value: pH, pHTC Urgent Value: LACT Normal [facility] Comment on above: Order Comment: Speci men Type: VENOUS BLOOD SPECIMENOrdering Facility: [facility] Address: [address] Performed By: #### 2 4344-4 ####[facility] LABCLIA [id number] [address] [place] DATE/TIME NOTIFIED [id number] AM Normal [facility] [facility] Comment on above: Order Comment: Speci men Type: VENOUS BLOOD SPECIMENOrdering Facility: [facility] Address: [address] Performed By: #### 2 4344-4 ####[facility] LABCLIA [id number] [place] [address] [place] Glucose [Mass/Vol] 108 mg/dL High 60-105 [facility] Comment on above: Order Comment: Speci men Type: VENOUS BLOOD SPECIMENOrdering Facility: [facility] Address: [address] [place] [address] Performed By: #### 2 4344-4 ####[facility] LABCLIA [id number] [place] [address] [place] HCO3 (Bld) [Moles/Vol] 16 mmol/L Low 24-28 [facility] Comment on above: Order Comment: Speci men Type: VENOUS BLOOD SPECIMENOrdering Facility: [facility] Address: [address] [place] [address] Performed By: #### 2 4344-4 ####[facility] LABIA [id number] [place] [address] [place] Hematocrit (Bld) [Volume fraction] 36.9 % Low 39.0-51.0 [facility] Comment on above: Order Comment: Speci men Type: VENOUS BLOOD SPECIMENOrdering Facility: [facility] Address: [address] [place] [address] Performed By: #### 2 4344-4 ####[facility] LABCLIA [id number] [place] [address] [place] Hemoglobin (Bld) [Mass/Vol] 12.0 g/dL Low 13.0-17.0 [facility] Comment on above: Order Comment: Speci men Type: VENOUS BLOOD SPECIMENOrdering Facility: [facility] Address: [address] [place] [address] Performed By: #### 2 4344-4 ####[facility] LABIA [id number] [place] [address] [address] [place] Lactate [Moles/Vol] 11.2 mmol/L High 0.5-2.2 [facility] Comment on above: Order Comment: Speci men Type: VENOUS BLOOD SPECIMENOrdering Facility: [facility] Address: [address] [place] [address] Performed By: #### 2 4344-4 ####[facility] LABCLIA [id number] [address] [place] Methemoglobin (Bld) [Mass fraction] 0.9 % Normal 0.0-1.5 [facility] Comment on above: Order Comment: Speci men Type: VENOUS BLOOD SPECIMENOrdering Facility: [facility] Address: [address] [place] [address] Performed By: #### 2 4344-4 ####[facility] LABCLIA [id number] [address] [place] NOTIFIED WHOM Rosy Curtis RN G62, Analia Lizama Normal [facility] Comment on above: Order Comment: Speci men Type: VENOUS BLOOD SPECIMENOrdering Facility: [facility] Address: [address] [place], [place] [address] Performed By: #### 2 4344-4 ####[facility] LABCLIA [id number] [address] [place] O2 THERAPY RA=Room Air Normal [facility] Comment on above: Order Comment: Speci men Type: VENOUS BLOOD SPECIMENOrdering Facility: [facility] Address: [address] [place] [address] Performed By: #### 2 4344-4 ####[facility] LABCLIA [id number] [place] [address] [place] Oxygen (BldV) [Partial pressure] 40 mm[Hg] Normal 35-45 [facility] Comment on above: Order Comment: Speci men Type: VENOUS BLOOD SPECIMENOrdering Facility: [facility] Address: [address] [place], [place] [address] Performed By: #### 2 4344-4 ####[facility] LABCLIA [id number] [place] [address] [place] Oxygen saturation in Venous blood 56 % Low 60-85 [facility] Comment on above: Order Comment: Speci men Type: VENOUS BLOOD SPECIMENOrdering Facility: [facility] Address: [address] [place], [place] [address] Performed By: #### 2 4344-4 ####[facility] LABCLIA [id number] [place] [address] [place] Oxyhemoglobin (BldV) [Mass fraction] 55 % Low 60-85 [facility] Comment on above: Order Comment: Speci men Type: VENOUS BLOOD SPECIMENOrdering Facility: [facility] Address: [address] [place] [address] Performed By: #### 2 4344-4 ####[facility] LABIA [id number] [place] [address] [place] pH (BldV) 7.16 [pH] Critically low 7.32-7.42 [facility] Comment on above: Order Comment: Speci men Type: VENOUS BLOOD SPECIMENOrdering Facility: [facility] Address: [address] [place], [place] [address] Performed By: #### 2 4344-4 ####[facility] LABIA [id number] [place] [address] [place] Potassium [Moles/Vol] 5.8 mmol/L High 3.5-5.0 [facility] Comment on above: Order Comment: Speci men Type: VENOUS BLOOD SPECIMENOrdering Facility: [facility] Address: [address] [place], [place] [address] Performed By: #### 2 4344-4 ####[facility] LABIA [id number] [place] [address] [place] Sodium [Moles/Vol] 141 mmol/L Normal 136-144 [facility] Comment on above: Order Comment: Speci men Type: VENOUS BLOOD SPECIMENOrdering Facility: [facility] Address: [address] [id number] Performed By: #### 2 4344-4 ####[facility] LABCLIA [id number] [place] [address] [place] HISTORY PHYSICALon HISTORY PHYSICAL Normal [facility] HISTORY PHYSICAL Normal [facility] IR NEPHROSTOMY TUBE PLACEon 09-19-[address] Normal [facility] Magnesium SerPl-mCncon 09-19 Magnesium [Mass/Vol] 1.4 mg/dL Low 1.7-2.3 [facility] Comment on above: Order Comment: Speci men Type: BLOOD SPECIMENOrdering Facility: [facility] Address: [place] [id number] Performed By: #### 2 4323-8, 2777-1, 2157-6, 65549-8 ####[facility] LABIA [id number] [place] [address] [place] NURSING PROGon 09-19-2022 NURSING PROG Normal [facility] PT EDon 09-19-2022 PT ED Normal [facility] PT panel Coag (PPP)on 2022 INR Coag (PPP) [Relative time] 1.3 {INR} Normal 0.9-1.3 [facility] Comment on above: Order Comment: Speci men Type: BLOOD SPECIMENOrdering Facility: [facility] Address: [place] [phone] Result Comment: Kendra min K Antagonist (VKA) Therapeutic Range: INR 2 to 3 (Target INR of 2.5)Note: For patients treated with VKA drugs, such as warfarin, the [place] [employer] 2012 Guideline recommends [...] al. Chest 2012, 141:7S-47SNishimura RA, et al. [facility] 2017, 70: 252-289 Performed By: #### 3 4528-0 ####[facility] [id number] [place] [address] [place] PT Coag (PPP) [Time] 13.7 s High 9.7-13.0 [facility] Comment on above: Order Comment: Speci men Type: BLOOD SPECIMENOrdering Facility: [facility] Address: [address] [place] [address] Performed By: #### 3 4528-0 ####[facility] [id number] [place] [address] [place] Phosphate SerPl-mCncon 09-19 Phosphate [Mass/Vol] 5.4 mg/dL High 2.7-4.8 [facility] Comment on above: Order Comment: Cierra cartwright Type: BLOOD SPECIMENOrdering Facility: [facility] Address: [address] [place] [address] Performed By: #### 2 4323-8, 2777-1, 2157-6, 15778-1 ####[facility] [id number] [place] [address] [place] SARS-CoV-2 RNA Resp Ql ROSSANA+p robeon 09-19-2022 SARS-CoV-2 (COVID-19) RNA ROSSANA+probe Ql (Resp) COVID 19 RESULT: Not detected The method used is RT-PCR or an equivalent NAAT method. Reference Range(the expected result in uninfected individuals): Not detected Normal [facility] Comment on above: Performed By: #### 9 4500-6 ####[facility] LABCLIA [id number] [address] [place] STAPH AUREUS PCRon S. aureus and MRSA panel ROSSANA+probe (Nose) Abnormal Negative [facility] Comment on above: Order Comment: Speci men Type: SWAB OF INTERNAL NOSEOrdering Facility: [facility] Address: [address] [place] [address] Result Comment: Posi tive for Staphylococcus aureus by PCR.Negative for MRSA by PCR Performed By: #### S APCR ####[facility] LABIA [id number] [place] [address] [place] Urinalysis complete panel (U )on 09-19-2022 Bacteria LM.HPF (Urine sed) [#/Area] Moderate Abnormal None Seen [facility] Comment on above: Order Comment: Speci men Type: URINE SPECIMENOrdering Facility: [facility] Address: [address] [place] [address] Performed By: #### 2 4356-8 ####[facility] LABCLIA [id number] [place] [address] [place] Bilirubin Ql (U) Negative Normal Negative [facility] Comment on above: Order Comment: Speci men Type: URINE SPECIMENOrdering Facility: [facility] Address: [address] [place] [address] Performed By: #### 2 4356-8 ####[facility] LABIA [id number] [place] [address] [place] Clarity (Unsp spec) Turbid Abnormal Clear [facility] Comment on above: Order Comment: Speci men Type: URINE SPECIMENOrdering Facility: [facility] Address: [address] [place] [address] Performed By: #### 2 4356-8 ####[facility] LABCLIA [id number] [place] [address] [place] Color (U) Yellow Normal Yellow [facility] Comment on above: Order Comment: Speci men Type: URINE SPECIMENOrdering Facility: [facility] Address: [address] [place] [address] Performed By: #### 2 4356-8 ####[facility] LABCLIA [id number] [place] [address] [place] Glucose Test strip (U) [Mass/Vol] Negative Normal Trace, Negative [facility] Comment on above: Order Comment: Speci men Type: URINE SPECIMENOrdering Facility: [facility] Address: [address] [place] [address] Performed By: #### 2 4356-8 ####[facility] LABCLIA [id number] [place] [address] [place] Hemoglobin Ql (U) 3+ Abnormal Negative, Trace [facility] Comment on above: Order Comment: Speci men Type: URINE SPECIMENOrdering Facility: [facility] Address: [address] [place], [place] [address] Performed By: #### 2 4356-8 ####[facility] LABIA [id number] [place] [address] [place] Ketones Ql (U) Negative Normal Trace, Negative [facility] Comment on above: Order Comment: Speci men Type: URINE SPECIMENOrdering Facility: [facility] Address: [address] Performed By: #### 2 4356-8 ####[facility] LABCLIA [id number] [place] [address] [place] Leukocyte esterase Test strip Ql (U) 500 Arnulfo/uL Abnormal Negative, 25 Arnulfo/uL [facility] Comment on above: Order Comment: Speci men Type: URINE SPECIMENOrdering Facility: [facility] Address: [address] Performed By: #### 2 4356-8 ####[facility] LABCLIA [id number] [place] [address] [place] Nitrite Ql (U) 2+ Abnormal Negative [facility] Comment on above: Order Comment: Speci men Type: URINE SPECIMENOrdering Facility: [facility] Address: [address] [place] [address] Performed By: #### 2 4356-8 ####[facility] LABIA [id number] [place] [address] [place] pH (U) 6.0 [pH] Normal 5.0-8.0 [facility] Comment on above: Order Comment: Speci men Type: URINE SPECIMENOrdering Facility: [facility] Address: [address] [place] [address] Performed By: #### 2 4356-8 ####[facility] LABIA [id number] [place] [address] [place] Protein (U) [Mass/Vol] 2+ Abnormal Trace , Negative [facility] Comment on above: Order Comment: Speci men Type: URINE SPECIMENOrdering Facility: [facility] Address: [address] [place], [place] [address] Performed By: #### 2 4356-8 ####[facility] LABCLIA [id number] [place] [address] [place] RBC LM.HPF (Urine sed) [#/Area] /[HPF] Abnormal 0-3 /HPF [facility] Comment on above: Order Comment: Speci men Type: URINE SPECIMENOrdering Facility: [facility] Address: [address] [place], [place] [address] Performed By: #### 2 4356-8 ####[facility] LABCLIA [id number] [place] [address] [place] Specific gravity (U) [Rel density] 1.015 Normal 1.005-1.030 [facility] Comment on above: Order Comment: Speci men Type: URINE SPECIMENOrdering Facility: [facility] Address: [address] [place] [address] Performed By: #### 2 4356-8 ####[facility] LABCLIA [id number] [place] [address] [place] Urobilinogen Ql (U) Negative Normal Negative [facility] Comment on above: Order Comment: Speci men Type: URINE SPECIMENOrdering Facility: [facility] Address: [address] [place] [address] Performed By: #### 2 4356-8 ####[facility] LABIA [id number] [place] [address] [place] WBC LM.HPF (Urine sed) [#/Area] /[HPF] Abnormal 0-5 /HPF [facility] Comment on above: Order Comment: Speci men Type: URINE SPECIMENOrdering Facility: [facility] Address: [address] [place], [place] [address] Performed By: #### 2 4356-8 ####[facility] LABIA [id number] [place] [address] [place] Urinalysis complete pnl Uron 09-19-2022 Urinalysis complete panel (U) Normal [facility] Comment on above: Order Comment: Speci men Type: URINE SPECIMENOrdering Facility: [facility] Address: [address] [place], [place] [address] Performed By: #### 2 4356-8 ####[facility] LABCLIA [id number] [place] [address] [place] XR ABDOMEN 1V SUPINEon 09-19 XR ABDOMEN 1V SUPINE Normal [facility] XR CHEST 1V FRONTAL PORTon 0 09-19-2022 XR CHEST 1V FRONTAL PORT Normal [facility] XR CHEST 1V FRONTAL PORT Normal [facility] CNOVon 09-01-2022 CNOV Normal [facility] CNPNon 08-17-2022 CNPN Normal [facility] CASE MANAGEMon 08-13-2022 CASE MANAGEM Normal [facility] CNPNon 08-13-2022 CNPN Normal [facility] CASE MANAGEMon 08-12-2022 CASE MANAGEM Normal [facility] CONSULT PROGon 08-12-2022 CONSULT PROG Normal [facility] Basic metabolic 2000 panelon 08-11-2022 Anion gap [Moles/Vol] 10 mmol/L Normal 9-18 [facility] Comment on above: Order Comment: Speci men Type: BLOOD SPECIMENOrdering Facility: [facility] Address: [address] [place] [address] Performed By: #### 2 4321-2 ####[facility] LABCLIA [id number] [place] [address] [place] Calcium [Mass/Vol] 8.7 mg/dL Normal 8.5-10.2 [facility] Comment on above: Order Comment: Speci men Type: BLOOD SPECIMENOrdering Facility: [facility] Address: [address] [place] [address] Performed By: #### 2 4321-2 ####[facility] LABCLIA [id number] [place] [address] [place] Chloride [Moles/Vol] 107 mmol/L High 97-105 [facility] Comment on above: Order Comment: Speci men Type: BLOOD SPECIMENOrdering Facility: [facility] Address: [address] [place] [address] Performed By: #### 2 4321-2 ####[facility] LABCLIA [id number] [place] [address] [place] CO2 [Moles/Vol] 23 mmol/L Normal 22-30 [facility] Comment on above: Order Comment: Speci men Type: BLOOD SPECIMENOrdering Facility: [facility] Address: [address] [place] [address] Performed By: #### 2 4321-2 ####[facility] LABIA [id number] [address] STATES OF [facility] Creatinine [Mass/Vol] 0.73 mg/dL Normal 0.73-1.22 [facility] Comment on above: Order Comment: Speci men Type: BLOOD SPECIMENOrdering Facility: [facility] Address: [address] [place] [address] Performed By: #### 2 4321-2 ####[facility] LABIA [id number] [address] [place] ESTIMATED GLOMERULAR FILTRATION RATE 100 mL/min/1.73m??? Normal >=60 [facility] Comment on above: Order Comment: Speci men Type: BLOOD SPECIMENOrdering Facility: [facility] Address: [address] [place] [address] Result Comment: Ignacia mated Glomerular Filtration Rate [...] actual GFR. Performed By: #### 2 4321-2 ####[facility] LABIA [id number] [place] [address] [place] Glucose [Mass/Vol] 74 mg/dL Normal 74-99 [facility] Comment on above: Order Comment: Speci men Type: BLOOD SPECIMENOrdering Facility: [facility] Address: [address] [place] [address] Result Comment: The [place] [employer] (ADA) provides guidance for cutoff [...] Standards of Medical Care in Diabetes 2016, [place] [employer]. Diabetes Care. 2016.39(Suppl 1). Performed By: #### 2 4321-2 ####[facility] LABCLIA [id number] [place] [address] [place] Potassium [Moles/Vol] 4.0 mmol/L Normal 3.7-5.1 [facility] Comment on above: Order Comment: Speci men Type: BLOOD SPECIMENOrdering Facility: [facility] Address: [address] [place] [address] Performed By: #### 2 4321-2 ####[facility] LABIA [id number] [place] [address] [place] Sodium [Moles/Vol] 140 mmol/L Normal 136-144 [facility] Comment on above: Order Comment: Speci men Type: BLOOD SPECIMENOrdering Facility: [facility] Address: [address] [place] [address] Performed By: #### 2 4321-2 ####[facility] LABIA [id number] [place] [address] [place] Urea nitrogen [Mass/Vol] 7 mg/dL Low 9-24 [facility] Comment on above: Order Comment: Speci men Type: BLOOD SPECIMENOrdering Facility: [facility] Address: [address] [place] [address] Performed By: #### 2 4321-2 ####[facility] LABIA [id number] [place] [address] [place] CBC panel Auto (Bld)on 08-11 Erythrocyte distribution width (RBC) [Ratio] 13.6 % Normal 11.5-15.0 [facility] Comment on above: Order Comment: Speci men Type: BLOOD SPECIMENOrdering Facility: [facility] Address: [address] [place] [address] Performed By: #### 5 8410-2 ####[facility] LABCLIA [id number] [address] [place] Hematocrit (Bld) [Volume fraction] 28.0 % Low 39.0-51.0 [facility] Comment on above: Order Comment: Speci men Type: BLOOD SPECIMENOrdering Facility: [facility] Address: [address] [place] [address] Performed By: #### 5 8410-2 ####[facility] LABCLIA [id number] [address] [place] Hemoglobin (Bld) [Mass/Vol] 9.1 g/dL Low 13.0-17.0 [facility] Comment on above: Order Comment: Speci men Type: BLOOD SPECIMENOrdering Facility: [facility] Address: [address] [place] [address] Performed By: #### 5 8410-2 ####[facility] LABCLIA [id number] [place] [address] [place] MCH (RBC) [Entitic mass] 28.3 pg Normal 26.0-34.0 [facility] Comment on above: Order Comment: Speci men Type: BLOOD SPECIMENOrdering Facility: [facility] Address: [address] [place] [address] Performed By: #### 5 8410-2 ####[facility] LABCLIA [id number] [address] [place] MCHC (RBC) [Mass/Vol] 32.5 g/dL Normal 30.5-36.0 [facility] Comment on above: Order Comment: Speci men Type: BLOOD SPECIMENOrdering Facility: [facility] Address: [address] Performed By: #### 5 8410-2 ####[facility] [id number] [address] MCV (RBC) [Entitic vol] 87.2 fL Normal 80.0-100.0 [facility] Comment on above: Order Comment: Speci men Type: BLOOD SPECIMENOrdering Facility: [facility] Address: [address] Performed By: #### 5 8410-2 ####[facility] [id number] [address] [place] Nucleated RBC (Bld) [#/Vol] 10*3/uL Normal <0.01 [facility] Comment on above: Order Comment: Speci men Type: BLOOD SPECIMENOrdering Facility: [facility] Address: [address] Performed By: #### 5 8410-2 ####[facility] [id number] [address] [place] Platelet mean volume (Bld) [Entitic vol] 9.5 fL Normal 9.0-12.7 [facility] Comment on above: Order Comment: Speci men Type: BLOOD SPECIMENOrdering Facility: [facility] Address: [address] [place] [address] Performed By: #### 5 8410-2 ####[facility] [id number] [place] [address] [place] Platelets (Bld) [#/Vol] 251 10*3/uL Normal 150-400 [facility] Comment on above: Order Comment: Speci men Type: BLOOD SPECIMENOrdering Facility: [facility] Address: [address] [place] [address] Performed By: #### 5 8410-2 ####[facility] LABIA [id number] [place] [address] [place] RBC (Bld) [#/Vol] 3.21 10*6/uL Low 4.20-6.00 [facility] Comment on above: Order Comment: Speci men Type: BLOOD SPECIMENOrdering Facility: [facility] Address: [address] Performed By: #### 5 8410-2 ####[facility] LABIA [id number] [place] [address] [place] WBC (Bld) [#/Vol] 4.70 10*3/uL Normal 3.70-11.00 [facility] [facility] Comment on above: Order Comment: Speci men Type: BLOOD SPECIMENOrdering Facility: [facility] Address: [address] Performed By: #### 5 8410-2 ####[facility] [id number] [place] [address] [place] Basic metabolic 2000 panelon 08-10-2022 Anion gap [Moles/Vol] 11 mmol/L Normal 9-18 [facility] Comment on above: Order Comment: Speci men Type: BLOOD SPECIMENOrdering Facility: [facility] Address: [address] Performed By: #### 2 4321-2 ####[facility] [id number] [place] [address] [place] Calcium [Mass/Vol] 9.1 mg/dL Normal 8.5-10.2 [facility] Comment on above: Order Comment: Speci men Type: BLOOD SPECIMENOrdering Facility: [facility] Address: [address] Performed By: #### 2 4321-2 ####[facility] [id number] [address] [place] Chloride [Moles/Vol] 102 mmol/L Normal 97-105 [facility] Comment on above: Order Comment: Speci men Type: BLOOD SPECIMENOrdering Facility: [facility] Address: [address] [place] [address] Performed By: #### 2 4321-2 ####[facility] LABCLIA [id number] [address] [place] CO2 [Moles/Vol] 22 mmol/L Normal 22-30 [facility] Comment on above: Order Comment: Speci men Type: BLOOD SPECIMENOrdering Facility: [facility] Address: [address] [place] [address] Performed By: #### 2 4321-2 ####[facility] LABIA [id number] [address] STATES OF [facility] Creatinine [Mass/Vol] 0.67 mg/dL Low 0.73-1.22 [facility] Comment on above: Order Comment: Speci men Type: BLOOD SPECIMENOrdering Facility: [facility] Address: [address] [place] [address] Performed By: #### 2 4321-2 ####[facility] LABIA [id number] [address] OF [facility] ESTIMATED GLOMERULAR FILTRATION RATE 102 mL/min/1.73m??? Normal >=60 [facility] Comment on above: Order Comment: Speci men Type: BLOOD SPECIMENOrdering Facility: [facility] Address: [address] [place] [address] Result Comment: Ignacia mated Glomerular Filtration Rate [...] actual GFR. Performed By: #### 2 4321-2 ####[facility] LABCLIA [id number] [place] [address] [place] Glucose [Mass/Vol] 128 mg/dL High 74-99 [facility] Comment on above: Order Comment: Speci men Type: BLOOD SPECIMENOrdering Facility: [facility] Address: [address] [address] Result Comment: The [place] [employer] (ADA) provides guidance for cutoff [...] Standards of Medical Care in Diabetes 2016, [place] [employer]. Diabetes Care. 2016.39(Suppl 1). Performed By: #### 2 4321-2 ####[facility] LABCLIA [id number] [place] [address] [place] Potassium [Moles/Vol] 3.8 mmol/L Normal 3.7-5.1 [facility] Comment on above: Order Comment: Speci men Type: BLOOD SPECIMENOrdering Facility: [facility] Address: [address] [address] Performed By: #### 2 4321-2 ####[facility] LABCLIA [id number] [place] [address] [place] Sodium [Moles/Vol] 135 mmol/L Low 136-144 [facility] Comment on above: Order Comment: Speci men Type: BLOOD SPECIMENOrdering Facility: [facility] Address: [address] [address] Performed By: #### 2 4321-2 ####[facility] LABCLIA [id number] [place] [address] [place] Urea nitrogen [Mass/Vol] 9 mg/dL Normal 9-24 [facility] Comment on above: Order Comment: Speci men Type: BLOOD SPECIMENOrdering Facility: [facility] Address: [address] [place] [address] Performed By: #### 2 4321-2 ####[facility] LABCLIA [id number] [place] [address] [place] CASE MGT INIT ASSESon 2022 CASE MGT INIT ASSES Normal [facility] CBC panel Auto (Bld)on 08-10 Erythrocyte distribution width (RBC) [Ratio] 13.2 % Normal 11.5-15.0 [facility] Comment on above: Order Comment: Speci men Type: BLOOD SPECIMENOrdering Facility: [facility] Address: [address] [place] [address] Performed By: #### 5 8410-2 ####[facility] LABIA [id number] [place] [address] [place] Hematocrit (Bld) [Volume fraction] 28.5 % Low 39.0-51.0 [facility] Comment on above: Order Comment: Speci men Type: BLOOD SPECIMENOrdering Facility: [facility] Address: [address] [place], [place] [address] Performed By: #### 5 8410-2 ####[facility] LABCLIA [id number] [place] [address] [place] Hemoglobin (Bld) [Mass/Vol] 9.7 g/dL Low 13.0-17.0 [facility] Comment on above: Order Comment: Speci men Type: BLOOD SPECIMENOrdering Facility: [facility] Address: [address] [place] [address] Performed By: #### 5 8410-2 ####[facility] LABCLIA [id number] [address] STATES OF [facility] MCH (RBC) [Entitic mass] 28.9 pg Normal 26.0-34.0 [facility] Comment on above: Order Comment: Speci men Type: BLOOD SPECIMENOrdering Facility: [facility] Address: [address] [place] [address] Performed By: #### 5 8410-2 ####[facility] LABIA [id number] [address] MCHC (RBC) [Mass/Vol] 34.0 g/dL Normal 30.5-36.0 [facility] Comment on above: Order Comment: Speci men Type: BLOOD SPECIMENOrdering Facility: [facility] Address: [address] [place] [address] Performed By: #### 5 8410-2 ####[facility] LABIA [id number] [address] MCV (RBC) [Entitic vol] 84.8 fL Normal 80.0-100.0 [facility] Comment on above: Order Comment: Speci men Type: BLOOD SPECIMENOrdering Facility: [facility] Address: [address] [place] [address] Performed By: #### 5 8410-2 ####[facility] LABIA [id number] [address] [place] Nucleated RBC (Bld) [#/Vol] 10*3/uL Normal <0.01 [facility] Comment on above: Order Comment: Speci men Type: BLOOD SPECIMENOrdering Facility: [facility] Address: [address] [place] [address] Performed By: #### 5 8410-2 ####[facility] LABCLIA [id number] [address] [place] Platelet mean volume (Bld) [Entitic vol] 9.3 fL Normal 9.0-12.7 [facility] Comment on above: Order Comment: Speci men Type: BLOOD SPECIMENOrdering Facility: [facility] Address: [address] Performed By: #### 5 8410-2 ####[facility] LABCLIA [id number] [place] [address] [place] Platelets (Bld) [#/Vol] 234 10*3/uL Normal 150-400 [facility] Comment on above: Order Comment: Speci men Type: BLOOD SPECIMENOrdering Facility: [facility] Address: [address] Performed By: #### 5 8410-2 ####[facility] LABIA [id number] [place] [address] [place] RBC (Bld) [#/Vol] 3.36 10*6/uL Low 4.20-6.00 [facility] Comment on above: Order Comment: Speci men Type: BLOOD SPECIMENOrdering Facility: [facility] Address: [address] Performed By: #### 5 8410-2 ####[facility] LABIA [id number] [place] [address] [place] WBC (Bld) [#/Vol] 5.31 10*3/uL Normal 3.70-11.00 [facility] Comment on above: Order Comment: Speci men Type: BLOOD SPECIMENOrdering Facility: [facility] Address: [address] Performed By: #### 5 8410-2 ####[facility] LABIA [id number] [place] [address] [place] CONSULT PROGon 08-10-2022 CONSULT PROG Normal [facility] NURSING PROGon 08-10-2022 NURSING PROG Normal [facility] ANES POSTPROC EVALon 023 ANES POSTPROC EVAL Normal [facility] ANES PRE-OPon 08-09-2022 ANES PRE-OP Normal [facility] BRIEF OP NOTon 08-09-2022 BRIEF OP NOT Normal [facility] Bacteria Ur Culton 3 Bacteria identified Cx Nom (U) Abnormal [facility] Comment on above: Performed By: #### 6 30-4 ####[facility] LABCLIA [id number] [place] [address] [place] Basic metabolic 2000 panelon 08-09-2022 Anion gap [Moles/Vol] 10 mmol/L Normal 9-18 [facility] Comment on above: Order Comment: Speci men Type: BLOOD SPECIMENOrdering Facility: [facility] Address: [address] [place] [address] Performed By: #### 2 4321-2 ####[facility] LABCLIA [id number] [place] [address] [place] Calcium [Mass/Vol] 8.7 mg/dL Normal 8.5-10.2 [facility] Comment on above: Order Comment: Speci men Type: BLOOD SPECIMENOrdering Facility: [facility] Address: [address] [place] [address] Performed By: #### 2 4321-2 ####[facility] LABCLIA [id number] [place] [address] [place] Chloride [Moles/Vol] 108 mmol/L High 97-105 [facility] Comment on above: Order Comment: Speci men Type: BLOOD SPECIMENOrdering Facility: [facility] Address: [address] [place] [address] Performed By: #### 2 4321-2 ####[facility] LABCLIA [id number] [place] [address] [place] CO2 [Moles/Vol] 23 mmol/L Normal 22-30 [facility] Comment on above: Order Comment: Speci men Type: BLOOD SPECIMENOrdering Facility: [facility] Address: [address] [address] Performed By: #### 2 4321-2 ####[facility] LABIA [id number] [address] [place] Creatinine [Mass/Vol] 0.72 mg/dL Low 0.73-1.22 [facility] Comment on above: Order Comment: Speci men Type: BLOOD SPECIMENOrdering Facility: [facility] Address: [address] [address] Performed By: #### 2 4321-2 ####[facility] LABIA [id number] [address] STATES OF [facility] ESTIMATED GLOMERULAR FILTRATION RATE 100 mL/min/1.73m??? Normal >=60 [facility] Comment on above: Order Comment: Speci men Type: BLOOD SPECIMENOrdering Facility: [facility] Address: [address] [place] [address] Result Comment: Ignacia mated Glomerular Filtration Rate [...] actual GFR. Performed By: #### 2 4321-2 ####[facility] LABIA [id number] [place] [address] [place] Glucose [Mass/Vol] 74 mg/dL Normal 74-99 [facility] Comment on above: Order Comment: Speci men Type: BLOOD SPECIMENOrdering Facility: [facility] Address: [address] [address] Result Comment: The [place] [employer] (ADA) provides guidance for cutoff [...] Standards of Medical Care in Diabetes 2016, [place] [employer]. Diabetes Care. 2016.39(Suppl 1). Performed By: #### 2 4321-2 ####[facility] LABCLIA [id number] [place] [address] [place] Potassium [Moles/Vol] 3.8 mmol/L Normal 3.7-5.1 [facility] Comment on above: Order Comment: Speci men Type: BLOOD SPECIMENOrdering Facility: [facility] Address: [address] [place] [address] Performed By: #### 2 4321-2 ####[facility] LABIA [id number] [place] [address] [place] Sodium [Moles/Vol] 141 mmol/L Normal 136-144 [facility] Comment on above: Order Comment: Speci men Type: BLOOD SPECIMENOrdering Facility: [facility] Address: [address] [place] [address] Performed By: #### 2 4321-2 ####[facility] LABIA [id number] [place] [address] [place] Urea nitrogen [Mass/Vol] 8 mg/dL Low 9-24 [facility] Comment on above: Order Comment: Speci men Type: BLOOD SPECIMENOrdering Facility: [facility] Address: [address] [address] Performed By: #### 2 4321-2 ####[facility] LABIA [id number] [place] [address] [place] CALCULI ANALYSISon 3 Calculus analysis [Interp] Normal [facility] Comment on above: Order Comment: Speci men Type: CALCULUS SPECIMENOrdering Facility: [facility] Address: [address] [place] [address] Result Comment: This test was developed and its performance characteristics determined by [facility]'s [facility] Pathology and Laboratory Medicine [place] ([facility]). It has not been cleared or approved by the FDA. [facility] is regulated under CLIA as qualified to perform high-complexity testing. This test is used for clinical purposes. It should not be regarded as investigational or for research. Performed By: #### C SA ####[facility] LABIA [id number] [address] [place] CALCULUS COLOR BEIGE Normal [facility] Comment on above: Order Comment: Speci men Type: CALCULUS SPECIMENOrdering Facility: [facility] Address: [address] [place] [address] Performed By: #### C SA ####[facility] LABIA [id number] [address] [place] CALCULUS COMPOSITION 1 90% Calcium Phosphate Normal [facility] Comment on above: Order Comment: Speci men Type: CALCULUS SPECIMENOrdering Facility: [facility] Address: [address] [place] [address] Performed By: #### C SA ####[facility] LABIA [id number] [address] [place] CALCULUS COMPOSITION 2 10% Minor Components Normal [facility] Comment on above: Order Comment: Speci men Type: CALCULUS SPECIMENOrdering Facility: [facility] Address: [address] [place] [address] Performed By: #### C SA ####[facility] LABCLIA [id number] [place] [address] [place] CALCULUS SIZE AND WT Multiple pieces. 1.3581 GRAMS Normal [facility] Comment on above: Order Comment: Speci men Type: CALCULUS SPECIMENOrdering Facility: [facility] Address: [address] [place] [address] Performed By: #### C SA ####[facility] LABIA [id number] [place] [address] [place] CALCULUS TYPE Calculus, CALCULI/CALCULUS Normal [facility] Comment on above: Order Comment: Speci men Type: CALCULUS SPECIMENOrdering Facility: [facility] Address: [address] [address] Performed By: #### C SA ####[facility] LABIA [id number] [place] [address] [place] CBC panel Auto (Bld)on 08-09 Erythrocyte distribution width (RBC) [Ratio] 13.5 % Normal 11.5-15.0 [facility] Comment on above: Order Comment: Speci men Type: BLOOD SPECIMENOrdering Facility: [facility] Address: [address] [address] Performed By: #### 5 8410-2 ####[facility] [id number] [place] [address] [place] Hematocrit (Bld) [Volume fraction] 31.1 % Low 39.0-51.0 [facility] Comment on above: Order Comment: Speci men Type: BLOOD SPECIMENOrdering Facility: [facility] Address: [address] [place], [place] [address] Performed By: #### 5 8410-2 ####[facility] [id number] [place] [address] [place] Hemoglobin (Bld) [Mass/Vol] 9.7 g/dL Low 13.0-17.0 [facility] Comment on above: Order Comment: Speci men Type: BLOOD SPECIMENOrdering Facility: [facility] Address: [address] Performed By: #### 5 8410-2 ####[facility] LABIA [id number] [address] MCH (RBC) [Entitic mass] 27.9 pg Normal 26.0-34.0 [facility] Comment on above: Order Comment: Speci men Type: BLOOD SPECIMENOrdering Facility: [facility] Address: [address] [place], [place] [address] Performed By: #### 5 8410-2 ####[facility] [id number] [address] [place] MCHC (RBC) [Mass/Vol] 31.2 g/dL Normal 30.5-36.0 [facility] Comment on above: Order Comment: Speci men Type: BLOOD SPECIMENOrdering Facility: [facility] Address: [address] [place], [place] [address] Performed By: #### 5 8410-2 ####[facility] [id number] [address] [place] MCV (RBC) [Entitic vol] 89.4 fL Normal 80.0-100.0 [facility] Comment on above: Order Comment: Speci men Type: BLOOD SPECIMENOrdering Facility: [facility] Address: [address] [place], [place] [address] Performed By: #### 5 8410-2 ####[facility] [id number] [address] Nucleated RBC (Bld) [#/Vol] 10*3/uL Normal <0.01 [facility] Comment on above: Order Comment: Speci men Type: BLOOD SPECIMENOrdering Facility: [facility] Address: [address] Performed By: #### 5 8410-2 ####[facility] [id number] [place] [address] [place] Platelet mean volume (Bld) [Entitic vol] 9.7 fL Normal 9.0-12.7 [facility] Comment on above: Order Comment: Speci men Type: BLOOD SPECIMENOrdering Facility: [facility] Address: [address] [place], [place] [address] Performed By: #### 5 8410-2 ####[facility] LABCLIA [id number] [place] [address] [place] Platelets (Bld) [#/Vol] 258 10*3/uL Normal 150-400 [facility] Comment on above: Order Comment: Speci men Type: BLOOD SPECIMENOrdering Facility: [facility] Address: [address] [place], [place] [address] Performed By: #### 5 8410-2 ####[facility] LABCLIA [id number] [place] [address] [place] RBC (Bld) [#/Vol] 3.48 10*6/uL Low 4.20-6.00 [facility] Comment on above: Order Comment: Speci men Type: BLOOD SPECIMENOrdering Facility: [facility] Address: [address] [place], [place] [address] Performed By: #### 5 8410-2 ####[facility] LABCLIA [id number] [place] [address] [place] WBC (Bld) [#/Vol] 3.10 10*3/uL Low 3.70-11.00 [facility] Comment on above: Order Comment: Speci men Type: BLOOD SPECIMENOrdering Facility: [facility] Address: [address] [place], [place] [address] Performed By: #### 5 8410-2 ####[facility] LABCLIA [id number] [place] [address] [place] CNDSon 08-09-2022 CNDS Normal [facility] CONSULTon 08-09-2022 CONSULT Normal [facility] NURSING PROGon 08-09-2022 NURSING PROG Normal [facility] NURSING PROG Normal [facility] NURSING PROG Normal [facility] OPERATIVE NOon 08-09-2022 OPERATIVE NO Normal [facility] PT panel Coag (PPP)on 2022 INR Coag (PPP) [Relative time] 1.0 {INR} Normal 0.9-1.3 [facility] Comment on above: Order Comment: Speci men Type: BLOOD SPECIMENOrdering Facility: [facility] Address: [address] [id number] Result Comment: Kendra min K Antagonist (VKA) Therapeutic Range: INR 2 to 3 (Target INR of 2.5)Note: For patients treated with VKA drugs, such as warfarin, the [place] [employer] 2012 Guideline recommends [...] al. Chest 2012, 141:7S-47SNishimura RA, et al. [facility] 2017, 70: 252-289 Performed By: #### 3 4528-0, 39008-2 ####[facility] LABCLIA [id number] [facility] [id number] [address] [place] PT Coag (PPP) [Time] 10.3 s Normal 9.7-13.0 [facility] Comment on above: Order Comment: Cierra cartwright Type: BLOOD SPECIMENOrdering Facility: [facility] Address: [address] [place] [address] Performed By: #### 3 4528-0, 92784-3 ####[facility] LABCLIA [id number] [place] [address] [place] TYPE + SCREENon 08-09-2022 ABO O Normal [facility] Comment on above: Order Comment: Speci men Type: BLOOD SPECIMENOrdering Facility: [facility] Address: [address] [place] [address] Performed By: #### T SCR ####[facility] BLOOD BANKCLIA [id number] [address] [place] HISTORICAL AB SCR STATUS Negative Normal [facility] Comment on above: Order Comment: Speci men Type: BLOOD SPECIMENOrdering Facility: [facility] Address: [address] [place] [address] Performed By: #### T SCR ####[facility] BLOOD BANKIA [id number] [place] [address] [place] Rh Nom (Bld) Positive Normal [facility] Comment on above: Order Comment: Speci men Type: BLOOD SPECIMENOrdering Facility: [facility] Address: [address] [place] [address] Performed By: #### T SCR ####[facility] BLOOD BANKCLIA [id number] [address] [place] TYPE AND SCREEN EXPIRATION 08/12/2022 23:59 Normal [facility] Comment on above: Order Comment: Speci men Type: BLOOD SPECIMENOrdering Facility: [facility] Address: [address] [place] [address] Performed By: #### T SCR ####[facility] BLOOD BANKIA [id number] [place] [address] [place] aPTT PPPon 08-09-2022 aPTT Coag (PPP) [Time] 28.2 s Normal 23.0-32.4 [facility] Comment on above: Order Comment: Speci men Type: BLOOD SPECIMENOrdering Facility: [facility] Address: [address] Performed By: #### 3 4528-0, 63731-5 ####[facility] LABCLIA [id number] [place] [address] [place] Basic metabolic 2000 panelon 08-08-2022 Anion gap [Moles/Vol] 9 mmol/L Normal 9-18 [facility] Comment on above: Order Comment: Speci men Type: BLOOD SPECIMENOrdering Facility: [facility] Address: [address] Performed By: #### 2 4321-2 ####[facility] LABCLIA [id number] [place] [address] [place] Calcium [Mass/Vol] 7.3 mg/dL Low 8.5-10.2 [facility] Comment on above: Order Comment: Speci men Type: BLOOD SPECIMENOrdering Facility: [facility] Address: [address] Performed By: #### 2 4321-2 ####[facility] LABCLIA [id number] [place] [address] [place] Chloride [Moles/Vol] 115 mmol/L High 97-105 [facility] Comment on above: Order Comment: Speci men Type: BLOOD SPECIMENOrdering Facility: [facility] Address: [address] Performed By: #### 2 4321-2 ####[facility] LABCLIA [id number] [place] [address] [place] CO2 [Moles/Vol] 19 mmol/L Low 22-30 [facility] Comment on above: Order Comment: Speci men Type: BLOOD SPECIMENOrdering Facility: [facility] Address: [address] Performed By: #### 2 4321-2 ####[facility] LABCLIA [id number] [address] STATES OF [facility] Creatinine [Mass/Vol] 0.54 mg/dL Low 0.73-1.22 [facility] Comment on above: Order Comment: Cierra cartwright Type: BLOOD SPECIMENOrdering Facility: [facility] Address: [address] [address] Performed By: #### 2 4321-2 ####[facility] LABCLIA [id number] [address] ESTIMATED GLOMERULAR FILTRATION RATE 109 mL/min/1.73m??? Normal >=60 [facility] Comment on above: Order Comment: Cierra cartwright Type: BLOOD SPECIMENOrdering Facility: [facility] Address: [address] [place] [address] Result Comment: Ignacia mated Glomerular Filtration Rate [...] actual GFR. Performed By: #### 2 4321-2 ####[facility] LABCLIA [id number] [address] STATES OF [facility] Glucose [Mass/Vol] 74 mg/dL Normal 74-99 [facility] Comment on above: Order Comment: Cierra cartwright Type: BLOOD SPECIMENOrdering Facility: [facility] Address: [address] [place] [address] Result Comment: The [place] [employer] (ADA) provides guidance for cutoff [...] Standards of Medical Care in Diabetes 2016, [place] [employer]. Diabetes Care. 2016.39(Suppl 1). Performed By: #### 2 4321-2 ####[facility] LABCLIA [id number] [place] [address] [place] Potassium [Moles/Vol] 3.3 mmol/L Low 3.7-5.1 [facility] Comment on above: Order Comment: Speci men Type: BLOOD SPECIMENOrdering Facility: [facility] Address: [address] [address] Performed By: #### 2 4321-2 ####[facility] LABIA [id number] [place] [address] [place] Sodium [Moles/Vol] 143 mmol/L Normal 136-144 [facility] Comment on above: Order Comment: Speci men Type: BLOOD SPECIMENOrdering Facility: [facility] Address: [address] [address] Performed By: #### 2 4321-2 ####[facility] LABIA [id number] [place] [address] [place] Urea nitrogen [Mass/Vol] 7 mg/dL Low 9-24 [facility] Comment on above: Order Comment: Speci men Type: BLOOD SPECIMENOrdering Facility: [facility] Address: [address] [address] Performed By: #### 2 4321-2 ####[facility] LABIA [id number] [place] [address] [place] CBC panel Auto (Bld)on 08-08 Erythrocyte distribution width (RBC) [Ratio] 13.5 % Normal 11.5-15.0 [facility] Comment on above: Order Comment: Speci men Type: BLOOD SPECIMENOrdering Facility: [facility] Address: [address] [address] Performed By: #### 5 8410-2 ####[facility] LABCLIA [id number] [address] [place] Hematocrit (Bld) [Volume fraction] 31.7 % Low 39.0-51.0 [facility] Comment on above: Order Comment: Speci men Type: BLOOD SPECIMENOrdering Facility: [facility] Address: [address] [place], [place] [address] Performed By: #### 5 8410-2 ####[facility] LABIA [id number] [place] [address] [place] Hemoglobin (Bld) [Mass/Vol] 9.9 g/dL Low 13.0-17.0 [facility] Comment on above: Order Comment: Speci men Type: BLOOD SPECIMENOrdering Facility: [facility] Address: [address] [place], [place] [address] Performed By: #### 5 8410-2 ####[facility] LABIA [id number] [place] [address] [place] MCH (RBC) [Entitic mass] 27.9 pg Normal 26.0-34.0 [facility] Comment on above: Order Comment: Speci men Type: BLOOD SPECIMENOrdering Facility: [facility] Address: [address] [place], [place] [address] Performed By: #### 5 8410-2 ####[facility] LABIA [id number] [address] [place] MCHC (RBC) [Mass/Vol] 31.2 g/dL Normal 30.5-36.0 [facility] Comment on above: Order Comment: Speci men Type: BLOOD SPECIMENOrdering Facility: [facility] Address: [address] [place], [place] [address] Performed By: #### 5 8410-2 ####[facility] LABCLIA [id number] [place] [address] [place] [facility] MCV (RBC) [Entitic vol] 89.3 fL Normal 80.0-100.0 [facility] Comment on above: Order Comment: Speci men Type: BLOOD SPECIMENOrdering Facility: [facility] Address: [address] [place] [address] Performed By: #### 5 8410-2 ####[facility] LABIA [id number] [address] [place] Nucleated RBC (Bld) [#/Vol] 10*3/uL Normal <0.01 [facility] Comment on above: Order Comment: Speci men Type: BLOOD SPECIMENOrdering Facility: [facility] Address: [address] [place] [address] Performed By: #### 5 8410-2 ####[facility] LABIA [id number] [address] STATES [place] [facility] Platelet mean volume (Bld) [Entitic vol] 9.5 fL Normal 9.0-12.7 [facility] Comment on above: Order Comment: Speci men Type: BLOOD SPECIMENOrdering Facility: [facility] Address: [address] [place], [place] [address] Performed By: #### 5 8410-2 ####[facility] LABIA [id number] [place] [address] [place] Platelets (Bld) [#/Vol] 268 10*3/uL Normal 150-400 [facility] Comment on above: Order Comment: Speci men Type: BLOOD SPECIMENOrdering Facility: [facility] Address: [address] [place], [place] [address] Performed By: #### 5 8410-2 ####[facility] LABCLIA [id number] [place] [address] [place] RBC (Bld) [#/Vol] 3.55 10*6/uL Low 4.20-6.00 [facility] Comment on above: Order Comment: Speci men Type: BLOOD SPECIMENOrdering Facility: [facility] Address: [address] [place], [place] [address] Performed By: #### 5 8410-2 ####[facility] LABCLIA [id number] [place] [address] [place] WBC (Bld) [#/Vol] 2.90 10*3/uL Low 3.70-11.00 [facility] Comment on above: Order Comment: Speci men Type: BLOOD SPECIMENOrdering Facility: [facility] Address: [address] [place], [place] [address] Performed By: #### 5 8410-2 ####[facility] LABCLIA [id number] [place] [address] [place] NURSING PROGon 08-08-2022 NURSING PROG Normal [facility] CBC W Auto Differential pane l (Bld)on 08-07-2022 Basophils (Bld) [#/Vol] 0.07 10*3/uL Normal <0.11 [facility] Comment on above: Order Comment: Speci men Type: BLOOD SPECIMENOrdering Facility: [facility] Address: [address] [place], [place] [address] Performed By: #### 5 7021-8 ####[facility] LABCLIA [id number] [place] [address] [place] Basophils/100 WBC (Bld) 1.4 % Normal [facility] Comment on above: Order Comment: Speci men Type: BLOOD SPECIMENOrdering Facility: [facility] Address: [address] [place], [place] [address] Performed By: #### 5 7021-8 ####[facility] LABCLIA [id number] [place] [address] [place] Differential cell count method Nom (Bld) Auto Normal [facility] Comment on above: Order Comment: Speci men Type: BLOOD SPECIMENOrdering Facility: [facility] Address: [address] [address] Performed By: #### 5 7021-8 ####[facility] LABCLIA [id number] [place] [address] [place] Eosinophils (Bld) [#/Vol] 0.15 10*3/uL Normal <0.46 [facility] Comment on above: Order Comment: Speci men Type: BLOOD SPECIMENOrdering Facility: [facility] Address: [address] [address] Performed By: #### 5 7021-8 ####[facility] LABCLIA [id number] [address] [place] Eosinophils/100 WBC (Bld) 3.1 % Normal [facility] Comment on above: Order Comment: Speci men Type: BLOOD SPECIMENOrdering Facility: [facility] Address: [address] Performed By: #### 5 7021-8 ####[facility] LABCLIA [id number] [place] [address] [place] Erythrocyte distribution width (RBC) [Ratio] 13.9 % Normal 11.5-15.0 [facility] Comment on above: Order Comment: Speci men Type: BLOOD SPECIMENOrdering Facility: [facility] Address: [address] Performed By: #### 5 7021-8 ####[facility] LABCLIA [id number] [address] [place] Hematocrit (Bld) [Volume fraction] 34.2 % Low 39.0-51.0 [facility] Comment on above: Order Comment: Speci men Type: BLOOD SPECIMENOrdering Facility: [facility] Address: [address] Performed By: #### 5 7021-8 ####[facility] LABCLIA [id number] [place] [address] [place] Hemoglobin (Bld) [Mass/Vol] 10.6 g/dL Low 13.0-17.0 [facility] Comment on above: Order Comment: Speci men Type: BLOOD SPECIMENOrdering Facility: [facility] Address: [address] [place] [address] Performed By: #### 5 7021-8 ####[facility] LABCLIA [id number] [place] [address] [place] Immature granulocytes (Bld) [#/Vol] 0.03 10*3/uL Normal <0.10 [facility] Comment on above: Order Comment: Speci men Type: BLOOD SPECIMENOrdering Facility: [facility] Address: [address] [place] [address] Performed By: #### 5 7021-8 ####[facility] LABCLIA [id number] [place] [address] [place] Immature granulocytes/100 WBC (Bld) 0.6 % Normal [facility] Comment on above: Order Comment: Speci men Type: BLOOD SPECIMENOrdering Facility: [facility] Address: [address] [place] [address] Performed By: #### 5 7021-8 ####[facility] LABCLIA [id number] [place] [address] [place] Lymphocytes (Bld) [#/Vol] 1.73 10*3/uL Normal 1.00-4.00 [facility] Comment on above: Order Comment: Speci men Type: BLOOD SPECIMENOrdering Facility: [facility] Address: [address] [place], [place] [address] Performed By: #### 5 7021-8 ####[facility] LABCLIA [id number] [place] [address] [place] Lymphocytes/100 WBC (Bld) 35.4 % Normal [facility] Comment on above: Order Comment: Speci men Type: BLOOD SPECIMENOrdering Facility: [facility] Address: [address] [place], [place] [address] Performed By: #### 5 7021-8 ####[facility] LABIA [id number] [address] [place] MCH (RBC) [Entitic mass] 28.2 pg Normal 26.0-34.0 [facility] Comment on above: Order Comment: Speci men Type: BLOOD SPECIMENOrdering Facility: [facility] Address: [address] [place], [place] [address] Performed By: #### 5 7021-8 ####[facility] LABBRATT[facility] [id number] [address] [place] MCHC (RBC) [Mass/Vol] 31.0 g/dL Normal 30.5-36.0 [facility] Comment on above: Order Comment: Speci men Type: BLOOD SPECIMENOrdering Facility: [facility] Address: [address] [place], [place] [address] Performed By: #### 5 7021-8 ####[facility] [id number] [address] [place] MCV (RBC) [Entitic vol] 91.0 fL Normal 80.0-100.0 [facility] Comment on above: Order Comment: Speci men Type: BLOOD SPECIMENOrdering Facility: [facility] Address: [address] [place], [place] [address] Performed By: #### 5 7021-8 ####[facility] LABIA [id number] [address] [place] Monocytes (Bld) [#/Vol] 0.57 10*3/uL Normal <0.87 [facility] Comment on above: Order Comment: Speci men Type: BLOOD SPECIMENOrdering Facility: [facility] Address: [address] [place] [address] [place] [address] Performed By: #### 5 7021-8 ####[facility] LABCLIA [id number] [place] [address] [place] Monocytes/100 WBC (Bld) 11.7 % Normal [facility] Comment on above: Order Comment: Speci men Type: BLOOD SPECIMENOrdering Facility: [facility] Address: [address] Performed By: #### 5 7021-8 ####[facility] LABCLIA [id number] [place] [address] [place] Neutrophils (Bld) [#/Vol] 2.34 10*3/uL Normal 1.45-7.50 [facility] Comment on above: Order Comment: Speci men Type: BLOOD SPECIMENOrdering Facility: [facility] Address: [address] Performed By: #### 5 7021-8 ####[facility] LABCLIA [id number] [address] [place] Neutrophils/100 WBC (Bld) 47.8 % Normal [facility] Comment on above: Order Comment: Speci men Type: BLOOD SPECIMENOrdering Facility: [facility] Address: [address] [place] [address] Performed By: #### 5 7021-8 ####[facility] LABCLIA [id number] [place] [address] [place] Nucleated RBC (Bld) [#/Vol] 10*3/uL Normal <0.01 [facility] Comment on above: Order Comment: Speci men Type: BLOOD SPECIMENOrdering Facility: [facility] Address: [address] Performed By: #### 5 7021-8 ####[facility] LABCLIA [id number] [place] [address] [place] Nucleated RBC/100 WBC (Bld) [Ratio] 0.0 /100 WBC Normal [facility] Comment on above: Order Comment: Speci men Type: BLOOD SPECIMENOrdering Facility: [facility] Address: [address] [place], [place] [address] Performed By: #### 5 7021-8 ####[facility] LABCLIA [id number] [place] [address] [place] Platelet mean volume (Bld) [Entitic vol] 9.1 fL Normal 9.0-12.7 [facility] Comment on above: Order Comment: Speci men Type: BLOOD SPECIMENOrdering Facility: [facility] Address: [address] [place], [place] [address] Performed By: #### 5 7021-8 ####[facility] LABCLIA [id number] [place] [address] [place] Platelets (Bld) [#/Vol] 280 10*3/uL Normal 150-400 [facility] Comment on above: Order Comment: Speci men Type: BLOOD SPECIMENOrdering Facility: [facility] Address: [address] [place], [place] [address] Performed By: #### 5 7021-8 ####[facility] LABCLIA [id number] [place] [address] [place] RBC (Bld) [#/Vol] 3.76 10*6/uL Low 4.20-6.00 [facility] Comment on above: Order Comment: Speci men Type: BLOOD SPECIMENOrdering Facility: [facility] Address: [address] [place], [place] [address] Performed By: #### 5 7021-8 ####[facility] LABCLIA [id number] [place] [address] [place] WBC (Bld) [#/Vol] 4.89 10*3/uL Normal 3.70-11.00 [facility] Comment on above: Order Comment: Speci men Type: BLOOD SPECIMENOrdering Facility: [facility] Address: [address] Performed By: #### 5 7021-8 ####[facility] LABCLIA [id number] [place] [address] [place] CONSULTon 08-07-2022 CONSULT Normal [facility] metabolic 2000 panelon 08-07-2022 Albumin [Mass/Vol] 3.2 g/dL Low 3.9-4.9 [facility] Comment on above: Order Comment: Speci men Type: BLOOD SPECIMENOrdering Facility: [facility] Address: [address] Performed By: #### 2 4323-8 ####[facility] LABCLIA [id number] [place] [address] [place] ALP [Catalytic activity/Vol] 94 U/L Normal 38-113 [facility] Comment on above: Order Comment: Speci men Type: BLOOD SPECIMENOrdering Facility: [facility] Address: [address] Performed By: #### 2 4323-8 ####[facility] LABCLIA [id number] [place] [address] [place] ALT [Catalytic activity/Vol] 12 U/L Normal 10-54 [facility] Comment on above: Order Comment: Speci men Type: BLOOD SPECIMENOrdering Facility: [facility] Address: [address] Performed By: #### 2 4323-8 ####[facility] LABCLIA [id number] [place] [address] [place] Anion gap [Moles/Vol] 10 mmol/L Normal 9-18 [facility] Comment on above: Order Comment: Speci men Type: BLOOD SPECIMENOrdering Facility: [facility] Address: [address] Performed By: #### 2 4323-8 ####[facility] LABCLIA [id number] [place] [address] [place] AST [Catalytic activity/Vol] 15 U/L Normal 14-40 [facility] Comment on above: Order Comment: Speci men Type: BLOOD SPECIMENOrdering Facility: [facility] Address: [address] [place], [place] [address] Performed By: #### 2 4323-8 ####[facility] LABCLIA [id number] [place] [address] [place] Bilirubin [Mass/Vol] 0.2 mg/dL Normal 0.2-1.3 [facility] Comment on above: Order Comment: Speci men Type: BLOOD SPECIMENOrdering Facility: [facility] Address: [address] [place], [place] [address] Performed By: #### 2 4323-8 ####[facility] LABIA [id number] [place] [address] [place] Calcium [Mass/Vol] 9.1 mg/dL Normal 8.5-10.2 [facility] Comment on above: Order Comment: Speci men Type: BLOOD SPECIMENOrdering Facility: [facility] Address: [address] [place], [place] [address] Performed By: #### 2 4323-8 ####[facility] LABCLIA [id number] [place] [address] [place] Chloride [Moles/Vol] 106 mmol/L High 97-105 [facility] Comment on above: Order Comment: Speci men Type: BLOOD SPECIMENOrdering Facility: [facility] Address: [address] [place], [place] [address] Performed By: #### 2 4323-8 ####[facility] LABCLIA [id number] [place] [address] [address] [place] CO2 [Moles/Vol] 24 mmol/L Normal 22-30 [facility] Comment on above: Order Comment: Speci men Type: BLOOD SPECIMENOrdering Facility: [facility] Address: [address] [address] Performed By: #### 2 4323-8 ####[facility] LABCLIA [id number] [address] [place] Creatinine [Mass/Vol] 0.81 mg/dL Normal 0.73-1.22 [facility] Comment on above: Order Comment: Speci men Type: BLOOD SPECIMENOrdering Facility: [facility] Address: [address] [address] Performed By: #### 2 4323-8 ####[facility] LABIA [id number] [address] OF [facility] ESTIMATED GLOMERULAR FILTRATION RATE 97 mL/min/1.73m??? Normal >=60 [facility] Comment on above: Order Comment: Speci men Type: BLOOD SPECIMENOrdering Facility: [facility] Address: [address] [place] [address] Result Comment: Ignacia mated Glomerular Filtration Rate [...] actual GFR. Performed By: #### 2 4323-8 ####[facility] LABIA [id number] [place] [address] [place] Glucose [Mass/Vol] 100 mg/dL High 74-99 [facility] Comment on above: Order Comment: Speci men Type: BLOOD SPECIMENOrdering Facility: [facility] Address: [address] [address] Result Comment: The [place] [employer] (ADA) provides guidance for cutoff [...] Standards of Medical Care in Diabetes 2016, [place] [employer]. Diabetes Care. 2016.39(Suppl 1). Performed By: #### 2 4323-8 ####[facility] LABCLIA [id number] [place] [address] [place] Potassium [Moles/Vol] 3.7 mmol/L Normal 3.7-5.1 [facility] Comment on above: Order Comment: Speci men Type: BLOOD SPECIMENOrdering Facility: [facility] Address: [address] [address] Performed By: #### 2 4323-8 ####[facility] LABCLIA [id number] [place] [address] [place] Protein [Mass/Vol] 7.0 g/dL Normal 6.3-8.0 [facility] Comment on above: Order Comment: Speci men Type: BLOOD SPECIMENOrdering Facility: [facility] Address: [address] [address] Performed By: #### 2 4323-8 ####[facility] LABCLIA [id number] [place] [address] [place] Sodium [Moles/Vol] 140 mmol/L Normal 136-144 [facility] Comment on above: Order Comment: Speci men Type: BLOOD SPECIMENOrdering Facility: [facility] Address: [address] Performed By: #### 2 4323-8 ####[facility] [facility]OSP[facility] LABCLIA [id number] [address] Urea nitrogen [Mass/Vol] 12 mg/dL Normal 9-24 [facility] Comment on above: Order Comment: Cierra cartwright Type: BLOOD SPECIMENOrdering Facility: [facility] Address: [address] [place] [address] Performed By: #### 2 4323-8 ####[facility] LABCLIA [id number] [address] ED PROV NOTEon 08-07-2022 ED PROV NOTE Normal [facility] HISTORY PHYSICALon HISTORY PHYSICAL Normal [facility] PT panel Coag (PPP)on 2022 INR Coag (PPP) [Relative time] 0.9 {INR} Normal 0.9-1.3 [facility] Comment on above: Order Comment: Cierra cartwright Type: BLOOD SPECIMENOrdering Facility: [facility] Address: [address] [place] [address] Result Comment: Kendra min K Antagonist (VKA) Therapeutic Range: INR 2 to 3 (Target INR of 2.5)Note: For patients treated with VKA drugs, such as warfarin, the [place] [employer] 2012 Guideline recommends [...] of 3).Farzaneh GH, et al. Chest 2012, 141:7S-47SMatthew RA, et al. [facility] 2017, 70: 252-289 Performed By: #### 3 4528-0 ####[facility] LABCLIA [id number] [address] [place] PT Coag (PPP) [Time] 9.8 s Normal 9.7-13.0 [facility] Comment on above: Order Comment: Speci men Type: BLOOD SPECIMENOrdering Facility: [facility] Address: [address] [place] [address] Performed By: #### 3 4528-0 ####[facility] LABCLIA [id number] [address] OF [facility] TYPE + SCREENon 08-07-2022 ABO O Normal [facility] Comment on above: Order Comment: Speci men Type: BLOOD SPECIMENOrdering Facility: [facility] Address: [address] [place] [address] Performed By: #### T SCR ####CC MAIN BLOOD BANKCLIA [id number] [address] OF [facility] HISTORICAL AB SCR STATUS Negative Normal [facility] Comment on above: Order Comment: Speci men Type: BLOOD SPECIMENOrdering Facility: [facility] Address: [address] [place] [address] Performed By: #### T SCR ####CC [facility] BLOOD BANKCLIA [id number] [address] [place] Rh Nom (Bld) Positive Normal [facility] Comment on above: Order Comment: Speci men Type: BLOOD SPECIMENOrdering Facility: [facility] Address: [address] [place], [place] [address] Performed By: #### T SCR ####CC MAIN BLOOD BANKCLIA [id number] [place] [address] [place] TYPE AND SCREEN EXPIRATION 08/09/2022 23:59 Normal [facility] Comment on above: Order Comment: Speci men Type: BLOOD SPECIMENOrdering Facility: [facility] Address: [address] [place] [address] Performed By: #### T SCR ####CC MAIN BLOOD BANKCLIA [id number] [place] [address] [place] Urinalysis complete panel (U )on 08-07-2022 Bacteria LM.HPF (Urine sed) [#/Area] Rare Abnormal None Seen [facility] Comment on above: Order Comment: Speci men Type: URINE SPECIMENOrdering Facility: [facility] Address: [address] [place] [address] Performed By: #### 2 4356-8 ####[facility] LABIA [id number] [place] [address] [place] Bilirubin Ql (U) Negative Normal Negative [facility] Comment on above: Order Comment: Speci men Type: URINE SPECIMENOrdering Facility: [facility] Address: [address] [place] [address] Performed By: #### 2 4356-8 ####[facility] LABIA [id number] [place] [address] [place] Clarity (Unsp spec) Cloudy Abnormal Clear [facility] Comment on above: Order Comment: Speci men Type: URINE SPECIMENOrdering Facility: [facility] Address: [address] [place] [address] Performed By: #### 2 4356-8 ####[facility] LABIA [id number] [address] STATES OF [facility] Color (U) Light Yellow Normal Yellow [facility] Comment on above: Order Comment: Speci men Type: URINE SPECIMENOrdering Facility: [facility] Address: [address] [place] [address] Performed By: #### 2 4356-8 ####[facility] LABIA [id number] [place] [address] [place] Epithelial cells LM.HPF (Urine sed) [#/Area] Few Normal [facility] Comment on above: Order Comment: Speci men Type: URINE SPECIMENOrdering Facility: [facility] Address: [address] Performed By: #### 2 4356-8 ####[facility] LABCLIA [id number] [place] [address] [place] Glucose Test strip (U) [Mass/Vol] Negative Normal Trace, Negative [facility] Comment on above: Order Comment: Speci men Type: URINE SPECIMENOrdering Facility: [facility] Address: [address] Performed By: #### 2 4356-8 ####[facility] LABCLIA [id number] [place] [address] [place] Hemoglobin Ql (U) 3+ Abnormal Negative, Trace [facility] Comment on above: Order Comment: Speci men Type: URINE SPECIMENOrdering Facility: [facility] Address: [address] [place] [address] Performed By: #### 2 4356-8 ####[facility] LABCLIA [id number] [place] [address] [place] Ketones Ql (U) Negative Normal Trace, Negative [facility] Comment on above: Order Comment: Speci men Type: URINE SPECIMENOrdering Facility: [facility] Address: [address] [place], [place] [address] Performed By: #### 2 4356-8 ####[facility] LABCLIA [id number] [place] [address] [place] Leukocyte esterase Test strip Ql (U) 75 Arnulfo/uL Abnormal Negative, 25 Arnulfo/uL [facility] Comment on above: Order Comment: Speci men Type: URINE SPECIMENOrdering Facility: [facility] Address: [address] [place], [place] [address] Performed By: #### 2 4356-8 ####[facility] LABCLIA [id number] [place] [address] [place] Nitrite Ql (U) Negative Normal Negative [facility] Comment on above: Order Comment: Speci men Type: URINE SPECIMENOrdering Facility: [facility] Address: [address] [place] [address] Performed By: #### 2 4356-8 ####[facility] LABIA [id number] [place] [address] [place] pH (U) 7.0 [pH] Normal 5.0-8.0 [facility] Comment on above: Order Comment: Speci men Type: URINE SPECIMENOrdering Facility: [facility] Address: [address] [place] [address] Performed By: #### 2 4356-8 ####[facility] LABIA [id number] [place] [address] [place] Protein (U) [Mass/Vol] 1+ Abnormal Trace , Negative [facility] Comment on above: Order Comment: Speci men Type: URINE SPECIMENOrdering Facility: [facility] Address: [address] [place] [address] Performed By: #### 2 4356-8 ####[facility] LABIA [id number] [place] [address] [place] RBC LM.HPF (Urine sed) [#/Area] /[HPF] Abnormal 0-3 /HPF [facility] Comment on above: Order Comment: Speci men Type: URINE SPECIMENOrdering Facility: [facility] Address: [address] [place], [place] [address] Performed By: #### 2 4356-8 ####[facility] LABIA [id number] [place] [address] [place] Specific gravity (U) [Rel density] 1.015 Normal 1.005-1.030 [facility] Comment on above: Order Comment: Speci men Type: URINE SPECIMENOrdering Facility: [facility] Address: [address] [place], [place] [address] Performed By: #### 2 4356-8 ####[facility] LABCLIA [id number] [address] [place] Urobilinogen Ql (U) Negative Normal Negative [facility] Comment on above: Order Comment: Speci men Type: URINE SPECIMENOrdering Facility: [facility] Address: [address] [place] [address] Performed By: #### 2 4356-8 ####[facility] LABIA [id number] [place] [address] [place] WBC LM.HPF (Urine sed) [#/Area] 6-10 /HPF Abnormal 0-5 /HPF [facility] Comment on above: Order Comment: Speci men Type: URINE SPECIMENOrdering Facility: [facility] Address: [address] [place] [address] Performed By: #### 2 4356-8 ####[facility] LABIA [id number] [address] [place] ED NOTEon 08-06-2022 ED NOTE HNO ID: [id number] Author: Marielena Moss RN Service: ? Author Type: Registered Nurse Type: ED Notes Filed: 08/06/2022 9:59 PM Note Text: Bed: E12-08 Expected date: 08/06/22 Expected time: 9:54 PM Means of arrival: Comments: EMS Normal [facility] BILIRUBIN TOTAL BLDon 2022 Bilirubin [Mass/Vol] 0.2 mg/dL 0.2 - 1 [facility] CBC W Auto Differential pane l (Bld)on 08-02-2022 Hematocrit (Bld) [Volume fraction] 34.1 % Abnormal 42 - 54 % [facility] Hemoglobin (Bld) [Mass/Vol] 10.7 g/dL Abnormal 14 - 18 g/dL [facility] Platelets (Bld) [#/Vol] 379 10*3/uL 150 - 450 K/uL [facility] WBC (Bld) [#/Vol] 4.9 10*3/uL 4.0 - 11.0 K/uL [facility] CREATININEon 08-02-2022 Creatinine [Mass/Vol] 0.92 mg/dL Normal 0.70-1.30 [facility] Comment on above: Performed By: #### R SPLUS #### [facility] [address] [address] [address] Cuba Weber EGFR-AF LAO >60 Normal >=60 [facility] Comment on above: Performed By: #### R SPLUS #### [facility] [address] [address] [address] Cuba Weber EGFR-NON AF LAO >60 Normal >=60 [facility] Comment on above: Performed By: #### R SPLUS #### [facility] [address] [address] [address] Cuba Weber Comprehensive metabolic 2000 panelon 08-02-2022 ALP [Catalytic activity/Vol] 73 U/L 46 - 116 [facility] ALT [Catalytic activity/Vol] 19 U/L 16 - 63 [facility] AST [Catalytic activity/Vol] 21 U/L 15 - 37 [facility] Creatinine [Mass/Vol] 0.92 mg/dL 0.7 - 1.3 MG/DL [facility] HEMOGRAM AND PLATELon 08-02 Hematocrit (Bld) [Volume fraction] 34.1 % Critically low 42.0-54.0 [facility] Comment on above: Performed By: #### H H ####[facility] [address] [id number][address] Cuba Weber Hemoglobin (Bld) [Mass/Vol] 10.7 g/dL Critically low 14.0-18.0 [facility] Comment on above: Performed By: #### H H ####[facility] [address] [place] [id number]. Cuba Weber MCH (RBC) [Entitic mass] 28.3 pg Normal 25.9-34.0 [facility] Comment on above: Performed By: #### H H ####[facility] [address] [id number]. Cuba Weber MCHC (RBC) [Mass/Vol] 31.4 g/dL Normal 29.9-35.2 [facility] Comment on above: Performed By: #### H H ####[facility] [address] [address]Dr. Cuba Weber MCV (RBC) [Entitic vol] 90.2 fL Normal 80.0-94.0 [facility] Comment on above: Performed By: #### H H ####[facility] [address] [address]Dr. Cuba Weber PLT 379 103/ul Normal 150-450 [facility] Comment on above: Performed By: #### H H ####[facility] [address] [address]Dr. Cuba Weber RBC 3.78 106/ul Critically low 4.70-6.10 [facility] Comment on above: Performed By: #### H H ####[facility] [address] [address]DrGlory Weber WBC 4.9 103/ul Normal 4.0-11.0 [facility] Comment on above: Performed By: #### H H ####[facility] [address] [id number]. Cuba Weber LIVER PROFILEon 08-02-2022 Albumin [Mass/Vol] 2.6 g/dL Critically low 3.4-5.0 [facility] Comment on above: Performed By: #### R SPLUS #### [facility] [address] [address] [address] Cuba Weber Albumin/Globulin [Mass ratio] 0.6 {ratio} Normal [facility] Comment on above: Performed By: #### R SPLUS #### [facility] [address] [address] [address] Cuba Weber ALP [Catalytic activity/Vol] 73 U/L Normal 46-116 [facility] Comment on above: Performed By: #### R SPLUS #### [facility] [address] [address] [address] Cuba Weber ALT [Catalytic activity/Vol] 19 U/L Normal 16-63 [facility] Comment on above: Performed By: #### R SPLUS #### [facility] [address] [address] [address] Cuba Weber AST [Catalytic activity/Vol] 21 U/L Normal 15-37 [facility] Comment on above: Performed By: #### R SPLUS #### [facility] [address] [address] [address] Cuba Weber BILI, CONJUGATED 0.1 mg/dL Normal 0.0-0.2 [facility] Comment on above: Performed By: #### R SPLUS #### [facility] [address] [address] [address] Cuba Weber Bilirubin [Mass/Vol] 0.2 mg/dL Normal 0.2-1.0 [facility] Comment on above: Performed By: #### R SPLUS #### [facility] [address] [address] [address] Cuba Weber Globulin (S) [Mass/Vol] 4.6 g/dL Normal [facility] Comment on above: Performed By: #### R SPLUS #### [facility] [address] [address] [address] Cuba Weber Protein [Mass/Vol] 7.2 g/dL Normal 6.4-8.2 [facility] Comment on above: Performed By: #### R SPLUS #### [facility] [address] [address] [address] Cuba Weber STOOL CULTUREon 07-24-2022 Campylobacter Culture Final report Normal [facility] Comment on above: Performed By: #### L ACT #### [facility] [address] [address] [address] Cuba Weber E coli Shiga Toxin EIA Negative Normal Negative [facility] Comment on above: Performed By: #### L ACT #### [facility] [address] [address] [address] Cuba Weber Result 1 Comment Normal [facility] Comment on above: Result Comment: No S almonella or Shigella recovered. Performed By: #### L ACT #### [facility] [address] [place] [address] Dr. Cuba Weber Result Comment: No C ampylobacter species isolated. Salmonella/Shigella Screen Final report [facility] Comment on above: Performed By: #### L ACT #### [facility] [address] [place] [address] Dr. Cuba Weber CULTURE BLOODon 07-22-2022 Microscopic [...] F Trimethoprim/Sulfame thoxazole <=20 S F Normal [facility] Comment on above: Performed By: #### C BC #### [facility] [address] [place], [place] [id number] Dr. Cuba Weber CULTURE URINEon 07-22-2022 CULTURE [...] F Trimethoprim/Sulfame thoxazole >=320 R F Normal [facility] Comment on above: Performed By: #### C BC #### [facility] [address] [address] [address] Cuba Weber CBC AUTO DIFFon 07-21-2022 BASO # 0.1 103/ul Normal 0.0-0.1 [facility] Comment on above: Performed By: #### C BC #### [facility] [address] [place] [address] Dr. Cuba Weber Basophils/100 WBC (Bld) 0.3 % Normal 0.2-2.0 [facility] Comment on above: Performed By: #### C BC #### [facility] [address] [place] [address] Dr. Cuba Weber EO # 0.3 103/ul Normal 0.0-0.7 [facility] Comment on above: Performed By: #### C BC #### [facility] [address] [place] [address] Dr. Cuba Weber Eosinophils/100 WBC (Bld) 1.4 % Normal 0.9-7.0 [facility] Comment on above: Performed By: #### C BC #### [facility] [address] [place] [address] Dr. Cuba Weber Erythrocyte distribution width (RBC) [Ratio] 14.9 % Normal 11.0-15.0 [facility] Comment on above: Performed By: #### C BC #### [facility] [address] [place] [address] Dr. Cuba Weber Hematocrit (Bld) [Volume fraction] 30.0 % Critically low 42.0-54.0 [facility] Comment on above: Performed By: #### C BC #### [facility] [address] [place] [address] Dr. Cuba Weber Hemoglobin (Bld) [Mass/Vol] 10.1 g/dL Critically low 14.0-18.0 [facility] Comment on above: Performed By: #### C BC #### [facility] [address] [place] [address] Dr. Cuba Weber IG # 2.09 10e3/ul Critically high 0.00-0.03 [facility] Comment on above: Performed By: #### C BC #### [facility] [address] [address] [address] Cuba Weber IG % 11.5 % Critically high 0.0-0.5 [facility] Comment on above: Performed By: #### C BC #### [facility] [address] [place] [address] Dr. Cuba Weber LYMPH # 0.4 103/ul Critically low 1.2-3.8 [facility] Comment on above: Performed By: #### C BC #### [facility] [address] [place] [address] Dr. Cuba Weber Lymphocytes/100 WBC (Bld) 2.1 % Critically low 20.5-60.0 [facility] Comment on above: Performed By: #### C BC #### [facility] [address] [place] [address] Dr. Cuba Weber MANUAL DIFF REQ NO Normal [facility] Comment on above: Performed By: #### C BC #### [facility] [address] [place] [address] Dr. Cuba Weber MCH (RBC) [Entitic mass] 28.5 pg Normal 25.9-34.0 [facility] Comment on above: Performed By: #### C BC #### [facility] [address] [place] [address] Dr. Cuba Weber MCHC (RBC) [Mass/Vol] 33.7 g/dL Normal 29.9-35.2 [facility] Comment on above: Performed By: #### C BC #### [facility] [address] [place] [address] Dr. Cuba Weber MCV (RBC) [Entitic vol] 84.5 fL Normal 80.0-94.0 [facility] Comment on above: Performed By: #### C BC #### [facility] [address] [place] [address] Dr. Cuba Weber MONO # 0.5 103/ul Normal 0.3-0.8 [facility] Comment on above: Performed By: #### C BC #### [facility] [address] [address] [address] Cuba Weber Monocytes/100 WBC (Bld) 2.9 % Normal 1.7-12.0 [facility] Comment on above: Performed By: #### C BC #### [facility] [address] [address] [address] Cuba Weber NEUT # 14.9 103/ul Critically high 1.4-6.5 [facility] Comment on above: Performed By: #### C BC #### [facility] [address] [address] [address] Cuba Weber Neutrophils/100 WBC (Bld) 81.8 % Critically high 43.0-75.0 [facility] Comment on above: Performed By: #### C BC #### [facility] [address] [place] [address] Dr. Cuba Weber Platelet mean volume (Bld) [Entitic vol] 11.8 fL Normal 9.5-13.5 [facility] Comment on above: Performed By: #### C BC #### [facility] [address] [place] [address] Dr. Cuba Weber PLT 74 103/ul Critically low 150-450 [facility] Comment on above: Performed By: #### C BC #### [facility] [address] [place] [address] Dr. Cuba Weber RBC 3.55 106/ul Critically low 4.70-6.10 [facility] Comment on above: Performed By: #### C BC #### [facility] [address] [place] [address] Dr. Cuba Weber WBC 18.2 103/ul Critically high 4.0-11.0 [facility] Comment on above: Performed By: #### C BC #### [facility] [address] [place] [address] Dr. Cuba Weber MAGNESIUMon 07-21-2022 Magnesium [Mass/Vol] 2.0 mg/dL Normal 1.8-2.4 [facility] Comment on above: Performed By: #### R SPLUS #### [facility] [address] [address] [address] Cuba Weber PROF 14(COMP METB)on 023 Albumin [Mass/Vol] 2.1 g/dL Critically low 3.4-5.0 [facility] Comment on above: Performed By: #### R SPLUS #### [facility] [address] [address] [address] Cuba Weber Albumin/Globulin [Mass ratio] 0.6 {ratio} Normal [facility] Comment on above: Performed By: #### R SPLUS #### [facility] [address] [address] [address] Cuba Weber ALP [Catalytic activity/Vol] 67 U/L Normal 46-116 [facility] Comment on above: Performed By: #### R SPLUS #### [facility] [address] [place] [address] Dr. Cuba Weber ALT [Catalytic activity/Vol] 35 U/L Normal 16-63 [facility] Comment on above: Performed By: #### R SPLUS #### [facility] [address] [place] [address] Dr. Cuba Weber Anion gap [Moles/Vol] 16.8 mmol/L Normal [facility] Comment on above: Performed By: #### R SPLUS #### [facility] [address] [place] [address] Dr. Cuba Weber AST [Catalytic activity/Vol] 50 U/L Critically high 15-37 [facility] Comment on above: Performed By: #### R SPLUS #### [facility] [address] [place] [address] Dr. Cuba Weber Bilirubin [Mass/Vol] 1.0 mg/dL Normal 0.2-1.0 [facility] Comment on above: Performed By: #### R SPLUS #### [facility] [address] [place] [address] Dr. Cuba Weber Calcium [Mass/Vol] 8.2 mg/dL Critically low 8.5-10.1 [facility] Comment on above: Performed By: #### R SPLUS #### [facility] [address] [address] [address] Cuba Weber Chloride [Moles/Vol] 102 mmol/L Normal 98-107 [facility] Comment on above: Performed By: #### R SPLUS #### [facility] [address] [address] [address] Cuba Weber CO2 [Moles/Vol] 18.4 mmol/L Critically low 21.0-32.0 [facility] Comment on above: Performed By: #### R SPLUS #### [facility] [address] [address] [address] Cuba Weber Creatinine [Mass/Vol] 1.53 mg/dL Critically high 0.70-1.30 [facility] Comment on above: Performed By: #### R SPLUS #### [facility] [address] [place] [address] Dr. Cuba Weber EGFR-AF LAO 55 mL/min/1.73m2 Critically low >=60 [facility] Comment on above: Performed By: #### R SPLUS #### [facility] [address] [place] [address] Dr. Cuab Weber EGFR-NON AF LAO 46 mL/min/1.73m2 Critically low >=60 [facility] Comment on above: Performed By: #### R SPLUS #### [facility] [facility] [address] [place] [address] Dr. Cuba Weber Globulin (S) [Mass/Vol] 3.7 g/dL Normal [facility] Comment on above: Performed By: #### R SPLUS #### [facility] [address] [place] [address] Dr. Cuba Weber Glucose [Mass/Vol] 107 mg/dL Critically high 74-106 [facility] Comment on above: Performed By: #### R SPLUS #### [facility] [address] [place] [address] Dr. Cuba Weber Potassium [Moles/Vol] 4.2 mmol/L Normal 3.5-5.1 [facility] Comment on above: Performed By: #### R SPLUS #### [facility] [address] [address] [address] Cuba Weber Protein [Mass/Vol] 5.8 g/dL Critically low 6.4-8.2 Th [facility] Comment on above: Performed By: #### R SPLUS #### [facility] [address] [place] [address] Dr. Cuba Weber Sodium [Moles/Vol] 133 mmol/L Critically low 136-145 Th [facility] Comment on above: Performed By: #### R SPLUS #### [facility] [address] [place] [address] Dr. Cuba Weber Urea nitrogen [Mass/Vol] 27.0 mg/dL Critically high 7.0-18.0 [facility] Comment on above: Performed By: #### R SPLUS #### [facility] [address] [place] [address] Dr. Cuba Weber Urea nitrogen/Creatinine [Mass ratio] 17.6 mg/mg Normal [facility] Comment on above: Performed By: #### R SPLUS #### [facility] [address] [place] [address] Dr. Cuba Weber C. DIFF PCRon 07-20-2022 C. DIFFICILE PCR Negative Normal NEGATIVE [facility] [place] Comment on above: Performed By: #### L ACT #### [facility] [address] [place] [address] Dr. Cuba Weber CBC W MANUAL DIFFon 07-21-19 ANISOCYTOSIS 1+ Normal [facility] Comment on above: Performed By: #### C BCMAN #### [facility] [address] [place] [address] Dr. Cuba Weber ATYPICAL LYMPH # Normal [facility] Comment on above: Performed By: #### C BCMAN #### [facility] [address] [place] [address] Dr. Cuba Weber ATYPICAL LYMPH % Normal [facility] Comment on above: Performed By: #### C BCMAN #### [facility] [address] [place] [address] Dr. Cuba Weber BAND # 0.7 103/ul Critically high 0.0-0.3 The [facility] Comment on above: Performed By: #### C BCMAN #### [facility] [address] [place] [address] Dr. Cuba Weber BAND % 11 % Critically high 0-5 The [facility] Comment on above: Performed By: #### C YAHIR #### [facility] [address] [place] [address] Dr. Cuba Weber BASOM # 0.00 103/ul Normal 0.00-0.10 [facility] Comment on above: Performed By: #### C YAHIR #### [facility] [address] [place] [address] Dr. Cuba Weber BASOM % 0.0 % Critically low 0.2-2.0 [facility] Comment on above: Performed By: #### C YAHIR #### [facility] [address] [place] [address] Dr. Cuba Weber BLAST # Normal [facility] Comment on above: Performed By: #### C YAHIR #### [facility] [address] [place] [address] Dr. Cuba Weber BLAST % Normal [facility] Comment on above: Performed By: #### C YAHIR #### [facility] [address] [place] [address] Dr. Cuba Weber CORRECTED WBC Normal 4.0-11.0 The [facility] Comment on above: Performed By: #### C BCTERE #### [facility] [address] [place] [address] Dr. Cuba Weber EOS # 0.06 103/ul Normal 0.00-0.70 [facility] Comment on above: Performed By: #### C BCTERE #### [facility] [address] [place] [address] Dr. Cuba Weber EOS% 1.0 % Normal 0.9-7.0 [facility] Comment on above: Performed By: #### C YAHIR #### [facility] [address] [place] [address] Dr. Cuba Weber HCT 34.7 % Critically low 42.0-54.0 [facility] Comment on above: Performed By: #### C YAHIR #### [facility] [address] [address] [address] Cuba Weber HGB 11.7 g/dl Critically low 14.0-18.0 [facility] Comment on above: Performed By: #### C YAHIR #### [facility] [address] [address] [address] Cuba Weber LYMPHM # 0.48 103/ul Critically low 1.20-3.80 [facility] Comment on above: Performed By: #### C YAHIR #### [facility] [address] [place] [address] Dr. Cuba Weber LYMPHM% 8.0 % Critically low 20.5-60.0 [facility] Comment on above: Performed By: #### C YAHIR #### [facility] [address] [place] [address] Dr. Cuba Weber MCH 28.4 pg Normal 25.9-34.0 [facility] Comment on above: Performed By: #### C YAHIR #### [facility] [address] [place] [address] Dr. Cuba Weber MCHC 33.7 g/dl Normal 29.9-35.2 [facility] Comment on above: Performed By: #### C YAHIR #### [facility] [address] [address] [address] Cuba Weber MCV 84.2 fL Normal 80.0-94.0 [facility] Comment on above: Performed By: #### C YAHIR #### [facility] [address] [place] [address] Dr. Cuba Weber METAMYELOCYTE # Normal [facility] Comment on above: Performed By: #### C YAHIR #### [facility] [address] [place] [address] Dr. Cuba Weber METAMYELOCYTE % Normal The [facility] Comment on above: Performed By: #### C YAHIR #### [facility] [address] [address] [address] Cuba Weber MONOM# 0.18 103/ul Critically low 0.30-0.80 [facility] Comment on above: Performed By: #### C YAHIR #### [facility] [address] [address] [address] Cuba Weber MONOM% 3.0 % Normal 1.7-12.0 [facility] Comment on above: Performed By: #### C YAHIR #### [facility] [address] [address] [address] Cuba Weber MPV 10.6 fL Normal 9.5-13.5 [facility] Comment on above: Performed By: #### C YAHIR #### [facility] [address] [place] [address] Dr. Cuba Weber MYELOCYTE # Normal [facility] Comment on above: Performed By: #### C YAHIR #### [facility] [address] [address] [address] Cuba Weber MYELOCYTE % Normal [facility] Comment on above: Performed By: #### C YAHIR #### [facility] [address] [place] [address] Dr. Cuba Weber NRBC Normal [facility] Comment on above: Performed By: #### C YAHIR #### [facility] [address] [address] [address] Cuba Weber PLT 80 103/ul Critically low 150-450 [facility] Comment on above: Performed By: #### C YAHIR #### [facility] [address] [address] [address] Cuba Weber RBC 4.12 106/ul Critically low 4.70-6.10 The [facility] Comment on above: Performed By: #### C YAHIR #### [facility] [address] [address] [address] Cuba Weber RDW 14.9 % Normal 11.0-15.0 [facility] Comment on above: Performed By: #### C YAHIR #### [facility] [address] [address] [address] Cuba Weber SEG # 4.62 103/ul Normal 1.40-6.50 [facility] Comment on above: Performed By: #### C BCMAN #### [facility] [address] [place] [address] Dr. Cuba Weber SEG % 77.0 % Critically high 43.0-75.0 The [facility] Comment on above: Performed By: #### C BCMAN #### [facility] [address] [place] [address] Dr. Cuba Weber WBC 6.0 103/ul Normal 4.0-11.0 [facility] Comment on above: Performed By: #### C BCMAN #### [facility] [address] [place] [address] Dr. Cuba Weber ATYPICAL LYMPH # Normal [facility] Comment on above: Performed By: #### L ACT #### [facility] [address] [place] [address] Dr. Cuba Weber ATYPICAL LYMPH % Normal [facility] Comment on above: Performed By: #### L ACT #### [facility] [address] [place] [address] Dr. Cuba Weber BAND # 1.9 103/ul Critically high 0.0-0.3 The [facility] Comment on above: Performed By: #### L ACT #### [facility] [address] [place] [address] Dr. Cuba Weber BAND % 10 % Critically high 0-5 The [facility] Comment on above: Performed By: #### L ACT #### [facility] [address] [place] [address] Dr. Cuba Weber BASOM # 0.00 103/ul Normal 0.00-0.10 [facility] Comment on above: Performed By: #### L ACT #### [facility] [address] [place] [address] Dr. Cuba Weber BASOM % 0.0 % Critically low 0.2-2.0 [facility] Comment on above: Performed By: #### L ACT #### [facility] [address] [place] [address] Dr. Cuba Weber BLAST # Normal [facility] Comment on above: Performed By: #### L ACT #### [facility] [address] [place] [address] Dr. Cuba Weber BLAST % Normal [facility] Comment on above: Performed By: #### L ACT #### [facility] [address] [place] [address] Dr. Cuba Weber CORRECTED WBC Normal 4.0-11.0 [facility] Comment on above: Performed By: #### L ACT #### [facility] [address] [place] [address] Dr. Cuba Weber EOS # 0.00 103/ul Normal 0.00-0.70 [facility] Comment on above: Performed By: #### L ACT #### [facility] [address] [place] [address] Dr. Cuba Weber EOS% 0.0 % Critically low 0.9-7.0 [facility] Comment on above: Performed By: #### L ACT #### [facility] [address] [place] [address] Dr. Cuba Weber HCT 31.9 % Critically low 42.0-54.0 [facility] Comment on above: Performed By: #### L ACT #### [facility] [address] [place] [address] Dr. Cuba Weber HGB 10.6 g/dl Critically low 14.0-18.0 [facility] Comment on above: Performed By: #### L ACT #### [facility] [address] [place] [address] Dr. Cuba Weber LYMPHM # 1.15 103/ul Critically low 1.20-3.80 [facility] Comment on above: Performed By: #### L ACT #### [facility] [address] [place] [address] Dr. Cuba Weber LYMPHM% 6.0 % Critically low 20.5-60.0 [facility] Comment on above: Performed By: #### L ACT #### [facility] [address] [address] [address] Cuba Weber MCH 28.5 pg Normal 25.9-34.0 [facility] Comment on above: Performed By: #### L ACT #### [facility] [address] [place] [address] Dr. Cuba Weber MCHC 33.2 g/dl Normal 29.9-35.2 [facility] Comment on above: Performed By: #### L ACT #### [facility] [address] [place] [address] Dr. Cuba Weber MCV 85.8 fL Normal 80.0-94.0 [facility] Comment on above: Performed By: #### L ACT #### [facility] [address] [place] [address] Dr. Cuba Weber METAMYELOCYTE # Normal [facility] Comment on above: Performed By: #### L ACT #### [facility] [address] [place] [address] Dr. Cuba Weber METAMYELOCYTE % Normal [facility] Comment on above: Performed By: #### L ACT #### [facility] [address] [place] [address] Dr. Cuba Weber MONOM# 0.00 103/ul Critically low 0.30-0.80 [facility] Comment on above: Performed By: #### L ACT #### [facility] [address] [place] [address] Dr. Cuba Weber MONOM% 0.0 % Critically low 1.7-12.0 [facility] Comment on above: Performed By: #### L ACT #### [facility] [address] [place] [address] Dr. Cuba Weber MPV 10.7 fL Normal 9.5-13.5 [facility] Comment on above: Performed By: #### L ACT #### [facility] [address] [place] [address] Dr. Cuba Weber MYELOCYTE # Normal [facility] Comment on above: Performed By: #### L ACT #### [facility] [address] [address] [address] Cuba Weber MYELOCYTE % Normal [facility] Comment on above: Performed By: #### L ACT #### [facility] [address] [address] [address] Cuba Weber NRBC Normal [facility] Comment on above: Performed By: #### L ACT #### [facility] [address] [address] [address] Cuba Weber PLT 93 103/ul Critically low 150-450 [facility] Comment on above: Performed By: #### L ACT #### [facility] [address] [address] [address] Cuba Weber RBC 3.72 106/ul Critically low 4.70-6.10 [facility] Comment on above: Performed By: #### L ACT #### [facility] [address] [place] [address] Dr. Cuba Weber RDW 14.7 % Normal 11.0-15.0 [facility] Comment on above: Performed By: #### L ACT #### [facility] [address] [address] [address] Cuba Webre SEG # 16.13 103/ul Critically high 1.40-6.50 [facility] Comment on above: Performed By: #### L ACT #### [facility] [address] [address] [address] Cuba Weber SEG % 84.0 % Critically high 43.0-75.0 [facility] Comment on above: Performed By: #### L ACT #### [facility] [address] [address] [address] Cuba Weber WBC 19.2 103/ul Critically high 4.0-11.0 [facility] Comment on above: Performed By: #### L ACT #### [facility] [address] [address] [address] ABD/PELVIS WO CONon [...] MINERVA REN Date: 2022-07-20 16:47 Normal [facility] MAGNESIUMon 07-20-2022 Magnesium [Mass/Vol] 1.5 mg/dL Critically low 1.8-2.4 [facility] Comment on above: Performed By: #### L ACT #### [facility] [address] [place] [address] Dr. Cuba Weber Magnesium [Mass/Vol] 1.3 mg/dL Critically low 1.8-2.4 [facility] Comment on above: Performed By: #### M G, CMP ####[facility] [address] [address] Cuba Weber PROF 14(COMP METB)on 023 Albumin [Mass/Vol] 2.7 g/dL Critically low 3.4-5.0 [facility] Comment on above: Performed By: #### L ACT #### [facility] [address] [address] [address] Cuba Weber Albumin/Globulin [Mass ratio] 0.7 {ratio} Normal [facility] Comment on above: Performed By: #### L ACT #### [facility] [address] [address] [address] Cuba Weber ALP [Catalytic activity/Vol] 89 U/L Normal 46-116 [facility] Comment on above: Performed By: #### L ACT #### [facility] [address] [address] [address] Cuba Weber ALT [Catalytic activity/Vol] 42 U/L Normal 16-63 [facility] Comment on above: Performed By: #### L ACT #### [facility] [address] [place] [address] Dr. Cuba Weber Anion gap [Moles/Vol] 19.1 mmol/L Normal [facility] Comment on above: Performed By: #### L ACT #### [facility] [address] [address] [address] Cuba Weber AST [Catalytic activity/Vol] 60 U/L Critically high 15-37 [facility] Comment on above: Performed By: #### L ACT #### [facility] [address] [address] [address] Cuba Weber Bilirubin [Mass/Vol] 1.9 mg/dL Critically high 0.2-1.0 [facility] Comment on above: Performed By: #### L ACT #### [facility] [address] [place] [address] Dr. Cuba Weber Calcium [Mass/Vol] 8.2 mg/dL Critically low 8.5-10.1 Th e [facility] Comment on above: Performed By: #### L ACT #### [facility] [address] [address] [address] Cuba Weber Chloride [Moles/Vol] 102 mmol/L Normal 98-107 [facility] Comment on above: Performed By: #### L ACT #### [facility] [address] [address] [address] Cuba Weber CO2 [Moles/Vol] 20.2 mmol/L Critically low 21.0-32.0 [facility] Comment on above: Performed By: #### L ACT #### [facility] [address] [place] [address] Dr. Cuba Weber Creatinine [Mass/Vol] 2.29 mg/dL Critically high 0.70-1.30 [facility] Comment on above: Performed By: #### L ACT #### [facility] [address] [place] [address] Dr. Cuba Weber EGFR-AF LAO 35 mL/min/1.73m2 Critically low >=60 [facility] Comment on above: Performed By: #### L ACT #### [facility] [address] [place] [address] Dr. Cuba Weber EGFR-NON AF LAO 29 mL/min/1.73m2 Critically low >=60 [facility] Comment on above: Performed By: #### L ACT #### [facility] [address] [place] [address] Dr. Cuba Weber Globulin (S) [Mass/Vol] 3.9 g/dL Normal T [facility] Comment on above: Performed By: #### L ACT #### [facility] [address] [place] [address] Dr. Cuba Weber Glucose [Mass/Vol] 78 mg/dL Normal 74-106 [facility] Comment on above: Performed By: #### L ACT #### [facility] [address] [place] [address] Dr. Cuba Weber Potassium [Moles/Vol] 4.3 mmol/L Normal 3.5-5.1 [facility] Comment on above: Performed By: #### L ACT #### [facility] [address] [address] [address] Cuba Weber Protein [Mass/Vol] 6.6 g/dL Normal 6.4-8.2 [facility] Comment on above: Performed By: #### L ACT #### [facility] [address] [address] [address] Cuba Weber Sodium [Moles/Vol] 137 mmol/L Normal 136-145 [facility] Comment on above: Performed By: #### L ACT #### [facility] [address] [address] [address] Cuba Weber Urea nitrogen [Mass/Vol] 30.0 mg/dL Critically high 7.0-18.0 [facility] Comment on above: Performed By: #### L ACT #### [facility] [address] [address] [address] Cuba Weber Urea nitrogen/Creatinine [Mass ratio] 13.1 mg/mg Normal [facility] Comment on above: Performed By: #### L ACT #### [facility] [address] [address] [address] Cuba Weber Albumin [Mass/Vol] 2.4 g/dL Critically low 3.4-5.0 [facility] Comment on above: Performed By: #### M G, CMP ####[facility] [address] [address] Cuba Weber Albumin/Globulin [Mass ratio] 0.7 {ratio} Normal [facility] Comment on above: Performed By: #### M G, CMP ####[facility] [address] [address] Cuba Weber ALP [Catalytic activity/Vol] 65 U/L Normal 46-116 [facility] Comment on above: Performed By: #### M G, CMP ####[facility] [address] [address]Dr. Cuba Weber ALT [Catalytic activity/Vol] 33 U/L Normal 16-63 [facility] Comment on above: Performed By: #### Dusty Dunham, CMP ####[facility] [address] [place], [place] [address]Dr. Cuba Weber Anion gap [Moles/Vol] 14.1 mmol/L Normal Th [facility] Comment on above: Performed By: #### Dusty Dunham, CMP ####[facility] [address] [place], [place] [address]Dr. Cuba Weber AST [Catalytic activity/Vol] 42 U/L Critically high 15-37 [facility] Comment on above: Performed By: #### Dusty Dunham, CMP ####[facility] [address] [place], [place] [address]Dr. Cuba Weber Bilirubin [Mass/Vol] 1.5 mg/dL Critically high 0.2-1.0 [facility] Comment on above: Performed By: #### Dusty Dunham, CMP ####[facility] [address] [place], [place] [address]Dr. Sharynshasta Weber Calcium [Mass/Vol] 7.8 mg/dL Critically low 8.5-10.1 [facility] Comment on above: Performed By: #### Dusty Dunham, CMP ####[facility] [address] [place], [place] [address]Dr. Cuba Weber Chloride [Moles/Vol] 104 mmol/L Normal 98-107 [facility] Comment on above: Performed By: #### Dusty Dunham, CMP ####[facility] [address] [place], [place] [address]Dr. Sharynshasta Weber CO2 [Moles/Vol] 20.8 mmol/L Critically low 21.0-32.0 [facility] Comment on above: Performed By: #### Dusty Dunham, CMP ####[facility] [address] [place], [place] [address]Dr. Cuba Weber Creatinine [Mass/Vol] 2.41 mg/dL Critically high 0.70-1.30 [facility] Comment on above: Performed By: #### Dusty Dunham, CMP ####[facility] [address] [address] Cuba Weber EGFR-AF LAO 33 mL/min/1.73m2 Critically low >=60 [facility] Comment on above: Performed By: #### M G, CMP ####[facility] [address] [place], [place] [address]Dr. Cuba Weber EGFR-NON AF LAO 27 mL/min/1.73m2 Critically low >=60 [facility] Comment on above: Performed By: #### M G, CMP ####[facility] [address] [place], [place] [address]Dr. Cuba Weber Globulin (S) [Mass/Vol] 3.5 g/dL Normal T [facility] Comment on above: Performed By: #### M Charla, CMP ####[facility] [address] [place], [place] [address]Dr. Cuba Weber Glucose [Mass/Vol] 85 mg/dL Normal 74-106 [facility] Comment on above: Performed By: #### M Charla, CMP ####[facility] [address] [place], [place] [address]Dr. Cuba Gus Potassium [Moles/Vol] 3.9 mmol/L Normal 3.5-5.1 [facility] Comment on above: Performed By: #### M Charla, CMP ####[facility] [address] [place], [place] [address]Dr. Cuba Weber Protein [Mass/Vol] 5.9 g/dL Critically low 6.4-8.2 [facility] Comment on above: Performed By: #### M G, CMP ####[facility] [address] [place], [place] [address]Dr. Cuba Weber Sodium [Moles/Vol] 135 mmol/L Critically low 136-145 [facility] Comment on above: Performed By: #### M G, CMP ####[facility] [address] [place], [place] [address]Dr. Sharynshasta Gus Urea nitrogen [Mass/Vol] 36.0 mg/dL Critically high 7.0-18.0 [facility] Comment on above: Performed By: #### M Charla, CMP ####[facility] [address] [address]Dr. Cuba Weber Urea nitrogen/Creatinine [Mass ratio] 14.9 mg/mg Normal [facility] [facility] Comment on above: Performed By: #### M G, CMP ####[facility] [address] [address]Dr. [place] Weber UA RANDOMon 07-20-2022 Bilirubin Ql (U) Negative Normal NEGATIVE [facility] [place] Comment on above: Performed By: #### R SPLUS #### [facility] [address] [address] [address] Cuba Weber Clarity (U) CLEAR Normal CLEAR [facility] Comment on above: Performed By: #### R SPLUS #### [facility] [address] [place] [address] Dr. Cuba Weber Color (U) YELLOW Normal YELLOW [facility] Comment on above: Performed By: #### R SPLUS #### [facility] [address] [address] [address] Cuba Weber Glucose Ql (U) Negative Normal NEGATIVE [facility] Comment on above: Performed By: #### R SPLUS #### [facility] [address] [address] [address] Cuba Weber Hemoglobin Ql (U) LARGE Abnormal NEGATIVE [facility] Comment on above: Performed By: #### R SPLUS #### [facility] [address] [address] [address] Cuba Weber Ketones Ql (U) Negative Normal NEGATIVE [facility] Comment on above: Performed By: #### R SPLUS #### [facility] [address] [address] [address] Cuba Weber LEUKOCYTES LARGE Abnormal NEGATIVE [facility] Comment on above: Performed By: #### R SPLUS #### [facility] [address] [address] [address] Cuba Weber Nitrite Ql (U) Negative Normal NEGATIVE [facility] Comment on above: Performed By: #### R SPLUS #### [facility] [address] [place] [address] Dr. Cuba Weber pH (U) 6.5 [pH] Normal 5-9 [facility] Comment on above: Performed By: #### R SPLUS #### [facility] [address] [place] [address] Dr. Cuba Weber SPEC GRAVITY <=1.005 Abnormal 1.005-<=1.02 5 [facility] Comment on above: Performed By: #### R SPLUS #### [facility] [address] [place] [address] Dr. Cuba Weber UA PROTEIN 100 mg/dl Abnormal NEGATIVE/ TRACE [facility] Comment on above: Performed By: #### R SPLUS #### [facility] [address] [place] [address] Dr. Cuba Weber Urobilinogen Qn (U) 1.0 {Kalina'U}/dL Normal 0.2 - 1. 0 [facility] Comment on above: Performed By: #### R SPLUS #### [facility] [address] [place] [address] Dr. Cuba Weber BLOOD CULTURE ID PANELon A. baumannii Not detected Normal NOT DETECTED [facility] Comment on above: Performed By: #### L ACT #### [facility] [address] [place] [address] Dr. Cuba Weber Bacteriodes fragilis Not detected Normal NOT DETECTED [facility] Comment on above: Performed By: #### L ACT #### [facility] [address] [place] [address] Dr. Cuba Weber BCID CONTROLS PASSED Normal [facility] Comment on above: Performed By: #### L ACT #### [facility] [address] [place] [address] Dr. Cuba Weber BCIDBTHD BLOOD CULTURE BOTTLE INFORMATION Normal [facility] Comment on above: Performed By: #### L ACT #### [facility] [address] [place] [address] Dr. Cuba Weber BCIDHD1 ANTIMICROBIAL RESISTANCE GENES Normal [facility] Comment on above: Performed By: #### L ACT #### [facility] [address] [address] [address] Cuba Weber BCIDHD2 SEE BELOW Normal [facility] Comment on above: Result Comment: Note : Antimicrobial resitance can occur via multiple mechanisms. A Not Detected result for the [employer] antomicrobial resistance gene assays does not indicate antimicrobial susceptibility. Subculturing is required for species identification and susceptibility testing of isolates. Performed By: #### L ACT #### [facility] [address] [address] [address] Cuba Weber BCIDHD3 Positive Normal [facility] Comment on above: Performed By: #### L ACT #### [facility] [address] [address] [address] Cuba Weber BCIDHD4 Negative Normal [facility] Comment on above: Performed By: #### L ACT #### [facility] [address] [place] [address] Dr. Cuba Weber BCIDHD5 YEAST Normal [facility] Comment on above: Performed By: #### L ACT #### [facility] [address] [address] [address] Cuba Weber Bottle Set: Set 1 Normal [facility] Comment on above: Performed By: #### L ACT #### [facility] [address] [place] [address] Dr. Cuba Weber Bottle: Aerobic Normal [facility] Comment on above: Performed By: #### L ACT #### [facility] [address] [place] [address] Dr. Cuba Weber C. neoformans/gattii Not detected Normal NOT DETECTED [facility] Comment on above: Performed By: #### L ACT #### [facility] [address] [address] [address] Cuba Weber Marleny albicans Not detected Normal NOT DETECTED [facility] Comment on above: Performed By: #### L ACT #### [facility] [address] [address] [address] Cuba Weber Marleny auris Not detected Normal NOT DETECTED [facility] Comment on above: Performed By: #### L ACT #### [facility] [address] [address] [address] Cuba Weber Marleny glabrata Not detected Normal NOT DETECTED [facility] Comment on above: Performed By: #### L ACT #### [facility] [address] [address] [address] Cuba Weber Marleny Krusei Not detected Normal NOT DETECTED [facility] Comment on above: Performed By: #### L ACT #### [facility] [address] [address] [address] Cuba Weber Marleny Parapsilosis Not detected Normal NOT DETECTED [facility] Comment on above: Performed By: #### L ACT #### [facility] [address] [address] [address] Cuba Weber Marleny Tropicalis Not detected Normal NOT DETECTED [facility] Comment on above: Performed By: #### L ACT #### [facility] [address] [place] [address] Dr. Cuba Weber CTX-M Resistant Gene Detected Abnormal NOT DETECTED [facility] Comment on above: Performed By: #### L ACT #### [facility] [address] [place] [address] Dr. Cuba Weber E. Cloacae complex Not detected Normal NOT DETECTED [facility] Comment on above: Performed By: #### L ACT #### [facility] [address] [place] [address] Dr. Cuba Weber E. faecalis Not detected Normal NOT DETECTED [facility] Comment on above: Performed By: #### L ACT #### [facility] [address] [place] [address] Dr. Cuba Weber E. faecium Not detected Normal NOT DETECTED [facility] Comment on above: Performed By: #### L ACT #### [facility] [address] [place] [address] Dr. Cuba Weber Enterobacteriaceae Detected Critically abnormal NOT DETECTED [facility] Comment on above: Performed By: #### L ACT #### [facility] [address] [address] [address] Cuba Weber Escherichia coli Not detected Normal NOT DETECTED [facility] Comment on above: Performed By: #### L ACT #### [facility] [address] [address] [address] Cuba Weber H. influenzae Not detected Normal NOT DETECTED [facility] Comment on above: Performed By: #### L ACT #### [facility] [address] [address] [address] Cuba Weber IMP Resistant Gene Not detected Normal NOT DETECTED [facility] Comment on above: Performed By: #### L ACT #### [facility] [address] [place] [address] Dr. Cuba Weber K. oxytoca Not detected Normal NOT DETECTED [facility] Comment on above: Performed By: #### L ACT #### [facility] [address] [place] [address] Dr. Cuba Weber K. pneumoniae Detected Critically abnormal NOT DETECTED [facility] Comment on above: Performed By: #### L ACT #### [facility] [address] [place] [address] Dr. Cuba Weber Klebsiella aerogenes Not detected Normal NOT DETECTED [facility] Comment on above: Performed By: #### L ACT #### [facility] [address] [place] [address] Dr. Cuba Weber KPC Resistant Gene Not detected Normal NOT DETECTED [facility] Comment on above: Performed By: #### L ACT #### [facility] [address] [place] [address] Dr. Cuba Weber List. monocytogenes Not detected Normal NOT DETECTED [facility] Comment on above: Performed By: #### L ACT #### [facility] [address] [place] [address] Dr. Cuba Weber Mcr-1 Resistant Gene Not detected Normal NOT DETECTED [facility] Comment on above: Performed By: #### L ACT #### [facility] [address] [place] [address] Dr. Cuba Weber mecA/C Not Applicable Normal NOT DETECTED [facility] Comment on above: Performed By: #### L ACT #### [facility] [address] [place] [address] Dr. Cuba Weber mecA/C MREJ Not Applicable Normal NOT DETECTED [facility] Comment on above: Performed By: #### L ACT #### [facility] [address] [place] [address] Dr. Cuba Weber N. meningitidis Not detected Normal NOT DETECTED [facility] Comment on above: Performed By: #### L ACT #### [facility] [address] [place] [address] Dr. Cuba Weber NDM Resistant Gene Not detected Normal NOT DETECTED [facility] Comment on above: Performed By: #### L ACT #### [facility] [address] [place] [address] Dr. Cuba Weber Oxa-48-like Not detected Normal NOT DETECTED [facility] Comment on above: Performed By: #### L ACT #### [facility] [address] [place] [address] Dr. Cuba Weber Proteus Not detected Normal NOT DETECTED [facility] Comment on above: Performed By: #### L ACT #### [facility] [address] [place] [address] Dr. Cuba Weber Pseud. aeruginosa Not detected Normal NOT DETECTED [facility] Comment on above: Performed By: #### L ACT #### [facility] [address] [place] [address] Dr. Cuba Weber S. maltophilia Not detected Normal NOT DETECTED [facility] Comment on above: Performed By: #### L ACT #### [facility] [address] [place] [address] Dr. Cuba Weber Salmonella Not detected Normal NOT DETECTED [facility] Comment on above: Performed By: #### L ACT #### [facility] [address] [place] [address] Dr. Cuba Weber Seratia marcescens Not detected Normal NOT DETECTED [facility] Comment on above: Performed By: #### L ACT #### [facility] [address] [place] [address] Dr. Cuba Weber Site: Rt Ac Normal [facility] Comment on above: Performed By: #### L ACT #### [facility] [address] [place] [address] Dr. Cuba Weber Staph. aureus Not detected Normal NOT DETECTED [facility] Comment on above: Performed By: #### L ACT #### [facility] [address] [place] [address] Dr. Cuba Weber Staph. epidermidis Not detected Normal NOT DETECTED [facility] Comment on above: Performed By: #### L ACT #### [facility] [address] [place] [address] Dr. Cuba Weber Staph. lugdunensis Not detected Normal NOT DETECTED [facility] Comment on above: Performed By: #### L ACT #### [facility] [address] [place] [address] Dr. Cuba Weber Staphylococcus Not detected Normal NOT DETECTED [facility] Comment on above: Performed By: #### L ACT #### [facility] [address] [place] [address] Dr. Cuba Weber Strep. agalactiae Not detected Normal NOT DETECTED [facility] Comment on above: Performed By: #### L ACT #### [facility] [address] [place] [address] Dr. Cuba Weber Strep. pneumoniae Not detected Normal NOT DETECTED [facility] Comment on above: Performed By: #### L ACT #### [facility] [address] [place] [address] Dr. Cuba Weber Strep. pyogenes Not detected Normal NOT DETECTED [facility] Comment on above: Performed By: #### L ACT #### [facility] [address] [place] [address] Dr. Cuba Weber Streptococcus Not detected Normal NOT DETECTED [facility] Comment on above: Performed By: #### L ACT #### [facility] [address] [place] [address] Dr. Cuba Weber Wilbert/B Resist. Gene Not Applicable Normal NOT DETECTED [facility] Comment on above: Performed By: #### L ACT #### [facility] [address] [place] [address] Dr. Cuba Weber VIM Resistant Gene Not detected Normal NOT DETECTED [facility] Comment on above: Performed By: #### L ACT #### [facility] [address] [place] [address] Dr. Cuba Weber CBC W MANUAL DIFFon 07-20-19 23 ANISOCYTOSIS 1+ Normal [facility] Comment on above: Performed By: #### C BCMAN #### [facility] [address] [place] [address] Dr. Cuba Weber ATYPICAL LYMPH # Normal [facility] [place] Comment on above: Performed By: #### C BCMAN #### [facility] [address] [place] [address] Dr. Cuba Weber ATYPICAL LYMPH % Normal [facility] [place] Comment on above: Performed By: #### C BCMAN #### [facility] [address] [place] [address] Dr. Cuba Weber BAND # 0.1 103/ul Normal 0.0-0.3 [facility] Comment on above: Performed By: #### C BCMAN #### [facility] [address] [place] [address] Dr. Cuba Weber BAND % 1 % Normal 0-5 [facility] Comment on above: Performed By: #### C BCMAN #### [facility] [address] [place] [address] Dr. Cuba Weber BASOM # 0.00 103/ul Normal 0.00-0.10 [facility] Comment on above: Performed By: #### C BCMAN #### [facility] [address] [place] [address] Dr. Cuba Weber BASOM % 0.0 % Critically low 0.2-2.0 [facility] Comment on above: Performed By: #### C BCMAN #### [facility] [address] [place] [address] Dr. Cuba Weber BLAST # Normal [facility] Comment on above: Performed By: #### C BCMAN #### [facility] [address] [place] [address] Dr. Cuba Weber BLAST % Normal [facility] Comment on above: Performed By: #### C BCTERE #### [facility] [address] [address] [address] Cuba Weber CORRECTED WBC Normal 4.0-11.0 [facility] Comment on above: Performed By: #### C BCTERE #### [facility] [address] [address] [address] Cuba Weber EOS # 0.00 103/ul Normal 0.00-0.70 [facility] Comment on above: Performed By: #### C BCTERE #### [facility] [address] [address] [address] Cuba Weber EOS% 0.0 % Critically low 0.9-7.0 [facility] Comment on above: Performed By: #### C YAHIR #### [facility] [address] [address] [address] Cuba Weber HCT 39.0 % Critically low 42.0-54.0 [facility] Comment on above: Performed By: #### C YAHIR #### [facility] [address] [address] [address] Cuba Weber HGB 13.2 g/dl Critically low 14.0-18.0 [facility] Comment on above: Performed By: #### C YAHIR #### [facility] [address] [address] [address] Cuba Weber LYMPHM # 0.67 103/ul Critically low 1.20-3.80 [facility] Comment on above: Performed By: #### C BCTERE #### [facility] [address] [address] [address] Cuba Weber LYMPHM% 7.0 % Critically low 20.5-60.0 [facility] Comment on above: Performed By: #### C YAHIR #### [facility] [address] [address] [address] Cuba Weber MCH 28.6 pg Normal 25.9-34.0 [facility] Comment on above: Performed By: #### C YAHIR #### [facility] [address] [place] [address] Dr. Cuba Weber MCHC 33.8 g/dl Normal 29.9-35.2 [facility] Comment on above: Performed By: #### C BCMAN #### [facility] [address] [place] [address] Dr. Cuba Weber MCV 84.6 fL Normal 80.0-94.0 [facility] Comment on above: Performed By: #### C BCTERE #### [facility] [address] [place] [address] Dr. Cuba Weber METAMYELOCYTE # Normal [facility] Comment on above: Performed By: #### C YAHIR #### [facility] [address] [place] [address] Dr. Cuba Weber METAMYELOCYTE % Normal [facility] Comment on above: Performed By: #### C YAHIR #### [facility] [address] [place] [address] Dr. Cuba Weber MONOM# 0.29 103/ul Critically low 0.30-0.80 [facility] Comment on above: Performed By: #### C YAHIR #### [facility] [address] [place] [address] Dr. Cuba Weber MONOM% 3.0 % Normal 1.7-12.0 [facility] Comment on above: Performed By: #### C YAHIR #### [facility] [address] [place] [address] Dr. Cuba Weber MPV 10.1 fL Normal 9.5-13.5 [facility] Comment on above: Performed By: #### C YAHIR #### [facility] [address] [place] [address] Dr. Cuba Weber MYELOCYTE # Normal [facility] Comment on above: Performed By: #### C YAHIR #### [facility] [address] [place] [address] Dr. Cuba Weber MYELOCYTE % Normal [facility] Comment on above: Performed By: #### C YAHIR #### [facility] [address] [place] [address] Dr. Cuba Weber NRBC Normal [facility] Comment on above: Performed By: #### C BCMAN #### [facility] [address] [address] [address] Cuba Wbeer PLT 115 103/ul Critically low 150-450 [facility] Comment on above: Performed By: #### C BCMAN #### [facility] [address] [address] [address] Cuba Weber RBC 4.61 106/ul Critically low 4.70-6.10 [facility] Comment on above: Performed By: #### C BCMAN #### [facility] [address] [place] [address] Dr. Cuba Weber RDW 14.3 % Normal 11.0-15.0 [facility] Comment on above: Performed By: #### C BCMAN #### [facility] [address] [place] [address] Dr. Cuba Weber SEG # 8.54 103/ul Critically high 1.40-6.50 [facility] [place] Comment on above: Performed By: #### C BCMAN #### [facility] [address] [place] [address] Dr. Cuba Weber SEG % 89.0 % Critically high 43.0-75.0 [facility] Comment on above: Performed By: #### C BCMAN #### [facility] [address] [place] [address] Dr. Cuba Weber WBC 9.6 103/ul Normal 4.0-11.0 [facility] Comment on above: Performed By: #### C BCMAN #### [facility] [address] [place] [address] Dr. Cuba Weber CULTURE BLOODon 07-19-2022 Microscopic examination of blood, culture Culture Observations: Pediatric bottle positive; BCID= Klebsiella Pneumoniae Culture Observations: Refer to accession #[id number] for susceptibilities. Isolate 1 Klebsiella pneumoniae Growth of Normal [facility] Comment on above: Performed By: #### C BC #### [facility] [address] [place] [address] Dr. Cuba Weber LACTATE/LACTIC ACIDon 2022 Lactate [Moles/Vol] 2.9 mmol/L Critically high 0.4-2.0 [facility] Comment on above: Performed By: #### C BC #### [facility] [address] [address] [address] Cuba Weber Lactate [Moles/Vol] 3.4 mmol/L Critically high 0.4-2.0 [facility] Comment on above: Performed By: #### L ACT #### [facility] [address] [address] [address] Cuba Weber OCC BLD IMMUNO SCREENon 06-27 OCCULT BLOOD Negative Normal NEGATIVE [facility] Comment on above: Performed By: #### O BSCRN ####[facility] [address] [address]DrGlory Weber PROF CHEM 8 (BAS METB)on Anion gap [Moles/Vol] 15.1 mmol/L Normal [facility] Comment on above: Performed By: #### B MP, HSTROPN ####[facility] [address] [address]DrGlory Weber Calcium [Mass/Vol] 8.6 mg/dL Normal 8.5-10.1 [facility] Comment on above: Performed By: #### B MP, HSTROPN ####[facility] [address] [id number] Weber Chloride [Moles/Vol] 99 mmol/L Normal 98-107 [facility] Comment on above: Performed By: #### B MP, HSTROPN ####[facility] [address] [id number] Weber CO2 [Moles/Vol] 21.5 mmol/L Normal 21.0-32.0 [facility] [place] Comment on above: Performed By: #### B MP, HSTROPN ####[facility] [address] [id number] Weber Creatinine [Mass/Vol] 2.93 mg/dL Critically high 0.70-1.30 [facility] Comment on above: Performed By: #### B VERNA, HSTROPN ####[facility] [address] [address]Dr. Cuba Weber EGFR-AF LAO 26 mL/min/1.73m2 Critically low >=60 [facility] Comment on above: Performed By: #### B VERNA, HSTROPN ####[facility] [address] [address]. Cuba Weber EGFR-NON AF LAO 22 mL/min/1.73m2 Critically low >=60 [facility] Comment on above: Performed By: #### B VERNA, HSTROPN ####[facility] [address] [address]Dr. Cuba Weber Glucose [Mass/Vol] 123 mg/dL Critically high 74-106 [facility] Comment on above: Performed By: #### B VERNA, HSTROPN ####[facility] [address] [address]Dr. Sharynshasta Weber Potassium [Moles/Vol] 3.6 mmol/L Normal 3.5-5.1 [facility] Comment on above: Performed By: #### B VERNA, HSTROPN ####[facility] [address] [place], [place] [address]Dr. Cuba Weber Sodium [Moles/Vol] 132 mmol/L Critically low 136-145 [facility] [facility] Comment on above: Performed By: #### B VERNA, HSTROPN ####[facility] [address] [address]Dr. Cuba Weber Urea nitrogen [Mass/Vol] 34.0 mg/dL Critically high 7.0-18.0 [facility] Comment on above: Performed By: #### B VERNA, HSTROPN ####[facility] [address] [address]Dr. Sharynshasta Weber Urea nitrogen/Creatinine [Mass ratio] 11.6 mg/mg Normal [facility] Comment on above: Performed By: #### B VERNA, HSTROPN ####[facility] [address] [address]Dr. Cuba Weber PROTIMEon 07-19-2022 INR Coag (PPP) [Relative time] 1.21 {INR} Normal [facility] Comment on above: Performed By: #### L ACT #### [facility] [address] [place] [address] Dr. Cuba Weber INR GUIDELINES SEE BELOW Normal [facility] Comment on above: Result Comment: GRAZYNA RED INR: 2.0 - 3.0 CONDITIONS NOT LISTED BELOW 2.5 - 3.5 FOR PROSTHETIC HEART VALVE REPLACEMENT 2.5 - 3.5 RECURRENT THROMBOSIS Performed By: #### L ACT #### [facility] [address] [place] [address] Dr. Cuba Weber PT Coag (PPP) [Time] 12.7 s Critically high 9.0-11.6 [facility] Comment on above: Performed By: #### L ACT #### [facility] [address] [place] [address] Dr. Cuba Weber PTTon 07-19-2022 aPTT Coag (Bld) [Time] 27.7 s Normal 22.3-36.2 Th [facility] Comment on above: Performed By: #### L ACT #### [facility] [address] [place] [address] Dr. Cuba Weebr RESPIRATORY PANEL PLUSon Adenovirus Not detected Normal NOT DETECTED [facility] Comment on above: Performed By: #### R SPLUS #### [facility] [address] [place] [address] Dr. Cuba Monahan. Parapertusis Not detected Normal NOT DETECTED The [facility] Comment on above: Performed By: #### R SPLUS #### [facility] [address] [place] [address] Dr. Cuba Gallegos Pertussis Not detected Normal NOT DETECTED [facility] Comment on above: Performed By: #### R SPLUS #### [facility] [address] [place] [address] Dr. Cuba Weber Chlamydia Pneumoniae Not detected Normal NOT DETECTED [facility] Comment on above: Performed By: #### R SPLUS #### [facility] [address] [place] [address] Dr. Cuba Weber Coronavirus 229E Not detected Normal NOT DETECTED [facility] Comment on above: Performed By: #### R SPLUS #### [facility] [address] [place] [address] Dr. Cuba Weber Coronavirus HKU1 Not detected Normal NOT DETECTED [facility] Comment on above: Performed By: #### R SPLUS #### [facility] [address] [place] [address] Dr. Cuba Weber Coronavirus NL63 Not detected Normal NOT DETECTED [facility] Comment on above: Performed By: #### R SPLUS #### [facility] [address] [place] [address] Dr. Cuba Weber Coronavirus OC43 Not detected Normal NOT DETECTED [facility] Comment on above: Performed By: #### R SPLUS #### [facility] [address] [place] [address] Dr. Cuba Weber Influenza A H1 Not detected Normal NOT DETECTED The [facility] Comment on above: Performed By: #### R SPLUS #### [facility] [address] [place] [address] Dr. Cuba Weber Influenza A H1 2009 Not detected Normal NOT DETECTED [facility] Comment on above: Performed By: #### R SPLUS #### [facility] [address] [place] [address] Dr. Cuba Wbeer Influenza A H3 Not detected Normal NOT DETECTED [facility] Comment on above: Performed By: #### R SPLUS #### [facility] [address] [place] [address] Dr. Cuba Weber Influenza B Not detected Normal NOT DETECTED The [facility] Comment on above: Performed By: #### R SPLUS #### [facility] [address] [place] [address] Dr. Cuba Weber Metapneumovirus Not detected Normal NOT DETECTED [facility] Comment on above: Performed By: #### R SPLUS #### [facility] [address] [address] [address] Cuba Weber Mycoplas. Pneumoniae Not detected Normal NOT DETECTED [facility] Comment on above: Performed By: #### R SPLUS #### [facility] [address] [place] [address] Dr. Cuba Weber Parainfluenza 1 Not detected Normal NOT DETECTED [facility] Comment on above: Performed By: #### R SPLUS #### [facility] [address] [place] [address] Dr. Cuba Weber Parainfluenza 2 Not detected Normal NOT DETECTED [facility] Comment on above: Performed By: #### R SPLUS #### [facility] [address] [place] [address] Dr. Cuba Weber Parainfluenza 3 Not detected Normal NOT DETECTED [facility] Comment on above: Performed By: #### R SPLUS #### [facility] [address] [place] [address] Dr. Cuba Weber Parainfluenza 4 Not detected Normal NOT DETECTED [facility] Comment on above: Performed By: #### R SPLUS #### [facility] [address] [place] [address] Dr. Cuba Weber Rhino/Enterovirus Not detected Normal NOT DETECTED [facility] Comment on above: Performed By: #### R SPLUS #### [facility] [address] [place] [address] Dr. Cuba Weber RP2 Header 1 RESPIRATORY PANEL: VIRUSES Normal [facility] Comment on above: Performed By: #### R SPLUS #### [facility] [address] [place] [address] Dr. Cuba Weber RP2 Header 2 RESPIRATORY PANEL: BACTERIA Normal [facility] Comment on above: Performed By: #### R SPLUS #### [facility] [address] [place] [address] Dr. Cuba Weber RSV Not detected Normal NOT DETECTED [facility] Comment on above: Performed By: #### R SPLUS #### [facility] [address] [place], [place] [address] Dr. Cuba Weber SARS-CoV-2 (COVID-19) RNA ROSSANA+probe Ql (Unsp spec) Not detected Normal NOT DETECTED [facility] Comment on above: Performed By: #### R SPLUS #### [facility] [address] [place], [place] [address] Dr. Cuba Weber TROPONIN, HIGH SENSITIVITYon 07-19-2022 HSTROP 42.9 pg/mL Normal 4.0-76.1 [facility] Comment on above: Result Comment: CUT- OFF POINTS HAVE BEEN ESTABLISHED BASED ON THE FOURTH UNIVERSAL DEFINITIONS OF MYOCARDIAL INFARCTION. THE UPPER REFERENCE LIMIT (URL) OF TROPONIN, DEFINED THE 99TH PERCENTILE OF cTnI DISTRIBUTION IN A REFERENCE POPULATION, HAS BEEN CONFIRMED THE DECISION THRESHOLD FOR PR DIAGNOSIS. Performed By: #### B MP, HSTROPN ####[facility] [address] [place], [place] [address]Dr. Cuba Weber XR CHEST 1 Von 07-19-2022 [...] by: MINERVA REN Date: 2022-07-19 12:00 Normal [facility] ECHOCARDIO M/2D COMPLETEon 0 05-10-2022 ECHOCARDIO M/2D COMPLETE Patient: FEDE GUERRA Exam Date: 05/10/2022 : 1955 Gender:M Ordering : YAZMIN CHILEL Admission #: [id number] Family : Order #: [id number] CLICK HERE TO VIEW EXAM ECHOCARDIOGRAM REPORT [...] 3.50 cm Aortic Valve AoV Area (Peak Beau): 2.62 cm2, 2.62 cm2 AoV Area (VTI): [...] Vera M.D. on 05/11/2022 at 08:22 Normal [facility] NM STRESS/REST MULTIon 05-10 NM STRESS/REST MULTI Patient: FEDE GUERRA Exam Date: 05/10/2022 : 1955 Gender:M Ordering : YAZMIN CHILEL Admission #: [id number] Family : Order #: [id number] CLICK HERE TO VIEW EXAM RADIOLOGY REPORT [...] MD on 05/12/2022 at 06:07 Normal [facility] CARDIAC ERIKA ADMITon 023 CK [Catalytic activity/Vol] 88 U/L Normal 39-308 [facility] Comment on above: Performed By: #### L ACT #### [facility] [address] [place] [address] Dr. Cuba Weber CK.MB [Mass/Vol] ng/mL Normal <=3.60 [facility] Comment on above: Performed By: #### L ACT #### [facility] [address] [place] [address] Dr. Cuba Weber HSTROP 5.9 pg/mL Normal 4.0-76.1 [facility] Comment on above: Result Comment: CUT- OFF POINTS HAVE BEEN ESTABLISHED BASED ON THE FOURTH UNIVERSAL DEFINITIONS OF MYOCARDIAL INFARCTION. THE UPPER REFERENCE LIMIT (URL) OF TROPONIN, DEFINED THE 99TH PERCENTILE OF cTnI DISTRIBUTION IN A REFERENCE POPULATION, HAS BEEN CONFIRMED THE DECISION THRESHOLD FOR PR DIAGNOSIS. Performed By: #### L ACT #### [facility] [address] [place] [address] Dr. Cuba Weber MOISÉS 46 ng/mL Normal 16-96 [facility] Comment on above: Performed By: #### L ACT #### [facility] [address] [place] [address] Dr. Cuba Weber CBC AUTO DIFFon 05-01-2022 BASO # 0.0 103/ul Normal 0.0-0.1 [facility] Comment on above: Performed By: #### R SPLUS #### [facility] [address] [address] [address] Cuba Weber Basophils/100 WBC (Bld) 1.1 % Normal 0.2-2.0 [facility] Comment on above: Performed By: #### R SPLUS #### [facility] [address] [place] [address] Dr. Cuba Weber EO # 0.2 103/ul Normal 0.0-0.7 [facility] Comment on above: Performed By: #### R SPLUS #### [facility] [address] [place] [address] Dr. Cuba Weber Eosinophils/100 WBC (Bld) 6.4 % Normal 0.9-7.0 [facility] Comment on above: Performed By: #### R SPLUS #### [facility] [address] [place] [address] Dr. Cuba Weber Erythrocyte distribution width (RBC) [Ratio] 13.3 % Normal 11.0-15.0 [facility] Comment on above: Performed By: #### R SPLUS #### [facility] [address] [place] [address] Dr. Cuba Weber Hematocrit (Bld) [Volume fraction] 43.5 % Normal 42.0-54.0 [facility] Comment on above: Performed By: #### R SPLUS #### [facility] [address] [place] [address] Dr. Cuba Weber Hemoglobin (Bld) [Mass/Vol] 13.5 g/dL Critically low 14.0-18.0 [facility] Comment on above: Performed By: #### R SPLUS #### [facility] [address] [place] [address] Dr. Cuba Weber IG # 0.01 10e3/ul Normal 0.00-0.03 [facility] Comment on above: Performed By: #### R SPLUS #### [facility] [address] [place] [address] Dr. Cuba Weber IG % 0.3 % Normal 0.0-0.5 [facility] Comment on above: Performed By: #### R SPLUS #### [facility] [address] [address] [address] Cuba Weber LYMPH # 1.5 103/ul Normal 1.2-3.8 [facility] Comment on above: Performed By: #### R SPLUS #### [facility] [address] [address] [address] Cuba Weber Lymphocytes/100 WBC (Bld) 40.1 % Normal 20.5-60.0 [facility] Comment on above: Performed By: #### R SPLUS #### [facility] [address] [place] [address] Dr. Cuba Weber MANUAL DIFF REQ NO Normal [facility] Comment on above: Performed By: #### R SPLUS #### [facility] [address] [place] [address] Dr. Cuba Weber MCH (RBC) [Entitic mass] 28.0 pg Normal 25.9-34.0 [facility] Comment on above: Performed By: #### R SPLUS #### [facility] [address] [place] [address] Dr. Cuba Weber MCHC (RBC) [Mass/Vol] 31.0 g/dL Normal 29.9-35.2 [facility] Comment on above: Performed By: #### R SPLUS #### [facility] [address] [place] [address] Dr. Cuba Weber MCV (RBC) [Entitic vol] 90.2 fL Normal 80.0-94.0 [facility] Comment on above: Performed By: #### R SPLUS #### [facility] [address] [place] [address] Dr. Cuba Weber MONO # 0.4 103/ul Normal 0.3-0.8 [facility] Comment on above: Performed By: #### R SPLUS #### [facility] [address] [place] [address] Dr. Cuba Weber Monocytes/100 WBC (Bld) 11.9 % Normal 1.7-12.0 [facility] Comment on above: Performed By: #### R SPLUS #### [facility] [address] [address] [address] uCba Weber NEUT # 1.5 103/ul Normal 1.4-6.5 [facility] Comment on above: Performed By: #### R SPLUS #### [facility] [address] [address] [address] Cuba Weber Neutrophils/100 WBC (Bld) 40.2 % Critically low 43.0-75.0 [facility] Comment on above: Performed By: #### R SPLUS #### [facility] [address] [address] [address] Cuba Weber Platelet mean volume (Bld) [Entitic vol] 9.5 fL Normal 9.5-13.5 [facility] Comment on above: Performed By: #### R SPLUS #### [facility] [address] [place] [address] Dr. Cuba Weber PLT 239 103/ul Normal 150-450 [facility] Comment on above: Performed By: #### R SPLUS #### [facility] [address] [place] [address] Dr. Cuba Weber RBC 4.82 106/ul Normal 4.70-6.10 [facility] Comment on above: Performed By: #### R SPLUS #### [facility] [address] [place] [address] Dr. Cuba Weber WBC 3.6 103/ul Critically low 4.0-11.0 [facility] Comment on above: Performed By: #### R SPLUS #### [facility] [address] [place] [address] Dr. Cuba Weber PROF 14(COMP METB)on 023 Albumin [Mass/Vol] 3.7 g/dL Normal 3.4-5.0 [facility] Comment on above: Performed By: #### L ACT #### [facility] [address] [place] [address] Dr. Cuba Weber Albumin/Globulin [Mass ratio] 0.9 {ratio} Normal [facility] Comment on above: Performed By: #### L ACT #### [facility] [address] [place] [address] Dr. Cuba Weber ALP [Catalytic activity/Vol] 91 U/L Normal 46-116 [facility] Comment on above: Performed By: #### L ACT #### [facility] [address] [address] [address] Cuba Weber ALT [Catalytic activity/Vol] 20 U/L Normal 16-63 [facility] Comment on above: Performed By: #### L ACT #### [facility] [address] [place] [address] Dr. Cuba Weber Anion gap [Moles/Vol] 11.3 mmol/L Normal [facility] Comment on above: Performed By: #### L ACT #### [facility] [address] [place] [address] Dr. Cuba Weber AST [Catalytic activity/Vol] 22 U/L Normal 15-37 [facility] Comment on above: Performed By: #### L ACT #### [facility] [address] [place] [address] Dr. Cuba Weber Bilirubin [Mass/Vol] 0.6 mg/dL Normal 0.2-1.0 [facility] Comment on above: Performed By: #### L ACT #### [facility] [address] [place] [address] Dr. Cuba Weber Calcium [Mass/Vol] 9.7 mg/dL Normal 8.5-10.1 [facility] Comment on above: Performed By: #### L ACT #### [facility] [address] [place] [address] Dr. Cuba Weber Chloride [Moles/Vol] 107 mmol/L Normal 98-107 [facility] Comment on above: Performed By: #### L ACT #### [facility] [address] [place] [address] Dr. Cuba Weber CO2 [Moles/Vol] 29.0 mmol/L Normal 21.0-32.0 [facility] Comment on above: Performed By: #### L ACT #### [facility] [address] [place] [address] Dr. Cuba Weber Creatinine [Mass/Vol] 0.79 mg/dL Normal 0.70-1.30 [facility] Comment on above: Performed By: #### L ACT #### [facility] [address] [address] [address] Cuba Weber EGFR-AF LAO >60 Normal >=60 [facility] Comment on above: Performed By: #### L ACT #### [facility] [address] [address] [address] Cuba Weber EGFR-NON AF LAO >60 Normal >=60 [facility] Comment on above: Performed By: #### L ACT #### [facility] [address] [address] [address] Cuba Weber Globulin (S) [Mass/Vol] 4.0 g/dL Normal [facility] Comment on above: Performed By: #### L ACT #### [facility] [address] [place] [address] Dr. Cuba Weber Glucose [Mass/Vol] 97 mg/dL Normal 74-106 [facility] Comment on above: Performed By: #### L ACT #### [facility] [address] [address] [address] Cuba Weber Potassium [Moles/Vol] 4.3 mmol/L Normal 3.5-5.1 [facility] Comment on above: Performed By: #### L ACT #### [facility] [address] [place] [address] Dr. Cuba Weber Protein [Mass/Vol] 7.7 g/dL Normal 6.4-8.2 [facility] Comment on above: Performed By: #### L ACT #### [facility] [address] [address] [address] Cuba Weber Sodium [Moles/Vol] 143 mmol/L Normal 136-145 [facility] Comment on above: Performed By: #### L ACT #### [facility] [address] [address] [address] Cuba Weber Urea nitrogen [Mass/Vol] 11.0 mg/dL Normal 7.0-18.0 [facility] Comment on above: Performed By: #### L ACT #### [facility] [address] [place], [place] [address] Dr. Cuba Weber Urea nitrogen/Creatinine [Mass ratio] 13.9 mg/mg Normal [facility] Comment on above: Performed By: #### L ACT #### [facility] [address] [place], [place] [address] Dr[address] Cuba Weber TROPONIN, HIGH SENSITIVITYon 05-01-2022 HSTROP <4.0 Normal 4.0-76.1 [facility] Comment on above: Result Comment: CUT- OFF POINTS HAVE BEEN ESTABLISHED BASED ON THE FOURTH UNIVERSAL DEFINITIONS OF MYOCARDIAL INFARCTION. THE UPPER REFERENCE LIMIT (URL) OF TROPONIN, DEFINED THE 99TH PERCENTILE OF cTnI DISTRIBUTION IN A REFERENCE POPULATION, HAS BEEN CONFIRMED THE DECISION THRESHOLD FOR PR DIAGNOSIS. Performed By: #### H STROPN ####[facility] [address] [place], [place] [address]KjDr. Cuba Weber XR CHEST 1 Von 05-01-2022 [...] by: AUSTIN WHALEY Date: 2022-05-01 09:55 Normal [facility] Telemedicineon 04-23-2022 Telemedicine [id number] Lately,Fede Drew Sr. 1955 M Date Provider Department Center 04/23/2022 3848-YAZMIN CHILEL [facility] No family history on file Level of Service:03087 [place] OFFICE/OUTPATIENT NEW MODERATE MDM 45-59 MINUTES Normal [facility] CBC AUTO DIFFon 04-09-2022 BASO # 0.0 103/ul Normal 0.0-0.1 [facility] Comment on above: Performed By: #### C BC ####[facility] [address] [address]Dr. Cuba Weber Basophils/100 WBC (Bld) 0.7 % Normal 0.2-2.0 [facility] Comment on above: Performed By: #### C BC ####[facility] [address] [place], [place] [address]Dr. Cuba Weber EO # 0.3 103/ul Normal 0.0-0.7 [facility] Comment on above: Performed By: #### C BC ####[facility] [address] [place], [place] [address]Dr. Cuba Weber Eosinophils/100 WBC (Bld) 6.8 % Normal 0.9-7.0 [facility] Comment on above: Performed By: #### C BC ####[facility] [address] [place], [place] [address]Dr. Cuba Weber Erythrocyte distribution width (RBC) [Ratio] 13.2 % Normal 11.0-15.0 [facility] Comment on above: Performed By: #### C BC ####[facility] [address] [place], [place] [address]Dr. Cuba Weber Hematocrit (Bld) [Volume fraction] 42.5 % Normal 42.0-54.0 [facility] Comment on above: Performed By: #### C BC ####[facility] [address] [place], [place] [address]Dr. Cuba Weber Hemoglobin (Bld) [Mass/Vol] 13.7 g/dL Critically low 14.0-18.0 [facility] Comment on above: Performed By: #### C BC ####[facility] [address] [place], [place] [address]Dr. Cuba Weber IG # 0.01 10e3/ul Normal 0.00-0.03 [facility] Comment on above: Performed By: #### C BC ####[facility] [address] [place], [place] [address]DrGlory Weber IG % 0.2 % Normal 0.0-0.5 [facility] Comment on above: Performed By: #### C BC ####[facility] [address] [place] [address]DrGlory Weber LYMPH # 1.5 103/ul Normal 1.2-3.8 [facility] Comment on above: Performed By: #### C BC ####[facility] [address] [place] [address]DrGlory Weber Lymphocytes/100 WBC (Bld) 35.8 % Normal 20.5-60.0 [facility] Comment on above: Performed By: #### C BC ####[facility] [address] [place], [place] [address]DrGlory Weber MANUAL DIFF REQ NO Normal [facility] Comment on above: Performed By: #### C BC ####[facility] [address] [place], [place] [address]DrGlory Weber MCH (RBC) [Entitic mass] 27.5 pg Normal 25.9-34.0 [facility] Comment on above: Performed By: #### C BC ####[facility] [address] [place], [place] [address]DrGlory Weber MCHC (RBC) [Mass/Vol] 32.2 g/dL Normal 29.9-35.2 [facility] Comment on above: Performed By: #### C BC ####[facility] [address] [place], [place] [address]DrGlory Weber MCV (RBC) [Entitic vol] 85.3 fL Normal 80.0-94.0 [facility] Comment on above: Performed By: #### C BC ####[facility] [address] [place], [place] [address]DrGlory Weber MONO # 0.5 103/ul Normal 0.3-0.8 [facility] Comment on above: Performed By: #### C BC ####[facility] [address] [place], [place] [address]DrGlory Weber Monocytes/100 WBC (Bld) 11.2 % Normal 1.7-12.0 [facility] Comment on above: Performed By: #### C BC ####[facility] [address] [place] [address]Dr. [place] Weber NEUT # 1.9 103/ul Normal 1.4-6.5 [facility] Comment on above: Performed By: #### C BC ####[facility] [address] [place] [address]Dr. Cuba Weber Neutrophils/100 WBC (Bld) 45.3 % Normal 43.0-75.0 [facility] Comment on above: Performed By: #### C BC ####[facility] [address] [place] [address]Dr. Cuba Weber Platelet mean volume (Bld) [Entitic vol] 10.2 fL Normal 9.5-13.5 [facility] Comment on above: Performed By: #### C BC ####[facility] [address] [place] [address]Dr. Cuba Weber PLT 232 103/ul Normal 150-450 [facility] Comment on above: Performed By: #### C BC ####[facility] [address] [place], [place] [address]Dr. Cuba Weber RBC 4.98 106/ul Normal 4.70-6.10 [facility] Comment on above: Performed By: #### C BC ####[facility] [address] [place] [address]Dr. Cuba Weber WBC 4.3 103/ul Normal 4.0-11.0 [facility] [facility] Comment on above: Performed By: #### C BC ####[facility] [address] [place], [place] [address]Dr. Cuba Weber Covid-19 PCR (CVDTB)on 03-28 SARS-CoV-2 (COVID-19) RNA ROSSANA+probe Ql (Unsp spec) Not detected Normal NOT DETECTED [facility] Comment on above: Result Comment: This test is not yet approved or cleared by the [place] FDA. When there are no FDA-approved or cleared tests available, and other criteria are met, FDA can make tests available under an emergency access mechanism called an Emergency Use Authorization (EUA). The EUA for this test is supported by the Manager Desktop of Health and Human Service's (HHS's) declaration [...] SARS-CoV-2. Performed By: #### R SPLUS #### [facility] [address] [address] [address] Cuba Weber PROF CHEM 8 (BAS METB)on Anion gap [Moles/Vol] 14.1 mmol/L Normal [facility] Comment on above: Performed By: #### B MP ####[facility] [address] [address]Dr. Cuba Weber Calcium [Mass/Vol] 9.3 mg/dL Normal 8.5-10.1 [facility] Comment on above: Performed By: #### B MP ####[facility] [address] [id number]. Cuba Weber Chloride [Moles/Vol] 106 mmol/L Normal 98-107 [facility] Comment on above: Performed By: #### B MP ####[facility] [address] [place], [place] [address]RkGlory Weber CO2 [Moles/Vol] 26.1 mmol/L Normal 21.0-32.0 [facility] Comment on above: Performed By: #### B MP ####[facility] [address] [id number] Weber Creatinine [Mass/Vol] 0.93 mg/dL Normal 0.70-1.30 [facility] Comment on above: Performed By: #### B MP ####[facility] [address] [address]Dr. Cuba Weber EGFR-AF LAO >60 Normal >=60 [facility] Comment on above: Performed By: #### B MP ####[facility] [address] [address]Dr. Cuba Gus EGFR-NON AF LAO >60 Normal >=60 [facility] Comment on above: Performed By: #### B MP ####[facility] [address] [address]Dr. Sharynshasta Weber Glucose [Mass/Vol] 111 mg/dL Critically high 74-106 [facility] Comment on above: Performed By: #### B MP ####[facility] [address] [address]Dr. Cuba Weber Potassium [Moles/Vol] 4.0 mmol/L Normal 3.5-5.1 [facility] Comment on above: Performed By: #### B MP ####[facility] [address] [place], [place] [address]Dr. Cuba Weber Sodium [Moles/Vol] 142 mmol/L Normal 136-145 [facility] Comment on above: Performed By: #### B MP ####[facility] [address] [address]Dr. Cuba Weber Urea nitrogen [Mass/Vol] 9.0 mg/dL Normal 7.0-18.0 [facility] Comment on above: Performed By: #### B MP ####[facility] [address] [place], [place] [address]Dr. Cuba Weber Urea nitrogen/Creatinine [Mass ratio] 9.6 mg/mg Normal [facility] Comment on above: Performed By: #### B MP ####[facility] [address] [place], [place] [address]Dr. Cuba Weber PROTIMEon 04-09-2022 INR Coag (PPP) [Relative time] 0.99 {INR} Normal [facility] Comment on above: Performed By: #### P TT, PT #### [facility] [address] [place], [place] [address] Dr. Cuba Weber INR GUIDELINES SEE BELOW Normal [facility] Comment on above: Result Comment: GRAZYNA RED INR: 2.0 - 3.0 CONDITIONS NOT LISTED BELOW 2.5 - 3.5 FOR PROSTHETIC HEART VALVE REPLACEMENT 2.5 - 3.5 RECURRENT THROMBOSIS Performed By: #### P TT, PT #### [facility] [id number] Cuba Weber PT Coag (PPP) [Time] 10.5 s Normal 9.0-11.6 [facility] Comment on above: Performed By: #### P TT, PT #### [facility] [address] [address] [address] Cuba Weber PTTon 04-09-2022 aPTT Coag (Bld) [Time] 29.2 s Normal 22.3-36.2 [facility] Comment on above: Performed By: #### P TT, PT #### [facility] [address] [address] [address] Cuba Weber XR KUB 1 VIEWon [...] by: MINERVA REN Date: 2022-04-09 16:33 Normal [facility] Creatinine and Glomerular fi ltration rate.predicted panel (S/P/Bld)Ordered By: Robbi Quezada on 02-22-2022 Creatinine [Mass/Vol] 0.83 mg/dL 0.64-1.27 [facility] Estimated glomerular filtrat ion rate (GFR) non- AmericanOrdered By: Robbi Quezada on 02-22-2022 GFR/1.73 sq M.predicted among non-blacks MDRD (S/P/Bld) [Vol rate/Area] > 60 mL/Min [facility] No Panel InformationOrdered By: Robbi Quezada on 02-22-2022 Estimated GFR () > 60 mL/Min [facility] Comment on above: GFR estimated refere nce range: According to KDOQI guidelines, <60 ml/min/1.73m2 is sufficient to diagnose a patient with chronic kidney disease. Pharmacy Creatinine Clearance (Chem N/A [facility] Serum or plasma urea nitroge n measurement (mass/volume)Ordered By: Robbi Quezada on 02-22-2022 Urea nitrogen [Mass/Vol] 12 mg/dL 12-18 [facility] HEMOGRAM AND PLATELon 2021 Hematocrit (Bld) [Volume fraction] 44.5 % Normal 42.0-54.0 [facility] Comment on above: Performed By: #### H H ####[facility] [address] [place], [place] [address]Dr. Cuba Weber Hemoglobin (Bld) [Mass/Vol] 14.8 g/dL Normal 14.0-18.0 [facility] Comment on above: Performed By: #### H H ####[facility] [address] [place], [place] [address]Dr. Cuba Weber MCH (RBC) [Entitic mass] 29.0 pg Normal 25.9-34.0 [facility] Comment on above: Performed By: #### H H ####[facility] [address] [address]Dr. Cuba Weber MCHC (RBC) [Mass/Vol] 33.3 g/dL Normal 29.9-35.2 [facility] Comment on above: Performed By: #### H H ####[facility] [address] [place], [place] [address]DrGlory Weber MCV (RBC) [Entitic vol] 87.3 fL Normal 80.0-94.0 [facility] Comment on above: Performed By: #### H H ####[facility] [address] [place], [place] [address]Jv. Cuba Weber PLT 253 103/ul Normal 150-450 [facility] Comment on above: Performed By: #### H H ####[facility] [address] [place], [place] [address]Ke. Cuba Weber RBC 5.10 106/ul Normal 4.70-6.10 [facility] Comment on above: Performed By: #### H H ####[facility] [address] [place], [place] [address]Nd. Cuba Weber WBC 4.0 103/ul Normal 4.0-11.0 [facility] Comment on above: Performed By: #### H H ####[facility] [address] [place], [place] [address]Yv. Cuba Weber LIPID PROFILEon 02-01-2022 CHOL-HDL RATIO NORM SEE BELOW Normal [facility] Comment on above: Result Comment: 3.3 - 4.4 LOW RISK 4.4 - 7.1 AVERAGE RISK 7.1 - 11.0 MODERATE RISK >11.0 HIGH RISK Performed By: #### L IPID, CMP #### [facility] [address] [address] [address] Cuba Weber Cholesterol [Mass/Vol] 140 mg/dL Normal <=200 [address] [facility] Comment on above: Performed By: #### L IPID, CMP #### [facility] [address] [address] [address] Cbua Weber Cholesterol in HDL [Mass/Vol] 38 mg/dL Critically low 40-60 [facility] Comment on above: Performed By: #### L IPID, CMP #### [facility] [address] [address] [address] Cuba Weber Cholesterol in LDL [Mass/Vol] 92.4 mg/dL Normal [facility] Comment on above: Performed By: #### L IPID, CMP #### [facility] [address] [address] [address] Cuba Weber Cholesterol.total/Eboni sterol in HDL [Mass ratio] 3.7 {ratio} Normal [facility] Comment on above: Performed By: #### L IPID, CMP #### [facility] [address] [address] [address] Cuba Weber HDL NORMAL > or = 60 mg/dl - LOW CARDIOVASCULAR RISK <40 mg/dl - HIGH CARDIOVASCULAR RISK Normal [facility] Comment on above: Performed By: #### L IPID, CMP #### [facility] [address] [address] [address] Cuba Weber LDL CALC NORMAL SEE BELOW Normal [facility] Comment on above: Result Comment: <100 mg/dl OPTIMAL 100 - 129 mg/dl NEAR OR ABOVE OPTIMAL 130 - 159 mg/dl BORDERLINE HIGH 160 - 189 mg/dl HIGH >190 mg/dl VERY HIGH Performed By: #### L IPID, CMP #### [facility] [address] [address] [address] Cuba Weber Triglyceride [Mass/Vol] 48 mg/dL Normal <=150 T [facility] Comment on above: Performed By: #### L IPID, CMP #### [facility] [address] [address] [address] Cuba Weber VLDL CALC 9.6 mg/dL Normal [facility] Comment on above: Performed By: #### L IPID, CMP #### [facility] [address] [address] [address] Cuba Weber PROF 14(COMP METB)on 022 Albumin [Mass/Vol] 3.7 g/dL Normal 3.4-5.0 [facility] Comment on above: Performed By: #### L IPID, CMP #### [facility] [address] [address] [address] Cuba Weber Albumin/Globulin [Mass ratio] 0.9 {ratio} Normal [facility] Comment on above: Performed By: #### L IPID, CMP #### [facility] [address] [address] [address] Cuba Weber ALP [Catalytic activity/Vol] 92 U/L Normal 46-116 [facility] Comment on above: Performed By: #### L IPID, CMP #### [facility] [address] [address] [address] Cuba Weber ALT [Catalytic activity/Vol] 10 U/L Critically low 16-63 [facility] Comment on above: Performed By: #### L IPID, CMP #### [facility] [address] [address] [address] Cuba Weber Anion gap [Moles/Vol] 7.4 mmol/L Normal [facility] Comment on above: Performed By: #### L IPID, CMP #### [facility] [address] [address] [address] Cuba Weber AST [Catalytic activity/Vol] 12 U/L Critically low 15-37 [facility] Comment on above: Performed By: #### L IPID, CMP #### [facility] [address] [address] [address] Cuba Weber Bilirubin [Mass/Vol] 0.5 mg/dL Normal 0.2-1.0 [facility] Comment on above: Performed By: #### L IPID, CMP #### [facility] [address] [address] [address] Cuba Weber Calcium [Mass/Vol] 9.3 mg/dL Normal 8.5-10.1 [facility] Comment on above: Performed By: #### L IPID, CMP #### [facility] [address] [address] [address] Cuba eWber Chloride [Moles/Vol] 105 mmol/L Normal 98-107 [facility] Comment on above: Performed By: #### L IPID, CMP #### [facility] [address] [address] [address] Cuba Weber CO2 [Moles/Vol] 27.8 mmol/L Normal 21.0-32.0 [facility] Comment on above: Performed By: #### L IPID, CMP #### [facility] [address] [address] [address] Cuba Weber Creatinine [Mass/Vol] 0.83 mg/dL Normal 0.70-1.30 [facility] Comment on above: Performed By: #### L IPID, CMP #### [facility] [address] [address] [address] Cuba Weber EGFR-AF LAO >60 Normal >=60 [facility] Comment on above: Performed By: #### L IPID, CMP #### [facility] [address] [address] [address] Cuba Weber EGFR-NON AF LAO >60 Normal >=60 [facility] Comment on above: Performed By: #### L IPID, CMP #### [facility] [address] [address] [address] Cuba Weber Globulin (S) [Mass/Vol] 4.2 g/dL Normal [facility] Comment on above: Performed By: #### L IPID, CMP #### [facility] [address] [address] [address] Cuba Weber Glucose [Mass/Vol] 80 mg/dL Normal 74-106 [facility] Comment on above: Performed By: #### L IPID, CMP #### [facility] [address] [address] [address] Cuba Weber Potassium [Moles/Vol] 4.2 mmol/L Normal 3.5-5.1 [facility] Comment on above: Performed By: #### L IPID, CMP #### [facility] [address] [address] [address] Cuba Weber Protein [Mass/Vol] 7.9 g/dL Normal 6.4-8.2 [facility] Comment on above: Performed By: #### L IPID, CMP #### [facility] [address] [address] [address] Cuba Weber Sodium [Moles/Vol] 136 mmol/L Normal 136-145 [facility] Comment on above: Performed By: #### L IPID, CMP #### [facility] [address] [address] [address] Cuba Weber Urea nitrogen [Mass/Vol] 15.0 mg/dL Normal 7.0-18.0 [facility] Comment on above: Performed By: #### L IPID, CMP #### [facility] [address] [place], [place] [address] Dr. Cuba Weber Urea nitrogen/Creatinine [Mass ratio] 18.1 mg/mg Normal [facility] Comment on above: Performed By: #### L IPID, CMP #### [facility] [id number] Cuba Weber CBC and Differentialon 10-12 Abs Baso 0.04 k/uL Normal <0.11 [facility] Abs Ouray 0.81 k/uL Normal <0.87 [facility] Abs Neut 3.32 k/uL Normal 1.45-7.50 [facility] Absolute nRBC <0.01 Normal <0.01 [facility] al Basophils/100 WBC (Bld) 0.7 % Normal [facility] DTYPE Auto Diff Normal [facility] Eosinophils (Bld) [#/Vol] 0.13 10*3/uL Normal <0.46 [facility] Eosinophils/100 WBC (Bld) 2.4 % Normal [facility] Erythrocyte distribution width (RBC) [Ratio] 12.4 % Normal 11.5-15.0 [facility] Hematocrit (Bld) [Volume fraction] 36.7 % Low 39.0-51.0 [facility] Hemoglobin (Bld) [Mass/Vol] 11.9 g/dL Low 13.0-17.0 [facility] Lymphocytes (Bld) [#/Vol] 1.19 10*3/uL Normal 1.00-4.00 [facility] Lymphocytes/100 WBC (Bld) 21.7 % Normal [facility] MCH (RBC) [Entitic mass] 29.0 pG Normal 26.0-34.0 [facility] MCHC (RBC) [Mass/Vol] 32.4 g/dL Normal 30.5-36.0 [facility] MCV (RBC) [Entitic vol] 89.3 fL Normal 80.0-100.0 [facility] Monocytes/100 WBC (Bld) 14.8 % Normal [facility] Neutrophils/100 WBC (Bld) 60.4 % Normal [facility] NRBCs 0.0 /100 WBC Normal 0 [facility] l Platelet mean volume (Bld) [Entitic vol] 9.7 fL Normal 9.0-12.7 [facility] l Platelets (Bld) [#/Vol] 388 10*3/uL Normal 150-400 [facility] RBC (Bld) [#/Vol] 4.11 10*6/uL Low 4.20-6.00 [facility] WBC (Bld) [#/Vol] 5.49 10*3/uL Normal 3.70-11.[address] [facility] [address] CHEST W IVCON PEon 2019 CT CHEST W IVCON PE * * *Final Report* * * DATE OF EXAM: Oct 13 2019 12:23PM [facility] 0540 - CT CHEST W IVCON [...] No abnormality in the imaged upper abdomen. Supervisor Engine Repair (topogram) images: Unremarkable. IMPRESSION: No CT evidence of pulmonary embolism. Mild atelectasis Embossing Toolsetter: ENEIDA Transcribe Date/Time: Oct 13 2019 12:38P Dictated by : ERIKA DAVIS MD This examination was interpreted and the report reviewed and electronically signed by: ERIKA DAVIS MD on Oct 13 2019 12:43PM EST [id number] Normal [facility] Comp Metabolic Panelon 10-12 Albumin [Mass/Vol] 3.9 g/dL Normal 3.9-4.9 [facility] ALP [Catalytic activity/Vol] 62 U/L Normal 38-113 [facility] ALT [Catalytic activity/Vol] 14 U/L Normal 10-54 [facility] Anion gap [Moles/Vol] 10 mmol/L Normal 9-18 [facility] AST [Catalytic activity/Vol] 14 U/L Normal 14-40 [facility] Bilirubin [Mass/Vol] mg/dL Low 0.2-1.3 [facility] Calcium [Mass/Vol] 9.9 mg/dL Normal 8.5-10.2 [facility] Chloride [Moles/Vol] 101 mmol/L Normal 97-105 [facility] CO2 [Moles/Vol] 26 mmol/L Normal 22-30 [facility] ital Creatinine [Mass/Vol] 0.85 mg/dL Normal 0.73-1.22 [facility] eGFR- Amer. >60 Normal [facility] GFR/1.73 sq M predicted among non-blacks MDRD (S/P/Bld) [Vol rate/Area] mL/min/{1.73_m2} Normal [facility] Comment on above: Result Comment: eGFR [...] GFR. Glucose [Mass/Vol] 120 mg/dL High 74-99 [facility] Comment on above: Result Comment: The [place] Diabetes Association (ADA) provides guidance for cutoff [...] Standards of Medical Care in Diabetes 2016, [place] [employer] Association. Diabetes Care. 2016.39(Suppl 1). Potassium [Moles/Vol] 4.2 mmol/L Normal 3.7-5.1 [facility] Protein [Mass/Vol] 6.9 g/dL Normal 6.3-8.0 [facility] Sodium [Moles/Vol] 137 mmol/L Normal 136-144 [facility] Urea nitrogen [Mass/Vol] 14 mg/dL Normal 9-24 [facility] ED NOTEon 10-13-2019 ED NOTE HNO ID: [id number] Author: Elzbieta (Rn) HANY Aylaa Service: Nursing Author Type: Registered Nurse Type: ED Notes Filed: 10/13/2019 2:01 PM Note Text: Pt transported back to [facility] via [place] [facility] in stable condition, but AMA. Pt states that he understands that he is leaving AMA and accepts the implications of doing so. Report called to charge nurse at [facility]. Report also given to [place] ambulance personal. [facility] ED NOTE HNO ID: [id number] Author: Kaykay Rivero RN Service: ? Author Type: Registered Nurse Type: ED Notes Filed: 10/13/2019 10:39 AM Note Text: Dr. Pérez at bedside to examine pt. [facility] ED NOTE HNO ID: [id number] Author: Kaykay Rivero RN Service: ? Author Type: Registered Nurse Type: ED Notes Filed: 10/13/2019 10:10 AM Note Text: Portable CXR being done Normal [facility] ED NOTE HNO ID: [id number] Author: Kaykay Rivero RN Service: ? Author [...] bed with siderails up x 2. Normal [facility] ED NOTE HNO ID: [id number] Author: Kaykay Rivero RN Service: ? 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 No pertinent surgical history. [...] CT evidence of pulmonary embolism. Mild atelectasis Embossing Toolsetter: ENEIDA Transcribe Date/Time: Oct 13 2019 12:38P [...] atelectasis although resolving infiltrate is also possible. Embossing Toolsetter: ENEIDA Transcribe Date/Time: Oct 13 2019 10:30A [...] of the patient and have reviewed the PA/STAFF APPRAISER note. My locke findings include: History is [...] 2:54 PM Shashi Pérez 10/13/19 1458 Normal [facility] Magnesium 10-13-2019 Magnesium [Mass/Vol] 1.7 mg/dL Normal 1.7-2.3 [facility] NT Pro BNPon 10-13-2019 PRO B Natr Peptide 52 pg/mL Normal <125 [facility] PROGRESSon 10-13-2019 PROGRESS HNO ID: [id number] Author: NBA Bose (Ct) Service: Radiology Author Type: Rope Coiling Machine Operator Type: Progress Notes Filed: 10/13/2019 12:27 PM [...] 2019 TIME: 12:26 PM PAGER/CONTACT #: Normal [facility] PROGRESS HNO ID: [id number] Author: NBA Bose (Ct) Service: Radiology Author Type: Rope Coiling Machine Operator Type: Progress Notes Filed: 10/13/2019 12:26 PM [...] Bose October 13, 2019 12:26 PM Normal [facility] PROGRESS HNO ID: [id number] Author: Pat ThomasRtJoel Mijares Service: Radiology Author Type: Rope Coiling Machine Operator Type: Progress Notes Filed: 10/13/2019 10:19 AM [...] COLLINS(R) October 13, 2019 10:18 AM Normal [facility] Troponin Ton 10-13-2019 Troponin T.cardiac [Mass/Vol] ug/L Normal 0.000-0.029 [facility] XR CHEST 1V FRONTAL PORTon 0 [...] atelectasis although resolving infiltrate is also possible. Embossing Toolsetter: ENEIDA Transcribe Date/Time: Oct 13 2019 10:30A Dictated by : MILO SORTO MD This examination was interpreted and the report reviewed and electronically signed by: MILO SORTO MD on Oct 13 2019 10:31AM EST [id number] CN [facility] EKG 12 Leadon 10-09-2019 Atrial Rate 57 BPM [facility] [place], [employer] P [place] 76 degrees [facility] [place] [employer] P-R Interval 170 ms [facility] [place], [place] Q-T Interval 400 ms [facility] [place], [employer] QRS Duration 92 ms [facility] [employer] [place], [place] QTc Calculation (Bazett) 389 ms [facility] [place], [employer] R [place] 51 degrees [facility], [place] T [place] 45 degrees [facility] [place], [place] Ventricular Rate 57 BPM [facility] HospitalGingersoft [facility] [place], [place] Sinus bradycardia with sinus arrhythmia Septal infarct , age undetermined Abnormal ECG No previous ECGs available [facility] [employer] [facility] [employer] [place] Samm, Mhpn Incoming Ekg Results From [place] - 10/09/2019 12:35 PM EDT Sinus bradycardia with sinus arrhythmia Septal infarct , age undetermined Abnormal ECG No previous ECGs available [facility] [place], [employer] POC Glucose Fingerstickon Glucose [Mass/Vol] 115 mg/dL High 75 - 110 mg/dL [facility] [place], [place] Interpretation and review of laboratory results Abnormal [facility] [facility] [employer] [place] Glucose [Mass/Vol] 132 mg/dL High 75 - 110 mg/dL [facility] [employer] [place], [place] Interpretation and review of laboratory results Abnormal [facility] [place], [place] Glucose [Mass/Vol] 120 mg/dL High 75 - 110 mg/dL [facility] [place], [place] Interpretation and review of laboratory results Abnormal [place], [place] BASIC METABOLIC PANELon Anion gap [Moles/Vol] 10 mmol/L 9 - 17 mmol/L [place] Bun/Cre Ratio NOT REPORTED [place], [place] Calcium [Mass/Vol] 8.4 mg/dL Low 8.6 - 10. 4 mg/dL [place] Chloride [Moles/Vol] 103 mmol/L 98 - 10 7 mmol/L [place] CO2 [Moles/Vol] 28 mmol/L 20 - 31 mmol/L [place] Creatinine [Mass/Vol] 0.67 mg/dL Low 0.7 - 1.2 mg/dL [place] GFR >60 >60 mL/min [place], [place] GFR Non- >60 >60 mL/min [place] GFR/1.73 sq M predicted among non-blacks MDRD (S/P/Bld) [Vol rate/Area] [place] Comment on above: Average GFR for 60-6 9 years old: 85 mL/min/1.73sq m Chronic Kidney Disease: <60 mL/min/1.73sq m Kidney failure: <15 mL/min/1.73sq m eGFR calculated using average adult body mass. Additional eGFR calculator available at: http://www.[employer]-Center/multiple_crcl_2012.htm GFR/1.73 sq M predicted among non-blacks MDRD (S/P/Bld) [Vol rate/Area] NOT REPORTED [place] Glucose [Mass/Vol] 121 mg/dL High 70 - 99 mg/dL [place] Interpretation and review of laboratory results Abnormal [place] Potassium [Moles/Vol] 4.1 mmol/L 3.7 - 5.3 mmol/L [place] Sodium [Moles/Vol] 141 mmol/L 135 - 144 mmol/L [place] Urea nitrogen [Mass/Vol] 10 mg/dL 8 - 23 mg/dL [place] Basic Metabolic Profon 09-27 (cont.) Normal [facility] Comment on above: Result Comment: Aver age GFR for 60-69 years old: 85 mL/min/1.73sq m Chronic Kidney Disease: <60 mL/min/1.73sq m Kidney failure: <15 mL/min/1.73sq m eGFR calculated using average adult body mass. Additional eGFR calculator available at: http://www.[employer]/multiple_crcl_2012.htm Performed By: #### T YS #### [address] [address] Liquor Clerk: Tre Ferrell MD Anion gap [Moles/Vol] 10 mmol/L Normal 9-17 [facility] Comment on above: Performed By: #### T YS #### [address] [address] Liquor Clerk: Tre Ferrell MD Calcium [Mass/Vol] 8.4 mg/dL Low 8.6-10.4 [facility] Comment on above: Performed By: #### T YS #### [address] [address] Liquor Clerk: Tre Ferrell MD Chloride [Moles/Vol] 103 mmol/L Normal 98-107 [facility] Comment on above: Performed By: #### T YS #### [facility] [employer] [address] [place] [address] Liquor Clerk: Tre Ferrell MD CO2 [Moles/Vol] 28 mmol/L Normal 20-31 [facility] Comment on above: Performed By: #### T YS #### [facility] [employer] [address] [place] [address] Liquor Clerk: Tre Ferrell MD Creatinine [Mass/Vol] 0.67 mg/dL Low 0.70-1.20 [facility] Comment on above: Performed By: #### T YS #### [address] [address] Liquor Clerk: Tre Ferrell MD GFR, Amer >60 Normal >60 [facility] Comment on above: Performed By: #### T YS #### [address] [address] Liquor Clerk: Tre Ferrell MD GFR,non Amer >60 Normal >60 [facility] Comment on above: Performed By: #### T YS #### [address] [address] Liquor Clerk: Tre Ferrell MD Glucose [Mass/Vol] 121 mg/dL High 70-99 [facility] Comment on above: Performed By: #### T YS #### [address] [address] Liquor Clerk: Tre Ferrell MD Potassium [Moles/Vol] 4.1 mmol/L Normal 3.7-5.3 [facility] Comment on above: Performed By: #### T YS #### [address] [address] Liquor Clerk: Tre Ferrell MD Sodium [Moles/Vol] 141 mmol/L Normal 135-144 [facility] Comment on above: Performed By: #### T YS #### [address] [address] Liquor Clerk: Tre Ferrell MD Urea nitrogen [Mass/Vol] 10 mg/dL Normal 8-23 [facility] Comment on above: Performed By: #### T YS #### [address] [address] Liquor Clerk: Tre Ferrell MD BUN/CRE Ratio NOT REPORTED Normal 9-20 [facility] Comment on above: Performed By: #### T YS #### [address] [address] Liquor Clerk: Tre Ferrell MD Staging: NOT REPORTED Normal [facility] Comment on above: Performed By: #### T YS #### [address] [address] Liquor Clerk: Tre Ferrell MD CBCon 09-28-2019 Erythrocyte distribution width (RBC) [Ratio] 12.7 % Normal 11.8-14.4 [facility] Comment on above: Performed By: #### T YS #### [address] [address] Liquor Clerk: Tre Ferrell MD Hematocrit (Bld) [Volume fraction] 32.0 % Low 40.7-50.3 [facility] Comment on above: Performed By: #### T YS #### [address] [address] Liquor Clerk: Tre Ferrell MD Hemoglobin (Bld) [Mass/Vol] 10.2 g/dL Low 13.0-17.0 [facility] Comment on above: Performed By: #### T YS #### [address] [address] Liquor Clerk: Tre Ferrell MD MCH (RBC) [Entitic mass] 29.7 pg Normal 25.2-33.5 [facility] Comment on above: Performed By: #### T YS #### [address] [address] Liquor Clerk: Tre Ferrell MD MCHC (RBC) [Mass/Vol] 31.9 g/dL Normal 28.4-34.8 [facility] Comment on above: Performed By: #### T YS #### [address] [address] Liquor Clerk: Tre Ferrell MD MCV (RBC) [Entitic vol] 93.0 fL Normal 82.6-102.9 [facility] Comment on above: Performed By: #### T YS #### [address] [address] Liquor Clerk: Tre Ferrell MD NRBC Automated 0.0 per 100 WBC Normal 0.0 [facility] Comment on above: Performed By: #### T YS #### [address] [address] Liquor Clerk: Tre Ferrell MD Platelet mean volume (Bld) [Entitic vol] 10.4 fL Normal 8.1-13.5 [facility] Comment on above: Performed By: #### T YS #### [address] [address] Liquor Clerk: Tre Ferrell MD Platelets (Bld) [#/Vol] 173 10*3/uL Normal 138-453 [facility] Comment on above: Performed By: #### T YS #### [address] [address] Liquor Clerk: Tre Ferrell MD RBC (Bld) [#/Vol] 3.44 10*6/uL Low 4.21-5.77 [facility] Comment on above: Performed By: #### T YS #### [address] [address] Liquor Clerk: Tre Ferrell MD WBC (Bld) [#/Vol] 7.2 10*3/uL Normal 3.5-11.3 [facility] Comment on above: Performed By: #### T YS #### [address] [address] Liquor Clerk: Tre Ferrell MD Erythrocyte distribution width (RBC) [Ratio] 12.7 % 11.8 - 14.4 % [facility] [place] Hematocrit (Bld) [Volume fraction] 32.0 % Low 40.7 - 50.3 % [place] Hemoglobin (Bld) [Mass/Vol] 10.2 g/dL Low 13 - 17 g/dL [place] Interpretation and review of laboratory results Abnormal [place] MCH (RBC) [Entitic mass] 29.7 pg 25.2 - 33.5 pg [place] MCHC (RBC) [Mass/Vol] 31.9 g/dL 28.4 - 34.8 g/dL [place] MCV (RBC) [Entitic vol] 93.0 fL 82.6 - 102.9 fL [place] Platelet mean volume (Bld) [Entitic vol] 10.4 fL 8.1 - 13.5 fL [place] Platelets (Bld) [#/Vol] 173 10*3/uL [place] RBC (Bld) [#/Vol] 3.44 10*6/uL Low 4.21 - 5.7 7 m/uL [place] WBC (Bld) [#/Vol] 7.2 10*3/uL [place] WBC (Bld) [#/Vol] 0.0 10*3/uL 0.0 per 10 0 WBC [place] MAGNESIUMon 09-28-2019 Magnesium [Mass/Vol] 1.9 mg/dL 1.6 - 2 .6 mg/dL [place] Magnesiumon 09-28-2019 Magnesium [Mass/Vol] 1.9 mg/dL Normal 1.6-2.6 [facility] Comment on above: Performed By: #### T YS #### [facility] [employer] [address] [place] [address] Liquor Clerk: Tre Ferrell MD PHOSPHORUSon 09-28-2019 Phosphate [Mass/Vol] 3.8 mg/dL 2.5 - 4 .5 mg/dL [place] POC Glucose Fingerstickon Glucose [Mass/Vol] 111 mg/dL High 75 - 110 mg/dL [place] Interpretation and review of laboratory results Abnormal [place] Glucose [Mass/Vol] 143 mg/dL High 75 - 110 mg/dL [place] Interpretation and review of laboratory results Abnormal [place] Glucose [Mass/Vol] 141 mg/dL High 75 - 110 mg/dL [place] Interpretation and review of laboratory results Abnormal [place] Glucose [Mass/Vol] 106 mg/dL 75 - 110 mg/dL [place] PROTIME-INRon 09-28-2019 INR Coag (PPP) [Relative time] 0.9 {INR} [place] Comment on above: Therapeutic Range: Moderate Anticoagulant Intensity: INR = 2.0-3.0 High Anticoagulant Intensity: INR = 2.5-3.5 PT Coag (PPP) [Time] 9.8 s [place] PTon 09-28-2019 INR Coag (PPP) [Relative time] 0.9 {INR} Normal [facility] Comment on above: Result Comment: Therapeutic Range: Moderate Anticoagulant Intensity: INR = 2.0-3.0 High Anticoagulant Intensity: INR = 2.5-3.5 Performed By: #### T YS #### [facility] [employer] [address] [place] [phone] Liquor Clerk: Tre Ferrell MD PT Coag (PPP) [Time] 9.8 s Normal 9.0-12.0 [facility] Comment on above: Performed By: #### T YS #### [facility] [employer] [address] [place] [address] [phone] Liquor Clerk: Tre Ferrell MD Phosphorus, Inorg.on 020 Phosphorus, Inorg. 3.8 mg/dL Normal 2.5-4.5 [facility] Comment on above: Performed By: #### T YS #### [facility] [employer] [address] [place] [address] Liquor Clerk: Tre Ferrell MD Basic Metab w/rfx MGon 09-26 (cont.) Normal [facility] Comment on above: Result Comment: Aver age GFR for 60-69 years old: 85 mL/min/1.73sq m Chronic Kidney Disease: <60 mL/min/1.73sq m Kidney failure: <15 mL/min/1.73sq m eGFR calculated using average adult body mass. Additional eGFR calculator available at: http://www.[employer]/multiple_crcl_2012.htm Performed By: #### T YS #### [facility] [address] [place] [address] Liquor Clerk: Tre Ferrell MD Anion gap [Moles/Vol] 9 mmol/L Normal 9-17 [facility] Comment on above: Performed By: #### T YS #### [facility] [address] [place] [address] Liquor Clerk: Tre Ferrell MD Calcium [Mass/Vol] 8.1 mg/dL Low 8.6-10.4 [facility] Comment on above: Performed By: #### T YS #### [facility] [address] [place] [address] Liquor Clerk: Tre Ferrell MD Chloride [Moles/Vol] 106 mmol/L Normal 98-107 [facility] Comment on above: Performed By: #### T YS #### [facility] [address] [place] [address] Liquor Clerk: Tre Ferrell MD CO2 [Moles/Vol] 27 mmol/L Normal 20-31 [facility] Comment on above: Performed By: #### T YS #### [facility] [address] [place] [address] Liquor Clerk: Tre Ferrell MD Creatinine [Mass/Vol] 0.63 mg/dL Low 0.70-1.20 [facility] Comment on above: Performed By: #### T YS #### [facility] [address] [place] [address] Liquor Clerk: Tre Ferrell MD GFR, Amer >60 Normal >60 [facility] Comment on above: Performed By: #### T YS #### [address] [address] Liquor Clerk: Tre Ferrell MD GFR,non Amer >60 Normal >60 [facility] Comment on above: Performed By: #### T YS #### [address] [address] Liquor Clerk: Tre Ferrell MD Glucose [Mass/Vol] 108 mg/dL High 70-99 [facility] Comment on above: Performed By: #### T YS #### [address] [address] Liquor Clerk: Tre Ferrell MD Potassium [Moles/Vol] 3.9 mmol/L Normal 3.7-5.3 [facility] Comment on above: Performed By: #### T YS #### [address] [address] Liquor Clerk: Tre Ferrell MD Sodium [Moles/Vol] 142 mmol/L Normal 135-144 [facility] Comment on above: Performed By: #### T YS #### [address] [address] Liquor Clerk: Tre Ferrell MD Urea nitrogen [Mass/Vol] 10 mg/dL Normal 8- [facility] Comment on above: Performed By: #### T YS #### [address] [address] Liquor Clerk: Tre Ferrell MD BUN/CRE Ratio NOT REPORTED Normal - [facility] Comment on above: Performed By: #### T YS #### [address] [address] Liquor Clerk: Tre Ferrell MD Staging: NOT REPORTED Normal [facility] Comment on above: Performed By: #### T YS #### [facility] [address] [phone] Liquor Clerk: Tre Ferrell MD Basic Metabolic Panel w/ Ref kylee to MGon 09-27-2019 Anion gap [Moles/Vol] 9 mmol/L 9 - 17 mmol/L [place] Bun/Cre Ratio NOT REPORTED [place] Calcium [Mass/Vol] 8.1 mg/dL Low 8.6 - 10. 4 mg/dL [place] Chloride [Moles/Vol] 106 mmol/L 98 - 10 7 mmol/L [place] CO2 [Moles/Vol] 27 mmol/L 20 - 31 mmol/L [place] Creatinine [Mass/Vol] 0.63 mg/dL Low 0.7 - 1.2 mg/dL [place] GFR >60 >60 mL/min [place] GFR Non- >60 >60 mL/min [place] GFR/1.73 sq M predicted among non-blacks MDRD (S/P/Bld) [Vol rate/Area] NOT REPORTED [place] GFR/1.73 sq M predicted among non-blacks MDRD (S/P/Bld) [Vol rate/Area] [place] Comment on above: Average GFR for 60-6 9 years old: 85 mL/min/1.73sq m Chronic Kidney Disease: <60 mL/min/1.73sq m Kidney failure: <15 mL/min/1.73sq m eGFR calculated using average adult body mass. Additional eGFR calculator available at: http://www.[employer]com/multiple_crcl_2012.htm Glucose [Mass/Vol] 108 mg/dL High 70 - 99 mg/dL [place] Interpretation and review of laboratory results Abnormal [place] Potassium [Moles/Vol] 3.9 mmol/L 3.7 - 5.3 mmol/L [place] Sodium [Moles/Vol] 142 mmol/L 135 - 144 mmol/L [place] Urea nitrogen [Mass/Vol] 10 mg/dL 8 - 23 mg/dL [place] CBC WITH AUTO DIFFERENTIALon 09-27-2019 Basophils (Bld) [#/Vol] 10*3/uL [place] Basophils/100 WBC (Bld) 0 % 0 - 2 % [place] Differential Type NOT REPORTED [place] Eosinophils (Bld) [#/Vol] 0.15 10*3/uL [place] Eosinophils/100 WBC (Bld) 2 % 1 - 4 % [place] Erythrocyte distribution width (RBC) [Ratio] 13.1 % 11.8 - 14.4 % [place] Hematocrit (Bld) [Volume fraction] 30.9 % Low 40.7 - 50.3 % [place] Hemoglobin (Bld) [Mass/Vol] 9.7 g/dL Low 13 - 17 g/dL [place] Immature granulocytes (Bld) [#/Vol] 0 % 0 [place] Immature granulocytes (Bld) [#/Vol] 0.03 10*3/uL [place] Interpretation and review of laboratory results Abnormal [place] Lymphocytes (Bld) [#/Vol] 1.52 10*3/uL [place] Lymphocytes/100 WBC (Bld) 16 % Low 24 - 43 % [place] MCH (RBC) [Entitic mass] 29.0 pg 25.2 - 33.5 pg [place] MCHC (RBC) [Mass/Vol] 31.4 g/dL 28.4 - 34.8 g/dL [place] MCV (RBC) [Entitic vol] 92.5 fL 82.6 - 102.9 fL [place] Monocytes (Bld) [#/Vol] 0.93 10*3/uL [place] Monocytes/100 WBC (Bld) 10 % 3 - 12 % [place] Platelet mean volume (Bld) [Entitic vol] 10.4 fL 8.1 - 13.5 fL [place] Platelets (Bld) [#/Vol] 144 10*3/uL [place] Platelets (Bld) [#/Vol] NOT REPORTED [place] RBC (Bld) [#/Vol] 3.34 10*6/uL Low 4.21 - 5.7 7 m/uL [place] RBC morphology finding Nom (Bld) NOT REPORTED [place] Segmented neutrophils/100 WBC (Bld) 72 % High 36 - 65 % [place] Segs Absolute 6.64 [place] WBC (Bld) [#/Vol] 0.0 10*3/uL 0.0 per 10 0 WBC [place] WBC (Bld) [#/Vol] 9.3 10*3/uL [place] WBC Morphology NOT REPORTED [place] CBC with Diffon 09-27-2019 Abs. Basophil <0.03 Normal 0.00-0.20 [facility] Comment on above: Performed By: #### T YS #### [address] [address] Liquor Clerk: Tre Ferrell MD Abs.Imm.Granulocyte 0.03 k/uL Normal 0.00-0.30 [facility] Comment on above: Performed By: #### T YS #### [address] [address] Liquor Clerk: Tre Ferrell MD Abs.Neutrophil (Seg) 6.64 k/uL Normal 1.50-8.10 [facility] Comment on above: Performed By: #### T YS #### [address] [address] Liquor Clerk: Tre Ferrell MD Basophils/100 WBC (Bld) 0 % Normal 0-2 [facility] Comment on above: Performed By: #### T YS #### [address] [address] Liquor Clerk: Tre Ferrell MD Eosinophils (Bld) [#/Vol] 0.15 10*3/uL Normal 0.00-0.44 [facility] Comment on above: Performed By: #### T YS #### [address] [address] Liquor Clerk: Tre Ferrell MD Eosinophils/100 WBC (Bld) 2 % Normal 1-4 [facility] Comment on above: Performed By: #### T YS #### [address] [address] Liquor Clerk: Tre Ferrell MD Erythrocyte distribution width (RBC) [Ratio] 13.1 % Normal 11.8-14.4 [facility] Comment on above: Performed By: #### T YS #### [place] [address] Liquor Clerk: Tre Ferrell MD Hematocrit (Bld) [Volume fraction] 30.9 % Low 40.7-50.3 [facility] Comment on above: Performed By: #### T YS #### [address] [address] Liquor Clerk: Tre Ferrell MD Hemoglobin (Bld) [Mass/Vol] 9.7 g/dL Low 13.0-17.0 [facility] Comment on above: Performed By: #### T YS #### [address] [address] Liquor Clerk: Tre Ferrell MD Immature granulocytes (Bld) [#/Vol] 0 % Normal 0 [facility] Comment on above: Performed By: #### T YS #### [address] [address] Liquor Clerk: Tre Ferrell MD Lymphocytes (Bld) [#/Vol] 1.52 10*3/uL Normal 1.10-3.70 [facility] Comment on above: Performed By: #### T YS #### [address] [address] Liquor Clerk: Tre Ferrell MD Lymphocytes/100 WBC (Bld) 16 % Low 24-43 [facility] Comment on above: Performed By: #### T YS #### [place] [address] Liquor Clerk: Tre Ferrell MD MCH (RBC) [Entitic mass] 29.0 pg Normal 25.2-33.5 [facility] Comment on above: Performed By: #### T YS #### [place] [address] Liquor Clerk: Tre Ferrell MD MCHC (RBC) [Mass/Vol] 31.4 g/dL Normal 28.4-34.8 [facility] Comment on above: Performed By: #### T YS #### [place] [address] Liquor Clerk: Tre Ferrell MD MCV (RBC) [Entitic vol] 92.5 fL Normal 82.6-102.9 [facility] Comment on above: Performed By: #### T YS #### [place] [address] Liquor Clerk: Tre Ferrell MD Monocytes (Bld) [#/Vol] 0.93 10*3/uL Normal 0.10-1.20 [facility] Comment on above: Performed By: #### T YS #### [address] [address] Liquor Clerk: Tre Ferrell MD Monocytes/100 WBC (Bld) 10 % Normal 3-12 [facility] Comment on above: Performed By: #### T YS #### [address] [address] Liquor Clerk: Tre Ferrell MD Neutrophil (Seg) 72 % High 36-65 [facility] Comment on above: Performed By: #### T YS #### [address] [address] Liquor Clerk: Tre Ferrell MD NRBC Automated 0.0 per 100 WBC Normal 0.0 [facility] Comment on above: Performed By: #### T YS #### [address] [address] Liquor Clerk: Tre Ferrell MD Platelet mean volume (Bld) [Entitic vol] 10.4 fL Normal 8.1-13.5 [facility] Comment on above: Performed By: #### T YS #### [address] [address] Liquor Clerk: Tre Ferrell MD Platelets (Bld) [#/Vol] 144 10*3/uL Normal 138-453 [facility] Comment on above: Performed By: #### T YS #### [address] [address] Liquor Clerk: Tre Ferrell MD RBC (Bld) [#/Vol] 3.34 10*6/uL Low 4.21-5.77 [facility] Comment on above: Performed By: #### T YS #### [address] [address] Liquor Clerk: Tre Ferrell MD WBC (Bld) [#/Vol] 9.3 10*3/uL Normal 3.5-11.3 [facility] Comment on above: Performed By: #### T YS #### [address] [address] Liquor Clerk: Tre Ferrell MD Auto Diff Performed NOT REPORTED Normal [facility] Comment on above: Performed By: #### T YS #### [facility] [address] [place] [address] Liquor Clerk: Tre Ferrell MD Platelets (Bld) [#/Vol] NOT REPORTED Normal [facility] Comment on above: Performed By: #### T YS #### [facility] [address] [place] [address] Liquor Clerk: Tre Ferrell MD RBC morphology finding Nom (Bld) NOT REPORTED Normal [facility] Comment on above: Performed By: #### T YS #### [facility] [facility] [place] [address] Liquor Clerk: Tre Ferrell MD WBC Morphology NOT REPORTED Normal [facility] Comment on above: Performed By: #### T YS #### [facility] [address] [place] [address] Liquor Clerk: Tre Ferrell MD POC Glucose Fingerstickon Glucose [Mass/Vol] 151 mg/dL High 75 - 110 mg/dL [place] Interpretation and review of laboratory results Abnormal [place] Glucose [Mass/Vol] 93 mg/dL 75 - 110 mg/dL [place] XR CHEST PORTABLEon 09-27-19 20 XR [...] Karan Palomo MD 09/27/19 Final result Normal [facility] Interval extubation. Enteric tube stable. Elevation right hemidiaphragm with some opacity medial right base; consider atelectasis; aspiration/pneumonia should also be considered. [place] EXAMINATION: ONE XRAY VIEW OF THE [...] large pleural effusion or pneumothorax. Bones unchanged. [place] Samm, [facility] Incoming Radiant Results From [facility] - 09/27/2019 8:29 AM EDT EXAMINATION: ONE [...] consider atelectasis; aspiration/pneumonia should also be considered. [place] Arterial Blood Gas, POCon Mino Test NOT REPORTED [place] aPTT Coag (Bld) [Time] NOT REPORTED [place] FIO2 30.0 [place] Mode NOT REPORTED [place] Negative Base Excess, Art NOT REPORTED [place] O2 Device/Flow/% Adult Ventilator [place] Oxygen saturation in Blood 97 % 94 - 98 % [place] POC HCO3 31.2 mmol/L High 21 - 28 mmol/L [place] POC pCO2 49.1 High [place] POC pCO2 Temp NOT REPORTED mm Hg [place] POC pH 7.411 [place] POC pH Temp NOT REPORTED [place] POC PO2 88.2 [place] POC pO2 Temp NOT REPORTED mm Hg [place] Positive Base Excess, Art 6 High [place] Sample Site Arterial Line [place] TCO2 (calc), Art 33 mmol/L High 22 - 29 mmol/L [place] Mino Test NOT REPORTED [place] aPTT Coag (Bld) [Time] NOT REPORTED [place] FIO2 30.0 [place] Mode NOT REPORTED [place] Negative Base Excess, Art NOT REPORTED [place] O2 Device/Flow/% Adult Ventilator [place] Oxygen saturation in Blood 98 % 94 - 98 % [place] POC HCO3 29.8 mmol/L High 21 - 28 mmol/L [place] POC pCO2 46.0 [place] POC pCO2 Temp NOT REPORTED mm Hg [place] POC pH 7.420 [place] POC pH Temp NOT REPORTED [place] POC PO2 112.3 High [place] POC pO2 Temp NOT REPORTED mm Hg [place] Positive Base Excess, Art 5 High [place] Sample Site Arterial Line [place] TCO2 (calc), Art 31 mmol/L High 22 - 29 mmol/L [place] Basic Metab w/rfx MGon 09-25 (cont.) Normal [facility] Comment on above: Result Comment: Aver age GFR for 60-69 years old: 85 mL/min/1.73sq m Chronic Kidney Disease: <60 mL/min/1.73sq m Kidney failure: <15 mL/min/1.73sq m eGFR calculated using average adult body mass. Additional eGFR calculator available at: http://www.[employer]/multiple_crcl_2012.htm Performed By: #### E RTPF #### [address] [address] Liquor Clerk: Tre Ferrell MD Anion gap [Moles/Vol] 9 mmol/L Normal 9-17 [facility] Comment on above: Performed By: #### E RTPF #### [address] [address] Liquor Clerk: Tre Ferrell MD Calcium [Mass/Vol] 8.2 mg/dL Low 8.6-10.4 [facility] Comment on above: Performed By: #### E RTPF #### [address] [address] Liquor Clerk: Tre Ferrell MD Chloride [Moles/Vol] 103 mmol/L Normal 98-107 [facility] Comment on above: Performed By: #### E RTPF #### [address] [address] Liquor Clerk: Tre Ferrell MD CO2 [Moles/Vol] 26 mmol/L Normal 20-31 [facility] Comment on above: Performed By: #### E RTPF #### [address] [address] Liquor Clerk: Tre Ferrell MD Creatinine [Mass/Vol] 0.60 mg/dL Low 0.70-1.20 [facility] Comment on above: Performed By: #### E RTPF #### [address] [address] Liquor Clerk: Tre Ferrell MD GFR, Amer >60 Normal >60 [facility] Comment on above: Performed By: #### E RTPF #### [address] [address] Liquor Clerk: Tre Ferrell MD GFR,non Amer >60 Normal >60 [facility] Comment on above: Performed By: #### E RTPF #### [facility] [address] [place] [address] Liquor Clerk: Tre Ferrell MD Glucose [Mass/Vol] 158 mg/dL High 70-99 [facility] Comment on above: Performed By: #### E RTPF #### [address] [address] Liquor Clerk: Tre Ferrell MD Potassium [Moles/Vol] 4.0 mmol/L Normal 3.7-5.3 [facility] Comment on above: Performed By: #### E RTPF #### [address] [address] Liquor Clerk: Tre Ferrell MD Sodium [Moles/Vol] 138 mmol/L Normal 135-144 [facility] Comment on above: Performed By: #### E RTPF #### [address] [address] Liquor Clerk: Tre Ferrell MD Urea nitrogen [Mass/Vol] 10 mg/dL Normal 8-23 [facility] Comment on above: Performed By: #### E RTPF #### [address] [address] Liquor Clerk: Tre Ferrell MD BUN/CRE Ratio NOT REPORTED Normal 9-20 [facility] Comment on above: Performed By: #### E RTPF #### [facility] [address] [place] [address] Liquor Clerk: Tre Ferrell MD Staging: NOT REPORTED Normal [facility] Comment on above: Performed By: #### E RTPF #### [facility] [address] [place] [address] Liquor Clerk: Tre Ferrell MD Basic Metabolic Panel w/ Ref kylee to on 09-26-2019 Anion gap [Moles/Vol] 9 mmol/L 9 - 17 mmol/L [place] Bun/Cre Ratio NOT REPORTED [place] Calcium [Mass/Vol] 8.2 mg/dL Low 8.6 - 10. 4 mg/dL [place] Chloride [Moles/Vol] 103 mmol/L 98 - 10 7 mmol/L [place] CO2 [Moles/Vol] 26 mmol/L 20 - 31 mmol/L [place] Creatinine [Mass/Vol] 0.6 mg/dL Low 0.7 - 1.2 mg/dL [place] GFR >60 >60 mL/min [place] GFR Non- >60 >60 mL/min [place] GFR/1.73 sq M predicted among non-blacks MDRD (S/P/Bld) [Vol rate/Area] [place] Comment on above: Average GFR for 60-6 9 years old: 85 mL/min/1.73sq m Chronic Kidney Disease: <60 mL/min/1.73sq m Kidney failure: <15 mL/min/1.73sq m eGFR calculated using average adult body mass. Additional eGFR calculator available at: http://www.[employer]/multiple_crcl_2012.htm GFR/1.73 sq M predicted among non-blacks MDRD (S/P/Bld) [Vol rate/Area] NOT REPORTED [place] Glucose [Mass/Vol] 158 mg/dL High 70 - 99 mg/dL [place] Interpretation and review of laboratory results Abnormal [place] Potassium [Moles/Vol] 4.0 mmol/L 3.7 - 5.3 mmol/L [place] Sodium [Moles/Vol] 138 mmol/L 135 - 144 mmol/L [place] Urea nitrogen [Mass/Vol] 10 mg/dL 8 - 23 mg/dL [place] CBC WITH AUTO DIFFERENTIALon 09-26-2019 Basophils (Bld) [#/Vol] 0.03 10*3/uL [place] Basophils/100 WBC (Bld) 0 % 0 - 2 % M [place] Differential Type NOT REPORTED [place] Eosinophils (Bld) [#/Vol] 0.08 10*3/uL [place] Eosinophils/100 WBC (Bld) 1 % 1 - 4 % [place] Erythrocyte distribution width (RBC) [Ratio] 13.2 % 11.8 - 14.4 % [place] Hematocrit (Bld) [Volume fraction] 30.7 % Low 40.7 - 50.3 % [place] Hemoglobin (Bld) [Mass/Vol] 9.6 g/dL Low 13 - 17 g/dL [place] Immature granulocytes (Bld) [#/Vol] 0.04 10*3/uL [place] Immature granulocytes (Bld) [#/Vol] 1 % High 0 [place] Interpretation and review of laboratory results Abnormal [place] Lymphocytes (Bld) [#/Vol] 1.10 10*3/uL [place] Lymphocytes/100 WBC (Bld) 14 % Low 24 - 43 % [place] MCH (RBC) [Entitic mass] 29.2 pg 25.2 - 33.5 pg [place] MCHC (RBC) [Mass/Vol] 31.3 g/dL 28.4 - 34.8 g/dL [place] MCV (RBC) [Entitic vol] 93.3 fL 82.6 - 102.9 fL [place] Monocytes (Bld) [#/Vol] 0.81 10*3/uL [place] Monocytes/100 WBC (Bld) 10 % 3 - 12 % [place] Platelet mean volume (Bld) [Entitic vol] NOT REPORTED 8.1 - 13.5 fL [place] Platelets (Bld) [#/Vol] NOT REPORTED [place] Platelets (Bld) [#/Vol] See Reflexed IPF Result [place] RBC (Bld) [#/Vol] 3.29 10*6/uL Low 4.21 - 5.7 7 m/uL [place] RBC morphology finding Nom (Bld) NOT REPORTED [place] Segmented neutrophils/100 WBC (Bld) 74 % High 36 - 65 % [place] Segs Absolute 5.82 [place] WBC (Bld) [#/Vol] 7.9 10*3/uL [place] WBC (Bld) [#/Vol] 0.0 10*3/uL 0.0 per 10 0 WBC [place] WBC Morphology NOT REPORTED [place] CBC with Diffon 09-26-2019 Abs. Basophil 0.03 k/uL Normal 0.00-0.20 [facility] Comment on above: Performed By: #### E RTPF #### [facility] [employer] [address] [place] [address] Liquor Clerk: Tre Ferrell MD Abs.Imm.Granulocyte 0.04 k/uL Normal 0.00-0.30 [facility] Comment on above: Performed By: #### E RTPF #### [facility] [employer] [facility] [place] [address] Liquor Clerk: Tre Ferrell MD Abs.Neutrophil (Seg) 5.82 k/uL Normal 1.50-8.10 [facility] Comment on above: Performed By: #### E RTPF #### [facility] [employer] [address] [place] [address] Liquor Clerk: Tre Ferrell MD Basophils/100 WBC (Bld) 0 % Normal 0-2 [facility] Comment on above: Performed By: #### E RTPF #### [address] [address] Liquor Clerk: Tre Ferrell MD Eosinophils (Bld) [#/Vol] 0.08 10*3/uL Normal 0.00-0.44 [facility] Comment on above: Performed By: #### E RTPF #### [address] [address] Liquor Clerk: Tre Ferrell MD Eosinophils/100 WBC (Bld) 1 % Normal 1-4 [facility] Comment on above: Performed By: #### E RTPF #### [address] [address] Liquor Clerk: Tre Ferrell MD Erythrocyte distribution width (RBC) [Ratio] 13.2 % Normal 11.8-14.4 [facility] Comment on above: Performed By: #### E RTPF #### [address] [address] Liquor Clerk: Tre Ferrell MD Hematocrit (Bld) [Volume fraction] 30.7 % Low 40.7-50.3 [facility] Comment on above: Performed By: #### E RTPF #### [address] [address] Liquor Clerk: Tre Ferrell MD Hemoglobin (Bld) [Mass/Vol] 9.6 g/dL Low 13.0-17.0 [facility] Comment on above: Performed By: #### E RTPF #### [address] [address] Liquor Clerk: Tre Ferrell MD Immature granulocytes (Bld) [#/Vol] 1 % High 0 [facility] Comment on above: Performed By: #### E RTPF #### [address] [address] Liquor Clerk: Tre Ferrell MD Lymphocytes (Bld) [#/Vol] 1.10 10*3/uL Normal 1.10-3.70 [facility] Comment on above: Performed By: #### E RTPF #### [place] [address] Liquor Clerk: Tre Ferrell MD Lymphocytes/100 WBC (Bld) 14 % Low 24-43 [facility] Comment on above: Performed By: #### E RTPF #### [place] [address] Liquor Clerk: Tre Ferrell MD MCH (RBC) [Entitic mass] 29.2 pg Normal 25.2-33.5 [facility] Comment on above: Performed By: #### E RTPF #### [place] [address] Liquor Clerk: Tre Ferrell MD MCHC (RBC) [Mass/Vol] 31.3 g/dL Normal 28.4-34.8 [facility] Comment on above: Performed By: #### E RTPF #### [place] [address] Liquor Clerk: Tre Ferrell MD MCV (RBC) [Entitic vol] 93.3 fL Normal 82.6-102.9 [facility] Comment on above: Performed By: #### E RTPF #### [place] [address] Liquor Clerk: Tre Ferrell MD Monocytes (Bld) [#/Vol] 0.81 10*3/uL Normal 0.10-1.20 [facility] Comment on above: Performed By: #### E RTPF #### [address] [address] Liquor Clerk: Tre Ferrell MD Monocytes/100 WBC (Bld) 10 % Normal 3-12 [facility] Comment on above: Performed By: #### E RTPF #### [address] [address] Liquor Clerk: Tre Ferrell MD Neutrophil (Seg) 74 % High 36-65 [facility] Comment on above: Performed By: #### E RTPF #### [address] [address] Liquor Clerk: Tre Ferrell MD NRBC Automated 0.0 per 100 WBC Normal 0.0 [facility] Comment on above: Performed By: #### E RTPF #### [address] [address] Liquor Clerk: Tre Ferrell MD Platelets (Bld) [#/Vol] See Reflexed IPF Result Normal 138-453 [facility] Comment on above: Performed By: #### E RTPF #### [address] [address] Liquor Clerk: Tre Ferrell MD RBC (Bld) [#/Vol] 3.29 10*6/uL Low 4.21-5.77 [facility] Comment on above: Performed By: #### E RTPF #### [address] [address] Liquor Clerk: Tre Ferrell MD WBC (Bld) [#/Vol] 7.9 10*3/uL Normal 3.5-11.3 [facility] Comment on above: Performed By: #### E RTPF #### [address] [address] Liquor Clerk: Tre Ferrell MD Auto Diff Performed NOT REPORTED Normal [facility] Comment on above: Performed By: #### E RTPF #### [address] [address] Liquor Clerk: Tre Ferrell MD Platelet mean volume (Bld) [Entitic vol] NOT REPORTED Normal 8.1-13.5 [facility] Comment on above: Performed By: #### E RTPF #### [address] [address] Liquor Clerk: Tre Ferrell MD Platelets (Bld) [#/Vol] NOT REPORTED Normal [facility] Comment on above: Performed By: #### E RTPF #### [address] [address] Liquor Clerk: Tre Ferrell MD RBC morphology finding Nom (Bld) NOT REPORTED Normal [facility] Comment on above: Performed By: #### E RTPF #### [address] [address] Liquor Clerk: rTe Ferrell MD WBC Morphology NOT REPORTED Normal [facility] Comment on above: Performed By: #### E RTPF #### [address] [address] Liquor Clerk: Tre Ferrell MD Extubationon 09-26-2019 Braden Ziegler RCP 09/26/2019 6:36 PM Order obtained for extubation. SpO2 of 30 on 100% FiO2. Patient extubated and placed on 30% O2 via HFNC. Patient had mild cough that was productive of clear and white sputum. Extubation Well tolerated by patient.. Breath Sounds: clear BRADEN ZIEGLER 6:35 PM [place] Immature Platelet Fractionon 09-26-2019 Interpretation and review of laboratory results Abnormal [place] Platelet, Fluorescence 123 Low [place] Comment on above: ORDERED BY LAB Platelet, Immature Fraction 4.7 % 1.1 - 10.3 % [place] Comment on above: ORDERED BY LAB Lactic Acid, POCon 0 POC Lactic Acid 0.35 mmol/L Low 0.56 - 1.39 mmol/L [place] POC Lactic Acid 0.32 mmol/L Low 0.56 - 1.39 mmol/L [place] Otheron 09-26-2019 Interpretation and review of laboratory results Abnormal [place] Interpretation and review of laboratory results Abnormal [place] PLT, Immature Fract.on 09-25 Platelet, Fluoresc. 123 k/uL Low 138-453 [facility] Comment on above: Result Comment: ORDE RED BY LAB Performed By: #### E RTPF #### [address] [place], [place] [id number] Liquor Clerk: Tre Ferrell MD PLT, Immature Fract. 4.7 % Normal 1.1-10.3 [facility] Comment on above: Result Comment: ORDE RED BY LAB Performed By: #### E RTPF #### [address] [place], [place] [phone] Liquor Clerk: Tre Ferrell MD POC Glucose Fingerstickon Glucose [Mass/Vol] 88 mg/dL 75 - 110 mg/dL [place] Glucose [Mass/Vol] 122 mg/dL High 75 - 110 mg/dL [place] Interpretation and review of laboratory results Abnormal [place] Glucose [Mass/Vol] 124 mg/dL High 75 - 110 mg/dL [place] Interpretation and review of laboratory results Abnormal [place] POCT Glucoseon 09-26-2019 Glucose [Mass/Vol] 130 mg/dL High 74 - 100 mg/dL [place] Glucose [Mass/Vol] 156 mg/dL High 74 - 100 mg/dL [place] XR CHEST PORTABLEon 09-26-19 20 XR [...] Dewayne Lopez MD 09/26/19 Final result Normal [facility] No acute cardiopulmonary process. Stable support tubes. [place] Samm, Mhpn Incoming Radiant Results From [employer] - 09/26/2019 10:01 AM EDT EXAMINATION: ONE [...] No acute cardiopulmonary process. Stable support tubes. [place] EXAMINATION: ONE XRAY VIEW OF THE [...] tube and the tip is not visualized. [place] Arterial Blood Gas, POCon Mino Test NOT REPORTED [place] aPTT Coag (Bld) [Time] NOT REPORTED [place] FIO2 30.0 [place] Mode NOT REPORTED [place] Negative Base Excess, Art NOT REPORTED [place] O2 Device/Flow/% Adult Ventilator [place] Oxygen saturation in Blood 98 % 94 - 98 % [place] POC HCO3 25.9 mmol/L 21 - 28 mmol/L [place] POC pCO2 45.8 [place] POC pCO2 Temp NOT REPORTED mm Hg [facility] [place] POC pH 7.361 [place] POC pH Temp NOT REPORTED [facility] [place] P[place] PO2 100.9 [place] POC pO2 Temp NOT REPORTED mm Hg [place] Positive Base Excess, Art 0 [place] Sample Site Arterial Line [place] TCO2 (calc), Art 27 mmol/L 22 - 29 mmol/L [place] Basic Metab w/rfx MGon 09-24 (cont.) Normal [facility] Comment on above: Result Comment: Aver age GFR for 60-69 years old: 85 mL/min/1.73sq m Chronic Kidney Disease: <60 mL/min/1.73sq m Kidney failure: <15 mL/min/1.73sq m eGFR calculated using average adult body mass. Additional eGFR calculator available at: http://www.[employer]/multiple_crcl_2012.htm Performed By: #### E RTPF #### [facility] [employer] [address] [place] [address] [phone] Liquor Clerk: Tre Ferrell MD Anion gap [Moles/Vol] 11 mmol/L Normal 9-17 [facility] Comment on above: Performed By: #### E RTPF #### [facility] [employer] [facility] [place], [place] [phone] Liquor Clerk: Tre Ferrell MD Calcium [Mass/Vol] 8.1 mg/dL Low 8.6-10.4 [facility] Comment on above: Performed By: #### E RTPF #### [facility] [employer] [address] [place] [address] [phone] Liquor Clerk: Tre Ferrell MD Chloride [Moles/Vol] 110 mmol/L High 98-107 [facility] Comment on above: Performed By: #### E RTPF #### [address] [address] Liquor Clerk: Tre Ferrell MD CO2 [Moles/Vol] 21 mmol/L Normal 20-31 [facility] Comment on above: Performed By: #### E RTPF #### [address] [address] Liquor Clerk: Tre Ferrell MD Creatinine [Mass/Vol] 0.73 mg/dL Normal 0.70-1.20 [facility] Comment on above: Performed By: #### E RTPF #### [address] [address] Liquor Clerk: Tre Ferrell MD GFR, Amer >60 Normal >60 [facility] Comment on above: Performed By: #### E RTPF #### [address] [address] Liquor Clerk: Tre Ferrell MD GFR,non Amer >60 Normal >60 [facility] Comment on above: Performed By: #### E RTPF #### [address] [address] Liquor Clerk: Tre Ferrell MD Glucose [Mass/Vol] 134 mg/dL High 70-99 [facility] Comment on above: Performed By: #### E RTPF #### [address] [address] Liquor Clerk: Tre Ferrell MD Potassium [Moles/Vol] 4.1 mmol/L Normal 3.7-5.3 [facility] Comment on above: Performed By: #### E RTPF #### [address] [address] Liquor Clerk: Tre Ferrell MD Sodium [Moles/Vol] 142 mmol/L Normal 135-144 [facility] Comment on above: Performed By: #### E RTPF #### [facility] [address] [place] [address] Liquor Clerk: Tre Ferrell MD Urea nitrogen [Mass/Vol] 13 mg/dL Normal 8- [facility] Comment on above: Performed By: #### E RTPF #### [facility] [address] [place] [address] Liquor Clerk: Tre Ferrell MD BUN/CRE Ratio NOT REPORTED Normal - [facility] Comment on above: Performed By: #### E RTPF #### [facility] [employer] [address] [place] [address] Liquor Clerk: Tre Ferrell MD Staging: NOT REPORTED Normal [facility] Comment on above: Performed By: #### E RTPF #### [facility] [employer] [address] [place] [address] Liquor Clerk: Tre Ferrell MD Basic Metabolic Panel w/ Ref kylee to MGon 09-25-2019 Anion gap [Moles/Vol] 11 mmol/L 9 - 17 mmol/L [place] Bun/Cre Ratio NOT REPORTED [place] Calcium [Mass/Vol] 8.1 mg/dL Low 8.6 - 10. 4 mg/dL [place] Chloride [Moles/Vol] 110 mmol/L High 98 - 10 7 mmol/L [place] CO2 [Moles/Vol] 21 mmol/L 20 - 31 mmol/L [place] Creatinine [Mass/Vol] 0.73 mg/dL 0.7 - 1.2 mg/dL [place] GFR >60 >60 mL/min [place] GFR Non- >60 >60 mL/min [place] GFR/1.73 sq M predicted among non-blacks MDRD (S/P/Bld) [Vol rate/Area] [place] Comment on above: Average GFR for 60-6 9 years old: 85 mL/min/1.73sq m Chronic Kidney Disease: <60 mL/min/1.73sq m Kidney failure: <15 mL/min/1.73sq m eGFR calculated using average adult body mass. Additional eGFR calculator available at: http://www.[employer]/multiple_crcl_2012.htm GFR/1.73 sq M predicted among non-blacks MDRD (S/P/Bld) [Vol rate/Area] NOT REPORTED [place] Glucose [Mass/Vol] 134 mg/dL High 70 - 99 mg/dL [place] Interpretation and review of laboratory results Abnormal [place] Potassium [Moles/Vol] 4.1 mmol/L 3.7 - 5.3 mmol/L [place] Sodium [Moles/Vol] 142 mmol/L 135 - 144 mmol/L [place] Urea nitrogen [Mass/Vol] 13 mg/dL 8 - 23 mg/dL [place] CBC WITH AUTO DIFFERENTIALon 09-25-2019 Basophils (Bld) [#/Vol] 10*3/uL [place] Basophils/100 WBC (Bld) 0 % 0 - 2 % [place] Differential Type NOT REPORTED [place] Eosinophils (Bld) [#/Vol] 10*3/uL [place] Eosinophils/100 WBC (Bld) 0 % Low 1 - 4 % [place] Erythrocyte distribution width (RBC) [Ratio] 13.5 % 11.8 - 14.4 % [place] Hematocrit (Bld) [Volume fraction] 32.9 % Low 40.7 - 50.3 % [place] Hemoglobin (Bld) [Mass/Vol] 10.1 g/dL Low 13 - 17 g/dL [place] Immature granulocytes (Bld) [#/Vol] 0.06 10*3/uL [place] Immature granulocytes (Bld) [#/Vol] 1 % High 0 [place] Interpretation and review of laboratory results Abnormal [place] Lymphocytes (Bld) [#/Vol] 1.20 10*3/uL [place] Lymphocytes/100 WBC (Bld) 12 % Low 24 - 43 % [place] MCH (RBC) [Entitic mass] 28.5 pg 25.2 - 33.5 pg [place] MCHC (RBC) [Mass/Vol] 30.7 g/dL 28.4 - 34.8 g/dL [place] MCV (RBC) [Entitic vol] 92.9 fL 82.6 - 102.9 fL [place] Monocytes (Bld) [#/Vol] 1.34 10*3/uL [place] Monocytes/100 WBC (Bld) 14 % High 3 - 12 % M [place] Platelet mean volume (Bld) [Entitic vol] NOT REPORTED 8.1 - 13.5 fL [place] Platelets (Bld) [#/Vol] See Reflexed IPF Result [place] Platelets (Bld) [#/Vol] NOT REPORTED [place] RBC (Bld) [#/Vol] 3.54 10*6/uL Low 4.21 - 5.7 7 m/uL [place] RBC morphology finding Nom (Bld) NOT REPORTED [place] Segmented neutrophils/100 WBC (Bld) 74 % High 36 - 65 % [place] Segs Absolute 7.33 [place] WBC (Bld) [#/Vol] 10.0 10*3/uL [place] WBC (Bld) [#/Vol] 0.0 10*3/uL 0.0 per 10 0 WBC [place] WBC Morphology NOT REPORTED [place] CBC with Diffon 09-25-2019 Abs. Basophil <0.03 Normal 0.00-0.20 [facility] Comment on above: Performed By: #### E RTPF #### [address] [address] Liquor Clerk: Tre Ferrell MD Abs.Imm.Granulocyte 0.06 k/uL Normal 0.00-0.30 [facility] Comment on above: Performed By: #### E RTPF #### [address] [address] Liquor Clerk: Tre Ferrell MD Abs.Neutrophil (Seg) 7.33 k/uL Normal 1.50-8.10 [facility] Comment on above: Performed By: #### E RTPF #### [address] [address] Liquor Clerk: Tre Ferrell MD Basophils/100 WBC (Bld) 0 % Normal 0-2 [facility] Comment on above: Performed By: #### E RTPF #### [address] [address] Liquor Clerk: Tre Ferrell MD Eosinophils (Bld) [#/Vol] 10*3/uL Normal 0.00-0.44 [facility] Comment on above: Performed By: #### E RTPF #### [address] [address] Liquor Clerk: Tre Ferrell MD Eosinophils/100 WBC (Bld) 0 % Low 1-4 [facility] Comment on above: Performed By: #### E RTPF #### [address] [address] Liquor Clerk: Tre Ferrell MD Erythrocyte distribution width (RBC) [Ratio] 13.5 % Normal 11.8-14.4 [facility] Comment on above: Performed By: #### E RTPF #### [address] [address] Liquor Clerk: Tre Ferrell MD Hematocrit (Bld) [Volume fraction] 32.9 % Low 40.7-50.3 [facility] Comment on above: Performed By: #### E RTPF #### [address] [address] Liquor Clerk: Tre Ferrell MD Hemoglobin (Bld) [Mass/Vol] 10.1 g/dL Low 13.0-17.0 [facility] Comment on above: Performed By: #### E RTPF #### [place] [address] Liquor Clerk: Tre Ferrell MD Immature granulocytes (Bld) [#/Vol] 1 % High 0 [facility] Comment on above: Performed By: #### E RTPF #### [place] [address] Liquor Clerk: Tre Ferrell MD Lymphocytes (Bld) [#/Vol] 1.20 10*3/uL Normal 1.10-3.70 [facility] Comment on above: Performed By: #### E RTPF #### [address] [address] Liquor Clerk: Tre Ferrell MD Lymphocytes/100 WBC (Bld) 12 % Low 24-43 [facility] Comment on above: Performed By: #### E RTPF #### [place] [address] Liquor Clerk: Tre Ferrell MD MCH (RBC) [Entitic mass] 28.5 pg Normal 25.2-33.5 [facility] Comment on above: Performed By: #### E RTPF #### [address] [address] Liquor Clerk: Tre Ferrell MD MCHC (RBC) [Mass/Vol] 30.7 g/dL Normal 28.4-34.8 [facility] Comment on above: Performed By: #### E RTPF #### [address] [address] Liquor Clerk: Tre Ferrell MD MCV (RBC) [Entitic vol] 92.9 fL Normal 82.6-102.9 [facility] Comment on above: Performed By: #### E RTPF #### [address] [address] Liquor Clerk: Tre Ferrell MD Monocytes (Bld) [#/Vol] 1.34 10*3/uL High 0.10-1.20 [facility] Comment on above: Performed By: #### E RTPF #### [place] [address] Liquor Clerk: Tre Ferrell MD Monocytes/100 WBC (Bld) 14 % High 3-12 [facility] Comment on above: Performed By: #### E RTPF #### [address] [address] Liquor Clerk: Tre Ferrell MD Neutrophil (Seg) 74 % High 36-65 [facility] Comment on above: Performed By: #### E RTPF #### [address] [address] Liquor Clerk: Tre Ferrell MD NRBC Automated 0.0 per 100 WBC Normal 0.0 [facility] Comment on above: Performed By: #### E RTPF #### [address] [address] Liquor Clerk: Tre Ferrell MD Platelets (Bld) [#/Vol] See Reflexed IPF Result Normal 138-453 [facility] Comment on above: Performed By: #### E RTPF #### [address] [address] Liquor Clerk: Tre Ferrell MD RBC (Bld) [#/Vol] 3.54 10*6/uL Low 4.21-5.77 [facility] Comment on above: Performed By: #### E RTPF #### [address] [address] Liquor Clerk: Tre Ferrell MD WBC (Bld) [#/Vol] 10.0 10*3/uL Normal 3.5-11.3 [facility] Comment on above: Performed By: #### E RTPF #### [address] [address] Liquor Clerk: Tre Ferrell MD Auto Diff Performed NOT REPORTED Normal [facility] Comment on above: Performed By: #### E RTPF #### [address] [address] Liquor Clerk: Tre Ferrell MD Platelet mean volume (Bld) [Entitic vol] NOT REPORTED Normal 8.1-13.5 [facility] Comment on above: Performed By: #### E RTPF #### [address] [address] Liquor Clerk: Tre Ferrell MD Platelets (Bld) [#/Vol] NOT REPORTED Normal [facility] Comment on above: Performed By: #### E RTPF #### [address] [address] Liquor Clerk: Tre Ferrell MD RBC morphology finding Nom (Bld) NOT REPORTED Normal [facility] Comment on above: Performed By: #### E RTPF #### [address] [address] Liquor Clerk: Tre Ferrell MD WBC Morphology NOT REPORTED Normal [facility] Comment on above: Performed By: #### E RTPF #### [facility] [employer] [address] [place] [address] Liquor Clerk: Tre Ferrell MD Immature Platelet Fractionon 09-25-2019 Interpretation and review of laboratory results Abnormal [place] Platelet, Fluorescence 129 Low [place] Comment on above: ORDERED BY LAB Platelet, Immature Fraction 4.3 % 1.1 - 10.3 % [place] Comment on above: ORDERED BY LAB Lactic Acid, POCon 0 POC Lactic Acid 0.68 mmol/L 0.56 - 1.39 mmol/L [place] PLT, Immature Fract.on 09-24 Platelet, Fluoresc. 129 k/uL Low 138-453 [facility] Comment on above: Result Comment: ORDE RED BY LAB Performed By: #### E RTPF #### [address] [address] Liquor Clerk: Tre Ferrell MD PLT, Immature Fract. 4.3 % Normal 1.1-10.3 [facility] Comment on above: Result Comment: ORDE RED BY LAB Performed By: #### E RTPF #### [address] [address] Liquor Clerk: Tre Ferrell MD XR CERVICAL SPINE (2-3 [...] Beverly Allen DO 09/25/19 Final result Normal [facility] Status post C3-C5 posterior decompression and fusion. [facility] [place] EXAMINATION: 2 XRAY VIEWS OF THE CERVICAL [...] C6-C7. Endotracheal and enteric tubes are noted. [facility] [place] Samm, Mhpn Incoming Radiant Results From [employer] - 09/25/2019 4:44 PM EDT EXAMINATION: 2 [...] Status post C3-C5 posterior decompression and fusion. [facility] [place] Arterial Blood Gas, POCon Mino Test NOT REPORTED [facility] [place] aPTT Coag (Bld) [Time] NOT REPORTED [facility] [place] FIO2 30.0 [place] Mode [place] Negative Base Excess, Art NOT REPORTED [place] O2 Device/Flow/% Adult Ventilator [place] Oxygen saturation in Blood 97 % 94 - 98 % [place] POC HCO3 24.7 mmol/L 21 - 28 mmol/L [place] POC pCO2 41.7 [place] POC pCO2 Temp NOT REPORTED mm Hg [place] POC pH 7.381 [place] POC pH Temp NOT REPORTED [place] P[place] PO2 97.7 [place] P[place] pO2 Temp NOT REPORTED mm Hg [place] Positive Base Excess, Art 0 [place] Sample Site Arterial Line [place] TCO2 (calc), Art 26 mmol/L 22 - 29 mmol/L [place] Mino Test NOT REPORTED [place] aPTT Coag (Bld) [Time] NOT REPORTED [place] FIO2 60.0 [place] Mode [place] Negative Base Excess, Art 2 [place] O2 Device/Flow/% Adult Ventilator [place] Oxygen saturation in Blood 100 % High 94 - 98 % [place] POC HCO3 23.7 mmol/L 21 - 28 mmol/L [place] P[place] pCO2 45.3 [place] P[place] pCO2 Temp NOT REPORTED mm Hg [place] POC pH 7.327 Low [place] POC pH Temp NOT REPORTED [place] POC PO2 242.1 [place] POC pO2 Temp NOT REPORTED mm Hg [place] Positive Base Excess, Art NOT REPORTED [place] Sample Site Arterial Line [place] TCO2 (calc), Art 25 mmol/L 22 - 29 mmol/L [place] Basic Metab w/rfx MGon 09-23 (cont.) Normal [facility] Comment on above: Result Comment: Aver age GFR for 60-69 years old: 85 mL/min/1.73sq m Chronic Kidney Disease: <60 mL/min/1.73sq m Kidney failure: <15 mL/min/1.73sq m eGFR calculated using average adult body mass. Additional eGFR calculator available at: http://www.[employer]/multiple_crcl_2012.htm Performed By: #### E RTPF #### [facility] [employer] [address] [place] [address] Liquor Clerk: Tre Ferrell MD GFR, Amer >60 Normal >60 [facility] Comment on above: Performed By: #### E RTPF #### [address] [address] Liquor Clerk: Tre Ferrell MD GFR,non Amer >60 Normal >60 [facility] Comment on above: Performed By: #### E RTPF #### [address] [address] Liquor Clerk: Tre Ferrell MD BUN/CRE Ratio NOT REPORTED Normal 9-20 [facility] Comment on above: Performed By: #### E RTPF #### [address] [address] Liquor Clerk: Tre Ferrell MD Staging: NOT REPORTED Normal [facility] Comment on above: Performed By: #### E RTPF #### [address] [address] Liquor Clerk: Tre Ferrell MD Calcium [Mass/Vol] 8.1 mg/dL Low 8.6-10.4 [facility] [place] Comment on above: Performed By: #### E RTPF #### [facility] [employer] [address] [place] [address] Liquor Clerk: Tre Ferrell MD CO2 [Moles/Vol] 21 mmol/L Normal 20-31 [place] Comment on above: Performed By: #### E RTPF #### [address] [address] Liquor Clerk: Tre Ferrell MD Creatinine [Mass/Vol] 0.64 mg/dL Low 0.70-1.20 [place] Comment on above: Performed By: #### E RTPF #### [address] [address] Liquor Clerk: Tre Ferrell MD Glucose [Mass/Vol] 154 mg/dL High 70-99 [place] Comment on above: Performed By: #### E RTPF #### [address] [address] Liquor Clerk: Tre Ferrell MD Potassium [Moles/Vol] 4.5 mmol/L Normal 3.7-5.3 [place] Comment on above: Performed By: #### E RTPF #### [address] [address] Liquor Clerk: Tre Ferrell MD Sodium [Moles/Vol] 142 mmol/L Normal 135-144 [place] Comment on above: Performed By: #### E RTPF #### [address] [address] Liquor Clerk: Tre Ferrell MD Urea nitrogen [Mass/Vol] 15 mg/dL Normal 8-23 [place] Comment on above: Performed By: #### E RTPF #### [address] [address] Liquor Clerk: Tre Ferrell MD Anion gap [Moles/Vol] 12 mmol/L Normal 9-17 [place] Comment on above: Performed By: #### E RTPF #### [address] [address] Liquor Clerk: Tre Ferrell MD Chloride [Moles/Vol] 109 mmol/L High 98-107 [place] Comment on above: Performed By: #### E RTPF #### [employer] [address] [place], [place] [phone] Liquor Clerk: Tre Ferrell MD Basic Metabolic Panel w/ Ref kylee to MGon 09-24-2019 Bun/Cre Ratio NOT REPORTED [place] GFR >60 >60 mL/min [place], [place] GFR Non- >60 >60 mL/min [place] GFR/1.73 sq M predicted among non-blacks MDRD (S/P/Bld) [Vol rate/Area] [place] Comment on above: Average GFR for 60-6 9 years old: 85 mL/min/1.73sq m Chronic Kidney Disease: <60 mL/min/1.73sq m Kidney failure: <15 mL/min/1.73sq m eGFR calculated using average adult body mass. Additional eGFR calculator available at: http://www.[employer]/multiple_crcl_2012.htm GFR/1.73 sq M predicted among non-blacks MDRD (S/P/Bld) [Vol rate/Area] NOT REPORTED [place] Interpretation and review of laboratory results Abnormal [place] CALCIUM, IONIC (POC)on 09-23 POC Ionized Calcium 1.17 mmol/L 1.15 - 1 .33 mmol/L [place] CBCon 09-24-2019 Erythrocyte distribution width (RBC) [Ratio] 13.1 % Normal 11.8-14.4 [facility] Comment on above: Performed By: #### BRANDY Nunez DAU #### [employer] [address] [place], [place] [phone] Liquor Clerk: Tre Ferrell MD Hematocrit (Bld) [Volume fraction] 37.3 % Low 40.7-50.3 [facility] Comment on above: Performed By: #### BRANDY Nunez DAU #### [address] [address] Liquor Clerk: Tre Ferrell MD Hemoglobin (Bld) [Mass/Vol] 11.8 g/dL Low 13.0-17.0 [facility] Comment on above: Performed By: #### BRANDY Nunez DAU #### [address] [address] Liquor Clerk: Tre Ferrell MD MCH (RBC) [Entitic mass] 28.9 pg Normal 25.2-33.5 [facility] Comment on above: Performed By: #### BRANDY Nunez DAU #### [address] [address] Liquor Clerk: Tre Ferrell MD MCHC (RBC) [Mass/Vol] 31.6 g/dL Normal 28.4-34.8 [facility] Comment on above: Performed By: #### BRANDY Nunez DAU #### [address] [address] Liquor Clerk: Tre Ferrell MD MCV (RBC) [Entitic vol] 91.4 fL Normal 82.6-102.9 [facility] Comment on above: Performed By: #### BRANDY Nunez DAU #### [address] [address] Liquor Clerk: Tre Ferrell MD NRBC Automated 0.0 per 100 WBC Normal 0.0 [facility] Comment on above: Performed By: #### BRANDY Nunez DAU #### [address] [address] Liquor Clerk: Tre Ferrell MD Platelets (Bld) [#/Vol] See Reflexed IPF Result Normal 138-453 [facility] Comment on above: Performed By: #### BRANDY Nunez DAU #### [employer] [address] [place] [address] Liquor Clerk: Tre Ferrell MD RBC (Bld) [#/Vol] 4.08 10*6/uL Low 4.21-5.77 [facility] Comment on above: Performed By: #### BRANDY Nunez DAU #### [employer] [address] [place] [address] Liquor Clerk: Tre Ferrell MD WBC (Bld) [#/Vol] 6.7 10*3/uL Normal 3.5-11.3 [facility] Comment on above: Performed By: #### BRANDY Nunez DAU #### [facility] [address] [place] [address] Liquor Clerk: Tre Ferrell MD Platelet mean volume (Bld) [Entitic vol] NOT REPORTED Normal 8.1-13.5 [facility] Comment on above: Performed By: #### BRANDY Nunez DAU #### [employer] [address] [place] [address] Liquor Clerk: Tre Ferrell MD Erythrocyte distribution width (RBC) [Ratio] 13.1 % 11.8 - 14.4 % [place] Hematocrit (Bld) [Volume fraction] 37.3 % Low 40.7 - 50.3 % [place] Hemoglobin (Bld) [Mass/Vol] 11.8 g/dL Low 13 - 17 g/dL [place] Interpretation and review of laboratory results Abnormal [place] MCH (RBC) [Entitic mass] 28.9 pg 25.2 - 33.5 pg [place] MCHC (RBC) [Mass/Vol] 31.6 g/dL 28.4 - 34.8 g/dL [place] MCV (RBC) [Entitic vol] 91.4 fL 82.6 - 102.9 fL [place] Platelet mean volume (Bld) [Entitic vol] NOT REPORTED 8.1 - 13.5 fL [place] Platelets (Bld) [#/Vol] See Reflexed IPF Result [place] RBC (Bld) [#/Vol] 4.08 10*6/uL Low 4.21 - 5.7 7 m/uL [place] WBC (Bld) [#/Vol] 0.0 10*3/uL 0.0 per 10 0 WBC [place] WBC (Bld) [#/Vol] 6.7 10*3/uL [place] Creatinine W/GFR Point of Ca reon 09-24-2019 Creatinine [Mass/Vol] 1.03 mg/dL 0.51 - 1.19 mg/dL [place] GFR Non- CANNOT BE CALCULATED >60 mL/min [place] GFR/1.73 sq M predicted among non-blacks MDRD (S/P/Bld) [Vol rate/Area] [place] Comment on above: Average GFR for 60-6 9 years old: 85 mL/min/1.73sq m Chronic Kidney Disease: <60 mL/min/1.73sq m Kidney failure: <15 mL/min/1.73sq m eGFR calculated using average adult body mass. Additional eGFR calculator available at: http://www.[employer]/multiple_crcl_2012.htm GFR/1.73 sq M predicted among non-blacks MDRD (S/P/Bld) [Vol rate/Area] CANNOT BE CALCULATED >60 mL/min [place] Hemoglobin and hematocrit, b loodon 09-24-2019 Hematocrit (Bld) [Volume fraction] 37 % Low 41 - 53 % [place] Hemoglobin (Bld) [Mass/Vol] 12.7 g/dL Low 13.5 - 17.5 g/dL [place] Immature Platelet Fractionon 09-24-2019 Interpretation and review of laboratory results Abnormal [place] Platelet, Fluorescence 129 [place] Comment on above: ORDERED BY LAB Platelet, Immature Fraction 4.3 % 1.1 - 10.3 % [place] Comment on above: ORDERED BY LAB Lactic Acidon 09-24-2019 Lactate [Moles/Vol] 1.9 mmol/L Normal 0.7-2.1 [facility] Comment on above: Performed By: #### BRANDY Nunez DAU #### [facility] [address] [place], [place] [phone] Liquor Clerk: Tre Ferrell MD Lactate [Moles/Vol] NOT REPORTED Normal [facility] Comment on above: Performed By: #### BRANDY Nunez DAU #### [facility] [employer] [address] [place] [address] [phone] Liquor Clerk: Tre Ferrell MD Lactic Acid, POCon 0 POC Lactic Acid 0.92 mmol/L 0.56 - 1.39 mmol/L [place] POC Lactic Acid 2.45 mmol/L High 0.56 - 1.39 mmol/L [place] Lactic acid, plasmaon 2019 Lactate [Moles/Vol] NOT REPORTED mmol/L [place] Lactic Acid, Whole Blood 1.9 mmol/L 0.7 - 2.1 mmol/L [place] Otheron 09-24-2019 Interpretation and review of laboratory results Abnormal [place] PLT, Immature Fract.on 09-23 Platelet, Fluoresc. 129 k/uL Low 138-453 [facility] Comment on above: Result Comment: ORDE RED BY LAB Performed By: #### BRANDY Nunez DAU #### [facility] [employer] [address] [place], [place] [phone] Liquor Clerk: Tre Ferrell MD PLT, Immature Fract. 4.3 % Normal 1.1-10.3 [facility] Comment on above: Result Comment: ORDE RED BY LAB Performed By: #### BRANDY Nunez DAU #### [facility] [employer] [address] [place] [address] Liquor Clerk: Tre Ferrell MD POCT Glucoseon 09-24-2019 Glucose [Mass/Vol] 97 mg/dL 74 - 100 mg/dL [place] POTASSIUM (POC)on 09-24-2019 Potassium [Moles/Vol] 3.6 mmol/L 3.5 - 4.5 mmol/L [place] SODIUM (POC)on 09-24-2019 Sodium [Moles/Vol] 145 mmol/L 138 - 146 mmol/L [place] XR CERVICAL SPINE (2-3 VIEWS )on [...] Dameon Ramirez MD 09/24/19 Final result Normal [facility] EXAMINATION: 2 XRAY VIEWS OF THE [...] on these views. Support tubes in place. [place] Intraoperative views of posterior fusion of C3, C4 and C5. [place] Samm, Mhpn Incoming Radiant Results From [facility] - 09/24/2019 7:55 AM EDT EXAMINATION: 2 [...] posterior fusion of C3, C4 and C5. [facility] [place] XR CHEST PORTABLEon 09-24-19 20 XR CHEST [...] Fede Stafford MD 09/24/19 Final result Normal [facility] EXAMINATION: ONE XRAY VIEW OF THE [...] is stable. The osseous structures are stable. [place] S[place], Mhpn Incoming Radiant Results From [facility] - 09/24/2019 2:08 PM EDT EXAMINATION: ONE [...] structures are stable. IMPRESSION: No acute process. [place] No acute process. [place] AMMONIAon 09-23-2019 Ammonia (P) [Mass/Vol] 37 umol/L 16 - 60 umol/L [place] Ammoniaon 09-23-2019 Ammonia (P) [Mass/Vol] 37 umol/L Normal 16-60 [facility] Comment on above: Performed By: #### U BRANDY Nelson DAU #### [facility] [employer] [address] [place] [address] Liquor Clerk: Tre Ferrell MD Arterial Blood Gas, POCon Mino Test NOT REPORTED [place], [place] aPTT Coag (Bld) [Time] NOT REPORTED [place] FIO2 30.0 [place] Mode PRVC [place] Negative Base Excess, Art NOT REPORTED [place] O2 Device/Flow/% Adult Ventilator [place] Oxygen saturation in Blood 94 % 94 - 98 % [place] POC HCO3 27.3 mmol/L 21 - 28 mmol/L [place] POC pCO2 50.8 [place] POC pCO2 Temp NOT REPORTED mm Hg [place] POC pH 7.338 Low [place] POC pH Temp NOT REPORTED [place] POC PO2 76.9 Low [place] POC pO2 Temp NOT REPORTED mm Hg [place] Positive Base Excess, Art 1 [place] Sample Site Arterial Line [place] TCO2 (calc), Art 29 mmol/L 22 - 29 mmol/L [place] Basic Metab w/rfx MGon 09-22 (cont.) Normal [facility] Comment on above: Result Comment: Aver age GFR for 60-69 years old: 85 mL/min/1.73sq m Chronic Kidney Disease: <60 mL/min/1.73sq m Kidney failure: <15 mL/min/1.73sq m eGFR calculated using average adult body mass. Additional eGFR calculator available at: http://www.[employer]com/multiple_crcl_2012.htm Performed By: #### BRANDY Nunez DAU #### [facility] [employer] [address] [place] [address] Liquor Clerk: Tre Ferrell MD Anion gap [Moles/Vol] 11 mmol/L Normal 9-17 [facility] Comment on above: Performed By: #### BRANDY Nunez DAU #### [facility] [address] [place] [address] Liquor Clerk: Tre Ferrell MD Calcium [Mass/Vol] 8.4 mg/dL Low 8.6-10.4 [facility] Comment on above: Performed By: #### BRANDY Nunez DAU #### [facility] [employer] [address] [place] [address] Liquor Clerk: Tre Ferrell MD Chloride [Moles/Vol] 108 mmol/L High 98-107 [facility] Comment on above: Performed By: #### BRANDY Nunez DAU #### [facility] [employer] [address] [place] [address] Liquor Clerk: Tre Ferrell MD CO2 [Moles/Vol] 23 mmol/L Normal 20-31 [facility] Comment on above: Performed By: #### BRANDY Nunez DAU #### [facility] [employer] [address] [place] [address] Liquor Clerk: Tre Ferrell MD Creatinine [Mass/Vol] 0.68 mg/dL Low 0.70-1.20 [facility] Comment on above: Performed By: #### BRANDY Nunez DAU #### [facility] [address] [place] [address] Liquor Clerk: Tre Ferrell MD GFR, Amer >60 Normal >60 [facility] Comment on above: Performed By: #### BRANDY Nunez DAU #### [facility] [employer] [address] [place] [address] Liquor Clerk: Tre Ferrell MD GFR,non Amer >60 Normal >60 [facility] Comment on above: Performed By: #### BRANDY Nunez DAU #### [facility] [employer] [address] [place] [address] Liquor Clerk: Tre Ferrell MD Glucose [Mass/Vol] 85 mg/dL Normal 70-99 [facility] Comment on above: Performed By: #### BRANDY Nunez DAU #### [facility] [employer] [address] [place] [address] Liquor Clerk: Tre Ferrell MD Potassium [Moles/Vol] 3.9 mmol/L Normal 3.7-5.3 [facility] Comment on above: Performed By: #### BRANDY Nunez DAU #### [address] [address] Liquor Clerk: Tre Ferrell MD Sodium [Moles/Vol] 142 mmol/L Normal 135-144 [facility] Comment on above: Performed By: #### BRANDY Nunez DAU #### [facility] [employer] [address] [place] [address] Liquor Clerk: Tre Ferrell MD Urea nitrogen [Mass/Vol] 15 mg/dL Normal 8-23 [facility] Comment on above: Performed By: #### BRANDY Nunez DAU #### [facility] [employer] [address] [place] [address] Liquor Clerk: Tre Ferrell MD BUN/CRE Ratio NOT REPORTED Normal 9-20 [facility] Comment on above: Performed By: #### BRANDY Nunez DAU #### [facility] [address] [place] [address] Liquor Clerk: Tre Ferrell MD Staging: NOT REPORTED Normal [facility] Comment on above: Performed By: #### U BRANDY Nelson DAU #### [facility] [address] [place] [address] Liquor Clerk: Tre Ferrell MD Basic Metabolic Panel w/ Ref kylee to MGon 09-23-2019 Anion gap [Moles/Vol] 11 mmol/L 9 - 17 mmol/L [place] Bun/Cre Ratio NOT REPORTED [place] Calcium [Mass/Vol] 8.4 mg/dL Low 8.6 - 10. 4 mg/dL [place] Chloride [Moles/Vol] 108 mmol/L High 98 - 10 7 mmol/L [place] CO2 [Moles/Vol] 23 mmol/L 20 - 31 mmol/L [place] Creatinine [Mass/Vol] 0.68 mg/dL Low 0.7 - 1.2 mg/dL [place] GFR >60 >60 mL/min [place] GFR Non- >60 >60 mL/min [place] GFR/1.73 sq M predicted among non-blacks MDRD (S/P/Bld) [Vol rate/Area] NOT REPORTED [place] GFR/1.73 sq M predicted among non-blacks MDRD (S/P/Bld) [Vol rate/Area] [place] Comment on above: Average GFR for 60-6 9 years old: 85 mL/min/1.73sq m Chronic Kidney Disease: <60 mL/min/1.73sq m Kidney failure: <15 mL/min/1.73sq m eGFR calculated using average adult body mass. Additional eGFR calculator available at: http://www.[employer]/multiple_crcl_2012.htm Glucose [Mass/Vol] 85 mg/dL 70 - 99 mg/dL [place] Interpretation and review of laboratory results Abnormal [place] Potassium [Moles/Vol] 3.9 mmol/L 3.7 - 5.3 mmol/L [place] Sodium [Moles/Vol] 142 mmol/L 135 - 144 mmol/L [place] Urea nitrogen [Mass/Vol] 15 mg/dL 8 - 23 mg/dL [place] CBC Auto Differentialon 08-27 Basophils (Bld) [#/Vol] 10*3/uL [place] Basophils/100 WBC (Bld) 0 % 0 - 2 % M [place] Differential Type NOT REPORTED [place] Eosinophils (Bld) [#/Vol] 0.08 10*3/uL [place] Eosinophils/100 WBC (Bld) 1 % 1 - 4 % [place] Erythrocyte distribution width (RBC) [Ratio] 13.3 % 11.8 - 14.4 % [place] Hematocrit (Bld) [Volume fraction] 39.0 % Low 40.7 - 50.3 % [place] Hemoglobin (Bld) [Mass/Vol] 12.3 g/dL Low 13 - 17 g/dL [place] Immature granulocytes (Bld) [#/Vol] 10*3/uL [place] Immature granulocytes (Bld) [#/Vol] 0 % 0 [place] Interpretation and review of laboratory results Abnormal [place] Lymphocytes (Bld) [#/Vol] 1.31 10*3/uL [place] Lymphocytes/100 WBC (Bld) 22 % Low 24 - 43 % [place] MCH (RBC) [Entitic mass] 28.8 pg 25.2 - 33.5 pg [place] MCHC (RBC) [Mass/Vol] 31.5 g/dL 28.4 - 34.8 g/dL [place] MCV (RBC) [Entitic vol] 91.3 fL 82.6 - 102.9 fL [place] Monocytes (Bld) [#/Vol] 0.68 10*3/uL [place] Monocytes/100 WBC (Bld) 11 % 3 - 12 % M [place] Platelet mean volume (Bld) [Entitic vol] 9.8 fL 8.1 - 13.5 fL [place] Platelets (Bld) [#/Vol] NOT REPORTED [place] Platelets (Bld) [#/Vol] 197 10*3/uL [place] RBC (Bld) [#/Vol] 4.27 10*6/uL 4.21 - 5.7 7 m/uL [place] RBC morphology finding Nom (Bld) NOT REPORTED [place] Segmented neutrophils/100 WBC (Bld) 65 % 36 - 65 % [place] Segs Absolute 3.88 [place] WBC (Bld) [#/Vol] 6.0 10*3/uL [place] WBC (Bld) [#/Vol] 0.0 10*3/uL 0.0 per 10 0 WBC [place] WBC Morphology NOT REPORTED [place] CBC with Diffon 09-23-2019 Abs. Basophil <0.03 Normal 0.00-0.20 [facility] Comment on above: Performed By: #### BRANDY Nunez DAU #### [facility] [employer] [address] [place] [address] Liquor Clerk: Tre Ferrell MD Abs.Imm.Granulocyte <0.03 Normal 0.00-0.30 [facility] Comment on above: Performed By: #### U BRANDY Nelson DAU #### [facility] [address] [place] [address] Liquor Clerk: Tre Ferrell MD Abs.Neutrophil (Seg) 3.88 k/uL Normal 1.50-8.10 [facility] Comment on above: Performed By: #### U ABRANDY DAU #### [facility] [employer] [address] [place] [address] Liquor Clerk: Tre Ferrell MD Basophils/100 WBC (Bld) 0 % Normal 0-2 [facility] Comment on above: Performed By: #### BRANDY Nunez DAU #### [facility] [employer] [address] [place] [address] Liquor Clerk: Tre Ferrell MD Eosinophils (Bld) [#/Vol] 0.08 10*3/uL Normal 0.00-0.44 [facility] Comment on above: Performed By: #### U BRANDY Nelson MK #### [address] [address] Liquor Clerk: Tre Ferrell MD Eosinophils/100 WBC (Bld) 1 % Normal 1-4 [facility] Comment on above: Performed By: #### BRANDY Nunez DAU #### [address] [address] Liquor Clerk: Tre Ferrell MD Erythrocyte distribution width (RBC) [Ratio] 13.3 % Normal 11.8-14.4 [facility] Comment on above: Performed By: #### BRANDY Nunez DAU #### [facility] [employer] [address] [place] [address] Liquor Clerk: Tre Ferrell MD Hematocrit (Bld) [Volume fraction] 39.0 % Low 40.7-50.3 [facility] Comment on above: Performed By: #### U BRANDY Nelson MK #### [facility] [employer] [address] [place] [address] Liquor Clerk: Tre Ferrell MD Hemoglobin (Bld) [Mass/Vol] 12.3 g/dL Low 13.0-17.0 [facility] Comment on above: Performed By: #### U ABRANDY DAU #### [facility] [employer] [address] [place] [address] Liquor Clerk: Tre Ferrell MD Immature granulocytes (Bld) [#/Vol] 0 % Normal 0 [facility] Comment on above: Performed By: #### BRANDY Nunez DAU #### [address] [address] Liquor Clerk: Tre Ferrell MD Lymphocytes (Bld) [#/Vol] 1.31 10*3/uL Normal 1.10-3.70 [facility] Comment on above: Performed By: #### BRANDY Nunez DAU #### [place] [address] Liquor Clerk: Tre Ferrell MD Lymphocytes/100 WBC (Bld) 22 % Low 24-43 [facility] Comment on above: Performed By: #### BRANDY Nunez DAU #### [place] [address] Liquor Clerk: Tre Ferrell MD MCH (RBC) [Entitic mass] 28.8 pg Normal 25.2-33.5 [facility] Comment on above: Performed By: #### BRANDY Nunez DAU #### [place] [address] Liquor Clerk: Tre Ferrell MD MCHC (RBC) [Mass/Vol] 31.5 g/dL Normal 28.4-34.8 [facility] Comment on above: Performed By: #### BRANDY Nunez MK #### [place] [address] Liquor Clerk: Tre Ferrell MD MCV (RBC) [Entitic vol] 91.3 fL Normal 82.6-102.9 [facility] Comment on above: Performed By: #### BRANDY Nunez DAU #### [place] [address] Liquor Clerk: Tre Ferrell MD Monocytes (Bld) [#/Vol] 0.68 10*3/uL Normal 0.10-1.20 [facility] Comment on above: Performed By: #### U ABRANDY MK #### [address] [address] Liquor Clerk: Tre Ferrell MD Monocytes/100 WBC (Bld) 11 % Normal 3-12 [facility] Comment on above: Performed By: #### U ABRANDY MK #### [address] [address] Liquor Clerk: Tre Ferrell MD Neutrophil (Seg) 65 % Normal 36-65 [facility] Comment on above: Performed By: #### U ABRANDY DAU #### [address] [address] Liquor Clerk: Tre Ferrell MD NRBC Automated 0.0 per 100 WBC Normal 0.0 [facility] Comment on above: Performed By: #### U ABRANDY DAU #### [address] [address] Liquor Clerk: Tre Ferrell MD Platelet mean volume (Bld) [Entitic vol] 9.8 fL Normal 8.1-13.5 [facility] Comment on above: Performed By: #### U ABRANDY MK #### [address] [address] Liquor Clerk: Tre Ferrell MD Platelets (Bld) [#/Vol] 197 10*3/uL Normal 138-453 [facility] Comment on above: Performed By: #### U ABRANDY MK #### [address] [address] Liquor Clerk: Tre Ferrell MD RBC (Bld) [#/Vol] 4.27 10*6/uL Normal 4.21-5.77 [facility] Comment on above: Performed By: #### U BRANDY Nelson MK #### [address] [address] Liquor Clerk: Tre Ferrell MD WBC (Bld) [#/Vol] 6.0 10*3/uL Normal 3.5-11.3 [facility] Comment on above: Performed By: #### U BRANDY Nelson MK #### [address] [address] Liquor Clerk: Tre Ferrell MD Auto Diff Performed NOT REPORTED Normal [facility] Comment on above: Performed By: #### BRANDY Nunez DAU #### [address] [address] Liquor Clerk: Tre Ferrell MD Platelets (Bld) [#/Vol] NOT REPORTED Normal [facility] Comment on above: Performed By: #### U BRANDY Nelson MK #### [address] [address] Liquor Clerk: Tre Ferrell MD RBC morphology finding Nom (Bld) NOT REPORTED Normal [facility] Comment on above: Performed By: #### U ABRANDY MK #### [facility] [employer] [address] [place] [address] Liquor Clerk: Tre Ferrell MD WBC Morphology NOT REPORTED Normal [facility] Comment on above: Performed By: #### U ABRANDY, MK #### [address] [address] Liquor Clerk: Tre Ferrell MD COVID-19on 09-23-2019 SARS-CoV-2 [place] SARS-CoV-2, PCR [facility] [place] SARS-CoV-2, Rapid Not Detected Not Detected [place], [place] Comment on above: Rapid NAAT: The [...] management decisions. Fact sheet for Healthcare Providers: https://www.fda.gov/media/894845/download Fact sheet for Patients: https://www.fda.gov/media/299039/download Methodology: Isothermal Nucleic Acid Amplification Source .NASOPHARYNGEAL SWAB [place] CT CERVICAL SPINE WO CONTRAS Ton [...] Gianni Panda MD 09/23/19 Final result Normal [facility] CT CHEST ABDOMEN PELVIS W CO [...] Fede Cobb MD 09/23/19 Final result Normal [facility] CT Cervical Spine WO Mihir ton 09-23-2019 EXAMINATION: CT OF THE CERVICAL SPINE [...] swelling. There are endotracheal and OG tubes. [facility] [place], [place] Samm, Mhpn Incoming Radiant Results From [employer] - 09/23/2019 2:13 AM EDT EXAMINATION: CT [...] canal with multilevel disc protrusions as above. [place], [place] No acute abnormality of the cervical spine. 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 [place] CT FACIAL BONES WO CONTRASTo n [...] Fede Cobb MD 09/23/19 Final result Normal [facility] CT HEAD WO CONTRASTon 2019 CT [...] Fede Cobb MD 09/23/19 Final result Normal [facility] CT LUMBAR SPINE WO CONTRASTo n [...] Fede Cobb MD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 [facility] [employer] [address] [place] [address] Liquor Clerk: Tre Ferrell MD Leukocyte esterase Test strip Ql (U) Negative Normal NEG [facility] Comment on above: Performed By: #### U A, UMICAO, MK #### [facility] [employer] [address] [place] [address] Liquor Clerk: Tre Ferrell MD Nitrite,Ur Negative Normal NEG [facility] Comment on above: Performed By: #### U A, UMICAO, MK #### [facility] [address] [place] [address] Liquor Clerk: Tre Ferrell MD pH (U) 6.0 [pH] Normal 5.0-8.0 [facility] Comment on above: Performed By: #### U A, UMICAO, MK #### [facility] [address] [place] [address] Liquor Clerk: Tre Ferrell MD Protein Ql (U) 1+ Abnormal NEG [facility] Comment on above: Performed By: #### U A, UMICAO, MK #### [facility] [address] [place] [address] Liquor Clerk: Tre Frerell MD Specific gravity (U) [Rel density] 1.021 Normal 1.005-1.030 [facility] Comment on above: Performed By: #### U A, UMICAO, MK #### [facility] [employer] [address] [place] [address] Liquor Clerk: Tre Ferrell MD Turbidity CLEAR Normal CLEAR [facility] Comment on above: Performed By: #### U A, UMICAO, MK #### [facility] [employer] [address] [place] [address] Liquor Clerk: Tre Ferrell MD Urobilinogen,Ur Normal Normal NORM [facility] Comment on above: Performed By: #### U A, UMICAO, MK #### [facility] [employer] [address] [place] [address] Liquor Clerk: Tre Ferrell MD Comment NOT REPORTED Normal [facility] Comment on above: Performed By: #### U A, UMICAO, MK #### [facility] [employer] [address] [place] [address] Liquor Clerk: Tre Ferrell MD Urinalysis,Microon 0 ----- Normal [facility] Comment on above: Performed By: #### U A, UMICAO, MK #### [facility] [employer] [address] [place] [address] Liquor Clerk: Tre Ferrell MD Casts LM.LPF (Urine sed) [#/Area] 2 TO 5 HYALINE Normal 0-8 [facility] Comment on above: Result Comment: Refe rence range defined for non-centrifuged specimen. Performed By: #### U A, UMICAO, MK #### [facility] [address] [place] [address] Liquor Clerk: Tre Ferrell MD Epithelial cells LM.HPF (Urine sed) [#/Area] 0 TO 2 Normal 0-5 [facility] Comment on above: Performed By: #### U A, UMMEGANO, MK #### [facility] [address] [place] [address] Liquor Clerk: Tre Ferrell MD RBC (U) [#/Vol] 2 TO 5 Normal 0-4 [facility] Comment on above: Result Comment: Refe rence range defined for non-centrifuged specimen. Performed By: #### U A, UMICAO, MK #### [facility] [address] [place] [address] Liquor Clerk: Tre Ferrell MD WBC (U) [#/Vol] 2 TO 5 Normal 0-5 [facility] Comment on above: Performed By: #### U A, UMICAO, MK #### [facility] [address] [place] [address] Liquor Clerk: Tre Ferrell MD Amorphous sediment LM Ql (Urine sed) NOT REPORTED Normal NONE [facility] Comment on above: Performed By: #### U A, UMICAO, MK #### [facility] [address] [place] [address] Liquor Clerk: Tre Ferrell MD Bacteria LM.HPF (Urine sed) [#/Area] NOT REPORTED Normal NONE [facility] Comment on above: Performed By: #### U A, UMICAO, MK #### [facility] [address] [place], [place] [address], [place] [address] Liquor Clerk: Tre Ferrell MD Crystals LM Nom (Urine sed) NOT REPORTED Normal NONE [facility] Comment on above: Performed By: #### U A, UMICAO, MK #### [address] [address] Liquor Clerk: Tre Ferrell MD Epithelial, Renal NOT REPORTED Normal 0 [facility] Comment on above: Performed By: #### U A, UMICAO, MK #### [address] [address] Liquor Clerk: Tre Ferrell MD Mucus Strands NOT REPORTED Normal [facility] Comment on above: Performed By: #### U A, UMISATU, MK #### [address] [address] Liquor Clerk: Tre Ferrell MD Other Observations NOT REPORTED Normal NREQ [facility] Comment on above: Performed By: #### U A, UMISATU, MK #### [address] [address] Liquor Clerk: Tre Ferrell MD Trichomonas NOT REPORTED Normal NONE [facility] Comment on above: Performed By: #### U A, UMMEGANO, MK #### [address] [address] Liquor Clerk: Tre Ferrell MD Yeast LM Ql (Urine sed) NOT REPORTED Normal [facility] Comment on above: Performed By: #### U A, UMMEGANO, MK #### [address] [address] Liquor Clerk: Tre Ferrell MD Urine Drug Screenon 09-23-19 20 Amphetamine Screen, Ur Negative NEGATIVE [facility] [place], [place] Comment on above: (Positive cutoff 1000 ng/mL) Barbiturate Screen, Ur Negative NEGATIVE [place] Comment on above: (Positive cutoff 200 ng/mL) Benzodiazepine Screen, Urine Negative NEGATIVE [place] Comment on above: (Positive cutoff 200 ng/mL) Buprenorphine Urine NOT REPORTED NEGATIVE [place] Cannabinoid Scrn, Ur Positive Abnormal NEGATIVE [place] Comment on above: (Positive cutoff 50 ng/mL) Cocaine Metabolite, Urine Negative NEGATIVE [place] Comment on above: (Positive cutoff 300 ng/mL) Interpretation and review of laboratory results Abnormal [place] MDMA, Urine NOT REPORTED NEGATIVE [place], [place] Methadone Screen, Urine Negative NEGATIVE [place] Comment on above: (Positive cutoff 300 ng/mL) Methamphetamine, Urine NOT REPORTED NEGATIVE [place] Opiates, Urine Negative NEGATIVE [place] Comment on above: (Positive cutoff 300 ng/mL) Oxycodone Screen, Ur Negative NEGATIVE [place] Comment on above: (Positive cutoff 100 ng/mL) Phencyclidine, Urine Negative NEGATIVE [place] Comment on above: (Positive cutoff 25 ng/mL) Propoxyphene, Urine NOT REPORTED NEGATIVE [place] Test Information Assay provides medical screening only. The absence of expected drug(s) and/or metabolite(s) may indicate diluted or adulterated urine, limitations of testing or timing of collection. [place] Comment on above: Testing for legal pu rposes should be confirmed by another method. To request confirmation of test result, please call the lab within 7 days of sample submission. Tricyclic Antidepressants, Urine NOT REPORTED NEGATIVE [place], [place] XR CHEST PORTABLEon 09-23-19 20 XR [...] Ghassan Sharpe MD 09/23/19 Final result Normal [facility] EXAMINATION: ONE XRAY VIEW OF THE [...] pleural effusions. Visualized osseous structures remain unchanged. [facility] [place], [place] [employer]amm, [employer] Incoming Radiant Results From [facility] - 09/23/2019 10:40 AM EDT EXAMINATION: ONE [...] 09/23/2019to be communicated to a licensed caregiver. [place] 1. Bandlike atelectasis and scarring at [...] 09/23/2019to be communicated to a licensed caregiver. [place] XR CHEST PORTABLE EXAMINATION: ONE XRAY VIEW OF THE CHEST 09/23/2019 1:20 am COMPARISON: None. HISTORY: ORDERING SYSTEM PROVIDED HISTORY: [facility] TECHNOLOGIST PROVIDED HISTORY: [facility] FINDINGS: And oral gastric tube extends to [...] Gianni Panda MD 09/23/19 Final result Normal [facility] Cholesterol in LDL [Mass/Vol] Mild left basilar atelectasis. Lungs are otherwise clear. OG tube courses to the stomach. The tip was not visualized. Endotracheal tube is borderline high in position as above. [place] EXAMINATION: ONE XRAY VIEW OF THE CHEST 09/23/2019 1:20 am COMPARISON: None. HISTORY: ORDERING SYSTEM PROVIDED HISTORY: [facility] TECHNOLOGIST PROVIDED HISTORY: [facility] FINDINGS: And oral gastric tube extends to the stomach. Endotracheal tube tip is at the superior margin of the clavicles approximately 8 cm above the carlyn. Heart size and configuration are normal. There is mild left basilar atelectasis. Lungs are otherwise clear. No pneumothorax or pleural fluid. No acute bone finding. [place] [employer], [employer] Incoming Radiant Results From [facility] - 09/23/2019 2:30 AM EDT EXAMINATION: ONE [...] is borderline high in position as above. [place] Vital Signs Date Time Vital Sign Value Performing Clinician Facility 09-18-2024 13:22-0400 Body height 177.8 cm [employer] SCIENTIFIC DIRECTOR-C Work Phone: [facility] 09-18-2024 13:22-0400 Body mass index (BMI) [Ratio] 21.5 kg/m2 [employer] SCIENTIFIC DIRECTOR-C Work Phone: [facility] 09-18-2024 13:22-0400 Body weight 68.03 kg [employer] SCIENTIFIC DIRECTOR-C Work Phone: [facility] 09-18-2024 13:00-0400 Body temperature 98.8 [degF] [employer] SCIENTIFIC DIRECTOR-C Work Phone: [facility] 09-18-2024 13:00-0400 Diastolic blood pressure 76 mm[Hg] [employer] SCIENTIFIC DIRECTOR-C Work Phone: [facility] 09-18-2024 13:00-0400 Heart rate 87 /min Lavonne Deja SCIENTIFIC DIRECTOR-C Work Phone: [facility] 09-18-2024 13:00-0400 Respiratory rate 18 /min Lavonne Deja SCIENTIFIC DIRECTOR-C Work Phone: [facility] 09-18-2024 13:00-0400 Systolic blood pressure 108 mm[Hg] Lavonne Deja SCIENTIFIC DIRECTOR-C Work Phone: [facility] 05-22-2024 11:08-0500 Body temperature 98.24 [degF] PAT ANNALISA [facility] 05-22-2024 11:08-0500 Diastolic blood pressure 98 mm[Hg] PAT ANNALISA [facility] 05-22-2024 11:08-0500 Heart rate 88 /min PAT ANNALISA [facility] 05-22-2024 11:08-0500 Respiratory rate 18 /min PAT ANNALISA [facility] 05-22-2024 11:08-0500 Systolic blood pressure 138 mm[Hg] PAT ANNALISA [facility] 05-08-2024 11:26-0500 Body height 177.8 cm Ana Foley DO Work Phone: [facility] 05-08-2024 11:26-0500 Body mass index (BMI) [Ratio] 22.9 kg/m2 Ana Foley DO Work Phone: [facility] 05-08-2024 11:26-0500 Body weight 72.57 kg Ana Foley DO Work Phone: [phone] [place] [address] 05-08-2024 11:08-0500 Body temperature 97.9 [degF] Ana Foley DO Work Phone: [facility] 05-08-2024 11:08-0500 Diastolic blood pressure 80 mm[Hg] Ana Foley DO Work Phone: [facility] 05-08-2024 11:08-0500 Heart rate 79 /min Ana Foley DO Work Phone: [facility] 05-08-2024 11:08-0500 Respiratory rate 16 /min Ana Foley DO Work Phone: [facility] 05-08-2024 11:08-0500 Systolic blood pressure 135 mm[Hg] Ana Foley DO Work Phone: [facility] 12-02-2023 18:22-0400 Diastolic blood pressure 88 mm[Hg] DO Ana Foley Work Phone: [facility] 12-02-2023 18:22-0400 Heart rate 80 /min DO Ana Foley Work Phone: [facility] 12-02-2023 18:22-0400 Respiratory rate 16 /min DO Ana Foley Work Phone: [facility] 12-02-2023 18:22-0400 SaO2% (BldA) [Mass fraction] 98 % DO Ana Foley Work Phone: [facility] 12-02-2023 18:22-0400 Systolic blood pressure 134 mm[Hg] DO Ana Foley Work Phone: [facility] 12-02-2023 17:52-0400 Inhaled oxygen flow rate 8 L/min DO Ana Foley Work Phone: [facility] 12-02-2023 14:33-0400 Body height 180.34 cm DO Ana Foley Work Phone: [facility] 12-02-2023 14:33-0400 Body temperature 97.9 [degF] DO Ana Foley Work Phone: [facility] 12-02-2023 14:33-0400 Body weight 74.84 kg DO Ana Foley Work Phone: [facility] 11-22-2023 09:22-0400 Body height 177.8 cm DO Ana Foley Work Phone: [facility] 11-22-2023 09:22-0400 Body mass index (BMI) [Ratio] 22.9 kg/m2 DO Ana Foley Work Phone: [facility] 11-22-2023 09:22-0400 Body weight 72.57 kg DO Ana Foley Work Phone: [facility] 11-22-2023 08:12-0400 Body temperature 98.4 [degF] DO Ana Foley Work Phone: [facility] 11-22-2023 08:12-0400 Diastolic blood pressure 66 mm[Hg] DO Ana Foley Work Phone: [facility] 11-22-2023 08:12-0400 Heart rate 80 /min DO Ana Foley Work Phone: [facility] 11-22-2023 08:12-0400 Respiratory rate 18 /min DO Ana Foley Work Phone: [facility] 11-22-2023 08:12-0400 Systolic blood pressure 118 mm[Hg] DO Ana Foley Work Phone: [facility] 07-23-2023 00:59-0400 Diastolic blood pressure 62 mm[Hg] DO Ana Foley Work Phone: [facility] 07-23-2023 00:59-0400 Systolic blood pressure 101 mm[Hg] DO Ana Foley Work Phone: [facility] 07-23-2023 00:53-0400 Heart rate 65 /min DO Ana Foley Work Phone: [facility] 07-23-2023 00:53-0400 Respiratory rate 16 /min DO Ana Vicenta Work Phone: [facility] 07-23-2023 00:53-0400 SaO2% (BldA) [Mass fraction] 96 % DO Ana Vicenta Work Phone: [facility] 07-22-2023 20:52-0400 Body temperature 97.8 [degF] DO Ana Vicenta Work Phone: [facility] 07-22-2023 18:39-0400 Body height 177.8 cm DO Ana Vicenta Work Phone: [facility] 07-22-2023 18:39-0400 Body weight 72.57 kg DO Ana Vicenta Work Phone: [facility] 07-14-2023 10:00-0400 Body height 177.8 cm DO Ana Vicenta Work Phone: [facility] 07-14-2023 10:00-0400 Body mass index (BMI) [Ratio] 22.9 kg/m2 DO Ana Vicenta Work Phone: [facility] 07-14-2023 10:00-0400 Body weight 72.57 kg DO Ana Vicenta Work Phone: [facility] 07-14-2023 09:50-0400 Body temperature 98.2 [degF] DO Ana Vicenta Work Phone: [facility] 07-14-2023 09:50-0400 Diastolic blood pressure 88 mm[Hg] DO Ana Foley Work Phone: [facility] 07-14-2023 09:50-0400 Heart rate 72 /min DO Ana Foley Work Phone: [facility] 07-14-2023 09:50-0400 Respiratory rate 18 /min DO Ana Foley Work Phone: [facility] 07-14-2023 09:50-0400 Systolic blood pressure 129 mm[Hg] DO Ana Foley Work Phone: [facility] 05-04-2023 09:15-0500 Body height 177.8 cm Ana Foley Other [employer] [facility] [employer] Other 05-04-2023 09:15-0500 Diastolic blood pressure 72 mm[Hg] Ana Foley Other [employer] Other 05-04-2023 09:15-0500 Respiratory rate 18 /min Ana Foley Other [employer] Other 05-04-2023 09:15-0500 SaO2% (BldA) [Mass fraction] 99 % Ana Foley Other [employer] Other 05-04-2023 09:15-0500 Systolic blood pressure 120 mm[Hg] Ana Foley Other [employer] Other 04-22-2023 20:33-0500 Diastolic blood pressure 78 mm[Hg] DO Ana Foley Work Phone: [facility] 04-22-2023 20:33-0500 Heart rate 69 /min DO Ana Foley Work Phone: [facility] 04-22-2023 20:33-0500 Respiratory rate 20 /min DO Ana Foley Work Phone: [facility] 04-22-2023 20:33-0500 SaO2% (BldA) [Mass fraction] 98 % DO Ana Foley Work Phone: [facility] 04-22-2023 20:33-0500 Systolic blood pressure 128 mm[Hg] DO Ana Foley Work Phone: [facility] 04-22-2023 16:37-0500 Body height 177.8 cm DO Ana Foley Work Phone: [facility] 04-22-2023 16:37-0500 Body weight 70 kg DO Ana Foley Work Phone: [facility] 04-22-2023 16:32-0500 Body temperature 97.4 [degF] DO Ana Foley Work Phone: [facility] 04-19-2023 15:17-0500 Body temperature 97.9 [degF] DO Ana Foley Work Phone: [facility] 04-19-2023 15:17-0500 Diastolic blood pressure 66 mm[Hg] DO Ana Foley Work Phone: [facility] 04-19-2023 15:17-0500 Heart rate 75 /min DO Ana Foley Work Phone: [facility] 04-19-2023 15:17-0500 Respiratory rate 18 /min DO Ana Foley Work Phone: [facility] 04-19-2023 15:17-0500 SaO2% (BldA) [Mass fraction] 99 % DO Ana Foley Work Phone: [facility] 04-19-2023 15:17-0500 Systolic blood pressure 101 mm[Hg] DO Ana Foley Work Phone: [facility] 04-18-2023 11:40-0500 Inhaled oxygen flow rate 4 L/min DO Ana Foley Work Phone: [facility] 04-17-2023 06:00-0500 Body weight 61.5 kg DO Ana Foley Work Phone: [facility] 04-15-2023 15:51-0500 Body height 175.26 cm DO Ana Foley Work Phone: [facility] 04-04-2023 09:09-0500 Body height 177.8 cm DO Ana Foley Work Phone: [facility] 04-04-2023 09:09-0500 Body mass index (BMI) [Ratio] 22.9 kg/m2 DO Ana Foley Work Phone: [facility] 04-04-2023 09:09-0500 Body weight 72.57 kg DO Ana Foley Work Phone: [facility] 04-04-2023 08:22-0500 Body temperature 97.7 [degF] DO Ana Foley Work Phone: [facility] 04-04-2023 08:22-0500 Diastolic blood pressure 77 mm[Hg] DO Ana Foley Work Phone: [facility] 04-04-2023 08:22-0500 Heart rate 101 /min DO Ana Foley Work Phone: [facility] 04-04-2023 08:22-0500 Respiratory rate 20 /min DO Ana Foley Work Phone: [facility] 04-04-2023 08:22-0500 Systolic blood pressure 108 mm[Hg] DO Ana Foley Work Phone: [facility] 03-22-2023 16:00-0500 Body temperature 97.8 [degF] DO Ana Foley Work Phone: [facility] 03-22-2023 16:00-0500 Diastolic blood pressure 90 mm[Hg] DO Ana Foley Work Phone: [facility] 03-22-2023 16:00-0500 Heart rate 84 /min DO Ana Foley Work Phone: [facility] 03-22-2023 16:00-0500 Respiratory rate 18 /min DO Ana Foley Work Phone: [facility] 03-22-2023 16:00-0500 SaO2% (BldA) [Mass fraction] 99 % DO Ana Foley Work Phone: [facility] 03-22-2023 16:00-0500 Systolic blood pressure 146 mm[Hg] DO Ana Foley Work Phone: [facility] 03-22-2023 04:41-0500 Body weight 69.2 kg DO Ana Foley Work Phone: [facility] 03-18-2023 13:12-0500 Body height 175.26 cm DO Ana Foley Work Phone: [facility] 03-14-2023 14:19-0500 Heart rate 98 /min DO Ana Foley Work Phone: [facility] 03-14-2023 14:19-0500 Respiratory rate 18 /min DO Ana Foley Work Phone: [facility] 03-14-2023 14:19-0500 SaO2% (BldA) [Mass fraction] 100 % DO Ana Foley Work Phone: [facility] 03-14-2023 13:18-0500 Body height 175.26 cm DO Ana Foley Work Phone: [facility] 03-14-2023 13:18-0500 Body temperature 97.4 [degF] DO Ana Foley Work Phone: [facility] 03-14-2023 13:18-0500 Body weight 73.02 kg DO Ana Foley Work Phone: [facility] 03-14-2023 13:18-0500 Diastolic blood pressure 83 mm[Hg] DO Ana Foley Work Phone: [facility] 03-14-2023 13:18-0500 Systolic blood pressure 122 mm[Hg] DO Ana Foley Work Phone: [facility] 02-25-2023 10:00-0500 Body height 177.8 cm Ana Foley Other [employer] [facility] [employer] Other 02-25-2023 10:00-0500 Diastolic blood pressure 80 mm[Hg] Ana Foley Other [employer] Other 02-25-2023 10:00-0500 Respiratory rate 18 /min Ana Foley Other [employer] Other 02-25-2023 10:00-0500 SaO2% (BldA) [Mass fraction] 99 % Ana Foley Other [employer] Other 02-25-2023 10:00-0500 Systolic blood pressure 140 mm[Hg] Ana Foley Other [employer] Other 02-14-2023 18:00-0500 Diastolic blood pressure 52 mm[Hg] DO Ana Foley Work Phone: [facility] 02-14-2023 18:00-0500 Heart rate 93 /min DO Ana Foley Work Phone: [facility] 02-14-2023 18:00-0500 Respiratory rate 18 /min DO Ana Foley Work Phone: [facility] 02-14-2023 18:00-0500 SaO2% (BldA) [Mass fraction] 97 % DO Ana Foley Work Phone: [facility] 02-14-2023 18:00-0500 Systolic blood pressure 105 mm[Hg] DO Ana Foley Work Phone: [facility] 02-14-2023 14:31-0500 Body temperature 97.1 [degF] DO Ana Foley Work Phone: [facility] 02-06-2023 11:31-0500 Diastolic blood pressure 82 mm[Hg] DO Ana Foley Work Phone: [facility] 02-06-2023 11:31-0500 Heart rate 80 /min DO Ana Foley Work Phone: [facility] 02-06-2023 11:31-0500 Respiratory rate 18 /min DO Ana Foley Work Phone: [facility] 02-06-2023 11:31-0500 SaO2% (BldA) [Mass fraction] 100 % DO Ana Foley Work Phone: [facility] 02-06-2023 11:31-0500 Systolic blood pressure 128 mm[Hg] DO Ana Foley Work Phone: [facility] 02-06-2023 08:00-0500 Body temperature 98.1 [degF] DO Ana Foley Work Phone: [facility] 02-06-2023 06:00-0500 Body weight 72.6 kg DO Ana Foley Work Phone: [facility] 02-04-2023 12:53-0500 Body height 180.34 cm DO Ana Foley Work Phone: [facility] 02-04-2023 00:02-0500 Diastolic blood pressure 66 mm[Hg] DO Ana Foley Work Phone: [facility] 02-04-2023 00:02-0500 Heart rate 75 /min DO Ana Foley Work Phone: [facility] 02-04-2023 00:02-0500 Respiratory rate 16 /min DO Ana Foley Work Phone: [facility] 02-04-2023 00:02-0500 SaO2% (BldA) [Mass fraction] 99 % DO Ana Foley Work Phone: [facility] 02-04-2023 00:02-0500 Systolic blood pressure 103 mm[Hg] DO Ana Foley Work Phone: [facility] 02-03-2023 19:08-0500 Body height 180.34 cm DO Ana Foley Work Phone: [facility] 02-03-2023 19:08-0500 Body temperature 97.5 [degF] DO Ana Foley Work Phone: [facility] 02-03-2023 19:08-0500 Body weight 76.2 kg DO Ana Vicenta Work Phone: [facility] 01-31-2023 08:29-0500 Body height 180.34 cm DO Ana Vicenta Work Phone: [facility] 01-31-2023 08:29-0500 Body mass index (BMI) [Ratio] 23.7 kg/m2 DO Ana Foley Work Phone: [facility] 01-31-2023 08:29-0500 Body weight 77.11 kg DO Ana Foley Work Phone: [facility] 01-31-2023 08:10-0500 Body temperature 98.6 [degF] DO Ana Foley Work Phone: [facility] 01-31-2023 08:10-0500 Diastolic blood pressure 87 mm[Hg] DO Ana Foley Work Phone: [facility] 01-31-2023 08:10-0500 Heart rate 96 /min DO Ana Foley Work Phone: [facility] 01-31-2023 08:10-0500 Respiratory rate 20 /min DO Ana Foley Work Phone: [facility] 01-31-2023 08:10-0500 Systolic blood pressure 136 mm[Hg] DO Ana Foley Work Phone: [facility] 12-16-2022 16:00-0400 Diastolic blood pressure 82 mm[Hg] Thalia O'Gianni PA-C Work Phone: [facility] 12-16-2022 16:00-0400 Heart rate 84 /min Thalia O'Gianni PA-C Work Phone: [facility] 12-16-2022 16:00-0400 Systolic blood pressure 117 mm[Hg] Thalia O'Gianni PA-C Work Phone: [facility] 12-07-2022 14:20-0400 Diastolic blood pressure 78 mm[Hg] DO Ana Foley Work Phone: [facility] 12-07-2022 14:20-0400 Heart rate 82 /min DO Ana Foley Work Phone: [facility] 12-07-2022 14:20-0400 Respiratory rate 18 /min DO Ana Foley Work Phone: [facility] 12-07-2022 14:20-0400 SaO2% (BldA) [Mass fraction] 97 % DO Ana Foley Work Phone: [facility] 12-07-2022 14:20-0400 Systolic blood pressure 127 mm[Hg] DO Ana Foley Work Phone: [facility] 12-07-2022 11:12-0400 Body height 177.8 cm DO Ana Foley Work Phone: [facility] 12-07-2022 11:12-0400 Body weight 70.76 kg DO Ana Foley Work Phone: [facility] 11-22-2022 09:13-0400 Body height 177.8 cm DO Ana Foley Work Phone: [facility] 11-22-2022 09:13-0400 Body mass index (BMI) [Ratio] 21.7 kg/m2 DO Ana Foley Work Phone: [facility] 11-22-2022 09:13-0400 Body weight 68.49 kg DO Ana Foley Work Phone: [facility] 11-22-2022 09:04-0400 Diastolic blood pressure 85 mm[Hg] DO Ana Foley Work Phone: [facility] 11-22-2022 09:04-0400 Heart rate 90 /min DO Ana Foley Work Phone: [facility] 11-22-2022 09:04-0400 Respiratory rate 18 /min DO Ana Foley Work Phone: [facility] 11-22-2022 09:04-0400 Systolic blood pressure 119 mm[Hg] DO Ana Foley Work Phone: [facility] 11-10-2022 08:00-0400 Body height 177.8 cm Ana Foley Other [employer] [facility] [employer] Other 11-10-2022 08:00-0400 Diastolic blood pressure 80 mm[Hg] Ana Foley Other [employer] [facility] [employer] Other 11-10-2022 08:00-0400 Respiratory rate 18 /min Anaomar Foley Other [employer] Other 11-10-2022 08:00-0400 SaO2% (BldA) [Mass fraction] 99 % Ana Vicenta Other [employer] Other 11-10-2022 08:00-0400 Systolic blood pressure 116 mm[Hg] Anaomar Foley Other [employer] Other 10-25-2022 08:26-0400 Body temperature 97.4 [degF] DO Ana Foley Work Phone: [facility] 09-20-2022 02:25-0400 SaO2% (BldA) [Mass fraction] 99 % ANA FOLEY [facility] Comment on above: Order Comment: Specimen Type: ARTERIAL B LOOD SPECIMENOrdering Facility: [facility] Address: [address] [place], [place] [id number] Performed By: #### A LLBG ####[facility] [id number] [address] 09-19-2022 15:18-0400 SaO2% (BldA) [Mass fraction] 99 % ANA FOLEY [facility] Comment on above: Order Comment: Specimen Type: ARTERIAL B LOOD SPECIMENOrdering Facility: [facility] Address: [address] [place], [place] [id number] Performed By: #### A LLBG ####[facility] [id number] [address] 09-19-2022 11:14-0400 SaO2% (BldA) [Mass fraction] 99 % ANA FOLEY [facility] Comment on above: Order Comment: Specimen Type: ARTERIAL B LOOD SPECIMENOrdering Facility: [facility] Address: [address] [place], [place] [id number] Performed By: #### A LLBG ####[facility] LABCLIA [id number] [place] [id number] [facility] 09-19-2022 07:00-0400 SaO2% (BldA) [Mass fraction] 99 % ANA FOLEY [facility] Comment on above: Order Comment: Specimen Type: ARTERIAL B LOOD SPECIMENOrdering Facility: [facility] Address: [address] [place], [place] [id number] Performed By: #### A LLBG ####[facility] LABCLIA [id number] [address] 09-19-2022 05:25-0400 SaO2% (BldA) [Mass fraction] 96 % ANA FOLEY [facility] Comment on above: Order Comment: Specimen Type: ARTERIAL B LOOD SPECIMENOrdering Facility: [facility] Address: [address] [place] [address] Performed By: #### A LLBG ####[facility] LABCLIA [id number] [address] [facility] 01-01-2022 12:30-0400 Body height 177.8 cm Ana Foley Other [employer] Other 01-01-2022 12:30-0400 Diastolic blood pressure 72 mm[Hg] Ana Foley Other [employer] Other 01-01-2022 12:30-0400 Respiratory rate 18 /min Ana Foley Other [employer] Other 01-01-2022 12:30-0400 SaO2% (BldA) [Mass fraction] 98 % Ana Foley Other [employer] Other 01-01-2022 12:30-0400 Systolic blood pressure 120 mm[Hg] Ana Foley Other [employer] Other 10-09-2019 08:05-0400 Body Temperature 97.9 [degF] Fercho Torre [facility] [place] 10-09-2019 08:05-0400 BP Diastolic 69 mm[Hg] Fercho Torre [facility] [place] [facility] [place] 10-09-2019 08:05-0400 BP Systolic 100 mm[Hg] Fercho Torre [facility] [place] [facility] [place] 10-09-2019 08:05-0400 Pulse (Heart Rate) 64 /min Fercho Torre [facility] [place] 10-09-2019 08:05-0400 Pulse Oximetry 97 % Fercho Torre [facility] [place] [facility] [place] 10-09-2019 08:05-0400 Respiratory Rate 12 /min Fercho Torre [facility] [place] 10-08-2019 13:58-0400 Height 180.3 cm Fercho Torre [facility] [place] [facility] [place] 09-27-2019 06:00-0400 BMI (Body Mass Index) 23.79 kg/m2 [facility] [place] 09-27-2019 06:00-0400 Body weight 77.38 kg Fercho Torre [facility] [place] [facility] [place] 09-23-2019 03:18-0400 Respiratory rate NOT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 Gianni Maldonado Piedra Work Phone: Start: 09-23-2019 Radiologic exam ches t single view Gianni Maldonado Piedra Work Phone: Start: 09-23-2019 INITIATE OXYGEN THER APY PROTOCOL ERIN OZIEL Start: 09-23-2019 Blood gases any comb ination ph pco2 po2 co2 hco3 ERIN OZIEL Start: 09-23-2019 ANION GAP (CALC) POC SERGIO LUDWIG Start: 09-23-2019 ARTERIAL BLOOD GAS, POC ERIN OZIEL Start: 09-23-2019 Blood count hemoglobin ERIN OZIEL Start: 09-23-2019 Calcium ionized ERIN Nguyen ZARINA Start: 09-23-2019 Chloride other source A KERMIT LUDWIG Start: 09-23-2019 CREATININE W/GFR POI NT OF CARE ERIN OZIEL Start: 09-23-2019 Gluc bld gluc mntr d ev cleared fda spec home use ERIN OZIEL Start: 09-23-2019 LACTIC ACID,POINT OF CARE ERIN [...] PLACE INTERMITTENT P NEUMATIC COMPRESSION DEVICE ERIN OZIEL Start: 09-23-2019 PT EVAL AND TREAT ERIN LUDWIG Start: 09-23-2019 REASON FOR NO CHEMIC AL VTE PROPHYLAXIS ERIN OZIEL Start: 09-23-2019 FROG CATCHER EVAL AND TREAT MAXWELL LUDWIG Start: 09-23-2019 [...] 09-23-2019 ANION GAP (CALC) POC Sergio sims Elaine Ludwig Work Phone: Start: 09-23-2019 ARTERIAL BLOOD GAS, POC Erin Avila Oziel Work Phone: Start: 09-23-2019 Blood count hemoglobin Erin Elaine Ludwig Work Phone: Start: 09-23-2019 CALCIUM, IONIC (POC) Sergio Ludwig Work Phone: Start: 09-23-2019 Chloride [Moles/Vol] Sergio levi Elaine Ludwig Work Phone: Start: 09-23-2019 CREATININE W/GFR POI NT OF CARE Erin Elaine Ludwig Work Phone: Start: 09-23-2019 Gluc bld gluc mntr d ev cleared fda spec home use Erin Elaine Ludwig Work Phone: Start: 09-23-2019 LACTIC ACID,POINT OF CARE Erin Ludwig Work Phone: Start: 09-23-2019 Potassium [Moles/Vol] Omar kermit Elaine Oziel Work Phone: Start: 09-23-2019 Sodium [Moles/Vol] Jacquelinekalina elaine Avila Oziel Work Phone: Start: 09-23-2019 PATIENT STATUS (FROM ED OR OR/PROCEDURAL) ERIN LUDWIG Start: 09-23-2019 Ct cervical spine w/ o contrast material ERIN LUDWIG Start: 09-23-2019 Ct head/brain w/o co ntrast material ERIN LUDWIG Start: 09-23-2019 Ct maxillofacial w/o contrast material ERIN LUDWIG Start: 09-23-2019 Assay of ammonia Nina Imperial Work Phone: Start: 09-23-2019 Drug screen class list a ERIN LUDWIG Start: 09-23-2019 Urinalysis microscopic only ERIN LUDWIG Start: 09-23-2019 Urnls dip stick/tabl et rgnt auto w/o microscopy ERIN OZIEL Start: 09-23-2019 Radiologic exam ches t single view ERIN OZIEL Start: 09-23-2019 Cell enumeration imm une selectj [...] 09-23-2019 TRAUMA PANEL Fercho Torre Work Phone: Colonoscopy Lavonnechasity Zavalaab Destructive procedure Lavonne Diggs chwafaby Neck structure (body structure) Lavonne Deja Surgery (qualifier value) Alena chasity Deja Plan of Treatment Date Care Activity Detail Author Start: 10-13-2025 DIABETES SCREEN DIABETES SCREEN [facility] Start: 10-13-2025 Diabetes Screening Diabetes Screening [facility] Start: 10-12-2025 DIABETES SCREEN DIABETES SCREEN [facility] Start: 10-11-2025 DIABETES SCREEN DIABETES SCREEN [facility] Start: 09-22-2025 DIABETES SCREEN DIABETES SCREEN [facility] Start: 08-11-2025 DIABETES SCREEN DIABETES SCREEN [facility] Start: 08-09-2025 DIABETES SCREEN DIABETES SCREEN [facility] Start: 08-02-2025 DIABETES SCREEN DIABETES SCREEN [facility] Start: 07-22-2025 DIABETES SCREEN DIABETES SCREEN [facility] Start: 02-12-2025 ambulatory Ambulatory Facility:[facility] Start: 02-12-2025 ambulatory Ambulatory Facility:[facility] Start: 09-21-2024 Bacteria identified in Urine by Culture Urine Culture [facility] Start: 09-21-2024 Urine culture [facility] Start: 12-02-2023 [facility] Start: 12-02-2023 End: 12-02-2023 Patient encounter procedure 12/02/2023 4:00 PM EDT Procedure Visit [facility] Robbi Quezada MD [address] [id number] [facility] Start: 11-27-2023 Influenza vaccination Influenza Vaccine (Season Ended) [facility] Start: 07-22-2023 Bacteria identified in Urine by Culture [facility] Start: 04-22-2023 Bacteria identified in Blood by Culture [facility] Start: 04-22-2023 Superficial Wound Culture Superficial Wound Culture [facility] Start: 04-19-2023 [facility] Start: 04-18-2023 Administration of prophylactic treatment [facility] Start: 04-15-2023 Referral to gore cutter [facility] Start: 04-15-2023 Hospital admission [facility] Start: 03-28-2023 Advance Directive Discussion Advance Directive Discussion [facility] Start: 03-28-2023 Behavioral Health Screening Behavioral Health Screening [facility] Start: 03-28-2023 Depression Assessment Depression Assessment [facility] Start: 03-22-2023 [facility] Start: 2023 Administration of prophylactic treatment [facility] Start: 2023 [facility] Start: 2023 Referral to infectious diseases physician [facility] Start: 2023 Hospital admission [facility] Start: 2023 [facility] Start: 03-14-2023 Bacteria identified in Urine by Culture [facility] Start: 02-06-2023 [facility] Start: 02-04-2023 Hospital admission [facility] Start: 02-04-2023 [facility] Start: 01-10-2023 End: 03-12-2023 Bacteria identified in Urine by Culture [facility] Work Phone: Comment on above: Expected: 01/10/2023, Expires: Start: 11-26-2022 Covid-19 Vaccine (1 - 2023-24 season) Covid-19 Vaccine ( season) [facility] Start: 11-26-2022 Influenza vaccination [facility] Start: 03-28-2022 ADVANCE DIRECTIVE DISCUSSION ADVANCE DIRECTIVE DISCUSSION [facility] Start: 03-28-2022 DEPRESSION ASSESSMENT DEPRESSION ASSESSMENT [facility] Start: 09-22-2020 HbA1c (Bld) [Mass fraction] A1C test (Diabetic or Prediabetic) [place], [place] Start: 2020 Pneumococcal Vaccine: 65+ (1 - PCV) Pneumococcal Vaccine: 65+ (1 - PCV) [facility] Start: 2020 Pneumococcal Vaccine: 65+ (1 of 1 - PCV) Pneumococcal Vaccine: 65+ (1 of 1 - PCV) [facility] Start: 2020 PNEUMOCOCCAL: 65+ (1 - PCV) PNEUMOCOCCAL: 65+ (1 - PCV) [facility] Start: 11-27-2019 Influenza vaccination Flu vaccine (#1) [place], [place] Start: 2015 RSV Vaccine (1 - 1-dose 60+ series) RSV Vaccine (1 - 1-dose 60+ series) [facility] Start: 2010 PROSTATE CANCER SCREENING DISCUSSION PROSTATE CANCER SCREENING DISCUSSION [facility] Start: 2010 Prostate specific antigen measurement Prostate Cancer Screening Discussion [facility] Start: 2005 Screening for malignant neoplasm of colon Colon cancer screen colonoscopy [place], [place] Start: 2005 Shingles Vaccine (1 of 2) Shingles Vaccine (1 of 2) [place] Start: 2005 SHINGRIX VACCINE (1 of 2) SHINGRIX VACCINE (1 of 2) [facility] Start: 2000 COLOGUARD (FIT-DNA) COLOGUARD (FIT-DNA) [facility] Start: 2000 Colonoscopy COLONOSCOPY [facility] Start: 2000 COLORECTAL CANCER SCREENING COLORECTAL CANCER SCREENING [facility] Start: [address] COLONOGRAPHY [facility] Start: 2000 FECAL OCCULT BLOOD FECAL OCCULT BLOOD [facility] Start: 2000 Screening for malignant neoplasm of colon [facility] Start: 2000 SIGMOIDOSCOPY SIGMOIDOSCOPY [facility] Start: 1995 Lipid panel Lipid screen [place] Start: 1990 Lipid 1996 panel - Serum or Plasma Lipid Screening [facility] Start: 1990 Lipid panel Lipid Screening [facility] Start: 1990 LIPID SCREEN LIPID SCREEN [facility] Start: 1974 DTaP/Tdap/Td vaccine (1 - Tdap) DTaP/Tdap/Td vaccine (1 - Tdap) [place] Start: 1974 Urine microalbumin profile [facility] Start: 1970 HIV screening HIV screen [place] Start: 1955 COVID-19 VACCINE (#1) COVID-19 VACCINE (#1) [facility] Start: 1955 Hepatitis C screening Hepatitis C screen [place] Acapella Acapella Respira tory Care Routine Daily until discontinued starting 09/27/2019 [place] Comment on above: Daily until discontinued starting 2019 Bacteria identified in Unspecified specimen by Aerobe culture [facility] Bacteria identified in Urine by Culture [facility] Bacteria identified in Urine by Culture Urine culture Microbiology Routine 01/03/2024 9:10 AM EDT [facility] Work Phone: CATHETER INSERT-HERNANDEZ CATHETER I NSERT-HERNANDEZ Procedures Routine [...] for 1 Occurrences starting 09/23/2019 until 09/23/2019 [place] Comment on above: Once for 1 Occurrences starting 09/23/19 20 until 09/23/[address] 3D RECON STRUCTION Imaging STAT 09/23/2019 2:14 AM EDT [place] End: 10-01-2023 Ct abdomen & pelvis w/o [...] STAT 4X Daily until discontinued starting 09/25/2019 [facility] [place] Comment on above: 4X Daily until discontinued starting Incentive spirometry RT Incentiv e spirometry RT Respiratory Care Routine Every 2hr while awake until discontinued starting 09/27/2019 [facility] Comment on above: Every 2hr while awake until discontinued starting 09/27/2019 Initiate Oxygen Ther apy Protocol Initiate Oxygen Therapy Protocol Respiratory Care Routine Daily until discontinued starting 09/23/2019 [facility] [place] Comment on above: Daily until discontinued starting [...] Comment on above: Ordered: 09/09/2022 Patient Education [facility] Work Phone: Patient referral [facility] Work Phone: End: 11-26-2023 Radiologic [...] starting 10/13/2022 until 11/12/2023 [facility] HB6 [facility] MC ANGIO HB6 [facility] Payers Date Payer Category Payer [facility] BCBS [id number] 2023 Medicare (Managed Care) [facility] [id number] 2023 Self-pay [id number] 2023 Unknown [id number] 2022 Private Health Insurance [id number] 2021 Medicaid [id number] 2020 Medicare [id number]. [id number] 2019 Unknown [id number] 2019 Unknown GENERIC AUTO INS URANCE GENERIC [employer]O INSURANCE [id number] 2019-Present 2017 Unknown [id number] 2017 Unknown BCBS BCBS OUT OF STATE [id number] 2017-Present [address] [place] [address] [id number] 1959 Medicaid [id number] 2.16.840.1.264112.19 1959 Medicare [id number] 2.16.840.1.674564.19 1955 Unknown [id number] 2.16.840.1.521548.3.579.2. 175 1955 Unknown [id number] 2.16.840.1.574234.3.579.2. 593 1955 Unknown [id number] 2.16.840.1.277775.3.579.2. 593 1955 Unknown [id number] 2.16.840.1.385979.3.579.2. 593 1955 Unknown [id number] 2.16.840.1.075380.3.579.2. 593 1955 Unknown [id number] 2.16.840.1.827947.3.579.2. 593 1955 Unknown [id number] 2.16.840.1.125212.3.579.2. 593 1955 Unknown [id number] 2.16.840.1.946257.3.579.2. 593 1955 Unknown [id number] 2.16.840.1.726618.3.579.2. 593 1955 Unknown [id number] 2.16.840.1.262607.3.579.2. 593 1955 Unknown [id number] 2.16.840.1.313303.3.579.2. 593 1955 Unknown [id number] 2.16.840.1.917267.3.579.2. 593 1955 Unknown [id number] 2.16.840.1.362924.3.579.2. 593 1955 Unknown [id number] 2.16.840.1.987095.3.579.2. 727 1955 Unknown [id number] 2.16.840.1.219209.3.579.2. 727 1955 Unknown [id number] 2.16.840.1.262511.3.579.2. 72 1955 Unknown [id number] 2.16.840.1.484367.3.579.2. 72 1955 Unknown [id number] 2.16.840.1.640653.3.579.2. 72 1955 Unknown [id number] 2.16.840.1.725416.3.579.2. 72 1955 Unknown [id number] 2.16.840.1.416060.3.579.2 72 1955 Unknown [id number] 2.16.840.1.734645.3.579.2. 72 1955 Unknown [id number] 2.16.840.1.861244.3.579.2. 72 1955 Unknown [id number] 2.16.840.1.383973.3.579.2. 727 1955 Unknown [id number] 2.16.840.1.979544.3.579.2. 72 1955 Unknown [id number] 2.16.840.1.839094.3.579.2. 72 1955 Unknown [id number] 2.16.840.1.050234.3.579.2. 727 1955 Unknown [id number] 2.16.840.1.869832.3.579.2. 727 1955 Unknown [id number] 2.16.840.1.132907.3.579.2. 727 1955 Unknown [id number] 2.16.840.1.490139.3.579.2. 727 Unknown [id number] 2.16.840.1.522812.3.579.2. 531 Unknown [id number] 2.16.840.1.346993.3.579.2. 531 Unknown [id number] 2.16.840.1.841409.3.579.2. 531 Unknown [id number] 2.16.840.1.833589.3.579.2. 531 Social History Date Type Detail Facility Start: 09-25-2019 End: 10-13-2019 Tobacco smoking status COIS Unknown if ever smoked [facility] Start: 09-25-2019 Alcohol intake Current drinke r of alcohol (finding) [place] Start: 09-23-2019 Alcohol Comment unable to asses [place], [place] Start: 1955 Sex Assigned At Not on file M [place] Exposure to SARS-CoV -2 (event) Unable to assess [place] Start: 07-23-2022 End: 05-24-2023 Sex Assigned At [facility] Start: 07-15-2021 End: 05-08-2024 Tobacco smoking status NHIS Smoker (finding) [facility] Start: 1955 Sex Assigned At Male F [facility] Start: 07-23-2022 End: 08-06-2022 Alcohol intake Ex-drinker (finding) [facility] Start: 07-23-2022 History SDOH Financial 5 [facility] Start: 07-23-2022 History SDOH Food Worry 1 [facility] Start: 07-23-2022 History SDOH Transpo rt Med 2 [facility] Start: 07-23-2022 End: 05-24-2023 History of Social function [facility] How hard is it for y ou to pay for the very basics like food, housing, medical care, and heating Not hard at all [facility] (I/We) worried annamaria er (my/our) food would run out before (I/we) got money to buy more. Never true [facility] In the past 12 month s, was there a time when you were not able to pay the mortgage or rent on time? No [facility] Start: 03-14-2023 End: 2023 Tobacco smoking status COIS Never smoked tobacco (finding) [facility] Start: 04-15-2023 Tobacco smoking stat us COIS Ex-smoker (finding) [facility] Start: 05-24-2023 End: 09-18-2024 Tobacco smoking status COIS Smokes tobacco daily [facility] History of tobacco use Cigarette Smoker [facility] Start: 05-24-2023 Tobacco use and exposure Smokeless tobacco non-user [facility] Start: 07-08-2024 Sex Male (finding) [facility] Medical Equipment Procedure Code Equipment Code Equipment Original Text Equipment Identifier Dates Screw Multi Axia l 3.5x14mm [id number] Start: 09-24-2019 Screw Lk Infinity Ti Set [id number] Start: 09-24-2019 Impl Librado Pre-Cut 3.5x30mm [id number] Start: 09-24-2019 Impl Spine Librado I nfinity 3.5x40mm [id number] Start: 09-24-2019 Stent Inlay Opti ma 7fr Taper [place] Green Polymer Phreecoat 26cm Ureteral - [id number] Start: 08-09-2022 Tray Powerline S urecuff 5fr Polyurethane Catheter 1 Lumen Microintroducer - [id number] Start: 09-24-2022 Stent Inlay Opti ma 7fr Taper [place] Green Phreecoat Polymer 28cm Ureteral - [id number] Start: 10-11-2022 Goals Date Patient Goal Desired Activity /State Functional Status Date Assessment Result Facility 05-22-2024 Functional Status N/A [facility] 03-22-2023 Functional status Patient at [facility] Work Phone: 02-06-2023 Functional status Patient at [facility] Work Phone: Mental Status Date Assessment Result Facility 03-22-2023 Cognitive function Cognitive Sta tus Patient at [facility] Work Phone: 02-06-2023 Cognitive function Cognitive Sta tus Patient at [facility] Work Phone: Clinical Notes 01-01-2022 to 09-18-2024 Note Date & Type Note Facility 09-18-2024 Evaluation note Diagnosis Onset Date Resolution At high risk for skin breakdown acute September 18, 2024 12:59pm Delayed wound healing acute Aug 12:59pm Pressure injury of right buttock, stage 3 acute August 12:59pm Quadriplegia acute September 18 12:59pm Sacral pain acute September 18 12:59pm Stage IV pressure ulcer of sacral region acute September 18, 2024 12:59pm Poor appetite chronic September 18, 2024 12:59pm [facility] Work Phone: 1(828) 382-814503-03-2025 Telephone encounter Note* Telephone Encounter - Henrietta Taylor MA - 05/28/2024 3:44 PM EST Please advise patient refill request. Patient has not been seen since 05/24/2023. [facility] [id number] Miscellaneous Notes* Telephone Encounter - Henrietta Taylor MA - 05/28/2024 3:44 PM EST Please advise patient refill request. Patient has not been seen since 05/24/2023. documented in this encounterMid [facility] [id number] Hospital Discharge instructions Patient Education 05/22/2024 12:34:47 Kidney Stones, [id number] Kidney Stones Kidney stones are rock-like masses that form inside of the kidneys. Kidneys are organs that make pee (urine). A kidney stone may move into other parts of the urinary tract, including: The tubes that connect the kidneys to the bladder (ureters). The bladder. The tube that carries urine out of the body (urethra). Kidney stones can cause very bad pain and can block the flow of pee. The stone usually leaves your body through your pee. A doctor may need to take out the stone. What are the causes? Kidney stones may be caused by: Too much calcium in the body. This may be caused by too much parathyroid hormone in the blood. Uric acid crystals in the bladder. The body makes uric acid when you eat certain foods. Narrowing of one or both of the ureters. A kidney blockage that you were born with. Past surgery on the kidney or the ureters. What increases the risk? You are more likely to develop this condition if: You have had a kidney stone in the past. Other people in your family have had kidney stones. You do not drink enough water. You eat a diet that is high in protein, salt (sodium), or sugar. You are very overweight (obese). What are the signs or symptoms? Symptoms of a kidney stone may include: Pain in the side of the belly, right below the ribs. Pain usually spreads to the groin. Needing to pee often or right away. Pain when peeing. Blood in your pee. Feeling like you may vomit (nauseous). Vomiting. Fever and chills. How is this treated? Treatment depends on the size, location, and makeup of the kidney stones. The stones will often pass out of the body when you pee. You may need to: Drink more fluid to help pass the stone. ?In some cases, you may be given fluids through an IV tube at the hospital. Take medicine for pain. Change your diet to help keep kidney stones from coming back. Sometimes, you may need: A procedure to break up kidney stones using a beam of light (laser) or shock waves. Surgery to remove the kidney stones. Follow these instructions at home: Medicines Take vwpc-vvq-gpgqpxj and prescription medicines only as told by your doctor. Ask your doctor if the medicine prescribed to you requires you to avoid driving or using machinery. Eating and drinking Drink enough fluid to keep your pee pale yellow. ?You may be told to drink at least 8 10 glasses of water each day. This will help you pass the stone. If told by your doctor, change your diet. You may be told to: ?Limit how much salt you eat. ?Eat more fruits and vegetables. ?Limit how much meat, poultry, fish, and eggs you eat. Follow instructions from your doctor about what you may eat and drink. General instructions Collect pee samples as told by your doctor. You may need to collect a pee sample: ?24 hours after a stone comes out. ?8 12 weeks after a stone comes out, and every 6 12 months after that. Strain your pee every time you pee. Use the strainer that your doctor recommends. Do not throw out the stone. Keep it so that it can be tested by your doctor. Keep all follow-up visits. You may need X-rays and ultrasounds to make sure the stone has come out. How is this prevented? To prevent another kidney stone: Drink enough fluid to keep your pee pale yellow. This is the best way to prevent kidney stones. Eat healthy foods. Avoid certain foods as told by your doctor. You may be told to eat less protein. Stay at a healthy weight. Where to find more information National Kidney Foundation (NKF): kidney.org Urology Care Foundation (UCF): urologyhealth.org Contact a doctor if: You have pain that gets worse or does not get better with medicine. Get help right away if: You have a fever or chills. You get very bad pain. You get new pain in your belly. You faint. You cannot pee. This information is not intended to replace advice given to you by your health care provider. Make sure you discuss any questions you have with your health care provider. Document Revised: 11/05/2022 Document Reviewed: 11/05/2022 [employer] Patient Education 2023 [employer] Follow Up Care 05/10/2024 11:34:17 With:[facility] Address: When: Unknown Comments:Only if needed/new problems arise. No scheduled appointment indicated at this time. [facility] 02-25-2025 NotePatient Education Urology Kidney Stones Kidney stones are rock-like masses that form inside of the kidneys. Kidneys are organs that make pee (urine). A kidney stone may move into other parts of the urinary tract, including: ??? The tubes that connect the kidneys to the bladder (ureters). ??? The bladder. ??? The tube that carries urine out of the body (urethra). Kidney stones can cause very bad pain and can block the flow of pee. The stone usually leaves your body through your pee. A doctor may need to take out the stone. What are the causes? Kidney stones may be caused by: ??? Too much calcium in the body. This may be caused by too much parathyroid hormone in the blood. ??? Uric acid crystals in the bladder. The body makes uric acid when you eat certain foods. ??? Narrowing of one or both of the ureters. ??? A kidney blockage that you were born with. ??? Past surgery on the kidney or the ureters. What increases the risk? You are more likely to develop this condition if: ??? You have had a kidney stone in the past. ??? Other people in your family have had kidney stones. ??? You do not drink enough water. ??? You eat a diet that is high in protein, salt (sodium), or sugar. ??? You are very overweight (obese). What are the signs or symptoms? Symptoms of a kidney stone may include: ??? Pain in the side of the belly, right below the ribs. Pain usually spreads to the groin. ??? Needing to pee often or right away. ??? Pain when peeing. ??? Blood in your pee. ??? Feeling like you may vomit (nauseous). ??? Vomiting. ??? Fever and chills. How is this treated? Treatment depends on the size, location, and makeup of the kidney stones. The stones will often pass out of the body when you pee. You may need to: ??? Drink more fluid to help pass the stone. ? In some cases, you may be given fluids through an IV tube at the hospital. ??? Take medicine for pain. ??? Change your diet to help keep kidney stones from coming back. Sometimes, you may need: ??? A procedure to break up kidney stones using a beam of light (laser) or shock waves. ??? Surgery to remove the kidney stones. Follow these instructions at home: Medicines ??? Take givo-ijy-dergesg and prescription medicines only as told by your doctor. ??? Ask your doctor if the medicine prescribed to you requires you to avoid driving or using machinery. Eating and drinking ??? Drink enough fluid to keep your pee pale yellow. ? You may be told to drink at least 8?10 glasses of water each day. This will help you pass the stone. ??? If told by your doctor, change your diet. You may be told to: ? Limit how much salt you eat. ? Eat more fruits and vegetables. ? Limit how much meat, poultry, fish, and eggs you eat. ??? Follow instructions from your doctor about what you may eat and drink. General instructions ??? Collect pee samples as told by your doctor. You may need to collect a pee sample: ? 24 hours after a stone comes out. ? 8?12 weeks after a stone comes out, and every 6?12 months after that. ??? Strain your pee every time you pee. Use the strainer that your doctor recommends. ??? Do not throw out the stone. Keep it so that it can be tested by your doctor. ??? Keep all follow-up visits. You may need X-rays and ultrasounds to make sure the stone has come out. How is this prevented? To prevent another kidney stone: ??? Drink enough fluid to keep your pee pale yellow. This is the best way to prevent kidney stones. ??? Eat healthy foods. ??? Avoid certain foods as told by your doctor. You may be told to eat less protein. ??? Stay at a healthy weight. Where to find more information ??? National Kidney Foundation (NKF): kidney.org ??? Urology Care Foundation (UCF): urologyhealth.org Contact a doctor if: ??? You have pain that gets worse or does not get better with medicine. Get help right away if: ??? You have a fever or chills. ??? You get very bad pain. ??? You get new pain in your belly. ??? You faint. ??? You cannot pee. This information is not intended to replace advice given to you by your health care provider. Make sure you discuss any questions you have with your health care provider. Document Revised: 11/05/2022 Document Reviewed: 11/05/2022 Elsevier Patient Education ? 2023 [employer].[facility] 05-09-2024 Evaluation + Plan note Diagnostic Tests Pending * Urine Culture 05/09/24 [facility] 02-11-2025 Evaluation note* Diagnosis Onset Date Resolution Status Admit Date At high risk for skin breakdown acute May 08 10:46am Delayed wound healing acute Feb ruary 2024 10:46am Hernandez catheter in place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 Family Medicine 07/14/22 English Composition Instructor Relationship Specialty Start Date End Date Vicenta Ana Walton DO [address] [place] [address] PCP - General Family Medicine 07/14/22 English Composition Instructor Relationship Specialty Start Date End Date Vicenta Ana Walton [address] [place] [address] PCP - General Family Medicine 07/14/22 English Composition Instructor Relationship Specialty Start Date End Date Vicenta Ana Walton DO [address] [place] [address] PCP - General Family Medicine 07/14/22 English Composition Instructor Relationship Specialty Start Date End Date Vicenta Ana Walton DO [address] [place] [address] PCP - General Family Medicine 07/14/22 English Composition Instructor Relationship Specialty Start Date End Date Vicenta Ana Walton DO [address] [place] [address] PCP - General Family Medicine 07/14/22 English Composition Instructor Relationship Specialty Start Date End Date Vicenta Ana Walton DO [address] [place] [address] PCP - General Family Medicine 07/14/22 English Composition Instructor Relationship Specialty Start Date End Date Ana Foley DO [address] [place] [address] PCP - General Family Medicine 07/14/22 English Composition Instructor Relationship Specialty Start Date End Date Ana Foley DO [address] [place] [address] PCP - General Family Medicine 07/14/22 English Composition Instructor Relationship Specialty Start Date End Date Ana Foley DO [address] [place] [address] PCP - General Family Medicine 07/14/22 English Composition Instructor Relationship Specialty Start Date End Date Ana Foley DO [address] [place] [address] PCP - General Family Medicine 07/14/22 English Composition Instructor Relationship Specialty Start Date End Date Ana Foley DO [address] [place] [address] PCP - General Family Medicine 07/14/22 English Composition Instructor Relationship Specialty Start Date End Date Ana Foley DO [address] [place] [address] PCP - General Family Medicine 07/14/22 English Composition Instructor Relationship Specialty Start Date End Date Ana Foley DO [address] [place] [address] PCP - General Family Medicine 07/14/22 English Composition Instructor Relationship Specialty Start Date End Date Ana Foley DO [address] [place] [address] PCP - General Family Medicine 07/14/22 English Composition Instructor Relationship Specialty Start Date End Date Vicenta Ana Walton DO [address] [facility] [address] PCP - General Family Medicine 07/14/22 English Composition Instructor Relationship Specialty Start Date End Date Vicenta Ana Walton DO [address] [facility] [address] PCP - General Family Medicine 07/14/22 Team [...] Foley , DO Primary Care Provider Active English Composition Instructor Relationship Specialty Start Date End Date Vicenta Ana Walton DO [address] [facility] [place] [place] [address] PCP - General Family Medicine 07/14/22 Team [...] Active Ray Betancourt MD Attending Provider Active English Composition Instructor Relationship Specialty Start Date End Date Vicenta Ana Walton DO [address] [facility] [place] [address] PCP - General Family Medicine 07/14/22 English Composition Instructor Relationship Specialty Start Date End Date Ana Foley DO [address] [facility] [place] [address] PCP - General Family Medicine 07/14/22 Team [...] 2023 End: February 14, 2023 William Carver , Emergency Provider Active St art: February 14, [...] Active Start: April 15, 2023 Jim Arcos , Admit Provider Active Start: April 15, 2023 Medardo Muñiz MD Other Provider Active Start: April 15, 2023 Jacqueline Acosta DO Other Provider Active Start: April 15, 2023 Francisco Turpin MD Other Provider Active Start : April 15, 2023 Jennifer Loaiza MD Other Provider Active Start: Raheem streetary 2023 Joaquin Eduardo MD Other Provider Active Start: April 15, 2023 Zacarias Adames MD Other Provider Active Start: Mar Luther Beatty APRN Other Provider Active St art: April 15, 2023 Renato Nunez MD Other Provider Active Start: Mar Wan Gordon MD Other Provider Active Start: J anuary 2023 Kip Hunt MD Other Provider Active Start: April 15, 2023 Emily Benites APRN Attending Provider Active Sta rt: April 15, 2023 Team Status: Inactive Member Role Status Dates Kary Boone APRN Emergency Provider Active Start: April 22, 2023 End: April 22, 2023 Ana Foley DO Primary Care Provider Active Start: April 22, 2023 End: April 22, 2023 English Composition Instructor Relationship Specialty Start Date End Date Ana Foley DO [address] [place] [address] PCP - General Family Medicine 07/14/22 Team Status: Active Member Role Status Dates Janeth Lehman LPN Care Manager Active Ana Foley , DO Primary Care Provider Active Team Status: Active Member Role Status Dates Ana Foley , DO Primary Care Provide r, Attending Provider Active Start: May 04, 2023 Team Status: Active Member Role Status Dates Ana Foley , Primary Care Provider Active Start: July 01, [...] July 22, 2023 End: July 23, 2023 English Composition Instructor Relationship Specialty Start Date End Date Ana Foley DO [address] [place] [address] PCP - General Family Medicine 07/14/22 English Composition Instructor Relationship Specialty Start Date End Date Ana Foley DO [address] [place] [address] PCP - General Family Medicine 07/14/22 Team Status: Active Member Role Status Dates Ese Alonso LPN Care Manager Active Lavonne Short , SCIENTIFIC DIRECTOR-C Primary Care Provider Active Team Status: Active Member Role Status Dates Ana Foley DO Primary Care Provide r, Attending Provider Active Start: November 02, 2023 Team Status: Active Member Role Status Dates Ana Foley DO Primary Care Provider Active Start: November 22, 2023 Lavonne Barrett APRN Active Star t: November 22, 2023 Annabella Marino APRN Active Start: Omar [email or web address] Robbi Quezada MD Attending Provider Active Sta rt: November 22, 2023 Team Status: Inactive Member Role Status Dates Robbi Quezada MD Attending Provider Active Sta rt: November 29, 2023 End: November 29, 2023 Lavonne Short NP-C Primary Care Provider Active Start: November 29, 2023 End: November 29, 2023 Team Status: Inactive Member Role Status Dates Robbi Quezada MD Attending Provider Active Sta rt: December 02, 2023 End: December 02, 2023 Lavonne Short NP-C Primary Care Provider Active Start: December 02, 2023 End: December 02, 2023 English Composition Instructor Relationship Specialty Start Date End Date Ana Foley DO [address] [facility] [place] [address] PCP - General Family Medicine 05/24/23 English Composition Instructor Relationship Specialty Start Date End Date Ana Foley DO [address] [facility] [place] [address] PCP - General Family Medicine 05/24/23 English Composition Instructor Relationship Specialty Start Date End Date Ana Foley DO [address] [facility] [place] [address] PCP - General Family Medicine 05/24/23 Team Status: Inactive Member Role Status Dates Ana Foley DO Primary Care Provider Active Start: May 08, 2024 End: May 08, 2024 Lavonne Barrett APRN Active Star t: May 08, 2024 End: May 08, 2024 Annabella Marino APRN Active Start: Darrel rubio 2024 End: May 08, 2024 Robbi Quezada MD Attending Provider Active Sta rt: May 08, 2024 End: May 08, 2024 Team Status: Active Member Role Status Dates Ese Alonso LPN Care Manager Active Team Status: Active Member Role Status Dates LISHA Samuels Primary Care Provider Active Start: September 18, 2024 Matilde Dillard APRN Attending Provider Active Start: September 18, 2024 Team Status: Inactive Member Role Status Dates LISHA Samuels Attending Provider Active Start: September 21, 2024 End: September 21, 2024 Goals (unrecognized section and content) Goals may be documented in a n alternate section Source Comments (unrecognize d section and content) In the event this informatio n is protected by the Federal Confidentiality of Alcohol and Drug Abuse Patient Records regulations: The Federal rules restrict any use of the information to criminally investigate or prosecute any alcohol or drug abuse patient.[facility] the event this information is protected by the Federal Confidentiality of Alcohol and Drug Abuse Patient Records regulations: The Federal rules restrict any use of the information to criminally investigate or prosecute any alcohol or drug abuse patient.[facility] the event this information is protected by the Federal Confidentiality of Alcohol and Drug Abuse Patient Records regulations: The Federal rules restrict any use of the information to criminally investigate or prosecute any alcohol or drug abuse patient.[facility] the event this information is protected by the Federal Confidentiality of Alcohol and Drug Abuse Patient Records regulations: The Federal rules restrict any use of the information to criminally investigate or prosecute any alcohol or drug abuse patient.[facility] HospitalIn the event this information is protected by the Federal Confidentiality of Alcohol and Drug Abuse Patient Records regulations: The Federal rules restrict any use of the information to criminally investigate or prosecute any alcohol or drug abuse patient.[facility] HospitalIn the event this information is protected by the Federal Confidentiality of Alcohol and Drug Abuse Patient Records regulations: The Federal rules restrict any use of the information to criminally investigate or prosecute any alcohol or drug abuse patient.[facility] HospitalIn the event this information is protected by the Federal Confidentiality of Alcohol and Drug Abuse Patient Records regulations: The Federal rules restrict any use of the information to criminally investigate or prosecute any alcohol or drug abuse patient.[facility] HospitalIn the event this information is protected by the Federal Confidentiality of Alcohol and Drug Abuse Patient Records regulations: The Federal rules restrict any use of the information to criminally investigate or prosecute any alcohol or drug abuse patient.[facility] HospitalIn the event this information is protected by the Federal Confidentiality of Alcohol and Drug Abuse Patient Records regulations: The Federal rules restrict any use of the information to criminally investigate or prosecute any alcohol or drug abuse patient.[facility] HospitalIn the event this information is protected by the Federal Confidentiality of Alcohol and Drug Abuse Patient Records regulations: The Federal rules restrict any use of the information to criminally investigate or prosecute any alcohol or drug abuse patient.[facility] HospitalIn the event this information is protected by the Federal Confidentiality of Alcohol and Drug Abuse Patient Records regulations: The Federal rules restrict any use of the information to criminally investigate or prosecute any alcohol or drug abuse patient.[facility] HospitalIn the event this information is protected by the Federal Confidentiality of Alcohol and Drug Abuse Patient Records regulations: The Federal rules restrict any use of the information to criminally investigate or prosecute any alcohol or drug abuse patient.[facility] HospitalIn the event this information is protected by the Federal Confidentiality of Alcohol and Drug Abuse Patient Records regulations: The Federal rules restrict any use of the information to criminally investigate or prosecute any alcohol or drug abuse patient.[facility] HospitalIn the event this information is protected by the Federal Confidentiality of Alcohol and Drug Abuse Patient Records regulations: The Federal rules restrict any use of the information to criminally investigate or prosecute any alcohol or drug abuse patient.[facility] HospitalIn the event this information is protected by the Federal Confidentiality of Alcohol and Drug Abuse Patient Records regulations: The Federal rules restrict any use of the information to criminally investigate or prosecute any alcohol or drug abuse patient.[facility] HospitalIn the event this information is protected by the Federal Confidentiality of Alcohol and Drug Abuse Patient Records regulations: The Federal rules restrict any use of the information to criminally investigate or prosecute any alcohol or drug abuse patient.[facility] HospitalIn the event this information is protected by the Federal Confidentiality of Alcohol and Drug Abuse Patient Records regulations: The Federal rules restrict any use of the information to criminally investigate or prosecute any alcohol or drug abuse patient.[facility] HospitalIn the event this information is protected by the Federal Confidentiality of Alcohol and Drug Abuse Patient Records regulations: The Federal rules restrict any use of the information to criminally investigate or prosecute any alcohol or drug abuse patient.[facility] HospitalIn the event this information is protected by the Federal Confidentiality of Alcohol and Drug Abuse Patient Records regulations: The Federal rules restrict any use of the information to criminally investigate or prosecute any alcohol or drug abuse patient.[facility] HospitalIn the event this information is protected by the Federal Confidentiality of Alcohol and Drug Abuse Patient Records regulations: The Federal rules restrict any use of the information to criminally investigate or prosecute any alcohol or drug abuse patient.[facility] HospitalIn the event this information is protected by the Federal Confidentiality of Alcohol and Drug Abuse Patient Records regulations: The Federal rules restrict any use of the information to criminally investigate or prosecute any alcohol or drug abuse patient.[facility] HospitalIn the event this information is protected by the Federal Confidentiality of Alcohol and Drug Abuse Patient Records regulations: The Federal rules restrict any use of the information to criminally investigate or prosecute any alcohol or drug abuse patient.[facility] HospitalIn the event this information is protected by the Federal Confidentiality of Alcohol and Drug Abuse Patient Records regulations: The Federal rules restrict any use of the information to criminally investigate or prosecute any alcohol or drug abuse patient.[facility] HospitalIn the event this information is protected by the Federal Confidentiality of Alcohol and Drug Abuse Patient Records regulations: The Federal rules restrict any use of the information to criminally investigate or prosecute any alcohol or drug abuse patient.[facility] HospitalIn the event this information is protected by the Federal Confidentiality of Alcohol and Drug Abuse Patient Records regulations: The Federal rules restrict any use of the information to criminally investigate or prosecute any alcohol or drug abuse patient.[facility] HospitalIn the event this information is protected by the Federal Confidentiality of Alcohol and Drug Abuse Patient Records regulations: The Federal rules restrict any use of the information to criminally investigate or prosecute any alcohol or drug abuse patient.[facility] HospitalIn the event this information is protected by the Federal Confidentiality of Alcohol and Drug Abuse Patient Records regulations: The Federal rules restrict any use of the information to criminally investigate or prosecute any alcohol or drug abuse patient.[facility] HospitalIn the event this information is protected by the Federal Confidentiality of Alcohol and Drug Abuse Patient Records regulations: The Federal rules restrict any use of the information to criminally investigate or prosecute any alcohol or drug abuse patient.[facility] HospitalIn the event this information is protected by the Federal Confidentiality of Alcohol and Drug Abuse Patient Records regulations: The Federal rules restrict any use of the information to criminally investigate or prosecute any alcohol or drug abuse patient.[facility] HospitalIn the event this information is protected by the Federal Confidentiality of Alcohol and Drug Abuse Patient Records regulations: The Federal rules restrict any use of the information to criminally investigate or prosecute any alcohol or drug abuse patient.[facility] HospitalIn the event this information is protected by the Federal Confidentiality of Alcohol and Drug Abuse Patient Records regulations: The Federal rules restrict any use of the information to criminally investigate or prosecute any alcohol or drug abuse patient.[facility] HospitalIn the event this information is protected by the Federal Confidentiality of Alcohol and Drug Abuse Patient Records regulations: The Federal rules restrict any use of the information to criminally investigate or prosecute any alcohol or drug abuse patient.[facility] HospitalIn the event this information is protected by the Federal Confidentiality of Alcohol and Drug Abuse Patient Records regulations: The Federal rules restrict any use of the information to criminally investigate or prosecute any alcohol or drug abuse patient.[facility] HospitalIn the event this information is protected by the Federal Confidentiality of Alcohol and Drug Abuse Patient Records regulations: The Federal rules restrict any use of the information to criminally investigate or prosecute any alcohol or drug abuse patient.[facility] HospitalIn the event this information is protected by the Federal Confidentiality of Alcohol and Drug Abuse Patient Records regulations: The Federal rules restrict any use of the information to criminally investigate or prosecute any alcohol or drug abuse patient.[facility] HospitalIn the event this information is protected by the Federal Confidentiality of Alcohol and Drug Abuse Patient Records regulations: The Federal rules restrict any use of the information to criminally investigate or prosecute any alcohol or drug abuse patient.[facility] HospitalIn the event this information is protected by the Federal Confidentiality of Alcohol and Drug Abuse Patient Records regulations: The Federal rules restrict any use of the information to criminally investigate or prosecute any alcohol or drug abuse patient.[facility] FOR RECORDS PERTAINING TO PATIENTS WHO [...] BE BASED ON THE PRIMARY CLINICAL RECORDS. [facility]. provides no warranty or guarantee of the accuracy or completeness of information in this document.
[2024-12-11 13:50] LABS: Glucose Urine UA NEGATIVE (NEGATIVE)
== END 2024-12-11 12:47 | disposition home or self-care (01) ==
LOC: LAB 12:46
PROVIDERS: PCP Nurse Practitioner; Visit Provider Nurse Practitioner
DX: N39.0 Urinary tract infection, site not specified (principal)
CPT/HCPCS: 81003; 87086